=== PATIENT | male | born 1965 | race Caucasian/White ===

== ENCOUNTER 2016-05-30 13:17 | Outpatient (RCR) | payer MEDICARE, MEDICAID ==
--- OUTSIDE RECORDS SUMMARY | 2016-05-16 15:02 | XMS REPORT | Continuity of Care Document ---
Author Author [facility] Organization [facility] Address Unknown Phone Unavailable Care Team Providers Care Chief Airline Radio Operator Name Role Phone Gildardo Walker PCP [phone] Source Comments Some departments are not documenting in the electronic medical record. If you do not see the information that you expected, contact Release of Information in the Health Information Management department at [phone] for further assistance in locating additional records.[facility] Active Allergies and Adverse Reactions Allergen Noted Date Severity Reactions Comments Codeine 02/10/2014 NAUSEA AND VOMITING Morphine 02/10/2014 ITCHING Current Medications Prescription Sig. Disp. Refills Start End Date Status Date amLODIPine (NORVASC) 10 Take 10 mg by mouth every Active mg tablet morning. clonazePAM (KLONOPIN) 2 Take 2 mg by mouth twice Active mg tablet daily. sertraline (ZOLOFT) 100 Take 100 mg by mouth at Active mg tablet bedtime daily. acyclovir (ZOVIRAX) 400 Take 400 mg by mouth Active mg tablet twice daily. pregabalin (LYRICA) 50 mg Take 50 mg by mouth three Active capsule times daily. ondansetron (ZOFRAN) 8 mg Take 8 mg by mouth every Active tablet 8 hours as needed. docusate (COLACE) 100 mg Take 1 Cap by mouth twice 60 Cap 3 03/13/20 Active capsule daily as needed for 14 Constipation. oxyCODONE (ROXICODONE) 5 Take 1-2 Tabs by mouth 40 Tab 0 04/07/20 Active mg tablet every 4 hours as needed 14 for Pain Earliest Fill Date: 04/07/14 senna/docusate Take 1 Tab by mouth twice 30 Tab 3 04/07/20 Active (SENOKOT-S) 8.6/50 mg daily as needed 14 tablet (constipation). aspirin 325 mg tablet Take 1 Tab by mouth 90 Tab 3 04/07/20 Active daily. 14 polyethylene glycol 3350 Take 1 Packet by mouth 12 Each 3 04/07/20 Active (MIRALAX) 17 g packet twice daily as needed 14 (constipation). Active Problems Problem Noted Date History of urostomy 04/21/2014 C. difficile diarrhea 03/31/2014 Incontinence 03/26/2014 Ureteral stricture, left 03/12/2014 Incontinence of urine 02/10/2014 Erectile dysfunction 02/10/2014 Urinary retention 02/10/2014 Rectal cancer (HCC) 02/10/2014 Overview: [id number] S/p brain-adjuvant chemo/XRT S/p LAR with diverting ileostomy S/p ileostomy takedown. Ureteral stricture 02/10/2014 Overview: Indwelling JJ stent on left Social History Tobacco Use Types Packs/Day Years Used Date Never Smoker Smokeless Tobacco: Never Used Alcohol Use Drinks/Week oz/Week Comments No Last Filed Vital Signs Vital Sign Reading Time Taken Blood Pressure 109/75 04/21/2014 8:37 AM CDT Pulse 80 04/21/2014 8:37 AM CDT Temperature 36.7 C (98.1 F) 04/07/2014 11:43 AM CDT Respiratory Rate - - Height 1.702 m (5' 7") 04/21/2014 8:37 AM CDT Weight 77.111 kg (170 lb) 04/21/2014 8:37 AM CDT Body Mass Index 26.62 04/21/2014 8:37 AM CDT Oxygen Saturation 100% 04/07/2014 11:43 AM CDT Plan of Care Health Maintenance Due Date Last Done Comments Physical (Comprehensive) 1973 Exam Pertussis Vaccine 1977 Tetanus Vaccine 1983 Influenza Vaccine 03/17/2016 Results from Last 3 Months Not on file
[2016-05-16 15:09] LABS: BASOPHILS % (AUTO) 0 % (0-10); EOSINOPHILS # (AUTO) 0.2 10^3/uL (0.0-0.3); EOSINOPHILS % (AUTO) 3 % (0-10); LYMPHOCYTES # (AUTO) 1.9 X 10^3 (1.0-4.0); LYMPHOCYTES % (AUTO) 24 % (12-44); MEAN CORPUSCULAR HEMOGLOBIN 27 PG (25-34); MEAN CORPUSCULAR HGB CONC 34 G/DL (32-36); MEAN CORPUSCULAR VOLUME 80 FL (80-99); MEAN PLATELET VOLUME 9.4 FL (7.4-10.4); MONOCYTES # (AUTO) 0.4 X 10^3 (0.0-1.0); MONOCYTES % (AUTO) 5 % (0-12); NEUTROPHILS # (AUTO) 5.3 X 10^3 (1.8-7.8); NEUTROPHILS % (AUTO) 68 % (42-75); PLATELET COUNT 380 10^3/uL (130-400); RED CELL DISTRIBUTION WIDTH 14.9 % (10.0-14.5); WHITE BLOOD COUNT 7.8 10^3/uL (4.3-11.0)
[2016-05-16 15:35] LABS: ALBUMIN 4.3 G/DL (3.2-4.5); BILIRUBIN,TOTAL 0.6 MG/DL (0.1-1.0); CALCIUM 8.8 MG/DL (8.5-10.1); CREATININE SERUM 1.5 MG/DL (0.60-1.30); POTASSIUM 4.2 MMOL/L (3.6-5.0); TOTAL PROTEIN 7.2 G/DL (6.4-8.2)
[~2016-05-30 13:17] MED LIST: ACHYD1T PO; ACID1TAB PO; ACID1TAB5 PO; ALPR0.5T PO; ALPR0.5T7 PO; AMIT25TA9 PO; AMIT75TA2 PO; AMLO10TA PO; AMLO5TAB2 PO; AMOX500C2 PO; AMOX500T2 PO; AMPI250C11 PO; ASCO500T20 PO; ASPI1TAB22 PO; BISA5TAB8 PO; BTH25T1 PO; CEFU250T PO; CIPR-225 PO; CIPR500T78 PO; CLON2TAB3 PO; CPR250T PO; CRANBERRY JUICE; DICY10CA12 PO; DOXE100C4 PO; FERR324T PO; FNT100TD TD; FRS325T PO; GABA-488 PO; GABA600T2 PO; GBPN300C PO; HYDR-2890 PO; HYDR-3458 PO; HYDR-3583 PO; HYDR-3720 PO; HYOS0.1234 PO; HYOS0.1283 SL; LACT1CAP39 PO; LACT1CAP62 PO; LEVO750T6 PO; LOPE2CAP PO; MAG PO; MAGN400T29 PO; METO5TAB2 PO; METR500T17 PO; MGX400T PO; MTR500T PO; NITR-65 PO; ONDA-42 SL; ONDA8TAB13 PO; ONDA8TAB2 PO; ONDA8TAB9 PO; ONDN4T PO; OXC10TCR PO; OXYC-12 PO; OXYC-465; OXYC-465 PO; OXYC1TAB16 PO; OXYC1TAB17 PO; OXYC20TA14 PO; OXYC30TA80 PO; Oxycodone Hcl PO; PANT40TA PO; PHEN100T26 PO; PHEN200T27 PO; PNT40TEC PO; POTA10CA43 PO; POTA10TA17 PO; POTA10TA36 PO; POTA10TA6 PO; PREG75CA PO; PRM25T PO; PROC25SU2 PR; PROM25SU10 PR; PROM25TA14 PO; PROM50SU10 RC; SCR1T1 PO; SERT100T8 PO; SOLI5TAB4 PO; SRTR100T PO; SULF-222 PO; TMZP15C PO; TRAM50TA2 PO; ceftin PO
[2016-05-30] MEDS ORDERED: FERRIC CARBOXYMALTOSE (CANCER) 750 MG in NS (IVPB) 250 ML IV SCH (14:00)
[2016-05-30] MEDS ORDERED: FERRIC CARBOXYMALTOSE 750 MG/15 ML (CANCER CTR) IV SCH (14:00)
[2016-05-30 14:02] LABS: BILIRUBIN,URINE NEGATIVE (NEGATIVE); KETONES,URINE NEGATIVE (NEGATIVE); LEUKOCYTE ESTERASE ,URINE 3+ (NEGATIVE); NITRITE,URINE POSITIVE (NEGATIVE); PH,URINE 6.5 (5-9); PROTEIN,URINE 3+ (NEGATIVE); UROBILINOGEN,URINE NORMAL (NORMAL)
[2016-05-30 14:18] LABS: WBC,URINE TNTC /HPF
[2016-08-14] MEDS ORDERED: CIPR-225 PO (04:04)
[2016-08-14] MEDS ORDERED: PROM25TA14 PO (04:04)
[2016-08-19] MEDS ORDERED: AMOX500C2 PO (08:53)
== END 2016-08-14 | disposition home or self-care (01) ==
LOC: ONC 13:17
PROVIDERS: ATTEND Internal Medicine Hematology & Oncology
DX: C20 Malignant neoplasm of rectum (principal); D50.9 Iron deficiency anemia, unspecified; F33.9 Major depressive disorder, recurrent, unspecified; G47.00 Insomnia, unspecified; N39.490 Overflow incontinence; Z79.899 Other long term (current) drug therapy; Z92.3 Personal history of irradiation
CPT/HCPCS: 36415; 80053; 81000; 82378; 82728; 83540; 85025; 87077; 87088; 87186; 96365; 96523; 99213

== ENCOUNTER 2016-08-13 23:51 | Emergency (ER) | payer MEDICARE, MEDICAID ==
[~2016-08-13] VITALS: Ht 170.2 cm; Wt 86.2 kg
--- OUTSIDE RECORDS SUMMARY | 2016-08-13 23:58 | XMS REPORT | Continuity of Care Document ---
Author Author [facility] Organization [facility] Address Unknown Phone Unavailable Care Team Providers Care Boarding Room Fixer Name Role Phone Gildardo Walker PCP [phone] Source Comments Some departments are not documenting in the electronic medical record. If you do not see the information that you expected, contact Release of Information in the Health Information Management department at [phone] for further assistance in locating additional records.[facility] Active Allergies and Adverse Reactions Allergen Noted [...] retention 02/10/2014 Rectal cancer (HCC) 02/10/2014 Overview: [id number] S/p brain-adjuvant chemo/XRT S/p LAR with diverting [...]
[2016-08-14] MEDS ORDERED: NS IV 1000 ML 1,000 ML IV ONE (00:45)
[2016-08-14] MEDS ORDERED: PROMETHAZINE INJ 25 MG/ML (PHENERGAN) AMP IVP ONE (00:45)
[2016-08-14] MEDS ORDERED: HYOSCYAMINE 0.125 MG (LEVSIN) TAB SL ONE (00:45)
[2016-08-14] MEDS ORDERED: fentaNYL INJECTION 100 MCG/2 ML AMP IVP ONE ×2 (00:45→02:45)
[2016-08-14 01:17] LABS: BASOPHILS % (AUTO) 0 % (0-10); EOSINOPHILS % (AUTO) 0 % (0-10); LYMPHOCYTES # (AUTO) 2.2 X 10^3 (1.0-4.0); LYMPHOCYTES % (AUTO) 19 % (12-44); MEAN CORPUSCULAR HEMOGLOBIN 28 PG (25-34); MEAN CORPUSCULAR HGB CONC 34 G/DL (32-36); MEAN CORPUSCULAR VOLUME 82 FL (80-99); MEAN PLATELET VOLUME 9.3 FL (7.4-10.4); MONOCYTES # (AUTO) 0.7 X 10^3 (0.0-1.0); MONOCYTES % (AUTO) 6 % (0-12); NEUTROPHILS # (AUTO) 8.7 X 10^3 (1.8-7.8); NEUTROPHILS % (AUTO) 75 % (42-75); PLATELET COUNT 480 10^3/uL (130-400); RED CELL DISTRIBUTION WIDTH 15.3 % (10.0-14.5); WHITE BLOOD COUNT 11.6 10^3/uL (4.3-11.0)
[2016-08-14 01:28] LABS: BILIRUBIN,URINE NEGATIVE (NEGATIVE); KETONES,URINE NEGATIVE (NEGATIVE); LEUKOCYTE ESTERASE ,URINE 3+ (NEGATIVE); NITRITE,URINE POSITIVE (NEGATIVE); PH,URINE 7 (5-9); PROTEIN,URINE 2+ (NEGATIVE); UROBILINOGEN,URINE NORMAL (NORMAL)
[2016-08-14 01:37] LABS: ALBUMIN 4.4 G/DL (3.2-4.5); BILIRUBIN,TOTAL 0.8 MG/DL (0.1-1.0); CALCIUM 9.2 MG/DL (8.5-10.1); CREATININE SERUM 1.35 MG/DL (0.60-1.30); POTASSIUM 3.2 MMOL/L (3.6-5.0); TOTAL PROTEIN 7.5 G/DL (6.4-8.2)
[2016-08-14] MEDS ORDERED: KCL 10 MEQ TAB (MICRO K) PO ONE (02:15)
[2016-08-14] MEDS ORDERED: CIPROFLOXACIN 500 MG (CIPRO) TABLET PO ONE (02:15)
[2016-08-14] MEDS ORDERED: cefTRIAXone INJECTION 1,000 MG in NORMAL SALINE (BAXTER MINI) 50 ML IV ONE (02:30)
[2016-08-14] MEDS ORDERED: ONDANSETRON 4 MG/2 ML (SDV) Z0FRAN IVP ONE (02:30)
[2016-08-14] MEDS ORDERED: NS W/KCL 20 MEQ/L 1,000 ML IV ONE (02:45)
[2016-08-14] MEDS ORDERED: RX-HYOSCYAMINE 0.125 MG SL (LEVSIN) PPK#6 SL STA (03:55)
[2016-08-14] MEDS ORDERED: CIPR-225 PO (04:04)
[2016-08-14] MEDS ORDERED: PROM25TA14 PO (04:04)
--- NOTE | 2016-08-14 04:04 | ED GI ---
General Chief Complaint: Abdominal/GI Problems Stated Complaint: STOMACH PAIN, N/V/D Nursing Triage Note: c/o chronic abdomen pain and vomiting. reports has been worse since , reports the only thing that helps is phenergan and fentanyl Sepsis Screen: No Definite Risk Source of Information: Patient, Old Records Exam Limitations: No Limitations History of Present Illness Time Seen By Provider: 00:39 Initial Comments This 50-year-old man presents to the emergency room with vomiting, diarrhea, and abdominal pain since . He cannot keep his home medications down. He has a urostomy and has a history of colorectal cancer. He had a colostomy at one time and has been reversed. He has continued to produce stools today that are diarrheal in nature. He denies fever. He has significant abdominal cramping. He denies any drug or alcohol use. He has had numerous ER visits for recurrent problems with nausea, vomiting, and abdominal pain. Allergies and Home Medications Allergies Coded Allergies: morphine (Verified Allergy, Intermediate, 02/21/13) codeine (Unverified Adverse Reaction, Unknown, NAUSEA, 03/20/14) Home Medications Ciprofloxacin HCl 500 Mg Tablet #14 500 MG PO BID Prescribed by: SHAY BILLINGS on 08/14/16 0404 Clonazepam 2 Mg Tablet 2 MG PO BID PRN PRN ANXIETY (Reported) Doxepin HCl 100 Mg Capsule #30 1 CAP PO DAILY (Reported) Gabapentin 600 Mg Tablet #90 1 TAB PO TID (Reported) Oxycodone HCl 30 Mg Tablet #56 1 TAB PO BID (Reported) Oxycodone HCl/Acetaminophen 1 Each Tablet #168 (Reported) Pantoprazole Sodium 40 Mg Tablet.dr 40 MG PO DAILY PRN PRN ACID REFLUX (Reported ) Pregabalin 75 Mg Capsule 150 MG PO BID (Reported) TAKES 2 (75MG) CAPSULES Promethazine HCl 25 Mg Tablet #10 25 MG PO Q6H PRN PRN NAUSEA/VOMITING Prescribed by: SHAY BILLINGS on 08/14/16 0404 Sertraline HCl 100 Mg Tablet #30 1 TAB PO DAILY (Reported) Review of Systems Constitutional: no symptoms reported EENTM: No Symptoms Reported Respiratory: No Symptoms Reported Cardiovascular: No Symptoms Reported Gastrointestinal: See HPI Genitourinary: See HPI Musculoskeletal: no symptoms reported Skin: no symptoms reported Psychiatric/Neurological: No Symptoms Reported Endocrine: No Symptoms Reported Past [id number] Hx Patient Social History Alcohol Use: Denies Use Recreational Drug Use: No Smoking Status: Never a Smoker Recent Foreign Travel: No Contact w/Someone Who Travel: No Recent Infectious Disease Expo: No Recent Hopitalizations: No Physical Abuse Screen: No Sexual Abuse: No Immunizations Up To Date Tetanus Booster (TDap): Unknown PED Vaccines UTD: No Seasonal Allergies Seasonal Allergies: No Surgeries HX Surgeries: Yes Surgeries: Abdominal, Bladder Surgery, Bowel Surgery, Cystectomy, Orthopedic, Rectal, Renal, Vascular Surgery Respiratory Hx Respiratory Disorders: No Cardiovascular Hx Cardiac Disorders: Yes (PT SELF DC'D BP MEDICATIONS) Cardiac Disorders: Hypertension Neurological Hx Neurological Disorders: Yes Neurological Disorders: Headaches /Migraines Reproductive System Hx Reproductive Disorders: No Sexually Transmitted Disease: No HIV/AIDS: No Genitourinary Hx Genitourinary Disorders: Yes (HYDRONEPHROSIS-S/P LEFT URETERAL STENT AND NOW LEFT UROSTOMY; E.D. ) Genitourinary Disorders: Neurogenic Bladder, UTI-Chronic Gastrointestinal Hx Gastrointestinal Disorders: Yes Gastrointestinal Disorders: Gastroesophageal Reflux, Gastrointestinal Bleed, Chronic Diarrhea, C-Diff, Hiatal Hernia Musculoskeletal Hx Musculoskeletal Disorders: No Endocrine Hx Endocrine Disorders: No HEENT HX ENT Disorders: Yes (WEARS GLASSES) Loss of Vision: Denies Hearing Impairment: Denies Cancer Hx Cancer: Yes (RECTAL CANCER DX 11/2012--S/P SURGERY, CHEMO AND RADIATION) Cancer: Rectal Psychosocial Hx Psychiatric Problems: Yes Behavioral Health Disorders: Anxiety, Depression Integumentary HX Skin/Integumentary Disorder: No Blood Transfusions Hx Blood Disorders: No Adverse Reaction to a Blood Tr: No Family Medical History Family Medial History: Cataract 03 FATHER, Onset:Unknown Chest pain 03 FATHER, Onset:50's - 60 Family history: Allergy 03 MOTHER Family history: Arthritis 03 FATHER 03 MOTHER Family history: Asthma 03 MOTHER Family history: Cardiovascular disease 03 FATHER Family history: Diabetes mellitus 03 FATHER 03 MOTHER Family history: Hypertension 03 FATHER 03 MOTHER Headache 03 FATHER 03 MOTHER Heart disease 03 FATHER History of - respiratory disease 03 MOTHER Hypercholesterolemia 03 FATHER 03 MOTHER Kidney disease 03 MOTHER Psychotic disorder 03 MOTHER Visual impairment 03 FATHER 03 MOTHER No Family History of: Abdominal aortic aneurysm Marland's disease Alcoholism Aphasia Cancer Cancer of colon Congenital heart disease Congestive heart failure Cystic fibrosis Dementia Dysphagia Family history: Alzheimer's disease Family history: Breast disease Family history: Coronary thrombosis Family history: Gastrointestinal disease Family history: Glaucoma Family history: Osteoporosis Family history: Thyroid disorder Hearing loss Hereditary disease History of - anemia History of - disorder History of drug abuse Human immunodeficiency virus (HIV) seropositivity Infertile Malignant neoplasm of lung Myocardial infarction Parkinson's disease Prostate cancer Seizure disorder Stroke Tuberculosis Physical Exam Vital Signs VS - Last 72 Hours, by Label 08/14/16 08/14/16 00:04 04:12 Temp 98.8 98.0 Pulse 83 70 Resp 18 18 B/P 128/94 Pulse Ox 95 96 O2 Delivery Room Air Capillary Refill : Less Than 3 Seconds General Appearance: WD/WN mild distress HEENT: PERRL/EOMI normal ENT inspection pharynx normal Neck: normal inspection Respiratory: lungs clear normal breath sounds no respiratory distress no accessory muscle use Cardiovascular: regular rate, rhythm no edema no murmur Gastrointestinal: normal bowel sounds soft tenderness (lower abdomen) Extremities: normal inspection no pedal edema Neurologic/Psychiatric: heel pricker II-XII nml as tested no motor/sensory deficits alert normal mood/affect oriented x 3 Skin: normal color warm/dry Progress/Results/Core Measures Results/Orders Lab Results Laboratory Tests Test 08/14/16 01:05 08/14/16 01:13 Range/Units Alanine Aminotransferase (ALT/SGPT) 30 0-55 U/L Albumin 4.4 3.2-4.5 G/DL Alkaline Phosphatase 92 40-136 U/L Anion Gap 13 5-14 MMOL/L Aspartate Amino Transf (AST/SGOT) 19 5-34 U/L BUN/Creatinine Ratio 8 Basophils # (Auto) 0.0 0.0-0.1 10^3/uL Basophils (%) (Auto) 0 0-10 % Blood Urea Nitrogen 11 7-18 MG/DL Calcium Level 9.2 8.5-10.1 MG/DL Carbon Dioxide Level 20 L 21-32 MMOL/L Chloride Level 108 H 98-107 MMOL/L Creatinine 1.35 H 0.60-1.30 MG/DL Eosinophils # (Auto) 0.0 0.0-0.3 10^3/uL Eosinophils (%) (Auto) 0 0-10 % Estimat Glomerular Filtration Rate 56 Glucose Level 87 70-105 MG/DL Hematocrit 49 40-54 % Hemoglobin 17.0 13.3-17.7 G/DL Lipase 26 8-78 U/L Lymphocytes # (Auto) 2.2 1.0-4.0 X 10^3 Lymphocytes (%) (Auto) 19 12-44 % Mean Corpuscular Hemoglobin 28 25-34 PG Mean Corpuscular Hemoglobin Concent 34 32-36 G/DL Mean Corpuscular Volume 82 80-99 FL Mean Platelet Volume 9.3 7.4-10.4 FL Monocytes # (Auto) 0.7 0.0-1.0 X 10^3 Monocytes (%) (Auto) 6 0-12 % Neutrophils # (Auto) 8.7 H 1.8-7.8 X 10^3 Neutrophils (%) (Auto) 75 42-75 % Platelet Count 480 H 130-400 10^3/uL Potassium Level 3.2 L 3.6-5.0 MMOL/L Red Blood Count 6.00 H 4.35-5.85 10^6/uL Red Cell Distribution Width 15.3 H 10.0-14.5 % Sodium Level 141 135-145 MMOL/L Total Bilirubin 0.8 0.1-1.0 MG/DL Total Protein 7.5 6.4-8.2 G/DL White Blood Count 11.6 H 4.3-11.0 10^3/uL Ur Tricyclic Antidepressants Screen POSITIVE H NEGATIVE Urine Amphetamines Screen NEGATIVE NEGATIVE Urine Bacteria LARGE H /HPF Urine Barbiturates Screen NEGATIVE NEGATIVE Urine Benzodiazepines Screen NEGATIVE NEGATIVE Urine Bilirubin NEGATIVE NEGATIVE Urine Cannabinoids Screen NEGATIVE NEGATIVE Urine Casts NONE /LPF Urine Clarity SLIGHTLY CLOUDY Urine Cocaine Screen NEGATIVE NEGATIVE Urine Color YELLOW Urine Crystals NONE /LPF Urine Culture Indicated YES Urine Glucose (UA) NEGATIVE NEGATIVE Urine Ketones NEGATIVE NEGATIVE Urine Leukocyte Esterase 3+ H NEGATIVE Urine Methadone Screen NEGATIVE NEGATIVE Urine Methamphetamines Screen NEGATIVE NEGATIVE Urine Mucus SMALL H /LPF Urine Nitrite POSITIVE H NEGATIVE Urine Opiates Screen NEGATIVE NEGATIVE Urine Oxycodone Screen NEGATIVE NEGATIVE Urine Phencyclidine Screen NEGATIVE NEGATIVE Urine Propoxyphene Screen NEGATIVE NEGATIVE Urine Protein 2+ H NEGATIVE Urine RBC 5-10 H /HPF Urine RBC (Auto) 2+ H NEGATIVE Urine Specific [place] 1.010 L 1.016-1.022 Urine Urobilinogen NORMAL NORMAL MG/DL Urine WBC 10-25 H /HPF Urine pH 7 5-9 My Orders Orders-SHAY ALFONSO MD Cbc With Automated Diff (08/14/16 00:45) Comprehensive Metabolic Panel (08/14/16 00:45) Lipase (08/14/16 00:45) Ua Culture If Indicated (08/14/16 00:45) Saline Lock/Iv-Start (08/14/16 00:45) Ns Iv 1000 Ml (Sodium Chloride 0.9%) (08/14/16 00:45) Promethazine Injection (Phenergan Injec (08/14/16 00:45) Hyoscyamine Sl Tablet (Levsin Sl Tablet) (08/14/16 00:45) Fentanyl Injection (Sublimaze Injection (08/14/16 00:45) Urine Culture (08/14/16 01:13) Potassium Chloride (Tablet) (Klor Con Ta (08/14/16 02:15) Ciprofloxacin Tablet (Cipro Tablet) (08/14/16 02:15) Ondansetron Injection (Zofran Injectio (08/14/16 02:30) Ceftriaxone Injection (Rocephin Injectio (08/14/16 02:30) Drug Screen Stat (Urine) (08/14/16 02:21) Fentanyl Injection (Sublimaze Injection (08/14/16 02:45) Ns W/Kcl 20 Meq/L (Ns Iv W/Kcl 20 Meq/L) (08/14/16 02:45) Rx-Hyoscyamine Tab (Rx-Levsin Sl) (08/14/16 03:55) Medications Given in ED Current Medications Medications Dose Ordered Sig/Kenny Route Start Time Stop Time Status Last Admin Dose Admin Ceftriaxone Sodium/Sodium Chloride 50 ml @ 100 mls/hr ONCE ONCE IV 08/14/16 02:30 08/14/16 02:59 DC 08/14/16 02:24 100 MLS/HR Fentanyl Citrate 75 mcg ONCE ONCE IVP 08/14/16 00:45 08/14/16 00:47 DC 08/14/16 01:08 75 MCG Fentanyl Citrate 75 mcg 75 mcg ONCE ONCE IVP 08/14/16 02:45 08/14/16 02:47 DC 08/14/16 02:51 75 MCG Hyoscyamine Sulfate 0.25 mg ONCE ONCE SL 08/14/16 00:45 08/14/16 00:47 DC 08/14/16 01:08 0.25 MG Ondansetron HCl 8 mg 8 mg ONCE ONCE IVP 08/14/16 02:30 08/14/16 02:31 DC 08/14/16 02:24 8 MG Potassium Chloride/Sodium Chloride 1,000 ml @ 500 mls/hr Q2H ONCE IV 08/14/16 02:45 08/14/16 04:44 08/14/16 02:52 500 MLS/HR Promethazine HCl 25 mg ONCE ONCE IVP 08/14/16 00:45 08/14/16 00:47 DC 08/14/16 01:08 25 MG Sodium Chloride 1,000 ml @ 0 mls/hr Q0M ONCE IV 08/14/16 00:45 08/14/16 00:47 DC 08/14/16 01:08 0 MLS/HR Vital Signs/I&O Vital Sign - Last 12Hours 08/14/16 08/14/16 00:04 04:12 Temp 98.8 98.0 Pulse 83 70 Resp 18 18 B/P 128/94 Pulse Ox 95 96 O2 Delivery Room Air Blood Pressure Mean: 105 Progress Note : Progress Note Patient was initially treated with fentanyl and Phenergan which she reports is the best treatment for these flares of abdominal pain and vomiting. He was refractory to the initial therapy and began dry heaving. Zofran was added along with another dose of atenolol. Levsin was administered for cramping. IV fluids were administered. Potassium was ordered but oral dosing was abandoned due to the refractory vomiting. He was then given 750 mL of normal saline with 20 meq potassium. He was then feeling much improved and was dismissed in stable condition he was sent home with a take-home packet of Levsin and a prescription for Phenergan. For treatment of his urinary tract infection. Cipro was prescribed for outpatient therapy. His prior urine cultures were reviewed prior to prescribing. Departure Impression Impression: Primary Impression: Nausea, vomiting, and diarrhea Additional Impressions: Lower abdominal pain Urinary tract infection Qualified Code: N39.0 - Urinary tract infection, site not specified Hypokalemia Disposition: 01 HOME, SELF-CARE Condition: Improved Departure-Patient Inst. Decision time for Depature: 04:00 Referrals: RIVER ARCE MD (PCP) Primary Care Physician LINDA BENTLEY (Family) Primary Care Physician Patient Instructions: Acute Abdomen (Belly Pain), Adult (DC) Add. Discharge Instructions: Drink plenty of clear liquids. Use Phenergan as prescribed for nausea. Dissolve Levsin under the tongue every 4 hours as needed for abdominal cramping and diarrhea. Return to emergency room if symptoms worsen. Follow-up with your primary care provider to review urine culture results in the next 48 hours. Complete your antibiotics as prescribed. All discharge instructions reviewed with patient and/or family. Voiced understanding. Scripts Promethazine HCl (Promethazine Tablet)25 Mg [id number] Mg PO Q6H PRN NAUSEA/ VOMITING #10 TAB Prov:SHAY ALFONSO MD 08/14/16 Ciprofloxacin HCl (Cipro)500 Mg [id number] Mg PO BID #14 TAB Prov:SHAY ALFONSO MD 08/14/16 SHAY ALFONSO MD Aug 14, 2016 04:04
[2016-08-14 04:12] VITALS: BP 145/93
[2016-08-19] MEDS ORDERED: AMOX500C2 PO (08:53)
== END 2016-08-14 04:14 | disposition home or self-care (01) ==
LOC: EDUNIT# 23:51 → ER 23:53
DX: R11.2 Nausea with vomiting, unspecified (principal); R19.7 Diarrhea, unspecified; R10.30 Lower abdominal pain, unspecified; E87.6 Hypokalemia; N39.0 Urinary tract infection, site not specified; I10 Essential (primary) hypertension; Z79.899 Other long term (current) drug therapy; Z85.048 Personal history of other malignant neoplasm of rectum, rectosigmoid junction, and anus; Z93.6 Other artificial openings of urinary tract status
CPT/HCPCS: 36415; 80053; 80306; 81000; 83690; 85025; 87077; 87088; 87186; 96361; 96374; 96375; 96376

== ENCOUNTER 2016-09-21 09:19 | Inpatient (IN) | payer MEDICARE, MEDICAID ==
[~2016-09-21] VITALS: Ht 167.6 cm; Wt 87.6 kg
--- OUTSIDE RECORDS SUMMARY | 2016-09-21 09:26 | XMS REPORT | Continuity of Care Document ---
Author Author [facility] Organization [facility] Address Unknown Phone Unavailable Care Team Providers Care Digitizer Name Role Phone Gildardo Walker PCP [phone] Source Comments Some departments are not documenting in the electronic medical record. If you do not see the information that you expected, contact Release of Information in the Health Information Management department at [phone] for further assistance in locating additional records.[facility] Active Allergies and Adverse Reactions Allergen [...] retention 02/10/2014 Rectal cancer (HCC) 02/10/2014 Overview: [id number] S/p brain-adjuvant chemo/XRT S/p LAR with diverting [...]
[2016-09-21] MEDS ORDERED: NALOXONE 2 MG/2 ML (NARCAN) SYR ONE (09:37)
--- NOTE | 2016-09-21 09:39 | ED General ---
General Chief Complaint: Neurological Problems Stated Complaint: CONFUSION Source of Information: Patient (PT IS VERY POOR HISTORIAN AND CAN GIVE NO INFORMATION), Old Records History of Present Illness Time Seen by Provider: 09:20 Initial Comments PT ARRIVES VIA WHEELCHAIR BY [facility]--NO CALL FROM THEM PT WITH APPARENT CONFUSION--NO OTHER INFORMATION IS OBTAINABLE SON -IN-LAW IS HERE WITH PT AND CAN GIVE NO INFORMATION AT ALL ABOUT CURRENT PROBLEM OR PAST MEDICAL HISTORY. HE HAS NO IDEA WHY HE WAS SENT HERE PCP: MICHELLE-K Allergies and Home Medications Allergies Coded Allergies: morphine (Verified Allergy, Intermediate, 02/21/13) codeine (Unverified Adverse Reaction, Unknown, NAUSEA, 03/20/14) Home Medications Amoxicillin 500 Mg Capsule 500 MG PO TID (Reported) Ciprofloxacin HCl 500 Mg Tablet #14 500 MG PO BID Prescribed by: SHAY BILLINGS on 08/14/16 0404 Clonazepam 2 Mg Tablet 2 MG PO BID PRN PRN ANXIETY (Reported) Doxepin HCl 100 Mg Capsule #30 1 CAP PO DAILY (Reported) Gabapentin 600 Mg Tablet #90 1 TAB PO TID (Reported) Oxycodone HCl 30 Mg Tablet #56 1 TAB PO BID (Reported) Oxycodone HCl/Acetaminophen 1 Each Tablet #168 (Reported) Pantoprazole Sodium 40 Mg Tablet.dr 40 MG PO DAILY PRN PRN ACID REFLUX (Reported ) Pregabalin 75 Mg Capsule 150 MG PO BID (Reported) TAKES 2 (75MG) CAPSULES Promethazine HCl 25 Mg Tablet #10 25 MG PO Q6H PRN PRN NAUSEA/VOMITING Prescribed by: SHAY BILLINGS on 08/14/16 0404 Sertraline HCl 100 Mg Tablet #30 1 TAB PO DAILY (Reported) Constitutional: see HPI (PT UANBLE TO GIVE ANY INFORMATION) Past Uhpbnmx-Tmqgio-Gnlcjr Hx Patient Social History Alcohol Use: Denies Use Recreational Drug Use: No Smoking Status: Never a Smoker Recent Hopitalizations: No Immunizations Up To Date Tetanus Booster (TDap): Unknown PED Vaccines UTD: No Seasonal Allergies Seasonal Allergies: No Surgeries HX Surgeries: Yes (COMPLETE CYSTECTOMY AND LEFT SIDED UROSTOMY; RECTAL TUMOR RESECTION WITH ILEOSTOMY WITH REVERSAL; URETERAL STENTS; PORT RIGHT CHEST; LEFT HAND SURGERY) Surgeries: Abdominal, Bladder Surgery, Bowel Surgery, Cystectomy, Orthopedic, Rectal, Renal, Vascular Surgery Respiratory Hx Respiratory Disorders: No Cardiovascular Hx Cardiac Disorders: Yes (PT SELF DC'D BP MEDICATIONS) Cardiac Disorders: Hypertension Neurological Hx Neurological Disorders: Yes Neurological Disorders: Headaches /Migraines Reproductive System Hx Reproductive Disorders: No Sexually Transmitted Disease: No HIV/AIDS: No Genitourinary Hx Genitourinary Disorders: Yes (HYDRONEPHROSIS-S/P LEFT URETERAL STENT AND NOW LEFT UROSTOMY; E.D. ) Genitourinary Disorders: Neurogenic Bladder, UTI-Chronic Gastrointestinal Hx Gastrointestinal Disorders: Yes (GASTROPARESIS; MULTITUDE OF VISITS FOR NAUSEA/VOMITING/DIARRHEA-GI COMPLAINTS, CHRONIC ABDOMINAL AND GROIN PAIN-- SUSPECTED NARCOTIC BOWEL; GASTRITIS; COLORECTAL CANCER ) Gastrointestinal Disorders: Gastroesophageal Reflux, Gastrointestinal Bleed, Chronic Diarrhea, C-Diff, Hiatal Hernia Musculoskeletal Hx Musculoskeletal Disorders: No Endocrine Hx Endocrine Disorders: No HEENT HX ENT Disorders: Yes (WEARS GLASSES) Loss of Vision: Denies Hearing Impairment: Denies Cancer Hx Cancer: Yes (RECTAL CANCER DX 11/2012--S/P SURGERY, CHEMO AND RADIATION) Cancer: Rectal Psychosocial Hx Psychiatric Problems: Yes Behavioral Health Disorders: Anxiety, Depression Integumentary HX Skin/Integumentary Disorder: No Blood Transfusions Hx Blood Disorders: No Adverse Reaction to a Blood Tr: No Family Medical History Family Medial History: Cataract 03 FATHER, Onset:Unknown Chest pain 03 FATHER, Onset:50's - 60 Family history: Allergy 03 MOTHER Family history: Arthritis 03 FATHER 03 MOTHER Family history: Asthma 03 MOTHER Family history: Cardiovascular disease 03 FATHER Family history: Diabetes mellitus 03 FATHER 03 MOTHER Family history: Hypertension 03 FATHER 03 MOTHER Headache 03 FATHER 03 MOTHER Heart disease 03 FATHER History of - respiratory disease 03 MOTHER Hypercholesterolemia 03 FATHER 03 MOTHER Kidney disease 03 MOTHER Psychotic disorder 03 MOTHER Visual impairment 03 FATHER 03 MOTHER No Family History of: Abdominal aortic aneurysm [place]'s disease Alcoholism Aphasia Cancer Cancer of colon Congenital heart disease Congestive heart failure Cystic fibrosis Dementia Dysphagia Family history: Alzheimer's disease Family history: Breast disease Family history: Coronary thrombosis Family history: Gastrointestinal disease Family history: Glaucoma Family history: Osteoporosis Family history: Thyroid disorder Hearing loss Hereditary disease History of - anemia History of - disorder History of drug abuse Human immunodeficiency virus (HIV) seropositivity Infertile Malignant neoplasm of lung Myocardial infarction Parkinson's disease Prostate cancer Seizure disorder Stroke Tuberculosis Physical Exam Vital Signs Vital Sign - Last 12Hours 09/21/16 09:20 Temp 100.3 Pulse 105 Resp 18 B/P 146/108 Pulse Ox 89 O2 Delivery Room Air O2 Flow Rate 3 Capillary Refill : General Appearance: No Apparent Distress WD/WN Other (PT VERY DROWSY/LETHARGIC , SPEECH SLOW AND SLIGHTLY THICK-TONGUED. PT IS CONFUSED TO PLACE, TIME, SITUATION, AND CANNOT COMPLETE A SENTENCE, AND REPEATS THINGS OVER AND OVER. HAS DIFFICULTY FOLLOWING COMMANDS--HAS APPEARANCE OF BEING OVER-MEDICATED. UROSTOMY BAG WAS NOT ON AND URINE HAD SOAKED CLOTHING. PT INCONTINENT OF STOOL-- WEARS ADULT DIAPERS. ) HEENT: Other (PUPILS PINPOINT AND MINIMALLY REACTIVE) Neck: Full Range of Motion Normal Inspection Non Tender Supple Respiratory: Normal Breath Sounds No Accessory Muscle Use No Respiratory Distress Cardiovascular: Regular Rate, Rhythm No Edema No JVD No Murmur Normal Peripheral Pulses Gastrointestinal: Non Tender Soft Extremity: Normal Range of Motion No Calf Tenderness No Pedal Edema Neurologic/Psychiatric: No Motor/Sensory Deficits surgical pathologist II-XII Norm as Tested Other (MENTATION ABOVE) Skin: Normal Color Warm/Dry Progress/Results/Core Measures Results/Orders Lab Results Laboratory Tests Test 09/21/16 09:30 09/21/16 09:38 09/21/16 09:55 09/21/16 10:15 Range/Units Activated Partial Thromboplast Time 28 24-35 SEC Alanine Aminotransferase (ALT/SGPT) 64 H 0-55 U/L Albumin 4.6 H 3.2-4.5 G/DL Alkaline Phosphatase 84 40-136 U/L Anion Gap 10 5-14 MMOL/L Aspartate Amino Transf (AST/SGOT) 53 H 5-34 U/L BUN/Creatinine Ratio 10 Basophils # (Auto) 0.0 0.0-0.1 10^3/uL Basophils (%) (Auto) 0 0-10 % Blood Urea Nitrogen 15 7-18 MG/DL Calcium Level 9.5 8.5-10.1 MG/DL Carbon Dioxide Level 25 21-32 MMOL/L Chloride Level 105 98-107 MMOL/L Creatinine 1.52 H 0.60-1.30 MG/DL Eosinophils # (Auto) 0.2 0.0-0.3 10^3/uL Eosinophils (%) (Auto) 2 0-10 % Estimat Glomerular Filtration Rate 49 Glucose Level 106 H 70-105 MG/DL Hematocrit 47 40-54 % Hemoglobin 16.0 13.3-17.7 G/DL INR Comment 1.0 0.8-1.4 Lactic Acid Level 1.61 0.50-2.00 MMOL/L Lymphocytes # (Auto) 1.6 1.0-4.0 X 10^3 Lymphocytes (%) (Auto) 16 12-44 % Magnesium Level 1.9 1.8-2.4 MG/DL Mean Corpuscular Hemoglobin 29 25-34 PG Mean Corpuscular Hemoglobin Concent 34 32-36 G/DL Mean Corpuscular Volume 85 80-99 FL Mean Platelet Volume 10.5 H 7.4-10.4 FL Monocytes # (Auto) 0.7 0.0-1.0 X 10^3 Monocytes (%) (Auto) 6 0-12 % Neutrophils # (Auto) 7.7 1.8-7.8 X 10^3 Neutrophils (%) (Auto) 76 H 42-75 % Platelet Count 204 130-400 10^3/uL Potassium Level 3.8 3.6-5.0 MMOL/L Prothrombin Time 13.0 12.2-14.7 SEC Red Blood Count 5.47 4.35-5.85 10^6/uL Red Cell Distribution Width 13.8 10.0-14.5 % Serum Alcohol < 10 <10 MG/DL Sodium Level 140 135-145 MMOL/L TSH [place] Testing 2.57 0.35-4.94 UIU/ML Total Bilirubin 0.8 0.1-1.0 MG/DL Total Protein 7.9 6.4-8.2 G/DL White Blood Count 10.2 4.3-11.0 10^3/uL Glucometer 103 70-110 MG/DL El Test YES-POS Arterial Blood Base Excess -3.2 L -2.5-2.5 MMOL/L Arterial Blood HCO3 21 L 23-27 MMOL/L Arterial Blood Oxygen Saturation 95 94-100 % Arterial Blood Partial Pressure CO2 33 L 35-45 MMHG Arterial Blood Partial Pressure O2 70 L 79-93 MMHG Arterial Blood Total CO2 21.4 21.0-31.0 MMOL/L Arterial Blood pH 7.42 7.37-7.43 Blood Gas Inspired Oxygen 3 Blood Gas Patient Temperature 100.3 Blood Gas Puncture Site RT RAD Blood Gas Ventilator Setting NO Ur Tricyclic Antidepressants Screen NEGATIVE NEGATIVE Urine Amphetamines Screen NEGATIVE NEGATIVE Urine Bacteria MODERATE H /HPF Urine Barbiturates Screen NEGATIVE NEGATIVE Urine Benzodiazepines Screen POSITIVE H NEGATIVE Urine Bilirubin NEGATIVE NEGATIVE Urine Cannabinoids Screen NEGATIVE NEGATIVE Urine Casts NONE /LPF Urine Clarity VERY CLOUDY H Urine Cocaine Screen NEGATIVE NEGATIVE Urine Color YELLOW Urine Crystals NONE /LPF Urine Culture Indicated YES Urine Glucose (UA) NEGATIVE NEGATIVE Urine Ketones NEGATIVE NEGATIVE Urine Leukocyte Esterase 3+ H NEGATIVE Urine Methadone Screen NEGATIVE NEGATIVE Urine Methamphetamines Screen NEGATIVE NEGATIVE Urine Mucus NEGATIVE /LPF Urine Nitrite NEGATIVE NEGATIVE Urine Opiates Screen POSITIVE H NEGATIVE Urine Oxycodone Screen POSITIVE H NEGATIVE Urine Phencyclidine Screen NEGATIVE NEGATIVE Urine Propoxyphene Screen NEGATIVE NEGATIVE Urine Protein 3+ H NEGATIVE Urine RBC >100 H /HPF Urine RBC (Auto) 5+ H NEGATIVE Urine Specific [place] 1.010 L 1.016-1.022 Urine Squamous Epithelial Cells 0-2 /HPF Urine Urobilinogen NORMAL NORMAL MG/DL Urine WBC >100 H /HPF Urine pH 6 5-9 Micro Results Microbiology 09/21/16 Influenza Types A,B Antigen (PEPE) - Final, Complete My Orders Orders-JOSE ANTONIO WILEY DO Saline Lock/Iv-Start (09/21/16 09:24) Monitor-Rhythm Ecg Trace Only (09/21/16 09:24) Cbc With Automated Diff (09/21/16:24) Comprehensive Metabolic Panel (09/21/16:24) Lactic Acid Analyzer (09/21/16:24) Magnesium (09/21/16:24) Protime With Inr (09/21/16:24) Partial Thromboplastin Time (09/21/16 09:24) Ua Culture If Indicated (09/21/16:24) Blood Culture (09/21/16:24) Influenza A And B Antigens (09/21/16:24) Accucheck Stat ONCE (09/21/16 09:31) Ekg Tracing (09/21/16:31) O2 (09/21/16:31) Alcohol (09/21/16 09:31) Drug Screen Stat (Urine) (09/21/16 09:31) Thyroid Analyzer (09/21/16 09:31) Ct Head Wo (09/21/16 09:31) Chest 1 View, Ap/Pa Only (09/21/16 09:31) Arterial Blood Gas (09/21/16 09:55) Naloxone Injection (Narcan Injection) (09/21/16 09:45) Naloxone Injection (Narcan Injection) (09/21/16 09:37) Ondansetron Injection (Zofran Injectio (09/21/16 10:00) Ondansetron Injection (Zofran Injectio (09/21/16 09:46) Ondansetron Injection (Zofran Injectio (09/21/16 10:00) Hepatitis Panel Acute (09/21/16 10:30) Urine Culture (09/21/16 10:15) Ceftriaxone Injection (Rocephin Injectio (09/21/16 11:00) Medications Given in ED Current Medications Medications Dose Ordered Sig/Kenny Route Start Time Stop Time Status Last Admin Dose Admin Ceftriaxone Sodium/Sodium Chloride 50 ml @ 100 mls/hr ONCE ONCE IV 09/21/16 11:00 09/21/16 11:29 DC 09/21/16 11:09 100 MLS/HR Naloxone HCl 2 mg STK-MED ONCE .ROUTE 09/21/16 09:37 09/21/16 09:40 DC 09/21/16 09:42 2 MG Ondansetron HCl 8 mg 8 mg ONCE ONCE IVP 09/21/16 10:00 09/21/16 10:01 DC 09/21/16 09:50 8 MG Vital Signs/I&O Vital Sign - Last 12Hours 09/21/16 09/21/16 09/21/16 09/21/16 09:20 09:20 10:35 11:16 Temp 100.3 Pulse 105 91 88 Resp 18 18 18 B/P 146/108 122/60 Pulse Ox 89 98 98 O2 Delivery Room Air Nasal Cannula Nasal Cannula O2 Flow Rate 3 3 Progress Note : Progress Note O2 SATS 85% ON ROOM AIR ON ARRIVAL. UP TO 90% ON 4L/NC GAVE NARCAN WITH SOME IMPROVEMENT IN MENTATION-LESS CONFUSED AND SPEECH LESS SLURRED, ABLE TO FOLLOW SMIPLE COMMANDS, AND THEN BEGAN TO HAVE NAUSEA AND VOMITING SHORTLY AFTER. O2 SATS UP TO 100% ON 4L/NC AFTER NARCAN STILL REMAINED LETHARGIC HOWEVER. NO DETERIORATION IN PT'S CONDITION DURING ER STAY ECG Initial ECG Impression Time: 09:35 Initial ECG Rate: 97 Initial ECG Rhythm: Normal Sinus Initial ECG Impression: Normal Initial ECG Comparisson: Unchanged Diagnostic Imaging Comments CT HEAD--NO ACUTE PROCESS, PER RADIOLOGIST REPORT @ 1019 CXR--LOW LUNG VOLUMES WITH BIBASILAR ATELECTASIS--PER RADIOLOGIST REPORT @ 1044 Reviewed: Reviewed by Me Departure Communication Progress Notes 1050--SPOKE WITH DR. KEYS, COVERING FOR [facility]. ACCEPTS PT FOR ADMIT. Impression Impression: Primary Impression: Urinary tract infection Additional Impressions: Altered mental status Hypoxia Chronic narcotic use Chronic narcotic dependence SUSPECTED EXCESSIVE NARCOTIC USE Renal insufficiency MILDLY ELEVATED LIVER ENZYMES Disposition: ADMITTED INPATIENT Condition: Improved Decision to Admit Reason: Admit from ER (General) Decision to Admit/Date: Sep 21, 2016 Time/Decision to Admit Time: 10:50 Departure-Patient Inst. Referrals: RIVER ARCE MD (PCP) Primary Care Physician LINDA BENTLEY (Family) Primary Care Physician JOSE ANTONIO WILEY DO Sep 21, 2016 09:39
[2016-09-21] MEDS ORDERED: NALOXONE 2 MG/2 ML (NARCAN) SYR IV ONE (09:45)
[2016-09-21] MEDS ORDERED: ONDANSETRON 4 MG/2 ML (SDV) Z0FRAN ONE (09:46)
[2016-09-21 09:47] LABS: BASOPHILS % (AUTO) 0 % (0-10); EOSINOPHILS # (AUTO) 0.2 10^3/uL (0.0-0.3); EOSINOPHILS % (AUTO) 2 % (0-10); LYMPHOCYTES # (AUTO) 1.6 X 10^3 (1.0-4.0); LYMPHOCYTES % (AUTO) 16 % (12-44); MEAN CORPUSCULAR HEMOGLOBIN 29 PG (25-34); MEAN CORPUSCULAR HGB CONC 34 G/DL (32-36); MEAN CORPUSCULAR VOLUME 85 FL (80-99); MEAN PLATELET VOLUME 10.5 FL (7.4-10.4); MONOCYTES # (AUTO) 0.7 X 10^3 (0.0-1.0); MONOCYTES % (AUTO) 6 % (0-12); NEUTROPHILS # (AUTO) 7.7 X 10^3 (1.8-7.8); NEUTROPHILS % (AUTO) 76 % (42-75); PLATELET COUNT 204 10^3/uL (130-400); RED BLOOD COUNT 5.47 10^6/uL (4.35-5.85); RED CELL DISTRIBUTION WIDTH 13.8 % (10.0-14.5); WHITE BLOOD COUNT 10.2 10^3/uL (4.3-11.0)
[2016-09-21] MEDS ORDERED: ONDANSETRON 4 MG/2 ML (SDV) Z0FRAN IVP ONE ×2 (10:00)
[2016-09-21 10:10] LABS: ALANINE AMINOTRANSFERASE 64 U/L (0-55); ALBUMIN 4.6 G/DL (3.2-4.5); ANION GAP 10 MMOL/L (5-14); ASPARTATE AMINO TRANSFERASE 53 U/L (5-34); BILIRUBIN,TOTAL 0.8 MG/DL (0.1-1.0); BLOOD UREA NITROGEN 15 MG/DL (7-18); BUN/CREATININE RATIO 10; CALCIUM 9.5 MG/DL (8.5-10.1); CARBON DIOXIDE 25 MMOL/L (21-32); CHLORIDE 105 MMOL/L (98-107); CREATININE SERUM 1.52 MG/DL (0.60-1.30); GFR ESTIMATED 49; GLUCOSE 106 MG/DL (70-105); MAGNESIUM 1.9 MG/DL (1.8-2.4); POTASSIUM 3.8 MMOL/L (3.6-5.0); SODIUM 140 MMOL/L (135-145); TOTAL PROTEIN 7.9 G/DL (6.4-8.2)
[2016-09-21 10:12] LABS: ALCOHOL < 10 MG/DL (<10)
--- NOTE | 2016-09-21 10:17 | Diagnostic Imaging Report ---
INDICATION: Confusion. Weakness. Lethargy. TECHNIQUE: Routine non contrast-enhanced axial images were obtained from the skull base to the vertex. COMPARISON: None. FINDINGS: The ventricles and cortical sulci are age-appropriate. There is no midline shift or mass-effect. No acute intra-axial hemorrhage is seen. There are no abnormal areas of increased or decreased density to suggest acute hemorrhage or edema. No extra-axial masses or collections are present. The bony calvarium is intact. The visualized paranasal sinuses are unremarkable. The mastoid air cells are clear. IMPRESSION: 1. No acute intracranial abnormality. No CT evidence of mass, acute infarct or intracranial hemorrhage. Dictated by: Dictated on workstation # [id number]
[2016-09-21 10:21] LABS: BILIRUBIN,URINE NEGATIVE (NEGATIVE); KETONES,URINE NEGATIVE (NEGATIVE); LEUKOCYTE ESTERASE ,URINE 3+ (NEGATIVE); NITRITE,URINE NEGATIVE (NEGATIVE); PH,URINE 6 (5-9); PROTEIN,URINE 3+ (NEGATIVE); UROBILINOGEN,URINE NORMAL (NORMAL)
[2016-09-21 10:29] LABS: ABG BASE EXCESS -3.2 MMOL/L (-2.5-2.5); ABG HCO3 21 MMOL/L (23-27); ABG OXYGEN SATURATION 95 % (94-100); ABG PCO2 33 MMHG (35-45); ABG PH 7.42 (7.37-7.43); ABG PO2 70 MMHG (79-93); ABG TCO2 21.4 MMOL/L (21.0-31.0)
[2016-09-21 10:30] LABS: SQUAMOUS EPITHELIAL CELL,UR 0-2 /HPF; WBC,URINE >100 /HPF
[2016-09-21 10:31] LABS: ALLENS TEST YES-POS
[2016-09-21 10:32] LABS: PATIENT TEMP 100.3
--- NOTE | 2016-09-21 10:33 | Diagnostic Imaging Report ---
INDICATION: Confusion. Vomiting. Fever. COMPARISON: 11/11/2015. FINDINGS: Single frontal radiographic view of the chest was obtained and demonstrates low inspiratory volumes with probable bibasilar atelectasis. There is no large effusion or pneumothorax. Cardiac silhouette and pulmonary vasculature are within normal limits. Right-sided internal jugular Port-A-Cath is noted. Bony structures show no gross acute abnormalities. IMPRESSION: 1. Low respiratory volumes with probable bibasilar atelectasis. Dictated by: Dictated on workstation # [id number]
[2016-09-21 10:35] VITALS: BP 122/60
[2016-09-21] MEDS ORDERED: cefTRIAXone INJECTION 1,000 MG in NS (IVPB) 50 ML IV ONE (11:00)
[2016-09-21 12:40] VITALS: BP 132/61
[2016-09-21] MEDS ORDERED: ACETAMINOPHEN 500 MG TAB (TYLENOL) PO PRN (12:45)
[2016-09-21] MEDS ORDERED: CATHETER FLUSH 10 ML SYR IV PRN (12:45)
[2016-09-21] MEDS ORDERED: ONDANSETRON 4 MG/2 ML (SDV) Z0FRAN IV PRN (12:45)
[2016-09-21] MEDS ORDERED: OXYC-465 PO (12:56)
[2016-09-21] MEDS ORDERED: OXYC30TA80 PO (12:56)
[2016-09-21] MEDS ORDERED: VANCOMYCIN 1500 MG/NS 500 ML IVPB IV NR ×2 (13:00)
[2016-09-21] MEDS: D5 1/2 NS 1000 ML IV SOLUTION 1,000 ML IV SCH ×2 (13:06→21:37)
[2016-09-21 16:00] VITALS: BP 116/63
[2016-09-21 18:00] VITALS: BP 110/72
[2016-09-21] MEDS ORDERED: FLU TRIvalent (5 YOA+) 2016-17 (AFLURIA) 0.5 ML IM ONE (18:15)
[2016-09-21 20:00] VITALS: BP 121/70
[2016-09-21] MEDS ORDERED: SERTRALINE 100 MG (ZOLOFT) TAB PO PRN (20:45)
[2016-09-21] MEDS ORDERED: NON-FORMULARY MEDICATION 1 EA EA (Oxycodone HCl 30 MG) PO PRN (20:45)
[2016-09-21] MEDS ORDERED: NON-FORMULARY MEDICATION 1 EA EA (Clonazepam 2 MG) PO PRN (20:45)
[2016-09-21] MEDS: GABAPENTIN 600 MG (NEURONTIN) TAB PO SCH (20:59)
[2016-09-21] MEDS ORDERED: metroNIDAZOLE 500MG/100ML IVPB 0 ML ONE (21:26)
[2016-09-21 22:21] VITALS: BP 130/81
[2016-09-21] MEDS ORDERED: clonazePAM 1 MG (KlonoPIN) TAB PO PRN (23:00)
[2016-09-21] MEDS: oxyCODONE/APAP 10/325MG (PERCOCET 10) TABLET PO PRN (23:25)
[2016-09-22] VITALS: BP 111/67
[2016-09-22] MEDS ORDERED: VANCOMYCIN 1 GM/NS 250 ML IVPB IV SCH ×4 (01:00→13:00)
[2016-09-22] MEDS: D5 1/2 NS 1000 ML IV SOLUTION 1,000 ML IV SCH ×2 (02:05→05:20)
[2016-09-22 04:00] VITALS: BP 100/66
[2016-09-22] MEDS: oxyCODONE/APAP 10/325MG (PERCOCET 10) TABLET PO PRN ×2 (04:28→11:42)
[2016-09-22 05:49] LABS: BASOPHILS % (AUTO) 0 % (0-10); EOSINOPHILS # (AUTO) 0.3 10^3/uL (0.0-0.3); EOSINOPHILS % (AUTO) 5 % (0-10); LYMPHOCYTES # (AUTO) 1.5 X 10^3 (1.0-4.0); LYMPHOCYTES % (AUTO) 26 % (12-44); MEAN CORPUSCULAR HEMOGLOBIN 29 PG (25-34); MEAN CORPUSCULAR HGB CONC 33 G/DL (32-36); MEAN CORPUSCULAR VOLUME 86 FL (80-99); MEAN PLATELET VOLUME 10.8 FL (7.4-10.4); MONOCYTES # (AUTO) 0.5 X 10^3 (0.0-1.0); MONOCYTES % (AUTO) 9 % (0-12); NEUTROPHILS # (AUTO) 3.4 X 10^3 (1.8-7.8); NEUTROPHILS % (AUTO) 61 % (42-75); PLATELET COUNT 150 10^3/uL (130-400); RED CELL DISTRIBUTION WIDTH 13.2 % (10.0-14.5); WHITE BLOOD COUNT 5.7 10^3/uL (4.3-11.0)
[2016-09-22 06:12] LABS: ALANINE AMINOTRANSFERASE 36 U/L (0-55); ALBUMIN 3.2 G/DL (3.2-4.5); ANION GAP 8 MMOL/L (5-14); ASPARTATE AMINO TRANSFERASE 25 U/L (5-34); BILIRUBIN,TOTAL 1.1 MG/DL (0.1-1.0); BLOOD UREA NITROGEN 10 MG/DL (7-18); BUN/CREATININE RATIO 11; CARBON DIOXIDE 23 MMOL/L (21-32); CHLORIDE 106 MMOL/L (98-107); CREATININE SERUM 0.92 MG/DL (0.60-1.30); GFR ESTIMATED > 60; GLUCOSE 105 MG/DL (70-105); POTASSIUM 3.4 MMOL/L (3.6-5.0); SODIUM 137 MMOL/L (135-145); TOTAL PROTEIN 5.4 G/DL (6.4-8.2)
[2016-09-22 08:42] VITALS: BP 101/58
[2016-09-22] MEDS ORDERED: cefTRIAXone INJECTION 1,000 MG in NS (IVPB) 50 ML IV SCH (09:00)
[2016-09-22] MEDS: GABAPENTIN 600 MG (NEURONTIN) TAB PO SCH (09:06)
[2016-09-22] MEDS ORDERED: KCL 20 MEQ TAB (K-DUR) PO NR (09:15)
[2016-09-22 09:30] VITALS: BP 102/66
--- NOTE | 2016-09-22 10:53 | Short Stay Summary-Hospitalist ---
HPI History of Present Illness: HPI/Chief Complaint CC: Altered Mental Status HPI: This is a 51yoWM pt of Leonardo Santacruz at [facility] that was wheeled over from [facility] with weak pulse and altered mental status. Pt was very lethargic and confused upon arrival. Pt has long-term narcotic user for chronic abdominal pain and was overmedicated. O2 sats were 86%, but were elevated to 90% on 4L. Pt did not meet septic criteria upon admission. Pt has hx of HTN, has colorectal CA and had obstruction in ureter, is prone to UTIs and has one currently. WBC 10.2 on admission and febrile at 100.3. Chart Review: No fever since admission of 100.3 WBC 5.7 Hgb 12 Initial ABG 7.42/33/70 K+ 3.4 Ucx preliminary but reviewed previous Cxs and will empirically place on antibiotic on DC. Patient Interview: Pt confirms that Leonardo Santacruz is PCP. Pt sees Dr. Lora at the [facility]. Pt has an appointment on the November with a new physician since Dr. Lora is leaving. Pt is not receiving chemo currently. Pt states that he wants to eat, but is currently on a clear liquid diet. Pt has regular BMs, but has had some complications since previous surgery. Pt has ileostomy. Physical exam stable. Pt states that he has significant stomach pain. Pt states that he uses a walker to ambulate at home. Pt lives with his at home and receives assistance from daughter. Dr. Keys discusses DC plans for today with antibiotic. Pts will be able to pick him up. Pt uses [facility]. Scribed by Jaxon Underwood under the direct supervision of Dr. Keys. Source: patient Exam Limitations: no limitations Date Seen 09/22/16 Attending Physician Cammie Keys DO PCP Koko Walker MD Referring Physician Date of Admission Sep 21, 2016 at 10:50 Home Medications & Allergies Home Medications Reviewed patient Home Medication Reconciliation Form Allergies Coded Allergies: morphine (Verified Allergy, Intermediate, 02/21/13) codeine (Unverified Adverse Reaction, Unknown, NAUSEA, 03/20/14) Past Lshehoo-[id number]-Xywojb Hx Patient Social History Marrital Status: Employed/Student: unemployed Alcohol Use: Denies Use Recreational Drug Use: No Smoking Status: Never a Smoker Physical Abuse Screen: No Sexual Abuse: No Recent Foreign Travel: No Contact w/other who traveled: No Recent Hopitalizations: No Recent Infectious Disease Expo: No Immunizations Up To Date Tetanus Booster (TDap): Unknown Seasonal Allergies Seasonal Allergies: No Surgeries HX Surgeries: Yes (COMPLETE CYSTECTOMY AND LEFT SIDED UROSTOMY; RECTAL TUMOR RESECTION WITH ILEOSTOMY WITH REVERSAL; URETERAL STENTS; PORT RIGHT CHEST; LEFT HAND SURGERY) Surgeries: Abdominal, Bladder Surgery, Bowel Surgery, Cystectomy, Orthopedic, Rectal, Renal, Vascular Surgery Respiratory Hx Respiratory Disorders: No Cardiovascular Hx Cardiovascular Disorders: Yes (PT SELF DC'D BP MEDICATIONS) Cardiac Disorders: Hypertension Neurological Hx Neurological Disorders: Yes Neurological Disorders: Headaches /Migraines Reproductive System Hx Reproductive Disorders: No Sexually Transmitted Disease: No HIV/AIDS: No Genitourinary Hx Genitourinary Disorders: Yes (HYDRONEPHROSIS-S/P LEFT URETERAL STENT AND NOW LEFT UROSTOMY; E.D. ) Genitourinary Disorders: Neurogenic Bladder, UTI-Chronic Gastrointestinal Hx Gastrointestinal Disorders: Yes (GASTROPARESIS; MULTITUDE OF VISITS FOR NAUSEA/VOMITING/DIARRHEA-GI COMPLAINTS, CHRONIC ABDOMINAL AND GROIN PAIN-- SUSPECTED NARCOTIC BOWEL; GASTRITIS; COLORECTAL CANCER ) Gastrointestinal Disorders: Gastroesophageal Reflux, Gastrointestinal Bleed, Chronic Diarrhea, C-Diff, Hiatal Hernia Musculoskeletal Hx Musculoskeletal Disorders: No Endocrine Hx Endocrine Disorders: No HEENT HX ENT Disorders: Yes (WEARS GLASSES) Loss of Vision: Denies Hearing Impairment: Denies Cancer Hx Cancer: Yes (RECTAL CANCER DX 11/2012--S/P SURGERY, CHEMO AND RADIATION) Cancer: Rectal Psychosocial Hx Psychiatric Problems: Yes Behavioral Health Disorders: Anxiety, Depression Integumentary HX Skin/Integumentary Disorder: No Blood Transfusions Hx Blood Disorders: No Adverse Reaction to a Blood Tr: No Family Medical History Family Hx: Cataract 03 FATHER, Onset:Unknown Chest pain 03 FATHER, Onset:50's - 60 Family history: Allergy 03 MOTHER Family history: Arthritis 03 FATHER 03 MOTHER Family history: Asthma 03 MOTHER Family history: Cardiovascular disease 03 FATHER Family history: Diabetes mellitus 03 FATHER 03 MOTHER Family history: Hypertension 03 FATHER 03 MOTHER Headache 03 FATHER 03 MOTHER Heart disease 03 FATHER History of - respiratory disease 03 MOTHER Hypercholesterolemia 03 FATHER 03 MOTHER Kidney disease 03 MOTHER Psychotic disorder 03 MOTHER Visual impairment 03 FATHER 03 MOTHER No Family History of: Abdominal aortic aneurysm Sreedhar's disease Alcoholism Aphasia Cancer Cancer of colon Congenital heart disease Congestive heart failure Cystic fibrosis Dementia Dysphagia Family history: Alzheimer's disease Family history: Breast disease Family history: Coronary thrombosis Family history: Gastrointestinal disease Family history: Glaucoma Family history: Osteoporosis Family history: Thyroid disorder Hearing loss Hereditary disease History of - anemia History of - disorder History of drug abuse Human immunodeficiency virus (HIV) seropositivity Infertile Malignant neoplasm of lung Myocardial infarction Parkinson's disease Prostate cancer Seizure disorder Stroke Tuberculosis Review of Systems Constitutional: see HPI weakness EENTM: no symptoms reported Respiratory: no symptoms reported Cardiovascular: no symptoms reported Gastrointestinal: constipation Genitourinary: decreased output Musculoskeletal: back pain muscle pain Skin: no symptoms reported Psychiatric/Neurological: Depressed Physical Exam Physical Exam Vital Signs Vital Sign - Last 12Hours 09/21/16 09:20 Temp 100.3 Pulse 105 Resp 18 B/P 146/108 Pulse Ox 89 O2 Delivery Room Air O2 Flow Rate 3 Capillary Refill : Less Than 3 Seconds General Appearance: No Apparent Distress WD/WN Chronically ill Eyes: Bilateral Eye Normal Inspection, Bilateral Eye PERRL HEENT: PERRL/EOMI Normal ENT Inspection Pharynx Normal Neck: Full Range of Motion Normal Inspection Non Tender Supple Carotid Bruit Respiratory: Chest Non Tender Lungs Clear Normal Breath Sounds No Accessory Muscle Use No Respiratory Distress Cardiovascular: Regular Rate, Rhythm No Edema No Gallop No JVD No Murmur Normal Peripheral Pulses Gastrointestinal: Normal Bowel Sounds No Organomegaly No Pulsatile Mass Non Tender Soft Other (Urostomy noted) Back: Normal Inspection No CVA Tenderness No Vertebral Tenderness Extremity: Normal Capillary Refill Normal Inspection Normal Range of Motion Non Tender No Calf Tenderness No Pedal Edema Neurologic/Psychiatric: Alert Oriented x3 No Motor/Sensory Deficits Depressed Affect Skin: Normal Color Warm/Dry Lymphatic: No Adenopathy Results Results/Procedures Lab Laboratory Tests 09/21/16 09:30 09/22/16 05:09 Short Stay Diagnosis Discharge Diagnosis-Short Stay Admission Diagnosis Assessment: Altered mental status due to nonpurposeful overmedication with narcotics in addition to UTI Colon cancer with urostomy Neuropathy Chronic pain Final Discharge Diagnosis Assessment: Altered mental status due to nonpurposeful overmedication with narcotics in addition to UTI Colon cancer with urostomy Neuropathy Chronic pain Hypokalemia Chronic constipation Conclusion Plan Plan: Replace K+ PO before discharge PT and OOB Advance diet. DC today and close follow-up with Leonardo Santacruz. Overall patient is doing well and wishes to have discharge orders and will cover empiric with antibiotics comparing prior urine culture results from the past. Clinical Quality Measures DVT/VTE Risk/Contraindication: Risk Factor Score Per Nursin RFS Level Per Nursing on Admit: 2=Moderate CAMMIE KEYS DO Sep 22, 2016 10:53
[2016-09-22] MEDS ORDERED: CIPR-225 PO (10:58)
--- NOTE | 2016-09-22 11:00 | Discharge Instructions ---
Discharge Instructions Discharge Medications New, Converted or Re-Newed RX: Transmitted to Pharmacy New Medications: Ciprofloxacin HCl (Cipro) 500 Mg Tablet 500 MG PO BID #10 TAB Continued Medications: Clonazepam (Clonazepam) 2 Mg Tablet 2 MG PO TID PRN ANXIETY Gabapentin (Gabapentin) 600 Mg Tablet 1200 MG PO TID TAKES 2 (600 MG) TABLETS Oxycodone HCl (Oxycodone HCl) 30 Mg Tablet 30 MG PO BID PRN SEVERE PAIN TAB Oxycodone HCl/Acetaminophen (Oxycodone-Acetaminophen 10-325) 1 Each Tablet 1 TAB PO Q4H PRN MODERATE PAIN TAB Sertraline HCl (Sertraline HCl) 100 Mg Tablet 100 MG PO DAILY LAST FILLED 07/18/16 #30 PRN EMOTIONS Patient Instructions Goal/Follow Up Appt: [facility] as scheduled Activity & Diet Discharge Diet: No Restrictions Activity as Tolerated: Yes ABRIL KEYS DO Sep 22, 2016 11:00
[2016-09-22] MEDS ORDERED: TROUGH ORDER-PHARMACY XX NR (12:00)
[2016-09-22 12:44] VITALS: BP 101/55
[2016-09-22 13:00] VITALS: BP 101/55
== END 2016-09-22 13:00 | disposition home or self-care (01) | DRG 690 ==
LOC: EDUNIT# 09:19 → ER 09:22 → 4TH 10:50 → UNDOADMIN 11:07 → 4TH 11:07
PROVIDERS: ADMIT Internal Medicine; ATTEND Internal Medicine
DX: N39.0 Urinary tract infection, site not specified (principal); T40.2X5A Adverse effect of other opioids, initial encounter; R41.82 Altered mental status, unspecified; C20 Malignant neoplasm of rectum; I10 Essential (primary) hypertension; K21.9 Gastro-esophageal reflux disease without esophagitis; F41.9 Anxiety disorder, unspecified; F32.9 Major depressive disorder, single episode, unspecified; E87.6 Hypokalemia; Z93.6 Other artificial openings of urinary tract status; G89.29 Other chronic pain; K59.09 Other constipation; Z93.2 Ileostomy status
CPT/HCPCS: 36415; 70450; 71010; 80053; 80074; 80306; 80320; 81000; 82805; 82962; 83605; 83735; 84443; 85025; 85610; 85730; 87040; 87077; 87088; 87186; 87804; 93005; 93041; 96365; 96375

== ENCOUNTER 2016-10-06 21:36 | Emergency (ER) | payer MEDICARE, MEDICAID ==
[~2016-10-06] VITALS: Ht 172.7 cm; Wt 90.7 kg
[2016-10-06] MEDS ORDERED: LACTATED RINGERS 1,000 ML IV ONE ×2 (21:49→23:10)
[2016-10-06 21:57] LABS: BASOPHILS % (AUTO) 0 % (0-10); EOSINOPHILS % (AUTO) 0 % (0-10); LYMPHOCYTES # (AUTO) 3.2 X 10^3 (1.0-4.0); LYMPHOCYTES % (AUTO) 25 % (12-44); MEAN CORPUSCULAR HEMOGLOBIN 29 PG (25-34); MEAN CORPUSCULAR HGB CONC 35 G/DL (32-36); MEAN CORPUSCULAR VOLUME 83 FL (80-99); MEAN PLATELET VOLUME 10.4 FL (7.4-10.4); MONOCYTES # (AUTO) 1.2 X 10^3 (0.0-1.0); MONOCYTES % (AUTO) 9 % (0-12); NEUTROPHILS # (AUTO) 8.4 X 10^3 (1.8-7.8); NEUTROPHILS % (AUTO) 65 % (42-75); PLATELET COUNT 453 10^3/uL (130-400); RED BLOOD COUNT 5.91 10^6/uL (4.35-5.85); RED CELL DISTRIBUTION WIDTH 14.2 % (10.0-14.5); WHITE BLOOD COUNT 12.8 10^3/uL (4.3-11.0)
[2016-10-06] MEDS ORDERED: ONDANSETRON 4 MG/2 ML (SDV) Z0FRAN IVP ONE (22:00)
--- NOTE | 2016-10-06 22:06 | ED GI ---
General Chief Complaint: Abdominal/GI Problems Stated Complaint: DIZZINESS HEADACHE ABD PAIN VOMITING Nursing Triage Note: PT WEAKNESS, THINKS PATIENT MAY HAVE C DIFF. Sepsis Screen: No Definite Risk Source of Information: Patient, Old Records, Spouse History of Present Illness Time Seen By Provider: 21:45 Initial Comments PT ARRIVES VIA POV FROM HOME C/O NAUSEA/VOMITING/DIARRHEA X 3-4 DAYS HAS VOMITED X 2 TODAY--STATES "I ONLY VOMIT IF I EAT OR DRINK" STATES HE HAS HAD AT LEAST 20 EPISODES OF DIARRHEA TODAY C/O GROIN AND RECTAL PAIN THIS IS A CHRONIC PROBLEM FOR MANY YEARS, ALONG WITH CHRONIC ABDOMINAL PAIN AND GROIN AND RECTAL PAIN . PT HAS HAD A MULTITUDE OF VISITS FOR THIS PROBLEM--10 VISITS IN LAST YEAR, ALL FOR SAME. THIS IS NOT ANY DIFFERENT FROM CHRONIC ISSUES--HX OF GASTROPARESIS, SUSPECTED NARCOTIC BOWEL, CHRONIC N/V/D/ABDOMINAL PAIN/GROIN/ RECTAL PAIN--HAS HISTORY OF RECTAL CANCER PT ADMITTED 09/21-09/22 FOR SAME AND WAS FOUND TO HAVE UTI WITH ALTERED MENTAL STATUS DUE TO IT AND EXCESSIVE MEDICATION USE. PT HAS HAD C. DIFFICILE, AND THINKS HE MIGHT HAVE IT AGAIN PT HAS HAD SUBJECTIVE FEVER PT STATES HE "CAN'T KEEP ANYTHING DOWN" YET WENT TO [facility] [place] TODAY AND ATE [facility] [place] 4-5 HOURS AGO AND SYMPTOMS WORSENED. PT HAS NOT BEEN ABLE TO KEEP HIS PAIN MEDICATIONS DOWN THE LAST COUPLE OF DAYS C/O GENERALIZED WEAKNESS PT HAS UROSTOMY AND STATES HE HAS HAD DECREASED URINE OUTPUT TODAY PT WAS SUPPOSED TO HAVE HAD A FOLLOW UP APPOINTMENT WITH HIS DR TODAY, BUT DID NOT GO--GIVES NO REASON WHY HE DID NOT GO, BUT STATES HE DID GO TO DR. CALI'S OFFICE TODAY, BUT DID NOT SEE HER HE DID NOT HAVE AN APPOINTMENT. STATES "MY MIND'S ALL OVER THE PLACE" PCP: NISHANT Allergies and Home Medications Allergies Coded Allergies: morphine (Verified Allergy, Intermediate, 02/21/13) codeine (Unverified Adverse Reaction, Unknown, NAUSEA, 03/20/14) Home Medications Ciprofloxacin HCl 500 Mg Tablet, 500 MG PO BID, #10 Prescribed by: ABRIL KEYS on 09/22/16 1058 Ciprofloxacin HCl 500 Mg Tablet, 500 MG PO BID, #20 Prescribed by: JOSE ANTONIO WILEY on 10/06/16 8195 Clonazepam 2 Mg Tablet, 2 MG PO TID PRN for ANXIETY, (Reported) Gabapentin 600 Mg Tablet, 1,200 MG PO TID, (Reported) TAKES 2 (600 MG) TABLETS Hyoscyamine Sulfate 0.125 Mg Tab.subl, 1-2 TAB SL Q4H, #20 Prescribed by: JOSE ANTONIO WILEY on 10/06/162354 Lactobacillus Acidophilus 1 Each Capsule, 2 EACH PO QID, #80 Prescribed by: JOSE ANTONIO WILEY on 10/06/162354 Metronidazole 500 Mg Tablet, 500 MG PO QID, #40 Prescribed by: JOSE ANTONIO WILEY on 10/06/162354 Ondansetron 4 Mg Tab.rapdis, 4-8 MG PO Q4H, #20 Prescribed by: JOSE ANTONIO WILEY on 10/06/162354 Oxycodone HCl 30 Mg Tablet, 30 MG PO BID PRN for SEVERE PAIN, (Reported) Oxycodone HCl/Acetaminophen 1 Each Tablet, 1 TAB PO Q4H PRN for MODERATE PAIN, ( Reported) Promethazine HCl 25 Mg Supp.rect, 25 MG RC Q4H, #10 Prescribed by: JOSE ANTONIO WILEY on 10/06/162354 Sertraline HCl 100 Mg Tablet, 100 MG PO DAILY PRN for EMOTIONS, (Reported) LAST FILLED 07/18/16 #30 Review of Systems Constitutional: No fever, malaise, weakness EENTM: No Symptoms Reported Respiratory: No Symptoms Reported Cardiovascular: No Symptoms Reported Gastrointestinal: See HPI, Abdominal Pain, Diarrhea, Nausea, Poor Appetite, Poor Fluid Intake, Denies Rectal Bleeding, Vomiting Genitourinary: See HPI Musculoskeletal: no symptoms reported Skin: no symptoms reported Psychiatric/Neurological: Anxiety Endocrine: No Symptoms Reported Hematologic/Lymphatic: No Symptoms Reported Past Nwrczml-Uwgvvb-Fjtjhn Hx Patient Social History Alcohol Use: Denies Use Recreational Drug Use: No Smoking Status: Never a Smoker Recent Foreign Travel: No Contact w/Someone Who Travel: No Recent Infectious Disease Expo: No Recent Hopitalizations: No Immunizations Up To Date Tetanus Booster (TDap): Unknown PED Vaccines UTD: No Seasonal Allergies Seasonal Allergies: No Surgeries HX Surgeries: Yes (COMPLETE CYSTECTOMY; LEFT SIDED UROSTOMY; RECTAL TUMOR RESECTION WITH ILEOSTOMY AND LATER REVERSAL; URETERAL STENTS; PORT RIGHT CHEST; LEFT HAND SURGERY) Surgeries: Abdominal, Bladder Surgery, Bowel Surgery, Cystectomy, Orthopedic, Rectal, Renal, Vascular Surgery Respiratory Hx Respiratory Disorders: No Cardiovascular Hx Cardiac Disorders: Yes (PT SELF DC'D BP MEDICATIONS) Cardiac Disorders: Hypertension Neurological Hx Neurological Disorders: Yes Neurological Disorders: Headaches /Migraines Reproductive System Hx Reproductive Disorders: No Sexually Transmitted Disease: No HIV/AIDS: No Genitourinary Hx Genitourinary Disorders: Yes (HYDRONEPHROSIS-S/P LEFT URETERAL STENT AND NOW LEFT UROSTOMY; E.D. ; LEFT UROSTOMY) Genitourinary Disorders: Neurogenic Bladder, UTI-Chronic Gastrointestinal Hx Gastrointestinal Disorders: Yes (GASTROPARESIS; CHRONIC NAUSEA/VOMITING/ DIARRHEA/ABDOMINAL PAIN/GROIN PAIN/ RECTAL PAIN--SUSPECTED NARCOTIC BOWEL; GASTRITIS; COLORECTAL CANCER--S/P RESECTION; CHRONIC INCONTINENCE OF STOOL) Gastrointestinal Disorders: Gastroesophageal Reflux, Gastrointestinal Bleed, Chronic Diarrhea, C-Diff, Hiatal Hernia Musculoskeletal Hx Musculoskeletal Disorders: No Endocrine Hx Endocrine Disorders: No HEENT HX ENT Disorders: Yes (WEARS GLASSES) Loss of Vision: Denies Hearing Impairment: Denies Cancer Hx Cancer: Yes (RECTAL CANCER DX 11/2012--S/P SURGERY, CHEMO AND RADIATION) Cancer: Rectal Psychosocial Hx Psychiatric Problems: Yes Behavioral Health Disorders: Anxiety, Depression Integumentary HX Skin/Integumentary Disorder: No Blood Transfusions Hx Blood Disorders: No Adverse Reaction to a Blood Tr: No Family Medical History Family Medial History: Cataract 03 FATHER, Onset:Unknown Chest pain 03 FATHER, Onset:50's - 60 Family history: Allergy 03 MOTHER Family history: Arthritis 03 FATHER 03 MOTHER Family history: Asthma 03 MOTHER Family history: Cardiovascular disease 03 FATHER Family history: Diabetes mellitus 03 FATHER 03 MOTHER Family history: Hypertension 03 FATHER 03 MOTHER Headache 03 FATHER 03 MOTHER Heart disease 03 FATHER History of - respiratory disease 03 MOTHER Hypercholesterolemia 03 FATHER 03 MOTHER Kidney disease 03 MOTHER Psychotic disorder 03 MOTHER Visual impairment 03 FATHER 03 MOTHER No Family History of: Abdominal aortic aneurysm Raphine's disease Alcoholism Aphasia Cancer Cancer of colon Congenital heart disease Congestive heart failure Cystic fibrosis Dementia Dysphagia Family history: Alzheimer's disease Family history: Breast disease Family history: Coronary thrombosis Family history: Gastrointestinal disease Family history: Glaucoma Family history: Osteoporosis Family history: Thyroid disorder Hearing loss Hereditary disease History of - anemia History of - disorder History of drug abuse Human immunodeficiency virus (HIV) seropositivity Infertile Malignant neoplasm of lung Myocardial infarction Parkinson's disease Prostate cancer Seizure disorder Stroke Tuberculosis Physical Exam Vital Signs VS - Last 72 Hours, by Label 10/06/16 10/06/16 21:45 22:46 Temp 99.3 Pulse 102 90 Resp 20 20 B/P (MAP) 158/110 Pulse Ox 96 100 O2 Delivery Room Air Capillary Refill : Less Than 3 Seconds General Appearance: WD/WN, other (VERY ANXIOUS AND VERY DRAMATIC, WRITHING AND HOLDING ABDOMEN AND MOANING; KEEPS EYES CLOSED) HEENT: other (ORAL MUCOSA DRY) Neck: normal inspection Respiratory: normal breath sounds, no respiratory distress, no accessory muscle use Cardiovascular: regular rate, rhythm, no edema, no JVD, no murmur Gastrointestinal: soft, no organomegaly, abnormal bowel sounds (HYPERACTIVE), No distended, No guarding, No rebound, tenderness (DIFFUSE TENDERNESS), other ( UROSTOMY IN LLQ ) Extremities: normal inspection, no pedal edema, normal capillary refill Back: no CVA tenderness Neurologic/Psychiatric: technical support director II-XII nml as tested, no motor/sensory deficits, alert, oriented x 3 Skin: normal color, warm/dry Progress/Results/Core Measures Results/Orders Lab Results Laboratory Tests Test 10/06/16 21:50 10/06/16 22:20 Range/Units White Blood Count 12.8 H 4.3-11.0 10^3/uL Red Blood Count 5.91 H 4.35-5.85 10^6/uL Hemoglobin 17.2 13.3-17.7 G/DL Hematocrit 49 40-54 % Mean Corpuscular Volume 83 80-99 FL Mean Corpuscular Hemoglobin 29 25-34 PG Mean Corpuscular Hemoglobin Concent 35 32-36 G/DL Red Cell Distribution Width 14.2 10.0-14.5 % Platelet Count 453 H 130-400 10^3/uL Mean Platelet Volume 10.4 7.4-10.4 FL Neutrophils (%) (Auto) 65 42-75 % Lymphocytes (%) (Auto) 25 12-44 % Monocytes (%) (Auto) 9 0-12 % Eosinophils (%) (Auto) 0 0-10 % Basophils (%) (Auto) 0 0-10 % Neutrophils # (Auto) 8.4 H 1.8-7.8 X 10^3 Lymphocytes # (Auto) 3.2 1.0-4.0 X 10^3 Monocytes # (Auto) 1.2 H 0.0-1.0 X 10^3 Eosinophils # (Auto) 0.0 0.0-0.3 10^3/uL Basophils # (Auto) 0.0 0.0-0.1 10^3/uL Sodium Level 142 135-145 MMOL/L Potassium Level 3.6 3.6-5.0 MMOL/L Chloride Level 111 H 98-107 MMOL/L Carbon Dioxide Level 19 L 21-32 MMOL/L Anion Gap 12 5-14 MMOL/L Blood Urea Nitrogen 14 7-18 MG/DL Creatinine 1.42 H 0.60-1.30 MG/DL Estimat Glomerular Filtration Rate 53 BUN/Creatinine Ratio 10 Glucose Level 96 70-105 MG/DL Calcium Level 9.3 8.5-10.1 MG/DL Total Bilirubin 1.0 0.1-1.0 MG/DL Aspartate Amino Transf (AST/SGOT) 37 H 5-34 U/L Alanine Aminotransferase (ALT/SGPT) 52 0-55 U/L Alkaline Phosphatase 75 40-136 U/L Total Protein 7.7 6.4-8.2 G/DL Albumin 4.7 H 3.2-4.5 G/DL Amylase Level 95 25-125 U/L Lipase 41 8-78 U/L Urine Color YELLOW Urine Clarity SLIGHTLY CLOUDY Urine pH 6.5 5-9 Urine Specific Tie Siding 1.015 L 1.016-1.022 Urine Protein 2+ H NEGATIVE Urine Glucose (UA) NEGATIVE NEGATIVE Urine Ketones NEGATIVE NEGATIVE Urine Nitrite POSITIVE H NEGATIVE Urine Bilirubin NEGATIVE NEGATIVE Urine Urobilinogen NORMAL NORMAL MG/DL Urine Leukocyte Esterase 3+ H NEGATIVE Urine RBC (Auto) 2+ H NEGATIVE Urine RBC 2-5 H /HPF Urine WBC 50-100 H /HPF Urine Squamous Epithelial Cells 25-50 H /HPF Urine Crystals NONE /LPF Urine Bacteria MODERATE H /HPF Urine Casts NONE /LPF Urine Mucus NEGATIVE /LPF Urine Culture Indicated YES Urine Opiates Screen NEGATIVE NEGATIVE Urine Oxycodone Screen NEGATIVE NEGATIVE Urine Methadone Screen NEGATIVE NEGATIVE Urine Propoxyphene Screen NEGATIVE NEGATIVE Urine Barbiturates Screen NEGATIVE NEGATIVE Ur Tricyclic Antidepressants Screen NEGATIVE NEGATIVE Urine Phencyclidine Screen NEGATIVE NEGATIVE Urine Amphetamines Screen NEGATIVE NEGATIVE Urine Methamphetamines Screen NEGATIVE NEGATIVE Urine Benzodiazepines Screen POSITIVE H NEGATIVE Urine Cocaine Screen NEGATIVE NEGATIVE Urine Cannabinoids Screen NEGATIVE NEGATIVE My Orders Orders - JOSE ANTONIO WILEY DO Saline Lock/Iv-Start (10/06/16 21:49) Amylase (10/06/16 21:49) Cbc With Automated Diff (10/06/16 21:49) Comprehensive Metabolic Panel (10/06/16 21:49) Drug Screen Stat (Urine) (10/06/16 21:49) Lipase (10/06/16 21:49) Ua Culture If Indicated (10/06/16 21:49) Ondansetron Injection (Zofran Injectio (10/06/16 22:00) Saline Lock/Iv-Start (10/06/16 21:49) Lactated Ringers (Lr 1000 Ml Iv Solution (10/06/16 21:49) Abdomen, Flat & Upright/Decub (10/06/16 22:32) Stool Culture (10/06/16 22:32) Fecal Wbc (10/06/16 22:32) C Difficile Ag + Toxin A/B. (10/06/16 22:32) Urine Culture (10/06/16 22:20) Levofloxacin 500 Mg/100 Ml Iv (Levaquin (10/06/16 23:15) Metoclopramide Injection (Reglan Injecti (10/06/16 23:15) Diphenhydramine Injection (Benadryl Inje (10/06/16 23:15) Hyoscyamine Sl Tablet (Levsin Sl Tablet) (10/06/16 23:15) Saline Lock/Iv-Start (10/06/16 23:10) Lactated Ringers (Lr 1000 Ml Iv Solution (10/06/16 23:10) Rx-Ondansetron Po (Rx-Zofran Po) (10/07/16 00:09) Rx-Promethazine Hcl (Rx-Phenergan Supp) (10/07/16 00:09) Medications Given in ED Current Medications Medications Dose Ordered Sig/Kenny Route Start Time Stop Time Status Last Admin Dose Admin Diphenhydramine HCl 25 mg ONCE ONCE IVP 10/06/16 23:15 10/06/16 23:16 DC 10/06/16 23:27 25 MG Hyoscyamine Sulfate 0.25 mg ONCE ONCE PO 10/06/16 23:15 10/06/16 23:16 DC 10/06/16 23:27 0.25 MG Lactated Ringer's 1,000 ml @ 0 mls/hr Q0M ONCE IV 10/06/16 21:49 10/06/16 21:50 DC 10/06/16 22:04 0 MLS/HR Lactated Ringer's 1,000 ml @ 0 mls/hr Q0M ONCE IV 10/06/16 23:10 10/06/16 23:11 UNV 10/06/16 23:32 0 MLS/HR Levofloxacin/ Dextrose 100 ml @ 100 mls/hr ONCE ONCE IV 10/06/16 23:15 10/07/16 00:14 DC 10/06/16 23:27 100 MLS/HR Metoclopramide HCl 10 mg ONCE ONCE IVP 10/06/16 23:15 10/06/16 23:16 DC 10/06/16 23:27 10 MG Ondansetron HCl 8 mg ONCE ONCE IVP 10/06/16 22:00 10/06/16 22:01 DC 10/06/16 22:04 8 MG Vital Signs/I&O Vital Sign - Last 12Hours 10/06/16 10/06/16 21:45 22:46 Temp 99.3 Pulse 102 90 Resp 20 20 B/P (MAP) 158/110 Pulse Ox 96 100 O2 Delivery Room Air Blood Pressure Mean: 126 Progress Note : Progress Note PT HAS HAD 14 ABDOMEN/PELVIS CT SCANS AT THIS FACILITY SINCE 2012--WILL HOLD OFF ON ORDERING ANOTHER ONE AT THIS TIME THIS IS NOTHING NEW FOR PT, AND ABDOMEN IS SOFT AND PT IS HAVING DIARRHEAL STOOL IN ER VOMITED X 1 ON ARRIVAL--NAUSEA RESOLVED WITH ZOFRAN AND PT NO LONGER MOANING AND WRITHING DIARRHEA X 1 IN ER--SENT SPECIMEN TO LAB FOR STOOL STUDIES ABDOMINAL PAIN EASED AT DISMISSAL PT KEPT DOWN SIPS OF WATER PRIOR TO DISMISSAL PT SLEPT / RESTED QUIETLY FOR REMAINDER OF ER STAY Diagnostic Imaging Comments ABDOMINAL XRAYS--NON-SPECIFIC COLON GAS. PENDING RADIOLOGIST REVIEW Reviewed: Reviewed by Me Departure Impression Impression: Primary Impression: EXACERBATON OF CHRONIC NAUSEA/VOMITING/DIARRHEA AND ABDOMINAL PAIN Additional Impressions: SUSPECTED NARCOTIC BOWEL Chronic UTI Chronic narcotic dependence Mild dehydration Disposition: 01 HOME, SELF-CARE Condition: Improved Departure-Patient Inst. Referrals: [facility] (PCP/Family) Primary Care Physician Patient Instructions: CHRONIC PAIN, Diarrhea in Adolescents and Adults, Nausea and Vomiting, Adult (DC), Acute Abdomen (Belly Pain), Adult (DC) Add. Discharge Instructions: CLEAR LIQUIDS--WATER, BROTH, JELLO, GATORADE BRATS DIET--BANANAS, RICE, APPLESAUCE, TOAST, SALTINES TAKE YOUR REGULAR MEDICATIONS PRESCRIBED FOLLOW UP WITH YOUR DR IN 2 DAYS FOR FURTHER CARE All discharge instructions reviewed with patient and/or family. Voiced understanding. Scripts Lactobacillus Acidophilus (Acidophilus) 1 Each Capsule 2 EACH PO QID, #80 CAP Prov: JOSE ANTONIO WILEY DO 10/06/16 Metronidazole (Flagyl) 500 Mg Tablet 500 MG PO QID for FOR INFECTION, #40 TAB Prov: JOSE ANTONIO WILEY DO 10/06/16 Ciprofloxacin HCl (Cipro) 500 Mg Tablet 500 MG PO BID, #20 TAB Prov: JOSE ANTONIO WILEY DO 10/06/16 Promethazine HCl (Phenergan) 25 Mg Supp.rect 25 MG RC Q4H for Nausea/Vomiting, #10 SUPP.RECT Prov: JOSE ANTONIO WILEY DO 10/06/16 Hyoscyamine Sulfate (Levsin-Sl) 0.125 Mg Tab.subl 1-2 TAB SL Q4H for Abdominal Pain, #20 TAB Prov: JOSE ANTONIO WILEY DO 10/06/16 Ondansetron (Zofran Odt) 4 Mg Tab.rapdis 4-8 MG PO Q4H for Nausea/Vomiting, #20 TAB Prov: JOSE ANTONIO WILEY DO 10/06/16 JOSE ANTONIO WILEY DO Oct 06, 2016 22:05
[2016-10-06 22:27] LABS: ALBUMIN 4.7 G/DL (3.2-4.5); CALCIUM 9.3 MG/DL (8.5-10.1); CREATININE SERUM 1.42 MG/DL (0.60-1.30); POTASSIUM 3.6 MMOL/L (3.6-5.0); TOTAL PROTEIN 7.7 G/DL (6.4-8.2)
[2016-10-06 22:30] LABS: BILIRUBIN,URINE NEGATIVE (NEGATIVE); KETONES,URINE NEGATIVE (NEGATIVE); LEUKOCYTE ESTERASE ,URINE 3+ (NEGATIVE); NITRITE,URINE POSITIVE (NEGATIVE); PH,URINE 6.5 (5-9); PROTEIN,URINE 2+ (NEGATIVE); UROBILINOGEN,URINE NORMAL (NORMAL)
[2016-10-06 22:39] LABS: SQUAMOUS EPITHELIAL CELL,UR 25-50 /HPF; WBC,URINE 50-100 /HPF
[2016-10-06] MEDS ORDERED: METOCLOPRAMIDE INJ 10 MG/2 ML (REGLAN) IVP ONE (23:15)
[2016-10-06] MEDS ORDERED: diphenhydrAMINE 50 MG/ML INJ (BENADRYL) IVP ONE (23:15)
[2016-10-06] MEDS ORDERED: LEVOFLOXACIN 500 MG/100 ML IV 100 ML IV ONE (23:15)
[2016-10-06] MEDS ORDERED: HYOSCYAMINE 0.125 MG (LEVSIN) TAB PO ONE (23:15)
[2016-10-06] MEDS ORDERED: CIPR-225 PO (23:55)
[2016-10-06] MEDS ORDERED: PROM25SU43 RC (23:55)
[2016-10-06] MEDS ORDERED: ONDA4TAB8 PO (23:55)
[2016-10-06] MEDS ORDERED: HYOS0.1283 SL (23:55)
[2016-10-06] MEDS ORDERED: LACT1CAP8 PO (23:55)
[2016-10-06] MEDS ORDERED: METR500T PO (23:55)
[2016-10-07] MEDS ORDERED: RX-ONDANSETRON 4 MG ODT (ZOFRAN) PPK #4 PO STA (00:09)
[2016-10-07] MEDS ORDERED: RX-PHENERGAN 25 MG SUPP PPK#3 PR STA (00:09)
[2016-10-07] MEDS ORDERED: RX-ONDANSETRON 4 MG ODT (ZOFRAN) PPK #4 ONE (00:33)
[2016-10-07] MEDS ORDERED: RX-PHENERGAN 25 MG SUPP PPK#3 ONE (00:33)
[2016-10-07 00:45] VITALS: BP 150/90
--- NOTE | 2016-10-07 07:21 | Diagnostic Imaging Report ---
Upright and supine views of the abdomen. INDICATION: Severe abdominal pain. FINDINGS: There is no pneumoperitoneum. There are segments of the colon with mild dilatation with mostly gas content and air-fluid levels seen in the right colon. Air is seen near the rectum. IMPRESSION: No pneumoperitoneum. There is nonspecific gaseous distention of the colon. Correlate clinically and with followup exams as needed. Dictated by: Dictated on workstation # [id number]
--- OUTSIDE RECORDS SUMMARY | 2016-10-09 10:56 | XMS REPORT | Continuity of Care Document ---
Author Author [facility] Organization [facility] Address Unknown Phone Unavailable Care Team Providers Care Casting Machine Operator Name Role Phone Gildardo Walker PCP [phone] Source Comments Some departments are not documenting in the electronic medical record. If you do not see the information that you expected, contact Release of Information in the Health Information Management department at [phone] for further assistance in locating additional records.[facility] Active Allergies and Adverse Reactions Allergen [...] retention 02/10/2014 Rectal cancer (HCC) 02/10/2014 Overview: [id number] S/p brain-adjuvant chemo/XRT S/p LAR with diverting [...] Exam Pertussis Vaccine 1977 Tetanus Vaccine 1983 Colorectal Cancer 2016 Screening Influenza Vaccine 03/17/2017 Results from Last 3 Months Not on file
--- OUTSIDE RECORDS SUMMARY | 2016-10-09 10:56 | XMS REPORT ---
Author Author LINDA BENTLEY [facility] Address [address] [place] [address] Care Team Providers Care Board Setter Name Role Phone LINDA BENTLEY Unavailable PROBLEMS Type Condition ICD9-CM Code [id number] Code Onset Dates Condition Status SNOMED Code Problem 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 006815020 Problem Hydronephrosis with ureteral stricture, not elsewhere classified N13.1 Active 77502309 Problem Hypertension, benign I10 Active 03745247 Problem Chronic fatigue, unspecified R53.82 Active 253042741 Problem Primary insomnia F51.01 Active 100913727 Problem Abdominal pain, left lower quadrant R10.32 Active 884085202 Problem Mood disorder F39 Active 36254430 ALLERGIES Unknown Allergies SOCIAL HISTORY No smoking Hx information available PLAN OF CARE VITAL SIGNS MEDICATIONS Unknown Medications RESULTS No Results PROCEDURES No Known procedures IMMUNIZATIONS No Known Immunizations
--- OUTSIDE RECORDS SUMMARY | 2016-10-09 10:56 | XMS REPORT ---
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 392662752 Problem Hydronephrosis with ureteral stricture, not elsewhere classified N13.1 Active 55531590 Problem Hypertension, benign I10 Active 93937450 Problem Chronic fatigue, unspecified R53.82 Active 944661368 Problem Primary insomnia F51.01 Active 206823932 Problem Abdominal pain, left lower quadrant R10.32 Active 945133107 Problem Mood disorder F39 Active 15297701 ALLERGIES Unknown Allergies SOCIAL HISTORY No smoking Hx information available PLAN OF CARE VITAL SIGNS MEDICATIONS Unknown Medications RESULTS No Results PROCEDURES No Known procedures IMMUNIZATIONS No Known Immunizations
--- OUTSIDE RECORDS SUMMARY | 2016-10-09 10:56 | XMS REPORT ---
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
--- OUTSIDE RECORDS SUMMARY | 2016-10-09 11:00 | XMS REPORT ---
Author Author LINDA BENTLEY [facility] Address [address] [place] [address] Care Team Providers Care Reinsurance Accountant Name Role Phone LINDA BENTLEY Unavailable PROBLEMS Type Condition ICD9-CM Code [id number] Code Onset Dates Condition Status SNOMED Code Problem 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 364085787 Problem Hydronephrosis with ureteral stricture, not elsewhere classified N13.1 Active 62472459 Problem Hypertension, benign I10 Active 65941818 Problem Chronic fatigue, unspecified R53.82 Active 148778527 Problem Primary insomnia F51.01 Active 092083366 Problem Abdominal pain, left lower quadrant R10.32 Active 711257415 Problem Mood disorder F39 Active 55399129 ALLERGIES Unknown Allergies SOCIAL HISTORY No smoking Hx information available PLAN OF CARE VITAL SIGNS MEDICATIONS Unknown Medications RESULTS No Results PROCEDURES No Known procedures IMMUNIZATIONS No Known Immunizations
--- OUTSIDE RECORDS SUMMARY | 2016-10-09 11:00 | XMS REPORT | Continuity of Care Document ---
Author Author Formerly [facility] Address Unknown Phone Unavailable Allergies Active Description Code Type Severity Reaction Onset Reported/Identified Relationship to Patient Clinical Status Yes trazodone 50 mg tablet Drug Allergy 10/17/2012 Yes trazodone 50 mg tablet Drug Allergy N/A N/A 10/17/2012 Yes morphine [id number] Drug Allergy Moderate N/A 02/21/2013 Yes codeine [id number] Drug Allergy Unknown NAUSEA 03/20/2014 Medications Problems Date Dx Coded Attending Type Code Diagnosis Diagnosed By 06/15/1108 VIRAJ SOLIS, ROXI Oseguera Ot C20 MALIGNANT NEOPLASM OF RECTUM 06/15/1108 VIRAJ SOLIS, ROXI Oseguera Ot D50.9 IRON DEFICIENCY ANEMIA, UNSPECIFIED 06/15/1108 VIRAJ SOLIS, ROXI Oseguera Ot F33.9 MAJOR DEPRESSIVE DISORDER, RECURRENT, UN 06/15/1108 VIRAJ SOLIS, ROXI Oseguera Ot G47.00 INSOMNIA, UNSPECIFIED 06/15/1108 VIRAJ SOLIS, ROXI Oseguera Ot N39.490 OVERFLOW INCONTINENCE 06/15/1108 VIRAJ SOLIS, ROXI Oseguera Ot Z79.899 OTHER [facility] (CURRENT) DRUG THERAPY 06/15/1108 VIRAJ SOLIS, ROXI Oseguera Ot Z92.3 PERSONAL HISTORY OF IRRADIATION 06/17/2011 Ot 729.5 PAIN IN LIMB 09/24/2011 796.2 PREHYPERTENSION 09/24/2011 LINDA BENTLEY APRN 796.2 PREHYPERTENSION 09/24/2011 796.2 PREHYPERTENSION 09/24/2011 SANTOS SOLIS, ADOLPH Jon 796.2 PREHYPERTENSION 09/24/2011 LINDA BENTLEY APRN 796.2 PREHYPERTENSION 09/24/2011 LINDA BENTLEY APRN 796.2 PREHYPERTENSION 09/24/2011 796.2 PREHYPERTENSION 09/24/2011 796.2 PREHYPERTENSION 09/24/2011 796.2 PREHYPERTENSION 09/24/2011 796.2 PREHYPERTENSION 09/24/2011 796.2 PREHYPERTENSION 09/24/2011 NIKHIL PITTS DO K 796.2 PREHYPERTENSION 09/24/2011 LINDA BENTLEY APRN T 796.2 PREHYPERTENSION 09/24/2011 RIVER ARCE MD 796.2 PREHYPERTENSION 09/24/2011 ADOLPH GRAHAM MD 796.2 PREHYPERTENSION 09/24/2011 LINDA BENTLEY APRN T 796.2 PREHYPERTENSION 09/24/2011 KATRINA SOLIS, JANINE Arriola 796.2 PREHYPERTENSION 09/24/2011 LINDA BENTLEY APRN T 796.2 PREHYPERTENSION 09/24/2011 LINDA BENTLEY APRN T 796.2 PREHYPERTENSION 09/24/2011 LINDA BENTLEY APRN T 796.2 PREHYPERTENSION 09/24/2011 LINDA BENTLEY APRN T 796.2 PREHYPERTENSION 09/24/2011 LINDA BENTLEY APRN T 796.2 PREHYPERTENSION 09/24/2011 LINDA BENTLEY APRN 796.2 PREHYPERTENSION 09/24/2011 LINDA BENTLEY APRN T 796.2 PREHYPERTENSION 09/24/2011 LINDA BENTLEY APRN T 796.2 PREHYPERTENSION 09/24/2011 LINDA BENTLEY APRN T 796.2 PREHYPERTENSION 09/24/2011 JANINE HERNDON MD N 796.2 PREHYPERTENSION 09/24/2011 LNIDA BENTLEY APRN T 796.2 PREHYPERTENSION 09/24/2011 JANINE HERNDON MD N 796.2 PREHYPERTENSION 10/01/2011 401.1 ESSENTIAL HYPERTENSION BENIGN 10/01/2011 LINDA BENTLEY APRN 401.1 ESSENTIAL HYPERTENSION BENIGN 10/01/2011 401.1 ESSENTIAL HYPERTENSION BENIGN 10/01/2011 ADOLPH GRAHAM MD 401.1 ESSENTIAL HYPERTENSION BENIGN 10/01/2011 LINDA BENTLEY APRN 401.1 ESSENTIAL HYPERTENSION BENIGN 10/01/2011 LINDA BENTLEY APRN 401.1 ESSENTIAL HYPERTENSION BENIGN 10/01/2011 401.1 ESSENTIAL HYPERTENSION BENIGN 10/01/2011 401.1 ESSENTIAL HYPERTENSION BENIGN 10/01/2011 401.1 ESSENTIAL HYPERTENSION BENIGN 10/01/2011 401.1 ESSENTIAL HYPERTENSION BENIGN 10/01/2011 401.1 ESSENTIAL HYPERTENSION BENIGN 10/01/2011 NIKHIL PITTS DO K 401.1 ESSENTIAL HYPERTENSION BENIGN 10/01/2011 LINDA BENTLEY APRN T 401.1 ESSENTIAL HYPERTENSION BENIGN 10/01/2011 RIVER ARCE MD 401.1 ESSENTIAL HYPERTENSION BENIGN 10/01/2011 SANTOS SOLIS, ADOLPH Jon 401.1 ESSENTIAL HYPERTENSION BENIGN 10/01/2011 LINDA BENTLEY APRN T 401.1 ESSENTIAL HYPERTENSION BENIGN 10/01/2011 JANINE HERNDON MD N 401.1 ESSENTIAL HYPERTENSION BENIGN 10/01/2011 LINDA BENTLEY APRN T 401.1 ESSENTIAL HYPERTENSION BENIGN 10/01/2011 LINDA BENTLEY APRN T 401.1 ESSENTIAL HYPERTENSION BENIGN 10/01/2011 LINDA BENTLEY APRN T 401.1 ESSENTIAL HYPERTENSION BENIGN 10/01/2011 LINDA BENTLEY APRN T 401.1 ESSENTIAL HYPERTENSION BENIGN 10/01/2011 LINDA BENTLEY APRN T 401.1 ESSENTIAL HYPERTENSION BENIGN 10/01/2011 LINDA BENTLEY APRN T 401.1 ESSENTIAL HYPERTENSION BENIGN 10/01/2011 LINDA BENTLEY APRN T 401.1 ESSENTIAL HYPERTENSION BENIGN 10/01/2011 LINDA BENTLEY APRN T 401.1 ESSENTIAL HYPERTENSION BENIGN 10/01/2011 LINDA BENTLEY APRN T 401.1 ESSENTIAL HYPERTENSION BENIGN 10/01/2011 JANINE HERNDON MD N 401.1 ESSENTIAL HYPERTENSION BENIGN 10/01/2011 LINDA BENTLEY APRN T 401.1 ESSENTIAL HYPERTENSION BENIGN 10/01/2011 JANINE HERNDON MD N 401.1 ESSENTIAL HYPERTENSION BENIGN 08/03/2012 578.1 BLOOD IN STOOL 08/03/2012 LINDA BENTLEY APRN 578.1 BLOOD IN STOOL 08/03/2012 578.1 BLOOD IN STOOL 08/03/2012 SANTOS SOLIS, ADOLPH Jon 578.1 BLOOD IN STOOL 08/03/2012 LINDA BENTLEY APRN 578.1 BLOOD IN STOOL 08/03/2012 LINDA BENTLEY APRN 578.1 BLOOD IN STOOL 08/03/2012 578.1 BLOOD IN STOOL 08/03/2012 578.1 BLOOD IN STOOL 08/03/2012 578.1 BLOOD IN STOOL 08/03/2012 578.1 BLOOD IN STOOL 08/03/2012 578.1 BLOOD IN STOOL 08/03/2012 NIKHIL PITTS DO 578.1 BLOOD IN STOOL 08/03/2012 LINDA BENTLEY APRN 578.1 BLOOD IN STOOL 08/03/2012 RIVER ARCE MD 578.1 BLOOD IN STOOL 08/03/2012 SANTOS SOLIS, ADOLPH M 578.1 BLOOD IN STOOL 08/03/2012 LINDA BENTLEY APRN 578.1 BLOOD IN STOOL 08/03/2012 JANINE HERNDON MD N 578.1 BLOOD IN STOOL 08/03/2012 LINDA BENTLEY APRN 578.1 BLOOD IN STOOL 08/03/2012 LINDA BENTLEY APRN 578.1 BLOOD IN STOOL 08/03/2012 LINDA BENTLEY APRN 578.1 BLOOD IN STOOL 08/03/2012 LINDA BENTLEY APRN 578.1 BLOOD IN STOOL 08/03/2012 LINDA BENTLEY APRN 578.1 BLOOD IN STOOL 08/03/2012 LINDA BENTLEY APRN 578.1 BLOOD IN STOOL 08/03/2012 LINDA BENTLEY APRN 578.1 BLOOD IN STOOL 08/03/2012 LINDA BENTLEY APRN 578.1 BLOOD IN STOOL 08/03/2012 LINDA BENTLEY APRN 578.1 BLOOD IN STOOL 08/03/2012 JANINE HERNDON MD N 578.1 BLOOD IN STOOL 08/03/2012 LINDA BENTLEY APRN 578.1 BLOOD IN STOOL 08/03/2012 JANINE HERNDON MD 578.1 BLOOD IN STOOL 08/30/2012 Ot 154.1 MALIGNANT NEOPL RECTUM 08/30/2012 Ot 211.3 BENIGN NEOPLASM LG BOWEL 08/30/2012 Ot 280.0 CHR BLOOD LOSS ANEMIA 10/03/2012 LINDA BENTLEY APRN 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 OR MAINTAINING SLEEP 10/03/2012 LINDA BENTLEY APRN 569.42 ANAL OR RECTAL PAIN 10/03/2012 LINDA BENTLEY APRN 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 OR MAINTAINING SLEEP 10/03/2012 LINDA BENTLEY APRN 569.42 ANAL OR RECTAL PAIN 10/03/2012 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 OR MAINTAINING SLEEP 10/03/2012 569.42 ANAL OR RECTAL PAIN 10/03/2012 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 OR MAINTAINING SLEEP 10/03/2012 569.42 ANAL OR RECTAL PAIN 10/03/2012 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 OR MAINTAINING SLEEP 10/03/2012 569.42 ANAL OR RECTAL PAIN 10/03/2012 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 OR MAINTAINING SLEEP 10/03/2012 569.42 ANAL OR RECTAL PAIN 10/03/2012 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 OR MAINTAINING SLEEP 10/03/2012 569.42 ANAL OR RECTAL PAIN 10/03/2012 NIKHIL PITTS DO 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 OR MAINTAINING SLEEP 10/03/2012 NIKHIL PITTS DO 569.42 ANAL OR RECTAL PAIN 10/03/2012 LINDA BENTLEY APRN 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 OR MAINTAINING SLEEP 10/03/2012 LINDA BENTLEY APRN 569.42 ANAL OR RECTAL PAIN 10/03/2012 RIVER ARCE MD 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 OR MAINTAINING SLEEP 10/03/2012 RIVER ARCE MD 569.42 ANAL OR RECTAL PAIN 10/03/2012 ADOLPH GRAHAM MD 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 OR MAINTAINING SLEEP 10/03/2012 ADOLPH GRAHAM MD 569.42 ANAL OR RECTAL PAIN 10/03/2012 LINDA BENTLEY APRN 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 OR MAINTAINING SLEEP 10/03/2012 LINDA BENTLEY APRN 569.42 ANAL OR RECTAL PAIN 10/03/2012 JANINE HERNDON MD 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 OR MAINTAINING SLEEP 10/03/2012 JANINE HERNDON MD 569.42 ANAL OR RECTAL PAIN 10/03/2012 LINDA BENTLEY APRN 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 OR MAINTAINING SLEEP 10/03/2012 LINDA BENTLEY APRN 569.42 ANAL OR RECTAL PAIN 10/03/2012 LINDA BENTLEY APRN 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 OR MAINTAINING SLEEP 10/03/2012 LINDA BENTLEY APRN 569.42 ANAL OR RECTAL PAIN 10/03/2012 LINDA BENTLEY APRN T 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 OR MAINTAINING SLEEP 10/03/2012 LINDA BENTLEY APRN 569.42 ANAL OR RECTAL PAIN 10/03/2012 LINDA BENTLEY APRN 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 OR MAINTAINING SLEEP 10/03/2012 LINDA BENTLEY APRN 569.42 ANAL OR RECTAL PAIN 10/03/2012 LINDA BENTLEY APRN 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 OR MAINTAINING SLEEP 10/03/2012 LINDA BENTLEY APRN 569.42 ANAL OR RECTAL PAIN 10/03/2012 SHEREE CONTINUOUS STILL OPERATOR, LINDA T 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 OR MAINTAINING SLEEP 10/03/2012 LINDA BENTLEY APRN T 569.42 ANAL OR RECTAL PAIN 10/03/2012 LINDA BENTLEY APRN 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 OR MAINTAINING SLEEP 10/03/2012 LINDA BENTLEY APRN 569.42 ANAL OR RECTAL PAIN 10/03/2012 LINDA BENTLEY APRN 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 OR MAINTAINING SLEEP 10/03/2012 LINDA BENTLEY APRN 569.42 ANAL OR RECTAL PAIN 10/03/2012 LINDA BENTLEY APRN 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 OR MAINTAINING SLEEP 10/03/2012 LINDA BENTLEY APRN 569.42 ANAL OR RECTAL PAIN 10/03/2012 JANINE HERNDON MD 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 OR MAINTAINING SLEEP 10/03/2012 JANINE HERNDON MD 569.42 ANAL OR RECTAL PAIN 10/03/2012 LINDA BENTLEY APRN 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 OR MAINTAINING SLEEP 10/03/2012 LINDA BENTLEY APRN 569.42 ANAL OR RECTAL PAIN 10/03/2012 JANINE HERNDON MD 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 OR MAINTAINING SLEEP 10/03/2012 JANINE HERNDON MD 569.42 ANAL OR RECTAL PAIN 11/27/2012 ADOLPH GRAHAM MD Ot 154.1 MALIGNANT NEOPL RECTUM 11/27/2012 ADOLPH GRAHAM MD Ot V15.3 HX OF IRRADIATION 11/27/2012 ADOLPH GRAHAM MD Ot V87.41 PERSONAL HISTORY OF ANTINEOPLASTIC CHEMO 12/10/2012 ROXI CALI MD Ot 154.1 MALIGNANT NEOPL RECTUM 12/10/2012 ROXI CALI MD Ot 285.9 ANEMIA NOS 12/10/2012 ROXI CALI MD Ot V58.0 ENCOUNTER FOR RADIOTHERAPY 12/17/2012 ADOLPH GRAHAM MD Ot 154.1 MALIGNANT NEOPL RECTUM 12/17/2012 ADOLPH GRAHAM MD Ot 275.3 DIS PHOSPHORUS METABOL 12/17/2012 ADOLPH GRAHAM MD Ot 276.8 HYPOPOTASSEMIA 12/17/2012 ADOLPH GRAHAM MD Ot 560.1 PARALYTIC ILEUS 12/17/2012 ADOLPH GRAHAM MD Ot 596.54 NEUROGENIC BLADDER, NOT OTHERWISE SPECIF 12/17/2012 ADOLPH GRAHAM MD Ot 788.20 RETENTION OF URINE NOS 12/17/2012 SANTOS SOLIS, ADOLPH Jon Ot 997.49 OTHER DIGESTIVE SYSTEM COMPLICATIONS 12/17/2012 SANTOS SOLIS, ADOLPH Jon Ot 997.5 SURG COMPL-URINARY TRACT 01/01/2013 296.90 MOOD DISORDER 01/01/2013 599.0 URINARY TRACT INFECTION 01/01/2013 789.05 ABDOMINAL PAIN PERIUMBILIC 01/01/2013 296.90 MOOD DISORDER 01/01/2013 599.0 URINARY TRACT INFECTION 01/01/2013 789.05 ABDOMINAL PAIN PERIUMBILIC 01/01/2013 296.90 MOOD DISORDER 01/01/2013 599.0 URINARY TRACT INFECTION 01/01/2013 789.05 ABDOMINAL PAIN PERIUMBILIC 01/01/2013 296.90 MOOD DISORDER 01/01/2013 599.0 URINARY TRACT INFECTION 01/01/2013 789.05 ABDOMINAL PAIN PERIUMBILIC 01/01/2013 296.90 MOOD DISORDER 01/01/2013 599.0 URINARY TRACT INFECTION 01/01/2013 789.05 ABDOMINAL PAIN PERIUMBILIC 01/01/2013 PITTS DO, NIKHIL K 296.90 MOOD DISORDER 01/01/2013 PITTS DO, NIKHIL K 599.0 URINARY TRACT INFECTION 01/01/2013 PITTS DO, NIKHIL K 789.05 ABDOMINAL PAIN PERIUMBILIC 01/01/2013 LINDA BENTLEY APRN 296.90 MOOD DISORDER 01/01/2013 LINDA BENTLEY APRN 599.0 URINARY TRACT INFECTION 01/01/2013 LINDA BENTLEY APRN 789.05 ABDOMINAL PAIN PERIUMBILIC 01/01/2013 RIVER ARCE MD 296.90 MOOD DISORDER 01/01/2013 RIVER ARCE MD 599.0 URINARY TRACT INFECTION 01/01/2013 RIVER ARCE MD 789.05 ABDOMINAL PAIN PERIUMBILIC 01/01/2013 ADOLPH GRAHAM MD 296.90 MOOD DISORDER 01/01/2013 ADOLPH GRAHAM MD 599.0 URINARY TRACT INFECTION 01/01/2013 ADOLPH GRAHAM MD 789.05 ABDOMINAL PAIN PERIUMBILIC 01/01/2013 LINDA BENTLEY APRN 296.90 MOOD DISORDER 01/01/2013 LINDA BENTLEY APRN 599.0 URINARY TRACT INFECTION 01/01/2013 SHEREE CONTINUOUS STILL OPERATOR, LINDA T 789.05 ABDOMINAL PAIN PERIUMBILIC 01/01/2013 KATRINA SOLIS, JANINE N 296.90 MOOD DISORDER 01/01/2013 KATRINA SOLIS, JANINE N 599.0 URINARY TRACT INFECTION 01/01/2013 KATRINA SOLIS, JANINE N 789.05 ABDOMINAL PAIN PERIUMBILIC 01/01/2013 SHEREE FARRELL, LINDA T 296.90 MOOD DISORDER 01/01/2013 SHEREE RIVASN, LINDA T 599.0 URINARY TRACT INFECTION 01/01/2013 SHEREE RIVASN, LINDA T 789.05 ABDOMINAL PAIN PERIUMBILIC 01/01/2013 SHEREE RIVASN, LINDA T 296.90 MOOD DISORDER 01/01/2013 SHEREE RIVASN, LINDA T 599.0 URINARY TRACT INFECTION 01/01/2013 SHEREE RIVASN, LINDA T 789.05 ABDOMINAL PAIN PERIUMBILIC 01/01/2013 SHEREE RIVASN, LINDA T 296.90 MOOD DISORDER 01/01/2013 SHEREE FARRELL, LINDA T 599.0 URINARY TRACT INFECTION 01/01/2013 SHEREE FARRELL, LINDA T 789.05 ABDOMINAL PAIN PERIUMBILIC 01/01/2013 SHEREE RIVASN, LINDA T 296.90 MOOD DISORDER 01/01/2013 SHEREE RIVASN, LINDA T 599.0 URINARY TRACT INFECTION 01/01/2013 SHEREE RIVASN, LINDA T 789.05 ABDOMINAL PAIN PERIUMBILIC 01/01/2013 SHEREE RIVASN, LINDA T 296.90 MOOD DISORDER 01/01/2013 SHEREE RIVASN, LINDA T 599.0 URINARY TRACT INFECTION 01/01/2013 SHEREE FARRELL, LINDA T 789.05 ABDOMINAL PAIN PERIUMBILIC 01/01/2013 SHEREE FARRELL, LINDA T 296.90 MOOD DISORDER 01/01/2013 SHEREE RIVASN, LINDA T 599.0 URINARY TRACT INFECTION 01/01/2013 SHEREE RIVASN, LINDA T 789.05 ABDOMINAL PAIN PERIUMBILIC 01/01/2013 SHEREE RIVASN, LINDA T 296.90 MOOD DISORDER 01/01/2013 SHEREE RIVASN, LINDA T 599.0 URINARY TRACT INFECTION 01/01/2013 SHEREE RIVASN, LINDA T 789.05 ABDOMINAL PAIN PERIUMBILIC 01/01/2013 SHEREE FARRELL, LINDA T 296.90 MOOD DISORDER 01/01/2013 SHEREE FARRELL, LINDA T 599.0 URINARY TRACT INFECTION 01/01/2013 SHEREE FARRELL, LINDA T 789.05 ABDOMINAL PAIN PERIUMBILIC 01/01/2013 LINDA BENTLEY APRN T 296.90 MOOD DISORDER 01/01/2013 LINDA BENTLEY APRN T 599.0 URINARY TRACT INFECTION 01/01/2013 LINDA BENTLEY APRN T 789.05 ABDOMINAL PAIN PERIUMBILIC 01/01/2013 JANINE HERNDON MD N 296.90 MOOD DISORDER 01/01/2013 JANINE HERNDON MD N 599.0 URINARY TRACT INFECTION 01/01/2013 JANINE HERNDON MD N 789.05 ABDOMINAL PAIN PERIUMBILIC 01/01/2013 LINDA BENTLEY APRN T 296.90 MOOD DISORDER 01/01/2013 LINDA BENTLEY APRN T 599.0 URINARY TRACT INFECTION 01/01/2013 LINDA BENTLEY APRN T 789.05 ABDOMINAL PAIN PERIUMBILIC 01/01/2013 JANINE HERNDON MD N 296.90 MOOD DISORDER 01/01/2013 JANINE HERNDON MD N 599.0 URINARY TRACT INFECTION 01/01/2013 JANINE HERNDON MD N 789.05 ABDOMINAL PAIN PERIUMBILIC 01/07/2013 154.1 MALIGNANT NEOPLASM OF RECTUM 01/07/2013 154.1 MALIGNANT NEOPLASM OF RECTUM 01/07/2013 154.1 MALIGNANT NEOPLASM OF RECTUM 01/07/2013 NIKHIL PITTS DO 154.1 MALIGNANT NEOPLASM OF RECTUM 01/07/2013 LINDA BENTLEY APRN T 154.1 MALIGNANT NEOPLASM OF RECTUM 01/07/2013 RIVER ARCE MD 154.1 MALIGNANT NEOPLASM OF RECTUM 01/07/2013 ADOLPH GRAHAM MD 154.1 MALIGNANT NEOPLASM OF RECTUM 01/07/2013 LINDA BENTLEY APRN 154.1 MALIGNANT NEOPLASM OF RECTUM 01/07/2013 JANINE HERNDON MD N 154.1 MALIGNANT NEOPLASM OF RECTUM 01/07/2013 LINDA BENTLEY APRN T 154.1 MALIGNANT NEOPLASM OF RECTUM 01/07/2013 LINDA BENTLEY APRN 154.1 MALIGNANT NEOPLASM OF RECTUM 01/07/2013 LINDA BENTLEY APRN T 154.1 MALIGNANT NEOPLASM OF RECTUM 01/07/2013 LINDA BENTLEY APRN T 154.1 MALIGNANT NEOPLASM OF RECTUM 01/07/2013 LINDA BENTLEY APRN 154.1 MALIGNANT NEOPLASM OF RECTUM 01/07/2013 LINDA BENTLEY APRN 154.1 MALIGNANT NEOPLASM OF RECTUM 01/07/2013 LINDA BENTLEY APRN T 154.1 MALIGNANT NEOPLASM OF RECTUM 01/07/2013 LINDA BENTLEY APRN T 154.1 MALIGNANT NEOPLASM OF RECTUM 01/07/2013 LINDA BENTLEY APRN 154.1 MALIGNANT NEOPLASM OF RECTUM 01/07/2013 JANINE HERNDON MD 154.1 MALIGNANT NEOPLASM OF RECTUM 01/07/2013 LINDA BENTLEY APRN 154.1 MALIGNANT NEOPLASM OF RECTUM 01/07/2013 JANINE HERNDON MD 154.1 MALIGNANT NEOPLASM OF RECTUM 02/21/2013 NADIA SOLIS, VIPIN A Ot 591 HYDRONEPHROSIS 02/21/2013 NADIA SOLIS, VIPIN A Ot 788.0 RENAL COLIC 02/21/2013 NADIA SOLIS, VIPIN A Ot 789.04 ABDOMINAL PAIN, LEFT LOWER QUADRANT 03/26/2013 PITTS DO, NIKHIL K Ot 041.49 03/26/2013 PITTS DO, NIKHIL K Ot 275.2 03/26/2013 PITTS DO, NIKHIL K Ot 276.1 03/26/2013 PITTS DO, NIKHIL K Ot 276.8 03/26/2013 PITTS DO, NIKHIL K Ot 280.9 03/26/2013 PITTS DO, NIKHIL K Ot 401.9 03/26/2013 PITTS DO, NIKHIL K Ot 591 03/26/2013 PITTS DO, NIKHIL K Ot 595.9 03/26/2013 PITTS DO, NIKHIL K Ot 596.54 03/26/2013 PITTS DO, NIKHIL K Ot V10.06 03/26/2013 PITTS DO, NIKHIL K Ot V15.3 03/26/2013 PITTS DO, NIKHIL K Ot V44.2 03/26/2013 PITTS DO, NIKHIL K Ot V45.72 03/26/2013 PITTS DO, NIKHIL K Ot V45.89 03/26/2013 PITTS DO, NIKHIL K Ot V87.41 04/23/2013 SANTOS SOLIS, ADOLPH Jon Ot 276.8 HYPOPOTASSEMIA 04/23/2013 SANTOS SOLIS, ADOLPH Jon Ot 596.54 NEUROGENIC BLADDER, NOT OTHERWISE SPECIF 04/23/2013 SANTOS SOLIS, ADOLPH Jon Ot V10.06 HX-RECTAL ANAL MALIGN 04/23/2013 SANTOS SOLIS, ADOLPH Jon Ot V55.2 ATTEN TO ILEOSTOMY 04/25/2013 ROXI CALI MD Ot 154.1 MALIGNANT NEOPL RECTUM 04/25/2013 VIRAJ MD, ROXI K Ot V58.81 FIT/ADJ VASCULAR CATHETER 05/02/2013 SANTOS SOLIS, ADOLPH Jon Ot 041.04 STREPTOCOCCUS INFECTION NOS, GROUP D ( EN 05/02/2013 SANTOS SOLIS, ADOLPH Jon Ot 041.85 BACTERIAL INFEC DUE TO OTH GRAM-NEG ORGA 05/02/2013 ADOLPH GRAHAM MD Ot 276.8 HYPOPOTASSEMIA 05/02/2013 ADOLPH GRAHAM MD Ot 276.9 ELECTROLYT/FLUID DIS NEC 05/02/2013 ADOLPH GRAHAM MD Ot 401.9 HYPERTENSION NOS 05/02/2013 ADOLPH GRAHAM MD Ot 591 HYDRONEPHROSIS 05/02/2013 ADOLPH GRAHAM MD Ot 596.54 NEUROGENIC BLADDER, NOT OTHERWISE SPECIF 05/02/2013 ADOLPH GRAHAM MD Ot 599.0 URIN TRACT INFECTION NOS 05/02/2013 ADOLPH GRAHAM MD Ot V10.06 HX-RECTAL ANAL MALIGN 05/02/2013 ADOLPH GRAHAM MD Ot V45.89 POSTSURGICAL STATES NEC 05/20/2013 LINDA BENTLEY APRN 591 HYDRONEPHROSIS 05/20/2013 JANINE HERNDON MD 591 HYDRONEPHROSIS 05/20/2013 LINDA BENTLEY APRN 591 HYDRONEPHROSIS 05/20/2013 LINDA BENTLEY APRN 591 HYDRONEPHROSIS 05/20/2013 LINDA BENTLEY APRN 591 HYDRONEPHROSIS 05/20/2013 LINDA BENTLEY APRN 591 HYDRONEPHROSIS 05/20/2013 LINDA BENTLEY APRN 591 HYDRONEPHROSIS 05/20/2013 LINDA BENTLEY APRN 591 HYDRONEPHROSIS 05/20/2013 LINDA BENTLEY APRN 591 HYDRONEPHROSIS 05/20/2013 LINDA BENTLEY APRN 591 HYDRONEPHROSIS 05/20/2013 LINDA BENTLEY APRN 591 HYDRONEPHROSIS 05/20/2013 JANINE HERNDON MD 591 HYDRONEPHROSIS 05/20/2013 LINDA BENTLEY APRN 591 HYDRONEPHROSIS 05/20/2013 JANINE HERNDON MD 591 HYDRONEPHROSIS 07/10/2013 INEZBEATRICE Mai DOA Ana Rosa Ot 154.1 MALIGNANT NEOPL RECTUM 07/10/2013 INEZ DO JOSE ANTONIO K Ot 599.0 URIN TRACT INFECTION NOS 07/10/2013 INEZ DICKSONBEATRICEA Ana Rosa Ot 599.70 HEMATURIA, UNSPECIFIED 08/08/2013 ROXI CALI MD Ot 008.45 INTESTINAL INFECTION DUE TO CLOSTRIDIUM 08/08/2013 ROXI CALI MD Ot 041.11 METHICILLIN SUSCEPTIBLE STAPHYLOCOCCUS A 08/08/2013 ROXI CALI MD Ot 238.71 ESSENTIAL THROMBOCYTHEMIA 08/08/2013 ROXI CALI MD Ot 275.2 DIS MAGNESIUM METABOLISM 08/08/2013 ROXI CALI MD Ot 276.51 DEHYDRATION 08/08/2013 ROXI CALI MD Ot 276.8 HYPOPOTASSEMIA 08/08/2013 ROXI CALI MD Ot 285.9 ANEMIA NOS 08/08/2013 ROXI CALI MD Ot 300.00 ANXIETY STATE NOS 08/08/2013 ROXI CALI MD Ot 311 DEPRESSIVE DISORDER NEC 08/08/2013 ROXI CALI MD Ot 401.9 HYPERTENSION NOS 08/08/2013 ROIX CALI MD Ot 530.11 REFLUX ESOPHAGITIS 08/08/2013 ORXI CALI MD Ot 531.90 STOMACH ULCER NOS 08/08/2013 ROXI CALI MD Ot 535.41 OTHER SPECIFIED GASTRITIS, WITH HEMORRHA 08/08/2013 ROXI CALI MD Ot 536.3 GASTROPARESIS 08/08/2013 ROXI CALI MD Ot 553.3 DIAPHRAGMATIC HERNIA 08/08/2013 ROXI CALI MD Ot 584.9 ACUTE RENAL FAILURE, UNSPECIFIED 08/08/2013 ROXI CALI MD Ot 596.54 NEUROGENIC BLADDER, NOT OTHERWISE SPECIF 08/08/2013 ROXI CALI MD Ot 599.0 URIN TRACT INFECTION NOS 08/08/2013 ROXI CALI MD Ot 607.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, ORGANIC ORIGN 08/08/2013 ROXI CALI MD Ot 788.30 UNSPECIFIED URINARY INCONTINENCE 08/08/2013 ROXI CALI MD Ot V10.06 HX-RECTAL ANAL MALIGN 08/08/2013 ROXI CLAI MD Ot V13.02 PERSONAL HISTORY, URINARY (TRACT) INFECT 08/08/2013 ROXI CALI MD Ot V15.3 HX OF IRRADIATION 08/08/2013 ROXI CALI MD Ot V45.79 ACQRD ABSENCE OF OTH ORGAN 08/08/2013 ROXI CALI MD Ot V87.41 PERSONAL HISTORY OF ANTINEOPLASTIC CHEMO 08/24/2013 JANINE HERNDON MD Ot 008.42 PSEUDOMONAS ENTERITIS 08/24/2013 JANINE HERNDON MD Ot 041.49 OTHER AND UNSPECIFIED ESCHERICHIA COLI [ 08/24/2013 JANINE HERNDON MD Ot 154.1 MALIGNANT NEOPL RECTUM 08/24/2013 JANINE HERNDON MD Ot 276.51 DEHYDRATION 08/24/2013 JANINE HERNDON MD Ot 401.9 HYPERTENSION NOS 08/24/2013 JANINE HERNDON MD Ot 535.50 UNSP GASTRITIS GASTRODUODENITIS W/O ME 08/24/2013 JANINE HERNDON MD Ot 536.3 GASTROPARESIS 08/24/2013 JANINE HERNDON MD Ot 593.4 URETERIC OBSTRUCTION NEC 08/24/2013 JANINE HERNDON MD Ot 593.9 RENAL URETERAL DIS NOS 08/24/2013 JANINE HERNDON MD Ot 596.54 NEUROGENIC BLADDER, NOT OTHERWISE SPECIF 08/24/2013 JANINE HERNDON MD Ot 599.0 URIN TRACT INFECTION NOS 08/24/2013 JANINE HERNDON MD Ot 787.01 NAUSEA WITH VOMITING 08/24/2013 JANINE HERNDON MD Ot 788.20 RETENTION OF URINE NOS 08/24/2013 JANINE HERNDON MD Ot V13.02 PERSONAL HISTORY, URINARY (TRACT) INFECT 08/26/2013 ROXI CALI MD Ot 154.1 MALIGNANT NEOPL RECTUM 08/26/2013 ROXI CALI MD Ot 280.9 IRON DEFIC ANEMIA NOS 08/26/2013 ROXI CALI MD Ot 311 DEPRESSIVE DISORDER NEC 08/26/2013 ROXI CALI MD Ot 780.52 INSOMNIA, UNSPECIFIED 08/26/2013 ROXI CALI MD Ot 788.38 OVERFLOW INCONTINENCE 08/26/2013 ROXI CALI MD Ot V13.02 PERSONAL HISTORY, URINARY (TRACT) INFECT 08/26/2013 ROXI CALI MD Ot V15.3 HX OF IRRADIATION 08/26/2013 ROXI CALI MD Ot V58.11 ENCOUNTER FOR ANTINEOPLASTIC CHEMOTHERAP 08/26/2013 ROXI CALI MD, Ot V58.69 OTH MED,LT,CURRENT USE 08/26/2013 ROXI CALI MD Ot V87.41 PERSONAL HISTORY OF ANTINEOPLASTIC CHEMO 09/06/2013 JANINE HERNDON MD N 783.41 FAILURE TO THRIVE 09/06/2013 LINDA BENTLEY APRN T 783.41 FAILURE TO THRIVE 09/06/2013 LINDA BENTLEY APRN T 783.41 FAILURE TO THRIVE 09/06/2013 LINDA BENTLEY APRN T 783.41 FAILURE TO THRIVE 09/06/2013 LINDA BENTLEY APRN T 783.41 FAILURE TO THRIVE 09/06/2013 LINDA BENTLEY APRN T 783.41 FAILURE TO THRIVE 09/06/2013 LINDA BENTLEY APRN T 783.41 FAILURE TO THRIVE 09/06/2013 LINDA BENTLEY APRN T 783.41 FAILURE TO THRIVE 09/06/2013 LINDA BENTLEY APRN T 783.41 FAILURE TO THRIVE 09/06/2013 LINDA BENTLEY APRN T 783.41 FAILURE TO THRIVE 09/06/2013 JANINE HERNDON MD N 783.41 FAILURE TO THRIVE 09/06/2013 LINDA BENTLEY APRN 783.41 FAILURE TO THRIVE 09/06/2013 JANINE HERNDON MD 783.41 FAILURE TO THRIVE 10/21/2013 ROXI CALI MD Ot 041.49 OTHER AND UNSPECIFIED ESCHERICHIA COLI [ 10/21/2013 ROXI CALI MD Ot 154.1 MALIGNANT NEOPL RECTUM 10/21/2013 ROXI CALI MD Ot 276.8 HYPOPOTASSEMIA 10/21/2013 ROXI CALI MD Ot 285.9 ANEMIA NOS 10/21/2013 ROXI CALI MD Ot 311 DEPRESSIVE DISORDER NEC 10/21/2013 ROXI CALI MD Ot 530.11 REFLUX ESOPHAGITIS 10/21/2013 ROXI CALI MD Ot 530.81 ESOPHAGEAL REFLUX 10/21/2013 ROXI CALI MD Ot 535.50 UNSP GASTRITIS GASTRODUODENITIS W/O ME 10/21/2013 ROXI CALI MD Ot 536.3 GASTROPARESIS 10/21/2013 ROXI CALI MD Ot 553.3 DIAPHRAGMATIC HERNIA 10/21/2013 ROXI CALI MD Ot 560.9 INTESTINAL OBSTRUCT NOS 10/21/2013 ROXI CALI MD Ot 593.4 URETERIC OBSTRUCTION NEC 10/21/2013 ROXI CALI MD Ot 596.54 NEUROGENIC BLADDER, NOT OTHERWISE SPECIF 10/21/2013 ROXI CALI MD Ot 599.0 URIN TRACT INFECTION NOS 10/21/2013 ROXI CALI MD Ot 607.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, ORGANIC ORIGN 10/21/2013 ROXI CALI MD Ot 788.20 RETENTION OF URINE NOS 10/21/2013 ROXI CALI MD Ot V12.79 PERSONAL HISTORY OTH SPEC DIGESTIVE SYST 12/11/2013 LINDA BENTLEY APRN T 357.9 NEUROPATHY UNSP 12/11/2013 LINDA BENTLEY APRN T 357.9 NEUROPATHY UNSP 12/11/2013 LINDA BENTLEY APRN T 357.9 NEUROPATHY UNSP 12/11/2013 LINDA BENTLEY APRN T 357.9 NEUROPATHY UNSP 12/11/2013 LINDA BENTLEY APRN T 357.9 NEUROPATHY UNSP 12/11/2013 LINDA BENTLEY APRN T 357.9 NEUROPATHY UNSP 12/11/2013 LINDA BENTLEY APRN T 357.9 NEUROPATHY UNSP 12/11/2013 LINDA BENTLEY APRN T 357.9 NEUROPATHY UNSP 12/11/2013 JANINE HERNDON MD N 357.9 NEUROPATHY UNSP 12/11/2013 LINDA BENTLEY APRN 357.9 NEUROPATHY UNSP 12/11/2013 JANINE HERNDON MD N 357.9 NEUROPATHY UNSP 12/23/2013 ROXI CALI MD Ot 154.1 MALIGNANT NEOPL RECTUM 12/23/2013 ROXI CALI MD Ot 280.9 IRON DEFIC ANEMIA NOS 12/23/2013 ROXI CALI MD Ot 311 DEPRESSIVE DISORDER NEC 12/23/2013 ROXI CALI MD Ot 780.52 INSOMNIA, UNSPECIFIED 12/23/2013 ROXI CALI MD Ot 788.38 OVERFLOW INCONTINENCE 12/23/2013 ROXI CALI MD Ot V15.3 HX OF IRRADIATION 12/23/2013 ROXI CALI MD Ot V58.69 OTH MED,LT,CURRENT USE 12/23/2013 ROXI CALI MD Ot V87.41 PERSONAL HISTORY OF ANTINEOPLASTIC CHEMO 01/24/2014 VIPIN ZUNIGA MD Ot 276.8 HYPOPOTASSEMIA 01/24/2014 VIPIN ZUNIGA MD Ot 599.0 URIN TRACT INFECTION NOS 03/17/2014 WAYLON TAYLOR MD Ot 154.1 03/17/2014 WAYLON TAYLOR MD Ot 401.9 03/17/2014 CLAUDIA SOLIS, WAYLON Mathis Ot V55.6 06/04/2014 LINDA BENTLEY APRN 728.87 WEAKNESS 06/04/2014 LINDA BENTLEY APRN 728.87 WEAKNESS 06/04/2014 LINDA BENTLEY APRN T 728.87 WEAKNESS 06/04/2014 JANINE HERNDON MD 728.87 WEAKNESS 06/04/2014 LINDA BENTLEY APRN 728.87 WEAKNESS 06/04/2014 JANINE HERNDON MD 728.87 WEAKNESS 06/20/2014 SANTOS SOLIS, ADOLPH M Ot V72.84 06/20/2014 SANTOS SOLIS, ADOLPH Jon Ot 153.9 06/20/2014 SANTOS SOLIS, ADOLPH M Ot V72.81 06/20/2014 SANTOS SOLIS, ADOLPH Jon Ot V74.8 06/20/2014 LINDA BENTLEY Ot 591 06/20/2014 LINDA BENTLEY MEDICAL OFFICE COORDINATOR Ot 789.05 06/20/2014 CLAUDE SOLIS, RIVER Fenton Ot 788.1 06/20/2014 VIRAJ SOLIS, ROXI Oseguera Ot 154.1 06/20/2014 VIRAJ SOLIS, ROXI Oseguera Ot 280.9 06/20/2014 VIRAJ SOLIS, ROXI Oseguera Ot 311 06/20/2014 VIRAJ SOLIS, ROXI Oseguera Ot 780.52 06/20/2014 VIRAJ SOLIS, ROXI Oseguera Ot 788.38 06/20/2014 VIRAJ SOLIS, ROXI Oseguera Ot V15.3 06/20/2014 VIRAJ SOLIS, ROXI Oseguera Ot V58.69 06/20/2014 VIRAJ SOLIS, ROXI Oseguera Ot V87.41 06/27/2014 LINDA BENTLEY APRN 682.8 CELLULITIS AND ABSCESS OF OTHER SPECIFIED SITES 06/27/2014 LINDA BENTLEY APRN 682.8 CELLULITIS AND ABSCESS OF OTHER SPECIFIED SITES 06/27/2014 JANINE HERNDON MD 682.8 CELLULITIS AND ABSCESS OF OTHER SPECIFIED SITES 06/27/2014 LINDA BENTLEY APRN 682.8 CELLULITIS AND ABSCESS OF OTHER SPECIFIED SITES 06/27/2014 JANINE HERNDON MD 682.8 CELLULITIS AND ABSCESS OF OTHER SPECIFIED SITES 08/15/2014 LESLYE BLANCO Ot 599.0 08/15/2014 LESLYE BLANCO Ot 786.50 08/15/2014 ALYSSA DOMINIQUE LESLYE L Ot 787.01 08/15/2014 ALYSSA DOMINIQUE LESLYE L Ot V10.05 08/15/2014 LESLYE BLANCO Ot V58.69 08/18/2014 LIZBETH SOLIS, SHANTE A Ot 593.4 08/18/2014 LIZBETH SOLIS, SHANTE A Ot V72.84 08/18/2014 LIZBETH SOLIS, SHANTE A Ot 593.4 08/18/2014 LIZBETH SOLIS, SHANTE A Ot V74.8 08/18/2014 SANTOS SOLIS, ADOLPH Jon Ot 154.1 09/11/2014 Ot 276.8 09/11/2014 Ot 530.81 09/11/2014 Ot 536.3 09/11/2014 Ot 553.3 09/11/2014 Ot 787.01 09/11/2014 Ot 787.91 09/11/2014 Ot 789.00 09/11/2014 Ot 791.9 09/11/2014 Ot V10.06 10/08/2014 JANINE HERNDON MD Ot 154.1 MALIGNANT NEOPL RECTUM 10/08/2014 JANINE HERNDON MD Ot 276.8 HYPOPOTASSEMIA 10/08/2014 JANINE HERNDON MD Ot 338.3 NEOPLASM RELATED PAIN (ACUTE)(CHRONIC) 10/08/2014 JANINE HERNDON MD Ot 401.9 HYPERTENSION NOS 10/08/2014 JANINE HERNDON MD Ot 536.3 GASTROPARESIS 10/08/2014 JANINE HERNDON MD Ot 791.9 ABN URINE FINDINGS NEC 10/08/2014 JANINE HERNDON MD Ot V13.02 PERSONAL HISTORY, URINARY (TRACT) INFECT 10/08/2014 JANINE HERNDON MD Ot V44.6 URINOSTOMY STATUS NEC 10/10/2014 LINDA CASAS DO Ot 787.01 NAUSEA WITH VOMITING 10/10/2014 LINDA CASAS DO Ot 789.00 ABDOMINAL PAIN, UNSPECIFIED SITE 10/12/2014 SHAY ALFONSO MD Ot 276.8 HYPOPOTASSEMIA 10/12/2014 SHAY ALFONSO MD Ot 401.9 HYPERTENSION NOS 10/12/2014 SHAY ALFONSO MD Ot 787.01 NAUSEA WITH VOMITING 10/12/2014 NATY SOLIS, SHAY Lester Ot 789.09 ABDOMINAL PAIN, OTHER SPECIFIED SITE 10/18/2014 NATY SOLIS, SHAY Lester Ot V55.3 ATTEN TO COLOSTOMY 03/26/2015 CLAUDIA SOLIS, WAYLON Mathis Ot 787.01 NAUSEA WITH VOMITING 03/26/2015 CLAUDIA SOLIS, WAYLON Mathis Ot 789.09 ABDOMINAL PAIN, OTHER SPECIFIED SITE 03/26/2015 LIZBETH SOLIS, SHANTE A Ot 154.1 03/26/2015 LIZBETH SOLIS, SHANTE A Ot 571.8 03/26/2015 LIZBETH SOLIS, SHANTE A Ot 591 03/26/2015 SANTOS SOLIS, ADOLPH Jon Ot 154.1 03/26/2015 SANTOS SOLIS, ADOLPH M Ot V72.63 03/26/2015 SANTOS SOLIS, ADOLPH M Ot V74.8 03/26/2015 TED PA MEDICAL OFFICE COORDINATOR Ot 154.1 03/26/2015 TED PA MEDICAL OFFICE COORDINATOR Ot 280.9 03/26/2015 TED PA S MEDICAL OFFICE COORDINATOR Ot 311 03/26/2015 TED PA S MEDICAL OFFICE COORDINATOR Ot 530.81 03/26/2015 TED PA S MEDICAL OFFICE COORDINATOR Ot 536.3 03/26/2015 TDE PA S MEDICAL OFFICE COORDINATOR Ot 607.84 03/26/2015 TED PA S MEDICAL OFFICE COORDINATOR Ot V58.69 03/26/2015 TED PA MEDICAL OFFICE COORDINATOR Ot 154.1 03/26/2015 TED PA S MEDICAL OFFICE COORDINATOR Ot 280.9 03/26/2015 TED PA S MEDICAL OFFICE COORDINATOR Ot 311 03/26/2015 TED PA S MEDICAL OFFICE COORDINATOR Ot 530.81 03/26/2015 TED PA S MEDICAL OFFICE COORDINATOR Ot 536.3 03/26/2015 TED PA S MEDICAL OFFICE COORDINATOR Ot 607.84 03/26/2015 TED PA S MEDICAL OFFICE COORDINATOR Ot V58.69 03/26/2015 VIRAJ SOLIS, ROXI Oseguera Ot 154.1 03/26/2015 VIRAJ SOLIS, ROXI Oseguera Ot 154.1 03/29/2015 KATRINA SOLIS, JANINE Arriola Ot 154.1 MALIGNANT NEOPL RECTUM 03/29/2015 JANINE HERNDON MD Ot 275.2 DIS MAGNESIUM METABOLISM 03/29/2015 JANINE HERNDON MD Ot 276.8 HYPOPOTASSEMIA 03/29/2015 JANINE HERNDON MD Ot 401.9 HYPERTENSION NOS 03/29/2015 JANINE HERNDON MD Ot 536.3 GASTROPARESIS 03/29/2015 JANINE HERNDON MD Ot 553.3 DIAPHRAGMATIC HERNIA 03/29/2015 JANINE HERNDON MD Ot 584.9 ACUTE RENAL FAILURE, UNSPECIFIED 03/29/2015 JANINE HERNDON MD Ot 596.54 NEUROGENIC BLADDER, NOT OTHERWISE SPECIF 03/29/2015 JANINE HERNDON MD Ot C20 MALIGNANT NEOPLASM OF RECTUM 03/29/2015 JANINE HERNDON MD Ot E87.6 HYPOKALEMIA 03/29/2015 JNAINE HERNDON MD Ot I10 ESSENTIAL (PRIMARY) HYPERTENSION 03/29/2015 JANINE HERNDON MD Ot K31.84 GASTROPARESIS 03/29/2015 JANINE HERNDON MD Ot K44.9 DIAPHRAGMATIC HERNIA WITHOUT OBSTRUCTION 03/29/2015 JANINE HERNDON MD Ot N17.9 ACUTE KIDNEY FAILURE, UNSPECIFIED 03/29/2015 JANINE HERNDON MD Ot N31.9 NEUROMUSCULAR DYSFUNCTION OF BLADDER, UN 03/29/2015 JANINE HERNDON MD Ot V15.81 HX OF PAST NONCOMPLIANCE 03/29/2015 JANINE HERNDON MD Ot V58.69 OT MED,LT,CURRENT USE 03/29/2015 JANINE HERNDON MD Ot Z91.19 PATIENT'S NONCOMPLIANCE W OT MEDICAL TR 03/29/2015 JANINE HERNDON MD Ot 154.1 03/29/2015 JANINE HERNDON MD Ot 275.2 03/29/2015 JANINE HERNDON MD Ot 276.8 03/29/2015 JANINE HERNDON MD Ot 401.9 03/29/2015 JANINE HERNDON MD Ot 536.3 03/29/2015 JANINE HERNDON MD Ot 553.3 03/29/2015 JANINE HERNDON MD Ot 584.9 03/29/2015 JANINE HERNDON MD Ot 596.54 03/29/2015 JANINE HERNDON MD Ot V15.81 03/29/2015 JANINE HERNDON MD Ot V58.69 05/11/2015 LIDNA CASAS DO Ot K76.0 FATTY (CHANGE OF) LIVER, NOT ELSEWHERE C 05/11/2015 LINDA CASAS DO Ot R11.2 NAUSEA WITH VOMITING, UNSPECIFIED 05/11/2015 LINDA CASAS DO Ot R19.7 DIARRHEA, UNSPECIFIED 05/11/2015 LINDA CASAS DO Ot Z85.048 PRSNL HX OF MALIG NEOPLM OF RECTUM, RECT 05/11/2015 LINDA CASAS DO Ot Z93.2 ILEOSTOMY STATUS 05/27/2015 WAYLON TAYLOR MD Ot G43.A0 CYCLICAL VOMITING, NOT INTRACTABLE 05/27/2015 WAYLON TAYLOR MD Ot G89.29 OTHER CHRONIC PAIN 05/27/2015 WAYLON TAYLOR MD Ot R10.30 LOWER ABDOMINAL PAIN, UNSPECIFIED 05/27/2015 WAYLON TAYLOR MD Ot Z93.2 ILEOSTOMY STATUS 08/30/2015 WAYLON TAYLOR MD Ot G89.29 OTHER CHRONIC PAIN 08/30/2015 WAYLON TAYLOR MD Ot R10.30 LOWER ABDOMINAL PAIN, UNSPECIFIED 08/30/2015 WAYLON TAYLOR MD Ot R11.2 NAUSEA WITH VOMITING, UNSPECIFIED 08/30/2015 WAYLON TAYLOR MD Ot R19.7 DIARRHEA, UNSPECIFIED 08/30/2015 WAYLON TAYLOR MD Ot Z85.048 PRSNL HX OF MALIG NEOPLM OF RECTUM, RECT 08/30/2015 WAYLON TAYLOR MD Ot Z93.2 ILEOSTOMY STATUS 11/10/2015 LIZBETH SOLIS, SHANTE Peña Ot 154.1 MALIGNANT NEOPL RECTUM 11/10/2015 SHANTE NIEVES MD Ot 571.8 CHRONIC LIVER DIS NEC 11/10/2015 SHANTE NIEVES MD Ot 591 HYDRONEPHROSIS 11/10/2015 ADOLPH GRAHAM MD Ot 154.1 MALIGNANT NEOPL RECTUM 11/10/2015 ADOLPH GRAHAM MD Ot V72.63 PRE-PROCEDURAL LABORATORY EXAMINATION 11/10/2015 SANTOS SOLIS, ADOLPH oJn Ot V74.8 SCREEN-BACTERIAL DIS NEC 11/10/2015 PA TED S MEDICAL OFFICE COORDINATOR Ot 154.1 MALIGNANT NEOPL RECTUM 11/10/2015 PA, HILAH S MEDICAL OFFICE COORDINATOR Ot 280.9 IRON DEFIC ANEMIA NOS 11/10/2015 PA HILAH S MEDICAL OFFICE COORDINATOR Ot 311 DEPRESSIVE DISORDER NEC 11/10/2015 PA HILAH S MEDICAL OFFICE COORDINATOR Ot 530.81 ESOPHAGEAL REFLUX 11/10/2015 PA TED S MEDICAL OFFICE COORDINATOR Ot 536.3 GASTROPARESIS 11/10/2015 PA, CRISTOAH S MEDICAL OFFICE COORDINATOR Ot 607.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, ORGANIC ORIGN 11/10/2015 PA HILAH S MEDICAL OFFICE COORDINATOR Ot V58.69 OTH MED,LT,CURRENT USE 11/10/2015 PA TED S MEDICAL OFFICE COORDINATOR Ot 154.1 MALIGNANT NEOPL RECTUM 11/10/2015 PA TED S MEDICAL OFFICE COORDINATOR Ot 280.9 IRON DEFIC ANEMIA NOS 11/10/2015 PA HILAH S MEDICAL OFFICE COORDINATOR Ot 311 DEPRESSIVE DISORDER NEC 11/10/2015 PA TED S MEDICAL OFFICE COORDINATOR Ot 530.81 ESOPHAGEAL REFLUX 11/10/2015 PA, TED S MEDICAL OFFICE COORDINATOR Ot 536.3 GASTROPARESIS 11/10/2015 PA, TED S MEDICAL OFFICE COORDINATOR Ot 607.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, ORGANIC ORIGN 11/10/2015 THIERNO TED S MEDICAL OFFICE COORDINATOR Ot V58.69 OTH MED,LT,CURRENT USE 11/10/2015 VIRAJ SOLIS, ROXI Oseguera Ot 154.1 MALIGNANT NEOPL RECTUM 11/10/2015 ROXI CALI MD Ot 154.1 MALIGNANT NEOPL RECTUM 11/10/2015 LINDA CASAS DO Ot E86.0 DEHYDRATION 11/10/2015 LINDA CASAS DO Ot E87.6 HYPOKALEMIA 11/10/2015 LINDA CASAS DO Ot G89.29 OTHER CHRONIC PAIN 11/10/2015 LINDA CASAS DO Ot R10.84 GENERALIZED ABDOMINAL PAIN 11/10/2015 LINDA CASAS DO Ot R11.2 NAUSEA WITH VOMITING, UNSPECIFIED 11/10/2015 LINDA CASAS DO Ot R19.7 DIARRHEA, UNSPECIFIED 11/10/2015 LINDA CASAS DO Ot Z85.048 PRSNL HX OF MALIG NEOPLM OF RECTUM, RECT 11/10/2015 AUGUSTO LINDA DICKSON Ot Z93.2 ILEOSTOMY STATUS 11/11/2015 INEZ DO, JOSE ANTONIO K Ot G89.29 OTHER CHRONIC PAIN 11/11/2015 INEZ DO, JOSE ANTONIO K Ot K76.0 FATTY (CHANGE OF) LIVER, NOT ELSEWHERE C 11/11/2015 INEZ DO, JOSE ANTONIO K Ot R10.84 GENERALIZED ABDOMINAL PAIN 11/11/2015 INEZ DO, JOSE ANTONIO K Ot R11.2 NAUSEA WITH VOMITING, UNSPECIFIED 11/11/2015 INEZ DO, JOSE ANTONIO K Ot Z85.048 PRSNL HX OF MALIG NEOPLM OF RECTUM, RECT 11/11/2015 INEZ DO, JOSE ANTONIO K Ot Z93.2 ILEOSTOMY STATUS 11/11/2015 INEZ , JOSE ANTONIO K Ot Z98.0 INTESTINAL BYPASS AND ANASTOMOSIS STATUS 11/12/2015 AUGUSTO LINDA DICKSON Ot E86.0 DEHYDRATION 11/12/2015 AUGUSTO LINDA DICKSON Ot E87.6 HYPOKALEMIA 11/12/2015 AUGUSTO LINDA DICKSON Ot G89.29 OTHER CHRONIC PAIN 11/12/2015 AUGUSTO LINDA DICKSON Ot R10.84 GENERALIZED ABDOMINAL PAIN 11/12/2015 AUGUSTO LINDA DICKSON Ot R11.2 NAUSEA WITH VOMITING, UNSPECIFIED 11/12/2015 AUGUSTO LINDA DICKSON Ot R19.7 DIARRHEA, UNSPECIFIED 11/12/2015 AUGUSTO DICKSONLINDA Ot Z85.048 PRSNL HX OF MALIG NEOPLM OF RECTUM, RECT 11/12/2015 AUGUSTO LINDA DICKSON Ot Z93.2 ILEOSTOMY STATUS 11/12/2015 INEZ DICKSON, JOSE ANTONIO K Ot G89.29 OTHER CHRONIC PAIN 11/12/2015 INEZ DO, JOSE ANTONIO K Ot K76.0 FATTY (CHANGE OF) LIVER, NOT ELSEWHERE C 11/12/2015 INEZ DO, JOSE ANTONIO K Ot R10.84 GENERALIZED ABDOMINAL PAIN 11/12/2015 INEZ DO, JOSE ANTONIO K Ot R11.2 NAUSEA WITH VOMITING, UNSPECIFIED 11/12/2015 INEZ DO, JOSE ANTONIO K Ot Z85.048 PRSNL HX OF MALIG NEOPLM OF RECTUM, RECT 11/12/2015 INEZ DO, JOSE ANTONIO K Ot Z93.2 ILEOSTOMY STATUS 11/12/2015 JOSE ANTONIO WILEY DO Ot Z98.0 INTESTINAL BYPASS AND ANASTOMOSIS STATUS 12/08/2015 CLAUDIA SOLIS, WAYLON Mathis Ot R11.2 NAUSEA WITH VOMITING, UNSPECIFIED 12/08/2015 WAYLON TAYLOR MD Ot R19.7 DIARRHEA, UNSPECIFIED 12/08/2015 WAYLON TAYLOR MD, Ot Z93.2 ILEOSTOMY STATUS 12/08/2015 WAYLON TAYLOR MD, Ot R11.2 NAUSEA WITH VOMITING, UNSPECIFIED 12/28/2015 NATY SOLIS, SHAY T Ot N39.0 URINARY TRACT INFECTION, SITE NOT SPECIF 12/28/2015 SHAY ALFONSO MD T Ot R10.84 GENERALIZED ABDOMINAL PAIN 12/28/2015 SHAY ALFONSO MD T Ot R11.2 NAUSEA WITH VOMITING, UNSPECIFIED 12/30/2015 SHAY ALFONSO MD T Ot N39.0 URINARY TRACT INFECTION, SITE NOT SPECIF 12/30/2015 SHAY ALFONSO MD T Ot R10.84 GENERALIZED ABDOMINAL PAIN 12/30/2015 SHAY ALOFNSO MD T Ot R11.2 NAUSEA WITH VOMITING, UNSPECIFIED 12/31/2015 SHAY ALFONSO MD T Ot N39.0 URINARY TRACT INFECTION, SITE NOT SPECIF 12/31/2015 SHAY ALFONSO MD T Ot R10.84 GENERALIZED ABDOMINAL PAIN 12/31/2015 SHAY ALFONSO MD T Ot R11.2 NAUSEA WITH VOMITING, UNSPECIFIED 02/28/2016 LINDA CASAS DO Ot N39.0 URINARY TRACT INFECTION, SITE NOT SPECIF 02/28/2016 LINDA CASAS DO Ot R10.30 LOWER ABDOMINAL PAIN, UNSPECIFIED 02/28/2016 LINAD CASAS DO Ot R11.2 NAUSEA WITH VOMITING, UNSPECIFIED 02/28/2016 LINDA CASAS DO Ot 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 03/01/2016 SANTOS SOLIS, ADOLPH Jon Ot V72.84 EXAM PRE-OPERATIVE NOS 03/01/2016 SANTOS SOLIS, ADOLPH Jon Ot 153.9 MALIGNANT LOI COLON NOS 03/01/2016 SANTOS SOLIS, ADOLPH Jon Ot V72.81 [id number] CARDIOVASCULAR 03/01/2016 SANTOS SOLIS, ADOLPH Jon Ot V74.8 SCREEN-BACTERIAL DIS NEC 03/01/2016 LINDA BENTLEY Ot 591 HYDRONEPHROSIS 03/01/2016 LINDA BENTLEY Ot 789.05 ABDOMINAL PAIN, PERIUMBILIC 03/01/2016 CLAUDE SOLIS, RIVER Fenton Ot 788.1 DYSURIA 03/01/2016 ROXI CALI MD Ot 154.1 MALIGNANT NEOPL RECTUM 03/01/2016 ROXI CALI MD Ot 280.9 IRON DEFIC ANEMIA NOS 03/01/2016 ROXI CALI MD Ot 311 DEPRESSIVE DISORDER NEC 03/01/2016 ROXI CALI MD Ot 780.52 INSOMNIA, UNSPECIFIED 03/01/2016 ROXI CALI MD Ot 788.38 OVERFLOW INCONTINENCE 03/01/2016 ROXI CALI MD Ot V15.3 HX OF IRRADIATION 03/01/2016 ROXI CALI MD Ot V58.69 OTH MED,LT,CURRENT USE 03/01/2016 ROXI CALI MD Ot V87.41 PERSONAL HISTORY OF ANTINEOPLASTIC CHEMO 03/01/2016 ROXI CALI MD Ot 154.1 MALIGNANT NEOPL RECTUM 03/01/2016 ROXI CALI MD Ot 280.9 IRON DEFIC ANEMIA NOS 03/01/2016 ROXI CALI MD Ot 311 DEPRESSIVE DISORDER NEC 03/01/2016 ROXI CALI MD Ot 780.52 INSOMNIA, UNSPECIFIED 03/01/2016 ROXI CALI MD Ot 788.38 OVERFLOW INCONTINENCE 03/01/2016 ROXI CALI MD Ot V15.3 HX OF IRRADIATION 03/01/2016 ROXI CALI MD Ot V58.69 OTH MED,LT,CURRENT USE 03/01/2016 ROXI CALI MD Ot V87.41 PERSONAL HISTORY OF ANTINEOPLASTIC CHEMO 03/02/2016 LINDA CASAS DO Ot N39.0 URINARY TRACT INFECTION, SITE NOT SPECIF 03/02/2016 LINDA CASAS DO Ot R10.30 LOWER ABDOMINAL PAIN, UNSPECIFIED 03/02/2016 LINDA CASAS DO Ot R11.2 NAUSEA WITH VOMITING, UNSPECIFIED 03/02/2016 LINDA CASAS DO Ot 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 03/03/2016 ROXI CALI MD Ot 154.1 MALIGNANT NEOPL RECTUM 03/03/2016 ROXI CALI MD Ot 280.9 IRON DEFIC ANEMIA NOS 03/03/2016 ROXI CALI MD Ot 311 DEPRESSIVE DISORDER NEC 03/03/2016 ROXI CALI MD Ot 780.52 INSOMNIA, UNSPECIFIED 03/03/2016 ROXI CALI MD Ot 788.38 OVERFLOW INCONTINENCE 03/03/2016 ROXI CALI MD Ot V15.3 HX OF IRRADIATION 03/03/2016 ROXI CALI MD Ot V58.69 OTH MED,LT,CURRENT USE 03/03/2016 ROXI CALI MD Ot V87.41 PERSONAL HISTORY OF ANTINEOPLASTIC CHEMO 03/03/2016 SANTOS SOLIS, ADOLPH Jon Ot V72.84 EXAM PRE-OPERATIVE NOS 03/03/2016 ADOLPH GRAHAM MD Ot 153.9 MALIGNANT LOI COLON NOS 03/03/2016 ADOLPH GRAHAM MD Ot V72.81 [id number] CARDIOVASCULAR 03/03/2016 ADOLPH GRAHAM MD Ot V74.8 SCREEN-BACTERIAL DIS NEC 03/03/2016 LINDA BENTLEY MEDICAL OFFICE COORDINATOR Ot 591 HYDRONEPHROSIS 03/03/2016 LINDA BENTLEY MEDICAL OFFICE COORDINATOR Ot 789.05 ABDOMINAL PAIN, PERIUMBILIC 03/03/2016 CLAUDE SOLIS, RIVER Fenton Ot 788.1 DYSURIA 03/03/2016 ROXI CALI MD Ot 154.1 MALIGNANT NEOPL RECTUM 03/03/2016 ROXI CALI MD Ot 280.9 IRON DEFIC ANEMIA NOS 03/03/2016 ROXI CALI MD Ot 311 DEPRESSIVE DISORDER NEC 03/03/2016 ROXI CALI MD Ot 780.52 INSOMNIA, UNSPECIFIED 03/03/2016 ROXI CALI MD Ot 788.38 OVERFLOW INCONTINENCE 03/03/2016 ROXI CALI MD Ot V15.3 HX OF IRRADIATION 03/03/2016 ROXI CALI MD Ot V58.69 OTH MED,LT,CURRENT USE 03/03/2016 ROXI CALI MD Ot V87.41 PERSONAL HISTORY OF ANTINEOPLASTIC CHEMO 03/10/2016 ROXI CALI MD Ot 154.1 MALIGNANT NEOPL RECTUM 03/10/2016 ROXI CALI MD Ot 280.9 IRON DEFIC ANEMIA NOS 03/10/2016 ROXI CALI MD Ot 311 DEPRESSIVE DISORDER NEC 03/10/2016 ROXI CALI MD Ot 780.52 INSOMNIA, UNSPECIFIED 03/10/2016 ROXI CALI MD Ot 788.38 OVERFLOW INCONTINENCE 03/10/2016 VIRAJ SOLIS, ROXI Ana Rosa Ot V15.3 HX OF IRRADIATION 03/10/2016 VIRAJ SOLIS, ROXI Ana Rosa Ot V58.69 OTH MED,LT,CURRENT USE 03/10/2016 VIRAJ SOLIS, ROXI Ana Rosa Ot V87.41 PERSONAL HISTORY OF ANTINEOPLASTIC CHEMO 03/11/2016 VIRAJ SOLIS, ROXI Ana Rosa Ot 154.1 03/11/2016 VIRAJ SOLIS, ROXI Ana Rosa Ot 280.9 03/11/2016 VIRAJ SOLIS, ROXI Oseguera Ot 311 03/11/2016 VIRAJ SOLIS, ROXI Ana Rosa Ot 780.52 03/11/2016 VIRAJ SOLIS, ROXI Ana Rosa Ot 788.38 03/11/2016 VIRAJ SOLIS, ROXI Ana Rosa Ot V15.3 PRSN BRD/ALIT PEDL CYC INJURED IN [place] 03/11/2016 VIRAJ SOLIS, ROXI Ana Rosa Ot V58.69 03/11/2016 VIRAJ SOLIS, ROXI Ana Rosa Ot V87.41 03/15/2016 LIZBETH SOLIS, SHANTE Peña Ot 154.1 MALIGNANT NEOPL RECTUM 03/15/2016 LIZBETH SOLIS, SHANTE Peña Ot 571.8 CHRONIC LIVER DIS NEC 03/15/2016 LIZBETH SOLIS, SHANTE A Ot 591 HYDRONEPHROSIS 03/15/2016 SANTOS SOLIS, ADOLPH oJn Ot 154.1 MALIGNANT NEOPL RECTUM 03/15/2016 SANTOS SOLIS, ADOLPH Jon Ot V72.63 PRE-PROCEDURAL LABORATORY EXAMINATION 03/15/2016 SANTOS SOLIS, ADOLPH Jon Ot V74.8 SCREEN-BACTERIAL DIS NEC 03/15/2016 TED PA MEDICAL OFFICE COORDINATOR Ot 154.1 MALIGNANT NEOPL RECTUM 03/15/2016 TED PA MEDICAL OFFICE COORDINATOR Ot 280.9 IRON DEFIC ANEMIA NOS 03/15/2016 TED PA MEDICAL OFFICE COORDINATOR Ot 311 DEPRESSIVE DISORDER NEC 03/15/2016 TED PA MEDICAL OFFICE COORDINATOR Ot 530.81 ESOPHAGEAL REFLUX 03/15/2016 TED PA MEDICAL OFFICE COORDINATOR Ot 536.3 GASTROPARESIS 03/15/2016 TED PA MEDICAL OFFICE COORDINATOR Ot 607.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, ORGANIC ORIGN 03/15/2016 TED PAP Ot V58.69 OTH MED,LT,CURRENT USE 03/15/2016 TED PA MEDICAL OFFICE COORDINATOR Ot 154.1 MALIGNANT NEOPL RECTUM 03/15/2016 TED PA MEDICAL OFFICE COORDINATOR Ot 280.9 IRON DEFIC ANEMIA NOS 03/15/2016 CRISTO PAMIGUEL A Juan MEDICAL OFFICE COORDINATOR Ot 311 DEPRESSIVE DISORDER NEC 03/15/2016 CRISTO PAMIGUEL A Juan MEDICAL OFFICE COORDINATOR Ot 530.81 ESOPHAGEAL REFLUX 03/15/2016 THIERNO TED Juan MEDICAL OFFICE COORDINATOR Ot 536.3 GASTROPARESIS 03/15/2016 THIERNO TED Juan MEDICAL OFFICE COORDINATOR Ot 607.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, ORGANIC ORIGN 03/15/2016 PATED Juan MEDICAL OFFICE COORDINATOR Ot V58.69 OTH MED,LT,CURRENT USE 03/15/2016 VIRAJ SOLIS, ROXI Ana Rosa Ot 154.1 MALIGNANT NEOPL RECTUM 03/15/2016 VIRAJ SLOIS, ROXI Oseguera Ot 154.1 MALIGNANT NEOPL RECTUM 03/16/2016 VIRAJ SOLIS, ROXI Oseguera Ot C20 MALIGNANT NEOPLASM OF RECTUM 03/28/2016 VIRAJ SOLIS, ROXI Oseguera Ot C20 MALIGNANT NEOPLASM OF RECTUM 03/28/2016 VIRAJ SOLIS, ROXI Oseguera Ot D50.9 IRON DEFICIENCY ANEMIA, UNSPECIFIED 03/28/2016 VIRAJ SOLIS, ROXI Oseguera Ot F33.9 MAJOR DEPRESSIVE DISORDER, RECURRENT, UN 03/28/2016 VIRAJ SOLIS, ROXI Oseguera Ot G47.00 INSOMNIA, UNSPECIFIED 03/28/2016 VIRAJ SOLIS, ROXI Oseguera Ot N39.490 OVERFLOW INCONTINENCE 03/28/2016 VIRAJ SOLIS, ROXI Ana Rosa Ot 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 03/28/2016 VIRAJ SOLIS, ROXI Ana Rosa Ot Z92.3 PERSONAL HISTORY OF IRRADIATION 04/06/2016 VIRAJ SOLIS, ROXI Oseguera Ot C20 MALIGNANT NEOPLASM OF RECTUM 04/14/2016 LIZBETH SOLIS, SHANTE Peña Ot 154.1 MALIGNANT NEOPL RECTUM 04/14/2016 LIZBETH SOLIS, SHANTE Peña Ot 571.8 CHRONIC LIVER DIS NEC 04/14/2016 SHANTE NIEVES MD Ot 591 HYDRONEPHROSIS 04/14/2016 SANTOS SOLIS, ADOLPH Jon Ot 154.1 MALIGNANT NEOPL RECTUM 04/14/2016 SANTOS SOLIS, ADOLPH Jon Ot V72.63 PRE-PROCEDURAL LABORATORY EXAMINATION 04/14/2016 SANTOS SOLIS, ADOLPH Jon Ot V74.8 SCREEN-BACTERIAL DIS NEC 04/14/2016 TED PA MEDICAL OFFICE COORDINATOR Ot 154.1 MALIGNANT NEOPL RECTUM 04/14/2016 CRISTO PAMIGUEL A Drake MEDICAL OFFICE COORDINATOR Ot 280.9 IRON DEFIC ANEMIA NOS 04/14/2016 TED PA MEDICAL OFFICE COORDINATOR Ot 311 DEPRESSIVE DISORDER NEC 04/14/2016 TED PA MEDICAL OFFICE COORDINATOR Ot 530.81 ESOPHAGEAL REFLUX 04/14/2016 TED PA MEDICAL OFFICE COORDINATOR Ot 536.3 GASTROPARESIS 04/14/2016 TED PA MEDICAL OFFICE COORDINATOR Ot 607.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, ORGANIC ORIGN 04/14/2016 TED PA MEDICAL OFFICE COORDINATOR Ot V58.69 OTH MED,LT,CURRENT USE 04/14/2016 TED PA MEDICAL OFFICE COORDINATOR Ot 154.1 MALIGNANT NEOPL RECTUM 04/14/2016 TED PA MEDICAL OFFICE COORDINATOR Ot 280.9 IRON DEFIC ANEMIA NOS 04/14/2016 PATED Juan MEDICAL OFFICE COORDINATOR Ot 311 DEPRESSIVE DISORDER NEC 04/14/2016 TED PA MEDICAL OFFICE COORDINATOR Ot 530.81 ESOPHAGEAL REFLUX 04/14/2016 TED PA MEDICAL OFFICE COORDINATOR Ot 536.3 GASTROPARESIS 04/14/2016 PATED Juan MEDICAL OFFICE COORDINATOR Ot 607.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, ORGANIC ORIGN 04/14/2016 TED PA MEDICAL OFFICE COORDINATOR Ot V58.69 OTH MED,LT,CURRENT USE 04/14/2016 ROXI CALI MD Ot 154.1 MALIGNANT NEOPL RECTUM 04/14/2016 ROXI CALI MD Ot 154.1 MALIGNANT NEOPL RECTUM 04/14/2016 ROXI CALI MD, Ot C20 MALIGNANT NEOPLASM OF RECTUM 04/14/2016 ROXI CALI MD, Ot D50.9 IRON DEFICIENCY ANEMIA, UNSPECIFIED 04/14/2016 ROXI CALI MD, Ot F33.9 MAJOR DEPRESSIVE DISORDER, RECURRENT, UN 04/14/2016 ROXI CALI MD Ot G47.00 INSOMNIA, UNSPECIFIED 04/14/2016 ROXI CALI MD Ot N39.490 OVERFLOW INCONTINENCE 04/14/2016 ROXI CALI MD Ot Z79.899 OTHER [facility] (CURRENT) DRUG THERAPY 04/14/2016 ROXI CALI MD Ot Z92.3 PERSONAL HISTORY OF IRRADIATION 04/14/2016 ROXI CALI MD Ot C20 MALIGNANT NEOPLASM OF RECTUM 04/18/2016 ROXI CALI MD, Ot C20 MALIGNANT NEOPLASM OF RECTUM 04/18/2016 ROXI CALI MD, Ot D50.9 IRON DEFICIENCY ANEMIA, UNSPECIFIED 04/18/2016 ROXI CALI MD, Ot F33.9 MAJOR DEPRESSIVE DISORDER, RECURRENT, UN 04/18/2016 ROXI CALI MD, Ot G47.00 INSOMNIA, UNSPECIFIED 04/18/2016 ROXI CALI MD, Ot N39.490 OVERFLOW INCONTINENCE 04/18/2016 ROXI CALI MD, Ot Z79.899 OTHER [facility] (CURRENT) DRUG THERAPY 04/18/2016 ROXI CALI MD Ot Z92.3 PERSONAL HISTORY OF IRRADIATION 04/20/2016 ROXI CALI MD, Ot C20 MALIGNANT NEOPLASM OF RECTUM 05/17/2016 ROXI CALI MD, Ot C20 MALIGNANT NEOPLASM OF RECTUM 05/17/2016 ROXI CALI MD, Ot D50.9 IRON DEFICIENCY ANEMIA, UNSPECIFIED 05/17/2016 ROXI CALI MD, Ot F33.9 MAJOR DEPRESSIVE DISORDER, RECURRENT, UN 05/17/2016 ROXI CALI MD, Ot G47.00 INSOMNIA, UNSPECIFIED 05/17/2016 ROXI CALI MD, Ot N39.490 OVERFLOW INCONTINENCE 05/17/2016 ROXI CALI MD, Ot Z79.899 OTHER [facility] (CURRENT) DRUG THERAPY 05/17/2016 ROXI CALI MD, Ot Z92.3 PERSONAL HISTORY OF IRRADIATION 06/07/2016 ROXI CALI MD, Ot C20 MALIGNANT NEOPLASM OF RECTUM 06/07/2016 ROXI CALI MD, Ot D50.9 IRON DEFICIENCY ANEMIA, UNSPECIFIED 06/07/2016 ROXI CALI MD, Ot F33.9 MAJOR DEPRESSIVE DISORDER, RECURRENT, UN 06/07/2016 ROXI CALI MD, Ot G47.00 INSOMNIA, UNSPECIFIED 06/07/2016 ROXI CALI MD, Ot N39.490 OVERFLOW INCONTINENCE 06/07/2016 ROXI CALI MD, Ot 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 06/07/2016 ROXI CALI MD Ot Z92.3 PERSONAL HISTORY OF IRRADIATION 06/16/2016 ROXI CALI MD, Ot C20 MALIGNANT NEOPLASM OF RECTUM 06/16/2016 ROXI CALI MD, Ot D50.9 IRON DEFICIENCY ANEMIA, UNSPECIFIED 06/16/2016 ROXI CALI MD, Ot F33.9 MAJOR DEPRESSIVE DISORDER, RECURRENT, UN 06/16/2016 ROXI CALI MD, Ot G47.00 INSOMNIA, UNSPECIFIED 06/16/2016 ROXI CALI MD Ot N39.490 OVERFLOW INCONTINENCE 06/16/2016 ROXI CALI MD, Ot Z79.899 OTHER [facility] (CURRENT) DRUG THERAPY 06/16/2016 VIRAJ SOLIS, ROXI Oseguera Ot Z92.3 PERSONAL HISTORY OF IRRADIATION 08/13/2016 LIZBETH SOLIS, SHANTE Peña Ot 154.1 MALIGNANT NEOPL RECTUM 08/13/2016 LIZBETH SOLIS, SHANTE Peña Ot 571.8 CHRONIC LIVER DIS NEC 08/13/2016 LIZBETH SOLIS, SHANTE Peña Ot 591 HYDRONEPHROSIS 08/13/2016 SANTOS SOLIS, ADOLPH Jon Ot 154.1 MALIGNANT NEOPL RECTUM 08/13/2016 SANTOS SOLIS, ADOLPH Jon Ot V72.63 PRE-PROCEDURAL LABORATORY EXAMINATION 08/13/2016 SANTOS SOLIS, DAOLPH Jon Ot V74.8 SCREEN-BACTERIAL DIS NEC 08/13/2016 TED PA S MEDICAL OFFICE COORDINATOR Ot 154.1 MALIGNANT NEOPL RECTUM 08/13/2016 TED PA S MEDICAL OFFICE COORDINATOR Ot 280.9 IRON DEFIC ANEMIA NOS 08/13/2016 TED PA S MEDICAL OFFICE COORDINATOR Ot 311 DEPRESSIVE DISORDER NEC 08/13/2016 TED PA S MEDICAL OFFICE COORDINATOR Ot 530.81 ESOPHAGEAL REFLUX 08/13/2016 TED PA S MEDICAL OFFICE COORDINATOR Ot 536.3 GASTROPARESIS 08/13/2016 TED PA S MEDICAL OFFICE COORDINATOR Ot 607.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, ORGANIC ORIGN 08/13/2016 TED PA S MEDICAL OFFICE COORDINATOR Ot V58.69 OTH MED,LT,CURRENT USE 08/13/2016 TED PA S MEDICAL OFFICE COORDINATOR Ot 154.1 MALIGNANT NEOPL RECTUM 08/13/2016 TED PA S MEDICAL OFFICE COORDINATOR Ot 280.9 IRON DEFIC ANEMIA NOS 08/13/2016 CRISTO PAAH S MEDICAL OFFICE COORDINATOR Ot 311 DEPRESSIVE DISORDER NEC 08/13/2016 TED PA S MEDICAL OFFICE COORDINATOR Ot 530.81 ESOPHAGEAL REFLUX 08/13/2016 PATED Juan S MEDICAL OFFICE COORDINATOR Ot 536.3 GASTROPARESIS 08/13/2016 PATED Juan S MEDICAL OFFICE COORDINATOR Ot 607.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, ORGANIC ORIGN 08/13/2016 TED PA S MEDICAL OFFICE COORDINATOR Ot V58.69 OTH MED,LT,CURRENT USE 08/13/2016 VIRAJ SOLIS, ROXI Oseguera Ot 154.1 MALIGNANT NEOPL RECTUM 08/13/2016 ROXI CALI MD Ot 154.1 MALIGNANT NEOPL RECTUM 08/13/2016 VIRAJ SOLIS, ROXI Oseguera Ot C20 MALIGNANT NEOPLASM OF RECTUM 08/13/2016 ROXI CALI MD Ot C20 MALIGNANT NEOPLASM OF RECTUM 08/13/2016 ROXI CALI MD Ot D50.9 IRON DEFICIENCY ANEMIA, UNSPECIFIED 08/13/2016 ROXI CALI MD, Ot F33.9 MAJOR DEPRESSIVE DISORDER, RECURRENT, UN 08/13/2016 ROXI CALI MD, Ot G47.00 INSOMNIA, UNSPECIFIED 08/13/2016 ROXI CALI MD Ot N39.490 OVERFLOW INCONTINENCE 08/13/2016 ROXI CALI MD Ot Z79.899 OTHER [facility] (CURRENT) DRUG THERAPY 08/13/2016 ROXI CALI MD Ot Z92.3 PERSONAL HISTORY OF IRRADIATION 08/14/2016 ROXI CALI MD, Ot C20 MALIGNANT NEOPLASM OF RECTUM 08/14/2016 ROXI CALI MD, Ot D50.9 IRON DEFICIENCY ANEMIA, UNSPECIFIED 08/14/2016 ROXI CALI MD, Ot F33.9 MAJOR DEPRESSIVE DISORDER, RECURRENT, UN 08/14/2016 ROXI CALI MD Ot G47.00 INSOMNIA, UNSPECIFIED 08/14/2016 ROXI CALI MD Ot N39.490 OVERFLOW INCONTINENCE 08/14/2016 ROXI CALI MD Ot 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 08/14/2016 ROXI CALI MD Ot Z92.3 PERSONAL HISTORY OF IRRADIATION 08/14/2016 NATY SOLIS, SHAY Lester Ot E87.6 HYPOKALEMIA 08/14/2016 NATY SOLIS, SHAY T Ot I10 ESSENTIAL (PRIMARY) HYPERTENSION 08/14/2016 NATY SOLIS, SHAY Lester Ot N39.0 URINARY TRACT INFECTION, SITE NOT SPECIF 08/14/2016 NATY SOLIS, SHAY Lester Ot R10.30 LOWER ABDOMINAL PAIN, UNSPECIFIED 08/14/2016 SHAY ALFONSO MD Ot R11.2 NAUSEA WITH VOMITING, UNSPECIFIED 08/14/2016 SHAY ALFONSO MD Ot R19.7 DIARRHEA, UNSPECIFIED 08/14/2016 SHAY ALFONSO MD Ot 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 08/14/2016 SHAY ALFONSO MD Ot Z85.048 PRSNL HX OF MALIG NEOPLM OF RECTUM , RECT 08/14/2016 SHAY ALFONSO MD T Ot 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 08/15/2016 SHAY ALFONSO MD Ot E87.6 HYPOKALEMIA 08/15/2016 SHAY ALFONSO MD Ot I10 ESSENTIAL (PRIMARY) HYPERTENSION 08/15/2016 SHAY ALFONSO MD Ot N39.0 URINARY TRACT INFECTION, SITE NOT SPECIF 08/15/2016 SHAY ALFONSO MD T Ot R10.30 LOWER ABDOMINAL PAIN, UNSPECIFIED 08/15/2016 SHAY ALFONSO MD Ot R11.2 NAUSEA WITH VOMITING, UNSPECIFIED 08/15/2016 SHAY ALFONSO MD Ot R19.7 DIARRHEA, UNSPECIFIED 08/15/2016 SHAY ALFONSO MD Ot 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 08/15/2016 SHAY ALFONSO MD Ot Z85.048 PRSNL HX OF MALIG NEOPLM OF RECTUM , RECT 08/15/2016 SHAY ALFONSO MD Ot 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 08/16/2016 SHAY ALFONSO MD Ot E87.6 HYPOKALEMIA 08/16/2016 SHAY ALFONSO MD Ot I10 ESSENTIAL (PRIMARY) HYPERTENSION 08/16/2016 SHAY ALFONSO MD Ot N39.0 URINARY TRACT INFECTION, SITE NOT SPECIF 08/16/2016 SHAY ALFONSO MD Ot R10.30 LOWER ABDOMINAL PAIN, UNSPECIFIED 08/16/2016 SHAY ALFONSO MD Ot R11.2 NAUSEA WITH VOMITING, UNSPECIFIED 08/16/2016 SHAY ALFONSO MD Ot R19.7 DIARRHEA, UNSPECIFIED 08/16/2016 SHAY ALFONSO MD T Ot 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 08/16/2016 SHAY ALFONSO MD T Ot Z85.048 PRSNL HX OF MALIG NEOPLM OF RECTUM , RECT 08/16/2016 SHAY ALFONSO MD T Ot 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0 URINARY TRACT INFECTION, SITE NOT SPECIF 08/17/2016 SHAY ALFONSO MD Ot R10.30 LOWER ABDOMINAL PAIN, UNSPECIFIED 08/17/2016 SHAY ALFONSO MD Ot R11.2 NAUSEA WITH VOMITING, UNSPECIFIED 08/17/2016 SHAY ALFONSO MD Ot R19.7 DIARRHEA, UNSPECIFIED 08/17/2016 SHAY ALFONSO MD Ot 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 08/17/2016 SHAY ALFONSO MD Ot Z85.048 PRSNL HX OF MALIG NEOPLM OF RECTUM , RECT 08/17/2016 SHAY ALFONSO MD Ot 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 08/19/2016 SHAY ALFONSO MD Ot E87.6 HYPOKALEMIA 08/19/2016 SHAY ALFONSO MD Ot I10 ESSENTIAL (PRIMARY) HYPERTENSION 08/19/2016 SHAY ALFONSO MD Ot N39.0 URINARY TRACT INFECTION, SITE NOT SPECIF 08/19/2016 SHAY ALFONSO MD Ot R10.30 LOWER ABDOMINAL PAIN, UNSPECIFIED 08/19/2016 SHAY ALFONSO MD Ot R11.2 NAUSEA WITH VOMITING, UNSPECIFIED 08/19/2016 NATY SOLIS, SHAY Lester Ot R19.7 DIARRHEA, UNSPECIFIED 08/19/2016 NATY SOLIS, SHAY Lester Ot 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 08/19/2016 NATY SOLIS, SHAY Lester Ot Z85.048 PRSNL HX OF MALIG NEOPLM OF RECTUM , RECT 08/19/2016 NATY SOLIS, SHAY Lester Ot 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 09/09/2016 VIRAJ SOLIS, ROXI Oseguera Ot C20 MALIGNANT NEOPLASM OF RECTUM 09/09/2016 VIRAJ SOLIS, ROXI Oseguera Ot D50.9 IRON DEFICIENCY ANEMIA, UNSPECIFIED 09/09/2016 ROXI CALI MD Ot F33.9 MAJOR DEPRESSIVE DISORDER, RECURRENT, UN 09/09/2016 ROXI CALI MD Ot G47.00 INSOMNIA, UNSPECIFIED 09/09/2016 ROXI CALI MD Ot N39.490 OVERFLOW INCONTINENCE 09/09/2016 ROXI CALI MD Ot Z79.899 OTHER [facility] (CURRENT) DRUG THERAPY 09/09/2016 ROXI CALI MD Ot Z92.3 PERSONAL HISTORY OF IRRADIATION 09/13/2016 ROXI CALI MD Ot C20 MALIGNANT NEOPLASM OF RECTUM 09/13/2016 ROXI CALI MD Ot D50.9 IRON DEFICIENCY ANEMIA, UNSPECIFIED 09/13/2016 ROXI CALI MD Ot F33.9 MAJOR DEPRESSIVE DISORDER, RECURRENT, UN 09/13/2016 ROXI CALI MD Ot G47.00 INSOMNIA, UNSPECIFIED 09/13/2016 ROXI CALI MD Ot N39.490 OVERFLOW INCONTINENCE 09/13/2016 ROXI CALI MD Ot Z79.899 OTHER [facility] (CURRENT) DRUG THERAPY 09/13/2016 ROXI CALI MD Ot Z92.3 PERSONAL HISTORY OF IRRADIATION 09/21/2016 SHANTE NIEVES MD Ot 154.1 MALIGNANT NEOPL RECTUM 09/21/2016 SHANTE NIEVES MD Ot 571.8 CHRONIC LIVER DIS NEC 09/21/2016 SHANTE NIEVES MD Ot 591 HYDRONEPHROSIS 09/21/2016 SANTOS SOLIS, ADOLPH Jon Ot 154.1 MALIGNANT NEOPL RECTUM 09/21/2016 SANTOS SOLIS, ADOLPH Jon Ot V72.63 PRE-PROCEDURAL LABORATORY EXAMINATION 09/21/2016 SANTOS SOLIS, ADOLPH Jon Ot V74.8 SCREEN-BACTERIAL DIS NEC 09/21/2016 TED PA S MEDICAL OFFICE COORDINATOR Ot 154.1 MALIGNANT NEOPL RECTUM 09/21/2016 PATED Juan S MEDICAL OFFICE COORDINATOR Ot 280.9 IRON DEFIC ANEMIA NOS 09/21/2016 TED PA S MEDICAL OFFICE COORDINATOR Ot 311 DEPRESSIVE DISORDER NEC 09/21/2016 PATED Juan S MEDICAL OFFICE COORDINATOR Ot 530.81 ESOPHAGEAL REFLUX 09/21/2016 TED PA S MEDICAL OFFICE COORDINATOR Ot 536.3 GASTROPARESIS 09/21/2016 TED PA S MEDICAL OFFICE COORDINATOR Ot 607.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, ORGANIC ORIGN 09/21/2016 PATED Juan S MEDICAL OFFICE COORDINATOR Ot V58.69 OTH MED,LT,CURRENT USE 09/21/2016 TED PA S MEDICAL OFFICE COORDINATOR Ot 154.1 MALIGNANT NEOPL RECTUM 09/21/2016 PATED Juan S MEDICAL OFFICE COORDINATOR Ot 280.9 IRON DEFIC ANEMIA NOS 09/21/2016 PATED Juan S MEDICAL OFFICE COORDINATOR Ot 311 DEPRESSIVE DISORDER NEC 09/21/2016 TED PA S MEDICAL OFFICE COORDINATOR Ot 530.81 ESOPHAGEAL REFLUX 09/21/2016 PATED Juan S MEDICAL OFFICE COORDINATOR Ot 536.3 GASTROPARESIS 09/21/2016 PATED Juan S MEDICAL OFFICE COORDINATOR Ot 607.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, ORGANIC ORIGN 09/21/2016 TED PA S MEDICAL OFFICE COORDINATOR Ot V58.69 OTH MED,LT,CURRENT USE 09/21/2016 VIRAJ SOLIS, ROXI Oseguera Ot 154.1 MALIGNANT NEOPL RECTUM 09/21/2016 VIRAJ SOLIS, ROXI Oseguera Ot 154.1 MALIGNANT NEOPL RECTUM 09/21/2016 ROXI CALI MD Ot C20 MALIGNANT NEOPLASM OF RECTUM 09/21/2016 ROXI CALI MD Ot C20 MALIGNANT NEOPLASM OF RECTUM 09/21/2016 ROXI CALI MD Ot D50.9 IRON DEFICIENCY ANEMIA, UNSPECIFIED 09/21/2016 ROXI CALI MD Ot F33.9 MAJOR DEPRESSIVE DISORDER, RECURRENT, UN 09/21/2016 VIRAJ SOLIS, ROXI Oseguera Ot G47.00 INSOMNIA, UNSPECIFIED 09/21/2016 ROXI CALI MD Ot N39.490 OVERFLOW INCONTINENCE 09/21/2016 VIRAJ SOLIS, ROXI Oseguera Ot Z79.899 OTHER [facility] (CURRENT) DRUG THERAPY 09/21/2016 VIRAJ SOLIS, ROXI Oseguera Ot Z92.3 PERSONAL HISTORY OF IRRADIATION 09/21/2016 LIZBETH SOLIS, SHANTE Peña Ot 154.1 MALIGNANT NEOPL RECTUM 09/21/2016 LIZBETH SOLIS, SHANTE Peña Ot 571.8 CHRONIC LIVER DIS NEC 09/21/2016 SHANTE NIEVES MD Ot 591 HYDRONEPHROSIS 09/21/2016 SANTOS SOLIS, ADOLPH Jon Ot 154.1 MALIGNANT NEOPL RECTUM 09/21/2016 SANTOS SOLIS, ADOLPH Jon Ot V72.63 PRE-PROCEDURAL LABORATORY EXAMINATION 09/21/2016 SANTOS SOLIS, ADOLPH Jon Ot V74.8 SCREEN-BACTERIAL DIS NEC 09/21/2016 TED PA S MEDICAL OFFICE COORDINATOR Ot 154.1 MALIGNANT NEOPL RECTUM 09/21/2016 TED PA S MEDICAL OFFICE COORDINATOR Ot 280.9 IRON DEFIC ANEMIA NOS 09/21/2016 TED PA S MEDICAL OFFICE COORDINATOR Ot 311 DEPRESSIVE DISORDER NEC 09/21/2016 TED PA S MEDICAL OFFICE COORDINATOR Ot 530.81 ESOPHAGEAL REFLUX 09/21/2016 TED PA S MEDICAL OFFICE COORDINATOR Ot 536.3 GASTROPARESIS 09/21/2016 TED PA S MEDICAL OFFICE COORDINATOR Ot 607.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, ORGANIC ORIGN 09/21/2016 TED PA S MEDICAL OFFICE COORDINATOR Ot V58.69 OTH MED,LT,CURRENT USE 09/21/2016 TED PA S MEDICAL OFFICE COORDINATOR Ot 154.1 MALIGNANT NEOPL RECTUM 09/21/2016 TED PA S MEDICAL OFFICE COORDINATOR Ot 280.9 IRON DEFIC ANEMIA NOS 09/21/2016 TED PA S MEDICAL OFFICE COORDINATOR Ot 311 DEPRESSIVE DISORDER NEC 09/21/2016 TED PA S MEDICAL OFFICE COORDINATOR Ot 530.81 ESOPHAGEAL REFLUX 09/21/2016 TED PA S MEDICAL OFFICE COORDINATOR Ot 536.3 GASTROPARESIS 09/21/2016 PATED Juan S MEDICAL OFFICE COORDINATOR Ot 607.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, ORGANIC ORIGN 09/21/2016 TED PA S MEDICAL OFFICE COORDINATOR Ot V58.69 OTH MED,LT,CURRENT USE 09/21/2016 ROXI CALI MD Ot 154.1 MALIGNANT NEOPL RECTUM 09/21/2016 ROXI CALI MD Ot 154.1 MALIGNANT NEOPL RECTUM 09/21/2016 VIRAJ SOLIS, ROXI Oseguera Ot C20 MALIGNANT NEOPLASM OF RECTUM 09/21/2016 ROXI CALI MD Ot C20 MALIGNANT NEOPLASM OF RECTUM 09/21/2016 ROXI CALI MD Ot D50.9 IRON DEFICIENCY ANEMIA, UNSPECIFIED 09/21/2016 ROXI CALI MD Ot F33.9 MAJOR DEPRESSIVE DISORDER, RECURRENT, UN 09/21/2016 ROXI CALI MD Ot G47.00 INSOMNIA, UNSPECIFIED 09/21/2016 ROXI CALI MD Ot N39.490 OVERFLOW INCONTINENCE 09/21/2016 ROXI CALI MD Ot 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 09/21/2016 ROXI CALI MD Ot Z92.3 PERSONAL HISTORY OF IRRADIATION 09/22/2016 LUDMILA DICKSON ABRIL Ot C20 MALIGNANT NEOPLASM OF RECTUM 09/22/2016 LUDMILA DICKSON ABRIL Ot E87.6 HYPOKALEMIA 09/22/2016 LUDMILA DICKSON ABRIL Ot F32.9 MAJOR DEPRESSIVE DISORDER, SINGLE EPISOD 09/22/2016 LUDMILA DICKSON ABRIL Ot F41.9 ANXIETY DISORDER, UNSPECIFIED 09/22/2016 LUDMILA DICKSON ABRIL Ot G89.29 OTHER CHRONIC PAIN 09/22/2016 LUDMILA DO ABRIL Ot I10 ESSENTIAL (PRIMARY) HYPERTENSION 09/22/2016 LUDMILA DICKSON ABRIL Ot K21.9 GASTRO-ESOPHAGEAL REFLUX DISEASE WITHOUT 09/22/2016 LUDMILA DICKSON ABRIL Ot K59.09 OTHER CONSTIPATION 09/22/2016 LUDMILA DICKSON ABRIL Ot N39.0 URINARY TRACT INFECTION, SITE NOT SPECIF 09/22/2016 LUDMILA DICKSON ABRIL Ot R41.82 ALTERED MENTAL STATUS, UNSPECIFIED 09/22/2016 LUDMILA DICKSON ABRIL Ot T40.2X5A ADVERSE EFFECT OF OTHER OPIOIDS, INITIAL 09/22/2016 LUDMILA DICKSON ABRIL Ot Z93.2 ILEOSTOMY STATUS 09/22/2016 LUDMILA DICKSON ABRIL Ot 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 Procedures Code Description [place] [address] ROUTINE VENIPUNCTURE 08/10/2012 37187 HEMOCCULT 2012 60293 HEMOCCULT 2012 12669 CBC 08/10/2012 47754 CMP 08/10/2012 93568 LIPID PANEL 08/10 3711942 GFR CALC (RESULT ONLY) 08/10/2012 88294 HEMOGLOBIN (IN-HOUSE) 08/27/2012 45.42 08/29/2012 48.24 08/29/2012 Medical O [facility] 10/04/2012 46.01 12/06/2012 47.19 12/06/2012 48.63 12/06/2012 86.07 12/06/2012 57.32 12/13/2012 01733 UA W/ CULTURE IF INDICATED 01/01/2013 46258 URINE DRUG SCREEN (IN-HOUSE) 01/01/[address] ABDOMEN & PELVIS W/ & W/O CONTRAST 01/02/2013 56336 ROUTINE VENIPUNCTURE 01/02/2013 23847 CULTURE URINE 71901 CMP 01/03/2013 [id number] GFR CALC (RESULT ONLY) 01/03/2013 02113 CBC 01/03/2013 45.92 SM BOWEL-RECT STUMP ANAS 04/18/2013 46.51 SM BOWEL STOMA CLOSURE 04/18/2013 45.16 ESOPHAGOGASTRODUODENOSCOPY [EGD] W/CLOSE 07/19/2013 45.23 COLONOSCOPY 10/18 Physical Physical Therapy, [facility] 05/21/2014 [facility] [place] Results Test Result Range Complete blood count (CBC) with automated white blood cell (WBC) differential - 02/28/16 02:10 Blood leukocytes automated count (number/volume) 7.9 10*3/ uL 4.3-11.0 Blood erythrocytes automated count (number/volume) 5.58 10*6 /uL 4.35-5.85 Venous blood hemoglobin measurement (mass/volume) 15.1 g/dL 13.3-17.7 Blood hematocrit (volume fraction) 45 % 40-54 Automated erythrocyte mean corpuscular volume 81 [foz_us] 80-99 Automated erythrocyte mean corpuscular hemoglobin (mass per erythrocyte) 27 pg 25-34 Automated erythrocyte mean corpuscular hemoglobin concentration measurement ( mass/volume) 34 g/dL 32-36 Automated erythrocyte distribution width ratio 15.3 % 10.0-14.5 Automated blood platelet count (count/volume) 286 10*3/uL 130-400 Automated blood platelet mean volume measurement 10.4 [foz_ us] 7.4-10.4 Automated blood neutrophils/100 leukocytes 76 % 42-75 Automated blood lymphocytes/100 leukocytes 17 % 12-44 Blood monocytes/100 leukocytes 5 % 0-12 Automated blood eosinophils/100 leukocytes 2 % 0-10 Automated blood basophils/100 leukocytes 0 % 0-10 Blood neutrophils automated count (number/volume) 6.0 10*3 1.8-7.8 Blood lymphocytes automated count (number/volume) 1.4 10*3 1.0-4.0 Blood monocytes automated count (number/volume) 0.4 10*3 0.0-1.0 Automated eosinophil count 0.2 10*3/uL 0.0-0.3 Automated blood basophil count (count/volume) 0.0 10*3/uL 0.0-0.1 Comprehensive metabolic panel - 02/28/16 02:10 Serum or plasma sodium measurement (moles/volume) 139 mmol/ L 135-145 Serum or plasma potassium measurement (moles/volume) 3.5 mmol/L 3.6-5.0 Serum or plasma chloride measurement (moles/volume) 109 mmol /L 98-107 Carbon dioxide 15 mmol/L 21-32 Serum or plasma anion gap determination (moles/volume) 15 mmol/L 5-14 Serum or plasma urea nitrogen measurement (mass/volume) 11 mg/dL 7-18 Serum or plasma creatinine measurement (mass/volume) 1.70 mg /dL 0.60-1.30 Serum or plasma urea nitrogen/creatinine mass ratio 6 NRG Serum or plasma creatinine measurement with calculation of estimated glomerular filtration rate 43 NRG Serum or plasma glucose measurement (mass/volume) 117 mg/dL 70-105 Serum or plasma calcium measurement (mass/volume) 9.3 mg/dL 8.5-10.1 Serum or plasma total bilirubin measurement (mass/volume) 0.5 mg/dL 0.1-1.0 Serum or plasma alkaline phosphatase measurement (enzymatic activity/volume) 93 U/L 40-136 Serum or plasma aspartate aminotransferase measurement (enzymatic activity/ volume) 26 U/L 5-34 Serum or plasma alanine aminotransferase measurement (enzymatic activity/volume ) 41 U/L 0-55 Serum or plasma protein measurement (mass/volume) 7.3 g/dL 6.4-8.2 Serum or plasma albumin measurement (mass/volume) 4.4 g/dL 3.2-4.5 Lipase - 02/28/16 02:10 Lipase 21 U/L 8-78 Serum or plasma ethanol measurement (mass/volume) - 02/28/16 02:10 Serum or plasma ethanol measurement (mass/volume) < mg/dL <10 Complete urinalysis with reflex to culture - 02/28/16 02:15 Urine color determination YELLOW NRG Urine clarity determination TURBID NRG Urine pH measurement by test strip 6 5- 9 Specific gravity of urine by test strip 1.020 1.016-1.022 Urine protein assay by test strip, semi-quantitative 2+ NEGATIVE Urine glucose detection by automated test strip NEGATIVE NEGATIVE Erythrocytes detection in urine sediment by light microscopy 1+ NEGATIVE Urine ketones detection by automated test strip NEGATIVE NEGATIVE Urine nitrite detection by test strip POSITIVE NEGATIVE Urine total bilirubin detection by test strip NEGATIVE NEGATIVE Urine urobilinogen measurement by automated test strip (mass/volume) NORMAL NORMAL Urine leukocyte esterase detection by dipstick 3+ NEGATIVE Automated urine sediment erythrocyte count by microscopy (number/high power field) [HPF] NRG Automated urine sediment leukocyte count by microscopy (number/high power field ) [HPF] NRG Bacteria detection in urine sediment by light microscopy LARGE NRG Crystals detection in urine sediment by light microscopy NONE NRG Casts detection in urine sediment by light microscopy NONE NRG Mucus detection in urine sediment by light microscopy NEGATIVE NRG Complete urinalysis with reflex to culture YES NRG Urine drug screening test - 02/28/16 02:15 Urine acetaminophen detection by screening method NEGATIVE NEGATIVE Urine phencyclidine detection by screening method NEGATIVE NEGATIVE Urine benzodiazepines detection by screening method NEGATIVE NEGATIVE Urine cocaine detection NEGATIVE NEGATIVE Urine amphetamines detection by screening method NEGATIVE NEGATIVE Urine methamphetamine detection by screening method NEGATIVE NEGATIVE Urine cannabinoids detection by screening method NEGATIVE NEGATIVE Urine opiates detection by screening method NEGATIVE NEGATIVE Urine barbiturates detection NEGATIVE NEGATIVE Screening urine tricyclic antidepressants detection POSITIVE NEGATIVE Urine methadone detection by screening method NEGATIVE NEGATIVE Bacterial urine culture - 02/28/16 02:15 Bacterial urine culture [id number] NRG COLONY COUNT 10,000/ML - 100,000/ML NRG FTX;REPORTABLE SENSITIVITY REPORTED 03/01 08:40 NRG Bacterial susceptibility panel - 02/28/16 02:15 Gentamicin susceptibility test by minimum inhibitory concentration <= NRG Trimethoprim/sulfamethoxazole susceptibility test by minimum inhibitoryconcentration <= NRG Ampicillin susceptibility test by minimum inhibitory concentration >= NRG Tobramycin susceptibility test by minimum inhibitory concentration <= NRG Cefazolin susceptibility test by minimum inhibitory concentration <= NRG Ceftriaxone susceptibility test by minimum inhibitory concentration <= NRG Ampicillin/sulbactam susceptibility test by minimum inhibitory concentration 4 NRG Piperacillin/tazobactam susceptibility test by minimum inhibitory concentration <= NRG Ciprofloxacin susceptibility test by minimum inhibitory concentration <= NRG Meropenem susceptibility test by minimum inhibitory concentration <= NRG Nitrofurantoin susceptibility test by minimum inhibitory concentration 64 NRG Aztreonam susceptibility test by minimum inhibitory concentration <= NRG Extended spectrum beta lactamase (ESBL) producing bacteria susceptibility test by minimum inhibitory concentration - [facility] Bacterial susceptibility panel - 02/28/16 02:15 Gentamicin susceptibility test by minimum inhibitory concentration S NRG Vancomycin susceptibility test by minimum inhibitory concentration 1 NRG Levofloxacin susceptibility test by minimum inhibitory concentration >= NRG Tetracycline susceptibility test by minimum inhibitory concentration >= NRG Ampicillin susceptibility test by minimum inhibitory concentration <= NRG Ciprofloxacin susceptibility test by minimum inhibitory concentration R NRG Nitrofurantoin susceptibility test by minimum inhibitory concentration <= NRG Linezolid susceptibility test by minimum inhibitory concentration 2 [facility] Bacterial urine culture - 05/30/16 13:50 Bacterial urine culture [id number] NRG COLONY COUNT >100,000/ML NR FTX;REPORTABLE SEE COMMENT NRG FREE TEXT ENTRY 2 PLUS MIXED GRAM POSITIVES NRG FREE TEXT ENTRY 3 <10,000/ML [facility] Bacterial susceptibility panel - 05/30/16 13:50 Gentamicin susceptibility test by minimum inhibitory concentration <= NRG Trimethoprim/sulfamethoxazole susceptibility test by minimum inhibitoryconcentration <= NRG Ampicillin susceptibility test by minimum inhibitory concentration >= NRG Tobramycin susceptibility test by minimum inhibitory concentration <= NRG Cefazolin susceptibility test by minimum inhibitory concentration <= NRG Ceftriaxone susceptibility test by minimum inhibitory concentration <= NRG Ampicillin/sulbactam susceptibility test by minimum inhibitory concentration 8 NRG Piperacillin/tazobactam susceptibility test by minimum inhibitory concentration <= NRG Ciprofloxacin susceptibility test by minimum inhibitory concentration <= NRG Meropenem susceptibility test by minimum inhibitory concentration <= NRG Nitrofurantoin susceptibility test by minimum inhibitory concentration 64 NRG Aztreonam susceptibility test by minimum inhibitory concentration <= NRG Extended spectrum beta lactamase (ESBL) producing bacteria susceptibility test by minimum inhibitory concentration - [facility] Bacterial susceptibility panel - 05/30/16 13:50 Gentamicin susceptibility test by minimum inhibitory concentration <= NRG Trimethoprim/sulfamethoxazole susceptibility test by minimum inhibitoryconcentration <= NRG Ampicillin susceptibility test by minimum inhibitory concentration 8 NRG Tobramycin susceptibility test by minimum inhibitory concentration <= NRG Cefazolin susceptibility test by minimum inhibitory concentration <= NRG Ceftriaxone susceptibility test by minimum inhibitory concentration <= NRG Ampicillin/sulbactam susceptibility test by minimum inhibitory concentration 4 NRG Piperacillin/tazobactam susceptibility test by minimum inhibitory concentration <= NRG Ciprofloxacin susceptibility test by minimum inhibitory concentration <= NRG Meropenem susceptibility test by minimum inhibitory concentration <= NRG Nitrofurantoin susceptibility test by minimum inhibitory concentration <= NRG Aztreonam susceptibility test by minimum inhibitory concentration <= NRG Extended spectrum beta lactamase (ESBL) producing bacteria susceptibility test by minimum inhibitory concentration - NRG Complete blood count (CBC) with automated white blood cell (WBC) differential - 08/14/16 01:05 Blood leukocytes automated count (number/volume) 11.6 10*3/ uL 4.3-11.0 Blood erythrocytes automated count (number/volume) 6.00 10*6 /uL 4.35-5.85 Venous blood hemoglobin measurement (mass/volume) 17.0 g/dL 13.3-17.7 Blood hematocrit (volume fraction) 49 % 40-54 Automated erythrocyte mean corpuscular volume 82 [foz_us] 80-99 Automated erythrocyte mean corpuscular hemoglobin (mass per erythrocyte) 28 pg 25-34 Automated erythrocyte mean corpuscular hemoglobin concentration measurement ( mass/volume) 34 g/dL 32-36 Automated erythrocyte distribution width ratio 15.3 % 10.0-14.5 Automated blood platelet count (count/volume) 480 10*3/uL 130-400 Automated blood platelet mean volume measurement 9.3 [foz_us ] 7.4-10.4 Automated blood neutrophils/100 leukocytes 75 % 42-75 Automated blood lymphocytes/100 leukocytes 19 % 12-44 Blood monocytes/100 leukocytes 6 % 0-12 Automated blood eosinophils/100 leukocytes 0 % 0-10 Automated blood basophils/100 leukocytes 0 % 0-10 Blood neutrophils automated count (number/volume) 8.7 10*3 1.8-7.8 Blood lymphocytes automated count (number/volume) 2.2 10*3 1.0-4.0 Blood monocytes automated count (number/volume) 0.7 10*3 0.0-1.0 Automated eosinophil count 0.0 10*3/uL 0.0-0.3 Automated blood basophil count (count/volume) 0.0 10*3/uL 0.0-0.1 Comprehensive metabolic panel - 08/14/16 01:05 Serum or plasma sodium measurement (moles/volume) 141 mmol/ L 135-145 Serum or plasma potassium measurement (moles/volume) 3.2 mmol/L 3.6-5.0 Serum or plasma chloride measurement (moles/volume) 108 mmol /L 98-107 Carbon dioxide 20 mmol/L 21-32 Serum or plasma anion gap determination (moles/volume) 13 mmol/L 5-14 Serum or plasma urea nitrogen measurement (mass/volume) 11 mg/dL 7-18 Serum or plasma creatinine measurement (mass/volume) 1.35 mg /dL 0.60-1.30 Serum or plasma urea nitrogen/creatinine mass ratio 8 NRG Serum or plasma creatinine measurement with calculation of estimated glomerular filtration rate 56 NRG Serum or plasma glucose measurement (mass/volume) 87 mg/dL 70-105 Serum or plasma calcium measurement (mass/volume) 9.2 mg/dL 8.5-10.1 Serum or plasma total bilirubin measurement (mass/volume) 0.8 mg/dL 0.1-1.0 Serum or plasma alkaline phosphatase measurement (enzymatic activity/volume) 92 U/L 40-136 Serum or plasma aspartate aminotransferase measurement (enzymatic activity/ volume) 19 U/L 5-34 Serum or plasma alanine aminotransferase measurement (enzymatic activity/volume ) 30 U/L 0-55 Serum or plasma protein measurement (mass/volume) 7.5 g/dL 6.4-8.2 Serum or plasma albumin measurement (mass/volume) 4.4 g/dL 3.2-4.5 Lipase - 08/14/16 01:05 Lipase 26 U/L 8-78 Complete urinalysis with reflex to culture - 08/14/16 01:13 Urine color determination YELLOW NRG Urine clarity determination SLIGHTLY CLOUDY NRG Urine pH measurement by test strip 7 5- 9 Specific gravity of urine by test strip 1.010 1.016-1.022 Urine protein assay by test strip, semi-quantitative 2+ NEGATIVE Urine glucose detection by automated test strip NEGATIVE NEGATIVE Erythrocytes detection in urine sediment by light microscopy 2+ NEGATIVE Urine ketones detection by automated test strip NEGATIVE NEGATIVE Urine nitrite detection by test strip POSITIVE NEGATIVE Urine total bilirubin detection by test strip NEGATIVE NEGATIVE Urine urobilinogen measurement by automated test strip (mass/volume) NORMAL NORMAL Urine leukocyte esterase detection by dipstick 3+ NEGATIVE Automated urine sediment erythrocyte count by microscopy (number/high power field) [HPF] NRG Automated urine sediment leukocyte count by microscopy (number/high power field ) [HPF] NRG Bacteria detection in urine sediment by light microscopy LARGE NRG Crystals detection in urine sediment by light microscopy NONE NRG Casts detection in urine sediment by light microscopy NONE NRG Mucus detection in urine sediment by light microscopy SMALL NRG Complete urinalysis with reflex to culture YES NRG Urine drug screening test - 08/14/16 01:13 Urine phencyclidine detection by screening method NEGATIVE NEGATIVE Urine benzodiazepines detection by screening method NEGATIVE NEGATIVE Urine cocaine detection NEGATIVE NEGATIVE Urine amphetamines detection by screening method NEGATIVE NEGATIVE Urine methamphetamine detection by screening method NEGATIVE NEGATIVE Urine cannabinoids detection by screening method NEGATIVE NEGATIVE Urine opiates detection by screening method NEGATIVE NEGATIVE Urine barbiturates detection NEGATIVE NEGATIVE Screening urine tricyclic antidepressants detection POSITIVE NEGATIVE Urine methadone detection by screening method NEGATIVE NEGATIVE Urine oxycodone detection NEGATIVE NEGATIVE Urine propoxyphene detection NEGATIVE NEGATIVE Bacterial urine culture - 08/14/16 01:13 Bacterial urine culture [id number] NRG COLONY COUNT >100,000/ML NRG FTX;REPORTABLE SENSITIVITY REPORTED 08/16/16 10:05 NRG URINE CULTURE RESULTS PLUS [facility] Bacterial susceptibility panel - 08/14/16 01:13 Gentamicin susceptibility test by minimum inhibitory concentration <= NRG Trimethoprim/sulfamethoxazole susceptibility test by minimum inhibitoryconcentration <= NRG Ampicillin susceptibility test by minimum inhibitory concentration 4 NRG Tobramycin susceptibility test by minimum inhibitory concentration <= NRG Cefazolin susceptibility test by minimum inhibitory concentration <= NRG Ceftriaxone susceptibility test by minimum inhibitory concentration <= NRG Ampicillin/sulbactam susceptibility test by minimum inhibitory concentration <= NRG Piperacillin/tazobactam susceptibility test by minimum inhibitory concentration <= NRG Ciprofloxacin susceptibility test by minimum inhibitory concentration <= NRG Meropenem susceptibility test by minimum inhibitory concentration <= NRG Nitrofurantoin susceptibility test by minimum inhibitory concentration <= NRG Aztreonam susceptibility test by minimum inhibitory concentration <= NRG Extended spectrum beta lactamase (ESBL) producing bacteria susceptibility test by minimum inhibitory concentration - [facility] Bacterial susceptibility panel - 08/14/16 01:13 Gentamicin susceptibility test by minimum inhibitory concentration <= NRG Trimethoprim/sulfamethoxazole susceptibility test by minimum inhibitoryconcentration <= NRG Ampicillin susceptibility test by minimum inhibitory concentration >= NRG Tobramycin susceptibility test by minimum inhibitory concentration <= NRG Cefazolin susceptibility test by minimum inhibitory concentration 8 NRG Ceftriaxone susceptibility test by minimum inhibitory concentration <= NRG Ampicillin/sulbactam susceptibility test by minimum inhibitory concentration 16 NRG Piperacillin/tazobactam susceptibility test by minimum inhibitory concentration <= NRG Ciprofloxacin susceptibility test by minimum inhibitory concentration <= NRG Meropenem susceptibility test by minimum inhibitory concentration <= NRG Nitrofurantoin susceptibility test by minimum inhibitory concentration <= NRG Aztreonam susceptibility test by minimum inhibitory concentration <= NRG Extended spectrum beta lactamase (ESBL) producing bacteria susceptibility test by minimum inhibitory concentration - [facility] Bacterial susceptibility panel - 08/14/16 01:13 Gentamicin susceptibility test by minimum inhibitory concentration S NRG Vancomycin susceptibility test by minimum inhibitory concentration 1 NRG Levofloxacin susceptibility test by minimum inhibitory concentration >= NRG Tetracycline susceptibility test by minimum inhibitory concentration >= NRG Ampicillin susceptibility test by minimum inhibitory concentration <= NRG Ciprofloxacin susceptibility test by minimum inhibitory concentration R NRG Nitrofurantoin susceptibility test by minimum inhibitory concentration <= NRG Linezolid susceptibility test by minimum inhibitory concentration 2 NRG Complete blood count (CBC) with automated white blood cell (WBC) differential - 09/21/16 09:30 Blood leukocytes automated count (number/volume) 10.2 10*3/ uL 4.3-11.0 Blood erythrocytes automated count (number/volume) 5.47 10*6 /uL 4.35-5.85 Venous blood hemoglobin measurement (mass/volume) 16.0 g/dL 13.3-17.7 Blood hematocrit (volume fraction) 47 % 40-54 Automated erythrocyte mean corpuscular volume 85 [foz_us] 80-99 Automated erythrocyte mean corpuscular hemoglobin (mass per erythrocyte) 29 pg 25-34 Automated erythrocyte mean corpuscular hemoglobin concentration measurement ( mass/volume) 34 g/dL 32-36 Automated erythrocyte distribution width ratio 13.8 % 10.0-14.5 Automated blood platelet count (count/volume) 204 10*3/uL 130-400 Automated blood platelet mean volume measurement 10.5 [foz_ us] 7.4-10.4 Automated blood neutrophils/100 leukocytes 76 % 42-75 Automated blood lymphocytes/100 leukocytes 16 % 12-44 Blood monocytes/100 leukocytes 6 % 0-12 Automated blood eosinophils/100 leukocytes 2 % 0-10 Automated blood basophils/100 leukocytes 0 % 0-10 Blood neutrophils automated count (number/volume) 7.7 10*3 1.8-7.8 Blood lymphocytes automated count (number/volume) 1.6 10*3 1.0-4.0 Blood monocytes automated count (number/volume) 0.7 10*3 0.0-1.0 Automated eosinophil count 0.2 10*3/uL 0.0-0.3 Automated blood basophil count (count/volume) 0.0 10*3/uL 0.0-0.1 PT panel in platelet poor plasma by coagulation assay - 09/21/16 09:30 Prothrombin time (PT) in platelet poor plasma by coagulation assay 13.0 s 12.2-14.7 INR in platelet poor plasma or blood by coagulation assay 1.0 0.8-1.4 Activated partial thromboplastin time (aPTT) in platelet poor plasma bycoagulation assay - 09/21/16 09:30 Activated partial thromboplastin time (aPTT) in platelet poor plasma bycoagulation assay 28 s 24-35 Influenza virus A and B antigen detection - 09/21/16 09:30 FLU RESULT NEGATIVE FOR INFLUENZA A AND B ANTIGENS BY [facility] Blood lactic acid measurement (moles/volume) - 09/21/16 09:30 Blood lactic acid measurement (moles/volume) 1.61 mmol/L 0.50-2.00 Comprehensive metabolic panel - 09/21/16 09:30 Serum or plasma sodium measurement (moles/volume) 140 mmol/ L 135-145 Serum or plasma potassium measurement (moles/volume) 3.8 mmol/L 3.6-5.0 Serum or plasma chloride measurement (moles/volume) 105 mmol /L 98-107 Carbon dioxide 25 mmol/L 21-32 Serum or plasma anion gap determination (moles/volume) 10 mmol/L 5-14 Serum or plasma urea nitrogen measurement (mass/volume) 15 mg/dL 7-18 Serum or plasma creatinine measurement (mass/volume) 1.52 mg /dL 0.60-1.30 Serum or plasma urea nitrogen/creatinine mass ratio 10 NRG Serum or plasma creatinine measurement with calculation of estimated glomerular filtration rate 49 NRG Serum or plasma glucose measurement (mass/volume) 106 mg/dL 70-105 Serum or plasma calcium measurement (mass/volume) 9.5 mg/dL 8.5-10.1 Serum or plasma total bilirubin measurement (mass/volume) 0.8 mg/dL 0.1-1.0 Serum or plasma alkaline phosphatase measurement (enzymatic activity/volume) 84 U/L 40-136 Serum or plasma aspartate aminotransferase measurement (enzymatic activity/ volume) 53 U/L 5-34 Serum or plasma alanine aminotransferase measurement (enzymatic activity/volume ) 64 U/L 0-55 Serum or plasma protein measurement (mass/volume) 7.9 g/dL 6.4-8.2 Serum or plasma albumin measurement (mass/volume) 4.6 g/dL 3.2-4.5 Magnesium - 09/21/16 09:30 Magnesium 1.9 mg/dL 1.8-2.4 Serum or plasma thyrotropin measurement by detection limit <=0.05 miu/l (units/ volume) - 09/21/16 09:30 Serum or plasma thyrotropin measurement by detection limit <=0.05 miu/l (units/ volume) 2.57 u[iU]/mL 0.35-4.94 Serum or plasma ethanol measurement (mass/volume) - 09/21/16 09:30 Serum or plasma ethanol measurement (mass/volume) < mg/dL <10 Acute hepatitis panel - 09/21/16 09:30 Confirmatory quantitative serum or plasma hepatitis B virus surface antigen measurement Non-Reactive Non-Reactive Hepatitis A virus IgM antibody assay Non-Reactive Non-Reactive Hepatitis B virus core IgM antibody assay Non-Reactive Non-Reactive Serum hepatitis C virus antibody detection Non-Reactive Non-Reactive Bacterial blood culture - 09/21/16 09:30 FREE TEXT EXTERNAL SEE COMMENT NRG QUANTITY OF GROWTH Isolated [facility] Bacterial blood culture [id number] NR Capillary blood glucose measurement by glucometer (mass/volume) - 09/21/16 09: 38 Capillary blood glucose measurement by glucometer (mass/volume) 103 mg/dL 70-110 Arterial blood gas measurement - 09/21/16 09:55 Blood pCO2 33 mm[Hg] 35-45 Blood pO2 70 mm[Hg] 79-93 Arterial blood bicarbonate measurement (moles/volume) 21 mmol/L 23-27 Arterial blood base excess by calculation -3.2 mmol/L -2.5-2.5 Arterial blood oxygen saturation measurement 95 % 94-100 * Inhaled oxygen flow rate 3 NRG Arterial blood pH measurement with patient temperature correction 7.42 7.37-7.43 Arterial blood carbon dioxide, total measurement (moles/volume) 21.4 mmol/L 21.0-31.0 Body site RT RAD NRG Assessment of wrist artery patency prior to arterial puncture YES-POS NRG Setting of ventilation mode NO NRG Measurement of body temperature 100.3 NRG Bacterial blood culture - 09/21/16 10:00 QUANTITY OF GROWTH Isolated NRG Bacterial blood culture [id number] NRG FREE TEXT ENTRY 2 NOT STREPTOCOCCUS PNEUMONIAE AND NRG FREE TEXT ENTRY 3 NOT GROUP D STREP NRG Complete urinalysis with reflex to culture - 09/21/16 10:15 Urine color determination YELLOW NRG Urine clarity determination VERY CLOUDY NRG Urine pH measurement by test strip 6 5- 9 Specific gravity of urine by test strip 1.010 1.016-1.022 Urine protein assay by test strip, semi-quantitative 3+ NEGATIVE Urine glucose detection by automated test strip NEGATIVE NEGATIVE Erythrocytes detection in urine sediment by light microscopy 5+ NEGATIVE Urine ketones detection by automated test strip NEGATIVE NEGATIVE Urine nitrite detection by test strip NEGATIVE NEGATIVE Urine total bilirubin detection by test strip NEGATIVE NEGATIVE Urine urobilinogen measurement by automated test strip (mass/volume) NORMAL NORMAL Urine leukocyte esterase detection by dipstick 3+ NEGATIVE Automated urine sediment erythrocyte count by microscopy (number/high power field) > [HPF] NRG Automated urine sediment leukocyte count by microscopy (number/high power field ) > [HPF] NRG Bacteria detection in urine sediment by light microscopy MODERATE NRG Squamous epithelial cells detection in urine sediment by light microscopy 0-2 NRG Crystals detection in urine sediment by light microscopy NONE NRG Casts detection in urine sediment by light microscopy NONE NRG Mucus detection in urine sediment by light microscopy NEGATIVE NRG Complete urinalysis with reflex to culture YES NRG Urine drug screening test - 09/21/16 10:15 Urine phencyclidine detection by screening method NEGATIVE NEGATIVE Urine benzodiazepines detection by screening method POSITIVE NEGATIVE Urine cocaine detection NEGATIVE NEGATIVE Urine amphetamines detection by screening method NEGATIVE NEGATIVE Urine methamphetamine detection by screening method NEGATIVE NEGATIVE Urine cannabinoids detection by screening method NEGATIVE NEGATIVE Urine opiates detection by screening method POSITIVE NEGATIVE Urine barbiturates detection NEGATIVE NEGATIVE Screening urine tricyclic antidepressants detection NEGATIVE NEGATIVE Urine methadone detection by screening method NEGATIVE NEGATIVE Urine oxycodone detection POSITIVE NEGATIVE Urine propoxyphene detection NEGATIVE NEGATIVE Bacterial urine culture - 09/21/16 10:15 Bacterial urine culture [id number] NR COLONY COUNT 10,000/ML - 100,000/ML NRG FTX;REPORTABLE SENSITIVITY REPORTED AT 1712, 3-17 [facility] Bacterial susceptibility panel - 09/21/16 10:15 Gentamicin susceptibility test by minimum inhibitory concentration <= NRG Trimethoprim/sulfamethoxazole susceptibility test by minimum inhibitoryconcentration <= NRG Ampicillin susceptibility test by minimum inhibitory concentration 4 NRG Tobramycin susceptibility test by minimum inhibitory concentration <= NRG Cefazolin susceptibility test by minimum inhibitory concentration <= NRG Ceftriaxone susceptibility test by minimum inhibitory concentration <= NRG Ampicillin/sulbactam susceptibility test by minimum inhibitory concentration 4 NRG Piperacillin/tazobactam susceptibility test by minimum inhibitory concentration <= NRG Ciprofloxacin susceptibility test by minimum inhibitory concentration <= NRG Meropenem susceptibility test by minimum inhibitory concentration <= NRG Nitrofurantoin susceptibility test by minimum inhibitory concentration <= NRG Aztreonam susceptibility test by minimum inhibitory concentration <= NRG Extended spectrum beta lactamase (ESBL) producing bacteria susceptibility test by minimum inhibitory concentration - [facility] Bacterial susceptibility panel - 09/21/16 10:15 Gentamicin susceptibility test by minimum inhibitory concentration <= NRG Trimethoprim/sulfamethoxazole susceptibility test by minimum inhibitoryconcentration <= NRG Ampicillin susceptibility test by minimum inhibitory concentration >= NRG Tobramycin susceptibility test by minimum inhibitory concentration <= NRG Cefazolin susceptibility test by minimum inhibitory concentration <= NRG Ceftriaxone susceptibility test by minimum inhibitory concentration <= NRG Ampicillin/sulbactam susceptibility test by minimum inhibitory concentration 4 NRG Piperacillin/tazobactam susceptibility test by minimum inhibitory concentration <= NRG Ciprofloxacin susceptibility test by minimum inhibitory concentration <= NRG Meropenem susceptibility test by minimum inhibitory concentration <= NRG Nitrofurantoin susceptibility test by minimum inhibitory concentration 32 NRG Aztreonam susceptibility test by minimum inhibitory concentration <= NRG Extended spectrum beta lactamase (ESBL) producing bacteria susceptibility test by minimum inhibitory concentration - [facility] Complete blood count (CBC) with automated white blood cell (WBC) differential - 09/22/16 05:09 Blood leukocytes automated count (number/volume) 5.7 10*3/ uL 4.3-11.0 Blood erythrocytes automated count (number/volume) 4.20 10*6 /uL 4.35-5.85 Venous blood hemoglobin measurement (mass/volume) 12.1 g/dL 13.3-17.7 Blood hematocrit (volume fraction) 36 % 40-54 Automated erythrocyte mean corpuscular volume 86 [foz_us] 80-99 Automated erythrocyte mean corpuscular hemoglobin (mass per erythrocyte) 29 pg 25-34 Automated erythrocyte mean corpuscular hemoglobin concentration measurement ( mass/volume) 33 g/dL 32-36 Automated erythrocyte distribution width ratio 13.2 % 10.0-14.5 Automated blood platelet count (count/volume) 150 10*3/uL 130-400 Automated blood platelet mean volume measurement 10.8 [foz_ us] 7.4-10.4 Automated blood neutrophils/100 leukocytes 61 % 42-75 Automated blood lymphocytes/100 leukocytes 26 % 12-44 Blood monocytes/100 leukocytes 9 % 0-12 Automated blood eosinophils/100 leukocytes 5 % 0-10 Automated blood basophils/100 leukocytes 0 % 0-10 Blood neutrophils automated count (number/volume) 3.4 10*3 1.8-7.8 Blood lymphocytes automated count (number/volume) 1.5 10*3 1.0-4.0 Blood monocytes automated count (number/volume) 0.5 10*3 0.0-1.0 Automated eosinophil count 0.3 10*3/uL 0.0-0.3 Automated blood basophil count (count/volume) 0.0 10*3/uL 0.0-0.1 Comprehensive metabolic panel - 09/22/16 05:09 Serum or plasma sodium measurement (moles/volume) 137 mmol/ L 135-145 Serum or plasma potassium measurement (moles/volume) 3.4 mmol/L 3.6-5.0 Serum or plasma chloride measurement (moles/volume) 106 mmol /L 98-107 Carbon dioxide 23 mmol/L 21-32 Serum or plasma anion gap determination (moles/volume) 8 mmol/L 5-14 Serum or plasma urea nitrogen measurement (mass/volume) 10 mg/dL 7-18 Serum or plasma creatinine measurement (mass/volume) 0.92 mg /dL 0.60-1.30 Serum or plasma urea nitrogen/creatinine mass ratio 11 NRG Serum or plasma creatinine measurement with calculation of estimated glomerular filtration rate > NRG Serum or plasma glucose measurement (mass/volume) 105 mg/dL 70-105 Serum or plasma calcium measurement (mass/volume) 8.0 mg/dL 8.5-10.1 Serum or plasma total bilirubin measurement (mass/volume) 1.1 mg/dL 0.1-1.0 Serum or plasma alkaline phosphatase measurement (enzymatic activity/volume) 58 U/L 40-136 Serum or plasma aspartate aminotransferase measurement (enzymatic activity/ volume) 25 U/L 5-34 Serum or plasma alanine aminotransferase measurement (enzymatic activity/volume ) 36 U/L 0-55 Serum or plasma protein measurement (mass/volume) 5.4 g/dL 6.4-8.2 Serum or plasma albumin measurement (mass/volume) 3.2 g/dL 3.2-4.5 Complete blood count (CBC) with automated white blood cell (WBC) differential - 10/06/16 21:50 Blood leukocytes automated count (number/volume) 12.8 10*3/ uL 4.3-11.0 Blood erythrocytes automated count (number/volume) 5.91 10*6 /uL 4.35-5.85 Venous blood hemoglobin measurement (mass/volume) 17.2 g/dL 13.3-17.7 Blood hematocrit (volume fraction) 49 % 40-54 Automated erythrocyte mean corpuscular volume 83 [foz_us] 80-99 Automated erythrocyte mean corpuscular hemoglobin (mass per erythrocyte) 29 pg 25-34 Automated erythrocyte mean corpuscular hemoglobin concentration measurement ( mass/volume) 35 g/dL 32-36 Automated erythrocyte distribution width ratio 14.2 % 10.0-14.5 Automated blood platelet count (count/volume) 453 10*3/uL 130-400 Automated blood platelet mean volume measurement 10.4 [foz_ us] 7.4-10.4 Automated blood neutrophils/100 leukocytes 65 % 42-75 Automated blood lymphocytes/100 leukocytes 25 % 12-44 Blood monocytes/100 leukocytes 9 % 0-12 Automated blood eosinophils/100 leukocytes 0 % 0-10 Automated blood basophils/100 leukocytes 0 % 0-10 Blood neutrophils automated count (number/volume) 8.4 10*3 1.8-7.8 Blood lymphocytes automated count (number/volume) 3.2 10*3 1.0-4.0 Blood monocytes automated count (number/volume) 1.2 10*3 0.0-1.0 Automated eosinophil count 0.0 10*3/uL 0.0-0.3 Automated blood basophil count (count/volume) 0.0 10*3/uL 0.0-0.1 Comprehensive metabolic panel - 10/06/16 21:50 Serum or plasma sodium measurement (moles/volume) 142 mmol/ L 135-145 Serum or plasma potassium measurement (moles/volume) 3.6 mmol/L 3.6-5.0 Serum or plasma chloride measurement (moles/volume) 111 mmol /L 98-107 Carbon dioxide 19 mmol/L 21-32 Serum or plasma anion gap determination (moles/volume) 12 mmol/L 5-14 Serum or plasma urea nitrogen measurement (mass/volume) 14 mg/dL 7-18 Serum or plasma creatinine measurement (mass/volume) 1.42 mg /dL 0.60-1.30 Serum or plasma urea nitrogen/creatinine mass ratio 10 NRG Serum or plasma creatinine measurement with calculation of estimated glomerular filtration rate 53 NRG Serum or plasma glucose measurement (mass/volume) 96 mg/dL 70-105 Serum or plasma calcium measurement (mass/volume) 9.3 mg/dL 8.5-10.1 Serum or plasma total bilirubin measurement (mass/volume) 1.0 mg/dL 0.1-1.0 Serum or plasma alkaline phosphatase measurement (enzymatic activity/volume) 75 U/L 40-136 Serum or plasma aspartate aminotransferase measurement (enzymatic activity/ volume) 37 U/L 5-34 Serum or plasma alanine aminotransferase measurement (enzymatic activity/volume ) 52 U/L 0-55 Serum or plasma protein measurement (mass/volume) 7.7 g/dL 6.4-8.2 Serum or plasma albumin measurement (mass/volume) 4.7 g/dL 3.2-4.5 Serum or plasma amylase measurement (enzymatic activity/volume) - 10/06/16 21: 50 Serum or plasma amylase measurement (enzymatic activity/volume) 95 U/L 25-125 Lipase - 10/06/16 21:50 Lipase 41 U/L 8-78 Urine drug screening test - 10/06/16 22:20 Urine phencyclidine detection by screening method NEGATIVE NEGATIVE Urine benzodiazepines detection by screening method POSITIVE NEGATIVE Urine cocaine detection NEGATIVE NEGATIVE Urine amphetamines detection by screening method NEGATIVE NEGATIVE Urine methamphetamine detection by screening method NEGATIVE NEGATIVE Urine cannabinoids detection by screening method NEGATIVE NEGATIVE Urine opiates detection by screening method NEGATIVE NEGATIVE Urine barbiturates detection NEGATIVE NEGATIVE Screening urine tricyclic antidepressants detection NEGATIVE NEGATIVE Urine methadone detection by screening method NEGATIVE NEGATIVE Urine oxycodone detection NEGATIVE NEGATIVE Urine propoxyphene detection NEGATIVE NEGATIVE Complete urinalysis with reflex to culture - 10/06/16 22:20 Urine color determination YELLOW NRG Urine clarity determination SLIGHTLY CLOUDY NRG Urine pH measurement by test strip 6.5 5 -9 Specific gravity of urine by test strip 1.015 1.016-1.022 Urine protein assay by test strip, semi-quantitative 2+ NEGATIVE Urine glucose detection by automated test strip NEGATIVE NEGATIVE Erythrocytes detection in urine sediment by light microscopy 2+ NEGATIVE Urine ketones detection by automated test strip NEGATIVE NEGATIVE Urine nitrite detection by test strip POSITIVE NEGATIVE Urine total bilirubin detection by test strip NEGATIVE NEGATIVE Urine urobilinogen measurement by automated test strip (mass/volume) NORMAL NORMAL Urine leukocyte esterase detection by dipstick 3+ NEGATIVE Automated urine sediment erythrocyte count by microscopy (number/high power field) [HPF] NRG Automated urine sediment leukocyte count by microscopy (number/high power field ) [HPF] NRG Bacteria detection in urine sediment by light microscopy MODERATE NRG Squamous epithelial cells detection in urine sediment by light microscopy 25-50 NRG Crystals detection in urine sediment by light microscopy NONE NRG Casts detection in urine sediment by light microscopy NONE NRG Mucus detection in urine sediment by light microscopy NEGATIVE NRG Complete urinalysis with reflex to culture YES NRG Bacterial urine culture - 10/06/16 22:20 Bacterial urine culture FOOTNOTE NRG Stool leukocytes detection by light microscopy - 10/06/16 22:33 FECAL WBC RESULTS NO WBC'S OBSERVED ON DIRECT SMEAR NRG FECAL NOTE FECAL LEUKOCYTES MAY BE INTERMITTENTLY PRESENT OR NRG FECAL NOTE UNEVENLY DISTRIBUTED IN STOOL SPECIMENS, AND WBC NRG FECAL NOTE MORPHOLOGY DEGRADES DURING TRANSPORT NRG FECAL NOTE NOTE: NRG C DIFFICILE AG + TOXIN A/B. - 10/06/16 22:33 RESULTS NEGATIVE FOR ANTIGEN AND TOXIN A/B NRG Stool bacteria identification by culture - 10/06/16 22:33 Stool bacteria identification by culture N2 NRG Encounters ACCT No. Visit Date/Time Discharge Status Pt. Type Provider Facility Loc./Unit Complaint [id number] 10/29/2014 09:34:00 10/29/2014 23: 59:59 CLS Outpatient JANINE HERNDON MD [id number] 10/17/2014 10:25:00 10/17/2014 23: 59:59 CLS Outpatient LINDA BENTLEY APRN [id number] 09/29/2014 13:37:00 09/29/2014 23: 59:59 CLS Outpatient JANINE HERNDON MD [id number] 08/01/2014 14:42:00 08/01/2014 23: 59:59 CLS Outpatient LINDA BENTLEY APRN [id number] 06/27/2014 13:22:00 06/27/2014 23: 59:59 CLS Outpatient LINDA BENTLEY APRN [id number] 05/21/2014 14:00:00 05/21/2014 23: 59:59 CLS Outpatient LINDA BENTLEY APRN [id number] 05/07/2014 10:40:00 05/07/2014 23: 59:59 CLS Outpatient LINDA BENTLEY APRN [id number] 02/25/2014 15:37:00 02/25/2014 23: 59:59 CLS Outpatient LINDA BENTLEY APRN [id number] 02/19/2014 00:00:00 02/19/2014 23: 59:59 CLS Outpatient LINDA BENTLEY APRN [id number] 01/29/2014 16:00:00 01/29/2014 23: 59:59 CLS Outpatient LINDA BENTLEY APRN [id number] 12/11/2013 11:57:00 12/11/2013 23: 59:59 CLS Outpatient LINDA BENTLEY APRN [id number] 10/30/2013 14:47:00 10/30/2013 23: 59:59 CLS Outpatient LINDA BENTLEY APRN [id number] 09/03/2013 07:55:00 09/03/2013 23: 59:59 CLS Outpatient AJNINE HERNDON MD [id number] 09/02/2013 09:25:00 09/02/2013 23: 59:59 CLS Outpatient LINDA BENTLEY APRN [id number] 05/27/2013 12:30:00 05/27/2013 23: 59:59 CLS Outpatient ADOLPH GRAHAM MD [id number] 04/10/2013 11:45:00 04/10/2013 23: 59:59 CLS Outpatient LINDA BENTLEY APRN [id number] 04/01/2013 15:10:00 04/01/2013 23: 59:59 CLS Outpatient NIKHIL PITTS DO [id number] 03/22/2013 00:00:00 03/22/2013 23: 59:59 CLS Outpatient RIVER ARCE MD [id number] 10/17/2012 16:05:00 10/17/2012 23: 59:59 CLS Outpatient LINDA BENTLEY APRN [id number] 10/03/2012 17:55:00 10/03/2012 23: 59:59 CLS Outpatient LINDA BENTLEY APRN [id number] 09/19/2012 18:39:00 09/19/2012 23: 59:59 CLS Outpatient ADOLPH GRAHAM MD [id number] 08/27/2012 12:52:00 08/27/2012 23: 59:59 CLS Outpatient [id number] 08/10/2012 11:19:00 08/10/2012 23: 59:59 CLS Outpatient LINDA BENTLEY APRN [id number] 08/03/2012 15:56:00 08/03/2012 23: 59:59 CLS Outpatient [id number] 03/11/2013 14:50:00 Document Registration [id number] 01/22/2013 15:25:00 Document Registration [id number] 01/07/2013 15:54:00 Document Registration [id number] 01/02/2013 16:51:00 Document Registration [id number] 01/01/2013 15:26:00 Document Registration
--- OUTSIDE RECORDS SUMMARY | 2016-10-09 11:00 | XMS REPORT ---
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
--- OUTSIDE RECORDS SUMMARY | 2016-10-09 11:00 | XMS REPORT ---
Author LINDA Juarez Organization eClinical[employer] Address Unknown Phone Unavailable Care Team Providers Care Industrial Equipment Wirer Name Role Phone LINDA BENTLEY CP Unavailable [...] Instructions Start Date End Date Status Dosage Oxycodone HCl [facility] [address]-91 30 MG Orally 2 times a day Apr 29, 2015 1 tablet as needed Results No Known Results Summary Purpose eClinicalWorks Submission
--- OUTSIDE RECORDS SUMMARY | 2016-10-09 11:00 | XMS REPORT ---
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.42 Active Problem Unspecified episodic mood disorder 296.90 Active Problem Muscle weakness (generalized) 728.87 Active Problem Elevated blood pressure reading without diagnosis of hypertension 796.2 Active Problem Cellulitis and abscess of other specified site 682.8 Active Problem Hydronephrosis 591 Active Problem Abdominal pain, periumbilic 789.05 Active Problem Urinary tract infection, site not specified 599.0 Active Problem Essential hypertension, benign 401.1 Active Problem Blood in stool 578.1 Active Problem 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
--- OUTSIDE RECORDS SUMMARY | 2016-10-09 11:00 | XMS REPORT ---
Author LINDA Juarez Organization [employer] Address Unknown Phone Unavailable Care Team Providers Care Network Security Administrator Name Role Phone LINDA BENTLEY CP Unavailable [...]
--- OUTSIDE RECORDS SUMMARY | 2016-10-09 11:01 | XMS REPORT ---
Author Author LINDA BENTLEY Organization [employer] Address Unknown Phone Unavailable Care Team Providers Care Wick Tender Name Role Phone LINDA BENTLEY CP Unavailable [...] Date End Date Status Dosage Oxycodone HCl [facility] [address]-36 30 MG Orally 2 times a day Apr 29, 2015 1 tablet as needed Results No Known Results Summary Purpose eClinicalWorks Submission
--- OUTSIDE RECORDS SUMMARY | 2016-10-09 11:01 | XMS REPORT ---
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 [address]-28 2 MG Orally 3 times a day as needed October 13, 2014 1 tablet Results No Known Results Summary Purpose eClinicalWorks Submission
--- OUTSIDE RECORDS SUMMARY | 2016-10-09 11:01 | XMS REPORT ---
Author Author LINDA BENTLEY Organization [employer] Address Unknown Phone Unavailable Care Team Providers Care Yacht Rigger Name Role Phone LINDA BENTLEY CP Unavailable [...] Problem Chronic fatigue, unspecified R53.82 Active Medications No Known Medications Results No Known Results Summary Purpose eClinicalWorks Submission
--- OUTSIDE RECORDS SUMMARY | 2016-10-09 11:01 | XMS REPORT ---
Author LINDA Juarez Organization [employer] Address Unknown Phone Unavailable Care Team Providers Care Direct Care Worker Name Role Phone LINDA BENTLEY CP Unavailable Allergies No Known Allergies Problems Problem Type Condition ICD-9 Code Onset Dates Condition Status Problem Persistent [...] Anal or rectal pain 569.42 Active Medications Medication Code System Code Instructions Start Date End Date Status Dosage Percocet [facility] [address]-36 10-325 MG September 15, 2014 take 1 tablet by oral route every 4 hours as needed for pain Results No Known Results Summary Purpose eClinicalWorks Submission
--- OUTSIDE RECORDS SUMMARY | 2016-10-09 11:01 | XMS REPORT ---
Author LINDA Juarez Organization [employer] Address Unknown Phone Unavailable Care Team Providers Care Executive Compensation Analyst Name Role Phone LINDA BENTLEY CP Unavailable [...]
--- OUTSIDE RECORDS SUMMARY | 2016-10-09 11:01 | XMS REPORT ---
Author Author LINDA BENTLEY Organization [employer] Address Unknown Phone Unavailable Care Team Providers Care Scenic Designer Name Role Phone LINDA BENTLEY CP Unavailable [...]
--- OUTSIDE RECORDS SUMMARY | 2016-10-09 11:02 | XMS REPORT ---
Author LINDA Juarez Organization [employer] Address Unknown Phone Unavailable Care Team Providers Care Community Chest Officer Name Role Phone LINDA BENTLEY CP Unavailable [...]
--- OUTSIDE RECORDS SUMMARY | 2016-10-09 11:02 | XMS REPORT ---
Author Author LINDA BENTLEY Organization eClinicalWorks Address Unknown Phone Unavailable Care Team Providers Care Soaping Department Supervisor Name Role Phone LINDA BENTLEY CP Unavailable [...] Start Date End Date Status Dosage Klonopin [facility] [address]-53 2 MG Orally 3 times a day as needed October 13, 2014 1 tablet Results No Known Results Summary Purpose eClinicalWorks Submission
--- OUTSIDE RECORDS SUMMARY | 2016-10-09 11:03 | XMS REPORT ---
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 Problem Anal or rectal pain 569.42 Active Medications Medication Code System Code Instructions Start Date End Date Status Dosage Zoloft [facility] [address]-73 100 MG Once a day Aug 01, 2014 1 tablet Amitriptyline HCl [facility] [address]-69 75 MG Orally Once a day December 15, 2014 1 tablet at bedtime Dicyclomine HCl [facility] [address]-02 20 MG Orally Four times a day February 09, 2015 Jun 09, 2015 1 tablet OxyContin [facility] [address]-75 40 MG Orally every 12 hrs Mar 30, 2015 1 tablet Protonix [facility] [address]-60 40 MG Once a day September 15, 2014 1 tablet Percocet [facility] [address]-16 10-325 MG September 15, 2014 take 1 tablet by oral route every 4 hours as needed for pain Lyrica [facility] [address]-64 150 MG Orally Jun 27, 2014 take 1 capsule by Oral route 2 times per day Klonopin [facility] [address]-89 2 MG Orally 2 times a day PRN anxiety October 13, 2014 take 1 tablet Procedures Procedure Coding System Code Date Office Visit, Est Pt., Level 3 CPT-4 28178 Mar 30, 2015 Vital Signs Date/Time: Mar 30, 2015 Temperature 97.7 F Weight 196.2 lbs Height 67 in BMI 30.73 Index Blood Pressure Diastolic 96 mmHg Blood Pressure Systolic 140 mmHg Cardiac Monitoring Heart Rate 96 bpm Results No Known Results Summary Purpose eClinicalWorks Submission
--- OUTSIDE RECORDS SUMMARY | 2016-10-09 11:03 | XMS REPORT ---
Author LINDA Juarez [facility] eClinicalWorks Address Unknown Phone Unavailable Care Team Providers Care Keyseater Operator Name Role Phone LINDA BENTLEY CP Unavailable Allergies, Adverse Reactions, Alerts Substance Reaction Event Type Morphine Info Not Available Drug Allergy Codeine Info Not Available Drug Allergy Problems Problem Type Condition Code Onset Dates Condition Status Assessment Muscle spasms of both lower extremities M62.838 Active Assessment Cellulitis, unspecified cellulitis site L03.90 Active Problem Hypertension, benign I10 Active Problem Abdominal pain, left lower quadrant R10.32 Active Problem Hydronephrosis with ureteral stricture, not elsewhere classified N13.1 Active Problem Primary insomnia F51.01 Active Problem 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 Problem Mood disorder F39 Active Problem Chronic fatigue, unspecified R53.82 Active Medications Medication Code System Code Instructions Start Date End Date Status Dosage Bactrim DS [facility] [address]-61 800-160 MG Orally Twice a day May 06, 2016 May 16, 2016 1 tablet Gabapentin [facility] 99276701070 600 MG 3 times a day 2 tablet Percocet [facility] [address]-94 10-325 MG every 4 hrs September 15, 2014 1 tablet Cetirizine HCl [facility] [address]-89 10 mg Orally Once a day December 17, 2015 Jun 14, 2016 1 tablet Oxycodone HCl [facility] [address]-44 30 MG Orally 2 times a day Apr 29, 2015 1 tablet as needed Cyclobenzaprine HCl [facility] [address]-97 10 MG Orally Three times a day AprJun 05, 2016 1 tablet Lomotil [facility] [address]-81 2.5-0.025 MG Orally Four times a day Aug 31, 2015 1 tablet as needed Protonix [facility] [address]-40 40 mg Once a day September 15, 2014 1 tablet Iron [facility] [address]49-16430 325 (65 Fe) MG Orally twice a day 1 tablet Zoloft [facility] [address]-02 100 MG Once a day Aug 01, 2014 1 tablet Klonopin [facility] [address]-96 2 MG Orally 3 times a day as needed October 13, 2014 1 tablet Meclizine HCl [facility] [address]-09 25 MG Orally Once a day 1 tablet as needed Acyclovir [facility] 54283496000 400 MG TAKE ONE TABLET BY MOUTH TWICE DAILY FOR 7 DAYS Doxepin HCl [facility] [address]-45 100 MG Orally Once a day 2 capsules at bedtime Lyrica [facility] [address]-61 150 MG Orally Twice a day Jun 27, 2014 1 capsule Zofran [facility] [address]-66 4 MG Orally Once a day 2 tablets Procedures Procedure Coding System Code Date Office Visit, Est Pt., Level 3 CPT-4 34309 May 06, 2016 [facility] VISIT ESTABLISHED PATIENT CPT-4 G0467 May 06, 2016 Vital Signs Date/Time: May 06, 2016 Cardiac Monitoring Heart Rate 84 bpm Weight 197.0 lbs Height 67 in BMI 30.85 Index Blood Pressure Diastolic 90 mmHg Blood Pressure Systolic 139 mmHg Results No Known Results Summary Purpose eClinicalWorks Submission
--- OUTSIDE RECORDS SUMMARY | 2016-10-09 11:04 | XMS REPORT ---
Author LINDA Juarez [facility] eClinicalWorks Address Unknown Phone Unavailable Care Team Providers Care Conservation Educator Name Role Phone LINDA BENTLEY CP Unavailable [...] Instructions Start Date End Date Status Dosage Lyrica [facility] [address]-55 150 MG Orally Twice a day Jun 27, 2014 1 capsule [address]olo[address] [facility] [address]-43 100 MG Once a day Aug 01, 2014 1 tablet Oxycodone HCl [facility] [address]-58 30 MG Orally 2 times a day Apr 29, 2015 1 tablet as needed Percocet [facility] [address]-00 10-325 MG every 4 hrs September 15, 2014 1 tablet Meclizine HCl [facility] [address]-40 25 MG Orally 4 times a day February 09, 2015 1 tablet Protonix [facility] [address]-35 40 MG Once a day September 15, 2014 1 tablet Klonopin [facility] [address]-17 2 MG Orally 3 times a day October 13, 2014 take 1 tablet Amitriptyline HCl [facility] [address]-11 150 MG Orally Once a day December 15, 2014 1 tablet at bedtime Procedures Procedure Coding System Code Date Office Visit, Est Pt., Level 3 CPT-4 75830 Jul 06, 2015 [facility] VISIT ESTABLISHED PATIENT CPT-4 G0467 Jul 06, 2015 Vital Signs Date/Time: Jul 06, 2015 Temperature 98.4 F Weight 197 lbs Height 67 in BMI 30.85 Index Blood Pressure Diastolic 88 mmHg Blood Pressure Systolic 138 mmHg Cardiac Monitoring Heart Rate 88 bpm Results No Known Results Summary Purpose eClinicalWorks Submission
--- OUTSIDE RECORDS SUMMARY | 2016-10-09 11:04 | XMS REPORT ---
Author LINDA Juarez [facility] eClinicalWorks Address Unknown Phone Unavailable Care Team Providers Care Cable Placer Name Role Phone LINDA BENTLEY CP Unavailable Allergies, Adverse Reactions, Alerts Substance Reaction Event Type Morphine Info Not Available Drug Allergy Codeine Info Not Available Drug Allergy Problems Problem Type Condition Code Onset Dates Condition Status Assessment Polyneuropathy G62.9 Active Problem Hypertension, benign I10 Active Problem Abdominal pain, left lower quadrant R10.32 Active Problem Hydronephrosis with ureteral stricture, not elsewhere classified N13.1 Active Problem Primary insomnia F51.01 Active Problem 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 Problem Mood disorder F39 Active Problem Chronic fatigue, unspecified R53.82 Active Medications Medication Code System Code Instructions Start Date End Date Status Dosage Oxycodone HCl [facility] [address]-28 30 MG Orally 2 times a day Apr 29, 2015 1 tablet as needed Protonix [facility] [address]-86 40 MG Once a day September 15, 2014 1 tablet Amitriptyline HCl [facility] [address]-48 150 MG Orally Once a day December 15, 2014 1 tablet at bedtime Percocet [facility] [address]-47 10-325 MG every 4 hrs September 15, 2014 1 tablet Zoloft [facility] [address]-40 100 MG Once a day Aug 01, 2014 1 tablet Klonopin [facility] [address]-43 2 MG Orally 2 times a day PRN anxiety October 13, 2014 take 1 tablet Lyrica [facility] [address]-77 150 MG Orally Jun 27, 2014 take 1 capsule by Oral route 2 times per day Meclizine HCl [facility] [address]-08 25 MG Orally 4 times a day February 09, 2015 1 tablet Procedures Procedure Coding System Code Date Office Visit, Est Pt., Level 2 CPT-4 08110 Jun 15, 2015 [facility] VISIT ESTABLISHED PATIENT CPT-4 G0467 Jun 15, 2015 Vital Signs Date/Time: Jun 15, 2015 Temperature 97.9 F Weight 199.6 lbs Height 67 in BMI 31.26 Index Blood Pressure Diastolic 90 mmHg Blood Pressure Systolic 124 mmHg Cardiac Monitoring Heart Rate 88 bpm Results No Known Results Summary Purpose eClinicalWorks Submission
--- OUTSIDE RECORDS SUMMARY | 2016-10-09 11:04 | XMS REPORT ---
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 Problem Malignant neoplasm of rectum 154.1 Active Assessment Chronic fatigue R53.82 Active Problem Failure to thrive 783.41 Active Assessment Other specified diseases of anus and rectum K62.89 Active Problem Anal or rectal pain 569.42 Active Medications Medication Code System Code Instructions Start Date End Date Status Dosage Klonopin [facility] [address]-78 2 MG Orally 2 times a day PRN anxiety October 13, 2014 take 1 tablet Zoloft [facility] [address]-61 100 MG Once a day Aug 01, 2014 1 tablet Dicyclomine HCl [facility] [address]-78 20 MG Orally Four times a day February 09, 2015 Jun 09, 2015 1 tablet Amitriptyline HCl [facility] [address]-06 75 MG Orally Once a day December 15, 2014 1 tablet at bedtime Bactrim DS [facility] [address]-81 800-160 MG Orally 2 times a day May 11, 2015 May 21, 2015 1 tablet Oxycodone HCl [facility] [address]-55 30 MG Orally 2 times a day Apr 29, 2015 1 tablet as needed Lyrica [facility] [address]-06 150 MG Orally Jun 27, 2014 take 1 capsule by Oral route 2 times per day Meclizine HCl [facility] [address]-67 25 MG Orally 4 times a day February 09, 2015 1 tablet Protonix [facility] [address]-78 40 MG Once a day September 15, 2014 1 tablet Percocet [facility] [address]-80 10-325 MG every 4 hrs September 15, 2014 1 tablet Procedures Procedure Coding System Code Date Office Visit, Est Pt., Level 3 CPT-4 11570 May 11, 2015 No Charge CPT-4 86486 May 11, 2015 Vital Signs Date/Time: May 11, 2015 Temperature 97.3 F Weight 188.9 lbs Height 67 in BMI 29.58 Index Blood Pressure Diastolic 94 mmHg Blood Pressure Systolic 136 mmHg Cardiac Monitoring Heart Rate 92 bpm Results No Known Results Summary Purpose eClinicalWorks Submission
--- OUTSIDE RECORDS SUMMARY | 2016-10-09 11:05 | XMS REPORT ---
Author Author LINDA BENTLEY Organization eClinicalWorks Address Unknown Phone Unavailable Care Team Providers Care Carbonation Tester Name Role Phone LINDA BENTLEY CP Unavailable [...] Date End Date Status Dosage Oxycodone HCl [facility] [address]-42 30 MG Orally 2 times a day Apr 29, 2015 1 tablet as needed Results No Known Results Summary Purpose eClinicalWorks Submission
--- OUTSIDE RECORDS SUMMARY | 2016-10-09 11:06 | XMS REPORT ---
Author LINDA Juarez Organization eClinicalWorks Address Unknown Phone Unavailable Care Team Providers Care Shift Supervisor Rn Name Role Phone LINDA BENTLEY CP Unavailable [...]
--- OUTSIDE RECORDS SUMMARY | 2016-10-09 11:06 | XMS REPORT ---
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
--- OUTSIDE RECORDS SUMMARY | 2016-10-09 11:07 | XMS REPORT ---
Author Author LINDA BENTLEY Organization eClinicalWorks Address Unknown Phone Unavailable Care Team Providers Care Evp Business Development Name Role Phone LINDA BENTLEY CP Unavailable [...]
--- OUTSIDE RECORDS SUMMARY | 2016-10-09 11:07 | XMS REPORT ---
Author LINDA Juarez Organization eClinicalWorks Address Unknown Phone Unavailable Care Team Providers Care Changer Fixer Name Role Phone LINDA BENTLEY CP Unavailable [...]
--- OUTSIDE RECORDS SUMMARY | 2016-10-09 11:07 | XMS REPORT ---
Author LINDA Juarez [facility] eClinicalWorks Address Unknown Phone Unavailable Care Team Providers Care Item Repair Manager Name Role Phone LINDA BENTLEY CP Unavailable Allergies, Adverse Reactions, Alerts Substance Reaction Event Type Morphine Info Not Available Drug Allergy Codeine Info Not Available Drug Allergy Problems Problem Type Condition Code Onset Dates Condition Status Assessment Primary insomnia F51.01 Active Problem Hypertension, benign I10 Active Problem Abdominal pain, left lower quadrant R10.32 Active Problem Hydronephrosis with ureteral stricture, not elsewhere classified N13.1 Active Problem Primary insomnia F51.01 Active Problem 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 Problem Mood disorder F39 Active Problem Chronic fatigue, unspecified R53.82 Active Medications Medication Code System Code Instructions Start Date End Date Status Dosage Amitriptyline HCl [facility] [address]-27 150 MG Orally Once a day December 15, 2014 1 tablet at bedtime Percocet [facility] [address]-48 10-325 MG every 4 hrs September 15, 2014 1 tablet Oxycodone HCl [facility] [address]-15 30 MG Orally 2 times a day Apr 29, 2015 1 tablet as needed Lyrica [facility] [address]-81 150 MG Orally Jun 27, 2014 take 1 capsule by Oral route 2 times per day Meclizine HCl [facility] [address]-76 25 MG Orally 4 times a day February 09, 2015 1 tablet Zoloft [facility] [address]-36 100 MG Once a day Aug 01, 2014 1 tablet Klonopin [facility] [address]-91 2 MG Orally 2 times a day PRN anxiety October 13, 2014 take 1 tablet Protonix [facility] [address]-22 40 MG Once a day September 15, 2014 1 tablet Dicyclomine HCl [facility] [address]-61 20 MG Orally Four times a day February 09, 2015 Jun 09, 2015 1 tablet Procedures Procedure Coding System Code Date Office Visit, Est Pt., Level 3 CPT-4 37534 May 29, 2015 [facility] VISIT ESTABLISHED PATIENT CPT-4 G0467 May 29, 2015 Vital Signs Date/Time: May 29, 2015 Temperature 97.7 F Weight 194.3 lbs Height 67 in BMI 30.43 Index Blood Pressure Diastolic 72 mmHg Blood Pressure Systolic 124 mmHg Cardiac Monitoring Heart Rate 88 bpm Results No Known Results Summary Purpose eClinicalWorks Submission
--- OUTSIDE RECORDS SUMMARY | 2016-10-09 11:07 | XMS REPORT ---
Author Author LINDA BENTLEY Organization eClinicalWorks Address Unknown Phone Unavailable Care Team Providers Care Ccu Nurse Name Role Phone LINDA BENTLEY CP Unavailable [...]
--- OUTSIDE RECORDS SUMMARY | 2016-10-09 11:07 | XMS REPORT ---
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 625170777 Problem Hydronephrosis with ureteral stricture, not elsewhere classified N13.1 Active 41650797 Problem Hypertension, benign I10 Active 36733026 Problem Chronic fatigue, unspecified R53.82 Active 388802240 Problem Primary insomnia F51.01 Active 820466704 Problem Abdominal pain, left lower quadrant R10.32 Active 185552115 Problem Mood disorder F39 Active 29412319 ALLERGIES Unknown Allergies SOCIAL HISTORY No smoking Hx information available PLAN OF CARE VITAL SIGNS MEDICATIONS Medication Instructions Dosage Frequency Start Date End Date Duration Status Percocet 10-325 MG 1 tablet 4h Sep, Active Oxycodone HCl 30 MG Orally 2 times a day 1 tablet as needed 12h Apr, Active RESULTS No Results PROCEDURES No Known procedures IMMUNIZATIONS No Known Immunizations
--- OUTSIDE RECORDS SUMMARY | 2016-10-09 11:07 | XMS REPORT ---
Author Author LINDA BENTLEY Organization eClinicalWorks Address Unknown Phone Unavailable Care Team Providers Care Edi Coordinator Name Role Phone LINDA BENTLEY CP Unavailable [...] Date End Date Status Dosage Klonopin [facility] [address]-81 2 MG Orally 3 times a day as needed October 13, 2014 take 1 tablet Results No Known Results Summary Purpose eClinicalWorks Submission
--- OUTSIDE RECORDS SUMMARY | 2016-10-09 11:09 | XMS REPORT ---
Author LINDA Juarez Organization eClinicalWorks Address Unknown Phone Unavailable Care Team Providers Care Vibration Engineer Name Role Phone LINDA BENTLEY CP Unavailable [...] Date End Date Status Dosage Klonopin [facility] [address]-47 2 MG Orally 3 times a day as needed October 13, 2014 take 1 tablet Results No Known Results Summary Purpose eClinicalWorks Submission
--- OUTSIDE RECORDS SUMMARY | 2016-10-09 11:09 | XMS REPORT ---
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 822804138 Problem Hydronephrosis with ureteral stricture, not elsewhere classified N13.1 Active 65623938 Problem Hypertension, benign I10 Active 47846950 Problem Chronic fatigue, unspecified R53.82 Active 640798760 Problem Primary insomnia F51.01 Active 614576120 Problem Abdominal pain, left lower quadrant R10.32 Active 273188647 Problem Mood disorder F39 Active 63391090 ALLERGIES Unknown Allergies SOCIAL HISTORY No smoking Hx information available PLAN OF CARE VITAL SIGNS MEDICATIONS Medication Instructions Dosage Frequency Start Date End Date Duration Status Klonopin 2 MG Orally 3 times a day as needed 1 tablet Sep, Active RESULTS No Results PROCEDURES No Known procedures IMMUNIZATIONS No Known Immunizations
--- OUTSIDE RECORDS SUMMARY | 2016-10-09 11:09 | XMS REPORT ---
Author LINDA Juarez Organization eClinicalWorks Address Unknown Phone Unavailable Care Team Providers Care Store Stock Associate Name Role Phone LINDA BENTLEY CP Unavailable [...] Instructions Start Date End Date Status Dosage oxycodone NDC 0 30 mg October 13, 2014 take 1 tablet (30 mg) by oral route every 6 hours Results No Known Results Summary Purpose eClinicalWorks Submission
--- OUTSIDE RECORDS SUMMARY | 2016-10-09 11:09 | XMS REPORT ---
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 292976699 Problem Hydronephrosis with ureteral stricture, not elsewhere classified N13.1 Active 40516462 Problem Hypertension, benign I10 Active 94582611 Problem Chronic fatigue, unspecified R53.82 Active 913671374 Problem Primary insomnia F51.01 Active 713686870 Problem Abdominal pain, left lower quadrant R10.32 Active 228253227 Problem Mood disorder F39 Active 90067588 ALLERGIES Unknown Allergies SOCIAL HISTORY No smoking Hx information available PLAN OF CARE VITAL SIGNS MEDICATIONS Medication Instructions Dosage Frequency Start Date End Date Duration Status Percocet 10-325 MG 1 tablet 4h Jun, Active Oxycodone HCl 30 MG Orally 2 times a day 1 tablet as needed 12h Jun, Active Klonopin 2 MG Orally 3 times a day as needed 1 tablet Sep, Active RESULTS No Results PROCEDURES No Known procedures IMMUNIZATIONS No Known Immunizations
--- OUTSIDE RECORDS SUMMARY | 2016-10-09 11:11 | XMS REPORT ---
Author Author LINDA BENTLEY Organization eClinicalWorks Address Unknown Phone Unavailable Care Team Providers Care Golf Sales Associate Name Role Phone LINDA BENTLEY CP [...] Instructions Start Date End Date Status Dosage Protonix [facility] [address]-46 40 mg Once a day September 15, 2014 1 tablet Lomotil [facility] [address]-74 2.5-0.025 MG Orally Four times a day Aug 31, 2015 1 tablet as needed Doxepin HCl [facility] 97669275156 100 MG Orally Once a day 2 capsules at bedtime Gabapentin [facility] 09030286206 600 MG 3 times a day 1 tablet Cetirizine HCl [facility] [address]-65 10 mg Orally Once a day December 17, 2015 Jun 14, 2016 1 tablet Promethazine HCl [facility] [address]-01 50 mg Orally 3 times a day Aug 31, 2015 Apr 15, 2016 1 tablet Acyclovir [facility] 94541076419 400 MG TAKE ONE TABLET BY MOUTH TWICE DAILY FOR 7 DAYS Klonopin [facility] [address]-53 2 MG Orally 3 times a day as needed October 13, 2014 1 tablet Oxycodone HCl [facility] [address]-77 30 MG Orally 2 times a day Apr 29, 2015 1 tablet as needed Percocet [facility] [address]-29 10-325 MG every 4 hrs September 15, 2014 1 tablet Zoloft [facility] [address]-07 100 MG Once a day Aug 01, 2014 1 tablet Lyrica [facility] [address]-54 150 MG Orally Twice a day Jun 27, 2014 1 capsule Procedures Procedure Coding System Code Date Office Visit, Est Pt., Level 3 CPT-4 43819 February 08, 2016 [facility] VISIT ESTABLISHED PATIENT CPT-4 G0467 February 08, 2016 Vital Signs Date/Time: February 08, 2016 Cardiac Monitoring Heart Rate 88 bpm Weight 198.0 lbs Height 67 in Blood Pressure Diastolic 92 mmHg Blood Pressure Systolic 145 mmHg Results No Known Results Summary Purpose eClinicalWorks Submission
--- OUTSIDE RECORDS SUMMARY | 2016-10-09 11:11 | XMS REPORT ---
Author LINDA Juarez Organization eClinicalWorks Address Unknown Phone Unavailable Care Team Providers Care Testing And Regulating Chief Name Role Phone LINDA BENTLEY CP Unavailable [...] Start Date End Date Status Dosage Klonopin [facility] [address]-92 2 MG Orally 2 times a day PRN anxiety October 13, 2014 take 1 tablet Results No Known Results Summary Purpose eClinicalWorks Submission
--- OUTSIDE RECORDS SUMMARY | 2016-10-09 11:11 | XMS REPORT ---
Author Author LINDA BENTLEY Organization eClinicalWorks Address Unknown Phone Unavailable Care Team Providers Care System Sales Consultant Name Role Phone LINDA BENTLEY CP Unavailable [...]
--- OUTSIDE RECORDS SUMMARY | 2016-10-09 11:11 | XMS REPORT ---
Author Author LINDA BENTLEY Organization eClinicalWorks Address Unknown Phone Unavailable Care Team Providers Care Suction Plate Roller Hand Name Role Phone LINDA BENTLEY CP [...] Date End Date Status Dosage Oxycodone HCl [facility] [address]-90 30 MG Orally 2 times a day Apr 29, 2015 1 tablet as needed Percocet [facility] [address]-98 10-325 MG every 4 hrs September 15, 2014 1 tablet Results No Known Results Summary Purpose eClinicalWorks Submission
--- OUTSIDE RECORDS SUMMARY | 2016-10-09 11:11 | XMS REPORT ---
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 450282754 Problem Hydronephrosis with ureteral stricture, not elsewhere classified N13.1 Active 12340305 Problem Hypertension, benign I10 Active 90453794 Problem Chronic fatigue, unspecified R53.82 Active 409617946 Problem Primary insomnia F51.01 Active 182157779 Problem Abdominal pain, left lower quadrant R10.32 Active 567630924 Problem Mood disorder F39 Active 83002013 ALLERGIES Unknown Allergies SOCIAL HISTORY No smoking Hx information available PLAN OF CARE VITAL SIGNS MEDICATIONS Medication Instructions Dosage Frequency Start Date End Date Duration Status Gabapentin 600 MG 1 tablet 8h Active RESULTS No Results PROCEDURES No Known procedures IMMUNIZATIONS No Known Immunizations
--- OUTSIDE RECORDS SUMMARY | 2016-10-09 11:11 | XMS REPORT ---
Author Author LINDA BENTLEY Organization eClinicalWorks Address Unknown Phone Unavailable Care Team Providers Care Flow Worker Name Role Phone LINDA BENTLEY CP [...]
--- OUTSIDE RECORDS SUMMARY | 2016-10-09 11:11 | XMS REPORT ---
Author LINDA Juarez Organization eClinicalWorks Address Unknown Phone Unavailable Care Team Providers Care Experimental Mechanic [employer] Name Role Phone LINDA BENTLEY CP Unavailable [...]
--- OUTSIDE RECORDS SUMMARY | 2016-10-09 11:11 | XMS REPORT ---
Author Author LINDA BENTLEY Organization eClinicalWorks Address Unknown Phone Unavailable Care Team Providers Care Transportation Consultant Name Role Phone LINDA BENTLEY CP [...] Date End Date Status Dosage Oxycodone HCl [facility] [address]-46 30 MG Orally 2 times a day Apr 29, 2015 1 tablet as needed Results No Known Results Summary Purpose eClinicalWorks Submission
--- OUTSIDE RECORDS SUMMARY | 2016-10-09 11:12 | XMS REPORT ---
Author LINDA Juarez Organization eClinicalWorks Address Unknown Phone Unavailable Care Team Providers Care Customer Service Teller Name Role Phone LINDA BENTLEY CP Unavailable [...] Start Date End Date Status Dosage Percocet [facility] [address]-26 10-325 MG every 4 hrs September 15, 2014 1 tablet Oxycodone HCl [facility] [address]-72 30 MG Orally 2 times a day Apr 29, 2015 1 tablet as needed Results No Known Results Summary Purpose eClinicalWorks Submission
--- OUTSIDE RECORDS SUMMARY | 2016-10-09 11:12 | XMS REPORT ---
Author Author LINDA BENTLEY Organization eClinicalWorks Address Unknown Phone Unavailable Care Team Providers Care Receiving And Processing Supervisor Name Role Phone LINDA BENTLEY CP [...] Date End Date Status Dosage Klonopin [facility] [address]-43 2 MG Orally 3 times a day as needed October 13, 2014 1 tablet Oxycodone HCl [facility] [address]-73 30 MG Orally 2 times a day Apr 29, 2015 1 tablet as needed Percocet [facility] [address]-14 10-325 MG every 4 hrs September 15, 2014 1 tablet Results No Known Results Summary Purpose eClinicalWorks Submission
--- OUTSIDE RECORDS SUMMARY | 2016-10-09 11:12 | XMS REPORT ---
Author Author LINDA BENTLEY Organization e[employer] Address Unknown Phone Unavailable Care Team Providers Care Redipper Name Role Phone LINDA BENTLEY CP Unavailable [...]
--- OUTSIDE RECORDS SUMMARY | 2016-10-09 11:13 | XMS REPORT ---
Author LINDA Juarez Organization e[employer] Address Unknown Phone Unavailable Care Team Providers Care Computer Help Desk Representative Name Role Phone LINDA BENTLEY CP [...]
--- OUTSIDE RECORDS SUMMARY | 2016-10-09 11:13 | XMS REPORT ---
Author Author LINDA BENTLEY Organization eClinicalWorks Address Unknown Phone Unavailable Care Team Providers Care Boxing Instructor Name Role Phone LINDA BENTLEY CP Unavailable [...]
== END 2016-10-07 00:44 | disposition home or self-care (01) ==
LOC: EDUNIT# 21:36 → ER 21:40
DX: R11.2 Nausea with vomiting, unspecified (principal); N39.0 Urinary tract infection, site not specified; F11.20 Opioid dependence, uncomplicated; I10 Essential (primary) hypertension; Z79.899 Other long term (current) drug therapy; Z90.6 Acquired absence of other parts of urinary tract; Z93.6 Other artificial openings of urinary tract status; Z85.038 Personal history of other malignant neoplasm of large intestine
CPT/HCPCS: 36415; 74020; 80053; 80306; 81000; 82150; 83690; 85025; 87045; 87046; 87088; 87324; 87449; 89055; 96361; 96365; 96375

== ENCOUNTER 2016-10-20 23:31 | Emergency (ER) | payer MEDICARE, MEDICAID ==
[~2016-10-20] VITALS: Ht 170.2 cm; Wt 90.7 kg
[~2016-10-20 23:31] MED LIST changes: +LACT1CAP8 PO; +METR500T PO; +ONDA4TAB8 PO; +PROM25SU43 RC
[2016-10-20 23:45] LABS: BASOPHILS % (AUTO) 0 % (0-10); EOSINOPHILS # (AUTO) 0.2 10^3/uL (0.0-0.3); EOSINOPHILS % (AUTO) 2 % (0-10); LYMPHOCYTES # (AUTO) 2.1 X 10^3 (1.0-4.0); LYMPHOCYTES % (AUTO) 20 % (12-44); MEAN CORPUSCULAR HEMOGLOBIN 29 PG (25-34); MEAN CORPUSCULAR HGB CONC 34 G/DL (32-36); MEAN CORPUSCULAR VOLUME 84 FL (80-99); MEAN PLATELET VOLUME 10.5 FL (7.4-10.4); MONOCYTES # (AUTO) 0.9 X 10^3 (0.0-1.0); MONOCYTES % (AUTO) 9 % (0-12); NEUTROPHILS # (AUTO) 7.3 X 10^3 (1.8-7.8); NEUTROPHILS % (AUTO) 69 % (42-75); PLATELET COUNT 260 10^3/uL (130-400); RED BLOOD COUNT 5.99 10^6/uL (4.35-5.85); RED CELL DISTRIBUTION WIDTH 14.4 % (10.0-14.5); WHITE BLOOD COUNT 10.6 10^3/uL (4.3-11.0)
[2016-10-20] MEDS ORDERED: ONDANSETRON 4 MG/2 ML (SDV) Z0FRAN IVP ONE (23:45)
[2016-10-21 00:10] LABS: ALBUMIN 4.5 G/DL (3.2-4.5); BILIRUBIN,TOTAL 1.2 MG/DL (0.1-1.0); CALCIUM 9.5 MG/DL (8.5-10.1); CREATININE SERUM 1.41 MG/DL (0.60-1.30); MAGNESIUM 2.3 MG/DL (1.8-2.4); POTASSIUM 3.1 MMOL/L (3.6-5.0); TOTAL PROTEIN 7.6 G/DL (6.4-8.2); hs C REACTIVE PROTEIN 0.71 MG/DL (0.00-0.50)
[2016-10-21 00:35] LABS: BILIRUBIN,URINE NEGATIVE (NEGATIVE); KETONES,URINE NEGATIVE (NEGATIVE); LEUKOCYTE ESTERASE ,URINE 3+ (NEGATIVE); NITRITE,URINE POSITIVE (NEGATIVE); PH,URINE 6 (5-9); PROTEIN,URINE 2+ (NEGATIVE); UROBILINOGEN,URINE NORMAL (NORMAL)
[2016-10-21] MEDS ORDERED: NS IV 1000 ML 1,000 ML IV ONE (00:50)
[2016-10-21 00:52] LABS: WBC,URINE 25-50 /HPF
[2016-10-21] MEDS ORDERED: cefTRIAXone INJECTION 1,000 MG in NS (IVPB) 50 ML IV ONE (01:00)
[2016-10-21] MEDS ORDERED: PROMETHAZINE INJ 25 MG/ML (PHENERGAN) AMP IVP ONE (01:00)
[2016-10-21] MEDS ORDERED: D5 1/2 NS W/KCL 20 MEQ/L 1,000 ML IV ONE (01:00)
[2016-10-21] MEDS ORDERED: KETOROLAC 30 MG/ML VIAL ONE (02:31)
[2016-10-21] MEDS ORDERED: KETOROLAC 30 MG/ML VIAL IVP ONE (02:45)
[2016-10-21] MEDS ORDERED: PROM12.59 PO (03:44)
[2016-10-21] MEDS ORDERED: CEPH-507 PO (03:44)
--- NOTE | 2016-10-21 03:44 | ED General ---
General Chief Complaint: General Problems/Pain Stated Complaint: ILLNESS Nursing Triage Note: PT TO ED 6 PER EMS FOR C/O "NOT FEELING THE SAME" X3 DAYS. REPORTS VISUAL DISTURBANCES, DIARRHEA. Nursing Sepsis Screen: No Definite Risk Source of Information: Patient Exam Limitations: No Limitations History of Present Illness Time Seen by Provider: 23:34 Initial Comments This 51-year-old gentleman presents to the emergency room via EMS with complaints of "not feeling well" for 3 days. He reports dizziness, intermittent double vision, generalized weakness, abdominal discomfort, vomiting and diarrhea, shortness of air, and questionable fever. EMS reports he was ambulatory at the scene and walked to the truck and cot on his own power. He also walked downstairs to leave his home. He is alert and oriented. Vital signs are within normal limits. Patient is somnolent. He took his narcotic prescriptions at home. He is known to this provider from prior visits for chronic abdominal problems and chronic pain. Patient is specifically asking for Phenergan and fentanyl in combination. Allergies and Home Medications Allergies Coded Allergies: morphine (Verified Allergy, Intermediate, 02/21/13) codeine (Unverified Adverse Reaction, Unknown, NAUSEA, 03/20/14) Home Medications Cephalexin 500 Mg Capsule, 500 MG PO QID, #28 Prescribed by: SHAY BILLINGS on 10/21/16 0344 Ciprofloxacin HCl 500 Mg Tablet, 500 MG PO BID, #10 Prescribed by: ABRIL KEYS on 09/22/16 1058 Ciprofloxacin HCl 500 Mg Tablet, 500 MG PO BID, #20 Prescribed by: JOSE ANTONIO WILEY on 10/06/16 2355 Clonazepam 2 Mg Tablet, 2 MG PO TID PRN for ANXIETY, (Reported) Gabapentin 600 Mg Tablet, 1,200 MG PO TID, (Reported) TAKES 2 (600 MG) TABLETS Hyoscyamine Sulfate 0.125 Mg Tab.subl, 1-2 TAB SL Q4H, #20 Prescribed by: JOSE ANTONIO WILEY on 10/06/16 2355 Lactobacillus Acidophilus 1 Each Capsule, 2 EACH PO QID, #80 Prescribed by: JOSE ANTONIO WILEY on 10/06/165 Metronidazole 500 Mg Tablet, 500 MG PO QID, #40 Prescribed by: JOSE ANTONIO WILEY on 10/06/165 Ondansetron 4 Mg Tab.rapdis, 4-8 MG PO Q4H, #20 Prescribed by: JOSE ANTONIO WILEY on 10/06/16 2355 Oxycodone HCl 30 Mg Tablet, 30 MG PO BID PRN for SEVERE PAIN, (Reported) Oxycodone HCl/Acetaminophen 1 Each Tablet, 1 TAB PO Q4H PRN for MODERATE PAIN, ( Reported) Promethazine HCl 25 Mg Supp.rect, 25 MG RC Q4H, #10 Prescribed by: JOSE ANTONIO WLIEY on 10/06/16 2355 Promethazine HCl 12.5 Mg Tablet, 12.5 MG PO Q6H PRN for NAUSEA/VOMITING-1ST LINE , #8 Prescribed by: SHAY BILLINGS on 10/21/16 0344 Sertraline HCl 100 Mg Tablet, 100 MG PO DAILY PRN for EMOTIONS, (Reported) LAST FILLED 07/18/16 #30 Constitutional: see HPI EENTM: see HPI Respiratory: see HPI Cardiovascular: no symptoms reported Gastrointestinal: see HPI Genitourinary: no symptoms reported Musculoskeletal: no symptoms reported Skin: no symptoms reported Psychiatric/Neurological: See HPI Hematologic/Lymphatic: No Symptoms Reported Past [id number] Hx Patient Social History Alcohol Use: Denies Use Recreational Drug Use: No Smoking Status: Never a Smoker Recent Foreign Travel: No Contact w/Someone Who Travel: No Recent Infectious Disease Expo: No Recent Hopitalizations: No Immunizations Up To Date Tetanus Booster (TDap): Unknown PED Vaccines UTD: No Seasonal Allergies Seasonal Allergies: No Surgeries HX Surgeries: Yes Surgeries: Abdominal, Bladder Surgery (urostomy), Bowel Surgery, Cystectomy, Orthopedic, Rectal, Renal, Vascular Surgery Respiratory Hx Respiratory Disorders: No Cardiovascular Hx Cardiac Disorders: Yes (PT SELF DC'D BP MEDICATIONS) Cardiac Disorders: Hypertension Neurological Hx Neurological Disorders: Yes Neurological Disorders: Headaches /Migraines Reproductive System Hx Reproductive Disorders: No Sexually Transmitted Disease: No HIV/AIDS: No Genitourinary Hx Genitourinary Disorders: Yes Genitourinary Disorders: Neurogenic Bladder, UTI-Chronic Gastrointestinal Hx Gastrointestinal Disorders: Yes (chronic abdominal pain) Gastrointestinal Disorders: Gastroesophageal Reflux, Gastrointestinal Bleed, Chronic Diarrhea, C-Diff, Hiatal Hernia Musculoskeletal Hx Musculoskeletal Disorders: No Endocrine Hx Endocrine Disorders: No HEENT HX ENT Disorders: Yes (WEARS GLASSES) Loss of Vision: Denies Hearing Impairment: Denies Cancer Hx Cancer: Yes (RECTAL CANCER DX 11/2012--S/P SURGERY, CHEMO AND RADIATION) Cancer: Rectal Psychosocial Hx Psychiatric Problems: Yes Behavioral Health Disorders: Anxiety, Depression Integumentary HX Skin/Integumentary Disorder: No Blood Transfusions Hx Blood Disorders: No Adverse Reaction to a Blood Tr: No Family Medical History Family Medial History: Cataract 03 FATHER, Onset:Unknown Chest pain 03 FATHER, Onset:50's - 60 Family history: Allergy 03 MOTHER Family history: Arthritis 03 FATHER 03 MOTHER Family history: Asthma 03 MOTHER Family history: Cardiovascular disease 03 FATHER Family history: Diabetes mellitus 03 FATHER 03 MOTHER Family history: Hypertension 03 FATHER 03 MOTHER Headache 03 FATHER 03 MOTHER Heart disease 03 FATHER History of - respiratory disease 03 MOTHER Hypercholesterolemia 03 FATHER 03 MOTHER Kidney disease 03 MOTHER Psychotic disorder 03 MOTHER Visual impairment 03 FATHER 03 MOTHER No Family History of: Abdominal aortic aneurysm Westcliffe's disease Alcoholism Aphasia Cancer Cancer of colon Congenital heart disease Congestive heart failure Cystic fibrosis Dementia Dysphagia Family history: Alzheimer's disease Family history: Breast disease Family history: Coronary thrombosis Family history: Gastrointestinal disease Family history: Glaucoma Family history: Osteoporosis Family history: Thyroid disorder Hearing loss Hereditary disease History of - anemia History of - disorder History of drug abuse Human immunodeficiency virus (HIV) seropositivity Infertile Malignant neoplasm of lung Myocardial infarction Parkinson's disease Prostate cancer Seizure disorder Stroke Tuberculosis Physical Exam Vital Signs Vital Sign - Last 12Hours 10/20/16 23:31 Temp 96.8 Pulse 77 Resp 20 B/P (MAP) 133/98 Pulse Ox 99 O2 Delivery Room Air Capillary Refill : Less Than 3 Seconds General Appearance: No Apparent Distress, WD/WN, Other (somnolent) HEENT: PERRL/EOMI, Normal ENT Inspection, Pharynx Normal Neck: Normal Inspection Respiratory: Lungs Clear, Normal Breath Sounds, No Accessory Muscle Use, No Respiratory Distress Cardiovascular: Regular Rate, Rhythm, No Edema, No Murmur Gastrointestinal: Normal Bowel Sounds, Soft, Tenderness (chronic tenderness persists), Other (urostomy intact with clear yellow urine in the bag) Extremity: Normal Inspection, No Pedal Edema Neurologic/Psychiatric: Alert, Oriented x3, No Motor/Sensory Deficits, pulmonary care nurse II- XII Norm as Tested, Other (hypersomnolent) Skin: Normal Color, Warm/Dry Progress/Results/Core Measures Results/Orders Lab Results My Orders Orders - SHAY ALFONSO MD Iv Infusion <= First Hr Ed (10/20/16 ) Medications Given in ED Vital Signs/I&O Blood Pressure Mean: 110 Progress Note : Progress Note Patient was treated with IV fluids and Zofran. Zofran provided insufficient relief for nausea. Phenergan was administered. Patient was given Toradol for pain but specifically asked for fentanyl. This request was denied as he was hypersomnolent and appeared to be in no distress. Patient threatened to leave and attempted to remove his IV multiple times because fentanyl was not administered. Hyperkalemia was treated with potassium in his IV fluids. He was given Rocephin for suspected urinary tract infection. He was ultimately discharged home. Diagnostic Imaging Diagonstic Imaging: Xray Plain Films/CT/US/NM/MRI: chest Comments Chest x-ray viewed by me. Report not available. No definite acute abnormalities appreciated. Official radiologist's interpretation pending. Departure Impression Impression: Primary Impression: Hypokalemia Additional Impressions: Dizziness Nausea vomiting and diarrhea Chronic abdominal pain Urinary tract infection Qualified Codes: N39.0 - Urinary tract infection, site not specified Disposition: HOME, SELF-CARE Condition: Improved Departure-Patient Inst. Decision time for Depature: 03:30 Referrals: [facility] (PCP/Family) Primary Care Physician Patient Instructions: Urinary Tract Infection, Adult (DC) Add. Discharge Instructions: Drink plenty of clear liquids. Use your home medications as prescribed. You may use promethazine as prescribed for nausea and vomiting. Complete your antibiotics as prescribed. Follow-up with your primary care provider as soon as possible. Return to care if symptoms worsen. All discharge instructions reviewed with patient and/or family. Voiced understanding. Scripts Promethazine HCl (Promethazine HCl) 12.5 Mg Tablet 12.5 MG PO Q6H Y for NAUSEA/VOMITING-1ST LINE, #8 TAB Prov: SHAY ALFONSO MD 10/21/16 Cephalexin (Keflex) 500 Mg Capsule 500 MG PO QID, #28 CAP Prov: SHAY ALFONSO MD 10/21/16 Copy Copies To 1: NIKHIL PITTS JOSHUA T MD Oct 21, 2016 03:44
[2016-10-21 04:01] VITALS: BP 118/82
--- NOTE | 2016-10-21 10:40 | Diagnostic Imaging Report ---
EXAMINATION: Portable upright radiograph of the chest. INDICATION: FINDINGS: There is a right internal jugular port without change from 09/21/16. The tip is at the SVC level. The lungs appear clear. The heart size is normal. No effusion or pneumothorax. The mediastinum and angelito appear unremarkable. There is a nodular density seen in the right lung apex measuring 1.2 CM. The patient has history of a rectal cancer. Evaluation with CT chest to rule out metastatic disease is recommended. IMPRESSION: 1.2 CM nodular density in the right lung apex. Further evaluation with CT chest is recommended. Report was faxed to [facility] by german at 8:02 am. Dictated by: Dictated on workstation # [id number]
--- OUTSIDE RECORDS SUMMARY | 2016-11-21 01:06 | XMS REPORT | Continuity of Care Document ---
Author Author [facility] Organization [facility] Address Unknown Phone Unavailable Care Team Providers Care Physical Therapy Professor Name Role Phone Gildardo Walker PCP [phone] Source Comments Some departments are not documenting in the electronic medical record. If you do not see the information that you expected, contact Release of Information in the Health Information Management department at [phone] for further assistance in locating additional records.[facility] Active Allergies and Adverse Reactions Allergen [...] retention 02/10/2014 Rectal cancer (HCC) 02/10/2014 Overview: [id number] S/p brain-adjuvant chemo/XRT S/p LAR with diverting [...]
--- OUTSIDE RECORDS SUMMARY | 2016-11-21 01:12 | XMS REPORT | Continuity of Care Document ---
Author Author [facility] Address Unknown Phone Unavailable Allergies Active Description Code Type Severity Reaction Onset Reported/Identified Relationship to Patient Clinical Status Yes trazodone 50 mg tablet Drug Allergy 10/17/2012 Yes trazodone 50 mg tablet Drug Allergy N/A N/A 10/17/2012 Yes morphine [id number] Drug Allergy Moderate N/A 02/21/2013 Yes codeine [id number] Drug Allergy Unknown NAUSEA 03/20/2014 Medications Problems [...] VIRAJ SOLIS, ROXI Oseguera Ot Z79.899 OTHER INTERMEDIATE (CURRENT) DRUG THERAPY 06/15/1108 VIRAJ SOLIS, ROXI [...] JANINE HERNDON MD N 796.2 PREHYPERTENSION 09/24/2011 LINDA BENTLEY APRN T [...] BENTLEY APRN 578.1 BLOOD IN STOOL 08/03/2012 IRVER ARCE MD 578.1 BLOOD IN STOOL 08/03/2012 [...] 569.42 ANAL OR RECTAL PAIN 10/03/2012 SHEREE LORRY WEIGHER, LINDA T 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 [...] APRN 599.0 URINARY TRACT INFECTION 01/01/2013 SHEREE LORRY WEIGHER, LINDA T 789.05 ABDOMINAL PAIN PERIUMBILIC 01/01/2013 [...] LINDA BENTLEY APRN 591 HYDRONEPHROSIS 05/20/2013 LINDA BENLTEY APRN 591 HYDRONEPHROSIS 05/20/2013 LINDA BENTLEY APRN [...] CALI MD Ot 401.9 HYPERTENSION NOS 08/08/2013 ROXI CALI MD Ot 530.11 REFLUX ESOPHAGITIS 08/08/2013 ROXI CALI MD Ot 531.90 STOMACH ULCER NOS [...] Ot V10.06 HX-RECTAL ANAL MALIGN 08/08/2013 ROXI CALI MD Ot V13.02 PERSONAL HISTORY, [...] BENTLEY APRN T 357.9 NEUROPATHY UNSP 12/11/2013 JANIEN HERNDON MD N 357.9 NEUROPATHY UNSP 12/11/2013 [...] Ot V15.3 HX OF IRRADIATION 12/23/2013 ROXI CLAI MD Ot V58.69 OTH MED,LT,CURRENT USE 12/23/2013 [...] LINDA BENTLEY Ot 591 06/20/2014 LINDA BENTLEY PARK SUPERINTENDENT Ot 789.05 06/20/2014 CLAUDE SOLIS, RIVER Fenton [...] ADOLPH M Ot V74.8 03/26/2015 TED PA PARK SUPERINTENDENT Ot 154.1 03/26/2015 TED PA PARK SUPERINTENDENT Ot 280.9 03/26/2015 TED PA S PARK SUPERINTENDENT Ot 311 03/26/2015 TED PA S PARK SUPERINTENDENT Ot 530.81 03/26/2015 TED PA S PARK SUPERINTENDENT Ot 536.3 03/26/2015 TED PA S PARK SUPERINTENDENT Ot 607.84 03/26/2015 TED PA S PARK SUPERINTENDENT Ot V58.69 03/26/2015 TED PA PARK SUPERINTENDENT Ot 154.1 03/26/2015 TED PA S PARK SUPERINTENDENT Ot 280.9 03/26/2015 TED PA S PARK SUPERINTENDENT Ot 311 03/26/2015 TED PA S PARK SUPERINTENDENT Ot 530.81 03/26/2015 TED PA S PARK SUPERINTENDENT Ot 536.3 03/26/2015 TED PA S PARK SUPERINTENDENT Ot 607.84 03/26/2015 TED PA S PARK SUPERINTENDENT Ot V58.69 03/26/2015 VIRAJ SOLIS, ROXI Oseguera [...] JANINE HERNDON MD Ot E87.6 HYPOKALEMIA 03/29/2015 JANINE HERNDON MD Ot I10 ESSENTIAL (PRIMARY) HYPERTENSION [...] 03/29/2015 JANINE HERNDON MD Ot V58.69 05/11/2015 LINDA CASAS DO Ot K76.0 FATTY (CHANGE OF) [...] PRE-PROCEDURAL LABORATORY EXAMINATION 11/10/2015 SANTOS SOLIS, ADOLPH Jon Ot V74.8 SCREEN-BACTERIAL DIS NEC 11/10/2015 PA TED S PARK SUPERINTENDENT Ot 154.1 MALIGNANT NEOPL RECTUM 11/10/2015 PA, HILAH S PARK SUPERINTENDENT Ot 280.9 IRON DEFIC ANEMIA NOS 11/10/2015 PA HILAH S PARK SUPERINTENDENT Ot 311 DEPRESSIVE DISORDER NEC 11/10/2015 PA HILAH S PARK SUPERINTENDENT Ot 530.81 ESOPHAGEAL REFLUX 11/10/2015 PA TED S PARK SUPERINTENDENT Ot 536.3 GASTROPARESIS 11/10/2015 PA, CRISTOAH S PARK SUPERINTENDENT Ot 607.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, ORGANIC ORIGN 11/10/2015 PA HILAH S PARK SUPERINTENDENT Ot V58.69 OTH MED,LT,CURRENT USE 11/10/2015 PA TED S PARK SUPERINTENDENT Ot 154.1 MALIGNANT NEOPL RECTUM 11/10/2015 PA TED S PARK SUPERINTENDENT Ot 280.9 IRON DEFIC ANEMIA NOS 11/10/2015 PA HILAH S PARK SUPERINTENDENT Ot 311 DEPRESSIVE DISORDER NEC 11/10/2015 PA TED S PARK SUPERINTENDENT Ot 530.81 ESOPHAGEAL REFLUX 11/10/2015 PA, TED S PARK SUPERINTENDENT Ot 536.3 GASTROPARESIS 11/10/2015 PA, TED S PARK SUPERINTENDENT Ot 607.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, ORGANIC ORIGN 11/10/2015 THIERNO TED S PARK SUPERINTENDENT Ot V58.69 OTH MED,LT,CURRENT USE 11/10/2015 VIRAJ [...] Ot R10.84 GENERALIZED ABDOMINAL PAIN 12/30/2015 SHAY ALFONSO MD T Ot R11.2 NAUSEA [...] Ot R10.30 LOWER ABDOMINAL PAIN, UNSPECIFIED 02/28/2016 LINDA CASAS DO Ot R11.2 NAUSEA WITH VOMITING, UNSPECIFIED 02/28/2016 LINDA CASAS DO Ot 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 03/01/2016 SANTOS SOLIS, ADOLPH Jon Ot V72.84 EXAM PRE-OPERATIVE NOS 03/01/2016 SANTOS SOLIS, ADOLPH Jno Ot 153.9 MALIGNANT LOI COLON NOS 03/01/2016 SANTOS SOLIS, ADOLPH Jon Ot V72.81 KMCB-[id number] CARDIOVASCULAR 03/01/2016 SANTOS SOLIS, ADOLPH Jon Ot [...] NOS 03/03/2016 ADOLPH GRAHAM MD Ot V72.81 ZQIX-DET-SRFENELMB CARDIOVASCULAR 03/03/2016 ADOLPH GRAHAM MD Ot V74.8 SCREEN-BACTERIAL DIS NEC 03/03/2016 LINDA BENTLEY PARK SUPERINTENDENT Ot 591 HYDRONEPHROSIS 03/03/2016 LINDA BENTLEY PARK SUPERINTENDENT Ot 789.05 ABDOMINAL PAIN, PERIUMBILIC 03/03/2016 CLAUDE SOLSI, RIVER Fenton Ot 788.1 DYSURIA 03/03/2016 ROXI [...] ROXI Oseguera Ot 311 03/11/2016 VIRAJ SOLIS, ROIX Ana Rosa Ot 780.52 03/11/2016 VIRAJ SOLIS, [...] Ot 591 HYDRONEPHROSIS 03/15/2016 SANTOS SOLIS, ADOLPH Jon Ot 154.1 MALIGNANT NEOPL RECTUM 03/15/2016 SANTOS SOLIS, ADOLPH Jon Ot V72.63 PRE-PROCEDURAL LABORATORY EXAMINATION 03/15/2016 SANTOS SOLIS, ADOLPH Jon Ot V74.8 SCREEN-BACTERIAL DIS NEC 03/15/2016 TED PA PARK SUPERINTENDENT Ot 154.1 MALIGNANT NEOPL RECTUM 03/15/2016 TED PA PARK SUPERINTENDENT Ot 280.9 IRON DEFIC ANEMIA NOS 03/15/2016 TED PA PARK SUPERINTENDENT Ot 311 DEPRESSIVE DISORDER NEC 03/15/2016 TED PA PARK SUPERINTENDENT Ot 530.81 ESOPHAGEAL REFLUX 03/15/2016 TED PA PARK SUPERINTENDENT Ot 536.3 GASTROPARESIS 03/15/2016 TED PA PARK SUPERINTENDENT Ot 607.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, ORGANIC ORIGN 03/15/2016 TED PAP Ot V58.69 OTH MED,LT,CURRENT USE 03/15/2016 TED PA PARK SUPERINTENDENT Ot 154.1 MALIGNANT NEOPL RECTUM 03/15/2016 TED PA PARK SUPERINTENDENT Ot 280.9 IRON DEFIC ANEMIA NOS 03/15/2016 CRISTO PAMIGUEL A Juan PARK SUPERINTENDENT Ot 311 DEPRESSIVE DISORDER NEC 03/15/2016 CRISTO PAMIGUEL A Juan PARK SUPERINTENDENT Ot 530.81 ESOPHAGEAL REFLUX 03/15/2016 THIERNO TED Juan PARK SUPERINTENDENT Ot 536.3 GASTROPARESIS 03/15/2016 THIERNO TED Juan PARK SUPERINTENDENT Ot 607.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, ORGANIC ORIGN 03/15/2016 PATED Juan PARK SUPERINTENDENT Ot V58.69 OTH MED,LT,CURRENT USE 03/15/2016 VIRAJ SOLIS, ROXI Ana Rosa Ot 154.1 MALIGNANT NEOPL RECTUM 03/15/2016 VIRAJ SOLIS, ROXI Oseguera Ot 154.1 MALIGNANT [...] Ot G47.00 INSOMNIA, UNSPECIFIED 03/28/2016 VIRAJ SOLIS, RXOI Oseguera Ot N39.490 OVERFLOW INCONTINENCE 03/28/2016 VIRAJ SOLIS, ROXI Ana Rosa Ot Z79.899 OTHER ORTHOPEDIC PHYSICAL THERAPIST (CURRENT) DRUG THERAPY 03/28/2016 VIRAJ SOLIS, ROXI [...] V74.8 SCREEN-BACTERIAL DIS NEC 04/14/2016 TED PA PARK SUPERINTENDENT Ot 154.1 MALIGNANT NEOPL RECTUM 04/14/2016 CRISTO PAMIGUEL A Drake PARK SUPERINTENDENT Ot 280.9 IRON DEFIC ANEMIA NOS 04/14/2016 TED PA PARK SUPERINTENDENT Ot 311 DEPRESSIVE DISORDER NEC 04/14/2016 TED PA PARK SUPERINTENDENT Ot 530.81 ESOPHAGEAL REFLUX 04/14/2016 TED PA PARK SUPERINTENDENT Ot 536.3 GASTROPARESIS 04/14/2016 TED PA PARK SUPERINTENDENT Ot 607.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, ORGANIC ORIGN 04/14/2016 TED PA PARK SUPERINTENDENT Ot V58.69 OTH MED,LT,CURRENT USE 04/14/2016 TED PA PARK SUPERINTENDENT Ot 154.1 MALIGNANT NEOPL RECTUM 04/14/2016 TED PA PARK SUPERINTENDENT Ot 280.9 IRON DEFIC ANEMIA NOS 04/14/2016 PATED Juan PARK SUPERINTENDENT Ot 311 DEPRESSIVE DISORDER NEC 04/14/2016 TED PA PARK SUPERINTENDENT Ot 530.81 ESOPHAGEAL REFLUX 04/14/2016 TED PA PARK SUPERINTENDENT Ot 536.3 GASTROPARESIS 04/14/2016 PATED Juan PARK SUPERINTENDENT Ot 607.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, ORGANIC ORIGN 04/14/2016 TED PA PARK SUPERINTENDENT Ot V58.69 OTH MED,LT,CURRENT USE 04/14/2016 ROXI [...] 04/14/2016 ROXI CALI MD Ot Z79.899 OTHER INTERMEDIATE (CURRENT) DRUG THERAPY 04/14/2016 ROXI CALI MD [...] 04/18/2016 ROXI CALI MD, Ot Z79.899 OTHER INTERMEDIATE (CURRENT) DRUG THERAPY 04/18/2016 ROXI CALI MD [...] 05/17/2016 ROXI CALI MD, Ot Z79.899 OTHER INTERMEDIATE (CURRENT) DRUG THERAPY 05/17/2016 ROXI CALI MD, [...] 06/07/2016 ROXI CALI MD, Ot Z79.899 OTHER ORTHOPEDIC PHYSICAL THERAPIST (CURRENT) DRUG THERAPY 06/07/2016 ROXI CALI MD [...] 06/16/2016 ROXI CALI MD, Ot Z79.899 OTHER INTERMEDIATE (CURRENT) DRUG THERAPY 06/16/2016 VIRAJ SOLIS, ROXI [...] V72.63 PRE-PROCEDURAL LABORATORY EXAMINATION 08/13/2016 SANTOS SOLIS, ADOLPH Jon Ot V74.8 SCREEN-BACTERIAL DIS NEC 08/13/2016 TED PA S PARK SUPERINTENDENT Ot 154.1 MALIGNANT NEOPL RECTUM 08/13/2016 TED PA S PARK SUPERINTENDENT Ot 280.9 IRON DEFIC ANEMIA NOS 08/13/2016 TED PA S PARK SUPERINTENDENT Ot 311 DEPRESSIVE DISORDER NEC 08/13/2016 TED PA S PARK SUPERINTENDENT Ot 530.81 ESOPHAGEAL REFLUX 08/13/2016 TED PA S PARK SUPERINTENDENT Ot 536.3 GASTROPARESIS 08/13/2016 TED PA S PARK SUPERINTENDENT Ot 607.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, ORGANIC ORIGN 08/13/2016 TED PA S PARK SUPERINTENDENT Ot V58.69 OTH MED,LT,CURRENT USE 08/13/2016 TED PA S PARK SUPERINTENDENT Ot 154.1 MALIGNANT NEOPL RECTUM 08/13/2016 TED PA S PARK SUPERINTENDENT Ot 280.9 IRON DEFIC ANEMIA NOS 08/13/2016 CRISTO PAAH S PARK SUPERINTENDENT Ot 311 DEPRESSIVE DISORDER NEC 08/13/2016 TED PA S PARK SUPERINTENDENT Ot 530.81 ESOPHAGEAL REFLUX 08/13/2016 PATED Juan S PARK SUPERINTENDENT Ot 536.3 GASTROPARESIS 08/13/2016 PATED Juan S PARK SUPERINTENDENT Ot 607.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, ORGANIC ORIGN 08/13/2016 TED PA S PARK SUPERINTENDENT Ot V58.69 OTH MED,LT,CURRENT USE 08/13/2016 VIRAJ [...] 08/13/2016 ROXI CALI MD Ot Z79.899 OTHER INTERMEDIATE (CURRENT) DRUG THERAPY 08/13/2016 ROXI CALI MD [...] 08/14/2016 ROXI CALI MD Ot Z79.899 OTHER ORTHOPEDIC PHYSICAL THERAPIST (CURRENT) DRUG THERAPY 08/14/2016 ROXI CALI MD [...] 08/14/2016 SHAY ALFONSO MD Ot Z79.899 OTHER ORTHOPEDIC PHYSICAL THERAPIST (CURRENT) DRUG THERAPY 08/14/2016 SHAY ALFONSO MD [...] 08/15/2016 SHAY ALFONSO MD Ot Z79.899 OTHER ORTHOPEDIC PHYSICAL THERAPIST (CURRENT) DRUG THERAPY 08/15/2016 SHAY ALFONSO MD [...] SHAY ALFONSO MD T Ot Z79.899 OTHER ORTHOPEDIC PHYSICAL THERAPIST (CURRENT) DRUG THERAPY 08/16/2016 SHAY ALFONSO MD [...] 08/17/2016 ROXI CALI MD Ot Z79.899 OTHER INTERMEDIATE (CURRENT) DRUG THERAPY 08/17/2016 ROXI CALI MD [...] 08/17/2016 SHAY ALFONSO MD Ot Z79.899 OTHER ORTHOPEDIC PHYSICAL THERAPIST (CURRENT) DRUG THERAPY 08/17/2016 SHAY ALFONSO MD [...] Ot R19.7 DIARRHEA, UNSPECIFIED 08/19/2016 NATY SOLIS, SHYA Lester Ot Z79.899 OTHER ORTHOPEDIC PHYSICAL THERAPIST (CURRENT) DRUG THERAPY 08/19/2016 NATY SOLIS, SHAY [...] 09/09/2016 ROXI CALI MD Ot Z79.899 OTHER INTERMEDIATE (CURRENT) DRUG THERAPY 09/09/2016 ROXI CALI MD [...] 09/13/2016 ROXI CALI MD Ot Z79.899 OTHER INTERMEDIATE (CURRENT) DRUG THERAPY 09/13/2016 ROXI CALI MD [...] SCREEN-BACTERIAL DIS NEC 09/21/2016 TED PA S PARK SUPERINTENDENT Ot 154.1 MALIGNANT NEOPL RECTUM 09/21/2016 PATED Juan S PARK SUPERINTENDENT Ot 280.9 IRON DEFIC ANEMIA NOS 09/21/2016 TED PA S PARK SUPERINTENDENT Ot 311 DEPRESSIVE DISORDER NEC 09/21/2016 PATED Juan S PARK SUPERINTENDENT Ot 530.81 ESOPHAGEAL REFLUX 09/21/2016 TED PA S PARK SUPERINTENDENT Ot 536.3 GASTROPARESIS 09/21/2016 TED PA S PARK SUPERINTENDENT Ot 607.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, ORGANIC ORIGN 09/21/2016 PATED Juan S PARK SUPERINTENDENT Ot V58.69 OTH MED,LT,CURRENT USE 09/21/2016 TED PA S PARK SUPERINTENDENT Ot 154.1 MALIGNANT NEOPL RECTUM 09/21/2016 PATED Juan S PARK SUPERINTENDENT Ot 280.9 IRON DEFIC ANEMIA NOS 09/21/2016 PATED Juan S PARK SUPERINTENDENT Ot 311 DEPRESSIVE DISORDER NEC 09/21/2016 TED PA S PARK SUPERINTENDENT Ot 530.81 ESOPHAGEAL REFLUX 09/21/2016 PATED Juan S PARK SUPERINTENDENT Ot 536.3 GASTROPARESIS 09/21/2016 PATED Juan S PARK SUPERINTENDENT Ot 607.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, ORGANIC ORIGN 09/21/2016 TED PA S PARK SUPERINTENDENT Ot V58.69 OTH MED,LT,CURRENT USE 09/21/2016 VIRAJ [...] VIRAJ SOLIS, ROXI Oseguera Ot Z79.899 OTHER INTERMEDIATE (CURRENT) DRUG THERAPY 09/21/2016 VIRAJ SOLIS, ROXI [...] SCREEN-BACTERIAL DIS NEC 09/21/2016 TED PA S PARK SUPERINTENDENT Ot 154.1 MALIGNANT NEOPL RECTUM 09/21/2016 TED PA S PARK SUPERINTENDENT Ot 280.9 IRON DEFIC ANEMIA NOS 09/21/2016 TED PA S PARK SUPERINTENDENT Ot 311 DEPRESSIVE DISORDER NEC 09/21/2016 TED PA S PARK SUPERINTENDENT Ot 530.81 ESOPHAGEAL REFLUX 09/21/2016 TED PA S PARK SUPERINTENDENT Ot 536.3 GASTROPARESIS 09/21/2016 TED PA S PARK SUPERINTENDENT Ot 607.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, ORGANIC ORIGN 09/21/2016 TED PA S PARK SUPERINTENDENT Ot V58.69 OTH MED,LT,CURRENT USE 09/21/2016 TED PA S PARK SUPERINTENDENT Ot 154.1 MALIGNANT NEOPL RECTUM 09/21/2016 TED PA S PARK SUPERINTENDENT Ot 280.9 IRON DEFIC ANEMIA NOS 09/21/2016 TED PA S PARK SUPERINTENDENT Ot 311 DEPRESSIVE DISORDER NEC 09/21/2016 TED PA S PARK SUPERINTENDENT Ot 530.81 ESOPHAGEAL REFLUX 09/21/2016 TED PA S PARK SUPERINTENDENT Ot 536.3 GASTROPARESIS 09/21/2016 PATED Juan S PARK SUPERINTENDENT Ot 607.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, ORGANIC ORIGN 09/21/2016 TED PA S PARK SUPERINTENDENT Ot V58.69 OTH MED,LT,CURRENT USE 09/21/2016 ROXI CALI MD Ot 154.1 MALIGNANT NEOPL RECTUM 09/21/2016 ROXI CALI MD Ot 154.1 MALIGNANT NEOPL RECTUM 09/21/2016 VIRAJ SOLIS, ROXI Oseguera Ot C20 MALIGNANT NEOPLASM OF RECTUM 09/21/2016 ROXI CALI MD Ot C20 MALIGNANT NEOPLASM OF RECTUM 09/21/2016 ROXI CALI MD, Ot D50.9 IRON DEFICIENCY ANEMIA, UNSPECIFIED 09/21/2016 ROXI CALI MD, Ot F33.9 MAJOR DEPRESSIVE DISORDER, RECURRENT, UN 09/21/2016 ROXI CALI MD, Ot G47.00 INSOMNIA, UNSPECIFIED 09/21/2016 ROXI CALI MD, Ot N39.490 OVERFLOW INCONTINENCE 09/21/2016 ROXI CALI MD Ot Z79.899 OTHER ORTHOPEDIC PHYSICAL THERAPIST (CURRENT) DRUG THERAPY 09/21/2016 ROXI CALI MD, Ot Z92.3 PERSONAL HISTORY OF IRRADIATION 09/22/2016 KEYS DO ABRIL Ot C20 MALIGNANT NEOPLASM OF RECTUM 09/22/2016 KEYS DO, ABRIL Ot E87.6 HYPOKALEMIA 09/22/2016 KEYS DO ABRIL Ot F32.9 MAJOR DEPRESSIVE DISORDER, SINGLE EPISOD 09/22/2016 KEYS DO ABRIL Ot F41.9 ANXIETY DISORDER, UNSPECIFIED 09/22/2016 KEYS DO ABRIL Ot G89.29 OTHER CHRONIC PAIN 09/22/2016 KEYS DO, ABRIL Ot I10 ESSENTIAL (PRIMARY) HYPERTENSION 09/22/2016 KEYS DO, ABRIL Ot K21.9 GASTRO-ESOPHAGEAL REFLUX DISEASE WITHOUT 09/22/2016 KEYS DO, ABRIL Ot K59.09 OTHER CONSTIPATION 09/22/2016 KEYS DO, ABRIL Ot N39.0 URINARY TRACT INFECTION, SITE NOT SPECIF 09/22/2016 KEYS DO, ABRIL Ot R41.82 ALTERED MENTAL STATUS, UNSPECIFIED 09/22/2016 KEYS DO ABRIL Ot T40.2X5A ADVERSE EFFECT OF OTHER OPIOIDS, INITIAL 09/22/2016 KEYS DO, ABRIL Ot Z93.2 ILEOSTOMY STATUS 09/22/2016 KEYS DO ABRIL Ot 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 10/06/2016 ROXI CALI MD Ot C20 MALIGNANT NEOPLASM OF RECTUM 10/06/2016 ROXI CALI MD, Ot D50.9 IRON DEFICIENCY ANEMIA, UNSPECIFIED 10/06/2016 ROXI CALI MD, Ot F33.9 MAJOR DEPRESSIVE DISORDER, RECURRENT, UN 10/06/2016 ROXI CALI MD Ot G47.00 INSOMNIA, UNSPECIFIED 10/06/2016 ROXI CALI MD, Ot N39.490 OVERFLOW INCONTINENCE 10/06/2016 VIRAJ SOLIS, ROXI Oseguera Ot Z79.899 OTHER INTERMEDIATE (CURRENT) DRUG THERAPY 10/06/2016 VIRAJ SOLIS, ROXI Oseguera Ot Z92.3 PERSONAL HISTORY OF IRRADIATION 10/06/2016 LIZBETH SOLIS, SHANTE A Ot 154.1 MALIGNANT NEOPL RECTUM 10/06/2016 LIZBETH SOLIS, SHANTE Peña Ot 571.8 CHRONIC LIVER DIS NEC 10/06/2016 LIZBETH SOLIS, SHANTE Peña Ot 591 HYDRONEPHROSIS 10/06/2016 SANTOS SOLIS, ADOLPH Jon Ot 154.1 MALIGNANT NEOPL RECTUM 10/06/2016 SANTOS SOLIS, ADOLPH Jon Ot V72.63 PRE-PROCEDURAL LABORATORY EXAMINATION 10/06/2016 SANTOS SOLIS, ADOLPH Jon Ot V74.8 SCREEN-BACTERIAL DIS NEC 10/06/2016 TED PA S PARK SUPERINTENDENT Ot 154.1 MALIGNANT NEOPL RECTUM 10/06/2016 TED PA S PARK SUPERINTENDENT Ot 280.9 IRON DEFIC ANEMIA NOS 10/06/2016 CRISTO PAAH S PARK SUPERINTENDENT Ot 311 DEPRESSIVE DISORDER NEC 10/06/2016 CRISTO PAAH S PARK SUPERINTENDENT Ot 530.81 ESOPHAGEAL REFLUX 10/06/2016 PATED S PARK SUPERINTENDENT Ot 536.3 GASTROPARESIS 10/06/2016 PACRISTOAH S PARK SUPERINTENDENT Ot 607.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, ORGANIC ORIGN 10/06/2016 CRISTO PAAH S PARK SUPERINTENDENT Ot V58.69 OTH MED,LT,CURRENT USE 10/06/2016 PACRISTOAH S PARK SUPERINTENDENT Ot 154.1 MALIGNANT NEOPL RECTUM 10/06/2016 CRISTO PAAH S PARK SUPERINTENDENT Ot 280.9 IRON DEFIC ANEMIA NOS 10/06/2016 THIERNO HILAH S PARK SUPERINTENDENT Ot 311 DEPRESSIVE DISORDER NEC 10/06/2016 PA HILAH S PARK SUPERINTENDENT Ot 530.81 ESOPHAGEAL REFLUX 10/06/2016 PA HILAH S PARK SUPERINTENDENT Ot 536.3 GASTROPARESIS 10/06/2016 PACRISTOAH S PARK SUPERINTENDENT Ot 607.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, ORGANIC ORIGN 10/06/2016 CRISTO PAAH S PARK SUPERINTENDENT Ot V58.69 OTH MED,LT,CURRENT USE 10/06/2016 ROXI CALI MD Ot 154.1 MALIGNANT NEOPL RECTUM 10/06/2016 ROXI CALI MD Ot 154.1 MALIGNANT NEOPL RECTUM 10/06/2016 VIRAJ SOLIS, ROXI Oseguera Ot C20 MALIGNANT NEOPLASM OF RECTUM 10/06/2016 ROXI CALI MD Ot C20 MALIGNANT NEOPLASM OF RECTUM 10/06/2016 ROXI CALI MD Ot D50.9 IRON DEFICIENCY ANEMIA, UNSPECIFIED 10/06/2016 ROXI CALI MD Ot F33.9 MAJOR DEPRESSIVE DISORDER, RECURRENT, UN 10/06/2016 ROXI CALI MD Ot G47.00 INSOMNIA, UNSPECIFIED 10/06/2016 ORXI CALI MD Ot N39.490 OVERFLOW INCONTINENCE 10/06/2016 ROXI CALI MD Ot Z79.899 OTHER INTERMEDIATE (CURRENT) DRUG THERAPY 10/06/2016 ROXI CALI MD Ot Z92.3 PERSONAL HISTORY OF IRRADIATION 10/07/2016 INEZ DO, JOSE ANTONIO K Ot F11.20 OPIOID DEPENDENCE, UNCOMPLICATED 10/07/2016 INEZ DO, JOSE ANTONIO K Ot I10 ESSENTIAL (PRIMARY) HYPERTENSION 10/07/2016 INEZ DO, JOSE ANTONIO K Ot N39.0 URINARY TRACT INFECTION, SITE NOT SPECIF 10/07/2016 INEZ DO, JOSE ANTONIO K Ot R11.2 NAUSEA WITH VOMITING, UNSPECIFIED 10/07/2016 INEZ DO, JOSE ANTONIO K Ot R42 DIZZINESS AND GIDDINESS 10/07/2016 INEZ DO JOSE ANTONIO K Ot Z79.899 OTHER ORTHOPEDIC PHYSICAL THERAPIST (CURRENT) DRUG THERAPY 10/07/2016 INEZ DO JOSE ANTONIO K Ot Z85.038 PERSONAL HISTORY OF MALIGNANT NEOPLASM O 10/07/2016 INEZ BEATRICE DICKSONA Ana Rosa Ot Z90.6 ACQUIRED ABSENCE OF OTHER PARTS OF URINA 10/07/2016 INEZ BEATRICE DICKSONA K Ot 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 10/07/2016 INEZ DO, JOSE ANTONIO K Ot F11.20 OPIOID DEPENDENCE, UNCOMPLICATED 10/07/2016 INEZ DO, JOSE ANTONIO K Ot I10 ESSENTIAL (PRIMARY) HYPERTENSION 10/07/2016 INEZ DO, JOSE ANTONIO K Ot N39.0 URINARY TRACT INFECTION, SITE NOT SPECIF 10/07/2016 INEZ DO, JOSE ANTONIO K Ot R11.2 NAUSEA WITH VOMITING, UNSPECIFIED 10/07/2016 INEZ DO, JOSE ANTONIO K Ot R42 DIZZINESS AND GIDDINESS 10/07/2016 INEZ DO JOSE ANTONIO K Ot Z79.899 OTHER INTERMEDIATE (CURRENT) DRUG THERAPY 10/07/2016 INEZ DICKSON JOSE ANTONIO Ana Rosa Ot Z85.038 PERSONAL HISTORY OF MALIGNANT NEOPLASM O 10/07/2016 INEZ DICKSON JOSE ANTONIO Ana Rosa Ot Z90.6 ACQUIRED ABSENCE OF OTHER PARTS OF URINA 10/07/2016 INEZ DICKSON JOSE ANTONIO K Ot 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 10/12/2016 ROXI CALI MD Ot C20 MALIGNANT NEOPLASM OF RECTUM 10/12/2016 VIRAJ SOLIS, ROXI Oseguera Ot D50.9 IRON DEFICIENCY ANEMIA, UNSPECIFIED 10/12/2016 ROXI CALI MD Ot F33.9 MAJOR DEPRESSIVE DISORDER, RECURRENT, UN 10/12/2016 ROXI CALI MD Ot G47.00 INSOMNIA, UNSPECIFIED 10/12/2016 ROXI CALI MD Ot N39.490 OVERFLOW INCONTINENCE 10/12/2016 ROXI CALI MD Ot Z79.899 OTHER INTERMEDIATE (CURRENT) DRUG THERAPY 10/12/2016 ROXI CALI MD Ot Z92.3 PERSONAL HISTORY OF IRRADIATION 10/15/2016 INEZ DICKSON JOSE ANTONIO K Ot G89.29 OTHER CHRONIC PAIN 10/15/2016 INEZ DICKSON JOSE ANTONIO K Ot K76.0 FATTY (CHANGE OF) LIVER, NOT ELSEWHERE C 10/15/2016 JOSE ANTONIO WILEY DO Ot R10.84 GENERALIZED ABDOMINAL PAIN 10/15/2016 JOSE ANTONIO WILEY DO Ot R11.2 NAUSEA WITH VOMITING, UNSPECIFIED 10/15/2016 INEZ DICKSON JOSE ANTONIO Ana Rosa Ot Z85.048 PRSNL HX OF MALIG NEOPLM OF RECTUM, RECT 10/15/2016 JOSE ANTONIO WILEY DO Ot Z93.2 ILEOSTOMY STATUS 10/15/2016 JOSE ANTONIO WILEY DO Ot Z98.0 INTESTINAL BYPASS AND ANASTOMOSIS STATUS 10/21/2016 NATY SOLIS, SHAY Lester Ot E87.6 HYPOKALEMIA 10/21/2016 SHAY ALFONSO MD Ot N39.0 URINARY TRACT INFECTION, SITE NOT SPECIF 10/21/2016 SHAY ALFONSO MD Ot R10.84 GENERALIZED ABDOMINAL PAIN 10/21/2016 SHAY ALFONSO MD Ot R11.2 NAUSEA WITH VOMITING, UNSPECIFIED 10/21/2016 BRUEGGEMANN MD, SHAY T Ot R19.7 DIARRHEA, UNSPECIFIED 10/21/2016 SHAY ALFONSO MD Ot R42 DIZZINESS AND GIDDINESS 10/21/2016 SHAY ALFONSO MD Ot Z85.048 PRSNL HX OF MALIG NEOPLM OF RECTUM , RECT 10/21/2016 SHAY ALFONSO MD Ot Z92.21 PERSONAL HISTORY OF ANTINEOPLASTIC CHEMO 10/21/2016 SHAY ALFONSO MD Ot Z92.3 PERSONAL HISTORY OF IRRADIATION 10/23/2016 SHAY ALFONSO MD Ot E87.6 HYPOKALEMIA 10/23/2016 SHAY ALFONSO MD Ot N39.0 URINARY TRACT INFECTION, SITE NOT SPECIF 10/23/2016 SHAY ALFONSO MD Ot R10.84 GENERALIZED ABDOMINAL PAIN 10/23/2016 SHAY ALFONSO MD Ot R11.2 NAUSEA WITH VOMITING, UNSPECIFIED 10/23/2016 SHAY ALFONSO MD Ot R19.7 DIARRHEA, UNSPECIFIED 10/23/2016 SHAY ALFONSO MD Ot R42 DIZZINESS AND GIDDINESS 10/23/2016 SHAY ALFONSO MD Ot Z85.048 PRSNL HX OF MALIG NEOPLM OF RECTUM , RECT 10/23/2016 SHAY ALFONSO MD Ot Z92.21 PERSONAL HISTORY OF ANTINEOPLASTIC CHEMO 10/23/2016 SHAY ALFONSO MD Ot Z92.3 PERSONAL HISTORY OF IRRADIATION 10/24/2016 LIZBETH SOLIS, SHANTE Peña Ot 154.1 MALIGNANT NEOPL RECTUM 10/24/2016 SHANTE NIEVSE MD Ot 571.8 CHRONIC LIVER DIS NEC 10/24/2016 SHANTE NIEVES MD Ot 591 HYDRONEPHROSIS 10/24/2016 SANTOS SOLIS, ADOLPH Jon Ot 154.1 MALIGNANT NEOPL RECTUM 10/24/2016 SANTOS SOLIS, ADOLPH Jon Ot V72.63 PRE-PROCEDURAL LABORATORY EXAMINATION 10/24/2016 SANTOS SOLIS, ADOLPH Jon Ot V74.8 SCREEN-BACTERIAL DIS NEC 10/24/2016 TED PA PARK SUPERINTENDENT Ot 154.1 MALIGNANT NEOPL RECTUM 10/24/2016 TED PA PARK SUPERINTENDENT Ot 280.9 IRON DEFIC ANEMIA NOS 10/24/2016 PATED Juan PARK SUPERINTENDENT Ot 311 DEPRESSIVE DISORDER NEC 10/24/2016 PATED Juan PARK SUPERINTENDENT Ot 530.81 ESOPHAGEAL REFLUX 10/24/2016 TED PA PARK SUPERINTENDENT Ot 536.3 GASTROPARESIS 10/24/2016 TED PA PARK SUPERINTENDENT Ot 607.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, ORGANIC ORIGN 10/24/2016 TED PA PARK SUPERINTENDENT Ot V58.69 OTH MED,LT,CURRENT USE 10/24/2016 TED PA PARK SUPERINTENDENT Ot 154.1 MALIGNANT NEOPL RECTUM 10/24/2016 TED PA PARK SUPERINTENDENT Ot 280.9 IRON DEFIC ANEMIA NOS 10/24/2016 TED PA PARK SUPERINTENDENT Ot 311 DEPRESSIVE DISORDER NEC 10/24/2016 TED PA PARK SUPERINTENDENT Ot 530.81 ESOPHAGEAL REFLUX 10/24/2016 TED PA PARK SUPERINTENDENT Ot 536.3 GASTROPARESIS 10/24/2016 TED PA PARK SUPERINTENDENT Ot 607.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, ORGANIC ORIGN 10/24/2016 TED PA PARK SUPERINTENDENT Ot V58.69 OTH MED,LT,CURRENT USE 10/24/2016 ROXI CALI MD Ot 154.1 MALIGNANT NEOPL RECTUM 10/24/2016 ROXI CALI MD Ot 154.1 MALIGNANT NEOPL RECTUM 10/24/2016 ROXI CALI MD Ot C20 MALIGNANT NEOPLASM OF RECTUM 10/24/2016 ROXI CALI MD, Ot C20 MALIGNANT NEOPLASM OF RECTUM 10/24/2016 ROXI CALI MD Ot D50.9 IRON DEFICIENCY ANEMIA, UNSPECIFIED 10/24/2016 ROXI CALI MD Ot F33.9 MAJOR DEPRESSIVE DISORDER, RECURRENT, UN 10/24/2016 ROXI CALI MD Ot G47.00 INSOMNIA, UNSPECIFIED 10/24/2016 ROXI CALI MD Ot N39.490 OVERFLOW INCONTINENCE 10/24/2016 ROXI CALI MD, Ot Z79.899 OTHER INTERMEDIATE (CURRENT) DRUG THERAPY 10/24/2016 ROXI CALI MD Ot Z92.3 PERSONAL HISTORY OF IRRADIATION 10/24/2016 ROXI CALI MD Ot C20 MALIGNANT NEOPLASM OF RECTUM 10/24/2016 ROXI CALI MD, Ot C20 MALIGNANT NEOPLASM OF RECTUM 10/24/2016 ROXI CALI MD, Ot D50.9 IRON DEFICIENCY ANEMIA, UNSPECIFIED 10/24/2016 ROXI CALI MD, Ot F33.9 MAJOR DEPRESSIVE DISORDER, RECURRENT, UN 10/24/2016 ROXI CALI MD, Ot G47.00 INSOMNIA, UNSPECIFIED 10/24/2016 ROXI CALI MD, Ot N39.490 OVERFLOW INCONTINENCE 10/24/2016 ROXI CALI MD, Ot Z79.899 OTHER INTERMEDIATE (CURRENT) DRUG THERAPY 10/24/2016 ROXI CALI MD, Ot Z92.3 PERSONAL HISTORY OF IRRADIATION 10/24/2016 ROXI CALI MD, Ot C20 MALIGNANT NEOPLASM OF RECTUM 10/24/2016 ROXI CALI MD, Ot C20 MALIGNANT NEOPLASM OF RECTUM 10/24/2016 ROXI CALI MD, Ot D50.9 IRON DEFICIENCY ANEMIA, UNSPECIFIED 10/24/2016 ROXI CALI MD, Ot F33.9 MAJOR DEPRESSIVE DISORDER, RECURRENT, UN 10/24/2016 ROXI CALI MD, Ot G47.00 INSOMNIA, UNSPECIFIED 10/24/2016 ROXI CALI MD, Ot N39.490 OVERFLOW INCONTINENCE 10/24/2016 ROXI CALI MD, Ot Z79.899 OTHER INTERMEDIATE (CURRENT) DRUG THERAPY 10/24/2016 ROXI CALI MD, Ot Z92.3 PERSONAL HISTORY OF IRRADIATION 10/24/2016 ROXI CALI MD, Ot C20 MALIGNANT NEOPLASM OF RECTUM 11/12/2016 LINDA CASAS DO Ot E86.0 DEHYDRATION 11/12/2016 LINDA CASAS DO Ot E87.6 HYPOKALEMIA 11/12/2016 LINDA CASAS DO, Ot G89.29 OTHER CHRONIC PAIN 11/12/2016 LINDA CASAS DO Ot R10.84 GENERALIZED ABDOMINAL PAIN 11/12/2016 LINDA CASAS DO Ot R11.2 NAUSEA WITH VOMITING, UNSPECIFIED 11/12/2016 LINDA CASAS DO Ot R19.7 DIARRHEA, UNSPECIFIED 11/12/2016 LINDA CASAS DO Ot Z85.048 PRSNL HX OF MALIG NEOPLM OF RECTUM, RECT 11/12/2016 LINDA CASAS DO Ot Z93.2 ILEOSTOMY STATUS 11/13/2016 JOSE ANTONIO WILEY DO, Ot G89.29 OTHER CHRONIC PAIN 11/13/2016 JOSE ANTONIO WILEY DO, Ot K76.0 FATTY (CHANGE OF) LIVER, NOT ELSEWHERE C 11/13/2016 JOSE ANTONIO WILEY DO Ot R10.84 GENERALIZED ABDOMINAL PAIN 11/13/2016 JOSE ANTONIO WILEY DO Ot R11.2 NAUSEA WITH VOMITING, UNSPECIFIED 11/13/2016 JOSE ANTONIO WILEY DO Ot Z85.048 PRSNL HX OF MALIG NEOPLM OF RECTUM, RECT 11/13/2016 JOSE ANTONIO WILEY DO Ot Z93.2 ILEOSTOMY STATUS 11/13/2016 JOSE ANTONIO WILEY DO Ot Z98.0 INTESTINAL BYPASS AND ANASTOMOSIS STATUS 11/15/2016 VIRAJ SOLIS, ROXI K Ot C20 MALIGNANT NEOPLASM OF RECTUM Procedures Code [place] [address] ROUTINE VENIPUNCTURE 08/10/2012 83199 HEMOCCULT 2012 59963 HEMOCCULT 2012 63677 CBC 08/10/2012 59556 CMP 08/10/2012 48264 LIPID PANEL 08/10 [id number] GFR CALC (RESULT ONLY) 08/10/2012 74455 HEMOGLOBIN (IN-HOUSE) 08/27/2012 45.42 08/29/2012 48.24 08/29/2012 Medical O [facility] 10/04/2012 46.01 12/06/2012 47.19 12/06/2012 48.63 12/06/2012 86.07 12/06/2012 57.32 12/13/2012 76368 UA W/ CULTURE IF INDICATED 01/01/2013 80548 URINE DRUG SCREEN (IN-HOUSE) 01/01/[address] ABDOMEN & PELVIS W/ & W/O CONTRAST 01/02/2013 50184 ROUTINE VENIPUNCTURE 01/02/2013 08933 CULTURE URINE 47526 CMP 01/03/2013 [id number] GFR CALC (RESULT ONLY) 01/03/2013 99306 CBC 01/03/2013 45.92 SM BOWEL-RECT STUMP ANAS [...] culture - 02/28/16 02:15 Bacterial urine culture [id number] NRG COLONY COUNT 10,000/ML - 100,000/ML NRG FTX;REPORTABLE SENSITIVITY REPORTED 03/01 08:40 [facility] Bacterial susceptibility panel - 02/28/16 02:15 [...] susceptibility test by minimum inhibitory concentration - [facility] Bacterial susceptibility panel - 02/28/16 02:15 [...] test by minimum inhibitory concentration 2 NRG Bacterial urine culture - 05/30/16 13:50 Bacterial urine culture [id number] NRG COLONY COUNT >100,000/ML NRG FTX;REPORTABLE SEE COMMENT NRG FREE TEXT ENTRY 2 PLUS MIXED GRAM POSITIVES NRG FREE TEXT ENTRY 3 <10,000/ML NR Bacterial susceptibility panel - 05/30/16 13:50 Gentamicin [...] susceptibility test by minimum inhibitory concentration - [facility] Bacterial susceptibility panel - 05/30/16 13:50 [...] susceptibility test by minimum inhibitory concentration - [facility] Complete blood count (CBC) with automated [...] culture - 08/14/16 01:13 Bacterial urine culture [id number] NRG COLONY COUNT >100,000/ML NRG FTX;REPORTABLE SENSITIVITY REPORTED 08/16/16 10:05 NRG URINE CULTURE RESULTS PLUS [facility] Bacterial susceptibility panel - 08/14/16 01:13 [...] susceptibility test by minimum inhibitory concentration - [facility] Bacterial susceptibility panel - 08/14/16 01:13 [...] susceptibility test by minimum inhibitory concentration - [facility] Bacterial susceptibility panel - 08/14/16 01:13 [...] FOR INFLUENZA A AND B ANTIGENS BY IA NRG Blood lactic acid measurement (moles/volume) - 09/21/16 [...] SEE COMMENT NRG QUANTITY OF GROWTH Isolated NRG Bacterial blood culture [id number] NRG Capillary blood glucose measurement by glucometer (mass/volume) [...] OF GROWTH Isolated NRG Bacterial blood culture [id number] NRG FREE TEXT ENTRY 2 NOT STREPTOCOCCUS [...] culture - 09/21/16 10:15 Bacterial urine culture [id number] NRG COLONY COUNT 10,000/ML - 100,000/ML NRG FTX;REPORTABLE SENSITIVITY REPORTED AT 1712, 3--17 [facility] Bacterial susceptibility panel - 09/21/16 10:15 [...] susceptibility test by minimum inhibitory concentration - [facility] Bacterial susceptibility panel - 09/21/16 10:15 [...] bacteria identification by culture - 10/06/16 22:33 NEGATIVE FOR 0157 NEGATIVE FOR E COLI 0157 NRG NEGATIVE FOR CAMPY NEGATIVE FOR CAMPYLOBACTER NRG NEGATIVE FOR SHIGELLA NEGATIVE FOR SHIGELLA NRG NEGATIVE FOR SALMONELLA NEGATIVE FOR SALMONELLA NRG Complete blood count (CBC) with automated white blood cell (WBC) differential - 10/20/16 23:36 Blood leukocytes automated count (number/volume) 10.6 10*3/ uL 4.3-11.0 Blood erythrocytes automated count (number/volume) 5.99 10*6 /uL 4.35-5.85 Venous blood hemoglobin measurement (mass/volume) 17.1 g/dL 13.3-17.7 Blood hematocrit (volume fraction) 51 % 40-54 Automated erythrocyte mean corpuscular volume 84 [foz_us] 80-99 Automated erythrocyte mean corpuscular hemoglobin (mass per erythrocyte) 29 pg 25-34 Automated erythrocyte mean corpuscular hemoglobin concentration measurement ( mass/volume) 34 g/dL 32-36 Automated erythrocyte distribution width ratio 14.4 % 10.0-14.5 Automated blood platelet count (count/volume) 260 10*3/uL 130-400 Automated blood platelet mean volume measurement 10.5 [foz_ us] 7.4-10.4 Automated blood neutrophils/100 leukocytes 69 % 42-75 Automated blood lymphocytes/100 leukocytes 20 % 12-44 Blood monocytes/100 leukocytes 9 % 0-12 Automated blood eosinophils/100 leukocytes 2 % 0-10 Automated blood basophils/100 leukocytes 0 % 0-10 Blood neutrophils automated count (number/volume) 7.3 10*3 1.8-7.8 Blood lymphocytes automated count (number/volume) 2.1 10*3 1.0-4.0 Blood monocytes automated count (number/volume) 0.9 10*3 0.0-1.0 Automated eosinophil count 0.2 10*3/uL 0.0-0.3 Automated blood basophil count (count/volume) 0.0 10*3/uL 0.0-0.1 Comprehensive metabolic panel - 10/20/16 23:36 Serum or plasma sodium measurement (moles/volume) 145 mmol/ L 135-145 Serum or plasma potassium measurement (moles/volume) 3.1 mmol/L 3.6-5.0 Serum or plasma chloride measurement (moles/volume) 107 mmol /L 98-107 Carbon dioxide 25 mmol/L 21-32 Serum or plasma anion gap determination (moles/volume) 13 mmol/L 5-14 Serum or plasma urea nitrogen measurement (mass/volume) 15 mg/dL 7-18 Serum or plasma creatinine measurement (mass/volume) 1.41 mg /dL 0.60-1.30 Serum or plasma urea nitrogen/creatinine mass ratio 11 NRG Serum or plasma creatinine measurement with calculation of estimated glomerular filtration rate 53 NRG Serum or plasma glucose measurement (mass/volume) 100 mg/dL 70-105 Serum or plasma calcium measurement (mass/volume) 9.5 mg/dL 8.5-10.1 Serum or plasma total bilirubin measurement (mass/volume) 1.2 mg/dL 0.1-1.0 Serum or plasma alkaline phosphatase measurement (enzymatic activity/volume) 74 U/L 40-136 Serum or plasma aspartate aminotransferase measurement (enzymatic activity/ volume) 34 U/L 5-34 Serum or plasma alanine aminotransferase measurement (enzymatic activity/volume ) 33 U/L 0-55 Serum or plasma protein measurement (mass/volume) 7.6 g/dL 6.4-8.2 Serum or plasma albumin measurement (mass/volume) 4.5 g/dL 3.2-4.5 Magnesium - 10/20/16 23:36 Magnesium 2.3 mg/dL 1.8-2.4 Lipase - 10/20/16 23:36 Lipase 26 U/L 8-78 Serum or plasma C reactive protein measurement (mass/volume) - 10/20/16 23:36 Serum or plasma C reactive protein measurement (mass/volume) 0.71 mg/dL 0.00-0.50 Complete urinalysis with reflex to culture - 10/21/16 00:27 Urine color determination YELLOW NRG Urine clarity [...] erythrocyte count by microscopy (number/high power field) NONE NRG Automated urine sediment leukocyte count by microscopy (number/high power field ) [HPF] NRG Bacteria detection in urine sediment by light microscopy LARGE NRG Squamous epithelial cells detection in urine sediment by light microscopy 2-5 NRG Crystals detection in urine sediment by light microscopy NONE NRG Casts detection in urine sediment by light microscopy NONE NRG Mucus detection in urine sediment by light microscopy LARGE NRG Complete urinalysis with reflex to culture YES NRG Bacterial urine culture - 10/21/16 00:27 Bacterial urine culture [id number] NRG COLONY COUNT 10,000/ML - 100,000/ML NRG FTX;REPORTABLE SENSITIVITY REPORTED 10/23/16 8:45 NR Bacterial susceptibility panel - 10/21/16 00:27 Oxacillin susceptibility test by minimum inhibitory concentration <= NRG Gentamicin susceptibility test by minimum inhibitory concentration <= NRG Trimethoprim/sulfamethoxazole susceptibility test by minimum inhibitoryconcentration <= NRG Vancomycin susceptibility test by minimum inhibitory concentration <= NRG Levofloxacin susceptibility test by minimum inhibitory concentration <= NRG Rifampin susceptibility test by minimum inhibitory concentration <= NRG Tetracycline susceptibility test by minimum inhibitory concentration <= NRG Bacterial susceptibility panel - 10/21/16 00:27 Gentamicin susceptibility test by minimum inhibitory concentration [...] Linezolid susceptibility test by minimum inhibitory concentration 1 NRG Encounters ACCT No. Visit Date/Time Discharge Status Pt. Type Provider Facility Loc./Unit Complaint [id number] 10/29/2014 09:34:00 10/29/2014 23: 59:59 CLS Outpatient JANINE HERNDON MD [id number] 10/17/2014 10:25:00 10/17/2014 23: 59:59 CLS Outpatient LINDA BENTLEY APRN [id number] 09/29/2014 13:37:00 09/29/2014 23: 59:59 CLS Outpatient JANINE HERNDON MD [id number] 08/01/2014 14:42:00 08/01/2014 23: 59:59 CLS Outpatient LINDA BENTLEY APRN [id number] 06/27/2014 13:22:00 06/27/2014 23: 59:59 CLS Outpatient LINDA BENTLEY APRN [id number] 05/21/2014 14:00:00 05/21/2014 23: 59:59 CLS Outpatient LINDA BENTLEY APRN [id number] 05/07/2014 10:40:00 05/07/2014 23: 59:59 CLS Outpatient LINDA BENTLEY APRN [id number] 02/25/2014 15:37:00 02/25/2014 23: 59:59 CLS Outpatient LINDA BENTLEY APRN [id number] 02/19/2014 00:00:00 02/19/2014 23: 59:59 CLS Outpatient LINDA BENTLEY APRN [id number] 01/29/2014 16:00:00 01/29/2014 23: 59:59 CLS Outpatient LINDA BENTLEY APRN [id number] 12/11/2013 11:57:00 12/11/2013 23: 59:59 CLS Outpatient LINDA BENTLEY APRN [id number] 10/30/2013 14:47:00 10/30/2013 23: 59:59 CLS Outpatient LINDA BENTLEY APRN [id number] 09/03/2013 07:55:00 09/03/2013 23: 59:59 CLS Outpatient JANINE HERNDON MD [id number] 09/02/2013 09:25:00 09/02/2013 23: 59:59 CLS Outpatient LINDA BENTLEY APRN Trevon [id number] 05/27/2013 12:30:00 05/27/2013 23: 59:59 CLS Outpatient ADOLPH GRAHAM MD [id number] 04/10/2013 11:45:00 04/10/2013 23: 59:59 CLS Outpatient LINDA BENTLEY APRN [id number] 04/01/2013 15:10:00 04/01/2013 23: 59:59 CLS Outpatient NIKHIL PITTS DO [id number] 03/22/2013 00:00:00 03/22/2013 23: 59:59 CLS Outpatient RIVER ARCE MD [id number] 10/17/2012 16:05:00 10/17/2012 23: 59:59 CLS Outpatient LINDA BENTLEY APRN [id number] 10/03/2012 17:55:00 10/03/2012 23: 59:59 CLS Outpatient LINDA BENTLEY APRN [id number] 09/19/2012 18:39:00 09/19/2012 23: 59:59 CLS Outpatient ADOLPH GRAHAM MD [id number] 08/27/2012 12:52:00 08/27/2012 23: 59:59 CLS Outpatient [id number] 08/10/2012 11:19:00 08/10/2012 23: 59:59 CLS Outpatient LINDA BENTLEY APRN [id number] 08/03/2012 15:56:00 08/03/2012 23: 59:59 CLS Outpatient [id number] 03/11/2013 14:50:00 Document Registration [id number] 01/22/2013 15:25:00 Document Registration [id number] 01/07/2013 15:54:00 Document Registration [id number] 01/02/2013 16:51:00 Document Registration [id number] 01/01/2013 15:26:00 Document Registration
== END 2016-10-21 04:01 | disposition home or self-care (01) ==
LOC: EDUNIT# 23:32 → ER 23:33
DX: R11.2 Nausea with vomiting, unspecified (principal); R19.7 Diarrhea, unspecified; R42 Dizziness and giddiness; E87.6 Hypokalemia; R10.84 Generalized abdominal pain; N39.0 Urinary tract infection, site not specified; Z85.048 Personal history of other malignant neoplasm of rectum, rectosigmoid junction, and anus; Z92.21 Personal history of antineoplastic chemotherapy; Z92.3 Personal history of irradiation
CPT/HCPCS: 36415; 71010; 80053; 81000; 83690; 83735; 85025; 86141; 87077; 87088; 87186; 96365; 96375

== ENCOUNTER → 2016-10-24 | Outpatient (CLI) | payer MEDICARE, MEDICAID ==
[~2016-10-24] MED LIST changes: +BARIUM SUSPENSION 2.1% (VANILLA SILQ) 450 ML PO ONE; +CATHETER FLUSH 10 ML SYR IV PRN; +CEPH-507 PO; +IOHEXOL 350 MG/ML 100 ML (OMNIPAQUE 350) VIAL IV ONE; +IOHEXOL 350 MG/ML 150 ML (OMNIPAQUE 350) VIAL IV ONE; +NS 100 ML (IVPB) BAG IV ONE; +PROM12.59 PO
--- NOTE | 2016-10-24 12:59 | Diagnostic Imaging Report ---
PROCEDURE: CT chest, abdomen, and pelvis with contrast. TECHNIQUE: Multiple contiguous axial images were obtained through the chest, abdomen, and pelvis after the administration of intravenous contrast. INDICATION: Rectal cancer. CONTRAST: 100 mL of Omnipaque 350 is administered intravenously. COMPARISON: 03/15/2016. FINDINGS: CT chest: The lungs demonstrate a 9 mm irregular nodule in the right middle lobe with morphology in favor of a scar and is without change from prior exam. Another nonspecific 5 mm nodule along the minor fissure is also seen. These nodules are stable from 10/08/2013 PET/CT suggestive of scars. No significant consolidation, mass, or suspicious nodule is seen. The axillae, the angelito, and the mediastinum demonstrate no mass or lymphadenopathy. The thoracic aorta is normal in caliber. The heart size is normal. No pleural or pericardial effusion. The osseous structures appear grossly unremarkable. CT abdomen and pelvis: The liver demonstrates diffuse fatty infiltration. The gallbladder, the adrenals, and the pancreas appear unremarkable. The spleen is slightly enlarged measuring 15.2 x 5 x 10.8 cm. The kidneys have symmetric enhancement and contrast excretion. There is no hydronephrosis. There is suggestion of prior cystectomy with an ileal conduit emptying through a left lower quadrant stoma. There is anastomosis near the colorectal junction. No bowel obstruction. There is soft tissue thickening in the prerectal soft tissues, which appears stable from prior exams. No para-aortic or pelvic lymphadenopathy is seen. The osseous structures appear grossly unremarkable. IMPRESSION: CT chest: Stable right middle lobe and right minor fissure subcentimeter nodules from 2013 compatible with benign etiology. No evidence of metastasis. CT abdomen and pelvis: 1. Hepatic steatosis. 2. Mild splenomegaly. 3. Stable presacral soft tissue thickening probably related to scarring from prior surgery and radiation. Dictated by: Dictated on workstation # [id number]
== END ==
LOC: RAD 11:15
PROVIDERS: ATTEND Internal Medicine Hematology & Oncology
DX: C20 Malignant neoplasm of rectum (principal)
CPT/HCPCS: 71260; 74177

== ENCOUNTER 2016-10-26 08:43 | Outpatient (RCR) | payer MEDICARE, MEDICAID ==
--- OUTSIDE RECORDS SUMMARY | 2016-09-12 13:12 | XMS REPORT | Continuity of Care Document ---
Author Author [facility] Organization [facility] Address Unknown Phone Unavailable Care Team Providers Care Ebd Special Education Teacher Name Role Phone Gildardo Walker PCP [phone] Source Comments Some departments are not documenting in the electronic medical record. If you do not see the information that you expected, contact Release of Information in the Health Information Management department at [phone] for further assistance in locating additional records.[facility] Active Allergies and Adverse Reactions Allergen [...] retention 02/10/2014 Rectal cancer (HCC) 02/10/2014 Overview: [id number] S/p brain-adjuvant chemo/XRT S/p LAR with diverting [...]
[2016-09-12 14:07] LABS: BASOPHILS % (AUTO) 0 % (0-10); EOSINOPHILS # (AUTO) 0.1 10^3/uL (0.0-0.3); EOSINOPHILS % (AUTO) 1 % (0-10); LYMPHOCYTES # (AUTO) 2.4 X 10^3 (1.0-4.0); LYMPHOCYTES % (AUTO) 21 % (12-44); MEAN CORPUSCULAR HEMOGLOBIN 29 PG (25-34); MEAN CORPUSCULAR HGB CONC 35 G/DL (32-36); MEAN CORPUSCULAR VOLUME 84 FL (80-99); MEAN PLATELET VOLUME 9.6 FL (7.4-10.4); MONOCYTES # (AUTO) 0.6 X 10^3 (0.0-1.0); MONOCYTES % (AUTO) 5 % (0-12); NEUTROPHILS # (AUTO) 8.1 X 10^3 (1.8-7.8); NEUTROPHILS % (AUTO) 73 % (42-75); PLATELET COUNT 337 10^3/uL (130-400); RED BLOOD COUNT 5.39 10^6/uL (4.35-5.85); RED CELL DISTRIBUTION WIDTH 14.1 % (10.0-14.5); WHITE BLOOD COUNT 11.2 10^3/uL (4.3-11.0)
[2016-09-12 14:37] LABS: ALBUMIN 4.4 G/DL (3.2-4.5); BILIRUBIN,TOTAL 0.4 MG/DL (0.1-1.0); CALCIUM 8.9 MG/DL (8.5-10.1); CREATININE SERUM 1.27 MG/DL (0.60-1.30); POTASSIUM 3.8 MMOL/L (3.6-5.0); TOTAL PROTEIN 7.1 G/DL (6.4-8.2)
[~2016-10-26 08:43] MED LIST changes: -BARIUM SUSPENSION 2.1% (VANILLA SILQ) 450 ML PO ONE; -CATHETER FLUSH 10 ML SYR IV PRN; -IOHEXOL 350 MG/ML 100 ML (OMNIPAQUE 350) VIAL IV ONE; -IOHEXOL 350 MG/ML 150 ML (OMNIPAQUE 350) VIAL IV ONE; -NS 100 ML (IVPB) BAG IV ONE
== END 2016-12-11 | disposition home or self-care (01) ==
LOC: ONC 08:43
PROVIDERS: ATTEND Internal Medicine Hematology & Oncology
DX: C20 Malignant neoplasm of rectum (principal); D50.9 Iron deficiency anemia, unspecified; F33.9 Major depressive disorder, recurrent, unspecified; G47.00 Insomnia, unspecified; N39.490 Overflow incontinence; Z79.899 Other long term (current) drug therapy; Z92.3 Personal history of irradiation
CPT/HCPCS: 36415; 80053; 82378; 82728; 83540; 85025; 99213

== ENCOUNTER 2017-01-01 03:50 | Inpatient (IN) | payer MEDICARE, MEDICAID ==
[~2017-01-01] VITALS: Ht 170.2 cm; Wt 83.9 kg
--- NOTE | 2017-01-01 04:03 | ED General ---
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 JERRICA BENTLEY Allergies and Home Medications Allergies Coded Allergies: morphine (Verified Allergy, Intermediate, 02/21/13) codeine (Unverified Adverse Reaction, Unknown, NAUSEA, 03/20/14) Home Medications Diazepam 10 Mg Tablet, 10 MG PO HS, (Reported) Gabapentin 600 Mg Tablet, 600 MG PO TID, (Reported) Hyoscyamine Sulfate 0.125 Mg Tab.subl, 1-2 TAB SL Q4H, #20 Prescribed by: JOSE ANTONIO WILEY on 10/06/16 2355 Oxycodone HCl 30 Mg Tablet, 30 MG PO BID PRN for SEVERE PAIN, (Reported) Oxycodone HCl/Acetaminophen 1 Each Tablet, 1 TAB PO Q4H PRN for MODERATE PAIN, ( Reported) Promethazine HCl 25 Mg Supp.rect, 25 MG RC Q4H, #10 Prescribed by: JOSE ANTONIO WILEY on 10/06/16 2355 Promethazine HCl 12.5 Mg Tablet, 12.5 MG PO Q6H PRN for NAUSEA/VOMITING-1ST LINE , #8 Prescribed by: SHAY BILLINGS on 10/21/16 0344 Sertraline HCl 100 Mg Tablet, 100 MG PO DAILY PRN for EMOTIONS, (Reported) LAST FILLED 07/18/16 #30 Constitutional: see HPI, No chills, No diaphoresis, dizziness, malaise, weakness EENTM: no symptoms reported Respiratory: no symptoms reported Cardiovascular: no symptoms reported Gastrointestinal: see HPI, abdominal pain, diarrhea (PT WITH CHRONIC DIARRHEA AND BOWEL INCONTINENCE SINCE SURGERY FOR RECTAL CANCER), loss of appetite, nausea, vomiting Genitourinary: other (PT HAS PERMANENT UROSTOMY AFTER BLADDER REMOVED DUE TO CANCER) Musculoskeletal: no symptoms reported Skin: no symptoms reported Psychiatric/Neurological: No Symptoms Reported Hematologic/Lymphatic: No Symptoms Reported Immunological/Allergic: no symptoms reported Past Lkgctzb-Qtwbdu-Fgzkax Hx Patient Social History Alcohol Use: Denies Use Recreational Drug Use: No Smoking Status: Never a Smoker Recent Foreign Travel: No Contact w/Someone Who Travel: No Recent Hopitalizations: No Immunizations Up To Date Tetanus Booster (TDap): Unknown PED Vaccines UTD: No Seasonal Allergies Seasonal Allergies: No Surgeries HX Surgeries: Yes (COMPLETE CYSTECTOMY WITH LEFT SIDED UROSTOMY;RECTAL TUMOR RESECTION WITH ILEOSTOMY WITH LATER REVERSAL; LEFT URETERAL STENT; RIGHT CHEST PORT; LEFT HAND SURGERY) Surgeries: Abdominal, Bladder Surgery, Bowel Surgery, Cystectomy, Orthopedic, Rectal, Renal, Vascular Surgery Respiratory Hx Respiratory Disorders: No Cardiovascular Hx Cardiac Disorders: Yes (PT SELF DC'D BP MEDICATIONS) Cardiac Disorders: Hypertension Neurological Hx Neurological Disorders: Yes Neurological Disorders: Headaches /Migraines Reproductive System Hx Reproductive Disorders: Yes (E.D.) Sexually Transmitted Disease: No HIV/AIDS: No Genitourinary Hx Genitourinary Disorders: Yes (CYSTECOMY WITH UROSTOMY--BLADDER REMOVED FOR CANCER; LEFT HYDRONEPHROSIS WITH LEFT URETERAL STENT, NOW LEFT UROSTOMY; ) Genitourinary Disorders: UTI-Chronic Gastrointestinal Hx Gastrointestinal Disorders: Yes (CHRONIC NAUSEA, VOMITING, DIARRHEA AND ABDOMINAL PAIN ; CHRONIC BOWEL INCONTINENCE POST SURGERY FOR RECTAL CANCER. MULTITUDE OF VISITS FOR CHRONIC GI COMPLAINTS OF ABDOMINAL PAIN AND GROIN PAIN WITH NAUSEA/VOMITING/DIARRHEA; CHRONIC ABDOMEN, RECTUM AND GROIN PAIN ; SUSPECTED NARCOTIC BOWEL; GASTRITIS; COLORECTAL CANCER) Gastrointestinal Disorders: Gastroesophageal Reflux, Gastrointestinal Bleed, Obstructive Bowel, Chronic Diarrhea, C-Diff, Hiatal Hernia Musculoskeletal Hx Musculoskeletal Disorders: No Endocrine Hx Endocrine Disorders: No HEENT HX ENT Disorders: Yes (WEARS GLASSES) Loss of Vision: Denies Hearing Impairment: Denies Cancer Hx Cancer: Yes (RECTAL CANCER DX 11/2012--S/P SURGERY, CHEMO AND RADIATION; BLADDER CANCER--S/P COMPLETE CYSTECTOMY WITH UROSTOMY) Cancer: Bladder, Rectal Psychosocial Hx Psychiatric Problems: Yes Behavioral Health Disorders: Anxiety, Depression Integumentary HX Skin/Integumentary Disorder: No Blood Transfusions Hx Blood Disorders: No Adverse Reaction to a Blood Tr: No Family Medical History Family Medial History: Cataract 03 FATHER, Onset:Unknown Chest pain 03 FATHER, Onset:50's - 60 Family history: Allergy 03 MOTHER Family history: Arthritis 03 FATHER 03 MOTHER Family history: Asthma 03 MOTHER Family history: Cardiovascular disease 03 FATHER Family history: Diabetes mellitus 03 FATHER 03 MOTHER Family history: Hypertension 03 FATHER 03 MOTHER Headache 03 FATHER 03 MOTHER Heart disease 03 FATHER History of - respiratory disease 03 MOTHER Hypercholesterolemia 03 FATHER 03 MOTHER Kidney disease 03 MOTHER Psychotic disorder 03 MOTHER Visual impairment 03 FATHER 03 MOTHER No Family History of: Abdominal aortic aneurysm Sreedhar's disease Alcoholism Aphasia Cancer Cancer of colon Congenital heart disease Congestive heart failure Cystic fibrosis Dementia Dysphagia Family history: Alzheimer's disease Family history: Breast disease Family history: Coronary thrombosis Family history: Gastrointestinal disease Family history: Glaucoma Family history: Osteoporosis Family history: Thyroid disorder Hearing loss Hereditary disease History of - anemia History of - disorder History of drug abuse Human immunodeficiency virus (HIV) seropositivity Infertile Malignant neoplasm of lung Myocardial infarction Parkinson's disease Prostate cancer Seizure disorder Stroke Tuberculosis Physical Exam Vital Signs Vital Sign - Last 12Hours 01/01/17 03:54 Temp 97.7 Pulse 117 Resp 20 B/P (MAP) 131/111 Pulse Ox 96 O2 Delivery Room Air Capillary Refill : General Appearance: No Apparent Distress, WD/WN, Other (AMBULATES WITHOUT DIFFICULTY ) Neck: Normal Inspection Respiratory: Normal Breath Sounds, No Accessory Muscle Use, No Respiratory Distress Cardiovascular: Regular Rate, Rhythm, No Edema, No JVD, No Murmur, Normal Peripheral Pulses Gastrointestinal: Soft, Abnormal Bowel Sounds (DECREASED), Tenderness (DIFFUSE TENDERNESS), Other (UROSTOMY IN PLACE IN LEFT MID ABDOMEN) Extremity: Normal Inspection, No Calf Tenderness, No Pedal Edema Neurologic/Psychiatric: Alert, Oriented x3, No Motor/Sensory Deficits, Normal 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, 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 as 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 Skin: Normal Color, Warm/Dry Progress/Results/Core Measures Results/Orders Lab Results Laboratory Tests Test 01/01/17 04:09 01/01/17 04:12 Range/Units White Blood Count 16.0 H 4.3-11.0 10^3/uL Red Blood Count 6.16 H 4.35-5.85 10^6/uL Hemoglobin 17.6 13.3-17.7 G/DL Hematocrit 51 40-54 % Mean Corpuscular Volume 82 80-99 FL Mean Corpuscular Hemoglobin 29 25-34 PG Mean Corpuscular Hemoglobin Concent 35 32-36 G/DL Red Cell Distribution Width 13.8 10.0-14.5 % Platelet Count 490 H 130-400 10^3/uL Mean Platelet Volume 10.2 7.4-10.4 FL Neutrophils (%) (Auto) 68 42-75 % Lymphocytes (%) (Auto) 23 12-44 % Monocytes (%) (Auto) 8 0-12 % Eosinophils (%) (Auto) 1 0-10 % Basophils (%) (Auto) 0 0-10 % Neutrophils # (Auto) 10.9 H 1.8-7.8 X 10^3 Lymphocytes # (Auto) 3.6 1.0-4.0 X 10^3 Monocytes # (Auto) 1.3 H 0.0-1.0 X 10^3 Eosinophils # (Auto) 0.1 0.0-0.3 10^3/uL Basophils # (Auto) 0.1 0.0-0.1 10^3/uL Neutrophils % (Manual) 63 % Lymphocytes % (Manual) 29 % Monocytes % (Manual) 6 % Band Neutrophils 2 % Blood Morphology Comment NORMAL Prothrombin Time 13.4 12.2-14.7 SEC INR Comment 1.1 0.8-1.4 Activated Partial Thromboplast Time 28 24-35 SEC Sodium Level 138 135-145 MMOL/L Potassium Level 3.0 L 3.6-5.0 MMOL/L Chloride Level 108 H 98-107 MMOL/L Carbon Dioxide Level 14 L 21-32 MMOL/L Anion Gap 16 H 5-14 MMOL/L Blood Urea Nitrogen 13 7-18 MG/DL Creatinine 1.56 H 0.60-1.30 MG/DL Estimat Glomerular Filtration Rate 47 BUN/Creatinine Ratio 8 0-20 Glucose Level 118 H 70-105 MG/DL Calcium Level 10.1 8.5-10.1 MG/DL Magnesium Level 2.4 1.8-2.4 MG/DL Total Bilirubin 0.6 0.1-1.0 MG/DL Aspartate Amino Transf (AST/SGOT) 31 5-34 U/L Alanine Aminotransferase (ALT/SGPT) 56 H 0-55 U/L Alkaline Phosphatase 97 40-136 U/L Troponin I < 0.30 <0.30 NG/ML Total Protein 8.8 H 6.4-8.2 GM/DL Albumin 4.8 H 3.2-4.5 GM/DL Amylase Level 85 25-125 U/L Lipase 35 8-78 U/L TSH [facility] Testing 1.36 0.35-4.94 UIU/ML Urine Color YELLOW Urine Clarity MUCOUS Urine pH 7 5-9 Urine Specific [place] 1.010 L 1.016-1.022 Urine Protein 2+ H NEGATIVE Urine Glucose (UA) NEGATIVE NEGATIVE Urine Ketones NEGATIVE NEGATIVE Urine Nitrite NEGATIVE NEGATIVE Urine Bilirubin NEGATIVE NEGATIVE Urine Urobilinogen NORMAL NORMAL MG/DL Urine Leukocyte Esterase 3+ H NEGATIVE Urine RBC (Auto) 2+ H NEGATIVE Urine RBC 5-10 H /HPF Urine WBC 50-100 H /HPF Urine Squamous Epithelial Cells NONE /HPF Urine Crystals NONE /LPF Urine Bacteria LARGE H /HPF Urine Casts NONE /LPF Urine Mucus NEGATIVE /LPF Urine Culture Indicated YES Urine Opiates Screen NEGATIVE NEGATIVE Urine Oxycodone Screen NEGATIVE NEGATIVE Urine Methadone Screen NEGATIVE NEGATIVE Urine Propoxyphene Screen NEGATIVE NEGATIVE Urine Barbiturates Screen NEGATIVE NEGATIVE Ur Tricyclic Antidepressants Screen NEGATIVE NEGATIVE Urine Phencyclidine Screen NEGATIVE NEGATIVE Urine Amphetamines Screen NEGATIVE NEGATIVE Urine Methamphetamines Screen NEGATIVE NEGATIVE Urine Benzodiazepines Screen POSITIVE H NEGATIVE Urine Cocaine Screen NEGATIVE NEGATIVE Urine Cannabinoids Screen NEGATIVE NEGATIVE My Orders Orders - JOSE ANTONIO WILEY DO Saline Lock/Iv-Start (01/01/17 04:00) Ekg Tracing (01/01/17 04:00) Monitor-Rhythm Ecg Trace Only (01/01/17 04:00) Amylase (01/01/17 04:00) Cbc With Automated Diff (01/01/17 04:00) Comprehensive Metabolic Panel (01/01/17 04:00) Drug Screen Stat (Urine) (01/01/17 04:00) Lipase (01/01/17 04:00) Magnesium (01/01/17 04:00) Protime With Inr (01/01/17 04:00) Partial Thromboplastin Time (01/01/17 04:00) Thyroid Analyzer (01/01/17 04:00) Troponin I (01/01/17 04:00) Ua Culture If Indicated (01/01/17 04:00) Manual Differential (01/01/17 04:09) Promethazine Injection (Phenergan Injec (01/01/17 04:45) Dicyclomine Injection (Bentyl Injection) (01/01/17 04:45) Diphenhydramine Injection (Benadryl Inje (01/01/17 04:45) Ketorolac Injection (Toradol Injection) (01/01/17 04:45) Saline Lock/Iv-Start (01/01/17 04:36) Lactated Ringers (Lr 1000 Ml Iv Solution (01/01/17 04:36) Acute Abd Series (01/01/17 04:36) Ct Abdomen/Pelvis Wo (01/01/17 04:36) Urine Culture (01/01/17 04:12) Hyoscyamine Sl Tablet (Levsin Sl Tablet) (01/01/17 05:00) Medications Given in ED Current Medications Medications Dose Ordered Sig/Kenny Route Start Time Stop Time Status Last Admin Dose Admin Diphenhydramine HCl 50 mg ONCE ONCE IVP 01/01/17 04:45 01/01/17 04:58 DC 01/01/17 04:52 50 MG Ketorolac Tromethamine 30 mg ONCE ONCE IVP 01/01/17 04:45 01/01/17 04:58 DC 01/01/17 04:52 30 MG Lactated Ringer's 1,000 ml @ 0 mls/hr Q0M ONCE IV 01/01/17 04:36 01/01/17 04:58 DC 01/01/17 04:52 999 MLS/HR Promethazine HCl 25 mg ONCE ONCE IVP 01/01/17 04:45 01/01/17 04:58 DC 01/01/17 04:52 25 MG Vital Signs/I&O Vital Sign - Last 12Hours 01/01/17 01/01/17 03:54 04:52 Temp 97.7 97.7 Pulse 117 Resp 20 B/P (MAP) 131/111 Pulse Ox 96 O2 Delivery Room Air ECG Initial ECG Impression Time: 04:29 Initial ECG Rate: 101 Initial ECG Rhythm: Normal Sinus Initial ECG Impression: Normal Initial ECG Comparisson: Unchanged Diagnostic Imaging Comments ACUTE ABDOMEN XRAYS--NO ACUTE PROCESS, NON-SPECIFIC BOWEL GAS PATTERN, PENDING RADIOLOGIST REVIEW CT ABDOMEN/PELVIS--PARTIAL SMALL BOWEL OBSTRUCTION WITH TRANSITION POINT AT ANASTOMOSIS, PER [facility] VIA FAX @ [phone] Reviewed: Reviewed by Me Departure Communication Progress Notes [id number]--PAGED/SPOKE WITH DR. GRAHAM, ACCEPTS PT FOR ADMIT Impression Impression: Primary Impression: Partial small bowel obstruction Additional Impressions: CHRONIC NAUSEA, VOMITING, DIARRHEA AND ABDOMINAL PAIN UTI (urinary tract infection) HX OF COLON AND BLADDER CANCER Disposition: ADMITTED INPATIENT Condition: Stable Decision to Admit Reason: Admit from ER (General) Decision to Admit/Date: Jan 01, 2017 Time/Decision to Admit Time: 06:05 Departure-Patient Inst. Referrals: NIKHIL PITTS DO (PCP) Primary Care Physician LINDA BENTLEY (Family) Primary Care Physician JOSE ANTONIO WILEY DO Jan 01, 2017 04:02
[2017-01-01] MEDS ORDERED: DIAZ10TA PO (04:19)
[2017-01-01 04:20] LABS: BASOPHILS # (AUTO) 0.1 10^3/uL (0.0-0.1); BASOPHILS % (AUTO) 0 % (0-10); EOSINOPHILS # (AUTO) 0.1 10^3/uL (0.0-0.3); EOSINOPHILS % (AUTO) 1 % (0-10); LYMPHOCYTES # (AUTO) 3.6 X 10^3 (1.0-4.0); LYMPHOCYTES % (AUTO) 23 % (12-44); MEAN CORPUSCULAR HEMOGLOBIN 29 PG (25-34); MEAN CORPUSCULAR HGB CONC 35 G/DL (32-36); MEAN CORPUSCULAR VOLUME 82 FL (80-99); MEAN PLATELET VOLUME 10.2 FL (7.4-10.4); MONOCYTES # (AUTO) 1.3 X 10^3 (0.0-1.0); MONOCYTES % (AUTO) 8 % (0-12); NEUTROPHILS # (AUTO) 10.9 X 10^3 (1.8-7.8); NEUTROPHILS % (AUTO) 68 % (42-75); PLATELET COUNT 490 10^3/uL (130-400); RED BLOOD COUNT 6.16 10^6/uL (4.35-5.85); RED CELL DISTRIBUTION WIDTH 13.8 % (10.0-14.5)
[2017-01-01 04:23] LABS: BILIRUBIN,URINE NEGATIVE (NEGATIVE); KETONES,URINE NEGATIVE (NEGATIVE); LEUKOCYTE ESTERASE ,URINE 3+ (NEGATIVE); NITRITE,URINE NEGATIVE (NEGATIVE); PH,URINE 7 (5-9); PROTEIN,URINE 2+ (NEGATIVE); UROBILINOGEN,URINE NORMAL (NORMAL)
[2017-01-01 04:29] LABS: INR 1.1 (0.8-1.4); PROTHROMBIN TIME PATIENT 13.4 SEC (12.2-14.7)
[2017-01-01] MEDS ORDERED: LACTATED RINGERS 1,000 ML IV ONE (04:36)
[2017-01-01 04:40] LABS: ALANINE AMINOTRANSFERASE 56 U/L (0-55); ALBUMIN 4.8 GM/DL (3.2-4.5); AMYLASE 85 U/L (25-125); ANION GAP 16 MMOL/L (5-14); ASPARTATE AMINO TRANSFERASE 31 U/L (5-34); BILIRUBIN,TOTAL 0.6 MG/DL (0.1-1.0); BLOOD UREA NITROGEN 13 MG/DL (7-18); BUN/CREATININE RATIO 8 (0-20); CALCIUM 10.1 MG/DL (8.5-10.1); CARBON DIOXIDE 14 MMOL/L (21-32); CHLORIDE 108 MMOL/L (98-107); CREATININE SERUM 1.56 MG/DL (0.60-1.30); GFR ESTIMATED 47; GLUCOSE 118 MG/DL (70-105); HEMOLYSIS 10 (-100-29); ICTERUS 0.5 (-100-1.9); LIPASE 35 U/L (8-78); LIPEMIA 2 (-100-49); MAGNESIUM 2.4 MG/DL (1.8-2.4); SODIUM 138 MMOL/L (135-145); TOTAL PROTEIN 8.8 GM/DL (6.4-8.2)
[2017-01-01 04:41] LABS: WBC,URINE 50-100 /HPF
[2017-01-01] MEDS ORDERED: diphenhydrAMINE 50 MG/ML INJ (BENADRYL) IVP ONE (04:45)
[2017-01-01] MEDS ORDERED: PROMETHAZINE INJ 25 MG/ML (PHENERGAN) AMP IVP ONE (04:45)
[2017-01-01] MEDS ORDERED: DICYCLOMINE 10 MG/ML (BENTYL) 2 ML AMP IM ONE (04:45)
[2017-01-01] MEDS ORDERED: KETOROLAC 30 MG/ML VIAL IVP ONE (04:45)
[2017-01-01 04:56] LABS: BAND NEUTROPHILS 2 %; LYMPHOCYTES % (MANUAL) 29 %; NEUTROPHILS % (MANUAL) 63 %
[2017-01-01 05:00] LABS: TROPONIN I < 0.30 NG/ML (<0.30)
[2017-01-01] MEDS ORDERED: HYOSCYAMINE 0.125 MG (LEVSIN) TAB PO ONE (05:00)
--- NOTE | 2017-01-01 07:36 | Diagnostic Imaging Report ---
INDICATION: Altered mental status, dizziness, weakness, abdominal pain. TECHNIQUE: Single view chest with supine and upright radiographs of the abdomen. CORRELATION STUDY: Chest 10/21/2016 FINDINGS: Frontal radiograph of the chest demonstrates no acute abnormality. Right IJ [id number] catheter is present. There is a moderate gaseous distention of the colon. A few gas-filled loops of bowel are present. Apparent suture line low midline pelvis. Additional scattered surgical clips are present. Ostomy over the left lower quadrant. IMPRESSION: 1. Negative for acute cardiopulmonary abnormality. 2. Prominent gaseous distention of the colon. This may reflect prominent colonic ileus with possibility of distal colonic obstruction particularly given the apparent surgical changes not excluded. Followup imaging as clinically warranted. Dictated by: Dictated on workstation # [id number]
--- NOTE | 2017-01-01 07:38 | Diagnostic Imaging Report ---
PROCEDURE: CT abdomen and pelvis without contrast. TECHNIQUE: Multiple contiguous axial images were obtained through the abdomen and pelvis without the use of intravenous contrast. INDICATION: Altered mental status, dizziness, weakness, abdominal pain. CORRELATION STUDY: 10/24/2016. FINDINGS: Lung bases are clear. Diffuse hepatic steatosis is present on unenhanced imaging. Spleen, pancreas, and adrenal glands are unremarkable. Gallbladder is somewhat contracted but otherwise relatively unremarkable. Abdominal aorta with mild wall calcification. There is suggestion of pathologically enlarged aortocaval lymph nodes. Extensive prior surgical changes are present including apparent previous sigmoid colon resection and anastomosis. Cystectomy changes are present. There is left lower quadrant ileostomy. The gastrointestinal tract is dilated with the colon with air and fluid with what appears to be transition point at the anastomosis, may reflect a degree of partial large bowel obstruction versus ileus. The presacral soft tissue density generally stable from prior study. Osseous structures appearing stable without acute abnormality. IMPRESSION: 1. Surgical changes of apparent sigmoid colon resection and anastomosis. Dilatation of the colon to the level of the transition point with air-fluid. This may reflect a degree of partial large bowel obstruction at the anastomosis versus ileus. 2. Presacral soft tissue density generally stable. Dictated by: Dictated on workstation # [id number]
[2017-01-01] MEDS: fentaNYL INJECTION 100 MCG/2 ML AMP IV PRN ×5 (07:55→22:26)
[2017-01-01] MEDS ORDERED: diphenhydrAMINE 50 MG/ML INJ (BENADRYL) IV PRN (08:00)
[2017-01-01] MEDS: D5 1/2 NS W/KCL 20 MEQ/L 1,000 ML IV SCH ×3 (08:06→22:28)
[2017-01-01] MEDS: PANTOPRAZOLE 40 MG/10 ML (PROTONIX) VIAL IV SCH ×2 (08:06→20:14)
[2017-01-01] MEDS: LEVOFLOXACIN 500 MG/D5W 100 ML (PRE-MIX) IV SCH (08:06)
[2017-01-01 08:11] VITALS: BP 166/97
[2017-01-01 12:53] VITALS: BP 158/92
[2017-01-01] MEDS: PROMETHAZINE INJ 25 MG/ML (PHENERGAN) AMP IV PRN ×2 (13:12→19:51)
--- NOTE | 2017-01-01 13:55 | History & Physicial (CHS) ---
SHALINIJAN MED STUDENT 01/01/17 1355: HPI History of Present Illness: CC: "abdominal pain" Patient is a 51 year old male who presents today in no acute distress with a chief complaint of abdominal pain. Patient states that he constantly has some abdominal pain every since he had surgery to removal rectal cancer in 2012. Normally he takes medications (oxycodone, diazepam, hyoscyamine sulfate) that improve his pain. This past week he has been experiencing nausea, vomiting and diarrhea. He has been unable to keep his "medications down" and the pain has gotten worse, especially over the past three days. The pain is in his lower abdomen and extends down to his pelvic area including his testicles. The patient describes the pain as a sharp, stabbing pain. There is no change in the pain when the patient eats. The patient denies cramping, fever, blood in his vomit, or blood in his stools. Source: patient Exam Limitations: clinical condition (recent dose of pain medication) Date seen by provider: Jan 01, 2017 Time Seen by Provider: 13:15 Attending Physician Janine Herndon MD PCP Jyotsna Teresa DO Consult Date of Admission Jan 01, 2017 at 06:05 Home Medications Home Medications Reviewed patient Home Medication Reconciliation Form Allergies Coded Allergies: morphine (Verified Allergy, Intermediate, 01/01/17) codeine (Verified Adverse Reaction, Unknown, NAUSEA, 01/01/17) [id number] Hx Patient Social History Marrital Status: Number of Children: 3 Number of living children: 3 Living Status: lives with his Alcohol Use: Denies Use Recreational Drug Use: No Smoking Status: Never a Smoker Recent Foreign Travel: No Contact w/other who traveled: No Recent Hopitalizations: No Recent Infectious Disease Expo: No Physical Abuse Screen: No Sexual Abuse: No Immunizations Up To Date Tetanus Booster (TDap): Unknown Past Medical History Past Medical History 1. Rectal Cancer Stage II T3N0M0- sp chemotherapy and radiation, recently stopped secondary to intolerance. Dr. Lora 2. Gastroparesis secondary #1 3. Severe Gastritis per EGD - Kido 4. Small hiatal hernia 3cm - Kido 5. Grade B reflux esophagitis 07/30 6. Recurrent episodes of nausea and vomiting secondary to #2, and #3 7. Neurogenic Bladder with frequent UTI's and pt. performs self catheterization with history of ureteral obstruction and JJ stent Dr. López, with cystectomy and nephrostomy tube placment 03/30 at . 8. HTN 9. C-Diff colitis, treated during stay - and 2- 10. Mood disorder with depression 11. Recurrent Headaches 12. Recurrent admissions for dehydration secondary and acute renal insufficiency secondary to #2, #3, #6 13. Recurrent hypokalemia and hypomagnesia secondary to other co-morbidities Past Surgical History 1. Placement of JJ stent for hydronephrosis 03-06-13 Rene 2. EGD 07-30 Lauren, severe gastritis 3. Diverting loop ileostomy with colon resection 12-06-12 Joey 4. Reversal of ileostomy 04-18-13 5. Colonoscopy x2 by Dr. Aguilar 6. Nephrostomy tube placement with cystectomy 03/30 Family Medical History Family History: Cataract 03 FATHER, Onset:Unknown Chest pain 03 FATHER, Onset:50's - 60 Family history: Allergy 03 MOTHER Family history: Arthritis 03 FATHER 03 MOTHER Family history: Asthma 03 MOTHER Family history: Cardiovascular disease 03 FATHER Family history: Diabetes mellitus 03 FATHER 03 MOTHER Family history: Hypertension 03 FATHER 03 MOTHER Headache 03 FATHER 03 MOTHER Heart disease 03 FATHER History of - respiratory disease 03 MOTHER Hypercholesterolemia 03 FATHER 03 MOTHER Kidney disease 03 MOTHER Psychotic disorder 03 MOTHER Visual impairment 03 FATHER 03 MOTHER No Family History of: Abdominal aortic aneurysm Sreedhar's disease Alcoholism Aphasia Cancer Cancer of colon Congenital heart disease Congestive heart failure Cystic fibrosis Dementia Dysphagia Family history: Alzheimer's disease Family history: Breast disease Family history: Coronary thrombosis Family history: Gastrointestinal disease Family history: Glaucoma Family history: Osteoporosis Family history: Thyroid disorder Hearing loss Hereditary disease History of - anemia History of - disorder History of drug abuse Human immunodeficiency virus (HIV) seropositivity Infertile Malignant neoplasm of lung Myocardial infarction Parkinson's disease Prostate cancer Seizure disorder Stroke Tuberculosis Review of Systems (CHC) Date Seen by Provider: Jan 01, 2017 Time Seen by Provider: 13:30 Constitutional: dizziness Respiratory: no symptoms reported Cardiovascular: no symptoms reported Gastrointestinal: RLQ, LLQ, abdominal pain, diarrhea, nausea, vomiting Genitourinary: other (ostomy bag) Psychiatric/Neurological: Headache Physical Exam-(CHC) Physical Exam Vital Signs VS - Last 72 Hours, by Label 01/01/17 01/01/17 01/01/17/18/17 03:54 04:52 07:05 08:11 Temp 97.7 97.7 97.7 96.9 Pulse 117 84 85 Resp 20 20 18 B/P (MAP) 131/111 166/97 Pulse Ox 96 95 94 O2 Delivery Room Air Room Air Room Air 01/01/17 01/01/17 12:53 14:57 Temp 97.0 Pulse 88 Resp 18 B/P (MAP) 158/92 Pulse Ox 92 92 O2 Delivery Room Air Room Air Capillary Refill : Less Than 3 Seconds General Appearance: no apparent distress Respiratory: lungs clear, normal breath sounds, no respiratory distress, no accessory muscle use Cardiovascular: regular rate, rhythm, no edema, no gallop, no JVD, no murmur Gastrointestinal: abnormal bowel sounds, tenderness Extremities: no pedal edema, no calf tenderness Assessment/Plan Assessment/Plan Admission Dx suspected large bowel obstruction dehydration, hypokalemia Plan suspected large bowel obstruction -continue pain medications -NG tube -encourage ambulation dehydration, hypokalemia -IV fluids, 40 mEq of K+ Diagnosis/Problems: Clinical Quality Measures DVT/VTE Risk/Contraindication: Risk Factor Score Per Nursin RFS Level Per Nursing on Admit: 4+=Very High JANINE HERNDON MD 01/01/17 1611: HPI History of Present Illness: Time Seen by Provider: 14:30 Home Medications Allergies Coded Allergies: morphine (Verified Allergy, Intermediate, 01/01/17) codeine (Verified Adverse Reaction, Unknown, NAUSEA, 01/01/17) [id number]-Aiphsd Hx Past Medical History 1. Rectal Cancer Stage II T3N0M0- sp chemotherapy and radiation stopped secondary to intolerance. Dr. Lora 2. Gastroparesis secondary #1 3. Severe Gastritis per EGD - Kido 4. Small hiatal hernia 3cm - Kido 5. Grade B reflux esophagitis 07/30 6. Recurrent episodes of nausea and vomiting secondary to #2, and #3 7. Neurogenic Bladder with frequent UTI's and pt. performs self catheterization with history of ureteral obstruction and JJ stent Dr. López, with cystectomy and nephrostomy tube placment 03/30 at . 8. HTN 9. C-Diff colitis 10. Mood disorder with depression 11. Recurrent Headaches 12. Recurrent admissions for dehydration secondary and acute renal insufficiency secondary to #2, #3, #6 13. Recurrent hypokalemia and hypomagnesia secondary to other co-morbidities Past Surgical History 1. Placement of JJ stent for hydronephrosis 03-06-13 Rene 2. EGD 07-30 Lauren, severe gastritis 3. Diverting loop ileostomy with colon resection 12-06-12 Joey 4. Reversal of ileostomy 04-18-13 5. Colonoscopy x2 [address] Dr[address] Aguilar 6. Nephrostomy tube placement with cystectomy 03/30 [facility] Family Medical History Family History: Cataract 03 FATHER, Onset:Unknown Chest pain 03 FATHER, Onset:50's - 60 Family history: Allergy 03 MOTHER Family history: Arthritis 03 FATHER 03 MOTHER Family history: Asthma 03 MOTHER Family history: Cardiovascular disease 03 FATHER Family history: Diabetes mellitus 03 FATHER 03 MOTHER Family history: Hypertension 03 FATHER 03 MOTHER Headache 03 FATHER 03 MOTHER Heart disease 03 FATHER History of - respiratory disease 03 MOTHER Hypercholesterolemia 03 FATHER 03 MOTHER Kidney disease 03 MOTHER Psychotic disorder 03 MOTHER Visual impairment 03 FATHER 03 MOTHER No Family History of: Abdominal aortic aneurysm Alderson's disease Alcoholism Aphasia Cancer Cancer of colon Congenital heart disease Congestive heart failure Cystic fibrosis Dementia Dysphagia Family history: Alzheimer's disease Family history: Breast disease Family history: Coronary thrombosis Family history: Gastrointestinal disease Family history: Glaucoma Family history: Osteoporosis Family history: Thyroid disorder Hearing loss Hereditary disease History of - anemia History of - disorder History of drug abuse Human immunodeficiency virus (HIV) seropositivity Infertile Malignant neoplasm of lung Myocardial infarction Parkinson's disease Prostate cancer Seizure disorder Stroke Tuberculosis Reviewed Test Results Reviewed Test Results Lab Laboratory Tests Test 01/01/17 04:09 01/01/17 04:12 Range/Units White Blood Count 16.0 H 4.3-11.0 10^3/uL Red Blood Count 6.16 H 4.35-5.85 10^6/uL Hemoglobin 17.6 13.3-17.7 G/DL Hematocrit 51 40-54 % Mean Corpuscular Volume 82 80-99 FL Mean Corpuscular Hemoglobin 29 25-34 PG Mean Corpuscular Hemoglobin Concent 35 32-36 G/DL Red Cell Distribution Width 13.8 10.0-14.5 % Platelet Count 490 H 130-400 10^3/uL Mean Platelet Volume 10.2 7.4-10.4 FL Neutrophils (%) (Auto) 68 42-75 % Lymphocytes (%) (Auto) 23 12-44 % Monocytes (%) (Auto) 8 0-12 % Eosinophils (%) (Auto) 1 0-10 % Basophils (%) (Auto) 0 0-10 % Neutrophils # (Auto) 10.9 H 1.8-7.8 X 10^3 Lymphocytes # (Auto) 3.6 1.0-4.0 X 10^3 Monocytes # (Auto) 1.3 H 0.0-1.0 X 10^3 Eosinophils # (Auto) 0.1 0.0-0.3 10^3/uL Basophils # (Auto) 0.1 0.0-0.1 10^3/uL Neutrophils % (Manual) 63 % Lymphocytes % (Manual) 29 % Monocytes % (Manual) 6 % Band Neutrophils 2 % Blood Morphology Comment NORMAL Prothrombin Time 13.4 12.2-14.7 SEC INR Comment 1.1 0.8-1.4 Activated Partial Thromboplast Time 28 24-35 SEC Sodium Level 138 135-145 MMOL/L Potassium Level 3.0 L 3.6-5.0 MMOL/L Chloride Level 108 H 98-107 MMOL/L Carbon Dioxide Level 14 L 21-32 MMOL/L Anion Gap 16 H 5-14 MMOL/L Blood Urea Nitrogen 13 7-18 MG/DL Creatinine 1.56 H 0.60-1.30 MG/DL Estimat Glomerular Filtration Rate 47 BUN/Creatinine Ratio 8 0-20 Glucose Level 118 H 70-105 MG/DL Calcium Level 10.1 8.5-10.1 MG/DL Magnesium Level 2.4 1.8-2.4 MG/DL Total Bilirubin 0.6 0.1-1.0 MG/DL Aspartate Amino Transf (AST/SGOT) 31 5-34 U/L Alanine Aminotransferase (ALT/SGPT) 56 H 0-55 U/L Alkaline Phosphatase 97 40-136 U/L Troponin I < 0.30 <0.30 NG/ML Total Protein 8.8 H 6.4-8.2 GM/DL Albumin 4.8 H 3.2-4.5 GM/DL Amylase Level 85 25-125 U/L Lipase 35 8-78 U/L TSH Coal Testing 1.36 0.35-4.94 UIU/ML Urine Color YELLOW Urine Clarity MUCOUS Urine pH 7 5-9 Urine Specific [place] 1.010 L 1.016-1.022 Urine Protein 2+ H NEGATIVE Urine Glucose (UA) NEGATIVE NEGATIVE Urine Ketones NEGATIVE NEGATIVE Urine Nitrite NEGATIVE NEGATIVE Urine Bilirubin NEGATIVE NEGATIVE Urine Urobilinogen NORMAL NORMAL MG/DL Urine Leukocyte Esterase 3+ H NEGATIVE Urine RBC (Auto) 2+ H NEGATIVE Urine RBC 5-10 H /HPF Urine WBC 50-100 H /HPF Urine Squamous Epithelial Cells NONE /HPF Urine Crystals NONE /LPF Urine Bacteria LARGE H /HPF Urine Casts NONE /LPF Urine Mucus NEGATIVE /LPF Urine Culture Indicated YES Urine Opiates Screen NEGATIVE NEGATIVE Urine Oxycodone Screen NEGATIVE NEGATIVE Urine Methadone Screen NEGATIVE NEGATIVE Urine Propoxyphene Screen NEGATIVE NEGATIVE Urine Barbiturates Screen NEGATIVE NEGATIVE Ur Tricyclic Antidepressants Screen NEGATIVE NEGATIVE Urine Phencyclidine Screen NEGATIVE NEGATIVE Urine Amphetamines Screen NEGATIVE NEGATIVE Urine Methamphetamines Screen NEGATIVE NEGATIVE Urine Benzodiazepines Screen POSITIVE H NEGATIVE Urine Cocaine Screen NEGATIVE NEGATIVE Urine Cannabinoids Screen NEGATIVE NEGATIVE Radiology CT abd/pelvis 01/01: IMPRESSION: 1. Surgical changes of apparent sigmoid colon resection and anastomosis. Dilatation of the colon to the level of the transition point with air-fluid. This may reflect a degree of partial large bowel obstruction at the anastomosis versus ileus. 2. Presacral soft tissue density generally stable. Physical Exam-(CHC) Physical Exam Vital Signs VS - Last 72 Hours, by Label 01/01/17 01/01/17 01/01/17 01/01/17 03:54 04:52 07:05 08:11 Temp 97.7 97.7 97.7 96.9 Pulse 117 84 85 Resp 20 20 18 B/P (MAP) 131/111 166/97 Pulse Ox 96 95 94 O2 Delivery Room Air Room Air Room Air 01/01/17 01/01/17 12:53 14:57 Temp 97.0 Pulse 88 Resp 18 B/P (MAP) 158/92 Pulse Ox 92 92 O2 Delivery Room Air Room Air Assessment/Plan Assessment/Plan Plan 51 yo male with history of rectal cancer s/p rectal resection and bladder resection here with abdominal pain and large bowel obstruction vs ileus. Minimize opiates, encourage ambulation, maintain K above 4.0 and Mg above 2.0, Surgery consult in the am, NG tube to LIWS. Acute renal insufficiency with anion gap acidosis likely secondary to dehydration and poor intake, will check lactic acid due AG acidosis. DVT ppx- SCDs, enoxaparin. Diagnosis/Problems: Supervisory-Addendum Brief Supervisory Addendum Patient seen and examined with MS3 Jan Loya, agree with recommendation with changes/additions as noted. JAN LOYA MED STUDENT Jan 01, 2017 13:55 JANINE HERNDON MD Jan 01, 2017 16:11
[2017-01-01] MEDS: POTASSIUM CL 10MEQ/50ML IVPB 50 ML IV SCH ×3 (15:35→17:05)
[2017-01-01 15:40] VITALS: BP 104/62
[2017-01-01] MEDS: ENOXAPARIN 40 MG/0.4 ML (LOVENOX) SYR SC SCH (16:45)
[2017-01-01 19:35] VITALS: BP 125/83
[2017-01-02] VITALS (7 sets, daily range): BP systolic 107–126; BP diastolic 67–88
[2017-01-02] MEDS: fentaNYL INJECTION 100 MCG/2 ML AMP IV PRN ×5 (00:55→12:18)
[2017-01-02] MEDS: PROMETHAZINE INJ 25 MG/ML (PHENERGAN) AMP IV PRN (03:10)
[2017-01-02 05:16] LABS: BASOPHILS % (AUTO) 0 % (0-10); EOSINOPHILS # (AUTO) 0.2 10^3/uL (0.0-0.3); EOSINOPHILS % (AUTO) 3 % (0-10); LYMPHOCYTES # (AUTO) 2.7 X 10^3 (1.0-4.0); LYMPHOCYTES % (AUTO) 33 % (12-44); MEAN CORPUSCULAR HEMOGLOBIN 28 PG (25-34); MEAN CORPUSCULAR HGB CONC 33 G/DL (32-36); MEAN CORPUSCULAR VOLUME 85 FL (80-99); MEAN PLATELET VOLUME 10.1 FL (7.4-10.4); MONOCYTES # (AUTO) 0.5 X 10^3 (0.0-1.0); MONOCYTES % (AUTO) 6 % (0-12); NEUTROPHILS # (AUTO) 4.7 X 10^3 (1.8-7.8); NEUTROPHILS % (AUTO) 58 % (42-75); PLATELET COUNT 266 10^3/uL (130-400); RED BLOOD COUNT 5.18 10^6/uL (4.35-5.85); RED CELL DISTRIBUTION WIDTH 13.6 % (10.0-14.5); WHITE BLOOD COUNT 8.1 10^3/uL (4.3-11.0)
[2017-01-02] MEDS: D5 1/2 NS W/KCL 20 MEQ/L 1,000 ML IV SCH ×3 (05:18→18:46)
[2017-01-02 05:36] LABS: ALBUMIN 3.7 GM/DL (3.2-4.5); CALCIUM 8.2 MG/DL (8.5-10.1); CREATININE SERUM 1.33 MG/DL (0.60-1.30); ICTERUS 0.6 (-100-1.9); POTASSIUM 3.5 MMOL/L (3.6-5.0); TOTAL PROTEIN 6.2 GM/DL (6.4-8.2)
[2017-01-02] MEDS ORDERED: TEMA30CA PO (08:17)
[2017-01-02] MEDS ORDERED: PROM12.59 PO (08:17)
[2017-01-02] MEDS: LEVOFLOXACIN 500 MG/D5W 100 ML (PRE-MIX) IV SCH (08:19)
[2017-01-02] MEDS: PANTOPRAZOLE 40 MG/10 ML (PROTONIX) VIAL IV SCH ×2 (08:20→20:48)
--- NOTE | 2017-01-02 15:23 | Progress Note (SOAP) ---
Subjective Subjective/Events-last exam Patient has NG in place. States that he feels much better this AM. Has had 3 small BM since yesterday. Pain improved. Would like to start some clears. Review of Systems Date Seen by Provider: Jan 02, 2017 Time Seen by Provider: 10:20 General: No Fatigue Pulmonary: No Dyspnea, No Cough Cardiovascular: No: Chest Pain Gastrointestinal: Nausea, No: Hematochezia, Melena, Vomiting Objective Exam Last Set of Vital Signs Vital Signs Date Time Temp Pulse Resp B/P (MAP) Pulse Ox O2 Delivery O2 Flow Rate FiO2 01/02/17 12:33 97.3 64 20 126/88 95 Room Air Capillary Refill : Less Than 3 Seconds I&O Bad tableGeneral: Alert, Oriented X3, No Acute Distress Lungs: Clear to Auscultation, Normal Air Movement Heart: Regular Rate, No Murmurs Abdomen: Normal Bowel Sounds, Soft, No Hepatosplenomegaly, Other (Lower quadrant ttp, no rebound or guarding) Extremities: No Edema, No Tenderness/Swelling Results/Procedures Lab Laboratory Tests 01/01/17 16:17: Lactic Acid Level 1.12 01/02/17 04:22: White Blood Count 8.1, Red Blood Count 5.18, Hemoglobin 14.6, Hematocrit 44, Mean Corpuscular Volume 85, Mean Corpuscular Hemoglobin 28, Mean Corpuscular Hemoglobin Concent 33, Red Cell Distribution Width 13.6, Platelet Count 266, Mean Platelet Volume 10.1, Neutrophils (%) (Auto) 58, Lymphocytes (%) (Auto) 33 , Monocytes (%) (Auto) 6, Eosinophils (%) (Auto) 3, Basophils (%) (Auto) 0, Neutrophils # (Auto) 4.7, Lymphocytes # (Auto) 2.7, Monocytes # (Auto) 0.5, Eosinophils # (Auto) 0.2, Basophils # (Auto) 0.0 01/02/17 04:27: Sodium Level 138, Potassium Level 3.5L, Chloride Level 111H, Carbon Dioxide Level 17L, Anion Gap 10, Blood Urea Nitrogen 12, Creatinine 1.33H, Estimat Glomerular Filtration Rate 57, BUN/Creatinine Ratio 9, Glucose Level 93, Calcium Level 8.2L, Total Bilirubin 1.0, Aspartate Amino Transf (AST/SGOT) 24, Alanine Aminotransferase (ALT/SGPT) 36, Alkaline Phosphatase 71, Total Protein 6.2L, Albumin 3.7 Microbiology 01/01/17 Urine Culture - Preliminary, Resulted Gram Negative [place] Radiology CT abd/pelvis 01/01: IMPRESSION: 1. Surgical changes of apparent sigmoid colon resection and anastomosis. Dilatation of the colon to the level of the transition point with air-fluid. This may reflect a degree of partial large bowel obstruction at the anastomosis versus ileus. 2. Presacral soft tissue density generally stable. Assessment/Plan Assessment/Plan Admission Dx Plan 51 yo M admitted for concerns of SBO Plan SBO likely 2/2 adhesions vs Opiate constipation - NG in place will clamp and start CLD if ok with surgery - Patient had multiple BM and has bowel sounds - Encourage ambulation - Discussed the need to minimize Opiate pain medication ELVA: Improving - Will continue IVF hydrations - Repeat CMP in AM Hypokalemia - replaced today, repeat level in AM Chronic Indwelling Gonzalez catheter - likely colonized, waiting for cultures H/o Rectal Ca s/p multiple surgeries FEN: CLD if ok with surgery DVT PPX: Lovenox Dispo: Continue admission to medical floor Diagnosis/Problems: Clinical Quality Measures DVT/VTE Risk/Contraindication: Risk Factor Score Per Nursin RFS Level Per Nursing on Admit: 4+=Very High WARREN LUNA MD Jan 02, 2017 3:23 pm
[2017-01-02] MEDS: ENOXAPARIN 40 MG/0.4 ML (LOVENOX) SYR SC SCH (17:07)
[2017-01-02] MEDS: oxyCODONE/APAP 10/325MG (PERCOCET 10) TABLET PO SCH ×2 (17:12→20:48)
[2017-01-02] MEDS ORDERED: DIAZEPAM 10 MG PO PRN (17:15)
[2017-01-02] MEDS ORDERED: PROMETHAZINE HCL 12.5 MG PO PRN (17:15)
[2017-01-02] MEDS ORDERED: PROMETHAZINE 25 MG (PHENERGAN) TAB PO PRN (17:30)
[2017-01-02] MEDS: GABAPENTIN 600 MG (NEURONTIN) TAB PO SCH (20:48)
[2017-01-02] MEDS ORDERED: TEMAZEPAM 15 MG (RESTORIL) CAP PO SCH (21:00)
[2017-01-02] MEDS ORDERED: NON-FORMULARY MEDICATION 1 EA EA (Temazepam 30 MG) PO SCH (21:00)
--- NOTE | 2017-01-02 22:09 | CONSULTATION REPORT ---
DATE OF SERVICE: 01/02/2017 PRIMARY CARE PHYSICIAN: Chanda Dawson MD. HISTORY OF PRESENT ILLNESS: The patient is a 51-year-old male who we have seen before in the past. He has a history of rectal carcinoma approximately 15 cm from the anal verge. He was found to have a lesion in 08/2012 and underwent an endorectal ultrasound which confirmed a T3 lesion. He then underwent neoadjuvant chemoradiation and then had a followup flexible sigmoidoscopy on 11/27/2012 which showed little progression of tumor. On 11/27/2012, he underwent a laparoscopic low anterior colorectal resection and anastomosis as well as an ileostomy. The patient then underwent chemotherapy starting in fall. This gentleman had multiple issues with chemotherapy including nausea and vomiting. He also had issues with urinary retention and urethral stricture and was seen by urology at [facility] where urethral stent was placed. He also underwent an EGD and was found to have reflux esophagitis and gastritis which was appropriately treated with a proton pump inhibitor as well as Carafate. Since that time, he has had reversal of the ileostomy; however, due to issues with urinary retention, he underwent an urostomy formation. He presented yesterday morning with abdominal pain and distention, as well as nausea. He reported that he was normal and regular had a bowel movement daily; however, had not for approximately one week. Since being admitted and placed on IV fluids as well as antibiotics for a suspected ureterostomy ureteral infection, he has felt much better and has had multiple loose bowel movements and feels much better. His abdomen is soft with a functional urostomy. PAST MEDICAL HISTORY: Colorectal cancer, hypertension, urinary retention and ureteral stricture. PAST SURGICAL HISTORY: Laparoscopic low anterior colorectal resection and anastomosis with loop ileostomy in 11/2012, ileostomy reversal and creation of urostomy. ALLERGIES: CODEINE, MORPHINE. MEDICATIONS: Diazepam 10 mg p.o. at bedtime p.r.n., gabapentin 600 mg t.i.d., OxyContin 30 mg b.i.d., oxycodone 10/325 every 4 hours p.r.n., promethazine 12.5 mg every 6 hours p.r.n., sertraline 100 mg daily and temazepam 30 mg daily. SOCIAL HISTORY: Negative smoke and negative alcohol. FAMILY HISTORY: Father and mother had diabetes and hypertension. Father had coronary artery disease. VITAL SIGNS: Temperature 97.8, blood pressure 126/88, pulse 64, respirations 20, pulse ox 95% on room air. REVIEW OF SYSTEMS: A well nourished male currently in no acute distress. He is not experiencing any shortness of breath or difficulty breathing. No chest pain, palpitations, diaphoresis. He presented with abdominal distention and nausea; however, since being admitted and placed on IV antibiotics and fluids, he has had multiple bowel movements and feels much better. No red blood per rectum, no dark tarry stools. No fever or chills. No recent inadvertent weight loss. PHYSICAL EXAMINATION: CHEST: Clear. HEART: Regular. EXTREMITIES: No lower extremity edema, negative Homans sign. HEENT: No scleral icterus. NECK: No cervical lymphadenopathy. ABDOMEN: Soft, nontender, nondistended with a functional urostomy tube. LABORATORY DATA: WBC 8.1, hemoglobin 14.6, hematocrit 44, platelets 266,000. BUN 12, creatinine 1.33. ASSESSMENT AND PLAN: A 51-year-old male with abdominal distention, pain and nausea and vomiting most likely secondary to ileus versus severe constipation. He has had multiple issues and multiple surgeries and he currently takes 30 mg of OxyContin b.i.d. as well as 10 mg oxycodone on every 4 hour basis. He reports that he normally takes stool softeners to go; however, has not been as strict recently and has had issues with constipation. He was also found to have a bacterial growth from his urostomy most likely indicating some level of the ureteral infection. Since being placed on antibiotics and IV fluids, his white count has normalized and he feels much better. This may indicate an infection induced ileus as well. At this time, he has bowel function and he feels much better. We will remove his NG tube and start a clear liquid diet and advance as tolerated. We will also resume his previous home medications as well as stool softeners. Once he is tolerating a diet, has adequate pain control and is ambulating well, he may be discharged home. Job ID: [id number] DocumentID: [id number] Dictated Date: 01/02/2017 15:11:01 Application Security Specialist Date: 01/02/2017 22:09:10 Dictated By: VIJAY CANNON MD [facility]
[2017-01-03] MEDS: oxyCODONE/APAP 10/325MG (PERCOCET 10) TABLET PO SCH ×4 (00:57→13:23)
[2017-01-03 04:03] VITALS: BP 111/76
[2017-01-03] MEDS: D5 1/2 NS W/KCL 20 MEQ/L 1,000 ML IV SCH ×2 (05:01→14:00)
[2017-01-03 06:24] LABS: BASOPHILS % (AUTO) 0 % (0-10); EOSINOPHILS # (AUTO) 0.1 10^3/uL (0.0-0.3); EOSINOPHILS % (AUTO) 2 % (0-10); LYMPHOCYTES % (AUTO) 36 % (12-44); MEAN CORPUSCULAR HEMOGLOBIN 29 PG (25-34); MEAN CORPUSCULAR HGB CONC 33 G/DL (32-36); MEAN CORPUSCULAR VOLUME 88 FL (80-99); MEAN PLATELET VOLUME 10.2 FL (7.4-10.4); MONOCYTES # (AUTO) 0.4 X 10^3 (0.0-1.0); MONOCYTES % (AUTO) 8 % (0-12); NEUTROPHILS # (AUTO) 2.9 X 10^3 (1.8-7.8); NEUTROPHILS % (AUTO) 53 % (42-75); PLATELET COUNT 214 10^3/uL (130-400); RED BLOOD COUNT 4.51 10^6/uL (4.35-5.85); RED CELL DISTRIBUTION WIDTH 13.6 % (10.0-14.5); WHITE BLOOD COUNT 5.5 10^3/uL (4.3-11.0)
[2017-01-03 06:45] LABS: ALBUMIN 3.4 GM/DL (3.2-4.5); BILIRUBIN,TOTAL 0.4 MG/DL (0.1-1.0); CALCIUM 8.1 MG/DL (8.5-10.1); CREATININE SERUM 1.56 MG/DL (0.60-1.30); ICTERUS 0.2 (-100-1.9); POTASSIUM 4.4 MMOL/L (3.6-5.0); TOTAL PROTEIN 5.8 GM/DL (6.4-8.2)
[2017-01-03] MEDS: PANTOPRAZOLE 40 MG/10 ML (PROTONIX) VIAL IV SCH (08:18)
[2017-01-03] MEDS: GABAPENTIN 600 MG (NEURONTIN) TAB PO SCH ×2 (08:19→13:23)
[2017-01-03] MEDS: LEVOFLOXACIN 500 MG/D5W 100 ML (PRE-MIX) IV SCH (08:19)
[2017-01-03 08:31] VITALS: BP 106/68
--- NOTE | 2017-01-03 11:20 | Progress Note (SOAP) ---
Subjective Date Seen by Provider: Jan 03, 2017 Time Seen by Provider: 11:00 Subjective/Events-last exam doing much better. tolerating regular diet and having multiple BM's. Objective Exam Vital Signs Date Time Temp Pulse Resp B/P (MAP) Pulse Ox O2 Delivery O2 Flow Rate FiO2 01/03/17 08:31 97.8 79 20 106/68 99 Room Air 01/03/17 04:03 96.7 70 20 111/76 98 Room Air 01/02/17 23:35 97.2 86 24 110/72 97 Room Air 01/02/17 19:50 99.6 85 18 107/68 96 Room Air 01/02/17 15:30 98.4 83 20 122/84 97 Room Air 01/02/17 12:33 97.3 64 20 126/88 95 Room Air I & O 01/03/17 07:00 Intake Total 3720 ml Output Total 1575 ml Balance 2145 ml Capillary Refill : Less Than 3 Seconds General Appearance: No Apparent Distress HEENT: PERRL/EOMI Neck: Full Range of Motion Respiratory: Chest Non Tender, Lungs Clear, Normal Breath Sounds Cardiovascular: Regular Rate, Rhythm Gastrointestinal: normal bowel sounds, non tender, soft Extremity: Normal Capillary Refill Neurologic/Psychiatric: Alert, Oriented x3 Skin: Normal Color Lymphatic: No Adenopathy Results Lab Laboratory Tests 01/03/17 06:11: White Blood Count 5.5, Red Blood Count 4.51, Hemoglobin 12.9L, Hematocrit 40, Mean Corpuscular Volume 88, Mean Corpuscular Hemoglobin 29, Mean Corpuscular Hemoglobin Concent 33, Red Cell Distribution Width 13.6, Platelet Count 214, Mean Platelet Volume 10.2, Neutrophils (%) (Auto) 53, Lymphocytes (%) (Auto) 36 , Monocytes (%) (Auto) 8, Eosinophils (%) (Auto) 2, Basophils (%) (Auto) 0, Neutrophils # (Auto) 2.9, Lymphocytes # (Auto) 2.0, Monocytes # (Auto) 0.4, Eosinophils # (Auto) 0.1, Basophils # (Auto) 0.0, Sodium Level 143, Potassium Level 4.4, Chloride Level 118H, Carbon Dioxide Level 19L, Anion Gap 6, Blood Urea Nitrogen 7, Creatinine 1.56H, Estimat Glomerular Filtration Rate 47, BUN/ Creatinine Ratio 4, Glucose Level 77, Calcium Level 8.1L, Total Bilirubin 0.4, Aspartate Amino Transf (AST/SGOT) 20, Alanine Aminotransferase (ALT/SGPT) 29, Alkaline Phosphatase 63, Total Protein 5.8L, Albumin 3.4 Microbiology 01/01/17 Urine Culture - Preliminary, Resulted Klebsiella Pneumoniae Providencia Rettgeri Escherichia Coli Assessment/Plan Assessment/Plan Assess & Plan/Chief Complaint PSBO vs UTI induced ileus. resolving. may be discharged home. on multiple narcotics so recommend high fiber diet and stool softener/laxative. Clinical Quality Measures DVT/VTE Risk/Contraindication: Risk Factor Score Per Nursin RFS Level Per Nursing on Admit: 4+=Very High VIJAY CANNON MD Jan 03, 2017 11:20 am
[2017-01-03 11:52] VITALS: BP 110/75
--- NOTE | 2017-01-03 14:02 | Discharge Instructions ---
Discharge Inst-[facility] Discharge Medications New, Converted or Re-Newed RX: Other (No new scripts) Continued Medications: Diazepam (Valium) 10 Mg Tablet 10 MG PO HS PRN for INSOMNIA/ANXIETY, TAB Gabapentin (Gabapentin) 600 Mg Tablet 1200 MG PO TID, TAB TAKES 2 (600MG) TABLETS Oxycodone HCl (Oxycodone HCl) 30 Mg Tablet 30 MG PO BID PRN for SEVERE PAIN, TAB Oxycodone HCl/Acetaminophen (Oxycodone-Acetaminophen 10-325) 1 Each Tablet 1 TAB PO Q4H, TAB Promethazine HCl (Promethazine HCl) 12.5 Mg Tablet 12.5 MG PO Q6H PRN for NAUSEA/VOMITING-2ND LINE, TAB Sertraline HCl (Sertraline HCl) 100 Mg Tablet 100 MG PO 1600, TAB Temazepam (Temazepam) 30 Mg Capsule 30 MG PO HS, CAP Patient Instructions Goal/Follow Up Appt: Keep your follow up appt with Leonardo Santacruz Patient Instructions: - Needs to taper down on Narcotic pain medication due to risk of small bowel obstruction Return to [facility] For: Unable to tolerate medications Chest pain Shortness of breath Activity & Diet Discharge Diet: Soft Diet Activity as Tolerated: Yes Copy Copies To 1: [facility] WARREN Patricio MD Jan 03, 2017 14:02
--- NOTE | 2017-01-03 14:03 | Discharge Summary ---
Diagnosis/Chief Complaint Date of Admission Jan 01, 2017 at 06:05 Date of Discharge Admission Diagnosis Admission Diagnosis Chief Complaint/HPI Chief Complaint/HPI Discharge Summary-Simple/Stand Consultations Discharge Physical Examination Allergies: Coded Allergies: morphine (Verified Allergy, Intermediate, 01/01/17) codeine (Verified Adverse Reaction, Unknown, NAUSEA, 01/01/17) Vitals & I&Os Vital Sign - Last 12Hours Date Time Temp Pulse Resp B/P (MAP) Pulse Ox O2 Delivery O2 Flow Rate FiO2 01/03/17 11:52 99.1 76 20 110/75 100 Room Air Intake and Output 01/03/17 00:00 Intake Total 1360 ml Output Total 925 ml Balance 435 ml Hospital Course See final discharge diagnosis. Radiology Reviewed CT abd/pelvis 01/01: IMPRESSION: 1. Surgical changes of apparent sigmoid colon resection and anastomosis. Dilatation of the colon to the level of the transition point with air-fluid. This may reflect a degree of partial large bowel obstruction at the anastomosis versus ileus. 2. Presacral soft tissue density generally stable. Discharge Instructions to patient/family Please see electonic discharge instructions given to patient. Discharge Medications Reviewed and agree with Discharge Medication list on patient's Discharge Instruction sheet Clinical Quality Measures DVT/VTE Risk/Contraindication: Risk Factor Score Per Nursin RFS Level Per Nursing on Admit: 4+=Very High WARREN LUNA MD Jan 03, 2017 14:03
[2017-01-03 15:42] VITALS: BP 110/75
[2017-01-03] MEDS ORDERED: SERTRALINE 100 MG (ZOLOFT) TAB PO SCH (16:00)
--- OUTSIDE RECORDS SUMMARY | 2017-01-04 15:35 | XMS REPORT | Continuity of Care Document ---
Author Author [facility] Organization [facility] Address Unknown Phone Unavailable Care Team Providers Care Learning Analyst Name Role Phone Gildardo Walker PCP [phone] Source Comments Some departments are not documenting in the electronic medical record. If you do not see the information that you expected, contact Release of Information in the Health Information Management department at [phone] for further assistance in locating additional records.[facility] Active Allergies and Adverse Reactions Allergen Noted [...] retention 02/10/2014 Rectal cancer (HCC) 02/10/2014 Overview: [id number] S/p brain-adjuvant chemo/XRT S/p LAR with diverting [...]
--- OUTSIDE RECORDS SUMMARY | 2017-01-04 15:40 | XMS REPORT | Continuity of Care Document ---
Author Author [facility] Address Unknown Phone Unavailable Allergies Active Description Code Type Severity Reaction Onset Reported/Identified Relationship to Patient Clinical Status Yes trazodone 50 mg tablet Drug Allergy 10/17/2012 Yes trazodone 50 mg tablet Drug Allergy N/A N/A 10/17/2012 Yes codeine [id number] Drug Allergy Unknown NAUSEA 01/01/2017 Yes morphine [id number] Drug Allergy Moderate N/A 01/01/2017 Medications Problems Date Dx Coded Attending Type [...] VIRAJ SOLIS, ROXI Oseguera Ot Z79.899 OTHER CORRECTION (CURRENT) DRUG THERAPY 06/15/1108 VIRAJ SOLIS, ROXI [...] 569.42 ANAL OR RECTAL PAIN 10/03/2012 SHEREE SPEECH THERAPY TEACHER, LINDA T 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 [...] 789.05 ABDOMINAL PAIN PERIUMBILIC 01/01/2013 PITTS DO, NIKHLI K 296.90 MOOD DISORDER 01/01/2013 PITTS DO, [...] APRN 599.0 URINARY TRACT INFECTION 01/01/2013 SHEREE SPEECH THERAPY TEACHER, LINDA T 789.05 ABDOMINAL PAIN PERIUMBILIC 01/01/2013 [...] 789.04 ABDOMINAL PAIN, LEFT LOWER QUADRANT 03/26/2013 IPTTS DO, NIKHIL K Ot 041.49 03/26/2013 PITTS [...] APRN T 783.41 FAILURE TO THRIVE 09/06/2013 LNIDA BENTLEY APRN T 783.41 FAILURE TO THRIVE [...] LINDA BENTLEY Ot 591 06/20/2014 LINDA BENTLEY STRETCHING MACHINE TENDER FRAME Ot 789.05 06/20/2014 CLAUDE SOLIS, RIVER [place] [...] ADOLPH M Ot V74.8 03/26/2015 TED PA STRETCHING MACHINE TENDER FRAME Ot 154.1 03/26/2015 TED PA STRETCHING MACHINE TENDER FRAME Ot 280.9 03/26/2015 TED PA S STRETCHING MACHINE TENDER FRAME Ot 311 03/26/2015 TED PA S STRETCHING MACHINE TENDER FRAME Ot 530.81 03/26/2015 TED PA S STRETCHING MACHINE TENDER FRAME Ot 536.3 03/26/2015 TED PA S STRETCHING MACHINE TENDER FRAME Ot 607.84 03/26/2015 TED PA S STRETCHING MACHINE TENDER FRAME Ot V58.69 03/26/2015 TED PA STRETCHING MACHINE TENDER FRAME Ot 154.1 03/26/2015 TED PA S STRETCHING MACHINE TENDER FRAME Ot 280.9 03/26/2015 TED PA S STRETCHING MACHINE TENDER FRAME Ot 311 03/26/2015 TED PA S STRETCHING MACHINE TENDER FRAME Ot 530.81 03/26/2015 TED PA S STRETCHING MACHINE TENDER FRAME Ot 536.3 03/26/2015 TED PA S STRETCHING MACHINE TENDER FRAME Ot 607.84 03/26/2015 TED PA S STRETCHING MACHINE TENDER FRAME Ot V58.69 03/26/2015 VIRAJ SOLIS, ROXI Oseguera [...] SCREEN-BACTERIAL DIS NEC 11/10/2015 PA TED S STRETCHING MACHINE TENDER FRAME Ot 154.1 MALIGNANT NEOPL RECTUM 11/10/2015 PA, HILAH S STRETCHING MACHINE TENDER FRAME Ot 280.9 IRON DEFIC ANEMIA NOS 11/10/2015 PA HILAH S STRETCHING MACHINE TENDER FRAME Ot 311 DEPRESSIVE DISORDER NEC 11/10/2015 PA HILAH S STRETCHING MACHINE TENDER FRAME Ot 530.81 ESOPHAGEAL REFLUX 11/10/2015 PA TED S STRETCHING MACHINE TENDER FRAME Ot 536.3 GASTROPARESIS 11/10/2015 PA, CRISTOAH S STRETCHING MACHINE TENDER FRAME Ot 607.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, ORGANIC ORIGN 11/10/2015 PA HILAH S STRETCHING MACHINE TENDER FRAME Ot V58.69 OTH MED,LT,CURRENT USE 11/10/2015 PA TED S STRETCHING MACHINE TENDER FRAME Ot 154.1 MALIGNANT NEOPL RECTUM 11/10/2015 PA TED S STRETCHING MACHINE TENDER FRAME Ot 280.9 IRON DEFIC ANEMIA NOS 11/10/2015 PA HILAH S STRETCHING MACHINE TENDER FRAME Ot 311 DEPRESSIVE DISORDER NEC 11/10/2015 PA TED S STRETCHING MACHINE TENDER FRAME Ot 530.81 ESOPHAGEAL REFLUX 11/10/2015 PA, TED S STRETCHING MACHINE TENDER FRAME Ot 536.3 GASTROPARESIS 11/10/2015 PA, TED S STRETCHING MACHINE TENDER FRAME Ot 607.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, ORGANIC ORIGN 11/10/2015 THIERNO TED S STRETCHING MACHINE TENDER FRAME Ot V58.69 OTH MED,LT,CURRENT USE 11/10/2015 VIRAJ [...] 03/01/2016 SANTOS SOLIS, ADOLPH Jon Ot V72.81 [id number] CARDIOVASCULAR 03/01/2016 SANTOS SOLIS, ADOLPH Jon Ot [...] NOS 03/03/2016 ADOLPH GRAHAM MD Ot V72.81 [id number] CARDIOVASCULAR 03/03/2016 ADOLPH GRAHAM MD Ot V74.8 SCREEN-BACTERIAL DIS NEC 03/03/2016 LINDA BENTLEY STRETCHING MACHINE TENDER FRAME Ot 591 HYDRONEPHROSIS 03/03/2016 LINDA BENTLEY STRETCHING MACHINE TENDER FRAME Ot 789.05 ABDOMINAL PAIN, PERIUMBILIC 03/03/2016 CLAUDE [...] V74.8 SCREEN-BACTERIAL DIS NEC 03/15/2016 TED PA STRETCHING MACHINE TENDER FRAME Ot 154.1 MALIGNANT NEOPL RECTUM 03/15/2016 TED PA STRETCHING MACHINE TENDER FRAME Ot 280.9 IRON DEFIC ANEMIA NOS 03/15/2016 TED PA STRETCHING MACHINE TENDER FRAME Ot 311 DEPRESSIVE DISORDER NEC 03/15/2016 TED PA STRETCHING MACHINE TENDER FRAME Ot 530.81 ESOPHAGEAL REFLUX 03/15/2016 TED PA STRETCHING MACHINE TENDER FRAME Ot 536.3 GASTROPARESIS 03/15/2016 TED PA STRETCHING MACHINE TENDER FRAME Ot 607.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, ORGANIC ORIGN 03/15/2016 TED PAP Ot V58.69 OTH MED,LT,CURRENT USE 03/15/2016 TED PA STRETCHING MACHINE TENDER FRAME Ot 154.1 MALIGNANT NEOPL RECTUM 03/15/2016 TED PA STRETCHING MACHINE TENDER FRAME Ot 280.9 IRON DEFIC ANEMIA NOS 03/15/2016 CRISTO PAMIGUEL A Juan STRETCHING MACHINE TENDER FRAME Ot 311 DEPRESSIVE DISORDER NEC 03/15/2016 CRISTO PAMIGUEL A Juan STRETCHING MACHINE TENDER FRAME Ot 530.81 ESOPHAGEAL REFLUX 03/15/2016 THIERNO TED Juan STRETCHING MACHINE TENDER FRAME Ot 536.3 GASTROPARESIS 03/15/2016 THIERNO TED Juan STRETCHING MACHINE TENDER FRAME Ot 607.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, ORGANIC ORIGN 03/15/2016 PATED Juan STRETCHING MACHINE TENDER FRAME Ot V58.69 OTH MED,LT,CURRENT USE 03/15/2016 VIRAJ [...] SOLIS, ROXI Ana Rosa Ot Z79.899 OTHER SOLID WASTE FACILITY OPERATOR (CURRENT) DRUG THERAPY 03/28/2016 VIRAJ SOLIS, ROXI [...] Ot 154.1 MALIGNANT NEOPL RECTUM 04/14/2016 SANTOS SOILS, ADOLPH Jon Ot V72.63 PRE-PROCEDURAL LABORATORY EXAMINATION 04/14/2016 SANTOS SOLIS, ADOLPH Jon Ot V74.8 SCREEN-BACTERIAL DIS NEC 04/14/2016 TED PA STRETCHING MACHINE TENDER FRAME Ot 154.1 MALIGNANT NEOPL RECTUM 04/14/2016 CRISTO PAMIGUEL A Drake STRETCHING MACHINE TENDER FRAME Ot 280.9 IRON DEFIC ANEMIA NOS 04/14/2016 TED PA STRETCHING MACHINE TENDER FRAME Ot 311 DEPRESSIVE DISORDER NEC 04/14/2016 TED PA STRETCHING MACHINE TENDER FRAME Ot 530.81 ESOPHAGEAL REFLUX 04/14/2016 TED PA STRETCHING MACHINE TENDER FRAME Ot 536.3 GASTROPARESIS 04/14/2016 TED PA STRETCHING MACHINE TENDER FRAME Ot 607.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, ORGANIC ORIGN 04/14/2016 TED PA STRETCHING MACHINE TENDER FRAME Ot V58.69 OTH MED,LT,CURRENT USE 04/14/2016 TED PA STRETCHING MACHINE TENDER FRAME Ot 154.1 MALIGNANT NEOPL RECTUM 04/14/2016 TED PA STRETCHING MACHINE TENDER FRAME Ot 280.9 IRON DEFIC ANEMIA NOS 04/14/2016 PATED Juan STRETCHING MACHINE TENDER FRAME Ot 311 DEPRESSIVE DISORDER NEC 04/14/2016 TED PA STRETCHING MACHINE TENDER FRAME Ot 530.81 ESOPHAGEAL REFLUX 04/14/2016 TED PA STRETCHING MACHINE TENDER FRAME Ot 536.3 GASTROPARESIS 04/14/2016 PATED Juan STRETCHING MACHINE TENDER FRAME Ot 607.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, ORGANIC ORIGN 04/14/2016 TED PA STRETCHING MACHINE TENDER FRAME Ot V58.69 OTH MED,LT,CURRENT USE 04/14/2016 ROXI [...] 04/14/2016 ROXI CALI MD Ot Z79.899 OTHER CORRECTION (CURRENT) DRUG THERAPY 04/14/2016 ROXI CALI MD [...] 04/18/2016 ROXI CALI MD, Ot Z79.899 OTHER CORRECTION (CURRENT) DRUG THERAPY 04/18/2016 ROXI CALI MD [...] 05/17/2016 ROXI CALI MD, Ot Z79.899 OTHER CORRECTION (CURRENT) DRUG THERAPY 05/17/2016 ROXI CALI MD, [...] 06/07/2016 ROXI CALI MD, Ot Z79.899 OTHER SOLID WASTE FACILITY OPERATOR (CURRENT) DRUG THERAPY 06/07/2016 ROXI CALI MD [...] 06/16/2016 ROXI CALI MD, Ot Z79.899 OTHER CORRECTION (CURRENT) DRUG THERAPY 06/16/2016 VIRAJ SOLIS, ROXI [...] SCREEN-BACTERIAL DIS NEC 08/13/2016 TED PA S STRETCHING MACHINE TENDER FRAME Ot 154.1 MALIGNANT NEOPL RECTUM 08/13/2016 TED PA S STRETCHING MACHINE TENDER FRAME Ot 280.9 IRON DEFIC ANEMIA NOS 08/13/2016 TED PA S STRETCHING MACHINE TENDER FRAME Ot 311 DEPRESSIVE DISORDER NEC 08/13/2016 TED PA S STRETCHING MACHINE TENDER FRAME Ot 530.81 ESOPHAGEAL REFLUX 08/13/2016 TED PA S STRETCHING MACHINE TENDER FRAME Ot 536.3 GASTROPARESIS 08/13/2016 TED PA S STRETCHING MACHINE TENDER FRAME Ot 607.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, ORGANIC ORIGN 08/13/2016 TED PA S STRETCHING MACHINE TENDER FRAME Ot V58.69 OTH MED,LT,CURRENT USE 08/13/2016 TED PA S STRETCHING MACHINE TENDER FRAME Ot 154.1 MALIGNANT NEOPL RECTUM 08/13/2016 TED PA S STRETCHING MACHINE TENDER FRAME Ot 280.9 IRON DEFIC ANEMIA NOS 08/13/2016 CRISTO PAAH S STRETCHING MACHINE TENDER FRAME Ot 311 DEPRESSIVE DISORDER NEC 08/13/2016 TED PA S STRETCHING MACHINE TENDER FRAME Ot 530.81 ESOPHAGEAL REFLUX 08/13/2016 PATED Juan S STRETCHING MACHINE TENDER FRAME Ot 536.3 GASTROPARESIS 08/13/2016 PATED Juan S STRETCHING MACHINE TENDER FRAME Ot 607.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, ORGANIC ORIGN 08/13/2016 TED PA S STRETCHING MACHINE TENDER FRAME Ot V58.69 OTH MED,LT,CURRENT USE 08/13/2016 VIRAJ [...] 08/13/2016 ROXI CALI MD Ot Z79.899 OTHER CORRECTION (CURRENT) DRUG THERAPY 08/13/2016 ROXI CALI MD Ot Z92.3 PERSONAL HISTORY OF IRRADIATION 08/14/2016 ROXI CALI MD, Ot C20 MALIGNANT NEOPLASM OF RECTUM 08/14/2016 ROXI CALI MD, Ot D50.9 IRON DEFICIENCY ANEMIA, UNSPECIFIED 08/14/2016 ROXI CALI MD, Ot F33.9 MAJOR DEPRESSIVE DISORDER, RECURRENT, UN 08/14/2016 RXOI CALI MD Ot G47.00 INSOMNIA, UNSPECIFIED 08/14/2016 ROXI CALI MD Ot N39.490 OVERFLOW INCONTINENCE 08/14/2016 ROXI CALI MD Ot Z79.899 OTHER SOLID WASTE FACILITY OPERATOR (CURRENT) DRUG THERAPY 08/14/2016 ROXI CALI MD [...] 08/14/2016 SHAY ALFONSO MD Ot Z79.899 OTHER SOLID WASTE FACILITY OPERATOR (CURRENT) DRUG THERAPY 08/14/2016 SHAY ALFONSO MD [...] 08/15/2016 SHAY ALFONSO MD Ot Z79.899 OTHER SOLID WASTE FACILITY OPERATOR (CURRENT) DRUG THERAPY 08/15/2016 SHAY ALFONSO MD [...] SHAY ALFONSO MD T Ot Z79.899 OTHER SOLID WASTE FACILITY OPERATOR (CURRENT) DRUG THERAPY 08/16/2016 SHAY ALFONSO MD [...] 08/17/2016 ROXI CALI MD Ot Z79.899 OTHER CORRECTION (CURRENT) DRUG THERAPY 08/17/2016 ROXI CALI MD [...] 08/17/2016 SHAY ALFONSO MD Ot Z79.899 OTHER SOLID WASTE FACILITY OPERATOR (CURRENT) DRUG THERAPY 08/17/2016 SHAY ALFONSO MD Ot Z85.048 PRSNL HX OF MALIG NEOPLM OF RECTUM , RECT 08/17/2016 SHAY ALFONSO MD Ot 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 08/19/2016 SHAY ALFONSO MD Ot E87.6 HYPOKALEMIA 08/19/2016 SHAY ALFONSO MD Ot I10 ESSENTIAL (PRIMARY) HYPERTENSION 08/19/2016 SHAY ALFONSO MD Ot N39.0 URINARY TRACT INFECTION, SITE NOT SPECIF 08/19/2016 SAHY ALFONSO MD Ot R10.30 LOWER ABDOMINAL PAIN, UNSPECIFIED 08/19/2016 SHAY ALFONSO MD Ot R11.2 NAUSEA WITH VOMITING, UNSPECIFIED 08/19/2016 NATY SOLIS, SHAY Lester Ot R19.7 DIARRHEA, UNSPECIFIED 08/19/2016 NATY SOLIS, SHAY Lester Ot Z79.899 OTHER SOLID WASTE FACILITY OPERATOR (CURRENT) DRUG THERAPY 08/19/2016 NATY SOLIS, SHAY [...] 09/09/2016 ROXI CALI MD Ot Z79.899 OTHER CORRECTION (CURRENT) DRUG THERAPY 09/09/2016 ROXI CALI MD [...] 09/13/2016 ROXI CALI MD Ot Z79.899 OTHER CORRECTION (CURRENT) DRUG THERAPY 09/13/2016 ROXI CALI MD [...] SCREEN-BACTERIAL DIS NEC 09/21/2016 TED PA S STRETCHING MACHINE TENDER FRAME Ot 154.1 MALIGNANT NEOPL RECTUM 09/21/2016 PATED Juan S STRETCHING MACHINE TENDER FRAME Ot 280.9 IRON DEFIC ANEMIA NOS 09/21/2016 TED PA S STRETCHING MACHINE TENDER FRAME Ot 311 DEPRESSIVE DISORDER NEC 09/21/2016 PATED Juan S STRETCHING MACHINE TENDER FRAME Ot 530.81 ESOPHAGEAL REFLUX 09/21/2016 TED PA S STRETCHING MACHINE TENDER FRAME Ot 536.3 GASTROPARESIS 09/21/2016 TED PA S STRETCHING MACHINE TENDER FRAME Ot 607.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, ORGANIC ORIGN 09/21/2016 PATED Juan S STRETCHING MACHINE TENDER FRAME Ot V58.69 OTH MED,LT,CURRENT USE 09/21/2016 TED PA S STRETCHING MACHINE TENDER FRAME Ot 154.1 MALIGNANT NEOPL RECTUM 09/21/2016 PATED Juan S STRETCHING MACHINE TENDER FRAME Ot 280.9 IRON DEFIC ANEMIA NOS 09/21/2016 PATED Juan S STRETCHING MACHINE TENDER FRAME Ot 311 DEPRESSIVE DISORDER NEC 09/21/2016 TED PA S STRETCHING MACHINE TENDER FRAME Ot 530.81 ESOPHAGEAL REFLUX 09/21/2016 PATED Juan S STRETCHING MACHINE TENDER FRAME Ot 536.3 GASTROPARESIS 09/21/2016 PATED Juan S STRETCHING MACHINE TENDER FRAME Ot 607.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, ORGANIC ORIGN 09/21/2016 TED PA S STRETCHING MACHINE TENDER FRAME Ot V58.69 OTH MED,LT,CURRENT USE 09/21/2016 VIRAJ SOLSI, ROXI Oseguera Ot 154.1 MALIGNANT NEOPL RECTUM [...] VIRAJ SOLIS, ROXI Oseguera Ot Z79.899 OTHER CORRECTION (CURRENT) DRUG THERAPY 09/21/2016 VIRAJ SOLIS, ROXI [...] SCREEN-BACTERIAL DIS NEC 09/21/2016 TED PA S STRETCHING MACHINE TENDER FRAME Ot 154.1 MALIGNANT NEOPL RECTUM 09/21/2016 TED PA S STRETCHING MACHINE TENDER FRAME Ot 280.9 IRON DEFIC ANEMIA NOS 09/21/2016 TED PA S STRETCHING MACHINE TENDER FRAME Ot 311 DEPRESSIVE DISORDER NEC 09/21/2016 TED PA S STRETCHING MACHINE TENDER FRAME Ot 530.81 ESOPHAGEAL REFLUX 09/21/2016 TED PA S STRETCHING MACHINE TENDER FRAME Ot 536.3 GASTROPARESIS 09/21/2016 TED PA S STRETCHING MACHINE TENDER FRAME Ot 607.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, ORGANIC ORIGN 09/21/2016 TED PA S STRETCHING MACHINE TENDER FRAME Ot V58.69 OTH MED,LT,CURRENT USE 09/21/2016 TED PA S STRETCHING MACHINE TENDER FRAME Ot 154.1 MALIGNANT NEOPL RECTUM 09/21/2016 TED PA S STRETCHING MACHINE TENDER FRAME Ot 280.9 IRON DEFIC ANEMIA NOS 09/21/2016 TED PA S STRETCHING MACHINE TENDER FRAME Ot 311 DEPRESSIVE DISORDER NEC 09/21/2016 TED PA S STRETCHING MACHINE TENDER FRAME Ot 530.81 ESOPHAGEAL REFLUX 09/21/2016 TED PA S STRETCHING MACHINE TENDER FRAME Ot 536.3 GASTROPARESIS 09/21/2016 PATED Juan S STRETCHING MACHINE TENDER FRAME Ot 607.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, ORGANIC ORIGN 09/21/2016 TED PA S STRETCHING MACHINE TENDER FRAME Ot V58.69 OTH MED,LT,CURRENT USE 09/21/2016 ROXI [...] 09/21/2016 ROXI CALI MD Ot Z79.899 OTHER SOLID WASTE FACILITY OPERATOR (CURRENT) DRUG THERAPY 09/21/2016 ROXI CALI MD, [...] Ot C20 MALIGNANT NEOPLASM OF RECTUM 10/06/2016 ORXI CLAI MD, Ot D50.9 IRON DEFICIENCY ANEMIA, UNSPECIFIED 10/06/2016 ROXI CALI MD, Ot F33.9 MAJOR DEPRESSIVE DISORDER, RECURRENT, UN 10/06/2016 ROXI CALI MD Ot G47.00 INSOMNIA, UNSPECIFIED 10/06/2016 ROXI CALI MD, Ot N39.490 OVERFLOW INCONTINENCE 10/06/2016 VIRAJ SOLIS, ROXI Oseguera Ot Z79.899 OTHER CORRECTION (CURRENT) DRUG THERAPY 10/06/2016 VIRAJ SOLIS, ROXI [...] SCREEN-BACTERIAL DIS NEC 10/06/2016 TED PA S STRETCHING MACHINE TENDER FRAME Ot 154.1 MALIGNANT NEOPL RECTUM 10/06/2016 TED PA S STRETCHING MACHINE TENDER FRAME Ot 280.9 IRON DEFIC ANEMIA NOS 10/06/2016 CRISTO PAAH S STRETCHING MACHINE TENDER FRAME Ot 311 DEPRESSIVE DISORDER NEC 10/06/2016 CRISTO PAAH S STRETCHING MACHINE TENDER FRAME Ot 530.81 ESOPHAGEAL REFLUX 10/06/2016 PATED S STRETCHING MACHINE TENDER FRAME Ot 536.3 GASTROPARESIS 10/06/2016 PACRISTOAH S STRETCHING MACHINE TENDER FRAME Ot 607.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, ORGANIC ORIGN 10/06/2016 CRISTO PAAH S STRETCHING MACHINE TENDER FRAME Ot V58.69 OTH MED,LT,CURRENT USE 10/06/2016 PACRISTOAH S STRETCHING MACHINE TENDER FRAME Ot 154.1 MALIGNANT NEOPL RECTUM 10/06/2016 CRISTO PAAH S STRETCHING MACHINE TENDER FRAME Ot 280.9 IRON DEFIC ANEMIA NOS 10/06/2016 THIERNO HILAH S STRETCHING MACHINE TENDER FRAME Ot 311 DEPRESSIVE DISORDER NEC 10/06/2016 PA HILAH S STRETCHING MACHINE TENDER FRAME Ot 530.81 ESOPHAGEAL REFLUX 10/06/2016 PA HILAH S STRETCHING MACHINE TENDER FRAME Ot 536.3 GASTROPARESIS 10/06/2016 PACRISTOAH S STRETCHING MACHINE TENDER FRAME Ot 607.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, ORGANIC ORIGN 10/06/2016 CRISTO PAAH S STRETCHING MACHINE TENDER FRAME Ot V58.69 OTH MED,LT,CURRENT USE 10/06/2016 ROXI [...] Ot G47.00 INSOMNIA, UNSPECIFIED 10/06/2016 ROXI CALI MD Ot N39.490 OVERFLOW INCONTINENCE 10/06/2016 ROXI CALI MD Ot Z79.899 OTHER CORRECTION (CURRENT) DRUG THERAPY 10/06/2016 ROXI CALI MD [...] DO JOSE ANTONIO K Ot Z79.899 OTHER SOLID WASTE FACILITY OPERATOR (CURRENT) DRUG THERAPY 10/07/2016 INEZ DO JOSE [...] DO JOSE ANTONIO K Ot Z79.899 OTHER CORRECTION (CURRENT) DRUG THERAPY 10/07/2016 INEZ DICKSON JOSE [...] 10/12/2016 ROXI CALI MD Ot Z79.899 OTHER CORRECTION (CURRENT) DRUG THERAPY 10/12/2016 ROXI CALI MD [...] SHAY T Ot R19.7 DIARRHEA, UNSPECIFIED 10/21/2016 SHYA ALFONSO MD Ot R42 DIZZINESS AND GIDDINESS [...] R11.2 NAUSEA WITH VOMITING, UNSPECIFIED 10/23/2016 SHAY ALFNOSO MD Ot R19.7 DIARRHEA, UNSPECIFIED 10/23/2016 SHAY ALFONSO MD Ot R42 DIZZINESS AND GIDDINESS 10/23/2016 SHAY ALFONSO MD Ot Z85.048 PRSNL HX OF MALIG NEOPLM OF RECTUM , RECT 10/23/2016 SHAY ALFONSO MD Ot Z92.21 PERSONAL HISTORY OF ANTINEOPLASTIC CHEMO 10/23/2016 SHAY ALFONSO MD Ot Z92.3 PERSONAL HISTORY OF IRRADIATION 10/24/2016 LIZBETH SOLIS, SHANTE Peña Ot 154.1 MALIGNANT NEOPL RECTUM 10/24/2016 SHANTE NIEVES MD Ot 571.8 CHRONIC LIVER DIS NEC 10/24/2016 SHANTE NIEVES MD Ot 591 HYDRONEPHROSIS 10/24/2016 SANTOS SOLIS, ADOLHP Jon Ot 154.1 MALIGNANT NEOPL RECTUM 10/24/2016 SANTOS SOLIS, ADOLPH Jon Ot V72.63 PRE-PROCEDURAL LABORATORY EXAMINATION 10/24/2016 SANTOS SOLIS, ADOLPH Jon Ot V74.8 SCREEN-BACTERIAL DIS NEC 10/24/2016 TED PA STRETCHING MACHINE TENDER FRAME Ot 154.1 MALIGNANT NEOPL RECTUM 10/24/2016 TED PA STRETCHING MACHINE TENDER FRAME Ot 280.9 IRON DEFIC ANEMIA NOS 10/24/2016 PATED Juan STRETCHING MACHINE TENDER FRAME Ot 311 DEPRESSIVE DISORDER NEC 10/24/2016 PATED Juan STRETCHING MACHINE TENDER FRAME Ot 530.81 ESOPHAGEAL REFLUX 10/24/2016 TED PA STRETCHING MACHINE TENDER FRAME Ot 536.3 GASTROPARESIS 10/24/2016 TED PA STRETCHING MACHINE TENDER FRAME Ot 607.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, ORGANIC ORIGN 10/24/2016 TED PA STRETCHING MACHINE TENDER FRAME Ot V58.69 OTH MED,LT,CURRENT USE 10/24/2016 TED PA STRETCHING MACHINE TENDER FRAME Ot 154.1 MALIGNANT NEOPL RECTUM 10/24/2016 TED PA STRETCHING MACHINE TENDER FRAME Ot 280.9 IRON DEFIC ANEMIA NOS 10/24/2016 TED PA STRETCHING MACHINE TENDER FRAME Ot 311 DEPRESSIVE DISORDER NEC 10/24/2016 TED PA STRETCHING MACHINE TENDER FRAME Ot 530.81 ESOPHAGEAL REFLUX 10/24/2016 TED PA STRETCHING MACHINE TENDER FRAME Ot 536.3 GASTROPARESIS 10/24/2016 TED PA STRETCHING MACHINE TENDER FRAME Ot 607.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, ORGANIC ORIGN 10/24/2016 TED PA STRETCHING MACHINE TENDER FRAME Ot V58.69 OTH MED,LT,CURRENT USE 10/24/2016 ROXI [...] 10/24/2016 ROXI CALI MD, Ot Z79.899 OTHER CORRECTION (CURRENT) DRUG THERAPY 10/24/2016 ROXI CALI MD [...] 10/24/2016 ROXI CALI MD, Ot Z79.899 OTHER CORRECTION (CURRENT) DRUG THERAPY 10/24/2016 ROXI CALI MD, [...] 10/24/2016 ROXI CALI MD, Ot Z79.899 OTHER CORRECTION (CURRENT) DRUG THERAPY 10/24/2016 ROXI CALI MD, [...] GENERALIZED ABDOMINAL PAIN 11/13/2016 JOSE ANTONIO WILEY DO, Ot R11.2 NAUSEA WITH VOMITING, UNSPECIFIED 11/13/2016 JOSE ANTONIO WILEY DO, Ot Z85.048 PRSNL HX OF MALIG NEOPLM OF RECTUM, RECT 11/13/2016 JOSE ANTONIO WILEY DO, Ot Z93.2 ILEOSTOMY STATUS 11/13/2016 JOSE ANTONIO WILEY DO, Ot Z98.0 INTESTINAL BYPASS AND ANASTOMOSIS STATUS 11/15/2016 ROXI CALI MD, Ot C20 MALIGNANT NEOPLASM OF RECTUM 11/29/2016 ROXI CALI MD, Ot C20 MALIGNANT NEOPLASM OF RECTUM 12/09/2016 ROXI CALI MD, Ot C20 MALIGNANT NEOPLASM OF RECTUM 12/09/2016 ROXI CALI MD, Ot D50.9 IRON DEFICIENCY ANEMIA, UNSPECIFIED 12/09/2016 ROXI CALI MD, Ot F33.9 MAJOR DEPRESSIVE DISORDER, RECURRENT, UN 12/09/2016 ROXI CALI MD, Ot G47.00 INSOMNIA, UNSPECIFIED 12/09/2016 ROXI CALI MD, Ot N39.490 OVERFLOW INCONTINENCE 12/09/2016 ROXI CALI MD, Ot Z79.899 OTHER CORRECTION (CURRENT) DRUG THERAPY 12/09/2016 ROXI CALI MD, Ot Z92.3 PERSONAL HISTORY OF IRRADIATION 12/11/2016 ROXI CALI MD, Ot C20 MALIGNANT NEOPLASM OF RECTUM 12/11/2016 ROXI CALI MD, Ot D50.9 IRON DEFICIENCY ANEMIA, UNSPECIFIED 12/11/2016 ROXI CALI MD, Ot F33.9 MAJOR DEPRESSIVE DISORDER, RECURRENT, UN 12/11/2016 ROXI CALI MD, Ot G47.00 INSOMNIA, UNSPECIFIED 12/11/2016 ROXI CALI MD, Ot N39.490 OVERFLOW INCONTINENCE 12/11/2016 ROXI CALI MD, Ot Z79.899 OTHER CORRECTION (CURRENT) DRUG THERAPY 12/11/2016 ROXI CALI MD Ot Z92.3 PERSONAL HISTORY OF IRRADIATION 12/15/2016 LINDA CASAS DO Ot E86.0 DEHYDRATION 12/15/2016 LINDA CASAS DO Ot E87.6 HYPOKALEMIA 12/15/2016 LINDA CASAS DO Ot G89.29 OTHER CHRONIC PAIN 12/15/2016 LINDA CASAS DO Ot R10.84 GENERALIZED ABDOMINAL PAIN 12/15/2016 LINDA CASAS DO, Ot R11.2 NAUSEA WITH VOMITING, UNSPECIFIED 12/15/2016 LINDA CASAS DO, Ot R19.7 DIARRHEA, UNSPECIFIED 12/15/2016 LINDA CASAS DO, Ot Z85.048 PRSNL HX OF MALIG NEOPLM OF RECTUM, RECT 12/15/2016 LINDA CASAS DO, Ot Z93.2 ILEOSTOMY STATUS 01/01/2017 ROXI CALI MD, Ot C20 MALIGNANT NEOPLASM OF RECTUM 01/01/2017 ROXI CALI MD, Ot D50.9 IRON DEFICIENCY ANEMIA, UNSPECIFIED 01/01/2017 ROXI CALI MD, Ot F33.9 MAJOR DEPRESSIVE DISORDER, RECURRENT, UN 01/01/2017 ROXI CALI MD, Ot G47.00 INSOMNIA, UNSPECIFIED 01/01/2017 ROXI CALI MD, Ot N39.490 OVERFLOW INCONTINENCE 01/01/2017 ROXI CALI MD, Ot Z79.899 OTHER CORRECTION (CURRENT) DRUG THERAPY 01/01/2017 ROXI CALI MD, Ot Z92.3 PERSONAL HISTORY OF IRRADIATION Procedures Code [place] [address] ROUTINE VENIPUNCTURE 08/10/2012 09243 HEMOCCULT 2012 84550 HEMOCCULT 2012 72975 CBC 08/10/2012 65619 CMP 08/10/2012 73538 LIPID PANEL 08/104950 GFR CALC (RESULT ONLY) 08/10/2012 80198 HEMOGLOBIN (IN-HOUSE) 08/27/2012 45.42 08/29/2012 48.24 08/29/2012 Medical O [facility] 10/04/2012 46.01 12/06/2012 47.19 12/06/2012 48.63 12/06/2012 86.07 12/06/2012 57.32 12/13/2012 75689 UA W/ CULTURE IF INDICATED 01/01/2013 98604 URINE DRUG SCREEN (IN-HOUSE) 01/01/[address] ABDOMEN & PELVIS W/ & W/O CONTRAST 01/02/2013 61123 ROUTINE VENIPUNCTURE 01/02/2013 69152 CULTURE URINE 39812 CMP 01/03/2013 8671638 GFR CALC (RESULT ONLY) 01/03/2013 91095 CBC 01/03/2013 45.92 SM BOWEL-RECT STUMP ANAS 04/18/2013 46.51 SM BOWEL STOMA CLOSURE 04/18/2013 45.16 ESOPHAGOGASTRODUODENOSCOPY [EGD] W/CLOSE 07/19/2013 45.23 COLONOSCOPY 10/18 Physical Physical Therapy, [facility] 05/21/2014 [facility] [place] Results Test Result Range Complete blood count [...] culture - 02/28/16 02:15 Bacterial urine culture [id number] NRG COLONY COUNT 10,000/ML - 100,000/ML NRG FTX;REPORTABLE SENSITIVITY REPORTED 03/01 08:40 NR Bacterial susceptibility panel - 02/28/16 02:15 Gentamicin [...] susceptibility test by minimum inhibitory concentration - [facility] Bacterial susceptibility panel - 02/28/16 02:15 Gentamicin [...] susceptibility test by minimum inhibitory concentration 2 [facility] Bacterial urine culture - 05/30/16 13:50 Bacterial urine culture [id number] NRG COLONY COUNT >100,000/ML NR FTX;REPORTABLE SEE COMMENT NRG FREE TEXT ENTRY 2 PLUS MIXED GRAM POSITIVES NR FREE TEXT ENTRY 3 <10,000/ML [facility] Bacterial susceptibility panel - 05/30/16 13:50 Gentamicin [...] susceptibility test by minimum inhibitory concentration - [facility] Bacterial susceptibility panel - 05/30/16 13:50 Gentamicin [...] susceptibility test by minimum inhibitory concentration - [facility] Complete blood count (CBC) with automated white [...] culture - 08/14/16 01:13 Bacterial urine culture [id number] NRG COLONY COUNT >100,000/ML NRG FTX;REPORTABLE SENSITIVITY REPORTED 08/16/16 10:05 NRG URINE CULTURE RESULTS PLUS NRG Bacterial susceptibility panel - 08/14/16 01:13 Gentamicin [...] susceptibility test by minimum inhibitory concentration - [facility] Bacterial susceptibility panel - 08/14/16 01:13 Gentamicin [...] susceptibility test by minimum inhibitory concentration - [facility] Bacterial susceptibility panel - 01/29/17 01:13 Gentamicin susceptibility test by minimum inhibitory [...] INFLUENZA A AND B ANTIGENS BY IA [facility] Blood lactic acid measurement (moles/volume) - 09/21/16 [...] OF GROWTH Isolated NRG Bacterial blood culture [id number] NRG Capillary blood glucose measurement by glucometer [...] OF GROWTH Isolated NRG Bacterial blood culture [id number] NRG FREE TEXT ENTRY 2 NOT STREPTOCOCCUS [...] culture - 09/21/16 10:15 Bacterial urine culture [id number] NRG COLONY COUNT 10,000/ML - 100,000/ML NRG FTX;REPORTABLE SENSITIVITY REPORTED AT 1712, 3-9-17 NRG Bacterial susceptibility panel - 09/21/16 10:15 Gentamicin [...] susceptibility test by minimum inhibitory concentration - [facility] Bacterial susceptibility panel - 09/21/16 10:15 Gentamicin [...] susceptibility test by minimum inhibitory concentration - [facility] Complete blood count (CBC) with automated white [...] culture - 10/21/16 00:27 Bacterial urine culture [id number] NRG COLONY COUNT 10,000/ML - 100,000/ML NRG FTX;REPORTABLE SENSITIVITY REPORTED 10/23/16 8:45 NRG Bacterial susceptibility panel - 10/21/16 00:27 Oxacillin [...] test by minimum inhibitory concentration 1 NRG Complete blood count (CBC) with automated white blood cell (WBC) differential - 01/01/17 04:09 Blood leukocytes automated count (number/volume) 16.0 10*3/ uL 4.3-11.0 Blood erythrocytes automated count (number/volume) 6.16 10*6 /uL 4.35-5.85 Venous blood hemoglobin measurement (mass/volume) 17.6 g/dL 13.3-17.7 Blood hematocrit (volume fraction) 51 % 40-54 Automated erythrocyte mean corpuscular volume 82 [foz_us] 80-99 Automated erythrocyte mean corpuscular hemoglobin (mass per erythrocyte) 29 pg 25-34 Automated erythrocyte mean corpuscular hemoglobin concentration measurement ( mass/volume) 35 g/dL 32-36 Automated erythrocyte distribution width ratio 13.8 % 10.0-14.5 Automated blood platelet count (count/volume) 490 10*3/uL 130-400 Automated blood platelet mean volume measurement 10.2 [foz_ us] 7.4-10.4 Automated blood neutrophils/100 leukocytes 68 % 42-75 Automated blood lymphocytes/100 leukocytes 23 % 12-44 Blood monocytes/100 leukocytes 8 % 0-12 Automated blood eosinophils/100 leukocytes 1 % 0-10 Automated blood basophils/100 leukocytes 0 % 0-10 Blood neutrophils automated count (number/volume) 10.9 10*3 1.8-7.8 Blood lymphocytes automated count (number/volume) 3.6 10*3 1.0-4.0 Blood monocytes automated count (number/volume) 1.3 10*3 0.0-1.0 Automated eosinophil count 0.1 10*3/uL 0.0-0.3 Automated blood basophil count (count/volume) 0.1 10*3/uL 0.0-0.1 PT panel in platelet poor plasma by coagulation assay - 01/01/17 04:09 Prothrombin time (PT) in platelet poor plasma by coagulation assay 13.4 s 12.2-14.7 INR in platelet poor plasma or blood by coagulation assay 1.1 0.8-1.4 Activated partial thromboplastin time (aPTT) in platelet poor plasma bycoagulation assay - 01/01/17 04:09 Activated partial thromboplastin time (aPTT) in platelet poor plasma bycoagulation assay 28 s 24-35 Comprehensive metabolic panel - 01/01/17 04:09 Serum or plasma sodium measurement (moles/volume) 138 mmol/ L 135-145 Serum or plasma potassium measurement (moles/volume) 3.0 mmol/L 3.6-5.0 Serum or plasma chloride measurement (moles/volume) 108 mmol /L 98-107 Carbon dioxide 14 mmol/L 21-32 Serum or plasma anion gap determination (moles/volume) 16 mmol/L 5-14 Serum or plasma urea nitrogen measurement (mass/volume) 13 mg/dL 7-18 Serum or plasma creatinine measurement (mass/volume) 1.56 mg /dL 0.60-1.30 Serum or plasma urea nitrogen/creatinine mass ratio 8 0-20 Serum or plasma creatinine measurement with calculation of estimated glomerular filtration rate 47 NRG Serum or plasma glucose measurement (mass/volume) 118 mg/dL 70-105 Serum or plasma calcium measurement (mass/volume) 10.1 mg/ dL 8.5-10.1 Serum or plasma total bilirubin measurement (mass/volume) 0.6 mg/dL 0.1-1.0 Serum or plasma alkaline phosphatase measurement (enzymatic activity/volume) 97 U/L 40-136 Serum or plasma aspartate aminotransferase measurement (enzymatic activity/ volume) 31 U/L 5-34 Serum or plasma alanine aminotransferase measurement (enzymatic activity/volume ) 56 U/L 0-55 Serum or plasma protein measurement (mass/volume) 8.8 g/dL 6.4-8.2 Serum or plasma albumin measurement (mass/volume) 4.8 g/dL 3.2-4.5 Magnesium - 01/01/17 04:09 Magnesium 2.4 mg/dL 1.8-2.4 Serum or plasma troponin i.cardiac measurement (mass/volume) - 01/01/17 04:09 Serum or plasma troponin i.cardiac measurement (mass/volume) < ng/mL <0.30 Serum or plasma amylase measurement (enzymatic activity/volume) - 01/01/17 04: 09 Serum or plasma amylase measurement (enzymatic activity/volume) 85 U/L 25-125 Blood manual differential performed detection - 01/01/17 04:09 Blood monocytes/100 leukocytes 6 % NRG Manual blood segmented neutrophils/100 leukocytes 63 % NRG Blood band neutrophils/100 leukocytes 2 % NRG Manual blood lymphocytes/100 leukocytes 29 % NRG Blood erythrocyte morphology finding identification NORMAL NRG Lipase - 01/01/17 04:09 Lipase 35 U/L 8-78 Serum or plasma thyrotropin measurement by detection limit <=0.05 miu/l (units/ volume) - 01/01/17 04:09 Serum or plasma thyrotropin measurement by detection limit <=0.05 miu/l (units/ volume) 1.36 u[iU]/mL 0.35-4.94 Complete urinalysis with reflex to culture - 01/01/17 04:12 Urine color determination YELLOW NRG Urine clarity determination MUCOUS NRG Urine pH measurement by test strip [...] urine sediment by light microscopy NONE NRG Crystals detection in urine sediment by light microscopy NONE NRG Casts detection in urine sediment by light microscopy NONE NRG Mucus detection in urine sediment by light microscopy NEGATIVE NRG Complete urinalysis with reflex to culture YES NRG Urine drug screening test - 01/01/17 04:12 Urine phencyclidine detection by screening method NEGATIVE [...] detection NEGATIVE NEGATIVE Bacterial urine culture - 01/01/17 04:12 Bacterial urine culture [id number] NRG COLONY COUNT 10,000/ML - 100,000/ML NRG FTX;REPORTABLE SENSITIVITY REPORTED 01/02 19:05 NRG FREE TEXT ENTRY 3 MIXED GRAM 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 [facility] Bacterial susceptibility panel - 01/01/17 04:12 Gentamicin susceptibility test by minimum inhibitory concentration [...] susceptibility test by minimum inhibitory concentration - [facility] Bacterial susceptibility panel - 01/01/17 04:12 Gentamicin susceptibility test by minimum inhibitory concentration <= NRG Trimethoprim/sulfamethoxazole susceptibility test by minimum inhibitoryconcentration <= NRG Ampicillin susceptibility test by minimum inhibitory concentration R NRG Tobramycin susceptibility test by minimum inhibitory concentration <= NRG Cefazolin susceptibility test by minimum inhibitory concentration >= NRG Ceftriaxone susceptibility test by minimum inhibitory concentration <= NRG Ampicillin/sulbactam susceptibility test by minimum inhibitory concentration <= NRG Piperacillin/tazobactam susceptibility test by minimum inhibitory concentration <= NRG Ciprofloxacin susceptibility test by minimum inhibitory concentration <= NRG Meropenem susceptibility test by minimum inhibitory concentration <= NRG Nitrofurantoin susceptibility test by minimum inhibitory concentration R NRG Aztreonam susceptibility test by minimum inhibitory concentration <= NR Bacterial susceptibility panel - 01/01/17 04:12 Gentamicin susceptibility test by minimum inhibitory concentration <= NRG Trimethoprim/sulfamethoxazole susceptibility test by minimum inhibitoryconcentration <= NRG Ampicillin susceptibility test by minimum inhibitory concentration 16 NRG Tobramycin susceptibility test by minimum inhibitory concentration <= NRG Cefazolin susceptibility test by minimum inhibitory concentration <= NRG Ceftriaxone susceptibility test by minimum inhibitory concentration <= NRG Ampicillin/sulbactam susceptibility test by minimum inhibitory concentration I NRG Piperacillin/tazobactam susceptibility test by minimum inhibitory concentration <= NRG Ciprofloxacin susceptibility test by minimum inhibitory concentration <= NRG Meropenem susceptibility test by minimum inhibitory concentration <= NRG Nitrofurantoin susceptibility test by minimum inhibitory concentration <= NRG Aztreonam susceptibility test by minimum inhibitory concentration <= NRG Extended spectrum beta lactamase (ESBL) producing bacteria susceptibility test by minimum inhibitory concentration - NRG Blood lactic acid measurement (moles/volume) - 01/01/17 16:17 Blood lactic acid measurement (moles/volume) 1.12 mmol/L 0.50-2.00 Complete blood count (CBC) with automated white blood cell (WBC) differential - 01/02/17 04:22 Blood leukocytes automated count (number/volume) 8.1 10*3/ uL 4.3-11.0 Blood erythrocytes automated count (number/volume) 5.18 10*6 /uL 4.35-5.85 Venous blood hemoglobin measurement (mass/volume) 14.6 g/dL 13.3-17.7 Blood hematocrit (volume fraction) 44 % 40-54 Automated erythrocyte mean corpuscular volume 85 [foz_us] 80-99 Automated erythrocyte mean corpuscular hemoglobin (mass per erythrocyte) 28 pg 25-34 Automated erythrocyte mean corpuscular hemoglobin concentration measurement ( mass/volume) 33 g/dL 32-36 Automated erythrocyte distribution width ratio 13.6 % 10.0-14.5 Automated blood platelet count (count/volume) 266 10*3/uL 130-400 Automated blood platelet mean volume measurement 10.1 [foz_ us] 7.4-10.4 Automated blood neutrophils/100 leukocytes 58 % 42-75 Automated blood lymphocytes/100 leukocytes 33 % 12-44 Blood monocytes/100 leukocytes 6 % 0-12 Automated blood eosinophils/100 leukocytes 3 % 0-10 Automated blood basophils/100 leukocytes 0 % 0-10 Blood neutrophils automated count (number/volume) 4.7 10*3 1.8-7.8 Blood lymphocytes automated count (number/volume) 2.7 10*3 1.0-4.0 Blood monocytes automated count (number/volume) 0.5 10*3 0.0-1.0 Automated eosinophil count 0.2 10*3/uL 0.0-0.3 Automated blood basophil count (count/volume) 0.0 10*3/uL 0.0-0.1 Comprehensive metabolic panel - 01/02/17 04:27 Serum or plasma sodium measurement (moles/volume) 138 mmol/ L 135-145 Serum or plasma potassium measurement (moles/volume) 3.5 mmol/L 3.6-5.0 Serum or plasma chloride measurement (moles/volume) 111 mmol /L 98-107 Carbon dioxide 17 mmol/L 21-32 Serum or plasma anion gap determination (moles/volume) 10 mmol/L 5-14 Serum or plasma urea nitrogen measurement (mass/volume) 12 mg/dL 7-18 Serum or plasma creatinine measurement (mass/volume) 1.33 mg /dL 0.60-1.30 Serum or plasma urea nitrogen/creatinine mass ratio 9 0-20 Serum or plasma creatinine measurement with calculation of estimated glomerular filtration rate 57 NRG Serum or plasma glucose measurement (mass/volume) 93 mg/dL 70-105 Serum or plasma calcium measurement (mass/volume) 8.2 mg/dL 8.5-10.1 Serum or plasma total bilirubin measurement (mass/volume) 1.0 mg/dL 0.1-1.0 Serum or plasma alkaline phosphatase measurement (enzymatic activity/volume) 71 U/L 40-136 Serum or plasma aspartate aminotransferase measurement (enzymatic activity/ volume) 24 U/L 5-34 Serum or plasma alanine aminotransferase measurement (enzymatic activity/volume ) 36 U/L 0-55 Serum or plasma protein measurement (mass/volume) 6.2 g/dL 6.4-8.2 Serum or plasma albumin measurement (mass/volume) 3.7 g/dL 3.2-4.5 Complete blood count (CBC) with automated white blood cell (WBC) differential - 01/03/17 06:11 Blood leukocytes automated count (number/volume) 5.5 10*3/ uL 4.3-11.0 Blood erythrocytes automated count (number/volume) 4.51 10*6 /uL 4.35-5.85 Venous blood hemoglobin measurement (mass/volume) 12.9 g/dL 13.3-17.7 Blood hematocrit (volume fraction) 40 % 40-54 Automated erythrocyte mean corpuscular volume 88 [foz_us] 80-99 Automated erythrocyte mean corpuscular hemoglobin (mass per erythrocyte) 29 pg 25-34 Automated erythrocyte mean corpuscular hemoglobin concentration measurement ( mass/volume) 33 g/dL 32-36 Automated erythrocyte distribution width ratio 13.6 % 10.0-14.5 Automated blood platelet count (count/volume) 214 10*3/uL 130-400 Automated blood platelet mean volume measurement 10.2 [foz_ us] 7.4-10.4 Automated blood neutrophils/100 leukocytes 53 % 42-75 Automated blood lymphocytes/100 leukocytes 36 % 12-44 Blood monocytes/100 leukocytes 8 % 0-12 Automated blood eosinophils/100 leukocytes 2 % 0-10 Automated blood basophils/100 leukocytes 0 % 0-10 Blood neutrophils automated count (number/volume) 2.9 10*3 1.8-7.8 Blood lymphocytes automated count (number/volume) 2.0 10*3 1.0-4.0 Blood monocytes automated count (number/volume) 0.4 10*3 0.0-1.0 Automated eosinophil count 0.1 10*3/uL 0.0-0.3 Automated blood basophil count (count/volume) 0.0 10*3/uL 0.0-0.1 Comprehensive metabolic panel - 01/03/17 06:11 Serum or plasma sodium measurement (moles/volume) 143 mmol/ L 135-145 Serum or plasma potassium measurement (moles/volume) 4.4 mmol/L 3.6-5.0 Serum or plasma chloride measurement (moles/volume) 118 mmol /L 98-107 Carbon dioxide 19 mmol/L 21-32 Serum or plasma anion gap determination (moles/volume) 6 mmol/L 5-14 Serum or plasma urea nitrogen measurement (mass/volume) 7 mg /dL 7-18 Serum or plasma creatinine measurement (mass/volume) 1.56 mg /dL 0.60-1.30 Serum or plasma urea nitrogen/creatinine mass ratio 4 0-20 Serum or plasma creatinine measurement with calculation of estimated glomerular filtration rate 47 NRG Serum or plasma glucose measurement (mass/volume) 77 mg/dL 70-105 Serum or plasma calcium measurement (mass/volume) 8.1 mg/dL 8.5-10.1 Serum or plasma total bilirubin measurement (mass/volume) 0.4 mg/dL 0.1-1.0 Serum or plasma alkaline phosphatase measurement (enzymatic activity/volume) 63 U/L 40-136 Serum or plasma aspartate aminotransferase measurement (enzymatic activity/ volume) 20 U/L 5-34 Serum or plasma alanine aminotransferase measurement (enzymatic activity/volume ) 29 U/L 0-55 Serum or plasma protein measurement (mass/volume) 5.8 g/dL 6.4-8.2 Serum or plasma albumin measurement (mass/volume) 3.4 g/dL 3.2-4.5 Encounters ACCT No. Visit Date/Time Discharge Status Pt. Type Provider Facility Loc./Unit Complaint [id number] 10/29/2014 09:34:00 10/29/2014 23: 59:59 CLS Outpatient JANINE HERNDON MD [id number] 10/17/2014 10:25:00 10/17/2014 23: 59:59 CLS Outpatient LINDA BENTLEY APRN [id number] 09/29/2014 13:37:00 09/29/2014 23: 59:59 CLS Outpatient JANINE HERNDON MD [id number] 08/01/2014 14:42:00 08/01/2014 23: 59:59 CLS Outpatient LINDA BENTLEY APRN [id number] 06/27/2014 13:22:00 06/27/2014 23: 59:59 CLS Outpatient LINDA BENTLEY APRN [id number] 05/21/2014 14:00:00 05/21/2014 23: 59:59 CLS Outpatient LINDA BENTLEY APRN [id number] 05/07/2014 10:40:00 05/07/2014 23: 59:59 [facility] Outpatient LINDA BENTLEY APRN [id number] 02/25/2014 15:37:00 02/25/2014 23: 59:59 [facility] Outpatient LINDA BENTLEY APRN [id number] 02/19/2014 00:00:00 02/19/2014 23: 59:59 CLS Outpatient LINDA BENTLEY APRN [id number] 01/29/2014 16:00:00 01/29/2014 23: 59:59 [facility] Outpatient LINDA BENTLEY APRN [id number] 12/11/2013 11:57:00 12/11/2013 23: 59:59 CLS Outpatient LINDA EBNTLEY APRN [id number] 10/30/2013 14:47:00 10/30/2013 23: 59:59 CLS Outpatient LINDA BENTLEY APRN [id number] 09/03/2013 07:55:00 09/03/2013 23: 59:59 CLS Outpatient GURMEET HERNDON MDHANY Zeinab [id number] 09/02/2013 09:25:00 09/02/2013 23: 59:59 CLS Outpatient LINDA BENTLEY APRN [id number] 05/27/2013 12:30:00 05/27/2013 23: 59:59 CLS Outpatient ADOLPH GRAHAM MD [id number] 04/10/2013 11:45:00 04/10/2013 23: 59:59 CLS Outpatient LINDA BENTLEY APRN [id number] 04/01/2013 15:10:00 04/01/2013 23: 59:59 CLS Outpatient HONG DICKSON NIKHIL Ana Rosa [id number] 03/22/2013 00:00:00 03/22/2013 23: 59:59 CLS Outpatient RIVER ARCE MD [id number] 10/17/2012 16:05:00 10/17/2012 23: 59:59 CLS Outpatient LINDA BENTLEY APRN [id number] 10/03/2012 17:55:00 10/03/2012 23: 59:59 CLS Outpatient LINDA BENTLEY APRN [id number] 09/19/2012 18:39:00 09/19/2012 23: 59:59 CLS Outpatient ADOLPH GRAHAM MD [id number] 08/27/2012 12:52:00 08/27/2012 23: 59:59 CLS Outpatient [id number] 08/10/2012 11:19:00 08/10/2012 23: 59:59 CLS Outpatient LINDA BENTLEY APRN [id number] 08/03/2012 15:56:00 08/03/2012 23: 59:59 CLS Outpatient [id number] 03/11/2013 14:50:00 Document Registration [id number] 01/22/2013 15:25:00 Document Registration [id number] 01/07/2013 15:54:00 Document Registration [id number] 01/02/2013 16:51:00 Document Registration [id number] 01/01/2013 15:26:00 Document Registration
--- OUTSIDE RECORDS SUMMARY | 2017-01-04 15:59 | XMS REPORT | Continuity of Care Document ---
Author Author [facility] Organization [facility] Address Unknown Phone Unavailable Care Team Providers Care [employer] Name Role Phone Gildardo Walker PCP [phone] Source Comments Some departments are not documenting in the electronic medical record. If you do not see the information that you expected, contact Release of Information in the Health Information Management department at [phone] for further assistance in locating additional records.[facility] Active Allergies and Adverse Reactions Allergen [...] retention 02/10/2014 Rectal cancer (HCC) 02/10/2014 Overview: [id number] S/p brain-adjuvant chemo/XRT S/p LAR with diverting [...]
--- OUTSIDE RECORDS SUMMARY | 2017-01-04 16:04 | XMS REPORT | Continuity of Care Document ---
Author Author [facility] Address Unknown Phone Unavailable Allergies Active Description Code Type Severity Reaction Onset Reported/Identified Relationship to Patient Clinical Status Yes trazodone 50 mg tablet Drug Allergy 10/17/2012 Yes trazodone 50 mg tablet Drug Allergy N/A N/A 10/17/2012 Yes codeine [id number] Drug Allergy Unknown NAUSEA 01/01/2017 Yes morphine [id number] Drug Allergy Moderate N/A 01/01/2017 Medications Problems [...] VIRAJ SOLIS, ROXI Oseguera Ot Z79.899 OTHER SENIOR CARE (CURRENT) DRUG THERAPY 06/15/1108 VIRAJ SOLIS, ROXI [...] 569.42 ANAL OR RECTAL PAIN 10/03/2012 SHEREE ACCOUNT TECHNICIAN, LINDA T 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 [...] APRN 599.0 URINARY TRACT INFECTION 01/01/2013 SHEREE ACCOUNT TECHNICIAN, LINDA T 789.05 ABDOMINAL PAIN PERIUMBILIC 01/01/2013 KATRINA SOLIS, JANINE N 296.90 MOOD DISORDER 01/01/2013 KATRINA SOLSI, JANINE N 599.0 URINARY TRACT INFECTION 01/01/2013 KATRINA SOLIS, JANINE N 789.05 ABDOMINAL PAIN PERIUMBILIC 01/01/2013 SHEREE FARRELL, LINDA T 296.90 MOOD DISORDER 01/01/2013 SHEREE RVIASN, LINDA T 599.0 URINARY TRACT INFECTION 01/01/2013 [...] 05/20/2013 LINDA BENTLEY APRN 591 HYDRONEPHROSIS 05/20/2013 JANNIE HERNDON MD 591 HYDRONEPHROSIS 05/20/2013 LINDA BENTLEY [...] LINDA BENTLEY Ot 591 06/20/2014 LINDA BENTLEY CORPORATE EXECUTIVE CHEF Ot 789.05 06/20/2014 CLAUDE SOLIS, R[place] [...] ADOLPH M Ot V74.8 03/26/2015 TED PA CORPORATE EXECUTIVE CHEF Ot 154.1 03/26/2015 TED PA CORPORATE EXECUTIVE CHEF Ot 280.9 03/26/2015 TED PA S CORPORATE EXECUTIVE CHEF Ot 311 03/26/2015 TED PA S CORPORATE EXECUTIVE CHEF Ot 530.81 03/26/2015 TED PA S CORPORATE EXECUTIVE CHEF Ot 536.3 03/26/2015 TED PA S CORPORATE EXECUTIVE CHEF Ot 607.84 03/26/2015 TED PA S CORPORATE EXECUTIVE CHEF Ot V58.69 03/26/2015 TED PA CORPORATE EXECUTIVE CHEF Ot 154.1 03/26/2015 TED PA S CORPORATE EXECUTIVE CHEF Ot 280.9 03/26/2015 TED PA S CORPORATE EXECUTIVE CHEF Ot 311 03/26/2015 TED PA S CORPORATE EXECUTIVE CHEF Ot 530.81 03/26/2015 TED PA S CORPORATE EXECUTIVE CHEF Ot 536.3 03/26/2015 TED PA S CORPORATE EXECUTIVE CHEF Ot 607.84 03/26/2015 TED PA S CORPORATE EXECUTIVE CHEF Ot V58.69 03/26/2015 VIRAJ SOLIS, ROXI Oseguera [...] SCREEN-BACTERIAL DIS NEC 11/10/2015 PA TED S CORPORATE EXECUTIVE CHEF Ot 154.1 MALIGNANT NEOPL RECTUM 11/10/2015 PA, HILAH S CORPORATE EXECUTIVE CHEF Ot 280.9 IRON DEFIC ANEMIA NOS 11/10/2015 PA HILAH S CORPORATE EXECUTIVE CHEF Ot 311 DEPRESSIVE DISORDER NEC 11/10/2015 PA HILAH S CORPORATE EXECUTIVE CHEF Ot 530.81 ESOPHAGEAL REFLUX 11/10/2015 PA TED S CORPORATE EXECUTIVE CHEF Ot 536.3 GASTROPARESIS 11/10/2015 PA, CRISTOAH S CORPORATE EXECUTIVE CHEF Ot 607.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, ORGANIC ORIGN 11/10/2015 PA HILAH S CORPORATE EXECUTIVE CHEF Ot V58.69 OTH MED,LT,CURRENT USE 11/10/2015 PA TED S CORPORATE EXECUTIVE CHEF Ot 154.1 MALIGNANT NEOPL RECTUM 11/10/2015 PA TED S CORPORATE EXECUTIVE CHEF Ot 280.9 IRON DEFIC ANEMIA NOS 11/10/2015 PA HILAH S CORPORATE EXECUTIVE CHEF Ot 311 DEPRESSIVE DISORDER NEC 11/10/2015 PA TED S CORPORATE EXECUTIVE CHEF Ot 530.81 ESOPHAGEAL REFLUX 11/10/2015 PA, TED S CORPORATE EXECUTIVE CHEF Ot 536.3 GASTROPARESIS 11/10/2015 PA, TED S CORPORATE EXECUTIVE CHEF Ot 607.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, ORGANIC ORIGN 11/10/2015 THIERNO TED S CORPORATE EXECUTIVE CHEF Ot V58.69 OTH MED,LT,CURRENT USE 11/10/2015 VIRAJ [...] K Ot G89.29 OTHER CHRONIC PAIN 11/12/2015 INZE DO, JOSE ANTONIO K Ot K76.0 FATTY [...] 03/01/2016 SANTOS SOLIS, ADOLPH Jon Ot V72.81 PASQ-[id number] CARDIOVASCULAR 03/01/2016 SANTOS SOLIS, ADOLPH Jon Ot [...] PERSONAL HISTORY OF ANTINEOPLASTIC CHEMO 03/01/2016 ROXI ACLI MD Ot 154.1 MALIGNANT NEOPL RECTUM 03/01/2016 [...] NOS 03/03/2016 ADOLPH GRAHAM MD Ot V72.81 [id number] CARDIOVASCULAR 03/03/2016 ADOLPH GRAHAM MD Ot V74.8 SCREEN-BACTERIAL DIS NEC 03/03/2016 LINDA BENTLEY CORPORATE EXECUTIVE CHEF Ot 591 HYDRONEPHROSIS 03/03/2016 LINDA BENTLEY CORPORATE EXECUTIVE CHEF Ot 789.05 ABDOMINAL PAIN, PERIUMBILIC 03/03/2016 CLAUDE [...] 280.9 IRON DEFIC ANEMIA NOS 03/10/2016 ROXI ACLI MD Ot 311 DEPRESSIVE DISORDER NEC 03/10/2016 [...] V74.8 SCREEN-BACTERIAL DIS NEC 03/15/2016 TED PA CORPORATE EXECUTIVE CHEF Ot 154.1 MALIGNANT NEOPL RECTUM 03/15/2016 TED PA CORPORATE EXECUTIVE CHEF Ot 280.9 IRON DEFIC ANEMIA NOS 03/15/2016 TED PA CORPORATE EXECUTIVE CHEF Ot 311 DEPRESSIVE DISORDER NEC 03/15/2016 TED PA CORPORATE EXECUTIVE CHEF Ot 530.81 ESOPHAGEAL REFLUX 03/15/2016 TED PA CORPORATE EXECUTIVE CHEF Ot 536.3 GASTROPARESIS 03/15/2016 TED PA CORPORATE EXECUTIVE CHEF Ot 607.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, ORGANIC ORIGN 03/15/2016 TED PAP Ot V58.69 OTH MED,LT,CURRENT USE 03/15/2016 TED PA CORPORATE EXECUTIVE CHEF Ot 154.1 MALIGNANT NEOPL RECTUM 03/15/2016 TED PA CORPORATE EXECUTIVE CHEF Ot 280.9 IRON DEFIC ANEMIA NOS 03/15/2016 CRISTO PAMIGUEL A Juan CORPORATE EXECUTIVE CHEF Ot 311 DEPRESSIVE DISORDER NEC 03/15/2016 CRISTO PAMIGUEL A Juan CORPORATE EXECUTIVE CHEF Ot 530.81 ESOPHAGEAL REFLUX 03/15/2016 THIERNO TED Juan CORPORATE EXECUTIVE CHEF Ot 536.3 GASTROPARESIS 03/15/2016 THIERNO TED Juan CORPORATE EXECUTIVE CHEF Ot 607.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, ORGANIC ORIGN 03/15/2016 PATED Juan CORPORATE EXECUTIVE CHEF Ot V58.69 OTH MED,LT,CURRENT USE 03/15/2016 VIRAJ [...] SOLIS, ROXI Ana Rosa Ot Z79.899 OTHER [employer] 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 [employer] SALES 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 THERAPY 03/28/2016 VIRAJ SOLIS, ROXI [...] V74.8 SCREEN-BACTERIAL DIS NEC 04/14/2016 TED PA CORPORATE EXECUTIVE CHEF Ot 154.1 MALIGNANT NEOPL RECTUM 04/14/2016 CRISTO PAMIGUEL A Drake CORPORATE EXECUTIVE CHEF Ot 280.9 IRON DEFIC ANEMIA NOS 04/14/2016 TED PA CORPORATE EXECUTIVE CHEF Ot 311 DEPRESSIVE DISORDER NEC 04/14/2016 TED PA CORPORATE EXECUTIVE CHEF Ot 530.81 ESOPHAGEAL REFLUX 04/14/2016 TED PA CORPORATE EXECUTIVE CHEF Ot 536.3 GASTROPARESIS 04/14/2016 TED PA CORPORATE EXECUTIVE CHEF Ot 607.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, ORGANIC ORIGN 04/14/2016 TED PA CORPORATE EXECUTIVE CHEF Ot V58.69 OTH MED,LT,CURRENT USE 04/14/2016 TED PA CORPORATE EXECUTIVE CHEF Ot 154.1 MALIGNANT NEOPL RECTUM 04/14/2016 TED PA CORPORATE EXECUTIVE CHEF Ot 280.9 IRON DEFIC ANEMIA NOS 04/14/2016 PATED Juan CORPORATE EXECUTIVE CHEF Ot 311 DEPRESSIVE DISORDER NEC 04/14/2016 TED PA CORPORATE EXECUTIVE CHEF Ot 530.81 ESOPHAGEAL REFLUX 04/14/2016 TED PA CORPORATE EXECUTIVE CHEF Ot 536.3 GASTROPARESIS 04/14/2016 PATED Juan CORPORATE EXECUTIVE CHEF Ot 607.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, ORGANIC ORIGN 04/14/2016 TED PA CORPORATE EXECUTIVE CHEF Ot V58.69 OTH MED,LT,CURRENT USE 04/14/2016 ROXI [...] 04/14/2016 ROXI CALI MD Ot Z79.899 OTHER SENIOR CARE (CURRENT) DRUG THERAPY 04/14/2016 ROXI CALI MD [...] 04/18/2016 ROXI CALI MD, Ot Z79.899 OTHER SENIOR CARE (CURRENT) DRUG THERAPY 04/18/2016 ROXI CALI MD [...] 05/17/2016 ROXI CALI MD, Ot Z79.899 OTHER SENIOR CARE (CURRENT) DRUG THERAPY 05/17/2016 ROXI CALI MD, [...] 06/07/2016 ROXI CALI MD, Ot Z79.899 OTHER [employer]AK[employer] AND [employer] SALES 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 THERAPY 06/07/2016 ROXI CALI MD [...] 06/16/2016 ROXI CALI MD, Ot Z79.899 OTHER SENIOR CARE (CURRENT) DRUG THERAPY 06/16/2016 VIRAJ SOLIS, ROXI [...] SCREEN-BACTERIAL DIS NEC 08/13/2016 TED PA S CORPORATE EXECUTIVE CHEF Ot 154.1 MALIGNANT NEOPL RECTUM 08/13/2016 TED PA S CORPORATE EXECUTIVE CHEF Ot 280.9 IRON DEFIC ANEMIA NOS 08/13/2016 TED PA S CORPORATE EXECUTIVE CHEF Ot 311 DEPRESSIVE DISORDER NEC 08/13/2016 TED PA S CORPORATE EXECUTIVE CHEF Ot 530.81 ESOPHAGEAL REFLUX 08/13/2016 TED PA S CORPORATE EXECUTIVE CHEF Ot 536.3 GASTROPARESIS 08/13/2016 TED PA S CORPORATE EXECUTIVE CHEF Ot 607.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, ORGANIC ORIGN 08/13/2016 TED PA S CORPORATE EXECUTIVE CHEF Ot V58.69 OTH MED,LT,CURRENT USE 08/13/2016 TED PA S CORPORATE EXECUTIVE CHEF Ot 154.1 MALIGNANT NEOPL RECTUM 08/13/2016 TED PA S CORPORATE EXECUTIVE CHEF Ot 280.9 IRON DEFIC ANEMIA NOS 08/13/2016 CRISTO PAAH S CORPORATE EXECUTIVE CHEF Ot 311 DEPRESSIVE DISORDER NEC 08/13/2016 TED PA S CORPORATE EXECUTIVE CHEF Ot 530.81 ESOPHAGEAL REFLUX 08/13/2016 PATED Juan S CORPORATE EXECUTIVE CHEF Ot 536.3 GASTROPARESIS 08/13/2016 PATED Juan S CORPORATE EXECUTIVE CHEF Ot 607.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, ORGANIC ORIGN 08/13/2016 TED PA S CORPORATE EXECUTIVE CHEF Ot V58.69 OTH MED,LT,CURRENT USE 08/13/2016 VIRAJ [...] 08/13/2016 ROXI CALI MD Ot Z79.899 OTHER SENIOR CARE (CURRENT) DRUG THERAPY 08/13/2016 ROXI CALI MD [...] 08/14/2016 ROXI CALI MD Ot Z79.899 OTHER [employer] AND [employer] SALES 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 THERAPY 08/14/2016 ROXI CALI MD Ot Z92.3 PERSONAL HISTORY OF IRRADIATION 08/14/2016 NATY SOLIS, SHAY Lester Ot E87.6 HYPOKALEMIA 08/14/2016 NATY SOLIS, SHAY T Ot I10 ESSENTIAL (PRIMARY) HYPERTENSION 08/14/2016 NATY SOLIS, SHAY Lester Ot N39.0 URINARY TRACT INFECTION, SITE NOT SPECIF 08/14/2016 NATY SOLIS, SAHY Lester Ot R10.30 LOWER ABDOMINAL PAIN, UNSPECIFIED 08/14/2016 SHAY ALFONSO MD Ot R11.2 NAUSEA WITH VOMITING, UNSPECIFIED 08/14/2016 SHAY ALFONSO MD Ot R19.7 DIARRHEA, UNSPECIFIED 08/14/2016 SHAY ALFONSO MD Ot Z79.899 OTHER [employer] AND [employer] SALES 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 THERAPY 08/14/2016 SHAY ALFONSO MD [...] 08/15/2016 SHAY ALFONSO MD Ot Z79.899 OTHER [employer]AK[employer] AND [employer] SALES 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 THERAPY 08/15/2016 SHAY ALFONSO MD [...] SHAY ALFONSO MD T Ot Z79.899 OTHER BAK[employer] AND [employer] SALES 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 THERAPY 08/16/2016 SHAY ALFONSO MD [...] 08/17/2016 ROXI CALI MD Ot Z79.899 OTHER SENIOR CARE (CURRENT) DRUG THERAPY 08/17/2016 ROXI CALI MD Ot Z92.3 PERSONAL HISTORY OF IRRADIATION 08/17/2016 SHAY ALFNOSO MD Ot E87.6 HYPOKALEMIA 08/17/2016 SHAY ALFONSO MD Ot I10 ESSENTIAL (PRIMARY) HYPERTENSION 08/17/2016 SHAY ALFONSO MD Ot N39.0 URINARY TRACT INFECTION, SITE NOT SPECIF 08/17/2016 SHAY ALFONSO MD Ot R10.30 LOWER ABDOMINAL PAIN, UNSPECIFIED 08/17/2016 SHAY ALFONSO MD Ot R11.2 NAUSEA WITH VOMITING, UNSPECIFIED 08/17/2016 SHAY ALFONSO MD Ot R19.7 DIARRHEA, UNSPECIFIED 08/17/2016 SHAY ALFONSO MD Ot Z79.899 OTHER [employer]AK[employer] AND [employer] SALES 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 THERAPY 08/17/2016 SHAY ALFONSO MD [...] NATY SOLIS, SHAY Lester Ot Z79.899 OTHER BAK[employer] AND [employer] SALES 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 THERAPY 08/19/2016 NATY SOLIS, SHAY [...] 09/09/2016 ROXI CALI MD Ot Z79.899 OTHER SENIOR CARE (CURRENT) DRUG THERAPY 09/09/2016 ROXI CALI MD [...] 09/13/2016 ROXI CALI MD Ot Z79.899 OTHER SENIOR CARE (CURRENT) DRUG THERAPY 09/13/2016 ROXI CALI MD [...] SCREEN-BACTERIAL DIS NEC 09/21/2016 TED PA S CORPORATE EXECUTIVE CHEF Ot 154.1 MALIGNANT NEOPL RECTUM 09/21/2016 PATED Juan S CORPORATE EXECUTIVE CHEF Ot 280.9 IRON DEFIC ANEMIA NOS 09/21/2016 TED PA S CORPORATE EXECUTIVE CHEF Ot 311 DEPRESSIVE DISORDER NEC 09/21/2016 APTED Juan S CORPORATE EXECUTIVE CHEF Ot 530.81 ESOPHAGEAL REFLUX 09/21/2016 TED PA S CORPORATE EXECUTIVE CHEF Ot 536.3 GASTROPARESIS 09/21/2016 TED PA S CORPORATE EXECUTIVE CHEF Ot 607.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, ORGANIC ORIGN 09/21/2016 PATED Juan S CORPORATE EXECUTIVE CHEF Ot V58.69 OTH MED,LT,CURRENT USE 09/21/2016 TED PA S CORPORATE EXECUTIVE CHEF Ot 154.1 MALIGNANT NEOPL RECTUM 09/21/2016 PATED Juan S CORPORATE EXECUTIVE CHEF Ot 280.9 IRON DEFIC ANEMIA NOS 09/21/2016 PATED Juan S CORPORATE EXECUTIVE CHEF Ot 311 DEPRESSIVE DISORDER NEC 09/21/2016 TED PA S CORPORATE EXECUTIVE CHEF Ot 530.81 ESOPHAGEAL REFLUX 09/21/2016 PATED Juan S CORPORATE EXECUTIVE CHEF Ot 536.3 GASTROPARESIS 09/21/2016 PATED Juan S CORPORATE EXECUTIVE CHEF Ot 607.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, ORGANIC ORIGN 09/21/2016 TED PA S CORPORATE EXECUTIVE CHEF Ot V58.69 OTH MED,LT,CURRENT USE 09/21/2016 VIRAJ [...] VIRAJ SOLIS, ROXI Oseguera Ot Z79.899 OTHER SENIOR CARE (CURRENT) DRUG THERAPY 09/21/2016 VIRAJ SOLIS, ROXI [...] SCREEN-BACTERIAL DIS NEC 09/21/2016 TED PA S CORPORATE EXECUTIVE CHEF Ot 154.1 MALIGNANT NEOPL RECTUM 09/21/2016 TED PA S CORPORATE EXECUTIVE CHEF Ot 280.9 IRON DEFIC ANEMIA NOS 09/21/2016 TED PA S CORPORATE EXECUTIVE CHEF Ot 311 DEPRESSIVE DISORDER NEC 09/21/2016 TED PA S CORPORATE EXECUTIVE CHEF Ot 530.81 ESOPHAGEAL REFLUX 09/21/2016 TED PA S CORPORATE EXECUTIVE CHEF Ot 536.3 GASTROPARESIS 09/21/2016 TED PA S CORPORATE EXECUTIVE CHEF Ot 607.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, ORGANIC ORIGN 09/21/2016 TED PA S CORPORATE EXECUTIVE CHEF Ot V58.69 OTH MED,LT,CURRENT USE 09/21/2016 TED PA S CORPORATE EXECUTIVE CHEF Ot 154.1 MALIGNANT NEOPL RECTUM 09/21/2016 TED PA S CORPORATE EXECUTIVE CHEF Ot 280.9 IRON DEFIC ANEMIA NOS 09/21/2016 TED PA S CORPORATE EXECUTIVE CHEF Ot 311 DEPRESSIVE DISORDER NEC 09/21/2016 TED PA S CORPORATE EXECUTIVE CHEF Ot 530.81 ESOPHAGEAL REFLUX 09/21/2016 TED PA S CORPORATE EXECUTIVE CHEF Ot 536.3 GASTROPARESIS 09/21/2016 PATED Juan S CORPORATE EXECUTIVE CHEF Ot 607.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, ORGANIC ORIGN 09/21/2016 TED PA S CORPORATE EXECUTIVE CHEF Ot V58.69 OTH MED,LT,CURRENT USE 09/21/2016 ROXI CALI MD Ot 154.1 MALIGNANT NEOPL RECTUM 09/21/2016 ROXI CALI MD Ot 154.1 MALIGNANT NEOPL RECTUM 09/21/2016 VIRAJ SOLIS, ROXI Oseguera Ot C20 MALIGNANT NEOPLASM OF RECTUM 09/21/2016 ROXI CALI MD Ot C20 MALIGNANT NEOPLASM OF RECTUM 09/21/2016 ROXI CALI MD, Ot D50.9 IRON DEFICIENCY ANEMIA, UNSPECIFIED 09/21/2016 ROIX CALI MD, Ot F33.9 MAJOR DEPRESSIVE DISORDER, RECURRENT, UN 09/21/2016 ROXI CALI MD, Ot G47.00 INSOMNIA, UNSPECIFIED 09/21/2016 ROXI CALI MD, Ot N39.490 OVERFLOW INCONTINENCE 09/21/2016 ROXI CALI MD Ot Z79.899 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 [employer] SALES 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 THERAPY 09/21/2016 ROXI CALI MD, [...] VIRAJ SOLIS, ROXI Oseguera Ot Z79.899 OTHER SENIOR CARE (CURRENT) DRUG THERAPY 10/06/2016 VIRAJ SOLIS, ROXI [...] SCREEN-BACTERIAL DIS NEC 10/06/2016 TED PA S CORPORATE EXECUTIVE CHEF Ot 154.1 MALIGNANT NEOPL RECTUM 10/06/2016 TED PA S CORPORATE EXECUTIVE CHEF Ot 280.9 IRON DEFIC ANEMIA NOS 10/06/2016 CRISTO PAAH S CORPORATE EXECUTIVE CHEF Ot 311 DEPRESSIVE DISORDER NEC 10/06/2016 CRISTO PAAH S CORPORATE EXECUTIVE CHEF Ot 530.81 ESOPHAGEAL REFLUX 10/06/2016 PATED S CORPORATE EXECUTIVE CHEF Ot 536.3 GASTROPARESIS 10/06/2016 PACRISTOAH S CORPORATE EXECUTIVE CHEF Ot 607.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, ORGANIC ORIGN 10/06/2016 CRISTO PAAH S CORPORATE EXECUTIVE CHEF Ot V58.69 OTH MED,LT,CURRENT USE 10/06/2016 PACRISTOAH S CORPORATE EXECUTIVE CHEF Ot 154.1 MALIGNANT NEOPL RECTUM 10/06/2016 CRISTO PAAH S CORPORATE EXECUTIVE CHEF Ot 280.9 IRON DEFIC ANEMIA NOS 10/06/2016 THIERNO HILAH S CORPORATE EXECUTIVE CHEF Ot 311 DEPRESSIVE DISORDER NEC 10/06/2016 PA HILAH S CORPORATE EXECUTIVE CHEF Ot 530.81 ESOPHAGEAL REFLUX 10/06/2016 PA HILAH S CORPORATE EXECUTIVE CHEF Ot 536.3 GASTROPARESIS 10/06/2016 PACRISTOAH S CORPORATE EXECUTIVE CHEF Ot 607.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, ORGANIC ORIGN 10/06/2016 CRISTO PAAH S CORPORATE EXECUTIVE CHEF Ot V58.69 OTH MED,LT,CURRENT USE 10/06/2016 ROXI [...] 10/06/2016 ROXI CALI MD Ot Z79.899 OTHER SENIOR CARE (CURRENT) DRUG THERAPY 10/06/2016 ROXI CALI MD [...] DO JOSE ANTONIO K Ot Z79.899 OTHER [employer] SALES 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 THERAPY 10/07/2016 INEZ DO JOSE [...] DO JOSE ANTONIO K Ot Z79.899 OTHER SENIOR CARE (CURRENT) DRUG THERAPY 10/07/2016 INEZ DICKSON JOSE [...] 10/12/2016 ROXI CALI MD Ot Z79.899 OTHER SENIOR CARE (CURRENT) DRUG THERAPY 10/12/2016 ROXI CALI MD [...] MALIG NEOPLM OF RECTUM , RECT 10/23/2016 HSAY ALFONSO MD Ot Z92.21 PERSONAL HISTORY OF [...] V74.8 SCREEN-BACTERIAL DIS NEC 10/24/2016 TED PA CORPORATE EXECUTIVE CHEF Ot 154.1 MALIGNANT NEOPL RECTUM 10/24/2016 TED PA CORPORATE EXECUTIVE CHEF Ot 280.9 IRON DEFIC ANEMIA NOS 10/24/2016 PATED Juan CORPORATE EXECUTIVE CHEF Ot 311 DEPRESSIVE DISORDER NEC 10/24/2016 PATED Juan CORPORATE EXECUTIVE CHEF Ot 530.81 ESOPHAGEAL REFLUX 10/24/2016 TED PA CORPORATE EXECUTIVE CHEF Ot 536.3 GASTROPARESIS 10/24/2016 TED PA CORPORATE EXECUTIVE CHEF Ot 607.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, ORGANIC ORIGN 10/24/2016 TED PA CORPORATE EXECUTIVE CHEF Ot V58.69 OTH MED,LT,CURRENT USE 10/24/2016 TED PA CORPORATE EXECUTIVE CHEF Ot 154.1 MALIGNANT NEOPL RECTUM 10/24/2016 TED PA CORPORATE EXECUTIVE CHEF Ot 280.9 IRON DEFIC ANEMIA NOS 10/24/2016 TED PA CORPORATE EXECUTIVE CHEF Ot 311 DEPRESSIVE DISORDER NEC 10/24/2016 TED PA CORPORATE EXECUTIVE CHEF Ot 530.81 ESOPHAGEAL REFLUX 10/24/2016 TED PA CORPORATE EXECUTIVE CHEF Ot 536.3 GASTROPARESIS 10/24/2016 TED PA CORPORATE EXECUTIVE CHEF Ot 607.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, ORGANIC ORIGN 10/24/2016 TED PA CORPORATE EXECUTIVE CHEF Ot V58.69 OTH MED,LT,CURRENT USE 10/24/2016 ROXI [...] 10/24/2016 ROXI CALI MD, Ot Z79.899 OTHER SENIOR CARE (CURRENT) DRUG THERAPY 10/24/2016 ROXI CALI MD [...] 10/24/2016 ROXI CALI MD, Ot Z79.899 OTHER SENIOR CARE (CURRENT) DRUG THERAPY 10/24/2016 ROXI CALI MD, Ot Z92.3 PERSONAL HISTORY OF IRRADIATION 10/24/2016 ROIX CALI MD, Ot C20 MALIGNANT NEOPLASM OF RECTUM 10/24/2016 ROXI CALI MD, Ot C20 MALIGNANT NEOPLASM OF RECTUM 10/24/2016 ROXI CALI MD, Ot D50.9 IRON DEFICIENCY ANEMIA, UNSPECIFIED 10/24/2016 ROXI CALI MD, Ot F33.9 MAJOR DEPRESSIVE DISORDER, RECURRENT, UN 10/24/2016 ROXI CALI MD, Ot G47.00 INSOMNIA, UNSPECIFIED 10/24/2016 ROXI CALI MD, Ot N39.490 OVERFLOW INCONTINENCE 10/24/2016 ROXI CALI MD, Ot Z79.899 OTHER SENIOR CARE (CURRENT) DRUG THERAPY 10/24/2016 ROXI CALI MD, [...] 12/09/2016 ROXI CALI MD, Ot Z79.899 OTHER SENIOR CARE (CURRENT) DRUG THERAPY 12/09/2016 ROXI CALI MD, [...] 12/11/2016 ROXI CALI MD, Ot Z79.899 OTHER SENIOR CARE (CURRENT) DRUG THERAPY 12/11/2016 ROXI CALI MD [...] 01/01/2017 ROXI CALI MD, Ot Z79.899 OTHER SENIOR CARE (CURRENT) DRUG THERAPY 01/01/2017 ROXI CALI MD, Ot Z92.3 PERSONAL HISTORY OF IRRADIATION Procedures Code Description [place] [address] ROUTINE VENIPUNCTURE 08/10/2012 77915 HEMOCCULT 2012 37817 HEMOCCULT 2012 84882 CBC 08/10/2012 58095 CMP 08/10/2012 73464 LIPID PANEL 08/104950 GFR CALC (RESULT ONLY) 08/10/2012 76858 HEMOGLOBIN (IN-HOUSE) 08/27/2012 45.42 08/29/2012 48.24 08/29/2012 [facility] 10/04/2012 46.01 12/06/2012 47.19 12/06/2012 48.63 12/06/2012 86.07 12/06/2012 57.32 12/13/2012 07525 UA W/ CULTURE IF INDICATED 01/01/2013 16350 URINE DRUG SCREEN (IN-HOUSE) 01/01/[address] ABDOMEN & PELVIS W/ & W/O CONTRAST 01/02/2013 91613 ROUTINE VENIPUNCTURE 01/02/2013 21848 CULTURE URINE 97687 CMP 01/03/2013 1651228 GFR CALC (RESULT ONLY) 01/03/2013 51807 CBC 01/03/2013 45.92 SM BOWEL-RECT STUMP ANAS [...] culture - 02/28/16 02:15 Bacterial urine culture [id number] NRG COLONY COUNT 10,000/ML - 100,000/ML NRG [...] susceptibility test by minimum inhibitory concentration - [facility] Bacterial susceptibility panel - 02/28/16 02:15 Gentamicin [...] susceptibility test by minimum inhibitory concentration 2 [facility] Bacterial urine culture - 05/30/16 13:50 Bacterial urine culture [id number] NRG COLONY COUNT >100,000/ML NR FTX;REPORTABLE SEE COMMENT NRG FREE TEXT ENTRY 2 PLUS MIXED GRAM POSITIVES NR FREE TEXT ENTRY 3 <10,000/ML [facility] Bacterial susceptibility panel - 05/30/16 13:50 Gentamicin [...] susceptibility test by minimum inhibitory concentration - [facility] Bacterial susceptibility panel - 05/30/16 13:50 Gentamicin [...] susceptibility test by minimum inhibitory concentration - [facility] Complete blood count (CBC) with automated white [...] culture - 08/14/16 01:13 Bacterial urine culture [id number] NRG COLONY COUNT >100,000/ML NRG FTX;REPORTABLE SENSITIVITY [...] susceptibility test by minimum inhibitory concentration - [facility] Bacterial susceptibility panel - 08/14/16 01:13 Gentamicin [...] susceptibility test by minimum inhibitory concentration - [facility] Bacterial susceptibility panel - 01/29/17 01:13 Gentamicin [...] INFLUENZA A AND B ANTIGENS BY IA [facility] Blood lactic acid measurement (moles/volume) - 09/21/16 [...] OF GROWTH Isolated NRG Bacterial blood culture [id number] NRG Capillary blood glucose measurement by glucometer [...] OF GROWTH Isolated NRG Bacterial blood culture [id number] NRG FREE TEXT ENTRY 2 NOT STREPTOCOCCUS [...] culture - 09/21/16 10:15 Bacterial urine culture [id number] NRG COLONY COUNT 10,000/ML - 100,000/ML NRG [...] susceptibility test by minimum inhibitory concentration - [facility] Bacterial susceptibility panel - 09/21/16 10:15 Gentamicin [...] susceptibility test by minimum inhibitory concentration - [facility] Complete blood count (CBC) with automated white [...] culture - 10/21/16 00:27 Bacterial urine culture [id number] NRG COLONY COUNT 10,000/ML - 100,000/ML NRG [...] culture - 01/01/17 04:12 Bacterial urine culture [id number] NRG COLONY COUNT 10,000/ML - 100,000/ML NRG FTX;REPORTABLE SENSITIVITY REPORTED 01/02 19:05 NRG FREE TEXT ENTRY 3 MIXED GRAM 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 Type Provider Facility Loc./Unit Complaint [id number] 10/29/2014 09:34:00 10/29/2014 23: 59:59 CLS Outpatient JAINNE HERNDON MD [id number] 10/17/2014 10:25:00 10/17/2014 23: 59:59 CLS Outpatient LINDA BENTLEY APRN [id number] 09/29/2014 13:37:00 09/29/2014 23: 59:59 CLS Outpatient JANINE HERNDON MD [id number] 08/01/2014 14:42:00 08/01/2014 23: 59:59 CLS Outpatient LINDA BENTLEY APRN [id number] 06/27/2014 13:22:00 06/27/2014 23: 59:59 CLS Outpatient LINDA BENTLEY APRN [id number] 05/21/2014 14:00:00 05/21/2014 23: 59:59 CLS Outpatient LINDA BENTLEY APRN [id number] 05/07/2014 10:40:00 05/07/2014 23: 59:59 [facility] Outpatient LINDA BENTLEY APRN [id number] 02/25/2014 15:37:00 02/25/2014 23: 59:59 [facility] Outpatient LINDA BENTLEY APRN [id number] 02/19/2014 00:00:00 02/19/2014 23: 59:59 [facility] Outpatient LINDA BENTLEY APRN [id number] 01/29/2014 16:00:00 01/29/2014 23: 59:59 [facility] Outpatient LINDA BENTLEY APRN [id number] 12/11/2013 11:57:00 12/11/2013 23: 59:59 [facility] Outpatient LINDA BENTLEY APRN [id number] 10/30/2013 14:47:00 10/30/2013 23: 59:59 [facility] Outpatient LINDA BENTLEY APRN [id number] 09/03/2013 07:55:00 09/03/2013 23: 59:59 CLS Outpatient GURMEET HERNDON MDHANY Zeinab [id number] 09/02/2013 09:25:00 09/02/2013 23: 59:59 CLS Outpatient LINDA BENTLEY APRN [id number] 05/27/2013 12:30:00 05/27/2013 23: 59:59 CLS Outpatient ADOLPH GRAHAM MD [id number] 04/10/2013 11:45:00 04/10/2013 23: 59:59 CLS Outpatient LINDA BENTLEY APRN [id number] 04/01/2013 15:10:00 04/01/2013 23: 59:59 CLS Outpatient HONG DICKSON NIKHIL Ana Rosa [id number] 03/22/2013 00:00:00 03/22/2013 23: 59:59 CLS Outpatient RIVER ARCE MD [id number] 10/17/2012 16:05:00 10/17/2012 23: 59:59 CLS Outpatient LINDA BENTLEY APRN [id number] 10/03/2012 17:55:00 10/03/2012 23: 59:59 CLS Outpatient LINDA BENTLEY APRN [id number] 09/19/2012 18:39:00 09/19/2012 23: 59:59 CLS Outpatient ADOLPH GRAHAM MD [id number] 08/27/2012 12:52:00 08/27/2012 23: 59:59 CLS Outpatient [id number] 08/10/2012 11:19:00 08/10/2012 23: 59:59 CLS Outpatient LINDA BENTLEY APRN [id number] 08/03/2012 15:56:00 08/03/2012 23: 59:59 CLS Outpatient [id number] 03/11/2013 14:50:00 Document Registration [id number] 01/22/2013 15:25:00 Document Registration [id number] 01/07/2013 15:54:00 Document Registration [id number] 01/02/2013 16:51:00 Document Registration [id number] 01/01/2013 15:26:00 Document Registration
== END 2017-01-03 15:45 | disposition home or self-care (01) | DRG 389 ==
LOC: EDUNIT# 03:50 → ER 03:53 → 4TH 06:05
PROVIDERS: ADMIT Family Medicine; ATTEND Family Medicine
DX: K56.60 Unspecified intestinal obstruction (principal); K56.7 Ileus, unspecified; N99.521 Infection of incontinent external stoma of urinary tract; N39.0 Urinary tract infection, site not specified; K59.03 Drug induced constipation; N17.9 Acute kidney failure, unspecified; E86.0 Dehydration; E87.2 Acidosis; E87.6 Hypokalemia; I10 Essential (primary) hypertension; F32.9 Major depressive disorder, single episode, unspecified; R15.9 Full incontinence of feces; R63.0 Anorexia; K21.9 Gastro-esophageal reflux disease without esophagitis; F41.9 Anxiety disorder, unspecified; K44.9 Diaphragmatic hernia without obstruction or gangrene; T40.2X5A Adverse effect of other opioids, initial encounter; Z85.51 Personal history of malignant neoplasm of bladder; Z85.048 Personal history of other malignant neoplasm of rectum, rectosigmoid junction, and anus; Z92.21 Personal history of antineoplastic chemotherapy; Z92.3 Personal history of irradiation
CPT/HCPCS: 36415; 74022; 74176; 80053; 80306; 81000; 82150; 83605; 83690; 83735; 84443; 84484; 85007; 85025; 85027; 85610; 85730; 87088; 87186; 93005; 93041

== ENCOUNTER 2017-01-12 04:43 | Emergency (ER) | payer MEDICARE, MEDICAID ==
[~2017-01-12] VITALS: Ht 170.2 cm; Wt 83.9 kg
[~2017-01-12 04:43] MED LIST changes: +DIAZ10TA PO; +TEMA30CA PO
[2017-01-12] MEDS ORDERED: fentaNYL INJECTION 100 MCG/2 ML AMP IVP ONE ×2 (05:15→07:45)
[2017-01-12] MEDS ORDERED: ONDANSETRON 4 MG/2 ML (SDV) Z0FRAN IVP ONE (05:15)
[2017-01-12 05:35] LABS: BASOPHILS % (AUTO) 0 % (0-10); EOSINOPHILS # (AUTO) 0.1 10^3/uL (0.0-0.3); EOSINOPHILS % (AUTO) 1 % (0-10); LYMPHOCYTES # (AUTO) 1.5 X 10^3 (1.0-4.0); LYMPHOCYTES % (AUTO) 14 % (12-44); MEAN CORPUSCULAR HEMOGLOBIN 28 PG (25-34); MEAN CORPUSCULAR HGB CONC 34 G/DL (32-36); MEAN CORPUSCULAR VOLUME 84 FL (80-99); MEAN PLATELET VOLUME 10.5 FL (7.4-10.4); MONOCYTES # (AUTO) 0.6 X 10^3 (0.0-1.0); MONOCYTES % (AUTO) 6 % (0-12); NEUTROPHILS # (AUTO) 8.5 X 10^3 (1.8-7.8); NEUTROPHILS % (AUTO) 79 % (42-75); PLATELET COUNT 225 10^3/uL (130-400); RED BLOOD COUNT 5.59 10^6/uL (4.35-5.85); RED CELL DISTRIBUTION WIDTH 13.6 % (10.0-14.5); WHITE BLOOD COUNT 10.7 10^3/uL (4.3-11.0)
[2017-01-12 05:42] LABS: BILIRUBIN,URINE NEGATIVE (NEGATIVE); KETONES,URINE NEGATIVE (NEGATIVE); LEUKOCYTE ESTERASE ,URINE 2+ (NEGATIVE); NITRITE,URINE POSITIVE (NEGATIVE); PH,URINE 7 (5-9); PROTEIN,URINE 2+ (NEGATIVE); UROBILINOGEN,URINE NORMAL (NORMAL)
[2017-01-12 05:53] LABS: ALANINE AMINOTRANSFERASE 53 U/L (0-55); ALBUMIN 4.2 GM/DL (3.2-4.5); ANION GAP 15 MMOL/L (5-14); ASPARTATE AMINO TRANSFERASE 46 U/L (5-34); BILIRUBIN,TOTAL 0.5 MG/DL (0.1-1.0); BLOOD UREA NITROGEN 14 MG/DL (7-18); BUN/CREATININE RATIO 14; CALCIUM 9.2 MG/DL (8.5-10.1); CARBON DIOXIDE 16 MMOL/L (21-32); CHLORIDE 109 MMOL/L (98-107); CREATININE SERUM 0.97 MG/DL (0.60-1.30); GFR ESTIMATED > 60; GLUCOSE 121 MG/DL (70-105); LIPASE 26 U/L (8-78); POTASSIUM 3.3 MMOL/L (3.6-5.0); SODIUM 140 MMOL/L (135-145); TOTAL PROTEIN 7.4 GM/DL (6.4-8.2)
--- NOTE | 2017-01-12 05:56 | ED Abdominal Pain ---
General Chief Complaint: Abdominal/GI Problems Stated Complaint: CONSTIPATED Nursing Triage Note: C/O CONSTIPATION, REPORTS LAST BM 01/11/17 Sepsis Screen: No Definite Risk Source of Information: Patient, Old Records Exam Limitations: No Limitations History of Present Illness Time Seen By Provider: 05:06 Initial Comments Patient presents to the emergency room with complaints of significant lower abdominal pain and inability to produce a bowel movement for the past 24 hours. He has not been able to produce flatus either. He has experienced bowel obstruction and constipation in the past. He takes laxatives every other day. He was recently admitted on January 01 for small bowel obstruction. He is trying to be more proactive with coming to the emergency room early this time. No fever. No vomiting. Allergies and Home Medications Allergies Coded Allergies: morphine (Verified Allergy, Intermediate, 01/01/17) codeine (Verified Adverse Reaction, Unknown, NAUSEA, 01/01/17) Home Medications Ciprofloxacin HCl 500 Mg Tablet, 500 MG PO BID, #14 Prescribed by: SHAY BILLINGS on 01/12/17 0726 Diazepam 10 Mg Tablet, 10 MG PO HS PRN for INSOMNIA/ANXIETY, (Reported) Gabapentin 600 Mg Tablet, 1,200 MG PO TID, (Reported) TAKES 2 (600MG) TABLETS Metoclopramide HCl 5 Mg Tablet, 5 MG PO QID PRN for NAUSEA/VOMITING-1ST LINE, # 10 Prescribed by: SHAY BILLINGS on 01/12/17 0726 Oxycodone HCl 30 Mg Tablet, 30 MG PO BID PRN for SEVERE PAIN, (Reported) Oxycodone HCl/Acetaminophen 1 Each Tablet, 1 TAB PO Q4H, (Reported) Promethazine HCl 12.5 Mg Tablet, 12.5 MG PO Q6H PRN for NAUSEA/VOMITING-2ND LINE , (Reported) Sertraline HCl 100 Mg Tablet, 100 MG PO 1600, (Reported) Temazepam 30 Mg Capsule, 30 MG PO HS, (Reported) Review of Systems Constitutional: no symptoms reported EENTM: No Symptoms Reported Respiratory: No Symptoms Reported Cardiovascular: No Symptoms Reported Gastrointestinal: See HPI Genitourinary: No Symptoms Reported Musculoskeletal: no symptoms reported Skin: no symptoms reported Psychiatric/Neurological: No Symptoms Reported Endocrine: No Symptoms Reported Hematologic/Lymphatic: No Symptoms Reported Past [id number] Hx Patient Social History Alcohol Use: Denies Use Recreational Drug Use: No Smoking Status: Never a Smoker Recent Foreign Travel: No Contact w/Someone Who Travel: No Recent Infectious Disease Expo: No Recent Hopitalizations: No Immunizations Up To Date Tetanus Booster (TDap): Unknown PED Vaccines UTD: No Seasonal Allergies Seasonal Allergies: No Surgeries HX Surgeries: Yes Surgeries: Abdominal, Bladder Surgery (urostomy), Bowel Surgery, Cystectomy, Orthopedic, Rectal, Renal, Vascular Surgery Respiratory Hx Respiratory Disorders: No Cardiovascular Hx Cardiac Disorders: Yes (PT SELF DC'D BP MEDICATIONS) Cardiac Disorders: Hypertension Neurological Hx Neurological Disorders: Yes Neurological Disorders: Headaches /Migraines Reproductive System Hx Reproductive Disorders: Yes (E.D.) Sexually Transmitted Disease: No HIV/AIDS: No Genitourinary Hx Genitourinary Disorders: Yes (Urostomy) Genitourinary Disorders: UTI-Chronic Gastrointestinal Hx Gastrointestinal Disorders: Yes Gastrointestinal Disorders: Gastroesophageal Reflux, Gastrointestinal Bleed, Obstructive Bowel, Chronic Diarrhea, C-Diff, Hiatal Hernia Musculoskeletal Hx Musculoskeletal Disorders: No Endocrine Hx Endocrine Disorders: No HEENT HX ENT Disorders: Yes (WEARS GLASSES) Loss of Vision: Denies Hearing Impairment: Denies Cancer Hx Cancer: Yes Cancer: Bladder, Rectal Psychosocial Hx Psychiatric Problems: Yes Behavioral Health Disorders: Anxiety, Depression Integumentary HX Skin/Integumentary Disorder: No Blood Transfusions Hx Blood Disorders: No Adverse Reaction to a Blood Tr: No Family Medical History Family Medial History: Cataract 03 FATHER, Onset:Unknown Chest pain 03 FATHER, Onset:50's - 60 Family history: Allergy 03 MOTHER Family history: Arthritis 03 FATHER 03 MOTHER Family history: Asthma 03 MOTHER Family history: Cardiovascular disease 03 FATHER Family history: Diabetes mellitus 03 FATHER 03 MOTHER Family history: Hypertension 03 FATHER 03 MOTHER Headache 03 FATHER 03 MOTHER Heart disease 03 FATHER History of - respiratory disease 03 MOTHER Hypercholesterolemia 03 FATHER 03 MOTHER Kidney disease 03 MOTHER Psychotic disorder 03 MOTHER Visual impairment 03 FATHER 03 MOTHER No Family History of: Abdominal aortic aneurysm Elberton's disease Alcoholism Aphasia Cancer Cancer of colon Congenital heart disease Congestive heart failure Cystic fibrosis Dementia Dysphagia Family history: Alzheimer's disease Family history: Breast disease Family history: Coronary thrombosis Family history: Gastrointestinal disease Family history: Glaucoma Family history: Osteoporosis Family history: Thyroid disorder Hearing loss Hereditary disease History of - anemia History of - disorder History of drug abuse Human immunodeficiency virus (HIV) seropositivity Infertile Malignant neoplasm of lung Myocardial infarction Parkinson's disease Prostate cancer Seizure disorder Stroke Tuberculosis Physical Exam Vital Signs VS - Last 72 Hours, by Label 01/12/17 01/12/17 05:09 07:42 Temp 98.4 Pulse 108 59 Resp 16 18 B/P (MAP) 177/104 Pulse Ox 97 98 O2 Delivery Room Air Room Air Capillary Refill : Less Than 3 Seconds General Appearance: WD/WN, mild distress HEENT: PERRL/EOMI, normal ENT inspection, pharynx normal Neck: normal inspection Respiratory: lungs clear, normal breath sounds, no respiratory distress Cardiovascular: regular rate, rhythm, no edema, no murmur Gastrointestinal: soft, distended, tenderness (across the lower abdomen), other (tympanic bowel sounds. Urostomy bag intact with clear yellow urine in the bag.) Extremities: normal inspection, no pedal edema Back: normal inspection, no CVA tenderness, no vertebral tenderness Neurologic/Psychiatric: supervising bailiff II-XII nml as tested, no motor/sensory deficits, alert, normal mood/affect, oriented x 3 Skin: normal color, warm/dry Progress/Results/Core Measures Results/Orders Lab Results Laboratory Tests Test 01/12/17 05:20 Range/Units White Blood Count 10.7 4.3-11.0 10^3/uL Red Blood Count 5.59 4.35-5.85 10^6/uL Hemoglobin 15.9 13.3-17.7 G/DL Hematocrit 47 40-54 % Mean Corpuscular Volume 84 80-99 FL Mean Corpuscular Hemoglobin 28 25-34 PG Mean Corpuscular Hemoglobin Concent 34 32-36 G/DL Red Cell Distribution Width 13.6 10.0-14.5 % Platelet Count 225 130-400 10^3/uL Mean Platelet Volume 10.5 H 7.4-10.4 FL Neutrophils (%) (Auto) 79 H 42-75 % Lymphocytes (%) (Auto) 14 12-44 % Monocytes (%) (Auto) 6 0-12 % Eosinophils (%) (Auto) 1 0-10 % Basophils (%) (Auto) 0 0-10 % Neutrophils # (Auto) 8.5 H 1.8-7.8 X 10^3 Lymphocytes # (Auto) 1.5 1.0-4.0 X 10^3 Monocytes # (Auto) 0.6 0.0-1.0 X 10^3 Eosinophils # (Auto) 0.1 0.0-0.3 10^3/uL Basophils # (Auto) 0.0 0.0-0.1 10^3/uL Urine Color YELLOW Urine Clarity SLIGHTLY CLOUDY Urine pH 7 5-9 Urine Specific [place] 1.010 L 1.016-1.022 Urine Protein 2+ H NEGATIVE Urine Glucose (UA) NEGATIVE NEGATIVE Urine Ketones NEGATIVE NEGATIVE Urine Nitrite POSITIVE H NEGATIVE Urine Bilirubin NEGATIVE NEGATIVE Urine Urobilinogen NORMAL NORMAL MG/DL Urine Leukocyte Esterase 2+ H NEGATIVE Urine RBC (Auto) 2+ H NEGATIVE Urine RBC 5-10 H /HPF Urine WBC 10-25 H /HPF Urine Squamous Epithelial Cells 2-5 /HPF Urine Crystals NONE /LPF Urine Bacteria FEW H /HPF Urine Casts NONE /LPF Urine Mucus LARGE H /LPF Urine Culture Indicated YES Sodium Level 140 135-145 MMOL/L Potassium Level 3.3 L 3.6-5.0 MMOL/L Chloride Level 109 H 98-107 MMOL/L Carbon Dioxide Level 16 L 21-32 MMOL/L Anion Gap 15 H 5-14 MMOL/L Blood Urea Nitrogen 14 7-18 MG/DL Creatinine 0.97 0.60-1.30 MG/DL Estimat Glomerular Filtration Rate > 60 BUN/Creatinine Ratio 14 Glucose Level 121 H 70-105 MG/DL Calcium Level 9.2 8.5-10.1 MG/DL Total Bilirubin 0.5 0.1-1.0 MG/DL Aspartate Amino Transf (AST/SGOT) 46 H 5-34 U/L Alanine Aminotransferase (ALT/SGPT) 53 0-55 U/L Alkaline Phosphatase 81 40-136 U/L Total Protein 7.4 6.4-8.2 GM/DL Albumin 4.2 3.2-4.5 GM/DL Lipase 26 8-78 U/L Micro Results Microbiology 01/12/17 Urine Culture - Preliminary, Resulted My Orders Orders - SHAY ALFONSO MD Cbc With Automated Diff (01/12/17 05:09) Comprehensive Metabolic Panel (01/12/17 05:09) Lipase (01/12/17 05:09) Ua Culture If Indicated (01/12/17 05:09) Saline Lock/Iv-Start (01/12/17 05:09) Ondansetron Injection (Zofran Injectio (01/12/17 05:15) Fentanyl Injection (Sublimaze Injection (01/12/17 05:15) Urine Culture (01/12/17 05:20) Iohexol Injection (Omnipaque 350 Mg/Ml 1 (01/12/17 06:15) Ns (Ivpb) (Sodium Chloride 0.9% Ivpb Bag (01/12/17 06:15) Abdomen, Flat & Upright/Decub (01/12/17 06:12) Ketorolac Injection (Toradol Injection) (01/12/17 07:15) Metoclopramide Injection (Reglan Injecti (01/12/17 07:30) Potassium Chloride (Tablet) (Klor Con Ta (01/12/17 07:30) Fentanyl Injection (Sublimaze Injection (01/12/17 07:45) Medications Given in ED Current Medications Medications Dose Ordered Sig/Kenny Route Start Time Stop Time Status Last Admin Dose Admin Fentanyl Citrate 50 mcg ONCE ONCE IVP 01/12/17 05:15 01/12/17 05:16 DC 01/12/17 05:25 50 MCG Fentanyl Citrate 50 mcg ONCE ONCE IVP 01/12/17 07:45 01/12/17 07:46 DC 01/12/17 07:39 50 MCG Ketorolac Tromethamine 30 mg ONCE ONCE IVP 01/12/17 07:15 01/12/17 07:16 DC 01/12/17 07:16 30 MG Metoclopramide HCl 5 mg ONCE ONCE IVP 01/12/17 07:30 01/12/17 07:31 DC 01/12/17 07:31 5 MG Ondansetron HCl 4 mg ONCE ONCE IVP 01/12/17 05:15 01/12/17 05:16 DC 01/12/17 05:25 4 MG Potassium Chloride 20 meq ONCE ONCE PO 01/12/17 07:30 01/12/17 07:31 DC 01/12/17 07:31 20 MEQ Vital Signs/I&O Vital Sign - Last 12Hours 01/12/17 01/12/17 05:09 07:42 Temp 98.4 Pulse 108 59 Resp 16 18 B/P (MAP) 177/104 Pulse Ox 97 98 O2 Delivery Room Air Room Air Blood Pressure Mean: 128 Progress Note #1: Time: 06:13 Progress Note Patient was given fentanyl for initial pain management. Consideration was given to CT scan for further evaluation based on patient's complaints and exam. However, review of chart notes that he has already had a CT scan within the last month. It was relatively unremarkable except for the acute small bowel obstruction versus ileus. At this time the increased radiation exposure with CT will be avoided and a 2 view abdominal x-ray will be obtained for further evaluation. Labs are relatively unremarkable. Patient is feeling much improved after fentanyl. He also reports he just passed some flatus which also improved his pain. Progress Note #2: Progress Note Patient was reexamined and found to have improved bowel sounds. Abdomen was less tender. X-ray demonstrated a few air-fluid levels in the small bowel. Case was reviewed with Dr. Aguilar. He preferred that patient be dismissed home. Plan is to proceed with a clear liquid diet for the remainder of the day. Antibiotics were prescribed. Cipro was used based on evaluation of prior urine culture. Patient received a dose of Toradol and an additional dose of fentanyl prior to dismissal. A dose of oral potassium was also given before dismissal. Diagnostic Imaging Diagonstic Imaging: Xray Plain Films/CT/US/NM/MRI: abdomen, pelvis Comments X-ray of the abdomen and pelvis viewed by me and report reviewed. See report below: NAME: WAYLON MCNULTY MED REC#: [id number] PT STATUS: DEP ER : 1965 PHYSICIAN: SHAY ALFONSO MD ADMIT DATE: 01/12/17/ER Signed Date of Exam: 01/12/17 ABDOMEN, FLAT & UPRIGHT/DECUB INDICATION: Constipation with history of rectal carcinoma.. TECHNIQUE: Supine and upright view of the abdomen 6:31 AM CORRELATION STUDY: 01/01/2017 FINDINGS: There is a prominent gas-distended colon again demonstrated. There are a few air-fluid levels. Surgical changes with suture lines are noted about the pelvis and lower abdomen. A left lower quadrant ostomy is also noted. Gas in the colon is noted at the level of the ostomy. The overall severity of distention does appear to be somewhat less severe. IMPRESSION: Mildly prominent gaseous distention of the colon. However, the severity of distention appears overall less severe from prior imaging. Gas appears be at the level of the left lower quadrant ostomy. Dictated by: Dictated on workstation # [id number] Dict: 01/12/17 0624 Trans: 01/12/17 1200 Interpreted by: MARLON ARZOLA DO Electronically signed by: MARLON ARZOLA DO 01/12/17 1200 Departure Impression Impression: Primary Impression: Lower abdominal pain Additional Impressions: Hypokalemia Urinary tract infection Qualified Codes: N39.0 - Urinary tract infection, site not specified Disposition: HOME, SELF-CARE Condition: Improved Departure-Patient Inst. Decision time for Depature: 07:22 Referrals: NIKHIL PITTS DO (PCP) Primary Care Physician LINDA BENTLEY (Family) Primary Care Physician Patient Instructions: Acute Abdomen (Belly Pain), Adult (DC) Add. Discharge Instructions: Clear liquid diet today. Tomorrow you may advance your diet with small quantities of bland food as tolerated. Use Reglan as prescribed for nausea. Complete your antibiotic as prescribed. Follow-up with your primary care provider or Dr. Aguilar to review urine cultures. Schedule an appointment to follow-up with Dr. Aguilar in his office. All discharge instructions reviewed with patient and/or family. Voiced understanding. Scripts Ciprofloxacin HCl (Cipro) 500 Mg Tablet 500 MG PO BID, #14 TAB Prov: SHAY ALFONSO MD 01/12/17 Metoclopramide HCl (Reglan) 5 Mg Tablet 5 MG PO QID Y for NAUSEA/VOMITING-1ST LINE, #10 TAB Prov: SHAY ALFONSO MD 01/12/17 Copy Copies To 1: VIJAY AGUILAR MD, JOSHUA T MD Jan 12, 2017 05:56
[2017-01-12] MEDS ORDERED: IOHEXOL 350 MG/ML 100 ML (OMNIPAQUE 350) VIAL IV ONE (06:15)
[2017-01-12] MEDS ORDERED: NS 100 ML (IVPB) BAG IV ONE (06:15)
--- NOTE | 2017-01-12 06:55 | Diagnostic Imaging Report ---
INDICATION: Constipation with history of rectal carcinoma.. TECHNIQUE: Supine and upright view of the abdomen 6:31 AM CORRELATION STUDY: 01/01/2017 FINDINGS: There is a prominent gas-distended colon again demonstrated. There are a few air-fluid levels. Surgical changes with suture lines are noted about the pelvis and lower abdomen. A left lower quadrant ostomy is also noted. Gas in the colon is noted at the level of the ostomy. The overall severity of distention does appear to be somewhat less severe. IMPRESSION: Mildly prominent gaseous distention of the colon. However, the severity of distention appears overall less severe from prior imaging. Gas appears be at the level of the left lower quadrant ostomy. Dictated by: Dictated on workstation # [id number]
[2017-01-12] MEDS ORDERED: KETOROLAC 30 MG/ML VIAL IVP ONE (07:15)
[2017-01-12] MEDS ORDERED: METO5TAB75 PO (07:26)
[2017-01-12] MEDS ORDERED: CIPR-225 PO (07:26)
[2017-01-12] MEDS ORDERED: KCL 10 MEQ TAB (MICRO K) PO ONE (07:30)
[2017-01-12] MEDS ORDERED: METOCLOPRAMIDE INJ 10 MG/2 ML (REGLAN) IVP ONE (07:30)
[2017-01-12 07:42] VITALS: BP 100/65
--- OUTSIDE RECORDS SUMMARY | 2017-01-12 09:42 | XMS REPORT | Continuity of Care Document ---
Author Author [facility] Organization [facility] Address Unknown Phone Unavailable Care Team Providers Care Display Artist Name Role Phone Gildardo Walker PCP [phone] Source Comments Some departments are not documenting in the electronic medical record. If you do not see the information that you expected, contact Release of Information in the Health Information Management department at [phone] for further assistance in locating additional records.[facility] Active Allergies and Adverse Reactions Allergen Noted [...] retention 02/10/2014 Rectal cancer (HCC) 02/10/2014 Overview: [id number] S/p brain-adjuvant chemo/XRT S/p LAR with diverting [...]
--- OUTSIDE RECORDS SUMMARY | 2017-01-12 09:49 | XMS REPORT | Continuity of Care Document ---
Author Author [facility] Address Unknown Phone Unavailable Allergies Active Description Code Type Severity Reaction Onset Reported/Identified Relationship to Patient Clinical Status Yes trazodone 50 mg tablet Drug Allergy 10/17/2012 Yes trazodone 50 mg tablet Drug Allergy N/A N/A 10/17/2012 Yes codeine [id number] Drug Allergy Unknown NAUSEA 01/01/2017 Yes morphine [id number] Drug Allergy Moderate N/A 01/01/2017 Medications Problems [...] VIRAJ SOLIS, ROXI Oseguera Ot Z79.899 OTHER RESIDENTIAL (CURRENT) DRUG THERAPY 06/15/1108 VIRAJ SOLIS, ROXI [...] 569.42 ANAL OR RECTAL PAIN 10/03/2012 SHEREE PROGRAM COUNSELOR, LINDA T 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 [...] GRAHAM MD Ot 276.8 HYPOPOTASSEMIA 12/17/2012 ADOLPH GRAHMA MD Ot 560.1 PARALYTIC ILEUS 12/17/2012 ADOLPH [...] APRN 599.0 URINARY TRACT INFECTION 01/01/2013 SHEREE PROGRAM COUNSELOR, LINDA T 789.05 ABDOMINAL PAIN PERIUMBILIC 01/01/2013 [...] 154.1 MALIGNANT NEOPLASM OF RECTUM 01/07/2013 LINDA BENLTEY APRN T 154.1 MALIGNANT NEOPLASM OF RECTUM 01/07/2013 LINDA BENTLEY APRN 154.1 MALIGNANT NEOPLASM OF RECTUM 01/07/2013 LINDA BENTLEY APRN T 154.1 MALIGNANT NEOPLASM OF RECTUM 01/07/2013 LINDA BENTLEY APRN T 154.1 MALIGNANT NEOPLASM OF RECTUM 01/07/2013 LINDA BENTLEY APRN 154.1 MALIGNANT NEOPLASM OF RECTUM 01/07/2013 LINDA BENTLYE APRN 154.1 MALIGNANT NEOPLASM OF RECTUM 01/07/2013 [...] 535.50 UNSP GASTRITIS GASTRODUODENITIS W/O ME 10/21/2013 ROIX CALI MD Ot 536.3 GASTROPARESIS 10/21/2013 ROXI [...] LINDA BENTLEY Ot 591 06/20/2014 LINDA BENTLEY CLIENT SERVICE COORDINATOR Ot 789.05 06/20/2014 CLAUDE SOLIS, RIVER [...] SOLIS, SHANTE A Ot 591 03/26/2015 SANTOS SOLSI, ADOLPH Jon Ot 154.1 03/26/2015 SANTOS SOLIS, ADOLPH M Ot V72.63 03/26/2015 SANTSO SOLIS, ADOLPH M Ot V74.8 03/26/2015 TED PA CLIENT SERVICE COORDINATOR Ot 154.1 03/26/2015 TED PA CLIENT SERVICE COORDINATOR Ot 280.9 03/26/2015 TED PA S CLIENT SERVICE COORDINATOR Ot 311 03/26/2015 TED PA S CLIENT SERVICE COORDINATOR Ot 530.81 03/26/2015 TED PA S CLIENT SERVICE COORDINATOR Ot 536.3 03/26/2015 TED PA S CLIENT SERVICE COORDINATOR Ot 607.84 03/26/2015 TED PA S CLIENT SERVICE COORDINATOR Ot V58.69 03/26/2015 TED PA CLIENT SERVICE COORDINATOR Ot 154.1 03/26/2015 TED PA S CLIENT SERVICE COORDINATOR Ot 280.9 03/26/2015 TED PA S CLIENT SERVICE COORDINATOR Ot 311 03/26/2015 TED PA S CLIENT SERVICE COORDINATOR Ot 530.81 03/26/2015 TED PA S CLIENT SERVICE COORDINATOR Ot 536.3 03/26/2015 TED PA S CLIENT SERVICE COORDINATOR Ot 607.84 03/26/2015 TED PA S CLIENT SERVICE COORDINATOR Ot V58.69 03/26/2015 VIRAJ SOLIS, ROXI [...] SCREEN-BACTERIAL DIS NEC 11/10/2015 PA TED S CLIENT SERVICE COORDINATOR Ot 154.1 MALIGNANT NEOPL RECTUM 11/10/2015 PA, HILAH S CLIENT SERVICE COORDINATOR Ot 280.9 IRON DEFIC ANEMIA NOS 11/10/2015 PA HILAH S CLIENT SERVICE COORDINATOR Ot 311 DEPRESSIVE DISORDER NEC 11/10/2015 PA HILAH S CLIENT SERVICE COORDINATOR Ot 530.81 ESOPHAGEAL REFLUX 11/10/2015 PA TED S CLIENT SERVICE COORDINATOR Ot 536.3 GASTROPARESIS 11/10/2015 PA, CRISTOAH S CLIENT SERVICE COORDINATOR Ot 607.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, ORGANIC ORIGN 11/10/2015 PA HILAH S CLIENT SERVICE COORDINATOR Ot V58.69 OTH MED,LT,CURRENT USE 11/10/2015 PA TED S CLIENT SERVICE COORDINATOR Ot 154.1 MALIGNANT NEOPL RECTUM 11/10/2015 PA TED S CLIENT SERVICE COORDINATOR Ot 280.9 IRON DEFIC ANEMIA NOS 11/10/2015 PA HILAH S CLIENT SERVICE COORDINATOR Ot 311 DEPRESSIVE DISORDER NEC 11/10/2015 PA TED S CLIENT SERVICE COORDINATOR Ot 530.81 ESOPHAGEAL REFLUX 11/10/2015 PA, TED S CLIENT SERVICE COORDINATOR Ot 536.3 GASTROPARESIS 11/10/2015 PA, TED S CLIENT SERVICE COORDINATOR Ot 607.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, ORGANIC ORIGN 11/10/2015 THIERNO TED S CLIENT SERVICE COORDINATOR Ot V58.69 OTH MED,LT,CURRENT USE 11/10/2015 [...] 03/01/2016 SANTOS SOLIS, ADOLPH Jon Ot V72.81 [id number] CARDIOVASCULAR 03/01/2016 SANTOS SOLIS, ADOLPH Jon Ot [...] MD Ot 311 DEPRESSIVE DISORDER NEC 03/01/2016 RXOI CALI MD Ot 780.52 INSOMNIA, UNSPECIFIED 03/01/2016 [...] NOS 03/03/2016 ADOLPH GRAHAM MD Ot V72.81 [id number] CARDIOVASCULAR 03/03/2016 ADOLPH GARHAM MD Ot V74.8 SCREEN-BACTERIAL DIS NEC 03/03/2016 LINDA BENTLEY CLIENT SERVICE COORDINATOR Ot 591 HYDRONEPHROSIS 03/03/2016 LINDA BENTLEY CLIENT SERVICE COORDINATOR Ot 789.05 ABDOMINAL PAIN, PERIUMBILIC 03/03/2016 [...] V74.8 SCREEN-BACTERIAL DIS NEC 03/15/2016 TED PA CLIENT SERVICE COORDINATOR Ot 154.1 MALIGNANT NEOPL RECTUM 03/15/2016 TED PA CLIENT SERVICE COORDINATOR Ot 280.9 IRON DEFIC ANEMIA NOS 03/15/2016 TED PA CLIENT SERVICE COORDINATOR Ot 311 DEPRESSIVE DISORDER NEC 03/15/2016 TED PA CLIENT SERVICE COORDINATOR Ot 530.81 ESOPHAGEAL REFLUX 03/15/2016 TED PA CLIENT SERVICE COORDINATOR Ot 536.3 GASTROPARESIS 03/15/2016 TED PA CLIENT SERVICE COORDINATOR Ot 607.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, ORGANIC ORIGN 03/15/2016 TED PAP Ot V58.69 OTH MED,LT,CURRENT USE 03/15/2016 TED PA CLIENT SERVICE COORDINATOR Ot 154.1 MALIGNANT NEOPL RECTUM 03/15/2016 TED PA CLIENT SERVICE COORDINATOR Ot 280.9 IRON DEFIC ANEMIA NOS 03/15/2016 CRISTO PAMIGUEL A Juan CLIENT SERVICE COORDINATOR Ot 311 DEPRESSIVE DISORDER NEC 03/15/2016 CRISTO PAMIGUEL A Juan CLIENT SERVICE COORDINATOR Ot 530.81 ESOPHAGEAL REFLUX 03/15/2016 THIERNO TED Juan CLIENT SERVICE COORDINATOR Ot 536.3 GASTROPARESIS 03/15/2016 THIERNO TED Juan CLIENT SERVICE COORDINATOR Ot 607.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, ORGANIC ORIGN 03/15/2016 PATED Juan CLIENT SERVICE COORDINATOR Ot V58.69 OTH MED,LT,CURRENT USE 03/15/2016 [...] SOLIS, ROXI Ana Rosa Ot Z79.899 OTHER FIELD MARKETING REPRESENTATIVE (CURRENT) DRUG THERAPY 03/28/2016 VIRAJ SOLIS, ROXI [...] V74.8 SCREEN-BACTERIAL DIS NEC 04/14/2016 TED PA CLIENT SERVICE COORDINATOR Ot 154.1 MALIGNANT NEOPL RECTUM 04/14/2016 CRISTO PAMIGUEL A Drake CLIENT SERVICE COORDINATOR Ot 280.9 IRON DEFIC ANEMIA NOS 04/14/2016 TED PA CLIENT SERVICE COORDINATOR Ot 311 DEPRESSIVE DISORDER NEC 04/14/2016 TED PA CLIENT SERVICE COORDINATOR Ot 530.81 ESOPHAGEAL REFLUX 04/14/2016 TED PA CLIENT SERVICE COORDINATOR Ot 536.3 GASTROPARESIS 04/14/2016 TED PA CLIENT SERVICE COORDINATOR Ot 607.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, ORGANIC ORIGN 04/14/2016 TED PA CLIENT SERVICE COORDINATOR Ot V58.69 OTH MED,LT,CURRENT USE 04/14/2016 TED PA CLIENT SERVICE COORDINATOR Ot 154.1 MALIGNANT NEOPL RECTUM 04/14/2016 TED PA CLIENT SERVICE COORDINATOR Ot 280.9 IRON DEFIC ANEMIA NOS 04/14/2016 PATED Juan CLIENT SERVICE COORDINATOR Ot 311 DEPRESSIVE DISORDER NEC 04/14/2016 TED PA CLIENT SERVICE COORDINATOR Ot 530.81 ESOPHAGEAL REFLUX 04/14/2016 TED PA CLIENT SERVICE COORDINATOR Ot 536.3 GASTROPARESIS 04/14/2016 PATED Juan CLIENT SERVICE COORDINATOR Ot 607.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, ORGANIC ORIGN 04/14/2016 TED AP CLIENT SERVICE COORDINATOR Ot V58.69 OTH MED,LT,CURRENT USE 04/14/2016 [...] 04/14/2016 ROXI CALI MD Ot Z79.899 OTHER RESIDENTIAL (CURRENT) DRUG THERAPY 04/14/2016 ROXI CALI MD [...] 04/18/2016 ROXI CALI MD, Ot Z79.899 OTHER RESIDENTIAL (CURRENT) DRUG THERAPY 04/18/2016 ROXI CALI MD [...] 05/17/2016 ROXI CALI MD, Ot Z79.899 OTHER RESIDENTIAL (CURRENT) DRUG THERAPY 05/17/2016 ROXI CALI MD, [...] 06/07/2016 ROXI CALI MD, Ot Z79.899 OTHER FIELD MARKETING REPRESENTATIVE (CURRENT) DRUG THERAPY 06/07/2016 ROXI CALI MD [...] 06/16/2016 ROXI CALI MD, Ot Z79.899 OTHER RESIDENTIAL (CURRENT) DRUG THERAPY 06/16/2016 VIRAJ SOLIS, ROXI [...] SCREEN-BACTERIAL DIS NEC 08/13/2016 TED PA S CLIENT SERVICE COORDINATOR Ot 154.1 MALIGNANT NEOPL RECTUM 08/13/2016 TED PA S CLIENT SERVICE COORDINATOR Ot 280.9 IRON DEFIC ANEMIA NOS 08/13/2016 TED PA S CLIENT SERVICE COORDINATOR Ot 311 DEPRESSIVE DISORDER NEC 08/13/2016 TED PA S CLIENT SERVICE COORDINATOR Ot 530.81 ESOPHAGEAL REFLUX 08/13/2016 TED PA S CLIENT SERVICE COORDINATOR Ot 536.3 GASTROPARESIS 08/13/2016 TED PA S CLIENT SERVICE COORDINATOR Ot 607.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, ORGANIC ORIGN 08/13/2016 TED PA S CLIENT SERVICE COORDINATOR Ot V58.69 OTH MED,LT,CURRENT USE 08/13/2016 TED PA S CLIENT SERVICE COORDINATOR Ot 154.1 MALIGNANT NEOPL RECTUM 08/13/2016 TED PA S CLIENT SERVICE COORDINATOR Ot 280.9 IRON DEFIC ANEMIA NOS 08/13/2016 CRISTO PAAH S CLIENT SERVICE COORDINATOR Ot 311 DEPRESSIVE DISORDER NEC 08/13/2016 TED PA S CLIENT SERVICE COORDINATOR Ot 530.81 ESOPHAGEAL REFLUX 08/13/2016 PATED Juan S CLIENT SERVICE COORDINATOR Ot 536.3 GASTROPARESIS 08/13/2016 PATED Juan S CLIENT SERVICE COORDINATOR Ot 607.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, ORGANIC ORIGN 08/13/2016 TED PA S CLIENT SERVICE COORDINATOR Ot V58.69 OTH MED,LT,CURRENT USE 08/13/2016 [...] 08/13/2016 ROXI CALI MD Ot Z79.899 OTHER RESIDENTIAL (CURRENT) DRUG THERAPY 08/13/2016 ROXI CALI MD [...] 08/14/2016 ROXI CALI MD Ot Z79.899 OTHER FIELD MARKETING REPRESENTATIVE (CURRENT) DRUG THERAPY 08/14/2016 ROXI CALI MD [...] 08/14/2016 SHAY ALFONSO MD Ot Z79.899 OTHER FIELD MARKETING REPRESENTATIVE (CURRENT) DRUG THERAPY 08/14/2016 SHAY ALFONSO MD [...] 08/15/2016 SHAY ALFONSO MD Ot Z79.899 OTHER FIELD MARKETING REPRESENTATIVE (CURRENT) DRUG THERAPY 08/15/2016 SHAY ALFONSO MD [...] SHAY ALFONSO MD T Ot Z79.899 OTHER FIELD MARKETING REPRESENTATIVE (CURRENT) DRUG THERAPY 08/16/2016 SHAY ALFONSO MD [...] 08/17/2016 ROXI CALI MD Ot Z79.899 OTHER RESIDENTIAL (CURRENT) DRUG THERAPY 08/17/2016 ROXI CALI MD [...] 08/17/2016 SHAY ALFONSO MD Ot Z79.899 OTHER FIELD MARKETING REPRESENTATIVE (CURRENT) DRUG THERAPY 08/17/2016 SHAY ALFONSO MD [...] NATY SOLIS, SHAY Lester Ot Z79.899 OTHER FIELD MARKETING REPRESENTATIVE (CURRENT) DRUG THERAPY 08/19/2016 NATY SOLIS, SHAY [...] 09/09/2016 ROXI CALI MD Ot Z79.899 OTHER RESIDENTIAL (CURRENT) DRUG THERAPY 09/09/2016 ROXI CALI MD Ot Z92.3 PERSONAL HISTORY OF IRRADIATION 09/13/2016 ROXI CALI MD Ot C20 MALIGNANT NEOPLASM OF RECTUM 09/13/2016 ROXI CALI MD Ot D50.9 IRON DEFICIENCY ANEMIA, UNSPECIFIED 09/13/2016 ROXI CAIL MD Ot F33.9 MAJOR DEPRESSIVE DISORDER, RECURRENT, UN 09/13/2016 ROXI CALI MD Ot G47.00 INSOMNIA, UNSPECIFIED 09/13/2016 ROXI CALI MD Ot N39.490 OVERFLOW INCONTINENCE 09/13/2016 ROXI CALI MD Ot Z79.899 OTHER RESIDENTIAL (CURRENT) DRUG THERAPY 09/13/2016 ROXI CALI MD [...] SCREEN-BACTERIAL DIS NEC 09/21/2016 TED PA S CLIENT SERVICE COORDINATOR Ot 154.1 MALIGNANT NEOPL RECTUM 09/21/2016 PATED Juan S CLIENT SERVICE COORDINATOR Ot 280.9 IRON DEFIC ANEMIA NOS 09/21/2016 TED PA S CLIENT SERVICE COORDINATOR Ot 311 DEPRESSIVE DISORDER NEC 09/21/2016 PATED Juan S CLIENT SERVICE COORDINATOR Ot 530.81 ESOPHAGEAL REFLUX 09/21/2016 TED PA S CLIENT SERVICE COORDINATOR Ot 536.3 GASTROPARESIS 09/21/2016 TED PA S CLIENT SERVICE COORDINATOR Ot 607.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, ORGANIC ORIGN 09/21/2016 PATED Juan S CLIENT SERVICE COORDINATOR Ot V58.69 OTH MED,LT,CURRENT USE 09/21/2016 TED PA S CLIENT SERVICE COORDINATOR Ot 154.1 MALIGNANT NEOPL RECTUM 09/21/2016 PATED Juan S CLIENT SERVICE COORDINATOR Ot 280.9 IRON DEFIC ANEMIA NOS 09/21/2016 PATED Juan S CLIENT SERVICE COORDINATOR Ot 311 DEPRESSIVE DISORDER NEC 09/21/2016 TED PA S CLIENT SERVICE COORDINATOR Ot 530.81 ESOPHAGEAL REFLUX 09/21/2016 PATED Juan S CLIENT SERVICE COORDINATOR Ot 536.3 GASTROPARESIS 09/21/2016 PATED Juan S CLIENT SERVICE COORDINATOR Ot 607.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, ORGANIC ORIGN 09/21/2016 TED PA S CLIENT SERVICE COORDINATOR Ot V58.69 OTH MED,LT,CURRENT USE 09/21/2016 [...] VIRAJ SOLIS, ROXI Oseguera Ot Z79.899 OTHER RESIDENTIAL (CURRENT) DRUG THERAPY 09/21/2016 VIRAJ SOLIS, ROXI [...] SCREEN-BACTERIAL DIS NEC 09/21/2016 TED PA S CLIENT SERVICE COORDINATOR Ot 154.1 MALIGNANT NEOPL RECTUM 09/21/2016 TED PA S CLIENT SERVICE COORDINATOR Ot 280.9 IRON DEFIC ANEMIA NOS 09/21/2016 TED PA S CLIENT SERVICE COORDINATOR Ot 311 DEPRESSIVE DISORDER NEC 09/21/2016 TED PA S CLIENT SERVICE COORDINATOR Ot 530.81 ESOPHAGEAL REFLUX 09/21/2016 TED PA S CLIENT SERVICE COORDINATOR Ot 536.3 GASTROPARESIS 09/21/2016 TED PA S CLIENT SERVICE COORDINATOR Ot 607.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, ORGANIC ORIGN 09/21/2016 TED PA S CLIENT SERVICE COORDINATOR Ot V58.69 OTH MED,LT,CURRENT USE 09/21/2016 TED PA S CLIENT SERVICE COORDINATOR Ot 154.1 MALIGNANT NEOPL RECTUM 09/21/2016 TED PA S CLIENT SERVICE COORDINATOR Ot 280.9 IRON DEFIC ANEMIA NOS 09/21/2016 TED PA S CLIENT SERVICE COORDINATOR Ot 311 DEPRESSIVE DISORDER NEC 09/21/2016 TED PA S CLIENT SERVICE COORDINATOR Ot 530.81 ESOPHAGEAL REFLUX 09/21/2016 TED PA S CLIENT SERVICE COORDINATOR Ot 536.3 GASTROPARESIS 09/21/2016 PATED Juan S CLIENT SERVICE COORDINATOR Ot 607.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, ORGANIC ORIGN 09/21/2016 TED PA S CLIENT SERVICE COORDINATOR Ot V58.69 OTH MED,LT,CURRENT USE 09/21/2016 [...] 09/21/2016 ROXI CALI MD Ot Z79.899 OTHER FIELD MARKETING REPRESENTATIVE (CURRENT) DRUG THERAPY 09/21/2016 ROXI CALI MD, [...] VIRAJ SOLIS, ROXI Oseguera Ot Z79.899 OTHER RESIDENTIAL (CURRENT) DRUG THERAPY 10/06/2016 VIRAJ SOLIS, ROXI Oseguera Ot Z92.3 PERSONAL HISTORY OF IRRADIATION 10/06/2016 LIZBETH SOLIS, SHANTE A Ot 154.1 MALIGNANT NEOPL RECTUM 10/06/2016 LIZBETH SOLIS, SHANTE Peña Ot 571.8 CHRONIC LIVER DIS NEC 10/06/2016 LIZBETH SOLIS, SHANTE Peña Ot 591 HYDRONEPHROSIS 10/06/2016 SANTOS SOLIS, ADOLPH Jon Ot 154.1 MALIGNANT NEOPL RECTUM 10/06/2016 SANTOS SOLSI, ADOLPH Jon Ot V72.63 PRE-PROCEDURAL LABORATORY EXAMINATION 10/06/2016 SANTOS SOLIS, ADOLPH Jon Ot V74.8 SCREEN-BACTERIAL DIS NEC 10/06/2016 TED AP S CLIENT SERVICE COORDINATOR Ot 154.1 MALIGNANT NEOPL RECTUM 10/06/2016 TED PA S CLIENT SERVICE COORDINATOR Ot 280.9 IRON DEFIC ANEMIA NOS 10/06/2016 CRISTO PAAH S CLIENT SERVICE COORDINATOR Ot 311 DEPRESSIVE DISORDER NEC 10/06/2016 CRISTO PAAH S CLIENT SERVICE COORDINATOR Ot 530.81 ESOPHAGEAL REFLUX 10/06/2016 PATED S CLIENT SERVICE COORDINATOR Ot 536.3 GASTROPARESIS 10/06/2016 PACRISTOAH S CLIENT SERVICE COORDINATOR Ot 607.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, ORGANIC ORIGN 10/06/2016 CRISTO PAAH S CLIENT SERVICE COORDINATOR Ot V58.69 OTH MED,LT,CURRENT USE 10/06/2016 PACRISTOAH S CLIENT SERVICE COORDINATOR Ot 154.1 MALIGNANT NEOPL RECTUM 10/06/2016 CRISTO PAAH S CLIENT SERVICE COORDINATOR Ot 280.9 IRON DEFIC ANEMIA NOS 10/06/2016 THIERNO HILAH S CLIENT SERVICE COORDINATOR Ot 311 DEPRESSIVE DISORDER NEC 10/06/2016 PA HILAH S CLIENT SERVICE COORDINATOR Ot 530.81 ESOPHAGEAL REFLUX 10/06/2016 PA HILAH S CLIENT SERVICE COORDINATOR Ot 536.3 GASTROPARESIS 10/06/2016 PACRISTOAH S CLIENT SERVICE COORDINATOR Ot 607.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, ORGANIC ORIGN 10/06/2016 CRISTO PAAH S CLIENT SERVICE COORDINATOR Ot V58.69 OTH MED,LT,CURRENT USE 10/06/2016 ROXI [...] 10/06/2016 ROXI CALI MD Ot Z79.899 OTHER RESIDENTIAL (CURRENT) DRUG THERAPY 10/06/2016 ROXI CALI MD [...] DO JOSE ANTONIO K Ot Z79.899 OTHER FIELD MARKETING REPRESENTATIVE (CURRENT) DRUG THERAPY 10/07/2016 INEZ DO JOSE [...] DO JOSE ANTONIO K Ot Z79.899 OTHER RESIDENTIAL (CURRENT) DRUG THERAPY 10/07/2016 INEZ DICKSON JOSE [...] 10/12/2016 ROXI CALI MD Ot Z79.899 OTHER RESIDENTIAL (CURRENT) DRUG THERAPY 10/12/2016 ROXI CALI MD [...] V74.8 SCREEN-BACTERIAL DIS NEC 10/24/2016 TED PA CLIENT SERVICE COORDINATOR Ot 154.1 MALIGNANT NEOPL RECTUM 10/24/2016 TED PA CLIENT SERVICE COORDINATOR Ot 280.9 IRON DEFIC ANEMIA NOS 10/24/2016 PATED Juan CLIENT SERVICE COORDINATOR Ot 311 DEPRESSIVE DISORDER NEC 10/24/2016 PATED Juan CLIENT SERVICE COORDINATOR Ot 530.81 ESOPHAGEAL REFLUX 10/24/2016 TED PA CLIENT SERVICE COORDINATOR Ot 536.3 GASTROPARESIS 10/24/2016 TED PA CLIENT SERVICE COORDINATOR Ot 607.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, ORGANIC ORIGN 10/24/2016 TED PA CLIENT SERVICE COORDINATOR Ot V58.69 OTH MED,LT,CURRENT USE 10/24/2016 TED PA CLIENT SERVICE COORDINATOR Ot 154.1 MALIGNANT NEOPL RECTUM 10/24/2016 TED PA CLIENT SERVICE COORDINATOR Ot 280.9 IRON DEFIC ANEMIA NOS 10/24/2016 TED PA CLIENT SERVICE COORDINATOR Ot 311 DEPRESSIVE DISORDER NEC 10/24/2016 TED PA CLIENT SERVICE COORDINATOR Ot 530.81 ESOPHAGEAL REFLUX 10/24/2016 TED PA CLIENT SERVICE COORDINATOR Ot 536.3 GASTROPARESIS 10/24/2016 TED PA CLIENT SERVICE COORDINATOR Ot 607.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, ORGANIC ORIGN 10/24/2016 ETD PA CLIENT SERVICE COORDINATOR Ot V58.69 OTH MED,LT,CURRENT USE 10/24/2016 ROXI [...] 10/24/2016 ROXI CALI MD, Ot Z79.899 OTHER RESIDENTIAL (CURRENT) DRUG THERAPY 10/24/2016 ROXI CALI MD Ot Z92.3 PERSONAL HISTORY OF IRRADIATION 10/24/2016 ROXI CALI MD Ot C20 MALIGNANT NEOPLASM OF RECTUM 10/24/2016 ROXI CALI MD, Ot C20 MALIGNANT NEOPLASM OF RECTUM 10/24/2016 ROXI CALI MD, Ot D50.9 IRON DEFICIENCY ANEMIA, UNSPECIFIED 10/24/2016 RXOI CALI MD, Ot F33.9 MAJOR DEPRESSIVE DISORDER, RECURRENT, UN 10/24/2016 ROXI CALI MD, Ot G47.00 INSOMNIA, UNSPECIFIED 10/24/2016 ROXI CALI MD, Ot N39.490 OVERFLOW INCONTINENCE 10/24/2016 ROXI CALI MD, Ot Z79.899 OTHER RESIDENTIAL (CURRENT) DRUG THERAPY 10/24/2016 ROXI CALI MD, [...] 10/24/2016 ROXI CALI MD, Ot Z79.899 OTHER RESIDENTIAL (CURRENT) DRUG THERAPY 10/24/2016 ROXI CALI MD, [...] 12/09/2016 ROXI CALI MD, Ot Z79.899 OTHER RESIDENTIAL (CURRENT) DRUG THERAPY 12/09/2016 ROXI CALI MD, Ot Z92.3 PERSONAL HISTORY OF IRRADIATION 12/11/2016 ROXI CALI MD, Ot C20 MALIGNANT NEOPLASM OF RECTUM 12/11/2016 ROXI CALI MD, Ot D50.9 IRON DEFICIENCY ANEMIA, UNSPECIFIED 12/11/2016 RXOI CALI MD, Ot F33.9 MAJOR DEPRESSIVE DISORDER, RECURRENT, UN 12/11/2016 ROXI CALI MD, Ot G47.00 INSOMNIA, UNSPECIFIED 12/11/2016 ROXI CALI MD, Ot N39.490 OVERFLOW INCONTINENCE 12/11/2016 ROXI CALI MD, Ot Z79.899 OTHER RESIDENTIAL (CURRENT) DRUG THERAPY 12/11/2016 ROXI CALI MD [...] 01/01/2017 ROXI CALI MD, Ot Z79.899 OTHER RESIDENTIAL (CURRENT) DRUG THERAPY 01/01/2017 ROXI CALI MD, Ot Z92.3 PERSONAL HISTORY OF IRRADIATION Procedures Code Description [place] [address] ROUTINE VENIPUNCTURE 08/10/2012 28200 HEMOCCULT 2012 29266 HEMOCCULT 2012 18927 CBC 08/10/2012 58356 CMP 08/10/2012 75946 LIPID PANEL 08/104950 GFR CALC (RESULT ONLY) 08/10/2012 50489 HEMOGLOBIN (IN-HOUSE) 08/27/2012 45.42 08/29/2012 48.24 08/29/2012 Medical [facility] 10/04/2012 46.01 12/06/2012 47.19 12/06/2012 48.63 12/06/2012 86.07 12/06/2012 57.32 12/13/2012 85973 UA W/ CULTURE IF INDICATED 01/01/2013 65316 URINE DRUG SCREEN (IN-HOUSE) 01/01/[address] ABDOMEN & PELVIS W/ & W/O CONTRAST 01/02/2013 47879 ROUTINE VENIPUNCTURE 01/02/2013 52735 CULTURE URINE 01537 CMP 01/03/2013 [id number] GFR CALC (RESULT ONLY) 01/03/2013 86320 CBC 01/03/2013 45.92 SM BOWEL-RECT STUMP ANAS [...] culture - 02/28/16 02:15 Bacterial urine culture [id number] NRG COLONY COUNT 10,000/ML - 100,000/ML NRG [...] susceptibility test by minimum inhibitory concentration - [facility] Bacterial susceptibility panel - 02/28/16 [...] susceptibility test by minimum inhibitory concentration 2 [facility] Bacterial urine culture - 05/30/16 13:50 Bacterial urine culture [id number] NRG COLONY COUNT >100,000/ML NR FTX;REPORTABLE SEE COMMENT NRG FREE TEXT ENTRY 2 PLUS MIXED GRAM POSITIVES NR FREE TEXT ENTRY 3 <10,000/ML [facility] Bacterial susceptibility panel - 05/30/16 [...] susceptibility test by minimum inhibitory concentration - [facility] Bacterial susceptibility panel - 05/30/16 [...] susceptibility test by minimum inhibitory concentration - [facility] Complete blood count (CBC) with [...] culture - 08/14/16 01:13 Bacterial urine culture [id number] NRG COLONY COUNT >100,000/ML NRG FTX;REPORTABLE SENSITIVITY [...] susceptibility test by minimum inhibitory concentration - [facility] Bacterial susceptibility panel - 08/14/16 [...] susceptibility test by minimum inhibitory concentration - [facility] Bacterial susceptibility panel - 01/29/17 [...] INFLUENZA A AND B ANTIGENS BY IA [facility] Blood lactic acid measurement (moles/volume) [...] OF GROWTH Isolated NRG Bacterial blood culture [id number] NRG Capillary blood glucose measurement by glucometer [...] OF GROWTH Isolated NRG Bacterial blood culture [id number] NRG FREE TEXT ENTRY 2 NOT STREPTOCOCCUS [...] culture - 09/21/16 10:15 Bacterial urine culture [id number] NRG COLONY COUNT 10,000/ML - 100,000/ML NRG [...] susceptibility test by minimum inhibitory concentration - [facility] Bacterial susceptibility panel - 09/21/16 [...] susceptibility test by minimum inhibitory concentration - [facility] Complete blood count (CBC) with [...] culture - 10/21/16 00:27 Bacterial urine culture [id number] NRG COLONY COUNT 10,000/ML - 100,000/ML NRG [...] culture - 01/01/17 04:12 Bacterial urine culture [id number] NRG COLONY COUNT 10,000/ML - 100,000/ML NRG FTX;REPORTABLE SENSITIVITY REPORTED 01/02 19:05 NRG FREE TEXT ENTRY 3 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 Type Provider Facility Loc./Unit Complaint [id number] 10/29/2014 09:34:00 10/29/2014 23: 59:59 CLS Outpatient JANINE HERNDON MD [id number] 10/17/2014 10:25:00 10/17/2014 23: 59:59 CLS Outpatient LINDA BENTLEY APRN [id number] 09/29/2014 13:37:00 09/29/2014 23: 59:59 CLS Outpatient JANINE HERNDON MD [id number] 08/01/2014 14:42:00 08/01/2014 23: 59:59 CLS Outpatient LINDA BENTLEY APRN [id number] 06/27/2014 13:22:00 06/27/2014 23: 59:59 CLS Outpatient LINDA BENTLEY APRN [id number] 05/21/2014 14:00:00 05/21/2014 23: 59:59 CLS Outpatient LINDA BENTLEY APRN [id number] 05/07/2014 10:40:00 05/07/2014 23: 59:59 [facility] Outpatient LINDA BENTLEY APRN [id number] 02/25/2014 15:37:00 02/25/2014 23: 59:59 [facility] Outpatient LINDA BENTLEY APRN [id number] 02/19/2014 00:00:00 02/19/2014 23: 59:59 CLS Outpatient LINDA BENTLEY APRN [id number] 01/29/2014 16:00:00 01/29/2014 23: 59:59 [facility] Outpatient LINDA BENTLEY APRN [id number] 12/11/2013 11:57:00 12/11/2013 23: 59:59 CLS Outpatient LINDA BENTLEY APRN [id number] 10/30/2013 14:47:00 10/30/2013 23: 59:59 CLS Outpatient LINDA BENTLEY APRN [id number] 09/03/2013 07:55:00 09/03/2013 23: 59:59 CLS Outpatient GURMEET HERNDON MDHANY Zeinab [id number] 09/02/2013 09:25:00 09/02/2013 23: 59:59 CLS Outpatient LINDA BENTLEY APRN [id number] 05/27/2013 12:30:00 05/27/2013 23: 59:59 CLS Outpatient ADOLPH GRAHAM MD [id number] 04/10/2013 11:45:00 04/10/2013 23: 59:59 CLS Outpatient LINDA BENTLEY APRN [id number] 04/01/2013 15:10:00 04/01/2013 23: 59:59 CLS Outpatient HONG DICKSON NIKHIL Ana Rosa [id number] 03/22/2013 00:00:00 03/22/2013 23: 59:59 CLS Outpatient RIVER ARCE MD [id number] 10/17/2012 16:05:00 10/17/2012 23: 59:59 CLS Outpatient LINDA BENTLEY APRN [id number] 10/03/2012 17:55:00 10/03/2012 23: 59:59 CLS Outpatient LINDA BENTLEY APRN [id number] 09/19/2012 18:39:00 09/19/2012 23: 59:59 CLS Outpatient ADOLPH GRAHAM MD [id number] 08/27/2012 12:52:00 08/27/2012 23: 59:59 CLS Outpatient [id number] 08/10/2012 11:19:00 08/10/2012 23: 59:59 CLS Outpatient LINDA BENTLEY APRN [id number] 08/03/2012 15:56:00 08/03/2012 23: 59:59 CLS Outpatient [id number] 03/11/2013 14:50:00 Document Registration [id number] 01/22/2013 15:25:00 Document Registration [id number] 01/07/2013 15:54:00 Document Registration [id number] 01/02/2013 16:51:00 Document Registration [id number] 01/01/2013 15:26:00 Document Registration
== END 2017-01-12 07:42 | disposition home or self-care (01) ==
LOC: EDUNIT# 04:43 → ER 04:45
DX: R10.31 Right lower quadrant pain (principal); R10.32 Left lower quadrant pain; N39.0 Urinary tract infection, site not specified; E87.6 Hypokalemia; I10 Essential (primary) hypertension; F41.9 Anxiety disorder, unspecified; F32.9 Major depressive disorder, single episode, unspecified; K21.9 Gastro-esophageal reflux disease without esophagitis; Z79.899 Other long term (current) drug therapy
CPT/HCPCS: 36415; 74020; 80053; 81000; 83690; 85025; 87088; 96374; 96375; 96376

== ENCOUNTER 2017-01-29 23:48 | Emergency (ER) | payer MEDICARE, MEDICAID ==
[~2017-01-29] VITALS: Ht 170.2 cm; Wt 90.7 kg
[~2017-01-29 23:48] MED LIST changes: +METO5TAB75 PO
[2017-01-30 00:41] LABS: BASOPHILS % (AUTO) 0 % (0-10); EOSINOPHILS # (AUTO) 0.1 10^3/uL (0.0-0.3); EOSINOPHILS % (AUTO) 1 % (0-10); LYMPHOCYTES # (AUTO) 1.5 X 10^3 (1.0-4.0); LYMPHOCYTES % (AUTO) 17 % (12-44); MEAN CORPUSCULAR HEMOGLOBIN 28 PG (25-34); MEAN CORPUSCULAR HGB CONC 33 G/DL (32-36); MEAN CORPUSCULAR VOLUME 85 FL (80-99); MEAN PLATELET VOLUME 10.7 FL (7.4-10.4); MONOCYTES # (AUTO) 0.6 X 10^3 (0.0-1.0); MONOCYTES % (AUTO) 7 % (0-12); NEUTROPHILS # (AUTO) 6.5 X 10^3 (1.8-7.8); NEUTROPHILS % (AUTO) 75 % (42-75); PLATELET COUNT 245 10^3/uL (130-400); RED BLOOD COUNT 5.07 10^6/uL (4.35-5.85); RED CELL DISTRIBUTION WIDTH 14.1 % (10.0-14.5); WHITE BLOOD COUNT 8.7 10^3/uL (4.3-11.0)
[2017-01-30] MEDS ORDERED: diphenhydrAMINE 50 MG/ML INJ (BENADRYL) IVP ONE (00:45)
[2017-01-30] MEDS ORDERED: ORPHENADRINE 60 MG/2 ML (NORFLEX) AMP IV ONE (00:45)
[2017-01-30] MEDS ORDERED: KETOROLAC 30 MG/ML VIAL IVP ONE (00:45)
[2017-01-30 01:01] LABS: ALBUMIN 3.9 GM/DL (3.2-4.5); BILIRUBIN,TOTAL 0.5 MG/DL (0.1-1.0); CALCIUM 8.5 MG/DL (8.5-10.1); CREATININE SERUM 1.44 MG/DL (0.60-1.30); POTASSIUM 3.3 MMOL/L (3.6-5.0); TOTAL PROTEIN 6.8 GM/DL (6.4-8.2)
[2017-01-30 01:06] LABS: BILIRUBIN,URINE NEGATIVE (NEGATIVE); KETONES,URINE 1+ (NEGATIVE); LEUKOCYTE ESTERASE ,URINE 3+ (NEGATIVE); NITRITE,URINE NEGATIVE (NEGATIVE); PH,URINE 6.5 (5-9); PROTEIN,URINE 2+ (NEGATIVE); SQUAMOUS EPITHELIAL CELL,UR 0-2 /HPF; UROBILINOGEN,URINE NORMAL (NORMAL)
[2017-01-30] MEDS ORDERED: cefTRIAXone INJECTION 1,000 MG in NS (IVPB) 50 ML IV ONE (01:45)
[2017-01-30] MEDS ORDERED: PROM25SU43 RC (01:57)
[2017-01-30] MEDS ORDERED: SULF1TAB35 PO (01:57)
[2017-01-30] MEDS ORDERED: ORPH100T PO (01:57)
[2017-01-30] MEDS ORDERED: ONDA8TAB9 PO (01:57)
--- NOTE | 2017-01-30 01:57 | ED GI ---
General Chief Complaint: Abdominal/GI Problems Stated Complaint: BACK PAIN AB PAIN Nursing Triage Note: PT TO ED 5 W/ C/O N/V/D, DECREASED URINE OUTPUT, LOW BACK ET ABD PAIN ONSET THIS AM, WORSE THROUGHOUT THE DAY. DENIES INJURY. Sepsis Screen: No Definite Risk Source of Information: Patient, Old Records History of Present Illness Time Seen By Provider: 00:30 Initial Comments PT ARRIVES VIA POV FROM HOME PT STATES "IT'S THE SAME THING ALWAYS" "ONLY I HURT IN MY BACK TOO" PT HAS CHRONIC NAUSEA/VOMITING/DIARRHEA/ABDOMINAL PAIN STATES "I CAN'T KEEP ANYTHING DOWN" --STATES HE HAS PHENERGAN TABLETS, AND SUPPOSITORIES, WELL ZOFRAN. BUT ONLY TRIED TO TAKE PHENERGAN PILL AND "COULDN'T KEEP IT DOWN" AND DID NOT TRY THE SUPPOSITORIES OR ZOFRAN ODT STATES HE HAS HAD WATERY STOOLS X 2-3 DAYS STATES HE HAS NOT HAD MUCH URINE OUTPUT TODAY PT HAS HAD MULTITUDE OF VISITS/ ADMITS FOR SAME SEEN HERE 01/01/17 AND DX WITH PARTIAL SBO AND ADMITTED. 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 PT WITH CHRONIC NAUSEA/VOMITING/DIARRHEA/ABDOMINAL PAIN/GROIN PAIN/ RECTAL PAIN. 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 NEXT APPOINTMENT 02/02/17 Allergies and Home Medications Allergies Coded Allergies: morphine (Verified Allergy, Intermediate, 01/01/17) codeine (Verified Adverse Reaction, Unknown, NAUSEA, 01/01/17) Home Medications Ciprofloxacin HCl 500 Mg Tablet, 500 MG PO BID, #14 Prescribed by: SHAY BILLINGS on 01/12/17 0726 Diazepam 10 Mg Tablet, 10 MG PO HS PRN for INSOMNIA/ANXIETY, (Reported) Gabapentin 600 Mg Tablet, 1,200 MG PO TID, (Reported) TAKES 2 (600MG) TABLETS Metoclopramide HCl 5 Mg Tablet, 5 MG PO QID PRN for NAUSEA/VOMITING-1ST LINE, # 10 Prescribed by: SHAY BILLINGS on 01/12/17 07 Ondansetron 8 Mg Tab.rapdis, 8 MG PO Q4H, #14 Prescribed by: JOSE ANTONIO WILEY on 01/30/17 015 Orphenadrine Citrate 100 Mg Tablet.er, 100 MG PO BID, #14 FOR MUSCLE SPASMS Prescribed by: JOSE ANTONIO WILEY on 01/30/17156 Oxycodone HCl 30 Mg Tablet, 30 MG PO BID PRN for SEVERE PAIN, (Reported) Oxycodone HCl/Acetaminophen 1 Each Tablet, 1 TAB PO Q4H, (Reported) Promethazine HCl 12.5 Mg Tablet, 12.5 MG PO Q6H PRN for NAUSEA/VOMITING-2ND LINE , (Reported) Promethazine HCl 25 Mg Supp.rect, 25 MG RC Q4H, #10 Prescribed by: JOSE ANTONIO WILEY on 01/30/17156 Sertraline HCl 100 Mg Tablet, 100 MG PO 1600, (Reported) Sulfamethoxazole/Trimethoprim 1 Each Tablet, 1 EACH PO BID, #30 Prescribed by: JOSE ANTONIO WILEY on 01/30/17156 Temazepam 30 Mg Capsule, 30 MG PO HS, (Reported) Review of Systems Constitutional: no symptoms reported EENTM: No Symptoms Reported Respiratory: No Symptoms Reported Cardiovascular: No Symptoms Reported Gastrointestinal: See HPI, Abdominal Pain, Diarrhea, Nausea, Poor Appetite, Poor Fluid Intake, Vomiting Genitourinary: See HPI Musculoskeletal: see HPI, back pain Skin: no symptoms reported Psychiatric/Neurological: Anxiety Endocrine: No Symptoms Reported Hematologic/Lymphatic: No Symptoms Reported Past Sksvcaa-Vmgyho-Pfutzx Hx Patient Social History Alcohol Use: Denies Use Recreational Drug Use: No Smoking Status: Never a Smoker Recent Foreign Travel: No Contact w/Someone Who Travel: No Recent Infectious Disease Expo: No Recent Hopitalizations: No Immunizations Up To Date Tetanus Booster (TDap): Unknown PED Vaccines UTD: No Seasonal Allergies Seasonal Allergies: No Surgeries HX Surgeries: Yes (RECTAL TUMOR RESECTION WITH ILEOSTOMY AND LATER REVERSAL; MULTIPLE BOWEL RESECTIONS; CYSTECTOMY WITH LEFT UROSTOMY;URETERAL STENTS;PORT RIGHT CHEST; LEFT HAND SURGERY) Surgeries: Abdominal, Bladder Surgery, Bowel Surgery, Cystectomy, Orthopedic, Rectal, Renal, Vascular Surgery Respiratory Hx Respiratory Disorders: No Cardiovascular Hx Cardiac Disorders: Yes (PT SELF DC'D BP MEDICATIONS) Cardiac Disorders: Hypertension Neurological Hx Neurological Disorders: Yes Neurological Disorders: Headaches /Migraines Reproductive System Hx Reproductive Disorders: Yes (E.D.) Sexually Transmitted Disease: No HIV/AIDS: No Genitourinary Hx Genitourinary Disorders: Yes (BLADDER CANCER-S/P CYSTECTOMY WITH UROSTOMY; LEFT HYDRONEPHROSIS WITH URETERAL STENTS, NOW WITH LEFT UROSTOMY) Genitourinary Disorders: Neurogenic Bladder, UTI-Chronic Gastrointestinal Hx Gastrointestinal Disorders: Yes (CHRONIC BOWEL INCONTINENCE; CHRONIC NAUSEA/ VOMITING/DIARRHEA/ABDOMINAL PAIN/ GROIN PAIN/RECTAL PAIN; SUSPECTED NARCOTIC BOWEL; GASTROPARESIS; GASTRITIS; COLON/RECTAL CANCER-S/P RESECTION WITH ILEOSTOMY WITH LATER REVERSAL) Gastrointestinal Disorders: Gastroesophageal Reflux, Gastrointestinal Bleed, Obstructive Bowel, Chronic Diarrhea, C-Diff, Hiatal Hernia Musculoskeletal Hx Musculoskeletal Disorders: No Endocrine Hx Endocrine Disorders: No HEENT HX ENT Disorders: Yes (WEARS GLASSES) Loss of Vision: Denies Hearing Impairment: Denies Cancer Hx Cancer: Yes (BLADDER CANCER--S/P SURGERY; RECTAL CANCER 11/2013-S/P SURGERY/ CHEMO/RADIATION) Cancer: Bladder, Rectal Psychosocial Hx Psychiatric Problems: Yes Behavioral Health Disorders: Anxiety, Depression Integumentary HX Skin/Integumentary Disorder: No Blood Transfusions Hx Blood Disorders: No Adverse Reaction to a Blood Tr: No Family Medical History Family Medial History: Cataract 03 FATHER, Onset:Unknown Chest pain 03 FATHER, Onset:50's - 60 Family history: Allergy 03 MOTHER Family history: Arthritis 03 FATHER 03 MOTHER Family history: Asthma 03 MOTHER Family history: Cardiovascular disease 03 FATHER Family history: Diabetes mellitus 03 FATHER 03 MOTHER Family history: Hypertension 03 FATHER 03 MOTHER Headache 03 FATHER 03 MOTHER Heart disease 03 FATHER History of - respiratory disease 03 MOTHER Hypercholesterolemia 03 FATHER 03 MOTHER Kidney disease 03 MOTHER Psychotic disorder 03 MOTHER Visual impairment 03 FATHER 03 MOTHER No Family History of: Abdominal aortic aneurysm [place]'s disease Alcoholism Aphasia Cancer Cancer of colon Congenital heart disease Congestive heart failure Cystic fibrosis Dementia Dysphagia Family history: Alzheimer's disease Family history: Breast disease Family history: Coronary thrombosis Family history: Gastrointestinal disease Family history: Glaucoma Family history: Osteoporosis Family history: Thyroid disorder Hearing loss Hereditary disease History of - anemia History of - disorder History of drug abuse Human immunodeficiency virus (HIV) seropositivity Infertile Malignant neoplasm of lung Myocardial infarction Parkinson's disease Prostate cancer Seizure disorder Stroke Tuberculosis Physical Exam Vital Signs VS - Last 72 Hours, by Label 01/30/17 01/30/17 00:03 02:16 Temp 98.1 Pulse 94 80 Resp 20 20 B/P (MAP) 141/94 Pulse Ox 98 98 O2 Delivery Room Air Room Air Capillary Refill : Less Than 3 Seconds General Appearance: WD/WN, no apparent distress, other (VERY DRAMATIC, MOANING LOUDLY--THIS STOPS WHEN STAFF LEAVE ROOM) Respiratory: normal breath sounds, no respiratory distress, no accessory muscle use Cardiovascular: regular rate, rhythm, no murmur Gastrointestinal: normal bowel sounds, soft, no organomegaly, no pulsatile mass , No distended, No guarding, No rebound, tenderness (DIFFUSE), No hernia, No mass, other (UROSTOMY BAG IN PLACE) Extremities: normal inspection, normal capillary refill Back: CVA tenderness (R), CVA tenderness (L) Neurologic/Psychiatric: intensive care medicine specialist II-XII nml as tested, no motor/sensory deficits, alert, oriented x 3 Skin: normal color, warm/dry Progress/Results/Core Measures Results/Orders Lab Results Laboratory Tests Test 01/30/17 00:34 01/30/17 00:41 Range/Units White Blood Count 8.7 4.3-11.0 10^3/uL Red Blood Count 5.07 4.35-5.85 10^6/uL Hemoglobin 14.4 13.3-17.7 G/DL Hematocrit 43 40-54 % Mean Corpuscular Volume 85 80-99 FL Mean Corpuscular Hemoglobin 28 25-34 PG Mean Corpuscular Hemoglobin Concent 33 32-36 G/DL Red Cell Distribution Width 14.1 10.0-14.5 % Platelet Count 245 130-400 10^3/uL Mean Platelet Volume 10.7 H 7.4-10.4 FL Neutrophils (%) (Auto) 75 42-75 % Lymphocytes (%) (Auto) 17 12-44 % Monocytes (%) (Auto) 7 0-12 % Eosinophils (%) (Auto) 1 0-10 % Basophils (%) (Auto) 0 0-10 % Neutrophils # (Auto) 6.5 1.8-7.8 X 10^3 Lymphocytes # (Auto) 1.5 1.0-4.0 X 10^3 Monocytes # (Auto) 0.6 0.0-1.0 X 10^3 Eosinophils # (Auto) 0.1 0.0-0.3 10^3/uL Basophils # (Auto) 0.0 0.0-0.1 10^3/uL Sodium Level 142 135-145 MMOL/L Potassium Level 3.3 L 3.6-5.0 MMOL/L Chloride Level 111 H 98-107 MMOL/L Carbon Dioxide Level 19 L 21-32 MMOL/L Anion Gap 12 5-14 MMOL/L Blood Urea Nitrogen 9 7-18 MG/DL Creatinine 1.44 H 0.60-1.30 MG/DL Estimat Glomerular Filtration Rate 52 BUN/Creatinine Ratio 6 Glucose Level 99 70-105 MG/DL Calcium Level 8.5 8.5-10.1 MG/DL Magnesium Level 2.0 1.8-2.4 MG/DL Total Bilirubin 0.5 0.1-1.0 MG/DL Aspartate Amino Transf (AST/SGOT) 15 5-34 U/L Alanine Aminotransferase (ALT/SGPT) 32 0-55 U/L Alkaline Phosphatase 69 40-136 U/L Total Protein 6.8 6.4-8.2 GM/DL Albumin 3.9 3.2-4.5 GM/DL Amylase Level 80 25-125 U/L Lipase 28 8-78 U/L Urine Color YELLOW Urine Clarity SLIGHTLY CLOUDY Urine pH 6.5 5-9 Urine Specific [place] 1.010 L 1.016-1.022 Urine Protein 2+ H NEGATIVE Urine Glucose (UA) NEGATIVE NEGATIVE Urine Ketones 1+ H NEGATIVE Urine Nitrite NEGATIVE NEGATIVE Urine Bilirubin NEGATIVE NEGATIVE Urine Urobilinogen NORMAL NORMAL MG/DL Urine Leukocyte Esterase 3+ H NEGATIVE Urine RBC (Auto) 5+ H NEGATIVE Urine RBC 50-100 H /HPF Urine WBC 10-25 H /HPF Urine Squamous Epithelial Cells 0-2 /HPF Urine Crystals NONE /LPF Urine Bacteria FEW H /HPF Urine Casts NONE /LPF Urine Mucus NONE /LPF Urine Culture Indicated YES Urine Opiates Screen NEGATIVE NEGATIVE Urine Oxycodone Screen NEGATIVE NEGATIVE Urine Methadone Screen NEGATIVE NEGATIVE Urine Propoxyphene Screen NEGATIVE NEGATIVE Urine Barbiturates Screen NEGATIVE NEGATIVE Ur Tricyclic Antidepressants Screen NEGATIVE NEGATIVE Urine Phencyclidine Screen NEGATIVE NEGATIVE Urine Amphetamines Screen NEGATIVE NEGATIVE Urine Methamphetamines Screen NEGATIVE NEGATIVE Urine Benzodiazepines Screen POSITIVE H NEGATIVE Urine Cocaine Screen NEGATIVE NEGATIVE Urine Cannabinoids Screen NEGATIVE NEGATIVE Micro Results Microbiology 01/30/17 Urine Culture - Final, Complete Staphylococcus Aureus My Orders Orders - JOSE ANTONIO WILEY DO Saline Lock/Iv-Start (01/30/17 00:36) Amylase (01/30/17 00:36) Cbc With Automated Diff (01/30/17 00:36) Comprehensive Metabolic Panel (01/30/17 00:36) Drug Screen Stat (Urine) (01/30/17 00:36) Lipase (01/30/17 00:36) Magnesium (01/30/17 00:36) Ua Culture If Indicated (01/30/17 00:36) Ct Abd/Pelvis Wo(Kidney Stone) (01/30/17 00:36) Acute Abd Series (01/30/17 00:36) Diphenhydramine Injection (Benadryl Inje (01/30/17 00:45) Ketorolac Injection (Toradol Injection) (01/30/17 00:45) Orphenadrine Injection (Norflex Injectio (01/30/17 00:45) Urine Culture (01/30/17 00:41) Ceftriaxone Injection (Rocephin Injectio (01/30/17 01:45) Iv Push Bilingual Case Manager Ed (01/29/17 ) Medications Given in ED Vital Signs/I&O Vital Sign - Last 12Hours 01/30/17 01/30/17 00:03 02:16 Temp 98.1 Pulse 94 80 Resp 20 20 B/P (MAP) 141/94 Pulse Ox 98 98 O2 Delivery Room Air Room Air Blood Pressure Mean: 110 Progress Note : Progress Note NO VOMITING DURING ER STAY AND PAIN EASED AT DISMISSAL Diagnostic Imaging Comments CT ABDOMEN/PELVIS--S/P CYSTECTOMY, MILD DILATION OF URETERS WITHOUT OBSTRUCTION , LEFT URETERAL WALL THICKENING-INFECTION NOT EXCLUDED. NO BOWEL OBSTRUCTION-- PER [facility] VIA FAX @ [phone] Reviewed: Reviewed by Me Departure Impression Impression: Primary Impression: Urinary tract infection Additional Impression: CHRONIC NAUSEA/VOMITING/DIARRHEA/ABDOMINAL PAIN Disposition: HOME, SELF-CARE Condition: Improved Departure-Patient Inst. Referrals: NIKHIL PITTS DO (PCP) Primary Care Physician LINDA BENTLEY (Family) Primary Care Physician Patient Instructions: CHRONIC PAIN, Urinary Tract Infection, Adult (DC) Add. Discharge Instructions: CONTINUE YOUR REGULAR MEDICATIONS PRESCRIBED FOLLOW UP WITH YOUR DR IN 2-3 DAYS FOR FURTHER CARE All discharge instructions reviewed with patient and/or family. Voiced understanding. Scripts Orphenadrine Citrate (Orphenadrine Citrate) 100 Mg Tablet.er 100 MG PO BID, #14 TAB FOR MUSCLE SPASMS Prov: JOSE ANTONIO WILEY DO 01/30/17 Ondansetron (Zofran Odt) 8 Mg Tab.rapdis 8 MG PO Q4H for Nausea/Vomiting, #14 TAB Prov: JOSE ANTONIO WILEY DO 01/30/17 Promethazine HCl (Phenergan) 25 Mg Supp.rect 25 MG RC Q4H for Nausea/Vomiting, #10 SUPP.RECT Prov: JOSE ANTONIO WILEY DO 01/30/17 Sulfamethoxazole/Trimethoprim (Bactrim Ds Tablet) 1 Each Tablet 1 EACH PO BID, #30 TAB Prov: JOSE ANTONIO WILEY DO 01/30/17 JOSE ANTONIO WILEY DO Jan 30, 2017 01:57
[2017-01-30 02:16] VITALS: BP 120/68
--- NOTE | 2017-01-30 06:49 | Diagnostic Imaging Report ---
INDICATION: Abdominal pain with nausea and emesis Supine and upright views of the abdomen are obtained with single view of the chest. Comparison is made to study of 01/12/2017. Lungs appear clear, bilaterally. Right anterior chest wall port is in place with catheter tip projecting over the mid superior vena cava. There are scattered air-fluid levels in small and large bowel with left lower quadrant ostomy noted. Numerous surgical clips and suture material are seen in the pelvis. No definite free intraperitoneal gas or pneumatosis is seen. IMPRESSION: Nonspecific bowel gas pattern may reflect ileus. Dictated by: Dictated on workstation # [id number]
--- NOTE | 2017-01-30 07:31 | Diagnostic Imaging Report ---
PROCEDURE: CT urinary tract, rule out kidney stone. TECHNIQUE: Multiple contiguous axial images were obtained through the abdomen and pelvis without the use of intravenous contrast. INDICATION: Abdominal pain with nausea, emesis and diarrhea. Comparison is made study of 01/01/2017. Similar to the previous study, patient is post cystectomy with urinary diversion. The collecting systems and ureters are prominent, bilaterally are mildly increased in dimensions when compared to previous study. The presacral soft tissue thickening and pelvic scarring have not appreciably changed. Note is made of hepatic steatosis without focal hepatic or splenic abnormality. No gallbladder or pancreatic lesion is identified. Adrenal glands are unremarkable. There is no significant free fluid. IMPRESSION: Postoperative changes of cystectomy are similar to previous study. There has been mild increase in overall diameter of the ureters may be related to reflux or ureteritis. Correlation with urinalysis would be of value. Otherwise, no acute abnormality or significant change detected. Dictated by: Dictated on workstation # [id number]
== END 2017-01-30 02:16 | disposition home or self-care (01) ==
LOC: EDUNIT# 23:48 → ER 23:50
DX: N39.0 Urinary tract infection, site not specified (principal); R19.7 Diarrhea, unspecified; R11.2 Nausea with vomiting, unspecified; I10 Essential (primary) hypertension; G43.909 Migraine, unspecified, not intractable, without status migrainosus; K21.9 Gastro-esophageal reflux disease without esophagitis; F41.9 Anxiety disorder, unspecified; F32.9 Major depressive disorder, single episode, unspecified; Z82.49 Family history of ischemic heart disease and other diseases of the circulatory system; Z85.048 Personal history of other malignant neoplasm of rectum, rectosigmoid junction, and anus; Z85.51 Personal history of malignant neoplasm of bladder; Z87.19 Personal history of other diseases of the digestive system; Z93.6 Other artificial openings of urinary tract status
CPT/HCPCS: 36415; 74022; 74176; 80053; 80306; 81000; 82150; 83690; 83735; 85025; 87077; 87088; 87186; 96374; 96375

== ENCOUNTER 2017-03-13 13:24 | Outpatient (RCR) | payer MEDICARE, MEDICAID ==
[~2017-03-13 13:24] MED LIST changes: +ORPH100T PO; +SULF1TAB35 PO
[2017-03-13 13:47] LABS: BASOPHILS % (AUTO) 1 % (0-10); EOSINOPHILS # (AUTO) 0.4 10^3/uL (0.0-0.3); EOSINOPHILS % (AUTO) 6 % (0-10); LYMPHOCYTES # (AUTO) 1.6 X 10^3 (1.0-4.0); LYMPHOCYTES % (AUTO) 28 % (12-44); MEAN CORPUSCULAR HEMOGLOBIN 29 PG (25-34); MEAN CORPUSCULAR HGB CONC 34 G/DL (32-36); MEAN CORPUSCULAR VOLUME 85 FL (80-99); MEAN PLATELET VOLUME 10.5 FL (7.4-10.4); MONOCYTES # (AUTO) 0.5 X 10^3 (0.0-1.0); MONOCYTES % (AUTO) 8 % (0-12); NEUTROPHILS # (AUTO) 3.4 X 10^3 (1.8-7.8); NEUTROPHILS % (AUTO) 58 % (42-75); PLATELET COUNT 215 10^3/uL (130-400); RED BLOOD COUNT 4.72 10^6/uL (4.35-5.85); RED CELL DISTRIBUTION WIDTH 13.2 % (10.0-14.5)
[2017-03-13 14:05] LABS: ALBUMIN 4.1 GM/DL (3.2-4.5); BILIRUBIN,TOTAL 1.4 MG/DL (0.1-1.0); CALCIUM 8.7 MG/DL (8.5-10.1); CREATININE SERUM 1.28 MG/DL (0.60-1.30); POTASSIUM 3.8 MMOL/L (3.6-5.0)
== END 2017-04-15 | disposition home or self-care (01) ==
LOC: ONC 13:24
PROVIDERS: ATTEND Internal Medicine Hematology & Oncology
DX: C20 Malignant neoplasm of rectum (principal); D50.9 Iron deficiency anemia, unspecified; F33.9 Major depressive disorder, recurrent, unspecified; G47.00 Insomnia, unspecified; N39.490 Overflow incontinence; Z79.899 Other long term (current) drug therapy; Z92.3 Personal history of irradiation
CPT/HCPCS: 36415; 80053; 82378; 82728; 83540; 85025; 99213

== ENCOUNTER 2017-04-18 06:35 | Emergency (ER) | payer MEDICARE, MEDICAID ==
[~2017-04-18] VITALS: Ht 170.2 cm; Wt 90.7 kg
--- OUTSIDE RECORDS SUMMARY | 2017-04-18 06:45 | XMS REPORT | Clinical Summary ---
Author Author [facility] Organization [facility] Address Unknown Phone Unavailable Care Team Providers Care Ethylene Compressor Operator Name Role Phone PCP Unavailable Source Comments Some departments are not documenting in the electronic medical record. If you do not see the information that you expected, contact Release of Information in the Health Information Management department at [phone] for further assistance in locating additional records.[facility] Allergies Active Allergy Reactions Severity Noted Date Comments Codeine NAUSEA AND VOMITING 02/10/2014 Morphine ITCHING 02/10/2014 Current Medications Prescription Sig. Disp. Refills Start [...] retention 02/10/2014 Rectal cancer (HCC) 02/10/2014 Overview: [id number] S/p brain-adjuvant chemo/XRT S/p LAR with diverting ileostomy S/p ileostomy takedown. Ureteral stricture 02/10/2014 Overview: Indwelling JJ stent on left Family History Medical History Relation Name Comments Cancer Other Diabetes Other Heart Attack Other Heart Disease Other Hypertension Other Relation Name Status Comments Other Social History Tobacco Use Types Packs/Day Years Used Date Never Smoker Smokeless Tobacco: Never Used Alcohol Use Drinks/Week oz/Week Comments No Sex Assigned at Date Recorded Not on file Last Filed Vital Signs Vital Sign Reading Time Taken Blood Pressure 109/75 04/21/2014 8:37 AM CDT Pulse 80 04/21/2014 8:37 AM CDT Temperature 36.7 C (98.1 F) 04/07/2014 11:43 AM CDT Respiratory Rate - - Oxygen Saturation 100% 04/07/2014 11:43 AM CDT Inhaled Oxygen - - Concentration Weight 77.1 kg (170 lb) 04/21/2014 8:37 AM CDT Height 170.2 cm (5' 7") 04/21/2014 8:37 AM CDT Body Mass Index 26.63 04/21/2014 8:37 AM CDT Plan of Treatment Health Maintenance Due Date Last Done Comments PHYSICAL (COMPREHENSIVE) 1973 EXAM PERTUSSIS VACCINE 1977 TETANUS VACCINE 1983 COLORECTAL CANCER 2016 SCREENING INFLUENZA VACCINE 04/16/2017 Results Not on filefrom Last 3 Months
--- OUTSIDE RECORDS SUMMARY | 2017-04-18 06:47 | XMS REPORT ---
Author Author LINDA BENTLEY Organization [facility] Address [address] [place] [address] Care Team Providers Care Vb Developer Name Role Phone SHEREE LINDA Unavailable PROBLEMS Type Condition ICD9-CM Code [id number] Code Onset Dates Condition Status SNOMED Code Problem Hydronephrosis with ureteral stricture, not elsewhere classified N13.1 Active 17280985 Problem 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 008382114 Problem Primary insomnia F51.01 Active 507459336 Problem Chronic fatigue, unspecified R53.82 Active 401821251 Problem Polyneuropathy G62.9 Active 51060953 Problem Anxiety F41.9 Active 20464007 Problem Hypertension, benign I10 Active 54982210 Problem Abdominal pain, left lower quadrant R10.32 Active 278118902 Problem Neuropathy G62.9 Active 778411254 Problem Mood disorder F39 Active 59784485 ALLERGIES Unknown Allergies SOCIAL HISTORY No smoking Hx information available PLAN OF CARE VITAL SIGNS MEDICATIONS Medication Instructions Dosage Frequency Start Date End Date Duration Status Percocet 10-325 MG Orally every 4 hrs 1 tablet 4h Jul, 28 days Active Klonopin 2 MG Orally 3 times a day as needed 1 tablet Sep, 28 days Active RESULTS No Results PROCEDURES No Known procedures IMMUNIZATIONS No Known Immunizations
--- OUTSIDE RECORDS SUMMARY | 2017-04-18 06:48 | XMS REPORT ---
Author Author RIVER ARCE [facility] Address [address] [place] [address] Care Team Providers Care Care Program Director Name Role Phone RIVER ARCE Unavailable PROBLEMS Type Condition ICD9-CM Code [id number] Code Onset Dates Condition Status SNOMED Code Problem Hydronephrosis with ureteral stricture, not elsewhere classified N13.1 Active 02326419 Problem 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 585527243 Problem Primary insomnia F51.01 Active 789858378 Problem Chronic fatigue, unspecified R53.82 Active 174378096 Problem Polyneuropathy G62.9 Active 75440409 Problem Anxiety F41.9 Active 47351600 Problem Hypertension, benign I10 Active 79017268 Problem Abdominal pain, left lower quadrant R10.32 Active 560780910 Problem Neuropathy G62.9 Active 194003045 Problem Mood disorder F39 Active 52744687 ALLERGIES Substance Reaction Event Type Date Status Morphine Unknown Drug Allergy Aug, Active Codeine Unknown Drug Allergy Aug, Active SOCIAL HISTORY Never Assessed PLAN OF CARE Activity Details Follow Up 3 Months Reason: VITAL SIGNS Height 67 in 2016-08-22 Weight 190.6 lbs 2016-08-22 Temperature 98.1 degrees Fahrenheit 2016-08-22 Heart Rate 80 bpm 2016-08-22 Respiratory Rate 18 2016-08-22 BMI 29.85 kg/m2 2016-08-22 Blood pressure systolic 128 mmHg 2016-08-22 Blood pressure diastolic 80 mmHg 2016-08-22 MEDICATIONS Medication Instructions Dosage Frequency Start Date End Date Duration Status Oxycodone HCl 30 MG Orally 2 times a day 1 tablet as needed 12h Jul, 28 days Active Gabapentin 600 MG 2 tablet 8h Active Klonopin 2 MG Orally 3 times a day as needed 1 tablet Sep, 28 days Active Lomotil 2.5-0.025 MG Orally Four times a day 1 tablet as needed 6h Aug, Active Iron 325 (65 Fe) MG Orally twice a day 1 tablet 12h Active Protonix 40 mg 1 tablet 24h Sep, Active Zoloft 100 Orally Once a day 1 tablet 24h 30 Active Percocet 10-325 MG Orally every 4 hrs 1 tablet 4h Jul, 28 days Active Acyclovir 400 MG TAKE ONE TABLET BY MOUTH TWICE DAILY FOR 7 DAYS 7 Active Doxepin HCl 100 MG Orally Once a day 2 capsules at bedtime 24h 30 Active Zofran 4 MG Orally Once a day 2 tablets 24h Active Meclizine HCl 25 MG Orally Once a day 1 tablet as needed 24h Active RESULTS No Results PROCEDURES Procedure Date Ordered Result Body Site [facility] VISIT ESTABLISHED PATIENT Aug 22, 2016 IMMUNIZATIONS No Known Immunizations MEDICAL (GENERAL) HISTORY Type Description Date Medical History Gerd, gastroparesis Medical History depression Medical History Rectal cancer s/p chemo and radiation:last chemo 07/16/14 dc' d due to intolerance, no evidence of recurrent disease on PET scan 10/08/13 Medical History dizziness Surgical History colon resection with ileostomy by dr. Cook d/t rectal cancer 12/06/12 Surgical History bladder removal 2012 Hospitalization History abd pain anemia, recurrent UTI 10/15/13 Hospitalization History colon resection with ileostomy by dr. Cook d/t rectal cancer Hospitalization History Intractable n/v, chronic, abd pain, acute renal 03/27 Hospitalization History ER [facility] for dizziness and nausea 12/07/15 Hospitalization History UTI, AMS-[facility] 09/21/16 Hospitalization History Large bowel obstruction, Dehydration-[facility] 01/01/17
[2017-04-18] MEDS ORDERED: NS IV 1000 ML 1,000 ML IV ONE (06:49)
[2017-04-18] MEDS ORDERED: PROMETHAZINE INJ 25 MG/ML (PHENERGAN) AMP IVP STA (06:49)
[2017-04-18] MEDS ORDERED: fentaNYL INJECTION 100 MCG/2 ML AMP IVP STA (06:49)
--- OUTSIDE RECORDS SUMMARY | 2017-04-18 06:50 | XMS REPORT ---
Author Author LINDA BENTLEY [facility] Address [address] [place] [address] Care Team Providers Care Steel Sash Erector Name Role Phone LINDA BENTLEY Unavailable PROBLEMS Type Condition ICD9-CM Code RUX35-FU Code Onset Dates Condition Status SNOMED Code Problem Primary insomnia F51.01 Active 316594049 Problem Mood disorder F39 Active 71398674 Problem Chronic fatigue, unspecified R53.82 Active 540656957 Problem 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 662653425 Problem Polyneuropathy G62.9 Active 87092605 Problem Neuropathy G62.9 Active 857419513 Problem Hypertension, benign I10 Active 32829575 Problem Abdominal pain, left lower quadrant R10.32 Active 086893717 Problem Anxiety F41.9 Active 95282654 Problem Hydronephrosis with ureteral stricture, not elsewhere classified N13.1 Active 99876224 ALLERGIES Unknown Allergies SOCIAL HISTORY No smoking Hx information available PLAN OF CARE VITAL SIGNS MEDICATIONS Unknown Medications RESULTS No Results PROCEDURES No Known procedures IMMUNIZATIONS No Known Immunizations
--- OUTSIDE RECORDS SUMMARY | 2017-04-18 06:50 | XMS REPORT ---
Author Author LINDA BENTLEY [facility] Address [address] [place] [address] Care Team Providers Care Fuel Buyer Name Role Phone LINDA BENTLEY Unavailable PROBLEMS Type Condition ICD9-CM Code [id number] Code Onset Dates Condition Status SNOMED Code Problem Hydronephrosis with ureteral stricture, not elsewhere classified N13.1 Active 21439004 Problem 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 303750530 Problem Primary insomnia F51.01 Active 765757737 Problem Chronic fatigue, unspecified R53.82 Active 739080576 Problem Polyneuropathy G62.9 Active 04682081 Problem Anxiety F41.9 Active 84444860 Problem Hypertension, benign I10 Active 24887023 Problem Abdominal pain, left lower quadrant R10.32 Active 813910189 Problem Neuropathy G62.9 Active 302423418 Problem Mood disorder F39 Active 66218012 ALLERGIES Unknown Allergies SOCIAL HISTORY No smoking Hx information available PLAN OF CARE VITAL SIGNS MEDICATIONS Medication Instructions Dosage Frequency Start Date End Date Duration Status Oxycodone HCl 30 MG Orally 2 times a day 1 tablet as needed 12h 09 Jul, 2016 28 days Active RESULTS No Results PROCEDURES No Known procedures IMMUNIZATIONS No Known Immunizations
--- OUTSIDE RECORDS SUMMARY | 2017-04-18 06:51 | XMS REPORT ---
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 394795309 Problem Primary insomnia F51.01 Active 419128114 Problem Chronic fatigue, unspecified R53.82 Active 918988586 Problem Polyneuropathy G62.9 Active 50894611 Problem Anxiety F41.9 Active 60381359 Problem Hypertension, benign I10 Active 37152927 Problem Abdominal pain, left lower quadrant R10.32 Active 738327446 Problem Neuropathy G62.9 Active 699447893 Problem Mood disorder F39 Active 82839414 ALLERGIES No Information SOCIAL HISTORY Never Assessed PLAN OF CARE VITAL SIGNS MEDICATIONS Medication Instructions Dosage Frequency Start Date End Date Duration Status Oxycodone HCl 30 MG Orally 2 times a day 1 tablet as needed 12h 07 Sep, 2016 28 days Active RESULTS No Results PROCEDURES No Known procedures IMMUNIZATIONS No Known Immunizations MEDICAL (GENERAL) HISTORY [...]
--- OUTSIDE RECORDS SUMMARY | 2017-04-18 06:52 | XMS REPORT ---
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 053455783 Problem Primary insomnia F51.01 Active 340639934 Problem Chronic fatigue, unspecified R53.82 Active 974360316 Problem Polyneuropathy G62.9 Active 37819219 Problem Anxiety F41.9 Active 61235747 Problem Hypertension, benign I10 Active 26931775 Problem Abdominal pain, left lower quadrant R10.32 Active 913615856 Problem Neuropathy G62.9 Active 356678614 Problem Mood disorder F39 Active 42115908 ALLERGIES No Information SOCIAL HISTORY Never Assessed PLAN OF CARE VITAL SIGNS MEDICATIONS Medication Instructions Dosage Frequency Start Date End Date Duration Status Klonopin 2 MG Orally 3 times a day as needed 1 tablet Sep, 28 days Active Percocet 10-325 MG Orally every 4 hrs 1 tablet 4h Aug, 28 days Active RESULTS No Results PROCEDURES [...]
[2017-04-18 06:57] LABS: BASOPHILS % (AUTO) 0 % (0-10); EOSINOPHILS % (AUTO) 0 % (0-10); LYMPHOCYTES # (AUTO) 2.9 X 10^3 (1.0-4.0); LYMPHOCYTES % (AUTO) 17 % (12-44); MEAN CORPUSCULAR HEMOGLOBIN 28 PG (25-34); MEAN CORPUSCULAR HGB CONC 34 G/DL (32-36); MEAN CORPUSCULAR VOLUME 82 FL (80-99); MEAN PLATELET VOLUME 10.2 FL (7.4-10.4); MONOCYTES # (AUTO) 0.9 X 10^3 (0.0-1.0); MONOCYTES % (AUTO) 6 % (0-12); NEUTROPHILS # (AUTO) 13.3 X 10^3 (1.8-7.8); NEUTROPHILS % (AUTO) 77 % (42-75); PLATELET COUNT 559 10^3/uL (130-400); RED BLOOD COUNT 6.04 10^6/uL (4.35-5.85); RED CELL DISTRIBUTION WIDTH 13.7 % (10.0-14.5); WHITE BLOOD COUNT 17.2 10^3/uL (4.3-11.0)
--- OUTSIDE RECORDS SUMMARY | 2017-04-18 06:58 | XMS REPORT ---
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 809760792 Problem Polyneuropathy G62.9 Active 60013320 Problem Neuropathy G62.9 Active 055089200 Problem Hypertension, benign I10 Active 17044133 Problem Abdominal pain, left lower quadrant R10.32 Active 122033156 Problem Anxiety F41.9 Active 55084416 Problem Hydronephrosis with ureteral stricture, not elsewhere classified N13.1 Active 96539607 ALLERGIES Unknown Allergies SOCIAL HISTORY No smoking Hx information available PLAN OF CARE VITAL SIGNS MEDICATIONS Medication Instructions Dosage Frequency Start Date End Date Duration Status Percocet 10-325 MG Orally every 4 hrs 1 tablet 4h Jul, 28 days Active Doxepin HCl 100 MG Orally Once a day 2 capsules at bedtime 24h 30 Active Klonopin 2 MG Orally 3 times a day as needed 1 tablet Sep, 28 days Active Zoloft 100 Orally Once a day 1 tablet 24h 30 Active RESULTS No Results PROCEDURES No Known procedures IMMUNIZATIONS No Known Immunizations
--- OUTSIDE RECORDS SUMMARY | 2017-04-18 06:58 | XMS REPORT ---
Author Author LINDA BENTLEY 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 740117706 Problem Primary insomnia F51.01 Active 837154939 Problem Chronic fatigue, unspecified R53.82 Active 785043600 Problem Polyneuropathy G62.9 Active 27833553 Problem Anxiety F41.9 Active 53774653 Problem Hypertension, benign I10 Active 18159295 Problem Abdominal pain, left lower quadrant R10.32 Active 359456489 Problem Neuropathy G62.9 Active 841420317 Problem Mood disorder F39 Active 74664732 ALLERGIES Unknown Allergies SOCIAL HISTORY No smoking Hx information available PLAN OF CARE VITAL SIGNS MEDICATIONS Unknown Medications RESULTS No Results PROCEDURES No Known procedures IMMUNIZATIONS No Known Immunizations
--- OUTSIDE RECORDS SUMMARY | 2017-04-18 06:59 | XMS REPORT ---
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 840085119 Problem Primary insomnia F51.01 Active 991168425 Problem Chronic fatigue, unspecified R53.82 Active 118697137 Problem Polyneuropathy G62.9 Active 91035035 Problem Anxiety F41.9 Active 41001036 Problem Hypertension, benign I10 Active 19438181 Problem Abdominal pain, left lower quadrant R10.32 Active 903491646 Problem Neuropathy G62.9 Active 089801562 Problem Mood disorder F39 Active 78984414 ALLERGIES Unknown Allergies SOCIAL HISTORY No smoking Hx information available PLAN OF CARE VITAL SIGNS MEDICATIONS Medication Instructions Dosage Frequency Start Date End Date Duration Status Oxycodone HCl 30 MG Orally 2 times a day 1 tablet as needed 12h 07 Aug, 2016 28 days Active RESULTS No Results PROCEDURES No Known procedures IMMUNIZATIONS No Known Immunizations
[2017-04-18 07:20] LABS: ALBUMIN 4.8 GM/DL (3.2-4.5); CALCIUM 9.8 MG/DL (8.5-10.1); CREATININE SERUM 1.52 MG/DL (0.60-1.30); POTASSIUM 3.3 MMOL/L (3.6-5.0); TOTAL PROTEIN 8.7 GM/DL (6.4-8.2)
[2017-04-18 07:23] LABS: BAND NEUTROPHILS 0 %; BASOPHILS % (MANUAL) 0 %; EOSINOPHILS % (MANUAL) 1 %; LYMPHOCYTES % (MANUAL) 6 %; NEUTROPHILS % (MANUAL) 81 %; REACTIVE LYMPHOCYTES 5 %
--- NOTE | 2017-04-18 07:55 | ED GI ---
General Chief Complaint: Abdominal/GI Problems Stated Complaint: CAN'T KEEP MEDICINE DOWN,DIARRHEA Nursing Triage Note: PT AMBULATED TO ROOM. PT C/O DIARRHEA AND VOMITING FOR PAST 3 DAYS. PT ALSO C/O ABD PAIN. Sepsis Screen: No Definite Risk Source of Information: Patient Exam Limitations: No Limitations History of Present Illness Time Seen By Provider: 06:45 Initial Comments Here with report of nausea, vomiting and diarrhea for the past 3 days. States that he is unable to keep any of his medicines down. This does include narcotics and anxiety medicines. Patient has nausea medicines at home and these are not helping. Has intermittent episodes of this and states this is a typical flare. Usually requires pain and nausea medicine as well as IV fluid in the ER and then he is able to tolerate home. He thinks that that will likely be the case today as well. Denies fever or chills. Denies pain out of character from normal. Timing/Duration: 2-3 Days Severity/Quality: Moderate, Cramping Location: Generalized Abdomen Radiation: No Radiation Activities at Onset: None Modifying Factors: Improves With Defecating, Worsens With Eating, Improves With Vomiting Associated Symptoms: No Back Pain, No Chest Pain, No Fever/Chills, Nausea/ Vomiting, No Shortness of Air, No Weakness Allergies and Home Medications Allergies Coded Allergies: morphine (Verified Allergy, Intermediate, 01/01/17) codeine (Verified Adverse Reaction, Unknown, NAUSEA, 01/01/17) Home Medications Ciprofloxacin HCl 500 Mg Tablet, 500 MG PO BID, #14 Prescribed by: SHAY BILLINGS on 01/12/17725 Diazepam 10 Mg Tablet, 10 MG PO HS PRN for INSOMNIA/ANXIETY, (Reported) Gabapentin 600 Mg Tablet, 1,200 MG PO TID, (Reported) TAKES 2 (600MG) TABLETS Metoclopramide HCl 5 Mg Tablet, 5 MG PO QID PRN for NAUSEA/VOMITING-1ST LINE, # 10 Prescribed by: SHAY BILLINGS on 01/12/17 0726 Ondansetron 8 Mg Tab.rapdis, 8 MG PO Q4H, #14 Prescribed by: JOSE ANTONIO WILEY on 01/30/17 0157 Orphenadrine Citrate 100 Mg Tablet.er, 100 MG PO BID, #14 FOR MUSCLE SPASMS Prescribed by: JOSE ANTONIO WILEY on 7/17/17 0157 Oxycodone HCl 30 Mg Tablet, 30 MG PO BID PRN for SEVERE PAIN, (Reported) Oxycodone HCl/Acetaminophen 1 Each Tablet, 1 TAB PO Q4H, (Reported) Promethazine HCl 12.5 Mg Tablet, 12.5 MG PO Q6H PRN for NAUSEA/VOMITING-2ND LINE , (Reported) Promethazine HCl 25 Mg Supp.rect, 25 MG RC Q4H, #10 Prescribed by: JOSE ANTONIO WILEY on 01/30/17156 Sertraline HCl 100 Mg Tablet, 100 MG PO 1600, (Reported) Sulfamethoxazole/Trimethoprim 1 Each Tablet, 1 EACH PO BID, #30 Prescribed by: JOSE ANTONIO WILEY on 01/30/17156 Temazepam 30 Mg Capsule, 30 MG PO HS, (Reported) Review of Systems Constitutional: see HPI, No chills, No fever EENTM: No Symptoms Reported Respiratory: No Symptoms Reported Cardiovascular: No Symptoms Reported Gastrointestinal: Denies Nausea, Denies Vomiting Genitourinary: No Symptoms Reported Musculoskeletal: no symptoms reported Skin: no symptoms reported Psychiatric/Neurological: No Symptoms Reported All Other Systems Reviewed Negative Unless Noted: Yes Past Mjpsjdw-Iteajv-Jlhmpv Hx Patient Social History Alcohol Use: Denies Use Recreational Drug Use: No Smoking Status: Never a Smoker 2nd Hand Smoke Exposure: No Recent Foreign Travel: No Contact w/Someone Who Travel: No Recent Infectious Disease Expo: No Recent Hopitalizations: No Physical Abuse: No Sexual Abuse: No Immunizations Up To Date Tetanus Booster (TDap): Unknown PED Vaccines UTD: No Seasonal Allergies Seasonal Allergies: No Surgeries History of Surgeries: Yes Surgeries: Abdominal, Bladder Surgery, Bowel Surgery, Cystectomy, Orthopedic, Rectal, Renal, Vascular Surgery Respiratory History of Respiratory Disorde: No Currently Using CPAP: No Currently Using BIPAP: No Cardiovascular History of Cardiac Disorders: Yes Cardiac Disorders: Hypertension Neurological History of Neurological Disord: Yes Neurological Disorders: Headaches /Migraines Reproductive System Hx Reproductive Disorders: Yes (E.D.) Sexually Transmitted Disease: No HIV/AIDS: No Genitourinary History of Genitourinary Disor: Yes Genitourinary Disorders: Neurogenic Bladder, UTI-Chronic Gastrointestinal History of Gastrointestinal Di: Yes (chronic abdominal pain) Gastrointestinal Disorders: Gastroesophageal Reflux, Gastrointestinal Bleed, Obstructive Bowel, Chronic Diarrhea, C-Diff, Hiatal Hernia Musculoskeletal History of Musculoskeletal Dis: No Endocrine History of Endocrine Disorders: No HEENT History of HEENT Disorders: No Loss of Vision: Denies Hearing Impairment: Denies Cancer History of Cancer: Yes (RECTAL CANCER DX 11/2012--S/P SURGERY, CHEMO AND RADIATION) Cancer: Bladder, Rectal Did You Recieve Any Treatments: Yes Type of Tx Receive: Chemotherapy, Radiation, Surgical Intervention Psychosocial History of Psychiatric Problem: Yes Behavioral Health Disorders: Anxiety, Depression Suicide Risk Score: 0 Integumentary History of Skin or Integumenta: No Blood Transfusions History of Blood Disorders: No Adverse Reaction to a Blood Tr: No Reviewed Nursing Assessment Reviewed/Agree w Nursing PMH: Yes Family Medical History Family Medial History: Cataract 03 FATHER, Onset:Unknown Chest pain 03 FATHER, Onset:50's - 60 Family history: Allergy 03 MOTHER Family history: Arthritis 03 FATHER 03 MOTHER Family history: Asthma 03 MOTHER Family history: Cardiovascular disease 03 FATHER Family history: Diabetes mellitus 03 FATHER 03 MOTHER Family history: Hypertension 03 FATHER 03 MOTHER Headache 03 FATHER 03 MOTHER Heart disease 03 FATHER History of - respiratory disease 03 MOTHER Hypercholesterolemia 03 FATHER 03 MOTHER Kidney disease 03 MOTHER Psychotic disorder 03 MOTHER Visual impairment 03 FATHER 03 MOTHER Physical Exam Vital Signs VS - Last 72 Hours, by Label 04/18/17 06:40 Temp 96.9 Pulse 88 Resp 20 B/P (MAP) 147/101 Pulse Ox 97 O2 Delivery Room Air Capillary Refill : Less Than 3 Seconds General Appearance: WD/WN, mild distress (nausea) HEENT: PERRL/EOMI, pharynx normal Neck: full range of motion, supple Respiratory: lungs clear, normal breath sounds Cardiovascular: regular rate, rhythm, no murmur Gastrointestinal: soft, tenderness (mild lower tenderness bilaterally.), other (left sided urostomy bag with yellow urine and some sediment) Extremities: non-tender, normal inspection Back: normal inspection, no CVA tenderness, no vertebral tenderness Neurologic/Psychiatric: alert, oriented x 3 Skin: normal color, warm/dry Progress/Results/Core Measures Results/Orders Lab Results Laboratory Tests Test 04/18/17 06:49 Range/Units White Blood Count 17.2 H 4.3-11.0 10^3/uL Red Blood Count 6.04 H 4.35-5.85 10^6/uL Hemoglobin 17.1 13.3-17.7 G/DL Hematocrit 50 40-54 % Mean Corpuscular Volume 82 80-99 FL Mean Corpuscular Hemoglobin 28 25-34 PG Mean Corpuscular Hemoglobin Concent 34 32-36 G/DL Red Cell Distribution Width 13.7 10.0-14.5 % Platelet Count 559 H 130-400 10^3/uL Mean Platelet Volume 10.2 7.4-10.4 FL Neutrophils (%) (Auto) 77 H 42-75 % Lymphocytes (%) (Auto) 17 12-44 % Monocytes (%) (Auto) 6 0-12 % Eosinophils (%) (Auto) 0 0-10 % Basophils (%) (Auto) 0 0-10 % Neutrophils # (Auto) 13.3 H 1.8-7.8 X 10^3 Lymphocytes # (Auto) 2.9 1.0-4.0 X 10^3 Monocytes # (Auto) 0.9 0.0-1.0 X 10^3 Eosinophils # (Auto) 0.0 0.0-0.3 10^3/uL Basophils # (Auto) 0.0 0.0-0.1 10^3/uL Neutrophils % (Manual) 81 % Lymphocytes % (Manual) 6 % Monocytes % (Manual) 7 % Eosinophils % (Manual) 1 % Basophils % (Manual) 0 % Band Neutrophils 0 % Reactive Lymphocytes 5 % Blood Morphology Comment NORMAL Sodium Level 140 135-145 MMOL/L Potassium Level 3.3 L 3.6-5.0 MMOL/L Chloride Level 104 98-107 MMOL/L Carbon Dioxide Level 21 21-32 MMOL/L Anion Gap 15 H 5-14 MMOL/L Blood Urea Nitrogen 16 7-18 MG/DL Creatinine 1.52 H 0.60-1.30 MG/DL Estimat Glomerular Filtration Rate 49 BUN/Creatinine Ratio 11 Glucose Level 123 H 70-105 MG/DL Calcium Level 9.8 8.5-10.1 MG/DL Total Bilirubin 1.0 0.1-1.0 MG/DL Aspartate Amino Transf (AST/SGOT) 39 H 5-34 U/L Alanine Aminotransferase (ALT/SGPT) 57 H 0-55 U/L Alkaline Phosphatase 93 40-136 U/L Total Protein 8.7 H 6.4-8.2 GM/DL Albumin 4.8 H 3.2-4.5 GM/DL Amylase Level 114 25-125 U/L Lipase 36 8-78 U/L My Orders Orders - WAYLON TAYLOR MD Amylase (04/18/17 06:49) Cbc With Automated Diff (04/18/17 06:49) Comprehensive Metabolic Panel (04/18/17 06:49) Lipase (04/18/17 06:49) Saline Lock/Iv-Start (04/18/17 06:49) Ns Iv 1000 Ml (Sodium Chloride 0.9%) (04/18/17 06:49) Promethazine Injection (Phenergan Injec (04/18/17 06:49) Fentanyl Injection (Sublimaze Injection (04/18/17 06:49) Manual Differential (04/18/17 06:49) Medications Given in ED Current Medications Medications Dose Ordered Sig/Kenny Route Start Time Stop Time Status Last Admin Dose Admin Sodium Chloride 1,000 ml @ 0 mls/hr Q0M ONCE IV 04/18/17 06:49 04/18/17 06:52 DC 04/18/17 07:06 1,000 MLS/HR Vital Signs/I&O Vital Sign - Last 12Hours 04/18/17 06:40 Temp 96.9 Pulse 88 Resp 20 B/P (MAP) 147/101 Pulse Ox 97 O2 Delivery Room Air Blood Pressure Mean: 116 Progress Note : Progress Note Seen and evaluated. IV, labs, normal saline 1 L bolus, fentanyl 100 g IV and Phenergan 25 mg IV ordered. Monitor patient. 0745: Patient doesn't better. White count is elevated although I believe this is related to dehydration and vomiting. Patient is improved. Anticipate discharge completion of fluids. Patient states he has his medicines at home and does not need scripts. Departure Impression Impression: Primary Impression: Nausea vomiting and diarrhea Disposition: 01 HOME, SELF-CARE Condition: Stable Departure-Patient Inst. Decision time for Depature: 07:54 Referrals: NIKHIL PITTS DO (PCP) Primary Care Physician LINDA BENTLEY (Family) Primary Care Physician Patient Instructions: Diarrhea in Adolescents and Adults, Nausea and Vomiting, Adult (DC) Add. Discharge Instructions: All discharge instructions reviewed with patient and/or family. Voiced understanding. Clear liquid diet for 24 hours and then advance as tolerated. Follow-up with your DrJaclyn in one to 2 days for recheck and further evaluation. Return for worse pain, fever, vomiting, weakness, breathing problems or other concerns as needed. WAYLON TAYLOR MD Apr 18, 2017 07:55
[2017-04-18 08:49] VITALS: BP 134/101
== END 2017-04-18 08:45 | disposition home or self-care (01) ==
LOC: EDUNIT# 06:35 → ER 06:39
DX: F32.9 Major depressive disorder, single episode, unspecified; G43.909 Migraine, unspecified, not intractable, without status migrainosus; F41.9 Anxiety disorder, unspecified; Z85.048 Personal history of other malignant neoplasm of rectum, rectosigmoid junction, and anus; K21.9 Gastro-esophageal reflux disease without esophagitis; I10 Essential (primary) hypertension; R11.2 Nausea with vomiting, unspecified; R19.7 Diarrhea, unspecified; Z92.21 Personal history of antineoplastic chemotherapy; Z85.59 Personal history of malignant neoplasm of other urinary tract organ
CPT/HCPCS: 36415; 80053; 82150; 83690; 85007; 85027; 96361; 96374; 96375

== ENCOUNTER 2017-04-25 08:10 | Emergency (ER) | payer MEDICARE, MEDICAID ==
[~2017-04-25] VITALS: Ht 170.2 cm; Wt 83.9 kg
[2017-04-25] MEDS ORDERED: NS IV 1000 ML 1,000 ML IV ONE (08:19)
[2017-04-25] MEDS ORDERED: NS 100 ML (IVPB) BAG IV ONE (08:30)
[2017-04-25] MEDS ORDERED: fentaNYL INJECTION 100 MCG/2 ML AMP IVP ONE (08:30)
[2017-04-25] MEDS ORDERED: IOHEXOL 350 MG/ML 100 ML (OMNIPAQUE 350) VIAL IV ONE (08:30)
[2017-04-25 08:42] LABS: MEAN PLATELET VOLUME 10.6 FL (7.4-10.4); RED BLOOD COUNT 5.15 10^6/uL (4.35-5.85); RED CELL DISTRIBUTION WIDTH 13.2 % (10.0-14.5)
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
[2017-04-25 09:05] LABS: ALANINE AMINOTRANSFERASE 34 U/L (0-55); ALCOHOL < 10 MG/DL (<10); ANION GAP 10 MMOL/L (5-14); ASPARTATE AMINO TRANSFERASE 23 U/L (5-34); BILIRUBIN,DIRECT 0.2 MG/DL (0.0-0.3); BILIRUBIN,INDIRECT 0.1 MG/DL; BILIRUBIN,TOTAL 0.3 MG/DL (0.1-1.0); BLOOD UREA NITROGEN 18 MG/DL (7-18); BUN/CREATININE RATIO 14; CARBON DIOXIDE 25 MMOL/L (21-32); CHLORIDE 103 MMOL/L (98-107); CREATININE SERUM 1.28 MG/DL (0.60-1.30); GFR ESTIMATED 59; GLUCOSE 122 MG/DL (70-105); POTASSIUM 2.9 MMOL/L (3.6-5.0); SODIUM 138 MMOL/L (135-145)
--- NOTE | 2017-04-25 09:08 | Diagnostic Imaging Report ---
PROCEDURE: CT head and CT cervical spine without contrast. TECHNIQUE: Multiple contiguous axial images were obtained through the brain and cervical spine without the use of intravenous contrast. Sagittal and coronal reformations through the cervical spine were then performed. INDICATION: Trauma. FINDINGS: CT HEAD: There is no intracranial hemorrhage, edema, or mass effect. The brain parenchyma and moscoso/white matter differentiation are preserved. No hydrocephalus. No extra-axial fluid collection is seen. The calvarium, paranasal sinuses, and orbits (visualized portions) appear unremarkable. CT CERVICAL SPINE: There is satisfactory alignment of the posterior spinal line and of the facet joints. There is no widening of the predental space. The lateral masses of C1 and C2 have normal alignment as well as normal alignment at the atlantooccipital joints. There are preserved vertebral body heights and disc heights. There are posterior osteophytes, prominent at the C5-6 and minimally at the C6-7 levels. No fracture is seen. A right internal jugular venous catheter is noted. IMPRESSION: CT HEAD: No intracranial hemorrhage. CT CERVICAL SPINE: No fracture is seen. Dictated by: Dictated on workstation # [id number]
[2017-04-25 09:23] LABS: BILIRUBIN,URINE NEGATIVE (NEGATIVE); KETONES,URINE NEGATIVE (NEGATIVE); LEUKOCYTE ESTERASE ,URINE 3+ (NEGATIVE); NITRITE,URINE NEGATIVE (NEGATIVE); PH,URINE 6.5 (5-9); PROTEIN,URINE 1+ (NEGATIVE); UROBILINOGEN,URINE NORMAL (NORMAL)
--- NOTE | 2017-04-25 09:23 | Diagnostic Imaging Report ---
EXAMINATION: Left humerus two views. FINDINGS: There is a displaced and angulated fracture in a spiral fashion involving the distal shaft of the left humerus. The proximal and distal joints appear grossly unremarkable. No radiopaque foreign body seen. IMPRESSION: Displaced and angulated spiral fracture of the distal left humerus shaft. Dictated by: Dictated on workstation # [id number]
[2017-04-25] MEDS ORDERED: HYDROmorphone (DILAUDID) 2 MG/ML VIAL ONE (09:27)
--- NOTE | 2017-04-25 09:33 | Diagnostic Imaging Report ---
PROCEDURE: CT chest, abdomen, and pelvis with contrast. TECHNIQUE: Multiple contiguous axial images were obtained through the chest, abdomen, and pelvis after the administration of intravenous contrast. INDICATION: Trauma. 75 mL of Omnipaque 350 is administered intravenously. FINDINGS: CT chest: There is an infusion port through the right internal jugular vein on the right side with the tip at the SVC level. There is a 4-mm nodule at the minor fissure. Another nodule in the right middle lobe measuring 8 mm is also seen. These are stable from prior exams compatible with scarring. There is no significant consolidation, mass, or suspicious nodule. No pericardial or pleural effusion. The heart size is normal. The thoracic aorta is normal in caliber. No significantly enlarged mediastinal or hilar lymph node seen. No axillary lymphadenopathy is noted. The osseous structures demonstrate no significant abnormality. CT abdomen and pelvis: The liver demonstrates mild fatty infiltration with slightly hyperdense areas in the liver around the gallbladder bed likely related to fatty sparing focally. The gallbladder, the spleen, the pancreas, and the adrenal glands appear unremarkable. The kidneys have symmetric enhancement and contrast excretion. 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 The ureteric anastomosis into the ileal conduit and the bowel loop itself leading to the stoma in the left lower quadrant appear intact. The abdominal aorta is normal in caliber. No periaortic significantly enlarged lymph node is seen. No hemorrhage or free fluid is noted in the abdomen or pelvis. There are surgical sutures seen along the rectum. The presacral soft tissues appear thickened which are stable from prior exam likely related to scarring from prior surgery and potentially from prior radiation. There is thickening in the sigmoid colon area. This could be related to nonspecific colitis. No significant pericolonic inflammatory changes however seen. ? The osseous structures appear grossly unremarkable. IMPRESSION: CT chest: Stable nodules in the right middle lobe up to 8 mm in size are suggestive of scarring. No acute process. CT abdomen and pelvis: 1. There is thickening in the sigmoid colon area which could relate to inflammatory or infectious colitis. 2. No hematoma or solid organ injury is seen in the abdomen or pelvis. Dictated by: Dictated on workstation # [id number]
[2017-04-25] MEDS ORDERED: HYDROmorphone (DILAUDID) 2 MG/ML VIAL IVP STA ×2 (09:34→10:54)
[2017-04-25 09:39] LABS: WBC,URINE >100 /HPF
[2017-04-25] MEDS ORDERED: NS W/KCL 40 MEQ/L 1,000 ML IV SCH (10:15)
[2017-04-25] MEDS ORDERED: LORazepam INJ 2 MG/ML (ATIVAN) VIAL ONE (10:58)
[2017-04-25] MEDS ORDERED: KCL 10 MEQ TAB (MICRO K) PO ONE (11:00)
[2017-04-25] MEDS ORDERED: oxyCODONE/APAP 5/325MG (PERCOCET 5) TABLET PO ONE (11:00)
[2017-04-25] MEDS ORDERED: ORPHENADRINE 60 MG/2 ML (NORFLEX) AMP ONE (11:09)
[2017-04-25] MEDS ORDERED: LORazepam INJ 2 MG/ML (ATIVAN) VIAL IVP ONE (11:15)
[2017-04-25] MEDS ORDERED: OXYC-197 PO (11:32)
[2017-04-25 13:00] VITALS: BP 137/82
== END 2017-04-25 13:00 | disposition home or self-care (01) ==
LOC: EDUNIT# 08:12 → ER 08:17
DX: S42.342A Displaced spiral fracture of shaft of humerus, left arm, initial encounter for closed fracture (principal); G43.909 Migraine, unspecified, not intractable, without status migrainosus; I10 Essential (primary) hypertension; F41.9 Anxiety disorder, unspecified; F32.9 Major depressive disorder, single episode, unspecified; K21.9 Gastro-esophageal reflux disease without esophagitis; Z85.048 Personal history of other malignant neoplasm of rectum, rectosigmoid junction, and anus; Z92.3 Personal history of irradiation; Z92.21 Personal history of antineoplastic chemotherapy; Z87.11 Personal history of peptic ulcer disease; Z87.440 Personal history of urinary (tract) infections; Z82.49 Family history of ischemic heart disease and other diseases of the circulatory system; V48.5XXA Car driver injured in noncollision transport accident in traffic accident, initial encounter; Y92.410 Unspecified street and highway as the place of occurrence of the external cause
CPT/HCPCS: 29105; 36415; 70450; 71010; 71260; 72125; 72170; 73060; 74177; 80048; 80076; 80320; 81000; 85027; 87077; 87088; 87186; 93041

== ENCOUNTER 2017-05-06 20:52 | Emergency (ER) | payer MEDICARE, MEDICAID ==
[~2017-05-06] VITALS: Ht 170.2 cm; Wt 83.9 kg
[~2017-05-06 20:52] MED LIST changes: +OXYC-197 PO
--- OUTSIDE RECORDS SUMMARY | 2017-05-06 20:58 | XMS REPORT | Clinical Summary ---
Author Author [facility] Organization [facility] Address Unknown Phone Unavailable Care Team Providers Care Saute Chef Name Role Phone PCP Unavailable Source Comments Some departments are not documenting in the electronic medical record. If you do not see the information that you expected, contact Release of Information in the Health Information Management department at [phone] for further assistance in locating additional records.[facility] Allergies Active Allergy Reactions Severity Noted [...] retention 02/10/2014 Rectal cancer (HCC) 02/10/2014 Overview: [id number] S/p brain-adjuvant chemo/XRT S/p LAR with diverting [...] 1983 COLORECTAL CANCER 2016 SCREENING INFLUENZA VACCINE 02/14/2017 Results Not on filefrom Last 3 Months
--- OUTSIDE RECORDS SUMMARY | 2017-05-06 21:09 | XMS REPORT ---
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 338935136 Problem Primary insomnia F51.01 Active 561285016 Problem Chronic fatigue, unspecified R53.82 Active 186763706 Problem Polyneuropathy G62.9 Active 53535387 Problem Anxiety F41.9 Active 61322382 Problem Hypertension, benign I10 Active 15009041 Problem Abdominal pain, left lower quadrant R10.32 Active 946818195 Problem Neuropathy G62.9 Active 392212492 Problem Mood disorder F39 Active 23547904 ALLERGIES No Information SOCIAL HISTORY Never Assessed PLAN OF CARE VITAL SIGNS MEDICATIONS Medication Instructions Dosage Frequency Start Date End Date Duration Status Zoloft 100 Orally Once a day 1 tablet 24h 30 Active Oxycodone HCl 30 MG Orally 2 times a day 1 tablet as needed 12h Sep, 28 days Active Percocet 10-325 MG Orally every 4 hrs 1 tablet 4h 27 Aug, 2016 28 days Active Gabapentin 600 MG 2 tablet 8h Active Ciprofloxacin HCl 500 MG Orally Twice a day 1 tablet 12h Sep, Sep, Active Klonopin 2 MG Orally 3 times a day as needed 1 tablet 30 Sep, 2014 28 days Active RESULTS No Results PROCEDURES [...] rectal cancer 12/06/12 Surgical History bladder removal 2013 Hospitalization History abd pain anemia, recurrent UTI 10/15/13 Hospitalization History colon resection with ileostomy by dr. Cook d/t rectal cancer Hospitalization History Intractable n/v, chronic, abd pain, acute renal 03/27 Hospitalization History ER [facility] for dizziness and nausea 12/07/15 Hospitalization History UTI, AMS-[facility] 09/21/16 Hospitalization History Large bowel obstruction, Dehydration-[facility] 01/01/17
--- OUTSIDE RECORDS SUMMARY | 2017-05-06 21:10 | XMS REPORT ---
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 718764241 Problem Primary insomnia F51.01 Active 815318277 Problem Chronic fatigue, unspecified R53.82 Active 110082200 Problem Polyneuropathy G62.9 Active 90773303 Problem Anxiety F41.9 Active 28745219 Problem Hypertension, benign I10 Active 59892971 Problem Abdominal pain, left lower quadrant R10.32 Active 204942944 Problem Neuropathy G62.9 Active 073768457 Problem Mood disorder F39 Active 49998525 ALLERGIES Substance Reaction Event Type Date Status Morphine Unknown Drug Allergy Mar, Active Codeine Unknown Drug Allergy Mar, Active SOCIAL HISTORY Never Assessed PLAN OF CARE VITAL SIGNS Height 67 in 2016-04-08 Weight 199.3 lbs 2016-04-08 Temperature 98.4 degrees Fahrenheit 2016-04-08 Heart Rate 84 bpm 2016-04-08 Respiratory Rate 20 2016-04-08 BMI 31.21 kg/m2 2016-04-08 Blood pressure systolic 136 mmHg 2016-04-08 Blood pressure diastolic 82 mmHg 2016-04-08 MEDICATIONS Medication Instructions Dosage Frequency Start Date End Date Duration Status Zofran 4 MG Orally Once a day 2 tablets 24h Active Promethazine HCl 50 mg Orally 3 times a day 1 tablet 8h Aug, Mar, 30 day(s) Active Gabapentin 600 MG 2 tablet 8h Active Iron 325 (65 Fe) MG Orally twice a day 1 tablet 12h Active Lomotil 2.5-0.025 MG Orally Four times a day 1 tablet as needed 6h Aug, Active Oxycodone HCl 30 MG Orally 2 times a day 1 tablet as needed 12h 14 Apr, 2015 Active Klonopin 2 MG Orally 3 times a day as needed 1 tablet Sep, Active Protonix 40 mg 1 tablet 24h Sep, Active Zoloft 100 MG 1 tablet 24h 16 Jul, 2014 Active Acyclovir 400 MG TAKE ONE TABLET BY MOUTH TWICE DAILY FOR 7 DAYS 7 Active Doxepin HCl 100 MG Orally Once a day 2 capsules at bedtime 24h 30 Active Meclizine HCl 25 MG Orally Once a day 1 tablet as needed 24h Active Cetirizine HCl 10 mg Orally Once a day 1 tablet 24h Dec, May, 30 day(s) Active Percocet 10-325 MG 1 tablet 4h Sep, Active Lyrica 150 MG Orally Twice a day 1 capsule 12h 12 Jun, 2014 Active RESULTS No Results PROCEDURES Procedure Date Ordered Result Body Site [facility] VISIT ESTABLISHED PATIENT Apr 08, 2016 IMMUNIZATIONS No Known Immunizations MEDICAL (GENERAL) [...]
--- NOTE | 2017-05-06 21:52 | Diagnostic Imaging Report ---
INDICATION: Left arm pain after dropping 2 liter soda and trying to catch it. TECHNIQUE: Two views of the left humerus, 9:45 p.m. CORRELATION STUDY: 04/25/2017. FINDINGS: There is internal fixation hardware transfixing a previously noted obliquely oriented distal humerus shaft fracture. Currently I have no post fixation radiographs available; however, the fracture line is still visualized with slight diastases present. Alignment is otherwise near anatomic. Remainder of the humerus, including shoulder and elbow, appear relatively unremarkable. IMPRESSION: Internally fixed distal humerus fracture. There is some diastases along the major fracture line. It is indeterminate whether this is stable postoperative or perhaps changed. If available, correlation with previous postoperative views is recommended. Dictated by: Dictated on workstation # [id number]
--- NOTE | 2017-05-06 21:55 | Diagnostic Imaging Report ---
INDICATION: Left arm pain after dropping a 2 liter soda bottle and trying to catch it. TECHNIQUE: Three views of the left elbow. CORRELATION STUDY: None. FINDINGS: There is a internal fixation hardware transfixing a comminuted distal humerus shaft fracture. There is diastases along the major fracture lines. This is likely post fixation changes. The possibility of some separation acutely is not excluded. At the level of the elbow, there is no acute bony abnormality. There is presence of soft tissue swelling, distally. IMPRESSION: Interval fixation hardware for comminuted distal humerus fracture. Slight diastases along the major fracture lines is likely a postoperative finding. Possibility of some increased diastases, however, cannot be assessed given no prior studies for comparison. Dictated by: Dictated on workstation # [id number]
[2017-05-06] MEDS ORDERED: ONDA8TAB9 PO (22:04)
--- NOTE | 2017-05-06 22:04 | ED Upper Extremity ---
General Chief Complaint: Upper Extremity Stated Complaint: ARM PAIN Nursing Triage Note: c/o L arm pain after dropping 2 liter pop and trying to catch it Nursing Sepsis Screen: No Definite Risk Allergies and Home Medications Allergies Coded Allergies: morphine (Verified Allergy, Intermediate, 01/01/17) codeine (Verified Adverse Reaction, Unknown, NAUSEA, 01/01/17) Home Medications Diazepam 10 Mg Tablet, 10 MG PO HS PRN for INSOMNIA/ANXIETY, (Reported) Gabapentin 600 Mg Tablet, 1,200 MG PO TID, (Reported) TAKES 2 (600MG) TABLETS Metoclopramide HCl 5 Mg Tablet, 5 MG PO QID PRN for NAUSEA/VOMITING-1ST LINE, # 10 Prescribed by: SHAY BILLINGS on 01/12/17 0726 Ondansetron 8 Mg Tab.rapdis, 8 MG PO Q4H, #14 Prescribed by: JOSE ANTONIO WILEY on 01/30/17 0157 Orphenadrine Citrate 100 Mg Tablet.er, 100 MG PO BID, #14 FOR MUSCLE SPASMS Prescribed by: JOSE ANTONIO WILEY on 01/30/17 0157 Oxycodone HCl 30 Mg Tablet, 30 MG PO BID PRN for SEVERE PAIN, (Reported) Oxycodone HCl/Acetaminophen 1 Each Tablet, 1 TAB PO Q4H, (Reported) Oxycodone HCl/Acetaminophen 1 Each Tablet, 1-2 EACH PO Q4H PRN for PAIN- MODERATE TO SEVERE, #30 Prescribed by: SHAY BILLINGS on 04/25/17 1132 Promethazine HCl 12.5 Mg Tablet, 12.5 MG PO Q6H PRN for NAUSEA/VOMITING-2ND LINE , (Reported) Promethazine HCl 25 Mg Supp.rect, 25 MG RC Q4H, #10 Prescribed by: JOSE ANTONIO WILEY on 01/30/17 0157 Sertraline HCl 100 Mg Tablet, 100 MG PO 1600, (Reported) Temazepam 30 Mg Capsule, 30 MG PO HS, (Reported) Past Ipzshpk-Vwghwe-Hhwwsd Hx Patient Social History Alcohol Use: Denies Use Recreational Drug Use: No 2nd Hand Smoke Exposure: No Recent Foreign Travel: No Contact w/Someone Who Travel: No Recent Infectious Disease Expo: No Recent Hopitalizations: No Physical Abuse: No Sexual Abuse: No Immunizations Up To Date Tetanus Booster (TDap): Unknown PED Vaccines UTD: No Seasonal Allergies Seasonal Allergies: No Surgeries History of Surgeries: Yes (urostomy) Surgeries: Abdominal, Bladder Surgery, Bowel Surgery, Cystectomy, Orthopedic, Rectal, Renal, Vascular Surgery Respiratory History of Respiratory Disorde: No Currently Using CPAP: No Currently Using BIPAP: No Cardiovascular History of Cardiac Disorders: Yes Cardiac Disorders: Hypertension Neurological History of Neurological Disord: Yes Neurological Disorders: Headaches /Migraines Reproductive System Hx Reproductive Disorders: Yes (E.D.) Sexually Transmitted Disease: No HIV/AIDS: No Genitourinary History of Genitourinary Disor: Yes Genitourinary Disorders: Neurogenic Bladder, UTI-Chronic Gastrointestinal History of Gastrointestinal Di: Yes (chronic abdominal pain) Gastrointestinal Disorders: Gastroesophageal Reflux, Gastrointestinal Bleed, Obstructive Bowel, Chronic Diarrhea, C-Diff, Hiatal Hernia Musculoskeletal History of Musculoskeletal Dis: No Endocrine History of Endocrine Disorders: No HEENT History of HEENT Disorders: No Loss of Vision: Denies Hearing Impairment: Denies Cancer History of Cancer: Yes (RECTAL CANCER DX 11/2012--S/P SURGERY, CHEMO AND RADIATION) Cancer: Bladder, Rectal Did You Recieve Any Treatments: Yes Type of Tx Receive: Chemotherapy, Radiation, Surgical Intervention Psychosocial History of Psychiatric Problem: Yes Behavioral Health Disorders: Anxiety, Depression Suicide Risk Score: 0 Integumentary History of Skin or Integumenta: No Blood Transfusions History of Blood Disorders: No Adverse Reaction to a Blood Tr: No Family Medical History Family Medial History: Cataract 03 FATHER, Onset:Unknown Chest pain 03 FATHER, Onset:50's - 60 Family history: Allergy 03 MOTHER Family history: Arthritis 03 FATHER 03 MOTHER Family history: Asthma 03 MOTHER Family history: Cardiovascular disease 03 FATHER Family history: Diabetes mellitus 03 FATHER 03 MOTHER Family history: Hypertension 03 FATHER 03 MOTHER Headache 03 FATHER 03 MOTHER Heart disease 03 FATHER History of - respiratory disease 03 MOTHER Hypercholesterolemia 03 FATHER 03 MOTHER Kidney disease 03 MOTHER Psychotic disorder 03 MOTHER Visual impairment 03 FATHER 03 MOTHER No Family History of: Abdominal aortic aneurysm Axtell's disease Alcoholism Aphasia Cancer Cancer of colon Congenital heart disease Congestive heart failure Cystic fibrosis Dementia Dysphagia Family history: Alzheimer's disease Family history: Breast disease Family history: Coronary thrombosis Family history: Gastrointestinal disease Family history: Glaucoma Family history: Osteoporosis Family history: Thyroid disorder Hearing loss Hereditary disease History of - anemia History of - disorder History of drug abuse Human immunodeficiency virus (HIV) seropositivity Infertile Malignant neoplasm of lung Myocardial infarction Parkinson's disease Prostate cancer Seizure disorder Stroke Tuberculosis Physical Exam Vital Signs Vital Sign - Last 12Hours 05/06/17 21:02 Temp 98.4 Pulse 113 Resp 18 B/P (MAP) 138/95 Pulse Ox 96 Capillary Refill : Less Than 3 Seconds Progress/Results/Core Measures Results/Orders My Orders Orders - JOSE ANTONIO WILEY DO Humerus, Left, 2 Views (05/06/17 21:06) Elbow, Left, 3 Views (05/06/17 21:06) Vital Signs/I&O Vital Sign - Last 12Hours 05/06/17 21:02 Temp 98.4 Pulse 113 Resp 18 B/P (MAP) 138/95 Pulse Ox 96 Blood Pressure Mean: 109 Departure Impression Impression: Primary Impression: Strain of left upper arm Additional Impression: Post-op pain Disposition: 01 HOME, SELF-CARE Condition: Stable Departure-Patient Inst. Referrals: NIKHIL PITTS DO (PCP) Primary Care Physician LINDA BENTLEY (Family) Primary Care Physician PEREZ MERCADO MD Patient Instructions: How to Use a Shoulder Sling, Upper Arm Fracture Add. Discharge Instructions: WEAR SLING AT ALL TIMES ICE TO AREA AT 20 MINUTE INTERVALS TAKE YOUR HOME MEDICATIONS FOR PAIN PRESCRIBED FOLLOW UP WITH DR. MERCADO ON MONDAY SCHEDULED All discharge instructions reviewed with patient and/or family. Voiced understanding. Scripts Ondansetron (Zofran Odt) 8 Mg Tab.rapdis 8 MG PO Q4H for Nausea/Vomiting, #14 TAB Prov: JOSE ANTONIO WILEY DO 05/06/17 JOSE ANTONIO WILEY DO May 06, 2017 22:04
[2017-05-06] MEDS ORDERED: RX-ONDANSETRON 4 MG ODT (ZOFRAN) PPK #4 PO STA (22:05)
[2017-05-06 22:20] VITALS: BP 138/95
== END 2017-05-06 22:20 | disposition home or self-care (01) ==
LOC: EDUNIT# 20:52 → ER 20:53
DX: S46.912A Strain of unspecified muscle, fascia and tendon at shoulder and upper arm level, left arm, initial encounter (principal); G89.18 Other acute postprocedural pain; F41.9 Anxiety disorder, unspecified; Z82.49 Family history of ischemic heart disease and other diseases of the circulatory system; X50.0XXA Overexertion from strenuous movement or load, initial encounter
CPT/HCPCS: 73060; 73080; 99283

== ENCOUNTER → 2017-09-08 | Outpatient (CLI) | payer MEDICARE, MEDICAID ==
[~2017-09-08] MED LIST changes: +ASPI-789 PO; -ASPI1TAB22 PO
[2017-09-08] MEDS: BARIUM SUSPENSION 2.1% (VANILLA SILQ) 450 ML PO ONE (10:06)
[2017-09-08] MEDS: IOHEXOL 350 MG/ML 100 ML (OMNIPAQUE 350) VIAL IV ONE (10:06)
[2017-09-08] MEDS: NS 250 ML (IVPB) BAG IV ONE (10:06)
--- NOTE | 2017-09-08 10:56 | Diagnostic Imaging Report ---
PROCEDURE: CT abdomen and pelvis with contrast. TECHNIQUE: Multiple contiguous axial images were obtained through the abdomen and pelvis after administration of intravenous contrast. INDICATION: Elevated liver enzymes. Patient has history of rectal carcinoma. COMPARISON: Comparison is made with prior CT from 04/25/2017. FINDINGS: The lung bases are clear. The liver again demonstrates generalized low density consistent with hepatic steatosis. No discrete liver mass is identified. The gallbladder is unremarkable. The pancreas and spleen are unremarkable. No adrenal mass is identified. The kidneys are unremarkable. The aorta is non-aneurysmal. No central retroperitoneal or mesenteric lymphadenopathy is seen. Postsurgical changes of cystectomy with ileal conduit and left lower quadrant ostomy is again seen. Postsurgical changes to the rectum are again noted. Pre-sacral soft tissue thickening persists and is similar to prior exam, likely post-therapeutic. No definite pelvic lymphadenopathy is identified. There is no ascites. Bowel loops are of normal caliber. IMPRESSION: Overall stable CT of the abdomen and pelvis when compared with prior exam from 04/25/2017. There is hepatic steatosis but no discrete liver mass is identified. Postsurgical and post-therapeutic changes in the abdomen and pelvis are again noted and appear stable. Dictated by: Dictated on workstation # [id number]
== END ==
LOC: RAD 09:52
PROVIDERS: ATTEND Internal Medicine Hematology & Oncology
DX: K76.0 Fatty (change of) liver, not elsewhere classified (principal); R74.8 Abnormal levels of other serum enzymes; Z90.6 Acquired absence of other parts of urinary tract; Z93.8 Other artificial opening status; Z85.048 Personal history of other malignant neoplasm of rectum, rectosigmoid junction, and anus
CPT/HCPCS: 74177

== ENCOUNTER 2017-09-13 13:26 | Outpatient (RCR) | payer MEDICARE, MEDICAID ==
[2017-09-05 13:12] LABS: BASOPHILS % (AUTO) 0 % (0-10); EOSINOPHILS # (AUTO) 0.1 10^3/uL (0.0-0.3); EOSINOPHILS % (AUTO) 2 % (0-10); HEMATOCRIT 42 % (40-54); HEMOGLOBIN 15.2 G/DL (13.3-17.7); LYMPHOCYTES # (AUTO) 1.8 X 10^3 (1.0-4.0); LYMPHOCYTES % (AUTO) 23 % (12-44); MEAN CORPUSCULAR HEMOGLOBIN 29 PG (25-34); MEAN CORPUSCULAR HGB CONC 36 G/DL (32-36); MEAN CORPUSCULAR VOLUME 80 FL (80-99); MEAN PLATELET VOLUME 10.7 FL (7.4-10.4); MONOCYTES # (AUTO) 0.6 X 10^3 (0.0-1.0); MONOCYTES % (AUTO) 8 % (0-12); NEUTROPHILS # (AUTO) 5.1 X 10^3 (1.8-7.8); NEUTROPHILS % (AUTO) 67 % (42-75); PLATELET COUNT 235 10^3/uL (130-400); RED CELL DISTRIBUTION WIDTH 14.2 % (10.0-14.5); WHITE BLOOD COUNT 7.7 10^3/uL (4.3-11.0)
[2017-09-05 13:27] LABS: ALANINE AMINOTRANSFERASE 64 U/L (0-55); ALBUMIN 4.3 GM/DL (3.2-4.5); ALKALINE PHOSPHATASE 91 U/L (40-136); BILIRUBIN,TOTAL 1.2 MG/DL (0.1-1.0); BUN/CREATININE RATIO 10; CALCIUM 9.2 MG/DL (8.5-10.1); CARBON DIOXIDE 24 MMOL/L (21-32); CHLORIDE 104 MMOL/L (98-107); CREATININE SERUM 1.23 MG/DL (0.60-1.30); GFR ESTIMATED > 60; GLUCOSE 108 MG/DL (70-105); POTASSIUM 3.6 MMOL/L (3.6-5.0); SODIUM 138 MMOL/L (135-145)
== END 2017-12-04 | disposition home or self-care (01) ==
LOC: ONC 13:26
PROVIDERS: ATTEND Internal Medicine Hematology & Oncology
DX: Z08 Encounter for follow-up examination after completed treatment for malignant neoplasm (principal); Z85.048 Personal history of other malignant neoplasm of rectum, rectosigmoid junction, and anus; D50.9 Iron deficiency anemia, unspecified; F33.9 Major depressive disorder, recurrent, unspecified; G47.00 Insomnia, unspecified; N39.490 Overflow incontinence; R79.89 Other specified abnormal findings of blood chemistry; G62.89 Other specified polyneuropathies; K31.84 Gastroparesis; K21.9 Gastro-esophageal reflux disease without esophagitis; Z79.899 Other long term (current) drug therapy; Z92.3 Personal history of irradiation; Z92.21 Personal history of antineoplastic chemotherapy; Z87.440 Personal history of urinary (tract) infections
CPT/HCPCS: 36415; 80053; 82378; 85025; 99213

== ENCOUNTER 2018-01-17 00:49 | Observation (INO) | payer MEDICARE, MEDICAID ==
[~2018-01-17] VITALS: Ht 172.7 cm; Wt 91.7 kg
[2018-01-17] MEDS ORDERED: NS IV 1000 ML 1,000 ML IV SCH (00:57)
[2018-01-17] MEDS ORDERED: PROMETHAZINE INJ 25 MG/ML (PHENERGAN) AMP IVP ONE (01:00)
[2018-01-17] MEDS ORDERED: ACETAMINOPHEN 500 MG TAB (TYLENOL) PO PRN ×2 (01:00→03:15)
[2018-01-17] MEDS ORDERED: KETOROLAC 30 MG/ML VIAL IVP ONE (01:00)
--- NOTE | 2018-01-17 01:06 | ED GI ---
General Stated Complaint: SOB N/V Source of Information: Patient, Family History of Present Illness Date Seen by Provider: Jan 17, 2018 Time Seen by Provider: 00:55 Initial Comments Patient presents to the ER by EMS with chief complaint that Monday, 4-5 days ago he started feeling some nausea vomiting and malaise with body aches. He's not had any cough or fevers but he has had some chills and sweats. He has not taken any Tylenol or Motrin or other pain meds. He does not have any nausea. He did not get and see his doctor until he tried calling yesterday and they told him that his doctor was out of the clinic and he didn't want seen anyone else. He is having nausea and vomiting as intractable tonight so he called EMS. They gave him 4 mg of Zofran and said that he instantaneously claimed he felt better. They started an IV. Patient says his pain is all over in his arms and legs abdomen chest and head. He describes it as achy. He says in the past only things worker his pain is fentanyl and Phenergan. He says his nausea starting to come back. Patient also relates that he has a history of colorectal cancer with colostomy and then colostomy takedown subsequent lead. He has been having diarrhea for the past for 5 days. He has a urostomy in place. Allergies and Home Medications Allergies Coded Allergies: morphine (Verified Allergy, Intermediate, 01/01/17) codeine (Verified Adverse Reaction, Unknown, NAUSEA, 01/01/17) Home Medications Diazepam 10 Mg Tablet, 10 MG PO HS PRN for INSOMNIA/ANXIETY, (Reported) Gabapentin 600 Mg Tablet, 1,200 MG PO TID, (Reported) TAKES 2 (600MG) TABLETS Metoclopramide HCl 5 Mg Tablet, 5 MG PO QID PRN for NAUSEA/VOMITING-1ST LINE Prescribed by: SHAY BILLINGS on 01/12/17 0705 Ondansetron 8 Mg Tab.rapdis, 8 MG PO Q4H Prescribed by: JOSE ANTONIO WILEY on 01/30/17 0157 Ondansetron 8 Mg Tab.rapdis, 8 MG PO Q4H Prescribed by: JOSE ANTONIO WILEY on 05/06/17 2204 Orphenadrine Citrate 100 Mg Tablet.er, 100 MG PO BID FOR MUSCLE SPASMS Prescribed by: JOSE ANTONIO WILEY on 01/30/17156 Oxycodone HCl 30 Mg Tablet, 30 MG PO BID PRN for SEVERE PAIN, (Reported) Oxycodone HCl/Acetaminophen 1 Each Tablet, 1 TAB PO Q4H, (Reported) Oxycodone HCl/Acetaminophen 1 Each Tablet, 1-2 EACH PO Q4H PRN for PAIN- MODERATE TO SEVERE Prescribed by: SHAY BILLINGS on 04/25/17 1132 Promethazine HCl 12.5 Mg Tablet, 12.5 MG PO Q6H PRN for NAUSEA/VOMITING-2ND LINE , (Reported) Promethazine HCl 25 Mg Supp.rect, 25 MG RC Q4H Prescribed by: JOSE ANTONIO WILEY on 01/30/17156 Sertraline HCl 100 Mg Tablet, 100 MG PO 1600, (Reported) Temazepam 30 Mg Capsule, 30 MG PO HS, (Reported) Patient Home Medication List Home Medication List Reviewed: Yes Review of Systems Constitutional: No chills, No diaphoresis EENTM: No Blurred Vision, No Double Vision Respiratory: Denies Cough, Denies Shortness of Air Cardiovascular: Denies Chest Pain, Denies Edema, Denies Irregular Heart Rate Gastrointestinal: Denies Abdomen Distended, Denies Abdominal Pain Genitourinary: Denies Burning, Denies Discharge Past Jewandk-Yposls-Hqtjvc Hx Patient Social History 2nd Hand Smoke Exposure: No Recent Foreign Travel: No Contact w/Someone Who Travel: No Recent Hopitalizations: No Immunizations Up To Date Tetanus Booster (TDap): Unknown PED Vaccines UTD: No Seasonal Allergies Seasonal Allergies: No Past Medical History Surgeries: Yes Abdominal, Bladder Surgery, Bowel Surgery, Cystectomy, Orthopedic, Rectal, Renal , Vascular Surgery Respiratory: No Currently Using CPAP: No Currently Using BIPAP: No Cardiac: Yes (SELF DC'D BP MEDICATIONS) Hypertension Neurological: Yes Headaches /Migraines Reproductive Disorders: Yes (E.D.) Sexually Transmitted Disease: No HIV/AIDS: No Genitourinary: Yes Neurogenic Bladder, UTI-Chronic Gastrointestinal: Yes Gastroesophageal Reflux, Gastrointestinal Bleed, Obstructive Bowel, Chronic Diarrhea, C-Diff, Hiatal Hernia Musculoskeletal: No Endocrine: No HEENT: Yes (WEARS GLASSES) Loss of Vision: Denies Hearing Impairment: Denies Cancer: Yes Bladder, Rectal, Colon Did You Recieve Any Treatments: Yes What Type of Treatment Did You: Chemotherapy, Radiation, Surgical Intervention Psychosocial: Yes Anxiety, Depression Integumentary: No Blood Disorders: No Adverse Reaction/Blood Tranf: No Family Medical History Cataract 03 FATHER, Onset:Unknown Chest pain 03 FATHER, Onset:50's - 60 Family history: Allergy 03 MOTHER Family history: Arthritis 03 FATHER 03 MOTHER Family history: Asthma 03 MOTHER Family history: Cardiovascular disease 03 FATHER Family history: Diabetes mellitus 03 FATHER 03 MOTHER Family history: Hypertension 03 FATHER 03 MOTHER Headache 03 FATHER 03 MOTHER Heart disease 03 FATHER History of - respiratory disease 03 MOTHER Hypercholesterolemia 03 FATHER 03 MOTHER Kidney disease 03 MOTHER Psychotic disorder 03 MOTHER Visual impairment 03 FATHER 03 MOTHER No Family History of: Abdominal aortic aneurysm Sreedhar's disease Alcoholism Aphasia Cancer Cancer of colon Congenital heart disease Congestive heart failure Cystic fibrosis Dementia Dysphagia Family history: Alzheimer's disease Family history: Breast disease Family history: Coronary thrombosis Family history: Gastrointestinal disease Family history: Glaucoma Family history: Osteoporosis Family history: Thyroid disorder Hearing loss Hereditary disease History of - anemia History of - disorder History of drug abuse Human immunodeficiency virus (HIV) seropositivity Infertile Malignant neoplasm of lung Myocardial infarction Parkinson's disease Prostate cancer Seizure disorder Stroke Tuberculosis Physical Exam Vital Signs Vital Signs - First Documented 01/17/18 00:49 Temp 97.3 Pulse 105 Resp 20 B/P (MAP) 119/96 (104) Pulse Ox 99 O2 Delivery Room Air Capillary Refill : General Appearance: WD/WN, no apparent distress, other (walked in with EMS) HEENT: PERRL/EOMI, normal ENT inspection, TMs normal, pharynx normal Neck: non-tender, supple, normal inspection Respiratory: chest non-tender, lungs clear, normal breath sounds, no respiratory distress, no accessory muscle use Cardiovascular: normal peripheral pulses, regular rate, rhythm, no edema Peripheral Pulses: 2+ Radial Pulses (R), 2+ Radial Pulses (L) Gastrointestinal: normal bowel sounds, soft, tenderness (diffuse, mild, nonspecific tenderness not related to McBurney's point or associated with a positive Helton sign. No psoas sign or other mesenteric signs.), other ( Ileostomy putting out and Svetlana Stout, cloudy urine.) Extremities: normal range of motion, non-tender, normal inspection Neurologic/Psychiatric: alert, oriented x 3 Skin: normal color, warm/dry Focused Exam Lactate Level 01/17/18 01:02: Lactic Acid Level 2.54*H Lactic Acid Level Laboratory Tests Test 01/17/18 01:02 Lactic Acid Level 2.54 MMOL/L (0.50-2.00) *H Progress/Results/Core Measures Results/Orders Lab Results Laboratory Tests Test 01/17/18 00:54 01/17/18 01:02 Range/Units White Blood Count 9.1 4.3-11.0 10^3/uL Red Blood Count 5.41 4.35-5.85 10^6/uL Hemoglobin 15.0 13.3-17.7 G/DL Hematocrit 42 40-54 % Mean Corpuscular Volume 78 L 80-99 FL Mean Corpuscular Hemoglobin 28 25-34 PG Mean Corpuscular Hemoglobin Concent 36 32-36 G/DL Red Cell Distribution Width 14.5 10.0-14.5 % Platelet Count 334 130-400 10^3/uL Mean Platelet Volume 10.6 H 7.4-10.4 FL Neutrophils (%) (Auto) 64 42-75 % Lymphocytes (%) (Auto) 26 12-44 % Monocytes (%) (Auto) 9 0-12 % Eosinophils (%) (Auto) 1 0-10 % Basophils (%) (Auto) 0 0-10 % Neutrophils # (Auto) 5.8 1.8-7.8 X 10^3 Lymphocytes # (Auto) 2.4 1.0-4.0 X 10^3 Monocytes # (Auto) 0.8 0.0-1.0 X 10^3 Eosinophils # (Auto) 0.1 0.0-0.3 10^3/uL Basophils # (Auto) 0.0 0.0-0.1 10^3/uL Prothrombin Time 13.8 12.2-14.7 SEC INR Comment 1.1 0.8-1.4 Activated Partial Thromboplast Time 26 24-35 SEC Urine Color YELLOW Urine Clarity VERY CLOUDY H Urine pH 8 5-9 Urine Specific [place] 1.010 L 1.016-1.022 Urine Protein 2+ H NEGATIVE Urine Glucose (UA) NEGATIVE NEGATIVE Urine Ketones NEGATIVE NEGATIVE Urine Nitrite NEGATIVE NEGATIVE Urine Bilirubin NEGATIVE NEGATIVE Urine Urobilinogen NORMAL NORMAL MG/DL Urine Leukocyte Esterase 3+ H NEGATIVE Urine RBC (Auto) 4+ H NEGATIVE Urine RBC 5-10 H /HPF Urine WBC 25-50 H /HPF Urine Squamous Epithelial Cells RARE /HPF Urine Crystals NONE /LPF Urine Bacteria LARGE H /HPF Urine Casts NONE /LPF Urine Mucus SMALL H /LPF Urine Culture Indicated YES Sodium Level 135 135-145 MMOL/L Potassium Level 3.3 L 3.6-5.0 MMOL/L Chloride Level 104 98-107 MMOL/L Carbon Dioxide Level 14 L 21-32 MMOL/L Anion Gap 17 H 5-14 MMOL/L Blood Urea Nitrogen 23 H 7-18 MG/DL Creatinine 1.75 H 0.60-1.30 MG/DL Estimat Glomerular Filtration Rate 41 BUN/Creatinine Ratio 13 Glucose Level 88 70-105 MG/DL Calcium Level 9.2 8.5-10.1 MG/DL Total Bilirubin 0.6 0.1-1.0 MG/DL Aspartate Amino Transf (AST/SGOT) 43 H 5-34 U/L Alanine Aminotransferase (ALT/SGPT) 47 0-55 U/L Alkaline Phosphatase 83 40-136 U/L Total Protein 7.3 6.4-8.2 GM/DL Albumin 4.3 3.2-4.5 GM/DL Lactic Acid Level 2.54 *H 0.50-2.00 MMOL/L My Orders Orders - TERESA SPIVEY Cbc With Automated Diff (01/17/18 00:57) Comprehensive Metabolic Panel (01/17/18 00:57) Lactic Acid Analyzer (01/17/18 00:57) Blood Culture (01/17/18 00:57) Ua Culture If Indicated (01/17/18 00:57) Protime With Inr (01/17/18 00:57) Partial Thromboplastin Time (01/17/18 00:57) O2 (01/17/18 00:57) Acetaminophen Tablet (Tylenol Tablet) (01/17/18 01:00) Saline Lock/Iv-Start (01/17/18 00:57) Vital Signs Adult Sepsis Patie Q15M (01/17/18 00:57) Remove Rings In Anticipation O (01/17/18 00:57) Ns Iv 1000 Ml (Sodium Chloride 0.9%) (01/17/18 00:57) Promethazine Injection (Phenergan Injec (01/17/18 01:00) Ketorolac Injection (Toradol Injection) (01/17/18 01:00) Ceftriaxone Injection (Rocephin Injectio (01/17/18 01:15) Urine Culture (01/17/18 00:54) Medications Given in ED Current Medications Medications Dose Ordered Sig/Kenny Route Start Time Stop Time Status Last Admin Dose Admin Acetaminophen 1,000 mg ONCE PRN PO 01/17/18 01:00 01/17/18 01:15 DC 01/17/18 01:14 1,000 MG Ceftriaxone Sodium 1000 mg/ Sodium Chloride 50 ml @ 100 mls/hr ONCE ONCE IV 01/17/18 01:15 01/17/18 01:44 DC 01/17/18 02:17 100 MLS/HR Ketorolac Tromethamine 15 mg ONCE ONCE IVP 01/17/18 01:00 01/17/18 01:01 DC 01/17/18 01:13 15 MG Promethazine HCl 25 mg ONCE ONCE IVP 01/17/18 01:00 01/17/18 01:01 DC 01/17/18 01:14 25 MG Vital Signs/I&O 01/17/18 00:49 Temp 97.3 Pulse 105 Resp 20 B/P (MAP) 119/96 (104) Pulse Ox 99 O2 Delivery Room Air Progress Progress Note #1: Time: 01:09 Progress Note We have done a sepsis screen. We expect that the urine will be followed mucus white blood cells and bacteria given its coming from a loop ileostomy urostomy. We will treat him with Rocephin tonight and put him on Keflex outpatient for 7 days and have him follow-up with his primary care provider. We'll give him some Zofran for his nausea. For his body aches looks like his previous creatinines Benalcazar to give him some ketorolac and a dose of Phenergan since he says his nausea is coming back. Give him a liter of fluids to help talk him off however he does not appear to be clinically dry. His tachycardia may be improved with the IV fluids if not will give him a second liter for a 20 mL/kg bolus. Progress Note #2: Time: 02:33 Progress Note Suspect elevated lactate indicates possible sepsis given his history. White count is not very elevated. Most likely source would be urinary so we are going to start him on Rocephin keep some fluids going. The patient's looking and feeling much better with his nausea under control. Departure Communication (Admissions) Time/Spoke to Admitting Phy: 02:10 Dr Turk: Discussed case lab imaging findings. She agrees with observation, IV fluids, Rocephin and she will see the patient in the morning. Impression Primary Impression: UTI (urinary tract infection) Qualified Codes: N39.0 - Urinary tract infection, site not specified Additional Impression: Sepsis Qualified Codes: A41.9 - Sepsis, unspecified organism Disposition: ADMITTED INPATIENT Condition: Improved Admissions Decision to Admit Reason: Admit from ER (General) Decision to Admit/Date: Jan 17, 2018 Time/Decision to Admit Time: 02:33 Departure-Patient Inst. Referrals: NIKHIL PITTS DO (PCP) Primary Care Physician LINDA BENTLEY (Family) Primary Care Physician Copy Copies To 1: NIKHIL PITTS TITUS J Jan 17, 2018 01:06
[2018-01-17 01:08] LABS: BASOPHILS % (AUTO) 0 % (0-10); EOSINOPHILS # (AUTO) 0.1 10^3/uL (0.0-0.3); EOSINOPHILS % (AUTO) 1 % (0-10); HEMATOCRIT 42 % (40-54); LYMPHOCYTES # (AUTO) 2.4 X 10^3 (1.0-4.0); LYMPHOCYTES % (AUTO) 26 % (12-44); MEAN CORPUSCULAR HEMOGLOBIN 28 PG (25-34); MEAN CORPUSCULAR HGB CONC 36 G/DL (32-36); MEAN CORPUSCULAR VOLUME 78 FL (80-99); MEAN PLATELET VOLUME 10.6 FL (7.4-10.4); MONOCYTES # (AUTO) 0.8 X 10^3 (0.0-1.0); MONOCYTES % (AUTO) 9 % (0-12); NEUTROPHILS # (AUTO) 5.8 X 10^3 (1.8-7.8); NEUTROPHILS % (AUTO) 64 % (42-75); PLATELET COUNT 334 10^3/uL (130-400); RED BLOOD COUNT 5.41 10^6/uL (4.35-5.85); RED CELL DISTRIBUTION WIDTH 14.5 % (10.0-14.5); WHITE BLOOD COUNT 9.1 10^3/uL (4.3-11.0)
[2018-01-17 01:10] LABS: BILIRUBIN,URINE NEGATIVE (NEGATIVE); CLARITY,URINE VERY CLOUDY; COLOR,URINE YELLOW; GLUCOSE, URINE (UA) NEGATIVE (NEGATIVE); KETONES,URINE NEGATIVE (NEGATIVE); LEUKOCYTE ESTERASE ,URINE 3+ (NEGATIVE); NITRITE,URINE NEGATIVE (NEGATIVE); PH,URINE 8 (5-9); PROTEIN,URINE 2+ (NEGATIVE); UROBILINOGEN,URINE NORMAL (NORMAL)
[2018-01-17] MEDS ORDERED: cefTRIAXone INJECTION 1,000 MG in NS (IVPB) 50 ML IV ONE (01:15)
[2018-01-17 01:18] LABS: BACTERIA,URINE LARGE /HPF; WBC,URINE 25-50 /HPF
[2018-01-17 01:19] LABS: SQUAMOUS EPITHELIAL CELL,UR RARE /HPF
[2018-01-17 01:21] LABS: INR 1.1 (0.8-1.4); PROTHROMBIN TIME PATIENT 13.8 SEC (12.2-14.7)
[2018-01-17 01:30] LABS: ALBUMIN 4.3 GM/DL (3.2-4.5); BILIRUBIN,TOTAL 0.6 MG/DL (0.1-1.0); CALCIUM 9.2 MG/DL (8.5-10.1); CREATININE SERUM 1.75 MG/DL (0.60-1.30); POTASSIUM 3.3 MMOL/L (3.6-5.0); TOTAL PROTEIN 7.3 GM/DL (6.4-8.2)
[2018-01-17] MEDS ORDERED: 1/2 NS W/KCL 20 MEQ/L 1,000 ML IV ONE (03:15)
[2018-01-17] MEDS: 1/2 NS W/KCL 20 MEQ/L 1,000 ML IV SCH ×5 (03:28→22:46)
[2018-01-17 03:39] VITALS: BP 128/74
[2018-01-17 06:47] LABS: BASOPHILS % (AUTO) 0 % (0-10); EOSINOPHILS % (AUTO) 1 % (0-10); HEMATOCRIT 40 % (40-54); LYMPHOCYTES # (AUTO) 1.9 X 10^3 (1.0-4.0); LYMPHOCYTES % (AUTO) 22 % (12-44); MEAN CORPUSCULAR HEMOGLOBIN 28 PG (25-34); MEAN CORPUSCULAR HGB CONC 35 G/DL (32-36); MEAN CORPUSCULAR VOLUME 79 FL (80-99); MEAN PLATELET VOLUME 10.4 FL (7.4-10.4); MONOCYTES # (AUTO) 0.7 X 10^3 (0.0-1.0); MONOCYTES % (AUTO) 8 % (0-12); NEUTROPHILS # (AUTO) 6.1 X 10^3 (1.8-7.8); NEUTROPHILS % (AUTO) 70 % (42-75); PLATELET COUNT 278 10^3/uL (130-400); RED BLOOD COUNT 5.04 10^6/uL (4.35-5.85); RED CELL DISTRIBUTION WIDTH 14.5 % (10.0-14.5); WHITE BLOOD COUNT 8.7 10^3/uL (4.3-11.0)
[2018-01-17 07:13] LABS: CALCIUM 8.5 MG/DL (8.5-10.1); CREATININE SERUM 1.55 MG/DL (0.60-1.30); POTASSIUM 3.6 MMOL/L (3.6-5.0)
[2018-01-17] MEDS: KETOROLAC 15 MG/ML VIAL IV PRN ×2 (07:51→13:55)
[2018-01-17 08:49] VITALS: BP 109/73
[2018-01-17 12:30] VITALS: BP 109/73
[2018-01-17] MEDS ORDERED: ONDANSETRON 4 MG/2 ML (SDV) Z0FRAN IVP NR (14:15)
[2018-01-17 16:38] VITALS: BP 130/78
--- NOTE | 2018-01-17 17:35 | History & Physicial (CHS) ---
HPI History of Present Illness: Pt presented to ED via EMS last night with report of 4-5 days of nausea and vomiting. He reported that he had not taken anything for that yet, he was unable to get an appt with his PCP, Leonardo Santacruz, and did not want to see anyone else at the clinic. Pt was given zofran ODT and immediately felt better, once IV was placed he reported that he normally was given Fentanyl and Phenergan and that always worked for him. He was evaluated in the ED and found to have findings consistent with a UTI, no elevation in white count, however elevated lactic acid noted. Pt was placed in observation for IV fluids, medication, and anticipated discharge with PO abx for UTI. When seen this evening, pt reports "he is doing terrible and needs a shot of fentanyl and phenergan because that is the only thing that works". Pt states he can't keep anything down, and doesn't think the zofran is helping enough. Clinic chart review shows pt is prescribed Percocet 10/325 1 tab Q4H and Oxycodone 30 mg BID, pt reports he has not been able to take any medication in about three days due to his nausea and vomiting. Suspect pt may have initially had gastroenteritis, but now symptoms compounded by opiate withdrawal, as pt is prescribed high dose narcotics and has reportedly not taken any in the last 3 days, and did not have anything stronger than tramadol ordered from ED, as no one was aware of the large amount of narcotics the patient normally takes. Source: patient, RN/MD, RN notes reviewed, old records Exam Limitations: no limitations Date seen by provider: Jan 17, 2018 Time Seen by Provider: 17:20 Attending Physician Emmie Turk DO PCP Leonardo Santacruz INFORMATION SECURITY MANAGER Consult Date of Admission Jan 17, 2018 at 02:25 Home Medications Home Medications Reviewed patient Home Medication Reconciliation performed by pharmacy medication reconciliations ag equipment field service technician and/or nursing. Patients Allergies have been reviewed. Allergies Coded Allergies: morphine (Verified Allergy, Intermediate, 01/01/17) codeine (Verified Adverse Reaction, Unknown, NAUSEA, 01/01/17) [id number] Hx Patient Social History Marrital Status: Number of Children: 3 Number of living children: 3 Living Status: lives independently Employed/Student: unemployed Alcohol Use: Denies Use Recreational Drug Use: No Smoking Status: Never a Smoker 2nd Hand Smoke Exposure: No Recent Foreign Travel: No Contact w/other who traveled: No Recent Hopitalizations: No Recent Infectious Disease Expo: No Physical Abuse Screen: No Sexual Abuse: No Immunizations Up To Date Tetanus Booster (TDap): Unknown Past Medical History 1. Rectal Cancer Stage II [id number]- s/p chemotherapy and radiation stopped secondary to intolerance. Last chemo 07/16/14 2. Gastroparesis secondary #1 3. Severe Gastritis per EGD 07-30 Aleksandrao 4. Small hiatal hernia 3cm 07-30 Kido 5. Grade B reflux esophagitis 07/30 6. Recurrent episodes of nausea and vomiting secondary to #2, and #3 7. Bladder Removal 8. HTN 9. C-Diff colitis 10. Mood disorder with depression 11. Recurrent Headaches 12. Recurrent admissions for dehydration secondary and acute renal insufficiency secondary to #2, #3, #6 13. Recurrent hypokalemia and hypomagnesia secondary to other co-morbidities Past Surgical History 1. Placement of JJ stent for hydronephrosis 03-06-13 Rene 2. EGD 07-30 Lauren, severe gastritis 3. Diverting loop ileostomy with colon resection 12-06-12 Joey 4. Reversal of ileostomy 04-18-13 5. Colonoscopy x2 by Dr. Aguilar 6. Nephrostomy tube placement with cystectomy 03/30 [facility] 7. Left Arm Fracture 04/2017 Family Medical History Family History: Cataract 03 FATHER, Onset:Unknown Chest pain 03 FATHER, Onset:50's - 60 Family history: Allergy 03 MOTHER Family history: Arthritis 03 FATHER 03 MOTHER Family history: Asthma 03 MOTHER Family history: Cardiovascular disease 03 FATHER Family history: Diabetes mellitus 03 FATHER 03 MOTHER Family history: Hypertension 03 FATHER 03 MOTHER Headache 03 FATHER 03 MOTHER Heart disease 03 FATHER History of - respiratory disease 03 MOTHER Hypercholesterolemia 03 FATHER 03 MOTHER Kidney disease 03 MOTHER Psychotic disorder 03 MOTHER Visual impairment 03 FATHER 03 MOTHER No Family History of: Abdominal aortic aneurysm Bend's disease Alcoholism Aphasia Cancer Cancer of colon Congenital heart disease Congestive heart failure Cystic fibrosis Dementia Dysphagia Family history: Alzheimer's disease Family history: Breast disease Family history: Coronary thrombosis Family history: Gastrointestinal disease Family history: Glaucoma Family history: Osteoporosis Family history: Thyroid disorder Hearing loss Hereditary disease History of - anemia History of - disorder History of drug abuse Human immunodeficiency virus (HIV) seropositivity Infertile Malignant neoplasm of lung Myocardial infarction Parkinson's disease Prostate cancer Seizure disorder Stroke Tuberculosis Review of Systems (CHC) Constitutional: see HPI EENTM: no symptoms reported Respiratory: no symptoms reported Cardiovascular: no symptoms reported Gastrointestinal: see HPI, abdominal pain, nausea, vomiting Genitourinary: no symptoms reported Musculoskeletal: no symptoms reported Skin: no symptoms reported Psychiatric/Neurological: No Symptoms Reported Reviewed Test Results Reviewed Test Results Lab Laboratory Tests Test 01/17/18 00:54 01/17/18 01:02 01/17/18 06:20 Range/Units White Blood Count 9.1 8.7 4.3-11.0 10^3/uL Red Blood Count 5.41 5.04 4.35-5.85 10^6/uL Hemoglobin 15.0 14.0 13.3-17.7 G/DL Hematocrit 42 40 40-54 % Mean Corpuscular Volume 78 L 79 L 80-99 FL Mean Corpuscular Hemoglobin 28 28 25-34 PG Mean Corpuscular Hemoglobin Concent 36 35 32-36 G/DL Red Cell Distribution Width 14.5 14.5 10.0-14.5 % Platelet Count 334 278 130-400 10^3/uL Mean Platelet Volume 10.6 H 10.4 7.4-10.4 FL Neutrophils (%) (Auto) 64 70 42-75 % Lymphocytes (%) (Auto) 26 22 12-44 % Monocytes (%) (Auto) 9 8 0-12 % Eosinophils (%) (Auto) 1 1 0-10 % Basophils (%) (Auto) 0 0 0-10 % Neutrophils # (Auto) 5.8 6.1 1.8-7.8 X 10^3 Lymphocytes # (Auto) 2.4 1.9 1.0-4.0 X 10^3 Monocytes # (Auto) 0.8 0.7 0.0-1.0 X 10^3 Eosinophils # (Auto) 0.1 0.0 0.0-0.3 10^3/uL Basophils # (Auto) 0.0 0.0 0.0-0.1 10^3/uL Prothrombin Time 13.8 12.2-14.7 SEC INR Comment 1.1 0.8-1.4 Activated Partial Thromboplast Time 26 24-35 SEC Urine Color YELLOW Urine Clarity VERY CLOUDY H Urine pH 8 5-9 Urine Specific [place] 1.010 L 1.016-1.022 Urine Protein 2+ H NEGATIVE Urine Glucose (UA) NEGATIVE NEGATIVE Urine Ketones NEGATIVE NEGATIVE Urine Nitrite NEGATIVE NEGATIVE Urine Bilirubin NEGATIVE NEGATIVE Urine Urobilinogen NORMAL NORMAL MG/DL Urine Leukocyte Esterase 3+ H NEGATIVE Urine RBC (Auto) 4+ H NEGATIVE Urine RBC 5-10 H /HPF Urine WBC 25-50 H /HPF Urine Squamous Epithelial Cells RARE /HPF Urine Crystals NONE /LPF Urine Bacteria LARGE H /HPF Urine Casts NONE /LPF Urine Mucus SMALL H /LPF Urine Culture Indicated YES Sodium Level 135 135 135-145 MMOL/L Potassium Level 3.3 L 3.6 3.6-5.0 MMOL/L Chloride Level 104 105 98-107 MMOL/L Carbon Dioxide Level 14 L 17 L 21-32 MMOL/L Anion Gap 17 H 13 5-14 MMOL/L Blood Urea Nitrogen 23 H 22 H 7-18 MG/DL Creatinine 1.75 H 1.55 H 0.60-1.30 MG/DL Estimat Glomerular Filtration Rate 41 48 BUN/Creatinine Ratio 13 14 Glucose Level 88 98 70-105 MG/DL Calcium Level 9.2 8.5 8.5-10.1 MG/DL Total Bilirubin 0.6 0.1-1.0 MG/DL Aspartate Amino Transf (AST/SGOT) 43 H 5-34 U/L Alanine Aminotransferase (ALT/SGPT) 47 0-55 U/L Alkaline Phosphatase 83 40-136 U/L Total Protein 7.3 6.4-8.2 GM/DL Albumin 4.3 3.2-4.5 GM/DL Lactic Acid Level 2.54 *H 1.54 0.50-2.00 MMOL/L Physical Exam-(CHC) Physical Exam Vital Signs VS - Last 72 Hours, by Label 01/17/18 01/17/18 01/17/18 01/17/18 00:49 03:01 03:39 08:00 Temp 97.3 97.3 97.0 Pulse 105 105 81 Resp 20 20 19 B/P (MAP) 119/96 (104) 119/96 (104) 128/74 (92) Pulse Ox 99 99 96 98 O2 Delivery Room Air Room Air Room Air 01/17/18 01/17/18 01/17/18 08:49 12:30 16:38 Temp 98.6 98.6 98.3 Pulse 60 60 62 Resp 16 16 18 B/P (MAP) 109/73 (85) 109/73 (85) 130/78 (95) Pulse Ox 98 98 95 O2 Delivery Room Air Room Air Room Air Capillary Refill : Less Than 3 Seconds General Appearance: WD/WN, no apparent distress Eyes: Bilateral Eye Normal Inspection, Bilateral Eye EOMI HEENT: normal ENT inspection, TMs normal Neck: non-tender, full range of motion, supple, normal inspection Respiratory: chest non-tender, lungs clear, normal breath sounds, no respiratory distress, no accessory muscle use Cardiovascular: regular rate, rhythm, no edema, no gallop, no JVD, no murmur Gastrointestinal: normal bowel sounds, soft, no organomegaly, tenderness Rectal: deferred Extremities: normal range of motion, non-tender, normal inspection, no pedal edema, no calf tenderness, normal capillary refill Neurologic/Psychiatric: twist packer II-XII nml as tested, no motor/sensory deficits, alert, normal mood/affect, oriented x 3 Skin: normal color, warm/dry Lymphatic: no adenopathy Assessment/Plan Assessment/Plan Admission Dx Nausea and Vomiting UTI Acute Renal Insufficiency Elevated Lactic Acid High Risk Medication Use Chronic High Dose Opiate Therapy Hx Rectal Cancer Admission Status: Observation Assessment & Plan Nausea and Vomiting 01/16 -initially improved with Zofran but now pt reports he has not been able to keep anything down all day and needs phenergan -phenergan 25 mg as second line for nausea -reglan 3rd line, compazine 4th line for nausea -diet as tolerated -suspect that pt initially had gastroenteritis and now is having n/v secondary to opiate withdrawal, as he reports he has been unable to keep down any of his medication for three days, and he takes a total of 180 MME/day UTI 01/16 -no elevated WBC -urine culture pending -Rocephin started in ED Acute Renal Insufficiency 01/16 -mildly elevated Cr -stop toradol -continue IV hydration -suspect secondary to UTI, will review records to find out baseline Cr Elevated Lactic Acid -RESOLVED High Risk Medication Use, Chronic High Dose Opiate Therapy 01/16 -clinic chart review shows that pt takes 30 mg Oxycodone BID and Percocet 10/ 325 Q4H for a total of 180 MME/day -resume home meds Hx Rectal Cancer Depression -resume home medication At the time of exam pt reports he does not feel like he can go home, he would like to stay tonight and see how he feels tomorrow. Anticipate once pt's home medications are resumed that he will start to feel much better, and he will be ready for discharge on PO abx in the next 24-48 hours. Continue in observation status. Clinical Quality Measures DVT/VTE Risk/Contraindication: Risk Factor Score Per Nursin RFS Level Per Nursing on Admit: 1=Low/No VTE PPX Copy Copies To 1: [facility]EMMIE PARK DO Jan 17, 2018 17:35
[2018-01-17] MEDS ORDERED: PREG150C PO (17:42)
[2018-01-17] MEDS ORDERED: ACYC5CRE3 TP (17:42)
[2018-01-17] MEDS ORDERED: RAMELTEON 8 MG (ROZEREM) TAB PO PRN (17:45)
[2018-01-17] MEDS ORDERED: oxyCODONE/APAP 10/325MG (PERCOCET 10) TABLET PO SCH (17:45)
[2018-01-17] MEDS ORDERED: METOCLOPRAMIDE INJ 10 MG/2 ML (REGLAN) IVP PRN (17:45)
[2018-01-17] MEDS ORDERED: NON-FORMULARY MEDICATION 1 EA EA (Oxycodone HCl 30 MG) PO PRN (17:45)
[2018-01-17] MEDS ORDERED: PROCHLORPERAZINE 10 MG/2ML INJ (COMPAZINE) IV PRN (17:45)
[2018-01-17] MEDS ORDERED: fentaNYL INJECTION 100 MCG/2 ML AMP IVP ONE (17:45)
[2018-01-17] MEDS ORDERED: oxyCODONE/APAP 5/325MG (PERCOCET 5) TABLET ONE (17:48)
[2018-01-17] MEDS: oxyCODONE/APAP 10/325MG (PERCOCET 10) TABLET PO PRN ×2 (17:53→22:08)
[2018-01-17] MEDS: PROMETHAZINE INJ 25 MG/ML (PHENERGAN) AMP IVP PRN ×2 (17:59→22:08)
[2018-01-17 19:37] VITALS: BP 128/70
[2018-01-17] MEDS ORDERED: ENOXAPARIN 40 MG/0.4 ML (LOVENOX) SYR SC SCH (20:00)
[2018-01-17] MEDS ORDERED: NON-FORMULARY MEDICATION 1 EA EA (Pregabalin (Lyrica) 150 MG) PO SCH (21:00)
[2018-01-18] VITALS: BP 168/85
[2018-01-18] MEDS ORDERED: cefTRIAXone 1 GM/NS 50 ML IVPB IV SCH ×2 (01:00)
[2018-01-18] MEDS: PROMETHAZINE INJ 25 MG/ML (PHENERGAN) AMP IVP PRN (03:02)
[2018-01-18] MEDS: 1/2 NS W/KCL 20 MEQ/L 1,000 ML IV SCH ×3 (04:08→14:24)
[2018-01-18] MEDS: oxyCODONE/APAP 10/325MG (PERCOCET 10) TABLET PO PRN ×3 (04:08→13:14)
[2018-01-18 04:10] VITALS: BP 178/98
[2018-01-18] MEDS ORDERED: cloNIDine 0.1 MG (CATAPRES) TAB PO ONE (05:15)
[2018-01-18] MEDS ORDERED: fentaNYL INJECTION 100 MCG/2 ML AMP IVP PRN (05:15)
[2018-01-18] MEDS ORDERED: PROMETHAZINE INJ 25 MG/ML (PHENERGAN) AMP IVP ONE (05:15)
[2018-01-18 06:20] LABS: BASOPHILS % (AUTO) 0 % (0-10); EOSINOPHILS % (AUTO) 0 % (0-10); HEMATOCRIT 41 % (40-54); HEMOGLOBIN 14.5 G/DL (13.3-17.7); LYMPHOCYTES # (AUTO) 1.2 X 10^3 (1.0-4.0); LYMPHOCYTES % (AUTO) 12 % (12-44); MEAN CORPUSCULAR HEMOGLOBIN 27 PG (25-34); MEAN CORPUSCULAR HGB CONC 35 G/DL (32-36); MEAN CORPUSCULAR VOLUME 77 FL (80-99); MEAN PLATELET VOLUME 10.5 FL (7.4-10.4); MONOCYTES # (AUTO) 0.5 X 10^3 (0.0-1.0); MONOCYTES % (AUTO) 5 % (0-12); NEUTROPHILS # (AUTO) 8.2 X 10^3 (1.8-7.8); NEUTROPHILS % (AUTO) 83 % (42-75); PLATELET COUNT 328 10^3/uL (130-400); RED BLOOD COUNT 5.37 10^6/uL (4.35-5.85); RED CELL DISTRIBUTION WIDTH 14.3 % (10.0-14.5); WHITE BLOOD COUNT 9.9 10^3/uL (4.3-11.0)
[2018-01-18 06:35] LABS: BUN/CREATININE RATIO 11; CALCIUM 9.3 MG/DL (8.5-10.1); CARBON DIOXIDE 19 MMOL/L (21-32); CHLORIDE 103 MMOL/L (98-107); CREATININE SERUM 1.04 MG/DL (0.60-1.30); GFR ESTIMATED > 60; GLUCOSE 120 MG/DL (70-105); MAGNESIUM 1.8 MG/DL (1.8-2.4); POTASSIUM 3.9 MMOL/L (3.6-5.0); SODIUM 134 MMOL/L (135-145)
[2018-01-18 08:13] VITALS: BP 182/90
[2018-01-18] MEDS: PREGABALIN 75 MG (LYRICA) CAP PO SCH ×2 (08:45→13:14)
[2018-01-18] MEDS ORDERED: hydrALAZINE (APESOLINE) 20 MG/ML VIAL IV NR (09:30)
[2018-01-18 12:00] VITALS: BP 106/69
--- NOTE | 2018-01-18 13:33 | Discharge Summary ---
Diagnosis/Chief Complaint Date of Admission Jan 17, 2018 at 02:25 Date of Discharge 01/18/18 Admission Diagnosis Admission Diagnosis Nausea and Vomiting UTI Acute Renal Insufficiency Elevated Lactic Acid High Risk Medication Use Chronic High Dose Opiate Therapy Hx Rectal Cancer Discharge Diagnosis Nausea and Vomiting 01/17 -initially improved with Zofran but now pt reports he has not been able to keep anything down all day and needs phenergan -phenergan 25 mg as second line for nausea -reglan 3rd line, compazine 4th line for nausea -diet as tolerated -suspect that pt initially had gastroenteritis and now is having n/v secondary to opiate withdrawal, as he reports he has been unable to keep down any of his medication for three days, and he takes a total of 180 MME/day 01/18 -pt has been taking phenergan and zofran, but has eaten twice today without emesis -discharge to home with rx for PO promethazine and zofran PRN -discussed with patient that he needs to tell providers when he is admitted that he is on extremely high dose narcotics, as suspect the majority of his symptoms were due to opiate withdrawal UTI 01/17 -no elevated WBC -urine culture pending -Rocephin started in ED 01/18 -continues to have normal white count -urine culture shows GNR, final ID and sensitivity pending -has received 2 doses rocephin, will discharge on Keflex 500 mg PO TID x5 days Acute Renal Insufficiency 01/17 -mildly elevated Cr -stop toradol -continue IV hydration -suspect secondary to UTI, will review records to find out baseline Cr 01/18 -Cr 1.55 --> 1.04 -RESOLVED Elevated Lactic Acid -RESOLVED High Risk Medication Use, Chronic High Dose Opiate Therapy 01/17 -clinic chart review shows that pt takes 30 mg Oxycodone BID and Percocet 10/ 325 Q4H for a total of 180 MME/day -resume home meds Hx Rectal Cancer Depression -resume home medication Much improved, will discharge home today. Pt talking about weaning down on his narcotics; discussed with patient that he needs to discuss this with his PCP, Corina Santacruz APRN. Has upcoming appt scheduled, pt to keep. Chief Complaint/HPI Chief Complaint/HPI Pt presented to ED via EMS last night with report of 4-5 days of nausea and vomiting. He reported that he had not taken anything for that yet, he was unable to get an appt with his PCP, Leonardo Santacruz, and did not want to see anyone else at the clinic. Pt was given zofran ODT and immediately felt better, once IV was placed he reported that he normally was given Fentanyl and Phenergan and that always worked for him. He was evaluated in the ED and found to have findings consistent with a UTI, no elevation in white count, however elevated lactic acid noted. Pt was placed in observation for IV fluids, medication, and anticipated discharge with PO abx for UTI. When seen this evening, pt reports "he is doing terrible and needs a shot of fentanyl and phenergan because that is the only thing that works". Pt states he can't keep anything down, and doesn't think the zofran is helping enough. Clinic chart review shows pt is prescribed Percocet 10/325 1 tab Q4H and Oxycodone 30 mg BID, pt reports he has not been able to take any medication in about three days due to his nausea and vomiting. Suspect pt may have initially had gastroenteritis, but now symptoms compounded by opiate withdrawal, as pt is prescribed high dose narcotics and has reportedly not taken any in the last 3 days, and did not have anything stronger than tramadol ordered from ED, as no one was aware of the large amount of narcotics the patient normally takes. Discharge Summary-OBS Procedures None. Consultations Discharge Physical Examination Allergies: Coded Allergies: morphine (Verified Allergy, Intermediate, 01/01/17) codeine (Verified Adverse Reaction, Unknown, NAUSEA, 01/01/17) Vitals & I&Os Intake and Output 01/18/18 00:00 Intake Total 1360 ml Output Total 1950 ml Balance -590 ml Vital Sign - Last 12Hours Date Time Temp Pulse Resp B/P (MAP) Pulse Ox O2 Delivery O2 Flow Rate FiO2 01/18/18 08:13 99.5 63 18 182/90 (120) 95 Room Air General Appearance: Alert, Oriented X3, Cooperative, No Acute Distress HEENT: Atraumatic, EOMI, Mucous Memb Moist/[place] Respiratory: Clear to Auscultation, Normal Air Movement Cardiovascular: Regular Rate, Normal S1, Normal S2 Abdominal: Normal Bowel Sounds, Soft, No Tenderness Extremities: No Clubbing, No Cyanosis, No Edema Skin: No Rashes, No Significant Lesion Neuro: Normal Speech, Normal Tone, Sensation Intact, Cranial Nerves 3-12 NL Psych/Mental Status: Mental Status NL, Mood NL Hospital Course see final discharge diagnosis Labs Laboratory Tests 01/18/18 05:51: White Blood Count 9.9, Red Blood Count 5.37, Hemoglobin 14.5, Hematocrit 41, Mean Corpuscular Volume 77L, Mean Corpuscular Hemoglobin 27, Mean Corpuscular Hemoglobin Concent 35, Red Cell Distribution Width 14.3, Platelet Count 328, Mean Platelet Volume 10.5H, Neutrophils (%) (Auto) 83H, Lymphocytes (%) (Auto) 12, Monocytes (%) (Auto) 5, Eosinophils (%) (Auto) 0, Basophils (%) (Auto) 0, Neutrophils # (Auto) 8.2H, Lymphocytes # (Auto) 1.2, Monocytes # (Auto) 0.5, Eosinophils # (Auto) 0.0, Basophils # (Auto) 0.0, Sodium Level 134L, Potassium Level 3.9, Chloride Level 103, Carbon Dioxide Level 19L, Anion Gap 12, Blood Urea Nitrogen 11, Creatinine 1.04, Estimat Glomerular Filtration Rate > 60, BUN/ Creatinine Ratio 11, Glucose Level 120H, Calcium Level 9.3, Magnesium Level 1.8 Microbiology 01/17/18 Urine Culture - Preliminary, Resulted Gram Negative Bacillus 1 See Comments Discharge Condition at discharge stable Instructions to patient/family Please see electronic discharge instructions given to patient. Discharge Medications Reviewed and agree with Discharge Medication list on patient's Discharge Instruction sheet Clinical Quality Measures DVT/VTE Risk/Contraindication: Risk Factor Score Per Nursin RFS Level Per Nursing on Admit: 1=Low/No VTE PPX Copy Copies To 1: [facility] DO Jan 18, 2018 13:33
[2018-01-18] MEDS ORDERED: ONDA8TAB13 PO (13:37)
[2018-01-18] MEDS ORDERED: PROM25TA14 PO (13:37)
[2018-01-18] MEDS ORDERED: CEPH-507 PO (13:37)
--- NOTE | 2018-01-18 13:39 | Discharge Instructions ---
Discharge [facility] Discharge Medications New, Converted or Re-Newed RX: Transmitted to Pharmacy New Medications: Cephalexin (Keflex) 500 Mg Capsule 500 MG PO TID for 5 Days, #15 CAP 0 Refills Ondansetron (Ondansetron Odt) 8 Mg Tab.rapdis 8 MG PO Q8H PRN for NAUSEA/VOMITING-2ND LINE for 14 Days, #42 TAB 0 Refills Promethazine HCl (Promethazine Tablet) 25 Mg Tablet 25 MG PO Q6H PRN for NAUSEA/VOMITING for 14 Days, #56 TAB 0 Refills Continued Medications: Oxycodone HCl (Oxycodone HCl) 30 Mg Tablet 30 MG PO BID PRN for SEVERE PAIN, TAB Oxycodone HCl/Acetaminophen (Oxycodone-Acetaminophen 10-325) 1 Each Tablet 1 TAB PO Q4H, TAB Pregabalin (Lyrica) 150 Mg Capsule 150 MG PO TID for 30 Days, CAP Patient Instructions Patient Instructions -take medications as prescribed -keep appt as scheduled with Corina Santacruz APRN on 01/25/18 Goal/Follow Up Appt: Trevon Santacruz APRN on 01/25/18 Return to The Hospital For: chest pain or pressure, shortness of breath, temp >101 not relieved by tylenol or ibuprofen, nausea or vomiting that makes you unable to keep down clear liquids or medications for more than 12-24 hours, severe pain not relieved by routine medications, if directed by freight traffic consultant provider or with any other emergent complaints or concerns Activity & Diet Discharge Diet: Regular Diet Activity as Tolerated: Yes Copy Copies To 1: [facility] DO Jan 18, 2018 13:39
[2018-01-18] MEDS ORDERED: SERTRALINE 100 MG (ZOLOFT) TAB PO SCH (16:00)
== END 2018-01-18 13:37 | disposition home or self-care (01) ==
LOC: EDUNIT# 00:49 → ER 00:50 → 4TH 02:25 → UNDOADMOB 02:25 → 4TH 03:10 → UNDODISOB 01-18 16:15
PROVIDERS: ADMIT Family Medicine; ATTEND Family Medicine
DX: N39.0 Urinary tract infection, site not specified (principal); R11.2 Nausea with vomiting, unspecified; N28.9 Disorder of kidney and ureter, unspecified; F32.9 Major depressive disorder, single episode, unspecified; G43.909 Migraine, unspecified, not intractable, without status migrainosus; F41.9 Anxiety disorder, unspecified; Z92.21 Personal history of antineoplastic chemotherapy; Z92.3 Personal history of irradiation; K21.9 Gastro-esophageal reflux disease without esophagitis; K52.9 Noninfective gastroenteritis and colitis, unspecified; Z85.048 Personal history of other malignant neoplasm of rectum, rectosigmoid junction, and anus; Z79.899 Other long term (current) drug therapy; Z79.891 Long term (current) use of opiate analgesic
CPT/HCPCS: 36415; 80048; 80053; 81000; 83605; 83735; 85025; 85610; 85730; 87040; 87077; 87088; 87186; 96361; 96365; 96375; G0378

== ENCOUNTER 2018-03-29 14:11 | Outpatient (RCR) | payer MEDICARE, MEDICAID ==
[~2018-03-29 14:11] MED LIST changes: +ACYC5CRE3 TP; -OXYC-197 PO; +OXYC1TAB87 PO; +PREG150C PO
[2018-03-29 14:21] LABS: BASOPHILS % (AUTO) 0 % (0-10); EOSINOPHILS # (AUTO) 0.4 10^3/uL (0.0-0.3); EOSINOPHILS % (AUTO) 5 % (0-10); HEMATOCRIT 41 % (40-54); HEMOGLOBIN 14.1 G/DL (13.3-17.7); LYMPHOCYTES # (AUTO) 2.1 X 10^3 (1.0-4.0); LYMPHOCYTES % (AUTO) 28 % (12-44); MEAN CORPUSCULAR HEMOGLOBIN 27 PG (25-34); MEAN CORPUSCULAR HGB CONC 34 G/DL (32-36); MEAN CORPUSCULAR VOLUME 80 FL (80-99); MEAN PLATELET VOLUME 9.9 FL (7.4-10.4); MONOCYTES # (AUTO) 0.5 X 10^3 (0.0-1.0); MONOCYTES % (AUTO) 7 % (0-12); NEUTROPHILS # (AUTO) 4.5 X 10^3 (1.8-7.8); NEUTROPHILS % (AUTO) 60 % (42-75); PLATELET COUNT 272 10^3/uL (130-400); RED BLOOD COUNT 5.15 10^6/uL (4.35-5.85); RED CELL DISTRIBUTION WIDTH 14.8 % (10.0-14.5); WHITE BLOOD COUNT 7.5 10^3/uL (4.3-11.0)
[2018-03-29 14:42] LABS: ALANINE AMINOTRANSFERASE 50 U/L (0-55); ALBUMIN 4.1 GM/DL (3.2-4.5); ALKALINE PHOSPHATASE 80 U/L (40-136); BILIRUBIN,TOTAL 0.7 MG/DL (0.1-1.0); BUN/CREATININE RATIO 8; CARBON DIOXIDE 19 MMOL/L (21-32); CHLORIDE 106 MMOL/L (98-107); CREATININE SERUM 1.23 MG/DL (0.60-1.30); GFR ESTIMATED > 60; GLUCOSE 116 MG/DL (70-105); POTASSIUM 3.7 MMOL/L (3.6-5.0); SODIUM 137 MMOL/L (135-145); TOTAL PROTEIN 6.8 GM/DL (6.4-8.2)
== END 2018-04-15 | disposition home or self-care (01) ==
LOC: ONC 14:11
PROVIDERS: ATTEND Internal Medicine Hematology & Oncology
DX: Z08 Encounter for follow-up examination after completed treatment for malignant neoplasm (principal); Z85.048 Personal history of other malignant neoplasm of rectum, rectosigmoid junction, and anus; D50.9 Iron deficiency anemia, unspecified; F33.9 Major depressive disorder, recurrent, unspecified; G47.00 Insomnia, unspecified; N39.490 Overflow incontinence; R79.89 Other specified abnormal findings of blood chemistry; G62.89 Other specified polyneuropathies; K31.84 Gastroparesis; K21.9 Gastro-esophageal reflux disease without esophagitis; Z79.899 Other long term (current) drug therapy; Z92.3 Personal history of irradiation; Z92.21 Personal history of antineoplastic chemotherapy; Z87.440 Personal history of urinary (tract) infections
CPT/HCPCS: 36415; 80053; 82378; 85025; 99213

== ENCOUNTER 2018-06-09 17:04 | Observation (INO) | payer MEDICARE, MEDICAID ==
[~2018-06-09] VITALS: Ht 170.2 cm; Wt 89.4 kg
--- OUTSIDE RECORDS SUMMARY | 2018-06-09 17:10 | XMS REPORT | Clinical Summary ---
Author Author [facility] Organization [facility] Address Unknown Phone Unavailable Care Team Providers Care Trainer Name Role Phone Polo Link MD Unavailable Rosalab Coker RN Unavailable Unavailable Radha Luna RN Unavailable Elizabeth Montoya RN Unavailable Unavailable Gildardo Walker MD PCP Fern Perez RN Unavailable Unavailable Source Comments Some departments are not documenting in the electronic medical record. 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
--- OUTSIDE RECORDS SUMMARY | 2018-06-09 17:11 | XMS REPORT ---
Author Author LINDA BENTLEY Organization [facility] Address [address] [place] [address] Care Team Providers Care Kiln Firer Helper Name Role Phone LINDA BENTLEY Unavailable PROBLEMS Type Condition ICD9-CM Code ZVC90-QN Code Onset Dates Condition Status SNOMED Code Problem Abdominal pain, left lower quadrant R10.32 Active 846243723 Problem Mood disorder F39 Active 81239823 Problem Hypertension, benign I10 Active 32086552 Problem Chronic pain syndrome G89.4 Active 605948014 Problem Attention to urostomy Z43.6 Active 001343186 Problem Anxiety F41.9 Active 12656813 Problem Neuropathy G62.9 Active 689526526 Problem Malignant neoplasm of colon, unspecified part of colon C18.9 Active 866367832 Problem Polyneuropathy G62.9 Active 05918962 Problem Incontinence of feces, unspecified fecal incontinence type R15.9 Active 10940687 Problem Chronic fatigue, unspecified R53.82 Active 265826061 Problem Hydronephrosis with ureteral stricture, not elsewhere classified N13.1 Active 63376446 Problem Primary insomnia F51.01 Active 448083421 Problem 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 468089043 ALLERGIES Substance Reaction Event Type Date Status Morphine itching Drug Allergy May, Active Codeine nausea and vomiting Drug Allergy May, Active ENCOUNTERS Encounter Location Date Diagnosis [facility] [id number] [address] Jun, [facility] [id number] [place] [address] 78375- 9060 May, Neuropathy G62.9 and Hypertension, benign I10 [facility] [id number] [address] Apr, Polyneuropathy G62.9 and Hypertension, benign I10 [facility] [id number] [place] [address] 48149- 5176 17 Mar, 2018 Chronic pain syndrome G89.4 and Hypertension, benign I10 [facility] [id number] [place] [address] 68269- 4638 11 Mar, 2018 Polyneuropathy G62.9 and Hypertension, benign I10 [facility] [id number] [place] [address] 92962- 6294 27 Feb, 2018 [facility] [address] 36835- 1337 16 Feb, 2018 Hypertension, benign I10 [place] [address] 84213- 8343 15 Feb, 2018 Hypertension, benign I10 ; Polyneuropathy G62.9 and Primary insomnia F51.01 [place] [id number] [place] [address] 99083- 1847 17 Jan, 2018 Hypertension, benign I10 and Polyneuropathy G62.9 [place] [id number] [place] [address] 69449- 4674 16 Jan, 2018 Hypertension, benign I10 and Neuropathy G62.9 [place] [id number] [place] [address] 67509- 2789 06 Jan, 2018 [place] [id number] [place] [address] 03881- 9497 Dec, Polyneuropathy G62.9 [place] [id number] [place] [address] 30279- 0107 14 Dec, 2017 Mood disorder F39 [place] [id number] [place] [address] 56678- 1612 November, Polyneuropathy G62.9 [facility] [id number] [place] [address] 34802- 8527 November, Medicare annual wellness visit, initial Z00.00 [place] [id number] [place] [address] 65271- 5744 November, Mood disorder F39 [facility] [id number] [place] [address] 40505- 5096 Oct, Polyneuropathy G62.9 [facility] [id number] [place] [address] 46703- 9917 Oct, [facility] [id number] [place] [address] 36985- 9707 Oct, [facility] [id number] [place] [address] 80662- 4258 Oct, Mood disorder F39 ; Attention to urostomy Z43.6 ; Chronic pain syndrome G89.4 and Polyneuropathy G62.9 [facility] [id number] [place] [address] 76186- 4761 Sep, Polyneuropathy G62.9 [facility] [id number] [place] [address] 61617- 5079 Sep, [facility] [id number] [place] [address] 95853- 5356 Sep, Polyneuropathy G62.9 [facility] [id number] [place] [address] 30977- 1350 Aug, Polyneuropathy G62.9 [facility] [id number] [place] [address] 65074- 3430 Aug, Malignant neoplasm of colon, unspecified part of colon C18.9 and Polyneuropathy G62.9 [facility] [id number] [place] [address] 95251- 5329 Aug, Neuropathy G62.9 and Polyneuropathy G62.9 [facility] [id number] [place] [address] 50490- 9613 Jul, Encounter for drug screening Z02.83 [facility] [id number] [place] [address] 72325- 6486 Jul, Polyneuropathy G62.9 [facility] [address] [address] 6588 Jul, [facility] [id number] [place] [address] 20263- 5766 Jul, Neuropathy G62.9 and Anxiety F41.9 [facility] [id number] [place] [address] 12375- 8586 Jul, [facility] [id number] [place] [address] 17619- 4784 Jul, [facility] [id number] [place] [address] 60284- 8975 Jul, [facility] [id number] [place] [address] 11965- 2520 Jul, Polyneuropathy G62.9 [facility] [id number] [place] [address] 58804- 5130 Jul, [facility] [id number] [place] [address] 01866- 9292 Jun, [facility] [id number] [place] [address] 88969- 7670 Jun, [facility] [id number] [place] [address] 50456- 9060 Jun, [facility] [id number] [place] [address] 07 Jun, 2017 Encounter for dental examination Z01.20 [facility] [id number] [place] [address] 98798- 6664 Jun, Polyneuropathy G62.9 and Anxiety F41.9 [facility] [address] [address] 6425 Jun, [facility] [id number] [address] 20 Nov, 2017 Dental examination Z01.20 [facility] [id number] [place] [address] 07446- 8972 May, Polyneuropathy G62.9 [facility] [id number] [place] [address] 06496- 2974 Apr, Polyneuropathy G62.9 [facility] [id number] [place] [address] 05822- 4853 Apr, Polyneuropathy G62.9 [facility] [address] 59938- 5637 Apr, Hypertension, benign I10 ; Polyneuropathy G62.9 and Anxiety F41.9 [facility] [id number] [place] [address] 41388- 6717 Apr, Primary insomnia F51.01 and Polyneuropathy G62.9 [facility] [address] 47347- 0080 Apr, Primary insomnia F51.01 and Polyneuropathy G62.9 [facility] [id number] [place] [address] 04452- 9092 Mar, Primary insomnia F51.01 [facility] [id number] [place] [address] 85097- 0815 Mar, [facility] [id number] [place] [address] 23164- 2589 Mar, Polyneuropathy G62.9 [facility] [id number] [place] [address] 67702- 7658 Feb, Primary insomnia F51.01 [facility] [id number] [place] [address] 95659- 9670 Feb, [facility] [id number] [place] [address] 51499- 5600 Feb, [facility] [id number] [place] [address] 15165- 5931 Feb, Polyneuropathy G62.9 [facility] [address] [address] 4280 Feb, Primary insomnia F51.01 [facility] [address] [address] 4137 Jan, [facility] [id number] [place] [address] 32616- 5397 Jan, [facility] [id number] [place] [address] 53859- 1652 Dec, [facility] [id number] [place] [address] 53915- 9664 Dec, Primary insomnia F51.01 [facility] [id number] [place] [address] 83320- 2048 Dec, Primary insomnia F51.01 [facility] [id number] [place] [address] 94009- 2022 Dec, [facility] [id number] [place] [address] 49911- 6076 Dec, [facility] [id number] [place] [address] 15545- 4295 Dec, [facility] [address] [address]- 1719 Dec, [facility] [id number] [place] [address] 41141- 7125 November, Primary insomnia F51.01 and Polyneuropathy G62.9 [facility] [address] [address]- 0119 November, [facility] [address] [address]- 5067 November, Abdominal pain, left lower quadrant R10.32 [facility] [address], [place] [address]- 2646 November, [facility] [address] [address]- 1620 Oct, [facility] [id number] [place] [address] 86981- 4354 Oct, Abdominal pain, left lower quadrant R10.32 ; 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 and Neuropathy G62.9 [facility] [id number] [place] [address] 91563- 3161 Oct, [facility] [id number] [place] [address] 97556- 1348 Sep, [facility] [id number] [place] [address] [id number] Sep, [facility] [id number] [place] [address] 45593- 6343 Sep, [facility] [id number] [place] [address] 93430- 7759 Aug, [facility] [id number] [place] [address] 74422- 9041 Aug, [facility] [id number] [place] [address] 64322- 0079 Aug, Abdominal pain, left lower quadrant R10.32 ; Neuropathy G62.9 and Anxiety F41.9 [facility] [address] [place] [address] Jul, [facility] [address] [address]- 1679 Jul, [facility] [id number] [place] [address] 61736 -6689 Jul, [facility] [id number] [place] [address] 87083- 8703 Jul, [facility] [id number] [place] [address] 92897- 6003 Jul, [facility] [address] [facility] [id number] [address]- 6426 Jun, [facility] [address] [facility] [id number] [address]- 1328 May, [facility] [address] [facility] [id number], [place] [address]- 2543 May, [facility] [address] [facility] [id number] [place] [address] 32859 2543 Apr, [facility] [address] [facility] [id number] [address] 254 Apr, Muscle spasms of both lower extremities M62.838 and Cellulitis, unspecified cellulitis site L03.90 [facility] [address] [facility] [id number] [place] [address]- 2538 Apr, [facility] [id number] [place] [address] 36307- 6897 23 Mar, 2015 Generalized abdominal pain R10.84 [facility] [address] [facility] [id number] [address] 2540 20 Mar, 2015 [facility] [address] [facility] [id number] [address]- 254 14 Mar, 2015 [facility] [address] [facility] [id number] [address] 2547 14 Mar, 2015 [facility] [address] [facility] [id number] [address]- 2543 13 Sep, 2015 [facility] [address] [facility] [id number] [address] 2540 12 Sep, 2015 [facility] [address] [facility] [id number] [address] 2548 09 Sep, 2015 [facility] [address] [facility] [id number] [address]- 2542 06 Sep, 2015 [facility] [address] [facility] [id number] [address]- 5948 Feb, Other specified diseases of anus and rectum K62.89 [facility] [address] [facility] [id number] [address]- 1997 Feb, [facility] [id number] [place] [address] 43351- 0960 Feb, Dizziness R42 [facility] [id number] [place] [address] 50712- 4514 Feb, [facility] [id number] [place] [address] 63816- 8037 Jan, Polyneuropathy G62.9 [facility] [id number] [place] [address] 01300- 0292 Jan, Other specified diseases of anus and rectum K62.89 [facility] [address] [address]- 8153 Jan, [facility] [id number] [place] [address] 86417 -3365 Jan, [facility] [id number] [place] [address] 47936- 8262 Jan, [facility] [id number] [place] [address] 10675- 8260 Jan, Dizziness R42 [facility] [address] [address]- 3740 Dec, [facility] [address] [address]- 7481 Dec, [facility] [address] [address]- 8147 Dec, [facility] [id number] [place] [address] 78230- 3990 Dec, Dizziness R42 [facility] [address], [place] [address]- 8087 November, [facility] [address] [address]- 9972 Oct, [facility] [id number] [place] [address] 91588- 8126 Oct, [facility] [id number] [place] [address] 25077- 3495 Oct, [facility] [id number] [place] [address] 85456- 3748 Oct, [facility] [id number] [place] [address] 36357- 8696 Sep, [facility] [id number] [place] [address] 64038- 1640 Sep, Primary insomnia F51.01 [facility] [id number] [place] [address] 23521- 2995 Sep, Primary insomnia F51.01 [facility] [id number] [place] [address] 14189- 3523 Sep, [facility] [id number] [place] [address] 77744- 6101 Aug, [facility] [id number] [place] [address] 78335- 2229 Aug, [facility] [id number] [place] [address] 31991- 7571 Aug, Primary insomnia F51.01 ; Mood disorder F39 ; Nausea and vomiting, unspecified intactability, vomiting of unspecified type R11.2 and Diarrhea R19.7 [facility] [id number] [place] [address] 55768- 4521 Aug, [facility] [id number] [place] [address] 81051- 0969 05 Aug, 2015 Folliculitis L73.9 [facility] [id number] [place] [address] 37905- 0809 Aug, [facility] [id number] [place] [address] 53287- 2726 Aug, [facility] [id number] [place] [address] 83463- 6927 Jul, Folliculitis L73.9 [facility] [id number] [place] [address] 86768- 1109 Jul, [facility] [id number] [place] [address] 00001- 3889 Jun, Folliculitis L73.9 [facility] [id number] [place] [address] 67384- 5624 Jun, [facility] [id number] [place] [address] 43998- 5360 May, Polyneuropathy G62.9 [facility] [id number] [place] [address] 95522- 1948 May, Other specified diseases of anus and rectum K62.89 [facility] [id number] [place] [address] 83319- 5294 May, [facility] [id number] [place] [address] 21394- 0221 May, Primary insomnia F51.01 [facility] [id number] [place] [address] 85903- 9355 May, [facility] [id number] [place] [address] 21497- 3913 May, [facility] [id number] [place] [address] 26307- 0643 Apr, Other specified diseases of anus and rectum K62.89 ; Chronic fatigue R53.82 ; Urinary tract infection, site not specified N39.0 and Enterococcus as the cause of diseases classified elsewhere B95.2 [facility] [id number] [place] [address] 16150- 5427 16 Apr, 2015 [facility] [address] [facility] [id number], [place] [address]- 9172 15 Apr, 2015 [facility] [place] [facility] [address] [facility] [id number] [address]- 5226 14 Apr, 2015 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 [facility] [place] [facility] [address] [facility] [id number] [place] [address]- 7986 05 Apr, 2015 [facility] [place] [facility] [address] [facility] [id number] [place] [address] 05233 254 26 Mar, 2014 [facility] [place] [facility] [address] [facility] [id number] [place] [address] 85173- 8036 23 Mar, 2015 [facility] [place] [facility] [address] [facility] [id number] [place] [address] 45020- 2626 17 Mar, 2015 [facility] [place] [facility] [id number] [place] [address] 11084- 5196 14 Mar, 2015 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 [facility] [address] [facility] [id number] [address]- 0520 12 Mar, 2015 [facility] [place] [facility] [id number] [address]- 2549 11 Mar, 2015 [facility] [id number] [address]- 8867 11 Mar, 2015 [facility] [place] [facility] [id number] [address] 2549 10 Mar, 2015 [facility] [place] [facility] [address] [facility] [id number], [place] [address] 2549 Feb, [facility] [place] [facility] [address] [facility] [id number] [address]- 3086 Feb, [facility] [place] [facility] [address] [facility] [id number], [place] [address]- 2546 Feb, [facility] [place] [facility] [id number] [address]- 8969 Jan, [facility] [address] [facility] [id number] [address]- 0123 Jan, Nausea 787.02 and Neuropathy 355.9 [facility] [id number] [address] Jan, [facility] [address] [id number] [address] Jan, [facility] [id number] [place] [address] Jan, [facility] [id number] [place] [id number] Jan, Dental examination V72.2 [facility] [id number] [place] [address] Jan, [facility] [id number] [place] [address] Dec, [facility] [id number] [address] Dec, [facility] [id number] [place] [address] Dec, Neuropathy 355.9 [facility] [id number] [address] November, [facility] [id number] [address] November, [facility] [address] [facility] [id number] [address] November, [facility] [address] [id number], [place] [address] Oct, [facility] [address] [facility] [id number], [place] [address] Oct, [facility] [id number] [address] Sep, [facility] [place] [facility] [address] [id number] [place] [address] Sep, [facility] [place] [facility] [address] [id number] [place] [address] Sep, [facility] [place] [facility] [address] [id number] [place] [address] Sep, [facility] [place] [facility] [address] [id number] [place] [address] Sep, [facility] [place] [facility] [address] [id number] [place] [address] Sep, [facility] [place] [facility] [address] [id number] [place] [address] Sep, [facility] [place] [facility] [address] [facility] [id number] [place] [address] Sep, [facility] [place] [facility] [address] [id number] [place] [address] Aug, 2014 [facility] [place] [facility] [address] [facility] [id number] [place] [address] Aug, 2014 [facility] [place] [facility] [address] [facility] [id number] [place] [address] Aug, 2014 [facility] [place] [facility] [address] [facility] [id number] [place] [address] Aug, 2014 [facility] [place] [facility] [address] [id number] [address] Aug, 2014 [facility] [place] [facility] [address] [facility] [id number] [place] [address] Aug, 2014 [facility] [place] [facility] [address] [facility] [id number] [place] [address] Aug, 2014 [facility] [place] [facility] [address] [facility] [id number] [place] [address] Aug, 2014 [facility] [place] [facility] [address] [facility] [id number] [place] [address] Jul, [facility] [address] [id number] [place] [address] Jul, [facility] [address] [id number] [place] [address] Jun, [facility] [address] [id number] [place] [address] Jun, [facility] [address] [id number] [place] [address] Jun, [facility] [address] [id number] [place] [address] Jun, [facility] [address] [id number] [place] [address] Jun, [facility] [address] [id number] [place] [address] Jun, [facility] [address] [id number] [place] [address] Jun, [facility] [place] [facility] [address] [id number] [place] [address] 285[address] Jun, [facility] [address] [id number] [place] [address] Jun, [facility] [place] [facility] [address] [id number] [place] [address] Jun, [facility] [place] [facility] [address] [id number] [place] [address] Jun, [facility] [place] [facility] [address] [id number] [place] [address] May, [facility] [place] [facility] [address] [id number] [place] [address] May, [facility] [place] [facility] [address] [id number] [place] [address] May, [facility] [place] [facility] [address] [id number] [place] [address] 74[address] May, [facility] [place] [facility] [address] [id number] [place] [address] May, [facility] [place] [facility] [address] [id number] [place] [address] 27[address] May, [facility] [place] [facility] [address] [id number] [place] [address] 8744 May, [facility] [place] [facility] [address] [id number] [place] [address] May, [facility] [place] [facility] [address] [id number] [place] [address] May, [facility] [place] [facility] [address] [id number] [place] [address]- [address] Apr, [facility] [place] [facility] [address] [id number] [place] [address] Apr, [facility] [place] [facility] [address] [id number] [place] [address] 47[address] Apr, [facility] [place] [facility] [address] [id number] [place] [address]- [address] Apr, [facility] [place] [facility] [address] [id number] [place] [address] Apr, [facility] [place] [facility] [address] [id number] [address] Mar, [facility] [place] [facility] [address] [id number] [place] [address] 1410 Mar, [facility] [place] [facility] [address] [id number] [place] [address]- 5685 Feb, [facility] [place] [facility] [address] [id number] [address] Feb, [facility] [place] [facility] [address] [id number] [address] Feb, [facility] [place] [facility] [address] [id number] [place] [address] Feb, [facility] [place] [facility] [address] [id number] [place] [address] Feb, [facility] [place] [facility] [address] [id number] [place] [address] 8380 Feb, [facility] [place] [facility] [address] [id number] [place] [address] 4[address] Jan, [facility] [place] [facility] [address] [id number] [place] [address] 1414 Jan, [facility] [place] [facility] [address] [id number] [place] [address]- 90[address] Jan, [facility] [place] [facility] [address] [id number] [place] [address]- 8870 Jan, [facility] [place] [facility] [address] [id number] [place] [address]- 2738 Jan, [facility] [place] [facility] [address] [id number] [place] [address] Jan, [facility] [place] [facility] [address] [id number] [place] [address]- 9572 Jan, [facility] [place] [facility] [address] [id number] [place] [address]- [address] Jan, [facility] [place] [facility] [address] [id number] [place] [address]- 8690 Jan, [facility] [place] [facility] [address] [id number] [place] [address]- 9625 Jan, [facility] [place] [facility] [address] [id number] [place] [address]- 8566 Jan, [facility] [place] [facility] [address] [id number] [place] [address]- 8993 Dec, [facility] [place] [facility] [address] [id number] [place] [address] Dec, [facility] [place] [facility] [address] [id number] [place] [address]- 7610 Dec, [facility] [place] [facility] [address] [id number] [place] [address] Dec, [facility] [place] [facility] [address] [id number] [place] [address]- 9852 Dec, [facility] [place] [facility] [address] [id number] [place] [address] 8993 Dec, [facility] [place] [facility] [address] [id number] [place] [address] 2010 November, [facility] [place] [facility] [address] [id number] [place] [address] November, [facility] [place] [facility] [address] [id number] [place] [address]- 5576 November, [facility] [place] [facility] [address] [id number] [place] [address] 3739 November, [facility] [place] [facility] [address] [id number] [place] [address]- 1297 November, [facility] [place] [facility] [address] [id number] [place] [address] 9821 November, [facility] [place] [facility] [address] [id number] [place] [address] 6912 Oct, [facility] [place] [facility] [address] [id number] [place] [address]- 0089 Oct, [facility] [place] [facility] [address] [id number] [place] [address] 4354 Oct, [facility] [place] [facility] [address] [id number] [place] [address] Oct, [facility] [place] [facility] [address] [id number] [place] [address]- 477[address] Sep, [facility] [address] [id number] [place] [address]- 4[address] 17 Sep, 2013 [facility] [place] [facility] [address] [id number] [place] [address]- 2717 Sep, [facility] [place] [facility] [address] [id number] [place] [address]- 6546 Sep, [facility] [place] [facility] [address] [id number] [place] [address]- 5682 Sep, [facility] [address] [id number] [place] [address]- 0492 Aug, [facility] [place] [facility] [address] [id number] [place] [address]- 0076 Aug, [facility] [address] [id number] [place] [address]- 8950 Aug, [facility] [address] [id number] [place] [address]- 1832 Aug, [facility] [address] [id number] [place] [address]- 6[address] Aug, [facility] [place] [address] [place] [id number] May, [facility] [address] [id number], [place] [address] May, [facility] [place] [facility] [address] [id number], [place] [address]- 4238 May, [facility] [place] [facility] [address] [id number] [place] [address]- 2665 May, [facility] [place] [facility] [address] [id number] [place] [address]- 4525 May, [facility] [place] [facility] [address] [id number] [place] [address]- 8432 Apr, [facility] [place] [facility] [address] [id number] [place] [address]- 7040 Apr, [facility] [address] [id number] [place] [address]- 0890 Apr, [facility] [place] [facility] [address] [id number] [place] [address]- 8410 Apr, [facility] [place] [facility] [address] [id number] [place] [address]- 7954 Apr, [facility] [place] [facility] [address] [id number] [place] [address]- 9833 Apr, [facility] [place] [facility] [address] [id number] [place] [address]- 8982 Apr, [facility] [place] [facility] [address] [id number] [place] [address]- 5493 28 Mar, 2013 [facility] [place] [facility] [address] [id number] [place] [address]- 4032 25 Mar, 2012 [facility] [place] [facility] [address] [id number] [place] [address]- 4152 24 Mar, 2012 [facility] [place] [facility] [address] [id number] [place] [address]- 1110 16 Mar, 2012 [facility] [place] [facility] [address] [id number] [place] [address]- 4400 12 Mar, 2013 [facility] [place] [facility] [address] [id number] [place] [address]- 3385 06 Mar, 2012 [facility] [place] [facility] [address] [id number], [place] [address]- 8503 Feb, [facility] [place] [facility] [address] [id number] [place] [address]- 5341 Feb, [facility] [place] [facility] [address] [id number] [place] [address]- 9001 Feb, [facility] [place] [facility] [address] [id number] [place] [address]- 2053 Feb, [facility] [place] [facility] [address] [id number] [place] [address]- 6223 Feb, [facility] [place] [facility] [address] [id number] [place] [address]- 6159 Feb, [facility] [place] [facility] [address] [id number] [place] [address]- 7647 Jan, [facility] [place] [facility] [address] [id number] [place] [address]- 2131 Dec, [facility] [place] [facility] [address] [id number] [place] [address]- 9864 Dec, [facility] [place] [facility] [address] [id number] [place] [address]- 4244 Dec, [facility] [place] [facility] [address] [id number] [place] [address]- 8424 Dec, [facility] [place] [facility] [address] [id number] [place] [address]- 0277 Dec, [facility] [place] [facility] [address] [id number] [place] [address]- 6384 Dec, [facility] [place] [facility] [address] [id number] [place] [address]- 9666 Dec, [facility] [place] [facility] [address] [id number] [place] [address]- 7739 Dec, [facility] [place] [facility] [address] [id number] [place] [address]- 0681 Dec, [facility] [place] [facility] [address] [id number] [place] [address]- 2341 November, [facility] [place] [facility] [address] [id number] [place] [address]- 2254 November, [facility] [place] [facility] [address] [id number] [place] [address] Oct, [facility] [place] [facility] [address] [id number] [place] [address]- 1851 Sep, [facility] [address] [id number] [address] 36[address] Sep, [facility] [id number] [address]- 36[address] Sep, [facility] [id number] [address] Sep, [facility] [address] [id number] [address] Aug, [facility] [id number] [address] Aug, [facility] [id number] [place] [address] Jul, [facility] [id number], [place] [address]- 5999 Jul, [facility] [id number] [place] [address] 9320 Jul, [facility] [id number], [place] [address]- 9525 Sep, [facility] [id number], [place] [address]- 7886 Sep, [facility] [id number] [address]- 75[address] Sep, IMMUNIZATIONS No Known Immunizations SOCIAL HISTORY Never Assessed REASON FOR VISIT PT reports no concerns at this time. -Quintin LIRA PLAN OF CARE VITAL SIGNS Height 67 in 2018-05-21 Weight 202.2 lbs 2018-05-21 Temperature 97.5 degrees Fahrenheit 2018-05-21 Heart Rate 118 bpm 2018-05-21 Respiratory Rate 20 2018-05-21 Oximetry 97 % 2018-05-21 BMI 31.67 kg/m2 2018-05-21 Blood pressure systolic 128 mmHg 2018-05-21 Blood pressure diastolic 78 mmHg 2018-05-21 MEDICATIONS Medication Instructions Dosage Frequency Start Date End Date Duration Status Acyclovir 5 % Externally Five times a day 1 application to affected area Dec, Active Zoloft 100 mg Orally Once a day 1 tablet 24h Active Lyrica 150 MG Orally 3 times a day 1 capsule 8h Feb, 28 days Active Amlodipine Besylate 10 mg Orally Once a day 1 tablet 24h Feb, Active Percocet 10-325 MG Orally every 4 hrs 1 tablet 4h May, 28 days Active Acyclovir 400 mg Orally Twice a day 1 tablet 12h Feb, Active Oxycodone HCl 30 MG Orally 2 times a day 1 tablet as needed 12h May, 28 days Active Wheelchair 1 as directed Dec, Active Blood Pressure Monitor 1 as directed Feb, Active Incontinence Brief Large 1 as directed Aug, Active Promethazine HCl 25 TAKE ONE TABLET BY MOUTH EVERY 6 HOURS NEEDED FOR NAUSEA AND VOMITING 30 days Active RESULTS No Results PROCEDURES Procedure Date Ordered Result Body Site [facility] VISIT ESTABLISHED PATIENT May 21, 2018 INSTRUCTIONS MEDICATIONS ADMINISTERED No Known Medications MEDICAL (GENERAL) HISTORY Type Description Date Medical History Gerd, gastroparesis Medical History depression Medical History Rectal cancer s/p chemo and radiation:last chemo 07/16/14 dc' d due to intolerance, no evidence of recurrent disease on PET scan 10/08/13 Medical History dizziness Medical History liver enzymes elevated Surgical History colon resection with ileostomy by dr. Cook d/t rectal cancer 12/06/12 Surgical History bladder removal 2012 Surgical History broken left arm 04/2017 Hospitalization History abd pain anemia, recurrent UTI 10/15/13 Hospitalization History colon resection with ileostomy by dr. Cook d/t rectal cancer Hospitalization History Intractable n/v, chronic, abd pain, acute renal 03/27 Hospitalization History [facility] for dizziness and nausea 12/07/15 Hospitalization History UTI, AMS-[facility] 09/21/16 Hospitalization History Large bowel obstruction, Dehydration-[facility] 01/01/17 Hospitalization History [facility]- UTI/Sepsis 01/18/2018
--- OUTSIDE RECORDS SUMMARY | 2018-06-09 17:12 | XMS REPORT ---
Author Author LINDA BENTLEY Organization [facility] Address [address] [place] [address] Care Team Providers Care [employer] Secretary Name Role Phone LINDA BENTLEY Unavailable PROBLEMS Type Condition ICD9-CM Code [id number] Code Onset Dates Condition Status SNOMED Code Problem Abdominal pain, left lower quadrant R10.32 Active 320638823 Problem Mood disorder F39 Active 68933964 Problem Hypertension, benign I10 Active 11883207 Problem Chronic pain syndrome G89.4 Active 527284608 Problem Attention to urostomy Z43.6 Active 083228955 Problem Anxiety F41.9 Active 45738146 Problem Neuropathy G62.9 Active 389270930 Problem Malignant neoplasm of colon, unspecified part of colon C18.9 Active 401081113 Problem Polyneuropathy G62.9 Active 03550045 Problem Incontinence of feces, unspecified fecal incontinence type R15.9 Active 18012166 Problem Chronic fatigue, unspecified R53.82 Active 173552814 Problem Hydronephrosis with ureteral stricture, not elsewhere classified N13.1 Active 76149251 Problem Primary insomnia F51.01 Active 155056734 Problem 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 337401042 ALLERGIES Substance Reaction Event Type Date Status Morphine itching Drug Allergy Mar, Active Codeine nausea and vomiting Drug Allergy Mar, Active ENCOUNTERS Encounter Location Date Diagnosis [facility] [id number] [place] [address] 64665- 5555 Mar, Chronic pain syndrome G89.4 and Hypertension, benign I10 [facility] [id number] [place] [address] 64979- 4841 Mar, Polyneuropathy G62.9 and Hypertension, benign I10 [facility] [address] [address] 4[address] Feb, [facility] [address] [address]- 0494 16 Feb, 2018 Hypertension, benign I10 [facility] [id number] [place] [address] 37247- 0375 15 Feb, 2018 Hypertension, benign I10 ; Polyneuropathy G62.9 and Primary insomnia F51.01 [facility] [id number] [place] [address] 11946- 7830 Jan, Hypertension, benign I10 and Polyneuropathy G62.9 [facility] [id number] [place] [address] 85294- 2555 Jan, Hypertension, benign I10 and Neuropathy G62.9 [facility] [id number] [place] [address] 13975- 0876 Jan, [facility] [id number] [place] [address] 10451- 9293 Dec, Polyneuropathy G62.9 [facility] [address] [address]- 9482 Dec, Mood disorder F39 [facility] [id number] [place] [address] 05355- 4624 November, Polyneuropathy G62.9 [facility] [address] [address]- 0681 November, Medicare annual wellness visit, initial Z00.00 [facility] [address] [address]- 4986 November, Mood disorder F39 [facility] [address] [address]- 4664 Oct, Polyneuropathy G62.9 [facility] [address] [address]- 5511 Oct, [facility] [address] [address]- 6370 Oct, [facility] [id number] [place] [address] 00403- 7760 Oct, Mood disorder F39 ; Attention to urostomy Z43.6 ; Chronic pain syndrome G89.4 and Polyneuropathy G62.9 [facility] [id number] [place] [address] 02827- 4348 Sep, Polyneuropathy G62.9 [facility] [address] 22288- 9163 Sep, [facility] [id number] [place] [address] 63468- 2394 Sep, Polyneuropathy G62.9 [facility] [id number] [place] [address] 26928- 4677 Aug, Polyneuropathy G62.9 [facility] [id number] [place] [address] 31624- 5758 Aug, Malignant neoplasm of colon, unspecified part of colon C18.9 and Polyneuropathy G62.9 [facility] [id number] [place] [address] 69145- 4982 Aug, Neuropathy G62.9 and Polyneuropathy G62.9 [facility] [id number] [place] [address] 23781- 8595 Jul, Encounter for drug screening Z02.83 [facility] [id number] [place] [address] 57032- 0871 Jul, Polyneuropathy G62.9 [facility] [id number] [place] [address] 95632- 5802 Jul, [facility] [id number] [place] [address] 99586- 6659 Jul, Neuropathy G62.9 and Anxiety F41.9 [facility] [id number] [place] [address] 31282- 7771 Jul, [facility] [address] [address]- 5270 Jul, [facility] [address] [address]- 9943 Jul, [facility] [address] [address]- 9126 Jul, Polyneuropathy G62.9 [facility] [id number] [place] [address] 51121- 8089 Jul, [facility] [id number] [place] [address] 30325- 9002 Jun, [facility] [id number] [place] [address] 82238- 0749 Jun, [facility] [id number] [place] [address] 64674- 1708 Jun, [facility] [id number] [place] [address] 07 Jun, 2017 Encounter for dental examination Z01.20 [facility] [id number] [place] [address] 82299- 2525 Jun, Polyneuropathy G62.9 and Anxiety F41.9 [facility] [address] [address]- 0202 Jun, [facility] [id number] [place] [address] May, Dental examination Z01.20 [facility] [address] [address]- 0070 May, Polyneuropathy G62.9 [facility] [address] [address]- 7441 Apr, Polyneuropathy G62.9 [facility] [address] [address]- 9309 Apr, Polyneuropathy G62.9 [facility] [id number] [place] [address] 29318- 2215 Apr, Hypertension, benign I10 ; Polyneuropathy G62.9 and Anxiety F41.9 [facility] [id number] [place] [address] 61864- 4925 Apr, Primary insomnia F51.01 and Polyneuropathy G62.9 [facility] [address] 89924- 0728 Apr, Primary insomnia F51.01 and Polyneuropathy G62.9 [facility] [id number] [place] [address] 37308- 4444 Mar, Primary insomnia F51.01 [facility] [id number] [place] [address] 47672- 0389 Mar, [facility] [address] 02588- 4786 Mar, Polyneuropathy G62.9 [facility] [id number] [place] [address] 69350- 4117 Feb, Primary insomnia F51.01 [facility] [id number] [place] [address] 34056- 6426 Feb, [facility] [id number] [place] [address] 90177- 4813 Feb, [facility] [id number] [place] [address] 69219- 3945 Feb, Polyneuropathy G62.9 [facility] [id number] [place] [address] 03078- 7417 Feb, Primary insomnia F51.01 [facility] [id number] [place] [address] 34261- 2927 Jan, [facility] [id number] [place] [address] 28112- 2644 Jan, [facility] [address] [address]- 7234 Dec, [facility] [id number] [place] [address] 62670- 3719 Dec, Primary insomnia F51.01 [facility] [address] [address]- 2264 Dec, Primary insomnia F51.01 [facility] [id number] [place] [address] 34885- 5869 Dec, [facility] [id number] [place] [address] 87587- 2537 Dec, [facility] [id number] [place] [address] 98569- 4926 Dec, [facility] [id number] [place] [address] 78999- 3498 Dec, [facility] [id number] [place] [address] 25919- 3689 November, Primary insomnia F51.01 and Polyneuropathy G62.9 [facility] [id number] [place] [address] 28904- 8348 November, [facility] [id number] [place] [address] 38516- 2297 November, Abdominal pain, left lower quadrant R10.32 [facility] [address] [address]- 9370 November, [facility] [address] [address]- 1702 Oct, [facility] [id number] [place] [address] 59912- 4696 Oct, Abdominal pain, left lower quadrant R10.32 ; 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 and Neuropathy G62.9 [facility] [id number] [place] [address] 03575- 7238 Oct, [facility] [id number] [place] [address] 94889- 3472 Sep, [facility] [id number] [place] [address] [id number] Sep, [facility] [id number] [place] [address] 64516- 0130 Sep, [facility] [place] [facility] [id number] [place] [address] 49794- 3365 Aug, [facility] [id number] [place] [address] 48369- 5068 Aug, [facility] [id number] [place] [address] 592062- 6785 Aug, Abdominal pain, left lower quadrant R10.32 ; Neuropathy G62.9 and Anxiety F41.9 [facility] [address] [place] [address] Jul, [facility] [id number] [place] [address] 45368- 7130 Jul, [facility] [id number] [place] [address] 65551 -8304 Jul, [facility] [id number] [place] [address] 26577- 9645 Jul, [facility] [place] [facility] [id number] [place] [address] 23786- 3474 Jul, [facility] [id number] [place] [address] 88959- 3726 Jun, [facility] [id number] [place] [address] 46992- 2807 May, [facility] [id number] [place] [address] 07673- 5096 May, [facility] [id number] [place] [address] 16467- 4008 Apr, [facility] [address] [address]- 4832 Apr, Muscle spasms of both lower extremities M62.838 and Cellulitis, unspecified cellulitis site L03.90 [facility] [address] [address]- 4488 Apr, [facility] [id number] [place] [address] 78238- 1815 23 Mar, 2016 Generalized abdominal pain R10.84 [facility] [id number] [place] [address] 86669- 9621 20 Mar, 2016 [facility] [id number] [place] [address] 50012- 0894 14 Mar, 2016 [facility] [id number] [place] [address] 91729- 5214 14 Mar, 2016 [facility] [id number] [place] [address] 44613- 9967 13 Mar, 2016 [facility] [id number] [place] [address] 51961- 7732 12 Mar, 2016 [facility] [id number] [place] [address] 21719- 7670 09 Mar, 2016 [facility] [id number] [place] [address] 09087- 6792 06 Mar, 2016 [facility] [id number] [place] [address] 26609- 0469 Feb, Other specified diseases of anus and rectum K62.89 [facility] [id number] [place] [address] 51124- 0954 15 Feb, 2016 [facility] [id number] [place] [address] 61300- 1362 Feb, Dizziness R42 [facility] [id number] [place] [address] 74179- 0022 Feb, [facility] [address] [facility] [id number] [place] [address]- 6074 Jan, Polyneuropathy G62.9 [facility] [address] [facility] [id number] [place] [address]- 4885 Jan, Other specified diseases of anus and rectum K62.89 [facility] [address] [facility] [id number] [place] [address]- 5066 Jan, [facility] [address] [id number] [place] [address] -1093 Jan, [facility] [address] [facility] [id number] [place] [address], [place] [address]- 2452 Jan, [facility] [address] [facility] [id number] [place] [address]- 4308 Jan, Dizziness R42 [facility] [address] [place] [address]- 3418 Dec, [facility] [address] [facility] [id number] [place] [address]- 4800 Dec, [facility] [address] [place] [address]- 1782 Dec, [facility] [id number] [place] [address]- 5970 Dec, Dizziness R42 [facility] [address] [place] [address]- 4299 November, [facility] [address] [facility] [id number] [place] [address] 2549 Oct, [facility] [address] [facility] [id number] [place] [address]- 1274 Oct, [facility] [address] [facility] [id number] [place] [address]- 3464 Oct, [facility] [address] [place] [address]- 7571 Oct, [facility] [address] [address]- 8565 Sep, [facility] [id number] [place] [address] 42655- 8752 Sep, Primary insomnia F51.01 [facility] [id number] [place] [address] 12332- 1941 Sep, Primary insomnia F51.01 [facility] [id number] [place] [address] 94439- 3662 Sep, [facility] [id number] [place] [address] 06973- 5333 Aug, [facility] [id number] [place] [address] 81423- 3646 Aug, [facility] [id number] [place] [address] 31242- 0677 Aug, Primary insomnia F51.01 ; Mood disorder F39 ; Nausea and vomiting, unspecified intactability, vomiting of unspecified type R11.2 and Diarrhea R19.7 [facility] [id number] [place] [address] 54714- 6337 Aug, [facility] [id number] [place] [address] 53228- 6911 Aug, Folliculitis L73.9 [facility] [id number] [place] [address] 88316- 3305 Aug, [facility] [id number] [place] [address] 32818- 9906 Aug, [facility] [id number] [place] [address] 21795- 6110 Jul, Folliculitis L73.9 [facility] [id number] [place] [address] 82880- 3707 Jul, [facility] [id number] [place] [address] 95469- 3135 Jun, Folliculitis L73.9 [facility] [id number] [place] [address] 26900- 4617 Jun, [facility] [id number] [place] [address] 13387- 7881 May, Polyneuropathy G62.9 [facility] [id number] [place] [address] 61258- 4080 May, Other specified diseases of anus and rectum K62.89 [place] [id number] [place] [address] 65440- 9807 May, [place] [id number] [place] [address] 47940- 0073 May, Primary insomnia F51.01 [place] [id number] [place] [address] 41467- 6421 May, [facility] [id number] [place] [address] 85084- 4349 May, [facility] [id number] [place] [address] 14454- 7880 Apr, Other specified diseases of anus and rectum K62.89 ; Chronic fatigue R53.82 ; Urinary tract infection, site not specified N39.0 and Enterococcus as the cause of diseases classified elsewhere B95.2 [place] [id number] [place] [address] 07347- 5567 Apr, [facility] [id number] [place] [address] 16849- 3160 Apr, [facility] [id number] [place] [address] 42450- 4808 Apr, 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 [address] [facility] [id number] [address]- 9856 23 Mar, 2014 [facility] [address] [address] 2546 17 Mar, 2015 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 [id number] [address] 2545 12 Mar, 2015 [facility] [address] [address] 2546 11 Mar, 2015 [facility] [address] [address]- 2594 11 Mar, 2015 [facility] [address] [address]- 8440 10 Mar, 2015 [facility] [address] [address]- 0869 Feb, [facility] [address] [address]- 7882 Feb, [facility] [address] [address]- 0409 Feb, [facility] [address] [address] 2544 30 Jan, 2015 [facility] [id number] [address]- 2541 Jan, Nausea 787.02 and Neuropathy 355.9 [facility] [id number] [address]- 2546 Jan, [facility] [id number] [address] 2546 Jan, [facility] [address] [place] [address]- 3926 Jan, [facility] [address] [id number] [place] [id number] Jan, Dental examination V72.2 [facility] [address] [id number] [place] [address]- 2546 Jan, [facility] [address] [id number] [place] [address] Dec, [facility] [address] [id number] [place] [address] Dec, [facility] [address] [id number] [place] [address] Dec, Neuropathy 355.9 [facility] [address] [facility] [id number] [place] [address] November, [facility] [address] [facility] [id number] [place] [address] November, [facility] [address] [id number] [place] [address] November, [facility] [id number] [place] [address] Oct, [facility] [address] [facility] [id number] [place] [address] Oct, [facility] [place] [facility] [address] [id number] [address] Sep, [facility] [place] [facility] [address] [id number] [place] [address] Sep, [facility] [place] [facility] [address] [id number] [place] [address] Sep, [facility] [place] [facility] [address] [id number] [place] [address] Sep, [facility] [place] [facility] [address] [id number] [address] Sep, [facility] [place] [facility] [address] [id number] [place] [address] Sep, [facility] [place] [facility] [address] [id number] [place] [address] Sep, [facility] [place] [facility] [address] [facility] [id number] [place] [address] Sep, [facility] [place] [facility] [address] [id number] [place] [address] Aug, 2014 [facility] [place] [facility] [address] [id number] [place] [address] Aug, 2014 [facility] [place] [facility] [address] [facility] [id number] [place] [address] Aug, 2014 [facility] [place] [facility] [address] [facility] [id number] [place] [address] Aug, 2014 [facility] [place] [facility] [address] [facility] [id number] [place] [address] Aug, 2014 [facility] [place] [facility] [address] [facility] [id number] [place] [address] Aug, 2014 [facility] [place] [facility] [address] [facility] [id number] [place] [address] Aug, [facility] [place] [facility] [address] [facility] [id number] [place] [address] Aug, 2014 [facility] [place] [facility] [address] [facility] [id number] [place] [address] Jul, [facility] [place] [facility] [address] [facility] [id number] [place] [address] Jul, [facility] [place] [facility] [address] [facility] [id number] [place] [address] Jun, [facility] [place] [facility] [address] [facility] [id number] [address] Jun, [facility] [place] [facility] [address] [id number] [place] [address] Jun, [facility] [place] [facility] [address] [id number] [place] [address] Jun, [facility] [place] [facility] [address] [id number] [place] [address] Jun, [facility] [place] [facility] [address] [id number] [place] [address] Jun, [facility] [place] [facility] [address] [id number] [place] [address]90 Jun, [facility] [place] [facility] [address] [id number] [place] [address] Jun, [facility] [place] [facility] [address] [id number] [place] [address] 8469 Jun, [facility] [place] [facility] [address] [id number] [place] [address] 4966 Jun, [facility] [place] [facility] [address] [id number] [place] [address] Jun, [facility] [place] [facility] [address] [id number] [place] [address] May, [facility] [place] [facility] [address] [id number] [place] [address] 6605 May, [facility] [place] [facility] [address] [id number] [place] [address] 7992 May, [facility] [place] [facility] [address] [id number] [place] [address] 9490 May, [facility] [place] [facility] [address] [id number] [place] [address] 8708 May, [facility] [place] [facility] [address] [id number] [place] [address] 6008 May, [facility] [place] [facility] [address] [id number] [place] [address] 0376 May, [facility] [place] [facility] [address] [id number] [place] [address]- 2284 May, [facility] [place] [facility] [address] [id number] [place] [address] 8453 May, [facility] [place] [facility] [address] [id number] [place] [address]- 9665 Apr, [facility] [place] [facility] [address] [id number] [place] [address] 2080 Apr, [facility] [place] [facility] [address] [id number] [place] [address]- 45[address] Apr, [facility] [place] [facility] [address] [id number] [place] [address]- 64[address] Apr, [facility] [place] [facility] [address] [id number] [place] [address]- 7764 Apr, [facility] [place] [facility] [address] [id number] [place] [address]- 9962 Mar, [facility] [place] [facility] [address] [id number] [place] [address] 4458 Mar, [facility] [place] [facility] [address] [id number] [place] [address]- 1720 Feb, [facility] [place] [facility] [address] [id number] [place] [address]- 6169 Feb, [facility] [place] [facility] [address] [id number] [place] [address]- 9595 Feb, [facility] [place] [facility] [address] [id number] [place] [address]- [address] Feb, [facility] [place] [facility] [address] [id number] [place] [address]- 0879 Feb, [facility] [place] [facility] [address] [id number] [place] [address] 6102 Feb, [facility] [place] [facility] [address] [id number] [place] [address]- 8090 Jan, [facility] [place] [facility] [address] [id number] [place] [address]- 9535 Jan, [facility] [place] [facility] [address] [id number] [place] [address] 2096 Jan, [facility] [place] [facility] [address] [id number] [place] [address]- 0804 Jan, [facility] [place] [facility] [address] [id number] [place] [address]- 8099 Jan, [facility] [place] [facility] [address] [id number] [place] [address] 0509 Jan, [facility] [place] [facility] [address] [id number] [place] [address]- 7497 Jan, [facility] [place] [facility] [address] [id number] [place] [address] 4900 Jan, [facility] [place] [facility] [address] [id number] [place] [address] 1271 Jan, [facility] [place] [facility] [address] [id number] [place] [address]- 9614 Jan, [facility] [place] [facility] [address] [id number] [place] [address]- 8013 Jan, [facility] [place] [facility] [address] [id number] [place] [address]- 6687 Dec, [facility] [place] [facility] [address] [id number] [place] [address]- 4887 Dec, [facility] [place] [facility] [address] [id number] [place] [address]- 1592 Dec, [facility] [place] [facility] [address] [id number] [place] [address] 9266 Dec, [facility] [place] [facility] [address] [id number] [place] [address]- 9299 Dec, [facility] [place] [facility] [address] [id number] [place] [address]- 5840 Dec, [facility] [place] [facility] [address] [id number] [place] [address]- 9316 November, [facility] [place] [facility] [address] [id number] [place] [address]- 2028 November, [facility] [place] [facility] [address] [id number] [place] [address]- 5026 November, [facility] [place] [facility] [address] [id number] [place] [address]- 5321 November, [facility] [place] [facility] [address] [id number] [place] [address]- 0917 November, [facility] [place] [facility] [address] [id number] [place] [address]- 7023 November, [facility] [place] [facility] [address] [id number] [place] [address]- 8474 Oct, [facility] [place] [facility] [address] [id number] [place] [address]- 1233 Oct, [facility] [place] [facility] [address] [id number] [place] [address]- 0980 Oct, [facility] [place] [facility] [address] [id number] [place] [address] 6332 Oct, [facility] [place] [facility] [address] [id number] [place] [address] 9654 17 Sep, 2013 [facility] [place] [facility] [address] [id number] [place] [address]- 4995 17 Sep, 2013 [facility] [place] [facility] [address] [id number] [place] [address]- 6368 13 Sep, 2013 [facility] [place] [facility] [address] [id number] [place] [address]- 1583 03 Sep, 2013 [facility] [place] [facility] [address] [id number] [address] 28[address] Sep, [facility] [address] [id number] [place] [address]- 2928 Aug, [facility] [address] [id number] [place] [address]- 3115 Aug, [facility] [address] [id number] [place] [address]- 5052 Aug, [facility] [address] [id number] [place] [address]- 7510 Aug, [facility] [address] [id number] [place] [address]- 9907 Aug, [facility] [place] [id number] May, [facility] [address] [id number] [place] [address]- 1048 May, [facility] [address] [id number] [place] [address]- 2263 May, [facility] [address] [id number] [place] [address]- 8711 May, [facility] [address] [id number] [place] [address]- 2587 May, [facility] [address] [id number] [place] [address]- 8178 Apr, [facility] [address] [id number] [place] [address]- 0769 Apr, [facility] [address] [id number] [place] [address]- 0775 Apr, [facility] [address] [id number] [place] [address]- 4489 Apr, [facility] [address] [id number] [place] [address]- 7546 Apr, [facility] [address] [id number] [place] [address]- 3969 Apr, [facility] [address] [id number] [place] [address]- 5572 Apr, [facility] [place] [facility] [address] [id number] [place] [address]- 9862 Mar, [facility] [address] [id number] [place] [address]- 9526 Mar, [facility] [address] [id number] [place] [address]- 7028 24 Mar, 2013 [facility] [address] [id number] [place] [address]- 8520 16 Mar, 2013 [facility] [address] [id number] [place] [address]- 9077 Mar, [facility] [address] [id number] [place] [address]- 8937 Mar, [facility] [address] [id number] [place] [address]- 1745 Feb, [facility] [address] [id number] [place] [address]- 0412 Feb, [facility] [address] [id number] [place] [address]- 7371 Feb, [facility] [place] [facility] [address] [id number] [place] [address]- 5982 Feb, [facility] [address] [id number] [place] [address]- 1010 Feb, [facility] [place] [facility] [address] [id number] [place] [address]- 6537 Feb, [facility] [place] [facility] [address] [id number] [place] [address]- 6853 Jan, [facility] [place] [facility] [address] [id number] [place] [address]- 8281 Dec, [facility] [place] [facility] [address] [id number] [place] [address]- 8656 Dec, [facility] [place] [facility] [address] [id number] [place] [address]- 5989 Dec, [facility] [place] [facility] [address] [id number] [place] [address]- 0227 Dec, [facility] [place] [facility] [address] [id number] [place] [address]- 3231 Dec, [facility] [place] [facility] [address] [id number] [place] [address]- 1275 Dec, [facility] [place] [facility] [address] [id number] [place] [address]- 8136 Dec, [facility] [place] [facility] [address] [id number] [place] [address]- 2866 Dec, [facility] [place] [facility] [address] [id number] [place] [address]- 9873 Dec, [facility] [place] [facility] [address] [id number] [place] [address]- 8758 November, [facility] [place] [facility] [address] [id number] [place] [address]- 6968 November, [facility] [place] [facility] [address] [id number] [place] [address]- 7635 Oct, [facility] [place] [facility] [address] [id number] [place] [address]- 2480 Sep, [facility] [place] [facility] [address] [id number] [place] [address]- 6810 Sep, [facility] [place] [facility] [address] [id number] [place] [address]- 1128 15 Sep, 2012 [facility] [place] [facility] [address] [id number] [place] [address]- 5789 Sep, [facility] [place] [facility] [address] [id number] [place] [address]115 Aug, [facility] [id number] [address] Aug, [facility] [id number] [address] Jul, [facility] [id number] [address] 3914 Jul, [facility] [id number] [address]- 0685 Jul, [facility] [id number] [place] [address] 1979 Sep, [facility] [id number] [address]- 2247 Sep, [facility] [id number] [address] 2849 Sep, IMMUNIZATIONS No Known Immunizations SOCIAL HISTORY Never Assessed REASON FOR VISIT Pain management (chronic), PDM , Wants to discuss BP meds and get them straighted out. BP has been running high CBrumback PLAN OF CARE VITAL SIGNS Height 67 in 2018-04-02 Weight 209.5 lbs 2018-04-02 Temperature 98.1 degrees Fahrenheit 2018-04-02 Heart Rate 76 bpm 2018-04-02 Respiratory Rate 16 2018-04-02 BMI 32.81 kg/m2 2018-04-02 Blood pressure systolic 142 mmHg 2018-04-02 Blood pressure diastolic 90 mmHg 2018-04-02 MEDICATIONS Medication Instructions Dosage Frequency Start Date End Date Duration Status Incontinence Brief Large 1 as directed Aug, Active Wheelchair 1 as directed Dec, Active Lyrica 150 MG Orally 3 times a day 1 capsule 8h Feb, 28 days Active Acyclovir 5 % Externally Five times a day 1 application to affected area Dec, Active Percocet 10-325 MG Orally every 4 hrs 1 tablet 4h Mar, 28 days Active Promethazine HCl 25 TAKE ONE TABLET BY MOUTH EVERY 6 HOURS NEEDED FOR NAUSEA AND VOMITING 30 days Active Acyclovir 400 mg Orally Twice a day 1 tablet 12h 27 Feb, 2018 Active Oxycodone HCl 30 MG Orally 2 times a day 1 tablet as needed 12h 12 Mar, 2018 28 days Active Amlodipine Besylate 10 mg Orally Once a day 1 tablet 24h Feb, Active Zoloft 100 mg Orally Once a day 1 tablet 24h 30 Active Blood Pressure Monitor 1 as directed Feb, Active RESULTS No Results PROCEDURES Procedure Date Ordered Result Body Site LAB NOT BILLED BY [facility] Apr 02, 2018 FQ VISIT ESTABLISHED PATIENT Apr 02, 2018 INSTRUCTIONS MEDICATIONS ADMINISTERED No Known Medications [...] dizziness and nausea 12/07/15 Hospitalization History UTI, AMS-[facility] 09/21/16 Hospitalization History Large bowel obstruction, Dehydration-[facility] 01/01/17 Hospitalization History [facility]- UTI/Sepsis 01/18/2018
--- OUTSIDE RECORDS SUMMARY | 2018-06-09 17:12 | XMS REPORT ---
Author Author LINDA BENTLEY Organization [facility] Address [address] [place] [address] Care Team Providers Care Billet Inspector Name Role Phone LINDA BENTLEY Unavailable PROBLEMS Type Condition ICD9-CM Code [id number] Code Onset Dates Condition Status SNOMED Code Problem Abdominal pain, left lower quadrant R10.32 Active 217360721 Problem Mood disorder F39 Active 33300883 Problem Hypertension, benign I10 Active 14990357 Problem Chronic pain syndrome G89.4 Active 717070210 Problem Attention to urostomy Z43.6 Active 217551982 Problem Anxiety F41.9 Active 75502571 Problem Neuropathy G62.9 Active 987400675 Problem Malignant neoplasm of colon, unspecified part of colon C18.9 Active 078157065 Problem Polyneuropathy G62.9 Active 28855524 Problem Incontinence of feces, unspecified fecal incontinence type R15.9 Active 33434468 Problem Chronic fatigue, unspecified R53.82 Active 571147182 Problem Hydronephrosis with ureteral stricture, not elsewhere classified N13.1 Active 59901607 Problem Primary insomnia F51.01 Active 162168141 Problem 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 026004000 ALLERGIES No Information ENCOUNTERS Encounter Location Date Diagnosis [facility] [id number] [place] [address] 62352- 3836 Apr, Polyneuropathy G62.9 and Hypertension, benign I10 [facility] [id number] [place] [address] 19754- 2481 17 Mar, 2018 Chronic pain syndrome G89.4 and Hypertension, benign I10 [facility] [id number] [place] [address] 51701- 6129 Mar, Polyneuropathy G62.9 and Hypertension, benign I10 [facility] [id number] [place] [address] 39774- 3153 Feb, [facility] [id number] [place] [address] 09908- 6132 Feb, Hypertension, benign I10 [facility] [id number] [place] [address] 74547- 3009 15 Feb, 2018 Hypertension, benign I10 ; Polyneuropathy G62.9 and Primary insomnia F51.01 [facility] [id number] [place] [address] 88665- 7484 Jan, Hypertension, benign I10 and Polyneuropathy G62.9 [facility] [id number] [place] [address] 43275- 6140 Jan, Hypertension, benign I10 and Neuropathy G62.9 [facility] [id number] [place] [address] 73296- 1201 Jan, [facility] [id number] [place] [address] 36008- 7108 Dec, Polyneuropathy G62.9 [facility] [id number] [place] [address] 17183- 0550 Dec, Mood disorder F39 [facility] [id number] [place] [address] 91620- 0681 November, Polyneuropathy G62.9 [facility] [id number] [place] [address] 65081- 6377 November, Medicare annual wellness visit, initial Z00.00 [facility] [id number] [place] [address] 17310- 7923 November, Mood disorder F39 [facility] [id number] [place] [address] 18723- 2770 Oct, Polyneuropathy G62.9 [facility] [id number] [place] [address] 85327- 6754 Oct, [facility] [id number] [place] [address] 93686- 0017 Oct, [facility] [id number] [place] [address] 78125- 6612 Oct, Mood disorder F39 ; Attention to urostomy Z43.6 ; Chronic pain syndrome G89.4 and Polyneuropathy G62.9 [facility] [id number] [place] [address] 66110- 6681 Sep, Polyneuropathy G62.9 [facility] [id number] [place] [address] 93672- 8484 Sep, [facility] [id number] [place] [address] 83326- 6437 Sep, Polyneuropathy G62.9 [facility] [id number] [place] [address] 69666- 2769 Aug, Polyneuropathy G62.9 [facility] [id number] [place] [address] 98409- 1786 Aug, Malignant neoplasm of colon, unspecified part of colon C18.9 and Polyneuropathy G62.9 [facility] [id number] [place] [address] 65983- 9773 Aug, Neuropathy G62.9 and Polyneuropathy G62.9 [facility] [id number] [place] [address] 94445- 3668 Jul, Encounter for drug screening Z02.83 [facility] [id number] [place] [address] 89005- 8278 Jul, Polyneuropathy G62.9 [facility] [id number] [place] [address] 07342- 7093 Jul, [facility] [id number] [place] [address] 57094- 0054 Jul, Neuropathy G62.9 and Anxiety F41.9 [facility] [id number] [place] [address] 97614- 1051 Jul, [facility] [address] [address]- 5827 Jul, [facility] [address] [address]- 8164 Jul, [facility] [address] [address]- 4317 Jul, Polyneuropathy G62.9 [facility] [address] [address]- 9026 Jul, [facility] [id number] [place] [address] 65323- 1766 Jun, [facility] [id number] [place] [address] 10027- 6816 Jun, [facility] [id number] [place] [address] 66227- 6868 Jun, [facility] [id number] [place] [address] 07 Jun, 2017 Encounter for dental examination Z01.20 [facility] [id number] [place] [address] 10942- 3104 Jun, Polyneuropathy G62.9 and Anxiety F41.9 [facility] [address] [address]- 3286 Jun, [facility] [id number] [address] May, Dental examination Z01.20 [facility] [id number] [place] [address] 48673- 6475 May, Polyneuropathy G62.9 [facility] [address] [address]- 7308 Apr, Polyneuropathy G62.9 [facility] [id number] [place] [address] 42366- 5486 Apr, Polyneuropathy G62.9 [facility] [id number] [place] [address] 01879- 7536 Apr, Hypertension, benign I10 ; Polyneuropathy G62.9 and Anxiety F41.9 [facility] [id number] [place] [address] 42916- 5532 Apr, Primary insomnia F51.01 and Polyneuropathy G62.9 [facility] [id number] [place] [address] 57057- 5464 Apr, Primary insomnia F51.01 and Polyneuropathy G62.9 [facility] [id number] [place] [address] 07063- 0740 Mar, Primary insomnia F51.01 [facility] [id number] [place] [address] 55971- 8019 Mar, [facility] [id number] [place] [address] 55133- 4813 Mar, Polyneuropathy G62.9 [facility] [id number] [place] [address] 52191- 9010 Feb, Primary insomnia F51.01 [facility] [id number] [place] [address] 31889- 1265 Feb, [facility] [id number] [place] [address] 01169- 2697 Feb, [facility] [id number] [place] [address] 56877- 5460 Feb, Polyneuropathy G62.9 [facility] [id number] [place] [address] 12573- 2318 Feb, Primary insomnia F51.01 [facility] [id number] [place] [address] 55672- 9631 Jan, [facility] [id number] [place] [address] 94032- 4377 Jan, [facility] [address] [address]- 0311 Dec, [facility] [address] [address]- 2803 Dec, Primary insomnia F51.01 [facility] [address] [address]- 3738 Dec, Primary insomnia F51.01 [facility] [address] [address]- 5722 Dec, [facility] [id number] [place] [address] 91792- 2958 Dec, [facility] [address] [address]- 9842 Dec, [facility] [address] [address]- 4918 Dec, [facility] [address] [address]- 0129 November, Primary insomnia F51.01 and Polyneuropathy G62.9 [facility] [address] [address]- 6940 November, [facility] [address] [address]- 3697 November, Abdominal pain, left lower quadrant R10.32 [facility] [address] [address]- 3697 November, [facility] [address] [address]- 6599 Oct, [facility] [address] [address]- 0936 Oct, Abdominal pain, left lower quadrant R10.32 ; 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 and Neuropathy G62.9 [facility] [id number] [address]- 4095 Oct, [facility] [id number] [place] [address] 65184- 4990 Sep, [facility] [id number] [address] Sep, [facility] [id number] [place] [address] 89211- 8348 Sep, [facility] [place] [facility] [id number] [address]- 9655 Aug, [facility] [id number] [place] [address] 96554- 4965 Aug, [facility] [id number] [place] [address] 67910- 3621 Aug, Abdominal pain, left lower quadrant R10.32 ; Neuropathy G62.9 and Anxiety F41.9 [facility] [address] [place] [address] Jul, [facility] [id number] [place] [address] 40531- 2601 Jul, [facility] [address] [address]4319 Jul, [facility] [address] [address]- 1580 Jul, [facility] [place] [facility] [address] [address]- 3645 Jul, [facility] [place] [facility] [address] [address]- 4359 Jun, [facility] [place] [facility] [address] [address]- 6661 May, [facility] [place] [facility] [address] [address]- 8695 May, [facility] [place] [facility] [id number] [place] [address] 13955- 3075 Apr, [facility] [id number] [place] [address] 46662- 0420 Apr, Muscle spasms of both lower extremities M62.838 and Cellulitis, unspecified cellulitis site L03.90 [facility] [id number] [place] [address] 14755- 5490 Apr, [facility] [id number] [place] [address] 17223- 1142 23 Mar, 2016 Generalized abdominal pain R10.84 [facility] [id number] [place] [address] 30828- 5004 20 Mar, 2016 [facility] [id number] [place] [address] 35271- 5604 14 Mar, 2016 [facility] [id number] [place] [address] 54818- 9627 14 Mar, 2016 [facility] [id number] [place] [address] 03007- 3183 13 Mar, 2016 [facility] [id number] [place] [address] 02690- 8151 12 Mar, 2016 [facility] [id number] [place] [address] 22583- 1025 09 Mar, 2016 [facility] [id number] [place] [address] 45825- 2549 06 Mar, 2016 [facility] [id number] [place] [address] 36119- 2541 17 Feb, 2016 Other specified diseases of anus and rectum K62.89 [facility] [id number] [place] [address] 43369- 1982 15 Feb, 2016 [facility] [id number] [place] [address] 42442- 1401 09 Feb, 2016 Dizziness R42 [facility] [id number] [place] [address]- 0342 Feb, [facility] [address] [facility] [id number] [place] [address]- 2714 Jan, Polyneuropathy G62.9 [facility] [id number] [place] [address]- 4901 Jan, Other specified diseases of anus and rectum K62.89 [facility] [address] [facility] [id number] [place] [address]- 6871 Jan, [facility] [address] [facility] [id number] [place] [address]6381 Jan, [facility] [id number] [place] [address]- 5298 Jan, [facility] [id number] [place] [address]- 4677 Jan, Dizziness R42 [facility] [address] [place] [address]- 8682 Dec, [facility] [id number] [place] [address]- 7993 Dec, [facility] [address] [place] [address]- 4448 Dec, [facility] [address] [place] [address]- 1561 Dec, Dizziness R42 [facility] [address] [place] [address]- 6914 November, [facility] [address] [place] [address]- 5018 Oct, [facility] [id number] [place] [address]- 2383 Oct, [facility] [address] [place] [address]- 8621 Oct, [facility] [id number] [place] [address] 67535- 2864 Oct, [facility] [id number] [place] [address] 64131- 2372 Sep, [facility] [id number] [place] [address] 29017- 2838 Sep, Primary insomnia F51.01 [facility] [id number] [place] [address] 58280- 1395 Sep, Primary insomnia F51.01 [facility] [id number] [place] [address] 87030- 1281 Sep, [facility] [id number] [place] [address] 02656- 5805 Aug, [facility] [id number] [place] [address] 48044- 9216 Aug, [facility] [id number] [place] [address] 56111- 7784 Aug, Primary insomnia F51.01 ; Mood disorder F39 ; Nausea and vomiting, unspecified intactability, vomiting of unspecified type R11.2 and Diarrhea R19.7 [facility] [id number] [place] [address] 52101- 4649 Aug, [facility] [id number] [place] [address] 26537- 7967 Aug, Folliculitis L73.9 [facility] [id number] [place] [address] 64851- 4500 Aug, [facility] [id number] [place] [address] 28741- 7398 Aug, [facility] [id number] [place] [address] 56485- 9869 Jul, Folliculitis L73.9 [facility] [id number] [place] [address] 30659- 9782 Jul, [facility] [id number] [place] [address] 62733- 2825 Jun, Folliculitis L73.9 [facility] [id number] [place] [address] 73507- 5787 Jun, [facility] [id number] [place] [address] 32576- 4608 May, Polyneuropathy G62.9 [facility] [id number] [place] [address] 72831- 7942 May, Other specified diseases of anus and rectum K62.89 [facility] [id number] [place] [address] 05079- 7052 May, [facility] [facility] [id number] [place] [address] 65381- 6239 May, Primary insomnia F51.01 [facility] [id number] [place] [address] 84122- 6699 May, [facility] [id number] [place] [address] 69398- 6571 May, [facility] [id number] [place] [address] 75543- 0576 Apr, Other specified diseases of anus and rectum K62.89 ; Chronic fatigue R53.82 ; Urinary tract infection, site not specified N39.0 and Enterococcus as the cause of diseases classified elsewhere B95.2 [facility] [id number] [place] [address] 66720- 9954 Apr, [facility] [id number] [place] [address] 24514- 1057 Apr, [facility] [id number] [place] [address] 23471- 2229 Apr, 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 [id number] [address]- 9212 23 Mar, 2015 [facility] [id number] [address] 2546 17 Mar, [address] [facility] [address] [facility] [id number] [place] [address] 56205 2549 14 Mar, 2015 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 [facility] [id number] [place] [address] 65631- 6904 12 Mar, [address] [facility] [id number] [place] [address] 81406- 9703 11 Mar, 2015 [facility] [id number] [place] [address] 28572- 9610 11 Mar, 2015 [facility] [id number] [place] [address] 94379- 7461 10 Mar, 2015 [facility] [id number] [place] [address] 08340- 4607 Feb, [facility] [address], [place] [address]- 8425 Feb, [facility] [id number] [place] [address] 13859- 7923 Feb, [facility] [address] [address] 2541 Jan, [facility] [id number] [place] [address] 64691- 1206 Jan, Nausea 787.02 and Neuropathy 355.9 [facility] [id number] [address] 2547 Jan, [facility] [id number] [place] [address] 07872- 0709 Jan, [facility] [address] [id number] [place] [address]33 Jan, [facility] [address] [id number] [address] Jan, Dental examination V72.2 [facility] [address] [id number] [place] [address]- 0437 Jan, [facility] [address] [id number][place] [address] Dec, [facility] [address] [id number] [place] [address] Dec, [facility] [address] [facility] [id number][place] [address] Dec, Neuropathy 355.9 [facility] [address] [id number] [place] [address] [address] November, [facility] [address] [facility] [id number][place] [address] [address] November, [facility] [address] [facility] [id number] [place] [address] [address], [facility] [address] [facility] [id number][place] [address] Oct, [facility] [address] [facility] [id number] [place] [address] Oct, [facility] [place] [facility] [address] [id number], [place] [address] Sep, [facility] [place] [facility] [address] [id number] [place] [address] Sep, [facility] [place] [facility] [address] [facility] [id number] [place] [address] Sep, [facility] [place] [facility] [address] [facility] [id number][place] [address] Sep, [facility] [place] [facility] [address] [id number] [place] [address] Sep, [facility] [place] [facility] [address] [id number] [place] [address] Sep, [facility] [place] [facility] [address] [id number] [place] [address] Sep, [facility] [place] [facility] [address] [id number] [place] [address] Sep, [facility] [place] [facility] [address] [id number] [place] [address] Aug, 2014 [facility] [place] [facility] [address] [id number] [place] [address] Aug, 2014 [facility] [place] [facility] [address] [facility] [id number] [place] [address] Aug, 2014 [facility] [place] [facility] [address] [id number] [place] [address] Aug, 2014 [facility] [place] [facility] [address] [id number] [place] [address] Aug, [facility] [place] [facility] [address] [id number] [place] [address] Aug, [facility] [place] [facility] [address] [id number] [place] [address] Aug, [facility] [place] [facility] [address] [id number] [place] [address] Aug, [facility] [place] [facility] [address] [id number] [place] [address] Jul, [facility] [place] [facility] [address] [id number] [place] [address] [address] Jul, [facility] [place] [facility] [address] [facility] [id number] [place] [address] Jun, [facility] [place] [facility] [address] [id number] [place] [address] Jun, [facility] [place] [facility] [address] [id number] [place] [address] Jun, [facility] [place] [facility] [address] [id number] [place] [address] Jun, [facility] [place] [facility] [address] [id number] [place] [address] Jun, [facility] [place] [facility] [address] [id number] [place] [address] Jun, [facility] [place] [facility] [address] [id number] [place] [address] Jun, [facility] [place] [facility] [address] [id number] [place] [address] Jun, [facility] [place] [facility] [address] [id number] [place] [address] Jun, [facility] [place] [facility] [address] [id number] [place] [address] Jun, [facility] [place] [facility] [address] [id number] [place] [address] Jun, [facility] [place] [facility] [address] [facility] [id number] [place] [address] May, [facility] [place] [facility] [address] [id number] [place] [address] May, [facility] [place] [facility] [address] [id number] [place] [address] May, [facility] [place] [facility] [address] [id number] [place] [address] May, [facility] [place] [facility] [address] [id number] [place] [address] May, [facility] [place] [facility] [address] [id number] [place] [address] May, [facility] [place] [facility] [address] [id number] [place] [address] May, [facility] [place] [facility] [address] [id number] [place] [address]- 74[address] May, [facility] [place] [facility] [address] [id number] [place] [address] May, [facility] [place] [facility] [address] [id number] [place] [address] Apr, [facility] [place] [facility] [address] [id number] [place] [address] Apr, [facility] [place] [facility] [address] [id number] [place] [address]- [address]85 Apr, [facility] [place] [facility] [address] [id number] [place] [address] Apr, [facility] [place] [facility] [address] [id number] [place] [address]- [address] Apr, [facility] [place] [facility] [address] [id number] [place] [address] Mar, [facility] [place] [facility] [address] [id number] [place] [address]- 69[address] Mar, [facility] [place] [facility] [address] [id number] [place] [address]- [address] Feb, [facility] [place] [facility] [address] [id number] [place] [address] Feb, [facility] [place] [facility] [address] [id number] [place] [address] Feb, [facility] [place] [facility] [address] [id number] [place] [address] Feb, [facility] [place] [facility] [address] [id number] [place] [address]- [address] Feb, [facility] [place] [facility] [address] [id number] [place] [address]- [address] Feb, [facility] [place] [facility] [address] [id number] [place] [address] Jan, [facility] [place] [facility] [address] [id number] [place] [address] Jan, [facility] [place] [facility] [address] [id number] [place] [address] Jan, [facility] [place] [facility] [address] [id number] [place] [address] 69[address] Jan, [facility] [place] [facility] [address] [id number] [place] [address] Jan, [facility] [place] [facility] [address] [id number] [place] [address] Jan, [facility] [place] [facility] [address] [id number] [place] [address] Jan, [facility] [place] [facility] [address] [id number] [place] [address] Jan, [facility] [place] [facility] [address] [id number] [place] [address] Jan, [facility] [place] [facility] [address] [id number] [place] [address] Jan, [facility] [place] [facility] [address] [id number] [place] [address] Jan, [facility] [place] [facility] [address] [id number] [place] [address] Dec, [facility] [place] [facility] [address] [id number] [place] [address] Dec, [facility] [place] [facility] [address] [id number] [place] [address]- 9852 Dec, [facility] [place] [facility] [address] [id number] [place] [address]- [address] Dec, [facility] [place] [facility] [address] [id number] [place] [address] Dec, [facility] [address] [id number] [place] [address] 116[address] Dec, [facility] [address] [id number] [place] [address] November, [facility] [address] [id number] [place] [address]207 November, [facility] [address] [id number] [place] [address] 44[address] November, [facility] [address] [id number] [place] [address]70 November, [facility] [address] [id number] [place] [address] 4778 November, [facility] [address] [id number] [place] [address]- [address], [facility] [address] [id number] [place] [address]- 4585 Oct, [facility] [address] [id number] [place] [address]- [address] Oct, [facility] [address] [id number] [place] [address]- 6626 Oct, [facility] [place] [facility] [address] [id number] [place] [address]- 7863 Oct, [facility] [place] [facility] [address] [id number] [place] [address]- 8640 Sep, [facility] [place] [facility] [address] [id number] [place] [address] 17 Sep, 2013 [facility] [place] [facility] [address] [id number] [place] [address] 8514 Sep, [facility] [place] [facility] [address] [id number] [place] [address]- [address] Sep, [facility] [address] [id number] [place] [address] 4281 Sep, [facility] [address] [id number] [place] [address]- 0683 Aug, [facility] [address] [id number] [place] [address]- 7561 Aug, [facility] [address] [id number] [place] [address]- 4626 Aug, [facility] [address] [id number] [place] [address]- 6347 Aug, [facility] [address] [id number] [place] [address]- [address] Aug, [facility] [address] [place] [id number] May, [facility] [address] [id number] [place] [address]- [address] May, [facility] [address] [id number] [place] [address]- [address] May, [facility] [address] [id number] [place] [address]- [address] May, [facility] [address] [id number] [place] [address]- 8476 May, [facility] [address] [id number] [address]- 9636 Apr, [facility] [address] [id number] [place] [address]- 4090 Apr, [facility] [address] [id number] [place] [address]- 7032 Apr, [facility] [address] [id number] [place] [address]- 9474 Apr, [facility] [address] [id number] [address]- 280[address] Apr, [facility] [place] [facility] [address] [id number] [place] [address]- 8364 Apr, [facility] [place] [facility] [address] [id number] [place] [address] Apr, [facility] [place] [facility] [address] [id number] [place] [address]- 9536 Mar, [facility] [place] [facility] [address] [id number] [place] [address]- 3970 Mar, [facility] [place] [facility] [address] [id number] [place] [address]- 0691 24 Mar, 2013 [facility] [place] [facility] [address] [id number] [place] [address]- 6505 Mar, [facility] [place] [facility] [address] [id number] [place] [address]- 1612 Mar, [facility] [place] [facility] [address] [id number] [place] [address]- 2034 Mar, [facility] [place] [facility] [address] [id number] [place] [address]- 2848 Feb, [facility] [place] [facility] [address] [id number] [place] [address]- 9811 Feb, [facility] [place] [facility] [address] [id number] [place] [address]- 3323 Feb, [facility] [place] [facility] [address] [id number] [place] [address]- 7288 Feb, [facility] [place] [facility] [address] [id number] [place] [address]- 9516 Feb, [facility] [place] [facility] [address] [id number] [place] [address]- 9656 Feb, [facility] [place] [facility] [address] [id number] [place] [address]- 9525 Jan, [facility] [place] [facility] [address] [id number] [place] [address]- [address]285 24 Dec, 2012 [facility] [address] [id number] [place] [address]- 2515 Dec, [facility] [address] [id number] [place] [address]- 1586 Dec, [facility] [address] [id number] [place] [address]- 0447 Dec, [facility] [address] [id number] [place] [address]- 7006 Dec, [facility] [address] [id number] [place] [address]- 3139 Dec, [facility] [address] [id number] [place] [address]- 9105 Dec, [facility] [address] [id number] [place] [address]- [address] Dec, [facility] [address] [id number] [place] [address]- 9916 Dec, [facility] [address] [id number] [place] [address]- [address], [facility] [address] [id number] [place] [address]- 1998 November, [facility] [address] [id number] [place] [address]- 8437 Oct, [facility] [address] [id number] [place] [address]- 8748 Sep, [facility] [place] [facility] [address] [id number] [place] [address] Sep, [facility] [place] [facility] [address] [id number] [place] [address]- 1426 15 Sep, 2012 [facility] [address] [id number] [place] [address]- 4481 Sep, [facility] [address] [facility] [id number], [place] [address] 1606 Aug, [facility] [address] [id number] [address]- [address]36 Aug, [facility] [address] [id number], [place] [address]- [address] Jul, [facility] [id number] [address]- [address]66 Jul, [facility] [address] [id number] [address]- 2816 Jul, [facility] [id number], [place] [address]- 3936 Sep, [facility] [id number], [place] [address]- [address] Sep, [facility] [address] [id number], [place] [address]- [address]256 Sep, IMMUNIZATIONS No Known Immunizations SOCIAL HISTORY Never Assessed REASON FOR VISIT Controlled Med Refill 04/25/18 PLAN OF CARE VITAL SIGNS MEDICATIONS Medication Instructions Dosage Frequency Start Date End Date Duration Status Oxycodone HCl 30 MG Orally 2 times a day 1 tablet as needed 12h Apr, 28 days Active Percocet 10-325 MG Orally every 4 hrs 1 tablet 4h Apr, 28 days Active Lyrica 150 MG Orally 3 times a day 1 capsule 8h Feb, 28 days Active RESULTS No Results PROCEDURES No Known procedures INSTRUCTIONS MEDICATIONS ADMINISTERED No Known Medications MEDICAL [...] ileostomy by dr. Cook d/t rectal cancer 12/06. Hospitalization History Intractable n/v, chronic, abd pain, acute renal 03/27 Hospitalization History [facility] for dizziness and nausea 12/07/15 Hospitalization History UTI, AMS-VC 09/21/16 Hospitalization History Large bowel obstruction, Dehydration-VC 01/01/17 Hospitalization History [facility]- UTI/Sepsis 01/18/2018
--- OUTSIDE RECORDS SUMMARY | 2018-06-09 17:13 | XMS REPORT ---
Author Author LINDA BENTLEY Organization [facility] Address [address] [place] [address] Care Team Providers Care Associate Professor Of Geography Name Role Phone LINDA BENTLEY Unavailable PROBLEMS Type Condition ICD9-CM Code HWK39-EY Code Onset Dates Condition Status SNOMED Code Problem Abdominal pain, left lower quadrant R10.32 Active 349799892 Problem Mood disorder F39 Active 23004548 Problem Hypertension, benign I10 Active 26967492 Problem Chronic pain syndrome G89.4 Active 193223011 Problem Attention to urostomy Z43.6 Active 707481973 Problem Anxiety F41.9 Active 10145460 Problem Neuropathy G62.9 Active 620986878 Problem Malignant neoplasm of colon, unspecified part of colon C18.9 Active 768315297 Problem Polyneuropathy G62.9 Active 40786649 Problem Incontinence of feces, unspecified fecal incontinence type R15.9 Active 53636128 Problem Chronic fatigue, unspecified R53.82 Active 593611432 Problem Hydronephrosis with ureteral stricture, not elsewhere classified N13.1 Active 25764165 Problem Primary insomnia F51.01 Active 393508804 Problem 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 [id number] ALLERGIES No Information ENCOUNTERS Encounter Location Date Diagnosis [facility] [id number] [place] [address] 40470- 3592 17 Mar, 2018 Chronic pain syndrome G89.4 and Hypertension, benign I10 [facility] [address], [place] [address] 7813 Mar, Polyneuropathy G62.9 and Hypertension, benign I10 [facility] [id number] [place] [address] 86454- 3049 Feb, [facility] [id number] [place] [address] 38580- 1218 Feb, Hypertension, benign I10 [facility] [address], [place] [address] 7304 Feb, Hypertension, benign I10 ; Polyneuropathy G62.9 and Primary insomnia F51.01 [facility] [id number] [address] 2788 17 Jan, 2018 Hypertension, benign I10 and Polyneuropathy G62.9 [facility] [id number] [place] [address] 53278- 0354 Jan, Hypertension, benign I10 and Neuropathy G62.9 [facility] [id number] [place] [address] 41038- 3277 Jan, [facility] [id number] [place] [address] 76461- 7046 Dec, Polyneuropathy G62.9 [facility] [id number] [place] [address] 28349- 2923 Dec, Mood disorder F39 [facility] [id number] [place] [address] 61355- 3327 November, Polyneuropathy G62.9 [facility] [id number] [place] [address] 05797- 9004 November, Medicare annual wellness visit, initial Z00.00 [facility] [address], [place] [address] 2180 November, Mood disorder F39 [facility] [address], [place] [address]- 6876 Oct, Polyneuropathy G62.9 [facility] [id number] [address]- 4411 Oct, [facility] [address], [place] [address]- 0392 Oct, [facility] [id number] [place] [address] 35365- 7122 Oct, Mood disorder F39 ; Attention to urostomy Z43.6 ; Chronic pain syndrome G89.4 and Polyneuropathy G62.9 [facility] [address] 49168- 3698 Sep, Polyneuropathy G62.9 [facility] [id number] [place] [address] 69265- 1335 Sep, [facility] [address] 84937- 2152 Sep, Polyneuropathy G62.9 [facility] [id number] [place] [address] 42986- 5458 Aug, Polyneuropathy G62.9 [facility] [address] 57482- 8203 Aug, Malignant neoplasm of colon, unspecified part of colon C18.9 and Polyneuropathy G62.9 [facility] [id number] [place] [address] 53400- 9035 Aug, Neuropathy G62.9 and Polyneuropathy G62.9 [facility] [id number] [place] [address] 27129- 4596 Jul, Encounter for drug screening Z02.83 [facility] [id number] [place] [address] 28145- 4360 Jul, Polyneuropathy G62.9 [facility] [id number] [place] [address] 57868- 7088 Jul, [facility] [id number] [place] [address] 55802- 9781 Jul, Neuropathy G62.9 and Anxiety F41.9 [facility] [id number] [place] [address] 73353- 4782 Jul, [facility] [id number] [place] [address] 91804- 7310 Jul, [facility] [address], [place] [address]- 6089 Jul, [facility] [id number] [place] [address] 36509- 7398 Jul, Polyneuropathy G62.9 [facility] [id number] [place] [address] 11102- 1997 Jul, [facility] [id number] [place] [address] 05631- 9024 Jun, [facility] [id number] [place] [address] 76437- 1094 Jun, [facility] [id number] [place] [address] 87402- 2660 Jun, [facility] [id number] [place] [address] Jun, Encounter for dental examination Z01.20 [facility] [id number] [place] [address] 45144- 7292 Jun, Polyneuropathy G62.9 and Anxiety F41.9 [facility] [id number] [place] [address] 46707- 5064 Jun, [facility] [id number] [place] [address] May, Dental examination Z01.20 [facility] [address], [place] [address]- 0963 May, Polyneuropathy G62.9 [facility] [id number] [place] [address] 87052- 9781 Apr, Polyneuropathy G62.9 [facility] [address], [place] [address]- 7271 Apr, Polyneuropathy G62.9 [facility] [id number] [place] [address] 65861- 5554 Apr, Hypertension, benign I10 ; Polyneuropathy G62.9 and Anxiety F41.9 [facility] [id number] [place] [address] 36181- 8708 Apr, Primary insomnia F51.01 and Polyneuropathy G62.9 [facility] [id number] [place] [address] 95313- 8357 Apr, Primary insomnia F51.01 and Polyneuropathy G62.9 [facility] [id number] [place] [address] 73028- 9825 Mar, Primary insomnia F51.01 [facility] [id number] [place] [address], [place] [address]- 2714 Mar, [facility] [id number] [place] [address] 42682- 8973 Mar, Polyneuropathy G62.9 [facility] [id number] [place] [address] 11175- 5575 Feb, Primary insomnia F51.01 [facility] [id number] [place] [address] 32754- 5836 Feb, [facility] [id number] [place] [address] 21320- 4336 Feb, [facility] [id number] [place] [address] 29059- 3120 Feb, Polyneuropathy G62.9 [facility] [id number] [place] [address] 72146- 5908 Feb, Primary insomnia F51.01 [facility] [id number] [place] [address], [place] [address]- 0386 Jan, [facility] [id number] [place] [address] 63753- 9860 Jan, [facility] [id number] [place] [address] 72675- 7457 Dec, [facility] [address], [place] [address]- 1053 Dec, Primary insomnia F51.01 [facility] [address], [place] [address]- 4352 Dec, Primary insomnia F51.01 [facility] [address], [place] [address]- 6792 Dec, [facility] [id number] [place] [address] 44772- 6332 Dec, [facility] [id number] [place] [address] 51195- 1318 Dec, [facility] [id number] [place] [address] 16328- 7129 Dec, [facility] [id number] [place] [address] 53145- 9607 November, Primary insomnia F51.01 and Polyneuropathy G62.9 [facility] [address], [place] [address]- 3190 November, [facility] [id number] [place] [address] 65886- 3646 November, Abdominal pain, left lower quadrant R10.32 [facility] [address], [place] [address]- 2852 November, [facility] [address], [place] [address]- 8154 Oct, [facility] [address], [place] [address]- 9751 Oct, Abdominal pain, left lower quadrant R10.32 ; 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 and Neuropathy G62.9 [facility] [address], [place] [address]- 3223 Oct, [facility] [id number] [place] [address] 66774- 7724 Sep, [facility] [id number] [place] [address] [id number] Sep, [facility] [id number] [place] [address] 71539- 8500 Sep, [facility] [id number] [place] [address] 69808- 2244 Aug, [facility] [place] [facility] [address] 78547- 9743 Aug, [facility] [id number] [place] [address] 799233- 1911 Aug, Abdominal pain, left lower quadrant R10.32 ; Neuropathy G62.9 and Anxiety F41.9 [facility] [address] [place] [address] Jul, [facility] [place] [facility] [id number] [place] [address] 96146- 6419 Jul, [facility] [id number] [place] [address] 76039 -4810 Jul, [facility] [place] [facility] [id number] [place] [address] 78479- 4483 Jul, [facility] [id number] [place] [address] 99984- 6918 Jul, [facility] [place] [facility] [id number] [place] [address] 14825- 9055 Jun, [facility] [place] [facility] [id number] [place] [address] 62907- 0683 May, [facility] [place] [facility] [id number] [place] [address] 75284- 1473 May, [facility] [place] [facility] [id number] [place] [address] 38352- 9852 Apr, [facility] [place] [facility] [id number] [place] [address] 22298- 5414 Apr, Muscle spasms of both lower extremities M62.838 and Cellulitis, unspecified cellulitis site L03.90 [facility] [id number] [place] [address] 35879- 3551 Apr, [facility] [id number] [place] [address] 09033- 5535 23 Mar, 2016 Generalized abdominal pain R10.84 [facility] [id number] [place] [address] 87284- 2573 20 Mar, 2016 [facility] [id number] [place] [address] 03943- 0224 14 Mar, 2016 [facility] [id number] [place] [address] 70910- 5856 14 Mar, 2016 [facility] [id number] [place] [address] 90435- 7479 13 Mar, 2016 [facility] [id number] [place] [address] 61876- 0496 12 Mar, 2016 [facility] [id number] [place] [address] 25963- 5118 09 Mar, 2016 [facility] [id number] [place] [address] 35520- 1138 06 Mar, 2016 [facility] [id number] [place] [address] 22788- 4884 Feb, Other specified diseases of anus and rectum K62.89 [facility] [address], [place] [address]- 6008 Feb, [facility] [id number] [place] [address] 23670- 5307 Feb, Dizziness R42 [facility] [id number], [place] [address]- 2546 Feb, [facility] [id number] [place] [address] 37885- 0989 Jan, Polyneuropathy G62.9 [facility] [address] [facility] [id number] [place] [address]- 4968 Jan, Other specified diseases of anus and rectum K62.89 [facility] [address] [facility] [id number] [place] [address]- 0058 Jan, [facility] [address] [facility] [id number] [place] [address]0837 Jan, [facility] [address] [facility] [id number] [place] [address]- 9530 Jan, [facility] [address] [facility] [id number] [place] [address], [place] [address]- 7917 Jan, Dizziness R42 [facility] [id number] [place] [address], [place] [address]- 7468 Dec, [facility] [address] [facility] [id number] [place] [address], [place] [address]- 2956 Dec, [facility] [address] [facility] [id number] [place] [address]- 0099 Dec, [facility] [id number] [place] [address], [place] [address]- 8232 Dec, Dizziness R42 [facility] [address] [address]- 1208 November, [facility] [address] [facility] [id number] [place] [address]- 1950 Oct, [facility] [address] [facility] [id number] [place] [address]- 0310 Oct, [facility] [address] [facility] [id number] [place] [address]- 3869 Oct, [facility] [address] [facility] [id number] [place] [address]- 3386 Oct, [facility] [id number] [place] [address] 55614- 8836 Sep, [facility] [id number] [place] [address] 37690- 0877 Sep, Primary insomnia F51.01 [facility] [id number] [place] [address] 13830- 2368 Sep, Primary insomnia F51.01 [facility] [id number] [place] [address] 79906- 5850 Sep, [facility] [id number] [place] [address] 54167- 8271 Aug, [facility] [id number] [place] [address] 60307- 5915 Aug, [facility] [id number] [place] [address] 31354- 6304 Aug, Primary insomnia F51.01 ; Mood disorder F39 ; Nausea and vomiting, unspecified intactability, vomiting of unspecified type R11.2 and Diarrhea R19.7 [facility] [id number] [place] [address] 74632- 5504 Aug, [facility] [id number] [place] [address] 89627- 6418 Aug, Folliculitis L73.9 [facility] [id number] [place] [address] 63865- 3680 Aug, [facility] [id number] [place] [address] 89319- 6712 Aug, [facility] [id number] [place] [address] 39932- 7168 Jul, Folliculitis L73.9 [facility] [id number] [place] [address] 89861- 7190 Jul, [facility] [id number] [place] [address] 81321- 7100 Jun, Folliculitis L73.9 [facility] [address], [place] [address]- 5453 Jun, [facility] [id number] [place] [address] 27603- 8338 May, Polyneuropathy G62.9 [facility] [id number] [place] [address] 31219- 1030 May, Other specified diseases of anus and rectum K62.89 [facility] [id number] [place] [address] 04655- 3379 May, [facility] [address] 99090- 7617 May, Primary insomnia F51.01 [facility] [id number] [place] [address] 01671- 2903 May, [facility] [id number] [place] [address] 34078- 7051 May, [facility] [id number] [place] [address] 61286- 6688 Apr, Other specified diseases of anus and rectum K62.89 ; Chronic fatigue R53.82 ; Urinary tract infection, site not specified N39.0 and Enterococcus as the cause of diseases classified elsewhere B95.2 [facility] [id number] [place] [address] 10326- 2214 16 Apr, 2015 [facility] [id number] [place] [address] 73542- 8939 Apr, [facility] [id number] [place] [address] 17625- 6419 Apr, 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 [facility] [id number] [place] [address] 93007- 9591 05 Apr, 2015 [facility] [id number] [place] [address] 07966- 1103 Mar, [id number] [facility] [id number], [place] [address]- 3781 23 Mar, 2014 [facility] [id number] [place] [address] 05130- 1476 17 Mar, 2015 [facility] [id number] [place] [address] 01211 2547 14 Mar, 2015 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 [facility] [id number] [place] [address] 96964- 9893 12 Mar, 2014 [facility] [id number] [place] [address] 24371- 2295 11 Mar, 2015 [facility] [id number] [place] [address] 67239- 7405 11 Mar, 2015 [facility] [id number] [place] [address] 37304- 8222 10 Mar, 2015 [facility] [id number] [place] [address] 39379- 1748 28 Feb, 2015 [facility] [id number] [place] [address] 83871- 5423 Feb, [facility] [id number] [place] [address] 63997- 2963 Feb, [facility] [id number] [place] [address] 00363- 5471 30 Jan, 2015 [facility] [id number] [place] [address] 87400- 2543 Jan, Nausea 787.02 and Neuropathy 355.9 [facility] [id number] [address]- 0413 Jan, [facility] [id number] [address]- 2547 Jan, [facility] [address], [place] [address]- 3959 16 Jan, 2015 [facility] [place] [facility] [address] [id number] [id number] 10 Jan, 2015 Dental examination V72.2 [facility] [place] [facility] [address] [id number] [place] [address]- 8472 Jan, [facility] [place] [facility] [address] [id number] [place] [address]- 8395 Dec, [facility] [place] [facility] [address] [id number] [place] 4637 Dec, [facility] [address] [id number] [place] 2808 Dec, Neuropathy 355.9 [facility] [address] [id number] [place] [address]- 8184 November, [facility] [address] [id number] [place] [address]- 5546 November, [facility] [address] [id number], [place] [address]- 3901 November, [facility] [address] [id number] [place] [address]- 7546 Oct, [facility] [place] [facility] [address] [facility] [id number], [place] [address]- 3176 Oct, [facility] [place] [facility] [address] [id number], [place] [address]- 6525 Sep, [facility] [place] [facility] [address] [id number], [place] [address]- 4898 Sep, [facility] [place] [facility] [address] [id number] [place] [address]- 0283 Sep, [facility] [place] [facility] [address] [id number], [place] [address]- 7566 Sep, [facility] [place] [facility] [address] [id number], [place] [address]- 0267 Sep, [facility] [place] [facility] [address] [id number] [place] [address]- 5899 Sep, [facility] [place] [facility] [address] [id number] [place] [address] Sep, [facility] [place] [facility] [address] [id number] [place] [address] Sep, [facility] [place] [facility] [address] [id number] [place] [address] Aug, 2014 [facility] [place] [facility] [address] [id number] [place] [address] Aug, 2014 [facility] [place] [facility] [address] [id number] [place] [address] Aug, 2014 [facility] [place] [facility] [address] [id number] [place] [address] Aug, 2014 [facility] [place] [facility] [address] [id number] [place] [address] Aug, 2014 [facility] [place] [facility] [address] [id number] [place] [address] Aug, 2014 [facility] [place] [facility] [address] [id number] [place] [address] Aug, 2014 [facility] [place] [facility] [address] [facility] [place] [id number] [place] [address] Aug, [facility] [place] [facility] [address] [facility] [place] [id number] [place] [address] Jul, [facility] [place] [facility] [address] [id number] [place] [address] Jul, [facility] [place] [facility] [address] [id number] [place] [address] 1992 Jun, [facility] [place] [facility] [address] [id number] [place] [address] Jun, [facility] [place] [facility] [address] [facility] [place] [id number] [place] [address] Jun, [facility] [place] [facility] [address] [id number] [place] [address] Jun, [facility] [place] [facility] [address] [id number] [place] [address] Jun, [facility] [place] [facility] [address] [id number] [place] [address] Jun, [facility] [place] [facility] [address] [id number] [place] [address] Jun, [facility] [place] [facility] [address] [id number] [place] [address] Jun, [facility] [place] [facility] [address] [id number] [place] [address] Jun, [facility] [place] [facility] [address] [id number] [place] [address] Jun, [facility] [place] [facility] [address] [id number] [place] [address] Jun, [facility] [place] [facility] [address] [id number] [place] [address] May, [facility] [place] [facility] [address] [id number] [place] [address] May, [facility] [place] [facility] [address] [id number] [place] [address] May, [facility] [place] [facility] [address] [id number] [place] [address] May, [facility] [place] [facility] [address] [id number] [place] [address] May, [facility] [place] [facility] [address] [id number] [place] [address] May, [facility] [place] [facility] [address] [id number] [place] [address] May, [facility] [place] [facility] [address] [id number] [place] [address] May, [facility] [place] [facility] [address] [id number] [place] [address] May, [facility] [place] [facility] [address] [id number] [place] [address] Apr, [facility] [place] [facility] [address] [id number] [place] [address] Apr, [facility] [place] [facility] [address] [id number] [place] [address] Apr, [facility] [place] [facility] [address] [id number] [place] [address] Apr, [facility] [place] [facility] [address] [id number] [place] [address] Apr, [facility] [place] [facility] [address] [id number] [place] [address] Mar, [facility] [place] [facility] [address] [id number] [place] [address] 28[address] Mar, [facility] [place] [facility] [address] [id number] [place] [address] Feb, [facility] [place] [facility] [address] [id number] [place] [address] Feb, [facility] [place] [facility] [address] [id number] [place] [address] Feb, [facility] [place] [facility] [address] [id number] [place] [address] Feb, [facility] [place] [facility] [address] [id number] [place] [address] Feb, [facility] [place] [facility] [address] [id number] [place] [address] 285[address] Feb, [facility] [place] [facility] [address] [id number] [place] [address] 1254 Jan, [facility] [place] [facility] [address] [id number] [facility] [place] [address] Jan, [facility] [place] [facility] [address] [id number] [facility] [place] [address] Jan, [facility] [place] [facility] [address] [id number] [facility] [place] [address] Jan, [facility] [place] [facility] [address] [id number] [place] [address] Jan, [facility] [place] [facility] [address] [id number] [place] [address] 4316 Jan, [facility] [place] [facility] [address] [id number] [place] [address] 1033 Jan, [facility] [place] [facility] [address] [id number] [place] [address] Jan, [facility] [place] [facility] [address] [id number] [place] [address]- [address] Jan, [facility] [place] [facility] [address] [id number] [place] [address] 3517 Jan, [facility] [place] [facility] [address] [id number] [place] [address]- 4398 Jan, [facility] [place] [facility] [address] [id number] [place] [address] 2019 Dec, [facility] [place] [facility] [address] [id number] [place] [address] 2459 Dec, [facility] [place] [facility] [address] [id number] [place] [address] Dec, [facility] [place] [facility] [address] [id number] [place] [address]- [address] Dec, [facility] [place] [facility] [address] [id number] [place] [address]- 0692 Dec, [facility] [place] [facility] [address] [id number] [place] [address]- 9641 Dec, [facility] [place] [facility] [address] [id number] [place] [address] 89[address] November, [facility] [place] [facility] [address] [id number] [place] [address] 7288 November, [facility] [place] [facility] [address] [id number] [place] [address]11 November, [facility] [place] [facility] [address] [id number] [place] [address] 7[address] November, [facility] [place] [facility] [address] [id number] [place] [address] 0602 November, [facility] [place] [facility] [address] [id number] [place] [address] 8463 November, [facility] [place] [facility] [address] [id number] [place] [address]856 Oct, [facility] [place] [facility] [address] [id number] [place] [address] 2685 Oct, [facility] [place] [facility] [address] [id number] [place] [address] 4049 Oct, [facility] [place] [facility] [address] [id number] [place] [address] 9686 Oct, [facility] [place] [facility] [address] [id number] [place] [address] 3082 Sep, [facility] [place] [facility] [address] [id number], [place] [address] 17 Sep, 2013 [facility] [place] [facility] [address] [id number] [place] [address] 2719 Sep, [facility] [place] [facility] [address] [id number] [place] [address]- 5284 Sep, [facility] [place] [facility] [address] [id number] [place] [address] 1541 Sep, [facility] [place] [facility] [address] [id number] [place] [address]326 Aug, [facility] [address] [id number] [place] [address] Aug, [facility] [address] [id number] [place] [address]60 Aug, [facility] [address] [id number] [place] [address] 9973 Aug, [facility] [address] [id number] [place] [address] Aug, [facility] [address] [place] [id number] May, [facility] [address] [id number] [place] [address] May, [facility] [address] [id number] [place] [address] 3835 May, [facility] [address] [id number] [place] [address]- 1703 May, [facility] [address] [id number] [place] [address] 8361 May, [facility] [address] [facility] [place] [id number] [place] [address] 4264 Apr, [facility] [address] [id number] [place] [address] 0319 Apr, [facility] [address] [id number] [place] [address]- 0976 Apr, [facility] [address] [id number] [place] [address] 8240 Apr, [facility] [address] [id number] [place] [address] Apr, [facility] [address] [id number], [place] [address] 6[address] Apr, [facility] [place] [facility] [address] [id number] [place] [address]- 3548 Apr, [facility] [place] [facility] [address] [id number] [place] [address]- 7219 28 Mar, 2013 [facility] [place] [facility] [address] [id number] [place] [address] 4432 Mar, [facility] [place] [facility] [address] [id number] [place] [address]- 1536 24 Mar, 2013 [facility] [place] [facility] [address] [id number] [place] [address]- 6490 16 Mar, 2013 [facility] [place] [facility] [address] [id number] [place] [address]- 9319 Mar, [facility] [place] [facility] [address] [id number] [place] [address]- 3782 Mar, [facility] [place] [facility] [address] [id number] [place] [address]- 4421 Feb, [facility] [place] [facility] [address] [id number] [place] [address]- 6094 Feb, [facility] [place] [facility] [address] [id number] [place] [address]- 6609 Feb, [facility] [place] [facility] [address] [id number] [place] [address]- 9540 Feb, [facility] [place] [facility] [address] [id number] [place] [address]- 1839 Feb, [facility] [place] [facility] [address] [id number] [place] [address]- 0498 Feb, [facility] [place] [facility] [address] [id number] [place] [address]- 5055 Jan, [facility] [place] [facility] [address] [id number] [place] [address]- 0163 Dec, [facility] [place] [facility] [address] [id number] [place] [address]- 9707 Dec, [facility] [place] [facility] [address] [id number] [place] [address]- 7547 Dec, [facility] [place] [facility] [address] [id number] [place] [address]- 1923 Dec, [facility] [place] [facility] [address] [id number] [place] [address]- 6251 Dec, [facility] [place] [facility] [address] [id number] [place] [address]- 3830 Dec, [facility] [place] [facility] [address] [id number] [place] [address]- 6451 Dec, [facility] [place] [facility] [address] [id number] [place] [address]- 5640 Dec, [facility] [place] [facility] [address] [id number] [place] [address]- 0381 Dec, [facility] [place] [facility] [address] [id number] [place] [address]- 5052 November, [facility] [place] [facility] [address] [id number] [place] [address]- 3629 November, [facility] [place] [facility] [address] [id number] [place] [address]- 1034 Oct, [facility] [place] [facility] [address] [id number], [place] [address]- 6548 Sep, [facility] [place] [facility] [address] [id number], [place] [address]- 7463 Sep, [facility] [place] [facility] [address] [id number] [place] [address]- 6284 Sep, [facility] [place] [facility] [address] [id number] [place] [address]- 1899 Sep, [facility] [place] [facility] [address] [id number] [place] [address]- 1544 Aug, [facility] [place] [facility] [address] [facility] [id number], [place] [address]- 2546 Aug, [facility] [address] [facility] [place] [id number], [place] [address]- 9720 Jul, [facility] [address] [id number], [place] [address] 2706 Jul, [facility] [address] [facility] [place] [id number], [place] [address]- [address] Jul, [facility] [address] [id number], [place] [address] Sep, [facility] [id number], [place] [address]- 7177 Sep, [facility] [address] [id number], [place] [address]597 Sep, IMMUNIZATIONS No Known Immunizations SOCIAL HISTORY Never Assessed REASON FOR VISIT Controlled Med Refill 03/28/18 PLAN OF CARE VITAL SIGNS MEDICATIONS Medication Instructions Dosage Frequency Start Date End Date Duration Status Lyrica 150 MG Orally 3 times a day 1 capsule 8h Feb, 28 days Active Promethazine HCl 25 TAKE ONE TABLET BY MOUTH EVERY 6 HOURS NEEDED FOR NAUSEA AND VOMITING 30 days Active Oxycodone HCl 30 MG Orally 2 times a day 1 tablet as needed 12h Mar, 28 days Active Percocet 10-325 MG Orally every 4 hrs 1 tablet 4h Mar, 28 days Active RESULTS No Results PROCEDURES [...] [facility] 09/21/16 Hospitalization History Large bowel obstruction, Dehydration-[facility] 01/01/17 Hospitalization History [facility]- UTI/Sepsis 01/18/2018
--- OUTSIDE RECORDS SUMMARY | 2018-06-09 17:14 | XMS REPORT ---
Author Author LINDA BENTLEY Organization [facility] Address [address] [place] [address] Care Team Providers Care Captain [employer] Name Role Phone LINDA BENTLEY Unavailable PROBLEMS Type Condition ICD9-CM Code KOC16-CC Code Onset Dates Condition Status SNOMED Code Problem Abdominal pain, left lower quadrant R10.32 Active 413149990 Problem Mood disorder F39 Active 00723424 Problem Hypertension, benign I10 Active 74553056 Problem Chronic pain syndrome G89.4 Active 657840164 Problem Attention to urostomy Z43.6 Active 874647971 Problem Anxiety F41.9 Active 99821966 Problem Neuropathy G62.9 Active 977969515 Problem Malignant neoplasm of colon, unspecified part of colon C18.9 Active 128245136 Problem Polyneuropathy G62.9 Active 31284287 Problem Incontinence of feces, unspecified fecal incontinence type R15.9 Active 57592586 Problem Chronic fatigue, unspecified R53.82 Active 141154845 Problem Hydronephrosis with ureteral stricture, not elsewhere classified N13.1 Active 06535319 Problem Primary insomnia F51.01 Active 283591093 Problem 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 551764581 ALLERGIES No Information ENCOUNTERS Encounter Location Date Diagnosis [facility] [id number] [place] [address] 83775- 8580 17 Mar, 2018 Chronic pain syndrome G89.4 and Hypertension, benign I10 [facility] [id number] [address] 6013 Mar, Polyneuropathy G62.9 and Hypertension, benign I10 [facility] [id number] [place] [address] 43291- 2189 Feb, [facility] [id number] [place] [address] 99007- 1777 Feb, Hypertension, benign I10 [facility] [address] [address]- 8070 Feb, Hypertension, benign I10 ; Polyneuropathy G62.9 and Primary insomnia F51.01 [facility] [id number] [address]- 6939 17 Jan, 2018 Hypertension, benign I10 and Polyneuropathy G62.9 [facility] [id number] [place] [address] 47112- 1890 Jan, Hypertension, benign I10 and Neuropathy G62.9 [facility] [id number] [place] [address] 40676- 3346 Jan, [facility] [id number] [place] [address] 84984- 7128 Dec, Polyneuropathy G62.9 [facility] [id number] [place] [address] 23497- 2308 Dec, Mood disorder F39 [facility] [id number] [place] [address] 82081- 9615 November, Polyneuropathy G62.9 [facility] [id number] [place] [address] 25556- 1534 November, Medicare annual wellness visit, initial Z00.00 [facility] [address] [address]- 8725 November, Mood disorder F39 [facility] [address], [place] [address]- 9165 Oct, Polyneuropathy G62.9 [facility] [id number] [place] [address]- 3533 Oct, [facility] [address] [address]- 1214 Oct, [facility] [address] [place] [address] 87798- 7157 Oct, Mood disorder F39 ; Attention to urostomy Z43.6 ; Chronic pain syndrome G89.4 and Polyneuropathy G62.9 [facility] [address] 99986- 0883 Sep, Polyneuropathy G62.9 [facility] [id number] [place] [address] 44918- 8582 Sep, [facility] [address] 85798- 1636 Sep, Polyneuropathy G62.9 [facility] [id number] [place] [address] 17150- 4895 Aug, Polyneuropathy G62.9 [facility] [address] 65254- 2554 Aug, Malignant neoplasm of colon, unspecified part of colon C18.9 and Polyneuropathy G62.9 [facility] [id number] [place] [address] 53855- 2510 Aug, Neuropathy G62.9 and Polyneuropathy G62.9 [facility] [id number] [place] [address] 63608- 0155 Jul, Encounter for drug screening Z02.83 [facility] [id number] [place] [address] 17212- 7761 Jul, Polyneuropathy G62.9 [facility] [id number] [place] [address] 79125- 5736 Jul, [facility] [id number] [place] [address] 88596- 3226 Jul, Neuropathy G62.9 and Anxiety F41.9 [facility] [id number] [place] [address] 71694- 6293 Jul, [facility] [id number] [place] [address] 93222- 4472 Jul, [facility] [address], [place] [address]- 5644 Jul, [facility] [id number] [place] [address] 58813- 9674 Jul, Polyneuropathy G62.9 [facility] [address] [place] [address] 08791- 5085 Jul, [facility] [id number] [place] [address] 55624- 5188 Jun, [facility] [id number] [place] [address] 06231- 7846 Jun, [facility] [id number] [place] [address] 60903- 4475 Jun, [facility] [id number] [place] [address] Jun, Encounter for dental examination Z01.20 [facility] [address] [place] [address] 11622- 8106 Jun, Polyneuropathy G62.9 and Anxiety F41.9 [facility] [id number] [place] [address] 55304- 4894 Jun, [facility] [id number] [place] [address] May, Dental examination Z01.20 [facility] [address], [place] [address]- 4365 May, Polyneuropathy G62.9 [facility] [id number] [place] [address] 22645- 3163 Apr, Polyneuropathy G62.9 [facility] [address], [place] [address]- 5616 Apr, Polyneuropathy G62.9 [facility] [address] [place] [address] 73510- 9546 Apr, Hypertension, benign I10 ; Polyneuropathy G62.9 and Anxiety F41.9 [facility] [id number] [place] [address] 14469- 4254 Apr, Primary insomnia F51.01 and Polyneuropathy G62.9 [facility] [id number] [place] [address] 22250- 8979 Apr, Primary insomnia F51.01 and Polyneuropathy G62.9 [facility] [id number] [place] [address] 46152- 8124 Mar, Primary insomnia F51.01 [facility] [id number] [place] [address], [place] [address]- 9546 Mar, [facility] [id number] [place] [address] 09319- 9163 Mar, Polyneuropathy G62.9 [facility] [id number] [place] [address] 98682- 0779 Feb, Primary insomnia F51.01 [facility] [id number] [place] [address] 02042- 4078 Feb, [facility] [id number] [place] [address] 58083- 8392 Feb, [facility] [id number] [place] [address] 40728- 1575 Feb, Polyneuropathy G62.9 [facility] [id number] [place] [address] 89567- 0318 Feb, Primary insomnia F51.01 [facility] [id number] [place] [address], [place] [address]- 1518 Jan, [facility] [id number] [place] [address] 05607- 1420 Jan, [facility] [id number] [place] [address] 13759- 9062 Dec, [facility] [address], [place] [address]- 0688 Dec, Primary insomnia F51.01 [facility] [address], [place] [address]- 9951 Dec, Primary insomnia F51.01 [facility] [address], [place] [address]- 1849 Dec, [facility] [id number] [place] [address] 47355- 9254 Dec, [facility] [id number] [place] [address] 80093- 4330 Dec, [facility] [id number] [place] [address] 14827- 3534 Dec, [facility] [address] [place] [address] 48520- 2734 November, Primary insomnia F51.01 and Polyneuropathy G62.9 [facility] [address], [place] [address]- 8705 November, [facility] [id number] [place] [address] 48073- 3274 November, Abdominal pain, left lower quadrant R10.32 [facility] [address], [place] [address]- 0992 November, [facility] [address], [place] [address]- 0339 Oct, [facility] [address], [place] [address]- 9918 Oct, Abdominal pain, left lower quadrant R10.32 ; 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 and Neuropathy G62.9 [facility] [address], [place] [address]- 4981 Oct, [facility] [id number] [place] [address] 77460- 4359 Sep, [facility] [id number] [place] [address] [id number] Sep, [facility] [id number] [place] [address] 93317- 8324 Sep, [facility] [id number] [place] [address] 25197- 2645 Aug, [facility] [place] [facility] [address] 92451- 5098 Aug, [facility] [id number] [place] [address] 989270- 3105 Aug, Abdominal pain, left lower quadrant R10.32 ; Neuropathy G62.9 and Anxiety F41.9 [facility] [address] [place] [address] Jul, [facility] [place] [facility] [id number] [place] [address] 74907- 5157 Jul, [facility] [id number] [place] [address] 47855 -5671 Jul, [facility] [place] [facility] [id number] [place] [address] 56133- 9230 Jul, [facility] [id number] [place] [address] 28545- 3720 Jul, [facility] [place] [facility] [id number] [place] [address] 61685- 9481 Jun, [facility] [place] [facility] [id number] [place] [address] 65867- 2762 May, [facility] [place] [facility] [id number] [place] [address] 97910- 0543 May, [facility] [place] [facility] [id number] [place] [address] 52843- 1192 Apr, [facility] [place] [facility] [id number] [place] [address] 84257- 6145 Apr, Muscle spasms of both lower extremities M62.838 and Cellulitis, unspecified cellulitis site L03.90 [facility] [id number] [place] [address] 55862- 6162 Apr, [facility] [id number] [place] [address] 98743- 7215 23 Mar, 2016 Generalized abdominal pain R10.84 [facility] [id number] [place] [address] 09437- 7510 20 Mar, 2016 [facility] [id number] [place] [address] 33804- 0768 14 Mar, 2016 [facility] [id number] [place] [address] 95681- 9420 14 Mar, 2016 [facility] [id number] [place] [address] 76639- 1497 13 Mar, 2016 [facility] [id number] [place] [address] 53117- 2957 12 Mar, 2016 [facility] [address] [place] [address] 11759- 0981 09 Mar, 2016 [facility] [id number] [place] [address] 73379- 1364 06 Mar, 2016 [facility] [address] [place] [address] 63420- 1220 Feb, Other specified diseases of anus and rectum K62.89 [facility] [address], [place] [address]- 4121 Feb, [facility] [id number] [place] [address] 56404- 1719 Feb, Dizziness R42 [facility] [id number] [address]- 2546 Feb, [facility] [address] [place] [address] 40415- 2256 Jan, Polyneuropathy G62.9 [facility] [address] [facility] [id number] [place] [address]- 8480 Jan, Other specified diseases of anus and rectum K62.89 [facility] [address] [facility] [id number] [place] [address]- 4781 Jan, [facility] [address] [facility] [id number] [place] [address] -9032 Jan, [facility] [address] [facility] [id number] [place] [address]- 3070 Jan, [facility] [address] [facility] [id number] [place] [address], [place] [address]- 7677 Jan, Dizziness R42 [facility] [id number] [place] [address], [place] [address]- 2923 Dec, [facility] [address] [facility] [id number] [place] [address], [place] [address]- 0257 Dec, [facility] [address] [facility] [id number] [place] [address]- 7629 Dec, [facility] [address] [place] [address], [place] [address]- 1273 Dec, Dizziness R42 [facility] [address] [place] [address]- 2103 November, [facility] [address] [facility] [id number] [place] [address]- 6611 Oct, [facility] [address] [facility] [id number] [place] [address]- 7985 Oct, [facility] [address] [facility] [id number] [place] [address]- 2631 Oct, [facility] [address] [facility] [id number] [place] [address]- 4249 Oct, [facility] [address] [place] [address] 85292- 8900 Sep, [facility] [address] [place] [address] 16120- 5842 Sep, Primary insomnia F51.01 [facility] [id number] [place] [address] 09097- 7899 Sep, Primary insomnia F51.01 [facility] [id number] [place] [address] 81149- 9963 Sep, [facility] [id number] [place] [address] 39531- 1254 Aug, [facility] [id number] [place] [address] 55255- 7280 Aug, [facility] [id number] [place] [address] 65524- 2751 Aug, Primary insomnia F51.01 ; Mood disorder F39 ; Nausea and vomiting, unspecified intactability, vomiting of unspecified type R11.2 and Diarrhea R19.7 [facility] [id number] [place] [address] 53849- 9049 Aug, [facility] [id number] [place] [address] 77289- 0371 Aug, Folliculitis L73.9 [facility] [address] [place] [address] 33408- 7135 Aug, [facility] [id number] [place] [address] 64611- 2563 Aug, [facility] [address] [place] [address] 53477- 8867 Jul, Folliculitis L73.9 [facility] [id number] [place] [address] 43118- 4913 Jul, [facility] [address] [place] [address] 80691- 7690 Jun, Folliculitis L73.9 [facility] [address], [place] [address]- 3744 Jun, [facility] [id number] [place] [address] 16905- 4796 May, Polyneuropathy G62.9 [facility] [id number] [place] [address] 92731- 3497 May, Other specified diseases of anus and rectum K62.89 [facility] [id number] [place] [address] 31930- 3049 May, [facility] [address] 75062- 4585 May, Primary insomnia F51.01 [facility] [id number] [place] [address] 78065- 6894 May, [facility] [id number] [place] [address] 11315- 7016 May, [facility] [address] [place] [address] 25190- 2965 Apr, Other specified diseases of anus and rectum K62.89 ; Chronic fatigue R53.82 ; Urinary tract infection, site not specified N39.0 and Enterococcus as the cause of diseases classified elsewhere B95.2 [facility] [address] [place] [address] 33078- 8172 16 Apr, 2015 [facility] [id number] [place] [address] 70028- 8487 Apr, [facility] [address] [place] [address] 57611- 8642 Apr, 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 [facility] [id number] [place] [address] 43011- 5744 05 Apr, 2015 [facility] [id number] [place] [address] 36061- 3500 Mar, [place] [id number] [facility] [id number], [place] [address]- 5342 23 Mar, 2014 [facility] [id number] [place] [address] 97585- 8606 17 Mar, 2015 [facility] [id number] [place] [address] 24574 2548 14 Mar, 2015 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 [facility] [id number] [place] [address] 46023- 3954 12 Mar, 2014 [facility] [id number] [place] [address] 50310- 0964 11 Mar, 2015 [facility] [id number] [place] [address] 97137- 3890 11 Mar, 2015 [facility] [id number] [place] [address] 43894- 7493 10 Mar, 2015 [facility] [id number] [place] [address] 67961- 2228 28 Feb, 2015 [facility] [id number] [place] [address] 03197- 0226 Feb, [facility] [id number] [place] [address] 33468- 5009 Feb, [facility] [id number] [place] [address] 77114- 4694 30 Jan, 2015 [facility] [id number] [place] [address] 53814- 2541 Jan, Nausea 787.02 and Neuropathy 355.9 [facility] [id number] [address]- 0095 Jan, [facility] [id number] [address]- 2542 Jan, [facility] [address], [place] [address]- 5174 16 Jan, 2015 [facility] [place] [facility] [address] [id number] [id number] 10 Jan, 2015 Dental examination V72.2 [facility] [place] [facility] [address] [id number] [place] [address]- 4251 Jan, [facility] [place] [facility] [address] [id number] [place] [address]- 2109 Dec, [facility] [place] [facility] [address] [id number] [place] [address] Dec, [facility] [address] [id number] [place] [address] Dec, Neuropathy 355.9 [facility] [address] [id number] [place] [address] November, [facility] [address] [id number] [place] [address] November, [facility] [address] [id number], [place] [address] November, [facility] [address] [id number] [place] [address] Oct, [facility] [place] [facility] [address] [facility] [id number], [place] [address] Oct, [facility] [place] [facility] [address] [id number], [place] [address] Sep, [facility] [place] [facility] [address] [id number], [place] [address] Sep, [facility] [place] [facility] [address] [id number] [place] [address] Sep, [facility] [place] [facility] [address] [id number], [place] [address] Sep, [facility] [place] [facility] [address] [id number], [place] [address] Sep, [facility] [place] [facility] [address] [id number] [place] [address] Sep, [facility] [place] [facility] [address] [id number] [place] [address] Sep, [facility] [place] [facility] [address] [id number] [place] [address] Sep, [facility] [place] [facility] [address] [id number] [place] [address] Aug, 2014 [facility] [place] [facility] [address] [id number] [place] [address] Aug, 2014 [facility] [place] [facility] [address] [id number] [place] [address] Aug, 2014 [facility] [place] [facility] [address] [id number] [place] [address] Aug, 2014 [facility] [place] [facility] [address] [id number] [place] [address] Aug, 2014 [facility] [place] [facility] [address] [id number] [place] [address] Aug, 2014 [facility] [place] [facility] [address] [id number] [place] [address] Aug, 2014 [facility] [place] [facility] [address] [facility] [id number] [place] [address] Aug, [facility] [place] [facility] [address] [facility] [id number] [place] [address] Jul, [facility] [place] [facility] [address] [id number] [place] [address] Jul, [facility] [place] [facility] [address] [id number] [place] [address] Jun, [facility] [place] [facility] [address] [id number] [place] [address] Jun, [facility] [place] [facility] [address] [facility] [id number] [place] [address] Jun, [facility] [place] [facility] [address] [id number] [place] [address] Jun, [facility] [place] [facility] [address] [id number] [place] [address] Jun, [facility] [place] [facility] [address] [id number] [place] [address] Jun, [facility] [place] [facility] [address] [id number] [place] [address] Jun, [facility] [place] [facility] [address] [id number] [place] [address] Jun, [facility] [place] [facility] [address] [id number] [place] [address] Jun, [facility] [place] [facility] [address] [id number] [place] [address] Jun, [facility] [place] [facility] [address] [id number] [place] [address] Jun, [facility] [place] [facility] [address] [id number] [place] [address] May, [facility] [place] [facility] [address] [id number] [place] [address] May, [facility] [place] [facility] [address] [id number] [place] [address] May, [facility] [place] [facility] [address] [id number] [place] [address] May, [facility] [place] [facility] [address] [id number] [place] [address] 279[address] May, [facility] [place] [facility] [address] [id number] [place] [address] May, [facility] [place] [facility] [address] [id number] [place] [address] May, [facility] [place] [facility] [address] [id number] [place] [address] May, [facility] [place] [facility] [address] [id number] [place] [address] 39[address] May, [facility] [place] [facility] [address] [id number] [place] [address] Apr, [facility] [place] [facility] [address] [id number] [place] [address] 85[address] Apr, [facility] [place] [facility] [address] [id number] [place] [address] Apr, [facility] [place] [facility] [address] [id number] [place] [address] Apr, [facility] [place] [facility] [address] [id number] [place] [address] Apr, [facility] [place] [facility] [address] [id number] [place] [address] 134[address] Mar, [facility] [place] [facility] [address] [id number] [place] [address] Mar, [facility] [place] [facility] [address] [id number] [place] [address]- [address] Feb, [facility] [place] [facility] [address] [id number] [place] [address]- [address] Feb, [facility] [place] [facility] [address] [id number] [place] [address]- 48[address] Feb, [facility] [place] [facility] [address] [id number] [place] [address]- [address]676 Feb, [facility] [place] [facility] [address] [id number] [place] [address] 8248 Feb, [facility] [place] [facility] [address] [id number] [place] [address]32 Feb, [facility] [place] [facility] [address] [id number] [place] [address] Jan, [facility] [place] [facility] [address] [id number] [place] [address] Jan, [facility] [place] [facility] [address] [id number] [place] [address]- [address] Jan, [facility] [place] [facility] [address] [id number] [place] [address]- [address] Jan, [facility] [place] [facility] [address] [id number] [place] [address] Jan, [facility] [place] [facility] [address] [id number] [place] [address]- [address] Jan, [facility] [place] [facility] [address] [id number] [place] [address]- [address] Jan, [facility] [place] [facility] [address] [id number] [place] [address]- [address] Jan, [facility] [place] [facility] [address] [id number] [place] [address]- [address] Jan, [facility] [place] [facility] [address] [id number] [place] [address]- [address] Jan, [facility] [place] [facility] [address] [id number] [place] [address]- [address] Jan, [facility] [place] [facility] [address] [id number] [place] [address]- 8495 Dec, [facility] [place] [facility] [address] [id number] [place] [address]- 2075 Dec, [facility] [place] [facility] [address] [id number] [place] [address]- [address] Dec, [facility] [place] [facility] [address] [id number] [place] [address]- 8020 Dec, [facility] [place] [facility] [address] [id number] [place] [address]- 4[address] Dec, [facility] [place] [facility] [address] [id number] [place] [address] Dec, [facility] [place] [facility] [address] [id number] [place] [address] November, [facility] [place] [facility] [address] [id number] [place] [address]- 2414 November, [facility] [place] [facility] [address] [id number] [place] [address]- 9535 November, [facility] [place] [facility] [address] [id number] [place] [address]- [address]18 November, [facility] [place] [facility] [address] [id number] [place] [address]- [address] November, [facility] [place] [facility] [address] [id number] [place] [address]- 7000 November, [facility] [place] [facility] [address] [id number] [place] [address]- 0517 Oct, [facility] [place] [facility] [address] [id number] [place] [address]- 5469 Oct, [facility] [place] [facility] [address] [id number] [place] [address] 3213 Oct, [facility] [place] [facility] [address] [id number] [place] [address]- [address] Oct, [facility] [place] [facility] [address] [id number] [place] [address]- 9669 Sep, [facility] [place] [facility] [address] [id number], [place] [address] 17 Sep, 2013 [facility] [place] [facility] [address] [id number] [place] [address]- [address] Sep, [facility] [place] [facility] [address] [id number] [place] [address]- [address]35 Sep, [facility] [place] [facility] [address] [id number] [place] [address]- 7378 Sep, [facility] [place] [facility] [address] [id number] [place] [address]- 2476 Aug, [facility] [address] [id number] [place] [address] Aug, [facility] [address] [id number] [place] [address] 1820 Aug, [facility] [address] [id number] [place] [address]- 9251 Aug, [facility] [address] [id number] [place] [address] Aug, [facility] [address] [place] [id number] May, [facility] [address] [id number] [place] [address]- 6468 May, [facility] [address] [id number] [place] [address]- 9488 May, [facility] [address] [id number] [place] [address]- 0907 May, [facility] [address] [id number] [place] [address]- 3863 May, [facility] [address] [facility] [id number] [place] [address]- 9559 Apr, [facility] [address] [id number] [place] [address]- 8517 Apr, [facility] [address] [id number] [place] [address]- 6811 Apr, [facility] [address] [id number] [place] [address]- 9410 Apr, [facility] [address] [id number] [place] [address] Apr, [facility] [address] [id number], [place] [address]- [address]783 Apr, [facility] [place] [facility] [address] [id number] [place] [address]- 9713 Apr, [facility] [place] [facility] [address] [id number] [place] [address]- [address]48 28 Mar, 2013 [facility] [place] [facility] [address] [id number] [place] [address]- 9361 Mar, [facility] [place] [facility] [address] [id number] [place] [address]- 9061 24 Mar, 2013 [facility] [place] [facility] [address] [id number] [place] [address]- 4731 16 Mar, 2013 [facility] [place] [facility] [address] [id number] [place] [address]- 6511 Mar, [facility] [place] [facility] [address] [id number] [place] [address]- 8117 Mar, [facility] [place] [facility] [address] [id number] [place] [address]- 2713 Feb, [facility] [place] [facility] [address] [id number] [place] [address]- 0197 Feb, [facility] [place] [facility] [address] [id number] [place] [address]- 1629 Feb, [facility] [place] [facility] [address] [id number] [place] [address]- 8570 Feb, [facility] [place] [facility] [address] [id number] [place] [address]- 3069 Feb, [facility] [place] [facility] [address] [id number] [place] [address]- 5452 Feb, [facility] [place] [facility] [address] [id number] [place] [address]- 8366 Jan, [facility] [place] [facility] [address] [id number] [place] [address]- 2350 Dec, [facility] [place] [facility] [address] [id number] [place] [address]- 1537 Dec, [facility] [place] [facility] [address] [id number] [place] [address]- 2205 Dec, [facility] [place] [facility] [address] [id number] [place] [address]- 3019 Dec, [facility] [place] [facility] [address] [id number] [place] [address]- 8659 Dec, [facility] [place] [facility] [address] [id number] [place] [address]- 7853 Dec, [facility] [place] [facility] [address] [id number] [place] [address]- 2508 Dec, [facility] [place] [facility] [address] [id number] [place] [address]- 5582 Dec, [facility] [place] [facility] [address] [id number] [place] [address]- 8992 Dec, [facility] [place] [facility] [address] [id number] [place] [address]- 3406 November, [facility] [place] [facility] [address] [id number] [place] [address]- 8364 November, [facility] [place] [facility] [address] [id number] [place] [address]- 7935 Oct, [facility] [place] [facility] [address] [id number], [place] [address]- 9[address] Sep, [facility] [place] [facility] [address] [id number], [place] [address]- 6787 Sep, [facility] [place] [facility] [address] [id number] [place] [address]- 4560 Sep, [facility] [place] [facility] [address] [id number] [place] [address]- 3514 Sep, [facility] [place] [facility] [address] [id number] [place] [address]- 1044 Aug, [facility] [place] [facility] [address] [facility] [id number], [place] [address]- [address] Aug, [facility] [address] [id number], [place] [address] Jul, [facility] [id number], [place] [address]- 2546 Jul, [facility] [address] [id number], [place] [address]- 2546 Jul, [facility] [id number], [place] [address]- 25[address] Sep, [facility] [id number], [place] [address]- [address] Sep, [facility] [id number], [place] [address]- [address] Sep, IMMUNIZATIONS No Known Immunizations SOCIAL HISTORY Never Assessed REASON FOR VISIT ACYCLOVIR note PLAN OF CARE VITAL SIGNS MEDICATIONS Medication Instructions Dosage Frequency Start Date End Date Duration Status Acyclovir 400 mg Orally Twice a day 1 tablet 12h Feb, Active RESULTS No Results PROCEDURES No Known [...] [facility] 09/21/16 Hospitalization History Large bowel obstruction, Dehydration-[facility] 01/01/17 Hospitalization History [facility] [place], operated by [facility]- UTI/Sepsis 01/18/2018
--- OUTSIDE RECORDS SUMMARY | 2018-06-09 17:15 | XMS REPORT ---
Author Author LINDA BENTLEY Organization [facility] Address [address] [place] [address] Care Team Providers Care Medical Social Worker Name Role Phone LINDA BENTLEY Unavailable PROBLEMS Type Condition ICD9-CM Code [id number] Code Onset Dates Condition Status SNOMED Code Problem Abdominal pain, left lower quadrant R10.32 Active 681370461 Problem Mood disorder F39 Active 94025365 Problem Hypertension, benign I10 Active 69557351 Problem Chronic pain syndrome G89.4 Active 494261771 Problem Attention to urostomy Z43.6 Active 866587940 Problem Anxiety F41.9 Active 28160930 Problem Neuropathy G62.9 Active 749311608 Problem Malignant neoplasm of colon, unspecified part of colon C18.9 Active 627401053 Problem Polyneuropathy G62.9 Active 66778376 Problem Incontinence of feces, unspecified fecal incontinence type R15.9 Active 25244685 Problem Chronic fatigue, unspecified R53.82 Active 823549588 Problem Hydronephrosis with ureteral stricture, not elsewhere classified N13.1 Active 31931066 Problem Primary insomnia F51.01 Active 569978703 Problem 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 912716064 ALLERGIES Substance Reaction Event Type Date Status Morphine itching Drug Allergy Feb, Active Codeine nausea and vomiting Drug Allergy Feb, Active ENCOUNTERS Encounter Location Date Diagnosis [facility] [id number] [address] Mar, Chronic pain syndrome G89.4 and Hypertension, benign I10 [facility] [id number] [place] [address] 20226- 1551 Mar, Polyneuropathy G62.9 and Hypertension, benign I10 [facility] [id number], [place] [address] 90[address] Feb, [facility] [id number], [place] [address] 56[address] 16 Feb, 2018 Hypertension, benign I10 [facility] [id number] [place] [address] 85356- 0177 15 Feb, 2018 Hypertension, benign I10 ; Polyneuropathy G62.9 and Primary insomnia F51.01 [facility] [id number] [place] [address] 22880- 4727 Jan, Hypertension, benign I10 and Polyneuropathy G62.9 [facility] [id number] [place] [address] 47322- 8185 Jan, Hypertension, benign I10 and Neuropathy G62.9 [facility] [id number] [place] [address] 64628- 7682 Jan, [facility] [id number] [place] [address] 29328- 8438 Dec, Polyneuropathy G62.9 [facility] [id number], [place] [address] Dec, Mood disorder F39 [facility] [id number] [place] [address] 12767- 9268 November, Polyneuropathy G62.9 [facility] [id number], [place] [address] 2086 November, Medicare annual wellness visit, initial Z00.00 [facility] [id number], [place] [address] 9494 November, Mood disorder F39 [facility] [id number], [place] [address] 3244 Oct, Polyneuropathy G62.9 [facility] [id number], [place] [address] 3995 Oct, [facility] [id number], [place] [address]- 2148 Oct, [facility] [id number] [place] [address] 45856- 8908 Oct, Mood disorder F39 ; Attention to urostomy Z43.6 ; Chronic pain syndrome G89.4 and Polyneuropathy G62.9 [facility] [id number] [place] [address] 02799- 1423 Sep, Polyneuropathy G62.9 [facility] [address] 6[address]56- 8185 Sep, [facility] [id number] [place] [address] 45856- 2691 Sep, Polyneuropathy G62.9 [facility] [id number] [place] [address] 18037- 2748 Aug, Polyneuropathy G62.9 [facility] [id number] [place] [address] 91980- 7494 Aug, Malignant neoplasm of colon, unspecified part of colon C18.9 and Polyneuropathy G62.9 [facility] [id number] [place] [address] 84311- 3249 Aug, Neuropathy G62.9 and Polyneuropathy G62.9 [facility] [id number] [place] [address] 62438- 0432 Jul, Encounter for drug screening Z02.83 [facility] [id number] [place] [address] 57223- 7658 Jul, Polyneuropathy G62.9 [facility] [id number] [place] [address] 83163- 0005 Jul, [facility] [id number] [place] [address] 05942- 4186 Jul, Neuropathy G62.9 and Anxiety F41.9 [facility] [id number] [place] [address] 31672- 6697 Jul, [facility] [id number], [place] [address]- 9145 Jul, [facility] [id number], [place] [address]- 4209 Jul, [facility] [id number], [place] [address]- 2554 Jul, Polyneuropathy G62.9 [facility] [id number] [place] [address] 00312- 9349 Jul, [facility] [id number] [place] [address] 96502- 1526 Jun, [facility] [id number] [place] [address] 31921- 0575 Jun, [facility] [id number] [place] [address] 93334- 3300 Jun, [facility] [id number] [place] [address] 07 Jun, 2017 Encounter for dental examination Z01.20 [facility] [id number] [place] [address] 16558- 4924 Jun, Polyneuropathy G62.9 and Anxiety F41.9 [facility] [id number], [place] [address]- 5322 Jun, [facility] [id number] [place] [address] May, Dental examination Z01.20 [facility] [id number], [place] [address]- 4791 May, Polyneuropathy G62.9 [facility] [id number], [place] [address]- 6381 Apr, Polyneuropathy G62.9 [facility] [address], [place] [address]- 4152 Apr, Polyneuropathy G62.9 [facility] [id number] [place] [address] 91044- 6244 Apr, Hypertension, benign I10 ; Polyneuropathy G62.9 and Anxiety F41.9 [facility] [id number] [place] [address] 78217- 7522 Apr, Primary insomnia F51.01 and Polyneuropathy G62.9 [facility] [address] 6[address]77- 1804 Apr, Primary insomnia F51.01 and Polyneuropathy G62.9 [facility] [id number] [place] [address] 15949- 0370 Mar, Primary insomnia F51.01 [facility] [id number] [place] [address] 32361- 4640 Mar, [facility] [address] 19847- 6622 Mar, Polyneuropathy G62.9 [facility] [id number] [place] [address] 60409- 5435 Feb, Primary insomnia F51.01 [facility] [id number] [place] [address] 77053- 3751 Feb, [facility] [id number] [place] [address] 37885- 1631 Feb, [facility] [id number] [place] [address] 63359- 5603 Feb, Polyneuropathy G62.9 [facility] [id number] [place] [address] 38226- 5962 Feb, Primary insomnia F51.01 [facility] [id number] [place] [address] 15010- 8785 Jan, [facility] [id number] [place] [address] 14170- 1001 Jan, [facility] [id number], [place] [address]- 1158 Dec, [facility] [id number] [place] [address] 77258- 4561 Dec, Primary insomnia F51.01 [facility] [id number], [place] [address]- 4205 Dec, Primary insomnia F51.01 [facility] [id number] [place] [address] 36647- 1619 Dec, [facility] [id number] [place] [address] 10603- 3454 Dec, [facility] [id number] [place] [address] 28055- 4093 Dec, [facility] [id number] [place] [address] 63288- 4129 Dec, [facility] [id number] [place] [address] 27538- 6776 November, Primary insomnia F51.01 and Polyneuropathy G62.9 [facility] [id number] [place] [address] 33066- 8687 November, [facility] [id number] [place] [address] 82507- 3354 November, Abdominal pain, left lower quadrant R10.32 [facility] [id number], [place] [address]- 3027 November, [facility] [id number], [place] [address]- 0230 Oct, [facility] [id number] [place] [address] 21660- 1736 Oct, Abdominal pain, left lower quadrant R10.32 ; 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 and Neuropathy G62.9 [facility] [id number] [place] [address] 34294- 8239 Oct, [facility] [id number] [place] [address] 39800- 6318 Sep, [facility] [id number] [place] [address] [id number] Sep, [facility] [id number] [place] [address] 77836- 7020 Sep, [facility] [place] [facility] [id number] [place] [address] 34914- 7026 Aug, [facility] [id number] [place] [address] 11051- 9037 Aug, [facility] [id number] [place] [address] 675621- 5057 Aug, Abdominal pain, left lower quadrant R10.32 ; Neuropathy G62.9 and Anxiety F41.9 [facility] [address] [place] [address] Jul, [facility] [id number] [place] [address] 78393- 4422 Jul, [facility] [id number] [place] [address] 46705 -5776 Jul, [facility] [id number] [place] [address] 28528- 0997 Jul, [facility] [place] [facility] [id number] [place] [address] 33212- 1051 Jul, [facility] [id number] [place] [address] 01993- 0982 Jun, [facility] [id number] [place] [address] 78949- 6370 May, [facility] [id number] [place] [address] 47501- 2399 May, [facility] [id number] [place] [address] 38092- 1926 Apr, [facility] [id number], [place] [address]- 0935 Apr, Muscle spasms of both lower extremities M62.838 and Cellulitis, unspecified cellulitis site L03.90 [facility] [id number], [place] [address]- 8799 Apr, [facility] [id number] [place] [address] 46560- 0140 23 Mar, 2016 Generalized abdominal pain R10.84 [facility] [id number] [place] [address] 08589- 9127 20 Mar, 2016 [facility] [id number] [place] [address] 70177- 1462 14 Mar, 2016 [facility] [id number] [place] [address] 51421- 7599 14 Mar, 2016 [facility] [id number] [place] [address] 43054- 6663 13 Mar, 2016 [facility] [id number] [place] [address] 14829- 4880 12 Mar, 2016 [facility] [id number] [place] [address] 12571- 1968 09 Mar, 2016 [facility] [id number] [place] [address] 96487- 0730 06 Mar, 2016 [facility] [id number] [place] [address] 44246- 4656 Feb, Other specified diseases of anus and rectum K62.89 [facility] [id number] [place] [address] 61668- 5686 15 Feb, 2016 [facility] [id number] [place] [address] 70738- 2120 Feb, Dizziness R42 [facility] [id number] [place] [address] 72919- 0145 Feb, [facility] [address] [facility] [id number] [place] [address]- 0234 Jan, Polyneuropathy G62.9 [facility] [address] [facility] [id number] [place] [address]- 2001 Jan, Other specified diseases of anus and rectum K62.89 [facility] [address] [facility] [id number] [place] [address]- 4166 Jan, [facility] [address] [id number] [place] [address] -5703 Jan, [facility] [address] [facility] [id number] [place] [address], [place] [address]- 2545 Jan, [facility] [address] [facility] [id number] [place] [address]- 8326 Jan, Dizziness R42 [facility] [address] [address]- 2883 Dec, [facility] [address] [facility] [id number] [place] [address]- 7156 Dec, [facility] [address] [address]- 4603 Dec, [facility] [id number] [address]- 1160 Dec, Dizziness R42 [facility] [address] [address]- 9975 November, [facility] [address] [facility] [id number] [place] [address] 2544 Oct, [facility] [address] [facility] [id number] [place] [address]- 1829 Oct, [facility] [address] [facility] [id number] [place] [address]- 8770 Oct, [facility] [address] [address]- 9976 Oct, [facility] [id number], [place] [address]- 3184 Sep, [facility] [id number] [place] [address] 36767- 4108 Sep, Primary insomnia F51.01 [facility] [id number] [place] [address] 47924- 8198 Sep, Primary insomnia F51.01 [facility] [id number] [place] [address] 73296- 9861 Sep, [facility] [id number] [place] [address] 64684- 9895 Aug, [facility] [id number] [place] [address] 39713- 6436 Aug, [facility] [id number] [place] [address] 51065- 7966 Aug, Primary insomnia F51.01 ; Mood disorder F39 ; Nausea and vomiting, unspecified intactability, vomiting of unspecified type R11.2 and Diarrhea R19.7 [facility] [id number] [place] [address] 54039- 3272 Aug, [facility] [id number] [place] [address] 81675- 7642 Aug, Folliculitis L73.9 [facility] [id number] [place] [address] 74379- 4858 Aug, [facility] [id number] [place] [address] 78388- 3499 Aug, [facility] [id number] [place] [address] 33819- 1640 Jul, Folliculitis L73.9 [facility] [id number] [place] [address] 74758- 3506 Jul, [facility] [id number] [place] [address] 81845- 9106 Jun, Folliculitis L73.9 [facility] [id number] [place] [address] 13556- 2104 Jun, [facility] [id number] [place] [address] 46290- 8702 May, Polyneuropathy G62.9 [facility] [id number] [place] [address] 74630- 9243 May, Other specified diseases of anus and rectum K62.89 [place] [id number] [place] [address] 43234- 5308 May, [place] [id number] [place] [address] 21557- 6846 May, Primary insomnia F51.01 [place] [id number] [place] [address] 68591- 7165 May, [facility] [id number] [place] [address] 33835- 3961 May, [facility] [id number] [place] [address] 17399- 1811 Apr, Other specified diseases of anus and rectum K62.89 ; Chronic fatigue R53.82 ; Urinary tract infection, site not specified N39.0 and Enterococcus as the cause of diseases classified elsewhere B95.2 [place] [id number] [place] [address] 85474- 9650 Apr, [facility] [id number] [place] [address] 41039- 9821 Apr, 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 [id number] [place] [address] 16293- 4287 Apr, [facility] [id number], [place] [address] 2540 26 Mar, 2014 [facility] [address] [facility] [id number] [address]- 1196 23 Mar, 2014 [facility] [id number] [place] [address] 2546 17 Mar, 2015 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 [id number], [place] [address] 254 12 Mar, 2015 [facility] [id number], [place] [address] 2546 11 Mar, 2015 [facility] [id number], [place] [address]- 1165 11 Mar, 2015 [facility] [id number], [place] [address]- 1588 10 Mar, 2015 [facility] [id number] [address]- 2655 Feb, [facility] [id number], [place] [address]- 2888 Feb, [facility] [id number], [place] [address]- 3596 Feb, [facility] [id number] [address] 2540 30 Jan, 2015 [facility] [id number] [address]- 254 Jan, Nausea 787.02 and Neuropathy 355.9 [facility] [id number], [place] [address] Jan, [facility] [address] [id number], [place] [address] Jan, [facility] [id number] [address] Jan, [facility] [address] [id number] [place] [id number] Jan, Dental examination V72.2 [facility] [address] [id number] [place] [address] Jan, [facility] [address] [id number] [place] [address] Dec, [facility] [address] [id number] [place] [address] Dec, [facility] [address] [id number] [place] [address] Dec, Neuropathy 355.9 [facility] [address] [facility] [id number] [place] [address] November, [facility] [address] [facility] [id number] [place] [address] November, [facility] [address] [id number] [place] [address] November, [facility] [id number] [address] Oct, [facility] [address] [facility] [id number] [place] [address] Oct, [facility] [place] [facility] [address] [id number], [place] [address] Sep, [facility] [place] [facility] [address] [id number] [place] [address] Sep, [facility] [place] [facility] [address] [id number] [place] [address] Sep, [facility] [place] [facility] [address] [id number] [place] [address] Sep, [facility] [place] [facility] [address] [id number], [place] [address] Sep, [facility] [place] [facility] [address] [id number] [place] [address] Sep, [facility] [place] [facility] [address] [id number] [place] [address] Sep, [facility] [place] [facility] [address] [facility] [id number] [place] [address] Sep, [facility] [place] [facility] [address] [id number] [place] [address] Aug, 2014 [facility] [place] [facility] [address] [id number] [place] [address] Aug, 2014 [facility] [place] [facility] [address] [facility] [id number] [place] [address] Aug, 2014 [facility] [place] [facility] [address] [facility] [id number] [place] [address] Aug, 2014 [facility] [place] [facility] [address] [facility] [id number] [place] [address] Aug, 2014 [facility] [place] [facility] [address] [facility] [id number] [place] [address] Aug, 2014 [facility] [place] [facility] [address] [facility] [id number] [place] [address] Aug, [facility] [place] [facility] [address] [facility] [id number] [place] [address] Aug, 2014 [facility] [place] [facility] [address] [facility] [id number], [place] [address] Jul, [facility] [place] [facility] [address] [facility] [id number] [place] [address] Jul, [facility] [place] [facility] [address] [facility] [id number], [place] [address] Jun, [facility] [place] [facility] [address] [facility] [id number], [place] [address] Jun, [facility] [place] [facility] [address] [address] [id number] [place] [address] Jun, [facility] [place] [facility] [address] [id number] [place] [address] Jun, [facility] [place] [facility] [address] [id number] [place] [address] Jun, [facility] [place] [facility] [address] [id number] [place] [address] Jun, [facility] [place] [facility] [address] [id number] [place] [address] 47[address] Jun, [facility] [place] [facility] [address] [id number] [place] [address] Jun, [facility] [place] [facility] [address] [id number] [place] [address] Jun, [facility] [place] [facility] [address] [id number] [place] [address] 8360 Jun, [facility] [place] [facility] [address] [id number] [place] [address]16 Jun, [facility] [place] [facility] [address] [id number] [place] [address]267 May, [facility] [place] [facility] [address] [id number] [place] [address] May, [facility] [place] [facility] [address] [id number] [place] [address] 9267 May, [facility] [place] [facility] [address] [id number] [place] [address] 3831 May, [facility] [place] [facility] [address] [id number] [place] [address] 6151 May, [facility] [place] [facility] [address] [id number] [place] [address] 4789 May, [facility] [place] [facility] [address] [id number] [place] [address] 6897 May, [facility] [place] [facility] [address] [id number] [place] [address] 1474 May, [facility] [place] [facility] [address] [id number] [place] [address] 5928 May, [facility] [place] [facility] [address] [id number] [place] [address] 2258 Apr, [facility] [place] [facility] [address] [id number] [place] [address] 9533 Apr, [facility] [place] [facility] [address] [id number] [place] [address] 1905 Apr, [facility] [place] [facility] [address] [id number] [place] [address] 4095 Apr, [facility] [place] [facility] [address] [id number] [place] [address] 06[address] Apr, [facility] [place] [facility] [address] [id number] [place] [address]33 Mar, [facility] [place] [facility] [address] [id number] [place] [address] 6581 Mar, [facility] [place] [facility] [address] [id number] [place] [address] 4357 Feb, [facility] [place] [facility] [address] [id number] [place] [address] 1496 Feb, [facility] [place] [facility] [address] [id number] [place] [address] 7644 Feb, [facility] [place] [facility] [address] [id number] [place] [address] 6956 Feb, [facility] [place] [facility] [address] [id number] [place] [address] 6856 Feb, [facility] [place] [facility] [address] [id number] [place] [address] 1399 Feb, [facility] [place] [facility] [address] [id number] [place] [address] Jan, [facility] [place] [facility] [address] [id number] [place] [address] 0713 Jan, [facility] [place] [facility] [address] [id number] [place] [address] 3096 Jan, [facility] [place] [facility] [address] [id number] [place] [address] 8716 Jan, [facility] [place] [facility] [address] [id number] [place] [address]- 6957 Jan, [facility] [place] [facility] [address] [id number] [place] [address]- 4460 Jan, [facility] [place] [facility] [address] [id number] [place] [address] 2906 Jan, [facility] [place] [facility] [address] [id number] [place] [address] 6076 Jan, [facility] [place] [facility] [address] [id number] [place] [address] 1653 Jan, [facility] [place] [facility] [address] [id number] [place] [address] 3120 Jan, [facility] [place] [facility] [address] [id number] [place] [address] 2568 Jan, [facility] [place] [facility] [address] [id number] [place] [address] 1504 Dec, [facility] [place] [facility] [address] [id number] [place] [address] 2409 Dec, [facility] [place] [facility] [address] [id number] [place] [address]- 9740 Dec, [facility] [place] [facility] [address] [id number] [place] [address]- 5565 Dec, [facility] [place] [facility] [address] [id number] [place] [address]- 1682 Dec, [facility] [place] [facility] [address] [id number] [place] [address] 5986 Dec, [facility] [place] [facility] [address] [id number] [place] [address] 4448 November, [facility] [place] [facility] [address] [id number] [place] [address] 9996 November, [facility] [place] [facility] [address] [id number] [place] [address]- 1820 November, [facility] [place] [facility] [address] [id number] [place] [address] 1541 November, [facility] [place] [facility] [address] [id number] [place] [address] 0134 November, [facility] [place] [facility] [address] [id number] [place] [address] 2001 November, [facility] [place] [facility] [address] [id number] [place] [address] 9322 Oct, [facility] [place] [facility] [address] [id number] [place] [address]- 1514 Oct, [facility] [place] [facility] [address] [id number] [place] [address] 7422 Oct, [facility] [place] [facility] [address] [id number] [place] [address] 9612 Oct, [facility] [place] [facility] [address] [id number] [place] [address]- 9811 17 Sep, 2013 [facility] [place] [facility] [address] [id number] [place] [address]- 8455 17 Sep, 2013 [facility] [place] [facility] [address] [id number] [place] [address] 8354 13 Sep, 2013 [facility] [place] [facility] [address] [id number] [place] [address]405 03 Sep, 2013 [facility] [place] [facility] [address] [id number], [place] [address] Sep, [facility] [address] [id number] [place] [address] 4931 Aug, [facility] [address] [id number] [place] [address]- 2785 Aug, [facility] [address] [id number] [place] [address]- 0466 Aug, [facility] [address] [id number] [place] [address]- 0423 Aug, [facility] [address] [id number] [place] [address]- 9984 Aug, [facility] [place] [id number] May, [facility] [address] [id number] [place] [address]- 0010 May, [facility] [address] [id number], [place] [address] 4161 May, [facility] [address] [id number], [place] [address] 7[address] May, [facility] [address] [id number] [place] [address]- 7615 May, [facility] [address] [id number], [place] [address]- 0732 Apr, [facility] [address] [id number], [place] [address]- 7400 Apr, [facility] [address] [id number] [place] [address]- 7257 Apr, [facility] [address] [id number] [place] [address]- 5997 Apr, [facility] [address] [id number] [place] [address]- 8459 Apr, [facility] [address] [id number] [place] [address]- 5709 Apr, [facility] [address] [id number] [place] [address]- 3958 Apr, [facility] [place] [facility] [address] [id number] [place] [address]- 5890 Mar, [facility] [address] [id number] [place] [address]- 8964 Mar, [facility] [address] [id number] [place] [address]- 2249 24 Mar, 2013 [facility] [address] [id number] [place] [address]- 5214 16 Mar, 2013 [facility] [address] [id number] [place] [address]- 6366 Mar, [facility] [address] [id number] [place] [address]- 1711 Mar, [facility] [address] [id number] [place] [address]- 1078 Feb, [facility] [address] [id number] [place] [address]- 6173 Feb, [facility] [address] [id number] [place] [address]- 1385 Feb, [facility] [place] [facility] [address] [id number] [place] [address]- 3940 Feb, [facility] [address] [id number] [place] [address]- 8016 Feb, [facility] [place] [facility] [address] [id number] [place] [address]- 8865 Feb, [facility] [place] [facility] [address] [id number] [place] [address]- 7390 Jan, [facility] [place] [facility] [address] [id number] [place] [address]- 9837 Dec, [facility] [place] [facility] [address] [id number] [place] [address]- 3087 Dec, [facility] [place] [facility] [address] [id number] [place] [address]- 7297 Dec, [facility] [place] [facility] [address] [id number] [place] [address]- 1652 Dec, [facility] [place] [facility] [address] [id number] [place] [address]- 6063 Dec, [facility] [place] [facility] [address] [id number] [place] [address]- 9794 Dec, [facility] [place] [facility] [address] [id number] [place] [address]- 1781 Dec, [facility] [place] [facility] [address] [id number] [place] [address]- 8761 Dec, [facility] [place] [facility] [address] [id number] [place] [address]- 9404 Dec, [facility] [place] [facility] [address] [id number] [place] [address]- 6466 November, [facility] [place] [facility] [address] [id number] [place] [address]- 1016 November, [facility] [place] [facility] [address] [id number] [place] [address]- 5971 Oct, [facility] [place] [facility] [address] [id number] [place] [address]- 1978 Sep, [facility] [place] [facility] [address] [id number] [place] [address]- 5926 Sep, [facility] [place] [facility] [address] [id number] [place] [address]- 7212 15 Sep, 2012 [facility] [place] [facility] [address] [id number] [place] [address]- 7024 Sep, [facility] [place] [facility] [address] [id number], [place] [address]- 7596 Aug, [facility] [id number] [address] Aug, [facility] [id number] [address] [address] Jul, [facility] [id number], [place] [address] 2106 Jul, [facility] [id number], [place] [address]- 5828 Jul, [facility] [id number] [address] Sep, [facility] [id number] [address] Sep, [facility] [id number], [place] [address] 3741 Sep, IMMUNIZATIONS No Known Immunizations SOCIAL HISTORY Never Assessed REASON FOR VISIT Pain management (chronic), PT reports he has been struggling with his teeth lately and has been unable to get in to [facility] PLAN OF CARE VITAL SIGNS Height 67 in 2018-03-01 Weight 207 lbs 2018-03-01 Temperature 98.0 degrees Fahrenheit 2018-03-01 Heart Rate 84 bpm 2018-03-01 Respiratory Rate 20 2018-03-01 Oximetry 98 % 2018-03-01 BMI 32.42 kg/m2 2018-03-01 Blood pressure systolic 160 mmHg 2018-03-01 Blood pressure diastolic 88 mmHg 2018-03-01 MEDICATIONS Medication Instructions Dosage Frequency Start Date End Date Duration Status Acyclovir 5 % Externally Five times a day 1 application to affected area Dec, Active Promethazine HCl 25 TAKE ONE TABLET BY MOUTH EVERY 6 HOURS NEEDED FOR NAUSEA AND VOMITING Active Wheelchair 1 as directed Dec, Not-Taking Zoloft 100 mg Orally Once a day 1 tablet 24h 30 Active Blood Pressure Monitor 1 as directed Feb, Active Lyrica 150 MG Orally 3 times a day 1 capsule 8h Feb, 28 days Active Amlodipine Besylate 5 mg Orally Once a day 1 tablet 24h Feb, 30 day(s) Active Incontinence Brief Large 1 as directed Aug, Not-Taking Percocet 10-325 MG Orally every 4 hrs 1 tablet 4h Feb, Active Oxycodone HCl 30 MG Orally 2 times a day 1 tablet as needed 12h Feb, 28 days Active RESULTS No Results PROCEDURES Procedure Date Ordered Result Body Site [facility] VISIT ESTABLISHED PATIENT Mar 01, 2018 INSTRUCTIONS MEDICATIONS ADMINISTERED No Known Medications [...] Large bowel obstruction, Dehydration-VC 01/01/17 Hospitalization History [facility]- UTI/Sepsis 01/18/2018
--- OUTSIDE RECORDS SUMMARY | 2018-06-09 17:16 | XMS REPORT ---
Author Author LINDA BENTLEY Organization [facility] [place] Address [address] [place] [address] Care Team Providers Care Hide Spreader Name Role Phone LINDA BENTLEY Unavailable PROBLEMS Type Condition ICD9-CM Code DDO90-PA Code Onset Dates Condition Status SNOMED Code Problem Abdominal pain, left lower quadrant R10.32 Active 038453968 Problem Mood disorder F39 Active 91256382 Problem Hypertension, benign I10 Active 59054580 Problem Chronic pain syndrome G89.4 Active 530709793 Problem Attention to urostomy Z43.6 Active 577220733 Problem Anxiety F41.9 Active 32284600 Problem Neuropathy G62.9 Active 130390334 Problem Malignant neoplasm of colon, unspecified part of colon C18.9 Active 816587127 Problem Polyneuropathy G62.9 Active 24541197 Problem Incontinence of feces, unspecified fecal incontinence type R15.9 Active 08869002 Problem Chronic fatigue, unspecified R53.82 Active 921162669 Problem Hydronephrosis with ureteral stricture, not elsewhere classified N13.1 Active 89263575 Problem Primary insomnia F51.01 Active 449047241 Problem 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 224627388 ALLERGIES No Information ENCOUNTERS Encounter Location Date Diagnosis [facility] [place] [id number] [place] [address] 24397- 5953 17 Mar, 2018 Chronic pain syndrome G89.4 and Hypertension, benign I10 [facility] [place] [address] [address] 1474 Mar, Polyneuropathy G62.9 and Hypertension, benign I10 [facility] [place] [id number] [place] [address] 40295- 6104 Feb, [facility] [place] [id number] [place] [address] 99835- 0809 Feb, Hypertension, benign I10 [facility] [place] [address] [address] Feb, Hypertension, benign I10 ; Polyneuropathy G62.9 and Primary insomnia F51.01 [facility] [place] [id number] [address] 4777 17 Jan, 2018 Hypertension, benign I10 and Polyneuropathy G62.9 [facility] [place] [id number] [place] [address] 53287- 4606 Jan, Hypertension, benign I10 and Neuropathy G62.9 [facility] [place] [id number] [place] [address] 21249- 5482 Jan, [facility] [place] [id number] [place] [address] 51656- 9911 Dec, Polyneuropathy G62.9 [facility] [place] [id number] [place] [address] 10365- 6988 Dec, Mood disorder F39 [facility] [place] [id number] [place] [address] 09611- 8774 November, Polyneuropathy G62.9 [facility] [place] [id number] [place] [address] 60224- 7825 November, Medicare annual wellness visit, initial Z00.00 [facility] [place] [address] [address] 1159 November, Mood disorder F39 [facility] [place] [address] [address]- 9398 Oct, Polyneuropathy G62.9 [facility] [place] [id number] [address]- 5547 Oct, [facility] [place] [address] [address]- 5195 Oct, [facility] [place] [id number] [place] [address] 60378- 1715 Oct, Mood disorder F39 ; Attention to urostomy Z43.6 ; Chronic pain syndrome G89.4 and Polyneuropathy G62.9 [facility] [place] [address] 35737- 3415 Sep, Polyneuropathy G62.9 [facility] [place] [id number] [place] [address] 55947- 4324 Sep, [facility] [place] [address] 30049- 3465 Sep, Polyneuropathy G62.9 [facility] [place] [id number] [place] [address] 36586- 1100 Aug, Polyneuropathy G62.9 [facility] [place] [address] 45145- 6304 Aug, Malignant neoplasm of colon, unspecified part of colon C18.9 and Polyneuropathy G62.9 [facility] [place] [id number] [place] [address] 40632- 4866 Aug, Neuropathy G62.9 and Polyneuropathy G62.9 [facility] [place] [id number] [place] [address] 10223- 5640 Jul, Encounter for drug screening Z02.83 [facility] [place] [id number] [place] [address] 91722- 2885 Jul, Polyneuropathy G62.9 [facility] [place] [id number] [place] [address] 30086- 1799 Jul, [facility] [place] [id number] [place] [address] 99491- 4200 Jul, Neuropathy G62.9 and Anxiety F41.9 [facility] [place] [id number] [place] [address] 20664- 0246 Jul, [facility] [place] [id number] [place] [address] 65900- 0343 Jul, [facility] [place] [address] [address]- 2501 Jul, [facility] [place] [id number] [place] [address] 62317- 2521 Jul, Polyneuropathy G62.9 [facility] [place] [id number] [place] [address] 66283- 2009 Jul, [facility] [place] [id number] [place] [address] 22299- 4696 Jun, [facility] [place] [id number] [place] [address] 97503- 5400 Jun, [facility] [place] [id number] [place] [address] 28093- 7174 Jun, [facility] [id number] [place] [address] Jun, Encounter for dental examination Z01.20 [facility] [place] [id number] [place] [address] 79024- 9111 Jun, Polyneuropathy G62.9 and Anxiety F41.9 [facility] [place] [id number] [place] [address] 17513- 8802 Jun, [facility] [id number] [place] [address] May, Dental examination Z01.20 [facility] [place] [address] [address]- 9221 May, Polyneuropathy G62.9 [facility] [place] [id number] [place] [address] 54402- 9460 Apr, Polyneuropathy G62.9 [facility] [place] [address] [address]- 7676 Apr, Polyneuropathy G62.9 [facility] [place] [id number] [place] [address] 07369- 4005 Apr, Hypertension, benign I10 ; Polyneuropathy G62.9 and Anxiety F41.9 [facility] [place] [id number] [place] [address] 04667- 5544 Apr, Primary insomnia F51.01 and Polyneuropathy G62.9 [facility] [place] [id number] [place] [address] 63956- 8721 Apr, Primary insomnia F51.01 and Polyneuropathy G62.9 [facility] [place] [id number] [place] [address] 71612- 6423 Mar, Primary insomnia F51.01 [facility] [place] [id number] [place] [address], [place] [address]- 2046 Mar, [facility] [place] [id number] [place] [address] 52380- 8094 Mar, Polyneuropathy G62.9 [facility] [place] [id number] [place] [address] 25191- 8412 Feb, Primary insomnia F51.01 [facility] [place] [id number] [place] [address] 85079- 8600 Feb, [facility] [place] [id number] [place] [address] 06064- 5739 Feb, [facility] [place] [id number] [place] [address] 40677- 6799 Feb, Polyneuropathy G62.9 [facility] [place] [id number] [place] [address] 40355- 3907 Feb, Primary insomnia F51.01 [facility] [place] [id number] [place] [address], [place] [address]- 5005 Jan, [facility] [place] [id number] [place] [address] 12369- 9160 Jan, [facility] [place] [id number] [place] [address] 63362- 0189 Dec, [facility] [place] [address] [address]- 9260 Dec, Primary insomnia F51.01 [facility] [place] [address] [address]- 4343 Dec, Primary insomnia F51.01 [facility] [place] [address] [address]- 5054 Dec, [facility] [place] [id number] [place] [address] 57882- 8314 Dec, [facility] [place] [id number] [place] [address] 30173- 6114 Dec, [facility] [place] [id number] [place] [address] 72937- 3347 Dec, [facility] [place] [id number] [place] [address] 42014- 7865 November, Primary insomnia F51.01 and Polyneuropathy G62.9 [facility] [place] [address] [address]- 8205 November, [facility] [place] [id number] [place] [address] 49555- 1009 November, Abdominal pain, left lower quadrant R10.32 [facility] [place] [address] [address]- 0847 November, [facility] [place] [id number] [address]- 6431 Oct, [facility] [place] [address] [address]- 4956 Oct, Abdominal pain, left lower quadrant R10.32 ; 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 and Neuropathy G62.9 [facility] [place] [address] [address]- 9958 Oct, [facility] [place] [id number] [place] [address] 24239- 5361 Sep, [facility] [id number] [place] [address] [id number] Sep, [facility] [id number] [place] [address] 89840- 7757 Sep, [facility] [id number] [place] [address] 95406- 4740 Aug, [facility] [place] [facility] [address] 52122- 4911 Aug, [facility] [id number] [place] [address] 244866- 8819 Aug, Abdominal pain, left lower quadrant R10.32 ; Neuropathy G62.9 and Anxiety F41.9 [facility] [address] [place] [address] Jul, [facility] [place] [facility] [id number] [place] [address] 72247- 6483 Jul, [facility] [id number] [place] [address] 57345 -7060 Jul, [facility] [place] [facility] [id number] [place] [address] 07619- 3912 Jul, [facility] [id number] [place] [address] 89191- 6183 Jul, [facility] [place] [facility] [id number] [place] [address] 92442- 0237 Jun, [facility] [place] [facility] [id number] [place] [address] 61076- 1985 May, [facility] [place] [facility] [id number] [place] [address] 32543- 7667 May, [facility] [place] [facility] [id number] [place] [address] 46522- 5378 Apr, [facility] [place] [facility] [id number] [place] [address] 59553- 9643 Apr, Muscle spasms of both lower extremities M62.838 and Cellulitis, unspecified cellulitis site L03.90 [facility] [place] [id number] [place] [address] 90359- 4267 Apr, [facility] [place] [id number] [place] [address] 29413- 7710 23 Mar, 2016 Generalized abdominal pain R10.84 [facility] [place] [id number] [place] [address] 37018- 4493 20 Mar, 2016 [facility] [place] [id number] [place] [address] 71972- 4585 14 Mar, 2016 [facility] [place] [id number] [place] [address] 17051- 9004 14 Mar, 2016 [facility] [place] [id number] [place] [address] 84939- 0983 13 Mar, 2016 [facility] [place] [id number] [place] [address] 62447- 8631 12 Mar, 2016 [facility] [place] [id number] [place] [address] 78268- 4107 09 Mar, 2016 [facility] [place] [id number] [place] [address] 94685- 3749 06 Mar, 2016 [facility] [place] [id number] [place] [address] 79096- 8284 Feb, Other specified diseases of anus and rectum K62.89 [facility] [place] [address] [address]- 6930 Feb, [facility] [place] [id number] [place] [address] 92180- 9027 Feb, Dizziness R42 [facility] [place] [id number] [address]- 2546 Feb, [facility] [place] [id number] [place] [address] 81093- 9103 Jan, Polyneuropathy G62.9 [facility] [place] [address] [facility] [id number] [place] [address]- 5967 Jan, Other specified diseases of anus and rectum K62.89 [facility] [place] [address] [facility] [id number] [place] [address]- 0340 Jan, [facility] [address] [facility] [id number] [place] [address] -0349 Jan, [facility] [place] [address] [facility] [id number] [place] [address]- 4531 Jan, [facility] [place] [address] [facility] [id number] [place] [address], [place] [address]- 0943 Jan, Dizziness R42 [facility] [place] [id number] [place] [address], [place] [address]- 2522 Dec, [facility] [place] [address] [facility] [id number] [place] [address], [place] [address]- 5632 Dec, [facility] [place] [address] [facility] [id number] [place] [address]- 7733 Dec, [facility] [place] [id number] [place] [address], [place] [address]- 3220 Dec, Dizziness R42 [facility] [place] [id number] [address]- 3844 November, [facility] [place] [address] [facility] [id number] [place] [address]- 9872 Oct, [facility] [place] [address] [facility] [id number] [place] [address]- 1082 Oct, [facility] [place] [address] [facility] [id number] [place] [address]- 6097 Oct, [facility] [place] [address] [facility] [id number] [place] [address]- 8879 Oct, [facility] [place] [id number] [place] [address] 95043- 8269 Sep, [facility] [place] [id number] [place] [address] 98603- 5768 Sep, Primary insomnia F51.01 [facility] [place] [id number] [place] [address] 83107- 4868 Sep, Primary insomnia F51.01 [facility] [place] [id number] [place] [address] 51067- 5481 Sep, [facility] [place] [id number] [place] [address] 99599- 3764 Aug, [facility] [place] [id number] [place] [address] 78481- 8780 Aug, [facility] [place] [id number] [place] [address] 49014- 4868 Aug, Primary insomnia F51.01 ; Mood disorder F39 ; Nausea and vomiting, unspecified intactability, vomiting of unspecified type R11.2 and Diarrhea R19.7 [facility] [place] [id number] [place] [address] 85740- 6005 Aug, [facility] [place] [id number] [place] [address] 11175- 4857 Aug, Folliculitis L73.9 [facility] [place] [id number] [place] [address] 42107- 5778 Aug, [facility] [place] [id number] [place] [address] 22990- 6742 Aug, [facility] [place] [id number] [place] [address] 42374- 5636 Jul, Folliculitis L73.9 [facility] [place] [id number] [place] [address] 63117- 5863 Jul, [facility] [place] [id number] [place] [address] 00214- 0220 Jun, Folliculitis L73.9 [facility] [place] [id number] [address] 7[address] Jun, [facility] [place] [id number] [place] [address] 86106- 5660 May, Polyneuropathy G62.9 [facility] [place] [id number] [place] [address] 48260- 8469 May, Other specified diseases of anus and rectum K62.89 [facility] [place] [id number] [place] [address] 57978- 7296 May, [facility] [place] [address] 99134- 3896 May, Primary insomnia F51.01 [facility] [place] [id number] [place] [address] 81617- 8808 May, [facility] [place] [id number] [place] [address] 83423- 9869 May, [facility] [place] [id number] [place] [address] 92739- 1380 Apr, Other specified diseases of anus and rectum K62.89 ; Chronic fatigue R53.82 ; Urinary tract infection, site not specified N39.0 and Enterococcus as the cause of diseases classified elsewhere B95.2 [facility] [place] [id number] [place] [address] 58681- 1246 16 Apr, 2015 [facility] [place] [id number] [place] [address] 78257- 1586 Apr, [facility] [place] [id number] [place] [address] 90829- 2731 Apr, 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 [facility] [place] [id number] [place] [address] 32272- 2694 05 Apr, 2015 [facility] [place] [id number] [place] [address] 55354- 9330 Mar, [place] [id number] [facility] [id number] [address] 23 Mar, 2014 [facility] [id number] [place] [address] 56759- 9506 17 Mar, 2015 [facility] [id number] [place] [address] 31196 2541 14 Mar, 2015 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 [facility] [address] [id number] [place] [address] 84004- 7903 12 Mar, 2014 [facility] [id number] [place] [address] 25196- 9035 11 Mar, 2015 [facility] [id number] [place] [address] 91663- 9487 11 Mar, 2015 [facility] [id number] [place] [address] 79702- 0062 10 Mar, 2015 [facility] [id number] [place] [address] 17687- 4652 28 Feb, 2015 [facility] [id number] [place] [address] 12710- 7882 Feb, [facility] [id number] [place] [address] 61780- 6554 Feb, [facility] [id number] [place] [address] 12948- 5182 30 Jan, 2015 [facility] [id number] [place] [address] 22060- 254 Jan, Nausea 787.02 and Neuropathy 355.9 [facility] [id number] [address] 1428 Jan, [facility] [id number] [address] 2543 Jan, [facility] [address] [address] 7692 16 Jan, 2015 [facility] [place] [facility] [address] [id number] [id number] 10 Jan, 2015 Dental examination V72.2 [facility] [place] [facility] [address] [id number] [place] [address]- 9904 Jan, [facility] [place] [facility] [address] [id number] [place] [address]- 1438 Dec, [facility] [place] [facility] [address] [id number] [place] 4649 Dec, [facility] [address] [id number] [place] 1056 Dec, Neuropathy 355.9 [facility] [address] [id number] [place] [address]- 0754 November, [facility] [address] [id number] [place] [address]- 8648 November, [facility] [address] [id number] [address] 1132 November, [facility] [address] [id number] [place] [address]- 7118 Oct, [facility] [place] [facility] [address] [facility] [id number] [address]- 2893 Oct, [facility] [place] [facility] [address] [id number] [place] [address]- 7785 Sep, [facility] [place] [facility] [address] [id number] [place] [address]- 1648 Sep, [facility] [place] [facility] [address] [id number] [place] [address]- 2583 Sep, [facility] [place] [facility] [address] [id number] [address]- 7116 Sep, [facility] [place] [facility] [address] [id number] [address]- 5579 Sep, [facility] [place] [facility] [address] [id number] [place] [address]- 4782 Sep, [facility] [place] [facility] [address] [id number] [place] [address]- 6254 Sep, [facility] [place] [facility] [address] [id number] [place] 8237 Sep, [facility] [place] [facility] [address] [id number] [place] [address]- 6460 Aug, 2014 [facility] [place] [facility] [address] [id number] [place] [address]- 5199 Aug, 2014 [facility] [place] [facility] [address] [id number] [place] [address]- 2087 Aug, 2014 [facility] [place] [facility] [address] [id number] [place] [address]- 4231 Aug, 2014 [facility] [place] [facility] [address] [id number] [place] [address]- 6208 Aug, 2014 [facility] [place] [facility] [address] [id number] [place] [address]- 6586 Aug, 2014 [facility] [place] [facility] [address] [id number] [place] [address]- 2634 Aug, 2014 [facility] [place] [facility] [address] [facility] [id number] [place] [address]- 2819 Aug, [facility] [place] [facility] [address] [facility] [id number] [place] [address]- 8400 Jul, [facility] [place] [facility] [address] [id number] [place] [address]- 4435 Jul, [facility] [place] [facility] [address] [id number] [place] [address]- 0578 Jun, [facility] [place] [facility] [address] [id number] [place] [address]- 7896 Jun, [facility] [place] [facility] [address] [facility] [id number] [place] [address]- 4382 Jun, [facility] [place] [facility] [address] [id number] [place] [address]- 5029 Jun, [facility] [place] [facility] [address] [id number] [place] [address]- 7324 Jun, [facility] [place] [facility] [address] [id number] [place] [address]- 4681 Jun, [facility] [place] [facility] [address] [id number] [place] [address]- 3026 Jun, [facility] [place] [facility] [address] [id number] [place] [address]- 4938 Jun, [facility] [place] [facility] [address] [id number] [place] [address]- 3028 Jun, [facility] [place] [facility] [address] [id number] [place] [address]- 1666 Jun, [facility] [place] [facility] [address] [id number] [place] [address]- 7298 Jun, [facility] [place] [facility] [address] [id number] [place] [address]- 3383 May, [facility] [place] [facility] [address] [id number] [place] [address]- 9616 May, [facility] [place] [facility] [address] [id number] [place] [address]- 1860 May, [facility] [place] [facility] [address] [id number] [place] [address]- 3192 May, [facility] [place] [facility] [address] [id number] [place] [address]- 6952 May, [facility] [place] [facility] [address] [id number] [place] [address]- 9959 May, [facility] [place] [facility] [address] [id number] [place] 0292 May, [facility] [place] [facility] [address] [id number] [place] [address]- 4480 May, [facility] [place] [facility] [address] [id number] [place] [address]- 6023 May, [facility] [place] [facility] [address] [id number] [place] [address]- 1966 Apr, [facility] [place] [facility] [address] [id number] [place] [address]- 8818 Apr, [facility] [place] [facility] [address] [id number] [place] [address]- 2529 Apr, [facility] [place] [facility] [address] [id number] [place] [address]- 8956 Apr, [facility] [place] [facility] [address] [id number] [place] [address]- 2154 Apr, [facility] [place] [facility] [address] [id number] [place] [address]- 0604 Mar, [facility] [place] [facility] [address] [id number] [place] [address]- 9599 Mar, [facility] [place] [facility] [address] [id number] [place] [address]- 5273 Feb, [facility] [place] [facility] [address] [id number] [place] [address]- 1359 Feb, [facility] [place] [facility] [address] [id number] [place] [address]- 9006 Feb, [facility] [place] [facility] [address] [id number] [place] [address]- 8774 Feb, [facility] [place] [facility] [address] [id number] [place] [address]- 3703 Feb, [facility] [place] [facility] [address] [id number] [place] [address]- 3873 Feb, [facility] [place] [facility] [address] [id number] [place] [address]- 8893 Jan, [facility] [place] [facility] [address] [id number] [place] [address]- 3394 Jan, [facility] [place] [facility] [address] [id number] [place] [address]- 9346 Jan, [facility] [place] [facility] [address] [id number] [place] [address]- 0716 Jan, [facility] [place] [facility] [address] [id number] [place] [address]- 8100 Jan, [facility] [place] [facility] [address] [id number] [place] [address]- 6582 Jan, [facility] [place] [facility] [address] [id number] [place] [address]- 2907 Jan, [facility] [place] [facility] [address] [id number] [place] [address]- 1335 Jan, [facility] [place] [facility] [address] [id number] [place] [address]- 5705 Jan, [facility] [place] [facility] [address] [id number] [place] [address]- 3558 Jan, [facility] [place] [facility] [address] [id number] [place] [address]- 7173 Jan, [facility] [place] [facility] [address] [id number] [place] [address]- 8829 Dec, [facility] [place] [facility] [address] [id number] [place] [address]- 5217 Dec, [facility] [place] [facility] [address] [id number] [place] [address]- 1918 Dec, [facility] [place] [facility] [address] [id number] [place] [address]- 7381 Dec, [facility] [place] [facility] [address] [id number] [place] [address]- 6797 Dec, [facility] [place] [facility] [address] [id number] [place] [address]- 3970 Dec, [facility] [place] [facility] [address] [id number] [place] [address]- 3555 November, [facility] [place] [facility] [address] [id number] [place] [address]- 2694 November, [facility] [place] [facility] [address] [id number] [place] [address]- 6844 November, [facility] [place] [facility] [address] [id number] [place] [address]- 6809 November, [facility] [place] [facility] [address] [id number] [place] [address]- 7951 November, [facility] [place] [facility] [address] [id number] [place] [address]- 1090 November, [facility] [place] [facility] [address] [id number] [place] [address]- 7996 Oct, [facility] [place] [facility] [address] [id number] [place] [address]- 3374 Oct, [facility] [place] [facility] [address] [id number] [place] [address]- 9339 Oct, [facility] [place] [facility] [address] [id number] [place] [address]- 3315 Oct, [facility] [place] [facility] [address] [id number] [place] [address]- 9348 Sep, [facility] [place] [facility] [address] [id number] [address]- 0427 17 Sep, 2013 [facility] [place] [facility] [address] [id number] [place] [address]- 5350 Sep, [facility] [place] [facility] [address] [id number] [place] [address]- 8051 Sep, [facility] [place] [facility] [address] [id number] [place] [address]- 4387 Sep, [facility] [place] [facility] [address] [id number] [place] [address]- 9976 Aug, [facility] [address] [id number] [place] 4631 Aug, [facility] [address] [id number] [place] [address]- 8808 Aug, [facility] [address] [id number] [place] [address]- 8992 Aug, [facility] [address] [id number] [place] [address]- 3535 Aug, [facility] [address] [place] [id number] May, [facility] [address] [id number] [place] [address]- 8727 May, [facility] [address] [id number] [place] [address]- 5086 May, [facility] [address] [id number] [place] [address]- 1204 May, [facility] [address] [id number] [place] [address]- 3805 May, [facility] [address] [facility] [id number] [place] [address]- 7656 Apr, [facility] [address] [id number] [place] [address]- 6065 Apr, [facility] [address] [id number] [place] [address]- 6879 Apr, [facility] [address] [id number] [place] [address]- 1328 Apr, [facility] [address] [id number] [place] 8131 Apr, [facility] [address] [id number] [address]- 7741 Apr, [facility] [place] [facility] [address] [id number] [place] [address]- 9974 Apr, [facility] [place] [facility] [address] [id number] [place] [address]- 7751 28 Mar, 2013 [facility] [place] [facility] [address] [id number] [place] [address]- 9902 Mar, [facility] [place] [facility] [address] [id number] [place] [address]- 0994 24 Mar, 2013 [facility] [place] [facility] [address] [id number] [place] [address]- 5377 16 Mar, 2013 [facility] [place] [facility] [address] [id number] [place] [address]- 8677 Mar, [facility] [place] [facility] [address] [id number] [place] [address]- 4025 Mar, [facility] [place] [facility] [address] [id number] [place] [address]- 6586 Feb, [facility] [place] [facility] [address] [id number] [place] [address]- 5905 Feb, [facility] [place] [facility] [address] [id number] [place] [address]- 6041 Feb, [facility] [place] [facility] [address] [id number] [place] [address]- 6059 Feb, [facility] [place] [facility] [address] [id number] [place] [address]- 3695 Feb, [facility] [place] [facility] [address] [id number] [place] [address]- 5610 Feb, [facility] [place] [facility] [address] [id number] [place] [address]- 8923 Jan, [facility] [place] [facility] [address] [id number] [place] [address]- 6212 Dec, [facility] [place] [facility] [address] [id number] [place] [address]- 4449 Dec, [facility] [place] [facility] [address] [id number] [place] [address]- 4190 Dec, [facility] [place] [facility] [address] [id number] [place] [address]- 3891 Dec, [facility] [place] [facility] [address] [id number] [place] [address]- 7238 Dec, [facility] [place] [facility] [address] [id number] [place] [address]- 7721 Dec, [facility] [place] [facility] [address] [id number] [place] [address]- 3180 Dec, [facility] [place] [facility] [address] [id number] [place] [address]- 3086 Dec, [facility] [place] [facility] [address] [id number] [place] [address]- 8302 Dec, [facility] [place] [facility] [address] [id number] [place] [address]- 5499 November, [facility] [place] [facility] [address] [id number] [place] [address]- 7660 November, [facility] [place] [facility] [address] [id number] [place] [address]- 3533 Oct, [facility] [place] [facility] [address] [id number] [address]- 0721 Sep, [facility] [place] [facility] [address] [id number] [place] [address]- 8776 Sep, [facility] [place] [facility] [address] [id number] [place] [address]- 1464 Sep, [facility] [place] [facility] [address] [id number] [place] [address]- 7891 Sep, [facility] [place] [facility] [address] [id number] [place] [address]- 5298 Aug, [facility] [place] [facility] [address] [facility] [id number] [place] [address]- 2416 Aug, [facility] [place] [address] [facility] [id number] [address]- 0444 Jul, [facility] [place] [address] [id number] [address]- 5446 Jul, [facility] [place] [id number] [address]- 7947 Jul, [facility] [place] [address] [id number] [address]- 7343 Sep, [facility] [place] [id number] [address]- 8923 Sep, [facility] [place] [address] [id number] [address]- 3496 Sep, IMMUNIZATIONS No Known Immunizations SOCIAL HISTORY Never Assessed REASON FOR VISIT Controlled Med Refill PLAN OF CARE VITAL SIGNS MEDICATIONS Medication Instructions Dosage Frequency Start Date End Date Duration Status Lyrica 150 MG Orally 3 times a day 1 capsule 8h Feb, 28 days Active Zoloft 100 mg Orally Once a day 1 tablet 24h 30 Active Oxycodone HCl 30 MG Orally 2 times a day 1 tablet as needed 12h Feb, 28 days Active Percocet 10-325 MG Orally every 4 hrs 1 tablet 4h Feb, Active RESULTS No Results PROCEDURES No [...] AMS-[facility] 09/21/16 Hospitalization History Large bowel obstruction, Dehydration-VC 01/01/17 [facility]
--- OUTSIDE RECORDS SUMMARY | 2018-06-09 17:16 | XMS REPORT ---
Author Author LINDA BENTLEY Organization [facility] Address [address] [place] [address] Care Team Providers Care Consumer Science Teacher Name Role Phone LINDA BENTLEY Unavailable PROBLEMS Type Condition ICD9-CM Code LOV85-IP Code Onset Dates Condition Status SNOMED Code Problem Abdominal pain, left lower quadrant R10.32 Active 063186473 Problem Mood disorder F39 Active 69412978 Problem Hypertension, benign I10 Active 73035689 Problem Chronic pain syndrome G89.4 Active 124301200 Problem Attention to urostomy Z43.6 Active 641335059 Problem Anxiety F41.9 Active 34082795 Problem Neuropathy G62.9 Active 800852355 Problem Malignant neoplasm of colon, unspecified part of colon C18.9 Active 209287301 Problem Polyneuropathy G62.9 Active 77053367 Problem Incontinence of feces, unspecified fecal incontinence type R15.9 Active 03604790 Problem Chronic fatigue, unspecified R53.82 Active 980669792 Problem Hydronephrosis with ureteral stricture, not elsewhere classified N13.1 Active 76428975 Problem Primary insomnia F51.01 Active 836778415 Problem 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 869616226 ALLERGIES Substance Reaction Event Type Date Status Morphine Unknown Drug Allergy Jan, Active Codeine Unknown Drug Allergy Jan, Active ENCOUNTERS Encounter Location Date Diagnosis [facility] [id number] [address] Mar, [facility] [address], [place] [address] 2569 Feb, [facility] [address], [place] [address] 4220 Feb, Hypertension, benign I10 [facility] [id number], [place] [address] 2159 Feb, Hypertension, benign I10 ; Polyneuropathy G62.9 and Primary insomnia F51.01 [facility] [address], [place] [address] 12[address] Jan, Hypertension, benign I10 and Polyneuropathy G62.9 [facility] [address], [place] [address] 98[address] Jan, Hypertension, benign I10 and Neuropathy G62.9 [facility] [id number] [place] [address] 42846- 8683 Jan, [facility] [id number] [place] [address] 10413- 7967 Dec, Polyneuropathy G62.9 [facility] [id number] [place] [address] 08769- 1794 Dec, Mood disorder F39 [facility] [id number] [place] [address] 47747- 4166 November, Polyneuropathy G62.9 [facility] [id number] [place] [address] 27901- 2276 November, Medicare annual wellness visit, initial Z00.00 [facility] [address], [place] [address] 8755 November, Mood disorder F39 [facility] [id number] [place] [address] 35663- 5649 Oct, Polyneuropathy G62.9 [facility] [address], [place] [address]- 8874 Oct, [facility] [id number] [place] [address] 01578- 7322 Oct, [facility] [address], [place] [address] 4455 Oct, Mood disorder F39 ; Attention to urostomy Z43.6 ; Chronic pain syndrome G89.4 and Polyneuropathy G62.9 [facility] [address], [place] [address] 2843 Sep, Polyneuropathy G62.9 [facility] [id number] [place] [address] 41485- 0073 Sep, [facility] [id number] [place] [address] 79234- 1849 Sep, Polyneuropathy G62.9 [facility] [id number] [place] [address] 49056- 6014 Aug, Polyneuropathy G62.9 [facility] [id number] [place] [address] 56277- 4066 Aug, Malignant neoplasm of colon, unspecified part of colon C18.9 and Polyneuropathy G62.9 [facility] [id number] [place] [address] 79414- 0829 Aug, Neuropathy G62.9 and Polyneuropathy G62.9 [facility] [id number] [place] [address] 13930- 8872 Jul, Encounter for drug screening Z02.83 [facility] [id number] [place] [address] 64879- 6220 Jul, Polyneuropathy G62.9 [facility] [id number] [place] [address] 51252- 3144 Jul, [facility] [id number] [place] [address] 72312- 4215 Jul, Neuropathy G62.9 and Anxiety F41.9 [facility] [id number] [place] [address] 85527- 1384 Jul, [facility] [id number] [place] [address] 58270- 9095 Jul, [facility] [id number] [place] [address] 11076- 1911 Jul, [facility] [address], [place] [address] 7585 Jul, Polyneuropathy G62.9 [facility] [address], [place] [address]- 7632 Jul, [facility] [address], [place] [address]- 7753 Jun, [facility] [address], [place] [address]- 0642 Jun, [facility] [address], [place] [address] 5438 Jun, [facility] [id number] [address] Jun, Encounter for dental examination Z01.20 [facility] [address], [place] [address]- 1555 Jun, Polyneuropathy G62.9 and Anxiety F41.9 [facility] [address], [place] [address]- 9558 Jun, [facility] [id number], [place] [address] May, Dental examination Z01.20 [facility] [address], [place] [address]- 4677 May, Polyneuropathy G62.9 [facility] [address], [place] [address]- 7078 Apr, Polyneuropathy G62.9 [facility] [address], [place] [address]- 4634 Apr, Polyneuropathy G62.9 [facility] [address], [place] [address] 5951 Apr, Hypertension, benign I10 ; Polyneuropathy G62.9 and Anxiety F41.9 [facility] [id number] [place] [address] 23526- 7020 Apr, Primary insomnia F51.01 and Polyneuropathy G62.9 [facility] [id number] [place] [address] 39993- 1349 Apr, Primary insomnia F51.01 and Polyneuropathy G62.9 [facility] [id number] [place] [address] 56382- 4828 Mar, Primary insomnia F51.01 [facility] [id number] [place] [address] 40763- 1828 Mar, [facility] [id number] [place] [address] 16301- 0975 Mar, Polyneuropathy G62.9 [facility] [id number] [place] [address] 99546- 8102 Feb, Primary insomnia F51.01 [facility] [id number] [place] [address] 02807- 9343 Feb, [facility] [id number] [place] [address] 73001- 5235 Feb, [facility] [id number] [place] [address] 37056- 0172 Feb, Polyneuropathy G62.9 [facility] [id number] [place] [address] 47909- 5067 Feb, Primary insomnia F51.01 [facility] [id number] [place] [address] 30235- 0424 Jan, [facility] [id number] [place] [address] 41340- 0382 Jan, [facility] [id number] [place] [address] 08586- 2098 Dec, [facility] [id number] [place] [address] 47198- 4166 Dec, Primary insomnia F51.01 [facility] [address], [place] [address]- 7343 Dec, Primary insomnia F51.01 [facility] [address], [place] [address]- 2638 Dec, [facility] [address], [place] [address]- 8526 Dec, [facility] [id number] [place] [address] 25669- 6936 Dec, [facility] [address], [place] [address]- 9486 Dec, [facility] [id number] [place] [address] 58648- 8232 November, Primary insomnia F51.01 and Polyneuropathy G62.9 [facility] [id number] [place] [address] 60734- 1629 November, [facility] [id number] [place] [address] 49784- 0043 November, Abdominal pain, left lower quadrant R10.32 [facility] [id number] [place] [address] 02608- 6650 November, [facility] [address], [place] [address]- 4251 Oct, [facility] [id number] [place] [address] 84324- 9680 Oct, Abdominal pain, left lower quadrant R10.32 ; 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 and Neuropathy G62.9 [facility] [address], [place] [address]- 1239 Oct, [facility] [address], [place] [address]- 0697 Sep, [facility] [id number] [place] [address] [id number] Sep, [facility] [id number] [place] [address] 66553- 8800 Sep, [facility] [id number] [place] [address] 99990- 5756 Aug, [facility] [id number] [place] [address] 14949- 7451 Aug, [facility] [id number] [place] [address] 051499- 1174 Aug, Abdominal pain, left lower quadrant R10.32 ; Neuropathy G62.9 and Anxiety F41.9 [facility] [address] [place] [address] Jul, [facility] [id number] [place] [address] 76253- 9705 Jul, [facility] [id number] [place] [address] 75251 -4088 Jul, [facility] [id number] [place] [address] 86168- 1923 Jul, [facility] [id number] [place] [address] 84548- 1293 Jul, [facility] [id number] [place] [address] 504029- 9606 Jun, [facility] [id number] [place] [address] 82058- 2464 May, [facility] [id number] [place] [address] 07934- 8938 May, [facility] [id number] [place] [address] 170171- 3371 Apr, [facility] [address], [place] [address]- 0674 Apr, Muscle spasms of both lower extremities M62.838 and Cellulitis, unspecified cellulitis site L03.90 [facility] [id number] [place] [address] 52186- 7290 07 Apr, 2016 [facility] [id number] [place] [address] 01841- 4751 23 Mar, 2016 Generalized abdominal pain R10.84 [facility] [id number] [place] [address] 45806- 7629 20 Mar, 2016 [facility] [id number] [place] [address] 39071- 4921 14 Mar, 2016 [facility] [id number] [place] [address] 75675- 3430 14 Mar, 2016 [facility] [id number] [place] [address] 54293- 0244 13 Mar, 2016 [facility] [id number] [place] [address] 04102- 2656 12 Mar, 2016 [facility] [id number] [place] [address] 90574- 3554 09 Mar, 2016 [facility] [id number] [place] [address] 80747- 7514 06 Mar, 2016 [facility] [id number] [place] [address] 02597- 9484 17 Feb, 2016 Other specified diseases of anus and rectum K62.89 [facility] [id number] [place] [address] 80767- 3721 15 Feb, 2016 [facility] [id number] [place] [address] 74314- 7257 09 Feb, 2016 Dizziness R42 [facility] [id number] [place] [address] 49978- 0258 08 Feb, 2016 [facility] [id number] [place] [address] 77611- 6049 Jan, Polyneuropathy G62.9 [facility] [id number] [place] [address] 07656- 7913 Jan, Other specified diseases of anus and rectum K62.89 [facility] [address] [id number] [place] [address]- 6274 Jan, [facility] [address] [id number] [place] [address] Jan, [facility] [address] [id number] [place] [address]- 4490 Jan, [facility] [address] [id number] [place] [address]- 1223 Jan, Dizziness R42 [facility] [id number] [place] [address], [place] [address]- 7806 Dec, [facility] [address] [facility] [id number] [place] [address]- 7615 Dec, [facility] [address] [facility] [id number] [place] [address], [place] [address]- 9533 Dec, [facility] [address] [id number] [place] [address]- 6603 Dec, Dizziness R42 [facility] [address] [facility] [id number] [place] [address]- 3150 November, [facility] [address] [facility] [id number] [place] [address]- 6668 Oct, [facility] [address] [facility] [id number] [place] [address]- 5619 Oct, [facility] [address] [facility] [id number] [place] [address]- 2266 Oct, [facility] [address] [facility] [id number] [place] [address]- 6427 Oct, [facility] [address] [facility] [id number] [place] [address]- 1559 30 Sep, 2015 [facility] [address] [facility] [id number] [place] [address]- 1523 Sep, Primary insomnia F51.01 [facility] [id number] [place] [address] 97534- 6625 Sep, Primary insomnia F51.01 [facility] [id number] [place] [address] 61416- 1817 Sep, [facility] [id number] [place] [address] 65023- 7955 Aug, [facility] [id number] [place] [address] 01681- 1866 Aug, [facility] [id number] [place] [address] 09926- 3258 Aug, Primary insomnia F51.01 ; Mood disorder F39 ; Nausea and vomiting, unspecified intactability, vomiting of unspecified type R11.2 and Diarrhea R19.7 [facility] [id number] [place] [address] 66092- 2829 Aug, [facility] [id number] [place] [address] 95122- 3963 Aug, Folliculitis L73.9 [facility] [id number] [place] [address] 31371- 1417 Aug, [facility] [id number] [place] [address] 27100- 4243 Aug, [facility] [id number] [place] [address] 65271- 9604 Jul, Folliculitis L73.9 [facility] [id number] [place] [address] 82269- 7860 Jul, [facility] [id number] [place] [address] 73179- 7716 Jun, Folliculitis L73.9 [facility] [id number] [place] [address] 19862- 0986 Jun, [facility] [address], [place] [address]- 7960 May, Polyneuropathy G62.9 [facility] [id number] [place] [address] 26730- 4401 May, Other specified diseases of anus and rectum K62.89 [facility] [id number] [place] [address] 81183- 9114 May, [facility] [id number] [place] [address] 15501- 1687 May, Primary insomnia F51.01 [facility] [id number] [place] [address] 12670- 7108 May, [facility] [id number] [place] [address] 76370- 5321 May, [facility] [id number] [place] [address] 53416- 8397 Apr, Other specified diseases of anus and rectum K62.89 ; Chronic fatigue R53.82 ; Urinary tract infection, site not specified N39.0 and Enterococcus as the cause of diseases classified elsewhere B95.2 [facility] [id number] [place] [address] 57503- 3966 Apr, [facility] [id number] [place] [address] 09128- 5938 Apr, [facility] [id number] [place] [address] 51042- 3839 Apr, 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 [facility] [id number] [place] [address] 16650- 6868 Apr, [facility] [id number] [place] [address] 01448- 0148 Mar, [facility] [id number] [place] [address] 03851- 3928 Mar, [facility] [address] [facility] [id number], [place] [address]- 9827 17 Mar, 2015 [facility] [id number] [place] [address] 85834- 2608 14 Mar, 2015 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 [facility] [address] [facility] [id number], [place] [address]- 3335 12 Mar, 2015 [facility] [address] [facility] [id number] [place] [address] 87271- 5773 11 Mar, 2015 [facility] [address] [facility] [id number], [place] [address]- 9935 11 Mar, 2015 [facility] [id number] [place] [address] 15395- 4745 Mar, [facility] [id number] [place] [address] 27767- 1119 Feb, [facility] [id number] [place] [address] 93321- 6330 Feb, [facility] [id number] [place] [address] 15825- 5664 Feb, [facility] [id number] [place] [address]2002- 9622 30 Jan, 2015 [facility] [id number] [address] Jan, Nausea 787.02 and Neuropathy 355.9 [facility] [id number] [address] Jan, [facility] [id number] [address] Jan, [facility] [id number] [address] 16 Jan, 2015 [facility] [address] [id number] [id number] 10 Jan, 2015 Dental examination V72.2 [facility] [place] [facility] [address] [id number] [place] [address] Jan, [facility] [place] [facility] [address] [id number] [place] [address]338 Dec, [facility] [place] [facility] [address] [id number] [place] [address] 254 Dec, [facility] [place] [facility] [address] [id number] [place] [address] 2540 Dec, Neuropathy 355.9 [facility] [place] [facility] [address] [id number] [place] [address] 6021 November, [facility] [place] [facility] [address] [id number] [place] [address] November, [facility] [place] [facility] [address] [id number] [place] [address]996 November, [facility] [place] [facility] [address] [id number] [place] [address] 4596 Oct, [facility] [place] [facility] [address] [id number] [place] [address] 4261 Oct, [facility] [place] [facility] [address] [facility] [id number] [place] [address]61 Sep, [facility] [place] [facility] [address] [id number] [place] [address] 4758 Sep, [facility] [place] [facility] [address] [id number] [place] [address]- 5350 Sep, [facility] [place] [facility] [address] [id number] [place] [address]- 9289 Sep, [facility] [place] [facility] [address] [id number] [place] [address] 6511 Sep, [facility] [place] [facility] [address] [id number] [place] [address]- 6325 Sep, [facility] [place] [facility] [address] [id number] [place] [address]- 7871 Sep, [facility] [place] [facility] [address] [id number] [place] [address]- 3221 Sep, [facility] [place] [facility] [address] [id number] [place] [address] 9570 Aug, 2014 [facility] [place] [facility] [address] [id number] [place] [address] Aug, 2014 [facility] [place] [facility] [address] [id number] [place] [address]- 6487 Aug, 2014 [facility] [place] [facility] [address] [id number] [place] [address] Aug, 2014 [facility] [place] [facility] [address] [id number] [place] [address] 6214 Aug, 2014 [facility] [place] [facility] [address] [facility] [id number] [place] [address]- 8437 Aug, 2014 [facility] [place] [facility] [address] [facility] [id number] [place] [address]- 7694 Aug, 2014 [facility] [place] [facility] [address] [id number] [place] [address] 0816 Aug, 2014 [facility] [place] [facility] [address] [facility] [id number] [place] [address]- [address] Jul, [facility] [place] [facility] [address] [id number] [place] [address]- 2489 Jul, [facility] [place] [facility] [address] [id number] [place] [address]- 6421 Jun, [facility] [place] [facility] [address] [address] [id number] [place] [address] Jun, [facility] [place] [facility] [address] [facility] [id number] [place] [address] Jun, [facility] [place] [facility] [address] [facility] [id number] [place] [address]68 Jun, [facility] [place] [facility] [address] [id number] [place] [address] Jun, [facility] [place] [facility] [address] [id number] [place] [address] Jun, [facility] [place] [facility] [address] [id number] [place] [address] Jun, [facility] [place] [facility] [address] [id number] [place] [address] Jun, [facility] [place] [facility] [address] [id number] [place] [address] Jun, [facility] [place] [facility] [address] [id number] [place] [address] Jun, [facility] [place] [facility] [address] [id number] [place] [address] Jun, [facility] [place] [facility] [address] [id number] [place] [address] May, [facility] [place] [facility] [address] [id number] [place] [address] May, [facility] [place] [facility] [address] [id number] [place] [address] May, [facility] [place] [facility] [address] [id number] [place] [address] May, [facility] [place] [facility] [address] [id number] [place] [address] 1573 May, [facility] [place] [facility] [address] [id number] [place] [address] May, [facility] [place] [facility] [address] [id number] [place] [address] May, [facility] [place] [facility] [address] [id number] [place] [address] May, [facility] [place] [facility] [address] [id number] [place] [address]17 May, [facility] [place] [facility] [address] [id number] [place] [address] Apr, [facility] [place] [facility] [address] [id number] [place] [address] Apr, [facility] [place] [facility] [address] [id number] [place] [address] 3785 Apr, [facility] [place] [facility] [address] [id number] [place] [address]- 2018 Apr, [facility] [place] [facility] [address] [id number] [place] [address] Apr, [facility] [place] [facility] [address] [id number] [place] [address] Mar, [facility] [place] [facility] [address] [id number] [place] [address] Mar, [facility] [place] [facility] [address] [id number] [place] [address] Feb, [facility] [place] [facility] [address] [id number] [place] [address] Feb, [facility] [place] [facility] [address] [id number] [place] [address] Feb, [facility] [place] [facility] [address] [id number] [place] [address]841 Feb, [facility] [place] [facility] [address] [id number] [place] [address]478 Feb, [facility] [place] [facility] [address] [id number] [place] [address] 8264 Feb, [facility] [place] [facility] [address] [id number] [place] [address] 48[address] Jan, [facility] [place] [facility] [address] [id number] [place] [address] 1879 Jan, [facility] [place] [facility] [address] [id number] [place] [address] Jan, [facility] [place] [facility] [address] [id number] [place] [address] Jan, [facility] [place] [facility] [address] [id number] [place] [address] Jan, [facility] [place] [facility] [address] [id number] [place] [address] 1269 Jan, [facility] [place] [facility] [address] [id number] [place] [address]- 8[address] Jan, [facility] [place] [facility] [address] [id number] [place] [address] 2838 Jan, [facility] [place] [facility] [address] [id number] [place] [address]- [address] Jan, [facility] [place] [facility] [address] [id number] [place] [address]- [address] Jan, [facility] [place] [facility] [address] [id number] [place] [address] Jan, [facility] [place] [facility] [address] [id number] [place] [address] Dec, [facility] [place] [facility] [address] [id number] [place] [address]75 Dec, [facility] [place] [facility] [address] [id number] [place] [address]- [address]226 Dec, [facility] [place] [facility] [address] [id number] [place] [address]- [address] Dec, [facility] [place] [facility] [address] [id number] [place] [address]- 1213 Dec, [facility] [place] [facility] [address] [id number] [place] [address] Dec, [facility] [place] [facility] [address] [id number] [place] [address] November, [facility] [place] [facility] [address] [id number] [place] [address] 7537 November, [facility] [place] [facility] [address] [id number] [place] [address] 1575 November, [facility] [place] [facility] [address] [id number] [place] [address]- 5754 November, [facility] [place] [facility] [address] [id number] [place] [address] 1847 November, [facility] [place] [facility] [address] [id number] [place] [address]- [address]331 November, [facility] [place] [facility] [address] [id number] [place] [address]- 7063 Oct, [facility] [place] [facility] [address] [id number] [place] [address]- 5249 Oct, [facility] [place] [facility] [address] [id number] [place] [address]- 4946 Oct, [facility] [place] [facility] [address] [id number] [place] [address] 5603 Oct, [facility] [place] [facility] [address] [id number] [place] [address]- 4261 Sep, [facility] [place] [facility] [address] [id number] [place] [address] Sep, [facility] [place] [facility] [address] [id number] [place] [address] 3440 Sep, [facility] [place] [facility] [address] [id number] [place] [address]- 5092 Sep, [facility] [place] [facility] [address] [id number] [place] [address]- 4521 Sep, [facility] [place] [facility] [address] [id number] [place] [address] 8034 Aug, [facility] [place] [facility] [address] [id number] [place] [address]- 9[address] Aug, [facility] [address] [id number] [place] [address]- 8985 Aug, [facility] [address] [id number] [place] [address] 1210 Aug, [facility] [address] [id number] [place] [address] Aug, [facility] [address] [place] [id number] May, [facility] [address] [id number] [place] [address]- 7961 May, [facility] [address] [id number] [place] [address]- 8883 May, [facility] [address] [id number] [place] [address]- 2291 May, [facility] [address] [id number] [place] [address]- 5560 May, [facility] [address] [id number] [place] [address]- 7555 Apr, [facility] [address] [id number] [place] [address]- 4565 Apr, [facility] [address] [id number] [place] [address]- 2754 Apr, [facility] [address] [id number], [place] [address]- 3545 Apr, [facility] [place] [facility] [address] [id number], [place] [address]- 6483 Apr, [facility] [address] [id number], [place] [address]- 9399 Apr, [facility] [address] [facility] [id number], [place] [address]- [address] Apr, [facility] [place] [facility] [address] [id number] [place] [address]- 7264 28 Mar, 2012 [facility] [place] [facility] [address] [id number] [place] [address]- 1046 25 Mar, 2013 [facility] [place] [facility] [address] [id number] [place] [address] 2546 24 Mar, 2013 [facility] [place] [facility] [address] [id number] [place] [address]- 5820 16 Mar, 2013 [facility] [place] [facility] [address] [id number] [place] [address]- 5804 12 Mar, 2013 [facility] [place] [facility] [address] [id number] [place] [address]- 8311 06 Mar, 2013 [facility] [place] [facility] [address] [id number] [place] [address]- 2567 Feb, [facility] [place] [facility] [address] [id number] [place] [address]- 2295 Feb, [facility] [place] [facility] [address] [id number] [place] [address]- 5268 Feb, [facility] [place] [facility] [address] [id number] [place] [address]- 8267 Feb, [facility] [place] [facility] [address] [id number] [place] [address]- 6138 Feb, [facility] [place] [facility] [address] [id number] [place] [address]- 9512 Feb, [facility] [place] [facility] [address] [id number] [place] [address]- 6907 Jan, [facility] [place] [facility] [address] [id number] [place] [address]- 1693 Dec, [facility] [place] [facility] [address] [id number] [place] [address]- 7844 Dec, [facility] [place] [facility] [address] [id number] [place] [address]- 7566 Dec, [facility] [place] [facility] [address] [id number] [place] [address]- 2811 Dec, [facility] [place] [facility] [address] [id number] [place] [address]- 6693 Dec, [facility] [place] [facility] [address] [id number] [place] [address]- 2867 18 Dec, 2012 [facility] [place] [facility] [address] [id number] [place] [address]- 5345 17 Dec, 2012 [facility] [place] [facility] [address] [id number] [place] [address]- 8877 Dec, [facility] [place] [facility] [address] [id number] [place] [address]- 3852 Dec, [facility] [place] [facility] [address] [id number] [place] [address]- 3252 November, [facility] [place] [facility] [address] [id number] [place] [address]- 7804 November, [facility] [place] [facility] [address] [id number] [place] [address]- [address] Oct, [facility] [place] [facility] [address] [id number] [place] [address]- 9145 Sep, [facility] [place] [facility] [address] [id number], [place] [address]- 7587 Sep, [facility] [place] [facility] [address] [id number], [place] [address]- 8556 15 Sep, 2012 [facility] [place] [facility] [address] [id number] [place] [address]- 1431 Sep, [facility] [place] [facility] [address] [id number], [place] [address]- 2675 Aug, [facility] [place] [facility] [address] [id number] [place] [address]- 6695 08 Aug, 2012 [facility] [place] [facility] [address] [facility] [id number], [place] [address] Jul, [facility] [address] [facility] [id number], [place] [address] Jul, [facility] [address] [id number], [place] [address] Jul, [facility] [address] [facility] [id number], [place] [address]- 1083 Sep, [facility] [address] [facility] [id number], [place] [address]- 7616 Sep, [facility] [address] [facility] [id number], [place] [address]- 8421 Sep, IMMUNIZATIONS No Known Immunizations SOCIAL HISTORY Never Assessed REASON FOR VISIT [facility] Follow up , PT reports he went the [facility] ER 01/16 and had to stay overnight due to a virus. PT was released 01/18, PT notes he has been doing better but has some [facility] PLAN OF CARE VITAL SIGNS Height 67 in 2018-01-29 Weight 198.2 lbs 2018-01-29 Temperature 97.9 degrees Fahrenheit 2018-01-29 Heart Rate 76 bpm 2018-01-29 Respiratory Rate 18 2018-01-29 Oximetry on room air:98 % 2018-01-29 BMI 31.04 kg/m2 2018-01-29 Blood pressure systolic 138 mmHg 2018-01-29 Blood pressure diastolic 90 mmHg 2018-01-29 MEDICATIONS Medication Instructions Dosage Frequency Start Date End Date Duration Status Oxycodone HCl 30 MG Orally 2 times a day 1 tablet as needed 12h Dec, 28 days Active Zofran ODT 8 MG Orally every 8 hrs prn nausea/vomiting- 2nd line 1 tablet on the tongue and allow to dissolve Jan, Jan, Active Acyclovir 5 % Externally Five times a day 1 application to affected area Dec, Not-Taking Wheelchair 1 as directed Dec, Not-Taking Promethazine HCl 25 MG Orally every 6 hrs prn nausea/vomiting- use first before Zofran 1 tablet as needed Jan, Jan, Active Zoloft 100 mg Orally Once a day 1 tablet 24h 30 Not-Taking Percocet 10-325 MG Orally every 4 hrs 1 tablet 4h Dec, Active Lyrica 150 MG Orally 3 times a day 1 capsule 8h Feb, 28 days Active Incontinence Brief Large 1 as directed Aug, Not-Taking RESULTS No Results PROCEDURES Procedure Date Ordered Result Body Site [facility] VISIT ESTABLISHED PATIENT January 29, 2018 INSTRUCTIONS MEDICATIONS ADMINISTERED No Known Medications [...]
--- OUTSIDE RECORDS SUMMARY | 2018-06-09 17:17 | XMS REPORT ---
Author Author LINDA BENTLEY Organization [facility] Address [address] [place] [address] Care Team Providers Care Supervisor [employer] Name Role Phone LINDA BENTLEY Unavailable PROBLEMS Type Condition ICD9-CM Code [id number] Code Onset Dates Condition Status SNOMED Code Problem Abdominal pain, left lower quadrant R10.32 Active 035943307 Problem Mood disorder F39 Active 43020210 Problem Hypertension, benign I10 Active 71474007 Problem Chronic pain syndrome G89.4 Active 959362987 Problem Attention to urostomy Z43.6 Active 285303457 Problem Anxiety F41.9 Active 44932619 Problem Neuropathy G62.9 Active 074288259 Problem Malignant neoplasm of colon, unspecified part of colon C18.9 Active 282081605 Problem Polyneuropathy G62.9 Active 46899288 Problem Incontinence of feces, unspecified fecal incontinence type R15.9 Active 75348627 Problem Chronic fatigue, unspecified R53.82 Active 418015558 Problem Hydronephrosis with ureteral stricture, not elsewhere classified N13.1 Active 78841699 Problem Primary insomnia F51.01 Active 555913555 Problem 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 556261330 ALLERGIES No Information ENCOUNTERS Encounter Location Date Diagnosis [place] [id number] [place] [address] 88980- 0748 Mar, [place] [id number] [place] [address] 56859- 5191 Feb, [place] [address] [place] [id number] [place] [address] 95127- 8833 Feb, Hypertension, benign I10 [place] [id number] [place] [address] 64363- 3677 Feb, Hypertension, benign I10 ; Polyneuropathy G62.9 and Primary insomnia F51.01 [place] [address], [place] [address]- 0085 17 Jan, 2018 Hypertension, benign I10 and Polyneuropathy G62.9 [facility] [address], [place] [address]- 9613 Jan, Hypertension, benign I10 and Neuropathy G62.9 [facility] [address] [place] [address] 08456- 7823 Jan, [facility] [address] [place] [id number] [place] [address] 97199- 0372 Dec, Polyneuropathy G62.9 [facility] [address] [place] [id number] [place] [address] 03215- 6046 Dec, Mood disorder F39 [facility] [id number] [place] [address] 43610- 6102 November, Polyneuropathy G62.9 [facility] [id number] [place] [address] 58673- 3525 November, Medicare annual wellness visit, initial Z00.00 [facility] [id number] [place] [address] 27310- 9461 November, Mood disorder F39 [facility] [id number] [place] [address] 43199- 4724 Oct, Polyneuropathy G62.9 [facility] [address] [address] 75[address] Oct, [facility] [address], [place] [address]- 5330 Oct, [facility] [address] [place] [id number] [place] [address] 80205- 9217 Oct, Mood disorder F39 ; Attention to urostomy Z43.6 ; Chronic pain syndrome G89.[address] [facility] [address], [place] [address]- 9049 Sep, Polyneuropathy G62.9 [facility] [id number] [place] [address] 66427- 4300 Sep, [facility] [address] [place] [address] 78316- 1217 Sep, Polyneuropathy G62.9 [facility] [address] [place] [id number] [place] [address] 96569- 1484 Aug, Polyneuropathy G62.9 [facility] [address] [place] [address] [id number] [place] [address] 64861- 8331 Aug, Malignant neoplasm of colon, unspecified part of colon C18.[address] [facility] [address] [place] [id number] [place] [address] 47217- 3005 Aug, Neuropathy G62.[address] [facility] [address] [place] [address] [id number] [place] [address] 30618- 2523 Jul, Encounter for drug screening Z02.83 [facility] [address] [place] [id number] [place] [address] 30876- 8058 Jul, Polyneuropathy G62.9 [facility] [address] [place] [address] 62307- 9726 Jul, [facility] [address] [place] [address] 41846- 1870 Jul, Neuropathy G62.[address] [facility] [address] [place] [address] 75919- 7159 Jul, [facility] [address] [place] [id number] [place] [address] 21142- 9376 Jul, [facility] [address] [place] [address] 54369- 0617 Jul, [facility] [address] [place] [address] 55203- 3008 Jul, Polyneuropathy G62.9 [facility] [address], [place] [address]- 5377 Jul, [facility] [address], [place] [address]- 5278 Jun, [facility] [address] [place] [address] 42876- 6985 Jun, [facility] [address] [place] [address] 68715- 8038 Jun, [facility] [address] [place] [id number] [place] [address] Jun, Encounter for dental examination Z01.20 [facility] [address] [place] [address] 46757- 9991 Jun, Polyneuropathy G62.[address] [facility] [address] [place] [address] 88670- 2186 Jun, [facility] [id number] [address] May, Dental examination Z01.20 [facility] [address], [place] [address]- 9648 May, Polyneuropathy G62.9 [facility] [address], [place] [address]- 3102 Apr, Polyneuropathy G62.9 [facility] [address] [place] [address] 76072- 2872 Apr, Polyneuropathy G62.9 [facility] [address], [place] [address]- 0572 Apr, Hypertension, benign I10 ; Polyneuropathy G62.[address] [facility] [address], [place] [address]- 9228 Apr, Primary insomnia F51.[address] [facility] [address] [place] [address], [place] [address]- 0015 Apr, Primary insomnia F51.[address] [facility] [address] [place] [id number] [place] [address], [place] [address]- 0657 Mar, Primary insomnia F51.01 [facility] [address] [place] [id number] [place] [address], [place] [address]- 6258 Mar, [facility] [address] [place] [id number] [place] [address], [place] [address]- 9492 Mar, Polyneuropathy G62.9 [facility] [address] [place] [id number] [place] [address] 01137- 4725 Feb, Primary insomnia F51.01 [facility] [address] [place] [id number] [place] [address] 17798- 6006 Feb, [facility] [address] [id number] [place] [address] 31598- 6631 Feb, [facility] [address] [place] [id number] [place] [address] 76004- 1499 Feb, Polyneuropathy G62.9 [facility] [address] [place] [id number] [place] [address] 07878- 6040 Feb, Primary insomnia F51.01 [facility] [address] [place] [id number] [place] [address] 63747- 0269 Jan, [facility] [address] [place] [address] 06759- 9103 Jan, [facility] [address] [place] [id number] [place] [address] 44783- 0193 Dec, [facility] [address] [place] [address] 12817- 8238 Dec, Primary insomnia F51.01 [facility] [address] [place] [id number] [place] [address] 88626- 8379 Dec, Primary insomnia F51.01 [facility] [address], [place] [address]- 8965 Dec, [facility] [address], [place] [address]- 0491 Dec, [facility] [address], [place] [address]- 6997 Dec, [facility] [address], [place] [address]- 5016 Dec, [facility] [address] [place] [address] 89240- 3959 November, Primary insomnia F51.[address] [facility] [address], [place] [address]- 0047 November, [facility] [address] [place] [address] 80483- 7807 November, Abdominal pain, left lower quadrant R10.32 [facility] [address], [place] [address]- 4428 November, [facility] [address], [place] [address]- 6551 Oct, [facility] [address], [place] [address]- 9159 Oct, Abdominal pain, left lower quadrant R10.32 ; 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 [facility] [address], [place] [address]- 0467 Oct, [facility] [address] [place] [id number] [address]- 7728 Sep, [facility] [address] [place] [id number] [id number] Sep, [facility] [address] [place] [id number] [place] [address] 89611- 4310 Sep, [facility] [address] [place] [id number] [place] [address] 07101- 4222 Aug, [facility] [address] [place] [id number] [place] [address] 89146- 7603 Aug, [facility] [address] [place] [id number] [place] [address] 25248- 4094 Aug, Abdominal pain, left lower quadrant R10.32 ; Neuropathy G62.9 and Anxiety F41.9 [facility] [address] [place] [address] Jul, [facility] [address] [place] [id number] [place] [address] 97183- 2379 Jul, [facility] [address] [place] [id number] [place] [address] 86061 -9520 Jul, [facility] [address] [place] [id number] [place] [address] 12387- 8418 Jul, [facility] [address] [place] [id number] [place] [address] 83183- 3691 Jul, [facility] [address] [place] [id number] [place] [address] 24515- 9845 Jun, [facility] [address] [place] [id number] [place] [address] 51458- 8207 May, [facility] [address] [place] [id number] [place] [address] 69715- 3857 May, [facility] [address] [place] [address] 34031- 2400 Apr, [facility] [address] [place] [id number] [place] [address] 94855- 6424 Apr, Muscle spasms of both lower extremities M62.838 and Cellulitis, unspecified cellulitis site L03.90 [facility] [address] [place] [id number] [place] [address] 79739- 7181 Apr, [facility] [address], [place] [address]- 2876 23 Mar, 2016 Generalized abdominal pain R10.84 [facility] [address], [place] [address]- 6800 20 Mar, 2016 [facility] [address], [place] [address]- 5210 14 Mar, 2015 [facility] [address] [place] [id number] [place] [address] 14037- 6207 14 Mar, 2016 [facility] [address] [place] [id number] [place] [address] 40451- 1236 13 Mar, 2016 [facility] [address] [place] [id number] [place] [address] 04686- 3555 12 Mar, 2016 [facility] [address] [place] [address] 23687- 0417 09 Mar, 2016 [facility] [address], [place] [address]- 4721 06 Mar, 2016 [facility] [address] [place] [address] 37992- 9438 Feb, Other specified diseases of anus and rectum K62.89 [facility] [address], [place] [address]- 1480 Feb, [facility] [address], [place] [address]- 3238 Feb, D[address]iness R42 [facility] [address], [place] [address]- 7296 Feb, [facility] [address] [place] [id number] [place] [address] 68973- 9712 Jan, Polyneuropathy G62.9 [facility] [address], [place] [address]- 1292 Jan, Other specified diseases of anus and rectum K62.89 [facility] [address] [id number] [place] [address]- 8575 Jan, [facility] [address] [id number] [place] [address]1813 Jan, [facility] [address] [id number] [place] [address]- 3556 Jan, [facility] [address] [id number] [place] [address]- 9679 Jan, Dizziness R42 [facility] [address] [id number] [place] [address]- 4861 Dec, [facility] [address] [id number] [place] [address]- 4341 Dec, [facility] [address] [id number] [place] [address]- 5191 Dec, [facility] [address] [id number] [place] [address]- 0513 Dec, Dizziness R42 [facility] [address] [id number] [place] [address]- 6325 November, [facility] [address] [id number] [place] [address]- 4499 Oct, [facility] [address] [id number] [place] [address]- 3279 Oct, [facility] [address] [id number] [place] [address]- 2403 Oct, [facility] [address] [id number] [place] [address]- 6892 Oct, [facility] [address] [id number] [place] [address]- 2540 30 Sep, 2015 [facility] [address] [id number] [place] [address]- 7847 Sep, Primary insomnia F51.01 [facility] [address] [place] [id number] [place] [address] 40496- 9404 Sep, Primary insomnia F51.01 [facility] [address] [place] [id number] [place] [address] 89759- 4486 Sep, [facility] [id number] [place] [address] 54164- 3767 Aug, [facility] [address] [address]84- 5545 Aug, [facility] [id number] [place] [address] 36433- 8122 Aug, Primary insomnia F51.01 ; Mood disorder F39 ; Nausea and vomiting, unspecified intactability, vomiting of unspecified type R11.[address] [facility] [id number] [place] [address] 01491- 3063 Aug, [facility] [id number] [place] [address] 22221- 5291 Aug, Folliculitis L73.9 [facility] [id number] [place] [address] 01855- 6784 Aug, [facility] [id number] [place] [address] 09030- 3027 Aug, [facility] [id number] [place] [address] 82110- 0168 Jul, Folliculitis L73.9 [facility] [id number] [place] [address] 77542- 0120 Jul, [facility] [id number] [place] [address] 56529- 6564 Jun, Folliculitis L73.9 [facility] [id number] [place] [address] 46944- 7554 Jun, [facility] [id number] [place] [address] 41420- 5750 May, Polyneuropathy G62.9 [facility] [address], [place] [address]- 4103 May, Other specified diseases of anus and rectum K62.89 [facility] [address], [place] [address]- 1054 May, [facility] [id number] [place] [address] 72568- 1100 May, Primary insomnia F51.01 [facility] [id number] [place] [address] 15341- 1998 May, [facility] [id number] [place] [address] 19508- 0735 May, [facility] [id number] [place] [address] 22837- 8660 Apr, Other specified diseases of anus and rectum K62.89 ; Chronic fatigue R53.82 ; Urinary tract infection, site not specified N39.0 and Enterococcus as the cause of diseases classified elsewhere B95.2 [facility] [address] [place] [address] 64381- 9049 Apr, [facility] [address] [place] [address] 19033- 2113 Apr, 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 [address] [place] [address] 40905- 7974 Apr, [facility] [id number] [place] [address] 14304- 3809 Mar, [facility] [id number] [place] [address] 37886- 4351 Mar, [facility] [id number] [place] [address] 83236- 5072 17 Mar, 2015 [facility] [address], [place] [address]- 6081 14 Mar, 2015 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 [facility] [address], [place] [address]- 8427 12 Mar, 2015 [facility] [address], [place] [address]- 1377 Mar, [facility] [id number] [place] [address] 33002- 5751 Mar, [facility] [id number] [place] [address] Mar, [facility] [id number] [place] [address] Feb, [facility] [id number] [place] [address]- 1744 Feb, [facility] [address] [address] Feb, [facility] [id number] [place] [address] Jan, [facility] [address], [place] [address] Jan, Nausea 787.[address] [facility] [address], [place] [address] Jan, [facility] [address], [place] [address] Jan, [facility] [address], [place] [address] 16 Jan, 2015 [facility] [address] [id number] Jan, Dental examination V72.2 [facility] [address], [place] [address] Jan, [facility] [place] [facility] [address] [id number] [place] [address] Dec, [facility] [place] [facility] [address] [id number] [place] [address] Dec, [facility] [place] [facility] [address] [id number] [place] [address] Dec, Neuropathy 355.9 [facility] [place] [facility] [address] [id number] [place] [address] November, [facility] [place] [facility] [address] [id number] [place] [address] November, [facility] [place] [facility] [address] [id number] [place] [address] November, [facility] [place] [facility] [address] [id number] [place] [address] Oct, [facility] [place] [facility] [address] [id number] [place] [address] Oct, [facility] [place] [facility] [address] [id number] [place] [address] Sep, [facility] [place] [facility] [address] [id number] [place] [address] Sep, [facility] [place] [facility] [address] [id number] [place] [address] Sep, [facility] [place] [facility] [address] [id number] [place] [address]- [address]83 Sep, [facility] [place] [facility] [address] [id number] [place] [address] 12[address] Sep, [facility] [place] [facility] [address] [id number] [place] [address]- 7984 Sep, [facility] [place] [facility] [address] [id number] [place] [address] Sep, [facility] [place] [facility] [address] [id number] [place] [address]- [address] Sep, [facility] [place] [facility] [address] [id number] [place] [address]- [address] Aug, 2014 [facility] [place] [facility] [address] [id number] [place] [address] Aug, 2014 [facility] [place] [facility] [address] [id number] [place] [address] Aug, 2014 [facility] [place] [facility] [address] [id number] [place] [address] Aug, 2014 [facility] [place] [facility] [address] [id number] [place] [address] Aug, 2014 [facility] [place] [facility] [address] [facility] [id number] [place] [address] Aug, 2014 [facility] [place] [facility] [address] [facility] [id number] [place] [address] Aug, 2014 [facility] [place] [facility] [address] [facility] [id number] [place] [address] Aug, [facility] [place] [facility] [address] [facility] [id number] [place] [address] Jul, [facility] [place] [facility] [address] [facility] [id number] [place] [address] Jul, [facility] [place] [facility] [address] [facility] [id number] [place] [address] Jun, [facility] [place] [facility] [address] [id number] [place] [address] Jun, [facility] [place] [facility] [address] [id number] [place] [address] Jun, [facility] [place] [facility] [address] [id number] [place] [address] 1134 Jun, [facility] [place] [facility] [address] [facility] [id number], [place] [address] Jun, [facility] [place] [facility] [address] [id number] [place] [address] 0887 Jun, [facility] [place] [facility] [address] [id number] [place] [address] Jun, [facility] [place] [facility] [address] [facility] [id number] [place] [address] Jun, [facility] [place] [facility] [address] [id number] [place] [address]- 4764 Jun, [facility] [place] [facility] [address] [id number] [place] [address] Jun, [facility] [place] [facility] [address] [id number] [place] [address]005 Jun, [facility] [place] [facility] [address] [id number] [place] [address]- 0967 May, [facility] [place] [facility] [address] [id number] [place] [address]165 May, [facility] [place] [facility] [address] [id number] [place] [address]- 5787 May, [facility] [place] [facility] [address] [id number] [place] [address]- 5664 May, [facility] [place] [facility] [address] [id number], [place] [address] May, [facility] [place] [facility] [address] [id number], [place] [address] May, [facility] [place] [facility] [address] [id number] [place] [address]- 4738 May, [facility] [place] [facility] [address] [id number] [place] [address]- [address]249 May, [facility] [place] [facility] [address] [id number] [place] [address]- 5376 May, [facility] [place] [facility] [address] [id number] [place] [address] 3987 Apr, [facility] [place] [facility] [address] [id number] [place] [address]- 6294 Apr, [facility] [place] [facility] [address] [id number] [place] [address] Apr, [facility] [place] [facility] [address] [id number] [place] [address]- 4943 Apr, [facility] [place] [facility] [address] [id number] [place] [address]- 4072 Apr, [facility] [place] [facility] [address] [id number] [place] [address] 8909 Mar, [facility] [place] [facility] [address] [id number] [place] [address] 9307 Mar, [facility] [place] [facility] [address] [id number] [place] [address]- 8566 Feb, [facility] [place] [facility] [address] [id number] [place] [address] 51[address] Feb, [facility] [place] [facility] [address] [id number] [place] [address]- 2786 Feb, [facility] [place] [facility] [address] [id number] [place] [address]15 Feb, [facility] [place] [facility] [address] [id number] [place] [address]- 5859 Feb, [facility] [place] [facility] [address] [id number] [place] [address]- 2829 Feb, [facility] [place] [facility] [address] [id number] [place] [address]- 2065 Jan, [facility] [place] [facility] [address] [id number] [place] [address] 7721 Jan, [facility] [place] [facility] [address] [id number] [place] [address] 3214 Jan, [facility] [place] [facility] [address] [id number] [place] [address]- 5183 Jan, [facility] [place] [facility] [address] [id number] [place] [address]- 65[address] Jan, [facility] [place] [facility] [address] [id number] [place] [address]- 4547 Jan, [facility] [place] [facility] [address] [id number] [place] [address]- 4469 Jan, [facility] [place] [facility] [address] [id number] [place] [address]- [address] Jan, [facility] [place] [facility] [address] [id number] [place] [address]- 3527 Jan, [facility] [place] [facility] [address] [id number] [place] [address]- 4213 Jan, [facility] [place] [facility] [address] [id number] [place] [address]- 5398 Jan, [facility] [place] [facility] [address] [id number] [place] [address]- 1492 Dec, [facility] [place] [facility] [address] [id number] [place] [address]- 0070 Dec, [facility] [place] [facility] [address] [id number] [place] [address]- 7597 Dec, [facility] [place] [facility] [address] [id number] [place] [address]- 9334 Dec, [facility] [place] [facility] [address] [id number] [place] [address]- 7443 Dec, [facility] [place] [facility] [address] [id number] [place] [address]- 5583 Dec, [facility] [place] [facility] [address] [id number] [place] [address]- 9305 November, [facility] [place] [facility] [address] [id number] [place] [address]- 4033 November, [facility] [address] [id number] [place] [address]- 7955 November, [facility] [place] [facility] [address] [id number] [place] [address]- 5781 November, [facility] [place] [facility] [address] [id number] [place] [address]- 5824 November, [facility] [place] [facility] [address] [id number] [place] [address]- 8343 November, [facility] [place] [facility] [address] [id number] [place] [address]- 3300 Oct, [facility] [place] [facility] [address] [id number] [place] [address]- 9411 Oct, [facility] [place] [facility] [address] [id number] [place] [address]- 9192 Oct, [facility] [place] [facility] [address] [id number] [place] [address]- 6233 Oct, [facility] [place] [facility] [address] [id number] [place] [address]- 4241 Sep, [facility] [place] [facility] [address] [id number] [place] [address]- 6417 Sep, [facility] [place] [facility] [address] [id number] [place] [address]- 6478 Sep, [facility] [place] [facility] [address] [id number] [place] [address]- 3780 Sep, [facility] [place] [facility] [address] [id number] [place] [address]- 0206 Sep, [facility] [place] [facility] [address] [id number] [place] [address]- 0097 Aug, [facility] [place] [facility] [address] [id number] [place] [address]- 0168 Aug, [facility] [place] [facility] [address] [id number] [place] [address]- 7337 Aug, [facility] [address] [id number] [place] [address]- 3780 Aug, [facility] [address] [id number] [place] [address]- 6808 14 Aug, 2013 [facility] [place] [id number] May, [facility] [address] [id number] [place] [address]- 7686 May, [facility] [address] [id number] [place] [address]- 3702 May, [facility] [address] [id number] [place] [address]- 0770 May, [facility] [address] [id number] [place] [address]- 7759 May, [facility] [address] [id number] [place] [address]- 8446 Apr, [facility] [address] [id number] [place] [address]- 5352 Apr, [facility] [address] [id number] [place] [address]- 5641 Apr, [facility] [address] [id number] [place] [address]- 2908 Apr, [facility] [address] [id number] [place] [address]- 0164 Apr, [facility] [address] [id number] [place] [address]- 9183 Apr, [facility] [address] [id number] [place] [address]- 2546 Apr, [facility] [address] [id number] [place] [address] Mar, [facility] [place] [facility] [address] [id number] [place] [address]- 8048 25 Mar, 2013 [facility] [place] [facility] [address] [id number] [place] [address]- 4098 24 Mar, 2013 [facility] [place] [facility] [address] [id number] [place] [address]- 3617 16 Mar, 2013 [facility] [place] [facility] [address] [id number] [place] [address]- 1390 12 Mar, 2013 [facility] [place] [facility] [address] [id number] [place] [address]- 4723 Mar, [facility] [place] [facility] [address] [id number] [place] [address]- 9628 Feb, [facility] [place] [facility] [address] [id number] [place] [address]- 5884 Feb, [facility] [place] [facility] [address] [id number] [place] [address]- 8436 Feb, [facility] [place] [facility] [address] [id number] [place] [address]- 8128 Feb, [facility] [place] [facility] [address] [id number] [place] [address]- 3593 Feb, [facility] [place] [facility] [address] [id number] [place] [address]- 9520 Feb, [facility] [place] [facility] [address] [id number] [place] [address]- 4705 Jan, [facility] [place] [facility] [address] [id number] [place] [address]- 5768 Dec, [facility] [place] [facility] [address] [id number] [place] [address]- 9630 Dec, [facility] [place] [facility] [address] [id number] [place] [address]- 0104 Dec, [facility] [place] [facility] [address] [id number] [place] [address]- 7863 19 Dec, 2012 [facility] [address] [id number] [place] [address]- 4585 19 Dec, 2012 [facility] [address] [id number] [place] [address]- 7327 18 Dec, 2012 [facility] [address] [id number] [place] [address]- 9797 Dec, [facility] [place] [facility] [address] [id number] [place] [address]- 5106 Dec, [facility] [address] [id number] [place] [address]- 6567 Dec, [facility] [address] [id number] [place] [address]- 1041 November, [facility] [address] [id number] [place] [address]- 0847 November, [facility] [address] [id number] [place] [address]- 2664 Oct, [facility] [address] [id number] [place] [address]- 4475 Sep, [facility] [address] [id number] [place] [address]- 0730 Sep, [facility] [address] [id number] [place] [address]- 7518 15 Sep, 2012 [facility] [place] [facility] [address] [id number] [place] [address]- 9530 Sep, [facility] [place] [facility] [address] [id number] [place] [address]- 0598 Aug, [facility] [place] [facility] [address] [id number] [place] [address] 08 Aug, 2012 [facility] [place] [facility] [address] [id number], [place] [address] Jul, [facility] [address] [facility] [id number] [address] Jul, [facility] [address] [facility] [id number], [place] [address] Jul, [facility] [address] [facility] [id number] [address] Sep, [facility] [address] [facility] [id number], [place] [address] Sep, [facility] [address] [facility] [id number], [place] [address]- [address]82 Sep, IMMUNIZATIONS No Known Immunizations SOCIAL HISTORY Never Assessed REASON FOR VISIT Controlled Med Refill PLAN OF CARE VITAL SIGNS MEDICATIONS Medication Instructions Dosage Frequency Start Date End Date Duration Status Percocet 10-325 MG Orally every 4 hrs 1 tablet 4h Jan, Active Oxycodone HCl 30 MG Orally 2 times a day 1 tablet as needed 12h Jan, 28 days Active RESULTS No Results PROCEDURES [...] AMS-VC 09/21/16 Hospitalization History Large bowel obstruction, Dehydration-[facility] 01/01/17 Hospitalization History [facility]- UTI/Sepsis 01/18/2018
--- OUTSIDE RECORDS SUMMARY | 2018-06-09 17:18 | XMS REPORT ---
Author Author LINDA BENTLEY Organization [facility] Address [address] [place] [address] Care Team Providers Care Laboratory Supervisor Name Role Phone LINDA BENTLEY Unavailable PROBLEMS Type Condition ICD9-CM Code JTV40-OR Code Onset Dates Condition Status SNOMED Code Problem Abdominal pain, left lower quadrant R10.32 Active 138396475 Problem Mood disorder F39 Active 73538309 Problem Hypertension, benign I10 Active 53860888 Problem Chronic pain syndrome G89.4 Active 986714076 Problem Attention to urostomy Z43.6 Active 974508157 Problem Anxiety F41.9 Active 63802704 Problem Neuropathy G62.9 Active 079651896 Problem Malignant neoplasm of colon, unspecified part of colon C18.9 Active 621235402 Problem Polyneuropathy G62.9 Active 51588416 Problem Incontinence of feces, unspecified fecal incontinence type R15.9 Active 60826356 Problem Chronic fatigue, unspecified R53.82 Active 569125560 Problem Hydronephrosis with ureteral stricture, not elsewhere classified N13.1 Active 73337683 Problem Primary insomnia F51.01 Active 472788395 Problem 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 [id number] [place] [address] 25998- 8681 Feb, [place] [address] [place] [id number] [place] [address] 62656- 9583 Feb, Hypertension, benign I10 [place] [id number] [place] [address] 44035- 7664 Feb, Hypertension, benign I10 ; Polyneuropathy G62.9 and Primary insomnia F51.01 [place] [address], [place] [address] 9546 17 Jan, 2018 Hypertension, benign I10 and Polyneuropathy G62.9 [facility] [address], [place] [address] 1339 Jan, Hypertension, benign I10 and Neuropathy G62.9 [facility] [id number] [place] [address] 34864- 9404 Jan, [facility] [id number] [place] [address] 62025- 6798 Dec, Polyneuropathy G62.9 [facility] [address] [place] [address] [id number] [place] [address] 34195- 2739 Dec, Mood disorder F39 [facility] [id number] [place] [address] 95013- 9926 November, Polyneuropathy G62.9 [facility] [id number] [place] [address] 88340- 1725 November, Medicare annual wellness visit, initial Z00.00 [facility] [id number] [place] [address] 33434- 6077 November, Mood disorder F39 [facility] [id number] [place] [address] 92379- 0645 Oct, Polyneuropathy G62.9 [facility] [address] [address] 2392 Oct, [facility] [address], [place] [address]- 5262 Oct, [facility] [address] [id number] [place] [address] 75591- 8749 Oct, Mood disorder F39 ; Attention to urostomy Z43.6 ; Chronic pain syndrome G89.[address] [facility] [address] [address]- 7307 Sep, Polyneuropathy G62.9 [facility] [id number] [place] [address] 50790- 3354 Sep, [facility] [id number] [place] [address] 22496- 9724 Sep, Polyneuropathy G62.9 [facility] [address] [id number] [place] [address] 87117- 3335 Aug, Polyneuropathy G62.9 [facility] [address] [id number] [place] [address] 32342- 3115 Aug, Malignant neoplasm of colon, unspecified part of colon C18.[address] [facility] [address] [id number] [place] [address] 64444- 9921 Aug, Neuropathy G62.[address] [facility] [address] [id number] [place] [address] 17693- 6684 Jul, Encounter for drug screening Z02.83 [facility] [address] [address] [id number] [place] [address] 47307- 7310 Jul, Polyneuropathy G62.9 [facility] [id number] [place] [address] 92240- 7667 Jul, [facility] [id number] [place] [address] 99453- 7725 Jul, Neuropathy G62.[address] [facility] [id number] [place] [address] 53394- 2402 Jul, [facility] [address] [place] [address] [id number] [place] [address] 06042- 0136 Jul, [facility] [address] [place] [address] 65073- 3773 Jul, [facility] [address] [place] [address] 23707- 6720 Jul, Polyneuropathy G62.9 [facility] [address], [place] [address]- 7977 Jul, [facility] [address], [place] [address]- 3675 Jun, [facility] [address] [place] [address] 77616- 6870 Jun, [facility] [id number] [place] [address] 22513- 9874 Jun, [facility] [address] [place] [id number] [place] [address] Jun, Encounter for dental examination Z01.20 [facility] [id number] [place] [address] 18872- 4132 Jun, Polyneuropathy G62.[address] [facility] [id number] [place] [address] 19356- 4771 Jun, [facility] [id number] [address] May, Dental examination Z01.20 [facility] [address], [place] [address]- 3685 May, Polyneuropathy G62.9 [facility] [address], [place] [address]- 9276 Apr, Polyneuropathy G62.9 [facility] [id number] [place] [address] 97911- 7423 Apr, Polyneuropathy G62.9 [facility] [address], [place] [address] 5509 Apr, Hypertension, benign I10 ; Polyneuropathy G62.[address] [facility] [address], [place] [address]- 4833 Apr, Primary insomnia F51.[address] [facility] [address] [place] [address], [place] [address]- 0511 Apr, Primary insomnia F51.[address] [facility] [address] [place] [id number] [place] [address], [place] [address]- 7969 Mar, Primary insomnia F51.01 [facility] [address] [place] [id number] [place] [address], [place] [address]- 1471 Mar, [facility] [address] [place] [id number] [place] [address], [place] [address]- 6993 Mar, Polyneuropathy G62.9 [facility] [address] [place] [id number] [place] [address] 58348- 8000 Feb, Primary insomnia F51.01 [facility] [address] [place] [address] [id number] [place] [address] 88100- 6456 Feb, [facility] [id number] [place] [address] 77271- 4679 Feb, [facility] [address] [place] [address] [id number] [place] [address] 83095- 6514 Feb, Polyneuropathy G62.9 [facility] [address] [place] [address] [id number] [place] [address] 88068- 2066 Feb, Primary insomnia F51.01 [facility] [address] [place] [address] [id number] [place] [address] 72620- 9264 Jan, [facility] [address] [place] [address] 25694- 6455 Jan, [facility] [address] [place] [address] [address] [place] [address] 90812- 4579 Dec, [facility] [id number] [place] [address] 94017- 7107 Dec, Primary insomnia F51.01 [facility] [address] [address] [id number] [place] [address] 32662- 3729 Dec, Primary insomnia F51.01 [facility] [address], [place] [address]- 6513 Dec, [facility] [address], [place] [address]- 9219 Dec, [facility] [address], [place] [address]- 3206 Dec, [facility] [address], [place] [address]- 5830 Dec, [facility] [id number] [place] [address] 66322- 7239 November, Primary insomnia F51.[address] [facility] [address], [place] [address]- 0811 November, [facility] [id number] [place] [address] 08719- 5487 November, Abdominal pain, left lower quadrant R10.32 [facility] [address], [place] [address]- 9690 November, [facility] [address], [place] [address]- 6795 Oct, [facility] [address], [place] [address]- 4154 Oct, Abdominal pain, left lower quadrant R10.32 ; 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 [facility] [address], [place] [address]- 8746 Oct, [facility] [id number] [address]- 0228 Sep, [facility] [id number] [id number] Sep, [facility] [address] [place] [address] [id number] [place] [address] 26743- 7844 Sep, [facility] [address] [place] [address] [id number] [place] [address] 89756- 0132 Aug, [facility] [address] [place] [id number] [place] [address] 68010- 8041 Aug, [facility] [address] [address] [id number] [place] [address] 42013- 0657 Aug, Abdominal pain, left lower quadrant R10.32 ; Neuropathy G62.9 and Anxiety F41.[address] [facility] [address] [place] [address] Jul, [facility] [address] [place] [id number] [place] [address] 46229- 6179 Jul, [facility] [address] [id number] [place] [address] 30560 -78[address] Jul, [facility] [address] [id number] [place] [address] 24930- 5038 Jul, [facility] [address] [id number] [place] [address] 12980- 4111 Jul, [facility] [address] [id number] [place] [address] 03006- 3247 Jun, [facility] [address] [id number] [place] [address] 34492- 8576 May, [facility] [address] [id number] [place] [address] 89051- 3818 May, [facility] [id number] [place] [address] 98088- 2394 Apr, [facility] [address] [id number] [place] [address] 51677- 4210 Apr, Muscle spasms of both lower extremities M62.838 and Cellulitis, unspecified cellulitis site L03.90 [facility] [address] [place] [address] [id number] [place] [address] 26474- 5052 Apr, [facility] [address], [place] [address]- 2949 23 Mar, 2016 Generalized abdominal pain R10.84 [facility] [address], [place] [address]- 8960 20 Mar, 2016 [facility] [address], [place] [address]- 3821 14 Mar, 2015 [facility] [address] [id number] [place] [address] 92746- 2713 14 Mar, 2016 [facility] [address] [address] [place] [address] 43809- 5356 13 Mar, 2016 [facility] [address] [address] [place] [address] 38577- 2347 12 Mar, 2016 [facility] [address] [place] [address] 90825- 5606 09 Mar, 2016 [facility] [address], [place] [address]- 4807 06 Mar, 2016 [facility] [address] [place] [address] 03993- 0974 Feb, Other specified diseases of anus and rectum K62.89 [facility] [address], [place] [address]- 1032 Feb, [facility] [address], [place] [address]- 7746 Feb, Dizziness R42 [facility] [address], [place] [address]- 6508 Feb, [facility] [address] [id number] [place] [address] 09250- 0839 Jan, Polyneuropathy G62.9 [facility] [address], [place] [address]- 0676 Jan, Other specified diseases of anus and rectum K62.89 [facility] [address] [id number] [place] [address]- 5915 Jan, [facility] [address] [id number] [place] [address]38[address] Jan, [facility] [address] [id number] [place] [address]- 0820 Jan, [facility] [address] [id number] [place] [address]- 8816 Jan, Dizziness R42 [facility] [address] [id number] [place] [address]- 1634 Dec, [facility] [address] [id number] [place] [address]- 1435 Dec, [facility] [address] [id number] [place] [address]- 2312 Dec, [facility] [address] [id number] [place] [address]- 6275 Dec, Dizziness R42 [facility] [address] [id number] [place] [address]- 2078 November, [facility] [address] [id number] [place] [address]- 9624 Oct, [facility] [address] [id number] [place] [address]- 0857 Oct, [facility] [address] [id number] [place] [address]- 7654 Oct, [facility] [address] [id number] [place] [address]- 3670 Oct, [facility] [address] [id number] [place] [address]- 2543 30 Sep, 2015 [facility] [address] [id number] [place] [address]- 3890 Sep, Primary insomnia F51.01 [facility] [id number] [place] [address] 04000- 0183 Sep, Primary insomnia F51.01 [facility] [id number] [place] [address] 01294- 1831 Sep, [facility] [id number] [place] [address] 91845- 1151 Aug, [facility] [address] [address]656- 9351 Aug, [facility] [id number] [place] [address] 06976- 8288 Aug, Primary insomnia F51.01 ; Mood disorder F39 ; Nausea and vomiting, unspecified intactability, vomiting of unspecified type R11.[address] [facility] [id number] [place] [address] 26737- 9007 Aug, [facility] [id number] [place] [address] 13450- 4770 Aug, Folliculitis L73.9 [facility] [id number] [place] [address] 21250- 4448 Aug, [facility] [id number] [place] [address] 68198- 3805 Aug, [facility] [id number] [place] [address] 32731- 3206 Jul, Folliculitis L73.9 [facility] [id number] [place] [address] 96746- 1347 Jul, [facility] [id number] [place] [address] 92304- 1447 Jun, Folliculitis L73.9 [facility] [id number] [place] [address] 37061- 9730 Jun, [facility] [id number] [place] [address] 35260- 3090 May, Polyneuropathy G62.9 [facility] [address], [place] [address]- 4451 May, Other specified diseases of anus and rectum K62.89 [facility] [address], [place] [address]- 6598 May, [facility] [id number] [place] [address] 85432- 4040 May, Primary insomnia F51.01 [facility] [id number] [place] [address] 18401- 6522 May, [facility] [id number] [place] [address] 97281- 8197 May, [facility] [id number] [place] [address] 47551- 9688 Apr, Other specified diseases of anus and rectum K62.89 ; Chronic fatigue R53.82 ; Urinary tract infection, site not specified N39.0 and Enterococcus as the cause of diseases classified elsewhere B95.2 [facility] [address] [place] [address] 34845- 5602 Apr, [facility] [id number] [place] [address] 95286- 1597 Apr, 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 [id number] [place] [address] 62251- 9174 Apr, [facility] [id number] [place] [address] 80049- 7232 Mar, [facility] [address] [place] [address] 40389- 2497 Mar, [facility] [id number] [place] [address]8079- 8768 17 Mar, 2015 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 [id number] [place] [address]54- 9258 Mar, [facility] [id number] [place] [address] 81818- 1858 Feb, [facility] [id number] [place] [address] 83667- 4042 Feb, [facility] [address] [address] 3697 Feb, [facility] [id number] [place] [address] 74697- 9609 Jan, [facility] [address] [address] 7102 Jan, Nausea [address]87.[address] [facility] [address] [address] Jan, [facility] [address] [address] 26[address] Jan, [facility] [address] [address] 3604 16 Jan, 2015 [facility] [address] [id number] Jan, Dental examination V72.2 [facility] [address] [place] [address] 6200 Jan, [facility] [place] [facility] [address] [id number] [place] [address] 8530 Dec, [facility] [place] [facility] [address] [id number] [place] [address]- 9586 Dec, [facility] [place] [facility] [address] [id number] [place] [address]- 4118 Dec, Neuropathy 355.9 [facility] [place] [facility] [address] [id number] [place] [address]- 8400 November, [facility] [place] [facility] [address] [id number] [place] [address]- 4316 November, [facility] [place] [facility] [address] [id number] [place] [address]- 3066 November, [facility] [place] [facility] [address] [id number] [place] [address]- 4323 Oct, [facility] [place] [facility] [address] [id number] [place] [address]- 7641 Oct, [facility] [place] [facility] [address] [id number] [place] [address]- 7393 Sep, [facility] [place] [facility] [address] [id number] [place] [address]- 1783 Sep, [facility] [place] [facility] [address] [id number] [place] [address]- 4753 Sep, [facility] [place] [facility] [address] [id number] [place] [address]- 5533 Sep, [facility] [place] [facility] [address] [id number] [place] [address]- 0031 Sep, [facility] [place] [facility] [address] [id number] [place] [address]- 4071 Sep, [facility] [place] [facility] [address] [id number] [place] [address]- 2956 Sep, [facility] [place] [facility] [address] [id number] [place] [address]- 0333 Sep, [facility] [place] [facility] [address] [id number] [place] [address]- 0399 Aug, 2014 [facility] [place] [facility] [address] [id number] [place] [address]- 4552 Aug, 2014 [facility] [place] [facility] [address] [id number] [place] [address]- 6119 Aug, 2014 [facility] [place] [facility] [address] [id number] [place] [address]- 8620 Aug, 2014 [facility] [place] [facility] [address] [id number] [place] [address]- 1350 Aug, 2014 [facility] [place] [facility] [address] [facility] [id number] [place] [address]- 7734 Aug, 2014 [facility] [place] [facility] [address] [facility] [id number] [place] [address]- 4701 Aug, 2014 [facility] [place] [facility] [address] [facility] [id number] [place] [address]- 9023 Aug, [facility] [place] [facility] [address] [facility] [id number] [place] [address]- 4301 Jul, [facility] [place] [facility] [address] [facility] [id number] [place] [address]- 4988 Jul, [facility] [place] [facility] [address] [facility] [id number] [place] [address]- 8969 Jun, [facility] [place] [facility] [address] [id number] [place] [address] Jun, [facility] [place] [facility] [address] [id number] [place] [address]- 6905 Jun, [facility] [place] [facility] [address] [id number] [place] [place] [address] Jun, [facility] [place] [facility] [address] [facility] [id number], [place] [address] Jun, [facility] [place] [facility] [address] [id number] [place] [address] Jun, [facility] [place] [facility] [address] [id number] [place] [address] Jun, [facility] [place] [facility] [address] [facility] [id number] [place] [address]70 Jun, [facility] [place] [facility] [address] [id number] [place] [address] Jun, [facility] [place] [facility] [address] [id number] [place] [address] 5180 Jun, [facility] [place] [facility] [address] [id number] [place] [address] 4739 Jun, [facility] [place] [facility] [address] [id number] [place] [address] 1898 May, [facility] [place] [facility] [address] [id number] [place] [address] 2730 May, [facility] [place] [facility] [address] [id number] [place] [address]- 1466 May, [facility] [place] [facility] [address] [id number] [place] [address] 5104 May, [facility] [place] [facility] [address] [id number], [place] [address] May, [facility] [place] [facility] [address] [id number], [place] [address] May, [facility] [place] [facility] [address] [id number] [place] [address]39 May, [facility] [place] [facility] [address] [id number] [place] [address] 9027 May, [facility] [place] [facility] [address] [id number] [place] [address] 6156 May, [facility] [place] [facility] [address] [id number] [place] [address] 6138 Apr, [facility] [place] [facility] [address] [id number] [place] [address]- 6386 Apr, [facility] [place] [facility] [address] [id number] [place] [address]- 8727 Apr, [facility] [place] [facility] [address] [id number] [place] [address]- 4700 Apr, [facility] [place] [facility] [address] [id number] [place] [address] 1397 Apr, [facility] [place] [facility] [address] [id number] [place] [address] 2694 Mar, [facility] [place] [facility] [address] [id number] [place] [address] 3718 Mar, [facility] [place] [facility] [address] [id number] [place] [address] 9786 Feb, [facility] [place] [facility] [address] [id number] [place] [address] 1399 Feb, [facility] [place] [facility] [address] [id number] [place] [address]- 1186 Feb, [facility] [place] [facility] [address] [id number] [place] [address]- 9699 Feb, [facility] [place] [facility] [address] [id number] [place] [address]- 2269 Feb, [facility] [place] [facility] [address] [id number] [place] [address] 4455 Feb, [facility] [place] [facility] [address] [id number] [place] [address]- 3986 Jan, [facility] [place] [facility] [address] [id number] [place] [address] 4091 Jan, [facility] [place] [facility] [address] [id number] [place] [address]- 2903 Jan, [facility] [place] [facility] [address] [id number] [place] [address]- 1834 Jan, [facility] [place] [facility] [address] [id number] [place] [address]- 5249 Jan, [facility] [place] [facility] [address] [id number] [place] [address]- 9083 Jan, [facility] [place] [facility] [address] [id number] [place] [address]- 7393 Jan, [facility] [place] [facility] [address] [id number] [place] [address]- 1783 Jan, [facility] [place] [facility] [address] [id number] [place] [address]- 8114 Jan, [facility] [place] [facility] [address] [id number] [place] [address]- 0736 Jan, [facility] [place] [facility] [address] [id number] [place] [address]- 8777 Jan, [facility] [place] [facility] [address] [id number] [place] [address]- 2510 Dec, [facility] [place] [facility] [address] [id number] [place] [address]- 6795 Dec, [facility] [place] [facility] [address] [id number] [place] [address]- 6332 Dec, [facility] [place] [facility] [address] [id number] [place] [address]- 4183 Dec, [facility] [place] [facility] [address] [id number] [place] [address]- 6918 Dec, [facility] [place] [facility] [address] [id number] [place] [address]- 2568 Dec, [facility] [place] [facility] [address] [id number] [place] [address]- 7540 November, [facility] [place] [facility] [address] [id number] [place] [address]- 2100 November, [facility] [address] [id number] [place] [address]- 2314 November, [facility] [place] [facility] [address] [id number] [place] [address]- 8585 November, [facility] [place] [facility] [address] [id number] [place] [address]- 0918 November, [facility] [place] [facility] [address] [id number] [place] [address]- 1822 November, [facility] [place] [facility] [address] [id number] [place] [address]- 7863 Oct, [facility] [place] [facility] [address] [id number] [place] [address] 3379 Oct, [facility] [place] [facility] [address] [id number] [place] [address]- 5857 Oct, [facility] [place] [facility] [address] [id number] [place] [address]- 6901 Oct, [facility] [place] [facility] [address] [id number] [place] [address]- 3028 Sep, [facility] [place] [facility] [address] [id number] [place] [address]- 0983 Sep, [facility] [place] [facility] [address] [id number] [place] [address]- 0896 Sep, [facility] [place] [facility] [address] [id number] [place] [address]- 7014 Sep, [facility] [place] [facility] [address] [id number] [place] [address]- 6013 Sep, [facility] [place] [facility] [address] [id number] [place] [address]- 6348 Aug, [facility] [place] [facility] [address] [id number] [place] [address]- 3867 Aug, [facility] [place] [facility] [address] [id number] [place] [address]- 4227 Aug, [facility] [address] [id number] [place] [address]- 5981 Aug, [facility] [address] [id number] [place] [address]- [address]296 14 Aug, 2013 [facility] [address] [place] [id number] May, [facility] [address] [id number] [place] [address]- 8390 May, [facility] [address] [id number] [place] [address]- 5808 May, [facility] [address] [id number] [place] [address]- 2440 May, [facility] [address] [id number] [place] [address]- 2467 May, [facility] [address] [id number] [place] [address]- 5958 Apr, [facility] [address] [id number] [place] [address]- 2805 Apr, [facility] [address] [id number] [place] [address]- 8117 Apr, [facility] [address] [id number] [place] [address]- 1767 Apr, [facility] [address] [id number] [place] [address]- 2650 Apr, [facility] [address] [id number] [place] [address]- 8114 Apr, [facility] [address] [id number] [place] [address]- 2546 Apr, [facility] [address] [id number] [place] [id number] [address] Mar, [facility] [place] [facility] [address] [id number] [place] [address]- 1419 25 Mar, 2013 [facility] [place] [facility] [address] [id number] [place] [address]- 7330 24 Mar, 2013 [facility] [place] [facility] [address] [id number] [place] [address]- 4393 16 Mar, 2013 [facility] [place] [facility] [address] [id number] [place] [address]- 7612 12 Mar, 2013 [facility] [place] [facility] [address] [id number] [place] [address]- 3132 Mar, [facility] [place] [facility] [address] [id number] [place] [address]- 2046 Feb, [facility] [place] [facility] [address] [id number] [place] [address]- 7579 Feb, [facility] [place] [facility] [address] [id number] [place] [address]- 6263 Feb, [facility] [place] [facility] [address] [id number] [place] [address]- 6826 Feb, [facility] [place] [facility] [address] [id number] [place] [address]- 1685 Feb, [facility] [place] [facility] [address] [id number] [place] [address]- 3981 Feb, [facility] [place] [facility] [address] [id number] [place] [address]- 5521 Jan, [facility] [place] [facility] [address] [id number] [place] [address]- 2128 Dec, [facility] [place] [facility] [address] [id number] [place] [address]- 3916 Dec, [facility] [place] [facility] [address] [id number] [place] [address]- 8395 Dec, [facility] [place] [facility] [address] [id number] [place] [address]- 3394 19 Dec, 2012 [facility] [address] [id number] [place] [address]- 2515 19 Dec, 2012 [facility] [address] [id number] [place] [address]- 1530 18 Dec, 2012 [facility] [address] [id number] [place] [address]- 4431 Dec, [facility] [place] [facility] [address] [id number] [place] [address]- 6098 Dec, [facility] [address] [id number] [place] [address]- 5063 Dec, [facility] [address] [id number] [place] [address]- 8973 November, [facility] [address] [id number] [place] [address]- 5302 November, [facility] [address] [id number] [place] [address]- 2215 Oct, [facility] [address] [id number] [place] [address]- 4107 Sep, [facility] [address] [id number] [place] [address]- 7326 Sep, [facility] [address] [id number] [place] [address]- 7126 15 Sep, 2012 [facility] [place] [facility] [address] [id number] [place] [address]- 4168 Sep, [facility] [place] [facility] [address] [id number] [place] [address]- 8363 Aug, [facility] [place] [facility] [address] [id number] [place] [address] 08 Aug, 2012 [facility] [place] [facility] [address] [id number], [place] [address] Jul, [facility] [address] [facility] [id number][place] [address]646 Jul, [facility] [address] [facility] [id number] [address] Jul, [facility] [address] [facility] [id number], [place] [address]- 4746 22 Sep, [address] [facility] [address] [facility] [id number], [place] [address]- 9896 17 Sep, [address] [facility] [address] [facility] [id number], [place] [address] 10 Sep, 2011 IMMUNIZATIONS No Known Immunizations SOCIAL HISTORY Never Assessed REASON FOR VISIT Refill request PLAN OF CARE VITAL SIGNS MEDICATIONS Medication Instructions Dosage Frequency Start Date End Date Duration Status Oxycodone HCl 30 MG Orally 2 times a day 1 tablet as needed 12h Dec, 28 days Active Percocet 10-325 MG Orally every 4 hrs 1 tablet 4h Dec, 28 days Active RESULTS No Results PROCEDURES [...] AMS-VC 09/21/16 Hospitalization History Large bowel obstruction, Dehydration-[facility] 01/01/17 Hospitalization History [facility]- UTI/Sepsis 01/18/2018
--- OUTSIDE RECORDS SUMMARY | 2018-06-09 17:18 | XMS REPORT ---
Author Author MEGHA NANCY Organization [facility] Address [address] [place] [address] Care Team Providers Care Manager Photography Name Role Phone MEGHA NANCY Unavailable PROBLEMS Type Condition ICD9-CM Code TUV65-TO Code Onset Dates Condition Status SNOMED Code Problem Abdominal pain, left lower quadrant R10.32 Active 008892552 Problem Mood disorder F39 Active 95707756 Problem Hypertension, benign I10 Active 99349190 Problem Chronic pain syndrome G89.4 Active 302449561 Problem Attention to urostomy Z43.6 Active 286252936 Problem Anxiety F41.9 Active 77498244 Problem Neuropathy G62.9 Active 349035575 Problem Malignant neoplasm of colon, unspecified part of colon C18.9 Active 966812582 Problem Polyneuropathy G62.9 Active 79472838 Problem Incontinence of feces, unspecified fecal incontinence type R15.9 Active 33883468 Problem Chronic fatigue, unspecified R53.82 Active 571812897 Problem Hydronephrosis with ureteral stricture, not elsewhere classified N13.1 Active 34625339 Problem Primary insomnia F51.01 Active 417866632 Problem 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 606807335 ALLERGIES No Information ENCOUNTERS Encounter Location Date Diagnosis [facility] [id number] [address] 8[address] Mar, [facility] [address] [address] 1311 Feb, [facility] [address] [place] [address] 12956- 7563 Feb, Hypertension, benign I10 [facility] [id number] [address] 6[address] Feb, Hypertension, benign I10 ; Polyneuropathy G62.9 and Primary insomnia F51.01 [facility] [address] [address] 5[address] 17 Jan, 2018 Hypertension, benign I10 and Polyneuropathy G62.9 [facility] [address] [address] 8783 Jan, Hypertension, benign I10 and Neuropathy G62.9 [facility] [id number] [place] [address] 92282- 0778 Jan, [facility] [address] [place] [address] 94782- 1372 Dec, Polyneuropathy G62.9 [facility] [id number] [place] [address] 67944- 5819 Dec, Mood disorder F39 [facility] [id number] [place] [address] 50693- 5493 November, Polyneuropathy G62.9 [facility] [address] [place] [address] 54078- 9352 November, Medicare annual wellness visit, initial Z00.00 [facility] [id number] [place] [address] 29812- 5816 November, Mood disorder F39 [facility] [address] [place] [address] 68737- 3986 Oct, Polyneuropathy G62.9 [facility] [address] [address] 7675 Oct, [facility] [address] [address] 0498 Oct, [facility] [id number] [place] [address] 97734- 0737 Oct, Mood disorder F39 ; Attention to urostomy Z43.6 ; Chronic pain syndrome G89.4 and Polyneuropathy G62.9 [facility] [id number] [place] [address] 31254- 9196 Sep, Polyneuropathy G62.9 [facility] [id number] [place] [address] 07658- 5437 Sep, [facility] [id number] [place] [address] 43335- 5531 Sep, Polyneuropathy G62.9 [facility] [id number] [place] [address] 99139- 2077 Aug, Polyneuropathy G62.9 [facility] [id number] [place] [address] 84098- 4012 Aug, Malignant neoplasm of colon, unspecified part of colon C18.9 and Polyneuropathy G62.9 [facility] [id number] [place] [address] 54801- 3192 Aug, Neuropathy G62.9 and Polyneuropathy G62.9 [facility] [id number] [place] [address] 67190- 8720 Jul, Encounter for drug screening Z02.83 [facility] [id number] [place] [address] 80933- 7470 Jul, Polyneuropathy G62.9 [facility] [id number] [place] [address] 42556- 4456 Jul, [facility] [id number] [place] [address] 61124- 5845 Jul, Neuropathy G62.9 and Anxiety F41.9 [facility] [id number] [place] [address] 53776- 1448 Jul, [facility] [id number] [place] [address] 61159- 4554 Jul, [facility] [id number] [place] [address] 03881- 7468 Jul, [facility] [id number] [address]- 6299 Jul, Polyneuropathy G62.9 [facility] [address] [place] [address] 22324- 4487 Jul, [facility] [address] [place] [address] 68454- 6631 Jun, [facility] [address] [place] [address] 49200- 6533 Jun, [facility] [address] [place] [address] 38986- 3862 Jun, [facility] [id number] [place] [address] Jun, Encounter for dental examination Z01.20 [facility] [address] [place] [address] 86032- 7088 Jun, Polyneuropathy G62.9 and Anxiety F41.9 [facility] [address] [place] [address] 67974- 6281 Jun, [facility] [id number] [place] [address] May, Dental examination Z01.20 [facility] [address] [place] [address] 08531- 3498 May, Polyneuropathy G62.9 [facility] [address] [place] [address] 70298- 2288 Apr, Polyneuropathy G62.9 [facility] [address] [address] 1716 Apr, Polyneuropathy G62.9 [facility] [address] [place] [address] 71073- 9034 Apr, Hypertension, benign I10 ; Polyneuropathy G62.9 and Anxiety F41.9 [facility] [address] [place] [address] 84564- 0622 Apr, Primary insomnia F51.01 and Polyneuropathy G62.9 [facility] [id number] [place] [address] 42658- 9337 Apr, Primary insomnia F51.01 and Polyneuropathy G62.9 [facility] [id number] [place] [address] 51933- 8972 Mar, Primary insomnia F51.01 [facility] [id number] [place] [address] 17345- 5856 Mar, [facility] [id number] [place] [address] 96757- 0546 Mar, Polyneuropathy G62.9 [facility] [id number] [place] [address] 02150- 9996 Feb, Primary insomnia F51.01 [facility] [id number] [place] [address] 11383- 0270 Feb, [facility] [id number] [place] [address] 72183- 2527 Feb, [facility] [id number] [place] [address] 37137- 6844 Feb, Polyneuropathy G62.9 [facility] [id number] [place] [address] 40021- 6703 Feb, Primary insomnia F51.01 [facility] [id number] [place] [address] 62505- 3732 Jan, [facility] [id number] [place] [address] 10446- 0534 Jan, [facility] [id number] [place] [address] 62232- 3901 Dec, [facility] [id number] [place] [address] 36731- 8736 Dec, Primary insomnia F51.01 [facility] [address] [address]- 0597 Dec, Primary insomnia F51.01 [facility] [id number] [place] [address] 77567- 7460 Dec, [facility] [id number] [place] [address] 47786- 2056 Dec, [facility] [id number] [place] [address] 78471- 3112 Dec, [facility] [id number] [place] [address] 76572- 6314 Dec, [facility] [id number] [place] [address] 36761- 1761 November, Primary insomnia F51.01 and Polyneuropathy G62.9 [facility] [id number] [place] [address] 65219- 3542 November, [facility] [id number] [place] [address] 66034- 3061 November, Abdominal pain, left lower quadrant R10.32 [facility] [id number] [place] [address] 87302- 6186 November, [facility] [id number] [place] [address] 82396- 3105 Oct, [facility] [id number] [place] [address] 28214- 2323 Oct, Abdominal pain, left lower quadrant R10.32 ; 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 and Neuropathy G62.9 [facility] [id number] [place] [address] 50220- 6770 Oct, [facility] [id number] [place] [address] 91713- 2419 Sep, [facility] [id number] [place] [address] [id number] Sep, [facility] [address] [address]- 8660 Sep, [facility] [id number] [place] [address] 98227- 8859 Aug, [facility] [id number] [place] [address] 81507- 7680 Aug, [facility] [id number] [place] [address] 63274- 5411 Aug, Abdominal pain, left lower quadrant R10.32 ; Neuropathy G62.9 and Anxiety F41.9 [facility] [address] [place] [address] Jul, [facility] [id number] [place] [address] 81569- 1368 Jul, [facility] [id number] [place] [address] 65950 -9570 Jul, [facility] [address] [place] [address] 86444- 2933 Jul, [facility] [id number] [place] [address] 79703- 4665 Jul, [facility] [address] [address]- 9943 Jun, [facility] [address] [place] [address] 86802- 3085 May, [facility] [address] [address]- 5804 May, [facility] [address] [place] [address] 29224- 5209 Apr, [facility] [address] [address]- 4258 Apr, Muscle spasms of both lower extremities M62.838 and Cellulitis, unspecified cellulitis site L03.90 [facility] [id number] [address]- 4474 07 Apr, 2016 [facility] [address] [place] [address] 04345- 3174 23 Mar, 2016 Generalized abdominal pain R10.84 [facility] [address] [place] [address] 82870 2540 20 Mar, 2016 [facility] [id number] [place] [address] 98598 2544 14 Mar, 2016 [facility] [address] [place] [address] 29188 2545 14 Mar, 2016 [facility] [id number] [place] [address] 58403- 9008 13 Mar, 2016 [facility] [id number] [place] [address] 79202- 7979 12 Mar, 2016 [facility] [id number] [place] [address] 12110- 5716 09 Mar, 2016 [facility] [address] [place] [address] 89640- 3417 06 Mar, 2016 [facility] [id number] [place] [address] 84276- 7962 Feb, Other specified diseases of anus and rectum K62.89 [facility] [address] [place] [address] 50639- 6287 Feb, [facility] [id number] [place] [address] 28944- 2542 Feb, Dizziness R42 [facility] [address] [place] [address] 48970- 1455 Feb, [facility] [address] [place] [address] 42198- 4385 Jan, Polyneuropathy G62.9 [facility] [address] [place] [address] 77729- 9191 Jan, Other specified diseases of anus and rectum K62.89 [facility] [address] [facility] [id number] [place] [address]- 0546 Jan, [facility] [address] [facility] [id number] [place] [address] 2546 Jan, [facility] [address] [facility] [id number] [place] [address]- 6964 Jan, [facility] [address] [facility] [id number] [place] [address] 254 Jan, Dizziness R42 [facility] [address] [facility] [id number] [place] [address]- 9635 Dec, [facility] [address] [facility] [id number] [place] [address]- 5100 Dec, [facility] [address] [facility] [id number] [place] [address]- 9306 Dec, [facility] [address] [facility] [id number] [place] [address]- 2239 Dec, Dizziness R42 [facility] [address] [facility] [id number] [place] [address]- 1266 November, [facility] [address] [facility] [id number] [place] [address]- 8982 Oct, [facility] [address] [facility] [id number] [place] [address]- 3460 Oct, [facility] [address] [facility] [id number] [place] [address] 2543 Oct, [facility] [address] [facility] [id number] [place] [address]- 7500 Oct, [facility] [address] [facility] [id number] [place] [address]- 8509 Sep, [facility] [address] [facility] [id number] [place] [address]- 8596 Sep, Primary insomnia F51.01 [facility] [place] [facility] [address] [address]- 8207 Sep, Primary insomnia F51.01 [facility] [address] [place] [address] 57484- 5008 Sep, [facility] [address] [place] [address] 06263- 5355 Aug, [facility] [id number] [place] [address] 42227- 3993 Aug, [facility] [address] [place] [address] 93960- 8173 Aug, Primary insomnia F51.01 ; Mood disorder F39 ; Nausea and vomiting, unspecified intactability, vomiting of unspecified type R11.2 and Diarrhea R19.7 [facility] [address] [place] [address] 87249- 6809 Aug, [facility] [address] [place] [address] 11130- 6182 Aug, Folliculitis L73.9 [facility] [address] [place] [address] 53619- 8757 Aug, [facility] [address] [address]- 9800 Aug, [facility] [address] [place] [address] 04859- 4774 Jul, Folliculitis L73.9 [facility] [address] [address]- 3264 Jul, [facility] [address] [place] [address] 04623- 8456 Jun, Folliculitis L73.9 [facility] [address] [address]- 6267 Jun, [facility] [id number] [address]- 3617 May, Polyneuropathy G62.9 [facility] [address] [place] [address] 32089- 6065 May, Other specified diseases of anus and rectum K62.89 [facility] [address] [address]- 3440 May, [facility] [id number] [place] [address] 37085- 1595 May, Primary insomnia F51.01 [facility] [id number] [place] [address] 01199- 2911 May, [facility] [id number] [place] [address] 25293- 9635 May, [facility] [id number] [place] [address] 53537- 7351 Apr, Other specified diseases of anus and rectum K62.89 ; Chronic fatigue R53.82 ; Urinary tract infection, site not specified N39.0 and Enterococcus as the cause of diseases classified elsewhere B95.2 [facility] [address] [address]- 8456 Apr, [facility] [address] [address]- 3417 Apr, [facility] [id number] [address]- 5485 Apr, 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 [address] [address]- 6876 12 Mar, 2015 [facility] [id number] [place] [address] 61523- 7089 11 Mar, 2015 [facility] [address] [address]- 7040 11 Mar, 2015 [facility] [id number] [place] [address] 34211- 5179 10 Mar, 2015 [facility] [address] [place] [address] 45191- 2641 28 Feb, 2015 [facility] [id number] [place] [address] 34300- 6067 Feb, [facility] [address] [address]- 6769 Feb, [facility] [address] [address]- 5285 30 Jan, 2015 [facility] [address] [address]- 1096 27 Jan, 2015 Nausea 787.02 and Neuropathy 355.9 [facility] [address] [address]- 1503 Jan, [facility] [address] [address]- 0236 Jan, [facility] [address] [address]- 5795 16 Jan, 2015 [facility] [address] [id number] [address] 10 Jan, 2015 Dental examination V72.2 [facility] [address] [place] [address]- 9995 Jan, [facility] [place] [facility] [address] [id number] [place] [address]- 3412 Dec, [facility] [place] [facility] [address] [id number] [place] [address]- 7586 Dec, [facility] [place] [facility] [address] [facility] [id number] [place] [address] Dec, Neuropathy 355.9 [facility] [place] [facility] [address] [id number] [place] [address] November, [facility] [place] [facility] [address] [id number] [place] [address] November, [facility] [place] [facility] [address] [facility] [id number] [place] [address] November, [facility] [place] [facility] [address] [facility] [id number] [place] [address] Oct, [facility] [place] [facility] [address] [id number] [place] [address] Oct, [facility] [place] [facility] [address] [facility] [id number] [place] [address] Sep, [facility] [place] [facility] [address] [facility] [id number] [place] [address] Sep, [facility] [place] [facility] [address] [id number] [place] [address] Sep, [facility] [place] [facility] [address] [id number] [place] [address] Sep, [facility] [place] [facility] [address] [id number] [place] [address] Sep, [facility] [place] [facility] [address] [facility] [id number] [place] [address] Sep, [facility] [place] [facility] [address] [facility] [id number] [place] [address] Sep, [facility] [place] [facility] [address] [id number] [place] [address] Sep, [facility] [place] [facility] [address] [id number] [place] [address] Aug, 2014 [facility] [place] [facility] [address] [id number] [place] [address] Aug, 2014 [facility] [place] [facility] [address] [id number] [place] [address] Aug, 2014 [facility] [place] [facility] [address] [id number] [place] [address] Aug, 2014 [facility] [place] [facility] [address] [id number] [place] [address] Aug, 2014 [facility] [place] [facility] [address] [id number] [place] [address] Aug, 2014 [facility] [place] [facility] [address] [id number] [place] [address] Aug, 2014 [facility] [place] [facility] [address] [id number] [place] [address] Aug, [facility] [place] [facility] [address] [id number] [place] [address] Jul, [facility] [place] [facility] [address] [id number] [place] [address] Jul, [facility] [place] [facility] [address] [id number] [place] [address] Jun, [facility] [place] [facility] [address] [id number] [place] [address] Jun, [facility] [place] [facility] [address] [id number] [place] [address] Jun, [facility] [place] [facility] [address] [id number] [place] [address] Jun, [facility] [place] [facility] [address] [id number] [place] [address] Jun, [facility] [place] [facility] [address] [id number] [place] [address] Jun, [facility] [place] [facility] [address] [id number] [place] [address] Jun, [facility] [place] [facility] [address] [id number] [place] [address] Jun, [facility] [place] [facility] [address] [id number] [place] [address] Jun, [facility] [place] [facility] [address] [id number] [place] [address] Jun, [facility] [place] [facility] [address] [id number] [place] [address] Jun, [facility] [place] [facility] [address] [id number] [place] [address] May, [facility] [place] [facility] [address] [id number] [place] [address] May, [facility] [place] [facility] [address] [id number] [place] [address] May, [facility] [place] [facility] [address] [id number] [place] [address] May, [facility] [place] [facility] [address] [id number] [place] [address] May, [facility] [place] [facility] [address] [id number] [place] [address] May, [facility] [place] [facility] [address] [id number] [place] [address] May, [facility] [place] [facility] [address] [id number] [place] [address] May, [facility] [place] [facility] [address] [id number] [place] [address] May, [facility] [place] [facility] [address] [id number] [place] [address] Apr, [facility] [place] [facility] [address] [id number] [place] [address] Apr, [facility] [place] [facility] [address] [id number] [place] [address]79 Apr, [facility] [place] [facility] [address] [id number] [place] [address] Apr, [facility] [place] [facility] [address] [id number] [place] [address] Apr, [facility] [place] [facility] [address] [id number] [place] [address] Mar, [facility] [place] [facility] [address] [id number] [place] [address] Mar, [facility] [place] [facility] [address] [id number] [place] [address]60 Feb, [facility] [place] [facility] [address] [id number] [place] [address] Feb, [facility] [place] [facility] [address] [id number] [place] [address] Feb, [facility] [place] [facility] [address] [id number] [place] [address] 289[address] Feb, [facility] [place] [facility] [address] [id number] [place] [address]268 Feb, [facility] [place] [facility] [address] [id number] [place] [address] 70[address] Feb, [facility] [place] [facility] [address] [id number] [place] [address] 4698 Jan, [facility] [place] [facility] [address] [id number] [place] [address] 270[address] Jan, [facility] [place] [facility] [address] [id number] [address] Jan, [facility] [place] [facility] [address] [id number] [place] [address] Jan, [facility] [place] [facility] [address] [id number] [place] [address] Jan, [facility] [place] [facility] [address] [id number] [place] [address] 4028 Jan, [facility] [place] [facility] [address] [id number] [place] [address] 30[address] Jan, [facility] [place] [facility] [address] [id number] [place] [address] Jan, [facility] [place] [facility] [address] [id number] [place] [address] Jan, [facility] [place] [facility] [address] [id number] [place] [address] 59[address] Jan, [facility] [place] [facility] [address] [id number] [place] [address] Jan, [facility] [place] [facility] [address] [id number] [place] [address] 58[address] Dec, [facility] [place] [facility] [address] [id number] [place] [address] 1372 Dec, [facility] [place] [facility] [address] [id number] [place] [address]58 Dec, [facility] [place] [facility] [address] [id number] [place] [address] 5624 Dec, [facility] [place] [facility] [address] [id number] [place] [address]- 1717 Dec, [facility] [place] [facility] [address] [id number] [place] [address]- 6776 Dec, [facility] [place] [facility] [address] [id number] [place] [address] 2667 November, [facility] [place] [facility] [address] [id number] [place] [address] 9346 November, [facility] [place] [facility] [address] [id number] [place] [address] November, [facility] [place] [facility] [address] [id number] [place] [address] 4006 November, [facility] [place] [facility] [address] [id number] [place] [address] 1304 November, [facility] [place] [facility] [address] [id number] [place] [address] 9850 November, [facility] [place] [facility] [address] [id number] [place] [address] 1050 Oct, [facility] [place] [facility] [address] [id number] [place] [address] 7437 Oct, [facility] [place] [facility] [address] [id number] [place] [address] 6742 Oct, [facility] [place] [facility] [address] [id number] [place] [address]- 1232 Oct, [facility] [place] [facility] [address] [id number] [place] [address] 3073 Sep, [facility] [place] [facility] [address] [id number] [place] [address]- [address] 17 Sep, 2013 [facility] [place] [facility] [address] [id number] [place] [address]- 6115 Sep, [facility] [place] [facility] [address] [id number] [place] [address]- 1183 Sep, [facility] [place] [facility] [address] [id number] [place] [address]- 8883 Sep, [facility] [place] [facility] [address] [id number] [place] [address] 3379 Aug, [facility] [place] [facility] [address] [id number] [place] [address] 3214 Aug, [facility] [address] [id number] [place] [address] 1465 Aug, [facility] [address] [id number] [place] [address] 0838 Aug, [facility] [address] [id number] [place] [address] Aug, [facility] [address] [place] [id number] May, [facility] [address] [id number] [place] [address] May, [facility] [address] [id number] [place] [address] 5690 May, [facility] [address] [id number] [place] [address]- 4789 May, [facility] [address] [id number] [address] May, [facility] [address] [id number] [place] [address]- 3668 Apr, [facility] [address] [id number] [place] [address] 6[address] Apr, [facility] [address] [id number] [place] [address] 8[address] Apr, [facility] [address] [id number] [place] [address] 2698 Apr, [facility] [address] [id number] [place] [address]- 9917 Apr, [facility] [address] [id number] [place] [address] Apr, [facility] [address] [id number] [place] [address] Apr, [facility] [address] [id number] [place] [address]- 6769 28 Mar, 2012 [facility] [place] [facility] [address] [id number] [place] [address]- 9176 25 Mar, 2013 [facility] [place] [facility] [address] [id number] [place] [address]- 3006 24 Mar, 2013 [facility] [place] [facility] [address] [id number] [place] [address]- 2703 16 Mar, 2013 [facility] [place] [facility] [address] [id number] [place] [address]- 0795 12 Mar, 2013 [facility] [place] [facility] [address] [id number] [place] [address]- 2149 06 Mar, 2013 [facility] [place] [facility] [address] [id number] [place] [address]- 9780 Feb, [facility] [place] [facility] [address] [id number] [place] [address]- 3713 Feb, [facility] [place] [facility] [address] [id number] [place] [address]- 7010 Feb, [facility] [place] [facility] [address] [id number] [place] [address]- 9542 Feb, [facility] [place] [facility] [address] [id number] [place] [address]- 5020 Feb, [facility] [place] [facility] [address] [id number] [place] [address]- 0607 Feb, [facility] [place] [facility] [address] [id number] [place] [address]- 1095 Jan, [facility] [place] [facility] [address] [id number] [place] [address]- 2313 Dec, [facility] [place] [facility] [address] [id number] [place] [address]- 6569 Dec, [facility] [place] [facility] [address] [id number] [place] [address] Dec, [facility] [place] [facility] [address] [id number] [place] [address]- 7861 Dec, [facility] [address] [id number] [place] [address]- 6763 Dec, [facility] [place] [facility] [address] [id number] [place] [address]- 5626 Dec, [facility] [place] [facility] [address] [id number] [place] [address]- 6165 Dec, [facility] [place] [facility] [address] [id number] [place] [address]- 4126 Dec, [facility] [place] [facility] [address] [id number] [place] [address]- 3311 Dec, [facility] [place] [facility] [address] [id number] [place] [address]- 2570 November, [facility] [place] [facility] [address] [id number] [place] [address]- 0842 November, [facility] [place] [facility] [address] [id number] [place] [address]- 6731 Oct, [facility] [place] [facility] [address] [id number] [place] [address]- 9691 Sep, [facility] [place] [facility] [address] [id number] [place] [address]- 6479 Sep, [facility] [place] [facility] [address] [id number] [place] [address]- 1819 15 Sep, 2012 [facility] [place] [facility] [address] [id number] [place] [address]- 0209 Sep, [facility] [place] [facility] [address] [id number] [place] [address]- 2055 Aug, [facility] [place] [facility] [address] [id number] [place] [address]- 4790 08 Aug, 2012 [facility] [place] [facility] [address] [id number] [address]- [address] Jul, [facility] [address] [facility] [id number] [place] [address] Jul, [facility] [address] [facility] [id number] [place] [address] Jul, [facility] [address] [facility] [id number] [place] [address]- 7976 Sep, [facility] [address] [facility] [id number] [place] [address] 3266 Sep, [facility] [address] [facility] [id number] [place] [address] Sep, IMMUNIZATIONS No Known Immunizations SOCIAL HISTORY Never Assessed REASON FOR VISIT TCM Phone Call/Med [facility] PLAN OF CARE VITAL SIGNS MEDICATIONS Medication Instructions Dosage Frequency Start Date End Date Duration Status Cephalexin 500 mg Orally 3 times a day 1 capsule 8h Jan, Jan, Active Zofran ODT 8 MG Orally every 8 hrs prn nausea/vomiting- 2nd line 1 tablet on the tongue and allow to dissolve Jan, Jan, Active Promethazine HCl 25 MG Orally every 6 hrs prn nausea/vomiting- use first before Zofran 1 tablet as needed Jan, Jan, Active Incontinence Brief Large 1 as directed Aug, Not-Taking Acyclovir 5 % Externally Five times a day 1 application to affected area Dec, Not-Taking Zoloft 100 mg Orally Once a day 1 tablet 24h 30 Not-Taking Wheelchair 1 as directed Dec, Not-Taking Percocet 10-325 MG Orally 3 times a day prn 1 tablet Dec, Active Oxycodone HCl 30 MG Orally 2 times a day 1 tablet as needed 12h Dec, 28 days Active Lyrica 150 MG Orally [...] Large bowel obstruction, Dehydration-[facility] 01/01/17 Hospitalization History [facility]- UTI/Sepsis 01/18/2018
--- OUTSIDE RECORDS SUMMARY | 2018-06-09 17:19 | XMS REPORT ---
Author Author LINDA BENTLEY Organization [facility] Address [address] [place] [address] Care Team Providers Care Liner Assembler Name Role Phone LINDA BENTLEY Unavailable PROBLEMS Type Condition ICD9-CM Code RNS85-NC Code Onset Dates Condition Status SNOMED Code Problem Abdominal pain, left lower quadrant R10.32 Active 453966142 Problem Mood disorder F39 Active 86095315 Problem Hypertension, benign I10 Active 06743141 Problem Chronic pain syndrome G89.4 Active 012652056 Problem Attention to urostomy Z43.6 Active 048192919 Problem Anxiety F41.9 Active 04621027 Problem Neuropathy G62.9 Active 367758224 Problem Malignant neoplasm of colon, unspecified part of colon C18.9 Active 602508852 Problem Polyneuropathy G62.9 Active 92018454 Problem Incontinence of feces, unspecified fecal incontinence type R15.9 Active 44979570 Problem Chronic fatigue, unspecified R53.82 Active 363097413 Problem Hydronephrosis with ureteral stricture, not elsewhere classified N13.1 Active 49032808 Problem Primary insomnia F51.01 Active 496216827 Problem 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9 [facility] [id number] [address] 1250 Jan, Hypertension, benign I10 and Neuropathy G62.9 [facility] [address] [address] 7803 Jan, [facility] [id number] [place] [address] 06542- 1464 Dec, Polyneuropathy G62.9 [facility] [address] [address] 8516 Dec, Mood disorder F39 [facility] [address] [place] [id number] [place] [address] 45969- 1332 November, Polyneuropathy G62.9 [facility] [address], [place] [address] 6207 November, Medicare annual wellness visit, initial Z00.00 [facility] [address] [address]- 6044 November, Mood disorder F39 [facility] [address] [place] [id number] [place] [address] 70734- 2580 Oct, Polyneuropathy G62.9 [facility] [address], [place] [address]- 5816 Oct, [facility] [id number] [place] [address] 95545- 5232 Oct, [facility] [id number] [place] [address] 44011- 0104 Oct, Mood disorder F39 ; Attention to urostomy Z43.6 ; Chronic pain syndrome G89.4 and Polyneuropathy G62.9 [facility] [address], [place] [address]- 1405 Sep, Polyneuropathy G62.9 [facility] [address] [place] [id number] [place] [address] 10049- 3389 Sep, [facility] [id number] [place] [address] 42273- 4377 Sep, Polyneuropathy G62.9 [facility] [id number] [place] [address] 36122- 0767 Aug, Polyneuropathy G62.9 [facility] [address] [place] [id number] [place] [address] 44969- 6195 Aug, Malignant neoplasm of colon, unspecified part of colon C18.9 and Polyneuropathy G62.9 [facility] [address] [place] [id number] [place] [address] 23428- 0147 Aug, Neuropathy G62.9 and Polyneuropathy G62.9 [facility] [address] [place] [address] [id number] [place] [address] 92725- 5464 Jul, Encounter for drug screening Z02.83 [facility] [address] [place] [address] [id number] [place] [address] 28811- 1813 Jul, Polyneuropathy G62.9 [facility] [address] [place] [address] [id number] [place] [address] 70429- 7135 Jul, [facility] [address] [address] [id number] [place] [address] 82687- 6418 Jul, Neuropathy G62.9 and Anxiety F41.9 [facility] [address] [place] [address] [id number] [place] [address] 65817- 2239 Jul, [facility] [id number] [place] [address] 19092- 9422 Jul, [facility] [address] [place] [address] [id number] [place] [address] 45400- 0937 Jul, [facility] [id number] [place] [address] 45568- 8825 Jul, Polyneuropathy G62.9 [facility] [address] [place] [id number] [place] [address] 42205- 7667 Jul, [facility] [address], [place] [address]- 9933 Jun, [facility] [address] [place] [id number] [place] [address] 69879- 8227 Jun, [facility] [address] [place] [id number] [place] [address] 36391- 2927 Jun, [facility] [address] [place] [id number] [place] [address] Jun, Encounter for dental examination Z01.20 [facility] [address] [place] [id number] [place] [address] 97705- 0230 Jun, Polyneuropathy G62.9 and Anxiety F41.9 [facility] [address] [place] [id number] [place] [address] 38769- 9761 Jun, [facility] [address] [place] [id number] [place] [address] May, Dental examination Z01.20 [facility] [address] [place] [id number] [place] [address] 01395- 5026 May, Polyneuropathy G62.9 [facility] [address] [place] [id number] [place] [address] 54058- 3689 Apr, Polyneuropathy G62.9 [facility] [address] [place] [address] [id number] [place] [address] 59735- 4262 Apr, Polyneuropathy G62.9 [facility] [address] [place] [address] [id number] [place] [address] 92578- 2607 Apr, Hypertension, benign I10 ; Polyneuropathy G62.9 and Anxiety F41.9 [facility] [address] [place] [address] [id number] [place] [address] 35299- 5336 Apr, Primary insomnia F51.01 and Polyneuropathy G62.9 [facility] [address] [place] [id number] [place] [address] 64290- 6916 Apr, Primary insomnia F51.01 and Polyneuropathy G62.9 [facility] [address] [place] [address]- 0525 Mar, Primary insomnia F51.01 [facility] [address] [place] [id number] [place] [address]- 7026 Mar, [facility] [address] [place] [id number] [place] [address] 19835- 6746 Mar, Polyneuropathy G62.9 [facility] [address] [place] [id number] [place] [address]- 0212 Feb, Primary insomnia F51.01 [facility] [address] [place] [address]- 8620 Feb, [facility] [id number] [place] [address] 69268- 7801 Feb, [facility] [address], [place] [address]- 6584 Feb, Polyneuropathy G62.9 [facility] [id number] [place] [address] 01372- 8769 Feb, Primary insomnia F51.01 [facility] [address], [place] [address]- 2454 Jan, [facility] [address], [place] [address]- 6257 Jan, [facility] [address] [place] [id number] [address]- 6950 Dec, [facility] [id number] [place] [address] 13571- 7011 Dec, Primary insomnia F51.01 [facility] [address] [place] [address]- 2176 Dec, Primary insomnia F51.01 [facility] [address] [place] [address] [id number] [address]- 7812 Dec, [facility] [address], [place] [address]- 8564 Dec, [facility] [id number], [place] [address]- 9262 Dec, [facility] [id number] [place] [address] 04395- 3056 Dec, [facility] [address] [place] [id number] [place] [address] 06896- 3470 November, Primary insomnia F51.01 and Polyneuropathy G62.9 [facility] [address] [place] [id number] [place] [address] 29992- 2593 November, [facility] [address] [place] [id number] [place] [address] 54375- 6093 November, Abdominal pain, left lower quadrant R10.32 [facility] [id number], [place] [address]- 8906 November, [facility] [id number] [place] [address] 63682- 3803 Oct, [facility] [id number], [place] [address]- 1321 Oct, Abdominal pain, left lower quadrant R10.32 ; 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 and Neuropathy G62.9 [facility] [address], [place] [address]- 0357 Oct, [facility] [id number], [place] [address]- 7795 Sep, [facility] [address] [place] [id number] [place] [address] [id number] Sep, [facility] [id number] [address] 0964 Sep, [facility] [address] [id number] [address]- 8656 Aug, [facility] [address] [place] [address] [id number] [place] [address] 82094- 2317 Aug, [facility] [address] [place] [id number] [place] [address] 99051- 8517 Aug, Abdominal pain, left lower quadrant R10.32 ; Neuropathy G62.9 and Anxiety F41.9 [facility] [address] [place] [address] Jul, [facility] [address] [place] [id number] [place] [address] 52480- 5016 Jul, [facility] [address] [place] [address] [id number] [place] [address] 56887 -9686 Jul, [facility] [address] [place] [id number] [place] [address] 27612- 5832 Jul, [facility] [address] [place] [id number] [place] [address] 65609- 8103 Jul, [facility] [address] [place] [id number] [place] [address] 11169- 5536 Jun, [facility] [address] [place] [id number] [place] [address] 15341- 2248 May, [facility] [address], [place] [address]- 7423 May, [facility] [address] [place] [id number] [place] [address] 41683- 6035 Apr, [facility] [id number] [place] [address] 73830- 4675 Apr, Muscle spasms of both lower extremities M62.838 and Cellulitis, unspecified cellulitis site L03.90 [facility] [address], [place] [address]- 2974 Apr, [facility] [address] [place] [id number] [place] [address] 95403- 9296 23 Mar, 2016 Generalized abdominal pain R10.84 [facility] [address], [place] [address]- 5592 20 Mar, 2015 [facility] [address] [place] [address] [id number] [place] [address] 45518- 9426 14 Mar, 2016 [facility] [address] [place] [address] [id number] [place] [address] 95522- 6321 14 Mar, 2015 [facility] [address] [place] [address] [id number] [place] [address] 48720- 5304 13 Mar, 2015 [facility] [address] [place] [address] [id number] [place] [address] 81901- 6205 12 Mar, 2016 [facility] [address] [place] [address] [id number] [place] [address] 49367- 9728 09 Mar, 2016 [facility] [address] [place] [address] [id number] [place] [address] 86255- 8488 06 Mar, 2016 [facility] [address] [place] [address] [id number] [place] [address] 90666- 6870 Feb, Other specified diseases of anus and rectum K62.89 [facility] [address] [place] [address] [id number] [place] [address] 53672- 8826 Feb, [facility] [id number] [place] [address] 71529- 7990 Feb, Dizziness R42 [facility] [id number] [place] [address] 17977- 5946 Feb, [facility] [id number] [place] [address] 29189- 4345 Jan, Polyneuropathy G62.9 [facility] [address] [place] [address] 97953- 1102 Jan, Other specified diseases of anus and rectum K62.89 [facility] [id number] [place] [address] 38013- 9676 Jan, [facility] [address] [id number] [place] [address] -5933 16 Jan, 2016 [facility] [address] [id number] [place] [address]- 8702 Jan, [facility] [address] [id number] [place] [address]- 4584 Jan, Dizziness R42 [facility] [address] [id number] [place] [address]- 6637 Dec, [facility] [address] [id number] [place] [address]- 6268 Dec, [facility] [address] [id number] [place] [address]- 2863 Dec, [facility] [address] [facility] [id number] [place] [address]- 8323 Dec, Dizziness R42 [facility] [address] [facility] [id number] [place] [address]- 3272 November, [facility] [address] [id number] [place] [address]- 5466 Oct, [facility] [address] [facility] [id number] [place] [address]- 8197 Oct, [facility] [address] [id number] [place] [address]- 2539 Oct, [facility] [address] [facility] [id number] [place] [address]- 4972 Oct, [facility] [address] [facility] [id number] [place] [address]- 7079 Sep, [facility] [address] [facility] [id number] [place] [address]- 1447 Sep, Primary insomnia F51.01 [facility] [address] [facility] [id number] [place] [address]- 2073 Sep, Primary insomnia F51.01 [facility] [address] [id number] [place] [address] 00798- 9780 Sep, [facility] [id number] [place] [address] 91220- 9628 Aug, [facility] [id number] [place] [address] 71275- 0275 Aug, [facility] [address] 46148- 3090 Aug, Primary insomnia F51.01 ; Mood disorder F39 ; Nausea and vomiting, unspecified intactability, vomiting of unspecified type R11.2 and Diarrhea R19.7 [facility] [id number] [place] [address] 73138- 7244 Aug, [facility] [id number] [place] [address] 42273- 5088 Aug, Folliculitis L73.9 [facility] [id number] [place] [address] 78528- 9811 Aug, [facility] [id number] [place] [address] 31473- 8405 Aug, [facility] [id number] [place] [address] 57682- 7474 Jul, Folliculitis L73.9 [facility] [id number] [place] [address] 84090- 3745 Jul, [facility] [id number] [place] [address] 76175- 2320 Jun, Folliculitis L73.9 [facility] [id number] [place] [address] 14076- 0641 Jun, [facility] [id number] [place] [address] 54471- 6045 May, Polyneuropathy G62.9 [facility] [id number] [place] [address] [place] [address]- 1303 May, Other specified diseases of anus and rectum K62.89 [facility] [address], [place] [address]- 6539 May, [facility] [id number] [place] [address] 83713- 8495 May, Primary insomnia F51.01 [facility] [id number] [place] [address] 58497- 5057 May, [facility] [id number] [place] [address] 22267- 0991 May, [facility] [id number] [place] [address] 42994- 2753 Apr, Other specified diseases of anus and rectum K62.89 ; Chronic fatigue R53.82 ; Urinary tract infection, site not specified N39.0 and Enterococcus as the cause of diseases classified elsewhere B95.2 [facility] [address] [address]- 8186 16 Apr, 2015 [facility] [id number] [place] [address] 05280- 5875 Apr, [facility] [address], [place] [address]- 6736 Apr, 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 [facility] [address], [place] [address]- 4304 05 Apr, 2015 [facility] [address], [place] [address]- 4229 Mar, [facility] [id number], [place] [address]- 6597 23 Mar, 2015 [facility] [address], [place] [address]- 6411 17 Mar, 2015 [facility] [id number] [place] [address] 42613- 5399 Mar, 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 [facility] [address], [place] [address]- 0072 12 Mar, 2015 [facility] [id number], [place] [address]- 6575 Mar, [facility] [address], [place] [address]- 8061 Mar, [facility] [id number] [place] [address] 29891- 6975 Mar, [facility] [id number] [place] [address] 34909- 1621 Feb, [facility] [id number] [place] [address] 50764- 4795 Feb, [facility] [id number] [place] [address]- 2266 Feb, [facility] [id number] [address] Jan, [facility] [id number] [place] [address]- 8001 Jan, Nausea 787.02 and Neuropathy 355.9 [facility] [id number] [address] Jan, [facility] [id number] [address] Jan, [facility] [id number] [address] Jan, [facility] [id number] [id number] Jan, Dental examination V72.2 [facility] [id number] [address] Jan, [facility] [id number] [address] Dec, [facility] [place] [facility] [address] [id number] [place] [address] Dec, [facility] [place] [facility] [address] [id number] [place] [address] Dec, Neuropathy 355.9 [facility] [place] [facility] [address] [id number] [place] [address]16 November, [facility] [place] [facility] [address] [id number] [place] [address] 16[address] November, [facility] [place] [facility] [address] [id number] [place] [address]11 November, [facility] [place] [facility] [address] [id number] [place] [address] 3748 Oct, [facility] [place] [facility] [address] [id number] [place] [address]183 Oct, [facility] [place] [facility] [address] [id number] [place] [address] 6[address] Sep, [facility] [place] [facility] [address] [id number] [place] [address]- 8876 Sep, [facility] [place] [facility] [address] [id number] [place] [address] 4559 Sep, [facility] [place] [facility] [address] [id number] [place] [address]- 4171 Sep, [facility] [place] [facility] [address] [id number] [place] [address]- 8650 Sep, [facility] [place] [facility] [address] [id number] [place] [address]- 2497 Sep, [facility] [place] [facility] [address] [id number] [place] [address]- 2522 Sep, [facility] [place] [facility] [address] [id number] [place] [address]- 9100 Sep, [facility] [place] [facility] [address] [id number] [place] [address]- [address]85 Aug, 2014 [facility] [place] [facility] [address] [id number] [place] [address]- 7266 Aug, 2014 [facility] [place] [facility] [address] [id number] [place] [address]- 6086 Aug, 2014 [facility] [place] [facility] [address] [id number] [place] [address]- 6566 Aug, 2014 [facility] [place] [facility] [address] [id number] [place] [address]- 1395 Aug, 2014 [facility] [place] [facility] [address] [id number] [place] [address]- 4513 Aug, 2014 [facility] [place] [facility] [address] [facility] [id number] [place] [address]- 1044 Aug, 2014 [facility] [place] [facility] [address] [facility] [id number] [place] [address]- 6415 Aug, 2014 [facility] [place] [facility] [address] [facility] [id number] [place] [address]- [address] Jul, [facility] [place] [facility] [address] [facility] [id number] [place] [address]- 7821 Jul, [facility] [place] [facility] [address] [facility] [id number] [place] [address]- 8640 Jun, [facility] [place] [facility] [address] [id number] [place] [address]- 4202 Jun, [facility] [place] [facility] [address] [id number] [place] [address]- 8489 Jun, [facility] [place] [facility] [address] [id number] [place] [address]- 254 Jun, [facility] [place] [facility] [address] [id number] [place] [address]- 3334 Jun, [facility] [place] [facility] [address] [id number] [address] Jun, [facility] [place] [facility] [address] [id number] [place] [address]- 2396 Jun, [facility] [place] [facility] [address] [id number] [place] [address] Jun, [facility] [place] [facility] [address] [facility] [id number] [place] [address] Jun, [facility] [place] [facility] [address] [id number] [place] [address] Jun, [facility] [place] [facility] [address] [id number] [place] [address] Jun, [facility] [place] [facility] [address] [id number] [place] [address] 17[address] May, [facility] [place] [facility] [address] [id number] [place] [address] May, [facility] [place] [facility] [address] [id number] [place] [address] 29[address] May, [facility] [place] [facility] [address] [id number] [place] [address] 8688 May, [facility] [place] [facility] [address] [id number] [place] [address] May, [facility] [place] [facility] [address] [id number], [place] [address] May, [facility] [place] [facility] [address] [id number], [place] [address] May, [facility] [place] [facility] [address] [id number] [place] [address] May, [facility] [place] [facility] [address] [id number] [place] [address] 4971 May, [facility] [place] [facility] [address] [id number] [place] [address] 9485 Apr, [facility] [place] [facility] [address] [id number] [place] [address] 1807 Apr, [facility] [place] [facility] [address] [id number] [place] [address] 9210 Apr, [facility] [place] [facility] [address] [id number] [place] [address]- [address]276 Apr, [facility] [place] [facility] [address] [id number] [place] [address] 6066 Apr, [facility] [place] [facility] [address] [id number] [place] [address] 1979 Mar, [facility] [place] [facility] [address] [id number] [place] [address] Mar, [facility] [place] [facility] [address] [id number] [place] [address] 31[address] Feb, [facility] [place] [facility] [address] [id number] [place] [address]- 111[address] Feb, [facility] [place] [facility] [address] [id number] [place] [address]- 57[address] Feb, [facility] [place] [facility] [address] [id number] [place] [address] 5953 Feb, [facility] [place] [facility] [address] [id number] [place] [address]- 7873 Feb, [facility] [place] [facility] [address] [id number] [place] [address] 2007 Feb, [facility] [place] [facility] [address] [id number] [place] [address] 6692 Jan, [facility] [place] [facility] [address] [id number] [place] [address] 7947 Jan, [facility] [place] [facility] [address] [id number] [place] [address] 6[address] Jan, [facility] [place] [facility] [address] [id number] [place] [address]483 Jan, [facility] [place] [facility] [address] [id number] [place] [address] 5560 Jan, [facility] [place] [facility] [address] [id number] [place] [address] Jan, [facility] [place] [facility] [address] [id number] [place] [address]106 Jan, [facility] [place] [facility] [address] [id number] [place] [address] 3819 Jan, [facility] [place] [facility] [address] [id number] [place] [address] 1098 Jan, [facility] [place] [facility] [address] [id number] [place] [address] 3088 Jan, [facility] [place] [facility] [address] [id number] [place] [address] 4[address] Jan, [facility] [place] [facility] [address] [id number] [place] [address] 6[address] Dec, [facility] [place] [facility] [address] [id number] [place] [address] 9827 Dec, [facility] [place] [facility] [address] [id number] [place] [address]994 Dec, [facility] [place] [facility] [address] [id number] [place] [address] 1082 Dec, [facility] [place] [facility] [address] [id number] [place] [address] Dec, [facility] [place] [facility] [address] [id number] [place] [address]- 5394 Dec, [facility] [place] [facility] [address] [id number] [place] [address] 2855 November, [facility] [place] [facility] [address] [id number] [place] [address] 6334 November, [facility] [place] [facility] [address] [id number] [place] [address] 7449 November, [facility] [address] [id number] [place] [address] 1708 November, [facility] [place] [facility] [address] [id number] [place] [address]- 0985 November, [facility] [place] [facility] [address] [id number] [place] [address]- 3233 November, [facility] [place] [facility] [address] [id number] [place] [address]- 1149 Oct, [facility] [place] [facility] [address] [id number] [place] [address] 0323 Oct, [facility] [place] [facility] [address] [id number] [place] [address]- 0843 Oct, [facility] [place] [facility] [address] [id number] [place] [address]- 6923 Oct, [facility] [place] [facility] [address] [id number] [place] [address] 5337 Sep, [facility] [place] [facility] [address] [id number] [place] [address] 5947 Sep, [facility] [place] [facility] [address] [id number] [place] [address] 3467 Sep, [facility] [place] [facility] [address] [id number] [place] [address]- 7085 Sep, [facility] [place] [facility] [address] [id number] [place] [address] 2387 Sep, [facility] [place] [facility] [address] [id number] [place] [address]- 1131 Aug, [facility] [place] [facility] [address] [id number] [place] [address] 0328 Aug, [facility] [place] [facility] [address] [id number] [place] [address] 2917 Aug, [facility] [place] [facility] [address] [id number] [place] [address] 7189 Aug, [facility] [address] [id number] [place] [address] 6913 Aug, [facility] [address] [facility] [id number] May, [facility] [address] [id number] [place] [address] 3521 May, [facility] [address] [id number] [place] [address] 5629 May, [facility] [address] [id number] [place] [address] 7384 May, [facility] [address] [id number] [place] [address]- 2316 May, [facility] [address] [id number] [place] [address]- 7144 Apr, [facility] [address] [id number] [place] [address]- 9113 Apr, [facility] [address] [id number] [place] [address] 3836 Apr, [facility] [address] [id number] [place] [address]- 9693 Apr, [facility] [address] [id number] [place] [address]- 0478 Apr, [facility] [address] [id number] [place] [address] 2545 Apr, [facility] [address] [id number] [place] [address]- 3434 Apr, [facility] [address] [id number] [place] [address] 2546 Mar, [facility] [address] [id number] [place] [address] Mar, [facility] [place] [facility] [address] [id number] [place] [address]- 5457 24 Mar, 2013 [facility] [place] [facility] [address] [id number] [place] [address]- 4259 16 Mar, 2013 [facility] [place] [facility] [address] [id number] [place] [address]- 4009 Mar, [facility] [place] [facility] [address] [id number] [place] [address]- 0623 Mar, [facility] [place] [facility] [address] [id number] [place] [address]- 8888 Feb, [facility] [place] [facility] [address] [id number] [place] [address]- 3032 Feb, [facility] [place] [facility] [address] [id number] [place] [address]- 5364 Feb, [facility] [place] [facility] [address] [id number] [place] [address]- 6932 Feb, [facility] [place] [facility] [address] [id number] [place] [address]- 5517 Feb, [facility] [place] [facility] [address] [id number] [place] [address]- 4121 Feb, [facility] [place] [facility] [address] [id number] [place] [address]- 7970 Jan, [facility] [place] [facility] [address] [id number] [place] [address]- 4865 Dec, [facility] [place] [facility] [address] [id number] [place] [address]- 0012 Dec, [facility] [place] [facility] [address] [id number] [place] [address]- 1691 Dec, [facility] [place] [facility] [address] [id number] [place] [address]- 9638 Dec, [facility] [place] [facility] [address] [id number] [place] [address]- 7818 19 Dec, 2012 [facility] [address] [id number] [place] [address]- 7621 18 Dec, 2012 [facility] [place] [facility] [address] [id number] [place] [address]- 4247 17 Dec, 2012 [facility] [address] [id number] [place] [address]- 1362 Dec, [facility] [place] [facility] [address] [id number] [place] [address]- 8992 Dec, [facility] [address] [id number] [place] [address]- 5449 November, [facility] [place] [facility] [address] [id number] [place] [address]- 1139 November, [facility] [address] [id number] [place] [address]- 1181 Oct, [facility] [address] [id number] [place] [address]- 5133 Sep, [facility] [address] [id number] [place] [address]- 9318 Sep, [facility] [place] [facility] [address] [id number] [place] [address]- 4529 Sep, [facility] [address] [id number] [place] [address]- 8641 Sep, [facility] [place] [facility] [address] [id number] [place] [address]- 4263 Aug, [facility] [place] [facility] [address] [id number] [place] [address]- 6131 Aug, [facility] [place] [facility] [address] [id number] [place] [address]- 8911 Jul, [facility] [place] [facility] [address] [id number], [place] [address]- [address]25 Jul, [facility] [address] [facility] [id number], [place] [address] 18 Jul, 2012 [facility] [address] [facility] [id number], [place] [address] 3525 22 Sep, 2011 [facility] [address] [facility] [id number], [place] [address]- 4776 17 Sep, 2011 [facility] [address] [facility] [id number], [place] [address]85 10 Sep, 2011 IMMUNIZATIONS No Known Immunizations [...] AMS-VC 09/21/16 Hospitalization History Large bowel obstruction, Dehydration-[facility] 01/01/17 Hospitalization History [facility]Sepsis 01/18/2018
--- OUTSIDE RECORDS SUMMARY | 2018-06-09 17:20 | XMS REPORT ---
Author Author LINDA BENTLEY Organization [facility] Address [address] [place] [address] Care Team Providers Care Jira Developer Name Role Phone LINDA BENTLEY Unavailable PROBLEMS Type Condition ICD9-CM Code OCO89-ZH Code Onset Dates Condition Status SNOMED Code Problem Abdominal pain, left lower quadrant R10.32 Active 336251517 Problem Mood disorder F39 Active 77050066 Problem Hypertension, benign I10 Active 19397075 Problem Chronic pain syndrome G89.4 Active 683626705 Problem Attention to urostomy Z43.6 Active 574623543 Problem Anxiety F41.9 Active 30952809 Problem Neuropathy G62.9 Active 377715698 Problem Malignant neoplasm of colon, unspecified part of colon C18.9 Active 692903600 Problem Polyneuropathy G62.9 Active 50864344 Problem Incontinence of feces, unspecified fecal incontinence type R15.9 Active 06742651 Problem Chronic fatigue, unspecified R53.82 Active 123824734 Problem Hydronephrosis with ureteral stricture, not elsewhere classified N13.1 Active 76667169 Problem Primary insomnia F51.01 Active 759518605 Problem 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 254720135 ALLERGIES No Information ENCOUNTERS Encounter Location Date Diagnosis [place] [id number] [place] [address] 18602- 2062 Feb, Hypertension, benign I10 [place] [address] [place] [id number] [place] [address] 15919- 3445 Feb, Hypertension, benign I10 ; Polyneuropathy G62.9 and Primary insomnia F51.01 [place] [address] [id number] [place] [address] 55025- 1417 Jan, Hypertension, benign I10 and Polyneuropathy G62.9 [place] [id number] [place] [address] 27053- 0647 Jan, Hypertension, benign I10 and Neuropathy G62.9 [facility] [id number] [place] [address] 49933- 4689 Jan, [facility] [id number] [place] [address] 50023- 9038 Dec, Polyneuropathy G62.9 [facility] [id number] [place] [address] 09141- 5676 Dec, Mood disorder F39 [facility] [id number] [place] [address] 89773- 5120 November, Polyneuropathy G62.9 [facility] [id number] [place] [address] 92285- 2860 November, Medicare annual wellness visit, initial Z00.00 [facility] [id number] [place] [address] 27821- 6393 November, Mood disorder F39 [facility] [id number] [place] [address] 43219- 1924 Oct, Polyneuropathy G62.9 [facility] [id number] [place] [address] 67020- 3001 Oct, [facility] [id number] [place] [address] 50128- 4504 Oct, [facility] [id number] [place] [address] 57558- 5999 Oct, Mood disorder F39 ; Attention to urostomy Z43.6 ; Chronic pain syndrome G89.4 and Polyneuropathy G62.9 [facility] [id number] [place] [address] 46407- 1248 Sep, Polyneuropathy G62.9 [facility] [id number] [place] [address] 26300- 3535 Sep, [facility] [id number] [place] [address] 68808- 5439 Sep, Polyneuropathy G62.9 [facility] [id number] [place] [address] 75496- 7391 Aug, Polyneuropathy G62.9 [facility] [id number] [place] [address] 83667- 3792 Aug, Malignant neoplasm of colon, unspecified part of colon C18.9 and Polyneuropathy G62.9 [facility] [id number] [place] [address] 98434- 3122 Aug, Neuropathy G62.9 and Polyneuropathy G62.9 [facility] [id number] [place] [address] 70027- 6374 Jul, Encounter for drug screening Z02.83 [facility] [id number] [place] [address] 20469- 6482 Jul, Polyneuropathy G62.9 [facility] [id number] [place] [address] 99004- 0735 Jul, [facility] [id number] [place] [address] 15504- 9650 Jul, Neuropathy G62.9 and Anxiety F41.9 [facility] [id number] [place] [address] 80757- 9858 Jul, [facility] [address] [id number] [place] [address] 59492- 4870 Jul, [facility] [id number] [place] [address] 27465- 1174 Jul, [facility] [id number] [place] [address] 87400- 7417 Jul, Polyneuropathy G62.9 [facility] [address] [place] [address] 80611- 9589 Jul, [facility] [id number] [place] [address] 79864- 7693 Jun, [facility] [address] [address]- 3785 Jun, [facility] [id number] [place] [address] 65265- 2730 Jun, [facility] [id number] [place] [address] Jun, Encounter for dental examination Z01.20 [facility] [address] [id number] [place] [address] 22041- 8070 Jun, Polyneuropathy G62.9 and Anxiety F41.9 [place] [address] [id number] [place] [address] 99003- 5274 Jun, [facility] [id number] [address] May, Dental examination Z01.20 [facility] [id number] [place] [address] 02687- 2127 May, Polyneuropathy G62.9 [place] [address] [id number] [place] [address] 00801- 7648 Apr, Polyneuropathy G62.9 [place] [address] [place] [id number] [place] [address] 01258- 3296 Apr, Polyneuropathy G62.9 [facility] [address] [place] [id number] [place] [address] 81255- 9124 Apr, Hypertension, benign I10 ; Polyneuropathy G62.9 and Anxiety F41.9 [facility] [address] [place] [id number] [place] [address] 67791- 4625 Apr, Primary insomnia F51.01 and Polyneuropathy G62.9 [facility] [address] [place] [id number] [place] [address] 49710- 2602 Apr, Primary insomnia F51.01 and Polyneuropathy G62.9 [place] [address] [facility] [id number] [place] [address]- 7792 Mar, Primary insomnia F51.01 [facility] [address] [facility] [id number] [place] [address]- 5050 Mar, [facility] [address] [facility] [id number] [place] [address]- 6385 Mar, Polyneuropathy G62.9 [facility] [address] [facility] [id number] [place] [address]- 8908 Feb, Primary insomnia F51.01 [facility] [address] [facility] [id number] [place] [address], [place] [address]- 5602 Feb, [facility] [address] [place] [address]- 7475 Feb, [facility] [id number] [place] [address], [place] [address]- 5450 Feb, Polyneuropathy G62.9 [facility] [address] [facility] [id number] [place] [address]- 5912 Feb, Primary insomnia F51.01 [facility] [address] [place] [address]- 9279 Jan, [facility] [id number] [place] [address]- 3554 Jan, [facility] [address], [place] [address]- 9934 Dec, [facility] [address] [place] [id number] [place] [address]- 7909 Dec, Primary insomnia F51.01 [facility] [address] [place] [address]- 1369 Dec, Primary insomnia F51.01 [facility] [address] [place] [address]- 9887 Dec, [facility] [address] [id number] [address]- 0308 Dec, [facility] [address], [place] [address]- 9627 Dec, [facility] [address], [place] [address]- 2151 Dec, [facility] [address], [place] [address]- 1801 November, Primary insomnia F51.01 and Polyneuropathy G62.9 [facility] [address], [place] [address]- 4877 November, [facility] [address] [place] [id number] [place] [address] 33908- 7783 November, Abdominal pain, left lower quadrant R10.32 [facility] [address] [address]- 4196 November, [facility] [address], [place] [address]- 2895 Oct, [facility] [address], [place] [address]- 4695 Oct, Abdominal pain, left lower quadrant R10.32 ; 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 and Neuropathy G62.9 [facility] [address], [place] [address]- 4736 Oct, [facility] [address], [place] [address]- 1635 Sep, [facility] [address] [place] [id number] [id number] Sep, [facility] [address], [place] [address]- 9692 Sep, [facility] [address], [place] [address]- 6795 Aug, [facility] [address] [id number] [place] [address] 12438- 3639 07 Aug, 2016 [facility] [address] [place] [id number] [place] [address] 77741- 4989 Aug, Abdominal pain, left lower quadrant R10.32 ; Neuropathy G62.9 and Anxiety F41.9 [facility] [address] [place] [address] Jul, [facility] [address] [id number] [place] [address] 07172- 3668 Jul, [facility] [address] [id number] [place] [address] 69376 -9841 Jul, [facility] [address] [id number] [place] [address] 49983- 0167 Jul, [facility] [address] [id number] [place] [address] 60657- 2797 Jul, [facility] [address] [id number] [place] [address] 34558- 1632 Jun, [facility] [address] [id number] [place] [address] 40985- 3797 May, [facility] [id number] [place] [address] 54969- 0151 May, [facility] [address] [id number] [place] [address] 91194- 5084 Apr, [facility] [address] [id number] [place] [address] 15191- 3558 Apr, Muscle spasms of both lower extremities M62.838 and Cellulitis, unspecified cellulitis site L03.90 [facility] [address] [id number] [place] [address] 46008- 9257 Apr, [facility] [address] [place] [id number] [place] [address] 01857- 2328 Mar, Generalized abdominal pain R10.84 [facility] [address] [place] [id number] [place] [address] [place] [address]- 3484 20 Mar, 2015 [facility] [address] [facility] [id number] [place] [address]- 8669 14 Mar, 2015 [facility] [address] [facility] [id number] [address]- 5953 14 Mar, 2015 [facility] [address] [facility] [id number], [place] [address]- 6557 13 Mar, 2015 [facility] [address] [facility] [id number], [place] [address]- 2524 12 Mar, 2015 [facility] [address] [facility] [id number] [place] [address] 51262- 7257 09 Mar, 2016 [facility] [address] [id number] [address]- 2886 06 Mar, 2016 [facility] [address], [place] [address]- 8996 Feb, Other specified diseases of anus and rectum K62.89 [facility] [address], [place] [address]- 7675 Feb, [facility] [address], [place] [address]- 2349 Feb, Dizziness R42 [facility] [address], [place] [address]- 9365 Feb, [facility] [address], [place] [address]- 8438 Jan, Polyneuropathy G62.9 [facility] [address] [facility] [id number], [place] [address]- 3059 Jan, Other specified diseases of anus and rectum K62.89 [facility] [address] [facility] [id number], [place] [address]- 9492 Jan, [facility] [id number], [place] [address] -0253 Jan, [facility] [address] [id number] [place] [address]- 6925 Jan, [facility] [address] [id number] [place] [address]- 4132 Jan, Dizziness R42 [facility] [place] [facility] [address] [id number] [place] [address]- 4998 Dec, [facility] [place] [facility] [address] [id number] [place] [address]- 2038 Dec, [facility] [address] [id number] [place] [address]- 1648 Dec, [facility] [address] [id number] [place] [address]- 2862 Dec, Dizziness R42 [facility] [address] [id number] [place] [address]- 0861 November, [facility] [address] [id number] [place] [address]- 0376 Oct, [facility] [place] [facility] [address] [id number] [place] [address]- 2039 Oct, [facility] [address] [facility] [id number] [place] [address]- 7528 Oct, [facility] [address] [id number] [place] [address]- 3601 Oct, [facility] [place] [facility] [address] [facility] [id number] [place] [address]- 6519 Sep, [facility] [place] [facility] [address] [facility] [id number] [place] [address]- 9493 Sep, Primary insomnia F51.01 [facility] [address] [facility] [id number] [place] 3761 Sep, Primary insomnia F51.01 [facility] [address] [facility] [id number] [place] [address]- 9582 Sep, [facility] [place] [facility] [id number] [place] [address] 47429- 3457 Aug, [facility] [address] [id number] [place] [address] 68116- 4146 Aug, [facility] [id number] [place] [address] 62887- 5045 Aug, Primary insomnia F51.01 ; Mood disorder F39 ; Nausea and vomiting, unspecified intactability, vomiting of unspecified type R11.2 and Diarrhea R19.7 [facility] [id number] [place] [address] 81870- 2028 Aug, [facility] [id number] [place] [address] 15535- 8952 Aug, Folliculitis L73.9 [facility] [id number] [place] [address] 84348- 8440 Aug, [facility] [id number] [place] [address] 76520- 7273 Aug, [facility] [id number] [place] [address] 25585- 2617 Jul, Folliculitis L73.9 [facility] [id number] [place] [address] 49525- 8149 Jul, [facility] [id number] [place] [address] 07949- 3114 Jun, Folliculitis L73.9 [facility] [id number] [place] [address] 70770- 4261 Jun, [facility] [id number] [place] [address] 22311- 0180 May, Polyneuropathy G62.9 [facility] [address] [place] [address] 23282- 9768 May, Other specified diseases of anus and rectum K62.89 [facility] [address], [place] [address]- 3503 May, [facility] [id number] [place] [address] 83078- 6134 May, Primary insomnia F51.01 [facility] [address], [place] [address]- 9057 May, [facility] [id number] [place] [address] 17566- 8397 May, [facility] [id number] [place] [address] 29074- 5440 Apr, Other specified diseases of anus and rectum K62.89 ; Chronic fatigue R53.82 ; Urinary tract infection, site not specified N39.0 and Enterococcus as the cause of diseases classified elsewhere B95.2 [facility] [id number] [place] [address] 99744- 4106 16 Apr, 2015 [facility] [id number] [place] [address] 87061- 3584 Apr, [facility] [id number] [place] [address] 83134- 7529 Apr, 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 [facility] [address], [place] [address]- 3733 Apr, [facility] [id number] [place] [address] 48010- 6855 26 Mar, 2015 [facility] [address] [address]- 6151 23 Mar, 2015 [facility] [id number] [place] [address] 86189- 0034 17 Mar, 2015 [facility] [address], [place] [address]- 8482 14 Mar, 2015 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 [facility] [id number] [place] [address] 96736- 1492 12 Mar, 2015 [facility] [address] [facility] [id number], [place] [address]- 7073 Mar, [facility] [address] [facility] [id number] [address]- 5226 Mar, [facility] [id number] [address]- 3020 Mar, [facility] [address] [facility] [id number], [place] [address]- 9749 Feb, [facility] [address] [facility] [id number], [place] [address]- 4536 Feb, [facility] [id number], [place] [address]- 4112 Feb, [facility] [id number] [place] [address] 56239- 3698 Jan, [facility] [id number] [address]- 5791 Jan, Nausea 787.02 and Neuropathy 355.9 [facility] [address], [place] [address]- 7543 Jan, [facility] [id number] [address] Jan, [facility] [id number], [place] [address] 16 Jan, 2015 [facility] [address] [id number] [id number] 10 Jan, 2015 Dental examination V72.2 [facility] [id number] [address] Jan, [facility] [id number], [place] [address] Dec, [facility] [id number], [place] [address] Dec, [facility] [place] [facility] [address] [id number] [place] [address] Dec, Neuropathy 355.9 [facility] [place] [facility] [address] [id number] [place] [address] November, [facility] [place] [facility] [address] [id number] [place] [address] November, [facility] [place] [facility] [address] [id number] [place] [address] November, [facility] [place] [facility] [address] [id number] [place] [address] Oct, [facility] [place] [facility] [address] [id number] [place] [address] Oct, [facility] [place] [facility] [address] [id number] [place] [address] Sep, [facility] [place] [facility] [address] [id number] [place] [address] Sep, [facility] [place] [facility] [address] [id number] [place] [address]- [address] Sep, [facility] [place] [facility] [address] [id number] [place] [address] Sep, [facility] [place] [facility] [address] [id number] [place] [address] Sep, [facility] [place] [facility] [address] [id number] [place] [address] Sep, [facility] [place] [facility] [address] [id number] [place] [address] Sep, [facility] [place] [facility] [address] [id number] [place] [address] Sep, [facility] [place] [facility] [address] [id number] [place] [address] Aug, [facility] [place] [facility] [address] [id number] [place] [address] Aug, 2014 [facility] [place] [facility] [address] [id number] [place] [address] Aug, 2014 [facility] [place] [facility] [address] [id number] [place] [address]- [address] Aug, 2014 [facility] [place] [facility] [address] [id number] [place] [address] Aug, 2014 [facility] [place] [facility] [address] [id number] [place] [address] Aug, 2014 [facility] [place] [facility] [address] [id number] [place] [address] Aug, 2014 [facility] [place] [facility] [address] [id number] [place] [address] Aug, 2014 [facility] [place] [facility] [address] [facility] [id number] [place] [address] Jul, [facility] [place] [facility] [address] [id number] [place] [address] Jul, [facility] [place] [facility] [address] [facility] [facility] [id number] [place] [address] Jun, [facility] [place] [facility] [address] [id number] [place] [address] Jun, [facility] [place] [facility] [address] [id number] [place] [address] 112[address] Jun, [facility] [place] [facility] [address] [id number] [place] [address] 49[address] Jun, [facility] [place] [facility] [address] [id number] [place] [address] Jun, [facility] [place] [facility] [address] [id number] [place] [address] 67[address] Jun, [facility] [place] [facility] [address] [id number], [place] [address] Jun, [facility] [place] [facility] [address] [id number] [place] [address] Jun, [facility] [place] [facility] [address] [id number] [place] [address] 0815 Jun, [facility] [place] [facility] [address] [facility] [id number] [place] [address] Jun, [facility] [place] [facility] [address] [id number] [place] [address] 4516 Jun, [facility] [place] [facility] [address] [id number] [place] [address] 3727 May, [facility] [place] [facility] [address] [id number] [place] [address] 2[address] May, [facility] [place] [facility] [address] [id number] [place] [address] 8456 May, [facility] [place] [facility] [address] [id number] [place] [address] 9058 May, [facility] [place] [facility] [address] [id number] [place] [address] 7922 May, [facility] [place] [facility] [address] [id number] [place] [address] 3408 May, [facility] [place] [facility] [address] [id number], [place] [address] May, [facility] [place] [facility] [address] [id number], [place] [address] May, [facility] [place] [facility] [address] [id number] [place] [address] 6[address] May, [facility] [place] [facility] [address] [id number] [place] [address] 63[address] Apr, [facility] [place] [facility] [address] [id number] [place] [address]- 2956 Apr, [facility] [place] [facility] [address] [id number] [place] [address]- 116[address] Apr, [facility] [place] [facility] [address] [id number] [place] [address]- 5047 Apr, [facility] [place] [facility] [address] [id number] [place] [address]- 6476 Apr, [facility] [place] [facility] [address] [id number] [place] [address]- 0277 Mar, [facility] [place] [facility] [address] [id number] [place] [address] 0436 Mar, [facility] [place] [facility] [address] [id number] [place] [address]- 2279 Feb, [facility] [place] [facility] [address] [id number] [place] [address]- 0681 Feb, [facility] [place] [facility] [address] [id number] [place] [address] 9106 Feb, [facility] [place] [facility] [address] [id number] [place] [address]- 1154 Feb, [facility] [place] [facility] [address] [id number] [place] [address]- 5244 Feb, [facility] [place] [facility] [address] [id number] [place] [address] 4378 Feb, [facility] [place] [facility] [address] [id number] [place] [address] 8[address] Jan, [facility] [place] [facility] [address] [id number] [place] [address]130 Jan, [facility] [place] [facility] [address] [id number] [place] [address] Jan, [facility] [place] [facility] [address] [id number] [place] [address]- 1628 Jan, [facility] [place] [facility] [address] [id number] [place] [address]- 6598 Jan, [facility] [place] [facility] [address] [id number] [place] [address]- 8654 Jan, [facility] [place] [facility] [address] [id number] [place] [address]- 3808 Jan, [facility] [place] [facility] [address] [id number] [place] [address]- 1139 Jan, [facility] [place] [facility] [address] [id number] [place] [address] 5169 Jan, [facility] [place] [facility] [address] [id number] [place] [address] 59[address] Jan, [facility] [place] [facility] [address] [id number] [place] [address]- 6377 Jan, [facility] [place] [facility] [address] [id number] [place] [address]- 3886 Dec, [facility] [place] [facility] [address] [id number] [place] [address]- 2532 Dec, [facility] [place] [facility] [address] [id number] [place] [address]- 4216 Dec, [facility] [place] [facility] [address] [id number] [place] [address]- 3609 Dec, [facility] [place] [facility] [address] [id number] [place] [address]- 7464 Dec, [facility] [place] [facility] [address] [id number] [place] [address]- 7998 Dec, [facility] [place] [facility] [address] [id number] [place] [address]- 5669 November, [facility] [place] [facility] [address] [id number] [place] [address]- 2608 November, [facility] [place] [facility] [address] [id number] [place] [address]- 7958 November, [facility] [place] [facility] [address] [id number] [place] [address]- 0989 November, [facility] [place] [facility] [address] [id number] [place] [address]- 2848 November, [facility] [place] [facility] [address] [id number] [place] [address]- 6535 November, [facility] [place] [facility] [address] [id number] [place] [address]- 9188 Oct, [facility] [place] [facility] [address] [id number] [place] [address] 9305 Oct, [facility] [place] [facility] [address] [id number] [place] [address] 1885 Oct, [facility] [place] [facility] [address] [id number] [place] [address] 0796 Oct, [facility] [place] [facility] [address] [id number] [place] [address]- 6162 Sep, [facility] [place] [facility] [address] [id number] [place] [address]- 1474 Sep, [facility] [place] [facility] [address] [id number] [place] [address]- 0579 Sep, [facility] [place] [facility] [address] [facility] [id number] [place] [address] 1636 Sep, [facility] [place] [facility] [address] [id number] [place] [address] 6966 Sep, [facility] [place] [facility] [address] [id number] [place] [address]- 1149 Aug, [facility] [place] [facility] [address] [id number] [place] [address]- 7709 Aug, [facility] [place] [facility] [address] [id number] [place] [address]- 7266 Aug, [facility] [place] [facility] [address] [id number] [place] [address] 6809 Aug, [facility] [place] [facility] [address] [id number] [place] [address]- 1457 14 Aug, 2013 [facility] [address] [place] [id number] May, [facility] [address] [id number] [place] [address] 4038 May, [facility] [address] [id number] [place] [address]- 5594 May, [facility] [address] [id number] [place] [address]- 7229 May, [facility] [address] [id number] [place] [address]- 4437 May, [facility] [address] [id number] [place] [address]- 0975 Apr, [facility] [address] [id number] [place] [address]- 3118 Apr, [facility] [address] [id number] [place] [address]- 6708 Apr, [facility] [address] [id number] [place] [address]- 6803 Apr, [facility] [address] [id number] [place] [address]- 5252 Apr, [facility] [address] [id number] [place] [address]- 9396 Apr, [facility] [address] [id number] [place] [address]- 3860 Apr, [facility] [address] [id number] [place] [address]- 5048 Mar, [facility] [address] [id number] [place] [address]- 1410 Mar, [facility] [address] [id number] [place] [address]- 3583 Mar, [facility] [place] [facility] [address] [id number] [place] [address]- 8580 16 Mar, 2013 [facility] [place] [facility] [address] [id number] [place] [address]- 1839 Mar, [facility] [place] [facility] [address] [id number] [place] [address]- 5003 Mar, [facility] [place] [facility] [address] [id number] [place] [address]- 0539 Feb, [facility] [place] [facility] [address] [id number] [place] [address]- 6492 Feb, [facility] [place] [facility] [address] [id number] [place] [address]- 8014 Feb, [facility] [place] [facility] [address] [id number] [place] [address]- 1548 Feb, [facility] [place] [facility] [address] [id number] [place] [address]- 2626 Feb, [facility] [place] [facility] [address] [id number] [place] [address]- 6025 Feb, [facility] [place] [facility] [address] [id number] [place] [address]- 3621 Jan, [facility] [place] [facility] [address] [id number] [place] [address]- 7365 Dec, [facility] [place] [facility] [address] [id number] [place] [address]- 8283 Dec, [facility] [place] [facility] [address] [id number] [place] [address]- 5561 Dec, [facility] [place] [facility] [address] [id number] [place] [address]- 0085 Dec, [facility] [place] [facility] [address] [id number] [place] [address]- 4436 Dec, [facility] [place] [facility] [address] [id number] [place] [address]- 8565 18 Dec, 2012 [facility] [address] [id number] [place] [address]- 3304 Dec, [facility] [address] [id number] [place] [address]- 7209 Dec, [facility] [address] [id number] [place] [address]- 4087 Dec, [facility] [place] [facility] [address] [id number] [place] [address]- 9551 November, [facility] [address] [id number] [place] [address]- 4963 November, [facility] [address] [id number] [place] [address]- 1275 Oct, [facility] [address] [id number] [place] [address]- 5584 Sep, [facility] [address] [id number] [place] [address]- 5641 Sep, [facility] [address] [id number] [place] [address]- 0664 15 Sep, 2012 [facility] [address] [id number] [place] [address]- 8809 Sep, [facility] [address] [id number] [place] [address]- 6727 Aug, [facility] [place] [facility] [address] [id number] [place] [address]- 1316 Aug, [facility] [place] [facility] [address] [id number] [place] [address]- 7119 Jul, [facility] [place] [facility] [address] [id number] [place] [address]- 3124 Jul, [facility] [place] [facility] [address] [id number], [place] [address] 7286 Jul, [facility] [address] [facility] [id number][place] [id number]- [address] Sep, [facility] [address] [facility] [id number], [place] [address]- 8137 Sep, [facility] [address] [facility] [id number][place] [id number] [address] 10 Sep, 2011 IMMUNIZATIONS No Known Immunizations SOCIAL HISTORY Never Assessed REASON FOR VISIT Controlled refill request PLAN OF CARE VITAL SIGNS MEDICATIONS Medication Instructions Dosage Frequency Start Date End Date Duration Status Percocet 10-325 MG Orally every 4 hrs 1 tablet 4h November, 28 days Active Oxycodone HCl 30 MG Orally 2 times a day 1 tablet as needed 12h November, 28 days Active RESULTS No Results PROCEDURES [...] dizziness and nausea 12/07/15 Hospitalization History UTI, [facility] 09/21/16 Hospitalization History Large bowel obstruction, [facility] 01/01/17 Hospitalization History [facility], [place]- UTI/Sepsis 01/18/2018
--- OUTSIDE RECORDS SUMMARY | 2018-06-09 17:20 | XMS REPORT ---
Author Author LINDA BENTLEY Organization [facility] [place] Address [address] [place] [address] Care Team Providers Care Business And Financial Counsel Name Role Phone LINDA BENTLEY Unavailable PROBLEMS Type Condition ICD9-CM Code HMU39-CP Code Onset Dates Condition Status SNOMED Code Problem Abdominal pain, left lower quadrant R10.32 Active 435338613 Problem Mood disorder F39 Active 69083904 Problem Hypertension, benign I10 Active 40304957 Problem Chronic pain syndrome G89.4 Active 284382998 Problem Attention to urostomy Z43.6 Active 712910165 Problem Anxiety F41.9 Active 33949470 Problem Neuropathy G62.9 Active 276613704 Problem Malignant neoplasm of colon, unspecified part of colon C18.9 Active 885228164 Problem Polyneuropathy G62.9 Active 10255090 Problem Incontinence of feces, unspecified fecal incontinence type R15.9 Active 63206303 Problem Chronic fatigue, unspecified R53.82 Active 106371839 Problem Hydronephrosis with ureteral stricture, not elsewhere classified N13.1 Active 50041641 Problem Primary insomnia F51.01 Active 366199474 Problem 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 965268343 ALLERGIES Substance Reaction Event Type Date Status Morphine Unknown Drug Allergy November, Active Codeine Unknown Drug Allergy November, Active ENCOUNTERS Encounter Location Date Diagnosis [facility] [place] [id number] [address] Feb, [facility] [place] [id number] [place] [address] 71947- 0896 Jan, Hypertension, benign I10 and Polyneuropathy G62.9 [facility] [place] [id number], [place] [address] Jan, Hypertension, benign I10 and Neuropathy G62.9 [facility] [place] [address], [place] [address] 6[address] Jan, [facility] [place] [id number] [place] [address] 82629- 7646 Dec, Polyneuropathy G62.9 [facility] [place] [id number] [address] 4242 Dec, Mood disorder F39 [facility] [place] [id number] [place] [address] 64472- 4244 November, Polyneuropathy G62.9 [facility] [place] [id number] [place] [address] 92514- 3466 November, Medicare annual wellness visit, initial Z00.00 [facility] [place] [id number] [place] [address] 04086- 1783 November, Mood disorder F39 [facility] [place] [id number] [place] [address] 28961- 2899 Oct, Polyneuropathy G62.9 [facility] [place] [id number] [place] [address] 31460- 9410 Oct, [facility] [place] [id number] [place] [address] 97996- 3946 Oct, [facility] [place] [address], [place] [address] 4154 Oct, Mood disorder F39 ; Attention to urostomy Z43.6 ; Chronic pain syndrome G89.4 and Polyneuropathy G62.9 [facility] [place] [address], [place] [address]- 9123 Sep, Polyneuropathy G62.9 [facility] [place] [id number] [place] [address] 20967- 7383 Sep, [facility] [place] [address], [place] [address]- 9989 Sep, Polyneuropathy G62.9 [facility] [place] [address] 93425- 2769 Aug, Polyneuropathy G62.9 [facility] [place] [address] 31476- 5438 Aug, Malignant neoplasm of colon, unspecified part of colon C18.9 and Polyneuropathy G62.9 [facility] [place] [address] 38306- 6844 Aug, Neuropathy G62.9 and Polyneuropathy G62.9 [facility] [place] [address] 21408- 7576 Jul, Encounter for drug screening Z02.83 [facility] [place] [address] 48431- 5322 Jul, Polyneuropathy G62.9 [facility] [place] [address] 45779- 8146 Jul, [facility] [place] [address] 44151- 3044 Jul, Neuropathy G62.9 and Anxiety F41.9 [facility] [place] [address] 04026- 4926 Jul, [facility] [place] [address] 20974- 9206 Jul, [facility] [place] [address] 16300- 3290 Jul, [facility] [place] [address] 27178- 0376 Jul, Polyneuropathy G62.9 [facility] [place] [address] 88992- 4776 Jul, [facility] [place] [address] 42958- 0110 Jun, [facility] [place] [address] 75182- 3517 Jun, [facility] [place] [address], [place] [address] 2081 Jun, [facility] [id number], [place] [address] Jun, Encounter for dental examination Z01.20 [facility] [place] [id number] [place] [address] 48020- 1605 Jun, Polyneuropathy G62.9 and Anxiety F41.9 [facility] [place] [id number] [place] [address] 50668- 6726 Jun, [facility] [id number], [place] [address] May, Dental examination Z01.20 [facility] [place] [id number] [place] [address] 98865- 2655 May, Polyneuropathy G62.9 [facility] [place] [id number] [place] [address] 45875- 3420 Apr, Polyneuropathy G62.9 [facility] [place] [id number] [place] [address] 02986- 1169 Apr, Polyneuropathy G62.9 [facility] [place] [id number] [place] [address] 80309- 3799 Apr, Hypertension, benign I10 ; Polyneuropathy G62.9 and Anxiety F41.9 [facility] [place] [id number] [place] [address] 20555- 6611 Apr, Primary insomnia F51.01 and Polyneuropathy G62.9 [facility] [place] [id number] [place] [address] 39775- 3219 Apr, Primary insomnia F51.01 and Polyneuropathy G62.9 [facility] [place] [id number] [place] [address] 32089- 4881 Mar, Primary insomnia F51.01 [facility] [address] [facility] [id number] [place] [address]- 0832 Mar, [facility] [id number] [place] [address], [place] [address]- 2826 Mar, Polyneuropathy G62.9 [facility] [place] [id number] [place] [address] 1733 Feb, Primary insomnia F51.01 [facility] [id number] [place] [address], [place] [address]- 1286 Feb, [facility] [id number] [place] [address], [place] [address]- 7000 Feb, [facility] [id number] [place] [address], [place] [address]- 0639 Feb, Polyneuropathy G62.9 [facility] [place] [id number] [place] [address], [place] [address]- 2309 Feb, Primary insomnia F51.01 [facility] [id number] [place] [address]- 1141 Jan, [facility] [id number] [place] [address], [place] [address]- 9102 Jan, [facility] [address], [place] [address]- 1087 Dec, [facility] [address], [place] [address]- 4875 Dec, Primary insomnia F51.01 [facility] [id number] [place] [address]- 4729 Dec, Primary insomnia F51.01 [facility] [id number] [place] [address]- 0624 Dec, [facility] [place] [facility] [id number] [place] [address]- 3501 Dec, [facility] [id number], [place] [address]- 3703 Dec, [facility] [place] [id number] [place] [address] 41588- 9898 Dec, [facility] [id number] [place] [address] 477001- 8552 November, Primary insomnia F51.01 and Polyneuropathy G62.9 [facility] [place] [id number] [place] [address] 54873- 5351 November, [facility] [id number] [place] [address] 86174- 8510 November, Abdominal pain, left lower quadrant R10.32 [facility] [place] [id number] [place] [address] 08296- 5353 November, [facility] [place] [id number] [place] [address] 86983- 0818 Oct, [facility] [id number] [place] [address] 18140- 9142 Oct, Abdominal pain, left lower quadrant R10.32 ; 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 and Neuropathy G62.9 [facility] [place] [address], [place] [address]- 3544 Oct, [facility] [id number], [place] [address]- 1546 Sep, [facility] [id number] [place] [address] [id number] Sep, [facility] [id number], [place] [address]- 0843 Sep, [facility] [id number] [place] [address] 14907- 7442 Aug, [facility] [address], [place] [address]- 2564 Aug, [facility] [id number], [place] [address]- 9384 Aug, Abdominal pain, left lower quadrant R10.32 ; Neuropathy G62.9 and Anxiety F41.9 [facility] [address] [place] [address] Jul, [facility] [place] [id number] [place] [address] 70160- 5417 Jul, [facility] [id number] [place] [address] 14174 -8339 Jul, [facility] [place] [id number] [place] [address] 31822- 1635 Jul, [facility] [place] [id number] [place] [address] 61643- 6369 Jul, [facility] [place] [id number] [place] [address] 16541- 5517 Jun, [facility] [place] [id number] [place] [address] 22063- 0163 May, [facility] [place] [id number] [place] [address] 37195- 8954 May, [facility] [place] [id number] [place] [address] 81913- 5381 Apr, [facility] [place] [id number] [place] [address] 52782- 3038 Apr, Muscle spasms of both lower extremities M62.838 and Cellulitis, unspecified cellulitis site L03.90 [facility] [place] [id number] [place] [address] 18350- 6845 Apr, [facility] [place] [id number] [place] [address] 03721- 3579 Mar, Generalized abdominal pain R10.84 [facility] [place] [id number] [place] [address] 08073- 9257 Mar, [facility] [place] [id number] [place] [address] 20457- 4929 14 Mar, 2016 [facility] [place] [address], [place] [address]- 3715 14 Mar, 2016 [facility] [place] [id number] [place] [address] 97387- 8817 13 Mar, 2016 [facility] [place] [id number] [place] [address] 76602- 3534 12 Mar, 2016 [facility] [place] [id number] [place] [address] 23747- 4133 09 Mar, 2016 [facility] [place] [id number] [place] [address] 84995- 7919 06 Mar, 2016 [facility] [place] [id number] [place] [address] 01065- 2120 Feb, Other specified diseases of anus and rectum K62.89 [facility] [place] [id number] [place] [address] 25233- 6513 Feb, [facility] [place] [id number] [place] [address] 42187- 1268 Feb, Dizziness R42 [facility] [place] [id number] [place] [address] 67944- 2909 Feb, [facility] [place] [address], [place] [address]- 8906 Jan, Polyneuropathy G62.9 [facility] [place] [address], [place] [address]- 7426 Jan, Other specified diseases of anus and rectum K62.89 [facility] [place] [address], [place] [address]- 7136 Jan, [facility] [id number], [place] [address] -7068 Jan, [facility] [place] [address], [place] [address]- 9623 Jan, [facility] [place] [address] [id number] [place] [address]- 1400 Jan, Dizziness R42 [facility] [id number] [place] [address], [place] [address]- 6282 Dec, [facility] [address] [facility] [id number] [place] [address]- 5636 Dec, [facility] [address] [facility] [id number] [place] [address], [place] [address]- 6328 Dec, [facility] [address] [id number] [place] [address]- 1543 Dec, Dizziness R42 [facility] [address] [facility] [id number] [place] [address], [place] [address]- 4976 November, [facility] [address] [facility] [id number] [place] [address]- 0639 Oct, [facility] [id number] [place] [address]- 3106 Oct, [facility] [address] [facility] [id number] [place] [address]- 9419 Oct, [facility] [id number] [place] [address]- 2376 Oct, [facility] [address] [facility] [id number] [place] [address]- 7050 Sep, [facility] [id number] [place] [address]- 1555 Sep, Primary insomnia F51.01 [facility] [address] [facility] [id number] [place] [address]- 1925 Sep, Primary insomnia F51.01 [facility] [address] [facility] [id number] [place] 9509 Sep, [facility] [id number] [place] [address]- 7263 Aug, [facility] [place] [id number] [place] [address] 04348- 4874 Aug, [facility] [place] [id number] [place] [address] 94944- 1281 Aug, Primary insomnia F51.01 ; Mood disorder F39 ; Nausea and vomiting, unspecified intactability, vomiting of unspecified type R11.2 and Diarrhea R19.7 [facility] [place] [address] 31432- 4340 Aug, [facility] [place] [id number] [place] [address] 40991- 0976 Aug, Folliculitis L73.9 [facility] [place] [id number] [place] [address] 47438- 9568 Aug, [facility] [place] [id number] [place] [address] 20448- 7103 Aug, [facility] [place] [id number] [place] [address] 97996- 0247 Jul, Folliculitis L73.9 [facility] [place] [id number] [place] [address] 08588- 9257 Jul, [facility] [place] [id number] [place] [address] 49407- 5379 Jun, Folliculitis L73.9 [facility] [place] [id number] [place] [address] 53427- 3975 Jun, [facility] [place] [id number] [place] [address] 35502- 6648 May, Polyneuropathy G62.9 [facility] [place] [id number] [place] [address] 51746- 6741 May, Other specified diseases of anus and rectum K62.89 [facility] [place] [id number] [place] [address] 62036- 3192 May, [facility] [place] [id number], [place] [address]- 2241 13 May, 2015 Primary insomnia F51.01 [facility] [place] [id number] [place] [address] 29946- 5299 May, [facility] [place] [id number] [place] [address] 07940- 0573 May, [facility] [place] [id number] [place] [address] 62087- 6714 Apr, Other specified diseases of anus and rectum K62.89 ; Chronic fatigue R53.82 ; Urinary tract infection, site not specified N39.0 and Enterococcus as the cause of diseases classified elsewhere B95.2 [facility] [place] [id number] [place] [address] 78472- 6802 16 Apr, 2015 [facility] [place] [id number] [place] [address] 75507- 8645 15 Apr, 2015 [facility] [id number] [place] [address] 62959- 6660 14 Apr, 2015 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 [facility] [id number] [place] [address] 57649- 4724 05 Apr, 2015 [facility] [id number] [place] [address] [id number]- [phone] 26 Mar, 2015 [facility] [place] [id number] [place] [address] [phone] 23 Mar, 2015 [facility] [place] [id number] [place] [address] [id number]- [id number] 17 Mar, 2015 [facility] [place] [id number] [place] [address] 34825- [id number] 14 Mar, 2015 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 [facility] [place] [id number] [place] [address] 53934- [phone] 12 Mar, 2015 [facility] [place] [id number] [place] [address] [phone]- [phone] Mar, [facility] [address] [facility] [id number], [place] [address] Mar, [facility] [address] [facility] [id number], [place] [address]- 9[address] Mar, [facility] [address] [facility] [id number], [place] [address] 69[address] Feb, [facility] [address] [facility] [id number], [place] [address] 1753 Feb, [facility] [address] [facility] [id number], [place] [address] 3367 Feb, [facility] [id number] [place] [address] [id number]- [id number] Jan, [facility] [id number] [place] [address] [phone]- [phone] Jan, Nausea 787.02 and Neuropathy 355.9 [facility] [address] [id number], [place] [address] Jan, [facility] [id number] [place] [address] 78644- [phone] Jan, [facility] [id number], [place] [address] Jan, [facility] [address] [id number] [id number] Jan, Dental examination V72.2 [facility] [address] [id number], [place] [address] 1204 Jan, [facility] [address] [id number], [place] [address] Dec, [facility] [address] [id number], [place] [address] Dec, [facility] [address] [id number], [place] [address] Dec, Neuropathy 355.9 [facility] [place] [facility] [address] [id number] [place] [address] November, [facility] [place] [facility] [address] [id number] [place] [address] November, [facility] [place] [facility] [address] [facility] [id number] [place] [address] November, [facility] [place] [facility] [address] [id number] [place] [address] Oct, [facility] [place] [facility] [address] [id number] [place] [address] 1081 Oct, [facility] [place] [facility] [address] [facility] [id number] [place] [address] 269[address] Sep, [facility] [place] [facility] [address] [facility] [id number] [place] [address] 84[address] Sep, [facility] [place] [facility] [address] [facility] [id number] [place] [address]- [address]200 Sep, [facility] [place] [facility] [address] [facility] [id number] [place] [address]- 2715 Sep, [facility] [place] [facility] [address] [facility] [id number] [place] [address]- [address] Sep, [facility] [place] [facility] [address] [facility] [id number], [place] [address] Sep, [facility] [place] [facility] [address] [facility] [id number], [place] [address] 14[address] Sep, [facility] [place] [facility] [address] [facility] [id number] [place] [address]- 7250 Sep, [facility] [place] [facility] [address] [facility] [id number], [place] [address] Aug, [facility] [place] [facility] [address] [facility] [id number] [place] [address]- 3006 Aug, [facility] [place] [facility] [address] [facility] [id number] [place] [address]- [address]38 Aug, 2014 [facility] [place] [facility] [address] [id number] [place] [address]- 8[address] Aug, 2014 [facility] [place] [facility] [address] [id number] [place] [address]- 0736 Aug, 2014 [facility] [place] [facility] [address] [id number] [place] [address]- 9676 Aug, 2014 [facility] [place] [facility] [address] [id number] [place] [address]- 0661 Aug, 2014 [facility] [place] [facility] [address] [id number] [place] [address]- 7759 Aug, 2014 [facility] [place] [facility] [address] [id number] [place] [address]- 4363 Jul, [facility] [place] [facility] [address] [facility] [id number] [place] [address]- 7036 Jul, [facility] [place] [facility] [address] [id number] [place] [address]- 6220 Jun, [facility] [place] [facility] [address] [id number] [place] [address]- 6136 Jun, [facility] [place] [facility] [address] [facility] [id number] [place] [address]- 9840 Jun, [facility] [place] [facility] [address] [id number] [place] [address]- 2545 Jun, [facility] [place] [facility] [address] [id number] [place] [address]- 9536 Jun, [facility] [place] [facility] [address] [id number] [place] [address]- 2546 Jun, [facility] [place] [facility] [address] [id number] [place] [address]- 2546 Jun, [facility] [place] [facility] [address] [id number] [place] [address]- 9548 Jun, [facility] [place] [facility] [address] [id number] [place] [address]- 0508 Jun, [facility] [place] [facility] [address] [id number] [place] [address]- 9180 Jun, [facility] [place] [facility] [address] [facility] [id number] [place] [address]- 5949 Jun, [facility] [place] [facility] [address] [id number] [place] [address]- 1865 May, [facility] [place] [facility] [address] [id number] [place] [address]- 6132 May, [facility] [place] [facility] [address] [id number] [place] [address]- 5115 May, [facility] [place] [facility] [address] [id number] [place] [address]- 0313 May, [facility] [place] [facility] [address] [id number], [place] [address]- [address] May, [facility] [place] [facility] [address] [id number] [place] [address]- 8402 May, [facility] [place] [facility] [address] [id number] [place] [address]- 2939 May, [facility] [place] [facility] [address] [id number], [place] [address]- 1465 May, [facility] [place] [facility] [address] [id number], [place] [address]- 8582 May, [facility] [place] [facility] [address] [id number] [place] [address]- 9195 Apr, [facility] [place] [facility] [address] [id number], [place] [address]- 8860 Apr, [facility] [place] [facility] [address] [id number], [place] [address] 7[address] Apr, [facility] [place] [facility] [address] [id number] [place] [address]- 2618 Apr, [facility] [place] [facility] [address] [id number] [place] [address]- 2952 Apr, [facility] [place] [facility] [address] [id number] [place] [address]- 8436 Mar, [facility] [place] [facility] [address] [id number] [place] [address]- 1384 Mar, [facility] [place] [facility] [address] [id number] [place] [address]- 7411 Feb, [facility] [place] [facility] [address] [id number] [place] [address]- 4732 Feb, [facility] [place] [facility] [address] [id number] [place] [address]- 5069 Feb, [facility] [place] [facility] [address] [id number] [place] [address]- 3855 Feb, [facility] [place] [facility] [address] [id number] [place] [address]- 4514 Feb, [facility] [place] [facility] [address] [id number] [place] [address]- 4891 Feb, [facility] [place] [facility] [address] [id number] [place] [address]- 8988 Jan, [facility] [place] [facility] [address] [id number] [place] [address]- 5091 Jan, [facility] [place] [facility] [address] [id number] [place] [address]- 4580 Jan, [facility] [place] [facility] [address] [id number] [place] [address]- 5114 Jan, [facility] [place] [facility] [address] [id number] [place] [address]- 6116 Jan, [facility] [place] [facility] [address] [id number] [place] [address]- 3120 Jan, [facility] [place] [facility] [address] [id number] [place] [address]- 0395 Jan, [facility] [place] [facility] [address] [id number] [place] [address]- 0312 Jan, [facility] [place] [facility] [address] [id number] [place] [address]- 4954 Jan, [facility] [place] [facility] [address] [id number] [place] [address]- 8497 Jan, [facility] [place] [facility] [address] [id number] [place] [address]- 2908 Jan, [facility] [place] [facility] [address] [id number] [place] [address]- 8495 Dec, [facility] [place] [facility] [address] [id number] [place] [address]- 8409 Dec, [facility] [place] [facility] [address] [id number] [place] [address]- 3116 Dec, [facility] [place] [facility] [address] [id number] [place] [address]- 2934 Dec, [facility] [place] [facility] [address] [id number] [place] [address]- 7735 Dec, [facility] [place] [facility] [address] [id number] [place] [address]- 1291 Dec, [facility] [place] [facility] [address] [id number] [place] [address]- 4911 November, [facility] [place] [facility] [address] [id number] [place] [address]- 7106 November, [facility] [place] [facility] [address] [id number] [place] [address]- 0292 November, [facility] [place] [facility] [address] [id number] [place] [address] November, [facility] [place] [facility] [address] [id number] [place] [address]- 6261 November, [facility] [address] [id number] [place] [address]- 3752 November, [facility] [address] [id number] [place] [address] Oct, [facility] [address] [id number] [place] [address]- 4388 Oct, [facility] [address] [id number] [place] [address]- 5877 Oct, [facility] [address] [id number] [place] [address]- 7536 Oct, [facility] [address] [id number] [place] [address]- 6041 Sep, [facility] [address] [id number] [place] [address]- 1574 Sep, [facility] [address] [id number] [place] [address]- 4562 Sep, [facility] [address] [id number] [place] [address]- 8934 Sep, [facility] [place] [facility] [address] [id number] [place] [address]- 1450 Sep, [facility] [address] [id number] [place] [address]- 6630 Aug, [facility] [place] [facility] [address] [id number] [place] [address]- 4738 Aug, [facility] [place] [facility] [address] [id number] [place] [address]- 8723 Aug, [facility] [place] [facility] [address] [id number] [place] [address]- 7712 Aug, [facility] [address] [facility] [id number] [place] [address]- 9543 14 Aug, 2013 [facility] [address] [place] [id number] May, [facility] [address] [id number] [place] [address]- 2170 May, [facility] [address] [id number] [place] [address]- 5271 May, [facility] [address] [id number] [place] [address]- 9852 May, [facility] [address] [id number] [place] [address]- 6762 May, [facility] [address] [id number] [place] [address]- 4298 Apr, [facility] [address] [id number] [place] [address]- 0583 Apr, [facility] [address] [id number] [place] [address]- 0421 Apr, [facility] [address] [id number] [place] [address]- 5296 Apr, [facility] [address] [id number] [place] [address]- 3637 Apr, [facility] [address] [id number] [place] [address]- 8717 Apr, [facility] [address] [id number] [place] [address]- 0863 Apr, [facility] [address] [id number] [place] [address]- 2720 28 Mar, 2013 [facility] [address] [id number] [place] [address]- 7672 25 Mar, 2013 [facility] [address] [id number] [place] [address]- 3637 24 Mar, 2013 [facility] [address] [id number] [place] [address]- 3093 16 Mar, 2013 [facility] [place] [facility] [address] [id number] [place] [address]- 3651 Mar, [facility] [place] [facility] [address] [id number] [place] [address]- 3132 Mar, [facility] [place] [facility] [address] [id number] [place] [address]- 3516 Feb, [facility] [place] [facility] [address] [id number] [place] [address]- 7097 Feb, [facility] [place] [facility] [address] [id number] [place] [address]- 7292 Feb, [facility] [place] [facility] [address] [id number] [place] [address]- 0299 Feb, [facility] [place] [facility] [address] [id number] [place] [address]- 3451 Feb, [facility] [place] [facility] [address] [id number] [place] [address]- 6889 Feb, [facility] [place] [facility] [address] [id number] [place] [address]- 7272 Jan, [facility] [place] [facility] [address] [id number] [place] [address]- 3311 Dec, [facility] [place] [facility] [address] [id number] [place] [address]- 5323 Dec, [facility] [place] [facility] [address] [id number], [place] [address]- 7070 Dec, [facility] [place] [facility] [address] [id number] [place] [address]- 5128 Dec, [facility] [place] [facility] [address] [id number] [place] [address]- 4867 Dec, [facility] [place] [facility] [address] [id number], [place] [address]- 3732 Dec, [facility] [place] [facility] [address] [id number], [place] [address]- 0699 Dec, [facility] [address] [id number] [place] [address]- 2904 Dec, [facility] [address] [id number] [place] [address]- 5148 Dec, [facility] [address] [id number] [place] [address]- 7374 November, [facility] [address] [id number] [place] [address]- 3813 November, [facility] [address] [id number] [place] [address]- 0445 Oct, [facility] [address] [id number] [place] [address]- 6328 Sep, [facility] [address] [id number] [place] [address]- 9438 Sep, [facility] [address] [id number] [place] [address]- 6200 Sep, [facility] [address] [id number] [place] [address]- 5991 Sep, [facility] [address] [id number] [place] [address]- 3092 Aug, [facility] [address] [id number] [place] [address]- 0372 Aug, [facility] [address] [id number] [place] [address]- 9226 Jul, [facility] [address] [id number] [place] [address]- 1284 Jul, [facility] [place] [facility] [address] [id number] [place] [address]- 7778 Jul, [facility] [address] [id number] [place] [address]- 2341 Sep, [facility] [address] [facility] [id number] [place] [address]- 3635 Sep, [facility] [address] [facility] [id number] [place] [address]- 9853 Sep, IMMUNIZATIONS No Known Immunizations SOCIAL HISTORY Never Assessed REASON FOR VISIT Medicare AWV - Initial Visit WB-MA PLAN OF CARE Activity Details Follow Up 1 Year Reason: VITAL SIGNS Height 67 in 2017-11-22 Weight 199 lbs 2017-11-22 Temperature 96.6 degrees Fahrenheit 2017-11-22 Heart Rate 96 bpm 2017-11-22 Respiratory Rate 18 2017-11-22 Oximetry on room air:98 % 2017-11-22 BMI 31.16 kg/m2 2017-11-22 Blood pressure systolic 116 mmHg 2017-11-22 Blood pressure diastolic 78 mmHg 2017-11-22 MEDICATIONS Medication Instructions Dosage Frequency Start Date End Date Duration Status Wheelchair 1 as directed Dec, Active Zofran 4 MG Orally 3 times a day 1 tablet 8h November, Active Acyclovir 5 % Externally Five times a day 1 application to affected area Dec, Active Percocet 10-325 MG Orally every 4 hrs 1 tablet 4h Oct, 28 days Active Zoloft 100 mg Orally Once a day 1 tablet 24h 30 Active Lyrica 150 MG Orally 3 times a day 1 capsule 8h Feb, 28 days Active Oxycodone HCl 30 MG Orally 2 times a day 1 tablet as needed 12h Oct, 28 days Active Incontinence Brief Large 1 as directed Aug, Active RESULTS No Results PROCEDURES Procedure Date Ordered Result Body Site [facility] VISIT IPPE/AWV November 22, 2017 ANNUAL ERIN VST; PERSNL PPS INIT November 22, 2017 PT TOBACCO SCREEN RCVD TLK November 22, 2017 FALL RISK ASSESSMENT DOCD November 22, 2017 CLIN DEPRESSION SCREEN DOC November 22, 2017 INSTRUCTIONS MEDICATIONS ADMINISTERED No Known Medications MEDICAL (GENERAL) HISTORY Type Description Date Medical History Gerd, gastroparesis Medical History depression Medical History Rectal cancer s/p chemo and radiation:last chemo 07/16/14 dc' d due to intolerance, no evidence of recurrent disease on PET scan 10/08/13 Medical History dizziness Medical History liver enzymes elevated Surgical History colon resection with ileostomy by dr. Cook d/t rectal cancer 5/23/13 Surgical History bladder removal 2012 Surgical History broken left arm 04/2017 Hospitalization History abd pain anemia, recurrent UTI 10/15/13 Hospitalization History colon resection with ileostomy by dr. Cook d/t rectal cancer 12/06.13 Hospitalization History Intractable n/v, chronic, abd pain, acute renal 03/27 Hospitalization History [facility] for dizziness and nausea 12/07/15 Hospitalization History UTI, AMS-[facility] 09/21/16 Hospitalization History Large bowel obstruction, Dehydration-VC 01/01/17 Hospitalization History [facility]- U[facility]Sepsis 01/18/2018
--- OUTSIDE RECORDS SUMMARY | 2018-06-09 17:21 | XMS REPORT ---
Author Author LINDA BENTLEY Organization [facility] Address [address] [place] [address] Care Team Providers Care Rehab Technician Name Role Phone LINDA BENTLEY Unavailable PROBLEMS Type Condition ICD9-CM Code FXX34-HR Code Onset Dates Condition Status SNOMED Code Problem Abdominal pain, left lower quadrant R10.32 Active 666667984 Problem Mood disorder F39 Active 67240344 Problem Hypertension, benign I10 Active 41256363 Problem Chronic pain syndrome G89.4 Active 786734071 Problem Attention to urostomy Z43.6 Active 628955609 Problem Anxiety F41.9 Active 10043632 Problem Neuropathy G62.9 Active 785874453 Problem Malignant neoplasm of colon, unspecified part of colon C18.9 Active 103574541 Problem Polyneuropathy G62.9 Active 35674424 Problem Incontinence of feces, unspecified fecal incontinence type R15.9 Active 71293495 Problem Chronic fatigue, unspecified R53.82 Active 360176236 Problem Hydronephrosis with ureteral stricture, not elsewhere classified N13.1 Active 41402636 Problem Primary insomnia F51.01 Active 517566404 Problem 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 052271350 ALLERGIES No Information ENCOUNTERS Encounter Location Date Diagnosis [place] [id number] [place] [address] 91182- 8487 Feb, [place] [id number] [place] [address] 24189- 6110 Jan, Hypertension, benign I10 and Polyneuropathy G62.9 [place] [id number] [place] [address] 94717- 6149 Jan, Hypertension, benign I10 and Neuropathy G62.9 [place] [address] [place] [id number] [place] [address] 70848- 4421 Jan, [place] [address] [address] 5143 Dec, Polyneuropathy G62.9 [facility] [id number] [place] [address] 66398- 7219 Dec, Mood disorder F39 [facility] [id number] [place] [address] 45841- 7208 November, Polyneuropathy G62.9 [facility] [id number] [place] [address] 09109- 8033 November, Medicare annual wellness visit, initial Z00.00 [facility] [id number] [place] [address] 52983- 9321 November, Mood disorder F39 [facility] [id number] [place] [address] 70056- 6674 Oct, Polyneuropathy G62.9 [facility] [id number] [place] [address] 00735- 9902 Oct, [facility] [id number] [place] [address] 77130- 4409 Oct, [facility] [id number] [place] [address] 01420- 6157 Oct, Mood disorder F39 ; Attention to urostomy Z43.6 ; Chronic pain syndrome G89.4 and Polyneuropathy G62.9 [facility] [id number] [place] [address] 68727- 1360 Sep, Polyneuropathy G62.9 [facility] [address] [address]- 1203 Sep, [facility] [id number] [place] [address] 47367- 2538 Sep, Polyneuropathy G62.9 [facility] [address] [address]- 3203 Aug, Polyneuropathy G62.9 [facility] [id number] [place] [address] 54048- 5203 Aug, Malignant neoplasm of colon, unspecified part of colon C18.9 and Polyneuropathy G62.9 [facility] [id number] [place] [address] 76550- 3868 Aug, Neuropathy G62.9 and Polyneuropathy G62.9 [facility] [id number] [place] [address] 12967- 3863 Jul, Encounter for drug screening Z02.83 [facility] [id number] [place] [address] 45543- 4563 Jul, Polyneuropathy G62.9 [facility] [id number] [place] [address] 00426- 1972 Jul, [facility] [address] 29056- 9545 Jul, Neuropathy G62.9 and Anxiety F41.9 [facility] [id number] [place] [address] 02834- 9145 Jul, [facility] [id number] [place] [address] 27780- 9013 Jul, [facility] [id number] [place] [address] 53689- 1153 Jul, [facility] [id number] [place] [address] 39496- 7119 Jul, Polyneuropathy G62.9 [facility] [id number] [place] [address] 86372- 0409 Jul, [facility] [id number] [place] [address] 79513- 5856 Jun, [facility] [id number] [place] [address] 87871- 4594 Jun, [facility] [address] [place] [address]- 9085 07 Jun, 2017 [facility] [address] [id number] [address] Jun, Encounter for dental examination Z01.20 [facility] [id number] [place] [address] 93848- 0357 Jun, Polyneuropathy G62.9 and Anxiety F41.9 [facility] [id number] [place] [address] 10798- 4508 Jun, [facility] [id number] [address] May, Dental examination Z01.20 [facility] [id number] [place] [address] 58937- 1808 May, Polyneuropathy G62.9 [facility] [address] 52050- 5727 Apr, Polyneuropathy G62.9 [facility] [id number] [place] [address] 49120- 6652 Apr, Polyneuropathy G62.9 [facility] [id number] [place] [address] 84982- 9858 Apr, Hypertension, benign I10 ; Polyneuropathy G62.9 and Anxiety F41.9 [facility] [id number] [place] [address] 84245- 9564 Apr, Primary insomnia F51.01 and Polyneuropathy G62.9 [facility] [id number] [place] [address] 50972- 8076 Apr, Primary insomnia F51.01 and Polyneuropathy G62.9 [facility] [id number] [place] [address] 17341- 5837 Mar, Primary insomnia F51.01 [facility] [id number] [place] [address] 55445- 8794 Mar, [facility] [address] [facility] [id number] [address]- 5323 Mar, Polyneuropathy G62.9 [facility] [id number] [place] [address] 90869- 9626 Feb, Primary insomnia F51.01 [facility] [id number] [place] [address] 99794- 9612 Feb, [facility] [id number] [place] [address] 23096- 1211 Feb, [facility] [id number] [place] [address] 49557- 4686 Feb, Polyneuropathy G62.9 [facility] [id number] [place] [address] 24288- 3387 Feb, Primary insomnia F51.01 [facility] [id number] [place] [address] 21283- 9306 Jan, [facility] [id number] [place] [address] 84167- 6975 Jan, [facility] [address] [place] [address] 40210- 1554 Dec, [facility] [id number], [place] [address]- 4597 Dec, Primary insomnia F51.01 [facility] [place] [facility] [address] [place] [address] 38499- 9467 Dec, Primary insomnia F51.01 [facility] [place] [facility] [id number] [place] [address] 06452- 0215 Dec, [facility] [place] [facility] [id number] [place] [address] 83897- 1780 Dec, [facility] [place] [facility] [address], [place] [address]- 0892 Dec, [facility] [address], [place] [address]- 1836 Dec, [facility] [id number] [place] [address] 73881- 5804 November, Primary insomnia F51.01 and Polyneuropathy G62.9 [facility] [id number] [place] [address] 77092- 4533 November, [facility] [id number] [place] [address] 83055- 4015 November, Abdominal pain, left lower quadrant R10.32 [facility] [id number] [place] [address] 68210- 1459 November, [facility] [id number] [place] [address] 33496- 4764 Oct, [facility] [id number] [place] [address] 28990- 0321 Oct, Abdominal pain, left lower quadrant R10.32 ; 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 and Neuropathy G62.9 [facility] [id number] [place] [address] 92402- 8744 Oct, [facility] [address], [place] [address]- 7719 Sep, [facility] [id number] [place] [address] [id number] Sep, [facility] [address], [place] [address]- 5340 Sep, [facility] [id number] [place] [address] 60273- 9558 Aug, [facility] [id number] [place] [address] 09264- 0193 Aug, [facility] [address], [place] [address]- 0445 Aug, Abdominal pain, left lower quadrant R10.32 ; Neuropathy G62.9 and Anxiety F41.9 [facility] [address] [facility] [address] Jul, [facility] [id number] [place] [address] 81616- 3228 Jul, [facility] [id number] [place] [address] 29691 -7573 Jul, [facility] [id number] [place] [address] 64152- 9502 Jul, [facility] [id number] [place] [address] 50090- 3242 Jul, [facility] [id number] [place] [address] 75248- 3629 Jun, [facility] [id number] [place] [address] 03630- 1726 May, [facility] [id number] [place] [address] 30216- 9173 May, [facility] [id number] [place] [address] 95216- 0165 Apr, [facility] [id number] [place] [address] 04537- 9368 Apr, Muscle spasms of both lower extremities M62.838 and Cellulitis, unspecified cellulitis site L03.90 [facility] [id number] [address]- 9564 Apr, [facility] [id number] [place] [address] 98653- 3446 23 Mar, 2016 Generalized abdominal pain R10.84 [facility] [address] [place] [address] 80768- 3940 20 Mar, 2016 [facility] [address] [address]- 4679 14 Mar, 2016 [facility] [address], [place] [address]- 4441 14 Mar, 2015 [facility] [address] [facility] [id number] [place] [address]- 7886 13 Mar, 2016 [facility] [address] [place] [address] 29304- 8698 12 Mar, 2016 [facility] [id number] [place] [address] 63682- 7715 09 Mar, 2016 [facility] [id number] [place] [address] 32626- 7875 06 Mar, 2016 [facility] [id number] [place] [address] 72846- 4060 Feb, Other specified diseases of anus and rectum K62.89 [facility] [address] [place] [address] 51845- 9395 Feb, [facility] [id number] [place] [address] 31270- 2070 Feb, Dizziness R42 [facility] [id number] [place] [address] 85926- 5243 Feb, [facility] [id number] [place] [address] 17031- 1793 Jan, Polyneuropathy G62.9 [facility] [address] [place] [address] 18577- 2707 Jan, Other specified diseases of anus and rectum K62.89 [facility] [address], [place] [address]- 9636 Jan, [facility] [id number] [place] [address] 63347 -0237 Jan, [facility] [address], [place] [address]- 5374 Jan, [facility] [id number] [place] [address] 77378- 4773 Jan, Dizziness R42 [facility] [address] [facility] [id number] [place] [address]- 1725 Dec, [facility] [address] [facility] [id number] [place] [address]- 9366 Dec, [facility] [address] [place] [address]- 7956 Dec, [facility] [address] [facility] [id number] [place] [address], [place] [address]- 0515 Dec, Dizziness R42 [facility] [address] [facility] [id number] [place] [address], [place] [address]- 4733 November, [facility] [address] [id number] [place] [address], [place] [address]- 8234 Oct, [facility] [address] [place] [address], [place] [address]- 8490 Oct, [facility] [address] [place] [address]- 1286 Oct, [facility] [address] [place] [address]- 8299 Oct, [facility] [address] [place] [address]- 5710 Sep, [facility] [address] [place] [address]- 8960 Sep, Primary insomnia F51.01 [facility] [address] [place] [address]- 3701 Sep, Primary insomnia F51.01 [facility] [place] [facility] [address] [place] [address]- 1897 Sep, [facility] [place] [facility] [address]- 7156 Aug, [facility] [address] [place] [address]- 5676 Aug, [facility] [address] [place] [address] 12224- 8899 Aug, Primary insomnia F51.01 ; Mood disorder F39 ; Nausea and vomiting, unspecified intactability, vomiting of unspecified type R11.2 and Diarrhea R19.7 [facility] [id number] [place] [address] 13577- 0129 Aug, [facility] [id number] [place] [address] 11282- 1795 Aug, Folliculitis L73.9 [facility] [id number] [place] [address] 95082- 1233 Aug, [facility] [id number] [place] [address] 08946- 3114 Aug, [facility] [address] 69429- 0307 Jul, Folliculitis L73.9 [facility] [id number] [place] [address] 62216- 9841 Jul, [facility] [id number] [place] [address] 36954- 4790 Jun, Folliculitis L73.9 [facility] [id number] [place] [address] 33623- 2611 Jun, [facility] [id number] [place] [address] 55358- 3474 May, Polyneuropathy G62.9 [facility] [id number] [place] [address] 68947- 4875 May, Other specified diseases of anus and rectum K62.89 [facility] [id number] [place] [address] 59877- 0267 May, [facility] [id number] [place] [address] 86950- 8313 May, Primary insomnia F51.01 [facility] [address], [place] [address]- 9063 May, [facility] [id number] [place] [address] 19476- 8284 May, [facility] [address], [place] [address]- 1142 Apr, Other specified diseases of anus and rectum K62.89 ; Chronic fatigue R53.82 ; Urinary tract infection, site not specified N39.0 and Enterococcus as the cause of diseases classified elsewhere B95.2 [facility] [id number] [place] [address] 57607- 9821 16 Apr, 2015 [facility] [id number] [place] [address] 69865- 5115 15 Apr, 2015 [facility] [id number] [place] [address] 95479- 4851 Apr, 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 [facility] [address], [place] [address]- 1604 05 Apr, 2015 [facility] [id number] [place] [address] 53482- 5867 26 Mar, 2015 [facility] [address], [place] [address]- 1536 23 Mar, 2015 [facility] [address] [place] [address] 81939- 7105 17 Mar, 2015 [facility] [address] [address]- 6226 14 Mar, 2015 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 [facility] [id number] [place] [address] 90611- 6977 12 Mar, 2015 [facility] [address], [place] [address]- 2190 11 Mar, 2015 [facility] [id number] [address]- 5222 Mar, [facility] [address] [facility] [id number], [place] [address]- 2989 Mar, [facility] [place] [facility] [address] [facility] [id number], [place] [address] 2540 Feb, [facility] [address] [facility] [id number], [place] [address]- 5231 Feb, [facility] [place] [facility] [address] [facility] [id number], [place] [address] 254 Feb, [facility] [address] [facility] [id number] [place] [address] 54315- 6297 Jan, [facility] [place] [facility] [address], [place] [address]- 0851 Jan, Nausea 787.02 and Neuropathy 355.9 [facility] [address], [place] [address]- 4362 Jan, [facility] [address], [place] [address]- 3888 Jan, [facility] [address], [place] [address]- 6941 Jan, [facility] [id number] [address] Jan, Dental examination V72.2 [facility] [address], [place] [address]- 3990 Jan, [facility] [place] [facility] [address] [facility] [id number], [place] [address]- 3972 Dec, [facility] [place] [facility] [address] 2801 Dec, [facility] [place] [facility] [id number] [address]- 7131 Dec, Neuropathy 355.9 [facility] [place] [facility] [address] [place] [address]- 8112 November, [facility] [place] [facility] [address] [id number] [place] [address]- 7646 November, [facility] [place] [facility] [address] [id number] [place] [address]- 3525 November, [facility] [place] [facility] [address] [id number] [place] [address]- 7156 Oct, [facility] [place] [facility] [address] [id number] [place] [address]- 4575 Oct, [facility] [place] [facility] [address] [id number] [place] [address]- 2416 Sep, [facility] [place] [facility] [address] [id number] [place] [address]- 8051 Sep, [facility] [place] [facility] [address] [id number] [place] [address]- 4251 Sep, [facility] [place] [facility] [address] [id number] [place] [address]- 7847 Sep, [facility] [place] [facility] [address] [id number] [place] [address] Sep, [facility] [place] [facility] [address] [facility] [id number] [place] [address] Sep, [facility] [place] [facility] [address] [id number] [place] [address] Sep, [facility] [place] [facility] [address] [id number] [place] [address] Sep, [facility] [place] [facility] [address] [id number] [place] [address] Aug, [facility] [place] [facility] [address] [id number] [place] [address] Aug, [facility] [place] [facility] [address] [id number] [place] [address] Aug, [facility] [place] [facility] [address] [id number] [place] [address] Aug, 2014 [facility] [place] [facility] [address] [id number] [place] [address] Aug, 2014 [facility] [place] [facility] [address] [id number] [place] [address] Aug, 2014 [facility] [place] [facility] [address] [id number] [place] [address] Aug, 2014 [facility] [place] [facility] [address] [id number] [place] [address] Aug, [facility] [place] [facility] [address] [id number] [place] [address] Jul, [facility] [place] [facility] [address] [id number] [place] [address] Jul, [facility] [place] [facility] [address] [id number] [place] [address] Jun, [facility] [place] [facility] [address] [id number] [place] [address] Jun, [facility] [place] [facility] [address] [id number] [place] [address] Jun, [facility] [place] [facility] [address] [id number] [place] [address] Jun, [facility] [place] [facility] [address] [id number] [place] [address] Jun, [facility] [place] [facility] [address] [id number] [place] [address] Jun, [facility] [place] [facility] [address] [id number] [place] [address] Jun, [facility] [place] [facility] [address] [id number] [place] [address] Jun, [facility] [place] [facility] [address] [id number] [place] [address] Jun, [facility] [place] [facility] [address] [id number] [place] [address] Jun, [facility] [place] [facility] [address] [id number] [place] [address] Jun, [facility] [place] [facility] [address] [id number] [place] [address] May, [facility] [place] [facility] [address] [id number] [place] [address] May, [facility] [place] [facility] [address] [id number] [place] [address] May, [facility] [place] [facility] [address] [id number] [place] [address] May, [facility] [place] [facility] [address] [id number] [place] [address] 2004 May, [facility] [place] [facility] [address] [id number] [place] [address] May, [facility] [place] [facility] [address] [id number] [place] [address] May, [facility] [place] [facility] [address] [facility] [id number] [place] [address] May, [facility] [place] [facility] [address] [id number] [place] [address] May, [facility] [place] [facility] [address] [id number] [place] [address] Apr, [facility] [place] [facility] [address] [id number] [place] [address] Apr, [facility] [place] [facility] [address] [id number] [place] [address] Apr, [facility] [place] [facility] [address] [facility] [id number] [place] [address] Apr, [facility] [place] [facility] [address] [id number] [place] [address] Apr, [facility] [place] [facility] [address] [id number] [place] [address] Mar, [facility] [place] [facility] [address] [id number] [place] [address] Mar, [facility] [place] [facility] [address] [id number] [place] [address] Feb, [facility] [place] [facility] [address] [id number] [place] [address] Feb, [facility] [place] [facility] [address] [id number] [place] [address] Feb, [facility] [place] [facility] [address] [id number] [place] [address] Feb, [facility] [place] [facility] [address] [id number] [place] [address] Feb, [facility] [place] [facility] [address] [id number] [place] [address] Feb, [facility] [place] [facility] [address] [id number] [place] [address] Jan, [facility] [place] [facility] [address] [id number] [place] [address] Jan, [facility] [place] [facility] [address] [id number] [place] [address] Jan, [facility] [place] [facility] [address] [id number] [place] [address] Jan, [facility] [place] [facility] [address] [id number] [place] [address] 16[address] Jan, [facility] [place] [facility] [address] [id number] [place] [address] 4750 Jan, [facility] [place] [facility] [address] [id number] [place] [address] 6345 Jan, [facility] [place] [facility] [address] [id number] [place] [address] Jan, [facility] [place] [facility] [address] [id number] [place] [address] Jan, [facility] [place] [facility] [address] [id number] [place] [address]99 Jan, [facility] [place] [facility] [address] [id number] [place] [address] 6416 Jan, [facility] [place] [facility] [address] [id number] [place] [address] Dec, [facility] [place] [facility] [address] [id number] [place] [address] 0916 Dec, [facility] [place] [facility] [address] [id number] [place] [address] Dec, [facility] [place] [facility] [address] [id number] [place] [address] 9677 Dec, [facility] [place] [facility] [address] [id number] [place] [address] 4003 Dec, [facility] [place] [facility] [address] [id number] [place] [address] 9879 Dec, [facility] [place] [facility] [address] [id number] [place] [address]77 November, [facility] [place] [facility] [address] [id number] [place] [address] 8[address] November, [facility] [place] [facility] [address] [id number] [place] [address]78 November, [facility] [place] [facility] [address] [id number] [place] [address]339 November, [facility] [place] [facility] [address] [id number] [place] [address] November, [facility] [place] [facility] [address] [id number] [place] [address] 0027 November, [facility] [address] [id number] [place] [address]676 Oct, [facility] [address] [id number] [place] [address] Oct, [facility] [address] [id number] [place] [address] 6588 Oct, [facility] [address] [id number] [place] [address]106 Oct, [facility] [address] [id number] [place] [address] Sep, [facility] [address] [id number] [place] [address] 1326 Sep, [facility] [address] [id number] [place] [address]- 1642 Sep, [facility] [address] [id number] [place] [address]195 Sep, [facility] [address] [id number] [place] [address] Sep, [facility] [address] [id number] [place] [address] 1796 Aug, [facility] [address] [id number] [place] [address] 1475 Aug, [facility] [address] [id number] [place] [address] 9834 Aug, [facility] [address] [id number] [place] [address] Aug, [facility] [address] [id number] [place] [address]- [address] 14 Aug, 2013 [facility] [address] [place] [id number] May, [facility] [place] [facility] [address] [id number] [place] [address] May, [facility] [place] [facility] [address] [id number] [place] [address] May, [facility] [place] [facility] [address] [id number] [place] [address] 9745 May, [facility] [place] [facility] [address] [id number] [place] [address]- 0967 May, [facility] [place] [facility] [address] [id number] [place] [address]- 1018 Apr, [facility] [place] [facility] [address] [id number] [place] [address]- 2206 Apr, [facility] [place] [facility] [address] [id number] [place] [address]- 5881 Apr, [facility] [place] [facility] [address] [id number] [place] [address] 2230 Apr, [facility] [place] [facility] [address] [id number] [place] [address]- 7588 Apr, [facility] [place] [facility] [address] [id number] [place] [address]- 7209 Apr, [facility] [place] [facility] [address] [id number] [place] [address] 7107 Apr, [facility] [place] [facility] [address] [id number], [place] [address] 28 Mar, 2013 [facility] [place] [facility] [address] [id number] [place] [address] 4948 25 Mar, 2013 [facility] [place] [facility] [address] [id number] [place] [address]- 6691 24 Mar, 2013 [facility] [place] [facility] [address] [id number] [place] [address]- 9871 16 Mar, 2013 [facility] [place] [facility] [address] [id number] [place] [address]- 9401 Mar, [facility] [place] [facility] [address] [id number] [place] [address]- 9119 Mar, [facility] [place] [facility] [address] [id number] [place] [address]- 1306 Feb, [facility] [place] [facility] [address] [id number] [place] [address]- 3628 Feb, [facility] [place] [facility] [address] [id number] [place] [address]- 7192 Feb, [facility] [place] [facility] [address] [id number] [place] [address]- 1254 Feb, [facility] [place] [facility] [address] [id number] [place] [address]- 1340 Feb, [facility] [place] [facility] [address] [id number] [place] [address]- 6158 Feb, [facility] [place] [facility] [address] [id number] [place] [address]- 4537 Jan, [facility] [place] [facility] [address] [id number] [place] [address]- 2567 Dec, [facility] [place] [facility] [address] [id number] [place] [address]- 9505 Dec, [facility] [place] [facility] [address] [id number] [place] [address]- 7074 Dec, [facility] [place] [facility] [address] [id number] [place] [address]- 3110 Dec, [facility] [place] [facility] [address] [id number] [place] [address]- 8832 Dec, [facility] [place] [facility] [address] [id number] [place] [address]- 4856 Dec, [facility] [place] [facility] [address] [id number] [place] [address]- 4863 Dec, [facility] [place] [facility] [address] [id number] [place] [address]- 3066 Dec, [facility] [address] [id number] [place] [address]- 2480 Dec, [facility] [address] [id number] [place] [address] 2546 November, [facility] [address] [id number] [place] [address]- 1646 November, [facility] [address] [id number] [place] [address]- 2331 Oct, [facility] [address] [id number] [place] [address]- 4355 Sep, [facility] [address] [id number] [place] [address]- 4386 Sep, [facility] [address] [id number] [place] [address]- 5228 Sep, [facility] [address] [id number] [place] [address]- 0241 Sep, [facility] [address] [id number] [place] [address]- 1743 Aug, [facility] [address] [id number] [place] [address]- 9040 Aug, [facility] [address] [id number] [place] [address]- 9183 Jul, [facility] [address] [id number] [place] [address]- 5605 Jul, [facility] [address] [id number] [place] [address]- 9126 Jul, [facility] [address] [id number] [place] [address] 2546 Sep, [facility] [address] [id number] [place] [address]- 1066 Sep, [facility] [address] [facility] [id number] [place] [address]- [address]16 Sep, IMMUNIZATIONS No Known Immunizations SOCIAL HISTORY Never Assessed REASON FOR VISIT Controlled refill request 11/24/17 PLAN OF CARE VITAL SIGNS MEDICATIONS Medication [...] dizziness and nausea 12/07/15 Hospitalization History UTI, AMS-[facility] 09/21/16 Hospitalization History Large bowel obstruction, Dehydration-[facility] 01/01/17 Hospitalization History [facility]- UTI/Sepsis 01/18/2018
--- OUTSIDE RECORDS SUMMARY | 2018-06-09 17:22 | XMS REPORT ---
Author Author LINDA BENTLEY Organization [facility] Address [address] [place] [address] Care Team Providers Care Textile Technical Officer Name Role Phone LINDA BENTLEY Unavailable PROBLEMS Type Condition ICD9-CM Code JJG59-LV Code Onset Dates Condition Status SNOMED Code Problem Abdominal pain, left lower quadrant R10.32 Active 282674687 Problem Mood disorder F39 Active 49927217 Problem Hypertension, benign I10 Active 90870520 Problem Chronic pain syndrome G89.4 Active 421773806 Problem Attention to urostomy Z43.6 Active 159795453 Problem Anxiety F41.9 Active 19902564 Problem Neuropathy G62.9 Active 245695795 Problem Malignant neoplasm of colon, unspecified part of colon C18.9 Active 059191965 Problem Polyneuropathy G62.9 Active 85964587 Problem Incontinence of feces, unspecified fecal incontinence type R15.9 Active 22043038 Problem Chronic fatigue, unspecified R53.82 Active 483502346 Problem Hydronephrosis with ureteral stricture, not elsewhere classified N13.1 Active 45310066 Problem Primary insomnia F51.01 Active 665927206 Problem 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 735497381 ALLERGIES No Information ENCOUNTERS Encounter Location Date Diagnosis [place] [id number] [place] [address] 37199- 0973 Feb, [place] [id number] [place] [address] 68854- 6788 Jan, Hypertension, benign I10 and Polyneuropathy G62.9 [place] [id number] [place] [address] 73446- 1970 Jan, Hypertension, benign I10 and Neuropathy G62.9 [place] [address] [place] [id number] [place] [address] 58455- 5681 Jan, [place] [address] [address] 0807 Dec, Polyneuropathy G62.9 [facility] [id number] [place] [address] 61935- 3221 Dec, Mood disorder F39 [facility] [id number] [place] [address] 09273- 5209 November, Polyneuropathy G62.9 [facility] [id number] [place] [address] 12853- 0201 November, Medicare annual wellness visit, initial Z00.00 [facility] [id number] [place] [address] 32017- 8444 November, Mood disorder F39 [facility] [id number] [place] [address] 52366- 4204 Oct, Polyneuropathy G62.9 [facility] [id number] [place] [address] 64612- 8162 Oct, [facility] [id number] [place] [address] 34303- 6512 Oct, [facility] [id number] [place] [address] 07701- 5283 Oct, Mood disorder F39 ; Attention to urostomy Z43.6 ; Chronic pain syndrome G89.4 and Polyneuropathy G62.9 [facility] [id number] [place] [address] 65853- 6661 Sep, Polyneuropathy G62.9 [facility] [id number] [address]- 2906 Sep, [facility] [id number] [place] [address] 54533- 9112 Sep, Polyneuropathy G62.9 [facility] [address] [address]- 1852 Aug, Polyneuropathy G62.9 [facility] [id number] [place] [address] 98286- 8723 Aug, Malignant neoplasm of colon, unspecified part of colon C18.9 and Polyneuropathy G62.9 [facility] [id number] [place] [address] 87639- 2108 Aug, Neuropathy G62.9 and Polyneuropathy G62.9 [facility] [id number] [place] [address] 63778- 5818 Jul, Encounter for drug screening Z02.83 [facility] [id number] [place] [address] 83801- 0147 Jul, Polyneuropathy G62.9 [facility] [id number] [place] [address] 18463- 2277 Jul, [facility] [address] 06137- 5308 Jul, Neuropathy G62.9 and Anxiety F41.9 [facility] [id number] [place] [address] 80585- 8999 Jul, [facility] [id number] [place] [address] 96080- 3544 Jul, [facility] [id number] [place] [address] 72610- 7434 Jul, [facility] [id number] [place] [address] 84574- 3883 Jul, Polyneuropathy G62.9 [facility] [id number] [place] [address] 42234- 2337 Jul, [facility] [id number] [place] [address] 68733- 5309 Jun, [facility] [id number] [place] [address] 91832- 4344 Jun, [facility] [address] [place] [address]- 7117 07 Jun, 2017 [facility] [address] [id number] [address] Jun, Encounter for dental examination Z01.20 [facility] [id number] [place] [address] 65644- 7682 Jun, Polyneuropathy G62.9 and Anxiety F41.9 [facility] [id number] [place] [address] 06850- 4598 Jun, [facility] [id number] [address] May, Dental examination Z01.20 [facility] [id number] [place] [address] 44344- 8180 May, Polyneuropathy G62.9 [facility] [address] 78868- 1962 Apr, Polyneuropathy G62.9 [facility] [id number] [place] [address] 16907- 4230 Apr, Polyneuropathy G62.9 [facility] [address] [place] [address] [id number] [place] [address] 70943- 7437 Apr, Hypertension, benign I10 ; Polyneuropathy G62.9 and Anxiety F41.9 [facility] [id number] [place] [address] 58502- 1986 Apr, Primary insomnia F51.01 and Polyneuropathy G62.9 [facility] [id number] [place] [address] 61609- 0766 Apr, Primary insomnia F51.01 and Polyneuropathy G62.9 [facility] [id number] [place] [address] 61959- 0948 Mar, Primary insomnia F51.01 [facility] [id number] [place] [address] 22302- 1091 Mar, [facility] [address] [facility] [id number] [address] 4633 Mar, Polyneuropathy G62.9 [facility] [id number] [place] [address] 96468- 9639 Feb, Primary insomnia F51.01 [facility] [id number] [place] [address] 47774- 3270 Feb, [facility] [id number] [place] [address] 08061- 2775 Feb, [facility] [id number] [place] [address] 81420- 8041 Feb, Polyneuropathy G62.9 [facility] [id number] [place] [address] 79297- 9669 Feb, Primary insomnia F51.01 [facility] [id number] [place] [address] 15066- 9259 Jan, [facility] [address] [place] [address] 38318- 4235 Jan, [facility] [address] [place] [address] 30882- 4419 Dec, [facility] [id number] [address]- 1662 Dec, Primary insomnia F51.01 [facility] [place] [facility] [address] [place] [address] 20700- 1902 Dec, Primary insomnia F51.01 [facility] [place] [facility] [address] [id number] [place] [address] 64763- 3751 Dec, [facility] [place] [facility] [id number] [place] [address] 56227- 6264 Dec, [facility] [place] [facility] [address] [address]- 0675 Dec, [facility] [address] [address]- 5881 Dec, [facility] [id number] [place] [address] 91298- 7443 November, Primary insomnia F51.01 and Polyneuropathy G62.9 [facility] [id number] [place] [address] 61353- 7083 November, [facility] [id number] [place] [address] 10871- 4568 November, Abdominal pain, left lower quadrant R10.32 [facility] [id number] [place] [address] 17716- 5200 November, [facility] [id number] [place] [address] 81283- 6934 Oct, [facility] [id number] [place] [address] 69897- 6924 Oct, Abdominal pain, left lower quadrant R10.32 ; 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 and Neuropathy G62.9 [facility] [id number] [place] [address] 36072- 2001 Oct, [facility] [address] [address]- 4353 Sep, [facility] [address] [place] [id number] [place] [address] [id number] Sep, [facility] [address] [address]- 3267 Sep, [facility] [id number] [place] [address] 07849- 2797 Aug, [facility] [id number] [place] [address] 94390- 8335 Aug, [facility] [address] [address]- 5260 Aug, Abdominal pain, left lower quadrant R10.32 ; Neuropathy G62.9 and Anxiety F41.9 [facility] [address] [facility] [address] Jul, [facility] [id number] [place] [address] 23794- 4106 Jul, [facility] [id number] [place] [address] 80207 -0602 Jul, [facility] [id number] [place] [address] 29368- 7736 Jul, [facility] [id number] [place] [address] 27132- 0624 Jul, [facility] [id number] [place] [address] 33459- 5795 Jun, [facility] [id number] [place] [address] 61759- 2120 May, [facility] [id number] [place] [address] 26466- 9899 May, [facility] [id number] [place] [address] 90214- 6653 Apr, [facility] [id number] [place] [address] 72299- 6450 Apr, Muscle spasms of both lower extremities M62.838 and Cellulitis, unspecified cellulitis site L03.90 [facility] [address] [address] [id number] [address]- 2925 Apr, [facility] [address] [place] [address] 06957- 6790 23 Mar, 2016 Generalized abdominal pain R10.84 [facility] [address] [place] [address] 20274- 2756 20 Mar, 2016 [facility] [address] [address]- 8864 14 Mar, 2016 [facility] [id number] [address]- 2886 14 Mar, 2015 [facility] [address] [facility] [id number] [place] [address]- 6625 13 Mar, 2016 [facility] [id number] [place] [address] 64949- 1336 12 Mar, 2016 [facility] [id number] [place] [address] 63243- 3837 09 Mar, 2016 [facility] [id number] [place] [address] 64767- 9699 06 Mar, 2016 [facility] [id number] [place] [address] 03505- 6274 Feb, Other specified diseases of anus and rectum K62.89 [facility] [address] [place] [address] 79915- 8544 Feb, [facility] [id number] [place] [address] 60088- 1144 Feb, Dizziness R42 [facility] [id number] [place] [address] 75014- 7356 Feb, [facility] [id number] [place] [address] 25251- 0043 Jan, Polyneuropathy G62.9 [facility] [id number] [place] [address] 91739- 1492 Jan, Other specified diseases of anus and rectum K62.89 [facility] [id number] [address]- 4827 Jan, [facility] [id number] [place] [address] 81729 -4065 Jan, [facility] [address] [address]- 2105 Jan, [facility] [id number] [place] [address] 83061- 4097 Jan, Dizziness R42 [facility] [address] [facility] [id number] [place] [address]- 0672 Dec, [facility] [address] [facility] [id number] [place] [address]- 7386 Dec, [facility] [id number] [place] [address]- 8776 Dec, [facility] [address] [facility] [id number] [place] [address], [place] [address]- 9364 Dec, Dizziness R42 [facility] [address] [facility] [id number] [place] [address], [place] [address]- 6741 November, [facility] [address] [place] [address] [id number] [place] [address], [place] [address]- 9049 Oct, [facility] [id number] [place] [address], [place] [address]- 1331 Oct, [facility] [id number] [place] [address]- 8997 Oct, [facility] [id number] [place] [address]- 9092 Oct, [facility] [id number] [place] [address]- 6807 Sep, [facility] [id number] [place] [address]- 3594 Sep, Primary insomnia F51.01 [facility] [id number] [place] [address]- 6212 Sep, Primary insomnia F51.01 [facility] [place] [facility] [id number] [place] [address]- 9884 Sep, [facility] [place] [facility] [id number]- 1576 Aug, [facility] [id number] [place] [address]- 0689 Aug, [facility] [id number] [place] [address] 76675- 8407 Aug, Primary insomnia F51.01 ; Mood disorder F39 ; Nausea and vomiting, unspecified intactability, vomiting of unspecified type R11.2 and Diarrhea R19.7 [facility] [id number] [place] [address] 89355- 2756 Aug, [facility] [id number] [place] [address] 21271- 8743 Aug, Folliculitis L73.9 [facility] [id number] [place] [address] 68742- 8342 Aug, [facility] [id number] [place] [address] 38868- 4001 Aug, [facility] [address] 98488- 4098 Jul, Folliculitis L73.9 [facility] [id number] [place] [address] 19574- 6874 Jul, [facility] [id number] [place] [address] 97479- 3141 Jun, Folliculitis L73.9 [facility] [id number] [place] [address] 96595- 1186 Jun, [facility] [id number] [place] [address] 77328- 0581 May, Polyneuropathy G62.9 [facility] [id number] [place] [address] 48327- 5538 May, Other specified diseases of anus and rectum K62.89 [facility] [id number] [place] [address] 10434- 4549 May, [facility] [id number] [place] [address] 56311- 7491 May, Primary insomnia F51.01 [facility] [address] [address]- 0441 May, [facility] [id number] [place] [address] 83479- 1772 May, [facility] [address] [address]- 5159 Apr, Other specified diseases of anus and rectum K62.89 ; Chronic fatigue R53.82 ; Urinary tract infection, site not specified N39.0 and Enterococcus as the cause of diseases classified elsewhere B95.2 [facility] [id number] [place] [address] 59143- 7858 16 Apr, 2015 [facility] [id number] [place] [address] 16851- 2878 15 Apr, 2015 [facility] [id number] [place] [address] 56906- 2628 Apr, 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 [facility] [address] [address]- 8783 05 Apr, 2015 [facility] [id number] [place] [address] 03643- 4377 26 Mar, 2015 [facility] [address] [address]- 5678 23 Mar, 2015 [facility] [id number] [place] [address] 05636- 5490 17 Mar, 2015 [facility] [id number] [address]- 5409 14 Mar, 2015 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 [address] [facility] [id number] [place] [address]- 2138 Mar, [facility] [place] [facility] [address] [facility] [id number] [place] [address] 2545 Feb, [facility] [address] [facility] [id number] [place] [address]- 9190 Feb, [facility] [place] [facility] [address] [facility] [id number] [place] [address] 254 Feb, [facility] [address] [facility] [id number] [place] [address] 76242- 4410 Jan, [facility] [place] [facility] [id number] [address]- 2122 Jan, Nausea 787.02 and Neuropathy 355.9 [facility] [id number] [address]- 2323 Jan, [facility] [id number] [address]- 3394 Jan, [facility] [id number] [address]- 7266 Jan, [facility] [id number] [id number] Jan, Dental examination V72.2 [facility] [id number] [address] Jan, [facility] [place] [facility] [address] [facility] [id number] [address] Dec, [facility] [place] [facility] [id number] [address] Dec, [facility] [place] [facility] [address] [id number] [address] Dec, Neuropathy 355.9 [facility] [place] [facility] [id number] [place] [address] November, [facility] [place] [facility] [address] [id number] [place] [address] November, [facility] [place] [facility] [address] [id number] [place] [address] November, [facility] [place] [facility] [address] [id number] [place] [address] Oct, [facility] [place] [facility] [address] [id number] [place] [address] Oct, [facility] [place] [facility] [address] [id number] [place] [address] Sep, [facility] [place] [facility] [address] [id number] [place] [address] Sep, [facility] [place] [facility] [address] [id number] [place] [address] Sep, [facility] [place] [facility] [address] [id number] [place] [address] Sep, [facility] [place] [facility] [address] [id number] [place] [address] Sep, [facility] [place] [facility] [address] [facility] [id number] [place] [address] Sep, [facility] [place] [facility] [address] [id number] [place] [address] Sep, [facility] [place] [facility] [address] [id number] [place] [address] Sep, [facility] [place] [facility] [address] [id number] [place] [address] Aug, [facility] [place] [facility] [address] [id number] [place] [address] Aug, [facility] [place] [facility] [address] [id number] [place] [address] Aug, [facility] [place] [facility] [address] [id number] [place] [address] Aug, 2014 [facility] [place] [facility] [address] [id number] [place] [address] Aug, 2014 [facility] [place] [facility] [address] [id number] [place] [address] Aug, 2014 [facility] [place] [facility] [address] [id number] [place] [address] Aug, 2014 [facility] [place] [facility] [address] [id number] [place] [address] Aug, [facility] [place] [facility] [address] [id number] [place] [address] Jul, [facility] [place] [facility] [address] [id number] [place] [address] Jul, [facility] [place] [facility] [address] [id number] [place] [address] Jun, [facility] [place] [facility] [address] [id number] [place] [address] Jun, [facility] [place] [facility] [address] [id number] [place] [address] Jun, [facility] [place] [facility] [address] [id number] [place] [address] Jun, [facility] [place] [facility] [address] [id number] [place] [address] Jun, [facility] [place] [facility] [address] [id number] [place] [address] Jun, [facility] [place] [facility] [address] [id number] [place] [address] Jun, [facility] [place] [facility] [address] [id number] [place] [address] Jun, [facility] [place] [facility] [address] [id number] [place] [address] Jun, [facility] [place] [facility] [address] [id number] [place] [address] Jun, [facility] [place] [facility] [address] [id number] [place] [address]- [address] Jun, [facility] [place] [facility] [address] [id number] [place] [address] May, [facility] [place] [facility] [address] [id number] [place] [address] May, [facility] [place] [facility] [address] [id number] [place] [address] May, [facility] [place] [facility] [address] [id number] [place] [address] May, [facility] [place] [facility] [address] [id number] [place] [address] May, [facility] [place] [facility] [address] [id number] [place] [address] May, [facility] [place] [facility] [address] [id number] [place] [address] 1476 May, [facility] [place] [facility] [address] [facility] [id number] [place] [address] May, [facility] [place] [facility] [address] [id number] [place] [address] May, [facility] [place] [facility] [address] [id number] [place] [address] Apr, [facility] [place] [facility] [address] [id number] [place] [address] 1176 Apr, [facility] [place] [facility] [address] [id number] [place] [address] Apr, [facility] [place] [facility] [address] [facility] [id number] [place] [address]99 Apr, [facility] [place] [facility] [address] [id number] [place] [address] Apr, [facility] [place] [facility] [address] [id number] [place] [address] 47[address] Mar, [facility] [place] [facility] [address] [id number] [place] [address] 8088 Mar, [facility] [place] [facility] [address] [id number] [place] [address] Feb, [facility] [place] [facility] [address] [id number] [place] [address] 35[address] Feb, [facility] [place] [facility] [address] [id number] [place] [address] 7233 Feb, [facility] [place] [facility] [address] [id number] [place] [address] 7880 Feb, [facility] [place] [facility] [address] [id number] [place] [address]136 Feb, [facility] [place] [facility] [address] [id number] [place] [address]243 Feb, [facility] [place] [facility] [address] [id number] [place] [address] 2761 Jan, [facility] [place] [facility] [address] [id number] [place] [address] 8336 Jan, [facility] [place] [facility] [address] [id number] [place] [address] 1820 Jan, [facility] [place] [facility] [address] [id number] [place] [address]666 Jan, [facility] [place] [facility] [address] [id number] [place] [address] 8983 Jan, [facility] [place] [facility] [address] [id number] [place] [address]- 0351 Jan, [facility] [place] [facility] [address] [id number] [place] [address]- 8581 Jan, [facility] [place] [facility] [address] [id number] [place] [address] 8957 Jan, [facility] [place] [facility] [address] [id number] [place] [address] 0253 Jan, [facility] [place] [facility] [address] [id number] [place] [address]- 5464 Jan, [facility] [place] [facility] [address] [id number] [place] [address] 1181 Jan, [facility] [place] [facility] [address] [id number] [place] [address]641 Dec, [facility] [place] [facility] [address] [id number] [place] [address]- 1686 Dec, [facility] [place] [facility] [address] [id number] [place] [address] 6759 Dec, [facility] [place] [facility] [address] [id number] [place] [address] 2019 Dec, [facility] [place] [facility] [address] [id number] [place] [address]- 1361 Dec, [facility] [place] [facility] [address] [id number] [place] [address]- 6100 Dec, [facility] [place] [facility] [address] [id number] [place] [address] 4569 November, [facility] [place] [facility] [address] [id number] [place] [address] 7357 November, [facility] [place] [facility] [address] [id number] [place] [address] 7203 November, [facility] [place] [facility] [address] [id number] [place] [address]- 4393 November, [facility] [place] [facility] [address] [id number] [place] [address] 1553 November, [facility] [place] [facility] [address] [id number] [place] [address]- 2442 November, [facility] [address] [id number] [place] [address] 1131 Oct, [facility] [address] [id number] [place] [address] 6498 Oct, [facility] [address] [id number] [place] [address]- 5550 Oct, [facility] [address] [id number] [place] [address] 3475 Oct, [facility] [address] [id number] [place] [address] Sep, [facility] [address] [id number] [place] [address]- 8844 Sep, [facility] [address] [id number] [place] [address]- 9936 Sep, [facility] [address] [id number] [place] [address]- 3276 Sep, [facility] [address] [id number] [place] [address]- 6563 Sep, [facility] [address] [id number] [place] [address] 3[address] Aug, [facility] [address] [id number] [place] [address] 9955 Aug, [facility] [address] [id number] [place] [address]- 4880 Aug, [facility] [address] [id number] [place] [address] 2444 Aug, [facility] [address] [id number] [place] [address]- 3731 14 Aug, 2013 [facility] [address] [place] [id number] May, [facility] [place] [facility] [address] [id number] [place] [address] 6318 May, [facility] [place] [facility] [address] [id number] [place] [address] May, [facility] [place] [facility] [address] [id number] [place] [address]- 4938 May, [facility] [place] [facility] [address] [id number] [place] [address]- 8139 May, [facility] [place] [facility] [address] [id number] [place] [address]- 7659 Apr, [facility] [place] [facility] [address] [id number] [place] [address]- 3628 Apr, [facility] [place] [facility] [address] [id number] [place] [address]- 0381 Apr, [facility] [place] [facility] [address] [id number] [place] [address]- 5741 Apr, [facility] [place] [facility] [address] [id number] [place] [address]- 7431 Apr, [facility] [place] [facility] [address] [id number] [place] [address]- 7146 Apr, [facility] [place] [facility] [address] [id number] [place] [address]- 3447 Apr, [facility] [place] [facility] [address] [id number] [address]1 28 Mar, 2013 [facility] [place] [facility] [address] [id number] [place] [address]- 4775 25 Mar, 2013 [facility] [place] [facility] [address] [id number] [place] [address]- 7507 24 Mar, 2013 [facility] [place] [facility] [address] [id number] [place] [address]- 6271 16 Mar, 2013 [facility] [place] [facility] [address] [id number] [place] [address]- 0525 Mar, [facility] [place] [facility] [address] [id number] [place] [address]- 2277 Mar, [facility] [place] [facility] [address] [id number] [place] [address]- 2733 Feb, [facility] [place] [facility] [address] [id number] [place] [address]- 2429 Feb, [facility] [place] [facility] [address] [id number] [place] [address]- 4940 Feb, [facility] [place] [facility] [address] [id number] [place] [address]- 4748 Feb, [facility] [place] [facility] [address] [id number] [place] [address]- 3401 Feb, [facility] [place] [facility] [address] [id number] [place] [address]- 5985 Feb, [facility] [place] [facility] [address] [id number] [place] [address]- 3440 Jan, [facility] [place] [facility] [address] [id number] [place] [address]- 8880 Dec, [facility] [place] [facility] [address] [id number] [place] [address]- 0988 Dec, [facility] [place] [facility] [address] [id number] [place] [address]- 5704 Dec, [facility] [place] [facility] [address] [id number] [place] [address]- 1520 Dec, [facility] [place] [facility] [address] [id number] [place] [address]- 7160 Dec, [facility] [place] [facility] [address] [id number] [place] [address]- 8349 Dec, [facility] [place] [facility] [address] [id number] [place] [address]- 0399 Dec, [facility] [place] [facility] [address] [id number] [place] [address]- 5436 Dec, [facility] [address] [id number] [place] [address]- 9567 Dec, [facility] [address] [id number] [place] [address] 2546 November, [facility] [address] [id number] [place] [address]- 1266 November, [facility] [address] [id number] [place] [address]- 7807 Oct, [facility] [address] [id number] [place] [address]- 1032 Sep, [facility] [address] [id number] [place] [address]- 3386 Sep, [facility] [address] [id number] [place] [address]- 5881 Sep, [facility] [address] [id number] [place] [address]- 4749 Sep, [facility] [address] [id number] [place] [address]- 2881 Aug, [facility] [address] [id number] [place] [address]- 1991 Aug, [facility] [address] [id number] [place] [address]- 9204 Jul, [facility] [address] [id number] [place] [address]- 9912 Jul, [facility] [address] [id number] [place] [address]- 9076 Jul, [facility] [address] [id number] [place] [address] 2546 Sep, [facility] [address] [id number] [place] [address]- 0566 Sep, [facility] [address] [facility] [id number] [place] [address]- 0746 Sep, IMMUNIZATIONS No Known Immunizations SOCIAL HISTORY Never Assessed REASON FOR VISIT Controlled Med Refill PLAN OF CARE VITAL SIGNS MEDICATIONS Medication Instructions Dosage Frequency Start Date End Date Duration Status Oxycodone HCl 30 MG Orally 2 times a day 1 tablet as needed 12h Oct, 28 days Active Percocet 10-325 MG Orally every 4 hrs 1 tablet 4h Oct, 28 days Active RESULTS No Results PROCEDURES [...] AMS-VC 09/21/16 Hospitalization History Large bowel obstruction, Dehydration-[facility] 01/01/17 Hospitalization History [facility]- UTI/Sepsis 01/18/2018
--- OUTSIDE RECORDS SUMMARY | 2018-06-09 17:22 | XMS REPORT ---
Author Author LINDA BENTLEY Organization [facility] Address [address] [place] [address] Care Team Providers Care Manager Of Network Name Role Phone LINDA BENTLEY Unavailable PROBLEMS Type Condition ICD9-CM Code OXT37-JN Code Onset Dates Condition Status SNOMED Code Problem Abdominal pain, left lower quadrant R10.32 Active 680275317 Problem Mood disorder F39 Active 51712886 Problem Hypertension, benign I10 Active 76017376 Problem Chronic pain syndrome G89.4 Active 370057040 Problem Attention to urostomy Z43.6 Active 422888454 Problem Anxiety F41.9 Active 68074190 Problem Neuropathy G62.9 Active 419051340 Problem Malignant neoplasm of colon, unspecified part of colon C18.9 Active 074671614 Problem Polyneuropathy G62.9 Active 28052783 Problem Incontinence of feces, unspecified fecal incontinence type R15.9 Active 40439942 Problem Chronic fatigue, unspecified R53.82 Active 781187437 Problem Hydronephrosis with ureteral stricture, not elsewhere classified N13.1 Active 51003044 Problem Primary insomnia F51.01 Active 424721680 Problem 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 306435241 ALLERGIES No Information ENCOUNTERS Encounter Location Date Diagnosis [place] [id number] [place] [address] 98985- 3196 Feb, [place] [id number] [place] [address] 17482- 3229 Jan, Hypertension, benign I10 and Polyneuropathy G62.9 [place] [id number] [place] [address] 61385- 8151 Jan, Hypertension, benign I10 and Neuropathy G62.9 [place] [address] [place] [id number] [place] [address] 44717- 0881 Jan, [place] [address] [address]- 2484 Dec, Polyneuropathy G62.9 [facility] [id number] [place] [address] 56654- 9632 Dec, Mood disorder F39 [facility] [id number] [place] [address] 28568- 0960 November, Polyneuropathy G62.9 [facility] [id number] [place] [address] 28822- 5080 November, Medicare annual wellness visit, initial Z00.00 [facility] [id number] [place] [address] 08509- 7012 November, Mood disorder F39 [facility] [id number] [place] [address] 73781- 3503 Oct, Polyneuropathy G62.9 [facility] [id number] [place] [address] 71557- 4170 Oct, [facility] [id number] [place] [address] 42882- 4779 Oct, [facility] [id number] [place] [address] 89891- 8388 Oct, Mood disorder F39 ; Attention to urostomy Z43.6 ; Chronic pain syndrome G89.4 and Polyneuropathy G62.9 [facility] [id number] [place] [address] 73141- 4390 Sep, Polyneuropathy G62.9 [facility] [address] [address]- 5161 Sep, [facility] [id number] [place] [address] 68232- 4268 Sep, Polyneuropathy G62.9 [facility] [address] [address]- 0410 Aug, Polyneuropathy G62.9 [facility] [id number] [place] [address] 93494- 9151 Aug, Malignant neoplasm of colon, unspecified part of colon C18.9 and Polyneuropathy G62.9 [facility] [id number] [place] [address] 62429- 6884 Aug, Neuropathy G62.9 and Polyneuropathy G62.9 [facility] [id number] [place] [address] 58344- 1480 Jul, Encounter for drug screening Z02.83 [facility] [id number] [place] [address] 13591- 2874 Jul, Polyneuropathy G62.9 [facility] [id number] [place] [address] 16456- 0639 Jul, [facility] [address] 80496- 8604 Jul, Neuropathy G62.9 and Anxiety F41.9 [facility] [id number] [place] [address] 69818- 0457 Jul, [facility] [id number] [place] [address] 90180- 5852 Jul, [facility] [id number] [place] [address] 60899- 5787 Jul, [facility] [id number] [place] [address] 83825- 9145 Jul, Polyneuropathy G62.9 [facility] [id number] [place] [address] 27354- 8941 Jul, [facility] [id number] [place] [address] 76858- 2745 Jun, [facility] [id number] [place] [address] 07647- 7318 Jun, [facility] [address] [place] [address]- 7331 07 Jun, 2017 [facility] [address] [place] [id number] [address] Jun, Encounter for dental examination Z01.20 [facility] [id number] [place] [address] 52361- 2195 Jun, Polyneuropathy G62.9 and Anxiety F41.9 [facility] [address] [place] [address] [id number] [place] [address] 45857- 1723 Jun, [facility] [id number] [place] [address] May, Dental examination Z01.20 [facility] [id number] [place] [address] 58916- 5742 May, Polyneuropathy G62.9 [facility] [address] 88343- 8903 Apr, Polyneuropathy G62.9 [facility] [id number] [place] [address] 79367- 4477 Apr, Polyneuropathy G62.9 [facility] [address] [place] [id number] [place] [address] 52814- 3759 Apr, Hypertension, benign I10 ; Polyneuropathy G62.9 and Anxiety F41.9 [facility] [id number] [place] [address] 38861- 1764 Apr, Primary insomnia F51.01 and Polyneuropathy G62.9 [facility] [id number] [place] [address] 51761- 5226 Apr, Primary insomnia F51.01 and Polyneuropathy G62.9 [facility] [id number] [place] [address] 75306- 1397 Mar, Primary insomnia F51.01 [facility] [id number] [place] [address] 48480- 5259 Mar, [facility] [address] [facility] [id number] [address]- 6620 Mar, Polyneuropathy G62.9 [facility] [id number] [place] [address] 14638- 0890 Feb, Primary insomnia F51.01 [facility] [id number] [place] [address] 60790- 4676 Feb, [facility] [id number] [place] [address] 61821- 3407 Feb, [facility] [address] [address] [id number] [place] [address] 23406- 1060 Feb, Polyneuropathy G62.9 [facility] [address] [id number] [place] [address] 03430- 9920 Feb, Primary insomnia F51.01 [facility] [address] [place] [id number] [place] [address] 35365- 6078 Jan, [facility] [id number] [place] [address] 08819- 3932 Jan, [facility] [id number] [place] [address] 81935- 1162 Dec, [facility] [address] [address] [id number] [address]- 5579 Dec, Primary insomnia F51.01 [facility] [place] [facility] [id number] [place] [address] 07474- 7384 Dec, Primary insomnia F51.01 [facility] [place] [facility] [address] [id number] [place] [address] 83561- 5442 Dec, [facility] [place] [facility] [address] [id number] [place] [address] 29197- 4084 Dec, [facility] [place] [facility] [address], [place] [address]- 3814 Dec, [facility] [address], [place] [address]- 2064 Dec, [facility] [address] [id number] [place] [address] 08725- 7977 November, Primary insomnia F51.01 and Polyneuropathy G62.9 [facility] [id number] [place] [address] 89965- 3786 November, [facility] [id number] [place] [address] 72106- 9882 November, Abdominal pain, left lower quadrant R10.32 [facility] [id number] [place] [address] 74755- 6759 November, [facility] [id number] [place] [address] 02589- 6914 Oct, [facility] [id number] [place] [address] 81682- 9676 Oct, Abdominal pain, left lower quadrant R10.32 ; 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 and Neuropathy G62.9 [facility] [id number] [place] [address] 89962- 7247 Oct, [facility] [address], [place] [address]- 6518 Sep, [facility] [address] [id number] [place] [address] [id number] Sep, [facility] [address] [address]- 8515 Sep, [facility] [id number] [place] [address] 17735- 5205 Aug, [facility] [address] [id number] [place] [address] 13970- 7773 Aug, [facility] [address], [place] [address]- 8779 Aug, Abdominal pain, left lower quadrant R10.32 ; Neuropathy G62.9 and Anxiety F41.9 [facility] [address] [facility] [place] [address] Jul, [facility] [id number] [place] [address] 89845- 9267 Jul, [facility] [id number] [place] [address] 27736 -8982 Jul, [facility] [id number] [place] [address] 92064- 7518 Jul, [facility] [id number] [place] [address] 38958- 1274 Jul, [facility] [address] [id number] [place] [address] 98819- 7395 Jun, [facility] [id number] [place] [address] 64445- 7825 May, [facility] [id number] [place] [address] 12781- 0048 May, [facility] [id number] [place] [address] 76419- 8146 Apr, [facility] [id number] [place] [address] 10642- 0163 Apr, Muscle spasms of both lower extremities M62.838 and Cellulitis, unspecified cellulitis site L03.90 [facility] [address] [address] [id number] [address]- 5590 Apr, [facility] [id number] [place] [address] 11004- 4052 23 Mar, 2016 Generalized abdominal pain R10.84 [facility] [id number] [place] [address] 81849- 5060 20 Mar, 2016 [facility] [address], [place] [address]- 5173 14 Mar, 2016 [facility] [address], [place] [address]- 9278 14 Mar, 2015 [facility] [address] [facility] [id number] [place] [address]- 1781 13 Mar, 2016 [facility] [id number] [place] [address] 34118- 9986 12 Mar, 2016 [facility] [id number] [place] [address] 89851- 3413 09 Mar, 2016 [facility] [id number] [place] [address] 97193- 0908 06 Mar, 2016 [facility] [id number] [place] [address] 01152- 2737 Feb, Other specified diseases of anus and rectum K62.89 [facility] [id number] [place] [address] 13057- 7216 Feb, [facility] [id number] [place] [address] 32377- 0956 Feb, Dizziness R42 [facility] [id number] [place] [address] 54739- 3238 Feb, [facility] [id number] [place] [address] 13501- 2510 Jan, Polyneuropathy G62.9 [facility] [id number] [place] [address] 25363- 6666 Jan, Other specified diseases of anus and rectum K62.89 [facility] [address] [address]- 3961 Jan, [facility] [id number] [place] [address] 08815 -5396 Jan, [facility] [address], [place] [address]- 8412 Jan, [facility] [id number] [place] [address] 26943- 2918 Jan, Dizziness R42 [facility] [address] [facility] [id number] [place] [address]- 4111 Dec, [facility] [address] [facility] [id number] [place] [address]- 1506 Dec, [facility] [address] [place] [address]- 4056 Dec, [facility] [address] [facility] [id number] [place] [address], [place] [address]- 3284 Dec, Dizziness R42 [facility] [address] [facility] [id number] [place] [address], [place] [address]- 3122 November, [facility] [address] [place] [id number] [place] [address], [place] [address]- 1490 Oct, [facility] [id number] [place] [address], [place] [address]- 1619 Oct, [facility] [address] [place] [address]- 0078 Oct, [facility] [address] [place] [address]- 8826 Oct, [facility] [address] [place] [address]- 7425 Sep, [facility] [address] [place] [address]- 1202 Sep, Primary insomnia F51.01 [facility] [address] [place] [address]- 4704 Sep, Primary insomnia F51.01 [facility] [place] [facility] [address] [place] [address]- 1296 Sep, [facility] [place] [facility] [address]- 3606 Aug, [facility] [address] [place] [address]- 1092 Aug, [facility] [id number] [place] [address] 82707- 3139 Aug, Primary insomnia F51.01 ; Mood disorder F39 ; Nausea and vomiting, unspecified intactability, vomiting of unspecified type R11.2 and Diarrhea R19.7 [facility] [id number] [place] [address] 76156- 1664 Aug, [facility] [id number] [place] [address] 94196- 5468 Aug, Folliculitis L73.9 [facility] [id number] [place] [address] 01888- 2603 Aug, [facility] [id number] [place] [address] 76062- 8053 Aug, [facility] [address] 97445- 2484 Jul, Folliculitis L73.9 [facility] [id number] [place] [address] 02472- 1399 Jul, [facility] [id number] [place] [address] 45477- 7293 Jun, Folliculitis L73.9 [facility] [id number] [place] [address] 77993- 1857 Jun, [facility] [id number] [place] [address] 08295- 0248 May, Polyneuropathy G62.9 [facility] [id number] [place] [address] 72801- 8335 May, Other specified diseases of anus and rectum K62.89 [facility] [id number] [place] [address] 97294- 5107 May, [facility] [id number] [place] [address] 16360- 5100 May, Primary insomnia F51.01 [facility] [address], [place] [address]- 4270 May, [facility] [id number] [place] [address] 06270- 4647 May, [facility] [address], [place] [address]- 3388 Apr, Other specified diseases of anus and rectum K62.89 ; Chronic fatigue R53.82 ; Urinary tract infection, site not specified N39.0 and Enterococcus as the cause of diseases classified elsewhere B95.2 [facility] [id number] [place] [address] 47128- 0454 16 Apr, 2015 [facility] [id number] [place] [address] 07610- 8713 15 Apr, 2015 [facility] [id number] [place] [address] 86662- 2780 Apr, 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 [facility] [address], [place] [address]- 8553 05 Apr, 2015 [facility] [id number] [place] [address] 15510- 5671 26 Mar, 2015 [facility] [address], [place] [address]- 1347 23 Mar, 2015 [facility] [id number] [place] [address] 42511- 8499 17 Mar, 2015 [facility] [address], [place] [address]- 1258 14 Mar, 2015 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 [facility] [id number] [place] [address] 76595- 5988 12 Mar, 2015 [facility] [address], [place] [address]- 4601 11 Mar, 2015 [facility] [id number], [place] [address]- 7796 Mar, [facility] [address] [facility] [id number], [place] [address]- 3057 Mar, [facility] [place] [facility] [address] [facility] [id number] [address] 2542 Feb, [facility] [address] [facility] [id number], [place] [address]- 7604 Feb, [facility] [place] [facility] [address] [facility] [id number], [place] [address] 2542 Feb, [facility] [address] [facility] [id number] [place] [address] 67959- 5475 Jan, [facility] [place] [facility] [address], [place] [address]- 8264 Jan, Nausea 787.02 and Neuropathy 355.9 [facility] [id number], [place] [address] Jan, [facility] [id number], [place] [address] Jan, [facility] [id number], [place] [address] Jan, [facility] [id number] [id number] Jan, Dental examination V72.2 [facility] [id number], [place] [address] Jan, [facility] [place] [facility] [address] [facility] [id number] [address] Dec, [facility] [place] [facility] [id number] [address] Dec, [facility] [place] [facility] [id number], [place] [address] Dec, Neuropathy 355.9 [facility] [place] [facility] [id number] [place] [address] November, [facility] [place] [facility] [address] [id number] [place] [address] November, [facility] [place] [facility] [address] [id number] [place] [address] November, [facility] [place] [facility] [address] [id number] [place] [address] Oct, [facility] [place] [facility] [address] [id number] [place] [address] Oct, [facility] [place] [facility] [address] [id number] [place] [address] Sep, [facility] [place] [facility] [address] [id number] [place] [address] Sep, [facility] [place] [facility] [address] [id number] [place] [address] Sep, [facility] [place] [facility] [address] [id number] [place] [address] Sep, [facility] [place] [facility] [address] [id number] [place] [address] Sep, [facility] [place] [facility] [address] [facility] [id number] [place] [address] Sep, [facility] [place] [facility] [address] [id number] [place] [address] Sep, [facility] [place] [facility] [address] [id number] [place] [address]- [address] Sep, [facility] [place] [facility] [address] [id number] [place] [address] Aug, [facility] [place] [facility] [address] [id number] [place] [address]- [address] Aug, [facility] [place] [facility] [address] [id number] [place] [address] Aug, [facility] [place] [facility] [address] [id number] [place] [address] Aug, 2014 [facility] [place] [facility] [address] [id number] [place] [address] Aug, 2014 [facility] [place] [facility] [address] [id number] [place] [address] Aug, 2014 [facility] [place] [facility] [address] [id number] [place] [address] Aug, 2014 [facility] [place] [facility] [address] [id number] [place] [address] Aug, [facility] [place] [facility] [address] [id number] [place] [address] Jul, [facility] [place] [facility] [address] [id number] [place] [address] Jul, [facility] [place] [facility] [address] [id number] [place] [address] Jun, [facility] [place] [facility] [address] [id number] [place] [address] Jun, [facility] [place] [facility] [address] [id number] [place] [address]- [address] Jun, [facility] [place] [facility] [address] [id number] [place] [address]- [address] Jun, [facility] [place] [facility] [address] [id number] [place] [address] Jun, [facility] [place] [facility] [address] [id number] [place] [address] Jun, [facility] [place] [facility] [address] [id number] [place] [address] Jun, [facility] [place] [facility] [address] [id number] [place] [address] Jun, [facility] [place] [facility] [address] [id number] [place] [address] Jun, [facility] [place] [facility] [address] [id number] [place] [address] Jun, [facility] [place] [facility] [address] [id number] [place] [address] Jun, [facility] [place] [facility] [address] [id number] [place] [address] May, [facility] [place] [facility] [address] [id number] [place] [address] May, [facility] [place] [facility] [address] [id number] [place] [address]283 May, [facility] [place] [facility] [address] [id number] [place] [address] May, [facility] [place] [facility] [address] [id number] [place] [address] May, [facility] [place] [facility] [address] [id number] [place] [address] May, [facility] [place] [facility] [address] [id number] [place] [address] May, [facility] [place] [facility] [address] [facility] [id number] [place] [address] 9514 May, [facility] [place] [facility] [address] [id number] [place] [address] 9669 May, [facility] [place] [facility] [address] [id number] [place] [address] 84[address] Apr, [facility] [place] [facility] [address] [id number] [place] [address]- 385[address] Apr, [facility] [place] [facility] [address] [id number] [place] [address] 7331 Apr, [facility] [place] [facility] [address] [facility] [id number] [place] [address] 9[address] Apr, [facility] [place] [facility] [address] [id number] [place] [address] Apr, [facility] [place] [facility] [address] [id number] [place] [address] Mar, [facility] [place] [facility] [address] [id number] [place] [address] Mar, [facility] [place] [facility] [address] [id number] [place] [address] 27[address] Feb, [facility] [place] [facility] [address] [id number] [place] [address]- 46[address] Feb, [facility] [place] [facility] [address] [id number] [place] [address]- 2656 Feb, [facility] [place] [facility] [address] [id number] [place] [address] 9464 Feb, [facility] [place] [facility] [address] [id number] [place] [address] 265[address] Feb, [facility] [place] [facility] [address] [id number] [place] [address]- 12[address] Feb, [facility] [place] [facility] [address] [id number] [place] [address]- 3256 Jan, [facility] [place] [facility] [address] [id number] [place] [address]244 Jan, [facility] [place] [facility] [address] [id number] [place] [address]- 7618 Jan, [facility] [place] [facility] [address] [id number] [place] [address]- [address] Jan, [facility] [place] [facility] [address] [id number] [place] [address]- 7979 Jan, [facility] [place] [facility] [address] [id number] [place] [address]- 1195 Jan, [facility] [place] [facility] [address] [id number] [place] [address]- 2523 Jan, [facility] [place] [facility] [address] [id number] [place] [address]287 Jan, [facility] [place] [facility] [address] [id number] [place] [address] 5[address] Jan, [facility] [place] [facility] [address] [id number] [place] [address] 1197 Jan, [facility] [place] [facility] [address] [id number] [place] [address]- 7690 Jan, [facility] [place] [facility] [address] [id number] [place] [address] Dec, [facility] [place] [facility] [address] [id number] [place] [address]- 7466 Dec, [facility] [place] [facility] [address] [id number] [place] [address] 0995 Dec, [facility] [place] [facility] [address] [id number] [place] [address]- 4996 Dec, [facility] [place] [facility] [address] [id number] [place] [address]- 8820 Dec, [facility] [place] [facility] [address] [id number] [place] [address]- 7301 Dec, [facility] [place] [facility] [address] [id number] [place] [address]- 7494 November, [facility] [place] [facility] [address] [id number] [place] [address]- 5820 November, [facility] [place] [facility] [address] [id number] [place] [address]- 3708 November, [facility] [place] [facility] [address] [id number] [place] [address]- 4210 November, [facility] [place] [facility] [address] [id number] [place] [address]- 6677 November, [facility] [place] [facility] [address] [id number] [place] [address] 3296 November, [facility] [address] [id number] [place] [address]- 6430 Oct, [facility] [address] [id number] [place] [address] 5831 Oct, [facility] [address] [id number] [place] [address]- 8369 Oct, [facility] [address] [id number] [place] [address]- 1194 Oct, [facility] [address] [id number] [place] [address] 0337 Sep, [facility] [address] [id number] [place] [address]- 3092 Sep, [facility] [address] [id number] [place] [address]- 8753 Sep, [facility] [address] [id number] [place] [address]- 9878 Sep, [facility] [address] [id number] [place] [address] 50[address] Sep, [facility] [address] [id number] [place] [address] 8741 Aug, [facility] [address] [id number] [place] [address]- 8683 Aug, [facility] [address] [id number] [place] [address]- 7604 Aug, [facility] [address] [id number] [place] [address]- 7178 Aug, [facility] [address] [id number] [place] [address]- [address] 14 Aug, 2013 [facility] [address] [place] [id number] May, [facility] [place] [facility] [address] [id number] [place] [address]- 0268 May, [facility] [place] [facility] [address] [id number] [place] [address] May, [facility] [place] [facility] [address] [id number] [place] [address]- 5517 May, [facility] [place] [facility] [address] [id number] [place] [address]- 8327 May, [facility] [place] [facility] [address] [id number] [place] [address] Apr, [facility] [place] [facility] [address] [id number] [place] [address]- 6905 Apr, [facility] [place] [facility] [address] [id number] [place] [address]- 2010 Apr, [facility] [place] [facility] [address] [id number] [place] [address]- 5811 Apr, [facility] [place] [facility] [address] [id number] [place] [address]- 0804 Apr, [facility] [place] [facility] [address] [id number] [place] [address]- 1185 Apr, [facility] [place] [facility] [address] [id number] [place] [address]- 8837 Apr, [facility] [place] [facility] [address] [id number] [address] 28 Mar, 2013 [facility] [place] [facility] [address] [id number] [place] [address]- 6224 25 Mar, 2013 [facility] [place] [facility] [address] [id number] [place] [address]- 1391 24 Mar, 2013 [facility] [place] [facility] [address] [id number] [place] [address]- 3512 16 Mar, 2013 [facility] [place] [facility] [address] [id number] [place] [address]- 1859 Mar, [facility] [place] [facility] [address] [id number] [place] [address]- 7850 Mar, [facility] [place] [facility] [address] [id number] [place] [address]- 0756 Feb, [facility] [place] [facility] [address] [id number] [place] [address]- 5717 Feb, [facility] [place] [facility] [address] [id number] [place] [address]- 8612 Feb, [facility] [place] [facility] [address] [id number] [place] [address]- 5398 Feb, [facility] [place] [facility] [address] [id number] [place] [address]- 1106 Feb, [facility] [place] [facility] [address] [id number] [place] [address]- 7000 Feb, [facility] [place] [facility] [address] [id number] [place] [address]- 0606 Jan, [facility] [place] [facility] [address] [id number] [place] [address]- 5754 Dec, [facility] [place] [facility] [address] [id number] [place] [address]- 3551 Dec, [facility] [place] [facility] [address] [id number] [place] [address]- 2893 Dec, [facility] [place] [facility] [address] [id number] [place] [address]- 3046 Dec, [facility] [place] [facility] [address] [id number] [place] [address]- 9650 Dec, [facility] [place] [facility] [address] [id number] [place] [address]- 3901 Dec, [facility] [place] [facility] [address] [id number] [place] [address]- 2704 Dec, [facility] [place] [facility] [address] [id number] [place] [address]- 3386 Dec, [facility] [address] [id number] [place] [address]- 8952 Dec, [facility] [address] [id number] [place] [address] 2546 November, [facility] [address] [id number] [place] [address]- 5856 November, [facility] [address] [id number] [place] [address]- 6719 Oct, [facility] [address] [id number] [place] [address]- 1966 Sep, [facility] [address] [id number] [place] [address]- 5706 Sep, [facility] [address] [id number] [place] [address]- 3622 Sep, [facility] [address] [id number] [place] [address]- 2657 Sep, [facility] [address] [id number] [place] [address]- 4538 Aug, [facility] [address] [id number] [place] [address]- 1888 Aug, [facility] [address] [id number] [place] [address]- 8601 Jul, [facility] [address] [id number] [place] [address]- 1914 Jul, [facility] [address] [id number] [place] [address]- 2286 Jul, [facility] [address] [id number] [place] [address] 2546 Sep, [facility] [address] [id number] [place] [address]- 8246 Sep, [facility] [address] [facility] [id number] [place] [address]- [address] Sep, IMMUNIZATIONS No Known Immunizations SOCIAL HISTORY Never Assessed REASON FOR VISIT fluocinonide note PLAN OF CARE VITAL SIGNS MEDICATIONS Unknown [...] AMS-VC 09/21/16 Hospitalization History Large bowel obstruction, Dehydration-[facility] 01/01/17 Hospitalization History [facility]- UTI/Sepsis 01/18/2018
--- OUTSIDE RECORDS SUMMARY | 2018-06-09 17:23 | XMS REPORT ---
Author Author LINDA BENTLEY Organization [facility] Address [address] [place] [address] Care Team Providers Care Business Affairs Manager Name Role Phone LINDA BENTLEY Unavailable PROBLEMS Type Condition ICD9-CM Code JEO26-ZT Code Onset Dates Condition Status SNOMED Code Problem Abdominal pain, left lower quadrant R10.32 Active 222762633 Problem Mood disorder F39 Active 08165311 Problem Hypertension, benign I10 Active 02008855 Problem Chronic pain syndrome G89.4 Active 485941505 Problem Attention to urostomy Z43.6 Active 743901947 Problem Anxiety F41.9 Active 32401424 Problem Neuropathy G62.9 Active 811043679 Problem Malignant neoplasm of colon, unspecified part of colon C18.9 Active 071215992 Problem Polyneuropathy G62.9 Active 11670768 Problem Incontinence of feces, unspecified fecal incontinence type R15.9 Active 93367097 Problem Chronic fatigue, unspecified R53.82 Active 169111293 Problem Hydronephrosis with ureteral stricture, not elsewhere classified N13.1 Active 10546427 Problem Primary insomnia F51.01 Active 237497277 Problem 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 892411252 ALLERGIES No Information ENCOUNTERS Encounter Location Date Diagnosis [place] [id number] [place] [address] 76294- 3650 Feb, [place] [address] [place] [address] 58626- 7693 Jan, Hypertension, benign I10 and Polyneuropathy G62.9 [place] [id number] [place] [address] 79460- 9026 Jan, Hypertension, benign I10 and Neuropathy G62.9 [place] [address] [place] [id number] [place] [address] 42108- 0438 Jan, [place] [address] [address] 6817 Dec, Polyneuropathy G62.9 [facility] [address] [place] [id number] [place] [address] 06635- 5820 Dec, Mood disorder F39 [facility] [id number] [place] [address] 39243- 5629 November, Polyneuropathy G62.9 [facility] [address] [place] [id number] [place] [address] 26664- 5197 November, Medicare annual wellness visit, initial Z00.00 [facility] [address] [place] [id number] [place] [address] 02584- 6948 November, Mood disorder F39 [facility] [address] [id number] [place] [address] 31006- 8041 Oct, Polyneuropathy G62.9 [facility] [id number] [place] [address] 62362- 1991 Oct, [facility] [id number] [place] [address] 14827- 7487 Oct, [facility] [address] [id number] [place] [address] 31919- 9743 Oct, Mood disorder F39 ; Attention to urostomy Z43.6 ; Chronic pain syndrome G89.4 and Polyneuropathy G62.9 [facility] [id number] [place] [address] 10055- 1921 Sep, Polyneuropathy G62.9 [facility] [address] [address]- 8321 Sep, [facility] [address] [id number] [place] [address] 38803- 5857 Sep, Polyneuropathy G62.9 [facility] [address] [address]- 0556 Aug, Polyneuropathy G62.9 [facility] [address] [id number] [place] [address] 37154- 5634 Aug, Malignant neoplasm of colon, unspecified part of colon C18.9 and Polyneuropathy G62.9 [facility] [address] [id number] [place] [address] 43902- 3285 Aug, Neuropathy G62.9 and Polyneuropathy G62.9 [facility] [address] [id number] [place] [address] 33613- 5699 Jul, Encounter for drug screening Z02.83 [facility] [address] [id number] [place] [address] 33414- 3777 Jul, Polyneuropathy G62.9 [facility] [address] [id number] [place] [address] 12558- 5905 Jul, [facility] [address] 94933- 4135 Jul, Neuropathy G62.9 and Anxiety F41.9 [facility] [address] [id number] [place] [address] 48809- 9295 Jul, [facility] [address] [id number] [place] [address] 60740- 3308 Jul, [facility] [address] [id number] [place] [address] 50301- 0059 Jul, [facility] [address] [id number] [place] [address] 18640- 9732 Jul, Polyneuropathy G62.9 [facility] [address] [id number] [place] [address] 66215- 0051 Jul, [facility] [address] [address] [id number] [place] [address] 72828- 3673 Jun, [facility] [address] [address] [id number] [place] [address] 23183- 4793 Jun, [facility] [address] [place] [address]- 7564 07 Jun, 2017 [facility] [address] [id number] [address] Jun, Encounter for dental examination Z01.20 [facility] [address] [id number] [place] [address] 00784- 7547 Jun, Polyneuropathy G62.9 and Anxiety F41.9 [facility] [address] [place] [id number] [place] [address] 04261- 2941 Jun, [facility] [id number] [address] May, Dental examination Z01.20 [facility] [address] [place] [id number] [place] [address] 19072- 7171 May, Polyneuropathy G62.9 [facility] [address] 80261- 6604 Apr, Polyneuropathy G62.9 [facility] [address] [place] [id number] [place] [address] 12574- 6886 Apr, Polyneuropathy G62.9 [facility] [address] [place] [id number] [place] [address] 08548- 7853 Apr, Hypertension, benign I10 ; Polyneuropathy G62.9 and Anxiety F41.9 [facility] [address] [id number] [place] [address] 70752- 2349 Apr, Primary insomnia F51.01 and Polyneuropathy G62.9 [facility] [address] [id number] [place] [address] 37983- 9174 Apr, Primary insomnia F51.01 and Polyneuropathy G62.9 [facility] [address] [id number] [place] [address] 07432- 4173 Mar, Primary insomnia F51.01 [facility] [address] [id number] [place] [address] 46767- 1443 Mar, [facility] [address] [facility] [id number] [address]- 4300 Mar, Polyneuropathy G62.9 [facility] [address] [place] [id number] [place] [address] 13732- 1743 Feb, Primary insomnia F51.01 [facility] [address] [address] [id number] [place] [address] 80881- 8643 Feb, [facility] [address] [id number] [place] [address] 21437- 2902 Feb, [facility] [address] [place] [id number] [place] [address] 76126- 1090 Feb, Polyneuropathy G62.9 [facility] [address] [place] [id number] [place] [address] 86052- 3929 Feb, Primary insomnia F51.01 [facility] 234 BEDS AT [facility] [address] [place] [id number] [place] [address] 37052- 3763 Jan, [facility] [address] [place] [address] 50434- 4922 Jan, [facility] [address] [place] [address] 96365- 8719 Dec, [facility] 234 BEDS AT [facility] [address] [id number] [address]- 6349 Dec, Primary insomnia F51.01 [facility] [place] [facility] [address] [place] [address] 09012- 4641 Dec, Primary insomnia F51.01 [facility] [place] [facility] [address] [place] [id number] [place] [address] 37290- 0169 Dec, [facility] [place] [facility] [address] [place] [id number] [place] [address] 49251- 1101 Dec, [facility] [place] [facility] [address] [address]- 5667 Dec, [facility] [address] [address]- 7697 Dec, [facility] [address] [place] [id number] [place] [address] 75521- 9410 November, Primary insomnia F51.01 and Polyneuropathy G62.9 [facility] [address] [place] [id number] [place] [address] 37126- 4393 November, [facility] [address] [place] [id number] [place] [address] 74355- 7228 November, Abdominal pain, left lower quadrant R10.32 [facility] [address] [place] [id number] [place] [address] 05857- 2355 November, [facility] [address] [place] [id number] [place] [address] 36405- 8844 Oct, [facility] [address] [place] [id number] [place] [address] 95529- 8163 Oct, Abdominal pain, left lower quadrant R10.32 ; 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 and Neuropathy G62.9 [facility] [address] [place] [id number] [place] [address] 35569- 6473 Oct, [facility] [address] [address]- 5936 Sep, [facility] [address] [place] [id number] [place] [address] [id number] Sep, [facility] [address] [address]- 1933 Sep, [facility] [address] [place] [id number] [place] [address] 78875- 1024 Aug, [facility] [address] [place] [id number] [place] [address] 27523- 1303 Aug, [facility] [address] [address]- 5312 Aug, Abdominal pain, left lower quadrant R10.32 ; Neuropathy G62.9 and Anxiety F41.9 [facility] [address] [facility] [place] [address] Jul, [facility] [address] [place] [id number] [place] [address] 94267- 6535 Jul, [facility] [id number] [place] [address] 49183 -5460 Jul, [facility] [address] [place] [id number] [place] [address] 93539- 2650 Jul, [facility] [address] [place] [id number] [place] [address] 41309- 5462 Jul, [facility] [address] [place] [id number] [place] [address] 78326- 4368 Jun, [facility] [address] [place] [id number] [place] [address] 95595- 8562 May, [facility] [address] [place] [id number] [place] [address] 06877- 0695 May, [facility] [address] [place] [id number] [place] [address] 13482- 2785 Apr, [facility] [address] [place] [id number] [place] [address] 07015- 6841 Apr, Muscle spasms of both lower extremities M62.838 and Cellulitis, unspecified cellulitis site L03.90 [facility] [address] [id number] [address]- 7435 Apr, [facility] [address] [place] [address] 11491- 2587 23 Mar, 2016 Generalized abdominal pain R10.84 [facility] [address] [place] [address] 86967- 3696 20 Mar, 2016 [facility] [address] [address]- 8775 14 Mar, 2016 [facility] [address] [address]- 2255 14 Mar, 2015 [facility] [address] [facility] [id number] [place] [address]- 7396 13 Mar, 2016 [facility] [address] [place] [address] 47870- 8688 12 Mar, 2016 [facility] [address] [place] [id number] [place] [address] 21534- 6097 09 Mar, 2016 [facility] [address] [place] [id number] [place] [address] 65041- 5782 06 Mar, 2016 [facility] [address] [place] [id number] [place] [address] 46437- 8923 Feb, Other specified diseases of anus and rectum K62.89 [facility] [address] [place] [address] 85819- 4497 Feb, [facility] [address] [place] [id number] [place] [address] 10520- 4151 Feb, Dizziness R42 [facility] [address] [place] [address] 46749- 2995 Feb, [facility] [address] [place] [address] 53173- 9269 Jan, Polyneuropathy G62.9 [facility] [address] [place] [address] 21177- 4691 Jan, Other specified diseases of anus and rectum K62.89 [facility] [address] [address]- 0064 Jan, [facility] [id number] [place] [address] 25854 -3400 Jan, [facility] [address] [address]- 1541 Jan, [facility] [address] [place] [address] 31701- 0428 Jan, Dizziness R42 [facility] [address] [facility] [id number] [place] [address]- 3996 Dec, [facility] [address] [facility] [id number] [place] [address]- 2816 Dec, [facility] [address] [place] [address]- 7856 Dec, [facility] [address] [facility] [id number] [place] [address], [place] [address]- 7528 Dec, Dizziness R42 [facility] [address] [facility] [id number] [place] [address], [place] [address]- 4785 November, [facility] [address] [place] [id number] [place] [address], [place] [address]- 6309 Oct, [facility] [address] [place] [address], [place] [address]- 5406 Oct, [facility] [address] [place] [address]- 8805 Oct, [facility] [address] [place] [address]- 1092 Oct, [facility] [address] [place] [address]- 1052 Sep, [facility] [address] [place] [address]- 4340 Sep, Primary insomnia F51.01 [facility] [address] [place] [address]- 0673 Sep, Primary insomnia F51.01 [facility] [place] [facility] [address] [place] [address]- 3785 Sep, [facility] [place] [facility] [address] 6526 Aug, [facility] [address] [place] [address]- 9917 Aug, [facility] [address] [place] [address] 75419- 6055 Aug, Primary insomnia F51.01 ; Mood disorder F39 ; Nausea and vomiting, unspecified intactability, vomiting of unspecified type R11.2 and Diarrhea R19.7 [facility] [address] [place] [id number] [place] [address] 83012- 0556 Aug, [facility] [address] [place] [id number] [place] [address] 21920- 1325 Aug, Folliculitis L73.9 [facility] [address] [place] [id number] [place] [address] 65904- 2650 Aug, [facility] [address] [place] [id number] [place] [address] 68782- 1800 Aug, [facility] [address] 98328- 2929 Jul, Folliculitis L73.9 [facility] [address] [place] [id number] [place] [address] 69923- 1868 Jul, [facility] [address] [place] [id number] [place] [address] 71451- 3551 Jun, Folliculitis L73.9 [facility] [address] [id number] [place] [address] 78015- 5011 Jun, [facility] [address] [id number] [place] [address] 02754- 7768 May, Polyneuropathy G62.9 [facility] [address] [place] [id number] [place] [address] 73985- 4413 May, Other specified diseases of anus and rectum K62.89 [facility] [address] [place] [id number] [place] [address] 91643- 2436 May, [facility] [id number] [place] [address] 48950- 9519 May, Primary insomnia F51.01 [facility] [address] [address]- 4514 May, [facility] [id number] [place] [address] 98969- 8932 May, [facility] [address] [address]- 3530 Apr, Other specified diseases of anus and rectum K62.89 ; Chronic fatigue R53.82 ; Urinary tract infection, site not specified N39.0 and Enterococcus as the cause of diseases classified elsewhere B95.2 [facility] [id number] [place] [address] 72309- 4268 16 Apr, 2015 [facility] [id number] [place] [address] 36887- 9594 15 Apr, 2015 [facility] [id number] [place] [address] 76571- 4759 Apr, 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 [facility] [address] [address]- 6347 05 Apr, 2015 [facility] [id number] [place] [address] 35102- 0575 26 Mar, 2015 [facility] [address] [address]- 6532 23 Mar, 2015 [facility] [id number] [place] [address] 14252- 4726 17 Mar, 2015 [facility] [address] [address]- 9985 14 Mar, 2015 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 [facility] [id number] [place] [address] 07796- 2303 12 Mar, 2015 [facility] [address] [address]- 7404 11 Mar, 2015 [facility] [id number] [address]- 0164 Mar, [facility] [address] [facility] [id number] [address]- 6210 Mar, [facility] [place] [facility] [address] [facility] [id number] [address] 2540 Feb, [facility] [address] [facility] [id number] [address]- 5367 Feb, [facility] [place] [facility] [address] [facility] [id number], [place] [address] 254 Feb, [facility] [address] [facility] [id number] [place] [address] 99053- 6746 Jan, [facility] [place] [facility] [address] [address]- 2424 Jan, Nausea 787.02 and Neuropathy 355.9 [facility] [address] [address]- 3831 Jan, [facility] [address] [address]- 8810 Jan, [facility] [id number] [address] Jan, [facility] [id number] [id number] Jan, Dental examination V72.2 [facility] [id number] [address] Jan, [facility] [place] [facility] [address] [facility] [id number] [address] Dec, [facility] [place] [facility] [id number] [address] Dec, [facility] [place] [facility] [id number] [address] Dec, Neuropathy 355.9 [facility] [place] [facility] [id number] [place] [address] November, [facility] [place] [facility] [address] [id number] [place] [address] November, [facility] [place] [facility] [address] [id number] [place] [address] November, [facility] [place] [facility] [address] [id number] [place] [address] Oct, [facility] [place] [facility] [address] [id number] [place] [address] Oct, [facility] [place] [facility] [address] [id number] [place] [address] Sep, [facility] [place] [facility] [address] [id number] [place] [address] Sep, [facility] [place] [facility] [address] [id number] [place] [address] Sep, [facility] [place] [facility] [address] [id number] [place] [address] Sep, [facility] [place] [facility] [address] [id number] [place] [address] Sep, [facility] [place] [facility] [address] [facility] [id number] [place] [address] Sep, [facility] [place] [facility] [address] [id number] [place] [address] Sep, [facility] [place] [facility] [address] [id number] [place] [address] Sep, [facility] [place] [facility] [address] [id number] [place] [address] Aug, [facility] [place] [facility] [address] [id number] [place] [address] Aug, [facility] [place] [facility] [address] [id number] [place] [address] Aug, [facility] [place] [facility] [address] [id number] [place] [address] Aug, 2014 [facility] [place] [facility] [address] [id number] [place] [address] Aug, 2014 [facility] [place] [facility] [address] [id number] [place] [address] Aug, 2014 [facility] [place] [facility] [address] [id number] [place] [address] Aug, 2014 [facility] [place] [facility] [address] [id number] [place] [address] Aug, [facility] [place] [facility] [address] [id number] [place] [address] Jul, [facility] [place] [facility] [address] [id number] [place] [address] Jul, [facility] [place] [facility] [address] [id number] [place] [address] Jun, [facility] [place] [facility] [address] [id number] [place] [address] Jun, [facility] [place] [facility] [address] [id number] [place] [address] Jun, [facility] [place] [facility] [address] [id number] [place] [address] Jun, [facility] [place] [facility] [address] [id number] [place] [address] Jun, [facility] [place] [facility] [address] [id number] [place] [address]- [address] Jun, [facility] [place] [facility] [address] [id number] [place] [address]- [address] Jun, [facility] [place] [facility] [address] [id number] [place] [address] Jun, [facility] [place] [facility] [address] [id number] [place] [address] Jun, [facility] [place] [facility] [address] [id number] [place] [address] Jun, [facility] [place] [facility] [address] [id number] [place] [address] Jun, [facility] [place] [facility] [address] [id number] [place] [address] May, [facility] [place] [facility] [address] [id number] [place] [address] May, [facility] [place] [facility] [address] [id number] [place] [address] May, [facility] [place] [facility] [address] [id number] [place] [address] May, [facility] [place] [facility] [address] [id number] [place] [address] May, [facility] [place] [facility] [address] [id number] [place] [address] 32[address] May, [facility] [place] [facility] [address] [id number] [place] [address] May, [facility] [place] [facility] [address] [facility] [id number] [place] [address] May, [facility] [place] [facility] [address] [id number] [place] [address] May, [facility] [place] [facility] [address] [id number] [place] [address] Apr, [facility] [place] [facility] [address] [id number] [place] [address] 79[address] Apr, [facility] [place] [facility] [address] [id number] [place] [address] Apr, [facility] [place] [facility] [address] [facility] [id number] [place] [address] 7784 Apr, [facility] [place] [facility] [address] [id number] [place] [address] Apr, [facility] [place] [facility] [address] [id number] [place] [address] Mar, [facility] [place] [facility] [address] [id number] [place] [address] Mar, [facility] [place] [facility] [address] [id number] [place] [address] Feb, [facility] [place] [facility] [address] [id number] [place] [address] Feb, [facility] [place] [facility] [address] [id number] [place] [address] 360[address] Feb, [facility] [place] [facility] [address] [id number] [place] [address] Feb, [facility] [place] [facility] [address] [id number] [place] [address]- [address] Feb, [facility] [place] [facility] [address] [id number] [place] [address] Feb, [facility] [place] [facility] [address] [id number] [place] [address] 90[address] Jan, [facility] [place] [facility] [address] [id number] [place] [address] Jan, [facility] [place] [facility] [address] [id number] [place] [address] 3598 Jan, [facility] [place] [facility] [address] [id number] [place] [address]186 Jan, [facility] [place] [facility] [address] [id number] [place] [address] 1082 Jan, [facility] [place] [facility] [address] [id number] [place] [address] Jan, [facility] [place] [facility] [address] [id number] [place] [address] 58[address] Jan, [facility] [place] [facility] [address] [id number] [place] [address] Jan, [facility] [place] [facility] [address] [id number] [place] [address] Jan, [facility] [place] [facility] [address] [id number] [place] [address] Jan, [facility] [place] [facility] [address] [id number] [place] [address] Jan, [facility] [place] [facility] [address] [id number] [place] [address] Dec, [facility] [place] [facility] [address] [id number] [place] [address] 280[address] Dec, [facility] [place] [facility] [address] [id number] [place] [address] 7[address] Dec, [facility] [place] [facility] [address] [id number] [place] [address]995 Dec, [facility] [place] [facility] [address] [id number] [place] [address] 9832 Dec, [facility] [place] [facility] [address] [id number] [place] [address] Dec, [facility] [place] [facility] [address] [id number] [place] [address] 0869 November, [facility] [place] [facility] [address] [id number] [place] [address] 478[address] November, [facility] [place] [facility] [address] [id number] [place] [address]- 67[address] November, [facility] [place] [facility] [address] [id number] [place] [address] 1772 November, [facility] [place] [facility] [address] [id number] [place] [address]- 2637 November, [facility] [place] [facility] [address] [id number] [place] [address] 9[address] November, [facility] [address] [id number] [place] [address] Oct, [facility] [address] [id number] [place] [address]32 Oct, [facility] [address] [id number] [place] [address]259 Oct, [facility] [address] [id number] [place] [address] 9363 Oct, [facility] [address] [id number] [place] [address] 7732 Sep, [facility] [address] [id number] [place] [address] 6652 Sep, [facility] [address] [id number] [place] [address]- 9405 Sep, [facility] [address] [id number] [place] [address]- 4795 Sep, [facility] [address] [id number] [place] [address] 96[address] Sep, [facility] [address] [id number] [place] [address] 2800 Aug, [facility] [address] [id number] [place] [address] 0301 Aug, [facility] [address] [id number] [place] [address] 3445 Aug, [facility] [address] [id number] [place] [address]25 Aug, [facility] [address] [id number] [place] [address]- [address] 14 Aug, 2013 [facility] [address] [place] [id number] May, [facility] [place] [facility] [address] [id number] [place] [address] May, [facility] [place] [facility] [address] [id number] [place] [address] May, [facility] [place] [facility] [address] [id number] [place] [address]- [address]382 May, [facility] [place] [facility] [address] [id number] [place] [address] 3879 May, [facility] [place] [facility] [address] [id number] [place] [address]- 7275 Apr, [facility] [place] [facility] [address] [id number] [place] [address]- 0612 Apr, [facility] [place] [facility] [address] [id number] [place] [address]- 0407 Apr, [facility] [place] [facility] [address] [id number] [place] [address]- 0680 Apr, [facility] [place] [facility] [address] [id number] [place] [address]- 2522 Apr, [facility] [place] [facility] [address] [id number] [place] [address]- 9122 Apr, [facility] [place] [facility] [address] [id number] [place] [address]- 8764 Apr, [facility] [place] [facility] [address] [id number] [address] 28 Mar, 2013 [facility] [place] [facility] [address] [id number] [place] [address]- 5740 25 Mar, 2013 [facility] [place] [facility] [address] [id number] [place] [address]- 2431 24 Mar, 2013 [facility] [place] [facility] [address] [id number] [place] [address]- 0760 16 Mar, 2013 [facility] [place] [facility] [address] [id number] [place] [address]- 1422 Mar, [facility] [place] [facility] [address] [id number] [place] [address]- 5589 Mar, [facility] [place] [facility] [address] [id number] [place] [address]- 6098 Feb, [facility] [place] [facility] [address] [id number] [place] [address]- 2604 Feb, [facility] [place] [facility] [address] [id number] [place] [address]- 7373 Feb, [facility] [place] [facility] [address] [id number] [place] [address]- 8397 Feb, [facility] [place] [facility] [address] [id number] [place] [address]- 2973 Feb, [facility] [place] [facility] [address] [id number] [place] [address]- 2632 Feb, [facility] [place] [facility] [address] [id number] [place] [address]- 4165 Jan, [facility] [place] [facility] [address] [id number] [place] [address]- 0218 Dec, [facility] [place] [facility] [address] [id number] [place] [address]- 7019 Dec, [facility] [place] [facility] [address] [id number] [place] [address]- 8273 Dec, [facility] [place] [facility] [address] [id number] [place] [address]- 8756 Dec, [facility] [place] [facility] [address] [id number] [place] [address]- 2003 Dec, [facility] [place] [facility] [address] [id number] [place] [address]- 6161 Dec, [facility] [place] [facility] [address] [id number] [place] [address]- 1619 Dec, [facility] [place] [facility] [address] [id number] [place] [address]- 1406 Dec, [facility] [address] [id number] [place] [address]- 4488 Dec, [facility] [address] [id number] [place] [address] 2546 November, [facility] [address] [id number] [place] [address]- 9696 November, [facility] [address] [id number] [place] [address]- 8437 Oct, [facility] [address] [id number] [place] [address]- 6245 Sep, [facility] [address] [id number] [place] [address]- 1196 Sep, [facility] [address] [id number] [place] [address]- 6608 Sep, [facility] [address] [id number] [place] [address]- 6429 Sep, [facility] [address] [id number] [place] [address]- 2219 Aug, [facility] [address] [id number] [place] [address]- 6417 Aug, [facility] [address] [id number] [place] [address]- 2115 Jul, [facility] [address] [id number] [place] [address]- 5445 Jul, [facility] [address] [id number] [place] [address]- 4826 Jul, [facility] [address] [id number] [place] [address] 2546 Sep, [facility] [address] [id number] [place] [address]- 6916 Sep, [facility] [address] [facility] [id number] [place] [address] Sep, IMMUNIZATIONS No Known Immunizations SOCIAL HISTORY Never Assessed REASON FOR VISIT Requests return call PLAN OF CARE VITAL SIGNS MEDICATIONS Unknown [...] dizziness and nausea 12/07/15 Hospitalization History UTI, AMS-[facility] 09/21/16 Hospitalization History Large bowel obstruction, Dehydration-[facility] 01/01/17 Hospitalization History [facility]- UTI/Sepsis 01/18/2018
--- OUTSIDE RECORDS SUMMARY | 2018-06-09 17:24 | XMS REPORT ---
Author Author LINDA BENTLEY Organization [facility] Address [address] [place] [address] Care Team Providers Care Electrification Adviser Name Role Phone LINDA BENTLEY Unavailable PROBLEMS Type Condition ICD9-CM Code ZTL55-FY Code Onset Dates Condition Status SNOMED Code Problem Abdominal pain, left lower quadrant R10.32 Active 544394936 Problem Mood disorder F39 Active 22660723 Problem Hypertension, benign I10 Active 41154957 Problem Chronic pain syndrome G89.4 Active 780834807 Problem Attention to urostomy Z43.6 Active 262908508 Problem Anxiety F41.9 Active 42951192 Problem Neuropathy G62.9 Active 146161551 Problem Malignant neoplasm of colon, unspecified part of colon C18.9 Active 330963337 Problem Polyneuropathy G62.9 Active 95666783 Problem Incontinence of feces, unspecified fecal incontinence type R15.9 Active 89712805 Problem Chronic fatigue, unspecified R53.82 Active 278656716 Problem Hydronephrosis with ureteral stricture, not elsewhere classified N13.1 Active 50560584 Problem Primary insomnia F51.01 Active 569913152 Problem 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 551452070 ALLERGIES Substance Reaction Event Type Date Status Morphine Unknown Drug Allergy Oct, Active Codeine Unknown Drug Allergy Oct, Active ENCOUNTERS Encounter Location Date Diagnosis [facility] [address] [address] Feb, [facility] [id number] [place] [address] 04726- 3569 Jan, Hypertension, benign I10 and Polyneuropathy G62.9 [facility] [id number] [address] 0017 Jan, Hypertension, benign I10 and Neuropathy G62.9 [facility] [id number] [address] 8395 Jan, [facility] [id number] [place] [address] 67815- 4942 Dec, Polyneuropathy G62.9 [facility] [id number] [address]- 9543 Dec, Mood disorder F39 [facility] [id number] [place] [address] 16273- 2653 November, Polyneuropathy G62.9 [facility] [id number] [place] [address] 78809- 2911 November, Medicare annual wellness visit, initial Z00.00 [facility] [id number] [place] [address] 09131- 6125 November, Mood disorder F39 [facility] [id number] [place] [address] 48190- 4323 Oct, Polyneuropathy G62.9 [facility] [id number] [place] [address] 55208- 4611 Oct, [facility] [id number] [place] [address] 05329- 1284 Oct, [facility] [address] [address] 6100 Oct, Mood disorder F39 ; Attention to urostomy Z43.6 ; Chronic pain syndrome G89.4 and Polyneuropathy G62.9 [facility] [address] [address]- 0165 Sep, Polyneuropathy G62.9 [facility] [id number] [place] [address] 30769- 0281 Sep, [facility] [address] [address]- 2530 Sep, Polyneuropathy G62.9 [facility] [address] 70112- 5789 Aug, Polyneuropathy G62.9 [facility] [address] 45099- 4382 Aug, Malignant neoplasm of colon, unspecified part of colon C18.9 and Polyneuropathy G62.9 [facility] [address] [address]36- 6528 Aug, Neuropathy G62.9 and Polyneuropathy G62.9 [facility] [address] 55808- 2706 Jul, Encounter for drug screening Z02.83 [facility] [address] 45985- 1084 Jul, Polyneuropathy G62.9 [facility] [address] 28689- 6643 Jul, [facility] [address] 86119- 4171 Jul, Neuropathy G62.9 and Anxiety F41.9 [facility] [address] 87273- 3675 Jul, [facility] [address] 36116- 0746 Jul, [facility] [address] 66287- 6196 Jul, [facility] [address] 59197- 0702 Jul, Polyneuropathy G62.9 [facility] [address] 88063- 0796 Jul, [facility] [address] 28023- 9925 Jun, [facility] [address] 41551- 9851 Jun, [facility] [address] [address] 2932 Jun, [facility] [id number] [address] Jun, Encounter for dental examination Z01.20 [facility] [id number] [place] [address] 77646- 7716 Jun, Polyneuropathy G62.9 and Anxiety F41.9 [facility] [id number] [place] [address] 57870- 6351 Jun, [facility] [id number], [place] [address] May, Dental examination Z01.20 [facility] [id number] [place] [address] 96176- 9870 May, Polyneuropathy G62.9 [facility] [id number] [place] [address] 82242- 3581 Apr, Polyneuropathy G62.9 [facility] [id number] [place] [address] 13621- 5722 Apr, Polyneuropathy G62.9 [facility] [id number] [place] [address] 76631- 2119 Apr, Hypertension, benign I10 ; Polyneuropathy G62.9 and Anxiety F41.9 [facility] [id number] [place] [address] 80152- 4675 Apr, Primary insomnia F51.01 and Polyneuropathy G62.9 [facility] [id number] [place] [address] 66639- 8340 Apr, Primary insomnia F51.01 and Polyneuropathy G62.9 [facility] [id number] [place] [address] 79839- 3845 Mar, Primary insomnia F51.01 [facility] [address] [facility] [id number] [place] [address]- 5291 Mar, [facility] [id number] [place] [address], [place] [address]- 4046 Mar, Polyneuropathy G62.9 [facility] [address] [place] [address]- 4126 Feb, Primary insomnia F51.01 [facility] [id number] [place] [address], [place] [address]- 0979 Feb, [facility] [id number] [place] [address], [place] [address]- 5906 Feb, [facility] [id number] [place] [address], [place] [address]- 8705 Feb, Polyneuropathy G62.9 [facility] [id number] [place] [address], [place] [address]- 1757 Feb, Primary insomnia F51.01 [facility] [address] [place] [address]- 9830 Jan, [facility] [id number] [place] [address], [place] [address]- 4352 Jan, [facility] [address] [address]- 0241 Dec, [facility] [address] [address]- 4500 Dec, Primary insomnia F51.01 [facility] [address] [place] [address]- 8366 Dec, Primary insomnia F51.01 [facility] [address] [place] [address]- 4113 Dec, [facility] [place] [facility] [address] [place] [address]- 1698 Dec, [facility] [id number] [address]- 4582 Dec, [facility] [id number] [place] [address] 02922- 6948 Dec, [facility] [id number] [place] [address] 894953- 9369 November, Primary insomnia F51.01 and Polyneuropathy G62.9 [facility] [id number] [place] [address] 80003- 7862 November, [facility] [id number] [place] [address] 59095- 3584 November, Abdominal pain, left lower quadrant R10.32 [facility] [id number] [place] [address] 38773- 8785 November, [facility] [id number] [place] [address] 81097- 2841 Oct, [facility] [id number] [place] [address] 96726- 2591 Oct, Abdominal pain, left lower quadrant R10.32 ; 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 and Neuropathy G62.9 [facility] [address] [address]- 9760 Oct, [facility] [address] [address]- 2966 Sep, [facility] [id number] [place] [address] [id number] Sep, [facility] [address] [address]- 3862 Sep, [facility] [id number] [place] [address] 06960- 4394 Aug, [facility] [address] [address]- 3123 Aug, [facility] [id number] [address]- 1978 Aug, Abdominal pain, left lower quadrant R10.32 ; Neuropathy G62.9 and Anxiety F41.9 [facility] [address] [place] [address] Jul, [facility] [id number] [place] [address] 33892- 6829 Jul, [facility] [id number] [place] [address] 94686 -9262 Jul, [facility] [id number] [place] [address] 59991- 4187 Jul, [facility] [id number] [place] [address] 21094- 4870 Jul, [facility] [id number] [place] [address] 52539- 4930 Jun, [facility] [id number] [place] [address] 83658- 6110 May, [facility] [id number] [place] [address] 84459- 1051 May, [facility] [id number] [place] [address] 76659- 0488 Apr, [facility] [id number] [place] [address] 59727- 0170 Apr, Muscle spasms of both lower extremities M62.838 and Cellulitis, unspecified cellulitis site L03.90 [facility] [id number] [place] [address] 09387- 7405 Apr, [facility] [id number] [place] [address] 90812- 5553 Mar, Generalized abdominal pain R10.84 [facility] [id number] [place] [address] 23447- 8459 Mar, [facility] [id number] [place] [address] 46732- 7471 14 Mar, 2016 [facility] [address] [address]- 5452 14 Mar, 2016 [facility] [id number] [place] [address] 83182- 8664 13 Mar, 2016 [facility] [id number] [place] [address] 38008- 6217 12 Mar, 2016 [facility] [id number] [place] [address] 40041- 3413 09 Mar, 2016 [facility] [id number] [place] [address] 68074- 6397 06 Mar, 2016 [facility] [id number] [place] [address] 83055- 6847 Feb, Other specified diseases of anus and rectum K62.89 [facility] [id number] [place] [address] 09227- 0571 Feb, [facility] [id number] [place] [address] 02510- 5542 Feb, Dizziness R42 [facility] [id number] [place] [address] 29227- 3088 Feb, [facility] [address] [address]- 1895 Jan, Polyneuropathy G62.9 [facility] [address] [address]- 9532 Jan, Other specified diseases of anus and rectum K62.89 [facility] [address] [address]- 7861 Jan, [facility] [address] [address] -8894 Jan, [facility] [address] [address]- 5759 Jan, [facility] [address] [id number] [place] [address]- 7652 Jan, Dizziness R42 [facility] [id number] [place] [address], [place] [address]- 2332 Dec, [facility] [address] [facility] [id number] [place] [address]- 9665 Dec, [facility] [address] [facility] [id number] [place] [address], [place] [address]- 8830 Dec, [facility] [address] [id number] [place] [address]- 1902 Dec, Dizziness R42 [facility] [address] [facility] [id number] [place] [address], [place] [address]- 9380 November, [facility] [address] [facility] [id number] [place] [address]- 0131 Oct, [facility] [id number] [place] [address]- 0650 Oct, [facility] [address] [facility] [id number] [place] [address]- 4556 Oct, [facility] [address] [place] [address]- 0520 Oct, [facility] [address] [facility] [id number] [place] [address]- 9803 Sep, [facility] [id number] [place] [address]- 6325 Sep, Primary insomnia F51.01 [facility] [address] [facility] [id number] [place] [address]- 5456 Sep, Primary insomnia F51.01 [facility] [address] [facility] [id number] [place] 3487 Sep, [facility] [id number] [place] [address]- 1537 Aug, [facility] [id number] [place] [address] 50647- 5175 Aug, [facility] [id number] [place] [address] 36943- 4726 Aug, Primary insomnia F51.01 ; Mood disorder F39 ; Nausea and vomiting, unspecified intactability, vomiting of unspecified type R11.2 and Diarrhea R19.7 [facility] [address] 33544- 4457 Aug, [facility] [id number] [place] [address] 28744- 7696 Aug, Folliculitis L73.9 [facility] [id number] [place] [address] 35318- 0883 Aug, [facility] [id number] [place] [address] 15782- 0656 Aug, [facility] [id number] [place] [address] 54578- 7268 Jul, Folliculitis L73.9 [facility] [id number] [place] [address] 77515- 2192 Jul, [facility] [id number] [place] [address] 47249- 8412 Jun, Folliculitis L73.9 [facility] [id number] [place] [address] 19852- 2952 Jun, [facility] [id number] [place] [address] 68411- 9754 May, Polyneuropathy G62.9 [facility] [id number] [place] [address] 73970- 1151 May, Other specified diseases of anus and rectum K62.89 [facility] [id number] [place] [address] 44290- 5024 May, [facility] [id number] [address]- 4080 13 May, 2015 Primary insomnia F51.01 [facility] [id number] [place] [address] 42583- 2021 May, [facility] [id number] [place] [address] 21912- 9188 May, [facility] [id number] [place] [address] 12382- 0400 Apr, Other specified diseases of anus and rectum K62.89 ; Chronic fatigue R53.82 ; Urinary tract infection, site not specified N39.0 and Enterococcus as the cause of diseases classified elsewhere B95.2 [facility] [id number] [place] [address] 50516- 8564 16 Apr, 2015 [facility] [id number] [place] [address] 87810- 3372 15 Apr, 2015 [facility] [id number] [place] [address] 62693- 7161 14 Apr, 2015 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 [facility] [id number] [place] [address] 09472- 3672 05 Apr, 2015 [facility] [id number] [place] [address] 23717- 2581 26 Mar, 2015 [facility] [id number] [place] [address] 09880- 0503 23 Mar, 2015 [facility] [id number] [place] [address] 26239- 5316 17 Mar, 2015 [facility] [id number] [place] [address] 74851- 4128 14 Mar, 2015 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 [facility] [id number] [place] [address] 97050- 4180 12 Mar, 2015 [facility] [id number] [place] [address] 03094- 7596 Mar, [facility] [address] [facility] [id number] [address]- 3273 Mar, [facility] [address] [facility] [id number] [address]- 1692 Mar, [facility] [address] [facility] [id number] [address]- 8142 Feb, [facility] [address] [facility] [id number] [address]- 8697 Feb, [facility] [address] [facility] [id number] [address]- 1309 Feb, [facility] [id number] [place] [address] 09294- 6468 Jan, [facility] [id number] [place] [address] 05483- 1871 Jan, Nausea 787.02 and Neuropathy 355.9 [facility] [id number] [address]- 4324 Jan, [facility] [id number] [place] [address] 43247- 4279 Jan, [facility] [address] [address]- 6624 Jan, [facility] [address] [id number] [id number] Jan, Dental examination V72.2 [facility] [id number] [address]- 8410 Jan, [facility] [id number] [address]- 0852 Dec, [facility] [id number] [address]- 2766 Dec, [facility] [id number] [address]- 0038 Dec, Neuropathy 355.9 [facility] [place] [facility] [address] [id number] [place] [address]- 2982 November, [facility] [place] [facility] [address] [id number] [place] [address]- 3476 November, [facility] [place] [facility] [address] [facility] [id number] [place] [address]- 8579 November, [facility] [place] [facility] [address] [id number] [place] [address]- 1382 Oct, [facility] [place] [facility] [address] [id number] [place] [address]- 8508 Oct, [facility] [place] [facility] [address] [facility] [id number] [place] [address]- 2973 Sep, [facility] [place] [facility] [address] [facility] [id number] [place] [address]- 5489 Sep, [facility] [place] [facility] [address] [facility] [id number] [place] [address]- 6197 Sep, [facility] [place] [facility] [address] [facility] [id number] [place] [address]- 6144 Sep, [facility] [place] [facility] [address] [facility] [id number] [place] [address]- 6536 Sep, [facility] [place] [facility] [address] [facility] [id number] [address]- 6072 Sep, [facility] [place] [facility] [address] [facility] [id number] [address]- [address] Sep, [facility] [place] [facility] [address] [facility] [id number] [place] [address] Sep, [facility] [place] [facility] [address] [facility] [id number] [address] Aug, [facility] [place] [facility] [address] [facility] [id number] [place] [address] Aug, [facility] [place] [facility] [address] [facility] [id number] [place] [address] Aug, 2014 [facility] [place] [facility] [address] [id number] [place] [address] Aug, 2014 [facility] [place] [facility] [address] [id number] [place] [address] Aug, 2014 [facility] [place] [facility] [address] [id number] [place] [address] Aug, 2014 [facility] [place] [facility] [address] [id number] [place] [address] Aug, 2014 [facility] [place] [facility] [address] [id number] [place] [address] Aug, 2014 [facility] [place] [facility] [address] [id number] [place] [address] Jul, [facility] [place] [facility] [address] [facility] [id number] [place] [address] Jul, [facility] [place] [facility] [address] [id number] [place] [address] Jun, [facility] [place] [facility] [address] [id number] [place] [address] Jun, [facility] [place] [facility] [address] [facility] [id number] [place] [address] Jun, [facility] [place] [facility] [address] [id number] [place] [address] Jun, [facility] [place] [facility] [address] [id number] [place] [address] Jun, [facility] [place] [facility] [address] [id number] [place] [address] Jun, [facility] [place] [facility] [address] [id number] [place] [address]- [address] Jun, [facility] [place] [facility] [address] [id number] [place] [address]- [address] Jun, [facility] [place] [facility] [address] [id number] [place] [address]- [address] Jun, [facility] [place] [facility] [address] [id number] [place] [address]- [address] Jun, [facility] [place] [facility] [address] [facility] [id number] [place] [address]- [address] Jun, [facility] [place] [facility] [address] [id number] [place] [address] May, [facility] [place] [facility] [address] [id number] [place] [address] May, [facility] [place] [facility] [address] [id number] [place] [address] May, [facility] [place] [facility] [address] [id number] [place] [address] May, [facility] [place] [facility] [address] [id number] [address] May, [facility] [place] [facility] [address] [id number] [place] [address] May, [facility] [place] [facility] [address] [id number] [place] [address] May, [facility] [place] [facility] [address] [id number] [address] May, [facility] [place] [facility] [address] [id number] [address] May, [facility] [place] [facility] [address] [id number] [place] [address] Apr, [facility] [place] [facility] [address] [id number] [address] Apr, [facility] [place] [facility] [address] [id number] [address] Apr, [facility] [place] [facility] [address] [id number] [place] [address] Apr, [facility] [place] [facility] [address] [id number] [place] [address] Apr, [facility] [place] [facility] [address] [id number] [place] [address] Mar, [facility] [place] [facility] [address] [id number] [place] [address] Mar, [facility] [place] [facility] [address] [id number] [place] [address] Feb, [facility] [place] [facility] [address] [id number] [place] [address] Feb, [facility] [place] [facility] [address] [id number] [place] [address]498 Feb, [facility] [place] [facility] [address] [id number] [place] [address]93 Feb, [facility] [place] [facility] [address] [id number] [place] [address] Feb, [facility] [place] [facility] [address] [id number] [place] [address]- [address]10 Feb, [facility] [place] [facility] [address] [id number] [place] [address]573 Jan, [facility] [place] [facility] [address] [id number] [place] [address] Jan, [facility] [place] [facility] [address] [id number] [place] [address] 3724 Jan, [facility] [place] [facility] [address] [id number] [place] [address]- 9773 Jan, [facility] [place] [facility] [address] [id number] [place] [address]- 6778 Jan, [facility] [place] [facility] [address] [id number] [place] [address]- 58[address] Jan, [facility] [place] [facility] [address] [id number] [place] [address]272 Jan, [facility] [place] [facility] [address] [id number] [place] [address]373 Jan, [facility] [place] [facility] [address] [id number] [place] [address] 9947 Jan, [facility] [place] [facility] [address] [id number] [place] [address]- [address]285 Jan, [facility] [place] [facility] [address] [id number] [place] [address] Jan, [facility] [place] [facility] [address] [id number] [place] [address]- 7838 Dec, [facility] [place] [facility] [address] [id number] [place] [address]- [address]677 Dec, [facility] [place] [facility] [address] [id number] [place] [address] 6793 Dec, [facility] [place] [facility] [address] [id number] [place] [address]- [address]885 Dec, [facility] [place] [facility] [address] [id number] [place] [address]- 3556 Dec, [facility] [place] [facility] [address] [id number] [place] [address] 6217 Dec, [facility] [place] [facility] [address] [id number] [place] [address]- 7294 November, [facility] [place] [facility] [address] [id number] [place] [address]- 1754 November, [facility] [place] [facility] [address] [id number] [place] [address] 4152 November, [facility] [place] [facility] [address] [id number] [place] November, [facility] [place] [facility] [address] [id number] [place] [address]50 November, [facility] [address] [id number] [place] [address]227 November, [facility] [address] [id number] [place] [address] Oct, [facility] [address] [id number] [place] [address]1 Oct, [facility] [address] [id number] [place] [address]- 9962 Oct, [facility] [address] [id number] [place] [address]- [address]405 Oct, [facility] [address] [id number] [place] [address]- 8265 Sep, [facility] [address] [id number] [place] [address] 4961 Sep, [facility] [address] [id number] [place] [address] 7318 Sep, [facility] [address] [id number] [place] [address]- 5703 Sep, [facility] [place] [facility] [address] [id number] [place] [address]- 4313 Sep, [facility] [address] [id number] [place] [address] 9975 Aug, [facility] [place] [facility] [address] [id number] [place] [address]- 1442 Aug, [facility] [place] [facility] [address] [id number] [place] [address]20 Aug, [facility] [place] [facility] [address] [id number] [place] [address] 7851 Aug, [facility] [address] [facility] [id number] [place] [address]- 7768 14 Aug, 2013 [facility] [address] [place] [id number] May, [facility] [address] [id number] [place] [address] May, [facility] [address] [id number] [place] [address]- 7580 May, [facility] [address] [id number] [place] [address]- 0086 May, [facility] [address] [id number] [place] [address]- 2835 May, [facility] [address] [id number] [place] [address] 3764 Apr, [facility] [address] [id number] [place] [address] 1120 Apr, [facility] [address] [id number] [place] [address]- 9727 Apr, [facility] [address] [id number] [place] [address]- 0132 Apr, [facility] [address] [id number] [place] [address]- 4892 Apr, [facility] [address] [id number] [place] [address]- 7786 Apr, [facility] [address] [id number] [place] [address]- 1795 Apr, [facility] [address] [id number] [place] [address]- 5949 28 Mar, 2013 [facility] [address] [id number] [place] [address]- 5921 25 Mar, 2013 [facility] [address] [id number] [place] [address]- 9021 24 Mar, 2013 [facility] [address] [id number] [place] [address] 16 Mar, 2013 [facility] [place] [facility] [address] [id number] [place] [address]- 8264 Mar, [facility] [place] [facility] [address] [id number] [place] [address]- 3896 Mar, [facility] [place] [facility] [address] [id number] [place] [address]- 7734 Feb, [facility] [place] [facility] [address] [id number] [place] [address]- 0448 Feb, [facility] [place] [facility] [address] [id number] [place] [address]- 7761 Feb, [facility] [place] [facility] [address] [id number] [place] [address]- 9531 Feb, [facility] [place] [facility] [address] [id number] [place] [address]- 3378 Feb, [facility] [place] [facility] [address] [id number] [place] [address]- 4219 Feb, [facility] [place] [facility] [address] [id number] [place] [address]- 2649 Jan, [facility] [place] [facility] [address] [id number] [place] [address]- 9216 Dec, [facility] [place] [facility] [address] [id number] [place] [address]- 0096 Dec, [facility] [place] [facility] [address] [id number] [address]9 Dec, [facility] [place] [facility] [address] [id number] [place] [address]- 7822 Dec, [facility] [place] [facility] [address] [id number] [place] [address]- 8144 Dec, [facility] [place] [facility] [address] [id number] [address]- 4059 Dec, [facility] [place] [facility] [address] [id number] [address]- 5291 Dec, [facility] [address] [id number] [place] [address]- 5596 Dec, [facility] [address] [id number] [place] [address]- 5942 Dec, [facility] [address] [id number] [place] [address]- 2803 November, [facility] [address] [id number] [place] [address]- 6298 November, [facility] [address] [id number] [place] [address]- 4426 Oct, [facility] [address] [id number] [place] [address]- 9391 Sep, [facility] [address] [id number] [place] [address]- 5139 Sep, [facility] [address] [id number] [place] [address]- 2057 Sep, [facility] [address] [id number] [place] [address]- 6011 Sep, [facility] [address] [id number] [place] [address]- 5637 Aug, [facility] [address] [id number] [place] [address]- 6203 Aug, [facility] [address] [id number] [place] [address]- 2634 Jul, [facility] [address] [id number] [place] [address]- 1044 Jul, [facility] [place] [facility] [address] [id number] [place] [address]- 1443 Jul, [facility] [address] [id number] [place] [address]- 9142 Sep, [facility] [address] [facility] [id number] [place] [address] Sep, [facility] [address] [facility] [id number] [place] [address]- 0605 Sep, IMMUNIZATIONS No Known Immunizations SOCIAL HISTORY Never Assessed REASON FOR VISIT Pain management (chronic)-Oneyda LIRA PLAN OF CARE VITAL SIGNS Height 67 in 2017-10-18 Weight 213.2 lbs 2017-10-18 Temperature 98.0 degrees Fahrenheit 2017-10-18 Heart Rate 74 bpm 2017-10-18 Respiratory Rate 18 2017-10-18 BMI 33.39 kg/m2 2017-10-18 Blood pressure systolic 142 mmHg 2017-10-18 Blood pressure diastolic 92 mmHg 2017-10-18 MEDICATIONS Medication Instructions Dosage Frequency Start Date End Date Duration Status Lyrica 150 MG Orally 3 times a day 1 capsule 8h Feb, 28 days Active Wheelchair 1 as directed Dec, Active Percocet 10-325 MG Orally every 4 hrs 1 tablet 4h Sep, 28 days Active Acyclovir 5 % Externally Five times a day 1 application to affected area Dec, Active Zoloft 100 mg Orally Once a day 1 tablet 24h 30 Active Oxycodone HCl 30 MG Orally 2 times a day 1 tablet as needed 12h Sep, 27 days Active Incontinence Brief Large 1 as directed Aug, Active RESULTS No Results PROCEDURES Procedure Date Ordered Result Body Site [facility] VISIT ESTABLISHED PATIENT October 18, 2017 INSTRUCTIONS MEDICATIONS ADMINISTERED No Known Medications [...] [facility] 09/21/16 Hospitalization History Large bowel obstruction, Dehydration-[facility] 01/01/17 Hospitalization History [facility]- UTI/Sepsis 01/18/2018
--- OUTSIDE RECORDS SUMMARY | 2018-06-09 17:24 | XMS REPORT ---
Author Author LINDA BENTLEY Organization 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 Name Role Phone LINDA BENTLEY Unavailable PROBLEMS Type Condition ICD9-CM Code UAK11-SF Code Onset Dates Condition Status SNOMED Code Problem Abdominal pain, left lower quadrant R10.32 Active 124307760 Problem Mood disorder F39 Active 14928725 Problem Hypertension, benign I10 Active 08146733 Problem Chronic pain syndrome G89.4 Active 818867953 Problem Attention to urostomy Z43.6 Active 063865028 Problem Anxiety F41.9 Active 36143407 Problem Neuropathy G62.9 Active 709766737 Problem Malignant neoplasm of colon, unspecified part of colon C18.9 Active 437042820 Problem Polyneuropathy G62.9 Active 24611055 Problem Incontinence of feces, unspecified fecal incontinence type R15.9 Active 06108332 Problem Chronic fatigue, unspecified R53.82 Active 663957448 Problem Hydronephrosis with ureteral stricture, not elsewhere classified N13.1 Active 92334834 Problem Primary insomnia F51.01 Active 300484887 Problem 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 114567086 ALLERGIES No Information ENCOUNTERS Encounter Location Date Diagnosis [place] [id number] [place] [address] 15209- 3324 Feb, [place] [id number] [place] [address] 08731- 1809 Jan, Hypertension, benign I10 and Polyneuropathy G62.9 [place] [id number] [place] [address] 05308- 5176 Jan, Hypertension, benign I10 and Neuropathy G62.9 [place] [address] [place] [id number] [place] [address] 94449- 5156 Jan, [place] [address] [address] 8862 Dec, Polyneuropathy G62.9 [facility] [address] [place] [id number] [place] [address] 67357- 9826 Dec, Mood disorder F39 [facility] [id number] [place] [address] 07030- 5509 November, Polyneuropathy G62.9 [facility] [address] [place] [id number] [place] [address] 13423- 2973 November, Medicare annual wellness visit, initial Z00.00 [facility] [address] [place] [id number] [place] [address] 81650- 3776 November, Mood disorder F39 [facility] [address] [place] [id number] [place] [address] 53983- 3887 Oct, Polyneuropathy G62.9 [facility] [address] [place] [address] [id number] [place] [address] 80160- 9253 Oct, [facility] [id number] [place] [address] 51486- 6535 Oct, [facility] [address] [place] [address] [id number] [place] [address] 74748- 5463 Oct, Mood disorder F39 ; Attention to urostomy Z43.6 ; Chronic pain syndrome G89.[address] [facility] [id number] [place] [address] 09844- 5876 Sep, Polyneuropathy G62.9 [facility] [address] [address] 6602 Sep, [facility] [address] [place] [id number] [place] [address] 57914- 1109 Sep, Polyneuropathy G62.9 [facility] [address], [place] [address]- 5935 Aug, Polyneuropathy G62.9 [facility] [address] [place] [id number] [place] [address] 19279- 4203 Aug, Malignant neoplasm of colon, unspecified part of colon C18.[address] [facility] [address] [place] [id number] [place] [address] 27744- 5898 Aug, Neuropathy G62.[address] [facility] [address] [place] [id number] [place] [address] 75118- 7455 Jul, Encounter for drug screening Z02.83 [facility] [address] [place] [id number] [place] [address] 06490- 5179 Jul, Polyneuropathy G62.9 [facility] [address] [place] [id number] [place] [address] 76517- 7114 Jul, [facility] [address] 16394- 4017 Jul, Neuropathy G62.[address] [facility] [address] [place] [id number] [place] [address] 35309- 6556 Jul, [facility] [address] [place] [id number] [place] [address] 69745- 4068 Jul, [facility] [address] [place] [id number] [place] [address] 89949- 5951 Jul, [facility] [address] [place] [id number] [place] [address] 87240- 4070 Jul, Polyneuropathy G62.9 [facility] [address] [place] [id number] [place] [address] 89869- 0237 Jul, [facility] [address] [place] [id number] [place] [address] 90871- 4448 Jun, [facility] [address] [place] [id number] [place] [address] 78900- 7249 Jun, [facility] [address] [place] [address]- 0651 07 Jun, 2017 [facility] [address] [id number] [address] Jun, Encounter for dental examination Z01.20 [facility] [address] [place] [id number] [place] [address] 97790- 4797 Jun, Polyneuropathy G62.[address] [facility] [address] [place] [id number] [place] [address] 10435- 4470 Jun, [facility] [id number], [place] [address] May, Dental examination Z01.20 [facility] [address] [place] [id number] [place] [address] 45208- 7497 May, Polyneuropathy G62.9 [facility] [address] 77154- 2601 Apr, Polyneuropathy G62.9 [facility] [address] [place] [id number] [place] [address] 78854- 7221 Apr, Polyneuropathy G62.9 [facility] [address] [place] [id number] [place] [address] 47092- 1084 Apr, Hypertension, benign I10 ; Polyneuropathy G62.[address] [facility] [address] [place] [id number] [place] [address] 92802- 4253 Apr, Primary insomnia F51.[address] [facility] [address] [place] [id number] [place] [address] 94928- 2495 Apr, Primary insomnia F51.[address] [facility] [address] [place] [id number] [place] [address] 60428- 4572 Mar, Primary insomnia F51.01 [facility] [address] [place] [id number] [place] [address] 30728- 9420 Mar, [facility] [address] [facility] [id number], [place] [address]- 8268 Mar, Polyneuropathy G62.9 [facility] [address] [place] [id number] [place] [address] 71408- 7087 Feb, Primary insomnia F51.01 [facility] [address] [place] [id number] [place] [address] 59380- 1433 Feb, [facility] [address] [place] [id number] [place] [address] 26493- 4507 Feb, [facility] [address] [place] [id number] [place] [address] 03600- 7263 Feb, Polyneuropathy G62.9 [facility] [address] [place] [id number] [place] [address] 20900- 8883 Feb, Primary insomnia F51.01 [facility] [address] [place] [id number] [place] [address] 39968- 7269 Jan, [facility] [id number] [place] [address] 92362- 3457 Jan, [facility] [id number] [place] [address] 11126- 0798 Dec, [facility] [address] [id number] [address]- 3754 Dec, Primary insomnia F51.01 [facility] [place] [facility] [id number] [place] [address] 33206- 0501 Dec, Primary insomnia F51.01 [facility] [place] [facility] [address] [place] [id number] [place] [address] 38772- 9344 Dec, [facility] [place] [facility] [address] [place] [id number] [place] [address] 10153- 1610 Dec, [facility] [place] [facility] [address], [place] [address]- 6257 Dec, [facility] [address], [place] [address]- 9041 Dec, [facility] [address] [place] [id number] [place] [address] 55821- 8811 November, Primary insomnia F51.[address] [facility] [address] [place] [id number] [place] [address] 23953- 1963 November, [facility] [address] [place] [id number] [place] [address] 96674- 6448 November, Abdominal pain, left lower quadrant R10.32 [facility] [address] [place] [id number] [place] [address] 03822- 5552 November, [facility] [address] [place] [id number] [place] [address] 51684- 9089 Oct, [facility] [address] [place] [id number] [place] [address] 98181- 2747 Oct, Abdominal pain, left lower quadrant R10.32 ; 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 [facility] [address] [place] [id number] [place] [address] 36952- 2670 Oct, [facility] [address], [place] [address]- 6276 Sep, [facility] [address] [place] [id number] [place] [address] [id number] Sep, [facility] [address], [place] [address]- 6984 Sep, [facility] [address] [place] [id number] [place] [address] 22887- 4496 Aug, [facility] [address] [place] [id number] [place] [address] 46278- 6404 Aug, [facility] [address], [place] [address]- 1506 Aug, Abdominal pain, left lower quadrant R10.32 ; Neuropathy G62.9 and Anxiety F41.9 [facility] [address] [facility] [address] Jul, [facility] [address] [place] [id number] [place] [address] 58162- 8429 Jul, [facility] [id number] [place] [address] 48578 -[address] Jul, [facility] [address] [place] [id number] [place] [address] 94786- 9904 Jul, [facility] [address] [place] [id number] [place] [address] 53593- 4548 Jul, [facility] [address] [place] [id number] [place] [address] 17233- 5195 Jun, [facility] [address] [place] [id number] [place] [address] 48722- 8016 May, [facility] [address] [place] [id number] [place] [address] 35309- 2084 May, [facility] [address] [place] [id number] [place] [address] 03191- 3408 Apr, [facility] [address] [place] [id number] [place] [address] 27722- 5653 Apr, Muscle spasms of both lower extremities M62.838 and Cellulitis, unspecified cellulitis site L03.90 [facility] [address] [id number] [address]- 6541 Apr, [facility] [id number] [place] [address] 17947- 6515 23 Mar, 2016 Generalized abdominal pain R10.84 [facility] [id number] [place] [address] 50828- 3001 20 Mar, 2016 [facility] [address], [place] [address]- 7242 14 Mar, 2016 [facility] [address], [place] [address]- 7213 14 Mar, 2015 [facility] [address] [facility] [id number] [place] [address]- 0848 13 Mar, 2016 [facility] [id number] [place] [address] 17391- 7450 12 Mar, 2016 [facility] [address] [place] [id number] [place] [address] 33342- 8929 09 Mar, 2016 [facility] [address] [place] [id number] [place] [address] 49604- 4177 06 Mar, 2016 [facility] [address] [place] [id number] [place] [address] 95844- 2811 Feb, Other specified diseases of anus and rectum K62.89 [facility] [id number] [place] [address] 08630- 1019 Feb, [facility] [address] [place] [id number] [place] [address] 63642- 7305 Feb, Dizziness R42 [facility] [id number] [place] [address] 84428- 7128 Feb, [facility] [id number] [place] [address] 06912- 8396 Jan, Polyneuropathy G62.9 [facility] [id number] [place] [address] 96637- 9202 Jan, Other specified diseases of anus and rectum K62.89 [facility] [address], [place] [address]- 6455 Jan, [facility] [id number] [place] [address] 63365 -5720 Jan, [facility] [address], [place] [address]- 0986 Jan, [facility] [id number] [place] [address] 13548- 4880 Jan, Dizziness R42 [facility] [address] [facility] [id number] [place] [address]- 6709 Dec, [facility] [address] [facility] [id number] [place] [address]- 6396 Dec, [facility] [address] [place] [address]- 7836 Dec, [facility] [address] [facility] [id number] [place] [address], [place] [address]- 9071 Dec, Dizziness R42 [facility] [address] [facility] [id number] [place] [address], [place] [address]- 4243 November, [facility] [address] [place] [id number] [place] [address], [place] [address]- 5083 Oct, [facility] [address] [place] [address], [place] [address]- 7959 Oct, [facility] [address] [place] [address]- 1610 Oct, [facility] [id number] [place] [address]- 7848 Oct, [facility] [id number] [place] [address]- 5170 Sep, [facility] [address] [place] [address]- 3284 Sep, Primary insomnia F51.01 [facility] [address] [place] [address]- 0286 Sep, Primary insomnia F51.01 [facility] [place] [facility] [id number] [place] [address]- 9627 Sep, [facility] [place] [facility] [id number] 0516 Aug, [facility] [id number] [place] [address]- 8103 Aug, [facility] [id number] [place] [address] 37733- 8437 Aug, Primary insomnia F51.01 ; Mood disorder F39 ; Nausea and vomiting, unspecified intactability, vomiting of unspecified type R11.[address] [facility] [address] [id number] [place] [address] 41364- 7781 Aug, [facility] [address] [id number] [place] [address] 58224- 6657 Aug, Folliculitis L73.9 [facility] [id number] [place] [address] 94638- 4050 Aug, [facility] [address] [place] [id number] [place] [address] 29548- 6667 Aug, [facility] [address] 38027- 0570 Jul, Folliculitis L73.9 [facility] [address] [id number] [place] [address] 91382- 9272 Jul, [facility] [address] [id number] [place] [address] 23374- 0212 Jun, Folliculitis L73.9 [facility] [address] [place] [id number] [place] [address] 67266- 6705 Jun, [facility] [id number] [place] [address] 74745- 3094 May, Polyneuropathy G62.9 [facility] [id number] [place] [address] 83772- 3746 May, Other specified diseases of anus and rectum K62.89 [facility] [id number] [place] [address] 07084- 7833 May, [facility] [id number] [place] [address] 97379- 8950 May, Primary insomnia F51.01 [facility] [address], [place] [address]- 3786 May, [facility] [id number] [place] [address] 29501- 8805 May, [facility] [address], [place] [address]- 3037 Apr, Other specified diseases of anus and rectum K62.89 ; Chronic fatigue R53.82 ; Urinary tract infection, site not specified N39.0 and Enterococcus as the cause of diseases classified elsewhere B95.2 [facility] [id number] [place] [address] 29511- 9999 16 Apr, 2015 [facility] [id number] [place] [address] 09953- 2166 15 Apr, 2015 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 [address], [place] [address]- 7863 05 Apr, 2015 [facility] [id number] [place] [address] 52495- 8976 26 Mar, 2015 [facility] [address], [place] [address]- 7917 23 Mar, 2015 [facility] [id number] [place] [address] 97518- 5625 17 Mar, 2015 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 [id number] [place] [address] 80603- 0388 12 Mar, 2015 [facility] [address], [place] [address]- 5989 11 [address], 2015 [facility] [id number] [address]- 0645 Mar, [facility] [address] [facility] [id number], [place] [address]- 4781 Mar, [facility] [place] [facility] [address] [facility] [id number], [place] [address] Feb, [facility] [address] [facility] [id number], [place] [address] Feb, [facility] [place] [facility] [address] [facility] [id number], [place] [address] 2544 Feb, [facility] [address] [facility] [id number] [place] [address] Jan, [facility] [place] [facility] [id number], [place] [address] Jan, Nausea 787.02 and Neuropathy 355.9 [facility] [id number], [place] [address] Jan, [facility] [id number], [place] [address] Jan, [facility] [id number], [place] [address] Jan, [facility] [address] [id number] [id number] Jan, Dental examination V72.2 [facility] [id number], [place] [address] Jan, [facility] [place] [facility] [address] [facility] [id number], [place] [address] Dec, [facility] [place] [facility] [id number] [address] [address] Dec, [facility] [place] [facility] [address] [id number], [place] [address] Dec, Neuropathy 355.9 [facility] [place] [facility] [id number] [place] [address] November, [facility] [place] [facility] [address] [id number] [place] [address] November, [facility] [place] [facility] [address] [id number] [place] [address] November, [facility] [place] [facility] [address] [id number] [place] [address] Oct, [facility] [place] [facility] [address] [id number] [place] [address] Oct, [facility] [place] [facility] [address] [id number] [place] [address] Sep, [facility] [place] [facility] [address] [id number] [place] [address] Sep, [facility] [place] [facility] [address] [id number] [place] [address] Sep, [facility] [place] [facility] [address] [id number] [place] [address] Sep, [facility] [place] [facility] [address] [id number] [place] [address] Sep, [facility] [place] [facility] [address] [facility] [id number] [place] [address] Sep, [facility] [place] [facility] [address] [id number] [place] [address] Sep, [facility] [place] [facility] [address] [id number] [place] [address] Sep, [facility] [place] [facility] [address] [id number] [place] [address] Aug, [facility] [place] [facility] [address] [id number] [place] [address] Aug, [facility] [place] [facility] [address] [id number] [place] [address] Aug, [facility] [place] [facility] [address] [id number] [place] [address] Aug, 2014 [facility] [place] [facility] [address] [id number] [place] [address] Aug, 2014 [facility] [place] [facility] [address] [id number] [place] [address] Aug, 2014 [facility] [place] [facility] [address] [id number] [place] [address] Aug, 2014 [facility] [place] [facility] [address] [id number] [place] [address] Aug, [facility] [place] [facility] [address] [id number] [place] [address] Jul, [facility] [place] [facility] [address] [id number] [place] [address] Jul, [facility] [place] [facility] [address] [id number] [place] [address] Jun, [facility] [place] [facility] [address] [id number] [place] [address] Jun, [facility] [place] [facility] [address] [address] [id number] [place] [address] Jun, [facility] [place] [facility] [address] [id number] [place] [address] Jun, [facility] [place] [facility] [address] [id number] [place] [address] Jun, [facility] [place] [facility] [address] [id number] [place] [address] 65[address] Jun, [facility] [place] [facility] [address] [id number] [place] [address] Jun, [facility] [place] [facility] [address] [id number] [place] [address] Jun, [facility] [place] [facility] [address] [id number] [place] [address] Jun, [facility] [place] [facility] [address] [id number] [place] [address] Jun, [facility] [place] [facility] [address] [id number] [place] [address] Jun, [facility] [place] [facility] [address] [id number] [place] [address] May, [facility] [place] [facility] [address] [id number] [place] [address]679 May, [facility] [place] [facility] [address] [id number] [place] [address] 1101 May, [facility] [place] [facility] [address] [id number] [place] [address] May, [facility] [place] [facility] [address] [id number] [place] [address] 1182 May, [facility] [place] [facility] [address] [id number] [place] [address] May, [facility] [place] [facility] [address] [id number] [place] [address] 1585 May, [facility] [place] [facility] [address] [facility] [id number] [place] [address] 8624 May, [facility] [place] [facility] [address] [id number] [place] [address] 1998 May, [facility] [place] [facility] [address] [id number] [place] [address] Apr, [facility] [place] [facility] [address] [id number] [place] [address] 2696 Apr, [facility] [place] [facility] [address] [id number] [place] [address] Apr, [facility] [place] [facility] [address] [facility] [id number] [place] [address] 9070 Apr, [facility] [place] [facility] [address] [id number] [place] [address] Apr, [facility] [place] [facility] [address] [id number] [place] [address] 9724 Mar, [facility] [place] [facility] [address] [id number] [place] [address] 1841 Mar, [facility] [place] [facility] [address] [id number] [place] [address] Feb, [facility] [place] [facility] [address] [id number] [place] [address] Feb, [facility] [place] [facility] [address] [id number] [place] [address] 1304 Feb, [facility] [place] [facility] [address] [id number] [place] [address] Feb, [facility] [place] [facility] [address] [id number] [place] [address] 6984 Feb, [facility] [place] [facility] [address] [id number] [place] [address] 32[address] Feb, [facility] [place] [facility] [address] [id number] [place] [address] 1563 Jan, [facility] [place] [facility] [address] [id number] [place] [address] Jan, [facility] [place] [facility] [address] [id number] [place] [address] Jan, [facility] [place] [facility] [address] [id number] [place] [address] Jan, [facility] [place] [facility] [address] [id number] [place] [address] 0192 Jan, [facility] [place] [facility] [address] [id number] [place] [address] 5779 Jan, [facility] [place] [facility] [address] [id number] [place] [address]161 Jan, [facility] [place] [facility] [address] [id number] [place] [address] Jan, [facility] [place] [facility] [address] [id number] [place] [address] 7785 Jan, [facility] [place] [facility] [address] [id number] [place] [address] 3218 Jan, [facility] [place] [facility] [address] [id number] [place] [address]- 2025 Jan, [facility] [place] [facility] [address] [id number] [place] [address]687 Dec, [facility] [place] [facility] [address] [id number] [place] [address] 6767 Dec, [facility] [place] [facility] [address] [id number] [place] [address] 67[address] Dec, [facility] [place] [facility] [address] [id number] [place] [address] 9967 Dec, [facility] [place] [facility] [address] [id number] [place] [address] 49[address] Dec, [facility] [place] [facility] [address] [id number] [place] [address] 9737 Dec, [facility] [place] [facility] [address] [id number] [place] [address] 6234 November, [facility] [place] [facility] [address] [id number] [place] [address] 8143 November, [facility] [place] [facility] [address] [id number] [place] [address]308 November, [facility] [place] [facility] [address] [id number] [place] [address] 9410 November, [facility] [place] [facility] [address] [id number] [place] [address] 3370 November, [facility] [place] [facility] [address] [id number] [place] [address] 5297 November, [facility] [address] [id number] [place] [address] 8712 Oct, [facility] [address] [id number] [place] [address] 1288 Oct, [facility] [address] [id number] [place] [address] 4853 Oct, [facility] [address] [id number] [place] [address] 1355 Oct, [facility] [address] [id number] [place] [address] 3555 Sep, [facility] [address] [id number] [place] [address] 2455 Sep, [facility] [address] [id number] [place] [address] 1259 Sep, [facility] [address] [id number] [place] [address] 4133 Sep, [facility] [address] [id number] [place] [address]- 6678 Sep, [facility] [address] [id number] [place] [address] 2636 Aug, [facility] [address] [id number] [place] [address]- 6464 Aug, [facility] [address] [id number] [place] [address]- 6411 Aug, [facility] [address] [id number] [place] [address]- 3344 Aug, [facility] [address] [id number] [place] [address]- 6449 14 Aug, 2013 [facility] [address] [place] [id number] May, [facility] [place] [facility] [address] [id number] [place] [address] 0621 May, [facility] [place] [facility] [address] [id number] [place] [address] May, [facility] [place] [facility] [address] [id number] [place] [address]- 3457 May, [facility] [place] [facility] [address] [id number] [place] [address]- 8433 May, [facility] [place] [facility] [address] [id number] [place] [address]- 8128 Apr, [facility] [place] [facility] [address] [id number] [place] [address]- 1259 Apr, [facility] [place] [facility] [address] [id number] [place] [address]- 1033 Apr, [facility] [place] [facility] [address] [id number] [place] [address]- 1865 Apr, [facility] [place] [facility] [address] [id number] [place] [address]- 2163 Apr, [facility] [place] [facility] [address] [id number] [place] [address]- 5781 Apr, [facility] [place] [facility] [address] [id number] [place] [address]- 1452 Apr, [facility] [place] [facility] [address] [id number], [place] [address]- 8615 28 Mar, 2013 [facility] [place] [facility] [address] [id number] [place] [address]- 1335 25 Mar, 2013 [facility] [place] [facility] [address] [id number] [place] [address]- 6515 24 Mar, 2013 [facility] [place] [facility] [address] [id number] [place] [address]- 2087 16 Mar, 2013 [facility] [place] [facility] [address] [id number] [place] [address]- 4011 Mar, [facility] [place] [facility] [address] [id number] [place] [address]- 1575 Mar, [facility] [place] [facility] [address] [id number] [place] [address]- 6425 Feb, [facility] [place] [facility] [address] [id number] [place] [address]- 1126 Feb, [facility] [place] [facility] [address] [id number] [place] [address]- 6791 Feb, [facility] [place] [facility] [address] [id number] [place] [address]- 7260 Feb, [facility] [place] [facility] [address] [id number] [place] [address]- 5483 Feb, [facility] [place] [facility] [address] [id number] [place] [address]- 8654 Feb, [facility] [place] [facility] [address] [id number] [place] [address]- 9618 Jan, [facility] [place] [facility] [address] [id number] [place] [address]- 9025 Dec, [facility] [place] [facility] [address] [id number] [place] [address]- 5004 Dec, [facility] [place] [facility] [address] [id number] [place] [address]- 9402 Dec, [facility] [place] [facility] [address] [id number] [place] [address]- 1590 Dec, [facility] [place] [facility] [address] [id number] [place] [address]- 2714 Dec, [facility] [place] [facility] [address] [id number] [place] [address]- 1779 Dec, [facility] [place] [facility] [address] [id number] [place] [address]- 6615 Dec, [facility] [place] [facility] [address] [id number] [place] [address]- 9536 Dec, [facility] [address] [id number] [place] [address]- 6982 Dec, [facility] [address] [id number] [place] [address] 2546 November, [facility] [address] [id number] [place] [address]- 2396 November, [facility] [address] [id number] [place] [address]- 1047 Oct, [facility] [address] [id number] [place] [address]- 2373 Sep, [facility] [address] [id number] [place] [address]- 8846 Sep, [facility] [address] [id number] [place] [address]- 7520 Sep, [facility] [address] [id number] [place] [address]- 2215 Sep, [facility] [address] [id number] [place] [address]- 2372 Aug, [facility] [address] [id number] [place] [address]- 9528 Aug, [facility] [address] [id number] [place] [address]- 7452 Jul, [facility] [address] [id number] [place] [address]- 4676 Jul, [facility] [address] [id number] [place] [address]- 6326 Jul, [facility] [address] [id number] [place] [address] 2546 Sep, [facility] [address] [id number] [place] [address]16 Sep, [facility] [address] [facility] [id number] [place] [address] Sep, IMMUNIZATIONS No Known Immunizations SOCIAL HISTORY Never Assessed REASON FOR VISIT Controlled Med Refill 10/11 PLAN OF CARE VITAL SIGNS MEDICATIONS Medication Instructions Dosage Frequency Start Date End Date Duration Status Oxycodone HCl 30 MG Orally 2 times a day 1 tablet as needed 12h Sep, 27 days Active Percocet 10-325 MG Orally every 4 hrs 1 tablet 4h Sep, 28 days Active RESULTS No Results [...] AMS-VC 09/21/16 Hospitalization History Large bowel obstruction, Dehydration-[facility] 01/01/17 Hospitalization History [facility]- UTI/Sepsis 01/18/2018
--- OUTSIDE RECORDS SUMMARY | 2018-06-09 17:25 | XMS REPORT ---
Author Author LINDA BENTLEY [facility] Address [address] [place] [address] Care Team Providers Care Comptometrist Name Role Phone LINDA BENTLEY Unavailable PROBLEMS Type Condition ICD9-CM Code KER22-TY Code Onset Dates Condition Status SNOMED Code Problem Abdominal pain, left lower quadrant R10.32 Active 746069175 Problem Mood disorder F39 Active 65184202 Problem Hypertension, benign I10 Active 98842347 Problem Chronic pain syndrome G89.4 Active 553027313 Problem Attention to urostomy Z43.6 Active 868608066 Problem Anxiety F41.9 Active 81828050 Problem Neuropathy G62.9 Active 485527875 Problem Malignant neoplasm of colon, unspecified part of colon C18.9 Active 173513517 Problem Polyneuropathy G62.9 Active 16419650 Problem Incontinence of feces, unspecified fecal incontinence type R15.9 Active 67779737 Problem Chronic fatigue, unspecified R53.82 Active 174527494 Problem Hydronephrosis with ureteral stricture, not elsewhere classified N13.1 Active 19594955 Problem Primary insomnia F51.01 Active 777385390 Problem 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 037127245 ALLERGIES No Information ENCOUNTERS Encounter Location Date Diagnosis [place] [id number] [address] Jan, [facility] [address], [place] [address] Jan, Hypertension, benign I10 and Neuropathy G62.9 [facility] [address] [address] Jan, [facility] [id number] [address] Dec, Polyneuropathy G62.9 [place] [address] [address] Dec, Mood disorder F39 [facility] [id number] [place] [address] 59445- 6795 November, Polyneuropathy G62.9 [facility] [address] [address] November, Medicare annual wellness visit, initial Z00.00 [facility] [id number] [place] [address] 55292- 4620 November, Mood disorder F39 [facility] [id number] [place] [address] 59788- 7393 Oct, Polyneuropathy G62.9 [facility] [address] [address] 8[address] Oct, [facility] [id number] [place] [address] 84610- 6437 Oct, [facility] [id number] [place] [address] 66863- 0304 Oct, Mood disorder F39 ; Attention to urostomy Z43.6 ; Chronic pain syndrome G89.4 and Polyneuropathy G62.9 [facility] [address], [place] [address]- 8267 Sep, Polyneuropathy G62.9 [facility] [address] [address]- 4886 Sep, [facility] [address], [place] [address]- 5868 Sep, Polyneuropathy G62.9 [facility] [address], [place] [address]- 54[address] Aug, Polyneuropathy G62.9 [facility] [address] [address]- [address] Aug, Malignant neoplasm of colon, unspecified part of colon C18.9 and Polyneuropathy G62.9 [facility] [id number] [place] [address] 53772- 3497 Aug, Neuropathy G62.9 and Polyneuropathy G62.9 [facility] [address] [address]- 0944 Jul, Encounter for drug screening Z02.83 [facility] [id number] [place] [address] 90309- 3149 Jul, Polyneuropathy G62.9 [facility] [id number] [place] [address] 86701- 1360 Jul, [facility] [id number] [place] [address] 89587- 7726 Jul, Neuropathy G62.9 and Anxiety F41.9 [facility] [id number] [place] [address] 83270- 1202 Jul, [facility] [id number] [place] [address] 46023- 0771 Jul, [facility] [id number] [place] [address] 05570- 6830 Jul, [facility] [id number] [place] [address] 11811- 1922 Jul, Polyneuropathy G62.9 [facility] [id number] [place] [address] 72715- 5390 Jul, [facility] [address] [address]- 8188 Jun, [facility] [id number] [place] [address] 75517- 0425 Jun, [facility] [address] [address]- 2144 07 Jun, 2017 [facility] [address] [id number] [address] Jun, Encounter for dental examination Z01.20 [facility] [id number] [place] [address] 60199- 3907 Jun, Polyneuropathy G62.9 and Anxiety F41.9 [facility] [id number] [place] [address] 80415- 9638 Jun, [facility] [address] [place] [address] May, Dental examination Z01.20 [facility] [id number] [place] [address] 68165- 1347 May, Polyneuropathy G62.9 [facility] [id number] [place] [address] 23478- 0269 Apr, Polyneuropathy G62.9 [facility] [id number] [place] [address] 96290- 6010 Apr, Polyneuropathy G62.9 [facility] [id number] [place] [address] 96854- 7712 Apr, Hypertension, benign I10 ; Polyneuropathy G62.9 and Anxiety F41.9 [facility] [id number] [place] [address] 98620- 4207 Apr, Primary insomnia F51.01 and Polyneuropathy G62.9 [facility] [id number] [place] [address] 99913- 7685 Apr, Primary insomnia F51.01 and Polyneuropathy G62.9 [facility] [id number] [place] [address] 04173- 9565 Mar, Primary insomnia F51.01 [facility] [id number] [place] [address] 21624- 9769 Mar, [facility] [id number] [place] [address] 31860- 2493 Mar, Polyneuropathy G62.9 [facility] [address] [facility] [id number] [place] [address]- 1031 Feb, Primary insomnia F51.01 [facility] [address] [facility] [id number] [place] [address]- 5328 Feb, [facility] [address] [place] [address]- 4696 Feb, [facility] [id number] [place] [address], [place] [address]- 0821 Feb, Polyneuropathy G62.9 [facility] [id number] [place] [address], [place] [address]- 9206 Feb, Primary insomnia F51.01 [facility] [address] [place] [address]- 7303 Jan, [facility] [id number] [place] [address], [place] [address]- 4195 Jan, [facility] [id number] [place] [address]- 6665 Dec, [facility] [id number] [place] [address], [place] [address]- 0927 Dec, Primary insomnia F51.01 [facility] [id number] [place] [address]- 3130 Dec, Primary insomnia F51.01 [facility] [address], [place] [address]- 4483 Dec, [facility] [id number] [address]- 3582 Dec, [facility] [id number] [place] [address], [place] [address]- 8274 Dec, [facility] [address], [place] [address]- 9880 Dec, [facility] [id number] [place] [address] 12442- 8924 November, Primary insomnia F51.01 and Polyneuropathy G62.9 [facility] [id number] [place] [address] 33393- 8589 November, [facility] [id number] [place] [address] 02715877- 0134 November, Abdominal pain, left lower quadrant R10.32 [facility] [id number] [place] [address] 31827- 4850 November, [facility] [id number] [place] [address] 35202- 4066 Oct, [facility] [id number] [place] [address] 26229- 4279 Oct, Abdominal pain, left lower quadrant R10.32 ; 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 and Neuropathy G62.9 [facility] [id number] [place] [address] 09196- 8424 Oct, [facility] [id number] [place] [address] 13940- 2387 Sep, [facility] [address] [id number] Sep, [facility] [id number] [place] [address] 19808- 4656 Sep, [facility] [id number] [place] [address] 59075- 0409 Aug, [facility] [id number] [place] [address] 09365- 2302 Aug, [facility] [id number] [place] [address] 93744874- 0968 Aug, Abdominal pain, left lower quadrant R10.32 ; Neuropathy G62.9 and Anxiety F41.9 [facility] [address] [place] [address] Jul, [facility] [address] [facility] [id number] [address]- 7035 Jul, [facility] [address] [facility] [id number] [place] [address]6932 Jul, [facility] [address] [facility] [id number], [place] [address]- 3254 Jul, [facility] [id number] [place] [address] 29608- 6665 Jul, [facility] [address] [facility] [id number] [place] [address], [place] [address]- 6451 Jun, [facility] [id number] [place] [address], [place] [address]- 6770 May, [facility] [id number] [place] [address] 49101- 6520 May, [facility] [id number] [place] [address] 38391- 6491 Apr, [facility] [address] [address]- 9356 Apr, Muscle spasms of both lower extremities M62.838 and Cellulitis, unspecified cellulitis site L03.90 [facility] [address], [place] [address]- 8655 Apr, [facility] [id number] [place] [address] 85456- 4834 23 Mar, 2016 Generalized abdominal pain R10.84 [facility] [address] [address]- 1757 20 Mar, 2016 [facility] [id number] [place] [address] 94826- 3667 14 Mar, 2016 [facility] [address] [address]- 0717 14 Mar, 2016 [facility] [id number] [place] [address] 05861- 3437 13 Mar, 2016 [facility] [address] [facility] [id number] [address]- 3456 12 Mar, 2016 [facility] [address] [facility] [id number] [place] [address] 94331- 7508 Mar, [facility] [address] [facility] [id number], [place] [address]- 9790 Mar, [facility] [id number] [place] [address] 37456- 2902 Feb, Other specified diseases of anus and rectum K62.89 [facility] [id number] [place] [address] 76717- 1606 Feb, [facility] [id number] [place] [address] 21328- 0548 Feb, Dizziness R42 [facility] [id number] [place] [address] 53274- 3727 Feb, [facility] [id number] [place] [address] 97968- 9370 Jan, Polyneuropathy G62.9 [facility] [id number] [place] [address] 40907- 0276 Jan, Other specified diseases of anus and rectum K62.89 [facility] [address], [place] [address]- 9048 Jan, [facility] [id number], [place] [address] -8088 Jan, [facility] [id number] [place] [address] 24076- 4252 Jan, [facility] [id number] [address]- 6979 Jan, Dizziness R42 [facility] [address], [place] [address]- 2174 Dec, [facility] [address] [facility] [id number] [place] [address]- 5891 Dec, [facility] [address] [facility] [id number] [place] [address]- 2088 Dec, [facility] [address] [facility] [id number] [place] [address] 2545 Dec, Dizziness R42 [facility] [id number] [place] [address], [place] [address]- 3121 November, [facility] [address] [facility] [id number] [place] [address]- 4516 Oct, [facility] [id number] [address]- 8581 Oct, [facility] [id number] [address]- 7798 Oct, [facility] [id number] [address]- 1335 Oct, [facility] [id number] [address]- 8476 Sep, [facility] [id number] [address]- 4964 Sep, Primary insomnia F51.01 [facility] [id number] [address]- 7719 Sep, Primary insomnia F51.01 [facility] [id number] [address]- 7283 Sep, [facility] [address] [facility] [id number] [place] [address]- 5408 Aug, [facility] [id number] [address]- 6163 Aug, [facility] [id number] [address]- 5051 Aug, Primary insomnia F51.01 ; Mood disorder F39 ; Nausea and vomiting, unspecified intactability, vomiting of unspecified type R11.2 and Diarrhea R19.7 [facility] [id number] [place] [address] 85699- 9472 15 Aug, 2015 [facility] [id number] [place] [address] 48241- 3233 Aug, Folliculitis L73.9 [facility] [address] 03084- 3983 Aug, [facility] [address] 80227- 4039 Aug, [facility] [address] 55013- 4403 Jul, Folliculitis L73.9 [facility] [id number] [place] [address] 01295- 1746 Jul, [facility] [id number] [place] [address] 95917- 6198 Jun, Folliculitis L73.9 [facility] [address] 18097- 5435 Jun, [facility] [id number] [place] [address] 90956- 9524 May, Polyneuropathy G62.9 [facility] [id number] [place] [address] 66526- 1078 May, Other specified diseases of anus and rectum K62.89 [facility] [id number] [place] [address] 00437- 4870 May, [facility] [id number] [place] [address] 02381- 2832 May, Primary insomnia F51.01 [facility] [id number] [place] [address] 19405- 1102 May, [facility] [address] [address]- 7141 May, [facility] [address] [address]- 8898 Apr, Other specified diseases of anus and rectum K62.89 ; Chronic fatigue R53.82 ; Urinary tract infection, site not specified N39.0 and Enterococcus as the cause of diseases classified elsewhere B95.2 [facility] [address] [address]- 9831 16 Apr, 2015 [facility] [address], [place] [address]- 4480 15 Apr, 2015 [facility] [address] [id number] [address]- 2695 Apr, 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 [facility] [address] [address]- 4914 05 Apr, 2015 [facility] [address] [address]- 7234 26 Mar, 2015 [facility] [address], [place] [address]- 7813 23 Mar, 2015 [facility] [address] [address]- 2189 17 Mar, 2015 [facility] [address] [address]- 2815 14 Mar, 2015 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 [facility] [address], [place] [address] 2541 12 Mar, 2015 [facility] [address], [place] [address] 2546 11 Mar, 2015 [facility] [address] [address]- 2546 11 Mar, 2015 [facility] [address], [place] [address] 2540 Mar, [facility] [address] [facility] [id number] [place] [address] 2542 Feb, [facility] [address] [facility] [id number] [place] [address]- 5676 Feb, [facility] [address] [facility] [id number] [place] [address] 2546 Feb, [facility] [address] [facility] [id number], [place] [address]- 6201 Jan, [facility] [address] [facility] [id number] [place] [address] 2548 Jan, Nausea 787.02 and Neuropathy 355.9 [facility] [address] [facility] [id number], [place] [address]- 5146 Jan, [facility] [address] [address]- 8038 Jan, [facility] [address] [facility] [id number] [address]- 2290 Jan, [facility] [address] [id number] [id number] Jan, Dental examination V72.2 [facility] [id number], [place] [address] Jan, [facility] [id number] [address] Dec, [facility] [address] [facility] [id number], [place] [address] Dec, [facility] [address] [facility] [id number], [place] [address] Dec, Neuropathy 355.9 [facility] [address] [facility] [id number], [place] [address] November, [facility] [id number], [place] [address] November, [facility] [place] [facility] [address] [id number] [place] [address] November, [facility] [place] [facility] [address] [id number] [place] [address] Oct, [facility] [place] [facility] [address] [id number] [place] [address] Oct, [facility] [place] [facility] [address] [id number] [place] [address] Sep, [facility] [place] [facility] [address] [id number] [place] [address] Sep, [facility] [place] [facility] [address] [id number] [place] [address] Sep, [facility] [place] [facility] [address] [id number] [place] [address] Sep, [facility] [place] [facility] [address] [id number] [place] [address] Sep, [facility] [place] [facility] [address] [id number] [place] [address] Sep, [facility] [place] [facility] [address] [id number] [place] [address] Sep, [facility] [place] [facility] [address] [id number] [place] [address] Sep, [facility] [place] [facility] [address] [id number] [place] [address] Aug, [facility] [place] [facility] [address] [id number] [place] [address] Aug, [facility] [place] [facility] [address] [id number] [place] [address] Aug, [facility] [place] [facility] [address] [id number] [place] [address] Aug, [facility] [place] [facility] [address] [id number] [place] [address]- [address] 02 Aug, 2014 [facility] [place] [facility] [address] [id number] [place] [address] Aug, 2014 [facility] [place] [facility] [address] [id number] [place] [address] Aug, 2014 [facility] [place] [facility] [address] [id number] [place] [address] Aug, 2014 [facility] [place] [facility] [address] [id number] [place] [address] Jul, [facility] [place] [facility] [address] [id number] [place] [address] Jul, [facility] [place] [facility] [address] [id number] [place] [address] Jun, [facility] [place] [facility] [address] [id number] [place] [address] Jun, [facility] [place] [facility] [address] [id number] [place] [address] Jun, [facility] [place] [facility] [address] [id number] [place] [address] Jun, [facility] [place] [facility] [address] [id number] [place] [address] Jun, [facility] [place] [facility] [address] [id number] [place] [address] Jun, [facility] [place] [facility] [address] [id number] [place] [address] Jun, [facility] [place] [facility] [address] [id number] [place] [address] Jun, [facility] [place] [facility] [address] [id number] [place] [address] Jun, [facility] [place] [facility] [address] [id number] [place] [address] Jun, [facility] [place] [facility] [address] [id number] [place] [address] Jun, [facility] [place] [facility] [address] [id number] [place] [address] May, [facility] [place] [facility] [address] [id number] [place] [address] May, [facility] [place] [facility] [address] [id number] [place] [address] May, [facility] [place] [facility] [address] [id number] [place] [address] May, [facility] [place] [facility] [address] [id number] [place] [address] 48[address] May, [facility] [place] [facility] [address] [id number] [place] [address] 47[address] May, [facility] [place] [facility] [address] [id number] [place] [address] May, [facility] [place] [facility] [address] [id number] [place] [address] May, [facility] [place] [facility] [address] [id number] [place] [address] May, [facility] [place] [facility] [address] [id number] [place] [address] Apr, [facility] [place] [facility] [address] [id number], [place] [address] Apr, [facility] [place] [facility] [address] [id number] [place] [address] Apr, [facility] [place] [facility] [address] [id number] [place] [address] 8410 Apr, [facility] [place] [facility] [address] [id number] [place] [address] Apr, [facility] [place] [facility] [address] [id number] [place] [address] Mar, [facility] [place] [facility] [address] [id number] [place] [address] Mar, [facility] [place] [facility] [address] [id number] [place] [address] Feb, [facility] [place] [facility] [address] [id number] [place] [address] 6[address] Feb, [facility] [place] [facility] [address] [id number] [place] [address]100 Feb, [facility] [place] [facility] [address] [id number] [place] [address] 4472 Feb, [facility] [place] [facility] [address] [id number] [place] [address] 9447 Feb, [facility] [place] [facility] [address] [id number] [place] [address] 286[address] Feb, [facility] [place] [facility] [address] [id number] [place] [address] 4468 Jan, [facility] [place] [facility] [address] [id number] [place] [address]28 Jan, [facility] [place] [facility] [address] [id number] [place] [address]- 7056 Jan, [facility] [place] [facility] [address] [id number] [place] [address] 3863 Jan, [facility] [place] [facility] [address] [id number] [place] [address]17 Jan, [facility] [place] [facility] [address] [id number] [place] [address] Jan, [facility] [place] [facility] [address] [id number] [place] [address] 7647 Jan, [facility] [place] [facility] [address] [id number] [place] [address]646 Jan, [facility] [place] [facility] [address] [id number] [place] [address] Jan, [facility] [place] [facility] [address] [id number] [place] [address] 66[address] Jan, [facility] [place] [facility] [address] [id number] [place] [address] Jan, [facility] [place] [facility] [address] [id number] [place] [address] Dec, [facility] [place] [facility] [address] [id number] [place] [address] Dec, [facility] [place] [facility] [address] [id number] [place] [address] 9[address] Dec, [facility] [place] [facility] [address] [id number] [place] [address] 6519 Dec, [facility] [place] [facility] [address] [id number] [place] [address] 7164 Dec, [facility] [place] [facility] [address] [id number] [place] [address] 9964 Dec, [facility] [place] [facility] [address] [id number] [place] [address]- 5741 November, [facility] [place] [facility] [address] [id number] [place] [address]- 0204 November, [facility] [place] [facility] [address] [id number] [place] [address]- 4354 November, [facility] [place] [facility] [address] [id number] [place] [address]- 9505 November, [facility] [place] [facility] [address] [id number] [place] [address]- 2736 November, [facility] [place] [facility] [address] [id number] [place] [address] November, [facility] [place] [facility] [address] [id number] [place] [address]- 6581 Oct, [facility] [address] [id number] [place] [address] 30 Oct, 2013 [facility] [address] [id number] [place] [address]55 Oct, [facility] [address] [id number] [place] [address] 9412 Oct, [facility] [address] [id number] [place] [address]- 7907 Sep, [facility] [address] [id number] [place] [address]- 8575 Sep, [facility] [address] [id number] [place] [address] 53[address] Sep, [facility] [address] [id number] [place] [address]- 2088 Sep, [facility] [address] [id number] [place] [address]- 2598 Sep, [facility] [address] [id number] [place] [address]- 8563 Aug, [facility] [address] [id number] [place] [address] 6653 Aug, [facility] [address] [id number] [place] [address] 7520 Aug, [facility] [address] [id number], [place] [address] Aug, [facility] [address] [id number] [place] [address] Aug, [facility] [address] [place] [id number] May, [facility] [address] [id number] [place] [address] 5429 May, [facility] [address] [id number] [place] [address]- [address]91 08 May, 2013 [facility] [address] [id number] [place] [address]- 1643 May, [facility] [place] [facility] [address] [id number] [place] [address] May, [facility] [place] [facility] [address] [id number] [place] [address]- 7224 Apr, [facility] [place] [facility] [address] [id number] [place] [address]- 2338 Apr, [facility] [place] [facility] [address] [id number] [place] Apr, [facility] [place] [facility] [address] [id number] [place] [address]- 7629 Apr, [facility] [place] [facility] [address] [id number] [place] [address]- 8061 Apr, [facility] [place] [facility] [address] [id number] [place] [address]- 9180 Apr, [facility] [place] [facility] [address] [id number] [place] [address]- 1114 Apr, [facility] [place] [facility] [address] [id number] [place] [address]- 4660 28 Mar, 2013 [facility] [place] [facility] [address] [id number] [place] [address]- 3116 25 Mar, 2012 [facility] [place] [facility] [address] [id number] [place] [address]- 8415 24 Sep, 2012 [facility] [place] [facility] [address] [id number] [place] [address]- 8833 16 Sep, 2012 [facility] [place] [facility] [address] [id number] [place] [address]- 6839 12 Sep, 2012 [facility] [place] [facility] [address] [id number] [place] [address] 06 Mar, 2013 [facility] [place] [facility] [address] [id number] [place] [address]- 5169 Feb, [facility] [place] [facility] [address] [id number] [place] [address]- 9457 Feb, [facility] [place] [facility] [address] [id number] [place] [address]- 2823 Feb, [facility] [place] [facility] [address] [id number] [place] [address]- 6329 Feb, [facility] [place] [facility] [address] [id number] [place] [address]- 5314 Feb, [facility] [place] [facility] [address] [id number] [place] [address]- 6121 Feb, [facility] [place] [facility] [address] [id number] [place] [address]- 4378 Jan, [facility] [place] [facility] [address] [id number] [place] [address]- 1218 Dec, [facility] [place] [facility] [address] [id number] [place] [address]- 5705 Dec, [facility] [place] [facility] [address] [id number] [place] [address]- 2821 Dec, [facility] [place] [facility] [address] [id number] [place] [address]- 0593 Dec, [facility] [place] [facility] [address] [id number] [place] [address]- 8483 Dec, [facility] [place] [facility] [address] [id number] [place] [address]- 0850 18 Dec, 2012 [facility] [place] [facility] [address] [id number] [place] [address]- 4914 17 Dec, 2012 [facility] [place] [facility] [address] [id number] [place] [address]- 1049 12 Dec, 2012 [facility] [place] [facility] [address] [id number], [place] [address] Dec, [facility] [address] [facility] [id number] [place] [address]- 5933 November, [facility] [address] [facility] [id number], [place] [address]- 9226 November, [facility] [address] [facility] [id number] [place] [address]- 7836 Oct, [facility] [address] [facility] [id number], [place] [address]- 2206 Sep, [facility] [address] [facility] [id number] [place] [address]- 2931 Sep, [facility] [address] [facility] [id number], [place] [address]- 2922 Sep, [facility] [address] [facility] [id number], [place] [address]- 7215 Sep, [facility] [address] [facility] [id number], [place] [address]- 4615 Aug, [facility] [address] [facility] [id number], [place] [address]- 8196 Aug, [facility] [address] [facility] [id number][place] [address]- 2463 Jul, [facility] [address] [facility] [id number], [place] [address]- 9668 Jul, [facility] [address] [facility] [id number], [place] [address]- 8481 Jul, [facility] [address] [facility] [id number], [place] [address]- 4455 Sep, [facility] [address] [facility] [id number], [place] [address]- [address]384 17 Sep, 2011 [facility] [address] [facility] [id number], [place] [address]- 6932 10 Sep, 2011 IMMUNIZATIONS No Known Immunizations SOCIAL HISTORY Never Assessed REASON FOR VISIT PLAN OF CARE VITAL SIGNS MEDICATIONS Unknown [...] Large bowel obstruction, Dehydration-VC 01/01/17 Hospitalization History [facility]- UTI/Sepsis 01/18/2018
--- OUTSIDE RECORDS SUMMARY | 2018-06-09 17:26 | XMS REPORT ---
Author Author LINDA BENTLEY Organization [facility] Address [address] [place] [address] Care Team Providers Care Furniture Sander Name Role Phone LINDA BENTLEY Unavailable PROBLEMS Type Condition ICD9-CM Code SOM84-HA Code Onset Dates Condition Status SNOMED Code Problem Abdominal pain, left lower quadrant R10.32 Active 949439517 Problem Mood disorder F39 Active 53114945 Problem Hypertension, benign I10 Active 30493902 Problem Chronic pain syndrome G89.4 Active 739219669 Problem Attention to urostomy Z43.6 Active 655782409 Problem Anxiety F41.9 Active 42672169 Problem Neuropathy G62.9 Active 672746091 Problem Malignant neoplasm of colon, unspecified part of colon C18.9 Active 397470710 Problem Polyneuropathy G62.9 Active 67912949 Problem Incontinence of feces, unspecified fecal incontinence type R15.9 Active 62876243 Problem Chronic fatigue, unspecified R53.82 Active 588605329 Problem Hydronephrosis with ureteral stricture, not elsewhere classified N13.1 Active 84011094 Problem Primary insomnia F51.01 Active 444213888 Problem 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 955672223 ALLERGIES No Information ENCOUNTERS Encounter Location Date Diagnosis [place] [id number] [place] [address] 76871- 5872 November, Medicare annual wellness visit, initial Z00.00 [place] [id number] [address] 6932 Oct, [place] [id number] [place] [address] 47155- 3250 Oct, [place] [id number] [address] 0556 Oct, Mood disorder F39 ; Attention to urostomy Z43.6 ; Chronic pain syndrome G89.4 and Polyneuropathy G62.9 [facility] [id number] [place] [address] 17044- 2413 Sep, Polyneuropathy G62.9 [facility] [id number] [place] [address] 17626- 4096 Sep, [facility] [id number] [place] [address] 94996- 6294 Sep, Polyneuropathy G62.9 [facility] [id number] [place] [address] 74084- 0304 Aug, Polyneuropathy G62.9 [facility] [id number] [place] [address] 86768- 7698 Aug, Malignant neoplasm of colon, unspecified part of colon C18.9 and Polyneuropathy G62.9 [facility] [id number] [place] [address] 84603- 0291 Aug, Neuropathy G62.9 and Polyneuropathy G62.9 [facility] [id number] [place] [address] 91429- 5836 Jul, Encounter for drug screening Z02.83 [facility] [id number] [place] [address] 73242- 8490 Jul, Polyneuropathy G62.9 [facility] [id number] [place] [address] 15058- 6029 Jul, [facility] [id number] [place] [address] 10439- 7946 Jul, Neuropathy G62.9 and Anxiety F41.9 [facility] [id number] [place] [address] 18884- 7701 Jul, [facility] [id number] [place] [address] 75878- 8937 Jul, [facility] [id number] [place] [address] 62316- 2677 Jul, [facility] [address] [address]- 3274 Jul, Polyneuropathy G62.9 [facility] [address] [address]- 3913 Jul, [facility] [address]100[place], [place] [address]- 7221 Jun, [facility] [address], [place] [address]- 5798 Jun, [facility] [id number] [place] [address] 55059- 9143 Jun, [facility] [id number] [address] 07 Jun, 2017 Encounter for dental examination Z01.20 [facility] [address], [place] [address]- 4264 04 Jun, 2017 Polyneuropathy G62.9 and Anxiety F41.9 [facility] [address], [place] [address]- 6943 Jun, [facility] [id number] [address] May, Dental examination Z01.20 [facility] [address], [place] [address]- 4946 May, Polyneuropathy G62.9 [facility] [address], [place] [address]- 9796 Apr, Polyneuropathy G62.9 [facility] [address], [place] [address]- 7385 Apr, Polyneuropathy G62.9 [facility] [address], [place] [address]- 3820 Apr, Hypertension, benign I10 ; Polyneuropathy G62.9 and Anxiety F41.9 [facility] [id number] [place] [address] 85047- 7644 Apr, Primary insomnia F51.01 and Polyneuropathy G62.9 [facility] [id number] [place] [address] 43199- 4365 Apr, Primary insomnia F51.01 and Polyneuropathy G62.9 [facility] [id number] [place] [address] 22029- 4071 Mar, Primary insomnia F51.01 [facility] [id number] [place] [address] 76844- 1490 Mar, [facility] [id number] [place] [address] 06363- 3881 Mar, Polyneuropathy G62.9 [facility] [id number] [place] [address] 92234- 7642 Feb, Primary insomnia F51.01 [facility] [id number] [place] [address] 22188- 8691 Feb, [facility] [id number] [place] [address] 51674- 2139 Feb, [facility] [id number] [place] [address] 43716- 6897 Feb, Polyneuropathy G62.9 [facility] [id number] [place] [address] 57847- 2797 Feb, Primary insomnia F51.01 [facility] [id number] [place] [address] 57585- 9242 Jan, [facility] [id number] [place] [address] 07490- 5344 Jan, [facility] [id number] [place] [address] 29415- 1678 Dec, [facility] [id number] [place] [address] 37527- 3294 Dec, Primary insomnia F51.01 [facility] [address]005[address] [address]- 5966 Dec, Primary insomnia F51.01 [facility] [address], [place] [address]- 0529 Dec, [facility] [id number] [place] [address] 61619- 8977 Dec, [facility] [id number] [place] [address] 34395- 8599 Dec, [facility] [id number] [place] [address] 71816- 9993 Dec, [facility] [id number] [place] [address] 38946- 3181 November, Primary insomnia F51.01 and Polyneuropathy G62.9 [facility] [id number] [place] [address] 28164- 0401 November, [facility] [id number] [place] [address] 43700- 6086 November, Abdominal pain, left lower quadrant R10.32 [facility] [address]005[address], [place] [address]- 1411 November, [facility] [address]005[address], [place] [address]- 7668 Oct, [facility] [address], [place] [address]- 8225 Oct, Abdominal pain, left lower quadrant R10.32 ; 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 and Neuropathy G62.9 [facility] [address], [place] [address]- 8819 Oct, [facility] [address]005[address], [place] [address]- 9658 Sep, [facility] [id number] [address] Sep, [facility] [id number] [place] [address] 15664- 2444 Sep, [facility] [id number] [place] [address] 15802- 3534 Aug, [facility] [id number] [place] [address] 75889- 9697 Aug, [facility] [id number] [place] [address] 974778- 4584 Aug, Abdominal pain, left lower quadrant R10.32 ; Neuropathy G62.9 and Anxiety F41.9 [facility] [address] [place] [address] Jul, [facility] [id number] [place] [address] 05958- 5487 Jul, [facility] [id number] [place] [address] 03980 -5740 Jul, [facility] [id number] [place] [address] 25481- 2447 Jul, [facility] [address] [address]- 1097 Jul, [facility] [address], [place] [address]- 9187 Jun, [facility] [address] [address]- 0450 May, [facility] [address], [place] [address]- 1113 May, [facility] [address], [place] [address]- 2353 Apr, [facility] [address], [place] [address]- 2245 Apr, Muscle spasms of both lower extremities M62.838 and Cellulitis, unspecified cellulitis site L03.90 [facility] [id number] [place] [address] 10908- 6283 07 Apr, 2016 [facility] [id number] [place] [address] 78756- 3420 23 Mar, 2016 Generalized abdominal pain R10.84 [facility] [id number] [place] [address] 42808- 4064 20 Mar, 2016 [facility] [id number] [place] [address] 45788- 3859 14 Mar, 2016 [facility] [id number] [place] [address] 90692- 3691 14 Mar, 2016 [facility] [id number] [place] [address] 54838- 9137 13 Mar, 2016 [facility] [id number] [place] [address] 45148- 9809 12 Mar, 2016 [facility] [id number] [place] [address] 93966- 1838 09 Mar, 2016 [facility] [id number] [place] [address] 84979- 8183 06 Mar, 2016 [facility] [id number] [place] [address] 82696- 4924 17 Feb, 2016 Other specified diseases of anus and rectum K62.89 [facility] [id number] [place] [address] 12526- 3864 Feb, [facility] [id number] [place] [address] 64679- 2816 Feb, Dizziness R42 [facility] [id number] [place] [address] 70804- 4507 08 Feb, 2016 [facility] [id number] [place] [address] 41826- 0312 Jan, Polyneuropathy G62.9 [facility] [id number] [place] [address]- 9299 Jan, Other specified diseases of anus and rectum K62.89 [facility] [address] [id number] [place] [address]- 8054 Jan, [facility] [address] [id number] [place] [address]2794 Jan, [facility] [address] [id number] [place] [address]- 3388 Jan, [facility] [address] [id number] [place] [address]- 5578 Jan, Dizziness R42 [facility] [address] [id number] [place] [address]- 9165 Dec, [facility] [address] [id number] [place] [address]- 4604 Dec, [facility] [address] [id number] [place] [address]- 4108 Dec, [facility] [address] [id number] [place] [address]- 3728 Dec, Dizziness R42 [facility] [address] [id number] [place] [address]- 3109 November, [facility] [address] [id number] [place] [address]- 8867 Oct, [facility] [address] [id number] [place] [address]- 1600 Oct, [facility] [address] [id number] [place] [address]- 1718 Oct, [facility] [address] [id number] [place] [address]- 5214 Oct, [facility] [address] [id number] [place] [address]- 1449 Sep, [facility] [address] [address]- 1576 14 Sep, 2015 Primary insomnia F51.01 [facility] [id number] [place] [address] 57322- 8234 Sep, Primary insomnia F51.01 [facility] [id number] [place] [address] 23350- 3347 Sep, [facility] [id number] [place] [address] 98158- 0446 Aug, [facility] [id number] [place] [address] 33152- 0345 Aug, [facility] [id number] [place] [address] 51064- 9595 Aug, Primary insomnia F51.01 ; Mood disorder F39 ; Nausea and vomiting, unspecified intactability, vomiting of unspecified type R11.2 and Diarrhea R19.7 [facility] [id number] [place] [address] 31962- 6793 Aug, [facility] [id number] [place] [address] 34292- 9631 Aug, Folliculitis L73.9 [facility] [address] [place] [address] 16112- 7792 Aug, [facility] [id number] [place] [address] 73914- 1763 Aug, [facility] [address] [place] [address] 19553- 5251 Jul, Folliculitis L73.9 [facility] [id number] [place] [address] 07812- 4001 Jul, [facility] [address] [place] [address] 77562- 2048 Jun, Folliculitis L73.9 [facility] [id number] [place] [address] 02651- 4725 Jun, [facility] [address] [place] [address] 83316- 1592 May, Polyneuropathy G62.9 [facility] [address] [place] [address] 97581- 8294 May, Other specified diseases of anus and rectum K62.89 [facility] [id number] [place] [address] 75102- 6582 May, [facility] [id number] [place] [address] 40604- 1047 May, Primary insomnia F51.01 [facility] [id number] [place] [address] 52074- 7398 May, [facility] [id number] [place] [address] 85693- 3979 May, [facility] [id number] [place] [address] 06670- 4732 Apr, Other specified diseases of anus and rectum K62.89 ; Chronic fatigue R53.82 ; Urinary tract infection, site not specified N39.0 and Enterococcus as the cause of diseases classified elsewhere B95.2 [facility] [address] [address]- 6009 16 Apr, 2015 [facility] [address] [place] [address] 77766- 2137 Apr, [facility] [id number] [place] [address] 74317- 9091 14 Apr, 2015 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 [facility] [id number] [place] [address] 51041- 8563 05 Apr, 2015 [facility] [address] [place] [address] 00319- 5628 Mar, [facility] [id number] [place] [address] 53007- 8602 23 Mar, 2015 [facility] [address] [facility] [id number] [place] [address]- 7370 17 Mar, 2015 [facility] [address], [place] [address]- 254 14 Mar, 2015 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 [facility] [address] [facility] [id number][place] [address]- 0466 12 Mar, 2015 [facility] [address] [facility] [id number], [place] [address]- 8589 11 Mar, 2015 [facility] [address] [facility] [id number] [place] [address] 43061- 5397 11 Mar, 2015 [facility] [address] [address]- 7568 10 Mar, 2015 [facility] [id number] [place] [address] 28757- 3279 Feb, [facility] [address], [place] [address]- 7434 Feb, [facility] [address], [place] [address]- 1450 Feb, [facility] [address], [place] [address]- 8826 30 Jan, 2015 [facility] [address], [place] [address]- 1475 27 Jan, 2015 Nausea 787.02 and Neuropathy 355.9 [facility] [id number] [address]- 9012 Jan, [facility] [address], [place] [address]- 2436 Jan, [facility] [address] [id number], [place] [address]- 2548 16 Jan, 2015 [facility] [id number] [id number] Jan, Dental examination V72.2 [facility] [address] [id number] [place] [address]- 3236 Jan, [facility] [address] [id number], [place] [address]- 1026 Dec, [facility] [address] [facility] [id number], [place] [address]- 3026 Dec, [facility] [place] [facility] [address] [facility] [id number][place] [address]- 4976 Dec, Neuropathy 355.9 [facility] [address] [facility] [id number], [place] [address]- 0906 November, [facility] [address] [facility] [id number], [place] [address]- 3336 November, [facility] [address] [facility] [id number], [place] [address]- 0166 November, [facility] [address] [facility] [id number][place] [address]- 2021 Oct, [facility] [address] [facility] [id number], [place] [address]- 9886 Oct, [facility] [address] [facility] [id number][place] [address]- 4396 Sep, [facility] [place] [facility] [address] [facility] [id number], [place] [address]- 9356 Sep, [facility] [place] [facility] [address] [facility] [id number], [place] [address]- 2546 Sep, [facility] [place] [facility] [address] [facility] [id number], [place] [address]- 5236 Sep, [facility] [place] [facility] [address] [facility] [id number], [place] [address] 2546 Sep, [facility] [place] [facility] [address] [facility] [id number][place] [address] 2546 Sep, [facility] [place] [facility] [address] [id number] [place] [address]- 4348 Sep, [facility] [place] [facility] [address] [id number] [place] [address]- 2721 Sep, [facility] [place] [facility] [address] [id number] [place] [address]- 7482 Aug, 2014 [facility] [place] [facility] [address] [id number] [place] [address]- 8649 Aug, 2014 [facility] [place] [facility] [address] [id number] [place] [address]- 2941 Aug, 2014 [facility] [place] [facility] [address] [id number] [place] [address] Aug, 2014 [facility] [place] [facility] [address] [facility] [id number] [place] [address] Aug, 2014 [facility] [place] [facility] [address] [id number] [place] [address] Aug, 2014 [facility] [place] [facility] [address] [id number] [place] [address] Aug, 2014 [facility] [place] [facility] [address] [facility] [id number] [place] [address] Aug, [facility] [place] [facility] [address] [facility] [id number] [place] [address] Jul, [facility] [place] [facility] [address] [id number] [place] [address] Jul, [facility] [place] [facility] [address] [id number] [place] [address] Jun, [facility] [place] [facility] [address] [id number] [place] [address] Jun, [facility] [place] [facility] [address] [facility] [id number] [place] [address] Jun, [facility] [place] [facility] [address] [id number] [place] [address] Jun, [facility] [place] [facility] [address] [id number] [place] [address] Jun, [facility] [place] [facility] [address] [id number] [place] [address] Jun, [facility] [place] [facility] [address] [id number] [place] [address] Jun, [facility] [place] [facility] [address] [id number] [place] [address] Jun, [facility] [place] [facility] [address] [id number] [place] [address] Jun, [facility] [place] [facility] [address] [id number] [place] [address] Jun, [facility] [place] [facility] [address] [id number] [place] [address] Jun, [facility] [place] [facility] [address] [id number] [place] [address] May, [facility] [place] [facility] [address] [id number] [place] [address] May, [facility] [place] [facility] [address] [id number] [place] [address] May, [facility] [place] [facility] [address] [id number] [place] [address] May, [facility] [place] [facility] [address] [id number] [address] May, [facility] [place] [facility] [address] [id number] [place] [address] May, [facility] [place] [facility] [address] [id number] [place] [address] May, [facility] [place] [facility] [address] [id number] [place] [address] May, [facility] [place] [facility] [address] [id number] [place] [address] May, [facility] [place] [facility] [address] [id number] [place] [address] Apr, [facility] [place] [facility] [address] [id number] [place] [address] Apr, [facility] [place] [facility] [address] [id number] [place] [address] Apr, [facility] [place] [facility] [address] [id number] [place] [address] Apr, [facility] [place] [facility] [address] [id number] [place] [address] Apr, [facility] [place] [facility] [address] [id number] [place] [address] Mar, [facility] [place] [facility] [address] [id number] [place] [address] Mar, [facility] [place] [facility] [address] [id number] [place] [address] Feb, [facility] [place] [facility] [address] [id number] [place] [address] Feb, [facility] [place] [facility] [address] [id number] [place] [address] Feb, [facility] [place] [facility] [address] [id number] [place] [address] Feb, [facility] [place] [facility] [address] [id number] [place] [address] Feb, [facility] [place] [facility] [address] [id number] [place] [address] Feb, [facility] [place] [facility] [address] [id number] [place] [address] Jan, [facility] [place] [facility] [address] [id number] [place] [address] Jan, [facility] [place] [facility] [address] [id number] [place] [address] Jan, [facility] [place] [facility] [address] [id number] [place] [address] Jan, [facility] [place] [facility] [address] [id number] [place] [address] Jan, [facility] [place] [facility] [address] [id number] [place] [address] Jan, [facility] [place] [facility] [address] [id number] [place] [address] Jan, [facility] [place] [facility] [address] [id number] [place] [address] Jan, [facility] [place] [facility] [address] [id number] [place] [address] Jan, [facility] [place] [facility] [address] [id number] [place] [address] Jan, [facility] [place] [facility] [address] [id number] [place] [address] Jan, [facility] [place] [facility] [address] [id number] [place] [address] Dec, [facility] [place] [facility] [address] [id number] [place] [address] Dec, [facility] [place] [facility] [address] [id number] [place] [address] Dec, [facility] [place] [facility] [address] [id number] [place] [address] Dec, [facility] [place] [facility] [address] [id number] [place] [address]27 Dec, [facility] [place] [facility] [address] [id number] [place] [address] Dec, [facility] [place] [facility] [address] [id number] [place] [address] November, [facility] [address] [id number] [place] [address] 46[address] November, [facility] [place] [facility] [address] [id number] [place] [address] November, [facility] [address] [id number] [place] [address] November, [facility] [place] [facility] [address] [id number] [place] [address] November, [facility] [place] [facility] [address] [id number] [place] [address] November, [facility] [place] [facility] [address] [id number] [place] [address] 23[address] Oct, [facility] [place] [facility] [address] [id number] [place] [address] 8710 Oct, [facility] [address] [id number] [place] [address] 1155 Oct, [facility] [place] [facility] [address] [id number] [place] [address] Oct, [facility] [address] [id number] [place] [address] Sep, [facility] [place] [facility] [address] [id number] [place] [address] 2193 Sep, [facility] [place] [facility] [address] [id number] [place] [address] 5870 Sep, [facility] [place] [facility] [address] [id number] [place] [address]36 Sep, [facility] [place] [facility] [address] [id number] [place] [address] Sep, [facility] [place] [facility] [address] [id number] [place] [address] Aug, [facility] [address] [id number] [place] [address]68 Aug, [facility] [address] [id number] [place] [address] Aug, [facility] [address] [id number] [place] [address] Aug, [facility] [address] [id number] [place] [address] Aug, [facility] [address] [place] [id number] May, [facility] [address] [id number] [place] [address] May, [facility] [address] [id number] [place] [address] 6069 May, [facility] [address] [id number] [place] [address] May, [facility] [address] [id number] [place] [address] May, [facility] [address] [id number] [place] [address] Apr, [facility] [address] [id number] [place] [address]- 0146 Apr, [facility] [address] [id number], [place] [address] Apr, [facility] [address] [id number] [place] [address] Apr, [facility] [address] [id number] [place] [address] Apr, [facility] [address] [id number] [place] [address]- [address]26 Apr, [facility] [address] [id number], [place] [address] Apr, [facility] [place] [facility] [address] [id number] [place] [address]- [address] 28 Mar, 2013 [facility] [place] [facility] [address] [id number] [place] [address]- 8620 Mar, [facility] [place] [facility] [address] [id number] [place] [address]- [address] 24 Mar, 2013 [facility] [place] [facility] [address] [id number] [place] [address]- 4841 16 Mar, 2013 [facility] [place] [facility] [address] [id number] [place] [address]- 8[address] Mar, [facility] [place] [facility] [address] [id number] [place] [address]- 2614 Mar, [facility] [place] [facility] [address] [id number] [place] [address] Feb, [facility] [place] [facility] [address] [id number] [place] [address]- 1707 Feb, [facility] [place] [facility] [address] [id number] [place] [address] Feb, [facility] [place] [facility] [address] [id number] [place] [address] Feb, [facility] [place] [facility] [address] [id number] [place] [address] 8417 Feb, [facility] [place] [facility] [address] [id number] [place] [address] 4[address] Feb, [facility] [place] [facility] [address] [id number] [place] [address]- 5[address] Jan, [facility] [place] [facility] [address] [id number] [place] [address]- [address]907 Dec, [facility] [place] [facility] [address] [id number] [place] [address]- 8399 Dec, [facility] [place] [facility] [address] [id number] [place] [address]- 96[address] 20 Dec, 2012 [facility] [address] [id number] [place] [address]- [address] Dec, [facility] [address] [id number] [place] [address]- [address]32 19 Dec, 2012 [facility] [address] [id number] [place] [address]- 7204 18 Dec, 2012 [facility] [address] [id number] [place] [address]- 8094 17 Dec, 2012 [facility] [address] [id number] [place] [address]- 3708 Dec, [facility] [address] [id number] [place] [address]- 4928 Dec, [facility] [address] [id number] [place] [address]- 0871 November, [facility] [address] [id number] [place] [address]- 8057 November, [facility] [address] [id number] [place] [address]- 9028 Oct, [facility] [address] [facility] [id number] [place] [address]- 4263 Sep, [facility] [place] [facility] [address] [id number] [place] [address]- 9703 Sep, [facility] [address] [id number] [place] [address]- 1167 15 Sep, 2012 [facility] [place] [facility] [address] [id number] [place] [address]- 9406 Sep, [facility] [address] [id number] [place] [address]- [address] Aug, [facility] [address] [id number] [place] [address]- 1283 Aug, [facility] [address] [facility] [id number], [place] [address] Jul, [facility] [address] [facility] [id number], [place] [address] Jul, [facility] [address] [facility] [id number], [place] [address]- [address] Jul, [facility] [address] [facility] [id number], [place] [address]- 8786 Sep, [facility] [address] [facility] [id number], [place] [address]- [address] Sep, [facility] [address] [facility] [id number], [place] [address] Sep, IMMUNIZATIONS No Known Immunizations SOCIAL HISTORY Never Assessed REASON FOR VISIT Percocet refill PLAN OF CARE VITAL SIGNS MEDICATIONS Medication [...]
--- OUTSIDE RECORDS SUMMARY | 2018-06-09 17:26 | XMS REPORT ---
Author Author LINDA BENTLEY Organization [facility] Address [address] [place] [address] Care Team Providers Care Supervisor Porcelain Department Name Role Phone LINDA BENTLEY Unavailable PROBLEMS Type Condition ICD9-CM Code [id number] Code Onset Dates Condition Status SNOMED Code Problem Abdominal pain, left lower quadrant R10.32 Active 435492626 Problem Mood disorder F39 Active 37097264 Problem Hypertension, benign I10 Active 07390960 Problem Chronic pain syndrome G89.4 Active 925050507 Problem Attention to urostomy Z43.6 Active 069084727 Problem Anxiety F41.9 Active 72407772 Problem Neuropathy G62.9 Active 940321574 Problem Malignant neoplasm of colon, unspecified part of colon C18.9 Active 019084702 Problem Polyneuropathy G62.9 Active 39378915 Problem Incontinence of feces, unspecified fecal incontinence type R15.9 Active 43384357 Problem Chronic fatigue, unspecified R53.82 Active 916614852 Problem Hydronephrosis with ureteral stricture, not elsewhere classified N13.1 Active 97500822 Problem Primary insomnia F51.01 Active 042679820 Problem 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 769199764 ALLERGIES No Information ENCOUNTERS Encounter Location Date Diagnosis [place] [id number], [place] [address] Dec, [place] [id number], [place] [address] November, Medicare annual wellness visit, initial Z00.00 [place] [address], [place] [address] November, Mood disorder F39 [facility] [id number], [place] [address] 0872 Oct, Polyneuropathy G62.9 [place] [id number] [place] [address] 84194- 7496 Oct, [facility] [address] [address]- 0861 Oct, [facility] [id number] [place] [address] 17857- 5103 Oct, Mood disorder F39 ; Attention to urostomy Z43.6 ; Chronic pain syndrome G89.4 and Polyneuropathy G62.9 [facility] [id number] [place] [address] 24367- 1299 Sep, Polyneuropathy G62.9 [facility] [address] [address]- 1242 Sep, [facility] [address] 7[address]28- 5556 Sep, Polyneuropathy G62.9 [facility] [address] 92305- 3123 Aug, Polyneuropathy G62.9 [facility] [id number] [place] [address] 68574- 9241 Aug, Malignant neoplasm of colon, unspecified part of colon C18.9 and Polyneuropathy G62.9 [facility] [id number] [place] [address] 41046- 3880 Aug, Neuropathy G62.9 and Polyneuropathy G62.9 [facility] [id number] [place] [address] 55441- 6676 Jul, Encounter for drug screening Z02.83 [facility] [address] [address]- 7853 Jul, Polyneuropathy G62.9 [facility] [id number] [place] [address] 59731- 5610 Jul, [facility] [address] 94337- 8151 Jul, Neuropathy G62.9 and Anxiety F41.9 [facility] [id number] [place] [address] 66469- 7113 Jul, [facility] [id number] [place] [address] 07530- 5238 Jul, [facility] [id number] [place] [address] 86840- 3320 Jul, [facility] [id number] [place] [address] 75937- 1992 Jul, Polyneuropathy G62.9 [facility] [id number] [place] [address] 92650- 8163 Jul, [facility] [id number] [place] [address] 81977- 7010 Jun, [facility] [id number] [place] [address] 62083- 9916 Jun, [facility] [id number] [place] [address] 75407- 6884 Jun, [facility] [id number] [place] [address] Jun, Encounter for dental examination Z01.20 [facility] [id number] [place] [address] 07862- 1210 Jun, Polyneuropathy G62.9 and Anxiety F41.9 [facility] [id number] [place] [address] 36205- 9775 Jun, [facility] [id number] [place] [address] May, Dental examination Z01.20 [facility] [id number] [place] [address] 20635- 1584 06 May, 2017 Polyneuropathy G62.9 [facility] [id number] [place] [address] 86200- 4361 Apr, Polyneuropathy G62.9 [facility] [id number] [place] [address] 85077- 0964 Apr, Polyneuropathy G62.9 [facility] [id number] [place] [address] 94142- 5575 Apr, Hypertension, benign I10 ; Polyneuropathy G62.9 and Anxiety F41.9 [facility] [id number] [place] [address] 85448- 4215 Apr, Primary insomnia F51.01 and Polyneuropathy G62.9 [facility] [address] 87243- 6183 Apr, Primary insomnia F51.01 and Polyneuropathy G62.9 [facility] [id number] [place] [address] 78791- 7592 Mar, Primary insomnia F51.01 [facility] [id number] [place] [address] 70675- 2254 Mar, [facility] [address] 53623- 1817 Mar, Polyneuropathy G62.9 [facility] [id number] [place] [address] 41311- 7000 Feb, Primary insomnia F51.01 [facility] [id number] [place] [address] 31466- 7617 Feb, [facility] [id number] [place] [address] 20943- 7930 Feb, [facility] [id number] [place] [address] 17698- 7426 Feb, Polyneuropathy G62.9 [facility] [id number] [place] [address] 25170- 9909 Feb, Primary insomnia F51.01 [facility] [address], [place] [address] 6912 Jan, [facility] [address] [place] [address]- 9958 Jan, [facility] [id number] [place] [address], [place] [address]- 0167 Dec, [facility] [id number] [place] [address] 07852- 3026 Dec, Primary insomnia F51.01 [facility] [id number] [place] [address] 38872- 8487 Dec, Primary insomnia F51.01 [facility] [id number] [place] [address], [place] [address]- 5821 Dec, [facility] [id number] [place] [address], [place] [address]- 9222 Dec, [facility] [id number] [place] [address] 35879- 5196 Dec, [facility] [id number] [place] [address] 15737- 3917 Dec, [facility] [id number] [place] [address] 99996- 2280 November, Primary insomnia F51.01 and Polyneuropathy G62.9 [facility] [address], [place] [address]- 4084 November, [facility] [address], [place] [address]- 2791 November, Abdominal pain, left lower quadrant R10.32 [facility] [address] [place] [address]- 9827 November, [facility] [address], [place] [address]- 5450 Oct, [facility] [id number] [place] [address] 09260- 7124 Oct, Abdominal pain, left lower quadrant R10.32 ; 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 and Neuropathy G62.9 [facility] [id number] [place] [address] 36742- 3931 Oct, [facility] [id number] [place] [address] 76715- 7374 Sep, [facility] [id number] [place] [address] [id number] Sep, [facility] [id number] [place] [address] 10088- 6132 Sep, [facility] [id number] [place] [address] 43715- 1842 Aug, [facility] [id number] [place] [address] 71093- 7453 Aug, [facility] [id number] [place] [address] 20503- 6772 Aug, Abdominal pain, left lower quadrant R10.32 ; Neuropathy G62.9 and Anxiety F41.9 [facility] [address] [place] [address] Jul, [facility] [id number] [place] [address] 98850- 4791 Jul, [facility] [id number] [place] [address] 94131 -4653 Jul, [facility] [id number] [place] [address] 46324- 0441 Jul, [facility] [id number] [place] [address] 99231- 7094 Jul, [facility] [id number] [place] [address] 24006- 3430 Jun, [facility] [id number] [place] [address] 99788- 9996 May, [facility] [address] [facility] [id number] [address]- 5445 May, [facility] [id number] [place] [address] 95606- 1836 Apr, [facility] [address], [place] [address]- 6602 Apr, Muscle spasms of both lower extremities M62.838 and Cellulitis, unspecified cellulitis site L03.90 [facility] [address] [facility] [id number] [address]- 7012 Apr, [facility] [id number] [place] [address] 24015- 0901 23 Mar, 2016 Generalized abdominal pain R10.84 [facility] [id number] [place] [address] 79487- 8579 20 Mar, 2016 [facility] [id number] [place] [address] 15843- 6218 14 Mar, 2016 [facility] [id number], [place] [address]- 2193 14 Mar, 2016 [facility] [address], [place] [address]- 7853 13 Mar, 2016 [facility] [address], [place] [address]- 3234 12 Mar, 2016 [facility] [address], [place] [address]- 7284 09 Mar, 2016 [facility] [id number], [place] [address]- 2540 06 Mar, 2016 [facility] [address], [place] [address]- 5033 17 Feb, 2016 Other specified diseases of anus and rectum K62.89 [facility] [address], [place] [address]- 7673 15 Feb, 2016 [facility] [address] [place] [address]- 9321 Feb, Dizziness R42 [facility] [id number] [place] [address], [place] [address]- 7257 Feb, [facility] [id number] [place] [address] 74758- 3149 Jan, Polyneuropathy G62.9 [facility] [id number] [place] [address], [place] [address]- 9677 Jan, Other specified diseases of anus and rectum K62.89 [facility] [id number] [place] [address], [place] [address]- 6205 Jan, [facility] [id number] [place] [address] 09386 -0372 Jan, [facility] [id number] [place] [address] 56865- 0779 Jan, [facility] [id number] [place] [address] 72970- 9186 Jan, Dizziness R42 [facility] [id number] [place] [address], [place] [address]- 1805 Dec, [facility] [id number] [place] [address] 20529- 8828 Dec, [facility] [id number] [place] [address] 59847- 6750 Dec, [facility] [id number] [place] [address] 28963- 4704 Dec, Dizziness R42 [facility] [id number] [place] [address], [place] [address]- 2475 November, [facility] [id number], [place] [address]- 5419 Oct, [facility] [id number] [place] [address] 10460- 2367 Oct, [facility] [id number] [place] [address] 62512- 9268 Oct, [facility] [id number] [place] [address] 85760- 8225 Oct, [facility] [id number] [place] [address] 43776- 8503 Sep, [facility] [id number] [place] [address] 71919- 9649 Sep, Primary insomnia F51.01 [facility] [id number] [place] [address] 90149- 4422 Sep, Primary insomnia F51.01 [facility] [id number] [place] [address] 40741- 8756 Sep, [facility] [id number] [place] [address] 48547- 8335 Aug, [facility] [id number] [place] [address] 01749- 0419 Aug, [facility] [id number] [place] [address] 90779- 3075 Aug, Primary insomnia F51.01 ; Mood disorder F39 ; Nausea and vomiting, unspecified intactability, vomiting of unspecified type R11.2 and Diarrhea R19.7 [facility] [id number] [place] [address] 31043- 2828 Aug, [facility] [id number] [place] [address] 58075- 6950 Aug, Folliculitis L73.9 [facility] [id number] [place] [address] 61384- 4491 Aug, [facility] [id number] [place] [address] 28714- 1199 Aug, [facility] [id number] [place] [address] 78330- 2195 Jul, Folliculitis L73.9 [facility] [id number] [place] [address] 66033- 8155 Jul, [facility] [address] [place] [address] 19980- 0941 Jun, Folliculitis L73.9 [facility] [id number] [place] [address] 02341- 8410 Jun, [facility] [id number] [place] [address] 12886- 6656 May, Polyneuropathy G62.9 [facility] [id number] [place] [address] 06657- 2987 May, Other specified diseases of anus and rectum K62.89 [place] [id number] [place] [address] 76832- 4727 May, [facility] [id number] [place] [address] 78636- 4444 May, Primary insomnia F51.01 [facility] [id number] [place] [address] 40708- 7491 May, [facility] [address] [place] [address] 84596- 0600 May, [facility] [address] [place] [address] 64319- 9138 Apr, Other specified diseases of anus and rectum K62.89 ; Chronic fatigue R53.82 ; Urinary tract infection, site not specified N39.0 and Enterococcus as the cause of diseases classified elsewhere B95.2 [facility] [id number] [place] [address] 52925- 4409 16 Apr, 2015 [facility] [address] [place] [address] 46529- 3315 Apr, [facility] [id number] [place] [address] 08075- 8928 14 Apr, 2015 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 [facility] [address] [facility] [id number], [place] [address]- 4376 05 Apr, 2015 [facility] [id number], [place] [address] 2546 26 Mar, 2015 [facility] [address] [facility] [id number] [place] [address] 05092 2546 23 Mar, 2015 [facility] [address] [facility] [id number] [place] [address] 04489 2546 17 Mar, 2015 [facility] [id number] [place] [address] 25065- 3281 14 Mar, 2015 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 [facility] [id number] [place] [address] 51927- 2876 12 Mar, 2015 [facility] [id number] [place] [address] 98845- 3009 11 Mar, 2015 [facility] [address] [place] [address] 48032- 2075 11 Mar, 2015 [facility] [id number] [place] [address] 11896- 9658 Mar, [facility] [address], [place] [address] 2549 Feb, [facility] [address], [place] [address]- 2544 Feb, [facility] [address], [place] [address] 2545 Feb, [facility] [id number] [place] [address] 43547 2546 Jan, [facility] [address], [place] [address] 2544 Jan, Nausea 787.02 and Neuropathy 355.9 [facility] [id number] [place] [address]- 4822 Jan, [facility] [address] [id number] [place] [address]- 5121 Jan, [facility] [place] [facility] [address] [facility] [id number] [place] [address] 2546 Jan, [facility] [address] [id number] [place] [id number] Jan, Dental examination V72.2 [facility] [place] [facility] [address] [id number] [place] [address] 2546 Jan, [facility] [place] [facility] [address] [id number] [place] [address]- 2708 Dec, [facility] [place] [facility] [address] [facility] [id number] [place] [address]- 6476 Dec, [facility] [address] [facility] [id number] [place] [address]- 3654 Dec, Neuropathy 355.9 [facility] [place] [facility] [address] [id number] [place] [address]- 2115 November, [facility] [address] [facility] [id number] [place] 3072 November, [facility] [place] [facility] [address] [facility] [id number] [place] [address]- 0849 November, [facility] [place] [facility] [address] [facility] [id number], [place] [address]- 2716 Oct, [facility] [place] [facility] [address] [id number] [place] [address] 2547 Oct, [facility] [place] [facility] [address] [id number] [place] [address] 2546 Sep, [facility] [place] [facility] [address] [id number] [place] [address] 2546 Sep, [facility] [place] [facility] [address] [facility] [id number] [place] [address]- 0419 Sep, [facility] [place] [facility] [address] [id number] [place] [address]- 7200 Sep, [facility] [place] [facility] [address] [id number] [place] [address]- 8170 Sep, [facility] [place] [facility] [address] [facility] [id number] [place] [address]- 6087 Sep, [facility] [place] [facility] [address] [id number] [place] [address]- 7572 Sep, [facility] [place] [facility] [address] [id number] [place] [address]- 3205 Sep, [facility] [place] [facility] [address] [id number] [place] [address]- 0665 Aug, 2014 [facility] [place] [facility] [address] [facility] [id number] [place] [address]- 3531 Aug, 2014 [facility] [place] [facility] [address] [facility] [id number] [place] [address]- 9294 Aug, 2014 [facility] [place] [facility] [address] [facility] [id number] [place] [address]- 3591 Aug, 2014 [facility] [place] [facility] [address] [facility] [id number] [place] [address]- 2905 Aug, [facility] [place] [facility] [address] [facility] [id number] [place] [address] Aug, 2014 [facility] [place] [facility] [address] [facility] [id number] [place] [address] Aug, 2014 [facility] [place] [facility] [address] [facility] [id number] [place] [address] Aug, [facility] [place] [facility] [address] [facility] [id number] [place] [address] Jul, [facility] [place] [facility] [address] [facility] [id number] [place] [address] Jul, [facility] [place] [facility] [address] [id number] [place] [address] Jun, [facility] [place] [facility] [address] [id number] [place] [address] Jun, [facility] [place] [facility] [address] [id number] [place] [address] Jun, [facility] [place] [facility] [address] [id number] [place] [address] Jun, [facility] [place] [facility] [address] [id number] [place] [address] Jun, [facility] [place] [facility] [address] [id number] [place] [address] Jun, [facility] [place] [facility] [address] [id number] [place] [address] Jun, [facility] [place] [facility] [address] [id number] [place] [address] Jun, [facility] [place] [facility] [address] [id number] [place] [address] Jun, [facility] [place] [facility] [address] [id number] [place] [address] Jun, [facility] [place] [facility] [address] [id number] [place] [address] Jun, [facility] [place] [facility] [address] [id number] [place] [address] May, [facility] [place] [facility] [address] [id number] [place] [address]- [address] May, [facility] [place] [facility] [address] [id number] [place] [address] May, [facility] [place] [facility] [address] [id number] [place] [address] May, [facility] [place] [facility] [address] [id number] [place] [address] May, [facility] [place] [facility] [address] [id number] [place] [address] May, [facility] [place] [facility] [address] [id number] [place] [address] May, [facility] [place] [facility] [address] [id number] [place] [address] May, [facility] [place] [facility] [address] [id number] [place] [address] May, [facility] [place] [facility] [address] [id number] [place] [address] Apr, [facility] [place] [facility] [address] [id number] [place] [address] Apr, [facility] [place] [facility] [address] [id number] [place] [address] Apr, [facility] [place] [facility] [address] [id number] [place] [address] Apr, [facility] [place] [facility] [address] [id number] [place] [address] Apr, [facility] [place] [facility] [address] [id number] [place] [address] Mar, [facility] [place] [facility] [address] [id number] [place] [address] Mar, [facility] [place] [facility] [address] [id number], [place] [address] Feb, [facility] [place] [facility] [address] [id number] [place] [address] Feb, [facility] [place] [facility] [address] [id number] [place] [address] Feb, [facility] [place] [facility] [address] [id number] [place] [address] Feb, [facility] [place] [facility] [address] [id number] [place] [address] Feb, [facility] [place] [facility] [address] [id number] [place] [address] Feb, [facility] [place] [facility] [address] [id number] [place] [address] Jan, [facility] [place] [facility] [address] [id number] [place] [address] Jan, [facility] [place] [facility] [address] [id number] [place] [address] Jan, [facility] [place] [facility] [address] [id number] [place] [address] Jan, [facility] [place] [facility] [address] [id number] [place] [address] Jan, [facility] [place] [facility] [address] [id number] [place] [address] Jan, [facility] [place] [facility] [address] [id number] [place] [address] Jan, [facility] [place] [facility] [address] [id number] [place] [address] Jan, [facility] [place] [facility] [address] [id number] [place] [address] Jan, [facility] [place] [facility] [address] [id number] [place] [address] Jan, [facility] [place] [facility] [address] [id number] [place] [address] Jan, [facility] [place] [facility] [address] [id number] [place] [address] Dec, [facility] [place] [facility] [address] [id number] [place] [address] Dec, [facility] [place] [facility] [address] [id number] [place] [address] Dec, [facility] [place] [facility] [address] [id number] [place] [address] Dec, [facility] [place] [facility] [address] [id number] [place] [address] 39[address] Dec, [facility] [place] [facility] [address] [id number] [place] [address] 0064 Dec, [facility] [place] [facility] [address] [id number] [place] [address] 74[address] November, [facility] [place] [facility] [address] [id number] [place] [address] November, [facility] [place] [facility] [address] [id number] [place] [address] November, [facility] [place] [facility] [address] [id number] [place] [address] November, [facility] [place] [facility] [address] [id number] [place] [address]- [address] November, [facility] [place] [facility] [address] [id number] [place] [address] 86[address] November, [facility] [place] [facility] [address] [id number] [place] [address]- [address] Oct, [facility] [place] [facility] [address] [id number] [place] [address] Oct, [facility] [place] [facility] [address] [id number] [place] [address] 8879 Oct, [facility] [place] [facility] [address] [id number] [place] [address] 73[address] Oct, [facility] [place] [facility] [address] [id number] [place] [address]- 7663 Sep, [facility] [place] [facility] [address] [id number] [place] [address] Sep, [facility] [place] [facility] [address] [id number], [place] [address] Sep, [facility] [address] [id number] [place] [address]328 Sep, [facility] [address] [id number] [place] [address]- 7392 Sep, [facility] [address] [id number] [place] [address] 6706 Aug, [facility] [address] [id number] [place] [address]- 1683 Aug, [facility] [address] [id number] [place] [address]- 9436 Aug, [facility] [address] [id number] [place] [address] 6163 Aug, [facility] [address] [facility] [id number], [place] [address] Aug, [facility] [place] [address] [place] [id number] May, [facility] [address] [id number], [place] [address] May, [facility] [address] [id number], [place] [address] May, [facility] [address] [id number], [place] [address] 8[address] May, [facility] [address] [id number], [place] [address] May, [facility] [address] [id number], [place] [address] Apr, [facility] [address] [id number], [place] [address] Apr, [facility] [address] [id number], [place] [address] Apr, [facility] [address] [id number] [place] [address]- 5565 Apr, [facility] [address] [id number] [place] [address]- 6[address] Apr, [facility] [place] [facility] [address] [id number] [place] [address]- 1016 Apr, [facility] [address] [id number] [place] [address]- 3281 Apr, [facility] [place] [facility] [address] [id number] [place] [address]- 2461 Mar, [facility] [address] [id number] [place] [address]- 4675 Mar, [facility] [place] [facility] [address] [id number] [place] [address]- [address]183 24 Mar, 2013 [facility] [address] [id number] [place] [address]- [address] 16 Mar, 2013 [facility] [address] [id number] [place] [address] 6421 Mar, [facility] [place] [facility] [address] [id number] [place] [address]- 1038 Mar, [facility] [address] [id number] [place] [address] 27[address] Feb, [facility] [place] [facility] [address] [id number] [place] [address]- 6789 Feb, [facility] [place] [facility] [address] [id number] [place] [address]- 7642 Feb, [facility] [place] [facility] [address] [id number] [place] [address] 4408 Feb, [facility] [place] [facility] [address] [id number] [place] [address] 3115 Feb, [facility] [place] [facility] [address] [id number] [place] [address]- 0103 Feb, [facility] [place] [facility] [address] [id number] [place] [address]- 4098 Jan, [facility] [place] [facility] [address] [id number] [place] [address]- 0924 Dec, [facility] [place] [facility] [address] [id number] [place] [address]- 9099 Dec, [facility] [place] [facility] [address] [id number] [place] [address]- 3281 Dec, [facility] [address] [id number] [place] [address]- 0153 Dec, [facility] [place] [facility] [address] [id number] [place] [address]- 6546 Dec, [facility] [place] [facility] [address] [id number] [place] [address]- 0047 Dec, [facility] [place] [facility] [address] [id number] [place] [address]- 2572 Dec, [facility] [place] [facility] [address] [id number] [place] [address]- 7424 Dec, [facility] [place] [facility] [address] [id number] [place] [address]- 9897 Dec, [facility] [place] [facility] [address] [id number] [place] [address]- 3672 November, [facility] [place] [facility] [address] [id number], [place] [address] 5312 November, [facility] [place] [facility] [address] [id number] [place] [address]- 5159 Oct, [facility] [place] [facility] [address] [id number] [place] [address]- 6056 Sep, [facility] [place] [facility] [address] [id number] [place] [address]- 1830 Sep, [facility] [place] [facility] [address] [id number], [place] [address]- [address]12 15 Sep, 2012 [facility] [id number] [address] Sep, [facility] [id number], [place] [address] 7380 Aug, [facility] [id number] [address] Aug, [facility] [id number] [address] Jul, [facility] [id number], [place] [address] Jul, [facility] [id number] [address] Jul, [facility] [id number] [address] Sep, [facility] [id number], [place] [address]- 8312 Sep, [facility] [id number] [address] Sep, IMMUNIZATIONS No Known Immunizations SOCIAL HISTORY [...]
--- OUTSIDE RECORDS SUMMARY | 2018-06-09 17:27 | XMS REPORT ---
Author Author LINDA BENTLEY Organization [facility] [place] Address [address] [place] [address] Care Team Providers Care Tape Keller Operator Name Role Phone LINDA BENTLEY Unavailable PROBLEMS Type Condition ICD9-CM Code NCL65-FD Code Onset Dates Condition Status SNOMED Code Problem Primary insomnia F51.01 Active 095486646 Problem Abdominal pain, left lower quadrant R10.32 Active 756319077 Problem 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 788914690 Problem Incontinence of feces, unspecified fecal incontinence type R15.9 Active 09445252 Problem Chronic fatigue, unspecified R53.82 Active 643776553 Problem Hydronephrosis with ureteral stricture, not elsewhere classified N13.1 Active 09650878 Problem Malignant neoplasm of colon, unspecified part of colon C18.9 Active 119811563 Problem Polyneuropathy G62.9 Active 46204395 Problem Mood disorder F39 Active 66557936 Problem Hypertension, benign I10 Active 40753877 Problem Anxiety F41.9 Active 34179877 Problem Neuropathy G62.9 Active 662991525 ALLERGIES No Information ENCOUNTERS Encounter Location Date Diagnosis [facility] [place] [id number] [place] [address] 58218- 8967 November, Medicare annual wellness visit, initial Z00.00 [facility] [place] [id number] [place] [address] 51039- 7620 Oct, [facility] [place] [address], [place] [address] 5[address] Sep, [facility] [place] [id number] [place] [address] 07928- 1193 Sep, Polyneuropathy G62.9 [facility] [place] [address] [address] 4836 Aug, Polyneuropathy G62.9 [facility] [place] [id number] [place] [address] 73097- 7659 Aug, Malignant neoplasm of colon, unspecified part of colon C18.9 and Polyneuropathy G62.9 [facility] [place] [id number] [place] [address] 76888- 9297 Aug, Neuropathy G62.9 and Polyneuropathy G62.9 [facility] [place] [address] 96199- 9879 Jul, Encounter for drug screening Z02.83 [facility] [place] [id number] [place] [address] 28375- 1674 Jul, Polyneuropathy G62.9 [facility] [place] [id number] [place] [address] 84995- 7902 Jul, [facility] [place] [address] 84075- 2656 Jul, Neuropathy G62.9 and Anxiety F41.9 [facility] [place] [id number] [place] [address] 24817- 7869 Jul, [facility] [place] [id number] [place] [address] 85928- 1921 Jul, [facility] [place] [id number] [place] [address] 06902- 5335 Jul, [facility] [place] [id number] [place] [address] 41344- 5979 Jul, Polyneuropathy G62.9 [facility] [place] [id number] [place] [address] 59478- 7818 Jul, [facility] [place] [id number] [place] [address] 64121- 6214 Jun, [facility] [place] [id number] [place] [address] 08018- 5652 Jun, [facility] [place] [address] [place] [address] 9218 07 Jun, 2017 [facility] [id number] [address] 07 Jun, 2017 Encounter for dental examination Z01.20 [facility] [place] [id number] [place] [address] 09848- 3427 Jun, Polyneuropathy G62.9 and Anxiety F41.9 [facility] [place] [id number] [place] [address] 52419- 5359 Jun, [facility] [id number] [address] May, Dental examination Z01.20 [facility] [place] [id number] [place] [address] 93092- 4083 May, Polyneuropathy G62.9 [facility] [place] [id number] [place] [address] 78928- 7044 Apr, Polyneuropathy G62.9 [facility] [place] [id number] [place] [address] 74421- 9833 Apr, Polyneuropathy G62.9 [facility] [place] [id number] [place] [address] 56861- 8254 Apr, Hypertension, benign I10 ; Polyneuropathy G62.9 and Anxiety F41.9 [facility] [place] [id number] [place] [address] 44124- 5397 Apr, Primary insomnia F51.01 and Polyneuropathy G62.9 [facility] [place] [id number] [place] [address] 02686- 2412 Apr, Primary insomnia F51.01 and Polyneuropathy G62.9 [facility] [place] [id number] [place] [address] 06450- 8938 Mar, Primary insomnia F51.01 [facility] [place] [id number] [place] [address] 28909- 7667 Mar, [facility] [address] [facility] [id number] [place] [address]- 7534 Mar, Polyneuropathy G62.9 [facility] [address] [facility] [id number] [place] [address]- 8462 Feb, Primary insomnia F51.01 [facility] [address] [facility] [id number] [place] [address]- 0479 Feb, [facility] [place] [facility] [address] [facility] [id number] [place] [address]- 8782 Feb, [facility] [address] [facility] [id number] [place] [address], [place] [address]- 9692 Feb, Polyneuropathy G62.9 [facility] [address] [address] 0928 Feb, Primary insomnia F51.01 [facility] [place] [facility] [id number] [place] [address], [place] [address]- 4419 Jan, [facility] [place] [facility] [address] [address] 2421 Jan, [facility] [place] [facility] [address] [address]- 7985 Dec, [facility] [place] [facility] [address], [place] [address] 2779 Dec, Primary insomnia F51.01 [facility] [place] [facility] [address] [address]- 9921 Dec, Primary insomnia F51.01 [facility] [place] [facility] [id number] [address]- 6469 Dec, [facility] [place] [facility] [address] [address]- 1254 Dec, [facility] [place] [facility] [address], [place] [address]- 6989 Dec, [facility] [address], [place] [address]- 4914 Dec, [facility] [place] [id number] [place] [address] 11753- 1726 November, Primary insomnia F51.01 and Polyneuropathy G62.9 [facility] [place] [id number] [place] [address] 78790- 2071 November, [facility] [place] [id number] [place] [address] 97046- 5339 November, Abdominal pain, left lower quadrant R10.32 [facility] [place] [id number] [place] [address] 98693- 7513 November, [facility] [place] [id number] [place] [address] 06222- 0009 Oct, [facility] [place] [id number] [place] [address] 60335- 3173 Oct, Abdominal pain, left lower quadrant R10.32 ; 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 and Neuropathy G62.9 [facility] [place] [id number] [place] [address] 27115- 7132 Oct, [facility] [place] [id number] [place] [address] 80634- 7983 Sep, [facility] [id number] [place] [address] [id number] Sep, [facility] [place] [id number] [place] [address] 33925- 1299 Sep, [facility] [place] [id number] [place] [address] 91784- 1690 Aug, [facility] [place] [id number] [place] [address] 51194- 3265 Aug, [facility] [place] [address] [place] [address] 16987- 2570 06 Feb, 2017 Abdominal pain, left lower quadrant R10.32 ; Neuropathy G62.9 and Anxiety F41.9 [facility] [address] [facility] [address] Jul, [facility] [place] [id number] [place] [address] 90434- 7797 Jul, [facility] [id number] [place] [address] 82411 -9261 Jul, [facility] [place] [id number] [place] [address] 66427- 9164 Jul, [facility] [place] [id number] [place] [address] 31067- 4366 Jul, [facility] [place] [id number] [place] [address] 78086- 4261 Jun, [facility] [place] [id number] [place] [address] 20865- 6259 May, [facility] [place] [id number] [place] [address] 22946- 5577 May, [facility] [place] [id number] [place] [address] 98239- 7855 Apr, [facility] [place] [id number] [place] [address] 21416- 9135 Apr, Muscle spasms of both lower extremities M62.838 and Cellulitis, unspecified cellulitis site L03.90 [facility] [place] [id number] [place] [address] 08286- 3470 Apr, [facility] [place] [address] [place] [address] 12650- 7085 23 Mar, 2016 Generalized abdominal pain R10.84 [facility] [place] [id number] [place] [address] 53182- 6882 20 Mar, 2016 [facility] [place] [id number] [place] [address] 96680- 9849 14 Mar, 2016 [facility] [place] [id number], [place] [address]- 6800 14 Mar, 2015 [facility] [place] [address] [facility] [id number] [address]- 3049 13 Mar, 2016 [facility] [place] [address] [facility] [id number] [address]- 5624 12 Mar, 2016 [facility] [place] [id number] [place] [address] 79863- 9225 09 Mar, 2016 [facility] [place] [address] [facility] [id number] [place] [address] 27977- 9685 06 Mar, 2016 [facility] [place] [address] [place] [address] 46377- 2158 Feb, Other specified diseases of anus and rectum K62.89 [facility] [place] [address], [place] [address]- 5320 Feb, [facility] [place] [id number] [place] [address] 42201- 8002 Feb, Dizziness R42 [facility] [place] [address] [address]- 5199 Feb, [facility] [place] [address], [place] [address]- 1322 Jan, Polyneuropathy G62.9 [facility] [place] [address] [address]- 3103 Jan, Other specified diseases of anus and rectum K62.89 [facility] [place] [address], [place] [address]- 9292 Jan, [facility] [address], [place] [address] -3525 Jan, [facility] [place] [address], [place] [address]- 2720 Jan, [facility] [place] [address], [place] [address]- 0641 Jan, Dizziness R42 [facility] [address] [id number] [place] [address]- 5663 Dec, [facility] [address] [facility] [id number] [place] [address]- 9786 Dec, [facility] [address] [facility] [id number] [place] [address]- 7306 Dec, [facility] [address] [facility] [id number] [place] [address], [place] [address]- 3848 Dec, Dizziness R42 [facility] [address] [facility] [id number] [place] [address]- 0612 November, [facility] [address] [facility] [id number] [place] [address]- 0002 Oct, [facility] [address] [address]- 6455 Oct, [facility] [address] [facility] [id number] [place] [address]- 9634 Oct, [facility] [address] [facility] [id number] [place] [address]- 7880 Oct, [facility] [address] [address]- 6437 Sep, [facility] [address] [address]- 4682 Sep, Primary insomnia F51.01 [facility] [place] [facility] [address] [facility] [id number] [place] [address]- 1457 Sep, Primary insomnia F51.01 [facility] [place] [facility] [address] [facility] [id number] [place] [address]- 0520 Sep, [facility] [place] [facility] [address] [facility] [id number] [place] [address]- 0306 Aug, [facility] [address]- 9755 Aug, [facility] [place] [address] [place] [address] 69449- 6051 Aug, Primary insomnia F51.01 ; Mood disorder F39 ; Nausea and vomiting, unspecified intactability, vomiting of unspecified type R11.2 and Diarrhea R19.7 [facility] [place] [id number] [place] [address] 81266- 1528 Aug, [facility] [place] [id number] [place] [address] 31888- 1937 Aug, Folliculitis L73.9 [facility] [place] [id number] [place] [address] 48442- 9684 Aug, [facility] [place] [id number] [place] [address] 98230- 1372 Aug, [facility] [place] [address] 62159- 5157 Jul, Folliculitis L73.9 [facility] [place] [id number] [place] [address] 75571- 4972 Jul, [facility] [place] [id number] [place] [address] 64439- 8819 Jun, Folliculitis L73.9 [facility] [place] [id number] [place] [address] 58683- 3187 Jun, [facility] [place] [id number] [place] [address] 71945- 2648 May, Polyneuropathy G62.9 [facility] [place] [id number] [place] [address] 30509- 8460 May, Other specified diseases of anus and rectum K62.89 [facility] [place] [id number] [place] [address] 23394- 5881 May, [facility] [place] [id number] [place] [address] 54576- 3995 May, Primary insomnia F51.01 [facility] [place] [address], [place] [address]- 6387 May, [facility] [place] [id number] [place] [address] 08059- 3387 May, [facility] [place] [id number] [place] [address] 62958- 1691 Apr, Other specified diseases of anus and rectum K62.89 ; Chronic fatigue R53.82 ; Urinary tract infection, site not specified N39.0 and Enterococcus as the cause of diseases classified elsewhere B95.2 [facility] [place] [id number] [place] [address] 06521- 1338 16 Apr, 2015 [facility] [place] [id number] [place] [address] 95679- 1620 15 Apr, 2015 [facility] [place] [id number] [place] [address] 23027- 2095 Apr, 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 [facility] [place] [id number] [place] [address] 56411- 9036 05 Apr, 2015 [facility] [place] [id number] [place] [address] 10926- 0473 26 Mar, 2015 [facility] [place] [address], [place] [address]- 5588 23 Mar, 2015 [facility] [place] [id number] [place] [address] 11313- 0414 17 Mar, 2015 [facility] [place] [id number] [place] [address] 31183- 5541 14 Mar, 2015 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 [facility] [place] [id number] [place] [address] 02627- 7407 12 Mar, 2015 [facility] [place] [id number] [place] [address] 22324- 2994 11 Mar, 2015 [facility] [place] [id number], [place] [address]- 1279 11 Mar, 2015 [facility] [address] [facility] [id number], [place] [address]- 4953 Mar, [facility] [place] [facility] [id number], [place] [address] 2545 Feb, [facility] [address], [place] [address]- 9909 Feb, [facility] [place] [facility] [id number], [place] [address] 2547 Feb, [facility] [id number] [place] [address] 96979- 2963 Jan, [facility] [place] [facility] [address] [address]- 1042 Jan, Nausea 787.02 and Neuropathy 355.9 [facility] [id number], [place] [address]- 0931 Jan, [facility] [id number], [place] [address]- 7402 Jan, [facility] [id number], [place] [address]- 9832 Jan, [facility] [id number] [id number] Jan, Dental examination V72.2 [facility] [id number], [place] [address]- 8238 Jan, [facility] [place] [facility] [id number], [place] [address]- 8370 Dec, [facility] [place] [facility] [id number]- 2283 Dec, [facility] [place] [facility] [id number], [place] [address]- 4458 Dec, Neuropathy 355.9 [facility] [place] [facility] [address] [address]- 5350 November, [facility] [place] [facility] [address] [id number] [place] [address]- 5118 November, [facility] [place] [facility] [address] [id number] [place] [address] November, [facility] [place] [facility] [address] [id number] [place] [address] Oct, [facility] [place] [facility] [address] [id number] [place] [address] Oct, [facility] [place] [facility] [address] [id number] [place] [address] Sep, [facility] [place] [facility] [address] [id number] [place] [address] Sep, [facility] [place] [facility] [address] [id number] [place] [address] Sep, [facility] [place] [facility] [address] [id number] [place] [address] Sep, [facility] [place] [facility] [address] [id number] [place] [address] Sep, [facility] [place] [facility] [address] [id number] [place] [address] Sep, [facility] [place] [facility] [address] [id number] [place] [address] Sep, [facility] [place] [facility] [address] [id number] [place] [address] Sep, [facility] [place] [facility] [address] [id number] [place] [address] Aug, [facility] [place] [facility] [address] [id number] [place] [address] Aug, [facility] [place] [facility] [address] [id number] [address] Aug, [facility] [place] [facility] [address] [id number] [place] [address] Aug, 2014 [facility] [place] [facility] [address] [id number] [place] [address] Aug, 2014 [facility] [place] [facility] [address] [id number] [place] [address] Aug, 2014 [facility] [place] [facility] [address] [id number] [place] [address] Aug, 2014 [facility] [place] [facility] [address] [id number] [place] [address] Aug, [facility] [place] [facility] [address] [id number] [place] [address] Jul, [facility] [place] [facility] [address] [id number] [place] [address] Jul, [facility] [place] [facility] [address] [id number] [place] [address] Jun, [facility] [place] [facility] [address] [id number] [place] [address] Jun, [facility] [place] [facility] [address] [id number] [place] [address] Jun, [facility] [place] [facility] [address] [id number] [place] [address] Jun, [facility] [place] [facility] [address] [id number] [place] [address] Jun, [facility] [place] [facility] [address] [id number] [place] [address] Jun, [facility] [place] [facility] [address] [id number] [place] [address] Jun, [facility] [place] [facility] [address] [id number] [place] [address] Jun, [facility] [place] [facility] [address] [id number] [place] [address] Jun, [facility] [place] [facility] [address] [id number] [place] [address] Jun, [facility] [place] [facility] [address] [id number] [place] [address] Jun, [facility] [place] [facility] [address] [id number] [place] [address] May, [facility] [place] [facility] [address] [id number] [place] [address] May, [facility] [place] [facility] [address] [id number] [place] [address] May, [facility] [place] [facility] [address] [id number] [place] [address] May, [facility] [place] [facility] [address] [id number] [place] [address]- [address] May, [facility] [place] [facility] [address] [id number] [place] [address] May, [facility] [place] [facility] [address] [id number] [place] [address] May, [facility] [place] [facility] [address] [facility] [id number] [place] [address] May, [facility] [place] [facility] [address] [id number] [place] [address] May, [facility] [place] [facility] [address] [id number], [place] [address] Apr, [facility] [place] [facility] [address] [id number] [place] [address] Apr, [facility] [place] [facility] [address] [id number] [place] [address] Apr, [facility] [place] [facility] [address] [id number], [place] [address] Apr, [facility] [place] [facility] [address] [id number] [place] [address] Apr, [facility] [place] [facility] [address] [id number] [place] [address] Mar, [facility] [place] [facility] [address] [id number] [place] [address] Mar, [facility] [place] [facility] [address] [id number] [place] [address] 4269 Feb, [facility] [place] [facility] [address] [id number] [place] [address] 57[address] Feb, [facility] [place] [facility] [address] [id number] [place] [address]79 Feb, [facility] [place] [facility] [address] [id number] [place] [address] 6[address] Feb, [facility] [place] [facility] [address] [id number] [place] [address] 9149 Feb, [facility] [place] [facility] [address] [id number] [place] [address] 7204 Feb, [facility] [place] [facility] [address] [id number] [place] [address] 4861 Jan, [facility] [place] [facility] [address] [id number] [place] [address] Jan, [facility] [place] [facility] [address] [id number] [place] [address] 7946 Jan, [facility] [place] [facility] [address] [id number] [place] [address] 7121 Jan, [facility] [place] [facility] [address] [id number] [place] [address] 0049 Jan, [facility] [place] [facility] [address] [id number] [place] [address] 98[address] Jan, [facility] [place] [facility] [address] [id number] [place] [address] 6117 Jan, [facility] [place] [facility] [address] [id number] [place] [address] 8036 Jan, [facility] [place] [facility] [address] [id number] [place] [address] 2959 Jan, [facility] [place] [facility] [address] [id number] [place] [address] 4910 Jan, [facility] [place] [facility] [address] [id number] [place] [address] 6797 Jan, [facility] [place] [facility] [address] [id number] [place] [address] 7730 Dec, [facility] [place] [facility] [address] [id number] [place] [address] 2555 Dec, [facility] [place] [facility] [address] [id number] [place] [address] 8950 Dec, [facility] [place] [facility] [address] [id number] [place] [address] 1184 Dec, [facility] [place] [facility] [address] [id number] [place] [address] 3788 Dec, [facility] [place] [facility] [address] [id number] [place] [address] 4120 Dec, [facility] [place] [facility] [address] [id number] [place] [address] November, [facility] [place] [facility] [address] [id number] [place] [address] 0329 November, [facility] [place] [facility] [address] [id number] [place] [address] 3720 November, [facility] [place] [facility] [address] [id number] [place] [address] November, [facility] [place] [facility] [address] [id number] [place] [address] November, [facility] [place] [facility] [address] [id number] [place] [address] 4810 November, [facility] [address] [id number] [place] [address] 9112 Oct, [facility] [address] [id number] [place] [address] 4478 Oct, [facility] [address] [id number] [place] [address] 6357 Oct, [facility] [address] [id number] [place] [address] 5993 Oct, [facility] [address] [id number] [place] [address] 2187 Sep, [facility] [address] [id number] [place] [address] 8207 Sep, [facility] [address] [id number] [place] [address] 1008 Sep, [facility] [address] [id number] [place] [address]231 Sep, [facility] [address] [id number] [place] [address] 2074 Sep, [facility] [address] [id number] [place] [address] 6689 Aug, [facility] [address] [id number] [place] [address] 8897 Aug, [facility] [address] [id number] [place] [address] 0784 Aug, [facility] [address] [id number] [place] [address] 8805 Aug, [facility] [address] [id number] [place] [address]- [address] 14 Aug, 2013 [facility] [address] [place] [id number] May, [facility] [place] [facility] [address] [id number] [place] [address]646 May, [facility] [place] [facility] [address] [id number] [place] [address] 2472 May, [facility] [place] [facility] [address] [id number] [place] [address] 3590 May, [facility] [place] [facility] [address] [id number] [place] [address]- 5809 May, [facility] [place] [facility] [address] [id number] [place] [address] 0416 Apr, [facility] [place] [facility] [address] [id number] [place] [address] 6887 Apr, [facility] [place] [facility] [address] [id number] [place] [address] 9279 Apr, [facility] [place] [facility] [address] [id number] [place] [address] 3204 Apr, [facility] [place] [facility] [address] [id number] [place] [address]- 1017 Apr, [facility] [place] [facility] [address] [id number] [place] [address]- 4599 Apr, [facility] [place] [facility] [address] [id number] [place] [address] 6262 Apr, [facility] [place] [facility] [address] [id number] [place] [address]- 9446 28 Mar, 2013 [facility] [place] [facility] [address] [id number] [place] [address]- 3505 25 Mar, 2013 [facility] [place] [facility] [address] [id number] [place] [address]- 9991 24 Mar, 2013 [facility] [place] [facility] [address] [id number] [place] [address]- 8696 16 Sep2012 [facility] [place] [facility] [address] [id number] [place] [address]- 2772 Mar, [facility] [place] [facility] [address] [id number] [place] [address]- 9695 Mar, [facility] [place] [facility] [address] [id number] [place] [address]- 5787 Feb, [facility] [place] [facility] [address] [id number] [place] [address]- 8198 Feb, [facility] [place] [facility] [address] [id number] [place] [address]- 8238 Feb, [facility] [place] [facility] [address] [id number] [place] [address]- 9889 Feb, [facility] [place] [facility] [address] [id number] [place] [address]- 0611 Feb, [facility] [place] [facility] [address] [id number] [place] [address]- 8668 Feb, [facility] [place] [facility] [address] [id number] [place] [address]- 2706 Jan, [facility] [place] [facility] [address] [id number] [place] [address]- 2690 Dec, [facility] [place] [facility] [address] [id number] [place] [address]- 1396 Dec, [facility] [place] [facility] [address] [id number] [place] [address]- 3203 Dec, [facility] [place] [facility] [address] [id number], [place] [address]11 Dec, [facility] [place] [facility] [address] [id number] [place] [address]- 6460 Dec, [facility] [place] [facility] [address] [id number] [place] [address]- 1704 Dec, [facility] [place] [facility] [address] [id number] [place] [address]- 4682 Dec, [facility] [place] [facility] [address] [id number] [place] [address]- 1119 Dec, [facility] [address] [id number] [place] [address]- 4461 Dec, [facility] [address] [id number] [place] [address]- 8666 November, [facility] [address] [id number] [place] [address]- 4285 November, [facility] [address] [id number] [place] [address]- 3851 Oct, [facility] [address] [id number] [place] [address]- 0080 Sep, [facility] [address] [id number] [place] [address]- 6969 Sep, [facility] [address] [id number] [place] [address]- 9031 Sep, [facility] [address] [id number] [place] [address]- 8608 Sep, [facility] [address] [id number] [place] [address]- 6962 Aug, [facility] [address] [id number] [place] [address]- 8926 Aug, [facility] [address] [id number] [place] [address]- 6846 Jul, [facility] [address] [id number] [place] [address]- 1299 Jul, [facility] [address] [id number] [place] [address]- 5113 Jul, [facility] [address] [id number] [place] [address]- 4786 Sep, [facility] [address] [id number] [place] [address]- 0912 Sep, [facility] [place] [address] [facility] [id number] [place] [id number] Sep, IMMUNIZATIONS No Known Immunizations SOCIAL HISTORY Never Assessed REASON FOR VISIT Controlled Med Refill 01/13 PLAN OF CARE VITAL SIGNS MEDICATIONS Medication Instructions Dosage Frequency Start Date End Date Duration Status Oxycodone HCl 30 MG Orally 2 times a day 1 tablet as needed 12h 30 Dec, 2016 28 days Active RESULTS No Results [...]
--- OUTSIDE RECORDS SUMMARY | 2018-06-09 17:28 | XMS REPORT ---
Author Author LINDA BENTLEY Organization [facility] Address [address] [place] [address] Care Team Providers Care Community Health Consultant Name Role Phone LINDA BENTLEY Unavailable PROBLEMS Type Condition ICD9-CM Code [id number] Code Onset Dates Condition Status SNOMED Code Problem Abdominal pain, left lower quadrant R10.32 Active 722753626 Problem Mood disorder F39 Active 34779745 Problem Hypertension, benign I10 Active 94641852 Problem Chronic pain syndrome G89.4 Active 071970239 Problem Attention to urostomy Z43.6 Active 735290612 Problem Anxiety F41.9 Active 77301856 Problem Neuropathy G62.9 Active 257452967 Problem Malignant neoplasm of colon, unspecified part of colon C18.9 Active 435567443 Problem Polyneuropathy G62.9 Active 11535967 Problem Incontinence of feces, unspecified fecal incontinence type R15.9 Active 38609960 Problem Chronic fatigue, unspecified R53.82 Active 370374977 Problem Hydronephrosis with ureteral stricture, not elsewhere classified N13.1 Active 59595298 Problem Primary insomnia F51.01 Active 923955337 Problem 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 446104181 ALLERGIES No Information ENCOUNTERS Encounter Location Date Diagnosis [facility] [id number] [address] Jan, [facility] [id number], [place] [address] 7886 Dec, Polyneuropathy G62.9 [facility] [id number], [place] [address] 1108 Dec, Mood disorder F39 [facility] [id number], [place] [address] 6868 November, Polyneuropathy G62.9 [facility] [address], [place] [address] November, Medicare annual wellness visit, initial Z00.00 [facility] [id number] [place] [address] 86920- 1277 November, Mood disorder F39 [facility] [id number] [place] [address] 06378- 3302 Oct, Polyneuropathy G62.9 [facility] [id number] [place] [address] 84369- 5537 Oct, [facility] [id number] [place] [address] 69446- 2295 Oct, [facility] [id number] [place] [address] 88504- 7544 Oct, Mood disorder F39 ; Attention to urostomy Z43.6 ; Chronic pain syndrome G89.4 and Polyneuropathy G62.9 [facility] [id number] [place] [address] 83627- 6763 Sep, Polyneuropathy G62.9 [facility] [id number] [place] [address] 65936- 8972 Sep, [facility] [id number] [place] [address] 32579- 8127 Sep, Polyneuropathy G62.9 [facility] [id number] [place] [address] 30048- 1505 Aug, Polyneuropathy G62.9 [facility] [id number] [place] [address] 24787- 7003 Aug, Malignant neoplasm of colon, unspecified part of colon C18.9 and Polyneuropathy G62.9 [facility] [address], [place] [address]- 7807 Aug, Neuropathy G62.9 and Polyneuropathy G62.9 [facility] [id number] [place] [address] 39319- 8657 Jul, Encounter for drug screening Z02.83 [facility] [id number] [place] [address] 69808- 0166 Jul, Polyneuropathy G62.9 [facility] [id number] [place] [address] 85770- 4775 Jul, [facility] [id number] [place] [address] 17339- 5826 Jul, Neuropathy G62.9 and Anxiety F41.9 [facility] [id number] [place] [address] 81855- 1609 Jul, [facility] [id number] [place] [address] 33344- 1230 Jul, [facility] [id number] [place] [address] 06395- 6972 Jul, [facility] [id number] [place] [address] 29123- 9439 Jul, Polyneuropathy G62.9 [facility] [id number] [place] [address] 17931- 5035 Jul, [facility] [id number] [place] [address] 80709- 2163 Jun, [facility] [id number] [place] [address] 69786- 7841 Jun, [facility] [id number] [place] [address] 89320- 3854 Jun, [facility] [id number] [place] [address] Jun, Encounter for dental examination Z01.20 [facility] [address], [place] [address]- 9120 Jun, Polyneuropathy G62.9 and Anxiety F41.9 [facility] [id number], [place] [address]- 2504 Jun, [facility] [id number] [place] [address] May, Dental examination Z01.20 [facility] [id number] [place] [address] 37821- 0191 May, Polyneuropathy G62.9 [facility] [id number] [place] [address] 02348- 7462 Apr, Polyneuropathy G62.9 [facility] [id number] [place] [address] 07319- 4150 Apr, Polyneuropathy G62.9 [facility] [id number] [place] [address] 98090- 6221 Apr, Hypertension, benign I10 ; Polyneuropathy G62.9 and Anxiety F41.9 [facility] [id number] [place] [address] 71088- 3892 Apr, Primary insomnia F51.01 and Polyneuropathy G62.9 [facility] [id number] [place] [address] 01600- 8968 Apr, Primary insomnia F51.01 and Polyneuropathy G62.9 [facility] [id number] [place] [address] 44022- 2959 Mar, Primary insomnia F51.01 [facility] [id number] [place] [address] 41297- 8971 Mar, [facility] [id number] [place] [address] 45677- 0049 Mar, Polyneuropathy G62.9 [facility] [address] [place] [address] 37045- 1694 Feb, Primary insomnia F51.01 [facility] [id number] [place] [address] 53893- 4380 Feb, [facility] [address] [place] [address]- 7671 Feb, [facility] [address] [place] [address]- 8194 Feb, Polyneuropathy G62.9 [facility] [address] [place] [address]- 0788 Feb, Primary insomnia F51.01 [facility] [address] [place] [address]- 4903 Jan, [facility] [id number] [address]- 5937 Jan, [facility] [address] [address]- 1054 Dec, [facility] [address] [place] [address]- 7109 Dec, Primary insomnia F51.01 [facility] [address] [place] [address]- 0273 Dec, Primary insomnia F51.01 [facility] [address] [place] [address]- 3093 Dec, [facility] [address] [place] [address]- 9354 Dec, [facility] [address] [place] [address]- 5301 Dec, [facility] [address] [address]- 2673 Dec, [facility] [address] [address]- 9641 November, Primary insomnia F51.01 and Polyneuropathy G62.9 [facility] [address] [place] [address]- 9462 November, [facility] [id number] [place] [address] 93862- 6096 November, Abdominal pain, left lower quadrant R10.32 [facility] [id number] [place] [address] 55030- 1128 November, [facility] [id number] [place] [address] 61729- 3660 Oct, [facility] [id number] [place] [address] 88420- 2383 Oct, Abdominal pain, left lower quadrant R10.32 ; 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 and Neuropathy G62.9 [facility] [address] 00778- 2441 Oct, [facility] [id number] [place] [address] 29413- 3988 Sep, [facility] [address] [id number] Sep, [facility] [id number] [place] [address] 95439- 3654 Sep, [facility] [id number] [place] [address] 94074- 2696 Aug, [facility] [id number] [place] [address] 75908- 7089 Aug, [facility] [id number] [place] [address] 48918- 4143 Aug, Abdominal pain, left lower quadrant R10.32 ; Neuropathy G62.9 and Anxiety F41.9 [facility] [address] [place] [address] Jul, [facility] [id number] [place] [address] 94837002- 3806 Jul, [facility] [id number] [place] [address] 68629 -4209 Jul, [facility] [address] [place] [address]- 1347 Jul, [facility] [address], [place] [address]- 9567 Jul, [facility] [address], [place] [address]- 3337 Jun, [facility] [id number] [place] [address] 628232- 8609 May, [facility] [address], [place] [address]- 1260 May, [facility] [id number] [place] [address] 05490- 9599 Apr, [facility] [address], [place] [address]- 9218 Apr, Muscle spasms of both lower extremities M62.838 and Cellulitis, unspecified cellulitis site L03.90 [facility] [address], [place] [address]- 7885 Apr, [facility] [id number] [place] [address] 89961- 9250 23 Mar, 2016 Generalized abdominal pain R10.84 [facility] [address], [place] [address]- 2414 20 Mar, 2016 [facility] [address], [place] [address]- 6733 14 Mar, 2016 [facility] [address], [place] [address]- 2542 14 Mar, 2015 [facility] [address], [place] [address]- 4585 13 Mar, 2016 [facility] [address], [place] [address]- 7328 12 Mar, 2015 [facility] [address], [place] [address]- 6773 Mar, [facility] [address] [facility] [id number], [place] [address]- 2174 Mar, [facility] [address] [facility] [id number], [place] [address]- 0362 Feb, Other specified diseases of anus and rectum K62.89 [facility] [address] [facility] [id number], [place] [address]- 1480 Feb, [facility] [address] [facility] [id number] [place] [address] 28560 2547 Feb, Dizziness R42 [facility] [address] [facility] [id number] [place] [address] 61640- 0556 Feb, [facility] [id number] [place] [address] 65415- 0668 Jan, Polyneuropathy G62.9 [facility] [id number] [place] [address] 90127- 0647 Jan, Other specified diseases of anus and rectum K62.89 [facility] [address] [facility] [id number], [place] [address]- 7414 Jan, [facility] [id number], [place] [address] -9585 Jan, [facility] [address], [place] [address]- 6429 Jan, [facility] [address], [place] [address]- 3736 Jan, Dizziness R42 [facility] [address] [facility] [id number], [place] [address]- 3406 Dec, [facility] [address] [facility] [id number], [place] [address]- 1945 Dec, [facility] [id number], [place] [address]- 3020 Dec, [facility] [id number], [place] [address]- 1346 Dec, Dizziness R42 [facility] [id number] [place] [address] 41646- 5795 November, [facility] [id number], [place] [address]- 8018 Oct, [facility] [id number] [place] [address] 71579- 4199 Oct, [facility] [id number] [place] [address] 20324- 1011 Oct, [facility] [id number] [place] [address] 19448- 1949 Oct, [facility] [id number] [place] [address] 76851- 2472 Sep, [facility] [id number] [place] [address] 86934- 6015 Sep, Primary insomnia F51.01 [facility] [address] [place] [address] 41980- 5738 Sep, Primary insomnia F51.01 [facility] [id number] [place] [address] 84743- 2230 Sep, [facility] [address], [place] [address]- 6127 Aug, [facility] [address], [place] [address]- 8994 Aug, [facility] [address], [place] [address]- 3573 Aug, Primary insomnia F51.01 ; Mood disorder F39 ; Nausea and vomiting, unspecified intactability, vomiting of unspecified type R11.2 and Diarrhea R19.7 [facility] [address], [place] [address]- 2621 Aug, [facility] [id number], [place] [address]- 3703 Aug, Folliculitis L73.9 [facility] [id number] [place] [address] 96021- 1389 Aug, [facility] [id number] [place] [address] 03683- 9278 Aug, [facility] [id number] [place] [address] 91897- 5175 Jul, Folliculitis L73.9 [facility] [id number] [place] [address] 36683- 7448 Jul, [facility] [id number] [place] [address] 28302- 5177 Jun, Folliculitis L73.9 [facility] [id number] [place] [address] 32279- 8279 Jun, [facility] [id number] [place] [address] 99083- 2877 May, Polyneuropathy G62.9 [facility] [id number] [place] [address] 39366- 7273 May, Other specified diseases of anus and rectum K62.89 [facility] [id number] [place] [address] 95541- 8726 May, [facility] [id number] [place] [address] 94523- 4725 May, Primary insomnia F51.01 [facility] [id number] [place] [address] 69155- 0750 May, [facility] [id number] [place] [address] 98761- 6043 May, [facility] [id number] [place] [address] 60457- 5121 Apr, Other specified diseases of anus and rectum K62.89 ; Chronic fatigue R53.82 ; Urinary tract infection, site not specified N39.0 and Enterococcus as the cause of diseases classified elsewhere B95.2 [facility] [id number] [place] [address] 39962- 9936 16 Apr, 2015 [facility] [id number] [place] [address] 77819 2546 15 Apr, 2015 [facility] [id number] [place] [address] 43119 2546 14 Apr, 2015 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 [facility] [id number] [place] [address] 85462 2546 05 Apr, 2015 [facility] [id number] [place] [address] 75099- 4006 26 Mar, 2015 [facility] [id number] [place] [address] 34674- 5806 23 Mar, 2015 [facility] [id number] [place] [address] 15848 2546 17 Mar, 2015 [facility] [id number] [place] [address] 06177 2544 14 Mar, 2015 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 [facility] [address], [place] [address] 2546 12 Mar, 2015 [facility] [address], [place] [address] 2546 11 Mar, 2015 [facility] [address], [place] [address] 2546 11 Mar, 2015 [facility] [address] [place] [address] 26774 2546 10 Mar, 2015 [facility] [id number] [place] [address] 77131 2546 Feb, [facility] [address], [place] [address]- 0496 Feb, [facility] [address] [id number] [place] [address]- 6849 Feb, [facility] [address] [facility] [id number], [place] [address]- 7478 Jan, [facility] [address] [facility] [id number] [place] [address] 2546 Jan, Nausea 787.02 and Neuropathy 355.9 [facility] [address] [facility] [id number], [place] [address] 2548 Jan, [facility] [address] [facility] [id number] [place] [address]- 0439 Jan, [facility] [address] [facility] [id number], [place] [address]- 1508 Jan, [facility] [address] [id number][place] [id number] Jan, Dental examination V72.2 [facility] [id number], [place] [address]- 1875 Jan, [facility] [address], [place] [address]- 2310 Dec, [facility] [address], [place] [address]- 8774 Dec, [facility] [address] 2087 Dec, Neuropathy 355.9 [facility] [address] [facility] [id number], [place] [address]- 4147 November, [facility] [address] [facility] [id number], [place] [address]- 1263 November, [facility] [address] [facility] [id number], [place] [address]- 4259 November, [facility] [address] [facility] [id number] [place] 9041 Oct, [facility] [place] [facility] [address] [id number] [place] [address]- 6235 Oct, [facility] [place] [facility] [address] [id number] [place] [address]- 3728 Sep, [facility] [place] [facility] [address] [id number] [place] [address]- 5646 Sep, [facility] [place] [facility] [address] [id number] [place] [address]- 4180 Sep, [facility] [place] [facility] [address] [id number] [place] [address] Sep, [facility] [place] [facility] [address] [id number] [place] [address] Sep, [facility] [place] [facility] [address] [facility] [id number] [place] [address] Sep, [facility] [place] [facility] [address] [id number] [place] [address] Sep, [facility] [place] [facility] [address] [facility] [id number] [place] [address] Sep, [facility] [place] [facility] [address] [facility] [id number] [place] [address] Aug, [facility] [place] [facility] [address] [facility] [id number] [place] [address] Aug, [facility] [place] [facility] [address] [facility] [id number] [place] [address] Aug, 2014 [facility] [place] [facility] [address] [facility] [id number] [place] [address] Aug, [facility] [place] [facility] [address] [id number] [place] [address] Aug, [facility] [place] [facility] [address] [facility] [id number] [place] [address] Aug, 2014 [facility] [place] [facility] [address] [facility] [id number] [place] [address] Aug, [facility] [place] [facility] [address] [id number] [place] [address] Aug, [facility] [place] [facility] [address] [id number] [place] [address] Jul, [facility] [place] [facility] [address] [id number] [place] [address] Jul, [facility] [place] [facility] [address] [id number] [place] [address] Jun, [facility] [place] [facility] [address] [id number] [place] [address] Jun, [facility] [place] [facility] [address] [id number] [place] [address] Jun, [facility] [place] [facility] [address] [id number] [place] [address] Jun, [facility] [place] [facility] [address] [id number] [place] [address] Jun, [facility] [place] [facility] [address] [id number] [place] [address] Jun, [facility] [place] [facility] [address] [id number] [place] [address] Jun, [facility] [place] [facility] [address] [id number] [place] [address] Jun, [facility] [place] [facility] [address] [id number] [place] [address] Jun, [facility] [place] [facility] [address] [id number] [place] [address] Jun, [facility] [place] [facility] [address] [id number] [place] [address] Jun, [facility] [place] [facility] [address] [id number] [place] [address] May, [facility] [place] [facility] [address] [id number] [place] [address] May, [facility] [place] [facility] [address] [id number] [place] [address] May, [facility] [place] [facility] [address] [id number] [place] [address] May, [facility] [place] [facility] [address] [id number] [place] [address] May, [facility] [place] [facility] [address] [id number] [place] [address] May, [facility] [place] [facility] [address] [id number] [place] [address] May, [facility] [place] [facility] [address] [id number] [place] [address] May, [facility] [place] [facility] [address] [id number] [place] [address] May, [facility] [place] [facility] [address] [id number] [place] [address] Apr, [facility] [place] [facility] [address] [id number] [place] [address] Apr, [facility] [place] [facility] [address] [id number] [place] [address] Apr, [facility] [place] [facility] [address] [id number] [place] [address] Apr, [facility] [place] [facility] [address] [id number] [place] [address] Apr, [facility] [place] [facility] [address] [id number] [place] [address] Mar, [facility] [place] [facility] [address] [id number] [place] [address] Mar, [facility] [place] [facility] [address] [id number] [place] [address] Feb, [facility] [place] [facility] [address] [id number] [place] [address] Feb, [facility] [place] [facility] [address] [id number] [place] [address] Feb, [facility] [place] [facility] [address] [id number] [place] [address] Feb, [facility] [place] [facility] [address] [id number] [place] [address] Feb, [facility] [place] [facility] [address] [id number] [place] [address] Feb, [facility] [place] [facility] [address] [id number] [place] [address] Jan, [facility] [place] [facility] [address] [id number] [place] [address] Jan, [facility] [place] [facility] [address] [id number] [place] [address] Jan, [facility] [place] [facility] [address] [id number] [place] [address] Jan, [facility] [place] [facility] [address] [id number] [place] [address] Jan, [facility] [place] [facility] [address] [id number] [place] [address] Jan, [facility] [place] [facility] [address] [id number] [place] [address] Jan, [facility] [place] [facility] [address] [id number] [place] [address] Jan, [facility] [place] [facility] [address] [id number] [place] [address] Jan, [facility] [place] [facility] [address] [id number] [place] [address] Jan, [facility] [place] [facility] [address] [id number] [place] [address] Jan, [facility] [place] [facility] [address] [id number] [place] [address] Dec, [facility] [place] [facility] [address] [id number] [place] [address] Dec, [facility] [place] [facility] [address] [id number] [place] [address] Dec, [facility] [place] [facility] [address] [id number] [place] [address] Dec, [facility] [place] [facility] [address] [id number] [place] [address] Dec, [facility] [place] [facility] [address] [id number] [place] [address] Dec, [facility] [place] [facility] [address] [id number] [place] [address] November, [facility] [place] [facility] [address] [id number] [place] [address] 40[address] November, [facility] [place] [facility] [address] [id number] [place] [address] November, [facility] [place] [facility] [address] [id number] [place] [address] November, [facility] [place] [facility] [address] [id number] [place] [address] November, [facility] [place] [facility] [address] [id number] [place] [address] November, [facility] [place] [facility] [address] [id number] [place] [address] 114[address] Oct, [facility] [place] [facility] [address] [id number] [place] [address] 69[address] Oct, [facility] [place] [facility] [address] [id number] [place] [address]- [address] 16 Oct, 2013 [facility] [place] [facility] [address] [id number] [place] [address] Oct, [facility] [address] [id number] [place] [address] Sep, [facility] [address] [id number] [place] [address] Sep, [facility] [address] [id number] [place] [address] Sep, [facility] [address] [id number] [place] [address] Sep, [facility] [address] [id number] [place] [address] Sep, [facility] [address] [id number] [place] [address] Aug, [facility] [address] [id number] [place] [address] Aug, [facility] [address] [id number] [place] [address] Aug, [facility] [address] [id number] [place] [address] 8067 Aug, [facility] [address] [id number] [place] [address] Aug, [facility] [address] [place] [id number] May, [facility] [address] [id number] [place] [address] May, [facility] [address] [id number] [place] [address] May, [facility] [address] [id number] [place] [address] 2546 May, [facility] [address] [id number] [place] [address] May, [facility] [place] [facility] [address] [id number] [place] [address]- 3677 Apr, [facility] [place] [facility] [address] [id number] [place] [address]- 1015 Apr, [facility] [place] [facility] [address] [id number] [place] [address] 8[address] Apr, [facility] [place] [facility] [address] [id number] [place] [address] 6852 Apr, [facility] [place] [facility] [address] [id number] [place] [address] 2033 Apr, [facility] [place] [facility] [address] [id number] [place] [address] 2439 Apr, [facility] [place] [facility] [address] [id number] [place] [address]- 7568 Apr, [facility] [place] [facility] [address] [id number], [place] [address] Mar, [facility] [place] [facility] [address] [id number] [place] [address] 25 Mar, 2013 [facility] [place] [facility] [address] [id number] [place] [address] 24 Mar, 2013 [facility] [place] [facility] [address] [id number], [place] [address] 16 Mar, 2013 [facility] [place] [facility] [address] [id number], [place] [address]- [address]652 12 Mar, 2013 [facility] [place] [facility] [address] [id number] [place] [address]- 3727 06 Mar, 2013 [facility] [place] [facility] [address] [id number], [place] [address] 9702 Feb, [facility] [place] [facility] [address] [id number] [place] [address] Feb, [facility] [place] [facility] [address] [id number] [place] [address]- 5720 Feb, [facility] [place] [facility] [address] [id number] [place] [address]- 9091 Feb, [facility] [place] [facility] [address] [id number] [place] [address]- 1428 Feb, [facility] [place] [facility] [address] [id number] [place] [address]- 4092 Feb, [facility] [place] [facility] [address] [id number] [place] [address]- 6532 Jan, [facility] [place] [facility] [address] [id number] [place] [address]- 6492 Dec, [facility] [place] [facility] [address] [id number] [place] [address]- 2104 Dec, [facility] [place] [facility] [address] [id number] [place] [address]- 3327 Dec, [facility] [place] [facility] [address] [id number] [place] [address]- 5447 Dec, [facility] [place] [facility] [address] [id number] [place] [address]- 5185 Dec, [facility] [place] [facility] [address] [id number] [place] [address]- 1040 Dec, [facility] [place] [facility] [address] [id number] [place] [address]- 8570 Dec, [facility] [place] [facility] [address] [id number] [place] [address]- 9300 Dec, [facility] [place] [facility] [address] [id number] [place] [address]- 8090 Dec, [facility] [place] [facility] [address] [id number] [place] [address]- 3718 November, [facility] [place] [facility] [address] [id number] [place] [address]- 8445 November, [facility] [id number], [place] [address] Oct, [facility] [id number], [place] [address]- 7[address] Sep, [facility] [id number], [place] [address]- 7971 Sep, [facility] [id number], [place] [address]- 6[address] Sep, [facility] [id number], [place] [address]- 7948 Sep, [facility] [address], [place] [address]- 6569 Aug, [facility] [id number], [place] [address]- 9516 Aug, [facility] [address], [place] [address]- 2966 Jul, [facility] [address], [place] [address]- [address] Jul, [facility] [address] [address] Jul, [facility] [address] [id number], [place] [address]- [address]22 Sep, [facility] [address], [place] [address]- [address] Sep, [facility] [address] [id number] [address] Sep, IMMUNIZATIONS No Known Immunizations SOCIAL HISTORY Never Assessed REASON FOR VISIT Refill request PLAN OF CARE VITAL SIGNS MEDICATIONS Unknown [...]
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
--- OUTSIDE RECORDS SUMMARY | 2018-06-09 17:29 | XMS REPORT ---
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 Name Role Phone LINDA BENTLEY Unavailable PROBLEMS Type Condition ICD9-CM Code EEG45-RP Code Onset Dates Condition Status SNOMED Code Problem Abdominal pain, left lower quadrant R10.32 Active 006446203 Problem Mood disorder F39 Active 34903207 Problem Hypertension, benign I10 Active 39582714 Problem Chronic pain syndrome G89.4 Active 237423751 Problem Attention to urostomy Z43.6 Active 938346942 Problem Anxiety F41.9 Active 49638166 Problem Neuropathy G62.9 Active 110455523 Problem Malignant neoplasm of colon, unspecified part of colon C18.9 Active 998285757 Problem Polyneuropathy G62.9 Active 02093140 Problem Incontinence of feces, unspecified fecal incontinence type R15.9 Active 84722446 Problem Chronic fatigue, unspecified R53.82 Active 178240854 Problem Hydronephrosis with ureteral stricture, not elsewhere classified N13.1 Active 43026734 Problem Primary insomnia F51.01 Active 973128228 Problem 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 137453090 ALLERGIES No Information ENCOUNTERS Encounter Location Date Diagnosis [facility] [address] [address] Jan, [facility] [address], [place] [address] Jan, [facility] [id number] [place] [address] 51820- 7593 Dec, Polyneuropathy G62.9 [facility] [id number] [address] 6719 14 Dec, 2017 Mood disorder F39 [facility] [id number] [place] [address] 03976- 7303 November, Polyneuropathy G62.9 [facility] [address], [place] [address] 6[address] November, Medicare annual wellness visit, initial Z00.00 [facility] [id number] [place] [address] 42110- 4232 November, Mood disorder F39 [facility] [id number] [place] [address] 97631- 5060 Oct, Polyneuropathy G62.9 [facility] [id number] [place] [address] 58268- 1710 Oct, [facility] [id number] [place] [address] 48842- 8274 Oct, [facility] [id number] [place] [address] 16517- 1289 Oct, Mood disorder F39 ; Attention to urostomy Z43.6 ; Chronic pain syndrome G89.4 and Polyneuropathy G62.9 [facility] [id number] [place] [address] 48068- 0165 Sep, Polyneuropathy G62.9 [facility] [id number] [place] [address] 34084- 2261 Sep, [facility] [id number] [place] [address] 35769- 4160 Sep, Polyneuropathy G62.9 [facility] [address], [place] [address] 1986 Aug, Polyneuropathy G62.9 [facility] [id number] [place] [address] 36370- 5446 Aug, Malignant neoplasm of colon, unspecified part of colon C18.9 and Polyneuropathy G62.9 [facility] [address], [place] [address] 2317 Aug, Neuropathy G62.9 and Polyneuropathy G62.9 [facility] [address], [place] [address] 1209 Jul, Encounter for drug screening Z02.83 [facility] [address], [place] [address] 5795 Jul, Polyneuropathy G62.9 [facility] [id number] [place] [address] 50404- 1303 Jul, [facility] [id number] [place] [address] 04443- 3850 Jul, Neuropathy G62.9 and Anxiety F41.9 [facility] [id number] [place] [address] 39298- 3600 Jul, [facility] [id number] [place] [address] 19108- 0443 Jul, [facility] [id number] [place] [address] 52051- 6903 Jul, [facility] [id number] [place] [address] 35562- 2439 Jul, Polyneuropathy G62.9 [facility] [id number] [place] [address] 78428- 6292 Jul, [facility] [address], [place] [address]- 3541 Jun, [facility] [address], [place] [address]- 3690 Jun, [facility] [address], [place] [address]- 3298 Jun, [facility] [id number] [address] 07 Jun, 2017 Encounter for dental examination Z01.20 [facility] [address], [place] [address]- 5863 Jun, Polyneuropathy G62.9 and Anxiety F41.9 [facility] [address], [place] [address]- 6635 Jun, [facility] [id number] [address] May, Dental examination Z01.20 [facility] [id number] [place] [address] 14561- 3472 May, Polyneuropathy G62.9 [facility] [id number] [place] [address] 85724- 6649 Apr, Polyneuropathy G62.9 [facility] [id number] [place] [address] 06400- 3218 Apr, Polyneuropathy G62.9 [facility] [id number] [place] [address] 49507- 2979 Apr, Hypertension, benign I10 ; Polyneuropathy G62.9 and Anxiety F41.9 [facility] [id number] [place] [address] 34858- 4829 Apr, Primary insomnia F51.01 and Polyneuropathy G62.9 [facility] [id number] [place] [address] 70730- 5684 Apr, Primary insomnia F51.01 and Polyneuropathy G62.9 [facility] [id number] [place] [address] 18848- 9043 Mar, Primary insomnia F51.01 [facility] [id number] [place] [address] 65966- 3409 Mar, [facility] [id number] [place] [address] 55559- 7405 Mar, Polyneuropathy G62.9 [facility] [address], [place] [address] 7342 Feb, Primary insomnia F51.01 [place] [id number] [address] 2[address] Feb, [facility] [id number] [place] [address], [place] [address]- 1460 Feb, [facility] [id number] [place] [address]- 4592 Feb, Polyneuropathy G62.9 [facility] [id number] [place] [address], [place] [address]- 0389 Feb, Primary insomnia F51.01 [facility] [address] [place] [address], [place] [address]- 8674 Jan, [facility] [address] [place] [address], [place] [address]- 4561 Jan, [facility] [id number] [place] [address], [place] [address]- 7055 Dec, [facility] [address] [place] [address], [place] [address]- 6269 Dec, Primary insomnia F51.01 [facility] [address] [place] [address], [place] [address]- 9302 Dec, Primary insomnia F51.01 [facility] [id number] [place] [address]- 5227 Dec, [facility] [id number] [place] [address] 62422- 3343 Dec, [facility] [address], [place] [address]- 8879 Dec, [facility] [address] [place] [address], [place] [address]- 7019 Dec, [facility] [id number] [place] [address]- 3135 November, Primary insomnia F51.01 and Polyneuropathy G62.9 [facility] [id number] [place] [address] 14039- 3938 November, [facility] [id number] [place] [address] 78918- 9052 November, Abdominal pain, left lower quadrant R10.32 [facility] [id number] [place] [address] 06804- 4266 November, [facility] [id number] [place] [address] 72163- 9468 Oct, [facility] [id number] [place] [address] 26044- 0687 Oct, Abdominal pain, left lower quadrant R10.32 ; 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 and Neuropathy G62.9 [facility] [id number] [place] [address] 02078- 0024 Oct, [facility] [id number] [place] [address] 59692- 5873 Sep, [facility] [id number] [place] [address] [id number] Sep, [facility] [id number] [place] [address] 84604- 7646 Sep, [facility] [id number] [place] [address] 72287- 7441 Aug, [facility] [id number] [place] [address] 76010- 5602 Aug, [facility] [id number] [place] [address] 57333- 9095 Aug, Abdominal pain, left lower quadrant R10.32 ; Neuropathy G62.9 and Anxiety F41.9 [facility] [address] [place] [address] Jul, [facility] [address], [place] [address]- 8213 Jul, [facility] [id number], [place] [address]12 Jul, [facility] [address], [place] [address]- 9887 Jul, [facility] [id number] 6093 Jul, [facility] [address] 2190 Jun, [facility] [facility] [id number], [place] [address]- 0737 May, [facility] [facility] [id number] [place] [address] 91901- 7366 May, [facility] [address], [place] [address]- 6743 Apr, [facility] [address], [place] [address]- 6606 Apr, Muscle spasms of both lower extremities M62.838 and Cellulitis, unspecified cellulitis site L03.90 [facility] [address], [place] [address]- 6014 Apr, [facility] [address], [place] [address]- 3361 23 Mar, 2016 Generalized abdominal pain R10.84 [facility] [address], [place] [address]- 5383 20 Mar, 2016 [facility] [address], [place] [address]- 2542 14 Mar, 2016 [facility] [address], [place] [address]- 9829 14 Mar, 2016 [facility] [address], [place] [address]- 2540 13 Mar, 2016 [facility] [address], [place] [address]- 3795 12 Mar, 2016 [facility] [address] [facility] [id number], [place] [address]- 7529 Mar, [facility] [address] [facility] [id number] [place] [address], [place] [address]- 4566 Mar, [facility] [address] [facility] [id number], [place] [address]- 9768 Feb, Other specified diseases of anus and rectum K62.89 [facility] [address] [facility] [id number] [place] [address] 47465- 7780 Feb, [facility] [address] [facility] [id number] [place] [address], [place] [address]- 9702 Feb, Dizziness R42 [facility] [id number] [place] [address] 37333- 9352 Feb, [facility] [id number] [place] [address] 57538- 1294 Jan, Polyneuropathy G62.9 [facility] [address], [place] [address]- 7019 Jan, Other specified diseases of anus and rectum K62.89 [facility] [address], [place] [address]- 1210 Jan, [facility] [address], [place] [address] Jan, [facility] [address], [place] [address]- 5817 Jan, [facility] [address], [place] [address]- 3931 Jan, Dizziness R42 [facility] [address], [place] [address]- 7726 Dec, [facility] [address], [place] [address]- 0044 Dec, [facility] [id number], [place] [address]- 2955 Dec, [facility] [address], [place] [address]- 1192 Dec, Dizziness R42 [facility] [address], [place] [address]- 1234 November, [facility] [id number] [place] [address] 93562- 0153 Oct, [facility] [id number] [place] [address] 62991- 0370 Oct, [facility] [id number] [place] [address] 74483- 5223 Oct, [facility] [id number] [place] [address] 53436- 9097 Oct, [facility] [id number] [place] [address] 35833- 0521 Sep, [facility] [address], [place] [address]- 0210 Sep, Primary insomnia F51.01 [facility] [id number], [place] [address]- 7242 Sep, Primary insomnia F51.01 [facility] [address], [place] [address]- 0197 Sep, [facility] [address], [place] [address]- 6201 Aug, [facility] [address], [place] [address]- 8425 Aug, [facility] [address], [place] [address]- 5888 Aug, Primary insomnia F51.01 ; Mood disorder F39 ; Nausea and vomiting, unspecified intactability, vomiting of unspecified type R11.2 and Diarrhea R19.7 [facility] [id number], [place] [address]- 0994 15 Aug, 2015 [facility] [id number] [place] [address] 72408- 0661 05 Aug, 2015 Folliculitis L73.9 [facility] [id number] [place] [address] 88701- 1966 Aug, 2015 [facility] [id number] [place] [address] 16139- 7352 Aug, [facility] [id number] [place] [address] 94462- 9668 Jul, Folliculitis L73.9 [facility] [id number] [place] [address] 17618- 6373 Jul, [facility] [id number] [place] [address] 36535- 1549 Jun, Folliculitis L73.9 [facility] [id number] [place] [address] 97333- 0308 Jun, [facility] [id number] [place] [address] 96588- 6379 May, Polyneuropathy G62.9 [facility] [id number] [place] [address] 62736- 0079 May, Other specified diseases of anus and rectum K62.89 [facility] [id number] [place] [address] 57524- 6542 May, [facility] [id number] [place] [address] 58410- 0741 May, Primary insomnia F51.01 [facility] [id number] [place] [address] 33698- 0109 May, [facility] [id number] [place] [address] 36983- 3446 May, [facility] [id number] [place] [address] 96853- 2228 Apr, Other specified diseases of anus and rectum K62.89 ; Chronic fatigue R53.82 ; Urinary tract infection, site not specified N39.0 and Enterococcus as the cause of diseases classified elsewhere B95.2 [facility] [id number] [place] [address] 83140- 7136 16 Apr, 2015 [facility] [id number] [place] [address] 95132- 1881 Apr, [facility] [id number] [place] [address] 40651- 3202 Apr, 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 [facility] [id number] [place] [address] 21953- 8776 05 Apr, 2015 [facility] [id number] [place] [address] 41114- 0292 Mar, [facility] [id number] [place] [address] 14960- 3166 23 Mar, 2015 [facility] [id number] [place] [address] 86832- 9696 17 Mar, 2015 [facility] [id number] [place] [address] 21351 2543 14 Mar, 2015 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 [facility] [address], [place] [address] 2546 12 Mar, 2015 [facility] [id number] [place] [address] 79371 2546 11 Mar, 2015 [facility] [id number] [place] [address] 77888 2546 11 Mar, 2015 [facility] [id number] [place] [address] 90459 2546 10 Mar, 2015 [facility] [id number] [place] [address] 30496- 7463 Feb, [facility] [address] [id number], [place] [address]- 6414 Feb, [facility] [address] [facility] [id number], [place] [address]- 0489 Feb, [facility] [address] [facility] [id number], [place] [address] 2547 Jan, [facility] [address], [place] [address] 2549 Jan, Nausea 787.02 and Neuropathy 355.9 [facility] [address] [facility] [id number], [place] [address]- 3422 Jan, [facility] [address], [place] [address]- 8539 Jan, [facility] [address], [place] [address]- 3910 Jan, [facility] [address] [id number] [address] Jan, Dental examination V72.2 [facility] [address], [place] [address]- 2783 Jan, [facility] [address], [place] [address]- 1021 Dec, [facility] [address], [place] [address]- 8691 Dec, [facility] [address], [place] [address] 2542 Dec, Neuropathy 355.9 [facility] [address], [place] [address]- 8224 November, [facility] [address] [facility] [id number], [place] [address]- 7621 November, [facility] [id number] 7203 November, [facility] [place] [facility] [address] [id number] [place] [address]- 9143 14 Oct, 2014 [facility] [place] [facility] [address] [id number] [place] [address]- 6088 13 Oct, 2014 [facility] [place] [facility] [address] [id number] [place] [address]- 8653 30 Sep, 2014 [facility] [place] [facility] [address] [id number] [place] [address]- 4192 Sep, [facility] [place] [facility] [address] [id number] [place] [address]- 3751 Sep, [facility] [place] [facility] [address] [id number] [place] [address]- 8123 Sep, [facility] [place] [facility] [address] [facility] [id number] [place] [address]- 6195 Sep, [facility] [place] [facility] [address] [id number] [place] [address]- 3604 Sep, [facility] [place] [facility] [address] [id number] [place] [address]- 7034 Sep, [facility] [place] [facility] [address] [id number] [place] [address]- 1083 Sep, [facility] [place] [facility] [address] [facility] [id number] [place] [address]- 4647 Aug, [facility] [place] [facility] [address] [id number] [place] [address]- 7452 Aug, [facility] [place] [facility] [address] [id number] [place] [address]- 8041 Aug, [facility] [place] [facility] [address] [id number] [place] [address]- 0622 Aug, [facility] [place] [facility] [address] [id number] [place] [address]- 3241 Aug, [facility] [place] [facility] [address] [id number] [place] [address]- 9[address] Aug, [facility] [address] [id number] [place] [address] Aug, [facility] [place] [facility] [address] [id number] [place] [address] Aug, [facility] [place] [facility] [address] [id number] [place] [address] Jul, [facility] [place] [facility] [address] [id number] [place] [address] Jul, [facility] [place] [facility] [address] [id number] [place] [address] Jun, [facility] [place] [facility] [address] [id number] [place] [address] Jun, [facility] [place] [facility] [address] [id number] [place] [address] Jun, [facility] [place] [facility] [address] [id number] [place] [address] Jun, [facility] [place] [facility] [address] [id number] [place] [address] Jun, [facility] [place] [facility] [address] [id number] [place] [address] Jun, [facility] [place] [facility] [address] [id number] [place] [address] Jun, [facility] [place] [facility] [address] [id number] [place] [address] Jun, [facility] [place] [facility] [address] [id number] [place] [address] Jun, [facility] [place] [facility] [address] [id number] [place] [address] Jun, [facility] [place] [facility] [address] [id number] [place] [address] [address] Jun, [facility] [place] [facility] [address] [id number] [place] [address] May, [facility] [place] [facility] [address] [id number] [place] [address]- [address] May, [facility] [place] [facility] [address] [id number] [place] [address]- [address] May, [facility] [place] [facility] [address] [id number] [place] [address]- [address] May, [facility] [place] [facility] [address] [id number] [place] [address]- [address] May, [facility] [place] [facility] [address] [id number] [place] [address]- [address] May, [facility] [place] [facility] [address] [id number] [place] [address]- [address] May, [facility] [place] [facility] [address] [id number] [place] [address]- [address] May, [facility] [place] [facility] [address] [id number] [place] [address]- [address] May, [facility] [place] [facility] [address] [id number] [place] [address] Apr, [facility] [place] [facility] [address] [id number] [place] [address] Apr, [facility] [place] [facility] [address] [id number] [place] [address] Apr, [facility] [place] [facility] [address] [id number] [place] [address] Apr, [facility] [place] [facility] [address] [id number] [place] [address]- [address] Apr, [facility] [place] [facility] [address] [id number] [place] [address] Mar, [facility] [place] [facility] [address] [id number] [place] [address] Mar, [facility] [place] [facility] [address] [id number] [place] [address] Feb, [facility] [place] [facility] [address] [id number] [place] [address] Feb, [facility] [place] [facility] [address] [id number] [place] [address] Feb, [facility] [place] [facility] [address] [id number] [place] [address] Feb, [facility] [place] [facility] [address] [id number] [place] [address] Feb, [facility] [place] [facility] [address] [id number] [place] [address] Feb, [facility] [place] [facility] [address] [id number] [place] [address] Jan, [facility] [place] [facility] [address] [id number] [place] [address] Jan, [facility] [place] [facility] [address] [id number] [place] [address] Jan, [facility] [place] [facility] [address] [id number] [place] [address] Jan, [facility] [place] [facility] [address] [id number] [place] [address] Jan, [facility] [place] [facility] [address] [id number] [place] [address] 1326 Jan, [facility] [place] [facility] [address] [id number] [place] [address] 1294 Jan, [facility] [place] [facility] [address] [id number] [place] [address] 1594 Jan, [facility] [place] [facility] [address] [id number] [place] [address]- 2072 Jan, [facility] [place] [facility] [address] [id number] [place] [address] 8869 Jan, [facility] [place] [facility] [address] [id number] [place] [address] 4[address] Jan, [facility] [place] [facility] [address] [id number] [place] [address] 9756 Dec, [facility] [place] [facility] [address] [id number] [place] [address]- 6919 Dec, [facility] [place] [facility] [address] [id number] [place] [address]- 4[address] Dec, [facility] [place] [facility] [address] [id number] [place] [address]- 3658 Dec, [facility] [place] [facility] [address] [id number] [place] [address]202 Dec, [facility] [place] [facility] [address] [id number] [place] [address]- 4470 Dec, [facility] [place] [facility] [address] [id number] [place] [address]- 4453 November, [facility] [place] [facility] [address] [id number] [place] [address] 9071 November, [facility] [place] [facility] [address] [id number] [place] [address] 5745 November, [facility] [place] [facility] [address] [id number] [place] [address]- 0928 November, [facility] [place] [facility] [address] [id number] [place] [address]- 6643 November, [facility] [place] [facility] [address] [id number] [place] [address] 9002 November, [facility] [place] [facility] [address] [id number] [place] [address]- 1285 Oct, [facility] [place] [facility] [address] [id number] [place] [address] 9434 Oct, [facility] [place] [facility] [address] [id number] [place] [address] 4556 Oct, [facility] [address] [id number] [place] [address]25 Oct, [facility] [address] [id number] [place] [address] Sep, [facility] [address] [id number] [place] [address] 1607 Sep, [facility] [address] [id number] [place] [address] 8428 Sep, [facility] [address] [id number] [place] [address] 8037 Sep, [facility] [address] [id number] [place] [address] 6715 Sep, [facility] [address] [id number] [place] [address] 2880 Aug, [facility] [address] [id number] [place] [address] 9884 Aug, [facility] [address] [id number] [place] [address] 5444 Aug, [facility] [address] [id number] [place] [address] 1606 Aug, [facility] [address] [id number] [place] [address] 1671 Aug, [facility] [place], [place] [id number] May, [facility] [address] [id number] [place] [address] 8600 May, [facility] [address] [id number] [place] [address]36 08 May, 2013 [facility] [address] [id number] [place] [address] May, [facility] [place] [facility] [address] [id number] [place] [address] 5740 May, [facility] [place] [facility] [address] [id number] [place] [address]- 4907 Apr, [facility] [place] [facility] [address] [id number] [place] [address] 8023 Apr, [facility] [place] [facility] [address] [id number] [place] [address]- 6274 Apr, [facility] [place] [facility] [address] [id number] [place] [address]- 6419 Apr, [facility] [place] [facility] [address] [id number] [place] [address]- 3906 Apr, [facility] [place] [facility] [address] [id number] [place] [address] 1830 Apr, [facility] [place] [facility] [address] [id number], [place] [address] Apr, [facility] [place] [facility] [address] [id number] [place] [address]- 5599 Mar, [facility] [place] [facility] [address] [id number] [place] [address]- 8441 Mar, [facility] [place] [facility] [address] [id number], [place] [address]- [address] 24 Mar, 2013 [facility] [place] [facility] [address] [id number], [place] [address]65 16 Mar, 2013 [facility] [place] [facility] [address] [id number] [place] [address]- 2404 12 Mar, 2013 [facility] [place] [facility] [address] [id number], [place] [address]- [address] 06 Mar, 2013 [facility] [place] [facility] [address] [id number], [place] [address] 2052 Feb, [facility] [place] [facility] [address] [id number] [place] [address]- 2365 Feb, [facility] [place] [facility] [address] [id number] [place] [address]- 0192 Feb, [facility] [place] [facility] [address] [id number] [place] [address]- 3869 Feb, [facility] [place] [facility] [address] [id number] [place] [address]- 6651 Feb, [facility] [place] [facility] [address] [id number] [place] [address]- 8548 Feb, [facility] [place] [facility] [address] [id number] [place] [address]- 3451 Jan, [facility] [place] [facility] [address] [id number] [place] [address]- 3426 Dec, [facility] [place] [facility] [address] [id number] [place] [address]- 2208 Dec, [facility] [place] [facility] [address] [id number] [place] [address]- 9511 Dec, [facility] [place] [facility] [address] [id number] [place] [address]- 9997 Dec, [facility] [place] [facility] [address] [id number] [place] [address]- 4603 Dec, [facility] [place] [facility] [address] [id number] [place] [address]- 6986 Dec, [facility] [place] [facility] [address] [id number] [place] [address]- 4729 Dec, [facility] [place] [facility] [address] [id number] [place] [address]- 5227 Dec, [facility] [place] [facility] [address] [id number] [place] [address]- 1907 Dec, [facility] [place] [facility] [address] [id number] [place] [address]- 5390 November, [facility] [address] [facility] [id number], [place] [address]6 November, [facility] [address] [facility] [id number], [place] [address]136 Oct, [facility] [address] [facility] [id number], [place] [address]- 5516 Sep, [facility] [id number], [place] [address] Sep, [facility] [address] [facility] [id number], [place] [address]- 4433 Sep, [facility] [address] [facility] [id number], [place] [address]706 Sep, [facility] [id number], [place] [address] 1276 Aug, [facility] [id number], [place] [address]- 8566 Aug, [facility] [id number], [place] [address]- 5846 Jul, [facility] [address] [id number], [place] [address] Jul, [facility] [address] [id number], [place] [address] Jul, [facility] [address] [id number], [place] [address]- 6446 Sep, [facility] [address] [id number], [place] [address]- 7915 Sep, [facility] [address] [id number], [place] [address]- [address] Sep, IMMUNIZATIONS No Known Immunizations SOCIAL HISTORY Never Assessed REASON FOR VISIT Controlled Med Refill 09/13/17 PLAN OF CARE VITAL SIGNS MEDICATIONS Medication Instructions Dosage Frequency Start Date End Date Duration Status Oxycodone HCl 30 MG Orally 2 times a day 1 tablet as needed 12h Aug, Active Oxycodone HCl 10 mg Orally every 4 hrs 1 tablet as needed 4h Aug, 28 days Active RESULTS No [...]
--- OUTSIDE RECORDS SUMMARY | 2018-06-09 17:30 | XMS REPORT ---
Author Author LINDA BENTLEY Organization [facility] Address [address] [place] [address] Care Team Providers Care Ditch Digger Name Role Phone LINDA BENTLEY Unavailable PROBLEMS Type Condition ICD9-CM Code [id number] Code Onset Dates Condition Status SNOMED Code Problem Abdominal pain, left lower quadrant R10.32 Active 928433707 Problem Mood disorder F39 Active 08891137 Problem Hypertension, benign I10 Active 60840588 Problem Chronic pain syndrome G89.4 Active 314189962 Problem Attention to urostomy Z43.6 Active 788262285 Problem Anxiety F41.9 Active 84102008 Problem Neuropathy G62.9 Active 612875077 Problem Malignant neoplasm of colon, unspecified part of colon C18.9 Active 029417414 Problem Polyneuropathy G62.9 Active 05556948 Problem Incontinence of feces, unspecified fecal incontinence type R15.9 Active 15727168 Problem Chronic fatigue, unspecified R53.82 Active 674981767 Problem Hydronephrosis with ureteral stricture, not elsewhere classified N13.1 Active 98449806 Problem Primary insomnia F51.01 Active 983340942 Problem 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 714880150 ALLERGIES No Information ENCOUNTERS Encounter Location Date Diagnosis [place] [address] [address] Jan, [facility] [address] [address] 4070 Dec, Mood disorder F39 [facility] [id number] [place] [address] 50732- 1233 November, Polyneuropathy G62.9 [place] [id number] [address] 5[address] November, Medicare annual wellness visit, initial Z00.00 [place] [address] [id number] [place] [address] 88393- 2997 November, Mood disorder F39 [facility] [id number] [place] [address] 86728- 0959 Oct, Polyneuropathy G62.9 [facility] [id number] [place] [address] 21059- 1437 Oct, [facility] [id number] [place] [address] 30050- 6139 Oct, [facility] [id number] [place] [address] 53253- 6008 Oct, Mood disorder F39 ; Attention to urostomy Z43.6 ; Chronic pain syndrome G89.4 and Polyneuropathy G62.9 [facility] [id number] [place] [address] 52469- 3202 Sep, Polyneuropathy G62.9 [facility] [id number] [place] [address] 32093- 5250 Sep, [facility] [id number] [place] [address] 93090- 8538 Sep, Polyneuropathy G62.9 [facility] [id number] [place] [address] 35910- 6351 Aug, Polyneuropathy G62.9 [facility] [id number] [place] [address] 23272- 5579 Aug, Malignant neoplasm of colon, unspecified part of colon C18.9 and Polyneuropathy G62.9 [facility] [id number] [place] [address] 59590- 3712 Aug, Neuropathy G62.9 and Polyneuropathy G62.9 [facility] [id number] [place] [address] 82718- 7126 Jul, Encounter for drug screening Z02.83 [facility] [id number] [place] [address] 73965- 5518 Jul, Polyneuropathy G62.9 [facility] [address] [place] [address] 50136- 8735 Jul, [facility] [id number] [place] [address] 59987- 2817 Jul, Neuropathy G62.9 and Anxiety F41.9 [facility] [id number] [place] [address] 62839- 8538 Jul, [facility] [id number] [place] [address] 12692- 2994 Jul, [facility] [id number] [place] [address] 97986- 8736 Jul, [facility] [id number] [place] [address] 97719- 1932 Jul, Polyneuropathy G62.9 [facility] [id number] [place] [address] 69632- 0578 Jul, [facility] [id number] [place] [address] 71894- 5687 Jun, [facility] [id number] [place] [address] 11035- 9694 Jun, [facility] [id number] [place] [address] 69278- 2021 Jun, [facility] [id number] [place] [address] 07 Jun, 2017 Encounter for dental examination Z01.20 [facility] [address] [place] [address] 22502- 4845 Jun, Polyneuropathy G62.9 and Anxiety F41.9 [facility] [address] [place] [address] 87683- 1803 Jun, [facility] [address] [place] [id number] [place] [address] May, Dental examination Z01.20 [facility] [id number] [place] [address] 83297- 9368 May, Polyneuropathy G62.9 [facility] [id number] [place] [address] 51911- 4041 Apr, Polyneuropathy G62.9 [facility] [address] [address]1624- 0961 Apr, Polyneuropathy G62.9 [facility] [id number] [place] [address] 83586- 5803 Apr, Hypertension, benign I10 ; Polyneuropathy G62.9 and Anxiety F41.9 [facility] [id number] [place] [address] 09063- 2963 Apr, Primary insomnia F51.01 and Polyneuropathy G62.9 [facility] [id number] [place] [address] 73776- 9912 Apr, Primary insomnia F51.01 and Polyneuropathy G62.9 [facility] [id number] [place] [address] 82078- 9663 Mar, Primary insomnia F51.01 [facility] [address] [place] [address] 60116- 3325 Mar, [facility] [id number] [place] [address] 80542- 1662 Mar, Polyneuropathy G62.9 [facility] [id number] [place] [address] 74030- 1984 Feb, Primary insomnia F51.01 [facility] [id number] [place] [address] 52877- 3927 Feb, [facility] [id number] [place] [address] 88393- 4161 Feb, [facility] [id number] [address]- 6543 Feb, Polyneuropathy G62.9 [facility] [address] [address]- 5049 Feb, Primary insomnia F51.01 [facility] [address] [address]- 6855 Jan, [facility] [id number] [place] [address], [place] [address]- 5702 Jan, [facility] [address] [address]- 3988 Dec, [facility] [address] [place] [address], [place] [address]- 9469 Dec, Primary insomnia F51.01 [facility] [address] [place] [address], [place] [address]- 2697 Dec, Primary insomnia F51.01 [facility] [address] [address]- 5675 Dec, [facility] [address] [address]- 1798 Dec, [facility] [address] [address]- 4751 Dec, [facility] [address] [address]- 6468 Dec, [facility] [address] [address]- 7069 November, Primary insomnia F51.01 and Polyneuropathy G62.9 [facility] [address] [address]- 7454 November, [facility] [address] [address]- 2547 November, Abdominal pain, left lower quadrant R10.32 [facility] [address] [address]- 2279 November, [facility] [id number] [place] [address] 30219- 4651 Oct, [facility] [address] [place] [address] 31327- 8649 Oct, Abdominal pain, left lower quadrant R10.32 ; 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 and Neuropathy G62.9 [facility] [address] [place] [address] 28846- 3113 Oct, [facility] [id number] [place] [address] 23500- 5567 Sep, [facility] [id number] [place] [address] [id number] Sep, [facility] [id number] [place] [address] 24907- 2668 Sep, [facility] [id number] [place] [address] 18731- 9474 Aug, [facility] [id number] [place] [address] 79690- 8476 Aug, [facility] [id number] [place] [address] 64473- 4881 Aug, Abdominal pain, left lower quadrant R10.32 ; Neuropathy G62.9 and Anxiety F41.[address] [facility] [address] [place] [address] Jul, [facility] [address] [address]- 2310 Jul, [facility] [id number] [place] [address] 42841 -8486 Jul, [facility] [id number] [place] [address] 66212- 6270 Jul, [facility] [id number] [place] [address] 52387- 0145 Jul, [facility] [address] [facility] [id number] [address]- 6296 Jun, [facility] [address] [facility] [id number] 6592 May, [facility] [place] [address] [place] [id number] [address]- 8927 May, [facility] [place] [address] [facility] [id number] [place] [address] 67054- 8941 Apr, [facility] [address] [facility] [id number] [place] [address]- 0694 Apr, Muscle spasms of both lower extremities M62.838 and Cellulitis, unspecified cellulitis site L03.90 [facility] [address] [address]- 0112 Apr, [facility] [address] [address]- 4446 23 Mar, 2016 Generalized abdominal pain R10.84 [facility] [address] [facility] [id number] [address]- 2618 20 Mar, 2016 [facility] [place] [address] [place] [id number] [address]- 0968 14 Mar, 2016 [facility] [address] [facility] [id number] [address]- 2861 14 Mar, 2015 [facility] [place] [address] [facility] [id number] [place] [address]- 2547 13 Mar, 2015 [facility] [place] [address] [facility] [id number] [place] [address]- 2544 12 Mar, 2015 [facility] [place] [address] [id number] [address]- 2542 09 Mar, 2015 [facility] [place] [address] [id number] [address]- 254 06 Mar, 2015 [facility] [place] [address] [address]- 9005 17 Feb, 2016 Other specified diseases of anus and rectum K62.89 [facility] [id number] [place] [address] 01640- 1776 Feb, [facility] [id number] [place] [address] 20532- 1578 Feb, Dizziness R42 [facility] [id number] [place] [address] 64681- 1905 Feb, [facility] [id number] [place] [address] 18021- 1838 Jan, Polyneuropathy G62.9 [facility] [id number] [place] [address] 50068- 7428 Jan, Other specified diseases of anus and rectum K62.89 [facility] [id number] [place] [address] 42991- 3909 Jan, [facility] [id number] [place] [address] 14623 -7397 Jan, [facility] [id number] [place] [address] 05675- 4102 Jan, [facility] [address] [address]- 9062 Jan, Dizziness R42 [facility] [address] [address]- 7642 Dec, [facility] [address] [address]- 2935 Dec, [facility] [id number] [place] [address] 61240- 6710 Dec, [facility] [id number] [place] [address] 52361- 3436 Dec, Dizziness R42 [facility] [id number] [place] [address] 62155- 1978 November, [facility] [address] [address]- 8888 Oct, [facility] [id number] [place] [address] 31295- 1020 Oct, [facility] [id number] [place] [address] 61145- 3305 Oct, [facility] [id number] [place] [address] 34257- 5447 Oct, [facility] [id number] [place] [address] 67640- 5617 Sep, [facility] [id number] [place] [address] 91117- 2702 Sep, Primary insomnia F51.01 [facility] [id number] [place] [address] 61332- 9766 Sep, Primary insomnia F51.01 [facility] [id number] [place] [address] 08468- 3478 Sep, [facility] [id number] [place] [address] 55692- 4183 Aug, [facility] [address] [place] [address] 14913- 8213 Aug, [facility] [id number] [place] [address] 82134- 8908 Aug, Primary insomnia F51.01 ; Mood disorder F39 ; Nausea and vomiting, unspecified intactability, vomiting of unspecified type R11.2 and Diarrhea R19.7 [facility] [id number] [place] [address] 67798- 9786 Aug, [facility] [address] [address]- 6147 05 Aug, 2015 Folliculitis L73.9 [facility] [address] [address]- 9778 Aug, [facility] [address] [place] [address] 41123- 0116 Aug, [facility] [address] [place] [address] 47356- 8133 Jul, Folliculitis L73.9 [facility] [id number] [place] [address] 20018- 9204 Jul, [facility] [address] [place] [address] 86331- 3164 Jun, Folliculitis L73.9 [facility] [id number] [place] [address] 06716- 1010 Jun, [place] [id number] [place] [address] 92213- 8689 May, Polyneuropathy G62.9 [facility] [address] [place] [address] 14876- 4503 May, Other specified diseases of anus and rectum K62.89 [place] [address] [place] [address] 23725- 1316 May, [place] [address] [place] [address] 77494- 4194 May, Primary insomnia F51.01 [facility] [address] [place] [address] 30743- 4515 May, [facility] [address] [place] [address] 65243- 9675 May, [facility] [address] [place] [address] 09440- 6997 Apr, Other specified diseases of anus and rectum K62.89 ; Chronic fatigue R53.82 ; Urinary tract infection, site not specified N39.0 and Enterococcus as the cause of diseases classified elsewhere B95.2 [place] [address] [address]- 5916 16 Apr, 2015 [facility] [address] [facility] [id number] [address]- 6170 15 Apr, 2015 [facility] [address] [facility] [id number] [place] [address]- 2546 14 Apr, 2015 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 [facility] [address] [facility] [id number] [address] 2546 05 Apr, 2015 [facility] [address] [facility] [id number] [address]- 2540 26 Mar, 2014 [facility] [id number] [place] [address] 09760- 2406 23 Mar, 2015 [facility] [address] [address]- 4196 17 Mar, 2015 [facility] [id number] [place] [address] 24930- 2549 14 Mar, 2015 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 [facility] [id number] [address]- 3417 12 Mar, 2015 [facility] [id number] [address]- 8581 11 Mar, 2015 [facility] [address] [address]- 6950 11 Mar, 2015 [facility] [address] [facility] [id number] [address] 2549 10 Mar, 2015 [facility] [address] [facility] [id number] [address]- 2546 Feb, [facility] [address] [facility] [id number] [address]- 2548 14 Feb, 2015 [facility] [id number] [address]- 0226 Feb, [facility] [address] [facility] [id number] [address]- 2776 Jan, [facility] [address] [facility] [id number] [place] [address]- 8217 Jan, Nausea 787.02 and Neuropathy 355.9 [facility] [address] [address] 2540 Jan, [facility] [id number] [place] [address] 50946 2542 Jan, [facility] [address] [facility] [id number] [address]- 0892 Jan, [facility] [address] [id number] [place] [address] Jan, Dental examination V72.[address] [facility] [address] [address]- 8606 Jan, [facility] [id number] [place] [address] 83853- 3989 Dec, [facility] [address] [address]- 8723 Dec, [facility] [address]- 2700 Dec, Neuropathy 355.[address] [facility] [address] [address]- 9705 November, [facility] [address] [facility] [id number] [address]- 2547 November, [facility] [address] [facility] [id number] [address] November, [facility] [address] [facility] [id number] [address] Oct, [facility] [place] [facility] [id number] [address] Oct, [facility] [id number] [address] Sep, 2014 [facility] [place] [facility] [address] [id number] [place] [address] Sep, 2014 [facility] [place] [facility] [address] [id number] [place] [address] Sep, 2014 [facility] [place] [facility] [address] [id number] [place] [address] Sep, 2014 [facility] [place] [facility] [address] [id number] [place] [address] Sep, [facility] [place] [facility] [address] [id number] [place] [address] Sep, [facility] [place] [facility] [address] [facility] [id number] [place] [address] Sep, [facility] [place] [facility] [address] [facility] [id number] [place] [address] Sep, 2014 [facility] [place] [facility] [address] [facility] [id number] [place] [address] Aug, 2014 [facility] [place] [facility] [address] [facility] [id number] [place] [address] Aug, 2014 [facility] [place] [facility] [address] [facility] [id number] [place] [address] Aug, 2014 [facility] [place] [facility] [address] [facility] [id number] [place] [address] Aug, 2014 [facility] [place] [facility] [address] [facility] [id number] [place] [address] Aug, 2014 [facility] [place] [facility] [address] [id number] [place] [address] Aug, 2014 [facility] [place] [facility] [address] [facility] [id number] [place] [address] Aug, 2014 [facility] [place] [facility] [address] [facility] [id number] [place] [address] Aug, [facility] [place] [facility] [address] [id number] [place] [address] Jul, [facility] [place] [facility] [address] [id number] [place] [address] Jul, [facility] [place] [facility] [address] [id number] [place] [address] Jun, [facility] [place] [facility] [address] [id number] [place] [address] Jun, [facility] [place] [facility] [address] [id number] [place] [address] Jun, [facility] [place] [facility] [address] [id number] [place] [address] Jun, [facility] [place] [facility] [address] [id number] [place] [address] Jun, [facility] [place] [facility] [address] [id number] [place] [address] Jun, [facility] [place] [facility] [address] [id number] [place] [address] Jun, [facility] [place] [facility] [address] [id number] [place] [address] Jun, [facility] [place] [facility] [address] [id number] [place] [address] Jun, [facility] [place] [facility] [address] [id number] [place] [address] Jun, [facility] [place] [facility] [address] [id number] [place] [address] Jun, [facility] [place] [facility] [address] [id number] [place] [address] May, [facility] [place] [facility] [address] [id number] [place] [address] May, [facility] [place] [facility] [address] [id number] [place] [address] May, [facility] [place] [facility] [address] [id number] [place] [address] 8734 May, [facility] [place] [facility] [address] [id number] [place] [address] May, [facility] [place] [facility] [address] [id number] [place] [address] 7617 May, [facility] [place] [facility] [address] [id number] [place] [address] 60[address] May, [facility] [place] [facility] [address] [id number] [place] [address] May, [facility] [place] [facility] [address] [id number] [place] [address] 9264 May, [facility] [place] [facility] [address] [id number] [place] [address] Apr, [facility] [place] [facility] [address] [id number] [place] [address] Apr, [facility] [place] [facility] [address] [id number] [place] [address] 6345 Apr, [facility] [place] [facility] [address] [id number] [place] [address] Apr, [facility] [place] [facility] [address] [id number] [place] [address] 9283 Apr, [facility] [place] [facility] [address] [id number] [place] [address] 4417 Mar, [facility] [place] [facility] [address] [id number] [place] [address] 9168 Mar, [facility] [place] [facility] [address] [id number] [place] [address] 9504 Feb, [facility] [place] [facility] [address] [id number] [place] [address] 3744 Feb, [facility] [place] [facility] [address] [id number] [place] [address] Feb, [facility] [place] [facility] [address] [id number] [place] [address] Feb, [facility] [place] [facility] [address] [id number] [place] [address] 1312 Feb, [facility] [place] [facility] [address] [id number] [place] [address] 64[address] Feb, [facility] [place] [facility] [address] [id number] [place] [address] 160[address] Jan, [facility] [place] [facility] [address] [id number] [place] [address] 6880 Jan, [facility] [place] [facility] [address] [id number] [place] [address] 69[address] Jan, [facility] [place] [facility] [address] [id number] [place] [address] Jan, [facility] [place] [facility] [address] [id number] [place] [address]- 5547 Jan, [facility] [place] [facility] [address] [id number] [place] [address] 67[address] Jan, [facility] [place] [facility] [address] [id number] [place] [address]- 97[address] Jan, [facility] [place] [facility] [address] [id number] [place] [address] 2899 Jan, [facility] [place] [facility] [address] [id number] [place] [address]130 Jan, [facility] [place] [facility] [address] [id number] [place] [address]- 0268 Jan, [facility] [place] [facility] [address] [id number] [place] [address] 52[address] Jan, [facility] [place] [facility] [address] [id number] [place] [address] 8828 Dec, [facility] [place] [facility] [address] [id number] [place] [address] 9150 Dec, [facility] [place] [facility] [address] [id number] [place] [address]- 8929 Dec, [facility] [place] [facility] [address] [id number] [place] [address]- 1519 Dec, [facility] [place] [facility] [address] [id number] [place] [address]- 3827 Dec, [facility] [place] [facility] [address] [id number] [place] [address] 1477 Dec, [facility] [place] [facility] [address] [id number] [place] [address] 1823 November, [facility] [place] [facility] [address] [id number] [place] [address]- 4459 November, [facility] [place] [facility] [address] [id number] [place] [address]- 5289 November, [facility] [place] [facility] [address] [id number] [place] [address]- 5671 November, [facility] [place] [facility] [address] [id number] [place] [address]- 0426 November, [facility] [place] [facility] [address] [id number] [place] [address] 2051 November, [facility] [place] [facility] [address] [id number] [place] [address]- 7773 Oct, [facility] [place] [facility] [address] [id number] [place] [address]- 5455 Oct, [facility] [place] [facility] [address] [id number] [place] [address]- 1572 Oct, [facility] [place] [facility] [address] [id number] [place] [address]- 7445 Oct, [facility] [place] [facility] [address] [id number] [place] [address]- [address]26 17 Sep, 2013 [facility] [address] [id number] [place] [address] Sep, [facility] [address] [id number] [place] [address] 7179 Sep, [facility] [address] [id number] [place] [address]- 1855 Sep, [facility] [address] [id number] [place] [address]- 2497 Sep, [facility] [address] [id number] [place] [address]- [address]223 Aug, [facility] [address] [id number] [place] [address] 6053 Aug, [facility] [address] [id number] [place] [address] 9160 Aug, [facility] [address] [id number] [place] [address] 7546 Aug, [facility] [address] [id number] [place] [address]- 9765 Aug, [facility] [address] [place] [id number] May, [facility] [address] [id number] [place] [address] 7721 May, [facility] [address] [id number] [place] [address]- 0532 May, [facility] [address] [id number] [place] [address]- 1810 May, [facility] [address] [id number] [place] [address]- 5555 May, [facility] [address] [id number] [place] [address]- 1995 Apr, [facility] [address] [id number] [place] [address]- 1496 Apr, [facility] [place] [facility] [address] [id number] [place] [address]- 4727 Apr, [facility] [place] [facility] [address] [id number] [place] [address]- 7294 Apr, [facility] [place] [facility] [address] [id number] [place] [address]- 9952 Apr, [facility] [address] [id number] [place] [address]- 6845 Apr, [facility] [place] [facility] [address] [id number] [place] [address]- 7605 Apr, [facility] [address] [id number] [place] [address]- 8960 Mar, [facility] [place] [facility] [address] [id number] [place] [address]- 9906 Mar, [facility] [place] [facility] [address] [id number] [place] [address]- 4400 24 Mar, 2013 [facility] [place] [facility] [address] [id number] [place] [address]- 7095 16 Mar, 2013 [facility] [place] [facility] [address] [id number] [place] [address]- 3688 12 Mar, 2013 [facility] [place] [facility] [address] [id number] [address] 06 Mar, 2013 [facility] [place] [facility] [address] [id number] [place] [address]- 4834 Feb, [facility] [place] [facility] [address] [id number] [place] [address]- 8127 Feb, [facility] [place] [facility] [address] [id number] [place] [address]- 1051 Feb, [facility] [place] [facility] [address] [id number] [place] [address]- 2839 Feb, [facility] [place] [facility] [address] [id number] [place] [address]- 8780 Feb, [facility] [place] [facility] [address] [id number] [place] [address]- 1909 Feb, [facility] [place] [facility] [address] [id number] [place] [address]- 4860 Jan, [facility] [place] [facility] [address] [id number] [place] [address]- 6088 Dec, [facility] [place] [facility] [address] [id number] [place] [address]- 3333 Dec, [facility] [place] [facility] [address] [id number] [place] [address]- 9515 Dec, [facility] [place] [facility] [address] [id number] [place] [address]- 8317 Dec, [facility] [place] [facility] [address] [id number] [place] [address]- 2696 Dec, [facility] [place] [facility] [address] [id number] [place] [address]- 8877 Dec, [facility] [place] [facility] [address] [id number] [place] [address]- 8321 Dec, [facility] [place] [facility] [address] [id number] [place] [address]- 9647 Dec, [facility] [place] [facility] [address] [id number] [place] [address]- 7948 Dec, [facility] [place] [facility] [address] [id number] [place] [address]- 0707 November, [facility] [place] [facility] [address] [id number] [place] [address]- 8410 November, [facility] [place] [facility] [address] [id number] [place] [address]- 1144 Oct, [facility] [place] [facility] [address] [id number] [address] 21 Sep, 2012 [facility] [id number] [address] 20 Sep, 2012 [facility] [id number] [address]- 0242 15 Sep, 2012 [facility] [id number] [address]- 2428 Sep, [facility] [id number] [address] 4[address] Aug, [facility] [id number] [address] [address] Aug, [facility] [id number] [address]- 0089 Jul, [facility] [id number] [address]- 2037 Jul, [facility] [id number] [address]- 1052 Jul, [facility] [id number] [address]- 0508 Sep, [facility] [id number] [address]- 3[address] Sep, [facility] [id number] [address]- [address]84 10 Sep, 2011 IMMUNIZATIONS No Known Immunizations SOCIAL HISTORY Never Assessed REASON FOR VISIT Controlled Refill Request PLAN OF CARE VITAL SIGNS MEDICATIONS Unknown [...]
--- OUTSIDE RECORDS SUMMARY | 2018-06-09 17:31 | XMS REPORT ---
Author Author LINDA BENTLEY Organization [facility] Address [address] [place] [address] Care Team Providers Care Sausage Maker Name Role Phone LINDA BENTLEY Unavailable PROBLEMS Type Condition ICD9-CM Code FKM94-LY Code Onset Dates Condition Status SNOMED Code Problem Primary insomnia F51.01 Active 527716024 Problem Abdominal pain, left lower quadrant R10.32 Active 329101004 Problem 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 684803086 Problem Incontinence of feces, unspecified fecal incontinence type R15.9 Active 15962012 Problem Chronic fatigue, unspecified R53.82 Active 160925070 Problem Hydronephrosis with ureteral stricture, not elsewhere classified N13.1 Active 79698326 Problem Malignant neoplasm of colon, unspecified part of colon C18.9 Active 422773336 Problem Polyneuropathy G62.9 Active 51118667 Problem Mood disorder F39 Active 78382692 Problem Hypertension, benign I10 Active 13197530 Problem Anxiety F41.9 Active 55182962 Problem Neuropathy G62.9 Active 488388070 ALLERGIES No Information ENCOUNTERS Encounter Location Date Diagnosis [facility] [id number] [place] [address] 50054- 4622 November, Medicare annual wellness visit, initial Z00.00 [facility] [id number] [place] [address] 14676- 3914 Oct, [facility] [address] [address] 1670 Sep, [facility] [id number] [place] [address] 30663- 1638 Sep, Polyneuropathy G62.9 [facility] [address], [place] [address] 0281 Aug, Polyneuropathy G62.9 [facility] [id number] [place] [address] 21592- 0139 Aug, Malignant neoplasm of colon, unspecified part of colon C18.9 and Polyneuropathy G62.9 [facility] [id number] [place] [address] 82208- 1421 Aug, Neuropathy G62.9 and Polyneuropathy G62.9 [facility] [address] 90973- 6850 Jul, Encounter for drug screening Z02.83 [facility] [id number] [place] [address] 53337- 5891 Jul, Polyneuropathy G62.9 [facility] [id number] [place] [address] 79535- 2471 Jul, [facility] [address] 99400- 7458 Jul, Neuropathy G62.9 and Anxiety F41.9 [facility] [id number] [place] [address] 49530- 3679 Jul, [facility] [id number] [place] [address] 66421- 9675 Jul, [facility] [id number] [place] [address] 36790- 6981 Jul, [facility] [id number] [place] [address] 19999- 1086 Jul, Polyneuropathy G62.9 [facility] [id number] [place] [address] 81297- 5165 Jul, [facility] [id number] [place] [address] 41486- 3232 Jun, [facility] [id number] [place] [address] 25827- 7445 Jun, [facility] [address] [place] [address]- 7484 07 Jun, 2017 [facility] [id number] [address] 07 Jun, 2017 Encounter for dental examination Z01.20 [facility] [id number] [place] [address] 68402- 3121 Jun, Polyneuropathy G62.9 and Anxiety F41.9 [facility] [id number] [place] [address] 82363- 7353 Jun, [facility] [id number], [place] [address] May, Dental examination Z01.20 [facility] [id number] [place] [address] 13538- 1655 May, Polyneuropathy G62.9 [facility] [id number] [place] [address] 11009- 3851 Apr, Polyneuropathy G62.9 [facility] [id number] [place] [address] 26384- 5751 Apr, Polyneuropathy G62.9 [facility] [id number] [place] [address] 73117- 5037 Apr, Hypertension, benign I10 ; Polyneuropathy G62.9 and Anxiety F41.9 [facility] [id number] [place] [address] 44244- 2342 Apr, Primary insomnia F51.01 and Polyneuropathy G62.9 [facility] [id number] [place] [address] 72413- 3864 Apr, Primary insomnia F51.01 and Polyneuropathy G62.9 [facility] [id number] [place] [address] 42504- 8336 Mar, Primary insomnia F51.01 [facility] [id number] [place] [address] 27560- 4130 Mar, [facility] [address] [facility] [id number] [place] [address] 0177 Mar, Polyneuropathy G62.9 [facility] [address] [facility] [id number] [place] [address] 4415 Feb, Primary insomnia F51.01 [facility] [address] [facility] [id number] [place] [address]- 1263 Feb, [facility] [place] [facility] [address] [facility] [id number] [place] [address]- 4938 Feb, [facility] [address] [facility] [id number] [place] [address], [place] [address] 0770 Feb, Polyneuropathy G62.9 [facility] [address] [place] [address] 1170 Feb, Primary insomnia F51.01 [facility] [place] [facility] [id number] [place] [address], [place] [address]- 0282 Jan, [facility] [place] [facility] [address] [place] [address]- 9850 Jan, [facility] [place] [facility] [address] [place] [address]- 5853 Dec, [facility] [place] [facility] [address] [address]- 0729 Dec, Primary insomnia F51.01 [facility] [place] [facility] [address] [place] [address]- 8971 Dec, Primary insomnia F51.01 [facility] [place] [facility] [id number] [place] [address]- 7693 Dec, [facility] [place] [facility] [address] [place] [address]- 3879 Dec, [facility] [place] [facility] [address], [place] [address]- 3609 Dec, [facility] [address] [address]- 3574 Dec, [facility] [id number] [place] [address] 35040- 1141 November, Primary insomnia F51.01 and Polyneuropathy G62.9 [facility] [id number] [place] [address] 41363- 9487 November, [facility] [id number] [place] [address] 19661- 7814 November, Abdominal pain, left lower quadrant R10.32 [facility] [id number] [place] [address] 46909- 6702 November, [facility] [id number] [place] [address] 88235- 0988 Oct, [facility] [id number] [place] [address] 37839- 8330 Oct, Abdominal pain, left lower quadrant R10.32 ; 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 and Neuropathy G62.9 [facility] [id number] [place] [address] 63793- 5020 Oct, [facility] [id number] [place] [address] 60448- 3008 Sep, [facility] [id number] [place] [address] [id number] Sep, [facility] [id number] [place] [address] 85593- 8003 Sep, [facility] [id number] [place] [address] 12789- 1187 Aug, [facility] [id number] [place] [address] 81189- 1341 Aug, [facility] [id number] [place] [address] 51961- 3038 06 Feb, 2017 Abdominal pain, left lower quadrant R10.32 ; Neuropathy G62.9 and Anxiety F41.9 [facility] [address] [facility] [place] [address] Jul, [facility] [id number] [place] [address] 14806- 7966 Jul, [facility] [id number] [place] [address] 18021 -1919 Jul, [facility] [id number] [place] [address] 58520- 7417 Jul, [facility] [id number] [place] [address] 96709- 3399 Jul, [facility] [id number] [place] [address] 06724- 1804 Jun, [facility] [id number] [place] [address] 06895- 9049 May, [facility] [id number] [place] [address] 19986- 5514 May, [facility] [id number] [place] [address] 37880- 3488 Apr, [facility] [id number] [place] [address] 64003- 2068 Apr, Muscle spasms of both lower extremities M62.838 and Cellulitis, unspecified cellulitis site L03.90 [facility] [id number] [place] [address] 05260- 9570 Apr, [facility] [id number] [place] [address] 35391- 9934 23 Mar, 2016 Generalized abdominal pain R10.84 [facility] [id number] [place] [address] 78501- 7371 20 Mar, 2016 [facility] [id number] [place] [address] 17187- 0599 14 Mar, 2016 [facility] [id number] [address]- 3815 14 Mar, 2015 [facility] [address] [facility] [id number] [address]- 2090 13 Mar, 2016 [facility] [address] [facility] [id number] [address]- 2195 12 Mar, 2016 [facility] [id number] [place] [address] 32312- 2929 09 Mar, 2016 [facility] [address] [facility] [id number] [place] [address] 33616- 8301 06 Mar, 2016 [facility] [id number] [place] [address] 89133- 1311 Feb, Other specified diseases of anus and rectum K62.89 [facility] [address] [address]- 5512 Feb, [facility] [id number] [place] [address] 28981- 4234 Feb, Dizziness R42 [facility] [address], [place] [address]- 3720 Feb, [facility] [address], [place] [address]- 1375 Jan, Polyneuropathy G62.9 [facility] [address], [place] [address]- 8788 Jan, Other specified diseases of anus and rectum K62.89 [facility] [address], [place] [address]- 9752 Jan, [facility] [address], [place] [address] -8346 Jan, [facility] [address], [place] [address]- 2571 Jan, [facility] [address], [place] [address]- 6851 Jan, Dizziness R42 [facility] [address] [id number] [place] [address]- 5702 Dec, [facility] [address] [facility] [id number] [place] [address]- 7216 Dec, [facility] [address] [facility] [id number] [place] [address]- 9046 Dec, [facility] [address] [facility] [id number] [place] [address], [place] [address]- 6580 Dec, Dizziness R42 [facility] [address] [facility] [id number] [place] [address]- 3660 November, [facility] [address] [facility] [id number] [place] [address]- 6382 Oct, [facility] [address] [place] [address]- 5645 Oct, [facility] [address] [facility] [id number] [place] [address]- 2246 Oct, [facility] [address] [facility] [id number] [place] [address]- 8960 Oct, [facility] [address] [place] [address]- 8689 Sep, [facility] [address] [place] [address]- 2315 Sep, Primary insomnia F51.01 [facility] [place] [facility] [address] [facility] [id number] [place] [address]- 0296 Sep, Primary insomnia F51.01 [facility] [place] [facility] [address] [facility] [id number] [place] [address]- 7481 Sep, [facility] [place] [facility] [address] [facility] [id number] [place] [address]- 1756 Aug, [facility] [address] [place] [address] 1880 Aug, [facility] [id number] [place] [address] 79503- 2196 Aug, Primary insomnia F51.01 ; Mood disorder F39 ; Nausea and vomiting, unspecified intactability, vomiting of unspecified type R11.2 and Diarrhea R19.7 [facility] [id number] [place] [address] 05164- 5306 Aug, [facility] [id number] [place] [address] 14916- 6775 Aug, Folliculitis L73.9 [facility] [id number] [place] [address] 05089- 7541 Aug, [facility] [id number] [place] [address] 52798- 1412 Aug, [facility] [address] 07323- 2781 Jul, Folliculitis L73.9 [facility] [id number] [place] [address] 69448- 6019 Jul, [facility] [id number] [place] [address] 84479- 0221 Jun, Folliculitis L73.9 [facility] [id number] [place] [address] 44509- 2580 Jun, [facility] [id number] [place] [address] 46383- 3876 May, Polyneuropathy G62.9 [facility] [id number] [place] [address] 34604- 2726 May, Other specified diseases of anus and rectum K62.89 [facility] [id number] [place] [address] 16399- 2476 May, [facility] [id number] [place] [address] 63829- 2315 May, Primary insomnia F51.01 [facility] [address] [address]- 4938 May, [facility] [id number] [place] [address] 24105- 0022 May, [facility] [id number] [place] [address] 76310- 2231 Apr, Other specified diseases of anus and rectum K62.89 ; Chronic fatigue R53.82 ; Urinary tract infection, site not specified N39.0 and Enterococcus as the cause of diseases classified elsewhere B95.2 [facility] [id number] [place] [address] 48201- 4526 16 Apr, 2015 [facility] [id number] [place] [address] 55426- 8913 15 Apr, 2015 [facility] [id number] [place] [address] 72317- 0782 Apr, 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 [facility] [id number] [place] [address] 20978- 2904 05 Apr, 2015 [facility] [id number] [place] [address] 65051- 7245 26 Mar, 2015 [facility] [address] [address]- 1330 23 Mar, 2015 [facility] [id number] [place] [address] 87576- 9315 17 Mar, 2015 [facility] [id number] [place] [address] 70513- 6231 14 Mar, 2015 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 [facility] [id number] [place] [address] 10552- 4131 12 Mar, 2015 [facility] [id number] [place] [address] 34865- 0800 11 Mar, 2015 [facility] [id number], [place] [address]- 9139 11 Mar, 2015 [facility] [address] [facility] [id number] [address]- 8538 Mar, [facility] [place] [facility] [address], [place] [address] 254 Feb, [facility] [address], [place] [address]- 3210 Feb, [facility] [place] [facility] [address], [place] [address] 2542 Feb, [facility] [id number] [place] [address] 27063- 6811 Jan, [facility] [place] [facility] [address], [place] [address]- 1838 Jan, Nausea 787.02 and Neuropathy 355.9 [facility] [id number] [address]- 8635 Jan, [facility] [address], [place] [address]- 0702 Jan, [facility] [address], [place] [address]- 0809 Jan, [facility] [address] [id number] Jan, Dental examination V72.2 [facility] [address], [place] [address]- 0216 Jan, [facility] [place] [facility] [address], [place] [address]- 3729 Dec, [facility] [place] [facility] [address] 3412 Dec, [facility] [place] [facility] [address], [place] [address]- 6363 Dec, Neuropathy 355.9 [facility] [place] [facility] [address] [place] [address]- 3783 November, [facility] [place] [facility] [address] [id number] [place] [address]- 8402 November, [facility] [place] [facility] [address] [id number] [place] [address]- 6084 November, [facility] [place] [facility] [address] [id number] [place] [address]- 5927 Oct, [facility] [place] [facility] [address] [id number] [place] [address]- 1910 Oct, [facility] [place] [facility] [address] [id number] [place] [address]- 1592 Sep, [facility] [place] [facility] [address] [id number] [place] [address]- 5832 Sep, [facility] [place] [facility] [address] [id number] [place] [address]- 3182 Sep, [facility] [place] [facility] [address] [id number] [place] [address]- 3126 Sep, [facility] [place] [facility] [address] [id number] [place] [address]- 8842 Sep, [facility] [place] [facility] [address] [id number] [place] [address]- 2185 Sep, [facility] [place] [facility] [address] [id number] [place] [address] Sep, [facility] [place] [facility] [address] [id number] [place] [address] Sep, [facility] [place] [facility] [address] [id number] [place] [address] Aug, [facility] [place] [facility] [address] [id number] [place] [address] Aug, [facility] [place] [facility] [address] [id number] [address] Aug, [facility] [place] [facility] [address] [id number] [place] [address] Aug, 2014 [facility] [place] [facility] [address] [id number] [place] [address] Aug, 2014 [facility] [place] [facility] [address] [id number] [place] [address] Aug, 2014 [facility] [place] [facility] [address] [id number] [place] [address] Aug, 2014 [facility] [place] [facility] [address] [id number] [place] [address] Aug, [facility] [place] [facility] [address] [id number] [place] [address] Jul, [facility] [place] [facility] [address] [id number] [place] [address] Jul, [facility] [place] [facility] [address] [id number] [place] [address] Jun, [facility] [place] [facility] [address] [id number] [place] [address] Jun, [facility] [place] [facility] [address] [id number] [place] [address] Jun, [facility] [place] [facility] [address] [id number] [place] [address] Jun, [facility] [place] [facility] [address] [id number] [place] [address] Jun, [facility] [place] [facility] [address] [id number] [place] [address] Jun, [facility] [place] [facility] [address] [id number] [place] [address] Jun, [facility] [place] [facility] [address] [id number] [place] [address] Jun, [facility] [place] [facility] [address] [id number] [place] [address] Jun, [facility] [place] [facility] [address] [id number] [place] [address] Jun, [facility] [place] [facility] [address] [id number] [place] [address] Jun, [facility] [place] [facility] [address] [id number] [place] [address]- [address] May, [facility] [place] [facility] [address] [id number] [place] [address] May, [facility] [place] [facility] [address] [id number] [place] [address] May, [facility] [place] [facility] [address] [id number] [place] [address] May, [facility] [place] [facility] [address] [id number] [place] [address] May, [facility] [place] [facility] [address] [id number] [place] [address] 139[address] May, [facility] [place] [facility] [address] [id number] [place] [address] May, [facility] [place] [facility] [address] [facility] [id number] [place] [address] May, [facility] [place] [facility] [address] [id number] [place] [address] May, [facility] [place] [facility] [address] [id number], [place] [address] Apr, [facility] [place] [facility] [address] [id number] [place] [address] Apr, [facility] [place] [facility] [address] [id number] [place] [address] Apr, [facility] [place] [facility] [address] [id number], [place] [address] Apr, [facility] [place] [facility] [address] [id number] [place] [address] Apr, [facility] [place] [facility] [address] [id number] [place] [address] Mar, [facility] [place] [facility] [address] [id number] [place] [address] Mar, [facility] [place] [facility] [address] [id number] [place] [address] Feb, [facility] [place] [facility] [address] [id number] [place] [address] Feb, [facility] [place] [facility] [address] [id number] [place] [address] Feb, [facility] [place] [facility] [address] [id number] [place] [address] Feb, [facility] [place] [facility] [address] [id number] [place] [address] Feb, [facility] [place] [facility] [address] [id number] [place] [address] Feb, [facility] [place] [facility] [address] [id number] [place] [address] Jan, [facility] [place] [facility] [address] [id number] [place] [address] Jan, [facility] [place] [facility] [address] [id number] [place] [address] 15[address] Jan, [facility] [place] [facility] [address] [id number] [place] [address] Jan, [facility] [place] [facility] [address] [id number] [place] [address] Jan, [facility] [place] [facility] [address] [id number] [place] [address] Jan, [facility] [place] [facility] [address] [id number] [place] [address] Jan, [facility] [place] [facility] [address] [id number] [place] [address] Jan, [facility] [place] [facility] [address] [id number] [place] [address] 70[address] Jan, [facility] [place] [facility] [address] [id number] [place] [address] 99[address] Jan, [facility] [place] [facility] [address] [id number] [place] [address] 65[address] Jan, [facility] [place] [facility] [address] [id number] [place] [address] 75[address] Dec, [facility] [place] [facility] [address] [id number] [place] [address] 395[address] Dec, [facility] [place] [facility] [address] [id number] [place] [address] 6598 Dec, [facility] [place] [facility] [address] [id number] [place] [address] 6351 Dec, [facility] [place] [facility] [address] [id number] [place] [address] 70[address] Dec, [facility] [place] [facility] [address] [id number] [place] [address] 1433 Dec, [facility] [place] [facility] [address] [id number] [place] [address] 4[address] November, [facility] [place] [facility] [address] [id number] [place] [address] 9[address] November, [facility] [place] [facility] [address] [id number] [place] [address] 305[address] November, [facility] [place] [facility] [address] [id number] [place] [address] 8530 November, [facility] [place] [facility] [address] [id number] [place] [address]39 November, [facility] [place] [facility] [address] [id number] [place] [address] 3914 November, [facility] [address] [id number] [place] [address] Oct, [facility] [address] [id number] [place] [address]26 Oct, [facility] [address] [id number] [place] [address] 8213 Oct, [facility] [address] [id number] [place] [address] 6[address] Oct, [facility] [address] [id number] [place] [address] Sep, [facility] [address] [id number] [place] [address] 59[address] Sep, [facility] [address] [id number] [place] [address] Sep, [facility] [address] [id number] [place] [address] 7632 Sep, [facility] [address] [id number] [place] [address] 7900 Sep, [facility] [address] [id number] [place] [address] 24[address] Aug, [facility] [address] [id number] [place] [address] 2553 Aug, [facility] [address] [id number] [place] [address] 1054 Aug, [facility] [address] [id number] [place] [address] 8516 Aug, [facility] [address] [id number] [place] [address]- [address] 14 Aug, 2013 [facility] [address] [place] [id number] May, [facility] [place] [facility] [address] [id number] [place] [address] May, [facility] [place] [facility] [address] [id number] [place] [address] 7666 May, [facility] [place] [facility] [address] [id number] [place] [address] 7084 May, [facility] [place] [facility] [address] [id number] [place] [address] 1697 May, [facility] [place] [facility] [address] [id number] [place] [address] 5836 Apr, [facility] [place] [facility] [address] [id number] [place] [address] 2744 Apr, [facility] [place] [facility] [address] [id number] [place] [address] 6191 Apr, [facility] [place] [facility] [address] [id number] [place] [address] 8203 Apr, [facility] [place] [facility] [address] [id number] [place] [address]- 1685 Apr, [facility] [place] [facility] [address] [id number] [place] [address]- 7966 Apr, [facility] [place] [facility] [address] [id number] [place] [address] 9083 Apr, [facility] [place] [facility] [address] [id number] [place] [address] 1185 28 Mar, 2013 [facility] [place] [facility] [address] [id number] [place] [address]- 1105 25 Mar, 2013 [facility] [place] [facility] [address] [id number] [place] [address]- [address] 24 Mar, 2013 [facility] [place] [facility] [address] [id number] [place] [address]- 1184 16 Sep2012 [facility] [place] [facility] [address] [id number] [place] [address] 8090 Mar, [facility] [place] [facility] [address] [id number] [place] [address] 0367 Mar, [facility] [place] [facility] [address] [id number] [place] [address] 6961 Feb, [facility] [place] [facility] [address] [id number] [place] [address] 5238 Feb, [facility] [place] [facility] [address] [id number] [place] [address] 4[address] Feb, [facility] [place] [facility] [address] [id number] [place] [address]- 8995 Feb, [facility] [place] [facility] [address] [id number] [place] [address]- 0461 Feb, [facility] [place] [facility] [address] [id number] [place] [address]- 5736 Feb, [facility] [place] [facility] [address] [id number] [place] [address] 1650 Jan, [facility] [place] [facility] [address] [id number] [place] [address]- 9064 Dec, [facility] [place] [facility] [address] [id number] [place] [address]- 3162 Dec, [facility] [place] [facility] [address] [id number] [place] [address]- 8739 Dec, [facility] [place] [facility] [address] [id number], [place] [address] Dec, [facility] [place] [facility] [address] [id number] [place] [address]- 6117 Dec, [facility] [place] [facility] [address] [id number] [place] [address]- 3329 Dec, [facility] [place] [facility] [address] [id number] [place] [address]- 4637 Dec, [facility] [place] [facility] [address] [id number] [place] [address]- 4484 Dec, [facility] [address] [id number] [place] [address]- 3852 Dec, [facility] [address] [id number] [place] [address]- 4456 November, [facility] [address] [id number] [place] [address]- 9415 November, [facility] [address] [id number] [place] [address]- 7550 Oct, [facility] [address] [id number] [place] [address]- 2568 Sep, [facility] [address] [id number] [place] [address] 1941 Sep, [facility] [address] [id number] [place] [address]- 1423 Sep, [facility] [address] [id number] [place] [address]- 8127 Sep, [facility] [address] [id number] [place] [address]- 9705 Aug, [facility] [address] [id number] [place] [address]- 2275 Aug, [facility] [address] [id number] [place] [address]- 4186 Jul, [facility] [address] [id number] [place] [address]- 5986 Jul, [facility] [address] [id number] [place] [address]- 1065 Jul, [facility] [address] [id number] [place] [address]- 9106 Sep, [facility] [address] [id number] [place] [address]- 3831 Sep, [facility] [address] [facility] [id number] [place] [address] Sep, IMMUNIZATIONS No Known Immunizations SOCIAL HISTORY Never Assessed REASON FOR VISIT Lizbeth RING note PLAN OF CARE VITAL SIGNS MEDICATIONS Medication Instructions Dosage Frequency Start Date End Date Duration Status Ambien 10 mg Orally Once a day 1 tablet at bedtime as needed 24h Dec, Active RESULTS No Results PROCEDURES No Known [...]
--- OUTSIDE RECORDS SUMMARY | 2018-06-09 17:32 | XMS REPORT ---
Author Author LINDA BENTLEY Organization [facility] Address [address] [place] [address] Care Team Providers Care Youth Liaison Officer Name Role Phone LINDA BENTLEY Unavailable PROBLEMS Type Condition ICD9-CM Code RTK89-KN Code Onset Dates Condition Status SNOMED Code Problem Abdominal pain, left lower quadrant R10.32 Active 956920240 Problem Mood disorder F39 Active 63855185 Problem Hypertension, benign I10 Active 35965423 Problem Chronic pain syndrome G89.4 Active 693568055 Problem Attention to urostomy Z43.6 Active 610820642 Problem Anxiety F41.9 Active 82741075 Problem Neuropathy G62.9 Active 587180892 Problem Malignant neoplasm of colon, unspecified part of colon C18.9 Active 648863088 Problem Polyneuropathy G62.9 Active 80822636 Problem Incontinence of feces, unspecified fecal incontinence type R15.9 Active 47575475 Problem Chronic fatigue, unspecified R53.82 Active 243951204 Problem Hydronephrosis with ureteral stricture, not elsewhere classified N13.1 Active 83147985 Problem Primary insomnia F51.01 Active 770494880 Problem 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 270854415 ALLERGIES No Information ENCOUNTERS Encounter Location Date Diagnosis [place] [address] [address] Jan, [facility] [address] [address] Dec, Mood disorder F39 [facility] [id number] [place] [address] 32513- 0532 November, Polyneuropathy G62.9 [place] [address] [place] [id number] [address] November, Medicare annual wellness visit, initial Z00.00 [place] [address] [id number] [place] [address] 89834- 8078 November, Mood disorder F39 [facility] [id number] [place] [address] 93070- 3397 Oct, Polyneuropathy G62.9 [facility] [id number] [place] [address] 09618- 4593 Oct, [facility] [id number] [place] [address] 18575- 8927 Oct, [facility] [id number] [place] [address] 69255- 7288 Oct, Mood disorder F39 ; Attention to urostomy Z43.6 ; Chronic pain syndrome G89.4 and Polyneuropathy G62.9 [facility] [id number] [place] [address] 58112- 9637 Sep, Polyneuropathy G62.9 [facility] [address] [id number] [place] [address] 01471- 1546 Sep, [facility] [id number] [place] [address] 07400- 3010 Sep, Polyneuropathy G62.9 [facility] [id number] [place] [address] 63399- 9433 Aug, Polyneuropathy G62.9 [facility] [id number] [place] [address] 55973- 0704 Aug, Malignant neoplasm of colon, unspecified part of colon C18.9 and Polyneuropathy G62.9 [facility] [address] [id number] [place] [address] 16699- 5743 Aug, Neuropathy G62.9 and Polyneuropathy G62.9 [facility] [id number] [place] [address] 07034- 1821 Jul, Encounter for drug screening Z02.83 [facility] [address] [id number] [place] [address] 41790- 1669 Jul, Polyneuropathy G62.9 [facility] [address] [place] [address] 57549- 8887 Jul, [facility] [address] [id number] [place] [address] 95927- 2435 Jul, Neuropathy G62.9 and Anxiety F41.9 [facility] [address] [id number] [place] [address] 60563- 2066 Jul, [facility] [address] [id number] [place] [address] 31644- 2618 Jul, [facility] [address] [id number] [place] [address] 69196- 9371 Jul, [facility] [id number] [place] [address] 06569- 3418 Jul, Polyneuropathy G62.9 [facility] [address] [id number] [place] [address] 00783- 8963 Jul, [facility] [address] [id number] [place] [address] 55432- 8365 Jun, [facility] [address] [id number] [place] [address] 83038- 2659 Jun, [facility] [address] [place] [address] 54609- 8210 Jun, [facility] [id number] [place] [address] 07 Jun, 2017 Encounter for dental examination Z01.20 [facility] [address] [place] [address] 80875- 8221 Jun, Polyneuropathy G62.9 and Anxiety F41.9 [facility] [address] [place] [address] 78859- 8032 Jun, [facility] [address] [place] [id number] [place] [address] May, Dental examination Z01.20 [facility] [address] [id number] [place] [address] 09604- 2818 May, Polyneuropathy G62.9 [facility] [address] [id number] [place] [address] 24065- 0139 Apr, Polyneuropathy G62.9 [facility] [address] [address]02- 0373 Apr, Polyneuropathy G62.9 [facility] [address] [address] [id number] [place] [address] 88318- 0652 Apr, Hypertension, benign I10 ; Polyneuropathy G62.9 and Anxiety F41.9 [facility] [address] [address] [id number] [place] [address] 39286- 4885 Apr, Primary insomnia F51.01 and Polyneuropathy G62.9 [facility] [address] [place] [id number] [place] [address] 74116- 9275 Apr, Primary insomnia F51.01 and Polyneuropathy G62.9 [facility] [address] [address] [id number] [place] [address] 47895- 6901 Mar, Primary insomnia F51.01 [facility] [address] [place] [address] 17884- 0463 Mar, [facility] [address] [address] [id number] [place] [address] 29691- 8388 Mar, Polyneuropathy G62.9 [facility] [address] [id number] [place] [address] 71216- 2099 Feb, Primary insomnia F51.01 [facility] [address] [place] [id number] [place] [address] 22095- 8359 Feb, [facility] [address] [place] [id number] [place] [address] 18180- 4245 Feb, [facility] [address] [place] [id number] [place] [address]- 0045 Feb, Polyneuropathy G62.9 [facility] [address] [place] [address]- 0767 Feb, Primary insomnia F51.01 [facility] [address] [place] [address]- 5161 Jan, [facility] [id number] [place] [address], [place] [address]- 3348 Jan, [facility] [address] [place] [address]- 1730 Dec, [facility] [address] [place] [address], [place] [address]- 8804 Dec, Primary insomnia F51.01 [facility] [address] [place] [address], [place] [address]- 8325 Dec, Primary insomnia F51.01 [facility] [address] [place] [address]- 5017 Dec, [facility] [address] [place] [address]- 4357 Dec, [facility] [address] [place] [address]- 9656 Dec, [facility] [address] [address]- 2308 Dec, [facility] [address] [address]- 3430 November, Primary insomnia F51.01 and Polyneuropathy G62.9 [facility] [address] [place] [address]- 4439 November, [facility] [address] [address]- 8412 November, Abdominal pain, left lower quadrant R10.32 [facility] [address] [address] [address]- 1064 November, [facility] [address] [place] [address] 77468- 8518 Oct, [facility] [address] [place] [address] 61140- 0063 Oct, Abdominal pain, left lower quadrant R10.32 ; 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 and Neuropathy G62.9 [facility] [address] [place] [address] 61152- 5486 Oct, [facility] [address] [place] [id number] [place] [address] 38541- 0168 Sep, [facility] [address] [place] [id number] [place] [address] [id number] Sep, [facility] [address] [place] [address] 37966- 1213 Sep, [facility] [address] [place] [address] 63368- 1860 Aug, [facility] [address] [place] [id number] [place] [address] 31306- 2059 Aug, [facility] [address] [place] [address] 95734- 5731 Aug, Abdominal pain, left lower quadrant R10.32 ; Neuropathy G62.9 and Anxiety F41.9 [facility] [address] [place] [address] Jul, [facility] [address] [address]- 4185 Jul, [facility] [address] [id number] [place] [address] 02983 -3216 Jul, [facility] [address] [place] [address] 51654- 5579 Jul, [facility] [id number] [place] [address] 21054- 2734 Jul, [facility] [address] [facility] [id number] [address]- [address] Jun, [facility] [address] [facility] [id number]137 May, [facility] [address] [place] [id number] [address] 8526 May, [facility] [address] [facility] [id number] [place] [address] 81020- 0502 Apr, [facility] [address] [facility] [id number] [address]- 6614 Apr, Muscle spasms of both lower extremities M62.838 and Cellulitis, unspecified cellulitis site L03.90 [facility] [address] [address]- 6517 Apr, [facility] [address] [address]- 1323 23 Mar, 2016 Generalized abdominal pain R10.84 [facility] [address] [facility] [id number] [address]- 8658 20 Mar, 2016 [facility] [address] [place] [id number] [address]- 8914 14 Mar, 2016 [facility] [address] [facility] [id number] [address]- 3077 [address], [address] [facility] [address] [facility] [id number] [address]- 2547 [address], [address] [facility] [address] [facility] [id number] [address]- 2544 12 Mar, [address] [facility] [address] [place] [id number] [address]- 2544 09 Mar, [address] [facility] [address] [place] [id number] [address]- 2543 06 Mar, [address] [facility] [address] [address]- 5895 17 Feb, 2016 Other specified diseases of anus and rectum K62.89 [facility] [address] [place] [id number] [place] [address] 40978- 7478 Feb, [facility] [address] [place] [address] 03674- 3063 Feb, Dizziness R42 [facility] [address] [place] [id number] [place] [address] 19667- 7613 Feb, [facility] [address] [id number] [place] [address] 68027- 3837 Jan, Polyneuropathy G62.9 [facility] [id number] [place] [address] 97006- 4778 Jan, Other specified diseases of anus and rectum K62.89 [facility] [address] [place] [id number] [place] [address] 55574- 7759 Jan, [facility] [address] [place] [address] 64345 -5629 Jan, [facility] [address] [place] [address] 68642- 8750 Jan, [facility] [address] [address]- 6988 Jan, Dizziness R42 [facility] [address] [address]- 8576 Dec, [facility] [address] [address]- 2489 Dec, [facility] [id number] [place] [address] 92831- 8401 Dec, [facility] [address] [place] [address] 25342- 4344 Dec, Dizziness R42 [facility] [id number] [place] [address] 88070- 9145 November, [facility] [address] [address]- 4123 Oct, [facility] [id number] [place] [address] 47329- 8217 Oct, [facility] [id number] [place] [address] 80462- 4441 Oct, [facility] [address] [id number] [place] [address] 21890- 9780 Oct, [facility] [id number] [place] [address] 83782- 3364 Sep, [facility] [id number] [place] [address] 98980- 3007 Sep, Primary insomnia F51.01 [facility] [id number] [place] [address] 88780- 2581 Sep, Primary insomnia F51.01 [facility] [address] [id number] [place] [address] 96499- 2127 Sep, [facility] [id number] [place] [address] 62670- 3310 Aug, [facility] [address] [place] [address] 78185- 1423 Aug, [facility] [address] [id number] [place] [address] 22331- 7709 Aug, Primary insomnia F51.01 ; Mood disorder F39 ; Nausea and vomiting, unspecified intactability, vomiting of unspecified type R11.2 and Diarrhea R19.7 [facility] [address] [id number] [place] [address] 75816- 3637 Aug, [facility] [address] [address]- 5595 05 Aug, 2015 Folliculitis L73.9 [facility] [address] [address] [address]- 2076 Aug, [facility] [address] [place] [address] 08617- 1708 Aug, [facility] [address] [place] [address] 78024- 4178 Jul, Folliculitis L73.9 [facility] [address] [place] [id number] [place] [address] 16719- 8124 Jul, [facility] [address] [place] [address] 15718- 3659 Jun, Folliculitis L73.9 [facility] [address] [place] [id number] [place] [address] 62550- 4285 Jun, [place] [address] [place] [id number] [place] [address] 86189- 7198 May, Polyneuropathy G62.9 [facility] [address] [place] [address] 49505- 8044 May, Other specified diseases of anus and rectum K62.89 [place] [address] [place] [address] 76381- 4101 May, [place] [address] [place] [address] 09100- 7514 May, Primary insomnia F51.01 [facility] [address] [place] [address] 03373- 7156 May, [facility] [address] [place] [address] 03292- 2437 May, [facility] [address] [place] [address] 18064- 4376 Apr, Other specified diseases of anus and rectum K62.89 ; Chronic fatigue R53.82 ; Urinary tract infection, site not specified N39.0 and Enterococcus as the cause of diseases classified elsewhere B95.2 [place] [address] [place] [address]- 5993 16 Apr, 2015 [facility] [address] [facility] [id number] [address]- 7738 15 Apr, 2015 [facility] [place] [facility] [address] [facility] [id number] [place] [address]- 2546 14 Apr, 2015 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 [facility] [place] [facility] [address] [facility] [id number] [address] 2546 05 Apr, 2015 [facility] [address] [facility] [id number] [address]- 2541 26 Mar, 2014 [facility] [address] [place] [address] 84016- 1826 23 Mar, 2015 [facility] [address] [address]- 6667 17 Mar, 2015 [facility] [address] [place] [address] 76869- 2547 14 Mar, 2015 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 [id number] [address]- 0288 12 Mar, 2015 [facility] [id number] [address]- 2535 11 Mar, 2015 [facility] [address] [address]- 6599 11 Mar, 2015 [facility] [place] [facility] [address] [facility] [id number] [address] 2543 10 Mar, 2015 [facility] [place] [facility] [address] [facility] [id number] [address]- 2546 Feb, [facility] [place] [facility] [address] [facility] [id number] [address]- 2540 14 Feb, 2015 [facility] [place] [facility] [id number] [address]- 8540 Feb, [facility] [place] [facility] [address] [facility] [id number] [address]- 6873 Jan, [facility] [address] [facility] [id number] [address]- 4750 Jan, Nausea 787.02 and Neuropathy 355.9 [facility] [address] [address] 2549 Jan, [facility] [id number] [place] [address] 52728 2549 Jan, [facility] [address] [facility] [id number] [address]- 8414 Jan, [facility] [address] [id number] [place] [id number] Jan, Dental examination V72.2 [facility] [address] [address]- 7573 Jan, [facility] [address] [place] [address] 79154- 7619 Dec, [facility] [address] [address]- 0536 Dec, [facility] [address] 1550 Dec, Neuropathy 355.9 [facility] [address] [address]- 7757 November, [facility] [address] [facility] [id number] [address]- 2543 November, [facility] [place] [facility] [address] [facility] [id number] [place]- 2485 November, [facility] [address] [facility] [id number] [address]- 5971 Oct, [facility] [place] [facility] [address] [address]- 0230 Oct, [facility] [id number] [place] [address]- 7880 Sep, 2014 [facility] [place] [facility] [address] [id number] [place] [address]- 2318 Sep, 2014 [facility] [place] [facility] [address] [id number] [place] [address] Sep, 2014 [facility] [place] [facility] [address] [id number] [place] [address] Sep, 2014 [facility] [place] [facility] [address] [id number] [place] [address] Sep, [facility] [place] [facility] [address] [id number] [place] [address] Sep, [facility] [place] [facility] [address] [facility] [id number] [place] [address] Sep, [facility] [place] [facility] [address] [facility] [id number] [place] [address] Sep, 2014 [facility] [place] [facility] [address] [facility] [id number] [place] [address] Aug, 2014 [facility] [place] [facility] [address] [facility] [id number] [place] [address] Aug, 2014 [facility] [place] [facility] [address] [facility] [id number] [place] [address] Aug, 2014 [facility] [place] [facility] [address] [facility] [id number] [place] [address] Aug, 2014 [facility] [place] [facility] [address] [facility] [id number] [place] [address] Aug, 2014 [facility] [place] [facility] [address] [id number] [place] [address] Aug, 2014 [facility] [place] [facility] [address] [facility] [id number] [place] [address] Aug, 2014 [facility] [place] [facility] [address] [facility] [id number] [place] [address] Aug, [facility] [place] [facility] [address] [id number] [place] [address] Jul, [facility] [place] [facility] [address] [id number] [place] [address] Jul, [facility] [place] [facility] [address] [id number] [place] [address] Jun, [facility] [place] [facility] [address] [id number] [place] [address] Jun, [facility] [place] [facility] [address] [id number] [place] [address] Jun, [facility] [place] [facility] [address] [id number] [place] [address] Jun, [facility] [place] [facility] [address] [id number] [place] [address] Jun, [facility] [place] [facility] [address] [id number] [place] [address] Jun, [facility] [place] [facility] [address] [id number] [place] [address] Jun, [facility] [place] [facility] [address] [id number] [place] [address] Jun, [facility] [place] [facility] [address] [id number] [place] [address] Jun, [facility] [place] [facility] [address] [id number] [place] [address] Jun, [facility] [place] [facility] [address] [id number] [place] [address] Jun, [facility] [place] [facility] [address] [id number] [place] [address] May, [facility] [place] [facility] [address] [id number] [place] [address] May, [facility] [place] [facility] [address] [address] [id number] [place] [address] May, [facility] [place] [facility] [address] [id number] [place] [address] May, [facility] [place] [facility] [address] [id number] [place] [address] May, [facility] [place] [facility] [address] [id number] [place] [address] May, [facility] [place] [facility] [address] [id number] [place] [address] May, [facility] [place] [facility] [address] [id number] [place] [address] May, [facility] [place] [facility] [address] [id number] [place] [address] May, [facility] [place] [facility] [address] [id number] [place] [address] Apr, [facility] [place] [facility] [address] [id number] [place] [address] Apr, [facility] [place] [facility] [address] [id number] [place] [address] Apr, [facility] [place] [facility] [address] [id number] [place] [address] Apr, [facility] [place] [facility] [address] [id number] [place] [address] 37[address] Apr, [facility] [place] [facility] [address] [id number] [place] [address] Mar, [facility] [place] [facility] [address] [id number] [place] [address] Mar, [facility] [place] [facility] [address] [id number] [place] [address] Feb, [facility] [place] [facility] [address] [id number] [place] [address] 5[address] Feb, [facility] [place] [facility] [address] [id number] [place] [address] Feb, [facility] [place] [facility] [address] [id number] [facility] [place] [address] Feb, [facility] [place] [facility] [address] [id number] [place] [address] Feb, [facility] [place] [facility] [address] [id number] [place] [address] 4[address] Feb, [facility] [place] [facility] [address] [id number] [place] [address] Jan, [facility] [place] [facility] [address] [id number] [place] [address] Jan, [facility] [place] [facility] [address] [id number] [place] [address]16 Jan, [facility] [place] [facility] [address] [id number] [place] [address] 0[address] Jan, [facility] [place] [facility] [address] [id number] [place] [address]- 4567 Jan, [facility] [place] [facility] [address] [id number] [place] [address] 9134 Jan, [facility] [place] [facility] [address] [id number] [place] [address] Jan, [facility] [place] [facility] [address] [id number] [place] [address] 6209 Jan, [facility] [place] [facility] [address] [id number] [place] [address] 74[address] Jan, [facility] [place] [facility] [address] [id number] [place] [address]- 1586 Jan, [facility] [place] [facility] [address] [id number] [place] [address] 1329 Jan, [facility] [place] [facility] [address] [id number] [place] [address] 4118 Dec, [facility] [place] [facility] [address] [id number] [place] [address] 8758 Dec, [facility] [place] [facility] [address] [id number] [place] [address]- 1603 Dec, [facility] [place] [facility] [address] [id number] [place] [address] 4291 Dec, [facility] [place] [facility] [address] [id number] [place] [address] 3687 Dec, [facility] [place] [facility] [address] [id number] [place] [address]60 Dec, [facility] [place] [facility] [address] [id number] [place] [address] 9[address] November, [facility] [place] [facility] [address] [id number] [place] [address] 4713 November, [facility] [place] [facility] [address] [id number] [place] [address] 3214 November, [facility] [place] [facility] [address] [id number] [place] [address] 1814 November, [facility] [place] [facility] [address] [id number] [place] [address] November, [facility] [place] [facility] [address] [id number] [place] [address]- 8261 November, [facility] [place] [facility] [address] [id number] [place] [address]39 Oct, [facility] [place] [facility] [address] [id number] [place] [address]- 3985 Oct, [facility] [place] [facility] [address] [id number] [place] [address] 5856 Oct, [facility] [place] [facility] [address] [id number] [place] [address] 7561 Oct, [facility] [place] [facility] [address] [id number] [place] [address]- [address] 17 Sep, [address] [facility] [address] [id number] [place] [address] 0982 Sep, [facility] [address] [id number] [place] [address] 6860 Sep, [facility] [address] [id number] [place] [address] 5038 Sep, [facility] [address] [id number] [place] [address]- 1545 Sep, [facility] [address] [id number] [place] [address]163 Aug, [facility] [address] [id number] [place] [address] 4642 Aug, [facility] [address] [id number] [place] [address] 8836 Aug, [facility] [address] [id number] [place] [address] 1465 Aug, [facility] [address] [id number] [place] [address] 1148 Aug, [facility] [address] [place] [id number] May, [facility] [address] [id number] [place] [address] 3772 May, [facility] [address] [id number] [place] [address]- 3984 May, [facility] [address] [id number] [place] [address]- 3175 May, [facility] [address] [id number] [place] [address] 8200 May, [facility] [address] [id number] [place] [address]- 0038 Apr, [facility] [address] [id number] [place] [address]- 1668 Apr, [facility] [place] [facility] [address] [id number] [place] [address]- 9474 Apr, [facility] [place] [facility] [address] [id number] [place] [address]- 9518 Apr, [facility] [place] [facility] [address] [id number] [place] [address]- 8090 Apr, [facility] [address] [id number] [place] [address]- 9213 Apr, [facility] [place] [facility] [address] [id number] [place] [address]- 5316 Apr, [facility] [address] [id number] [place] [address]- 1496 Mar, [facility] [place] [facility] [address] [id number] [place] [address]- 7477 Mar, [facility] [place] [facility] [address] [id number] [place] [address]- 3827 24 Mar, 2013 [facility] [place] [facility] [address] [id number] [place] [address]- 0449 16 Mar, 2013 [facility] [place] [facility] [address] [id number] [place] [address]- 7428 12 Mar, 2013 [facility] [place] [facility] [address] [id number] [address] 06 Mar, 2013 [facility] [place] [facility] [address] [id number] [place] [address]- 7234 Feb, [facility] [place] [facility] [address] [id number] [place] [address]- 6109 Feb, [facility] [place] [facility] [address] [id number] [place] [address]- 7777 Feb, [facility] [place] [facility] [address] [id number] [place] [address]- 2239 Feb, [facility] [place] [facility] [address] [id number] [place] [address]- 4569 Feb, [facility] [place] [facility] [address] [id number] [place] [address]- 0734 Feb, [facility] [place] [facility] [address] [id number] [place] [address]- 2880 Jan, [facility] [place] [facility] [address] [id number] [place] [address]- 9390 Dec, [facility] [place] [facility] [address] [id number] [place] [address]- 2240 Dec, [facility] [place] [facility] [address] [id number] [place] [address]- 3338 Dec, [facility] [place] [facility] [address] [id number] [place] [address]- 3667 Dec, [facility] [place] [facility] [address] [id number] [place] [address]- 0161 Dec, [facility] [place] [facility] [address] [id number] [place] [address]- 2686 Dec, [facility] [place] [facility] [address] [id number] [place] [address]- 8496 Dec, [facility] [place] [facility] [address] [id number] [place] [address]- 3533 Dec, [facility] [place] [facility] [address] [id number] [place] [address]- 5454 Dec, [facility] [place] [facility] [address] [id number] [place] [address]- 7229 November, [facility] [place] [facility] [address] [id number] [place] [address]- 6269 November, [facility] [place] [facility] [address] [id number] [place] [address]- 3860 Oct, [facility] [place] [facility] [address] [id number] [address] 21 Sep, 2012 [facility] [id number] [address]- [address] 20 Sep, 2012 [facility] [id number] [address]- [address] 15 Sep, 2012 [facility] [id number] [address] Sep, [facility] [id number] [address]- 0655 Aug, [facility] [id number] [address]- 8772 Aug, [facility] [id number] [address]- 3301 Jul, [facility] [id number] [address]- 4469 Jul, [facility] [id number] [address]- 9493 Jul, [facility] [id number] [address]- 7672 Sep, [facility] [address] [address]- 7284 Sep, [facility] [address] [address] 10 Sep, 2011 IMMUNIZATIONS No Known Immunizations SOCIAL HISTORY Never Assessed REASON FOR VISIT Duplicate PLAN OF CARE VITAL SIGNS MEDICATIONS Unknown [...] cancer 12/06/12 Surgical History bladder removal 2013 Surgical History broken left arm 04/2017 Hospitalization [...]
--- OUTSIDE RECORDS SUMMARY | 2018-06-09 17:32 | XMS REPORT ---
Author Author LINDA BENTLEY Organization [facility] Address [address] [place] [address] Care Team Providers Care Dance Therapist Name Role Phone LINDA BENTLEY Unavailable PROBLEMS Type Condition ICD9-CM Code SFU87-RN Code Onset Dates Condition Status SNOMED Code Problem Abdominal pain, left lower quadrant R10.32 Active 612635140 Problem Mood disorder F39 Active 90612565 Problem Hypertension, benign I10 Active 87452418 Problem Chronic pain syndrome G89.4 Active 083786378 Problem Attention to urostomy Z43.6 Active 921515314 Problem Anxiety F41.9 Active 99987583 Problem Neuropathy G62.9 Active 738721367 Problem Malignant neoplasm of colon, unspecified part of colon C18.9 Active 247297315 Problem Polyneuropathy G62.9 Active 57676683 Problem Incontinence of feces, unspecified fecal incontinence type R15.9 Active 09093165 Problem Chronic fatigue, unspecified R53.82 Active 784277282 Problem Hydronephrosis with ureteral stricture, not elsewhere classified N13.1 Active 55162229 Problem Primary insomnia F51.01 Active 853104633 Problem 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 789981313 ALLERGIES No Information ENCOUNTERS Encounter Location Date Diagnosis [facility] [address], [place] [address] Jan, [facility] [address], [place] [address] 1510 Jan, [facility] [id number] [place] [address] 29559- 3175 Dec, Polyneuropathy G62.9 [facility] [id number] [address] 5025 14 Dec, 2017 Mood disorder F39 [facility] [id number] [place] [address] 54130- 9329 November, Polyneuropathy G62.9 [facility] [address], [place] [address] 4247 November, Medicare annual wellness visit, initial Z00.00 [facility] [id number] [place] [address] 07431- 1105 November, Mood disorder F39 [facility] [id number] [place] [address] 91787- 8484 Oct, Polyneuropathy G62.9 [facility] [id number] [place] [address] 36317- 1762 Oct, [facility] [id number] [place] [address] 29392- 1034 Oct, [facility] [id number] [place] [address] 81272- 1603 Oct, Mood disorder F39 ; Attention to urostomy Z43.6 ; Chronic pain syndrome G89.4 and Polyneuropathy G62.9 [facility] [id number] [place] [address] 65448- 3521 Sep, Polyneuropathy G62.9 [facility] [id number] [place] [address] 43961- 6510 Sep, [facility] [id number] [place] [address] 03551- 9731 Sep, Polyneuropathy G62.9 [facility] [address], [place] [address]- 9532 Aug, Polyneuropathy G62.9 [facility] [id number] [place] [address] 66900- 5121 Aug, Malignant neoplasm of colon, unspecified part of colon C18.9 and Polyneuropathy G62.9 [facility] [address], [place] [address] 2362 Aug, Neuropathy G62.9 and Polyneuropathy G62.9 [facility] [address], [place] [address]- 4209 Jul, Encounter for drug screening Z02.83 [facility] [address], [place] [address]- 7973 Jul, Polyneuropathy G62.9 [facility] [id number] [place] [address] 89084- 2918 Jul, [facility] [id number] [place] [address] 98773- 5957 Jul, Neuropathy G62.9 and Anxiety F41.9 [facility] [id number] [place] [address] 95402- 7299 Jul, [facility] [id number] [place] [address] 14658- 5433 Jul, [facility] [id number] [place] [address] 37454- 8694 Jul, [facility] [id number] [place] [address] 20880- 9046 Jul, Polyneuropathy G62.9 [facility] [id number] [place] [address] 68480- 0474 Jul, [facility] [address], [place] [address]- 6543 Jun, [facility] [address], [place] [address]- 0824 Jun, [facility] [address], [place] [address] 5403 Jun, [facility] [id number], [place] [address] 07 Jun, 2017 Encounter for dental examination Z01.20 [facility] [address], [place] [address]- 6342 Jun, Polyneuropathy G62.9 and Anxiety F41.9 [facility] [address], [place] [address]- 3067 Jun, [facility] [id number], [place] [address] May, Dental examination Z01.20 [facility] [id number] [place] [address] 75248- 2592 May, Polyneuropathy G62.9 [facility] [id number] [place] [address] 50002- 6056 Apr, Polyneuropathy G62.9 [facility] [id number] [place] [address] 95815- 9554 Apr, Polyneuropathy G62.9 [facility] [id number] [place] [address] 93603- 6265 Apr, Hypertension, benign I10 ; Polyneuropathy G62.9 and Anxiety F41.9 [facility] [id number] [place] [address] 38420- 6442 Apr, Primary insomnia F51.01 and Polyneuropathy G62.9 [facility] [id number] [place] [address] 98028- 6706 Apr, Primary insomnia F51.01 and Polyneuropathy G62.9 [facility] [address] [place] [address] 51535- 9810 Mar, Primary insomnia F51.01 [facility] [id number] [place] [address] 96949- 7605 Mar, [facility] [id number] [place] [address] 69874- 6806 Mar, Polyneuropathy G62.9 [facility] [address], [place] [address] 5323 Feb, Primary insomnia F51.01 [address] [address] [place] [address] 1055 Feb, [facility] [id number] [place] [address], [place] [address] 3762 Feb, [facility] [address] [place] [address]- 8609 Feb, Polyneuropathy G62.9 [facility] [id number] [place] [address], [place] [address]- 8935 Feb, Primary insomnia F51.01 [facility] [id number] [place] [address], [place] [address]- 3543 Jan, [facility] [address] [place] [address], [place] [address]- 1142 Jan, [facility] [id number] [place] [address], [place] [address]- 6257 Dec, [facility] [address] [place] [address], [place] [address]- 8275 Dec, Primary insomnia F51.01 [facility] [address] [place] [address], [place] [address]- 7896 Dec, Primary insomnia F51.01 [facility] [address] [place] [address]- 0661 Dec, [facility] [id number] [place] [address] 79032- 4830 Dec, [facility] [address], [place] [address]- 0163 Dec, [facility] [address] [place] [address], [place] [address]- 5703 Dec, [facility] [address] [place] [address]- 8445 November, Primary insomnia F51.01 and Polyneuropathy G62.9 [facility] [id number] [place] [address] 63768- 5869 November, [facility] [id number] [place] [address] 32311- 6741 November, Abdominal pain, left lower quadrant R10.32 [facility] [id number] [place] [address] 28126- 4456 November, [facility] [id number] [place] [address] 47763- 6323 Oct, [facility] [id number] [place] [address] 80228- 7125 Oct, Abdominal pain, left lower quadrant R10.32 ; 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 and Neuropathy G62.9 [facility] [address] [place] [address] 17095- 8306 Oct, [facility] [id number] [place] [address] 21659- 0893 Sep, [facility] [id number] [place] [address] [id number] Sep, [facility] [id number] [place] [address] 85805- 6423 Sep, [facility] [id number] [place] [address] 91489- 6233 Aug, [facility] [id number] [place] [address] 71310- 2632 Aug, [facility] [id number] [place] [address] 46344- 0579 Aug, Abdominal pain, left lower quadrant R10.32 ; Neuropathy G62.9 and Anxiety F41.9 [facility] [address] [place] [address] Jul, [facility] [address], [place] [address]- 1781 Jul, [facility] [id number], [place] [address]2219 Jul, [facility] [address], [place] [address]- 6774 Jul, [facility] [id number] 5377 Jul, [facility] [address]- 6646 Jun, [facility] [address] [id number], [place] [address]- 9241 May, [facility] [id number] [place] [address] 54675- 4193 May, [facility] [address], [place] [address]- 5521 Apr, [facility] [address], [place] [address]- 3884 Apr, Muscle spasms of both lower extremities M62.838 and Cellulitis, unspecified cellulitis site L03.90 [facility] [address], [place] [address]- 9215 Apr, [facility] [address], [place] [address]- 4266 23 Mar, 2016 Generalized abdominal pain R10.84 [facility] [address], [place] [address]- 8073 20 Mar, 2016 [facility] [address], [place] [address]- 2545 14 Mar, 2016 [facility] [address], [place] [address]- 6747 14 Mar, 2016 [facility] [address], [place] [address]- 2545 13 Mar, 2016 [facility] [address], [place] [address]- 8304 12 Mar, 2016 [facility] [address] [facility] [id number] [address]- 7623 Mar, [facility] [address] [facility] [id number] [place] [address], [place] [address]- 9446 Mar, [facility] [address] [facility] [id number] [address]- 5021 Feb, Other specified diseases of anus and rectum K62.89 [facility] [address] [facility] [id number] [place] [address] 83522- 3022 Feb, [facility] [address] [facility] [id number] [place] [address], [place] [address]- 1911 Feb, Dizziness R42 [facility] [id number] [place] [address] 60032- 2143 Feb, [facility] [id number] [place] [address] 05624- 9157 Jan, Polyneuropathy G62.9 [facility] [address], [place] [address]- 0807 Jan, Other specified diseases of anus and rectum K62.89 [facility] [address], [place] [address]- 2003 Jan, [facility] [address], [place] [address]5636 Jan, [facility] [address], [place] [address]- 2129 Jan, [facility] [address], [place] [address]- 8939 Jan, Dizziness R42 [facility] [address], [place] [address]- 6960 Dec, [facility] [address], [place] [address]- 4943 Dec, [facility] [id number], [place] [address]- 7726 Dec, [facility] [address], [place] [address]- 7114 Dec, Dizziness R42 [facility] [address], [place] [address]- 4754 November, [facility] [id number] [place] [address] 02414- 9308 Oct, [facility] [id number] [place] [address] 73879- 4113 Oct, [facility] [id number] [place] [address] 23766- 4232 Oct, [facility] [id number] [place] [address] 84264- 1120 Oct, [facility] [id number] [place] [address] 72041- 3406 Sep, [facility] [address], [place] [address]- 2626 Sep, Primary insomnia F51.01 [facility] [id number] [address]- 8657 Sep, Primary insomnia F51.01 [facility] [address], [place] [address]- 5266 Sep, [facility] [address], [place] [address]- 9366 Aug, [facility] [address], [place] [address]- 0105 Aug, [facility] [address], [place] [address]- 1250 Aug, Primary insomnia F51.01 ; Mood disorder F39 ; Nausea and vomiting, unspecified intactability, vomiting of unspecified type R11.2 and Diarrhea R19.7 [facility] [id number] [address]- 2319 15 Aug, 2015 [facility] [id number] [place] [address] 37183- 5724 05 Aug, 2015 Folliculitis L73.9 [facility] [id number] [place] [address] 38195- 3926 Aug, 2015 [facility] [id number] [place] [address] 01988- 7897 Aug, [facility] [id number] [place] [address] 28832- 9788 Jul, Folliculitis L73.9 [facility] [id number] [place] [address] 67490- 6702 Jul, [facility] [id number] [place] [address] 00569- 7068 Jun, Folliculitis L73.9 [facility] [id number] [place] [address] 91161- 1924 Jun, [facility] [id number] [place] [address] 40920- 2482 May, Polyneuropathy G62.9 [facility] [address] [place] [address] 13318- 5909 May, Other specified diseases of anus and rectum K62.89 [facility] [address] [place] [address] 63755- 0672 May, [facility] [address] [place] [address] 81940- 1981 May, Primary insomnia F51.01 [facility] [id number] [place] [address] 14510- 8425 May, [facility] [id number] [place] [address] 99097- 3411 May, [facility] [id number] [place] [address] 84521- 9409 Apr, Other specified diseases of anus and rectum K62.89 ; Chronic fatigue R53.82 ; Urinary tract infection, site not specified N39.0 and Enterococcus as the cause of diseases classified elsewhere B95.2 [facility] [id number] [place] [address] 89348- 1666 16 Apr, 2015 [facility] [id number] [place] [address] 61171- 4948 Apr, [facility] [id number] [place] [address] 29370- 5061 Apr, 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 [facility] [id number] [place] [address] 81695- 1396 05 Apr, 2015 [facility] [id number] [place] [address] 95960- 3132 Mar, [facility] [id number] [place] [address] 30969- 0256 23 Mar, 2015 [facility] [id number] [place] [address] 58541- 3796 17 Mar, 2015 [facility] [id number] [place] [address] 81380 2545 14 Mar, 2015 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 [facility] [address], [place] [address] 2546 12 Mar, 2015 [facility] [id number] [place] [address] 30680 2546 11 Mar, 2015 [facility] [id number] [place] [address] 43254 2546 11 Mar, 2015 [facility] [id number] [place] [address] 08237 2546 10 Mar, 2015 [facility] [id number] [place] [address] 13313- 9935 Feb, [facility] [address] [id number], [place] [address]- 4898 Feb, [facility] [address] [facility] [id number], [place] [address]- 5580 Feb, [facility] [address] [facility] [id number], [place] [address] 2548 Jan, [facility] [address], [place] [address] 2541 Jan, Nausea 787.02 and Neuropathy 355.9 [facility] [address] [facility] [id number], [place] [address]- 1602 Jan, [facility] [address], [place] [address]- 4216 Jan, [facility] [address], [place] [address]- 3931 Jan, [facility] [address] [id number] [id number] Jan, Dental examination V72.2 [facility] [address], [place] [address]- 1121 Jan, [facility] [address], [place] [address]- 0434 Dec, [facility] [address], [place] [address]- 1804 Dec, [facility] [address], [place] [address] 2542 Dec, Neuropathy 355.9 [facility] [address], [place] [address]- 1051 November, [facility] [address] [facility] [id number] [address]- 7319 November, [facility] [address] [id number] 0003 November, [facility] [place] [facility] [address] [id number] [place] [address]- 6683 14 Oct, 2014 [facility] [place] [facility] [address] [id number] [place] [address]- 8510 13 Oct, 2014 [facility] [place] [facility] [address] [id number] [place] [address]- 2527 30 Sep, 2014 [facility] [place] [facility] [address] [id number] [place] [address]- 5193 Sep, [facility] [place] [facility] [address] [id number] [place] [address]- 8146 Sep, [facility] [place] [facility] [address] [id number] [place] [address]- 3360 Sep, [facility] [place] [facility] [address] [facility] [id number] [place] [address]- 5808 Sep, [facility] [place] [facility] [address] [id number] [place] [address]- 6519 Sep, [facility] [place] [facility] [address] [id number] [place] [address] Sep, [facility] [place] [facility] [address] [id number] [place] [address] Sep, [facility] [place] [facility] [address] [facility] [id number] [place] [address] Aug, [facility] [place] [facility] [address] [id number] [place] [address] Aug, [facility] [place] [facility] [address] [id number] [place] [address] Aug, [facility] [place] [facility] [address] [id number] [place] [address] Aug, [facility] [place] [facility] [address] [id number] [place] [address] Aug, [facility] [place] [facility] [address] [id number] [place] [address] Aug, [facility] [address] [id number] [place] [address] Aug, [facility] [place] [facility] [address] [id number] [id number] [address] Aug, [facility] [place] [facility] [address] [id number] [place] [address] Jul, [facility] [place] [facility] [address] [id number] [place] [address] Jul, [facility] [place] [facility] [address] [id number] [place] [address] Jun, [facility] [place] [facility] [address] [id number] [place] [address] Jun, [facility] [place] [facility] [address] [id number] [place] [address] Jun, [facility] [place] [facility] [address] [id number] [place] [address] Jun, [facility] [place] [facility] [address] [id number] [place] [address] Jun, [facility] [place] [facility] [address] [id number] [place] [address] Jun, [facility] [place] [facility] [address] [id number] [place] [address] Jun, [facility] [place] [facility] [address] [id number] [place] [address] Jun, [facility] [place] [facility] [address] [id number] [place] [address] Jun, [facility] [place] [facility] [address] [id number] [place] [address] Jun, [facility] [place] [facility] [address] [id number] [place] [address] Jun, [facility] [place] [facility] [address] [id number] [place] [address] May, [facility] [place] [facility] [address] [id number] [place] [address] May, [facility] [place] [facility] [address] [id number] [place] [address] May, [facility] [place] [facility] [address] [id number] [place] [address] May, [facility] [place] [facility] [address] [id number] [place] [address] May, [facility] [place] [facility] [address] [id number] [place] [address] May, [facility] [place] [facility] [address] [id number] [place] [address] May, [facility] [place] [facility] [address] [address] [id number] [place] [address] May, [facility] [place] [facility] [address] [id number] [place] [address] May, [facility] [place] [facility] [address] [id number] [place] [address] Apr, [facility] [place] [facility] [address] [id number] [place] [address] Apr, [facility] [place] [facility] [address] [id number] [place] [address] Apr, [facility] [place] [facility] [address] [id number] [place] [address] Apr, [facility] [place] [facility] [address] [id number] [place] [address] 4067 Apr, [facility] [place] [facility] [address] [id number] [place] [address] Mar, [facility] [place] [facility] [address] [id number] [place] [address] 8537 Mar, [facility] [place] [facility] [address] [id number] [place] [address] Feb, [facility] [place] [facility] [address] [id number] [place] [address] 9959 Feb, [facility] [place] [facility] [address] [id number] [place] [address] Feb, [facility] [place] [facility] [address] [id number] [place] [address] 4559 Feb, [facility] [place] [facility] [address] [id number] [place] [address] Feb, [facility] [place] [facility] [address] [id number] [place] [address] 7168 Feb, [facility] [place] [facility] [address] [id number] [place] [address] 7247 Jan, [facility] [place] [facility] [address] [id number] [place] [address] 4003 Jan, [facility] [place] [facility] [address] [id number] [place] [address] 8469 Jan, [facility] [place] [facility] [address] [id number] [place] [address] 0829 Jan, [facility] [place] [facility] [address] [id number] [place] [address] 6754 Jan, [facility] [place] [facility] [address] [id number] [place] [address] Jan, [facility] [place] [facility] [address] [id number] [place] [address] Jan, [facility] [place] [facility] [address] [id number] [place] [address]- 6234 Jan, [facility] [place] [facility] [address] [id number] [place] [address] 63[address] Jan, [facility] [place] [facility] [address] [id number] [place] [address] 9852 Jan, [facility] [place] [facility] [address] [id number] [place] [address] 6468 Jan, [facility] [place] [facility] [address] [id number] [place] [address] 8935 Dec, [facility] [place] [facility] [address] [id number] [place] [address] 4383 Dec, [facility] [place] [facility] [address] [id number] [place] [address] 2179 Dec, [facility] [place] [facility] [address] [id number] [place] [address] 9807 Dec, [facility] [place] [facility] [address] [id number] [place] [address] Dec, [facility] [place] [facility] [address] [id number] [place] [address] 1223 Dec, [facility] [place] [facility] [address] [id number] [place] [address] 3597 November, [facility] [place] [facility] [address] [id number] [place] [address] 2223 November, [facility] [place] [facility] [address] [id number] [place] [address] 1295 November, [facility] [place] [facility] [address] [id number] [place] [address] 4478 November, [facility] [place] [facility] [address] [id number] [place] [address] 6807 November, [facility] [place] [facility] [address] [id number] [place] [address] 4568 November, [facility] [place] [facility] [address] [id number] [place] [address]377 Oct, [facility] [place] [facility] [address] [id number] [place] [address] 0801 Oct, [facility] [place] [facility] [address] [id number] [place] [address] 4367 Oct, [facility] [address] [id number] [place] [address] 2021 Oct, [facility] [address] [id number] [place] [address]276 Sep, [facility] [address] [id number] [place] [address] 9092 Sep, [facility] [address] [id number] [place] [address] 5924 Sep, [facility] [address] [id number] [place] [address] 8172 Sep, [facility] [address] [id number] [place] [address] 2050 Sep, [facility] [address] [id number] [place] [address] 2382 Aug, [facility] [address] [id number] [place] [address] 3456 Aug, [facility] [address] [id number] [place] [address] 1289 Aug, [facility] [address] [id number] [place] [address] 9476 Aug, [facility] [address] [id number] [place] [address] 8736 Aug, [facility] [address] [place] [id number] May, [facility] [address] [id number] [place] [address] May, [facility] [address] [id number] [place] [address]886 08 May, 2013 [facility] [address] [id number] [place] [address] 8989 May, [facility] [place] [facility] [address] [id number] [place] [address] 9397 May, [facility] [place] [facility] [address] [id number] [place] [address]- 4540 Apr, [facility] [place] [facility] [address] [id number] [place] [address]- 2524 Apr, [facility] [place] [facility] [address] [id number] [place] [address]- 4065 Apr, [facility] [place] [facility] [address] [id number] [place] [address] 2738 Apr, [facility] [place] [facility] [address] [id number] [place] [address]- 0704 Apr, [facility] [place] [facility] [address] [id number] [place] [address]- 1643 Apr, [facility] [place] [facility] [address] [id number], [place] [address] 9185 Apr, [facility] [place] [facility] [address] [id number] [place] [address]- 1514 Mar, [facility] [place] [facility] [address] [id number] [place] [address]- 4830 Mar, [facility] [place] [facility] [address] [id number] [address] 24 Mar, 2013 [facility] [place] [facility] [address] [id number], [place] [address] 2354 16 Mar, 2013 [facility] [place] [facility] [address] [id number] [place] [address]- 9681 12 Mar, 2013 [facility] [place] [facility] [address] [id number], [place] [address]- 4835 06 Mar, 2013 [facility] [place] [facility] [address] [id number], [place] [address] 4046 Feb, [facility] [place] [facility] [address] [id number] [place] [address]- 3728 Feb, [facility] [place] [facility] [address] [id number] [place] [address]- 4206 Feb, [facility] [place] [facility] [address] [id number] [place] [address]- 0012 Feb, [facility] [place] [facility] [address] [id number] [place] [address]- 3082 Feb, [facility] [place] [facility] [address] [id number] [place] [address]- 5237 Feb, [facility] [place] [facility] [address] [id number] [place] [address]- 9288 Jan, [facility] [place] [facility] [address] [id number] [place] [address]- 5899 Dec, [facility] [place] [facility] [address] [id number] [place] [address]- 4289 Dec, [facility] [place] [facility] [address] [id number] [place] [address]- 8838 Dec, [facility] [place] [facility] [address] [id number] [place] [address]- 1615 Dec, [facility] [place] [facility] [address] [id number] [place] [address]- 3628 Dec, [facility] [place] [facility] [address] [id number] [place] [address]- 5702 Dec, [facility] [place] [facility] [address] [id number] [place] [address]- 7410 Dec, [facility] [place] [facility] [address] [id number] [place] [address]- 5744 Dec, [facility] [place] [facility] [address] [id number] [place] [address]- 1614 Dec, [facility] [place] [facility] [address] [id number] [place] [address]- 9619 November, [facility] [address] [facility] [id number] [address] 6736 November, [facility] [address] [facility] [id number], [place] [address]106 Oct, [facility] [address] [facility] [id number], [place] [address]- 2986 Sep, [facility] [id number], [place] [address]- [address]406 Sep, [facility] [address] [facility] [id number], [place] [address]- 8868 Sep, [facility] [id number], [place] [address]- 8136 Sep, [facility] [id number], [place] [address] 5176 Aug, [facility] [id number], [place] [address]- 5046 Aug, [facility] [id number], [place] [address] 8138 Jul, [facility] [address] [id number], [place] [address] 1646 Jul, [facility] [address] [id number], [place] [address] Jul, [facility] [address] [id number], [place] [address]- 0150 Sep, [facility] [address] [id number], [place] [address] Sep, [facility] [address] [id number], [place] [address]- 2246 Sep, IMMUNIZATIONS No Known Immunizations SOCIAL HISTORY Never Assessed REASON FOR VISIT Controlled Med Refill PLAN OF CARE VITAL SIGNS MEDICATIONS Medication Instructions Dosage Frequency Start Date End Date Duration Status Gabapentin 600 MG Orally 3 times a day 2 tablet 8h 30 days Active Promethazine HCl 25 MG Orally every 6 hrs 1 tablet as needed 6h Active Lyrica 150 MG Orally 3 times [...]
--- OUTSIDE RECORDS SUMMARY | 2018-06-09 17:33 | XMS REPORT ---
Author Author LINDA BENTLEY Organization 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 Name Role Phone LINDA BENTLEY Unavailable PROBLEMS Type Condition ICD9-CM Code [id number] Code Onset Dates Condition Status SNOMED Code Problem Abdominal pain, left lower quadrant R10.32 Active 486722333 Problem Mood disorder F39 Active 82203293 Problem Hypertension, benign I10 Active 07365985 Problem Chronic pain syndrome G89.4 Active 669149057 Problem Attention to urostomy Z43.6 Active 498903830 Problem Anxiety F41.9 Active 02628043 Problem Neuropathy G62.9 Active 711638604 Problem Malignant neoplasm of colon, unspecified part of colon C18.9 Active 084692051 Problem Polyneuropathy G62.9 Active 47345559 Problem Incontinence of feces, unspecified fecal incontinence type R15.9 Active 31199607 Problem Chronic fatigue, unspecified R53.82 Active 415035082 Problem Hydronephrosis with ureteral stricture, not elsewhere classified N13.1 Active 75232184 Problem Primary insomnia F51.01 Active 693356254 Problem 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 [address], [place] [address] Dec, Mood disorder F39 [facility] [id number] [place] [address] 29443- 9965 November, Polyneuropathy G62.9 [place] [id number] [address] 3[address] November, Medicare annual wellness visit, initial Z00.00 [place] [address] [id number] [place] [address] 80635- 9105 November, Mood disorder F39 [facility] [id number] [place] [address] 40711- 4821 Oct, Polyneuropathy G62.9 [facility] [id number] [place] [address] 18759- 1471 Oct, [facility] [id number] [place] [address] 73113- 7997 Oct, [facility] [id number] [place] [address] 57809- 5232 Oct, Mood disorder F39 ; Attention to urostomy Z43.6 ; Chronic pain syndrome G89.4 and Polyneuropathy G62.9 [facility] [id number] [place] [address] 48252- 7675 Sep, Polyneuropathy G62.9 [facility] [id number] [place] [address] 71292- 2551 Sep, [facility] [id number] [place] [address] 36987- 2835 Sep, Polyneuropathy G62.9 [facility] [id number] [place] [address] 68785- 5399 Aug, Polyneuropathy G62.9 [facility] [id number] [place] [address] 62641- 0230 Aug, Malignant neoplasm of colon, unspecified part of colon C18.9 and Polyneuropathy G62.9 [facility] [id number] [place] [address] 50542- 7550 Aug, Neuropathy G62.9 and Polyneuropathy G62.9 [facility] [id number] [place] [address] 93431- 8006 Jul, Encounter for drug screening Z02.83 [facility] [id number] [place] [address] 16414- 4616 Jul, Polyneuropathy G62.9 [facility] [id number] [place] [address] 37170- 5892 Jul, [facility] [id number] [place] [address] 30309- 1792 Jul, Neuropathy G62.9 and Anxiety F41.9 [facility] [id number] [place] [address] 25892- 6238 Jul, [facility] [id number] [place] [address] 16138- 0533 Jul, [facility] [id number] [place] [address] 38306- 4504 Jul, [facility] [id number] [place] [address] 22915- 1701 Jul, Polyneuropathy G62.9 [facility] [id number] [place] [address] 63578- 7260 Jul, [facility] [id number] [place] [address] 81770- 7203 Jun, [facility] [id number] [place] [address] 09821- 7826 Jun, [facility] [id number] [place] [address] 92087- 4522 Jun, [facility] [id number] [place] [address] 07 Jun, 2017 Encounter for dental examination Z01.20 [facility] [id number] [place] [address] 53964- 9580 Jun, Polyneuropathy G62.9 and Anxiety F41.9 [facility] [address] [place] [address] 55705- 2787 Jun, [facility] [address] [place] [id number] [place] [address] May, Dental examination Z01.20 [facility] [id number] [place] [address] 43052- 2389 May, Polyneuropathy G62.9 [facility] [id number] [place] [address] 29142- 6704 Apr, Polyneuropathy G62.9 [facility] [address] 40683- 1771 Apr, Polyneuropathy G62.9 [facility] [id number] [place] [address] 74595- 4074 Apr, Hypertension, benign I10 ; Polyneuropathy G62.9 and Anxiety F41.9 [facility] [id number] [place] [address] 92251- 5779 Apr, Primary insomnia F51.01 and Polyneuropathy G62.9 [facility] [id number] [place] [address] 17409- 0010 Apr, Primary insomnia F51.01 and Polyneuropathy G62.9 [facility] [id number] [place] [address] 37393- 0278 Mar, Primary insomnia F51.01 [facility] [id number] [place] [address] 88226- 3011 Mar, [facility] [id number] [place] [address] 20330- 2429 Mar, Polyneuropathy G62.9 [facility] [id number] [place] [address] 46849- 8771 Feb, Primary insomnia F51.01 [facility] [id number] [place] [address] 02921- 6116 Feb, [facility] [id number] [place] [address] 29279- 6688 Feb, [facility] [id number] [place] [address]- 7412 Feb, Polyneuropathy G62.9 [facility] [address] [place] [address]- 2657 Feb, Primary insomnia F51.01 [facility] [address] [place] [address]- 8063 Jan, [facility] [address] [place] [id number] [place] [address], [place] [address]- 1988 Jan, [facility] [address] [place] [address]- 2812 Dec, [facility] [id number] [place] [address], [place] [address]- 9252 Dec, Primary insomnia F51.01 [facility] [id number] [place] [address], [place] [address]- 5844 Dec, Primary insomnia F51.01 [facility] [address] [place] [address]- 0769 Dec, [facility] [address] [place] [address]- 6693 Dec, [facility] [address] [place] [address]- 2127 Dec, [facility] [address] [address]- 0956 Dec, [facility] [address] [address]- 6612 November, Primary insomnia F51.01 and Polyneuropathy G62.9 [facility] [address] [place] [address]- 4645 November, [facility] [address] [address]- 3565 November, Abdominal pain, left lower quadrant R10.32 [facility] [id number] [address]- 7995 November, [facility] [address] [place] [address] 33901- 0545 Oct, [facility] [address] [place] [address] 92530- 5516 Oct, Abdominal pain, left lower quadrant R10.32 ; 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 and Neuropathy G62.9 [facility] [address] [place] [address] 37159- 8017 Oct, [facility] [id number] [place] [address] 21019- 9087 Sep, [facility] [address] [id number] [place] [address] [id number] Sep, [facility] [id number] [place] [address] 29298- 1967 Sep, [facility] [address] [place] [address] 74212- 9035 Aug, [facility] [id number] [place] [address] 06865- 7887 Aug, [facility] [address] [place] [address] 52366- 9113 Aug, Abdominal pain, left lower quadrant R10.32 ; Neuropathy G62.9 and Anxiety F41.9 [facility] [address] [place] [address] Jul, [facility] [address] [address]- 3026 Jul, [facility] [id number] [place] [address] 92594 -7112 Jul, [facility] [address] [place] [address] 10747- 1708 Jul, [facility] [id number] [place] [address] 13758- 3735 Jul, [facility] [address] [facility] [id number] [address]- 1397 Jun, [facility] [address] [facility] [id number] 1493 May, [facility] [address] [id number], [place] [address]- 6626 May, [facility] [address] [facility] [id number] [place] [address] 78943- 9173 Apr, [facility] [address] [facility] [id number] [address]- 9606 Apr, Muscle spasms of both lower extremities M62.838 and Cellulitis, unspecified cellulitis site L03.90 [facility] [address], [place] [address]- 4181 Apr, [facility] [address], [place] [address]- 9391 23 Mar, 2016 Generalized abdominal pain R10.84 [facility] [address] [facility] [id number], [place] [address]- 5051 20 Mar, 2016 [facility] [id number] [address]- 1148 14 Mar, 2016 [facility] [address] [facility] [id number] [address]- 2166 14 Mar, 2015 [facility] [address] [facility] [id number] [address]- 2547 13 Mar, 2015 [facility] [address] [facility] [id number] [address]- 2548 12 Mar, 2015 [facility] [address] [id number] [address]- 2540 09 Mar, 2015 [facility] [address] [id number] [address]- 2547 06 Mar, 2015 [facility] [address], [place] [address]- 8636 17 Feb, 2016 Other specified diseases of anus and rectum K62.89 [facility] [address] [place] [id number] [place] [address] 67465- 0338 Feb, [facility] [address] [place] [address] 78579- 9172 Feb, Dizziness R42 [facility] [address] [id number] [place] [address] 10095- 4192 Feb, [facility] [id number] [place] [address] 74138- 5286 Jan, Polyneuropathy G62.9 [facility] [id number] [place] [address] 78849- 1261 Jan, Other specified diseases of anus and rectum K62.89 [facility] [id number] [place] [address] 44563- 6660 Jan, [facility] [id number] [place] [address] 12641 -9165 Jan, [facility] [address] [place] [address] 57095- 2533 Jan, [facility] [address] [address]- 2433 Jan, Dizziness R42 [facility] [address], [place] [address]- 7969 Dec, [facility] [address], [place] [address]- 8112 Dec, [facility] [id number] [place] [address] 88486- 1987 Dec, [facility] [address] [place] [address] 49159- 9787 Dec, Dizziness R42 [facility] [id number] [place] [address] 83610- 2228 November, [facility] [address] [address]- 5334 Oct, [facility] [id number] [place] [address] 16036- 1047 Oct, [facility] [id number] [place] [address] 28012- 9094 Oct, [facility] [id number] [place] [address] 03339- 0408 Oct, [facility] [id number] [place] [address] 67953- 8065 Sep, [facility] [id number] [place] [address] 38906- 6327 Sep, Primary insomnia F51.01 [facility] [id number] [place] [address] 97051- 9204 Sep, Primary insomnia F51.01 [facility] [id number] [place] [address] 81302- 5514 Sep, [facility] [id number] [place] [address] 23393- 8072 Aug, [facility] [address] [place] [address] 79813- 6010 Aug, [facility] [id number] [place] [address] 76213- 0429 Aug, Primary insomnia F51.01 ; Mood disorder F39 ; Nausea and vomiting, unspecified intactability, vomiting of unspecified type R11.2 and Diarrhea R19.7 [facility] [id number] [place] [address] 97713- 5755 Aug, [facility] [address] [address]- 0652 05 Aug, 2015 Folliculitis L73.9 [facility] [id number] [address]- 3939 Aug, [facility] [address] [place] [address] 97927- 3405 Aug, [facility] [address] [place] [address] 14060- 5313 Jul, Folliculitis L73.9 [facility] [address] [id number] [place] [address] 60976- 3427 Jul, [facility] [address] [place] [address] 38445- 0392 Jun, Folliculitis L73.9 [facility] [address] [id number] [place] [address] 43008- 0936 Jun, [place] [address] [id number] [place] [address] 11920- 6317 May, Polyneuropathy G62.9 [facility] [address] [place] [address] 35858- 6005 May, Other specified diseases of anus and rectum K62.89 [place] [address] [place] [address] 21622- 3542 May, [place] [address] [place] [address] 35212- 9544 May, Primary insomnia F51.01 [facility] [address] [place] [address] 58037- 8755 May, [facility] [id number] [place] [address] 12471- 1710 May, [facility] [address] [place] [address] 83160- 0428 Apr, Other specified diseases of anus and rectum K62.89 ; Chronic fatigue R53.82 ; Urinary tract infection, site not specified N39.0 and Enterococcus as the cause of diseases classified elsewhere B95.2 [place] [address] [id number] [address]- 9780 16 Apr, 2015 [facility] [address] [facility] [id number] [address]- 4410 15 Apr, 2015 [facility] [place] [facility] [address] [facility] [id number] [address]- 2546 14 Apr, 2015 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 [facility] [place] [facility] [address] [facility] [id number] [address] 2546 05 Apr, 2015 [facility] [address] [facility] [id number][place] [address]- 2547 26 Mar, 2014 [facility] [id number] [place] [address] 11637- 2176 23 Mar, 2015 [facility] [address] [address]- 8997 17 Mar, 2015 [facility] [id number] [place] [address] 16996- 254 14 Mar, 2015 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 [facility] [id number] [address]- 7734 12 Mar, 2015 [facility] [id number] [address]- 6310 11 Mar, 2015 [facility] [address], [place] [address]- 1870 11 Mar, 2015 [facility] [place] [facility] [address] [facility] [id number][place] [address] 2542 10 Mar, 2015 [facility] [place] [facility] [address] [facility] [id number][place] [address]- 2546 Feb, [facility] [place] [facility] [address] [facility] [id number] [address]- 254 14 Feb, 2015 [facility] [place] [facility] [id number] [address]- 0766 Feb, [facility] [place] [facility] [address] [facility] [id number][place] [address]- 0445 Jan, [facility] [address] [facility] [id number][place] [address]- 7098 Jan, Nausea 787.02 and Neuropathy 355.9 [facility] [address] [address] 2543 Jan, [facility] [id number] [place] [address] 14150 2540 Jan, [facility] [address] [facility] [id number][place] [address]- 6177 Jan, [facility] [address] [id number][place] [id number] Jan, Dental examination V72.2 [facility] [address], [place] [address]- 0439 Jan, [facility] [id number] [place] [address] 89343- 7036 Dec, [facility] [address] [address]- 5089 Dec, [facility] [address] 2657 Dec, Neuropathy 355.9 [facility] [address] [address]- 3841 November, [facility] [address] [facility] [id number][place] [address]- 2544 November, [facility] [place] [facility] [address] [facility] [id number]- 0798 November, [facility] [address] [facility] [id number], [place] [address]- 8625 Oct, [facility] [place] [facility] [address], [place] [address]- 4262 Oct, [facility] [id number] [place] [address]- 1001 Sep, 2014 [facility] [place] [facility] [address] [id number] [place] [address]- 5544 Sep, 2014 [facility] [place] [facility] [address] [id number] [place] [address]- 8876 Sep, 2014 [facility] [place] [facility] [address] [id number] [place] [address]- 5728 Sep, 2014 [facility] [place] [facility] [address] [id number] [place] [address] Sep, [facility] [place] [facility] [address] [id number] [place] [address] Sep, [facility] [place] [facility] [address] [facility] [id number] [place] [address] Sep, [facility] [place] [facility] [address] [facility] [id number] [place] [address] Sep, 2014 [facility] [place] [facility] [address] [facility] [id number] [place] [address] Aug, 2014 [facility] [place] [facility] [address] [facility] [id number] [place] [address] Aug, 2014 [facility] [place] [facility] [address] [facility] [id number] [place] [address] Aug, 2014 [facility] [place] [facility] [address] [facility] [id number] [place] [address] Aug, 2014 [facility] [place] [facility] [address] [facility] [id number] [place] [address] Aug, 2014 [facility] [place] [facility] [address] [id number] [place] [address] Aug, 2014 [facility] [place] [facility] [address] [facility] [id number] [place] [address] Aug, 2014 [facility] [place] [facility] [address] [facility] [id number] [place] [address] Aug, [facility] [place] [facility] [address] [id number] [place] [address] Jul, [facility] [place] [facility] [address] [id number] [place] [address] Jul, [facility] [place] [facility] [address] [id number] [id number] [address] Jun, [facility] [place] [facility] [address] [id number] [place] [address] Jun, [facility] [place] [facility] [address] [id number] [place] [address] Jun, [facility] [place] [facility] [address] [id number] [place] [address] Jun, [facility] [place] [facility] [address] [id number] [place] [address] Jun, [facility] [place] [facility] [address] [id number] [place] [address] Jun, [facility] [place] [facility] [address] [id number] [place] [address]- [address] Jun, [facility] [place] [facility] [address] [id number] [place] [address] Jun, [facility] [place] [facility] [address] [id number] [place] [address] Jun, [facility] [place] [facility] [address] [id number] [place] [address] Jun, [facility] [place] [facility] [address] [id number] [place] [address]- [address] Jun, [facility] [place] [facility] [address] [id number] [place] [address] May, [facility] [place] [facility] [address] [id number] [place] [address] May, [facility] [place] [facility] [address] [id number] [place] [address] May, [facility] [place] [facility] [address] [id number] [place] [address] May, [facility] [place] [facility] [address] [id number] [place] [address] May, [facility] [place] [facility] [address] [id number] [place] [address] May, [facility] [place] [facility] [address] [id number] [place] [address]- [address] May, [facility] [place] [facility] [address] [id number] [place] [address]- [address] May, [facility] [place] [facility] [address] [id number] [place] [address] May, [facility] [place] [facility] [address] [id number] [place] [address] Apr, [facility] [place] [facility] [address] [id number] [place] [address] Apr, [facility] [place] [facility] [address] [id number] [place] [address] Apr, [facility] [place] [facility] [address] [id number] [place] [address] Apr, [facility] [place] [facility] [address] [id number] [place] [address] Apr, [facility] [place] [facility] [address] [id number] [place] [address] Mar, [facility] [place] [facility] [address] [id number] [place] [address] Mar, [facility] [place] [facility] [address] [id number] [place] [address] Feb, [facility] [place] [facility] [address] [id number] [place] [address] Feb, [facility] [place] [facility] [address] [id number] [place] [address] Feb, [facility] [place] [facility] [address] [id number] [place] [address] Feb, [facility] [place] [facility] [address] [id number] [place] [address] Feb, [facility] [place] [facility] [address] [id number] [place] [address] Feb, [facility] [place] [facility] [address] [id number] [place] [address] Jan, [facility] [place] [facility] [address] [id number] [place] [address] Jan, [facility] [place] [facility] [address] [id number] [place] [address] Jan, [facility] [place] [facility] [address] [id number] [place] [address] Jan, [facility] [place] [facility] [address] [id number] [place] [address] Jan, [facility] [place] [facility] [address] [id number] [place] [address] Jan, [facility] [place] [facility] [address] [id number] [place] [address] Jan, [facility] [place] [facility] [address] [id number] [place] [address] 9[address] Jan, [facility] [place] [facility] [address] [id number] [place] [address] Jan, [facility] [place] [facility] [address] [id number] [place] [address] Jan, [facility] [place] [facility] [address] [id number] [place] [address] 47[address] Jan, [facility] [place] [facility] [address] [id number] [place] [address] Dec, [facility] [place] [facility] [address] [id number] [place] [address] Dec, [facility] [place] [facility] [address] [id number] [place] [address] Dec, [facility] [place] [facility] [address] [id number] [place] [address] Dec, [facility] [place] [facility] [address] [id number] [place] [address] Dec, [facility] [place] [facility] [address] [id number] [place] [address] 9[address] Dec, [facility] [place] [facility] [address] [id number] [place] [address] November, [facility] [place] [facility] [address] [id number] [place] [address]797 November, [facility] [place] [facility] [address] [id number] [place] [address] 36[address] November, [facility] [place] [facility] [address] [id number] [place] [address] November, [facility] [place] [facility] [address] [id number] [place] [address]176 November, [facility] [place] [facility] [address] [id number] [place] [address] November, [facility] [place] [facility] [address] [id number] [place] [address] Oct, [facility] [place] [facility] [address] [id number] [place] [address] Oct, [facility] [place] [facility] [address] [id number] [place] [address] Oct, [facility] [place] [facility] [address] [id number] [place] [address] 28[address] Oct, [facility] [place] [facility] [address] [id number] [place] [address]68 17 Sep, 2013 [facility] [address] [id number] [place] [address] Sep, [facility] [address] [id number] [place] [address] Sep, [facility] [address] [id number] [place] [address] Sep, [facility] [address] [id number] [place] [address] Sep, [facility] [address] [id number] [place] [address] 38[address] Aug, [facility] [address] [id number] [place] [address] Aug, [facility] [address] [id number] [place] [address]49 Aug, [facility] [address] [id number] [place] [address] Aug, [facility] [address] [id number] [place] [address] Aug, [facility] [place] [place] [id number] May, [facility] [address] [id number] [place] [address] May, [facility] [address] [id number] [place] [address] 1324 May, [facility] [address] [id number] [place] [address] 9540 May, [facility] [address] [id number] [place] [address] 2834 May, [facility] [address] [id number] [place] [address] 59[address] Apr, [facility] [address] [id number] [place] [address] 0133 Apr, [facility] [place] [facility] [address] [id number] [place] [address] 1976 Apr, [facility] [place] [facility] [address] [id number] [place] [address] 2821 Apr, [facility] [place] [facility] [address] [id number] [place] [address] 2361 Apr, [facility] [address] [id number] [place] [address] 2501 Apr, [facility] [place] [facility] [address] [id number] [place] [address]- 8006 Apr, [facility] [address] [id number] [place] [address]- 5690 Mar, [facility] [place] [facility] [address] [id number] [place] [address]- 0967 Mar, [facility] [place] [facility] [address] [id number] [place] [address]- 5719 24 Mar, 2013 [facility] [place] [facility] [address] [id number] [place] [address]- 5612 16 Mar, 2013 [facility] [place] [facility] [address] [id number] [place] [address]- 2870 12 Mar, 2013 [facility] [place] [facility] [address] [id number] [address] 06 Mar, 2013 [facility] [place] [facility] [address] [id number] [place] [address]- 8196 Feb, [facility] [place] [facility] [address] [id number] [place] [address]- 7894 Feb, [facility] [place] [facility] [address] [id number] [place] [address]- 4849 Feb, [facility] [place] [facility] [address] [id number] [place] [address]- 2185 Feb, [facility] [place] [facility] [address] [id number] [place] [address]- 3156 Feb, [facility] [place] [facility] [address] [id number] [place] [address]- 0331 Feb, [facility] [place] [facility] [address] [id number] [place] [address]- 8741 Jan, [facility] [place] [facility] [address] [id number] [place] [address]- 5841 Dec, [facility] [place] [facility] [address] [id number] [place] [address]- 2025 Dec, [facility] [place] [facility] [address] [id number] [place] [address]- 3612 Dec, [facility] [place] [facility] [address] [id number] [place] [address]- 9515 Dec, [facility] [place] [facility] [address] [id number] [place] [address]- 1021 Dec, [facility] [place] [facility] [address] [id number] [place] [address]- 3667 Dec, [facility] [place] [facility] [address] [id number] [place] [address]- 4604 Dec, [facility] [place] [facility] [address] [id number] [place] [address]- 4016 Dec, [facility] [place] [facility] [address] [id number] [place] [address]- 7720 Dec, [facility] [place] [facility] [address] [id number] [place] [address]- 2752 November, [facility] [place] [facility] [address] [id number] [place] [address]- 2734 November, [facility] [place] [facility] [address] [id number] [place] [address]- 0588 Oct, [facility] [place] [facility] [address] [id number] [address] Sep, [facility] [id number] [address] Sep, [facility] [id number] [address] Sep, [facility] [id number] [address]562 Sep, [facility] [id number] [address] 7066 Aug, [facility] [id number] [address]- 113[address] Aug, [facility] [id number] [address] Jul, [facility] [id number], [place] [address] Jul, [facility] [id number] [address] Jul, [facility] [id number], [place] [address]- 1616 Sep, [facility] [address] [address]- [address] Sep, [facility] [id number], [place] [address] Sep, IMMUNIZATIONS No Known Immunizations SOCIAL HISTORY Never Assessed REASON FOR VISIT Refill request PLAN OF CARE VITAL SIGNS MEDICATIONS Medication Instructions Dosage Frequency Start Date End Date Duration Status Lyrica 150 MG Orally 3 times a day 1 capsule 8h 08 Feb, 2017 Active Oxycodone HCl 30 MG Orally 2 times a day 1 tablet as needed 12h Jul, Active Percocet 10-325 MG Orally every 4 hrs 1 tablet 4h Jul, Active RESULTS No Results PROCEDURES No Known [...]
--- OUTSIDE RECORDS SUMMARY | 2018-06-09 17:33 | XMS REPORT ---
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 321376254 Problem Primary insomnia F51.01 Active 283837799 Problem Chronic fatigue, unspecified R53.82 Active 706910602 Problem Polyneuropathy G62.9 Active 31495115 Problem Anxiety F41.9 Active 65673680 Problem Hypertension, benign I10 Active 91147354 Problem Abdominal pain, left lower quadrant R10.32 Active 675388951 Problem Neuropathy G62.9 Active 989662643 Problem Mood disorder F39 Active 10469307 ALLERGIES No Information SOCIAL HISTORY Never Assessed PLAN OF CARE VITAL SIGNS MEDICATIONS Medication Instructions Dosage Frequency Start Date End Date Duration Status Restoril 30 MG Orally Once a day 1 capsule at bedtime as needed 24h Oct 28 days Active RESULTS No Results PROCEDURES [...]
--- OUTSIDE RECORDS SUMMARY | 2018-06-09 17:34 | XMS REPORT ---
Author Author LINDA BENTLEY [facility] Address [address] [place] [address] Care Team Providers Care Floor Cashier Name Role Phone LINDA BENTLEY Unavailable PROBLEMS Type Condition ICD9-CM Code ZYF48-NP Code Onset Dates Condition Status SNOMED Code Problem Abdominal pain, left lower quadrant R10.32 Active 053942556 Problem Mood disorder F39 Active 82110451 Problem Hypertension, benign I10 Active 73559976 Problem Chronic pain syndrome G89.4 Active 121809237 Problem Attention to urostomy Z43.6 Active 603232058 Problem Anxiety F41.9 Active 15800603 Problem Neuropathy G62.9 Active 540132022 Problem Malignant neoplasm of colon, unspecified part of colon C18.9 Active 038665014 Problem Polyneuropathy G62.9 Active 57044839 Problem Incontinence of feces, unspecified fecal incontinence type R15.9 Active 85285485 Problem Chronic fatigue, unspecified R53.82 Active 651719577 Problem Hydronephrosis with ureteral stricture, not elsewhere classified N13.1 Active 84253298 Problem Primary insomnia F51.01 Active 198734254 Problem 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 773674364 ALLERGIES No Information ENCOUNTERS Encounter Location Date Diagnosis [facility] [address], [place] [address] Dec, [facility] [address], [place] [address] November, Polyneuropathy G62.9 [facility] [address], [place] [address] November, Medicare annual wellness visit, initial Z00.00 [facility] [address], [place] [address] November, Mood disorder F39 [facility] [id number] [place] [address] 39144- 3184 Oct, Polyneuropathy G62.9 [facility] [address] [address]- [address] Oct, [facility] [address] [address]- [address] Oct, [facility] [address] [address]14- 0894 Oct, Mood disorder F39 ; Attention to urostomy Z43.6 ; Chronic pain syndrome G89.4 and Polyneuropathy G62.9 [facility] [address] [address]- [address]338 Sep, Polyneuropathy G62.9 [facility] [address] [address]- 1498 Sep, [facility] [address] [address]- 5980 Sep, Polyneuropathy G62.9 [facility] [id number] [place] [address] 06582- 0187 Aug, Polyneuropathy G62.9 [facility] [id number] [place] [address] 36138- 2776 Aug, Malignant neoplasm of colon, unspecified part of colon C18.9 and Polyneuropathy G62.9 [facility] [id number] [place] [address] 42729- 3542 Aug, Neuropathy G62.9 and Polyneuropathy G62.9 [facility] [address] [address]- [address] Jul, Encounter for drug screening Z02.83 [facility] [id number] [place] [address] 03631- 6852 Jul, Polyneuropathy G62.9 [facility] [address] [place] [address]- 9[address] Jul, [facility] [id number] [place] [address] 20322- 4984 Jul, Neuropathy G62.9 and Anxiety F41.9 [facility] [id number] [place] [address] 73440- 4326 Jul, [facility] [id number] [place] [address] 49465- 6791 Jul, [facility] [id number] [place] [address] 84571- 6352 Jul, [facility] [address] [address]- 3998 Jul, Polyneuropathy G62.9 [facility] [id number] [place] [address] 82424- 3735 Jul, [facility] [id number] [place] [address] 07392- 4866 Jun, [facility] [id number] [place] [address] 46719- 7057 Jun, [facility] [id number] [place] [address] 85799- 7066 Jun, [facility] [id number] [place] [address] 07 Jun, 2017 Encounter for dental examination Z01.20 [facility] [id number] [place] [address] 02211- 7936 04 Jun, 2017 Polyneuropathy G62.9 and Anxiety F41.9 [facility] [id number] [place] [address] 01308- 4037 Jun, [facility] [id number] [place] [address] May, Dental examination Z01.20 [facility] [id number] [place] [address] 45997- 1604 May, Polyneuropathy G62.9 [facility] [id number] [place] [address] 23309- 3619 Apr, Polyneuropathy G62.9 [facility] [id number] [place] [address] 62657- 2376 Apr, Polyneuropathy G62.9 [facility] [id number] [place] [address] 33489- 4607 Apr, Hypertension, benign I10 ; Polyneuropathy G62.9 and Anxiety F41.9 [facility] [address] 8[address]- 2940 Apr, Primary insomnia F51.01 and Polyneuropathy G62.9 [facility] [id number] [place] [address] 17012- 7903 Apr, Primary insomnia F51.01 and Polyneuropathy G62.9 [facility] [id number] [place] [address] 45494- 5438 Mar, Primary insomnia F51.01 [facility] [id number] [place] [address] 71247- 6114 Mar, [facility] [id number] [place] [address] 27793- 3288 Mar, Polyneuropathy G62.9 [facility] [id number] [place] [address] 38807- 9302 Feb, Primary insomnia F51.01 [facility] [id number] [place] [address] 20434- 2489 Feb, [facility] [id number] [place] [address] 08514- 3783 Feb, [facility] [id number] [place] [address] 57845- 7852 Feb, Polyneuropathy G62.9 [facility] [address], [place] [address] 9[address] Feb, Primary insomnia F51.01 [facility] [id number] [place] [address], [place] [address]- 3[address] Jan, [facility] [id number], [place] [address]- 8148 Jan, [facility] [id number] [place] [address] 43721- 4204 Dec, [facility] [id number] [place] [address] 04331- 8471 Dec, Primary insomnia F51.01 [facility] [id number] [place] [address] 36040- 6047 Dec, Primary insomnia F51.01 [facility] [id number] [place] [address] 37202- 0656 Dec, [facility] [id number] [place] [address] 81866- 3436 Dec, [facility] [id number] [place] [address] 32042- 9483 Dec, [facility] [id number] [place] [address] 56156- 8593 Dec, [facility] [id number] [place] [address] 99750- 5822 November, Primary insomnia F51.01 and Polyneuropathy G62.9 [facility] [address], [place] [address]- 6738 November, [facility] [id number] [place] [address] 48217- 2460 November, Abdominal pain, left lower quadrant R10.32 [facility] [address], [place] [address]- 5792 November, [facility] [id number] [place] [address] 58523- 3268 Oct, [facility] [id number] [place] [address] 34892- 9467 Oct, Abdominal pain, left lower quadrant R10.32 ; 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 and Neuropathy G62.9 [facility] [id number] [place] [address] 46056- 7632 Oct, [facility] [id number] [place] [address] 41695- 4345 Sep, [facility] [id number] [place] [address] [id number] Sep, [facility] [id number] [place] [address] 35588- 9494 Sep, [facility] [id number] [place] [address] 33655- 4812 Aug, [facility] [id number] [place] [address] 35909- 0465 Aug, [facility] [id number] [place] [address] 34439- 2264 Aug, Abdominal pain, left lower quadrant R10.32 ; Neuropathy G62.9 and Anxiety F41.9 [facility] [address] [place] [address] Jul, [facility] [id number] [place] [address] 09360- 5852 Jul, [facility] [id number] [place] [address] 84388 -8780 Jul, [facility] [id number] [place] [address] 17817- 9030 Jul, [facility] [id number] [place] [address] 22149- 7086 Jul, [facility] [id number] [place] [address] 04933- 5369 Jun, [facility] [address], [place] [address]- 3172 May, [facility] [id number] [place] [address] 46614- 3214 May, [facility] [id number] [place] [address] 21926- 5467 Apr, [facility] [id number] [place] [address] 12510- 7088 Apr, Muscle spasms of both lower extremities M62.838 and Cellulitis, unspecified cellulitis site L03.90 [facility] [id number] [place] [address] 52815- 0568 Apr, [facility] [id number] [place] [address] 72106- 5799 23 Mar, 2016 Generalized abdominal pain R10.84 [facility] [id number] [place] [address] 32785- 4047 20 Mar, 2016 [facility] [id number] [place] [address] 13861- 4710 14 Mar, 2016 [facility] [id number] [place] [address] 47932- 7372 14 Mar, 2016 [facility] [id number] [place] [address] 13214- 5978 13 Mar, 2016 [facility] [id number] [place] [address] 10016- 8565 12 Mar, 2016 [facility] [address], [place] [address]- 7169 09 Mar, 2016 [facility] [id number] [place] [address] 52210- 0015 06 Mar, 2016 [facility] [address], [place] [address]- 9324 Feb, Other specified diseases of anus and rectum K62.89 [facility] [address] [facility] [id number] [place] [address]- 8488 Feb, [facility] [address] [facility] [id number] [place] [address], [place] [address]- 7108 Feb, Dizziness R42 [facility] [address] [facility] [id number] [place] [address]- 8303 Feb, [facility] [address] [facility] [id number] [place] [address], [place] [address]- 0904 Jan, Polyneuropathy G62.9 [facility] [address] [facility] [id number] [place] [address], [place] [address]- 9947 Jan, Other specified diseases of anus and rectum K62.89 [facility] [address] [facility] [id number] [place] [address]- 2100 Jan, [facility] [address] [facility] [id number] [place] [address] 76646 -6811 Jan, [facility] [address] [facility] [id number] [place] [address]- 3425 Jan, [facility] [id number] [place] [address], [place] [address]- 0396 Jan, Dizziness R42 [facility] [address], [place] [address]- 6010 Dec, [facility] [address], [place] [address]- 0832 Dec, [facility] [address] [facility] [id number], [place] [address]- 5538 Dec, [facility] [id number] [place] [address], [place] [address]- 1182 Dec, Dizziness R42 [facility] [address] [facility] [id number], [place] [address]- 0844 November, [facility] [id number] [place] [address] 30318- 0943 Oct, [facility] [id number] [place] [address] 84351- 9572 Oct, [facility] [id number] [place] [address] 92021- 2091 Oct, [facility] [id number] [place] [address] 77832- 3547 Oct, [facility] [id number] [place] [address] 00390- 2866 Sep, [facility] [id number] [place] [address] 60734- 1627 Sep, Primary insomnia F51.01 [facility] [id number] [place] [address] 34519- 7691 Sep, Primary insomnia F51.01 [facility] [id number] [place] [address] 94686- 3840 Sep, [facility] [id number] [place] [address] 19158- 0255 Aug, [facility] [id number] [place] [address] 05486- 2115 Aug, [facility] [id number] [place] [address] 55265- 4079 Aug, Primary insomnia F51.01 ; Mood disorder F39 ; Nausea and vomiting, unspecified intactability, vomiting of unspecified type R11.2 and Diarrhea R19.7 [facility] [id number] [place] [address] 75736- 0946 Aug, [facility] [id number] [place] [address] 43475- 0992 05 Aug, 2015 Folliculitis L73.9 [facility] [id number] [place] [address] 04555- 0604 Aug, [facility] [id number] [address]- 9026 Aug, [facility] [id number] [place] [address] 64444- 0128 Jul, Folliculitis L73.9 [facility] [address], [place] [address]- 2302 Jul, [facility] [id number] [place] [address] 93163- 2727 Jun, Folliculitis L73.9 [facility] [id number] [place] [address] 34019- 7037 Jun, [facility] [id number] [place] [address] 70892- 0924 May, Polyneuropathy G62.9 [facility] [id number] [place] [address] 73202- 0017 May, Other specified diseases of anus and rectum K62.89 [facility] [id number] [place] [address] 60655- 9786 May, [facility] [id number] [place] [address] 54248- 0314 May, Primary insomnia F51.01 [facility] [address], [place] [address]- 8221 May, [facility] [id number] [place] [address] 71448- 2815 May, [facility] [id number] [place] [address] 19774- 3382 Apr, Other specified diseases of anus and rectum K62.89 ; Chronic fatigue R53.82 ; Urinary tract infection, site not specified N39.0 and Enterococcus as the cause of diseases classified elsewhere B95.2 [facility] [address], [place] [address]- 5758 Apr, [facility] [id number] [address]- 7421 15 Apr, 2015 [facility] [address] [facility] [id number], [place] [address] 2546 14 Apr, 2015 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 [facility] [place] [facility] [address] [id number], [place] [address] 2546 05 Apr, 2015 [facility] [place] [facility] [address] [facility] [id number], [place] [address] 2546 26 Mar, 2014 [facility] [place] [facility] [address] [facility] [id number], [place] [address] 2546 23 Mar, 2014 [facility] [place] [facility] [address] [facility] [id number] [place] [address] 18352 2546 17 Mar, 2015 [facility] [place] [facility] [address] [facility] [id number], [place] [address] 2548 14 Mar, 2015 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 [facility] [place] [facility] [id number] [address]- 6457 12 Mar, 2015 [facility] [place] [facility] [address] [facility] [id number], [place] [address] 2546 11 Mar, 2015 [facility] [place] [facility] [id number] [address] 2546 11 Mar, 2015 [facility] [place] [facility] [address] [facility] [id number], [place] [address] 2542 10 Mar, 2015 [facility] [place] [facility] [address] [facility] [id number], [place] [address] 2541 Feb, [facility] [place] [facility] [address] [facility] [id number], [place] [address] 2546 Feb, [facility] [place] [facility] [address] [facility] [id number], [place] [address] 2546 Feb, [facility] [place] [facility] [address] [facility] [id number], [place] [address] 2540 30 Jan, 2015 [facility] [place] [facility] [address] [facility] [id number], [place] [address]- 6194 Jan, Nausea 787.02 and Neuropathy 355.9 [facility] [id number] [place] [address] 59288- 1775 Jan, [facility] [id number] [address]- 2546 Jan, [facility] [id number] [place] [address] 41780- 4313 Jan, [facility] [address] [id number][place] [id number] Jan, Dental examination V72.2 [facility] [id number] [place] [address] 23248- 3143 Jan, [facility] [id number] [place] [address] 70967- 1842 Dec, [facility] [id number] [place] [address] 20302- 8604 Dec, [facility] [id number] [place] [address] 45049- 1646 Dec, Neuropathy 355.9 [facility] [id number] [place] [address] 80493- 2366 November, [facility] [address], [place] [address]- 1183 November, [facility] [address], [place] [address]- 6964 November, [facility] [address], [place] [address]- 1729 Oct, [facility] [id number] [address]- 3167 Oct, [facility] [address], [place] [address]- 5533 Sep, [facility] [id number], [place] [address]- 0500 Sep, [facility] [place] [facility] [address] [id number] [place] [address]- 0937 Sep, [facility] [place] [facility] [address] [facility] [id number] [place] [address]- 1036 Sep, [facility] [place] [facility] [address] [facility] [id number] [place] [address]- 8505 Sep, [facility] [place] [facility] [address] [facility] [id number] [place] [address]- 9871 Sep, [facility] [place] [facility] [address] [facility] [id number] [place] [address]- 7638 Sep, [facility] [place] [facility] [address] [facility] [id number] [place] [address]- 8872 Sep, [facility] [place] [facility] [id number] [place] [address]- 6815 Aug, 2014 [facility] [place] [facility] [address] [facility] [id number] [place] [address] Aug, 2014 [facility] [place] [facility] [address] [id number] [place] [address] Aug, 2014 [facility] [place] [facility] [address] [id number] [place] [address] Aug, 2014 [facility] [place] [facility] [address] [id number] [place] [address] Aug, 2014 [facility] [place] [facility] [address] [facility] [id number], [place] [address] Aug, 2014 [facility] [place] [facility] [address] [facility] [id number] [id number] [address] Aug, 2014 [facility] [place] [facility] [address] [facility] [id number] [address] Aug, 2014 [facility] [place] [facility] [address] [id number] [place] [address] Jul, [facility] [place] [facility] [address] [id number] [place] [address] Jul, [facility] [place] [facility] [address] [id number] [place] [address] Jun, [facility] [place] [facility] [address] [id number] [place] [address] Jun, [facility] [place] [facility] [address] [id number] [place] [address] Jun, [facility] [place] [facility] [address] [id number] [place] [address] Jun, [facility] [place] [facility] [address] [id number] [place] [address] Jun, [facility] [place] [facility] [address] [id number] [place] [address] Jun, [facility] [place] [facility] [address] [id number] [place] [address] Jun, [facility] [place] [facility] [address] [id number] [place] [address] Jun, [facility] [place] [facility] [address] [id number] [place] [address] Jun, [facility] [place] [facility] [address] [id number] [place] [address] Jun, [facility] [place] [facility] [address] [id number], [place] [address] Jun, [facility] [place] [facility] [address] [id number] [place] [address] May, [facility] [place] [facility] [address] [id number] [place] [address] May, [facility] [place] [facility] [address] [id number] [place] [address] May, [facility] [place] [facility] [address] [id number], [place] [address] May, [facility] [place] [facility] [address] [id number] [place] [address] May, [facility] [place] [facility] [address] [id number] [place] [address]49 May, [facility] [place] [facility] [address] [id number] [place] [address] 1293 May, [facility] [place] [facility] [address] [id number] [place] [address] May, [facility] [place] [facility] [address] [id number] [place] [address] May, [facility] [place] [facility] [address] [id number] [place] [address] Apr, [facility] [place] [facility] [address] [id number] [place] [address] Apr, [facility] [place] [facility] [address] [id number] [place] [address] 9[address] Apr, [facility] [place] [facility] [address] [id number] [place] [address] 1640 Apr, [facility] [place] [facility] [address] [facility] [id number] [place] [address] Apr, [facility] [facility] [address] [id number] [place] [address] Mar, [facility] [place] [facility] [address] [id number] [place] [address] Mar, [facility] [place] [facility] [address] [id number] [place] [address] Feb, [facility] [place] [facility] [address] [id number] [place] [address] Feb, [facility] [place] [facility] [address] [facility] [id number] [place] [address] Feb, [facility] [place] [facility] [address] [id number] [place] [address] Feb, [facility] [place] [facility] [address] [id number] [facility] [place] [address] Feb, [facility] [place] [facility] [address] [id number] [place] [address] Feb, [facility] [place] [facility] [address] [id number] [place] [address] Jan, [facility] [place] [facility] [address] [id number] [place] [address] Jan, [facility] [place] [facility] [address] [id number] [place] [address] Jan, [facility] [place] [facility] [address] [id number] [place] [address] Jan, [facility] [place] [facility] [address] [id number] [place] [address] Jan, [facility] [place] [facility] [address] [id number] [place] [address] Jan, [facility] [place] [facility] [address] [id number] [place] [address] Jan, [facility] [place] [facility] [address] [id number] [place] [address] Jan, [facility] [place] [facility] [address] [id number] [place] [address] Jan, [facility] [place] [facility] [address] [id number] [place] [address] 47[address] Jan, [facility] [place] [facility] [address] [id number] [place] [address] 24[address] Jan, [facility] [place] [facility] [address] [id number] [place] [address]- [address] Dec, [facility] [place] [facility] [address] [id number] [place] [address] Dec, [facility] [place] [facility] [address] [id number] [place] [address] Dec, [facility] [place] [facility] [address] [id number] [place] [address] Dec, [facility] [place] [facility] [address] [id number] [place] [address]- [address] Dec, [facility] [place] [facility] [address] [id number] [place] [address]269 Dec, [facility] [place] [facility] [address] [id number] [place] [address] November, [facility] [place] [facility] [address] [id number] [place] [address] November, [facility] [place] [address] [id number] [place] [address] November, [facility] [place] [facility] [address] [id number] [place] [address] November, [facility] [address] [id number] [place] [address]758 November, [facility] [address] [id number] [place] [address] November, [facility] [place] [facility] [address] [id number] [place] [address]135 Oct, [facility] [place] [facility] [address] [id number] [place] [address] 56[address] Oct, [facility] [address] [id number] [place] [address]16 Oct, [facility] [place] [facility] [address] [id number] [place] [address] Oct, [facility] [address] [id number] [place] [address] 9752 Sep, [facility] [place] [address] [id number] [place] [address] 1310 Sep, [facility] [address] [id number] [place] [address] Sep, [facility] [address] [id number] [place] [address] Sep, [facility] [address] [id number] [place] [address] 7712 Sep, [facility] [address] [id number] [place] [address] Aug, [facility] [address] [id number] [place] [address] 2948 Aug, [facility] [address] [id number] [place] [address] Aug, [facility] [address] [id number] [place] [address] 7760 Aug, [facility] [address] [facility] [id number] [place] [address] Aug, [facility] [address] [place] [id number] May, [facility] [address] [id number] [place] [address] May, [facility] [address] [id number] [place] [address] 8521 May, [facility] [address] [id number], [place] [address] May, [facility] [address] [id number] [place] [address]32 May, [facility] [address] [id number] [place] [address] Apr, [facility] [address] [id number] [place] [address] 7227 Apr, [facility] [address] [id number] [place] [address]- 5061 Apr, [facility] [place] [facility] [address] [id number] [place] [address]- 6816 Apr, [facility] [address] [id number] [place] [address] 2546 Apr, [facility] [address] [id number] [place] [address]- 6636 Apr, [facility] [facility] [address] [id number] [place] [address]- 8587 Apr, [facility] [address] [id number] [place] [address]- [address]23 28 Mar, 2013 [facility] [facility] [address] [id number] [place] [address]- [address] Mar, [facility] [place] [facility] [address] [id number] [place] [address]- [address]65 24 Mar, 2013 [facility] [address] [id number] [place] [address]- [address]014 16 Mar, 2013 [facility] [address] [id number] [place] [address]- 9084 12 Mar, 2013 [facility] [address] [id number] [place] [address]- 9228 Mar, [facility] [address] [id number] [place] [address] 1886 Feb, [facility] [address] [id number] [place] [address] 2541 Feb, [facility] [address] [id number] [place] [address] 2544 Feb, [facility] [address] [id number] [place] [address] 2547 Feb, [facility] [address] [id number] [place] [address]- 2503 Feb, [facility] [address] [id number] [place] [address]- 3851 Feb, [facility] [address] [id number] [place] [address]- 3865 Jan, [facility] [address] [id number] [place] [address]- 6951 Dec, [facility] [address] [id number] [place] [address]- 9894 Dec, [facility] [address] [id number] [place] [address]- 6600 Dec, [facility] [address] [id number] [place] [address]- 8601 Dec, [facility] [address] [id number] [place] [address]- 9297 Dec, [facility] [address] [id number], [place] [address]- 9528 Dec, [facility] [address] [id number] [place] [address]- 3125 Dec, [facility] [address] [id number] [place] [address]- 9822 Dec, [facility] [address] [id number], [place] [address]- [address]406 Dec, [facility] [address] [id number], [place] [address]- 8012 November, [facility] [address] [id number] [place] [address]- 9324 November, [facility] [address] [id number], [place] [address]- 8744 Oct, [facility] [address] [id number] [place] [address]- 5893 Sep, [facility] [id number], [place] [address] 20 Sep, 2012 [facility] [id number], [place] [address] 15 Sep, 2012 [facility] [id number], [place] [address]41 11 Sep, 2012 [facility] [id number], [place] [address] Aug, [facility] [id number], [place] [address]- [address]76 Aug, [facility] [id number] [place] [address] Jul, [facility] [address] [id number] [address] Jul, [facility] [id number], [place] [address]- 44[address] Jul, [facility] [id number], [place] [address]- 5124 Sep, [facility] [id number], [place] [address]- 2638 17 Sep, 2011 [facility] [id number], [place] [address]- [address]170 10 Sep, 2011 IMMUNIZATIONS No Known Immunizations SOCIAL HISTORY Never Assessed REASON FOR VISIT PLAN OF CARE VITAL SIGNS MEDICATIONS Medication Instructions Dosage Frequency Start Date End Date Duration Status Lisinopril 10 mg Orally Once a day 1 tablet 24h Jun, 30 day(s) Active RESULTS No Results PROCEDURES No Known [...]
--- OUTSIDE RECORDS SUMMARY | 2018-06-09 17:35 | XMS REPORT ---
Author Author LINDA BENTLEY [facility] Address [address] [place] [address] Care Team Providers Care Judicial Law Clerk Name Role Phone LINDA BENTLEY Unavailable PROBLEMS Type Condition ICD9-CM Code [id number] Code Onset Dates Condition Status SNOMED Code Problem Abdominal pain, left lower quadrant R10.32 Active 936211567 Problem Mood disorder F39 Active 87886607 Problem Hypertension, benign I10 Active 75883881 Problem Chronic pain syndrome G89.4 Active 692264558 Problem Attention to urostomy Z43.6 Active 720906151 Problem Anxiety F41.9 Active 86527653 Problem Neuropathy G62.9 Active 676906255 Problem Malignant neoplasm of colon, unspecified part of colon C18.9 Active 323540819 Problem Polyneuropathy G62.9 Active 07387285 Problem Incontinence of feces, unspecified fecal incontinence type R15.9 Active 12615371 Problem Chronic fatigue, unspecified R53.82 Active 742967676 Problem Hydronephrosis with ureteral stricture, not elsewhere classified N13.1 Active 98712629 Problem Primary insomnia F51.01 Active 956173662 Problem 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 492868210 ALLERGIES No Information ENCOUNTERS Encounter Location Date Diagnosis [facility] [address], [place] [address] Dec, [facility] [address], [place] [address] November, Polyneuropathy G62.9 [facility] [address], [place] [address] November, Medicare annual wellness visit, initial Z00.00 [facility] [address], [place] [address] November, Mood disorder F39 [facility] [id number] [place] [address] 56018- 4915 Oct, Polyneuropathy G62.9 [facility] [address] [address] Oct, [facility] [address] [address]- [address] Oct, [facility] [address] [address]- 7036 Oct, Mood disorder F39 ; Attention to urostomy Z43.6 ; Chronic pain syndrome G89.4 and Polyneuropathy G62.9 [facility] [address] [address]- 4138 Sep, Polyneuropathy G62.9 [facility] [address] [address]47- 5421 Sep, [facility] [address] 60[address]- 1326 Sep, Polyneuropathy G62.9 [facility] [id number] [place] [address] 25339- 9657 Aug, Polyneuropathy G62.9 [facility] [id number] [place] [address] 87923- 1587 Aug, Malignant neoplasm of colon, unspecified part of colon C18.9 and Polyneuropathy G62.9 [facility] [id number] [place] [address] 60860- 1182 Aug, Neuropathy G62.9 and Polyneuropathy G62.9 [facility] [address] [address]- 2200 Jul, Encounter for drug screening Z02.83 [facility] [id number] [place] [address] 37536- 7316 Jul, Polyneuropathy G62.9 [facility] [address] [place] [address]- 4668 Jul, [facility] [id number] [place] [address] 79652- 7469 Jul, Neuropathy G62.9 and Anxiety F41.9 [facility] [id number] [place] [address] 25179- 6836 Jul, [facility] [id number] [place] [address] 38564- 8151 Jul, [facility] [id number] [place] [address] 73387- 4623 Jul, [facility] [address] [address]- 2011 Jul, Polyneuropathy G62.9 [facility] [id number] [place] [address] 95609- 3227 Jul, [facility] [id number] [place] [address] 88092- 3444 Jun, [facility] [id number] [place] [address] 10619- 8840 Jun, [facility] [id number] [place] [address] 30221- 4248 Jun, [facility] [id number] [place] [address] 07 Jun, 2017 Encounter for dental examination Z01.20 [facility] [address] [place] [address] 65288- 1085 04 Jun, 2017 Polyneuropathy G62.9 and Anxiety F41.9 [facility] [id number] [place] [address] 79735- 3682 Jun, [facility] [id number] [place] [address] May, Dental examination Z01.20 [facility] [id number] [place] [address] 85607- 4889 May, Polyneuropathy G62.9 [facility] [id number] [place] [address] 93353- 2399 Apr, Polyneuropathy G62.9 [facility] [id number] [place] [address] 14466- 2115 Apr, Polyneuropathy G62.9 [facility] [id number] [place] [address] 03938- 6370 Apr, Hypertension, benign I10 ; Polyneuropathy G62.9 and Anxiety F41.9 [facility] [address] [address]- 5326 Apr, Primary insomnia F51.01 and Polyneuropathy G62.9 [facility] [id number] [place] [address] 25316- 7685 Apr, Primary insomnia F51.01 and Polyneuropathy G62.9 [facility] [id number] [place] [address] 88491- 1597 Mar, Primary insomnia F51.01 [facility] [id number] [place] [address] 55315- 2607 Mar, [facility] [id number] [place] [address] 32162- 4020 Mar, Polyneuropathy G62.9 [facility] [id number] [place] [address] 62080- 5547 Feb, Primary insomnia F51.01 [facility] [id number] [place] [address] 95499- 8549 Feb, [facility] [id number] [place] [address] 49023- 3611 Feb, [facility] [id number] [place] [address] 65531- 9034 Feb, Polyneuropathy G62.9 [facility] [address], [place] [address] 1727 Feb, Primary insomnia F51.01 [facility] [id number] [place] [address], [place] [address]- 8527 Jan, [facility] [id number], [place] [address]- 3879 Jan, [facility] [id number] [place] [address] 37967- 5581 Dec, [facility] [id number] [place] [address] 48574- 6256 Dec, Primary insomnia F51.01 [facility] [id number] [place] [address] 71753- 7886 Dec, Primary insomnia F51.01 [facility] [id number] [place] [address] 90645- 2973 Dec, [facility] [id number] [place] [address] 36556- 1591 Dec, [facility] [id number] [place] [address] 76045- 3394 Dec, [facility] [id number] [place] [address] 70245- 3245 Dec, [facility] [address] [place] [address] 36257- 5709 November, Primary insomnia F51.01 and Polyneuropathy G62.9 [facility] [address], [place] [address]- 2725 November, [facility] [id number] [place] [address] 38232- 4268 November, Abdominal pain, left lower quadrant R10.32 [facility] [address], [place] [address]- 9213 November, [facility] [id number] [place] [address] 14837- 0660 Oct, [facility] [address] [place] [address] 47978- 0458 Oct, Abdominal pain, left lower quadrant R10.32 ; 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 and Neuropathy G62.9 [facility] [address] [place] [address] 14546- 1253 Oct, [facility] [id number] [place] [address] 01823- 6498 Sep, [facility] [id number] [place] [address] [id number] Sep, [facility] [id number] [place] [address] 24345- 2774 Sep, [facility] [id number] [place] [address] 05762- 4572 Aug, [facility] [id number] [place] [address] 79748- 4556 Aug, [facility] [id number] [place] [address] 94456- 2148 Aug, Abdominal pain, left lower quadrant R10.32 ; Neuropathy G62.9 and Anxiety F41.9 [facility] [address] [place] [address] Jul, [facility] [id number] [place] [address] 92482- 2525 Jul, [facility] [id number] [place] [address] 46012 -7503 Jul, [facility] [id number] [place] [address] 70731- 4270 Jul, [facility] [address] [place] [address] 42671- 5739 Jul, [facility] [id number] [place] [address] 69724- 3263 Jun, [facility] [address], [place] [address]- 3275 May, [facility] [id number] [place] [address] 20411- 4812 May, [facility] [id number] [place] [address] 09051- 5205 Apr, [facility] [id number] [place] [address] 97584- 4058 Apr, Muscle spasms of both lower extremities M62.838 and Cellulitis, unspecified cellulitis site L03.90 [facility] [id number] [place] [address] 37952- 5644 Apr, [facility] [id number] [place] [address] 13286- 7558 23 Mar, 2016 Generalized abdominal pain R10.84 [facility] [address] [place] [address] 92981- 2798 20 Mar, 2016 [facility] [address] [place] [address] 22343- 4785 14 Mar, 2016 [facility] [id number] [place] [address] 29087- 5234 14 Mar, 2016 [facility] [address] [place] [address] 43900- 7797 13 Mar, 2016 [facility] [address] [place] [address] 37690- 1647 12 Mar, 2016 [facility] [address], [place] [address]- 6040 09 Mar, 2016 [facility] [id number] [place] [address] 17231- 5331 06 Mar, 2016 [facility] [address], [place] [address]- 9859 Feb, Other specified diseases of anus and rectum K62.89 [facility] [address] [facility] [id number] [place] [address]- 8400 Feb, [facility] [address] [facility] [id number] [place] [address], [place] [address]- 1113 Feb, Dizziness R42 [facility] [address] [facility] [id number] [place] [address]- 6693 Feb, [facility] [address] [facility] [id number] [place] [address], [place] [address]- 6278 Jan, Polyneuropathy G62.9 [facility] [address] [facility] [id number] [place] [address], [place] [address]- 8778 Jan, Other specified diseases of anus and rectum K62.89 [facility] [address] [facility] [id number] [place] [address]- 9627 Jan, [facility] [address] [facility] [id number] [place] [address] 07475 -6640 Jan, [facility] [address] [facility] [id number] [place] [address]- 3681 Jan, [facility] [id number] [place] [address], [place] [address]- 4481 Jan, Dizziness R42 [facility] [address], [place] [address]- 2295 Dec, [facility] [address], [place] [address]- 2634 Dec, [facility] [address] [facility] [id number] [address]- 8328 Dec, [facility] [address] [place] [address], [place] [address]- 9104 Dec, Dizziness R42 [facility] [address] [facility] [id number] [address]- 3221 November, [facility] [address] [place] [address] 17173- 3663 Oct, [facility] [id number] [place] [address] 49726- 2146 Oct, [facility] [id number] [place] [address] 03930- 7821 Oct, [facility] [id number] [place] [address] 59822- 8757 Oct, [facility] [id number] [place] [address] 18064- 3146 Sep, [facility] [id number] [place] [address] 53311- 7753 Sep, Primary insomnia F51.01 [facility] [id number] [place] [address] 91284- 8319 Sep, Primary insomnia F51.01 [facility] [id number] [place] [address] 61999- 6131 Sep, [facility] [id number] [place] [address] 97485- 4981 Aug, [facility] [id number] [place] [address] 91569- 5519 Aug, [facility] [id number] [place] [address] 39692- 8161 Aug, Primary insomnia F51.01 ; Mood disorder F39 ; Nausea and vomiting, unspecified intactability, vomiting of unspecified type R11.2 and Diarrhea R19.7 [facility] [id number] [place] [address] 63969- 3945 Aug, [facility] [id number] [place] [address] 14616- 8754 05 Aug, 2015 Folliculitis L73.9 [facility] [id number] [place] [address] 57911- 0590 Aug, [facility] [id number], [place] [address]- 0103 Aug, [facility] [address] [place] [address] 95299- 1682 Jul, Folliculitis L73.9 [facility] [address], [place] [address]- 6790 Jul, [facility] [address] [place] [address] 53568- 1611 Jun, Folliculitis L73.9 [facility] [address] [place] [address] 36685- 9608 Jun, [facility] [id number] [place] [address] 02160- 2909 May, Polyneuropathy G62.9 [facility] [address] [place] [address] 90776- 8741 May, Other specified diseases of anus and rectum K62.89 [facility] [address] [place] [address] 09789- 4171 May, [facility] [id number] [place] [address] 40669- 2922 May, Primary insomnia F51.01 [facility] [address], [place] [address]- 2992 May, [facility] [address] [place] [address] 48962- 7958 May, [facility] [address] [place] [address] 08987- 4281 Apr, Other specified diseases of anus and rectum K62.89 ; Chronic fatigue R53.82 ; Urinary tract infection, site not specified N39.0 and Enterococcus as the cause of diseases classified elsewhere B95.2 [facility] [address], [place] [address]- 6619 Apr, [facility] [id number], [place] [address]- 7513 15 Apr, 2015 [facility] [address] [facility] [id number], [place] [address] 2546 14 Apr, 2015 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 [facility] [place] [facility] [address] [id number], [place] [address] 2546 05 Apr, 2015 [facility] [place] [facility] [address] [facility] [id number] [address] 2546 26 Mar, 2014 [facility] [place] [facility] [address] [facility] [id number], [place] [address] 2546 23 Mar, 2014 [facility] [place] [facility] [address] [facility] [id number] [place] [address] 78329 2546 17 Mar, 2015 [facility] [place] [facility] [address] [facility] [id number] [address] 2545 14 Mar, 2015 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 [facility] [place] [facility] [id number] [address]- 9623 12 Mar, 2015 [facility] [place] [facility] [address] [facility] [id number], [place] [address] 2546 11 Mar, 2015 [facility] [place] [facility] [id number], [place] [address] 2546 11 Mar, 2015 [facility] [place] [facility] [address] [facility] [id number], [place] [address] 2545 10 Mar, 2015 [facility] [place] [facility] [address] [facility] [id number], [place] [address] 2549 Feb, [facility] [place] [facility] [address] [facility] [id number], [place] [address] 2546 Feb, [facility] [place] [facility] [address] [facility] [id number] [address] 2546 Feb, [facility] [place] [facility] [address] [facility] [id number], [place] [address] 2549 30 Jan, 2015 [facility] [place] [facility] [address] [facility] [id number], [place] [address]- 8730 Jan, Nausea 787.02 and Neuropathy 355.9 [facility] [id number] [place] [address] 31987- 6915 Jan, [facility] [id number], [place] [address]- 2546 Jan, [facility] [id number] [place] [address] 83285- 1066 Jan, [facility] [address] [id number] [id number] Jan, Dental examination V72.2 [facility] [id number] [place] [address] 23228- 4781 Jan, [facility] [id number] [place] [address] 65478- 0693 Dec, [facility] [id number] [place] [address] 06195- 2501 Dec, [facility] [id number] [place] [address] 48579- 7761 Dec, Neuropathy 355.9 [facility] [address] [place] [address] 87723- 1363 November, [facility] [address], [place] [address]- 0333 November, [facility] [address], [place] [address]- 3466 November, [facility] [address], [place] [address]- 4963 Oct, [facility] [id number] [address]- 1850 Oct, [facility] [id number], [place] [address] Sep, [facility] [id number] [address] Sep, [facility] [place] [facility] [address] [id number] [place] [address] Sep, [facility] [place] [facility] [address] [facility] [id number] [place] [address] Sep, [facility] [place] [facility] [address] [facility] [id number] [place] [address] Sep, [facility] [place] [facility] [address] [facility] [id number] [place] [address] Sep, [facility] [place] [facility] [address] [facility] [id number] [place] [address] Sep, [facility] [place] [facility] [address] [facility] [id number] [place] [address] Sep, [facility] [place] [facility] [id number] [address] Aug, 2014 [facility] [place] [facility] [address] [facility] [id number] [place] [address] Aug, 2014 [facility] [place] [facility] [address] [id number] [place] [address] Aug, 2014 [facility] [place] [facility] [address] [id number] [address] Aug, 2014 [facility] [place] [facility] [address] [id number] [place] [address] Aug, 2014 [facility] [place] [facility] [address] [facility] [id number] [address] Aug, 2014 [facility] [place] [facility] [address] [facility] [id number] [place] [address] Aug, 2014 [facility] [place] [facility] [address] [facility] [id number] [address] Aug, 2014 [facility] [place] [facility] [address] [id number] [address] Jul, [facility] [place] [facility] [address] [id number] [place] [address] Jul, [facility] [place] [facility] [address] [id number] [place] [address] Jun, [facility] [place] [facility] [address] [id number] [place] [address] Jun, [facility] [place] [facility] [address] [id number] [place] [address] Jun, [facility] [place] [facility] [address] [id number] [place] [address] Jun, [facility] [place] [facility] [address] [id number] [place] [address] Jun, [facility] [place] [facility] [address] [id number] [place] [address] Jun, [facility] [place] [facility] [address] [id number] [place] [address] Jun, [facility] [place] [facility] [address] [id number] [place] [address] Jun, [facility] [place] [facility] [address] [id number] [place] [address] Jun, [facility] [place] [facility] [address] [id number] [place] [address] Jun, [facility] [place] [facility] [address] [id number], [place] [address] Jun, [facility] [place] [facility] [address] [id number] [place] [address] May, [facility] [place] [facility] [address] [id number] [place] [address] May, [facility] [place] [facility] [address] [id number] [place] [address] May, [facility] [place] [facility] [address] [id number], [place] [address] May, [facility] [place] [facility] [address] [id number] [place] [address] May, [facility] [place] [facility] [address] [id number] [place] [address] May, [facility] [place] [facility] [address] [id number] [place] [address] May, [facility] [place] [facility] [address] [id number] [place] [address] May, [facility] [place] [facility] [address] [id number] [place] [address]- [address] May, [facility] [place] [facility] [address] [id number] [place] [address]- [address] Apr, [facility] [place] [facility] [address] [id number] [place] [address] Apr, [facility] [place] [facility] [address] [id number] [place] [address] Apr, [facility] [place] [facility] [address] [id number] [place] [address] Apr, [facility] [place] [facility] [address] [facility] [id number] [place] [address] Apr, [facility] [place] [facility] [address] [id number] [place] [address] Mar, [facility] [place] [facility] [address] [id number] [place] [address] Mar, [facility] [place] [facility] [address] [id number] [place] [address] Feb, [facility] [place] [facility] [address] [id number] [place] [address] Feb, [facility] [place] [facility] [address] [facility] [id number] [place] [address] 14[address] Feb, [facility] [place] [facility] [address] [id number] [place] [address] Feb, [facility] [place] [facility] [address] [id number] [place] [address] Feb, [facility] [place] [facility] [address] [id number] [place] [address] Feb, [facility] [place] [facility] [address] [id number] [place] [address] Jan, [facility] [place] [facility] [address] [id number] [place] [address] Jan, [facility] [place] [facility] [address] [id number] [place] [address] Jan, [facility] [place] [facility] [address] [id number] [place] [address] Jan, [facility] [place] [facility] [address] [id number] [place] [address] Jan, [facility] [place] [facility] [address] [id number] [place] [address] 4668 Jan, [facility] [place] [facility] [address] [id number] [place] [address] Jan, [facility] [place] [facility] [address] [id number] [place] [address] Jan, [facility] [place] [facility] [address] [id number] [place] [address] 88[address] Jan, [facility] [place] [facility] [address] [id number] [place] [address] 70[address] Jan, [facility] [place] [facility] [address] [id number] [place] [address] Jan, [facility] [place] [facility] [address] [id number] [place] [address] Dec, [facility] [place] [facility] [address] [id number] [place] [address]39 Dec, [facility] [place] [facility] [address] [id number] [place] [address] Dec, [facility] [place] [facility] [address] [id number] [place] [address] 1104 Dec, [facility] [place] [facility] [address] [id number] [place] [address]66 Dec, [facility] [place] [facility] [address] [id number] [place] [address] Dec, [facility] [place] [facility] [address] [id number] [place] [address]99 November, [facility] [place] [facility] [address] [id number] [place] [address] November, [facility] [place] [facility] [address] [id number] [place] [address] 8937 November, [facility] [place] [facility] [address] [id number] [place] [address]471 November, [facility] [place] [facility] [address] [id number] [place] [address] 49[address] November, [facility] [place] [facility] [address] [id number] [place] [address]449 November, [facility] [place] [facility] [address] [id number] [place] [address]85 Oct, [facility] [place] [facility] [address] [id number] [place] [address] 8637 Oct, [facility] [place] [facility] [address] [id number] [place] [address]6 Oct, [facility] [place] [facility] [address] [id number] [place] [address] Oct, [facility] [place] [facility] [address] [id number] [place] [address]92 Sep, [facility] [place] [facility] [address] [id number] [place] [address] 4[address] Sep, [facility] [address] [id number] [place] [address] Sep, [facility] [address] [id number] [place] [address] Sep, [facility] [address] [id number] [place] [address] 1168 Sep, [facility] [address] [id number] [place] [address] 8628 Aug, [facility] [address] [id number] [place] [address] Aug, [facility] [address] [id number] [place] [address] Aug, [facility] [address] [id number] [place] [address] 1791 Aug, [facility] [address] [facility] [id number] [place] [address]84 Aug, [facility] [address] [place] [address] May, [facility] [address] [id number] [place] [address] May, [facility] [address] [id number] [place] [address] 2065 May, [facility] [address] [id number] [address] May, [facility] [address] [id number] [place] [address] 6554 May, [facility] [address] [id number] [place] [address] 9961 Apr, [facility] [address] [id number] [place] [address] 0897 Apr, [facility] [place] [facility] [address] [id number] [place] [address] 1993 Apr, [facility] [place] [facility] [address] [id number] [place] [address] 6086 Apr, [facility] [place] [facility] [address] [id number] [place] [address]46 Apr, [facility] [place] [facility] [address] [id number] [place] [address] 1486 Apr, [facility] [place] [facility] [address] [id number] [place] [address] 4964 Apr, [facility] [place] [facility] [address] [id number] [place] [address] 28 Mar, 2013 [facility] [place] [facility] [address] [id number] [place] [address] 7113 Mar, [facility] [place] [facility] [address] [id number] [place] [address] 24 Mar, 2013 [facility] [place] [facility] [address] [id number] [place] [address] 6673 16 Mar, 2013 [facility] [place] [facility] [address] [id number] [place] [address]- 7092 12 Mar, 2013 [facility] [place] [facility] [address] [id number] [place] [address] 7004 Mar, [facility] [place] [facility] [address] [id number] [place] [address] 7666 Feb, [facility] [place] [facility] [address] [id number] [place] [address] 2549 Feb, [facility] [place] [facility] [address] [id number] [place] [address] 254 Feb, [facility] [place] [facility] [address] [id number] [place] [address] 2541 Feb, [facility] [place] [facility] [address] [id number] [place] [address] 7431 Feb, [facility] [address] [id number] [place] [address] 3169 Feb, [facility] [place] [facility] [address] [id number] [place] [address]- 5746 Jan, [facility] [place] [facility] [address] [id number] [place] [address]- 5966 Dec, [facility] [place] [facility] [address] [id number] [place] [address]- 2200 Dec, [facility] [place] [facility] [address] [id number] [place] [address] 5063 Dec, [facility] [place] [facility] [address] [id number] [place] [address]- 2062 Dec, [facility] [place] [facility] [address] [id number] [place] [address]- 2102 Dec, [facility] [place] [facility] [address] [id number], [place] [address] Dec, [facility] [place] [facility] [address] [id number] [place] [address]- 8842 Dec, [facility] [place] [facility] [address] [id number] [place] [address]- 8224 Dec, [facility] [place] [facility] [address] [id number], [place] [address]- 228[address] Dec, [facility] [place] [facility] [address] [id number], [place] [address] November, [facility] [place] [facility] [address] [id number] [place] [address]- 8474 November, [facility] [place] [facility] [address] [id number], [place] [address] 4230 Oct, [facility] [place] [facility] [address] [id number] [place] [address]- 3534 Sep, [facility] [place] [facility] [id number], [place] [address] 20 Sep, 2012 [facility] [id number], [place] [address] 15 Sep, 2012 [facility] [id number], [place] [address] 11 Sep, 2012 [facility] [id number], [place] [address] Aug, [facility] [id number], [place] [address] 25[address] Aug, [facility] [id number] [place] [address] Jul, [facility] [address] [id number], [place] [address] Jul, [facility] [id number] [place] [address] 117[address] Jul, [facility] [id number], [place] [address] Sep, [facility] [id number], [place] [address]- 89[address] 17 Sep, 2011 [facility] [id number], [place] [address] 10 Sep, 2011 IMMUNIZATIONS No Known Immunizations SOCIAL HISTORY Never Assessed REASON FOR VISIT triage - CBowmanRN PLAN OF CARE VITAL SIGNS MEDICATIONS Unknown [...]
--- OUTSIDE RECORDS SUMMARY | 2018-06-09 17:36 | XMS REPORT ---
Author Author LINDA BENTLEY Organization [facility] Address [address] [place] [address] Care Team Providers Care Job Setter Name Role Phone LINDA BENTLEY Unavailable PROBLEMS Type Condition ICD9-CM Code KWA15-ND Code Onset Dates Condition Status SNOMED Code Problem Abdominal pain, left lower quadrant R10.32 Active 867750368 Problem Mood disorder F39 Active 57079643 Problem Hypertension, benign I10 Active 91301198 Problem Chronic pain syndrome G89.4 Active 147917088 Problem Attention to urostomy Z43.6 Active 605685366 Problem Anxiety F41.9 Active 57038664 Problem Neuropathy G62.9 Active 042708287 Problem Malignant neoplasm of colon, unspecified part of colon C18.9 Active 292523233 Problem Polyneuropathy G62.9 Active 11247558 Problem Incontinence of feces, unspecified fecal incontinence type R15.9 Active 08504919 Problem Chronic fatigue, unspecified R53.82 Active 270030472 Problem Hydronephrosis with ureteral stricture, not elsewhere classified N13.1 Active 99194971 Problem Primary insomnia F51.01 Active 891060622 Problem 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 252550307 ALLERGIES No Information ENCOUNTERS Encounter Location Date Diagnosis [place] [address] [place] [address] 61321- 3077 November, Medicare annual wellness visit, initial Z00.00 [place] [address] [place] [address] 53124- 4072 Oct, Mood disorder F39 ; Attention to urostomy Z43.6 ; Chronic pain syndrome G89.4 and Polyneuropathy G62.9 [place] [address] [place] [id number] [address] 0146 Sep, Polyneuropathy G62.9 [place] [id number] [place] [address] 25717- 7677 Sep, [facility] [id number] [place] [address] 48540- 8775 Sep, Polyneuropathy G62.9 [facility] [id number] [place] [address] 19236- 0669 Aug, Polyneuropathy G62.9 [facility] [id number] [place] [address] 96096- 2515 Aug, Malignant neoplasm of colon, unspecified part of colon C18.9 and Polyneuropathy G62.9 [facility] [address] 8[address]42- 0189 Aug, Neuropathy G62.9 and Polyneuropathy G62.9 [facility] [id number] [place] [address] 65009- 0561 Jul, Encounter for drug screening Z02.83 [facility] [id number] [place] [address] 13832- 1446 Jul, Polyneuropathy G62.9 [facility] [id number] [place] [address] 98711- 6237 Jul, [facility] [id number] [place] [address] 19534- 6475 Jul, Neuropathy G62.9 and Anxiety F41.9 [facility] [id number] [place] [address] 34393- 7776 Jul, [facility] [id number] [place] [address] 04830- 6493 Jul, [facility] [id number] [place] [address] 39812- 2364 Jul, [facility] [id number] [place] [address] 12395- 2438 Jul, Polyneuropathy G62.9 [facility] [address] [id number] [address]- 4666 Jul, [facility] [address] [id number], [place] [address]- 5851 Jun, [facility] [id number] [place] [address] 69696- 3092 Jun, [facility] [address] [place] [address] 12080- 2304 Jun, [facility] [address] [place] [id number] [place] [address] 07 Jun, 2017 Encounter for dental examination Z01.20 [facility] [id number] [place] [address] 57645- 3464 Jun, Polyneuropathy G62.9 and Anxiety F41.9 [facility] [id number] [place] [address] 63489- 0135 Jun, [facility] [id number] [address] May, Dental examination Z01.20 [facility] [id number] [place] [address] 36186- 4922 May, Polyneuropathy G62.9 [facility] [id number] [place] [address] 41224- 4239 Apr, Polyneuropathy G62.9 [facility] [id number] [place] [address] 11158- 7342 Apr, Polyneuropathy G62.9 [facility] [id number] [place] [address] 16302- 2976 Apr, Hypertension, benign I10 ; Polyneuropathy G62.9 and Anxiety F41.9 [facility] [address], [place] [address] 9856 Apr, Primary insomnia F51.01 and Polyneuropathy G62.9 [facility] [address] [id number] [place] [address] 7370 Apr, Primary insomnia F51.01 and Polyneuropathy G62.9 [facility] [id number] [place] [address], [place] [address] 7810 Mar, Primary insomnia F51.01 [facility] [address] [place] [address], [place] [address]- 4316 Mar, [facility] [id number] [place] [address], [place] [address]- 9540 Mar, Polyneuropathy G62.9 [facility] [address] [place] [address], [place] [address]- 0325 Feb, Primary insomnia F51.01 [facility] [address] [place] [address], [place] [address]- 1721 Feb, [facility] [id number] [place] [address], [place] [address]- 9218 Feb, [facility] [id number] [place] [address] 74720- 9184 Feb, Polyneuropathy G62.9 [facility] [address] [place] [address], [place] [address]- 9846 Feb, Primary insomnia F51.01 [facility] [address] [place] [address] 8755 Jan, [facility] [address] [place] [address] 37402- 2815 Jan, [facility] [address] [place] [address], [place] [address]- 6651 Dec, [facility] [id number] [place] [address], [place] [address]- 8513 Dec, Primary insomnia F51.01 [facility] [address] [place] [address]- 4448 Dec, Primary insomnia F51.01 [facility] [address], [place] [address]- 7468 Dec, [facility] [address], [place] [address]- 1492 Dec, [facility] [address], [place] [address]- 5257 Dec, [facility] [address] [place] [address] 71178- 1398 Dec, [facility] [address], [place] [address]- 1249 November, Primary insomnia F51.01 and Polyneuropathy G62.9 [facility] [id number] [place] [address] 24561- 3987 November, [facility] [id number] [place] [address] 49214- 4400 November, Abdominal pain, left lower quadrant R10.32 [facility] [address], [place] [address]- 6913 November, [facility] [address], [place] [address]- 3643 Oct, [facility] [address], [place] [address]- 7320 Oct, Abdominal pain, left lower quadrant R10.32 ; 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 and Neuropathy G62.9 [facility] [address], [place] [address]- 0303 Oct, [facility] [address], [place] [address]- 0924 Sep, [facility] [address] [id number] [place] [address] [id number] Sep, [facility] [address], [place] [address]- 4997 Sep, [facility] [address] [id number], [place] [address]- 0102 Aug, [facility] [id number] [place] [address] 13721- 0792 Aug, [facility] [id number] [place] [address] 33680- 7602 Aug, Abdominal pain, left lower quadrant R10.32 ; Neuropathy G62.9 and Anxiety F41.9 [facility] [address] [place] [address] Jul, [facility] [id number] [place] [address] 12365- 7914 Jul, [facility] [id number] [place] [address] 34513 -0851 Jul, [facility] [id number] [place] [address] 39150- 4401 Jul, [facility] [id number] [place] [address] 71148- 4790 Jul, [facility] [id number] [place] [address] 61807- 3927 Jun, [facility] [id number] [place] [address] 39566- 3276 May, [facility] [address], [place] [address]- 8635 May, [facility] [id number] [place] [address] 72855- 1462 Apr, [facility] [address] [place] [address] 43542- 3292 Apr, Muscle spasms of both lower extremities M62.838 and Cellulitis, unspecified cellulitis site L03.90 [facility] [address], [place] [address]- 5180 Apr, [facility] [id number] [place] [address] 00264- 2102 23 Mar, 2016 Generalized abdominal pain R10.84 [facility] [address] [place] [address] 65128- 7708 20 Mar, 2015 [facility] [id number] [place] [address] 40937- 8062 14 Mar, 2015 [facility] [id number] [place] [address] 08757- 8218 14 Mar, 2015 [facility] [id number] [place] [address] 55073- 2789 13 Mar, 2015 [facility] [id number] [place] [address] 64240- 8663 12 Mar, 2016 [facility] [id number] [place] [address] 06541- 2439 09 Mar, 2016 [facility] [id number] [place] [address] 73708- 9105 06 Mar, 2016 [facility] [id number] [place] [address] 95525- 9283 Feb, Other specified diseases of anus and rectum K62.89 [facility] [address] [place] [address] 47925- 0158 Feb, [facility] [address] [place] [address] 61683- 4727 Feb, Dizziness R42 [facility] [address], [place] [address]- 8097 Feb, [facility] [address] [place] [address] 98273- 2198 Jan, Polyneuropathy G62.9 [facility] [address], [place] [address]- 4607 Jan, Other specified diseases of anus and rectum K62.89 [facility] [address], [place] [address]- 3536 Jan, [facility] [address] [id number] [place] [address]8040 16 Jan, 2016 [facility] [address] [facility] [id number] [place] [address]- 1801 Jan, [facility] [address] [facility] [id number] [place] [address]- 0793 Jan, Dizziness R42 [facility] [address] [facility] [id number] [place] [address]- 9577 Dec, [facility] [address] [id number] [place] [address]- 5284 Dec, [facility] [address] [facility] [id number] [place] [address]- 3995 Dec, [facility] [address] [facility] [id number] [place] [address]- 7573 Dec, Dizziness R42 [facility] [address] [facility] [id number] [place] [address]- 6584 November, [facility] [address] [facility] [id number] [place] [address]- 4811 Oct, [facility] [address] [facility] [id number] [place] [address]- 7283 Oct, [facility] [address] [facility] [id number] [place] [address]- 4970 Oct, [facility] [address] [facility] [id number] [place] [address]- 0015 Oct, [facility] [address] [facility] [id number] [place] [address]- 0387 Sep, [facility] [address] [facility] [id number] [place] [address]- 0825 Sep, Primary insomnia F51.01 [facility] [address] [facility] [id number] [place] [address]- 6655 Sep, Primary insomnia F51.01 [facility] [address] [place] [address] 58331- 3906 Sep, [facility] [id number] [place] [address] 26865- 2943 Aug, [facility] [id number] [place] [address] 08013- 4605 Aug, [facility] [id number] [place] [address] 36125- 4990 Aug, Primary insomnia F51.01 ; Mood disorder F39 ; Nausea and vomiting, unspecified intactability, vomiting of unspecified type R11.2 and Diarrhea R19.7 [facility] [id number] [place] [address] 25583- 3200 Aug, [facility] [id number] [place] [address] 33689- 4416 Aug, Folliculitis L73.9 [facility] [address] [place] [address] 30386- 1301 Aug, [facility] [id number] [place] [address] 97040- 5576 Aug, [facility] [address] [place] [address] 60820- 5848 Jul, Folliculitis L73.9 [facility] [id number] [place] [address] 98560- 7453 Jul, [facility] [id number] [place] [address] 82002- 1206 Jun, Folliculitis L73.9 [facility] [address] [place] [address] 54279- 7517 Jun, [facility] [address] [place] [address] 13798- 1322 May, Polyneuropathy G62.9 [facility] [id number], [place] [address]- 1845 May, Other specified diseases of anus and rectum K62.89 [facility] [address], [place] [address]- 7534 May, [facility] [address] [place] [address] 46633- 8000 May, Primary insomnia F51.01 [facility] [id number] [place] [address] 31066- 3052 May, [facility] [id number] [place] [address] 76572- 4904 May, [facility] [address] [place] [address] 24981- 9758 Apr, Other specified diseases of anus and rectum K62.89 ; Chronic fatigue R53.82 ; Urinary tract infection, site not specified N39.0 and Enterococcus as the cause of diseases classified elsewhere B95.2 [facility] [address], [place] [address]- 8476 16 Apr, 2015 [facility] [id number] [place] [address] 33711- 3047 15 Apr, 2015 [facility] [address] [place] [address] 55000- 9526 14 Apr, 2015 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 [address], [place] [address]- 5707 12 Mar, 2015 [facility] [address] [place] [address] 62553- 5560 Mar, [facility] [address] [place] [address] 18561- 6504 Mar, [facility] [id number] [place] [address] 75043- 3486 Mar, [facility] [id number] [place] [address] 62541- 7066 Feb, [facility] [id number] [place] [address] 39157- 0839 Feb, [facility] [id number] [place] [address] 80918- 3231 Feb, [facility] [address] [place] [address] 65440- 1056 Jan, [facility] [id number] [place] [address] 00717- 6508 Jan, Nausea 787.02 and Neuropathy 355.9 [facility] [address], [place] [address]- 3165 Jan, [facility] [address] [place] [address] 11534- 9592 Jan, [facility] [address], [place] [address]- 6514 Jan, [facility] [address] [id number] Jan, Dental examination V72.2 [facility] [address], [place] [address]- 9161 Jan, [facility] [address] [place] [address] 05063- 3887 Dec, [facility] [address] [id number] [place] [address]- 5714 Dec, [facility] [place] [facility] [address] [facility] [id number] [place] [address]- 5627 Dec, Neuropathy 355.9 [facility] [address] [facility] [id number] [place] [address]- 1016 November, [facility] [place] [facility] [address] [id number] [place] [address]- 5077 November, [facility] [address] [id number] [place] [address]- 9434 November, [facility] [place] [facility] [address] [id number] [place] [address]- 6995 Oct, [facility] [address] [facility] [id number] [place] [address]- 5964 Oct, [facility] [place] [facility] [address] [id number] [place] [address]- 9621 Sep, [facility] [place] [facility] [address] [id number] [place] [address]- 9509 Sep, [facility] [place] [facility] [address] [facility] [id number] [place] [address]- 1413 Sep, [facility] [place] [facility] [address] [facility] [id number] [place] [address]- 1819 Sep, [facility] [place] [facility] [address] [id number], [place] [address]- 8898 Sep, [facility] [place] [facility] [address] [id number] [place] [address]- 3975 Sep, [facility] [place] [facility] [address] [facility] [id number] [place] [address]- 2503 Sep, [facility] [place] [facility] [address] [facility] [id number], [place] [address]- 6804 Sep, [facility] [place] [facility] [address] [id number] [place] [address]- 1591 Aug, 2014 [facility] [place] [facility] [address] [id number] [place] [address] Aug, 2014 [facility] [place] [facility] [address] [id number] [place] [address] Aug, 2014 [facility] [place] [facility] [address] [id number] [place] [address] Aug, 2014 [facility] [place] [facility] [address] [id number] [place] [address] Aug, 2014 [facility] [place] [facility] [address] [id number] [place] [address] Aug, 2014 [facility] [place] [facility] [address] [id number] [place] [address] Aug, 2014 [facility] [place] [facility] [address] [id number] [place] [address] Aug, 2014 [facility] [place] [facility] [address] [id number] [place] [address] Jul, [facility] [place] [facility] [address] [facility] [id number] [place] [address] Jul, [facility] [place] [facility] [address] [id number] [place] [address] Jun, [facility] [place] [facility] [address] [id number] [place] [address] Jun, [facility] [place] [facility] [address] [id number] [place] [address] Jun, [facility] [place] [facility] [address] [id number] [place] [address] Jun, [facility] [place] [facility] [address] [id number] [place] [address] Jun, [facility] [place] [facility] [address] [id number] [place] [address] Jun, [facility] [place] [facility] [address] [id number] [place] [address] Jun, [facility] [place] [facility] [address] [id number] [place] [address] Jun, [facility] [place] [facility] [address] [id number] [place] [address] Jun, [facility] [place] [facility] [address] [id number] [place] [address] Jun, [facility] [place] [facility] [address] [id number] [place] [address] Jun, [facility] [place] [facility] [address] [id number] [place] [address] May, [facility] [place] [facility] [address] [id number] [place] [address] May, [facility] [place] [facility] [address] [id number] [place] [address] May, [facility] [place] [facility] [address] [id number] [place] [address] May, [facility] [place] [facility] [address] [facility] [id number] [place] [address] May, [facility] [place] [facility] [address] [id number] [place] [address] May, [facility] [place] [facility] [address] [id number], [place] [address] May, [facility] [place] [facility] [address] [id number] [place] [address] May, [facility] [place] [facility] [address] [id number] [place] [address] May, [facility] [place] [facility] [address] [id number] [place] [address] Apr, [facility] [place] [facility] [address] [id number] [place] [address] Apr, [facility] [place] [facility] [address] [id number] [place] [address] Apr, [facility] [place] [facility] [address] [id number] [place] [address] Apr, [facility] [place] [facility] [address] [id number] [place] [address] Apr, [facility] [place] [facility] [address] [id number] [place] [address] Mar, [facility] [place] [facility] [address] [id number] [place] [address] Mar, [facility] [place] [facility] [address] [id number] [place] [address] Feb, [facility] [place] [facility] [address] [id number] [place] [address] Feb, [facility] [place] [facility] [address] [id number] [place] [address] Feb, [facility] [place] [facility] [address] [id number] [place] [address] Feb, [facility] [place] [facility] [address] [id number] [place] [address] Feb, [facility] [place] [facility] [address] [id number] [place] [address] Feb, [facility] [place] [facility] [address] [id number] [place] [address] Jan, [facility] [place] [facility] [address] [id number] [place] [address] Jan, [facility] [place] [facility] [address] [id number] [place] [address] Jan, [facility] [place] [facility] [address] [id number] [place] [address]60 Jan, [facility] [place] [facility] [address] [id number] [place] [address] Jan, [facility] [place] [facility] [address] [id number] [place] [address] Jan, [facility] [place] [facility] [address] [id number] [place] [address] Jan, [facility] [place] [facility] [address] [id number] [place] [address] Jan, [facility] [place] [facility] [address] [id number] [place] [address] 160[address] Jan, [facility] [place] [facility] [address] [id number] [place] [address] Jan, [facility] [place] [facility] [address] [id number] [place] [address] 6268 Jan, [facility] [place] [facility] [address] [id number] [place] [address]- [address]65 Dec, [facility] [place] [facility] [address] [id number] [place] [address]- [address] Dec, [facility] [place] [facility] [address] [id number] [place] [address] Dec, [facility] [place] [facility] [address] [id number] [place] [address]40 Dec, [facility] [place] [facility] [address] [id number] [place] [address] 279[address] Dec, [facility] [place] [facility] [address] [id number] [place] [address] 7340 Dec, [facility] [place] [facility] [address] [id number] [place] [address] November, [facility] [place] [facility] [address] [id number] [place] [address] 7937 November, [facility] [place] [facility] [address] [id number] [place] [address]- [address]69 15 Nov, 2013 [facility] [place] [facility] [address] [id number] [place] [address] 97[address] November, [facility] [place] [facility] [address] [id number] [place] [address] 4786 November, [facility] [place] [facility] [address] [id number] [place] [address] November, [facility] [place] [facility] [address] [id number] [place] [address]169 Oct, [facility] [place] [facility] [address] [id number] [place] [address]- 4780 Oct, [facility] [place] [facility] [address] [id number] [place] [address] 1391 Oct, [facility] [place] [facility] [address] [id number] [place] [address] Oct, [facility] [place] [facility] [address] [id number] [place] [address] Sep, [facility] [place] [facility] [address] [id number] [place] [address] 9108 Sep, [facility] [place] [facility] [address] [facility] [id number] [place] [address] Sep, [facility] [place] [facility] [address] [id number] [place] [address] Sep, [facility] [place] [facility] [address] [id number] [id number] [address] Sep, [facility] [place] [facility] [address] [id number] [place] [address]- [address] Aug, [facility] [place] [facility] [address] [id number] [place] [address] Aug, [facility] [place] [facility] [address] [id number] [place] [address]663 Aug, [facility] [address] [id number] [place] [address] Aug, [facility] [address] [id number] [place] [address] Aug, [facility] [address] [place] [id number] May, [facility] [address] [id number] [place] [address] May, [facility] [address] [id number] [place] [address] 1699 May, [facility] [address] [id number] [place] [address]- [address] May, [facility] [address] [id number] [place] [address] May, [facility] [address] [id number] [place] [address] Apr, [facility] [address] [id number] [place] [address] 8871 Apr, [facility] [address] [id number] [place] [address]85 Apr, [facility] [address] [id number] [place] [address] 6[address] Apr, [facility] [address] [id number], [place] [address] Apr, [facility] [address] [id number] [place] [address]- [address]275 Apr, [facility] [address] [id number] [place] [address]- 6136 Apr, [facility] [address] [id number] [place] [address] Mar, [facility] [address] [id number] [place] [address] 25 Mar, 2013 [facility] [place] [facility] [address] [id number] [place] [address]- [address] 24 Mar, 2013 [facility] [place] [facility] [address] [id number] [place] [address]- [address] 16 Mar, 2013 [facility] [place] [facility] [address] [id number] [place] [address]- [address]235 Mar, [facility] [place] [facility] [address] [id number] [place] [address]- [address]666 Mar, [facility] [place] [facility] [address] [id number] [place] [address]- [address]886 Feb, [facility] [place] [facility] [address] [id number] [place] [address]- 8781 Feb, [facility] [place] [facility] [address] [id number] [place] [address]- 9525 Feb, [facility] [place] [facility] [address] [id number] [place] [address]- 2550 Feb, [facility] [place] [facility] [address] [id number] [place] [address]- 1386 Feb, [facility] [place] [facility] [address] [id number] [place] [address]- 9714 Feb, [facility] [place] [facility] [address] [id number] [place] [address]- 8429 Jan, [facility] [place] [facility] [address] [id number] [place] [address]- 8725 Dec, [facility] [place] [facility] [address] [id number] [place] [address]- 3082 Dec, [facility] [place] [facility] [address] [id number] [place] [address]- 7828 Dec, [facility] [place] [facility] [address] [id number] [place] [address]- 1119 Dec, [facility] [place] [facility] [address] [id number] [place] [address]- 3917 19 Dec, 2012 [facility] [address] [id number] [place] [address]- [address]227 18 Dec, [address] [facility] [address] [id number] [place] [address]- 1335 17 Dec, [address] [facility] [address] [id number] [place] [address]- 2504 Dec, [facility] [address] [id number] [place] [address]- 1533 Dec, [facility] [address] [id number] [place] [address]- 8925 November, [facility] [address] [id number] [place] [address]- 9242 November, [facility] [address] [id number] [place] [address]- [address]456 Oct, [facility] [address] [id number] [place] [address]- 6302 Sep, [facility] [address] [id number] [place] [address]- 7649 Sep, [facility] [address] [id number] [place] [address]- [address]15 Sep, [facility] [address] [id number] [place] [address]- 0828 Sep, [facility] [address] [id number] [place] [address]- [address]11 Aug, [facility] [address] [id number] [place] [address]- 5277 Aug, [facility] [address] [id number] [place] [address]- [address] Jul, [facility] [address] [id number] [place] [address]- 6173 Jul, [facility] [address] [facility] [id number], [place] [address] Jul, [facility] [address] [facility] [id number], [place] [address]16 Sep, [facility] [address] [facility] [id number], [place] [address] Sep, [facility] [address] [facility] [id number], [place] [address] Sep, IMMUNIZATIONS No Known Immunizations SOCIAL HISTORY Never Assessed REASON FOR VISIT Controlled Med Refill PLAN OF CARE VITAL SIGNS MEDICATIONS Medication Instructions Dosage Frequency Start Date End Date Duration Status Percocet 10-325 MG Orally every 4 hrs 1 tablet 4h Feb, 28 days Active RESULTS No Results [...]
--- OUTSIDE RECORDS SUMMARY | 2018-06-09 17:37 | XMS REPORT ---
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 Name Role Phone LINDA BENTLEY Unavailable PROBLEMS Type Condition ICD9-CM Code SZD37-OY Code Onset Dates Condition Status SNOMED Code Problem Abdominal pain, left lower quadrant R10.32 Active 975107504 Problem Mood disorder F39 Active 97131025 Problem Hypertension, benign I10 Active 23008468 Problem Chronic pain syndrome G89.4 Active 226471124 Problem Attention to urostomy Z43.6 Active 716263467 Problem Anxiety F41.9 Active 52583241 Problem Neuropathy G62.9 Active 282052964 Problem Malignant neoplasm of colon, unspecified part of colon C18.9 Active 781476815 Problem Polyneuropathy G62.9 Active 15487713 Problem Incontinence of feces, unspecified fecal incontinence type R15.9 Active 56848272 Problem Chronic fatigue, unspecified R53.82 Active 139234243 Problem Hydronephrosis with ureteral stricture, not elsewhere classified N13.1 Active 04240556 Problem Primary insomnia F51.01 Active 228984494 Problem 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 847074182 ALLERGIES No Information ENCOUNTERS Encounter Location Date Diagnosis [place] [address], [place] [address] Jan, [facility] [address], [place] [address]365 Dec, Mood disorder F39 [facility] [id number] [place] [address] 50933- 4476 November, Polyneuropathy G62.9 [place] [id number], [place] [address] 4[address] November, Medicare annual wellness visit, initial Z00.00 [place] [address] [id number] [place] [address] 60692- 4628 November, Mood disorder F39 [facility] [id number] [place] [address] 08863- 6179 Oct, Polyneuropathy G62.9 [facility] [id number] [place] [address] 58643- 1194 Oct, [facility] [id number] [place] [address] 35509- 4312 Oct, [facility] [id number] [place] [address] 11212- 9379 Oct, Mood disorder F39 ; Attention to urostomy Z43.6 ; Chronic pain syndrome G89.4 and Polyneuropathy G62.9 [facility] [id number] [place] [address] 89444- 3167 Sep, Polyneuropathy G62.9 [facility] [id number] [place] [address] 66174- 1930 Sep, [facility] [id number] [place] [address] 27271- 0994 Sep, Polyneuropathy G62.9 [facility] [id number] [place] [address] 01336- 4429 Aug, Polyneuropathy G62.9 [facility] [id number] [place] [address] 37956- 1773 Aug, Malignant neoplasm of colon, unspecified part of colon C18.9 and Polyneuropathy G62.9 [facility] [id number] [place] [address] 52473- 4469 Aug, Neuropathy G62.9 and Polyneuropathy G62.9 [facility] [id number] [place] [address] 45137- 3620 Jul, Encounter for drug screening Z02.83 [facility] [id number] [place] [address] 64159- 6296 Jul, Polyneuropathy G62.9 [facility] [address] [place] [address] 65591- 3628 Jul, [facility] [id number] [place] [address] 84918- 3045 Jul, Neuropathy G62.9 and Anxiety F41.9 [facility] [id number] [place] [address] 82888- 5369 Jul, [facility] [id number] [place] [address] 40595- 3677 Jul, [facility] [id number] [place] [address] 48167- 9100 Jul, [facility] [id number] [place] [address] 98047- 0879 Jul, Polyneuropathy G62.9 [facility] [id number] [place] [address] 45265- 4247 Jul, [facility] [id number] [place] [address] 32657- 2169 Jun, [facility] [id number] [place] [address] 04079- 7470 Jun, [facility] [address] [place] [address] 07459- 4867 Jun, [facility] [id number] [place] [address] 07 Jun, 2017 Encounter for dental examination Z01.20 [facility] [address] [place] [address] 47326- 5129 Jun, Polyneuropathy G62.9 and Anxiety F41.9 [facility] [address] [place] [address] 09863- 3177 Jun, [facility] [address] [place] [id number] [place] [address] May, Dental examination Z01.20 [facility] [id number] [place] [address] 49487- 5356 May, Polyneuropathy G62.9 [facility] [id number] [place] [address] 69072- 1452 Apr, Polyneuropathy G62.9 [facility] [address] [address]- 9147 Apr, Polyneuropathy G62.9 [facility] [id number] [place] [address] 20983- 9346 Apr, Hypertension, benign I10 ; Polyneuropathy G62.9 and Anxiety F41.9 [facility] [id number] [place] [address] 05426- 8439 Apr, Primary insomnia F51.01 and Polyneuropathy G62.9 [facility] [id number] [place] [address] 32764- 0338 Apr, Primary insomnia F51.01 and Polyneuropathy G62.9 [facility] [id number] [place] [address] 71480- 8405 Mar, Primary insomnia F51.01 [facility] [address] [place] [address] 28224- 3188 Mar, [facility] [id number] [place] [address] 85760- 5265 Mar, Polyneuropathy G62.9 [facility] [id number] [place] [address] 23900- 0586 Feb, Primary insomnia F51.01 [facility] [id number] [place] [address] 07714- 1430 Feb, [facility] [id number] [place] [address] 65344- 6176 Feb, [facility] [id number] [address]- 1088 Feb, Polyneuropathy G62.9 [facility] [address] [place] [address] 7825 Feb, Primary insomnia F51.01 [facility] [address] [address] 8299 Jan, [facility] [id number] [place] [address], [place] [address]- 0895 Jan, [facility] [address] [address]- 6214 Dec, [facility] [address] [place] [address], [place] [address]- 4129 Dec, Primary insomnia F51.01 [facility] [address] [place] [address], [place] [address]- 7005 Dec, Primary insomnia F51.01 [facility] [address] [address]- 3149 Dec, [facility] [address] [address]- 0906 Dec, [facility] [address] [address]- 5961 Dec, [facility] [address], [place] [address]- 0375 Dec, [facility] [address], [place] [address]- 4768 November, Primary insomnia F51.01 and Polyneuropathy G62.9 [facility] [address] [address]- 6199 November, [facility] [address], [place] [address]- 1501 November, Abdominal pain, left lower quadrant R10.32 [facility] [id number], [place] [address]- 7136 November, [facility] [address] [place] [address] 60777- 6783 Oct, [facility] [address] [place] [address] 17677- 5062 Oct, Abdominal pain, left lower quadrant R10.32 ; 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 and Neuropathy G62.9 [facility] [address] [place] [address] 29557- 4652 Oct, [facility] [id number] [place] [address] 50681- 1805 Sep, [facility] [id number] [place] [address] [id number] Sep, [facility] [address] [place] [address] 17791- 6272 Sep, [facility] [address] [place] [address] 09154- 1699 Aug, [facility] [id number] [place] [address] 90660- 3021 Aug, [facility] [address] [place] [address] 12750- 2970 Aug, Abdominal pain, left lower quadrant R10.32 ; Neuropathy G62.9 and Anxiety F41.9 [facility] [address] [place] [address] Jul, [facility] [address], [place] [address]- 7695 Jul, [facility] [id number] [place] [address] 14792 -1363 Jul, [facility] [id number] [place] [address] 24458- 2524 Jul, [facility] [id number] [place] [address] 89141- 7889 Jul, [facility] [address] [facility] [id number], [place] [address]- 0968 Jun, [facility] [address] [facility] [id number] 8347 May, [facility] [id number], [place] [address]- 2833 May, [facility] [address] [facility] [id number] [place] [address] 24020- 7354 Apr, [facility] [address] [facility] [id number], [place] [address]- 0240 Apr, Muscle spasms of both lower extremities M62.838 and Cellulitis, unspecified cellulitis site L03.90 [facility] [address], [place] [address]- 1853 Apr, [facility] [address], [place] [address]- 8900 23 Mar, 2016 Generalized abdominal pain R10.84 [facility] [address] [facility] [id number], [place] [address]- 9619 20 Mar, 2016 [facility] [id number], [place] [address]- 1091 14 Mar, 2016 [facility] [address] [facility] [id number], [place] [address]- 0788 14 Mar, 2015 [facility] [address] [facility] [id number], [place] [address]- 2547 13 Mar, 2015 [facility] [address] [facility] [id number], [place] [address]- 2543 12 Mar, 2015 [facility] [id number], [place] [address]- 2543 09 Mar, 2015 [facility] [id number], [place] [address]- 2547 06 Mar, 2015 [facility] [address], [place] [address]- 5872 17 Feb, 2016 Other specified diseases of anus and rectum K62.89 [facility] [id number] [place] [address] 06081- 6656 Feb, [facility] [address] [place] [address] 34022- 4617 Feb, Dizziness R42 [facility] [id number] [place] [address] 02566- 8453 Feb, [facility] [id number] [place] [address] 38365- 3593 Jan, Polyneuropathy G62.9 [facility] [id number] [place] [address] 75865- 2954 Jan, Other specified diseases of anus and rectum K62.89 [facility] [id number] [place] [address] 71522- 3253 Jan, [facility] [address] [place] [address] 22077 -6961 Jan, [facility] [address] [place] [address] 26202- 8152 Jan, [facility] [address], [place] [address]- 3554 Jan, Dizziness R42 [facility] [address], [place] [address]- 0875 Dec, [facility] [address], [place] [address]- 1250 Dec, [facility] [id number] [place] [address] 50108- 5881 Dec, [facility] [address] [place] [address] 25261- 9043 Dec, Dizziness R42 [facility] [id number] [place] [address] 85134- 9940 November, [facility] [address], [place] [address]- 2303 Oct, [facility] [id number] [place] [address] 75567- 4088 Oct, [facility] [id number] [place] [address] 12654- 7786 Oct, [facility] [id number] [place] [address] 72630- 3847 Oct, [facility] [id number] [place] [address] 64339- 2918 Sep, [facility] [id number] [place] [address] 81410- 0522 Sep, Primary insomnia F51.01 [facility] [id number] [place] [address] 48386- 7755 Sep, Primary insomnia F51.01 [facility] [id number] [place] [address] 54132- 2338 Sep, [facility] [id number] [place] [address] 62284- 9741 Aug, [facility] [address] [place] [address] 90767- 0198 Aug, [facility] [id number] [place] [address] 57591- 0171 Aug, Primary insomnia F51.01 ; Mood disorder F39 ; Nausea and vomiting, unspecified intactability, vomiting of unspecified type R11.2 and Diarrhea R19.7 [facility] [id number] [place] [address] 04884- 3021 Aug, [facility] [address], [place] [address]- 4643 05 Aug, 2015 Folliculitis L73.9 [facility] [id number], [place] [address]- 9122 Aug, [facility] [address] [place] [address] 75565- 7949 Aug, [facility] [address] [place] [address] 58189- 7571 Jul, Folliculitis L73.9 [facility] [address] [place] [id number] [place] [address] 88421- 5285 Jul, [facility] [address] [place] [address] 57284- 4666 Jun, Folliculitis L73.9 [facility] [address] [id number] [place] [address] 02971- 5255 Jun, [place] [id number] [place] [address] 48865- 4606 May, Polyneuropathy G62.9 [facility] [address] [place] [address] 69249- 7153 May, Other specified diseases of anus and rectum K62.89 [place] [id number] [place] [address] 55991- 1643 May, [place] [id number] [place] [address] 01071- 5930 May, Primary insomnia F51.01 [facility] [address] [place] [address] 62821- 2390 May, [facility] [address] [place] [address] 19165- 8490 May, [facility] [address] [place] [address] 30314- 5304 Apr, Other specified diseases of anus and rectum K62.89 ; Chronic fatigue R53.82 ; Urinary tract infection, site not specified N39.0 and Enterococcus as the cause of diseases classified elsewhere B95.2 [place] [id number], [place] [address]- 7934 16 Apr, 2015 [facility] [address] [facility] [id number], [place] [address]- 4234 15 Apr, 2015 [facility] [address] [facility] [id number], [place] [address]- 2546 14 Apr, 2015 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 [facility] [address] [facility] [id number], [place] [address] 2546 05 Apr, 2015 [facility] [address] [facility] [id number], [place] [address]- 2541 26 Mar, 2014 [facility] [id number] [place] [address] 97867- 4826 23 Mar, 2015 [facility] [address], [place] [address]- 7476 17 Mar, 2015 [facility] [address] [place] [address] 37400- 2547 14 Mar, 2015 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 [facility] [address] [id number], [place] [address]- 5824 12 Mar, 2015 [facility] [address] [id number], [place] [address]- 8500 11 Mar, 2015 [facility] [address], [place] [address]- 7837 11 Mar, 2015 [facility] [address] [facility] [id number], [place] [address] 2545 10 Mar, 2015 [facility] [address] [facility] [id number], [place] [address]- 2546 Feb, [facility] [address] [facility] [id number], [place] [address]- 254 14 Feb, 2015 [facility] [address] [id number], [place] [address]- 1808 Feb, [facility] [address] [facility] [id number], [place] [address]- 1508 Jan, [facility] [address] [facility] [id number], [place] [address]- 9160 Jan, Nausea 787.02 and Neuropathy 355.9 [facility] [address], [place] [address] 254 Jan, [facility] [id number] [place] [address] 96579 254 Jan, [facility] [address] [facility] [id number], [place] [address]- 7419 Jan, [facility] [address] [id number][place] [id number] Jan, Dental examination V72.2 [facility] [address], [place] [address]- 4534 Jan, [facility] [address] [place] [address] 40320- 0136 Dec, [facility] [address], [place] [address]- 8487 Dec, [facility] [address] 6330 Dec, Neuropathy 355.9 [facility] [id number], [place] [address] November, [facility] [address] [facility] [id number], [place] [address] November, [facility] [place] [facility] [address] [facility] [id number] [address] November, [facility] [address] [facility] [id number], [place] [address] Oct, [facility] [place] [facility] [id number], [place] [address] Oct, [facility] [id number] [address] Sep, 2014 [facility] [place] [facility] [address] [id number] [place] [address] Sep, 2014 [facility] [place] [facility] [address] [id number] [place] [address] Sep, 2014 [facility] [place] [facility] [address] [id number] [place] [address] Sep, 2014 [facility] [place] [facility] [address] [id number] [place] [address] Sep, [facility] [place] [facility] [address] [id number] [place] [address] Sep, [facility] [place] [facility] [address] [facility] [id number] [place] [address] Sep, [facility] [place] [facility] [address] [facility] [id number] [place] [address] Sep, 2014 [facility] [place] [facility] [address] [facility] [id number] [place] [address] Aug, 2014 [facility] [place] [facility] [address] [facility] [id number] [place] [address] Aug, 2014 [facility] [place] [facility] [address] [facility] [id number] [place] [address] Aug, 2014 [facility] [place] [facility] [address] [facility] [id number] [place] [address] Aug, 2014 [facility] [place] [facility] [address] [facility] [id number] [place] [address] Aug, 2014 [facility] [place] [facility] [address] [id number] [place] [address] Aug, 2014 [facility] [place] [facility] [address] [facility] [id number] [place] [address] Aug, 2014 [facility] [place] [facility] [address] [facility] [id number] [place] [address] Aug, [facility] [place] [facility] [address] [id number] [place] [address] Jul, [facility] [place] [facility] [address] [id number] [place] [address] Jul, [facility] [place] [facility] [address] [id number] [place] [address] Jun, [facility] [place] [facility] [address] [id number] [place] [address] Jun, [facility] [place] [facility] [address] [id number] [place] [address] Jun, [facility] [place] [facility] [address] [id number] [place] [address]- [address] Jun, [facility] [place] [facility] [address] [id number] [place] [address] Jun, [facility] [place] [facility] [address] [id number] [place] [address] Jun, [facility] [place] [facility] [address] [id number] [place] [address]- [address] Jun, [facility] [place] [facility] [address] [id number] [place] [address]- [address] Jun, [facility] [place] [facility] [address] [id number] [place] [address]- [address] Jun, [facility] [place] [facility] [address] [id number] [place] [address]- [address] Jun, [facility] [place] [facility] [address] [id number] [place] [address]- [address] Jun, [facility] [place] [facility] [address] [id number] [place] [address]- [address] May, [facility] [place] [facility] [address] [id number] [place] [address] May, [facility] [place] [facility] [address] [id number] [place] [address] May, [facility] [place] [facility] [address] [id number] [place] [address] May, [facility] [place] [facility] [address] [id number] [place] [address] May, [facility] [place] [facility] [address] [id number] [place] [address] 101[address] May, [facility] [place] [facility] [address] [id number] [place] [address] 9524 May, [facility] [place] [facility] [address] [id number] [place] [address] 29[address] May, [facility] [place] [facility] [address] [id number] [place] [address] May, [facility] [place] [facility] [address] [id number] [place] [address] 96[address] Apr, [facility] [place] [facility] [address] [id number] [place] [address] Apr, [facility] [place] [facility] [address] [id number] [place] [address] 8034 Apr, [facility] [place] [facility] [address] [id number] [place] [address] 2531 Apr, [facility] [place] [facility] [address] [id number] [place] [address] 1458 Apr, [facility] [place] [facility] [address] [id number] [place] [address] 50[address] Mar, [facility] [place] [facility] [address] [id number] [place] [address]- 7969 Mar, [facility] [place] [facility] [address] [id number] [place] [address] 8492 Feb, [facility] [place] [facility] [address] [id number] [place] [address] 8184 Feb, [facility] [place] [facility] [address] [id number] [place] [address] 12[address] Feb, [facility] [place] [facility] [address] [id number] [place] [address] 6[address] Feb, [facility] [place] [facility] [address] [id number] [place] [address] Feb, [facility] [place] [facility] [address] [id number] [place] [address] 9761 Feb, [facility] [place] [facility] [address] [id number] [place] [address] 74[address] Jan, [facility] [place] [facility] [address] [id number] [place] [address]100 Jan, [facility] [place] [facility] [address] [id number] [place] [address]- 4626 Jan, [facility] [place] [facility] [address] [id number] [place] [address] Jan, [facility] [place] [facility] [address] [id number] [place] [address] 1636 Jan, [facility] [place] [facility] [address] [id number] [place] [address]- [address]118 Jan, [facility] [place] [facility] [address] [id number] [place] [address]- 3098 Jan, [facility] [place] [facility] [address] [id number] [place] [address]- 7381 Jan, [facility] [place] [facility] [address] [id number] [place] [address] Jan, [facility] [place] [facility] [address] [id number] [place] [address]- 459[address] Jan, [facility] [place] [facility] [address] [id number] [place] [address]- 2866 Jan, [facility] [place] [facility] [address] [id number] [place] [address] 7804 Dec, [facility] [place] [facility] [address] [id number] [place] [address]- 0324 Dec, [facility] [place] [facility] [address] [id number] [place] [address]- 5218 Dec, [facility] [place] [facility] [address] [id number] [place] [address]- 6208 Dec, [facility] [place] [facility] [address] [id number] [place] [address] 7746 Dec, [facility] [place] [facility] [address] [id number] [place] [address]- 4557 Dec, [facility] [place] [facility] [address] [id number] [place] [address] 05[address] November, [facility] [place] [facility] [address] [id number] [place] [address] 3831 November, [facility] [place] [facility] [address] [id number] [place] [address]- 6035 November, [facility] [place] [facility] [address] [id number] [place] [address]- 8591 November, [facility] [place] [facility] [address] [id number] [place] [address]- 7193 November, [facility] [place] [facility] [address] [id number] [place] [address] 8226 November, [facility] [place] [facility] [address] [id number] [place] [address] 0725 Oct, [facility] [place] [facility] [address] [id number] [place] [address]- 6518 Oct, [facility] [place] [facility] [address] [id number] [place] [address]- 1709 Oct, [facility] [place] [facility] [address] [id number] [place] [address]- 1394 Oct, [facility] [place] [facility] [address] [id number] [place] [address] 17 Sep, 2013 [facility] [address] [id number] [place] [address]- 0724 Sep, [facility] [address] [id number] [place] [address] 0239 Sep, [facility] [address] [id number] [place] [address]- 4840 Sep, [facility] [address] [id number] [place] [address]- 4340 Sep, [facility] [address] [id number] [place] [address]- 4881 Aug, [facility] [address] [id number] [place] [address]- 3753 Aug, [facility] [address] [id number] [place] [address]- 7801 Aug, [facility] [address] [id number] [place] [address]- 6515 Aug, [facility] [address] [id number] [place] [address]- 7[address] Aug, [facility] [address] [place] [id number] May, [facility] [address] [id number] [place] [address]- 4516 May, [facility] [address] [id number] [place] [address]- 3210 May, [facility] [address] [id number] [place] [address]- 8132 May, [facility] [address] [id number] [place] [address]- 7367 May, [facility] [address] [id number] [place] [address]- 5698 Apr, [facility] [address] [id number] [place] [address]- 9114 Apr, [facility] [place] [facility] [address] [id number] [place] [address]- 3934 Apr, [facility] [place] [facility] [address] [id number] [place] [address]- 1515 Apr, [facility] [place] [facility] [address] [id number] [place] [address]- 5462 Apr, [facility] [address] [id number] [place] [address]- 3778 Apr, [facility] [place] [facility] [address] [id number] [place] [address]- 9750 Apr, [facility] [address] [id number] [place] [address]- 0206 Mar, [facility] [place] [facility] [address] [id number] [place] [address]- 6109 Mar, [facility] [place] [facility] [address] [id number] [place] [address]- 7369 24 Mar, 2013 [facility] [place] [facility] [address] [id number] [place] [address]- 6398 16 Mar, 2013 [facility] [place] [facility] [address] [id number] [place] [address]- 6001 12 Mar, 2013 [facility] [place] [facility] [address] [id number], [place] [address]- 67[address] 06 Mar, 2013 [facility] [place] [facility] [address] [id number] [place] [address]- 8079 Feb, [facility] [place] [facility] [address] [id number] [place] [address]- 7104 Feb, [facility] [place] [facility] [address] [id number] [place] [address]- 5701 Feb, [facility] [place] [facility] [address] [id number] [place] [address]- 1655 Feb, [facility] [place] [facility] [address] [id number] [place] [address]- 6696 Feb, [facility] [place] [facility] [address] [id number] [place] [address]- 5722 Feb, [facility] [place] [facility] [address] [id number] [place] [address]- 8439 Jan, [facility] [place] [facility] [address] [id number] [place] [address]- 4180 Dec, [facility] [place] [facility] [address] [id number] [place] [address]- 3805 Dec, [facility] [place] [facility] [address] [id number] [place] [address]- 2431 Dec, [facility] [place] [facility] [address] [id number] [place] [address]- 0945 Dec, [facility] [place] [facility] [address] [id number] [place] [address]- 9559 Dec, [facility] [place] [facility] [address] [id number] [place] [address]- 1607 Dec, [facility] [place] [facility] [address] [id number] [place] [address]- 4731 Dec, [facility] [place] [facility] [address] [id number] [place] [address]- 0084 Dec, [facility] [place] [facility] [address] [id number] [place] [address]- 2139 Dec, [facility] [place] [facility] [address] [id number] [place] [address]- 1426 November, [facility] [place] [facility] [address] [id number] [place] [address]- 5323 November, [facility] [place] [facility] [address] [id number] [place] [address]- 7780 Oct, [facility] [place] [facility] [address] [id number], [place] [address] 3[address] 21 Sep, 2012 [facility] [id number], [place] [address] 20 Sep, 2012 [facility] [id number], [place] [address] 6130 15 Sep, 2012 [facility] [id number], [place] [address] 6688 Sep, [facility] [id number], [place] [address] 9390 Aug, [facility] [id number] [address] Aug, [facility] [id number], [place] [address] 8532 Jul, [facility] [id number], [place] [address]89 Jul, [facility] [id number], [place] [address]- 2743 Jul, [facility] [id number], [place] [address]- 6791 Sep, [facility] [id number], [place] [address]- 3415 Sep, [facility] [id number], [place] [address]- 5026 10 Sep, 2011 IMMUNIZATIONS No Known Immunizations SOCIAL HISTORY Never Assessed REASON FOR VISIT Refill request/duplicate PLAN OF CARE VITAL SIGNS MEDICATIONS Unknown [...]
--- OUTSIDE RECORDS SUMMARY | 2018-06-09 17:38 | XMS REPORT ---
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 Name Role Phone LINDA BENTLEY Unavailable PROBLEMS Type Condition ICD9-CM Code OER25-PA Code Onset Dates Condition Status SNOMED Code Problem Abdominal pain, left lower quadrant R10.32 Active 312467702 Problem Mood disorder F39 Active 18557761 Problem Hypertension, benign I10 Active 16849453 Problem Chronic pain syndrome G89.4 Active 131227911 Problem Attention to urostomy Z43.6 Active 183094960 Problem Anxiety F41.9 Active 82375139 Problem Neuropathy G62.9 Active 495596796 Problem Malignant neoplasm of colon, unspecified part of colon C18.9 Active 244013713 Problem Polyneuropathy G62.9 Active 76565033 Problem Incontinence of feces, unspecified fecal incontinence type R15.9 Active 61624038 Problem Chronic fatigue, unspecified R53.82 Active 018658731 Problem Hydronephrosis with ureteral stricture, not elsewhere classified N13.1 Active 91073893 Problem Primary insomnia F51.01 Active 721758683 Problem 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 311456555 ALLERGIES No Information ENCOUNTERS Encounter Location Date Diagnosis [place] [id number] [place] [address] 65784- 3441 November, Medicare annual wellness visit, initial Z00.00 [place] [id number] [place] [address] 78243- 4391 Oct, Mood disorder F39 ; Attention to urostomy Z43.6 ; Chronic pain syndrome G89.4 and Polyneuropathy G62.9 [place] [address] [place] [id number] [place] [address] 53232- 8282 Sep, Polyneuropathy G62.9 [place] [address] [place] [id number] [place] [address] 45022- 0193 Sep, [facility] [id number] [place] [address] 31212- 2651 Sep, Polyneuropathy G62.9 [facility] [id number] [place] [address] 38984- 0813 Aug, Polyneuropathy G62.9 [facility] [id number] [place] [address] 28889- 1210 Aug, Malignant neoplasm of colon, unspecified part of colon C18.9 and Polyneuropathy G62.9 [facility] [address] 27003- 6085 Aug, Neuropathy G62.9 and Polyneuropathy G62.9 [facility] [address] [id number] [place] [address] 04529- 5202 Jul, Encounter for drug screening Z02.83 [facility] [id number] [place] [address] 80165- 4523 Jul, Polyneuropathy G62.9 [facility] [id number] [place] [address] 99162- 6310 Jul, [facility] [id number] [place] [address] 25367- 6594 Jul, Neuropathy G62.9 and Anxiety F41.9 [facility] [id number] [place] [address] 95390- 7251 Jul, [facility] [id number] [place] [address] 84718- 1446 Jul, [facility] [id number] [place] [address] 31680- 3348 Jul, [facility] [id number] [place] [address] 65655- 1505 Jul, Polyneuropathy G62.9 [facility] [id number] [address]- 9502 Jul, [facility] [id number] [address]- 2166 Jun, [facility] [id number] [place] [address] 39250- 2021 Jun, [facility] [id number] [place] [address] 60248- 0426 Jun, [facility] [address] [place] [id number] [place] [address] 07 Jun, 2017 Encounter for dental examination Z01.20 [facility] [id number] [place] [address] 49469- 9208 Jun, Polyneuropathy G62.9 and Anxiety F41.9 [facility] [id number] [place] [address] 74952- 3076 Jun, [facility] [id number] [address] May, Dental examination Z01.20 [facility] [id number] [place] [address] 57984- 5881 May, Polyneuropathy G62.9 [facility] [id number] [place] [address] 63730- 9225 Apr, Polyneuropathy G62.9 [facility] [id number] [place] [address] 76221- 9751 Apr, Polyneuropathy G62.9 [facility] [id number] [place] [address] 14488- 6579 Apr, Hypertension, benign I10 ; Polyneuropathy G62.9 and Anxiety F41.9 [facility] [address] [address] 3664 Apr, Primary insomnia F51.01 and Polyneuropathy G62.9 [facility] [address] [id number] [place] [address]- 9016 Apr, Primary insomnia F51.01 and Polyneuropathy G62.9 [facility] [id number] [place] [address], [place] [address]- 8508 Mar, Primary insomnia F51.01 [facility] [address] [place] [address], [place] [address]- 7238 Mar, [facility] [address] [id number] [place] [address], [place] [address]- 3428 Mar, Polyneuropathy G62.9 [facility] [address] [place] [address], [place] [address]- 9708 Feb, Primary insomnia F51.01 [facility] [address] [place] [address], [place] [address]- 5721 Feb, [facility] [address] [id number] [place] [address], [place] [address]- 7637 Feb, [facility] [address] [id number] [place] [address] 46628- 0562 Feb, Polyneuropathy G62.9 [facility] [address] [place] [address], [place] [address]- 4398 Feb, Primary insomnia F51.01 [facility] [id number] [place] [address]- 3388 Jan, [facility] [id number] [place] [address] 33081- 1227 Jan, [facility] [address] [place] [address], [place] [address]- 4026 Dec, [facility] [address] [id number] [place] [address], [place] [address]- 1002 Dec, Primary insomnia F51.01 [facility] [address] [place] [address]- 2630 Dec, Primary insomnia F51.01 [facility] [address] [address] Dec, [facility] [address], [place] [address]- 7710 Dec, [facility] [address], [place] [address]- 0670 Dec, [facility] [id number] [place] [address] 37452- 5093 Dec, [facility] [address] [address]- 5514 November, Primary insomnia F51.01 and Polyneuropathy G62.9 [facility] [address] [place] [id number] [place] [address] 08032- 4682 November, [facility] [address] [id number] [place] [address] 22214- 8928 November, Abdominal pain, left lower quadrant R10.32 [facility] [address] [address]- 1460 November, [facility] [address] [address]- 7667 Oct, [facility] [address] [address]- 7581 Oct, Abdominal pain, left lower quadrant R10.32 ; 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 [id number] [address]- 5549 Aug, [facility] [address] [id number] [place] [address] 83434- 2966 Aug, [facility] [address] [id number] [place] [address] 63283- 7413 Aug, Abdominal pain, left lower quadrant R10.32 ; Neuropathy G62.9 and Anxiety F41.9 [facility] [address] [place] [address] Jul, [facility] [address] [id number] [place] [address] 35351- 8471 Jul, [facility] [id number] [place] [address] 64500 -6251 Jul, [facility] [address] [id number] [place] [address] 65531- 1872 Jul, [facility] [id number] [place] [address] 67450- 0576 Jul, [facility] [id number] [place] [address] 35963- 6374 Jun, [facility] [id number] [place] [address] 69965- 7371 May, [facility] [address] [address]- 9057 May, [facility] [id number] [place] [address] 57013- 4543 Apr, [facility] [id number] [place] [address] 42486- 3335 Apr, Muscle spasms of both lower extremities M62.838 and Cellulitis, unspecified cellulitis site L03.90 [facility] [address] [address]- 1970 Apr, [facility] [address] [place] [id number] [place] [address] 14425- 8620 23 Mar, 2016 Generalized abdominal pain R10.84 [facility] [id number] [place] [address] 88377- 4402 20 Mar, 2015 [facility] [address] [place] [id number] [place] [address] 71461- 2244 14 Mar, 2015 [facility] [id number] [place] [address] 64932- 0637 14 Mar, 2015 [facility] [address] [place] [id number] [place] [address] 95658- 3392 13 Mar, 2015 [facility] [id number] [place] [address] 31387- 8098 12 Mar, 2016 [facility] [address] [id number] [place] [address] 05844- 6266 09 Mar, 2016 [facility] [address] [place] [id number] [place] [address] 77837- 1980 06 Mar, 2016 [facility] [address] [place] [id number] [place] [address] 74550- 5968 Feb, Other specified diseases of anus and rectum K62.89 [facility] [id number] [place] [address] 04255- 4917 Feb, [facility] [id number] [place] [address] 15638- 8224 Feb, Dizziness R42 [facility] [address] [address]- 8408 Feb, [facility] [id number] [place] [address] 03422- 0693 Jan, Polyneuropathy G62.9 [facility] [address], [place] [address]- 0513 Jan, Other specified diseases of anus and rectum K62.89 [facility] [address] [address]- 6106 Jan, [facility] [address] [id number] [place] [address] -5945 16 Jan, 2016 [facility] [address] [facility] [address] [id number] [place] [address]- 5014 Jan, [facility] [address] [facility] 2001 [id number] [place] [address]- 1771 Jan, Dizziness R42 [facility] [address] [facility] 2001 [id number] [place] [address]- 1255 Dec, [facility] [address] [id number] [place] [address]- 6426 Dec, [facility] [address] [facility] 2001 [id number] [place] [address]- 6412 Dec, [facility] [address] [facility] [address] [id number] [place] [address]- 7684 Dec, Dizziness R42 [facility] [address] [facility] [address] [id number] [place] [address]- 4404 November, [facility] [address] [facility] [address] [id number] [place] [address]- 6062 Oct, [facility] [address] [facility] [address] [id number] [place] [address]- 9600 Oct, [facility] [address] [facility] [address] [id number] [place] [address]- 0248 Oct, [facility] [address] [facility] [address] [id number] [place] [address]- 3907 Oct, [facility] [address] [facility] [address] [id number] [place] [address]- 5292 Sep, [facility] [address] [facility] [address] [id number] [place] [address]- 4946 Sep, Primary insomnia F51.01 [facility] [address] [facility] [address] [id number] [place] [address]- 0524 Sep, Primary insomnia F51.01 [facility] [id number] [place] [address] 76634- 2224 Sep, [facility] [address] [id number] [place] [address] 73291- 3308 Aug, [facility] [id number] [place] [address] 81013- 1912 Aug, [facility] [id number] [place] [address] 96742- 9546 Aug, Primary insomnia F51.01 ; Mood disorder F39 ; Nausea and vomiting, unspecified intactability, vomiting of unspecified type R11.2 and Diarrhea R19.7 [facility] [address] [id number] [place] [address] 25587- 8104 Aug, [facility] [address] [id number] [place] [address] 72499- 1397 Aug, Folliculitis L73.9 [facility] [address] [place] [address] 37281- 6813 Aug, [facility] [id number] [place] [address] 95480- 2558 Aug, [facility] [address] [place] [address] 75481- 1551 Jul, Folliculitis L73.9 [facility] [id number] [place] [address] 94567- 1286 Jul, [facility] [id number] [place] [address] 83612- 8228 Jun, Folliculitis L73.9 [facility] [address] [place] [address] 47125- 1082 Jun, [facility] [address] [place] [address] 17835- 1770 May, Polyneuropathy G62.9 [facility] [id number] [address]- 9859 May, Other specified diseases of anus and rectum K62.89 [facility] [address] [address]- 6903 May, [facility] [address] [place] [address] 66568- 9282 May, Primary insomnia F51.01 [facility] [id number] [place] [address] 23563- 0468 May, [facility] [id number] [place] [address] 47308- 9632 May, [facility] [address] [place] [address] 93905- 8451 Apr, Other specified diseases of anus and rectum K62.89 ; Chronic fatigue R53.82 ; Urinary tract infection, site not specified N39.0 and Enterococcus as the cause of diseases classified elsewhere B95.2 [facility] [address] [address]- 4041 16 Apr, 2015 [facility] [address] [place] [id number] [place] [address] 84383- 1334 15 Apr, 2015 [facility] [address] [place] [address] 55726- 4020 14 Apr, 2015 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 [facility] [address] [address]- 3054 05 Apr, 2015 [facility] [address], [place] [address]- 1679 Mar, [facility] [id number] [place] [address] 67778- 8177 23 Mar, 2015 [facility] [address] [address]- 3609 17 Mar, 2015 [facility] [address] [place] [address] 77127- 4992 14 Mar, 2015 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 [facility] [address] [address]- 6177 12 Mar, 2015 [facility] [id number] [place] [address] 23623- 0501 Mar, [facility] [id number] [place] [address] 08507- 1234 Mar, [facility] [id number] [place] [address] 27651- 2193 Mar, [facility] [id number] [place] [address] 14611- 6821 Feb, [facility] [id number] [place] [address] 80873- 4574 Feb, [facility] [id number] [place] [address] 92734- 8448 Feb, [facility] [id number] [place] [address] 89557- 2765 Jan, [facility] [id number] [place] [address] 24972- 3683 Jan, Nausea 787.02 and Neuropathy 355.9 [facility] [address] [address]- 8867 Jan, [facility] [id number] [place] [address] 03241- 7256 Jan, [facility] [address], [place] [address]- 6026 Jan, [facility] [address] [address] Jan, Dental examination V72.2 [facility] [address] [address]- 9055 Jan, [facility] [id number] [place] [address] 15775- 6555 Dec, [facility] [address] [id number] [place] [address]- 2449 Dec, [facility] [place] [facility] [address] [facility] [address] [id number] [place] [address]- 7410 Dec, Neuropathy 355.9 [facility] [address] [facility] 2001 [id number] [place] [address]- 9036 November, [facility] [place] [facility] [address] [id number] [place] [address]- 8267 November, [facility] [address] [id number] [place] [address]- 5997 November, [facility] [place] [facility] [address] [id number] [place] [address]- 0103 Oct, [facility] [address] [facility] 2001 [id number] [place] [address]- 5198 Oct, [facility] [place] [facility] [address] [id number] [place] [address]- 4776 Sep, [facility] [place] [facility] [address] [id number] [place] [address]- 5928 Sep, [facility] [place] [facility] [address] [facility] 2001 [id number] [place] [address]- 7313 Sep, [facility] [place] [facility] [address] [facility] [address] [id number] [place] [address]- 8567 Sep, [facility] [place] [facility] [address] [id number] [address]- 7306 Sep, [facility] [place] [facility] [address] [id number] [place] [address]- 7295 Sep, [facility] [place] [facility] [address] [facility] [address] [id number] [place] [address]- 3582 Sep, [facility] [place] [facility] [address] [facility] [address] [id number] [address]- 4986 Sep, [facility] [place] [facility] [address] [id number] [place] [address] Aug, 2014 [facility] [place] [facility] [address] [id number] [place] [address] Aug, 2014 [facility] [place] [facility] [address] [id number] [place] [address] Aug, 2014 [facility] [place] [facility] [address] [id number] [place] [address] Aug, 2014 [facility] [place] [facility] [address] [id number] [place] [address] Aug, 2014 [facility] [place] [facility] [address] [id number] [place] [address] Aug, 2014 [facility] [place] [facility] [address] [id number] [place] [address] Aug, 2014 [facility] [place] [facility] [address] [id number] [place] [address] Aug, 2014 [facility] [place] [facility] [address] [id number] [place] [address] Jul, [facility] [place] [facility] [address] [facility] [id number] [place] [address] Jul, [facility] [place] [facility] [address] [id number] [place] [address] Jun, [facility] [place] [facility] [address] [id number] [place] [address] Jun, [facility] [place] [facility] [address] [id number] [place] [address] Jun, [facility] [place] [facility] [address] [id number] [place] [address] Jun, [facility] [place] [facility] [address] [id number] [place] [address] Jun, [facility] [place] [facility] [address] [id number] [place] [address] Jun, [facility] [place] [facility] [address] [id number] [place] [address] Jun, [facility] [place] [facility] [address] [id number] [place] [address] Jun, [facility] [place] [facility] [address] [id number] [place] [address] Jun, [facility] [place] [facility] [address] [id number] [place] [address] Jun, [facility] [place] [facility] [address] [id number] [place] [address] Jun, [facility] [place] [facility] [address] [id number] [place] [address] May, [facility] [place] [facility] [address] [id number] [place] [address]- [address] May, [facility] [place] [facility] [address] [id number] [place] [address] May, [facility] [place] [facility] [address] [id number] [place] [address] May, [facility] [place] [facility] [address] [address] [id number] [place] [address] May, [facility] [place] [facility] [address] [id number] [place] [address] May, [facility] [place] [facility] [address] [id number] [address] May, [facility] [place] [facility] [address] [id number] [place] [address] May, [facility] [place] [facility] [address] [id number] [place] [address] May, [facility] [place] [facility] [address] [id number] [place] [address] Apr, [facility] [place] [facility] [address] [id number] [place] [address] Apr, [facility] [place] [facility] [address] [id number] [place] [address] Apr, [facility] [place] [facility] [address] [id number] [place] [address] Apr, [facility] [place] [facility] [address] [id number] [place] [address] Apr, [facility] [place] [facility] [address] [id number] [place] [address] Mar, [facility] [place] [facility] [address] [id number] [place] [address] Mar, [facility] [place] [facility] [address] [id number] [place] [address] Feb, [facility] [place] [facility] [address] [id number] [place] [address] Feb, [facility] [place] [facility] [address] [id number] [place] [address] Feb, [facility] [place] [facility] [address] [id number] [place] [address] Feb, [facility] [place] [facility] [address] [id number] [place] [address] Feb, [facility] [place] [facility] [address] [id number] [place] [address] Feb, [facility] [place] [facility] [address] [id number] [place] [address] Jan, [facility] [place] [facility] [address] [id number] [place] [address] Jan, [facility] [place] [facility] [address] [id number] [place] [address] Jan, [facility] [place] [facility] [address] [id number] [place] [address] Jan, [facility] [place] [facility] [address] [id number] [place] [address] Jan, [facility] [place] [facility] [address] [id number] [place] [address]152 Jan, [facility] [place] [facility] [address] [id number] [place] [address] Jan, [facility] [place] [facility] [address] [id number] [place] [address] 4056 Jan, [facility] [place] [facility] [address] [id number] [place] [address] 1674 Jan, [facility] [place] [facility] [address] [id number] [place] [address] 9241 Jan, [facility] [place] [facility] [address] [id number] [place] [address] Jan, [facility] [place] [facility] [address] [id number] [place] [address]- 4196 Dec, [facility] [place] [facility] [address] [id number] [place] [address] 9281 Dec, [facility] [place] [facility] [address] [id number] [place] [address]- 7266 Dec, [facility] [place] [facility] [address] [id number] [place] [address]- 1406 Dec, [facility] [place] [facility] [address] [id number] [place] [address]792 Dec, [facility] [place] [facility] [address] [id number] [place] [address]- 64[address] Dec, [facility] [place] [facility] [address] [id number] [place] [address] 9511 November, [facility] [place] [facility] [address] [id number] [place] [address] 6076 November, [facility] [place] [facility] [address] [id number] [place] [address] 15 Nov, 2013 [facility] [place] [facility] [address] [id number] [place] [address] 0289 November, [facility] [place] [facility] [address] [id number] [place] [address] 2896 November, [facility] [place] [facility] [address] [id number] [place] [address] November, [facility] [place] [facility] [address] [id number] [place] [address]336 Oct, [facility] [place] [facility] [address] [id number] [place] [address] 2079 Oct, [facility] [place] [facility] [address] [id number] [place] [address]245 Oct, [facility] [place] [facility] [address] [id number] [place] [address] Oct, [facility] [place] [facility] [address] [id number] [place] [address] Sep, [facility] [place] [facility] [address] [id number] [place] [address] 0802 Sep, [facility] [place] [facility] [address] [facility] [id number] [place] [address] 1228 Sep, [facility] [place] [facility] [address] [id number] [place] [address] 8726 Sep, [facility] [place] [facility] [address] [id number] [place] [address] Sep, [facility] [place] [facility] [address] [id number] [place] [address] 9618 Aug, [facility] [place] [facility] [address] [id number] [place] [address] 0066 Aug, [facility] [place] [facility] [address] [id number] [place] [address] 17[address] Aug, [facility] [address] [id number] [place] [address] Aug, [facility] [address] [id number] [place] [address] Aug, [facility] [place] [id number] May, [facility] [address] [id number] [place] [address] May, [facility] [address] [id number] [place] [address] 0767 May, [facility] [address] [id number] [place] [address] 6070 May, [facility] [address] [id number] [place] [address] 2875 May, [facility] [address] [id number] [place] [address] 5917 Apr, [facility] [address] [id number] [place] [address] 2645 Apr, [facility] [address] [id number] [place] [address] 8273 Apr, [facility] [address] [id number] [place] [address]- 2713 Apr, [facility] [address] [id number] [address] Apr, [facility] [address] [id number] [place] [address] 1748 Apr, [facility] [address] [id number] [place] [address]- 5426 Apr, [facility] [address] [id number] [place] [address]50 Mar, [facility] [address] [id number] [place] [address]38 25 Mar, 2013 [facility] [place] [facility] [address] [id number] [place] [address]444 24 Mar, 2013 [facility] [place] [facility] [address] [id number] [place] [address] 5661 16 Mar, 2013 [facility] [place] [facility] [address] [id number] [place] [address] 6522 Mar, [facility] [place] [facility] [address] [id number] [place] [address] 9[address] Mar, [facility] [place] [facility] [address] [id number] [place] [address] 8813 Feb, [facility] [place] [facility] [address] [id number] [place] [address] 8137 Feb, [facility] [place] [facility] [address] [id number] [place] [address] 1637 Feb, [facility] [place] [facility] [address] [id number] [place] [address]- 7885 Feb, [facility] [place] [facility] [address] [id number] [place] [address]- 4565 Feb, [facility] [place] [facility] [address] [id number] [place] [address]- 7197 Feb, [facility] [place] [facility] [address] [id number] [place] [address]- 0142 Jan, [facility] [place] [facility] [address] [id number] [place] [address]- 3340 Dec, [facility] [place] [facility] [address] [id number] [place] [address]- 2950 Dec, [facility] [place] [facility] [address] [id number] [place] [address]- 6064 Dec, [facility] [place] [facility] [address] [id number] [place] [address]- 7549 Dec, [facility] [place] [facility] [address] [id number] [place] [address]- 7013 19 Dec, 2012 [facility] [address] [id number] [place] [address]- 1616 18 Dec, 2012 [facility] [address] [id number] [place] [address]- 1252 17 Dec, 2012 [facility] [address] [id number] [place] [address]- 2269 Dec, [facility] [address] [id number] [place] [address]- 8427 Dec, [facility] [address] [id number] [place] [address]- 2325 November, [facility] [address] [id number] [place] [address]- 7785 November, [facility] [address] [id number] [place] [address]- 5453 Oct, [facility] [address] [id number] [place] [address]- 8719 Sep, [facility] [address] [id number] [place] [address]- 7763 Sep, [facility] [address] [id number] [place] [address]- 2878 Sep, [facility] [address] [id number] [place] [address]- 6877 Sep, [facility] [address] [id number] [place] [address]- 5534 Aug, [facility] [address] [id number] [place] [address]- 2049 Aug, [facility] [address] [id number] [place] [address]- 7736 Jul, [facility] [address] [id number] [place] [address]- 5755 Jul, [facility] [address] [facility] [address] [id number] [address] 1156 Jul, [facility] [address] [facility] [address] [id number] [address] 2546 Sep, [facility] [address] [facility] [address] [id number] [address] 2546 Sep, [facility] [address] [facility] [address] [id number] [address] Sep, IMMUNIZATIONS No Known Immunizations SOCIAL HISTORY Never Assessed REASON FOR VISIT Medication question controlled PLAN OF CARE VITAL SIGNS MEDICATIONS Medication [...]
--- OUTSIDE RECORDS SUMMARY | 2018-06-09 17:38 | XMS REPORT ---
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 Name Role Phone LINDA BENTLEY Unavailable PROBLEMS Type Condition ICD9-CM Code BKE92-ET Code Onset Dates Condition Status SNOMED Code Problem Abdominal pain, left lower quadrant R10.32 Active 477999714 Problem Mood disorder F39 Active 89170976 Problem Hypertension, benign I10 Active 09104705 Problem Chronic pain syndrome G89.4 Active 747082099 Problem Attention to urostomy Z43.6 Active 709196278 Problem Anxiety F41.9 Active 35200923 Problem Neuropathy G62.9 Active 597639165 Problem Malignant neoplasm of colon, unspecified part of colon C18.9 Active 202128759 Problem Polyneuropathy G62.9 Active 28619394 Problem Incontinence of feces, unspecified fecal incontinence type R15.9 Active 35798431 Problem Chronic fatigue, unspecified R53.82 Active 178820765 Problem Hydronephrosis with ureteral stricture, not elsewhere classified N13.1 Active 30533666 Problem Primary insomnia F51.01 Active 188625580 Problem 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 504133680 ALLERGIES No Information ENCOUNTERS Encounter Location Date Diagnosis [id number], [place] [address] Dec, [facility] [id number], [place] [address] November, Medicare annual wellness visit, initial Z00.00 [address], [place] [address] November, Mood disorder F39 [facility] [id number], [place] [address] 9781 Oct, Polyneuropathy G62.9 [id number] [place] [address] 83491- 6149 Oct, [facility] [address] [address]- [address] Oct, [facility] [id number] [place] [address] 96952- 2727 Oct, Mood disorder F39 ; Attention to urostomy Z43.6 ; Chronic pain syndrome G89.4 and Polyneuropathy G62.9 [facility] [id number] [place] [address] 37866- 6148 Sep, Polyneuropathy G62.9 [facility] [address] [address]66- 6172 Sep, [facility] [address] [address]67- 3220 Sep, Polyneuropathy G62.9 [facility] [address] 86448- 9051 Aug, Polyneuropathy G62.9 [facility] [id number] [place] [address] 96546- 7283 Aug, Malignant neoplasm of colon, unspecified part of colon C18.9 and Polyneuropathy G62.9 [facility] [id number] [place] [address] 39270- 3478 Aug, Neuropathy G62.9 and Polyneuropathy G62.9 [facility] [id number] [place] [address] 50568- 8639 Jul, Encounter for drug screening Z02.83 [facility] [address] 39993- 3595 Jul, Polyneuropathy G62.9 [facility] [id number] [place] [address] 94983- 6010 Jul, [facility] [address] 10335- 9798 Jul, Neuropathy G62.9 and Anxiety F41.9 [facility] [id number] [place] [address] 39875- 7678 Jul, [facility] [id number] [place] [address] 91763- 8863 Jul, [facility] [id number] [place] [address] 74341- 2661 Jul, [facility] [id number] [place] [address] 42990- 5500 Jul, Polyneuropathy G62.9 [facility] [id number] [place] [address] 55938- 6102 Jul, [facility] [id number] [place] [address] 05747- 0806 Jun, [facility] [id number] [place] [address] 91149- 5734 Jun, [facility] [id number] [place] [address] 08449- 5304 Jun, [facility] [id number] [place] [address] Jun, Encounter for dental examination Z01.20 [facility] [id number] [place] [address] 36936- 0442 Jun, Polyneuropathy G62.9 and Anxiety F41.9 [facility] [id number] [place] [address] 17667- 1807 Jun, [facility] [id number] [place] [address] May, Dental examination Z01.20 [facility] [id number] [place] [address] 99554- 8356 06 May, 2017 Polyneuropathy G62.9 [facility] [id number] [place] [address] 41655- 0801 Apr, Polyneuropathy G62.9 [facility] [id number] [place] [address] 03480- 9359 Apr, Polyneuropathy G62.9 [facility] [id number] [place] [address] 37922- 8160 Apr, Hypertension, benign I10 ; Polyneuropathy G62.9 and Anxiety F41.9 [facility] [id number] [place] [address] 19582- 2886 Apr, Primary insomnia F51.01 and Polyneuropathy G62.9 [facility] [address] [address]- 4293 Apr, Primary insomnia F51.01 and Polyneuropathy G62.9 [facility] [id number] [place] [address] 66946- 5450 Mar, Primary insomnia F51.01 [facility] [id number] [place] [address] 64622- 1188 Mar, [facility] [address] 58796- 0769 Mar, Polyneuropathy G62.9 [facility] [id number] [place] [address] 43904- 7054 Feb, Primary insomnia F51.01 [facility] [id number] [place] [address] 05405- 2792 Feb, [facility] [id number] [place] [address] 81217- 7259 Feb, [facility] [id number] [place] [address] 80893- 9589 Feb, Polyneuropathy G62.9 [facility] [id number] [place] [address] 49255- 6160 Feb, Primary insomnia F51.01 [facility] [address], [place] [address] 2952 Jan, [facility] [address] [place] [address] 5184 Jan, [facility] [id number] [place] [address], [place] [address]- 0184 Dec, [facility] [id number] [place] [address] 51097- 6170 Dec, Primary insomnia F51.01 [facility] [id number] [place] [address] 00128- 0472 Dec, Primary insomnia F51.01 [facility] [id number] [place] [address], [place] [address]- 6004 Dec, [facility] [id number] [place] [address], [place] [address]- 6936 Dec, [facility] [id number] [place] [address] 86207- 7376 Dec, [facility] [id number] [place] [address] 67850- 0909 Dec, [facility] [id number] [place] [address] 65086- 4248 November, Primary insomnia F51.01 and Polyneuropathy G62.9 [facility] [address], [place] [address]- 5709 November, [facility] [address], [place] [address]- 4499 November, Abdominal pain, left lower quadrant R10.32 [facility] [address] [place] [address]- 0414 November, [facility] [address], [place] [address]- 7089 Oct, [facility] [id number] [place] [address] 70358- 6955 Oct, Abdominal pain, left lower quadrant R10.32 ; 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 and Neuropathy G62.9 [facility] [id number] [place] [address] 43747- 2395 Oct, [facility] [id number] [place] [address] 23196- 0952 Sep, [facility] [id number] [place] [address] [id number] Sep, [facility] [id number] [place] [address] 36814- 3554 Sep, [facility] [id number] [place] [address] 49273- 8652 Aug, [facility] [id number] [place] [address] 67413- 0995 Aug, [facility] [id number] [place] [address] 75232- 9755 Aug, Abdominal pain, left lower quadrant R10.32 ; Neuropathy G62.9 and Anxiety F41.9 [facility] [address] [place] [address] Jul, [facility] [id number] [place] [address] 10119- 7843 Jul, [facility] [id number] [place] [address] 78597 -7579 Jul, [facility] [id number] [place] [address] 11235- 2327 Jul, [facility] [id number] [place] [address] 41892- 6310 Jul, [facility] [id number] [place] [address] 40190- 9008 Jun, [facility] [id number] [place] [address] 84250- 0838 May, [facility] [address] [facility] [id number] [address]- 2563 May, [facility] [id number] [place] [address] 86964- 6412 Apr, [facility] [address], [place] [address]- 2440 Apr, Muscle spasms of both lower extremities M62.838 and Cellulitis, unspecified cellulitis site L03.90 [facility] [address] [facility] [id number] [address]- 5844 Apr, [facility] [id number] [place] [address] 83819- 6634 23 Mar, 2016 Generalized abdominal pain R10.84 [facility] [id number] [place] [address] 76605- 0152 20 Mar, 2016 [facility] [id number] [place] [address] 85130- 3424 14 Mar, 2016 [facility] [id number], [place] [address]- 9474 14 Mar, 2016 [facility] [address], [place] [address]- 3542 13 Mar, 2016 [facility] [address], [place] [address]- 2664 12 Mar, 2016 [facility] [address], [place] [address]- 4824 09 Mar, 2016 [facility] [id number], [place] [address]- 2548 06 Mar, 2016 [facility] [address], [place] [address]- 1336 17 Feb, 2016 Other specified diseases of anus and rectum K62.89 [facility] [address], [place] [address]- 8629 15 Feb, 2016 [facility] [address] [address]- 0430 Feb, Dizziness R42 [facility] [id number] [place] [address], [place] [address]- 4426 Feb, [facility] [id number] [place] [address] 24982- 3782 Jan, Polyneuropathy G62.9 [facility] [id number] [place] [address], [place] [address]- 8982 Jan, Other specified diseases of anus and rectum K62.89 [facility] [id number] [place] [address], [place] [address]- 5603 Jan, [facility] [id number] [place] [address] 05538 -1670 Jan, [facility] [id number] [place] [address] 08347- 9908 Jan, [facility] [id number] [place] [address] 58369- 1467 Jan, Dizziness R42 [facility] [id number] [place] [address], [place] [address]- 9247 Dec, [facility] [id number] [place] [address] 10262- 2443 Dec, [facility] [id number] [place] [address] 60482- 5868 Dec, [facility] [id number] [place] [address] 21846- 6204 Dec, Dizziness R42 [facility] [id number] [place] [address], [place] [address]- 0832 November, [facility] [id number] [address]- 8690 Oct, [facility] [id number] [place] [address] 06992- 7802 Oct, [facility] [id number] [place] [address] 20160- 4693 Oct, [facility] [id number] [place] [address] 85268- 7362 Oct, [facility] [id number] [place] [address] 41985- 6704 Sep, [facility] [id number] [place] [address] 51850- 1482 Sep, Primary insomnia F51.01 [facility] [id number] [place] [address] 32430- 6370 Sep, Primary insomnia F51.01 [facility] [id number] [place] [address] 75904- 6968 Sep, [facility] [id number] [place] [address] 49006- 1370 Aug, [facility] [id number] [place] [address] 15665- 9308 Aug, [facility] [id number] [place] [address] 51183- 7163 Aug, Primary insomnia F51.01 ; Mood disorder F39 ; Nausea and vomiting, unspecified intactability, vomiting of unspecified type R11.2 and Diarrhea R19.7 [facility] [id number] [place] [address] 60959- 8241 Aug, [facility] [id number] [place] [address] 44117- 7787 Aug, Folliculitis L73.9 [facility] [id number] [place] [address] 56692- 7603 Aug, [facility] [id number] [place] [address] 77828- 1736 Aug, [facility] [id number] [place] [address] 80496- 3746 Jul, Folliculitis L73.9 [facility] [id number] [place] [address] 75337- 5750 Jul, [facility] [id number] [place] [address] 62757- 1281 Jun, Folliculitis L73.9 [facility] [id number] [place] [address] 86097- 4903 Jun, [facility] [id number] [place] [address] 23959- 3829 May, Polyneuropathy G62.9 [facility] [id number] [place] [address] 86876- 7495 May, Other specified diseases of anus and rectum K62.89 [address] [facility] [id number] [place] [address] 14479- 4883 May, [facility] [id number] [place] [address] 40454- 3178 May, Primary insomnia F51.01 [facility] [id number] [place] [address] 71190- 0493 May, [facility] [id number] [place] [address] 04181- 7838 May, [facility] [id number] [place] [address] 90671- 1643 Apr, Other specified diseases of anus and rectum K62.89 ; Chronic fatigue R53.82 ; Urinary tract infection, site not specified N39.0 and Enterococcus as the cause of diseases classified elsewhere B95.2 [facility] [id number] [place] [address] 63517- 6168 16 Apr, 2015 [facility] [id number] [place] [address] 60681- 9169 Apr, [facility] [id number] [place] [address] 36259- 8231 14 Apr, 2015 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 [facility] [address] [facility] [id number], [place] [address]- 5626 05 Apr, 2015 [facility] [id number], [place] [address] 2546 26 Mar, 2015 [facility] [address] [facility] [id number] [place] [address] 58735 2546 23 Mar, 2015 [facility] [address] [facility] [id number] [place] [address] 35160 2546 17 Mar, 2015 [facility] [id number] [place] [address] 79945- 0693 14 Mar, 2015 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 [facility] [id number] [place] [address] 39840- 3956 12 Mar, 2015 [facility] [id number] [place] [address] 70168- 9816 11 Mar, 2015 [facility] [id number] [place] [address] 16382- 9596 11 Mar, 2015 [facility] [id number] [place] [address] 89176- 8563 Mar, [facility] [address], [place] [address] 2542 Feb, [facility] [address], [place] [address]- 2544 Feb, [facility] [address], [place] [address] 2543 Feb, [facility] [id number] [place] [address] 62318 2546 Jan, [facility] [address] [address] 2545 Jan, Nausea 787.02 and Neuropathy 355.9 [facility] [id number] [place] [address]- 7670 Jan, [facility] [address] [id number] [place] [address]- 4286 Jan, [facility] [place] [facility] [address] [facility] [id number] [place] [address] 2546 Jan, [facility] [address] [id number] [place] [id number] Jan, Dental examination V72.2 [facility] [place] [facility] [address] [id number] [place] [address] 2546 Jan, [facility] [place] [facility] [address] [id number] [place] [address]- 4835 Dec, [facility] [place] [facility] [address] [facility] [id number] [place] [address]- 4736 Dec, [facility] [address] [facility] [id number] [place] [address]- 1781 Dec, Neuropathy 355.9 [facility] [place] [facility] [address] [id number] [place] [address]- 1188 November, [facility] [address] [facility] [id number] [place] 9427 November, [facility] [place] [facility] [address] [facility] [id number] [place] [address] November, [facility] [place] [facility] [address] [facility] [id number], [place] [address] Oct, [facility] [place] [facility] [address] [id number] [place] [address] Oct, [facility] [place] [facility] [address] [id number] [place] [address] Sep, [facility] [place] [facility] [address] [id number] [place] [address] Sep, [facility] [place] [facility] [address] [facility] [id number] [place] [address] Sep, [facility] [place] [facility] [address] [id number] [place] [address] Sep, [facility] [place] [facility] [address] [id number] [place] [address] Sep, [facility] [place] [facility] [address] [facility] [id number] [place] [address] Sep, [facility] [place] [facility] [address] [id number] [place] [address] Sep, [facility] [place] [facility] [address] [id number] [place] [address] Sep, [facility] [place] [facility] [address] [id number] [place] [address] Aug, 2014 [facility] [place] [facility] [address] [facility] [id number] [place] [address] Aug, 2014 [facility] [place] [facility] [address] [facility] [id number] [place] [address] Aug, 2014 [facility] [place] [facility] [address] [facility] [id number] [place] [address] Aug, 2014 [facility] [place] [facility] [address] [facility] [id number] [place] [address] Aug, [facility] [place] [facility] [address] [facility] [id number] [place] [address] Aug, 2014 [facility] [place] [facility] [address] [facility] [id number] [place] [address] Aug, 2014 [facility] [place] [facility] [address] [facility] [id number] [place] [address] Aug, [facility] [place] [facility] [address] [facility] [id number] [place] [address] Jul, [facility] [place] [facility] [address] [facility] [id number] [place] [address] Jul, [facility] [place] [facility] [address] [id number] [place] [address] Jun, [facility] [place] [facility] [address] [id number] [place] [address] Jun, [facility] [place] [facility] [address] [id number] [place] [address] Jun, [facility] [place] [facility] [address] [id number] [place] [address] Jun, [facility] [place] [facility] [address] [id number] [place] [address] Jun, [facility] [place] [facility] [address] [id number] [place] [address] Jun, [facility] [place] [facility] [address] [id number] [place] [address] Jun, [facility] [place] [facility] [address] [id number] [place] [address] Jun, [facility] [place] [facility] [address] [id number] [place] [address] Jun, [facility] [place] [facility] [address] [id number] [place] [address] Jun, [facility] [place] [facility] [address] [id number] [place] [address] Jun, [facility] [facility] [address] [id number] [place] [address] May, [facility] [place] [facility] [address] [id number] [place] [address] May, [facility] [place] [facility] [address] [id number] [place] [address] May, [facility] [place] [facility] [address] [id number] [place] [address] May, [facility] [place] [facility] [address] [id number] [place] [address] May, [facility] [place] [facility] [address] [id number] [place] [address] May, [facility] [place] [facility] [address] [id number] [place] [address] May, [facility] [place] [facility] [address] [id number] [place] [address] May, [facility] [place] [facility] [address] [id number] [place] [address] May, [facility] [place] [facility] [address] [id number] [place] [address] Apr, [facility] [place] [facility] [address] [id number] [place] [address] 8973 Apr, [facility] [place] [facility] [address] [id number] [place] [address] 8[address] Apr, [facility] [place] [facility] [address] [id number] [place] [address] 4764 Apr, [facility] [place] [facility] [address] [id number] [place] [address] 8858 Apr, [facility] [place] [facility] [address] [id number] [place] [address] Mar, [facility] [place] [facility] [address] [id number] [place] [address] Mar, [facility] [place] [address] [id number], [place] [address] Feb, [facility] [place] [facility] [address] [id number] [place] [address] 5[address] Feb, [facility] [place] [facility] [address] [id number] [place] [address]- [address] Feb, [facility] [place] [address] [id number] [place] [address] 240[address] Feb, [facility] [place] [address] [id number] [place] [address]- 30[address] Feb, [facility] [place] [facility] [address] [id number] [place] [address]- 268[address] Feb, [facility] [place] [address] [id number] [place] [address] Jan, [facility] [place] [facility] [address] [id number] [place] [address]- 2486 Jan, [facility] [place] [facility] [address] [id number] [place] [address]- [address] Jan, [facility] [address] [id number] [place] [address] 0139 Jan, [facility] [address] [id number] [place] [address]- [address]376 Jan, [facility] [address] [id number] [place] [address] 6115 Jan, [facility] [address] [id number] [place] [address]- 7771 Jan, [facility] [address] [id number] [place] [address]- 7091 Jan, [facility] [place] [facility] [address] [id number] [place] [address] 69[address] Jan, [facility] [place] [address] [id number] [place] [address]- 5[address] Jan, [facility] [address] [id number] [place] [address] 8439 Jan, [facility] [address] [id number] [place] [address] 6079 Dec, [facility] [address] [id number] [place] [address]- 9443 Dec, [facility] [address] [id number] [place] [address]- 2024 Dec, [facility] [address] [id number] [place] [address] 9503 Dec, [facility] [address] [id number] [place] [address] 8616 Dec, [facility] [address] [id number] [place] [address] 2624 Dec, [facility] [address] [id number] [place] [address]- 7396 November, [facility] [address] [id number] [place] [address]- 4661 November, [facility] [address] [id number] [place] [address] 4409 November, [facility] [address] [id number] [place] [address] 390[address] November, [facility] [address] [id number] [place] [address]- 6093 November, [facility] [address] [id number] [place] [address] 99[address] November, [facility] [address] [id number] [place] [address]- 7567 Oct, [facility] [address] [id number] [place] [address] 7673 Oct, [facility] [address] [id number] [place] [address]- 2356 Oct, [facility] [address] [id number] [place] [address]- 2582 Oct, [facility] [address] [id number] [place] [address]- 4183 Sep, [facility] [address] [id number] [place] [address]- 4323 Sep, [facility] [address] [id number], [place] [address] Sep, [facility] [address] [id number] [place] [address]- 6819 Sep, [facility] [address] [id number] [place] [address]- 8056 Sep, [facility] [address] [id number] [place] [address]- 5982 Aug, [facility] [address] [id number] [place] [address]- 7012 Aug, [facility] [address] [id number] [place] [address]- 2414 Aug, [facility] [address] [id number] [place] [address]- 3799 Aug, [facility] [address] [facility] [id number], [place] [address] Aug, [facility] [address] [place] [id number] May, [facility] [address] [id number], [place] [address] 8586 May, [facility] [address] [id number], [place] [address]- 7310 May, [facility] [address] [id number], [place] [address] 6192 May, [facility] [address] [id number], [place] [address] 2281 May, [facility] [address] [id number], [place] [address]- 2895 Apr, [facility] [address] [id number], [place] [address]- 9134 Apr, [facility] [address] [id number], [place] [address]- 2666 Apr, [facility] [address] [id number] [place] [address]- 7553 Apr, [facility] [address] [id number] [place] [address]- 3129 Apr, [facility] [address] [id number] [place] [address]- 1846 Apr, [facility] [address] [id number] [place] [address]- 8609 Apr, [facility] [address] [id number] [place] [address]- 5451 Mar, [facility] [address] [id number] [place] [address]- 5687 Mar, [facility] [address] [id number] [place] [address]- 3762 24 Mar, 2013 [facility] [address] [id number] [place] [address]- 7772 16 Mar, 2013 [facility] [address] [id number] [place] [address]- 6933 Mar, [facility] [address] [id number] [place] [address]- 1910 Mar, [facility] [address] [id number] [place] [address]- 2826 Feb, [facility] [address] [id number] [place] [address]- 6488 Feb, [facility] [address] [id number] [place] [address]- 2719 Feb, [facility] [address] [id number] [place] [address]- 6681 Feb, [facility] [address] [id number] [place] [address]- 2878 Feb, [facility] [address] [id number] [place] [address]- 8441 Feb, [facility] [address] [id number] [place] [address]- 2786 Jan, [facility] [address] [id number] [place] [address]- 5249 Dec, [facility] [address] [id number] [place] [address]- 0121 Dec, [facility] [address] [id number] [place] [address]- 8397 Dec, [facility] [address] [id number] [place] [address]- 0179 Dec, [facility] [address] [id number] [place] [address]- 5085 Dec, [facility] [address] [id number] [place] [address]- 4266 Dec, [facility] [address] [id number] [place] [address]- 3858 Dec, [facility] [address] [id number] [place] [address]- 7877 Dec, [facility] [address] [id number] [place] [address]- 9068 Dec, [facility] [address] [id number] [place] [address]- 9443 November, [facility] [address] [id number], [place] [address]- 7458 November, [facility] [address] [id number] [place] [address]- 4113 Oct, [facility] [address] [id number] [place] [address]- 6723 Sep, [facility] [address] [id number] [place] [address]- 9429 Sep, [facility] [address] [id number], [place] [address]- 9780 15 Sep, 2012 [facility] [id number] [address] [address] Sep, [facility] [id number], [place] [address] 7215 Aug, [facility] [id number], [place] [address]- 0966 Aug, [facility] [id number] [address] Jul, [facility] [id number] [place] [address]- 9300 Jul, [facility] [id number] [address] Jul, [facility] [id number] [address] Sep, [facility] [id number], [place] [address]- 2957 Sep, [facility] [id number] [address] Sep, IMMUNIZATIONS No Known Immunizations SOCIAL HISTORY Never Assessed REASON FOR VISIT Lab (walk-in) CBrumbackRN PLAN OF CARE VITAL SIGNS Height 67 in 2017-05-15 Weight 197 lbs 2017-05-15 BMI 30.85 kg/m2 2017-05-15 MEDICATIONS Unknown Medications RESULTS Name Result Date Reference Range [employer] 2017-05-15 PROCEDURES Procedure Date Ordered Result Body Site No Charge May 15, 2017 INSTRUCTIONS MEDICATIONS ADMINISTERED No Known Medications [...]
--- OUTSIDE RECORDS SUMMARY | 2018-06-09 17:39 | XMS REPORT ---
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 426954657 Problem Incontinence of feces, unspecified fecal incontinence type R15.9 Active 17114472 Problem Chronic fatigue, unspecified R53.82 Active 404780569 Problem Hydronephrosis with ureteral stricture, not elsewhere classified N13.1 Active 69327101 Problem Malignant neoplasm of colon, unspecified part of colon C18.9 Active 705133213 Problem Polyneuropathy G62.9 Active 46261120 Problem Mood disorder F39 Active 18516196 Problem Hypertension, benign I10 Active 46835937 Problem Anxiety F41.9 Active 97745000 Problem Neuropathy G62.9 Active 778470664 ALLERGIES Substance Reaction Event Type Date Status Morphine Unknown Drug Allergy Dec, Active Codeine Unknown Drug Allergy Dec, Active ENCOUNTERS Encounter Location Date Diagnosis [facility] [id number] [address] November, Medicare annual wellness visit, initial Z00.00 [facility] [address] [id number] [address] Oct, [facility] [id number] [place] [address] 64413- 7390 Sep, [facility] [address] [address] Sep, Polyneuropathy G62.9 [facility] [id number] [place] [address] 65943- 0942 Aug, Polyneuropathy G62.9 [facility] [address] 8[address]62- 3459 Aug, Malignant neoplasm of colon, unspecified part of colon C18.9 and Polyneuropathy G62.9 [facility] [address] [address]89- 9504 Aug, Neuropathy G62.9 and Polyneuropathy G62.9 [facility] [address] [address]80- 5674 Jul, Encounter for drug screening Z02.83 [facility] [address] 15094- 4076 Jul, Polyneuropathy G62.9 [facility] [address] 54233- 9582 Jul, [facility] [address] 19585- 9859 Jul, Neuropathy G62.9 and Anxiety F41.9 [facility] [address] 97878- 1039 Jul, [facility] [id number] [place] [address] 87609- 2890 Jul, [facility] [id number] [place] [address] 49840- 9490 Jul, [facility] [id number] [place] [address] 81895- 4456 Jul, Polyneuropathy G62.9 [facility] [id number] [place] [address] 55294- 2389 Jul, [facility] [id number] [place] [address] 66270- 5580 07 Jun, 2017 [facility] [address] 41366- 6551 Jun, [facility] [address] [address] Jun, [facility] [id number] [address] Jun, Encounter for dental examination Z01.20 [facility] [id number] [place] [address] 26996- 3166 Jun, Polyneuropathy G62.9 and Anxiety F41.9 [facility] [id number] [place] [address] 73909- 8093 Jun, [facility] [id number], [place] [address] May, Dental examination Z01.20 [facility] [id number] [place] [address] 21062- 9774 May, Polyneuropathy G62.9 [facility] [id number] [place] [address] 84815- 3201 Apr, Polyneuropathy G62.9 [facility] [id number] [place] [address] 97815- 6497 Apr, Polyneuropathy G62.9 [facility] [id number] [place] [address] 04149- 5417 Apr, Hypertension, benign I10 ; Polyneuropathy G62.9 and Anxiety F41.9 [facility] [id number] [place] [address] 82945- 5505 Apr, Primary insomnia F51.01 and Polyneuropathy G62.9 [facility] [id number] [place] [address] 64664- 0880 Apr, Primary insomnia F51.01 and Polyneuropathy G62.9 [facility] [id number] [place] [address] 72602- 4187 Mar, Primary insomnia F51.01 [facility] [address] [facility] [id number] [place] [address] 2546 Mar, [facility] [address] [place] [address] 2546 Mar, Polyneuropathy G62.9 [facility] [address] [id number] [place] [address] 2946 Feb, Primary insomnia F51.01 [facility] [address] [facility] [id number] [place] [address]- 1829 Feb, [facility] [address] [facility] [id number] [place] [address]- 8906 Feb, [facility] [address] [id number] [place] [address]- 6133 Feb, Polyneuropathy G62.9 [facility] [id number] [place] [address], [place] [address]- 1366 Feb, Primary insomnia F51.01 [facility] [address] [place] [address]- 2174 Jan, [facility] [address] [place] [address]- 7131 Jan, [facility] [address] [place] [address]- 6516 Dec, [facility] [address] [place] [address]- 4209 Dec, Primary insomnia F51.01 [facility] [address] [id number] [place] [address]- 9954 Dec, Primary insomnia F51.01 [facility] [place] [facility] [address] [id number] [place] [address]- 8946 Dec, [facility] [place] [facility] [address] [place] [address]- 6576 Dec, [facility] [id number] [place] [address] 10665- 3975 Dec, [facility] [id number] [place] [address] 95018- 2650 Dec, [facility] [id number] [place] [address] 374132- 9577 November, Primary insomnia F51.01 and Polyneuropathy G62.9 [facility] [id number] [place] [address] 21367- 5665 November, [facility] [id number] [place] [address] 93987- 7219 November, Abdominal pain, left lower quadrant R10.32 [facility] [id number] [place] [address] 41627- 4320 November, [facility] [id number] [place] [address] 03981- 5610 Oct, [facility] [id number] [place] [address] 99304- 7583 Oct, Abdominal pain, left lower quadrant R10.32 ; 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 and Neuropathy G62.9 [facility] [id number] [place] [address] 67697- 2377 Oct, [facility] [address] [address]- 0859 Sep, [facility] [id number] [place] [address] [id number] Sep, [facility] [id number] [place] [address] 37362- 8970 Sep, [facility] [id number] [place] [address] 06042- 1987 Aug, [facility] [id number] [address] 9399 Aug, [facility] [id number] [place] [address] 88644- 9834 Aug, Abdominal pain, left lower quadrant R10.32 ; Neuropathy G62.9 and Anxiety F41.9 [facility] [address] [place] [address] Jul, [facility] [id number] [place] [address] 74080- 8109 Jul, [facility] [id number] [place] [address] 89929 -6331 Jul, [facility] [id number] [place] [address] 91472- 9922 Jul, [facility] [id number] [place] [address] 61277- 0970 Jul, [facility] [id number] [place] [address] 14036- 2348 Jun, [facility] [id number] [place] [address] 72181- 0213 May, [facility] [id number] [place] [address] 75101- 4157 May, [facility] [id number] [place] [address] 43050- 1037 Apr, [facility] [id number] [place] [address] 82970- 8455 Apr, Muscle spasms of both lower extremities M62.838 and Cellulitis, unspecified cellulitis site L03.90 [facility] [id number] [place] [address] 65708- 4712 Apr, [facility] [id number] [place] [address] 31173- 0450 Mar, Generalized abdominal pain R10.84 [facility] [id number] [place] [address] 21333- 1483 Mar, [facility] [id number] [place] [address] 90623- 3088 14 Mar, 2016 [facility] [address], [place] [address]- 7389 14 Mar, 2016 [facility] [address], [place] [address]- 1538 13 Mar, 2016 [facility] [address], [place] [address]- 9632 12 Mar, 2016 [facility] [id number] [place] [address] 31663- 9769 09 Mar, 2016 [facility] [id number] [place] [address] 83136- 3556 06 Mar, 2016 [facility] [id number] [place] [address] 30255- 4672 Feb, Other specified diseases of anus and rectum K62.89 [facility] [id number] [place] [address] 09106- 7532 Feb, [facility] [id number] [place] [address] 34436- 0271 Feb, Dizziness R42 [facility] [id number] [place] [address] 54897- 7838 Feb, [facility] [address], [place] [address]- 5933 Jan, Polyneuropathy G62.9 [facility] [address], [place] [address]- 4736 Jan, Other specified diseases of anus and rectum K62.89 [facility] [address], [place] [address]- 2772 Jan, [facility] [address], [place] [address]9920 Jan, [facility] [address], [place] [address]- 7924 Jan, [facility] [address] [id number] [place] [address]- 3235 Jan, Dizziness R42 [facility] [id number] [place] [address], [place] [address]- 0016 Dec, [facility] [address] [facility] [id number] [place] [address]- 1629 Dec, [facility] [address] [facility] [id number] [place] [address], [place] [address]- 2816 Dec, [facility] [address] [facility] [id number] [place] [address]- 3720 Dec, Dizziness R42 [facility] [address] [facility] [id number] [place] [address], [place] [address]- 5920 November, [facility] [address] [facility] [id number] [place] [address]- 3790 Oct, [facility] [address] [facility] [id number] [place] [address], [place] [address]- 6808 Oct, [facility] [address] [facility] [id number] [place] [address]- 1206 Oct, [facility] [address] [place] [address]- 4511 Oct, [facility] [address] [facility] [id number] [place] [address]- 5429 Sep, [facility] [address] [facility] [id number] [place] [address]- 0647 Sep, Primary insomnia F51.01 [facility] [place] [facility] [address] [facility] [id number] [place] [address]- 9013 Sep, Primary insomnia F51.01 [facility] [place] [facility] [address] [facility] [id number] [place]- 4275 Sep, [facility] [place] [facility] [address] [facility] [id number] [place] [address]- 9881 Aug, [facility] [place] [facility] [id number] [place] [address] 77112- 4765 Aug, [facility] [id number] [place] [address] 17463- 4884 Aug, Primary insomnia F51.01 ; Mood disorder F39 ; Nausea and vomiting, unspecified intactability, vomiting of unspecified type R11.2 and Diarrhea R19.7 [facility] [address] 40729- 6248 Aug, [facility] [id number] [place] [address] 22782- 9015 Aug, Folliculitis L73.9 [facility] [id number] [place] [address] 04815- 8133 Aug, [facility] [id number] [place] [address] 64604- 4593 Aug, [facility] [id number] [place] [address] 53468- 8286 Jul, Folliculitis L73.9 [facility] [id number] [place] [address] 34057- 9310 Jul, [facility] [id number] [place] [address] 91300- 5342 Jun, Folliculitis L73.9 [facility] [id number] [place] [address] 86865- 0789 Jun, [facility] [id number] [place] [address] 84569- 3945 May, Polyneuropathy G62.9 [facility] [id number] [place] [address] 72509- 9836 May, Other specified diseases of anus and rectum K62.89 [facility] [id number] [place] [address] 08408- 1484 May, [facility] [id number] [address]- 1603 13 May, 2015 Primary insomnia F51.01 [facility] [id number] [place] [address] 74700- 0144 May, [facility] [id number] [place] [address] 77779- 2970 May, [facility] [id number] [place] [address] 33938- 0512 Apr, Other specified diseases of anus and rectum K62.89 ; Chronic fatigue R53.82 ; Urinary tract infection, site not specified N39.0 and Enterococcus as the cause of diseases classified elsewhere B95.2 [facility] [id number] [place] [address] 57953- 1503 16 Apr, 2015 [facility] [id number] [place] [address] 10391- 2094 15 Apr, 2015 [facility] [id number] [place] [address] 89892- 5236 14 Apr, 2015 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 [facility] [id number] [place] [address] 64102- 1684 05 Apr, 2015 [facility] [id number] [place] [address] 48105- 9570 26 Mar, 2015 [facility] [id number] [place] [address] 56818- 5553 23 Mar, 2015 [facility] [id number] [place] [address] 92898- 1008 17 Mar, 2015 [facility] [id number] [place] [address] 61163- 9037 14 Mar, 2015 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 [facility] [id number] [place] [address] 22845- 4739 12 Mar, 2015 [facility] [id number] [place] [address] 74196- 4402 Mar, [facility] [address] [facility] [id number] [address]- 4164 Mar, [facility] [address] [facility] [id number], [place] [address]- 2431 Mar, [facility] [id number] [address]- 8547 Feb, [facility] [address] [facility] [id number][place] [address]- 5702 Feb, [facility] [address] [facility] [id number][place] [address]- 3870 Feb, [facility] [id number] [place] [address] 36085- 6713 Jan, [facility] [id number] [place] [address] 59401- 6530 Jan, Nausea 787.02 and Neuropathy 355.9 [facility] [address], [place] [address]- 7382 Jan, [facility] [id number] [place] [address] 351429- 9882 Jan, [facility] [address] [address]- 2611 Jan, [facility] [id number] [id number] Jan, Dental examination V72.2 [facility] [address], [place] [address]- 4246 Jan, [facility] [address], [place] [address]- 4769 Dec, [facility] [address], [place] [address]- 0426 Dec, [facility] [address], [place] [address]- 2181 Dec, Neuropathy 355.9 [facility] [place] [facility] [address] [id number] [place] [address]- 6618 November, [facility] [place] [facility] [address] [id number] [place] [address]- 3186 November, [facility] [place] [facility] [address] [facility] [id number] [place] 6627 November, [facility] [place] [facility] [address] [id number] [place] [address]- 3943 Oct, [facility] [place] [facility] [address] [id number] [place] [address]- 7533 Oct, [facility] [place] [facility] [address] [id number] [place] [address]- 5826 Sep, [facility] [place] [facility] [address] [facility] [id number] [place] [address]- 6088 Sep, [facility] [place] [facility] [address] [id number] [place] [address]- 0817 Sep, [facility] [place] [facility] [address] [id number] [place] [address]- 0327 Sep, [facility] [place] [facility] [address] [facility] [id number] [place] [address]- 2547 Sep, [facility] [place] [facility] [address] [id number][place] [address]- 0775 Sep, [facility] [place] [facility] [address] [id number][place] [address]- 0990 Sep, [facility] [place] [facility] [address] [id number] [place] [address]- 7846 Sep, [facility] [place] [facility] [address] [facility] [id number] 5389 Aug, [facility] [place] [facility] [address] [facility] [id number] [place] [address]- 1950 Aug, [facility] [place] [facility] [address] [id number] [place] [address]- 4489 Aug, 2014 [facility] [place] [facility] [address] [id number] [place] [address]- 2647 Aug, 2014 [facility] [place] [facility] [address] [id number] [place] [address]- 1226 Aug, 2014 [facility] [place] [facility] [address] [id number] [place] [address]- 2506 Aug, 2014 [facility] [place] [facility] [address] [id number] [place] [address]- 5490 Aug, 2014 [facility] [place] [facility] [address] [id number] [place] [address]- 3029 Aug, 2014 [facility] [place] [facility] [address] [id number] [place] [address]- 2752 Jul, [facility] [place] [facility] [address] [id number] [place] [address]- 7849 Jul, [facility] [place] [facility] [address] [id number] [place] [address]- 9586 Jun, [facility] [place] [facility] [address] [id number] [place] [address] Jun, [facility] [place] [facility] [address] [id number] [place] [address] Jun, [facility] [place] [facility] [address] [id number] [place] [address] Jun, [facility] [place] [facility] [address] [id number] [place] [address] Jun, [facility] [place] [facility] [address] [id number] [place] [address] Jun, [facility] [place] [facility] [address] [id number] [place] [address] Jun, [facility] [place] [facility] [address] [id number] [place] [address] Jun, [facility] [place] [facility] [address] [id number] [place] [address] Jun, [facility] [place] [facility] [address] [id number] [place] [address] Jun, [facility] [place] [facility] [address] [id number] [place] [address] Jun, [facility] [place] [facility] [address] [id number] [place] [address] May, [facility] [place] [facility] [address] [id number] [place] [address] May, [facility] [place] [facility] [address] [id number] [place] [address] May, [facility] [place] [facility] [address] [id number] [place] [address] May, [facility] [place] [facility] [address] [id number] [place] [address] May, [facility] [place] [facility] [address] [id number] [place] [address] May, [facility] [place] [facility] [address] [id number] [place] [address] May, [facility] [place] [facility] [address] [id number][place] [address] May, [facility] [place] [facility] [address] [id number][place] [address] May, [facility] [place] [facility] [address] [id number] [place] [address] Apr, [facility] [place] [facility] [address] [id number] [place] [address] Apr, [facility] [place] [facility] [address] [id number][place] [address] Apr, [facility] [place] [facility] [address] [id number] [place] [address] Apr, [facility] [place] [facility] [address] [id number] [place] [address] Apr, [facility] [place] [facility] [address] [id number] [place] [address] Mar, [facility] [place] [facility] [address] [id number] [place] [address] Mar, [facility] [place] [facility] [address] [id number] [place] [address] Feb, [facility] [place] [facility] [address] [id number] [place] [address] Feb, [facility] [place] [facility] [address] [id number] [place] [address] Feb, [facility] [place] [facility] [address] [id number] [place] [address] Feb, [facility] [place] [facility] [address] [id number] [place] [address] Feb, [facility] [place] [facility] [address] [id number] [place] [address] Feb, [facility] [place] [facility] [address] [id number] [place] [address] Jan, [facility] [place] [facility] [address] [id number] [place] [address] Jan, [facility] [place] [facility] [address] [id number] [place] [address] Jan, [facility] [place] [facility] [address] [id number] [place] [address] Jan, [facility] [place] [facility] [address] [id number] [place] [address] Jan, [facility] [place] [facility] [address] [id number] [place] [address] Jan, [facility] [place] [facility] [address] [id number] [place] [address] Jan, [facility] [place] [facility] [address] [id number] [place] [address] Jan, [facility] [place] [facility] [address] [id number] [place] [address] Jan, [facility] [place] [facility] [address] [id number] [place] [address] Jan, [facility] [place] [facility] [address] [id number] [place] [address] Jan, [facility] [place] [facility] [address] [id number] [place] [address] Dec, [facility] [place] [facility] [address] [id number] [place] [address] Dec, [facility] [place] [facility] [address] [id number] [place] [address] Dec, [facility] [place] [facility] [address] [id number] [place] [address] Dec, [facility] [place] [facility] [address] [id number] [place] [address] Dec, [facility] [place] [facility] [address] [id number] [place] [address] Dec, [facility] [place] [facility] [address] [id number] [place] [address] November, [facility] [place] [facility] [address] [id number] [place] [address] November, [facility] [place] [facility] [address] [id number] [place] [address] November, [facility] [place] [facility] [address] [id number] [place] [address] November, [facility] [place] [facility] [address] [id number] [place] [address] November, [facility] [address] [id number] [place] [address] November, [facility] [place] [facility] [address] [id number] [place] [address] Oct, [facility] [place] [facility] [address] [id number] [place] [address] Oct, [facility] [place] [facility] [address] [id number] [place] [address] Oct, [facility] [place] [facility] [address] [id number] [place] [address] Oct, [facility] [place] [facility] [address] [id number] [place] [address] Sep, [facility] [place] [facility] [address] [id number] [place] [address] Sep, [facility] [place] [facility] [address] [id number] [place] [address] Sep, [facility] [place] [facility] [address] [id number] [place] [address] Sep, [facility] [place] [facility] [address] [id number] [place] [address] Sep, [facility] [place] [facility] [address] [id number] [place] [address] Aug, [facility] [place] [facility] [address] [id number] [place] [address] Aug, [facility] [place] [facility] [address] [id number] [place] [address] Aug, [facility] [place] [facility] [address] [id number] [place] [address] 17 Aug, 2013 [facility] [place] [facility] [address] [id number] [place] [address] 14 Aug, 2013 [facility] [address] [place] [id number] May, [facility] [address] [id number] [place] [address] May, [facility] [address] [id number] [place] [address] May, [facility] [address] [id number] [place] [address] May, [facility] [address] [id number] [place] [address] May, [facility] [address] [id number] [place] [address] Apr, [facility] [address] [id number] [place] [address] Apr, [facility] [address] [id number] [place] [address] Apr, [facility] [address] [id number] [place] [address] Apr, [facility] [address] [id number] [place] [address] Apr, [facility] [address] [id number] [place] [address] Apr, [facility] [address] [id number] [place] [address] Apr, [facility] [address] [id number] [place] [address] 28 Mar, 2013 [facility] [address] [id number] [place] [address] 25 Mar, 2013 [facility] [address] [id number] [place] [address] 24 Mar, 2013 [facility] [address] [id number] [place] [address]- 1839 16 Mar, 2013 [facility] [address] [id number] [place] [address]- [address] Mar, [facility] [place] [facility] [address] [id number] [place] [address] Mar, [facility] [place] [facility] [address] [id number] [place] [address] Feb, [facility] [place] [facility] [address] [id number] [place] [address] 8088 Feb, [facility] [place] [facility] [address] [id number] [place] [address]- [address] Feb, [facility] [place] [facility] [address] [id number] [place] [address]- [address]28 Feb, [facility] [place] [facility] [address] [id number] [place] [address] Feb, [facility] [place] [facility] [address] [id number] [place] [address]- [address] Feb, [facility] [place] [facility] [address] [id number] [place] [address] Jan, [facility] [place] [facility] [address] [id number] [place] [address] Dec, [facility] [place] [facility] [address] [id number] [place] [address] 118[address] Dec, [facility] [place] [facility] [address] [id number] [place] [address]- [address] Dec, [facility] [place] [facility] [address] [id number] [place] [address] Dec, [facility] [place] [facility] [address] [id number] [place] [address] Dec, [facility] [place] [facility] [address] [id number] [place] [address]- 69[address] Dec, [facility] [place] [facility] [address] [id number] [address] Dec, [facility] [address] [id number] [place] [address]- [address] Dec, [facility] [address] [id number] [place] [address] Dec, [facility] [address] [id number] [place] [address]- [address] November, [facility] [address] [id number] [place] [address]- 59[address] November, [facility] [address] [id number] [place] [address]- [address] Oct, [facility] [address] [id number] [place] [address]- 7310 Sep, [facility] [address] [id number] [place] [address]- 8711 Sep, [facility] [address] [id number] [place] [address]- [address]751 Sep, [facility] [address] [id number] [place] [address]- 7847 Sep, [facility] [address] [id number] [place] [address]- [address]207 Aug, [facility] [address] [id number] [place] [address]- [address] Aug, [facility] [place] [facility] [address] [id number] [place] [address]- 6[address] Jul, [facility] [place] [facility] [address] [id number] [place] [address]- 7547 Jul, [facility] [place] [facility] [address] [id number] [place] [address]- 1074 Jul, [facility] [place] [facility] [address] [id number] [place] [address]- [address] Sep, [facility] [place] [facility] [address] [facility] [id number] [place] [address] Sep, [facility] [address] [facility] [id number] [place] [address] Sep, IMMUNIZATIONS No Known Immunizations SOCIAL HISTORY Never Assessed REASON FOR VISIT [facility]. PLAN OF CARE Activity Details Follow Up 4 Weeks Reason:insomnia VITAL SIGNS Height 67 in 2017-01-09 Weight 197.1 lbs 2017-01-09 Temperature 97.7 degrees Fahrenheit 2017-01-09 Heart Rate 88 bpm 2017-01-09 Respiratory Rate 18 2017-01-09 BMI 30.87 kg/m2 2017-01-09 Blood pressure systolic 152 mmHg 2017-01-09 Blood pressure diastolic 92 mmHg 2017-01-09 MEDICATIONS Medication Instructions Dosage Frequency Start Date End Date Duration Status Percocet 10-325 MG Orally every 4 hrs 1 tablet 4h Dec, 28 days Active Promethazine HCl 12.5 MG Orally every 6 hrs 1 tablet as needed 6h Active Oxycodone HCl 30 MG Orally 2 times a day 1 tablet as needed 12h Dec, 28 days Active Acyclovir 5 % Externally Five times a day 1 application to affected area Dec, Active Zoloft 100 mg Orally Once a day 1 tablet 24h 30 Active Ambien CR 12.5 MG Orally Once a day 1 tablet at bedtime as needed 24h Dec, Active Wheelchair 1 as directed Dec, Active Lyrica 75 MG Orally 3 times a day 2 capsules 8h Dec, 30 days Active Gabapentin 600 MG 2 tablet 8h Active RESULTS No Results PROCEDURES Procedure Date Ordered Result Body Site [facility] VISIT ESTABLISHED PATIENT January 09, 2017 INSTRUCTIONS MEDICATIONS ADMINISTERED No Known Medications [...]
--- OUTSIDE RECORDS SUMMARY | 2018-06-09 17:40 | XMS REPORT ---
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 Role Phone LINDA BENTLEY Unavailable PROBLEMS Type Condition ICD9-CM Code GKL65-QV Code Onset Dates Condition Status SNOMED Code Problem Abdominal pain, left lower quadrant R10.32 Active 194253464 Problem Mood disorder F39 Active 22966911 Problem Hypertension, benign I10 Active 60209927 Problem Chronic pain syndrome G89.4 Active 470252286 Problem Attention to urostomy Z43.6 Active 705715547 Problem Anxiety F41.9 Active 41175492 Problem Neuropathy G62.9 Active 889124980 Problem Malignant neoplasm of colon, unspecified part of colon C18.9 Active 418868740 Problem Polyneuropathy G62.9 Active 84203893 Problem Incontinence of feces, unspecified fecal incontinence type R15.9 Active 39933997 Problem Chronic fatigue, unspecified R53.82 Active 024932920 Problem Hydronephrosis with ureteral stricture, not elsewhere classified N13.1 Active 47807181 Problem Primary insomnia F51.01 Active 837016756 Problem 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 426682990 ALLERGIES No Information ENCOUNTERS Encounter Location Date Diagnosis [place] [id number] [address] Dec, [place] [id number] [address] November, Medicare annual wellness visit, initial Z00.00 [place] [address] [address] November, Mood disorder F39 [facility] [id number] [address] 8912 Oct, Polyneuropathy G62.9 [place] [id number] [place] [address] 37768- 5444 Oct, [facility] [address] [address]- [address] Oct, [facility] [id number] [place] [address] 18628- 3109 Oct, Mood disorder F39 ; Attention to urostomy Z43.6 ; Chronic pain syndrome G89.4 and Polyneuropathy G62.9 [facility] [id number] [place] [address] 11096- 4086 Sep, Polyneuropathy G62.9 [facility] [address] [address]43- 2132 Sep, [facility] [address] [address]- 9922 Sep, Polyneuropathy G62.9 [facility] [address] [address]03- 7595 Aug, Polyneuropathy G62.9 [facility] [id number] [place] [address] 33064- 9567 Aug, Malignant neoplasm of colon, unspecified part of colon C18.9 and Polyneuropathy G62.9 [facility] [id number] [place] [address] 93781- 1582 Aug, Neuropathy G62.9 and Polyneuropathy G62.9 [facility] [id number] [place] [address] 59133- 3091 Jul, Encounter for drug screening Z02.83 [facility] [address] 6[address]12- 4053 Jul, Polyneuropathy G62.9 [facility] [id number] [place] [address] 92625- 1465 Jul, [facility] [address] 89025- 1396 Jul, Neuropathy G62.9 and Anxiety F41.9 [facility] [id number] [place] [address] 56356- 3094 Jul, [facility] [id number] [place] [address] 16730- 4668 Jul, [facility] [id number] [place] [address] 17247- 1875 Jul, [facility] [id number] [place] [address] 41400- 4009 Jul, Polyneuropathy G62.9 [facility] [id number] [place] [address] 57616- 3008 Jul, [facility] [id number] [place] [address] 35576- 7325 Jun, [facility] [id number] [place] [address] 05974- 3191 Jun, [facility] [id number] [place] [address] 22485- 8519 Jun, [facility] [id number] [place] [address] Jun, Encounter for dental examination Z01.20 [facility] [id number] [place] [address] 40801- 4478 Jun, Polyneuropathy G62.9 and Anxiety F41.9 [facility] [id number] [place] [address] 56641- 2848 Jun, [facility] [id number] [place] [address] May, Dental examination Z01.20 [facility] [id number] [place] [address] 66249- 0438 06 May, 2017 Polyneuropathy G62.9 [facility] [id number] [place] [address] 15010- 5231 Apr, Polyneuropathy G62.9 [facility] [id number] [place] [address] 45720- 8575 Apr, Polyneuropathy G62.9 [facility] [id number] [place] [address] 94586- 1217 Apr, Hypertension, benign I10 ; Polyneuropathy G62.9 and Anxiety F41.9 [facility] [id number] [place] [address] 10410- 1291 Apr, Primary insomnia F51.01 and Polyneuropathy G62.9 [facility] [address] [address]842- 1951 Apr, Primary insomnia F51.01 and Polyneuropathy G62.9 [facility] [id number] [place] [address] 75568- 6935 Mar, Primary insomnia F51.01 [facility] [id number] [place] [address] 92634- 3550 Mar, [facility] [address] 86408- 9929 Mar, Polyneuropathy G62.9 [facility] [id number] [place] [address] 85680- 5607 Feb, Primary insomnia F51.01 [facility] [id number] [place] [address] 22877- 8776 Feb, [facility] [id number] [place] [address] 48458- 0032 Feb, [facility] [id number] [place] [address] 95783- 3510 Feb, Polyneuropathy G62.9 [facility] [id number] [place] [address] 16554- 3377 Feb, Primary insomnia F51.01 [facility] [address] [address] 6[address] Jan, [facility] [address] [place] [address] 7757 Jan, [facility] [id number] [place] [address], [place] [address]- 8039 Dec, [facility] [id number] [place] [address] 78334- 4256 Dec, Primary insomnia F51.01 [facility] [id number] [place] [address] 27273- 8988 Dec, Primary insomnia F51.01 [facility] [id number] [place] [address], [place] [address]- 2501 Dec, [facility] [id number] [place] [address], [place] [address]- 4840 Dec, [facility] [id number] [place] [address] 83604- 8756 Dec, [facility] [address] [place] [address] 28132- 8223 Dec, [facility] [address] [place] [address] 33081- 6364 November, Primary insomnia F51.01 and Polyneuropathy G62.9 [facility] [address] [address] 0030 November, [facility] [address] [address]- 0064 November, Abdominal pain, left lower quadrant R10.32 [facility] [address] [place] [place] [address]- 8050 November, [facility] [address] [address]- 3221 Oct, [facility] [address] [place] [address] 63921- 5440 Oct, Abdominal pain, left lower quadrant R10.32 ; 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 and Neuropathy G62.9 [facility] [id number] [place] [address] 26250- 2497 Oct, [facility] [id number] [place] [address] 43738- 7368 Sep, [facility] [id number] [place] [address] [id number] Sep, [facility] [id number] [place] [address] 36970- 1896 Sep, [facility] [id number] [place] [address] 27553- 2600 Aug, [facility] [id number] [place] [address] 48584- 4548 Aug, [facility] [id number] [place] [address] 89185- 2221 Aug, Abdominal pain, left lower quadrant R10.32 ; Neuropathy G62.9 and Anxiety F41.9 [facility] [address] [place] [address] Jul, [facility] [address] [place] [address] 06653- 4915 Jul, [facility] [address] [place] [address] 14623 -7580 Jul, [facility] [address] [place] [address] 76133- 4662 Jul, [facility] [id number] [place] [address] 29709- 9200 Jul, [facility] [address] [place] [address] 62166- 7756 Jun, [facility] [id number] [place] [address] 24268- 5205 May, [facility] [address] [facility] [id number] [address]- 0231 May, [facility] [id number] [place] [address] 42482- 0581 Apr, [facility] [address] [address]- 9287 Apr, Muscle spasms of both lower extremities M62.838 and Cellulitis, unspecified cellulitis site L03.90 [facility] [address] [facility] [id number] [address]- 3666 Apr, [facility] [id number] [place] [address] 20762- 1372 23 Mar, 2016 Generalized abdominal pain R10.84 [facility] [address] [place] [address] 14065- 2565 20 Mar, 2016 [facility] [address] [place] [address] 43312- 7870 14 Mar, 2016 [facility] [id number] [address]- 0936 14 Mar, 2016 [facility] [address] [address]- 7626 13 Mar, 2016 [facility] [address] [address]- 8485 12 Mar, 2016 [facility] [address] [address]- 3305 09 Mar, 2016 [facility] [id number] [address]- 2547 06 Mar, 2016 [facility] [address] [address]- 0662 17 Feb, 2016 Other specified diseases of anus and rectum K62.89 [facility] [address] [address]- 5465 15 Feb, 2016 [facility] [address] [place] [place] [address]- 6541 Feb, Dizziness R42 [facility] [id number] [place] [address], [place] [address]- 6540 Feb, [facility] [id number] [place] [address] 81070- 2990 Jan, Polyneuropathy G62.9 [facility] [id number] [place] [address], [place] [address]- 2774 Jan, Other specified diseases of anus and rectum K62.89 [facility] [id number] [place] [address], [place] [address]- 0141 Jan, [facility] [id number] [place] [address] 31497 -7308 Jan, [facility] [id number] [place] [address] 71318- 3740 Jan, [facility] [id number] [place] [address] 17244- 3649 Jan, Dizziness R42 [facility] [id number] [place] [address], [place] [address]- 6844 Dec, [facility] [address] [place] [address] 42383- 8812 Dec, [facility] [address] [place] [address] 27904- 0418 Dec, [facility] [id number] [place] [address] 73553- 1774 Dec, Dizziness R42 [facility] [id number] [place] [address], [place] [address]- 0002 November, [facility] [id number] [address]- 8014 Oct, [facility] [id number] [place] [address] 06380- 3286 Oct, [facility] [address] [place] [address] 99281- 6649 Oct, [facility] [id number] [place] [address] 42038- 4014 Oct, [facility] [id number] [place] [address] 38000- 8233 Sep, [facility] [id number] [place] [address] 68394- 1792 Sep, Primary insomnia F51.01 [facility] [id number] [place] [address] 63064- 7397 Sep, Primary insomnia F51.01 [facility] [id number] [place] [address] 41201- 2025 Sep, [facility] [id number] [place] [address] 84245- 2877 Aug, [facility] [id number] [place] [address] 89773- 1151 Aug, [facility] [id number] [place] [address] 10518- 2765 Aug, Primary insomnia F51.01 ; Mood disorder F39 ; Nausea and vomiting, unspecified intactability, vomiting of unspecified type R11.2 and Diarrhea R19.7 [facility] [id number] [place] [address] 20169- 1820 Aug, [facility] [id number] [place] [address] 14432- 4738 Aug, Folliculitis L73.9 [facility] [id number] [place] [address] 43301- 2805 Aug, [facility] [id number] [place] [address] 10495- 4560 Aug, [facility] [id number] [place] [address] 26048- 9268 Jul, Folliculitis L73.9 [facility] [address] [place] [address] 11148- 6064 Jul, [facility] [address] [place] [address] 41317- 8741 Jun, Folliculitis L73.9 [facility] [id number] [place] [address] 31268- 9854 Jun, [facility] [id number] [place] [address] 76545- 3175 May, Polyneuropathy G62.9 [facility] [id number] [place] [address] 57915- 2532 May, Other specified diseases of anus and rectum K62.89 [place] [id number] [place] [address] 63967- 4183 May, [facility] [id number] [place] [address] 81499- 3873 May, Primary insomnia F51.01 [facility] [id number] [place] [address] 60344- 7994 May, [facility] [address] [place] [address] 69268- 6563 May, [facility] [address] [place] [address] 40868- 5251 Apr, Other specified diseases of anus and rectum K62.89 ; Chronic fatigue R53.82 ; Urinary tract infection, site not specified N39.0 and Enterococcus as the cause of diseases classified elsewhere B95.2 [facility] [id number] [place] [address] 98663- 0053 16 Apr, 2015 [facility] [address] [place] [address] 92625- 8913 Apr, [facility] [id number] [place] [address] 60520- 9002 14 Apr, 2015 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 [facility] [address] [facility] [id number] [address]- 1386 05 Apr, 2015 [facility] [id number] [address] 2546 26 Mar, 2015 [facility] [address] [facility] [id number] [place] [address] 34682 2546 23 Mar, 2015 [facility] [address] [facility] [id number] [place] [address] 69372 2546 17 Mar, 2015 [facility] [id number] [place] [address] 43884- 3232 14 Mar, 2015 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 [facility] [id number] [place] [address] 05752- 8106 12 Mar, 2015 [facility] [id number] [place] [address] 72891- 4102 11 Mar, 2015 [facility] [address] [place] [address] 62137- 6963 11 Mar, 2015 [facility] [address] [place] [address] 68032- 1429 Mar, [facility] [address] [address] 2543 Feb, [facility] [address] [address]- 2549 Feb, [facility] [address] [address] 2544 Feb, [facility] [id number] [place] [address] 03219 2546 Jan, [facility] [address] [address] 2542 Jan, Nausea 787.02 and Neuropathy 355.9 [facility] [address] [id number] [place] [address]- 0337 Jan, [facility] [address] [id number] [place] [address]- 5501 Jan, [facility] [place] [facility] [address] [facility] [id number] [place] [address] 2546 Jan, [facility] [address] [id number] [place] [id number] Jan, Dental examination V72.2 [facility] [place] [facility] [address] [id number] [place] [address] 2546 Jan, [facility] [place] [facility] [address] [id number] [place] [address]- 2655 Dec, [facility] [place] [facility] [address] [facility] [id number] [place] [address]- 9476 Dec, [facility] [address] [facility] [id number] [place] [address]- 5561 Dec, Neuropathy 355.9 [facility] [place] [facility] [address] [id number] [place] [address]- 2774 November, [facility] [address] [facility] [id number] [place] 9483 November, [facility] [place] [facility] [address] [facility] [id number] [place] [address]- 9956 November, [facility] [place] [facility] [address] [facility] [id number] [place] [address]- 3334 Oct, [facility] [place] [facility] [address] [id number] [place] [address] 2545 Oct, [facility] [place] [facility] [address] [id number] [place] [address] 2546 Sep, [facility] [place] [facility] [address] [id number] [place] [address] 2546 Sep, [facility] [place] [facility] [address] [facility] [id number] [place] [address]- 2738 Sep, [facility] [place] [facility] [address] [id number] [place] [address]- 5702 Sep, [facility] [place] [facility] [address] [id number] [place] [address]- 2287 Sep, [facility] [place] [facility] [address] [facility] [id number] [place] [address]- 0326 Sep, [facility] [place] [facility] [address] [id number] [place] [address]- 6983 Sep, [facility] [place] [facility] [address] [id number] [place] [address]- 7522 Sep, [facility] [place] [facility] [address] [id number] [place] [address]- 1134 Aug, 2014 [facility] [place] [facility] [address] [facility] [id number] [place] [address]- 9555 Aug, 2014 [facility] [place] [facility] [address] [facility] [id number] [place] [address]- 4832 Aug, 2014 [facility] [place] [facility] [address] [facility] [id number] [place] [address] Aug, 2014 [facility] [place] [facility] [address] [facility] [id number] [place] [address] Aug, [facility] [place] [facility] [address] [facility] [id number] [place] [address] Aug, 2014 [facility] [place] [facility] [address] [facility] [id number] [place] [address] Aug, 2014 [facility] [place] [facility] [address] [facility] [id number] [place] [address] Aug, [facility] [place] [facility] [address] [facility] [id number] [place] [address] Jul, [facility] [place] [facility] [address] [facility] [id number] [place] [address] Jul, [facility] [place] [facility] [address] [id number] [place] [address] Jun, [facility] [place] [facility] [address] [id number] [place] [address] Jun, [facility] [place] [facility] [address] [id number] [place] [address] Jun, [facility] [place] [facility] [address] [id number] [place] [address] Jun, [facility] [place] [facility] [address] [id number] [place] [address] Jun, [facility] [place] [facility] [address] [id number] [place] [address] [address] Jun, [facility] [place] [facility] [address] [id number] [place] [address] Jun, [facility] [place] [facility] [address] [id number] [place] [address] Jun, [facility] [place] [facility] [address] [id number] [place] [address] Jun, [facility] [place] [facility] [address] [id number] [place] [address] Jun, [facility] [place] [facility] [address] [id number] [place] [address] Jun, [facility] [place] [facility] [address] [id number] [place] [address] May, [facility] [place] [facility] [address] [id number] [place] [address] May, [facility] [place] [facility] [address] [id number] [place] [address] May, [facility] [place] [facility] [address] [id number] [place] [address] May, [facility] [place] [facility] [address] [id number] [place] [address] May, [facility] [place] [facility] [address] [id number] [place] [address] May, [facility] [place] [facility] [address] [id number] [place] [address] May, [facility] [place] [facility] [address] [id number] [place] [address] May, [facility] [place] [facility] [address] [id number] [place] [address] May, [facility] [place] [facility] [address] [id number] [place] [address] Apr, [facility] [place] [facility] [address] [id number] [place] [address] Apr, [facility] [place] [facility] [address] [id number] [place] [address] Apr, [facility] [place] [facility] [address] [id number] [place] [address] Apr, [facility] [place] [facility] [address] [id number] [place] [address] Apr, [facility] [place] [facility] [address] [id number] [place] [address] Mar, [facility] [place] [facility] [address] [id number] [place] [address] Mar, [facility] [place] [facility] [address] [id number] [place] [address] Feb, [facility] [place] [facility] [address] [id number] [place] [address] Feb, [facility] [place] [facility] [address] [id number] [place] [address] Feb, [facility] [place] [facility] [address] [id number] [place] [address] Feb, [facility] [place] [facility] [address] [id number] [place] [address] Feb, [facility] [place] [facility] [address] [id number] [place] [address] Feb, [facility] [place] [facility] [address] [id number] [place] [address] Jan, [facility] [place] [facility] [address] [id number] [place] [address] Jan, [facility] [place] [facility] [address] [id number] [place] [address] Jan, [facility] [place] [facility] [address] [id number] [place] [address] Jan, [facility] [place] [facility] [address] [id number] [place] [address] Jan, [facility] [place] [facility] [address] [id number] [place] [address] Jan, [facility] [place] [facility] [address] [id number] [place] [address] Jan, [facility] [place] [facility] [address] [id number] [place] [address] Jan, [facility] [place] [facility] [address] [id number] [place] [address]- 31[address] Jan, [facility] [place] [facility] [address] [id number] [place] [address]- 2626 Jan, [facility] [place] [facility] [address] [id number] [place] [address]103 Jan, [facility] [place] [facility] [address] [id number] [place] [address]- 6287 Dec, [facility] [place] [facility] [address] [id number] [place] [address] 7988 Dec, [facility] [place] [facility] [address] [id number] [place] [address]- [address] Dec, [facility] [place] [facility] [address] [id number] [place] [address] Dec, [facility] [place] [facility] [address] [id number] [place] [address] Dec, [facility] [place] [facility] [address] [id number] [place] [address] Dec, [facility] [place] [facility] [address] [id number] [place] [address]- 67[address] November, [facility] [place] [facility] [address] [id number] [place] [address]- [address] November, [facility] [place] [facility] [address] [id number] [place] [address]- [address] November, [facility] [place] [facility] [address] [id number] [place] [address] 9518 November, [facility] [place] [facility] [address] [id number] [place] [address]- 9585 November, [facility] [place] [facility] [address] [id number] [place] [address] November, [facility] [place] [facility] [address] [id number] [place] [address] Oct, [facility] [place] [facility] [address] [id number] [place] [address] Oct, [facility] [place] [facility] [address] [id number] [place] [address] 6406 Oct, [facility] [place] [facility] [address] [id number] [place] [address]474 Oct, [facility] [place] [facility] [address] [id number] [place] [address] Sep, [facility] [place] [facility] [address] [id number] [place] [address] Sep, [facility] [place] [facility] [address] [id number] [place] [address] Sep, [facility] [address] [id number] [place] [address] 7766 Sep, [facility] [address] [id number] [place] [address] 6629 Sep, [facility] [address] [id number] [place] [address] 1676 Aug, [facility] [address] [id number] [place] [address] 8893 Aug, [facility] [address] [id number] [place] [address] 8203 Aug, [facility] [address] [id number] [place] [address]- 6633 Aug, [facility] [address] [facility] [id number] [place] [address] Aug, [facility] [address] [place] [id number] May, [facility] [address] [id number] [place] [address] May, [facility] [address] [id number] [place] [address] 1588 May, [facility] [address] [id number] [place] [address] May, [facility] [address] [id number] [place] [address] May, [facility] [address] [id number] [place] [address] Apr, [facility] [address] [id number] [place] [address] 8516 Apr, [facility] [address] [id number] [place] [address] 8195 Apr, [facility] [address] [id number] [place] [address]- [address]205 Apr, [facility] [address] [id number] [place] [address]- 5520 Apr, [facility] [place] [facility] [address] [id number] [place] [address]- 5606 Apr, [facility] [address] [id number] [place] [address]- 2358 Apr, [facility] [place] [facility] [address] [id number] [place] [address]- 8360 Mar, [facility] [address] [id number] [place] [address] 2141 Mar, [facility] [place] [facility] [address] [id number] [place] [address]- [address] 24 Mar, 2013 [facility] [address] [id number] [place] [address]- 1693 16 Mar, 2013 [facility] [address] [id number] [place] [address] 4818 Mar, [facility] [place] [facility] [address] [id number] [place] [address]- 2436 Mar, [facility] [address] [id number] [place] [address]- 9279 Feb, [facility] [place] [facility] [address] [id number] [place] [address]- 3142 Feb, [facility] [place] [facility] [address] [id number] [place] [address]- 7538 Feb, [facility] [place] [facility] [address] [id number] [place] [address]- 2799 Feb, [facility] [place] [facility] [address] [id number] [place] [address]- 9174 Feb, [facility] [place] [facility] [address] [id number] [place] [address]- 3682 Feb, [facility] [place] [facility] [address] [id number] [place] [address]- 2390 Jan, [facility] [place] [facility] [address] [id number] [place] [address]- 6648 Dec, [facility] [place] [facility] [address] [id number] [place] [address]- 7325 Dec, [facility] [place] [facility] [address] [id number] [place] [address]- 8390 Dec, [facility] [address] [id number] [place] [address]- 9855 Dec, [facility] [place] [facility] [address] [id number] [place] [address]- 5879 Dec, [facility] [place] [facility] [address] [id number] [place] [address]- 0865 Dec, [facility] [place] [facility] [address] [id number] [place] [address]- 0517 Dec, [facility] [place] [facility] [address] [id number] [place] [address]- 1360 Dec, [facility] [place] [facility] [address] [id number] [place] [address]- 1298 Dec, [facility] [place] [facility] [address] [id number] [place] [address]- 7398 November, [facility] [place] [facility] [address] [id number] [place] [address]- 5528 November, [facility] [place] [facility] [address] [id number] [place] [address]- 2714 Oct, [facility] [place] [facility] [address] [id number] [place] [address]- 4477 Sep, [facility] [place] [facility] [address] [id number] [place] [address]- 9478 Sep, [facility] [place] [facility] [address] [id number] [place] [address]- [address] 15 Sep, 2012 [facility] [id number] [place] [address] Sep, [facility] [id number] [place] [address]- 6777 Aug, [facility] [id number] [place] [address] 3013 Aug, [facility] [id number] [place] [address] Jul, [facility] [id number] [place] [address]149 Jul, [facility] [id number] [place] [address] Jul, [facility] [id number] [place] [address] Sep, [facility] [id number] [place] [address]- 2920 Sep, [facility] [id number] [place] [address]- [address]883 Sep, IMMUNIZATIONS No Known Immunizations SOCIAL HISTORY Never Assessed REASON FOR VISIT urine test PLAN OF CARE VITAL SIGNS MEDICATIONS Unknown Medications RESULTS No Results PROCEDURES Procedure Date Ordered [...]
--- OUTSIDE RECORDS SUMMARY | 2018-06-09 17:40 | XMS REPORT ---
Author Author LINDA BENTLEY Organization [facility] Address [address] [place] [address] Care Team Providers Care Party Supply Specialist Name Role Phone LINDA BENTLEY Unavailable PROBLEMS Type Condition ICD9-CM Code [id number] Code Onset Dates Condition Status SNOMED Code Problem Abdominal pain, left lower quadrant R10.32 Active 090690035 Problem Mood disorder F39 Active 90317227 Problem Hypertension, benign I10 Active 43008336 Problem Chronic pain syndrome G89.4 Active 790321091 Problem Attention to urostomy Z43.6 Active 236520446 Problem Anxiety F41.9 Active 90999649 Problem Neuropathy G62.9 Active 093168904 Problem Malignant neoplasm of colon, unspecified part of colon C18.9 Active 665778053 Problem Polyneuropathy G62.9 Active 10837510 Problem Incontinence of feces, unspecified fecal incontinence type R15.9 Active 35613206 Problem Chronic fatigue, unspecified R53.82 Active 800422531 Problem Hydronephrosis with ureteral stricture, not elsewhere classified N13.1 Active 67122516 Problem Primary insomnia F51.01 Active 977257471 Problem 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 150333092 ALLERGIES No Information ENCOUNTERS Encounter Location Date Diagnosis [facility] [id number] [address] Jan, [facility] [id number] [address] 2066 Dec, Polyneuropathy G62.9 [facility] [id number] [address] 14 Dec, 2017 Mood disorder F39 [facility] [id number] [address] November, Polyneuropathy G62.9 [facility] [address] [address] November, Medicare annual wellness visit, initial Z00.00 [facility] [id number] [place] [address] 18212- 6664 November, Mood disorder F39 [facility] [id number] [place] [address] 01299- 8452 Oct, Polyneuropathy G62.9 [facility] [id number] [place] [address] 73543- 3887 Oct, [facility] [id number] [place] [address] 01685- 8644 Oct, [facility] [id number] [place] [address] 31452- 9947 Oct, Mood disorder F39 ; Attention to urostomy Z43.6 ; Chronic pain syndrome G89.4 and Polyneuropathy G62.9 [facility] [id number] [place] [address] 19389- 1901 Sep, Polyneuropathy G62.9 [facility] [id number] [place] [address] 39012- 0846 Sep, [facility] [id number] [place] [address] 98065- 4251 Sep, Polyneuropathy G62.9 [facility] [id number] [place] [address] 69155- 3124 Aug, Polyneuropathy G62.9 [facility] [id number] [place] [address] 06770- 2748 Aug, Malignant neoplasm of colon, unspecified part of colon C18.9 and Polyneuropathy G62.9 [facility] [address] [address] 7575 Aug, Neuropathy G62.9 and Polyneuropathy G62.9 [facility] [id number] [place] [address] 07027- 0349 Jul, Encounter for drug screening Z02.83 [facility] [id number] [place] [address] 97987- 6527 Jul, Polyneuropathy G62.9 [facility] [id number] [place] [address] 03106- 2476 Jul, [facility] [id number] [place] [address] 33982- 5859 Jul, Neuropathy G62.9 and Anxiety F41.9 [facility] [id number] [place] [address] 24225- 7137 Jul, [facility] [id number] [place] [address] 80207- 1082 Jul, [facility] [id number] [place] [address] 28437- 9492 Jul, [facility] [id number] [place] [address] 64686- 2305 Jul, Polyneuropathy G62.9 [facility] [id number] [place] [address] 74739- 5337 Jul, [facility] [id number] [place] [address] 11814- 8665 Jun, [facility] [id number] [place] [address] 98119- 0247 Jun, [facility] [id number] [place] [address] 66122- 8736 Jun, [facility] [id number] [place] [address] Jun, Encounter for dental examination Z01.20 [facility] [address] [address]- 0934 Jun, Polyneuropathy G62.9 and Anxiety F41.9 [facility] [id number] [address]- 8735 Jun, [facility] [id number] [place] [address] May, Dental examination Z01.20 [facility] [id number] [place] [address] 05682- 8469 May, Polyneuropathy G62.9 [facility] [id number] [place] [address] 87535- 5611 Apr, Polyneuropathy G62.9 [facility] [id number] [place] [address] 66019- 9474 Apr, Polyneuropathy G62.9 [facility] [id number] [place] [address] 24650- 6404 Apr, Hypertension, benign I10 ; Polyneuropathy G62.9 and Anxiety F41.9 [facility] [id number] [place] [address] 61308- 5858 Apr, Primary insomnia F51.01 and Polyneuropathy G62.9 [facility] [id number] [place] [address] 88239- 3297 Apr, Primary insomnia F51.01 and Polyneuropathy G62.9 [facility] [id number] [place] [address] 46295- 2749 Mar, Primary insomnia F51.01 [facility] [id number] [place] [address] 03865- 7163 Mar, [facility] [id number] [place] [address] 42569- 6849 Mar, Polyneuropathy G62.9 [facility] [id number] [place] [address] 05977- 5838 Feb, Primary insomnia F51.01 [facility] [id number] [place] [address] 87616- 3156 Feb, [facility] [address] [place] [address] 4863 Feb, [facility] [address] [place] [address]- 6832 Feb, Polyneuropathy G62.9 [facility] [address] [place] [address]- 6603 Feb, Primary insomnia F51.01 [facility] [address] [place] [address]- 4790 Jan, [facility] [id number] [place] [address]- 2090 Jan, [facility] [address] [place] [address]- 4750 Dec, [facility] [address] [place] [address]- 3576 Dec, Primary insomnia F51.01 [facility] [id number] [place] [address]- 4537 Dec, Primary insomnia F51.01 [facility] [id number] [place] [address]- 7527 Dec, [facility] [address] [place] [address]- 8148 Dec, [facility] [address] [place] [address]- 8531 Dec, [facility] [id number] [place] [address]- 6298 Dec, [facility] [id number] [place] [address]- 1697 November, Primary insomnia F51.01 and Polyneuropathy G62.9 [facility] [address] [place] [address]- 5633 November, [facility] [id number] [place] [address] 70530- 8707 November, Abdominal pain, left lower quadrant R10.32 [facility] [id number] [place] [address] 45105- 0448 November, [facility] [id number] [place] [address] 31447- 0202 Oct, [facility] [id number] [place] [address] 36572- 5440 Oct, Abdominal pain, left lower quadrant R10.32 ; 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 and Neuropathy G62.9 [facility] [address] [address]- 0572 Oct, [facility] [id number] [place] [address] 73819- 7213 Sep, [facility] [address] [id number] Sep, [facility] [id number] [place] [address] 43107- 8753 Sep, [facility] [id number] [place] [address] 95243- 3348 Aug, [facility] [id number] [place] [address] 00727- 8951 Aug, [facility] [id number] [place] [address] 36482- 5820 Aug, Abdominal pain, left lower quadrant R10.32 ; Neuropathy G62.9 and Anxiety F41.9 [facility] [address] [place] [address] Jul, [facility] [id number] [place] [address] 85724934- 0268 Jul, [facility] [id number] [place] [address] 88468 -8655 Jul, [facility] [address] [place] [address]- 4511 Jul, [facility] [address], [place] [address]- 8049 Jul, [facility] [address], [place] [address]- 1615 Jun, [facility] [id number] [place] [address] 755207- 9454 May, [facility] [address], [place] [address]- 2111 May, [facility] [id number] [place] [address] 60282- 0938 Apr, [facility] [address], [place] [address]- 0325 Apr, Muscle spasms of both lower extremities M62.838 and Cellulitis, unspecified cellulitis site L03.90 [facility] [address] [address]- 4308 Apr, [facility] [id number] [place] [address] 91620- 6696 23 Mar, 2016 Generalized abdominal pain R10.84 [facility] [address], [place] [address]- 7362 20 Mar, 2016 [facility] [address], [place] [address]- 8526 14 Mar, 2016 [facility] [address] [address]- 2549 14 Mar, 2015 [facility] [address], [place] [address]- 5517 13 Mar, 2016 [facility] [address], [place] [address]- 8770 12 Mar, 2015 [facility] [address] [address]- 4338 Mar, [facility] [address] [facility] [id number], [place] [address]- 2830 Mar, [facility] [address] [facility] [id number], [place] [address]- 8474 Feb, Other specified diseases of anus and rectum K62.89 [facility] [address] [facility] [id number], [place] [address]- 3503 Feb, [facility] [address] [facility] [id number] [place] [address] 85752 2547 Feb, Dizziness R42 [facility] [address] [facility] [id number] [place] [address] 76570- 7464 Feb, [facility] [id number] [place] [address] 50955- 9179 Jan, Polyneuropathy G62.9 [facility] [id number] [place] [address] 16822- 2637 Jan, Other specified diseases of anus and rectum K62.89 [facility] [address] [facility] [id number], [place] [address]- 5625 Jan, [facility] [id number], [place] [address]2449 Jan, [facility] [address] [address]- 6121 Jan, [facility] [address], [place] [address]- 8334 Jan, Dizziness R42 [facility] [address] [facility] [id number], [place] [address]- 9892 Dec, [facility] [address] [facility] [id number], [place] [address]- 8914 Dec, [facility] [id number] [address]- 3759 Dec, [facility] [id number] [address]- 8395 Dec, Dizziness R42 [facility] [id number] [place] [address] 50727- 8141 November, [facility] [id number] [address]- 7961 Oct, [facility] [id number] [place] [address] 97918- 0778 Oct, [facility] [id number] [place] [address] 77048- 1575 Oct, [facility] [id number] [place] [address] 73360- 9019 Oct, [facility] [id number] [place] [address] 04164- 6240 Sep, [facility] [id number] [place] [address] 61696- 2997 Sep, Primary insomnia F51.01 [facility] [id number] [place] [address] 78868- 1148 Sep, Primary insomnia F51.01 [facility] [id number] [place] [address] 99572- 7711 Sep, [facility] [address], [place] [address]- 7059 Aug, [facility] [address], [place] [address]- 4396 Aug, [facility] [address], [place] [address]- 8194 Aug, Primary insomnia F51.01 ; Mood disorder F39 ; Nausea and vomiting, unspecified intactability, vomiting of unspecified type R11.2 and Diarrhea R19.7 [facility] [address] [address]- 5453 Aug, [facility] [id number] [address]- 7845 Aug, Folliculitis L73.9 [facility] [id number] [place] [address] 37761- 8008 Aug, [facility] [id number] [place] [address] 51066- 6112 Aug, [facility] [id number] [place] [address] 61660- 0634 Jul, Folliculitis L73.9 [facility] [id number] [place] [address] 06798- 9880 Jul, [facility] [id number] [place] [address] 51838- 2034 Jun, Folliculitis L73.9 [facility] [id number] [place] [address] 59917- 3211 Jun, [facility] [id number] [place] [address] 94028- 2989 May, Polyneuropathy G62.9 [facility] [id number] [place] [address] 04230- 7361 May, Other specified diseases of anus and rectum K62.89 [facility] [id number] [place] [address] 65542- 9691 May, [facility] [id number] [place] [address] 91482- 6546 May, Primary insomnia F51.01 [facility] [id number] [place] [address] 26671- 1315 May, [facility] [id number] [place] [address] 44851- 3503 May, [facility] [id number] [place] [address] 06368- 8936 Apr, Other specified diseases of anus and rectum K62.89 ; Chronic fatigue R53.82 ; Urinary tract infection, site not specified N39.0 and Enterococcus as the cause of diseases classified elsewhere B95.2 [facility] [id number] [place] [address] 06777- 2716 16 Apr, 2015 [facility] [id number] [place] [address] 67552 2546 15 Apr, 2015 [facility] [place] [id number] [place] [address] 38931 2546 14 Apr, 2015 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 [facility] [place] [id number] [place] [address] 21584 2546 05 Apr, 2015 [facility] [place] [id number] [place] [address] 75847- 0086 26 Mar, 2015 [facility] [place] [id number] [place] [address] 75254- 4156 23 Mar, 2015 [facility] [place] [id number] [place] [address] 31049 2546 17 Mar, 2015 [facility] [place] [id number] [place] [address] [id number] 2540 14 Mar, 2015 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 [facility] [place] [id number] [address] 2546 12 Mar, 2015 [facility] [place] [id number] [address] 2546 11 Mar, 2015 [facility] [place] [id number] [address] 2546 11 Mar, 2015 [facility] [place] [id number] [place] [address] 67736 2546 10 Mar, 2015 [facility] [place] [id number] [place] [address] [id number] 2546 Feb, [facility] [place] [id number], [place] [address] Feb, [facility] [place] [address] [id number] [place] [address] Feb, [facility] [address] [facility] [id number], [place] [address] Jan, [facility] [address] [facility] [id number] [place] [address] 2546 Jan, Nausea 787.02 and Neuropathy 355.9 [facility] [address] [facility] [id number], [place] [address] 2549 Jan, [facility] [address] [facility] [id number] [place] [address] 1584 Jan, [facility] [address] [facility] [id number], [place] [address] Jan, [facility] [address] [id number] [id number] Jan, Dental examination V72.2 [facility] [place] [id number] [address] Jan, [facility] [id number] [address] Dec, [facility] [id number], [place] [address] Dec, [facility] [id number] [address] Dec, Neuropathy 355.9 [facility] [address] [facility] [id number], [place] [address] November, [facility] [address] [facility] [id number], [place] [address] November, [facility] [address] [facility] [id number], [place] [address] November, [facility] [address] [facility] [id number] [place] [address] Oct, [facility] [place] [facility] [address] [id number] [place] [address] 47[address] Oct, [facility] [place] [facility] [address] [id number] [place] [address] Sep, [facility] [place] [facility] [address] [id number] [place] [address] 9310 Sep, [facility] [place] [facility] [address] [id number] [place] [address] 4453 Sep, [facility] [place] [facility] [address] [id number] [place] [address]- 3604 Sep, [facility] [facility] [address] [id number] [place] [address] Sep, [facility] [place] [facility] [address] [facility] [id number] [place] [address] Sep, [facility] [place] [facility] [address] [id number] [place] [address] Sep, [facility] [place] [facility] [address] [facility] [id number] [place] [address] Sep, [facility] [place] [facility] [address] [facility] [id number] [place] [address] Aug, [facility] [facility] [address] [facility] [id number] [place] [address]107 Aug, [facility] [place] [facility] [address] [facility] [id number] [place] [address]57 Aug, 2014 [facility] [place] [facility] [address] [facility] [id number] [place] [address]- [address] Aug, [facility] [place] [facility] [address] [id number] [place] [address] 9[address] Aug, [facility] [place] [facility] [address] [facility] [id number] [place] [address]262 Aug, 2014 [facility] [place] [facility] [address] [facility] [id number] [place] [address]- 2546 Aug, [facility] [place] [facility] [address] [id number] [place] [address] Aug, [facility] [place] [facility] [address] [id number] [place] [address]- 7344 Jul, [facility] [place] [facility] [address] [id number] [place] [address]106 Jul, [facility] [place] [facility] [address] [id number] [place] [address]- 67[address] Jun, [facility] [place] [facility] [address] [id number] [place] [address]- 3244 Jun, [facility] [place] [facility] [address] [id number] [place] [address]- 8691 Jun, [facility] [place] [facility] [address] [id number] [place] [address]- 7629 Jun, [facility] [place] [facility] [address] [id number] [place] [address]- [address] Jun, [facility] [place] [facility] [address] [id number] [place] [address]- [address]111 Jun, [facility] [place] [facility] [address] [id number] [place] [address]- 1774 Jun, [facility] [place] [facility] [address] [id number] [place] [address]- 1398 Jun, [facility] [place] [facility] [address] [id number] [place] [address]- 1604 Jun, [facility] [place] [facility] [address] [id number] [place] [address] Jun, [facility] [place] [facility] [address] [id number] [place] [address] Jun, [facility] [place] [facility] [address] [id number] [place] [address]- 1050 May, [facility] [place] [facility] [address] [id number] [place] [address]- 3073 May, [facility] [facility] [address] [id number] [place] [address]- 6927 May, [facility] [place] [facility] [address] [id number] [place] [address]- 4644 May, [facility] [place] [facility] [address] [id number] [place] [address]- 4566 May, [facility] [place] [facility] [address] [id number] [place] [address] May, [facility] [facility] [address] [id number] [place] [address]- 2185 May, [facility] [place] [facility] [address] [id number] [place] [address]- 1871 May, [facility] [address] [id number] [place] [address]- 6165 May, [facility] [address] [id number] [place] [address]- 4176 Apr, [facility] [place] [facility] [address] [id number] [place] [address]- 3941 Apr, [facility] [facility] [address] [id number] [place] [address]- 3787 Apr, [facility] [place] [facility] [address] [id number] [place] [address]- 0201 Apr, [facility] [place] [facility] [address] [id number] [place] [address]- 7487 Apr, [facility] [place] [facility] [address] [id number] [place] [address] Mar, [facility] [address] [id number] [place] [address]- 2220 Mar, [facility] [place] [address] [id number] [place] [address]- 2217 Feb, [facility] [address] [id number] [place] [address]- 7433 Feb, [facility] [address] [id number] [place] [address]- 1877 Feb, [facility] [address] [id number] [place] [address] 3960 Feb, [facility] [address] [id number] [place] [address]- 9430 Feb, [facility] [address] [id number] [place] [address]- 8265 Feb, [facility] [address] [id number] [place] [address]- 9248 Jan, [facility] [address] [id number] [place] [address]- 4527 Jan, [facility] [address] [id number] [place] [address]- 1498 Jan, [facility] [address] [id number] [place] [address]- 7894 Jan, [facility] [address] [id number] [place] [address]- 3749 Jan, [facility] [address] [id number] [place] [address]- 7595 Jan, [facility] [address] [id number] [place] [address]- 7405 Jan, [facility] [address] [id number] [place] [address]- 0417 Jan, [facility] [address] [id number] [place] [address]- 5134 Jan, [facility] [address] [id number] [place] [address]- 0015 Jan, [facility] [address] [id number] [place] [address]- 0535 Jan, [facility] [address] [id number] [place] [address]- 0107 Dec, [facility] [address] [id number] [place] [address]- 5983 Dec, [facility] [address] [id number] [place] [address]- 7531 Dec, [facility] [address] [id number] [place] [address]- 9288 Dec, [facility] [address] [id number] [place] [address]- 5283 Dec, [facility] [address] [id number] [place] [address]- 0502 Dec, [facility] [address] [id number] [place] [address]- [address] November, [facility] [address] [id number] [place] [address]- 2760 November, [facility] [address] [id number] [place] [address]- 3043 November, [facility] [address] [id number] [place] [address]- 8405 November, [facility] [address] [id number] [place] [address]- 6506 November, [facility] [address] [id number] [place] [address]- 3328 November, [facility] [address] [id number] [place] [address]- 1841 Oct, [facility] [address] [id number] [place] [address]- 7641 Oct, [facility] [address] [id number] [place] [address]- 6672 16 Oct, 2013 [facility] [address] [id number] [place] [address]- 5186 Oct, [facility] [address] [id number] [place] [address]- [address]16 Sep, [facility] [address] [id number] [place] [address]- 2546 Sep, [facility] [address] [id number] [place] [address]- 6154 Sep, [facility] [address] [id number] [place] [address] 2540 Sep, [facility] [address] [id number] [place] [address]- 1036 Sep, [facility] [address] [id number] [place] [address]- 8922 Aug, [facility] [address] [id number] [place] [address]- 8636 Aug, [facility] [address] [id number] [place] [address]- 5269 Aug, [facility] [address] [id number] [place] [address]- 8282 Aug, [facility] [address] [id number] [place] [address]- 5228 Aug, [facility] [address] [place] [id number] May, [facility] [address] [id number] [place] [address]- 3945 May, [facility] [address] [id number] [place] [address]- 2546 May, [facility] [address] [id number] [place] [address]- 2546 May, [facility] [address] [id number] [place] [address]- 3618 May, [facility] [address] [id number] [place] [address]- 0200 Apr, [facility] [address] [id number] [place] [address]- 7846 Apr, [facility] [address] [id number] [place] [address]- 3726 Apr, [facility] [address] [id number] [place] [address]- 8101 Apr, [facility] [address] [id number] [place] [address]- 6667 Apr, [facility] [address] [id number] [place] [address]- 1445 Apr, [facility] [address] [id number] [place] [address]- 9892 Apr, [facility] [address] [id number], [place] [address]- 4970 Mar, [facility] [address] [id number] [place] [address]- 1226 25 Mar, 2013 [facility] [address] [id number] [place] [address]- 9171 24 Mar, 2013 [facility] [address] [id number], [place] [address]- 3317 16 Mar, 2013 [facility] [address] [id number], [place] [address]- 1539 12 Mar, 2013 [facility] [address] [id number] [place] [address]- 3149 06 Mar, 2013 [facility] [address] [id number], [place] [address]- 2890 Feb, [facility] [address] [id number] [place] [address] Feb, [facility] [address] [id number] [place] [address]- 1661 Feb, [facility] [address] [id number] [place] [address]- 3672 Feb, [facility] [address] [id number] [place] [address]- 3917 Feb, [facility] [address] [id number] [place] [address]- 4923 Feb, [facility] [address] [id number] [place] [address]- 9903 Jan, [facility] [address] [id number] [place] [address]- 9167 Dec, [facility] [address] [id number] [place] [address]- 2374 Dec, [facility] [address] [id number] [place] [address]- 1408 Dec, [facility] [address] [id number] [place] [address]- 2984 Dec, [facility] [address] [id number] [place] [address]- 6702 Dec, [facility] [address] [id number] [place] [address]- 9138 Dec, [facility] [address] [id number] [place] [address]- 6832 Dec, [facility] [address] [id number] [place] [address]- 2326 Dec, [facility] [facility] [address] [id number] [place] [address]- 2477 Dec, [facility] [address] [id number] [place] [address]- 4331 November, [facility] [address] [id number] [place] [address]- 1168 November, [facility] [id number], [place] [address]- 2211 Oct, [facility] [id number], [place] [address]- 1271 Sep, [facility] [address] [id number] [address] [address]400 Sep, [facility] [id number], [place] [address]- 3885 Sep, [facility] [id number], [place] [address]- 7556 Sep, [facility] [id number], [place] [address]- 5122 Aug, [facility] [id number] [address]34 Aug, [facility] [id number], [place] [address]- 1606 Jul, [facility] [id number], [place] [address]- 8878 Jul, [facility] [address] [id number], [place] [address]- 5224 Jul, [facility] [address] [id number], [place] [address]- 7353 Sep, [facility] [address] [id number], [place] [address]- 3840 Sep, [facility] [address] [id number], [place] [address]- [address]32 Sep, IMMUNIZATIONS No Known Immunizations SOCIAL HISTORY Never Assessed REASON FOR VISIT Ameritojass Carcamo PLAN OF CARE VITAL SIGNS MEDICATIONS Unknown Medications RESULTS Name Result Date Reference Range AMERITOX 2017-08-16 PROCEDURES Procedure Date Ordered Result Body Site No Charge Aug 16, 2017 INSTRUCTIONS MEDICATIONS ADMINISTERED No Known Medications [...]
--- OUTSIDE RECORDS SUMMARY | 2018-06-09 17:41 | XMS REPORT ---
Author Author LINDA BENTLEY Organization [facility] Address [address] [place] [address] Care Team Providers Care Adz Worker Name Role Phone LINDA BENTLEY Unavailable PROBLEMS Type Condition ICD9-CM Code YOZ74-ZA Code Onset Dates Condition Status SNOMED Code Problem Abdominal pain, left lower quadrant R10.32 Active 576210812 Problem Mood disorder F39 Active 97949208 Problem Hypertension, benign I10 Active 31657968 Problem Chronic pain syndrome G89.4 Active 958666953 Problem Attention to urostomy Z43.6 Active 139512876 Problem Anxiety F41.9 Active 93286463 Problem Neuropathy G62.9 Active 804475165 Problem Malignant neoplasm of colon, unspecified part of colon C18.9 Active 297189440 Problem Polyneuropathy G62.9 Active 22729717 Problem Incontinence of feces, unspecified fecal incontinence type R15.9 Active 53444656 Problem Chronic fatigue, unspecified R53.82 Active 441300677 Problem Hydronephrosis with ureteral stricture, not elsewhere classified N13.1 Active 35395753 Problem Primary insomnia F51.01 Active 188686665 Problem 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 529357826 ALLERGIES No Information ENCOUNTERS Encounter Location Date Diagnosis [place] [id number], [place] [address] Dec, [place] [id number], [place] [address] November, Medicare annual wellness visit, initial Z00.00 [place] [address], [place] [address] November, Mood disorder F39 [facility] [id number], [place] [address] 0[address] Oct, Polyneuropathy G62.9 [place] [id number] [place] [address] 88214- 5577 Oct, [facility] [address] [address]- [address] Oct, [facility] [id number] [place] [address] 44380- 0433 Oct, Mood disorder F39 ; Attention to urostomy Z43.6 ; Chronic pain syndrome G89.4 and Polyneuropathy G62.9 [facility] [id number] [place] [address] 31646- 0990 Sep, Polyneuropathy G62.9 [facility] [place] [address] [address]- [address] Sep, [facility] [place] [address] [address]- 2593 Sep, Polyneuropathy G62.9 [facility] [place] [address] 23886- 0133 Aug, Polyneuropathy G62.9 [facility] [place] [id number] [place] [address] 91232- 2231 Aug, Malignant neoplasm of colon, unspecified part of colon C18.9 and Polyneuropathy G62.9 [facility] [id number] [place] [address] 81316- 1746 Aug, Neuropathy G62.9 and Polyneuropathy G62.9 [facility] [id number] [place] [address] 68982- 1628 Jul, Encounter for drug screening Z02.83 [facility] [place] [address] 6[address]- 4696 Jul, Polyneuropathy G62.9 [facility] [id number] [place] [address] 78773- 0221 Jul, [facility] [place] [address] 27734- 9314 Jul, Neuropathy G62.9 and Anxiety F41.9 [facility] [place] [id number] [place] [address] 18763- 0255 Jul, [facility] [id number] [place] [address] 96420- 5475 Jul, [facility] [place] [id number] [place] [address] 73492- 4821 Jul, [facility] [place] [id number] [place] [address] 72066- 5604 Jul, Polyneuropathy G62.9 [facility] [id number] [place] [address] 33804- 8169 Jul, [facility] [id number] [place] [address] 25857- 5470 Jun, [facility] [id number] [place] [address] 86827- 5265 Jun, [facility] [id number] [place] [address] 90299- 6591 Jun, [facility] [id number] [place] [place] [address] Jun, Encounter for dental examination Z01.20 [facility] [id number] [place] [address] 19862- 1317 Jun, Polyneuropathy G62.9 and Anxiety F41.9 [facility] [id number] [place] [address] 85208- 8204 Jun, [facility] [id number] [place] [place] [address] May, Dental examination Z01.20 [facility] [id number] [place] [address] 51716- 9207 06 May, 2017 Polyneuropathy G62.9 [facility] [place] [id number] [place] [address] 30052- 1024 Apr, Polyneuropathy G62.9 [facility] [id number] [place] [address] 36221- 1673 Apr, Polyneuropathy G62.9 [facility] [id number] [place] [address] 82035- 0135 Apr, Hypertension, benign I10 ; Polyneuropathy G62.9 and Anxiety F41.9 [facility] [id number] [place] [address] 33571- 8527 Apr, Primary insomnia F51.01 and Polyneuropathy G62.9 [facility] [address] [address]- 3518 Apr, Primary insomnia F51.01 and Polyneuropathy G62.9 [facility] [id number] [place] [address] 15010- 3456 Mar, Primary insomnia F51.01 [facility] [id number] [place] [address] 40636- 7039 Mar, [facility] [place] [address] 75626- 9546 Mar, Polyneuropathy G62.9 [facility] [id number] [place] [address] 32374- 6815 Feb, Primary insomnia F51.01 [facility] [id number] [place] [address] 58131- 8106 Feb, [facility] [id number] [place] [address] 49991- 1131 Feb, [facility] [id number] [place] [address] 62244- 1612 Feb, Polyneuropathy G62.9 [facility] [id number] [place] [address] 32803- 5971 Feb, Primary insomnia F51.01 [facility] [address], [place] [address]- 0466 Jan, [facility] [id number] [place] [address]- 6171 Jan, [facility] [place] [id number] [place] [address], [place] [address]- 9639 Dec, [facility] [place] [id number] [place] [address] 22530- 0067 Dec, Primary insomnia F51.01 [facility] [id number] [place] [address] 43481- 6781 Dec, Primary insomnia F51.01 [facility] [id number] [place] [address], [place] [address]- 7241 Dec, [facility] [id number] [place] [address], [place] [address]- 4004 Dec, [facility] [id number] [place] [address] 73719- 1485 Dec, [facility] [id number] [place] [address] 94404- 9300 Dec, [facility] [id number] [place] [address] 19099- 1732 November, Primary insomnia F51.01 and Polyneuropathy G62.9 [facility] [address], [place] [address]- 9087 November, [facility] [address], [place] [address]- 1113 November, Abdominal pain, left lower quadrant R10.32 [facility] [id number] [place] [address]- 1897 November, [facility] [address], [place] [address]- 4497 Oct, [facility] [id number] [place] [address] 27130- 7679 Oct, Abdominal pain, left lower quadrant R10.32 ; 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 and Neuropathy G62.9 [facility] [id number] [place] [address] 50542- 2792 Oct, [facility] [id number] [place] [address] 18107- 8488 Sep, [facility] [id number] [place] [address] [id number] Sep, [facility] [id number] [place] [address] 19290- 9184 Sep, [facility] [id number] [place] [address] 76396- 3784 Aug, [facility] [id number] [place] [address] 94654- 8786 Aug, [facility] [id number] [place] [address] 32774- 1603 Aug, Abdominal pain, left lower quadrant R10.32 ; Neuropathy G62.9 and Anxiety F41.9 [facility] [address] [place] [address] Jul, [facility] [id number] [place] [address] 45661- 3650 Jul, [facility] [id number] [place] [address] 48794 -3941 Jul, [facility] [id number] [place] [address] 07480- 1507 Jul, [facility] [id number] [place] [address] 37593- 5032 Jul, [facility] [id number] [place] [address] 33924- 5066 Jun, [facility] [id number] [place] [address] 31220- 5940 May, [facility] [address] [facility] [id number] [address]- 0750 May, [facility] [id number] [place] [address] 60572- 0922 Apr, [facility] [address], [place] [address]- 5388 Apr, Muscle spasms of both lower extremities M62.838 and Cellulitis, unspecified cellulitis site L03.90 [facility] [address] [facility] [id number] [address]- 4545 Apr, [facility] [id number] [place] [address] 50219- 8593 23 Mar, 2016 Generalized abdominal pain R10.84 [facility] [id number] [place] [address] 25830- 7883 20 Mar, 2016 [facility] [id number] [place] [address] 75084- 7672 14 Mar, 2016 [facility] [id number], [place] [address]- 2414 14 Mar, 2016 [facility] [address], [place] [address]- 5573 13 Mar, 2016 [facility] [address], [place] [address]- 1819 12 Mar, 2016 [facility] [address], [place] [address]- 5766 09 Mar, 2016 [facility] [id number], [place] [address]- 254 06 Mar, 2016 [facility] [address], [place] [address]- 2519 17 Feb, 2016 Other specified diseases of anus and rectum K62.89 [facility] [address], [place] [address]- 3697 15 Feb, 2016 [facility] [id number] [place] [address]- 2010 Feb, Dizziness R42 [facility] [id number] [place] [address], [place] [address]- 1659 Feb, [facility] [id number] [place] [address] 60779- 1127 Jan, Polyneuropathy G62.9 [facility] [id number] [place] [address], [place] [address]- 2519 Jan, Other specified diseases of anus and rectum K62.89 [facility] [id number] [place] [address], [place] [address]- 9052 Jan, [facility] [id number] [place] [address] 70160 -3020 Jan, [facility] [id number] [place] [address] 47228- 3349 Jan, [facility] [id number] [place] [address] 05821- 4726 Jan, Dizziness R42 [facility] [id number] [place] [address], [place] [address]- 1572 Dec, [facility] [id number] [place] [address] 58534- 3502 Dec, [facility] [id number] [place] [address] 06642- 9987 Dec, [facility] [id number] [place] [address] 54088- 7442 Dec, Dizziness R42 [facility] [id number] [place] [address], [place] [address]- 1195 November, [facility] [id number], [place] [address]- 7829 Oct, [facility] [id number] [place] [address] 89279- 8383 Oct, [facility] [id number] [place] [address] 60798- 8959 Oct, [facility] [id number] [place] [address] 74057- 9750 Oct, [facility] [id number] [place] [address] 68219- 4268 Sep, [facility] [id number] [place] [address] 57771- 1581 Sep, Primary insomnia F51.01 [facility] [id number] [place] [address] 66957- 8112 Sep, Primary insomnia F51.01 [facility] [id number] [place] [address] 76017- 8032 Sep, [facility] [id number] [place] [address] 33966- 5226 Aug, [facility] [id number] [place] [address] 24534- 5683 Aug, [facility] [id number] [place] [address] 60287- 6896 Aug, Primary insomnia F51.01 ; Mood disorder F39 ; Nausea and vomiting, unspecified intactability, vomiting of unspecified type R11.2 and Diarrhea R19.7 [facility] [id number] [place] [address] 30828- 7677 Aug, [facility] [id number] [place] [address] 24429- 2052 Aug, Folliculitis L73.9 [facility] [id number] [place] [address] 51034- 1208 Aug, [facility] [id number] [place] [address] 48049- 9414 Aug, [facility] [id number] [place] [address] 83538- 9118 Jul, Folliculitis L73.9 [facility] [id number] [place] [address] 67166- 8223 Jul, [facility] [id number] [place] [address] 36644- 1451 Jun, Folliculitis L73.9 [facility] [id number] [place] [address] 51117- 0048 Jun, [facility] [id number] [place] [address] 54667- 2611 May, Polyneuropathy G62.9 [facility] [id number] [place] [address] 50547- 9650 May, Other specified diseases of anus and rectum K62.89 [place] [id number] [place] [address] 95859- 0755 May, [facility] [id number] [place] [address] 43390- 9283 May, Primary insomnia F51.01 [facility] [id number] [place] [address] 20108- 5038 May, [facility] [id number] [place] [address] 76694- 3769 May, [facility] [id number] [place] [address] 75017- 5679 Apr, Other specified diseases of anus and rectum K62.89 ; Chronic fatigue R53.82 ; Urinary tract infection, site not specified N39.0 and Enterococcus as the cause of diseases classified elsewhere B95.2 [facility] [id number] [place] [address] 24135- 8057 16 Apr, 2015 [facility] [id number] [place] [address] 85536- 1429 Apr, [facility] [id number] [place] [address] 75644- 2953 14 Apr, 2015 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 [facility] [address] [facility] [id number] [address]- 0066 05 Apr, 2015 [facility] [id number], [place] [address] 2546 26 Mar, 2015 [facility] [address] [facility] [place] [id number] [place] [address] 73687 2546 23 Mar, 2015 [facility] [address] [facility] [place] [id number] [place] [address] [id number] 2546 17 Mar, 2015 [facility] [id number] [place] [address] 87799- 0411 14 Mar, 2015 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 [facility] [id number] [place] [address] [id number]- 2336 12 Mar, 2015 [facility] [id number] [place] [address] 36062- 5068 11 Mar, 2015 [facility] [id number] [place] [address] 10783- 1479 11 Mar, 2015 [facility] [id number] [place] [address] [phone] Mar, [facility] [place] [id number] [address] 2547 Feb, [facility] [id number] [address] 254 Feb, [facility] [id number] [address] 2547 Feb, [facility] [id number] [place] [address] [id number] 2546 Jan, [facility] [id number] [address] 2541 Jan, Nausea 787.02 and Neuropathy 355.9 [facility] [address] [id number] [place] [address]- [address] Jan, [facility] [address] [id number] [place] [address] Jan, [facility] [place] [facility] [address] [facility] [place] [id number] [place] [address] 2546 Jan, [facility] [address] [id number] [place] [id number] Jan, Dental examination V72.2 [facility] [place] [facility] [address] [id number] [place] [id number] 2546 Jan, [facility] [place] [facility] [address] [id number] [place] [address] 8728 Dec, [facility] [place] [facility] [address] [facility] [facility] [place] [id number] [place] [address] Dec, [facility] [address] [facility] [facility] [place] [id number] [place] [address] 85[address] Dec, Neuropathy 355.9 [facility] [place] [facility] [address] [id number] [place] [address] November, [facility] [address] [facility] [facility] [place] [id number] [place] [address] [address] November, [facility] [place] [facility] [address] [facility] [place] [id number] [place] [address] November, [facility] [place] [facility] [address] [facility] [id number] [address] Oct, [facility] [place] [facility] [address] [id number] [place] [address] 2544 Oct, [facility] [place] [facility] [address] [id number] [place] [address] Sep, [facility] [place] [facility] [address] [id number] [place] [address] 25[address] Sep, [facility] [place] [facility] [address] [facility] [place] [id number] [place] [address] Sep, [facility] [place] [facility] [address] [id number] [place] [address] Sep, [facility] [place] [facility] [address] [id number] [place] [address] Sep, [facility] [place] [facility] [address] [facility] [place] [id number] [place] [address] Sep, [facility] [place] [facility] [address] [id number] [place] [address] 8267 Sep, [facility] [place] [facility] [address] [id number] [place] [address] 33[address] Sep, [facility] [place] [facility] [address] [id number] [place] [address]65 Aug, 2014 [facility] [place] [facility] [address] [facility] [place] [id number] [place] [address] Aug, 2014 [facility] [place] [facility] [address] [facility] [place] [id number] [place] [address] 9683 Aug, 2014 [facility] [place] [facility] [address] [facility] [place] [id number] [place] [address] Aug, 2014 [facility] [place] [facility] [address] [facility] [place] [id number] [place] [address] 06[address] Aug, [facility] [place] [facility] [address] [facility] [place] [id number] [place] [address] 8747 Aug, 2014 [facility] [place] [facility] [address] [facility] [place] [id number] [place] [address] 68[address] Aug, 2014 [facility] [place] [facility] [address] [facility] [place] [id number] [place] [address] 9[address] Aug, [facility] [place] [facility] [address] [facility] [place] [id number] [place] [address] Jul, [facility] [place] [facility] [address] [facility] [place] [id number] [place] [address] 9[address] Jul, [facility] [place] [facility] [address] [id number] [place] [address] 9163 Jun, [facility] [place] [facility] [address] [id number] [place] [address] Jun, [facility] [place] [facility] [address] [id number] [place] [address] 1337 Jun, [facility] [place] [facility] [address] [id number] [place] [address] 5211 Jun, [facility] [place] [facility] [address] [id number] [place] [address]- 9316 Jun, [facility] [place] [facility] [address] [id number] [place] [address] Jun, [facility] [place] [facility] [address] [id number] [place] [address] 5896 Jun, [facility] [place] [facility] [address] [id number] [place] [address] 4986 Jun, [facility] [place] [facility] [address] [id number] [place] [address] Jun, [facility] [place] [facility] [address] [id number] [place] [address] 7658 Jun, [facility] [place] [facility] [address] [id number] [place] [address]- 2528 Jun, [facility] [place] [facility] [address] [id number] [place] [address] 2399 May, [facility] [place] [facility] [address] [id number] [place] [address] 0065 May, [facility] [place] [facility] [address] [id number] [place] [address] 1432 May, [facility] [place] [facility] [address] [id number] [place] [address] 9736 May, [facility] [place] [facility] [address] [id number] [place] [address] 2621 May, [facility] [place] [facility] [address] [id number] [place] [address] 9228 May, [facility] [place] [facility] [address] [id number] [place] [address] 9012 May, [facility] [place] [facility] [address] [id number] [place] [address] 5174 May, [facility] [place] [facility] [address] [id number] [place] [address] 0109 May, [facility] [place] [facility] [address] [id number] [place] [address] 0643 Apr, [facility] [place] [facility] [address] [id number] [place] [address] 4440 Apr, [facility] [place] [facility] [address] [id number] [place] [address] 5755 Apr, [facility] [place] [facility] [address] [id number] [place] [address] 6598 Apr, [facility] [place] [facility] [address] [id number] [place] [address] 6061 Apr, [facility] [place] [facility] [address] [id number] [place] [address] 7645 Mar, [facility] [place] [facility] [address] [id number] [place] [address] 8567 Mar, [facility] [place] [facility] [address] [id number], [place] [address] Feb, [facility] [place] [facility] [address] [id number] [place] [address] 6021 Feb, [facility] [place] [facility] [address] [id number] [place] [address] 0857 Feb, [facility] [place] [facility] [address] [id number] [place] [address]- 1826 Feb, [facility] [place] [facility] [address] [id number] [place] [address]- 7112 Feb, [facility] [place] [facility] [address] [id number] [place] [address]- 1037 Feb, [facility] [place] [facility] [address] [id number] [place] [address] 0215 Jan, [facility] [place] [facility] [address] [id number] [place] [address]- 8369 Jan, [facility] [place] [facility] [address] [id number] [place] [address]- 1188 Jan, [facility] [place] [facility] [address] [id number] [place] [address]- 8324 Jan, [facility] [place] [facility] [address] [id number] [place] [address]- 9080 Jan, [facility] [place] [facility] [address] [id number] [place] [address] 0129 Jan, [facility] [place] [facility] [address] [id number] [place] [address]- 8292 Jan, [facility] [place] [facility] [address] [id number] [place] [address]- 8390 Jan, [facility] [place] [facility] [address] [id number] [place] [address]- 0362 Jan, [facility] [place] [facility] [address] [id number] [place] [address]- 2176 Jan, [facility] [place] [facility] [address] [id number] [place] [address]- 2924 Jan, [facility] [place] [facility] [address] [id number] [place] [address]- 9242 Dec, [facility] [place] [facility] [address] [id number] [place] [address]- 7626 Dec, [facility] [place] [facility] [address] [id number] [place] [address]- 4815 Dec, [facility] [place] [facility] [address] [id number] [place] [address]- 9467 Dec, [facility] [place] [facility] [address] [id number] [place] [address]- 9100 Dec, [facility] [place] [facility] [address] [id number] [place] [address]- 9789 Dec, [facility] [place] [facility] [address] [id number] [place] [address]- 5596 November, [facility] [place] [facility] [address] [id number] [place] [address]- 8301 November, [facility] [place] [facility] [address] [id number] [place] [address]- 3885 November, [facility] [place] [facility] [address] [id number] [place] [address]- 3124 November, [facility] [place] [facility] [address] [id number] [place] [address]- 9917 November, [facility] [place] [facility] [address] [id number] [place] [address]- 2068 November, [facility] [place] [facility] [address] [id number] [place] [address]- 4930 Oct, [facility] [place] [facility] [address] [id number] [place] [address]- 2964 Oct, [facility] [place] [facility] [address] [id number] [place] [address]- 1057 Oct, [facility] [place] [facility] [address] [id number] [place] [address]- 3155 Oct, [facility] [place] [facility] [address] [id number] [place] [address]- 9481 Sep, [facility] [place] [facility] [address] [id number] [place] [address]- 5211 Sep, [facility] [place] [facility] [address] [id number], [place] [address]- 8585 Sep, [facility] [address] [id number] [place] [address]- 1855 Sep, [facility] [address] [id number] [place] [address]- 8834 Sep, [facility] [address] [id number] [place] [address]- 3314 Aug, [facility] [address] [id number] [place] [address]- 8175 Aug, [facility] [address] [id number] [place] [address]- 2036 Aug, [facility] [address] [id number] [place] [address]- 2383 Aug, [facility] [address] [facility] [place] [id number], [place] [address]- [address] Aug, [facility] [place] [id number] May, [facility] [address] [id number], [place] [address]- 6210 May, [facility] [address] [id number], [place] [address]- 3309 May, [facility] [address] [id number], [place] [address]- 7929 May, [facility] [address] [id number], [place] [address]- 7431 May, [facility] [address] [id number], [place] [address]- 5308 Apr, [facility] [address] [id number], [place] [address]- 8583 Apr, [facility] [address] [id number], [place] [address]- 7758 Apr, [facility] [address] [id number] [place] [address]- 5210 Apr, [facility] [address] [id number] [place] [address]- 0159 Apr, [facility] [place] [facility] [address] [id number] [place] [address]- 3856 Apr, [facility] [address] [id number] [place] [address]- 2540 Apr, [facility] [place] [facility] [address] [id number] [place] [address]- 8625 Mar, [facility] [address] [id number] [place] [address]- 9340 Mar, [facility] [place] [facility] [address] [id number] [place] [address]- 5391 24 Mar, 2013 [facility] [address] [id number] [place] [address]- 5923 16 Mar, 2013 [facility] [address] [id number] [place] [address]- 8515 Mar, [facility] [place] [facility] [address] [id number] [place] [address]- 2361 Mar, [facility] [place] [address] [id number] [place] [address]- 4180 Feb, [facility] [place] [facility] [address] [id number] [place] [address]- 4379 Feb, [facility] [place] [facility] [address] [id number] [place] [address]- 9201 Feb, [facility] [place] [facility] [address] [id number] [place] [address]- 2728 Feb, [facility] [place] [facility] [address] [id number] [place] [address]- 8407 Feb, [facility] [place] [facility] [address] [id number] [place] [address]- 3447 Feb, [facility] [place] [facility] [address] [id number] [place] [address]- 8374 Jan, [facility] [place] [facility] [address] [id number] [place] [address]- 4417 Dec, [facility] [place] [facility] [address] [id number] [place] [address]- 8317 Dec, [facility] [place] [facility] [address] [id number] [place] [address]- 7116 Dec, [facility] [address] [id number] [place] [address]- 4407 Dec, [facility] [place] [facility] [address] [id number] [place] [address]- 4031 Dec, [facility] [place] [facility] [address] [id number] [place] [address]- 9053 Dec, [facility] [place] [facility] [address] [id number] [place] [address]- 0900 Dec, [facility] [place] [facility] [address] [id number] [place] [address]- 5334 Dec, [facility] [place] [facility] [address] [id number] [place] [address]- 7989 Dec, [facility] [place] [facility] [address] [id number] [place] [address]- 8020 November, [facility] [place] [facility] [address] [id number], [place] [address]- 4367 November, [facility] [place] [facility] [address] [id number] [place] [address]- 4481 Oct, [facility] [place] [facility] [address] [id number] [place] [address]- 1773 Sep, [facility] [place] [facility] [address] [id number] [place] [address]- 9580 Sep, [facility] [place] [facility] [address] [id number], [place] [address]- 6976 15 Sep, 2012 [facility] [place] [id number], [place] [address]- 8396 Sep, [facility] [place] [id number], [place] [address]- 6066 Aug, [facility] [place] [id number], [place] [address]- 0926 Aug, [facility] [place] [id number], [place] [address]- 9252 Jul, [facility] [place] [id number], [place] [address]- 5236 Jul, [facility] [place] [id number], [place] [address]- 9116 Jul, [facility] [place] [id number], [place] [address]- 4089 Sep, [facility] [place] [id number], [place] [address]- 4756 17 Sep, 2011 [facility] [place] [id number], [place] [address]- 7951 Sep, IMMUNIZATIONS No Known Immunizations SOCIAL HISTORY Never Assessed REASON FOR VISIT Refill request PLAN OF CARE VITAL SIGNS MEDICATIONS Medication Instructions Dosage Frequency Start Date End Date Duration Status Lyrica 150 MG Orally 3 times a day 1 capsule 8h Feb, Active Percocet 10-325 MG Orally every 4 hrs 1 tablet 4h May, Active Oxycodone HCl 30 MG Orally 2 times a day 1 tablet as needed 12h May, Active RESULTS No Results PROCEDURES No Known [...]
--- OUTSIDE RECORDS SUMMARY | 2018-06-09 17:41 | XMS REPORT ---
Author Author LINDA BENTLEY Organization [facility] Address [address] [place] [address] Care Team Providers Care Rda Name Role Phone LINDA BENTLEY Unavailable PROBLEMS Type Condition ICD9-CM Code [id number] Code Onset Dates Condition Status SNOMED Code Problem Abdominal pain, left lower quadrant R10.32 Active 519904579 Problem Mood disorder F39 Active 10566698 Problem Hypertension, benign I10 Active 16188455 Problem Chronic pain syndrome G89.4 Active 958359435 Problem Attention to urostomy Z43.6 Active 595580879 Problem Anxiety F41.9 Active 07479803 Problem Neuropathy G62.9 Active 865472016 Problem Malignant neoplasm of colon, unspecified part of colon C18.9 Active 066620683 Problem Polyneuropathy G62.9 Active 04284210 Problem Incontinence of feces, unspecified fecal incontinence type R15.9 Active 29079537 Problem Chronic fatigue, unspecified R53.82 Active 652404397 Problem Hydronephrosis with ureteral stricture, not elsewhere classified N13.1 Active 37294414 Problem Primary insomnia F51.01 Active 422304319 Problem 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 [id number], [place] [address] Jan, [facility] [id number], [place] [address] Dec, Polyneuropathy G62.9 [facility] [id number], [place] [address] 4646 14 Dec, [address] [facility] [id number], [place] [address] 8114 November, Polyneuropathy G62.9 [facility] [address], [place] [address] 7[address] November, Medicare annual wellness visit, initial Z00.00 [facility] [id number] [place] [address] 49706- 4759 November, Mood disorder F39 [facility] [id number] [place] [address] 53380- 2787 Oct, Polyneuropathy G62.9 [facility] [id number] [place] [address] 58516- 4743 Oct, [facility] [id number] [place] [address] 67953- 8700 Oct, [facility] [id number] [place] [address] 55318- 5456 Oct, Mood disorder F39 ; Attention to urostomy Z43.6 ; Chronic pain syndrome G89.[address] [facility] [id number] [place] [address] 96180- 6748 Sep, Polyneuropathy G62.9 [facility] [id number] [place] [address] 11614- 8737 Sep, [facility] [id number] [place] [address] 93407- 4050 Sep, Polyneuropathy G62.9 [facility] [id number] [place] [address] 09259- 2719 Aug, Polyneuropathy G62.9 [facility] [id number] [place] [address] 47319- 8529 Aug, Malignant neoplasm of colon, unspecified part of colon C18.[address] [facility] [address], [place] [address] 1131 Aug, Neuropathy G62.[address] [facility] [id number] [place] [address] 25619- 4296 Jul, Encounter for drug screening Z02.83 [facility] [id number] [place] [address] 33381- 7822 Jul, Polyneuropathy G62.9 [facility] [id number] [place] [address] 10076- 9291 Jul, [facility] [id number] [place] [address] 83897- 9184 Jul, Neuropathy G62.[address] [facility] [id number] [place] [address] 65948- [address]263 Jul, [facility] [id number] [place] [address] 71124- 5762 Jul, [facility] [id number] [place] [address] 44317- 5480 Jul, [facility] [id number] [place] [address] 38194- 5019 Jul, Polyneuropathy G62.9 [facility] [id number] [place] [address] 09011- 3493 Jul, [facility] [id number] [place] [address] 58023- 1289 Jun, [facility] [id number] [place] [address] 92875- 4344 Jun, [facility] [id number] [place] [address] 01147- 3153 Jun, [facility] [id number] [place] [address] Jun, Encounter for dental examination Z01.20 [facility] [address], [place] [address] 8289 Jun, Polyneuropathy G62.[address] [facility] [id number], [place] [address] 2616 Jun, [facility] [id number] [place] [address] May, Dental examination Z01.20 [facility] [id number] [place] [address] 18057- 3287 May, Polyneuropathy G62.9 [facility] [id number] [place] [address] 92939- 4870 Apr, Polyneuropathy G62.9 [facility] [id number] [place] [address] 58679- 5135 Apr, Polyneuropathy G62.9 [facility] [id number] [place] [address] 40209- 9209 Apr, Hypertension, benign I10 ; Polyneuropathy G62.[address] [facility] [id number] [place] [address] 41534- 2519 Apr, Primary insomnia F51.[address] [facility] [id number] [place] [address] 55025- 2501 Apr, Primary insomnia F51.[address]9 [facility] [id number] [place] [address] 77871- 5662 Mar, Primary insomnia F51.01 [facility] [id number] [place] [address] 26698- 1824 Mar, [facility] [id number] [place] [address] 66819- 2193 Mar, Polyneuropathy G62.9 [facility] [address] [place] [address] 69070- 6055 Feb, Primary insomnia F51.01 [facility] [id number] [place] [address] 18446- 4449 Feb, [facility] [address] [address] 9[address] Feb, [facility] [address] [address]- 2576 Feb, Polyneuropathy G62.9 [facility] [address] [address]- 2525 Feb, Primary insomnia F51.01 [facility] [address] [address]- 8072 Jan, [facility] [id number] [address]- [address] Jan, [facility] [address] [address]- 5438 Dec, [facility] [address] [address]- 3127 Dec, Primary insomnia F51.01 [facility] [address] [address]- 4660 Dec, Primary insomnia F51.01 [facility] [address] [address]- 1796 Dec, [facility] [address] [address]- 0407 Dec, [facility] [address] [address]- 6214 Dec, [facility] [address] [address]- 6778 Dec, [facility] [address] [address]- 3969 November, Primary insomnia F51.[address] [facility] [address] [address]- 7836 November, [facility] [id number] [place] [address] 90008- 1874 November, Abdominal pain, left lower quadrant R10.32 [facility] [id number] [place] [address] 96613- 5233 November, [facility] [id number] [place] [address] 75522- 8825 Oct, [facility] [id number] [place] [address] 11067- 5970 Oct, Abdominal pain, left lower quadrant R10.32 ; 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 [facility] [address] [address]43- 7168 Oct, [facility] [id number] [place] [address] 84982- 8330 Sep, [facility] [address] [id number] Sep, [facility] [id number] [place] [address] 98421- 7564 Sep, [facility] [id number] [place] [address] 03555- 2588 Aug, [facility] [id number] [place] [address] 95975- 6175 Aug, [facility] [id number] [place] [address] 18173- 3080 Aug, Abdominal pain, left lower quadrant R10.32 ; Neuropathy G62.9 and Anxiety F41.9 [facility] [address] [place] [address] Jul, [facility] [id number] [place] [address] 37355898- 7720 Jul, [facility] [id number] [place] [address] 59207 -8500 Jul, [facility] [address] [place] [address]- 3338 Jul, [facility] [address], [place] [address]- 0717 Jul, [facility] [address], [place] [address]- 2574 Jun, [facility] [id number] [place] [address] 102672- 3856 May, [facility] [address], [place] [address]- 8035 May, [facility] [id number] [place] [address] 40055- 4788 Apr, [facility] [address], [place] [address]- 0887 Apr, Muscle spasms of both lower extremities M62.838 and Cellulitis, unspecified cellulitis site L03.90 [facility] [address], [place] [address]- 3595 Apr, [facility] [id number] [place] [address] 97446- 2011 23 Mar, 2016 Generalized abdominal pain R10.84 [facility] [address], [place] [address]- 5165 20 Mar, 2016 [facility] [address], [place] [address]- 4221 14 Mar, 2016 [facility] [address], [place] [address]- 2545 14 Mar, 2015 [facility] [address], [place] [address]- 1651 13 Mar, 2016 [facility] [address], [place] [address]- 3599 12 Mar, 2015 [facility] [address], [place] [address]- 0158 Mar, [facility] [address] [facility] [id number], [place] [address]- 5235 Mar, [facility] [address] [facility] [id number], [place] [address]- 9390 Feb, Other specified diseases of anus and rectum K62.89 [facility] [address] [facility] [id number], [place] [address]- 0171 Feb, [facility] [address] [facility] [id number] [place] [address] 59490 2548 Feb, Dizziness R42 [facility] [address] [facility] [id number] [place] [address] 85408- 3761 Feb, [facility] [id number] [place] [address] 45667- 1938 Jan, Polyneuropathy G62.9 [facility] [address] [place] [address] 19541- 6853 Jan, Other specified diseases of anus and rectum K62.89 [facility] [address] [facility] [id number], [place] [address]- 9315 Jan, [facility] [id number], [place] [address] Jan, [facility] [address], [place] [address]- 2204 Jan, [facility] [address], [place] [address]- 0222 Jan, Dizziness R42 [facility] [address] [facility] [id number], [place] [address]- 4492 Dec, [facility] [address] [facility] [id number], [place] [address]- 5425 Dec, [facility] [id number], [place] [address]- 8452 Dec, [facility] [id number], [place] [address]- 3498 Dec, Dizziness R42 [facility] [id number] [place] [address] 82793- 0292 November, [facility] [id number], [place] [address]- 7450 Oct, [facility] [id number] [place] [address] 40338- 2815 Oct, [facility] [id number] [place] [address] 41339- 2044 Oct, [facility] [id number] [place] [address] 11001- 7819 Oct, [facility] [id number] [place] [address] 95201- 0318 Sep, [facility] [id number] [place] [address] 85338- 2481 Sep, Primary insomnia F51.01 [facility] [address] [place] [address] 93191- 7381 Sep, Primary insomnia F51.01 [facility] [id number] [place] [address] 11160- 4486 Sep, [facility] [address], [place] [address]- 0934 Aug, [facility] [address], [place] [address]- 8362 Aug, [facility] [address], [place] [address]- 1765 Aug, Primary insomnia F51.01 ; Mood disorder F39 ; Nausea and vomiting, unspecified intactability, vomiting of unspecified type R11.[address] [facility] [address], [place] [address]- 0246 Aug, [facility] [id number], [place] [address]- 5129 Aug, Folliculitis L73.9 [facility] [id number] [place] [address] 74979- 4244 Aug, [facility] [id number] [place] [address] 73980- 2037 Aug, [facility] [id number] [place] [address] 19528- 7750 Jul, Folliculitis L73.9 [facility] [id number] [place] [address] 30860- 2051 Jul, [facility] [id number] [place] [address] 46786- 0292 Jun, Folliculitis L73.9 [facility] [id number] [place] [address] 48398- 6798 Jun, [facility] [id number] [place] [address] 70703- 2977 May, Polyneuropathy G62.9 [facility] [id number] [place] [address] 85363- 8568 May, Other specified diseases of anus and rectum K62.89 [facility] [id number] [place] [address] 60519- 8368 May, [facility] [id number] [place] [address] 50889- 2716 May, Primary insomnia F51.01 [facility] [id number] [place] [address] 70211- 9066 May, [facility] [id number] [place] [address] 79831- 7889 May, [facility] [address] [place] [address] 12510- 5326 Apr, Other specified diseases of anus and rectum K62.89 ; Chronic fatigue R53.82 ; Urinary tract infection, site not specified N39.0 and Enterococcus as the cause of diseases classified elsewhere B95.2 [facility] [id number] [place] [address] 30447- 4526 16 Apr, 2015 [facility] [id number] [place] [address] 98001 2546 15 Apr, 2015 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 [id number] [place] [address] 71962 2546 05 Apr, 2015 [facility] [id number] [place] [address] 70830- 3406 26 Mar, 2015 [facility] [id number] [place] [address] 16502- 1666 23 Mar, 2015 [facility] [id number] [place] [address] 09442 2546 17 Mar, 2015 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 [address], [place] [address] 2546 12 Mar, 2015 [facility] [address], [place] [address] 2546 11 Mar, 2015 [facility] [address], [place] [address] 2546 11 Mar, 2015 [facility] [address] [place] [address] 04354 2546 10 Mar, 2015 [facility] [id number] [place] [address] 06324 2546 Feb, [facility] [address], [place] [address]- 6926 Feb, [facility] [address] [id number] [place] [address]- 8705 Feb, [facility] [address] [facility] [id number], [place] [address]- 6312 Jan, [facility] [address] [facility] [id number] [place] [address] 2546 Jan, Nausea 787.02 and Neuropathy 355.9 [facility] [address] [facility] [id number], [place] [address] Jan, [facility] [address] [facility] [id number] [place] [address] Jan, [facility] [address] [facility] [id number], [place] [address] Jan, [facility] [address] [id number] [id number] Jan, Dental examination V72.2 [facility] [address] [id number], [place] [address] Jan, [facility] [id number], [place] [address] Dec, [facility] [id number], [place] [address] Dec, [facility] [id number] [address] Dec, Neuropathy 355.9 [facility] [address] [facility] [id number], [place] [address] November, [facility] [address] [facility] [id number], [place] [address] November, [facility] [address] [facility] [id number], [place] [address] November, [facility] [address] [facility] [id number] [place] [address] Oct, [facility] [place] [facility] [address] [id number] [place] [address] Oct, [facility] [place] [facility] [address] [id number] [place] [address] Sep, [facility] [place] [facility] [address] [id number] [place] [address] Sep, [facility] [place] [facility] [address] [id number] [place] [address] Sep, [facility] [place] [facility] [address] [id number] [place] [address] Sep, [facility] [place] [facility] [address] [id number] [place] [address] Sep, [facility] [place] [facility] [address] [facility] [id number] [place] [address]- [address] Sep, [facility] [place] [facility] [address] [id number] [place] [address] Sep, [facility] [place] [facility] [address] [facility] [id number] [place] [address] Sep, [facility] [place] [facility] [address] [facility] [id number] [place] [address] Aug, [facility] [place] [facility] [address] [facility] [id number] [place] [address] Aug, [facility] [place] [facility] [address] [facility] [id number] [place] [address] Aug, 2014 [facility] [place] [facility] [address] [facility] [id number] [place] [address] Aug, [facility] [place] [facility] [address] [id number] [place] [address] Aug, [facility] [place] [facility] [address] [facility] [id number] [place] [address] Aug, 2014 [facility] [place] [facility] [address] [facility] [facility] [id number] [place] [address] Aug, [facility] [place] [facility] [address] [id number] [place] [address] Aug, [facility] [place] [facility] [address] [id number] [place] [address] Jul, [facility] [place] [facility] [address] [id number] [place] [address] Jul, [facility] [place] [facility] [address] [id number] [place] [address]558 Jun, [facility] [place] [facility] [address] [id number] [place] [address]70 Jun, [facility] [place] [facility] [address] [id number] [place] [address] Jun, [facility] [place] [facility] [address] [id number] [place] [address] 244[address] Jun, [facility] [place] [facility] [address] [id number] [place] [address] 395[address] Jun, [facility] [place] [facility] [address] [id number] [place] [address] 6742 Jun, [facility] [place] [facility] [address] [id number] [place] [address] 8154 Jun, [facility] [place] [facility] [address] [id number] [place] [address] 7720 Jun, [facility] [place] [facility] [address] [id number] [place] [address] 8357 Jun, [facility] [place] [facility] [address] [id number] [place] [address] Jun, [facility] [place] [facility] [address] [id number] [place] [address] Jun, [facility] [place] [facility] [address] [id number] [place] [address] 0865 May, [facility] [place] [facility] [address] [id number] [place] [address] 7972 May, [facility] [place] [facility] [address] [id number] [place] [address] May, [facility] [place] [facility] [address] [id number] [place] [address] 8739 May, [facility] [place] [facility] [address] [id number] [place] [address]- 7673 May, [facility] [place] [facility] [address] [id number] [place] [address]- 4384 May, [facility] [place] [facility] [address] [id number] [place] [address]- 1494 May, [facility] [place] [facility] [address] [id number] [place] [address]- 3766 May, [facility] [place] [facility] [address] [id number] [place] [address] 6405 May, [facility] [place] [facility] [address] [id number] [place] [address] 0964 Apr, [facility] [place] [facility] [address] [id number] [place] [address] 5375 Apr, [facility] [place] [facility] [address] [id number] [place] [address] 9058 Apr, [facility] [place] [facility] [address] [id number] [place] [address] 2204 Apr, [facility] [place] [facility] [address] [id number] [place] [address] 7545 Apr, [facility] [place] [facility] [address] [id number] [place] [address] 4460 Mar, [facility] [place] [facility] [address] [id number] [place] [address] 5116 Mar, [facility] [place] [facility] [address] [id number] [place] [address] 3698 Feb, [facility] [place] [facility] [address] [id number] [place] [address] 9390 Feb, [facility] [place] [facility] [address] [id number] [place] [address] 7941 Feb, [facility] [place] [facility] [address] [id number] [place] [address]407 Feb, [facility] [place] [facility] [address] [id number] [place] [address] 6130 Feb, [facility] [place] [facility] [address] [id number] [place] [address] 0346 Feb, [facility] [place] [facility] [address] [id number] [place] [address] 9256 Jan, [facility] [place] [facility] [address] [id number] [place] [address] 7969 Jan, [facility] [place] [facility] [address] [id number] [place] [address]- 5805 Jan, [facility] [place] [facility] [address] [id number] [place] [address] 4315 Jan, [facility] [place] [facility] [address] [id number] [place] [address] 7883 Jan, [facility] [place] [facility] [address] [id number] [place] [address]- 6692 Jan, [facility] [place] [facility] [address] [id number] [place] [address] 2358 Jan, [facility] [place] [facility] [address] [id number] [place] [address]- 9482 Jan, [facility] [place] [facility] [address] [id number] [place] [address] 2050 Jan, [facility] [place] [facility] [address] [id number] [place] [address]- 0464 Jan, [facility] [place] [facility] [address] [id number] [place] [address] 8425 Jan, [facility] [place] [facility] [address] [id number] [place] [address]- 7627 Dec, [facility] [place] [facility] [address] [id number] [place] [address]- 8579 Dec, [facility] [place] [facility] [address] [id number] [place] [address]- 7493 Dec, [facility] [place] [facility] [address] [id number] [place] [address]- 2080 Dec, [facility] [place] [facility] [address] [id number] [place] [address]- 0034 Dec, [facility] [place] [facility] [address] [id number] [place] [address]- 7153 Dec, [facility] [place] [facility] [address] [id number] [place] [address]- 9052 November, [facility] [place] [facility] [address] [id number] [place] [address]- 8391 November, [facility] [place] [facility] [address] [id number] [place] [address]- 5218 November, [facility] [place] [facility] [address] [id number] [place] [address]- 8856 November, [facility] [place] [facility] [address] [id number] [place] [address]- 4922 November, [facility] [place] [facility] [address] [id number] [place] [address]- 9292 November, [facility] [place] [facility] [address] [id number] [place] [address]- 5650 Oct, [facility] [place] [facility] [address] [id number] [place] [address]- 3292 Oct, [facility] [place] [facility] [address] [id number] [place] [address]- 9106 16 Oct, 2013 [facility] [place] [facility] [address] [id number] [place] [address] 7966 Oct, [facility] [address] [id number] [place] [address] 9346 Sep, [facility] [address] [id number] [place] [address] 2546 Sep, [facility] [address] [id number] [place] [address]- 4651 Sep, [facility] [address] [id number] [place] [address] 2549 Sep, [facility] [address] [id number] [place] [address] 3396 Sep, [facility] [address] [id number] [place] [address]- 2534 Aug, [facility] [address] [id number] [place] [address]- 4887 Aug, [facility] [address] [id number] [place] [address]- 3991 Aug, [facility] [address] [id number] [place] [address]- 1909 Aug, [facility] [address] [id number] [place] [address]- 0749 Aug, [facility] [address] [place] [id number] May, [facility] [address] [id number] [place] [address]- 1674 May, [facility] [address] [id number] [place] [address]- 2546 May, [facility] [address] [id number] [place] [address]- 2546 May, [facility] [address] [id number] [place] [address] 3428 May, [facility] [place] [facility] [address] [id number] [place] [address]- 6098 Apr, [facility] [place] [facility] [address] [id number] [place] [address]- 6927 Apr, [facility] [place] [facility] [address] [id number] [place] [address]- 0670 Apr, [facility] [place] [facility] [address] [id number] [place] [address]- 7954 Apr, [facility] [place] [facility] [address] [id number] [place] [address]- 8369 Apr, [facility] [place] [facility] [address] [id number] [place] [address]- 7476 Apr, [facility] [place] [facility] [address] [id number] [place] [address]- 3337 Apr, [facility] [place] [facility] [address] [id number], [place] [address]- 5127 Mar, [facility] [place] [facility] [address] [id number] [place] [address]- 5449 25 Mar, 2013 [facility] [place] [facility] [address] [id number] [place] [address]- 3738 24 Mar, 2013 [facility] [place] [facility] [address] [id number], [place] [address]- 6229 16 Mar, 2013 [facility] [place] [facility] [address] [id number], [place] [address]- 2321 12 Mar, 2013 [facility] [place] [facility] [address] [id number] [place] [address]- 2724 06 Mar, 2013 [facility] [place] [facility] [address] [id number], [place] [address]- 7671 Feb, [facility] [place] [facility] [address] [id number] [place] [address] Feb, [facility] [place] [facility] [address] [id number] [place] [address]- 2788 Feb, [facility] [place] [facility] [address] [id number] [place] [address]- 9490 Feb, [facility] [place] [facility] [address] [id number] [place] [address]- 1378 Feb, [facility] [place] [facility] [address] [id number] [place] [address]- 6624 Feb, [facility] [place] [facility] [address] [id number] [place] [address]- 3421 Jan, [facility] [place] [facility] [address] [id number] [place] [address]- 7589 Dec, [facility] [place] [facility] [address] [id number] [place] [address]- 0379 Dec, [facility] [place] [facility] [address] [id number] [place] [address]- 7838 Dec, [facility] [place] [facility] [address] [id number] [place] [address]- 3774 Dec, [facility] [place] [facility] [address] [id number] [place] [address]- 5688 Dec, [facility] [place] [facility] [address] [id number] [place] [address]- 0683 Dec, [facility] [place] [facility] [address] [id number] [place] [address]- 7894 Dec, [facility] [place] [facility] [address] [id number] [place] [address]- 6508 Dec, [facility] [place] [facility] [address] [id number] [place] [address]- 8842 Dec, [facility] [place] [facility] [address] [id number] [place] [address]- 7075 November, [facility] [place] [facility] [address] [id number] [place] [address]- [address] November, [facility] [address] [facility] [id number], [place] [address] Oct, [facility] [address] [facility] [id number] [address]31 Sep, [facility] [address] [facility] [id number], [place] [address]272 Sep, [facility] [address] [facility] [id number], [place] [address] Sep, [facility] [address] [facility] [id number], [place]84 Sep, [facility] [address] [facility] [id number], [place] [address] 9244 Aug, [facility] [id number] [address] 9664 Aug, [facility] [id number], [place] [address] 6800 Jul, [facility] [address] [facility] [id number] [address] 0677 Jul, [facility] [address] [id number] Jul, [facility] [address] [id number], [place] [address] 4407 Sep, [facility] [address] [id number], [place] [address]- [address]83 Sep, [facility] [address] [facility] [id number], [place] [address]- 4545 Sep, IMMUNIZATIONS No Known Immunizations SOCIAL HISTORY Never Assessed REASON FOR VISIT Controlled Med Refill 08/16/17 PLAN OF CARE VITAL SIGNS MEDICATIONS Medication [...]
--- OUTSIDE RECORDS SUMMARY | 2018-06-09 17:42 | XMS REPORT ---
Author Author LINDA BENTLEY [facility] Address [address] [place] [address] Care Team Providers Care Industrial Equipment Wirer Name Role Phone LINDA BENTLEY Unavailable PROBLEMS Type Condition ICD9-CM Code WMI25-BY Code Onset Dates Condition Status SNOMED Code Problem Abdominal pain, left lower quadrant R10.32 Active 286569579 Problem Mood disorder F39 Active 45806501 Problem Hypertension, benign I10 Active 57678223 Problem Chronic pain syndrome G89.4 Active 605939729 Problem Attention to urostomy Z43.6 Active 153390090 Problem Anxiety F41.9 Active 10453200 Problem Neuropathy G62.9 Active 161502055 Problem Malignant neoplasm of colon, unspecified part of colon C18.9 Active 575940472 Problem Polyneuropathy G62.9 Active 36963895 Problem Incontinence of feces, unspecified fecal incontinence type R15.9 Active 16245687 Problem Chronic fatigue, unspecified R53.82 Active 509127235 Problem Hydronephrosis with ureteral stricture, not elsewhere classified N13.1 Active 75499279 Problem Primary insomnia F51.01 Active 554209095 Problem 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 678452823 ALLERGIES No Information ENCOUNTERS Encounter Location Date Diagnosis [facility] [address], [place] [address] Dec, [facility] [address], [place] [address] November, Polyneuropathy G62.9 [facility] [address], [place] [address] November, Medicare annual wellness visit, initial Z00.00 [facility] [address], [place] [address] November, Mood disorder F39 [facility] [id number] [place] [address] 61064- 5568 Oct, Polyneuropathy G62.9 [facility] [address] [address]- [address] Oct, [facility] [address] [address] Oct, [facility] [address] [address]- 25[address] Oct, Mood disorder F39 ; Attention to urostomy Z43.6 ; Chronic pain syndrome G89.4 and Polyneuropathy G62.9 [facility] [address] [address] Sep, Polyneuropathy G62.9 [facility] [address] [address]- 1359 Sep, [facility] [address] [address]- 6[address] Sep, Polyneuropathy G62.9 [facility] [id number] [place] [address] 54648- 4217 Aug, Polyneuropathy G62.9 [facility] [id number] [place] [address] 93806- 6968 Aug, Malignant neoplasm of colon, unspecified part of colon C18.9 and Polyneuropathy G62.9 [facility] [id number] [place] [address] 53573- 0300 Aug, Neuropathy G62.9 and Polyneuropathy G62.9 [facility] [address] [address]- [address] Jul, Encounter for drug screening Z02.83 [facility] [id number] [place] [address] 85243- 4985 Jul, Polyneuropathy G62.9 [facility] [address] [place] [address] Jul, [facility] [id number] [place] [address] 70403- 8320 Jul, Neuropathy G62.9 and Anxiety F41.9 [facility] [id number] [place] [address] 02399- 7116 Jul, [facility] [id number] [place] [address] 96418- 7381 Jul, [facility] [id number] [place] [address] 38721- 1818 Jul, [facility] [address] [address]- 4348 Jul, Polyneuropathy G62.9 [facility] [id number] [place] [address] 76440- 1403 Jul, [facility] [id number] [place] [address] 47166- 3729 Jun, [facility] [id number] [place] [address] 40804- 9399 Jun, [facility] [id number] [place] [address] 80595- 6567 Jun, [facility] [id number] [place] [address] 07 Jun, 2017 Encounter for dental examination Z01.20 [facility] [id number] [place] [address] 51622- 4627 04 Jun, 2017 Polyneuropathy G62.9 and Anxiety F41.9 [facility] [id number] [place] [address] 26628- 9046 Jun, [facility] [id number] [place] [address] May, Dental examination Z01.20 [facility] [id number] [place] [address] 42739- 2848 May, Polyneuropathy G62.9 [facility] [id number] [place] [address] 95686- 4565 Apr, Polyneuropathy G62.9 [facility] [id number] [place] [address] 45524- 3083 Apr, Polyneuropathy G62.9 [facility] [id number] [place] [address] 16123- 4029 Apr, Hypertension, benign I10 ; Polyneuropathy G62.9 and Anxiety F41.9 [facility] [address] [address] Apr, Primary insomnia F51.01 and Polyneuropathy G62.9 [facility] [id number] [place] [address] 42708- 4844 Apr, Primary insomnia F51.01 and Polyneuropathy G62.9 [facility] [id number] [place] [address] 50179- 7927 Mar, Primary insomnia F51.01 [facility] [id number] [place] [address] 60644- 1103 Mar, [facility] [id number] [place] [address] 85420- 4636 Mar, Polyneuropathy G62.9 [facility] [id number] [place] [address] 00984- 5239 Feb, Primary insomnia F51.01 [facility] [id number] [place] [address] 92113- 0145 Feb, [facility] [id number] [place] [address] 37742- 1601 Feb, [facility] [id number] [place] [address] 89689- 6403 Feb, Polyneuropathy G62.9 [facility] [address], [place] [address]- 4097 Feb, Primary insomnia F51.01 [facility] [id number] [place] [address], [place] [address]- 4064 Jan, [facility] [id number] [address]- 5[address] Jan, [facility] [id number] [place] [address] 56493- 4685 Dec, [facility] [id number] [place] [address] 63682- 5160 Dec, Primary insomnia F51.01 [facility] [id number] [place] [address] 82746- 6212 Dec, Primary insomnia F51.01 [facility] [id number] [place] [address] 75217- 1198 Dec, [facility] [id number] [place] [address] 85917- 7010 Dec, [facility] [id number] [place] [address] 33391- 8983 Dec, [facility] [id number] [place] [address] 73586- 1615 Dec, [facility] [id number] [place] [address] 99826- 1694 November, Primary insomnia F51.01 and Polyneuropathy G62.9 [facility] [address], [place] [address]- 9247 November, [facility] [id number] [place] [address] 49480- 1622 November, Abdominal pain, left lower quadrant R10.32 [facility] [address], [place] [address]- 0877 November, [facility] [id number] [place] [address] 06737- 0531 Oct, [facility] [id number] [place] [address] 05550- 9668 Oct, Abdominal pain, left lower quadrant R10.32 ; 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 and Neuropathy G62.9 [facility] [id number] [place] [address] 33637- 3229 Oct, [facility] [id number] [place] [address] 29500- 3955 Sep, [facility] [id number] [place] [address] [id number] Sep, [facility] [id number] [place] [address] 17461- 8010 Sep, [facility] [id number] [place] [address] 35259- 5354 Aug, [facility] [id number] [place] [address] 63747- 3118 Aug, [facility] [id number] [place] [address] 80059- 9886 Aug, Abdominal pain, left lower quadrant R10.32 ; Neuropathy G62.9 and Anxiety F41.9 [facility] [address] [place] [address] Jul, [facility] [id number] [place] [address] 50707- 5117 Jul, [facility] [id number] [place] [address] 70616 -4744 Jul, [facility] [id number] [place] [address] 31997- 9604 Jul, [facility] [id number] [place] [address] 65319- 6811 Jul, [facility] [id number] [place] [address] 44966- 3975 Jun, [facility] [address], [place] [address]- 4059 May, [facility] [id number] [place] [address] 61432- 6556 May, [facility] [id number] [place] [address] 82425- 2396 Apr, [facility] [id number] [place] [address] 18909- 5548 Apr, Muscle spasms of both lower extremities M62.838 and Cellulitis, unspecified cellulitis site L03.90 [facility] [id number] [place] [address] 73376- 7525 Apr, [facility] [id number] [place] [address] 94582- 9356 23 Mar, 2016 Generalized abdominal pain R10.84 [facility] [id number] [place] [address] 53687- 6455 20 Mar, 2016 [facility] [id number] [place] [address] 51535- 0587 14 Mar, 2016 [facility] [id number] [place] [address] 46482- 5226 14 Mar, 2016 [facility] [address] [place] [address] 91154- 7896 13 Mar, 2016 [facility] [id number] [place] [address] 35535- 0243 12 Mar, 2016 [facility] [address], [place] [address]- 3158 09 Mar, 2016 [facility] [id number] [place] [address] 35858- 4778 06 Mar, 2016 [facility] [address], [place] [address]- 4124 Feb, Other specified diseases of anus and rectum K62.89 [facility] [address] [facility] [id number] [place] [address]- 8430 Feb, [facility] [address] [facility] [id number] [place] [address], [place] [address]- 1464 Feb, Dizziness R42 [facility] [address] [facility] [id number] [place] [address]- 0459 Feb, [facility] [address] [facility] [id number] [place] [address], [place] [address]- 1503 Jan, Polyneuropathy G62.9 [facility] [address] [facility] [id number] [place] [address], [place] [address]- 6126 Jan, Other specified diseases of anus and rectum K62.89 [facility] [address] [facility] [id number] [place] [address]- 0850 Jan, [facility] [address] [facility] [id number] [place] [address] 26239 -9816 Jan, [facility] [address] [facility] [id number] [place] [address]- 8131 Jan, [facility] [id number] [place] [address], [place] [address]- 6173 Jan, Dizziness R42 [facility] [address], [place] [address]- 8742 Dec, [facility] [address], [place] [address]- 2133 Dec, [facility] [address] [facility] [id number], [place] [address]- 4333 Dec, [facility] [id number] [place] [address], [place] [address]- 1949 Dec, Dizziness R42 [facility] [address] [facility] [id number], [place] [address]- 1666 November, [facility] [id number] [place] [address] 50313- 6427 Oct, [facility] [id number] [place] [address] 88224- 2158 Oct, [facility] [id number] [place] [address] 72725- 1255 Oct, [facility] [id number] [place] [address] 26415- 8263 Oct, [facility] [id number] [place] [address] 38485- 9308 Sep, [facility] [id number] [place] [address] 87429- 9851 Sep, Primary insomnia F51.01 [facility] [id number] [place] [address] 23775- 0306 Sep, Primary insomnia F51.01 [facility] [id number] [place] [address] 14315- 8508 Sep, [facility] [id number] [place] [address] 55797- 6608 Aug, [facility] [id number] [place] [address] 03405- 4081 Aug, [facility] [id number] [place] [address] 37043- 7239 Aug, Primary insomnia F51.01 ; Mood disorder F39 ; Nausea and vomiting, unspecified intactability, vomiting of unspecified type R11.2 and Diarrhea R19.7 [facility] [id number] [place] [address] 94760- 2204 Aug, [facility] [id number] [place] [address] 06975- 2136 05 Aug, 2015 Folliculitis L73.9 [facility] [id number] [place] [address] 49571- 2052 Aug, [facility] [id number] [address]- 4235 Aug, [facility] [id number] [place] [address] 16528- 6704 Jul, Folliculitis L73.9 [facility] [address], [place] [address]- 2859 Jul, [facility] [id number] [place] [address] 71481- 7472 Jun, Folliculitis L73.9 [facility] [id number] [place] [address] 93434- 1257 Jun, [facility] [id number] [place] [address] 90541- 5366 May, Polyneuropathy G62.9 [facility] [id number] [place] [address] 71269- 9721 May, Other specified diseases of anus and rectum K62.89 [facility] [id number] [place] [address] 22095- 6344 May, [facility] [id number] [place] [address] 14807- 1858 May, Primary insomnia F51.01 [facility] [address] [address]- 3362 May, [facility] [id number] [place] [address] 61703- 8423 May, [facility] [id number] [place] [address] 67797- 4383 Apr, Other specified diseases of anus and rectum K62.89 ; Chronic fatigue R53.82 ; Urinary tract infection, site not specified N39.0 and Enterococcus as the cause of diseases classified elsewhere B95.2 [facility] [address], [place] [address]- 9491 Apr, [facility] [id number] [address]- 4460 15 Apr, 2015 [facility] [address] [facility] [id number], [place] [address] 14 Apr, 2015 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 [facility] [address] [id number], [place] [address] 05 Apr, 2015 [facility] [address] [facility] [id number], [place] [address] 26 Mar, 2014 [facility] [address] [facility] [id number], [place] [address] 23 Mar, 2014 [facility] [address] [facility] [id number] [place] [address]46 17 Mar, 2015 [facility] [address] [facility] [id number], [place] [address] 14 Mar, 2015 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 [facility] [address] [id number], [place] [address] 12 Mar, 2015 [facility] [address] [facility] [id number], [place] [address] 11 Mar, 2015 [facility] [address] [id number], [place] [address] 11 Mar, 2015 [facility] [address] [facility] [id number], [place] [address] 2543 10 Mar, 2015 [facility] [address] [facility] [id number], [place] [address] Feb, [facility] [address] [facility] [id number], [place] [address] Feb, [facility] [address] [facility] [id number], [place] [address] Feb, [facility] [address] [facility] [id number], [place] [address] 30 Jan, 2015 [facility] [address] [facility] [id number], [place] [address] Jan, Nausea 787.02 and Neuropathy 355.9 [facility] [id number] [place] [address] Jan, [facility] [address] [id number], [place] [address] Jan, [facility] [id number] [place] [address] Jan, [facility] [address] [id number][place] [id number] Jan, Dental examination V72.2 [facility] [facility] [id number] [place] [address]- 2438 Jan, [facility] [id number] [place] [address] 01613- 9256 Dec, [facility] [id number] [place] [address] 07027- 4157 Dec, [facility] [id number] [place] [address] 39535- 9664 Dec, Neuropathy 355.9 [facility] [id number] [place] [address] 68239- 0085 November, [facility] [address] [address] 1324 November, [facility] [address], [place] [address] November, [facility] [address], [place] [address] 0190 Oct, [facility] [id number] [id number] [address] Oct, [facility] [address], [place] [address] 34[address] Sep, [facility] [id number] [address] 4137 Sep, [facility] [place] [facility] [address] [id number] [place] [address]- 3053 Sep, [facility] [place] [facility] [address] [facility] [id number] [place] [address]- 9417 Sep, [facility] [place] [facility] [address] [facility] [id number] [place] [address]- 6052 Sep, [facility] [place] [facility] [address] [facility] [id number] [place] [address]- 7379 Sep, [facility] [place] [facility] [address] [facility] [id number] [place] [address]- 7534 Sep, [facility] [place] [facility] [address] [facility] [id number] [place] [address]- 6176 Sep, [facility] [place] [facility] [address] [id number] [place] [address] 8037 Aug, 2014 [facility] [place] [facility] [address] [facility] [id number] [place] [address]- 0550 Aug, 2014 [facility] [place] [facility] [address] [id number] [place] [place] [address]- 6842 Aug, 2014 [facility] [place] [facility] [address] [id number] [place] [place] [address]- 3746 Aug, 2014 [facility] [place] [facility] [address] [id number] [place] [place] [address]- 5576 Aug, 2014 [facility] [place] [facility] [address] [facility] [id number] [address]- 7958 Aug, 2014 [facility] [place] [facility] [address] [facility] [id number] [place] [address] Aug, 2014 [facility] [place] [facility] [address] [facility] [id number] 2457 Aug, 2014 [facility] [place] [facility] [address] [id number] [place] [place] [address]- 2851 Jul, [facility] [place] [facility] [address] [id number] [place] [address]- 4091 Jul, [facility] [place] [facility] [address] [id number] [place] [address]- 7529 Jun, [facility] [place] [facility] [address] [id number] [place] [address]- 8113 Jun, [facility] [place] [facility] [address] [id number] [place] [address]- 6044 Jun, [facility] [place] [facility] [address] [id number] [place] [address]- 4775 Jun, [facility] [place] [facility] [address] [id number] [place] [address]- 2726 Jun, [facility] [place] [facility] [address] [id number] [place] [address]- 4709 Jun, [facility] [place] [facility] [address] [id number] [place] [address]- 7442 Jun, [facility] [place] [facility] [address] [id number] [place] [address]- 1643 Jun, [facility] [place] [facility] [address] [id number] [place] [address]- 6129 Jun, [facility] [place] [facility] [address] [id number] [place] [address]- 5216 Jun, [facility] [place] [facility] [address] [id number], [place] [address]- 6696 Jun, [facility] [place] [facility] [address] [id number] [place] [address]- 6094 May, [facility] [place] [facility] [address] [id number] [place] [address]- 5456 May, [facility] [place] [facility] [address] [id number] [place] [address]- 9856 May, [facility] [place] [facility] [address] [id number], [place] [address]- 7454 May, [facility] [place] [facility] [address] [id number] [place] [address]- 0386 May, [facility] [place] [facility] [address] [id number] [place] [address]- 0010 May, [facility] [place] [facility] [address] [id number] [place] [address]- 2411 May, [facility] [place] [facility] [address] [id number] [place] [address]- 1931 May, [facility] [place] [facility] [address] [id number] [place] [address]- 9391 May, [facility] [place] [facility] [address] [id number] [place] [address]- 3087 Apr, [facility] [place] [facility] [address] [id number] [place] [address]- 4261 Apr, [facility] [place] [facility] [address] [id number] [place] [address]- 9779 Apr, [facility] [place] [facility] [address] [id number] [place] [address]- 3185 Apr, [facility] [place] [facility] [address] [facility] [id number] [place] [address]- 6564 Apr, [facility] [place] [facility] [address] [id number] [place] [address]- 7816 Mar, [facility] [place] [facility] [address] [id number] [place] [address]- 8071 Mar, [facility] [place] [facility] [address] [id number] [place] [address]- 8390 Feb, [facility] [place] [facility] [address] [id number] [place] [address]- 6519 Feb, [facility] [place] [facility] [address] [facility] [id number] [place] [address]- 0917 Feb, [facility] [place] [facility] [address] [id number] [place] [address]- 8299 Feb, [facility] [place] [facility] [address] [id number] [facility] [place] [address]- 0777 Feb, [facility] [place] [facility] [address] [id number] [place] [address]- 9946 Feb, [facility] [place] [facility] [address] [id number] [place] [address]- 7516 Jan, [facility] [place] [facility] [address] [id number] [place] [address]- 7283 Jan, [facility] [place] [facility] [address] [id number] [place] [address]- 5402 Jan, [facility] [place] [facility] [address] [id number] [place] [address]- 4207 Jan, [facility] [place] [facility] [address] [id number] [place] [address]- 7026 Jan, [facility] [place] [facility] [address] [id number] [place] [address]- 9110 Jan, [facility] [place] [facility] [address] [id number] [place] [address]- 1141 Jan, [facility] [place] [facility] [address] [id number] [place] [address]- 3272 Jan, [facility] [place] [facility] [address] [id number] [place] [address]- 2270 Jan, [facility] [place] [facility] [address] [id number] [place] [address]- 8635 Jan, [facility] [place] [facility] [address] [id number] [place] [address]- 0036 Jan, [facility] [place] [facility] [address] [id number] [place] [address]- 7476 Dec, [facility] [place] [facility] [address] [id number] [place] [address]- 2329 Dec, [facility] [place] [facility] [address] [id number] [place] [address]- 3427 Dec, [facility] [place] [facility] [address] [id number] [place] [address]- 3137 Dec, [facility] [place] [facility] [address] [id number] [place] [address]- 1229 Dec, [facility] [place] [facility] [address] [id number] [place] [address]- 5826 Dec, [facility] [place] [facility] [address] [id number] [place] [address]- 3454 November, [facility] [place] [facility] [address] [id number] [place] [address]- 6500 November, [facility] [place] [facility] [address] [id number] [place] [address]- 8621 November, [facility] [place] [facility] [address] [id number] [place] [address]- 9442 November, [facility] [place] [facility] [address] [id number] [place] [address]- 7527 November, [facility] [place] [facility] [address] [id number] [place] [address]- 9512 November, [facility] [place] [facility] [address] [id number] [place] [address]- 9684 Oct, [facility] [place] [facility] [address] [id number] [place] [address]- 9817 Oct, [facility] [place] [facility] [address] [id number] [place] [address]- 6905 Oct, [facility] [place] [facility] [address] [id number] [place] [address]- 8710 Oct, [facility] [place] [facility] [address] [id number] [place] [address]- 4396 Sep, [facility] [place] [facility] [address] [id number] [place] [address]- 2138 Sep, [facility] [address] [id number] [place] [address]- 7495 Sep, [facility] [address] [id number] [place] 38[address] Sep, [facility] [address] [id number] [place] [address]- 1331 Sep, [facility] [address] [id number] [place] [address]- 4738 Aug, [facility] [address] [id number] [place] [address]- 3136 Aug, [facility] [address] [id number] [place] [address]- 3083 Aug, [facility] [address] [id number] [place] [address]- 0026 Aug, [facility] [address] [facility] [id number] [place] [address]- 3506 Aug, [facility] [address] [place] [id number] May, [facility] [address] [id number] [place] [address]- 6854 May, [facility] [address] [id number] [place] [address]- 2502 May, [facility] [address] [id number], [place] [address]- 9744 May, [facility] [address] [id number] [place] [address]- 8872 May, [facility] [address] [id number] [place] [address]- 3261 Apr, [facility] [address] [id number] [place] [address]- 6904 Apr, [facility] [place] [facility] [address] [id number] [place] [address]- 8802 Apr, [facility] [place] [facility] [address] [id number] [place] [address]- 7996 Apr, [facility] [place] [facility] [address] [id number] [place] [address] 2546 Apr, [facility] [place] [facility] [address] [id number] [place] [address]- 1446 Apr, [facility] [place] [facility] [address] [id number] [place] [address]- 8059 Apr, [facility] [place] [facility] [address] [id number] [place] [address]- 2243 28 Mar, 2013 [facility] [place] [facility] [address] [id number] [place] [address]- 9096 Mar, [facility] [place] [facility] [address] [id number] [place] [address]- 8240 24 Mar, 2013 [facility] [place] [facility] [address] [id number] [place] [address]- 3121 16 Mar, 2013 [facility] [place] [facility] [address] [id number] [place] [address]- 4727 12 Mar, 2013 [facility] [place] [facility] [address] [id number] [place] [address]- 6559 Mar, [facility] [place] [facility] [address] [id number] [place] [address]- 4652 Feb, [facility] [place] [facility] [address] [id number] [place] [address] 2547 Feb, [facility] [place] [facility] [address] [id number] [place] [address] 2549 Feb, [facility] [place] [facility] [address] [id number] [place] [address] 2545 Feb, [facility] [place] [facility] [address] [id number] [place] [address]- 4070 Feb, [facility] [address] [id number] [place] [address]- 4895 Feb, [facility] [place] [facility] [address] [id number] [place] [address]- 8769 Jan, [facility] [place] [facility] [address] [id number] [place] [address]- 2708 Dec, [facility] [place] [facility] [address] [id number] [place] [address]- 1455 Dec, [facility] [place] [facility] [address] [id number] [place] [address]- 8703 Dec, [facility] [place] [facility] [address] [id number] [place] [address]- 5236 Dec, [facility] [place] [facility] [address] [id number] [place] [address]- 1471 Dec, [facility] [place] [facility] [address] [id number], [place] [address]- 5060 Dec, [facility] [place] [facility] [address] [id number] [place] [address]- 5496 Dec, [facility] [place] [facility] [address] [id number] [place] [address]- 0813 Dec, [facility] [place] [facility] [address] [id number], [place] [address]- 9153 Dec, [facility] [place] [facility] [address] [id number], [place] [address]- 7651 November, [facility] [place] [facility] [address] [id number] [place] [address]- 4664 November, [facility] [place] [facility] [address] [id number], [place] [address]- 6584 Oct, [facility] [place] [facility] [address] [id number] [place] [address]- 3588 Sep, [facility] [place] [facility] [address] [address]- [address]209 20 Sep, 2012 [facility] [address] [address]- 5116 15 Sep, 2012 [facility] [address] [address]- 3710 11 Sep, 2012 [facility] [address] [address]- 9925 Aug, [facility] [address] [address]- 2118 Aug, [facility] [id number] [place] [address]85- 5263 Jul, [facility] [address] [address]- 3391 Jul, [facility] [id number] [place] [address] 19428- 1477 Jul, [facility] [address] [address]- 4774 Sep, [facility] [address], [place] [address]- 3435 17 Sep, 2011 [facility] [address], [place] [address]- 5700 10 Sep, 2011 IMMUNIZATIONS No Known Immunizations SOCIAL HISTORY Never Assessed REASON FOR VISIT refill PLAN OF CARE VITAL SIGNS MEDICATIONS Unknown [...]
--- OUTSIDE RECORDS SUMMARY | 2018-06-09 17:42 | XMS REPORT ---
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 898929817 Problem Primary insomnia F51.01 Active 026862623 Problem Chronic fatigue, unspecified R53.82 Active 358846021 Problem Polyneuropathy G62.9 Active 72147037 Problem Anxiety F41.9 Active 68767874 Problem Hypertension, benign I10 Active 50523483 Problem Abdominal pain, left lower quadrant R10.32 Active 417952828 Problem Neuropathy G62.9 Active 736090028 Problem Mood disorder F39 Active 27931827 ALLERGIES No Information SOCIAL HISTORY Never Assessed PLAN OF CARE VITAL SIGNS MEDICATIONS Medication Instructions Dosage Frequency Start Date End Date Duration Status Oxycodone HCl 30 MG Orally 2 times a day 1 tablet as needed 12h Dec, 28 days Active RESULTS No Results [...] 09/21/16 Hospitalization History Large bowel obstruction, Dehydration-[facility] 01/01/17
--- OUTSIDE RECORDS SUMMARY | 2018-06-09 17:43 | XMS REPORT ---
Author Author LINDA BENTLEY Organization [facility] Address [address] [place] [address] Care Team Providers Care Account Receivable Associate Name Role Phone LINDA BENTLEY Unavailable PROBLEMS Type Condition ICD9-CM Code RYK12-MG Code Onset Dates Condition Status SNOMED Code Problem Abdominal pain, left lower quadrant R10.32 Active 827157534 Problem Mood disorder F39 Active 00531107 Problem Hypertension, benign I10 Active 43119908 Problem Chronic pain syndrome G89.4 Active 544072420 Problem Attention to urostomy Z43.6 Active 226977915 Problem Anxiety F41.9 Active 16830224 Problem Neuropathy G62.9 Active 020731048 Problem Malignant neoplasm of colon, unspecified part of colon C18.9 Active 406152079 Problem Polyneuropathy G62.9 Active 61166063 Problem Incontinence of feces, unspecified fecal incontinence type R15.9 Active 48602405 Problem Chronic fatigue, unspecified R53.82 Active 691575180 Problem Hydronephrosis with ureteral stricture, not elsewhere classified N13.1 Active 58186868 Problem Primary insomnia F51.01 Active 212546920 Problem 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 650781063 ALLERGIES Substance Reaction Event Type Date Status Morphine Unknown Drug Allergy Jun, Active Codeine Unknown Drug Allergy Jun, Active ENCOUNTERS Encounter Location Date Diagnosis [facility] [address] [facility] [id number] [address] Jan, [facility] [id number] [address] 1794 Dec, Mood disorder F39 [facility] [address] [id number] [address] 8295 November, Polyneuropathy G62.9 [facility] [address] [id number] [address] 7420 November, Medicare annual wellness visit, initial Z00.00 [facility] [address] [address] 4[address] November, Mood disorder F39 [facility] [address] [address] 8835 Oct, Polyneuropathy G62.9 [facility] [id number] [place] [address] 38527- 1191 Oct, [facility] [id number] [place] [address] 87738- 7124 Oct, [facility] [id number] [place] [address] 86905- 0546 Oct, Mood disorder F39 ; Attention to urostomy Z43.6 ; Chronic pain syndrome G89.4 and Polyneuropathy G62.9 [facility] [id number] [place] [address] 67843- 3554 Sep, Polyneuropathy G62.9 [facility] [id number] [place] [address] 76132- 7259 Sep, [facility] [id number] [place] [address] 36575- 9289 Sep, Polyneuropathy G62.9 [facility] [id number] [place] [address] 14781- 9221 Aug, Polyneuropathy G62.9 [facility] [address] [address] 8246 Aug, Malignant neoplasm of colon, unspecified part of colon C18.9 and Polyneuropathy G62.9 [facility] [address] [address]- 7785 Aug, Neuropathy G62.9 and Polyneuropathy G62.9 [facility] [address] [address] 2048 Jul, Encounter for drug screening Z02.83 [facility] [address] [address] 8727 Jul, Polyneuropathy G62.9 [facility] [address] [address]- 3135 Jul, [facility] [id number] [place] [address] 35122- 6817 Jul, Neuropathy G62.9 and Anxiety F41.9 [facility] [address] [address] 4750 Jul, [facility] [id number] [place] [address] 11733- 1631 Jul, [facility] [id number] [place] [address] 89816- 7661 Jul, [facility] [id number] [place] [address] 46526- 2085 Jul, Polyneuropathy G62.9 [facility] [id number] [place] [address] 76284- 9683 Jul, [facility] [id number] [place] [address] 84058- 8708 Jun, [facility] [id number] [place] [address] 83083- 1000 Jun, [facility] [address] [address]- 7003 Jun, [facility] [id number] [address] Jun, Encounter for dental examination Z01.20 [facility] [address] [address]- 3564 Jun, Polyneuropathy G62.9 and Anxiety F41.9 [facility] [id number] [place] [address] 37248- 8962 Jun, [facility] [address] [id number] [address] May, Dental examination Z01.20 [facility] [id number] [place] [address] 92199- 8513 May, Polyneuropathy G62.9 [facility] [id number] [place] [address] 85954- 4913 Apr, Polyneuropathy G62.9 [facility] [id number] [place] [address] 04814- 3477 Apr, Polyneuropathy G62.9 [facility] [id number] [place] [address] 64185- 1172 Apr, Hypertension, benign I10 ; Polyneuropathy G62.9 and Anxiety F41.9 [facility] [id number] [place] [address] 84476- 9752 Apr, Primary insomnia F51.01 and Polyneuropathy G62.9 [facility] [id number] [place] [address] 52776- 5398 Apr, Primary insomnia F51.01 and Polyneuropathy G62.9 [facility] [id number] [place] [address] 38109- 5214 Mar, Primary insomnia F51.01 [facility] [id number] [place] [address] 80673- 4512 Mar, [facility] [id number] [place] [address] 89253- 2719 Mar, Polyneuropathy G62.9 [facility] [id number] [place] [address] 82583- 6469 Feb, Primary insomnia F51.01 [facility] [id number] [place] [address] 30673- 0464 Feb, [facility] [id number] [place] [address] 43390- 0917 Feb, [facility] [address] [address]- 2374 Feb, Polyneuropathy G62.9 [facility] [address] [address]- 3116 Feb, Primary insomnia F51.01 [facility] [address] [address]- 1473 Jan, [facility] [address] [address]- 2901 Jan, [facility] [address] [address]- 7006 Dec, [facility] [address] [address]- 4033 Dec, Primary insomnia F51.01 [facility] [address] [address]- 8974 Dec, Primary insomnia F51.01 [facility] [address] [address]- 7192 Dec, [facility] [address] [address]- 5731 Dec, [facility] [address] [address]- 2498 Dec, [facility] [address] [address]- 0733 Dec, [facility] [id number] [address]- 2586 November, Primary insomnia F51.01 and Polyneuropathy G62.9 [facility] [address] [address]- 5436 November, [facility] [address] [address]- 7509 November, Abdominal pain, left lower quadrant R10.32 [facility] [address] [address]- 4579 November, [facility] [id number] [place] [address] 280424- 8451 Oct, [facility] [id number] [place] [address] 37038- 7449 Oct, Abdominal pain, left lower quadrant R10.32 ; 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 and Neuropathy G62.9 [facility] [id number] [place] [address] 73667- 6245 Oct, [facility] [id number] [place] [address] 25246- 1583 Sep, [facility] [id number] [place] [address] [id number] Sep, [facility] [id number] [place] [address] 39783- 8357 Sep, [facility] [id number] [place] [address] 05065- 0651 Aug, [facility] [id number] [place] [address] 65126- 6893 Aug, [facility] [id number] [place] [address] 74203- 0095 Aug, Abdominal pain, left lower quadrant R10.32 ; Neuropathy G62.9 and Anxiety F41.9 [facility] [address] [place] [address] Jul, [facility] [id number] [place] [address] 92669- 6800 Jul, [facility] [address] [address]8439 Jul, [facility] [id number] [place] [address] 11062- 5813 Jul, [facility] [address] [address]- 2680 Jul, [facility] [address] [address]- 4213 Jun, [facility] [address] [address]- 8025 May, [facility] [id number] [place] [address] 30904- 2796 May, [facility] [id number] [place] [address] 89825- 2746 Apr, [facility] [id number] [place] [address] 93000- 1811 Apr, Muscle spasms of both lower extremities M62.838 and Cellulitis, unspecified cellulitis site L03.90 [facility] [address] [address]- 9464 Apr, [facility] [id number] [place] [address] 18128- 3694 23 Mar, 2016 Generalized abdominal pain R10.84 [facility] [address] [address]- 8268 20 Mar, 2016 [facility] [address] [address]- 0231 14 Mar, 2016 [facility] [address] [address]- 0225 14 Mar, 2016 [facility] [address] [address]- 8446 13 Mar, 2016 [facility] [address] [address]- 7475 12 Mar, 2016 [facility] [address] [address]- 5209 09 Mar, 2016 [facility] [id number] [place] [address] 96345- 5792 Mar, [facility] [address] [facility] [id number] [address]- 2771 Feb, Other specified diseases of anus and rectum K62.89 [facility] [address] [facility] [id number] [place] [address] 2546 Feb, [facility] [id number] [place] [address] 52567 2546 Feb, Dizziness R42 [facility] [address] [facility] [id number] [place] [address] 32770- 5160 Feb, [facility] [id number] [place] [address], [place] [address]- 4537 Jan, Polyneuropathy G62.9 [facility] [id number] [place] [address] 08194- 2342 Jan, Other specified diseases of anus and rectum K62.89 [facility] [address] [address]- 0700 Jan, [facility] [address] [address] -9890 Jan, [facility] [address] [address]- 2609 Jan, [facility] [address] [address]- 3001 Jan, Dizziness R42 [facility] [address] [address]- 3923 Dec, [facility] [address] [address]- 3010 Dec, [facility] [address] [address]- 9129 Dec, [facility] [address] [address]- 7353 Dec, Dizziness R42 [facility] [address] [address]- 2919 November, [facility] [id number] [place] [address] 03184- 5326 Oct, [facility] [address] [place] [address]- 4297 Oct, [facility] [id number] [place] [address] 46559- 9714 Oct, [facility] [id number] [place] [address] 21298- 5112 Oct, [facility] [id number] [place] [address] 36062- 6353 Sep, [facility] [id number] [place] [address] 53005- 3536 Sep, Primary insomnia F51.01 [facility] [id number] [place] [address] 91964- 1323 Sep, Primary insomnia F51.01 [facility] [id number] [place] [address] 39400- 6913 Sep, [facility] [address] [address]- 5549 Aug, [facility] [id number] [address]- 8019 Aug, [facility] [address] [address]- 5668 Aug, Primary insomnia F51.01 ; Mood disorder F39 ; Nausea and vomiting, unspecified intactability, vomiting of unspecified type R11.2 and Diarrhea R19.7 [facility] [address] [address]- 3807 Aug, [facility] [id number] [place] [address] 14247- 3388 Aug, Folliculitis L73.9 [facility] [address] [address]- 9797 Aug, [facility] [id number] [place] [address] 08934- 1020 Aug, [facility] [address] [place] [address] 73719- 5977 Jul, Folliculitis L73.9 [facility] [id number] [place] [address] 75898- 4783 Jul, [facility] [id number] [place] [address] 51650- 7306 Jun, Folliculitis L73.9 [facility] [id number] [place] [address] 17447- 1218 Jun, [facility] [id number] [place] [address] 80846- 1235 May, Polyneuropathy G62.9 [facility] [address] [place] [address] 20329- 5634 May, Other specified diseases of anus and rectum K62.89 [facility] [address] [address]- 5095 May, [facility] [address] [place] [address] 91552- 7652 May, Primary insomnia F51.01 [facility] [address] [address]- 7276 May, [facility] [id number] [place] [address] 30776- 0619 May, [facility] [address] [address]- 9545 Apr, Other specified diseases of anus and rectum K62.89 ; Chronic fatigue R53.82 ; Urinary tract infection, site not specified N39.0 and Enterococcus as the cause of diseases classified elsewhere B95.2 [facility] [address] [address]- 2976 16 Apr, 2015 [facility] [id number] [place] [address] 65646- 1086 15 Apr, 2015 [facility] [id number] [address]- 3095 Apr, 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 [facility] [id number] [address]- 9899 05 Apr, 2015 [facility] [id number] [place] [address] 15205- 5761 26 Mar, 2015 [facility] [id number] [place] [address] 25552- 5496 23 Mar, 2015 [facility] [id number] [place] [address] 50967- 9454 17 Mar, 2015 [facility] [id number] [place] [address] 76012- 5304 14 Mar, 2015 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 [facility] [address] [address]- 1502 12 Mar, 2015 [facility] [address] [address]- 1554 11 Mar, 2015 [facility] [address] [address]- 254 11 Mar, 2015 [facility] [address] [address]- 2542 10 Mar, 2015 [facility] [id number] [place] [address] 73404- 2546 Feb, [facility] [address] [address]- 9656 Feb, [facility] [id number] [place] [address] 63109- 2546 Feb, [facility] [address] [facility] [id number] [address]- 3203 Jan, [facility] [address] [address] 2546 Jan, Nausea 787.02 and Neuropathy 355.9 [facility] [address] [facility] [id number] [place] [address] 66744- 4531 Jan, [facility] [address] [facility] [id number] [place] [address] 05834 2547 Jan, [facility] [address] [facility] [id number] [place] [address] 06488- 9039 Jan, [facility] [address] [id number] [id number] Jan, Dental examination V72.2 [facility] [id number] [place] [address] 85915- 3362 Jan, [facility] [id number] [address]- 5462 Dec, [facility] [address] [address]- 8684 Dec, [facility] [address] [address]- 0591 Dec, Neuropathy 355.9 [facility] [address] [address]- 4848 November, [facility] [address] [facility] [id number] [place] [address]- 1510 November, [facility] [address] [facility] [id number] [place] [address]- 7752 November, [facility] [address] [facility] [id number] [place] [address]- 3079 Oct, [facility] [address] [address]- 2221 Oct, [facility] [place] [facility] [address] [id number] [place] [address]- 3749 Sep, [facility] [place] [facility] [address] [id number] [place] [address]- 0223 Sep, [facility] [place] [facility] [address] [facility] [id number] [place] [address]- 8616 Sep, [facility] [place] [facility] [address] [facility] [id number] [place] [address]- 6180 Sep, [facility] [place] [facility] [address] [facility] [id number] [place] [address]- 1751 Sep, [facility] [place] [facility] [address] [facility] [id number] [place] [address] Sep, [facility] [place] [facility] [address] [facility] [id number] [place] [address] Sep, [facility] [place] [facility] [address] [facility] [id number] [address] Sep, [facility] [place] [facility] [address] [facility] [id number] [place] [address] Aug, 2014 [facility] [place] [facility] [address] [facility] [id number] [place] [address] Aug, 2014 [facility] [place] [facility] [address] [facility] [id number] [address] Aug, 2014 [facility] [place] [facility] [address] [facility] [id number] [place] [address] Aug, 2014 [facility] [place] [facility] [address] [facility] [id number] [place] [address] Aug, 2014 [facility] [place] [facility] [address] [facility] [id number] [place] [address] Aug, 2014 [facility] [place] [facility] [address] [facility] [id number] [address] Aug, 2014 [facility] [place] [facility] [address] [id number] [place] [address] Aug, [facility] [place] [facility] [address] [id number] [place] [address] Jul, [facility] [place] [facility] [address] [id number] [place] [address] Jul, [facility] [place] [facility] [address] [id number] [place] [address] Jun, [facility] [place] [facility] [address] [id number] [place] [address] Jun, [facility] [place] [facility] [address] [id number] [place] [address] Jun, [facility] [place] [facility] [address] [id number] [place] [address] Jun, [facility] [place] [facility] [address] [id number] [place] [address] Jun, [facility] [place] [facility] [address] [id number] [place] [address] Jun, [facility] [place] [facility] [address] [id number] [place] [address] Jun, [facility] [place] [facility] [address] [id number] [place] [address] Jun, [facility] [place] [facility] [address] [id number] [place] [address] Jun, [facility] [place] [facility] [address] [id number] [place] [address] Jun, [facility] [place] [facility] [address] [id number] [place] [address] Jun, [facility] [place] [facility] [address] [id number] [place] [address] May, [facility] [place] [facility] [address] [id number] [place] [address] May, [facility] [place] [facility] [address] [id number] [place] [address] May, [facility] [place] [facility] [address] [id number] [place] [address] May, [facility] [place] [facility] [address] [id number] [place] [address] May, [facility] [place] [facility] [address] [id number] [place] [address] May, [facility] [place] [facility] [address] [id number] [place] [address] May, [facility] [place] [facility] [address] [id number] [place] [address] May, [facility] [place] [facility] [address] [id number] [place] [address] May, [facility] [place] [facility] [address] [id number] [place] [address] Apr, [facility] [place] [facility] [address] [id number] [place] [address] Apr, [facility] [place] [facility] [address] [id number] [place] [address] Apr, [facility] [place] [facility] [address] [id number] [place] [address] Apr, [facility] [place] [facility] [address] [id number] [address] Apr, [facility] [place] [facility] [address] [id number] [place] [address] Mar, [facility] [place] [facility] [address] [id number] [place] [address] Mar, [facility] [place] [facility] [address] [id number] [place] [address] Feb, [facility] [place] [facility] [address] [id number] [place] [address] Feb, [facility] [place] [facility] [address] [id number] [place] [address] Feb, [facility] [place] [facility] [address] [id number] [place] [address] Feb, [facility] [place] [facility] [address] [id number] [place] [address] Feb, [facility] [place] [facility] [address] [id number] [place] [address] Feb, [facility] [place] [facility] [address] [id number] [place] [address] 116[address] Jan, [facility] [place] [facility] [address] [id number] [place] [address] Jan, [facility] [place] [facility] [address] [id number] [place] [address] Jan, [facility] [place] [facility] [address] [id number] [place] [address] Jan, [facility] [place] [facility] [address] [id number] [place] [address] 44[address] Jan, [facility] [place] [facility] [address] [id number] [place] [address] 40[address] Jan, [facility] [place] [facility] [address] [id number] [place] [address] 77[address] Jan, [facility] [place] [facility] [address] [id number] [place] [address] Jan, [facility] [place] [facility] [address] [id number] [place] [address] 8040 Jan, [facility] [place] [facility] [address] [id number] [place] [address] Jan, [facility] [place] [facility] [address] [id number] [place] [address]253 Jan, [facility] [place] [facility] [address] [id number] [place] [address]04 Dec, [facility] [place] [facility] [address] [id number] [place] [address] 1849 Dec, [facility] [place] [facility] [address] [id number] [place] [address] 0467 Dec, [facility] [place] [facility] [address] [id number] [place] [address] Dec, [facility] [place] [facility] [address] [id number] [place] [address] Dec, [facility] [place] [facility] [address] [id number] [place] [address] Dec, [facility] [place] [facility] [address] [id number] [place] [address] November, [facility] [place] [facility] [address] [id number] [place] [address] November, [facility] [place] [facility] [address] [id number] [place] [address] November, [facility] [place] [facility] [address] [id number] [place] [address] 47[address] November, [facility] [place] [facility] [address] [id number] [place] [address] 95[address] November, [facility] [place] [facility] [address] [id number] [place] [address] November, [facility] [place] [facility] [address] [id number] [place] [address] 2351 Oct, [facility] [place] [facility] [address] [id number] [place] [address] 4[address] Oct, [facility] [place] [facility] [address] [id number] [place] [address] 16 Oct, 2013 [facility] [place] [facility] [address] [id number] [place] [address] Oct, [facility] [address] [id number] [place] [address] Sep, [facility] [address] [id number] [place] [address] Sep, [facility] [address] [id number] [place] [address] 7277 Sep, [facility] [address] [id number] [place] [address] 8739 Sep, [facility] [address] [id number] [place] [address] 4229 Sep, [facility] [address] [id number] [place] [address]- 9460 Aug, [facility] [address] [id number] [place] [address]64 Aug, [facility] [address] [id number] [place] [address]- 7076 Aug, [facility] [address] [id number] [place] [address] 4703 Aug, [facility] [address] [id number] [place] [address] 6[address] Aug, [facility] [place] [address] [place] [id number] May, [facility] [address] [id number] [place] [address] 8723 May, [facility] [address] [id number] [place] [address] 6983 May, [facility] [address] [id number] [place] [address] 4205 May, [facility] [address] [id number] [place] [address] 3943 May, [facility] [address] [id number] [place] [address] 1314 Apr, [facility] [address] [id number] [place] [address] 5040 Apr, [facility] [place] [facility] [address] [id number] [place] [address] 6447 Apr, [facility] [address] [id number] [place] [address] 0044 Apr, [facility] [place] [facility] [address] [id number] [place] [address]- 0860 Apr, [facility] [address] [id number] [place] [address] 8405 Apr, [facility] [place] [facility] [address] [id number] [place] [address] 0265 Apr, [facility] [place] [facility] [address] [id number] [place] [address] 9548 Mar, [facility] [address] [id number] [place] [address]- 3476 Mar, [facility] [place] [facility] [address] [id number] [place] [address]- 2939 24 Mar, 2013 [facility] [address] [id number] [place] [address]- 4453 16 Mar, 2013 [facility] [place] [facility] [address] [id number] [place] [address]- 2544 12 Mar, 2013 [facility] [place] [facility] [address] [id number] [place] [address]- 2547 06 Mar, 2013 [facility] [place] [facility] [address] [id number] [place] [address] Feb, [facility] [place] [facility] [address] [id number] [place] [address]- 1550 Feb, [facility] [place] [facility] [address] [id number] [place] [address]- 9945 Feb, [facility] [place] [facility] [address] [id number] [place] [address]- 7679 Feb, [facility] [place] [facility] [address] [id number] [place] [address]- 0521 Feb, [facility] [place] [facility] [address] [id number] [place] [address]- 0410 Feb, [facility] [place] [facility] [address] [id number] [place] [address]- 3267 Jan, [facility] [place] [facility] [address] [id number] [place] [address]- 2491 Dec, [facility] [place] [facility] [address] [id number] [place] [address]- 8268 Dec, [facility] [place] [facility] [address] [id number] [place] [address]- 7525 Dec, [facility] [place] [facility] [address] [id number] [place] [address]- 0883 Dec, [facility] [place] [facility] [address] [id number] [place] [address]- 3934 Dec, [facility] [place] [facility] [address] [id number] [place] [address]- 4030 Dec, [facility] [place] [facility] [address] [id number] [place] [address]- 2390 Dec, [facility] [place] [facility] [address] [id number] [place] [address]- 4105 Dec, [facility] [place] [facility] [address] [id number] [place] [address]- 0751 Dec, [facility] [place] [facility] [address] [id number] [place] [address]- 9281 November, [facility] [place] [facility] [address] [id number] [place] [address]- [address]268 November, [facility] [place] [facility] [address] [id number] [place] [address]- 3516 03 Oct, 2012 [facility] [address] [id number] [address] Sep, [facility] [id number] [address] Sep, [facility] [id number] [address]- 9[address] 15 Sep, 2012 [facility] [id number] [address]- 7829 Sep, [facility] [id number] [address]- 0666 Aug, [facility] [id number] [address]- 6996 Aug, [facility] [id number] [address]- 9415 Jul, [facility] [id number] [address]- 3[address] Jul, [facility] [id number] [address]- 0823 Jul, [facility] [address] [id number] [address]- 7226 Sep, [facility] [address] [id number] [address]- 2676 17 Sep, 2011 [facility] [address] [id number] [address]- [address]146 10 Sep, 2011 IMMUNIZATIONS No Known Immunizations SOCIAL HISTORY Never Assessed REASON FOR VISIT Pain management (chronic), PT went to the dentist and had elevated BP-Oneyda LIRA PLAN OF CARE VITAL SIGNS Height 67 in 2017-06-19 Weight 198.9 lbs 2017-06-19 Temperature 97.7 degrees Fahrenheit 2017-06-19 Heart Rate 76 bpm 2017-06-19 Respiratory Rate 18 2017-06-19 BMI 31.15 kg/m2 2017-06-19 Blood pressure systolic 142 mmHg 2017-06-19 Blood pressure diastolic 82 mmHg 2017-06-19 MEDICATIONS Medication Instructions Dosage Frequency Start Date End Date Duration Status Lyrica 150 MG Orally 3 times a day 1 capsule 8h Feb, Active Hydrocodone Bitartrate Active Promethazine HCl 12.5 MG Orally every 6 hrs 1 tablet as needed 6h Active Acyclovir 5 % Externally Five times a day 1 application to affected area Dec, Active Gabapentin 600 MG Orally 3 times a day 2 tablet 8h 30 days Active Zoloft 100 mg Orally Once a day 1 tablet 24h 30 Active Oxycodone HCl 30 MG Orally 2 times a day 1 tablet as needed 12h Jun, Active Wheelchair 1 as directed Dec, Active Percocet 10-325 MG Orally every 4 hrs 1 tablet 4h Jun, Active RESULTS No Results PROCEDURES Procedure Date Ordered Result Body Site [facility] ESTABLISHED PATIENT Jun 19, 2017 INSTRUCTIONS MEDICATIONS ADMINISTERED No Known Medications [...]
--- OUTSIDE RECORDS SUMMARY | 2018-06-09 17:43 | XMS REPORT ---
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 795811615 Problem Primary insomnia F51.01 Active 368892945 Problem Chronic fatigue, unspecified R53.82 Active 918216933 Problem Polyneuropathy G62.9 Active 59794800 Problem Anxiety F41.9 Active 93611960 Problem Hypertension, benign I10 Active 01176649 Problem Abdominal pain, left lower quadrant R10.32 Active 747774731 Problem Neuropathy G62.9 Active 530376723 Problem Mood disorder F39 Active 39010448 ALLERGIES No Information SOCIAL HISTORY Never Assessed PLAN OF CARE VITAL SIGNS MEDICATIONS Medication Instructions Dosage Frequency Start Date End Date Duration Status Percocet 10-325 MG Orally every 4 hrs 1 tablet 4h November, 28 days Active RESULTS No Results [...] [facility] 09/21/16 Hospitalization History Large bowel obstruction, Dehydration-[facility] 01/01/17
--- OUTSIDE RECORDS SUMMARY | 2018-06-09 17:44 | XMS REPORT ---
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 Name Role Phone LINDA BENTLEY Unavailable PROBLEMS Type Condition ICD9-CM Code HPA19-QO Code Onset Dates Condition Status SNOMED Code Problem Abdominal pain, left lower quadrant R10.32 Active 591120545 Problem Mood disorder F39 Active 22593549 Problem Hypertension, benign I10 Active 98126936 Problem Chronic pain syndrome G89.4 Active 984744541 Problem Attention to urostomy Z43.6 Active 128462861 Problem Anxiety F41.9 Active 26032141 Problem Neuropathy G62.9 Active 725712626 Problem Malignant neoplasm of colon, unspecified part of colon C18.9 Active 687969688 Problem Polyneuropathy G62.9 Active 21019932 Problem Incontinence of feces, unspecified fecal incontinence type R15.9 Active 63297136 Problem Chronic fatigue, unspecified R53.82 Active 135252124 Problem Hydronephrosis with ureteral stricture, not elsewhere classified N13.1 Active 47466496 Problem Primary insomnia F51.01 Active 704092734 Problem 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 776857070 ALLERGIES No Information ENCOUNTERS Encounter Location Date Diagnosis [facility] [id number] [address] Jan, [facility] [id number] [address] 4590 Dec, Polyneuropathy G62.9 [facility] [id number] [address] 4865 Dec, Mood disorder F39 [facility] [id number] [address] 8085 November, Polyneuropathy G62.9 [facility] [address] [address] 2852 November, Medicare annual wellness visit, initial Z00.00 [facility] [id number] [place] [address] 84675- 1611 November, Mood disorder F39 [facility] [id number] [place] [address] 15655- 0956 Oct, Polyneuropathy G62.9 [facility] [id number] [place] [address] 32428- 4297 Oct, [facility] [id number] [place] [address] 08961- 0631 Oct, [facility] [id number] [place] [address] 35284- 0389 Oct, Mood disorder F39 ; Attention to urostomy Z43.6 ; Chronic pain syndrome G89.4 and Polyneuropathy G62.9 [facility] [id number] [place] [address] 19215- 2215 Sep, Polyneuropathy G62.9 [facility] [id number] [place] [address] 01364- 8026 Sep, [facility] [id number] [place] [address] 72868- 8521 Sep, Polyneuropathy G62.9 [facility] [id number] [place] [address] 55415- 2195 Aug, Polyneuropathy G62.9 [facility] [id number] [place] [address] 36224- 9636 Aug, Malignant neoplasm of colon, unspecified part of colon C18.9 and Polyneuropathy G62.9 [facility] [address] [address] 9055 Aug, Neuropathy G62.9 and Polyneuropathy G62.9 [facility] [id number] [place] [address] 02885- 1384 Jul, Encounter for drug screening Z02.83 [facility] [id number] [place] [address] 04039- 8955 Jul, Polyneuropathy G62.9 [facility] [id number] [place] [address] 76410- 8189 Jul, [facility] [id number] [place] [address] 37472- 6540 Jul, Neuropathy G62.9 and Anxiety F41.9 [facility] [id number] [place] [address] 54487- 4729 Jul, [facility] [id number] [place] [address] 51884- 6351 Jul, [facility] [id number] [place] [address] 95570- 2847 Jul, [facility] [id number] [place] [address] 30742- 0216 Jul, Polyneuropathy G62.9 [facility] [id number] [place] [address] 72202- 3495 Jul, [facility] [id number] [place] [address] 21091- 8121 Jun, [facility] [id number] [place] [address] 59948- 0425 Jun, [facility] [id number] [place] [address] 47783- 6329 Jun, [facility] [id number] [place] [address] Jun, Encounter for dental examination Z01.20 [facility] [address] [address]- 9418 Jun, Polyneuropathy G62.9 and Anxiety F41.9 [facility] [id number] [address]- 5754 Jun, [facility] [id number] [place] [address] May, Dental examination Z01.20 [facility] [id number] [place] [address] 70299- 1024 May, Polyneuropathy G62.9 [facility] [id number] [place] [address] 28606- 6134 Apr, Polyneuropathy G62.9 [facility] [id number] [place] [address] 73045- 1456 Apr, Polyneuropathy G62.9 [facility] [id number] [place] [address] 07473- 7769 Apr, Hypertension, benign I10 ; Polyneuropathy G62.9 and Anxiety F41.9 [facility] [id number] [place] [address] 58804- 1536 Apr, Primary insomnia F51.01 and Polyneuropathy G62.9 [facility] [id number] [place] [address] 22525- 3916 Apr, Primary insomnia F51.01 and Polyneuropathy G62.9 [facility] [id number] [place] [address] 91896- 8625 Mar, Primary insomnia F51.01 [facility] [id number] [place] [address] 10711- 1982 Mar, [facility] [id number] [place] [address] 92221- 8507 Mar, Polyneuropathy G62.9 [facility] [id number] [place] [address] 02635- 2826 Feb, Primary insomnia F51.01 [facility] [id number] [place] [address] 78685- 1169 Feb, [facility] [address] [place] [address] Feb, [facility] [address] [place] [address]- 5944 Feb, Polyneuropathy G62.9 [facility] [address] [place] [address]- 2722 Feb, Primary insomnia F51.01 [facility] [id number] [place] [address]- 3881 Jan, [facility] [id number] [place] [address]- 6978 Jan, [facility] [address] [place] [address]- 3163 Dec, [facility] [id number] [place] [address]- 1012 Dec, Primary insomnia F51.01 [facility] [address] [place] [address]- 1430 Dec, Primary insomnia F51.01 [facility] [address] [place] [address]- 3739 Dec, [facility] [address] [place] [address]- 8823 Dec, [facility] [address] [place] [address]- 6099 Dec, [facility] [address] [place] [address]- 5209 Dec, [facility] [address] [place] [address]- 1481 November, Primary insomnia F51.01 and Polyneuropathy G62.9 [facility] [address] [place] [address]- 0154 November, [facility] [id number] [place] [address] 31965- 8747 November, Abdominal pain, left lower quadrant R10.32 [facility] [id number] [place] [address] 84715- 1092 November, [facility] [id number] [place] [address] 62212- 0591 Oct, [facility] [id number] [place] [address] 72465- 8571 Oct, Abdominal pain, left lower quadrant R10.32 ; 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 and Neuropathy G62.9 [facility] [address] 29017- 9881 Oct, [facility] [id number] [place] [address] 41019- 4029 Sep, [facility] [address] [id number] Sep, [facility] [id number] [place] [address] 69440- 0856 Sep, [facility] [id number] [place] [address] 91478- 7216 Aug, [facility] [id number] [place] [address] 02824- 4381 Aug, [facility] [id number] [place] [address] 57542- 1555 Aug, Abdominal pain, left lower quadrant R10.32 ; Neuropathy G62.9 and Anxiety F41.9 [facility] [address] [place] [address] Jul, [facility] [id number] [place] [address] 59889123- 4423 Jul, [facility] [id number] [place] [address] 40506 -9538 Jul, [facility] [address] [place] [address]- 5305 Jul, [facility] [address] [address]- 5866 Jul, [facility] [address] [address]- 6523 Jun, [facility] [id number] [place] [address] 961058- 0346 May, [facility] [address] [address]- 4739 May, [facility] [id number] [place] [address] 21483- 0498 Apr, [facility] [address] [address]- 8428 Apr, Muscle spasms of both lower extremities M62.838 and Cellulitis, unspecified cellulitis site L03.90 [facility] [address] [address]- 6642 Apr, [facility] [id number] [place] [address] 82956- 9090 23 Mar, 2016 Generalized abdominal pain R10.84 [facility] [address] [address]- 0418 20 Mar, 2016 [facility] [address] [address]- 2678 14 Mar, 2016 [facility] [address] [address]- 254 14 Mar, 2015 [facility] [address] [address]- 6144 13 Mar, 2016 [facility] [address] [address]- 5587 12 Mar, 2015 [facility] [address] [address]- 5857 Mar, [facility] [address] [facility] [id number] [place] [address]- 2495 Mar, [facility] [address] [facility] [id number] [place] [address]- 1548 Feb, Other specified diseases of anus and rectum K62.89 [facility] [address] [facility] [id number] [place] [address]- 1456 Feb, [facility] [address] [facility] [id number] [place] [address] 60683 2544 Feb, Dizziness R42 [facility] [address] [facility] [id number] [place] [address] 82326- 4108 Feb, [facility] [id number] [place] [address] 69571- 0219 Jan, Polyneuropathy G62.9 [facility] [id number] [place] [address] 49545- 9883 Jan, Other specified diseases of anus and rectum K62.89 [facility] [address] [facility] [id number] [place] [address]- 7224 Jan, [facility] [id number] [address] -3024 Jan, [facility] [address] [address]- 0207 Jan, [facility] [address] [address]- 4330 Jan, Dizziness R42 [facility] [address] [facility] [id number] [place] [address]- 5363 Dec, [facility] [address] [facility] [id number] [place] [address]- 0775 Dec, [facility] [id number] [address]- 2906 Dec, [facility] [id number] [address]- 4110 Dec, Dizziness R42 [facility] [id number] [place] [address] 39137- 4591 November, [facility] [id number] [address]- 1382 Oct, [facility] [id number] [place] [address] 48376- 5817 Oct, [facility] [id number] [place] [address] 32897- 3067 Oct, [facility] [id number] [place] [address] 12668- 0300 Oct, [facility] [id number] [place] [address] 02772- 8662 Sep, [facility] [id number] [place] [address] 90466- 5236 Sep, Primary insomnia F51.01 [facility] [id number] [place] [address] 10311- 9606 Sep, Primary insomnia F51.01 [facility] [id number] [place] [address] 75598- 5196 Sep, [facility] [address] [address]- 2246 Aug, [facility] [address] [address]- 6194 Aug, [facility] [address] [address]- 2810 Aug, Primary insomnia F51.01 ; Mood disorder F39 ; Nausea and vomiting, unspecified intactability, vomiting of unspecified type R11.2 and Diarrhea R19.7 [facility] [address] [address]- 5597 Aug, [facility] [id number] [address]- 3002 Aug, Folliculitis L73.9 [facility] [id number] [place] [address] 66536- 0107 Aug, [facility] [id number] [place] [address] 02868- 2379 Aug, [facility] [id number] [place] [address] 32583- 8096 Jul, Folliculitis L73.9 [facility] [id number] [place] [address] 34956- 8440 Jul, [facility] [id number] [place] [address] 52331- 3454 Jun, Folliculitis L73.9 [facility] [id number] [place] [address] 97429- 0328 Jun, [facility] [id number] [place] [address] 06825- 7581 May, Polyneuropathy G62.9 [facility] [id number] [place] [address] 85890- 0417 May, Other specified diseases of anus and rectum K62.89 [facility] [id number] [place] [address] 13982- 2294 May, [facility] [id number] [place] [address] 71826- 5527 May, Primary insomnia F51.01 [facility] [id number] [place] [address] 34092- 6524 May, [facility] [id number] [place] [address] 12575- 4573 May, [facility] [id number] [place] [address] 32628- 0499 Apr, Other specified diseases of anus and rectum K62.89 ; Chronic fatigue R53.82 ; Urinary tract infection, site not specified N39.0 and Enterococcus as the cause of diseases classified elsewhere B95.2 [facility] [id number] [place] [address] 72590- 2026 16 Apr, 2015 [facility] [id number] [place] [address] 34681 2546 15 Apr, 2015 [facility] [id number] [place] [address] 78846 2546 14 Apr, 2015 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 [facility] [id number] [place] [address] 94150 2546 05 Apr, 2015 [facility] [id number] [place] [address] 38665- 9566 26 Mar, 2015 [facility] [id number] [place] [address] 71596- 0506 23 Mar, 2015 [facility] [id number] [place] [address] 76793 2546 17 Mar, 2015 [facility] [id number] [place] [address] 59871 254 14 Mar, 2015 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 [facility] [address] [address] 2546 12 Mar, 2015 [facility] [address] [address] 2546 11 Mar, 2015 [facility] [address] [address] 2546 11 Mar, 2015 [facility] [id number] [place] [address] 62611 2546 10 Mar, 2015 [facility] [id number] [place] [address] 53984 2546 Feb, [facility] [address] [address]- 5856 Feb, [facility] [address] [id number] [place] [address]- 3728 Feb, [facility] [address] [facility] [id number] [place] [address]- 1574 Jan, [facility] [address] [facility] [id number] [place] [address] 2546 Jan, Nausea 787.02 and Neuropathy 355.9 [facility] [address] [facility] [id number] [place] [address] 2543 Jan, [facility] [address] [facility] [id number] [place] [address]- 2458 Jan, [facility] [address] [facility] [id number] [place] [address]- 1848 Jan, [facility] [address] [id number] [place] [id number] Jan, Dental examination V72.2 [facility] [id number] [address]- 4140 Jan, [facility] [address] [address]- 0671 Dec, [facility] [address] [address]- 4717 Dec, [facility] [address] 5266 Dec, Neuropathy 355.9 [facility] [address] [facility] [id number] [place] [address]- 8288 November, [facility] [address] [facility] [id number] [place] [address]- 9712 November, [facility] [address] [facility] [id number] [place] [address]- 2552 November, [facility] [address] [facility] [id number] [place] 0383 Oct, [facility] [place] [facility] [address] [id number] [place] [address]- 7840 Oct, [facility] [place] [facility] [address] [id number] [place] [address] Sep, [facility] [place] [facility] [address] [id number] [place] [address] Sep, [facility] [place] [facility] [address] [id number] [place] [address] Sep, [facility] [place] [facility] [address] [id number] [place] [address] Sep, [facility] [place] [facility] [address] [id number] [place] [address] Sep, [facility] [place] [facility] [address] [facility] [id number] [place] [address] Sep, [facility] [place] [facility] [address] [id number] [place] [address] Sep, [facility] [place] [facility] [address] [facility] [id number] [place] [address] Sep, [facility] [place] [facility] [address] [facility] [id number] [place] [address] Aug, [facility] [place] [facility] [address] [facility] [id number] [place] [address] Aug, [facility] [place] [facility] [address] [facility] [id number] [place] [address] Aug, 2014 [facility] [place] [facility] [address] [facility] [id number] [place] [address] Aug, [facility] [place] [facility] [address] [id number] [place] [address] Aug, [facility] [place] [facility] [address] [facility] [id number] [place] [address] Aug, 2014 [facility] [place] [facility] [address] [facility] [id number] [place] [address] Aug, [facility] [place] [facility] [address] [id number] [place] [address] Aug, [facility] [place] [facility] [address] [id number] [place] [address] Jul, [facility] [place] [facility] [address] [id number] [place] [address] Jul, [facility] [place] [facility] [address] [id number] [place] [address] Jun, [facility] [place] [facility] [address] [id number] [place] [address] Jun, [facility] [place] [facility] [address] [id number] [place] [address] Jun, [facility] [place] [facility] [address] [id number] [place] [address] Jun, [facility] [place] [facility] [address] [id number] [place] [address] Jun, [facility] [place] [facility] [address] [id number] [place] [address] Jun, [facility] [place] [facility] [address] [id number] [place] [address] Jun, [facility] [place] [facility] [address] [id number] [place] [address] Jun, [facility] [place] [facility] [address] [id number] [place] [address] Jun, [facility] [place] [facility] [address] [id number] [place] [address] Jun, [facility] [place] [facility] [address] [id number] [place] [address] Jun, [facility] [place] [facility] [address] [id number] [place] [address] May, [facility] [place] [facility] [address] [id number] [place] [address] May, [facility] [place] [facility] [address] [id number] [place] [address] May, [facility] [place] [facility] [address] [id number] [place] [address] May, [facility] [place] [facility] [address] [id number] [place] [address] May, [facility] [place] [facility] [address] [id number] [place] [address] May, [facility] [place] [facility] [address] [id number] [place] [address]- [address] May, [facility] [place] [facility] [address] [id number] [place] [address] May, [facility] [place] [facility] [address] [id number] [place] [address] 488[address] May, [facility] [place] [facility] [address] [id number] [place] [address]- [address] Apr, [facility] [place] [facility] [address] [id number] [place] [address] Apr, [facility] [place] [facility] [address] [id number] [place] [address]- 64[address] Apr, [facility] [place] [facility] [address] [id number] [place] [address]- 75[address] Apr, [facility] [place] [facility] [address] [id number] [place] [address] Apr, [facility] [place] [facility] [address] [id number] [place] [address]- [address] Mar, [facility] [place] [facility] [address] [id number] [place] [address] 94[address] Mar, [facility] [place] [facility] [address] [id number] [place] [address]- 54[address] Feb, [facility] [place] [facility] [address] [id number] [place] [address]- [address] Feb, [facility] [place] [facility] [address] [id number] [place] [address]- 43[address] Feb, [facility] [place] [facility] [address] [id number] [place] [address] Feb, [facility] [place] [facility] [address] [id number] [place] [address]- 6883 Feb, [facility] [place] [facility] [address] [id number] [place] [address]- [address] Feb, [facility] [place] [facility] [address] [id number] [place] [address]- 8069 Jan, [facility] [place] [facility] [address] [id number] [place] [address]- 88[address] Jan, [facility] [place] [facility] [address] [id number] [place] [address]- 386[address] Jan, [facility] [place] [facility] [address] [id number] [place] [address]- 9299 Jan, [facility] [place] [facility] [address] [id number] [place] [address]- 4420 Jan, [facility] [place] [facility] [address] [id number] [place] [address]- 5[address] Jan, [facility] [place] [facility] [address] [id number] [place] [address]- 7139 Jan, [facility] [place] [facility] [address] [id number] [place] [address]- 1256 Jan, [facility] [place] [facility] [address] [id number] [place] [address]- 7291 Jan, [facility] [place] [facility] [address] [id number] [place] [address]- 73[address] Jan, [facility] [place] [facility] [address] [id number] [place] [address]- 8[address] Jan, [facility] [place] [facility] [address] [id number] [place] [address]- 2710 Dec, [facility] [place] [facility] [address] [id number] [place] [address]- 0188 Dec, [facility] [place] [facility] [address] [id number] [place] [address]- [address]109 Dec, [facility] [place] [facility] [address] [id number] [place] [address]- 3597 Dec, [facility] [place] [facility] [address] [id number] [place] [address]- 4272 Dec, [facility] [place] [facility] [address] [id number] [place] [address]- 7679 Dec, [facility] [place] [facility] [address] [id number] [place] [address]- 1335 November, [facility] [place] [facility] [address] [id number] [place] [address]- 2007 November, [facility] [place] [facility] [address] [id number] [place] [address]- 8450 November, [facility] [place] [facility] [address] [id number] [place] [address]- 2288 November, [facility] [place] [facility] [address] [id number] [place] [address]- 7536 November, [facility] [place] [facility] [address] [id number] [place] [address]- 5344 November, [facility] [place] [facility] [address] [id number] [place] [address]- 7596 Oct, [facility] [place] [facility] [address] [id number] [place] [address]- 8217 Oct, [facility] [place] [facility] [address] [id number] [place] [address]- 8970 16 Oct, 2013 [facility] [place] [facility] [address] [id number] [place] [address]- 7166 Oct, [facility] [address] [id number] [place] [address]- 7206 Sep, [facility] [address] [id number] [place] [address]- 2546 Sep, [facility] [address] [id number] [place] [address]- 5090 Sep, [facility] [address] [id number] [place] [address] 2549 Sep, [facility] [address] [id number] [place] [address]- 9796 Sep, [facility] [address] [id number] [place] [address]- 2215 Aug, [facility] [address] [id number] [place] [address]- 0268 Aug, [facility] [address] [id number] [place] [address]- 6336 Aug, [facility] [address] [id number] [place] [address]- 3468 Aug, [facility] [address] [id number] [place] [address]- 9482 Aug, [facility] [address] [place] [id number] May, [facility] [address] [id number] [place] [address] 7918 May, [facility] [address] [id number] [place] [address]- 2546 May, [facility] [address] [id number] [place] [address]- 2546 May, [facility] [address] [id number] [place] [address] 2818 May, [facility] [place] [facility] [address] [id number] [place] [address]- 0897 Apr, [facility] [place] [facility] [address] [id number] [place] [address]- 9276 Apr, [facility] [place] [facility] [address] [id number] [place] [address]- 4081 Apr, [facility] [place] [facility] [address] [id number] [place] [address]- 8013 Apr, [facility] [place] [facility] [address] [id number] [place] [address]- 9358 Apr, [facility] [place] [facility] [address] [id number] [place] [address]- 1027 Apr, [facility] [place] [facility] [address] [id number] [place] [address]- 0065 Apr, [facility] [place] [facility] [address] [id number] [place] [address] Mar, [facility] [place] [facility] [address] [id number] [place] [address]- 3933 25 Mar, 2013 [facility] [place] [facility] [address] [id number] [place] [address]- 7429 24 Mar, 2013 [facility] [place] [facility] [address] [id number] [place] [address] 16 Mar, 2013 [facility] [place] [facility] [address] [id number] [place] [address]- 3888 12 Mar, 2013 [facility] [place] [facility] [address] [id number] [place] [address]- 6943 06 Mar, 2013 [facility] [place] [facility] [address] [id number] [place] [address]- 3988 Feb, [facility] [place] [facility] [address] [id number] [place] [address] Feb, [facility] [place] [facility] [address] [id number] [place] [address]- 1221 Feb, [facility] [place] [facility] [address] [id number] [place] [address]- 3006 Feb, [facility] [place] [facility] [address] [id number] [place] [address]- 3832 Feb, [facility] [place] [facility] [address] [id number] [place] [address]- 4206 Feb, [facility] [place] [facility] [address] [id number] [place] [address]- 7140 Jan, [facility] [place] [facility] [address] [id number] [place] [address]- 6160 Dec, [facility] [place] [facility] [address] [id number] [place] [address]- 6973 Dec, [facility] [place] [facility] [address] [id number] [place] [address]- 4692 Dec, [facility] [place] [facility] [address] [id number] [place] [address]- 3077 Dec, [facility] [place] [facility] [address] [id number] [place] [address]- 1097 Dec, [facility] [place] [facility] [address] [id number] [place] [address]- 7687 Dec, [facility] [place] [facility] [address] [id number] [place] [address]- 1990 Dec, [facility] [place] [facility] [address] [id number] [place] [address]- 8741 Dec, [facility] [place] [facility] [address] [id number] [place] [address]- 5430 Dec, [facility] [place] [facility] [address] [id number] [place] [address]- 5338 November, [facility] [place] [facility] [address] [id number] [place] [address]- 378[address] November, [facility] [id number] [address] 46[address] Oct, [facility] [id number] [address] Sep, [facility] [id number] [address]- 5486 Sep, [facility] [id number] [address]- 2897 Sep, [facility] [id number] [address]- 1894 Sep, [facility] [id number] [address]- 0856 Aug, [facility] [id number] [address]- 6736 Aug, [facility] [id number] [address]- 4952 Jul, [facility] [id number] [address]- 6693 Jul, [facility] [id number] [address] Jul, [facility] [id number] [address]- 0195 Sep, [facility] [id number] [address]- 0128 Sep, [facility] [id number] [id number]86 Sep, IMMUNIZATIONS No Known Immunizations SOCIAL HISTORY Never Assessed REASON FOR VISIT Urostomy Supplies PLAN OF CARE VITAL SIGNS MEDICATIONS Unknown [...]
--- OUTSIDE RECORDS SUMMARY | 2018-06-09 17:44 | XMS REPORT ---
Author Author LINDA BENTLEY Organization [facility] Address [address] [place] [address] Care Team Providers Care White Sourer Name Role Phone LINDA BENTLEY Unavailable PROBLEMS Type Condition ICD9-CM Code COK32-AZ Code Onset Dates Condition Status SNOMED Code Problem Abdominal pain, left lower quadrant R10.32 Active 839173793 Problem Mood disorder F39 Active 93992985 Problem Hypertension, benign I10 Active 35860916 Problem Chronic pain syndrome G89.4 Active 917656107 Problem Attention to urostomy Z43.6 Active 158806819 Problem Anxiety F41.9 Active 04379249 Problem Neuropathy G62.9 Active 692345617 Problem Malignant neoplasm of colon, unspecified part of colon C18.9 Active 927475019 Problem Polyneuropathy G62.9 Active 32995034 Problem Incontinence of feces, unspecified fecal incontinence type R15.9 Active 20189906 Problem Chronic fatigue, unspecified R53.82 Active 567228088 Problem Hydronephrosis with ureteral stricture, not elsewhere classified N13.1 Active 52043468 Problem Primary insomnia F51.01 Active 646849355 Problem 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 310923570 ALLERGIES No Information ENCOUNTERS Encounter Location Date Diagnosis [facility] [id number], [place] [address] November, Medicare annual wellness visit, initial Z00.00 [facility] [id number], [place] [address] November, [facility] [id number], [place] [address] 9[address] Oct, Polyneuropathy G62.9 [facility] [id number], [place] [address] Oct, [place] [id number] [place] [address] 37368- 3376 Oct, [facility] [id number] [place] [address] 58840- 3943 Oct, Mood disorder F39 ; Attention to urostomy Z43.6 ; Chronic pain syndrome G89.4 and Polyneuropathy G62.9 [facility] [id number] [place] [address] 92390- 8146 Sep, Polyneuropathy G62.9 [facility] [id number] [place] [address] 23900- 2427 Sep, [facility] [address] [address]- [address] Sep, Polyneuropathy G62.9 [facility] [id number] [place] [address] 96453- 3961 Aug, Polyneuropathy G62.9 [facility] [id number] [place] [address] 68730- 5313 Aug, Malignant neoplasm of colon, unspecified part of colon C18.9 and Polyneuropathy G62.9 [facility] [id number] [place] [address] 46691- 5081 Aug, Neuropathy G62.9 and Polyneuropathy G62.9 [facility] [id number] [place] [address] 33066- 3059 Jul, Encounter for drug screening Z02.83 [facility] [id number] [place] [address] 13053- 6991 Jul, Polyneuropathy G62.9 [facility] [id number] [place] [address] 78437- 3264 Jul, [facility] [id number] [place] [address] 35332- 0960 Jul, Neuropathy G62.9 and Anxiety F41.9 [facility] [address] [place] [address] Jul, [facility] [id number] [place] [address] 11384- 2731 Jul, [facility] [address], [place] [address] 3276 Jul, [facility] [id number] [place] [address] 46258- 6939 Jul, Polyneuropathy G62.9 [facility] [id number] [place] [address] 63786- 8010 Jul, [facility] [id number] [place] [address] 93402- 5000 Jun, [facility] [id number] [place] [address] 29587- 8939 Jun, [facility] [id number] [place] [address] 22671- 3643 Jun, [facility] [id number] [place] [address] Jun, Encounter for dental examination Z01.20 [facility] [id number] [place] [address] 29549- 7217 Jun, Polyneuropathy G62.9 and Anxiety F41.9 [facility] [id number] [place] [address] 33149- 7152 Jun, [facility] [id number] [address] May, Dental examination Z01.20 [facility] [id number] [place] [address] 86935- 3135 May, Polyneuropathy G62.9 [facility] [id number] [place] [address] 77242- 5646 Apr, Polyneuropathy G62.9 [facility] [id number] [place] [address] 78445- 6439 Apr, Polyneuropathy G62.9 [facility] [id number] [place] [address] 08034- 0053 Apr, Hypertension, benign I10 ; Polyneuropathy G62.9 and Anxiety F41.9 [facility] [id number] [place] [address] 53155- 3333 Apr, Primary insomnia F51.01 and Polyneuropathy G62.9 [facility] [id number] [place] [address] 57526- 0119 Apr, Primary insomnia F51.01 and Polyneuropathy G62.9 [facility] [id number] [place] [address] 43709- 7157 Mar, Primary insomnia F51.01 [facility] [id number] [place] [address] 15210- 0189 Mar, [facility] [id number] [place] [address] 69558- 2192 Mar, Polyneuropathy G62.9 [facility] [id number] [place] [address] 65446- 9243 Feb, Primary insomnia F51.01 [facility] [id number] [place] [address] 43737- 9916 Feb, [facility] [id number] [place] [address] 71409- 7227 Feb, [facility] [id number] [place] [address] 70206- 6018 Feb, Polyneuropathy G62.9 [facility] [id number] [place] [address] 96694- 5478 Feb, Primary insomnia F51.01 [facility] [id number] [place] [address] 29076- 0422 Jan, [facility] [address] [address] Jan, [facility] [address], [place] [address] 4214 Dec, [facility] [address], [place] [address] 4566 Dec, Primary insomnia F51.01 [facility] [address], [place] [address] 6998 Dec, Primary insomnia F51.01 [facility] [address], [place] [address]- 2357 Dec, [facility] [address], [place] [address]- 2386 Dec, [facility] [address], [place] [address]- 9477 Dec, [facility] [address], [place] [address]- 3304 Dec, [facility] [address], [place] [address] 9406 November, Primary insomnia F51.01 and Polyneuropathy G62.9 [facility] [address], [place] [address]- 7326 November, [facility] [address], [place] [address]- 2565 November, Abdominal pain, left lower quadrant R10.32 [facility] [address], [place] [address]- 0857 November, [facility] [address], [place] [address]- 2890 Oct, [facility] [id number], [place] [address] 2371 Oct, Abdominal pain, left lower quadrant R10.32 ; 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 and Neuropathy G62.9 [facility] [address], [place] [address]- 9030 Oct, [facility] [id number] [place] [address] 50727- 2682 Sep, [facility] [place] [facility] [id number] [place] [address] [id number] Sep, [facility] [id number] [place] [address] 97348- 4857 Sep, [facility] [id number] [place] [address] 88922- 1394 Aug, [facility] [id number] [place] [address] 27241- 8823 Aug, [facility] [id number] [place] [address] 08506- 6899 Aug, Abdominal pain, left lower quadrant R10.32 ; Neuropathy G62.9 and Anxiety F41.9 [facility] [address] [facility] [place] [address] Jul, [facility] [id number] [place] [address] 99266- 8606 Jul, [facility] [address], [place] [address]5695 Jul, [facility] [id number] [place] [address] 14630- 0637 Jul, [facility] [address], [place] [address]- 8740 Jul, [facility] [id number] [place] [address] 16219- 4602 Jun, [facility] [id number] [place] [address] 22627- 1817 May, [facility] [id number] [place] [address] 18021- 3973 May, [facility] [address], [place] [address]- 5272 Apr, [facility] [id number] [place] [address] 04856- 6903 Apr, Muscle spasms of both lower extremities M62.838 and Cellulitis, unspecified cellulitis site L03.90 [facility] [id number] [place] [address] 87774- 9396 Apr, [facility] [id number] [place] [address] 43398- 0609 23 Mar, 2016 Generalized abdominal pain R10.84 [facility] [id number] [place] [address] 28853- 8468 20 Mar, 2016 [facility] [id number] [place] [address] 23440- 2154 14 Mar, 2016 [facility] [id number] [place] [address] 66516- 2240 14 Mar, 2016 [facility] [id number] [place] [address] 44005- 2310 13 Mar, 2016 [facility] [id number] [place] [address] 21085- 5562 12 Mar, 2016 [facility] [id number] [place] [address] 86721- 3138 09 Mar, 2016 [facility] [id number] [place] [address] 97774- 2547 06 Mar, 2016 [facility] [id number] [place] [address] 47181- 7510 17 Feb, 2016 Other specified diseases of anus and rectum K62.89 [facility] [id number] [place] [address] 60852- 3808 15 Feb, 2016 [facility] [address], [place] [address]- 2151 09 Feb, 2016 Dizziness R42 [facility] [id number] [place] [address]- 5400 Feb, [facility] [address] [place] [address]- 6801 Jan, Polyneuropathy G62.9 [facility] [address] [facility] [id number] [place] [address]- 4875 Jan, Other specified diseases of anus and rectum K62.89 [facility] [address] [facility] [id number] [address]- 4552 Jan, [facility] [address] [facility] [id number] [place] [address], [place] [address]32 Jan, [facility] [id number] [place] [address], [place] [address]- 1047 Jan, [facility] [id number] [place] [address], [place] [address]- 2917 Jan, Dizziness R42 [facility] [id number] [place] [address]- 6482 Dec, [facility] [id number] [place] [address]- 9826 Dec, [facility] [address] [place] [address]- 6767 Dec, [facility] [address] [place] [address]- 1461 Dec, Dizziness R42 [facility] [address] [facility] [id number], [place] [address]- 6461 November, [facility] [address] [place] [address]- 7720 Oct, [facility] [address] [place] [address]- 4569 Oct, [facility] [address], [place] [address]- 4676 Oct, [facility] [address], [place] [address]- 1496 Oct, [facility] [id number] [place] [address] 65517- 1653 30 Sep, 2015 [facility] [id number] [place] [address] 67670- 9727 14 Sep, 2015 Primary insomnia F51.01 [facility] [id number] [place] [address] 98182- 2821 Sep, Primary insomnia F51.01 [facility] [id number] [place] [address] 66438- 7358 Sep, [facility] [id number] [place] [address] 95330- 5461 Aug, [facility] [id number] [place] [address] 31486- 3711 Aug, [facility] [id number] [place] [address] 08427- 7090 Aug, Primary insomnia F51.01 ; Mood disorder F39 ; Nausea and vomiting, unspecified intactability, vomiting of unspecified type R11.2 and Diarrhea R19.7 [facility] [id number] [place] [address] 11006- 9740 Aug, [facility] [id number] [place] [address] 16377- 0756 Aug, Folliculitis L73.9 [facility] [address] [place] [address] 00443- 1242 Aug, [facility] [id number] [place] [address] 20763- 4746 Aug, [facility] [address] [place] [address] 77315- 4462 Jul, Folliculitis L73.9 [facility] [id number] [place] [address] 29907- 4261 Jul, [facility] [address] [place] [address] 19838- 7686 Jun, Folliculitis L73.9 [facility] [address] [place] [address] 36553- 1223 Jun, [facility] [id number] [place] [address] 21852- 8612 May, Polyneuropathy G62.9 [facility] [id number] [place] [address] 96746- 9996 May, Other specified diseases of anus and rectum K62.89 [facility] [id number] [place] [address] 05152- 9966 May, [facility] [id number] [place] [address] 57584- 1836 May, Primary insomnia F51.01 [facility] [id number] [place] [address] 82162- 4715 May, [facility] [id number] [place] [address] 76420- 3393 May, [facility] [id number] [place] [address] 08401- 2373 Apr, Other specified diseases of anus and rectum K62.89 ; Chronic fatigue R53.82 ; Urinary tract infection, site not specified N39.0 and Enterococcus as the cause of diseases classified elsewhere B95.2 [facility] [address] [place] [address] 28676- 6488 Apr, [facility] [id number] [place] [address] 12652- 8068 Apr, [facility] [id number] [place] [address] 97915- 1369 14 Apr, 2015 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 [facility] [id number] [place] [address] [place] [address]- 2225 05 Apr, 2015 [facility] [id number] [place] [address] 67472- 4011 26 Mar, 2015 [facility] [id number] [place] [address] 51447- 8274 23 Mar, 2014 [facility] [id number] [place] [address] 03821- 5096 17 Mar, 2014 [facility] [id number] [place] [address] 38629- 0952 14 Mar, 2015 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 [facility] [id number] [place] [address] 15403- 8730 12 Mar, 2015 [facility] [id number] [place] [address] 04188- 9384 11 Mar, 2015 [facility] [id number] [place] [address] 45272- 1314 11 Mar, 2015 [facility] [id number] [place] [address] 55262- 5504 10 Mar, 2015 [facility] [id number] [place] [address] 93317- 3785 Feb, [facility] [address], [place] [address]- 3137 Feb, [facility] [id number] [place] [address] 86072- 8496 Feb, [facility] [id number] [place] [address] 38130 2547 30 Jan, 2015 [facility] [id number] [place] [address] 57110- 6920 Jan, Nausea 787.02 and Neuropathy 355.9 [facility] [address], [place] [address]- 2686 Jan, [facility] [id number] [place] [address] 93228- 8095 Jan, [facility] [address] [id number] [place] [address]- 3934 Jan, [facility] [address] [id number] [place] [id number] Jan, Dental examination V72.2 [facility] [address] [id number] [place] [address]- 8312 Jan, [facility] [place] [facility] [address] [id number] [place] [address] 2549 Dec, [facility] [address] [id number] [place] [address]- 2432 Dec, [facility] [address] [id number] [place] [address]- 7790 Dec, Neuropathy 355.9 [facility] [address] [id number] [place] [address]- 3021 November, [facility] [address] [id number] [place] [address]- 8621 November, [facility] [address] [id number] [place] 5036 November, [facility] [id number] [address]- 7088 Oct, [facility] [place] [facility] [address] [id number] [place] [address]- 6589 Oct, [facility] [address] [id number] [place] [id number] Sep, [facility] [place] [facility] [address] [id number] [place] [address] Sep, [facility] [place] [facility] [address] [facility] [id number] [place] [address] Sep, [facility] [place] [facility] [address] [facility] [id number] [place] [address] Sep, [facility] [place] [facility] [address] [id number] [place] [address] Sep, [facility] [place] [facility] [address] [id number] [place] [address] Sep, [facility] [place] [facility] [address] [id number] [place] [address] Sep, [facility] [place] [facility] [address] [id number] [place] [address] Sep, [facility] [place] [facility] [address] [id number] [place] [address] Aug, [facility] [place] [facility] [address] [id number] [place] [address] Aug, 2014 [facility] [place] [facility] [address] [id number] [place] [address] Aug, [facility] [place] [facility] [address] [id number] [place] [address] Aug, [facility] [place] [facility] [address] [id number] [place] [address] Aug, [facility] [place] [facility] [address] [id number] [place] [address] Aug, [facility] [place] [facility] [address] [id number] [place] [address] Aug, [facility] [place] [facility] [address] [id number] [place] [address]- [address] Aug, [facility] [place] [facility] [address] [id number] [place] [address] Jul, [facility] [place] [facility] [address] [id number] [id number] [address] Jul, [facility] [place] [facility] [address] [id number] [place] [address]- [address] Jun, [facility] [place] [facility] [address] [id number] [place] [address]- [address] Jun, [facility] [place] [facility] [address] [id number] [id number] [address] Jun, [facility] [place] [facility] [address] [id number] [id number] [address] Jun, [facility] [place] [facility] [address] [id number] [place] [address]- [address] Jun, [facility] [place] [facility] [address] [id number] [place] [address]- [address] Jun, [facility] [place] [facility] [address] [id number] [place] [address]- [address] Jun, [facility] [place] [facility] [address] [id number] [id number] [address] Jun, [facility] [place] [facility] [address] [id number] [place] [address] Jun, [facility] [place] [facility] [address] [id number] [place] [address]- [address] Jun, [facility] [place] [facility] [address] [id number] [place] [address]- [address] Jun, [facility] [place] [facility] [address] [id number] [place] [address]- [address] May, [facility] [place] [facility] [address] [id number] [place] [address]- [address] May, [facility] [place] [facility] [address] [id number] [place] [address] May, [facility] [place] [facility] [address] [id number] [place] [address]- [address] May, [facility] [place] [facility] [address] [id number] [place] [address]- [address] May, [facility] [place] [facility] [address] [id number] [place] [address] May, [facility] [place] [facility] [address] [id number] [place] [address]- [address] May, [facility] [place] [facility] [address] [id number] [place] [address]- [address] May, [facility] [place] [facility] [address] [id number] [place] [address]- [address] May, [facility] [place] [facility] [address] [id number] [place] [address]- [address] Apr, [facility] [place] [facility] [address] [id number] [place] [address]- [address] Apr, [facility] [place] [facility] [address] [id number] [place] [address]- [address] Apr, [facility] [place] [facility] [address] [id number] [place] [address]- [address] Apr, [facility] [place] [facility] [address] [id number] [place] [address]- [address] Apr, [facility] [place] [facility] [address] [id number] [place] [address]- [address] Mar, [facility] [place] [facility] [address] [id number] [place] [address] Mar, [facility] [place] [facility] [address] [id number] [place] [address] Feb, [facility] [place] [facility] [address] [id number] [place] [address] Feb, [facility] [place] [facility] [address] [id number] [place] [address] Feb, [facility] [place] [facility] [address] [id number] [place] [address] Feb, [facility] [place] [facility] [address] [id number] [place] [address] Feb, [facility] [place] [facility] [address] [id number], [place] [address] Feb, [facility] [place] [facility] [address] [id number] [place] [address] Jan, [facility] [place] [facility] [address] [id number] [place] [address] Jan, [facility] [place] [facility] [address] [id number] [place] [address] Jan, [facility] [place] [facility] [address] [id number] [place] [address] Jan, [facility] [place] [facility] [address] [id number] [place] [address] Jan, [facility] [place] [facility] [address] [id number] [place] [address] Jan, [facility] [place] [facility] [address] [id number] [place] [address] Jan, [facility] [place] [facility] [address] [id number] [place] [address] Jan, [facility] [place] [facility] [address] [id number] [place] [address] Jan, [facility] [place] [facility] [address] [id number] [place] [address] 4[address] Jan, [facility] [place] [facility] [address] [id number] [place] [address] 47[address] Jan, [facility] [place] [facility] [address] [id number] [place] [address] 1678 Dec, [facility] [place] [facility] [address] [id number] [place] [address] Dec, [facility] [place] [facility] [address] [id number] [place] [address] Dec, [facility] [place] [facility] [address] [id number] [place] [address] Dec, [facility] [place] [facility] [address] [id number] [place] [address] 8607 Dec, [facility] [place] [facility] [address] [id number] [place] [address] 111[address] Dec, [facility] [place] [facility] [address] [id number] [place] [address] 164[address] November, [facility] [place] [facility] [address] [id number] [id number] [address] November, [facility] [place] [facility] [address] [id number] [place] [address] November, [facility] [place] [facility] [address] [id number] [place] [address] 8678 November, [facility] [place] [facility] [address] [id number] [place] [address] November, [facility] [place] [facility] [address] [id number] [place] [address]261 November, [facility] [place] [facility] [address] [id number] [place] [address] 1787 Oct, [facility] [place] [facility] [address] [id number] [place] [address]- 44[address] Oct, [facility] [place] [facility] [address] [id number] [place] [address] 57[address] Oct, [facility] [place] [facility] [address] [id number] [place] [address]84 Oct, [facility] [place] [facility] [address] [id number] [place] [address] 17 Sep, 2013 [facility] [place] [facility] [address] [id number] [place] [address] 17 Sep, 2013 [facility] [place] [facility] [address] [id number] [place] [address]- [address] 13 Sep, 2013 [facility] [place] [facility] [address] [id number] [place] [address] Sep, [facility] [address] [id number] [place] [address] Sep, [facility] [address] [id number] [place] [address] Aug, [facility] [address] [facility] [id number] [place] [address] Aug, [facility] [address] [id number] [place] [address] Aug, [facility] [address] [id number] [place] [address] 1154 Aug, [facility] [address] [facility] [id number] [place] [address] Aug, [facility] [address] [place] [id number] May, [facility] [address] [id number], [place] [address] May, [facility] [address] [id number], [place] [address] May, [facility] [address] [facility] [id number], [place] [address] May, [facility] [address] [id number], [place] [address] May, [facility] [place] [facility] [address] [id number], [place] [address] 16[address] Apr, [facility] [place] [facility] [address] [id number], [place] [address] Apr, [facility] [address] [id number], [place] [address] Apr, [facility] [place] [facility] [address] [facility] [id number], [place] [address] Apr, [facility] [place] [facility] [address] [id number] [place] [address]- 7869 Apr, [facility] [place] [facility] [address] [id number] [place] [address]- 64[address] Apr, [facility] [place] [facility] [address] [id number] [place] [address] 2840 Apr, [facility] [place] [facility] [address] [id number] [place] [address] 9[address] Mar, [facility] [place] [facility] [address] [id number] [place] [address] 6[address] Mar, [facility] [place] [facility] [address] [id number] [place] [address]236 24 Mar, 2013 [facility] [place] [facility] [address] [id number] [place] [address] 6648 Mar, [facility] [place] [facility] [address] [id number] [place] [address] 5185 Mar, [facility] [place] [facility] [address] [id number] [place] [address] 7413 Mar, [facility] [place] [facility] [address] [id number] [place] [address]- 5668 Feb, [facility] [place] [facility] [address] [id number] [place] [address]- 2886 Feb, [facility] [place] [facility] [address] [id number] [place] [address]- 1462 Feb, [facility] [place] [facility] [address] [id number] [place] [address]- 5878 Feb, [facility] [place] [facility] [address] [id number] [place] [address]- 1212 Feb, [facility] [place] [facility] [address] [id number] [place] [address] 5438 Feb, [facility] [place] [facility] [address] [id number] [place] [address]- 0041 Jan, [facility] [place] [facility] [address] [id number] [place] [address]- 5832 Dec, [facility] [place] [facility] [address] [id number] [place] [address]- 8967 Dec, [facility] [place] [facility] [address] [id number] [place] [address]- 6216 Dec, [facility] [place] [facility] [address] [id number] [place] [address]- 5709 Dec, [facility] [place] [facility] [address] [id number] [place] [address]- 3685 Dec, [facility] [place] [facility] [address] [id number] [place] [address]- 8637 Dec, [facility] [place] [facility] [address] [id number] [place] [address]- 4244 Dec, [facility] [place] [facility] [address] [id number] [place] [address]- 3704 Dec, [facility] [place] [facility] [address] [id number] [place] [address]- 1099 Dec, [facility] [place] [facility] [address] [id number] [place] [address]- 7899 November, [facility] [place] [facility] [address] [id number] [place] [address]- 3073 November, [facility] [place] [facility] [address] [id number] [place] [address]- 7367 Oct, [facility] [place] [facility] [address] [id number] [place] [address]- 2071 Sep, [facility] [place] [facility] [address] [id number] [place] [address]- 2052 Sep, [facility] [place] [facility] [address] [id number] [place] [address]- 1988 Sep, [facility] [place] [facility] [address] [id number] [place] [address] Sep, [facility] [address] [facility] [id number], [place] [address] Aug, [facility] [address] [id number], [place] [address] Aug, [facility] [address] [id number], [place] [address] 49[address] Jul, [facility] [id number], [place] [address]46 Jul, [facility] [address] [id number], [place] [address] Jul, [facility] [address] [id number], [place] [address] 2546 Sep, [facility] [id number], [place] [address] Sep, [facility] [address] [id number], [place] [address] 7066 Sep, IMMUNIZATIONS No Known Immunizations SOCIAL HISTORY Never Assessed REASON FOR VISIT Medication refill request PLAN OF CARE VITAL SIGNS MEDICATIONS Medication Instructions Dosage Frequency Start Date End Date Duration Status Ambien 10 mg Orally Once a day 1 tablet at bedtime as needed 24h Dec, 28 days Active Gabapentin 600 MG Orally 3 times a day 2 tablet 8h 30 days Active Lyrica 150 MG Orally 3 times a day 1 capsule 8h Feb, 28 days Active Percocet 10-325 MG Orally every 4 hrs 1 tablet 4h Apr, 28 days Active RESULTS No Results PROCEDURES [...]
--- OUTSIDE RECORDS SUMMARY | 2018-06-09 17:45 | XMS REPORT ---
Author Author LINDA BENTLEY Organization [facility] Address [address] [place] [address] Care Team Providers Care Power Line Installer Name Role Phone LINDA BENTLEY Unavailable PROBLEMS Type Condition ICD9-CM Code UYV09-SB Code Onset Dates Condition Status SNOMED Code Problem Abdominal pain, left lower quadrant R10.32 Active 052075796 Problem Mood disorder F39 Active 30153939 Problem Hypertension, benign I10 Active 14598967 Problem Chronic pain syndrome G89.4 Active 108870157 Problem Attention to urostomy Z43.6 Active 905139776 Problem Anxiety F41.9 Active 19050037 Problem Neuropathy G62.9 Active 566651574 Problem Malignant neoplasm of colon, unspecified part of colon C18.9 Active 867341252 Problem Polyneuropathy G62.9 Active 05865628 Problem Incontinence of feces, unspecified fecal incontinence type R15.9 Active 28765114 Problem Chronic fatigue, unspecified R53.82 Active 207569735 Problem Hydronephrosis with ureteral stricture, not elsewhere classified N13.1 Active 58323654 Problem Primary insomnia F51.01 Active 976190871 Problem 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 483709144 ALLERGIES Substance Reaction Event Type Date Status Morphine Unknown Drug Allergy Jul, Active Codeine Unknown Drug Allergy Jul, Active ENCOUNTERS Encounter Location Date Diagnosis [facility] [id number] [address] Jan, [facility] [id number] [address] 3330 Dec, Polyneuropathy G62.9 [facility] [id number] [address] 1174 Dec, Mood disorder F39 [facility] [id number] [address] 6117 November, Polyneuropathy G62.9 [facility] [address] [address] November, Medicare annual wellness visit, initial Z00.00 [facility] [address] [address] 1493 November, Mood disorder F39 [facility] [id number] [place] [address] 81980- 7059 Oct, Polyneuropathy G62.9 [facility] [address], [place] [address] 0697 Oct, [facility] [id number] [place] [address] 35766- 4274 Oct, [facility] [id number] [place] [address] 10230- 1920 Oct, Mood disorder F39 ; Attention to urostomy Z43.6 ; Chronic pain syndrome G89.4 and Polyneuropathy G62.9 [facility] [address], [place] [address] 4319 Sep, Polyneuropathy G62.9 [facility] [id number] [place] [address] 98997- 1670 Sep, [facility] [address], [place] [address]- 5564 Sep, Polyneuropathy G62.9 [facility] [address] [address] 3167 Aug, Polyneuropathy G62.9 [facility] [id number] [place] [address] 97773- 8144 Aug, Malignant neoplasm of colon, unspecified part of colon C18.9 and Polyneuropathy G62.9 [facility] [address], [place] [address] 3329 Aug, Neuropathy G62.9 and Polyneuropathy G62.9 [facility] [address], [place] [address] 3080 Jul, Encounter for drug screening Z02.83 [facility] [id number] [place] [address] 66520- 8031 Jul, Polyneuropathy G62.9 [facility] [id number] [place] [address] 80286- 7119 Jul, [facility] [id number] [place] [address] 86574- 6855 Jul, Neuropathy G62.9 and Anxiety F41.9 [facility] [id number] [place] [address] 38196- 8618 Jul, [facility] [id number] [place] [address] 44063- 3207 Jul, [facility] [id number] [place] [address] 64159- 3599 Jul, [facility] [id number] [place] [address] 99177- 3763 Jul, Polyneuropathy G62.9 [facility] [id number] [place] [address] 82706- 3318 Jul, [facility] [id number] [place] [address] 32926- 4280 Jun, [facility] [id number] [place] [address] 62377- 6615 Jun, [facility] [id number] [place] [address] 17065- 4583 Jun, [facility] [id number] [address] Jun, Encounter for dental examination Z01.20 [facility] [address], [place] [address] 7021 Jun, Polyneuropathy G62.9 and Anxiety F41.9 [facility] [address], [place] [address] 0616 Jun, [facility] [address] [id number] [address] May, Dental examination Z01.20 [facility] [id number] [place] [address] 63520- 3386 May, Polyneuropathy G62.9 [facility] [id number] [place] [address] 93217- 2698 Apr, Polyneuropathy G62.9 [facility] [id number] [place] [address] 43278- 4014 Apr, Polyneuropathy G62.9 [facility] [id number] [place] [address] 73083- 5799 Apr, Hypertension, benign I10 ; Polyneuropathy G62.9 and Anxiety F41.9 [facility] [id number] [place] [address] 41287- 4116 Apr, Primary insomnia F51.01 and Polyneuropathy G62.9 [facility] [id number] [place] [address] 57385- 1470 Apr, Primary insomnia F51.01 and Polyneuropathy G62.9 [facility] [id number] [place] [address] 90775- 4122 Mar, Primary insomnia F51.01 [facility] [id number] [place] [address] 91311- 7133 Mar, [facility] [id number] [place] [address] 55166- 3243 Mar, Polyneuropathy G62.9 [facility] [id number] [place] [address] 56812- 7012 Feb, Primary insomnia F51.01 [facility] [address] [place] [address] 5495 Feb, [facility] [address], [place] [address] 1290 Feb, [facility] [address], [place] [address] 6308 Feb, Polyneuropathy G62.9 [facility] [id number] [place] [address], [place] [address]- 9835 Feb, Primary insomnia F51.01 [facility] [id number] [place] [address]- 4536 Jan, [facility] [id number] [place] [address], [place] [address]- 4437 Jan, [facility] [id number] [place] [address], [place] [address]- 6427 Dec, [facility] [id number] [place] [address] 52893- 1064 Dec, Primary insomnia F51.01 [facility] [id number] [place] [address]- 6801 Dec, Primary insomnia F51.01 [facility] [id number] [place] [address]- 9619 Dec, [facility] [address], [place] [address]- 0119 Dec, [facility] [address], [place] [address]- 5293 Dec, [facility] [address], [place] [address]- 2069 Dec, [facility] [address], [place] [address]- 9562 November, Primary insomnia F51.01 and Polyneuropathy G62.9 [facility] [address], [place] [address]- 2817 November, [facility] [id number] [place] [address] 11837- 4026 November, Abdominal pain, left lower quadrant R10.32 [facility] [id number] [place] [address] 789368- 0925 November, [facility] [id number] [place] [address] 36925- 3207 Oct, [facility] [id number] [place] [address] 36384- 7969 Oct, Abdominal pain, left lower quadrant R10.32 ; 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 and Neuropathy G62.9 [facility] [id number] [place] [address] 56692- 1321 Oct, [facility] [id number] [place] [address] 17489- 6791 Sep, [facility] [id number] [place] [address] [id number] Sep, [facility] [id number] [place] [address] 83692- 6405 Sep, [facility] [id number] [place] [address] 48787- 1414 Aug, [facility] [id number] [place] [address] 23115- 5254 Aug, [facility] [id number] [place] [address] 08771- 0963 Aug, Abdominal pain, left lower quadrant R10.32 ; Neuropathy G62.9 and Anxiety F41.9 [facility] [address] [place] [address] Jul, [facility] [id number] [place] [address] 23836- 0609 Jul, [facility] [id number] [place] [address] 97583 -2952 Jul, [facility] [address] [facility] [id number] [address]- 5079 Jul, [facility] [address] [facility] [id number] [address]- 5666 Jul, [facility] [address] [facility] [id number] 2429 Jun, [facility] [address] [facility] [id number] [place] [address] 00927- 9920 May, [facility] [address] [facility] [id number], [place] [address]- 9433 May, [facility] [address] [facility] [id number] [place] [address] 96084- 0031 Apr, [facility] [address], [place] [address]- 9102 Apr, Muscle spasms of both lower extremities M62.838 and Cellulitis, unspecified cellulitis site L03.90 [facility] [id number], [place] [address]- 7145 Apr, [facility] [id number], [place] [address]- 9984 23 Mar, 2016 Generalized abdominal pain R10.84 [facility] [id number], [place] [address]- 9207 20 Mar, 2016 [facility] [address] [facility] [id number], [place] [address]- 3044 14 Mar, 2016 [facility] [address] [facility] [id number], [place] [address]- 9561 14 Mar, 2016 [facility] [address] [facility] [id number], [place] [address]- 2057 13 Mar, 2016 [facility] [id number], [place] [address]- 8007 12 Mar, 2016 [facility] [address], [place] [address]- 0975 Mar, [facility] [id number] [place] [address] 69651- 8636 Mar, [facility] [address], [place] [address]- 6032 Feb, Other specified diseases of anus and rectum K62.89 [facility] [id number] [place] [address] 02711- 1124 Feb, [facility] [id number] [place] [address] 83055- 1629 Feb, Dizziness R42 [facility] [id number] [place] [address] 13020- 9025 Feb, [facility] [id number] [place] [address] 72556- 6017 Jan, Polyneuropathy G62.9 [facility] [id number] [place] [address] 80445- 0252 Jan, Other specified diseases of anus and rectum K62.89 [facility] [address], [place] [address]- 0243 Jan, [facility] [address], [place] [address]1301 Jan, [facility] [address], [place] [address]- 8856 Jan, [facility] [address], [place] [address]- 8335 Jan, Dizziness R42 [facility] [address], [place] [address]- 6000 Dec, [facility] [address], [place] [address]- 7565 Dec, [facility] [id number] [place] [address] 13531- 2521 Dec, [facility] [address], [place] [address]- 3105 Dec, Dizziness R42 [facility] [id number] [place] [address] 24084- 2484 November, [facility] [id number] [place] [address] 93175- 2376 Oct, [facility] [id number] [place] [address] 71238- 4849 Oct, [facility] [id number] [place] [address] 25549- 2129 Oct, [facility] [id number] [place] [address] 99749- 8680 Oct, [facility] [id number] [place] [address] 18389- 9557 Sep, [facility] [id number] [place] [address] 05818- 9818 Sep, Primary insomnia F51.01 [facility] [id number] [place] [address] 47678- 6880 Sep, Primary insomnia F51.01 [facility] [id number] [place] [address] 15627- 5802 Sep, [facility] [id number] [place] [address] 38608- 0906 Aug, [facility] [address], [place] [address]- 1356 Aug, [facility] [id number] [place] [address] 72732- 3969 Aug, Primary insomnia F51.01 ; Mood disorder F39 ; Nausea and vomiting, unspecified intactability, vomiting of unspecified type R11.2 and Diarrhea R19.7 [facility] [id number] [place] [address] 52854- 1209 15 Aug, 2015 [facility] [address] [place] [address] 62547- 2772 Aug, Folliculitis L73.9 [facility] [id number] [place] [address] 39909- 0515 Aug, [facility] [id number] [place] [address] 90143- 4454 Aug, [facility] [id number] [place] [address] 84903- 2314 Jul, Folliculitis L73.9 [facility] [id number] [place] [address] 66604- 6635 Jul, [facility] [id number] [place] [address] 45471- 8177 Jun, Folliculitis L73.9 [facility] [id number] [place] [address] 21005- 6053 Jun, [facility] [id number] [place] [address] 10653- 4049 May, Polyneuropathy G62.9 [facility] [id number] [place] [address] 50579- 4041 May, Other specified diseases of anus and rectum K62.89 [facility] [id number] [place] [address] 54117- 8834 May, [facility] [id number] [place] [address] 57735- 2121 13 May, 2015 Primary insomnia F51.01 [facility] [id number] [place] [address] 42167- 2144 May, [facility] [id number] [place] [address] 09889- 2121 May, [facility] [id number] [place] [address] 24051- 3821 Apr, Other specified diseases of anus and rectum K62.89 ; Chronic fatigue R53.82 ; Urinary tract infection, site not specified N39.0 and Enterococcus as the cause of diseases classified elsewhere B95.2 [facility] [address], [place] [address]- 7506 16 Apr, 2015 [facility] [id number] [place] [address] 40499- 9106 Apr, [facility] [id number] [place] [address] 34943 2540 Apr, 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 [facility] [id number] [place] [address] 19868- 7636 Apr, [facility] [id number] [place] [address] 38916- 3477 Mar, [facility] [id number] [place] [address] 18560- 3126 23 Mar, 2015 [facility] [id number] [place] [address] 71406 2546 17 Mar, 2015 [facility] [id number] [place] [address] 60004 2547 14 Mar, 2015 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 [facility] [address], [place] [address] 2546 12 Mar, 2015 [facility] [id number] [place] [address] 44924 2546 11 Mar, 2015 [facility] [address], [place] [address] 2546 11 Mar, 2015 [facility] [id number] [place] [address] 09385 2546 10 Mar, 2015 [facility] [address], [place] [address] 2546 Feb, [facility] [id number] [address]- [address] Feb, [facility] [address] [facility] [id number], [place] [address]- 4192 Feb, [facility] [address], [place] [address]- [address] Jan, [facility] [address] [facility] [id number], [place] [address] 2546 Jan, Nausea 787.02 and Neuropathy 355.9 [facility] [address] [facility] [id number], [place] [address] 2549 Jan, [facility] [id number] [place] [address] 04790- [address] Jan, [facility] [address], [place] [address]- 6537 Jan, [facility] [address] [id number] [id number] Jan, Dental examination V72.[address] [facility] [address], [place] [address]- [address] Jan, [facility] [address], [place] [address]- [address] Dec, [facility] [address], [place] [address]- 1404 Dec, [facility] [id number], [place] [address] Dec, Neuropathy [address] [facility] [address] [facility] [id number] [place] [address] November, [facility] [address] [facility] [id number], [place] [address] November, [facility] [place] [facility] [id number], [place] [address] November, [facility] [id number] [place] [address] 14 Oct, 2014 [facility] [place] [facility] [address] [id number] [place] [address] 13 Oct, 2014 [facility] [place] [facility] [address] [id number] [place] [address] 30 Sep, 2014 [facility] [place] [facility] [address] [id number] [place] [address] Sep, [facility] [place] [facility] [address] [id number] [place] [address] Sep, [facility] [place] [facility] [address] [id number] [place] [address] [address] Sep, [facility] [place] [facility] [address] [id number] [place] [address]- [address] Sep, [facility] [place] [facility] [address] [id number] [place] [address] Sep, [facility] [place] [facility] [address] [facility] [id number] [place] [address]- 119[address] Sep, [facility] [place] [facility] [address] [id number] [place] [address] Sep, [facility] [place] [facility] [address] [facility] [id number] [place] [address] Aug, 2014 [facility] [place] [facility] [address] [facility] [id number] [place] [address]- [address] Aug, 2014 [facility] [place] [facility] [address] [facility] [id number], [place] [address] Aug, [facility] [place] [facility] [address] [id number] [place] [address]- [address] Aug, 2014 [facility] [place] [facility] [address] [facility] [id number] [place] [address]- [address] Aug, 2014 [facility] [place] [facility] [address] [facility] [id number] [place] [address] Aug, [facility] [place] [facility] [address] [id number] [place] [address] Aug, [facility] [place] [facility] [address] [id number] [place] [address] Aug, [facility] [place] [facility] [address] [id number] [place] [address] Jul, [facility] [place] [facility] [address] [id number] [place] [address] Jul, [facility] [place] [facility] [address] [id number] [place] [address]- [address] Jun, [facility] [place] [facility] [address] [id number] [place] [address] Jun, [facility] [place] [facility] [address] [id number] [place] [address] Jun, [facility] [place] [facility] [address] [id number] [place] [address] Jun, [facility] [place] [facility] [address] [id number] [place] [address]- [address] Jun, [facility] [place] [facility] [address] [id number] [place] [address] Jun, [facility] [place] [facility] [address] [id number] [place] [address]- 3841 Jun, [facility] [place] [facility] [address] [id number] [place] [address]- [address] Jun, [facility] [place] [facility] [address] [id number] [place] [address] Jun, [facility] [place] [facility] [address] [id number] [place] Jun, [facility] [place] [facility] [address] [id number] [place] [address]- [address] Jun, [facility] [place] [facility] [address] [id number] [place] [address] May, [facility] [place] [facility] [address] [id number] [place] [address]- [address] May, [facility] [place] [facility] [address] [id number] [place] [address]- [address] May, [facility] [place] [facility] [address] [id number] [place] [address]- [address] May, [facility] [place] [facility] [address] [id number] [place] [address]- [address] May, [facility] [place] [facility] [address] [id number] [place] [address]- [address] May, [facility] [place] [facility] [address] [id number] [place] [address]- [address] May, [facility] [place] [facility] [address] [id number] [place] [address] May, [facility] [place] [facility] [address] [id number] [place] [address] May, [facility] [place] [facility] [address] [id number] [place] [address] 33[address] Apr, [facility] [place] [facility] [address] [id number] [place] [address] Apr, [facility] [place] [facility] [address] [id number] [place] [address] 28[address] Apr, [facility] [place] [facility] [address] [id number], [place] [address] Apr, [facility] [place] [facility] [address] [id number] [place] [address] Apr, [facility] [place] [facility] [address] [id number] [place] [address] Mar, [facility] [place] [facility] [address] [id number] [place] [address] Mar, [facility] [place] [facility] [address] [id number] [place] [address] Feb, [facility] [place] [facility] [address] [id number] [place] [address] Feb, [facility] [place] [facility] [address] [id number] [place] [address] 48[address] Feb, [facility] [place] [facility] [address] [id number] [place] [address] Feb, [facility] [place] [facility] [address] [id number] [place] [address] Feb, [facility] [place] [facility] [address] [id number] [place] [address] 85[address] Feb, [facility] [place] [facility] [address] [id number] [place] [address] Jan, [facility] [place] [facility] [address] [id number] [place] [address]- [address] Jan, [facility] [place] [facility] [address] [id number] [facility] [place] [address] Jan, [facility] [place] [facility] [address] [id number] [place] [address] 8[address] Jan, [facility] [place] [facility] [address] [id number] [place] [address] Jan, [facility] [place] [facility] [address] [id number] [facility] [place] [address] 119[address] Jan, [facility] [place] [facility] [address] [id number] [place] [address] 56[address] Jan, [facility] [place] [facility] [address] [id number] [place] [address]- 0606 Jan, [facility] [place] [facility] [address] [id number] [place] [address] 7408 Jan, [facility] [place] [facility] [address] [id number] [place] [address]- 8[address] Jan, [facility] [place] [facility] [address] [id number] [place] [address]- 8439 Jan, [facility] [place] [facility] [address] [id number] [place] [address]- 9[address] Dec, [facility] [place] [facility] [address] [id number] [place] [address] 3149 Dec, [facility] [place] [facility] [address] [id number] [place] [address]- 9789 Dec, [facility] [place] [facility] [address] [id number] [place] [address] 36[address] Dec, [facility] [place] [facility] [address] [id number] [place] [address]- 0751 Dec, [facility] [place] [facility] [address] [id number] [place] [address]- 4111 Dec, [facility] [place] [facility] [address] [id number] [place] [address]- 9277 November, [facility] [place] [facility] [address] [id number] [place] [address] 6646 November, [facility] [place] [facility] [address] [id number] [place] [address]- 8058 November, [facility] [place] [facility] [address] [id number] [place] [address]- 8118 November, [facility] [place] [facility] [address] [id number] [place] [address]- 8291 November, [facility] [place] [facility] [address] [id number] [place] [address]- 7597 November, [facility] [place] [facility] [address] [id number] [place] [address] 6771 Oct, [facility] [place] [facility] [address] [id number] [place] [address] 5105 Oct, [facility] [place] [facility] [address] [id number] [place] [address] 16 Oct, 2013 [facility] [address] [id number] [place] [address] Oct, [facility] [address] [id number] [place] [address]- [address] Sep, [facility] [address] [id number] [place] [address]- 6236 Sep, [facility] [address] [id number] [place] [address] 4938 Sep, [facility] [address] [id number] [place] [address]- [address] Sep, [facility] [address] [id number] [place] [address]- 1797 Sep, [facility] [address] [id number] [place] [address] 1451 Aug, [facility] [address] [id number] [place] [address]- 7761 Aug, [facility] [address] [id number] [place] [address]- 5567 Aug, [facility] [address] [id number] [place] [address]- 1143 Aug, [facility] [address] [facility] [id number] [place] [address]- [address]44 14 Aug, [address] [facility] [address] [place] [id number] May, [facility] [address] [id number] [place] [address]- [address] May, [facility] [address] [id number] [place] [address]- [address] May, [facility] [address] [id number], [place] [address] 39[address] May, [facility] [place] [facility] [address] [id number] [place] [address]- 6656 May, [facility] [place] [facility] [address] [id number] [place] [address] 2227 Apr, [facility] [place] [facility] [address] [id number] [place] [address]- 7485 Apr, [facility] [place] [facility] [address] [id number] [place] [address]- 7421 Apr, [facility] [place] [facility] [address] [id number] [place] [address]- 8521 Apr, [facility] [place] [facility] [address] [id number] [place] [address]- 8360 Apr, [facility] [place] [facility] [address] [id number] [place] [address]- 8969 Apr, [facility] [place] [facility] [address] [id number] [place] [address]- 5887 Apr, [facility] [place] [facility] [address] [id number] [place] [address] Mar, [facility] [place] [facility] [address] [id number] [place] [address]- 9442 Mar, [facility] [place] [facility] [address] [id number] [place] [address]- 8798 24 Mar, 2013 [facility] [place] [facility] [address] [id number] [place] [address]- 7886 16 Mar, 2013 [facility] [place] [facility] [address] [id number] [place] [address]- 1399 12 Mar, 2013 [facility] [place] [facility] [address] [id number] [place] [address]- 9418 06 Mar, 2013 [facility] [place] [facility] [address] [id number] [place] [address]- 0557 Feb, [facility] [place] [facility] [address] [id number] [place] [address]- 2125 Feb, [facility] [place] [facility] [address] [id number] [place] [address]- 2306 Feb, [facility] [place] [facility] [address] [id number] [place] [address]- 2386 Feb, [facility] [place] [facility] [address] [id number] [place] [address]- 1456 Feb, [facility] [place] [facility] [address] [id number] [place] [address]- 9063 Feb, [facility] [place] [facility] [address] [id number] [place] [address]- 9711 Jan, [facility] [place] [facility] [address] [id number] [place] [address]- 0231 Dec, [facility] [place] [facility] [address] [id number] [place] [address]- 2582 Dec, [facility] [place] [facility] [address] [id number] [place] [address]- 7544 Dec, [facility] [place] [facility] [address] [id number] [place] [address]- 5757 Dec, [facility] [place] [facility] [address] [id number] [place] [address]- 3115 Dec, [facility] [place] [facility] [address] [id number] [place] [address]- 9764 Dec, [facility] [place] [facility] [address] [id number] [place] [address]- 8114 Dec, [facility] [place] [facility] [address] [id number] [place] [address]- 9365 Dec, [facility] [place] [facility] [address] [id number] [place] [address]- 4720 Dec, [facility] [place] [facility] [address] [id number] [place] [address]- 8079 November, [facility] [place] [facility] [address], [place] [address] November, [facility] [address], [place] [address] 2406 Oct, [facility] [address], [place] [address]- 2546 Sep, [facility] [address], [place] [address]- 0196 Sep, [facility] [address], [place] [address]- 2546 Sep, [facility] [address], [place] [address]- 2546 Sep, [facility] [address], [place] [address]- 2546 Aug, [facility] [address], [place] [address]- 2546 Aug, [facility] [address], [place] [address]- 3286 Jul, [facility] [address], [place] [address]- 3156 Jul, [facility] [address] [id number], [place] [address]- 4136 Jul, [facility] [address] [id number], [place] [address]- 4856 Sep, [facility] [address] [id number], [place] [address]- 5886 Sep, [facility] [address] [id number], [place] [address]- 7426 Sep, IMMUNIZATIONS No Known Immunizations SOCIAL HISTORY Never Assessed REASON FOR VISIT Pain management (chronic), PT also brought paperwork for us to fill out for his disability-Oneyda LIRA PLAN OF CARE VITAL SIGNS Height 67 in 2017-08-03 Weight 202.6 lbs 2017-08-03 Temperature 97.7 degrees Fahrenheit 2017-08-03 Heart Rate 78 bpm 2017-08-03 Respiratory Rate 20 2017-08-03 BMI 31.73 kg/m2 2017-08-03 Blood pressure systolic 112 mmHg 2017-08-03 Blood pressure diastolic 80 mmHg 2017-08-03 MEDICATIONS Medication Instructions Dosage Frequency Start Date End Date Duration Status Lyrica 150 MG Orally 3 times a day 1 capsule 8h Feb, Active Percocet 10-325 MG Orally every 4 hrs 1 tablet 4h Jul, Active Oxycodone HCl 30 MG Orally 2 times a day 1 tablet as needed 12h Jul, Active Promethazine HCl 25 MG Orally every 6 hrs 1 tablet as needed 6h Active Lisinopril 10 mg Orally Once a day 1 tablet 24h Jun, 30 day(s) Active Wheelchair 1 as directed Dec, Active Acyclovir 5 % Externally Five times a day 1 application to affected area Dec, Active Zoloft 100 mg Orally Once a day 1 tablet 24h 30 Active Hydrocodone Bitartrate Active Gabapentin 600 MG Orally 3 times a day 2 tablet 8h 30 days Active RESULTS No Results PROCEDURES Procedure Date Ordered Result Body Site [facility] VISIT ESTABLISHED PATIENT Aug 03, 2017 INSTRUCTIONS MEDICATIONS ADMINISTERED No Known Medications [...]
--- OUTSIDE RECORDS SUMMARY | 2018-06-09 17:46 | XMS REPORT ---
Author Author LINDA BENTLEY [facility] Address [address] [place] [address] Care Team Providers Care [employer] Consultant Name Role Phone LINDA BENTLEY Unavailable PROBLEMS Type Condition ICD9-CM Code GVV02-KS Code Onset Dates Condition Status SNOMED Code Problem Abdominal pain, left lower quadrant R10.32 Active 299095819 Problem Mood disorder F39 Active 98393158 Problem Hypertension, benign I10 Active 30989334 Problem Chronic pain syndrome G89.4 Active 351108074 Problem Attention to urostomy Z43.6 Active 216736666 Problem Anxiety F41.9 Active 92226193 Problem Neuropathy G62.9 Active 915431187 Problem Malignant neoplasm of colon, unspecified part of colon C18.9 Active 010243179 Problem Polyneuropathy G62.9 Active 20630871 Problem Incontinence of feces, unspecified fecal incontinence type R15.9 Active 67952203 Problem Chronic fatigue, unspecified R53.82 Active 594027299 Problem Hydronephrosis with ureteral stricture, not elsewhere classified N13.1 Active 96180899 Problem Primary insomnia F51.01 Active 037590180 Problem 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 593233322 ALLERGIES No Information ENCOUNTERS Encounter Location Date Diagnosis [facility] [address], [place] [address] Dec, [facility] [address], [place] [address] November, Polyneuropathy G62.9 [facility] [address], [place] [address] November, Medicare annual wellness visit, initial Z00.00 [facility] [address], [place] [address] November, Mood disorder F39 [facility] [id number] [place] [address] 31429- 8268 Oct, Polyneuropathy G62.9 [facility] [address] [address]- [address] Oct, [facility] [address] [address]- 8467 Oct, [facility] [address] [address]- 6796 Oct, Mood disorder F39 ; Attention to urostomy Z43.6 ; Chronic pain syndrome G89.4 and Polyneuropathy G62.9 [facility] [address] [address]- 3158 Sep, Polyneuropathy G62.9 [facility] [address] [address]21- 6950 Sep, [facility] [address] [address]- 8335 Sep, Polyneuropathy G62.9 [facility] [id number] [place] [address] 33168- 5583 Aug, Polyneuropathy G62.9 [facility] [id number] [place] [address] 22209- 3316 Aug, Malignant neoplasm of colon, unspecified part of colon C18.9 and Polyneuropathy G62.9 [facility] [id number] [place] [address] 91670- 6193 Aug, Neuropathy G62.9 and Polyneuropathy G62.9 [facility] [address] [address]62- 8641 Jul, Encounter for drug screening Z02.83 [facility] [id number] [place] [address] 94529- 8976 Jul, Polyneuropathy G62.9 [facility] [address] [place] [address] 37[address] Jul, [facility] [id number] [place] [address] 61861- 2052 Jul, Neuropathy G62.9 and Anxiety F41.9 [facility] [id number] [place] [address] 45024- 7496 Jul, [facility] [id number] [place] [address] 47066- 4620 Jul, [facility] [id number] [place] [address] 33340- 2452 Jul, [facility] [address] 51604- 4455 Jul, Polyneuropathy G62.9 [facility] [id number] [place] [address] 30953- 4420 Jul, [facility] [id number] [place] [address] 61733- 5686 Jun, [facility] [id number] [place] [address] 64666- 8701 Jun, [facility] [id number] [place] [address] 67009- 7024 Jun, [facility] [id number] [place] [address] 07 Jun, 2017 Encounter for dental examination Z01.20 [facility] [id number] [place] [address] 78922- 4336 04 Jun, 2017 Polyneuropathy G62.9 and Anxiety F41.9 [facility] [id number] [place] [address] 51572- 3934 Jun, [facility] [id number] [place] [address] May, Dental examination Z01.20 [facility] [id number] [place] [address] 35872- 0260 May, Polyneuropathy G62.9 [facility] [id number] [place] [address] 44221- 1874 Apr, Polyneuropathy G62.9 [facility] [id number] [place] [address] 69714- 1576 Apr, Polyneuropathy G62.9 [facility] [id number] [place] [address] 03630- 6244 Apr, Hypertension, benign I10 ; Polyneuropathy G62.9 and Anxiety F41.9 [facility] [address] 00[address]- 6929 Apr, Primary insomnia F51.01 and Polyneuropathy G62.9 [facility] [id number] [place] [address] 48566- 5540 Apr, Primary insomnia F51.01 and Polyneuropathy G62.9 [facility] [id number] [place] [address] 43160- 7835 Mar, Primary insomnia F51.01 [facility] [id number] [place] [address] 44483- 9567 Mar, [facility] [id number] [place] [address] 59456- 4645 Mar, Polyneuropathy G62.9 [facility] [id number] [place] [address] 27646- 2098 Feb, Primary insomnia F51.01 [facility] [id number] [place] [address] 66241- 8449 Feb, [facility] [id number] [place] [address] 11045- 8977 Feb, [facility] [id number] [place] [address] 55644- 1668 Feb, Polyneuropathy G62.9 [facility] [address], [place] [address]- 8409 Feb, Primary insomnia F51.01 [facility] [id number] [place] [address], [place] [address]- 1437 Jan, [facility] [id number], [place] [address]- 2375 Jan, [facility] [id number] [place] [address] 85774- 3466 Dec, [facility] [id number] [place] [address] 71037- 9788 Dec, Primary insomnia F51.01 [facility] [id number] [place] [address] 20247- 3935 Dec, Primary insomnia F51.01 [facility] [id number] [place] [address] 00938- 6026 Dec, [facility] [id number] [place] [address] 72830- 4290 Dec, [facility] [id number] [place] [address] 83835- 0290 Dec, [facility] [id number] [place] [address] 05022- 7774 Dec, [facility] [address] [place] [address] 62096- 4754 November, Primary insomnia F51.01 and Polyneuropathy G62.9 [facility] [address], [place] [address]- 2859 November, [facility] [id number] [place] [address] 42426- 2265 November, Abdominal pain, left lower quadrant R10.32 [facility] [address], [place] [address]- 8784 November, [facility] [id number] [place] [address] 32494- 2945 Oct, [facility] [id number] [place] [address] 23446- 5280 Oct, Abdominal pain, left lower quadrant R10.32 ; 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 and Neuropathy G62.9 [facility] [address] [place] [address] 24645- 4284 Oct, [facility] [id number] [place] [address] 93724- 2186 Sep, [facility] [id number] [place] [address] [id number] Sep, [facility] [id number] [place] [address] 43243- 2818 Sep, [facility] [id number] [place] [address] 98243- 7689 Aug, [facility] [id number] [place] [address] 95104- 2499 Aug, [facility] [id number] [place] [address] 56141- 4087 Aug, Abdominal pain, left lower quadrant R10.32 ; Neuropathy G62.9 and Anxiety F41.9 [facility] [address] [place] [address] Jul, [facility] [id number] [place] [address] 68392- 2992 Jul, [facility] [id number] [place] [address] 07650 -7561 Jul, [facility] [id number] [place] [address] 20549- 3372 Jul, [facility] [address] [place] [address] 07772- 7675 Jul, [facility] [id number] [place] [address] 63487- 9233 Jun, [facility] [address], [place] [address]- 0154 May, [facility] [id number] [place] [address] 09355- 8953 May, [facility] [id number] [place] [address] 86799- 2305 Apr, [facility] [id number] [place] [address] 45963- 6927 Apr, Muscle spasms of both lower extremities M62.838 and Cellulitis, unspecified cellulitis site L03.90 [facility] [id number] [place] [address] 61361- 8154 Apr, [facility] [id number] [place] [address] 90994- 0642 23 Mar, 2016 Generalized abdominal pain R10.84 [facility] [address] [place] [address] 02232- 1729 20 Mar, 2016 [facility] [address] [place] [address] 30515- 3374 14 Mar, 2016 [facility] [id number] [place] [address] 72776- 9235 14 Mar, 2016 [facility] [address] [place] [address] 29309- 1105 13 Mar, 2016 [facility] [address] [place] [address] 99234- 8689 12 Mar, 2016 [facility] [address], [place] [address]- 7021 09 Mar, 2016 [facility] [id number] [place] [address] 53450- 6423 06 Mar, 2016 [facility] [address], [place] [address]- 2518 Feb, Other specified diseases of anus and rectum K62.89 [facility] [address] [facility] [id number] [place] [address]- 9365 Feb, [facility] [address] [facility] [id number] [place] [address], [place] [address]- 2025 Feb, Dizziness R42 [facility] [address] [facility] [id number] [place] [address]- 3113 Feb, [facility] [address] [facility] [id number] [place] [address], [place] [address]- 9271 Jan, Polyneuropathy G62.9 [facility] [address] [id number] [place] [address], [place] [address]- 5753 Jan, Other specified diseases of anus and rectum K62.89 [facility] [address] [facility] [id number] [place] [address]- 9694 Jan, [facility] [address] [facility] [id number] [place] [address] 15955 -7180 Jan, [facility] [address] [facility] [id number] [place] [address]- 2979 Jan, [facility] [id number] [place] [address], [place] [address]- 5280 Jan, Dizziness R42 [facility] [address], [place] [address]- 7809 Dec, [facility] [address], [place] [address]- 1661 Dec, [facility] [address] [facility] [id number], [place] [address]- 3375 Dec, [facility] [id number] [place] [address], [place] [address]- 2069 Dec, Dizziness R42 [facility] [address] [facility] [id number], [place] [address]- 3090 November, [facility] [address] [place] [address] 92030- 8552 Oct, [facility] [id number] [place] [address] 55403- 6976 Oct, [facility] [id number] [place] [address] 16543- 8079 Oct, [facility] [id number] [place] [address] 94602- 0793 Oct, [facility] [id number] [place] [address] 76474- 3276 Sep, [facility] [id number] [place] [address] 84028- 2247 Sep, Primary insomnia F51.01 [facility] [id number] [place] [address] 76768- 9226 Sep, Primary insomnia F51.01 [facility] [id number] [place] [address] 26475- 8589 Sep, [facility] [id number] [place] [address] 75699- 9278 Aug, [facility] [id number] [place] [address] 20352- 6528 Aug, [facility] [id number] [place] [address] 49087- 2072 Aug, Primary insomnia F51.01 ; Mood disorder F39 ; Nausea and vomiting, unspecified intactability, vomiting of unspecified type R11.2 and Diarrhea R19.7 [facility] [id number] [place] [address] 59589- 6455 Aug, [facility] [id number] [place] [address] 41176- 3429 05 Aug, 2015 Folliculitis L73.9 [facility] [id number] [place] [address] 99519- 5252 Aug, [facility] [id number] [address]- 0649 Aug, [facility] [address] [place] [address] 50498- 3037 Jul, Folliculitis L73.9 [facility] [address], [place] [address]- 1877 Jul, [facility] [address] [place] [address] 70206- 3823 Jun, Folliculitis L73.9 [facility] [address] [place] [address] 57627- 1600 Jun, [facility] [id number] [place] [address] 06382- 6127 May, Polyneuropathy G62.9 [facility] [address] [place] [address] 32514- 0731 May, Other specified diseases of anus and rectum K62.89 [facility] [address] [place] [address] 10907- 4068 May, [facility] [id number] [place] [address] 62399- 8387 May, Primary insomnia F51.01 [facility] [address], [place] [address]- 9584 May, [facility] [address] [place] [address] 76430- 9252 May, [facility] [address] [place] [address] 92638- 5854 Apr, Other specified diseases of anus and rectum K62.89 ; Chronic fatigue R53.82 ; Urinary tract infection, site not specified N39.0 and Enterococcus as the cause of diseases classified elsewhere B95.2 [facility] [address], [place] [address]- 6682 Apr, [facility] [id number], [place] [address]- 1336 15 Apr, 2015 [facility] [address] 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 [id number], [place] [address] 2546 26 Mar, 2014 [facility] [place] [facility] [address] [facility] [id number], [place] [address] 2546 23 Mar, 2014 [facility] [place] [facility] [address] [facility] [id number] [place] [address] 81352 2546 17 Mar, 2015 [facility] [place] [facility] [address] 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 [id number], [place] [address] 2546 11 Mar, 2015 [facility] [place] [facility] [id number], [place] [address] 2546 11 Mar, 2015 [facility] [place] [facility] [address] [facility] [id number], [place] [address] 2547 10 Mar, 2015 [facility] [place] [facility] [address] [facility] [id number], [place] [address] 2541 Feb, [facility] [place] [facility] [address] [facility] [id number], [place] [address] 2546 Feb, [facility] [place] [facility] [address] [facility] [id number], [place] [address] 2546 Feb, [facility] [place] [facility] [address] [facility] [id number], [place] [address] 2545 30 Jan, 2015 [facility] [place] [facility] [address] [facility] [id number], [place] [address]- 5783 Jan, Nausea 787.02 and Neuropathy 355.9 [facility] [id number] [place] [address] 20759- 0137 Jan, [facility] [address] [id number], [place] [address]- 2546 Jan, [facility] [id number] [place] [address] 29662- 0779 Jan, [facility] [address] [id number] [id number] Jan, Dental examination V72.2 [facility] [id number] [place] [address] 01320- 6650 Jan, [facility] [id number] [place] [address] 30554- 9923 Dec, [facility] [id number] [place] [address] 93602- 6857 Dec, [facility] [id number] [place] [address] 08818- 8322 Dec, Neuropathy 355.9 [facility] [id number] [place] [address] 22364- 4498 November, [facility] [address], [place] [address]- 3664 November, [facility] [address], [place] [address]- 9200 November, [facility] [address], [place] [address]- 5236 Oct, [facility] [id number] [address] 1675 Oct, [facility] [id number] [place] [address] Sep, [facility] [id number], [place] [address] Sep, [facility] [place] [facility] [address] [id number] [place] [address] Sep, [facility] [place] [facility] [address] [facility] [id number] [place] [address] Sep, [facility] [place] [facility] [address] [facility] [id number] [place] [address] Sep, [facility] [place] [facility] [address] [facility] [id number] [place] [address] Sep, [facility] [place] [facility] [address] [facility] [id number] [place] [address] Sep, [facility] [place] [facility] [address] [facility] [id number] [place] [address] Sep, [facility] [place] [facility] [address] [id number] [address] Aug, 2014 [facility] [place] [facility] [address] [facility] [id number] [place] [address] Aug, 2014 [facility] [place] [facility] [address] [id number] [place] [address] Aug, 2014 [facility] [place] [facility] [address] [id number] [place] [address] Aug, 2014 [facility] [place] [facility] [address] [id number] [place] [address] Aug, 2014 [facility] [place] [facility] [address] [facility] [id number], [place] [address] Aug, 2014 [facility] [place] [facility] [address] [facility] [id number] [place] [address] Aug, 2014 [facility] [place] [facility] [address] [facility] [id number] [address] Aug, 2014 [facility] [place] [facility] [address] [id number] [place] [address] Jul, [facility] [place] [facility] [address] [id number] [place] [address] Jul, [facility] [place] [facility] [address] [id number] [place] [address] Jun, [facility] [place] [facility] [address] [id number] [place] [address] Jun, [facility] [place] [facility] [address] [id number] [place] [address] Jun, [facility] [place] [facility] [address] [id number] [place] [address] Jun, [facility] [place] [facility] [address] [id number] [place] [address] Jun, [facility] [place] [facility] [address] [id number] [place] [address] Jun, [facility] [place] [facility] [address] [id number] [place] [address] Jun, [facility] [place] [facility] [address] [id number] [place] [address] Jun, [facility] [place] [facility] [address] [id number] [place] [place] [address] Jun, [facility] [place] [facility] [address] [id number] [place] [address] Jun, [facility] [place] [facility] [address] [id number], [place] [address] Jun, [facility] [place] [facility] [address] [id number] [place] [address] May, [facility] [place] [facility] [address] [id number] [place] [address] 3936 May, [facility] [place] [facility] [address] [id number] [place] [address]176 May, [facility] [place] [facility] [address] [id number], [place] [address] May, [facility] [place] [facility] [address] [id number] [place] [address]79 May, [facility] [place] [facility] [address] [id number] [place] [address] May, [facility] [place] [facility] [address] [id number] [place] [address] May, [facility] [place] [facility] [address] [id number] [place] [address] 9831 May, [facility] [place] [facility] [address] [id number] [place] [address] 7260 May, [facility] [place] [facility] [address] [id number] [place] [address]- [address] Apr, [facility] [place] [facility] [address] [id number] [place] [address]- 4567 Apr, [facility] [place] [facility] [address] [id number] [place] [address]- 9775 Apr, [facility] [place] [facility] [address] [id number] [place] [address]- 0847 Apr, [facility] [place] [facility] [address] [facility] [id number] [place] [address]53 Apr, [facility] [place] [facility] [address] [id number] [place] [address]- 1547 Mar, [facility] [place] [facility] [address] [id number] [place] [address]- 0652 Mar, [facility] [place] [facility] [address] [id number] [place] [address]- 9770 Feb, [facility] [place] [facility] [address] [id number] [place] [address]- 8794 Feb, [facility] [place] [facility] [address] [facility] [id number] [place] [address]- 8009 Feb, [facility] [place] [facility] [address] [id number] [place] [address]- [address] Feb, [facility] [place] [facility] [address] [id number] [facility] [place] [address] Feb, [facility] [place] [facility] [address] [id number] [place] [address]- 5766 Feb, [facility] [place] [facility] [address] [id number] [place] [address] 2970 Jan, [facility] [place] [facility] [address] [id number] [place] [address]- 4048 Jan, [facility] [place] [facility] [address] [id number] [place] [address]- 5509 Jan, [facility] [place] [facility] [address] [id number] [place] [address]- 0911 Jan, [facility] [place] [facility] [address] [id number] [place] [address]- 3235 Jan, [facility] [place] [facility] [address] [id number] [place] [address]- 4532 Jan, [facility] [place] [facility] [address] [id number] [place] [address]- 4664 Jan, [facility] [place] [facility] [address] [id number] [place] [address]- 1717 Jan, [facility] [place] [facility] [address] [id number] [place] [address]- 3877 Jan, [facility] [place] [facility] [address] [id number] [place] [address]- 9859 Jan, [facility] [place] [facility] [address] [id number] [place] [address]- 1086 Jan, [facility] [place] [facility] [address] [id number] [place] [address]- 9496 Dec, [facility] [place] [facility] [address] [id number] [place] [address]- 4878 Dec, [facility] [place] [facility] [address] [id number] [place] [address]- 8305 Dec, [facility] [place] [facility] [address] [id number] [place] [address]- 2058 Dec, [facility] [place] [facility] [address] [id number] [place] [address]- 6725 Dec, [facility] [place] [facility] [address] [id number] [place] [address]- 8700 Dec, [facility] [place] [facility] [address] [id number] [place] [address]- 7842 November, [facility] [place] [facility] [address] [id number] [place] [address]- 6909 November, [facility] [place] [facility] [address] [id number] [place] [address]- 7841 November, [facility] [place] [facility] [address] [id number] [place] [address]- 2835 November, [facility] [place] [facility] [address] [id number] [place] [address]- 9947 November, [facility] [place] [facility] [address] [id number] [place] [address]- 5131 November, [facility] [place] [facility] [address] [id number] [place] [address]- 2262 Oct, [facility] [place] [facility] [address] [id number] [place] [address]- 5590 Oct, [facility] [place] [facility] [address] [id number] [place] [address] 1980 Oct, [facility] [place] [facility] [address] [id number] [place] [address]- 0650 Oct, [facility] [place] [facility] [address] [id number] [place] [address]- 2744 Sep, [facility] [place] [facility] [address] [id number] [place] [address]- 3778 Sep, [facility] [address] [id number] [place] [address] 9219 Sep, [facility] [address] [id number] [place] [address] Sep, [facility] [address] [id number] [place] [address]- 1372 Sep, [facility] [address] [id number] [place] [address]- 6774 Aug, [facility] [address] [id number] [place] [address]- 0172 Aug, [facility] [address] [id number] [place] [address]- 5401 Aug, [facility] [address] [id number] [place] [address]- 1104 Aug, [facility] [address] [facility] [id number] [place] [address] 48[address] Aug, [facility] [place] [id number] May, [facility] [address] [id number] [place] [address] 2549 May, [facility] [address] [id number] [place] [address]- 8285 May, [facility] [address] [id number], [place] [address]- 3538 May, [facility] [address] [id number] [place] [address]- 0120 May, [facility] [address] [id number] [place] [address]- 5189 Apr, [facility] [address] [id number] [place] [address]- 5524 Apr, [facility] [place] [facility] [address] [id number] [place] [address]- 8571 Apr, [facility] [place] [facility] [address] [id number] [place] [address]- 6406 Apr, [facility] [place] [facility] [address] [id number] [place] [address] 2546 Apr, [facility] [place] [facility] [address] [id number] [place] [address]- 4166 Apr, [facility] [place] [facility] [address] [id number] [place] [address]- 4238 Apr, [facility] [place] [facility] [address] [id number] [place] [address]- 1266 28 Mar, 2013 [facility] [place] [facility] [address] [id number] [place] [address]- 5530 Mar, [facility] [place] [facility] [address] [id number] [place] [address]- 3250 24 Mar, 2013 [facility] [place] [facility] [address] [id number] [place] [address]- 7848 16 Mar, 2013 [facility] [place] [facility] [address] [id number] [place] [address]- 5342 12 Mar, 2013 [facility] [place] [facility] [address] [id number] [place] [address]- 7235 Mar, [facility] [place] [facility] [address] [id number] [place] [address]- 1024 Feb, [facility] [place] [facility] [address] [id number] [place] [address] 2544 Feb, [facility] [place] [facility] [address] [id number] [place] [address] 2544 Feb, [facility] [place] [facility] [address] [id number] [place] [address] 2547 Feb, [facility] [place] [facility] [address] [id number] [place] [address]- 8156 Feb, [facility] [address] [id number] [place] [address]- 9409 Feb, [facility] [place] [facility] [address] [id number] [place] [address]- 3405 Jan, [facility] [place] [facility] [address] [id number] [place] [address]- 7016 Dec, [facility] [place] [facility] [address] [id number] [place] [address]- 2138 Dec, [facility] [place] [facility] [address] [id number] [place] [address]- 0697 Dec, [facility] [place] [facility] [address] [id number] [place] [address]- 7353 Dec, [facility] [place] [facility] [address] [id number] [place] [address]- 6523 Dec, [facility] [place] [facility] [address] [id number], [place] [address]- 3288 Dec, [facility] [place] [facility] [address] [id number] [place] [address]- 0116 Dec, [facility] [place] [facility] [address] [id number] [place] [address]- 9374 Dec, [facility] [place] [facility] [address] [id number], [place] [address]- 5925 Dec, [facility] [place] [facility] [address] [id number], [place] [address]- 1075 November, [facility] [place] [facility] [address] [id number] [place] [address]- 3274 November, [facility] [place] [facility] [address] [id number], [place] [address]- 5131 Oct, [facility] [place] [facility] [address] [id number] [place] [address]- 8533 Sep, [facility] [place] [facility] [id number], [place] [address]- [address]198 20 Sep, 2012 [facility] [id number], [place] [address]- [address]689 15 Sep, 2012 [facility] [id number], [place] [address]- 9996 Sep, [facility] [id number], [place] [address]- 5719 Aug, [facility] [id number], [place] [address]- 7503 Aug, [facility] [id number] [place] [address]- 1189 Jul, [facility] [address] [id number], [place] [address]- 3510 Jul, [facility] [id number], [place] [address]- 6075 Jul, [facility] [id number], [place] [address]- 9062 Sep, [facility] [id number], [place] [address]- 9374 17 Sep, 2011 [facility] [id number], [place] [address]- 8762 10 Sep, 2011 IMMUNIZATIONS No Known Immunizations SOCIAL HISTORY Never Assessed REASON FOR VISIT Blood pressure check-Oneyda LIRA PLAN OF CARE VITAL SIGNS Height 67 in 2017-06-22 Blood pressure systolic 138 mmHg 2017-06-22 Blood pressure diastolic 90 mmHg 2017-06-22 MEDICATIONS Unknown Medications RESULTS No Results PROCEDURES [...]
--- OUTSIDE RECORDS SUMMARY | 2018-06-09 17:47 | XMS REPORT ---
Author Author WESTLEY REAL Organization [facility] Address [address] [place] [address] Care Team Providers Care Dock Pumper Name Role Phone WESTLEY REAL Unavailable PROBLEMS Type Condition ICD9-CM Code GNU82-RL Code Onset Dates Condition Status SNOMED Code Problem Abdominal pain, left lower quadrant R10.32 Active 581172019 Problem Mood disorder F39 Active 10297854 Problem Hypertension, benign I10 Active 53373807 Problem Chronic pain syndrome G89.4 Active 323636933 Problem Attention to urostomy Z43.6 Active 844373371 Problem Anxiety F41.9 Active 49919316 Problem Neuropathy G62.9 Active 704148458 Problem Malignant neoplasm of colon, unspecified part of colon C18.9 Active 047317629 Problem Polyneuropathy G62.9 Active 83197959 Problem Incontinence of feces, unspecified fecal incontinence type R15.9 Active 61221689 Problem Chronic fatigue, unspecified R53.82 Active 391341634 Problem Hydronephrosis with ureteral stricture, not elsewhere classified N13.1 Active 71251670 Problem Primary insomnia F51.01 Active 965899123 Problem 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 206161579 ALLERGIES Substance Reaction Event Type Date Status Morphine Unknown Drug Allergy Jun, Active Codeine Unknown Drug Allergy Jun, Active ENCOUNTERS Encounter Location Date Diagnosis [facility] [id number], [place] [address] Dec, [facility] [address], [place] [address] November, Polyneuropathy G62.9 [facility] [id number], [place] [address] November, Medicare annual wellness visit, initial Z00.00 [facility] [id number] [place] [address] 85988- 7161 November, Mood disorder F39 [facility] [id number] [place] [address] 30222- 2467 Oct, Polyneuropathy G62.9 [facility] [id number] [place] [address] 18642- 1129 Oct, [facility] [id number] [place] [address] 51381- 0442 Oct, [facility] [id number] [place] [address] 91625- 1321 Oct, Mood disorder F39 ; Attention to urostomy Z43.6 ; Chronic pain syndrome G89.4 and Polyneuropathy G62.9 [facility] [id number] [place] [address] 30351- 5336 Sep, Polyneuropathy G62.9 [facility] [id number] [place] [address] 06957- 7998 Sep, [facility] [id number] [place] [address] 83680- 7555 Sep, Polyneuropathy G62.9 [facility] [id number] [place] [address] 92768- 0269 Aug, Polyneuropathy G62.9 [facility] [id number] [place] [address] 63885- 7527 Aug, Malignant neoplasm of colon, unspecified part of colon C18.9 and Polyneuropathy G62.9 [facility] [id number] [place] [address] 71646- 2189 Aug, Neuropathy G62.9 and Polyneuropathy G62.9 [facility] [id number] [place] [address] 84108- 9138 Jul, Encounter for drug screening Z02.83 [facility] [id number] [place] [address] 94695- 0488 Jul, Polyneuropathy G62.9 [facility] [address], [place] [address] 8092 Jul, [facility] [id number] [place] [address] 36868- 1973 Jul, Neuropathy G62.9 and Anxiety F41.9 [facility] [id number] [place] [address] 80421- 1993 Jul, [facility] [id number] [place] [address] 74913- 0395 Jul, [facility] [id number] [place] [address] 45891- 9627 Jul, [facility] [id number] [place] [address] 02040- 5837 Jul, Polyneuropathy G62.9 [facility] [id number] [place] [address] 24591- 2206 Jul, [facility] [id number] [place] [address] 70917- 2770 Jun, [facility] [id number] [place] [address] 13510- 3412 Jun, [facility] [id number] [place] [address] 15644- 7191 Jun, [facility] [id number] [place] [address] Jun, Encounter for dental examination Z01.20 [facility] [id number] [place] [address] 67534- 9449 Jun, Polyneuropathy G62.9 and Anxiety F41.9 [facility] [id number] [place] [address] 39492- 7679 Jun, [facility] [id number] [place] [address] May, Dental examination Z01.20 [facility] [id number] [place] [address] 21720- 9486 May, Polyneuropathy G62.9 [facility] [id number] [place] [address] 05230- 7869 Apr, Polyneuropathy G62.9 [facility] [address] 79266- 7310 Apr, Polyneuropathy G62.9 [facility] [address] 14890- 0131 Apr, Hypertension, benign I10 ; Polyneuropathy G62.9 and Anxiety F41.9 [facility] [address] [address]- 6725 Apr, Primary insomnia F51.01 and Polyneuropathy G62.9 [facility] [address] 58654- 8421 Apr, Primary insomnia F51.01 and Polyneuropathy G62.9 [facility] [address] 61981- 2566 Mar, Primary insomnia F51.01 [facility] [id number] [place] [address] 30071- 7851 Mar, [facility] [address] 85382- 6868 Mar, Polyneuropathy G62.9 [facility] [id number] [place] [address] 13791- 9075 Feb, Primary insomnia F51.01 [facility] [address] 27823- 4214 Feb, [facility] [id number] [place] [address] 37456- 9902 Feb, [facility] [address] 12775- 5402 Feb, Polyneuropathy G62.9 [facility] [address], [place] [address] 9881 Feb, Primary insomnia F51.01 [facility] [address], [place] [address] 2154 Jan, [facility] [id number] [place] [address] 34607- 8349 Jan, [facility] [id number] [place] [address] 28204- 1143 Dec, [facility] [id number] [place] [address] 42977- 8932 Dec, Primary insomnia F51.01 [facility] [id number] [place] [address] 06419- 8732 Dec, Primary insomnia F51.01 [facility] [id number] [place] [address] 61631- 6753 Dec, [facility] [id number] [place] [address] 38536- 7721 Dec, [facility] [id number] [place] [address] 80746- 1961 Dec, [facility] [id number] [place] [address] 71361- 3497 Dec, [facility] [address], [place] [address] 5888 November, Primary insomnia F51.01 and Polyneuropathy G62.9 [facility] [address], [place] [address]- 0559 November, [facility] [address], [place] [address]- 0686 November, Abdominal pain, left lower quadrant R10.32 [facility] [id number] [place] [address] 71561- 2546 November, [facility] [id number] [place] [address] 52412- 2861 Oct, [facility] [id number] [place] [address] 81254- 7656 Oct, Abdominal pain, left lower quadrant R10.32 ; 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 and Neuropathy G62.9 [facility] [id number] [place] [address] 27723- 0210 Oct, [facility] [id number] [place] [address] 56862- 1278 Sep, [facility] [id number] [place] [address] [id number] Sep, [facility] [id number] [place] [address] 03606- 0582 Sep, [facility] [id number] [place] [address] 10109- 9478 Aug, [facility] [id number] [place] [address] 58076- 5454 Aug, [facility] [id number] [place] [address] 81440- 5782 Aug, Abdominal pain, left lower quadrant R10.32 ; Neuropathy G62.9 and Anxiety F41.9 [facility] [address] [place] [address] Jul, [facility] [address], [place] [address]- 6592 Jul, [facility] [id number] [place] [address] 83539 -2925 Jul, [facility] [id number] [place] [address] 623121- 0241 Jul, [facility] [id number] [place] [address] 72239- 1606 Jul, [facility] [address] [facility] [id number], [place] [address]- 5451 Jun, [facility] [address] [facility] [id number], [place] [address]- 1896 May, [facility] [address] [facility] [id number] 5286 May, [facility] [address] [facility] [id number] [place] [address] 75859- 4335 Apr, [facility] [address] [facility] [id number], [place] [address]- 8464 Apr, Muscle spasms of both lower extremities M62.838 and Cellulitis, unspecified cellulitis site L03.90 [facility] [address], [place] [address]- 0520 Apr, [facility] [address] [facility] [id number] [place] [address] 52720- 1964 23 Mar, 2016 Generalized abdominal pain R10.84 [facility] [address] [facility] [id number], [place] [address]- 2146 20 Mar, 2016 [facility] [id number], [place] [address]- 8455 14 Mar, 2016 [facility] [address] [facility] [id number], [place] [address]- 4724 14 Mar, 2015 [facility] [address] [facility] [id number], [place] [address]- 4105 13 Mar, 2015 [facility] [address] [facility] [id number], [place] [address]- 2544 12 Mar, 2015 [facility] [address] [facility] [id number], [place] [address]- 9067 09 Mar, 2015 [facility] [address] [facility] [id number], [place] [address]- 7285 06 Mar, 2015 [facility] [address] [facility] [id number], [place] [address]- 7840 Feb, Other specified diseases of anus and rectum K62.89 [facility] [id number] [address]- 0566 Feb, [facility] [id number] [place] [address] 47250 2546 Feb, Dizziness R42 [facility] [id number] [place] [address] 63530- 8426 Feb, [facility] [id number] [place] [address] 68920- 8750 Jan, Polyneuropathy G62.9 [facility] [id number] [place] [address] 93487- 7133 Jan, Other specified diseases of anus and rectum K62.89 [facility] [id number] [place] [address] 75024- 2060 Jan, [facility] [id number] [place] [address] 42548 -8798 Jan, [facility] [id number] [place] [address] 27321- 8138 Jan, [facility] [address], [place] [address]- 4098 Jan, Dizziness R42 [facility] [address], [place] [address]- 7578 Dec, [facility] [address], [place] [address] 2549 Dec, [facility] [id number] [place] [address] 84614- 7934 Dec, [facility] [address], [place] [address]- 1036 Dec, Dizziness R42 [facility] [address], [place] [address]- 6992 November, [facility] [address], [place] [address]- 4160 Oct, [facility] [id number] [place] [address] 61406- 5710 Oct, [facility] [id number] [place] [address] 38041- 2198 Oct, [facility] [id number] [place] [address] 21855- 7537 Oct, [facility] [id number] [place] [address] 50663- 0053 Sep, [facility] [id number] [place] [address] 71173- 4249 Sep, Primary insomnia F51.01 [facility] [id number] [place] [address] 55623- 4469 Sep, Primary insomnia F51.01 [facility] [id number] [place] [address] 55446- 8450 Sep, [facility] [id number] [place] [address] 67570- 4482 Aug, [facility] [id number] [place] [address] 11184- 4721 Aug, [facility] [id number] [place] [address] 61702- 6975 Aug, Primary insomnia F51.01 ; Mood disorder F39 ; Nausea and vomiting, unspecified intactability, vomiting of unspecified type R11.2 and Diarrhea R19.7 [facility] [id number] [place] [address] 02827- 2372 Aug, [facility] [id number] [place] [address] 96415- 6470 05 Aug, 2015 Folliculitis L73.9 [facility] [id number] [place] [address] 46180- 3100 Aug, [facility] [id number] [place] [address] 37698- 9216 Aug, [facility] [id number] [place] [address] 45281- 2561 Jul, Folliculitis L73.9 [facility] [id number] [place] [address] 67034- 8510 Jul, [facility] [id number] [place] [address] 69028- 7097 Jun, Folliculitis L73.9 [address] [id number] [place] [address] 56607- 1460 Jun, [facility] [id number] [place] [address] 71085- 2745 May, Polyneuropathy G62.9 [facility] [id number] [place] [address] 07031- 9527 May, Other specified diseases of anus and rectum K62.89 [place] [id number] [place] [address] 04093- 6904 May, [facility] [id number] [place] [address] 72436- 4718 May, Primary insomnia F51.01 [place] [id number] [place] [address] 92721- 3066 May, [facility] [id number] [place] [address] 20966- 2036 May, [facility] [id number] [place] [address] 83749- 0637 Apr, Other specified diseases of anus and rectum K62.89 ; Chronic fatigue R53.82 ; Urinary tract infection, site not specified N39.0 and Enterococcus as the cause of diseases classified elsewhere B95.2 [place] [id number] [place] [address] 08611- 9643 16 Apr, 2015 [facility] [address] [facility] [id number], [place] [address]- 4253 15 Apr, 2015 [facility] [id number] [place] [address] 89751- 9061 14 Apr, 2015 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 [facility] [id number] [place] [address] 73478- 5686 05 Apr, 2015 [facility] [address] [facility] [id number] [place] [address] 29153- 5474 26 Mar, 2014 [facility] [id number] [place] [address] 45731- 9409 23 Mar, 2014 [facility] [id number] [place] [address] 85459- 8992 17 Mar, 2014 [facility] [id number] [place] [address] 35296- 8045 14 Mar, 2015 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 [facility] [address], [place] [address]- 6983 12 Mar, 2015 [facility] [id number] [place] [address] 46285- 8795 11 Mar, 2015 [facility] [address], [place] [address]- 6963 11 Mar, 2015 [facility] [id number], [place] [address]- 4032 10 Mar, 2015 [facility] [id number], [place] [address]- 4013 Feb, [facility] [id number], [place] [address]- 9591 14 Feb, 2015 [facility] [id number], [place] [address]- 3277 Feb, [facility] [address], [place] [address]- 4611 Jan, [facility] [address] [facility] [id number], [place] [address] 2542 Jan, Nausea 787.02 and Neuropathy 355.9 [facility] [address] [facility] [id number], [place] [address] 2546 Jan, [facility] [id number] [place] [address] 28863- 2109 Jan, [facility] [address] [facility] [id number] [place] [address] 98217- 5177 Jan, [facility] [id number] [place] [address] [id number] Jan, Dental examination V72.2 [facility] [id number] [place] [address] [id number]- [id number] Jan, [facility] [id number] [place] [address] 35089- 4837 Dec, [facility] [address] [id number] [address] Dec, [facility] [address] [id number] [address] [address] Dec, Neuropathy 355.9 [facility] [id number] [address] November, [facility] [address] [id number], [place] [address] November, [facility] [address] [facility] [id number][place] [address] November, [facility] [address] [facility] [id number][place] [id number] [id number] Oct, [facility] [address] [facility] [id number], [place] [address] 13 Oct, 2014 [facility] [id number], [place] [address] Sep, [facility] [place] [facility] [address] [id number] [place] [address] Sep, [facility] [place] [facility] [address] [id number] [place] [address]- 3517 Sep, [facility] [place] [facility] [address] [facility] [id number] [place] [address]- 79[address] Sep, [facility] [place] [facility] [address] [id number] [place] [address]- 2593 Sep, [facility] [place] [facility] [address] [id number] [place] [address]- 8945 Sep, [facility] [place] [facility] [address] [facility] [id number] [place] [address]- 4109 Sep, [facility] [place] [facility] [address] [facility] [id number] [place] [address]- 0072 Sep, [facility] [place] [facility] [address] [facility] [id number], [place] [address] Aug, 2014 [facility] [place] [facility] [address] [facility] [id number] [place] [address]- 8852 Aug, 2014 [facility] [place] [facility] [address] [facility] [id number] [place] [address]- 7261 Aug, 2014 [facility] [place] [facility] [address] [facility] [id number], [place] [address] Aug, 2014 [facility] [place] [facility] [address] [facility] [id number], [place] [address] 7934 Aug, 2014 [facility] [place] [facility] [address] [facility] [id number] [place] [address]- 0609 Aug, 2014 [facility] [place] [facility] [address] [facility] [id number], [place] [address]- 115[address] Aug, 2014 [facility] [place] [facility] [address] [facility] [id number][place] [address] 02 Fe2014 [facility] [place] [facility] [address] [id number] [place] [address]- [address] Jul, [facility] [place] [facility] [address] [id number] [place] [address]- [address]35 Jul, [facility] [place] [facility] [address] [id number] [place] [address]- 0131 Jun, [facility] [place] [facility] [address] [id number] [place] [address]- 4536 Jun, [facility] [place] [facility] [address] [id number] [place] [address]- 6238 Jun, [facility] [place] [facility] [address] [id number] [place] [address]- 2049 Jun, [facility] [place] [facility] [address] [id number] [place] [address]- 2651 Jun, [facility] [place] [facility] [address] [id number] [place] [address]- 4339 Jun, [facility] [place] [facility] [address] [id number] [place] [address]- 8544 Jun, [facility] [place] [facility] [address] [id number] [place] [address]- 4202 Jun, [facility] [place] [facility] [address] [id number] [place] [address]- 3615 Jun, [facility] [place] [facility] [address] [id number] [place] [address]- 0440 Jun, [facility] [place] [facility] [address] [id number] [place] [address]- 2571 Jun, [facility] [place] [facility] [address] [id number] [place] [address] May, [facility] [place] [facility] [address] [id number] [place] [address] May, [facility] [place] [facility] [address] [id number] [place] [address] May, [facility] [place] [facility] [address] [id number] [place] [address] May, [facility] [place] [facility] [address] [id number] [place] [address] May, [facility] [place] [facility] [address] [id number] [place] [address] May, [facility] [place] [facility] [address] [id number] [place] [address] 5783 May, [facility] [place] [facility] [address] [id number] [place] [address] 5266 May, [facility] [place] [facility] [address] [id number] [place] [address] 2548 May, [facility] [place] [facility] [address] [id number] [place] [address] 8645 Apr, [facility] [place] [facility] [address] [id number] [place] [address] 9128 Apr, [facility] [place] [facility] [address] [id number] [place] [address]100 Apr, [facility] [place] [facility] [address] [id number] [place] [address] 68[address] Apr, [facility] [place] [facility] [address] [id number] [place] [address] 1363 Apr, [facility] [place] [facility] [address] [id number] [place] [address] 6[address] Mar, [facility] [place] [facility] [address] [id number] [place] [address] 0600 Mar, [facility] [place] [facility] [address] [id number] [place] [address]- 7313 Feb, [facility] [place] [facility] [address] [id number] [place] [address]- 1470 Feb, [facility] [place] [facility] [address] [id number] [place] [address] 5990 Feb, [facility] [place] [facility] [address] [id number] [place] [address] 36[address] Feb, [facility] [place] [facility] [address] [id number] [place] [address] Feb, [facility] [place] [facility] [address] [id number] [place] [address] 2880 Feb, [facility] [place] [facility] [address] [id number] [place] [address]248 Jan, [facility] [place] [facility] [address] [id number] [place] [address]- 6620 Jan, [facility] [place] [facility] [address] [id number] [place] [address]- 0263 Jan, [facility] [place] [facility] [address] [id number] [place] [address] 4170 Jan, [facility] [place] [facility] [address] [id number] [place] [address] Jan, [facility] [place] [facility] [address] [id number] [place] [address] 5530 Jan, [facility] [place] [facility] [address] [id number] [place] [address]- 1471 Jan, [facility] [place] [facility] [address] [id number] [place] [address] 6677 Jan, [facility] [place] [facility] [address] [id number] [place] [address] 9945 Jan, [facility] [place] [facility] [address] [id number] [place] [address]- 7482 Jan, [facility] [place] [facility] [address] [id number] [place] [address]- 4969 Jan, [facility] [place] [facility] [address] [id number] [place] [address] 9906 Dec, [facility] [place] [facility] [address] [id number] [place] [address] 2583 Dec, [facility] [place] [facility] [address] [id number] [place] [address] 9682 Dec, [facility] [place] [facility] [address] [id number] [place] [address] 9596 Dec, [facility] [place] [facility] [address] [id number] [place] [address]- 3036 Dec, [facility] [place] [facility] [address] [id number] [place] [address] 2720 Dec, [facility] [place] [facility] [address] [id number] [place] [address] 5535 November, [facility] [place] [facility] [address] [id number] [place] [address] 1487 November, [facility] [place] [facility] [address] [id number] [place] [address]- 2078 November, [facility] [place] [facility] [address] [id number] [place] [address] 8932 November, [facility] [place] [facility] [address] [id number] [place] [address]- 2395 November, [facility] [place] [facility] [address] [id number] [place] [address]- 3909 November, [facility] [place] [facility] [address] [id number] [place] [address] 3824 Oct, [facility] [place] [facility] [address] [id number] [place] [address] 6675 Oct, [facility] [place] [facility] [address] [id number] [place] [address]- 6236 Oct, [facility] [place] [facility] [address] [id number] [place] [address]- 8308 Oct, [facility] [place] [facility] [address] [id number] [place] [address]- 9918 Sep, [facility] [address] [id number] [place] [address] 2828 Sep, [facility] [address] [id number] [place] [address]- 1896 Sep, [facility] [address] [id number] [place] [address]- 9007 Sep, [facility] [address] [id number] [place] [address] 2136 Sep, [facility] [address] [id number] [place] [address] 4157 Aug, [facility] [address] [id number] [place] [address] 5007 Aug, [facility] [address] [id number] [place] [address]- 1512 Aug, [facility] [address] [id number] [place] [address]- 4778 Aug, [facility] [address] [id number] [place] [address]- 9550 Aug, [facility] [address] [place] [id number] May, [facility] [address] [id number], [place] [address] 2482 May, [facility] [address] [id number], [place] [address] 7159 May, [facility] [address] [id number] [place] [address]- 0601 May, [facility] [address] [id number] [place] [address]- 0230 May, [facility] [address] [id number] [place] [address]- 5637 Apr, [facility] [place] [facility] [address] [id number] [place] [address]- 3403 Apr, [facility] [address] [id number] [place] [address]- 1463 Apr, [facility] [place] [facility] [address] [id number] [place] [address]- 4739 Apr, [facility] [address] [id number] [place] [address]- 5793 Apr, [facility] [place] [facility] [address] [id number] [place] [address]- 6649 Apr, [facility] [address] [id number] [place] 2013 Apr, [facility] [place] [facility] [address] [id number] [place] [address]- 1425 28 Mar, 2013 [facility] [place] [facility] [address] [id number] [place] [address]- 2422 25 Mar, 2012 [facility] [address] [id number] [place] [address]- 2138 24 Mar, 2013 [facility] [place] [facility] [address] [id number] [place] [address]- 9206 16 Mar, 2013 [facility] [address] [id number] [place] [address]- 5624 12 Mar, 2013 [facility] [place] [facility] [address] [id number] [place] [address]- 2544 06 Mar, 2012 [facility] [place] [facility] [address] [id number] [place] [address]- 0878 Feb, [facility] [place] [facility] [address] [id number] [place] [address] Feb, [facility] [place] [facility] [address] [id number] [place] [address]- 3447 Feb, [facility] [place] [facility] [address] [id number] [place] [address] Feb, [facility] [place] [facility] [address] [id number] [place] [address]- 1977 Feb, [facility] [place] [facility] [address] [id number] [place] [address]- 9105 Feb, [facility] [place] [facility] [address] [id number] [place] [address]- 0681 Jan, [facility] [place] [facility] [address] [id number] [place] [address]- 1036 Dec, [facility] [place] [facility] [address] [id number] [place] [address]- 0751 Dec, [facility] [place] [facility] [address] [id number] [place] [address]- 9438 Dec, [facility] [place] [facility] [address] [id number] [place] [address]- 6245 Dec, [facility] [place] [facility] [address] [id number] [place] [address]- 0125 Dec, [facility] [place] [facility] [address] [id number] [place] [address]- 9851 Dec, [facility] [place] [facility] [address] [id number] [place] [address]- 7782 Dec, [facility] [place] [facility] [address] [id number] [place] [address]- 1458 Dec, [facility] [place] [facility] [address] [id number] [place] [address]- 7078 Dec, [facility] [place] [facility] [address] [id number] [place] [address]- 9223 November, [facility] [place] [facility] [address] [id number] [place] [address]- 0572 November, [facility] [place] [facility] [address] [id number] [place] [address]- 3252 Oct, [facility] [place] [facility] [address] [id number], [place] [address]- 1709 Sep, [facility] [id number], [place] [address] 8121 Sep, [facility] [id number], [place] [address]- 1646 15 Sep, 2012 [facility] [id number], [place] [address]- 7261 Sep, [facility] [address] [id number] [address]- 0159 Aug, [facility] [id number] [place] [address]- 7176 Aug, [facility] [id number] [place] [address]- 5500 Jul, [facility] [id number] [place] [address]- 8662 Jul, [facility] [id number], [place] [address]- 3192 Jul, [facility] [id number], [place] [address]- 1920 Sep, [facility] [id number], [place] [address]- 2763 Sep, [facility] [id number], [place] [address]- 0401 Sep, IMMUNIZATIONS No Known Immunizations SOCIAL HISTORY Never Assessed REASON FOR VISIT TE PLAN OF CARE Activity Details Follow Up No charge bp to high Reason: VITAL SIGNS Height 67 in 2017-06-22 Blood pressure systolic 192 mmHg 2017-06-22 Blood pressure diastolic 127, 179 mmHg 2017-06-22 MEDICATIONS Medication Instructions Dosage Frequency Start Date End Date Duration Status Hydrocodone Bitartrate Unknown Gabapentin 600 MG Orally 3 times a day 2 tablet 8h 30 days Unknown Zoloft 100 mg Orally Once a day 1 tablet 24h 30 Unknown Lyrica 150 MG Orally 3 times a day 1 capsule 8h Feb, Unknown Promethazine HCl 12.5 MG Orally every 6 hrs 1 tablet as needed 6h Unknown Percocet 10-325 MG Orally every 4 hrs 1 tablet 4h Jun, Unknown Acyclovir 5 % Externally Five times a day 1 application to affected area Dec, Unknown Wheelchair 1 as directed Dec, Unknown Oxycodone HCl 30 MG Orally 2 times a day 1 tablet as needed 12h Jun, Unknown RESULTS No Results PROCEDURES Procedure Date Ordered Result Body Site Dental no charge Jun 22, 2017 INSTRUCTIONS MEDICATIONS ADMINISTERED No Known [...]
--- OUTSIDE RECORDS SUMMARY | 2018-06-09 17:47 | XMS REPORT ---
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 474246483 Problem Incontinence of feces, unspecified fecal incontinence type R15.9 Active 44865315 Problem Chronic fatigue, unspecified R53.82 Active 092876247 Problem Hydronephrosis with ureteral stricture, not elsewhere classified N13.1 Active 95932831 Problem Malignant neoplasm of colon, unspecified part of colon C18.9 Active 650174825 Problem Polyneuropathy G62.9 Active 67954477 Problem Mood disorder F39 Active 60618432 Problem Hypertension, benign I10 Active 49571583 Problem Anxiety F41.9 Active 92010970 Problem Neuropathy G62.9 Active 967766484 ALLERGIES No Information ENCOUNTERS Encounter Location Date Diagnosis [facility] [id number] [address] November, Medicare annual wellness visit, initial Z00.00 [facility] [id number] [address] Oct, [facility] [id number] [address] Sep, Polyneuropathy G62.9 [facility] [id number] [place] [address] 07144- 8012 Sep, [facility] [id number] [address] Sep, Polyneuropathy G62.9 [facility] [id number] [place] [address] 40878- 2547 Aug, Polyneuropathy G62.9 [facility] [id number] [place] [address] 33760- 6196 Aug, Malignant neoplasm of colon, unspecified part of colon C18.9 and Polyneuropathy G62.9 [facility] [address] [address]- [address] Aug, Neuropathy G62.9 and Polyneuropathy G62.9 [facility] [id number] [place] [address] 29337- 2211 Jul, Encounter for drug screening Z02.83 [facility] [id number] [place] [address] 12778- 3187 Jul, Polyneuropathy G62.9 [facility] [id number] [place] [address] 32678- 2165 Jul, [facility] [id number] [place] [address] 67745- 9056 Jul, Neuropathy G62.9 and Anxiety F41.9 [facility] [id number] [place] [address] 64995- 1037 Jul, [facility] [id number] [place] [address] 34194- 3292 Jul, [facility] [id number] [place] [address] 11313- 5910 Jul, [facility] [id number] [place] [address] 23949- 2359 Jul, Polyneuropathy G62.9 [facility] [id number] [place] [address] 33811- 3863 Jul, [facility] [id number] [place] [address] 85323- 7342 Jun, [facility] [address] [address] 0[address] Jun, [facility] [id number] [place] [address] 80282- 4088 Jun, [facility] [id number], [place] [address] 07 Jun, 2017 Encounter for dental examination Z01.20 [facility] [id number] [place] [address] 55069- 1040 Jun, Polyneuropathy G62.9 and Anxiety F41.9 [place] [facility] [id number] [place] [address] 14787- 2266 Jun, [facility] [id number], [place] [address] May, Dental examination Z01.20 [facility] [id number] [place] [address] 08577- 0940 May, Polyneuropathy G62.9 [facility] [id number] [place] [address] 32003- 6159 Apr, Polyneuropathy G62.9 [facility] [facility] [id number] [place] [address] 76708- 2533 Apr, Polyneuropathy G62.9 [facility] [id number] [place] [address] 81456- 9267 Apr, Hypertension, benign I10 ; Polyneuropathy G62.9 and Anxiety F41.9 [facility] [id number] [place] [address] 82342- 5832 Apr, Primary insomnia F51.01 and Polyneuropathy G62.9 [facility] [id number] [place] [address] 12731- 7017 Apr, Primary insomnia F51.01 and Polyneuropathy G62.9 [facility] [id number] [place] [address] 54639- 2260 Mar, Primary insomnia F51.01 [facility] [address] [address] 0201 Mar, [facility] [id number] [place] [address] 20953- 2251 Mar, Polyneuropathy G62.9 [facility] [id number] [place] [address] 69779- 7240 Feb, Primary insomnia F51.01 [facility] [id number] [place] [address] 79896- 1004 Feb, [facility] [id number] [place] [address] 98487- 1156 Feb, [facility] [id number] [place] [address] 97526- 2818 Feb, Polyneuropathy G62.9 [facility] [id number] [place] [address] 05914- 7685 Feb, Primary insomnia F51.01 [facility] [address] [address] 9133 Jan, [facility] [address] [id number] [address] 7836 Jan, [facility] [address] [address] 7106 Dec, [facility] [id number] [place] [address] 38591- 0687 Dec, Primary insomnia F51.01 [facility] [address] [address] 1453 Dec, Primary insomnia F51.01 [facility] [address] [address]- 3862 Dec, [facility] [address] [address]- 2430 Dec, [facility] [id number] [address]- 3469 Dec, [facility] [id number] [place] [address] 34832- 8795 Dec, [facility] [address] [address] 5141 November, Primary insomnia F51.01 and Polyneuropathy G62.9 [facility] [id number] [place] [address] 43038- 9776 November, [facility] [id number] [place] [address] 37647- 1097 November, Abdominal pain, left lower quadrant R10.32 [facility] [id number] [address]- 4455 November, [facility] [id number] [place] [address] 55949- 9280 Oct, [facility] [address] [address]- 2331 Oct, Abdominal pain, left lower quadrant R10.32 ; 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 and Neuropathy G62.9 [facility] [address] [address]- 2477 Oct, [facility] [id number] [address] 2541 Sep, [facility] [address] [id number] [address] Sep, [facility] [address] [address]- 5075 Sep, [facility] [id number] [address] [address] Aug, [facility] [address] [address]- 7546 Aug, [facility] [address] [address]- 4187 Aug, Abdominal pain, left lower quadrant R10.32 ; Neuropathy G62.9 and Anxiety F41.9 [facility] [address] [place] [address] Jul, [facility] [id number] [place] [address] 38270- 3491 Jul, [facility] [id number] [place] [address] 99963 -2404 Jul, [facility] [id number] [place] [address] 85131- 9629 Jul, [facility] [id number] [place] [address] 96333- 8695 Jul, [facility] [id number] [place] [address] 96906- 3239 Jun, [facility] [id number] [place] [address] 93174- 0200 May, [facility] [id number] [place] [address] 51935- 7105 May, [facility] [id number] [place] [address] 02313- 2497 Apr, [facility] [id number] [place] [address] 43705- 8402 Apr, Muscle spasms of both lower extremities M62.838 and Cellulitis, unspecified cellulitis site L03.90 [facility] [id number] [place] [address] 08540- 8986 Apr, [facility] [id number] [place] [address] 48100- 0662 Mar, Generalized abdominal pain R10.84 [facility] [id number] [place] [address] 04219- 0948 Mar, [facility] [address] [facility] [id number] [address]- 2883 14 Mar, 2015 [facility] [address] [facility] [id number] [place] [address]- 4900 14 Mar, 2015 [facility] [address] [facility] [id number] [place] [address]- 0789 13 Mar, 2015 [facility] [address] [facility] [id number] [place] [address], [place] [address]- 4390 12 Mar, 2016 [facility] [address] [facility] [id number] [place] [address]- 6269 09 Mar, 2016 [facility] [id number] [place] [address], [place] [address]- 3502 06 Mar, 2016 [facility] [address] [address]- 8454 17 Feb, 2016 Other specified diseases of anus and rectum K62.89 [facility] [id number] [address]- 9998 Feb, [facility] [id number] [place] [address] 89135- 9340 Feb, Dizziness R42 [facility] [address] [address]- 1232 Feb, [facility] [address] [address]- 3663 Jan, Polyneuropathy G62.9 [facility] [address] [address]- 5061 Jan, Other specified diseases of anus and rectum K62.89 [facility] [address] [address]- 4734 Jan, [facility] [id number] [address]9169 16 Jan, 2016 [facility] [id number] [address]- 6519 Jan, [facility] [address] [id number] [place] [address]- 5677 Jan, Dizziness R42 [facility] [address] [id number] [place] [address]- 7534 Dec, [facility] [address] [id number] [place] [address]- 1832 Dec, [facility] [address] [id number] [place] [address]- 6463 Dec, [facility] [id number] [place] [address], [place] [address]- 5291 Dec, Dizziness R42 [facility] [address] [facility] [id number] [place] [address]- 8841 November, [facility] [address] [facility] [id number] [place] [address]- 2628 Oct, [facility] [address] [id number] [place] [address]- 3368 Oct, [facility] [address] [facility] [id number] [place] [address]- 1934 Oct, [facility] [address] [facility] [id number] [place] [address]- 1709 Oct, [facility] [address] [facility] [id number] [place] [address]- 5052 Sep, [facility] [address] [facility] [id number] [place] [address]- 0507 Sep, Primary insomnia F51.01 [facility] [address] [facility] [id number] [place] 4284 Sep, Primary insomnia F51.01 [facility] [address] [facility] [id number] [place] [address]- 7999 Sep, [facility] [address] [address]- 0597 Aug, [facility] [id number] [place] [address] 87073- 6278 Aug, [facility] [id number] [place] [address] 07597- 4971 Aug, Primary insomnia F51.01 ; Mood disorder F39 ; Nausea and vomiting, unspecified intactability, vomiting of unspecified type R11.2 and Diarrhea R19.7 [facility] [id number] [place] [address] 01541- 5851 Aug, [facility] [address] 41499- 8311 Aug, Folliculitis L73.9 [facility] [id number] [place] [address] 21389- 1057 Aug, [facility] [address] 83240- 6199 Aug, [facility] [id number] [place] [address] 98355- 9550 Jul, Folliculitis L73.9 [facility] [id number] [place] [address] 08102- 3965 Jul, [facility] [id number] [place] [address] 98634- 4842 Jun, Folliculitis L73.9 [facility] [id number] [place] [address] 06749- 5677 Jun, [facility] [id number] [place] [address] 74891- 4905 May, Polyneuropathy G62.9 [facility] [id number] [place] [address] 20239- 0453 May, Other specified diseases of anus and rectum K62.89 [facility] [address] 05076- 1206 May, [facility] [address] [address]- 5986 May, Primary insomnia F51.01 [facility] [id number] [place] [address] 82055- 0146 May, [facility] [id number] [place] [address] 60181- 4564 May, [facility] [id number] [place] [address] 13041- 5092 Apr, Other specified diseases of anus and rectum K62.89 ; Chronic fatigue R53.82 ; Urinary tract infection, site not specified N39.0 and Enterococcus as the cause of diseases classified elsewhere B95.2 [facility] [id number] [place] [address] 12472- 5632 16 Apr, 2015 [facility] [id number] [place] [address] 52202- 2497 Apr, [facility] [id number] [place] [address] 03775- 2137 Apr, 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 [facility] [id number] [place] [address] 42738- 4286 05 Apr, 2015 [facility] [address] [address]- 5464 Mar, [facility] [id number] [place] [address] 83981- 1661 23 Mar, 2015 [facility] [address] [place] [address] 75156- 1053 17 Mar, 2015 [facility] [id number] [place] [address] 10227- 7534 14 Mar, 2015 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 [facility] [address] [address]- 7326 12 Mar, 2015 [facility] [address] [facility] [id number] [address]- 8073 11 Mar, 2015 [facility] [address] [facility] [id number] [place] [address]- 5085 Mar, [facility] [address] [facility] [id number] [address]- 4720 Mar, [facility] [address] [facility] [id number] [address]- 2991 Feb, [facility] [address] [facility] [id number] [place] [address]- 9365 Feb, [facility] [address] [facility] [id number] [place] [address] 34423- 6431 Feb, [facility] [address] [facility] [id number] [place] [address]- 4770 Jan, [facility] [id number] [place] [address] 32271- 8831 Jan, Nausea 787.02 and Neuropathy 355.9 [facility] [id number] [address]- 6963 Jan, [facility] [address] [address]- 0149 Jan, [facility] [address] [address]- 7347 Jan, [facility] [address] [id number] [id number] Jan, Dental examination V72.2 [facility] [address] [facility] [id number] [place] [address]- 9191 Jan, [facility] [address] [facility] [id number] [place] [address]- 0724 Dec, [facility] [place] [facility] [address] [id number] [address]- 8493 Dec, [facility] [address] [facility] [id number] [place] [address]- 9082 Dec, Neuropathy 355.9 [facility] [address] [id number] [place] [address]- 0036 November, [facility] [place] [facility] [address] [id number] [place] [address]- 5396 November, [facility] [address] [facility] [id number] [place] [address]- 9242 November, [facility] [place] [facility] [address] [id number] [place] [address]- 2599 Oct, [facility] [address] [facility] [id number] [place] [address]- 3225 Oct, [facility] [place] [facility] [address] [facility] [id number] [place] 8899 Sep, [facility] [place] [facility] [address] [id number] [address]- 9156 Sep, [facility] [address] [facility] [id number] [place] [address]- 6175 Sep, [facility] [place] [facility] [address] [id number] [address]- 1374 Sep, [facility] [address] [facility] [id number] [place] [address]- 9162 Sep, [facility] [place] [facility] [address] [facility] [id number] [place] [address]- 2733 Sep, [facility] [place] [facility] [address] [facility] [id number] [place] [address]- 1542 Sep, [facility] [place] [facility] [address] [facility] [id number] [place] [address]- 6437 Sep, [facility] [place] [facility] [address] [facility] [id number] [place] [address]- 0616 Aug, [facility] [place] [facility] [address] [facility] [id number] [place] [address]- 3088 Aug, [facility] [place] [facility] [address] [id number] [place] [address]- 1173 Aug, 2014 [facility] [place] [facility] [address] [id number] [place] [address]- 8964 Aug, 2014 [facility] [place] [facility] [address] [id number] [place] [address]- 4785 Aug, 2014 [facility] [place] [facility] [address] [id number] [place] [address] Aug, 2014 [facility] [place] [facility] [address] [id number] [place] [address] Aug, 2014 [facility] [place] [facility] [address] [id number] [place] [address] Aug, 2014 [facility] [place] [facility] [address] [id number] [place] [address] Jul, [facility] [place] [facility] [address] [id number] [place] [address] Jul, [facility] [place] [facility] [address] [id number] [place] [address] Jun, [facility] [place] [facility] [address] [id number] [place] [address] Jun, [facility] [place] [facility] [address] [id number] [place] [address] Jun, [facility] [place] [facility] [address] [id number] [place] [address] Jun, [facility] [place] [facility] [address] [id number] [place] [address] Jun, [facility] [place] [facility] [address] [id number] [place] [address] Jun, [facility] [place] [facility] [address] [id number] [place] Jun, [facility] [place] [facility] [address] [id number] [place] [address] Jun, [facility] [place] [facility] [address] [id number] [place] [address] Jun, [facility] [place] [facility] [address] [id number] [place] [address] Jun, [facility] [place] [facility] [address] [id number] [place] [address]- [address] Jun, [facility] [place] [facility] [address] [id number] [place] [address] May, [facility] [place] [facility] [address] [id number] [place] [address] May, [facility] [place] [facility] [address] [id number] [place] [address] May, [facility] [place] [facility] [address] [id number] [place] [address] May, [facility] [place] [facility] [address] [id number] [place] [address] May, [facility] [place] [facility] [address] [id number] [place] [address] May, [facility] [place] [facility] [address] [facility] [id number] [place] [address]- [address] May, [facility] [place] [facility] [address] [id number] [place] [address] May, [facility] [place] [facility] [address] [id number] [place] [address]- [address]698 May, [facility] [place] [facility] [address] [id number] [place] [address] Apr, [facility] [place] [facility] [address] [id number] [place] [address] Apr, [facility] [place] [facility] [address] [id number] [place] [address] Apr, [facility] [place] [facility] [address] [id number] [place] [address] Apr, [facility] [place] [facility] [address] [id number] [place] [address] Apr, [facility] [place] [facility] [address] [id number] [place] [address] Mar, [facility] [place] [facility] [address] [id number] [place] [address] Mar, [facility] [place] [facility] [address] [id number] [place] [address] Feb, [facility] [place] [facility] [address] [id number] [place] [address] Feb, [facility] [place] [facility] [address] [id number] [place] [address] Feb, [facility] [place] [facility] [address] [id number] [place] [address] Feb, [facility] [place] [facility] [address] [id number] [place] [address] Feb, [facility] [place] [facility] [address] [id number] [place] [address] Feb, [facility] [facility] [address] [id number] [place] [address] Jan, [facility] [place] [facility] [address] [id number] [place] [address] Jan, [facility] [place] [facility] [address] [id number] [place] [address] Jan, [facility] [place] [facility] [address] [id number] [place] [address] Jan, [facility] [place] [facility] [address] [id number] [place] [address] Jan, [facility] [place] [facility] [address] [id number] [place] [address] Jan, [facility] [place] [facility] [address] [id number] [place] [address] Jan, [facility] [place] [facility] [address] [id number] [place] [address] Jan, [facility] [place] [facility] [address] [id number] [place] [address] 39[address] Jan, [facility] [place] [facility] [address] [id number] [place] [address] Jan, [facility] [place] [facility] [address] [id number] [place] [address] Jan, [facility] [place] [facility] [address] [id number] [place] [address] Dec, [facility] [place] [facility] [address] [id number] [place] [address] Dec, [facility] [place] [facility] [address] [id number] [place] [address] Dec, [facility] [place] [facility] [address] [id number] [place] [address] Dec, [facility] [place] [facility] [address] [id number] [place] [address]- 74[address] Dec, [facility] [place] [facility] [address] [id number] [place] [address] 0968 Dec, [facility] [place] [facility] [address] [id number] [place] [address] November, [facility] [place] [facility] [address] [id number] [place] [address] November, [facility] [place] [address] [id number] [place] [address] November, [facility] [place] [facility] [address] [id number] [place] [address] 7940 November, [facility] [place] [facility] [address] [id number] [place] [address]- 36[address] November, [facility] [place] [address] [id number] [place] [address] November, [facility] [place] [address] [id number] [place] [address] Oct, [facility] [place] [facility] [address] [id number] [place] [address] Oct, [facility] [place] [address] [id number] [place] [address]- 1444 Oct, [facility] [place] [address] [id number] [place] [address]- 7922 Oct, [facility] [place] [facility] [address] [id number] [place] [address]- 78[address] Sep, [facility] [place] [address] [id number] [place] [address]- 3[address] Sep, [facility] [place] [address] [id number] [place] [address]- [address]362 Sep, [facility] [place] [address] [id number] [place] [address]- 67[address] Sep, [facility] [place] [address] [id number] [place] [address]- 9739 Sep, [facility] [place] [address] [id number] [place] [address] 8868 Aug, [facility] [address] [id number] [place] [address] Aug, [facility] [address] [id number] [place] [address]- 1653 Aug, [facility] [address] [id number] [place] [address]391 Aug, [facility] [address] [id number] [place] [address] 14 Aug, 2013 [facility] [address] [place] [id number] May, [facility] [address] [id number] [place] [address] May, [facility] [address] [id number] [place] [address] 9209 May, [facility] [address] [id number] [place] [address] May, [facility] [address] [id number] [place] [address]- 1207 May, [facility] [address] [id number] [place] [address]- [address] Apr, [facility] [address] [id number] [place] [address]- [address]350 Apr, [facility] [address] [id number] [place] [address] Apr, [facility] [address] [id number] [place] [address]- 36[address] Apr, [facility] [address] [id number] [place] [address] Apr, [facility] [address] [id number] [place] [address]- [address] Apr, [facility] [address] [id number] [place] [address]- [address] Apr, [facility] [address] [id number] [place] [address]- [address]671 Mar, [facility] [address] [id number] [place] [address] Mar, [facility] [address] [id number] [place] [address]- 8729 Mar, [facility] [address] [id number] [place] [address]- [address] 16 Mar, 2013 [facility] [address] [id number] [place] [address]- [address] 12 Mar, 2013 [facility] [address] [id number] [place] [address]- [address] Mar, [facility] [address] [id number] [place] [address]- 2062 Feb, [facility] [address] [id number] [place] [address]- 4029 Feb, [facility] [address] [id number] [place] [address]- 4012 Feb, [facility] [address] [id number] [place] [address]- 4643 Feb, [facility] [address] [id number] [place] [address]- 6638 Feb, [facility] [address] [id number] [place] [address]- 0644 Feb, [facility] [address] [id number] [place] [address]- 1721 Jan, [facility] [address] [id number] [place] [address]- 8456 Dec, [facility] [address] [id number] [place] [address]- 4687 Dec, [facility] [address] [id number] [place] [address]- 1021 Dec, [facility] [address] [id number] [place] [address]- 4712 Dec, [facility] [address] [id number] [place] [address]- 4004 Dec, [facility] [address] [id number] [place] [address]- 4110 Dec, [facility] [address] [id number] [place] [address]- 4293 Dec, [facility] [address] [id number] [place] [address]- 6263 Dec, [facility] [address] [id number] [place] [address]- 0931 Dec, [facility] [address] [id number] [place] [address]- 4441 November, [facility] [address] [id number] [place] [address]- 2577 November, [facility] [address] [id number] [place] [address]- 3284 Oct, [facility] [address] [id number] [place] [address]- 1390 Sep, [facility] [address] [id number] [place] [address]- 7898 Sep, [facility] [address] [id number] [place] [address]- 0987 Sep, [facility] [address] [id number] [place] [address]- 5896 Sep, [facility] [address] [id number] [place] [address]- 5609 Aug, [facility] [address] [id number] [place] [address]- 4138 Aug, [facility] [address] [id number] [place] [address]- 6948 Jul, [facility] [address] [id number] [place] [address]- 4863 Jul, [facility] [address] [id number] [place] [address]- 4912 Jul, [facility] [address] [id number] [place] [address] Sep, [facility] [address] [facility] [id number] [place] [address]- [address] Sep, [facility] [address] [facility] [id number] [place] [address]- [address] Sep, IMMUNIZATIONS No Known Immunizations SOCIAL HISTORY Never Assessed REASON FOR VISIT Controlled Refill Request 01/30 PLAN OF CARE VITAL SIGNS MEDICATIONS Medication Instructions Dosage Frequency Start Date End Date Duration Status Percocet 10-325 MG Orally every 4 hrs 1 tablet 4h Jan, 28 days Active RESULTS No Results [...]
--- OUTSIDE RECORDS SUMMARY | 2018-06-09 17:49 | XMS REPORT ---
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 268883835 Problem Primary insomnia F51.01 Active 716666974 Problem Chronic fatigue, unspecified R53.82 Active 857424656 Problem Polyneuropathy G62.9 Active 05213454 Problem Anxiety F41.9 Active 21885647 Problem Hypertension, benign I10 Active 37359071 Problem Abdominal pain, left lower quadrant R10.32 Active 362588938 Problem Neuropathy G62.9 Active 522844542 Problem Mood disorder F39 Active 73682975 ALLERGIES No Information SOCIAL HISTORY Never Assessed PLAN OF CARE VITAL SIGNS MEDICATIONS Medication Instructions Dosage Frequency Start Date End Date Duration Status Percocet 10-325 MG Orally every 4 hrs 1 tablet 4h Sep, 28 days Active Klonopin 2 MG Orally [...]
--- OUTSIDE RECORDS SUMMARY | 2018-06-09 17:49 | XMS REPORT ---
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 306873194 Problem Primary insomnia F51.01 Active 811993963 Problem Chronic fatigue, unspecified R53.82 Active 157694843 Problem Polyneuropathy G62.9 Active 57626305 Problem Anxiety F41.9 Active 12371441 Problem Hypertension, benign I10 Active 40527621 Problem Abdominal pain, left lower quadrant R10.32 Active 095052896 Problem Neuropathy G62.9 Active 933045067 Problem Mood disorder F39 Active 50500721 ALLERGIES Substance Reaction Event Type Date Status Morphine Unknown Drug Allergy November, Active Codeine Unknown Drug Allergy November, Active SOCIAL HISTORY Never Assessed PLAN OF CARE VITAL SIGNS Height 67 in 2016-12-08 Weight 185.5 lbs 2016-12-08 Temperature 97.7 degrees Fahrenheit 2016-12-08 Heart Rate 76 bpm 2016-12-08 Respiratory Rate 18 2016-12-08 BMI 29.05 kg/m2 2016-12-08 Blood pressure systolic 150 mmHg 2016-12-08 Blood pressure diastolic 94 mmHg 2016-12-08 MEDICATIONS Medication Instructions Dosage Frequency Start Date End Date Duration Status Percocet 10-325 MG Orally every 4 hrs 1 tablet 4h November, 28 days Active Oxycodone HCl 30 MG Orally 2 times a day 1 tablet as needed 12h November, 28 days Active Gabapentin 600 MG 2 tablet 8h Active Zoloft 100 mg Orally Once a day 1 tablet 24h 30 Active Valium 10 mg Orally Once a day, at night for insomnia 1 tablet as needed November, Active RESULTS No Results PROCEDURES Procedure Date Ordered Result Body Site [facility] VISIT ESTABLISHED PATIENT December 08, 2016 No Charge December 08, 2016 IMMUNIZATIONS No Known Immunizations MEDICAL [...]
--- OUTSIDE RECORDS SUMMARY | 2018-06-09 17:50 | XMS REPORT ---
Author Author LINDA BENTLEY Organization [facility] Address [address] [place] [address] Care Team Providers Care Valance Cutter Name Role Phone LINDA BENTLEY Unavailable PROBLEMS Type Condition ICD9-CM Code VSU67-PK Code Onset Dates Condition Status SNOMED Code Problem Abdominal pain, left lower quadrant R10.32 Active 084144274 Problem Mood disorder F39 Active 87752253 Problem Hypertension, benign I10 Active 48815208 Problem Chronic pain syndrome G89.4 Active 708510257 Problem Attention to urostomy Z43.6 Active 095816964 Problem Anxiety F41.9 Active 36704524 Problem Neuropathy G62.9 Active 621312311 Problem Malignant neoplasm of colon, unspecified part of colon C18.9 Active 671850592 Problem Polyneuropathy G62.9 Active 75017246 Problem Incontinence of feces, unspecified fecal incontinence type R15.9 Active 43045966 Problem Chronic fatigue, unspecified R53.82 Active 128549480 Problem Hydronephrosis with ureteral stricture, not elsewhere classified N13.1 Active 91547518 Problem Primary insomnia F51.01 Active 616603725 Problem 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 [id number] ALLERGIES No Information ENCOUNTERS Encounter Location Date Diagnosis [place] [id number] [place] [address] 22748- 3109 November, Medicare annual wellness visit, initial Z00.00 [place] [id number] [place] [address] 45839- 2783 Oct, Mood disorder F39 ; Attention to urostomy Z43.6 ; Chronic pain syndrome G89.4 and Polyneuropathy G62.9 [place] [address] [place] [id number] [place] [address] 31979- 6258 Sep, Polyneuropathy G62.9 [place] [address] [place] [id number] [place] [address] 12138- 9736 Sep, [facility] [id number] [place] [address] 05778- 5831 Sep, Polyneuropathy G62.9 [facility] [id number] [place] [address] 10531- 8657 Aug, Polyneuropathy G62.9 [facility] [id number] [place] [address] 93742- 4587 Aug, Malignant neoplasm of colon, unspecified part of colon C18.9 and Polyneuropathy G62.9 [facility] [address] 21733- 3065 Aug, Neuropathy G62.9 and Polyneuropathy G62.9 [facility] [id number] [place] [address] 04885- 3316 Jul, Encounter for drug screening Z02.83 [facility] [id number] [place] [address] 25323- 1406 Jul, Polyneuropathy G62.9 [facility] [id number] [place] [address] 16593- 8609 Jul, [facility] [id number] [place] [address] 64217- 5582 Jul, Neuropathy G62.9 and Anxiety F41.9 [facility] [id number] [place] [address] 46788- 1994 Jul, [facility] [id number] [place] [address] 80764- 3356 Jul, [facility] [id number] [place] [address] 93717- 5556 Jul, [facility] [id number] [place] [address] 86093- 9509 Jul, Polyneuropathy G62.9 [facility] [id number] [address]- 4059 Jul, [facility] [id number] [address]- 1211 Jun, [facility] [id number] [place] [address] 46998- 7568 Jun, [facility] [id number] [place] [address] 01681- 9932 Jun, [facility] [address] [place] [id number] [place] [address] 07 Jun, 2017 Encounter for dental examination Z01.20 [facility] [address] [id number] [place] [address] 22858- 3455 Jun, Polyneuropathy G62.9 and Anxiety F41.9 [facility] [id number] [place] [address] 17793- 9364 Jun, [facility] [id number] [address] May, Dental examination Z01.20 [facility] [address] [place] [address] [id number] [place] [address] 32435- 0278 May, Polyneuropathy G62.9 [facility] [address] [place] [id number] [place] [address] 43983- 5491 Apr, Polyneuropathy G62.9 [facility] [address] [place] [id number] [place] [address] 91731- 2850 Apr, Polyneuropathy G62.9 [facility] [address] [id number] [place] [address] 67893- 8935 Apr, Hypertension, benign I10 ; Polyneuropathy G62.9 and Anxiety F41.9 [facility] [address] [address]- 2361 Apr, Primary insomnia F51.01 and Polyneuropathy G62.9 [facility] [address] [place] [id number] [place] [address]- 2652 Apr, Primary insomnia F51.01 and Polyneuropathy G62.9 [facility] [id number] [place] [address], [place] [address]- 6290 Mar, Primary insomnia F51.01 [facility] [id number] [place] [address], [place] [address]- 8363 Mar, [facility] [address] [place] [address] [id number] [place] [address], [place] [address]- 7592 Mar, Polyneuropathy G62.9 [facility] [id number] [place] [address], [place] [address]- 5977 Feb, Primary insomnia F51.01 [facility] [id number] [place] [address], [place] [address]- 3408 Feb, [facility] [address] [id number] [place] [address], [place] [address]- 7533 Feb, [facility] [address] [place] [address] [id number] [place] [address] 30500- 6295 Feb, Polyneuropathy G62.9 [facility] [id number] [place] [address], [place] [address]- 7905 Feb, Primary insomnia F51.01 [facility] [address] [place] [address]- 7696 Jan, [facility] [id number] [place] [address] 75871- 8194 Jan, [facility] [id number] [place] [address], [place] [address]- 1392 Dec, [facility] [address] [place] [address] [id number] [place] [address], [place] [address]- 7615 Dec, Primary insomnia F51.01 [facility] [address] [place] [address]- 1192 Dec, Primary insomnia F51.01 [facility] [address], [place] [address]- 0440 Dec, [facility] [address] [address]- 5375 Dec, [facility] [address] [address]- 9102 Dec, [facility] [id number] [place] [address] 31587- 4535 Dec, [facility] [address] [address]- 4823 November, Primary insomnia F51.01 and Polyneuropathy G62.9 [facility] [address] [place] [id number] [place] [address] 22294- 9040 November, [facility] [address] [place] [id number] [place] [address] 00979- 8280 November, Abdominal pain, left lower quadrant R10.32 [facility] [address], [place] [address]- 2232 November, [facility] [address] [address]- 6779 Oct, [facility] [address], [place] [address]- 5666 Oct, Abdominal pain, left lower quadrant R10.32 ; 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 and Neuropathy G62.9 [facility] [address], [place] [address]- 1581 Oct, [facility] [address], [place] [address]- 5342 Sep, [facility] [address] [place] [id number] [place] [address] [id number] Sep, [facility] [address], [place] [address]- 8544 Sep, [facility] [id number] [address]- 8086 Aug, [facility] [address] [place] [address] [id number] [place] [address] 71570- 6588 Aug, [facility] [address] [place] [id number] [place] [address] 79156- 8783 Aug, Abdominal pain, left lower quadrant R10.32 ; Neuropathy G62.9 and Anxiety F41.9 [facility] [address] [place] [address] Jul, [facility] [address] [place] [id number] [place] [address] 40298- 9435 Jul, [facility] [id number] [place] [address] 79396 -8386 Jul, [facility] [address] [place] [address] [id number] [place] [address] 17592- 1263 Jul, [facility] [address] [place] [address] [id number] [place] [address] 24212- 8179 Jul, [facility] [address] [place] [address] [id number] [place] [address] 67291- 0309 Jun, [facility] [address] [id number] [place] [address] 47314- 8223 May, [facility] [address], [place] [address]- 1505 May, [facility] [address] [place] [id number] [place] [address] 76530- 4112 Apr, [facility] [id number] [place] [address] 39311- 1914 Apr, Muscle spasms of both lower extremities M62.838 and Cellulitis, unspecified cellulitis site L03.90 [facility] [address] [address]- 6557 Apr, [facility] [address] [place] [id number] [place] [address] 62463- 0526 23 Mar, 2016 Generalized abdominal pain R10.84 [facility] [id number] [place] [address] 33803- 1016 20 Mar, 2015 [facility] [address] [place] [id number] [place] [address] 09318- 6389 14 Mar, 2015 [facility] [address] [place] [address] [id number] [place] [address] 85925- 7458 14 Mar, 2015 [facility] [address] [place] [address] [id number] [place] [address] 22798- 3972 13 Mar, 2015 [facility] [address] [place] [address] [id number] [place] [address] 30492- 2060 12 Mar, 2016 [facility] [address] [place] [id number] [place] [address] 41812- 4546 09 Mar, 2016 [facility] [address] [place] [id number] [place] [address] 00408- 2737 06 Mar, 2016 [facility] [address] [place] [id number] [place] [address] 88706- 4785 Feb, Other specified diseases of anus and rectum K62.89 [facility] [id number] [place] [address] 01665- 0150 Feb, [facility] [id number] [place] [address] 23679- 0047 Feb, Dizziness R42 [facility] [address] [address]- 3966 Feb, [facility] [id number] [place] [address] 13390- 3439 Jan, Polyneuropathy G62.9 [facility] [address], [place] [address]- 0463 Jan, Other specified diseases of anus and rectum K62.89 [facility] [address], [place] [address]- 8238 Jan, [facility] [address] [id number] [place] [address] -7[address] 16 Jan, 2016 [facility] [address] [facility] [id number] [place] [address]- 1962 Jan, [facility] [address] [facility] [id number] [place] [address]- 5983 Jan, Dizziness R42 [facility] [address] [facility] [id number] [place] [address]- 9144 Dec, [facility] [address] [id number] [place] [address]- 8938 Dec, [facility] [address] [facility] [id number] [place] [address]- 7864 Dec, [facility] [address] [facility] [id number] [place] [address]- 1581 Dec, Dizziness R42 [facility] [address] [facility] [id number] [place] [address]- 0209 November, [facility] [address] [facility] [id number] [place] [address]- 1263 Oct, [facility] [address] [facility] [id number] [place] [address]- 6614 Oct, [facility] [address] [facility] [id number] [place] [address]- 0694 Oct, [facility] [address] [facility] [id number] [place] [address]- 5304 Oct, [facility] [address] [facility] [id number] [place] [address]- 2899 Sep, [facility] [address] [facility] [id number] [place] [address]- 5529 Sep, Primary insomnia F51.01 [facility] [address] [facility] [id number] [place] [address]- 9676 Sep, Primary insomnia F51.01 [facility] [id number] [place] [address] 15490- 1421 Sep, [facility] [address] [place] [address] [id number] [place] [address] 83507- 1966 Aug, [facility] [address] [place] [id number] [place] [address] 29673- 8196 Aug, [facility] [address] [id number] [place] [address] 56967- 5621 Aug, Primary insomnia F51.01 ; Mood disorder F39 ; Nausea and vomiting, unspecified intactability, vomiting of unspecified type R11.2 and Diarrhea R19.7 [facility] [address] [place] [id number] [place] [address] 18885- 9534 Aug, [facility] [address] [place] [address] [id number] [place] [address] 72510- 8505 Aug, Folliculitis L73.9 [facility] [id number] [place] [address] 91991- 8902 Aug, [facility] [address] [place] [address] [id number] [place] [address] 79001- 3671 Aug, [facility] [address] [place] [address] 44129- 4750 Jul, Folliculitis L73.9 [facility] [address] [place] [address] [id number] [place] [address] 36418- 0144 Jul, [facility] [address] [place] [address] [id number] [place] [address] 30633- 5166 Jun, Folliculitis L73.9 [facility] [address] [place] [address] 33938- 8770 Jun, [facility] [address] [place] [address] 00271- 2731 May, Polyneuropathy G62.9 [facility] [id number] [address]- 8299 May, Other specified diseases of anus and rectum K62.89 [facility] [address], [place] [address]- 2529 May, [facility] [address] [place] [address] 58751- 1941 May, Primary insomnia F51.01 [facility] [address] [place] [id number] [place] [address] 50803- 4240 May, [facility] [address] [id number] [place] [address] 39611- 5934 May, [facility] [address] [place] [address] 63616- 6047 Apr, Other specified diseases of anus and rectum K62.89 ; Chronic fatigue R53.82 ; Urinary tract infection, site not specified N39.0 and Enterococcus as the cause of diseases classified elsewhere B95.2 [facility] [address], [place] [address]- 8265 16 Apr, 2015 [facility] [address] [place] [id number] [place] [address] 94007- 5345 15 Apr, 2015 [facility] [id number] [place] [address] 81564- 8144 14 Apr, 2015 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 [facility] [address], [place] [address]- 7703 05 Apr, 2015 [facility] [address], [place] [address]- 4204 Mar, [facility] [address] [id number] [place] [address] 59143- 5933 23 Mar, 2015 [facility] [address], [place] [address]- 9981 17 Mar, 2015 [facility] [id number] [place] [address] 74582- 5524 14 Mar, 2015 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 [facility] [address], [place] [address]- 2037 12 Mar, 2015 [facility] [id number] [place] [address] 06501- 2671 Mar, [facility] [id number] [place] [address] 60693- 7620 Mar, [facility] [id number] [place] [address] 72990- 3139 Mar, [facility] [id number] [place] [address] 63848- 4604 Feb, [facility] [id number] [place] [address] 95443- 9341 Feb, [facility] [id number] [place] [address] 02311- 8555 Feb, [facility] [id number] [place] [address] 70656- 0264 Jan, [facility] [id number] [place] [address] 72325- 0618 Jan, Nausea 787.02 and Neuropathy 355.9 [facility] [address], [place] [address]- 9191 Jan, [facility] [id number] [place] [address] 02537- 2723 Jan, [facility] [address], [place] [address]- 7998 Jan, [facility] [address] [id number] Jan, Dental examination V72.2 [facility] [address], [place] [address]- 9733 Jan, [facility] [id number] [place] [address] 54070- 6882 Dec, [facility] [address] [id number] [place] [address]- 6356 Dec, [facility] [place] [facility] [address] [facility] [id number] [place] [address]- 6741 Dec, Neuropathy 355.9 [facility] [address] [facility] [id number] [place] [address]- 3076 November, [facility] [place] [facility] [address] [id number] [place] [address]- 6755 November, [facility] [address] [id number] [place] [address]- 9920 November, [facility] [place] [facility] [address] [id number] [place] [address]- 7214 Oct, [facility] [address] [facility] [id number] [place] [address]- 6427 Oct, [facility] [place] [facility] [address] [id number] [place] [address]- 6133 Sep, [facility] [place] [facility] [address] [id number] [place] [address]- 6175 Sep, [facility] [place] [facility] [address] [facility] [id number] [place] [address]- 4169 Sep, [facility] [place] [facility] [address] [facility] [id number] [place] [address]- 7228 Sep, [facility] [place] [facility] [address] [id number] [address]- 5097 Sep, [facility] [place] [facility] [address] [id number] [place] [address]- 6818 Sep, [facility] [place] [facility] [address] [facility] [id number] [place] [address]- 9110 Sep, [facility] [place] [facility] [address] [facility] [id number], [place] [address]- 1754 Sep, [facility] [place] [facility] [address] [id number] [place] [address]- 2441 Aug, 2014 [facility] [place] [facility] [address] [id number] [place] [address]- 6062 Aug, 2014 [facility] [place] [facility] [address] [id number] [place] [address]- 7796 Aug, 2014 [facility] [place] [facility] [address] [id number] [place] [address]- 9922 Aug, 2014 [facility] [place] [facility] [address] [id number] [place] [address]- 3745 Aug, 2014 [facility] [place] [facility] [address] [id number] [place] [address] Aug, 2014 [facility] [place] [facility] [address] [id number] [place] [address] Aug, 2014 [facility] [place] [facility] [address] [id number] [place] [address] Aug, 2014 [facility] [place] [facility] [address] [id number] [place] [address] Jul, [facility] [place] [facility] [address] [facility] [id number] [place] [address] Jul, [facility] [place] [facility] [address] [id number] [place] [address] Jun, [facility] [place] [facility] [address] [id number] [place] [address] Jun, [facility] [place] [facility] [address] [id number] [place] [address] Jun, [facility] [place] [facility] [address] [id number] [place] [address] Jun, [facility] [place] [facility] [address] [id number] [place] [address] Jun, [facility] [place] [facility] [address] [id number] [place] [address] Jun, [facility] [place] [facility] [address] [id number] [place] [address] Jun, [facility] [place] [facility] [address] [id number] [place] [address] Jun, [facility] [place] [facility] [address] [id number] [place] [address] Jun, [facility] [place] [facility] [address] [id number] [place] [address]- [address] Jun, [facility] [place] [facility] [address] [id number] [place] [address]- [address] Jun, [facility] [place] [facility] [address] [id number] [place] [address]- [address] May, [facility] [place] [facility] [address] [id number] [place] [address]- [address]698 May, [facility] [place] [facility] [address] [id number] [place] [address]- [address] May, [facility] [place] [facility] [address] [id number] [place] [address]- [address] May, [facility] [place] [facility] [address] [facility] [id number] [place] [address] May, [facility] [place] [facility] [address] [id number] [place] [address] May, [facility] [place] [facility] [address] [id number], [place] [address] May, [facility] [place] [facility] [address] [id number] [place] [address]- [address] May, [facility] [place] [facility] [address] [id number] [place] [address] May, [facility] [place] [facility] [address] [id number] [place] [address] Apr, [facility] [place] [facility] [address] [id number] [place] [address] Apr, [facility] [place] [facility] [address] [id number] [place] [address]- [address] Apr, [facility] [place] [facility] [address] [id number] [place] [address] Apr, [facility] [place] [facility] [address] [id number] [place] [address] Apr, [facility] [place] [facility] [address] [id number] [place] [address] Mar, [facility] [place] [facility] [address] [id number] [place] [address] 68[address] Mar, [facility] [place] [facility] [address] [id number] [place] [address] Feb, [facility] [place] [facility] [address] [id number] [place] [address] Feb, [facility] [place] [facility] [address] [id number] [place] [address] Feb, [facility] [place] [facility] [address] [id number] [place] [address] Feb, [facility] [place] [facility] [address] [id number] [place] [address] Feb, [facility] [place] [facility] [address] [id number] [place] [address]- [address]148 Feb, [facility] [place] [facility] [address] [id number] [place] [address]- [address] Jan, [facility] [place] [facility] [address] [id number] [place] [address] Jan, [facility] [place] [facility] [address] [id number] [place] [address] Jan, [facility] [place] [facility] [address] [id number] [place] [address]- [address] Jan, [facility] [place] [facility] [address] [id number] [place] [address]- [address] Jan, [facility] [place] [facility] [address] [id number] [place] [address]- [address] Jan, [facility] [place] [facility] [address] [id number] [place] [address] Jan, [facility] [place] [facility] [address] [id number] [place] [address] Jan, [facility] [place] [facility] [address] [id number] [place] [address] Jan, [facility] [place] [facility] [address] [id number] [place] [address] 1990 Jan, [facility] [place] [facility] [address] [id number] [place] [address] Jan, [facility] [place] [facility] [address] [id number] [place] [address] Dec, [facility] [place] [facility] [address] [id number] [place] [address] Dec, [facility] [place] [facility] [address] [id number] [place] [address] Dec, [facility] [place] [facility] [address] [id number] [place] [address] Dec, [facility] [place] [facility] [address] [id number] [place] [address] Dec, [facility] [place] [facility] [address] [id number] [place] [address] Dec, [facility] [place] [facility] [address] [id number] [place] [address] November, [facility] [place] [facility] [address] [id number] [place] [address] November, [facility] [place] [facility] [address] [id number] [place] [address] 15 Nov, 2013 [facility] [place] [facility] [address] [id number] [place] [address] November, [facility] [place] [facility] [address] [id number] [place] [address] November, [facility] [place] [facility] [address] [id number] [place] [address] November, [facility] [place] [facility] [address] [id number] [place] [address] Oct, [facility] [place] [facility] [address] [id number] [place] [address] Oct, [facility] [place] [facility] [address] [id number] [place] [address] Oct, [facility] [place] [facility] [address] [id number] [place] [address] Oct, [facility] [place] [facility] [address] [id number] [place] [address] Sep, [facility] [place] [facility] [address] [id number] [place] [address]- [address] Sep, [facility] [place] [facility] [address] [facility] [id number] [place] [address] Sep, [facility] [place] [facility] [address] [id number] [place] [address] Sep, [facility] [place] [facility] [address] [id number] [place] [address] Sep, [facility] [place] [facility] [address] [id number] [place] [address] Aug, [facility] [place] [facility] [address] [id number] [place] [address] Aug, [facility] [place] [facility] [address] [id number] [place] [address] Aug, [facility] [address] [id number] [place] [address] Aug, [facility] [address] [id number] [place] [address] Aug, [facility] [address] [place] [id number] May, [facility] [address] [id number] [place] [address] May, [facility] [address] [id number] [place] [address] May, [facility] [address] [id number] [place] [address] May[facility] [address] [id number] [place] [address] May, [facility] [address] [id number] [place] [address] Apr, [facility] [address] [id number] [place] [address] Apr, [facility] [address] [id number] [place] [address] Apr, [facility] [address] [id number] [place] [address] 70[address] Apr, [facility] [address] [id number], [place] [address] Apr, [facility] [address] [id number] [place] [address] Apr, [facility] [address] [id number] [place] [address] Apr, [facility] [address] [id number] [place] [address] Mar, [facility] [address] [id number] [place] [address] 25 Mar, 2013 [facility] [place] [facility] [address] [id number] [place] [address]- [address]25 24 Mar, 2013 [facility] [place] [facility] [address] [id number] [place] [address] 1447 16 Mar, 2013 [facility] [place] [facility] [address] [id number] [place] [address]365 Mar, [facility] [place] [facility] [address] [id number] [place] [address]- [address]65 Mar, [facility] [place] [facility] [address] [id number] [place] [address]- [address] Feb, [facility] [place] [facility] [address] [id number] [place] [address] Feb, [facility] [place] [facility] [address] [id number] [place] [address]- 1197 Feb, [facility] [place] [facility] [address] [id number] [place] [address] Feb, [facility] [place] [facility] [address] [id number] [place] [address] 1399 Feb, [facility] [place] [facility] [address] [id number] [place] [address]- 4976 Feb, [facility] [place] [facility] [address] [id number] [place] [address]- [address] Jan, [facility] [place] [facility] [address] [id number] [place] [address]- 2854 Dec, [facility] [place] [facility] [address] [id number] [place] [address]- [address]114 Dec, [facility] [place] [facility] [address] [id number] [place] [address]- [address]72 Dec, [facility] [place] [facility] [address] [id number] [place] [address] Dec, [facility] [place] [facility] [address] [id number] [place] [address]- 3961 19 Dec, 2012 [facility] [address] [id number] [place] [address] 18 Dec, 2012 [facility] [address] [id number] [place] [address]- [address] 17 Dec, 2012 [facility] [address] [id number] [place] [address] 69[address] Dec, [facility] [address] [id number] [place] [address] Dec, [facility] [address] [id number] [place] [address] November, [facility] [address] [id number] [place] [address]- [address]014 November, [facility] [address] [id number] [place] [address]- 3581 Oct, [facility] [address] [id number] [place] [address]- 6264 Sep, [facility] [address] [id number] [place] [address]- [address] Sep, [facility] [address] [id number] [place] [address] Sep, [facility] [address] [id number] [place] [address]- 3697 Sep, [facility] [address] [id number] [place] [address]- [address]197 Aug, [facility] [address] [id number] [place] [address]- 0940 Aug, [facility] [address] [id number] [place] [address]- [address] Jul, [facility] [address] [id number] [place] [address]- 4739 Jul, [facility] [address] [facility] [id number], [place] [address] Jul, [facility] [address] [facility] [id number], [place] [address]36 Sep, [facility] [address] [facility] [id number], [place] [address] Sep, [facility] [address] [facility] [id number], [place] [address] Sep, IMMUNIZATIONS No Known Immunizations SOCIAL HISTORY Never Assessed REASON FOR VISIT Controlled Refill Requests PLAN OF CARE VITAL SIGNS MEDICATIONS Medication Instructions Dosage Frequency Start Date End Date Duration Status Ambien 10 MG Orally Once a day 1 tablet at bedtime as needed 24h Dec, 28 days Active Lyrica 75 MG Orally 3 times a day 2 capsules 8h Dec, 28 days Active RESULTS No Results [...]
--- OUTSIDE RECORDS SUMMARY | 2018-06-09 17:53 | XMS REPORT ---
Author Author RIVER ARCE [facility] Address [address] [place] [address] Care Team Providers Care Clerical Associate Name Role Phone RIVER ARCE Unavailable PROBLEMS Type Condition ICD9-CM Code SUT22-LP Code Onset Dates Condition Status SNOMED Code Problem Abdominal pain, left lower quadrant R10.32 Active 433268476 Problem Mood disorder F39 Active 24283804 Problem Hypertension, benign I10 Active 08973179 Problem Chronic pain syndrome G89.4 Active 988995382 Problem Attention to urostomy Z43.6 Active 000207276 Problem Anxiety F41.9 Active 77451193 Problem Neuropathy G62.9 Active 626189702 Problem Malignant neoplasm of colon, unspecified part of colon C18.9 Active 506924705 Problem Polyneuropathy G62.9 Active 86526711 Problem Incontinence of feces, unspecified fecal incontinence type R15.9 Active 38742380 Problem Chronic fatigue, unspecified R53.82 Active 270315802 Problem Hydronephrosis with ureteral stricture, not elsewhere classified N13.1 Active 76782080 Problem Primary insomnia F51.01 Active 924918317 Problem 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 522016155 ALLERGIES No Information ENCOUNTERS Encounter Location Date Diagnosis [place] [id number] [place] [address] 25756- 3682 November, Medicare annual wellness visit, initial Z00.00 [place] [id number] [address] 0084 Oct, [place] [id number] [place] [address] 82390- 4357 Oct, [place] [id number] [place] [address] 77766- 9311 Oct, Mood disorder F39 ; Attention to urostomy Z43.6 ; Chronic pain syndrome G89.4 and Polyneuropathy G62.9 [facility] [id number] [place] [address] 82998- 0817 Sep, Polyneuropathy G62.9 [facility] [id number] [place] [address] 02681- 3443 Sep, [facility] [id number] [place] [address] 97629- 9663 Sep, Polyneuropathy G62.9 [facility] [id number] [place] [address] 00989- 1298 Aug, Polyneuropathy G62.9 [facility] [id number] [place] [address] 20250- 7991 Aug, Malignant neoplasm of colon, unspecified part of colon C18.9 and Polyneuropathy G62.9 [facility] [id number] [place] [address] 15175- 5686 Aug, Neuropathy G62.9 and Polyneuropathy G62.9 [facility] [id number] [place] [address] 51088- 0933 Jul, Encounter for drug screening Z02.83 [facility] [id number] [place] [address] 07833- 6648 Jul, Polyneuropathy G62.9 [facility] [id number] [place] [address] 40012- 8142 Jul, [facility] [address] [place] [address] 99046- 8324 Jul, Neuropathy G62.9 and Anxiety F41.9 [facility] [id number] [place] [address] 50235- 5122 Jul, [facility] [id number] [place] [address] 17661- 5767 Jul, [facility] [address] [place] [address] 81040- 9842 Jul, [facility] [address] [address]- 4702 Jul, Polyneuropathy G62.9 [facility] [address] [address]- 3379 Jul, [facility] [id number] [place] [address] 90651- 3984 Jun, [facility] [id number] [place] [address] 61304- 2967 Jun, [facility] [id number] [place] [address] 28130- 5234 Jun, [facility] [id number] [address] Jun, Encounter for dental examination Z01.20 [facility] [id number] [place] [address] 53395- 7839 Jun, Polyneuropathy G62.9 and Anxiety F41.9 [facility] [address] [place] [address] 72449- 3948 Jun, [facility] [id number] [address] May, Dental examination Z01.20 [facility] [address] [address] 4616 May, Polyneuropathy G62.9 [facility] [address] [address]- 6710 Apr, Polyneuropathy G62.9 [facility] [address] [address]- 3292 Apr, Polyneuropathy G62.9 [facility] [address] [address]- 1026 Apr, Hypertension, benign I10 ; Polyneuropathy G62.9 and Anxiety F41.9 [facility] [address] [place] [address] 71838- 7734 Apr, Primary insomnia F51.01 and Polyneuropathy G62.9 [facility] [address] [place] [address] 94637- 0763 Apr, Primary insomnia F51.01 and Polyneuropathy G62.9 [facility] [address] 51867- 8263 Mar, Primary insomnia F51.01 [facility] [id number] [place] [address] 10974- 3783 Mar, [facility] [address] [place] [address] 84572- 8936 Mar, Polyneuropathy G62.9 [facility] [address] [place] [address] 49781- 1184 Feb, Primary insomnia F51.01 [facility] [id number] [place] [address] 37107- 7154 Feb, [facility] [id number] [place] [address] 39873- 3094 Feb, [facility] [address] [place] [address] 63942- 8393 Feb, Polyneuropathy G62.9 [facility] [address] [place] [address] 20163- 7634 Feb, Primary insomnia F51.01 [facility] [id number] [place] [address] 13037- 1231 Jan, [facility] [id number] [place] [address] 88294- 1362 Jan, [facility] [address] [place] [address] 42695- 9130 Dec, [facility] [address] [place] [address]- 0346 Dec, Primary insomnia F51.01 [facility] [address] [place] [address] 81626- 3016 Dec, Primary insomnia F51.01 [facility] [address] [address]- 2548 Dec, [facility] [address] [place] [address] 62015- 9287 Dec, [facility] [address] [place] [address] 58792- 2584 Dec, [facility] [id number] [place] [address] 90746- 8853 Dec, [facility] [address] [place] [address] 45391- 0964 November, Primary insomnia F51.01 and Polyneuropathy G62.9 [facility] [address] [address]- 9767 November, [facility] [address] [place] [address] 92219- 7990 November, Abdominal pain, left lower quadrant R10.32 [facility] [address] [address]- 6890 November, [facility] [address], [place] [address]- 254 Oct, [facility] [address] [address]- 2544 Oct, Abdominal pain, left lower quadrant R10.32 ; 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 and Neuropathy G62.9 [facility] [address] [address]- 2546 Oct, [facility] [address] [address]- 3624 Sep, [facility] [id number] [place] [address] [id number] Sep, [facility] [address] [place] [address] 27533- 6535 Sep, [facility] [address] [place] [address] 60433- 9780 Aug, [facility] [address] [place] [address] 36405- 3446 Aug, [facility] [address] [place] [address] 46250- 1099 Aug, Abdominal pain, left lower quadrant R10.32 ; Neuropathy G62.9 and Anxiety F41.9 [facility] [address] [place] [address] Jul, [facility] [address] [place] [address] 86886- 3943 Jul, [facility] [id number] [place] [address] 62422 -7661 Jul, [facility] [address] [place] [address] 73220- 3579 Jul, [facility] [address] [place] [address] 01566- 6028 Jul, [facility] [address] [place] [address] 90948- 8360 Jun, [facility] [address] [place] [address] 25940- 8970 May, [facility] [address] [place] [address] 07566- 4337 May, [facility] [address] [place] [address] 52176- 3306 Apr, [facility] [address] [place] [address] 35205- 2971 Apr, Muscle spasms of both lower extremities M62.838 and Cellulitis, unspecified cellulitis site L03.90 [facility] [address] [address]- 5345 07 Apr, 2016 [facility] [address] [place] [address] 31111- 8769 23 Mar, 2016 Generalized abdominal pain R10.84 [facility] [id number] [place] [address] 35522- 1181 20 Mar, 2016 [facility] [address] [place] [address] 50837- 3474 14 Mar, 2016 [facility] [address] [place] [address] 02250- 8653 14 Mar, 2016 [facility] [address] [place] [address] 34619- 5104 13 Mar, 2016 [facility] [address] [place] [address] 39720- 5190 12 Mar, 2016 [facility] [address] [place] [address] 59972- 9839 09 Mar, 2016 [facility] [address] [place] [address] 35062- 4782 06 Mar, 2016 [facility] [address] [address]- 2052 17 Feb, 2016 Other specified diseases of anus and rectum K62.89 [facility] [address], [place] [address]- 3138 15 Feb, 2016 [facility] [address] [address]- 1913 Feb, Dizziness R42 [facility] [address] [address]- 5715 08 Feb, 2016 [facility] [address], [place] [address]- 6770 Jan, Polyneuropathy G62.9 [facility] [address] [id number] [place] [address]- 2167 Jan, Other specified diseases of anus and rectum K62.89 [facility] [address] [id number] [place] [address]- 6949 Jan, [facility] [address] [facility] [id number] [place] [address] -4279 Jan, [facility] [address] [id number] [place] [address]- 0022 Jan, [facility] [address] [id number] [place] [address]- 0518 Jan, Dizziness R42 [facility] [address] [facility] [id number] [place] [address]- 8237 Dec, [facility] [address] [facility] [id number] [place] [address]- 5868 Dec, [facility] [address] [facility] [id number] [place] [address]- 3429 Dec, [facility] [address] [facility] [id number] [place] [address]- 2183 Dec, Dizziness R42 [facility] [address] [facility] [id number] [place] [address]- 2137 November, [facility] [address] [facility] [id number] [place] [address]- 3137 Oct, [facility] [address] [facility] [id number] [place] [address]- 5411 Oct, [facility] [address] [facility] [id number] [place] [address]- 2372 Oct, [facility] [address] [facility] [id number] [place] [address]- 9427 Oct, [facility] [address] [facility] [id number] [place] [address]- 8267 Sep, [facility] [address] [place] [address] 83323- 5878 Sep, Primary insomnia F51.01 [facility] [address] [place] [address] 48169- 4763 Sep, Primary insomnia F51.01 [facility] [address] [place] [address] 71712- 3732 Sep, [facility] [address] [place] [address] 76272- 8551 Aug, [facility] [address] [place] [address] 73533- 1913 Aug, [facility] [address] [place] [address] 63006- 2947 Aug, Primary insomnia F51.01 ; Mood disorder F39 ; Nausea and vomiting, unspecified intactability, vomiting of unspecified type R11.2 and Diarrhea R19.7 [facility] [address] [place] [address] 64733- 0712 Aug, [facility] [address] [place] [address] 84206- 8908 Aug, Folliculitis L73.9 [facility] [address] [place] [address] 13811- 8967 Aug, [facility] [address] [place] [address] 12495- 7238 Aug, [facility] [address] [place] [address] 77782- 1894 Jul, Folliculitis L73.9 [facility] [address] [place] [address] 89852- 6676 Jul, [facility] [address] [place] [address] 90753- 8112 Jun, Folliculitis L73.9 [facility] [address] [address]- 0098 Jun, [facility] [address] [place] [address] 40763- 5071 May, Polyneuropathy G62.9 [facility] [address] [place] [address] 27568- 6037 May, Other specified diseases of anus and rectum K62.89 [facility] [address] [place] [address] 57334- 9596 May, [facility] [address] [place] [address] 46762- 0221 May, Primary insomnia F51.01 [facility] [address] [place] [address] 93835- 7956 May, [facility] [address] [place] [address] 34616- 4689 May, [facility] [address] [place] [address] 53728- 8516 Apr, Other specified diseases of anus and rectum K62.89 ; Chronic fatigue R53.82 ; Urinary tract infection, site not specified N39.0 and Enterococcus as the cause of diseases classified elsewhere B95.2 [facility] [address] [place] [address] 37868- 7014 16 Apr, 2015 [facility] [address] [place] [address] 81546- 5888 Apr, [facility] [address] [place] [address] 01585- 5674 14 Apr, 2015 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 [facility] [address] [place] [address] 45079- 3288 Apr, [facility] [address] [place] [address] 09361- 5780 Mar, [facility] [address] [place] [address] 15330- 2932 23 Mar, 2015 [facility] [address] [address]- 4677 17 Mar, 2015 [facility] [address] [place] [address] 62325- 4253 14 Mar, 2015 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 [facility] [address] [place] [address] 22082- 9378 12 Mar, 2015 [facility] [address] [place] [address] 30184- 2549 11 Mar, 2015 [facility] [address] [place] [address] 12711- 3709 11 Mar, 2015 [facility] [address] [place] [address] 53762- 0122 10 Mar, 2015 [facility] [address] [place] [address] 49488- 0723 28 Feb, 2015 [facility] [address] [place] [address] 97006- 0293 14 Feb, 2015 [facility] [address] [place] [address] 02287- 3119 Feb, [facility] [address] [address]- 6129 30 Jan, 2015 [facility] [address] [place] [address] 14579- 3622 27 Jan, 2015 Nausea 787.02 and Neuropathy 355.9 [facility] [address] [address]- 3817 Jan, [facility] [address] [address]- 5517 Jan, [facility] [address], [place] [address]- 4424 16 Jan, 2015 [facility] [address] [address] Jan, Dental examination V72.2 [facility] [address] [id number] [place] [address]- 9496 Jan, [facility] [place] [facility] [address] [id number], [place] [address]- 7506 Dec, [facility] [address] [id number] [place] [address]- 1926 Dec, [facility] [place] [facility] [address] [id number], [place] [address]- 3215 Dec, Neuropathy 355.9 [facility] [address] [id number] [place] [address]- 1777 November, [facility] [place] [facility] [address] [facility] [id number] [place] [address]- 0026 November, [facility] [address] [facility] [id number] [place] [address]- 2466 November, [facility] [address] [facility] [id number], [place] [address]- 0468 Oct, [facility] [place] [facility] [address] [facility] [id number] [place] [address]- 9531 Oct, [facility] [address] [facility] [id number], [place] [address] Sep, [facility] [place] [facility] [address] [id number], [place] [address] Sep, [facility] [place] [facility] [address] [id number], [place] [address] Sep, [facility] [place] [facility] [address] [id number] [place] [address] Sep, [facility] [place] [facility] [address] [facility] [id number], [place] [address] Sep, [facility] [place] [facility] [address] [id number], [place] [address] Sep, [facility] [place] [facility] [address] [id number] [place] [address] Sep, [facility] [place] [facility] [address] [id number] [place] [address] Sep, [facility] [place] [facility] [address] [id number] [place] [address] Aug, 2014 [facility] [place] [facility] [address] [id number] [place] [address] Aug, 2014 [facility] [place] [facility] [address] [id number] [place] [address] Aug, 2014 [facility] [place] [facility] [address] [id number] [place] [address] Aug, 2014 [facility] [place] [facility] [address] [id number] [place] [address] Aug, 2014 [facility] [place] [facility] [address] [id number] [place] [address] Aug, 2014 [facility] [place] [facility] [address] [id number] [place] [address] Aug, [facility] [place] [facility] [address] [facility] [id number] [place] [address] Aug, [facility] [place] [facility] [address] [facility] [id number] [place] [address] Jul, [facility] [place] [facility] [address] [id number] [place] [address] Jul, [facility] [place] [facility] [address] [id number] [place] [address] Jun, [facility] [place] [facility] [address] [id number] [place] [address] Jun, [facility] [place] [facility] [address] [facility] [id number] [place] [address] Jun, [facility] [place] [facility] [address] [id number] [place] [address]- [address] Jun, [facility] [place] [facility] [address] [id number] [place] [address] Jun, [facility] [place] [facility] [address] [id number] [place] [address]- [address] Jun, [facility] [place] [facility] [address] [id number] [place] [address] Jun, [facility] [place] [facility] [address] [id number] [place] [address]- [address] Jun, [facility] [place] [facility] [address] [id number] [place] [address] Jun, [facility] [place] [facility] [address] [id number] [place] [address] Jun, [facility] [place] [facility] [address] [id number] [place] [address] Jun, [facility] [place] [facility] [address] [id number] [place] [address]- [address] May, [facility] [place] [facility] [address] [id number] [place] [address] May, [facility] [place] [facility] [address] [id number] [place] [address]- [address] May, [facility] [place] [facility] [address] [id number] [place] [address] May, [facility] [place] [facility] [address] [id number] [place] [address] May, [facility] [place] [facility] [address] [id number] [place] [address] May, [facility] [place] [facility] [address] [id number] [place] [address] May, [facility] [place] [facility] [address] [id number] [place] [address]- [address] May, [facility] [place] [facility] [address] [id number] [place] [address] May, [facility] [place] [facility] [address] [id number] [place] [place] [address] Apr, [facility] [place] [facility] [address] [id number] [place] [address] Apr, [facility] [place] [facility] [address] [id number] [place] [address] Apr, [facility] [place] [facility] [address] [id number] [place] [address] Apr, [facility] [place] [facility] [address] [id number] [place] [address] Apr, [facility] [place] [facility] [address] [id number] [place] [address] 93[address] Mar, [facility] [place] [facility] [address] [id number] [place] [address] Mar, [facility] [place] [facility] [address] [id number] [place] [address] Feb, [facility] [place] [facility] [address] [id number] [place] [address] 6178 Feb, [facility] [place] [facility] [address] [id number] [place] [address] 2875 Feb, [facility] [place] [facility] [address] [id number] [place] [address] 6101 Feb, [facility] [place] [facility] [address] [id number] [place] [address] 27[address] Feb, [facility] [place] [facility] [address] [id number] [place] [address] 2792 Feb, [facility] [place] [facility] [address] [id number] [place] [address]885 Jan, [facility] [place] [facility] [address] [id number] [place] [address] 96[address] Jan, [facility] [place] [facility] [address] [id number] [place] [address] Jan, [facility] [place] [facility] [address] [id number] [place] [address] 36[address] Jan, [facility] [place] [facility] [address] [id number] [place] [address]- 1071 Jan, [facility] [place] [facility] [address] [id number] [place] [address]- 8551 Jan, [facility] [place] [facility] [address] [id number] [place] [address]- 0877 Jan, [facility] [place] [facility] [address] [id number] [place] [address] 8717 Jan, [facility] [place] [facility] [address] [id number] [place] [address]- 0692 Jan, [facility] [place] [facility] [address] [id number] [place] [address]- 9753 Jan, [facility] [place] [facility] [address] [id number] [place] [address]- 9865 Jan, [facility] [place] [facility] [address] [id number] [place] [address]- 7521 Dec, [facility] [place] [facility] [address] [id number] [place] [address]- 3208 Dec, [facility] [place] [facility] [address] [id number] [place] [address]- 9420 Dec, [facility] [place] [facility] [address] [id number] [place] [address]- 0197 Dec, [facility] [place] [facility] [address] [id number] [place] [address] 5319 Dec, [facility] [place] [facility] [address] [id number] [place] [address] 6006 Dec, [facility] [place] [facility] [address] [id number] [place] [address]- 1717 November, [facility] [address] [id number] [place] [address] 2078 November, [facility] [address] [id number] [place] [address]16 November, [facility] [address] [id number] [place] [address]- 4443 November, [facility] [address] [id number] [place] [address] 8928 November, [facility] [address] [id number] [place] [address] 1280 November, [facility] [address] [id number] [place] [address] 8670 Oct, [facility] [address] [id number] [place] [address] 1978 Oct, [facility] [address] [id number] [place] [address] 6470 Oct, [facility] [address] [id number] [place] [address]- 0885 Oct, [facility] [address] [id number] [place] [address]- 4521 Sep, [facility] [place] [facility] [address] [id number] [place] [address]- [address]8 17 Sep, 2013 [facility] [address] [id number] [place] [address]- 8682 Sep, [facility] [place] [facility] [address] [id number] [place] [address] 3961 Sep, [facility] [place] [facility] [address] [id number] [place] [address]- 7146 Sep, [facility] [place] [facility] [address] [id number] [place] [address] 1527 Aug, [facility] [address] [id number] [place] [address]- 8843 Aug, [facility] [address] [id number] [place] [address]- 1756 Aug, [facility] [address] [id number] [place] [address] 4073 Aug, [facility] [address] [id number] [place] [address]- 8[address] Aug, [facility] [address] [place] [id number] May, [facility] [address] [id number] [place] [address]- 2984 May, [facility] [address] [id number] [place] [address]- 2448 May, [facility] [address] [id number], [place] [address]- 6528 May, [facility] [address] [id number], [place] [address]646 May, [facility] [address] [id number], [place] [address] 6874 Apr, [facility] [address] [id number], [place] [address] 50[address] Apr, [facility] [place] [facility] [address] [id number], [place] [address]- 5760 Apr, [facility] [place] [facility] [address] [id number][place] [address] 9975 Apr, [facility] [place] [facility] [address] [id number][place] [address] Apr, [facility] [place] [facility] [address] [id number], [place] [address]- 6288 Apr, [facility] [place] [facility] [address] [id number], [place] [address] 3515 Apr, [facility] [place] [facility] [address] [id number] [place] [address]- 6281 28 Mar, 2013 [facility] [place] [facility] [address] [id number] [place] [address]- 9832 25 Mar, 2013 [facility] [place] [facility] [address] [id number] [place] [address]- 3258 24 Mar, 2013 [facility] [place] [facility] [address] [id number] [place] [address]- 1866 16 Mar, 2013 [facility] [place] [facility] [address] [id number] [place] [address]- 7612 Mar, [facility] [place] [facility] [address] [id number] [place] [address]- 6945 Mar, [facility] [place] [facility] [address] [id number] [place] [address]- 5108 Feb, [facility] [place] [facility] [address] [id number] [place] [address]- 1715 Feb, [facility] [place] [facility] [address] [id number] [place] [address]- 7898 Feb, [facility] [place] [facility] [address] [id number] [place] [address]- 7780 Feb, [facility] [place] [facility] [address] [id number] [place] [address]- 3699 Feb, [facility] [place] [facility] [address] [id number] [place] [address]- 7877 Feb, [facility] [place] [facility] [address] [id number] [place] [address]- 9623 Jan, [facility] [place] [facility] [address] [id number] [place] [address]- 7001 Dec, [facility] [place] [facility] [address] [id number] [place] [address]- 4242 Dec, [facility] [place] [facility] [address] [id number] [place] [address]- 1822 20 Dec, 2012 [facility] [place] [facility] [address] [id number] [place] [address]- 9718 Dec, [facility] [place] [facility] [address] [id number] [place] [address]- 4762 Dec, [facility] [place] [facility] [address] [id number] [place] [address]- 9091 18 Dec, 2012 [facility] [place] [facility] [address] [id number] [place] [address]- 7347 17 Dec, 2012 [facility] [place] [facility] [address] [id number] [place] [address]- 7999 Dec, [facility] [place] [facility] [address] [id number] [place] [address]- 4720 Dec, [facility] [place] [facility] [address] [id number] [place] [address]- 5118 November, [facility] [place] [facility] [address] [id number] [place] [address]- 0742 November, [facility] [place] [facility] [address] [id number] [place] [address]- 2912 Oct, [facility] [place] [facility] [address] [id number] [place] [address]- 6453 Sep, [facility] [place] [facility] [address] [id number] [place] [address]- 4843 Sep, [facility] [place] [facility] [address] [id number] [place] [address]- 4179 15 Sep, 2012 [facility] [place] [facility] [address] [id number] [place] [address]- 7708 Sep, [facility] [place] [facility] [address] [id number] [place] [address]- 8475 Aug, [facility] [place] [facility] [address] [id number] [place] [address]- 2615 Aug, [facility] [address] [facility] [id number], [place] [address]- 2546 Jul, [facility] [address] [facility] [id number], [place] [address]- 2546 Jul, [facility] [address] [facility] [id number], [place] [address]- 2546 Jul, [facility] [address] [facility] [id number][place] [address]- 2546 Sep, [facility] [address] [facility] [id number], [place] [address]- 2546 Sep, [facility] [address] [facility] [id number], [place] [address]- [address]46 Sep, IMMUNIZATIONS No Known Immunizations SOCIAL HISTORY Never Assessed REASON FOR VISIT Oxycodone 30 mg PLAN OF CARE VITAL SIGNS MEDICATIONS Medication [...]
--- OUTSIDE RECORDS SUMMARY | 2018-06-09 17:53 | XMS REPORT ---
Author Author LINDA BENTLEY Organization [facility] Address [address] [place] [address] Care Team Providers Care Building And Grounds Supervisor Name Role Phone LINDA BENTLEY Unavailable PROBLEMS Type Condition ICD9-CM Code [id number] Code Onset Dates Condition Status SNOMED Code Problem Abdominal pain, left lower quadrant R10.32 Active 238885757 Problem Mood disorder F39 Active 94484144 Problem Hypertension, benign I10 Active 12298341 Problem Chronic pain syndrome G89.4 Active 160832327 Problem Attention to urostomy Z43.6 Active 877804949 Problem Anxiety F41.9 Active 82173130 Problem Neuropathy G62.9 Active 360910865 Problem Malignant neoplasm of colon, unspecified part of colon C18.9 Active 928434020 Problem Polyneuropathy G62.9 Active 43350448 Problem Incontinence of feces, unspecified fecal incontinence type R15.9 Active 30918904 Problem Chronic fatigue, unspecified R53.82 Active 983314198 Problem Hydronephrosis with ureteral stricture, not elsewhere classified N13.1 Active 31179588 Problem Primary insomnia F51.01 Active 918092229 Problem 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 071624050 ALLERGIES No Information ENCOUNTERS Encounter Location Date Diagnosis [place] [id number] [place] [address] 58447- 2278 November, Medicare annual wellness visit, initial Z00.00 [place] [id number] [place] [address] 98299- 3409 Oct, Mood disorder F39 ; Attention to urostomy Z43.6 ; Chronic pain syndrome G89.4 and Polyneuropathy G62.9 [place] [address] [place] [id number] [place] [address] 24526- 1878 Sep, Polyneuropathy G62.9 [place] [address] [place] [id number] [place] [address] 92833- 2556 Sep, [facility] [id number] [place] [address] 58597- 5685 Sep, Polyneuropathy G62.9 [facility] [id number] [place] [address] 74171- 3325 Aug, Polyneuropathy G62.9 [facility] [id number] [place] [address] 88500- 5374 Aug, Malignant neoplasm of colon, unspecified part of colon C18.9 and Polyneuropathy G62.9 [facility] [address] [address]25- 9397 Aug, Neuropathy G62.9 and Polyneuropathy G62.9 [facility] [id number] [place] [address] 45127- 0437 Jul, Encounter for drug screening Z02.83 [facility] [id number] [place] [address] 40140- 9178 Jul, Polyneuropathy G62.9 [facility] [id number] [place] [address] 75779- 4989 Jul, [facility] [id number] [place] [address] 51748- 3414 Jul, Neuropathy G62.9 and Anxiety F41.9 [facility] [id number] [place] [address] 40713- 6600 Jul, [facility] [id number] [place] [address] 11066- 2786 Jul, [facility] [id number] [place] [address] 80072- 7535 Jul, [facility] [id number] [place] [address] 37327- 1911 Jul, Polyneuropathy G62.9 [facility] [id number] [address]- 9612 Jul, [facility] [id number] [address]- 7019 Jun, [facility] [id number] [place] [address] 94076- 7538 Jun, [facility] [address] [place] [address] 53211- 7463 Jun, [facility] [address] [place] [id number] [place] [address] 07 Jun, 2017 Encounter for dental examination Z01.20 [facility] [id number] [place] [address] 94832- 6284 Jun, Polyneuropathy G62.9 and Anxiety F41.9 [facility] [id number] [place] [address] 64480- 9104 Jun, [facility] [id number] [address] May, Dental examination Z01.20 [facility] [id number] [place] [address] 92362- 1050 May, Polyneuropathy G62.9 [facility] [id number] [place] [address] 83053- 0532 Apr, Polyneuropathy G62.9 [facility] [id number] [place] [address] 24772- 4902 Apr, Polyneuropathy G62.9 [facility] [id number] [place] [address] 12228- 2750 Apr, Hypertension, benign I10 ; Polyneuropathy G62.9 and Anxiety F41.9 [facility] [address] [address]- 0372 Apr, Primary insomnia F51.01 and Polyneuropathy G62.9 [facility] [address] [place] [address] [id number] [place] [address] 1981 Apr, Primary insomnia F51.01 and Polyneuropathy G62.9 [facility] [id number] [place] [address], [place] [address]- 1779 Mar, Primary insomnia F51.01 [facility] [id number] [place] [address], [place] [address]- 7643 Mar, [facility] [address] [id number] [place] [address], [place] [address]- 7945 Mar, Polyneuropathy G62.9 [facility] [address] [place] [address], [place] [address]- 2659 Feb, Primary insomnia F51.01 [facility] [address] [place] [address], [place] [address]- 6597 Feb, [facility] [address] [id number] [place] [address], [place] [address]- 9825 Feb, [facility] [address] [id number] [place] [address] 76763- 7993 Feb, Polyneuropathy G62.9 [facility] [address] [place] [address], [place] [address]- 9156 Feb, Primary insomnia F51.01 [facility] [address] [place] [address]- 8257 Jan, [facility] [address] [place] [address] 63429- 8196 Jan, [facility] [id number] [place] [address], [place] [address]- 5152 Dec, [facility] [id number] [place] [address], [place] [address]- 2949 Dec, Primary insomnia F51.01 [facility] [address] [place] [address]- 1354 Dec, Primary insomnia F51.01 [facility] [address] [address]- 3484 Dec, [facility] [address] [address]- 6636 Dec, [facility] [address], [place] [address]- 0868 Dec, [facility] [address] [place] [address] 17312- 1630 Dec, [facility] [address] [address]- 0322 November, Primary insomnia F51.01 and Polyneuropathy G62.9 [facility] [id number] [place] [address] 11189- 6091 November, [facility] [id number] [place] [address] 11421- 6616 November, Abdominal pain, left lower quadrant R10.32 [facility] [address], [place] [address]- 3973 November, [facility] [address] [address]- 0650 Oct, [facility] [address] [address]- 7022 Oct, Abdominal pain, left lower quadrant R10.32 ; 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 and Neuropathy G62.9 [facility] [address] [address]- 5273 Oct, [facility] [address] [address]- 8150 Sep, [facility] [address] [id number] [place] [address] [id number] Sep, [facility] [address], [place] [address]- 3587 Sep, [facility] [id number] [address]- 6827 Aug, [facility] [id number] [place] [address] 17751- 0330 Aug, [facility] [id number] [place] [address] 88456- 9342 Aug, Abdominal pain, left lower quadrant R10.32 ; Neuropathy G62.9 and Anxiety F41.9 [facility] [address] [place] [address] Jul, [facility] [id number] [place] [address] 52978- 4740 Jul, [facility] [id number] [place] [address] 15877 -6055 Jul, [facility] [id number] [place] [address] 47526- 1906 Jul, [facility] [id number] [place] [address] 18339- 2128 Jul, [facility] [id number] [place] [address] 13658- 3694 Jun, [facility] [id number] [place] [address] 87951- 2493 May, [facility] [address] [address]- 0469 May, [facility] [id number] [place] [address] 64582- 1515 Apr, [facility] [address] [place] [address] 65049- 4870 Apr, Muscle spasms of both lower extremities M62.838 and Cellulitis, unspecified cellulitis site L03.90 [facility] [address] [address]- 3491 Apr, [facility] [address] [id number] [place] [address] 29633- 6310 23 Mar, 2016 Generalized abdominal pain R10.84 [facility] [address] [place] [address] 57167- 8868 20 Mar, 2015 [facility] [address] [id number] [place] [address] 39638- 9306 14 Mar, 2015 [facility] [id number] [place] [address] 47483- 0571 14 Mar, 2015 [facility] [id number] [place] [address] 74489- 5343 13 Mar, 2015 [facility] [id number] [place] [address] 04274- 9970 12 Mar, 2016 [facility] [address] [id number] [place] [address] 32460- 6599 09 Mar, 2016 [facility] [address] [id number] [place] [address] 67848- 2528 06 Mar, 2016 [facility] [address] [id number] [place] [address] 32542- 5608 Feb, Other specified diseases of anus and rectum K62.89 [facility] [address] [place] [address] 30499- 7276 Feb, [facility] [address] [place] [address] 64341- 2587 Feb, Dizziness R42 [facility] [address] [address]- 2380 Feb, [facility] [address] [place] [address] 65083- 6028 Jan, Polyneuropathy G62.9 [facility] [address], [place] [address]- 7311 Jan, Other specified diseases of anus and rectum K62.89 [facility] [address], [place] [address]- 0821 Jan, [facility] [address] [id number] [place] [address] -2316 16 Jan, 2016 [facility] [address] [facility] [id number] [place] [address]- 8562 Jan, [facility] [address] [facility] [id number] [place] [address]- 6130 Jan, Dizziness R42 [facility] [address] [facility] [id number] [place] [address]- 1121 Dec, [facility] [address] [id number] [place] [address]- 1980 Dec, [facility] [address] [facility] [id number] [place] [address]- 8540 Dec, [facility] [address] [facility] [id number] [place] [address]- 8031 Dec, Dizziness R42 [facility] [address] [facility] [id number] [place] [address]- 8448 November, [facility] [address] [facility] [id number] [place] [address]- 8585 Oct, [facility] [address] [facility] [id number] [place] [address]- 6652 Oct, [facility] [address] [facility] [id number] [place] [address]- 2530 Oct, [facility] [address] [facility] [id number] [place] [address]- 6459 Oct, [facility] [address] [facility] [id number] [place] [address]- 0962 Sep, [facility] [address] [facility] [id number] [place] [address]- 8200 Sep, Primary insomnia F51.01 [facility] [address] [facility] [id number] [place] [address]- 6634 Sep, Primary insomnia F51.01 [facility] [address] [place] [address] 63311- 0516 Sep, [facility] [id number] [place] [address] 78987- 5103 Aug, [facility] [id number] [place] [address] 11197- 7270 Aug, [facility] [id number] [place] [address] 19967- 3053 Aug, Primary insomnia F51.01 ; Mood disorder F39 ; Nausea and vomiting, unspecified intactability, vomiting of unspecified type R11.2 and Diarrhea R19.7 [facility] [id number] [place] [address] 07898- 0179 Aug, [facility] [id number] [place] [address] 09640- 1332 Aug, Folliculitis L73.9 [facility] [address] [place] [address] 82281- 5486 Aug, [facility] [id number] [place] [address] 58314- 2619 Aug, [facility] [address] [place] [address] 50888- 5571 Jul, Folliculitis L73.9 [facility] [id number] [place] [address] 31305- 0575 Jul, [facility] [id number] [place] [address] 09745- 0001 Jun, Folliculitis L73.9 [facility] [address] [place] [address] 16708- 8383 Jun, [facility] [address] [place] [address] 40931- 8674 May, Polyneuropathy G62.9 [facility] [address] [address]- 2676 May, Other specified diseases of anus and rectum K62.89 [facility] [address], [place] [address]- 9918 May, [facility] [address] [place] [address] 45546- 2032 May, Primary insomnia F51.01 [facility] [id number] [place] [address] 27505- 2312 May, [facility] [id number] [place] [address] 42443- 4494 May, [facility] [address] [place] [address] 92172- 0397 Apr, Other specified diseases of anus and rectum K62.89 ; Chronic fatigue R53.82 ; Urinary tract infection, site not specified N39.0 and Enterococcus as the cause of diseases classified elsewhere B95.2 [facility] [address], [place] [address]- 6309 16 Apr, 2015 [facility] [id number] [place] [address] 90098- 7584 15 Apr, 2015 [facility] [address] [place] [address] 70247- 4595 14 Apr, 2015 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 [facility] [address] [address]- 2006 05 Apr, 2015 [facility] [address] [address]- 3007 Mar, [facility] [id number] [place] [address] 90658- 8155 23 Mar, 2015 [facility] [address] [address]- 9325 17 Mar, 2015 [facility] [address] [place] [address] 24158- 2077 14 Mar, 2015 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 [facility] [address], [place] [address]- 4959 12 Mar, 2015 [facility] [address] [place] [address] 85671- 1039 Mar, [facility] [address] [place] [address] 20366- 4042 Mar, [facility] [id number] [place] [address] 25359- 7669 Mar, [facility] [id number] [place] [address] 21180- 8838 Feb, [facility] [id number] [place] [address] 25509- 3998 Feb, [facility] [id number] [place] [address] 27326- 1776 Feb, [facility] [address] [place] [address] 47418- 7531 Jan, [facility] [id number] [place] [address] 89037- 5291 Jan, Nausea 787.02 and Neuropathy 355.9 [facility] [address], [place] [address]- 5368 Jan, [facility] [address] [place] [address] 83803- 1376 Jan, [facility] [address], [place] [address]- 3770 Jan, [facility] [address] [address] Jan, Dental examination V72.2 [facility] [address], [place] [address]- 1827 Jan, [facility] [address] [place] [address] 56596- 7905 Dec, [facility] [address] [id number] [place] [address]- 2175 Dec, [facility] [place] [facility] [address] [facility] [id number] [place] [address]- 4789 Dec, Neuropathy 355.9 [facility] [address] [facility] [id number] [place] [address]- 2526 November, [facility] [place] [facility] [address] [id number] [place] [address]- 4790 November, [facility] [address] [id number] [place] [address]- 1033 November, [facility] [place] [facility] [address] [id number] [place] [address]- 5455 Oct, [facility] [address] [facility] [id number] [place] [address]- 0963 Oct, [facility] [place] [facility] [address] [id number] [place] [address]- 0587 Sep, [facility] [place] [facility] [address] [id number] [place] [address]- 6958 Sep, [facility] [place] [facility] [address] [facility] [id number] [place] [address]- 3832 Sep, [facility] [place] [facility] [address] [facility] [id number] [place] [address]- 2518 Sep, [facility] [place] [facility] [address] [id number] [address] Sep, [facility] [place] [facility] [address] [id number] [place] [address] Sep, [facility] [place] [facility] [address] [facility] [id number] [place] [address] Sep, [facility] [place] [facility] [address] [facility] [id number], [place] [address] Sep, [facility] [place] [facility] [address] [id number] [place] [address] Aug, 2014 [facility] [place] [facility] [address] [id number] [place] [address] Aug, 2014 [facility] [place] [facility] [address] [id number] [place] [address] Aug, 2014 [facility] [place] [facility] [address] [id number] [place] [address] Aug, 2014 [facility] [place] [facility] [address] [id number] [place] [address] Aug, 2014 [facility] [place] [facility] [address] [id number] [place] [address] Aug, 2014 [facility] [place] [facility] [address] [id number] [place] [address] Aug, 2014 [facility] [place] [facility] [address] [id number] [place] [address] Aug, 2014 [facility] [place] [facility] [address] [id number] [place] [address] Jul, [facility] [place] [facility] [address] [facility] [id number] [place] [address] Jul, [facility] [place] [facility] [address] [id number] [place] [address] Jun, [facility] [place] [facility] [address] [id number] [place] [address] Jun, [facility] [place] [facility] [address] [id number] [place] [address] Jun, [facility] [place] [facility] [address] [id number] [place] [address] Jun, [facility] [place] [facility] [address] [id number] [place] [address] Jun, [facility] [place] [facility] [address] [id number] [place] [address] Jun, [facility] [place] [facility] [address] [id number] [place] [address] Jun, [facility] [place] [facility] [address] [id number] [place] [address] Jun, [facility] [place] [facility] [address] [id number] [place] [address] Jun, [facility] [place] [facility] [address] [id number] [place] [address] Jun, [facility] [place] [facility] [address] [id number] [place] [address] Jun, [facility] [place] [facility] [address] [id number] [place] [address] May, [facility] [place] [facility] [address] [id number] [place] [address] May, [facility] [place] [facility] [address] [id number] [place] [address] May, [facility] [place] [facility] [address] [id number] [place] [address] May, [facility] [place] [facility] [address] [facility] [id number] [place] [address] May, [facility] [place] [facility] [address] [id number] [place] [address] May, [facility] [place] [facility] [address] [id number] [address] May, [facility] [place] [facility] [address] [id number] [place] [address] May, [facility] [place] [facility] [address] [id number] [place] [address] May, [facility] [place] [facility] [address] [id number] [place] [address] Apr, [facility] [place] [facility] [address] [id number] [place] [address] Apr, [facility] [place] [facility] [address] [id number] [place] [address] Apr, [facility] [place] [facility] [address] [id number] [place] [address] Apr, [facility] [place] [facility] [address] [id number] [place] [address] Apr, [facility] [place] [facility] [address] [id number] [place] [address] Mar, [facility] [place] [facility] [address] [id number] [place] [address] Mar, [facility] [place] [facility] [address] [id number] [place] [address] Feb, [facility] [place] [facility] [address] [id number] [place] [address] Feb, [facility] [place] [facility] [address] [id number] [place] [address]147 Feb, [facility] [place] [facility] [address] [id number] [place] [address] 9684 Feb, [facility] [place] [facility] [address] [id number] [place] [address] Feb, [facility] [place] [facility] [address] [id number] [place] [address] 4669 Feb, [facility] [place] [facility] [address] [id number] [place] [address] Jan, [facility] [place] [facility] [address] [id number] [place] [address] Jan, [facility] [place] [facility] [address] [id number] [place] [address] Jan, [facility] [place] [facility] [address] [id number] [place] [address] Jan, [facility] [place] [facility] [address] [id number] [place] [address] 33[address] Jan, [facility] [place] [facility] [address] [id number] [place] [address] 1991 Jan, [facility] [place] [facility] [address] [id number] [place] [address] 5265 Jan, [facility] [place] [facility] [address] [id number] [place] [address] Jan, [facility] [place] [facility] [address] [id number] [place] [address] Jan, [facility] [place] [facility] [address] [id number] [place] [address] Jan, [facility] [place] [facility] [address] [id number] [place] [address]- [address] Jan, [facility] [place] [facility] [address] [id number] [place] [address] Dec, [facility] [place] [facility] [address] [id number] [place] [address] Dec, [facility] [place] [facility] [address] [id number] [place] [address] Dec, [facility] [place] [facility] [address] [id number] [place] [address]378 Dec, [facility] [place] [facility] [address] [id number] [place] [address] 4[address] Dec, [facility] [place] [facility] [address] [id number] [place] [address]754 Dec, [facility] [place] [facility] [address] [id number] [place] [address] November, [facility] [place] [facility] [address] [id number] [place] [address] 2804 November, [facility] [place] [facility] [address] [id number] [place] [address] 15 Nov, 2013 [facility] [place] [facility] [address] [id number] [place] [address] November, [facility] [place] [facility] [address] [id number] [place] [address] 9286 November, [facility] [place] [facility] [address] [id number] [place] [address] 46[address] November, [facility] [place] [facility] [address] [id number] [place] [address] Oct, [facility] [place] [facility] [address] [id number] [place] [address]106 Oct, [facility] [place] [facility] [address] [id number] [place] [address]32 Oct, [facility] [place] [facility] [address] [id number] [place] [address] Oct, [facility] [place] [facility] [address] [id number] [place] [address] Sep, [facility] [place] [facility] [address] [id number] [place] [address] 1136 Sep, [facility] [place] [facility] [address] [facility] [id number] [place] [address] 4050 Sep, [facility] [place] [facility] [address] [id number] [place] [address]- 0768 Sep, [facility] [place] [facility] [address] [id number] [place] [address] Sep, [facility] [place] [facility] [address] [id number] [place] [address] 9730 Aug, [facility] [place] [facility] [address] [id number] [place] [address] 7937 Aug, [facility] [place] [facility] [address] [id number] [place] [address]- 1144 Aug, [facility] [address] [id number] [place] [address] 1632 Aug, [facility] [address] [id number] [place] [address] Aug, [facility] [address] [place] [id number] May, [facility] [address] [id number] [place] [address]- 2852 May, [facility] [address] [id number] [place] [address] May, [facility] [address] [id number] [place] [address] May, [facility] [address] [id number] [place] [address] May, [facility] [address] [id number] [place] [address]- 3732 Apr, [facility] [address] [id number] [place] [address] 6963 Apr, [facility] [address] [id number] [place] [address] 0049 Apr, [facility] [address] [id number] [place] [address]- [address]138 Apr, [facility] [address] [id number] [address] Apr, [facility] [address] [id number] [place] [address]- 6750 Apr, [facility] [address] [id number] [place] [address]- 8866 Apr, [facility] [address] [id number] [place] [address]- 7621 Mar, [facility] [address] [id number] [place] [address]- 5374 25 Mar, 2013 [facility] [place] [facility] [address] [id number] [place] [address]- 1415 24 Mar, 2013 [facility] [place] [facility] [address] [id number] [place] [address]- [address] 16 Mar, 2013 [facility] [place] [facility] [address] [id number] [place] [address]- 2662 Mar, [facility] [place] [facility] [address] [id number] [place] [address]- 5477 Mar, [facility] [place] [facility] [address] [id number] [place] [address]- 9882 Feb, [facility] [place] [facility] [address] [id number] [place] [address]- 3655 Feb, [facility] [place] [facility] [address] [id number] [place] [address]- 1944 Feb, [facility] [place] [facility] [address] [id number] [place] [address]- 8252 Feb, [facility] [place] [facility] [address] [id number] [place] [address]- 1404 Feb, [facility] [place] [facility] [address] [id number] [place] [address]- 7743 Feb, [facility] [place] [facility] [address] [id number] [place] [address]- 1524 Jan, [facility] [place] [facility] [address] [id number] [place] [address]- 7480 Dec, [facility] [place] [facility] [address] [id number] [place] [address]- 9907 Dec, [facility] [place] [facility] [address] [id number] [place] [address]- 6964 Dec, [facility] [place] [facility] [address] [id number] [place] [address]- 0094 Dec, [facility] [place] [facility] [address] [id number] [place] [address]- 6154 19 Dec, 2012 [facility] [address] [id number] [place] [address]- 3765 18 Dec, 2012 [facility] [address] [id number] [place] [address]- [address]362 17 Dec, 2012 [facility] [address] [id number] [place] [address]- 1869 Dec, [facility] [address] [id number] [place] [address]- 1641 Dec, [facility] [address] [id number] [place] [address]- 3542 November, [facility] [address] [id number] [place] [address]- 0056 November, [facility] [address] [id number] [place] [address]- 5070 Oct, [facility] [address] [id number] [place] [address]- 9485 Sep, [facility] [address] [id number] [place] [address]- 1268 Sep, [facility] [address] [id number] [place] [address]- 9756 Sep, [facility] [address] [id number] [place] [address]- 5098 Sep, [facility] [address] [id number] [place] [address]- 3081 Aug, [facility] [address] [id number] [place] [address]- 3961 Aug, [facility] [address] [id number] [place] [address]- 8196 Jul, [facility] [address] [id number] [place] [address]- 4520 Jul, [facility] [address] [facility] [id number], [place] [address] Jul, [facility] [address] [facility] [id number], [place] [address]- [address]686 Sep, [facility] [address] [facility] [id number], [place] [address]- [address] Sep, [facility] [address] [facility] [id number], [place] [address]- [address] Sep, IMMUNIZATIONS No Known Immunizations SOCIAL HISTORY Never Assessed REASON FOR VISIT Controlled Med Refill02/10 PLAN OF CARE VITAL SIGNS MEDICATIONS Medication [...]
--- OUTSIDE RECORDS SUMMARY | 2018-06-09 17:54 | XMS REPORT ---
Author Author LINDA BENTLEY Organization [facility] Address [address] [place] [address] Care Team Providers Care Project Structural Engineer Name Role Phone LINDA BENTLEY Unavailable PROBLEMS Type Condition ICD9-CM Code XAF92-FR Code Onset Dates Condition Status SNOMED Code Problem Abdominal pain, left lower quadrant R10.32 Active 940026706 Problem Mood disorder F39 Active 13665247 Problem Hypertension, benign I10 Active 01295006 Problem Chronic pain syndrome G89.4 Active 848105738 Problem Attention to urostomy Z43.6 Active 992241616 Problem Anxiety F41.9 Active 07926425 Problem Neuropathy G62.9 Active 361113824 Problem Malignant neoplasm of colon, unspecified part of colon C18.9 Active 108079998 Problem Polyneuropathy G62.9 Active 29198146 Problem Incontinence of feces, unspecified fecal incontinence type R15.9 Active 62488455 Problem Chronic fatigue, unspecified R53.82 Active 613874761 Problem Hydronephrosis with ureteral stricture, not elsewhere classified N13.1 Active 02796170 Problem Primary insomnia F51.01 Active 244990611 Problem 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 121048856 ALLERGIES No Information ENCOUNTERS Encounter Location Date Diagnosis [place] [id number] [place] [address] 55015- 9060 November, Medicare annual wellness visit, initial Z00.00 [place] [id number] [address] 8199 Oct, [place] [id number] [place] [address] 24812- 9532 Oct, [place] [id number] [address] 3241 Oct, Mood disorder F39 ; Attention to urostomy Z43.6 ; Chronic pain syndrome G89.4 and Polyneuropathy G62.9 [facility] [id number] [place] [address] 27835- 1071 Sep, Polyneuropathy G62.9 [facility] [id number] [place] [address] 55059- 8536 Sep, [facility] [id number] [place] [address] 79877- 4547 Sep, Polyneuropathy G62.9 [facility] [id number] [place] [address] 32109- 6772 Aug, Polyneuropathy G62.9 [facility] [id number] [place] [address] 84157- 0977 Aug, Malignant neoplasm of colon, unspecified part of colon C18.9 and Polyneuropathy G62.9 [facility] [id number] [place] [address] 46481- 7039 Aug, Neuropathy G62.9 and Polyneuropathy G62.9 [facility] [id number] [place] [address] 22455- 6605 Jul, Encounter for drug screening Z02.83 [facility] [id number] [place] [address] 69390- 5790 Jul, Polyneuropathy G62.9 [facility] [id number] [place] [address] 41945- 3918 Jul, [facility] [id number] [place] [address] 18523- 3041 Jul, Neuropathy G62.9 and Anxiety F41.9 [facility] [id number] [place] [address] 67178- 3650 Jul, [facility] [id number] [place] [address] 44055- 1346 Jul, [facility] [id number] [place] [address] 98269- 4206 Jul, [facility] [address], [place] [address]- 6122 Jul, Polyneuropathy G62.9 [facility] [address], [place] [address]- 9728 Jul, [facility] [address], [place] [address]- 1441 Jun, [facility] [address], [place] [address]- 1042 Jun, [facility] [id number] [place] [address] 54305- 4934 Jun, [facility] [id number] [address] 07 Jun, 2017 Encounter for dental examination Z01.20 [facility] [address], [place] [address]- 6216 04 Jun, 2017 Polyneuropathy G62.9 and Anxiety F41.9 [facility] [address], [place] [address] 1848 Jun, [facility] [id number] [address] May, Dental examination Z01.20 [facility] [address], [place] [address]- 3768 May, Polyneuropathy G62.9 [facility] [address], [place] [address]- 9130 Apr, Polyneuropathy G62.9 [facility] [address], [place] [address]- 3390 Apr, Polyneuropathy G62.9 [facility] [address], [place] [address]- 2161 Apr, Hypertension, benign I10 ; Polyneuropathy G62.9 and Anxiety F41.9 [facility] [id number] [place] [address] 83384- 6555 Apr, Primary insomnia F51.01 and Polyneuropathy G62.9 [facility] [id number] [place] [address] 28271- 6479 Apr, Primary insomnia F51.01 and Polyneuropathy G62.9 [facility] [id number] [place] [address] 42451- 3642 Mar, Primary insomnia F51.01 [facility] [id number] [place] [address] 42132- 2129 Mar, [facility] [id number] [place] [address] 71364- 6426 Mar, Polyneuropathy G62.9 [facility] [id number] [place] [address] 85016- 7131 Feb, Primary insomnia F51.01 [facility] [id number] [place] [address] 94715- 4144 Feb, [facility] [id number] [place] [address] 38934- 2990 Feb, [facility] [id number] [place] [address] 11201- 9926 Feb, Polyneuropathy G62.9 [facility] [id number] [place] [address] 02314- 8927 Feb, Primary insomnia F51.01 [facility] [id number] [place] [address] 31958- 2395 Jan, [facility] [id number] [place] [address] 93311- 0682 Jan, [facility] [id number] [place] [address] 74013- 2706 Dec, [facility] [id number] [place] [address] 03812- 3235 Dec, Primary insomnia F51.01 [facility] [address], [place] [address]- 1456 Dec, Primary insomnia F51.01 [facility] [id number] [address]- 2122 Dec, [facility] [id number] [place] [address] 24785- 5265 Dec, [facility] [id number] [place] [address] 04307- 1336 Dec, [facility] [id number] [place] [address] 69413- 9315 Dec, [facility] [id number] [place] [address] 39185- 3020 November, Primary insomnia F51.01 and Polyneuropathy G62.9 [facility] [id number] [place] [address] 22987- 5025 November, [facility] [id number] [place] [address] 25225- 8621 November, Abdominal pain, left lower quadrant R10.32 [facility] [address], [place] [address]- 0003 November, [facility] [address], [place] [address]- 4647 Oct, [facility] [address], [place] [address]- 5930 Oct, Abdominal pain, left lower quadrant R10.32 ; 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 and Neuropathy G62.9 [facility] [address], [place] [address]- 9033 Oct, [facility] [address], [place] [address]- 1165 Sep, [facility] [id number] [address] Sep, [facility] [id number] [place] [address] 24842- 7276 Sep, [facility] [id number] [place] [address] 84575- 3318 Aug, [facility] [id number] [place] [address] 99620- 3363 Aug, [facility] [id number] [place] [address] 369420- 5456 Aug, Abdominal pain, left lower quadrant R10.32 ; Neuropathy G62.9 and Anxiety F41.9 [facility] [address] [place] [address] Jul, [facility] [id number] [place] [address] 31291- 7489 Jul, [facility] [id number] [place] [address] 07509 -3374 Jul, [facility] [id number] [place] [address] 57789- 3421 Jul, [facility] [address] [address]- 8693 Jul, [facility] [address], [place] [address]- 4822 Jun, [facility] [id number], [place] [address]- 8250 May, [facility] [id number], [place] [address]- 3189 May, [facility] [address], [place] [address]- 7045 Apr, [facility] [address], [place] [address]- 0764 Apr, Muscle spasms of both lower extremities M62.838 and Cellulitis, unspecified cellulitis site L03.90 [facility] [id number] [place] [address] 77140- 6731 07 Apr, 2016 [facility] [id number] [place] [address] 71178- 7357 23 Mar, 2016 Generalized abdominal pain R10.84 [facility] [id number] [place] [address] 42881- 7855 20 Mar, 2016 [facility] [id number] [place] [address] 72726- 5904 14 Mar, 2016 [facility] [id number] [place] [address] 01559- 4485 14 Mar, 2016 [facility] [id number] [place] [address] 44837- 8216 13 Mar, 2016 [facility] [id number] [place] [address] 66451- 5852 12 Mar, 2016 [facility] [id number] [place] [address] 13656- 1228 09 Mar, 2016 [facility] [id number] [place] [address] 18150- 8257 06 Mar, 2016 [facility] [id number] [place] [address] 47816- 3866 17 Feb, 2016 Other specified diseases of anus and rectum K62.89 [facility] [id number] [place] [address] 57295- 3383 Feb, [facility] [id number] [place] [address] 31185- 5036 Feb, Dizziness R42 [facility] [id number] [place] [address] 88150- 9039 08 Feb, 2016 [facility] [id number] [place] [address] 33452- 7345 Jan, Polyneuropathy G62.9 [facility] [id number] [place] [address]- 3736 Jan, Other specified diseases of anus and rectum K62.89 [facility] [address] [id number] [place] [address]- 3862 Jan, [facility] [address] [id number] [place] [address] -7874 Jan, [facility] [address] [id number] [place] [address]- 1046 Jan, [facility] [address] [id number] [place] [address]- 3727 Jan, Dizziness R42 [facility] [address] [id number] [place] [address]- 8720 Dec, [facility] [address] [id number] [place] [address]- 4576 Dec, [facility] [address] [id number] [place] [address]- 4406 Dec, [facility] [address] [id number] [place] [address]- 6621 Dec, Dizziness R42 [facility] [address] [id number] [place] [address]- 7982 November, [facility] [address] [id number] [place] [address]- 4763 Oct, [facility] [address] [id number] [place] [address]- 0804 Oct, [facility] [address] [id number] [place] [address]- 9822 Oct, [facility] [address] [id number] [place] [address]- 1059 Oct, [facility] [address] [id number] [place] [address]- 2165 Sep, [facility] [address] [address]- 1383 14 Sep, 2015 Primary insomnia F51.01 [facility] [id number] [place] [address] 20619- 2492 Sep, Primary insomnia F51.01 [facility] [id number] [place] [address] 22532- 0837 Sep, [facility] [id number] [place] [address] 16148- 0581 Aug, [facility] [id number] [place] [address] 53964- 2339 Aug, [facility] [id number] [place] [address] 61596- 9990 Aug, Primary insomnia F51.01 ; Mood disorder F39 ; Nausea and vomiting, unspecified intactability, vomiting of unspecified type R11.2 and Diarrhea R19.7 [facility] [id number] [place] [address] 89586- 6990 Aug, [facility] [id number] [place] [address] 23681- 6202 Aug, Folliculitis L73.9 [facility] [id number] [place] [address] 10392- 7519 Aug, [facility] [id number] [place] [address] 08670- 2647 Aug, [facility] [id number] [place] [address] 17079- 6709 Jul, Folliculitis L73.9 [facility] [id number] [place] [address] 15497- 3586 Jul, [facility] [id number] [place] [address] 34763- 3607 Jun, Folliculitis L73.9 [facility] [id number] [place] [address] 21823- 8656 Jun, [facility] [id number] [place] [address] 16586- 1338 May, Polyneuropathy G62.9 [facility] [id number] [place] [address] 72199- 4571 May, Other specified diseases of anus and rectum K62.89 [facility] [id number] [place] [address] 69492- 9601 May, [facility] [id number] [place] [address] 38100- 5167 May, Primary insomnia F51.01 [facility] [id number] [place] [address] 23207- 8920 May, [facility] [id number] [place] [address] 63517- 0915 May, [facility] [id number] [place] [address] 64612- 5068 Apr, Other specified diseases of anus and rectum K62.89 ; Chronic fatigue R53.82 ; Urinary tract infection, site not specified N39.0 and Enterococcus as the cause of diseases classified elsewhere B95.2 [facility] [address], [place] [address]- 4859 16 Apr, 2015 [facility] [id number] [place] [address] 11462- 1578 Apr, [facility] [id number] [place] [address] 22031- 7192 14 Apr, 2015 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 [facility] [id number] [place] [address] 39963- 5086 05 Apr, 2015 [facility] [id number] [place] [address] 21683- 7789 Mar, [facility] [id number] [place] [address] 27860- 6824 23 Mar, 2015 [facility] [address] [facility] [id number] [place] [address]- 8573 17 Mar, 2015 [facility] [address], [place] [address]- 2541 14 Mar, 2015 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 [facility] [address] [facility] [id number] [address]- 3466 12 Mar, 2015 [facility] [address] [facility] [id number] [address]- 7358 11 Mar, 2015 [facility] [address] [facility] [id number] [place] [address] 89144- 2629 11 Mar, 2015 [facility] [address], [place] [address]- 7049 10 Mar, 2015 [facility] [id number] [place] [address] 93091- 5794 Feb, [facility] [address], [place] [address]- 4121 Feb, [facility] [address], [place] [address]- 7797 Feb, [facility] [address], [place] [address]- 7401 30 Jan, 2015 [facility] [id number], [place] [address]- 2684 27 Jan, 2015 Nausea 787.02 and Neuropathy 355.9 [facility] [id number] [address]- 4872 Jan, [facility] [address], [place] [address]- 2196 Jan, [facility] [address] [id number] [address]- 2544 16 Jan, 2015 [facility] [id number] [address] Jan, Dental examination V72.2 [facility] [address] [id number] [place] [address]- 8906 Jan, [facility] [address] [id number] [address]- 0476 Dec, [facility] [address] [facility] [id number], [place] [address]- 7026 Dec, [facility] [place] [facility] [address] [facility] [id number][place] [address]- 8406 Dec, Neuropathy 355.9 [facility] [address] [facility] [id number], [place] [address]- 1906 November, [facility] [address] [facility] [id number][place] [address]- 4416 November, [facility] [address] [facility] [id number] [address]- 4506 November, [facility] [address] [facility] [id number], [place] [address]- 0682 Oct, [facility] [address] [facility] [id number], [place] [address]- 1486 Oct, [facility] [address] [facility] [id number][place] [address]- 3376 Sep, [facility] [place] [facility] [address] [facility] [id number], [place] [address]- 6646 Sep, [facility] [place] [facility] [address] [facility] [id number], [place] [address]- 2546 Sep, [facility] [place] [facility] [address] [facility] [id number], [place] [address]- 2106 Sep, [facility] [place] [facility] [address] [facility] [id number] [address] Sep, [facility] [place] [facility] [address] [facility] [id number], [place] [address] Sep, [facility] [place] [facility] [address] [id number] [place] [address] Sep, [facility] [place] [facility] [address] [id number] [place] [address] Sep, [facility] [place] [facility] [address] [id number] [place] [address] Aug, 2014 [facility] [place] [facility] [address] [id number] [place] [address] Aug, 2014 [facility] [place] [facility] [address] [id number] [place] [address] Aug, 2014 [facility] [place] [facility] [address] [id number] [place] [address] Aug, 2014 [facility] [place] [facility] [address] [facility] [id number] [place] [address] Aug, 2014 [facility] [place] [facility] [address] [id number] [place] [address] Aug, 2014 [facility] [place] [facility] [address] [id number] [place] [address] Aug, 2014 [facility] [place] [facility] [address] [facility] [id number] [place] [address] Aug, [facility] [place] [facility] [address] [facility] [id number] [place] [address] Jul, [facility] [place] [facility] [address] [id number] [place] [address] Jul, [facility] [place] [facility] [address] [id number] [place] [address] Jun, [facility] [place] [facility] [address] [id number] [place] [address]- [address] Jun, [facility] [place] [facility] [address] [facility] [id number] [id number] [address] Jun, [facility] [place] [facility] [address] [id number] [place] [address] Jun, [facility] [place] [facility] [address] [id number] [place] [address]- [address] Jun, [facility] [place] [facility] [address] [id number] [place] [address]- [address] Jun, [facility] [place] [facility] [address] [id number] [place] [address]- [address] Jun, [facility] [place] [facility] [address] [id number] [place] [address] Jun, [facility] [place] [facility] [address] [id number] [place] [address] Jun, [facility] [place] [facility] [address] [id number] [place] [address]- [address] Jun, [facility] [place] [facility] [address] [id number] [place] [address]- [address] Jun, [facility] [place] [facility] [address] [id number] [place] [address] May, [facility] [place] [facility] [address] [id number] [place] [address] May, [facility] [place] [facility] [address] [id number] [place] [address] May, [facility] [place] [facility] [address] [id number] [place] [address]- [address] May, [facility] [place] [facility] [address] [id number], [place] [address] May, [facility] [place] [facility] [address] [id number] [place] [address]- [address] May, [facility] [place] [facility] [address] [id number] [place] [address] May, [facility] [place] [facility] [address] [id number] [place] [address] May, [facility] [place] [facility] [address] [id number] [place] [address] May, [facility] [place] [facility] [address] [id number] [place] [address] Apr, [facility] [place] [facility] [address] [id number] [place] [address] Apr, [facility] [place] [facility] [address] [id number] [place] [address] Apr, [facility] [place] [facility] [address] [id number] [place] [address] Apr, [facility] [place] [facility] [address] [id number] [place] [address] Apr, [facility] [place] [facility] [address] [id number] [place] [address] Mar, [facility] [place] [facility] [address] [id number] [place] [address] 74[address] Mar, [facility] [place] [facility] [address] [id number] [place] [address] Feb, [facility] [place] [facility] [address] [id number] [place] [address]- [address] Feb, [facility] [place] [facility] [address] [id number] [place] [address]- [address]28 Feb, [facility] [place] [facility] [address] [id number] [place] [address]- 1883 Feb, [facility] [place] [facility] [address] [id number] [place] [address]- 57[address] Feb, [facility] [place] [facility] [address] [id number] [place] [address] Feb, [facility] [place] [facility] [address] [id number] [place] [address]- 90[address] Jan, [facility] [place] [facility] [address] [id number] [place] [address] Jan, [facility] [place] [facility] [address] [id number] [place] [address]- 1018 Jan, [facility] [place] [facility] [address] [id number] [place] [address]- 9077 Jan, [facility] [place] [facility] [address] [id number] [place] [address]- 0256 Jan, [facility] [place] [facility] [address] [id number] [place] [address]- [address]9 Jan, [facility] [place] [facility] [address] [id number] [place] [address]- 0784 Jan, [facility] [place] [facility] [address] [id number] [place] [address]- [address] Jan, [facility] [place] [facility] [address] [id number] [place] [address]- [address]41 Jan, [facility] [place] [facility] [address] [id number] [place] [address]- 1799 Jan, [facility] [place] [facility] [address] [id number] [place] [address]- 8162 Jan, [facility] [place] [facility] [address] [id number] [place] [address]- 0[address] Dec, [facility] [place] [facility] [address] [id number] [place] [address]- 6918 Dec, [facility] [place] [facility] [address] [id number] [place] [address]- 5799 Dec, [facility] [place] [facility] [address] [id number] [place] [address]- 5947 Dec, [facility] [place] [facility] [address] [id number] [place] [address]- 7023 Dec, [facility] [place] [facility] [address] [id number] [place] [address]- 7324 Dec, [facility] [place] [facility] [address] [id number] [place] [address]- 6496 November, [facility] [address] [id number] [place] [address]- 5434 November, [facility] [place] [facility] [address] [id number] [place] [address]- 2672 November, [facility] [address] [id number] [place] [address]- 4191 November, [facility] [place] [facility] [address] [id number] [place] [address]- 0438 November, [facility] [place] [facility] [address] [id number] [place] [address]- 4073 November, [facility] [place] [facility] [address] [id number] [place] [address]- 269[address] Oct, [facility] [place] [facility] [address] [id number] [place] [address]- 6318 Oct, [facility] [address] [id number] [place] [address]- 7431 Oct, [facility] [place] [facility] [address] [id number] [place] [address]- [address] Oct, [facility] [address] [id number] [place] [address]- 9263 Sep, [facility] [place] [facility] [address] [id number] [place] [address]- 5127 Sep, [facility] [place] [facility] [address] [id number] [place] [address]- 9018 Sep, [facility] [place] [facility] [address] [id number] [place] [address]- 8036 Sep, [facility] [place] [facility] [address] [id number] [place] [address] Sep, [facility] [place] [facility] [address] [id number] [place] [address]- 5675 Aug, [facility] [address] [id number] [place] [address]- 8531 Aug, [facility] [address] [id number] [place] [address]- 4055 Aug, [facility] [address] [id number] [place] [address]- 6339 Aug, [facility] [address] [id number] [place] [address]- 49[address] Aug, [facility] [address] [place] [id number] May, [facility] [address] [id number] [place] [address]- 3879 May, [facility] [address] [id number] [place] [address]- 3418 May, [facility] [address] [id number] [place] [address]- [address]647 May, [facility] [address] [id number] [place] [address]- 2571 May, [facility] [address] [id number] [place] [address]- 8649 Apr, [facility] [address] [id number] [place] [address]- 6726 Apr, [facility] [address] [id number], [place] [address] Apr, [facility] [address] [id number] [place] [address]- 4800 Apr, [facility] [address] [id number] [place] [address]- 3126 Apr, [facility] [address] [id number] [place] [address]- 6769 Apr, [facility] [address] [id number], [place] [address]- [address]16 Apr, [facility] [place] [facility] [address] [id number] [place] [address]- 7750 28 Mar, 2013 [facility] [place] [facility] [address] [id number] [place] [address]- 5862 Mar, [facility] [place] [facility] [address] [id number] [place] [address]- 0549 24 Mar, 2013 [facility] [place] [facility] [address] [id number] [place] [address]- 3306 16 Mar, 2013 [facility] [place] [facility] [address] [id number] [place] [address]- 9635 Mar, [facility] [place] [facility] [address] [id number] [place] [address]- 6197 Mar, [facility] [place] [facility] [address] [id number] [place] [address]- 9972 Feb, [facility] [place] [facility] [address] [id number] [place] [address]- 9794 Feb, [facility] [place] [facility] [address] [id number] [place] [address]- 2709 Feb, [facility] [place] [facility] [address] [id number] [place] [address]- 2835 Feb, [facility] [place] [facility] [address] [id number] [place] [address]- 0366 Feb, [facility] [place] [facility] [address] [id number] [place] [address]- 1916 Feb, [facility] [place] [facility] [address] [id number] [place] [address]- 1606 Jan, [facility] [place] [facility] [address] [id number] [place] [address]- 8766 Dec, [facility] [place] [facility] [address] [id number] [place] [address]- 9176 Dec, [facility] [place] [facility] [address] [id number] [place] [address]- 0565 20 Dec, 2012 [facility] [address] [id number] [place] [address]- 1932 Dec, [facility] [address] [id number] [place] [address]- 2278 19 Dec, 2012 [facility] [address] [id number] [place] [address]- 8706 18 Dec, 2012 [facility] [address] [id number] [place] [address]- 4625 17 Dec, 2012 [facility] [address] [id number] [place] [address]- 8899 Dec, [facility] [address] [id number] [place] [address]- 2254 Dec, [facility] [address] [id number] [place] [address]- 5862 November, [facility] [address] [id number] [place] [address]- 1579 November, [facility] [address] [id number] [place] [address]- 7299 Oct, [facility] [address] [facility] [id number] [place] [address]- 1115 Sep, [facility] [place] [facility] [address] [id number] [place] [address]- 4284 Sep, [facility] [address] [id number] [place] [address]- 4075 15 Sep, 2012 [facility] [place] [facility] [address] [id number] [place] [address]- 1151 Sep, [facility] [address] [id number] [place] [address]- 3825 Aug, [facility] [address] [id number] [place] [address]- 2527 Aug, [facility] [address] [facility] [id number], [place] [address]- [address] Jul, [facility] [address] [facility] [id number], [place] [address]- 7206 Jul, [facility] [address] [facility] [id number], [place] [address]- 1126 Jul, [facility] [address] [id number], [place] [address]- [address]326 Sep, [facility] [address] [facility] [id number], [place] [address]- 5826 Sep, [facility] [address] [facility] [id number], [place] [address]- 1046 Sep, IMMUNIZATIONS No Known Immunizations SOCIAL HISTORY Never Assessed REASON FOR VISIT Controlled refill Request PLAN OF CARE VITAL SIGNS MEDICATIONS Medication [...]
--- OUTSIDE RECORDS SUMMARY | 2018-06-09 17:55 | XMS REPORT ---
Author Author LINDA BENTELY Organization [facility] Address [address] [place] [address] Care Team Providers Care Plugger Name Role Phone LINDA BENTLEY Unavailable PROBLEMS Type Condition ICD9-CM Code [id number] Code Onset Dates Condition Status SNOMED Code Problem Abdominal pain, left lower quadrant R10.32 Active 056255123 Problem Mood disorder F39 Active 67651647 Problem Hypertension, benign I10 Active 92208532 Problem Chronic pain syndrome G89.4 Active 280009169 Problem Attention to urostomy Z43.6 Active 754562326 Problem Anxiety F41.9 Active 34230160 Problem Neuropathy G62.9 Active 820551829 Problem Malignant neoplasm of colon, unspecified part of colon C18.9 Active 831295248 Problem Polyneuropathy G62.9 Active 72590184 Problem Incontinence of feces, unspecified fecal incontinence type R15.9 Active 52517032 Problem Chronic fatigue, unspecified R53.82 Active 735749224 Problem Hydronephrosis with ureteral stricture, not elsewhere classified N13.1 Active 68329986 Problem Primary insomnia F51.01 Active 417978763 Problem 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 540062460 ALLERGIES Substance Reaction Event Type Date Status Morphine Unknown Drug Allergy Feb, Active Codeine Unknown Drug Allergy Feb, Active ENCOUNTERS Encounter Location Date Diagnosis [facility] [address], [place] [address] November, Medicare annual wellness visit, initial Z00.00 [facility] [address], [place] [address] Oct, Polyneuropathy G62.9 [facility] [address], [place] [address] Oct, [facility] [id number] [place] [address] 74029- 3555 Oct, [facility] [id number] [place] [address] 83783- 4401 Oct, Mood disorder F39 ; Attention to urostomy Z43.6 ; Chronic pain syndrome G89.4 and Polyneuropathy G62.9 [facility] [id number] [place] [address] 50017- 9585 Sep, Polyneuropathy G62.9 [facility] [id number] [place] [address] 85613- 2200 Sep, [facility] [address] [address]- 7507 Sep, Polyneuropathy G62.9 [facility] [id number] [place] [address] 71472- 0103 Aug, Polyneuropathy G62.9 [facility] [id number] [place] [address] 26941- 6310 Aug, Malignant neoplasm of colon, unspecified part of colon C18.9 and Polyneuropathy G62.9 [facility] [id number] [place] [address] 84935- 2749 Aug, Neuropathy G62.9 and Polyneuropathy G62.9 [facility] [id number] [place] [address] 23610- 8550 Jul, Encounter for drug screening Z02.83 [facility] [id number] [place] [address] 45884- 5082 Jul, Polyneuropathy G62.9 [facility] [id number] [place] [address] 77317- 6014 Jul, [facility] [id number] [place] [address] 91580- 3386 Jul, Neuropathy G62.9 and Anxiety F41.9 [facility] [address] 9[address]07- 1109 Jul, [facility] [address], [place] [address] 6[address] Jul, [facility] [id number] [address] 5221 Jul, [facility] [address], [place] [address] 8950 Jul, Polyneuropathy G62.9 [facility] [id number] [place] [address] 02924- 6398 Jul, [facility] [id number] [place] [address] 38276- 0093 Jun, [facility] [id number] [place] [address] 48470- 9645 Jun, [facility] [id number] [place] [address] 28891- 6022 Jun, [facility] [id number] [place] [address] 07 Jun, 2017 Encounter for dental examination Z01.20 [facility] [id number] [place] [address] 55582- 5561 Jun, Polyneuropathy G62.9 and Anxiety F41.9 [facility] [address], [place] [address] Jun, [facility] [id number] [address] May, Dental examination Z01.20 [facility] [id number] [place] [address] 25184- 5425 06 May, 2017 Polyneuropathy G62.9 [facility] [address], [place] [address] 3312 Apr, Polyneuropathy G62.9 [facility] [id number] [place] [address] 68544- 9261 Apr, Polyneuropathy G62.9 [facility] [id number] [place] [address] 04352- 0877 Apr, Hypertension, benign I10 ; Polyneuropathy G62.9 and Anxiety F41.9 [facility] [id number] [place] [address] 08493- 8590 Apr, Primary insomnia F51.01 and Polyneuropathy G62.9 [facility] [address] 16285- 0813 Apr, Primary insomnia F51.01 and Polyneuropathy G62.9 [facility] [address] 83237- 2101 Mar, Primary insomnia F51.01 [facility] [id number] [place] [address] 27320- 9132 Mar, [facility] [address] [address]- 2046 Mar, Polyneuropathy G62.9 [facility] [id number] [place] [address] 05351- 3179 Feb, Primary insomnia F51.01 [facility] [id number] [place] [address] 77195- 4445 Feb, [facility] [id number] [place] [address] 62604- 4170 Feb, [facility] [id number] [place] [address] 48057- 4274 Feb, Polyneuropathy G62.9 [facility] [id number] [place] [address] 69004- 7108 Feb, Primary insomnia F51.01 [facility] [id number] [place] [address] 80149- 1792 Jan, [facility] [address] 69048- 6701 Jan, [facility] [address], [place] [address]- 4524 Dec, [facility] [address], [place] [address] 7516 Dec, Primary insomnia F51.01 [facility] [address], [place] [address]- 4[address] Dec, Primary insomnia F51.01 [facility] [address] [place] [address]- 1717 Dec, [facility] [id number] [place] [address] 65674- 9113 Dec, [facility] [address], [place] [address]- 1195 Dec, [facility] [address], [place] [address]- 4320 Dec, [facility] [address], [place] [address]- 4410 November, Primary insomnia F51.01 and Polyneuropathy G62.9 [facility] [address], [place] [address]- 6260 November, [facility] [address], [place] [address]- 0763 November, Abdominal pain, left lower quadrant R10.32 [facility] [address], [place] [address]- 1834 November, [facility] [address], [place] [address]- 4610 Oct, [facility] [address], [place] [address]- 6670 Oct, Abdominal pain, left lower quadrant R10.32 ; 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 and Neuropathy G62.9 [facility] [address], [place] [address]- 5651 Oct, [facility] [id number] [place] [address] 38291- 0587 Sep, [facility] [id number] [place] [address] [id number] Sep, [facility] [id number] [place] [address] 60575- 5584 Sep, [facility] [id number] [place] [address] 17814- 7963 Aug, [facility] [id number] [place] [address] 43745- 9581 Aug, [facility] [id number] [place] [address] 49186- 3903 Aug, Abdominal pain, left lower quadrant R10.32 ; Neuropathy G62.9 and Anxiety F41.9 [facility] [address] [place] [address] Jul, [facility] [id number] [place] [address] 18339- 5391 Jul, [facility] [address], [place] [address]6407 Jul, [facility] [address], [place] [address]- 8933 Jul, [facility] [address], [place] [address]- 2562 Jul, [facility] [address], [place] [address]- 0544 Jun, [facility] [id number] [place] [address] 25061- 3865 May, [facility] [address], [place] [address]- 9803 May, [facility] [id number] [place] [address] 34011- 2155 Apr, [facility] [id number] [place] [address] 01702- 9552 Apr, Muscle spasms of both lower extremities M62.838 and Cellulitis, unspecified cellulitis site L03.90 [facility] [id number] [place] [address] 26558- 4548 Apr, [facility] [id number] [place] [address] 44284- 0515 23 Mar, 2016 Generalized abdominal pain R10.84 [facility] [id number] [place] [address] 37965- 7522 20 Mar, 2016 [facility] [id number] [place] [address] 68415- 5003 14 Mar, 2016 [facility] [id number] [place] [address] 49660- 4241 14 Mar, 2016 [facility] [id number] [place] [address] 92591- 4716 13 Mar, 2016 [facility] [id number] [place] [address] 04606- 8780 12 Mar, 2016 [facility] [id number] [place] [address] 96866- 7726 09 Mar, 2016 [facility] [id number] [place] [address] 41941- 1575 06 Mar, 2016 [facility] [id number] [place] [address] 90210- 7753 17 Feb, 2016 Other specified diseases of anus and rectum K62.89 [facility] [id number] [place] [address] 34546- 7007 15 Feb, 2016 [facility] [id number] [place] [address] 54624- 0511 09 Feb, 2016 Dizziness R42 [facility] [id number] [place] [address] 55265- 1057 Feb, [facility] [address] [facility] [id number] [place] [address]- 6277 Jan, Polyneuropathy G62.9 [facility] [address] [facility] [id number], [place] [address]- 4089 Jan, Other specified diseases of anus and rectum K62.89 [facility] [address] [facility] [id number], [place] [address]- 0872 Jan, [facility] [address] [facility] [id number] [place] [address] Jan, [facility] [id number] [address]- 9621 Jan, [facility] [address] [place] [address]- 8170 Jan, Dizziness R42 [facility] [address], [place] [address]- 9948 Dec, [facility] [id number] [place] [address]- 2094 Dec, [facility] [address], [place] [address]- 2028 Dec, [facility] [address], [place] [address]- 1799 Dec, Dizziness R42 [facility] [address], [place] [address]- 5157 November, [facility] [address] [facility] [id number] [place] [address]- 4904 Oct, [facility] [address] [facility] [id number], [place] [address]- 9024 Oct, [facility] [id number], [place] [address]- 0261 Oct, [facility] [id number], [place] [address]- 9606 Oct, [facility] [id number] [place] [address] 79211- 3902 Sep, [facility] [id number] [place] [address] 60669- 0509 Sep, Primary insomnia F51.01 [facility] [id number] [place] [address] 67155- 8161 Sep, Primary insomnia F51.01 [facility] [id number] [place] [address] 980066- 6172 Sep, [facility] [id number] [place] [address] 15805- 2465 Aug, [facility] [id number] [place] [address] 87645- 5691 Aug, [facility] [id number] [place] [address] 07128- 9681 Aug, Primary insomnia F51.01 ; Mood disorder F39 ; Nausea and vomiting, unspecified intactability, vomiting of unspecified type R11.2 and Diarrhea R19.7 [facility] [address], [place] [address]- 2196 Aug, [facility] [id number] [place] [address] 69410- 1784 Aug, Folliculitis L73.9 [facility] [id number] [place] [address] 58761- 2543 Aug, [facility] [id number] [place] [address] 52468- 0653 Aug, [facility] [id number] [place] [address] 37801- 0910 Jul, Folliculitis L73.9 [facility] [id number] [place] [address] 75166- 0541 Jul, [facility] [address], [place] [address]- 0535 Jun, Folliculitis L73.9 [facility] [id number] [place] [address] 86751- 9061 Jun, [facility] [id number] [place] [address] 41463- 0032 May, Polyneuropathy G62.9 [facility] [id number] [place] [address] 38210- 4499 May, Other specified diseases of anus and rectum K62.89 [place] [id number] [place] [address] 94309- 0438 May, [place] [id number] [place] [address] 43947- 0816 May, Primary insomnia F51.01 [facility] [id number] [place] [address] 98222- 8013 May, [facility] [id number] [place] [address] 07851- 0553 May, [facility] [id number] [place] [address] 97920- 1271 Apr, Other specified diseases of anus and rectum K62.89 ; Chronic fatigue R53.82 ; Urinary tract infection, site not specified N39.0 and Enterococcus as the cause of diseases classified elsewhere B95.2 [facility] [address], [place] [address]- 9745 Apr, [facility] [id number] [place] [address] 34757- 3149 Apr, [facility] [id number] [place] [address] 05509- 7644 Apr, 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 [facility] [id number] [place] [address] 52744- 0988 05 Apr, 2015 [facility] [address], [place] [address]- 2165 26 Mar, 2015 [facility] [address], [place] [address]- 2556 23 Mar, 2015 [facility] [place] [facility] [address], [place] [address] 2546 17 Mar, 2015 [facility] [id number] [place] [address] 54032 2544 14 Mar, 2015 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 [facility] [place] [facility] [id number] [place] [address] 18332- 3086 12 Mar, 2015 [facility] [id number] [address]- 6116 11 Mar, 2015 [facility] [place] [facility] [id number] [place] [address] 27954- 6371 11 Mar, 2015 [facility] [place] [facility] [address] [address]- 3718 10 Mar, 2015 [facility] [place] [facility] [address], [place] [address]- 9926 Feb, [facility] [address], [place] [address]- 0160 Feb, [facility] [address], [place] [address]- 0986 Feb, [facility] [address], [place] [address] 2548 Jan, [facility] [place] [facility] [address], [place] [address]- 3513 Jan, Nausea 787.02 and Neuropathy 355.9 [facility] [address], [place] [address] 2546 Jan, [facility] [address], [place] [address]- 8810 Jan, [facility] [place] [facility] [address] [id number] [place] [address]- 7325 Jan, [facility] [place] [facility] [address] [id number] [place] [id number] Jan, Dental examination V72.2 [facility] [place] [facility] [address] [facility] [id number] [place] [address]- 4530 Jan, [facility] [place] [facility] [address] [facility] [id number] 0613 Dec, [facility] [place] [facility] [address] [id number] [place] [address]- 7617 Dec, [facility] [place] [facility] [address] [facility] [id number] [place] [address]- 1335 Dec, Neuropathy 355.9 [facility] [place] [facility] [address] [place] [address]- 2366 November, [facility] [place] [facility] [address] [facility] [id number] [place] [address]- 9683 November, [facility] [place] [facility] [id number] [place] [address]- 8007 November, [facility] [place] [facility] [address] [facility] [id number] [place] [address]- 6041 Oct, [facility] [place] [facility] [address] [facility] [id number] [place] [address]- 5300 Oct, [facility] [place] [facility] [address] [facility] [id number], [place] [address] Sep, [facility] [place] [facility] [address] [facility] [id number] [place] [address] Sep, [facility] [place] [facility] [address] [facility] [id number] [place] [address] Sep, [facility] [place] [facility] [address] [facility] [id number] [place] [address] Sep, [facility] [place] [facility] [address] [id number] [place] [address] Sep, [facility] [place] [facility] [address] [id number] [place] [address] Sep, [facility] [place] [facility] [address] [facility] [id number] [place] [address] Sep, [facility] [place] [facility] [address] [id number] [place] [address] Sep, [facility] [place] [facility] [address] [id number] [place] [address] Aug, 2014 [facility] [place] [facility] [address] [id number] [place] [address] Aug, 2014 [facility] [place] [facility] [address] [facility] [id number] [place] [address] Aug, 2014 [facility] [place] [facility] [address] [facility] [id number] [place] [address] Aug, [facility] [place] [facility] [address] [facility] [id number] [place] [address] Aug, [facility] [place] [facility] [address] [facility] [id number] [place] [address] Aug, [facility] [place] [facility] [address] [facility] [id number] [place] [address] Aug, [facility] [place] [facility] [address] [facility] [id number], [place] [address] Aug, [facility] [place] [facility] [address] [facility] [id number] [place] [address] Jul, [facility] [place] [facility] [address] [id number] [place] [address] Jul, [facility] [place] [facility] [address] [facility] [id number] [address] Jun, [facility] [place] [facility] [address] [facility] [id number], [place] [address] Jun, [facility] [place] [facility] [address] [id number] [place] [address] Jun, [facility] [place] [facility] [address] [id number] [place] [address] Jun, [facility] [place] [facility] [address] [facility] [id number] [place] [address] Jun, [facility] [place] [facility] [address] [id number] [place] [address] Jun, [facility] [place] [facility] [address] [id number] [place] [address] Jun, [facility] [place] [facility] [address] [id number] [place] [address] Jun, [facility] [place] [facility] [address] [facility] [id number] [place] [address] Jun, [facility] [place] [facility] [address] [id number] [place] [address] Jun, [facility] [place] [facility] [address] [facility] [id number] [place] [address] Jun, [facility] [place] [facility] [address] [facility] [id number] [place] [address] May, [facility] [place] [facility] [address] [id number] [place] [address] May, [facility] [place] [facility] [address] [id number] [place] [address] May, [facility] [place] [facility] [address] [id number] [place] [address] May, [facility] [place] [facility] [address] [id number] [place] [address] May, [facility] [place] [facility] [address] [facility] [id number] [place] [address] May, [facility] [place] [facility] [address] [id number] [place] [address] 118[address] May, [facility] [place] [facility] [address] [id number] [place] [address] 77[address] May, [facility] [place] [facility] [address] [id number] [place] [address] May, [facility] [place] [facility] [address] [id number] [place] [address] Apr, [facility] [place] [facility] [address] [id number] [place] [address] Apr, [facility] [place] [facility] [address] [id number] [place] [address] Apr, [facility] [place] [facility] [address] [id number] [place] [address]- [address] Apr, [facility] [place] [facility] [address] [id number] [place] [address] Apr, [facility] [place] [facility] [address] [id number] [place] [address] Mar, [facility] [place] [facility] [address] [id number] [place] [address] Mar, [facility] [place] [facility] [address] [id number] [place] [address]- 67[address] Feb, [facility] [place] [facility] [address] [id number] [place] [address] 36[address] Feb, [facility] [place] [facility] [address] [id number] [place] [address] Feb, [facility] [place] [facility] [address] [id number] [place] [address]- 53[address] Feb, [facility] [place] [facility] [address] [id number] [place] [address]- 1033 Feb, [facility] [place] [facility] [address] [id number] [place] [address]- 68[address] Feb, [facility] [place] [facility] [address] [id number] [place] [address]- [address] Jan, [facility] [place] [facility] [address] [id number] [place] [address] 7[address] Jan, [facility] [place] [facility] [address] [id number] [place] [address]- [address] Jan, [facility] [place] [facility] [address] [id number] [place] [address]- 06[address] Jan, [facility] [place] [facility] [address] [id number] [place] [address]- [address] Jan, [facility] [place] [facility] [address] [id number] [place] [address]- [address]31 Jan, [facility] [place] [facility] [address] [id number] [place] [address]- 5340 Jan, [facility] [place] [facility] [address] [id number] [place] [address]- 3847 Jan, [facility] [place] [facility] [address] [id number] [place] [address]- 30[address] Jan, [facility] [place] [facility] [address] [id number] [place] [address] 6[address] Jan, [facility] [place] [facility] [address] [id number] [place] [address]- 2447 Jan, [facility] [place] [facility] [address] [id number] [place] [address]33 Dec, [facility] [place] [facility] [address] [id number] [place] [address]- 9475 Dec, [facility] [place] [facility] [address] [id number] [place] [address] 1078 Dec, [facility] [place] [facility] [address] [id number] [place] [address] 6[address] Dec, [facility] [place] [facility] [address] [id number] [place] [address] 2727 Dec, [facility] [place] [facility] [address] [id number] [place] [address]- 7683 Dec, [facility] [place] [facility] [address] [id number] [place] [address]- 8791 November, [facility] [place] [facility] [address] [id number] [place] [address]- [address] November, [facility] [place] [facility] [address] [id number] [place] [address] 69[address] November, [facility] [place] [facility] [address] [id number] [place] [address]- 6148 November, [facility] [place] [facility] [address] [id number] [place] [address]- 8714 November, [facility] [place] [facility] [address] [id number] [place] [address]- 1111 November, [facility] [place] [facility] [address] [id number] [place] [address]- 7022 Oct, [facility] [place] [facility] [address] [id number] [place] [address]- 9583 Oct, [facility] [place] [facility] [address] [id number] [place] [address] 0937 Oct, [facility] [place] [facility] [address] [id number] [place] [address]- 7910 Oct, [facility] [place] [facility] [address] [id number] [place] [address]- 8126 Sep, [facility] [place] [facility] [address] [id number] [place] [address]- [address]161 17 Sep, 2013 [facility] [place] [facility] [address] [id number] [place] [address]- 5286 Sep, [facility] [place] [facility] [address] [id number] [place] [address]- 8847 Sep, [facility] [place] [facility] [address] [id number] [place] [address]- 4247 Sep, [facility] [address] [id number] [place] [address]- 1570 Aug, [facility] [address] [id number] [place] [address] 6932 Aug, [facility] [address] [id number] [place] [address]- 4196 Aug, [facility] [address] [id number] [place] [address] 7184 Aug, [facility] [address] [id number] [place] [address] Aug, [facility] [place] [id number] May, [facility] [address] [id number] [place] [address] May, [facility] [address] [id number] [place] [address]- 0946 May, [facility] [address] [id number] [place] [address]- 4268 May, [facility] [address] [id number] [place] [address] 2715 May, [facility] [address] [id number] [place] [address]- 3942 Apr, [facility] [address] [id number] [place] [address]- 7139 Apr, [facility] [place] [facility] [address] [id number] [place] [address]- 0151 Apr, [facility] [address] [id number] [place] [address]- 5706 Apr, [facility] [address] [id number] [place] [address]- 9439 Apr, [facility] [place] [facility] [address] [id number] [place] [address]- 4239 Apr, [facility] [place] [facility] [address] [id number] [place] [address]- 7946 Apr, [facility] [place] [facility] [address] [id number] [place] [address]- 3369 Mar, [facility] [place] [facility] [address] [id number] [place] [address]- 1310 Mar, [facility] [place] [facility] [address] [id number] [place] [address]- 5635 24 Mar, 2013 [facility] [place] [facility] [address] [id number] [place] [address]- 5632 Mar, [facility] [place] [facility] [address] [id number] [place] [address]- 2636 Mar, [facility] [place] [facility] [address] [id number], [place] [address]- 6973 Mar, [facility] [place] [facility] [address] [id number] [place] [address]- 5012 Feb, [facility] [place] [facility] [address] [id number] [place] [address]- 7037 Feb, [facility] [place] [facility] [address] [id number], [place] [address] 4039 Feb, [facility] [place] [facility] [address] [id number], [place] [address]- 9477 Feb, [facility] [place] [facility] [address] [id number] [place] [address]- 5927 Feb, [facility] [place] [facility] [address] [id number], [place] [address]- 3904 Feb, [facility] [place] [facility] [address] [id number], [place] [address]- 5992 Jan, [facility] [place] [facility] [address] [id number] [place] [address]- 4542 24 Dec, 2012 [facility] [address] [id number] [place] [address]- 8598 Dec, [facility] [place] [facility] [address] [id number] [place] [address]- 0455 Dec, [facility] [address] [id number] [place] [address]- 6891 Dec, [facility] [place] [facility] [address] [id number] [place] [address]- 0481 Dec, [facility] [address] [id number] [place] [address]- 4308 Dec, [facility] [address] [id number] [place] [address]- 2451 Dec, [facility] [address] [id number] [place] [address]- 7263 Dec, [facility] [address] [id number] [place] [address]- 7130 Dec, [facility] [place] [facility] [address] [id number] [place] [address]- 5957 November, [facility] [address] [id number] [place] [address]- 4061 November, [facility] [place] [facility] [address] [id number] [place] [address]- 6706 Oct, [facility] [place] [facility] [address] [id number] [place] [address]- 6251 Sep, [facility] [place] [facility] [address] [id number] [place] [address]- 4130 Sep, [facility] [place] [facility] [address] [id number] [place] [address]- 6437 15 Sep, 2012 [facility] [place] [facility] [address] [id number] [place] [address]- 2966 Sep, [facility] [address] [facility] [id number], [place] [address]- 2436 Aug, [facility] [address] [id number], [place] [address]- 0346 Aug, [facility] [address] [id number], [place] [address]- 6478 Jul, [facility] [id number], [place] [address]- 6[address] Jul, [facility] [id number], [place] [address]- 0926 Jul, [facility] [id number], [place] [address]- 1746 Sep, [facility] [id number], [place] [address]- 3106 Sep, [facility] [address] [id number], [place] [address] 1928 Sep, IMMUNIZATIONS No Known Immunizations SOCIAL HISTORY Never Assessed REASON FOR VISIT Pain management- No C/oNemesio Amezcua RN PLAN OF CARE VITAL SIGNS Height 67 in 2017-03-13 Weight 200 lbs 2017-03-13 Temperature 98.4 degrees Fahrenheit 2017-03-13 Heart Rate 80 bpm 2017-03-13 Respiratory Rate 18 2017-03-13 BMI 31.32 kg/m2 2017-03-13 Blood pressure systolic 148 mmHg 2017-03-13 Blood pressure diastolic 90 mmHg 2017-03-13 MEDICATIONS Medication Instructions Dosage Frequency Start Date End Date Duration Status Lyrica 150 MG Orally 3 times a day 1 capsule 8h Feb, 28 days Active Percocet 10-325 MG Orally every 4 hrs 1 tablet 4h Feb, 28 days Active Gabapentin 600 MG 2 tablet 8h Active Acyclovir 5 % Externally Five times a day 1 application to affected area Dec, Active Oxycodone HCl 30 MG Orally 2 times a day 1 tablet as needed 12h 25 Feb, 2017 28 days Active Zoloft 100 mg Orally Once a day 1 tablet 24h 30 Active Promethazine HCl 12.5 MG Orally every 6 hrs 1 tablet as needed 6h Active Ambien 10 mg Orally Once a day 1 tablet at bedtime as needed 24h Dec, 28 days Active Wheelchair 1 as directed Dec, Active RESULTS No Results PROCEDURES Procedure Date Ordered Result Body Site [facility] VISIT ESTABLISHED PATIENT Mar 13, 2017 INSTRUCTIONS MEDICATIONS ADMINISTERED No Known Medications [...]
--- OUTSIDE RECORDS SUMMARY | 2018-06-09 17:56 | XMS REPORT ---
Author Author LINDA BENTLEY Organization [facility] Address [address] [place] [address] Care Team Providers Care Entry Level Programmer Name Role Phone LINDA BENTLEY Unavailable PROBLEMS Type Condition ICD9-CM Code [id number] Code Onset Dates Condition Status SNOMED Code Problem Abdominal pain, left lower quadrant R10.32 Active 166073139 Problem Mood disorder F39 Active 13136609 Problem Hypertension, benign I10 Active 41200959 Problem Chronic pain syndrome G89.4 Active 838573244 Problem Attention to urostomy Z43.6 Active 170899860 Problem Anxiety F41.9 Active 12630042 Problem Neuropathy G62.9 Active 841318984 Problem Malignant neoplasm of colon, unspecified part of colon C18.9 Active 146735209 Problem Polyneuropathy G62.9 Active 43710400 Problem Incontinence of feces, unspecified fecal incontinence type R15.9 Active 71748898 Problem Chronic fatigue, unspecified R53.82 Active 872781291 Problem Hydronephrosis with ureteral stricture, not elsewhere classified N13.1 Active 38225785 Problem Primary insomnia F51.01 Active 058750728 Problem 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 223866157 ALLERGIES No Information ENCOUNTERS Encounter Location Date Diagnosis [place] [id number], [place] [address] November, Medicare annual wellness visit, initial Z00.00 [facility] [id number], [place] [address] Oct, Polyneuropathy G62.9 [facility] [id number], [place] [address] 6[address] Oct, [facility] [id number], [place] [address] Oct, [place] [id number] [place] [address] 08126- 1501 Oct, Mood disorder F39 ; Attention to urostomy Z43.6 ; Chronic pain syndrome G89.4 and Polyneuropathy G62.9 [facility] [id number] [place] [address] 82943- 2493 Sep, Polyneuropathy G62.9 [facility] [id number] [place] [address] 52553- 8186 Sep, [facility] [id number] [place] [address] 53685- 4962 Sep, Polyneuropathy G62.9 [facility] [address] [address] Aug, Polyneuropathy G62.9 [facility] [id number] [place] [address] 80227- 3972 Aug, Malignant neoplasm of colon, unspecified part of colon C18.9 and Polyneuropathy G62.9 [facility] [id number] [place] [address] 80415- 4020 Aug, Neuropathy G62.9 and Polyneuropathy G62.9 [facility] [id number] [place] [address] 94867- 6034 Jul, Encounter for drug screening Z02.83 [facility] [id number] [place] [address] 51448- 7238 Jul, Polyneuropathy G62.9 [facility] [id number] [place] [address] 76991- 0377 Jul, [facility] [id number] [place] [address] 09218- 1398 Jul, Neuropathy G62.9 and Anxiety F41.9 [facility] [id number] [place] [address] 87678- 8208 Jul, [facility] [address] [place] [address] 7723 08 Jul, 2017 [facility] [address], [place] [address] 1113 Jul, [facility] [address], [place] [address]- 8589 Jul, Polyneuropathy G62.9 [facility] [address] [place] [address] 41284- 6859 Jul, [facility] [address], [place] [address] 0175 Jun, [facility] [id number] [place] [address] 83174- 4085 Jun, [facility] [id number] [place] [address] 47381- 3263 Jun, [facility] [id number] [place] [address] 07 Jun, 2017 Encounter for dental examination Z01.20 [facility] [address] [place] [address] 37849- 1558 Jun, Polyneuropathy G62.9 and Anxiety F41.9 [facility] [address], [place] [address] 6[address] Jun, [facility] [id number] [place] [address] May, Dental examination Z01.20 [facility] [address], [place] [address] 5386 May, Polyneuropathy G62.9 [facility] [id number], [place] [address]- 5644 Apr, Polyneuropathy G62.9 [facility] [address], [place] [address] 6240 Apr, Polyneuropathy G62.9 [facility] [id number] [place] [address] 98443- 5505 Apr, Hypertension, benign I10 ; Polyneuropathy G62.9 and Anxiety F41.9 [facility] [id number] [place] [address] 02645- 7879 Apr, Primary insomnia F51.01 and Polyneuropathy G62.9 [facility] [id number] [place] [address] 79881- 0659 Apr, Primary insomnia F51.01 and Polyneuropathy G62.9 [facility] [id number] [place] [address], [place] [address]- 7[address] Mar, Primary insomnia F51.01 [facility] [id number] [place] [address], [place] [address]- 8061 Mar, [facility] [id number] [place] [address] 32334- 9562 Mar, Polyneuropathy G62.9 [facility] [id number] [place] [address] 86462- 4521 Feb, Primary insomnia F51.01 [facility] [id number] [place] [address], [place] [address]- 2755 Feb, [facility] [address], [place] [address]- 1452 Feb, [facility] [id number] [place] [address] 35678- 7441 Feb, Polyneuropathy G62.9 [facility] [address] [place] [address], [place] [address]- 7322 Feb, Primary insomnia F51.01 [facility] [id number] [place] [address] 74696- 2262 Jan, [facility] [address], [place] [address]- 1769 Jan, [facility] [id number], [place] [address]- 4224 Dec, [facility] [address], [place] [address]- 3392 Dec, Primary insomnia F51.01 [facility] [address], [place] [address]- 5010 Dec, Primary insomnia F51.01 [facility] [id number] [place] [address] 77888- 6421 Dec, [facility] [id number], [place] [address]- 6497 Dec, [facility] [id number] [place] [address] 56334- 8593 Dec, [facility] [id number] [place] [address] 34966- 9384 Dec, [facility] [address] [place] [address] 90396- 1621 November, Primary insomnia F51.01 and Polyneuropathy G62.9 [facility] [address], [place] [address]- 5734 November, [facility] [address], [place] [address]- 5745 November, Abdominal pain, left lower quadrant R10.32 [facility] [address], [place] [address]- 9533 November, [facility] [address], [place] [address]- 2334 Oct, [facility] [id number], [place] [address]- 7934 Oct, Abdominal pain, left lower quadrant R10.32 ; 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 and Neuropathy G62.9 [facility] [address], [place] [address]- 1455 Oct, [facility] [address] [place] [address] 95826- 3784 Sep, [facility] [address] [id number] Sep, [facility] [id number] [place] [address] 63815- 5015 Sep, [facility] [id number] [place] [address] 89321- 2189 Aug, [facility] [id number] [place] [address] 26740- 4597 Aug, [facility] [id number] [place] [address] 78027- 0764 Aug, Abdominal pain, left lower quadrant R10.32 ; Neuropathy G62.9 and Anxiety F41.9 [facility] [address] [place] [address] Jul, [facility] [id number] [place] [address] 63148- 2442 Jul, [facility] [id number] [place] [address] 14959 -6719 Jul, [facility] [id number] [place] [address] 19830- 7249 Jul, [facility] [id number] [place] [address] 18923- 1665 Jul, [facility] [id number] [place] [address] 84877- 8623 Jun, [facility] [id number] [place] [address] 57817- 1183 May, [facility] [id number] [place] [address] 17416- 4039 May, [facility] [address] [place] [address] 82681- 7484 Apr, [facility] [address], [place] [address]- 0801 Apr, Muscle spasms of both lower extremities M62.838 and Cellulitis, unspecified cellulitis site L03.90 [facility] [id number], [place] [address]- 7595 Apr, [facility] [id number] [place] [address] 52690- 6905 23 Mar, 2016 Generalized abdominal pain R10.84 [facility] [id number] [place] [address] 85165 2542 20 Mar, 2016 [facility] [id number] [place] [address] 01570- 6919 14 Mar, 2016 [facility] [id number] [place] [address] 87834- 2409 14 Mar, 2016 [facility] [id number] [place] [address] 68720- 6111 13 Mar, 2016 [facility] [address] [place] [address] 17866- 4644 12 Mar, 2016 [facility] [id number] [place] [address] 77555- 0197 09 Mar, 2016 [facility] [address] [place] [address] 27055- 1324 06 Mar, 2016 [facility] [address] [place] [address] 48196- 2544 Feb, Other specified diseases of anus and rectum K62.89 [facility] [address] [place] [address] 39149- 1511 15 Feb, 2016 [facility] [id number] [place] [address] 06732- 6160 Feb, Dizziness R42 [facility] [address] [place] [address] 70287- 2541 08 Feb, 2016 [facility] [address] [place] [address]- 8549 Jan, Polyneuropathy G62.9 [facility] [id number] [place] [address], [place] [address]- 8914 Jan, Other specified diseases of anus and rectum K62.89 [facility] [address] [facility] [id number] [place] [address] 2546 Jan, [facility] [address] [facility] [id number] [place] [address] -8363 Jan, [facility] [address] [facility] [id number] [place] [address]- 7130 Jan, [facility] [id number] [place] [address], [place] [address]- 4188 Jan, Dizziness R42 [facility] [id number] [place] [address], [place] [address]- 5253 Dec, [facility] [id number] [place] [address]- 8843 Dec, [facility] [address] [place] [address]- 7439 Dec, [facility] [address] [place] [address]- 6038 Dec, Dizziness R42 [facility] [address] [place] [address]- 0393 November, [facility] [address], [place] [address]- 2543 Oct, [facility] [address] [place] [address]- 6472 Oct, [facility] [address] [facility] [id number] [place] [address]- 1582 Oct, [facility] [address], [place] [address]- 9638 Oct, [facility] [address], [place] [address]- 4524 Sep, [facility] [id number] [place] [address] 76398- 7374 Sep, Primary insomnia F51.01 [facility] [address] [place] [address] 00041- 8473 Sep, Primary insomnia F51.01 [facility] [id number] [place] [address] 70832- 4681 Sep, [facility] [id number] [place] [address] 93639- 5962 Aug, [facility] [id number] [place] [address] 74276- 7321 Aug, [facility] [id number] [place] [address] 32495- 0814 Aug, Primary insomnia F51.01 ; Mood disorder F39 ; Nausea and vomiting, unspecified intactability, vomiting of unspecified type R11.2 and Diarrhea R19.7 [facility] [id number] [place] [address] 58524- 0704 Aug, [facility] [address] [place] [address] 14271- 3262 Aug, Folliculitis L73.9 [facility] [id number] [place] [address] 57490- 5873 Aug, [facility] [address] [place] [address] 37113- 1867 Aug, [facility] [id number] [place] [address] 97708- 1495 Jul, Folliculitis L73.9 [facility] [address] [place] [address] 48963- 9902 Jul, [facility] [id number] [place] [address] 95604- 1404 Jun, Folliculitis L73.9 [facility] [id number] [place] [address] 46029- 2011 Jun, [facility] [id number] [place] [address] 97995- 3511 May, Polyneuropathy G62.9 [facility] [id number] [place] [address] 39877- 5947 May, Other specified diseases of anus and rectum K62.89 [facility] [id number] [place] [address] 05254- 7355 May, [place] [id number] [place] [address] 28966- 5006 May, Primary insomnia F51.01 [place] [id number] [place] [address] 08484- 3730 May, [facility] [id number] [place] [address] 41271- 2568 May, [facility] [id number] [place] [address] 90480- 5109 Apr, Other specified diseases of anus and rectum K62.89 ; Chronic fatigue R53.82 ; Urinary tract infection, site not specified N39.0 and Enterococcus as the cause of diseases classified elsewhere B95.2 [facility] [address] [place] [address] 68468- 4286 Apr, [facility] [id number] [place] [address] 97592- 8418 Apr, [facility] [id number] [place] [address] 31807- 8461 Apr, 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 [facility] [id number] [place] [address] 18309- 3865 Apr, [facility] [id number] [place] [address] [place] [address]- 6492 26 Mar, 2014 [facility] [address], [place] [address]- 5356 23 Mar, 2014 [facility] [address], [place] [address]- 0926 17 Mar, 2014 [facility] [id number], [place] [address] 2546 14 Mar, 2015 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 [facility] [address], [place] [address]- 3713 12 Mar, 2014 [facility] [id number] [place] [address] 15843- 5186 11 Mar, 2015 [facility] [address] [place] [address] 55750- 2597 11 Mar, 2015 [facility] [id number] [place] [address] 67610- 8728 10 Mar, 2015 [facility] [address], [place] [address]- 6257 28 Feb, 2015 [facility] [address], [place] [address]- 9730 Feb, [facility] [address], [place] [address]- 1945 Feb, [facility] [address], [place] [address]- 1489 30 Jan, 2015 [facility] [address], [place] [address]- 254 Jan, Nausea 787.02 and Neuropathy 355.9 [facility] [address], [place] [address]- 3656 Jan, [facility] [address], [place] [address]- 2546 Jan, [facility] [address], [place] [address]- 1076 Jan, [facility] [address] [id number] [place] [id number] Jan, Dental examination V72.2 [facility] [address] [id number] [place] [address]- 0846 Jan, [facility] [address] [id number] [place] [address]- 8356 Dec, [facility] [place] [facility] [address] [id number] [place] [address]- 2509 Dec, [facility] [address] [id number] [place] [address]- 1501 Dec, Neuropathy 355.9 [facility] [address] [facility] [id number] [place] [address]- 3876 November, [facility] [address] [place] [address]- 2887 November, [facility] [address] [id number] [address]- 6221 November, [facility] [address] [place] [address]- 7313 Oct, [facility] [id number], [place] [address]- 9689 Oct, [facility] [place] [facility] [address] [facility] [id number] [place] [address]- 4476 Sep, [facility] [place] [facility] [address] [id number] [address]- 0796 Sep, [facility] [place] [facility] [address] [id number] [place] [address]- 7236 Sep, [facility] [place] [facility] [address] [facility] [id number] [place] [address]- 2546 Sep, [facility] [place] [facility] [address] [facility] [id number] [place] [address]- 5776 Sep, [facility] [place] [facility] [address] [id number] [place] [address]- 8252 Sep, [facility] [place] [facility] [address] [id number] [place] [address]- 4242 Sep, [facility] [place] [facility] [address] [id number] [place] [address]- 4298 Sep, [facility] [place] [facility] [address] [id number] [place] [address]- 7726 Aug, 2014 [facility] [place] [facility] [address] [id number] [place] 6212 Aug, [facility] [place] [facility] [address] [id number] [place] [address]- 7083 Aug, [facility] [place] [facility] [address] [id number] [place] [address] Aug, [facility] [place] [facility] [address] [id number] [place] [address] Aug, [facility] [place] [facility] [address] [id number] [place] [address] Aug, [facility] [place] [facility] [address] [id number] [place] [address] Aug, [facility] [place] [facility] [address] [id number] [place] [address] Aug, [facility] [place] [facility] [address] [id number] [place] [address] Jul, [facility] [place] [facility] [address] [id number] [place] [address] Jul, [facility] [place] [facility] [address] [id number] [place] [address] Jun, [facility] [place] [facility] [address] [facility] [id number] [place] [address] Jun, [facility] [place] [facility] [address] [id number] [place] [address] Jun, [facility] [place] [facility] [address] [id number] [place] [address] Jun, [facility] [place] [facility] [address] [id number] [place] [address] Jun, [facility] [place] [facility] [address] [id number] [place] [address] Jun, [facility] [place] [facility] [address] [id number] [place] [address] Jun, [facility] [place] [facility] [address] [id number] [place] [address] Jun, [facility] [place] [facility] [address] [id number] [place] [address] Jun, [facility] [place] [facility] [address] [id number] [place] [address] Jun, [facility] [place] [facility] [address] [id number] [place] [address] Jun, [facility] [place] [facility] [address] [id number] [place] [address] May, [facility] [place] [facility] [address] [id number] [place] [address] May, [facility] [place] [facility] [address] [id number] [place] [address] May, [facility] [place] [facility] [address] [id number] [place] [address] May, [facility] [place] [facility] [address] [id number] [place] [address] May, [facility] [place] [facility] [address] [id number] [place] [address] May, [facility] [place] [facility] [address] [id number] [place] [address] May, [facility] [place] [facility] [address] [id number] [place] [address] May, [facility] [place] [facility] [address] [id number] [place] [address] May, [facility] [place] [facility] [address] [id number] [place] [address] Apr, [facility] [place] [facility] [address] [id number] [place] [address] Apr, [facility] [place] [facility] [address] [id number] [place] [address] Apr, [facility] [place] [facility] [address] [id number] [place] [address] Apr, [facility] [place] [facility] [address] [id number] [place] [address] Apr, [facility] [place] [facility] [address] [id number] [place] [address] Mar, [facility] [place] [facility] [address] [id number] [place] [address] Mar, [facility] [place] [facility] [address] [id number] [place] [address] Feb, [facility] [place] [facility] [address] [id number] [place] [address] Feb, [facility] [place] [facility] [address] [id number], [place] [address] Feb, [facility] [place] [facility] [address] [id number] [place] [address] Feb, [facility] [place] [facility] [address] [id number] [place] [address] Feb, [facility] [place] [facility] [address] [id number] [place] [address] Feb, [facility] [place] [facility] [address] [id number], [place] [address] Jan, [facility] [place] [facility] [address] [id number] [place] [address] Jan, [facility] [facility] [address] [id number] [place] [address] Jan, [facility] [place] [facility] [address] [id number] [place] [address] Jan, [facility] [place] [facility] [address] [id number] [place] [address] Jan, [facility] [place] [facility] [address] [id number] [place] [address] Jan, [facility] [place] [facility] [address] [id number] [place] [address] Jan, [facility] [place] [facility] [address] [id number] [place] [address] Jan, [facility] [place] [facility] [address] [id number] [place] [address] Jan, [facility] [place] [facility] [address] [id number] [place] [address] Jan, [facility] [place] [address] [id number] [place] [address] Jan, [facility] [place] [facility] [address] [id number] [place] [address] Dec, [facility] [place] [facility] [address] [id number] [place] [address] Dec, [facility] [place] [address] [id number] [place] [address] Dec, [facility] [place] [facility] [address] [id number] [place] [address] Dec, [facility] [place] [facility] [address] [id number] [place] [address] Dec, [facility] [place] [address] [id number] [place] [address] Dec, [facility] [place] [facility] [address] [id number] [place] [address] November, [facility] [address] [id number] [place] [address] November, [facility] [address] [id number] [place] [address] November, [facility] [place] [facility] [address] [id number] [place] [address] November, [facility] [place] [facility] [address] [id number] [place] [address]80 November, [facility] [address] [id number] [place] [address] 8533 November, [facility] [place] [address] [id number] [place] [address] 39[address] Oct, [facility] [place] [facility] [address] [id number] [place] [address]- [address] 30 Oct, 2013 [facility] [address] [id number] [place] [address] Oct, [facility] [address] [id number] [place] [address]32 Oct, [facility] [place] [facility] [address] [id number] [place] [address] 17 Sep, 2013 [facility] [place] [address] [id number] [place] [address]- [address] 17 Sep, 2013 [facility] [place] [address] [id number] [place] [address]- [address] 13 Sep, 2013 [facility] [facility] [address] [id number] [place] [address]- [address] 03 Sep, 2013 [facility] [address] [id number] [place] [address] Sep, [facility] [address] [id number] [place] [address] Aug, [facility] [address] [id number] [place] [address] Aug, [facility] [address] [id number] [place] [address] 1413 Aug, [facility] [address] [id number] [place] [address] 74[address] Aug, [facility] [address] [id number] [place] [address] Aug, [facility] [address] [place] [id number] May, [facility] [address] [id number] [place] [address] May, [facility] [address] [id number], [place] [address] May, [facility] [address] [id number], [place] [address] May, [facility] [address] [id number], [place] [address] May, [facility] [address] [id number], [place] [address] Apr, [facility] [address] [id number], [place] [address] Apr, [facility] [address] [id number], [place] [address] Apr, [facility] [address] [id number], [place] [address] Apr, [facility] [address] [id number], [place] [address] Apr, [facility] [address] [id number] [place] [address]- 4286 Apr, [facility] [address] [id number] [place] [address] 4871 Apr, [facility] [address] [id number] [place] [address] 28 Mar, 2013 [facility] [address] [id number] [place] [address]77 25 Mar, 2013 [facility] [address] [id number] [place] [address]- 3185 24 Mar, 2013 [facility] [address] [id number] [place] [address]- 2496 16 Mar, 2013 [facility] [address] [id number] [place] [address]- 0183 Mar, [facility] [address] [id number] [place] [address]- [address] Mar, [facility] [address] [id number] [place] [address]- 7662 Feb, [facility] [address] [id number] [place] [address]- 3620 Feb, [facility] [address] [id number] [place] [address]- 4158 Feb, [facility] [address] [id number] [place] [address]- 6391 Feb, [facility] [address] [id number] [place] [address]- 2541 Feb, [facility] [address] [id number] [place] [address] 9436 Feb, [facility] [address] [id number] [place] [address] 8846 Jan, [facility] [address] [id number] [place] [address] 7332 Dec, [facility] [address] [id number] [place] [address]15 Dec, [facility] [address] [id number] [place] [address]- 6529 Dec, [facility] [address] [id number] [place] [address]- 5461 Dec, [facility] [address] [id number] [place] [address]- 7401 Dec, [facility] [address] [id number] [place] [address]- [address]606 Dec, [facility] [address] [id number] [place] [address]- [address] Dec, [facility] [address] [id number] [place] [address]- 6636 Dec, [facility] [address] [id number] [place] [address]- 8314 Dec, [facility] [address] [id number] [place] [address] 2505 November, [facility] [address] [id number] [place] [address]- [address] November, [facility] [address] [id number] [place] [address]- 1299 Oct, [facility] [address] [id number] [place] [address]- 4972 Sep, [facility] [address] [id number] [place] [address]- 8290 Sep, [facility] [address] [id number] [place] [address]- 4184 15 Sep, 2012 [facility] [address] [id number] [place] [address]- 4457 Sep, [facility] [address] [id number] [place] [address]- [address] Aug, [facility] [address] [facility] [id number], [place] [address] Aug, [facility] [address] [id number], [place] [address] Jul, [facility] [address] [id number], [place] [address] Jul, [facility] [address] [id number], [place] [address] 1646 Jul, [facility] [address] [facility] [id number], [place] [address] 279[address] Sep, [facility] [address] [id number], [place] [address] Sep, [facility] [address] [id number], [place] [address] Sep, IMMUNIZATIONS No Known Immunizations SOCIAL HISTORY Never Assessed REASON FOR VISIT Refill request PLAN OF CARE VITAL SIGNS MEDICATIONS Medication Instructions Dosage Frequency Start Date End Date Duration Status Oxycodone HCl 30 MG Orally 2 times a day 1 tablet as needed 12h 22 Mar, 2017 28 days Active Zoloft 100 mg [...]
[2018-06-09] MEDS ORDERED: NS IV 1000 ML 1,000 ML IV SCH (18:06)
--- NOTE | 2018-06-09 18:14 | ED GI ---
General Chief Complaint: Abdominal/GI Problems Stated Complaint: STOMACH PAIN/NAUSEA Nursing Triage Note: PT VERBALIZED MONDAY, VOMITTING, UNABLE BP AND PAIN MEDICATION DOWN. PT VERBALIZED UPPER HALF BODY IN PAIN STATES CHEST,ABDOMEN. PT DENIES "HEART PAIN" STATES "UPPER HALF OF BODY JUST ACHES" Sepsis Screen: No Definite Risk Source of Information: Patient Exam Limitations: No Limitations History of Present Illness Date Seen by Provider: Jun 09, 2018 Time Seen by Provider: 18:00 Initial Comments The patient presents to the ER by private conveyance with chief complaint she's having some nausea vomiting started Monday and got worse by , 4 days ago. Because he been vomiting somewhat she's not been able to keep his normal Phenergan and opiates down. He's not been out of his blood pressure medicines either and he felt lightheaded dizzy whenever he stands up from laying down for a long time. He is on 30 mg of oxycodone 2-3 times a day in addition to 10 mg oxycodone every 6 hours as needed. Use Phenergan because he felt the Zofran didn 't help very much for nausea. 5 years ago he was diagnosed with a rectal cancer partial colectomy and had his bladder removed and a diverting urostomy placed. He is not noticed that his urine to be cloudy or foul-smelling but he has had decreased amounts of urine production. He has not had any fever but he has had some chills. No one around him is sick with anything. He is status post radiation chemotherapy and in remission. He says this happens every now and again and when he can't tolerate his meds anymore because of the nausea vomiting he gets out of control he gets dehydrated and he gets withdrawal diarrhea from his opiates. He says he's had some loose watery stools last couple days without any blood in it. He says typically some fentanyl and Phenergan IV get some back on track. He does not know when his blood pressure medicines. Allergies and Home Medications Allergies Coded Allergies: morphine (Verified Allergy, Intermediate, 01/01/17) codeine (Verified Adverse Reaction, Unknown, NAUSEA, 01/01/17) Home Medications Cephalexin 500 Mg Capsule, 500 MG PO TID Prescribed by: NANCY CLEVELAND on 01/18/18 1337 Ondansetron 8 Mg Tab.rapdis, 8 MG PO Q8H PRN for NAUSEA/VOMITING-2ND LINE Prescribed by: NANCY CLEVELAND on 01/18/18 1337 Oxycodone HCl 30 Mg Tablet, 30 MG PO BID PRN for SEVERE PAIN, (Reported) Oxycodone HCl/Acetaminophen 1 Each Tablet, 1 TAB PO Q4H, (Reported) Pregabalin 150 Mg Capsule, 150 MG PO TID Prescribed by: NANCY CLEVELAND on 01/17/18 1742 Promethazine HCl 25 Mg Tablet, 25 MG PO Q6H PRN for NAUSEA/VOMITING Prescribed by: NANCY CLEVELAND on 01/18/18 1337 Patient Home Medication List Home Medication List Reviewed: Yes Review of Systems Review of Systems Constitutional: chills; No diaphoresis; dizziness; No fever; malaise EENTM: No Blurred Vision, No Double Vision Respiratory: Denies Cough, Denies Shortness of Air Cardiovascular: Denies Chest Pain, Denies Lightheadedness Gastrointestinal: Denies Constipated; Diarrhea, Nausea, Poor Fluid Intake, Vomiting Genitourinary: Denies Discharge, Denies Drainage Musculoskeletal: No back pain, No joint pain Skin: No pruritus, No rash Psychiatric/Neurological: Denies Headache, Denies Numbness, Denies Paresthesia Past [id number]-[id number] Hx Patient Social History Alcohol Use: Denies Use Recreational Drug Use: No 2nd Hand Smoke Exposure: No Recent Foreign Travel: No Contact w/Someone Who Travel: No Recent Infectious Disease Expo: No Recent Hopitalizations: No Immunizations Up To Date Tetanus Booster (TDap): Unknown PED Vaccines UTD: No Seasonal Allergies Seasonal Allergies: No Past Medical History Surgeries: Yes Abdominal, Bladder Surgery, Bowel Surgery, Cystectomy, Orthopedic, Rectal, Renal , Vascular Surgery Respiratory: No Currently Using CPAP: No Currently Using BIPAP: No Cardiac: No Hypertension Neurological: No Headaches /Migraines Reproductive Disorders: Yes (E.D.) Sexually Transmitted Disease: No HIV/AIDS: No Genitourinary: Yes (BLADDER CANCER) Neurogenic Bladder, UTI-Chronic Gastrointestinal: Yes Colitis Musculoskeletal: No Endocrine: No HEENT: No Loss of Vision: Denies Hearing Impairment: Denies Cancer: Yes Rectal Did You Recieve Any Treatments: Yes What Type of Treatment Did You: Chemotherapy, Radiation, Surgical Intervention Psychosocial: No Anxiety, Depression Integumentary: No Blood Disorders: No Adverse Reaction/Blood Tranf: No Family Medical History Cataract 03 FATHER, Onset:Unknown Chest pain 03 FATHER, Onset:50's - 60 Family history: Allergy 03 MOTHER Family history: Arthritis 03 FATHER 03 MOTHER Family history: Asthma 03 MOTHER Family history: Cardiovascular disease 03 FATHER Family history: Diabetes mellitus 03 FATHER 03 MOTHER Family history: Hypertension 03 FATHER 03 MOTHER Headache 03 FATHER 03 MOTHER Heart disease 03 FATHER History of - respiratory disease 03 MOTHER Hypercholesterolemia 03 FATHER 03 MOTHER Kidney disease 03 MOTHER Psychotic disorder 03 MOTHER Visual impairment 03 FATHER 03 MOTHER No Family History of: Abdominal aortic aneurysm Thousandsticks's disease Alcoholism Aphasia Cancer Cancer of colon Congenital heart disease Congestive heart failure Cystic fibrosis Dementia Dysphagia Family history: Alzheimer's disease Family history: Breast disease Family history: Coronary thrombosis Family history: Gastrointestinal disease Family history: Glaucoma Family history: Osteoporosis Family history: Thyroid disorder Hearing loss Hereditary disease History of - anemia History of - disorder History of drug abuse Human immunodeficiency virus (HIV) seropositivity Infertile Malignant neoplasm of lung Myocardial infarction Parkinson's disease Prostate cancer Seizure disorder Stroke Tuberculosis Physical Exam Vital Signs Vital Signs - First Documented 06/09/18 17:28 Pulse 96 Resp 20 B/P (MAP) 184/108 (133) Pulse Ox 97 O2 Delivery Room Air Capillary Refill : Less Than 3 Seconds Height/Weight/BMI Height: 5'9.00" Weight: 190lbs. 1.6oz. [id number]; 30.7 BMI Method:Estimated General Appearance: WD/WN, mild distress HEENT: PERRL/EOMI, pharynx normal (Mildly dry oral pharyngeal mucosa) Neck: full range of motion, normal inspection Respiratory: chest non-tender, lungs clear, normal breath sounds, no respiratory distress, no accessory muscle use Cardiovascular: normal peripheral pulses, regular rate, rhythm, no edema Peripheral Pulses: 2+ Radial Pulses (R), 2+ Radial Pulses (L) Gastrointestinal: normal bowel sounds (Active), non tender, soft, other ( Urostomy bag with clear yellow urine about 50 cc noted) Neurologic/Psychiatric: alert, oriented x 3 Skin: normal color, warm/dry Focused Exam Lactate Level 06/09/18 19:28: Lactic Acid Level 1.70 Lactic Acid Level Laboratory Tests Test 06/09/18 19:28 Lactic Acid Level 1.70 MMOL/L (0.50-2.00) Progress/Results/Core Measures Results/Orders Lab Results Laboratory Tests Test 06/09/18 18:12 06/09/18 19:03 06/09/18 19:28 Range/Units White Blood Count 14.4 H 4.3-11.0 10^3/uL Red Blood Count 5.73 4.35-5.85 10^6/uL Hemoglobin 15.8 13.3-17.7 G/DL Hematocrit 44 40-54 % Mean Corpuscular Volume 78 L 80-99 FL Mean Corpuscular Hemoglobin 28 25-34 PG Mean Corpuscular Hemoglobin Concent 36 32-36 G/DL Red Cell Distribution Width 15.9 H 10.0-14.5 % Platelet Count 399 130-400 10^3/uL Mean Platelet Volume 10.5 H 7.4-10.4 FL Neutrophils (%) (Auto) 81 H 42-75 % Lymphocytes (%) (Auto) 13 12-44 % Monocytes (%) (Auto) 5 0-12 % Eosinophils (%) (Auto) 1 0-10 % Basophils (%) (Auto) 0 0-10 % Neutrophils # (Auto) 11.6 H 1.8-7.8 X 10^3 Lymphocytes # (Auto) 1.9 1.0-4.0 X 10^3 Monocytes # (Auto) 0.7 0.0-1.0 X 10^3 Eosinophils # (Auto) 0.1 0.0-0.3 10^3/uL Basophils # (Auto) 0.0 0.0-0.1 10^3/uL Sodium Level 139 135-145 MMOL/L Potassium Level 3.9 3.6-5.0 MMOL/L Chloride Level 108 H 98-107 MMOL/L Carbon Dioxide Level 14 L 21-32 MMOL/L Anion Gap 17 H 5-14 MMOL/L Blood Urea Nitrogen 18 7-18 MG/DL Creatinine 1.30 0.60-1.30 MG/DL Estimat Glomerular Filtration Rate 58 BUN/Creatinine Ratio 14 Glucose Level 122 H 70-105 MG/DL Calcium Level 10.3 H 8.5-10.1 MG/DL Corrected Calcium 8.5-10.1 MG/DL Magnesium Level 2.4 1.8-2.4 MG/DL Total Bilirubin 1.3 H 0.1-1.0 MG/DL Aspartate Amino Transf (AST/SGOT) 43 H 5-34 U/L Alanine Aminotransferase (ALT/SGPT) 46 0-55 U/L Alkaline Phosphatase 110 40-136 U/L C-Reactive Protein High Sensitivity 0.72 H 0.00-0.50 MG/DL Total Protein 8.8 H 6.4-8.2 GM/DL Albumin 4.7 H 3.2-4.5 GM/DL Lipase 32 8-78 U/L Urine Color YELLOW Urine Clarity VERY CLOUDY H Urine pH 6 5-9 Urine Specific [place] 1.010 L 1.016-1.022 Urine Protein 3+ H NEGATIVE Urine Glucose (UA) NEGATIVE NEGATIVE Urine Ketones 1+ H NEGATIVE Urine Nitrite NEGATIVE NEGATIVE Urine Bilirubin NEGATIVE NEGATIVE Urine Urobilinogen NORMAL NORMAL MG/DL Urine Leukocyte Esterase 3+ H NEGATIVE Urine RBC (Auto) 2+ H NEGATIVE Urine RBC NONE /HPF Urine WBC 30-50 /HPF Urine Squamous Epithelial Cells 5-10 /HPF Urine Crystals PRESENT H /LPF Urine Amorphous Sediment MOD FLORES URATES H /LPF Urine Bacteria LARGE H /HPF Urine Casts NONE /LPF Urine Mucus NEGATIVE /LPF Urine Culture Indicated YES Urine Opiates Screen POSITIVE H NEGATIVE Urine Oxycodone Screen NEGATIVE NEGATIVE Urine Methadone Screen NEGATIVE NEGATIVE Urine Propoxyphene Screen NEGATIVE NEGATIVE Urine Barbiturates Screen NEGATIVE NEGATIVE Ur Tricyclic Antidepressants Screen NEGATIVE NEGATIVE Urine Phencyclidine Screen NEGATIVE NEGATIVE Urine Amphetamines Screen NEGATIVE NEGATIVE Urine Methamphetamines Screen NEGATIVE NEGATIVE Urine Benzodiazepines Screen NEGATIVE NEGATIVE Urine Cocaine Screen NEGATIVE NEGATIVE Urine Cannabinoids Screen NEGATIVE NEGATIVE Lactic Acid Level 1.70 0.50-2.00 MMOL/L My Orders Orders - TERESA SPIVEY Cbc With Automated Diff (06/09/18 18:06) Comprehensive Metabolic Panel (06/09/18 18:06) Hs C Reactive Protein (06/09/18 18:06) Drug Screen Stat (Urine) (06/09/18 18:06) Lipase (06/09/18 18:06) Magnesium (06/09/18 18:06) Ua Culture If Indicated (06/09/18 18:06) Saline Lock/Iv-Start (06/09/18 18:06) Ns Iv 1000 Ml (Sodium Chloride 0.9%) (06/09/18 18:06) Fentanyl Injection (Sublimaze Injection (06/09/18 18:15) Promethazine Injection (Phenergan Injec (06/09/18 18:15) Orthostatic Vital Signs (Adult (06/09/18 18:14) Blood Culture (06/09/18 19:03) Lactic Acid Analyzer (06/09/18 19:03) Ondansetron Injection (Zofran Injectio (06/09/18 20:00) Urine Culture (06/09/18 19:03) Metoclopramide Injection (Reglan Injecti (06/09/18 20:30) Ct Abdomen/Pelvis W (06/09/18 20:21) Fentanyl Injection (Sublimaze Injection (06/09/18 20:30) Iohexol Injection (Omnipaque 350 Mg/Ml 1 (06/09/18 20:45) Contrast Received (Contrast Received) (06/09/18 20:45) Sodium Chloride Flush (Catheter Flush Sy (06/09/18 20:45) Ns (Ivpb) (Sodium Chloride 0.9%) (06/09/18 20:45) Medications Given in ED Current Medications Medications Dose Ordered Sig/Kenny Route Start Time Stop Time Status Last Admin Dose Admin Fentanyl Citrate 50 mcg ONCE ONCE IVP 06/09/18 18:15 06/09/18 18:16 DC 06/09/18 18:37 50 MCG Fentanyl Citrate 50 mcg ONCE ONCE IVP 06/09/18 20:30 06/09/18 20:31 DC 06/09/18 20:31 50 MCG Iohexol 100 ml ONCE ONCE IV 06/09/18 20:45 06/09/18 20:46 DC 06/09/18 20:47 100 ML Metoclopramide HCl 10 mg ONCE ONCE IVP 06/09/18 20:30 06/09/18 20:31 DC 06/09/18 20:31 10 MG Ondansetron HCl 8 mg ONCE ONCE IVP 06/09/18 20:00 06/09/18 20:01 DC 06/09/18 20:31 8 MG Promethazine HCl 25 mg ONCE ONCE IVP 06/09/18 18:15 06/09/18 18:16 DC 06/09/18 18:37 25 MG Sodium Chloride 10 ml NEEDED PRN IV 06/09/18 20:45 06/09/18 20:47 10 ML Sodium Chloride 250 ml ONCE ONCE IV 06/09/18 20:45 06/09/18 20:46 DC 06/09/18 20:47 80 ML Vital Signs/I&O 06/09/18 17:28 Pulse 96 Resp 20 B/P (MAP) 184/108 (133) Pulse Ox 97 O2 Delivery Room Air Blood Pressure Mean: 133 Progress Progress Note #1: Time: 18:13 Progress Note He demonstrated tachycardia during his triage that after walking to the room and sitting down is in the 70s heart rate. No reason to do a full septic workup. We'll start with some basic labs a liter fluid, orthostatic vitals, fentanyl and Phenergan to be ran in his IV fluids. We will reassess him then. Progress Note #2: Time: 19:01 Progress Note His vital signs are more benign except for the high blood pressure. His mild elevated white count could be because of his nausea vomiting diarrhea. Do not suspect a gentleman has sepsis could be the fact that he is missing his blood pressure medicines causing his heart rate and blood pressure be elevated initially or just his pain and anxiety. We'll obtain a lactate and blood culture but hold off initiating antibiotics as I'm not convinced that this is an infectious situation but rather related to his chronic intra-abdominal problem secondary to radiation and distant surgical problems. The patient agrees with this plan at this time. Diagnostic Imaging Diagonstic Imaging: CT Plain Films/CT/US/NM/MRI: abdomen, pelvis Comments VIA [facility]. [place], [place] NAME: WAYLON MCNULTY Denita Dean MED REC#: [id number] PT STATUS: REG ER : 1965 PHYSICIAN: TERESA SPIVEY MD ADMIT DATE: 06/09/18/ER Draft Date of Exam:06/09/18 CT ABDOMEN/PELVIS W PROCEDURE: CT abdomen and pelvis with contrast. TECHNIQUE: Multiple contiguous axial images were obtained through the abdomen and pelvis after administration of intravenous contrast. INDICATION: Vomiting x2 days. Dizziness. History of rectal cancer. COMPARISON: 09/08/2017 FINDINGS: Included portions of the lung bases are clear. CT ABDOMEN: Patient is status post previous cystectomy with diverting ileostomies. Small amount of gas is noted within the bilateral renal calyces. Despite this, there is normal enhancement of the renal parenchyma. No focal masses are identified. There is no hydronephrosis or other evidence of obstruction. The liver is diffusely hypodense consistent with background of hepatic steatosis. No focal hepatic lesions are seen. Otherwise, the liver, adrenal glands, spleen, and pancreas have a normal CT appearance. There is no loculated fluid collection, free fluid, nor free air within the abdomen. No abnormal mesenteric or retroperitoneal adenopathy is seen. Small bowel loops are nondistended. A normal appendix cannot adequately identified, but appears to be surgically absent. There is mild scattered calcified aortic and arterial atherosclerosis. Bony structures show no acute abnormalities. CT PELVIS: Again, the patient is status post previous cystectomy. The patient also appears to be status post previous partial colectomy with colorectal anastomosis. There is moderate concentric rectal wall thickening. Note is made however that the rectum is essentially decompressed. There is also persistent soft tissue prominence of the presacral fat. This is stable when compared to prior exam. There is no loculated fluid collection, free fluid or free air within the pelvis. No new abnormal adenopathy is identified. Bony structures show no acute abnormality. IMPRESSION: 1. Small amount of gas within the bilateral renal calyces. Findings are likely related to previous cystectomy and bilateral diverting ileostomies. There is otherwise no CT evidence of pyelonephritis. 2. Probable hepatic steatosis. 3. Postsurgical changes of previous colorectal resection and anastomosis. Again, there is moderate concentric thickened appearance of the rectal wall. This however may be artifactual and related to incomplete distention. Overall, appearance is stable compared to prior exam. Dictated on workstation # [id number] Dict: 06/09/182116 Trans: 06/09/182129 [facility] [id number] Interpreted by: JIMBO MORALES MD Electronically signed by: Reviewed: Reviewed by Pr Departure Communication (Admissions) Time/Spoke to Admitting Phy: 22:04 Discussed case lab imaging findings with Dr. Kay within admit him for intractable nausea vomiting from possible gastroenteritis colitis. Impression Primary Impression: Nausea, vomiting, and diarrhea Additional Impression: Gastroenteritis and colitis, viral Disposition: ADMITTED INPATIENT Condition: Stable Admissions Decision to Admit Reason: Admit from ER (General) Decision to Admit/Date: Jun 09, 2018 Time/Decision to Admit Time: 22:09 Departure-Patient Inst. Referrals: NIKHIL PITTS DO (PCP) Primary Care Physician LINDA BENTLEY (Family) Primary Care Physician TERESA SPIVEY Jun 09, 2018 18:14
[2018-06-09] MEDS ORDERED: fentaNYL INJECTION 100 MCG/2 ML AMP IVP ONE ×2 (18:15→20:30)
[2018-06-09] MEDS ORDERED: PROMETHAZINE INJ 25 MG/ML (PHENERGAN) AMP IVP ONE (18:15)
[2018-06-09 18:24] LABS: BASOPHILS % (AUTO) 0 % (0-10); EOSINOPHILS # (AUTO) 0.1 10^3/uL (0.0-0.3); EOSINOPHILS % (AUTO) 1 % (0-10); HEMATOCRIT 44 % (40-54); HEMOGLOBIN 15.8 G/DL (13.3-17.7); LYMPHOCYTES # (AUTO) 1.9 X 10^3 (1.0-4.0); LYMPHOCYTES % (AUTO) 13 % (12-44); MEAN CORPUSCULAR HEMOGLOBIN 28 PG (25-34); MEAN CORPUSCULAR HGB CONC 36 G/DL (32-36); MEAN CORPUSCULAR VOLUME 78 FL (80-99); MEAN PLATELET VOLUME 10.5 FL (7.4-10.4); MONOCYTES # (AUTO) 0.7 X 10^3 (0.0-1.0); MONOCYTES % (AUTO) 5 % (0-12); NEUTROPHILS # (AUTO) 11.6 X 10^3 (1.8-7.8); NEUTROPHILS % (AUTO) 81 % (42-75); PLATELET COUNT 399 10^3/uL (130-400); RED BLOOD COUNT 5.73 10^6/uL (4.35-5.85); RED CELL DISTRIBUTION WIDTH 15.9 % (10.0-14.5); WHITE BLOOD COUNT 14.4 10^3/uL (4.3-11.0)
[2018-06-09 18:45] LABS: ALANINE AMINOTRANSFERASE 46 U/L (0-55); ALBUMIN 4.7 GM/DL (3.2-4.5); ALKALINE PHOSPHATASE 110 U/L (40-136); BILIRUBIN,TOTAL 1.3 MG/DL (0.1-1.0); BUN/CREATININE RATIO 14; CALCIUM 10.3 MG/DL (8.5-10.1); CARBON DIOXIDE 14 MMOL/L (21-32); CHLORIDE 108 MMOL/L (98-107); GFR ESTIMATED 58; GLUCOSE 122 MG/DL (70-105); LIPASE 32 U/L (8-78); MAGNESIUM 2.4 MG/DL (1.8-2.4); POTASSIUM 3.9 MMOL/L (3.6-5.0); SODIUM 139 MMOL/L (135-145); TOTAL PROTEIN 8.8 GM/DL (6.4-8.2)
[2018-06-09 19:09] LABS: BILIRUBIN,URINE NEGATIVE (NEGATIVE); CLARITY,URINE VERY CLOUDY; COLOR,URINE YELLOW; GLUCOSE, URINE (UA) NEGATIVE (NEGATIVE); KETONES,URINE 1+ (NEGATIVE); LEUKOCYTE ESTERASE ,URINE 3+ (NEGATIVE); NITRITE,URINE NEGATIVE (NEGATIVE); PH,URINE 6 (5-9); PROTEIN,URINE 3+ (NEGATIVE); UROBILINOGEN,URINE NORMAL (NORMAL)
[2018-06-09 19:25] LABS: AMPHETAMINE SCREEN, URINE NEGATIVE (NEGATIVE); BENZODIAZEPINES SCREEN URINE NEGATIVE (NEGATIVE); CANNABINOID SCREEN, URINE NEGATIVE (NEGATIVE); COCAINE SCREEN URINE NEGATIVE (NEGATIVE); METHAMPHETAMINE SCREEN URINE S NEGATIVE (NEGATIVE)
[2018-06-09 19:26] LABS: BARBITURATE SCREEN URINE NEGATIVE (NEGATIVE); METHADONE STAT NEGATIVE (NEGATIVE); OPIATE SCREEN URINE POSITIVE (NEGATIVE); OXYCODONE STAT NEGATIVE (NEGATIVE); PROPOXYPHENE STAT NEGATIVE (NEGATIVE); TRICYCLIC ANTIDEPRESSANTS SCRE NEGATIVE (NEGATIVE)
[2018-06-09 19:58] LABS: AMORPHOUS SEDIMENT,UR MOD AMOR URATES /LPF; BACTERIA,URINE LARGE /HPF; WBC,URINE 30-50 /HPF
[2018-06-09] MEDS ORDERED: ONDANSETRON 4 MG/2 ML (SDV) Z0FRAN IVP ONE (20:00)
[2018-06-09] MEDS ORDERED: METOCLOPRAMIDE INJ 10 MG/2 ML (REGLAN) IVP ONE (20:30)
[2018-06-09] MEDS ORDERED: IOHEXOL 350 MG/ML 100 ML (OMNIPAQUE 350) VIAL IV ONE (20:45)
[2018-06-09] MEDS ORDERED: RECEIVED CONTRAST (Hold Metformin) IV SCH (20:45)
[2018-06-09] MEDS ORDERED: NS 250 ML (IVPB) BAG IV ONE (20:45)
[2018-06-09] MEDS ORDERED: CATHETER FLUSH 10 ML SYR IV PRN (20:45)
--- NOTE | 2018-06-09 21:30 | Diagnostic Imaging Report ---
PROCEDURE: CT abdomen and pelvis with contrast. TECHNIQUE: Multiple contiguous axial images were obtained through the abdomen and pelvis after administration of intravenous contrast. INDICATION: Vomiting x2 days. Dizziness. History of rectal cancer. COMPARISON: 09/08/2017 FINDINGS: Included portions of the lung bases are clear. CT ABDOMEN: Patient is status post previous cystectomy with diverting ileostomies. Small amount of gas is noted within the bilateral renal calyces. Despite this, there is normal enhancement of the renal parenchyma. No focal masses are identified. There is no hydronephrosis or other evidence of obstruction. The liver is diffusely hypodense consistent with background of hepatic steatosis. No focal hepatic lesions are seen. Otherwise, the liver, adrenal glands, spleen, and pancreas have a normal CT appearance. There is no loculated fluid collection, free fluid, nor free air within the abdomen. No abnormal mesenteric or retroperitoneal adenopathy is seen. Small bowel loops are nondistended. A normal appendix cannot adequately identified, but appears to be surgically absent. There is mild scattered calcified aortic and arterial atherosclerosis. Bony structures show no acute abnormalities. CT PELVIS: Again, the patient is status post previous cystectomy. The patient also appears to be status post previous partial colectomy with colorectal anastomosis. There is moderate concentric rectal wall thickening. Note is made however that the rectum is essentially decompressed. There is also persistent soft tissue prominence of the presacral fat. This is stable when compared to prior exam. There is no loculated fluid collection, free fluid or free air within the pelvis. No new abnormal adenopathy is identified. Bony structures show no acute abnormality. IMPRESSION: 1. Small amount of gas within the bilateral renal calyces. Findings are likely related to previous cystectomy and bilateral diverting ileostomies. There is otherwise no CT evidence of pyelonephritis. 2. Probable hepatic steatosis. 3. Postsurgical changes of previous colorectal resection and anastomosis. Again, there is moderate concentric thickened appearance of the rectal wall. This however may be artifactual and related to incomplete distention. Overall, appearance is stable compared to prior exam. Dictated by: Dictated on workstation # [id number]
--- OUTSIDE RECORDS SUMMARY | 2018-06-09 22:23 | XMS REPORT | Clinical Summary ---
Author Author [facility] Organization [facility] Address Unknown Phone Unavailable Care Team Providers Care [employer] Name Role Phone Polo Link MD Unavailable Rosalba Coker RN Unavailable Unavailable Radha Luna RN Unavailable Elizabeth Montoya RN Unavailable Unavailable Gildardo Walker MD PCP Fern Perez RN Unavailable Unavailable Source Comments Some departments are not documenting in the electronic medical record. If you do not see the information that you expected, contact Release of Information in the Health Information Management department at [phone] for further assistance in locating additional records.[facility] Allergies Active Allergy Reactions Severity [...] retention 02/10/2014 Rectal cancer (HCC) 02/10/2014 Overview: [id number] S/p brain-adjuvant chemo/XRT S/p LAR with diverting [...]
[2018-06-09] MEDS ORDERED: 1/2 NS W/KCL 20 MEQ/L 1,000 ML IV ONE (22:53)
[2018-06-09] MEDS ORDERED: fentaNYL INJECTION 100 MCG/2 ML AMP ONE (22:57)
[2018-06-09] MEDS ORDERED: PIPERACILLIN/TAZO 4.5 GM/NS 100 ML IV ONE ×2 (23:00)
[2018-06-09] MEDS: fentaNYL INJECTION 100 MCG/2 ML AMP IV PRN (23:06)
[2018-06-09] MEDS: 1/2 NS W/KCL 20 MEQ/L 1,000 ML IV SCH (23:08)
[2018-06-09 23:27] VITALS: BP 184/97
[2018-06-09] MEDS ORDERED: hydrALAZINE (APESOLINE) 20 MG/ML VIAL ONE (23:40)
[2018-06-09] MEDS ORDERED: hydrALAZINE (APESOLINE) 20 MG/ML VIAL IV ONE (23:45)
[2018-06-09] MEDS: ONDANSETRON 4 MG/2 ML (SDV) Z0FRAN IV PRN (23:50)
[2018-06-10] MEDS: PROMETHAZINE INJ 25 MG/ML (PHENERGAN) AMP IV PRN ×3 (00:35→12:17)
[2018-06-10] MEDS: fentaNYL INJECTION 100 MCG/2 ML AMP IV PRN ×11 (01:09→23:06)
[2018-06-10] MEDS: diphenhydrAMINE 50 MG/ML INJ (BENADRYL) IV PRN ×2 (01:10→19:00)
[2018-06-10] MEDS: ONDANSETRON 4 MG/2 ML (SDV) Z0FRAN IV PRN ×4 (03:52→20:13)
[2018-06-10 04:00] VITALS: BP 183/95
[2018-06-10] MEDS: METOCLOPRAMIDE INJ 10 MG/2 ML (REGLAN) IV PRN ×3 (04:38→22:31)
[2018-06-10] MEDS: PIPERACILLIN/TAZO 4.5 GM/NS 100 ML IV SCH ×6 (05:34→20:13)
[2018-06-10 06:10] LABS: BASOPHILS % (AUTO) 0 % (0-10); EOSINOPHILS % (AUTO) 0 % (0-10); HEMATOCRIT 42 % (40-54); HEMOGLOBIN 14.5 G/DL (13.3-17.7); LYMPHOCYTES # (AUTO) 1.4 X 10^3 (1.0-4.0); LYMPHOCYTES % (AUTO) 10 % (12-44); MEAN CORPUSCULAR HEMOGLOBIN 28 PG (25-34); MEAN CORPUSCULAR HGB CONC 35 G/DL (32-36); MEAN CORPUSCULAR VOLUME 79 FL (80-99); MEAN PLATELET VOLUME 10.8 FL (7.4-10.4); MONOCYTES # (AUTO) 0.7 X 10^3 (0.0-1.0); MONOCYTES % (AUTO) 5 % (0-12); NEUTROPHILS # (AUTO) 12.1 X 10^3 (1.8-7.8); NEUTROPHILS % (AUTO) 85 % (42-75); PLATELET COUNT 327 10^3/uL (130-400); RED BLOOD COUNT 5.26 10^6/uL (4.35-5.85); RED CELL DISTRIBUTION WIDTH 15.1 % (10.0-14.5); WHITE BLOOD COUNT 14.1 10^3/uL (4.3-11.0)
[2018-06-10 06:28] LABS: BAND NEUTROPHILS 0 %; BASOPHILS % (MANUAL) 0 %; EOSINOPHILS % (MANUAL) 0 %; LYMPHOCYTES % (MANUAL) 8 %; MONOCYTES % (MANUAL) 6 %; NEUTROPHILS % (MANUAL) 82 %; REACTIVE LYMPHOCYTES 4 %
[2018-06-10 06:29] LABS: ANISOCYTOSIS SLIGHT
[2018-06-10 06:47] LABS: ALBUMIN 4.3 GM/DL (3.2-4.5); BILIRUBIN,TOTAL 1.4 MG/DL (0.1-1.0); CALCIUM 9.4 MG/DL (8.5-10.1); CREATININE SERUM 1.33 MG/DL (0.60-1.30); POTASSIUM 3.4 MMOL/L (3.6-5.0); TOTAL PROTEIN 7.4 GM/DL (6.4-8.2)
[2018-06-10 08:00] VITALS: BP 187/98
[2018-06-10] MEDS: 1/2 NS W/KCL 20 MEQ/L 1,000 ML IV SCH ×2 (08:03→14:17)
[2018-06-10] MEDS ORDERED: FLU QUADRIvalent (5+ YOA) 2018-2019 (AFLURIA) 0.5 ML IM ONE (08:45)
[2018-06-10 12:00] VITALS: BP 182/93
[2018-06-10] MEDS ORDERED: PANTOPRAZOLE 40 MG (PROTONIX) VIAL IV NR (15:00)
[2018-06-10] MEDS ORDERED: amLODIPine 10 MG (NORVASC) TAB PO ONE (15:45)
[2018-06-10 16:00] VITALS: BP 184/96
[2018-06-10 20:37] VITALS: BP 186/96
[2018-06-10] MEDS: lisINopril 10 MG (PRINIVIL) TABLET PO SCH (21:27)
--- NOTE | 2018-06-10 22:24 | History & Physicial (CHS) ---
HPI History of Present Illness: 52 yo M with multiple abdominal surgeries who presents with intractable N/V. States that he has a baseline abdominal pain but it has got worse the last couple of days. Denies any sick contacts. Denies any blood in his vomit. He has taken his zofran and it did not help the symptoms. Denies any other associated symptoms. Source: patient, RN/MD, old records Exam Limitations: no limitations Date seen by provider: Jun 10, 2018 Time Seen by Provider: 11:15 Attending Physician Warren Kay MD PCP Jyotsna Teresa DO Consult Date of Admission Jun 09, 2018 at 22:05 Home Medications Home Medications Reviewed patient Home Medication Reconciliation performed by pharmacy medication reconciliations controls technician and/or nursing. Patients Allergies have been reviewed. Allergies Coded Allergies: morphine (Verified Allergy, Intermediate, 01/01/17) codeine (Verified Adverse Reaction, Unknown, NAUSEA, 01/01/17) [id number] Hx Patient Social History Alcohol Use: Denies Use Recreational Drug Use: No Smoking Status: Never a Smoker 2nd Hand Smoke Exposure: No Recent Foreign Travel: No Contact w/other who traveled: No Recent Hopitalizations: No Recent Infectious Disease Expo: No Physical Abuse Screen: No Sexual Abuse: No Immunizations Up To Date Tetanus Booster (TDap): Unknown Past Medical History 1. Rectal Cancer Stage II [id number]- s/p chemotherapy and radiation stopped secondary to intolerance. Last chemo 07/16/14 2. Gastroparesis secondary #1 3. Severe Gastritis per EGD 07-30 [facility] 4. Small hiatal hernia 3cm - [facility] 5. Grade B reflux esophagitis 07/30 6. Recurrent episodes of nausea and vomiting secondary to #2, and #3 7. Bladder Removal 8. HTN 9. C-Diff colitis 10. Mood disorder with depression 11. Recurrent Headaches 12. Recurrent admissions for dehydration secondary and acute renal insufficiency secondary to #2, #3, #6 13. Recurrent hypokalemia and hypomagnesia secondary to other co-morbidities Past Surgical History 1. Placement of JJ stent for hydronephrosis 03-06-13 Rene 2. EGD - [facility], severe gastritis 3. Diverting loop ileostomy with colon resection 12-06-12 Joey 4. Reversal of ileostomy 04-18-13 5. Colonoscopy x2 by Dr. Aguilar 6. Nephrostomy tube placement with cystectomy 03/30 [facility] 7. Left Arm Fracture 04/2017 Family Medical History Family History: Cataract 03 FATHER, Onset:Unknown Chest pain 03 FATHER, Onset:50's - 60 Family history: Allergy 03 MOTHER Family history: Arthritis 03 FATHER 03 MOTHER Family history: Asthma 03 MOTHER Family history: Cardiovascular disease 03 FATHER Family history: Diabetes mellitus 03 FATHER 03 MOTHER Family history: Hypertension 03 FATHER 03 MOTHER Headache 03 FATHER 03 MOTHER Heart disease 03 FATHER History of - respiratory disease 03 MOTHER Hypercholesterolemia 03 FATHER 03 MOTHER Kidney disease 03 MOTHER Psychotic disorder 03 MOTHER Visual impairment 03 FATHER 03 MOTHER No Family History of: Abdominal aortic aneurysm [place]'s disease Alcoholism Aphasia Cancer Cancer of colon Congenital heart disease Congestive heart failure Cystic fibrosis Dementia Dysphagia Family history: Alzheimer's disease Family history: Breast disease Family history: Coronary thrombosis Family history: Gastrointestinal disease Family history: Glaucoma Family history: Osteoporosis Family history: Thyroid disorder Hearing loss Hereditary disease History of - anemia History of - disorder History of drug abuse Human immunodeficiency virus (HIV) seropositivity Infertile Malignant neoplasm of lung Myocardial infarction Parkinson's disease Prostate cancer Seizure disorder Stroke Tuberculosis Review of Systems ([facility]) Constitutional: chills; No fever; malaise EENTM: no symptoms reported; No vision loss, No nose congestion Respiratory: no symptoms reported; No cough, No dyspnea on exertion, No hemoptysis, No short of breath Cardiovascular: no symptoms reported; No chest pain, No edema, No palpitations Gastrointestinal: abdominal pain, diarrhea; No nausea Genitourinary: no symptoms reported; No dysuria, No frequency, No hematuria Musculoskeletal: no symptoms reported; No back pain, No joint pain, No muscle pain Skin: no symptoms reported Psychiatric/Neurological: No Symptoms Reported Reviewed Test Results Reviewed Test Results Lab Laboratory Tests Test 06/10/18 05:40 Range/Units White Blood Count 14.1 H 4.3-11.0 10^3/uL Red Blood Count 5.26 4.35-5.85 10^6/uL Hemoglobin 14.5 13.3-17.7 G/DL Hematocrit 42 40-54 % Mean Corpuscular Volume 79 L 80-99 FL Mean Corpuscular Hemoglobin 28 25-34 PG Mean Corpuscular Hemoglobin Concent 35 32-36 G/DL Red Cell Distribution Width 15.1 H 10.0-14.5 % Platelet Count 327 130-400 10^3/uL Mean Platelet Volume 10.8 H 7.4-10.4 FL Neutrophils (%) (Auto) 85 H 42-75 % Lymphocytes (%) (Auto) 10 L 12-44 % Monocytes (%) (Auto) 5 0-12 % Eosinophils (%) (Auto) 0 0-10 % Basophils (%) (Auto) 0 0-10 % Neutrophils # (Auto) 12.1 H 1.8-7.8 X 10^3 Lymphocytes # (Auto) 1.4 1.0-4.0 X 10^3 Monocytes # (Auto) 0.7 0.0-1.0 X 10^3 Eosinophils # (Auto) 0.0 0.0-0.3 10^3/uL Basophils # (Auto) 0.0 0.0-0.1 10^3/uL Neutrophils % (Manual) 82 % Lymphocytes % (Manual) 8 % Monocytes % (Manual) 6 % Eosinophils % (Manual) 0 % Basophils % (Manual) 0 % Band Neutrophils 0 % Reactive Lymphocytes 4 % Anisocytosis SLIGHT Sodium Level 139 135-145 MMOL/L Potassium Level 3.4 L 3.6-5.0 MMOL/L Chloride Level 107 98-107 MMOL/L Carbon Dioxide Level 16 L 21-32 MMOL/L Anion Gap 16 H 5-14 MMOL/L Blood Urea Nitrogen 17 7-18 MG/DL Creatinine 1.33 H 0.60-1.30 MG/DL Estimat Glomerular Filtration Rate 57 BUN/Creatinine Ratio 13 Glucose Level 131 H 70-105 MG/DL Calcium Level 9.4 8.5-10.1 MG/DL Corrected Calcium 9.2 8.5-10.1 MG/DL Total Bilirubin 1.4 H 0.1-1.0 MG/DL Aspartate Amino Transf (AST/SGOT) 24 5-34 U/L Alanine Aminotransferase (ALT/SGPT) 33 0-55 U/L Alkaline Phosphatase 94 40-136 U/L Total Protein 7.4 6.4-8.2 GM/DL Albumin 4.3 3.2-4.5 GM/DL Radiology of Exam: 06/09/18 CT ABDOMEN/PELVIS W PROCEDURE: CT abdomen and pelvis with contrast. TECHNIQUE: Multiple contiguous axial images were obtained through the abdomen and pelvis after administration of intravenous contrast. INDICATION: Vomiting x2 days. Dizziness. History of rectal cancer. COMPARISON: 09/08/2017 FINDINGS: Included portions of the lung bases are clear. CT ABDOMEN: Patient is status post previous cystectomy with diverting ileostomies. Small amount of gas is noted within the bilateral renal calyces. Despite this, there is normal enhancement of the renal parenchyma. No focal masses are identified. There is no hydronephrosis or other evidence of obstruction. The liver is diffusely hypodense consistent with background of hepatic steatosis. No focal hepatic lesions are seen. Otherwise, the liver, adrenal glands, spleen, and pancreas have a normal CT appearance. There is no loculated fluid collection, free fluid, nor free air within the abdomen. No abnormal mesenteric or retroperitoneal adenopathy is seen. Small bowel loops are nondistended. A normal appendix cannot adequately identified, but appears to be surgically absent. There is mild scattered calcified aortic and arterial atherosclerosis. Bony structures show no acute abnormalities. CT PELVIS: Again, the patient is status post previous cystectomy. The patient also appears to be status post previous partial colectomy with colorectal anastomosis. There is moderate concentric rectal wall thickening. Note is made however that the rectum is essentially decompressed. There is also persistent soft tissue prominence of the presacral fat. This is stable when compared to prior exam. There is no loculated fluid collection, free fluid or free air within the pelvis. No new abnormal adenopathy is identified. Bony structures show no acute abnormality. IMPRESSION: 1. Small amount of gas within the bilateral renal calyces. Findings are likely related to previous cystectomy and bilateral diverting ileostomies. There is otherwise no CT evidence of pyelonephritis. 2. Probable hepatic steatosis. 3. Postsurgical changes of previous colorectal resection and anastomosis. Again, there is moderate concentric thickened appearance of the rectal wall. This however may be artifactual and related to incomplete distention. Overall, appearance is stable compared to prior exam. Physical Exam-([facility]) Physical Exam Vital Signs VS - Last 72 Hours, by Label 06/09/18 06/09/18 06/09/18 06/10/18 17:28 22:17 23:27 04:00 Temp 98.1 98.6 98.9 Pulse 96 72 67 66 Resp 20 18 19 18 B/P (MAP) 184/108 (133) 161/90 (113) 184/97 (126) 183/95 (124) Pulse Ox 97 94 99 96 O2 Delivery Room Air Room Air Room Air Room Air 06/10/18 06/10/18 06/10/18 06/10/18 08:00 08:00 12:00 16:00 Temp 99.8 99.8 99.3 Pulse 96 60 74 Resp 18 18 18 B/P (MAP) 187/98 (127) 182/93 (122) 184/96 (125) Pulse Ox 99 97 98 O2 Delivery Room Air Room Air Room Air Room Air 06/10/18 06/10/18 20:35 20:37 Temp 97.8 Pulse 69 Resp 19 B/P (MAP) 186/96 (126) Pulse Ox 98 O2 Delivery Room Air Room Air Capillary Refill : Less Than 3 Seconds General Appearance: WD/WN, no apparent distress HEENT: PERRL/EOMI Neck: non-tender, full range of motion, supple Respiratory: chest non-tender, lungs clear, normal breath sounds, no respiratory distress, no accessory muscle use Cardiovascular: normal peripheral pulses, regular rate, rhythm, no edema, no murmur Gastrointestinal: normal bowel sounds, soft; No guarding; tenderness Back: no CVA tenderness, no vertebral tenderness Extremities: normal range of motion, non-tender, normal inspection, no pedal edema, no calf tenderness, normal capillary refill Neurologic/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: 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 tested, no motor/sensory deficits, alert, normal mood/affect, oriented x 3 Skin: normal color, warm/dry Lymphatic: no adenopathy Assessment/Plan Assessment/Plan Admission Status: Observation (1) Nausea and vomiting Status: Acute Assessment & Plan: - Alternate Zofran and phenergen, CLD Qualifiers: (2) Acute renal insufficiency Status: Acute Assessment & Plan: - IVF hydration, daily BMP (3) Hypokalemia Status: Acute Assessment & Plan: - Replace and repeat BMP (4) History of rectal cancer Status: Chronic Clinical Quality Measures DVT/VTE Risk/Contraindication: Risk Factor Score Per Nursin RFS Level Per Nursing on Admit: 2=Moderate Copy Copies To 2: WARREN BOLANOS MD Jun 10, 2018 22:24
[2018-06-10 22:35] VITALS: BP 160/88
[2018-06-11] VITALS (7 sets, daily range): BP systolic 125–168; BP diastolic 70–92
[2018-06-11] MEDS: ONDANSETRON 4 MG/2 ML (SDV) Z0FRAN IV PRN ×3 (00:19→20:38)
[2018-06-11] MEDS: 1/2 NS W/KCL 20 MEQ/L 1,000 ML IV SCH ×5 (00:19→22:45)
[2018-06-11] MEDS: PROMETHAZINE INJ 25 MG/ML (PHENERGAN) AMP IV PRN (01:26)
[2018-06-11] MEDS: fentaNYL INJECTION 100 MCG/2 ML AMP IV PRN ×6 (01:26→12:02)
[2018-06-11] MEDS: diphenhydrAMINE 50 MG/ML INJ (BENADRYL) IV PRN (03:05)
[2018-06-11] MEDS: PIPERACILLIN/TAZO 4.5 GM/NS 100 ML IV SCH ×6 (05:13→20:36)
[2018-06-11 07:05] LABS: BASOPHILS % (AUTO) 0 % (0-10); EOSINOPHILS % (AUTO) 0 % (0-10); HEMATOCRIT 40 % (40-54); HEMOGLOBIN 13.9 G/DL (13.3-17.7); LYMPHOCYTES # (AUTO) 1.7 X 10^3 (1.0-4.0); LYMPHOCYTES % (AUTO) 18 % (12-44); MEAN CORPUSCULAR HEMOGLOBIN 27 PG (25-34); MEAN CORPUSCULAR HGB CONC 34 G/DL (32-36); MEAN CORPUSCULAR VOLUME 80 FL (80-99); MEAN PLATELET VOLUME 10.7 FL (7.4-10.4); MONOCYTES # (AUTO) 0.6 X 10^3 (0.0-1.0); MONOCYTES % (AUTO) 6 % (0-12); NEUTROPHILS # (AUTO) 6.9 X 10^3 (1.8-7.8); NEUTROPHILS % (AUTO) 75 % (42-75); PLATELET COUNT 262 10^3/uL (130-400); RED BLOOD COUNT 5.08 10^6/uL (4.35-5.85); WHITE BLOOD COUNT 9.2 10^3/uL (4.3-11.0)
[2018-06-11 07:26] LABS: ALANINE AMINOTRANSFERASE 24 U/L (0-55); ALKALINE PHOSPHATASE 80 U/L (40-136); BILIRUBIN,TOTAL 1.1 MG/DL (0.1-1.0); BUN/CREATININE RATIO 9; CALCIUM 8.8 MG/DL (8.5-10.1); CARBON DIOXIDE 19 MMOL/L (21-32); CHLORIDE 104 MMOL/L (98-107); CREATININE SERUM 1.14 MG/DL (0.60-1.30); GFR ESTIMATED > 60; GLUCOSE 107 MG/DL (70-105); POTASSIUM 3.2 MMOL/L (3.6-5.0); SODIUM 136 MMOL/L (135-145); TOTAL PROTEIN 6.9 GM/DL (6.4-8.2)
[2018-06-11] MEDS: METOCLOPRAMIDE INJ 10 MG/2 ML (REGLAN) IV PRN (08:00)
[2018-06-11] MEDS: PANTOPRAZOLE 40 MG (PROTONIX) VIAL IV SCH (08:51)
[2018-06-11] MEDS: amLODIPine 5 MG (NORVASC) TAB PO SCH (08:51)
--- NOTE | 2018-06-11 09:38 | Progress Note-Hospitalist ---
ABRIL KEYS DO 06/11/18 0937: Subjective HPI/CC On Admission Date Seen by Provider: Jun 11, 2018 Time Seen by Provider: 09:00 Subjective/Events-last exam Chronic pain issues continue Nausea persists so will consult Dr Henry Scop patch ordered Review of Systems Gastrointestinal: Nausea, Abdominal Pain Focused Exam Lactate Level 06/09/18 19:28: Lactic Acid Level 1.70 Objective Exam Vital Signs Vital Signs Date Time Temp Pulse Resp B/P (MAP) Pulse Ox O2 Delivery O2 Flow Rate FiO2 06/11/18 08:00 99.3 69 18 165/92 (116) 94 Room Air Capillary Refill : Less Than 3 Seconds General Appearance: No Apparent Distress, WD/WN, Chronically ill Respiratory: Chest Non Tender, Lungs Clear, Normal Breath Sounds, No Accessory Muscle Use, No Respiratory Distress Cardiovascular: Regular Rate, Rhythm, No Edema, No Gallop, No JVD, No Murmur, Normal Peripheral Pulses Gastrointestinal: Normal Bowel Sounds, No Organomegaly, No Pulsatile Mass, Soft , Tenderness Neurologic/Psychiatric: Alert, Oriented x3, No Motor/Sensory Deficits, Normal Mood/Affect Results/Procedures Lab Laboratory Tests 06/11/18 06:15 Patient resulted labs reviewed. Assessment/Plan Assessment and Plan Assess & Plan/Chief Complaint Assessment: Refractory nausea Acute gastroenteritis Acute on chronic pain Plan: Home meds Dr Henry consultation Diagnosis/Problems Diagnosis/Problems (1) Nausea and vomiting Status: Acute Qualifiers: Vomiting type: unspecified (2) Hypokalemia Status: Acute (3) Acute renal insufficiency Status: Acute (4) History of rectal cancer Status: Chronic (5) Gastroenteritis and colitis, viral Status: Acute Clinical Quality Measures DVT/VTE Risk/Contraindication: Risk Factor Score Per Nursin RFS Level Per Nursing on Admit: 2=Moderate SHAY CONTRERAS MED STUDENT 06/11/18 1026: Subjective Subjective/Events-last exam Patient states that he is feeling better He experienced nausea/vomiting last night He is still having generalized abdominal pain He is also experiencing mild chest pain He states that his bowels are moving normally Objective Exam General Appearance: No Apparent Distress, WD/WN Respiratory: Chest Non Tender, Lungs Clear, Normal Breath Sounds, No Accessory Muscle Use, No Respiratory Distress Cardiovascular: Regular Rate, Rhythm, No Edema, No Gallop, No JVD, No Murmur Gastrointestinal: Normal Bowel Sounds, No Organomegaly, No Pulsatile Mass, Soft Neurologic/Psychiatric: Alert, Oriented x3, No Motor/Sensory Deficits, Normal Mood/Affect Skin: Normal Color, Warm/Dry Assessment/Plan Assessment and Plan Assess & Plan/Chief Complaint Assessment: 1) Nausea/vomiting 2) Gastroenteritis Plan: 1) Continue antiemetics 2) consult surgery ABRIL KEYS DO Jun 11, 2018 09:37 SHAY CONTRERAS MED STUDENT Jun 11, 2018 10:26
[2018-06-11] MEDS ORDERED: SCOPOLAMINE 1.5 MG (TRANSDERM-SCOP) PATCH TD NR (09:53)
[2018-06-11] MEDS ORDERED: ACETAMINOPHEN 500 MG TAB (TYLENOL) PO PRN (11:30)
[2018-06-11] MEDS ORDERED: ONDANSETRON 8 MG (ZOFRAN) ORAL DISSOLVE TAB PO PRN (12:15)
[2018-06-11] MEDS ORDERED: NON-FORMULARY MEDICATION 1 EA EA (Oxycodone HCl 30 MG) PO PRN (12:15)
[2018-06-11] MEDS ORDERED: PROMETHAZINE 25 MG (PHENERGAN) TAB PO PRN (12:15)
[2018-06-11] MEDS ORDERED: NON-FORMULARY MEDICATION 1 EA EA (Pregabalin (Lyrica) 150 MG) PO SCH (13:00)
[2018-06-11] MEDS: oxyCODONE/APAP 10/325MG (PERCOCET 10) TABLET PO SCH ×3 (13:12→20:37)
[2018-06-11] MEDS: PREGABALIN 75 MG (LYRICA) CAP PO SCH ×2 (13:12→20:37)
[2018-06-11] MEDS ORDERED: SERT100T8 PO (14:01)
[2018-06-11] MEDS ORDERED: AMLO10TA6 PO (14:01)
[2018-06-11] MEDS ORDERED: PROM25TA14 PO (14:01)
[2018-06-11] MEDS ORDERED: PREG150C PO (14:01)
[2018-06-11] MEDS ORDERED: ASPI-789 PO (14:02)
--- NOTE | 2018-06-11 17:04 | Consultation ---
History of Present Illness History of Present Illness Patient Consulted On(ronna/time) 06/11/18 16:58 Date Seen by Provider: Jun 11, 2018 Time Seen by Provider: 09:22 History of Present Illness Surgery asked to consult regarding N/V and abdominal pain. HPI per ED: The patient presents to the ER by private conveyance with chief complaint he's having some nausea vomiting started Monday and got worse by , 4 days ago. Because he been vomiting somewhat he's not been able to keep his normal Phenergan and opiates down. He's not been out of his blood pressure medicines either and he felt lightheaded dizzy whenever he stands up from laying down for a long time. He is on 30 mg of oxycodone 2-3 times a day in addition to 10 mg oxycodone every 6 hours as needed. Use Phenergan because he felt the Zofran didn't help very much for nausea. 5 years ago he was diagnosed with a rectal cancer partial colectomy and had his bladder removed and a diverting urostomy placed. He is not noticed that his urine to be cloudy or foul-smelling but he has had decreased amounts of urine production. He has not had any fever but he has had some chills. No one around him is sick with anything. He is status post radiation chemotherapy and in remission. He says this happens every now and again and when he can't tolerate his meds anymore because of the nausea vomiting he gets out of control he gets dehydrated and he gets withdrawal diarrhea from his opiates. He says he's had some loose watery stools last couple days without any blood in it. He says typically some fentanyl and Phenergan IV get some back on track. He does not know when his blood pressure medicines. When seen today patient states that if he can take his pain medicines do not have the nausea and vomiting but his been on the unable to take them either. He states the Zofran and Phenergan are working a little bit but he still has dry heaves and hasn't dry he is just prior to me coming in. Patient states he' s not had a upper GI scope in over 4 years but he did have a colonoscopy [address] Aguilar. Patient denies any hematemesis. He does have a history of severe reflux esophagitis seen on the EGD in 2013. Patient came in dehydrated with a urinary tract infection. Allergies and Home Medications Allergies Coded Allergies: morphine (Verified Allergy, Intermediate, 01/01/17) codeine (Verified Adverse Reaction, Unknown, NAUSEA, 01/01/17) Home Medications Amlodipine Besylate 10 Mg Tablet, 10 MG PO DAILY, (Reported) Aspirin/Acetaminophen/Caffeine 1 Each Tablet, 2 TAB PO DAILY PRN for HEADACHE, ( Reported) Oxycodone HCl 30 Mg Tablet, 30 MG PO BID PRN for SEVERE PAIN, (Reported) Oxycodone HCl/Acetaminophen 1 Each Tablet, 1 TAB PO Q4H, (Reported) Pregabalin 150 Mg Capsule, 150 MG PO TID, (Reported) Promethazine HCl 25 Mg Tablet, 25 MG PO Q6H PRN for NAUSEA/VOMITING-2ND LINE, ( Reported) Sertraline HCl 100 Mg Tablet, 100 MG PO DAILY PRN for EMOTIONS, (Reported) Patient Home Medication List Home Medication List Reviewed: Yes Past Idofiwj-Tcoeck-Vgsolw Hx Patient Social History Alcohol Use: Denies Use Number of Drinks Today: AA Recreational Drug Use: No Smoking Status: Never a Smoker 2nd Hand Smoke Exposure: No Recent Foreign Travel: No Contact w/Someone Who Travel: No Recent Infectious Disease Expo: No Recent Hopitalizations: No Physical Abuse Screen: No Sexual Abuse: No Immunizations Up To Date Tetanus Booster (TDap): Unknown PED Vaccines UTD: No Seasonal Allergies Seasonal Allergies: No Surgeries History of Surgeries: Yes (urostomy, colonresection) Surgeries: Abdominal, Bladder Surgery, Bowel Surgery, Cystectomy, Orthopedic, Rectal, Renal, Vascular Surgery Respiratory History of Respiratory Disorde: No Cardiovascular History of Cardiac Disorders: Yes Cardiac Disorders: Hypertension Neurological History of Neurological Disord: Yes Neurological Disorders: Headaches /Migraines Reproductive System Hx Reproductive Disorders: Yes (E.D.) Sexually Transmitted Disease: No HIV/AIDS: No Genitourinary History of Genitourinary Disor: Yes Genitourinary Disorders: Neurogenic Bladder, UTI-Chronic Gastrointestinal History of Gastrointestinal Di: Yes Gastrointestinal Disorders: Colitis Musculoskeletal History of Musculoskeletal Dis: No Endocrine History of Endocrine Disorders: No HEENT History of HEENT Disorders: No Loss of Vision: Denies Hearing Impairment: Denies Cancer History of Cancer: Yes Cancer: Rectal Psychosocial History of Psychiatric Problem: Yes Behavioral Health Disorders: Anxiety, Depression Integumentary History of Skin or Integumenta: No Blood Transfusions History of Blood Disorders: No Adverse Reaction to a Blood Tr: No Family Medical History Significant Family History: CAD Under 55 Years Old, COPD, Diabetes, Hypertension Family Medial History: Cataract 03 FATHER, Onset:Unknown Chest pain 03 FATHER, Onset:50's - 60 Family history: Allergy 03 MOTHER Family history: Arthritis 03 FATHER 03 MOTHER Family history: Asthma 03 MOTHER Family history: Cardiovascular disease 03 FATHER Family history: Diabetes mellitus 03 FATHER 03 MOTHER Family history: Hypertension 03 FATHER 03 MOTHER Headache 03 FATHER 03 MOTHER Heart disease 03 FATHER History of - respiratory disease 03 MOTHER Hypercholesterolemia 03 FATHER 03 MOTHER Kidney disease 03 MOTHER Psychotic disorder 03 MOTHER Visual impairment 03 FATHER 03 MOTHER No Family History of: Abdominal aortic aneurysm [place]'s disease Alcoholism Aphasia Cancer Cancer of colon Congenital heart disease Congestive heart failure Cystic fibrosis Dementia Dysphagia Family history: Alzheimer's disease Family history: Breast disease Family history: Coronary thrombosis Family history: Gastrointestinal disease Family history: Glaucoma Family history: Osteoporosis Family history: Thyroid disorder Hearing loss Hereditary disease History of - anemia History of - disorder History of drug abuse Human immunodeficiency virus (HIV) seropositivity Infertile Malignant neoplasm of lung Myocardial infarction Parkinson's disease Prostate cancer Seizure disorder Stroke Tuberculosis Review of Systems-General Constitutional: dizziness, malaise, weakness EENTM: No blurred vision, No double vision, No mouth pain, No mouth swelling, No epistaxis, No throat swelling Respiratory: No cough, No dyspnea on exertion, No hemoptysis, No phlegm, No short of breath Cardiovascular: No chest pain, No palpitations Gastrointestinal: abdominal pain, nausea, vomiting Genitourinary: No hematuria; other (pt has urostomy, thinks there has been less urine in there) Musculoskeletal: back pain, joint pain, joint swelling Psychiatric/Neurological: Denies Anxiety, Denies Depressed, Denies Seizure, Denies Tremors Other pt denies any abnormal bleeding or bruising Physical Exam-General Problems Physical Exam Vital Signs Vital Signs - First Documented 06/09/18 06/09/18 17:28 22:17 Temp 98.1 Pulse 96 Resp 20 B/P (MAP) 184/108 (133) Pulse Ox 97 O2 Delivery Room Air Capillary Refill : Less Than 3 Seconds General Appearance: WD/WN, mild distress Eyes: Bilateral Eye PERRL, Bilateral Eye EOMI HEENT: pharynx normal; No scleral icterus (R), No scleral icterus (L) Neck: non-tender, full range of motion, supple, normal inspection Respiratory: chest non-tender, lungs clear, normal breath sounds, no respiratory distress, no accessory muscle use Cardiovascular: regular rate, rhythm, no edema, no murmur Gastrointestinal: normal bowel sounds, soft, no pulsatile mass, other ( urostomy present, pink and functioning) Back: no CVA tenderness, no vertebral tenderness Extremities: normal range of motion, non-tender, normal inspection, no pedal edema, no calf tenderness 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, no motor/sensory deficits, alert, normal mood/affect, oriented x 3 Skin: normal color, warm/dry Lymphatic: no adenopathy (neck, axilla or groin) Data Review Labs Laboratory Tests 06/11/18 06:15: White Blood Count 9.2, Red Blood Count 5.08, Hemoglobin 13.9, Hematocrit 40, Mean Corpuscular Volume 80, Mean Corpuscular Hemoglobin 27, Mean Corpuscular Hemoglobin Concent 34, Red Cell Distribution Width 15.0H, Platelet Count 262, Mean Platelet Volume 10.7H, Neutrophils (%) (Auto) 75, Lymphocytes (%) (Auto) 18 , Monocytes (%) (Auto) 6, Eosinophils (%) (Auto) 0, Basophils (%) (Auto) 0, Neutrophils # (Auto) 6.9, Lymphocytes # (Auto) 1.7, Monocytes # (Auto) 0.6, Eosinophils # (Auto) 0.0, Basophils # (Auto) 0.0, Sodium Level 136, Potassium Level 3.2L, Chloride Level 104, Carbon Dioxide Level 19L, Anion Gap 13, Blood Urea Nitrogen 10, Creatinine 1.14, Estimat Glomerular Filtration Rate > 60, BUN/ Creatinine Ratio 9, Glucose Level 107H, Calcium Level 8.8, Corrected Calcium 8.8 , Total Bilirubin 1.1H, Aspartate Amino Transf (AST/SGOT) 21, Alanine Aminotransferase (ALT/SGPT) 24, Alkaline Phosphatase 80, Total Protein 6.9, Albumin 4.0 Microbiology 06/09/18 Blood Culture - Preliminary, Resulted No growth 06/10/18 C. difficile GDH Antigen & Toxins - Final, Complete 06/09/18 Urine Culture - Preliminary, Resulted Klebsiella pneumoniae Escherichia coli Assessment/Plan Assessment/Plan Assessment/Plan Intractable Nausea and Vomiting Abdominal Pain UTI Plan is to continue with the Phenergan and Zofran. Patient needs to try and take his pain medications which should help with his problems. He also is being treated for urinary tract infection; do not have the sensitivity back on that yet. Patient probably needs an EGD as an outpatient I do not think he needs one now unless he starts having some hematemesis. Patient was told to try drinking lots of fluids and avoid food at this time; then slowly increase to a soft diet if he does not have any vomiting. CT abdomen looked okay there is no signs of free fluid or perforation or inflammation or infectious process. He did have some air in the kidneys and I will speak to urology to see if this is a normal finding. No intervention at this time. Clinical Quality Measures DVT/VTE Risk/Contraindication: Risk Factor Score Per Nursin RFS Level Per Nursing on Admit: 2=Moderate SHRUTI EDWARDS DO Jun 11, 2018 17:04
[2018-06-11] MEDS: lisINopril 10 MG (PRINIVIL) TABLET PO SCH (20:37)
[2018-06-12] MEDS: oxyCODONE/APAP 10/325MG (PERCOCET 10) TABLET PO SCH ×5 (00:06→16:16)
[2018-06-12 03:50] VITALS: BP 118/60
[2018-06-12] MEDS: PIPERACILLIN/TAZO 4.5 GM/NS 100 ML IV SCH ×4 (04:04→12:55)
[2018-06-12 04:21] LABS: BASOPHILS % (AUTO) 0 % (0-10); EOSINOPHILS # (AUTO) 0.1 10^3/uL (0.0-0.3); EOSINOPHILS % (AUTO) 1 % (0-10); HEMATOCRIT 40 % (40-54); HEMOGLOBIN 13.9 G/DL (13.3-17.7); LYMPHOCYTES # (AUTO) 2.9 X 10^3 (1.0-4.0); LYMPHOCYTES % (AUTO) 29 % (12-44); MEAN CORPUSCULAR HEMOGLOBIN 28 PG (25-34); MEAN CORPUSCULAR HGB CONC 35 G/DL (32-36); MEAN CORPUSCULAR VOLUME 80 FL (80-99); MEAN PLATELET VOLUME 10.4 FL (7.4-10.4); MONOCYTES # (AUTO) 0.6 X 10^3 (0.0-1.0); MONOCYTES % (AUTO) 7 % (0-12); NEUTROPHILS # (AUTO) 6.1 X 10^3 (1.8-7.8); NEUTROPHILS % (AUTO) 63 % (42-75); PLATELET COUNT 299 10^3/uL (130-400); RED BLOOD COUNT 4.98 10^6/uL (4.35-5.85); WHITE BLOOD COUNT 9.8 10^3/uL (4.3-11.0)
[2018-06-12 04:40] LABS: ALBUMIN 3.8 GM/DL (3.2-4.5); BILIRUBIN,TOTAL 0.8 MG/DL (0.1-1.0); CALCIUM 8.6 MG/DL (8.5-10.1); CREATININE SERUM 1.28 MG/DL (0.60-1.30); POTASSIUM 3.7 MMOL/L (3.6-5.0); TOTAL PROTEIN 6.4 GM/DL (6.4-8.2)
[2018-06-12] MEDS: 1/2 NS W/KCL 20 MEQ/L 1,000 ML IV SCH (07:03)
[2018-06-12 08:00] VITALS: BP 145/78
[2018-06-12] MEDS: amLODIPine 5 MG (NORVASC) TAB PO SCH (08:58)
[2018-06-12] MEDS: lisINopril 10 MG (PRINIVIL) TABLET PO SCH (08:58)
[2018-06-12] MEDS: PREGABALIN 75 MG (LYRICA) CAP PO SCH ×2 (08:58→12:55)
[2018-06-12] MEDS: PANTOPRAZOLE 40 MG (PROTONIX) VIAL IV SCH (08:58)
[2018-06-12] MEDS ORDERED: METO-310 PO (10:07)
[2018-06-12] MEDS ORDERED: ONDA8TAB13 PO (10:07)
[2018-06-12] MEDS ORDERED: CEFD300C3 PO (10:07)
[2018-06-12] MEDS ORDERED: SCOP1PAT17 TD (10:07)
[2018-06-12] MEDS ORDERED: OMEP40CA36 PO (10:07)
[2018-06-12] MEDS ORDERED: LISI10TA2 PO (10:07)
--- NOTE | 2018-06-12 10:10 | Discharge Summary-Hospitalist ---
ABRIL KESY DO 06/12/18 1010: Diagnosis/Chief Complaint Date of Admission Jun 09, 2018 at 22:30 Date of Discharge Discharge Date: Jun 12, 2018 Discharge Diagnosis (1) Nausea and vomiting Status: Resolved (2) Hypokalemia Status: Resolved (3) Acute renal insufficiency Status: Resolved (4) History of rectal cancer Status: Chronic (5) Gastroenteritis and colitis, viral Status: Resolved (6) Urinary tract infection due to Klebsiella species Status: Acute Discharge Summary Discharge Physical Exam Allergies: Coded Allergies: morphine (Verified Allergy, Intermediate, 01/01/17) codeine (Verified Adverse Reaction, Unknown, NAUSEA, 01/01/17) Vitals & I&Os Vital Signs Date Time Temp Pulse Resp B/P (MAP) Pulse Ox O2 Delivery O2 Flow Rate FiO2 06/12/18 17:00 68 16 119/62 95 Room Air 06/12/18 16:00 97.9 General Appearance: No Apparent Distress, WD/WN Respiratory: Chest Non Tender, Lungs Clear, Normal Breath Sounds, No Accessory Muscle Use, No Respiratory Distress Cardiovascular: Regular Rate, Rhythm, No Edema, No Gallop, No JVD, No Murmur, Normal Peripheral Pulses Neurologic/Psychiatric: Alert, Oriented x3, No Motor/Sensory Deficits, Normal Mood/Affect Hospital Course Hospital course: patient was admitted for refractory N/V and pre-syncope. Pt was started on IVF along with anti-emetics. Dr Henry saw him in consultation and Scop patch was placed along with multiple other meds to help with N/V. Chronic pain meds were restarted to help avoid withdrawal and he was deemed stable for DC on PO abx to complete UTI treatment. Labs (last 24 hrs) Laboratory Tests 06/12/18 04:05: White Blood Count 9.8, Red Blood Count 4.98, Hemoglobin 13.9, Hematocrit 40, Mean Corpuscular Volume 80, Mean Corpuscular Hemoglobin 28, Mean Corpuscular Hemoglobin Concent 35, Red Cell Distribution Width 15.0H, Platelet Count 299, Mean Platelet Volume 10.4, Neutrophils (%) (Auto) 63, Lymphocytes (%) (Auto) 29 , Monocytes (%) (Auto) 7, Eosinophils (%) (Auto) 1, Basophils (%) (Auto) 0, Neutrophils # (Auto) 6.1, Lymphocytes # (Auto) 2.9, Monocytes # (Auto) 0.6, Eosinophils # (Auto) 0.1, Basophils # (Auto) 0.0, Sodium Level 136, Potassium Level 3.7, Chloride Level 107, Carbon Dioxide Level 18L, Anion Gap 11, Blood Urea Nitrogen 12, Creatinine 1.28, Estimat Glomerular Filtration Rate 59, BUN/ Creatinine Ratio 9, Glucose Level 86, Calcium Level 8.6, Corrected Calcium 8.8, Total Bilirubin 0.8, Aspartate Amino Transf (AST/SGOT) 25, Alanine Aminotransferase (ALT/SGPT) 25, Alkaline Phosphatase 68, Total Protein 6.4, Albumin 3.8 Microbiology 06/09/18 Blood Culture - Preliminary, Resulted No growth 06/10/18 C. difficile GDH Antigen & Toxins - Final, Complete 06/09/18 Urine Culture - Final, Complete Klebsiella pneumoniae Escherichia coli Patient resulted labs reviewed. Pending Labs Discussion & Recommendations Discharge Planning: <30 minutes discharge planning Discharge Home Medications: Active Scripts Active Reglan (Metoclopramide HCl) 10 Mg Tablet 10 Mg PO ACHS Ondansetron Odt (Ondansetron) 8 Mg Tab.rapdis 8 Mg PO Q8H PRN Omeprazole 40 Mg Capsule.dr 40 Mg PO DAILY Scopolamine 1 Each Patch.td.3 1 Each TD Q72H Cefdinir 300 Mg Capsule 300 Mg PO BID Lisinopril 10 Mg Tablet 10 Mg PO DAILY Reported Excedrin Migraine Caplet (Aspirin/Acetaminophen/Caffeine) 1 Each Tablet 2 Tab PO DAILY PRN Promethazine Tablet (Promethazine HCl) 25 Mg Tablet 25 Mg PO Q6H PRN Amlodipine Besylate 10 Mg Tablet 10 Mg PO DAILY Lyrica (Pregabalin) 150 Mg Capsule 150 Mg PO TID Sertraline HCl 100 Mg Tablet 100 Mg PO DAILY PRN Oxycodone-Acetaminophen 10-325 (Oxycodone HCl/Acetaminophen) 1 Each Tablet 1 Tab PO Q4H Oxycodone HCl 30 Mg Tablet 30 Mg PO BID PRN Instructions to patient/family Please see electronic discharge instructions given to patient. Clinical Quality Measures DVT/VTE Risk/Contraindication: Risk Factor Score Per Nursin RFS Level Per Nursing on Admit: 2=Moderate SHAY CONTRERAS MED STUDENT 06/12/18 1139: Discharge Summary Discharge Physical Exam Allergies: Coded Allergies: morphine (Verified Allergy, Intermediate, 01/01/17) codeine (Verified Adverse Reaction, Unknown, NAUSEA, 01/01/17) Respiratory: Chest Non Tender, Lungs Clear, Normal Breath Sounds, No Accessory Muscle Use, No Respiratory Distress Cardiovascular: Regular Rate, Rhythm, No Edema, No Gallop, No JVD, No Murmur, Normal Peripheral Pulses Gastrointestinal: Normal Bowel Sounds, No Organomegaly, No Pulsatile Mass, Non Tender Skin: Normal Color, Warm/Dry Neurologic/Psychiatric: Alert, Oriented x3, No Motor/Sensory Deficits, Normal Mood/Affect Hospital Course The patient presented to the [facility] ER on 06/09 with a chief complaint of nausea and vomiting that started on the and has progressively gotten worse. He was also complaining of feeling lightheaded and dizzy when standing up. He has a previous history of rectal cancer with a partial colectomy and bladder removal with urostomy. He denied any sick contacts or blood in his vomit. His nausea and vomiting improved over several days and he will be discharged today. Problem Qualifiers (1) Nausea and vomiting: Vomiting type: unspecified ABRIL KEYS DO Jun 12, 2018 10:10 SHAY CONTRERAS MED STUDENT Jun 12, 2018 11:39
[2018-06-12 12:00] VITALS: BP 152/76
--- NOTE | 2018-06-12 13:25 | Progress Note ---
Subjective Time Seen by a Provider: 11:47 Subjective/Events-last exam Pt seen and examined, states his pain is a little better controlled but he still had emesis today. Today it was after eating, "no dry heaves today." He is hungry, just unable to keep solids down. Review of Systems General: No Chills, No Night Sweats Pulmonary: No Dyspnea, No Cough Cardiovascular: No: Chest Pain, Palpitations Gastrointestinal: Nausea, Vomiting, Abdominal Pain Focused Exam Lactate Level 06/09/18 19:28: Lactic Acid Level 1.70 Objective Exam Vital Signs Date Time Temp Pulse Resp B/P (MAP) Pulse Ox O2 Delivery O2 Flow Rate FiO2 06/12/18 08:00 97 Room Air 06/12/18 08:00 98.2 64 20 145/78 (100) 97 Room Air 06/12/18 03:50 98.0 82 20 118/60 (79) 97 Room Air 06/11/18 23:53 99.1 68 18 135/81 (99) 95 Room Air 06/11/18 19:15 98.4 70 16 133/75 (94) 95 Room Air 06/11/18 15:25 98.6 68 16 125/70 (88) 94 Room Air I & O 06/12/18 07:00 Intake Total 3510 ml Output Total 1400 ml Balance 2110 ml Capillary Refill : Less Than 3 Seconds General Appearance: No Apparent Distress, WD/WN, Chronically ill Respiratory: Chest Non Tender, Lungs Clear, Normal Breath Sounds, No Accessory Muscle Use, No Respiratory Distress Cardiovascular: Regular Rate, Rhythm, No Edema, No Gallop, No JVD, No Murmur, Normal Peripheral Pulses Peripheral Pulses: 2+ Radial Pulses (R), 2+ Radial Pulses (L) Gastrointestinal: normal bowel sounds, soft, no pulsatile mass, other ( urostomy present, pink and functioning) Neurologic/Psychiatric: Alert, Oriented x3, No Motor/Sensory Deficits, Normal Mood/Affect Skin: Normal Color, Warm/Dry Results Lab Laboratory Tests 06/12/18 04:05: White Blood Count 9.8, Red Blood Count 4.98, Hemoglobin 13.9, Hematocrit 40, Mean Corpuscular Volume 80, Mean Corpuscular Hemoglobin 28, Mean Corpuscular Hemoglobin Concent 35, Red Cell Distribution Width 15.0H, Platelet Count 299, Mean Platelet Volume 10.4, Neutrophils (%) (Auto) 63, Lymphocytes (%) (Auto) 29 , Monocytes (%) (Auto) 7, Eosinophils (%) (Auto) 1, Basophils (%) (Auto) 0, Neutrophils # (Auto) 6.1, Lymphocytes # (Auto) 2.9, Monocytes # (Auto) 0.6, Eosinophils # (Auto) 0.1, Basophils # (Auto) 0.0, Sodium Level 136, Potassium Level 3.7, Chloride Level 107, Carbon Dioxide Level 18L, Anion Gap 11, Blood Urea Nitrogen 12, Creatinine 1.28, Estimat Glomerular Filtration Rate 59, BUN/ Creatinine Ratio 9, Glucose Level 86, Calcium Level 8.6, Corrected Calcium 8.8, Total Bilirubin 0.8, Aspartate Amino Transf (AST/SGOT) 25, Alanine Aminotransferase (ALT/SGPT) 25, Alkaline Phosphatase 68, Total Protein 6.4, Albumin 3.8 Microbiology 06/09/18 Blood Culture - Preliminary, Resulted No growth 06/10/18 C. difficile GDH Antigen & Toxins - Final, Complete 06/09/18 Urine Culture - Final, Complete Klebsiella pneumoniae Escherichia coli Assessment/Plan Assessment/Plan Assessment/Plan Intractable Nausea and Vomiting Abdominal Pain UTI Would continue with the Phenergan and Zofran at home. Patient taking his pain medications which have helped pain, but not all of his nausea. Continue ABX for UTI. Patient probably still needs an EGD as an outpatient. Patient was told to try drinking lots of fluids and increase food slowly to a soft diet. CT abdomen looked okay there is no signs of free fluid or perforation or inflammation or infectious process. Spoke with Urology and as long as he is not symptomatic the air in the kidneys is most likely a normal finding. No intervention at this time. Clinical Quality Measures DVT/VTE Risk/Contraindication: Risk Factor Score Per Nursin RFS Level Per Nursing on Admit: 2=Moderate SHRUTI EDWARDS DO Jun 12, 2018 13:24
[2018-06-12 16:00] VITALS: BP 119/62
[2018-06-12 17:00] VITALS: BP 119/62
== END 2018-06-12 10:09 | disposition home or self-care (01) ==
LOC: EDUNIT# 17:04 → ER 17:05 → UNDOADMOB 22:05 → 4TH 22:05
PROVIDERS: ADMIT Family Medicine; ATTEND Internal Medicine
DX: A08.4 Viral intestinal infection, unspecified (principal); E87.6 Hypokalemia; N28.9 Disorder of kidney and ureter, unspecified; R55 Syncope and collapse; N39.0 Urinary tract infection, site not specified; B96.1 Klebsiella pneumoniae [K. pneumoniae] as the cause of diseases classified elsewhere; B96.89 Other specified bacterial agents as the cause of diseases classified elsewhere; I10 Essential (primary) hypertension; F41.9 Anxiety disorder, unspecified; F32.9 Major depressive disorder, single episode, unspecified; G89.29 Other chronic pain; Z85.048 Personal history of other malignant neoplasm of rectum, rectosigmoid junction, and anus; Z90.6 Acquired absence of other parts of urinary tract; Z90.49 Acquired absence of other specified parts of digestive tract; Z79.82 Long term (current) use of aspirin; Z79.899 Other long term (current) drug therapy; Z88.5 Allergy status to narcotic agent; Z92.21 Personal history of antineoplastic chemotherapy; Z92.3 Personal history of irradiation
CPT/HCPCS: 36415; 74177; 80053; 80306; 81000; 83605; 83690; 83735; 85007; 85025; 85027; 86141; 87040; 87077; 87088; 87186; 87324; 87449; G0378

== ENCOUNTER → 2019-02-27 | Outpatient (CLI) | payer MEDICAID, MEDICARE ==
[~2019-02-27] MED LIST changes: +AMLO10TA7 PO; +CEFD300C3 PO; -GABA600T2 PO; +GBPN600T PO; +LISI10TA2 PO; +METO-310 PO; +OMEP40CA36 PO; +PROM12.511 PO; -PROM12.59 PO; +SCOP1PAT17 TD
[2019-02-27 09:20] LABS: BASOPHILS % (AUTO) 0 % (0-10); EOSINOPHILS # (AUTO) 0.2 10^3/uL (0.0-0.3); EOSINOPHILS % (AUTO) 5 % (0-10); HEMATOCRIT 39 % (40-54); HEMOGLOBIN 12.5 G/DL (13.3-17.7); LYMPHOCYTES # (AUTO) 1.2 X 10^3 (1.0-4.0); LYMPHOCYTES % (AUTO) 23 % (12-44); MEAN CORPUSCULAR HEMOGLOBIN 26 PG (25-34); MEAN CORPUSCULAR HGB CONC 32 G/DL (32-36); MEAN CORPUSCULAR VOLUME 80 FL (80-99); MEAN PLATELET VOLUME 10.5 FL (7.4-10.4); MONOCYTES # (AUTO) 0.3 X 10^3 (0.0-1.0); MONOCYTES % (AUTO) 6 % (0-12); NEUTROPHILS # (AUTO) 3.5 X 10^3 (1.8-7.8); NEUTROPHILS % (AUTO) 66 % (42-75); PLATELET COUNT 199 10^3/uL (130-400); RED CELL DISTRIBUTION WIDTH 14.9 % (10.0-14.5); WHITE BLOOD COUNT 5.3 10^3/uL (4.3-11.0)
[2019-02-27 09:40] LABS: ALBUMIN 3.9 GM/DL (3.2-4.5); BILIRUBIN,TOTAL 0.5 MG/DL (0.1-1.0); CALCIUM 8.9 MG/DL (8.5-10.1); CREATININE SERUM 1.31 MG/DL (0.60-1.30); POTASSIUM 3.8 MMOL/L (3.6-5.0); TOTAL PROTEIN 6.8 GM/DL (6.4-8.2)
== END ==
LOC: EDSTATUS 04-16 12:33 → ONC 08:58
PROVIDERS: ATTEND Internal Medicine Hematology & Oncology
DX: C21.0 Malignant neoplasm of anus, unspecified (principal)
CPT/HCPCS: 36415; 80053; 82378; 85025

== ENCOUNTER → 2019-02-28 | Outpatient (CLI) | payer MEDICAID, MEDICARE | LOC: ONC 10:06 | PROVIDERS: ATTEND Internal Medicine Hematology & Oncology | DX: Z08 Encounter for follow-up examination after completed treatment for malignant neoplasm (principal); Z85.048 Personal history of other malignant neoplasm of rectum, rectosigmoid junction, and anus; D50.9 Iron deficiency anemia, unspecified; F33.9 Major depressive disorder, recurrent, unspecified; G47.00 Insomnia, unspecified; N39.490 Overflow incontinence; R79.89 Other specified abnormal findings of blood chemistry; G62.89 Other specified polyneuropathies; K31.84 Gastroparesis; K21.9 Gastro-esophageal reflux disease without esophagitis; Z79.899 Other long term (current) drug therapy; Z92.3 Personal history of irradiation; Z92.21 Personal history of antineoplastic chemotherapy; Z87.440 Personal history of urinary (tract) infections | CPT/HCPCS: 99213 ==

== ENCOUNTER 2019-08-15 17:34 | Emergency (ER) | payer MEDICAID ==
[~2019-08-15] VITALS: Ht 170 cm; Wt 97.7 kg
[~2019-08-15 17:34] MED LIST changes: +OMEP40CA27 PO; -OMEP40CA36 PO
--- NOTE | 2019-08-15 18:03 | ED Back Pain ---
General Chief Complaint: Back Problems Stated Complaint: BACK PAIN Nursing Triage Note: TO ROOM 06 VIA AMB LEANED OVER WITH COMPLAINTS OF BACK PAIN STARTING TODAY. DENIES INJURY . Nursing Sepsis Screen: No Definite Risk Source of Information: Patient Exam Limitations: No Limitations History of Present Illness Date Seen by Provider: Aug 15, 2019 Time Seen by Provider: 18:01 Initial Comments To ER per private vehicle from home with reports of midline low back pain that began earlier today after taking his dog for a walk. No injury no falls. No fever or chills. History of rectal cancer with complex medical history as listed below. 1. Rectal Cancer Stage II [id number]- s/p chemotherapy and radiation stopped secondary to intolerance. Last chemo 07/16/14 2. Gastroparesis secondary #1 3. Severe Gastritis per EGD 07-30 Lauren 4. Small hiatal hernia 3cm 07-30 Lauren 5. Grade B reflux esophagitis 07/30 6. Recurrent episodes of nausea and vomiting secondary to #2, and #3 7. Bladder Removal 8. HTN 9. C-Diff colitis 10. Mood disorder with depression 11. Recurrent Headaches 12. Recurrent admissions for dehydration secondary and acute renal insufficiency secondary to #2, #3, #6 13. Recurrent hypokalemia and hypomagnesia secondary to other co-morbidities Past Surgical History 1. Placement of JJ stent for hydronephrosis 03-06-13 Rene 2. EGD 07-30 Lauren, severe gastritis 3. Diverting loop ileostomy with colon resection 12-06-12 Joey 4. Reversal of ileostomy 04-18-13 5. Colonoscopy x2 by Dr. Aguilar 6. Nephrostomy tube placement with cystectomy 03/30 [facility] 7. Left Arm Fracture 04/2017 Location: Lumbar Spine Timing/Duration: 1-2 Days Severity: Moderate Pain/Injury Location: Back Radiation: Buttocks Associated Symptoms: lower back pain Allergies and Home Medications Allergies Coded Allergies: morphine (Verified Allergy, Intermediate, 01/01/17) codeine (Verified Adverse Reaction, Unknown, NAUSEA, 01/01/17) Home Medications Amlodipine Besylate 10 Mg Tablet, 10 MG PO DAILY, (Reported) Aspirin/Acetaminophen/Caffeine 1 Each Tablet, 2 TAB PO DAILY PRN for HEADACHE, (Reported) Cefdinir 300 Mg Capsule, 300 MG PO BID Prescribed by: ABRIL KEYS on 11/1006 Lisinopril 10 Mg Tablet, 10 MG PO DAILY Prescribed by: ABRIL KEYS on 06/12/181006 Metoclopramide HCl 10 Mg Tablet, 10 MG PO ACHS Prescribed by: ABRIL KEYS on 06/12/181006 Omeprazole 40 Mg Capsule.dr, 40 MG PO DAILY Prescribed by: ABRIL KEYS on 06/12/181006 Ondansetron 8 Mg Tab.rapdis, 8 MG PO Q8H PRN for NAUSEA/VOMITING-1ST LINE Prescribed by: ABRIL KEYS on 06/12/181006 Oxycodone HCl 30 Mg Tablet, 30 MG PO BID PRN for SEVERE PAIN, (Reported) Oxycodone HCl/Acetaminophen 1 Each Tablet, 1 TAB PO Q4H, (Reported) Pregabalin 150 Mg Capsule, 150 MG PO TID, (Reported) Promethazine HCl 25 Mg Tablet, 25 MG PO Q6H PRN for NAUSEA/VOMITING-2ND LINE, (Reported) Scopolamine 1 Each Patch.td.3, 1 EACH TD Q72H Prescribed by: ABRIL KEYS on 06/12/181006 Sertraline HCl 100 Mg Tablet, 100 MG PO DAILY PRN for EMOTIONS, (Reported) Patient Home Medication List Home Medication List Reviewed: Yes Review of Systems Constitutional: see HPI EENTM: see HPI Respiratory: no symptoms reported Cardiovascular: no symptoms reported Genitourinary: no symptoms reported Musculoskeletal: see HPI, back pain Skin: no symptoms reported Psychiatric/Neurological: No Symptoms Reported Past Hykuqmy-Iwyvfh-Kuante Hx Patient Social History Alcohol Use: Denies Use Recreational Drug Use: No Smoking Status: Never a Smoker 2nd Hand Smoke Exposure: No Recent Foreign Travel: No Contact w/Someone Who Travel: No Recent Infectious Disease Expo: No Recent Hopitalizations: No Immunizations Up To Date Tetanus Booster (TDap): Unknown PED Vaccines UTD: No Seasonal Allergies Seasonal Allergies: No Past Medical History Surgeries: Yes (urostomy, colonresection) Abdominal, Bladder Surgery, Bowel Surgery, Cystectomy, Orthopedic, Rectal, Renal, Vascular Surgery Respiratory: No Currently Using CPAP: No Currently Using BIPAP: No Cardiac: Yes Hypertension Neurological: Yes Headaches /Migraines Reproductive Disorders: Yes (E.D.) Sexually Transmitted Disease: No HIV/AIDS: No Genitourinary: Yes Neurogenic Bladder, UTI-Chronic Gastrointestinal: Yes Colitis Musculoskeletal: No Endocrine: No HEENT: No Loss of Vision: Denies Hearing Impairment: Denies Cancer: Yes Rectal Did You Recieve Any Treatments: Yes What Type of Treatment Did You: Chemotherapy, Radiation, Surgical Intervention Psychosocial: Yes Anxiety, Depression Integumentary: No Blood Disorders: No Adverse Reaction/Blood Tranf: No Family Medical History Cataract 03 FATHER, Onset:Unknown Chest pain 03 FATHER, Onset:50's - 60 Family history: Allergy 03 MOTHER Family history: Arthritis 03 FATHER 03 MOTHER Family history: Asthma 03 MOTHER Family history: Cardiovascular disease 03 FATHER Family history: Diabetes mellitus 03 FATHER 03 MOTHER Family history: Hypertension 03 FATHER 03 MOTHER Headache 03 FATHER 03 MOTHER Heart disease 03 FATHER History of - respiratory disease 03 MOTHER Hypercholesterolemia 03 FATHER 03 MOTHER Kidney disease 03 MOTHER Psychotic disorder 03 MOTHER Visual impairment 03 FATHER 03 MOTHER No Family History of: Abdominal aortic aneurysm Sreedhar's disease Alcoholism Aphasia Cancer Cancer of colon Congenital heart disease Congestive heart failure Cystic fibrosis Dementia Dysphagia Family history: Alzheimer's disease Family history: Breast disease Family history: Coronary thrombosis Family history: Gastrointestinal disease Family history: Glaucoma Family history: Osteoporosis Family history: Thyroid disorder Hearing loss Hereditary disease History of - anemia History of - disorder History of drug abuse Human immunodeficiency virus (HIV) seropositivity Infertile Malignant neoplasm of lung Myocardial infarction Parkinson's disease Prostate cancer Seizure disorder Stroke Tuberculosis CAD Under 55 Years Old, COPD, Diabetes, Hypertension Physical Exam Vital Signs Vital Signs - First Documented 08/15/19 17:40 Temp 36.9 Pulse 108 Resp 16 B/P (MAP) 197/108 (137) Pulse Ox 96 O2 Delivery Room Air Capillary Refill : Less Than 3 Seconds Height, Weight, BMI Height: 5'7.00" Weight: 197lbs. 3.0oz. 89.110717ev; 33.00 BMI Method:Estimated General Appearance: No Apparent Distress, WD/WN HEENT: PERRL/EOMI, TMs Normal Respiratory: No Accessory Muscle Use, No Respiratory Distress Gastrointestinal: Non Tender, Soft Neurologic/Psychiatric: Oriented x3, Other (lethargic. In fact, speech is slurred, eyes closed frequently, falls asleep frequently during conversation.) Progress/Results/Core Measures Results/Orders Lab Results Laboratory Tests Test 08/15/19 18:20 08/15/19 20:10 Range/Units White Blood Count 7.6 4.3-11.0 10^3/uL Red Blood Count 4.93 4.35-5.85 10^6/uL Hemoglobin 12.9 L 13.3-17.7 G/DL Hematocrit 39 L 40-54 % Mean Corpuscular Volume 79 L 80-99 FL Mean Corpuscular Hemoglobin 26 25-34 PG Mean Corpuscular Hemoglobin Concent 33 32-36 G/DL Red Cell Distribution Width 15.5 H 10.0-14.5 % Platelet Count 191 130-400 10^3/uL Mean Platelet Volume 10.5 H 7.4-10.4 FL Neutrophils (%) (Auto) 63 42-75 % Lymphocytes (%) (Auto) 23 12-44 % Monocytes (%) (Auto) 10 0-12 % Eosinophils (%) (Auto) 5 0-10 % Basophils (%) (Auto) 0 0-10 % Neutrophils # (Auto) 4.7 1.8-7.8 X 10^3 Lymphocytes # (Auto) 1.7 1.0-4.0 X 10^3 Monocytes # (Auto) 0.8 0.0-1.0 X 10^3 Eosinophils # (Auto) 0.4 H 0.0-0.3 10^3/uL Basophils # (Auto) 0.0 0.0-0.1 10^3/uL Erythrocyte Sedimentation Rate 34 H 0-30 MM/HR Prothrombin Time 12.7 12.2-14.7 SEC INR Comment 0.9 0.8-1.4 Sodium Level 141 135-145 MMOL/L Potassium Level 3.5 L 3.6-5.0 MMOL/L Chloride Level 109 H 98-107 MMOL/L Carbon Dioxide Level 19 L 21-32 MMOL/L Anion Gap 13 5-14 MMOL/L Blood Urea Nitrogen 16 7-18 MG/DL Creatinine 1.20 0.60-1.30 MG/DL Estimat Glomerular Filtration Rate > 60 BUN/Creatinine Ratio 13 Glucose Level 100 70-105 MG/DL Calcium Level 9.0 8.5-10.1 MG/DL Corrected Calcium 8.9 8.5-10.1 MG/DL Total Bilirubin 0.5 0.1-1.0 MG/DL Aspartate Amino Transf (AST/SGOT) 43 H 5-34 U/L Alanine Aminotransferase (ALT/SGPT) 39 0-55 U/L Alkaline Phosphatase 85 40-136 U/L C-Reactive Protein High Sensitivity 3.22 H 0.00-0.50 MG/DL Total Protein 7.1 6.4-8.2 GM/DL Albumin 4.1 3.2-4.5 GM/DL Urine Color YELLOW Urine Clarity CLOUDY Urine pH 6.0 5-9 Urine Specific [place] 1.020 1.016-1.022 Urine Protein 1+ H NEGATIVE Urine Glucose (UA) NEGATIVE NEGATIVE Urine Ketones NEGATIVE NEGATIVE Urine Nitrite POSITIVE H NEGATIVE Urine Bilirubin NEGATIVE NEGATIVE Urine Urobilinogen 0.2 < = 1.0 MG/DL Urine Leukocyte Esterase 2+ H NEGATIVE Urine RBC (Auto) 1+ H NEGATIVE Urine RBC 2-5 H /HPF Urine WBC 50-100 H /HPF Urine Squamous Epithelial Cells RARE /HPF Urine Crystals PRESENT H /LPF Urine Amorphous Sediment LARGE FLORES URATES H /LPF Urine Bacteria LARGE H /HPF Urine Casts NONE /LPF Urine Mucus NEGATIVE /LPF Urine Culture Indicated YES My Orders Orders - STEVEN MCCANN APRN Cbc With Automated Diff (08/15/19 17:59) Comprehensive Metabolic Panel (08/15/19 17:59) Erythrocyte Sedimentation Rate (08/15/19 17:59) Hs C Reactive Protein (08/15/19 17:59) Protime With Inr (08/15/19 17:59) Ed Iv/Invasive Line Start (08/15/19 17:59) Ct Abdomen/Pelvis W (08/15/19 17:59) Ct Lumbar Spine Wo (08/15/19 17:59) Ketorolac Injection (Toradol Injection) (08/15/19 18:45) Ketamine Syringe (Ed Only) (Ketamine Syr (08/15/19 18:45) Ns (Ivpb) (Sodium Chloride 0.9%) (08/15/19 18:45) Iohexol Injection (Omnipaque 350 Mg/Ml 1 (08/15/19 19:15) Received Contrast (Hold Metformin- Contr (08/15/19 19:15) Sodium Chloride Flush (Catheter Flush Sy (08/15/19 19:15) Ns (Ivpb) (Sodium Chloride 0.9% Ivpb Bag (08/15/19 19:15) Ua Culture If Indicated (08/15/19 20:06) Urine Culture (1/30/20 20:10) Medications Given in ED Current Medications Medications Dose Ordered Sig/Kenny Route Start Time Stop Time Status Last Admin Dose Admin Iohexol 100 ml ONCE ONCE IV 08/15/19 19:15 08/15/19 19:16 DC 08/15/19 19:34 100 ML Ketamine HCl 20 mg ONCE ONCE IV 08/15/19 18:45 08/15/19 18:46 DC 08/15/19 18:49 20 MG Ketorolac Tromethamine 30 mg ONCE ONCE IVP 08/15/19 18:45 08/15/19 18:46 DC 08/15/19 18:49 30 MG Sodium Chloride 10 ml NEEDED PRN IV 08/15/19 19:15 08/15/19 19:35 10 ML Sodium Chloride 100 ml ONCE ONCE IV 08/15/19 19:15 08/15/19 19:16 DC 08/15/19 19:35 80 ML Sodium Chloride 250 ml @ 999 mls/hr Q16M ONCE IV 08/15/19 18:45 08/15/19 19:00 DC 08/15/19 18:49 999 MLS/HR Vital Signs/I&O 08/15/19 17:40 Temp 36.9 Pulse 108 Resp 16 B/P (MAP) 197/108 (137) Pulse Ox 96 O2 Delivery Room Air Blood Pressure Mean: 137 Diagnostic Imaging Diagonstic Imaging: CT Comments NAME: HAMLETWAYLON Denita Dean [facility] REC#: [id number] PT STATUS: REG ER : 1965 PHYSICIAN: STEVEN MCCANN FIELD GEOLOGIST ADMIT DATE: 08/15/19/ER Draft Date of Exam:08/15/19 CT ABDOMEN/PELVIS W PROCEDURE: CT abdomen and pelvis with contrast. TECHNIQUE: Multiple contiguous axial images were obtained through the abdomen and pelvis after administration of intravenous contrast. Auto Exposure Controls were utilized during the CT exam to meet ALARA standards for radiation dose reduction. INDICATION: 53-year-old male presents with low back pain and abdominal pain after walking his dog. Patient has a history of rectal cancer and also had a previous cystectomy. COMPARISONS: 06/09/2018. FINDINGS: Lung bases are clear. Cardiac contour is normal. Liver shows mild grade 1 steatosis. There is no intraparenchymal mass or ductal dilatation. Gallbladder is moderately distended, but there is no radiopaque stone, sludge, wall thickening, or pericholecystic fluid. Spleen is borderline enlarged. GE junction is normal. Stomach and duodenal sweep are unremarkable. Pancreas shows areas of fatty change, but overall shows sharp margins. Adrenals are normal. Kidneys show mild cortical thinning, but there is symmetrical perfusion and excretion of contrast. There is mild left hydronephrosis and moderate left hydroureter. The right ureter is normal in caliber. There is an ileal conduit into the left lower quadrant. There is a previous bladder resection. Nonopacified loops of small bowel are grossly normal. There is a moderate amount of fecal load in the colon to the rectum. There is diffuse mucosal thickening in the distal sigmoid colon and rectosigmoid junction. There is a previous rectosigmoid anastomosis. There is no free air, free fluid, or adenopathy. Visualized vasculature shows normal caliber of the aorta, iliac and femoral arteries with a few nonaneurysmal calcifications. There is normal origin of the visceral arteries. Bone windows show no lytic or blastic changes. IMPRESSION: 1. Smwr-rb-yuxmwjjm left hydronephrosis and left hydroureter. 2. There is a diverting ileal conduit. Patient is status post bladder resection. 3. There is a previous enteric anastomosis at the rectosigmoid junction. There is also diffuse mucosal thickening within the distal sigmoid colon to the rectum. Differential includes inflammation and infection, correlate clinically with short-term follow-up. 4. Mild hepatic steatosis. Additional nonemergent findings as described above. Dictated on workstation # [id number] Dict: 08/15/191944 Trans: 08/15/191954 [id number] Interpreted by: JOSLYN CONROY MD Electronically signed by: NAME: HAMLETWAYLON Denita Dean MED REC#: [id number] PT STATUS: REG ER : 1965 PHYSICIAN: STEVEN MCCANN APRN ADMIT DATE: 08/15/19/ER Draft Date of Exam:08/15/19 CT LUMBAR SPINE WO EXAMINATION: CT of the lumbar spine without contrast dated 08/15/2019. TECHNIQUE: Multiple contiguous axial images were obtained through the lumbar spine without the use of intravenous contrast. Sagittal and coronal reformations were then performed. Auto Exposure Controls were utilized during the CT exam to meet ALARA standards for radiation dose reduction. INDICATION: Low back pain and abdominal pain after walking his dog. No known injury. History of rectal carcinoma. Correlation made to reconstructed imaging from a CT abdomen and pelvis dated 06/09/2018. FINDINGS: Alignment of the spine is preserved. No subluxations or acute fractures are appreciated. There appear to be likely bulging discs at, at least L3-L4 and L4-L5 without significant central stenosis by CT standards. Multilevel facet hypertrophy noted. The visualized intra-abdominal structures will be further characterized on a separate dedicated CT abdomen and pelvis. IMPRESSION: 1. Bulging disc material at L3-L4 and L4-L5 without significant central stenosis by CT standards. No acute osseous abnormality appreciated. 2. Not mentioned above, there do appear to be bilateral pars defects seen at the L3 level without listhesis. This is a chronic finding. Dictated on workstation # [id number] Dict: 08/15/191943 Trans: 08/15/191950 [id number] Interpreted by: EVERT GRAHAM MD Electronically signed by: Departure Communication (Admissions) Ketamine 0.2 mg/kg infused over 15 minutes mixed in 250 mL normal saline worked very well for pain control. Impression Primary Impression: Low back pain Qualified Codes: M54.5 - Low back pain Additional Impressions: Chronic narcotic dependence Urinary tract infection Disposition: HOME, SELF-CARE Condition: Stable Departure-Patient Inst. Decision time for Depature: 20:05 Referrals: NIKHIL PITTS DO (PCP) Primary Care Physician LINDA BENTLEY (Family) Primary Care Physician SHRUTI EDWARDS BRETT D DO KIDO, TAKAAKI MD Patient Instructions: Low Back Pain (DC) Add. Discharge Instructions: 1. Use your pain medication at home. You have some inflammatory changes around the rectum, this warrants follow-up with one of the surgeons listed or whoever did your surgery in 2013. You need to call tomorrow to make an appointment to be seen next week. All discharge instructions reviewed with patient and/or family. Voiced understanding. Scripts Cefuroxime Axetil (Cefuroxime) 250 Mg Tablet 250 MG PO BID, #14 TAB Prov: STEVEN MCCANN APRN 08/15/19 STEVEN MCCANN APRN Aug 15, 2019 18:03
[2019-08-15 18:28] LABS: BASOPHILS % (AUTO) 0 % (0-10); EOSINOPHILS # (AUTO) 0.4 10^3/uL (0.0-0.3); EOSINOPHILS % (AUTO) 5 % (0-10); HEMATOCRIT 39 % (40-54); HEMOGLOBIN 12.9 G/DL (13.3-17.7); LYMPHOCYTES # (AUTO) 1.7 X 10^3 (1.0-4.0); LYMPHOCYTES % (AUTO) 23 % (12-44); MEAN CORPUSCULAR HEMOGLOBIN 26 PG (25-34); MEAN CORPUSCULAR HGB CONC 33 G/DL (32-36); MEAN CORPUSCULAR VOLUME 79 FL (80-99); MEAN PLATELET VOLUME 10.5 FL (7.4-10.4); MONOCYTES # (AUTO) 0.8 X 10^3 (0.0-1.0); MONOCYTES % (AUTO) 10 % (0-12); NEUTROPHILS # (AUTO) 4.7 X 10^3 (1.8-7.8); NEUTROPHILS % (AUTO) 63 % (42-75); PLATELET COUNT 191 10^3/uL (130-400); RED CELL DISTRIBUTION WIDTH 15.5 % (10.0-14.5); WHITE BLOOD COUNT 7.6 10^3/uL (4.3-11.0)
[2019-08-15] MEDS ORDERED: NS (IVPB) 250 ML IV ONE (18:45)
[2019-08-15] MEDS ORDERED: KETAMINE/NaCl 50 MG/5 ML SYRINGE (ED ONLY) IV ONE (18:45)
[2019-08-15] MEDS ORDERED: KETOROLAC 30 MG/ML VIAL IVP ONE (18:45)
[2019-08-15 18:46] LABS: INR 0.9 (0.8-1.4); PROTHROMBIN TIME PATIENT 12.7 SEC (12.2-14.7)
[2019-08-15 18:47] LABS: ALANINE AMINOTRANSFERASE 39 U/L (0-55); ALBUMIN 4.1 GM/DL (3.2-4.5); ALKALINE PHOSPHATASE 85 U/L (40-136); BILIRUBIN,TOTAL 0.5 MG/DL (0.1-1.0); BUN/CREATININE RATIO 13; CARBON DIOXIDE 19 MMOL/L (21-32); CHLORIDE 109 MMOL/L (98-107); GFR ESTIMATED > 60; GLUCOSE 100 MG/DL (70-105); POTASSIUM 3.5 MMOL/L (3.6-5.0); SODIUM 141 MMOL/L (135-145); TOTAL PROTEIN 7.1 GM/DL (6.4-8.2)
[2019-08-15] MEDS ORDERED: HOLD METFORMIN - RECEIVED CONTRAST 20 ML VIAL IV SCH (19:15)
[2019-08-15] MEDS ORDERED: CATHETER FLUSH 10 ML SYR IV PRN (19:15)
[2019-08-15] MEDS ORDERED: NS 100 ML (IVPB) BAG IV ONE (19:15)
[2019-08-15] MEDS ORDERED: IOHEXOL 350 MG/ML 100 ML (OMNIPAQUE 350) VIAL IV ONE (19:15)
--- NOTE | 2019-08-15 19:51 | Diagnostic Imaging Report ---
EXAMINATION: CT of the lumbar spine without contrast dated 08/15/2019. TECHNIQUE: Multiple contiguous axial images were obtained through the lumbar spine without the use of intravenous contrast. Sagittal and coronal reformations were then performed. Auto Exposure Controls were utilized during the CT exam to meet ALARA standards for radiation dose reduction. INDICATION: Low back pain and abdominal pain after walking his dog. No known injury. History of rectal carcinoma. Correlation made to reconstructed imaging from a CT abdomen and pelvis dated 06/09/2018. FINDINGS: Alignment of the spine is preserved. No subluxations or acute fractures are appreciated. There appear to be likely bulging discs at, at least L3-L4 and L4-L5 without significant central stenosis by CT standards. Multilevel facet hypertrophy noted. The visualized intra-abdominal structures will be further characterized on a separate dedicated CT abdomen and pelvis. IMPRESSION: 1. Bulging disc material at L3-L4 and L4-L5 without significant central stenosis by CT standards. No acute osseous abnormality appreciated. 2. Not mentioned above, there do appear to be bilateral pars defects seen at the L3 level without listhesis. This is a chronic finding. Dictated by: Dictated on workstation # [id number]
--- NOTE | 2019-08-15 19:55 | Diagnostic Imaging Report ---
PROCEDURE: CT abdomen and pelvis with contrast. TECHNIQUE: Multiple contiguous axial images were obtained through the abdomen and pelvis after administration of intravenous contrast. Auto Exposure Controls were utilized during the CT exam to meet ALARA standards for radiation dose reduction. INDICATION: 53-year-old male presents with low back pain and abdominal pain after walking his dog. Patient has a history of rectal cancer and also had a previous cystectomy. COMPARISONS: 06/09/2018. FINDINGS: Lung bases are clear. Cardiac contour is normal. Liver shows mild grade 1 steatosis. There is no intraparenchymal mass or ductal dilatation. Gallbladder is moderately distended, but there is no radiopaque stone, sludge, wall thickening, or pericholecystic fluid. Spleen is borderline enlarged. GE junction is normal. Stomach and duodenal sweep are unremarkable. Pancreas shows areas of fatty change, but overall shows sharp margins. Adrenals are normal. Kidneys show mild cortical thinning, but there is symmetrical perfusion and excretion of contrast. There is mild left hydronephrosis and moderate left hydroureter. The right ureter is normal in caliber. There is an ileal conduit into the left lower quadrant. There is a previous bladder resection. Nonopacified loops of small bowel are grossly normal. There is a moderate amount of fecal load in the colon to the rectum. There is diffuse mucosal thickening in the distal sigmoid colon and rectosigmoid junction. There is a previous rectosigmoid anastomosis. There is no free air, free fluid, or adenopathy. Visualized vasculature shows normal caliber of the aorta, iliac and femoral arteries with a few nonaneurysmal calcifications. There is normal origin of the visceral arteries. Bone windows show no lytic or blastic changes. IMPRESSION: 1. Whyr-tp-ksyiggeb left hydronephrosis and left hydroureter. 2. There is a diverting ileal conduit. Patient is status post bladder resection. 3. There is a previous enteric anastomosis at the rectosigmoid junction. There is also diffuse mucosal thickening within the distal sigmoid colon to the rectum. Differential includes inflammation and infection, correlate clinically with short-term follow-up. 4. Mild hepatic steatosis. Additional nonemergent findings as described above. Dictated by: Dictated on workstation # [id number]
[2019-08-15 19:57] LABS: ERYTHROCYTE SEDIMENTATION RATE 34 MM/HR (0-30)
[2019-08-15 20:17] LABS: BILIRUBIN,URINE NEGATIVE (NEGATIVE); CLARITY,URINE CLOUDY; COLOR,URINE YELLOW; GLUCOSE, URINE (UA) NEGATIVE (NEGATIVE); KETONES,URINE NEGATIVE (NEGATIVE); LEUKOCYTE ESTERASE ,URINE 2+ (NEGATIVE); NITRITE,URINE POSITIVE (NEGATIVE); PROTEIN,URINE 1+ (NEGATIVE)
[2019-08-15 20:27] LABS: BACTERIA,URINE LARGE /HPF; WBC,URINE 50-100 /HPF
[2019-08-15 20:28] LABS: AMORPHOUS SEDIMENT,UR LARGE AMOR URATES /LPF; SQUAMOUS EPITHELIAL CELL,UR RARE /HPF
[2019-08-15] MEDS ORDERED: CEFU250T80 PO (20:41)
[2019-08-15] MEDS ORDERED: cefTRIAXone FOR IV USE 1,000 MG in WATER (STERILE) FOR INJECTION 10 ML IV ONE (20:45)
[2019-08-15 20:49] VITALS: BP 153/97
== END 2019-08-15 20:52 | disposition home or self-care (01) ==
LOC: EDUNIT# 17:34 → ER 17:35
DX: M54.5 Low back pain (principal); F11.20 Opioid dependence, uncomplicated; N39.0 Urinary tract infection, site not specified; I10 Essential (primary) hypertension; F41.9 Anxiety disorder, unspecified; F32.9 Major depressive disorder, single episode, unspecified; Z88.5 Allergy status to narcotic agent; Z79.82 Long term (current) use of aspirin; Z85.048 Personal history of other malignant neoplasm of rectum, rectosigmoid junction, and anus; Z96.0 Presence of urogenital implants; Z93.2 Ileostomy status; Z93.6 Other artificial openings of urinary tract status
CPT/HCPCS: 36415; 72131; 74177; 80053; 81000; 85025; 85610; 85652; 86141; 87077; 87088; 87186; 96374; 96375

== ENCOUNTER → 2019-08-26 | Outpatient (CLI) | payer MEDICAID ==
[~2019-08-26] MED LIST changes: +CEFU250T80 PO
[2019-08-26 12:56] LABS: BASOPHILS % (AUTO) 0 % (0-10); EOSINOPHILS # (AUTO) 0.1 10^3/uL (0.0-0.3); EOSINOPHILS % (AUTO) 1 % (0-10); HEMATOCRIT 42 % (40-54); LYMPHOCYTES # (AUTO) 1.9 X 10^3 (1.0-4.0); LYMPHOCYTES % (AUTO) 24 % (12-44); MEAN CORPUSCULAR HEMOGLOBIN 26 PG (25-34); MEAN CORPUSCULAR HGB CONC 33 G/DL (32-36); MEAN CORPUSCULAR VOLUME 77 FL (80-99); MEAN PLATELET VOLUME 10.3 FL (7.4-10.4); MONOCYTES # (AUTO) 0.4 X 10^3 (0.0-1.0); MONOCYTES % (AUTO) 5 % (0-12); NEUTROPHILS # (AUTO) 5.4 X 10^3 (1.8-7.8); NEUTROPHILS % (AUTO) 69 % (42-75); PLATELET COUNT 331 10^3/uL (130-400); RED CELL DISTRIBUTION WIDTH 15.7 % (10.0-14.5); WHITE BLOOD COUNT 7.9 10^3/uL (4.3-11.0)
[2019-08-26 13:18] LABS: ALANINE AMINOTRANSFERASE 28 U/L (0-55); ALBUMIN 4.4 GM/DL (3.2-4.5); ALKALINE PHOSPHATASE 76 U/L (40-136); BILIRUBIN,TOTAL 0.5 MG/DL (0.1-1.0); BUN/CREATININE RATIO 14; CALCIUM 9.3 MG/DL (8.5-10.1); CARBON DIOXIDE 25 MMOL/L (21-32); CHLORIDE 106 MMOL/L (98-107); CREATININE SERUM 1.18 MG/DL (0.60-1.30); GFR ESTIMATED > 60; GLUCOSE 125 MG/DL (70-105); SODIUM 141 MMOL/L (135-145); TOTAL PROTEIN 7.3 GM/DL (6.4-8.2)
== END ==
LOC: ONC 12:56
PROVIDERS: ATTEND Internal Medicine Hematology & Oncology
DX: Z08 Encounter for follow-up examination after completed treatment for malignant neoplasm (principal); Z85.048 Personal history of other malignant neoplasm of rectum, rectosigmoid junction, and anus; D50.9 Iron deficiency anemia, unspecified; F33.9 Major depressive disorder, recurrent, unspecified; G47.00 Insomnia, unspecified; N39.490 Overflow incontinence; R79.89 Other specified abnormal findings of blood chemistry; G62.89 Other specified polyneuropathies; K31.84 Gastroparesis; K21.9 Gastro-esophageal reflux disease without esophagitis; Z79.899 Other long term (current) drug therapy; Z92.3 Personal history of irradiation; Z92.21 Personal history of antineoplastic chemotherapy; Z87.440 Personal history of urinary (tract) infections
CPT/HCPCS: 80053; 82378; 85025; 99213

== ENCOUNTER 2020-01-14 22:50 | Inpatient (IN) | payer MEDICARE, MEDICAID ==
[~2020-01-14] VITALS: Ht 170 cm; Wt 97.5 kg
[~2020-01-14 22:50] MED LIST changes: +OXYC-527 PO
--- OUTSIDE RECORDS SUMMARY | 2020-01-14 22:57 | XMS REPORT | Clinical Summary ---
Author Author [facility] Organization [facility] Address Unknown Phone Unavailable Care Team Providers Care Breakfast Attendant Name Role Phone Polo Link MD Unavailable Rosalba Coker RN Unavailable Unavailable Radha Luna RN Unavailable Elizabeth Montoya RN Unavailable Unavailable Gildardo Walker MD PCP Fern Perez RN Unavailable Unavailable Source Comments Some departments are not documenting in the electronic medical record. If you d o not see the information that you expected, contact Release of Information in [facility] Information Management department at [phone] for further assistan ce in locating additional records.[facility] Allergies Comments Active Allergy Reactions Severity Noted Date Codeine NAUSEA AND 02/10/2014 VOMITING Morphine ITCHING 02/10/2014 Medications End Date Status Medication Sig Dispensed Refills Start Date Active amLODIPine (NORVASC) 10 Take 10 mg by 0 mg tablet mouth every morning. Active clonazePAM (KLONOPIN) 2 Take 2 mg by 0 mg tablet mouth twice daily. Active sertraline (ZOLOFT) 100 Take 100 mg 0 mg tablet by mouth at bedtime daily. Active acyclovir (ZOVIRAX) 400 Take 400 mg 0 mg tablet by mouth twice daily. Active pregabalin (LYRICA) 50 mg Take 50 mg by 0 capsule mouth three times daily. Active ondansetron (ZOFRAN) 8 mg Take 8 mg by 0 tablet mouth every 8 hours as needed. Active docusate (COLACE) 100 mg Take 1 Cap by 60 Cap 3 capsule mouth twice 4 daily as needed for Constipation. Active oxyCODONE (ROXICODONE) 5 Take 1-2 Tabs 40 Tab 0 mg tablet by mouth 4 every 4 hours as needed for Pain Earliest Fill Date: 04/07/14 Active senna/docusate Take 1 Tab by 30 Tab 3 (SENOKOT-S) 8.6/50 mg mouth twice 4 tablet daily as needed (constipation ). Active aspirin 325 mg tablet Take 1 Tab by 90 Tab 3 mouth daily. 4 Active polyethylene glycol 3350 Take 1 Packet 12 Each 3 (MIRALAX) 17 g packet by mouth 4 twice daily as needed (constipation ). Active Problems Problem Noted Date History of urostomy 04/21/2014 C. difficile diarrhea 03/31/2014 Incontinence 03/26/2014 Ureteral stricture, left 03/12/2014 Incontinence of urine 02/10/2014 Erectile dysfunction 02/10/2014 Urinary retention 02/10/2014 Rectal cancer 02/10/2014 Overview: [id number] S/p brain-adjuvant chemo/XRT S/p LAR with diverting ileostomy S/p ileostomy takedown. Ureteral stricture 02/10/2014 Overview: Indwelling JJ stent on left Family History Medical History Relation Name Comments Cancer Other Diabetes Other Heart Attack Other Heart Disease Other Hypertension Other Relation Name Status Comments Other Social History Date Tobacco Use Types Packs/Day Years Used Never Smoker Smokeless Tobacco: Never Used Drinks/Week oz/Week Comments Alcohol Use No Sex Assigned at Date Recorded Not on file Industry Job Start Date Occupation Not on file Not on file Not on file Travel End Travel History Travel Start No recent travel history available. Last Filed Vital Signs Reading Time Taken Comments Vital Sign 109/75 04/21/2014 8:37 AM CDT Blood Pressure 80 04/21/2014 8:37 AM CDT Pulse 36.7 C (98.1 F) 04/07/2014 11:43 AM CDT Temperature - - Respiratory Rate 100% 04/07/2014 11:43 AM CDT Oxygen Saturation - - Inhaled Oxygen Concentration 77.1 kg (170 lb) 04/21/2014 8:37 AM CDT Weight 170.2 cm (5' 7") 04/21/2014 8:37 AM CDT Height 26.63 04/21/2014 8:37 AM CDT Body Mass Index Plan of Treatment Health Maintenance Due Date Last Done Comments HIV SCREENING 1981 DTAP/TDAP VACCINES (1 - 1984 Tdap) HEPATITIS C SCREENING 1984 PHYSICAL (COMPREHENSIVE) 1984 EXAM COLORECTAL CANCER 2016 SCREENING SHINGLES RECOMBINANT 2016 VACCINE (1 of 2) INFLUENZA VACCINE 04/16/2020 Results Not on filefrom Last 3 Months Insurance Type Payer Benefit Subscriber ID Effective Phone Address Plan / Dates Group Medicaid [employer] [employer] xxxxxxxxxxx [id number] [facility] Advance Directives Patient Slot Machine Key Person Explanation Type Date Recorded Advance 03/27/2014 10:34 AM Directive/DPOA Date Inactivated Comments Code Status Date Activated 04/07/2014 4:57 PM Full Code 03/26/2014 6:34 PM Provider has discussed Code Status No, discussion no t w/Patient or Family? necessary based on Dx 03/13/2014 1:14 PM Full Code 03/12/2014 12:42 PM Provider has discussed Code Status No, discussion no t w/Patient or Family? necessary based on Dx
--- OUTSIDE RECORDS SUMMARY | 2020-01-14 22:58 | XMS REPORT ---
Author Author Melvin BENTLEY Organization [facility] Address [address] [place] [address] Care Team Providers Care Red Leader Name Role Phone LINDA BENTLEY Unavailable PROBLEMS Type Condition ICD9-CM Code PST08-MH Code Onset Dates Condition S tatus SNOMED Code Problem Incontinence of feces, unspecified fecal incontinence type R15.9 Active 40538992 Problem Primary insomnia F51.01 Active 193 177478 Problem Hydronephrosis with ureteral stricture, not else where classified N13.1 Active 99204606 Problem Chronic fatigue, unspecified R53.82 A ctive 028015680 Problem Hypertension, benign I10 Active 84093526 Problem Mood disorder F39 Active 220111 05 Problem Neuropathy G62.9 Active 352217989 Problem Chronic pain syndrome G89.4 Active 054818148 Problem Abdominal pain, left lower quadrant R10.32 Active 183088558 Problem 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 Active 274110512 Problem 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 527403078 Problem Anxiety F41.9 Active 95603884 Problem Polyneuropathy G62.9 Active 19386 000 Problem Malignant neoplasm of colon, unspecified part of colon C18.9 Active 785639390 Problem Attention to urostomy Z43.6 Active 377459107 ALLERGIES No Information ENCOUNTERS Encounter Location Date Diagnosis [facility] [address] [facility] [id number] [address] [place] [address] Jan, [facility] [address] [facility] [id number] [address] [place] [address] Dec, [place] [address] [facility] [id number] [address] [place] [address] 11 Dec, 2019 Mood disorder F39 ; Other ar tificial openings of urinary tract status Z93.6 ; Chronic pain syndrome G89.4 ; Attention to urostomy Z43.6 and Polyneuropathy G62.9 [facility] [address] [id number] [address] [place] [address] 10 Dec, 2019 Attention to urostomy Z43.6 [facility] [address] [id number] [address] [place] [address] 02 Dec, 2019 [facility] [address] [id number] [address] [place] [address] November, Attention to urostomy Z43.6 [facility] [address] [id number] [address] [place] [id number] 16 Oct, 2019 Attention to urostomy Z43.6 and Hypertension, benign I10 [facility] [address] [id number] [address] [place] [phone] 15 Oct, 2019 [facility] [address] [id number] [address] [place] [address] 10 Sep, 2019 Neuropathy G62.9 ; Anxiety F 41.9 and Encounter for Medicare annual wellness exam Z00.00 [facility] [address] [id number] [address] [place] [address] Aug, Anxiety F41.9 ; Neuropathy G 62.9 and Encounter for Medicare annual wellness exam Z00.00 [facility] [address] [id number] [address] [place] [address] Jul, [facility] [address] [id number] [address] [place] [address] Jul, Primary insomnia F51.01 and Anxiety F41.9 [facility] [address] [id number] [address] [place] [address] Jul, Primary insomnia F51.01 ; Ne uropathy G62.9 and Encounter for Medicare annual wellness exam Z00.00 [facility] [address] [id number] [address] [place] [address] Jun, Neuropathy G62.9 and Encount er for Medicare annual wellness exam Z00.00 [place] [address] [id number] [address] [place] [address] 18 Jun, 2019 Primary insomnia F51.01 [facility] [address] [id number] [address] [place] [address] 17 Jun, 2019 Primary insomnia F51.01 ; En counter for Medicare annual wellness exam Z00.00 and Neuropathy G62.9 [facility] [address] [id number] [address] [place] [address] Jun, Malignant neoplasm of colon, unspecified part of colon C18.9 and Chronic fatigue, unspecified R53.82 [place] [address] [id number] [address] [place] [address] May, Neuropathy G62.9 and Encount er for Medicare annual wellness exam Z00.00 [place] [address] [id number] [address] [place] [address] 15 May, 2019 Primary insomnia F51.01 [facility] [address] [id number] [address] [place] [address] May, Neuropathy G62.9 and Anxiety F41.9 [place] [address] [id number] [address] [place] [address] Apr, Encounter for Medicare annua l wellness exam Z00.00 [facility] [address] [id number] [address] [place] [address] 16 Apr, 2019 Neuropathy G62.9 and Encount er for Medicare annual wellness exam Z00.00 [facility] [address] [id number] [address] [place] [address] Mar, Neuropathy G62.9 and Primary insomnia F51.01 [facility] [address] [id number] [address] [place] [address] Mar, [facility] [address] [id number] [address] [place] [address] Feb, Primary insomnia F51.01 ; Ne uropathy G62.9 and Encounter for Medicare annual wellness exam Z00.00 [facility] [address] [id number] [address] [place] [address] Feb, Neuropathy G62.9 and Encount er for Medicare annual wellness exam Z00.00 [facility] [address] [id number] [address] [place] [address] Feb, Primary insomnia F51.01 and High risk medication use Z79.899 [facility] [address] [id number] [address] [place] [address] Jan, [facility] [address] [id number] [address] [place] [address] Jan, Neuropathy G62.9 [facility] [address] [id number] [address] [place] [address] Dec, [facility] [address] [id number] [address] [place] [address] Dec, Encounter for Medicare annua l wellness exam Z00.00 and Neuropathy G62.9 [facility] [address] [id number] [address] [place] [address] November, [facility] [address] [id number] [address] [place] [address] November, Encounter for Medicare annua l wellness exam Z00.00 ; 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 ; Mood disorder F39 ; Chronic fatigue, unspecified R53.82 and Neuropathy G62.9 [facility] [address] [id number] [address] [place] [address] November, Neuropathy G62.9 [facility] [address] [id number] [address] [place] [address] Oct, Neuropathy G62.9 [facility] [address] [id number] [address] [place] [address] Oct, Hypertension, benign I10 and Anxiety F41.9 [facility] [address] [id number] [address] [place] [address] Oct, [facility] [address] [id number] [address] [place] [address] Oct, [facility] [address] [id number] [address] [place] [address] Oct, [facility] [address] [id number] [address] [place] [address] Oct, Neuropathy G62.9 [facility] [address] [id number] [address] [place] [address] Sep, [facility] [address] [id number] [address] [place] [address] Sep, Neuropathy G62.9 [facility] [address] [id number] [address] [place] [address] Sep, [facility] [address] [id number] [address] [place] [address] Sep, H/O malignant carcinoid tumo r of 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 and Primary insomnia F51.01 [facility] [address] [id number] [address] [place] [address] Aug, [facility] [address] [id number] [address] [place] [address] Aug, Neuropathy G62.9 [facility] [address] [id number] [address] [place] [address] Aug, [facility] [address] [id number] [address] [place] [address] Jul, Non-recurrent acute suppurat francine otitis media of left ear without spontaneous rupture of tympanic membrane H66.002 [facility] [address] [id number] [address] [place] [address] Jul, Neuropathy G62.9 [facility] [address] [facility] [facility] [id number] [address] [place] [address] Jun, [facility] [address] [facility] [facility] [id number] [address] [place] [address] Jun, [facility] [address] [facility] [facility] [id number] [address] [place] [address] Jun, Neuropathy G62.9 [facility] [address] [facility] [id number] [address] [place] [address] Jun, [facility] [address] [place] [id number] [place] [address] Jun, [facility] [address] [facility] [facility] [id number] [address] [place] [address] Jun, Lumbar neuritis M54.16 [facility] [address] [place] [id number] [address] [place] [address] May, Neuropathy G62.9 [facility] [address] [address] May, [facility] [address] [place] [id number] [place] [address] May, Neuropathy G62.9 and Hyperte nsion, benign I10 [facility] [address] [place] [id number] [address] [place] [address] Apr, Polyneuropathy G62.9 and Hyp ertension, benign I10 [facility] [address] [place] [id number] [place] [address] Mar, Chronic pain syndrome G89.4 and Hypertension, benign I10 [facility] [address] [facility] [facility] [id number] [address] [place] [address] Mar, Polyneuropathy G62.9 and Hyp ertension, benign I10 [facility] [address] [facility] [facility] [id number] [address] [place] [address] Feb, [facility] [address] [place] [id number] [address] [place] [address] Feb, Hypertension, benign I10 [facility] [address] [id number] [address] [place] [address] 15 Feb, 2018 Hypertension, benign I10 ; P olyneuropathy G62.9 and Primary insomnia F51.01 [facility] [address] [id number] [address] [place] [address] 17 Jan, 2018 Hypertension, benign I10 and Polyneuropathy G62.9 [facility] [address] [facility] [id number] [address] [place] [address] Jan, Hypertension, benign I10 and Neuropathy G62.9 [facility] [address] [facility] [id number] [address] [place] [address] Jan, [facility] [address] [facility] [id number] [address] [place] [address] Dec, Polyneuropathy G62.9 [facility] [address] [facility] [id number] [address] [place] [address] Dec, Mood disorder F39 [facility] [address] [facility] [id number] [address] [place] [address] November, Polyneuropathy G62.9 [facility] [address] [facility] [id number] [address] [place] [address] November, Medicare annual wellness vis it, initial Z00.00 [facility] [address] [facility] [facility] [id number] [address] [place] [address] November, Mood disorder F39 [facility] [address] [facility] [id number] [address] [place] [address] Oct, Polyneuropathy G62.9 [facility] [address] [facility] [id number] [address] [place] [address] Oct, [facility] [address] [facility] [facility] [id number] [address] [place] [address] Oct, [facility] [address] [facility] [id number] [address] [place] [address] 04 Apr, 2018 Mood disorder F39 ; Attentio n to urostomy Z43.6 ; Chronic pain syndrome G89.4 and Polyneuropathy G62.9 [facility] [address] [facility] [id number] [address] [place] [address] Sep, Polyneuropathy G62.9 [facility] [address] [facility] [facility] [id number] [address] [place] [address] Sep, [facility] [address] [facility] [facility] [id number] [address] [place] [address] Sep, Polyneuropathy G62.9 [facility] [address] [facility] [facility] [id number] [address] [place] [address] Aug, Polyneuropathy G62.9 [facility] [address] [facility] [facility] [id number] [address] [place] [address] Aug, Malignant neoplasm of colon, unspecified part of colon C18.9 and Polyneuropathy G62.9 [facility] [address] [facility] [facility] [id number] [address] [place] [address] Aug, Neuropathy G62.9 and Polyneu ropathy G62.9 [facility] [address] [facility] [facility] [id number] [address] [place] [address] Jul, Encounter for drug screening Z02.83 [facility] [address] [place] [id number] [address] [place] [address] Jul, Polyneuropathy G62.9 [facility] [address] [facility] [facility] [id number] [address] [place] [address] Jul, [facility] [address] [facility] [id number] [address] [place] [address] Jul, Neuropathy G62.9 and Anxiety F41.9 [facility] [address] [facility] [facility] [id number] [address] [place] [address] Jul, [facility] [address] [facility] [facility] [id number] [address] [place] [address] Jul, [facility] [address] [id number] [address] [place] [address] Jul, [facility] [address] [facility] [facility] [id number] [address] [place] [address] Jul, Polyneuropathy G62.9 [facility] [address] [facility] [id number] [address] [place] [address] Jul, [facility] [address] [facility] [id number] [address] [place] [address] Jun, [facility] [address] [facility] [facility] [id number] [address] [place] [address] Jun, [facility] [address] [facility] [id number] [address] [place] [address] Jun, [facility] [address] [id number] [address] [place] [address] 07 Jun, 2017 Encounter for dental examina tion Z01.20 [facility] [address] [facility] [id number] [address] [place] [address] Jun, Polyneuropathy G62.9 and Anx iety F41.9 [facility] [address] [facility] [id number] [address] [place] [address] Jun, [facility] [address] [id number] [place] [address] May, Dental examination Z01.20 [facility] [address] [facility] [id number] [address] [place] [address] May, Polyneuropathy G62.9 [facility] [address] [facility] [facility] [id number] [address] [place] [address] Apr, Polyneuropathy G62.9 [facility] [address] [facility] [id number] [address] [place] [address] Apr, Polyneuropathy G62.9 [facility] [address] [facility] [id number] [address] [place] [address] Apr, Hypertension, benign I10 ; P olyneuropathy G62.9 and Anxiety F41.9 [facility] [address] [id number] [address] [place] [address] Apr, Primary insomnia F51.01 and Polyneuropathy G62.9 [facility] [address] [facility] [facility] [id number] [address] [place] [address] Apr, Primary insomnia F51.01 and Polyneuropathy G62.9 [facility] [address] [id number] [address] [place] [address] Mar, Primary insomnia F51.01 [facility] [address] [facility] [id number] [address] [place] [address] Mar, [facility] [address] [facility] [id number] [address] [place] [address] Mar, Polyneuropathy G62.9 [facility] [address] [id number] [address] [place] [address] Feb, Primary insomnia F51.01 [facility] [address] [id number] [address] [place] [address] Feb, [facility] [address] [facility] [id number] [address] [place] [address] Feb, [facility] [address] [facility] [facility] [id number] [address] [place] [address] Feb, Polyneuropathy G62.9 [facility] [address] [id number] [address] [place] [address] Feb, Primary insomnia F51.01 [facility] [address] [facility] [facility] [id number] [address] [place] [address] Jan, [facility] [address] [facility] [facility] [id number] [address] [place] [address] Jan, [facility] [address] [facility] [id number] [address] [place] [address] Dec, [facility] [address] [id number] [address] [place] [address] Dec, Primary insomnia F51.01 [facility] [address] [id number] [address] [place] [address] Dec, Primary insomnia F51.01 [facility] [address] [id number] [address] [place] [address] Dec, [facility] [address] [id number] [address] [place] [address] Dec, [facility] [address] [id number] [address] [place] [address] Dec, [facility] [address] [id number] [address] [place] [address] Dec, [facility] [address] [facility] [id number] [address] [place] [address] November, Primary insomnia F51.01 and Polyneuropathy G62.9 [facility] [address] [id number] [address] [place] [address] November, [facility] [address] [facility] [id number] [address] [place] [address] November, Abdominal pain, left lower q uadrant R10.32 [facility] [address] [facility] [id number] [address] [place] [address] November, [facility] [address] [id number] [address] [place] [address] Oct, [facility] [address] [facility] [id number] [address] [place] [address] Oct, Abdominal pain, left lower q uadrant R10.32 ; 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 and Neuropathy G62.9 [facility] [address] [facility] [id number] [address] [place] [address] Oct, [facility] [address] [id number] [address] [place] [address] Sep, [facility] [address] [id number] [facility] [place] [id number] Sep, [facility] [address] [facility] [id number] [address] [place] [address] Sep, [facility] [address] [facility] [id number] [address] [place] [address] Aug, [facility] [address] [facility] [id number] [address] [place] [address] Aug, [facility] [address] [facility] [id number] [address] [place] [address] Aug, Abdominal pain, left lower q uadrant R10.32 ; Neuropathy G62.9 and Anxiety F41.9 [facility] [address] [facility] [id number] [place] [address] Jul, [facility] [address] [facility] [id number] [address] [place] [address] Jul, [facility] [address] [facility] [id number] [address] [place] [address] Jul, [facility] [address] [facility] [id number] [address] [place] [address] Jul, [facility] [address] [facility] [id number] [address] [place] [phone] Jul, [facility] [address] [facility] [id number] [address] [place] [phone] Jun, [facility] [address] [facility] [id number] [address] [place] [phone] May, [facility] [address] [facility] [id number] [address] [place] [phone] May, [facility] [address] [facility] [id number] [address] [place] [phone] Apr, [facility] [address] [id number] [address] [place] [phone] Apr, Muscle spasms of both lower extremities M62.838 and Cellulitis, unspecified cellulitis site L03.90 [facility] [address] [id number] [address] [place] [id number] 07 Apr, 2016 [facility] [address] [id number] [address] [place] [phone] 23 Mar, 2016 Generalized abdominal pain R 10.84 [facility] [address] [id number] [address] [place] [phone] 20 Mar, 2016 [facility] [address] [id number] [address] [place] [phone] 14 Mar, 2016 [facility] [address] [id number] [address] [place] [phone] 14 Mar, 2016 [facility] [address] [id number] [address] [place] [phone] 13 Mar, 2016 [facility] [address] [id number] [address] [place] [phone] 12 Mar, 2016 [facility] [address] [id number] [address] [place] [phone] 09 Mar, 2016 [facility] [address] [id number] [address] [place] [phone] 06 Mar, 2016 [facility] [address] [id number] [address] [place] [phone] 17 Feb, 2016 Other specified diseases of anus and rectum K62.89 [facility] [address] [id number] [address] [place] [id number] 15 Feb, 2016 [facility] [address] [id number] [address] [place] [phone] 09 Feb, 2016 Dizziness R42 [facility] [address] [id number] [address] [place] [phone] Feb, [facility] [address] [id number] [address] [place] [address], [place] [address] Jan, Polyneuropathy G62.9 [facility] [address] [id number] [address] [place] [address], [place] [address] Jan, Other specified diseases of anus and rectum K62.89 [facility] [address] [id number] [address] [place] [address], [place] [address] Jan, [facility] [address] [id number] [address] [place] [address], [place] [phone] Jan, [facility] [address] [id number] [address] [place] [address], [place] [address] Jan, [facility] [address] [id number] [address] [place] [address], [place] [phone] Jan, Dizziness R42 [facility] [address] [id number] [address] [place] [address], [place] [phone] Dec, [facility] [address] [id number] [address] [place] [address], [place] [address] Dec, [facility] [address] [id number] [address] [place] [address], [place] [address] Dec, [facility] [address] [id number] [address] [place] [address], [place] [address] Dec, Dizziness R42 [facility] [address] [id number] [address] [place] [address], [place] [address] November, [facility] [address] [id number] [address] [place] [address], [place] [address] Oct, [facility] [address] [id number] [address] [place] [address], [place] [address] Oct, [facility] [address] [id number] [address] [place] [address], [place] [address] Oct, [facility] [address] [id number] [address] [place] [address], [place] [address] Oct, [facility] [address] [facility] [id number] [address] [place] [address] Sep, [facility] [address] [id number] [address] [place] [address] Sep, Primary insomnia F51.01 [facility] [address] [id number] [address] [place] [address] Sep, Primary insomnia F51.01 [facility] [address] [facility] [id number] [address] [place] [address] Sep, [facility] [address] [id number] [address] [place] [address] Aug, [facility] [address] [address] Aug, [facility] [address] [address] Aug, Primary insomnia F51.01 ; Mo od disorder F39 ; Nausea and vomiting, unspecified intactability, vomiting of unspecified type R11.2 and Diarrhea R19.7 [facility] [address] [address] Aug, [facility] [address] [id number] [address] [place] [address] Aug, Folliculitis L73.9 [facility] [address] [id number] [address] [place] [address] Aug, [facility] [address] [id number] [address] [place] [address] Aug, [facility] [address] [address] Jul, Folliculitis L73.9 [facility] [address] [id number] [address] [place] [address] Jul, [facility] [address] [id number] [address] [place] [address] Jun, Folliculitis L73.9 [facility] [address] [facility] [id number] [address] [place] [address] Jun, [facility] [address] [facility] [id number] [address] [place] [address] May, Polyneuropathy G62.9 [facility] [address] [facility] [id number] [address] [place] [address] May, Other specified diseases of anus and rectum K62.89 [facility] [address] [id number] [address] [place] [address] May, [facility] [address] [facility] [id number] [address] [place] [address] May, Primary insomnia F51.01 [facility] [address] [facility] [id number] [address] [place] [address] May, [facility] [address] [facility] [id number] [address] [place] [address] May, [facility] [address] [facility] [id number] [address] [place] [address] Apr, Other specified diseases of anus and rectum K62.89 ; Chronic fatigue R53.82 ; Urinary tract infection, site not specified N39.0 and Enterococcus as the cause of diseases classified elsewhere B95.2 [facility] [address] [facility] [id number] [address] [place] [address] Apr, [facility] [address] [facility] [id number] [address] [place] [address] Apr, [facility] [address] [facility] [id number] [address] [place] [address] Apr, 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 [facility] [address] [facility] [id number] [address] [place] [address] Apr, [facility] [address] [id number] [address] [place] [id number] 26 Mar, 2014 [facility] [address] [id number] [address] [place] [id number] 23 Mar, 2014 [facility] [address] [id number] [address] [place] [address] 17 Mar, 2015 [facility] [address] [id number] [address] [place] [address] 14 Mar, 2015 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 [facility] [address] [id number] [address] [place] [address] 12 Mar, 2015 [facility] [address] [id number] [address] [place] [address] 11 Mar, 2015 [facility] [address] [id number] [address] [place] [id number] 11 Mar, 2015 [facility] [address] [id number] [address] [place] [id number] 10 Mar, 2015 [facility] [address] [id number] [address] [place] [address] Feb, [facility] [address] [id number] [address] [place] [address] Feb, [facility] [address] [id number] [address] [place] [address] Feb, [facility] [address] [id number] [address] [place] [id number] 30 Jan, 2015 [facility] [address] [id number] [address] [place] [address] Jan, Nausea 787.02 and Neuropathy 355.9 [facility] [address] [id number] [address] [place] [address] Jan, [facility] [address] [id number] [address] [place] [address] Jan, [facility] [address] [id number] [address] [place] [address] Jan, [facility] [address] [id number] [address] [place] [id number] Jan, Dental examination V72.2 [facility] [address] [id number] [address] [place] [phone] Jan, [facility] [address] [id number] [address] [place] [phone] Dec, [facility] [address] [id number] [address] [place] [address] Dec, [facility] [address] [id number] [address] [place] [address] Dec, Neuropathy 355.9 [facility] [address] [id number] [address] [place] [phone] November, [facility] [address] [id number] [address] [place] [address] November, [facility] [address] [id number] [address] [place] [address] November, [facility] [address] [id number] [address] [place] [phone] Oct, [facility] [address] [id number] [address] [place] [phone] Oct, [facility] [address] [id number] [address] [place] [phone] Sep, [facility] [address] [id number] [address] [place] [address] Sep, [facility] [address] [id number] [address] [place] [id number] Sep, [facility] [address] [id number] [address] [place] [id number] Sep, [facility] [address] [id number] [address] [place] [phone] Sep, [facility] [address] [id number] [address] [place] [address], [place] [address] Sep, [facility] [address] [id number] [address] [place] [address], [place] [address] Sep, [facility] [address] [id number] [address] [place] [address], [place] [address] Sep, [facility] [address] [id number] [address] [place] [address], [place] [address] Aug, 2014 [facility] [address] [id number] [address] [place] [address], [place] [address] Aug, 2014 [facility] [address] [id number] [address] [place] [address], [place] [address] Aug, 2014 [facility] [address] [id number] [address] [place] [address], [place] [address] Aug, 2014 [facility] [address] [id number] [address] [place] [address], [place] [address] Aug, 2014 [facility] [address] [id number] [address] [place] [address], [place] [address] Aug, 2014 [facility] [address] [id number] [address] [place] [address], [place] [address] Aug, 2014 [facility] [address] [id number] [address] [place] [address], [place] [address] Aug, 2014 [facility] [address] [id number] [address] [place] [phone] Jul, [facility] [address] [id number] [address] [place] [address], [place] [address] Jul, [facility] [address] [id number] [address] [place] [address], [place] [address] Jun, [facility] [address] [id number] [address] [place] [address], [place] [address] Jun, [facility] [address] [id number] [address] [place] [address], [place] [address] Jun, [facility] [address] [id number] [address] [place] [address], [place] [address] Jun, [facility] [address] [id number] [address] [place] [address], [place] [address] Jun, [facility] [address] [id number] [address] [place] [address], [place] [address] Jun, [facility] [address] [id number] [address] [place] [address], [place] [address] Jun, [facility] [address] [id number] [address] [place] [address], [place] [address] Jun, [facility] [address] [id number] [address] [place] [address], [place] [address] Jun, [facility] [address] [id number] [address] [place] [address], [place] [address] Jun, [facility] [address] [id number] [address] [place] [address], [place] [address] Jun, [facility] [address] [id number] [address] [place] [address], [place] [address] May, [facility] [address] [id number] [address] [place] [address], [place] [address] May, [facility] [address] [id number] [address] [place] [address], [place] [address] May, [facility] [address] [id number] [address] [place] [address], [place] [address] May, [facility] [address] [id number] [address] [place] [address], [place] [address] May, [facility] [address] [id number] [address] [place] [address], [place] [address] May, [facility] [address] [id number] [address] [place] [address], [place] [address] May, [facility] [address] [id number] [address] [place] [address], [place] [address] May, [facility] [address] [id number] [address] [place] [address], [place] [address] May, [facility] [address] [id number] [address] [place] [address], [place] [address] Apr, [facility] [address] [id number] [address] [place] [address], [place] [address] Apr, [facility] [address] [id number] [address] [place] [address], [place] [address] Apr, [facility] [address] [id number] [address] [place] [address], [place] [address] Apr, [facility] [address] [id number] [address] [place] [address], [place] [address] Apr, [facility] [address] [id number] [address] [place] [address], [place] [address] Mar, [facility] [address] [id number] [address] [place] [address], [place] [address] Mar, [facility] [address] [id number] [address] [place] [address], [place] [address] Feb, [facility] [address] [id number] [address] [place] [address], [place] [address] Feb, [facility] [address] [id number] [address] [place] [address], [place] [address] Feb, [facility] [address] [id number] [address] [place] [address], [place] [address] Feb, [facility] [address] [id number] [address] [place] [address], [place] [address] Feb, [facility] [address] [id number] [address] [place] [address], [place] [address] Feb, [facility] [address] [id number] [facility] [place] [address] Jan, [facility] [address] [id number] [facility] [place] [address] Jan, [facility] [address] [id number] [facility] [place] [address] Jan, [facility] [address] [id number] [facility] [place] [address] Jan, [facility] [address] [id number] [facility] [place] [address] Jan, [facility] [address] [id number] [facility] [place] [address] Jan, [facility] [address] [id number] [facility] [place] [address] Jan, [facility] [address] [id number] [address] [place] [address], [place] [address] Jan, [facility] [address] [id number] [address] [place] [address], [place] [address] Jan, [facility] [address] [id number] [address] [place] [address], [place] [address] Jan, [facility] [address] [id number] [address] [place] [address], [place] [address] Jan, [facility] [address] [id number] [address] [place] [address], [place] [address] Dec, [facility] [address] [id number] [address] [place] [address], [place] [address] Dec, [facility] [address] [id number] [address] [place] [address], [place] [address] Dec, [facility] [address] [id number] [address] [place] [address], [place] [address] Dec, [facility] [address] [id number] [address] [place] [address], [place] [address] Dec, [facility] [address] [id number] [facility] [place] [address] Dec, [facility] [address] [id number] [address] [place] [address], [place] [address] November, [facility] [address] [id number] [address] [place] [address], [place] [address] November, [facility] [address] [id number] [address] [place] [address], [place] [address] November, [facility] [address] [id number] [address] [place] [address], [place] [address] November, [facility] [address] [id number] [address] [place] [address], [place] [address] November, [facility] [address] [id number] [address] [place] [address], [place] [address] November, [facility] [address] [id number] [address] [place] [address], [place] [address] Oct, [facility] [address] [id number] [address] [place] [address], [place] [address] Oct, [facility] [address] [id number] [address] [place] [address], [place] [address] Oct, [facility] [address] [id number] [address] [place] [address], [place] [address] Oct, [facility] [address] [id number] [address] [place] [address], [place] [address] 17 Sep, 2013 [facility] [address] [id number] [address] [place] [address], [place] [address] 17 Sep, 2013 [facility] [address] [id number] [address] [place] [address], [place] [address] 13 Sep, 2013 [facility] [address] [id number] [address] [place] [address], [place] [address] Sep, [facility] [address] [id number] [address] [place] [address], [place] [address] Sep, [facility] [address] [id number] [address] [place] [address], [place] [address] Aug, [facility] [address] [id number] [address] [place] [address], [place] [address] Aug, [facility] [address] [id number] [address] [place] [address], [place] [address] Aug, [facility] [address] [id number] [address] [place] [address], [place] [address] Aug, [facility] [address] [id number] [address] [place] [address], [place] [address] Aug, [facility] [address] [place] [id number] May, [facility] [address] [id number] [address] [place] [address], [place] [address] May, [facility] [address] [id number] [address] [place] [address], [place] [address] May, [facility] [address] [id number] [address] [place] [address], [place] [address] May, [facility] [address] [id number] [address] [place] [address], [place] [address] May, [facility] [address] [id number] [address] [place] [address], [place] [address] Apr, [facility] [address] [id number] [address] [place] [address], [place] [address] Apr, [facility] [address] [id number] [address] [place] [address], [place] [address] Apr, [facility] [address] [id number] [address] [place] [address], [place] [address] Apr, [facility] [address] [id number] [address] [place] [address], [place] [address] Apr, [facility] [address] [id number] [address] [place] [address], [place] [address] Apr, [facility] [address] [id number] [address] [place] [address], [place] [address] Apr, [facility] [address] [id number] [address] [place] [address], [place] [address] Mar, [facility] [address] [id number] [address] [place] [address], [place] [address] Mar, [facility] [address] [id number] [address] [place] [address], [place] [address] 24 Mar, 2013 [facility] [address] [id number] [address] [place] [address], [place] [address] Mar, [facility] [address] [id number] [address] [place] [address], [place] [address] Mar, [facility] [address] [id number] [address] [place] [address], [place] [address] Mar, [facility] [address] [id number] [address] [place] [address], [place] [address] Feb, [facility] [address] [id number] [address] [place] [address], [place] [address] Feb, [facility] [address] [id number] [address] [place] [address], [place] [address] Feb, [facility] [address] [id number] [address] [place] [address], [place] [address] Feb, [facility] [address] [id number] [address] [place] [address], [place] [address] Feb, [facility] [address] [id number] [address] [place] [address], [place] [address] Feb, [facility] [address] [id number] [address] [place] [address], [place] [address] Jan, [facility] [address] [id number] [address] [place] [address], [place] [address] 24 Dec, 2012 [facility] [address] [id number] [address] [place] [address], [place] [address] Dec, [facility] [address] [id number] [address] [place] [address], [place] [address] Dec, [facility] [address] [id number] [address] [place] [address], [place] [address] Dec, [facility] [address] [id number] [address] [place] [address], [place] [address] Dec, [facility] [address] [id number] [address] [place] [address], [place] [address] Dec, [facility] [address] [id number] [address] [place] [address], [place] [address] Dec, [facility] [address] [id number] [address] [place] [address], [place] [address] Dec, [facility] [address] [id number] [address] [place] [address], [place] [address] Dec, [facility] [address] [id number] [address] [place] [address], [place] [address] November, [facility] [address] [id number] [address] [place] [address], [place] [address] November, [facility] [address] [id number] [address] [place] [address], [place] [address] Oct, [facility] [address] [id number] [address] [place] [address], [place] [address] Sep, [facility] [address] [id number] [address] [place] [address], [place] [address] Sep, [facility] [address] [id number] [address] [place] [address], [place] [address] 15 Sep, 2012 [facility] [address] [id number] [address] [place] [address], [place] [address] Sep, [facility] [address] [id number] [address] [place] [address] Aug, [facility] [address] [facility] [id number] [address] [place] [address] Aug, [facility] [address] [facility] [id number] [address] [place] [address] Jul, [facility] [address] [facility] [id number] [address] [place] [address] Jul, [facility] [address] [facility] [id number] [address] [place] [id number] Jul, [facility] [address] [facility] [id number] [address] [place] [id number] Sep, [facility] [address] [facility] [id number] [address] [place] [id number] Sep, [facility] [address] [facility] [id number] [address] [place] [id number] Sep, IMMUNIZATIONS No Known Immunizations SOCIAL HISTORY Never Assessed REASON FOR VISIT PLAN OF CARE VITAL SIGNS MEDICATIONS Unknown Medications RESULTS No Results PROCEDURES No Known procedures INSTRUCTIONS MEDICATIONS ADMINISTERED No Known Medications MEDICAL (GENERAL) HISTORY Type Description Date Medical History Gerd, gastroparesis Medical History depression Medical History Rectal cancer s/p chemo and radiation:last chemo 07/16/14 dc'd due to intolerance, no evidence of recurrent disease on PET scan 10/08/13 Medical History dizziness Medical History liver enzymes elevated Surgical History colon resection with ileosto my by dr. Cook d/t rectal cancer 12/06/12 Surgical History bladder removal 2012 Surgical History broken left arm 04/2017 Surgical History 8 teeth pulled 09/12/2018 Hospitalization History abd pain anemia, recurrent UTI 4 Hospitalization History colon resection with ileosto my by dr. Cook d/t rectal cancer Hospitalization History Intractable n/v, chronic, abd pain, acute renal 03/27/2015 Hospitalization History [facility] for dizziness and nausea 12/06 Hospitalization History UTI, AMS[facility] 09/21/16 Hospitalization History Large bowel obstruction, Dehydration -[facility] 01/01/17 Hospitalization History [facility]- UTI/Sepsis 01/18/2018 Hospitalization History [facility] - infection 4 days 05/2018
--- OUTSIDE RECORDS SUMMARY | 2020-01-14 22:58 | XMS REPORT ---
Author Author Melvin BENTLEY Organization [facility] Address [address] [place] [address] Care Team Providers Care Yard Supervisor Cotton Gin Name Role Phone LINDA BENTLEY Unavailable PROBLEMS Type Condition ICD9-CM Code [id number] Code Onset Dates Condition S tatus SNOMED Code Problem Incontinence of feces, unspecified fecal incontinence type R15.9 Active 66958847 Problem Primary insomnia F51.01 Active 193 115954 Problem Hydronephrosis with ureteral stricture, not else where classified N13.1 Active 33634006 Problem Chronic fatigue, unspecified R53.82 A ctive 865485950 Problem Hypertension, benign I10 Active 60680283 Problem Mood disorder F39 Active 592472 05 Problem Neuropathy G62.9 Active 879516391 Problem Chronic pain syndrome G89.4 Active 081635430 Problem Abdominal pain, left lower quadrant R10.32 Active 729329313 Problem 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 Active 305906138 Problem 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 517502353 Problem Anxiety F41.9 Active 39958414 Problem Polyneuropathy G62.9 Active 56228 000 Problem Malignant neoplasm of colon, unspecified part of colon C18.9 Active 044289344 Problem Attention to urostomy Z43.6 Active 881472294 ALLERGIES No Information ENCOUNTERS Encounter Location Date Diagnosis [facility] [address] [facility] [id number] [address] [place] [phone] Jan, [facility] [address] [facility] [id number] [address] [place] [phone] Dec, [place] [address] [facility] [id number] [address] [place] [id number] 11 Dec, 2019 Mood disorder F39 ; Other ar tificial openings of urinary tract status Z93.6 ; Chronic pain syndrome G89.4 ; Attention to urostomy Z43.6 and Polyneuropathy G62.9 [facility] [address] [id number] [address] [place] [phone] 10 Dec, 2019 Attention to urostomy Z43.6 [facility] [address] [id number] [address] [place] [phone] 02 Dec, 2019 [facility] [address] [id number] [address] [place] [phone] November, Attention to urostomy Z43.6 [facility] [address] [id number] [address] [place] [id number] 16 Oct, 2019 Attention to urostomy Z43.6 and Hypertension, benign I10 [facility] [address] [id number] [address] [place] [phone] 15 Oct, 2019 [facility] [address] [id number] [address] [place] [phone] 10 Sep, 2019 Neuropathy G62.9 ; Anxiety F 41.9 and Encounter for Medicare annual wellness exam Z00.00 [facility] [address] [id number] [address] [place] [phone] Aug, Anxiety F41.9 ; Neuropathy G 62.9 and Encounter for Medicare annual wellness exam Z00.00 [facility] [address] [id number] [address] [place] [id number] Jul, [facility] [address] [id number] [address] [place] [phone] Jul, Primary insomnia F51.01 and Anxiety F41.9 [facility] [address] [id number] [address] [place] [id number] Jul, Primary insomnia F51.01 ; Ne uropathy G62.9 and Encounter for Medicare annual wellness exam Z00.00 [facility] [address] [id number] [address] [place] [id number] Jun, Neuropathy G62.9 and Encount er for Medicare annual wellness exam Z00.00 [place] [address] [id number] [address] [place] [id number] 18 Jun, 2019 Primary insomnia F51.01 [facility] [address] [id number] [address] [place] [id number] 17 Jun, 2019 Primary insomnia F51.01 ; En counter for Medicare annual wellness exam Z00.00 and Neuropathy G62.9 [facility] [address] [id number] [address] [place] [phone] Jun, Malignant neoplasm of colon, unspecified part of colon C18.9 and Chronic fatigue, unspecified R53.82 [place] [address] [id number] [address] [place] [phone] May, Neuropathy G62.9 and Encount er for Medicare annual wellness exam Z00.00 [place] [address] [id number] [address] [place] [id number] 15 May, 2019 Primary insomnia F51.01 [facility] [address] [id number] [address] [place] [phone] May, Neuropathy G62.9 and Anxiety F41.9 [place] [address] [id number] [address] [place] [phone] Apr, Encounter for Medicare annua l wellness exam Z00.00 [facility] [address] [id number] [address] [place] [id number] 16 Apr, 2019 Neuropathy G62.9 and Encount er for Medicare annual wellness exam Z00.00 [facility] [address] [id number] [address] [place] [id number] Mar, Neuropathy G62.9 and Primary insomnia F51.01 [facility] [address] [id number] [address] [place] [id number] Mar, [facility] [address] [id number] [address] [place] [phone] Feb, Primary insomnia F51.01 ; Ne uropathy G62.9 and Encounter for Medicare annual wellness exam Z00.00 [facility] [address] [id number] [address] [place] [phone] Feb, Neuropathy G62.9 and Encount er for Medicare annual wellness exam Z00.00 [facility] [address] [id number] [address] [place] [phone] Feb, Primary insomnia F51.01 and High risk medication use Z79.899 [facility] [address] [id number] [address] [place] [id number] Jan, [facility] [address] [id number] [address] [place] [phone] Jan, Neuropathy G62.9 [facility] [address] [id number] [address] [place] [id number] Dec, [facility] [address] [id number] [address] [place] [phone] Dec, Encounter for Medicare annua l wellness exam Z00.00 and Neuropathy G62.9 [facility] [address] [id number] [address] [place] [phone] November, [facility] [address] [id number] [address] [place] [phone] November, Encounter for Medicare annua l wellness exam Z00.00 ; 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 ; Mood disorder F39 ; Chronic fatigue, unspecified R53.82 and Neuropathy G62.9 [facility] [address] [id number] [address] [place] [id number] November, Neuropathy G62.9 [facility] [address] [id number] [address] [place] [phone] Oct, Neuropathy G62.9 [facility] [address] [id number] [address] [place] [phone] Oct, Hypertension, benign I10 and Anxiety F41.9 [facility] [address] [id number] [address] [place] [phone] Oct, [facility] [address] [id number] [address] [place] [phone] Oct, [facility] [address] [id number] [address] [place] [id number] Oct, [facility] [address] [id number] [address] [place] [phone] Oct, Neuropathy G62.9 [facility] [address] [id number] [address] [place] [phone] Sep, [facility] [address] [id number] [address] [place] [id number] Sep, Neuropathy G62.9 [facility] [address] [id number] [address] [place] [phone] Sep, [facility] [address] [id number] [address] [place] [phone] Sep, H/O malignant carcinoid tumo r of 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 and Primary insomnia F51.01 [facility] [address] [id number] [address] [place] [phone] Aug, [facility] [address] [id number] [address] [place] [id number] Aug, Neuropathy G62.9 [facility] [address] [id number] [address] [place] [id number] Aug, [facility] [address] [id number] [address] [place] [id number] Jul, Non-recurrent acute suppurat francine otitis media of left ear without spontaneous rupture of tympanic membrane H66.002 [facility] [address] [id number] [address] [place] [id number] Jul, Neuropathy G62.9 [facility] [address] [facility] [id number] [address] [place] [phone] Jun, [facility] [address] [facility] [id number] [address] [place] [phone] Jun, [facility] [address] [facility] [id number] [address] [place] [id number] Jun, Neuropathy G62.9 [facility] [address] [facility] [id number] [address] [place] [phone] Jun, [facility] [address] [place] [id number] [place] [phone] Jun, [facility] [address] [facility] [id number] [address] [place] [phone] Jun, Lumbar neuritis M54.16 [facility] [address] [place] [id number] [address] [place] [id number] May, Neuropathy G62.9 [facility] [address] [phone] May, [facility] [address] [place] [id number] [place] [phone] May, Neuropathy G62.9 and Hyperte nsion, benign I10 [facility] [address] [place] [id number] [address] [place] [id number] Apr, Polyneuropathy G62.9 and Hyp ertension, benign I10 [facility] [address] [place] [id number] [place] [phone] Mar, Chronic pain syndrome G89.4 and Hypertension, benign I10 [facility] [address] [facility] [id number] [address] [place] [phone] Mar, Polyneuropathy G62.9 and Hyp ertension, benign I10 [facility] [address] [facility] [id number] [address] [place] [id number] Feb, [facility] [address] [place] [id number] [address] [place] [phone] Feb, Hypertension, benign I10 [facility] [address] [id number] [address] [place] [id number] 15 Feb, 2018 Hypertension, benign I10 ; P olyneuropathy G62.9 and Primary insomnia F51.01 [facility] [address] [id number] [address] [place] [phone] 17 Jan, 2018 Hypertension, benign I10 and Polyneuropathy G62.9 [facility] [address] [facility] [id number] [address] [place] [phone] Jan, Hypertension, benign I10 and Neuropathy G62.9 [facility] [address] [facility] [id number] [address] [place] [phone] Jan, [facility] [address] [facility] [id number] [address] [place] [phone] Dec, Polyneuropathy G62.9 [facility] [address] [facility] [id number] [address] [place] [phone] Dec, Mood disorder F39 [facility] [address] [facility] [id number] [address] [place] [phone] November, Polyneuropathy G62.9 [facility] [address] [facility] [id number] [address] [place] [id number] November, Medicare annual wellness vis it, initial Z00.00 [facility] [address] [facility] [id number] [address] [place] [id number] November, Mood disorder F39 [facility] [address] [facility] [id number] [address] [place] [phone] Oct, Polyneuropathy G62.9 [facility] [address] [facility] [id number] [address] [place] [phone] Oct, [facility] [address] [facility] [id number] [address] [place] [phone] Oct, [facility] [address] [facility] [id number] [address] [place] [id number] 04 Apr, 2018 Mood disorder F39 ; Attentio n to urostomy Z43.6 ; Chronic pain syndrome G89.4 and Polyneuropathy G62.9 [facility] [address] [facility] [id number] [address] [place] [phone] Sep, Polyneuropathy G62.9 [facility] [address] [facility] [id number] [address] [place] [phone] Sep, [facility] [address] [facility] [id number] [address] [place] [id number] Sep, Polyneuropathy G62.9 [facility] [address] [facility] [id number] [address] [place] [id number] Aug, Polyneuropathy G62.9 [facility] [address] [facility] [id number] [address] [place] [phone] Aug, Malignant neoplasm of colon, unspecified part of colon C18.9 and Polyneuropathy G62.9 [facility] [address] [facility] [id number] [address] [place] [phone] Aug, Neuropathy G62.9 and Polyneu ropathy G62.9 [facility] [address] [facility] [id number] [address] [place] [phone] Jul, Encounter for drug screening Z02.83 [facility] [address] [place] [id number] [address] [place] [phone] Jul, Polyneuropathy G62.9 [facility] [address] [facility] [id number] [address] [place] [id number] Jul, [facility] [address] [facility] [id number] [address] [place] [phone] Jul, Neuropathy G62.9 and Anxiety F41.9 [facility] [address] [facility] [id number] [address] [place] [phone] Jul, [facility] [address] [facility] [id number] [address] [place] [phone] Jul, [facility] [address] [id number] [address] [place] [phone] Jul, [facility] [address] [facility] [id number] [address] [place] [phone] Jul, Polyneuropathy G62.9 [facility] [address] [facility] [id number] [address] [place] [phone] Jul, [facility] [address] [facility] [id number] [address] [place] [phone] Jun, [facility] [address] [facility] [id number] [address] [place] [phone] Jun, [facility] [address] [facility] [id number] [address] [place] [phone] Jun, [facility] [address] [id number] [place] [address] 07 Jun, 2017 Encounter for dental examina tion Z01.20 [facility] [address] [facility] [id number] [address] [place] [phone] Jun, Polyneuropathy G62.9 and Anx iety F41.9 [facility] [address] [facility] [id number] [address] [place] [id number] Jun, [facility] [address] [id number] [place] [address] May, Dental examination Z01.20 [facility] [address] [facility] [id number] [address] [place] [phone] May, Polyneuropathy G62.9 [facility] [address] [facility] [id number] [address] [place] [phone] Apr, Polyneuropathy G62.9 [facility] [address] [facility] [id number] [address] [place] [phone] Apr, Polyneuropathy G62.9 [facility] [address] [facility] [id number] [address] [place] [phone] Apr, Hypertension, benign I10 ; P olyneuropathy G62.9 and Anxiety F41.9 [facility] [address] [id number] [address] [place] [phone] Apr, Primary insomnia F51.01 and Polyneuropathy G62.9 [facility] [address] [facility] [id number] [address] [place] [id number] Apr, Primary insomnia F51.01 and Polyneuropathy G62.9 [facility] [address] [id number] [address] [place] [phone] Mar, Primary insomnia F51.01 [facility] [address] [facility] [id number] [address] [place] [phone] Mar, [facility] [address] [facility] [id number] [address] [place] [id number] Mar, Polyneuropathy G62.9 [facility] [address] [id number] [address] [place] [phone] Feb, Primary insomnia F51.01 [facility] [address] [id number] [address] [place] [id number] Feb, [facility] [address] [facility] [id number] [address] [place] [id number] Feb, [facility] [address] [facility] [id number] [address] [place] [id number] Feb, Polyneuropathy G62.9 [facility] [address] [id number] [address] [place] [phone] Feb, Primary insomnia F51.01 [facility] [address] [facility] [id number] [address] [place] [phone] Jan, [facility] [address] [facility] [id number] [address] [place] [phone] Jan, [facility] [address] [facility] [id number] [address] [place] [phone] Dec, [facility] [address] [id number] [address] [place] [phone] Dec, Primary insomnia F51.01 [facility] [address] [id number] [address] [place] [phone] Dec, Primary insomnia F51.01 [facility] [address] [id number] [address] [place] [phone] Dec, [facility] [address] [id number] [address] [place] [id number] Dec, [facility] [address] [id number] [address] [place] [id number] Dec, [facility] [address] [id number] [address] [place] [phone] Dec, [facility] [address] [facility] [id number] [address] [place] [id number] November, Primary insomnia F51.01 and Polyneuropathy G62.9 [facility] [address] [id number] [address] [place] [phone] November, [facility] [address] [facility] [id number] [address] [place] [phone] November, Abdominal pain, left lower q uadrant R10.32 [facility] [address] [facility] [id number] [address] [place] [phone] November, [facility] [address] [id number] [address] [place] [phone] Oct, [facility] [address] [facility] [id number] [address] [place] [id number] Oct, Abdominal pain, left lower q uadrant R10.32 ; 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 and Neuropathy G62.9 [facility] [address] [facility] [id number] [address] [place] [phone] Oct, [facility] [address] [id number] [address] [place] [phone] Sep, [facility] [address] [id number] [place] [id number] Sep, [facility] [address] [facility] [id number] [address] [place] [phone] Sep, [facility] [address] [facility] [id number] [address] [place] [phone] Aug, [facility] [address] [facility] [id number] [address] [place] [phone] Aug, [facility] [address] [facility] [id number] [address] [place] [id number] Aug, Abdominal pain, left lower q uadrant R10.32 ; Neuropathy G62.9 and Anxiety F41.9 [facility] [address] [facility] [id number] [place] [id number] Jul, [facility] [address] [facility] [id number] [address] [place] [id number] Jul, [facility] [address] [facility] [id number] [address] [place] [phone] Jul, [facility] [address] [facility] [id number] [address] [place] [id number] Jul, [facility] [address] [facility] [id number] [address] [place] [phone] Jul, [facility] [address] [facility] [id number] [address] [place] [id number] Jun, [facility] [address] [facility] [id number] [address] [place] [id number] May, [facility] [address] [facility] [id number] [address] [place] [id number] May, [facility] [address] [facility] [id number] [address] [place] [id number] Apr, [facility] [address] [id number] [address] [place] [phone] Apr, Muscle spasms of both lower extremities M62.838 and Cellulitis, unspecified cellulitis site L03.90 [facility] [address] [id number] [address] [place] [id number] 07 Apr, 2016 [facility] [address] [id number] [address] [place] [phone] 23 Mar, 2016 Generalized abdominal pain R 10.84 [facility] [address] [id number] [address] [place] [phone] 20 Mar, 2016 [facility] [address] [id number] [address] [place] [phone] 14 Mar, 2016 [facility] [address] [id number] [address] [place] [phone] 14 Mar, 2016 [facility] [address] [id number] [address] [place] [id number] 13 Mar, 2016 [facility] [address] [id number] [address] [place] [id number] 12 Mar, 2016 [facility] [address] [id number] [address] [place] [id number] 09 Mar, 2016 [facility] [address] [id number] [address] [place] [id number] 06 Mar, 2016 [facility] [address] [id number] [address] [place] [id number] 17 Feb, 2016 Other specified diseases of anus and rectum K62.89 [facility] [address] [id number] [address] [place] [id number] 15 Feb, 2016 [facility] [address] [id number] [address] [place] [id number] 09 Feb, 2016 Dizziness R42 [facility] [address] [id number] [address] [place] [address] Feb, [facility] [address] [id number] [address] [place] [address], [place] [address] Jan, Polyneuropathy G62.9 [facility] [address] [id number] [address] [place] [address], [place] [address] Jan, Other specified diseases of anus and rectum K62.89 [facility] [address] [id number] [address] [place] [address], [place] [address] Jan, [facility] [address] [id number] [address] [place] [address], [place] [address] Jan, [facility] [address] [id number] [address] [place] [address], [place] [address] Jan, [facility] [address] [id number] [address] [place] [address], [place] [address] Jan, Dizziness R42 [facility] [address] [id number] [address] [place] [address], [place] [address] Dec, [facility] [address] [id number] [address] [place] [address], [place] [address] Dec, [facility] [address] [id number] [address] [place] [address], [place] [address] Dec, [facility] [address] [id number] [address] [place] [address], [place] [address] Dec, Dizziness R42 [facility] [address] [id number] [address] [place] [address], [place] [address] November, [facility] [address] [id number] [address] [place] [address], [place] [address] Oct, [facility] [address] [id number] [address] [place] [address], [place] [address] Oct, [facility] [address] [id number] [address] [place] [address], [place] [address] Oct, [facility] [address] [id number] [address] [place] [address], [place] [address] Oct, [facility] [address] [facility] [id number] [address] [place] [address] Sep, [facility] [address] [place] [id number] [address] [place] [address] Sep, Primary insomnia F51.01 [facility] [address] [id number] [address] [place] [address] Sep, Primary insomnia F51.01 [facility] [address] [facility] [id number] [address] [place] [address] Sep, [facility] [address] [id number] [address] [place] [address] Aug, [facility] [address] [address] Aug, [facility] [address] [address] Aug, Primary insomnia F51.01 ; [place] od disorder F39 ; Nausea and vomiting, unspecified intactability, vomiting of unspecified type R11.2 and Diarrhea R19.7 [facility] [address] [id number] Aug, [facility] [address] [id number] [address] [place] [address] Aug, Folliculitis L73.9 [facility] [address] [id number] [address] [place] [address] Aug, [facility] [address] [id number] [address] [place] [address] Aug, [facility] [address] [address] Jul, Folliculitis L73.9 [facility] [address] [place] [id number] [address] [place] [address] Jul, [facility] [address] [place] [id number] [address] [place] [address] Jun, Folliculitis L73.9 [facility] [address] [facility] [id number] [address] [place] [address] Jun, [facility] [address] [facility] [id number] [address] [place] [address] May, Polyneuropathy G62.9 [facility] [address] [facility] [id number] [address] [place] [address] May, Other specified diseases of anus and rectum K62.89 [facility] [address] [id number] [address] [place] [address] May, [facility] [address] [facility] [id number] [address] [place] [address] May, Primary insomnia F51.01 [facility] [address] [facility] [id number] [address] [place] [id number] May, [facility] [address] [facility] [id number] [address] [place] [id number] May, [facility] [address] [facility] [id number] [address] [place] [address] Apr, Other specified diseases of anus and rectum K62.89 ; Chronic fatigue R53.82 ; Urinary tract infection, site not specified N39.0 and Enterococcus as the cause of diseases classified elsewhere B95.2 [facility] [address] [facility] [id number] [address] [place] [id number] Apr, [facility] [address] [facility] [id number] [address] [place] [id number] Apr, [facility] [address] [facility] [id number] [address] [place] [address] Apr, 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 [facility] [address] [facility] [id number] [address] [place] [phone] Apr, [facility] [address] [id number] [address] [place] [id number] 26 Mar, 2014 [facility] [address] [id number] [address] [place] [phone] 23 Mar, 2014 [facility] [address] [id number] [address] [place] [id number] 17 Mar, 2015 [facility] [address] [id number] [address] [place] [id number] 14 Mar, 2015 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 [facility] [address] [id number] [address] [place] [id number] 12 Mar, 2015 [facility] [address] [id number] [address] [place] [id number] 11 Mar, 2015 [facility] [address] [id number] [address] [place] [id number] 11 Mar, 2015 [facility] [address] [id number] [address] [place] [id number] 10 Mar, 2015 [facility] [address] [id number] [address] [place] [id number] Feb, [facility] [address] [id number] [address] [place] [phone] Feb, [facility] [address] [id number] [address] [place] [id number] Feb, [facility] [address] [id number] [address] [place] [id number] 30 Jan, 2015 [facility] [address] [id number] [address] [place] [id number] Jan, Nausea 787.02 and Neuropathy 355.9 [facility] [address] [id number] [address] [place] [phone] Jan, [facility] [address] [id number] [address] [place] [id number] Jan, [facility] [address] [id number] [address] [place] [phone] Jan, [facility] [address] [id number] [address] [place] [id number] Jan, Dental examination V72.2 [facility] [address] [id number] [address] [place] [phone] Jan, [facility] [address] [id number] [address] [place] [phone] Dec, [facility] [address] [id number] [address] [place] [id number] Dec, [facility] [address] [id number] [address] [place] [phone] Dec, Neuropathy 355.9 [facility] [address] [id number] [address] [place] [id number] November, [facility] [address] [id number] [address] [place] [id number] November, [facility] [address] [id number] [address] [place] [id number] November, [facility] [address] [id number] [address] [place] [phone] Oct, [facility] [address] [id number] [address] [place] [phone] Oct, [facility] [address] [id number] [address] [place] [phone] Sep, [facility] [address] [id number] [address] [place] [id number] Sep, [facility] [address] [id number] [address] [place] [id number] Sep, [facility] [address] [id number] [address] [place] [id number] Sep, [facility] [address] [id number] [address] [place] [phone] Sep, [facility] [address] [id number] [address] [place] [address], [place] [address] Sep, [facility] [address] [id number] [address] [place] [address], [place] [address] Sep, [facility] [address] [id number] [address] [place] [address], [place] [address] Sep, [facility] [address] [id number] [address] [place] [address], [place] [address] Aug, 2014 [facility] [address] [id number] [address] [place] [address], [place] [address] Aug, 2014 [facility] [address] [id number] [address] [place] [address], [place] [address] Aug, 2014 [facility] [address] [id number] [address] [place] [address], [place] [address] Aug, 2014 [facility] [address] [id number] [address] [place] [address], [place] [address] Aug, 2014 [facility] [address] [id number] [address] [place] [address], [place] [address] Aug, 2014 [facility] [address] [id number] [address] [place] [address], [place] [address] Aug, 2014 [facility] [address] [id number] [address] [place] [address], [place] [address] Aug, 2014 [facility] [address] [id number] [address] [place] [id number] Jul, [facility] [address] [id number] [address] [place] [address], [place] [address] Jul, [facility] [address] [id number] [address] [place] [address], [place] [address] Jun, [facility] [address] [id number] [address] [place] [address], [place] [address] Jun, [facility] [address] [id number] [address] [place] [address], [place] [address] Jun, [facility] [address] [id number] [address] [place] [address], [place] [address] Jun, [facility] [address] [id number] [address] [place] [address], [place] [address] Jun, [facility] [address] [id number] [address] [place] [address], [place] [address] Jun, [facility] [address] [id number] [address] [place] [address], [place] [address] Jun, [facility] [address] [id number] [address] [place] [address], [place] [address] Jun, [facility] [address] [id number] [address] [place] [address], [place] [address] Jun, [facility] [address] [id number] [address] [place] [address], [place] [address] Jun, [facility] [address] [id number] [address] [place] [address], [place] [address] Jun, [facility] [address] [id number] [address] [place] [address], [place] [address] May, [facility] [address] [id number] [address] [place] [address], [place] [address] May, [facility] [address] [id number] [address] [place] [address], [place] [address] May, [facility] [address] [id number] [address] [place] [address], [place] [address] May, [facility] [address] [id number] [address] [place] [address], [place] [address] May, [facility] [address] [id number] [address] [place] [address], [place] [address] May, [facility] [address] [id number] [address] [place] [address], [place] [address] May, [facility] [address] [id number] [address] [place] [address], [place] [address] May, [facility] [address] [id number] [address] [place] [address], [place] [address] May, [facility] [address] [id number] [address] [place] [address], [place] [address] Apr, [facility] [address] [id number] [address] [place] [address], [place] [address] Apr, [facility] [address] [id number] [address] [place] [address], [place] [address] Apr, [facility] [address] [id number] [address] [place] [address], [place] [address] Apr, [facility] [address] [id number] [address] [place] [address], [place] [address] Apr, [facility] [address] [id number] [address] [place] [address], [place] [address] Mar, [facility] [address] [id number] [address] [place] [address], [place] [address] Mar, [facility] [address] [id number] [address] [place] [address], [place] [address] Feb, [facility] [address] [id number] [address] [place] [address], [place] [address] Feb, [facility] [address] [id number] [address] [place] [address], [place] [address] Feb, [facility] [address] [id number] [address] [place] [address], [place] [address] Feb, [facility] [address] [id number] [address] [place] [address], [place] [address] Feb, [facility] [address] [id number] [address] [place] [address], [place] [address] Feb, [facility] [address] [id number] [address] [address] Jan, [facility] [address] [id number] [address] [address] Jan, [facility] [address] [id number] [address] [address] Jan, [facility] [address] [id number] [address] [address] Jan, [facility] [address] [id number] [address] [address] Jan, [facility] [address] [id number] [address] [address] Jan, [facility] [address] [id number] [address] [address] Jan, [facility] [address] [id number] [address] [place] [address], [place] [address] Jan, [facility] [address] [id number] [address] [place] [address], [place] [address] Jan, [facility] [address] [id number] [address] [place] [address], [place] [address] Jan, [facility] [address] [id number] [address] [place] [address], [place] [address] Jan, [facility] [address] [id number] [address] [place] [address], [place] [address] Dec, [facility] [address] [id number] [address] [place] [address], [place] [address] Dec, [facility] [address] [id number] [address] [place] [address], [place] [address] Dec, [facility] [address] [id number] [address] [place] [address], [place] [address] Dec, [facility] [address] [id number] [address] [place] [address], [place] [address] Dec, [facility] [address] [id number] [address] [address] Dec, [facility] [address] [id number] [address] [place] [address], [place] [address] November, [facility] [address] [id number] [address] [place] [address], [place] [address] November, [facility] [address] [id number] [address] [place] [address], [place] [address] November, [facility] [address] [id number] [address] [place] [address], [place] [address] November, [facility] [address] [id number] [address] [place] [address], [place] [address] November, [facility] [address] [id number] [address] [place] [address], [place] [address] November, [facility] [address] [id number] [address] [place] [address], [place] [address] Oct, [facility] [address] [id number] [address] [place] [address], [place] [address] Oct, [facility] [address] [id number] [address] [place] [address], [place] [address] Oct, [facility] [address] [id number] [address] [place] [address], [place] [address] Oct, [facility] [address] [id number] [address] [place] [address], [place] [address] 17 Sep, 2013 [facility] [address] [id number] [address] [place] [address], [place] [address] 17 Sep, 2013 [facility] [address] [id number] [address] [place] [address], [place] [address] 13 Sep, 2013 [facility] [address] [id number] [address] [place] [address], [place] [address] Sep, [facility] [address] [id number] [address] [place] [address], [place] [address] Sep, [facility] [address] [id number] [address] [place] [address], [place] [address] Aug, [facility] [address] [id number] [address] [place] [address], [place] [address] Aug, [facility] [address] [id number] [address] [place] [address], [place] [address] Aug, [facility] [address] [id number] [address] [place] [address], [place] [address] Aug, [facility] [address] [id number] [address] [place] [address], [place] [address] Aug, [facility] [place] [address] [place] [id number] May, [facility] [address] [id number] [address] [place] [address], [place] [address] May, [facility] [address] [id number] [address] [place] [address], [place] [address] May, [facility] [address] [id number] [address] [place] [address], [place] [address] May, [facility] [address] [id number] [address] [place] [address], [place] [address] May, [facility] [address] [id number] [address] [place] [address], [place] [address] Apr, [facility] [address] [id number] [address] [place] [address], [place] [address] Apr, [facility] [address] [id number] [address] [place] [address], [place] [address] Apr, [facility] [address] [id number] [address] [place] [address], [place] [address] Apr, [facility] [address] [id number] [address] [place] [address], [place] [address] Apr, [facility] [address] [id number] [address] [place] [address], [place] [address] Apr, [facility] [address] [id number] [address] [place] [address], [place] [address] Apr, [facility] [address] [id number] [address] [place] [address], [place] [address] Mar, [facility] [address] [id number] [address] [place] [address], [place] [address] Mar, [facility] [address] [id number] [address] [place] [address], [place] [address] 24 Mar, 2013 [facility] [address] [id number] [address] [place] [address], [place] [address] Mar, [facility] [address] [id number] [address] [place] [address], [place] [address] Mar, [facility] [address] [id number] [address] [place] [address], [place] [address] Mar, [facility] [address] [id number] [address] [place] [address], [place] [address] Feb, [facility] [address] [id number] [address] [place] [address], [place] [address] Feb, [facility] [address] [id number] [address] [place] [address], [place] [address] Feb, [facility] [address] [id number] [address] [place] [address], [place] [address] Feb, [facility] [address] [id number] [address] [place] [address], [place] [address] Feb, [facility] [address] [id number] [address] [place] [address], [place] [address] Feb, [facility] [address] [id number] [address] [place] [address], [place] [address] Jan, [facility] [address] [id number] [address] [place] [address], [place] [address] 24 Dec, 2012 [facility] [address] [id number] [address] [place] [address], [place] [address] Dec, [facility] [address] [id number] [address] [place] [address], [place] [address] Dec, [facility] [address] [id number] [address] [place] [address], [place] [address] Dec, [facility] [address] [id number] [address] [place] [address], [place] [address] Dec, [facility] [address] [id number] [address] [place] [address], [place] [address] Dec, [facility] [address] [id number] [address] [place] [address], [place] [address] Dec, [facility] [address] [id number] [address] [place] [address], [place] [address] Dec, [facility] [address] [id number] [address] [place] [address], [place] [address] Dec, [facility] [address] [id number] [address] [place] [address], [place] [address] November, [facility] [address] [id number] [address] [place] [address], [place] [address] November, [facility] [address] [id number] [address] [place] [address], [place] [address] Oct, [facility] [address] [id number] [address] [place] [address], [place] [address] Sep, [facility] [address] [id number] [address] [place] [address], [place] [address] Sep, [facility] [address] [id number] [address] [place] [address], [place] [address] 15 Sep, 2012 [facility] [address] [id number] [address] [place] [address], [place] [id number] Sep, [facility] [address] [id number] [address] [place] [id number] Aug, [facility] [address] [facility] [id number] [address] [place] [id number] Aug, [facility] [address] [facility] [id number] [address] [place] [id number] Jul, [facility] [address] [facility] [id number] [address] [place] [id number] Jul, [facility] [address] [facility] [id number] [address] [place] [id number] Jul, [facility] [address] [facility] [id number] [address] [place] [phone] Sep, [facility] [address] [facility] [id number] [address] [place] [phone] Sep, [facility] [address] [facility] [id number] [address] [place] [id number] Sep, IMMUNIZATIONS No Known Immunizations SOCIAL HISTORY [...] dizziness and nausea 12/06 Hospitalization History UTI, AMS-[facility] 09/21/16 Hospitalization History Large bowel obstruction, Dehydration -[facility] 01/01/17 Hospitalization History [facility]- UTI/Sepsis 01/18/2018 Hospitalization History [facility] - infection 4 days 05/2018
--- OUTSIDE RECORDS SUMMARY | 2020-01-14 22:58 | XMS REPORT ---
Author Author Melvin BENTLEY Organization [facility] Address [address] [place] [address] Care Team Providers Care Mandrel Maker Name Role Phone LINDA BENTLEY Unavailable PROBLEMS Type Condition ICD9-CM Code [id number] Code Onset Dates Condition S tatus SNOMED Code Problem Incontinence of feces, unspecified fecal incontinence type R15.9 Active 25553150 Problem Primary insomnia F51.01 Active 193 598716 Problem Hydronephrosis with ureteral stricture, not else where classified N13.1 Active 78724305 Problem Chronic fatigue, unspecified R53.82 A ctive 312451648 Problem Hypertension, benign I10 Active 84039866 Problem Mood disorder F39 Active 532236 05 Problem Neuropathy G62.9 Active 984443242 Problem Chronic pain syndrome G89.4 Active 641249386 Problem Abdominal pain, left lower quadrant R10.32 Active 342175113 Problem 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 [id number] [address] [place] [phone] Jan, [facility] [address] [facility] [id number] [address] [place] [phone] Dec, [place] [address] [facility] [id number] [address] [place] [phone] 11 Dec, 2019 Mood disorder F39 ; Other ar tificial openings of urinary tract status Z93.6 ; Chronic pain syndrome G89.4 ; Attention to urostomy Z43.6 and Polyneuropathy G62.9 [facility] [address] [id number] [address] [place] [phone] 10 Dec, 2019 Attention to urostomy Z43.6 [facility] [address] [id number] [address] [place] [id number] 02 Dec, 2019 [facility] [address] [id number] [address] [place] [id number] November, Attention to urostomy Z43.6 [facility] [address] [id number] [address] [place] [phone] 16 Oct, 2019 Attention to urostomy Z43.6 and Hypertension, benign I10 [facility] [address] [id number] [address] [place] [id number] 15 Oct, 2019 [facility] [address] [id number] [address] [place] [id number] 10 Sep, 2019 Neuropathy G62.9 ; Anxiety F 41.9 and Encounter for Medicare annual wellness exam Z00.00 [facility] [address] [id number] [address] [place] [phone] Aug, Anxiety F41.9 ; Neuropathy G 62.9 and Encounter for Medicare annual wellness exam Z00.00 [facility] [address] [id number] [address] [place] [phone] Jul, [facility] [address] [id number] [address] [place] [address] Jul, Primary insomnia F51.01 and Anxiety F41.9 [facility] [address] [id number] [address] [place] [id number] Jul, Primary insomnia F51.01 ; Ne uropathy G62.9 and Encounter for Medicare annual wellness exam Z00.00 [facility] [address] [id number] [address] [place] [id number] Jun, Neuropathy G62.9 and Encount er for Medicare annual wellness exam Z00.00 [place] [address] [id number] [address] [place] [id number] 18 Jun, 2019 Primary insomnia F51.01 [facility] [address] [id number] [address] [place] [id number] 17 Jun, 2019 Primary insomnia F51.01 ; En counter for Medicare annual wellness exam Z00.00 and Neuropathy G62.9 [facility] [address] [id number] [address] [place] [id number] Jun, Malignant neoplasm of colon, unspecified part of colon C18.9 and Chronic fatigue, unspecified R53.82 [place] [address] [id number] [address] [place] [phone] May, Neuropathy G62.9 and Encount er for Medicare annual wellness exam Z00.00 [place] [address] [id number] [address] [place] [id number] 15 May, 2019 Primary insomnia F51.01 [facility] [address] [id number] [address] [place] [id number] May, Neuropathy G62.9 and Anxiety F41.9 [place] [address] [id number] [address] [place] [id number] Apr, Encounter for Medicare annua l wellness exam Z00.00 [facility] [address] [id number] [address] [place] [id number] 16 Apr, 2019 Neuropathy G62.9 and Encount er for Medicare annual wellness exam Z00.00 [facility] [address] [id number] [address] [place] [id number] Mar, Neuropathy G62.9 and Primary insomnia F51.01 [facility] [address] [id number] [address] [place] [id number] Mar, [facility] [address] [id number] [address] [place] [id number] Feb, Primary insomnia F51.01 ; Ne uropathy G62.9 and Encounter for Medicare annual wellness exam Z00.00 [facility] [address] [id number] [address] [place] [address] Feb, Neuropathy G62.9 and Encount er for Medicare annual wellness exam Z00.00 [facility] [address] [id number] [address] [place] [id number] Feb, Primary insomnia F51.01 and High risk medication use Z79.899 [facility] [address] [id number] [address] [place] [id number] Jan, [facility] [address] [id number] [address] [place] [phone] Jan, Neuropathy G62.9 [facility] [address] [id number] [address] [place] [id number] Dec, [facility] [address] [id number] [address] [place] [id number] Dec, Encounter for Medicare annua l wellness exam Z00.00 and Neuropathy G62.9 [facility] [address] [id number] [address] [place] [id number] November, [facility] [address] [id number] [address] [place] [id number] November, Encounter for Medicare annua l wellness exam Z00.00 ; 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 ; Mood disorder F39 ; Chronic fatigue, unspecified R53.82 and Neuropathy G62.9 [facility] [address] [id number] [address] [place] [id number] November, Neuropathy G62.9 [facility] [address] [id number] [address] [place] [id number] Oct, Neuropathy G62.9 [facility] [address] [id number] [address] [place] [phone] Oct, Hypertension, benign I10 and Anxiety F41.9 [facility] [address] [id number] [address] [place] [id number] Oct, [facility] [address] [id number] [address] [place] [id number] Oct, [facility] [address] [id number] [address] [place] [phone] Oct, [facility] [address] [id number] [address] [place] [id number] Oct, Neuropathy G62.9 [facility] [address] [id number] [address] [place] [phone] Sep, [facility] [address] [id number] [address] [place] [id number] Sep, Neuropathy G62.9 [facility] [address] [id number] [address] [place] [phone] Sep, [facility] [address] [id number] [address] [place] [id number] Sep, H/O malignant carcinoid tumo r of 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 and Primary insomnia F51.01 [facility] [address] [id number] [address] [place] [phone] Aug, [facility] [address] [id number] [address] [place] [address] Aug, Neuropathy G62.9 [facility] [address] [id number] [address] [place] [phone] Aug, [facility] [address] [id number] [address] [place] [phone] Jul, Non-recurrent acute suppurat francine otitis media of left ear without spontaneous rupture of tympanic membrane H66.002 [facility] [address] [id number] [address] [place] [id number] Jul, Neuropathy G62.9 [facility] [address] [facility] [facility] [id number] [address] [place] [id number] Jun, [facility] [address] [facility] [id number] [address] [place] [phone] Jun, [facility] [address] [facility] [id number] [address] [place] [phone] Jun, Neuropathy G62.9 [facility] [address] [facility] [id number] [address] [place] [phone] Jun, [facility] [address] [place] [id number] [place] [phone] Jun, [facility] [address] [facility] [id number] [address] [place] [phone] Jun, Lumbar neuritis M54.16 [facility] [address] [place] [id number] [address] [place] [phone] May, Neuropathy G62.9 [facility] [address] [phone] May, [facility] [address] [place] [id number] [place] [address] May, Neuropathy G62.9 and Hyperte nsion, benign I10 [facility] [address] [place] [id number] [address] [place] [id number] Apr, Polyneuropathy G62.9 and Hyp ertension, benign I10 [facility] [address] [place] [id number] [place] [phone] Mar, Chronic pain syndrome G89.4 and Hypertension, benign I10 [facility] [address] [facility] [id number] [address] [place] [phone] Mar, Polyneuropathy G62.9 and Hyp ertension, benign I10 [facility] [address] [facility] [id number] [address] [place] [phone] Feb, [facility] [address] [place] [id number] [address] [place] [phone] Feb, Hypertension, benign I10 [facility] [address] [id number] [address] [place] [phone] 15 Feb, 2018 Hypertension, benign I10 ; P olyneuropathy G62.9 and Primary insomnia F51.01 [facility] [address] [id number] [address] [place] [id number] 17 Jan, 2018 Hypertension, benign I10 and Polyneuropathy G62.9 [facility] [address] [facility] [id number] [address] [place] [phone] Jan, Hypertension, benign I10 and Neuropathy G62.9 [facility] [address] [facility] [id number] [address] [place] [phone] Jan, [facility] [address] [facility] [id number] [address] [place] [phone] Dec, Polyneuropathy G62.9 [facility] [address] [facility] [id number] [address] [place] [phone] Dec, Mood disorder F39 [facility] [address] [facility] [id number] [address] [place] [phone] November, Polyneuropathy G62.9 [facility] [address] [facility] [id number] [address] [place] [phone] November, Medicare annual wellness vis it, initial Z00.00 [facility] [address] [facility] [id number] [address] [place] [phone] November, Mood disorder F39 [facility] [address] [facility] [id number] [address] [place] [id number] Oct, Polyneuropathy G62.9 [facility] [address] [facility] [id number] [address] [place] [phone] Oct, [facility] [address] [facility] [id number] [address] [place] [phone] Oct, [facility] [address] [facility] [id number] [address] [place] [phone] 04 Apr, 2018 Mood disorder F39 ; Attentio n to urostomy Z43.6 ; Chronic pain syndrome G89.4 and Polyneuropathy G62.9 [facility] [address] [facility] [id number] [address] [place] [phone] Sep, Polyneuropathy G62.9 [facility] [address] [facility] [id number] [address] [place] [phone] Sep, [facility] [address] [facility] [id number] [address] [place] [id number] Sep, Polyneuropathy G62.9 [facility] [address] [facility] [id number] [address] [place] [phone] Aug, Polyneuropathy G62.9 [facility] [address] [facility] [id number] [address] [place] [phone] Aug, Malignant neoplasm of colon, unspecified part of colon C18.9 and Polyneuropathy G62.9 [facility] [address] [facility] [id number] [address] [place] [phone] Aug, Neuropathy G62.9 and Polyneu ropathy G62.9 [facility] [address] [facility] [id number] [address] [place] [phone] Jul, Encounter for drug screening Z02.83 [facility] [address] [place] [id number] [address] [place] [id number] Jul, Polyneuropathy G62.9 [facility] [address] [facility] [id number] [address] [place] [phone] Jul, [facility] [address] [facility] [id number] [address] [place] [id number] Jul, Neuropathy G62.9 and Anxiety F41.9 [facility] [address] [facility] [id number] [address] [place] [phone] Jul, [facility] [address] [facility] [id number] [address] [place] [id number] Jul, [facility] [address] [id number] [address] [place] [phone] Jul, [facility] [address] [facility] [id number] [address] [place] [phone] Jul, Polyneuropathy G62.9 [facility] [address] [facility] [id number] [address] [place] [phone] Jul, [facility] [address] [facility] [id number] [address] [place] [phone] Jun, [facility] [address] [facility] [id number] [address] [place] [phone] Jun, [facility] [address] [facility] [id number] [address] [place] [phone] Jun, [facility] [address] [id number] [place] [address] 07 Jun, 2017 Encounter for dental examina tion Z01.20 [facility] [address] [facility] [id number] [address] [place] [id number] Jun, Polyneuropathy G62.9 and Anx iety F41.9 [facility] [address] [facility] [id number] [address] [place] [phone] Jun, [facility] [address] [id number] [place] [address] May, Dental examination Z01.20 [facility] [address] [facility] [id number] [address] [place] [phone] May, Polyneuropathy G62.9 [facility] [address] [facility] [id number] [address] [place] [phone] Apr, Polyneuropathy G62.9 [facility] [address] [facility] [id number] [address] [place] [phone] Apr, Polyneuropathy G62.9 [facility] [address] [facility] [id number] [address] [place] [phone] Apr, Hypertension, benign I10 ; P olyneuropathy G62.9 and Anxiety F41.9 [facility] [address] [id number] [address] [place] [id number] Apr, Primary insomnia F51.01 and Polyneuropathy G62.9 [facility] [address] [facility] [id number] [address] [place] [phone] Apr, Primary insomnia F51.01 and Polyneuropathy G62.9 [facility] [address] [id number] [address] [place] [address] Mar, Primary insomnia F51.01 [facility] [address] [facility] [id number] [address] [place] [phone] Mar, [facility] [address] [facility] [id number] [address] [place] [address] Mar, Polyneuropathy G62.9 [facility] [address] [id number] [address] [place] [phone] Feb, Primary insomnia F51.01 [facility] [address] [id number] [address] [place] [id number] Feb, [facility] [address] [facility] [id number] [address] [place] [phone] Feb, [facility] [address] [facility] [id number] [address] [place] [phone] Feb, Polyneuropathy G62.9 [facility] [address] [id number] [address] [place] [address] Feb, Primary insomnia F51.01 [facility] [address] [facility] [id number] [address] [place] [phone] Jan, [facility] [address] [facility] [id number] [address] [place] [phone] Jan, [facility] [address] [facility] [id number] [address] [place] [phone] Dec, [facility] [address] [id number] [address] [place] [address] Dec, Primary insomnia F51.01 [facility] [address] [id number] [address] [place] [phone] Dec, Primary insomnia F51.01 [facility] [address] [id number] [address] [place] [phone] Dec, [facility] [address] [id number] [address] [place] [phone] Dec, [facility] [address] [id number] [address] [place] [phone] Dec, [facility] [address] [id number] [address] [place] [id number] Dec, [facility] [address] [facility] [id number] [address] [place] [address] November, Primary insomnia F51.01 and Polyneuropathy G62.9 [facility] [address] [id number] [address] [place] [phone] November, [facility] [address] [facility] [id number] [address] [place] [id number] November, Abdominal pain, left lower q uadrant R10.32 [facility] [address] [facility] [id number] [address] [place] [id number] November, [facility] [address] [id number] [address] [place] [phone] Oct, [facility] [address] [id number] [address] [place] [phone] Oct, Abdominal pain, left lower q uadrant R10.32 ; 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 and Neuropathy G62.9 [facility] [address] [id number] [address] [place] [phone] Oct, [facility] [address] [id number] [address] [place] [phone] Sep, [facility] [address] [id number] [facility] [place] [id number] Sep, [facility] [address] [facility] [id number] [address] [place] [phone] Sep, [facility] [address] [id number] [address] [place] [phone] Aug, [facility] [address] [facility] [id number] [address] [place] [id number] Aug, [facility] [address] [id number] [address] [place] [phone] Aug, Abdominal pain, left lower q uadrant R10.32 ; Neuropathy G62.9 and Anxiety F41.9 [facility] [address] [id number] [place] [phone] Jul, [facility] [address] [facility] [id number] [address] [place] [phone] Jul, [facility] [address] [facility] [id number] [address] [place] [phone] Jul, [facility] [address] [facility] [id number] [address] [place] [phone] Jul, [facility] [address] [facility] [id number] [address] [place] [phone] Jul, [facility] [address] [facility] [id number] [address] [place] [phone] Jun, [facility] [address] [id number] [address] [place] [phone] May, [facility] [address] [facility] [id number] [address] [place] [phone] May, [facility] [address] [id number] [address] [place] [phone] Apr, [facility] [address] [id number] [address] [place] [phone] Apr, Muscle spasms of both lower extremities M62.838 and Cellulitis, unspecified cellulitis site L03.90 [facility] [address] [id number] [address] [place] [id number] 07 Apr, 2016 [facility] [address] [id number] [address] [place] [id number] 23 Mar, 2016 Generalized abdominal pain R 10.84 [facility] [address] [id number] [address] [place] [id number] 20 Mar, 2016 [facility] [address] [id number] [address] [place] [id number] 14 Mar, 2016 [facility] [address] [id number] [address] [place] [phone] 14 Mar, 2016 [facility] [address] [id number] [address] [place] [id number] 13 Mar, 2016 [facility] [address] [id number] [address] [place] [phone] 12 Mar, 2016 [facility] [address] [id number] [address] [place] [phone] 09 Mar, 2016 [facility] [address] [id number] [address] [place] [id number] 06 Mar, 2016 [facility] [address] [id number] [address] [place] [id number] 17 Feb, 2016 Other specified diseases of anus and rectum K62.89 [facility] [address] [id number] [address] [place] [id number] 15 Feb, 2016 [facility] [address] [id number] [address] [place] [id number] 09 Feb, 2016 Dizziness R42 [facility] [address] [id number] [address] [place] [phone] Feb, [facility] [address] [id number] [address] [place] [address], [place] [address] Jan, Polyneuropathy G62.9 [facility] [address] [id number] [address] [place] [address], [place] [address] Jan, Other specified diseases of anus and rectum K62.89 [facility] [address] [id number] [address] [place] [address], [place] [address] Jan, [facility] [address] [id number] [address] [place] [address], [place] [address] Jan, [facility] [address] [id number] [address] [place] [address], [place] [address] Jan, [facility] [address] [id number] [address] [place] [address], [place] [address] Jan, Dizziness R42 [facility] [address] [id number] [address] [place] [address], [place] [address] Dec, [facility] [address] [id number] [address] [place] [address], [place] [address] Dec, [facility] [address] [id number] [address] [place] [address], [place] [address] Dec, [facility] [address] [id number] [address] [place] [address], [place] [address] Dec, Dizziness R42 [facility] [address] [id number] [address] [place] [address], [place] [address] November, [facility] [address] [id number] [address] [place] [address], [place] [address] Oct, [facility] [address] [id number] [address] [place] [address], [place] [address] Oct, [facility] [address] [id number] [address] [place] [address], [place] [address] Oct, [facility] [address] [id number] [address] [place] [address], [place] [address] Oct, [facility] [address] [facility] [id number] [address] [place] [address] Sep, [facility] [address] [id number] [address] [place] [address] Sep, Primary insomnia F51.01 [facility] [address] [id number] [address] [place] [address] Sep, Primary insomnia F51.01 [facility] [address] [id number] [address] [place] [phone] Sep, [facility] [address] [id number] [address] [place] [address] Aug, [facility] [address] [address] Aug, [facility] [address] [address] Aug, Primary insomnia F51.01 ; Mo od disorder F39 ; Nausea and vomiting, unspecified intactability, vomiting of unspecified type R11.2 and Diarrhea R19.7 [facility] [address] [id number] Aug, [facility] [address] [id number] [address] [place] [address] Aug, Folliculitis L73.9 [facility] [address] [id number] [address] [place] [phone] Aug, [facility] [address] [id number] [address] [place] [address] Aug, [facility] [address] [address] Jul, Folliculitis L73.9 [facility] [address] [id number] [address] [place] [address] Jul, [facility] [address] [id number] [address] [place] [address] Jun, Folliculitis L73.9 [facility] [address] [id number] [address] [place] [phone] Jun, [facility] [address] [facility] [id number] [address] [place] [address] May, Polyneuropathy G62.9 [facility] [address] [id number] [address] [place] [address] May, Other specified diseases of anus and rectum K62.89 [facility] [address] [id number] [address] [place] [address] May, [facility] [address] [id number] [address] [place] [address] May, Primary insomnia F51.01 [facility] [address] [id number] [address] [place] [phone] May, [facility] [address] [id number] [address] [place] [address] May, [facility] [address] [id number] [address] [place] [address] Apr, Other specified diseases of anus and rectum K62.89 ; Chronic fatigue R53.82 ; Urinary tract infection, site not specified N39.0 and Enterococcus as the cause of diseases classified elsewhere B95.2 [facility] [address] [id number] [address] [place] [id number] Apr, [facility] [address] [id number] [address] [place] [phone] Apr, [facility] [address] [id number] [address] [place] [address] Apr, 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 [facility] [address] [id number] [address] [place] [id number] Apr, [facility] [address] [id number] [address] [place] [id number] 26 Mar, 2014 [facility] [address] [id number] [address] [place] [id number] 23 Mar, 2014 [facility] [address] [id number] [address] [place] [id number] 17 Mar, 2015 [facility] [address] [id number] [address] [place] [id number] 14 Mar, 2015 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 [facility] [address] [id number] [address] [place] [id number] 12 Mar, 2015 [facility] [address] [id number] [address] [place] [id number] 11 Mar, 2015 [facility] [address] [id number] [address] [place] [phone] 11 Mar, 2015 [facility] [address] [id number] [address] [place] [id number] 10 Mar, 2015 [facility] [address] [id number] [address] [place] [phone] Feb, [facility] [address] [id number] [address] [place] [phone] Feb, [facility] [address] [id number] [address] [place] [id number] Feb, [facility] [address] [id number] [address] [place] [id number] 30 Jan, 2015 [facility] [address] [id number] [address] [place] [id number] Jan, Nausea 787.02 and Neuropathy 355.9 [facility] [address] [id number] [address] [place] [phone] Jan, [facility] [address] [id number] [address] [place] [id number] Jan, [facility] [address] [id number] [address] [place] [id number] Jan, [facility] [address] [id number] [address] [place] [id number] Jan, Dental examination V72.2 [facility] [address] [id number] [address] [place] [phone] Jan, [facility] [address] [id number] [address] [place] [phone] Dec, [facility] [address] [id number] [address] [place] [id number] Dec, [facility] [address] [id number] [address] [place] [id number] Dec, Neuropathy 355.9 [facility] [address] [id number] [address] [place] [id number] November, [facility] [address] [id number] [address] [place] [id number] November, [facility] [address] [id number] [address] [place] [phone] November, [facility] [address] [id number] [address] [place] [id number] Oct, [facility] [address] [id number] [address] [place] [phone] Oct, [facility] [address] [id number] [address] [place] [id number] Sep, [facility] [address] [id number] [address] [place] [id number] Sep, [facility] [address] [id number] [address] [place] [id number] Sep, [facility] [address] [id number] [address] [place] [phone] Sep, [facility] [address] [id number] [address] [place] [phone] Sep, [facility] [address] [id number] [address] [place] [address], [place] [address] Sep, [facility] [address] [id number] [address] [place] [address], [place] [address] Sep, [facility] [address] [id number] [address] [place] [address], [place] [address] Sep, [facility] [address] [id number] [address] [place] [address], [place] [address] Aug, 2014 [facility] [address] [id number] [address] [place] [address], [place] [address] Aug, 2014 [facility] [address] [id number] [address] [place] [address], [place] [address] Aug, 2014 [facility] [address] [id number] [address] [place] [address], [place] [address] Aug, 2014 [facility] [address] [id number] [address] [place] [address], [place] [address] Aug, 2014 [facility] [address] [id number] [address] [place] [address], [place] [address] Aug, 2014 [facility] [address] [id number] [address] [place] [address], [place] [address] Aug, 2014 [facility] [address] [id number] [address] [place] [address], [place] [address] Aug, 2014 [facility] [address] [id number] [address] [place] [id number] Jul, [facility] [address] [id number] [address] [place] [address], [place] [address] Jul, [facility] [address] [id number] [address] [place] [address], [place] [address] Jun, [facility] [address] [id number] [address] [place] [address], [place] [address] Jun, [facility] [address] [id number] [address] [place] [address], [place] [address] Jun, [facility] [address] [id number] [address] [place] [address], [place] [address] Jun, [facility] [address] [id number] [address] [place] [address], [place] [address] Jun, [facility] [address] [id number] [address] [place] [address], [place] [address] Jun, [facility] [address] [id number] [address] [place] [address], [place] [address] Jun, [facility] [address] [id number] [address] [place] [address], [place] [address] Jun, [facility] [address] [id number] [address] [place] [address], [place] [address] Jun, [facility] [address] [id number] [address] [place] [address], [place] [address] Jun, [facility] [address] [id number] [address] [place] [address], [place] [address] Jun, [facility] [address] [id number] [address] [place] [address], [place] [address] May, [facility] [address] [id number] [address] [place] [address], [place] [address] May, [facility] [address] [id number] [address] [place] [address], [place] [address] May, [facility] [address] [id number] [address] [place] [address], [place] [address] May, [facility] [address] [id number] [address] [place] [address], [place] [address] May, [facility] [address] [id number] [address] [place] [address], [place] [address] May, [facility] [address] [id number] [address] [place] [address], [place] [address] May, [facility] [address] [id number] [address] [place] [address], [place] [address] May, [facility] [address] [id number] [address] [place] [address], [place] [address] May, [facility] [address] [id number] [address] [place] [address], [place] [address] Apr, [facility] [address] [id number] [address] [place] [address], [place] [address] Apr, [facility] [address] [id number] [address] [place] [address], [place] [address] Apr, [facility] [address] [id number] [address] [place] [address], [place] [address] Apr, [facility] [address] [id number] [address] [place] [address], [place] [address] Apr, [facility] [address] [id number] [address] [place] [address], [place] [address] Mar, [facility] [address] [id number] [address] [place] [address], [place] [address] Mar, [facility] [address] [id number] [address] [place] [address], [place] [address] Feb, [facility] [address] [id number] [address] [place] [address], [place] [address] Feb, [facility] [address] [id number] [address] [place] [address], [place] [address] Feb, [facility] [address] [id number] [address] [place] [address], [place] [address] Feb, [facility] [address] [id number] [address] [place] [address], [place] [address] Feb, [facility] [address] [id number] [address] [place] [address], [place] [address] Feb, [facility] [address] [id number] [facility] [place] [address] Jan, [facility] [address] [id number] [facility] [place] [place] [address] Jan, [facility] [address] [id number] [facility] [place] [place] [address] Jan, [facility] [address] [id number] [facility] [place] [place] [address] Jan, [facility] [address] [id number] [facility] [place] [place] [address] Jan, [facility] [address] [id number] [facility] [place] [place] [address] Jan, [facility] [address] [id number] [facility] [place] [place] [address] Jan, [facility] [address] [id number] [address] [place] [address], [place] [address] Jan, [facility] [address] [id number] [address] [place] [address], [place] [address] Jan, [facility] [address] [id number] [address] [place] [address], [place] [address] Jan, [facility] [address] [id number] [address] [place] [address], [place] [address] Jan, [facility] [address] [id number] [address] [place] [address], [place] [address] Dec, [facility] [address] [id number] [address] [place] [address], [place] [address] Dec, [facility] [address] [id number] [address] [place] [address], [place] [address] Dec, [facility] [address] [id number] [address] [place] [address], [place] [address] Dec, [facility] [address] [id number] [address] [place] [address], [place] [address] Dec, [facility] [address] [id number] [facility] [place] [place] [address] Dec, [facility] [address] [id number] [address] [place] [address], [place] [address] November, [facility] [address] [id number] [address] [place] [address], [place] [address] November, [facility] [address] [id number] [address] [place] [address], [place] [address] November, [facility] [address] [id number] [address] [place] [address], [place] [address] November, [facility] [address] [id number] [address] [place] [address], [place] [address] November, [facility] [address] [id number] [address] [place] [address], [place] [address] November, [facility] [address] [id number] [address] [place] [address], [place] [address] Oct, [facility] [address] [id number] [address] [place] [address], [place] [address] Oct, [facility] [address] [id number] [address] [place] [address], [place] [address] Oct, [facility] [address] [id number] [address] [place] [address], [place] [address] Oct, [facility] [address] [id number] [address] [place] [address], [place] [address] 17 Sep, 2013 [facility] [address] [id number] [address] [place] [address], [place] [address] 17 Sep, 2013 [facility] [address] [id number] [address] [place] [address], [place] [address] 13 Sep, 2013 [facility] [address] [id number] [address] [place] [address], [place] [address] Sep, [facility] [address] [id number] [address] [place] [address], [place] [address] Sep, [facility] [address] [id number] [address] [place] [address], [place] [address] Aug, [facility] [address] [id number] [address] [place] [address], [place] [address] Aug, [facility] [address] [id number] [address] [place] [address], [place] [address] Aug, [facility] [address] [id number] [address] [place] [address], [place] [address] Aug, [facility] [address] [id number] [address] [place] [address], [place] [address] Aug, Via [facility] [place] [facility] [address] [place] [id number] May, [facility] [address] [id number] [address] [place] [address], [place] [address] May, [facility] [address] [id number] [address] [place] [address], [place] [address] May, [facility] [address] [id number] [address] [place] [address], [place] [address] May, [facility] [address] [id number] [address] [place] [address], [place] [address] May, [facility] [address] [id number] [address] [place] [address], [place] [address] Apr, [facility] [address] [id number] [address] [place] [address], [place] [address] Apr, [facility] [address] [id number] [address] [place] [address], [place] [address] Apr, [facility] [address] [id number] [address] [place] [address], [place] [address] Apr, [facility] [address] [id number] [address] [place] [address], [place] [address] Apr, [facility] [address] [id number] [address] [place] [address], [place] [address] Apr, [facility] [address] [id number] [address] [place] [address], [place] [address] Apr, [facility] [address] [id number] [address] [place] [address], [place] [address] Mar, [facility] [address] [id number] [address] [place] [address], [place] [address] Mar, [facility] [address] [id number] [address] [place] [address], [place] [address] 24 Mar, 2013 [facility] [address] [id number] [address] [place] [address], [place] [address] Mar, [facility] [address] [id number] [address] [place] [address], [place] [address] Mar, [facility] [address] [id number] [address] [place] [address], [place] [address] Mar, [facility] [address] [id number] [address] [place] [address], [place] [address] Feb, [facility] [address] [id number] [address] [place] [address], [place] [address] Feb, [facility] [address] [id number] [address] [place] [address], [place] [address] Feb, [facility] [address] [id number] [address] [place] [address], [place] [address] Feb, [facility] [address] [id number] [address] [place] [address], [place] [address] Feb, [facility] [address] [id number] [address] [place] [address], [place] [address] Feb, [facility] [address] [id number] [address] [place] [address], [place] [address] Jan, [facility] [address] [id number] [address] [place] [address], [place] [address] 24 Dec, 2012 [facility] [address] [id number] [address] [place] [address], [place] [address] Dec, [facility] [address] [id number] [address] [place] [address], [place] [address] Dec, [facility] [address] [id number] [address] [place] [address], [place] [address] Dec, [facility] [address] [id number] [address] [place] [address], [place] [address] Dec, [facility] [address] [id number] [address] [place] [address], [place] [address] Dec, [facility] [address] [id number] [address] [place] [address], [place] [address] Dec, [facility] [facility] [address] [id number] [address] [place] [address], [place] [address] Dec, [facility] [address] [id number] [address] [place] [address], [place] [address] Dec, [facility] [address] [id number] [address] [place] [address], [place] [address] November, [facility] [address] [id number] [address] [place] [address], [place] [id number] November, [facility] [address] [id number] [address] [place] [address], [place] [address] Oct, [facility] [address] [id number] [address] [place] [address], [place] [address] Sep, [facility] [address] [id number] [address] [place] [address], [place] [address] Sep, [facility] [address] [id number] [address] [place] [address], [place] [address] 15 Sep, 2012 [facility] [address] [id number] [address] [place] [address], [place] [address] Sep, [facility] [address] [id number] [address] [place] [id number] Aug, [facility] [address] [facility] [id number] [address] [place] [phone] Aug, [facility] [address] [id number] [address] [place] [phone] Jul, [facility] [address] [id number] [address] [place] [id number] Jul, [facility] [address] [id number] [address] [place] [phone] Jul, [facility] [address] [facility] [id number] [address] [place] [id number] Sep, [facility] [address] [id number] [address] [place] [phone] Sep, [facility] [address] [id number] [address] [place] [phone] Sep, IMMUNIZATIONS No Known Immunizations SOCIAL HISTORY [...] dizziness and nausea 12/06 Hospitalization History UTI, AMS-[facility] 09/21/16 Hospitalization History Large bowel obstruction, Dehydration -[facility] 01/01/17 Hospitalization History [facility]- UTI/Sepsis 01/18/2018 Hospitalization History [facility] - infection 4 days 05/2018
--- OUTSIDE RECORDS SUMMARY | 2020-01-14 22:59 | XMS REPORT ---
Author Author Melvin BENTLEY Organization [facility] Address [address] [place] [address] Care Team Providers Care Pediatric Licensed Practical Nurse Name Role Phone LINDA BENTLEY Unavailable PROBLEMS Type Condition ICD9-CM Code [id number] Code Onset Dates Condition S tatus SNOMED Code Problem Incontinence of feces, unspecified fecal incontinence type R15.9 Active 71258716 Problem Primary insomnia F51.01 Active 193 640107 Problem Hydronephrosis with ureteral stricture, not else where classified N13.1 Active 25045330 Problem Chronic fatigue, unspecified R53.82 A ctive 855379795 Problem Hypertension, benign I10 Active 12905234 Problem Mood disorder F39 Active 141930 05 Problem Neuropathy G62.9 Active 251192209 Problem Chronic pain syndrome G89.4 Active 108804070 Problem Abdominal pain, left lower quadrant R10.32 Active 969043461 Problem 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 Active 764859145 Problem 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 425118935 Problem Anxiety F41.9 Active 72023497 Problem Polyneuropathy G62.9 Active 21976 000 Problem Malignant neoplasm of colon, unspecified part of colon C18.9 Active 637314106 Problem Attention to urostomy Z43.6 Active 732762674 ALLERGIES No Information ENCOUNTERS Encounter Location Date Diagnosis [facility] [address] [facility] [id number] [address] [place] [phone] Dec, [facility] [address] [facility] [id number] [address] [place] [phone] November, Attention to urostomy Z43.6 [facility] [address] [facility] [id number] [address] [place] [phone] 16 Oct, 2019 Attention to urostomy Z43.6 and Hypertension, benign I10 [facility] [address] [id number] [address] [place] [phone] 15 Oct, 2019 [facility] [address] [id number] [address] [place] [phone] Sep, Neuropathy G62.9 ; Anxiety F 41.9 and Encounter for Medicare annual wellness exam Z00.00 [facility] [address] [id number] [address] [place] [id number] 12 Aug, 2019 Anxiety F41.9 ; Neuropathy G 62.9 and Encounter for Medicare annual wellness exam Z00.00 [facility] [address] [id number] [address] [place] [phone] Jul, [place] [address] [id number] [address] [place] [phone] Jul, Primary insomnia F51.01 and Anxiety F41.9 [place] [address] [id number] [address] [place] [phone] Jul, Primary insomnia F51.01 ; Ne uropathy G62.9 and Encounter for Medicare annual wellness exam Z00.00 [place] [id number] [id number] [address] [place] [phone] 23 Jun, 2019 Neuropathy G62.9 and Encount er for Medicare annual wellness exam Z00.00 [facility] [address] [id number] [address] [place] [phone] Jun, Primary insomnia F51.01 [place] [address] [id number] [address] [place] [place] [phone] Jun, Primary insomnia F51.01 ; En counter for Medicare annual wellness exam Z00.00 and Neuropathy G62.9 [place] [address] [id number] [address] [place] [phone] Jun, Malignant neoplasm of colon, unspecified part of colon C18.9 and Chronic fatigue, unspecified R53.82 [place] [address] [id number] [address] [place] [id number] May, Neuropathy G62.9 and Encount er for Medicare annual wellness exam Z00.00 [facility] [address] [id number] [address] [place] [phone] 15 May, 2019 Primary insomnia F51.01 [facility] [address] [id number] [address] [place] [phone] 01 May, 2019 Neuropathy G62.9 and Anxiety F41.9 [facility] [address] [id number] [address] [place] [phone] 30 Apr, 2019 Encounter for Medicare annua l wellness exam Z00.00 [facility] [address] [id number] [address] [place] [id number] 16 Apr, 2019 Neuropathy G62.9 and Encount er for Medicare annual wellness exam Z00.00 [facility] [address] [id number] [address] [place] [phone] 26 Mar, 2019 Neuropathy G62.9 and Primary insomnia F51.01 [facility] [address] [id number] [address] [place] [id number] 18 Mar, 2019 [facility] [address] [id number] [address] [place] [id number] Feb, Primary insomnia F51.01 ; Ne uropathy G62.9 and Encounter for Medicare annual wellness exam Z00.00 [facility] [address] [id number] [address] [place] [phone] Feb, Neuropathy G62.9 and Encount er for Medicare annual wellness exam Z00.00 [facility] [address] [id number] [address] [place] [phone] Feb, Primary insomnia F51.01 and High risk medication use Z79.899 [facility] [address] [id number] [address] [place] [phone] Jan, [facility] [address] [id number] [address] [place] [phone] Jan, Neuropathy G62.9 [facility] [address] [id number] [address] [place] [phone] Dec, [facility] [address] [id number] [address] [place] [phone] Dec, Encounter for Medicare annua l wellness exam Z00.00 and Neuropathy G62.9 [facility] [address] [id number] [address] [place] [phone] November, [facility] [address] [id number] [address] [place] [phone] November, Encounter for Medicare annua l wellness exam Z00.00 ; 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 ; Mood disorder F39 ; Chronic fatigue, unspecified R53.82 and Neuropathy G62.9 [facility] [address] [id number] [address] [place] [phone] November, Neuropathy G62.9 [facility] [address] [id number] [address] [place] [phone] Oct, Neuropathy G62.9 [facility] [address] [id number] [address] [place] [phone] Oct, Hypertension, benign I10 and Anxiety F41.9 [facility] [address] [id number] [address] [place] [phone] Oct, [facility] [address] [id number] [address] [place] [id number] Oct, [facility] [address] [id number] [address] [place] [id number] Oct, [facility] [address] [id number] [address] [place] [phone] Oct, Neuropathy G62.9 [facility] [address] [id number] [address] [place] [phone] Sep, [facility] [address] [id number] [address] [place] [id number] Sep, Neuropathy G62.9 [facility] [address] [id number] [address] [place] [phone] Sep, [facility] [address] [id number] [address] [place] [phone] Sep, H/O malignant carcinoid tumo r of 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 and Primary insomnia F51.01 [facility] [address] [id number] [address] [place] [place] [phone] Aug, [facility] [address] [id number] [address] [place] [id number] Aug, Neuropathy G62.9 [facility] [address] [id number] [address] [place] [phone] Aug, [facility] [address] [facility] [id number] [address] [place] [id number] Jul, Non-recurrent acute suppurat francine otitis media of left ear without spontaneous rupture of tympanic membrane H66.002 [facility] [address] [id number] [address] [place] [id number] Jul, Neuropathy G62.9 [facility] [address] [id number] [address] [place] [phone] Jun, [facility] [address] [facility] [id number] [address] [place] [phone] Jun, [facility] [address] [id number] [address] [place] [phone] Jun, Neuropathy G62.9 [facility] [address] [id number] [address] [place] [phone] Jun, [facility] [address] [id number] [address] [place] [phone] Jun, [facility] [address] [facility] [id number] [address] [place] [phone] Jun, Lumbar neuritis M54.16 [facility] [address] [id number] 30 May, 2018 Neuropathy G62.9 [facility] [address] [phone] May, [facility] [address] [id number] 05 May, 2018 Neuropathy G62.9 and Hyperte nsion, benign I10 [place] [address] [id number] Apr, Polyneuropathy G62.9 and Hyp ertension, benign I10 [place] [address] [id number] 17 Mar, 2018 Chronic pain syndrome G89.4 and Hypertension, benign I10 [place] [address] [phone] Mar, Polyneuropathy G62.9 and Hyp ertension, benign I10 [facility] [address] [id number] Feb, [facility] [address] [address] Feb, Hypertension, benign I10 [place] [address] [address] Feb, Hypertension, benign I10 ; P olyneuropathy G62.9 and Primary insomnia F51.01 [facility] [address] [id number] Jan, Hypertension, benign I10 and Polyneuropathy G62.9 [facility] [address] [id number] Jan, Hypertension, benign I10 and Neuropathy G62.9 [facility] [address] [id number] Jan, [facility] [address] [place] [address] Dec, Polyneuropathy G62.9 [facility] [address] [id number] [address] [place] [phone] Dec, Mood disorder F39 [facility] [address] [id number] [address] [place] [phone] November, Polyneuropathy G62.9 [facility] [address] [facility] [id number] [address] [place] [phone] November, Medicare annual wellness vis it, initial Z00.00 [facility] [address] [facility] [id number] [address] [place] [phone] November, Mood disorder F39 [facility] [address] [facility] [id number] [address] [place] [phone] Oct, Polyneuropathy G62.9 [facility] [address] [facility] [id number] [address] [place] [phone] Oct, [facility] [address] [id number] [address] [place] [phone] Oct, [facility] [address] [facility] [id number] [address] [place] [phone] Oct, Mood disorder F39 ; Attentio n to urostomy Z43.6 ; Chronic pain syndrome G89.4 and Polyneuropathy G62.9 [facility] [address] [id number] [address] [place] [phone] Sep, Polyneuropathy G62.9 [facility] [address] [facility] [id number] [address] [place] [phone] Sep, [facility] [address] [facility] [id number] [address] [place] [phone] Sep, Polyneuropathy G62.9 [facility] [address] [facility] [id number] [address] [place] [phone] Aug, Polyneuropathy G62.9 [facility] [address] [id number] [address] [place] [phone] Aug, Malignant neoplasm of colon, unspecified part of colon C18.9 and Polyneuropathy G62.9 [facility] [address] [facility] [id number] [address] [place] [phone] Aug, Neuropathy G62.9 and Polyneu ropathy G62.9 [facility] [address] [facility] [id number] [address] [place] [phone] Jul, Encounter for drug screening Z02.83 [facility] [address] [facility] [id number] [address] [place] [id number] Jul, Polyneuropathy G62.9 [facility] [address] [facility] [id number] [address] [place] [phone] Jul, [facility] [address] [facility] [id number] [address] [place] [phone] Jul, Neuropathy G62.9 and Anxiety F41.9 [facility] [address] [facility] [id number] [address] [place] [phone] Jul, [facility] [address] [facility] [id number] [address] [place] [phone] Jul, [facility] [address] [facility] [id number] [address] [place] [phone] Jul, [facility] [address] [facility] [id number] [address] [place] [id number] Jul, Polyneuropathy G62.9 [facility] [address] [facility] [id number] [address] [place] [phone] Jul, [facility] [address] [facility] [id number] [address] [place] [phone] Jun, [facility] [address] [facility] [id number] [address] [place] [phone] Jun, [facility] [address] [facility] [id number] [address] [place] [phone] Jun, [facility] [address] [id number] [place] [address] Jun, Encounter for dental examina tion Z01.20 [facility] [address] [facility] [id number] [address] [place] [phone] Jun, Polyneuropathy G62.9 and Anx iety F41.9 [facility] [address] [facility] [id number] [address] [place] [phone] Jun, [facility] [address] [id number] [place] [address] May, Dental examination Z01.20 [facility] [address] [facility] [id number] [address] [place] [phone] May, Polyneuropathy G62.9 [facility] [address] [facility] [id number] [address] [place] [phone] Apr, Polyneuropathy G62.9 [facility] [address] [facility] [id number] [address] [place] [phone] Apr, Polyneuropathy G62.9 [facility] [address] [facility] [id number] [address] [place] [phone] Apr, Hypertension, benign I10 ; P olyneuropathy G62.9 and Anxiety F41.9 [facility] [address] [facility] [id number] [address] [place] [phone] Apr, Primary insomnia F51.01 and Polyneuropathy G62.9 [facility] [address] [facility] [id number] [address] [place] [phone] Apr, Primary insomnia F51.01 and Polyneuropathy G62.9 [facility] [address] [facility] [id number] [address] [place] [phone] Mar, Primary insomnia F51.01 [facility] [address] [facility] [id number] [address] [place] [phone] Mar, [facility] [address] [id number] [address] [place] [address], [place] [address] Mar, Polyneuropathy G62.9 [facility] [address] [id number] [address] [place] [address], [place] [address] Feb, Primary insomnia F51.01 [facility] [address] [id number] [address] [place] [address], [place] [address] Feb, [facility] [address] [id number] [address] [place] [address], [place] [address] Feb, [facility] [address] [id number] [address] [place] [address], [place] [address] Feb, Polyneuropathy G62.9 [facility] [address] [id number] [address] [place] [address], [place] [address] Feb, Primary insomnia F51.01 [facility] [address] [id number] [address] [place] [address], [place] [address] Jan, [facility] [address] [id number] [address] [place] [address], [place] [address] Jan, [facility] [address] [id number] [address] [place] [address], [place] [address] Dec, [facility] [address] [id number] [address] [place] [phone] Dec, Primary insomnia F51.01 [facility] [address] [id number] [address] [place] [address], [place] [address] Dec, Primary insomnia F51.01 [facility] [address] [id number] [address] [place] [address], [place] [address] Dec, [facility] [address] [id number] [address] [place] [phone] Dec, [facility] [address] [id number] [address] [place] [phone] Dec, [facility] [address] [id number] [address] [place] [phone] Dec, [facility] [address] [facility] [id number] [address] [place] [phone] November, Primary insomnia F51.01 and Polyneuropathy G62.9 [facility] [address] [id number] [address] [place] [phone] November, [facility] [address] [id number] [address] [place] [phone] November, Abdominal pain, left lower q uadrant R10.32 [facility] [address] [facility] [id number] [address] [place] [phone] November, [facility] [address] [facility] [id number] [address] [place] [phone] Oct, [facility] [address] [facility] [id number] [address] [place] [phone] Oct, Abdominal pain, left lower q uadrant R10.32 ; 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 and Neuropathy G62.9 [facility] [address] [facility] [id number] [address] [place] [phone] Oct, [facility] [address] [facility] [id number] [address] [place] [phone] Sep, [facility] [id number] [place] [id number] Sep, [facility] [address] [facility] [id number] [address] [place] [phone] Sep, [facility] [address] [facility] [id number] [address] [place] [phone] Aug, [facility] [address] [facility] [id number] [address] [place] [phone] Aug, [facility] [address] [facility] [id number] [address] [place] [phone] Aug, Abdominal pain, left lower q uadrant R10.32 ; Neuropathy G62.9 and Anxiety F41.9 [facility] [id number] [place] [phone] Jul, [facility] [address] [id number] [address] [place] [phone] Jul, [facility] [address] [id number] [address] [place] [phone] Jul, [facility] [address] [id number] [address] [place] [phone] Jul, [facility] [address] [id number] [address] [place] [phone] Jul, [facility] [address] [id number] [address] [place] [phone] Jun, [facility] [address] [id number] [address] [place] [phone] May, [facility] [address] [id number] [address] [place] [phone] May, [facility] [address] [id number] [address] [place] [phone] Apr, [facility] [address] [id number] [address] [place] [phone] Apr, Muscle spasms of both lower extremities M62.838 and Cellulitis, unspecified cellulitis site L03.90 [facility] [address] [id number] [address] [place] [phone] Apr, [facility] [address] [id number] [address] [place] [phone] Mar, Generalized abdominal pain R 10.84 [facility] [address] [id number] [address] [place] [phone] Mar, [facility] [address] [id number] [address] [place] [phone] 14 Mar, 2016 [facility] [address] [address] [id number] [address] [place] [id number] 14 Mar, 2016 [facility] [address] [id number] [address] [place] [id number] 13 Mar, 2016 [facility] [address] [id number] [address] [place] [id number] 12 Mar, 2016 [facility] [address] [id number] [address] [place] [id number] 09 Mar, 2016 [facility] [address] [id number] [address] [place] [id number] 06 Mar, 2016 [facility] [address] [id number] [address] [place] [address] Feb, Other specified diseases of anus and rectum K62.89 [facility] [address] [id number] [address] [place] [address] Feb, [facility] [address] [id number] [address] [place] [address] Feb, Dizziness R42 [facility] [address] [id number] [address] [place] [id number] Feb, [facility] [address] [id number] [address] [place] [address] Jan, Polyneuropathy G62.9 [facility] [address] [id number] [address] [place] [address] Jan, Other specified diseases of anus and rectum K62.89 [facility] [address] [id number] [address] [place] [address] Jan, [facility] [address] [id number] [address] [place] [address] Jan, [facility] [address] [id number] [address] [place] [id number] Jan, [facility] [address] [id number] [address] [place] [address], [place] [address] Jan, Dizziness R42 [facility] [address] [id number] [address] [place] [address], [place] [address] Dec, [facility] [address] [id number] [address] [place] [address], [place] [address] Dec, [facility] [address] [id number] [address] [place] [address], [place] [address] Dec, [facility] [address] [id number] [address] [place] [address], [place] [address] Dec, Dizziness R42 [facility] [address] [id number] [address] [place] [address], [place] [address] November, [facility] [address] [id number] [address] [place] [address], [place] [address] Oct, [facility] [address] [id number] [address] [place] [address], [place] [address] Oct, [facility] [address] [id number] [address] [place] [address], [place] [address] Oct, [facility] [address] [id number] [address] [place] [address], [place] [address] Oct, [facility] [address] [id number] [address] [place] [address], [place] [address] Sep, [facility] [address] [id number] [address] [place] [address], [place] [address] Sep, Primary insomnia F51.01 [facility] [address] [id number] [address] [place] [address], [place] [address] Sep, Primary insomnia F51.01 [facility] [address] [id number] [address] [place] [address], [place] [address] Sep, [facility] [address] [id number] [address] [place] [address], [place] [address] Aug, [facility] [address] [address] Aug, [facility] [address] [address] Aug, Primary insomnia F51.01 ; Mo od disorder F39 ; Nausea and vomiting, unspecified intactability, vomiting of unspecified type R11.2 and Diarrhea R19.7 [facility] [address] [address] Aug, [facility] [address] [address] Aug, Folliculitis L73.9 [facility] [address] [id number] Aug, [facility] [address] [id number] Aug, [facility] [address] [address] Jul, Folliculitis L73.9 [facility] [address] [address] Jul, [facility] [address] [address] Jun, Folliculitis L73.9 [facility] [address] [address] Jun, [facility] [address] [address] May, Polyneuropathy G62.9 [facility] [address] [address] May, Other specified diseases of anus and rectum K62.89 [facility] [address] [address] May, [facility] [address] [id number] [address] [place] [address] May, Primary insomnia F51.01 [facility] [address] [facility] [id number] [address] [place] [address] May, [facility] [address] [facility] [id number] [address] [place] [address] May, [facility] [address] [id number] [address] [address] Apr, Other specified diseases of anus and rectum K62.89 ; Chronic fatigue R53.82 ; Urinary tract infection, site not specified N39.0 and Enterococcus as the cause of diseases classified elsewhere B95.2 [facility] [address] [facility] [id number] [address] [place] [id number] 16 Apr, 2015 [facility] [address] [facility] [id number] [address] [place] [id number] 15 Apr, 2015 [facility] [address] [facility] [id number] [address] [place] [id number] 14 Apr, 2015 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 [facility] [address] [facility] [id number] [address] [place] [id number] 05 Apr, 2015 [facility] [address] [facility] [id number] [address] [place] [id number] 26 Mar, 2015 [facility] [address] [facility] [id number] [address] [place] [id number] 23 Mar, 2015 [facility] [address] [id number] [address] [place] [id number] 17 Mar, 2015 [facility] [address] [facility] [id number] [address] [place] [id number] 14 Mar, 2015 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 [facility] [address] [facility] [id number] [address] [place] [address] 12 Mar, 2015 [facility] [address] [facility] [id number] [address] [place] [address] Mar, [facility] [address] [id number] [address] [place] [id number] Mar, [facility] [address] [id number] [address] [place] [address] Mar, [facility] [address] [id number] [address] [place] [id number] Feb, [facility] [address] [id number] [address] [place] [id number] Feb, [facility] [address] [id number] [address] [place] [id number] Feb, [facility] [address] [id number] [address] [place] [id number] Jan, [facility] [address] [id number] [address] [place] [id number] Jan, Nausea 787.02 and Neuropathy 355.9 [facility] [address] [id number] [address] [place] [id number] Jan, [facility] [address] [id number] [address] [place] [id number] Jan, [facility] [address] [id number] [address] [place] [id number] Jan, [facility] [address] [id number] [address] [place] [id number] Jan, Dental examination V72.2 [facility] [address] [id number] [address] [place] [phone] Jan, [facility] [address] [id number] [address] [place] [id number] Dec, [facility] [address] [id number] [address] [place] [id number] Dec, [facility] [address] [id number] [address] [place] [id number] Dec, Neuropathy 355.9 [facility] [address] [id number] [address] [place] [address], [place] [address] November, [facility] [address] [id number] [address] [place] [address], [place] [address] November, [facility] [address] [id number] [address] [place] [address], [place] [address] November, [facility] [address] [id number] [address] [place] [address], [place] [address] Oct, [facility] [address] [id number] [address] [place] [address], [place] [address] Oct, [facility] [address] [id number] [address] [place] [address], [place] [address] Sep, [facility] [address] [id number] [address] [place] [address], [place] [address] Sep, [facility] [address] [id number] [address] [place] [address], [place] [address] Sep, [facility] [address] [id number] [address] [place] [address], [place] [address] Sep, [facility] [address] [id number] [address] [place] [address], [place] [address] Sep, [facility] [address] [id number] [address] [place] [address], [place] [address] Sep, [facility] [address] [id number] [address] [place] [address], [place] [address] Sep, [facility] [address] [id number] [address] [place] [address], [place] [address] Sep, [facility] [address] [id number] [address] [place] [address], [place] [address] Aug, [facility] [address] [id number] [address] [place] [address], [place] [address] Aug, [facility] [address] [id number] [address] [place] [address], [place] [address] Aug, 2014 [facility] [address] [id number] [address] [place] [address], [place] [address] Aug, 2014 [facility] [address] [id number] [address] [place] [address], [place] [address] Aug, 2014 [facility] [address] [id number] [address] [place] [address], [place] [address] Aug, 2014 [facility] [address] [id number] [address] [place] [address], [place] [address] Aug, 2014 [facility] [address] [id number] [address] [place] [address], [place] [address] Aug, 2014 [facility] [address] [id number] [address] [place] [address], [place] [address] Jul, [facility] [address] [id number] [address] [place] [address], [place] [address] Jul, [facility] [address] [id number] [address] [place] [address], [place] [address] Jun, [facility] [address] [id number] [address] [place] [address], [place] [address] Jun, [facility] [address] [id number] [address] [place] [address], [place] [address] Jun, [facility] [address] [id number] [address] [place] [address], [place] [address] Jun, [facility] [address] [id number] [address] [place] [address], [place] [address] Jun, [facility] [address] [id number] [address] [place] [address], [place] [address] Jun, [facility] [address] [id number] [address] [place] [address], [place] [address] Jun, [facility] [address] [id number] [address] [place] [address], [place] [address] Jun, [facility] [address] [id number] [address] [place] [address], [place] [address] Jun, [facility] [address] [id number] [address] [place] [address], [place] [address] Jun, [facility] [address] [id number] [address] [place] [address], [place] [address] Jun, [facility] [address] [id number] [address] [place] [address], [place] [address] May, [facility] [address] [id number] [address] [place] [address], [place] [address] May, [facility] [address] [id number] [address] [place] [address], [place] [address] May, [facility] [address] [id number] [address] [place] [address], [place] [address] May, [facility] [address] [id number] [address] [place] [address], [place] [address] May, [facility] [address] [id number] [address] [place] [address], [place] [address] May, [facility] [address] [id number] [address] [place] [address], [place] [address] May, [facility] [address] [id number] [address] [place] [address], [place] [address] May, [facility] [address] [id number] [address] [place] [address], [place] [address] May, [facility] [address] [id number] [address] [place] [address], [place] [address] Apr, [facility] [address] [id number] [address] [place] [address], [place] [address] Apr, [facility] [address] [id number] [address] [place] [address], [place] [address] Apr, [facility] [address] [id number] [facility] [address] Apr, [facility] [address] [id number] [address] [place] [address], [place] [address] Apr, [facility] [address] [id number] [address] [place] [address], [place] [address] Mar, [facility] [address] [id number] [address] [place] [address], [place] [address] Mar, [facility] [address] [id number] [address] [place] [address], [place] [address] Feb, [facility] [address] [id number] [address] [place] [address], [place] [address] Feb, [facility] [address] [id number] [address] [place] [address], [place] [address] Feb, [facility] [address] [id number] [address] [place] [address], [place] [address] Feb, [facility] [address] [id number] [address] [place] [address], [place] [address] Feb, [facility] [address] [id number] [address] [place] [address], [place] [address] Feb, [facility] [address] [id number] [address] [place] [address], [place] [address] Jan, [facility] [address] [id number] [address] [place] [address], [place] [address] Jan, [facility] [address] [id number] [address] [place] [address], [place] [address] Jan, [facility] [address] [id number] [address] [place] [address], [place] [address] Jan, [facility] [address] [id number] [address] [place] [address], [place] [address] Jan, [facility] [address] [id number] [address] [place] [address], [place] [address] Jan, [facility] [address] [id number] [facility] [address] Jan, [facility] [address] [id number] [address] [place] [address], [place] [address] Jan, [facility] [address] [id number] [facility] [address] Jan, [facility] [address] [id number] [address] [place] [address], [place] [address] Jan, [facility] [address] [id number] [address] [place] [address], [place] [address] Jan, [facility] [address] [id number] [address] [place] [address], [place] [address] Dec, [facility] [address] [id number] [address] [place] [address], [place] [address] Dec, [facility] [address] [id number] [address] [place] [address], [place] [address] Dec, [facility] [address] [id number] [address] [place] [address], [place] [address] Dec, [facility] [address] [id number] [address] [place] [address], [place] [address] Dec, [facility] [address] [id number] [address] [place] [address], [place] [address] Dec, [facility] [address] [id number] [address] [place] [address], [place] [address] November, [facility] [address] [id number] [address] [place] [address], [place] [address] November, [facility] [address] [id number] [address] [place] [address], [place] [address] November, [facility] [address] [id number] [address] [place] [address], [place] [address] November, [facility] [address] [id number] [address] [place] [address], [place] [address] November, [facility] [address] [id number] [address] [place] [address], [place] [address] November, [facility] [address] [id number] [address] [place] [address], [place] [address] Oct, [facility] [address] [id number] [address] [place] [address], [place] [address] Oct, [facility] [address] [id number] [address] [place] [address], [place] [address] Oct, [facility] [address] [id number] [address] [place] [address], [place] [address] Oct, [facility] [address] [id number] [address] [place] [address], [place] [address] Sep, [facility] [address] [id number] [address] [place] [address], [place] [address] Sep, [facility] [address] [id number] [address] [place] [address], [place] [address] Sep, [facility] [address] [id number] [address] [place] [address], [place] [address] Sep, [facility] [address] [id number] [address] [place] [address], [place] [address] Sep, [facility] [address] [id number] [address] [place] [address], [place] [address] Aug, [facility] [address] [id number] [address] [place] [address], [place] [address] Aug, [facility] [address] [id number] [address] [place] [address], [place] [address] Aug, [facility] [address] [id number] [address] [place] [address], [place] [address] Aug, [facility] [address] [id number] [address] [place] [address], [place] [address] 14 Aug, 2013 [facility] [address] [place] [facility] [place] [id number] May, [facility] [address] [id number] [address] [place] [address], [place] [address] May, [facility] [address] [id number] [address] [place] [address], [place] [address] May, [facility] [address] [id number] [address] [place] [address], [place] [address] May, [facility] [address] [id number] [address] [place] [address], [place] [address] May, [facility] [address] [id number] [address] [place] [address], [place] [address] Apr, [facility] [address] [id number] [address] [place] [address], [place] [address] Apr, [facility] [address] [id number] [address] [place] [address], [place] [address] Apr, [facility] [address] [id number] [address] [place] [address], [place] [address] Apr, [facility] [address] [id number] [address] [place] [address], [place] [address] Apr, [facility] [address] [id number] [address] [place] [address], [place] [address] Apr, [facility] [address] [id number] [address] [place] [address], [place] [address] Apr, [facility] [address] [id number] [address] [place] [address], [place] [address] 28 Mar, 2013 [facility] [address] [id number] [address] [place] [address], [place] [address] Mar, [facility] [address] [id number] [address] [place] [address], [place] [address] 24 Mar, 2013 [facility] [address] [id number] [address] [place] [address], [place] [address] 16 Mar, 2013 [facility] [address] [id number] [address] [place] [address], [place] [address] Mar, [facility] [address] [id number] [address] [place] [address], [place] [address] Mar, [facility] [address] [id number] [address] [place] [address], [place] [address] Feb, [facility] [address] [id number] [address] [place] [address], [place] [address] Feb, [facility] [address] [id number] [address] [place] [address], [place] [address] Feb, [facility] [address] [id number] [address] [place] [address], [place] [address] Feb, [facility] [address] [id number] [address] [place] [address], [place] [address] Feb, [facility] [address] [id number] [address] [place] [address], [place] [address] Feb, [facility] [address] [id number] [address] [place] [address], [place] [address] Jan, [facility] [address] [id number] [address] [place] [address], [place] [address] Dec, [facility] [address] [id number] [address] [place] [address], [place] [address] Dec, [facility] [address] [id number] [address] [place] [address], [place] [address] Dec, [facility] [address] [id number] [address] [place] [address], [place] [address] Dec, [facility] [address] [id number] [address] [place] [address], [place] [address] Dec, [facility] [address] [address] [id number] [address] [place] [address], [place] [address] Dec, [facility] [address] [id number] [address] [place] [address], [place] [address] 17 Dec, 2012 [facility] [address] [id number] [address] [place] [address], [place] [address] Dec, [facility] [address] [id number] [address] [place] [address], [place] [address] Dec, [facility] [address] [id number] [address] [place] [address], [place] [address] November, [facility] [address] [id number] [address] [place] [address], [place] [address] November, [facility] [address] [id number] [address] [place] [address], [place] [address] Oct, [facility] [address] [id number] [address] [place] [address], [place] [address] Sep, [facility] [address] [id number] [address] [place] [address], [place] [address] Sep, [facility] [address] [id number] [address] [place] [address], [place] [address] 15 Sep, 2012 [facility] [address] [id number] [address] [place] [address], [place] [address] Sep, [facility] [address] [id number] [address] [place] [address], [place] [address] Aug, [facility] [address] [id number] [address] [place] [address], [place] [address] Aug, [facility] [address] [id number] [address] [place] [address], [place] [address] Jul, [facility] [address] [id number] [address] [place] [address], [place] [address] Jul, [facility] [address] [id number] [address] [place] [address], [place] [address] Jul, [facility] [address] [id number] [address] [place] [address], [place] [address] Sep, [facility] [address] [facility] [id number] [address] [place] [address] Sep, [facility] [address] [facility] [id number] [address] [place] [id number] Sep, IMMUNIZATIONS No Known Immunizations SOCIAL HISTORY [...] dizziness and nausea 12/06 Hospitalization History UTI, AMS-VC 09/21/16 Hospitalization History Large bowel obstruction, Dehydration -[facility] 01/01/17 Hospitalization History [facility]- UTI/Sepsis 01/18/2018 Hospitalization History [facility] - infection 4 days 05/2018
--- OUTSIDE RECORDS SUMMARY | 2020-01-14 22:59 | XMS REPORT ---
Author Author Melvin BENTLEY Organization [facility] Address [address] [place] [address] Care Team Providers Care Ab Initio Etl Developer Name Role Phone LINDA BENTLEY Unavailable PROBLEMS Type Condition ICD9-CM Code GHA45-RE Code Onset Dates Condition S tatus SNOMED Code Problem Incontinence of feces, unspecified fecal incontinence type R15.9 Active 83207701 Problem Primary insomnia F51.01 Active 193 973674 Problem Hydronephrosis with ureteral stricture, not else where classified N13.1 Active 13999533 Problem Chronic fatigue, unspecified R53.82 A ctive 240712810 Problem Hypertension, benign I10 Active 92877491 Problem Mood disorder F39 Active 446902 05 Problem Neuropathy G62.9 Active 941051453 Problem Chronic pain syndrome G89.4 Active 800212631 Problem Abdominal pain, left lower quadrant R10.32 Active 845029298 Problem 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 Active 319205505 Problem 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 471965666 Problem Anxiety F41.9 Active 24032714 Problem Polyneuropathy G62.9 Active 72903 000 Problem Malignant neoplasm of colon, unspecified part of colon C18.9 Active 121041718 Problem Attention to urostomy Z43.6 Active 137075195 ALLERGIES No Information ENCOUNTERS Encounter Location Date Diagnosis [facility] [address] [facility] [id number] [address] [place] [id number] Dec, [facility] [address] [facility] [id number] [address] [place] [id number] November, Attention to urostomy Z43.6 [facility] [address] [facility] [id number] [address] [place] [id number] 16 Oct, 2019 Attention to urostomy Z43.6 and Hypertension, benign I10 [facility] [address] [id number] [address] [place] [id number] 15 Oct, 2019 [facility] [address] [id number] [address] [place] [id number] Sep, Neuropathy G62.9 ; Anxiety F 41.9 and Encounter for Medicare annual wellness exam Z00.00 [facility] [address] [id number] [address] [place] [id number] 12 Aug, 2019 Anxiety F41.9 ; Neuropathy G 62.9 and Encounter for Medicare annual wellness exam Z00.00 [facility] [address] [id number] [address] [place] [id number] Jul, [place] [address] [id number] [address] [place] [id number] Jul, Primary insomnia F51.01 and Anxiety F41.9 [place] [address] [id number] [address] [place] [id number] Jul, Primary insomnia F51.01 ; Ne uropathy G62.9 and Encounter for Medicare annual wellness exam Z00.00 [place] [address] [id number] [address] [place] [id number] 23 Jun, 2019 Neuropathy G62.9 and Encount er for Medicare annual wellness exam Z00.00 [facility] [address] [id number] [address] [place] [id number] Jun, Primary insomnia F51.01 [place] [address] [id number] [address] [place] [id number] Jun, Primary insomnia F51.01 ; En counter for Medicare annual wellness exam Z00.00 and Neuropathy G62.9 [place] [address] [id number] [address] [place] [id number] Jun, Malignant neoplasm of colon, unspecified part of colon C18.9 and Chronic fatigue, unspecified R53.82 [place] [address] [id number] [address] [place] [id number] May, Neuropathy G62.9 and Encount er for Medicare annual wellness exam Z00.00 [facility] [address] [id number] [address] [place] [id number] 15 May, 2019 Primary insomnia F51.01 [facility] [address] [id number] [address] [place] [id number] 01 May, 2019 Neuropathy G62.9 and Anxiety F41.9 [facility] [address] [id number] [address] [place] [id number] 30 Apr, 2019 Encounter for Medicare annua l wellness exam Z00.00 [facility] [address] [id number] [address] [place] [id number] 16 Apr, 2019 Neuropathy G62.9 and Encount er for Medicare annual wellness exam Z00.00 [facility] [address] [id number] [address] [place] [id number] 26 Mar, 2019 Neuropathy G62.9 and Primary insomnia F51.01 [facility] [address] [id number] [address] [place] [id number] 18 Mar, 2019 [facility] [address] [id number] [address] [place] [id number] Feb, Primary insomnia F51.01 ; Ne uropathy G62.9 and Encounter for Medicare annual wellness exam Z00.00 [facility] [address] [id number] [address] [place] [id number] Feb, Neuropathy G62.9 and Encount er for Medicare annual wellness exam Z00.00 [facility] [address] [id number] [address] [place] [id number] Feb, Primary insomnia F51.01 and High risk medication use Z79.899 [facility] [address] [id number] [address] [place] [id number] Jan, [facility] [address] [id number] [address] [place] [id number] Jan, Neuropathy G62.9 [facility] [address] [id number] [address] [place] [id number] Dec, [facility] [address] [id number] [address] [place] [id number] Dec, Encounter for Medicare annua l wellness exam Z00.00 and Neuropathy G62.9 [facility] [address] [id number] [address] [place] [id number] November, [facility] [address] [id number] [address] [place] [id number] November, Encounter for Medicare annua l wellness exam Z00.00 ; 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 ; Mood disorder F39 ; Chronic fatigue, unspecified R53.82 and Neuropathy G62.9 [facility] [address] [id number] [address] [place] [id number] November, Neuropathy G62.9 [facility] [address] [id number] [address] [place] [id number] Oct, Neuropathy G62.9 [facility] [address] [id number] [address] [place] [id number] Oct, Hypertension, benign I10 and Anxiety F41.9 [facility] [address] [id number] [address] [place] [id number] Oct, [facility] [address] [id number] [address] [place] [id number] Oct, [facility] [address] [id number] [address] [place] [id number] Oct, [facility] [address] [id number] [address] [place] [id number] Oct, Neuropathy G62.9 [facility] [address] [id number] [address] [place] [id number] Sep, [facility] [address] [id number] [address] [place] [id number] Sep, Neuropathy G62.9 [facility] [address] [id number] [address] [place] [id number] Sep, [facility] [address] [id number] [address] [place] [id number] Sep, H/O malignant carcinoid tumo r of 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 and Primary insomnia F51.01 [facility] [address] [id number] [address] [place] [id number] Aug, [facility] [address] [id number] [address] [place] [id number] Aug, Neuropathy G62.9 [facility] [address] [id number] [address] [place] [id number] Aug, [facility] [address] [facility] [id number] [address] [place] [id number] Jul, Non-recurrent acute suppurat francine otitis media of left ear without spontaneous rupture of tympanic membrane H66.002 [facility] [address] [id number] [address] [place] [id number] Jul, Neuropathy G62.9 [facility] [address] [id number] [address] [place] [id number] Jun, [facility] [address] [facility] [id number] [address] [place] [id number] Jun, [facility] [address] [id number] [address] [place] [id number] Jun, Neuropathy G62.9 [facility] [address] [id number] [address] [place] [id number] Jun, [facility] [address] [id number] [address] [place] [id number] Jun, [facility] [address] [facility] [id number] [address] [place] [id number] Jun, Lumbar neuritis M54.16 [facility] [address] [id number] 30 May, 2018 Neuropathy G62.9 [facility] [address] [address] May, [facility] [address] [id number] 05 May, 2018 Neuropathy G62.9 and Hyperte nsion, benign I10 [place] [address] [address] Apr, Polyneuropathy G62.9 and Hyp ertension, benign I10 [place] [address] [id number] 17 Mar, 2018 Chronic pain syndrome G89.4 and Hypertension, benign I10 [place] [address] [id number] Mar, Polyneuropathy G62.9 and Hyp ertension, benign I10 [facility] [address] [address] Feb, [facility] [address] [address] Feb, Hypertension, benign I10 [place] [address] [id number] Feb, Hypertension, benign I10 ; P olyneuropathy G62.9 and Primary insomnia F51.01 [facility] [address] [address] Jan, Hypertension, benign I10 and Polyneuropathy G62.9 [facility] [address] [id number] Jan, Hypertension, benign I10 and Neuropathy G62.9 [facility] [address] [id number] Jan, [facility] [address] [place] [address] Dec, Polyneuropathy G62.9 [facility] [address] [id number] [address] [place] [id number] Dec, Mood disorder F39 [facility] [address] [id number] [address] [place] [id number] November, Polyneuropathy G62.9 [facility] [address] [facility] [id number] [address] [place] [id number] November, Medicare annual wellness vis it, initial Z00.00 [facility] [address] [facility] [id number] [address] [place] [id number] November, Mood disorder F39 [facility] [address] [facility] [id number] [address] [place] [id number] Oct, Polyneuropathy G62.9 [facility] [address] [facility] [id number] [address] [place] [id number] Oct, [facility] [address] [id number] [address] [place] [id number] Oct, [facility] [address] [facility] [id number] [address] [place] [id number] Oct, Mood disorder F39 ; Attentio n to urostomy Z43.6 ; Chronic pain syndrome G89.4 and Polyneuropathy G62.9 [facility] [address] [id number] [address] [place] [id number] Sep, Polyneuropathy G62.9 [facility] [address] [facility] [id number] [address] [place] [id number] Sep, [facility] [address] [facility] [id number] [address] [place] [id number] Sep, Polyneuropathy G62.9 [facility] [address] [facility] [id number] [address] [place] [id number] Aug, Polyneuropathy G62.9 [facility] [address] [id number] [address] [place] [id number] Aug, Malignant neoplasm of colon, unspecified part of colon C18.9 and Polyneuropathy G62.9 [facility] [address] [facility] [id number] [address] [place] [id number] Aug, Neuropathy G62.9 and Polyneu ropathy G62.9 [facility] [address] [facility] [id number] [address] [place] [id number] Jul, Encounter for drug screening Z02.83 [facility] [address] [facility] [id number] [address] [place] [id number] Jul, Polyneuropathy G62.9 [facility] [address] [facility] [id number] [address] [place] [id number] Jul, [facility] [address] [facility] [id number] [address] [place] [id number] Jul, Neuropathy G62.9 and Anxiety F41.9 [facility] [address] [facility] [id number] [address] [place] [id number] Jul, [facility] [address] [facility] [id number] [address] [place] [id number] Jul, [facility] [address] [facility] [id number] [address] [place] [id number] Jul, [facility] [address] [facility] [id number] [address] [place] [id number] Jul, Polyneuropathy G62.9 [facility] [address] [facility] [id number] [address] [place] [id number] Jul, [facility] [address] [facility] [id number] [address] [place] [id number] Jun, [facility] [address] [facility] [id number] [address] [place] [id number] Jun, [facility] [address] [facility] [id number] [address] [place] [id number] Jun, [facility] [address] [id number] [place] [address] Jun, Encounter for dental examina tion Z01.20 [facility] [address] [facility] [id number] [address] [place] [id number] Jun, Polyneuropathy G62.9 and Anx iety F41.9 [facility] [address] [facility] [id number] [address] [place] [id number] Jun, [facility] [address] [id number] [place] [address] May, Dental examination Z01.20 [facility] [address] [facility] [id number] [address] [place] [id number] May, Polyneuropathy G62.9 [facility] [address] [facility] [id number] [address] [place] [id number] Apr, Polyneuropathy G62.9 [facility] [address] [facility] [id number] [address] [place] [id number] Apr, Polyneuropathy G62.9 [facility] [address] [facility] [id number] [address] [place] [id number] Apr, Hypertension, benign I10 ; P olyneuropathy G62.9 and Anxiety F41.9 [facility] [address] [facility] [id number] [address] [place] [id number] Apr, Primary insomnia F51.01 and Polyneuropathy G62.9 [facility] [address] [facility] [id number] [address] [place] [id number] Apr, Primary insomnia F51.01 and Polyneuropathy G62.9 [facility] [address] [facility] [id number] [address] [place] [id number] Mar, Primary insomnia F51.01 [facility] [address] [facility] [id number] [address] [place] [id number] Mar, [facility] [address] [id number] [address] [place] [address], [place] [address] Mar, Polyneuropathy G62.9 [facility] [address] [id number] [address] [place] [address], [place] [address] Feb, Primary insomnia F51.01 [facility] [address] [id number] [address] [place] [address], [place] [address] Feb, [facility] [address] [id number] [address] [place] [address], [place] [address] Feb, [facility] [address] [id number] [address] [place] [address], [place] [address] Feb, Polyneuropathy G62.9 [facility] [address] [id number] [address] [place] [address], [place] [address] Feb, Primary insomnia F51.01 [facility] [address] [id number] [address] [place] [address], [place] [address] Jan, [facility] [address] [id number] [address] [place] [address], [place] [address] Jan, [facility] [address] [id number] [address] [place] [address], [place] [address] Dec, [facility] [address] [id number] [address] [place] [phone] Dec, Primary insomnia F51.01 [facility] [address] [id number] [address] [place] [address], [place] [address] Dec, Primary insomnia F51.01 [facility] [address] [id number] [address] [place] [address], [place] [address] Dec, [facility] [address] [id number] [address] [place] [phone] Dec, [facility] [address] [id number] [address] [place] [id number] Dec, [facility] [address] [id number] [address] [place] [id number] Dec, [facility] [address] [facility] [id number] [address] [place] [id number] November, Primary insomnia F51.01 and Polyneuropathy G62.9 [facility] [address] [id number] [address] [place] [id number] November, [facility] [address] [id number] [address] [place] [id number] November, Abdominal pain, left lower q uadrant R10.32 [facility] [address] [facility] [id number] [address] [place] [id number] November, [facility] [address] [facility] [id number] [address] [place] [id number] Oct, [facility] [address] [facility] [id number] [address] [place] [id number] Oct, Abdominal pain, left lower q uadrant R10.32 ; 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 and Neuropathy G62.9 [facility] [address] [facility] [id number] [address] [place] [id number] Oct, [facility] [address] [facility] [id number] [address] [place] [id number] Sep, [facility] [id number] [place] [id number] Sep, [facility] [address] [facility] [id number] [address] [place] [id number] Sep, [facility] [address] [facility] [id number] [address] [place] [phone] Aug, [facility] [address] [facility] [id number] [address] [place] [id number] Aug, [facility] [address] [facility] [id number] [address] [place] [id number] Aug, Abdominal pain, left lower q uadrant R10.32 ; Neuropathy G62.9 and Anxiety F41.9 [facility] [id number] [place] [address] Jul, [facility] [address] [id number] [address] [place] [id number] Jul, [facility] [address] [id number] [address] [place] [id number] Jul, [facility] [address] [id number] [address] [place] [phone] Jul, [facility] [address] [id number] [address] [place] [id number] Jul, [facility] [address] [id number] [address] [place] [id number] Jun, [facility] [address] [id number] [address] [place] [phone] May, [facility] [address] [id number] [address] [place] [phone] May, [facility] [address] [id number] [address] [place] [id number] Apr, [facility] [address] [id number] [address] [place] [id number] Apr, Muscle spasms of both lower extremities M62.838 and Cellulitis, unspecified cellulitis site L03.90 [facility] [address] [id number] [address] [place] [id number] Apr, [facility] [address] [id number] [address] [place] [id number] Mar, Generalized abdominal pain R 10.84 [facility] [address] [id number] [address] [place] [id number] Mar, [facility] [address] [id number] [address] [place] [id number] 14 Mar, 2016 [facility] [address] [id number] [address] [place] [id number] 14 Mar, 2016 [facility] [address] [id number] [address] [place] [id number] 13 Mar, 2016 [facility] [address] [id number] [address] [place] [id number] 12 Mar, 2016 [facility] [address] [id number] [address] [place] [id number] 09 Mar, 2016 [facility] [address] [id number] [address] [place] [id number] 06 Mar, 2016 [facility] [address] [id number] [address] [place] [id number] Feb, Other specified diseases of anus and rectum K62.89 [facility] [address] [id number] [address] [place] [id number] Feb, [facility] [address] [id number] [address] [place] [id number] Feb, Dizziness R42 [facility] [address] [id number] [address] [place] [id number] Feb, [facility] [address] [id number] [address] [place] [id number] Jan, Polyneuropathy G62.9 [facility] [address] [id number] [address] [place] [id number] Jan, Other specified diseases of anus and rectum K62.89 [facility] [address] [id number] [address] [place] [phone] Jan, [facility] [address] [id number] [address] [place] [id number] Jan, [facility] [address] [id number] [address] [place] [id number] Jan, [facility] [address] [id number] [address] [place] [address], [place] [id number] Jan, Dizziness R42 [facility] [address] [id number] [address] [place] [address], [place] [id number] Dec, [facility] [address] [id number] [address] [place] [address], [place] [id number] Dec, [facility] [address] [id number] [address] [place] [address], [place] [id number] Dec, [facility] [address] [id number] [address] [place] [address], [place] [id number] Dec, Dizziness R42 [facility] [address] [id number] [address] [place] [address], [place] [id number] November, [facility] [address] [id number] [address] [place] [address], [place] [id number] Oct, [facility] [address] [id number] [address] [place] [address], [place] [id number] Oct, [facility] [address] [id number] [address] [place] [address], [place] [id number] Oct, [facility] [address] [id number] [address] [place] [address], [place] [id number] Oct, [facility] [address] [id number] [address] [place] [address], [place] [id number] Sep, [facility] [address] [id number] [address] [place] [address], [place] [address] Sep, Primary insomnia F51.01 [facility] [address] [id number] [address] [place] [address], [place] [address] Sep, Primary insomnia F51.01 [facility] [address] [id number] [address] [place] [address], [place] [address] Sep, [facility] [address] [id number] [address] [place] [address], [place] [address] Aug, [facility] [address] [address] Aug, [facility] [address] [address] Aug, Primary insomnia F51.01 ; Mo od disorder F39 ; Nausea and vomiting, unspecified intactability, vomiting of unspecified type R11.2 and Diarrhea R19.7 [facility] [address] [address] Aug, [facility] [address] [address] Aug, Folliculitis L73.9 [facility] [address] [address] Aug, [facility] [address] [address] Aug, [facility] [address] [address] Jul, Folliculitis L73.9 [facility] [address] [address] Jul, [facility] [address] [address] Jun, Folliculitis L73.9 [facility] [address] [address] Jun, [facility] [address] [address] May, Polyneuropathy G62.9 [facility] [address] [address] May, Other specified diseases of anus and rectum K62.89 [facility] [address] [address] May, [facility] [address] [id number] [address] [place] [address] May, Primary insomnia F51.01 [facility] [address] [facility] [id number] [address] [place] [address] May, [facility] [address] [facility] [id number] [address] [place] [address] May, [facility] [address] [id number] [address] [place] [address] Apr, Other specified diseases of anus and rectum K62.89 ; Chronic fatigue R53.82 ; Urinary tract infection, site not specified N39.0 and Enterococcus as the cause of diseases classified elsewhere B95.2 [facility] [address] [facility] [id number] [address] [place] [id number] 16 Apr, 2015 [facility] [address] [facility] [id number] [address] [place] [id number] 15 Apr, 2015 [facility] [address] [facility] [id number] [address] [place] [id number] 14 Apr, 2015 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 [facility] [address] [facility] [id number] [address] [place] [id number] 05 Apr, 2015 [facility] [address] [facility] [id number] [address] [place] [id number] 26 Mar, 2015 [facility] [address] [facility] [id number] [address] [place] [id number] 23 Mar, 2015 [facility] [address] [id number] [address] [place] [id number] 17 Mar, 2015 [facility] [address] [facility] [id number] [address] [place] [id number] 14 Mar, 2015 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 [facility] [address] [facility] [id number] [address] [place] [id number] 12 Mar, 2015 [facility] [address] [facility] [id number] [address] [place] [address] Mar, [facility] [address] [id number] [address] [place] [id number] Mar, [facility] [address] [id number] [address] [place] [id number] Mar, [facility] [address] [id number] [address] [place] [id number] Feb, [facility] [address] [id number] [address] [place] [id number] Feb, [facility] [address] [id number] [address] [place] [id number] Feb, [facility] [address] [id number] [address] [place] [id number] Jan, [facility] [address] [id number] [address] [place] [id number] Jan, Nausea 787.02 and Neuropathy 355.9 [facility] [place] [address] [id number] [address] [place] [id number] Jan, [facility] [address] [id number] [address] [place] [id number] Jan, [facility] [address] [id number] [address] [place] [id number] Jan, [facility] [address] [id number] [address] [place] [id number] Jan, Dental examination V72.2 [facility] [address] [id number] [address] [place] [id number] Jan, [facility] [address] [id number] [address] [place] [id number] Dec, [facility] [address] [id number] [address] [place] [id number] Dec, [facility] [address] [id number] [address] [place] [id number] Dec, Neuropathy 355.9 [facility] [address] [id number] [address] [place] [address], [place] [address] November, [facility] [address] [id number] [address] [place] [address], [place] [address] November, [facility] [address] [id number] [address] [place] [address], [place] [address] November, [facility] [address] [id number] [address] [place] [address], [place] [address] Oct, [facility] [address] [id number] [address] [place] [address], [place] [address] Oct, [facility] [address] [id number] [address] [place] [address], [place] [address] Sep, [facility] [address] [id number] [address] [place] [address], [place] [address] Sep, [facility] [address] [id number] [address] [place] [address], [place] [address] Sep, [facility] [address] [id number] [address] [place] [address], [place] [address] Sep, [facility] [address] [id number] [address] [place] [address], [place] [address] Sep, [facility] [address] [id number] [address] [place] [address], [place] [address] Sep, [facility] [address] [id number] [address] [place] [address], [place] [address] Sep, [facility] [address] [id number] [address] [place] [address], [place] [address] Sep, [facility] [address] [id number] [address] [place] [address], [place] [address] Aug, [facility] [address] [id number] [address] [place] [address], [place] [address] Aug, [facility] [address] [id number] [address] [place] [address], [place] [address] Aug, 2014 [facility] [address] [id number] [address] [place] [address], [place] [address] Aug, 2014 [facility] [address] [id number] [address] [place] [address], [place] [address] Aug, 2014 [facility] [address] [id number] [address] [place] [address], [place] [address] Aug, 2014 [facility] [address] [id number] [address] [place] [address], [place] [address] Aug, 2014 [facility] [address] [id number] [address] [place] [address], [place] [address] Aug, 2014 [facility] [address] [id number] [address] [place] [address], [place] [address] Jul, [facility] [address] [id number] [address] [place] [address], [place] [address] Jul, [facility] [address] [id number] [address] [place] [address], [place] [address] Jun, [facility] [address] [id number] [address] [place] [address], [place] [address] Jun, [facility] [address] [id number] [address] [place] [address], [place] [address] Jun, [facility] [address] [id number] [address] [place] [address], [place] [address] Jun, [facility] [address] [id number] [address] [place] [address], [place] [address] Jun, [facility] [address] [id number] [address] [place] [address], [place] [address] Jun, [facility] [address] [id number] [address] [place] [address], [place] [address] Jun, [facility] [address] [id number] [address] [place] [address], [place] [address] Jun, [facility] [address] [id number] [address] [place] [address], [place] [address] Jun, [facility] [address] [id number] [address] [place] [address], [place] [address] Jun, [facility] [address] [id number] [address] [place] [address], [place] [address] Jun, [facility] [address] [id number] [address] [place] [address], [place] [address] May, [facility] [address] [id number] [address] [place] [address], [place] [address] May, [facility] [address] [id number] [address] [place] [address], [place] [address] May, [facility] [address] [id number] [address] [place] [address], [place] [address] May, [facility] [address] [id number] [address] [place] [address], [place] [address] May, [facility] [address] [id number] [address] [place] [address], [place] [address] May, [facility] [address] [id number] [address] [place] [address], [place] [address] May, [facility] [address] [id number] [address] [place] [address], [place] [address] May, [facility] [address] [id number] [address] [place] [address], [place] [address] May, [facility] [address] [id number] [address] [place] [address], [place] [address] Apr, [facility] [address] [id number] [address] [place] [address], [place] [address] Apr, [facility] [address] [id number] [address] [place] [address], [place] [address] Apr, [facility] [address] [id number] [facility] [place] [address] Apr, [facility] [address] [id number] [address] [place] [address], [place] [address] Apr, [facility] [address] [id number] [address] [place] [address], [place] [address] Mar, [facility] [address] [id number] [address] [place] [address], [place] [address] Mar, [facility] [address] [id number] [address] [place] [address], [place] [address] Feb, [facility] [address] [id number] [address] [place] [address], [place] [address] Feb, [facility] [address] [id number] [address] [place] [address], [place] [address] Feb, [facility] [address] [id number] [address] [place] [address], [place] [address] Feb, [facility] [address] [id number] [address] [place] [address], [place] [address] Feb, [facility] [address] [id number] [address] [place] [address], [place] [address] Feb, [facility] [address] [id number] [address] [place] [address], [place] [address] Jan, [facility] [address] [id number] [address] [place] [address], [place] [address] Jan, [facility] [address] [id number] [address] [place] [address], [place] [address] Jan, [facility] [address] [id number] [address] [place] [address], [place] [address] Jan, [facility] [address] [id number] [address] [place] [address], [place] [address] Jan, [facility] [address] [id number] [address] [place] [address], [place] [address] Jan, [facility] [address] [id number] [facility] [place] [address] Jan, [facility] [address] [id number] [address] [place] [address], [place] [address] Jan, [facility] [address] [id number] [facility] [place] [address] Jan, [facility] [address] [id number] [address] [place] [address], [place] [address] Jan, [facility] [address] [id number] [address] [place] [address], [place] [address] Jan, [facility] [address] [id number] [address] [place] [address], [place] [address] Dec, [facility] [address] [id number] [address] [place] [address], [place] [address] Dec, [facility] [address] [id number] [address] [place] [address], [place] [address] Dec, [facility] [address] [id number] [address] [place] [address], [place] [address] Dec, [facility] [address] [id number] [address] [place] [address], [place] [address] Dec, [facility] [address] [id number] [address] [place] [address], [place] [address] Dec, [facility] [address] [id number] [address] [place] [address], [place] [address] November, [facility] [address] [id number] [address] [place] [address], [place] [address] November, [facility] [address] [id number] [address] [place] [address], [place] [address] November, [facility] [address] [id number] [address] [place] [address], [place] [address] November, [facility] [address] [id number] [address] [place] [address], [place] [address] November, [facility] [address] [id number] [address] [place] [address], [place] [address] November, [facility] [address] [id number] [address] [place] [address], [place] [address] Oct, [facility] [address] [id number] [address] [place] [address], [place] [address] Oct, [facility] [address] [id number] [address] [place] [address], [place] [address] Oct, [facility] [address] [id number] [address] [place] [address], [place] [address] Oct, [facility] [address] [id number] [address] [place] [address], [place] [address] Sep, [facility] [address] [id number] [address] [place] [address], [place] [address] Sep, [facility] [address] [id number] [address] [place] [address], [place] [address] Sep, [facility] [address] [id number] [address] [place] [address], [place] [address] Sep, [facility] [address] [id number] [address] [place] [address], [place] [address] Sep, [facility] [address] [id number] [address] [place] [address], [place] [address] Aug, [facility] [address] [id number] [address] [place] [address], [place] [address] Aug, [facility] [address] [id number] [address] [place] [address], [place] [address] Aug, [facility] [address] [id number] [address] [place] [address], [place] [address] Aug, [facility] [address] [id number] [address] [place] [address], [place] [address] 14 Aug, 2013 [facility] [id number] May, [facility] [address] [id number] [address] [place] [address], [place] [address] May, [facility] [address] [id number] [address] [place] [address], [place] [address] May, [facility] [address] [id number] [address] [place] [address], [place] [address] May, [facility] [address] [id number] [address] [place] [address], [place] [address] May, [facility] [address] [id number] [address] [place] [address], [place] [address] Apr, [facility] [address] [id number] [address] [place] [address], [place] [address] Apr, [facility] [address] [id number] [address] [place] [address], [place] [address] Apr, [facility] [address] [id number] [address] [place] [address], [place] [address] Apr, [facility] [address] [id number] [address] [place] [address], [place] [address] Apr, [facility] [address] [id number] [address] [place] [address], [place] [address] Apr, [facility] [address] [id number] [address] [place] [address], [place] [address] Apr, [facility] [address] [id number] [address] [place] [address], [place] [address] 28 Mar, 2013 [facility] [address] [id number] [address] [place] [address], [place] [address] Mar, [facility] [address] [id number] [address] [place] [address], [place] [address] 24 Mar, 2013 [facility] [address] [id number] [address] [place] [address], [place] [address] 16 Mar, 2013 [facility] [address] [id number] [address] [place] [address], [place] [address] Mar, [facility] [address] [id number] [address] [place] [address], [place] [address] Mar, [facility] [address] [id number] [address] [place] [address], [place] [address] Feb, [facility] [address] [id number] [address] [place] [address], [place] [address] Feb, [facility] [address] [id number] [address] [place] [address], [place] [address] Feb, [facility] [address] [id number] [address] [place] [address], [place] [address] Feb, [facility] [address] [id number] [address] [place] [address], [place] [address] Feb, [facility] [address] [id number] [address] [place] [address], [place] [address] Feb, [facility] [address] [id number] [address] [place] [address], [place] [address] Jan, [facility] [address] [id number] [address] [place] [address], [place] [address] Dec, [facility] [address] [id number] [address] [place] [address], [place] [address] Dec, [facility] [address] [id number] [address] [place] [address], [place] [address] Dec, [facility] [address] [id number] [address] [place] [address], [place] [address] Dec, [facility] [address] [id number] [address] [place] [address], [place] [address] Dec, [facility] [address] [id number] [address] [place] [address], [place] [address] Dec, [facility] [address] [id number] [address] [place] [address], [place] [address] 17 Dec, 2012 [facility] [place] [address] [id number] [address] [place] [address], [place] [address] Dec, [facility] [place] [address] [id number] [address] [place] [address], [place] [address] Dec, [facility] [place] [address] [id number] [address] [place] [address], [place] [address] November, [facility] [place] [address] [id number] [address] [place] [address], [place] [address] November, [facility] [place] [address] [id number] [address] [place] [address], [place] [address] Oct, [facility] [place] [address] [id number] [address] [place] [address], [place] [address] Sep, [facility] [address] [id number] [address] [place] [address], [place] [address] Sep, [facility] [address] [id number] [address] [place] [address], [place] [address] 15 Sep, 2012 [facility] [place] [address] [id number] [address] [place] [address], [place] [address] Sep, [facility] [address] [id number] [address] [place] [address], [place] [address] Aug, [facility] [address] [id number] [address] [place] [address], [place] [address] Aug, [facility] [address] [id number] [address] [place] [address], [place] [address] Jul, [facility] [address] [id number] [address] [place] [address], [place] [address] Jul, [facility] [address] [id number] [address] [place] [address], [place] [address] Jul, [facility] [address] [id number] [address] [place] [address], [place] [address] Sep, [facility] [address] [facility] [id number] [address] [place] [id number] Sep, [facility] [address] [facility] [id number] [address] [place] [address] Sep, IMMUNIZATIONS No Known Immunizations SOCIAL HISTORY [...] bowel obstruction, Dehydration -[facility] 01/01/17 Hospitalization History [facility], [place]- UTI/Sepsis 01/18/2018 Hospitalization History [facility] - infection 4 days 05/2018
--- OUTSIDE RECORDS SUMMARY | 2020-01-14 22:59 | XMS REPORT ---
Author Author Melvin BENTLEY Organization [facility] Address [address] [place] [address] Care Team Providers Care Lockstitch Binder Name Role Phone LINDA BENTLEY Unavailable PROBLEMS Type Condition ICD9-CM Code FMI35-TE Code Onset Dates Condition S tatus SNOMED Code Problem Incontinence of feces, unspecified fecal incontinence type R15.9 Active 71060377 Problem Primary insomnia F51.01 Active 193 129509 Problem Hydronephrosis with ureteral stricture, not else where classified N13.1 Active 10265090 Problem Chronic fatigue, unspecified R53.82 A ctive 716942826 Problem Hypertension, benign I10 Active 43857703 Problem Mood disorder F39 Active 247910 05 Problem Neuropathy G62.9 Active 107799768 Problem Chronic pain syndrome G89.4 Active 483036749 Problem Abdominal pain, left lower quadrant R10.32 Active 189502433 Problem 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 Active 424760260 Problem 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 842242421 Problem Anxiety F41.9 Active 08587046 Problem Polyneuropathy G62.9 Active 10823 000 Problem Malignant neoplasm of colon, unspecified part of colon C18.9 Active 381327953 Problem Attention to urostomy Z43.6 Active 194681526 ALLERGIES No Information ENCOUNTERS Encounter Location Date Diagnosis [facility] [address] [facility] [place] [place] [id number] [address] [place] [id number] Dec, [facility] [address] [facility] [place] [id number] [address] [place] [id number] November, Attention to urostomy Z43.6 [facility] [address] [facility] [place] [id number] [address] [place] [id number] 16 Oct, 2019 Attention to urostomy Z43.6 and Hypertension, benign I10 [facility] [address] [id number] [address] [place] [id number] 15 Oct, 2019 [facility] [address] [id number] [address] [place] [address] Sep, Neuropathy G62.9 ; Anxiety F 41.9 and Encounter for Medicare annual wellness exam Z00.00 [facility] [address] [id number] [address] [place] [id number] 12 Aug, 2019 Anxiety F41.9 ; Neuropathy G 62.9 and Encounter for Medicare annual wellness exam Z00.00 [facility] [address] [id number] [address] [place] [id number] Jul, [place] [address] [id number] [address] [place] [id number] Jul, Primary insomnia F51.01 and Anxiety F41.9 [place] [address] [id number] [address] [place] [id number] Jul, Primary insomnia F51.01 ; Ne uropathy G62.9 and Encounter for Medicare annual wellness exam Z00.00 [place] [address] [id number] [address] [place] [id number] 23 Jun, 2019 Neuropathy G62.9 and Encount er for Medicare annual wellness exam Z00.00 [facility] [address] [id number] [address] [place] [id number] Jun, Primary insomnia F51.01 [place] [address] [id number] [address] [place] [address] Jun, Primary insomnia F51.01 ; En counter for Medicare annual wellness exam Z00.00 and Neuropathy G62.9 [place] [address] [id number] [address] [place] [address] Jun, Malignant neoplasm of colon, unspecified part of colon C18.9 and Chronic fatigue, unspecified R53.82 [place] [address] [id number] [address] [place] [address] May, Neuropathy G62.9 and Encount er for Medicare annual wellness exam Z00.00 [facility] [address] [id number] [address] [place] [id number] 15 May, 2019 Primary insomnia F51.01 [facility] [address] [id number] [address] [place] [id number] 01 May, 2019 Neuropathy G62.9 and Anxiety F41.9 [facility] [address] [id number] [address] [place] [id number] 30 Apr, 2019 Encounter for Medicare annua l wellness exam Z00.00 [facility] [address] [id number] [address] [place] [id number] 16 Apr, 2019 Neuropathy G62.9 and Encount er for Medicare annual wellness exam Z00.00 [facility] [address] [id number] [address] [place] [id number] 26 Mar, 2019 Neuropathy G62.9 and Primary insomnia F51.01 [facility] [address] [id number] [address] [place] [id number] 18 Mar, 2019 [facility] [address] [id number] [address] [place] [address] Feb, Primary insomnia F51.01 ; Ne uropathy G62.9 and Encounter for Medicare annual wellness exam Z00.00 [facility] [address] [id number] [address] [place] [id number] Feb, Neuropathy G62.9 and Encount er for Medicare annual wellness exam Z00.00 [facility] [address] [id number] [address] [place] [id number] Feb, Primary insomnia F51.01 and High risk medication use Z79.899 [facility] [address] [id number] [address] [place] [id number] Jan, [facility] [address] [id number] [address] [place] [address] Jan, Neuropathy G62.9 [facility] [address] [id number] [address] [place] [address] Dec, [facility] [address] [id number] [address] [place] [id number] Dec, Encounter for Medicare annua l wellness exam Z00.00 and Neuropathy G62.9 [facility] [address] [id number] [address] [place] [id number] November, [facility] [address] [id number] [address] [place] [id number] November, Encounter for Medicare annua l wellness exam Z00.00 ; 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 ; Mood disorder F39 ; Chronic fatigue, unspecified R53.82 and Neuropathy G62.9 [facility] [address] [id number] [address] [place] [address] November, Neuropathy G62.9 [facility] [address] [id number] [address] [place] [address] Oct, Neuropathy G62.9 [facility] [address] [id number] [address] [place] [id number] Oct, Hypertension, benign I10 and Anxiety F41.9 [facility] [address] [id number] [address] [place] [id number] Oct, [facility] [address] [id number] [address] [place] [address] Oct, [facility] [address] [id number] [address] [place] [address] Oct, [facility] [address] [id number] [address] [place] [address] Oct, Neuropathy G62.9 [facility] [address] [id number] [address] [place] [address] Sep, [facility] [address] [id number] [address] [place] [address] Sep, Neuropathy G62.9 [facility] [address] [id number] [address] [place] [address] Sep, [facility] [address] [id number] [address] [place] [address] Sep, H/O malignant carcinoid tumo r of 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 and Primary insomnia F51.01 [facility] [address] [id number] [address] [place] [id number] Aug, [facility] [address] [id number] [address] [place] [address] Aug, Neuropathy G62.9 [facility] [address] [id number] [address] [place] [address] Aug, [facility] [address] [facility] [place] [id number] [address] [place] [id number] Jul, Non-recurrent acute suppurat francine otitis media of left ear without spontaneous rupture of tympanic membrane H66.002 [facility] [address] [id number] [address] [place] [address] Jul, Neuropathy G62.9 [facility] [address] [id number] [address] [place] [phone] Jun, [facility] [address] [facility] [place] [id number] [address] [place] [address] Jun, [facility] [address] [id number] [address] [place] [id number] Jun, Neuropathy G62.9 [facility] [address] [id number] [address] [place] [address] Jun, [facility] [address] [id number] [address] [place] [id number] Jun, [facility] [address] [facility] [place] [id number] [address] [place] [address] Jun, Lumbar neuritis M54.16 [facility] [address] [id number] 30 May, 2018 Neuropathy G62.9 [facility] [address] [address] May, [facility] [address] [address] 05 May, 2018 Neuropathy G62.9 and Hyperte nsion, benign I10 [place] [address] [address] Apr, Polyneuropathy G62.9 and Hyp ertension, benign I10 [place] [address] [address] 17 Mar, 2018 Chronic pain syndrome G89.4 and Hypertension, benign I10 [place] [address] [address] Mar, Polyneuropathy G62.9 and Hyp ertension, benign I10 [facility] [address] [address] Feb, [facility] [address] [address] Feb, Hypertension, benign I10 [place] [address] [address] Feb, Hypertension, benign I10 ; P olyneuropathy G62.9 and Primary insomnia F51.01 [facility] [address] [address] Jan, Hypertension, benign I10 and Polyneuropathy G62.9 [facility] [address] [address] Jan, Hypertension, benign I10 and Neuropathy G62.9 [facility] [address] [address] Jan, [facility] [address] [place] [address] Dec, Polyneuropathy G62.9 [facility] [address] [id number] [address] [place] [address] Dec, Mood disorder F39 [facility] [address] [id number] [address] [place] [id number] November, Polyneuropathy G62.9 [facility] [address] [facility] [place] [id number] [address] [place] [address] November, Medicare annual wellness vis it, initial Z00.00 [facility] [address] [facility] [place] [id number] [address] [place] [id number] November, Mood disorder F39 [facility] [address] [facility] [place] [id number] [address] [place] [id number] Oct, Polyneuropathy G62.9 [facility] [address] [facility] [place] [id number] [address] [place] [address] Oct, [facility] [address] [id number] [address] [place] [address] Oct, [facility] [address] [facility] [place] [id number] [address] [place] [id number] Oct, Mood disorder F39 ; Attentio n to urostomy Z43.6 ; Chronic pain syndrome G89.4 and Polyneuropathy G62.9 [facility] [address] [id number] [address] [place] [address] Sep, Polyneuropathy G62.9 [facility] [address] [facility] [place] [id number] [address] [place] [id number] Sep, [facility] [address] [facility] [place] [id number] [address] [place] [address] Sep, Polyneuropathy G62.9 [facility] [address] [facility] [place] [id number] [address] [place] [address] Aug, Polyneuropathy G62.9 [facility] [address] [id number] [address] [place] [id number] Aug, Malignant neoplasm of colon, unspecified part of colon C18.9 and Polyneuropathy G62.9 [facility] [address] [facility] [place] [id number] [address] [place] [address] Aug, Neuropathy G62.9 and Polyneu ropathy G62.9 [facility] [address] [facility] [place] [id number] [address] [place] [id number] Jul, Encounter for drug screening Z02.83 [facility] [address] [facility] [place] [id number] [address] [place] [address] Jul, Polyneuropathy G62.9 [facility] [address] [facility] [place] [id number] [address] [place] [address] Jul, [facility] [address] [facility] [place] [id number] [address] [place] [address] Jul, Neuropathy G62.9 and Anxiety F41.9 [facility] [address] [facility] [place] [id number] [address] [place] [id number] Jul, [facility] [address] [facility] [place] [id number] [address] [place] [address] Jul, [facility] [address] [facility] [place] [id number] [address] [place] [id number] Jul, [facility] [address] [facility] [place] [id number] [address] [place] [address] Jul, Polyneuropathy G62.9 [facility] [address] [facility] [place] [id number] [address] [place] [address] Jul, [facility] [address] [facility] [place] [id number] [address] [place] [id number] Jun, [facility] [address] [facility] [place] [id number] [address] [place] [address] Jun, [facility] [address] [facility] [place] [id number] [address] [place] [address] Jun, [facility] [address] [id number] [place] [address] Jun, Encounter for dental examina tion Z01.20 [facility] [address] [facility] [place] [id number] [address] [place] [address] Jun, Polyneuropathy G62.9 and Anx iety F41.9 [facility] [address] [facility] [place] [id number] [address] [place] [address] Jun, [facility] [address] [id number] [address] [address] May, Dental examination Z01.20 [facility] [address] [facility] [place] [id number] [address] [place] [address] May, Polyneuropathy G62.9 [facility] [address] [facility] [place] [id number] [address] [place] [address] Apr, Polyneuropathy G62.9 [facility] [address] [facility] [place] [id number] [address] [place] [address] Apr, Polyneuropathy G62.9 [facility] [address] [facility] [place] [id number] [address] [place] [id number] Apr, Hypertension, benign I10 ; P olyneuropathy G62.9 and Anxiety F41.9 [facility] [address] [facility] [place] [id number] [address] [place] [address] Apr, Primary insomnia F51.01 and Polyneuropathy G62.9 [facility] [address] [facility] [place] [id number] [address] [place] [id number] Apr, Primary insomnia F51.01 and Polyneuropathy G62.9 [facility] [address] [facility] [place] [id number] [address] [place] [address] Mar, Primary insomnia F51.01 [facility] [address] [facility] [place] [id number] [address] [place] [address] Mar, [facility] [address] [id number] [address] [place] [address], [place] [id number] Mar, Polyneuropathy G62.9 [facility] [address] [id number] [address] [place] [address], [place] [id number] Feb, Primary insomnia F51.01 [facility] [address] [id number] [address] [place] [address], [place] [id number] Feb, [facility] [address] [id number] [address] [place] [address], [place] [id number] Feb, [facility] [address] [id number] [address] [place] [address], [place] [id number] Feb, Polyneuropathy G62.9 [facility] [address] [id number] [address] [place] [address], [place] [id number] Feb, Primary insomnia F51.01 [facility] [address] [id number] [address] [place] [address], [place] [id number] Jan, [facility] [address] [id number] [address] [place] [address], [place] [id number] Jan, [facility] [address] [id number] [address] [place] [address], [place] [id number] Dec, [facility] [address] [id number] [address] [place] [address] Dec, Primary insomnia F51.01 [facility] [address] [id number] [address] [place] [address], [place] [id number] Dec, Primary insomnia F51.01 [facility] [address] [id number] [address] [place] [address], [place] [id number] Dec, [facility] [address] [id number] [address] [place] [phone] Dec, [facility] [address] [id number] [address] [place] [id number] Dec, [facility] [address] [id number] [address] [place] [id number] Dec, [facility] [address] [facility] [place] [id number] [address] [place] [address] November, Primary insomnia F51.01 and Polyneuropathy G62.9 [facility] [address] [id number] [address] [place] [id number] November, [facility] [address] [id number] [address] [place] [id number] November, Abdominal pain, left lower q uadrant R10.32 [facility] [address] [facility] [place] [place] [id number] [address] [place] [id number] November, [facility] [address] [facility] [place] [place] [id number] [address] [place] [id number] Oct, [facility] [address] [facility] [place] [id number] [address] [place] [address] Oct, Abdominal pain, left lower q uadrant R10.32 ; 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 and Neuropathy G62.9 [facility] [address] [facility] [place] [place] [id number] [address] [place] [id number] Oct, [facility] [address] [facility] [place] [id number] [address] [place] [id number] Sep, [facility] [id number] [place] [id number] Sep, [facility] [address] [facility] [place] [id number] [address] [place] [id number] Sep, [facility] [address] [facility] [place] [id number] [address] [place] [id number] Aug, [facility] [address] [facility] [place] [id number] [address] [place] [phone] Aug, [facility] [address] [facility] [place] [id number] [address] [place] [id number] Aug, Abdominal pain, left lower q uadrant R10.32 ; Neuropathy G62.9 and Anxiety F41.9 [facility] [id number] [place] [id number] Jul, [facility] [address] [id number] [address] [place] [id number] Jul, [facility] [address] [id number] [address] [place] [id number] Jul, [facility] [address] [id number] [address] [place] [id number] Jul, [facility] [address] [id number] [address] [place] [id number] Jul, [facility] [address] [id number] [address] [place] [id number] Jun, [facility] [address] [id number] [address] [place] [id number] May, [facility] [address] [id number] [address] [place] [id number] May, [facility] [address] [id number] [address] [place] [id number] Apr, [facility] [address] [id number] [address] [place] [id number] Apr, Muscle spasms of both lower extremities M62.838 and Cellulitis, unspecified cellulitis site L03.90 [facility] [address] [id number] [address] [place] [id number] Apr, [facility] [address] [id number] [address] [place] [id number] Mar, Generalized abdominal pain R 10.84 [facility] [address] [id number] [address] [place] [id number] Mar, [facility] [address] [id number] [address] [place] [id number] 14 Mar, 2016 [facility] [address] [id number] [address] [place] [id number] 14 Mar, 2016 [facility] [address] [id number] [address] [place] [id number] 13 Mar, 2016 [facility] [address] [id number] [address] [place] [id number] 12 Mar, 2016 [facility] [address] [id number] [address] [place] [id number] 09 Mar, 2016 [facility] [address] [id number] [address] [place] [id number] 06 Mar, 2016 [facility] [address] [id number] [address] [place] [id number] Feb, Other specified diseases of anus and rectum K62.89 [facility] [address] [id number] [address] [place] [id number] Feb, [facility] [address] [id number] [address] [place] [id number] Feb, Dizziness R42 [facility] [facility] [address] [id number] [address] [place] [id number] Feb, [facility] [address] [id number] [address] [place] [id number] Jan, Polyneuropathy G62.9 [facility] [address] [id number] [address] [place] [id number] Jan, Other specified diseases of anus and rectum K62.89 [facility] [address] [id number] [address] [place] [id number] Jan, [facility] [address] [id number] [address] [place] [id number] Jan, [facility] [address] [id number] [address] [place] [id number] Jan, [facility] [address] [id number] [address] [place] [address], [place] [id number] Jan, Dizziness R42 [facility] [address] [id number] [address] [place] [address], [place] [id number] Dec, [facility] [address] [id number] [address] [place] [address], [place] [id number] Dec, [facility] [address] [id number] [address] [place] [address], [place] [id number] Dec, [facility] [address] [id number] [address] [place] [address], [place] [id number] Dec, Dizziness R42 [facility] [address] [id number] [address] [place] [address], [place] [id number] November, [facility] [address] [id number] [address] [place] [address], [place] [id number] Oct, [facility] [address] [id number] [address] [place] [address], [place] [id number] Oct, [facility] [address] [id number] [address] [place] [address], [place] [id number] Oct, [facility] [address] [id number] [address] [place] [address], [place] [id number] Oct, [facility] [address] [id number] [address] [place] [address], [place] [id number] Sep, [facility] [address] [id number] [address] [place] [address], [place] [id number] Sep, Primary insomnia F51.01 [facility] [address] [id number] [address] [place] [address], [place] [id number] Sep, Primary insomnia F51.01 [facility] [address] [id number] [address] [place] [address], [place] [id number] Sep, [facility] [address] [id number] [address] [place] [address], [place] [id number] Aug, [facility] [address] [id number] Aug, [facility] [address] [id number] Aug, Primary insomnia F51.01 ; Mo od disorder F39 ; Nausea and vomiting, unspecified intactability, vomiting of unspecified type R11.2 and Diarrhea R19.7 [facility] [address] [id number] Aug, [facility] [address] [id number] Aug, Folliculitis L73.9 [facility] [address] [id number] Aug, [facility] [address] [id number] Aug, [facility] [address] [id number] Jul, Folliculitis L73.9 [facility] [address] [id number] Jul, [facility] [address] [id number] Jun, Folliculitis L73.9 [facility] [address] [id number] Jun, [facility] [address] [id number] May, Polyneuropathy G62.9 [facility] [address] [id number] May, Other specified diseases of anus and rectum K62.89 [facility] [address] [id number] May, [facility] [address] [id number] [address] [place] [id number] May, Primary insomnia F51.01 [facility] [address] [facility] [id number] [address] [place] [id number] May, [facility] [address] [facility] [id number] [address] [place] [id number] May, [facility] [address] [id number] [address] [place] [id number] Apr, Other specified diseases of anus and rectum K62.89 ; Chronic fatigue R53.82 ; Urinary tract infection, site not specified N39.0 and Enterococcus as the cause of diseases classified elsewhere B95.2 [facility] [address] [facility] [id number] [address] [place] [id number] 16 Apr, 2015 [facility] [address] [facility] [id number] [address] [place] [id number] 15 Apr, 2015 [facility] [address] [facility] [id number] [address] [place] [id number] 14 Apr, 2015 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 [facility] [address] [facility] [id number] [address] [place] [id number] 05 Apr, 2015 [facility] [address] [facility] [id number] [address] [place] [id number] 26 Mar, 2015 [facility] [address] [facility] [id number] [address] [place] [id number] 23 Mar, 2015 [facility] [address] [id number] [address] [place] [id number] 17 Mar, 2015 [facility] [address] [facility] [id number] [address] [place] [id number] 14 Mar, 2015 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 [facility] [address] [facility] [id number] [address] [place] [id number] 12 Mar, 2015 [facility] [address] [facility] [id number] [address] [place] [id number] Mar, [facility] [address] [id number] [address] [place] [id number] Mar, [facility] [address] [id number] [address] [place] [id number] Mar, [facility] [address] [id number] [address] [place] [id number] Feb, [facility] [address] [id number] [address] [place] [phone] Feb, [facility] [address] [id number] [address] [place] [id number] Feb, [facility] [address] [id number] [address] [place] [id number] Jan, [facility] [address] [id number] [address] [place] [id number] Jan, Nausea 787.02 and Neuropathy 355.9 [facility] [address] [id number] [address] [place] [id number] Jan, [facility] [address] [id number] [address] [place] [id number] Jan, [facility] [address] [id number] [address] [place] [id number] Jan, [facility] [address] [id number] [address] [place] [id number] Jan, Dental examination V72.2 [facility] [address] [id number] [address] [place] [id number] Jan, [facility] [address] [id number] [address] [place] [id number] Dec, [facility] [address] [id number] [address] [place] [id number] Dec, [facility] [address] [id number] [address] [place] [id number] Dec, Neuropathy 355.9 [facility] [address] [id number] [address] [place] [address], [place] [id number] November, [facility] [address] [id number] [address] [place] [address], [place] [id number] November, [facility] [address] [id number] [address] [place] [address], [place] [id number] November, [facility] [address] [id number] [address] [place] [address], [place] [id number] Oct, [facility] [address] [id number] [address] [place] [address], [place] [id number] Oct, [facility] [address] [id number] [address] [place] [address], [place] [id number] Sep, [facility] [address] [id number] [address] [place] [address], [place] [id number] Sep, [facility] [address] [id number] [address] [place] [address], [place] [id number] Sep, [facility] [address] [id number] [address] [place] [address], [place] [id number] Sep, [facility] [address] [id number] [address] [place] [address], [place] [id number] Sep, [facility] [address] [id number] [address] [place] [address], [place] [id number] Sep, [facility] [address] [id number] [address] [place] [address], [place] [id number] Sep, [facility] [address] [id number] [address] [place] [address], [place] [id number] Sep, [facility] [address] [id number] [address] [place] [address], [place] [id number] Aug, [facility] [address] [id number] [address] [place] [address], [place] [id number] Aug, [facility] [address] [id number] [address] [place] [address], [place] [id number] Aug, 2014 [facility] [address] [id number] [address] [place] [address], [place] [id number] Aug, 2014 [facility] [address] [id number] [address] [place] [address], [place] [id number] Aug, 2014 [facility] [address] [id number] [address] [place] [address], [place] [id number] Aug, 2014 [facility] [address] [id number] [address] [place] [address], [place] [id number] Aug, 2014 [facility] [address] [id number] [address] [place] [address], [place] [id number] Aug, 2014 [facility] [address] [id number] [address] [place] [address], [place] [id number] Jul, [facility] [address] [id number] [address] [place] [address], [place] [id number] Jul, [facility] [address] [id number] [address] [place] [address], [place] [id number] Jun, [facility] [address] [id number] [address] [place] [address], [place] [id number] Jun, [facility] [address] [id number] [address] [place] [address], [place] [id number] Jun, [facility] [address] [id number] [address] [place] [address], [place] [id number] Jun, [facility] [address] [id number] [address] [place] [address], [place] [id number] Jun, [facility] [address] [id number] [address] [place] [address], [place] [id number] Jun, [facility] [address] [id number] [address] [place] [address], [place] [id number] Jun, [facility] [address] [id number] [address] [place] [address], [place] [id number] Jun, [facility] [address] [id number] [address] [place] [address], [place] [id number] Jun, [facility] [address] [id number] [address] [place] [address], [place] [id number] Jun, [facility] [address] [id number] [address] [place] [address], [place] [id number] Jun, [facility] [address] [id number] [address] [place] [address], [place] [id number] May, [facility] [address] [id number] [address] [place] [address], [place] [id number] May, [facility] [address] [id number] [address] [place] [address], [place] [id number] May, [facility] [address] [id number] [address] [place] [address], [place] [id number] May, [facility] [address] [id number] [address] [place] [address], [place] [id number] May, [facility] [address] [id number] [address] [place] [address], [place] [id number] May, [facility] [address] [id number] [address] [place] [address], [place] [id number] May, [facility] [address] [id number] [address] [place] [address], [place] [id number] May, [facility] [address] [id number] [address] [place] [address], [place] [id number] May, [facility] [address] [id number] [address] [place] [address], [place] [id number] Apr, [facility] [address] [id number] [address] [place] [address], [place] [id number] Apr, [facility] [address] [id number] [address] [place] [address], [place] [id number] Apr, [facility] [address] [id number] [facility] [place] [id number] Apr, [facility] [address] [id number] [address] [place] [address], [place] [id number] Apr, [facility] [address] [id number] [address] [place] [address], [place] [id number] Mar, [facility] [address] [id number] [address] [place] [address], [place] [id number] Mar, [facility] [address] [id number] [address] [place] [address], [place] [id number] Feb, [facility] [address] [id number] [address] [place] [address], [place] [id number] Feb, [facility] [address] [id number] [address] [place] [address], [place] [id number] Feb, [facility] [address] [id number] [address] [place] [address], [place] [id number] Feb, [facility] [address] [id number] [address] [place] [address], [place] [id number] Feb, [facility] [address] [id number] [address] [place] [address], [place] [id number] Feb, [facility] [address] [id number] [address] [place] [address], [place] [id number] Jan, [facility] [address] [id number] [address] [place] [address], [place] [id number] Jan, [facility] [address] [id number] [address] [place] [address], [place] [id number] Jan, [facility] [address] [id number] [address] [place] [address], [place] [id number] Jan, [facility] [address] [id number] [address] [place] [address], [place] [id number] Jan, [facility] [address] [id number] [address] [place] [address], [place] [id number] Jan, [facility] [address] [id number] [facility] [place] [id number] Jan, [facility] [address] [id number] [address] [place] [address], [place] [id number] Jan, [facility] [address] [id number] [facility] [place] [id number] Jan, [facility] [address] [id number] [address] [place] [address], [place] [id number] Jan, [facility] [address] [id number] [address] [place] [address], [place] [id number] Jan, [facility] [address] [id number] [address] [place] [address], [place] [id number] Dec, [facility] [address] [id number] [address] [place] [address], [place] [id number] Dec, [facility] [address] [id number] [address] [place] [address], [place] [id number] Dec, [facility] [address] [id number] [address] [place] [address], [place] [id number] Dec, [facility] [address] [id number] [address] [place] [address], [place] [id number] Dec, [facility] [address] [id number] [address] [place] [address], [place] [id number] Dec, [facility] [address] [id number] [address] [place] [address], [place] [id number] November, [facility] [address] [id number] [address] [place] [address], [place] [id number] November, [facility] [address] [id number] [address] [place] [address], [place] [id number] November, [facility] [address] [id number] [address] [place] [address], [place] [id number] November, [facility] [address] [id number] [address] [place] [address], [place] [id number] November, [facility] [address] [id number] [address] [place] [address], [place] [id number] November, [facility] [address] [id number] [address] [place] [address], [place] [id number] Oct, [facility] [address] [id number] [address] [place] [address], [place] [id number] Oct, [facility] [address] [id number] [address] [place] [address], [place] [id number] Oct, [facility] [address] [id number] [address] [place] [address], [place] [id number] Oct, [facility] [address] [id number] [address] [place] [address], [place] [id number] Sep, [facility] [address] [id number] [address] [place] [address], [place] [id number] Sep, [facility] [address] [id number] [address] [place] [address], [place] [id number] Sep, [facility] [address] [id number] [address] [place] [address], [place] [id number] Sep, [facility] [address] [id number] [address] [place] [address], [place] [id number] Sep, [facility] [address] [id number] [address] [place] [address], [place] [id number] Aug, [facility] [address] [id number] [address] [place] [address], [place] [id number] Aug, [facility] [address] [id number] [address] [place] [address], [place] [id number] Aug, [facility] [address] [id number] [address] [place] [address], [place] [id number] Aug, [facility] [address] [id number] [address] [place] [address], [place] [id number] 14 Aug, 2013 [facility] [id number] May, [facility] [address] [id number] [address] [place] [address], [place] [id number] May, [facility] [address] [id number] [address] [place] [address], [place] [id number] May, [facility] [address] [id number] [address] [place] [address], [place] [id number] May, [facility] [address] [id number] [address] [place] [address], [place] [id number] May, [facility] [address] [id number] [address] [place] [address], [place] [id number] Apr, [facility] [address] [id number] [address] [place] [address], [place] [id number] Apr, [facility] [address] [id number] [address] [place] [address], [place] [id number] Apr, [facility] [address] [id number] [address] [place] [address], [place] [id number] Apr, [facility] [address] [id number] [address] [place] [address], [place] [id number] Apr, [facility] [address] [id number] [address] [place] [address], [place] [id number] Apr, [facility] [address] [id number] [address] [place] [address], [place] [id number] Apr, [facility] [address] [id number] [address] [place] [address], [place] [id number] 28 Mar, 2013 [facility] [address] [id number] [address] [place] [address], [place] [id number] Mar, [facility] [address] [id number] [address] [place] [address], [place] [id number] 24 Mar, 2013 [facility] [address] [id number] [address] [place] [address], [place] [id number] 16 Mar, 2013 [facility] [address] [id number] [address] [place] [address], [place] [id number] Mar, [facility] [address] [id number] [address] [place] [address], [place] [id number] Mar, [facility] [address] [id number] [address] [place] [address], [place] [id number] Feb, [facility] [address] [id number] [address] [place] [address], [place] [id number] Feb, [facility] [address] [id number] [address] [place] [address], [place] [id number] Feb, [facility] [address] [id number] [address] [place] [address], [place] [id number] Feb, [facility] [address] [id number] [address] [place] [address], [place] [id number] Feb, [facility] [address] [id number] [address] [place] [address], [place] [id number] Feb, [facility] [address] [id number] [address] [place] [address], [place] [id number] Jan, [facility] [address] [id number] [address] [place] [address], [place] [id number] Dec, [facility] [address] [id number] [address] [place] [address], [place] [id number] Dec, [facility] [address] [id number] [address] [place] [address], [place] [id number] Dec, [facility] [address] [id number] [address] [place] [address], [place] [id number] Dec, [facility] [address] [id number] [address] [place] [address], [place] [id number] Dec, [facility] [address] [id number] [address] [place] [address], [place] [id number] Dec, [facility] [address] [id number] [address] [place] [address], [place] [id number] 17 Dec, 2012 [facility] [address] [id number] [address] [place] [address], [place] [id number] Dec, [facility] [address] [id number] [address] [place] [address], [place] [id number] Dec, [facility] [address] [id number] [address] [place] [address], [place] [id number] November, [facility] [address] [id number] [address] [place] [address], [place] [id number] November, [facility] [address] [id number] [address] [place] [address], [place] [id number] Oct, [facility] [address] [id number] [address] [place] [address], [place] [id number] Sep, [facility] [address] [id number] [address] [place] [address], [place] [id number] Sep, [facility] [address] [id number] [address] [place] [address], [place] [id number] 15 Sep, 2012 [facility] [address] [id number] [address] [place] [address], [place] [id number] Sep, [facility] [address] [id number] [address] [place] [address], [place] [id number] Aug, [facility] [address] [id number] [address] [place] [address], [place] [id number] Aug, [facility] [address] [id number] [address] [place] [address], [place] [id number] Jul, [facility] [address] [id number] [address] [place] [address], [place] [id number] Jul, [facility] [address] [id number] [address] [place] [address], [place] [id number] Jul, [facility] [address] [id number] [address] [place] [address], [place] [id number] Sep, [facility] [address] [facility] [place] [id number] [address] [place] [id number] Sep, [facility] [address] [facility] [place] [id number] [address] [place] [id number] 10 Sep, 2011 IMMUNIZATIONS No Known Immunizations SOCIAL HISTORY Never Assessed REASON FOR VISIT PLAN OF CARE VITAL SIGNS Height 67 in 2013-04-10 Weight 190.9 lbs 2013-04-10 Temperature 98.1 degrees Fahrenheit 2013-04-10 Heart Rate 70 bpm 2013-04-10 Respiratory Rate 16 2013-04-10 Blood pressure systolic 138 mmHg 2013-04-10 Blood pressure diastolic 90 mmHg 2013-04-10 MEDICATIONS Unknown Medications RESULTS No Results PROCEDURES [...] dizziness and nausea 12/06 Hospitalization History UTI, AMS-[facility] 09/21/16 Hospitalization History Large bowel obstruction, Dehydration -[facility] 01/01/17 Hospitalization History [facility]- UTI/Sepsis 01/18/2018 Hospitalization History [facility] - infection 4 days 05/2018
--- OUTSIDE RECORDS SUMMARY | 2020-01-14 23:00 | XMS REPORT ---
Author Author Melvin BENTLEY Organization [facility] Address [address] [place] [address] Care Team Providers Care Chemical Dependency Professional Name Role Phone LINDA BENTLEY Unavailable PROBLEMS Type Condition ICD9-CM Code CXN61-IM Code Onset Dates Condition S tatus SNOMED Code Problem Incontinence of feces, unspecified fecal incontinence type R15.9 Active 02265818 Problem Primary insomnia F51.01 Active 193 341170 Problem Hydronephrosis with ureteral stricture, not else where classified N13.1 Active 16989116 Problem Chronic fatigue, unspecified R53.82 A ctive 745301846 Problem Hypertension, benign I10 Active 74834328 Problem Mood disorder F39 Active 739413 05 Problem Neuropathy G62.9 Active 933158424 Problem Chronic pain syndrome G89.4 Active 008269775 Problem Abdominal pain, left lower quadrant R10.32 Active 966458179 Problem 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 Active 559779117 Problem 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 721086318 Problem Anxiety F41.9 Active 34415462 Problem Polyneuropathy G62.9 Active 01496 000 Problem Malignant neoplasm of colon, unspecified part of colon C18.9 Active 634970643 Problem Attention to urostomy Z43.6 Active 199410428 ALLERGIES No Information ENCOUNTERS Encounter Location Date Diagnosis [facility] [address] [facility] [id number] [address] [place] [id number] November, Attention to urostomy Z43.6 [facility] [address] [place] [id number] [address] [place] [phone] Oct, Attention to urostomy Z43.6 and Hypertension, benign I10 [facility] [address] [facility] [id number] [address] [place] [phone] Oct, [facility] [address] [place] [id number] [address] [place] [id number] 10 Sep, 2019 Neuropathy G62.9 ; Anxiety F 41.9 and Encounter for Medicare annual wellness exam Z00.00 [place] [address] [id number] [address] [place] [phone] 12 Aug, 2019 Anxiety F41.9 ; Neuropathy G 62.9 and Encounter for Medicare annual wellness exam Z00.00 [place] [address] [id number] [address] [place] [id number] 31 Jul, 2019 [place] [address] [id number] [address] [place] [phone] Jul, Primary insomnia F51.01 and Anxiety F41.9 [place] [address] [id number] [address] [place] [id number] 14 Jul, 2019 Primary insomnia F51.01 ; Ne uropathy G62.9 and Encounter for Medicare annual wellness exam Z00.00 [place] [address] [id number] [address] [place] [id number] 23 Jun, 2019 Neuropathy G62.9 and Encount er for Medicare annual wellness exam Z00.00 [place] [address] [id number] [address] [place] [id number] 18 Jun, 2019 Primary insomnia F51.01 [place] [address] [id number] [address] [place] [id number] 17 Jun, 2019 Primary insomnia F51.01 ; En counter for Medicare annual wellness exam Z00.00 and Neuropathy G62.9 [place] [address] [id number] [address] [place] [phone] Jun, Malignant neoplasm of colon, unspecified part of colon C18.9 and Chronic fatigue, unspecified R53.82 [place] [address] [id number] [address] [place] [address] May, Neuropathy G62.9 and Encount er for Medicare annual wellness exam Z00.00 [place] [address] [id number] [address] [place] [id number] 15 May, 2019 Primary insomnia F51.01 [facility] [address] [id number] [address] [place] [phone] May, Neuropathy G62.9 and Anxiety F41.9 [facility] [address] [id number] [address] [place] [id number] 30 Apr, 2019 Encounter for Medicare annua l wellness exam Z00.00 [facility] [address] [id number] [address] [place] [id number] 16 Apr, 2019 Neuropathy G62.9 and Encount er for Medicare annual wellness exam Z00.00 [facility] [address] [id number] [address] [place] [id number] 26 Mar, 2019 Neuropathy G62.9 and Primary insomnia F51.01 [facility] [address] [id number] [address] [place] [phone] Mar, [facility] [address] [id number] [address] [place] [phone] Feb, Primary insomnia F51.01 ; Ne uropathy G62.9 and Encounter for Medicare annual wellness exam Z00.00 [facility] [address] [id number] [address] [place] [id number] 06 Feb, 2019 Neuropathy G62.9 and Encount er for Medicare annual wellness exam Z00.00 [facility] [address] [id number] [address] [place] [phone] Feb, Primary insomnia F51.01 and High risk medication use Z79.899 [facility] [address] [id number] [address] [place] [id number] Jan, [facility] [address] [id number] [address] [place] [address] Jan, Neuropathy G62.9 [facility] [address] [id number] [address] [place] [phone] Dec, [facility] [address] [id number] [address] [place] [id number] Dec, Encounter for Medicare annua l wellness exam Z00.00 and Neuropathy G62.9 [facility] [address] [id number] [address] [place] [address] November, [facility] [address] [id number] [address] [place] [address] November, Encounter for Medicare annua l wellness exam Z00.00 ; 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 ; Mood disorder F39 ; Chronic fatigue, unspecified R53.82 and Neuropathy G62.9 [facility] [address] [id number] [address] [place] [address] November, Neuropathy G62.9 [facility] [address] [id number] [address] [place] [address] Oct, Neuropathy G62.9 [facility] [address] [id number] [address] [place] [address] Oct, Hypertension, benign I10 and Anxiety F41.9 [facility] [address] [id number] [address] [place] [phone] Oct, [facility] [address] [id number] [address] [place] [phone] Oct, [facility] [address] [id number] [address] [place] [phone] Oct, [facility] [address] [id number] [address] [place] [address] Oct, Neuropathy G62.9 [facility] [address] [id number] [address] [place] [phone] Sep, [facility] [address] [id number] [address] [place] [address] Sep, Neuropathy G62.9 [facility] [address] [id number] [address] [place] [phone] Sep, [facility] [address] [id number] [address] [place] [address] Sep, H/O malignant carcinoid tumo r of 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 and Primary insomnia F51.01 [facility] [address] [id number] [address] [place] [address] Aug, [facility] [address] [id number] [address] [place] [phone] Aug, Neuropathy G62.9 [facility] [address] [id number] [address] [place] [phone] Aug, [facility] [address] [facility] [id number] [address] [place] [id number] Jul, Non-recurrent acute suppurat francine otitis media of left ear without spontaneous rupture of tympanic membrane H66.002 [facility] [address] [facility] [id number] [address] [place] [address] Jul, Neuropathy G62.9 [facility] [address] [facility] [id number] [address] [place] [phone] Jun, [facility] [address] [facility] [id number] [address] [place] [phone] Jun, [facility] [address] [facility] [id number] [address] [place] [address] Jun, Neuropathy G62.9 [facility] [address] [facility] [id number] [address] [place] [phone] Jun, [facility] [address] [facility] [id number] [address] [place] [phone] Jun, [facility] [address] [facility] [id number] [address] [place] [address] Jun, Lumbar neuritis M54.16 [facility] [address] [facility] [id number] [address] [place] [address] May, Neuropathy G62.9 [facility] [address] [address] May, [facility] [address] [id number] 05 May, 2018 Neuropathy G62.9 and Hyperte nsion, benign I10 [facility] [address] [address] 09 Apr, 2018 Polyneuropathy G62.9 and Hyp ertension, benign I10 [facility] [address] [id number] 17 Mar, 2018 Chronic pain syndrome G89.4 and Hypertension, benign I10 [place] [address] [id number] 11 Mar, 2018 Polyneuropathy G62.9 and Hyp ertension, benign I10 [place] [address] [address] Feb, [facility] [address] [address] Feb, Hypertension, benign I10 [place] [address] [address] Feb, Hypertension, benign I10 ; P olyneuropathy G62.9 and Primary insomnia F51.01 [place] [address] [address] Jan, Hypertension, benign I10 and Polyneuropathy G62.9 [facility] [address] [place] [id number] [address] [place] [address] Jan, Hypertension, benign I10 and Neuropathy G62.9 [facility] [address] [place] [id number] [address] [place] [address] Jan, [facility] [address] [address] Dec, Polyneuropathy G62.9 [facility] [address] [facility] [id number] [address] [place] [address] Dec, Mood disorder F39 [facility] [address] [facility] [id number] [address] [place] [address] November, Polyneuropathy G62.9 [facility] [address] [facility] [id number] [address] [place] [address] November, Medicare annual wellness vis it, initial Z00.00 [facility] [address] [facility] [id number] [address] [place] [address] November, Mood disorder F39 [facility] [address] [facility] [id number] [address] [place] [address] Oct, Polyneuropathy G62.9 [facility] [address] [facility] [id number] [address] [place] [phone] Oct, [facility] [address] [facility] [id number] [address] [place] [address] Oct, [facility] [address] [facility] [id number] [address] [place] [address] Oct, Mood disorder F39 ; Attentio n to urostomy Z43.6 ; Chronic pain syndrome G89.4 and Polyneuropathy G62.9 [facility] [address] [facility] [id number] [address] [place] [address] Sep, Polyneuropathy G62.9 [facility] [address] [facility] [id number] [address] [place] [address] Sep, [facility] [address] [facility] [id number] [address] [place] [address] Sep, Polyneuropathy G62.9 [facility] [address] [facility] [id number] [address] [place] [address] Aug, Polyneuropathy G62.9 [facility] [address] [facility] [id number] [address] [place] [address] Aug, Malignant neoplasm of colon, unspecified part of colon C18.9 and Polyneuropathy G62.9 [facility] [address] [facility] [id number] [address] [place] [address] Aug, Neuropathy G62.9 and Polyneu ropathy G62.9 [facility] [address] [facility] [id number] [address] [place] [address] Jul, Encounter for drug screening Z02.83 [facility] [address] [facility] [id number] [address] [place] [address] Jul, Polyneuropathy G62.9 [facility] [address] [facility] [id number] [address] [place] [address] Jul, [facility] [address] [facility] [id number] [address] [place] [address] Jul, Neuropathy G62.9 and Anxiety F41.9 [facility] [address] [facility] [id number] [address] [place] [address] Jul, [facility] [address] [facility] [id number] [address] [place] [address] Jul, [facility] [address] [facility] [id number] [address] [place] [address] Jul, [facility] [address] [facility] [id number] [address] [place] [address] Jul, Polyneuropathy G62.9 [facility] [address] [facility] [id number] [address] [place] [address] Jul, [facility] [address] [facility] [id number] [address] [place] [address] Jun, [facility] [address] [facility] [id number] [address] [place] [address] Jun, [facility] [address] [facility] [id number] [address] [place] [address] Jun, [facility] [address] [facility] [id number] [address] [place] [address] 07 Jun, 2017 Encounter for dental examina tion Z01.20 [facility] [address] [place] [id number] [address] [place] [address] Jun, Polyneuropathy G62.9 and Anx iety F41.9 [facility] [address] [place] [id number] [address] [place] [address] Jun, [facility] [id number] [address] May, Dental examination Z01.20 [facility] [address] [address] May, Polyneuropathy G62.9 [facility] [address] [place] [id number] [place] [address] Apr, Polyneuropathy G62.9 [facility] [address] [address] Apr, Polyneuropathy G62.9 [facility] [address] [address] Apr, Hypertension, benign I10 ; P olyneuropathy G62.9 and Anxiety F41.9 [facility] [address] [address] Apr, Primary insomnia F51.01 and Polyneuropathy G62.9 [facility] [address] [place] [id number] [address] [place] [address] Apr, Primary insomnia F51.01 and Polyneuropathy G62.9 [facility] [address] [place] [id number] [address] [place] [address] Mar, Primary insomnia F51.01 [facility] [address] [place] [id number] [address] [place] [address] Mar, [facility] [address] [place] [id number] [address] [place] [address] Mar, Polyneuropathy G62.9 [facility] [address] [id number] [address] [place] [address] Feb, Primary insomnia F51.01 [facility] [address] [id number] [address] [place] [address], [place] [address] Feb, [facility] [address] [id number] [address] [place] [address], [place] [address] Feb, [facility] [address] [id number] [address] [place] [address] Feb, Polyneuropathy G62.9 [facility] [address] [id number] [address] [place] [address] Feb, Primary insomnia F51.01 [facility] [address] [id number] [address] [place] [address], [place] [address] Jan, [facility] [address] [id number] [address] [place] [phone] Jan, [facility] [address] [id number] [address] [place] [address] Dec, [facility] [address] [id number] [address] [place] [address] Dec, Primary insomnia F51.01 [facility] [address] [id number] [address] [place] [address] Dec, Primary insomnia F51.01 [facility] [address] [id number] [address] [place] [address] Dec, [facility] [address] [id number] [address] [place] [address] Dec, [facility] [address] [id number] [address] [place] [address] Dec, [facility] [address] [id number] [address] [place] [address] Dec, [facility] [address] [facility] [id number] [address] [place] [address] November, Primary insomnia F51.01 and Polyneuropathy G62.9 [facility] [address] [facility] [id number] [address] [place] [address] November, [facility] [address] [facility] [id number] [address] [place] [address] November, Abdominal pain, left lower q uadrant R10.32 [facility] [address] [id number] [address] [place] [address] November, [facility] [address] [facility] [id number] [address] [place] [address] Oct, [facility] [address] [facility] [id number] [address] [place] [address] Oct, Abdominal pain, left lower q uadrant R10.32 ; 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 and Neuropathy G62.9 [facility] [address] [facility] [id number] [address] [place] [address] Oct, [facility] [address] [facility] [id number] [address] [place] [address] Sep, [facility] [id number] [place] [id number] Sep, [facility] [address] [facility] [id number] [address] [place] [address] Sep, [facility] [address] [facility] [id number] [address] [place] [address] Aug, [facility] [address] [facility] [id number] [address] [place] [address] Aug, [facility] [address] [facility] [id number] [address] [place] [address] Aug, Abdominal pain, left lower q uadrant R10.32 ; Neuropathy G62.9 and Anxiety F41.9 [facility] [id number] [place] [address] Jul, [facility] [address] [id number] [address] [place] [phone] Jul, [facility] [address] [id number] [address] [place] [address] Jul, [facility] [address] [id number] [address] [place] [address] Jul, [facility] [address] [id number] [address] [place] [address] Jul, [facility] [address] [id number] [address] [place] [address] Jun, [facility] [address] [id number] [address] [place] [address] May, [facility] [address] [id number] [address] [place] [id number] May, [facility] [address] [id number] [address] [place] [address] Apr, [facility] [address] [id number] [address] [place] [address] Apr, Muscle spasms of both lower extremities M62.838 and Cellulitis, unspecified cellulitis site L03.90 [facility] [address] [id number] [address] [place] [address] Apr, [facility] [address] [id number] [address] [place] [address] 23 Mar, 2016 Generalized abdominal pain R 10.84 [facility] [address] [id number] [address] [place] [address] 20 Mar, 2016 [facility] [address] [id number] [address] [place] [id number] 14 Mar, 2016 [facility] [address] [id number] [address] [place] [address] 14 Mar, 2016 [facility] [address] [id number] [address] [place] [id number] 13 Mar, 2016 [facility] [address] [id number] [address] [place] [id number] 12 Mar, 2016 [facility] [address] [id number] [address] [place] [id number] 09 Mar, 2016 [facility] [address] [id number] [address] [place] [id number] 06 Mar, 2016 [facility] [address] [id number] [address] [place] [phone] Feb, Other specified diseases of anus and rectum K62.89 [facility] [address] [id number] [address] [place] [id number] Feb, [facility] [address] [id number] [address] [place] [id number] Feb, Dizziness R42 [facility] [address] [id number] [address] [place] [id number] Feb, [facility] [address] [id number] [address] [place] [id number] Jan, Polyneuropathy G62.9 [facility] [address] [id number] [address] [place] [id number] Jan, Other specified diseases of anus and rectum K62.89 [facility] [address] [id number] [address] [place] [id number] Jan, [facility] [address] [id number] [address] [place] [id number] Jan, [facility] [address] [id number] [address] [place] [phone] Jan, [facility] [address] [id number] [address] [place] [phone] Jan, Dizziness R42 [facility] [address] [id number] [address] [place] [address], [place] [id number] Dec, [facility] [address] [id number] [place] [address], [place] [address] Dec, [facility] [address] [id number] [address] [place] [address], [place] [address] Dec, [facility] [address] [id number] [address] [place] [address], [place] [address] Dec, Dizziness R42 [facility] [address] [id number] [address] [place] [address], [place] [address] November, [facility] [address] [id number] [address] [place] [address], [place] [address] Oct, [facility] [address] [id number] [address] [place] [address], [place] [address] Oct, [facility] [address] [id number] [address] [place] [address], [place] [address] Oct, [facility] [address] [id number] [address] [place] [address], [place] [address] Oct, [facility] [address] [id number] [address] [place] [address], [place] [address] Sep, [facility] [address] [id number] [address] [place] [address], [place] [address] Sep, Primary insomnia F51.01 [facility] [address] [id number] [address] [place] [address], [place] [address] Sep, Primary insomnia F51.01 [facility] [address] [id number] [address] [place] [address], [place] [address] Sep, [facility] [address] [id number] [address] [place] [address], [place] [address] Aug, [facility] [address] [id number] [address] [place] [address], [place] [address] Aug, [facility] [address] [id number] [address] [place] [address] Aug, Primary insomnia F51.01 ; Mo od disorder F39 ; Nausea and vomiting, unspecified intactability, vomiting of unspecified type R11.2 and Diarrhea R19.7 [facility] [address] [id number] [address] [place] [address] Aug, [facility] [id number] [place] [address] Aug, Folliculitis L73.9 [facility] [id number] [place] [address] Aug, [facility] [id number] [place] [address] Aug, [facility] [id number] [place] [address] Jul, Folliculitis L73.9 [facility] [address] [id number] [address] [place] [address] Jul, [facility] [id number] [place] [address] Jun, Folliculitis L73.9 [facility] [address] [id number] [address] [place] [address] Jun, [facility] [address] [id number] [address] [place] [address] May, Polyneuropathy G62.9 [facility] [address] [id number] [address] [place] [address] May, Other specified diseases of anus and rectum K62.89 [facility] [address] [id number] [address] [place] [address] May, [facility] [address] [id number] [address] [place] [address] May, Primary insomnia F51.01 [facility] [address] [id number] [address] [place] [address] May, [facility] [address] [id number] [address] [place] [address] May, [facility] [address] [id number] [address] [place] [address] Apr, Other specified diseases of anus and rectum K62.89 ; Chronic fatigue R53.82 ; Urinary tract infection, site not specified N39.0 and Enterococcus as the cause of diseases classified elsewhere B95.2 [facility] [address] [id number] [address] [place] [address] 16 Apr, 2015 [facility] [address] [id number] [address] [place] [address] 15 Apr, 2015 [facility] [address] [id number] [address] [place] [address] Apr, 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 [facility] [address] [id number] [address] [place] [address] 05 Apr, 2015 [facility] [address] [id number] [address] [place] [address] 26 Mar, 2015 [facility] [address] [id number] [address] [place] [address] 23 Mar, 2015 [facility] [address] [id number] [address] [place] [address] 17 Mar, 2015 [facility] [address] [id number] [address] [place] [address] 14 Mar, 2015 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 [facility] [address] [id number] [address] [place] [address] 12 Mar, 2015 [facility] [address] [id number] [address] [place] [address] 11 Mar, 2015 [facility] [address] [id number] [address] [place] [address] Mar, [facility] [address] [id number] [address] [place] [address] Mar, [facility] [address] [id number] [address] [place] [address] Feb, [facility] [address] [id number] [address] [place] [address] Feb, [facility] [address] [id number] [address] [place] [address] Feb, [facility] [address] [id number] [address] [place] [address] Jan, [facility] [address] [id number] [address] [place] [address] Jan, Nausea 787.02 and Neuropathy 355.9 [facility] [address] [id number] [address] [place] [address] Jan, [facility] [address] [id number] [address] [place] [address] Jan, [facility] [address] [id number] [address] [place] [address] Jan, [facility] [address] [id number] [address] [place] [id number] 10 Jan, 2015 Dental examination V72.2 [facility] [address] [id number] [address] [place] [address] Jan, [facility] [address] [id number] [address] [place] [address] Dec, [facility] [address] [id number] [address] [place] [address] Dec, [facility] [address] [id number] [address] [place] [address] Dec, Neuropathy 355.9 [facility] [address] [id number] [address] [place] [address] November, [facility] [address] [id number] [address] [place] [address], [place] [address] November, [facility] [address] [id number] [address] [place] [address], [place] [address] November, [facility] [address] [id number] [address] [place] [address], [place] [address] Oct, [facility] [address] [id number] [address] [place] [address], [place] [address] Oct, [facility] [address] [id number] [address] [place] [address], [place] [address] Sep, [facility] [address] [id number] [address] [place] [address], [place] [address] Sep, [facility] [address] [id number] [address] [place] [address], [place] [address] Sep, [facility] [address] [id number] [address] [place] [address], [place] [address] Sep, [facility] [address] [id number] [address] [place] [address], [place] [address] Sep, [facility] [address] [id number] [address] [place] [address], [place] [address] Sep, [facility] [address] [id number] [address] [place] [address], [place] [address] Sep, [facility] [address] [id number] [address] [place] [address], [place] [address] Sep, [facility] [address] [id number] [address] [place] [address], [place] [address] Aug, [facility] [address] [id number] [address] [place] [address], [place] [address] Aug, [facility] [address] [id number] [address] [place] [address], [place] [address] Aug, [facility] [address] [id number] [address] [place] [address], [place] [address] Aug, 2014 [facility] [address] [id number] [address] [place] [address], [place] [address] Aug, 2014 [facility] [address] [id number] [address] [place] [address], [place] [address] Aug, 2014 [facility] [address] [id number] [address] [place] [address], [place] [address] Aug, 2014 [facility] [address] [id number] [address] [place] [address], [place] [address] Aug, [facility] [address] [id number] [address] [place] [address], [place] [address] Jul, [facility] [address] [id number] [address] [place] [address], [place] [address] Jul, [facility] [address] [id number] [address] [place] [address], [place] [address] Jun, [facility] [address] [id number] [address] [place] [address], [place] [address] Jun, [facility] [address] [id number] [address] [place] [address], [place] [address] Jun, [facility] [address] [id number] [address] [place] [address], [place] [address] Jun, [facility] [address] [id number] [address] [place] [address], [place] [address] Jun, [facility] [address] [id number] [address] [place] [address], [place] [address] Jun, [facility] [address] [id number] [address] [place] [address], [place] [address] Jun, [facility] [address] [id number] [address] [place] [address], [place] [address] Jun, [facility] [address] [id number] [address] [place] [address], [place] [address] Jun, [facility] [address] [id number] [address] [place] [address], [place] [address] Jun, [facility] [address] [id number] [address] [place] [address], [place] [address] Jun, [facility] [address] [id number] [address] [place] [address], [place] [address] May, [facility] [address] [id number] [address] [place] [address], [place] [address] May, [facility] [address] [id number] [address] [place] [address], [place] [address] May, [facility] [address] [id number] [address] [place] [address], [place] [address] May, [facility] [address] [id number] [address] [place] [address], [place] [address] May, [facility] [address] [id number] [address] [place] [address], [place] [address] May, [facility] [address] [id number] [address] [place] [address], [place] [address] May, [facility] [address] [id number] [address] [place] [address], [place] [address] May, [facility] [address] [id number] [address] [place] [address], [place] [address] May, [facility] [address] [id number] [address] [place] [address], [place] [address] Apr, [facility] [address] [id number] [address] [place] [address], [place] [address] Apr, [facility] [address] [id number] [address] [place] [address], [place] [address] Apr, [facility] [address] [id number] [address] [place] [address], [place] [address] Apr, [facility] [address] [id number] [facility] [place] [address] Apr, [facility] [address] [id number] [facility] [place] [address] Mar, [facility] [address] [id number] [facility] [place] [address] Mar, [facility] [address] [id number] [address] [place] [address], [place] [address] Feb, [facility] [address] [id number] [address] [place] [address], [place] [address] Feb, [facility] [address] [id number] [address] [place] [address], [place] [address] Feb, [facility] [address] [id number] [address] [place] [address], [place] [address] Feb, [facility] [address] [id number] [address] [place] [address], [place] [address] Feb, [facility] [address] [id number] [address] [place] [address], [place] [address] Feb, [facility] [address] [id number] [address] [place] [address], [place] [address] Jan, [facility] [address] [id number] [address] [place] [address], [place] [address] Jan, [facility] [address] [id number] [address] [place] [address], [place] [address] Jan, [facility] [address] [id number] [address] [place] [address], [place] [address] Jan, [facility] [address] [id number] [address] [place] [address], [place] [address] Jan, [facility] [address] [id number] [address] [place] [address], [place] [address] Jan, [facility] [address] [id number] [address] [place] [address], [place] [address] Jan, [facility] [address] [id number] [facility] [place] [address] Jan, [facility] [address] [id number] [address] [place] [address], [place] [address] Jan, [facility] [address] [id number] [facility] [place] [address] Jan, [facility] [address] [id number] [address] [place] [address], [place] [address] Jan, [facility] [address] [id number] [address] [place] [address], [place] [address] Dec, [facility] [address] [id number] [address] [place] [address], [place] [address] Dec, [facility] [address] [id number] [address] [place] [address], [place] [address] Dec, [facility] [address] [id number] [address] [place] [address], [place] [address] Dec, [facility] [address] [id number] [address] [place] [address], [place] [address] Dec, [facility] [address] [id number] [address] [place] [address], [place] [address] Dec, [facility] [address] [id number] [address] [place] [address], [place] [address] November, [facility] [address] [id number] [address] [place] [address], [place] [address] November, [facility] [address] [id number] [address] [place] [address], [place] [address] November, [facility] [address] [id number] [address] [place] [address], [place] [address] November, [facility] [address] [id number] [address] [place] [address], [place] [address] November, [facility] [address] [id number] [address] [place] [address], [place] [address] November, [facility] [address] [id number] [address] [place] [address], [place] [address] Oct, [facility] [address] [id number] [address] [place] [address], [place] [address] Oct, [facility] [address] [id number] [address] [place] [address], [place] [address] Oct, [facility] [address] [id number] [address] [place] [address], [place] [address] Oct, [facility] [address] [id number] [address] [place] [address], [place] [address] Sep, [facility] [address] [id number] [address] [place] [address], [place] [address] Sep, [facility] [address] [id number] [address] [place] [address], [place] [address] Sep, [facility] [address] [id number] [address] [place] [address], [place] [address] Sep, [facility] [address] [id number] [address] [place] [address], [place] [address] Sep, [facility] [address] [id number] [address] [place] [address], [place] [address] Aug, [facility] [address] [id number] [address] [place] [address], [place] [address] Aug, [facility] [address] [id number] [address] [place] [address], [place] [address] Aug, [facility] [address] [id number] [address] [place] [address], [place] [address] Aug, [facility] [address] [id number] [address] [place] [address], [place] [address] 14 Aug, 2013 [facility] [address] [place] [id number] May, [facility] [address] [id number] [address] [place] [address], [place] [address] May, [facility] [address] [id number] [address] [place] [address], [place] [address] 08 May, 2013 [facility] [address] [id number] [address] [place] [address], [place] [address] May, [facility] [address] [id number] [address] [place] [address], [place] [address] May, [facility] [address] [id number] [address] [place] [address], [place] [address] Apr, [facility] [address] [id number] [address] [place] [address], [place] [address] Apr, [facility] [address] [id number] [address] [place] [address], [place] [address] Apr, [facility] [address] [id number] [address] [place] [address], [place] [address] Apr, [facility] [address] [id number] [address] [place] [address], [place] [address] Apr, [facility] [address] [id number] [address] [place] [address], [place] [address] Apr, [facility] [address] [id number] [address] [place] [address], [place] [address] Apr, [facility] [address] [id number] [address] [place] [address], [place] [id number] 28 Mar, 2013 [facility] [address] [id number] [address] [place] [address], [place] [address] 25 Mar, 2013 [facility] [address] [id number] [address] [place] [address], [place] [address] 24 Sep2012 [facility] [address] [id number] [address] [place] [address], [place] [id number] 16 Sep2012 [facility] [address] [id number] [address] [place], [place] [address] [address] Mar, [facility] [address] [id number] [address] [place] [address], [place] [address] Mar, [facility] [address] [id number] [address] [place] [address], [place] [address] Feb, [facility] [address] [id number] [address] [place] [address], [place] [address] Feb, [facility] [address] [id number] [address] [place] [address], [place] [address] Feb, [facility] [address] [id number] [address] [place] [address], [place] [address] Feb, [facility] [address] [id number] [address] [place] [address], [place] [address] Feb, [facility] [address] [id number] [address] [place] [address], [place] [address] Feb, [facility] [address] [id number] [address] [place] [address], [place] [address] Jan, [facility] [address] [id number] [address] [place] [address], [place] [address] Dec, [facility] [address] [id number] [address] [place] [address], [place] [address] Dec, [facility] [address] [id number] [address] [place] [address], [place] [address] Dec, [facility] [address] [id number] [address] [place] [address], [place] [address] Dec, [facility] [address] [id number] [address] [place] [address], [place] [address] Dec, [facility] [address] [id number] [address] [place] [address], [place] [id number] 18 Dec, 2012 [facility] [address] [id number] [address] [place] [address], [place] [address] 17 Dec, 2012 [facility] [address] [id number] [address] [place] [address], [place] [address] Dec, [facility] [address] [id number] [address] [place] [address], [place] [address] Dec, [facility] [address] [id number] [address] [place] [address], [place] [address] November, [facility] [address] [id number] [address] [place] [address], [place] [address] November, [facility] [address] [id number] [address] [place] [address], [place] [address] Oct, [facility] [address] [id number] [address] [place] [address], [place] [address] Sep, [facility] [address] [id number] [address] [place] [address], [place] [address] Sep, [facility] [address] [id number] [address] [place] [address], [place] [address] 15 Sep, 2012 [facility] [address] [id number] [address] [place] [address], [place] [address] Sep, [facility] [address] [id number] [address] [place] [address], [place] [address] Aug, [facility] [address] [id number] [address] [place] [address], [place] [address] Aug, [facility] [address] [id number] [address] [place] [address], [place] [address] Jul, [facility] [address] [id number] [address] [place] [address], [place] [address] Jul, [facility] [address] [id number] [address] [place] [address], [place] [id number] 18 Jul, 2012 [facility] [address] [id number] [address] [place] [address], [place] [address] 22 Sep, 2011 [facility] [address] [id number] [address] [place] [address], [place] [id number] 17 Sep, 2011 [facility] [address] [facility] [id number] [address] [place] [id number] 10 Sep, 2011 IMMUNIZATIONS No Known Immunizations SOCIAL HISTORY Never Assessed REASON FOR VISIT PLAN OF CARE VITAL SIGNS MEDICATIONS Unknown Medications RESULTS No Results PROCEDURES Procedure Date Ordered Result Body Site COMPLETE CBC W/AUTO DIFF WBC January 02, 2013 COMPREHEN METABOLIC PANEL January 02, 2013 VENIPUNCT, ROUTINE* January 02, 2013 INSTRUCTIONS MEDICATIONS ADMINISTERED No Known Medications MEDICAL [...] bowel obstruction, Dehydration -[facility] 01/01/17 Hospitalization History [facility]- UTI/Sepsis 01/18/2018 Hospitalization History [facility] - infection 4 days 05/2018
--- OUTSIDE RECORDS SUMMARY | 2020-01-14 23:00 | XMS REPORT ---
Author Author Melvin BENTLEY Organization [facility] Address [address] [place] [address] Care Team Providers Care Archivist [employer] Name Role Phone LINDA BENTLEY Unavailable PROBLEMS Type Condition ICD9-CM Code GHP19-YZ Code Onset Dates Condition S tatus SNOMED Code Problem Incontinence of feces, unspecified fecal incontinence type R15.9 Active 16721505 Problem Primary insomnia F51.01 Active 193 032672 Problem Hydronephrosis with ureteral stricture, not else where classified N13.1 Active 08069061 Problem Chronic fatigue, unspecified R53.82 A ctive 113160074 Problem Hypertension, benign I10 Active 84871565 Problem Mood disorder F39 Active 407430 05 Problem Neuropathy G62.9 Active 401036960 Problem Chronic pain syndrome G89.4 Active 674842666 Problem Abdominal pain, left lower quadrant R10.32 Active 373305739 Problem 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 Active 605874827 Problem 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 188160008 Problem Anxiety F41.9 Active 42856802 Problem Polyneuropathy G62.9 Active 40731 000 Problem Malignant neoplasm of colon, unspecified part of colon C18.9 Active 866548792 Problem Attention to urostomy Z43.6 Active [id number] ALLERGIES No Information ENCOUNTERS Encounter Location Date Diagnosis [facility] [address] [facility] [id number] [address] [place] [address] Dec, [facility] [address] [facility] [id number] [address] [place] [address] November, Attention to urostomy Z43.6 [facility] [address] [facility] [id number] [address] [place] [address] 16 Oct, 2019 Attention to urostomy Z43.6 and Hypertension, benign I10 [facility] [address] [id number] [address] [place] [id number] 15 Oct, 2019 [facility] [address] [id number] [address] [place] [address] Sep, Neuropathy G62.9 ; Anxiety F 41.9 and Encounter for Medicare annual wellness exam Z00.00 [facility] [address] [id number] [address] [place] [id number] 12 Aug, 2019 Anxiety F41.9 ; Neuropathy G 62.9 and Encounter for Medicare annual wellness exam Z00.00 [facility] [address] [id number] [address] [place] [address] Jul, [place] [address] [id number] [address] [place] [address] Jul, Primary insomnia F51.01 and Anxiety F41.9 [place] [address] [id number] [address] [place] [address] Jul, Primary insomnia F51.01 ; Ne uropathy G62.9 and Encounter for Medicare annual wellness exam Z00.00 [place] [address] [id number] [address] [place] [address] 23 Jun, 2019 Neuropathy G62.9 and Encount er for Medicare annual wellness exam Z00.00 [facility] [address] [id number] [address] [place] [address] Jun, Primary insomnia F51.01 [place] [address] [id number] [address] [place] [address] Jun, Primary insomnia F51.01 ; En counter for Medicare annual wellness exam Z00.00 and Neuropathy G62.9 [place] [address] [id number] [address] [place] [address] Jun, Malignant neoplasm of colon, unspecified part of colon C18.9 and Chronic fatigue, unspecified R53.82 [place] [address] [id number] [address] [place] [address] May, Neuropathy G62.9 and Encount er for Medicare annual wellness exam Z00.00 [facility] [address] [id number] [address] [place] [address] 15 May, 2019 Primary insomnia F51.01 [facility] [address] [id number] [address] [place] [address] 01 May, 2019 Neuropathy G62.9 and Anxiety F41.9 [facility] [address] [id number] [address] [place] [id number] 30 Apr, 2019 Encounter for Medicare annua l wellness exam Z00.00 [facility] [address] [id number] [address] [place] [address] 16 Apr, 2019 Neuropathy G62.9 and Encount er for Medicare annual wellness exam Z00.00 [facility] [address] [id number] [address] [place] [address] 26 Mar, 2019 Neuropathy G62.9 and Primary insomnia F51.01 [facility] [address] [id number] [address] [place] [id number] 18 Mar, 2019 [facility] [address] [id number] [address] [place] [address] Feb, Primary insomnia F51.01 ; Ne uropathy G62.9 and Encounter for Medicare annual wellness exam Z00.00 [facility] [address] [id number] [address] [place] [address] Feb, Neuropathy G62.9 and Encount er for Medicare annual wellness exam Z00.00 [facility] [address] [id number] [address] [place] [address] Feb, Primary insomnia F51.01 and High risk medication use Z79.899 [facility] [address] [id number] [address] [place] [address] Jan, [facility] [address] [id number] [address] [place] [address] Jan, Neuropathy G62.9 [facility] [address] [id number] [address] [place] [address] Dec, [facility] [address] [id number] [address] [place] [address] Dec, Encounter for Medicare annua l wellness exam Z00.00 and Neuropathy G62.9 [facility] [address] [id number] [address] [place] [address] November, [facility] [address] [id number] [address] [place] [address] November, Encounter for Medicare annua l wellness exam Z00.00 ; 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 ; Mood disorder F39 ; Chronic fatigue, unspecified R53.82 and Neuropathy G62.9 [facility] [address] [id number] [address] [place] [address] November, Neuropathy G62.9 [facility] [address] [id number] [address] [place] [address] Oct, Neuropathy G62.9 [facility] [address] [id number] [address] [place] [address] Oct, Hypertension, benign I10 and Anxiety F41.9 [facility] [address] [id number] [address] [place] [address] Oct, [facility] [address] [id number] [address] [place] [address] Oct, [facility] [address] [id number] [address] [place] [address] Oct, [facility] [address] [id number] [address] [place] [address] Oct, Neuropathy G62.9 [facility] [address] [id number] [address] [place] [address] Sep, [facility] [address] [id number] [address] [place] [address] Sep, Neuropathy G62.9 [facility] [address] [id number] [address] [place] [address] Sep, [facility] [address] [id number] [address] [place] [address] Sep, H/O malignant carcinoid tumo r of 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 and Primary insomnia F51.01 [facility] [address] [id number] [address] [place] [address] Aug, [facility] [address] [id number] [address] [place] [address] Aug, Neuropathy G62.9 [facility] [address] [id number] [address] [place] [address] Aug, [facility] [address] [facility] [id number] [address] [place] [address] Jul, Non-recurrent acute suppurat francine otitis media of left ear without spontaneous rupture of tympanic membrane H66.002 [facility] [address] [id number] [address] [place] [address] Jul, Neuropathy G62.9 [facility] [address] [id number] [address] [place] [address] Jun, [facility] [address] [facility] [id number] [address] [place] [address] Jun, [facility] [address] [id number] [address] [place] [address] Jun, Neuropathy G62.9 [facility] [address] [id number] [address] [place] [address] Jun, [facility] [address] [id number] [address] [place] [address] Jun, [facility] [address] [facility] [id number] [address] [place] [address] Jun, Lumbar neuritis M54.16 [facility] [address] [address] 30 May, 2018 Neuropathy G62.9 [facility] [address] [address] May, [facility] [address] [address] 05 May, 2018 Neuropathy G62.9 and Hyperte nsion, benign I10 [place] [address] [address] Apr, Polyneuropathy G62.9 and Hyp ertension, benign I10 [place] [address] [address] 17 Mar, 2018 Chronic pain syndrome G89.4 and Hypertension, benign I10 [place] [address] [address] Mar, Polyneuropathy G62.9 and Hyp ertension, benign I10 [facility] [address] [address] Feb, [facility] [address] [address] Feb, Hypertension, benign I10 [place] [address] [address] Feb, Hypertension, benign I10 ; P olyneuropathy G62.9 and Primary insomnia F51.01 [facility] [address] [address] Jan, Hypertension, benign I10 and Polyneuropathy G62.9 [facility] [address] [address] Jan, Hypertension, benign I10 and Neuropathy G62.9 [facility] [address] [address] Jan, [facility] [address] [place] [address] Dec, Polyneuropathy G62.9 [facility] [address] [id number] [address] [place] [address] Dec, Mood disorder F39 [facility] [address] [id number] [address] [place] [address] November, Polyneuropathy G62.9 [facility] [address] [facility] [id number] [address] [place] [address] November, Medicare annual wellness vis it, initial Z00.00 [facility] [address] [facility] [id number] [address] [place] [address] November, Mood disorder F39 [facility] [address] [facility] [id number] [address] [place] [address] Oct, Polyneuropathy G62.9 [facility] [address] [facility] [id number] [address] [place] [address] Oct, [facility] [address] [id number] [address] [place] [address] Oct, [facility] [address] [facility] [id number] [address] [place] [address] Oct, Mood disorder F39 ; Attentio n to urostomy Z43.6 ; Chronic pain syndrome G89.4 and Polyneuropathy G62.9 [facility] [address] [id number] [address] [place] [address] Sep, Polyneuropathy G62.9 [facility] [address] [facility] [id number] [address] [place] [address] Sep, [facility] [address] [facility] [id number] [address] [place] [address] Sep, Polyneuropathy G62.9 [facility] [address] [facility] [id number] [address] [place] [address] Aug, Polyneuropathy G62.9 [facility] [address] [id number] [address] [place] [address] Aug, Malignant neoplasm of colon, unspecified part of colon C18.9 and Polyneuropathy G62.9 [facility] [address] [facility] [id number] [address] [place] [address] Aug, Neuropathy G62.9 and Polyneu ropathy G62.9 [facility] [address] [facility] [id number] [address] [place] [address] Jul, Encounter for drug screening Z02.83 [facility] [address] [facility] [id number] [address] [place] [address] Jul, Polyneuropathy G62.9 [facility] [address] [facility] [id number] [address] [place] [address] Jul, [facility] [address] [facility] [id number] [address] [place] [address] Jul, Neuropathy G62.9 and Anxiety F41.9 [facility] [address] [facility] [id number] [address] [place] [address] Jul, [facility] [address] [facility] [id number] [address] [place] [address] Jul, [facility] [address] [facility] [id number] [address] [place] [address] Jul, [facility] [address] [facility] [id number] [address] [place] [address] Jul, Polyneuropathy G62.9 [facility] [address] [facility] [id number] [address] [place] [address] Jul, [facility] [address] [facility] [id number] [address] [place] [address] Jun, [facility] [address] [facility] [id number] [address] [place] [address] Jun, [facility] [address] [facility] [id number] [address] [place] [address] Jun, [facility] [address] [id number] [place] [address] Jun, Encounter for dental examina tion Z01.20 [facility] [address] [facility] [id number] [address] [place] [address] Jun, Polyneuropathy G62.9 and Anx iety F41.9 [facility] [address] [facility] [id number] [address] [place] [address] Jun, [facility] [address] [id number] [place] [address] May, Dental examination Z01.20 [facility] [address] [facility] [id number] [address] [place] [address] May, Polyneuropathy G62.9 [facility] [address] [facility] [id number] [address] [place] [address] Apr, Polyneuropathy G62.9 [facility] [address] [facility] [id number] [address] [place] [address] Apr, Polyneuropathy G62.9 [facility] [address] [facility] [id number] [address] [place] [address] Apr, Hypertension, benign I10 ; P olyneuropathy G62.9 and Anxiety F41.9 [facility] [address] [facility] [id number] [address] [place] [address] Apr, Primary insomnia F51.01 and Polyneuropathy G62.9 [facility] [address] [facility] [id number] [address] [place] [address] Apr, Primary insomnia F51.01 and Polyneuropathy G62.9 [facility] [address] [facility] [id number] [address] [place] [address] Mar, Primary insomnia F51.01 [facility] [address] [facility] [id number] [address] [place] [address] Mar, [facility] [address] [id number] [address] [place] [address], [place] [address] Mar, Polyneuropathy G62.9 [facility] [address] [id number] [address] [place] [address], [place] [address] Feb, Primary insomnia F51.01 [facility] [address] [id number] [address] [place] [address], [place] [address] Feb, [facility] [address] [id number] [address] [place] [address], [place] [address] Feb, [facility] [address] [id number] [address] [place] [address], [place] [address] Feb, Polyneuropathy G62.9 [facility] [address] [id number] [address] [place] [address], [place] [address] Feb, Primary insomnia F51.01 [facility] [address] [id number] [address] [place] [address], [place] [address] Jan, [facility] [address] [id number] [address] [place] [address], [place] [address] Jan, [facility] [address] [id number] [address] [place] [address], [place] [address] Dec, [facility] [address] [id number] [address] [place] [address] Dec, Primary insomnia F51.01 [facility] [address] [id number] [address] [place] [address], [place] [address] Dec, Primary insomnia F51.01 [facility] [address] [id number] [address] [place] [address], [place] [address] Dec, [facility] [address] [id number] [address] [place] [address] Dec, [facility] [address] [id number] [address] [place] [address] Dec, [facility] [address] [id number] [address] [place] [address] Dec, [facility] [address] [facility] [id number] [address] [place] [address] November, Primary insomnia F51.01 and Polyneuropathy G62.9 [facility] [address] [id number] [address] [place] [address] November, [facility] [address] [id number] [address] [place] [address] November, Abdominal pain, left lower q uadrant R10.32 [facility] [address] [facility] [id number] [address] [place] [address] November, [facility] [address] [facility] [id number] [address] [place] [address] Oct, [facility] [address] [facility] [id number] [address] [place] [address] Oct, Abdominal pain, left lower q uadrant R10.32 ; 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 and Neuropathy G62.9 [facility] [address] [facility] [id number] [address] [place] [address] Oct, [facility] [address] [facility] [id number] [address] [place] [address] Sep, [facility] [id number] [place] [id number] Sep, [facility] [address] [facility] [id number] [address] [place] [address] Sep, [facility] [address] [facility] [id number] [address] [place] [address] Aug, [facility] [address] [facility] [id number] [address] [place] [address] Aug, [facility] [address] [facility] [id number] [address] [place] [id number] Aug, Abdominal pain, left lower q uadrant R10.32 ; Neuropathy G62.9 and Anxiety F41.9 [facility] [address] [id number] [place] [id number] Jul, [facility] [address] [id number] [address] [place] [id number] Jul, [facility] [address] [id number] [address] [place] [id number] Jul, [facility] [address] [id number] [address] [place] [phone] Jul, [facility] [address] [id number] [address] [place] [phone] Jul, [facility] [address] [id number] [address] [place] [id number] Jun, [facility] [address] [id number] [address] [place] [phone] May, [facility] [address] [id number] [address] [place] [phone] May, [facility] [address] [id number] [address] [place] [phone] Apr, [facility] [address] [id number] [address] [place] [id number] Apr, Muscle spasms of both lower extremities M62.838 and Cellulitis, unspecified cellulitis site L03.90 [facility] [address] [id number] [address] [place] [id number] Apr, [facility] [address] [id number] [address] [place] [id number] Mar, Generalized abdominal pain R 10.84 [facility] [address] [id number] [address] [place] [phone] Mar, [facility] [address] [id number] [address] [place] [phone] 14 Mar, 2016 [facility] [address] [id number] [address] [place] [phone] 14 Mar, 2016 [facility] [address] [id number] [address] [place] [id number] 13 Mar, 2016 [facility] [address] [id number] [address] [place] [id number] 12 Mar, 2016 [facility] [address] [id number] [address] [place] [id number] 09 Mar, 2016 [facility] [address] [id number] [address] [place] [phone] 06 Mar, 2016 [facility] [address] [id number] [address] [place] [address] Feb, Other specified diseases of anus and rectum K62.89 [facility] [address] [id number] [address] [place] [address] Feb, [facility] [address] [id number] [address] [place] [address] Feb, Dizziness R42 [facility] [address] [id number] [address] [place] [address] Feb, [facility] [address] [id number] [address] [place] [address] Jan, Polyneuropathy G62.9 [facility] [address] [id number] [address] [place] [address] Jan, Other specified diseases of anus and rectum K62.89 [facility] [address] [id number] [address] [place] [address] Jan, [facility] [address] [id number] [address] [place] [address] Jan, [facility] [address] [id number] [address] [place] [address] Jan, [facility] [address] [id number] [address] [place] [address], [place] [address] Jan, Dizziness R42 [facility] [address] [id number] [address] [place] [address], [place] [address] Dec, [facility] [address] [id number] [address] [place] [address], [place] [address] Dec, [facility] [address] [id number] [address] [place] [address], [place] [address] Dec, [facility] [address] [id number] [address] [place] [address], [place] [address] Dec, Dizziness R42 [facility] [address] [id number] [address] [place] [address], [place] [address] November, [facility] [address] [id number] [address] [place] [address], [place] [address] Oct, [facility] [address] [id number] [address] [place] [address], [place] [address] Oct, [facility] [address] [id number] [address] [place] [address], [place] [address] Oct, [facility] [address] [id number] [address] [place] [address], [place] [address] Oct, [facility] [address] [id number] [address] [place] [address], [place] [address] Sep, [facility] [address] [id number] [address] [place] [address], [place] [address] Sep, Primary insomnia F51.01 [facility] [address] [id number] [address] [place] [address], [place] [address] Sep, Primary insomnia F51.01 [facility] [address] [id number] [address] [place] [address], [place] [address] Sep, [facility] [address] [id number] [address] [place] [address], [place] [address] Aug, [facility] [address] [address] Aug, [facility] [address] [address] Aug, Primary insomnia F51.01 ; Mo od disorder F39 ; Nausea and vomiting, unspecified intactability, vomiting of unspecified type R11.2 and Diarrhea R19.7 [facility] [address] [address] Aug, [facility] [address] [address] Aug, Folliculitis L73.9 [facility] [address] [address] Aug, [facility] [address] [address] Aug, [facility] [address] [address] Jul, Folliculitis L73.9 [facility] [address] [address] Jul, [facility] [address] [address] Jun, Folliculitis L73.9 [facility] [address] [address] Jun, [facility] [address] [address] May, Polyneuropathy G62.9 [facility] [address] [address] May, Other specified diseases of anus and rectum K62.89 [facility] [address] [address] May, [facility] [address] [id number] [address] [place] [address] May, Primary insomnia F51.01 [facility] [address] [facility] [id number] [address] [place] [address] May, [facility] [address] [facility] [id number] [address] [place] [address] May, [facility] [address] [id number] [address] [place] [address] Apr, Other specified diseases of anus and rectum K62.89 ; Chronic fatigue R53.82 ; Urinary tract infection, site not specified N39.0 and Enterococcus as the cause of diseases classified elsewhere B95.2 [facility] [address] [facility] [id number] [address] [place] [address] 16 Apr, 2015 [facility] [address] [facility] [id number] [address] [place] [address] 15 Apr, 2015 [facility] [address] [facility] [id number] [address] [place] [address] 14 Apr, 2015 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 [facility] [address] [facility] [id number] [address] [place] [address] 05 Apr, 2015 [facility] [address] [facility] [id number] [address] [place] [address] 26 Mar, 2015 [facility] [address] [facility] [id number] [address] [place] [address] 23 Mar, 2015 [facility] [address] [id number] [address] [place] [address] 17 Mar, 2015 [facility] [address] [facility] [id number] [address] [place] [address] 14 Mar, 2015 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 [facility] [address] [facility] [id number] [address] [place] [address] 12 Mar, 2015 [facility] [address] [facility] [id number] [address] [place] [address] Mar, [facility] [address] [id number] [address] [place] [address] Mar, [facility] [address] [id number] [address] [place] [address] Mar, [facility] [address] [id number] [address] [place] [address] Feb, [facility] [address] [id number] [address] [place] [address] Feb, [facility] [address] [id number] [address] [place] [address] Feb, [facility] [address] [id number] [address] [place] [address] Jan, [facility] [address] [id number] [address] [place] [address] Jan, Nausea 787.02 and Neuropathy 355.9 [facility] [address] [id number] [address] [place] [address] Jan, [facility] [address] [id number] [address] [place] [address] Jan, [facility] [address] [id number] [address] [place] [address] Jan, [facility] [address] [id number] [address] [place] [id number] Jan, Dental examination V72.2 [facility] [address] [id number] [address] [place] [address] Jan, [facility] [address] [id number] [address] [place] [address] Dec, [facility] [address] [id number] [address] [place] [address] Dec, [facility] [address] [id number] [address] [place] [address] Dec, Neuropathy 355.9 [facility] [address] [id number] [address] [place] [address], [place] [address] November, [facility] [address] [id number] [address] [place] [address], [place] [address] November, [facility] [address] [id number] [address] [place] [address], [place] [address] November, [facility] [address] [id number] [address] [place] [address], [place] [address] Oct, [facility] [address] [id number] [address] [place] [address], [place] [address] Oct, [facility] [address] [id number] [address] [place] [address], [place] [address] Sep, [facility] [address] [id number] [address] [place] [address], [place] [address] Sep, [facility] [address] [id number] [address] [place] [address], [place] [address] Sep, [facility] [address] [id number] [address] [place] [address], [place] [address] Sep, [facility] [address] [id number] [address] [place] [address], [place] [address] Sep, [facility] [address] [id number] [address] [place] [address], [place] [address] Sep, [facility] [address] [id number] [address] [place] [address], [place] [address] Sep, [facility] [address] [id number] [address] [place] [address], [place] [address] Sep, [facility] [address] [id number] [address] [place] [address], [place] [address] Aug, [facility] [address] [id number] [address] [place] [address], [place] [address] Aug, [facility] [address] [id number] [address] [place] [address], [place] [address] Aug, 2014 [facility] [address] [id number] [address] [place] [address], [place] [address] Aug, 2014 [facility] [address] [id number] [address] [place] [address], [place] [address] Aug, 2014 [facility] [address] [id number] [address] [place] [address], [place] [address] Aug, 2014 [facility] [address] [id number] [address] [place] [address], [place] [address] Aug, 2014 [facility] [address] [id number] [address] [place] [address], [place] [address] Aug, 2014 [facility] [address] [id number] [address] [place] [address], [place] [address] Jul, [facility] [address] [id number] [address] [place] [address], [place] [address] Jul, [facility] [address] [id number] [address] [place] [address], [place] [address] Jun, [facility] [address] [id number] [address] [place] [address], [place] [address] Jun, [facility] [address] [id number] [address] [place] [address], [place] [address] Jun, [facility] [address] [id number] [address] [place] [address], [place] [address] Jun, [facility] [address] [id number] [address] [place] [address], [place] [address] Jun, [facility] [address] [id number] [address] [place] [address], [place] [address] Jun, [facility] [address] [id number] [address] [place] [address], [place] [address] Jun, [facility] [address] [id number] [address] [place] [address], [place] [address] Jun, [facility] [address] [id number] [address] [place] [address], [place] [address] Jun, [facility] [address] [id number] [address] [place] [address], [place] [address] Jun, [facility] [address] [id number] [address] [place] [address], [place] [address] Jun, [facility] [address] [id number] [address] [place] [address], [place] [address] May, [facility] [address] [id number] [address] [place] [address], [place] [address] May, [facility] [address] [id number] [address] [place] [address], [place] [address] May, [facility] [address] [id number] [address] [place] [address], [place] [address] May, [facility] [address] [id number] [address] [place] [address], [place] [address] May, [facility] [address] [id number] [address] [place] [address], [place] [address] May, [facility] [address] [id number] [address] [place] [address], [place] [address] May, [facility] [address] [id number] [address] [place] [address], [place] [address] May, [facility] [address] [id number] [address] [place] [address], [place] [address] May, [facility] [address] [id number] [address] [place] [address], [place] [address] Apr, [facility] [address] [id number] [address] [place] [address], [place] [address] Apr, [facility] [address] [id number] [address] [place] [address], [place] [address] Apr, [facility] [address] [id number] [facility] [place] [address] Apr, [facility] [address] [id number] [address] [place] [address], [place] [address] Apr, [facility] [address] [id number] [address] [place] [address], [place] [address] Mar, [facility] [address] [id number] [address] [place] [address], [place] [address] Mar, [facility] [address] [id number] [address] [place] [address], [place] [address] Feb, [facility] [address] [id number] [address] [place] [address], [place] [address] Feb, [facility] [address] [id number] [address] [place] [address], [place] [address] Feb, [facility] [address] [id number] [address] [place] [address], [place] [address] Feb, [facility] [address] [id number] [address] [place] [address], [place] [address] Feb, [facility] [address] [id number] [address] [place] [address], [place] [address] Feb, [facility] [address] [id number] [address] [place] [address], [place] [address] Jan, [facility] [address] [id number] [address] [place] [address], [place] [address] Jan, [facility] [address] [id number] [address] [place] [address], [place] [address] Jan, [facility] [address] [id number] [address] [place] [address], [place] [address] Jan, [facility] [address] [id number] [address] [place] [address], [place] [address] Jan, [facility] [address] [id number] [address] [place] [address], [place] [address] Jan, [facility] [address] [id number] [facility] [place] [address] Jan, [facility] [address] [id number] [address] [place] [address], [place] [address] Jan, [facility] [address] [id number] [facility] [place] [address] Jan, [facility] [address] [id number] [address] [place] [address], [place] [address] Jan, [facility] [address] [id number] [address] [place] [address], [place] [address] Jan, [facility] [address] [id number] [address] [place] [address], [place] [address] Dec, [facility] [address] [id number] [address] [place] [address], [place] [address] Dec, [facility] [address] [id number] [address] [place] [address], [place] [address] Dec, [facility] [address] [id number] [address] [place] [address], [place] [address] Dec, [facility] [address] [id number] [address] [place] [address], [place] [address] Dec, [facility] [address] [id number] [address] [place] [address], [place] [address] Dec, [facility] [address] [id number] [address] [place] [address], [place] [address] November, [facility] [address] [id number] [address] [place] [address], [place] [address] November, [facility] [address] [id number] [address] [place] [address], [place] [address] November, [facility] [address] [id number] [address] [place] [address], [place] [address] November, [facility] [address] [id number] [address] [place] [address], [place] [address] November, [facility] [address] [id number] [address] [place] [address], [place] [address] November, [facility] [address] [id number] [address] [place] [address], [place] [address] Oct, [facility] [address] [id number] [address] [place] [address], [place] [address] Oct, [facility] [address] [id number] [address] [place] [address], [place] [address] Oct, [facility] [address] [id number] [address] [place] [address], [place] [address] Oct, [facility] [address] [id number] [address] [place] [address], [place] [address] Sep, [facility] [address] [id number] [address] [place] [address], [place] [address] Sep, [facility] [address] [id number] [address] [place] [address], [place] [address] Sep, [facility] [address] [id number] [address] [place] [address], [place] [address] Sep, [facility] [address] [id number] [address] [place] [address], [place] [address] Sep, [facility] [address] [id number] [address] [place] [address], [place] [address] Aug, [facility] [address] [id number] [address] [place] [address], [place] [address] Aug, [facility] [address] [id number] [address] [place] [address], [place] [address] Aug, [facility] [address] [id number] [address] [place] [address], [place] [address] Aug, [facility] [address] [id number] [address] [place] [address], [place] [address] 14 Aug, 2013 [facility] [address] [place] [facility] [id number] May, [facility] [address] [id number] [address] [place] [address], [place] [address] May, [facility] [address] [id number] [address] [place] [address], [place] [address] May, [facility] [address] [id number] [address] [place] [address], [place] [address] May, [facility] [address] [id number] [address] [place] [address], [place] [address] May, [facility] [address] [id number] [address] [place] [address], [place] [address] Apr, [facility] [address] [id number] [address] [place] [address], [place] [address] Apr, [facility] [address] [id number] [address] [place] [address], [place] [address] Apr, [facility] [address] [id number] [address] [place] [address], [place] [address] Apr, [facility] [address] [id number] [address] [place] [address], [place] [address] Apr, [facility] [address] [id number] [address] [place] [address], [place] [address] Apr, [facility] [address] [id number] [address] [place] [address], [place] [address] Apr, [facility] [address] [id number] [address] [place] [address], [place] [address] 28 Mar, 2013 [facility] [address] [id number] [address] [place] [address], [place] [address] Mar, [facility] [address] [id number] [address] [place] [address], [place] [address] 24 Mar, 2013 [facility] [address] [id number] [address] [place] [address], [place] [address] 16 Mar, 2013 [facility] [address] [id number] [address] [place] [address], [place] [address] Mar, [facility] [address] [id number] [address] [place] [address], [place] [address] Mar, [facility] [address] [id number] [address] [place] [address], [place] [address] Feb, [facility] [address] [id number] [address] [place] [address], [place] [address] Feb, [facility] [address] [id number] [address] [place] [address], [place] [address] Feb, [facility] [address] [id number] [address] [place] [address], [place] [address] Feb, [facility] [address] [id number] [address] [place] [address], [place] [address] Feb, [facility] [address] [id number] [address] [place] [address], [place] [address] Feb, [facility] [address] [id number] [address] [place] [address], [place] [address] Jan, [facility] [address] [id number] [address] [place] [address], [place] [address] Dec, [facility] [address] [id number] [address] [place] [address], [place] [address] Dec, [facility] [address] [id number] [address] [place] [address], [place] [address] Dec, [facility] [address] [id number] [address] [place] [address], [place] [address] Dec, [facility] [address] [id number] [address] [place] [address], [place] [address] Dec, [facility] [address] [id number] [address] [place] [address], [place] [address] Dec, [facility] [address] [id number] [address] [place] [address], [place] [address] 17 Dec, 2012 [facility] [address] [id number] [address] [place] [address], [place] [address] Dec, [facility] [address] [id number] [address] [place] [address], [place] [address] Dec, [facility] [facility] [address] [id number] [address] [place] [address], [place] [address] November, [facility] [address] [id number] [address] [place] [address], [place] [address] November, [facility] [address] [id number] [address] [place] [address], [place] [address] Oct, [facility] [address] [id number] [address] [place] [address], [place] [address] Sep, [facility] [address] [id number] [address] [place] [address], [place] [address] Sep, [facility] [address] [id number] [address] [place] [address], [place] [address] 15 Sep, 2012 [facility] [address] [id number] [address] [place] [address], [place] [address] Sep, [facility] [address] [id number] [address] [place] [address], [place] [address] Aug, [facility] [address] [id number] [address] [place] [address], [place] [address] Aug, [facility] [address] [id number] [address] [place] [address], [place] [address] Jul, [facility] [address] [id number] [address] [place] [address], [place] [address] Jul, [facility] [address] [id number] [address] [place] [address], [place] [address] Jul, [facility] [address] [id number] [address] [place] [address], [place] [address] Sep, [facility] [address] [facility] [id number] [address] [place] [address] Sep, [facility] [address] [facility] [id number] [address] [place] [address] Sep, IMMUNIZATIONS No Known Immunizations SOCIAL HISTORY [...] bowel obstruction, Dehydration -[facility] 01/01/17 Hospitalization History [facility]- UTI/Sepsis 01/18/[address] [facility] - infection 4 days 05/2018
--- OUTSIDE RECORDS SUMMARY | 2020-01-14 23:01 | XMS REPORT ---
Author Author Melvin BENTLEY Organization [facility] Address [address] [place] [address] Care Team Providers Care Chair Inspector And Leveler Name Role Phone LINDA BENTLEY Unavailable PROBLEMS Type Condition ICD9-CM Code DLA35-CQ Code Onset Dates Condition S tatus SNOMED Code Problem Incontinence of feces, unspecified fecal incontinence type R15.9 Active 13361542 Problem Primary insomnia F51.01 Active 193 808648 Problem Hydronephrosis with ureteral stricture, not else where classified N13.1 Active 26798275 Problem Chronic fatigue, unspecified R53.82 A ctive 951060898 Problem Hypertension, benign I10 Active 06993482 Problem Mood disorder F39 Active 238969 05 Problem Neuropathy G62.9 Active 329210822 Problem Chronic pain syndrome G89.4 Active 100399838 Problem Abdominal pain, left lower quadrant R10.32 Active 523866015 Problem 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 Active 821996822 Problem 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 300576623 Problem Anxiety F41.9 Active 92410959 Problem Polyneuropathy G62.9 Active 89415 000 Problem Malignant neoplasm of colon, unspecified part of colon C18.9 Active 779213777 Problem Attention to urostomy Z43.6 Active 438201198 ALLERGIES No Information ENCOUNTERS Encounter Location Date Diagnosis [facility] [address] [facility] [id number] [address] [place] [phone] 16 Oct, 2019 Attention to urostomy Z43.6 and Hypertension, benign I10 [facility] [address] [facility] [id number] [address] [place] [phone] 15 Oct, 2019 [facility] [address] [facility] [id number] [address] [place] [id number] 14 Oct, 2019 Neuropathy G62.9 ; Anxiety F 41.9 and Encounter for Medicare annual wellness exam Z00.00 [facility] [address] [id number] [address] [place] [address] 10 Sep, 2019 Neuropathy G62.9 ; Anxiety F 41.9 and Encounter for Medicare annual wellness exam Z00.00 [facility] [address] [id number] [address] [place] [phone] 12 Aug, 2019 Anxiety F41.9 ; Neuropathy G 62.9 and Encounter for Medicare annual wellness exam Z00.00 [facility] [address] [id number] [address] [place] [id number] 31 Jul, 2019 [facility] [address] [id number] [address] [place] [address] Jul, Primary insomnia F51.01 and Anxiety F41.9 [facility] [address] [id number] [address] [place] [address] 14 Jul, 2019 Primary insomnia F51.01 ; Ne uropathy G62.9 and Encounter for Medicare annual wellness exam Z00.00 [facility] [address] [id number] [address] [place] [address] Jun, Neuropathy G62.9 and Encount er for Medicare annual wellness exam Z00.00 [facility] [address] [id number] [address] [place] [address] 18 Jun, 2019 Primary insomnia F51.01 [facility] [address] [id number] [address] [place] [phone] 17 Jun, 2019 Primary insomnia F51.01 ; En counter for Medicare annual wellness exam Z00.00 and Neuropathy G62.9 [facility] [address] [id number] [address] [place] [phone] Jun, Malignant neoplasm of colon, unspecified part of colon C18.9 and Chronic fatigue, unspecified R53.82 [facility] [address] [id number] [address] [place] [address] May, Neuropathy G62.9 and Encount er for Medicare annual wellness exam Z00.00 [facility] [address] [id number] [address] [place] [id number] 15 May, 2019 Primary insomnia F51.01 [facility] [address] [id number] [address] [place] [phone] May, Neuropathy G62.9 and Anxiety F41.9 [facility] [address] [id number] [address] [place] [address] 30 Apr, 2019 Encounter for Medicare annua l wellness exam Z00.00 [facility] [address] [id number] [address] [place] [id number] 16 Apr, 2019 Neuropathy G62.9 and Encount er for Medicare annual wellness exam Z00.00 [facility] [address] [id number] [address] [place] [id number] 26 Mar, 2019 Neuropathy G62.9 and Primary insomnia F51.01 [facility] [address] [id number] [address] [place] [id number] Mar, [facility] [address] [id number] [address] [place] [id number] Feb, Primary insomnia F51.01 ; Ne uropathy G62.9 and Encounter for Medicare annual wellness exam Z00.00 [facility] [address] [id number] [address] [place] [phone] Feb, Neuropathy G62.9 and Encount er for Medicare annual wellness exam Z00.00 [facility] [address] [id number] [address] [place] [address] Feb, Primary insomnia F51.01 and High risk medication use Z79.899 [facility] [address] [id number] [address] [place] [phone] Jan, [facility] [address] [id number] [address] [place] [address] Jan, Neuropathy G62.9 [facility] [address] [id number] [address] [place] [phone] Dec, [facility] [address] [id number] [address] [place] [address] Dec, Encounter for Medicare annua l wellness exam Z00.00 and Neuropathy G62.9 [facility] [address] [id number] [address] [place] [address] November, [facility] [address] [id number] [address] [place] [address] November, Encounter for Medicare annua l wellness exam Z00.00 ; 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 ; Mood disorder F39 ; Chronic fatigue, unspecified R53.82 and Neuropathy G62.9 [facility] [address] [id number] [address] [place] [address] November, Neuropathy G62.9 [facility] [address] [id number] [address] [place] [address] Oct, Neuropathy G62.9 [facility] [address] [id number] [address] [place] [phone] Oct, Hypertension, benign I10 and Anxiety F41.9 [facility] [address] [id number] [address] [place] [phone] Oct, [facility] [address] [id number] [address] [place] [address] Oct, [facility] [address] [id number] [address] [place] [phone] Oct, [facility] [address] [id number] [address] [place] [address] Oct, Neuropathy G62.9 [facility] [address] [id number] [address] [place] [address] Sep, [facility] [address] [id number] [address] [place] [address] Sep, Neuropathy G62.9 [facility] [address] [id number] [address] [place] [id number] Sep, [facility] [address] [facility] [id number] [address] [place] [id number] Sep, H/O malignant carcinoid tumo r of 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 and Primary insomnia F51.01 [facility] [address] [id number] [address] [place] [address] Aug, [facility] [address] [id number] [address] [place] [address] Aug, Neuropathy G62.9 [facility] [address] [id number] [address] [place] [phone] Aug, [facility] [address] [facility] [id number] [address] [place] [id number] Jul, Non-recurrent acute suppurat francine otitis media of left ear without spontaneous rupture of tympanic membrane H66.002 [facility] [address] [facility] [id number] [address] [place] [id number] Jul, Neuropathy G62.9 [facility] [address] [facility] [id number] [address] [place] [address] Jun, [facility] [address] [facility] [id number] [address] [place] [phone] Jun, [facility] [address] [facility] [id number] [address] [place] [address] Jun, Neuropathy G62.9 [facility] [address] [facility] [id number] [address] [place] [id number] Jun, [facility] [address] [facility] [id number] [address] [place] [phone] Jun, [facility] [address] [facility] [id number] [address] [place] [id number] Jun, Lumbar neuritis M54.16 [facility] [address] [facility] [id number] [address] [place] [address] May, Neuropathy G62.9 [facility] [address] [place] [id number] [address] [place] [address] May, [facility] [address] [place] [id number] [address] [place] [id number] 05 May, 2018 Neuropathy G62.9 and Hyperte nsion, benign I10 [facility] [address] [place] [id number] [place] [address] Apr, Polyneuropathy G62.9 and Hyp ertension, benign I10 [facility] [address] [place] [id number] [place] [phone] 17 Mar, 2018 Chronic pain syndrome G89.4 and Hypertension, benign I10 [place] [address] [place] [id number] [place] [address] Mar, Polyneuropathy G62.9 and Hyp ertension, benign I10 [facility] [address] [place] [id number] [address] [place] [address] Feb, [facility] [address] [phone] Feb, Hypertension, benign I10 [facility] [address] [place] [id number] [place] [address] Feb, Hypertension, benign I10 ; P olyneuropathy G62.9 and Primary insomnia F51.01 [facility] [address] [place] [id number] [address] [place] [address] Jan, Hypertension, benign I10 and Polyneuropathy G62.9 [facility] [address] [place] [id number] [address] [place] [id number] Jan, Hypertension, benign I10 and Neuropathy G62.9 [facility] [address] [place] [id number] [address] [place] [phone] Jan, [facility] [address] [place] [id number] [address] [place] [id number] Dec, Polyneuropathy G62.9 [facility] [address] [id number] [address] [place] [phone] Dec, Mood disorder F39 [facility] [address] [id number] [address] [place] [address] November, Polyneuropathy G62.9 [facility] [address] [facility] [id number] [address] [place] [address] November, Medicare annual wellness vis it, initial Z00.00 [facility] [address] [id number] [address] [place] [address] November, Mood disorder F39 [facility] [address] [id number] [address] [place] [address] Oct, Polyneuropathy G62.9 [facility] [address] [facility] [id number] [address] [place] [address] Oct, [facility] [address] [facility] [id number] [address] [place] [address] Oct, [facility] [address] [facility] [id number] [address] [place] [address] Oct, Mood disorder F39 ; Attentio n to urostomy Z43.6 ; Chronic pain syndrome G89.4 and Polyneuropathy G62.9 [facility] [address] [facility] [id number] [address] [place] [address] Sep, Polyneuropathy G62.9 [facility] [address] [id number] [address] [place] [id number] Sep, [facility] [address] [id number] [address] [place] [address] Sep, Polyneuropathy G62.9 [facility] [address] [facility] [id number] [address] [place] [address] Aug, Polyneuropathy G62.9 [facility] [address] [facility] [id number] [address] [place] [address] Aug, Malignant neoplasm of colon, unspecified part of colon C18.9 and Polyneuropathy G62.9 [facility] [address] [facility] [id number] [address] [place] [address] Aug, Neuropathy G62.9 and Polyneu ropathy G62.9 [facility] [address] [facility] [id number] [address] [place] [address] Jul, Encounter for drug screening Z02.83 [facility] [address] [id number] [address] [place] [address] Jul, Polyneuropathy G62.9 [facility] [address] [facility] [id number] [address] [place] [phone] Jul, [facility] [address] [facility] [id number] [address] [place] [address] Jul, Neuropathy G62.9 and Anxiety F41.9 [facility] [address] [facility] [id number] [address] [place] [address] Jul, [facility] [address] [facility] [id number] [address] [place] [address] Jul, [facility] [address] [facility] [id number] [address] [place] [phone] Jul, [facility] [address] [facility] [id number] [address] [place] [address] Jul, Polyneuropathy G62.9 [facility] [address] [id number] [address] [place] [address] Jul, [facility] [address] [facility] [id number] [address] [place] [address] Jun, [facility] [address] [facility] [id number] [address] [place] [phone] Jun, [facility] [address] [facility] [id number] [address] [place] [address] Jun, [facility] [address] [id number] [place] [address] 07 Jun, 2017 Encounter for dental examina tion Z01.20 [facility] [address] [place] [id number] [address] [place] [address] Jun, Polyneuropathy G62.9 and Anx iety F41.9 [facility] [address] [place] [id number] [address] [place] [address] Jun, [facility] [address] [id number] [place] [address] May, Dental examination Z01.20 [facility] [address] [place] [id number] [address] [place] [address] May, Polyneuropathy G62.9 [place] [address] [place] [id number] [address] [place] [address] Apr, Polyneuropathy G62.9 [facility] [address] [place] [id number] [address] [place] [address] Apr, Polyneuropathy G62.9 [facility] [address] [place] [id number] [place] [address] Apr, Hypertension, benign I10 ; P olyneuropathy G62.9 and Anxiety F41.9 [place] [address] [place] [id number] [address] [place] [address] Apr, Primary insomnia F51.01 and Polyneuropathy G62.9 [facility] [address] [place] [id number] [address] [place] [address] Apr, Primary insomnia F51.01 and Polyneuropathy G62.9 [facility] [address] [place] [id number] [address] [place] [address] Mar, Primary insomnia F51.01 [facility] [address] [place] [id number] [address] [place] [address] Mar, [place] [address] [id number] [address] [place] [address], [place] [address] Mar, Polyneuropathy G62.9 [facility] [address] [id number] [address] [place] [address], [place] [address] Feb, Primary insomnia F51.01 [facility] [address] [id number] [address] [place] [address], [place] [address] Feb, [facility] [address] [id number] [address] [place] [address], [place] [address] Feb, [facility] [address] [id number] [address] [place] [address], [place] [address] Feb, Polyneuropathy G62.9 [facility] [address] [id number] [address] [place] [address], [place] [address] Feb, Primary insomnia F51.01 [facility] [address] [id number] [address] [place] [address], [place] [address] Jan, [facility] [address] [id number] [address] [place] [address], [place] [address] Jan, [facility] [address] [id number] [address] [place] [address], [place] [address] Dec, [facility] [address] [id number] [address] [place] [address] Dec, Primary insomnia F51.01 [facility] [address] [id number] [address] [place] [address], [place] [address] Dec, Primary insomnia F51.01 [facility] [address] [id number] [address] [place] [address], [place] [address] Dec, [facility] [address] [id number] [address] [place] [address] Dec, [facility] [address] [id number] [address] [place] [address] Dec, [facility] [address] [id number] [address] [place] [address] Dec, [facility] [address] [facility] [id number] [address] [place] [address] November, Primary insomnia F51.01 and Polyneuropathy G62.9 [facility] [address] [id number] [address] [place] [address] November, [facility] [address] [facility] [id number] [address] [place] [address] November, Abdominal pain, left lower q uadrant R10.32 [facility] [address] [facility] [id number] [address] [place] [address] November, [facility] [address] [facility] [id number] [address] [place] [address] Oct, [facility] [address] [facility] [id number] [address] [place] [address] Oct, Abdominal pain, left lower q uadrant R10.32 ; 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 and Neuropathy G62.9 [facility] [address] [facility] [id number] [address] [place] [address] Oct, [facility] [address] [facility] [id number] [address] [place] [address] Sep, [id number] [id number] [place] [id number] Sep, [facility] [address] [facility] [id number] [address] [place] [address] Sep, [facility] [address] [facility] [id number] [address] [place] [address] Aug, [facility] [address] [facility] [id number] [address] [place] [phone] Aug, [facility] [address] [facility] [id number] [address] [place] [address] Aug, Abdominal pain, left lower q uadrant R10.32 ; Neuropathy G62.9 and Anxiety F41.[address] [facility] [id number] [place] [address] Jul, [facility] [address] [id number] [address] [place] [address] Jul, [facility] [address] [id number] [address] [place] [address] Jul, [facility] [address] [id number] [address] [place] [address] Jul, [facility] [address] [id number] [address] [place] [phone] Jul, [facility] [address] [id number] [address] [place] [phone] Jun, [facility] [address] [id number] [address] [place] [phone] May, [facility] [address] [id number] [address] [place] [phone] May, [facility] [address] [id number] [address] [place] [id number] Apr, [facility] [address] [facility] [id number] [address] [place] [id number] Apr, Muscle spasms of both lower extremities M62.838 and Cellulitis, unspecified cellulitis site L03.90 [facility] [address] [id number] [address] [place] [id number] Apr, [facility] [address] [id number] [address] [place] [id number] 23 Mar, 2016 Generalized abdominal pain R 10.84 [facility] [address] [id number] [address] [place] [id number] 20 Mar, 2016 [facility] [address] [facility] [id number] [address] [place] [id number] 14 Mar, 2016 [facility] [address] [id number] [address] [place] [phone] 14 Mar, 2015 [facility] [address] [id number] [address] [place] [phone] 13 Mar, 2016 [facility] [address] [id number] [address] [place] [id number] 12 Mar, 2016 [facility] [address] [id number] [address] [place] [id number] 09 Mar, 2016 [facility] [address] [id number] [address] [place] [phone] 06 Mar, 2016 [facility] [address] [id number] [address] [place] [phone] Feb, Other specified diseases of anus and rectum K62.89 [facility] [address] [id number] [address] [place] [id number] Feb, [facility] [address] [id number] [address] [place] [phone] Feb, Dizziness R42 [facility] [address] [id number] [address] [place] [id number] Feb, [facility] [address] [id number] [address] [place] [phone] Jan, Polyneuropathy G62.9 [facility] [address] [id number] [address] [place] [id number] Jan, Other specified diseases of anus and rectum K62.89 [facility] [address] [id number] [address] [place] [phone] Jan, [facility] [address] [id number] [address] [place] [address] [id number] 16 Jan, 2016 [facility] [address] [id number] [address] [place] [address] 15 Jan, 2016 [facility] [address] [id number] [address] [place] [address] Jan, Dizziness R42 [facility] [address] [id number] [address] [place] [address], [place] [address] Dec, [facility] [address] [id number] [address] [place] [address], [place] [address] Dec, [facility] [address] [id number] [address] [place] [address], [place] [address] Dec, [facility] [address] [id number] [address] [place] [address], [place] [address] Dec, Dizziness R42 [facility] [address] [id number] [address] [place] [address], [place] [address] November, [facility] [address] [id number] [address] [place] [address], [place] [address] Oct, [facility] [address] [id number] [address] [place] [address], [place] [address] Oct, [facility] [address] [id number] [address] [place] [address], [place] [address] Oct, [facility] [address] [id number] [address] [place] [address], [place] [address] Oct, [facility] [address] [id number] [address] [place] [address], [place] [address] Sep, [facility] [address] [id number] [address] [place] [address], [place] [address] Sep, Primary insomnia F51.01 [facility] [address] [id number] [address] [place] [address], [place] [address] Sep, Primary insomnia F51.01 [facility] [address] [id number] [address] [place] [address], [place] [address] Sep, [facility] [address] [id number] [address] [place] [address], [place] [address] Aug, [facility] [address] [id number] [place] [address] Aug, [facility] [address] [id number] [address] [place] [address] Aug, Primary insomnia F51.01 ; Mo od disorder F39 ; Nausea and vomiting, unspecified intactability, vomiting of unspecified type R11.2 and Diarrhea R19.7 [facility] [address] [id number] [address] [place] [address] Aug, [facility] [address] [id number] [address] [place] [address] Aug, Folliculitis L73.9 [facility] [address] [address] Aug, [facility] [id number] [place] [address] Aug, [facility] [id number] [place] [address] Jul, Folliculitis L73.9 [facility] [address] [id number] [address] [place] [address] Jul, [facility] [address] [address] Jun, Folliculitis L73.9 [facility] [address] [id number] [address] [place] [address] Jun, [facility] [address] [id number] [address] [place] [address] May, Polyneuropathy G62.9 [facility] [address] [id number] [address] [place] [address] May, Other specified diseases of anus and rectum K62.89 [facility] [address] [id number] [address] [place] [address] May, [facility] [id number] [place] [address] May, Primary insomnia F51.01 [facility] [address] [id number] [address] [place] [address] May, [facility] [address] [id number] [address] [place] [address] May, [facility] [address] [id number] [address] [place] [address] Apr, Other specified diseases of anus and rectum K62.89 ; Chronic fatigue R53.82 ; Urinary tract infection, site not specified N39.0 and Enterococcus as the cause of diseases classified elsewhere B95.2 [facility] [address] [id number] [address] [place] [address] 16 Apr, 2015 [facility] [address] [id number] [address] [place] [address] 15 Apr, 2015 [facility] [address] [id number] [address] [place] [address] Apr, 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 [facility] [address] [id number] [address] [place] [address] 05 Apr, 2015 [facility] [address] [id number] [address] [place] [address] 26 Mar, 2015 [facility] [address] [id number] [address] [place] [id number] 23 Mar, 2015 [facility] [address] [id number] [address] [place] [address] 17 Mar, 2015 [facility] [address] [id number] [address] [place] [address] 14 Mar, 2015 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 [facility] [address] [id number] [address] [place] [address] 12 Mar, 2015 [facility] [address] [id number] [address] [place] [address] 11 Mar, 2015 [facility] [address] [id number] [address] [place] [address] Mar, [facility] [address] [id number] [address] [place] [address] Mar, [facility] [address] [id number] [address] [place] [address] Feb, [facility] [address] [id number] [address] [place] [address] Feb, [facility] [address] [id number] [address] [place] [address] Feb, [facility] [address] [id number] [address] [place] [address] Jan, [facility] [address] [id number] [address] [place] [address] Jan, Nausea 787.02 and Neuropathy 355.9 [facility] [address] [id number] [address] [place] [address] Jan, [facility] [address] [id number] [address] [place] [address] Jan, [facility] [address] [id number] [address] [place] [address] Jan, [facility] [address] [id number] [address] [place] [id number] Jan, Dental examination V72.2 [facility] [address] [id number] [address] [place] [address] Jan, [facility] [address] [id number] [address] [place] [address] Dec, [facility] [address] [id number] [address] [place] [id number] Dec, [facility] [address] [id number] [address] [place] [address] Dec, Neuropathy 355.9 [facility] [address] [id number] [address] [place] [address], [place] [address] November, [facility] [address] [id number] [address] [place] [address], [place] [address] November, [facility] [address] [id number] [address] [place] [address], [place] [address] November, [facility] [address] [id number] [address] [place] [address], [place] [address] Oct, [facility] [address] [id number] [address] [place] [address], [place] [address] Oct, [facility] [address] [id number] [address] [place] [address], [place] [address] Sep, [facility] [address] [id number] [address] [place] [address], [place] [address] Sep, [facility] [address] [id number] [address] [place] [address], [place] [address] Sep, [facility] [address] [id number] [address] [place] [address], [place] [address] Sep, [facility] [address] [id number] [address] [place] [address], [place] [address] Sep, [facility] [address] [id number] [address] [place] [address], [place] [address] Sep, [facility] [address] [id number] [address] [place] [address], [place] [address] Sep, [facility] [address] [id number] [address] [place] [address], [place] [address] Sep, [facility] [address] [id number] [address] [place] [address], [place] [address] Aug, [facility] [address] [id number] [address] [place] [address], [place] [address] Aug, [facility] [address] [id number] [address] [place] [address], [place] [address] Aug, 2014 [facility] [address] [id number] [address] [place] [address], [place] [address] Aug, 2014 [facility] [address] [id number] [address] [place] [address], [place] [address] Aug, 2014 [facility] [address] [id number] [address] [place] [address], [place] [address] Aug, 2014 [facility] [address] [id number] [address] [place] [address], [place] [address] Aug, 2014 [facility] [address] [id number] [address] [place] [address], [place] [address] Aug, [facility] [address] [id number] [address] [place] [address], [place] [address] Jul, [facility] [address] [id number] [address] [place] [address], [place] [address] Jul, [facility] [address] [id number] [address] [place] [address], [place] [address] Jun, [facility] [address] [id number] [address] [place] [address], [place] [address] Jun, [facility] [address] [id number] [address] [place] [address], [place] [address] Jun, [facility] [address] [id number] [address] [place] [address], [place] [address] Jun, [facility] [address] [id number] [address] [place] [address], [place] [address] Jun, [facility] [address] [id number] [address] [place] [address], [place] [address] Jun, [facility] [address] [id number] [address] [place] [address], [place] [address] Jun, [facility] [address] [id number] [address] [place] [address], [place] [address] Jun, [facility] [address] [id number] [address] [place] [address], [place] [address] Jun, [facility] [address] [id number] [address] [place] [address], [place] [address] Jun, [facility] [address] [id number] [address] [place] [address], [place] [address] Jun, [facility] [address] [id number] [address] [place] [address], [place] [address] May, [facility] [address] [id number] [address] [place] [address], [place] [address] May, [facility] [address] [id number] [address] [place] [address], [place] [address] May, [facility] [address] [id number] [address] [place] [address], [place] [address] May, [facility] [address] [id number] [address] [place] [address], [place] [address] May, [facility] [address] [id number] [address] [place] [address], [place] [address] May, [facility] [address] [id number] [address] [place] [address], [place] [address] May, [facility] [address] [id number] [address] [place] [address], [place] [address] May, [facility] [address] [id number] [address] [place] [address], [place] [address] May, [facility] [address] [id number] [address] [place] [address], [place] [address] Apr, [facility] [address] [id number] [address] [place] [address], [place] [address] Apr, [facility] [address] [id number] [address] [place] [address], [place] [address] Apr, [facility] [address] [id number] [address] [place] [address], [place] [address] Apr, [facility] [address] [id number] [facility] [place] [address] Apr, [facility] [address] [id number] [address] [place] [address], [place] [address] Mar, [facility] [address] [id number] [address] [place] [address], [place] [address] Mar, [facility] [address] [id number] [address] [place] [address], [place] [address] Feb, [facility] [address] [id number] [address] [place] [address], [place] [address] Feb, [facility] [address] [id number] [address] [place] [address], [place] [address] Feb, [facility] [address] [id number] [address] [place] [address], [place] [address] Feb, [facility] [address] [id number] [address] [place] [address], [place] [address] Feb, [facility] [address] [id number] [address] [place] [address], [place] [address] Feb, [facility] [address] [id number] [address] [place] [address], [place] [address] Jan, [facility] [address] [id number] [address] [place] [address], [place] [address] Jan, [facility] [address] [id number] [address] [place] [address], [place] [address] Jan, [facility] [address] [id number] [address] [place] [address], [place] [address] Jan, [facility] [address] [id number] [address] [place] [address], [place] [address] Jan, [facility] [address] [id number] [address] [place] [address], [place] [address] Jan, [facility] [address] [id number] [address] [place] [address], [place] [address] Jan, [facility] [address] [id number] [facility] [place] [address] Jan, [facility] [address] [id number] [facility] [place] [address] Jan, [facility] [address] [id number] [facility] [place] [address] Jan, [facility] [address] [id number] [address] [place] [address], [place] [address] Jan, [facility] [address] [id number] [address] [place] [address], [place] [address] Dec, [facility] [address] [id number] [address] [place] [address], [place] [address] Dec, [facility] [address] [id number] [address] [place] [address], [place] [address] Dec, [facility] [address] [id number] [address] [place] [address], [place] [address] Dec, [facility] [address] [id number] [address] [place] [address], [place] [address] Dec, [facility] [address] [id number] [address] [place] [address], [place] [address] Dec, [facility] [address] [id number] [address] [place] [address], [place] [address] November, [facility] [address] [id number] [address] [place] [address], [place] [address] November, [facility] [address] [id number] [address] [place] [address], [place] [address] November, [facility] [address] [id number] [address] [place] [address], [place] [address] November, [facility] [address] [id number] [address] [place] [address], [place] [address] November, [facility] [address] [id number] [facility] [place] [address] November, [facility] [address] [id number] [facility] [place] [address] Oct, [facility] [address] [id number] [facility] [place] [address] Oct, [facility] [address] [id number] [address] [place] [address], [place] [address] Oct, [facility] [address] [id number] [address] [place] [address], [place] [address] Oct, [facility] [address] [id number] [address] [place] [address], [place] [address] Sep, [facility] [address] [id number] [address] [place] [address], [place] [address] Sep, [facility] [address] [id number] [address] [place] [address], [place] [address] Sep, [facility] [address] [id number] [address] [place] [address], [place] [address] Sep, [facility] [address] [id number] [address] [place] [address], [place] [address] Sep, [facility] [address] [id number] [address] [place] [address], [place] [address] Aug, [facility] [address] [id number] [address] [place] [address], [place] [address] Aug, [facility] [address] [id number] [address] [place] [address], [place] [address] Aug, [facility] [address] [id number] [address] [place] [address], [place] [address] 17 Aug, 2013 [facility] [address] [id number] [address] [place] [address], [place] [address] 14 Aug, 2013 [facility] [address] [place] [id number] May, [facility] [address] [id number] [address] [place] [address], [place] [address] May, [facility] [address] [id number] [address] [place] [address] May, [facility] [address] [id number] [address] [place] [address], [place] [address] May, [facility] [address] [id number] [address] [place] [address] May, [facility] [address] [id number] [address] [place] [address], [place] [address] Apr, [facility] [address] [id number] [address] [place] [address] Apr, [facility] [address] [id number] [address] [place] [address], [place] [address] Apr, [facility] [address] [id number] [address] [place] [id number] Apr, [facility] [address] [id number] [address] [place] [id number] Apr, [facility] [address] [id number] [address] [place] [id number] Apr, [facility] [address] [id number] [address] [place] [id number] Apr, [facility] [address] [id number] [address] [place] [id number] 28 Mar, 2013 [facility] [address] [id number] [address] [place] [id number] 25 Mar, 2013 [facility] [address] [id number] [address] [place] [id number] 24 Mar, 2013 [facility] [address] [id number] [address] [place] [id number] 16 Mar, 2013 [facility] [address] [id number] [address] [place] [address], [place] [address] Mar, [facility] [address] [id number] [address] [place] [address], [place] [address] Mar, [facility] [address] [id number] [address] [place] [address], [place] [address] Feb, [facility] [address] [id number] [address] [place] [address], [place] [address] Feb, [facility] [address] [id number] [address] [place] [address], [place] [address] Feb, [facility] [address] [id number] [address] [place] [address], [place] [address] Feb, [facility] [address] [id number] [address] [place] [address], [place] [address] Feb, [facility] [address] [id number] [address] [place] [address], [place] [address] Feb, [facility] [address] [id number] [address] [place] [address], [place] [address] Jan, [facility] [address] [id number] [address] [place] [address], [place] [address] Dec, [facility] [address] [id number] [address] [place] [address], [place] [address] Dec, [facility] [address] [id number] [address] [place] [address], [place] [address] Dec, [facility] [address] [id number] [address] [place] [address], [place] [address] Dec, [facility] [address] [id number] [address] [place] [address], [place] [address] Dec, [facility] [address] [id number] [address] [place] [address], [place] [address] 18 Dec, 2012 [facility] [address] [id number] [address] [place] [address], [place] [address] 17 Dec, 2012 [facility] [address] [id number] [address] [place] [address], [place] [address] Dec, [facility] [address] [id number] [address] [place] [address], [place] [address] Dec, [facility] [address] [id number] [address] [place] [address], [place] [address] November, [facility] [address] [id number] [address] [place] [address], [place] [address] November, [facility] [address] [id number] [address] [place] [address], [place] [address] Oct, [facility] [address] [id number] [address] [place] [address], [place] [address] Sep, [facility] [address] [id number] [address] [place] [address], [place] [address] Sep, [facility] [address] [id number] [address] [place] [address], [place] [address] Sep, [facility] [address] [id number] [address] [place] [address], [place] [address] Sep, [facility] [address] [id number] [address] [place] [address], [place] [address] Aug, [facility] [address] [id number] [address] [place] [address], [place] [address] Aug, [facility] [address] [id number] [address] [place] [address], [place] [address] Jul, [facility] [facility] [address] [id number] [address] [place] [address], [place] [address] Jul, [facility] [address] [id number] [address] [place] [address], [place] [address] Jul, [facility] [address] [id number] [address] [place] [address], [place] [address] Sep, [facility] [address] [id number] [address] [place] [id number] Sep, [facility] [address] [facility] [id number] [address] [address] Sep, IMMUNIZATIONS No Known Immunizations SOCIAL HISTORY Never Assessed REASON FOR VISIT PLAN OF CARE VITAL SIGNS MEDICATIONS No Known Medications RESULTS No Results PROCEDURES No Known [...] bowel obstruction, Dehydration -[facility] 01/01/17 Hospitalization History [facility]- UTI/Sepsis 01/18/2018 Hospitalization History [facility] - infection 4 days 05/2018
--- OUTSIDE RECORDS SUMMARY | 2020-01-14 23:01 | XMS REPORT ---
Author Author Melvin BENTLEY Organization [facility] Address [address] [place] [address] Care Team Providers Care Information Resource Consultant Name Role Phone LINDA BENTLEY Unavailable PROBLEMS Type Condition ICD9-CM Code MCA11-KK Code Onset Dates Condition S tatus SNOMED Code Problem Incontinence of feces, unspecified fecal incontinence type R15.9 Active 85127555 Problem Primary insomnia F51.01 Active 193 745163 Problem Hydronephrosis with ureteral stricture, not else where classified N13.1 Active 32333165 Problem Chronic fatigue, unspecified R53.82 A ctive 928183118 Problem Hypertension, benign I10 Active 86064521 Problem Mood disorder F39 Active 608270 05 Problem Neuropathy G62.9 Active 841136899 Problem Chronic pain syndrome G89.4 Active 845275119 Problem Abdominal pain, left lower quadrant R10.32 Active 431204118 Problem 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 Active 422374873 Problem 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 881577948 Problem Anxiety F41.9 Active 43461435 Problem Polyneuropathy G62.9 Active 38547 000 Problem Malignant neoplasm of colon, unspecified part of colon C18.9 Active 037506326 Problem Attention to urostomy Z43.6 Active 219205230 ALLERGIES No Information ENCOUNTERS Encounter Location Date Diagnosis [facility] [address] [facility] [id number] [address] [place] [phone] November, Attention to urostomy Z43.6 [facility] [address] [place] [id number] [address] [place] [phone] Oct, Attention to urostomy Z43.6 and Hypertension, benign I10 [facility] [address] [facility] [id number] [address] [place] [phone] Oct, [facility] [address] [place] [id number] [address] [place] [phone] 10 Sep, 2019 Neuropathy G62.9 ; Anxiety F 41.9 and Encounter for Medicare annual wellness exam Z00.00 [place] [address] [id number] [address] [place] [address] 12 Aug, 2019 Anxiety F41.9 ; Neuropathy G 62.9 and Encounter for Medicare annual wellness exam Z00.00 [place] [address] [id number] [address] [place] [phone] 31 Jul, 2019 [place] [address] [id number] [address] [place] [phone] Jul, Primary insomnia F51.01 and Anxiety F41.9 [place] [address] [id number] [address] [place] [phone] 14 Jul, 2019 Primary insomnia F51.01 ; Ne uropathy G62.9 and Encounter for Medicare annual wellness exam Z00.00 [place] [address] [id number] [address] [place] [phone] 23 Jun, 2019 Neuropathy G62.9 and Encount er for Medicare annual wellness exam Z00.00 [place] [address] [id number] [address] [place] [phone] 18 Jun, 2019 Primary insomnia F51.01 [place] [address] [id number] [address] [place] [phone] 17 Jun, 2019 Primary insomnia F51.01 ; En counter for Medicare annual wellness exam Z00.00 and Neuropathy G62.9 [place] [address] [id number] [address] [place] [phone] Jun, Malignant neoplasm of colon, unspecified part of colon C18.9 and Chronic fatigue, unspecified R53.82 [place] [address] [id number] [address] [place] [phone] May, Neuropathy G62.9 and Encount er for Medicare annual wellness exam Z00.00 [place] [address] [id number] [address] [place] [id number] 15 May, 2019 Primary insomnia F51.01 [facility] [address] [id number] [address] [place] [phone] May, Neuropathy G62.9 and Anxiety F41.9 [facility] [address] [id number] [address] [place] [phone] 30 Apr, 2019 Encounter for Medicare annua l wellness exam Z00.00 [facility] [address] [id number] [address] [place] [id number] 16 Apr, 2019 Neuropathy G62.9 and Encount er for Medicare annual wellness exam Z00.00 [facility] [address] [id number] [address] [place] [phone] 26 Mar, 2019 Neuropathy G62.9 and Primary insomnia F51.01 [facility] [address] [id number] [address] [place] [phone] Mar, [facility] [address] [id number] [address] [place] [phone] Feb, Primary insomnia F51.01 ; Ne uropathy G62.9 and Encounter for Medicare annual wellness exam Z00.00 [facility] [address] [id number] [address] [place] [phone] 06 Feb, 2019 Neuropathy G62.9 and Encount er for Medicare annual wellness exam Z00.00 [facility] [address] [id number] [address] [place] [phone] Feb, Primary insomnia F51.01 and High risk medication use Z79.899 [facility] [address] [id number] [address] [place] [phone] Jan, [facility] [address] [id number] [address] [place] [phone] Jan, Neuropathy G62.9 [facility] [address] [id number] [address] [place] [phone] Dec, [facility] [address] [id number] [address] [place] [phone] Dec, Encounter for Medicare annua l wellness exam Z00.00 and Neuropathy G62.9 [facility] [address] [id number] [address] [place] [phone] November, [facility] [address] [id number] [address] [place] [phone] November, Encounter for Medicare annua l wellness exam Z00.00 ; 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 ; Mood disorder F39 ; Chronic fatigue, unspecified R53.82 and Neuropathy G62.9 [facility] [address] [id number] [address] [place] [address] November, Neuropathy G62.9 [facility] [address] [id number] [address] [place] [phone] Oct, Neuropathy G62.9 [facility] [address] [id number] [address] [place] [phone] Oct, Hypertension, benign I10 and Anxiety F41.9 [facility] [address] [id number] [address] [place] [phone] Oct, [facility] [address] [id number] [address] [place] [phone] Oct, [facility] [address] [id number] [address] [place] [phone] Oct, [facility] [address] [id number] [address] [place] [phone] Oct, Neuropathy G62.9 [facility] [address] [id number] [address] [place] [phone] Sep, [facility] [address] [id number] [address] [place] [address] Sep, Neuropathy G62.9 [facility] [address] [id number] [address] [place] [phone] Sep, [facility] [address] [id number] [address] [place] [address] Sep, H/O malignant carcinoid tumo r of 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 and Primary insomnia F51.01 [facility] [address] [id number] [address] [place] [phone] Aug, [facility] [address] [id number] [address] [place] [phone] Aug, Neuropathy G62.9 [facility] [address] [id number] [address] [place] [phone] Aug, [facility] [address] [facility] [id number] [address] [place] [phone] Jul, Non-recurrent acute suppurat francine otitis media of left ear without spontaneous rupture of tympanic membrane H66.002 [facility] [address] [facility] [id number] [address] [place] [phone] Jul, Neuropathy G62.9 [facility] [address] [facility] [id number] [address] [place] [phone] Jun, [facility] [address] [facility] [id number] [address] [place] [phone] Jun, [facility] [address] [facility] [id number] [address] [place] [phone] Jun, Neuropathy G62.9 [facility] [address] [facility] [id number] [address] [place] [phone] Jun, [facility] [address] [facility] [id number] [address] [place] [address] Jun, [facility] [address] [facility] [id number] [address] [place] [address] Jun, Lumbar neuritis M54.16 [facility] [address] [facility] [id number] [address] [place] [address] May, Neuropathy G62.9 [facility] [address] [phone] May, [facility] [address] [address] 05 May, 2018 Neuropathy G62.9 and Hyperte nsion, benign I10 [facility] [address] [address] 09 Apr, 2018 Polyneuropathy G62.9 and Hyp ertension, benign I10 [facility] [address] [address] 17 Mar, 2018 Chronic pain syndrome G89.4 and Hypertension, benign I10 [place] [address] [id number] 11 Mar, 2018 Polyneuropathy G62.9 and Hyp ertension, benign I10 [place] [address] [address] Feb, [facility] [address] [address] Feb, Hypertension, benign I10 [place] [address] [address] Feb, Hypertension, benign I10 ; P olyneuropathy G62.9 and Primary insomnia F51.01 [place] [address] [address] Jan, Hypertension, benign I10 and Polyneuropathy G62.9 [facility] [address] [place] [id number] [address] [place] [phone] Jan, Hypertension, benign I10 and Neuropathy G62.9 [facility] [address] [place] [id number] [address] [place] [phone] Jan, [facility] [address] [address] Dec, Polyneuropathy G62.9 [facility] [address] [facility] [id number] [address] [place] [phone] Dec, Mood disorder F39 [facility] [address] [facility] [id number] [address] [place] [phone] November, Polyneuropathy G62.9 [facility] [address] [facility] [id number] [address] [place] [phone] November, Medicare annual wellness vis it, initial Z00.00 [facility] [address] [facility] [id number] [address] [place] [address] November, Mood disorder F39 [facility] [address] [facility] [id number] [address] [place] [phone] Oct, Polyneuropathy G62.9 [facility] [address] [facility] [id number] [address] [place] [phone] Oct, [facility] [address] [facility] [id number] [address] [place] [phone] Oct, [facility] [address] [facility] [id number] [address] [place] [phone] Oct, Mood disorder F39 ; Attentio n to urostomy Z43.6 ; Chronic pain syndrome G89.4 and Polyneuropathy G62.9 [facility] [address] [facility] [id number] [address] [place] [id number] Sep, Polyneuropathy G62.9 [facility] [address] [facility] [id number] [address] [place] [address] Sep, [facility] [address] [facility] [id number] [address] [place] [address] Sep, Polyneuropathy G62.9 [facility] [address] [facility] [id number] [address] [place] [address] Aug, Polyneuropathy G62.9 [facility] [address] [facility] [id number] [address] [place] [phone] Aug, Malignant neoplasm of colon, unspecified part of colon C18.9 and Polyneuropathy G62.9 [facility] [address] [facility] [id number] [address] [place] [phone] Aug, Neuropathy G62.9 and Polyneu ropathy G62.9 [facility] [address] [facility] [id number] [address] [place] [phone] Jul, Encounter for drug screening Z02.83 [facility] [address] [facility] [id number] [address] [place] [phone] Jul, Polyneuropathy G62.9 [facility] [address] [facility] [id number] [address] [place] [phone] Jul, [facility] [address] [facility] [id number] [address] [place] [phone] Jul, Neuropathy G62.9 and Anxiety F41.9 [facility] [address] [facility] [id number] [address] [place] [phone] Jul, [facility] [address] [facility] [id number] [address] [place] [phone] Jul, [facility] [address] [facility] [id number] [address] [place] [phone] Jul, [facility] [address] [facility] [id number] [address] [place] [address] Jul, Polyneuropathy G62.9 [facility] [address] [facility] [id number] [address] [place] [phone] Jul, [facility] [address] [facility] [id number] [address] [place] [phone] Jun, [facility] [address] [facility] [id number] [address] [place] [phone] Jun, [facility] [address] [facility] [id number] [address] [place] [phone] Jun, [facility] [address] [facility] [id number] [address] [place] [address] 07 Jun, 2017 Encounter for dental examina tion Z01.20 [facility] [address] [place] [id number] [address] [place] [address] Jun, Polyneuropathy G62.9 and Anx iety F41.9 [facility] [address] [place] [id number] [address] [place] [phone] Jun, [facility] [address] [place] [address] [place] [address] May, Dental examination Z01.20 [facility] [address] [address] May, Polyneuropathy G62.9 [facility] [address] [place] [id number] [place] [address] Apr, Polyneuropathy G62.9 [facility] [address] [address] Apr, Polyneuropathy G62.9 [facility] [address] [address] Apr, Hypertension, benign I10 ; P olyneuropathy G62.9 and Anxiety F41.9 [facility] [address] [address] Apr, Primary insomnia F51.01 and Polyneuropathy G62.9 [facility] [address] [place] [id number] [address] [place] [phone] Apr, Primary insomnia F51.01 and Polyneuropathy G62.9 [facility] [address] [place] [id number] [address] [place] [address] Mar, Primary insomnia F51.01 [facility] [address] [place] [id number] [address] [place] [address] Mar, [facility] [address] [place] [id number] [address] [place] [address] Mar, Polyneuropathy G62.9 [facility] [address] [id number] [address] [place] [phone] Feb, Primary insomnia F51.01 [facility] [address] [id number] [address] [place] [address], [place] [address] Feb, [facility] [address] [id number] [address] [place] [address], [place] [address] Feb, [facility] [address] [id number] [address] [place] [address] Feb, Polyneuropathy G62.9 [facility] [address] [id number] [address] [place] [address] Feb, Primary insomnia F51.01 [facility] [address] [id number] [address] [place] [address], [place] [address] Jan, [facility] [address] [id number] [address] [place] [phone] Jan, [facility] [address] [id number] [address] [place] [phone] Dec, [facility] [address] [id number] [address] [place] [address] Dec, Primary insomnia F51.01 [facility] [address] [id number] [address] [place] [address] Dec, Primary insomnia F51.01 [facility] [address] [id number] [address] [place] [id number] Dec, [facility] [address] [id number] [address] [place] [address] Dec, [facility] [address] [id number] [address] [place] [id number] Dec, [facility] [address] [id number] [address] [place] [id number] Dec, [facility] [address] [facility] [id number] [address] [place] [address] November, Primary insomnia F51.01 and Polyneuropathy G62.9 [facility] [address] [facility] [id number] [address] [place] [phone] November, [facility] [address] [facility] [id number] [address] [place] [address] November, Abdominal pain, left lower q uadrant R10.32 [facility] [address] [id number] [address] [place] [address] November, [facility] [address] [facility] [id number] [address] [place] [address] Oct, [facility] [address] [facility] [id number] [address] [place] [address] Oct, Abdominal pain, left lower q uadrant R10.32 ; 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 and Neuropathy G62.9 [facility] [address] [facility] [id number] [address] [place] [address] Oct, [facility] [address] [facility] [id number] [address] [place] [address] Sep, [facility] [id number] [place] [id number] Sep, [facility] [address] [facility] [id number] [address] [place] [address] Sep, [facility] [address] [facility] [id number] [address] [place] [id number] Aug, [facility] [address] [facility] [id number] [address] [place] [address] Aug, [facility] [address] [facility] [id number] [address] [place] [phone] Aug, Abdominal pain, left lower q uadrant R10.32 ; Neuropathy G62.9 and Anxiety F41.9 [facility] [id number] [place] [address] Jul, [facility] [address] [id number] [address] [place] [id number] Jul, [facility] [address] [id number] [address] [place] [id number] Jul, [facility] [address] [id number] [address] [place] [phone] Jul, [facility] [address] [id number] [address] [place] [phone] Jul, [facility] [address] [id number] [address] [place] [phone] Jun, [facility] [address] [id number] [address] [place] [id number] May, [facility] [address] [id number] [address] [place] [phone] May, [facility] [address] [id number] [address] [place] [id number] Apr, [facility] [address] [id number] [address] [place] [address] Apr, Muscle spasms of both lower extremities M62.838 and Cellulitis, unspecified cellulitis site L03.90 [facility] [address] [id number] [address] [place] [id number] Apr, [facility] [address] [id number] [address] [place] [id number] 23 Mar, 2016 Generalized abdominal pain R 10.84 [facility] [address] [id number] [address] [place] [phone] 20 Mar, 2016 [facility] [address] [id number] [address] [place] [id number] 14 Mar, 2016 [facility] [address] [id number] [address] [place] [phone] 14 Mar, 2016 [facility] [address] [id number] [address] [place] [id number] 13 Mar, 2016 [facility] [address] [id number] [address] [place] [id number] 12 Mar, 2016 [facility] [address] [id number] [address] [place] [phone] 09 Mar, 2016 [facility] [address] [id number] [address] [place] [id number] 06 Mar, 2016 [facility] [address] [id number] [address] [place] [id number] Feb, Other specified diseases of anus and rectum K62.89 [facility] [address] [id number] [address] [place] [id number] Feb, [facility] [address] [id number] [address] [place] [id number] Feb, Dizziness R42 [facility] [address] [id number] [address] [place] [phone] Feb, [facility] [address] [id number] [address] [place] [phone] Jan, Polyneuropathy G62.9 [facility] [address] [id number] [address] [place] [id number] Jan, Other specified diseases of anus and rectum K62.89 [facility] [address] [id number] [address] [place] [id number] Jan, [facility] [address] [id number] [address] [place] [phone] Jan, [facility] [address] [id number] [address] [place] [phone] Jan, [facility] [address] [id number] [address] [place] [phone] Jan, Dizziness R42 [facility] [address] [id number] [address] [place] [address], [place] [id number] Dec, [facility] [address] [id number] [address] [place] [address], [place] [id number] Dec, [facility] [address] [id number] [address] [place] [address], [place] [id number] Dec, [facility] [address] [id number] [address] [place] [address], [place] [id number] Dec, Dizziness R42 [facility] [address] [id number] [address] [place] [address], [place] [id number] November, [facility] [address] [id number] [address] [place] [address], [place] [id number] Oct, [facility] [address] [id number] [address] [place] [address], [place] [id number] Oct, [facility] [address] [id number] [address] [place] [address], [place] [id number] Oct, [facility] [address] [id number] [address] [place] [address], [place] [id number] Oct, [facility] [address] [id number] [address] [place] [address], [place] [id number] Sep, [facility] [address] [id number] [address] [place] [address] [place] [address] Sep, Primary insomnia F51.01 [facility] [address] [id number] [address] [place] [address], [place] [address] Sep, Primary insomnia F51.01 [facility] [address] [id number] [address] [place] [address], [place] [address] Sep, [facility] [address] [id number] [address] [place] [address], [place] [address] Aug, [facility] [address] [id number] [address] [place] [address], [place] [address] Aug, [facility] [address] [id number] [address] [place] [address] Aug, Primary insomnia F51.01 ; Mo od disorder F39 ; Nausea and vomiting, unspecified intactability, vomiting of unspecified type R11.2 and Diarrhea R19.7 [facility] [address] [id number] [address] [place] [address] Aug, [facility] [id number] [place] [address] Aug, Folliculitis L73.9 [facility] [id number] [place] [address] Aug, [facility] [id number] [place] [address] Aug, [facility] [id number] [place] [address] Jul, Folliculitis L73.9 [facility] [address] [id number] [address] [place] [address] Jul, [facility] [id number] [place] [address] Jun, Folliculitis L73.9 [facility] [address] [id number] [address] [place] [address] Jun, [facility] [address] [id number] [address] [place] [address] May, Polyneuropathy G62.9 [facility] [address] [id number] [address] [place] [address] May, Other specified diseases of anus and rectum K62.89 [facility] [address] [id number] [address] [place] [address] May, [facility] [address] [id number] [address] [place] [address] May, Primary insomnia F51.01 [facility] [address] [id number] [address] [place] [address] May, [facility] [address] [id number] [address] [place] [address] May, [facility] [address] [id number] [address] [place] [address] Apr, Other specified diseases of anus and rectum K62.89 ; Chronic fatigue R53.82 ; Urinary tract infection, site not specified N39.0 and Enterococcus as the cause of diseases classified elsewhere B95.2 [facility] [address] [id number] [address] [place] [id number] 16 Apr, 2015 [facility] [address] [id number] [address] [place] [id number] 15 Apr, 2015 [facility] [address] [id number] [address] [place] [address] Apr, 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 [facility] [address] [id number] [address] [place] [id number] 05 Apr, 2015 [facility] [address] [id number] [address] [place] [id number] 26 Mar, 2015 [facility] [address] [id number] [address] [place] [id number] 23 Mar, 2015 [facility] [address] [id number] [address] [place] [id number] 17 Mar, 2015 [facility] [address] [id number] [address] [place] [id number] 14 Mar, 2015 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 [facility] [address] [id number] [address] [place] [id number] 12 Mar, 2015 [facility] [address] [id number] [address] [place] [id number] 11 Mar, 2015 [facility] [address] [id number] [address] [place] [phone] Mar, [facility] [address] [id number] [address] [place] [phone] Mar, [facility] [address] [id number] [address] [place] [id number] Feb, [facility] [address] [id number] [address] [place] [id number] Feb, [facility] [address] [id number] [address] [place] [phone] Feb, [facility] [address] [id number] [address] [place] [id number] Jan, [facility] [address] [id number] [address] [place] [id number] Jan, Nausea 787.02 and Neuropathy 355.9 [facility] [address] [id number] [address] [place] [id number] Jan, [facility] [address] [id number] [address] [place] [phone] Jan, [facility] [address] [id number] [address] [place] [id number] Jan, [facility] [address] [id number] [address] [place] [id number] 10 Jan, 2015 Dental examination V72.2 [facility] [address] [id number] [address] [place] [phone] Jan, [facility] [address] [id number] [address] [place] [id number] Dec, [facility] [address] [id number] [address] [place] [phone] Dec, [facility] [address] [id number] [address] [place] [id number] Dec, Neuropathy 355.9 [facility] [address] [id number] [address] [place] [id number] November, [facility] [address] [id number] [address] [place] [address], [place] [address] November, [facility] [address] [id number] [address] [place] [address], [place] [address] November, [facility] [address] [id number] [address] [place] [address], [place] [address] Oct, [facility] [address] [id number] [address] [place] [address], [place] [address] Oct, [facility] [address] [id number] [address] [place] [address], [place] [address] Sep, [facility] [address] [id number] [address] [place] [address], [place] [address] Sep, [facility] [address] [id number] [address] [place] [address], [place] [address] Sep, [facility] [address] [id number] [address] [place] [address], [place] [address] Sep, [facility] [address] [id number] [address] [place] [address], [place] [address] Sep, [facility] [address] [id number] [address] [place] [address], [place] [address] Sep, [facility] [address] [id number] [address] [place] [address], [place] [address] Sep, [facility] [address] [id number] [address] [place] [address], [place] [address] Sep, [facility] [address] [id number] [address] [place] [address], [place] [address] Aug, [facility] [address] [id number] [address] [place] [address], [place] [address] Aug, [facility] [address] [id number] [address] [place] [address], [place] [address] Aug, [facility] [address] [id number] [address] [place] [address], [place] [address] Aug, 2014 [facility] [address] [id number] [address] [place] [address], [place] [address] Aug, 2014 [facility] [address] [id number] [address] [place] [address], [place] [address] Aug, 2014 [facility] [address] [id number] [address] [place] [address], [place] [address] Aug, 2014 [facility] [address] [id number] [address] [place] [address], [place] [address] Aug, [facility] [address] [id number] [address] [place] [address], [place] [address] Jul, [facility] [address] [id number] [address] [place] [address], [place] [address] Jul, [facility] [address] [id number] [address] [place] [address], [place] [address] Jun, [facility] [address] [id number] [address] [place] [address], [place] [address] Jun, [facility] [address] [id number] [address] [place] [address], [place] [address] Jun, [facility] [address] [id number] [address] [place] [address], [place] [address] Jun, [facility] [address] [id number] [address] [place] [address], [place] [address] Jun, [facility] [address] [id number] [address] [place] [address], [place] [address] Jun, [facility] [address] [id number] [address] [place] [address], [place] [address] Jun, [facility] [address] [id number] [address] [place] [address], [place] [address] Jun, [facility] [address] [id number] [address] [place] [address], [place] [address] Jun, [facility] [address] [id number] [address] [place] [address], [place] [address] Jun, [facility] [address] [id number] [address] [place] [address], [place] [address] Jun, [facility] [address] [id number] [address] [place] [address], [place] [address] May, [facility] [address] [id number] [address] [place] [address], [place] [address] May, [facility] [address] [id number] [address] [place] [address], [place] [address] May, [facility] [address] [id number] [address] [place] [address], [place] [address] May, [facility] [address] [id number] [address] [place] [address], [place] [address] May, [facility] [address] [id number] [address] [place] [address], [place] [address] May, [facility] [address] [id number] [address] [place] [address], [place] [address] May, [facility] [address] [id number] [address] [place] [address], [place] [address] May, [facility] [address] [id number] [address] [place] [address], [place] [address] May, [facility] [address] [id number] [address] [place] [address], [place] [address] Apr, [facility] [address] [id number] [address] [place] [address], [place] [address] Apr, [facility] [address] [id number] [address] [place] [address], [place] [address] Apr, [facility] [address] [id number] [address] [place] [address], [place] [address] Apr, [facility] [address] [id number] [facility] [place] [address] Apr, [facility] [address] [id number] [facility] [place] [address] Mar, [facility] [address] [id number] [facility] [place] [address] Mar, [facility] [address] [id number] [address] [place] [address], [place] [address] Feb, [facility] [address] [id number] [address] [place] [address], [place] [address] Feb, [facility] [address] [id number] [address] [place] [address], [place] [address] Feb, [facility] [address] [id number] [address] [place] [address], [place] [address] Feb, [facility] [address] [id number] [address] [place] [address], [place] [address] Feb, [facility] [address] [id number] [address] [place] [address], [place] [address] Feb, [facility] [address] [id number] [address] [place] [address], [place] [address] Jan, [facility] [address] [id number] [address] [place] [address], [place] [address] Jan, [facility] [address] [id number] [address] [place] [address], [place] [address] Jan, [facility] [address] [id number] [address] [place] [address], [place] [address] Jan, [facility] [address] [id number] [address] [place] [address], [place] [address] Jan, [facility] [address] [id number] [address] [place] [address], [place] [address] Jan, [facility] [address] [id number] [address] [place] [address], [place] [address] Jan, [facility] [address] [id number] [facility] [place] [address] Jan, [facility] [address] [id number] [address] [place] [address], [place] [address] Jan, [facility] [address] [id number] [facility] [place] [address] Jan, [facility] [address] [id number] [address] [place] [address], [place] [address] Jan, [facility] [address] [id number] [address] [place] [address], [place] [address] Dec, [facility] [address] [id number] [address] [place] [address], [place] [address] Dec, [facility] [address] [id number] [address] [place] [address], [place] [address] Dec, [facility] [address] [id number] [address] [place] [address], [place] [address] Dec, [facility] [address] [id number] [address] [place] [address], [place] [address] Dec, [facility] [address] [id number] [address] [place] [address], [place] [address] Dec, [facility] [address] [id number] [address] [place] [address], [place] [address] November, [facility] [address] [id number] [address] [place] [address], [place] [address] November, [facility] [address] [id number] [address] [place] [address], [place] [address] November, [facility] [address] [id number] [address] [place] [address], [place] [address] November, [facility] [address] [id number] [address] [place] [address], [place] [address] November, [facility] [address] [id number] [address] [place] [address], [place] [address] November, [facility] [address] [id number] [address] [place] [address], [place] [address] Oct, [facility] [address] [id number] [address] [place] [address], [place] [address] Oct, [facility] [address] [id number] [address] [place] [address], [place] [address] Oct, [facility] [address] [id number] [address] [place] [address], [place] [address] Oct, [facility] [address] [id number] [address] [place] [address], [place] [address] Sep, [facility] [address] [id number] [address] [place] [address], [place] [address] Sep, [facility] [address] [id number] [address] [place] [address], [place] [address] Sep, [facility] [address] [id number] [address] [place] [address], [place] [address] Sep, [facility] [address] [id number] [address] [place] [address], [place] [address] Sep, [facility] [address] [id number] [address] [place] [address], [place] [address] Aug, [facility] [address] [id number] [address] [place] [address], [place] [address] Aug, [facility] [address] [id number] [address] [place] [address], [place] [address] Aug, [facility] [address] [id number] [address] [place] [address], [place] [address] Aug, [facility] [address] [id number] [address] [place] [address], [place] [address] 14 Aug, 2013 [facility] [address] [place] [id number] May, [facility] [address] [id number] [address] [place] [address], [place] [address] May, [facility] [address] [id number] [address] [place] [address], [place] [address] 08 May, 2013 [facility] [address] [id number] [address] [place] [address], [place] [address] May, [facility] [address] [id number] [address] [place] [address], [place] [address] May, [facility] [address] [id number] [address] [place] [address], [place] [address] Apr, [facility] [address] [id number] [address] [place] [address], [place] [address] Apr, [facility] [address] [id number] [address] [place] [address], [place] [address] Apr, [facility] [address] [id number] [address] [place] [address], [place] [address] Apr, [facility] [address] [id number] [address] [place] [address], [place] [address] Apr, [facility] [address] [id number] [address] [place] [address], [place] [address] Apr, [facility] [address] [id number] [address] [place] [address], [place] [address] Apr, [facility] [address] [id number] [address] [place] [address], [place] [address] 28 Mar, 2013 [facility] [address] [id number] [address] [place] [address], [place] [address] 25 Mar, 2013 [facility] [address] [id number] [address] [place] [address], [place] [address] 24 Sep2012 [facility] [address] [id number] [address] [place] [address], [place] [address] 16 Sep2012 [facility] [address] [id number] [address] [place] [address] [address] Mar, [facility] [address] [id number] [address] [place] [address], [place] [address] Mar, [facility] [address] [id number] [address] [place] [address], [place] [address] Feb, [facility] [address] [id number] [address] [place] [address], [place] [address] Feb, [facility] [address] [id number] [address] [place] [address], [place] [address] Feb, [facility] [address] [id number] [address] [place] [address], [place] [address] Feb, [facility] [address] [id number] [address] [place] [address], [place] [address] Feb, [facility] [address] [id number] [address] [place] [address], [place] [address] Feb, [facility] [address] [id number] [address] [place] [address], [place] [address] Jan, [facility] [address] [id number] [address] [place] [address], [place] [address] Dec, [facility] [address] [id number] [address] [place] [address], [place] [address] Dec, [facility] [address] [id number] [address] [place] [address], [place] [address] Dec, [facility] [address] [id number] [address] [place] [address], [place] [address] Dec, [facility] [address] [id number] [address] [place] [address], [place] [address] Dec, [facility] [address] [id number] [address] [place] [address], [place] [address] 18 Dec, 2012 [facility] [address] [id number] [address] [place] [address], [place] [address] 17 Dec, 2012 [facility] [address] [id number] [address] [place] [address], [place] [address] Dec, [facility] [address] [id number] [address] [place] [address], [place] [address] Dec, [facility] [address] [id number] [address] [place] [address], [place] [address] November, [facility] [address] [id number] [address] [place] [address], [place] [address] November, [facility] [address] [id number] [address] [place] [address], [place] [address] Oct, [facility] [address] [id number] [address] [place] [address], [place] [address] Sep, [facility] [address] [id number] [address] [place] [address], [place] [address] Sep, [facility] [address] [id number] [address] [place] [address], [place] [address] 15 Sep, 2012 [facility] [address] [id number] [address] [place] [address], [place] [address] Sep, [facility] [address] [id number] [address] [place] [address], [place] [address] Aug, [facility] [address] [id number] [address] [place] [address], [place] [address] Aug, [facility] [address] [id number] [address] [place] [address], [place] [address] Jul, [facility] [address] [id number] [address] [place] [address], [place] [address] Jul, [facility] [address] [id number] [address] [place] [address], [place] [address] 18 Jul, 2012 [facility] [address] [id number] [address] [place] [address], [place] [address] 22 Sep, 2011 [facility] [address] [id number] [address] [place] [address], [place] [address] 17 Sep, 2011 [facility] [address] [facility] [id number] [address] [place] [address] 10 Sep, 2011 IMMUNIZATIONS No Known Immunizations SOCIAL HISTORY Never Assessed REASON FOR VISIT PLAN OF CARE VITAL SIGNS Height 67 in 2013-01-22 Weight 187 lbs 2013-01-22 Temperature 97.4 degrees Fahrenheit 2013-01-22 Heart Rate 60 bpm 2013-01-22 Respiratory Rate 18 2013-01-22 Blood pressure systolic 120 mmHg 2013-01-22 Blood pressure diastolic 72 mmHg 2013-01-22 MEDICATIONS Unknown Medications RESULTS No Results PROCEDURES [...] 09/21/16 Hospitalization History Large bowel obstruction, Dehydration -H 01/01/17 Hospitalization History [facility], [place], operated by [facility]- UTI/Sepsis 01/18/2018 Hospitalization History [facility] - infection 4 days 05/2018
--- OUTSIDE RECORDS SUMMARY | 2020-01-14 23:01 | XMS REPORT ---
Author Author Melvin BENTLEY Organization [facility] Address [address] [place] [address] Care Team Providers Care Flour Mixer Name Role Phone LINDA BENTLEY Unavailable PROBLEMS Type Condition ICD9-CM Code XXJ01-PI Code Onset Dates Condition S tatus SNOMED Code Problem Incontinence of feces, unspecified fecal incontinence type R15.9 Active 25824042 Problem Primary insomnia F51.01 Active 193 823282 Problem Hydronephrosis with ureteral stricture, not else where classified N13.1 Active 19776230 Problem Chronic fatigue, unspecified R53.82 A ctive 202756365 Problem Hypertension, benign I10 Active 56002190 Problem Mood disorder F39 Active 504357 05 Problem Neuropathy G62.9 Active 574273754 Problem Chronic pain syndrome G89.4 Active 235705089 Problem Abdominal pain, left lower quadrant R10.32 Active 758440364 Problem 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 Active 614167732 Problem 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 984038482 Problem Anxiety F41.9 Active 56749600 Problem Polyneuropathy G62.9 Active 76244 000 Problem Malignant neoplasm of colon, unspecified part of colon C18.9 Active 369180166 Problem Attention to urostomy Z43.6 Active [id number] ALLERGIES No Information ENCOUNTERS Encounter Location Date Diagnosis [facility] [address] [facility] [id number] [address] [place] [phone] 16 Oct, 2019 Attention to urostomy Z43.6 and Hypertension, benign I10 [facility] [address] [facility] [id number] [address] [place] [phone] 15 Oct, 2019 [facility] [address] [facility] [id number] [address] [place] [id number] 14 Oct, 2019 Neuropathy G62.9 ; Anxiety F 41.9 and Encounter for Medicare annual wellness exam Z00.00 [facility] [address] [id number] [address] [place] [phone] 10 Sep, 2019 Neuropathy G62.9 ; Anxiety F 41.9 and Encounter for Medicare annual wellness exam Z00.00 [facility] [address] [id number] [address] [place] [phone] 12 Aug, 2019 Anxiety F41.9 ; Neuropathy G 62.9 and Encounter for Medicare annual wellness exam Z00.00 [facility] [address] [id number] [address] [place] [id number] 31 Jul, 2019 [facility] [address] [id number] [address] [place] [phone] Jul, Primary insomnia F51.01 and Anxiety F41.9 [facility] [address] [id number] [address] [place] [id number] 14 Jul, 2019 Primary insomnia F51.01 ; Ne uropathy G62.9 and Encounter for Medicare annual wellness exam Z00.00 [facility] [address] [id number] [address] [place] [phone] Jun, Neuropathy G62.9 and Encount er for Medicare annual wellness exam Z00.00 [facility] [address] [id number] [address] [place] [phone] 18 Jun, 2019 Primary insomnia F51.01 [facility] [address] [id number] [address] [place] [phone] 17 Jun, 2019 Primary insomnia F51.01 ; En counter for Medicare annual wellness exam Z00.00 and Neuropathy G62.9 [facility] [address] [id number] [address] [place] [phone] Jun, Malignant neoplasm of colon, unspecified part of colon C18.9 and Chronic fatigue, unspecified R53.82 [facility] [address] [id number] [address] [place] [phone] May, Neuropathy G62.9 and Encount er for Medicare annual wellness exam Z00.00 [facility] [address] [id number] [address] [place] [phone] 15 May, 2019 Primary insomnia F51.01 [facility] [address] [id number] [address] [place] [phone] May, Neuropathy G62.9 and Anxiety F41.9 [facility] [address] [id number] [address] [place] [phone] 30 Apr, 2019 Encounter for Medicare annua l wellness exam Z00.00 [facility] [address] [id number] [address] [place] [phone] 16 Apr, 2019 Neuropathy G62.9 and Encount er for Medicare annual wellness exam Z00.00 [facility] [address] [id number] [address] [place] [phone] 26 Mar, 2019 Neuropathy G62.9 and Primary insomnia F51.01 [facility] [address] [id number] [address] [place] [phone] Mar, [facility] [address] [id number] [address] [place] [phone] Feb, Primary insomnia F51.01 ; Ne uropathy G62.9 and Encounter for Medicare annual wellness exam Z00.00 [facility] [address] [id number] [address] [place] [phone] Feb, Neuropathy G62.9 and Encount er for Medicare annual wellness exam Z00.00 [facility] [address] [id number] [address] [place] [phone] Feb, Primary insomnia F51.01 and High risk medication use Z79.899 [facility] [address] [id number] [address] [place] [phone] Jan, [facility] [address] [id number] [address] [place] [phone] Jan, Neuropathy G62.9 [facility] [address] [id number] [address] [place] [phone] Dec, [facility] [address] [id number] [address] [place] [phone] Dec, Encounter for Medicare annua l wellness exam Z00.00 and Neuropathy G62.9 [facility] [address] [id number] [address] [place] [phone] November, [facility] [address] [id number] [address] [place] [phone] November, Encounter for Medicare annua l wellness exam Z00.00 ; 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 ; Mood disorder F39 ; Chronic fatigue, unspecified R53.82 and Neuropathy G62.9 [facility] [address] [id number] [address] [place] [phone] November, Neuropathy G62.9 [facility] [address] [id number] [address] [place] [phone] Oct, Neuropathy G62.9 [facility] [address] [id number] [address] [place] [phone] Oct, Hypertension, benign I10 and Anxiety F41.9 [facility] [address] [id number] [address] [place] [phone] Oct, [facility] [address] [id number] [address] [place] [phone] Oct, [facility] [address] [id number] [address] [place] [phone] Oct, [facility] [address] [id number] [address] [place] [phone] Oct, Neuropathy G62.9 [facility] [address] [id number] [address] [place] [id number] Sep, [facility] [address] [id number] [address] [place] [phone] Sep, Neuropathy G62.9 [facility] [address] [id number] [address] [place] [phone] Sep, [facility] [address] [facility] [id number] [address] [place] [phone] Sep, H/O malignant carcinoid tumo r of 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 and Primary insomnia F51.01 [facility] [address] [id number] [address] [place] [phone] Aug, [facility] [address] [id number] [address] [place] [phone] Aug, Neuropathy G62.9 [facility] [address] [id number] [address] [place] [phone] Aug, [facility] [address] [facility] [id number] [address] [place] [phone] Jul, Non-recurrent acute suppurat francine otitis media of left ear without spontaneous rupture of tympanic membrane H66.002 [facility] [address] [facility] [id number] [address] [place] [phone] Jul, Neuropathy G62.9 [facility] [address] [facility] [id number] [address] [place] [phone] Jun, [facility] [address] [facility] [id number] [address] [place] [phone] Jun, [facility] [address] [facility] [id number] [address] [place] [phone] Jun, Neuropathy G62.9 [facility] [address] [facility] [id number] [address] [place] [phone] Jun, [facility] [address] [facility] [id number] [address] [place] [phone] Jun, [facility] [address] [facility] [id number] [address] [place] [phone] Jun, Lumbar neuritis M54.16 [facility] [address] [facility] [id number] [address] [place] [phone] May, Neuropathy G62.9 [facility] [address] [place] [id number] [address] [place] [phone] May, [facility] [address] [place] [id number] [address] [place] [phone] 05 May, 2018 Neuropathy G62.9 and Hyperte nsion, benign I10 [facility] [address] [place] [id number] [place] [phone] Apr, Polyneuropathy G62.9 and Hyp ertension, benign I10 [facility] [address] [place] [id number] [place] [phone] 17 Mar, 2018 Chronic pain syndrome G89.4 and Hypertension, benign I10 [place] [address] [place] [id number] [place] [phone] Mar, Polyneuropathy G62.9 and Hyp ertension, benign I10 [facility] [address] [place] [id number] [address] [place] [phone] Feb, [facility] [address] [phone] Feb, Hypertension, benign I10 [facility] [address] [place] [id number] [place] [phone] Feb, Hypertension, benign I10 ; P olyneuropathy G62.9 and Primary insomnia F51.01 [facility] [address] [place] [id number] [address] [place] [phone] Jan, Hypertension, benign I10 and Polyneuropathy G62.9 [facility] [address] [place] [id number] [address] [place] [phone] Jan, Hypertension, benign I10 and Neuropathy G62.9 [facility] [address] [place] [id number] [address] [place] [phone] Jan, [facility] [address] [place] [id number] [address] [place] [phone] Dec, Polyneuropathy G62.9 [facility] [address] [id number] [address] [place] [phone] Dec, Mood disorder F39 [facility] [address] [id number] [address] [place] [phone] November, Polyneuropathy G62.9 [facility] [address] [facility] [id number] [address] [place] [id number] November, Medicare annual wellness vis it, initial Z00.00 [facility] [address] [id number] [address] [place] [phone] November, Mood disorder F39 [facility] [address] [id number] [address] [place] [phone] Oct, Polyneuropathy G62.9 [facility] [address] [facility] [id number] [address] [place] [phone] Oct, [facility] [address] [facility] [id number] [address] [place] [phone] Oct, [facility] [address] [facility] [id number] [address] [place] [phone] Oct, Mood disorder F39 ; Attentio n to urostomy Z43.6 ; Chronic pain syndrome G89.4 and Polyneuropathy G62.9 [facility] [address] [facility] [id number] [address] [place] [phone] Sep, Polyneuropathy G62.9 [facility] [address] [id number] [address] [place] [phone] Sep, [facility] [address] [id number] [address] [place] [phone] Sep, Polyneuropathy G62.9 [facility] [address] [facility] [id number] [address] [place] [phone] Aug, Polyneuropathy G62.9 [facility] [address] [facility] [id number] [address] [place] [phone] Aug, Malignant neoplasm of colon, unspecified part of colon C18.9 and Polyneuropathy G62.9 [facility] [address] [facility] [id number] [address] [place] [phone] Aug, Neuropathy G62.9 and Polyneu ropathy G62.9 [facility] [address] [facility] [id number] [address] [place] [id number] Jul, Encounter for drug screening Z02.83 [facility] [address] [id number] [address] [place] [phone] Jul, Polyneuropathy G62.9 [facility] [address] [facility] [id number] [address] [place] [phone] Jul, [facility] [address] [facility] [id number] [address] [place] [phone] Jul, Neuropathy G62.9 and Anxiety F41.9 [facility] [address] [facility] [id number] [address] [place] [phone] Jul, [facility] [address] [facility] [id number] [address] [place] [phone] Jul, [facility] [address] [facility] [id number] [address] [place] [phone] Jul, [facility] [address] [facility] [id number] [address] [place] [phone] Jul, Polyneuropathy G62.9 [facility] [address] [id number] [address] [place] [phone] Jul, [facility] [address] [facility] [id number] [address] [place] [phone] Jun, [facility] [address] [facility] [id number] [address] [place] [phone] Jun, [facility] [address] [facility] [id number] [address] [place] [phone] Jun, [facility] [address] [id number] [place] [address] 07 Jun, 2017 Encounter for dental examina tion Z01.20 [facility] [address] [place] [id number] [address] [place] [phone] Jun, Polyneuropathy G62.9 and Anx iety F41.9 [facility] [address] [place] [id number] [address] [place] [phone] Jun, [facility] [address] [id number] [address] [address] May, Dental examination Z01.20 [facility] [address] [place] [id number] [address] [place] [id number] May, Polyneuropathy G62.9 [place] [id number] [place] [id number] [address] [place] [phone] Apr, Polyneuropathy G62.9 [facility] [address] [place] [id number] [address] [place] [phone] Apr, Polyneuropathy G62.9 [facility] [address] [place] [id number] [place] [phone] Apr, Hypertension, benign I10 ; P olyneuropathy G62.9 and Anxiety F41.9 [place] [address] [place] [id number] [address] [place] [phone] Apr, Primary insomnia F51.01 and Polyneuropathy G62.9 [facility] [address] [place] [id number] [address] [place] [phone] Apr, Primary insomnia F51.01 and Polyneuropathy G62.9 [facility] [address] [place] [id number] [address] [place] [phone] Mar, Primary insomnia F51.01 [facility] [address] [place] [id number] [address] [place] [phone] Mar, [place] [address] [id number] [address] [place] [address], [place] [address] Mar, Polyneuropathy G62.9 [facility] [address] [id number] [address] [place] [address], [place] [address] Feb, Primary insomnia F51.01 [facility] [address] [id number] [address] [place] [address], [place] [address] Feb, [facility] [address] [id number] [address] [place] [address], [place] [address] Feb, [facility] [address] [id number] [address] [place] [address], [place] [address] Feb, Polyneuropathy G62.9 [facility] [address] [id number] [address] [place] [address], [place] [address] Feb, Primary insomnia F51.01 [facility] [address] [id number] [address] [place] [address], [place] [address] Jan, [facility] [address] [id number] [address] [place] [address], [place] [address] Jan, [facility] [address] [id number] [address] [place] [address], [place] [address] Dec, [facility] [address] [id number] [address] [place] [address] Dec, Primary insomnia F51.01 [facility] [address] [id number] [address] [place] [address], [place] [address] Dec, Primary insomnia F51.01 [facility] [address] [id number] [address] [place] [address], [place] [address] Dec, [facility] [address] [id number] [address] [place] [phone] Dec, [facility] [address] [id number] [address] [place] [phone] Dec, [facility] [address] [id number] [address] [place] [phone] Dec, [facility] [address] [facility] [id number] [address] [place] [address] November, Primary insomnia F51.01 and Polyneuropathy G62.9 [facility] [address] [id number] [address] [place] [address] November, [facility] [address] [facility] [id number] [address] [place] [phone] November, Abdominal pain, left lower q uadrant R10.32 [facility] [address] [facility] [id number] [address] [place] [phone] November, [facility] [address] [facility] [id number] [address] [place] [phone] Oct, [facility] [address] [facility] [id number] [address] [place] [phone] Oct, Abdominal pain, left lower q uadrant R10.32 ; 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 and Neuropathy G62.9 [facility] [address] [facility] [id number] [address] [place] [phone] Oct, [facility] [address] [facility] [id number] [address] [place] [phone] Sep, [facility] [id number] [place] [id number] Sep, [facility] [address] [facility] [id number] [address] [place] [phone] Sep, [facility] [address] [facility] [id number] [address] [place] [phone] Aug, [facility] [address] [facility] [id number] [address] [place] [phone] Aug, [facility] [address] [facility] [id number] [address] [place] [phone] Aug, Abdominal pain, left lower q uadrant R10.32 ; Neuropathy G62.9 and Anxiety F41.9 [facility] [id number] [place] [phone] Jul, [facility] [address] [id number] [address] [place] [phone] Jul, [facility] [address] [id number] [address] [place] [phone] Jul, [facility] [address] [id number] [address] [place] [phone] Jul, [facility] [address] [id number] [address] [place] [phone] Jul, [facility] [address] [id number] [address] [place] [phone] Jun, [facility] [address] [id number] [address] [place] [phone] May, [facility] [address] [id number] [address] [place] [phone] May, [facility] [address] [id number] [address] [place] [phone] Apr, [facility] [address] [facility] [id number] [address] [place] [phone] Apr, Muscle spasms of both lower extremities M62.838 and Cellulitis, unspecified cellulitis site L03.90 [facility] [address] [id number] [address] [place] [address] Apr, [facility] [address] [id number] [address] [place] [phone] 23 Mar, 2016 Generalized abdominal pain R 10.84 [facility] [address] [id number] [address] [place] [phone] 20 Mar, 2016 [facility] [address] [facility] [id number] [address] [place] [phone] 14 Mar, 2016 [facility] [address] [id number] [address] [place] [phone] 14 Mar, 2015 [facility] [address] [id number] [address] [place] [phone] 13 Mar, 2016 [facility] [address] [id number] [address] [place] [phone] 12 Mar, 2016 [facility] [address] [id number] [address] [place] [phone] 09 Mar, 2016 [facility] [address] [id number] [address] [place] [phone] 06 Mar, 2016 [facility] [address] [id number] [address] [place] [phone] Feb, Other specified diseases of anus and rectum K62.89 [facility] [address] [id number] [address] [place] [phone] Feb, [facility] [address] [id number] [address] [place] [phone] Feb, Dizziness R42 [facility] [address] [id number] [address] [place] [id number] Feb, [facility] [address] [id number] [address] [place] [id number] Jan, Polyneuropathy G62.9 [facility] [address] [id number] [address] [place] [id number] Jan, Other specified diseases of anus and rectum K62.89 [facility] [address] [id number] [address] [place] [phone] Jan, [facility] [address] [id number] [address] [place] [id number] 16 Jan, 2016 [facility] [address] [id number] [address] [place] [id number] 15 Jan, 2016 [facility] [address] [id number] [address] [place] [phone] Jan, Dizziness R42 [facility] [address] [id number] [address] [place] [address], [place] [id number] Dec, [facility] [address] [id number] [address] [place] [address], [place] [id number] Dec, [facility] [address] [id number] [address] [place] [address], [place] [id number] Dec, [facility] [address] [id number] [address] [place] [address], [place] [id number] Dec, Dizziness R42 [facility] [address] [id number] [address] [place] [address], [place] [id number] November, [facility] [address] [id number] [address] [place] [address], [place] [id number] Oct, [facility] [address] [id number] [address] [place] [address], [place] [phone] Oct, [facility] [address] [id number] [address] [place] [address], [place] [id number] Oct, [facility] [address] [id number] [address] [place] [address], [place] [phone] Oct, [facility] [address] [id number] [address] [place] [address], [place] [phone] Sep, [facility] [address] [id number] [address] [place] [address], [place] [phone] Sep, Primary insomnia F51.01 [facility] [address] [id number] [address] [place] [address], [place] [address] Sep, Primary insomnia F51.01 [facility] [address] [id number] [address] [place] [address], [place] [id number] Sep, [facility] [address] [id number] [address] [place] [address], [place] [address] Aug, [facility] [address] [id number] [place] [address] Aug, [facility] [address] [id number] [address] [place] [address] Aug, Primary insomnia F51.01 ; Mo od disorder F39 ; Nausea and vomiting, unspecified intactability, vomiting of unspecified type R11.2 and Diarrhea R19.7 [facility] [address] [id number] [address] [place] [phone] Aug, [facility] [address] [id number] [address] [place] [address] Aug, Folliculitis L73.9 [facility] [address] [address] Aug, [facility] [id number] [place] [address] Aug, [facility] [id number] [place] [address] Jul, Folliculitis L73.9 [facility] [address] [id number] [address] [place] [address] Jul, [facility] [address] [address] Jun, Folliculitis L73.9 [facility] [address] [id number] [address] [place] [address] Jun, [facility] [address] [id number] [address] [place] [address] May, Polyneuropathy G62.9 [facility] [address] [id number] [address] [place] [address] May, Other specified diseases of anus and rectum K62.89 [facility] [address] [id number] [address] [place] [address] May, [facility] [id number] [place] [address] May, Primary insomnia F51.01 [facility] [address] [id number] [address] [place] [phone] May, [facility] [address] [id number] [address] [place] [address] May, [facility] [address] [id number] [address] [place] [phone] Apr, Other specified diseases of anus and rectum K62.89 ; Chronic fatigue R53.82 ; Urinary tract infection, site not specified N39.0 and Enterococcus as the cause of diseases classified elsewhere B95.2 [facility] [address] [id number] [address] [place] [id number] 16 Apr, 2015 [facility] [address] [id number] [address] [place] [id number] 15 Apr, 2015 [facility] [address] [id number] [address] [place] [address] Apr, 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 [facility] [address] [id number] [address] [place] [phone] 05 Apr, 2015 [facility] [address] [id number] [address] [place] [phone] 26 Mar, 2015 [facility] [address] [id number] [address] [place] [id number] 23 Mar, 2015 [facility] [address] [id number] [address] [place] [phone] 17 Mar, 2015 [facility] [address] [id number] [address] [place] [phone] 14 Mar, 2015 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 [facility] [address] [id number] [address] [place] [id number] 12 Mar, 2015 [facility] [address] [id number] [address] [place] [id number] 11 Mar, 2015 [facility] [address] [id number] [address] [place] [phone] Mar, [facility] [address] [id number] [address] [place] [phone] Mar, [facility] [address] [id number] [address] [place] [id number] Feb, [facility] [address] [id number] [address] [place] [phone] Feb, [facility] [address] [id number] [address] [place] [phone] Feb, [facility] [address] [id number] [address] [place] [phone] Jan, [facility] [address] [id number] [address] [place] [phone] Jan, Nausea 787.02 and Neuropathy 355.9 [facility] [address] [id number] [address] [place] [phone] Jan, [facility] [address] [id number] [address] [place] [phone] Jan, [facility] [address] [id number] [address] [place] [address] Jan, [facility] [address] [id number] [address] [place] [id number] Jan, Dental examination V72.2 [facility] [address] [id number] [address] [place] [phone] Jan, [facility] [address] [id number] [address] [place] [phone] Dec, [facility] [address] [id number] [address] [place] [phone] Dec, [facility] [address] [id number] [address] [place] [id number] Dec, Neuropathy 355.9 [facility] [address] [id number] [address] [place] [address], [place] [address] November, [facility] [address] [id number] [address] [place] [address], [place] [address] November, [facility] [address] [id number] [address] [place] [address], [place] [address] November, [facility] [address] [id number] [address] [place] [address], [place] [address] Oct, [facility] [address] [id number] [address] [place] [address], [place] [address] Oct, [facility] [address] [id number] [address] [place] [address], [place] [address] Sep, [facility] [address] [id number] [address] [place] [address], [place] [address] Sep, [facility] [address] [id number] [address] [place] [address], [place] [address] Sep, [facility] [address] [id number] [address] [place] [address], [place] [address] Sep, [facility] [address] [id number] [address] [place] [address], [place] [address] Sep, [facility] [address] [id number] [address] [place] [address], [place] [address] Sep, [facility] [address] [id number] [address] [place] [address], [place] [address] Sep, [facility] [address] [id number] [address] [place] [address], [place] [address] Sep, [facility] [address] [id number] [address] [place] [address], [place] [address] Aug, [facility] [address] [id number] [address] [place] [address], [place] [address] Aug, [facility] [address] [id number] [address] [place] [address], [place] [address] Aug, 2014 [facility] [address] [id number] [address] [place] [address], [place] [address] Aug, 2014 [facility] [address] [id number] [address] [place] [address], [place] [address] Aug, 2014 [facility] [address] [id number] [address] [place] [address], [place] [address] Aug, 2014 [facility] [address] [id number] [address] [place] [address], [place] [address] Aug, 2014 [facility] [address] [id number] [address] [place] [address], [place] [address] Aug, [facility] [address] [id number] [address] [place] [address], [place] [address] Jul, [facility] [address] [id number] [address] [place] [address], [place] [address] Jul, [facility] [address] [id number] [address] [place] [address], [place] [address] Jun, [facility] [address] [id number] [address] [place] [address], [place] [address] Jun, [facility] [address] [id number] [address] [place] [address], [place] [address] Jun, [facility] [address] [id number] [address] [place] [address], [place] [address] Jun, [facility] [address] [id number] [address] [place] [address], [place] [address] Jun, [facility] [address] [id number] [address] [place] [address], [place] [address] Jun, [facility] [address] [id number] [address] [place] [address], [place] [address] Jun, [facility] [address] [id number] [address] [place] [address], [place] [address] Jun, [facility] [address] [id number] [address] [place] [address], [place] [address] Jun, [facility] [address] [id number] [address] [place] [address], [place] [address] Jun, [facility] [address] [id number] [address] [place] [address], [place] [address] Jun, [facility] [address] [id number] [address] [place] [address], [place] [address] May, [facility] [address] [id number] [address] [place] [address], [place] [address] May, [facility] [address] [id number] [address] [place] [address], [place] [address] May, [facility] [address] [id number] [address] [place] [address], [place] [address] May, [facility] [address] [id number] [address] [place] [address], [place] [address] May, [facility] [address] [id number] [address] [place] [address], [place] [address] May, [facility] [address] [id number] [address] [place] [address], [place] [address] May, [facility] [address] [id number] [address] [place] [address], [place] [address] May, [facility] [address] [id number] [address] [place] [address], [place] [address] May, [facility] [address] [id number] [address] [place] [address], [place] [address] Apr, [facility] [address] [id number] [address] [place] [address], [place] [address] Apr, [facility] [address] [id number] [address] [place] [address], [place] [address] Apr, [facility] [address] [id number] [address] [place] [address], [place] [address] Apr, [facility] [address] [id number] [facility] [address] Apr, [facility] [address] [id number] [address] [place] [address], [place] [address] Mar, [facility] [address] [id number] [address] [place] [address], [place] [address] Mar, [facility] [address] [id number] [address] [place] [address], [place] [address] Feb, [facility] [address] [id number] [address] [place] [address], [place] [address] Feb, [facility] [address] [id number] [address] [place] [address], [place] [address] Feb, [facility] [address] [id number] [address] [place] [address], [place] [address] Feb, [facility] [address] [id number] [address] [place] [address], [place] [address] Feb, [facility] [address] [id number] [address] [place] [address], [place] [address] Feb, [facility] [address] [id number] [address] [place] [address], [place] [address] Jan, [facility] [address] [id number] [address] [place] [address], [place] [address] Jan, [facility] [address] [id number] [address] [place] [address], [place] [address] Jan, [facility] [address] [id number] [address] [place] [address], [place] [address] Jan, [facility] [address] [id number] [address] [place] [address], [place] [address] Jan, [facility] [address] [id number] [address] [place] [address], [place] [address] Jan, [facility] [address] [id number] [address] [place] [address], [place] [address] Jan, [facility] [address] [id number] [facility] [place] [address] Jan, [facility] [address] [id number] [facility] [place] [address] Jan, [facility] [address] [id number] [facility] [place] [address] Jan, [facility] [address] [id number] [address] [place] [address], [place] [address] Jan, [facility] [address] [id number] [address] [place] [address], [place] [address] Dec, [facility] [address] [id number] [address] [place] [address], [place] [address] Dec, [facility] [address] [id number] [address] [place] [address], [place] [address] Dec, [facility] [address] [id number] [address] [place] [address], [place] [address] Dec, [facility] [address] [id number] [address] [place] [address], [place] [address] Dec, [facility] [address] [id number] [address] [place] [address], [place] [address] Dec, [facility] [address] [id number] [address] [place] [address], [place] [address] November, [facility] [address] [id number] [address] [place] [address], [place] [address] November, [facility] [address] [id number] [address] [place] [address], [place] [address] November, [facility] [address] [id number] [address] [place] [address], [place] [address] November, [facility] [address] [id number] [address] [place] [address], [place] [address] November, [facility] [address] [id number] [facility] [place] [address] November, [facility] [address] [id number] [facility] [place] [address] Oct, [facility] [address] [id number] [facility] [place] [address] Oct, [facility] [address] [id number] [address] [place] [address], [place] [address] Oct, [facility] [address] [id number] [address] [place] [address], [place] [address] Oct, [facility] [address] [id number] [address] [place] [address], [place] [address] Sep, [facility] [address] [id number] [address] [place] [address], [place] [address] Sep, [facility] [address] [id number] [address] [place] [address], [place] [address] Sep, [facility] [address] [id number] [address] [place] [address], [place] [address] Sep, [facility] [address] [id number] [address] [place] [address], [place] [address] Sep, [facility] [address] [id number] [address] [place] [address], [place] [address] Aug, [facility] [address] [id number] [address] [place] [address], [place] [address] Aug, [facility] [address] [id number] [address] [place] [address], [place] [address] Aug, [facility] [address] [id number] [address] [place] [address], [place] [address] 17 Aug, 2013 [facility] [address] [id number] [address] [place] [address], [place] [address] 14 Aug, 2013 [facility] [address] [place] [id number] May, [facility] [address] [id number] [address] [place] [address], [place] [address] May, [facility] [address] [id number] [address] [place] [address] May, [facility] [address] [id number] [address] [place] [address], [place] [address] May, [facility] [address] [id number] [address] [place] [address] May, [facility] [address] [id number] [address] [place] [address], [place] [address] Apr, [facility] [address] [id number] [address] [place] [address] Apr, [facility] [address] [id number] [address] [place] [address], [place] [address] Apr, [facility] [address] [id number] [address] [place] [address] Apr, [facility] [address] [id number] [address] [place] [address] Apr, [facility] [address] [id number] [address] [place] [address] Apr, [facility] [address] [id number] [address] [place] [address] Apr, [facility] [address] [id number] [address] [place] [id number] 28 Mar, 2013 [facility] [address] [id number] [address] [place] [address] 25 Mar, 2013 [facility] [address] [id number] [address] [place] [id number] 24 Mar, 2013 [facility] [address] [id number] [address] [place] [id number] 16 Mar, 2013 [facility] [address] [id number] [address] [place] [address], [place] [address] Mar, [facility] [address] [id number] [address] [place] [address], [place] [address] Mar, [facility] [address] [id number] [address] [place] [address], [place] [address] Feb, [facility] [address] [id number] [address] [place] [address], [place] [address] Feb, [facility] [address] [id number] [address] [place] [address], [place] [address] Feb, [facility] [address] [id number] [address] [place] [address], [place] [address] Feb, [facility] [address] [id number] [address] [place] [address], [place] [address] Feb, [facility] [address] [id number] [address] [place] [address], [place] [address] Feb, [facility] [address] [id number] [address] [place] [address], [place] [address] Jan, [facility] [address] [id number] [address] [place] [address], [place] [address] Dec, [facility] [address] [id number] [address] [place] [address], [place] [address] Dec, [facility] [address] [id number] [address] [place] [address], [place] [address] Dec, [facility] [address] [id number] [address] [place] [address], [place] [address] Dec, [facility] [address] [id number] [address] [place] [address], [place] [address] Dec, [facility] [address] [id number] [address] [place] [address], [place] [address] 18 Dec, 2012 [facility] [address] [id number] [address] [place] [address], [place] [id number] 17 Dec, 2012 [facility] [address] [id number] [address] [place] [address], [place] [address] Dec, [facility] [address] [id number] [address] [place] [address], [place] [address] Dec, [facility] [address] [id number] [address] [place] [address], [place] [address] November, [facility] [address] [id number] [address] [place] [address], [place] [address] November, [facility] [address] [id number] [address] [place] [address], [place] [address] Oct, [facility] [address] [id number] [address] [place] [address], [place] [address] Sep, [facility] [address] [id number] [address] [place] [address], [place] [address] Sep, [facility] [address] [id number] [address] [place] [address], [place] [address] Sep, [facility] [address] [id number] [address] [place] [address], [place] [address] Sep, [facility] [address] [id number] [address] [place] [address], [place] [address] Aug, [facility] [address] [id number] [address] [place] [address], [place] [address] Aug, [facility] [address] [id number] [address] [place] [address], [place] [address] Jul, [facility] [address] [id number] [address] [place] [address], [place] [address] Jul, [facility] [address] [id number] [address] [place] [address], [place] [address] Jul, [facility] [address] [id number] [address] [place] [address], [place] [address] Sep, [facility] [address] [id number] [address] [place] [address] Sep, [facility] [address] [facility] [id number] [address] [address] Sep, IMMUNIZATIONS No Known Immunizations SOCIAL HISTORY [...] bowel obstruction, Dehydration -[facility] 01/01/17 Hospitalization History [facility]- UTI/Sepsis 01/18/2018 Hospitalization History [facility] - infection 4 days 05/2018
--- OUTSIDE RECORDS SUMMARY | 2020-01-14 23:02 | XMS REPORT ---
Author Author Melvin BENTLEY Organization [facility] Address [address] [place] [address] Care Team Providers Care Painter Spray Name Role Phone LINDA BENTLEY Unavailable PROBLEMS Type Condition ICD9-CM Code CXD14-XW Code Onset Dates Condition S tatus SNOMED Code Problem Incontinence of feces, unspecified fecal incontinence type R15.9 Active 16823412 Problem Primary insomnia F51.01 Active 193 971323 Problem Hydronephrosis with ureteral stricture, not else where classified N13.1 Active 84881700 Problem Chronic fatigue, unspecified R53.82 A ctive 210501171 Problem Hypertension, benign I10 Active 37481190 Problem Mood disorder F39 Active 453220 05 Problem Neuropathy G62.9 Active 696365680 Problem Chronic pain syndrome G89.4 Active 218470787 Problem Abdominal pain, left lower quadrant R10.32 Active 243409622 Problem 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 Active 081139365 Problem 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 443232250 Problem Anxiety F41.9 Active 10896643 Problem Polyneuropathy G62.9 Active 52374 000 Problem Malignant neoplasm of colon, unspecified part of colon C18.9 Active 600733087 Problem Attention to urostomy Z43.6 Active 704915483 ALLERGIES No Information ENCOUNTERS Encounter Location Date Diagnosis [facility] [address] [facility] [id number] [address] [place] [id number] 16 Oct, 2019 Attention to urostomy Z43.6 and Hypertension, benign I10 [facility] [address] [facility] [id number] [address] [place] [id number] 15 Oct, 2019 [facility] [address] [facility] [id number] [address] [place] [address] 14 Oct, 2019 Neuropathy G62.9 ; Anxiety F 41.9 and Encounter for Medicare annual wellness exam Z00.00 [facility] [address] [id number] [address] [place] [address] 10 Sep, 2019 Neuropathy G62.9 ; Anxiety F 41.9 and Encounter for Medicare annual wellness exam Z00.00 [facility] [address] [id number] [address] [place] [phone] 12 Aug, 2019 Anxiety F41.9 ; Neuropathy G 62.9 and Encounter for Medicare annual wellness exam Z00.00 [facility] [address] [id number] [address] [place] [address] 31 Jul, 2019 [facility] [address] [id number] [address] [place] [address] Jul, Primary insomnia F51.01 and Anxiety F41.9 [facility] [address] [id number] [address] [place] [id number] 14 Jul, 2019 Primary insomnia F51.01 ; Ne uropathy G62.9 and Encounter for Medicare annual wellness exam Z00.00 [facility] [address] [id number] [address] [place] [address] Jun, Neuropathy G62.9 and Encount er for Medicare annual wellness exam Z00.00 [facility] [address] [id number] [address] [place] [id number] 18 Jun, 2019 Primary insomnia F51.01 [facility] [address] [id number] [address] [place] [address] 17 Jun, 2019 Primary insomnia F51.01 ; En counter for Medicare annual wellness exam Z00.00 and Neuropathy G62.9 [facility] [address] [id number] [address] [place] [address] Jun, Malignant neoplasm of colon, unspecified part of colon C18.9 and Chronic fatigue, unspecified R53.82 [facility] [address] [id number] [address] [place] [address] May, Neuropathy G62.9 and Encount er for Medicare annual wellness exam Z00.00 [facility] [address] [id number] [address] [place] [id number] 15 May, 2019 Primary insomnia F51.01 [facility] [address] [id number] [address] [place] [address] May, Neuropathy G62.9 and Anxiety F41.9 [facility] [address] [id number] [address] [place] [phone] 30 Apr, 2019 Encounter for Medicare annua l wellness exam Z00.00 [facility] [address] [id number] [address] [place] [id number] 16 Apr, 2019 Neuropathy G62.9 and Encount er for Medicare annual wellness exam Z00.00 [facility] [address] [id number] [address] [place] [id number] 26 Mar, 2019 Neuropathy G62.9 and Primary insomnia F51.01 [facility] [address] [id number] [address] [place] [address] Mar, [facility] [address] [id number] [address] [place] [address] Feb, Primary insomnia F51.01 ; Ne uropathy G62.9 and Encounter for Medicare annual wellness exam Z00.00 [facility] [address] [id number] [address] [place] [address] Feb, Neuropathy G62.9 and Encount er for Medicare annual wellness exam Z00.00 [facility] [address] [id number] [address] [place] [address] Feb, Primary insomnia F51.01 and High risk medication use Z79.899 [facility] [address] [id number] [address] [place] [id number] Jan, [facility] [address] [id number] [address] [place] [address] Jan, Neuropathy G62.9 [facility] [address] [id number] [address] [place] [address] Dec, [facility] [address] [id number] [address] [place] [address] Dec, Encounter for Medicare annua l wellness exam Z00.00 and Neuropathy G62.9 [facility] [address] [id number] [address] [place] [address] November, [facility] [address] [id number] [address] [place] [address] November, Encounter for Medicare annua l wellness exam Z00.00 ; 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 ; Mood disorder F39 ; Chronic fatigue, unspecified R53.82 and Neuropathy G62.9 [facility] [address] [id number] [address] [place] [address] November, Neuropathy G62.9 [facility] [address] [id number] [address] [place] [address] Oct, Neuropathy G62.9 [facility] [address] [id number] [address] [place] [address] Oct, Hypertension, benign I10 and Anxiety F41.9 [facility] [address] [id number] [address] [place] [address] Oct, [facility] [address] [id number] [address] [place] [phone] Oct, [facility] [address] [id number] [address] [place] [address] Oct, [facility] [address] [id number] [address] [place] [address] Oct, Neuropathy G62.9 [facility] [address] [id number] [address] [place] [address] Sep, [facility] [address] [id number] [address] [place] [address] Sep, Neuropathy G62.9 [facility] [address] [id number] [address] [place] [address] Sep, [facility] [address] [facility] [id number] [address] [place] [address] Sep, H/O malignant carcinoid tumo r of 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 and Primary insomnia F51.01 [facility] [address] [id number] [address] [place] [address] Aug, [facility] [address] [id number] [address] [place] [address] Aug, Neuropathy G62.9 [facility] [address] [id number] [address] [place] [address] Aug, [facility] [address] [facility] [id number] [address] [place] [address] Jul, Non-recurrent acute suppurat francine otitis media of left ear without spontaneous rupture of tympanic membrane H66.002 [facility] [address] [facility] [id number] [address] [place] [address] Jul, Neuropathy G62.9 [facility] [address] [facility] [id number] [address] [place] [address] Jun, [facility] [address] [facility] [id number] [address] [place] [address] Jun, [facility] [address] [facility] [id number] [address] [place] [address] Jun, Neuropathy G62.9 [facility] [address] [facility] [id number] [address] [place] [address] Jun, [facility] [address] [facility] [id number] [address] [place] [address] Jun, [facility] [address] [facility] [id number] [address] [place] [address] Jun, Lumbar neuritis M54.16 [facility] [address] [facility] [id number] [address] [place] [address] May, Neuropathy G62.9 [facility] [address] [place] [id number] [address] [place] [phone] May, [facility] [address] [place] [id number] [address] [place] [address] 05 May, 2018 Neuropathy G62.9 and Hyperte nsion, benign I10 [facility] [address] [place] [id number] [place] [address] Apr, Polyneuropathy G62.9 and Hyp ertension, benign I10 [facility] [address] [id number] [place] [address] 17 Mar, 2018 Chronic pain syndrome G89.4 and Hypertension, benign I10 [place] [id number] [place] [address] Mar, Polyneuropathy G62.9 and Hyp ertension, benign I10 [facility] [address] [place] [id number] [address] [place] [address] Feb, [facility] [address] [phone] Feb, Hypertension, benign I10 [facility] [address] [place] [id number] [place] [address] Feb, Hypertension, benign I10 ; P olyneuropathy G62.9 and Primary insomnia F51.01 [facility] [address] [place] [id number] [address] [place] [address] Jan, Hypertension, benign I10 and Polyneuropathy G62.9 [facility] [address] [place] [id number] [address] [place] [address] Jan, Hypertension, benign I10 and Neuropathy G62.9 [facility] [address] [place] [id number] [address] [place] [address] Jan, [facility] [address] [place] [id number] [address] [place] [address] Dec, Polyneuropathy G62.9 [facility] [address] [id number] [address] [place] [address] Dec, Mood disorder F39 [facility] [address] [id number] [address] [place] [address] November, Polyneuropathy G62.9 [facility] [address] [facility] [id number] [address] [place] [address] November, Medicare annual wellness vis it, initial Z00.00 [facility] [address] [id number] [address] [place] [address] November, Mood disorder F39 [facility] [address] [id number] [address] [place] [address] Oct, Polyneuropathy G62.9 [facility] [address] [facility] [id number] [address] [place] [address] Oct, [facility] [address] [facility] [id number] [address] [place] [address] Oct, [facility] [address] [facility] [id number] [address] [place] [address] Oct, Mood disorder F39 ; Attentio n to urostomy Z43.6 ; Chronic pain syndrome G89.4 and Polyneuropathy G62.9 [facility] [address] [facility] [id number] [address] [place] [address] Sep, Polyneuropathy G62.9 [facility] [address] [id number] [address] [place] [address] Sep, [facility] [address] [id number] [address] [place] [address] Sep, Polyneuropathy G62.9 [facility] [address] [facility] [id number] [address] [place] [address] Aug, Polyneuropathy G62.9 [facility] [address] [facility] [id number] [address] [place] [address] Aug, Malignant neoplasm of colon, unspecified part of colon C18.9 and Polyneuropathy G62.9 [facility] [address] [facility] [id number] [address] [place] [address] Aug, Neuropathy G62.9 and Polyneu ropathy G62.9 [facility] [address] [facility] [id number] [address] [place] [address] Jul, Encounter for drug screening Z02.83 [facility] [address] [id number] [address] [place] [address] Jul, Polyneuropathy G62.9 [facility] [address] [facility] [id number] [address] [place] [address] Jul, [facility] [address] [facility] [id number] [address] [place] [phone] Jul, Neuropathy G62.9 and Anxiety F41.9 [facility] [address] [facility] [id number] [address] [place] [address] Jul, [facility] [address] [facility] [id number] [address] [place] [address] Jul, [facility] [address] [facility] [id number] [address] [place] [address] Jul, [facility] [address] [facility] [id number] [address] [place] [address] Jul, Polyneuropathy G62.9 [facility] [address] [id number] [address] [place] [address] Jul, [facility] [address] [facility] [id number] [address] [place] [address] Jun, [facility] [address] [facility] [id number] [address] [place] [address] Jun, [facility] [address] [facility] [id number] [address] [place] [address] Jun, [facility] [id number] [id number] [place] [address] 07 Jun, 2017 Encounter for dental examina tion Z01.20 [facility] [address] [place] [id number] [address] [place] [address] Jun, Polyneuropathy G62.9 and Anx iety F41.9 [facility] [address] [place] [id number] [address] [place] [address] Jun, [facility] [address] [id number] [place] [address] May, Dental examination Z01.20 [facility] [address] [place] [id number] [address] [place] [address] May, Polyneuropathy G62.9 [place] [id number] [place] [id number] [address] [place] [address] Apr, Polyneuropathy G62.9 [facility] [address] [place] [id number] [address] [place] [address] Apr, Polyneuropathy G62.9 [facility] [address] [place] [id number] [place] [address] Apr, Hypertension, benign I10 ; P olyneuropathy G62.9 and Anxiety F41.9 [place] [address] [place] [id number] [address] [place] [address] Apr, Primary insomnia F51.01 and Polyneuropathy G62.9 [facility] [address] [place] [id number] [address] [place] [address] Apr, Primary insomnia F51.01 and Polyneuropathy G62.9 [facility] [address] [place] [id number] [address] [place] [address] Mar, Primary insomnia F51.01 [facility] [address] [place] [id number] [address] [place] [address] Mar, [place] [address] [id number] [address] [place] [address], [place] [address] Mar, Polyneuropathy G62.9 [facility] [address] [id number] [address] [place] [address], [place] [address] Feb, Primary insomnia F51.01 [facility] [address] [id number] [address] [place] [address], [place] [address] Feb, [facility] [address] [id number] [address] [place] [address], [place] [address] Feb, [facility] [address] [id number] [address] [place] [address], [place] [address] Feb, Polyneuropathy G62.9 [facility] [address] [id number] [address] [place] [address], [place] [address] Feb, Primary insomnia F51.01 [facility] [address] [id number] [address] [place] [address], [place] [address] Jan, [facility] [address] [id number] [address] [place] [address], [place] [address] Jan, [facility] [address] [id number] [address] [place] [address], [place] [address] Dec, [facility] [address] [id number] [address] [place] [address] Dec, Primary insomnia F51.01 [facility] [address] [id number] [address] [place] [address], [place] [address] Dec, Primary insomnia F51.01 [facility] [address] [id number] [address] [place] [address], [place] [address] Dec, [facility] [address] [id number] [address] [place] [address] Dec, [facility] [address] [id number] [address] [place] [address] Dec, [facility] [address] [id number] [address] [place] [address] Dec, [facility] [address] [facility] [id number] [address] [place] [address] November, Primary insomnia F51.01 and Polyneuropathy G62.9 [facility] [address] [id number] [address] [place] [address] November, [facility] [address] [facility] [id number] [address] [place] [address] November, Abdominal pain, left lower q uadrant R10.32 [facility] [address] [facility] [id number] [address] [place] [address] November, [facility] [address] [facility] [id number] [address] [place] [address] Oct, [facility] [address] [facility] [id number] [address] [place] [address] Oct, Abdominal pain, left lower q uadrant R10.32 ; 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 and Neuropathy G62.9 [facility] [address] [facility] [id number] [address] [place] [address] Oct, [facility] [address] [facility] [id number] [address] [place] [address] Sep, [facility] [id number] [place] [id number] Sep, [facility] [address] [facility] [id number] [address] [place] [address] Sep, [facility] [address] [facility] [id number] [address] [place] [address] Aug, [facility] [address] [facility] [id number] [address] [place] [address] Aug, [facility] [address] [facility] [id number] [address] [place] [address] Aug, Abdominal pain, left lower q uadrant R10.32 ; Neuropathy G62.9 and Anxiety F41.[address] [facility] [address] [id number] [place] [address] Jul, [facility] [address] [id number] [address] [place] [address] Jul, [facility] [address] [id number] [address] [place] [address] Jul, [facility] [address] [id number] [address] [place] [address] Jul, [facility] [address] [id number] [address] [place] [address] Jul, [facility] [address] [id number] [address] [place] [address] Jun, [facility] [address] [id number] [address] [place] [address] May, [facility] [address] [id number] [address] [place] [address] May, [facility] [address] [id number] [address] [place] [phone] Apr, [facility] [address] [facility] [id number] [address] [place] [phone] Apr, Muscle spasms of both lower extremities M62.838 and Cellulitis, unspecified cellulitis site L03.90 [facility] [address] [id number] [address] [place] [id number] Apr, [facility] [address] [id number] [address] [place] [id number] 23 Mar, 2016 Generalized abdominal pain R 10.84 [facility] [address] [id number] [address] [place] [phone] 20 Mar, 2016 [facility] [address] [facility] [id number] [address] [place] [id number] 14 Mar, 2016 [facility] [address] [id number] [address] [place] [id number] 14 Mar, 2015 [facility] [address] [id number] [address] [place] [id number] 13 Mar, 2016 [facility] [address] [id number] [address] [place] [id number] 12 Mar, 2016 [facility] [address] [id number] [address] [place] [phone] 09 Mar, 2016 [facility] [address] [id number] [address] [place] [id number] 06 Mar, 2016 [facility] [address] [id number] [address] [place] [id number] Feb, Other specified diseases of anus and rectum K62.89 [facility] [address] [id number] [address] [place] [id number] Feb, [facility] [address] [id number] [address] [place] [id number] Feb, Dizziness R42 [facility] [address] [id number] [address] [place] [id number] Feb, [facility] [address] [id number] [address] [place] [id number] Jan, Polyneuropathy G62.9 [facility] [address] [id number] [address] [place] [address] Jan, Other specified diseases of anus and rectum K62.89 [facility] [address] [id number] [address] [place] [address] Jan, [facility] [address] [id number] [address] [place] [id number] 16 Jan, 2016 [facility] [address] [id number] [address] [place] [address] 15 Jan, 2016 [facility] [address] [id number] [address] [place] [address] Jan, Dizziness R42 [facility] [address] [id number] [address] [place] [address], [place] [address] Dec, [facility] [address] [id number] [address] [place] [address], [place] [address] Dec, [facility] [address] [id number] [address] [place] [address], [place] [address] Dec, [facility] [address] [id number] [address] [place] [address], [place] [address] Dec, Dizziness R42 [facility] [address] [id number] [address] [place] [address], [place] [address] November, [facility] [address] [id number] [address] [place] [address], [place] [address] Oct, [facility] [address] [id number] [address] [place] [address], [place] [address] Oct, [facility] [address] [id number] [address] [place] [address], [place] [address] Oct, [facility] [address] [id number] [address] [place] [address], [place] [address] Oct, [facility] [address] [id number] [address] [place] [address], [place] [address] Sep, [facility] [address] [id number] [address] [place] [address], [place] [address] Sep, Primary insomnia F51.01 [facility] [address] [id number] [address] [place] [address], [place] [address] Sep, Primary insomnia F51.01 [facility] [address] [id number] [address] [place] [address], [place] [address] Sep, [facility] [address] [id number] [address] [place] [address], [place] [address] Aug, [facility] [address] [id number] [place] [address] Aug, [facility] [address] [id number] [address] [place] [address] Aug, Primary insomnia F51.01 ; Mo od disorder F39 ; Nausea and vomiting, unspecified intactability, vomiting of unspecified type R11.2 and Diarrhea R19.7 [facility] [address] [id number] [address] [place] [address] Aug, [facility] [address] [id number] [address] [place] [address] Aug, Folliculitis L73.9 [facility] [address] [address] Aug, [facility] [id number] [place] [address] Aug, [facility] [id number] [place] [address] Jul, Folliculitis L73.9 [facility] [address] [id number] [address] [place] [address] Jul, [facility] [address] [address] Jun, Folliculitis L73.9 [facility] [address] [id number] [address] [place] [address] Jun, [facility] [address] [id number] [address] [place] [address] May, Polyneuropathy G62.9 [facility] [address] [id number] [address] [place] [address] May, Other specified diseases of anus and rectum K62.89 [facility] [address] [id number] [address] [place] [address] May, [facility] [id number] [place] [address] May, Primary insomnia F51.01 [facility] [address] [id number] [address] [place] [address] May, [facility] [address] [id number] [address] [place] [address] May, [facility] [address] [id number] [address] [place] [address] Apr, Other specified diseases of anus and rectum K62.89 ; Chronic fatigue R53.82 ; Urinary tract infection, site not specified N39.0 and Enterococcus as the cause of diseases classified elsewhere B95.2 [facility] [address] [id number] [address] [place] [address] 16 Apr, 2015 [facility] [address] [id number] [address] [place] [address] 15 Apr, 2015 [facility] [address] [id number] [address] [place] [address] Apr, 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 [facility] [address] [id number] [address] [place] [address] 05 Apr, 2015 [facility] [address] [id number] [address] [place] [address] 26 Mar, 2015 [facility] [address] [id number] [address] [place] [address] 23 Mar, 2015 [facility] [address] [id number] [address] [place] [address] 17 Mar, 2015 [facility] [address] [id number] [address] [place] [address] 14 Mar, 2015 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 [facility] [address] [id number] [address] [place] [address] 12 Mar, 2015 [facility] [address] [id number] [address] [place] [address] 11 Mar, 2015 [facility] [address] [id number] [address] [place] [address] Mar, [facility] [address] [id number] [address] [place] [address] Mar, [facility] [address] [id number] [address] [place] [address] Feb, [facility] [address] [id number] [address] [place] [address] Feb, [facility] [address] [id number] [address] [place] [address] Feb, [facility] [address] [id number] [address] [place] [address] Jan, [facility] [address] [id number] [address] [place] [address] Jan, Nausea 787.02 and Neuropathy 355.9 [facility] [address] [id number] [address] [place] [address] Jan, [facility] [address] [id number] [address] [place] [address] Jan, [facility] [address] [id number] [address] [place] [address] Jan, [facility] [address] [id number] [address] [place] [id number] Jan, Dental examination V72.2 [facility] [address] [id number] [address] [place] [address] Jan, [facility] [address] [id number] [address] [place] [address] Dec, [facility] [address] [id number] [address] [place] [address] Dec, [facility] [address] [id number] [address] [place] [address] Dec, Neuropathy 355.9 [facility] [address] [id number] [address] [place] [address], [place] [address] November, [facility] [address] [id number] [address] [place] [address], [place] [address] November, [facility] [address] [id number] [address] [place] [address], [place] [address] November, [facility] [address] [id number] [address] [place] [address], [place] [address] Oct, [facility] [address] [id number] [address] [place] [address], [place] [address] Oct, [facility] [address] [id number] [address] [place] [address], [place] [address] Sep, [facility] [address] [id number] [address] [place] [address], [place] [address] Sep, [facility] [address] [id number] [address] [place] [address], [place] [address] Sep, [facility] [address] [id number] [address] [place] [address], [place] [address] Sep, [facility] [address] [id number] [address] [place] [address], [place] [address] Sep, [facility] [address] [id number] [address] [place] [address], [place] [address] Sep, [facility] [address] [id number] [address] [place] [address], [place] [address] Sep, [facility] [address] [id number] [address] [place] [address], [place] [address] Sep, [facility] [address] [id number] [address] [place] [address], [place] [address] Aug, [facility] [address] [id number] [address] [place] [address], [place] [address] Aug, [facility] [address] [id number] [address] [place] [address], [place] [address] Aug, 2014 [facility] [address] [id number] [address] [place] [address], [place] [address] Aug, 2014 [facility] [address] [id number] [address] [place] [address], [place] [address] Aug, 2014 [facility] [address] [id number] [address] [place] [address], [place] [address] Aug, 2014 [facility] [address] [id number] [address] [place] [address], [place] [address] Aug, 2014 [facility] [address] [id number] [address] [place] [address], [place] [address] Aug, [facility] [address] [id number] [address] [place] [address], [place] [address] Jul, [facility] [address] [id number] [address] [place] [address], [place] [address] Jul, [facility] [address] [id number] [address] [place] [address], [place] [address] Jun, [facility] [address] [id number] [address] [place] [address], [place] [address] Jun, [facility] [address] [id number] [address] [place] [address], [place] [address] Jun, [facility] [address] [id number] [address] [place] [address], [place] [address] Jun, [facility] [address] [id number] [address] [place] [address], [place] [address] Jun, [facility] [address] [id number] [address] [place] [address], [place] [address] Jun, [facility] [address] [id number] [address] [place] [address], [place] [address] Jun, [facility] [address] [id number] [address] [place] [address], [place] [address] Jun, [facility] [address] [id number] [address] [place] [address], [place] [address] Jun, [facility] [address] [id number] [address] [place] [address], [place] [address] Jun, [facility] [address] [id number] [address] [place] [address], [place] [address] Jun, [facility] [address] [id number] [address] [place] [address], [place] [address] May, [facility] [address] [id number] [address] [place] [address], [place] [address] May, [facility] [address] [id number] [address] [place] [address], [place] [address] May, [facility] [address] [id number] [address] [place] [address], [place] [address] May, [facility] [address] [id number] [address] [place] [address], [place] [address] May, [facility] [address] [id number] [address] [place] [address], [place] [address] May, [facility] [address] [id number] [address] [place] [address], [place] [address] May, [facility] [address] [id number] [address] [place] [address], [place] [address] May, [facility] [address] [id number] [address] [place] [address], [place] [address] May, [facility] [address] [id number] [address] [place] [address], [place] [address] Apr, [facility] [address] [id number] [address] [place] [address], [place] [address] Apr, [facility] [address] [id number] [address] [place] [address], [place] [address] Apr, [facility] [address] [id number] [address] [place] [address], [place] [address] Apr, [facility] [address] [id number] [facility] [place] [address] Apr, [facility] [address] [id number] [address] [place] [address], [place] [address] Mar, [facility] [address] [id number] [address] [place] [address], [place] [address] Mar, [facility] [address] [id number] [address] [place] [address], [place] [address] Feb, [facility] [address] [id number] [address] [place] [address], [place] [address] Feb, [facility] [address] [id number] [address] [place] [address], [place] [address] Feb, [facility] [address] [id number] [address] [place] [address], [place] [address] Feb, [facility] [address] [id number] [address] [place] [address], [place] [address] Feb, [facility] [address] [id number] [address] [place] [address], [place] [address] Feb, [facility] [address] [id number] [address] [place] [address], [place] [address] Jan, [facility] [address] [id number] [address] [place] [address], [place] [address] Jan, [facility] [address] [id number] [address] [place] [address], [place] [address] Jan, [facility] [address] [id number] [address] [place] [address], [place] [address] Jan, [facility] [address] [id number] [address] [place] [address], [place] [address] Jan, [facility] [address] [id number] [address] [place] [address], [place] [address] Jan, [facility] [address] [id number] [address] [place] [address], [place] [address] Jan, [facility] [address] [id number] [facility] [place] [address] Jan, [facility] [address] [id number] [facility] [place] [address] Jan, [facility] [address] [id number] [facility] [place] [address] Jan, [facility] [address] [id number] [address] [place] [address], [place] [address] Jan, [facility] [address] [id number] [address] [place] [address], [place] [address] Dec, [facility] [address] [id number] [address] [place] [address], [place] [address] Dec, [facility] [address] [id number] [address] [place] [address], [place] [address] Dec, [facility] [address] [id number] [address] [place] [address], [place] [address] Dec, [facility] [address] [id number] [address] [place] [address], [place] [address] Dec, [facility] [address] [id number] [address] [place] [address], [place] [address] Dec, [facility] [address] [id number] [address] [place] [address], [place] [address] November, [facility] [address] [id number] [address] [place] [address], [place] [address] November, [facility] [address] [id number] [address] [place] [address], [place] [address] November, [facility] [address] [id number] [address] [place] [address], [place] [address] November, [facility] [address] [id number] [address] [place] [address], [place] [address] November, [facility] [address] [id number] [facility] [place] [address] November, [facility] [address] [id number] [facility] [place] [address] Oct, [facility] [address] [id number] [facility] [place] [address] Oct, [facility] [address] [id number] [address] [place] [address], [place] [address] Oct, [facility] [address] [id number] [address] [place] [address], [place] [address] Oct, [facility] [address] [id number] [address] [place] [address], [place] [address] Sep, [facility] [address] [id number] [address] [place] [address], [place] [address] Sep, [facility] [address] [id number] [address] [place] [address], [place] [address] Sep, [facility] [address] [id number] [address] [place] [address], [place] [address] Sep, [facility] [address] [id number] [address] [place] [address], [place] [address] Sep, [facility] [address] [id number] [address] [place] [address], [place] [address] Aug, [facility] [address] [id number] [address] [place] [address], [place] [address] Aug, [facility] [address] [id number] [address] [place] [address], [place] [address] Aug, [facility] [address] [id number] [address] [place] [address], [place] [address] 17 Aug, 2013 [facility] [address] [id number] [address] [place] [address], [place] [address] 14 Aug, 2013 [facility] [address] [place] [id number] May, [facility] [address] [id number] [address] [place] [address], [place] [address] May, [facility] [address] [id number] [address] [place] [address] May, [facility] [address] [id number] [address] [place] [address], [place] [address] May, [facility] [address] [id number] [address] [place] [address] May, [facility] [address] [id number] [address] [place] [address], [place] [address] Apr, [facility] [address] [id number] [address] [place] [address] Apr, [facility] [address] [id number] [address] [place] [address], [place] [address] Apr, [facility] [address] [id number] [address] [place] [id number] Apr, [facility] [address] [id number] [address] [place] [id number] Apr, [facility] [address] [id number] [address] [place] [id number] Apr, [facility] [address] [id number] [address] [place] [id number] Apr, [facility] [address] [id number] [address] [place] [id number] 28 Mar, 2013 [facility] [address] [id number] [address] [place] [id number] 25 Mar, 2013 [facility] [address] [id number] [address] [place] [id number] 24 Mar, 2013 [facility] [address] [id number] [address] [place] [id number] 16 Mar, 2013 [facility] [address] [id number] [address] [place] [address], [place] [address] Mar, [facility] [address] [id number] [address] [place] [address], [place] [address] Mar, [facility] [address] [id number] [address] [place] [address], [place] [address] Feb, [facility] [address] [id number] [address] [place] [address], [place] [address] Feb, [facility] [address] [id number] [address] [place] [address], [place] [address] Feb, [facility] [address] [id number] [address] [place] [address], [place] [address] Feb, [facility] [address] [id number] [address] [place] [address], [place] [address] Feb, [facility] [address] [id number] [address] [place] [address], [place] [address] Feb, [facility] [address] [id number] [address] [place] [address], [place] [address] Jan, [facility] [address] [id number] [address] [place] [address], [place] [address] Dec, [facility] [address] [id number] [address] [place] [address], [place] [address] Dec, [facility] [address] [id number] [address] [place] [address], [place] [address] Dec, [facility] [address] [id number] [address] [place] [address], [place] [address] Dec, [facility] [address] [id number] [address] [place] [address], [place] [address] Dec, [facility] [address] [id number] [address] [place] [address], [place] [address] 18 Dec, 2012 [facility] [address] [id number] [address] [place] [address], [place] [address] 17 Dec, 2012 [facility] [address] [id number] [address] [place] [address], [place] [address] Dec, [facility] [address] [id number] [address] [place] [address], [place] [address] Dec, [facility] [address] [id number] [address] [place] [address], [place] [address] November, [facility] [address] [id number] [address] [place] [address], [place] [address] November, [facility] [address] [id number] [address] [place] [address], [place] [address] Oct, [facility] [address] [id number] [address] [place] [address], [place] [address] Sep, [facility] [address] [id number] [address] [place] [address], [place] [address] Sep, [facility] [address] [id number] [address] [place] [address], [place] [address] Sep, [facility] [address] [id number] [address] [place] [address], [place] [address] Sep, [facility] [address] [id number] [address] [place] [address], [place] [address] Aug, [facility] [address] [id number] [address] [place] [address], [place] [address] Aug, [facility] [address] [id number] [address] [place] [address], [place] [address] Jul, [facility] [address] [id number] [address] [place] [address], [place] [address] Jul, [facility] [address] [id number] [address] [place] [address], [place] [address] Jul, [facility] [address] [id number] [address] [place] [address], [place] [address] Sep, [facility] [address] [id number] [address] [place] [id number] Sep, [facility] [address] [facility] [id number] [address] [address] Sep, IMMUNIZATIONS No Known Immunizations SOCIAL HISTORY [...] bowel obstruction, Dehydration -[facility] 01/01/17 Hospitalization History [facility]- UTI/Sepsis 01/18/2018 Hospitalization History [facility] - infection 4 days 05/2018
--- OUTSIDE RECORDS SUMMARY | 2020-01-14 23:02 | XMS REPORT ---
Author Author Melvin BENTLEY Organization [facility] Address [address] [place] [address] Care Team Providers Care Process Checker Name Role Phone LINDA BENTLEY Unavailable PROBLEMS Type Condition ICD9-CM Code GSO40-TD Code Onset Dates Condition S tatus SNOMED Code Problem Incontinence of feces, unspecified fecal incontinence type R15.9 Active 30452803 Problem Primary insomnia F51.01 Active 193 168955 Problem Hydronephrosis with ureteral stricture, not else where classified N13.1 Active 11933333 Problem Chronic fatigue, unspecified R53.82 A ctive 295665540 Problem Hypertension, benign I10 Active 79712029 Problem Mood disorder F39 Active 359727 05 Problem Neuropathy G62.9 Active 620606679 Problem Chronic pain syndrome G89.4 Active 766281826 Problem Abdominal pain, left lower quadrant R10.32 Active 924967097 Problem 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 Active 730687254 Problem 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 272406808 Problem Anxiety F41.9 Active 83179946 Problem Polyneuropathy G62.9 Active 49170 000 Problem Malignant neoplasm of colon, unspecified part of colon C18.9 Active 406009404 Problem Attention to urostomy Z43.6 Active 222418641 ALLERGIES No Information ENCOUNTERS Encounter Location Date Diagnosis [facility] [address] [facility] [id number] [address] [place] [address] 16 Oct, 2019 Attention to urostomy Z43.6 and Hypertension, benign I10 [facility] [address] [facility] [id number] [address] [place] [address] 15 Oct, 2019 [facility] [address] [facility] [id number] [address] [place] [address] 14 Oct, 2019 Neuropathy G62.9 ; Anxiety F 41.9 and Encounter for Medicare annual wellness exam Z00.00 [facility] [address] [id number] [address] [place] [address] 10 Sep, 2019 Neuropathy G62.9 ; Anxiety F 41.9 and Encounter for Medicare annual wellness exam Z00.00 [facility] [address] [id number] [address] [place] [address] 12 Aug, 2019 Anxiety F41.9 ; Neuropathy G 62.9 and Encounter for Medicare annual wellness exam Z00.00 [facility] [address] [id number] [address] [place] [address] 31 Jul, 2019 [facility] [address] [id number] [address] [place] [address] Jul, Primary insomnia F51.01 and Anxiety F41.9 [facility] [address] [id number] [address] [place] [address] 14 Jul, 2019 Primary insomnia F51.01 ; Ne uropathy G62.9 and Encounter for Medicare annual wellness exam Z00.00 [facility] [address] [id number] [address] [place] [address] Jun, Neuropathy G62.9 and Encount er for Medicare annual wellness exam Z00.00 [facility] [address] [id number] [address] [place] [address] 18 Jun, 2019 Primary insomnia F51.01 [facility] [address] [id number] [address] [place] [address] 17 Jun, 2019 Primary insomnia F51.01 ; En counter for Medicare annual wellness exam Z00.00 and Neuropathy G62.9 [facility] [address] [id number] [address] [place] [address] Jun, Malignant neoplasm of colon, unspecified part of colon C18.9 and Chronic fatigue, unspecified R53.82 [facility] [address] [id number] [address] [place] [address] May, Neuropathy G62.9 and Encount er for Medicare annual wellness exam Z00.00 [facility] [address] [id number] [address] [place] [address] 15 May, 2019 Primary insomnia F51.01 [facility] [address] [id number] [address] [place] [address] May, Neuropathy G62.9 and Anxiety F41.9 [facility] [address] [id number] [address] [place] [address] 30 Apr, 2019 Encounter for Medicare annua l wellness exam Z00.00 [facility] [address] [id number] [address] [place] [address] 16 Apr, 2019 Neuropathy G62.9 and Encount er for Medicare annual wellness exam Z00.00 [facility] [address] [id number] [address] [place] [address] 26 Mar, 2019 Neuropathy G62.9 and Primary insomnia F51.01 [facility] [address] [id number] [address] [place] [address] Mar, [facility] [address] [id number] [address] [place] [address] Feb, Primary insomnia F51.01 ; Ne uropathy G62.9 and Encounter for Medicare annual wellness exam Z00.00 [facility] [address] [id number] [address] [place] [address] Feb, Neuropathy G62.9 and Encount er for Medicare annual wellness exam Z00.00 [facility] [address] [id number] [address] [place] [address] Feb, Primary insomnia F51.01 and High risk medication use Z79.899 [facility] [address] [id number] [address] [place] [address] Jan, [facility] [address] [id number] [address] [place] [address] Jan, Neuropathy G62.9 [facility] [address] [id number] [address] [place] [address] Dec, [facility] [address] [id number] [address] [place] [address] Dec, Encounter for Medicare annua l wellness exam Z00.00 and Neuropathy G62.9 [facility] [address] [id number] [address] [place] [address] November, [facility] [address] [id number] [address] [place] [address] November, Encounter for Medicare annua l wellness exam Z00.00 ; 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 ; Mood disorder F39 ; Chronic fatigue, unspecified R53.82 and Neuropathy G62.9 [facility] [address] [id number] [address] [place] [address] November, Neuropathy G62.9 [facility] [address] [id number] [address] [place] [address] Oct, Neuropathy G62.9 [facility] [address] [id number] [address] [place] [address] Oct, Hypertension, benign I10 and Anxiety F41.9 [facility] [address] [id number] [address] [place] [address] Oct, [facility] [address] [id number] [address] [place] [address] Oct, [facility] [address] [id number] [address] [place] [address] Oct, [facility] [address] [id number] [address] [place] [address] Oct, Neuropathy G62.9 [facility] [address] [id number] [address] [place] [address] Sep, [facility] [address] [id number] [address] [place] [address] Sep, Neuropathy G62.9 [facility] [address] [id number] [address] [place] [address] Sep, [facility] [address] [facility] [id number] [address] [place] [address] Sep, H/O malignant carcinoid tumo r of 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 and Primary insomnia F51.01 [facility] [address] [id number] [address] [place] [address] Aug, [facility] [address] [id number] [address] [place] [address] Aug, Neuropathy G62.9 [facility] [address] [id number] [address] [place] [address] Aug, [facility] [address] [facility] [id number] [address] [place] [address] Jul, Non-recurrent acute suppurat francine otitis media of left ear without spontaneous rupture of tympanic membrane H66.002 [facility] [address] [facility] [id number] [address] [place] [address] Jul, Neuropathy G62.9 [facility] [address] [facility] [id number] [address] [place] [address] Jun, [facility] [address] [facility] [id number] [address] [place] [address] Jun, [facility] [address] [facility] [id number] [address] [place] [address] Jun, Neuropathy G62.9 [facility] [address] [facility] [id number] [address] [place] [address] Jun, [facility] [address] [facility] [id number] [address] [place] [address] Jun, [facility] [address] [facility] [id number] [address] [place] [address] Jun, Lumbar neuritis M54.16 [facility] [address] [facility] [id number] [address] [place] [address] May, Neuropathy G62.9 [facility] [address] [place] [id number] [address] [place] [address] May, [facility] [address] [place] [address] [id number] [address] [place] [address] 05 May, 2018 Neuropathy G62.9 and Hyperte nsion, benign I10 [facility] [address] [place] [id number] [place] [address] Apr, Polyneuropathy G62.9 and Hyp ertension, benign I10 [facility] [address] [place] [id number] [place] [address] 17 Mar, 2018 Chronic pain syndrome G89.4 and Hypertension, benign I10 [place] [address] [place] [id number] [place] [address] Mar, Polyneuropathy G62.9 and Hyp ertension, benign I10 [facility] [address] [place] [id number] [address] [place] [address] Feb, [facility] [address] [address] Feb, Hypertension, benign I10 [facility] [address] [place] [id number] [place] [address] Feb, Hypertension, benign I10 ; P olyneuropathy G62.9 and Primary insomnia F51.01 [facility] [address] [place] [id number] [address] [place] [address] Jan, Hypertension, benign I10 and Polyneuropathy G62.9 [facility] [address] [place] [id number] [address] [place] [address] Jan, Hypertension, benign I10 and Neuropathy G62.9 [facility] [address] [place] [id number] [address] [place] [address] Jan, [facility] [address] [place] [id number] [address] [place] [address] Dec, Polyneuropathy G62.9 [facility] [address] [id number] [address] [place] [address] Dec, Mood disorder F39 [facility] [address] [id number] [address] [place] [address] November, Polyneuropathy G62.9 [facility] [address] [facility] [id number] [address] [place] [address] November, Medicare annual wellness vis it, initial Z00.00 [facility] [address] [id number] [address] [place] [address] November, Mood disorder F39 [facility] [address] [id number] [address] [place] [address] Oct, Polyneuropathy G62.9 [facility] [address] [facility] [id number] [address] [place] [address] Oct, [facility] [address] [facility] [id number] [address] [place] [address] Oct, [facility] [address] [facility] [id number] [address] [place] [address] Oct, Mood disorder F39 ; Attentio n to urostomy Z43.6 ; Chronic pain syndrome G89.4 and Polyneuropathy G62.9 [facility] [address] [facility] [id number] [address] [place] [address] Sep, Polyneuropathy G62.9 [facility] [address] [id number] [address] [place] [address] Sep, [facility] [address] [id number] [address] [place] [address] Sep, Polyneuropathy G62.9 [facility] [address] [facility] [id number] [address] [place] [address] Aug, Polyneuropathy G62.9 [facility] [address] [facility] [id number] [address] [place] [address] Aug, Malignant neoplasm of colon, unspecified part of colon C18.9 and Polyneuropathy G62.9 [facility] [address] [facility] [id number] [address] [place] [address] Aug, Neuropathy G62.9 and Polyneu ropathy G62.9 [facility] [address] [facility] [id number] [address] [place] [address] Jul, Encounter for drug screening Z02.83 [facility] [address] [id number] [address] [place] [address] Jul, Polyneuropathy G62.9 [facility] [address] [facility] [id number] [address] [place] [address] Jul, [facility] [address] [facility] [id number] [address] [place] [address] Jul, Neuropathy G62.9 and Anxiety F41.9 [facility] [address] [facility] [id number] [address] [place] [address] Jul, [facility] [address] [facility] [id number] [address] [place] [address] Jul, [facility] [address] [facility] [id number] [address] [place] [address] Jul, [facility] [address] [facility] [id number] [address] [place] [address] Jul, Polyneuropathy G62.9 [facility] [address] [id number] [address] [place] [address] Jul, [facility] [address] [facility] [id number] [address] [place] [address] Jun, [facility] [address] [facility] [id number] [address] [place] [address] Jun, [facility] [address] [facility] [id number] [address] [place] [address] Jun, [facility] [address] [id number] [place] [address] 07 Jun, 2017 Encounter for dental examina tion Z01.20 [facility] [address] [place] [id number] [address] [place] [address] Jun, Polyneuropathy G62.9 and Anx iety F41.9 [facility] [address] [place] [id number] [address] [place] [address] Jun, [facility] [address] [id number] [place], [place] [address] May, Dental examination Z01.20 [facility] [address] [place] [id number] [address] [place] [address] May, Polyneuropathy G62.9 [place] [id number] [place] [id number] [address] [place] [address] Apr, Polyneuropathy G62.9 [facility] [address] [place] [id number] [address] [place] [address] Apr, Polyneuropathy G62.9 [facility] [address] [place] [id number] [place] [address] Apr, Hypertension, benign I10 ; P olyneuropathy G62.9 and Anxiety F41.9 [place] [address] [place] [id number] [address] [place] [address] Apr, Primary insomnia F51.01 and Polyneuropathy G62.9 [facility] [address] [place] [id number] [address] [place] [address] Apr, Primary insomnia F51.01 and Polyneuropathy G62.9 [facility] [address] [place] [id number] [address] [place] [address] Mar, Primary insomnia F51.01 [facility] [address] [place] [id number] [address] [place] [address] Mar, [place] [address] [id number] [address] [place] [address], [place] [address] Mar, Polyneuropathy G62.9 [facility] [address] [id number] [address] [place] [address], [place] [address] Feb, Primary insomnia F51.01 [facility] [address] [id number] [address] [place] [address], [place] [address] Feb, [facility] [address] [id number] [address] [place] [address], [place] [address] Feb, [facility] [address] [id number] [address] [place] [address], [place] [address] Feb, Polyneuropathy G62.9 [facility] [address] [id number] [address] [place] [address], [place] [address] Feb, Primary insomnia F51.01 [facility] [address] [id number] [address] [place] [address], [place] [address] Jan, [facility] [address] [id number] [address] [place] [address], [place] [address] Jan, [facility] [address] [id number] [address] [place] [address], [place] [address] Dec, [facility] [address] [id number] [address] [place] [address] Dec, Primary insomnia F51.01 [facility] [address] [id number] [address] [place] [address], [place] [address] Dec, Primary insomnia F51.01 [facility] [address] [id number] [address] [place] [address], [place] [address] Dec, [facility] [address] [id number] [address] [place] [address] Dec, [facility] [address] [id number] [address] [place] [address] Dec, [facility] [address] [id number] [address] [place] [address] Dec, [facility] [address] [facility] [id number] [address] [place] [address] November, Primary insomnia F51.01 and Polyneuropathy G62.9 [facility] [address] [id number] [address] [place] [address] November, [facility] [address] [facility] [id number] [address] [place] [address] November, Abdominal pain, left lower q uadrant R10.32 [facility] [address] [facility] [id number] [address] [place] [address] November, [facility] [address] [facility] [id number] [address] [place] [address] Oct, [facility] [address] [facility] [id number] [address] [place] [address] Oct, Abdominal pain, left lower q uadrant R10.32 ; 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 and Neuropathy G62.9 [facility] [address] [facility] [id number] [address] [place] [address] Oct, [facility] [address] [facility] [id number] [address] [place] [address] Sep, [facility] [id number] [place] [id number] Sep, [facility] [address] [facility] [id number] [address] [place] [address] Sep, [facility] [address] [facility] [id number] [address] [place] [address] Aug, [facility] [address] [facility] [id number] [address] [place] [address] Aug, [facility] [address] [facility] [id number] [address] [place] [address] Aug, Abdominal pain, left lower q uadrant R10.32 ; Neuropathy G62.9 and Anxiety F41.9 [facility] [address] [id number] [place] [address] Jul, [facility] [address] [id number] [address] [place] [address] Jul, [facility] [address] [id number] [address] [place] [address] Jul, [facility] [address] [id number] [address] [place] [id number] Jul, [facility] [address] [id number] [address] [place] [id number] Jul, [facility] [address] [id number] [address] [place] [id number] Jun, [facility] [address] [id number] [address] [place] [id number] May, [facility] [address] [id number] [address] [place] [phone] May, [facility] [address] [id number] [address] [place] [id number] Apr, [facility] [address] [facility] [id number] [address] [place] [id number] Apr, Muscle spasms of both lower extremities M62.838 and Cellulitis, unspecified cellulitis site L03.90 [facility] [address] [id number] [address] [place] [id number] Apr, [facility] [address] [id number] [address] [place] [id number] 23 Mar, 2016 Generalized abdominal pain R 10.84 [facility] [address] [id number] [address] [place] [id number] 20 Mar, 2016 [facility] [address] [facility] [id number] [address] [place] [id number] 14 Mar, 2016 [facility] [address] [id number] [address] [place] [id number] 14 Mar, 2015 [facility] [address] [id number] [address] [place] [phone] 13 Mar, 2016 [facility] [address] [id number] [address] [place] [phone] 12 Mar, 2016 [facility] [address] [id number] [address] [place] [phone] 09 Mar, 2016 [facility] [address] [id number] [address] [place] [id number] 06 Mar, 2016 [facility] [address] [id number] [address] [place] [id number] Feb, Other specified diseases of anus and rectum K62.89 [facility] [address] [id number] [address] [place] [id number] Feb, [facility] [address] [id number] [address] [place] [id number] Feb, Dizziness R42 [facility] [address] [id number] [address] [place] [id number] Feb, [facility] [address] [id number] [address] [place] [id number] Jan, Polyneuropathy G62.9 [facility] [address] [id number] [address] [place] [id number] Jan, Other specified diseases of anus and rectum K62.89 [facility] [address] [id number] [address] [place] [phone] Jan, [facility] [address] [id number] [address] [place] [id number] 16 Jan, 2016 [facility] [address] [id number] [address] [place] [id number] 15 Jan, 2016 [facility] [address] [id number] [address] [place] [id number] Jan, Dizziness R42 [facility] [address] [id number] [address] [place], [place] [address], [place] [address] Dec, [facility] [address] [id number] [address] [place] [address], [place] [address] Dec, [facility] [address] [id number] [address] [place] [address], [place] [address] Dec, [facility] [address] [id number] [address] [place] [address], [place] [address] Dec, Dizziness R42 [facility] [address] [id number] [address] [place] [address], [place] [address] November, [facility] [address] [id number] [address] [place] [address], [place] [address] Oct, [facility] [address] [id number] [address] [place] [address], [place] [address] Oct, [facility] [address] [id number] [address] [place] [address], [place] [address] Oct, [facility] [address] [id number] [address] [place] [address], [place] [address] Oct, [facility] [address] [id number] [address] [place] [address], [place] [address] Sep, [facility] [address] [id number] [address] [place] [address], [place] [address] Sep, Primary insomnia F51.01 [facility] [address] [id number] [address] [place] [address], [place] [address] Sep, Primary insomnia F51.01 [facility] [address] [id number] [address] [place] [address], [place] [address] Sep, [facility] [address] [id number] [address] [place] [address], [place] [address] Aug, [facility] [address] [id number] [place] [address] Aug, [facility] [address] [id number] [address] [place] [address] Aug, Primary insomnia F51.01 ; Mo od disorder F39 ; Nausea and vomiting, unspecified intactability, vomiting of unspecified type R11.2 and Diarrhea R19.7 [facility] [address] [id number] [address] [place] [address] Aug, [facility] [address] [id number] [address] [place] [address] Aug, Folliculitis L73.9 [facility] [address] [address] Aug, [facility] [id number] [place] [address] Aug, [facility] [id number] [place] [address] Jul, Folliculitis L73.9 [facility] [address] [id number] [address] [place] [address] Jul, [facility] [address] [address] Jun, Folliculitis L73.9 [facility] [address] [id number] [address] [place] [address] Jun, [facility] [address] [id number] [address] [place] [address] May, Polyneuropathy G62.9 [facility] [address] [id number] [address] [place] [address] May, Other specified diseases of anus and rectum K62.89 [facility] [address] [id number] [address] [place] [address] May, [facility] [id number] [place] [address] May, Primary insomnia F51.01 [facility] [address] [id number] [address] [place] [address] May, [facility] [address] [id number] [address] [place] [address] May, [facility] [address] [id number] [address] [place] [address] Apr, Other specified diseases of anus and rectum K62.89 ; Chronic fatigue R53.82 ; Urinary tract infection, site not specified N39.0 and Enterococcus as the cause of diseases classified elsewhere B95.2 [facility] [address] [id number] [address] [place] [address] 16 Apr, 2015 [facility] [address] [id number] [address] [place] [address] 15 Apr, 2015 [facility] [address] [id number] [address] [place] [address] Apr, 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 [facility] [address] [id number] [address] [place] [address] 05 Apr, 2015 [facility] [address] [id number] [address] [place] [address] 26 Mar, 2015 [facility] [address] [id number] [address] [place] [address] 23 Mar, 2015 [facility] [address] [id number] [address] [place] [address] 17 Mar, 2015 [facility] [address] [id number] [address] [place] [address] 14 Mar, 2015 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 [facility] [address] [id number] [address] [place] [address] 12 Mar, 2015 [facility] [address] [id number] [address] [place] [address] 11 Mar, 2015 [facility] [address] [id number] [address] [place] [address] Mar, [facility] [address] [id number] [address] [place] [address] Mar, [facility] [address] [id number] [address] [place] [address] Feb, [facility] [address] [id number] [address] [place] [address] Feb, [facility] [address] [id number] [address] [place] [address] Feb, [facility] [address] [id number] [address] [place] [address] Jan, [facility] [address] [id number] [address] [place] [address] Jan, Nausea 787.02 and Neuropathy 355.9 [facility] [address] [id number] [address] [place] [address] Jan, [facility] [address] [id number] [address] [place] [address] Jan, [facility] [address] [id number] [address] [place] [address] Jan, [facility] [address] [id number] [address] [place] [id number] Jan, Dental examination V72.2 [facility] [address] [id number] [address] [place] [address] Jan, [facility] [address] [id number] [address] [place] [address] Dec, [facility] [address] [id number] [address] [place] [address] Dec, [facility] [address] [id number] [address] [place] [address] Dec, Neuropathy 355.9 [facility] [address] [id number] [address] [place] [address], [place] [address] November, [facility] [address] [id number] [address] [place] [address], [place] [address] November, [facility] [address] [id number] [address] [place] [address], [place] [address] November, [facility] [address] [id number] [address] [place] [address], [place] [address] Oct, [facility] [address] [id number] [address] [place] [address], [place] [address] Oct, [facility] [address] [id number] [address] [place] [address], [place] [address] Sep, [facility] [address] [id number] [address] [place] [address], [place] [address] Sep, [facility] [address] [id number] [address] [place] [address], [place] [address] Sep, [facility] [address] [id number] [address] [place] [address], [place] [address] Sep, [facility] [address] [id number] [address] [place] [address], [place] [address] Sep, [facility] [address] [id number] [address] [place] [address], [place] [address] Sep, [facility] [address] [id number] [address] [place] [address], [place] [address] Sep, [facility] [address] [id number] [address] [place] [address], [place] [address] Sep, [facility] [address] [id number] [address] [place] [address], [place] [address] Aug, [facility] [address] [id number] [address] [place] [address], [place] [address] Aug, [facility] [address] [id number] [address] [place] [address], [place] [address] Aug, 2014 [facility] [address] [id number] [address] [place] [address], [place] [address] Aug, 2014 [facility] [address] [id number] [address] [place] [address], [place] [address] Aug, 2014 [facility] [address] [id number] [address] [place] [address], [place] [address] Aug, 2014 [facility] [address] [id number] [address] [place] [address], [place] [address] Aug, 2014 [facility] [address] [id number] [address] [place] [address], [place] [address] Aug, [facility] [address] [id number] [address] [place] [address], [place] [address] Jul, [facility] [address] [id number] [address] [place] [address], [place] [address] Jul, [facility] [address] [id number] [address] [place] [address], [place] [address] Jun, [facility] [address] [id number] [address] [place] [address], [place] [address] Jun, [facility] [address] [id number] [address] [place] [address], [place] [address] Jun, [facility] [address] [id number] [address] [place] [address], [place] [address] Jun, [facility] [address] [id number] [address] [place] [address], [place] [address] Jun, [facility] [address] [id number] [address] [place] [address], [place] [address] Jun, [facility] [address] [id number] [address] [place] [address], [place] [address] Jun, [facility] [address] [id number] [address] [place] [address], [place] [address] Jun, [facility] [address] [id number] [address] [place] [address], [place] [address] Jun, [facility] [address] [id number] [address] [place] [address], [place] [address] Jun, [facility] [address] [id number] [address] [place] [address], [place] [address] Jun, [facility] [address] [id number] [address] [place] [address], [place] [address] May, [facility] [address] [id number] [address] [place] [address], [place] [address] May, [facility] [address] [id number] [address] [place] [address], [place] [address] May, [facility] [address] [id number] [address] [place] [address], [place] [address] May, [facility] [address] [id number] [address] [place] [address], [place] [address] May, [facility] [address] [id number] [address] [place] [address], [place] [address] May, [facility] [address] [id number] [address] [place] [address], [place] [address] May, [facility] [address] [id number] [address] [place] [address], [place] [address] May, [facility] [address] [id number] [address] [place] [address], [place] [address] May, [facility] [address] [id number] [address] [place] [address], [place] [address] Apr, [facility] [address] [id number] [address] [place] [address], [place] [address] Apr, [facility] [address] [id number] [address] [place] [address], [place] [address] Apr, [facility] [address] [id number] [address] [place] [address], [place] [address] Apr, [facility] [address] [id number] [facility] [place] [address] Apr, [facility] [address] [id number] [address] [place] [address], [place] [address] Mar, [facility] [address] [id number] [address] [place] [address], [place] [address] Mar, [facility] [address] [id number] [address] [place] [address], [place] [address] Feb, [facility] [address] [id number] [address] [place] [address], [place] [address] Feb, [facility] [address] [id number] [address] [place] [address], [place] [address] Feb, [facility] [address] [id number] [address] [place] [address], [place] [address] Feb, [facility] [address] [id number] [address] [place] [address], [place] [address] Feb, [facility] [address] [id number] [address] [place] [address], [place] [address] Feb, [facility] [address] [id number] [address] [place] [address], [place] [address] Jan, [facility] [address] [id number] [address] [place] [address], [place] [address] Jan, [facility] [address] [id number] [address] [place] [address], [place] [address] Jan, [facility] [address] [id number] [address] [place] [address], [place] [address] Jan, [facility] [address] [id number] [address] [place] [address], [place] [address] Jan, [facility] [address] [id number] [address] [place] [address], [place] [address] Jan, [facility] [address] [id number] [address] [place] [address], [place] [address] Jan, [facility] [address] [id number] [facility] [place] [address] Jan, [facility] [address] [id number] [facility] [place] [address] Jan, [facility] [address] [id number] [facility] [place] [address] Jan, [facility] [address] [id number] [address] [place] [address], [place] [address] Jan, [facility] [address] [id number] [address] [place] [address], [place] [address] Dec, [facility] [address] [id number] [address] [place] [address], [place] [address] Dec, [facility] [address] [id number] [address] [place] [address], [place] [address] Dec, [facility] [address] [id number] [address] [place] [address], [place] [address] Dec, [facility] [address] [id number] [address] [place] [address], [place] [address] Dec, [facility] [address] [id number] [address] [place] [address], [place] [address] Dec, [facility] [address] [id number] [address] [place] [address], [place] [address] November, [facility] [address] [id number] [address] [place] [address], [place] [address] November, [facility] [address] [id number] [address] [place] [address], [place] [address] November, [facility] [address] [id number] [address] [place] [address], [place] [address] November, [facility] [address] [id number] [address] [place] [address], [place] [address] November, [facility] [address] [id number] [facility] [place] [address] November, [facility] [address] [id number] [facility] [place] [address] Oct, [facility] [address] [id number] [facility] [place] [address] Oct, [facility] [address] [id number] [address] [place] [address], [place] [address] Oct, [facility] [address] [id number] [address] [place] [address], [place] [address] Oct, [facility] [address] [id number] [address] [place] [address], [place] [address] Sep, [facility] [address] [id number] [address] [place] [address], [place] [address] Sep, [facility] [address] [id number] [address] [place] [address], [place] [address] Sep, [facility] [address] [id number] [address] [place] [address], [place] [address] Sep, [facility] [address] [id number] [address] [place] [address], [place] [address] Sep, [facility] [address] [id number] [address] [place] [address], [place] [address] Aug, [facility] [address] [id number] [address] [place] [address], [place] [address] Aug, [facility] [address] [id number] [address] [place] [address], [place] [address] Aug, [facility] [address] [id number] [address] [place] [address], [place] [address] 17 Aug, 2013 [facility] [address] [id number] [address] [place] [address], [place] [address] 14 Aug, 2013 [facility] [address] [place] [id number] May, [facility] [address] [id number] [address] [place] [address], [place] [address] May, [facility] [address] [id number] [address] [place] [address] May, [facility] [address] [id number] [address] [place] [address], [place] [address] May, [facility] [address] [id number] [address] [place] [address] May, [facility] [address] [id number] [address] [place] [address], [place] [address] Apr, [facility] [address] [id number] [address] [place] [address] Apr, [facility] [address] [id number] [address] [place] [address], [place] [address] Apr, [facility] [address] [id number] [address] [place] [address] Apr, [facility] [address] [id number] [address] [place] [address] Apr, [facility] [address] [id number] [address] [place] [address] Apr, [facility] [address] [id number] [address] [place] [id number] Apr, [facility] [address] [id number] [address] [place] [id number] 28 Mar, 2013 [facility] [address] [id number] [address] [place] [id number] 25 Mar, 2013 [facility] [address] [id number] [address] [place] [address] 24 Mar, 2013 [facility] [address] [id number] [address] [place] [id number] 16 Mar, 2013 [facility] [address] [id number] [address] [place] [address], [place] [address] Mar, [facility] [address] [id number] [address] [place] [address], [place] [address] Mar, [facility] [address] [id number] [address] [place] [address], [place] [address] Feb, [facility] [address] [id number] [address] [place] [address], [place] [address] Feb, [facility] [address] [id number] [address] [place] [address], [place] [address] Feb, [facility] [address] [id number] [address] [place] [address], [place] [address] Feb, [facility] [address] [id number] [address] [place] [address], [place] [address] Feb, [facility] [address] [id number] [address] [place] [address], [place] [address] Feb, [facility] [address] [id number] [address] [place] [address], [place] [address] Jan, [facility] [address] [id number] [address] [place] [address], [place] [address] Dec, [facility] [address] [id number] [address] [place] [address], [place] [address] Dec, [facility] [address] [id number] [address] [place] [address], [place] [address] Dec, [facility] [address] [id number] [address] [place] [address], [place] [address] Dec, [facility] [address] [id number] [address] [place] [address], [place] [address] Dec, [facility] [address] [id number] [address] [place] [address], [place] [address] 18 Dec, 2012 [facility] [address] [id number] [address] [place] [address], [place] [address] [address], [address] [facility] [address] [id number] [address] [place] [address], [place] [address] Dec, [facility] [address] [id number] [address] [place] [address], [place] [address] Dec, [facility] [address] [id number] [address] [place] [address], [place] [address] November, [facility] [address] [id number] [address] [place] [address], [place] [address] November, [facility] [address] [id number] [address] [place] [address], [place] [address] Oct, [facility] [address] [id number] [address] [place] [address], [place] [address] Sep, [facility] [address] [id number] [address] [place] [address], [place] [address] Sep, [facility] [address] [id number] [address] [place] [address], [place] [address] Sep, [facility] [address] [id number] [address] [place] [address], [place] [address] Sep, [facility] [address] [id number] [address] [place] [address], [place] [address] Aug, [facility] [address] [id number] [address] [place] [address], [place] [address] Aug, [facility] [address] [id number] [address] [place] [address], [place] [address] Jul, [facility] [address] [id number] [address] [place] [address], [place] [address] Jul, [facility] [address] [id number] [address] [place] [address], [place] [address] Jul, [facility] [address] [id number] [address] [place] [address], [place] [address] Sep, [facility] [address] [id number] [address] [place] [address] Sep, [facility] [address] [facility] [id number] [address] [place] [address] Sep, IMMUNIZATIONS No Known Immunizations SOCIAL HISTORY Never Assessed REASON FOR VISIT PLAN OF CARE VITAL SIGNS Height 67 in 2014-08-01 Weight 175.79 lbs 2014-08-01 Temperature 97.6 degrees Fahrenheit 2014-08-01 Heart Rate 80 bpm 2014-08-01 Respiratory Rate 18 2014-08-01 Blood pressure systolic 102 mmHg 2014-08-01 Blood pressure diastolic 82 mmHg 2014-08-01 MEDICATIONS No Known Medications RESULTS No Results PROCEDURES Procedure Date Ordered Result Body Site VISIT Aug 01, 2014 INSTRUCTIONS MEDICATIONS ADMINISTERED No Known Medications MEDICAL [...] bowel obstruction, Dehydration -[facility] 01/01/17 Hospitalization History [facility]- UTI/Sepsis 01/18/[address] [facility] - infection 4 days 05/2018
--- OUTSIDE RECORDS SUMMARY | 2020-01-14 23:02 | XMS REPORT ---
Author Author Melvin BENTLEY Organization [facility] Address [address] [place] [address] Care Team Providers Care Clinical Quality Rn Name Role Phone LINDA BENTLEY Unavailable PROBLEMS Type Condition ICD9-CM Code SAC87-GD Code Onset Dates Condition S tatus SNOMED Code Problem Hypertension, benign I10 Active 92099704 Problem Abdominal pain, left lower quadrant R10.32 Active 766431032 Problem Chronic fatigue, unspecified R53.82 A ctive 093674450 Problem Mood disorder F39 Active 076230 05 Problem Primary insomnia F51.01 Active 193 340689 Problem Incontinence of feces, unspecified fecal incontinence type R15.9 Active 15317248 Problem Anxiety F41.9 Active 87167376 Problem Chronic pain syndrome G89.4 Active 591981761 Problem 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 578005857 Problem 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 Active 664405185 Problem Hydronephrosis with ureteral stricture, not else where classified N13.1 Active 30909737 Problem Neuropathy G62.9 Active 342014792 Problem Polyneuropathy G62.9 Active 53946 000 Problem Malignant neoplasm of colon, unspecified part of colon C18.9 Active 958967361 Problem Attention to urostomy Z43.6 Active 704154601 ALLERGIES No Information ENCOUNTERS Encounter Location Date Diagnosis [place] [address] [id number] [place] [address] 12 Aug, [address] [address] Jul, Primary insomnia F51.01 ; Neuropathy G62 .9 and Encounter for Medicare annual wellness exam Z00.00 [place] [address] [id number] [place] [address] Jun, Neuropathy G62.9 and Encounter for Medic are annual wellness exam Z00.00 [facility] [address] [address] 18 Jun, [address] [facility] [address] [address] 17 Jun, 2019 Primary insomnia F51.01 ; Encounter for Medicare annual wellness exam Z00.00 and Neuropathy G62.9 [place] [address] [address] Jun, Malignant neoplasm of colon, unspecified part of colon C18.9 and Chronic fatigue, unspecified R53.82 [place] [address] [address] May, Neuropathy G62.9 and Encounter for Medic are annual wellness exam Z00.00 [place] [address] [address] 15 May, 2019 Primary insomnia F51.01 [place] [address] [address] May, Neuropathy G62.9 and Anxiety F41.9 [place] [address] [address] Apr, Encounter for Medicare annual wellness e xam Z00.00 [place] [address] [address] Apr, Neuropathy G62.9 and Encounter for Medic are annual wellness exam Z00.00 [place] [address] [address] Mar, Neuropathy G62.9 and Primary insomnia F5 1.01 [place] [address] [address] Mar, [place] [address] [address] Feb, Primary insomnia F51.01 ; Neuropathy G62 .9 and Encounter for Medicare annual wellness exam Z00.00 [place] [address] [address] Feb, Neuropathy G62.9 and Encounter for Medic are annual wellness exam Z00.00 [facility] [address] [address] Feb, Primary insomnia F51.01 and High risk me dication use Z79.899 [facility] [address] [place] [id number] [place] [address] Jan, [facility] [address] [address] Jan, Neuropathy G62.9 [place] [address] [address] Dec, [place] [address] [address] Dec, Encounter for Medicare annual wellness e xam Z00.00 and Neuropathy G62.9 [place] [address] [address] November, 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 [address] [address] Oct, Neuropathy G62.9 [facility] [address] [address] Oct, Hypertension, benign I10 and Anxiety F41 .9 [facility] [address] [place] [id number] [place] [address] Oct, [facility] [address] [address] Oct, [place] [address] [address] Oct, [facility] [address] [address] Oct, Neuropathy G62.9 [facility] [address] [place] [address] [id number] [place] [address] Sep, [facility] [address] [address] Sep, Neuropathy G62.9 [facility] [address] [address] Sep, [facility] [address] [address] Sep, 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 and Primary insomnia F51.01 [facility] [address] [address] Aug, [facility] [address] [address] Aug, Neuropathy G62.9 [facility] [address] [address] Aug, [facility] [address] [address] Jul, Non-recurrent acute suppurative otitis m edia of left ear without spontaneous rupture of tympanic membrane H66.002 [facility] [address] [place] [address] [place] [address] Jul, Neuropathy G62.9 [facility] [address] [address] Jun, [facility] [address] [address] Jun, [facility] [address] [address] Jun, Neuropathy G62.9 [facility] [address] [address] Jun, [facility] [address] [address] Jun, [facility] [address] [address] Jun, Lumbar neuritis M54.16 [place] [address] [address] May, Neuropathy G62.9 [place] [address] [address] May, [place] [address] [address] May, Neuropathy G62.9 and Hypertension, benig n I10 [place] [address] [address] Apr, Polyneuropathy G62.9 and Hypertension, b enign I10 [place] [address] [address] 17 Mar, 2018 Chronic pain syndrome G89.4 and Hyperten shalini, benign I10 [place] [address] [address] Mar, Polyneuropathy G62.9 and Hypertension, b enign I10 [place] [address] [address] Feb, [place] [address] [address] Feb, Hypertension, benign I10 [place] [address] [address] Feb, Hypertension, benign I10 ; Polyneuropath y G62.9 and Primary insomnia F51.01 [place] [address] [address] Jan, Hypertension, benign I10 and Polyneuropa thy G62.9 [place] [address] [place] [address] [place] [address] Jan, Hypertension, benign I10 and Ne[address]athy G62.9 [facility] [address] [place] [id number] [place] [address] Jan, [facility] [address] [place] [id number] [place] [address] Dec, Polyneuropathy G62.9 [facility] [address] [place] [address] [place] [address] Dec, Mood disorder F39 [facility] [address] [place] [id number] [place] [address] November, Polyneuropathy G62.9 [facility] [address] [place] [address] [place] [address] November, Medicare annual wellness visit, initial Z00.00 [place] [address] [place] [address] [place] [address] November, Mood disorder F39 [facility] [address] [place] [id number] [place] [address] Oct, Polyneuropathy G62.9 [facility] [address] [place] [address] [place] [address] Oct, [facility] [address] [place] [id number] [place] [address] Oct, [facility] [address] [place] [address] [place] [address] Oct, Mood disorder F39 ; Attention to urostom y Z43.6 ; Chronic pain syndrome G89.[address] [facility] [address] [place] [id number] [place] [address] Sep, Polyneuropathy G62.9 [facility] [address] [place] [id number] [place] [address] Sep, [facility] [address] [place] [id number] [place] [address] Sep, Polyneuropathy G62.9 [facility] [address] [place] [address] [place] [address] Aug, Polyneuropathy G62.9 [facility] [address] [place] [id number] [place] [address] Aug, Malignant neoplasm of colon, unspecified part of colon C18.[address] [facility] [address] [address] Aug, Neuropathy G62.[address] G[address]. [address] [facility] [address] [address] Jul, Encounter for drug screening Z02.83 [facility] [address] [address] Jul, Polyneuropathy G62.9 [facility] [address] [address] Jul, [facility] [address] [address] Jul, Neuropathy G62.[address] [facility] [address] [address] Jul, [facility] [address] [address] Jul, [facility] [address] [address] Jul, [facility] [address] [address] Jul, Polyneuropathy G62.9 [facility] [address] [address] Jul, [facility] [address] [address] Jun, [facility] [address] [address] Jun, [facility] [address] [address] Jun, [facility] [address] [facility] [address] Jun, Encounter for dental examina tion Z01.20 [facility] [address] [address] Jun, Polyneuropathy G62.[address] [facility] [address] [address] Jun, [facility] [address] [facility] [address] May, Dental examination Z01.20 [facility] [address] [address] May, Polyneuropathy G62.9 [place] [id number] [address] Apr, Polyneuropathy G62.9 [facility] [address] [address] Apr, Polyneuropathy G62.9 [facility] [address] [address] Apr, Hypertension, benign I10 ; Polyneuropath y G62.[address] [facility] [address] [address] Apr, Primary insomnia F51.01 and Polyneuropat hy G62.9 [facility] [address] [address] Apr, Primary insomnia F51.01 and Polyneuropat hy G62.9 [facility] [address] [address] Mar, Primary insomnia F51.01 [facility] [address] [address] Mar, [facility] [address] [id number] [place] [address] Mar, Polyneuropathy G62.9 [facility] [address] [id number] [place] [address] Feb, Primary insomnia F51.01 [facility] [address] [id number] [place] [address] Feb, [facility] [place] [address] [place] [id number] [place] [address] Feb, [facility] [address] [id number] [place] [address] Feb, Polyneuropathy G62.9 [facility] [address] [place] [id number] [place] [address] Feb, Primary insomnia F51.01 [facility] [address] [place] [id number] [place] [address] Jan, [facility] [place] [address] [id number] [place] [address] Jan, [facility] [address] [id number] [place] [address] Dec, [facility] [place] [address] [place] [id number] [place] [address] Dec, Primary insomnia F51.01 [facility] [address] [place] [id number] [place] [address] Dec, Primary insomnia F51.01 [facility] [place] [address] [id number] [place] [address] Dec, [facility] [place] [address] [place] [id number] [place] [address] Dec, [facility] [place] [address] [place] [id number] [place] [address] Dec, [facility] [address] [place] [id number] [place] [address] Dec, [facility] [address] [address] [address] [place] [address] November, Primary insomnia F51.01 and Polyneuropat hy G62.9 [facility] [address] [address] November, [facility] [address] [address] November, Abdominal pain, left lower quadrant R10. 32 [facility] [address] [address] November, [facility] [address] [address] Oct, [facility] [address] [address] Oct, Abdominal pain, left lower quadrant R10. 32 ; 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 [facility] [address] [place] [address] [place] [address] Oct, [facility] [address] [address] Sep, [facility] [place] [address] [id number] [address] Sep, [facility] [address] [place] [id number] [place] [address] Sep, [facility] [address] [address] Aug, [facility] [address] [place] [id number] [place] [address] Aug, [facility] [address] [address] Aug, Abdominal pain, left lower quadrant R10. 32 ; Neuropathy G62.9 and Anxiety F41.9 [facility] [address] [place] [address] Jul, [facility] [address] [place] [id number] [place] [address] Jul, [facility] [address] [facility] [id number] [address] [place] [address] Jul, [facility] [address] [id number] [place] [address] Jul, [facility] [address] [place] [id number] [place] [address] Jul, [facility] [address] [place] [id number] [place] [address] Jun, [facility] [address] [place] [id number] [place] [address] May, [facility] [address] [place] [id number] [place] [address] May, [facility] [address] [address] Apr, [facility] [address] [place] [id number] [place] [address] Apr, Muscle spasms of both lower extremities M62.838 and Cellulitis, unspecified cellulitis site L03.90 [facility] [address] [place] [id number] [place] [address] Apr, [facility] [address] [id number] [place] [address] 23 Mar, 2016 Generalized abdominal pain R10.84 [facility] [address] [id number] [place] [address] 20 Mar, 2015 [facility] [address] [id number] [place] [address] 14 Mar, 2016 [facility] [address] [place] [address] 14 Mar, 2016 [facility] [address] [id number] [place] [address] 13 Mar, 2016 [facility] [id number] [place] [address] 12 Mar, 2016 [facility] [address] [id number] [place] [address] Mar, [facility] [address] [id number] [place] [address] Mar, [facility] [address] [id number] [place] [address] Feb, Other specified diseases of anus and rec wilton K62.89 [facility] [address] [id number] [place] [address] Feb, [facility] [id number] [place] [address] Feb, Dizziness R42 [facility] [address] [id number] [place] [address] Feb, [facility] [id number] [place] [address] Jan, Polyneuropathy G62.9 [facility] [address] [id number] [place] [address] Jan, Other specified diseases of anus and rec wilton K62.89 [facility] [address] [id number] [place] [address] Jan, [facility] [address] [facility] [id number] [address] [place] [address] Jan, [facility] [address] [id number] [place] [address] Jan, [facility] [address] [id number] [place] [address] Jan, Dizziness R42 [facility] [id number] [place] [address] Dec, [facility] [id number] [place] [address] Dec, [facility] [id number] [place] [address] Dec, [facility] [id number] [place] [address] Dec, Dizziness R42 [facility] [id number] [place] [address] November, [facility] [id number] [place] [address] Oct, [facility] [id number] [place] [address] Oct, [facility] [id number] [place] [address] Oct, [facility] [id number] [place] [address] Oct, [facility] [id number] [place] [address] Sep, [facility] [id number] [place] [address] Sep, Primary insomnia F51.01 [facility] [id number] [place] [address] Sep, Primary insomnia F51.01 [facility] [id number] [place] [address] Sep, [facility] [id number] [place] [address] Aug, [facility] [id number] [place] [address] Aug, [facility] [id number] [place] [address] Aug, Primary insomnia F51.01 ; Mood disorder F39 ; Nausea and vomiting, unspecified intactability, vomiting of unspecified type R11.[address] [facility] [id number] [place] [address] Aug, [facility] [id number] [place] [address] Aug, Folliculitis L73.9 [facility] [address] [address] Aug, [facility] [address] [address] Aug, [facility] [address] [address] Jul, Folliculitis L73.9 [facility] [address] [address] Jul, [facility] [address] [address] Jun, Folliculitis L73.9 [facility] [address] [address] Jun, [facility] [address] [address] May, Polyneuropathy G62.9 [facility] [address] [address] May, Other specified diseases of anus and rec wilton K62.89 [address] [address] [address] May, [place] [address] [address] May, Primary insomnia F51.01 [facility] [address] [address] May, [facility] [address] [address] May, [facility] [address] [address] Apr, Other specified diseases of anus and rec wilton K62.89 ; Chronic fatigue R53.82 ; Urinary tract infection, site not specified N39.0 and Enterococcus as the cause of diseases classified elsewhere B95.2 [place] [address] [address] [place] [address] 16 Apr, 2015 [facility] [address] [id number] [place] [address] 15 Apr, 2015 [facility] [address] [id number] [place] [address] 14 Apr, 2015 Unspecified inflammatory and toxic neuro carol 357.9 [facility] [address] [id number] [place] [address] 05 Apr, 2015 [facility] [address] [id number] [place] [address] 26 Mar, 2014 [facility] [address] [id number] [place] [address] 23 Mar, 2015 [facility] [address] [id number] [place] [address] 17 Mar, 2014 [facility] [address] [id number] [place] [address] 14 Mar, 2015 Unspecified inflammatory and toxic neuro carol 357.9 [facility] [address] [id number] [place] [address] 12 Mar, 2015 [facility] [address] [id number] [place] [address] 11 Mar, 2015 [facility] [address] [id number] [place] [address] 11 Mar, 2015 [facility] [address] [id number] [place] [address] 10 Mar, 2015 [facility] [address] [id number] [place] [address] 28 Feb, 2015 [facility] [address] [id number] [place] [address] 14 Feb, 2015 [facility] [address] [id number] [place] [address] Feb, [facility] [address] [id number] [place] [address] 30 Jan, 2015 [facility] [address] [id number] [place] [address] Jan, Nausea 787.02 and Neuropathy 355.9 [facility] [address] [id number] [place] [address] Jan, [facility] [address] [id number] [place] [address] Jan, [facility] [address] [id number] [place] [address] Jan, [facility] [address] [id number] [place] [id number] Jan, Dental examination V72.2 [facility] [address] [id number] [place] [address] Jan, [facility] [address] [id number] [place] [address] Dec, [facility] [address] [id number] [place] [address] Dec, [facility] [address] [id number] [place] [address] Dec, Neuropathy [address] [facility] [address] [id number] [place] [address] November, [facility] [address] [id number] [place] [address] November, [facility] [address] [id number] [place] [address] November, [facility] [address] [id number] [place] [address] Oct, [facility] [address] [id number] [place] [address] Oct, [facility] [address] [id number] [place] [address] Sep, [facility] [address] [id number] [place] [address] Sep, [facility] [id number] [place] [address] Sep, [facility] [place] [facility] [address] [id number] [place] [address] Sep, [facility] [place] [facility] [address] [id number] [place] [address] Sep, [facility] [place] [facility] [address] [id number] [place] [address] Sep, [facility] [place] [facility] [address] [id number] [place] [address] Sep, [facility] [place] [facility] [address] [id number] [place] [address] Sep, [facility] [place] [facility] [address] [id number] [place] [address] Aug, 2014 [facility] [place] [facility] [address] [id number] [place] [address] Aug, [facility] [place] [facility] [address] [id number] [place] [address] Aug, 2014 [facility] [place] [facility] [address] [id number] [place] [address] Aug, 2014 [facility] [place] [facility] [address] [id number] [place] [address] Aug, 2014 [facility] [place] [facility] [address] [id number] [place] [address] Aug, [facility] [place] [facility] [address] [id number] [place] [address] Aug, 2014 [facility] [place] [facility] [address] [id number] [place] [address] Aug, [facility] [place] [facility] [address] [id number] [place] [address] Jul, [facility] [place] [facility] [address] [id number] [place] [address] Jul, [facility] [place] [facility] [address] [id number] [place] [address] Jun, [facility] [place] [facility] [address] [facility] [id number] [place] [address] Jun, [facility] [place] [facility] [address] [id number] [place] [address] Jun, [facility] [place] [facility] [address] [id number] [place] [address] Jun, [facility] [place] [facility] [address] [id number] [place] [address] Jun, [facility] [place] [facility] [address] [facility] [id number] [place] [address] Jun, [facility] [place] [facility] [address] [id number] [place] [address] Jun, [facility] [place] [facility] [address] [id number] [place] [address] Jun, [facility] [place] [facility] [address] [id number] [place] [address] Jun, [facility] [place] [facility] [address] [id number] [place] [address] Jun, [facility] [place] [facility] [address] [id number] [place] [address] Jun, [facility] [place] [facility] [address] [id number] [place] [address] May, [facility] [place] [facility] [address] [id number] [place] [address] May, [facility] [place] [facility] [address] [id number] [place] [address] May, [facility] [place] [facility] [address] [id number] [place] [address] May, [facility] [place] [facility] [address] [id number] [place] [address] May, [facility] [place] [facility] [address] [id number] [place] [address] May, [facility] [place] [facility] [address] [id number] [place] [address] May, [facility] [place] [facility] [address] [facility] [id number] [facility] [place] [address] May, [facility] [place] [facility] [address] [facility] [id number] [place] [address] May, [facility] [place] [facility] [address] [id number] [place] [address] Apr, [facility] [place] [facility] [address] [facility] [id number] [facility] [place] [address] Apr, [facility] [place] [facility] [address] [facility] [id number] [place] [address] Apr, [facility] [place] [facility] [address] [id number] [place] [address] Apr, [facility] [place] [facility] [address] [id number] [place] [address] Apr, [facility] [place] [facility] [address] [id number] [place] [address] Mar, [facility] [place] [facility] [address] [id number] [place] [address] Mar, [facility] [place] [facility] [address] [id number] [place] [address] Feb, [facility] [place] [facility] [address] [id number] [place] [address] Feb, [facility] [place] [facility] [address] [id number] [place] [address] Feb, [facility] [place] [facility] [address] [facility] [id number] [place] [address] Feb, [facility] [place] [facility] [address] [id number] [place] [address] Feb, [facility] [place] [facility] [address] [id number] [place] [address] Feb, [facility] [place] [facility] [address] [id number] [place] [address] Jan, [facility] [place] [facility] [address] [id number] [place] [address] Jan, [facility] [place] [facility] [address] [id number] [place] [address] Jan, [facility] [place] [facility] [address] [facility] [id number] [place] [address] Jan, [facility] [place] [facility] [address] [id number] [place] [address] Jan, [facility] [place] [facility] [address] [id number] [place] [address] Jan, [facility] [place] [facility] [address] [id number] [place] [address] Jan, [facility] [place] [facility] [address] [facility] [id number] [place] [address] Jan, [facility] [place] [facility] [address] [id number] [place] [address] Jan, [facility] [place] [facility] [address] [facility] [id number] [place] [address] Jan, [facility] [place] [facility] [address] [id number] [place] [address] Jan, [facility] [place] [facility] [address] [facility] [id number] [place] [address] Dec, [facility] [place] [facility] [address] [id number] [place] [address] Dec, [facility] [place] [facility] [address] [id number] [place] [address] Dec, [facility] [place] [facility] [address] [id number] [place] [address] Dec, [facility] [place] [facility] [address] [id number] [place] [address] Dec, [facility] [place] [facility] [address] [facility] [id number] [place] [address] Dec, [facility] [place] [facility] [address] [id number] [place] [address] November, [facility] [place] [facility] [address] [facility] [id number] [facility] [place] [address] November, [facility] [place] [facility] [address] [facility] [id number] [place] [address] November, [facility] [place] [facility] [address] [facility] [id number] [facility] [place] [address] November, [facility] [place] [facility] [address] [id number] [place] [address] November, [facility] [place] [facility] [address] [facility] [id number] [place] [address] November, [facility] [place] [facility] [address] [id number] [place] [address] Oct, [facility] [place] [facility] [address] [id number] [place] [address] Oct, [facility] [place] [facility] [address] [id number] [place] [address] Oct, [facility] [place] [facility] [address] [facility] [id number] [facility] [place] [address] Oct, [facility] [place] [facility] [address] [id number] [facility] [place] [address] Sep, [facility] [place] [facility] [address] [id number] [place] [address] Sep, [facility] [place] [facility] [address] [id number] [place] [address] Sep, [facility] [place] [facility] [address] [facility] [id number] [facility] [place] [address] Sep, [facility] [place] [facility] [address] [id number] [place] [address] Sep, [facility] [place] [facility] [address] [id number] [place] [address] Aug, [facility] [place] [facility] [address] [id number] [facility] [place] [address] Aug, [facility] [place] [facility] [address] [id number] [place] [address] Aug, [facility] [place] [facility] [address] [facility] [id number] [place] [address] Aug, [facility] [place] [facility] [address] [id number] [place] [address] Aug, [facility] [address] [place] [id number] May, [facility] [place] [facility] [address] [id number] [place] [address] May, [facility] [place] [facility] [address] [id number] [place] [address] May, [facility] [place] [facility] [address] [id number] [place] [address] May, [facility] [place] [facility] [address] [id number] [place] [address] May, [facility] [place] [facility] [address] [id number] [place] [address] Apr, [facility] [place] [facility] [address] [id number] [place] [address] Apr, [facility] [place] [facility] [address] [id number] [place] [address] Apr, [facility] [place] [facility] [address] [id number] [place] [address] Apr, [facility] [place] [facility] [address] [id number] [place] [address] Apr, [facility] [place] [facility] [address] [id number] [place] [address] Apr, [facility] [place] [facility] [address] [id number] [place] [address] Apr, [facility] [place] [facility] [address] [id number] [place] [address] Mar, [facility] [place] [facility] [address] [id number] [place] [address] Mar, [facility] [place] [facility] [address] [id number] [place] [address] 24 Mar, 2013 [facility] [place] [facility] [address] [id number] [place] [address] 16 Mar, 2013 [facility] [place] [facility] [address] [id number] [place] [address] 12 Mar, 2013 [facility] [place] [facility] [address] [id number] [place] [address] Mar, [facility] [place] [facility] [address] [id number] [place] [address] Feb, [facility] [place] [facility] [address] [id number] [place] [address] Feb, [facility] [place] [facility] [address] [id number] [place] [address] Feb, [facility] [place] [facility] [address] [id number] [place] [address] Feb, [facility] [place] [facility] [address] [id number] [place] [address] Feb, [facility] [place] [facility] [address] [id number] [place] [address] Feb, [facility] [place] [facility] [address] [id number] [place] [address] Jan, [facility] [place] [facility] [address] [id number] [place] [address] Dec, [facility] [place] [facility] [address] [id number] [place] [address] Dec, [facility] [place] [facility] [address] [id number] [place] [address] Dec, [facility] [place] [facility] [address] [id number] [place] [address] Dec, [facility] [place] [facility] [address] [id number] [place] [address] Dec, [facility] [place] [facility] [address] [id number] [place] [address] Dec, [facility] [address] [facility] [id number] [place] [address] Dec, [facility] [place] [facility] [address] [facility] [id number] [facility] [place] [address] Dec, [facility] [place] [facility] [address] [id number] [place] [address] Dec, [facility] [place] [facility] [address] [id number] [place] [address] November, [facility] [place] [facility] [address] [facility] [id number] [facility] [place] [address] November, [facility] [place] [facility] [address] [id number] [place] [address] Oct, [facility] [place] [facility] [address] [id number] [place] [address] Sep, [facility] [place] [facility] [address] [id number] [place] [address] Sep, [facility] [place] [facility] [address] [id number] [place] [address] Sep, [facility] [place] [facility] [address] [id number] [place] [address] Sep, [facility] [place] [facility] [address] [id number] [place] [address] Aug, [facility] [place] [facility] [address] [id number] [place] [address] Aug, [facility] [place] [facility] [address] [id number] [place] [address] Jul, [facility] [place] [facility] [address] [id number] [place] [address] Jul, [facility] [place] [facility] [address] [id number] [place] [address] Jul, [facility] [place] [facility] [address] [id number] [place] [address] Sep, [facility] [place] [facility] [address] [id number] [place] [address] Sep, [facility] [address] [facility] [id number] [place] [address] Sep, IMMUNIZATIONS No Known Immunizations SOCIAL HISTORY [...] bowel obstruction, Dehydration -[facility] 01/01/17 Hospitalization History [facility]- UTI/Sepsis 01/18/2018 Hospitalization History [facility] - infection 4 days 05/2018
--- OUTSIDE RECORDS SUMMARY | 2020-01-14 23:03 | XMS REPORT ---
Author Author Melvin BENTLEY Organization [facility] Address [address] [place] [address] Care Team Providers Care Secretary Administrative Assistant Name Role Phone LINDA BENTLEY Unavailable PROBLEMS Type Condition ICD9-CM Code [id number] Code Onset Dates Condition S tatus SNOMED Code Problem Incontinence of feces, unspecified fecal incontinence type R15.9 Active 42712386 Problem Primary insomnia F51.01 Active 193 616197 Problem Hydronephrosis with ureteral stricture, not else where classified N13.1 Active 47449640 Problem Chronic fatigue, unspecified R53.82 A ctive 134378153 Problem Hypertension, benign I10 Active 70571911 Problem Mood disorder F39 Active 793508 05 Problem Neuropathy G62.9 Active 370670860 Problem Chronic pain syndrome G89.4 Active 587466477 Problem Abdominal pain, left lower quadrant R10.32 Active 717797613 Problem 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 Active 427897193 Problem 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 460662438 Problem Anxiety F41.9 Active 56047587 Problem Polyneuropathy G62.9 Active 62216 000 Problem Malignant neoplasm of colon, unspecified part of colon C18.9 Active 617717472 Problem Attention to urostomy Z43.6 Active 207657978 ALLERGIES No Information ENCOUNTERS Encounter Location Date Diagnosis [facility] [address] [facility] [id number] [address] [place] [phone] Apr, [facility] [address] [facility] [id number] [address] [place] [address] Mar, [facility] [address] [facility] [id number] [address] [place] [address] Feb, Primary insomnia F51.01 ; Ne uropathy G62.9 and Encounter for Medicare annual wellness exam Z00.00 [facility] [address] [id number] [address] [place] [address] Feb, Neuropathy G62.9 and Encount er for Medicare annual wellness exam Z00.00 [facility] [address] [id number] [address] [place] [address] Feb, Primary insomnia F51.01 and High risk medication use Z79.899 [facility] [address] [id number] [address] [place] [address] Jan, [facility] [address] [id number] [address] [place] [address] Jan, Neuropathy G62.9 [facility] [address] [facility] [id number] [address] [place] [address] Dec, [facility] [address] [facility] [id number] [address] [place] [address] Dec, Encounter for Medicare annua l wellness exam Z00.00 and Neuropathy G62.9 [facility] [address] [id number] [address] [place] [address] November, [facility] [address] [id number] [address] [place] [address] November, Encounter for Medicare annua l wellness exam Z00.00 ; 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 ; Mood disorder F39 ; Chronic fatigue, unspecified R53.82 and Neuropathy G62.9 [facility] [address] [id number] [address] [place] [address] November, Neuropathy G62.9 [facility] [address] [id number] [address] [place] [address] Oct, Neuropathy G62.9 [facility] [address] [facility] [id number] [address] [place] [phone] Oct, Hypertension, benign I10 and Anxiety F41.9 [facility] [address] [id number] [address] [place] [address] Oct, [facility] [address] [id number] [address] [place] [address] Oct, [facility] [address] [id number] [address] [place] [address] Oct, [facility] [address] [id number] [address] [place] [address] Oct, Neuropathy G62.9 [facility] [address] [id number] [address] [place] [address] Sep, [facility] [address] [id number] [address] [place] [address] Sep, Neuropathy G62.9 [facility] [address] [id number] [address] [place] [address] Sep, [facility] [address] [id number] [address] [place] [address] Sep, H/O malignant carcinoid tumo r of 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 and Primary insomnia F51.01 [facility] [address] [id number] [address] [place] [address] Aug, [facility] [address] [id number] [address] [place] [address] Aug, Neuropathy G62.9 [facility] [address] [id number] [address] [place] [address] Aug, [facility] [address] [id number] [address] [place] [address] Jul, Non-recurrent acute suppurat francine otitis media of left ear without spontaneous rupture of tympanic membrane H66.002 [facility] [address] [id number] [address] [place] [address] Jul, Neuropathy G62.9 [facility] [address] [id number] [address] [place] [address] Jun, [facility] [address] [id number] [address] [place] [address] Jun, [facility] [address] [facility] [id number] [address] [place] [address] Jun, Neuropathy G62.9 [facility] [address] [facility] [id number] [address] [place] [address] Jun, [facility] [address] [place] [id number] [address] [place] [address] Jun, [facility] [address] [facility] [id number] [address] [place] [address] Jun, Lumbar neuritis M54.16 [facility] [address] [place] [id number] [place] [address] May, Neuropathy G62.9 [facility] [address] [place] [id number] [place] [address] May, [facility] [address] [place] [id number] [address] [place] [address] May, Neuropathy G62.9 and Hyperte nsion, benign I10 [facility] [address] [place] [id number] [place] [address] Apr, Polyneuropathy G62.9 and Hyp ertension, benign I10 [facility] [address] [place] [id number] [place] [address] 17 Mar, 2018 Chronic pain syndrome G89.4 and Hypertension, benign I10 [facility] [address] [facility] [id number] [address] [place] [address] Mar, Polyneuropathy G62.9 and Hyp ertension, benign I10 [facility] [address] [facility] [id number] [address] [place] [address] Feb, [facility] [address] [facility] [id number] [address] [place] [address] Feb, Hypertension, benign I10 [facility] [address] [place] [id number] [address] [place] [id number] Feb, Hypertension, benign I10 ; P olyneuropathy G62.9 and Primary insomnia F51.01 [facility] [address] [id number] [address] [place] [address] Jan, Hypertension, benign I10 and Polyneuropathy G62.9 [facility] [address] [id number] [address] [place] [phone] Jan, Hypertension, benign I10 and Neuropathy G62.9 [facility] [address] [id number] [address] [place] [address] Jan, [facility] [address] [facility] [id number] [address] [place] [address] Dec, Polyneuropathy G62.9 [facility] [address] [facility] [id number] [address] [place] [address] Dec, Mood disorder F39 [facility] [address] [id number] [address] [place] [address] November, Polyneuropathy G62.9 [facility] [address] [facility] [id number] [address] [place] [address] November, Medicare annual wellness vis it, initial Z00.00 [facility] [address] [facility] [id number] [address] [place] [address] November, Mood disorder F39 [facility] [address] [facility] [id number] [address] [place] [address] Oct, Polyneuropathy G62.9 [facility] [address] [id number] [address] [place] [address] Oct, [facility] [address] [facility] [id number] [address] [place] [address] Oct, [facility] [address] [facility] [id number] [address] [place] [address] Oct, Mood disorder F39 ; Attentio n to urostomy Z43.6 ; Chronic pain syndrome G89.4 and Polyneuropathy G62.9 [facility] [address] [facility] [id number] [address] [place] [address] Sep, Polyneuropathy G62.9 [facility] [address] [facility] [id number] [address] [place] [phone] Sep, [facility] [address] [place] [id number] [address] [place] [address] Sep, Polyneuropathy G62.9 [facility] [address] [facility] [id number] [address] [place] [address] Aug, Polyneuropathy G62.9 [facility] [address] [place] [id number] [address] [place] [address] Aug, Malignant neoplasm of colon, unspecified part of colon C18.9 and Polyneuropathy G62.9 [facility] [address] [place] [id number] [address] [place] [address] Aug, Neuropathy G62.9 and Polyneu ropathy G62.9 [facility] [address] [place] [id number] [address] [place] [address] Jul, Encounter for drug screening Z02.83 [facility] [address] [place] [id number] [address] [place] [address] Jul, Polyneuropathy G62.9 [facility] [address] [place] [id number] [address] [place] [address] Jul, [facility] [address] [place] [id number] [address] [place] [address] Jul, Neuropathy G62.9 and Anxiety F41.9 [facility] [address] [facility] [id number] [address] [place] [phone] Jul, [facility] [address] [place] [id number] [address] [place] [phone] Jul, [facility] [address] [place] [id number] [address] [place] [address] Jul, [facility] [address] [facility] [id number] [address] [place] [address] Jul, Polyneuropathy G62.9 [facility] [address] [facility] [id number] [address] [place] [id number] Jul, [facility] [address] [place] [id number] [place] [address] Jun, [facility] [address] [place] [id number] [place] [address] Jun, [facility] [address] [place] [id number] [place] [address] Jun, [facility] [address] [id number] [address] [address] 07 Jun, 2017 Encounter for dental examina tion Z01.20 [facility] [address] [place] [id number] [address] [place] [address] Jun, Polyneuropathy G62.9 and Anx iety F41.9 [facility] [address] [place] [id number] [place] [address] Jun, [facility] [address] [id number] [address] [address] May, Dental examination Z01.20 [facility] [address] [facility] [id number] [address] [place] [address] May, Polyneuropathy G62.9 [facility] [address] [facility] [id number] [address] [place] [address] Apr, Polyneuropathy G62.9 [facility] [address] [facility] [id number] [address] [place] [address] Apr, Polyneuropathy G62.9 [facility] [address] [facility] [id number] [address] [place] [address] Apr, Hypertension, benign I10 ; P olyneuropathy G62.9 and Anxiety F41.9 [facility] [address] [id number] [address] [place] [address] Apr, Primary insomnia F51.01 and Polyneuropathy G62.9 [facility] [address] [facility] [id number] [address] [place] [address], [place] [address] Apr, Primary insomnia F51.01 and Polyneuropathy G62.9 [facility] [address] [id number] [address] [place] [address] Mar, Primary insomnia F51.01 [facility] [address] [facility] [id number] [address] [place] [address], [place] [address] Mar, [facility] [address] [facility] [id number] [address] [place] [address] Mar, Polyneuropathy G62.9 [facility] [address] [id number] [address] [place] [address] Feb, Primary insomnia F51.01 [facility] [address] [id number] [address] [place] [address], [place] [address] Feb, [facility] [address] [facility] [id number] [address] [place] [address] Feb, [facility] [address] [facility] [id number] [address] [place] [address] Feb, Polyneuropathy G62.9 [facility] [address] [facility] [id number] [address] [place] [address] Feb, Primary insomnia F51.01 [facility] [address] [id number] [address] [place] [address], [place] [address] Jan, [facility] [address] [facility] [id number] [address] [place] [address] Jan, [facility] [address] [facility] [id number] [address] [place] [address] Dec, [facility] [address] [id number] [address] [place] [address] Dec, Primary insomnia F51.01 [facility] [address] [id number] [address] [place] [address] Dec, Primary insomnia F51.01 [facility] [address] [id number] [address] [place] [address] Dec, [facility] [address] [id number] [address] [place] [address] Dec, [facility] [address] [id number] [address] [place] [address] Dec, [facility] [address] [id number] [address] [place] [address] Dec, [facility] [address] [id number] [address] [place] [address] November, Primary insomnia F51.01 and Polyneuropathy G62.9 [facility] [address] [id number] [address] [place] [address] November, [facility] [address] [id number] [address] [place] [address] November, Abdominal pain, left lower q uadrant R10.32 [facility] [address] [id number] [address] [place] [address] November, [facility] [address] [id number] [address] [place] [address] Oct, [facility] [address] [id number] [address] [place] [address] Oct, Abdominal pain, left lower q uadrant R10.32 ; 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 and Neuropathy G62.9 [facility] [address] [id number] [address] [place] [address] Oct, [facility] [address] [id number] [address] [place] [address] Sep, [facility] [id number] [place] [id number] Sep, [facility] [address] [id number] [address] [place] [address] Sep, [facility] [address] [id number] [address] [place] [address] Aug, [facility] [address] [id number] [address] [place] [address] Aug, [facility] [address] [id number] [address] [place] [address] Aug, Abdominal pain, left lower q uadrant R10.32 ; Neuropathy G62.9 and Anxiety F41.9 [facility] [address] [place] [address] Jul, [facility] [address] [id number] [address] [place] [id number] Jul, [facility] [address] [id number] [address] [place] [address] Jul, [facility] [address] [id number] [address] [place] [address] Jul, [facility] [address] [id number] [address] [place] [address] Jul, [facility] [address] [id number] [address] [place] [address] Jun, [facility] [address] [id number] [address] [place] [id number] May, [facility] [address] [id number] [address] [place] [address] May, [facility] [address] [id number] [address] [place] [address] Apr, [facility] [address] [id number] [address] [place] [address] Apr, Muscle spasms of both lower extremities M62.838 and Cellulitis, unspecified cellulitis site L03.90 [facility] [address] [id number] [address] [place] [address] 07 Apr, 2016 [facility] [address] [id number] [address] [place] [address] 23 Mar, 2016 Generalized abdominal pain R 10.84 [facility] [address] [id number] [address] [place] [address] 20 Mar, 2016 [facility] [address] [id number] [address] [place] [id number] 14 Mar, 2016 [facility] [address] [id number] [address] [place] [id number] 14 Mar, 2016 [facility] [address] [id number] [address] [place] [id number] 13 Mar, 2016 [facility] [address] [id number] [address] [place] [id number] 12 Mar, 2016 [facility] [address] [id number] [address] [place] [id number] 09 Mar, 2016 [facility] [address] [id number] [address] [place] [id number] 06 Mar, 2016 [facility] [address] [id number] [address] [place] [id number] 17 Feb, 2016 Other specified diseases of anus and rectum K62.89 [facility] [address] [id number] [address] [place] [id number] 15 Feb, 2016 [facility] [address] [id number] [address] [place] [address] 09 Feb, 2016 Dizziness R42 [facility] [address] [id number] [address] [place] [id number] 08 Feb, 2016 [facility] [address] [id number] [address] [place] [address] Jan, Polyneuropathy G62.9 [facility] [address] [id number] [address] [place] [address] Jan, Other specified diseases of anus and rectum K62.89 [facility] [address] [id number] [address] [place] [address], [place] [address] Jan, [facility] [address] [id number] [address] [place] [address], [place] [address] Jan, [facility] [address] [id number] [address] [place] [address], [place] [address] Jan, [facility] [address] [id number] [address] [place] [address], [place] [address] Jan, Dizziness R42 [facility] [address] [id number] [address] [place] [address], [place] [address] Dec, [facility] [address] [id number] [address] [place] [phone] Dec, [facility] [address] [id number] [address] [place] [address], [place] [address] Dec, [facility] [address] [id number] [address] [place] [id number] Dec, Dizziness R42 [facility] [address] [id number] [address] [place] [id number] November, [facility] [address] [id number] [address] [place] [id number] Oct, [facility] [address] [id number] [address] [place] [address], [place] [address] Oct, [facility] [address] [id number] [address] [place] [id number] Oct, [facility] [address] [id number] [address] [place] [id number] Oct, [facility] [address] [id number] [address] [place] [id number] 30 Sep, 2015 [facility] [id number] [place] [address] Sep, Primary insomnia F51.01 [facility] [address] [id number] [address] [place] [id number] Sep, Primary insomnia F51.01 [facility] [id number] [place] [id number] Sep, [facility] [id number] [place] [id number] Aug, [facility] [address] [id number] Aug, [facility] [address] [id number] Aug, Primary insomnia F51.01 ; Mo od disorder F39 ; Nausea and vomiting, unspecified intactability, vomiting of unspecified type R11.2 and Diarrhea R19.7 [facility] [address] [id number] Aug, [facility] [address] [id number] Aug, Folliculitis L73.9 [facility] [address] [id number] [address] [place] [id number] Aug, [facility] [id number] [place] [id number] Aug, [facility] [address] [id number] Jul, Folliculitis L73.9 [facility] [address] [id number] [address] [place] [id number] Jul, [facility] [address] [id number] Jun, Folliculitis L73.9 [facility] [address] [facility] [id number] [address] [place] [id number] Jun, [facility] [address] [facility] [id number] [address] [place] [id number] May, Polyneuropathy G62.9 [facility] [address] [facility] [id number] [address] [place] [id number] May, Other specified diseases of anus and rectum K62.89 [facility] [address] [id number] [address] [place] [phone] May, [facility] [address] [facility] [id number] [address] [place] [id number] May, Primary insomnia F51.01 [facility] [address] [facility] [id number] [address] [place] [id number] May, [facility] [address] [facility] [id number] [address] [place] [id number] May, [facility] [address] [facility] [id number] [address] [place] [id number] Apr, Other specified diseases of anus and rectum K62.89 ; Chronic fatigue R53.82 ; Urinary tract infection, site not specified N39.0 and Enterococcus as the cause of diseases classified elsewhere B95.2 [facility] [address] [facility] [id number] [address] [place] [address] Apr, [facility] [address] [facility] [id number] [address] [place] [address] Apr, [facility] [address] [facility] [id number] [address] [place] [address] Apr, 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 [facility] [address] [facility] [id number] [address] [place] [address] Apr, [facility] [address] [facility] [id number] [address] [place] [address] Mar, [facility] [address] [id number] [address] [place] [address] 23 Mar, 2014 [facility] [address] [id number] [address] [place] [id number] 17 Mar, 2015 [facility] [address] [id number] [address] [place] [address] 14 Mar, 2015 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 [facility] [address] [id number] [address] [place] [id number] 12 Mar, 2014 [facility] [address] [id number] [address] [place] [id number] 11 Mar, 2015 [facility] [address] [id number] [address] [place] [id number] 11 Mar, 2015 [facility] [address] [id number] [address] [place] [id number] 10 Mar, 2015 [facility] [address] [id number] [address] [place] [id number] 28 Feb, 2015 [facility] [address] [id number] [address] [place] [address] Feb, [facility] [address] [id number] [address] [place] [id number] Feb, [facility] [address] [id number] [address] [place] [address] 30 Jan, 2015 [facility] [address] [id number] [address] [place] [id number] 27 Jan, 2015 Nausea 787.02 and Neuropathy 355.9 [facility] [address] [id number] [address] [place] [address] Jan, [facility] [address] [id number] [address] [place] [address] Jan, [facility] [address] [id number] [address] [place] [address] Jan, [facility] [address] [id number] [address] [place] [id number] 10 Jan, 2015 Dental examination V72.2 [facility] [address] [id number] [address] [place] [id number] Jan, [facility] [address] [id number] [address] [place] [address] Dec, [facility] [address] [id number] [address] [place] [address] Dec, [facility] [address] [id number] [address] [place] [address] Dec, Neuropathy 355.9 [facility] [address] [id number] [address] [place] [address] November, [facility] [address] [id number] [address] [place] [address] November, [facility] [address] [id number] [address] [place] [id number] November, [facility] [address] [id number] [address] [place] [id number] Oct, [facility] [address] [id number] [address] [place] [address] Oct, [facility] [address] [id number] [address] [place] [id number] Sep, [facility] [address] [id number] [address] [place] [address] Sep, [facility] [address] [id number] [address] [place] [id number] Sep, [facility] [address] [id number] [address] [place] [address] Sep, [facility] [address] [id number] [address] [place] [id number] Sep, [facility] [address] [id number] [address] [place] [address], [place] [address] Sep, [facility] [address] [id number] [address] [place] [address], [place] [address] Sep, [facility] [address] [id number] [address] [place] [address], [place] [address] Sep, [facility] [address] [id number] [address] [place] [address], [place] [address] Aug, 2014 [facility] [address] [id number] [address] [place] [address], [place] [address] Aug, 2014 [facility] [address] [id number] [address] [place] [address], [place] [address] Aug, [facility] [address] [id number] [address] [place] [address], [place] [address] Aug, 2014 [facility] [address] [id number] [address] [place] [address], [place] [address] Aug, [facility] [address] [id number] [address] [place] [address], [place] [address] Aug, [facility] [address] [id number] [address] [place] [address], [place] [address] Aug, [facility] [address] [id number] [address] [place] [address], [place] [address] Aug, [facility] [address] [id number] [address] [place] [address] Jul, [facility] [address] [id number] [address] [place] [address], [place] [address] Jul, [facility] [address] [id number] [address] [place] [address], [place] [address] Jun, [facility] [address] [id number] [address] [place] [address] Jun, [facility] [address] [id number] [address] [place] [address] Jun, [facility] [address] [id number] [address] [place] [address], [place] [address] Jun, [facility] [address] [id number] [address] [place] [address], [place] [address] Jun, [facility] [address] [id number] [address] [place] [address], [place] [address] Jun, [facility] [address] [id number] [address] [place] [address], [place] [address] Jun, [facility] [address] [id number] [address] [place] [address], [place] [address] Jun, [facility] [address] [id number] [address] [place] [address], [place] [address] Jun, [facility] [address] [id number] [address] [place] [address], [place] [address] Jun, [facility] [address] [id number] [address] [place] [address], [place] [address] Jun, [facility] [address] [id number] [address] [place] [address], [place] [address] May, [facility] [address] [id number] [address] [place] [address], [place] [address] May, [facility] [address] [id number] [address] [place] [address], [place] [address] May, [facility] [address] [id number] [address] [place] [address], [place] [address] May, [facility] [address] [id number] [address] [place] [address], [place] [address] May, [facility] [address] [id number] [address] [place] [address], [place] [address] May, [facility] [address] [id number] [address] [place] [address], [place] [address] May, [facility] [address] [id number] [address] [place] [address], [place] [address] May, [facility] [address] [id number] [address] [place] [address], [place] [address] May, [facility] [address] [id number] [address] [place] [address], [place] [address] Apr, [facility] [address] [id number] [address] [place] [address], [place] [address] Apr, [facility] [address] [id number] [address] [place] [address], [place] [address] Apr, [facility] [address] [id number] [address] [place] [address], [place] [address] Apr, [facility] [address] [id number] [address] [place] [address], [place] [address] Apr, [facility] [address] [id number] [address] [place] [address], [place] [address] Mar, [facility] [address] [id number] [address] [place] [address], [place] [address] Mar, [facility] [address] [id number] [address] [place] [address], [place] [address] Feb, [facility] [address] [id number] [address] [place] [address], [place] [address] Feb, [facility] [address] [id number] [address] [place] [address], [place] [address] Feb, [facility] [address] [id number] [address] [place] [address], [place] [address] Feb, [facility] [address] [id number] [address] [place] [address], [place] [address] Feb, [facility] [address] [id number] [address] [place] [address], [place] [address] Feb, [facility] [address] [id number] [address] [place] [address], [place] [address] Jan, [facility] [address] [id number] [facility] [place] [address] Jan, [facility] [address] [id number] [facility] [place] [address] Jan, [facility] [address] [id number] [facility] [place] [address] Jan, [facility] [address] [id number] [facility] [place] [address] Jan, [facility] [address] [id number] [facility] [place] [address] Jan, [facility] [address] [id number] [address] [place] [address], [place] [address] Jan, [facility] [address] [id number] [address] [place] [address], [place] [address] Jan, [facility] [address] [id number] [address] [place] [address], [place] [address] Jan, [facility] [address] [id number] [address] [place] [address], [place] [address] Jan, [facility] [address] [id number] [address] [place] [address], [place] [address] Jan, [facility] [address] [id number] [address] [place] [address], [place] [address] Dec, [facility] [address] [id number] [address] [place] [address], [place] [address] Dec, [facility] [address] [id number] [address] [place] [address], [place] [address] Dec, [facility] [address] [id number] [address] [place] [address], [place] [address] Dec, [facility] [address] [id number] [address] [place] [address], [place] [address] Dec, [facility] [address] [id number] [address] [place] [address], [place] [address] Dec, [facility] [address] [id number] [address] [place] [address], [place] [address] November, [facility] [address] [id number] [address] [place] [address], [place] [address] November, [facility] [address] [id number] [address] [place] [address], [place] [address] November, [facility] [address] [id number] [address] [place] [address], [place] [address] November, [facility] [address] [id number] [address] [place] [address], [place] [address] November, [facility] [address] [id number] [address] [place] [address], [place] [address] November, [facility] [address] [id number] [address] [place] [address], [place] [address] Oct, [facility] [address] [id number] [address] [place] [address], [place] [address] Oct, [facility] [address] [id number] [address] [place] [address], [place] [address] Oct, [facility] [address] [id number] [address] [place] [address], [place] [address] Oct, [facility] [address] [id number] [address] [place] [address], [place] [address] 17 Sep, 2013 [facility] [address] [id number] [address] [place] [address], [place] [address] 17 Sep, 2013 [facility] [address] [id number] [address] [place] [address], [place] [address] 13 Sep, 2013 [facility] [address] [id number] [address] [place] [address], [place] [address] Sep, [facility] [address] [id number] [address] [place] [address], [place] [address] Sep, [facility] [address] [id number] [address] [place] [address], [place] [address] Aug, [facility] [address] [id number] [address] [place] [address], [place] [address] Aug, [facility] [address] [id number] [address] [place] [address], [place] [address] Aug, [facility] [address] [id number] [address] [place] [address], [place] [address] Aug, [facility] [address] [id number] [address] [place] [address], [place] [address] Aug, [facility] [address] [place] [id number] May, [facility] [address] [id number] [address] [place] [address], [place] [address] May, [facility] [address] [id number] [address] [place] [address], [place] [address] May, [facility] [address] [id number] [address] [place] [address], [place] [address] May, [facility] [address] [id number] [address] [place] [address], [place] [address] May, [facility] [address] [id number] [address] [place] [address], [place] [address] Apr, [facility] [address] [id number] [address] [place] [address], [place] [address] Apr, [facility] [address] [id number] [address] [place] [address], [place] [address] Apr, [facility] [address] [id number] [address] [place] [address], [place] [address] Apr, [facility] [address] [id number] [address] [place] [address], [place] [address] Apr, [facility] [address] [id number] [address] [place] [address], [place] [address] Apr, [facility] [address] [id number] [address] [place] [address], [place] [address] Apr, [facility] [address] [id number] [address] [place] [address], [place] [address] Mar, [facility] [address] [id number] [address] [place] [address], [place] [address] Mar, [facility] [address] [id number] [address] [place] [address], [place] [address] 24 Mar, 2013 [facility] [address] [id number] [address] [place] [address], [place] [address] 16 Mar, 2013 [facility] [address] [id number] [address] [place] [address], [place] [address] Mar, [facility] [address] [id number] [address] [place] [address], [place] [address] Mar, [facility] [address] [id number] [address] [place] [address], [place] [address] Feb, [facility] [address] [id number] [address] [place] [address], [place] [address] Feb, [facility] [address] [id number] [address] [place] [address], [place] [address] Feb, [facility] [address] [id number] [address] [place] [address], [place] [address] Feb, [facility] [address] [id number] [address] [place] [address], [place] [address] Feb, [facility] [address] [id number] [address] [place] [address], [place] [address] Feb, [facility] [address] [id number] [address] [place] [address], [place] [address] Jan, [facility] [address] [id number] [address] [place] [address], [place] [address] Dec, [facility] [address] [id number] [address] [place] [address], [place] [address] Dec, [facility] [address] [id number] [address] [place] [address], [place] [address] Dec, [facility] [address] [id number] [address] [place] [address], [place] [address] Dec, [facility] [address] [id number] [address] [place] [address], [place] [address] Dec, [facility] [address] [id number] [address] [place] [address], [place] [address] 18 Dec, 2012 [facility] [address] [id number] [address] [place] [address], [place] [address] 17 Dec, 2012 [facility] [address] [id number] [address] [place] [address], [place] [address] Dec, [facility] [address] [id number] [address] [place] [address], [place] [address] Dec, [facility] [address] [id number] [address] [place] [address], [place] [address] November, [facility] [address] [id number] [address] [place] [address], [place] [address] November, [facility] [address] [id number] [address] [place] [address], [place] [address] Oct, [facility] [address] [id number] [address] [place] [address], [place] [address] Sep, [facility] [address] [id number] [address] [place] [address], [place] [address] Sep, [facility] [address] [id number] [address] [place] [address], [place] [address] 15 Sep, 2012 [facility] [address] [id number] [address] [place] [address], [place] [address] Sep, [facility] [address] [id number] [address] [place] [address], [place] [address] Aug, [facility] [address] [facility] [id number] [address] [place] [address] Aug, [facility] [address] [facility] [id number] [address] [place] [address] Jul, [facility] [address] [facility] [id number] [address] [place] [id number] Jul, [facility] [address] [facility] [id number] [address] [place] [id number] Jul, [facility] [address] [facility] [id number] [address] [place] [id number] Sep, [facility] [address] [facility] [id number] [address] [place] [id number] Sep, [facility] [address] [facility] [id number] [address] [place] [id number] Sep, IMMUNIZATIONS No Known Immunizations SOCIAL HISTORY [...] bowel obstruction, Dehydration -[facility] 01/01/17 Hospitalization History [facility]- UTI/Sepsis 01/18/2018 Hospitalization History [facility] - infection 4 days 05/2018
--- OUTSIDE RECORDS SUMMARY | 2020-01-14 23:03 | XMS REPORT ---
Author Author Melvin BENTLEY Organization [facility] Address [address] [place] [address] Care Team Providers Care Set Up / Operator Name Role Phone LINDA BENTLEY Unavailable PROBLEMS Type Condition ICD9-CM Code ARZ51-YZ Code Onset Dates Condition S tatus SNOMED Code Problem Incontinence of feces, unspecified fecal incontinence type R15.9 Active 81446093 Problem Primary insomnia F51.01 Active 193 202908 Problem Hydronephrosis with ureteral stricture, not else where classified N13.1 Active 64714700 Problem Chronic fatigue, unspecified R53.82 A ctive 150442859 Problem Hypertension, benign I10 Active 67055826 Problem Mood disorder F39 Active 690043 05 Problem Neuropathy G62.9 Active 646933966 Problem Chronic pain syndrome G89.4 Active 664446888 Problem Abdominal pain, left lower quadrant R10.32 Active 707938612 Problem 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 Active 704660546 Problem 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 433135627 Problem Anxiety F41.9 Active 37358762 Problem Polyneuropathy G62.9 Active 31899 000 Problem Malignant neoplasm of colon, unspecified part of colon C18.9 Active 835645118 Problem Attention to urostomy Z43.6 Active 710556510 ALLERGIES No Information ENCOUNTERS Encounter Location Date Diagnosis [facility] [id number] [place] [address] Aug, [facility] [address] [place] [address] Jun, Neuropathy G62.9 and Encounter for Medic are annual wellness exam Z00.00 [place] [address] [address] Jun, Primary insomnia F51.01 [facility] [address] [address] 17 Jun, 2019 Primary insomnia F51.01 ; Encounter for Medicare annual wellness exam Z00.00 and Neuropathy G62.9 [place] [address] [address] Jun, Malignant neoplasm of colon, unspecified part of colon C18.9 and Chronic fatigue, unspecified R53.82 [place] [address] [address] May, Neuropathy G62.9 and Encounter for Medic are annual wellness exam Z00.00 [place] [address] [address] 15 May, 2019 Primary insomnia F51.01 [place] [address] [address] May, Neuropathy G62.9 and Anxiety F41.9 [place] [address] [address] Apr, Encounter for Medicare annual wellness e xam Z00.00 [place] [address] [address] 16 Apr, 2019 Neuropathy G62.9 and Encounter for Medic are annual wellness exam Z00.00 [place] [address] [address] Mar, Neuropathy G62.9 and Primary insomnia F5 1.01 [place] [address] [address] Mar, [place] [address] [address] Feb, Primary insomnia F51.01 ; Neuropathy G62 .9 and Encounter for Medicare annual wellness exam Z00.00 [place] [address] [address] Feb, Neuropathy G62.9 and Encounter for Medic are annual wellness exam Z00.00 [place] [address] [address] Feb, Primary insomnia F51.01 and High risk me dication use Z79.899 [facility] [address] [address] Jan, [facility] [address] [address] Jan, Neuropathy G62.9 [facility] [address] [address] Dec, [facility] [address] [address] Dec, Encounter for Medicare annual wellness e xam Z00.00 and Neuropathy G62.9 [place] [address] [address] November, [place] [address] [address] November, Encounter for Medicare annual wellness e xam Z00.00 ; 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 ; Mood disorder F39 ; Chronic fatigue, unspecified R53.82 and Neuropathy G62.9 [facility] [address] [address] November, Neuropathy G62.9 [facility] [address] [address] Oct, Neuropathy G62.9 [facility] [address] [address] Oct, Hypertension, benign I10 and Anxiety F41 .9 [facility] [address] [address] Oct, [facility] [address] [address] Oct, [facility] [address] [address] Oct, [facility] [address] [address] Oct, Neuropathy G62.9 [facility] [address] [address] Sep, [facility] [address] [address] Sep, Neuropathy G62.9 [facility] [address] [address] Sep, [facility] [address] [address] Sep, 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 and Primary insomnia F51.01 [facility] [address] [address] Aug, [facility] [address] [address] Aug, Neuropathy G62.9 [facility] [address] [address] Aug, [facility] [address] [address] Jul, Non-recurrent acute suppurative otitis m edia of left ear without spontaneous rupture of tympanic membrane H66.002 [facility] [address] [address] Jul, Neuropathy G62.9 [facility] [address] [address] Jun, [facility] [address] [address] Jun, [facility] [address] [address] Jun, Neuropathy G62.9 [facility] [address] [address] Jun, [facility] [address] [address] Jun, [place] [address] [address] 05 Jun, 2018 Lumbar neuritis M54.16 [place] [address] [place] [id number] 30 May, 2018 Neuropathy G62.9 [place] [address] [address] May, [place] [address] [address] 05 May, 2018 Neuropathy G62.9 and Hypertension, benig n I10 [place] [address] [address] 09 Apr, 2018 Polyneuropathy G62.9 and Hypertension, b enign I10 [place] [address] [address] 17 Mar, 2018 Chronic pain syndrome G89.4 and Hyperten shalini, benign I10 [place] [address] [address] 11 Mar, 2018 Polyneuropathy G62.9 and Hypertension, b enign I10 [place] [address] [address] 27 Feb, 2018 [place] [address] [address] 16 Feb, 2018 Hypertension, benign I10 [place] [address] [address] 15 Feb, 2018 Hypertension, benign I10 ; Polyneuropath y G62.9 and Primary insomnia F51.01 [place] [address] [address] 17 Jan, 2018 Hypertension, benign I10 and Polyneuropa thy G62.9 [place] [address] [address] 16 Jan, 2018 Hypertension, benign I10 and Neuropathy G62.9 [place] [address] [address] Jan, [facility] [address] [facility] [place] [address] Dec, Polyneuropathy G62.9 [facility] [address] [facility] [place] [address] Dec, Mood disorder F39 [facility] [address] [facility] [place] [address] November, Polyneuropathy G62.9 [facility] [address] [facility] [place] [address] November, Medicare annual wellness visit, initial Z00.00 [facility] [id number] [place] [address] November, Mood disorder F39 [facility] [id number] [place] [address] Oct, Polyneuropathy G62.9 [facility] [id number] [place] [address] Oct, [facility] [address] [id number] [place] [address] Oct, [facility] [id number] [place] [address] Oct, Mood disorder F39 ; Attention to urostom y Z43.6 ; Chronic pain syndrome G89.4 and Polyneuropathy G62.9 [facility] [address] [id number] [place] [address] Sep, Polyneuropathy G62.9 [facility] [address] [id number] [place] [address] Sep, [facility] [id number] [place] [address] Sep, Polyneuropathy G62.9 [facility] [address] [id number] [place] [address] Aug, Polyneuropathy G62.9 [facility] [id number] [place] [address] Aug, Malignant neoplasm of colon, unspecified part of colon C18.9 and Polyneuropathy G62.9 [facility] [id number] [place] [address] Aug, Neuropathy G62.9 and Polyneuropathy G62. 9 [facility] [id number] [place] [address] Jul, Encounter for drug screening Z02.83 [facility] [id number] [place] [address] Jul, Polyneuropathy G62.9 [facility] [address] [address] Jul, [facility] [id number] [place] [address] Jul, Neuropathy G62.9 and Anxiety F41.9 [facility] [id number] [place] [address] Jul, [facility] [address] [address] Jul, [facility] [address] [address] Jul, [facility] [id number] [place] [address] Jul, Polyneuropathy G62.9 [facility] [id number] [place] [address] Jul, [facility] [id number] [place] [address] Jun, [facility] [id number] [place] [address] Jun, [facility] [id number] [place] [address] Jun, [facility] [address] [place], [place] [id number] [place] [address] Jun, Encounter for dental examina tion Z01.20 [facility] [address] [address] Jun, Polyneuropathy G62.9 and Anxiety F41.9 [facility] [address] [address] Jun, [facility] [address] [place] [id number] [address] May, Dental examination Z01.20 [facility] [address] [address] May, Polyneuropathy G62.9 [facility] [address] [address] Apr, Polyneuropathy G62.9 [facility] [address] [address] Apr, Polyneuropathy G62.9 [facility] [address] [address] Apr, Hypertension, benign I10 ; Polyneuropath y G62.9 and Anxiety F41.9 [facility] [address] [address] Apr, Primary insomnia F51.01 and Polyneuropat hy G62.9 [facility] [address] [address] Apr, Primary insomnia F51.01 and Polyneuropat hy G62.9 [facility] [address] [address] Mar, Primary insomnia F51.01 [facility] [address] [address] Mar, [facility] [address] [address] Mar, Polyneuropathy G62.9 [facility] [id number] [place] [address] Feb, Primary insomnia F51.01 [facility] [address] [id number] [place] [address] Feb, [facility] [address] [id number] [place] [address] Feb, [facility] [id number] [place] [address] Feb, Polyneuropathy G62.9 [facility] [address] [id number] [place] [address] Feb, Primary insomnia F51.01 [facility] [id number] [place] [address] Jan, [facility] [id number] [place] [address] Jan, [facility] [id number] [place] [address] Dec, [facility] [address] [facility] [place] [address] Dec, Primary insomnia F51.01 [facility] [id number] [place] [address] Dec, Primary insomnia F51.01 [facility] [id number] [place] [address] Dec, [facility] [id number] [place] [address] Dec, [facility] [id number] [place] [address] Dec, [facility] [id number] [place] [address] Dec, [facility] [address] [id number] [place] [address] November, Primary insomnia F51.01 and Polyneuropat hy G62.9 [facility] [id number] [place] [address] November, [facility] [address] [address] November, Abdominal pain, left lower quadrant R10. 32 [facility] [address] [address] November, [facility] [address] [address] Oct, [facility] [address] [address] Oct, Abdominal pain, left lower quadrant R10. 32 ; 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 and Neuropathy G62.9 [facility] [address] [address] Oct, [facility] [address] [address] Sep, [facility] [address] [id number] [id number] Sep, [facility] [address] [address] Sep, [facility] [address] [address] Aug, [facility] [address] [address] Aug, [facility] [address] [address] Aug, Abdominal pain, left lower quadrant R10. 32 ; Neuropathy G62.9 and Anxiety F41.9 [facility] [address] [place] [address] Jul, [facility] [address] [address] Jul, [facility] [address] [facility] [id number] [address] [place] [address] Jul, [facility] [id number] [place] [address] Jul, [facility] [id number] [place] [address] Jul, [facility] [id number] [place] [address] Jun, [facility] [id number] [place] [address] May, [facility] [id number] [place] [address] May, [facility] [address] [address] Apr, [facility] [id number] [place] [address] Apr, Muscle spasms of both lower extremities M62.838 and Cellulitis, unspecified cellulitis site L03.90 [facility] [id number] [place] [address] Apr, [facility] [id number] [place] [address] 23 Mar, 2016 Generalized abdominal pain R10.84 [facility] [id number] [place] [address] 20 Mar, 2015 [facility] [id number] [place] [address] 14 Mar, 2016 [facility] [id number] [place] [address] 14 Mar, 2015 [facility] [id number] [place] [address] 13 Mar, 2016 [facility] [id number] [place] [address] 12 Mar, 2015 [facility] [id number] [place] [address] 09 Mar, 2015 [facility] [id number] [place] [address] Mar, [facility] [id number] [place] [address] Feb, Other specified diseases of anus and rec wilton K62.89 [facility] [id number] [place] [address] Feb, [facility] [id number] [place] [address] Feb, Dizziness R42 [facility] [id number] [place] [address] Feb, [facility] [address] [address] Jan, Polyneuropathy G62.9 [facility] [address] [address] Jan, Other specified diseases of anus and rec wilton K62.89 [facility] [id number] [place] [address] Jan, [facility] [address] [facility] [id number] [address] [place] [address] Jan, [facility] [id number] [place] [address] Jan, [facility] [id number] [place] [address] Jan, Dizziness R42 [facility] [id number] [place] [address] Dec, [facility] [id number] [place] [address] Dec, [facility] [address] [address] Dec, [facility] [id number] [place] [address] Dec, Dizziness R42 [facility] [address] [address] November, [facility] [id number] [place] [address] Oct, [facility] [id number] [place] [address] Oct, [facility] [id number] [place] [address] Oct, [facility] [address] [address] Oct, [facility] [id number] [place] [address] Sep, [facility] [address] [address] Sep, Primary insomnia F51.01 [facility] [address] [address] Sep, Primary insomnia F51.01 [facility] [id number] [place] [address] Sep, [facility] [id number] [place] [address] Aug, [facility] [address] [address] Aug, [facility] [id number] [place] [address] Aug, Primary insomnia F51.01 ; Mood disorder F39 ; Nausea and vomiting, unspecified intactability, vomiting of unspecified type R11.2 and Diarrhea R19.7 [facility] [id number] [place] [address] Aug, [facility] [address] [address] 05 Aug, 2015 Folliculitis L73.9 [facility] [id number] [place] [address] Aug, [facility] [address] [place] [address] Aug, [facility] [address] [address] Jul, Folliculitis L73.9 [facility] [address] [address] Jul, [facility] [address] [address] Jun, Folliculitis L73.9 [place] [address] [address] Jun, [place] [address] [address] May, Polyneuropathy G62.9 [place] [address] [address] May, Other specified diseases of anus and rec wilton K62.89 [place] [address] [address] May, [place] [address] [address] May, Primary insomnia F51.01 [place] [address] [address] May, [place] [address] [address] May, [place] [address] [address] Apr, Other specified diseases of anus and rec wilton K62.89 ; Chronic fatigue R53.82 ; Urinary tract infection, site not specified N39.0 and Enterococcus as the cause of diseases classified elsewhere B95.2 [place] [address] [address] Apr, [place] [address] [address] Apr, [place] [address] [id number] [place] [address] 14 Apr, 2015 Unspecified inflammatory and toxic neuro carol 357.9 [facility] [address] [id number] [place] [address] 05 Apr, 2015 [facility] [address] [id number] [place] [address] 26 Mar, 2014 [facility] [id number] [place] [address] 23 Mar, 2014 [facility] [address] [id number] [place] [address] 17 Mar, 2014 [facility] [address] [id number] [place] [address] 14 Mar, 2015 Unspecified inflammatory and toxic neuro carol 357.9 [facility] [id number] [place] [address] 12 Mar, 2015 [facility] [address] [id number] [place] [address] 11 Mar, 2015 [facility] [address] [id number] [place] [address] 11 Mar, 2015 [facility] [id number] [place] [address] Mar, [facility] [address] [id number] [place] [address] Feb, [facility] [id number] [place] [address] Feb, [facility] [address] [id number] [place] [address] Feb, [facility] [id number] [place] [address] 30 Jan, 2015 [facility] [address] [id number] [place] [address] Jan, Nausea 787.02 and Neuropathy 355.9 [facility] [id number] [place] [address] Jan, [facility] [address] [id number] [place] [address] Jan, [facility] [address] [id number] [place] [address] Jan, [facility] [address] [facility] [id number] [place] [id number] Jan, Dental examination V72.2 [facility] [address] [id number] [place] [address] Jan, [facility] [address] [id number] [place] [address] Dec, [facility] [address] [id number] [place] [address] Dec, [facility] [id number] [place] [address] Dec, Neuropathy 355.9 [facility] [address] [id number] [place] [address] November, [facility] [address] [id number] [place] [address] November, [facility] [address] [id number] [place] [address] November, [facility] [address] [id number] [place] [address] Oct, [facility] [id number] [place] [address] Oct, [facility] [address] [id number] [place] [address] Sep, [facility] [address] [id number] [place] [address] Sep, [facility] [address] [id number] [place] [address] Sep, [facility] [address] [id number] [place] [address] Sep, [facility] [address] [id number] [place] [address] Sep, [facility] [id number] [place] [address] Sep, [facility] [address] [facility] [id number] [place] [address] Sep, [facility] [address] [id number] [place] [address] Sep, [facility] [address] [id number] [place] [address] Aug, [facility] [id number] [place] [address] Aug, [facility] [id number] [place] [address] Aug, [facility] [address] [id number] [place] [address] Aug, [facility] [address] [facility] [id number] [place] [address] Aug, [facility] [address] [facility] [id number] [place] [address] Aug, [facility] [address] [id number] [place] [address] Aug, [facility] [address] [id number] [place] [address] Aug, [facility] [address] [id number] [place] [address] Jul, [facility] [id number] [place] [address] Jul, [facility] [address] [facility] [id number] [place] [address] Jun, [facility] [address] [id number] [place] [address] Jun, [facility] [address] [facility] [id number] [place] [address] Jun, [facility] [address] [facility] [id number] [place] [address] Jun, [facility] [address] [id number] [place] [address] Jun, [facility] [address] [id number] [place] [address] Jun, [facility] [address] [id number] [place] [address] Jun, [facility] [address] [id number] [place] [address] Jun, [facility] [address] [id number] [place] [address] Jun, [facility] [address] [id number] [place] [address] Jun, [facility] [address] [id number] [place] [address] Jun, [facility] [address] [id number] [place] [address] May, [facility] [address] [id number] [place] [address] May, [facility] [address] [id number] [place] [address] May, [facility] [address] [id number] [place] [address] May, [facility] [address] [id number] [place] [address] May, [facility] [address] [id number] [place] [address] May, [facility] [address] [id number] [place] [address] May, [facility] [address] [id number] [place] [address] May, [facility] [address] [facility] [id number] [facility] [place] [address] May, [facility] [address] [facility] [id number] [facility] [place] [address] Apr, [facility] [address] [facility] [id number] [facility] [place] [address] Apr, [facility] [address] [facility] [id number] [place] [address] Apr, [facility] [address] [facility] [id number] [facility] [place] [address] Apr, [facility] [address] [facility] [id number] [place] [address] Apr, [facility] [address] [facility] [id number] [place] [address] Mar, [facility] [facility] [address] [id number] [place] [address] Mar, [facility] [address] [facility] [id number] [place] [address] Feb, [facility] [address] [facility] [id number] [place] [address] Feb, [facility] [address] [id number] [place] [address] Feb, [facility] [address] [id number] [place] [address] Feb, [facility] [address] [facility] [id number] [place] [address] Feb, [facility] [address] [facility] [id number] [place] [address] Feb, [facility] [address] [id number] [facility] [place] [address] Jan, [facility] [address] [facility] [id number] [place] [address] Jan, [facility] [address] [id number] [place] [address] Jan, [facility] [address] [id number] [place] [address] Jan, [facility] [address] [facility] [id number] [facility] [place] [address] Jan, [facility] [address] [facility] [id number] [place] [address] Jan, [facility] [address] [facility] [id number] [facility] [place] [address] Jan, [facility] [address] [facility] [id number] [place] [address] Jan, [facility] [address] [facility] [id number] [place] [address] Jan, [facility] [address] [id number] [place] [address] Jan, [facility] [address] [id number] [place] [address] Jan, [facility] [address] [facility] [id number] [place] [address] Dec, [facility] [address] [id number] [place] [address] Dec, [facility] [address] [id number] [place] [address] Dec, [facility] [address] [id number] [place] [address] Dec, [facility] [address] [facility] [id number] [place] [address] Dec, [facility] [address] [facility] [id number] [place] [address] Dec, [facility] [address] [facility] [id number] [place] [address] November, [facility] [address] [id number] [place] [address] November, [facility] [address] [id number] [place] [address] November, [facility] [address] [facility] [id number] [facility] [place] [address] November, [facility] [address] [facility] [id number] [place] [address] November, [facility] [address] [id number] [place] [address] November, [facility] [address] [facility] [id number] [facility] [place] [address] Oct, [facility] [address] [facility] [id number] [facility] [place] [address] Oct, [facility] [address] [id number] [place] [address] Oct, [facility] [address] [id number] [place] [address] Oct, [facility] [address] [id number] [place] [address] Sep, [facility] [address] [facility] [id number] [place] [address] Sep, [facility] [address] [id number] [place] [address] Sep, [facility] [address] [id number] [place] [address] Sep, [facility] [address] [id number] [place] [address] Sep, [facility] [address] [facility] [id number] [place] [address] Aug, [facility] [address] [id number] [place] [address] Aug, [facility] [address] [facility] [id number] [place] [address] Aug, [facility] [address] [id number] [place] [address] Aug, [facility] [address] [facility] [id number] [place] [address] 14 Aug, 2013 [facility] [address] [place] [id number] May, [facility] [address] [id number] [place] [address] May, [facility] [address] [id number] [place] [address] May, [facility] [address] [facility] [id number] [place] [address] May, [facility] [address] [id number] [place] [address] May, [facility] [address] [id number] [place] [address] Apr, [facility] [address] [id number] [place] [address] Apr, [facility] [address] [id number] [place] [address] Apr, [facility] [address] [id number] [place] [address] Apr, [facility] [address] [id number] [place] [address] Apr, [facility] [address] [id number] [place] [address] Apr, [facility] [address] [id number] [place] [address] Apr, [facility] [address] [id number] [place] [address] 28 Mar, 2013 [facility] [address] [id number] [place] [address] 25 Mar, 2013 [facility] [address] [id number] [place] [address] 24 Mar, 2013 [facility] [address] [id number] [place] [address] 16 Mar, 2013 [facility] [address] [id number] [place] [address] Mar, [facility] [address] [id number] [facility] [place] [address] Mar, [facility] [address] [id number] [place] [address] Feb, [facility] [address] [id number] [facility] [place] [address] Feb, [facility] [address] [facility] [id number] [place] [address] Feb, [facility] [address] [id number] [place] [address] Feb, [facility] [address] [id number] [place] [address] Feb, [facility] [address] [id number] [place] [address] Feb, [facility] [address] [id number] [place] [address] Jan, [facility] [address] [id number] [place] [address] Dec, [facility] [address] [id number] [place] [address] Dec, [facility] [address] [id number] [place] [address] Dec, [facility] [address] [id number] [place] [address] Dec, [facility] [address] [id number] [place] [address] Dec, [facility] [address] [id number] [place] [address] 18 Dec, 2012 [facility] [address] [id number] [place] [address] Dec, [facility] [address] [id number] [place] [address] Dec, [facility] [address] [id number] [place] [address] Dec, [facility] [address] [id number] [place] [address] November, [facility] [address] [id number] [place] [address] November, [facility] [address] [id number] [place] [address] Oct, [facility] [address] [id number] [place] [address] Sep, [facility] [address] [id number] [place] [address] Sep, [facility] [address] [id number] [place] [address] Sep, [facility] [address] [id number] [place] [address] Sep, [facility] [address] [id number] [place] [address] Aug, [facility] [id number] [place] [address] Aug, [facility] [address] [id number] [place] [address] Jul, [facility] [id number] [place] [address] Jul, [facility] [address] [id number] [place] [address] Jul, [facility] [id number] [place] [address] Sep, [facility] [address] [id number] [place] [address] Sep, [facility] [address] [id number] [place] [address] Sep, IMMUNIZATIONS No Known Immunizations SOCIAL HISTORY Never Assessed REASON FOR VISIT PLAN OF CARE VITAL SIGNS Height 67 in 2013-12-11 Weight 163.1 lbs 2013-12-11 Temperature 97.3 degrees Fahrenheit 2013-12-11 Heart Rate 70 bpm 2013-12-11 Respiratory Rate 16 2013-12-11 Blood pressure systolic 132 mmHg 2013-12-11 Blood pressure diastolic 100 mmHg 2013-12-11 MEDICATIONS Unknown Medications RESULTS No Results PROCEDURES [...] bowel obstruction, Dehydration -[facility] 01/01/17 Hospitalization History [facility]- UTI/Sepsis 01/18/2018 Hospitalization History [facility] - infection 4 days 05/2018
--- OUTSIDE RECORDS SUMMARY | 2020-01-14 23:03 | XMS REPORT ---
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 Name Role Phone LINDA BENTLEY Unavailable PROBLEMS Type Condition ICD9-CM Code EDK93-UR Code Onset Dates Condition S tatus SNOMED Code Problem Incontinence of feces, unspecified fecal incontinence type R15.9 Active 82141643 Problem Primary insomnia F51.01 Active 193 058497 Problem Hydronephrosis with ureteral stricture, not else where classified N13.1 Active 58854354 Problem Chronic fatigue, unspecified R53.82 A ctive 492656622 Problem Hypertension, benign I10 Active 33708554 Problem Mood disorder F39 Active 469528 05 Problem Neuropathy G62.9 Active 714268161 Problem Chronic pain syndrome G89.4 Active 814846181 Problem Abdominal pain, left lower quadrant R10.32 Active 074208320 Problem 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 Active 728093607 Problem 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 921926602 Problem Anxiety F41.9 Active 85523491 Problem Polyneuropathy G62.9 Active 78904 000 Problem Malignant neoplasm of colon, unspecified part of colon C18.9 Active 129702810 Problem Attention to urostomy Z43.6 Active [id number] ALLERGIES No Information ENCOUNTERS Encounter Location Date Diagnosis [facility] [address] [facility] [id number] [address] [place] [phone] Apr, [facility] [address] [facility] [id number] [address] [place] [phone] Mar, Neuropathy G62.9 and Primary insomnia F51.01 [facility] [address] [facility] [id number] [address] [place] [phone] Mar, [facility] [address] [facility] [id number] [address] [place] [phone] Feb, Primary insomnia F51.01 ; Ne uropathy G62.9 and Encounter for Medicare annual wellness exam Z00.00 [facility] [address] [id number] [address] [place] [phone] Feb, Neuropathy G62.9 and Encount er for Medicare annual wellness exam Z00.00 [facility] [address] [id number] [address] [place] [phone] Feb, Primary insomnia F51.01 and High risk medication use Z79.899 [facility] [address] [id number] [address] [place] [phone] Jan, [facility] [address] [id number] [address] [place] [phone] Jan, Neuropathy G62.9 [facility] [address] [id number] [address] [place] [phone] Dec, [facility] [address] [id number] [address] [place] [id number] Dec, Encounter for Medicare annua l wellness exam Z00.00 and Neuropathy G62.9 [facility] [address] [id number] [address] [place] [phone] November, [facility] [address] [id number] [address] [place] [phone] November, Encounter for Medicare annua l wellness exam Z00.00 ; 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 ; Mood disorder F39 ; Chronic fatigue, unspecified R53.82 and Neuropathy G62.9 [facility] [address] [id number] [address] [place] [phone] November, Neuropathy G62.9 [facility] [address] [id number] [address] [place] [phone] Oct, Neuropathy G62.9 [facility] [address] [id number] [address] [place] [phone] Oct, Hypertension, benign I10 and Anxiety F41.9 [facility] [address] [id number] [address] [place] [phone] Oct, [facility] [address] [id number] [address] [place] [phone] Oct, [facility] [address] [id number] [address] [place] [phone] Oct, [facility] [address] [id number] [address] [place] [phone] Oct, Neuropathy G62.9 [facility] [address] [id number] [address] [place] [phone] Sep, [facility] [address] [facility] [id number] [address] [place] [phone] Sep, Neuropathy G62.9 [facility] [address] [facility] [id number] [address] [place] [phone] Sep, [facility] [address] [id number] [address] [place] [phone] Sep, H/O malignant carcinoid tumo r of 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 and Primary insomnia F51.01 [facility] [address] [id number] [address] [place] [phone] Aug, [facility] [address] [id number] [address] [place] [phone] Aug, Neuropathy G62.9 [facility] [address] [id number] [address] [place] [phone] Aug, [facility] [address] [facility] [id number] [address] [place] [phone] Jul, Non-recurrent acute suppurat francine otitis media of left ear without spontaneous rupture of tympanic membrane H66.002 [facility] [address] [facility] [id number] [address] [place] [phone] Jul, Neuropathy G62.9 [facility] [address] [id number] [address] [place] [phone] Jun, [facility] [address] [facility] [id number] [address] [place] [phone] Jun, [facility] [address] [facility] [id number] [address] [place] [phone] Jun, Neuropathy G62.9 [facility] [address] [facility] [id number] [address] [place] [phone] Jun, [facility] [address] [facility] [id number] [address] [place] [phone] Jun, [facility] [address] [facility] [id number] [address] [place] [phone] Jun, Lumbar neuritis M54.16 [facility] [address] [facility] [id number] [address] [place] [phone] May, Neuropathy G62.9 [facility] [address] [facility] [id number] [address] [place] [phone] May, [facility] [address] [facility] [id number] [address] [place] [phone] May, Neuropathy G62.9 and Hyperte nsion, benign I10 [facility] [address] [facility] [id number] [address] [place] [phone] Apr, Polyneuropathy G62.9 and Hyp ertension, benign I10 [facility] [address] [facility] [id number] [address] [place] [phone] Mar, Chronic pain syndrome G89.4 and Hypertension, benign I10 [facility] [address] [facility] [id number] [address] [place] [phone] Mar, Polyneuropathy G62.9 and Hyp ertension, benign I10 [facility] [address] [facility] [id number] [address] [place] [phone] Feb, [facility] [address] [facility] [id number] [address] [place] [phone] 16 Feb, 2018 Hypertension, benign I10 [facility] [address] [facility] [id number] [address] [place] [phone] 15 Feb, 2018 Hypertension, benign I10 ; P olyneuropathy G62.9 and Primary insomnia F51.01 [facility] [address] [facility] [id number] [address] [place] [phone] Jan, Hypertension, benign I10 and Polyneuropathy G62.9 [facility] [address] [id number] [address] [place] [phone] Jan, Hypertension, benign I10 and Neuropathy G62.9 [facility] [address] [facility] [id number] [address] [place] [phone] Jan, [facility] [address] [facility] [id number] [address] [place] [phone] Dec, Polyneuropathy G62.9 [facility] [address] [facility] [id number] [address] [place] [phone] Dec, Mood disorder F39 [facility] [address] [facility] [id number] [address] [place] [phone] November, Polyneuropathy G62.9 [facility] [address] [facility] [id number] [address] [place] [phone] November, Medicare annual wellness vis it, initial Z00.00 [facility] [address] [facility] [id number] [address] [place] [phone] November, Mood disorder F39 [facility] [address] [facility] [id number] [address] [place] [phone] Oct, Polyneuropathy G62.9 [facility] [address] [facility] [id number] [address] [place] [phone] Oct, [facility] [address] [facility] [id number] [address] [place] [phone] Oct, [facility] [address] [place] [id number] [address] [place] [phone] Oct, Mood disorder F39 ; Attentio n to urostomy Z43.6 ; Chronic pain syndrome G89.4 and Polyneuropathy G62.9 [facility] [address] [facility] [id number] [address] [place] [phone] Sep, Polyneuropathy G62.9 [facility] [address] [place] [id number] [address] [place] [phone] Sep, [facility] [address] [place] [id number] [address] [place] [phone] Sep, Polyneuropathy G62.9 [facility] [address] [place] [id number] [address] [place] [phone] Aug, Polyneuropathy G62.9 [facility] [address] [place] [id number] [address] [place] [phone] Aug, Malignant neoplasm of colon, unspecified part of colon C18.9 and Polyneuropathy G62.9 [facility] [address] [place] [id number] [address] [place] [phone] Aug, Neuropathy G62.9 and Polyneu ropathy G62.9 [facility] [address] [place] [id number] [address] [place] [phone] Jul, Encounter for drug screening Z02.83 [facility] [address] [place] [id number] [address] [place] [phone] Jul, Polyneuropathy G62.9 [facility] [address] [facility] [id number] [address] [place] [phone] Jul, [facility] [address] [place] [id number] [address] [place] [phone] Jul, Neuropathy G62.9 and Anxiety F41.9 [facility] [address] [place] [id number] [address] [place] [phone] Jul, [place] [address] [id number] [address] [place] [phone] Jul, [facility] [address] [facility] [id number] [address] [place] [phone] Jul, [facility] [address] [facility] [id number] [address] [place] [phone] Jul, Polyneuropathy G62.9 [facility] [address] [facility] [id number] [address] [place] [phone] Jul, [facility] [address] [facility] [id number] [address] [place] [phone] Jun, [facility] [address] [facility] [id number] [address] [place] [phone] Jun, [facility] [address] [facility] [id number] [address] [place] [phone] Jun, [facility] [id number] [place] [phone] Jun, Encounter for dental examina tion Z01.20 [facility] [address] [facility] [id number] [address] [place] [phone] Jun, Polyneuropathy G62.9 and Anx iety F41.9 [facility] [address] [facility] [id number] [address] [place] [phone] Jun, [facility] [address] [id number] [address] [place] [phone] May, Dental examination Z01.20 [facility] [address] [facility] [id number] [address] [place] [phone] May, Polyneuropathy G62.9 [facility] [address] [facility] [id number] [address] [place] [phone] Apr, Polyneuropathy G62.9 [facility] [address] [facility] [id number] [address] [place] [phone] Apr, Polyneuropathy G62.9 [facility] [address] [facility] [id number] [address] [place] [phone] Apr, Hypertension, benign I10 ; P olyneuropathy G62.9 and Anxiety F41.9 [facility] [address] [id number] [address] [place] [phone] Apr, Primary insomnia F51.01 and Polyneuropathy G62.9 [facility] [address] [facility] [id number] [address] [place] [phone] Apr, Primary insomnia F51.01 and Polyneuropathy G62.9 [facility] [address] [facility] [id number] [address] [place] [phone] Mar, Primary insomnia F51.01 [facility] [address] [facility] [id number] [address] [place] [phone] Mar, [facility] [address] [facility] [id number] [address] [place] [phone] Mar, Polyneuropathy G62.9 [facility] [address] [facility] [id number] [address] [place] [phone] Feb, Primary insomnia F51.01 [facility] [address] [facility] [id number] [address] [place] [phone] Feb, [facility] [address] [facility] [id number] [address] [place] [phone] Feb, [facility] [address] [facility] [id number] [address] [place] [phone] Feb, Polyneuropathy G62.9 [facility] [address] [facility] [id number] [address] [place] [phone] Feb, Primary insomnia F51.01 [facility] [address] [facility] [id number] [address] [place] [phone] Jan, [facility] [address] [facility] [id number] [address] [place] [phone] Jan, [facility] [address] [id number] [address] [place] [phone] Dec, [facility] [address] [id number] [address] [place] [phone] Dec, Primary insomnia F51.01 [facility] [address] [id number] [address] [place] [phone] Dec, Primary insomnia F51.01 [facility] [address] [id number] [address] [place] [phone] Dec, [facility] [address] [id number] [address] [place] [phone] Dec, [facility] [address] [id number] [address] [place] [phone] Dec, [facility] [address] [id number] [address] [place] [phone] Dec, [facility] [address] [id number] [address] [place] [phone] November, Primary insomnia F51.01 and Polyneuropathy G62.9 [facility] [address] [id number] [address] [place] [phone] November, [facility] [address] [id number] [address] [place] [phone] November, Abdominal pain, left lower q uadrant R10.32 [facility] [address] [id number] [address] [place] [phone] November, [facility] [address] [id number] [address] [place] [phone] Oct, [facility] [address] [id number] [address] [place] [phone] Oct, Abdominal pain, left lower q uadrant R10.32 ; 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 and Neuropathy G62.9 [facility] [address] [id number] [address] [place] [phone] Oct, [facility] [address] [id number] [address] [place] [address], [place] [address] Sep, [facility] [address] [id number] [facility] [place] [id number] Sep, [facility] [address] [id number] [address] [place] [phone] Sep, [facility] [address] [id number] [address] [place] [phone] Aug, [facility] [address] [id number] [address] [place] [address], [place] [address] Aug, [facility] [address] [facility] [id number] [address] [place] [phone] Aug, Abdominal pain, left lower q uadrant R10.32 ; Neuropathy G62.9 and Anxiety F41.9 [facility] [address] [facility] [place] [address] Jul, [facility] [address] [id number] [address] [place] [phone] Jul, [facility] [address] [facility] [id number] [address] [place] [phone] Jul, [facility] [address] [id number] [address] [place] [phone] Jul, [facility] [address] [id number] [address] [place] [phone] Jul, [facility] [address] [id number] [address] [place] [phone] Jun, [facility] [address] [id number] [address] [place] [phone] May, [facility] [address] [id number] [address] [place] [phone] May, [facility] [address] [id number] [address] [place] [phone] Apr, [facility] [address] [id number] [address] [place] [phone] Apr, Muscle spasms of both lower extremities M62.838 and Cellulitis, unspecified cellulitis site L03.90 [facility] [address] [id number] [address] [place] [phone] 07 Apr, 2016 [facility] [address] [id number] [address] [place] [phone] 23 Mar, 2016 Generalized abdominal pain R 10.84 [facility] [address] [id number] [address] [place] [phone] 20 Mar, 2016 [facility] [address] [id number] [address] [place] [phone] 14 Mar, 2016 [facility] [address] [id number] [address] [place] [phone] 14 Mar, 2016 [facility] [address] [id number] [address] [place] [phone] 13 Mar, 2016 [facility] [address] [id number] [address] [place] [phone] 12 Mar, 2016 [facility] [address] [id number] [address] [place] [phone] 09 Mar, 2016 [facility] [address] [id number] [address] [place] [phone] 06 Mar, 2016 [facility] [address] [id number] [address] [place] [id number] 17 Feb, 2016 Other specified diseases of anus and rectum K62.89 [facility] [address] [id number] [address] [place] [phone] 15 Feb, 2016 [facility] [address] [id number] [address] [place] [phone] 09 Feb, 2016 Dizziness R42 [facility] [address] [id number] [address] [place] [address], [place] [phone] Feb, [facility] [address] [id number] [address] [place] [phone] Jan, Polyneuropathy G62.9 [facility] [address] [id number] [address] [place] [address], [place] [address] Jan, Other specified diseases of anus and rectum K62.89 [facility] [address] [id number] [address] [place] [address], [place] [phone] Jan, [facility] [address] [id number] [address] [place] [address], [place] [phone] Jan, [facility] [address] [id number] [address] [place] [phone] Jan, [facility] [address] [id number] [address] [place] [phone] Jan, Dizziness R42 [facility] [address] [id number] [address] [place] [phone] Dec, [facility] [address] [id number] [address] [place] [address], [place] [phone] Dec, [facility] [address] [id number] [address] [place] [phone] Dec, [facility] [address] [id number] [address] [place] [phone] Dec, Dizziness R42 [facility] [address] [id number] [address] [place] [phone] November, [facility] [address] [id number] [address] [place] [phone] Oct, [facility] [address] [id number] [address] [place] [phone] Oct, [facility] [address] [id number] [address] [place] [phone] Oct, [facility] [address] [facility] [id number] [address] [place] [phone] Oct, [facility] [address] [id number] [address] [place] [phone] 30 Sep, 2015 [facility] [address] [facility] [id number] [address] [place] [id number] Sep, Primary insomnia F51.01 [facility] [address] [facility] [id number] [address] [place] [phone] Sep, Primary insomnia F51.01 [facility] [address] [facility] [id number] [address] [place] [phone] Sep, [facility] [address] [id number] [address] [place] [phone] Aug, [facility] [address] [phone] Aug, [facility] [address] [id number] Aug, Primary insomnia F51.01 ; Mo od disorder F39 ; Nausea and vomiting, unspecified intactability, vomiting of unspecified type R11.2 and Diarrhea R19.7 [facility] [address] [place] [id number] [address] [place] [phone] Aug, [facility] [address] [id number] [address] [place] [phone] Aug, Folliculitis L73.9 [facility] [address] [id number] [address] [place] [phone] Aug, [facility] [address] [id number] [place] [phone] Aug, [facility] [address] [id number] [address] [place] [phone] Jul, Folliculitis L73.9 [facility] [id number] [place] [address] [place] [phone] Jul, [facility] [address] [id number] [address] [place] [phone] Jun, Folliculitis L73.9 [facility] [address] [id number] [address] [place] [phone] Jun, [facility] [address] [facility] [facility] [id number] [address] [place] [id number] May, Polyneuropathy G62.9 [facility] [address] [id number] [address] [place] [phone] May, Other specified diseases of anus and rectum K62.89 [facility] [address] [facility] [id number] [address] [place] [phone] May, [facility] [address] [facility] [id number] [address] [place] [phone] May, Primary insomnia F51.01 [facility] [address] [facility] [id number] [address] [place] [phone] May, [facility] [address] [facility] [id number] [address] [place] [id number] May, [facility] [address] [facility] [id number] [address] [place] [phone] Apr, Other specified diseases of anus and rectum K62.89 ; Chronic fatigue R53.82 ; Urinary tract infection, site not specified N39.0 and Enterococcus as the cause of diseases classified elsewhere B95.2 [facility] [address] [facility] [id number] [address] [place] [id number] Apr, [facility] [address] [facility] [id number] [address] [place] [phone] Apr, [facility] [address] [facility] [id number] [address] [place] [phone] 14 Apr, 2015 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 [facility] [address] [id number] [address] [place] [phone] 05 Apr, 2015 [facility] [address] [id number] [address] [place] [id number] 26 Mar, 2015 [facility] [address] [id number] [address] [place] [phone] 23 Mar, 2014 [facility] [address] [id number] [address] [place] [phone] 17 Mar, 2014 [facility] [address] [id number] [address] [place] [id number] 14 Mar, 2015 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 [facility] [address] [id number] [address] [place] [phone] 12 Mar, 2015 [facility] [address] [id number] [address] [place] [id number] 11 Mar, 2015 [facility] [address] [id number] [address] [place] [phone] 11 Mar, 2015 [facility] [address] [id number] [address] [place] [phone] 10 Mar, 2015 [facility] [address] [id number] [address] [place] [phone] 28 Feb, 2015 [facility] [address] [id number] [address] [place] [phone] Feb, [facility] [address] [id number] [address] [place] [phone] Feb, [facility] [address] [id number] [address] [place] [phone] 30 Jan, 2015 [facility] [address] [id number] [address] [place] [id number] Jan, Nausea 787.02 and Neuropathy 355.9 [facility] [address] [id number] [address] [place] [phone] Jan, [facility] [address] [id number] [address] [place] [phone] Jan, [facility] [address] [id number] [address] [place] [id number] Jan, [facility] [address] [id number] [address] [place] [id number] 10 Jan, 2015 Dental examination V72.2 [facility] [address] [id number] [address] [place] [phone] Jan, [facility] [address] [id number] [address] [place] [phone] Dec, [facility] [address] [id number] [address] [place] [phone] Dec, [facility] [address] [id number] [address] [place] [phone] Dec, Neuropathy 355.9 [facility] [address] [id number] [address] [place] [address], [place] [address] November, [facility] [address] [id number] [address] [place] [phone] November, [facility] [address] [id number] [address] [place] [address], [place] [address] November, [facility] [address] [id number] [address] [place] [phone] Oct, [facility] [address] [id number] [address] [place] [phone] Oct, [facility] [address] [id number] [address] [place] [phone] Sep, [facility] [address] [id number] [address] [place] [phone] Sep, [facility] [address] [id number] [address] [place] [phone] Sep, [facility] [address] [id number] [address] [place] [phone] Sep, [facility] [address] [id number] [address] [place] [address], [place] [address] Sep, [facility] [address] [id number] [address] [place] [address], [place] [address] Sep, [facility] [address] [id number] [address] [place] [address], [place] [address] Sep, [facility] [address] [id number] [address] [place] [address], [place] [address] Sep, [facility] [address] [id number] [address] [place] [address], [place] [address] Aug, [facility] [address] [id number] [address] [place] [address], [place] [address] Aug, 2014 [facility] [address] [id number] [address] [place] [address], [place] [address] Aug, [facility] [address] [id number] [address] [place] [address], [place] [address] Aug, [facility] [address] [id number] [address] [place] [address], [place] [address] Aug, [facility] [address] [id number] [address] [place] [address], [place] [address] Aug, [facility] [address] [id number] [address] [place] [address], [place] [address] Aug, [facility] [address] [id number] [address] [place] [address], [place] [address] Aug, [facility] [address] [id number] [address] [place] [address], [place] [address] Jul, [facility] [address] [id number] [address] [place] [address], [place] [address] Jul, [facility] [address] [id number] [address] [place] [address], [place] [address] Jun, [facility] [address] [id number] [address] [place] [address], [place] [address] Jun, [facility] [address] [id number] [address] [place] [address], [place] [address] Jun, [facility] [address] [id number] [address] [place] [address], [place] [address] Jun, [facility] [address] [id number] [address] [place] [address], [place] [address] Jun, [facility] [address] [id number] [address] [place] [address], [place] [address] Jun, [facility] [address] [id number] [address] [place] [address], [place] [address] Jun, [facility] [address] [id number] [address] [place] [address], [place] [address] Jun, [facility] [address] [id number] [address] [place] [address], [place] [address] Jun, [facility] [address] [id number] [address] [place] [address], [place] [address] Jun, [facility] [address] [id number] [address] [place] [address], [place] [address] Jun, [facility] [address] [id number] [address] [place] [address], [place] [address] May, [facility] [address] [id number] [address] [place] [address], [place] [address] May, [facility] [address] [id number] [address] [place] [address], [place] [address] May, [facility] [address] [id number] [address] [place] [address], [place] [address] May, [facility] [address] [id number] [address] [place] [address], [place] [address] May, [facility] [address] [id number] [address] [place] [address], [place] [address] May, [facility] [address] [id number] [address] [place] [address], [place] [address] May, [facility] [address] [id number] [address] [place] [address], [place] [address] May, [facility] [address] [id number] [address] [place] [address], [place] [address] May, [facility] [address] [id number] [address] [place] [address], [place] [address] Apr, [facility] [address] [id number] [address] [place] [address], [place] [address] Apr, [facility] [address] [id number] [address] [place] [address], [place] [address] Apr, [facility] [address] [id number] [address] [place] [address], [place] [address] Apr, [facility] [address] [id number] [address] [place] [address], [place] [address] Apr, [facility] [address] [id number] [address] [place] [address], [place] [address] Mar, [facility] [address] [id number] [address] [place] [address], [place] [address] Mar, [facility] [address] [id number] [address] [place] [address], [place] [address] Feb, [facility] [address] [id number] [address] [place] [address], [place] [address] Feb, [facility] [address] [id number] [address] [place] [address], [place] [address] Feb, [facility] [address] [id number] [address] [place] [address], [place] [address] Feb, [facility] [address] [id number] [address] [place] [address], [place] [address] Feb, [facility] [address] [id number] [address] [place] [address], [place] [address] Feb, [facility] [address] [id number] [facility] [address] Jan, [facility] [address] [id number] [facility] [address] Jan, [facility] [address] [id number] [facility] [address] Jan, [facility] [address] [id number] [facility] [address] Jan, [facility] [address] [id number] [address] [place] [address], [place] [address] Jan, [facility] [address] [id number] [address] [place] [address], [place] [address] Jan, [facility] [address] [id number] [address] [place] [address], [place] [address] Jan, [facility] [address] [id number] [address] [place] [address], [place] [address] Jan, [facility] [address] [id number] [address] [place] [address], [place] [address] Jan, [facility] [address] [id number] [address] [place] [address], [place] [address] Jan, [facility] [address] [id number] [address] [place] [address], [place] [address] Jan, [facility] [address] [id number] [address] [place] [address], [place] [address] Dec, [facility] [address] [id number] [address] [place] [address], [place] [address] Dec, [facility] [address] [id number] [address] [place] [address], [place] [address] Dec, [facility] [address] [id number] [address] [place] [address], [place] [address] Dec, [facility] [address] [id number] [address] [place] [address], [place] [address] Dec, [facility] [address] [id number] [address] [place] [address], [place] [address] Dec, [facility] [address] [id number] [address] [place] [address], [place] [address] November, [facility] [address] [id number] [address] [place] [address], [place] [address] November, [facility] [address] [id number] [address] [place] [address], [place] [address] November, [facility] [address] [id number] [address] [place] [address], [place] [address] November, [facility] [address] [id number] [address] [place] [address], [place] [address] November, [facility] [address] [id number] [address] [place] [address], [place] [address] November, [facility] [address] [id number] [address] [place] [address], [place] [address] Oct, [facility] [address] [id number] [address] [place] [address], [place] [address] Oct, [facility] [address] [id number] [address] [place] [address], [place] [address] Oct, [facility] [address] [id number] [address] [place] [address], [place] [address] Oct, [facility] [address] [id number] [address] [place] [address], [place] [address] Sep, [facility] [address] [id number] [address] [place] [address], [place] [address] 17 Sep, 2013 [facility] [address] [id number] [address] [place] [address], [place] [address] 13 Sep, 2013 [facility] [address] [id number] [address] [place] [address], [place] [address] Sep, [facility] [address] [id number] [address] [place] [address], [place] [address] Sep, [facility] [address] [id number] [address] [place] [address], [place] [address] Aug, [facility] [address] [id number] [address] [place] [address], [place] [address] Aug, [facility] [address] [id number] [address] [place] [address], [place] [address] Aug, [facility] [address] [id number] [address] [place] [address], [place] [address] Aug, [facility] [address] [id number] [address] [place] [address], [place] [address] Aug, [facility] [address] [place] [id number] May, [facility] [address] [id number] [address] [place] [address], [place] [address] May, [facility] [address] [id number] [address] [place] [address], [place] [address] May, [facility] [address] [id number] [address] [place] [address], [place] [address] May, [facility] [address] [id number] [address] [place] [address], [place] [address] May, [facility] [address] [id number] [address] [place] [address], [place] [address] Apr, [facility] [address] [id number] [address] [place] [address], [place] [address] Apr, [facility] [address] [id number] [address] [place] [address], [place] [address] Apr, [facility] [address] [id number] [address] [place] [address], [place] [address] Apr, [facility] [address] [id number] [address] [place] [address], [place] [address] Apr, [facility] [address] [id number] [address] [place] [address], [place] [address] Apr, [facility] [address] [id number] [address] [place] [address], [place] [address] Apr, [facility] [address] [id number] [address] [place] [address], [place] [address] Mar, [facility] [address] [id number] [address] [place] [address], [place] [address] Mar, [facility] [address] [id number] [address] [place] [address], [place] [address] 24 Mar, 2013 [facility] [address] [id number] [address] [place] [address], [place] [address] Mar, [facility] [address] [id number] [address] [place] [address], [place] [address] Mar, [facility] [address] [id number] [address] [place] [address], [place] [address] Mar, [facility] [address] [id number] [address] [place] [address], [place] [address] Feb, [facility] [address] [id number] [address] [place] [address], [place] [address] Feb, [facility] [address] [id number] [address] [place] [address], [place] [address] Feb, [facility] [address] [id number] [address] [place] [address], [place] [address] Feb, [facility] [address] [id number] [address] [place] [address], [place] [address] Feb, [facility] [address] [id number] [address] [place] [address], [place] [address] Feb, [facility] [address] [id number] [address] [place] [address], [place] [address] Jan, [facility] [address] [id number] [address] [place] [address], [place] [address] Dec, [facility] [address] [id number] [address] [place] [address], [place] [address] Dec, [facility] [address] [id number] [address] [place] [address], [place] [address] Dec, [facility] [address] [id number] [address] [place] [address], [place] [address] Dec, [facility] [address] [id number] [address] [place] [address], [place] [address] Dec, [facility] [address] [id number] [address] [place] [address], [place] [address] Dec, [facility] [address] [id number] [address] [place] [address], [place] [address] Dec, [facility] [address] [id number] [address] [place] [address], [place] [address] Dec, [facility] [address] [id number] [address] [place] [address], [place] [address] Dec, [facility] [address] [id number] [address] [place] [address], [place] [address] November, [facility] [address] [id number] [address] [place] [address], [place] [address] November, [facility] [address] [id number] [address] [place] [address], [place] [address] Oct, [facility] [address] [id number] [address] [place] [address], [place] [address] Sep, [facility] [address] [id number] [address] [place] [address], [place] [phone] Sep, [facility] [address] [id number] [address] [place] [address], [place] [phone] Sep, [facility] [address] [id number] [address] [place] [phone] Sep, [facility] [address] [facility] [id number] [address] [place] [phone] Aug, [facility] [address] [facility] [id number] [address] [place] [phone] Aug, [facility] [address] [facility] [id number] [address] [place] [phone] Jul, [facility] [address] [facility] [id number] [address] [place] [phone] Jul, [facility] [address] [facility] [id number] [address] [place] [phone] Jul, [facility] [address] [facility] [id number] [address] [place] [phone] Sep, [facility] [address] [facility] [id number] [address] [place] [phone] Sep, [facility] [address] [facility] [id number] [address] [place] [phone] Sep, IMMUNIZATIONS No Known Immunizations SOCIAL HISTORY Never Assessed REASON FOR VISIT PLAN OF CARE VITAL SIGNS Height 67 in 2014-01-29 Weight 180 lbs 2014-01-29 Temperature 97.9 degrees Fahrenheit 2014-01-29 Heart Rate 74 bpm 2014-01-29 Respiratory Rate 18 2014-01-29 Blood pressure systolic 148 mmHg 2014-01-29 Blood pressure diastolic 90 mmHg 2014-01-29 MEDICATIONS Unknown Medications RESULTS No Results PROCEDURES [...] my by dr. Cook d/t rectal cancer 12/06. Hospitalization History Intractable n/v, chronic, abd pain, acute renal 03/27/2015 Hospitalization History [facility] for dizziness and nausea 12/06 Hospitalization History UTI, AMS-[facility] 09/21/16 Hospitalization History Large bowel obstruction, Dehydration -[facility] 01/01/17 [facility] Hospital[facility] History [facility] - infection 4 days 05/2018
--- OUTSIDE RECORDS SUMMARY | 2020-01-14 23:03 | XMS REPORT ---
Author Author Melvin BENTLEY Organization [facility] Address [address] [place] [address] Care Team Providers Care Clam Grower Name Role Phone LINDA BENTLEY Unavailable PROBLEMS Type Condition ICD9-CM Code ICV02-XC Code Onset Dates Condition S tatus SNOMED Code Problem Incontinence of feces, unspecified fecal incontinence type R15.9 Active 27192759 Problem Primary insomnia F51.01 Active 193 198376 Problem Hydronephrosis with ureteral stricture, not else where classified N13.1 Active 32512359 Problem Chronic fatigue, unspecified R53.82 A ctive 707672308 Problem Hypertension, benign I10 Active 85054545 Problem Mood disorder F39 Active 598127 05 Problem Neuropathy G62.9 Active 920102295 Problem Chronic pain syndrome G89.4 Active 182743516 Problem Abdominal pain, left lower quadrant R10.32 Active 313740682 Problem 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 Active 655922686 Problem 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 360095323 Problem Anxiety F41.9 Active 55258095 Problem Polyneuropathy G62.9 Active 13352 000 Problem Malignant neoplasm of colon, unspecified part of colon C18.9 Active 157352128 Problem Attention to urostomy Z43.6 Active 208115536 ALLERGIES No Information ENCOUNTERS Encounter Location Date Diagnosis [facility] [address] [facility] [id number] [address] [place] [phone] Apr, [facility] [address] [facility] [id number] [address] [place] [phone] Mar, Neuropathy G62.9 and Primary insomnia F51.01 [facility] [address] [facility] [id number] [address] [place] [phone] Mar, [facility] [address] [facility] [id number] [address] [place] [phone] Feb, Primary insomnia F51.01 ; Ne uropathy G62.9 and Encounter for Medicare annual wellness exam Z00.00 [facility] [address] [id number] [address] [place] [phone] Feb, Neuropathy G62.9 and Encount er for Medicare annual wellness exam Z00.00 [facility] [address] [id number] [address] [place] [address] Feb, Primary insomnia F51.01 and High risk medication use Z79.899 [facility] [address] [id number] [address] [place] [phone] Jan, [facility] [address] [id number] [address] [place] [phone] Jan, Neuropathy G62.9 [facility] [address] [id number] [address] [place] [address] Dec, [facility] [address] [id number] [address] [place] [address] Dec, Encounter for Medicare annua l wellness exam Z00.00 and Neuropathy G62.9 [facility] [address] [id number] [address] [place] [address] November, [facility] [address] [id number] [address] [place] [address] November, Encounter for Medicare annua l wellness exam Z00.00 ; 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 ; Mood disorder F39 ; Chronic fatigue, unspecified R53.82 and Neuropathy G62.9 [facility] [address] [id number] [address] [place] [address] November, Neuropathy G62.9 [facility] [address] [id number] [address] [place] [address] Oct, Neuropathy G62.9 [facility] [address] [id number] [address] [place] [phone] Oct, Hypertension, benign I10 and Anxiety F41.9 [facility] [address] [id number] [address] [place] [phone] Oct, [facility] [address] [id number] [address] [place] [phone] Oct, [facility] [address] [id number] [address] [place] [phone] Oct, [facility] [address] [id number] [address] [place] [phone] Oct, Neuropathy G62.9 [facility] [address] [id number] [address] [place] [phone] Sep, [facility] [address] [facility] [id number] [address] [place] [address] Sep, Neuropathy G62.9 [facility] [address] [facility] [id number] [address] [place] [id number] Sep, [facility] [address] [id number] [address] [place] [id number] Sep, H/O malignant carcinoid tumo r of 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 and Primary insomnia F51.01 [facility] [address] [id number] [address] [place] [phone] Aug, [facility] [address] [id number] [address] [place] [address] Aug, Neuropathy G62.9 [facility] [address] [id number] [address] [place] [id number] Aug, [facility] [address] [facility] [id number] [address] [place] [address] Jul, Non-recurrent acute suppurat francine otitis media of left ear without spontaneous rupture of tympanic membrane H66.002 [facility] [address] [facility] [id number] [address] [place] [address] Jul, Neuropathy G62.9 [facility] [address] [id number] [address] [place] [phone] Jun, [facility] [address] [facility] [id number] [address] [place] [phone] Jun, [facility] [address] [facility] [id number] [address] [place] [phone] Jun, Neuropathy G62.9 [facility] [address] [facility] [id number] [address] [place] [phone] Jun, [facility] [address] [facility] [id number] [address] [place] [address] Jun, [facility] [address] [facility] [id number] [address] [place] [address] Jun, Lumbar neuritis M54.16 [facility] [address] [facility] [id number] [address] [place] [address] May, Neuropathy G62.9 [facility] [address] [facility] [id number] [address] [place] [phone] May, [facility] [address] [facility] [id number] [address] [place] [phone] May, Neuropathy G62.9 and Hyperte nsion, benign I10 [facility] [address] [facility] [id number] [address] [place] [phone] Apr, Polyneuropathy G62.9 and Hyp ertension, benign I10 [facility] [address] [facility] [id number] [address] [place] [address] Mar, Chronic pain syndrome G89.4 and Hypertension, benign I10 [facility] [address] [facility] [id number] [address] [place] [address] Mar, Polyneuropathy G62.9 and Hyp ertension, benign I10 [facility] [address] [facility] [id number] [address] [place] [id number] Feb, [facility] [address] [facility] [id number] [address] [place] [phone] 16 Feb, 2018 Hypertension, benign I10 [facility] [address] [facility] [id number] [address] [place] [id number] 15 Feb, 2018 Hypertension, benign I10 ; P olyneuropathy G62.9 and Primary insomnia F51.01 [facility] [address] [facility] [id number] [address] [place] [address] Jan, Hypertension, benign I10 and Polyneuropathy G62.9 [facility] [address] [id number] [address] [place] [phone] Jan, Hypertension, benign I10 and Neuropathy G62.9 [facility] [address] [facility] [id number] [address] [place] [phone] Jan, [facility] [address] [facility] [id number] [address] [place] [id number] Dec, Polyneuropathy G62.9 [facility] [address] [facility] [id number] [address] [place] [phone] Dec, Mood disorder F39 [facility] [address] [facility] [id number] [address] [place] [address] November, Polyneuropathy G62.9 [facility] [address] [facility] [id number] [address] [place] [phone] November, Medicare annual wellness vis it, initial Z00.00 [facility] [address] [facility] [id number] [address] [place] [address] November, Mood disorder F39 [facility] [address] [facility] [id number] [address] [place] [phone] Oct, Polyneuropathy G62.9 [facility] [address] [facility] [id number] [address] [place] [phone] Oct, [facility] [address] [facility] [id number] [address] [place] [phone] Oct, [facility] [address] [place] [id number] [address] [place] [id number] Oct, Mood disorder F39 ; Attentio n to urostomy Z43.6 ; Chronic pain syndrome G89.4 and Polyneuropathy G62.9 [facility] [address] [facility] [id number] [address] [place] [phone] Sep, Polyneuropathy G62.9 [facility] [address] [place] [id number] [address] [place] [phone] Sep, [facility] [address] [place] [id number] [address] [place] [address] Sep, Polyneuropathy G62.9 [facility] [address] [place] [id number] [address] [place] [address] Aug, Polyneuropathy G62.9 [facility] [address] [place] [id number] [address] [place] [phone] Aug, Malignant neoplasm of colon, unspecified part of colon C18.9 and Polyneuropathy G62.9 [facility] [address] [place] [id number] [address] [place] [phone] Aug, Neuropathy G62.9 and Polyneu ropathy G62.9 [facility] [address] [place] [id number] [address] [place] [phone] Jul, Encounter for drug screening Z02.83 [facility] [address] [place] [id number] [address] [place] [address] Jul, Polyneuropathy G62.9 [facility] [address] [facility] [id number] [address] [place] [phone] Jul, [facility] [address] [place] [id number] [address] [place] [id number] Jul, Neuropathy G62.9 and Anxiety F41.9 [facility] [address] [place] [id number] [address] [place] [phone] Jul, [place] [id number] [id number] [address] [place] [phone] Jul, [facility] [address] [facility] [id number] [address] [place] [phone] Jul, [facility] [address] [facility] [id number] [address] [place] [phone] Jul, Polyneuropathy G62.9 [facility] [address] [facility] [id number] [address] [place] [phone] Jul, [facility] [address] [facility] [id number] [address] [place] [phone] Jun, [facility] [address] [facility] [id number] [address] [place] [phone] Jun, [facility] [address] [facility] [id number] [address] [place] [phone] Jun, [facility] [id number] [place] [address] Jun, Encounter for dental examina tion Z01.20 [facility] [address] [facility] [id number] [address] [place] [address] Jun, Polyneuropathy G62.9 and Anx iety F41.9 [facility] [address] [facility] [id number] [address] [place] [address] Jun, [facility] [address] [id number] [address] [place] [address] May, Dental examination Z01.20 [facility] [address] [facility] [id number] [address] [place] [address] May, Polyneuropathy G62.9 [facility] [address] [facility] [id number] [address] [place] [address] Apr, Polyneuropathy G62.9 [facility] [address] [facility] [id number] [address] [place] [address] Apr, Polyneuropathy G62.9 [facility] [address] [facility] [id number] [address] [place] [address] Apr, Hypertension, benign I10 ; P olyneuropathy G62.9 and Anxiety F41.9 [facility] [address] [id number] [address] [place] [address] Apr, Primary insomnia F51.01 and Polyneuropathy G62.9 [facility] [address] [facility] [id number] [address] [place] [address] Apr, Primary insomnia F51.01 and Polyneuropathy G62.9 [facility] [address] [facility] [id number] [address] [place] [address] Mar, Primary insomnia F51.01 [facility] [address] [facility] [id number] [address] [place] [phone] Mar, [facility] [address] [facility] [id number] [address] [place] [address] Mar, Polyneuropathy G62.9 [facility] [address] [facility] [id number] [address] [place] [address] Feb, Primary insomnia F51.01 [facility] [address] [facility] [id number] [address] [place] [phone] Feb, [facility] [address] [facility] [id number] [address] [place] [address] Feb, [facility] [address] [facility] [id number] [address] [place] [phone] Feb, Polyneuropathy G62.9 [facility] [address] [facility] [id number] [address] [place] [address] Feb, Primary insomnia F51.01 [facility] [address] [facility] [id number] [address] [place] [phone] Jan, [facility] [address] [facility] [id number] [address] [place] [id number] Jan, [facility] [address] [id number] [address] [place] [address] Dec, [facility] [address] [id number] [address] [place] [address] Dec, Primary insomnia F51.01 [facility] [address] [id number] [address] [place] [address] Dec, Primary insomnia F51.01 [facility] [address] [id number] [address] [place] [address] Dec, [facility] [address] [id number] [address] [place] [address] Dec, [facility] [address] [id number] [address] [place] [address] Dec, [facility] [address] [id number] [address] [place] [phone] Dec, [facility] [address] [id number] [address] [place] [address] November, Primary insomnia F51.01 and Polyneuropathy G62.9 [facility] [address] [id number] [address] [place] [address] November, [facility] [address] [id number] [address] [place] [address] November, Abdominal pain, left lower q uadrant R10.32 [facility] [address] [id number] [address] [place] [address] November, [facility] [address] [id number] [address] [place] [address] Oct, [facility] [address] [id number] [address] [place] [address] Oct, Abdominal pain, left lower q uadrant R10.32 ; 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 and Neuropathy G62.9 [facility] [address] [id number] [address] [place] [address] Oct, [facility] [address] [id number] [address] [place] [address], [place] [address] Sep, [facility] [id number] [facility] [place] [id number] Sep, [facility] [place] [address] [id number] [address] [place] [address] Sep, [facility] [place] [address] [id number] [address] [place] [address] Aug, [facility] [place] [address] [id number] [address] [place] [address], [place] [address] Aug, [facility] [place] [address] [facility] [id number] [address] [place] [address] Aug, Abdominal pain, left lower q uadrant R10.32 ; Neuropathy G62.9 and Anxiety F41.9 [facility] [address] [facility] [address] Jul, [facility] [place] [address] [id number] [address] [place] [phone] Jul, [facility] [address] [facility] [id number] [address] [place] [address] Jul, [facility] [place] [address] [id number] [address] [place] [phone] Jul, [facility] [place] [address] [id number] [address] [place] [address] Jul, [facility] [place] [address] [id number] [address] [place] [phone] Jun, [facility] [place] [address] [id number] [address] [place] [address] May, [facility] [place] [address] [id number] [address] [place] [address] May, [facility] [address] [id number] [address] [place] [address] Apr, [facility] [address] [id number] [address] [place] [address] Apr, Muscle spasms of both lower extremities M62.838 and Cellulitis, unspecified cellulitis site L03.90 [facility] [address] [id number] [address] [place] [address] 07 Apr, 2016 [facility] [address] [id number] [address] [place] [phone] 23 Mar, 2016 Generalized abdominal pain R 10.84 [facility] [address] [id number] [address] [place] [id number] 20 Mar, 2016 [facility] [address] [id number] [address] [place] [phone] 14 Mar, 2016 [facility] [address] [id number] [address] [place] [address] 14 Mar, 2016 [facility] [address] [id number] [address] [place] [address] 13 Mar, 2016 [facility] [address] [id number] [address] [place] [phone] 12 Mar, 2016 [facility] [address] [id number] [address] [place] [phone] 09 Mar, 2016 [facility] [address] [id number] [address] [place] [address] 06 Mar, 2016 [facility] [address] [id number] [address] [place] [address] 17 Feb, 2016 Other specified diseases of anus and rectum K62.89 [facility] [address] [id number] [address] [place] [id number] 15 Feb, 2016 [facility] [address] [id number] [address] [place] [address] 09 Feb, 2016 Dizziness R42 [facility] [address] [id number] [address] [place] [address], [place] [address] Feb, [facility] [address] [id number] [address] [place] [address] Jan, Polyneuropathy G62.9 [facility] [address] [id number] [address] [place] [address], [place] [address] Jan, Other specified diseases of anus and rectum K62.89 [facility] [address] [id number] [address] [place] [address], [place] [address] Jan, [facility] [address] [id number] [address] [place] [address], [place] [address] Jan, [facility] [address] [id number] [address] [place] [phone] Jan, [facility] [address] [id number] [address] [place] [address] Jan, Dizziness R42 [facility] [address] [id number] [address] [place] [phone] Dec, [facility] [address] [id number] [address] [place] [address], [place] [address] Dec, [facility] [address] [id number] [address] [place] [phone] Dec, [facility] [address] [id number] [address] [place] [phone] Dec, Dizziness R42 [facility] [address] [id number] [address] [place] [id number] November, [facility] [address] [id number] [address] [place] [id number] Oct, [facility] [address] [id number] [address] [place] [id number] Oct, [facility] [address] [id number] [address] [place] [id number] Oct, [facility] [address] [facility] [id number] [address] [place] [id number] Oct, [facility] [address] [place] [place] [id number] [address] [place] [id number] 30 Sep, 2015 [facility] [address] [facility] [id number] [address] [place] [id number] Sep, Primary insomnia F51.01 [facility] [address] [facility] [id number] [address] [place] [id number] Sep, Primary insomnia F51.01 [facility] [address] [facility] [id number] [address] [place] [id number] Sep, [facility] [address] [id number] [address] [place] [id number] Aug, [facility] [address] [id number] Aug, [facility] [address] [id number] Aug, Primary insomnia F51.01 ; Mo od disorder F39 ; Nausea and vomiting, unspecified intactability, vomiting of unspecified type R11.2 and Diarrhea R19.7 [facility] [address] [place] [id number] [address] [place] [id number] Aug, [facility] [address] [id number] [address] [place] [id number] Aug, Folliculitis L73.9 [facility] [address] [place] [place] [id number] [address] [place] [phone] Aug, [facility] [address] [id number] [place] [id number] Aug, [facility] [address] [place] [id number] [address] [place] [id number] Jul, Folliculitis L73.9 [facility] [address] [place] [id number] [place] [address] [place] [id number] Jul, [facility] [address] [id number] [address] [place] [id number] Jun, Folliculitis L73.9 [facility] [address] [id number] [address] [place] [id number] Jun, [facility] [address] [facility] [id number] [address] [place] [id number] May, Polyneuropathy G62.9 [facility] [address] [id number] [address] [place] [id number] May, Other specified diseases of anus and rectum K62.89 [facility] [address] [facility] [id number] [address] [place] [address] May, [facility] [address] [facility] [id number] [address] [place] [address] May, Primary insomnia F51.01 [facility] [address] [facility] [id number] [address] [place] [address] May, [facility] [address] [facility] [id number] [address] [place] [address] May, [facility] [address] [facility] [id number] [address] [place] [address] Apr, Other specified diseases of anus and rectum K62.89 ; Chronic fatigue R53.82 ; Urinary tract infection, site not specified N39.0 and Enterococcus as the cause of diseases classified elsewhere B95.2 [facility] [address] [facility] [id number] [address] [place] [address] Apr, [facility] [address] [facility] [id number] [address] [place] [address] Apr, [facility] [address] [facility] [id number] [address] [place] [address] 14 Apr, 2015 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 [facility] [address] [id number] [address] [place] [id number] 05 Apr, 2015 [facility] [address] [id number] [address] [place] [phone] 26 Mar, 2015 [facility] [address] [id number] [address] [place] [phone] 23 Mar, 2014 [facility] [address] [id number] [address] [place] [id number] 17 Mar, 2014 [facility] [address] [id number] [address] [place] [phone] 14 Mar, 2015 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 [facility] [address] [id number] [address] [place] [phone] 12 Mar, 2015 [facility] [address] [id number] [address] [place] [id number] 11 Mar, 2015 [facility] [address] [id number] [address] [place] [id number] 11 Mar, 2015 [facility] [address] [id number] [address] [place] [id number] 10 Mar, 2015 [facility] [address] [id number] [address] [place] [phone] 28 Feb, 2015 [facility] [address] [id number] [address] [place] [phone] Feb, [facility] [address] [id number] [address] [place] [phone] Feb, [facility] [address] [id number] [address] [place] [id number] 30 Jan, 2015 [facility] [address] [id number] [address] [place] [address] Jan, Nausea 787.02 and Neuropathy 355.9 [facility] [address] [id number] [address] [place] [phone] Jan, [facility] [address] [id number] [address] [place] [id number] Jan, [facility] [address] [id number] [address] [place] [phone] Jan, [facility] [address] [id number] [address] [place] [id number] 10 Jan, 2015 Dental examination V72.2 [facility] [address] [id number] [address] [place] [phone] Jan, [facility] [address] [id number] [address] [place] [phone] Dec, [facility] [address] [id number] [address] [place] [phone] Dec, [facility] [address] [id number] [address] [place] [phone] Dec, Neuropathy 355.9 [facility] [address] [id number] [address] [place] [address], [place] [address] November, [facility] [address] [id number] [address] [place] [phone] November, [facility] [address] [id number] [address] [place] [address], [place] [address] November, [facility] [address] [id number] [address] [place] [phone] Oct, [facility] [address] [id number] [address] [place] [phone] Oct, [facility] [address] [id number] [address] [place] [phone] Sep, [facility] [address] [id number] [address] [place] [phone] Sep, [facility] [address] [id number] [address] [place] [phone] Sep, [facility] [address] [id number] [address] [place] [phone] Sep, [facility] [address] [id number] [address] [place] [address], [place] [address] Sep, [facility] [address] [id number] [address] [place] [address], [place] [address] Sep, [facility] [address] [id number] [address] [place] [address], [place] [address] Sep, [facility] [address] [id number] [address] [place] [address], [place] [address] Sep, [facility] [address] [id number] [address] [place] [address], [place] [address] Aug, [facility] [address] [id number] [address] [place] [address], [place] [address] Aug, 2014 [facility] [address] [id number] [address] [place] [address], [place] [address] Aug, [facility] [address] [id number] [address] [place] [address], [place] [address] Aug, [facility] [address] [id number] [address] [place] [address], [place] [address] Aug, [facility] [address] [id number] [address] [place] [address], [place] [address] Aug, [facility] [address] [id number] [address] [place] [address], [place] [address] Aug, [facility] [address] [id number] [address] [place] [address], [place] [address] Aug, [facility] [address] [id number] [address] [place] [address], [place] [address] Jul, [facility] [address] [id number] [address] [place] [address], [place] [address] Jul, [facility] [address] [id number] [address] [place] [address], [place] [address] Jun, [facility] [address] [id number] [address] [place] [address], [place] [address] Jun, [facility] [address] [id number] [address] [place] [address], [place] [address] Jun, [facility] [address] [id number] [address] [place] [address], [place] [address] Jun, [facility] [address] [id number] [address] [place] [address], [place] [address] Jun, [facility] [address] [id number] [address] [place] [address], [place] [address] Jun, [facility] [address] [id number] [address] [place] [address], [place] [address] Jun, [facility] [address] [id number] [address] [place] [address], [place] [address] Jun, [facility] [address] [id number] [address] [place] [address], [place] [address] Jun, [facility] [address] [id number] [address] [place] [address], [place] [address] Jun, [facility] [address] [id number] [address] [place] [address], [place] [address] Jun, [facility] [address] [id number] [address] [place] [address], [place] [address] May, [facility] [address] [id number] [address] [place] [address], [place] [address] May, [facility] [address] [id number] [address] [place] [address], [place] [address] May, [facility] [address] [id number] [address] [place] [address], [place] [address] May, [facility] [address] [id number] [address] [place] [address], [place] [address] May, [facility] [address] [id number] [address] [place] [address], [place] [address] May, [facility] [address] [id number] [address] [place] [address], [place] [address] May, [facility] [address] [id number] [address] [place] [address], [place] [address] May, [facility] [address] [id number] [address] [place] [address], [place] [address] May, [facility] [address] [id number] [address] [place] [address], [place] [address] Apr, [facility] [address] [id number] [address] [place] [address], [place] [address] Apr, [facility] [address] [id number] [address] [place] [address], [place] [address] Apr, [facility] [address] [id number] [address] [place] [address], [place] [address] Apr, [facility] [address] [id number] [address] [place] [address], [place] [address] Apr, [facility] [address] [id number] [address] [place] [address], [place] [address] Mar, [facility] [address] [id number] [address] [place] [address], [place] [address] Mar, [facility] [address] [id number] [address] [place] [address], [place] [address] Feb, [facility] [address] [id number] [address] [place] [address], [place] [address] Feb, [facility] [address] [id number] [address] [place] [address], [place] [address] Feb, [facility] [address] [id number] [address] [place] [address], [place] [address] Feb, [facility] [address] [id number] [address] [place] [address], [place] [address] Feb, [facility] [address] [id number] [address] [place] [address], [place] [address] Feb, [facility] [address] [id number] [facility] [place] [address] Jan, [facility] [address] [id number] [facility] [place] [address] Jan, [facility] [address] [id number] [facility] [place] [address] Jan, [facility] [address] [id number] [facility] [place] [address] Jan, [facility] [address] [id number] [address] [place] [address], [place] [address] Jan, [facility] [address] [id number] [address] [place] [address], [place] [address] Jan, [facility] [address] [id number] [address] [place] [address], [place] [address] Jan, [facility] [address] [id number] [address] [place] [address], [place] [address] Jan, [facility] [address] [id number] [address] [place] [address], [place] [address] Jan, [facility] [address] [id number] [address] [place] [address], [place] [address] Jan, [facility] [address] [id number] [address] [place] [address], [place] [address] Jan, [facility] [address] [id number] [address] [place] [address], [place] [address] Dec, [facility] [address] [id number] [address] [place] [address], [place] [address] Dec, [facility] [address] [id number] [address] [place] [address], [place] [address] Dec, [facility] [address] [id number] [address] [place] [address], [place] [address] Dec, [facility] [address] [id number] [address] [place] [address], [place] [address] Dec, [facility] [address] [id number] [address] [place] [address], [place] [address] Dec, [facility] [address] [id number] [address] [place] [address], [place] [address] November, [facility] [address] [id number] [address] [place] [address], [place] [address] November, [facility] [address] [id number] [address] [place] [address], [place] [address] November, [facility] [address] [id number] [address] [place] [address], [place] [address] November, [facility] [address] [id number] [address] [place] [address], [place] [address] November, [facility] [address] [id number] [address] [place] [address], [place] [address] November, [facility] [address] [id number] [address] [place] [address], [place] [address] Oct, [facility] [address] [id number] [address] [place] [address], [place] [address] Oct, [facility] [address] [id number] [address] [place] [address], [place] [address] Oct, [facility] [address] [id number] [address] [place] [address], [place] [address] Oct, [facility] [address] [id number] [address] [place] [address], [place] [address] Sep, [facility] [address] [id number] [address] [place] [address], [place] [address] 17 Sep, 2013 [facility] [address] [id number] [address] [place] [address], [place] [address] 13 Sep, 2013 [facility] [address] [id number] [address] [place] [address], [place] [address] Sep, [facility] [address] [id number] [address] [place] [address], [place] [address] Sep, [facility] [address] [id number] [address] [place] [address], [place] [address] Aug, [facility] [address] [id number] [address] [place] [address], [place] [address] Aug, [facility] [address] [id number] [address] [place] [address], [place] [address] Aug, [facility] [address] [id number] [address] [place] [address], [place] [address] Aug, [facility] [address] [id number] [address] [place] [address], [place] [address] Aug, [facility] [address] [place] [id number] May, [facility] [address] [id number] [address] [place] [address], [place] [address] May, [facility] [address] [id number] [address] [place] [address], [place] [address] May, [facility] [address] [id number] [address] [place] [address], [place] [address] May, [facility] [address] [id number] [address] [place] [address], [place] [address] May, [facility] [address] [id number] [address] [place] [address], [place] [address] Apr, [facility] [address] [id number] [address] [place] [address], [place] [address] Apr, [facility] [address] [id number] [address] [place] [address], [place] [address] Apr, [facility] [address] [id number] [address] [place] [address], [place] [address] Apr, [facility] [address] [id number] [address] [place] [address], [place] [address] Apr, [facility] [address] [id number] [address] [place] [address], [place] [address] Apr, [facility] [address] [id number] [address] [place] [address], [place] [address] Apr, [facility] [address] [id number] [address] [place] [address], [place] [address] Mar, [facility] [address] [id number] [address] [place] [address], [place] [address] Mar, [facility] [address] [id number] [address] [place] [address], [place] [address] 24 Mar, 2013 [facility] [address] [id number] [address] [place] [address], [place] [address] Mar, [facility] [address] [id number] [address] [place] [address], [place] [address] Mar, [facility] [address] [id number] [address] [place] [address], [place] [address] Mar, [facility] [address] [id number] [address] [place] [address], [place] [address] Feb, [facility] [address] [id number] [address] [place] [address], [place] [address] Feb, [facility] [address] [id number] [address] [place] [address], [place] [address] Feb, [facility] [address] [id number] [address] [place] [address], [place] [address] Feb, [facility] [address] [id number] [address] [place] [address], [place] [address] Feb, [facility] [address] [id number] [address] [place] [address], [place] [address] Feb, [facility] [address] [id number] [address] [place] [address], [place] [address] Jan, [facility] [address] [id number] [address] [place] [address], [place] [address] Dec, [facility] [address] [id number] [address] [place] [address], [place] [address] Dec, [facility] [address] [id number] [address] [place] [address], [place] [address] Dec, [facility] [address] [id number] [address] [place] [address], [place] [address] Dec, [facility] [address] [id number] [address] [place] [address], [place] [address] Dec, [facility] [address] [id number] [address] [place] [address], [place] [address] Dec, [facility] [address] [id number] [address] [place] [address], [place] [address] Dec, [facility] [address] [id number] [address] [place] [address], [place] [address] Dec, [facility] [address] [id number] [address] [place] [address], [place] [address] Dec, [facility] [address] [id number] [address] [place] [address], [place] [address] November, [facility] [address] [id number] [address] [place] [address], [place] [address] November, [facility] [address] [id number] [address] [place] [address], [place] [address] Oct, [facility] [address] [id number] [address] [place] [address], [place] [address] Sep, [facility] [address] [id number] [address] [place] [address], [place] [address] Sep, [facility] [address] [id number] [address] [place] [address], [place] [address] Sep, [facility] [address] [id number] [address] [place] [address] Sep, [facility] [address] [facility] [id number] [address] [place] [phone] Aug, [facility] [address] [facility] [id number] [address] [place] [id number] Aug, [facility] [address] [facility] [id number] [address] [place] [phone] Jul, [facility] [address] [facility] [id number] [address] [place] [phone] Jul, [facility] [address] [facility] [id number] [address] [place] [phone] Jul, [facility] [address] [facility] [id number] [address] [place] [id number] Sep, [facility] [address] [facility] [id number] [address] [place] [phone] Sep, [facility] [address] [facility] [id number] [address] [place] [id number] Sep, IMMUNIZATIONS No Known Immunizations SOCIAL HISTORY [...] 09/21/16 Hospitalization History Large bowel obstruction, Dehydration -[facility] 01/01/17 Hospitalization History [facility]- UTI/Sepsis 01/18/2018 Hospitalization History [facility] - infection 4 days 05/2018
--- OUTSIDE RECORDS SUMMARY | 2020-01-14 23:04 | XMS REPORT ---
Author Author Melvin BENTLEY Organization [facility] Address [address] [place] [address] Care Team Providers Care Maintenance And Operations Supervisor Name Role Phone LINDA BENTLEY Unavailable PROBLEMS Type Condition ICD9-CM Code NYM55-VE Code Onset Dates Condition S tatus SNOMED Code Problem Incontinence of feces, unspecified fecal incontinence type R15.9 Active 88571716 Problem Primary insomnia F51.01 Active 193 750567 Problem Hydronephrosis with ureteral stricture, not else where classified N13.1 Active 75811630 Problem Chronic fatigue, unspecified R53.82 A ctive 143631326 Problem Hypertension, benign I10 Active 93477492 Problem Mood disorder F39 Active 210429 05 Problem Neuropathy G62.9 Active 327557167 Problem Chronic pain syndrome G89.4 Active 969619776 Problem Abdominal pain, left lower quadrant R10.32 Active 363436495 Problem 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 [id number] [address] [place] [phone] Apr, [facility] [address] [facility] [id number] [address] [place] [id number] Feb, Primary insomnia F51.01 ; Ne uropathy G62.9 and Encounter for Medicare annual wellness exam Z00.00 [facility] [address] [facility] [id number] [address] [place] [phone] Feb, Neuropathy G62.9 and Encount er for Medicare annual wellness exam Z00.00 [facility] [address] [id number] [address] [place] [id number] Feb, Primary insomnia F51.01 and High risk medication use Z79.899 [facility] [address] [id number] [address] [place] [phone] Jan, [facility] [address] [id number] [address] [place] [address] Jan, Neuropathy G62.9 [facility] [address] [id number] [address] [place] [phone] Dec, [facility] [address] [id number] [address] [place] [phone] Dec, Encounter for Medicare annua l wellness exam Z00.00 and Neuropathy G62.9 [facility] [address] [id number] [address] [place] [phone] November, [facility] [address] [id number] [address] [place] [address] November, Encounter for Medicare annua l wellness exam Z00.00 ; 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 ; Mood disorder F39 ; Chronic fatigue, unspecified R53.82 and Neuropathy G62.9 [facility] [address] [id number] [address] [place] [address] November, Neuropathy G62.9 [facility] [address] [id number] [address] [place] [id number] Oct, Neuropathy G62.9 [facility] [address] [id number] [address] [place] [phone] Oct, Hypertension, benign I10 and Anxiety F41.9 [facility] [address] [id number] [address] [place] [id number] Oct, [facility] [address] [id number] [address] [place] [id number] Oct, [facility] [address] [id number] [address] [place] [phone] Oct, [facility] [address] [id number] [address] [place] [phone] Oct, Neuropathy G62.9 [facility] [address] [id number] [address] [place] [phone] Sep, [facility] [address] [id number] [address] [place] [id number] Sep, Neuropathy G62.9 [facility] [address] [id number] [address] [place] [address] Sep, [facility] [address] [id number] [address] [place] [address] Sep, H/O malignant carcinoid tumo r of 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 and Primary insomnia F51.01 [facility] [address] [id number] [address] [place] [address] Aug, [facility] [address] [id number] [address] [place] [address] Aug, Neuropathy G62.9 [facility] [address] [id number] [address] [place] [phone] Aug, [facility] [address] [id number] [address] [place] [phone] Jul, Non-recurrent acute suppurat francine otitis media of left ear without spontaneous rupture of tympanic membrane H66.002 [facility] [address] [id number] [address] [place] [address] Jul, Neuropathy G62.9 [facility] [address] [id number] [address] [place] [phone] Jun, [facility] [address] [id number] [address] [place] [phone] Jun, [facility] [address] [place] [id number] [place] [address] Jun, Neuropathy G62.9 [facility] [address] [id number] Jun, [facility] [address] [place] [id number] [place] [address] Jun, [facility] [address] [address] Jun, Lumbar neuritis M54.16 [facility] [address] [place] [id number] [place] [address] May, Neuropathy G62.9 [facility] [address] [address] May, [facility] [address] [address] May, Neuropathy G62.9 and Hyperte nsion, benign I10 [facility] [address] [address] Apr, Polyneuropathy G62.9 and Hyp ertension, benign I10 [facility] [address] [address] 17 Mar, 2018 Chronic pain syndrome G89.4 and Hypertension, benign I10 [facility] [address] [address] Mar, Polyneuropathy G62.9 and Hyp ertension, benign I10 [facility] [address] [address] Feb, [facility] [address] [address] Feb, Hypertension, benign I10 [facility] [address] [place] [id number] [place] [phone] Feb, Hypertension, benign I10 ; P olyneuropathy G62.9 and Primary insomnia F51.01 [facility] [address] [id number] [address] [place] [id number] 17 Jan, 2018 Hypertension, benign I10 and Polyneuropathy G62.9 [facility] [address] [id number] [address] [place] [id number] 16 Jan, 2018 Hypertension, benign I10 and Neuropathy G62.9 [facility] [address] [id number] [address] [place] [address] Jan, [facility] [address] [id number] [address] [place] [address] Dec, Polyneuropathy G62.9 [facility] [address] [id number] [address] [place] [address] Dec, Mood disorder F39 [facility] [address] [id number] [address] [place] [id number] November, Polyneuropathy G62.9 [facility] [address] [facility] [id number] [address] [place] [address] November, Medicare annual wellness vis it, initial Z00.00 [facility] [address] [id number] [address] [place] [phone] November, Mood disorder F39 [facility] [address] [facility] [id number] [address] [place] [phone] Oct, Polyneuropathy G62.9 [facility] [address] [facility] [id number] [address] [place] [phone] Oct, [facility] [address] [facility] [id number] [address] [place] [address] Oct, [facility] [address] [facility] [id number] [address] [place] [phone] Oct, Mood disorder F39 ; Attentio n to urostomy Z43.6 ; Chronic pain syndrome G89.4 and Polyneuropathy G62.9 [facility] [address] [id number] [address] [place] [address] Sep, Polyneuropathy G62.9 [facility] [address] [id number] [address] [place] [phone] Sep, [facility] [address] [facility] [id number] [address] [place] [address] Sep, Polyneuropathy G62.9 [facility] [address] [facility] [id number] [address] [place] [address] Aug, Polyneuropathy G62.9 [facility] [address] [facility] [id number] [address] [place] [address] Aug, Malignant neoplasm of colon, unspecified part of colon C18.9 and Polyneuropathy G62.9 [facility] [address] [facility] [id number] [address] [place] [address] Aug, Neuropathy G62.9 and Polyneu ropathy G62.9 [facility] [address] [facility] [id number] [address] [place] [phone] Jul, Encounter for drug screening Z02.83 [facility] [address] [facility] [id number] [address] [place] [phone] Jul, Polyneuropathy G62.9 [facility] [address] [facility] [id number] [address] [place] [phone] Jul, [facility] [address] [id number] [address] [place] [address] Jul, Neuropathy G62.9 and Anxiety F41.9 [facility] [address] [facility] [id number] [address] [place] [phone] Jul, [facility] [address] [facility] [id number] [address] [place] [address] Jul, [facility] [address] [facility] [id number] [address] [place] [address] Jul, [facility] [address] [address] Jul, Polyneuropathy G62.9 [facility] [address] [address] Jul, [facility] [address] [place] [id number] [place] [address] Jun, [facility] [address] [address] Jun, [facility] [address] [address] Jun, [facility] [address] [place] [address] [place] [address] 07 Jun, 2017 Encounter for dental examina tion Z01.20 [place] [id number] [address] Jun, Polyneuropathy G62.9 and Anx iety F41.9 [facility] [address] [address] Jun, [facility] [address] [place] [id number] [place] [address] May, Dental examination Z01.20 [facility] [address] [address] May, Polyneuropathy G62.9 [facility] [address] [place] [id number] [address] [place] [address] Apr, Polyneuropathy G62.9 [facility] [address] [place] [id number] [place] [address] Apr, Polyneuropathy G62.9 [facility] [address] [place] [id number] [place] [phone] Apr, Hypertension, benign I10 ; P olyneuropathy G62.9 and Anxiety F41.9 [facility] [address] [place] [id number] [place] [address] Apr, Primary insomnia F51.01 and Polyneuropathy G62.9 [facility] [address] [id number] [address] [place] [address] Apr, Primary insomnia F51.01 and Polyneuropathy G62.9 [facility] [address] [id number] [address] [place] [address] Mar, Primary insomnia F51.01 [facility] [address] [id number] [address] [place] [address], [place] [address] Mar, [facility] [address] [id number] [address] [place] [phone] Mar, Polyneuropathy G62.9 [facility] [address] [facility] [id number] [address] [place] [address] Feb, Primary insomnia F51.01 [facility] [address] [id number] [address] [place] [id number] Feb, [facility] [address] [id number] [address] [place] [id number] Feb, [facility] [address] [facility] [id number] [address] [place] [address] Feb, Polyneuropathy G62.9 [facility] [address] [id number] [address] [place] [address] Feb, Primary insomnia F51.01 [facility] [address] [id number] [address] [place] [address] Jan, [facility] [address] [id number] [address] [place] [address] Jan, [facility] [address] [id number] [address] [place] [address] Dec, [facility] [address] [facility] [id number] [address] [place] [address] Dec, Primary insomnia F51.01 [facility] [address] [facility] [id number] [address] [place] [address] Dec, Primary insomnia F51.01 [facility] [address] [id number] [address] [place] [address] Dec, [facility] [address] [facility] [id number] [address] [place] [address] Dec, [facility] [address] [id number] [address] [place] [address] Dec, [facility] [address] [facility] [id number] [address] [place] [address] Dec, [facility] [address] [facility] [id number] [address] [place] [address] November, Primary insomnia F51.01 and Polyneuropathy G62.9 [facility] [address] [facility] [id number] [address] [place] [address] November, [facility] [address] [facility] [id number] [address] [place] [address] November, Abdominal pain, left lower q uadrant R10.32 [facility] [address] [facility] [id number] [address] [place] [address] November, [facility] [address] [facility] [id number] [address] [place] [address] Oct, [facility] [address] [facility] [id number] [address] [place] [address] Oct, Abdominal pain, left lower q uadrant R10.32 ; 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 and Neuropathy G62.9 [facility] [address] [facility] [id number] [address] [place] [phone] Oct, [facility] [address] [facility] [id number] [address] [place] [address] Sep, [facility] [id number] [place] [id number] Sep, [facility] [address] [id number] [address] [place] [address] Sep, [facility] [address] [id number] [address] [place] [phone] Aug, [facility] [address] [id number] [address] [place] [address] Aug, [facility] [address] [id number] [address] [place] [phone] Aug, Abdominal pain, left lower q uadrant R10.32 ; Neuropathy G62.9 and Anxiety F41.9 [facility] [address] [place] [address] Jul, [facility] [address] [facility] [id number] [address] [place] [id number] Jul, [facility] [address] [facility] [id number] [address] [place] [address] Jul, [facility] [address] [id number] [address] [place] [address] Jul, [facility] [address] [facility] [id number] [address] [place] [address] Jul, [facility] [address] [id number] [address] [place] [address] Jun, [facility] [address] [id number] [address] [place] [address] May, [facility] [address] [id number] [address] [place] [id number] May, [facility] [address] [id number] [address] [place] [address] Apr, [facility] [address] [facility] [id number] [address] [place] [address] Apr, Muscle spasms of both lower extremities M62.838 and Cellulitis, unspecified cellulitis site L03.90 [facility] [address] [id number] [address] [place] [id number] 07 Apr, 2016 [facility] [address] [id number] [address] [place] [address] 23 Mar, 2016 Generalized abdominal pain R 10.84 [facility] [address] [id number] [address] [place] [id number] 20 Mar, 2016 [facility] [address] [id number] [address] [place] [id number] 14 Mar, 2016 [facility] [address] [id number] [address] [place] [id number] 14 Mar, 2016 [facility] [address] [id number] [address] [place] [id number] 13 Mar, 2016 [facility] [address] [id number] [address] [place] [id number] 12 Mar, 2016 [facility] [address] [id number] [address] [place] [id number] 09 Mar, 2016 [facility] [address] [id number] [address] [place] [id number] 06 Mar, 2016 [facility] [address] [id number] [address] [place] [id number] 17 Feb, 2016 Other specified diseases of anus and rectum K62.89 [facility] [address] [id number] [address] [place] [id number] 15 Feb, 2016 [facility] [address] [id number] [address] [place] [id number] 09 Feb, 2016 Dizziness R42 [facility] [address] [id number] [address] [place] [id number] 08 Feb, 2016 [facility] [address] [id number] [address] [place] [phone] Jan, Polyneuropathy G62.9 [facility] [address] [id number] [address] [place] [address], [place] [address] Jan, Other specified diseases of anus and rectum K62.89 [facility] [address] [id number] [address] [place] [address], [place] [address] Jan, [facility] [address] [id number] [address] [place] [address], [place] [address] 16 Jan, 2016 [facility] [address] [id number] [address] [place] [place] [address], [place] [address] Jan, [facility] [address] [id number] [address] [place] [place] [address], [place] [address] Jan, Dizziness R42 [facility] [address] [id number] [address] [place] [place] [address], [place] [address] Dec, [facility] [address] [id number] [address] [place] [place] [address], [place] [address] Dec, [facility] [address] [id number] [address] [place] [place] [address], [place] [address] Dec, [facility] [address] [id number] [address] [place] [place] [address], [place] [address] Dec, Dizziness R42 [facility] [address] [id number] [address] [place] [place] [address], [place] [address] November, [facility] [address] [id number] [address] [place] [place] [address], [place] [address] Oct, [facility] [address] [id number] [address] [place] [id number] Oct, [facility] [address] [id number] [address] [place] [address], [place] [address] Oct, [facility] [address] [id number] [address] [place] [place] [address], [place] [address] Oct, [facility] [address] [id number] [address] [place] [place] [address], [place] [address] Sep, [facility] [address] [address] Sep, Primary insomnia F51.01 [facility] [address] [id number] Sep, Primary insomnia F51.01 [facility] [address] [id number] Sep, [facility] [address] [id number] Aug, [facility] [address] [id number] Aug, [facility] [address] [address] Aug, Primary insomnia F51.01 ; Mo od disorder F39 ; Nausea and vomiting, unspecified intactability, vomiting of unspecified type R11.2 and Diarrhea R19.7 [facility] [address] [id number] Aug, [facility] [address] [address] Aug, Folliculitis L73.9 [facility] [address] [address] Aug, [facility] [address] [address] Aug, [facility] [address] [address] Jul, Folliculitis L73.9 [facility] [address] [id number] Jul, [facility] [address] [address] Jun, Folliculitis L73.9 [facility] [address] [address] Jun, [facility] [address] [id number] [address] [place] [id number] May, Polyneuropathy G62.9 [facility] [address] [id number] [address] [place] [id number] May, Other specified diseases of anus and rectum K62.89 [facility] [address] [id number] [address] [place] [address] May, [facility] [address] [id number] [address] [place] [address] May, Primary insomnia F51.01 [facility] [address] [facility] [id number] [address] [place] [id number] May, [facility] [address] [facility] [id number] [address] [place] [phone] May, [facility] [address] [facility] [id number] [address] [place] [id number] Apr, Other specified diseases of anus and rectum K62.89 ; Chronic fatigue R53.82 ; Urinary tract infection, site not specified N39.0 and Enterococcus as the cause of diseases classified elsewhere B95.2 [facility] [address] [facility] [id number] [address] [place] [id number] 16 Apr, 2015 [facility] [address] [facility] [id number] [address] [place] [id number] Apr, [facility] [address] [facility] [id number] [address] [place] [phone] Apr, 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 [facility] [address] [facility] [id number] [address] [place] [id number] Apr, [facility] [address] [facility] [id number] [address] [place] [phone] Mar, [facility] [address] [facility] [id number] [address] [place] [id number] Mar, [facility] [address] [id number] [address] [place] [id number] 17 Mar, 2015 [facility] [address] [id number] [address] [place] [phone] 14 Mar, 2015 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 [facility] [address] [id number] [address] [place] [phone] 12 Mar, 2015 [facility] [address] [id number] [address] [place] [id number] 11 Mar, 2015 [facility] [address] [id number] [address] [place] [phone] 11 Mar, 2015 [facility] [address] [id number] [address] [place] [id number] 10 Mar, 2015 [facility] [address] [id number] [address] [place] [id number] Feb, [facility] [address] [id number] [address] [place] [id number] Feb, [facility] [address] [id number] [address] [place] [id number] Feb, [facility] [address] [id number] [address] [place] [id number] 30 Jan, 2015 [facility] [address] [id number] [address] [place] [phone] Jan, Nausea 787.02 and Neuropathy 355.9 [facility] [address] [id number] [address] [place] [id number] Jan, [facility] [address] [id number] [address] [place] [id number] Jan, [facility] [address] [id number] [address] [place] [phone] 16 Jan, 2015 [facility] [address] [id number] [address] [place] [id number] Jan, Dental examination V72.2 [facility] [address] [id number] [address] [place] [address], [place] [address] Jan, [facility] [address] [id number] [address] [place] [phone] Dec, [facility] [address] [id number] [address] [place] [id number] Dec, [facility] [address] [id number] [address] [place] [id number] Dec, Neuropathy 355.9 [facility] [address] [id number] [address] [place] [address], [place] [address] November, [facility] [address] [id number] [address] [place] [id number] November, [facility] [address] [id number] [address] [place] [id number] November, [facility] [address] [id number] [address] [place] [id number] Oct, [facility] [address] [id number] [address] [place] [id number] Oct, [facility] [address] [id number] [address] [place] [phone] Sep, [facility] [address] [id number] [address] [place] [phone] Sep, [facility] [address] [id number] [address] [place] [id number] Sep, [facility] [address] [id number] [address] [place] [id number] Sep, [facility] [address] [id number] [address] [place] [phone] Sep, [facility] [address] [id number] [address] [place] [phone] Sep, [facility] [address] [id number] [address] [place] [address], [place] [address] Sep, [facility] [address] [id number] [address] [place] [address], [place] [address] Sep, [facility] [address] [id number] [address] [place] [place] [address], [place] [address] Aug, 2014 [facility] [address] [id number] [address] [place] [place] [address], [place] [address] Aug, 2014 [facility] [address] [id number] [address] [place] [address], [place] [address] Aug, 2014 [facility] [address] [id number] [address] [place] [place] [address], [place] [address] Aug, 2014 [facility] [address] [id number] [address] [place] [address], [place] [address] Aug, 2014 [facility] [address] [id number] [address] [place] [place] [address], [place] [address] Aug, 2014 [facility] [address] [id number] [address] [place] [place] [address], [place] [address] Aug, [facility] [address] [id number] [address] [place] [place] [address], [place] [address] Aug, [facility] [address] [id number] [address] [place] [address], [place] [address] Jul, [facility] [address] [id number] [address] [place] [id number] Jul, [facility] [address] [id number] [address] [place] [place] [address], [place] [address] Jun, [facility] [address] [id number] [address] [place] [address], [place] [address] Jun, [facility] [address] [id number] [address] [place] [place] [address], [place] [address] Jun, [facility] [address] [id number] [address] [place] [phone] Jun, [facility] [address] [id number] [address] [place] [address], [place] [address] Jun, [facility] [address] [id number] [address] [place] [address], [place] [address] Jun, [facility] [address] [id number] [address] [place] [place] [address], [place] [address] Jun, [facility] [address] [id number] [address] [place] [address], [place] [address] Jun, [facility] [address] [id number] [address] [place] [place] [address], [place] [address] Jun, [facility] [address] [id number] [address] [place] [address], [place] [address] Jun, [facility] [address] [id number] [address] [place] [place] [address], [place] [address] Jun, [facility] [address] [id number] [address] [place] [address], [place] [address] May, [facility] [address] [id number] [address] [place] [place] [address], [place] [address] May, [facility] [address] [id number] [address] [place] [address], [place] [address] May, [facility] [address] [id number] [address] [place] [address], [place] [address] May, [facility] [address] [id number] [address] [place] [address], [place] [address] May, [facility] [address] [id number] [address] [place] [place] [address], [place] [address] May, [facility] [address] [id number] [address] [place] [address], [place] [address] May, [facility] [address] [id number] [address] [place] [address], [place] [address] May, [facility] [address] [id number] [address] [place] [address], [place] [address] May, [facility] [address] [id number] [address] [place] [place] [address], [place] [address] Apr, [facility] [address] [id number] [address] [place] [place] [address], [place] [address] Apr, [facility] [address] [id number] [address] [place] [place] [address], [place] [address] Apr, [facility] [address] [id number] [address] [place] [place] [address], [place] [address] Apr, [facility] [address] [id number] [address] [place] [address], [place] [address] Apr, [facility] [address] [id number] [address] [place] [address], [place] [address] Mar, [facility] [address] [id number] [address] [place] [address], [place] [address] Mar, [facility] [address] [id number] [address] [place] [place] [address], [place] [address] Feb, [facility] [address] [id number] [address] [place] [address], [place] [address] Feb, [facility] [address] [id number] [address] [place] [address], [place] [address] Feb, [facility] [address] [id number] [address] [place] [address], [place] [address] Feb, [facility] [address] [id number] [address] [place] [address], [place] [address] Feb, [facility] [address] [id number] [address] [place] [address], [place] [address] Feb, [facility] [address] [id number] [address] [place] [address], [place] [address] Jan, [facility] [address] [id number] [address] [place] [address], [place] [address] Jan, [facility] [address] [id number] [facility] [place] [address] Jan, [facility] [address] [id number] [facility] [place] [address] Jan, [facility] [address] [id number] [facility] [place] [address] Jan, [facility] [address] [id number] [facility] [place] [address] Jan, [facility] [address] [id number] [facility] [place] [address] Jan, [facility] [address] [id number] [address] [place] [address], [place] [address] Jan, [facility] [address] [id number] [address] [place] [address], [place] [address] Jan, [facility] [address] [id number] [address] [place] [address], [place] [address] Jan, [facility] [address] [id number] [address] [place] [address], [place] [address] Jan, [facility] [address] [id number] [address] [place] [address], [place] [address] Dec, [facility] [address] [id number] [address] [place] [address], [place] [address] Dec, [facility] [address] [id number] [address] [place] [address], [place] [address] Dec, [facility] [address] [id number] [address] [place] [address], [place] [address] Dec, [facility] [address] [id number] [address] [place] [address], [place] [address] Dec, [facility] [address] [id number] [address] [place] [address], [place] [address] Dec, [facility] [address] [id number] [address] [place] [address], [place] [address] November, [facility] [address] [id number] [address] [place] [address], [place] [address] November, [facility] [address] [id number] [address] [place] [address], [place] [address] November, [facility] [address] [id number] [address] [place] [address], [place] [address] November, [facility] [address] [id number] [address] [place] [address], [place] [address] November, [facility] [address] [id number] [address] [place] [address], [place] [address] November, [facility] [address] [id number] [address] [place] [address], [place] [address] Oct, [facility] [address] [id number] [address] [place] [address], [place] [address] Oct, [facility] [address] [id number] [address] [place] [address], [place] [address] Oct, [facility] [address] [id number] [address] [place] [address], [place] [address] Oct, [facility] [address] [id number] [address] [place] [address], [place] [address] Sep, [facility] [address] [id number] [address] [place] [address], [place] [address] 17 Sep, 2013 [facility] [address] [id number] [address] [place] [address], [place] [address] Sep, [facility] [address] [id number] [address] [place] [address], [place] [address] Sep, [facility] [address] [id number] [address] [place] [address], [place] [address] Sep, [facility] [address] [id number] [address] [place] [address], [place] [address] Aug, [facility] [address] [id number] [address] [place] [address], [place] [address] Aug, [facility] [address] [id number] [address] [place] [address], [place] [address] Aug, [facility] [address] [id number] [address] [place] [address], [place] [address] Aug, [facility] [address] [id number] [address] [place] [address], [place] [address] Aug, [facility] [place] [id number] May, [facility] [address] [id number] [address] [place] [address], [place] [address] May, [facility] [address] [id number] [address] [place] [address], [place] [address] May, [facility] [address] [id number] [address] [place] [address], [place] [address] May, [facility] [address] [id number] [address] [place] [address], [place] [address] May, [facility] [address] [id number] [address] [place] [address], [place] [address] Apr, [facility] [address] [id number] [address] [place] [address], [place] [address] Apr, [facility] [address] [id number] [address] [place] [address], [place] [address] Apr, [facility] [address] [id number] [address] [place] [address], [place] [address] Apr, [facility] [address] [id number] [address] [place] [address], [place] [address] Apr, [facility] [address] [id number] [address] [place] [address], [place] [address] Apr, [facility] [address] [id number] [address] [place] [address], [place] [address] Apr, [facility] [address] [id number] [address] [place] [address], [place] [address] 28 Mar, 2013 [facility] [address] [id number] [address] [place] [address], [place] [address] Mar, [facility] [address] [id number] [address] [address], [place] [address] 24 Mar, 2013 [facility] [address] [id number] [address] [place] [place] [address], [place] [address] 16 Mar, 2013 [facility] [address] [id number] [address] [place] [address], [place] [address] Mar, [facility] [address] [id number] [address] [place] [address], [place] [address] Mar, [facility] [address] [id number] [address] [place] [address], [place] [address] Feb, [facility] [address] [id number] [address] [place] [address], [place] [address] Feb, [facility] [address] [id number] [address] [place] [address], [place] [address] Feb, [facility] [address] [id number] [address] [place] [address], [place] [address] Feb, [facility] [address] [id number] [address] [place] [address], [place] [address] Feb, [facility] [address] [id number] [address] [place] [address], [place] [address] Feb, [facility] [address] [id number] [address] [place] [address], [place] [address] Jan, [facility] [address] [id number] [address] [place] [address], [place] [address] Dec, [facility] [address] [id number] [address] [place] [place] [address], [place] [address] Dec, [facility] [address] [id number] [address] [place] [address], [place] [address] 20 Dec, 2012 [facility] [address] [id number] [address] [place] [address], [place] [address] Dec, [facility] [address] [id number] [address] [place] [address], [place] [address] 19 Dec, 2012 [facility] [address] [id number] [address] [place] [place] [address], [place] [address] 18 Dec, 2012 [facility] [address] [id number] [address] [place] [address], [place] [address] 17 Dec, 2012 [facility] [address] [id number] [address] [place] [address], [place] [address] Dec, [facility] [address] [id number] [address] [place] [place] [address], [place] [address] 06 Dec, 2012 [facility] [address] [id number] [address] [place] [address], [place] [address] November, [facility] [address] [id number] [address] [place] [address], [place] [address] November, [facility] [address] [id number] [address] [place] [address], [place] [address] Oct, [facility] [address] [id number] [address] [place] [address], [place] [address] Sep, [facility] [address] [id number] [address] [place] [address], [place] [address] Sep, [facility] [address] [id number] [address] [place] [address], [place] [address] 15 Sep, 2012 [facility] [address] [id number] [address] [place] [address], [place] [address] 11 Sep, 2012 [facility] [address] [id number] [address] [place] [address], [place] [address] Aug, [facility] [address] [id number] [address] [place] [address], [place] [address] Aug, [facility] [address] [facility] [id number] [address] [place] [phone] Jul, [facility] [address] [facility] [id number] [address] [place] [id number] Jul, [facility] [address] [facility] [id number] [address] [place] [id number] Jul, [facility] [address] [facility] [id number] [address] [place] [phone] Sep, [facility] [address] [facility] [id number] [address] [place] [phone] Sep, [facility] [address] [facility] [id number] [address] [place] [id number] Sep, IMMUNIZATIONS No Known Immunizations SOCIAL HISTORY Never Assessed REASON FOR VISIT PLAN OF CARE VITAL SIGNS Height 67 in 2014-05-07 Weight 167.7 lbs 2014-05-07 Temperature 97.2 degrees Fahrenheit 2014-05-07 Heart Rate 64 bpm 2014-05-07 Respiratory Rate 18 2014-05-07 Blood pressure systolic 130 mmHg 2014-05-07 Blood pressure diastolic 72 mmHg 2014-05-07 MEDICATIONS Unknown Medications RESULTS No Results PROCEDURES [...] bowel obstruction, Dehydration -[facility] 01/01/17 Hospitalization History [facility]- UTI/Sepsis 01/18/2018 Hospitalization History [facility] - infection 4 days 05/2018
--- OUTSIDE RECORDS SUMMARY | 2020-01-14 23:04 | XMS REPORT ---
Author Author Melvin BENTLEY Organization [facility] Address [address] [place] [address] Care Team Providers Care Host/Hostess Ground Name Role Phone LINDA BENTLEY Unavailable PROBLEMS Type Condition ICD9-CM Code QLA21-SA Code Onset Dates Condition S tatus SNOMED Code Problem Incontinence of feces, unspecified fecal incontinence type R15.9 Active 82370907 Problem Primary insomnia F51.01 Active 193 102737 Problem Hydronephrosis with ureteral stricture, not else where classified N13.1 Active 79418967 Problem Chronic fatigue, unspecified R53.82 A ctive 921108735 Problem Hypertension, benign I10 Active 88227347 Problem Mood disorder F39 Active 276448 05 Problem Neuropathy G62.9 Active 623100195 Problem Chronic pain syndrome G89.4 Active 311564344 Problem Abdominal pain, left lower quadrant R10.32 Active 750999269 Problem 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 Active 127267271 Problem 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 225815748 Problem Anxiety F41.9 Active 30741196 Problem Polyneuropathy G62.9 Active 40014 000 Problem Malignant neoplasm of colon, unspecified part of colon C18.9 Active 398979417 Problem Attention to urostomy Z43.6 Active 603701705 ALLERGIES No Information ENCOUNTERS Encounter Location Date Diagnosis [facility] [address] [facility] [id number] [address] [place] [address] Mar, [facility] [address] [facility] [id number] [address] [place] [address] Feb, Primary insomnia F51.01 ; Ne uropathy G62.9 and Encounter for Medicare annual wellness exam Z00.00 [facility] [address] [facility] [id number] [address] [place] [address] Feb, Neuropathy G62.9 and Encount er for Medicare annual wellness exam Z00.00 [facility] [address] [id number] [address] [place] [address] Feb, Primary insomnia F51.01 and High risk medication use Z79.899 [facility] [address] [id number] [address] [place] [address] Jan, [facility] [address] [id number] [address] [place] [phone] Jan, Neuropathy G62.9 [facility] [address] [id number] [address] [place] [address] Dec, [facility] [address] [id number] [address] [place] [address] Dec, Encounter for Medicare annua l wellness exam Z00.00 and Neuropathy G62.9 [facility] [address] [id number] [address] [place] [address] November, [facility] [address] [id number] [address] [place] [address] November, Encounter for Medicare annua l wellness exam Z00.00 ; 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 ; Mood disorder F39 ; Chronic fatigue, unspecified R53.82 and Neuropathy G62.9 [facility] [address] [id number] [address] [place] [address] November, Neuropathy G62.9 [facility] [address] [id number] [address] [place] [address] Oct, Neuropathy G62.9 [facility] [address] [id number] [address] [place] [address] Oct, Hypertension, benign I10 and Anxiety F41.9 [facility] [address] [id number] [address] [place] [phone] Oct, [facility] [address] [id number] [address] [place] [address] Oct, [facility] [address] [id number] [address] [place] [address] Oct, [facility] [address] [id number] [address] [place] [address] Oct, Neuropathy G62.9 [facility] [address] [id number] [address] [place] [address] Sep, [facility] [address] [id number] [address] [place] [address] Sep, Neuropathy G62.9 [facility] [address] [id number] [address] [place] [address] Sep, [facility] [address] [id number] [address] [place] [address] Sep, H/O malignant carcinoid tumo r of rectum Z85.040 and Primary insomnia F51.01 [facility] [address] [id number] [address] [place] [address] Aug, [facility] [address] [id number] [address] [place] [address] Aug, Neuropathy G62.9 [facility] [address] [id number] [address] [place] [address] Aug, [facility] [address] [id number] [address] [place] [address] Jul, Non-recurrent acute suppurat francine otitis media of left ear without spontaneous rupture of tympanic membrane H66.002 [facility] [address] [id number] [address] [place] [address] Jul, Neuropathy G62.9 [facility] [address] [id number] [address] [place] [address] Jun, [facility] [address] [id number] [address] [place] [address] Jun, [facility] [address] [place] [id number] [place] [address] Jun, Neuropathy G62.9 [facility] [address] [address] Jun, [facility] [address] [id number] [place] [address] Jun, [facility] [address] [address] Jun, Lumbar neuritis M54.16 [facility] [id number] [place] [address] May, Neuropathy G62.9 [facility] [address] [address] May, [facility] [address] [address] May, Neuropathy G62.9 and Hyperte nsion, benign I10 [facility] [address] [address] Apr, Polyneuropathy G62.9 and Hyp ertension, benign I10 [facility] [address] [address] 17 Mar, 2018 Chronic pain syndrome G89.4 and Hypertension, benign I10 [facility] [address] [address] Mar, Polyneuropathy G62.9 and Hyp ertension, benign I10 [facility] [address] [address] Feb, [facility] [address] [address] Feb, Hypertension, benign I10 [facility] [address] [id number] [place] [address] Feb, Hypertension, benign I10 ; P olyneuropathy G62.9 and Primary insomnia F51.01 [facility] [address] [id number] [address] [place] [address] 17 Jan, 2018 Hypertension, benign I10 and Polyneuropathy G62.9 [facility] [address] [id number] [address] [place] [address] 16 Jan, 2018 Hypertension, benign I10 and Neuropathy G62.9 [facility] [address] [id number] [address] [place] [address] Jan, [facility] [address] [id number] [address] [place] [address] Dec, Polyneuropathy G62.9 [facility] [address] [id number] [address] [place] [address] Dec, Mood disorder F39 [facility] [address] [id number] [address] [place] [address] November, Polyneuropathy G62.9 [facility] [address] [facility] [id number] [address] [place] [address] November, Medicare annual wellness vis it, initial Z00.00 [facility] [address] [id number] [address] [place] [address] November, Mood disorder F39 [facility] [address] [facility] [id number] [address] [place] [address] Oct, Polyneuropathy G62.9 [facility] [address] [facility] [id number] [address] [place] [address] Oct, [facility] [address] [facility] [id number] [address] [place] [address] Oct, [facility] [address] [facility] [id number] [address] [place] [address] Oct, Mood disorder F39 ; Attentio n to urostomy Z43.6 ; Chronic pain syndrome G89.4 and Polyneuropathy G62.9 [facility] [address] [id number] [address] [place] [address] Sep, Polyneuropathy G62.9 [facility] [address] [id number] [address] [place] [address] Sep, [facility] [address] [facility] [id number] [address] [place] [address] Sep, Polyneuropathy G62.9 [facility] [address] [facility] [id number] [address] [place] [address] Aug, Polyneuropathy G62.9 [facility] [address] [facility] [id number] [address] [place] [address] Aug, Malignant neoplasm of colon, unspecified part of colon C18.9 and Polyneuropathy G62.9 [facility] [address] [facility] [id number] [address] [place] [address] Aug, Neuropathy G62.9 and Polyneu ropathy G62.9 [facility] [address] [facility] [id number] [address] [place] [address] Jul, Encounter for drug screening Z02.83 [facility] [address] [facility] [id number] [address] [place] [address] Jul, Polyneuropathy G62.9 [facility] [address] [facility] [id number] [address] [place] [address] Jul, [facility] [address] [id number] [address] [place] [address] Jul, Neuropathy G62.9 and Anxiety F41.9 [facility] [address] [facility] [id number] [address] [place] [address] Jul, [facility] [address] [facility] [id number] [address] [place] [phone] Jul, [facility] [address] [facility] [id number] [address] [place] [address] Jul, [facility] [address] [address] Jul, Polyneuropathy G62.9 [facility] [address] [address] Jul, [facility] [id number] [place] [address] Jun, [facility] [address] [address] Jun, [facility] [address] [id number] Jun, [facility] [address] [place] [address] [place] [address] 07 Jun, 2017 Encounter for dental examina tion Z01.20 [place] [id number] [address] Jun, Polyneuropathy G62.9 and Anx iety F41.9 [facility] [address] [address] Jun, [facility] [address] [place] [id number] [place] [address] May, Dental examination Z01.20 [facility] [address] [address] May, Polyneuropathy G62.9 [facility] [address] [place] [id number] [address] [place] [address] Apr, Polyneuropathy G62.9 [facility] [id number] [place] [address] Apr, Polyneuropathy G62.9 [facility] [id number] [place] [address] Apr, Hypertension, benign I10 ; P olyneuropathy G62.9 and Anxiety F41.9 [facility] [address] [id number] [place] [address] Apr, Primary insomnia F51.01 and Polyneuropathy G62.9 [facility] [address] [id number] [address] [place] [address] Apr, Primary insomnia F51.01 and Polyneuropathy G62.9 [facility] [address] [id number] [address] [place] [address] Mar, Primary insomnia F51.01 [facility] [address] [id number] [address] [place] [address], [place] [address] Mar, [facility] [address] [id number] [address] [place] [address] Mar, Polyneuropathy G62.9 [facility] [address] [facility] [id number] [address] [place] [address] Feb, Primary insomnia F51.01 [facility] [address] [id number] [address] [place] [address] Feb, [facility] [address] [id number] [address] [place] [address] Feb, [facility] [address] [facility] [id number] [address] [place] [address] Feb, Polyneuropathy G62.9 [facility] [address] [id number] [address] [place] [address] Feb, Primary insomnia F51.01 [facility] [address] [id number] [address] [place] [address] Jan, [facility] [address] [id number] [address] [place] [address] Jan, [facility] [address] [id number] [address] [place] [address] Dec, [facility] [address] [facility] [id number] [address] [place] [address] Dec, Primary insomnia F51.01 [facility] [address] [facility] [id number] [address] [place] [address] Dec, Primary insomnia F51.01 [facility] [address] [id number] [address] [place] [address] Dec, [facility] [address] [facility] [id number] [address] [place] [address] Dec, [facility] [address] [id number] [address] [place] [address] Dec, [facility] [address] [facility] [id number] [address] [place] [address] Dec, [facility] [address] [facility] [id number] [address] [place] [address] November, Primary insomnia F51.01 and Polyneuropathy G62.9 [facility] [address] [facility] [id number] [address] [place] [address] November, [facility] [address] [facility] [id number] [address] [place] [address] November, Abdominal pain, left lower q uadrant R10.32 [facility] [address] [facility] [id number] [address] [place] [address] November, [facility] [address] [facility] [id number] [address] [place] [address] Oct, [facility] [address] [facility] [id number] [address] [place] [address] Oct, Abdominal pain, left lower q uadrant R10.32 ; 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 and Neuropathy G62.9 [facility] [address] [facility] [id number] [address] [place] [address] Oct, [facility] [address] [facility] [id number] [address] [place] [address] Sep, [facility] [id number] [place] [id number] Sep, [facility] [address] [id number] [address] [place] [address] Sep, [facility] [address] [id number] [address] [place] [address] Aug, [facility] [address] [id number] [address] [place] [address] Aug, [facility] [address] [id number] [address] [place] [address] Aug, Abdominal pain, left lower q uadrant R10.32 ; Neuropathy G62.9 and Anxiety F41.9 [facility] [address] [place] [address] Jul, [facility] [address] [facility] [id number] [address] [place] [address] Jul, [facility] [address] [facility] [id number] [address] [place] [address] Jul, [facility] [address] [id number] [address] [place] [address] Jul, [facility] [address] [facility] [id number] [address] [place] [address] Jul, [facility] [address] [id number] [address] [place] [address] Jun, [facility] [address] [id number] [address] [place] [address] May, [facility] [address] [id number] [address] [place] [address] May, [facility] [address] [id number] [address] [place] [address] Apr, [facility] [address] [facility] [id number] [address] [place] [address] Apr, Muscle spasms of both lower extremities M62.838 and Cellulitis, unspecified cellulitis site L03.90 [facility] [address] [id number] [address] [place] [address] 07 Apr, 2016 [facility] [address] [id number] [address] [place] [address] 23 Mar, 2016 Generalized abdominal pain R 10.84 [facility] [address] [id number] [address] [place] [address] 20 Mar, 2016 [facility] [address] [id number] [address] [place] [address] 14 Mar, 2016 [facility] [address] [id number] [address] [place] [address] 14 Mar, 2016 [facility] [address] [id number] [address] [place] [address] 13 Mar, 2016 [facility] [address] [id number] [address] [place] [address] 12 Mar, 2016 [facility] [address] [id number] [address] [place] [phone] 09 Mar, 2016 [facility] [address] [id number] [address] [place] [address] 06 Mar, 2016 [facility] [address] [id number] [address] [place] [address] 17 Feb, 2016 Other specified diseases of anus and rectum K62.89 [facility] [address] [id number] [address] [place] [address] 15 Feb, 2016 [facility] [address] [id number] [address] [place] [phone] 09 Feb, 2016 Dizziness R42 [facility] [address] [id number] [address] [place] [phone] 08 Feb, 2016 [facility] [address] [id number] [address] [place] [address] Jan, Polyneuropathy G62.9 [facility] [address] [id number] [address] [place] [address], [place] [address] Jan, Other specified diseases of anus and rectum K62.89 [facility] [place] [address] [id number] [address] [place] [address], [place] [address] Jan, [facility] [address] [id number] [address] [place] [address], [place] [address] 16 Jan, 2016 [facility] [place] [address] [id number] [address] [place] [address], [place] [address] Jan, [facility] [place] [address] [id number] [address] [place] [address], [place] [address] Jan, Dizziness R42 [facility] [place] [address] [id number] [address] [place] [address], [place] [address] Dec, [facility] [place] [address] [id number] [address] [place] [address], [place] [address] Dec, [facility] [place] [address] [id number] [address] [place] [address], [place] [address] Dec, [facility] [place] [address] [id number] [address] [place] [address], [place] [address] Dec, Dizziness R42 [facility] [place] [address] [id number] [address] [place] [address], [place] [address] November, [facility] [place] [address] [id number] [address] [place] [address], [place] [address] Oct, [facility] [place] [address] [id number] [address] [place] [phone] Oct, [facility] [place] [address] [id number] [address] [place] [address], [place] [address] Oct, [facility] [place] [address] [id number] [address] [place] [address], [place] [address] Oct, [facility] [place] [address] [id number] [address] [place] [address], [place] [address] Sep, [facility] [place] [address] [address] Sep, Primary insomnia F51.01 [facility] [address] [address] Sep, Primary insomnia F51.01 [facility] [address] [id number] Sep, [facility] [address] [address] Aug, [facility] [address] [address] Aug, [facility] [address] [id number] Aug, Primary insomnia F51.01 ; Mo od disorder F39 ; Nausea and vomiting, unspecified intactability, vomiting of unspecified type R11.2 and Diarrhea R19.7 [facility] [address] [address] Aug, [facility] [address] [id number] Aug, Folliculitis L73.9 [facility] [address] [id number] Aug, [facility] [address] [id number] Aug, [facility] [address] [id number] Jul, Folliculitis L73.9 [facility] [address] [id number] Jul, [facility] [address] [id number] Jun, Folliculitis L73.9 [facility] [address] [id number] Jun, [facility] [address] [id number] [address] [place] [id number] May, Polyneuropathy G62.9 [facility] [address] [id number] [address] [place] [id number] May, Other specified diseases of anus and rectum K62.89 [facility] [address] [id number] [address] [place] [id number] May, [facility] [address] [id number] [address] [place] [id number] May, Primary insomnia F51.01 [facility] [address] [facility] [id number] [address] [place] [id number] May, [facility] [address] [facility] [id number] [address] [place] [id number] May, [facility] [address] [facility] [id number] [address] [place] [id number] Apr, Other specified diseases of anus and rectum K62.89 ; Chronic fatigue R53.82 ; Urinary tract infection, site not specified N39.0 and Enterococcus as the cause of diseases classified elsewhere B95.2 [facility] [address] [facility] [id number] [address] [place] [id number] 16 Apr, 2015 [facility] [address] [facility] [id number] [address] [place] [id number] Apr, [facility] [address] [facility] [id number] [address] [place] [id number] Apr, 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 [facility] [address] [facility] [id number] [address] [place] [id number] Apr, [facility] [address] [facility] [id number] [place] [id number] Mar, [facility] [address] [facility] [id number] [address] [place] [id number] Mar, [facility] [address] [id number] [address] [place] [id number] 17 Mar, 2015 [facility] [address] [id number] [address] [place] [id number] 14 Mar, 2015 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 [facility] [place] [address] [id number] [address] [place] [id number] 12 Mar, 2015 [facility] [address] [id number] [address] [place] [id number] 11 Mar, 2015 [facility] [address] [id number] [address] [place] [id number] 11 Mar, 2015 [facility] [address] [id number] [address] [place] [id number] 10 Mar, 2015 [facility] [place] [address] [id number] [address] [place] [phone] Feb, [facility] [address] [id number] [address] [place] [phone] Feb, [facility] [address] [id number] [address] [place] [phone] Feb, [facility] [place] [address] [id number] [address] [place] [id number] 30 Jan, 2015 [facility] [place] [address] [id number] [address] [place] [id number] Jan, Nausea 787.02 and Neuropathy 355.9 [facility] [place] [address] [id number] [address] [place] [phone] Jan, [facility] [place] [address] [id number] [address] [place] [phone] Jan, [facility] [place] [address] [id number] [address] [place] [phone] 16 Jan, 2015 [facility] [address] [id number] [address] [place] [id number] Jan, Dental examination V72.2 [facility] [address] [id number] [address] [place] [address], [place] [address] Jan, [facility] [address] [id number] [address] [place] [phone] Dec, [facility] [address] [id number] [address] [place] [phone] Dec, [facility] [address] [id number] [address] [place] [phone] Dec, Neuropathy 355.9 [facility] [address] [id number] [address] [place] [address], [place] [address] November, [facility] [address] [id number] [address] [place] [phone] November, [facility] [address] [id number] [address] [place] [phone] November, [facility] [address] [id number] [address] [place] [phone] Oct, [facility] [address] [id number] [address] [place] [phone] Oct, [facility] [address] [id number] [address] [place] [id number] Sep, [facility] [address] [id number] [address] [place] [phone] Sep, [facility] [address] [id number] [address] [place] [phone] Sep, [facility] [address] [id number] [address] [place] [id number] Sep, [facility] [address] [id number] [address] [place] [phone] Sep, [facility] [address] [id number] [address] [place] [phone] Sep, [facility] [address] [id number] [address] [place] [address], [place] [address] Sep, [facility] [address] [id number] [address] [place] [address], [place] [address] Sep, [facility] [address] [id number] [address] [place] [address], [place] [address] Aug, 2014 [facility] [address] [id number] [address] [place] [address], [place] [address] Aug, 2014 [facility] [address] [id number] [address] [place] [address], [place] [address] Aug, 2014 [facility] [address] [id number] [address] [place] [address], [place] [address] Aug, 2014 [facility] [address] [id number] [address] [place] [address], [place] [address] Aug, 2014 [facility] [address] [id number] [address] [place] [address], [place] [address] Aug, 2014 [facility] [address] [id number] [address] [place] [address], [place] [address] Aug, [facility] [address] [id number] [address] [place] [address], [place] [address] Aug, [facility] [address] [id number] [address] [place] [address], [place] [address] Jul, [facility] [address] [id number] [address] [place] [phone] Jul, [facility] [address] [id number] [address] [place] [address], [place] [address] Jun, [facility] [address] [id number] [address] [place] [address], [place] [address] Jun, [facility] [address] [id number] [address] [place] [address], [place] [address] Jun, [facility] [address] [id number] [address] [place] [phone] Jun, [facility] [address] [id number] [address] [place] [address], [place] [address] Jun, [facility] [address] [id number] [address] [place] [address], [place] [address] Jun, [facility] [address] [id number] [address] [place] [address], [place] [address] Jun, [facility] [address] [id number] [address] [place] [address], [place] [address] Jun, [facility] [address] [id number] [address] [place] [address], [place] [address] Jun, [facility] [address] [id number] [address] [place] [address], [place] [address] Jun, [facility] [address] [id number] [address] [place] [address], [place] [address] Jun, [facility] [address] [id number] [address] [place] [address], [place] [address] May, [facility] [address] [id number] [address] [place] [address], [place] [address] May, [facility] [address] [id number] [address] [place] [address], [place] [address] May, [facility] [address] [id number] [address] [place] [address], [place] [address] May, [facility] [address] [id number] [address] [place] [address], [place] [address] May, [facility] [address] [id number] [address] [place] [address], [place] [address] May, [facility] [address] [id number] [address] [place] [address], [place] [address] May, [facility] [address] [id number] [address] [place] [address], [place] [address] May, [facility] [address] [id number] [address] [place] [address], [place] [address] May, [facility] [address] [id number] [address] [place] [address], [place] [address] Apr, [facility] [address] [id number] [address] [place] [address], [place] [address] Apr, [facility] [address] [id number] [address] [place] [address], [place] [address] Apr, [facility] [address] [id number] [address] [place] [address], [place] [address] Apr, [facility] [address] [id number] [address] [place] [address], [place] [address] Apr, [facility] [address] [id number] [address] [place] [address], [place] [address] Mar, [facility] [address] [id number] [address] [place] [address], [place] [address] Mar, [facility] [address] [id number] [address] [place] [address], [place] [address] Feb, [facility] [address] [id number] [address] [place] [address], [place] [address] Feb, [facility] [address] [id number] [address] [place] [address], [place] [address] Feb, [facility] [address] [id number] [address] [place] [address], [place] [address] Feb, [facility] [address] [id number] [address] [place] [address], [place] [address] Feb, [facility] [address] [id number] [address] [place] [address], [place] [address] Feb, [facility] [address] [id number] [address] [place] [address], [place] [address] Jan, [facility] [address] [id number] [address] [place] [address], [place] [address] Jan, [facility] [address] [id number] [facility] [address] Jan, [facility] [address] [id number] [facility] [address] Jan, [facility] [address] [id number] [facility] [address] Jan, [facility] [address] [id number] [facility] [address] Jan, [facility] [address] [id number] [facility] [address] Jan, [facility] [address] [id number] [address] [place] [address], [place] [address] Jan, [facility] [address] [id number] [address] [place] [address], [place] [address] Jan, [facility] [address] [id number] [address] [place] [address], [place] [address] Jan, [facility] [address] [id number] [address] [place] [address], [place] [address] Jan, [facility] [address] [id number] [address] [place] [address], [place] [address] Dec, [facility] [address] [id number] [address] [place] [address], [place] [address] Dec, [facility] [address] [id number] [address] [place] [address], [place] [address] Dec, [facility] [address] [id number] [address] [place] [address], [place] [address] Dec, [facility] [address] [id number] [address] [place] [address], [place] [address] Dec, [facility] [address] [id number] [address] [place] [address], [place] [address] Dec, [facility] [address] [id number] [address] [place] [address], [place] [address] November, [facility] [address] [id number] [address] [place] [address], [place] [address] November, [facility] [address] [id number] [address] [place] [address], [place] [address] November, [facility] [address] [id number] [address] [place] [address], [place] [address] November, [facility] [address] [id number] [address] [place] [address], [place] [address] November, [facility] [address] [id number] [address] [place] [address], [place] [address] November, [facility] [address] [id number] [address] [place] [address], [place] [address] Oct, [facility] [address] [id number] [address] [place] [address], [place] [address] Oct, [facility] [address] [id number] [address] [place] [address], [place] [address] Oct, [facility] [address] [id number] [address] [place] [address], [place] [address] Oct, [facility] [address] [id number] [address] [place] [address], [place] [address] Sep, [facility] [address] [id number] [address] [place] [address], [place] [address] 17 Sep, 2013 [facility] [address] [id number] [address] [place] [address], [place] [address] Sep, [facility] [address] [id number] [address] [place] [address], [place] [address] Sep, [facility] [address] [id number] [address] [place] [address], [place] [address] Sep, [facility] [address] [id number] [address] [place] [address], [place] [address] Aug, [facility] [address] [id number] [address] [place] [address], [place] [address] Aug, [facility] [address] [id number] [address] [place] [address], [place] [address] Aug, [facility] [address] [id number] [address] [place] [address], [place] [address] Aug, [facility] [address] [id number] [address] [place] [address], [place] [address] Aug, [facility] [id number] May, [facility] [address] [id number] [address] [place] [address], [place] [address] May, [facility] [address] [id number] [address] [place] [address], [place] [address] May, [facility] [address] [id number] [address] [place] [address], [place] [address] May, [facility] [address] [id number] [address] [place] [address], [place] [address] May, [facility] [address] [id number] [address] [place] [address], [place] [address] Apr, [facility] [address] [id number] [address] [place] [address], [place] [address] Apr, [facility] [address] [id number] [address] [place] [address], [place] [address] Apr, [facility] [address] [id number] [address] [place] [address], [place] [address] Apr, [facility] [address] [id number] [address] [place] [address], [place] [address] Apr, [facility] [address] [id number] [address] [place] [address], [place] [address] Apr, [facility] [address] [id number] [address] [place] [address], [place] [address] Apr, [facility] [address] [id number] [address] [place] [address], [place] [address] 28 Mar, 2013 [facility] [address] [id number] [address] [place] [address], [place] [address] Mar, [facility] [address] [id number] [address] [place] [address], [place] [address] 24 Mar, 2013 [facility] [address] [id number] [address] [place] [address], [place] [address] 16 Mar, 2013 [facility] [address] [id number] [address] [place] [address], [place] [address] Mar, [facility] [address] [id number] [address] [place] [address], [place] [address] Mar, [facility] [address] [id number] [address] [place] [address], [place] [address] Feb, [facility] [address] [id number] [address] [place] [address], [place] [address] Feb, [facility] [address] [id number] [address] [place] [address], [place] [address] Feb, [facility] [address] [id number] [address] [place] [address], [place] [address] Feb, [facility] [address] [id number] [address] [place] [address], [place] [address] Feb, [facility] [address] [id number] [address] [place] [address], [place] [address] Feb, [facility] [address] [id number] [address] [place] [address], [place] [address] Jan, [facility] [address] [id number] [address] [place] [address], [place] [address] Dec, [facility] [address] [id number] [address] [place] [address], [place] [address] Dec, [facility] [address] [id number] [address] [place] [address], [place] [address] 20 Dec, 2012 [facility] [address] [id number] [address] [place] [address], [place] [address] Dec, [facility] [address] [id number] [address] [place] [address], [place] [address] 19 Dec, 2012 [facility] [address] [id number] [address] [place] [address], [place] [address] 18 Dec, 2012 [facility] [address] [id number] [address] [place] [address], [place] [address] 17 Dec, 2012 [facility] [address] [id number] [address] [place] [address], [place] [address] Dec, [facility] [address] [id number] [address] [place] [address], [place] [address] 06 Dec, 2012 [facility] [address] [id number] [address] [place] [address], [place] [address] November, [facility] [address] [id number] [address] [place] [address], [place] [address] November, [facility] [address] [id number] [address] [place] [address], [place] [address] Oct, [facility] [address] [id number] [address] [place] [address], [place] [address] Sep, [facility] [address] [id number] [address] [place] [address], [place] [address] Sep, [facility] [address] [id number] [address] [place] [address], [place] [address] 15 Sep, 2012 [facility] [address] [id number] [address] [place] [address], [place] [address] 11 Sep, 2012 [facility] [address] [id number] [address] [place] [address], [place] [address] Aug, [facility] [address] [id number] [address] [place] [address], [place] [address] Aug, [facility] [address] [facility] [id number] [address] [place] [address] Jul, [facility] [address] [facility] [id number] [address] [place] [address] Jul, [facility] [address] [facility] [id number] [address] [place] [id number] Jul, [facility] [address] [facility] [id number] [address] [place] [id number] Sep, [facility] [address] [facility] [id number] [address] [place] [id number] Sep, [facility] [address] [facility] [id number] [address] [place] [id number] Sep, IMMUNIZATIONS No Known Immunizations SOCIAL HISTORY [...] bowel obstruction, Dehydration -[facility] 01/01/17 Hospitalization History [facility]- UTI/Sepsis 01/18/2018 Hospitalization History [facility] - infection 4 days 05/2018
--- OUTSIDE RECORDS SUMMARY | 2020-01-14 23:04 | XMS REPORT ---
Author Author Melvin BENTLEY Organization [facility] Address [address] [place] [address] Care Team Providers Care Face Cleaner Name Role Phone LINDA BENTLEY Unavailable PROBLEMS Type Condition ICD9-CM Code [id number] Code Onset Dates Condition S tatus SNOMED Code Problem Incontinence of feces, unspecified fecal incontinence type R15.9 Active 27923024 Problem Primary insomnia F51.01 Active 193 789310 Problem Hydronephrosis with ureteral stricture, not else where classified N13.1 Active 79846662 Problem Chronic fatigue, unspecified R53.82 A ctive 407412578 Problem Hypertension, benign I10 Active 70796676 Problem Mood disorder F39 Active 635605 05 Problem Neuropathy G62.9 Active 632817972 Problem Chronic pain syndrome G89.4 Active 880594568 Problem Abdominal pain, left lower quadrant R10.32 Active 473057596 Problem 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 Active 770984287 Problem 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 806303603 Problem Anxiety F41.9 Active 86110409 Problem Polyneuropathy G62.9 Active 47746 000 Problem Malignant neoplasm of colon, unspecified part of colon C18.9 Active 243413872 Problem Attention to urostomy Z43.6 Active [id number] ALLERGIES No Information ENCOUNTERS Encounter Location Date Diagnosis [facility] [address] [facility] [id number] [address] [place] [address] Apr, [facility] [address] [facility] [id number] [address] [place] [address] Feb, Primary insomnia F51.01 ; Ne uropathy G62.9 and Encounter for Medicare annual wellness exam Z00.00 [facility] [address] [facility] [id number] [address] [place] [address] Feb, Neuropathy G62.9 and Encount er for Medicare annual wellness exam Z00.00 [facility] [address] [id number] [address] [place] [address] Feb, Primary insomnia F51.01 and High risk medication use Z79.899 [facility] [address] [id number] [address] [place] [address] Jan, [facility] [address] [id number] [address] [place] [address] Jan, Neuropathy G62.9 [facility] [address] [id number] [address] [place] [id number] Dec, [facility] [address] [id number] [address] [place] [id number] Dec, Encounter for Medicare annua l wellness exam Z00.00 and Neuropathy G62.9 [facility] [address] [id number] [address] [place] [address] November, [facility] [address] [id number] [address] [place] [address] November, Encounter for Medicare annua l wellness exam Z00.00 ; 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 ; Mood disorder F39 ; Chronic fatigue, unspecified R53.82 and Neuropathy G62.9 [facility] [address] [id number] [address] [place] [address] November, Neuropathy G62.9 [facility] [address] [id number] [address] [place] [address] Oct, Neuropathy G62.9 [facility] [address] [id number] [address] [place] [address] Oct, Hypertension, benign I10 and Anxiety F41.9 [facility] [address] [id number] [address] [place] [address] Oct, [facility] [address] [id number] [address] [place] [address] Oct, [facility] [address] [id number] [address] [place] [address] Oct, [facility] [address] [id number] [address] [place] [address] Oct, Neuropathy G62.9 [facility] [address] [id number] [address] [place] [address] Sep, [facility] [address] [id number] [address] [place] [address] Sep, Neuropathy G62.9 [facility] [address] [id number] [address] [place] [address] Sep, [facility] [address] [id number] [address] [place] [address] Sep, H/O malignant carcinoid tumo r of rectum Z85.040 and Primary insomnia F51.01 [facility] [address] [id number] [address] [place] [address] Aug, [facility] [address] [id number] [address] [place] [address] Aug, Neuropathy G62.9 [facility] [address] [id number] [address] [place] [address] Aug, [facility] [address] [id number] [address] [place] [address] Jul, Non-recurrent acute suppurat francine otitis media of left ear without spontaneous rupture of tympanic membrane H66.002 [facility] [address] [id number] [address] [place] [address] Jul, Neuropathy G62.9 [facility] [address] [id number] [address] [place] [address] Jun, [facility] [address] [id number] [address] [place] [address] Jun, [facility] [address] [place] [id number] [place] [address] Jun, Neuropathy G62.9 [facility] [address] [address] Jun, [facility] [address] [id number] [place] [address] Jun, [facility] [address] [address] Jun, Lumbar neuritis M54.16 [facility] [address] [id number] [place] [address] May, Neuropathy G62.9 [facility] [address] [address] May, [facility] [address] [id number] May, Neuropathy G62.9 and Hyperte nsion, benign I10 [facility] [address] [address] Apr, Polyneuropathy G62.9 and Hyp ertension, benign I10 [facility] [address] [address] 17 Mar, 2018 Chronic pain syndrome G89.4 and Hypertension, benign I10 [facility] [address] [address] Mar, Polyneuropathy G62.9 and Hyp ertension, benign I10 [facility] [address] [address] Feb, [facility] [address] [address] Feb, Hypertension, benign I10 [facility] [address] [id number] [place] [address] Feb, Hypertension, benign I10 ; P olyneuropathy G62.9 and Primary insomnia F51.01 [facility] [address] [id number] [address] [place] [address] 17 Jan, 2018 Hypertension, benign I10 and Polyneuropathy G62.9 [facility] [address] [id number] [address] [place] [id number] 16 Jan, 2018 Hypertension, benign I10 and Neuropathy G62.9 [facility] [address] [id number] [address] [place] [address] Jan, [facility] [address] [id number] [address] [place] [address] Dec, Polyneuropathy G62.9 [facility] [address] [id number] [address] [place] [address] Dec, Mood disorder F39 [facility] [address] [id number] [address] [place] [address] November, Polyneuropathy G62.9 [facility] [address] [facility] [id number] [address] [place] [address] November, Medicare annual wellness vis it, initial Z00.00 [facility] [address] [id number] [address] [place] [address] November, Mood disorder F39 [facility] [address] [facility] [id number] [address] [place] [address] Oct, Polyneuropathy G62.9 [facility] [address] [facility] [id number] [address] [place] [address] Oct, [facility] [address] [facility] [id number] [address] [place] [address] Oct, [facility] [address] [facility] [id number] [address] [place] [address] Oct, Mood disorder F39 ; Attentio n to urostomy Z43.6 ; Chronic pain syndrome G89.4 and Polyneuropathy G62.9 [facility] [address] [id number] [address] [place] [address] Sep, Polyneuropathy G62.9 [facility] [address] [id number] [address] [place] [address] Sep, [facility] [address] [facility] [id number] [address] [place] [address] Sep, Polyneuropathy G62.9 [facility] [address] [facility] [id number] [address] [place] [address] Aug, Polyneuropathy G62.9 [facility] [address] [facility] [id number] [address] [place] [address] Aug, Malignant neoplasm of colon, unspecified part of colon C18.9 and Polyneuropathy G62.9 [facility] [address] [facility] [id number] [address] [place] [address] Aug, Neuropathy G62.9 and Polyneu ropathy G62.9 [facility] [address] [facility] [id number] [address] [place] [address] Jul, Encounter for drug screening Z02.83 [facility] [address] [facility] [id number] [address] [place] [address] Jul, Polyneuropathy G62.9 [facility] [address] [facility] [id number] [address] [place] [address] Jul, [facility] [address] [id number] [address] [place] [id number] Jul, Neuropathy G62.9 and Anxiety F41.9 [facility] [address] [facility] [id number] [address] [place] [address] Jul, [facility] [address] [facility] [id number] [address] [place] [address] Jul, [facility] [address] [facility] [id number] [address] [place] [address] Jul, [facility] [address] [address] Jul, Polyneuropathy G62.9 [facility] [address] [address] Jul, [facility] [address] [place] [id number] [place] [address] Jun, [facility] [address] [address] Jun, [facility] [address] [address] Jun, [facility] [address] [place] [address] [place] [address] 07 Jun, 2017 Encounter for dental examina tion Z01.20 [place] [id number] [address] Jun, Polyneuropathy G62.9 and Anx iety F41.9 [facility] [address] [address] Jun, [facility] [address] [place] [address] [place] [address] May, Dental examination Z01.20 [facility] [address] [address] May, Polyneuropathy G62.9 [facility] [address] [place] [id number] [address] [place] [address] Apr, Polyneuropathy G62.9 [facility] [address] [id number] [place] [address] Apr, Polyneuropathy G62.9 [facility] [address] [id number] [place] [address] Apr, Hypertension, benign I10 ; P olyneuropathy G62.9 and Anxiety F41.9 [facility] [address] [place] [id number] [place] [address] Apr, Primary insomnia F51.01 and Polyneuropathy G62.9 [facility] [address] [id number] [address] [place] [address] Apr, Primary insomnia F51.01 and Polyneuropathy G62.9 [facility] [address] [id number] [address] [place] [address] Mar, Primary insomnia F51.01 [facility] [address] [id number] [address] [place] [address], [place] [address] Mar, [facility] [address] [id number] [address] [place] [address] Mar, Polyneuropathy G62.9 [facility] [address] [facility] [id number] [address] [place] [address] Feb, Primary insomnia F51.01 [facility] [address] [id number] [address] [place] [address] Feb, [facility] [address] [id number] [address] [place] [address] Feb, [facility] [address] [facility] [id number] [address] [place] [address] Feb, Polyneuropathy G62.9 [facility] [address] [id number] [address] [place] [address] Feb, Primary insomnia F51.01 [facility] [address] [id number] [address] [place] [address] Jan, [facility] [address] [id number] [address] [place] [address] Jan, [facility] [address] [id number] [address] [place] [address] Dec, [facility] [address] [facility] [id number] [address] [place] [address] Dec, Primary insomnia F51.01 [facility] [address] [facility] [id number] [address] [place] [address] Dec, Primary insomnia F51.01 [facility] [address] [id number] [address] [place] [address] Dec, [facility] [address] [facility] [id number] [address] [place] [address] Dec, [facility] [address] [id number] [address] [place] [address] Dec, [facility] [address] [facility] [id number] [address] [place] [address] Dec, [facility] [address] [facility] [id number] [address] [place] [address] November, Primary insomnia F51.01 and Polyneuropathy G62.9 [facility] [address] [facility] [id number] [address] [place] [address] November, [facility] [address] [facility] [id number] [address] [place] [address] November, Abdominal pain, left lower q uadrant R10.32 [facility] [address] [facility] [id number] [address] [place] [address] November, [facility] [address] [facility] [id number] [address] [place] [address] Oct, [facility] [address] [facility] [id number] [address] [place] [address] Oct, Abdominal pain, left lower q uadrant R10.32 ; 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 and Neuropathy G62.9 [facility] [address] [facility] [id number] [address] [place] [address] Oct, [facility] [address] [facility] [id number] [address] [place] [address] Sep, [facility] [id number] [place] [id number] Sep, [facility] [address] [id number] [address] [place] [address] Sep, [facility] [address] [id number] [address] [place] [address] Aug, [facility] [address] [id number] [address] [place] [address] Aug, [facility] [address] [id number] [address] [place] [address] Aug, Abdominal pain, left lower q uadrant R10.32 ; Neuropathy G62.9 and Anxiety F41.9 [facility] [address] [place] [address] Jul, [facility] [address] [facility] [id number] [address] [place] [address] Jul, [facility] [address] [facility] [id number] [address] [place] [address] Jul, [facility] [address] [id number] [address] [place] [id number] Jul, [facility] [address] [facility] [id number] [address] [place] [address] Jul, [facility] [address] [id number] [address] [place] [address] Jun, [facility] [address] [id number] [address] [place] [address] May, [facility] [address] [id number] [address] [place] [address] May, [facility] [address] [id number] [address] [place] [address] Apr, [facility] [address] [facility] [id number] [address] [place] [address] Apr, Muscle spasms of both lower extremities M62.838 and Cellulitis, unspecified cellulitis site L03.90 [facility] [address] [id number] [address] [place] [phone] 07 Apr, 2016 [facility] [address] [id number] [address] [place] [address] 23 Mar, 2016 Generalized abdominal pain R 10.84 [facility] [address] [id number] [address] [place] [address] 20 Mar, 2016 [facility] [address] [id number] [address] [place] [id number] 14 Mar, 2016 [facility] [address] [id number] [address] [place] [id number] 14 Mar, 2016 [facility] [address] [id number] [address] [place] [id number] 13 Mar, 2016 [facility] [address] [id number] [address] [place] [address] 12 Mar, 2016 [facility] [address] [id number] [address] [place] [address] 09 Mar, 2016 [facility] [address] [id number] [address] [place] [address] 06 Mar, 2016 [facility] [address] [id number] [address] [place] [address] 17 Feb, 2016 Other specified diseases of anus and rectum K62.89 [facility] [address] [id number] [address] [place] [address] 15 Feb, 2016 [facility] [address] [id number] [address] [place] [id number] 09 Feb, 2016 Dizziness R42 [facility] [address] [id number] [address] [place] [phone] 08 Feb, 2016 [facility] [address] [id number] [address] [place] [address] Jan, Polyneuropathy G62.9 [facility] [address] [id number] [address] [place] [address], [place] [address] Jan, Other specified diseases of anus and rectum K62.89 [facility] [address] [id number] [address] [place] [address], [place] [address] Jan, [facility] [address] [id number] [address] [place] [address], [place] [address] 16 Jan, 2016 [facility] [address] [id number] [address] [place] [address], [place] [address] Jan, [facility] [address] [id number] [address] [place] [address], [place] [address] Jan, Dizziness R42 [facility] [address] [id number] [address] [place] [address], [place] [address] Dec, [facility] [address] [id number] [address] [place] [address], [place] [address] Dec, [facility] [address] [id number] [address] [place] [address], [place] [address] Dec, [facility] [address] [id number] [address] [place] [address], [place] [address] Dec, Dizziness R42 [facility] [address] [id number] [address] [place] [address], [place] [id number] November, [facility] [address] [id number] [address] [place] [address], [place] [id number] Oct, [facility] [address] [id number] [address] [place] [id number] Oct, [facility] [address] [id number] [address] [place] [address], [place] [id number] Oct, [facility] [address] [id number] [address] [place] [address], [place] [id number] Oct, [facility] [address] [id number] [address] [place] [address], [place] [id number] Sep, [facility] [address] [id number] Sep, Primary insomnia F51.01 [facility] [address] [id number] Sep, Primary insomnia F51.01 [facility] [address] [id number] Sep, [facility] [address] [id number] Aug, [facility] [address] [id number] Aug, [facility] [address] [address] Aug, Primary insomnia F51.01 ; Mo od disorder F39 ; Nausea and vomiting, unspecified intactability, vomiting of unspecified type R11.2 and Diarrhea R19.7 [facility] [address] [id number] Aug, [facility] [address] [id number] Aug, Folliculitis L73.9 [facility] [address] [id number] Aug, [facility] [address] [id number] Aug, [facility] [address] [id number] Jul, Folliculitis L73.9 [facility] [address] [id number] Jul, [facility] [address] [id number] Jun, Folliculitis L73.9 [facility] [address] [id number] Jun, [facility] [address] [id number] [address] [place] [id number] May, Polyneuropathy G62.9 [facility] [address] [id number] [address] [place] [id number] May, Other specified diseases of anus and rectum K62.89 [facility] [address] [id number] [address] [place] [id number] May, [facility] [address] [id number] [address] [place] [id number] May, Primary insomnia F51.01 [facility] [address] [facility] [id number] [address] [place] [id number] May, [facility] [facility] [address] [facility] [id number] [address] [place] [address] May, [facility] [address] [facility] [id number] [address] [place] [address] Apr, Other specified diseases of anus and rectum K62.89 ; Chronic fatigue R53.82 ; Urinary tract infection, site not specified N39.0 and Enterococcus as the cause of diseases classified elsewhere B95.2 [facility] [address] [facility] [id number] [address] [place] [address] 16 Apr, 2015 [facility] [address] [facility] [id number] [address] [place] [address] Apr, [facility] [address] [facility] [id number] [address] [place] [address] Apr, 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 [facility] [address] [facility] [id number] [address] [place] [address] Apr, [facility] [address] [facility] [id number] [address] [place] [id number] Mar, [facility] [address] [facility] [id number] [address] [place] [address] Mar, [facility] [address] [id number] [address] [place] [address] 17 Mar, 2015 [facility] [address] [id number] [address] [place] [address] 14 Mar, 2015 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 [facility] [address] [id number] [address] [place] [address] 12 Mar, 2015 [facility] [address] [id number] [address] [place] [address] 11 Mar, 2015 [facility] [address] [id number] [address] [place] [address] 11 Mar, 2015 [facility] [address] [id number] [address] [place] [address] 10 Mar, 2015 [facility] [address] [id number] [address] [place] [address] Feb, [facility] [address] [id number] [address] [place] [address] Feb, [facility] [address] [id number] [address] [place] [address] Feb, [facility] [address] [id number] [address] [place] [id number] 30 Jan, 2015 [facility] [address] [id number] [address] [place] [address] Jan, Nausea 787.02 and Neuropathy 355.9 [facility] [address] [id number] [address] [place] [address] Jan, [facility] [address] [id number] [address] [place] [address] Jan, [facility] [address] [id number] [address] [place] [id number] 16 Jan, 2015 [facility] [address] [id number] [address] [place] [id number] Jan, Dental examination V72.2 [facility] [address] [id number] [address] [place] [address], [place] [address] Jan, [facility] [address] [id number] [address] [place] [id number] Dec, [facility] [address] [id number] [address] [place] [id number] Dec, [facility] [address] [id number] [address] [place] [address] Dec, Neuropathy 355.9 [facility] [address] [id number] [address] [place] [address], [place] [address] November, [facility] [address] [id number] [address] [place] [address] November, [facility] [address] [id number] [address] [place] [id number] November, [facility] [address] [id number] [address] [place] [address] Oct, [facility] [address] [id number] [address] [place] [address] Oct, [facility] [address] [id number] [address] [place] [address] Sep, [facility] [address] [id number] [address] [place] [id number] Sep, [facility] [address] [id number] [address] [place] [address] Sep, [facility] [address] [id number] [address] [place] [address] Sep, [facility] [address] [id number] [address] [place] [id number] Sep, [facility] [address] [id number] [address] [place] [address] Sep, [facility] [address] [id number] [address] [place] [address], [place] [address] Sep, [facility] [address] [id number] [address] [place] [address], [place] [address] Sep, [facility] [address] [id number] [address] [place] [address], [place] [address] Aug, 2014 [facility] [address] [id number] [address] [place] [address], [place] [address] Aug, 2014 [facility] [address] [id number] [address] [place] [address], [place] [address] Aug, 2014 [facility] [address] [id number] [address] [place] [address], [place] [address] Aug, 2014 [facility] [address] [id number] [address] [place] [address], [place] [address] Aug, 2014 [facility] [address] [id number] [address] [place] [address], [place] [address] Aug, 2014 [facility] [address] [id number] [address] [place] [address], [place] [address] Aug, [facility] [address] [id number] [address] [place] [address], [place] [address] Aug, [facility] [address] [id number] [address] [place] [address], [place] [address] Jul, [facility] [address] [id number] [address] [place] [address] Jul, [facility] [address] [id number] [address] [place] [address], [place] [address] Jun, [facility] [address] [id number] [address] [place] [address], [place] [address] Jun, [facility] [address] [id number] [address] [place] [address], [place] [address] Jun, [facility] [address] [id number] [address] [place] [address] Jun, [facility] [address] [id number] [address] [place] [address], [place] [address] Jun, [facility] [address] [id number] [address] [place] [address], [place] [address] Jun, [facility] [address] [id number] [address] [place] [address], [place] [address] Jun, [facility] [address] [id number] [address] [place] [address], [place] [address] Jun, [facility] [address] [id number] [address] [place] [address], [place] [address] Jun, [facility] [address] [id number] [address] [place] [address], [place] [address] Jun, [facility] [address] [id number] [address] [place] [address], [place] [address] Jun, [facility] [address] [id number] [address] [place] [address], [place] [address] May, [facility] [address] [id number] [address] [place] [address], [place] [address] May, [facility] [address] [id number] [address] [place] [address], [place] [address] May, [facility] [address] [id number] [address] [place] [address], [place] [address] May, [facility] [address] [id number] [address] [place] [address], [place] [address] May, [facility] [address] [id number] [address] [place] [address], [place] [address] May, [facility] [address] [id number] [address] [place] [address], [place] [address] May, [facility] [address] [id number] [address] [place] [address], [place] [address] May, [facility] [address] [id number] [address] [place] [address], [place] [address] May, [facility] [address] [id number] [address] [place] [address], [place] [address] Apr, [facility] [address] [id number] [address] [place] [address], [place] [address] Apr, [facility] [address] [id number] [address] [place] [address], [place] [address] Apr, [facility] [address] [id number] [address] [place] [address], [place] [address] Apr, [facility] [address] [id number] [address] [place] [address], [place] [address] Apr, [facility] [address] [id number] [address] [place] [address], [place] [address] Mar, [facility] [address] [id number] [address] [place] [address], [place] [address] Mar, [facility] [address] [id number] [address] [place] [address], [place] [address] Feb, [facility] [address] [id number] [address] [place] [address], [place] [address] Feb, [facility] [address] [id number] [address] [place] [address], [place] [address] Feb, [facility] [address] [id number] [address] [place] [address], [place] [address] Feb, [facility] [address] [id number] [address] [place] [address], [place] [address] Feb, [facility] [address] [id number] [address] [place] [address], [place] [address] Feb, [facility] [address] [id number] [address] [place] [address], [place] [address] Jan, [facility] [address] [id number] [address] [place] [address], [place] [address] Jan, [facility] [address] [id number] [address] [address] Jan, [facility] [address] [id number] [address] [address] Jan, [facility] [address] [id number] [address] [address] Jan, [facility] [address] [id number] [address] [address] Jan, [facility] [address] [id number] [address] [address] Jan, [facility] [address] [id number] [address] [place] [address], [place] [address] Jan, [facility] [address] [id number] [address] [place] [address], [place] [address] Jan, [facility] [address] [id number] [address] [place] [address], [place] [address] Jan, [facility] [address] [id number] [address] [place] [address], [place] [address] Jan, [facility] [address] [id number] [address] [place] [address], [place] [address] Dec, [facility] [address] [id number] [address] [place] [address], [place] [address] Dec, [facility] [address] [id number] [address] [place] [address], [place] [address] Dec, [facility] [address] [id number] [address] [place] [address], [place] [address] Dec, [facility] [address] [id number] [address] [place] [address], [place] [address] Dec, [facility] [address] [id number] [address] [place] [address], [place] [address] Dec, [facility] [address] [id number] [address] [place] [address], [place] [address] November, [facility] [address] [id number] [address] [place] [address], [place] [address] November, [facility] [address] [id number] [address] [place] [address], [place] [address] November, [facility] [address] [id number] [address] [place] [address], [place] [address] November, [facility] [address] [id number] [address] [place] [address], [place] [address] November, [facility] [address] [id number] [address] [place] [address], [place] [address] November, [facility] [address] [id number] [address] [place] [address], [place] [address] Oct, [facility] [address] [id number] [address] [place] [address], [place] [address] Oct, [facility] [address] [id number] [address] [place] [address], [place] [address] Oct, [facility] [address] [id number] [address] [place] [address], [place] [address] Oct, [facility] [address] [id number] [address] [place] [address], [place] [address] Sep, [facility] [address] [id number] [address] [place] [address], [place] [address] 17 Sep, 2013 [facility] [address] [id number] [address] [place] [address], [place] [address] Sep, [facility] [address] [id number] [address] [place] [address], [place] [address] Sep, [facility] [address] [id number] [address] [place] [address], [place] [address] Sep, [facility] [address] [id number] [address] [place] [address], [place] [address] Aug, [facility] [address] [id number] [address] [place] [address], [place] [address] Aug, [facility] [address] [id number] [address] [place] [address], [place] [address] Aug, [facility] [address] [id number] [address] [place] [address], [place] [address] Aug, [facility] [address] [id number] [address] [place] [address], [place] [address] Aug, [facility] [id number] May, [facility] [address] [id number] [address] [place] [address], [place] [address] May, [facility] [address] [id number] [address] [place] [address], [place] [address] May, [facility] [address] [id number] [address] [place] [address], [place] [address] May, [facility] [address] [id number] [address] [place] [address], [place] [address] May, [facility] [address] [id number] [address] [place] [address], [place] [address] Apr, [facility] [address] [id number] [address] [place] [address], [place] [address] Apr, [facility] [address] [id number] [address] [place] [address], [place] [address] Apr, [facility] [address] [id number] [address] [place] [address], [place] [address] Apr, [facility] [address] [id number] [address] [place] [address], [place] [address] Apr, [facility] [address] [id number] [address] [place] [address], [place] [address] Apr, [facility] [address] [id number] [address] [place] [address], [place] [address] Apr, [facility] [address] [id number] [address] [place] [address], [place] [address] 28 Mar, 2013 [facility] [address] [id number] [address] [place] [address], [place] [address] Mar, [facility] [address] [id number] [address] [place] [address], [place] [address] 24 Mar, 2013 [facility] [address] [id number] [address] [place] [address], [place] [address] 16 Mar, 2013 [facility] [address] [id number] [address] [place] [address], [place] [address] Mar, [facility] [address] [id number] [address] [place] [address], [place] [address] Mar, [facility] [address] [id number] [address] [place] [address], [place] [address] Feb, [facility] [address] [id number] [address] [place] [address], [place] [address] Feb, [facility] [address] [id number] [address] [place] [address], [place] [address] Feb, [facility] [address] [id number] [address] [place] [address], [place] [address] Feb, [facility] [address] [id number] [address] [place] [address], [place] [address] Feb, [facility] [address] [id number] [address] [place] [address], [place] [address] Feb, [facility] [address] [id number] [address] [place] [address], [place] [address] Jan, [facility] [address] [id number] [address] [place] [address], [place] [address] Dec, [facility] [address] [id number] [address] [place] [address], [place] [address] Dec, [facility] [address] [id number] [address] [place] [address], [place] [address] 20 Dec, 2012 [facility] [address] [id number] [address] [place] [address], [place] [address] Dec, [facility] [address] [id number] [address] [place] [address], [place] [address] 19 Dec, 2012 [facility] [address] [id number] [address] [place] [address], [place] [address] 18 Dec, 2012 [facility] [address] [id number] [address] [place] [address], [place] [address] 17 Dec, 2012 [facility] [address] [id number] [address] [place] [address], [place] [address] Dec, [facility] [address] [id number] [address] [place] [address], [place] [address] 06 Dec, 2012 [facility] [address] [id number] [address] [place] [address], [place] [id number] November, [facility] [address] [id number] [address] [place] [address], [place] [id number] November, [facility] [address] [id number] [address] [place] [address], [place] [id number] Oct, [facility] [address] [id number] [address] [place] [address], [place] [id number] Sep, [facility] [address] [id number] [address] [place] [address], [place] [id number] Sep, [facility] [address] [id number] [address] [place] [address], [place] [id number] 15 Sep, 2012 [facility] [address] [id number] [address] [place] [address], [place] [id number] 11 Sep, 2012 [facility] [address] [id number] [address] [place] [address], [place] [id number] Aug, [facility] [address] [id number] [address] [place] [address], [place] [address] Aug, [facility] [address] [facility] [id number] [address] [place] [id number] Jul, [facility] [address] [facility] [id number] [address] [place] [id number] Jul, [facility] [address] [facility] [id number] [address] [place] [id number] Jul, [facility] [address] [facility] [id number] [address] [place] [id number] Sep, [facility] [address] [facility] [id number] [address] [place] [id number] Sep, [facility] [address] [facility] [id number] [address] [place] [id number] Sep, IMMUNIZATIONS No Known Immunizations SOCIAL HISTORY [...] Dehydration -[facility] 01/01/17 Hospitalization History [facility]- UTI/Sepsis 01/18/2018 Hospitalization History [facility] - infection 4 days 05/2018
[2020-01-14] MEDS ORDERED: PROMETHAZINE INJ 25 MG/ML (PHENERGAN) AMP IVP STA (23:05)
[2020-01-14] MEDS ORDERED: fentaNYL INJECTION 100 MCG/2 ML AMP IVP STA (23:05)
[2020-01-14] MEDS ORDERED: LACTATED RINGERS 1,000 ML IV ONE (23:05)
--- OUTSIDE RECORDS SUMMARY | 2020-01-14 23:05 | XMS REPORT ---
Author Author Melvin BENTLEY Organization [facility] Address [address] [place] [address] Care Team Providers Care Groundskeeper Supervisor Name Role Phone LINDA BENTLEY Unavailable PROBLEMS Type Condition ICD9-CM Code [id number] Code Onset Dates Condition S tatus SNOMED Code Problem Incontinence of feces, unspecified fecal incontinence type R15.9 Active 87026068 Problem Primary insomnia F51.01 Active 193 296998 Problem Hydronephrosis with ureteral stricture, not else where classified N13.1 Active 55440325 Problem Chronic fatigue, unspecified R53.82 A ctive 870797252 Problem Hypertension, benign I10 Active 29911674 Problem Mood disorder F39 Active 580207 05 Problem Neuropathy G62.9 Active 856372225 Problem Chronic pain syndrome G89.4 Active 268781191 Problem Abdominal pain, left lower quadrant R10.32 Active 520679964 Problem 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 Active 778289379 Problem 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 566734354 Problem Anxiety F41.9 Active 47938971 Problem Polyneuropathy G62.9 Active 32173 000 Problem Malignant neoplasm of colon, unspecified part of colon C18.9 Active 527655289 Problem Attention to urostomy Z43.6 Active 438825767 ALLERGIES No Information ENCOUNTERS Encounter Location Date Diagnosis [facility] [address] [id number] [address] [place] [phone] Mar, [facility] [address] [id number] [address] [place] [phone] Feb, Neuropathy G62.9 and Encount er for Medicare annual wellness exam Z00.00 [facility] [address] [id number] [address] [place] [phone] Feb, Primary insomnia F51.01 and High risk medication use Z79.899 [facility] [address] [id number] [address] [place] [phone] Jan, [facility] [address] [id number] [address] [place] [phone] Jan, Neuropathy G62.9 [facility] [address] [id number] [address] [place] [phone] Dec, [facility] [address] [id number] [address] [place] [phone] Dec, Encounter for Medicare annua l wellness exam Z00.00 and Neuropathy G62.9 [facility] [address] [id number] [address] [place] [phone] November, [facility] [address] [id number] [address] [place] [phone] November, Encounter for Medicare annua l wellness exam Z00.00 ; 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 ; Mood disorder F39 ; Chronic fatigue, unspecified R53.82 and Neuropathy G62.9 [facility] [address] [id number] [address] [place] [phone] November, Neuropathy G62.9 [facility] [address] [id number] [address] [place] [phone] Oct, Neuropathy G62.9 [facility] [address] [id number] [address] [place] [phone] Oct, Hypertension, benign I10 and Anxiety F41.9 [facility] [address] [id number] [address] [place] [phone] Oct, [facility] [address] [id number] [address] [place] [phone] Oct, [facility] [address] [id number] [address] [place] [phone] Oct, [facility] [address] [id number] [address] [place] [phone] Oct, Neuropathy G62.9 [facility] [address] [id number] [address] [place] [phone] Sep, [facility] [address] [id number] [address] [place] [phone] Sep, Neuropathy G62.9 [facility] [address] [id number] [address] [place] [phone] Sep, [facility] [address] [id number] [address] [place] [id number] Sep, H/O malignant carcinoid tumo r of rectum Z85.040 and Primary insomnia F51.01 [facility] [address] [id number] [address] [place] [phone] Aug, [facility] [address] [id number] [address] [place] [phone] Aug, Neuropathy G62.9 [facility] [address] [id number] [address] [place] [phone] Aug, [facility] [address] [id number] [address] [place] [phone] Jul, Non-recurrent acute suppurat francine otitis media of left ear without spontaneous rupture of tympanic membrane H66.002 [facility] [address] [id number] [address] [place] [phone] Jul, Neuropathy G62.9 [facility] [address] [id number] [address] [place] [phone] Jun, [facility] [address] [id number] [address] [place] [phone] Jun, [facility] [address] [id number] [address] [place] [phone] Jun, Neuropathy G62.9 [facility] [address] [id number] [address] [place] [phone] Jun, [facility] [address] [place] [id number] [address] [place] [phone] Jun, [facility] [address] [phone] Jun, Lumbar neuritis M54.16 [facility] [address] [address] [id number] [address] [place] [phone] May, Neuropathy G62.9 [facility] [address] [phone] May, [facility] [address] [address] May, Neuropathy G62.9 and Hyperte nsion, benign I10 [place] [address] [address] Apr, Polyneuropathy G62.9 and Hyp ertension, benign I10 [facility] [address] [phone] 17 Mar, 2018 Chronic pain syndrome G89.4 and Hypertension, benign I10 [place] [address] [phone] Mar, Polyneuropathy G62.9 and Hyp ertension, benign I10 [facility] [address] [address] Feb, [facility] [address] [address] Feb, Hypertension, benign I10 [facility] [address] [place] [place] [id number] [place] [phone] Feb, Hypertension, benign I10 ; P olyneuropathy G62.9 and Primary insomnia F51.01 [facility] [address] [id number] [address] [place] [phone] Jan, Hypertension, benign I10 and Polyneuropathy G62.9 [facility] [address] [place] [id number] [address] [place] [phone] Jan, Hypertension, benign I10 and Neuropathy G62.9 [facility] [address] [id number] [address] [place] [phone] Jan, [facility] [address] [id number] [address] [place] [phone] Dec, Polyneuropathy G62.9 [facility] [address] [id number] [address] [place] [phone] Dec, Mood disorder F39 [facility] [address] [id number] [address] [place] [phone] November, Polyneuropathy G62.9 [facility] [address] [id number] [address] [place] [phone] November, Medicare annual wellness vis it, initial Z00.00 [facility] [address] [id number] [address] [place] [phone] November, Mood disorder F39 [facility] [address] [id number] [address] [place] [phone] Oct, Polyneuropathy G62.9 [facility] [address] [id number] [address] [place] [phone] Oct, [facility] [address] [id number] [address] [place] [phone] Oct, [facility] [address] [id number] [address] [place] [phone] Oct, Mood disorder F39 ; Attentio n to urostomy Z43.6 ; Chronic pain syndrome G89.4 and Polyneuropathy G62.9 [facility] [address] [id number] [address] [place] [phone] Sep, Polyneuropathy G62.9 [facility] [address] [id number] [address] [place] [phone] Sep, [facility] [address] [id number] [address] [place] [phone] Sep, Polyneuropathy G62.9 [facility] [address] [id number] [address] [place] [phone] Aug, Polyneuropathy G62.9 [facility] [address] [id number] [address] [place] [phone] Aug, Malignant neoplasm of colon, unspecified part of colon C18.9 and Polyneuropathy G62.9 [facility] [address] [id number] [address] [place] [phone] Aug, Neuropathy G62.9 and Polyneu ropathy G62.9 [facility] [address] [id number] [address] [place] [phone] Jul, Encounter for drug screening Z02.83 [facility] [address] [id number] [address] [place] [phone] Jul, Polyneuropathy G62.9 [facility] [address] [id number] [address] [place] [phone] Jul, [facility] [address] [id number] [address] [place] [phone] Jul, Neuropathy G62.9 and Anxiety F41.9 [facility] [address] [id number] [address] [place] [phone] Jul, [facility] [address] [id number] [address] [place] [phone] Jul, [facility] [address] [id number] [address] [place] [phone] Jul, [facility] [address] [id number] [address] [place] [phone] Jul, Polyneuropathy G62.9 [facility] [address] [id number] [address] [place] [phone] Jul, [facility] [address] [id number] [address] [place] [phone] Jun, [facility] [address] [id number] [address] [place] [phone] Jun, [facility] [address] [id number] [address] [place] [phone] Jun, [facility] [address] [id number] [address] [place] [phone] 07 Jun, 2017 Encounter for dental examina tion Z01.20 [facility] [address] [id number] [address] [place] [phone] Jun, Polyneuropathy G62.9 and Anx iety F41.9 [facility] [address] [id number] [address] [place] [phone] Jun, [facility] [address] [id number] [place] [address] May, Dental examination Z01.20 [facility] [address] [id number] [address] [place] [phone] May, Polyneuropathy G62.9 [facility] [address] [id number] [address] [place] [phone] Apr, Polyneuropathy G62.9 [facility] [address] [place] [id number] [address] [place] [phone] Apr, Polyneuropathy G62.9 [facility] [address] [id number] [address] [place] [phone] Apr, Hypertension, benign I10 ; P olyneuropathy G62.9 and Anxiety F41.9 [facility] [address] [id number] [address] [place] [phone] Apr, Primary insomnia F51.01 and Polyneuropathy G62.9 [facility] [address] [id number] [address] [place] [phone] Apr, Primary insomnia F51.01 and Polyneuropathy G62.9 [facility] [address] [id number] [address] [place] [phone] Mar, Primary insomnia F51.01 [facility] [address] [id number] [address] [place] [phone] Mar, [facility] [address] [id number] [address] [place] [phone] Mar, Polyneuropathy G62.9 [facility] [address] [id number] [address] [place] [phone] Feb, Primary insomnia F51.01 [facility] [address] [id number] [address] [place] [phone] Feb, [facility] [address] [id number] [address] [place] [phone] Feb, [facility] [address] [id number] [address] [place] [phone] Feb, Polyneuropathy G62.9 [facility] [address] [id number] [address] [place] [address] Feb, Primary insomnia F51.01 [facility] [address] [id number] [address] [place] [phone] Jan, [facility] [address] [id number] [address] [place] [phone] Jan, [facility] [address] [id number] [address] [place] [phone] Dec, [facility] [address] [id number] [address] [place] [phone] Dec, Primary insomnia F51.01 [facility] [address] [id number] [address] [place] [phone] Dec, Primary insomnia F51.01 [facility] [address] [id number] [address] [place] [phone] Dec, [facility] [address] [id number] [address] [place] [phone] Dec, [facility] [address] [id number] [address] [place] [phone] Dec, [facility] [address] [id number] [address] [place] [phone] Dec, [facility] [address] [id number] [address] [place] [phone] November, Primary insomnia F51.01 and Polyneuropathy G62.9 [facility] [address] [id number] [address] [place] [phone] November, [facility] [address] [id number] [address] [place] [phone] November, Abdominal pain, left lower q uadrant R10.32 [facility] [address] [id number] [address] [place] [phone] November, [facility] [address] [id number] [address] [place] [phone] Oct, [facility] [address] [id number] [address] [place] [phone] Oct, Abdominal pain, left lower q uadrant R10.32 ; 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 and Neuropathy G62.9 [facility] [address] [id number] [address] [place] [phone] Oct, [facility] [address] [id number] [address] [place] [phone] Sep, [facility] [id number] [place] [id number] Sep, [facility] [address] [id number] [address] [place] [phone] Sep, [facility] [address] [id number] [address] [place] [phone] Aug, [facility] [address] [id number] [address] [place] [phone] Aug, [facility] [address] [id number] [address] [place] [phone] Aug, Abdominal pain, left lower q uadrant R10.32 ; Neuropathy G62.9 and Anxiety F41.9 [facility] [address] [place] [address] Jul, [facility] [address] [id number] [address] [place] [phone] Jul, [facility] [address] [id number] [address] [place] [phone] Jul, [facility] [address] [id number] [address] [place] [id number] Jul, [facility] [address] [id number] [address] [place] [phone] Jul, [facility] [address] [id number] [address] [place] [phone] Jun, [facility] [address] [id number] [address] [place] [phone] May, [facility] [address] [id number] [address] [place] [phone] May, [facility] [address] [id number] [address] [place] [id number] Apr, [facility] [address] [id number] [address] [place] [phone] Apr, Muscle spasms of both lower extremities M62.838 and Cellulitis, unspecified cellulitis site L03.90 [facility] [address] [id number] [address] [place] [phone] Apr, [facility] [address] [id number] [address] [place] [phone] 23 Mar, 2016 Generalized abdominal pain R 10.84 [facility] [address] [id number] [address] [place] [phone] 20 Mar, 2016 [facility] [address] [id number] [address] [place] [phone] 14 Mar, 2015 [facility] [address] [id number] [address] [place] [phone] 14 Mar, 2015 [facility] [address] [id number] [address] [place] [id number] 13 Mar, 2015 [facility] [address] [id number] [address] [place] [phone] 12 Mar, 2016 [facility] [address] [id number] [address] [place] [phone] 09 Mar, 2016 [facility] [address] [id number] [address] [place] [phone] 06 Mar, 2016 [facility] [address] [id number] [address] [place] [id number] Feb, Other specified diseases of anus and rectum K62.89 [facility] [address] [id number] [address] [place] [phone] Feb, [facility] [address] [id number] [address] [place] [phone] Feb, Dizziness R42 [facility] [address] [id number] [address] [place] [phone] Feb, [facility] [address] [id number] [address] [place] [phone] Jan, Polyneuropathy G62.9 [facility] [address] [id number] [address] [place] [phone] Jan, Other specified diseases of anus and rectum K62.89 [facility] [address] [id number] [address] [place] [phone] Jan, [facility] [address] [id number] [address] [place] [address], [place] [phone] 16 Jan, 2016 [facility] [address] [id number] [address] [place] [address], [place] [address] Jan, [facility] [address] [id number] [address] [place] [address], [place] [address] Jan, Dizziness R42 [facility] [address] [id number] [address] [place] [address], [place] [address] Dec, [facility] [address] [id number] [address] [place] [address], [place] [address] Dec, [facility] [address] [id number] [address] [place] [address], [place] [address] Dec, [facility] [address] [id number] [address] [place] [address], [place] [phone] Dec, Dizziness R42 [facility] [address] [id number] [address] [place] [address], [place] [phone] November, [facility] [address] [id number] [address] [place] [address], [place] [address] Oct, [facility] [address] [id number] [address] [place] [address], [place] [phone] Oct, [facility] [address] [id number] [address] [place] [address], [place] [phone] Oct, [facility] [address] [id number] [address] [place] [address], [place] [id number] Oct, [facility] [address] [id number] [address] [place] [address], [place] [id number] Sep, [facility] [address] [id number] [address] [place] [address], [place] [id number] Sep, Primary insomnia F51.01 [facility] [address] [id number] [address] [place] [address], [place] [address] Sep, Primary insomnia F51.01 [facility] [address] [id number] Sep, [facility] [address] [id number] Aug, [facility] [address] [id number] Aug, [facility] [address] [id number] Aug, Primary insomnia F51.01 ; Mo od disorder F39 ; Nausea and vomiting, unspecified intactability, vomiting of unspecified type R11.2 and Diarrhea R19.7 [facility] [address] [id number] Aug, [facility] [address] [id number] Aug, Folliculitis L73.9 [facility] [address] [id number] Aug, [facility] [address] [id number] Aug, [facility] [address] [address] Jul, Folliculitis L73.9 [facility] [address] [id number] Jul, [facility] [address] [id number] Jun, Folliculitis L73.9 [facility] [address] [id number] Jun, [facility] [address] [id number] May, Polyneuropathy G62.9 [facility] [address] [place] [id number] [address] [place] [id number] May, Other specified diseases of anus and rectum K62.89 [facility] [address] [id number] [address] [place] [id number] May, [facility] [address] [facility] [id number] [address] [place] [id number] May, Primary insomnia F51.01 [facility] [address] [id number] [address] [place] [id number] May, [facility] [address] [id number] [address] [place] [id number] May, [facility] [address] [facility] [id number] [address] [place] [id number] Apr, Other specified diseases of anus and rectum K62.89 ; Chronic fatigue R53.82 ; Urinary tract infection, site not specified N39.0 and Enterococcus as the cause of diseases classified elsewhere B95.2 [facility] [address] [id number] [address] [place] [id number] 16 Apr, 2015 [facility] [address] [id number] [address] [place] [id number] 15 Apr, 2015 [facility] [address] [facility] [id number] [address] [place] [id number] 14 Apr, 2015 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 [facility] [address] [id number] [address] [place] [id number] 05 Apr, 2015 [facility] [facility] [address] [id number] [address] [place] [id number] Mar, [facility] [address] [id number] [address] [place] [id number] 23 Mar, 2015 [facility] [address] [facility] [id number] [address] [place] [id number] 17 Mar, 2015 [facility] [address] [id number] [address] [place] [id number] 14 Mar, 2015 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 [facility] [address] [id number] [address] [place] [id number] 12 Mar, 2015 [facility] [address] [id number] [address] [place] [id number] Mar, [facility] [address] [id number] [address] [place] [id number] Mar, [facility] [address] [id number] [address] [place] [phone] Mar, [facility] [address] [id number] [address] [place] [id number] Feb, [facility] [address] [id number] [address] [place] [id number] Feb, [facility] [address] [id number] [address] [place] [phone] Feb, [facility] [address] [id number] [address] [place] [phone] Jan, [facility] [address] [id number] [address] [place] [phone] Jan, Nausea 787.02 and Neuropathy 355.9 [facility] [address] [id number] [address] [place] [phone] Jan, [facility] [address] [id number] [address] [place] [id number] Jan, [facility] [address] [id number] [address] [place] [id number] Jan, [facility] [address] [id number] [address] [place] [id number] Jan, Dental examination V72.2 [facility] [address] [id number] [address] [place] [phone] Jan, [facility] [address] [id number] [address] [place] [phone] Dec, [facility] [address] [id number] [address] [place] [address], [place] [id number] Dec, [facility] [address] [id number] [address] [place] [address], [place] [address] Dec, Neuropathy 355.9 [facility] [address] [id number] [address] [place] [address], [place] [address] November, [facility] [address] [id number] [address] [place] [address], [place] [id number] November, [facility] [address] [id number] [address] [place] [address], [place] [address] November, [facility] [address] [id number] [address] [place] [address], [place] [id number] Oct, [facility] [address] [id number] [address] [place] [address], [place] [id number] Oct, [facility] [address] [id number] [address] [place] [address], [place] [address] Sep, [facility] [address] [id number] [address] [place] [address], [place] [address] Sep, [facility] [address] [id number] [address] [place] [address], [place] [address] Sep, [facility] [address] [id number] [address] [place] [address], [place] [id number] Sep, [facility] [address] [id number] [address] [place] [id number] Sep, [facility] [address] [id number] [address] [place] [address], [place] [id number] Sep, [facility] [address] [id number] [address] [place] [address], [place] [address] Sep, [facility] [address] [id number] [address] [place] [id number] Sep, [facility] [address] [id number] [address] [place] [address], [place] [address] Aug, 2014 [facility] [address] [id number] [address] [place] [address], [place] [id number] Aug, 2014 [facility] [address] [id number] [address] [place] [address], [place] [address] Aug, 2014 [facility] [address] [id number] [address] [place] [address], [place] [address] Aug, 2014 [facility] [address] [id number] [address] [place] [address], [place] [address] Aug, [facility] [address] [id number] [address] [place] [address], [place] [id number] Aug, 2014 [facility] [address] [id number] [address] [place] [address], [place] [id number] Aug, [facility] [address] [id number] [address] [place] [address], [place] [address] Aug, [facility] [address] [id number] [address] [place] [address], [place] [address] Jul, [facility] [address] [id number] [address] [place] [address], [place] [address] Jul, [facility] [address] [id number] [address] [place] [address], [place] [address] Jun, [facility] [address] [id number] [address] [place] [address], [place] [address] Jun, [facility] [address] [id number] [address] [place] [address], [place] [address] Jun, [facility] [address] [id number] [address] [place] [address], [place] [address] Jun, [facility] [address] [id number] [address] [place] [address], [place] [address] Jun, [facility] [address] [id number] [address] [place] [address], [place] [address] Jun, [facility] [address] [id number] [address] [place] [address], [place] [address] Jun, [facility] [address] [id number] [address] [place] [address], [place] [address] Jun, [facility] [address] [id number] [address] [place] [address], [place] [address] Jun, [facility] [address] [id number] [address] [place] [address], [place] [address] Jun, [facility] [address] [id number] [address] [place] [address], [place] [address] Jun, [facility] [address] [id number] [address] [place] [address], [place] [address] May, [facility] [address] [id number] [address] [place] [address], [place] [address] May, [facility] [address] [id number] [address] [place] [address], [place] [address] May, [facility] [address] [id number] [address] [place] [address], [place] [address] May, [facility] [address] [id number] [address] [place] [address], [place] [address] May, [facility] [address] [id number] [address] [place] [address], [place] [address] May, [facility] [address] [id number] [address] [place] [address], [place] [address] May, [facility] [address] [id number] [address] [place] [address], [place] [address] May, [facility] [address] [id number] [address] [place] [address], [place] [address] May, [facility] [address] [id number] [address] [place] [address], [place] [address] Apr, [facility] [address] [id number] [address] [place] [address], [place] [address] Apr, [facility] [address] [id number] [address] [place] [address], [place] [address] Apr, [facility] [address] [id number] [address] [place] [address], [place] [address] Apr, [facility] [address] [id number] [address] [place] [address], [place] [address] Apr, [facility] [address] [id number] [address] [place] [address], [place] [address] Mar, [facility] [address] [id number] [address] [place] [address], [place] [address] Mar, [facility] [address] [id number] [address] [place] [address], [place] [address] Feb, [facility] [address] [id number] [address] [place] [address], [place] [address] Feb, [facility] [address] [id number] [address] [place] [address], [place] [address] Feb, [facility] [address] [id number] [address] [place] [address], [place] [address] Feb, [facility] [address] [id number] [address] [place] [address], [place] [id number] Feb, [facility] [address] [id number] [address] [place] [address], [place] [address] Feb, [facility] [address] [id number] [address] [place] [address], [place] [id number] Jan, [facility] [address] [id number] [address] [place] [address], [place] [address] Jan, [facility] [address] [id number] [address] [place] [address], [place] [address] Jan, [facility] [address] [id number] [address] [place] [address], [place] [address] Jan, [facility] [address] [id number] [facility] [place] [address] Jan, [facility] [address] [id number] [facility] [place] [address] Jan, [facility] [address] [id number] [facility] [place] [address] Jan, [facility] [address] [id number] [address] [place] [address], [place] [address] Jan, [facility] [address] [id number] [address] [place] [address], [place] [address] Jan, [facility] [address] [id number] [address] [place] [address], [place] [address] Jan, [facility] [address] [id number] [address] [place] [address], [place] [address] Jan, [facility] [address] [id number] [address] [place] [address], [place] [address] Dec, [facility] [address] [id number] [address] [place] [address], [place] [address] Dec, [facility] [address] [id number] [address] [place] [address], [place] [id number] Dec, [facility] [address] [id number] [address] [place] [address], [place] [address] Dec, [facility] [address] [id number] [address] [place] [address], [place] [address] Dec, [facility] [address] [id number] [address] [place] [address], [place] [address] Dec, [facility] [address] [id number] [address] [place] [address], [place] [address] November, [facility] [address] [id number] [address] [place] [address], [place] [address] November, [facility] [address] [id number] [facility] [place] [address] 15 Nov, 2013 [facility] [address] [id number] [address] [place] [address], [place] [address] November, [facility] [address] [id number] [address] [place] [address], [place] [address] November, [facility] [address] [id number] [address] [place] [address], [place] [address] November, [facility] [address] [id number] [address] [place] [address], [place] [address] Oct, [facility] [address] [id number] [address] [place] [address], [place] [address] Oct, [facility] [address] [id number] [address] [place] [address], [place] [address] Oct, [facility] [address] [id number] [address] [place] [address], [place] [address] Oct, [facility] [address] [id number] [address] [place] [address], [place] [address] 17 Sep, 2013 [facility] [address] [id number] [address] [place] [address], [place] [address] 17 Sep, 2013 [facility] [address] [id number] [address] [place] [address], [place] [address] Sep, [facility] [address] [id number] [address] [place] [address], [place] [address] Sep, [facility] [address] [id number] [address] [place] [address], [place] [address] Sep, [facility] [address] [id number] [address] [place] [address], [place] [address] Aug, [facility] [address] [id number] [address] [place] [address], [place] [address] Aug, [facility] [address] [id number] [address] [place] [address], [place] [id number] Aug, [facility] [address] [id number] [address] [place] [address], [place] [address] Aug, [facility] [address] [id number] [address] [place] [address], [place] [address] Aug, [facility] [place] [id number] May, [facility] [address] [id number] [address] [place] [address], [place] [address] May, [facility] [address] [id number] [address] [place] [address], [place] [address] May, [facility] [address] [id number] [address] [place] [address], [place] [id number] May, [facility] [address] [id number] [address] [place] [address], [place] [address] May, [facility] [address] [id number] [address] [place] [address], [place] [address] Apr, [facility] [address] [id number] [address] [place] [address], [place] [address] Apr, [facility] [address] [id number] [address] [place] [address], [place] [address] Apr, [facility] [address] [id number] [address] [place] [id number] Apr, [facility] [address] [id number] [address] [place] [address] Apr, [facility] [address] [id number] [address] [place] [address], [place] [address] Apr, [facility] [address] [id number] [address] [place] [address], [place] [address] Apr, [facility] [address] [id number] [address] [place] [address] Mar, [facility] [address] [id number] [address] [place] [id number] 25 Mar, 2013 [facility] [address] [id number] [address] [place] [address], [place] [id number] 24 Mar, 2013 [facility] [address] [id number] [address] [place] [address], [place] [address] 16 Mar, 2013 [facility] [address] [id number] [address] [place] [address], [place] [address] Mar, [facility] [address] [id number] [address] [place] [address], [place] [address] 06 Mar, 2013 [facility] [address] [id number] [address] [place] [address], [place] [address] Feb, [facility] [address] [id number] [address] [place] [address], [place] [address] Feb, [facility] [address] [id number] [address] [place] [address], [place] [address] Feb, [facility] [address] [id number] [address] [place] [address], [place] [address] Feb, [facility] [address] [id number] [address] [place] [address], [place] [address] Feb, [facility] [address] [id number] [address] [place] [address], [place] [id number] Feb, [facility] [address] [id number] [address] [place] [address], [place] [address] Jan, [facility] [address] [id number] [address] [place] [address], [place] [address] Dec, [facility] [address] [id number] [address] [place] [address], [place] [address] Dec, [facility] [address] [id number] [address] [place] [address], [place] [address] Dec, [facility] [address] [id number] [address] [place] [address], [place] [id number] Dec, [facility] [address] [id number] [address] [place] [address], [place] [id number] 19 Dec, 2012 [facility] [address] [id number] [address] [place] [address], [place] [address] 18 Dec, 2012 [facility] [address] [id number] [address] [place] [address], [place] [address] 17 Dec, 2012 [facility] [address] [id number] [address] [place] [address], [place] [address] Dec, [facility] [address] [id number] [address] [place] [address], [place] [address] Dec, [facility] [address] [id number] [address] [place] [address], [place] [address] November, [facility] [address] [id number] [address] [place] [address], [place] [address] November, [facility] [address] [id number] [address] [place] [address], [place] [address] Oct, [facility] [address] [id number] [address] [place] [address], [place] [address] Sep, [facility] [address] [id number] [address] [place] [address], [place] [address] Sep, [facility] [address] [id number] [address] [place] [address], [place] [address] Sep, [facility] [address] [id number] [address] [place] [address], [place] [address] Sep, [facility] [address] [id number] [address] [place] [address], [place] [id number] Aug, [facility] [address] [id number] [address] [place] [address], [place] [id number] Aug, [facility] [address] [id number] [address] [place] [address], [place] [id number] Jul, [facility] [address] [id number] [address] [place] [address], [place] [id number] Jul, [facility] [address] [id number] [address] [place] [id number] Jul, [facility] [address] [id number] [address] [place] [id number] 22 Sep, 2011 [facility] [address] [id number] [address] [place] [id number] Sep, [facility] [address] [id number] [address] [place] [id number] Sep, IMMUNIZATIONS No Known Immunizations SOCIAL HISTORY Never Assessed REASON FOR VISIT PLAN OF CARE VITAL SIGNS Height 67 in 2014-06-27 Weight 176 lbs 2014-06-27 Temperature 97.2 degrees Fahrenheit 2014-06-27 Heart Rate 80 bpm 2014-06-27 Respiratory Rate 18 2014-06-27 Blood pressure systolic 122 mmHg 2014-06-27 Blood pressure diastolic 82 mmHg 2014-06-27 MEDICATIONS Unknown Medications RESULTS No Results PROCEDURES [...] bowel obstruction, Dehydration -[facility] 01/01/17 Hospitalization History [facility]- UTI/Sepsis 01/18/[address] [facility] - infection 4 days 05/2018
--- OUTSIDE RECORDS SUMMARY | 2020-01-14 23:05 | XMS REPORT ---
Author Author Melvin BENTLEY Organization [facility] Address [address] [place] [address] Care Team Providers Care [employer] Estimator Name Role Phone LINDA BENTLEY Unavailable PROBLEMS Type Condition ICD9-CM Code ZZE67-JK Code Onset Dates Condition S tatus SNOMED Code Problem Incontinence of feces, unspecified fecal incontinence type R15.9 Active 23857806 Problem Primary insomnia F51.01 Active 193 826882 Problem Hydronephrosis with ureteral stricture, not else where classified N13.1 Active 38667051 Problem Chronic fatigue, unspecified R53.82 A ctive 542638589 Problem Hypertension, benign I10 Active 05534374 Problem Mood disorder F39 Active 248857 05 Problem Neuropathy G62.9 Active 747728864 Problem Chronic pain syndrome G89.4 Active 417934857 Problem Abdominal pain, left lower quadrant R10.32 Active 154919007 Problem 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 Active 048143204 Problem 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 233533563 Problem Anxiety F41.9 Active 31514697 Problem Polyneuropathy G62.9 Active 11229 000 Problem Malignant neoplasm of colon, unspecified part of colon C18.9 Active 922331523 Problem Attention to urostomy Z43.6 Active 231037370 ALLERGIES No Information ENCOUNTERS Encounter Location Date Diagnosis [facility] [address] [facility] [id number] [address] [place] [phone] Mar, [facility] [address] [facility] [id number] [address] [place] [phone] Feb, Neuropathy G62.9 and Encount er for Medicare annual wellness exam Z00.00 [facility] [address] [facility] [id number] [address] [place] [phone] Feb, Primary insomnia F51.01 and High risk medication use Z79.899 [facility] [address] [id number] [address] [place] [phone] Jan, [facility] [address] [id number] [address] [place] [phone] Jan, Neuropathy G62.9 [facility] [address] [id number] [address] [place] [id number] Dec, [facility] [address] [id number] [address] [place] [phone] Dec, Encounter for Medicare annua l wellness exam Z00.00 and Neuropathy G62.9 [facility] [address] [id number] [address] [place] [phone] November, [facility] [address] [id number] [address] [place] [id number] November, Encounter for Medicare annua l wellness exam Z00.00 ; 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 ; Mood disorder F39 ; Chronic fatigue, unspecified R53.82 and Neuropathy G62.9 [facility] [address] [id number] [address] [place] [id number] November, Neuropathy G62.9 [facility] [address] [id number] [address] [place] [phone] Oct, Neuropathy G62.9 [facility] [address] [id number] [address] [place] [phone] Oct, Hypertension, benign I10 and Anxiety F41.9 [facility] [address] [id number] [address] [place] [phone] Oct, [facility] [address] [id number] [address] [place] [phone] Oct, [facility] [address] [id number] [address] [place] [phone] Oct, [facility] [address] [id number] [address] [place] [id number] Oct, Neuropathy G62.9 [facility] [address] [facility] [id number] [address] [place] [phone] Sep, [facility] [address] [id number] [address] [place] [id number] Sep, Neuropathy G62.9 [facility] [address] [facility] [id number] [address] [place] [phone] Sep, [facility] [address] [facility] [id number] [address] [place] [id number] Sep, H/O malignant carcinoid tumo r of rectum Z85.040 and Primary insomnia F51.01 [facility] [address] [facility] [id number] [address] [place] [phone] Aug, [facility] [address] [facility] [id number] [address] [place] [id number] Aug, Neuropathy G62.9 [facility] [address] [facility] [id number] [address] [place] [phone] Aug, [facility] [address] [facility] [id number] [address] [place] [phone] Jul, Non-recurrent acute suppurat francine otitis media of left ear without spontaneous rupture of tympanic membrane H66.002 [facility] [address] [facility] [id number] [address] [place] [phone] Jul, Neuropathy G62.9 [facility] [address] [facility] [id number] [address] [place] [phone] Jun, [facility] [address] [facility] [id number] [address] [place] [phone] Jun, [facility] [address] [facility] [id number] [address] [place] [id number] Jun, Neuropathy G62.9 [facility] [address] [facility] [id number] [address] [place] [phone] Jun, [facility] [address] [place] [id number] [address] [place] [phone] Jun, [facility] [address] [address] Jun, Lumbar neuritis M54.16 [facility] [address] [place] [id number] [address] [place] [phone] May, Neuropathy G62.9 [facility] [address] [phone] May, [facility] [address] [id number] May, Neuropathy G62.9 and Hyperte nsion, benign I10 [place] [address] [address] Apr, Polyneuropathy G62.9 and Hyp ertension, benign I10 [facility] [address] [phone] 17 Mar, 2018 Chronic pain syndrome G89.4 and Hypertension, benign I10 [place] [address] [address] Mar, Polyneuropathy G62.9 and Hyp ertension, benign I10 [facility] [address] [address] Feb, [facility] [address] [address] Feb, Hypertension, benign I10 [facility] [address] [place] [id number] [place] [phone] Feb, Hypertension, benign I10 ; P olyneuropathy G62.9 and Primary insomnia F51.01 [facility] [address] [place] [id number] [address] [place] [id number] Jan, Hypertension, benign I10 and Polyneuropathy G62.9 [facility] [address] [place] [id number] [address] [place] [phone] Jan, Hypertension, benign I10 and Neuropathy G62.9 [facility] [address] [id number] [address] [place] [phone] Jan, [facility] [address] [facility] [id number] [address] [place] [phone] Dec, Polyneuropathy G62.9 [facility] [address] [id number] [address] [place] [phone] Dec, Mood disorder F39 [facility] [address] [id number] [address] [place] [phone] November, Polyneuropathy G62.9 [facility] [address] [facility] [id number] [address] [place] [phone] November, Medicare annual wellness vis it, initial Z00.00 [facility] [address] [facility] [id number] [address] [place] [phone] November, Mood disorder F39 [facility] [address] [facility] [id number] [address] [place] [phone] Oct, Polyneuropathy G62.9 [facility] [address] [facility] [id number] [address] [place] [phone] Oct, [facility] [address] [facility] [id number] [address] [place] [phone] Oct, [facility] [address] [facility] [id number] [address] [place] [id number] Oct, Mood disorder F39 ; Attentio n to urostomy Z43.6 ; Chronic pain syndrome G89.4 and Polyneuropathy G62.9 [facility] [address] [id number] [address] [place] [phone] Sep, Polyneuropathy G62.9 [facility] [address] [facility] [id number] [address] [place] [id number] Sep, [facility] [address] [facility] [id number] [address] [place] [phone] Sep, Polyneuropathy G62.9 [facility] [address] [facility] [id number] [address] [place] [id number] Aug, Polyneuropathy G62.9 [facility] [address] [facility] [id number] [address] [place] [phone] Aug, Malignant neoplasm of colon, unspecified part of colon C18.9 and Polyneuropathy G62.9 [facility] [address] [facility] [id number] [address] [place] [phone] Aug, Neuropathy G62.9 and Polyneu ropathy G62.9 [facility] [address] [facility] [id number] [address] [place] [id number] Jul, Encounter for drug screening Z02.83 [facility] [address] [facility] [id number] [address] [place] [id number] Jul, Polyneuropathy G62.9 [facility] [address] [facility] [id number] [address] [place] [phone] Jul, [facility] [address] [facility] [id number] [address] [place] [phone] Jul, Neuropathy G62.9 and Anxiety F41.9 [facility] [address] [facility] [id number] [address] [place] [phone] Jul, [facility] [address] [facility] [id number] [address] [place] [phone] Jul, [facility] [address] [facility] [id number] [address] [place] [phone] Jul, [facility] [address] [facility] [id number] [address] [place] [phone] Jul, Polyneuropathy G62.9 [facility] [address] [facility] [id number] [address] [place] [phone] Jul, [facility] [address] [facility] [id number] [address] [place] [phone] Jun, [facility] [address] [facility] [id number] [address] [place] [phone] Jun, [facility] [address] [facility] [id number] [address] [place] [phone] Jun, [facility] [address] [id number] [address] [place] [phone] 07 Jun, 2017 Encounter for dental examina tion Z01.20 [facility] [address] [facility] [id number] [address] [place] [phone] Jun, Polyneuropathy G62.9 and Anx iety F41.9 [facility] [address] [facility] [id number] [address] [place] [phone] Jun, [facility] [address] [id number] [place] [address] May, Dental examination Z01.20 [facility] [address] [facility] [id number] [address] [place] [id number] May, Polyneuropathy G62.9 [facility] [address] [facility] [id number] [address] [place] [phone] Apr, Polyneuropathy G62.9 [facility] [address] [place] [id number] [address] [place] [phone] Apr, Polyneuropathy G62.9 [facility] [address] [facility] [id number] [address] [place] [phone] Apr, Hypertension, benign I10 ; P olyneuropathy G62.9 and Anxiety F41.9 [facility] [address] [facility] [id number] [address] [place] [phone] Apr, Primary insomnia F51.01 and Polyneuropathy G62.9 [facility] [address] [facility] [id number] [address] [place] [phone] Apr, Primary insomnia F51.01 and Polyneuropathy G62.9 [facility] [address] [id number] [address] [place] [phone] Mar, Primary insomnia F51.01 [facility] [address] [id number] [address] [place] [phone] Mar, [facility] [address] [id number] [address] [place] [id number] Mar, Polyneuropathy G62.9 [facility] [address] [id number] [address] [place] [phone] Feb, Primary insomnia F51.01 [facility] [address] [id number] [address] [place] [id number] Feb, [facility] [address] [id number] [address] [place] [phone] Feb, [facility] [address] [id number] [address] [place] [phone] Feb, Polyneuropathy G62.9 [facility] [address] [id number] [address] [place] [id number] Feb, Primary insomnia F51.01 [facility] [address] [id number] [address] [place] [phone] Jan, [facility] [address] [id number] [address] [place] [phone] Jan, [facility] [address] [id number] [address] [place] [id number] Dec, [facility] [address] [id number] [address] [place] [id number] Dec, Primary insomnia F51.01 [facility] [address] [id number] [address] [place] [id number] Dec, Primary insomnia F51.01 [facility] [address] [id number] [address] [place] [phone] Dec, [facility] [address] [id number] [address] [place] [phone] Dec, [facility] [address] [facility] [id number] [address] [place] [phone] Dec, [facility] [address] [facility] [id number] [address] [place] [id number] Dec, [facility] [address] [facility] [id number] [address] [place] [phone] November, Primary insomnia F51.01 and Polyneuropathy G62.9 [facility] [address] [facility] [id number] [address] [place] [id number] November, [facility] [address] [facility] [id number] [address] [place] [phone] November, Abdominal pain, left lower q uadrant R10.32 [facility] [address] [facility] [id number] [address] [place] [phone] November, [facility] [address] [facility] [id number] [address] [place] [phone] Oct, [facility] [address] [facility] [id number] [address] [place] [phone] Oct, Abdominal pain, left lower q uadrant R10.32 ; 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 and Neuropathy G62.9 [facility] [address] [facility] [id number] [address] [place] [id number] Oct, [facility] [address] [facility] [id number] [address] [place] [phone] Sep, [facility] [id number] [place] [id number] Sep, [facility] [address] [facility] [id number] [address] [place] [id number] Sep, [facility] [address] [id number] [address] [place] [phone] Aug, [facility] [address] [id number] [address] [place] [phone] Aug, [facility] [address] [id number] [address] [place] [phone] Aug, Abdominal pain, left lower q uadrant R10.32 ; Neuropathy G62.9 and Anxiety F41.9 [facility] [address] [place] [address] Jul, [facility] [address] [id number] [address] [place] [phone] Jul, [facility] [address] [id number] [address] [place] [id number] Jul, [facility] [address] [id number] [address] [place] [id number] Jul, [facility] [address] [id number] [address] [place] [phone] Jul, [facility] [address] [id number] [address] [place] [phone] Jun, [facility] [address] [id number] [address] [place] [phone] May, [facility] [address] [id number] [address] [place] [phone] May, [facility] [address] [id number] [address] [place] [phone] Apr, [facility] [address] [id number] [address] [place] [phone] Apr, Muscle spasms of both lower extremities M62.838 and Cellulitis, unspecified cellulitis site L03.90 [facility] [address] [id number] [address] [place] [phone] Apr, [facility] [address] [id number] [address] [place] [phone] 23 Mar, 2016 Generalized abdominal pain R 10.84 [facility] [address] [id number] [address] [place] [phone] 20 Mar, 2016 [facility] [address] [id number] [address] [place] [phone] 14 Mar, 2015 [facility] [address] [id number] [address] [place] [phone] 14 Mar, 2015 [facility] [address] [id number] [address] [place] [phone] 13 Mar, 2015 [facility] [address] [id number] [address] [place] [phone] 12 Mar, 2016 [facility] [address] [id number] [address] [place] [id number] 09 Mar, 2016 [facility] [address] [id number] [address] [place] [phone] 06 Mar, 2016 [facility] [address] [id number] [address] [place] [phone] Feb, Other specified diseases of anus and rectum K62.89 [facility] [address] [id number] [address] [place] [phone] Feb, [facility] [address] [id number] [address] [place] [phone] Feb, Dizziness R42 [facility] [address] [id number] [address] [place] [id number] Feb, [facility] [address] [id number] [address] [place] [id number] Jan, Polyneuropathy G62.9 [facility] [address] [id number] [address] [place] [phone] Jan, Other specified diseases of anus and rectum K62.89 [facility] [address] [id number] [address] [place] [phone] Jan, [facility] [address] [id number] [address] [place] [address], [place] [id number] 16 Jan, 2016 [facility] [address] [id number] [address] [place] [address], [place] [id number] Jan, [facility] [address] [id number] [address] [place] [address], [place] [id number] Jan, Dizziness R42 [facility] [address] [id number] [address] [place] [address], [place] [id number] Dec, [facility] [address] [id number] [address] [place] [address], [place] [id number] Dec, [facility] [address] [id number] [address] [place] [address], [place] [id number] Dec, [facility] [address] [id number] [address] [place] [address], [place] [id number] Dec, Dizziness R42 [facility] [address] [id number] [address] [place] [address], [place] [id number] November, [facility] [address] [id number] [address] [place] [address], [place] [id number] Oct, [facility] [address] [id number] [address] [place] [address], [place] [id number] Oct, [facility] [address] [id number] [address] [place] [address], [place] [id number] Oct, [facility] [address] [id number] [address] [place] [address], [place] [id number] Oct, [facility] [address] [id number] [address] [place] [address], [place] [id number] Sep, [facility] [address] [id number] [address] [place] [address], [place] [id number] Sep, Primary insomnia F51.01 [facility] [address] [id number] [address] [place] [address], [place] [id number] Sep, Primary insomnia F51.01 [facility] [address] [id number] Sep, [facility] [address] [id number] Aug, [facility] [address] [id number] Aug, [facility] [address] [id number] Aug, Primary insomnia F51.01 ; Mo od disorder F39 ; Nausea and vomiting, unspecified intactability, vomiting of unspecified type R11.2 and Diarrhea R19.7 [facility] [address] [id number] Aug, [facility] [address] [id number] Aug, Folliculitis L73.9 [facility] [address] [id number] Aug, [facility] [address] [id number] Aug, [facility] [address] [id number] Jul, Folliculitis L73.9 [facility] [address] [id number] Jul, [facility] [address] [id number] Jun, Folliculitis L73.9 [facility] [address] [id number] Jun, [facility] [address] [id number] May, Polyneuropathy G62.9 [facility] [address] [place] [id number] [address] [place] [id number] May, Other specified diseases of anus and rectum K62.89 [facility] [address] [id number] [address] [place] [id number] May, [facility] [address] [facility] [id number] [address] [place] [id number] May, Primary insomnia F51.01 [facility] [address] [id number] [address] [place] [id number] May, [facility] [address] [id number] [address] [place] [id number] May, [facility] [address] [facility] [id number] [address] [place] [id number] Apr, Other specified diseases of anus and rectum K62.89 ; Chronic fatigue R53.82 ; Urinary tract infection, site not specified N39.0 and Enterococcus as the cause of diseases classified elsewhere B95.2 [facility] [address] [id number] [address] [place] [id number] 16 Apr, 2015 [facility] [address] [id number] [address] [place] [id number] 15 Apr, 2015 [facility] [address] [facility] [id number] [address] [place] [id number] 14 Apr, 2015 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 [facility] [facility] [address] [id number] [address] [place] [id number] 05 Apr, 2015 [facility] [address] [id number] [address] [place] [id number] Mar, [facility] [address] [id number] [address] [place] [id number] 23 Mar, 2015 [facility] [address] [facility] [id number] [address] [place] [id number] 17 Mar, 2015 [facility] [address] [id number] [address] [place] [id number] 14 Mar, 2015 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 [facility] [address] [id number] [address] [place] [id number] 12 Mar, 2015 [facility] [address] [id number] [address] [place] [phone] Mar, [facility] [address] [id number] [address] [place] [id number] Mar, [facility] [address] [id number] [address] [place] [phone] Mar, [facility] [address] [id number] [address] [place] [id number] Feb, [facility] [address] [id number] [address] [place] [phone] Feb, [facility] [address] [id number] [address] [place] [phone] Feb, [facility] [address] [id number] [address] [place] [id number] Jan, [facility] [address] [id number] [address] [place] [id number] Jan, Nausea 787.02 and Neuropathy 355.9 [facility] [address] [id number] [address] [place] [phone] Jan, [facility] [address] [id number] [address] [place] [id number] Jan, [facility] [address] [id number] [address] [place] [phone] Jan, [facility] [address] [id number] [address] [place] [id number] Jan, Dental examination V72.2 [facility] [address] [id number] [address] [place] [phone] Jan, [facility] [address] [id number] [address] [place] [phone] Dec, [facility] [address] [id number] [address] [place] [address], [place] [id number] Dec, [facility] [address] [id number] [address] [place] [address], [place] [id number] Dec, Neuropathy 355.9 [facility] [address] [id number] [address] [place] [address], [place] [id number] November, [facility] [address] [id number] [address] [place] [address], [place] [id number] November, [facility] [address] [id number] [address] [place] [address], [place] [id number] November, [facility] [address] [id number] [address] [place] [address], [place] [id number] Oct, [facility] [address] [id number] [address] [place] [address], [place] [id number] Oct, [facility] [address] [id number] [address] [place] [address], [place] [id number] Sep, [facility] [address] [id number] [address] [place] [address], [place] [id number] Sep, [facility] [address] [id number] [address] [place] [address], [place] [id number] Sep, [facility] [address] [id number] [address] [place] [address], [place] [id number] Sep, [facility] [address] [id number] [address] [place] [phone] Sep, [facility] [address] [id number] [address] [place] [address], [place] [id number] Sep, [facility] [address] [id number] [address] [place] [address], [place] [id number] Sep, [facility] [address] [id number] [address] [place] [phone] Sep, [facility] [address] [id number] [address] [place] [address], [place] [id number] Aug, 2014 [facility] [address] [id number] [address] [place] [address], [place] [id number] Aug, 2014 [facility] [address] [id number] [address] [place] [address], [place] [id number] Aug, 2014 [facility] [address] [id number] [address] [place] [address], [place] [id number] Aug, 2014 [facility] [address] [id number] [address] [place] [address], [place] [id number] Aug, [facility] [address] [id number] [address] [place] [address], [place] [id number] Aug, 2014 [facility] [address] [id number] [address] [place] [address], [place] [id number] Aug, [facility] [address] [id number] [address] [place] [address], [place] [id number] Aug, [facility] [address] [id number] [address] [place] [address], [place] [id number] Jul, [facility] [address] [id number] [address] [place] [address], [place] [id number] Jul, [facility] [address] [id number] [address] [place] [address], [place] [id number] Jun, [facility] [address] [id number] [address] [place] [address], [place] [id number] Jun, [facility] [address] [id number] [address] [place] [address], [place] [id number] Jun, [facility] [address] [id number] [address] [place] [address], [place] [id number] Jun, [facility] [address] [id number] [address] [place] [address], [place] [id number] Jun, [facility] [address] [id number] [address] [place] [address], [place] [id number] Jun, [facility] [address] [id number] [address] [place] [address], [place] [id number] Jun, [facility] [address] [id number] [address] [place] [address], [place] [id number] Jun, [facility] [address] [id number] [address] [place] [address], [place] [id number] Jun, [facility] [address] [id number] [address] [place] [address], [place] [id number] Jun, [facility] [address] [id number] [address] [place] [address], [place] [id number] Jun, [facility] [address] [id number] [address] [place] [address], [place] [id number] May, [facility] [address] [id number] [address] [place] [address], [place] [id number] May, [facility] [address] [id number] [address] [place] [address], [place] [id number] May, [facility] [address] [id number] [address] [place] [address], [place] [id number] May, [facility] [address] [id number] [address] [place] [address], [place] [id number] May, [facility] [address] [id number] [address] [place] [address], [place] [id number] May, [facility] [address] [id number] [address] [place] [address], [place] [id number] May, [facility] [address] [id number] [address] [place] [address], [place] [id number] May, [facility] [address] [id number] [address] [place] [address], [place] [id number] May, [facility] [address] [id number] [address] [place] [address], [place] [id number] Apr, [facility] [address] [id number] [address] [place] [address], [place] [id number] Apr, [facility] [address] [id number] [address] [place] [address], [place] [id number] Apr, [facility] [address] [id number] [address] [place] [address], [place] [id number] Apr, [facility] [address] [id number] [address] [place] [address], [place] [id number] Apr, [facility] [address] [id number] [address] [place] [address], [place] [id number] Mar, [facility] [address] [id number] [address] [place] [address], [place] [id number] Mar, [facility] [address] [id number] [address] [place] [address], [place] [id number] Feb, [facility] [address] [id number] [address] [place] [address], [place] [id number] Feb, [facility] [address] [id number] [address] [place] [address], [place] [id number] Feb, [facility] [address] [id number] [address] [place] [address], [place] [id number] Feb, [facility] [address] [id number] [address] [place] [address], [place] [id number] Feb, [facility] [address] [id number] [address] [place] [address], [place] [id number] Feb, [facility] [address] [id number] [address] [place] [address], [place] [id number] Jan, [facility] [address] [id number] [address] [place] [address], [place] [id number] Jan, [facility] [address] [id number] [address] [place] [address], [place] [id number] Jan, [facility] [address] [id number] [address] [place] [address], [place] [id number] Jan, [facility] [address] [id number] [facility] [place] [id number] Jan, [facility] [address] [id number] [facility] [place] [id number] Jan, [facility] [address] [id number] [facility] [place] [id number] Jan, [facility] [address] [id number] [address] [place] [address], [place] [id number] Jan, [facility] [address] [id number] [address] [place] [address], [place] [id number] Jan, [facility] [address] [id number] [address] [place] [address], [place] [id number] Jan, [facility] [address] [id number] [address] [place] [address], [place] [id number] Jan, [facility] [address] [id number] [address] [place] [address], [place] [id number] Dec, [facility] [address] [id number] [address] [place] [address], [place] [id number] Dec, [facility] [address] [id number] [address] [place] [address], [place] [id number] Dec, [facility] [address] [id number] [address] [place] [address], [place] [id number] Dec, [facility] [address] [id number] [address] [place] [address], [place] [id number] Dec, [facility] [address] [id number] [address] [place] [address], [place] [id number] Dec, [facility] [address] [id number] [address] [place] [address], [place] [address] November, [facility] [address] [id number] [address] [place] [address], [place] [id number] November, [facility] [address] [id number] [facility] [place] [id number] 15 Nov, 2013 [facility] [address] [id number] [address] [place] [address], [place] [id number] November, [facility] [address] [id number] [address] [place] [address], [place] [address] November, [facility] [address] [id number] [address] [place] [address], [place] [address] November, [facility] [address] [id number] [address] [place] [address], [place] [id number] Oct, [facility] [address] [id number] [address] [place] [address], [place] [id number] Oct, [facility] [address] [id number] [address] [place] [address], [place] [id number] Oct, [facility] [address] [id number] [address] [place] [address], [place] [id number] Oct, [facility] [address] [id number] [address] [place] [address], [place] [id number] 17 Sep, 2013 [facility] [address] [id number] [address] [place] [address], [place] [id number] 17 Sep, 2013 [facility] [address] [id number] [address] [place] [address], [place] [id number] Sep, [facility] [address] [id number] [address] [place] [address], [place] [id number] Sep, [facility] [address] [id number] [address] [place] [address], [place] [id number] Sep, [facility] [address] [id number] [address] [place] [address], [place] [id number] Aug, [facility] [address] [id number] [address] [place] [address], [place] [id number] Aug, [facility] [address] [id number] [address] [place] [address], [place] [id number] Aug, [facility] [address] [id number] [address] [place] [address], [place] [id number] Aug, [facility] [address] [id number] [address] [place] [address], [place] [id number] Aug, [facility] [address] [id number] May, [facility] [address] [id number] [address] [place] [address], [place] [id number] May, [facility] [address] [id number] [address] [place] [address], [place] [id number] May, [facility] [address] [id number] [address] [place] [address], [place] [address] May, [facility] [address] [id number] [address] [place] [address], [place] [id number] May, [facility] [address] [id number] [address] [place] [address], [place] [id number] Apr, [facility] [address] [id number] [address] [place] [address], [place] [id number] Apr, [facility] [address] [id number] [address] [place] [address], [place] [id number] Apr, [facility] [address] [id number] [address] [place] [id number] Apr, [facility] [address] [id number] [address] [place] [id number] Apr, [facility] [address] [id number] [address] [place] [address], [place] [id number] Apr, [facility] [address] [id number] [address] [place] [address], [place] [id number] Apr, [facility] [address] [id number] [address] [place] [id number] Mar, [facility] [address] [id number] [address] [place] [id number] 25 Mar, 2013 [facility] [address] [id number] [address] [place] [address], [place] [id number] 24 Mar, 2013 [facility] [address] [id number] [address] [place] [address], [place] [id number] 16 Mar, 2013 [facility] [address] [id number] [address] [place] [address], [place] [id number] Mar, [facility] [address] [id number] [address] [place] [address], [place] [id number] 06 Mar, 2013 [facility] [address] [id number] [address] [place] [address], [place] [id number] Feb, [facility] [address] [id number] [address] [place] [address], [place] [id number] Feb, [facility] [address] [id number] [address] [place] [address], [place] [id number] Feb, [facility] [address] [id number] [address] [place] [address], [place] [id number] Feb, [facility] [address] [id number] [address] [place] [address], [place] [id number] Feb, [facility] [address] [id number] [address] [place] [address], [place] [id number] Feb, [facility] [address] [id number] [address] [place] [address], [place] [id number] Jan, [facility] [address] [id number] [address] [place] [address], [place] [id number] Dec, [facility] [address] [id number] [address] [place] [address], [place] [id number] Dec, [facility] [address] [id number] [address] [place] [address], [place] [id number] Dec, [facility] [address] [id number] [address] [place] [address], [place] [id number] Dec, [facility] [address] [id number] [address] [place] [address], [place] [id number] 19 Dec, 2012 [facility] [address] [id number] [address] [place] [address], [place] [id number] 18 Dec, 2012 [facility] [address] [id number] [address] [place] [address], [place] [id number] 17 Dec, 2012 [facility] [address] [id number] [address] [place] [address], [place] [id number] Dec, [facility] [address] [id number] [address] [place] [address], [place] [id number] Dec, [facility] [address] [id number] [address] [place] [address], [place] [id number] November, [facility] [address] [id number] [address] [place] [address], [place] [id number] November, [facility] [address] [id number] [address] [place] [address], [place] [id number] Oct, [facility] [address] [id number] [address] [place] [address], [place] [id number] Sep, [facility] [address] [id number] [address] [place] [address], [place] [id number] Sep, [facility] [address] [id number] [address] [place] [address], [place] [id number] Sep, [facility] [address] [id number] [address] [place] [address], [place] [id number] Sep, [facility] [address] [id number] [address] [place] [address], [place] [id number] Aug, [facility] [address] [id number] [address] [place] [address], [place] [id number] Aug, [facility] [address] [id number] [address] [place] [address], [place] [id number] Jul, [facility] [address] [id number] [address] [place] [address], [place] [id number] Jul, [facility] [address] [facility] [id number] [address] [place] [id number] Jul, [facility] [address] [facility] [id number] [address] [place] [id number] Sep, [facility] [address] [facility] [id number] [address] [place] [phone] Sep, [facility] [address] [facility] [id number] [address] [place] [id number] Sep, IMMUNIZATIONS No Known Immunizations SOCIAL HISTORY [...] bowel obstruction, Dehydration -[facility] 01/01/17 Hospitalization History [facility]- UTI/Sepsis 01/18/2018 Hospitalization History [facility] - infection 4 days 05/2018
--- OUTSIDE RECORDS SUMMARY | 2020-01-14 23:05 | XMS REPORT ---
Author Author Melvin BENTLEY Organization [facility] Address [address] [place] [address] Care Team Providers Care Insurance Sales Manager Name Role Phone LINDA BENTLEY Unavailable PROBLEMS Type Condition ICD9-CM Code [id number] Code Onset Dates Condition S tatus SNOMED Code Problem Incontinence of feces, unspecified fecal incontinence type R15.9 Active 49841354 Problem Primary insomnia F51.01 Active 193 388285 Problem Hydronephrosis with ureteral stricture, not else where classified N13.1 Active 79061838 Problem Chronic fatigue, unspecified R53.82 A ctive 818677534 Problem Hypertension, benign I10 Active 10914328 Problem Mood disorder F39 Active 518535 05 Problem Neuropathy G62.9 Active 116744037 Problem Chronic pain syndrome G89.4 Active 478813712 Problem Abdominal pain, left lower quadrant R10.32 Active 524104233 Problem 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 Active 770354132 Problem 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 283053139 Problem Anxiety F41.9 Active 80040104 Problem Polyneuropathy G62.9 Active 27219 000 Problem Malignant neoplasm of colon, unspecified part of colon C18.9 Active 050750972 Problem Attention to urostomy Z43.6 Active 771336046 ALLERGIES No Information ENCOUNTERS Encounter Location Date Diagnosis [facility] [address] [facility] [id number] [address] [place] [phone] Mar, [facility] [address] [facility] [id number] [address] [place] [phone] Feb, Neuropathy G62.9 and Encount er for Medicare annual wellness exam Z00.00 [facility] [address] [facility] [id number] [address] [place] [phone] Feb, Primary insomnia F51.01 and High risk medication use Z79.899 [facility] [address] [id number] [address] [place] [phone] Jan, [facility] [address] [id number] [address] [place] [phone] Jan, Neuropathy G62.9 [facility] [address] [id number] [address] [place] [phone] Dec, [facility] [address] [id number] [address] [place] [phone] Dec, Encounter for Medicare annua l wellness exam Z00.00 and Neuropathy G62.9 [facility] [address] [id number] [address] [place] [phone] November, [facility] [address] [id number] [address] [place] [phone] November, Encounter for Medicare annua l wellness exam Z00.00 ; 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 ; Mood disorder F39 ; Chronic fatigue, unspecified R53.82 and Neuropathy G62.9 [facility] [address] [id number] [address] [place] [phone] November, Neuropathy G62.9 [facility] [address] [id number] [address] [place] [phone] Oct, Neuropathy G62.9 [facility] [address] [id number] [address] [place] [phone] Oct, Hypertension, benign I10 and Anxiety F41.9 [facility] [address] [id number] [address] [place] [phone] Oct, [facility] [address] [id number] [address] [place] [phone] Oct, [facility] [address] [id number] [address] [place] [phone] Oct, [facility] [address] [id number] [address] [place] [phone] Oct, Neuropathy G62.9 [facility] [address] [facility] [id number] [address] [place] [phone] Sep, [facility] [address] [id number] [address] [place] [phone] Sep, Neuropathy G62.9 [facility] [address] [facility] [id number] [address] [place] [phone] Sep, [facility] [address] [facility] [id number] [address] [place] [phone] Sep, H/O malignant carcinoid tumo r of rectum Z85.040 and Primary insomnia F51.01 [facility] [address] [facility] [id number] [address] [place] [phone] Aug, [facility] [address] [facility] [id number] [address] [place] [phone] Aug, Neuropathy G62.9 [facility] [address] [facility] [id number] [address] [place] [phone] Aug, [facility] [address] [facility] [id number] [address] [place] [phone] Jul, Non-recurrent acute suppurat francine otitis media of left ear without spontaneous rupture of tympanic membrane H66.002 [facility] [address] [facility] [id number] [address] [place] [phone] Jul, Neuropathy G62.9 [facility] [address] [facility] [id number] [address] [place] [phone] Jun, [facility] [address] [facility] [id number] [address] [place] [phone] Jun, [facility] [address] [facility] [id number] [address] [place] [phone] Jun, Neuropathy G62.9 [facility] [address] [facility] [id number] [address] [place] [phone] Jun, [facility] [address] [place] [id number] [address] [place] [phone] Jun, [facility] [address] [phone] Jun, Lumbar neuritis M54.16 [facility] [address] [place] [id number] [address] [place] [phone] May, Neuropathy G62.9 [facility] [address] [phone] May, [facility] [address] [address] May, Neuropathy G62.9 and Hyperte nsion, benign I10 [place] [address] [id number] Apr, Polyneuropathy G62.9 and Hyp ertension, benign I10 [facility] [address] [id number] 17 Mar, 2018 Chronic pain syndrome G89.4 and Hypertension, benign I10 [place] [address] [id number] Mar, Polyneuropathy G62.9 and Hyp ertension, benign I10 [facility] [address] [id number] Feb, [facility] [address] [id number] Feb, Hypertension, benign I10 [facility] [address] [place] [id number] [place] [phone] Feb, Hypertension, benign I10 ; P olyneuropathy G62.9 and Primary insomnia F51.01 [facility] [address] [place] [id number] [address] [place] [phone] Jan, Hypertension, benign I10 and Polyneuropathy G62.9 [facility] [address] [place] [id number] [address] [place] [phone] Jan, Hypertension, benign I10 and Neuropathy G62.9 [facility] [address] [id number] [address] [place] [phone] Jan, [facility] [address] [facility] [id number] [address] [place] [phone] Dec, Polyneuropathy G62.9 [facility] [address] [id number] [address] [place] [phone] Dec, Mood disorder F39 [facility] [address] [id number] [address] [place] [phone] November, Polyneuropathy G62.9 [facility] [address] [facility] [id number] [address] [place] [phone] November, Medicare annual wellness vis it, initial Z00.00 [facility] [address] [facility] [id number] [address] [place] [phone] November, Mood disorder F39 [facility] [address] [facility] [id number] [address] [place] [phone] Oct, Polyneuropathy G62.9 [facility] [address] [facility] [id number] [address] [place] [phone] Oct, [facility] [address] [facility] [id number] [address] [place] [phone] Oct, [facility] [address] [facility] [id number] [address] [place] [phone] Oct, Mood disorder F39 ; Attentio n to urostomy Z43.6 ; Chronic pain syndrome G89.4 and Polyneuropathy G62.9 [facility] [address] [id number] [address] [place] [phone] Sep, Polyneuropathy G62.9 [facility] [address] [facility] [id number] [address] [place] [phone] Sep, [facility] [address] [facility] [id number] [address] [place] [phone] Sep, Polyneuropathy G62.9 [facility] [address] [facility] [id number] [address] [place] [phone] Aug, Polyneuropathy G62.9 [facility] [address] [facility] [id number] [address] [place] [phone] Aug, Malignant neoplasm of colon, unspecified part of colon C18.9 and Polyneuropathy G62.9 [facility] [address] [facility] [id number] [address] [place] [phone] Aug, Neuropathy G62.9 and Polyneu ropathy G62.9 [facility] [address] [facility] [id number] [address] [place] [phone] Jul, Encounter for drug screening Z02.83 [facility] [address] [facility] [id number] [address] [place] [phone] Jul, Polyneuropathy G62.9 [facility] [address] [facility] [id number] [address] [place] [phone] Jul, [facility] [address] [facility] [id number] [address] [place] [phone] Jul, Neuropathy G62.9 and Anxiety F41.9 [facility] [address] [facility] [id number] [address] [place] [phone] Jul, [facility] [address] [facility] [id number] [address] [place] [phone] Jul, [facility] [address] [facility] [id number] [address] [place] [phone] Jul, [facility] [address] [facility] [id number] [address] [place] [phone] Jul, Polyneuropathy G62.9 [facility] [address] [facility] [id number] [address] [place] [phone] Jul, [facility] [address] [facility] [id number] [address] [place] [phone] Jun, [facility] [address] [facility] [id number] [address] [place] [phone] Jun, [facility] [address] [facility] [id number] [address] [place] [phone] Jun, [facility] [address] [id number] [place] [phone] 07 Jun, 2017 Encounter for dental examina tion Z01.20 [facility] [address] [facility] [id number] [address] [place] [phone] Jun, Polyneuropathy G62.9 and Anx iety F41.9 [facility] [address] [facility] [id number] [address] [place] [phone] Jun, [facility] [address] [id number] [place] [address] May, Dental examination Z01.20 [facility] [address] [facility] [id number] [address] [place] [phone] May, Polyneuropathy G62.9 [facility] [address] [facility] [id number] [address] [place] [phone] Apr, Polyneuropathy G62.9 [facility] [address] [place] [id number] [address] [place] [phone] Apr, Polyneuropathy G62.9 [facility] [address] [facility] [id number] [address] [place] [phone] Apr, Hypertension, benign I10 ; P olyneuropathy G62.9 and Anxiety F41.9 [facility] [address] [facility] [id number] [address] [place] [phone] Apr, Primary insomnia F51.01 and Polyneuropathy G62.9 [facility] [address] [facility] [id number] [address] [place] [phone] Apr, Primary insomnia F51.01 and Polyneuropathy G62.9 [facility] [address] [id number] [address] [place] [phone] Mar, Primary insomnia F51.01 [facility] [address] [id number] [address] [place] [phone] Mar, [facility] [address] [id number] [address] [place] [phone] Mar, Polyneuropathy G62.9 [facility] [address] [id number] [address] [place] [phone] Feb, Primary insomnia F51.01 [facility] [address] [id number] [address] [place] [phone] Feb, [facility] [address] [id number] [address] [place] [phone] Feb, [facility] [address] [id number] [address] [place] [phone] Feb, Polyneuropathy G62.9 [facility] [address] [id number] [address] [place] [phone] Feb, Primary insomnia F51.01 [facility] [address] [id number] [address] [place] [phone] Jan, [facility] [address] [id number] [address] [place] [phone] Jan, [facility] [address] [id number] [address] [place] [phone] Dec, [facility] [address] [id number] [address] [place] [phone] Dec, Primary insomnia F51.01 [facility] [address] [id number] [address] [place] [phone] Dec, Primary insomnia F51.01 [facility] [address] [id number] [address] [place] [phone] Dec, [facility] [address] [id number] [address] [place] [phone] Dec, [facility] [address] [facility] [id number] [address] [place] [phone] Dec, [facility] [address] [facility] [id number] [address] [place] [phone] Dec, [facility] [address] [facility] [id number] [address] [place] [phone] November, Primary insomnia F51.01 and Polyneuropathy G62.9 [facility] [address] [facility] [id number] [address] [place] [phone] November, [facility] [address] [facility] [id number] [address] [place] [phone] November, Abdominal pain, left lower q uadrant R10.32 [facility] [address] [facility] [id number] [address] [place] [phone] November, [facility] [address] [facility] [id number] [address] [place] [phone] Oct, [facility] [address] [facility] [id number] [address] [place] [phone] Oct, Abdominal pain, left lower q uadrant R10.32 ; 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 and Neuropathy G62.9 [facility] [address] [facility] [id number] [address] [place] [phone] Oct, [facility] [address] [facility] [id number] [address] [place] [phone] Sep, [facility] [id number] [place] [id number] Sep, [facility] [address] [facility] [id number] [address] [place] [phone] Sep, [facility] [address] [id number] [address] [place] [phone] Aug, [facility] [address] [id number] [address] [place] [phone] Aug, [facility] [address] [id number] [address] [place] [phone] Aug, Abdominal pain, left lower q uadrant R10.32 ; Neuropathy G62.9 and Anxiety F41.9 [facility] [address] [place] [address] Jul, [facility] [address] [id number] [address] [place] [phone] Jul, [facility] [address] [id number] [address] [place] [id number] Jul, [facility] [address] [id number] [address] [place] [phone] Jul, [facility] [address] [id number] [address] [place] [phone] Jul, [facility] [address] [id number] [address] [place] [id number] Jun, [facility] [address] [id number] [address] [place] [phone] May, [facility] [address] [id number] [address] [place] [phone] May, [facility] [address] [id number] [address] [place] [phone] Apr, [facility] [address] [id number] [address] [place] [phone] Apr, Muscle spasms of both lower extremities M62.838 and Cellulitis, unspecified cellulitis site L03.90 [facility] [address] [id number] [address] [place] [phone] Apr, [facility] [address] [id number] [address] [place] [phone] 23 Mar, 2016 Generalized abdominal pain R 10.84 [facility] [address] [id number] [address] [place] [phone] 20 Mar, 2016 [facility] [address] [id number] [address] [place] [phone] 14 Mar, 2015 [facility] [address] [id number] [address] [place] [id number] 14 Mar, 2015 [facility] [address] [id number] [address] [place] [phone] 13 Mar, 2015 [facility] [address] [id number] [address] [place] [phone] 12 Mar, 2016 [facility] [address] [id number] [address] [place] [phone] 09 Mar, 2016 [facility] [address] [id number] [address] [place] [phone] 06 Mar, 2016 [facility] [address] [id number] [address] [place] [phone] Feb, Other specified diseases of anus and rectum K62.89 [facility] [address] [id number] [address] [place] [phone] Feb, [facility] [address] [id number] [address] [place] [phone] Feb, Dizziness R42 [facility] [address] [id number] [address] [place] [phone] Feb, [facility] [address] [id number] [address] [place] [phone] Jan, Polyneuropathy G62.9 [facility] [address] [id number] [address] [place] [phone] Jan, Other specified diseases of anus and rectum K62.89 [facility] [address] [id number] [address] [place] [id number] Jan, [facility] [address] [id number] [address] [place] [address], [place] [id number] 16 Jan, 2016 [facility] [place] [address] [id number] [address] [place] [address], [place] [address] Jan, [facility] [place] [address] [id number] [address] [place] [address], [place] [address] Jan, Dizziness R42 [facility] [place] [address] [id number] [address] [place] [address], [place] [address] Dec, [facility] [address] [id number] [address] [place] [address], [place] [address] Dec, [facility] [address] [id number] [address] [place] [address], [place] [address] Dec, [facility] [address] [id number] [address] [place] [address], [place] [address] Dec, Dizziness R42 [facility] [place] [address] [id number] [address] [place] [address], [place] [address] November, [facility] [address] [id number] [address] [place] [address], [place] [address] Oct, [facility] [address] [id number] [address] [place] [address], [place] [address] Oct, [facility] [address] [id number] [address] [place] [address], [place] [address] Oct, [facility] [address] [id number] [address] [place] [address], [place] [address] Oct, [facility] [address] [id number] [address] [place] [address], [place] [address] Sep, [facility] [address] [id number] [address] [place] [address], [place] [address] Sep, Primary insomnia F51.01 [facility] [address] [id number] [address] [place] [address], [place] [address] Sep, Primary insomnia F51.01 [facility] [address] [id number] Sep, [facility] [address] [id number] Aug, [facility] [address] [id number] Aug, [facility] [address] [id number] Aug, Primary insomnia F51.01 ; Mo od disorder F39 ; Nausea and vomiting, unspecified intactability, vomiting of unspecified type R11.2 and Diarrhea R19.7 [facility] [address] [id number] Aug, [facility] [address] [id number] Aug, Folliculitis L73.9 [facility] [address] [id number] Aug, [facility] [facility] [address] [address] Aug, [facility] [address] [id number] Jul, Folliculitis L73.9 [facility] [address] [id number] Jul, [facility] [address] [address] Jun, Folliculitis L73.9 [facility] [address] [id number] Jun, [facility] [address] [address] May, Polyneuropathy G62.9 [facility] [address] [place] [id number] [address] [place] [id number] May, Other specified diseases of anus and rectum K62.89 [facility] [address] [id number] [address] [place] [id number] May, [facility] [address] [facility] [id number] [address] [place] [phone] May, Primary insomnia F51.01 [facility] [address] [id number] [address] [place] [phone] May, [facility] [address] [id number] [address] [place] [phone] May, [facility] [address] [facility] [id number] [address] [place] [phone] Apr, Other specified diseases of anus and rectum K62.89 ; Chronic fatigue R53.82 ; Urinary tract infection, site not specified N39.0 and Enterococcus as the cause of diseases classified elsewhere B95.2 [facility] [address] [id number] [address] [place] [id number] 16 Apr, 2015 [facility] [address] [id number] [address] [place] [id number] 15 Apr, 2015 [facility] [address] [facility] [id number] [address] [place] [phone] 14 Apr, 2015 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 [facility] [address] [id number] [address] [place] [id number] 05 Apr, 2015 [facility] [address] [id number] [address] [place] [id number] Mar, [facility] [address] [id number] [address] [place] [id number] 23 Mar, 2015 [facility] [address] [facility] [id number] [address] [place] [phone] 17 Mar, 2015 [facility] [address] [id number] [address] [place] [id number] 14 Mar, 2015 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 [facility] [address] [id number] [address] [place] [phone] 12 Mar, 2015 [facility] [address] [id number] [address] [place] [id number] Mar, [facility] [address] [id number] [address] [place] [phone] Mar, [facility] [address] [id number] [address] [place] [id number] Mar, [facility] [address] [id number] [address] [place] [phone] Feb, [facility] [address] [id number] [address] [place] [phone] Feb, [facility] [address] [id number] [address] [place] [phone] Feb, [facility] [address] [id number] [address] [place] [phone] Jan, [facility] [address] [id number] [address] [place] [id number] Jan, Nausea 787.02 and Neuropathy 355.9 [facility] [address] [id number] [address] [place] [phone] Jan, [facility] [address] [id number] [address] [place] [phone] Jan, [facility] [address] [id number] [address] [place] [id number] Jan, [facility] [address] [id number] [address] [place] [id number] Jan, Dental examination V72.2 [facility] [address] [id number] [address] [place] [phone] Jan, [facility] [address] [id number] [address] [place] [id number] Dec, [facility] [address] [id number] [address] [place] [address], [place] [address] Dec, [facility] [address] [id number] [address] [place] [address], [place] [address] Dec, Neuropathy 355.9 [facility] [address] [id number] [address] [place] [address], [place] [address] November, [facility] [address] [id number] [address] [place] [address], [place] [address] November, [facility] [address] [id number] [address] [place] [address], [place] [address] November, [facility] [address] [id number] [address] [place] [address], [place] [address] Oct, [facility] [address] [id number] [address] [place] [address], [place] [address] Oct, [facility] [address] [id number] [address] [place] [address], [place] [address] Sep, [facility] [address] [id number] [address] [place] [address], [place] [address] Sep, [facility] [address] [id number] [address] [place] [address], [place] [address] Sep, [facility] [address] [id number] [address] [place] [address], [place] [address] Sep, [facility] [address] [id number] [address] [place] [phone] Sep, [facility] [address] [id number] [address] [place] [address], [place] [address] Sep, [facility] [address] [id number] [address] [place] [address], [place] [address] Sep, [facility] [address] [id number] [address] [place] [phone] Sep, [facility] [address] [id number] [address] [place] [address], [place] [address] Aug, 2014 [facility] [address] [id number] [address] [place] [address], [place] [address] Aug, 2014 [facility] [address] [id number] [address] [place] [address], [place] [address] Aug, 2014 [facility] [address] [id number] [address] [place] [address], [place] [address] Aug, 2014 [facility] [address] [id number] [address] [place] [address], [place] [address] Aug, [facility] [address] [id number] [address] [place] [address], [place] [address] Aug, 2014 [facility] [address] [id number] [address] [place] [address], [place] [address] Aug, [facility] [address] [id number] [address] [place] [address], [place] [address] Aug, [facility] [address] [id number] [address] [place] [address], [place] [address] Jul, [facility] [address] [id number] [address] [place] [address], [place] [address] Jul, [facility] [address] [id number] [address] [place] [address], [place] [address] Jun, [facility] [address] [id number] [address] [place] [address], [place] [address] Jun, [facility] [address] [id number] [address] [place] [address], [place] [address] Jun, [facility] [address] [id number] [address] [place] [address], [place] [address] Jun, [facility] [address] [id number] [address] [place] [address], [place] [address] Jun, [facility] [address] [id number] [address] [place] [address], [place] [address] Jun, [facility] [address] [id number] [address] [place] [address], [place] [address] Jun, [facility] [address] [id number] [address] [place] [address], [place] [address] Jun, [facility] [address] [id number] [address] [place] [address], [place] [address] Jun, [facility] [address] [id number] [address] [place] [address], [place] [address] Jun, [facility] [address] [id number] [address] [place] [address], [place] [address] Jun, [facility] [address] [id number] [address] [place] [address], [place] [address] May, [facility] [address] [id number] [address] [place] [address], [place] [address] May, [facility] [address] [id number] [address] [place] [address], [place] [address] May, [facility] [address] [id number] [address] [place] [address], [place] [address] May, [facility] [address] [id number] [address] [place] [address], [place] [address] May, [facility] [address] [id number] [address] [place] [address], [place] [address] May, [facility] [address] [id number] [address] [place] [address], [place] [address] May, [facility] [address] [id number] [address] [place] [address], [place] [address] May, [facility] [address] [id number] [address] [place] [address], [place] [address] May, [facility] [address] [id number] [address] [place] [address], [place] [address] Apr, [facility] [address] [id number] [address] [place] [address], [place] [address] Apr, [facility] [address] [id number] [address] [place] [address], [place] [address] Apr, [facility] [address] [id number] [address] [place] [address], [place] [address] Apr, [facility] [address] [id number] [address] [place] [address], [place] [address] Apr, [facility] [address] [id number] [address] [place] [address], [place] [address] Mar, [facility] [address] [id number] [address] [place] [address], [place] [address] Mar, [facility] [address] [id number] [address] [place] [address], [place] [address] Feb, [facility] [address] [id number] [address] [place] [address], [place] [address] Feb, [facility] [address] [id number] [address] [place] [address], [place] [address] Feb, [facility] [address] [id number] [address] [place] [address], [place] [address] Feb, [facility] [address] [id number] [address] [place] [address], [place] [address] Feb, [facility] [address] [id number] [address] [place] [address], [place] [address] Feb, [facility] [address] [id number] [address] [place] [address], [place] [address] Jan, [facility] [address] [id number] [address] [place] [address], [place] [address] Jan, [facility] [address] [id number] [address] [place] [address], [place] [address] Jan, [facility] [address] [id number] [address] [place] [address], [place] [address] Jan, [facility] [address] [id number] [facility] [place] [address] Jan, [facility] [address] [id number] [facility] [place] [address] Jan, [facility] [address] [id number] [facility] [place] [address] Jan, [facility] [address] [id number] [address] [place] [address], [place] [address] Jan, [facility] [address] [id number] [address] [place] [address], [place] [address] Jan, [facility] [address] [id number] [address] [place] [address], [place] [address] Jan, [facility] [address] [id number] [address] [place] [address], [place] [address] Jan, [facility] [address] [id number] [address] [place] [address], [place] [address] Dec, [facility] [address] [id number] [address] [place] [address], [place] [address] Dec, [facility] [address] [id number] [address] [place] [address], [place] [address] Dec, [facility] [address] [id number] [address] [place] [address], [place] [address] Dec, [facility] [address] [id number] [address] [place] [address], [place] [address] Dec, [facility] [address] [id number] [address] [place] [address], [place] [address] Dec, [facility] [address] [id number] [address] [place] [address], [place] [address] November, [facility] [address] [id number] [address] [place] [address], [place] [address] November, [facility] [address] [id number] [facility] [place] [address] 15 Nov, 2013 [facility] [address] [id number] [address] [place] [address], [place] [address] November, [facility] [address] [id number] [address] [place] [address], [place] [address] November, [facility] [address] [id number] [address] [place] [address], [place] [address] November, [facility] [address] [id number] [address] [place] [address], [place] [address] Oct, [facility] [address] [id number] [address] [place] [address], [place] [address] Oct, [facility] [address] [id number] [address] [place] [address], [place] [address] Oct, [facility] [address] [id number] [address] [place] [address], [place] [address] Oct, [facility] [address] [id number] [address] [place] [address], [place] [address] 17 Sep, 2013 [facility] [address] [id number] [address] [place] [address], [place] [address] 17 Sep, 2013 [facility] [address] [id number] [address] [place] [address], [place] [address] Sep, [facility] [address] [id number] [address] [place] [address], [place] [address] Sep, [facility] [address] [id number] [address] [place] [address], [place] [address] Sep, [facility] [address] [id number] [address] [place] [address], [place] [address] Aug, [facility] [address] [id number] [address] [place] [address], [place] [address] Aug, [facility] [address] [id number] [address] [place] [address], [place] [address] Aug, [facility] [address] [id number] [address] [place] [address], [place] [address] Aug, [facility] [address] [id number] [address] [place] [address], [place] [address] Aug, [facility] [address] [place] [id number] May, [facility] [address] [id number] [address] [place] [address], [place] [address] May, [facility] [address] [id number] [address] [place] [address], [place] [address] May, [facility] [address] [id number] [address] [place] [address], [place] [address] May, [facility] [address] [id number] [address] [place] [address], [place] [address] May, [facility] [address] [id number] [address] [place] [address], [place] [address] Apr, [facility] [address] [id number] [address] [place] [address], [place] [address] Apr, [facility] [address] [id number] [address] [place] [address], [place] [address] Apr, [facility] [address] [id number] [address] [place] [address] Apr, [facility] [address] [id number] [address] [place] [id number] Apr, [facility] [address] [id number] [address] [place] [address], [place] [address] Apr, [facility] [address] [id number] [address] [place] [address], [place] [address] Apr, [facility] [address] [id number] [address] [place] [address] Mar, [facility] [address] [id number] [address] [place] [id number] 25 Mar, 2013 [facility] [address] [id number] [address] [place] [address], [place] [address] 24 Mar, 2013 [facility] [address] [id number] [address] [place] [address], [place] [address] 16 Mar, 2013 [facility] [address] [id number] [address] [place] [address], [place] [address] Mar, [facility] [address] [id number] [address] [place] [address], [place] [address] 06 Mar, 2013 [facility] [address] [id number] [address] [place] [address], [place] [address] Feb, [facility] [address] [id number] [address] [place] [address], [place] [address] Feb, [facility] [address] [id number] [address] [place] [address], [place] [address] Feb, [facility] [address] [id number] [address] [place] [address], [place] [address] Feb, [facility] [address] [id number] [address] [place] [address], [place] [address] Feb, [facility] [address] [id number] [address] [place] [address], [place] [address] Feb, [facility] [address] [id number] [address] [place] [address], [place] [address] Jan, [facility] [address] [id number] [address] [place] [address], [place] [address] Dec, [facility] [address] [id number] [address] [place] [address], [place] [address] Dec, [facility] [address] [id number] [address] [place] [address], [place] [address] Dec, [facility] [address] [id number] [address] [place] [address], [place] [address] Dec, [facility] [address] [id number] [address] [place] [address], [place] [id number] 19 Dec, 2012 [facility] [address] [id number] [address] [place] [address], [place] [address] 18 Dec, 2012 [facility] [address] [id number] [address] [place] [address], [place] [address] 17 Dec, 2012 [facility] [address] [id number] [address] [place] [address], [place] [address] Dec, [facility] [address] [id number] [address] [place] [address], [place] [address] Dec, [facility] [address] [id number] [address] [place] [address], [place] [address] November, [facility] [address] [id number] [address] [place] [address], [place] [address] November, [facility] [address] [id number] [address] [place] [address], [place] [address] Oct, [facility] [address] [id number] [address] [place] [address], [place] [address] Sep, [facility] [address] [id number] [address] [place] [address], [place] [address] Sep, [facility] [address] [id number] [address] [place] [address], [place] [address] Sep, [facility] [address] [id number] [address] [place] [address], [place] [address] Sep, [facility] [address] [id number] [address] [place] [address], [place] [address] Aug, [facility] [address] [id number] [address] [place] [address], [place] [address] Aug, [facility] [address] [id number] [address] [place] [address], [place] [address] Jul, [facility] [address] [id number] [address] [place] [address], [place] [address] Jul, [facility] [address] [facility] [id number] [address] [place] [id number] Jul, [facility] [address] [facility] [id number] [address] [place] [id number] Sep, [facility] [address] [facility] [id number] [address] [place] [id number] Sep, [facility] [address] [facility] [id number] [address] [place] [id number] Sep, IMMUNIZATIONS No Known Immunizations SOCIAL HISTORY [...] bowel obstruction, Dehydration -[facility] 01/01/17 Hospitalization History [facility]- UTI/Sepsis 01/18/2018 Hospitalization History [facility] - infection 4 days 05/2018
--- OUTSIDE RECORDS SUMMARY | 2020-01-14 23:06 | XMS REPORT ---
Author Author Melvin BENTLEY Organization [facility] Address [address] [place] [address] Care Team Providers Care Facing End Trimmer Name Role Phone SHEREELINDA Unavailable PROBLEMS Type Condition ICD9-CM Code [id number] Code Onset Dates Condition S tatus SNOMED Code Problem Incontinence of feces, unspecified fecal incontinence type R15.9 Active 28526728 Problem Primary insomnia F51.01 Active 193 802474 Problem Hydronephrosis with ureteral stricture, not else where classified N13.1 Active 46527835 Problem Chronic fatigue, unspecified R53.82 A ctive 609373968 Problem Hypertension, benign I10 Active 94051227 Problem Mood disorder F39 Active 727229 05 Problem Neuropathy G62.9 Active 580969245 Problem Chronic pain syndrome G89.4 Active 105150162 Problem Abdominal pain, left lower quadrant R10.32 Active 242244415 Problem 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 Active 244840733 Problem 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 059296312 Problem Anxiety F41.9 Active 34840198 Problem Polyneuropathy G62.9 Active 95268 000 Problem Malignant neoplasm of colon, unspecified part of colon C18.9 Active 538723627 Problem Attention to urostomy Z43.6 Active [id number] ALLERGIES No Information ENCOUNTERS Encounter Location Date Diagnosis [facility] [address] [facility] [id number] [address] [place] [phone] Mar, [facility] [address] [facility] [id number] [address] [place] [address] Feb, Neuropathy G62.9 and Encount er for Medicare annual wellness exam Z00.00 [facility] [address] [facility] [id number] [address] [place] [address] Feb, Primary insomnia F51.01 and High risk medication use Z79.899 [facility] [address] [id number] [address] [place] [address] Jan, [facility] [address] [id number] [address] [place] [address] Jan, Neuropathy G62.9 [facility] [address] [id number] [address] [place] [address] Dec, [facility] [address] [id number] [address] [place] [address] Dec, Encounter for Medicare annua l wellness exam Z00.00 and Neuropathy G62.9 [facility] [address] [id number] [address] [place] [address] November, [facility] [address] [id number] [address] [place] [address] November, Encounter for Medicare annua l wellness exam Z00.00 ; 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 ; Mood disorder F39 ; Chronic fatigue, unspecified R53.82 and Neuropathy G62.9 [facility] [address] [id number] [address] [place] [address] November, Neuropathy G62.9 [facility] [address] [id number] [address] [place] [address] Oct, Neuropathy G62.9 [facility] [address] [id number] [address] [place] [address] Oct, Hypertension, benign I10 and Anxiety F41.9 [facility] [address] [id number] [address] [place] [address] Oct, [facility] [address] [id number] [address] [place] [address] Oct, [facility] [address] [id number] [address] [place] [address] Oct, [facility] [address] [id number] [address] [place] [address] Oct, Neuropathy G62.9 [facility] [address] [facility] [id number] [address] [place] [phone] Sep, [facility] [address] [id number] [address] [place] [phone] Sep, Neuropathy G62.9 [facility] [address] [facility] [id number] [address] [place] [phone] Sep, [facility] [address] [facility] [id number] [address] [place] [address] Sep, H/O malignant carcinoid tumo r of rectum Z85.040 and Primary insomnia F51.01 [facility] [address] [facility] [id number] [address] [place] [address] Aug, [facility] [address] [facility] [id number] [address] [place] [address] Aug, Neuropathy G62.9 [facility] [address] [facility] [id number] [address] [place] [address] Aug, [facility] [address] [facility] [id number] [address] [place] [address] Jul, Non-recurrent acute suppurat francine otitis media of left ear without spontaneous rupture of tympanic membrane H66.002 [facility] [address] [facility] [id number] [address] [place] [address] Jul, Neuropathy G62.9 [facility] [address] [facility] [id number] [address] [place] [phone] Jun, [facility] [address] [facility] [id number] [address] [place] [address] Jun, [facility] [address] [facility] [id number] [address] [place] [address] Jun, Neuropathy G62.9 [facility] [address] [facility] [id number] [address] [place] [address] Jun, [facility] [address] [place] [id number] [address] [place] [address] Jun, [facility] [address] [address] Jun, Lumbar neuritis M54.16 [facility] [address] [place] [id number] [address] [place] [address] May, Neuropathy G62.9 [facility] [address] [address] May, [facility] [address] [address] May, Neuropathy G62.9 and Hyperte nsion, benign I10 [place] [address] [address] Apr, Polyneuropathy G62.9 and Hyp ertension, benign I10 [facility] [address] [address] 17 Mar, 2018 Chronic pain syndrome G89.4 and Hypertension, benign I10 [place] [address] [address] Mar, Polyneuropathy G62.9 and Hyp ertension, benign I10 [facility] [address] [address] Feb, [facility] [address] [address] Feb, Hypertension, benign I10 [facility] [address] [place] [id number] [place] [address] Feb, Hypertension, benign I10 ; P olyneuropathy G62.9 and Primary insomnia F51.01 [facility] [address] [place] [id number] [address] [place] [address] Jan, Hypertension, benign I10 and Polyneuropathy G62.9 [facility] [address] [place] [id number] [address] [place] [address] Jan, Hypertension, benign I10 and Neuropathy G62.9 [facility] [address] [id number] [address] [place] [address] Jan, [facility] [address] [facility] [id number] [address] [place] [address] Dec, Polyneuropathy G62.9 [facility] [address] [id number] [address] [place] [address] Dec, Mood disorder F39 [facility] [address] [id number] [address] [place] [address] November, Polyneuropathy G62.9 [facility] [address] [facility] [id number] [address] [place] [id number] November, Medicare annual wellness vis it, initial Z00.00 [facility] [address] [facility] [id number] [address] [place] [address] November, Mood disorder F39 [facility] [address] [facility] [id number] [address] [place] [address] Oct, Polyneuropathy G62.9 [facility] [address] [facility] [id number] [address] [place] [address] Oct, [facility] [address] [facility] [id number] [address] [place] [address] Oct, [facility] [address] [facility] [id number] [address] [place] [address] Oct, Mood disorder F39 ; Attentio n to urostomy Z43.6 ; Chronic pain syndrome G89.4 and Polyneuropathy G62.9 [facility] [address] [id number] [address] [place] [address] Sep, Polyneuropathy G62.9 [facility] [address] [facility] [id number] [address] [place] [address] Sep, [facility] [address] [facility] [id number] [address] [place] [address] Sep, Polyneuropathy G62.9 [facility] [address] [facility] [id number] [address] [place] [address] Aug, Polyneuropathy G62.9 [facility] [address] [facility] [id number] [address] [place] [address] Aug, Malignant neoplasm of colon, unspecified part of colon C18.9 and Polyneuropathy G62.9 [facility] [address] [facility] [id number] [address] [place] [address] Aug, Neuropathy G62.9 and Polyneu ropathy G62.9 [facility] [address] [facility] [id number] [address] [place] [address] Jul, Encounter for drug screening Z02.83 [facility] [address] [facility] [id number] [address] [place] [address] Jul, Polyneuropathy G62.9 [facility] [address] [facility] [id number] [address] [place] [address] Jul, [facility] [address] [facility] [id number] [address] [place] [address] Jul, Neuropathy G62.9 and Anxiety F41.9 [facility] [address] [facility] [id number] [address] [place] [address] Jul, [facility] [address] [facility] [id number] [address] [place] [address] Jul, [facility] [address] [facility] [id number] [address] [place] [id number] Jul, [facility] [address] [facility] [id number] [address] [place] [address] Jul, Polyneuropathy G62.9 [facility] [address] [facility] [id number] [address] [place] [address] Jul, [facility] [address] [facility] [id number] [address] [place] [address] Jun, [facility] [address] [facility] [id number] [address] [place] [address] Jun, [facility] [address] [facility] [id number] [address] [place] [address] Jun, [facility] [address] [id number] [address] [place] [address] 07 Jun, 2017 Encounter for dental examina tion Z01.20 [facility] [address] [facility] [id number] [address] [place] [address] Jun, Polyneuropathy G62.9 and Anx iety F41.9 [facility] [address] [facility] [id number] [address] [place] [address] Jun, [facility] [address] [id number] [place] [address] May, Dental examination Z01.20 [facility] [address] [facility] [id number] [address] [place] [address] May, Polyneuropathy G62.9 [facility] [address] [facility] [id number] [address] [place] [address] Apr, Polyneuropathy G62.9 [facility] [address] [place] [id number] [address] [place] [address] Apr, Polyneuropathy G62.9 [facility] [address] [facility] [id number] [address] [place] [address] Apr, Hypertension, benign I10 ; P olyneuropathy G62.9 and Anxiety F41.9 [facility] [address] [facility] [id number] [address] [place] [address] Apr, Primary insomnia F51.01 and Polyneuropathy G62.9 [facility] [address] [facility] [id number] [address] [place] [address] Apr, Primary insomnia F51.01 and Polyneuropathy G62.9 [facility] [address] [id number] [address] [place] [address] Mar, Primary insomnia F51.01 [facility] [address] [id number] [address] [place] [address] Mar, [facility] [address] [id number] [address] [place] [address] Mar, Polyneuropathy G62.9 [facility] [address] [id number] [address] [place] [address] Feb, Primary insomnia F51.01 [facility] [address] [id number] [address] [place] [address] Feb, [facility] [address] [id number] [address] [place] [address] Feb, [facility] [address] [id number] [address] [place] [address] Feb, Polyneuropathy G62.9 [facility] [address] [id number] [address] [place] [address] Feb, Primary insomnia F51.01 [facility] [address] [id number] [address] [place] [address] Jan, [facility] [address] [id number] [address] [place] [address] Jan, [facility] [address] [id number] [address] [place] [address] Dec, [facility] [address] [id number] [address] [place] [address] Dec, Primary insomnia F51.01 [facility] [address] [id number] [address] [place] [address] Dec, Primary insomnia F51.01 [facility] [address] [id number] [address] [place] [address] Dec, [facility] [address] [id number] [address] [place] [address] Dec, [facility] [address] [facility] [id number] [address] [place] [address] Dec, [facility] [address] [facility] [id number] [address] [place] [phone] Dec, [facility] [address] [facility] [id number] [address] [place] [address] November, Primary insomnia F51.01 and Polyneuropathy G62.9 [facility] [address] [facility] [id number] [address] [place] [address] November, [facility] [address] [facility] [id number] [address] [place] [address] November, Abdominal pain, left lower q uadrant R10.32 [facility] [address] [facility] [id number] [address] [place] [address] November, [facility] [address] [facility] [id number] [address] [place] [address] Oct, [facility] [address] [facility] [id number] [address] [place] [address] Oct, Abdominal pain, left lower q uadrant R10.32 ; 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 and Neuropathy G62.9 [facility] [address] [facility] [id number] [address] [place] [address] Oct, [facility] [address] [facility] [id number] [address] [place] [address] Sep, [facility] [id number] [place] [id number] Sep, [facility] [address] [facility] [id number] [address] [place] [address] Sep, [facility] [address] [id number] [address] [place] [address] Aug, [facility] [address] [id number] [address] [place] [address] Aug, [facility] [address] [id number] [address] [place] [address] Aug, Abdominal pain, left lower q uadrant R10.32 ; Neuropathy G62.9 and Anxiety F41.9 [facility] [address] [place] [address] Jul, [facility] [address] [id number] [address] [place] [id number] Jul, [facility] [address] [id number] [address] [place] [id number] Jul, [facility] [address] [id number] [address] [place] [address] Jul, [facility] [address] [id number] [address] [place] [address] Jul, [facility] [address] [id number] [address] [place] [id number] Jun, [facility] [address] [id number] [address] [place] [address] May, [facility] [address] [id number] [address] [place] [address] May, [facility] [address] [id number] [address] [place] [address] Apr, [facility] [address] [id number] [address] [place] [address] Apr, Muscle spasms of both lower extremities M62.838 and Cellulitis, unspecified cellulitis site L03.90 [facility] [address] [id number] [address] [place] [address] Apr, [facility] [address] [id number] [address] [place] [id number] 23 Mar, 2016 Generalized abdominal pain R 10.84 [facility] [address] [id number] [address] [place] [address] 20 Mar, 2016 [facility] [address] [id number] [address] [place] [id number] 14 Mar, 2015 [facility] [address] [id number] [address] [place] [address] 14 Mar, 2015 [facility] [address] [id number] [address] [place] [id number] 13 Mar, 2015 [facility] [address] [id number] [address] [place] [id number] 12 Mar, 2016 [facility] [address] [id number] [address] [place] [address] 09 Mar, 2016 [facility] [address] [id number] [address] [place] [address] 06 Mar, 2016 [facility] [address] [id number] [address] [place] [id number] Feb, Other specified diseases of anus and rectum K62.89 [facility] [address] [id number] [address] [place] [address] Feb, [facility] [address] [id number] [address] [place] [address] Feb, Dizziness R42 [facility] [address] [id number] [address] [place] [id number] Feb, [facility] [address] [id number] [address] [place] [id number] Jan, Polyneuropathy G62.9 [facility] [address] [id number] [address] [place] [id number] Jan, Other specified diseases of anus and rectum K62.89 [facility] [address] [id number] [address] [place] [id number] Jan, [facility] [address] [id number] [address] [place] [address], [place] [id number] 16 Jan, 2016 [facility] [address] [id number] [address] [place] [address], [place] [id number] Jan, [facility] [address] [id number] [address] [place] [address], [place] [id number] Jan, Dizziness R42 [facility] [address] [id number] [address] [place] [address], [place] [id number] Dec, [facility] [address] [id number] [address] [place] [address], [place] [id number] Dec, [facility] [address] [id number] [address] [place] [address], [place] [id number] Dec, [facility] [address] [id number] [address] [place] [address], [place] [id number] Dec, Dizziness R42 [facility] [address] [id number] [address] [place] [address], [place] [id number] November, [facility] [address] [id number] [address] [place] [address], [place] [id number] Oct, [facility] [address] [id number] [address] [place] [address], [place] [id number] Oct, [facility] [address] [id number] [address] [place] [address], [place] [id number] Oct, [facility] [address] [id number] [address] [place] [address], [place] [id number] Oct, [facility] [address] [id number] [address] [place] [address], [place] [id number] Sep, [facility] [address] [id number] [address] [place] [address], [place] [id number] Sep, Primary insomnia F51.01 [facility] [address] [id number] [address] [place] [address], [place] [address] Sep, Primary insomnia F51.01 [facility] [address] [id number] Sep, [facility] [address] [id number] Aug, [facility] [address] [id number] Aug, [facility] [address] [id number] Aug, Primary insomnia F51.01 ; Mo od disorder F39 ; Nausea and vomiting, unspecified intactability, vomiting of unspecified type R11.2 and Diarrhea R19.7 [facility] [address] [id number] Aug, [facility] [address] [id number] Aug, Folliculitis L73.9 [facility] [address] [id number] Aug, [facility] [address] [id number] Aug, [facility] [address] [id number] Jul, Folliculitis L73.9 [facility] [address] [id number] Jul, [facility] [address] [id number] Jun, Folliculitis L73.9 [facility] [address] [id number] Jun, [facility] [address] [id number] May, Polyneuropathy G62.9 [facility] [address] [place] [id number] [address] [place] [id number] May, Other specified diseases of anus and rectum K62.89 [facility] [address] [id number] [address] [place] [id number] May, [facility] [address] [facility] & [facility] [id number] [address] [place] [address] May, Primary insomnia F51.01 [facility] [address] [id number] [address] [place] [address] May, [facility] [address] [id number] [address] [place] [address] May, [facility] [address] [facility] [facility] [id number] [address] [place] [address] Apr, Other specified diseases of anus and rectum K62.89 ; Chronic fatigue R53.82 ; Urinary tract infection, site not specified N39.0 and Enterococcus as the cause of diseases classified elsewhere B95.2 [facility] [address] [id number] [address] [place] [id number] 16 Apr, 2015 [facility] [address] [id number] [address] [place] [address] 15 Apr, 2015 [facility] [address] [facility] [id number] [address] [place] [id number] 14 Apr, 2015 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 [facility] [address] [id number] [address] [place] [id number] 05 Apr, 2015 [facility] [address] [id number] [address] [place] [id number] Mar, [facility] [address] [id number] [address] [place] [id number] 23 Mar, 2015 [facility] [address] [facility] [id number] [address] [place] [id number] 17 Mar, 2015 [facility] [address] [id number] [address] [place] [address] 14 Mar, 2015 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 [facility] [address] [id number] [address] [place] [id number] 12 Mar, 2015 [facility] [address] [id number] [address] [place] [address] Mar, [facility] [address] [id number] [address] [place] [address] Mar, [facility] [address] [id number] [address] [place] [address] Mar, [facility] [address] [id number] [address] [place] [address] Feb, [facility] [address] [id number] [address] [place] [address] Feb, [facility] [address] [id number] [address] [place] [address] Feb, [facility] [address] [id number] [address] [place] [address] Jan, [facility] [address] [id number] [address] [place] [address] Jan, Nausea 787.02 and Neuropathy 355.9 [facility] [address] [id number] [address] [place] [address] Jan, [facility] [address] [id number] [address] [place] [id number] Jan, [facility] [address] [id number] [address] [place] [address] Jan, [facility] [address] [id number] [address] [place] [id number] Jan, Dental examination V72.2 [facility] [address] [id number] [address] [place] [id number] Jan, [facility] [address] [id number] [address] [place] [id number] Dec, [facility] [address] [id number] [address] [place] [address], [place] [address] Dec, [facility] [address] [id number] [address] [place] [address], [place] [address] Dec, Neuropathy 355.9 [facility] [address] [id number] [address] [place] [address], [place] [address] November, [facility] [address] [id number] [address] [place] [address], [place] [address] November, [facility] [address] [id number] [address] [place] [address], [place] [address] November, [facility] [address] [id number] [address] [place] [address], [place] [address] Oct, [facility] [address] [id number] [address] [place] [address], [place] [address] Oct, [facility] [address] [id number] [address] [place] [address], [place] [address] Sep, [facility] [address] [id number] [address] [place] [address], [place] [address] Sep, [facility] [address] [id number] [address] [place] [address], [place] [address] Sep, [facility] [address] [id number] [address] [place] [address], [place] [address] Sep, [facility] [address] [id number] [address] [place] [id number] Sep, [facility] [address] [id number] [address] [place] [address], [place] [address] Sep, [facility] [address] [id number] [address] [place] [address], [place] [address] Sep, [facility] [address] [id number] [address] [place] [id number] Sep, [facility] [address] [id number] [address] [place] [address], [place] [address] Aug, 2014 [facility] [address] [id number] [address] [place] [address], [place] [address] Aug, 2014 [facility] [address] [id number] [address] [place] [address], [place] [address] Aug, 2014 [facility] [address] [id number] [address] [place] [address], [place] [address] Aug, 2014 [facility] [address] [id number] [address] [place] [address], [place] [address] Aug, [facility] [address] [id number] [address] [place] [address], [place] [address] Aug, 2014 [facility] [address] [id number] [address] [place] [address], [place] [address] Aug, [facility] [address] [id number] [address] [place] [address], [place] [address] Aug, [facility] [address] [id number] [address] [place] [address], [place] [address] Jul, [facility] [address] [id number] [address] [place] [address], [place] [address] Jul, [facility] [address] [id number] [address] [place] [address], [place] [address] Jun, [facility] [address] [id number] [address] [place] [address], [place] [address] Jun, [facility] [address] [id number] [address] [place] [address], [place] [address] Jun, [facility] [address] [id number] [address] [place] [address], [place] [address] Jun, [facility] [address] [id number] [address] [place] [address], [place] [address] Jun, [facility] [address] [id number] [address] [place] [address], [place] [address] Jun, [facility] [address] [id number] [address] [place] [address], [place] [address] Jun, [facility] [address] [id number] [address] [place] [address], [place] [address] Jun, [facility] [address] [id number] [address] [place] [address], [place] [address] Jun, [facility] [address] [id number] [address] [place] [address], [place] [address] Jun, [facility] [address] [id number] [address] [place] [address], [place] [address] Jun, [facility] [address] [id number] [address] [place] [address], [place] [address] May, [facility] [address] [id number] [address] [place] [address], [place] [address] May, [facility] [address] [id number] [address] [place] [address], [place] [address] May, [facility] [address] [id number] [address] [place] [address], [place] [address] May, [facility] [address] [id number] [address] [place] [address], [place] [address] May, [facility] [address] [id number] [address] [place] [address], [place] [address] May, [facility] [address] [id number] [address] [place] [address], [place] [address] May, [facility] [address] [id number] [address] [place] [address], [place] [address] May, [facility] [address] [id number] [address] [place] [address], [place] [address] May, [facility] [address] [id number] [address] [place] [address], [place] [address] Apr, [facility] [address] [id number] [address] [place] [address], [place] [address] Apr, [facility] [address] [id number] [address] [place] [address], [place] [address] Apr, [facility] [address] [id number] [address] [place] [address], [place] [address] Apr, [facility] [address] [id number] [address] [place] [address], [place] [address] Apr, [facility] [address] [id number] [address] [place] [address], [place] [address] Mar, [facility] [address] [id number] [address] [place] [address], [place] [address] Mar, [facility] [address] [id number] [address] [place] [address], [place] [address] Feb, [facility] [address] [id number] [address] [place] [address], [place] [address] Feb, [facility] [address] [id number] [address] [place] [address], [place] [address] Feb, [facility] [address] [id number] [address] [place] [address], [place] [address] Feb, [facility] [address] [id number] [address] [place] [address], [place] [address] Feb, [facility] [address] [id number] [address] [place] [address], [place] [address] Feb, [facility] [address] [id number] [address] [place] [address], [place] [address] Jan, [facility] [address] [id number] [address] [place] [address], [place] [address] Jan, [facility] [address] [id number] [address] [place] [address], [place] [address] Jan, [facility] [address] [id number] [address] [place] [address], [place] [address] Jan, [facility] [address] [id number] [facility] [address] Jan, [facility] [address] [id number] [facility] [place] [address] Jan, [facility] [address] [id number] [facility] [place] [address] Jan, [facility] [address] [id number] [address] [place] [address], [place] [address] Jan, [facility] [address] [id number] [address] [place] [address], [place] [address] Jan, [facility] [address] [id number] [address] [place] [address], [place] [address] Jan, [facility] [address] [id number] [address] [place] [address], [place] [address] Jan, [facility] [address] [id number] [address] [place] [address], [place] [address] Dec, [facility] [address] [id number] [address] [place] [address], [place] [address] Dec, [facility] [address] [id number] [address] [place] [address], [place] [address] Dec, [facility] [address] [id number] [address] [place] [address], [place] [address] Dec, [facility] [address] [id number] [address] [place] [address], [place] [address] Dec, [facility] [address] [id number] [address] [place] [address], [place] [address] Dec, [facility] [address] [id number] [address] [place] [address], [place] [address] November, [facility] [address] [id number] [address] [place] [address], [place] [address] November, [facility] [address] [id number] [facility] [place] [address] 15 Nov, 2013 [facility] [address] [id number] [address] [place] [address], [place] [address] November, [facility] [address] [id number] [address] [place] [address], [place] [address] November, [facility] [address] [id number] [address] [place] [address], [place] [address] November, [facility] [address] [id number] [address] [place] [address], [place] [address] Oct, [facility] [address] [id number] [address] [place] [address], [place] [address] Oct, [facility] [address] [id number] [address] [place] [address], [place] [address] Oct, [facility] [address] [id number] [address] [place] [address], [place] [address] Oct, [facility] [address] [id number] [address] [place] [address], [place] [address] 17 Sep, 2013 [facility] [address] [id number] [address] [place] [address], [place] [address] 17 Sep, 2013 [facility] [address] [id number] [address] [place] [address], [place] [address] Sep, [facility] [address] [id number] [address] [place] [address], [place] [address] Sep, [facility] [address] [id number] [address] [place] [address], [place] [address] Sep, [facility] [address] [id number] [address] [place] [address], [place] [address] Aug, [facility] [address] [id number] [address] [place] [address], [place] [address] Aug, [facility] [address] [id number] [address] [place] [address], [place] [address] Aug, [facility] [address] [id number] [address] [place] [address], [place] [address] Aug, [facility] [address] [id number] [address] [place] [address], [place] [address] Aug, [facility] [address] [place] [id number] May, [facility] [address] [id number] [address] [place] [address], [place] [address] May, [facility] [address] [id number] [address] [place] [address], [place] [address] May, [facility] [address] [id number] [address] [place] [address], [place] [address] May, [facility] [address] [id number] [address] [place] [address], [place] [address] May, [facility] [address] [id number] [address] [place] [address], [place] [address] Apr, [facility] [address] [id number] [address] [place] [address], [place] [address] Apr, [facility] [address] [id number] [address] [place] [address], [place] [address] Apr, [facility] [address] [id number] [address] [place] [address] Apr, [facility] [address] [id number] [address] [place] [address] Apr, [facility] [address] [id number] [address] [place] [address], [place] [address] Apr, [facility] [address] [id number] [address] [place] [address], [place] [address] Apr, [facility] [address] [id number] [address] [place] [address] Mar, [facility] [address] [id number] [address] [place] [address] 25 Mar, 2013 [facility] [address] [id number] [address] [place] [address], [place] [address] 24 Mar, 2013 [facility] [address] [id number] [address] [place] [address], [place] [address] 16 Mar, 2013 [facility] [address] [id number] [address] [place] [address], [place] [address] Mar, [facility] [address] [id number] [address] [place] [address], [place] [address] 06 Mar, 2013 [facility] [address] [id number] [address] [place] [address], [place] [address] Feb, [facility] [address] [id number] [address] [place] [address], [place] [address] Feb, [facility] [address] [id number] [address] [place] [address], [place] [address] Feb, [facility] [address] [id number] [address] [place] [address], [place] [address] Feb, [facility] [address] [id number] [address] [place] [address], [place] [address] Feb, [facility] [address] [id number] [address] [place] [address], [place] [address] Feb, [facility] [address] [id number] [address] [place] [address], [place] [address] Jan, [facility] [address] [id number] [address] [place] [address], [place] [address] Dec, [facility] [address] [id number] [address] [place] [address], [place] [address] Dec, [facility] [address] [id number] [address] [place] [address], [place] [address] Dec, [facility] [address] [id number] [address] [place] [address], [place] [address] Dec, [facility] [address] [id number] [address] [place] [address], [place] [address] 19 Dec, 2012 [facility] [address] [id number] [address] [place] [address], [place] [address] 18 Dec, 2012 [facility] [address] [id number] [address] [place] [address], [place] [address] 17 Dec, 2012 [facility] [address] [id number] [address] [place] [address], [place] [address] Dec, [facility] [address] [id number] [address] [place] [address], [place] [address] Dec, [facility] [address] [id number] [address] [place] [address], [place] [address] November, [facility] [address] [id number] [address] [place] [address], [place] [id number] November, [facility] [address] [id number] [address] [place] [address], [place] [id number] Oct, [facility] [address] [id number] [address] [place] [address], [place] [id number] Sep, [facility] [address] [id number] [address] [place] [address], [place] [id number] Sep, [facility] [address] [id number] [address] [place] [address], [place] [id number] Sep, [facility] [address] [id number] [address] [place] [address], [place] [id number] Sep, [facility] [address] [id number] [address] [place] [address], [place] [id number] Aug, [facility] [address] [id number] [address] [place] [address], [place] [id number] Aug, [facility] [address] [id number] [address] [place] [address], [place] [id number] Jul, [facility] [address] [id number] [address] [place] [address], [place] [id number] Jul, [facility] [address] [facility] [facility] [id number] [address] [place] [id number] Jul, [facility] [address] [facility] [address] [facility] [id number] [address] [place] [id number] Sep, [facility] [address] [facility] [address] [facility] [id number] [address] [place] [id number] Sep, [facility] [address] [facility] [address] [facility] [id number] [address] [place] [id number] Sep, IMMUNIZATIONS No Known Immunizations SOCIAL HISTORY [...] bowel obstruction, Dehydration -[facility] 01/01/17 Hospitalization History [facility]- UTI/Sepsis 01/18/[address] [facility] [place] - infection 4 days 05/2018
--- OUTSIDE RECORDS SUMMARY | 2020-01-14 23:06 | XMS REPORT ---
Author Author Melvin BENTLEY Organization [facility] Address [address] [place] [address] Care Team Providers Care Fryer Line Helper Name Role Phone SHEREELINDA Unavailable PROBLEMS Type Condition ICD9-CM Code PYD22-AZ Code Onset Dates Condition S tatus SNOMED Code Problem Incontinence of feces, unspecified fecal incontinence type R15.9 Active 52536770 Problem Primary insomnia F51.01 Active 193 126092 Problem Hydronephrosis with ureteral stricture, not else where classified N13.1 Active 22157135 Problem Chronic fatigue, unspecified R53.82 A ctive 395351066 Problem Hypertension, benign I10 Active 96885758 Problem Mood disorder F39 Active 629218 05 Problem Neuropathy G62.9 Active 068630044 Problem Chronic pain syndrome G89.4 Active 099928785 Problem Abdominal pain, left lower quadrant R10.32 Active 419392767 Problem 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 Active 148871770 Problem 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 740367903 Problem Anxiety F41.9 Active 79187911 Problem Polyneuropathy G62.9 Active 16245 000 Problem Malignant neoplasm of colon, unspecified part of colon C18.9 Active 353218285 Problem Attention to urostomy Z43.6 Active 363706671 ALLERGIES No Information ENCOUNTERS Encounter Location Date Diagnosis [facility] [address] [facility] [id number] [address] [place] [phone] Mar, [facility] [address] [facility] [id number] [address] [place] [phone] Feb, Neuropathy G62.9 and Encount er for Medicare annual wellness exam Z00.00 [facility] [address] [facility] [id number] [address] [place] [phone] Feb, Primary insomnia F51.01 and High risk medication use Z79.899 [facility] [address] [id number] [address] [place] [phone] Jan, [facility] [address] [id number] [address] [place] [phone] Jan, Neuropathy G62.9 [facility] [address] [id number] [address] [place] [phone] Dec, [facility] [address] [id number] [address] [place] [phone] Dec, Encounter for Medicare annua l wellness exam Z00.00 and Neuropathy G62.9 [facility] [address] [id number] [address] [place] [phone] November, [facility] [address] [id number] [address] [place] [phone] November, Encounter for Medicare annua l wellness exam Z00.00 ; 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 ; Mood disorder F39 ; Chronic fatigue, unspecified R53.82 and Neuropathy G62.9 [facility] [address] [id number] [address] [place] [phone] November, Neuropathy G62.9 [facility] [address] [id number] [address] [place] [phone] Oct, Neuropathy G62.9 [facility] [address] [id number] [address] [place] [phone] Oct, Hypertension, benign I10 and Anxiety F41.9 [facility] [address] [id number] [address] [place] [phone] Oct, [facility] [address] [id number] [address] [place] [phone] Oct, [facility] [address] [id number] [address] [place] [phone] Oct, [facility] [address] [id number] [address] [place] [phone] Oct, Neuropathy G62.9 [facility] [address] [facility] [id number] [address] [place] [phone] Sep, [facility] [address] [id number] [address] [place] [phone] Sep, Neuropathy G62.9 [facility] [address] [facility] [id number] [address] [place] [phone] Sep, [facility] [address] [facility] [id number] [address] [place] [phone] Sep, H/O malignant carcinoid tumo r of rectum Z85.040 and Primary insomnia F51.01 [facility] [address] [facility] [id number] [address] [place] [phone] Aug, [facility] [address] [facility] [id number] [address] [place] [phone] Aug, Neuropathy G62.9 [facility] [address] [facility] [id number] [address] [place] [phone] Aug, [facility] [address] [facility] [id number] [address] [place] [phone] Jul, Non-recurrent acute suppurat francine otitis media of left ear without spontaneous rupture of tympanic membrane H66.002 [facility] [address] [facility] [id number] [address] [place] [phone] Jul, Neuropathy G62.9 [facility] [address] [facility] [id number] [address] [place] [phone] Jun, [facility] [address] [facility] [id number] [address] [place] [phone] Jun, [facility] [address] [facility] [id number] [address] [place] [phone] Jun, Neuropathy G62.9 [facility] [address] [facility] [id number] [address] [place] [phone] Jun, [facility] [address] [place] [id number] [address] [place] [phone] Jun, [facility] [address] [address] Jun, Lumbar neuritis M54.16 [facility] [address] [place] [id number] [address] [place] [phone] May, Neuropathy G62.9 [facility] [address] [phone] May, [facility] [address] [phone] May, Neuropathy G62.9 and Hyperte nsion, benign I10 [place] [address] [phone] Apr, Polyneuropathy G62.9 and Hyp ertension, benign I10 [facility] [address] [address] 17 Mar, 2018 Chronic pain syndrome G89.4 and Hypertension, benign I10 [place] [address] [phone] Mar, Polyneuropathy G62.9 and Hyp ertension, benign I10 [facility] [address] [id number] Feb, [facility] [address] [phone] Feb, Hypertension, benign I10 [facility] [address] [place] [id number] [place] [phone] Feb, Hypertension, benign I10 ; P olyneuropathy G62.9 and Primary insomnia F51.01 [facility] [address] [place] [id number] [address] [place] [phone] Jan, Hypertension, benign I10 and Polyneuropathy G62.9 [facility] [address] [place] [id number] [address] [place] [phone] Jan, Hypertension, benign I10 and Neuropathy G62.9 [facility] [address] [id number] [address] [place] [phone] Jan, [facility] [address] [facility] [id number] [address] [place] [phone] Dec, Polyneuropathy G62.9 [facility] [address] [id number] [address] [place] [phone] Dec, Mood disorder F39 [facility] [address] [id number] [address] [place] [phone] November, Polyneuropathy G62.9 [facility] [address] [facility] [id number] [address] [place] [phone] November, Medicare annual wellness vis it, initial Z00.00 [facility] [address] [facility] [id number] [address] [place] [phone] November, Mood disorder F39 [facility] [address] [facility] [id number] [address] [place] [phone] Oct, Polyneuropathy G62.9 [facility] [address] [facility] [id number] [address] [place] [phone] Oct, [facility] [address] [facility] [id number] [address] [place] [phone] Oct, [facility] [address] [facility] [id number] [address] [place] [phone] Oct, Mood disorder F39 ; Attentio n to urostomy Z43.6 ; Chronic pain syndrome G89.4 and Polyneuropathy G62.9 [facility] [address] [id number] [address] [place] [phone] Sep, Polyneuropathy G62.9 [facility] [address] [facility] [id number] [address] [place] [phone] Sep, [facility] [address] [facility] [id number] [address] [place] [phone] Sep, Polyneuropathy G62.9 [facility] [address] [facility] [id number] [address] [place] [phone] Aug, Polyneuropathy G62.9 [facility] [address] [facility] [id number] [address] [place] [phone] Aug, Malignant neoplasm of colon, unspecified part of colon C18.9 and Polyneuropathy G62.9 [facility] [address] [facility] [id number] [address] [place] [phone] Aug, Neuropathy G62.9 and Polyneu ropathy G62.9 [facility] [address] [facility] [id number] [address] [place] [phone] Jul, Encounter for drug screening Z02.83 [facility] [address] [facility] [id number] [address] [place] [phone] Jul, Polyneuropathy G62.9 [facility] [address] [facility] [id number] [address] [place] [phone] Jul, [facility] [address] [facility] [id number] [address] [place] [phone] Jul, Neuropathy G62.9 and Anxiety F41.9 [facility] [address] [facility] [id number] [address] [place] [phone] Jul, [facility] [address] [facility] [id number] [address] [place] [phone] Jul, [facility] [address] [facility] [id number] [address] [place] [phone] Jul, [facility] [address] [facility] [id number] [address] [place] [phone] Jul, Polyneuropathy G62.9 [facility] [address] [facility] [id number] [address] [place] [phone] Jul, [facility] [address] [facility] [id number] [address] [place] [phone] Jun, [facility] [address] [facility] [id number] [address] [place] [phone] Jun, [facility] [address] [facility] [id number] [address] [place] [phone] Jun, [facility] [address] [id number] [place] [phone] 07 Jun, 2017 Encounter for dental examina tion Z01.20 [facility] [address] [facility] [id number] [address] [place] [phone] Jun, Polyneuropathy G62.9 and Anx iety F41.9 [facility] [address] [facility] [id number] [address] [place] [phone] Jun, [facility] [address] [id number] [place] [address] May, Dental examination Z01.20 [facility] [address] [facility] [id number] [address] [place] [phone] May, Polyneuropathy G62.9 [facility] [address] [facility] [id number] [address] [place] [phone] Apr, Polyneuropathy G62.9 [facility] [address] [place] [id number] [address] [place] [phone] Apr, Polyneuropathy G62.9 [facility] [address] [facility] [id number] [address] [place] [phone] Apr, Hypertension, benign I10 ; P olyneuropathy G62.9 and Anxiety F41.9 [facility] [address] [facility] [id number] [address] [place] [phone] Apr, Primary insomnia F51.01 and Polyneuropathy G62.9 [facility] [address] [facility] [id number] [address] [place] [phone] Apr, Primary insomnia F51.01 and Polyneuropathy G62.9 [facility] [address] [id number] [address] [place] [phone] Mar, Primary insomnia F51.01 [facility] [address] [id number] [address] [place] [phone] Mar, [facility] [address] [id number] [address] [place] [phone] Mar, Polyneuropathy G62.9 [facility] [address] [id number] [address] [place] [phone] Feb, Primary insomnia F51.01 [facility] [address] [id number] [address] [place] [phone] Feb, [facility] [address] [id number] [address] [place] [phone] Feb, [facility] [address] [id number] [address] [place] [phone] Feb, Polyneuropathy G62.9 [facility] [address] [id number] [address] [place] [phone] Feb, Primary insomnia F51.01 [facility] [address] [id number] [address] [place] [phone] Jan, [facility] [address] [id number] [address] [place] [phone] Jan, [facility] [address] [id number] [address] [place] [phone] Dec, [facility] [address] [id number] [address] [place] [phone] Dec, Primary insomnia F51.01 [facility] [address] [id number] [address] [place] [phone] Dec, Primary insomnia F51.01 [facility] [address] [id number] [address] [place] [phone] Dec, [facility] [address] [id number] [address] [place] [phone] Dec, [facility] [address] [facility] [id number] [address] [place] [phone] Dec, [facility] [address] [facility] [id number] [address] [place] [phone] Dec, [facility] [address] [facility] [id number] [address] [place] [phone] November, Primary insomnia F51.01 and Polyneuropathy G62.9 [facility] [address] [facility] [id number] [address] [place] [phone] November, [facility] [address] [facility] [id number] [address] [place] [phone] November, Abdominal pain, left lower q uadrant R10.32 [facility] [address] [facility] [id number] [address] [place] [phone] November, [facility] [address] [facility] [id number] [address] [place] [phone] Oct, [facility] [address] [facility] [id number] [address] [place] [phone] Oct, Abdominal pain, left lower q uadrant R10.32 ; 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 and Neuropathy G62.9 [facility] [address] [facility] [id number] [address] [place] [phone] Oct, [facility] [address] [facility] [id number] [address] [place] [phone] Sep, [facility] [id number] [place] [id number] Sep, [facility] [address] [facility] [id number] [address] [place] [phone] Sep, [facility] [address] [id number] [address] [place] [phone] Aug, [facility] [address] [id number] [address] [place] [phone] Aug, [facility] [address] [id number] [address] [place] [phone] Aug, Abdominal pain, left lower q uadrant R10.32 ; Neuropathy G62.9 and Anxiety F41.9 [facility] [address] [place] [address] Jul, [facility] [address] [id number] [address] [place] [phone] Jul, [facility] [address] [id number] [address] [place] [phone] Jul, [facility] [address] [id number] [address] [place] [phone] Jul, [facility] [address] [id number] [address] [place] [phone] Jul, [facility] [address] [id number] [address] [place] [phone] Jun, [facility] [address] [id number] [address] [place] [phone] May, [facility] [address] [id number] [address] [place] [phone] May, [facility] [address] [id number] [address] [place] [phone] Apr, [facility] [address] [id number] [address] [place] [phone] Apr, Muscle spasms of both lower extremities M62.838 and Cellulitis, unspecified cellulitis site L03.90 [facility] [address] [id number] [address] [place] [id number] Apr, [facility] [address] [id number] [address] [place] [id number] 23 Mar, 2016 Generalized abdominal pain R 10.84 [facility] [address] [id number] [address] [place] [phone] 20 Mar, 2016 [facility] [address] [id number] [address] [place] [id number] 14 Mar, 2015 [facility] [address] [id number] [address] [place] [id number] 14 Mar, 2015 [facility] [address] [id number] [address] [place] [id number] 13 Mar, 2015 [facility] [address] [id number] [address] [place] [id number] 12 Mar, 2016 [facility] [address] [id number] [address] [place] [id number] 09 Mar, 2016 [facility] [address] [id number] [address] [place] [phone] 06 Mar, 2016 [facility] [address] [id number] [address] [place] [id number] Feb, Other specified diseases of anus and rectum K62.89 [facility] [address] [id number] [address] [place] [id number] Feb, [facility] [address] [id number] [address] [place] [phone] Feb, Dizziness R42 [facility] [address] [id number] [address] [place] [phone] Feb, [facility] [address] [id number] [address] [place] [id number] Jan, Polyneuropathy G62.9 [facility] [address] [id number] [address] [place] [id number] Jan, Other specified diseases of anus and rectum K62.89 [facility] [address] [id number] [address] [place] [phone] Jan, [facility] [address] [id number] [address] [place] [address], [place] [phone] 16 Jan, 2016 [facility] [address] [id number] [address] [place] [address], [place] [phone] Jan, [facility] [address] [id number] [address] [place] [address], [place] [id number] Jan, Dizziness R42 [facility] [address] [id number] [address] [place] [address], [place] [id number] Dec, [facility] [address] [id number] [address] [place] [address], [place] [id number] Dec, [facility] [address] [id number] [address] [place] [address], [place] [phone] Dec, [facility] [address] [id number] [address] [place] [address], [place] [phone] Dec, Dizziness R42 [facility] [address] [id number] [address] [place] [address], [place] [address] November, [facility] [address] [id number] [address] [place] [address], [place] [phone] Oct, [facility] [address] [id number] [address] [place] [address], [place] [id number] Oct, [facility] [address] [id number] [address] [place] [address], [place] [id number] Oct, [facility] [address] [id number] [address] [place] [address], [place] [id number] Oct, [facility] [address] [id number] [address] [place] [address], [place] [id number] Sep, [facility] [address] [id number] [address] [place] [address], [place] [address] Sep, Primary insomnia F51.01 [facility] [address] [id number] [address] [place] [address], [place] [address] Sep, Primary insomnia F51.01 [facility] [address] [id number] Sep, [facility] [address] [id number] Aug, [facility] [address] [id number] Aug, [facility] [facility] [address] [address] Aug, Primary insomnia F51.01 ; Mo od disorder F39 ; Nausea and vomiting, unspecified intactability, vomiting of unspecified type R11.2 and Diarrhea R19.7 [facility] [address] [address] Aug, [facility] [address] [address] Aug, Folliculitis L73.9 [facility] [address] [address] Aug, [facility] [address] [address] Aug, [facility] [address] [address] Jul, Folliculitis L73.9 [facility] [address] [address] Jul, [facility] [address] [address] Jun, Folliculitis L73.9 [facility] [address] [address] Jun, [facility] [address] [address] May, Polyneuropathy G62.9 [facility] [address] [place] [id number] [address] [place] [address] May, Other specified diseases of anus and rectum K62.89 [facility] [address] [id number] [address] [place] [id number] May, [facility] [address] [facility] [id number] [address] [place] [address] May, Primary insomnia F51.01 [facility] [address] [id number] [address] [place] [address] May, [facility] [address] [id number] [address] [place] [id number] May, [facility] [address] [facility] [id number] [address] [place] [address] Apr, Other specified diseases of anus and rectum K62.89 ; Chronic fatigue R53.82 ; Urinary tract infection, site not specified N39.0 and Enterococcus as the cause of diseases classified elsewhere B95.2 [facility] [address] [id number] [address] [place] [id number] 16 Apr, 2015 [facility] [address] [id number] [address] [place] [id number] 15 Apr, 2015 [facility] [address] [facility] [id number] [address] [place] [id number] 14 Apr, 2015 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 [facility] [address] [id number] [address] [place] [id number] 05 Apr, 2015 [facility] [address] [id number] [address] [place] [id number] Mar, [facility] [address] [id number] [address] [place] [id number] 23 Mar, 2015 [facility] [address] [facility] [id number] [address] [place] [id number] 17 Mar, 2015 [facility] [address] [id number] [address] [place] [id number] 14 Mar, 2015 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 [facility] [address] [id number] [address] [place] [id number] 12 Mar, 2015 [facility] [address] [id number] [address] [place] [id number] Mar, [facility] [address] [id number] [address] [place] [id number] Mar, [facility] [address] [id number] [address] [place] [id number] Mar, [facility] [address] [id number] [address] [place] [phone] Feb, [facility] [address] [id number] [address] [place] [id number] Feb, [facility] [address] [id number] [address] [place] [id number] Feb, [facility] [address] [id number] [address] [place] [id number] Jan, [facility] [address] [id number] [address] [place] [id number] Jan, Nausea 787.02 and Neuropathy 355.9 [facility] [address] [id number] [address] [place] [phone] Jan, [facility] [address] [id number] [address] [place] [address] Jan, [facility] [address] [id number] [address] [place] [phone] Jan, [facility] [address] [id number] [address] [place] [id number] Jan, Dental examination V72.2 [facility] [address] [id number] [address] [place] [phone] Jan, [facility] [address] [id number] [address] [place] [id number] Dec, [facility] [address] [id number] [address] [place] [address], [place] [address] Dec, [facility] [address] [id number] [address] [place] [address], [place] [address] Dec, Neuropathy 355.9 [facility] [address] [id number] [address] [place] [address], [place] [address] November, [facility] [address] [id number] [address] [place] [address], [place] [address] November, [facility] [address] [id number] [address] [place] [address], [place] [address] November, [facility] [address] [id number] [address] [place] [address], [place] [address] Oct, [facility] [address] [id number] [address] [place] [address], [place] [address] Oct, [facility] [address] [id number] [address] [place] [address], [place] [address] Sep, [facility] [address] [id number] [address] [place] [address], [place] [address] Sep, [facility] [address] [id number] [address] [place] [address], [place] [address] Sep, [facility] [address] [id number] [address] [place] [address], [place] [address] Sep, [facility] [address] [id number] [address] [place] [id number] Sep, [facility] [address] [id number] [address] [place] [address], [place] [address] Sep, [facility] [address] [id number] [address] [place] [address], [place] [address] Sep, [facility] [address] [id number] [address] [place] [phone] Sep, [facility] [address] [id number] [address] [place] [address], [place] [address] Aug, 2014 [facility] [address] [id number] [address] [place] [address], [place] [address] Aug, 2014 [facility] [address] [id number] [address] [place] [address], [place] [address] Aug, 2014 [facility] [address] [id number] [address] [place] [address], [place] [address] Aug, 2014 [facility] [address] [id number] [address] [place] [address], [place] [address] Aug, [facility] [address] [id number] [address] [place] [address], [place] [address] Aug, 2014 [facility] [address] [id number] [address] [place] [address], [place] [address] Aug, [facility] [address] [id number] [address] [place] [address], [place] [address] Aug, [facility] [address] [id number] [address] [place] [address], [place] [address] Jul, [facility] [address] [id number] [address] [place] [address], [place] [address] Jul, [facility] [address] [id number] [address] [place] [address], [place] [address] Jun, [facility] [address] [id number] [address] [place] [address], [place] [address] Jun, [facility] [address] [id number] [address] [place] [address], [place] [address] Jun, [facility] [address] [id number] [address] [place] [address], [place] [address] Jun, [facility] [address] [id number] [address] [place] [address], [place] [address] Jun, [facility] [address] [id number] [address] [place] [address], [place] [address] Jun, [facility] [address] [id number] [address] [place] [address], [place] [address] Jun, [facility] [address] [id number] [address] [place] [address], [place] [address] Jun, [facility] [address] [id number] [address] [place] [address], [place] [address] Jun, [facility] [address] [id number] [address] [place] [address], [place] [address] Jun, [facility] [address] [id number] [address] [place] [address], [place] [address] Jun, [facility] [address] [id number] [address] [place] [address], [place] [address] May, [facility] [address] [id number] [address] [place] [address], [place] [address] May, [facility] [address] [id number] [address] [place] [address], [place] [address] May, [facility] [address] [id number] [address] [place] [address], [place] [address] May, [facility] [address] [id number] [address] [place] [address], [place] [address] May, [facility] [address] [id number] [address] [place] [address], [place] [address] May, [facility] [address] [id number] [address] [place] [address], [place] [address] May, [facility] [address] [id number] [address] [place] [address], [place] [address] May, [facility] [address] [id number] [address] [place] [address], [place] [address] May, [facility] [address] [id number] [address] [place] [address], [place] [address] Apr, [facility] [address] [id number] [address] [place] [address], [place] [address] Apr, [facility] [address] [id number] [address] [place] [address], [place] [address] Apr, [facility] [address] [id number] [address] [place] [address], [place] [address] Apr, [facility] [address] [id number] [address] [place] [address], [place] [address] Apr, [facility] [address] [id number] [address] [place] [address], [place] [address] Mar, [facility] [address] [id number] [address] [place] [address], [place] [address] Mar, [facility] [address] [id number] [address] [place] [address], [place] [address] Feb, [facility] [address] [id number] [address] [place] [address], [place] [address] Feb, [facility] [address] [id number] [address] [place] [address], [place] [address] Feb, [facility] [address] [id number] [address] [place] [address], [place] [address] Feb, [facility] [address] [id number] [address] [place] [address], [place] [address] Feb, [facility] [address] [id number] [address] [place] [address], [place] [address] Feb, [facility] [address] [id number] [address] [place] [address], [place] [address] Jan, [facility] [address] [id number] [address] [place] [address], [place] [address] Jan, [facility] [address] [id number] [address] [place] [address], [place] [address] Jan, [facility] [address] [id number] [address] [place] [address], [place] [address] Jan, [facility] [address] [id number] [facility] [place] [address] Jan, [facility] [address] [id number] [facility] [place] [address] Jan, [facility] [address] [id number] [facility] [place] [address] Jan, [facility] [address] [id number] [address] [place] [address], [place] [address] Jan, [facility] [address] [id number] [address] [place] [address], [place] [address] Jan, [facility] [address] [id number] [address] [place] [address], [place] [address] Jan, [facility] [address] [id number] [address] [place] [address], [place] [address] Jan, [facility] [address] [id number] [address] [place] [address], [place] [address] Dec, [facility] [address] [id number] [address] [place] [address], [place] [address] Dec, [facility] [address] [id number] [address] [place] [address], [place] [address] Dec, [facility] [address] [id number] [address] [place] [address], [place] [address] Dec, [facility] [address] [id number] [address] [place] [address], [place] [address] Dec, [facility] [address] [id number] [address] [place] [address], [place] [address] Dec, [facility] [address] [id number] [address] [place] [address], [place] [address] November, [facility] [address] [id number] [address] [place] [address], [place] [address] November, [facility] [address] [id number] [facility] [place] [address] 15 Nov, 2013 [facility] [address] [id number] [address] [place] [address], [place] [address] November, [facility] [address] [id number] [address] [place] [address], [place] [address] November, [facility] [address] [id number] [address] [place] [address], [place] [address] November, [facility] [address] [id number] [address] [place] [address], [place] [address] Oct, [facility] [address] [id number] [address] [place] [address], [place] [address] Oct, [facility] [address] [id number] [address] [place] [address], [place] [address] Oct, [facility] [address] [id number] [address] [place] [address], [place] [address] Oct, [facility] [address] [id number] [address] [place] [address], [place] [address] 17 Sep, 2013 [facility] [address] [id number] [address] [place] [address], [place] [address] 17 Sep, 2013 [facility] [address] [id number] [address] [place] [address], [place] [address] Sep, [facility] [address] [id number] [address] [place] [address], [place] [address] Sep, [facility] [address] [id number] [address] [place] [address], [place] [address] Sep, [facility] [address] [id number] [address] [place] [address], [place] [address] Aug, [facility] [address] [id number] [address] [place] [address], [place] [address] Aug, [facility] [address] [id number] [address] [place] [address], [place] [address] Aug, [facility] [address] [id number] [address] [place] [address], [place] [address] Aug, [facility] [address] [id number] [address] [place] [address], [place] [address] Aug, [facility] [address] [place] [id number] May, [facility] [address] [id number] [address] [place] [address], [place] [address] May, [facility] [address] [id number] [address] [place] [address], [place] [address] May, [facility] [address] [id number] [address] [place] [address], [place] [address] May, [facility] [address] [id number] [address] [place] [address], [place] [address] May, [facility] [address] [id number] [address] [place] [address], [place] [address] Apr, [facility] [address] [id number] [address] [place] [address], [place] [address] Apr, [facility] [address] [id number] [address] [place] [address], [place] [address] Apr, [facility] [address] [id number] [address] [place] [address] Apr, [facility] [address] [id number] [address] [place] [address] Apr, [facility] [address] [id number] [address] [place] [address], [place] [address] Apr, [facility] [address] [id number] [address] [place] [address], [place] [address] Apr, [facility] [address] [id number] [address] [place] [address] Mar, [facility] [address] [id number] [address] [place] [address] 25 Mar, 2013 [facility] [address] [id number] [address] [place] [address], [place] [address] 24 Mar, 2013 [facility] [address] [id number] [address] [place] [address], [place] [address] 16 Mar, 2013 [facility] [address] [id number] [address] [place] [address], [place] [address] Mar, [facility] [address] [id number] [address] [place] [address], [place] [address] 06 Mar, 2013 [facility] [address] [id number] [address] [place] [address], [place] [address] Feb, [facility] [address] [id number] [address] [place] [address], [place] [address] Feb, [facility] [address] [id number] [address] [place] [address], [place] [address] Feb, [facility] [address] [id number] [address] [place] [address], [place] [address] Feb, [facility] [address] [id number] [address] [place] [address], [place] [address] Feb, [facility] [address] [id number] [address] [place] [address], [place] [address] Feb, [facility] [address] [id number] [address] [place] [address], [place] [address] Jan, [facility] [address] [id number] [address] [place] [address], [place] [address] Dec, [facility] [address] [id number] [address] [place] [address], [place] [address] Dec, [facility] [address] [id number] [address] [place] [address], [place] [address] Dec, [facility] [address] [id number] [address] [place] [address], [place] [address] Dec, [facility] [address] [id number] [address] [place] [address], [place] [address] 19 Dec, 2012 [facility] [address] [id number] [address] [place] [address], [place] [address] 18 Dec, 2012 [facility] [address] [id number] [address] [place] [address], [place] [address] 17 Dec, 2012 [facility] [address] [id number] [address] [place] [address], [place] [address] Dec, [facility] [address] [id number] [address] [place] [address], [place] [address] Dec, [facility] [address] [id number] [address] [place] [address], [place] [address] November, [facility] [address] [id number] [address] [place] [address], [place] [address] November, [facility] [address] [id number] [address] [place] [address], [place] [address] Oct, [facility] [address] [id number] [address] [place] [address], [place] [address] Sep, [facility] [address] [id number] [address] [place] [address], [place] [address] Sep, [facility] [address] [id number] [address] [place] [address], [place] [address] Sep, [facility] [address] [id number] [address] [place] [address], [place] [address] Sep, [facility] [address] [id number] [address] [place] [address], [place] [address] Aug, [facility] [address] [id number] [address] [place] [address], [place] [address] Aug, [facility] [address] [id number] [address] [place] [address], [place] [address] Jul, [facility] [address] [id number] [address] [place] [address], [place] [address] Jul, [facility] [address] [facility] [id number] [address] [place] [id number] Jul, [facility] [address] [facility] [id number] [address] [place] [address] Sep, [facility] [address] [facility] [id number] [address] [place] [address] Sep, [facility] [address] [facility] [id number] [address] [place] [id number] Sep, IMMUNIZATIONS No Known Immunizations SOCIAL HISTORY Never Assessed REASON FOR VISIT PLAN OF CARE VITAL SIGNS Height 67 in 2014-02-25 Weight 186.2 lbs 2014-02-25 Temperature 97.8 degrees Fahrenheit 2014-02-25 Heart Rate 70 bpm 2014-02-25 Respiratory Rate 18 2014-02-25 Blood pressure systolic 152 mmHg 2014-02-25 Blood pressure diastolic 84 mmHg 2014-02-25 MEDICATIONS Unknown Medications RESULTS No Results PROCEDURES [...] bowel obstruction, Dehydration -[facility] 01/01/[address] [facility]- UTI/Sepsis 01/18/2018 Hospitalization History [facility] - infection 4 days 05/2018
--- OUTSIDE RECORDS SUMMARY | 2020-01-14 23:07 | XMS REPORT ---
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 Name Role Phone LINDA BENTLEY Unavailable PROBLEMS Type Condition ICD9-CM Code EOF36-MD Code Onset Dates Condition S tatus SNOMED Code Problem Incontinence of feces, unspecified fecal incontinence type R15.9 Active 66230749 Problem Primary insomnia F51.01 Active 193 787774 Problem Hydronephrosis with ureteral stricture, not else where classified N13.1 Active 57739921 Problem Chronic fatigue, unspecified R53.82 A ctive 563107397 Problem Hypertension, benign I10 Active 70084284 Problem Mood disorder F39 Active 180590 05 Problem Neuropathy G62.9 Active 523381418 Problem Chronic pain syndrome G89.4 Active 649990929 Problem Abdominal pain, left lower quadrant R10.32 Active 777118876 Problem 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 Active 777898149 Problem 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 461422727 Problem Anxiety F41.9 Active 07467359 Problem Polyneuropathy G62.9 Active 52376 000 Problem Malignant neoplasm of colon, unspecified part of colon C18.9 Active 452669967 Problem Attention to urostomy Z43.6 Active 764785465 ALLERGIES No Information ENCOUNTERS Encounter Location Date Diagnosis [facility] [address] [facility] [id number] [address] [place] [phone] Feb, [facility] [address] [facility] [id number] [address] [place] [id number] Jan, [facility] [address] [facility] [id number] [address] [place] [id number] Dec, [facility] [address] [facility] [id number] [address] [place] [id number] Dec, Encounter for Medicare annua l wellness exam Z00.00 and Neuropathy G62.9 [facility] [address] [id number] [address] [place] [id number] November, [facility] [address] [id number] [address] [place] [id number] November, Encounter for Medicare annua l wellness exam Z00.00 ; 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 ; Mood disorder F39 ; Chronic fatigue, unspecified R53.82 and Neuropathy G62.9 [facility] [address] [id number] [address] [place] [id number] November, Neuropathy G62.9 [facility] [address] [id number] [address] [place] [phone] Oct, Neuropathy G62.9 [facility] [address] [id number] [address] [place] [phone] Oct, Hypertension, benign I10 and Anxiety F41.9 [facility] [address] [id number] [address] [place] [phone] Oct, [facility] [address] [id number] [address] [place] [phone] Oct, [facility] [address] [id number] [address] [place] [id number] Oct, [facility] [address] [id number] [address] [place] [phone] Oct, Neuropathy G62.9 [facility] [address] [id number] [address] [place] [id number] Sep, [facility] [address] [id number] [address] [place] [phone] Sep, Neuropathy G62.9 [facility] [address] [id number] [address] [place] [phone] Sep, [facility] [address] [id number] [address] [place] [id number] Sep, H/O malignant carcinoid tumo r of rectum Z85.040 and Primary insomnia F51.01 [facility] [address] [id number] [address] [place] [phone] Aug, [facility] [address] [id number] [address] [place] [phone] Aug, Neuropathy G62.9 [facility] [address] [id number] [address] [place] [phone] Aug, [facility] [address] [facility] [id number] [address] [place] [id number] Jul, Non-recurrent acute suppurat francine otitis media of left ear without spontaneous rupture of tympanic membrane H66.002 [facility] [address] [facility] [id number] [address] [place] [id number] Jul, Neuropathy G62.9 [facility] [address] [facility] [id number] [address] [place] [id number] Jun, [facility] [address] [id number] [address] [place] [phone] Jun, [facility] [address] [facility] [id number] [address] [place] [id number] Jun, Neuropathy G62.9 [facility] [address] [facility] [id number] [address] [place] [phone] Jun, [facility] [address] [facility] [id number] [address] [place] [phone] Jun, [facility] [address] [facility] [id number] [address] [place] [phone] Jun, Lumbar neuritis M54.16 [facility] [address] [facility] [id number] [address] [place] [id number] May, Neuropathy G62.9 [facility] [address] [facility] [id number] [address] [place] [phone] May, [facility] [address] [place] [id number] [address] [place] [phone] 05 May, 2018 Neuropathy G62.9 and Hyperte nsion, benign I10 [facility] [address] [place] [id number] [address] [place] [phone] 09 Apr, 2018 Polyneuropathy G62.9 and Hyp ertension, benign I10 [facility] [address] [place] [id number] [place] [phone] 17 Mar, 2018 Chronic pain syndrome G89.4 and Hypertension, benign I10 [place] [address] [place] [id number] [place] [phone] 11 Mar, 2018 Polyneuropathy G62.9 and Hyp ertension, benign I10 [place] [address] [place] [id number] [place] [phone] 27 Feb, 2018 [place] [address] [address] Feb, Hypertension, benign I10 [facility] [address] [place] [id number] [place] [phone] 15 Feb, 2018 Hypertension, benign I10 ; P olyneuropathy G62.9 and Primary insomnia F51.01 [facility] [address] [place] [id number] [address] [place] [phone] Jan, Hypertension, benign I10 and Polyneuropathy G62.9 [facility] [address] [place] [id number] [address] [place] [phone] Jan, Hypertension, benign I10 and Neuropathy G62.9 [facility] [address] [place] [id number] [address] [place] [phone] Jan, [facility] [address] [place] [id number] [address] [place] [phone] Dec, Polyneuropathy G62.9 [facility] [address] [place] [id number] [address] [place] [phone] 14 Dec, 2017 Mood disorder F39 [facility] [address] [facility] [id number] [address] [place] [id number] November, Polyneuropathy G62.9 [facility] [address] [facility] [id number] [address] [place] [id number] November, Medicare annual wellness vis it, initial Z00.00 [facility] [address] [facility] [id number] [address] [place] [phone] November, Mood disorder F39 [facility] [address] [facility] [id number] [address] [place] [id number] Oct, Polyneuropathy G62.9 [facility] [address] [facility] [id number] [address] [place] [id number] Oct, [facility] [address] [facility] [id number] [address] [place] [phone] Oct, [facility] [address] [facility] [id number] [address] [place] [phone] Oct, Mood disorder F39 ; Attentio n to urostomy Z43.6 ; Chronic pain syndrome G89.4 and Polyneuropathy G62.9 [facility] [address] [facility] [id number] [address] [place] [phone] Sep, Polyneuropathy G62.9 [facility] [address] [facility] [id number] [address] [place] [phone] Sep, [facility] [address] [facility] [id number] [address] [place] [phone] Sep, Polyneuropathy G62.9 [facility] [address] [facility] [id number] [address] [place] [phone] Aug, Polyneuropathy G62.9 [facility] [address] [facility] [id number] [address] [place] [id number] Aug, Malignant neoplasm of colon, unspecified part of colon C18.9 and Polyneuropathy G62.9 [facility] [address] [facility] [id number] [address] [place] [phone] Aug, Neuropathy G62.9 and Polyneu ropathy G62.9 [facility] [address] [facility] [id number] [address] [place] [id number] Jul, Encounter for drug screening Z02.83 [facility] [address] [facility] [id number] [address] [place] [id number] Jul, Polyneuropathy G62.9 [facility] [address] [facility] [id number] [address] [place] [id number] Jul, [facility] [address] [facility] [id number] [address] [place] [phone] Jul, Neuropathy G62.9 and Anxiety F41.9 [facility] [address] [facility] [id number] [address] [place] [phone] Jul, [facility] [address] [facility] [id number] [address] [place] [phone] Jul, [facility] [address] [facility] [id number] [address] [place] [id number] Jul, [facility] [address] [facility] [id number] [address] [place] [id number] Jul, Polyneuropathy G62.9 [facility] [address] [facility] [id number] [address] [place] [phone] Jul, [facility] [address] [facility] [id number] [address] [place] [id number] Jun, [facility] [address] [facility] [id number] [address] [place] [phone] Jun, [facility] [address] [facility] [id number] [address] [place] [phone] Jun, [facility] [address] [id number] [address] [place] [address] 07 Jun, 2017 Encounter for dental examina tion Z01.20 [facility] [address] [facility] [id number] [address] [place] [id number] Jun, Polyneuropathy G62.9 and Anx iety F41.9 [facility] [address] [facility] [id number] [address] [place] [phone] Jun, [facility] [address] [id number] [address] [place] [address] May, Dental examination Z01.20 [facility] [address] [facility] [id number] [address] [place] [id number] May, Polyneuropathy G62.9 [facility] [address] [facility] [id number] [address] [place] [id number] Apr, Polyneuropathy G62.9 [facility] [address] [facility] [id number] [address] [place] [phone] Apr, Polyneuropathy G62.9 [facility] [address] [place] [id number] [address] [place] [id number] Apr, Hypertension, benign I10 ; P olyneuropathy G62.9 and Anxiety F41.9 [facility] [address] [place] [id number] [address] [place] [phone] Apr, Primary insomnia F51.01 and Polyneuropathy G62.9 [facility] [address] [place] [id number] [address] [place] [phone] Apr, Primary insomnia F51.01 and Polyneuropathy G62.9 [facility] [address] [facility] [id number] [address] [place] [phone] Mar, Primary insomnia F51.01 [facility] [address] [facility] [id number] [address] [place] [phone] Mar, [facility] [address] [facility] [id number] [address] [place] [id number] Mar, Polyneuropathy G62.9 [place] [address] [id number] [address] [place] [address], [place] [address] Feb, Primary insomnia F51.01 [facility] [address] [id number] [address] [place] [address], [place] [address] Feb, [facility] [address] [id number] [address] [place] [address], [place] [address] Feb, [facility] [address] [id number] [address] [place] [address], [place] [address] Feb, Polyneuropathy G62.9 [facility] [address] [id number] [address] [place] [address], [place] [address] Feb, Primary insomnia F51.01 [facility] [address] [id number] [address] [place] [address], [place] [address] Jan, [facility] [address] [id number] [address] [place] [address], [place] [address] Jan, [facility] [address] [id number] [address] [place] [address], [place] [address] Dec, [facility] [address] [id number] [address] [place] [address], [place] [address] Dec, Primary insomnia F51.01 [facility] [address] [id number] [address] [place] [address], [place] [address] Dec, Primary insomnia F51.01 [facility] [address] [id number] [address] [place] [address], [place] [address] Dec, [facility] [address] [id number] [address] [place] [address], [place] [address] Dec, [facility] [address] [id number] [address] [place] [address], [place] [address] Dec, [facility] [address] [id number] [address] [place] [address], [place] [address] Dec, [facility] [address] [id number] [address] [place] [address] [address] November, Primary insomnia F51.01 and Polyneuropathy G62.9 [facility] [address] [facility] [id number] [address] [place] [phone] November, [facility] [address] [facility] [id number] [address] [place] [phone] November, Abdominal pain, left lower q uadrant R10.32 [facility] [address] [place] [id number] [address] [place] [phone] November, [facility] [address] [facility] [id number] [address] [place] [phone] Oct, [facility] [address] [facility] [id number] [address] [place] [id number] Oct, Abdominal pain, left lower q uadrant R10.32 ; 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 and Neuropathy G62.9 [facility] [address] [place] [id number] [address] [place] [phone] Oct, [facility] [address] [facility] [id number] [address] [place] [phone] Sep, [facility] [address] [place] [id number] [place] [id number] Sep, [facility] [address] [place] [id number] [address] [place] [phone] Sep, [facility] [address] [place] [id number] [address] [place] [phone] Aug, [facility] [address] [facility] [id number] [address] [place] [phone] Aug, [facility] [address] [facility] [id number] [address] [place] [id number] Aug, Abdominal pain, left lower q uadrant R10.32 ; Neuropathy G62.9 and Anxiety F41.9 [facility] [address] [place] [address] Jul, [facility] [address] [id number] [address] [place] [phone] Jul, [facility] [address] [id number] [address] [place] [phone] Jul, [facility] [address] [id number] [address] [place] [phone] Jul, [facility] [address] [id number] [address] [place] [id number] Jul, [facility] [address] [id number] [address] [place] [id number] Jun, [facility] [address] [id number] [address] [place] [phone] May, [facility] [address] [id number] [address] [place] [phone] May, [facility] [address] [id number] [address] [place] [phone] Apr, [facility] [address] [id number] [address] [place] [id number] Apr, Muscle spasms of both lower extremities M62.838 and Cellulitis, unspecified cellulitis site L03.90 [facility] [address] [id number] [address] [place] [id number] Apr, [facility] [address] [id number] [address] [place] [id number] 23 Mar, 2016 Generalized abdominal pain R 10.84 [facility] [address] [id number] [address] [place] [id number] 20 Mar, 2016 [facility] [address] [id number] [address] [place] [id number] 14 Mar, 2016 [facility] [address] [id number] [address] [place] [id number] 14 Mar, 2016 [facility] [address] [id number] [address] [place] [id number] 13 Mar, 2016 [facility] [address] [id number] [address] [place] [id number] 12 Mar, 2016 [facility] [address] [id number] [address] [place] [id number] 09 Mar, 2016 [facility] [address] [id number] [address] [place] [id number] Mar, [facility] [address] [id number] [address] [place] [phone] Feb, Other specified diseases of anus and rectum K62.89 [facility] [address] [id number] [address] [place] [id number] Feb, [facility] [address] [id number] [address] [place] [phone] Feb, Dizziness R42 [facility] [address] [id number] [address] [place] [phone] Feb, [facility] [address] [id number] [address] [place] [phone] Jan, Polyneuropathy G62.9 [facility] [address] [id number] [address] [place] [phone] Jan, Other specified diseases of anus and rectum K62.89 [facility] [address] [id number] [address] [place] [phone] Jan, [facility] [address] [id number] [address] [place] [phone] Jan, [facility] [address] [id number] [address] [place] [phone] Jan, [facility] [address] [id number] [address] [place] [phone] Jan, Dizziness R42 [facility] [address] [id number] [address] [place] [phone] Dec, [facility] [address] [id number] [address] [place] [address], [place] [id number] Dec, [facility] [address] [id number] [address] [place] [address], [place] [id number] Dec, [facility] [address] [id number] [address] [place] [address], [place] [phone] Dec, Dizziness R42 [facility] [address] [id number] [address] [place] [address], [place] [id number] November, [facility] [address] [id number] [address] [place] [address], [place] [id number] Oct, [facility] [address] [id number] [address] [place] [address], [place] [id number] Oct, [facility] [address] [id number] [address] [place] [address], [place] [phone] Oct, [facility] [address] [id number] [address] [place] [address], [place] [id number] Oct, [facility] [address] [id number] [address] [place] [address], [place] [address] Sep, [facility] [address] [id number] [address] [place] [address], [place] [address] Sep, Primary insomnia F51.01 [facility] [address] [id number] [address] [place] [address], [place] [address] Sep, Primary insomnia F51.01 [facility] [address] [id number] [address] [place] [address], [place] [address] Sep, [facility] [address] [id number] [address] [place] [address], [place] [address] Aug, [facility] [address] [id number] [address] [place] [address], [place] [address] Aug, [facility] [address] [id number] [address] [place] [address], [place] [address] Aug, Primary insomnia F51.01 ; Mo od disorder F39 ; Nausea and vomiting, unspecified intactability, vomiting of unspecified type R11.2 and Diarrhea R19.7 [facility] [address] [address] 15 Aug, 2015 [facility] [address] [address] Aug, Folliculitis L73.9 [facility] [address] [address] Aug, [facility] [address] [address] Aug, [facility] [address] [address] Jul, Folliculitis L73.9 [facility] [address] [address] Jul, [facility] [address] [address] Jun, Folliculitis L73.9 [facility] [address] [address] Jun, [facility] [address] [address] May, Polyneuropathy G62.9 [facility] [address] [address] May, Other specified diseases of anus and rectum K62.89 [facility] [address] [address] May, [facility] [address] [address] May, Primary insomnia F51.01 [facility] [address] [address] May, [facility] [address] [id number] [address] [place] [address] May, [facility] [address] [id number] [address] [place] [address] Apr, Other specified diseases of anus and rectum K62.89 ; Chronic fatigue R53.82 ; Urinary tract infection, site not specified N39.0 and Enterococcus as the cause of diseases classified elsewhere B95.2 [facility] [address] [id number] [address] [place] [id number] 16 Apr, 2015 [facility] [address] [id number] [address] [place] [id number] 15 Apr, 2015 [facility] [address] [id number] [address] [place] [address] 14 Apr, 2015 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 [facility] [address] [id number] [address] [place] [id number] 05 Apr, 2015 [facility] [address] [id number] [address] [place] [id number] 26 Mar, 2015 [facility] [address] [id number] [address] [place] [id number] 23 Mar, 2015 [facility] [address] [id number] [address] [place] [id number] 17 Mar, 2015 [facility] [address] [id number] [address] [place] [id number] 14 Mar, 2015 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 [facility] [address] [id number] [address] [place] [id number] 12 Mar, 2015 [facility] [address] [id number] [address] [place] [id number] 11 Mar, 2015 [facility] [address] [id number] [address] [place] [id number] 11 Mar, 2015 [facility] [address] [id number] [address] [place] [id number] Mar, [facility] [address] [id number] [address] [place] [phone] Feb, [facility] [address] [id number] [address] [place] [address] Feb, [facility] [address] [id number] [address] [place] [address] Feb, [facility] [address] [id number] [address] [place] [address] Jan, [facility] [address] [id number] [address] [place] [id number] Jan, Nausea 787.02 and Neuropathy 355.9 [facility] [address] [id number] [address] [place] [id number] Jan, [facility] [address] [id number] [address] [place] [id number] Jan, [facility] [address] [id number] [address] [place] [id number] Jan, [facility] [address] [id number] [address] [place] [id number] Jan, Dental examination V72.2 [facility] [address] [id number] [address] [place] [id number] Jan, [facility] [address] [id number] [address] [place] [id number] Dec, [facility] [address] [id number] [address] [place] [id number] Dec, [facility] [address] [id number] [address] [place] [address] Dec, Neuropathy 355.9 [facility] [address] [id number] [address] [place] [id number] November, [facility] [address] [id number] [address] [place] [id number] November, [facility] [address] [id number] [address] [place] [address], [place] [address] November, [facility] [address] [id number] [address] [place] [address], [place] [address] Oct, [facility] [address] [id number] [address] [place] [address], [place] [address] Oct, [facility] [address] [id number] [address] [place] [address], [place] [address] Sep, [facility] [address] [id number] [address] [place] [address], [place] [address] Sep, [facility] [address] [id number] [address] [place] [address], [place] [address] Sep, [facility] [address] [id number] [address] [place] [address], [place] [address] Sep, [facility] [address] [id number] [address] [place] [address], [place] [address] Sep, [facility] [address] [id number] [address] [place] [address], [place] [address] Sep, [facility] [address] [id number] [address] [place] [address], [place] [address] Sep, [facility] [address] [id number] [address] [place] [address], [place] [address] Sep, [facility] [address] [id number] [address] [place] [address], [place] [address] Aug, [facility] [address] [id number] [address] [place] [address], [place] [address] Aug, [facility] [address] [id number] [address] [place] [address], [place] [address] Aug, [facility] [address] [id number] [address] [place] [address], [place] [address] Aug, [facility] [address] [id number] [address] [place] [address], [place] [address] Aug, 2014 [facility] [address] [id number] [address] [place] [address], [place] [address] Aug, 2014 [facility] [address] [id number] [address] [place] [address], [place] [address] Aug, 2014 [facility] [address] [id number] [address] [place] [address], [place] [address] Aug, 2014 [facility] [address] [id number] [address] [place] [address], [place] [address] Jul, [facility] [address] [id number] [address] [place] [address], [place] [address] Jul, [facility] [address] [id number] [address] [place] [address], [place] [address] Jun, [facility] [address] [id number] [address] [place] [address], [place] [address] Jun, [facility] [address] [id number] [address] [place] [address], [place] [address] Jun, [facility] [address] [id number] [address] [place] [address], [place] [address] Jun, [facility] [address] [id number] [address] [place] [address], [place] [address] Jun, [facility] [address] [id number] [address] [place] [address], [place] [address] Jun, [facility] [address] [id number] [address] [place] [address], [place] [address] Jun, [facility] [address] [id number] [address] [place] [address], [place] [address] Jun, [facility] [address] [id number] [address] [place] [address], [place] [address] Jun, [facility] [address] [id number] [address] [place] [address], [place] [address] Jun, [facility] [address] [id number] [address] [place] [address], [place] [address] Jun, [facility] [address] [id number] [address] [place] [address], [place] [address] May, [facility] [address] [id number] [address] [place] [address], [place] [address] May, [facility] [address] [id number] [address] [place] [address], [place] [address] May, [facility] [address] [id number] [address] [place] [address], [place] [address] May, [facility] [address] [id number] [address] [place] [address], [place] [address] May, [facility] [address] [id number] [address] [place] [address], [place] [address] May, [facility] [address] [id number] [address] [place] [address], [place] [address] May, [facility] [address] [id number] [address] [place] [address], [place] [address] May, [facility] [address] [id number] [address] [place] [address], [place] [address] May, [facility] [address] [id number] [address] [place] [address], [place] [address] Apr, [facility] [address] [id number] [address] [place] [address], [place] [address] Apr, [facility] [address] [id number] [address] [place] [address], [place] [address] Apr, [facility] [address] [id number] [address] [place] [address], [place] [address] Apr, [facility] [address] [id number] [address] [place] [address], [place] [address] Apr, [facility] [address] [id number] [facility] [place] [address] Mar, [facility] [address] [id number] [facility] [place] [address] Mar, [facility] [address] [id number] [facility] [place] [address] Feb, [facility] [address] [id number] [address] [place] [address], [place] [address] Feb, [facility] [address] [id number] [address] [place] [address], [place] [address] Feb, [facility] [address] [id number] [address] [place] [address], [place] [address] Feb, [facility] [address] [id number] [address] [place] [address], [place] [address] Feb, [facility] [address] [id number] [address] [place] [address], [place] [address] Feb, [facility] [address] [id number] [address] [place] [address], [place] [address] Jan, [facility] [address] [id number] [address] [place] [address], [place] [address] Jan, [facility] [address] [id number] [address] [place] [address], [place] [address] Jan, [facility] [address] [id number] [address] [place] [address], [place] [address] Jan, [facility] [address] [id number] [address] [place] [address], [place] [address] Jan, [facility] [address] [id number] [address] [place] [address], [place] [address] Jan, [facility] [address] [id number] [address] [place] [address], [place] [address] Jan, [facility] [address] [id number] [address] [place] [address], [place] [address] Jan, [facility] [address] [id number] [facility] [place] [address] Jan, [facility] [address] [id number] [facility] [place] [address] Jan, [facility] [address] [id number] [facility] [place] [address] Jan, [facility] [address] [id number] [address] [place] [address], [place] [address] Dec, [facility] [address] [id number] [address] [place] [address], [place] [address] Dec, [facility] [address] [id number] [address] [place] [address], [place] [address] Dec, [facility] [address] [id number] [address] [place] [address], [place] [address] Dec, [facility] [address] [id number] [address] [place] [address], [place] [address] Dec, [facility] [address] [id number] [address] [place] [address], [place] [address] Dec, [facility] [address] [id number] [address] [place] [address], [place] [address] November, [facility] [address] [id number] [address] [place] [address], [place] [address] November, [facility] [address] [id number] [address] [place] [address], [place] [address] November, [facility] [address] [id number] [address] [place] [address], [place] [address] November, [facility] [address] [id number] [address] [place] [address], [place] [address] November, [facility] [address] [id number] [address] [place] [address], [place] [address] November, [facility] [address] [id number] [address] [place] [address], [place] [address] 30 Oct, 2013 [facility] [address] [id number] [address] [place] [address], [place] [address] 30 Oct, 2013 [facility] [address] [id number] [address] [place] [address], [place] [address] Oct, [facility] [address] [id number] [address] [place] [address], [place] [address] Oct, [facility] [address] [id number] [address] [place] [address], [place] [address] Sep, [facility] [address] [id number] [address] [place] [address], [place] [address] Sep, [facility] [address] [id number] [address] [place] [address], [place] [address] Sep, [facility] [address] [id number] [address] [place] [address], [place] [address] Sep, [facility] [address] [id number] [address] [place] [address], [place] [address] Sep, [facility] [address] [id number] [address] [place] [address], [place] [address] Aug, [facility] [address] [id number] [address] [place] [address], [place] [address] Aug, [facility] [address] [id number] [address] [place] [address], [place] [address] Aug, [facility] [address] [id number] [address] [place] [address], [place] [address] Aug, [facility] [address] [id number] [address] [place] [address], [place] [address] Aug, [facility] [address] [place] [id number] May, [facility] [address] [id number] [address] [place] [address], [place] [address] May, [facility] [address] [id number] [address] [place] [address], [place] [address] 08 May, 2013 [facility] [address] [id number] [address] [place] [address], [place] [address] May, [facility] [address] [id number] [address] [place] [address], [place] [address] May, [facility] [address] [id number] [address] [place] [address], [place] [address] Apr, [facility] [address] [id number] [address] [place] [address], [place] [address] Apr, [facility] [address] [id number] [address] [place] [address], [place] [address] Apr, [facility] [address] [id number] [address] [place] [address], [place] [address] Apr, [facility] [address] [id number] [address] [place] [address], [place] [address] Apr, [facility] [address] [id number] [address] [place] [address], [place] [address] Apr, [facility] [address] [id number] [address] [place] [address], [place] [address] Apr, [facility] [address] [id number] [address] [place] [address], [place] [address] 28 Mar, 2013 [facility] [address] [id number] [address] [place] [address], [place] [address] 25 Mar, 2012 [facility] [address] [id number] [address] [place] [address], [place] [address] 24 Sep, 2012 [facility] [address] [id number] [address] [place] [address], [place] [address] 16 Sep, 2012 [facility] [address] [id number] [address] [place] [address], [place] [address] 12 Sep, 2012 [facility] [address] [id number] [address] [place] [address] [address] Mar, [facility] [address] [id number] [address] [place] [address], [place] [address] Feb, [facility] [address] [id number] [address] [place] [address], [place] [address] Feb, [facility] [address] [id number] [address] [place] [address], [place] [address] Feb, [facility] [address] [id number] [address] [place] [address], [place] [address] Feb, [facility] [address] [id number] [address] [place] [address], [place] [address] Feb, [facility] [address] [id number] [address] [place] [address], [place] [address] Feb, [facility] [address] [id number] [address] [place] [address], [place] [address] Jan, [facility] [address] [id number] [address] [place] [address], [place] [address] Dec, [facility] [address] [id number] [address] [place] [address], [place] [address] Dec, [facility] [address] [id number] [address] [place] [address], [place] [address] Dec, [facility] [address] [id number] [address] [place] [address], [place] [address] Dec, [facility] [address] [id number] [address] [place] [address], [place] [address] Dec, [facility] [address] [id number] [address] [place] [address], [place] [address] 18 Dec, 2012 [facility] [address] [id number] [address] [place] [address], [place] [address] 17 Dec, 2012 [facility] [address] [id number] [address] [place] [address], [place] [address] 12 Dec, 2012 [facility] [address] [id number] [address] [place] [address], [place] [address] 06 Dec, 2012 [facility] [address] [id number] [address] [place] [address], [place] [address] November, [facility] [address] [id number] [address] [place] [address], [place] [address] November, [facility] [address] [id number] [address] [place] [address], [place] [address] Oct, [facility] [address] [id number] [address] [place] [address], [place] [address] Sep, [facility] [address] [id number] [address] [place] [address], [place] [address] Sep, [facility] [address] [id number] [address] [place] [address], [place] [address] 15 Sep, 2012 [facility] [address] [id number] [address] [place] [address], [place] [address] Sep, [facility] [address] [id number] [address] [place] [address], [place] [address] Aug, [facility] [address] [id number] [address] [place] [address], [place] [address] Aug, [facility] [address] [id number] [address] [place] [address], [place] [address] Jul, [facility] [address] [id number] [address] [place] [address], [place] [address] Jul, [facility] [address] [id number] [address] [place] [address], [place] [address] Jul, [facility] [address] [id number] [address] [place] [address], [place] [address] 22 Sep, 2011 [facility] [address] [id number] [address] [place] [address], [place] [address] 17 Sep, 2011 [facility] [address] [id number] [address] [place] [address], [place] [address] 10 Sep, 2011 IMMUNIZATIONS No Known Immunizations [...] bowel obstruction, Dehydration -[facility] 01/01/17 Hospitalization History [facility]- UTI/Sepsis 01/18/2018 Hospitalization History [facility] - infection 4 days 05/2018
--- OUTSIDE RECORDS SUMMARY | 2020-01-14 23:07 | XMS REPORT ---
Author Author Melvni BENTLEY Organization [facility] Address [address] [place] [address] Care Team Providers Care [employer] Business Partner Name Role Phone LINDA BENTLEY Unavailable PROBLEMS Type Condition ICD9-CM Code [id number] Code Onset Dates Condition S tatus SNOMED Code Problem Incontinence of feces, unspecified fecal incontinence type R15.9 Active 21965742 Problem Primary insomnia F51.01 Active 193 356040 Problem Hydronephrosis with ureteral stricture, not else where classified N13.1 Active 68518635 Problem Chronic fatigue, unspecified R53.82 A ctive 694022646 Problem Hypertension, benign I10 Active 63009528 Problem Mood disorder F39 Active 304918 05 Problem Neuropathy G62.9 Active 197475263 Problem Chronic pain syndrome G89.4 Active 979855507 Problem Abdominal pain, left lower quadrant R10.32 Active 166072363 Problem 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 Active 200263385 Problem 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 865608275 Problem Anxiety F41.9 Active 90370632 Problem Polyneuropathy G62.9 Active 19933 000 Problem Malignant neoplasm of colon, unspecified part of colon C18.9 Active 730185842 Problem Attention to urostomy Z43.6 Active [id number] ALLERGIES No Information ENCOUNTERS Encounter Location Date Diagnosis [facility] [address] [facility] [id number] [address] [place] [phone] Feb, [facility] [address] [facility] [id number] [address] [place] [phone] Jan, [facility] [address] [facility] [id number] [address] [place] [phone] Jan, Neuropathy G62.9 [facility] [address] [facility] [id number] [address] [place] [id number] Dec, [facility] [address] [id number] [address] [place] [id number] Dec, Encounter for Medicare annua l wellness exam Z00.00 and Neuropathy G62.9 [facility] [address] [id number] [address] [place] [phone] November, [facility] [address] [id number] [address] [place] [id number] November, Encounter for Medicare annua l wellness exam Z00.00 ; 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 ; Mood disorder F39 ; Chronic fatigue, unspecified R53.82 and Neuropathy G62.9 [facility] [address] [id number] [address] [place] [phone] November, Neuropathy G62.9 [facility] [address] [id number] [address] [place] [phone] Oct, Neuropathy G62.9 [facility] [address] [id number] [address] [place] [id number] Oct, Hypertension, benign I10 and Anxiety F41.9 [facility] [address] [id number] [address] [place] [phone] Oct, [facility] [address] [id number] [address] [place] [phone] Oct, [facility] [address] [id number] [address] [place] [phone] Oct, [facility] [address] [id number] [address] [place] [phone] Oct, Neuropathy G62.9 [facility] [address] [id number] [address] [place] [phone] Sep, [facility] [address] [id number] [address] [place] [phone] Sep, Neuropathy G62.9 [facility] [address] [id number] [address] [place] [id number] Sep, [facility] [address] [id number] [address] [place] [id number] Sep, H/O malignant carcinoid tumo r of rectum Z85.040 and Primary insomnia F51.01 [facility] [address] [id number] [address] [place] [id number] Aug, [facility] [address] [id number] [address] [place] [phone] Aug, Neuropathy G62.9 [facility] [address] [id number] [address] [place] [phone] Aug, [facility] [address] [facility] [id number] [address] [place] [id number] Jul, Non-recurrent acute suppurat francine otitis media of left ear without spontaneous rupture of tympanic membrane H66.002 [facility] [address] [id number] [address] [place] [phone] Jul, Neuropathy G62.9 [facility] [address] [id number] [address] [place] [phone] Jun, [facility] [address] [facility] [id number] [address] [place] [phone] Jun, [facility] [address] [facility] [id number] [address] [place] [phone] Jun, Neuropathy G62.9 [facility] [address] [facility] [id number] [address] [place] [phone] Jun, [facility] [address] [facility] [id number] [address] [place] [phone] Jun, [facility] [address] [facility] [id number] [address] [place] [phone] Jun, Lumbar neuritis M54.16 [facility] [address] [facility] [id number] [address] [place] [phone] May, Neuropathy G62.9 [facility] [address] [place] [id number] [address] [place] [phone] May, [facility] [address] [address] May, Neuropathy G62.9 and Hyperte nsion, benign I10 [facility] [address] [phone] Apr, Polyneuropathy G62.9 and Hyp ertension, benign I10 [facility] [address] [phone] 17 Mar, 2018 Chronic pain syndrome G89.4 and Hypertension, benign I10 [place] [address] [place] [id number] [place] [phone] Mar, Polyneuropathy G62.9 and Hyp ertension, benign I10 [facility] [address] [address] Feb, [facility] [address] [address] Feb, Hypertension, benign I10 [place] [address] [address] Feb, Hypertension, benign I10 ; P olyneuropathy G62.9 and Primary insomnia F51.01 [facility] [address] [place] [place] [id number] [address] [place] [phone] Jan, Hypertension, benign I10 and Polyneuropathy G62.9 [facility] [address] [place] [id number] [address] [place] [phone] Jan, Hypertension, benign I10 and Neuropathy G62.9 [facility] [address] [place] [id number] [address] [place] [phone] Jan, [facility] [address] [address] Dec, Polyneuropathy G62.9 [facility] [address] [id number] [address] [place] [phone] Dec, Mood disorder F39 [facility] [address] [facility] [id number] [address] [place] [phone] November, Polyneuropathy G62.9 [facility] [address] [facility] [id number] [address] [place] [phone] November, Medicare annual wellness vis it, initial Z00.00 [facility] [address] [id number] [address] [place] [phone] November, Mood disorder F39 [facility] [address] [facility] [id number] [address] [place] [phone] Oct, Polyneuropathy G62.9 [facility] [address] [facility] [id number] [address] [place] [phone] Oct, [facility] [address] [facility] [id number] [address] [place] [phone] Oct, [facility] [address] [facility] [id number] [address] [place] [id number] Oct, Mood disorder F39 ; Attentio n to urostomy Z43.6 ; Chronic pain syndrome G89.4 and Polyneuropathy G62.9 [facility] [address] [facility] [id number] [address] [place] [phone] Sep, Polyneuropathy G62.9 [facility] [address] [facility] [id number] [address] [place] [id number] Sep, [facility] [address] [facility] [id number] [address] [place] [id number] Sep, Polyneuropathy G62.9 [facility] [address] [facility] [id number] [address] [place] [address] Aug, Polyneuropathy G62.9 [facility] [address] [facility] [id number] [address] [place] [phone] Aug, Malignant neoplasm of colon, unspecified part of colon C18.9 and Polyneuropathy G62.9 [facility] [address] [id number] [address] [place] [id number] Aug, Neuropathy G62.9 and Polyneu ropathy G62.9 [facility] [address] [facility] [id number] [address] [place] [phone] Jul, Encounter for drug screening Z02.83 [facility] [address] [id number] [address] [place] [id number] Jul, Polyneuropathy G62.9 [facility] [address] [facility] [id number] [address] [place] [phone] Jul, [facility] [address] [facility] [id number] [address] [place] [phone] Jul, Neuropathy G62.9 and Anxiety F41.9 [facility] [address] [id number] [address] [place] [id number] Jul, [facility] [address] [id number] [address] [place] [phone] Jul, [facility] [address] [facility] [id number] [address] [place] [phone] Jul, [facility] [address] [id number] [address] [place] [id number] Jul, Polyneuropathy G62.9 [facility] [address] [id number] [address] [place] [phone] Jul, [facility] [address] [id number] [address] [place] [phone] Jun, [facility] [address] [facility] [id number] [address] [place] [phone] Jun, [facility] [address] [facility] [id number] [address] [place] [phone] Jun, [facility] [address] [id number] [address], [place] [address] 07 Jun, 2017 Encounter for dental examina tion Z01.20 [facility] [address] [place] [id number] [address] [place] [id number] Jun, Polyneuropathy G62.9 and Anx iety F41.9 [facility] [address] [place] [id number] [address] [place] [phone] Jun, [facility] [address] [id number] [address], [place] [address] May, Dental examination Z01.20 [facility] [address] [address] May, Polyneuropathy G62.9 [facility] [address] [address] Apr, Polyneuropathy G62.9 [facility] [address] [address] Apr, Polyneuropathy G62.9 [facility] [address] [address] Apr, Hypertension, benign I10 ; P olyneuropathy G62.9 and Anxiety F41.9 [place] [address] [place] [id number] [address] [place] [phone] Apr, Primary insomnia F51.01 and Polyneuropathy G62.9 [facility] [address] [place] [id number] [address] [place] [id number] Apr, Primary insomnia F51.01 and Polyneuropathy G62.9 [facility] [address] [place] [id number] [address] [place] [phone] Mar, Primary insomnia F51.01 [facility] [address] [place] [id number] [address] [place] [id number] Mar, [facility] [address] [id number] [address] [place] [address], [place] [phone] Mar, Polyneuropathy G62.9 [facility] [address] [id number] [address] [place] [address], [place] [address] Feb, Primary insomnia F51.01 [facility] [address] [id number] [address] [place] [address], [place] [phone] Feb, [facility] [address] [id number] [address] [place] [address], [place] [address] Feb, [facility] [address] [id number] [address] [place] [address], [place] [phone] Feb, Polyneuropathy G62.9 [facility] [address] [id number] [address] [place] [address], [place] [address] Feb, Primary insomnia F51.01 [facility] [address] [id number] [address] [place] [address], [place] [phone] Jan, [facility] [address] [id number] [address] [place] [address], [place] [address] Jan, [facility] [address] [id number] [address] [place] [address], [place] [address] Dec, [facility] [address] [id number] [address] [place] [phone] Dec, Primary insomnia F51.01 [facility] [address] [id number] [address] [place] [address], [place] [address] Dec, Primary insomnia F51.01 [facility] [address] [id number] [address] [place] [address], [place] [address] Dec, [facility] [address] [id number] [address] [place] [address], [place] [phone] Dec, [facility] [address] [id number] [address] [place] [phone] Dec, [facility] [address] [id number] [address] [place] [id number] Dec, [facility] [address] [facility] [id number] [address] [place] [phone] November, Primary insomnia F51.01 and Polyneuropathy G62.9 [facility] [address] [id number] [address] [place] [address] November, [facility] [address] [id number] [address] [place] [id number] November, Abdominal pain, left lower q uadrant R10.32 [facility] [address] [facility] [id number] [address] [place] [phone] November, [facility] [address] [facility] [id number] [address] [place] [id number] Oct, [facility] [address] [facility] [id number] [address] [place] [address] Oct, Abdominal pain, left lower q uadrant R10.32 ; H/O malignant carcinoid tumor of rectum Z85.040 and Neuropathy G62.9 [facility] [address] [facility] [id number] [address] [place] [id number] Oct, [facility] [address] [facility] [id number] [address] [place] [phone] Sep, [facility] [id number] [place] [id number] Sep, [facility] [address] [facility] [id number] [address] [place] [phone] Sep, [facility] [address] [facility] [id number] [address] [place] [address] Aug, [facility] [address] [facility] [id number] [address] [place] [phone] Aug, [facility] [address] [facility] [id number] [address] [place] [id number] Aug, Abdominal pain, left lower q uadrant R10.32 ; Neuropathy G62.9 and Anxiety F41.9 [facility] [address] [facility] [place] [address] Jul, [facility] [address] [id number] [address] [place] [id number] Jul, [facility] [address] [id number] [address] [place] [id number] Jul, [facility] [address] [id number] [address] [place] [phone] Jul, [facility] [address] [id number] [address] [place] [id number] Jul, [facility] [address] [id number] [address] [place] [phone] Jun, [facility] [address] [id number] [address] [place] [phone] May, [facility] [address] [id number] [address] [place] [phone] May, [facility] [address] [id number] [address] [place] [phone] Apr, [facility] [address] [id number] [address] [place] [id number] Apr, Muscle spasms of both lower extremities M62.838 and Cellulitis, unspecified cellulitis site L03.90 [facility] [address] [id number] [address] [place] [phone] Apr, [facility] [address] [id number] [address] [place] [id number] 23 Mar, 2016 Generalized abdominal pain R 10.84 [facility] [address] [id number] [address] [place] [id number] 20 Mar, 2016 [facility] [address] [id number] [address] [place] [id number] 14 Mar, 2016 [facility] [address] [id number] [address] [place] [phone] 14 Mar, 2015 [facility] [address] [id number] [address] [place] [id number] 13 Mar, 2015 [facility] [address] [id number] [address] [place] [id number] 12 Mar, 2016 [facility] [address] [id number] [address] [place] [phone] 09 Mar, 2016 [facility] [address] [id number] [address] [place] [id number] 06 Mar, 2016 [facility] [address] [id number] [address] [place] [address] Feb, Other specified diseases of anus and rectum K62.89 [facility] [address] [id number] [address] [place] [id number] Feb, [facility] [address] [id number] [address] [place] [phone] Feb, Dizziness R42 [facility] [address] [id number] [address] [place] [phone] Feb, [facility] [address] [id number] [address] [place] [address] Jan, Polyneuropathy G62.9 [facility] [address] [id number] [address] [place] [phone] Jan, Other specified diseases of anus and rectum K62.89 [facility] [address] [id number] [address] [place] [id number] Jan, [facility] [address] [id number] [address] [place] [id number] 16 Jan, 2016 [facility] [address] [id number] [address] [place] [phone] Jan, [facility] [address] [id number] [address] [place] [phone] Jan, Dizziness R42 [facility] [address] [id number] [address] [place] [address], [place] [phone] Dec, [facility] [address] [id number] [address] [place] [address], [place] [phone] Dec, [facility] [address] [id number] [address] [place] [address], [place] [phone] Dec, [facility] [address] [id number] [address] [place] [address], [place] [phone] Dec, Dizziness R42 [facility] [address] [id number] [address] [place] [address], [place] [phone] November, [facility] [address] [id number] [address] [place] [address], [place] [phone] Oct, [facility] [address] [id number] [address] [place] [address], [place] [phone] Oct, [facility] [address] [id number] [address] [place] [address], [place] [phone] Oct, [facility] [address] [id number] [address] [place] [address], [place] [phone] Oct, [facility] [address] [id number] [address] [place] [address], [place] [id number] Sep, [facility] [address] [id number] [address] [place] [address], [place] [phone] Sep, Primary insomnia F51.01 [facility] [address] [id number] [address] [place] [address], [place] [address] Sep, Primary insomnia F51.01 [facility] [address] [id number] [address] [place] [address], [place] [address] Sep, [facility] [address] [id number] [address] [place] [address], [place] [phone] Aug, [facility] [address] [id number] [address] [place] [address], [place] [address] Aug, [facility] [address] [id number] [address] [place] [id number] Aug, Primary insomnia F51.01 ; Mo od disorder F39 ; Nausea and vomiting, unspecified intactability, vomiting of unspecified type R11.2 and Diarrhea R19.7 [facility] [address] [id number] Aug, [facility] [address] [address] Aug, Folliculitis L73.9 [facility] [address] [id number] Aug, [facility] [address] [address] Aug, [facility] [address] [phone] Jul, Folliculitis L73.9 [facility] [address] [id number] Jul, [facility] [address] [id number] Jun, Folliculitis L73.9 [facility] [address] [id number] Jun, [facility] [address] [address] May, Polyneuropathy G62.9 [facility] [address] [place] [id number] [address] [place] [address] May, Other specified diseases of anus and rectum K62.89 [facility] [address] [id number] [address] [place] [phone] May, [facility] [address] [id number] May, Primary insomnia F51.01 [facility] [address] [id number] [address] [place] [id number] May, [facility] [address] [id number] [address] [place] [id number] May, [facility] [address] [id number] [address] [place] [phone] Apr, Other specified diseases of anus and rectum K62.89 ; Chronic fatigue R53.82 ; Urinary tract infection, site not specified N39.0 and Enterococcus as the cause of diseases classified elsewhere B95.2 [facility] [address] [id number] [address] [place] [id number] 16 Apr, 2015 [facility] [address] [id number] [address] [place] [id number] 15 Apr, 2015 [facility] [address] [id number] [address] [place] [id number] 14 Apr, 2015 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 [facility] [address] [id number] [address] [place] [phone] 05 Apr, 2015 [facility] [address] [id number] [address] [place] [id number] 26 Mar, 2015 [facility] [facility] [address] [id number] [address] [place] [id number] 23 Mar, 2015 [facility] [address] [id number] [address] [place] [id number] 17 Mar, 2015 [facility] [address] [id number] [address] [place] [id number] 14 Mar, 2015 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 [facility] [address] [id number] [address] [place] [id number] 12 Mar, 2015 [facility] [address] [id number] [address] [place] [id number] 11 Mar, 2015 [facility] [address] [id number] [address] [place] [id number] 11 Mar, 2015 [facility] [address] [id number] [address] [place] [phone] Mar, [facility] [address] [id number] [address] [place] [id number] Feb, [facility] [address] [id number] [address] [place] [phone] Feb, [facility] [address] [id number] [address] [place] [phone] Feb, [facility] [address] [id number] [address] [place] [phone] Jan, [facility] [address] [id number] [address] [place] [id number] Jan, Nausea 787.02 and Neuropathy 355.9 [facility] [address] [id number] [address] [place] [phone] Jan, [facility] [address] [id number] [address] [place] [phone] Jan, [facility] [address] [id number] [address] [place] [phone] Jan, [facility] [address] [id number] [address] [place] [id number] Jan, Dental examination V72.2 [facility] [address] [id number] [address] [place] [phone] Jan, [facility] [address] [id number] [address] [place] [id number] Dec, [facility] [address] [id number] [address] [place] [phone] Dec, [facility] [address] [id number] [address] [place] [phone] Dec, Neuropathy 355.9 [facility] [address] [id number] [address] [place] [address] [place] [address] November, [facility] [address] [id number] [address] [place] [address], [place] [address] November, [facility] [address] [id number] [address] [place] [address], [place] [address] November, [facility] [address] [id number] [address] [place] [address], [place] [address] Oct, [facility] [address] [id number] [address] [place] [address], [place] [address] Oct, [facility] [address] [id number] [address] [place] [address], [place] [address] Sep, [facility] [address] [id number] [address] [place] [address], [place] [address] Sep, [facility] [address] [id number] [address] [place] [address], [place] [address] Sep, [facility] [address] [id number] [address] [place] [address], [place] [address] Sep, [facility] [address] [id number] [address] [place] [address], [place] [address] Sep, [facility] [address] [id number] [address] [place] [address], [place] [address] Sep, [facility] [address] [id number] [address] [place] [address], [place] [address] Sep, [facility] [address] [id number] [address] [place] [address], [place] [address] Sep, [facility] [address] [id number] [address] [place] [address], [place] [address] Aug, [facility] [address] [id number] [address] [place] [address], [place] [address] Aug, [facility] [address] [id number] [address] [place] [address], [place] [address] Aug, [facility] [address] [id number] [address] [place] [address], [place] [address] Aug, 2014 [facility] [address] [id number] [address] [place] [address], [place] [address] Aug, 2014 [facility] [address] [id number] [address] [place] [address], [place] [address] Aug, 2014 [facility] [place] [address] [id number] [address] [place] [address], [place] [address] Aug, 2014 [facility] [address] [id number] [address] [place] [address], [place] [address] Aug, [facility] [address] [id number] [address] [place] [address], [place] [address] Jul, [facility] [address] [id number] [address] [place] [address], [place] [address] Jul, [facility] [address] [id number] [address] [place] [address], [place] [address] Jun, [facility] [address] [id number] [address] [place] [address], [place] [address] Jun, [facility] [address] [id number] [address] [place] [address], [place] [address] Jun, [facility] [address] [id number] [address] [place] [address], [place] [address] Jun, [facility] [address] [id number] [address] [place] [address], [place] [address] Jun, [facility] [address] [id number] [address] [place] [address], [place] [address] Jun, [facility] [address] [id number] [address] [place] [address], [place] [address] Jun, [facility] [address] [id number] [address] [place] [address], [place] [address] Jun, [facility] [place] [address] [id number] [address] [place] [address], [place] [address] Jun, [facility] [place] [address] [id number] [address] [place] [address], [place] [address] Jun, [facility] [address] [id number] [address] [place] [address], [place] [address] Jun, [facility] [place] [address] [id number] [address] [place] [address], [place] [address] May, [facility] [place] [address] [id number] [address] [place] [address], [place] [address] May, [facility] [place] [address] [id number] [address] [place] [address], [place] [address] May, [facility] [place] [address] [id number] [address] [place] [address], [place] [address] May, [facility] [address] [id number] [address] [place] [address], [place] [address] May, [facility] [address] [id number] [address] [place] [address], [place] [address] May, [facility] [place] [address] [id number] [address] [place] [address], [place] [address] May, [facility] [place] [address] [id number] [address] [place] [address], [place] [address] May, [facility] [place] [address] [id number] [address] [place] [address], [place] [address] May, [facility] [place] [address] [id number] [address] [place] [address], [place] [address] Apr, [facility] [place] [address] [id number] [address] [place] [address], [place] [address] Apr, [facility] [place] [address] [id number] [address] [place] [address], [place] [address] Apr, [facility] [place] [address] [id number] [address] [place] [address], [place] [address] Apr, [facility] [place] [address] [id number] [facility] [place] [address] Apr, [facility] [place] [facility] [address] [id number] [facility] [place] [address] Mar, [facility] [place] [address] [id number] [facility] [place] [address] Mar, [facility] [place] [facility] [address] [id number] [address] [place] [address], [place] [address] Feb, [facility] [place] [facility] [address] [id number] [address] [place] [address], [place] [address] Feb, [facility] [place] [address] [id number] [address] [place] [address], [place] [address] Feb, [facility] [place] [facility] [address] [id number] [address] [place] [address], [place] [address] Feb, [facility] [place] [facility] [address] [id number] [address] [place] [address], [place] [address] Feb, [facility] [place] [facility] [address] [id number] [address] [place] [address], [place] [address] Feb, [facility] [place] [address] [id number] [address] [place] [address], [place] [address] Jan, [facility] [place] [address] [id number] [address] [place] [address], [place] [address] Jan, [facility] [place] [address] [id number] [address] [place] [address], [place] [address] Jan, [facility] [place] [facility] [address] [id number] [address] [place] [address], [place] [address] Jan, [facility] [place] [facility] [address] [id number] [address] [place] [address], [place] [address] Jan, [facility] [place] [facility] [address] [id number] [address] [place] [address], [place] [address] Jan, [facility] [place] [facility] [address] [id number] [address] [place] [address], [place] [address] Jan, [facility] [address] [id number] [facility] [place] [address] Jan, [facility] [place] [address] [id number] [facility] [place] [address] Jan, [facility] [address] [id number] [facility] [place] [address] Jan, [facility] [place] [address] [id number] [address] [place] [address], [place] [address] Jan, [facility] [address] [id number] [facility] [place] [address] Dec, [facility] [address] [id number] [address] [place] [address], [place] [address] Dec, [facility] [address] [id number] [address] [place] [address], [place] [address] Dec, [facility] [address] [id number] [address] [place] [address], [place] [address] Dec, [facility] [address] [id number] [address] [place] [address], [place] [address] Dec, [facility] [address] [id number] [address] [place] [address], [place] [address] Dec, [facility] [address] [id number] [address] [place] [address], [place] [address] November, [facility] [address] [id number] [address] [place] [address], [place] [address] November, [facility] [address] [id number] [address] [place] [address], [place] [address] November, [facility] [place] [address] [id number] [address] [place] [address], [place] [address] November, [facility] [place] [facility] [address] [id number] [address] [place] [address], [place] [address] November, [facility] [place] [facility] [address] [id number] [address] [place] [address] November, [facility] [address] [id number] [address] [place] [address], [place] [address] Oct, [facility] [address] [id number] [facility] [place] [address] Oct, [facility] [address] [id number] [address] [place] [address], [place] [address] Oct, [facility] [address] [id number] [address] [place] [address], [place] [address] Oct, [facility] [address] [id number] [address] [place] [address], [place] [address] Sep, [facility] [address] [id number] [address] [place] [address], [place] [address] Sep, [facility] [address] [id number] [address] [place] [address], [place] [address] Sep, [facility] [address] [id number] [address] [place] [address], [place] [address] Sep, [facility] [address] [id number] [address] [place] [address], [place] [address] Sep, [facility] [address] [id number] [address] [place] [address], [place] [address] Aug, [facility] [address] [id number] [address] [place] [address], [place] [address] Aug, [facility] [address] [id number] [address] [place] [address], [place] [address] Aug, [facility] [address] [id number] [address] [place] [address], [place] [address] Aug, [facility] [address] [id number] [address] [place] [address], [place] [address] 14 Aug, 2013 [facility] [address] [place] [id number] May, [facility] [address] [id number] [address] [place] [address], [place] [address] May, [facility] [address] [id number] [address] [place] [address], [place] [address] May, [facility] [address] [id number] [address] [place] [address], [place] [address] May, [facility] [address] [id number] [address] [place] [address], [place] [address] May, [facility] [address] [id number] [address] [place] [address], [place] [address] Apr, [facility] [address] [id number] [address] [place] [address], [place] [address] Apr, [facility] [address] [id number] [address] [place] [address], [place] [address] Apr, [facility] [address] [id number] [address] [place] [address], [place] [address] Apr, [facility] [address] [id number] [address] [place] [address], [place] [address] Apr, [facility] [address] [id number] [address] [place] [id number] Apr, [facility] [address] [id number] [address] [place] [address], [place] [address] Apr, [facility] [address] [id number] [address] [place] [id number] 28 Mar, 2013 [facility] [address] [id number] [address] [place] [address], [place] [address] 25 Mar, 2013 [facility] [address] [id number] [address] [place] [address], [place] [address] 24 Mar, 2013 [facility] [address] [id number] [address] [place] [id number] 16 Mar, 2013 [facility] [address] [id number] [address] [place] [address] Mar, [facility] [address] [id number] [address] [place] [address], [place] [address] Mar, [facility] [address] [id number] [address] [place] [address], [place] [address] Feb, [facility] [address] [id number] [address] [place] [address], [place] [address] Feb, [facility] [address] [id number] [address] [place] [address], [place] [address] Feb, [facility] [address] [id number] [address] [place] [address], [place] [address] Feb, [facility] [address] [id number] [address] [place] [address], [place] [address] Feb, [facility] [address] [id number] [address] [place] [address], [place] [address] Feb, [facility] [address] [id number] [address] [place] [address], [place] [address] Jan, [facility] [address] [id number] [address] [place] [address], [place] [address] Dec, [facility] [address] [id number] [address] [place] [address], [place] [address] Dec, [facility] [address] [id number] [address] [place] [address], [place] [address] Dec, [facility] [address] [id number] [address] [place] [address], [place] [address] Dec, [facility] [address] [id number] [address] [place] [address], [place] [address] Dec, [facility] [address] [id number] [address] [place] [address], [place] [address] Dec, [facility] [address] [id number] [address] [place] [address], [place] [address] 17 Dec, 2012 [facility] [address] [id number] [address] [place] [address], [place] [address] Dec, [facility] [address] [id number] [address] [place] [address], [place] [address] Dec, [facility] [address] [id number] [address] [place] [address], [place] [address] November, [facility] [address] [id number] [address] [place] [address], [place] [address] November, [facility] [address] [id number] [address] [place] [address], [place] [address] Oct, [facility] [address] [id number] [address] [place] [address], [place] [address] Sep, [facility] [address] [id number] [address] [place] [address], [place] [address] Sep, [facility] [address] [id number] [address] [place] [address], [place] [address] Sep, [facility] [address] [id number] [address] [place] [address], [place] [address] Sep, [facility] [address] [id number] [address] [place] [address], [place] [address] Aug, [facility] [address] [id number] [address] [place] [address], [place] [address] Aug, [facility] [address] [id number] [address] [place] [address], [place] [address] Jul, [facility] [address] [id number] [address] [place] [address], [place] [address] Jul, [facility] [address] [id number] [address] [place] [address], [place] [address] Jul, [facility] [address] [id number] [address] [place] [address], [place] [address] Sep, [facility] [address] [id number] [address] [place] [address], [place] [address] Sep, [facility] [address] [facility] [id number] [address] [place] [address] Sep, IMMUNIZATIONS No Known Immunizations SOCIAL HISTORY [...] 09/21/16 Hospitalization History Large bowel obstruction, Dehydration -VC 01/01/17 Hospitalization History [facility]- UTI/Sepsis 01/18/2018 Hospitalization History [facility] - infection 4 days 05/2018
--- OUTSIDE RECORDS SUMMARY | 2020-01-14 23:07 | XMS REPORT ---
Author Author Melvin BENTLEY Organization [facility] [place] Address [address] [place] [address] Care Team Providers Care Planetarium Technician Name Role Phone LINDA BENTLEY Unavailable PROBLEMS Type Condition ICD9-CM Code ABK14-VN Code Onset Dates Condition S tatus SNOMED Code Problem Incontinence of feces, unspecified fecal incontinence type R15.9 Active 05097635 Problem Primary insomnia F51.01 Active 193 604414 Problem Hydronephrosis with ureteral stricture, not else where classified N13.1 Active 42356087 Problem Chronic fatigue, unspecified R53.82 A ctive 612075547 Problem Hypertension, benign I10 Active 97523655 Problem Mood disorder F39 Active 862475 05 Problem Neuropathy G62.9 Active 824704720 Problem Chronic pain syndrome G89.4 Active 443651590 Problem Abdominal pain, left lower quadrant R10.32 Active 531985809 Problem 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 Active 307862386 Problem 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 045859211 Problem Anxiety F41.9 Active 09056232 Problem Polyneuropathy G62.9 Active 70346 000 Problem Malignant neoplasm of colon, unspecified part of colon C18.9 Active 439145267 Problem Attention to urostomy Z43.6 Active 043048991 ALLERGIES No Information ENCOUNTERS Encounter Location Date Diagnosis [facility] [place] [address] [facility] [id number] [address] [place] [phone] Feb, [facility] [place] [address] [facility] [id number] [address] [place] [id number] Jan, [facility] [place] [address] [facility] [id number] [address] [place] [phone] Jan, Neuropathy G62.9 [facility] [place] [address] [facility] [id number] [address] [place] [phone] Dec, [facility] [place] [address] [id number] [address] [place] [phone] Dec, Encounter for Medicare annua l wellness exam Z00.00 and Neuropathy G62.9 [facility] [place] [address] [id number] [address] [place] [phone] November, [facility] [place] [address] [id number] [address] [place] [phone] November, Encounter for Medicare annua l wellness exam Z00.00 ; 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 ; Mood disorder F39 ; Chronic fatigue, unspecified R53.82 and Neuropathy G62.9 [facility] [place] [address] [id number] [address] [place] [phone] November, Neuropathy G62.9 [facility] [place] [address] [id number] [address] [place] [phone] Oct, Neuropathy G62.9 [facility] [place] [address] [id number] [address] [place] [phone] Oct, Hypertension, benign I10 and Anxiety F41.9 [facility] [place] [address] [id number] [address] [place] [id number] Oct, [facility] [place] [address] [id number] [address] [place] [phone] Oct, [facility] [place] [address] [id number] [address] [place] [phone] Oct, [facility] [place] [address] [id number] [address] [place] [phone] Oct, Neuropathy G62.9 [facility] [place] [address] [id number] [address] [place] [id number] Sep, [facility] [place] [address] [id number] [address] [place] [id number] Sep, Neuropathy G62.9 [facility] [place] [address] [id number] [address] [place] [phone] Sep, [facility] [place] [address] [id number] [address] [place] [phone] Sep, H/O malignant carcinoid tumo r of rectum Z85.040 and Primary insomnia F51.01 [facility] [place] [address] [id number] [address] [place] [phone] Aug, [facility] [place] [address] [id number] [address] [place] [phone] Aug, Neuropathy G62.9 [facility] [place] [address] [id number] [address] [place] [id number] Aug, [facility] [place] [address] [facility] [id number] [address] [place] [phone] Jul, Non-recurrent acute suppurat francine otitis media of left ear without spontaneous rupture of tympanic membrane H66.002 [facility] [place] [address] [id number] [address] [place] [id number] Jul, Neuropathy G62.9 [facility] [place] [address] [id number] [address] [place] [id number] Jun, [facility] [place] [address] [facility] [id number] [address] [place] [phone] Jun, [facility] [place] [address] [facility] [id number] [address] [place] [phone] Jun, Neuropathy G62.9 [facility] [place] [address] [facility] [id number] [address] [place] [phone] Jun, [facility] [place] [address] [facility] [id number] [address] [place] [phone] Jun, [facility] [place] [address] [facility] [id number] [address] [place] [phone] Jun, Lumbar neuritis M54.16 [facility] [place] [address] [facility] [id number] [address] [place] [phone] May, Neuropathy G62.9 [facility] [place] [address] [place] [id number] [address] [place] [phone] May, [facility] [place] [address] [id number] May, Neuropathy G62.9 and Hyperte nsion, benign I10 [facility] [place] [address] [address] Apr, Polyneuropathy G62.9 and Hyp ertension, benign I10 [facility] [place] [address] [id number] 17 Mar, 2018 Chronic pain syndrome G89.4 and Hypertension, benign I10 [place] [address] [place] [id number] [place] [phone] Mar, Polyneuropathy G62.9 and Hyp ertension, benign I10 [facility] [place] [address] [id number] Feb, [facility] [place] [address] [id number] Feb, Hypertension, benign I10 [place] [address] [id number] Feb, Hypertension, benign I10 ; P olyneuropathy G62.9 and Primary insomnia F51.01 [facility] [place] [address] [place] [id number] [address] [place] [phone] Jan, Hypertension, benign I10 and Polyneuropathy G62.9 [facility] [place] [address] [place] [id number] [address] [place] [phone] Jan, Hypertension, benign I10 and Neuropathy G62.9 [facility] [place] [address] [place] [id number] [address] [place] [phone] Jan, [facility] [place] [address] [id number] Dec, Polyneuropathy G62.9 [facility] [place] [address] [id number] [address] [place] [phone] Dec, Mood disorder F39 [facility] [place] [address] [facility] [id number] [address] [place] [phone] November, Polyneuropathy G62.9 [facility] [place] [address] [facility] [id number] [address] [place] [phone] November, Medicare annual wellness vis it, initial Z00.00 [facility] [place] [address] [id number] [address] [place] [phone] November, Mood disorder F39 [facility] [place] [address] [facility] [id number] [address] [place] [phone] Oct, Polyneuropathy G62.9 [facility] [place] [address] [facility] [id number] [address] [place] [phone] Oct, [facility] [place] [address] [facility] [id number] [address] [place] [phone] Oct, [facility] [place] [address] [facility] [id number] [address] [place] [phone] Oct, Mood disorder F39 ; Attentio n to urostomy Z43.6 ; Chronic pain syndrome G89.4 and Polyneuropathy G62.9 [facility] [place] [address] [facility] [id number] [address] [place] [phone] Sep, Polyneuropathy G62.9 [facility] [place] [address] [facility] [id number] [address] [place] [phone] Sep, [facility] [place] [address] [facility] [id number] [address] [place] [phone] Sep, Polyneuropathy G62.9 [facility] [place] [address] [facility] [id number] [address] [place] [phone] Aug, Polyneuropathy G62.9 [facility] [place] [address] [facility] [id number] [address] [place] [phone] Aug, Malignant neoplasm of colon, unspecified part of colon C18.9 and Polyneuropathy G62.9 [facility] [place] [address] [id number] [address] [place] [phone] Aug, Neuropathy G62.9 and Polyneu ropathy G62.9 [facility] [place] [address] [facility] [id number] [address] [place] [id number] Jul, Encounter for drug screening Z02.83 [facility] [place] [address] [id number] [address] [place] [id number] Jul, Polyneuropathy G62.9 [facility] [place] [address] [facility] [id number] [address] [place] [phone] Jul, [facility] [place] [address] [facility] [id number] [address] [place] [phone] Jul, Neuropathy G62.9 and Anxiety F41.9 [facility] [place] [address] [id number] [address] [place] [phone] Jul, [facility] [place] [address] [id number] [address] [place] [phone] Jul, [facility] [place] [address] [facility] [id number] [address] [place] [id number] Jul, [facility] [place] [address] [id number] [address] [place] [phone] Jul, Polyneuropathy G62.9 [facility] [place] [address] [id number] [address] [place] [phone] Jul, [facility] [place] [address] [id number] [address] [place] [id number] Jun, [facility] [place] [address] [facility] [id number] [address] [place] [phone] Jun, [facility] [place] [address] [facility] [id number] [address] [place] [phone] Jun, [facility] [address] [id number] [place] [address] 07 Jun, 2017 Encounter for dental examina tion Z01.20 [facility] [place] [address] [place] [id number] [address] [place] [id number] Jun, Polyneuropathy G62.9 and Anx iety F41.9 [facility] [place] [address] [place] [id number] [address] [place] [phone] Jun, [facility] [address] [id number] [place] [address] May, Dental examination Z01.20 [facility] [place] [address] [address] May, Polyneuropathy G62.9 [facility] [place] [address] [id number] Apr, Polyneuropathy G62.9 [facility] [place] [address] [id number] Apr, Polyneuropathy G62.9 [facility] [place] [address] [address] Apr, Hypertension, benign I10 ; P olyneuropathy G62.9 and Anxiety F41.9 [place] [address] [place] [id number] [address] [place] [id number] Apr, Primary insomnia F51.01 and Polyneuropathy G62.9 [facility] [place] [address] [place] [id number] [address] [place] [phone] Apr, Primary insomnia F51.01 and Polyneuropathy G62.9 [facility] [place] [address] [place] [id number] [address] [place] [phone] Mar, Primary insomnia F51.01 [facility] [place] [address] [place] [id number] [address] [place] [phone] Mar, [facility] [place] [address] [id number] [address] [place] [address], [place] [address] Mar, Polyneuropathy G62.9 [facility] [place] [address] [id number] [address] [place] [address], [place] [address] Feb, Primary insomnia F51.01 [facility] [place] [address] [id number] [address] [place] [address], [place] [address] Feb, [facility] [place] [address] [id number] [address] [place] [address], [place] [address] Feb, [facility] [place] [address] [id number] [address] [place] [address], [place] [address] Feb, Polyneuropathy G62.9 [facility] [place] [address] [id number] [address] [place] [address], [place] [address] Feb, Primary insomnia F51.01 [facility] [place] [address] [id number] [address] [place] [address], [place] [address] Jan, [facility] [place] [address] [id number] [address] [place] [address], [place] [address] Jan, [facility] [place] [address] [id number] [address] [place] [address], [place] [address] Dec, [facility] [place] [address] [id number] [address] [place] [id number] Dec, Primary insomnia F51.01 [facility] [place] [address] [id number] [address] [place] [address], [place] [address] Dec, Primary insomnia F51.01 [facility] [place] [address] [id number] [address] [place] [address], [place] [address] Dec, [facility] [place] [address] [id number] [address] [place] [address], [place] [address] Dec, [facility] [place] [address] [id number] [address] [place] [phone] Dec, [facility] [place] [address] [id number] [address] [place] [phone] Dec, [facility] [place] [address] [facility] [id number] [address] [place] [phone] November, Primary insomnia F51.01 and Polyneuropathy G62.9 [facility] [place] [address] [id number] [address] [place] [phone] November, [facility] [place] [address] [id number] [address] [place] [id number] November, Abdominal pain, left lower q uadrant R10.32 [facility] [place] [address] [facility] [id number] [address] [place] [phone] November, [facility] [place] [address] [facility] [id number] [address] [place] [phone] Oct, [facility] [place] [address] [facility] [id number] [address] [place] [id number] Oct, Abdominal pain, left lower q uadrant R10.32 ; H/O malignant carcinoid tumor of rectum Z85.040 and Neuropathy G62.9 [facility] [place] [address] [facility] [id number] [address] [place] [phone] Oct, [facility] [place] [address] [facility] [id number] [address] [place] [phone] Sep, [facility] [id number] [place] [id number] Sep, [facility] [address] [facility] [id number] [address] [place] [phone] Sep, [facility] [place] [address] [facility] [id number] [address] [place] [phone] Aug, [facility] [place] [address] [facility] [id number] [address] [place] [phone] Aug, [facility] [address] [facility] [id number] [address] [place] [phone] Aug, Abdominal pain, left lower q uadrant R10.32 ; Neuropathy G62.9 and Anxiety F41.9 [facility] [address] [facility] [place] [address] Jul, [facility] [place] [address] [id number] [address] [place] [id number] Jul, [facility] [address] [id number] [address] [place] [phone] Jul, [facility] [place] [address] [id number] [address] [place] [phone] Jul, [facility] [place], [facility] [address] [id number] [address] [place] [id number] Jul, [facility] [place], [facility] [address] [id number] [address] [place] [id number] Jun, [facility] [place], [facility] [address] [id number] [address] [place] [phone] May, [facility] [place], [facility] [address] [id number] [address] [place] [phone] May, [facility] [place], [facility] [address] [id number] [address] [place] [id number] Apr, [facility] [place], [facility] [address] [id number] [address] [place] [id number] Apr, Muscle spasms of both lower extremities M62.838 and Cellulitis, unspecified cellulitis site L03.90 [facility] [place], [facility] [address] [id number] [address] [place] [id number] Apr, [facility] [place], [facility] [address] [id number] [address] [place] [id number] 23 Mar, 2016 Generalized abdominal pain R 10.84 [facility] [place], [facility] [address] [id number] [address] [place] [id number] 20 Mar, 2016 [facility] [place], [facility] [address] [id number] [address] [place] [id number] 14 Mar, 2016 [facility] [place], [facility] [address] [id number] [address] [place] [phone] 14 Mar, 2015 [facility] [place], [facility] [address] [id number] [address] [place] [id number] 13 Mar, 2015 [facility] [place], [facility] [address] [id number] [address] [place] [id number] 12 Mar, 2016 [facility] [place], [facility] [address] [id number] [address] [place] [id number] 09 Mar, 2016 [facility] [place], [facility] [address] [id number] [address] [place] [id number] 06 Mar, 2016 [facility] [place], [facility] [address] [id number] [address] [place] [id number] Feb, Other specified diseases of anus and rectum K62.89 [facility] [place], [facility] [address] [id number] [address] [place] [id number] Feb, [facility] [place], [facility] [address] [id number] [address] [place] [id number] Feb, Dizziness R42 [facility] [place] [address] [id number] [address] [place] [id number] Feb, [facility] [place] [address] [id number] [address] [place] [id number] Jan, Polyneuropathy G62.9 [facility] [place] [address] [id number] [address] [place] [id number] Jan, Other specified diseases of anus and rectum K62.89 [facility] [place] [address] [id number] [address] [place] [id number] Jan, [facility] [address] [id number] [address] [place] [id number] 16 Jan, 2016 [facility] [place] [address] [id number] [address] [place] [phone] Jan, [facility] [place] [address] [id number] [address] [place] [id number] Jan, Dizziness R42 [facility] [address] [id number] [address] [place] [address], [place] [address] Dec, [facility] [address] [id number] [address] [place] [address], [place] [address] Dec, [facility] [address] [id number] [address] [place] [address], [place] [address] Dec, [facility] [address] [id number] [address] [place] [address], [place] [address] Dec, Dizziness R42 [facility] [address] [id number] [address] [place] [address], [place] [address] November, [facility] [address] [id number] [address] [place] [address], [place] [address] Oct, [facility] [address] [id number] [address] [place] [address], [place] [address] Oct, [facility] [address] [id number] [address] [place] [address], [place] [address] Oct, [facility] [address] [id number] [address] [place] [address], [place] [address] Oct, [facility] [address] [id number] [address] [place] [address], [place] [address] Sep, [facility] [address] [id number] [address] [place] [address], [place] [address] Sep, Primary insomnia F51.01 [facility] [address] [id number] [address] [place] [address], [place] [address] Sep, Primary insomnia F51.01 [facility] [address] [id number] [address] [place] [address], [place] [address] Sep, [facility] [address] [id number] [address] [place] [address], [place] [address] Aug, [facility] [address] [id number] [address] [place] [address], [place] [address] Aug, [facility] [place] [address] [id number] [address] [place] [id number] Aug, Primary insomnia F51.01 ; Mo od disorder F39 ; Nausea and vomiting, unspecified intactability, vomiting of unspecified type R11.2 and Diarrhea R19.7 [facility] [place] [address] [id number] Aug, [facility] [place] [address] [id number] Aug, Folliculitis L73.9 [facility] [place] [address] [id number] Aug, [facility] [place] [address] [id number] Aug, [facility] [place] [address] [id number] Jul, Folliculitis L73.9 [facility] [place] [address] [id number] Jul, [facility] [place] [address] [id number] Jun, Folliculitis L73.9 [facility] [place] [address] [id number] Jun, [facility] [place] [address] [id number] May, Polyneuropathy G62.9 [facility] [place] [address] [id number] [address] [place] [id number] May, Other specified diseases of anus and rectum K62.89 [facility] [place] [address] [id number] [address] [place] [id number] May, [facility] [place] [address] [id number] May, Primary insomnia F51.01 [facility] [place] [address] [id number] [address] [place] [id number] May, [facility] [place] [address] [id number] [address] [place] [id number] May, [facility] [place] [address] [id number] [address] [place] [id number] Apr, Other specified diseases of anus and rectum K62.89 ; Chronic fatigue R53.82 ; Urinary tract infection, site not specified N39.0 and Enterococcus as the cause of diseases classified elsewhere B95.2 [facility] [place] [address] [id number] [address] [place] [id number] 16 Apr, 2015 [facility] [place] [address] [id number] [address] [place] [id number] 15 Apr, 2015 [facility] [place] [address] [id number] [address] [place] [id number] 14 Apr, 2015 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 [facility] [place] [address] [id number] [address] [place] [id number] 05 Apr, 2015 [facility] [place] [address] [id number] [address] [place] [phone] 26 Mar, 2015 [facility] [place] [address] [id number] [address] [place] [id number] 23 Mar, 2015 [facility] [place] [address] [id number] [address] [place] [phone] 17 Mar, 2015 [facility] [place] [address] [id number] [address] [place] [id number] 14 Mar, 2015 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 [facility] [place] [address] [id number] [address] [place] [id number] 12 Mar, 2015 [facility] [place] [address] [id number] [address] [place] [id number] 11 Mar, 2015 [facility] [place] [address] [id number] [address] [place] [id number] 11 Mar, 2015 [facility] [address] [id number] [address] [place] [id number] Mar, [facility] [address] [id number] [address] [place] [id number] Feb, [facility] [address] [id number] [address] [place] [phone] Feb, [facility] [address] [id number] [address] [place] [phone] Feb, [facility] [address] [id number] [address] [place] [id number] Jan, [facility] [address] [id number] [address] [place] [id number] Jan, Nausea 787.02 and Neuropathy 355.9 [facility] [address] [id number] [address] [place] [id number] Jan, [facility] [address] [id number] [address] [place] [phone] Jan, [facility] [address] [id number] [address] [place] [id number] Jan, [facility] [address] [id number] [address] [place] [id number] Jan, Dental examination V72.2 [facility] [address] [id number] [address] [place] [phone] Jan, [facility] [address] [id number] [address] [place] [id number] Dec, [facility] [address] [id number] [address] [place] [phone] Dec, [facility] [address] [id number] [address] [place] [id number] Dec, Neuropathy 355.9 [facility] [address] [id number] [address] [place] [address] [place] [address] November, [facility] [address] [id number] [address] [place] [address], [place] [address] November, [facility] [address] [id number] [address] [place] [address], [place] [address] November, [facility] [address] [id number] [address] [place] [address], [place] [address] Oct, [facility] [address] [id number] [address] [place] [address], [place] [address] Oct, [facility] [address] [id number] [address] [place] [address], [place] [address] Sep, [facility] [address] [id number] [address] [place] [address], [place] [address] Sep, [facility] [address] [id number] [address] [place] [address], [place] [address] Sep, [facility] [address] [id number] [address] [place] [address], [place] [address] Sep, [facility] [address] [id number] [address] [place] [address], [place] [address] Sep, [facility] [address] [id number] [address] [place] [address], [place] [address] Sep, [facility] [address] [id number] [address] [place] [address], [place] [address] Sep, [facility] [address] [id number] [address] [place] [address], [place] [address] Sep, [facility] [address] [id number] [address] [place] [address], [place] [address] Aug, [facility] [address] [id number] [address] [place] [address], [place] [address] Aug, [facility] [address] [id number] [address] [place] [address], [place] [address] Aug, [facility] [address] [id number] [address] [place] [address], [place] [address] Aug, 2014 [facility] [address] [id number] [address] [place] [address], [place] [address] Aug, 2014 [facility] [address] [id number] [address] [place] [address], [place] [address] Aug, 2014 [facility] [place] [address] [id number] [address] [place] [address], [place] [address] Aug, 2014 [facility] [address] [id number] [address] [place] [address], [place] [address] Aug, [facility] [address] [id number] [address] [place] [address], [place] [address] Jul, [facility] [address] [id number] [address] [place] [address], [place] [address] Jul, [facility] [address] [id number] [address] [place] [address], [place] [address] Jun, [facility] [address] [id number] [address] [place] [address], [place] [address] Jun, [facility] [address] [id number] [address] [place] [address], [place] [address] Jun, [facility] [address] [id number] [address] [place] [address], [place] [address] Jun, [facility] [place] [address] [id number] [address] [place] [address], [place] [address] Jun, [facility] [place] [address] [id number] [address] [place] [address], [place] [address] Jun, [facility] [place] [address] [id number] [address] [place] [address], [place] [address] Jun, [facility] [place] [address] [id number] [address] [place] [address], [place] [address] Jun, [facility] [place] [address] [id number] [address] [place] [address], [place] [address] Jun, [facility] [place] [address] [id number] [address] [place] [address], [place] [address] Jun, [facility] [address] [id number] [address] [place] [address], [place] [address] Jun, [facility] [place] [address] [id number] [address] [place] [address], [place] [address] May, [facility] [place] [address] [id number] [address] [place] [address], [place] [address] May, [facility] [place] [address] [id number] [address] [place] [address], [place] [address] May, [facility] [place] [address] [id number] [address] [place] [address], [place] [address] May, [facility] [address] [id number] [address] [place] [address], [place] [address] May, [facility] [address] [id number] [address] [place] [address], [place] [address] May, [facility] [place] [address] [id number] [address] [place] [address], [place] [address] May, [facility] [place] [address] [id number] [address] [place] [address], [place] [address] May, [facility] [address] [id number] [address] [place] [address], [place] [address] May, [facility] [place] [address] [id number] [address] [place] [address], [place] [address] Apr, [facility] [place] [address] [id number] [address] [place] [address], [place] [address] Apr, [facility] [place] [address] [id number] [address] [place] [address], [place] [address] Apr, [facility] [place] [address] [id number] [address] [place] [address], [place] [address] Apr, [facility] [place] [facility] [address] [id number] [facility] [place] [address] Apr, [facility] [place] [facility] [address] [id number] [facility] [place] [address] Mar, [facility] [place] [facility] [address] [id number] [facility] [place] [address] Mar, [facility] [place] [facility] [address] [id number] [address] [place] [address], [place] [address] Feb, [facility] [place] [facility] [address] [id number] [address] [place] [address], [place] [address] Feb, [facility] [place] [facility] [address] [id number] [address] [place] [address], [place] [address] Feb, [facility] [place] [facility] [address] [id number] [address] [place] [address], [place] [address] Feb, [facility] [place] [facility] [address] [id number] [address] [place] [address], [place] [address] Feb, [facility] [place] [facility] [address] [id number] [address] [place] [address], [place] [address] Feb, [facility] [place] [facility] [address] [id number] [address] [place] [address], [place] [address] Jan, [facility] [place] [address] [id number] [address] [place] [address], [place] [address] Jan, [facility] [place] [facility] [address] [id number] [address] [place] [address], [place] [address] Jan, [facility] [place] [facility] [address] [id number] [address] [place] [address], [place] [address] Jan, [facility] [place] [facility] [address] [id number] [address] [place] [address], [place] [address] Jan, [facility] [place] [facility] [address] [id number] [address] [place] [address], [place] [address] Jan, [facility] [place] [facility] [address] [id number] [address] [place] [address], [place] [address] Jan, [facility] [address] [id number] [facility] [place] [address] Jan, [facility] [place] [facility] [address] [id number] [facility] [place] [address] Jan, [facility] [address] [id number] [facility] [place] [address] Jan, [facility] [place] [facility] [address] [id number] [address] [place] [address], [place] [address] Jan, [facility] [address] [id number] [facility] [place] [address] Dec, [facility] [address] [id number] [address] [place] [address], [place] [address] Dec, [facility] [address] [id number] [address] [place] [address], [place] [address] Dec, [facility] [address] [id number] [address] [place] [address], [place] [address] Dec, [facility] [address] [id number] [address] [place] [address], [place] [address] Dec, [facility] [address] [id number] [address] [place] [address], [place] [address] Dec, [facility] [address] [id number] [address] [place] [address], [place] [address] November, [facility] [address] [id number] [address] [place] [address], [place] [address] November, [facility] [place] [address] [id number] [address] [place] [address], [place] [address] November, [facility] [place] [facility] [address] [id number] [address] [place] [address], [place] [address] November, [facility] [place] [facility] [address] [id number] [address] [place] [address], [place] [address] November, [facility] [place] [facility] [address] [id number] [address] [place] [address] November, [facility] [address] [id number] [address] [place] [address], [place] [address] Oct, [facility] [address] [id number] [facility] [place] [address] Oct, [facility] [address] [id number] [address] [place] [address], [place] [address] Oct, [facility] [address] [id number] [address] [place] [address], [place] [address] Oct, [facility] [address] [id number] [address] [place] [address], [place] [address] Sep, [facility] [address] [id number] [address] [place] [address], [place] [address] Sep, [facility] [address] [id number] [address] [place] [address], [place] [address] Sep, [facility] [address] [id number] [address] [place] [address], [place] [address] Sep, [facility] [address] [id number] [address] [place] [address], [place] [address] Sep, [facility] [address] [id number] [address] [place] [address], [place] [address] Aug, [facility] [address] [id number] [address] [place] [address], [place] [address] Aug, [facility] [address] [id number] [address] [place] [address], [place] [address] Aug, [facility] [address] [id number] [address] [place] [address], [place] [address] Aug, [facility] [address] [id number] [address] [place] [address], [place] [address] 14 Aug, 2013 [facility] [address] [place] [id number] May, [facility] [address] [id number] [address] [place] [address], [place] [address] May, [facility] [address] [id number] [address] [place] [address], [place] [address] May, [facility] [address] [id number] [address] [place] [address], [place] [address] May, [facility] [address] [id number] [address] [place] [address], [place] [address] May, [facility] [address] [id number] [address] [place] [address], [place] [address] Apr, [facility] [address] [id number] [address] [place] [address], [place] [address] Apr, [facility] [address] [id number] [address] [place] [address], [place] [address] Apr, [facility] [address] [id number] [address] [place] [address], [place] [address] Apr, [facility] [address] [id number] [address] [place] [address], [place] [address] Apr, [facility] [address] [id number] [address] [place] [id number] Apr, [facility] [address] [id number] [address] [place] [address], [place] [address] Apr, [facility] [address] [id number] [address] [place] [id number] 28 Mar, 2013 [facility] [address] [id number] [address] [place] [address], [place] [address] 25 Mar, 2013 [facility] [address] [id number] [address] [place] [address], [place] [address] 24 Mar, 2013 [facility] [address] [id number] [address] [place] [id number] 16 Mar, 2013 [facility] [address] [id number] [address] [place] [id number] Mar, [facility] [address] [id number] [address] [place] [address], [place] [address] Mar, [facility] [address] [id number] [address] [place] [address], [place] [address] Feb, [facility] [address] [id number] [address] [place] [address], [place] [address] Feb, [facility] [address] [id number] [address] [place] [address], [place] [address] Feb, [facility] [address] [id number] [address] [place] [address], [place] [address] Feb, [facility] [address] [id number] [address] [place] [address], [place] [address] Feb, [facility] [address] [id number] [address] [place] [address], [place] [address] Feb, [facility] [address] [id number] [address] [place] [address], [place] [address] Jan, [facility] [address] [id number] [address] [place] [address], [place] [address] Dec, [facility] [address] [id number] [address] [place] [address], [place] [address] Dec, [facility] [address] [id number] [address] [place] [address], [place] [address] Dec, [facility] [address] [id number] [address] [place] [address], [place] [address] Dec, [facility] [address] [id number] [address] [place] [address], [place] [address] Dec, [facility] [address] [id number] [address] [place] [address], [place] [address] Dec, [facility] [address] [id number] [address] [place] [address], [place] [address] 17 Dec, 2012 [facility] [address] [id number] [address] [place] [address], [place] [address] Dec, [facility] [address] [id number] [address] [place] [address], [place] [address] Dec, [facility] [address] [id number] [address] [place] [address], [place] [address] November, [facility] [address] [id number] [address] [place] [address], [place] [address] November, [facility] [address] [id number] [address] [place] [address], [place] [address] Oct, [facility] [address] [id number] [address] [place] [address], [place] [address] Sep, [facility] [address] [id number] [address] [place] [address], [place] [address] Sep, [facility] [address] [id number] [address] [place] [address], [place] [address] Sep, [facility] [address] [id number] [address] [place] [address], [place] [address] Sep, [facility] [address] [id number] [address] [place] [address], [place] [address] Aug, [facility] [address] [id number] [address] [place] [address], [place] [address] Aug, [facility] [address] [id number] [address] [place] [address], [place] [address] Jul, [facility] [address] [id number] [address] [place] [address], [place] [address] Jul, [facility] [address] [id number] [address] [place] [address], [place] [id number] Jul, [facility] [address] [id number] [address] [place] [address], [place] [id number] Sep, [facility] [address] [id number] [address] [place] [address], [place] [id number] Sep, [facility] [place] [address] [facility] [id number] [address] [place] [address] Sep, IMMUNIZATIONS No Known Immunizations SOCIAL HISTORY Never Assessed REASON FOR VISIT PLAN OF CARE VITAL SIGNS Height 67 in 2014-09-15 Weight 173 lbs 2014-09-15 Temperature 97.6 degrees Fahrenheit 2014-09-15 Heart Rate 80 bpm 2014-09-15 Respiratory Rate 18 2014-09-15 Blood pressure systolic 116 mmHg 2014-09-15 Blood pressure diastolic 70 mmHg 2014-09-15 MEDICATIONS Unknown Medications RESULTS No Results PROCEDURES [...] bowel obstruction, Dehydration -H 01/01/17 Hospitalization History [facility]- UTI/Sepsis 01/18/2018 Hospitalization History [facility] - infection 4 days 05/2018
--- OUTSIDE RECORDS SUMMARY | 2020-01-14 23:08 | XMS REPORT ---
Author Author Melvin Hwang Doctor Organization [facility] Address Unknown Phone Unavailable Care Team Providers Care Tank Pumper Name Role Phone Migration, Doctor Unavailable Unavailable PROBLEMS Type Condition ICD9-CM Code [id number] Code Onset Dates Condition S tatus SNOMED Code Problem Incontinence of feces, unspecified fecal incontinence type R15.9 Active 23648504 Problem Primary insomnia F51.01 Active 193 455952 Problem Hydronephrosis with ureteral stricture, not else where classified N13.1 Active 24757080 Problem Chronic fatigue, unspecified R53.82 A ctive 368763822 Problem Hypertension, benign I10 Active 55662931 Problem Mood disorder F39 Active 134096 05 Problem Neuropathy G62.9 Active 327191561 Problem Chronic pain syndrome G89.4 Active 264038888 Problem Abdominal pain, left lower quadrant R10.32 Active 251867962 Problem 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 [id number] [address] [place] [phone] Dec, Encounter for Medicare annua l wellness exam Z00.00 and Neuropathy G62.9 [place] [id number] [facility] [id number] [address] [place] [address] November, [place] [address] [facility] [id number] [address] [place] [phone] November, Encounter for Medicare annua l wellness exam Z00.00 ; 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 ; Mood disorder F39 ; Chronic fatigue, unspecified R53.82 and Neuropathy G62.9 [facility] [address] [id number] [address] [place] [address] November, Neuropathy G62.9 [facility] [address] [id number] [address] [place] [address] Oct, Neuropathy G62.9 [facility] [address] [id number] [address] [place] [address] Oct, Hypertension, benign I10 and Anxiety F41.9 [facility] [address] [id number] [address] [place] [phone] Oct, [facility] [address] [id number] [address] [place] [phone] Oct, [facility] [address] [id number] [address] [place] [phone] Oct, [facility] [address] [id number] [address] [place] [address] Oct, Neuropathy G62.9 [facility] [address] [id number] [address] [place] [phone] Sep, [facility] [address] [id number] [address] [place] [address] Sep, Neuropathy G62.9 [facility] [address] [id number] [address] [place] [address] Sep, [facility] [address] [id number] [address] [place] [address] Sep, H/O malignant carcinoid tumo r of rectum Z85.040 and Primary insomnia F51.01 [facility] [address] [id number] [address] [place] [address] Aug, [facility] [address] [id number] [address] [place] [address] Aug, Neuropathy G62.9 [facility] [address] [facility] [id number] [address] [place] [phone] Aug, [facility] [address] [facility] [id number] [address] [place] [phone] Jul, Non-recurrent acute suppurat francine otitis media of left ear without spontaneous rupture of tympanic membrane H66.002 [facility] [address] [facility] [id number] [address] [place] [address] Jul, Neuropathy G62.9 [facility] [address] [facility] [id number] [address] [place] [phone] Jun, [facility] [address] [facility] [id number] [address] [place] [phone] Jun, [facility] [address] [place] [id number] [address] [place] [address] Jun, Neuropathy G62.9 [facility] [address] [facility] [id number] [address] [place] [phone] Jun, [facility] [address] [facility] [id number] [address] [place] [id number] Jun, [facility] [address] [facility] [id number] [address] [place] [address] Jun, Lumbar neuritis M54.16 [facility] [address] [facility] [id number] [address] [place] [address] May, Neuropathy G62.9 [facility] [address] [facility] [id number] [address] [place] [phone] May, [facility] [address] [facility] [id number] [address] [place] [address] May, Neuropathy G62.9 and Hyperte nsion, benign I10 [facility] [address] [facility] [id number] [address] [place] [address] Apr, Polyneuropathy G62.9 and Hyp ertension, benign I10 [facility] [address] [facility] [id number] [address] [place] [address] 17 Mar, 2018 Chronic pain syndrome G89.4 and Hypertension, benign I10 [facility] [address] [facility] [id number] [address] [place] [address] 11 Mar, 2018 Polyneuropathy G62.9 and Hyp ertension, benign I10 [facility] [address] [facility] [id number] [address] [place] [phone] 27 Feb, 2018 [facility] [address] [facility] [id number] [address] [place] [address] 16 Feb, 2018 Hypertension, benign I10 [facility] [address] [place] [id number] [place] [phone] 15 Feb, 2018 Hypertension, benign I10 ; P olyneuropathy G62.9 and Primary insomnia F51.01 [facility] [address] [place] [id number] [address] [place] [phone] 17 Jan, 2018 Hypertension, benign I10 and Polyneuropathy G62.9 [facility] [address] [facility] [id number] [address] [place] [phone] Jan, Hypertension, benign I10 and Neuropathy G62.9 [facility] [address] [place] [id number] [address] [place] [phone] Jan, [facility] [address] [place] [id number] [address] [place] [address] Dec, Polyneuropathy G62.9 [facility] [address] [facility] [id number] [address] [place] [phone] 14 Dec, 2017 Mood disorder F39 [facility] [address] [place] [id number] [place] [address] November, Polyneuropathy G62.9 [facility] [address] [place] [id number] [address] [place] [address] November, Medicare annual wellness vis it, initial Z00.00 [facility] [address] [place] [id number] [address] [place] [address] November, Mood disorder F39 [facility] [address] [facility] [id number] [address] [place] [address] Oct, Polyneuropathy G62.9 [facility] [address] [facility] [id number] [address] [place] [phone] Oct, [facility] [address] [facility] [id number] [address] [place] [phone] Oct, [facility] [address] [facility] [id number] [address] [place] [phone] Oct, Mood disorder F39 ; Attentio n to urostomy Z43.6 ; Chronic pain syndrome G89.4 and Polyneuropathy G62.9 [facility] [address] [facility] [id number] [address] [place] [address] Sep, Polyneuropathy G62.9 [facility] [address] [facility] [id number] [address] [place] [phone] Sep, [facility] [address] [facility] [id number] [address] [place] [address] Sep, Polyneuropathy G62.9 [facility] [address] [facility] [id number] [address] [place] [address] Aug, Polyneuropathy G62.9 [facility] [address] [facility] [id number] [address] [place] [address] Aug, Malignant neoplasm of colon, unspecified part of colon C18.9 and Polyneuropathy G62.9 [facility] [address] [facility] [id number] [address] [place] [address] Aug, Neuropathy G62.9 and Polyneu ropathy G62.9 [facility] [address] [facility] [id number] [address] [place] [address] Jul, Encounter for drug screening Z02.83 [facility] [address] [id number] [address] [place] [address] Jul, Polyneuropathy G62.9 [facility] [address] [id number] [address] [place] [address] Jul, [facility] [address] [facility] [id number] [address] [place] [phone] Jul, Neuropathy G62.9 and Anxiety F41.9 [facility] [address] [id number] [address] [place] [address] Jul, [facility] [address] [id number] [address] [place] [phone] Jul, [facility] [address] [facility] [id number] [address] [place] [address] Jul, [facility] [address] [facility] [id number] [address] [place] [address] Jul, Polyneuropathy G62.9 [facility] [address] [facility] [id number] [address] [place] [phone] Jul, [facility] [address] [facility] [id number] [address] [place] [phone] Jun, [facility] [address] [facility] [id number] [address] [place] [phone] Jun, [facility] [address] [facility] [id number] [address] [place] [address] Jun, [facility] [address] [id number] [place] [address] 07 Jun, 2017 Encounter for dental examina tion Z01.20 [facility] [address] [facility] [id number] [address] [place] [address] Jun, Polyneuropathy G62.9 and Anx iety F41.9 [facility] [address] [facility] [id number] [address] [place] [phone] Jun, [facility] [id number] [place] [address] May, Dental examination Z01.20 [facility] [id number] [place] [address] May, Polyneuropathy G62.9 [facility] [address] [place] [id number] [address] [place] [address] Apr, Polyneuropathy G62.9 [facility] [address] [place] [id number] [address] [place] [address] Apr, Polyneuropathy G62.9 [facility] [address] [place] [id number] [address] [place] [address] Apr, Hypertension, benign I10 ; P olyneuropathy G62.9 and Anxiety F41.9 [facility] [address] [place] [id number] [address] [place] [address] Apr, Primary insomnia F51.01 and Polyneuropathy G62.9 [facility] [address] [place] [id number] [address] [place] [address] Apr, Primary insomnia F51.01 and Polyneuropathy G62.9 [facility] [address] [place] [id number] [address] [place] [address] Mar, Primary insomnia F51.01 [facility] [address] [place] [address] Mar, [facility] [address] [place] [id number] [address] [place] [address] Mar, Polyneuropathy G62.9 [facility] [address] [place] [id number] [address] [place] [address] Feb, Primary insomnia F51.01 [facility] [address] [place] [id number] [address] [place] [phone] Feb, [facility] [address] [place] [id number] [address] [place] [address] Feb, [facility] [address] [id number] [address] [place] [address] Feb, Polyneuropathy G62.9 [facility] [address] [id number] [address] [place] [address] Feb, Primary insomnia F51.01 [facility] [address] [id number] [address] [place] [address], [place] [address] Jan, [facility] [address] [id number] [address] [place] [address] Jan, [facility] [address] [id number] [address] [place] [address] Dec, [facility] [address] [id number] [address] [place] [address] Dec, Primary insomnia F51.01 [facility] [address] [id number] [address] [place] [address] Dec, Primary insomnia F51.01 [facility] [address] [id number] [address] [place] [address], [place] [address] Dec, [facility] [address] [id number] [address] [place] [address] Dec, [facility] [address] [id number] [address] [place] [address] Dec, [facility] [address] [id number] [address] [place] [address] Dec, [facility] [address] [facility] [id number] [address] [place] [address] November, Primary insomnia F51.01 and Polyneuropathy G62.9 [facility] [address] [id number] [address] [place] [address] November, [facility] [address] [facility] [id number] [address] [place] [address] November, Abdominal pain, left lower q uadrant R10.32 [facility] [address] [id number] [address] [place] [address] November, [facility] [address] [id number] [address] [place] [address] Oct, [facility] [address] [id number] [address] [place] [address] Oct, Abdominal pain, left lower q uadrant R10.32 ; H/O malignant carcinoid tumor of rectum Z85.040 and Neuropathy G62.9 [facility] [address] [id number] [address] [place] [address] Oct, [facility] [address] [facility] [id number] [address] [place] [address] Sep, [facility] [id number] [id number] Sep, [facility] [address] [id number] [address] [place] [address] Sep, [facility] [address] [id number] [address] [place] [address] Aug, [facility] [address] [facility] [id number] [address] [place] [address] Aug, [facility] [address] [id number] [address] [place] [address] Aug, Abdominal pain, left lower q uadrant R10.32 ; Neuropathy G62.9 and Anxiety F41.9 [facility] [address] [place] [address] Jul, [facility] [address] [facility] [id number] [address] [place] [address] Jul, [facility] [address] [id number] [address] [place] [address] Jul, [facility] [address] [facility] [id number] [address] [place] [address] Jul, [facility] [address] [id number] [address] [place] [address] Jul, [facility] [address] [id number] [address] [place] [address] Jun, [facility] [address] [id number] [address] [place] [address] May, [facility] [address] [id number] [address] [place] [address] May, [facility] [address] [id number] [address] [place] [address] Apr, [facility] [address] [id number] [address] [place] [address] Apr, Muscle spasms of both lower extremities M62.838 and Cellulitis, unspecified cellulitis site L03.90 [facility] [address] [id number] [address] [place] [address] Apr, [facility] [address] [id number] [address] [place] [address] 23 Mar, 2016 Generalized abdominal pain R 10.84 [facility] [address] [id number] [address] [place] [address] 20 Mar, 2016 [facility] [address] [id number] [address] [place] [address] 14 Mar, 2016 [facility] [address] [id number] [address] [place] [address] 14 Mar, 2016 [facility] [address] [id number] [address] [place] [address] 13 Mar, 2016 [facility] [address] [id number] [address] [place] [address] 12 Mar, 2016 [facility] [address] [id number] [address] [place] [address] 09 Mar, 2016 [facility] [address] [id number] [address] [place] [address] Mar, [facility] [address] [id number] [address] [place] [address] Feb, Other specified diseases of anus and rectum K62.89 [facility] [address] [id number] [address] [place] [address] Feb, [facility] [address] [id number] [address] [place] [address] Feb, Dizziness R42 [facility] [address] [id number] [address] [place] [address] Feb, [facility] [address] [id number] [address] [place] [address] Jan, Polyneuropathy G62.9 [facility] [address] [id number] [address] [place] [address] Jan, Other specified diseases of anus and rectum K62.89 [facility] [address] [id number] [address] [place] [address] Jan, [facility] [address] [id number] [address] [place] [address] Jan, [facility] [address] [id number] [address] [place] [phone] Jan, [facility] [address] [id number] [address] [place] [address] Jan, Dizziness R42 [facility] [address] [id number] [address] [place] [phone] Dec, [facility] [address] [id number] [address] [place] [address] Dec, [facility] [address] [id number] [address] [place] [phone] Dec, [facility] [address] [id number] [address] [place] [id number] Dec, Dizziness R42 [facility] [address] [facility] [id number] [address] [place] [phone] November, [facility] [address] [facility] [id number] [address] [place] [phone] Oct, [facility] [address] [facility] [id number] [address] [place] [phone] Oct, [facility] [address] [facility] [id number] [address] [place] [phone] Oct, [facility] [address] [facility] [id number] [address] [place] [address] Oct, [facility] [address] [facility] [id number] [address] [place] [address] Sep, [facility] [address] [place] [id number] [address] [place] [address] Sep, Primary insomnia F51.01 [facility] [address] [facility] [id number] [address] [place] [address] Sep, Primary insomnia F51.01 [facility] [address] [id number] [address] [place] [phone] Sep, [facility] [address] [facility] [id number] [address] [place] [phone] Aug, [facility] [address] [id number] [address] [place] [phone] Aug, [facility] [address] [facility] [id number] [address] [place] [phone] Aug, Primary insomnia F51.01 ; Mo od disorder F39 ; Nausea and vomiting, unspecified intactability, vomiting of unspecified type R11.2 and Diarrhea R19.7 [facility] [address] [facility] [id number] [address] [place] [phone] Aug, [facility] [address] [id number] [address] [place] [phone] Aug, Folliculitis L73.9 [facility] [address] [id number] [address] [place] [phone] Aug, [facility] [address] [id number] [address] [place] [phone] Aug, [facility] [address] [id number] [address] [place] [id number] Jul, Folliculitis L73.9 [facility] [address] [id number] [address] [place] [phone] Jul, [facility] [address] [facility] [id number] [address] [place] [id number] Jun, Folliculitis L73.9 [facility] [address] [facility] [id number] [address] [place] [phone] Jun, [facility] [address] [facility] [id number] [address] [place] [id number] May, Polyneuropathy G62.9 [facility] [address] [id number] [address] [place] [id number] May, Other specified diseases of anus and rectum K62.89 [facility] [address] [facility] [id number] [address] [place] [id number] May, [facility] [address] [facility] [id number] [address] [place] [phone] May, Primary insomnia F51.01 [facility] [address] [id number] [address] [place] [phone] May, [facility] [address] [facility] [id number] [address] [place] [id number] May, [facility] [address] [facility] [id number] [address] [place] [phone] Apr, Other specified diseases of anus and rectum K62.89 ; Chronic fatigue R53.82 ; Urinary tract infection, site not specified N39.0 and Enterococcus as the cause of diseases classified elsewhere B95.2 [facility] [address] [id number] [address] [place] [id number] 16 Apr, 2015 [facility] [address] [id number] [address] [place] [address] 15 Apr, 2015 [facility] [address] [id number] [address] [place] [address] 14 Apr, 2015 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 [facility] [address] [id number] [address] [place] [id number] 05 Apr, 2015 [facility] [address] [id number] [address] [place] [address] 26 Mar, 2015 [facility] [address] [id number] [address] [place] [id number] 23 Mar, 2015 [facility] [address] [id number] [address] [place] [id number] 17 Mar, 2015 [facility] [address] [id number] [address] [place] [address] 14 Mar, 2015 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 [facility] [address] [id number] [address] [place] [id number] 12 Mar, 2015 [facility] [address] [id number] [address] [place] [id number] 11 Mar, 2015 [facility] [address] [id number] [address] [place] [id number] 11 Mar, 2015 [facility] [address] [id number] [address] [place] [address] 10 Mar, 2015 [facility] [address] [id number] [address] [place] [id number] Feb, [facility] [address] [id number] [address] [place] [id number] 14 Feb, 2015 [facility] [address] [id number] [address] [place] [address] Feb, [facility] [address] [id number] [address] [place] [id number] Jan, [facility] [address] [id number] [address] [place] [id number] Jan, Nausea 787.02 and Neuropathy 355.9 [facility] [address] [id number] [address] [place] [address] Jan, [facility] [address] [id number] [address] [place] [id number] Jan, [facility] [address] [id number] [address] [place] [address] Jan, [facility] [address] [id number] [address] [place] [id number] Jan, Dental examination V72.2 [facility] [address] [id number] [address] [place] [id number] Jan, [facility] [address] [id number] [address] [place] [address] Dec, [facility] [address] [id number] [address] [place] [address] Dec, [facility] [address] [id number] [address] [place] [id number] Dec, Neuropathy 355.9 [facility] [address] [id number] [address] [place] [id number] November, [facility] [address] [id number] [address] [place] [id number] November, [facility] [address] [id number] [address] [place] [address] November, [facility] [address] [id number] [address] [place] [address] Oct, [facility] [address] [id number] [address] [place] [address] Oct, [facility] [address] [id number] [address] [place] [address], [place] [address] Sep, [facility] [address] [id number] [address] [place] [id number] Sep, [facility] [address] [id number] [address] [place] [address], [place] [address] Sep, [facility] [address] [id number] [address] [place] [id number] Sep, [facility] [address] [id number] [address] [place] [address], [place] [address] Sep, [facility] [address] [id number] [address] [place] [address] Sep, [facility] [address] [id number] [address] [place] [id number] Sep, [facility] [address] [id number] [address] [place] [id number] Sep, [facility] [address] [id number] [address] [place] [address] Aug, [facility] [address] [id number] [address] [place] [address] Aug, [facility] [address] [id number] [address] [place] [address] Aug, 2014 [facility] [address] [id number] [address] [place] [id number] Aug, 2014 [facility] [address] [id number] [address] [place] [address] Aug, [facility] [address] [id number] [address] [place] [address] Aug, 2014 [facility] [address] [id number] [address] [place] [address] Aug, [facility] [address] [id number] [address] [place] [address], [place] [address] Aug, [facility] [address] [id number] [address] [place] [address], [place] [address] Jul, [facility] [address] [id number] [address] [place] [address], [place] [address] Jul, [facility] [address] [id number] [address] [place] [address], [place] [address] Jun, [facility] [address] [id number] [address] [place] [address], [place] [address] Jun, [facility] [address] [id number] [address] [place] [address], [place] [address] Jun, [facility] [address] [id number] [address] [place] [address], [place] [address] Jun, [facility] [address] [id number] [address] [place] [address], [place] [address] Jun, [facility] [address] [id number] [address] [place] [address], [place] [address] Jun, [facility] [address] [id number] [address] [place] [address], [place] [address] Jun, [facility] [address] [id number] [address] [place] [address], [place] [address] Jun, [facility] [address] [id number] [address] [place] [address], [place] [address] Jun, [facility] [address] [id number] [address] [place] [address], [place] [address] Jun, [facility] [address] [id number] [address] [place] [address], [place] [address] Jun, [facility] [address] [id number] [address] [place] [address], [place] [address] May, [facility] [address] [id number] [address] [place] [address], [place] [address] May, [facility] [address] [id number] [address] [place] [address], [place] [address] May, [facility] [address] [id number] [address] [place] [address], [place] [address] May, [facility] [address] [id number] [address] [place] [address], [place] [address] May, [facility] [address] [id number] [address] [place] [address], [place] [address] May, [facility] [address] [id number] [address] [place] [address], [place] [address] May, [facility] [address] [id number] [address] [place] [address], [place] [address] May, [facility] [address] [id number] [address] [place] [address], [place] [address] May, [facility] [address] [id number] [address] [place] [address], [place] [address] Apr, [facility] [address] [id number] [address] [place] [address], [place] [address] Apr, [facility] [address] [id number] [address] [place] [address], [place] [address] Apr, [facility] [address] [id number] [address] [place] [address], [place] [address] Apr, [facility] [address] [id number] [address] [place] [address], [place] [address] Apr, [facility] [address] [id number] [address] [place] [address], [place] [address] Mar, [facility] [address] [id number] [address] [place] [address], [place] [address] Mar, [facility] [address] [id number] [address] [place] [address], [place] [address] Feb, [facility] [address] [id number] [facility] [place] [address] Feb, [facility] [address] [id number] [facility] [place] [address] Feb, [facility] [address] [id number] [facility] [place] [address] Feb, [facility] [address] [id number] [facility] [place] [address] Feb, [facility] [address] [id number] [facility] [place] [address] Feb, [facility] [address] [id number] [facility] [place] [address] Jan, [facility] [address] [id number] [facility] [place] [address] Jan, [facility] [address] [id number] [address] [place] [address], [place] [address] Jan, [facility] [address] [id number] [address] [place] [address], [place] [address] Jan, [facility] [address] [id number] [address] [place] [address], [place] [address] Jan, [facility] [address] [id number] [address] [place] [address], [place] [address] Jan, [facility] [address] [id number] [address] [place] [address], [place] [address] Jan, [facility] [address] [id number] [address] [place] [address], [place] [address] Jan, [facility] [address] [id number] [address] [place] [address], [place] [address] Jan, [facility] [address] [id number] [address] [place] [address], [place] [address] Jan, [facility] [address] [id number] [address] [place] [address], [place] [address] Jan, [facility] [address] [id number] [facility] [place] [address] Dec, [facility] [address] [id number] [facility] [place] [address] Dec, [facility] [address] [id number] [facility] [place] [address] Dec, [facility] [address] [id number] [address] [place] [address], [place] [address] Dec, [facility] [address] [id number] [address] [place] [address], [place] [address] Dec, [facility] [address] [id number] [address] [place] [address], [place] [address] Dec, [facility] [address] [id number] [address] [place] [address], [place] [address] November, [facility] [address] [id number] [address] [place] [address], [place] [address] November, [facility] [address] [id number] [address] [place] [address], [place] [address] November, [facility] [address] [id number] [address] [place] [address], [place] [address] November, [facility] [address] [id number] [address] [place] [address], [place] [address] November, [facility] [address] [id number] [address] [place] [address], [place] [address] November, [facility] [address] [id number] [address] [place] [address], [place] [address] Oct, [facility] [address] [id number] [address] [place] [address], [place] [address] Oct, [facility] [address] [id number] [address] [place] [address], [place] [address] Oct, [facility] [address] [id number] [address] [place] [address], [place] [address] 16 Oct, 2013 [facility] [address] [id number] [address] [place] [address], [place] [address] 17 Sep, 2013 [facility] [address] [id number] [address] [place] [address], [place] [address] 17 Sep, 2013 [facility] [address] [id number] [address] [place] [address], [place] [address] Sep, [facility] [address] [id number] [address] [place] [address], [place] [address] Sep, [facility] [address] [id number] [address] [place] [address], [place] [address] Sep, [facility] [address] [id number] [address] [place] [address], [place] [address] Aug, [facility] [address] [id number] [address] [place] [address], [place] [address] Aug, [facility] [address] [id number] [address] [place] [address], [place] [address] Aug, [facility] [address] [id number] [address] [place] [address], [place] [address] Aug, [facility] [address] [id number] [address] [place] [address], [place] [address] Aug, [facility] [address] [place] [id number] May, [facility] [address] [id number] [address] [place] [address], [place] [address] May, [facility] [address] [id number] [address] [place] [address], [place] [address] May, [facility] [address] [id number] [address] [place] [address], [place] [address] May, [facility] [address] [id number] [address] [place] [address], [place] [address] May, [facility] [address] [id number] [address] [place] [address], [place] [address] Apr, [facility] [address] [id number] [address] [place] [address], [place] [address] Apr, [facility] [address] [id number] [address] [place] [address], [place] [address] Apr, [facility] [address] [id number] [address] [place] [address], [place] [address] Apr, [facility] [address] [id number] [address] [place] [address], [place] [address] Apr, [facility] [address] [id number] [address] [place] [address], [place] [address] Apr, [facility] [address] [id number] [address] [place] [address], [place] [address] Apr, [facility] [address] [id number] [address] [place] [address], [place] [address] Mar, [facility] [address] [id number] [address] [place] [address], [place] [address] 25 Mar, 2013 [facility] [address] [id number] [address] [place] [address], [place] [address] 24 Mar, 2013 [facility] [address] [id number] [address] [place] [address], [place] [address] 16 Mar, 2013 [facility] [address] [id number] [address] [place] [address], [place] [address] 12 Mar, 2013 [facility] [address] [id number] [address] [place] [address], [place] [address] 06 Mar, 2013 [facility] [address] [id number] [address] [place] [address], [place] [address] Feb, [facility] [address] [id number] [address] [place] [address], [place] [address] Feb, [facility] [address] [id number] [address] [place] [address], [place] [address] Feb, [facility] [address] [id number] [address] [place] [address], [place] [address] Feb, [facility] [address] [id number] [address] [place] [address], [place] [address] Feb, [facility] [address] [id number] [address] [place] [address], [place] [address] Feb, [facility] [address] [id number] [address] [place] [address], [place] [address] Jan, [facility] [address] [id number] [address] [place] [address], [place] [address] Dec, [facility] [address] [id number] [address] [place] [address], [place] [address] Dec, [facility] [address] [id number] [address] [place] [address], [place] [address] Dec, [facility] [address] [id number] [address] [place] [address], [place] [address] Dec, [facility] [address] [id number] [address] [place] [address], [place] [address] Dec, [facility] [address] [id number] [address] [place] [address], [place] [address] Dec, [facility] [address] [id number] [address] [place] [address], [place] [address] Dec, [facility] [address] [id number] [address] [place] [address], [place] [address] Dec, [facility] [address] [id number] [address] [place] [address], [place] [address] Dec, [facility] [address] [id number] [address] [place] [address], [place] [address] November, [facility] [address] [id number] [address] [place] [address], [place] [address] November, [facility] [address] [id number] [address] [place] [address] 03 Oct, 2012 [facility] [address] [id number] [address] [place] [address] Sep, [facility] [address] [id number] [address] [place] [address] Sep, [facility] [address] [id number] [address] [place] [phone] Sep, [facility] [address] [id number] [address] [place] [phone] Sep, [facility] [address] [id number] [address] [place] [phone] Aug, [facility] [address] [id number] [address] [place] [phone] Aug, [facility] [address] [id number] [address] [place] [id number] Jul, [facility] [address] [id number] [address] [place] [id number] Jul, [facility] [address] [id number] [address] [place] [id number] Jul, [facility] [address] [id number] [address] [place] [phone] Sep, [facility] [address] [id number] [address] [place] [id number] 17 Sep, 2011 [facility] [address] [id number] [address] [place] [phone] 10 Sep, 2011 IMMUNIZATIONS No Known Immunizations SOCIAL HISTORY Never Assessed REASON FOR VISIT EMR-[facility] [place] PLAN OF CARE VITAL SIGNS MEDICATIONS Medication Instructions Dosage Frequency Start Date End Date Duration S tat Klonopin 2 mg take 1 tablet (2 mg) by oral route 2 times per day PRN FOR ANXIETY 30 Sep, 2014 Active Zoloft 100 mg 1 tablet by Oral route 1 time per day 16 J an, 2015 Active Acidophilus 175 mg 1 capsule by Oral ro [place] 2 times per day crush and mix in soft food Aug, Active amitriptyline 25 mg 1 tablet by Oral route 1 time per day Sep, Active Cipro 500 mg 1 tablet by Oral route every 12 hours for 10 day(s) Feb, Active Bactrim DS 800-160 mg 1 tablet by Oral route 2 times p er day for 10 day(s) Dec, Active promethazine 25 mg 1 tablet by Oral route every 6 hours PRN Sep, Active Lyrica 100 mg take 1 capsule by Oral route 2 times per day Jun, Active Gabapentin 600 mg take 1 tablet (600 mg) by oral route 3 times per day Aug, Active dicyclomine 10 mg 1 capsule by Oral route every 6 hours PRN voucher 1st fill Sep, Active Acyclovir 400 mg take 1 tablet by Oral route 2 times p er day for 7 days May, Active Percocet 10-325 mg take 1 tablet by ora l route every 4 hours as needed for pain Sep, Active oxycodone 30 mg take 1 tablet (30 mg) by oral route ev lindy 6 hours Sep, Active Protonix 40 mg 1 tablet by Oral route 1 time per day Sep, Active RESULTS No Results PROCEDURES No [...] bowel obstruction, Dehydration -[facility] 01/01/17 [facility]2018 Hospitalization History [facility] - infection 4 days 05/2018
--- OUTSIDE RECORDS SUMMARY | 2020-01-14 23:08 | XMS REPORT ---
Author Author Melvin BENTLEY Organization [facility] Address [address] [place] [address] Care Team Providers Care Scientific Aide Name Role Phone LINDA BENTLEY Unavailable PROBLEMS Type Condition ICD9-CM Code HCD46-ES Code Onset Dates Condition S tatus SNOMED Code Problem Incontinence of feces, unspecified fecal incontinence type R15.9 Active 34824027 Problem Primary insomnia F51.01 Active 193 711502 Problem Hydronephrosis with ureteral stricture, not else where classified N13.1 Active 75480070 Problem Chronic fatigue, unspecified R53.82 A ctive 638039900 Problem Hypertension, benign I10 Active 87797803 Problem Mood disorder F39 Active 192707 05 Problem Neuropathy G62.9 Active 934990005 Problem Chronic pain syndrome G89.4 Active 111749490 Problem Abdominal pain, left lower quadrant R10.32 Active 003512045 Problem 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 Active 749058301 Problem 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 555791655 Problem Anxiety F41.9 Active 52714950 Problem Polyneuropathy G62.9 Active 44715 000 Problem Malignant neoplasm of colon, unspecified part of colon C18.9 Active 976570704 Problem Attention to urostomy Z43.6 Active 885757966 ALLERGIES Substance Reaction Event Type Date Status Morphine itching Drug Allergy Sep, Active Codeine nausea and vomiting Drug Allergy Sep, Active ENCOUNTERS Encounter Location Date Diagnosis [facility] [address] [facility] [id number] [address] [place] [phone] Dec, [facility] [address] [facility] [id number] [address] [place] [id number] Dec, Encounter for Medicare annua l wellness exam Z00.00 and Neuropathy G62.9 [facility] [address] [facility] [id number] [address] [place] [phone] November, [facility] [address] [facility] [id number] [address] [place] [phone] November, Encounter for Medicare annua l wellness exam Z00.00 ; 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 ; Mood disorder F39 ; Chronic fatigue, unspecified R53.82 and Neuropathy G62.9 [facility] [address] [id number] [address] [place] [address] November, Neuropathy G62.9 [facility] [address] [id number] [address] [place] [phone] Oct, Neuropathy G62.9 [facility] [address] [id number] [address] [place] [phone] Oct, Hypertension, benign I10 and Anxiety F41.9 [facility] [address] [facility] [id number] [address] [place] [phone] Oct, [facility] [address] [id number] [address] [place] [phone] Oct, [facility] [address] [id number] [address] [place] [phone] Oct, [facility] [address] [id number] [address] [place] [address] Oct, Neuropathy G62.9 [facility] [address] [facility] [id number] [address] [place] [phone] Sep, [facility] [address] [id number] [address] [place] [phone] Sep, Neuropathy G62.9 [facility] [address] [id number] [address] [place] [address] Sep, [facility] [address] [facility] [id number] [address] [place] [address] Sep, H/O malignant carcinoid tumo r of rectum Z85.040 and Primary insomnia F51.01 [facility] [address] [id number] [address] [place] [phone] Aug, [facility] [address] [id number] [address] [place] [address] Aug, Neuropathy G62.9 [facility] [address] [id number] [address] [place] [phone] Aug, [facility] [address] [facility] [id number] [address] [place] [phone] Jul, Non-recurrent acute suppurat francine otitis media of left ear without spontaneous rupture of tympanic membrane H66.002 [facility] [address] [id number] [address] [place] [phone] Jul, Neuropathy G62.9 [facility] [address] [id number] [address] [place] [phone] Jun, [facility] [address] [id number] [address] [place] [id number] Jun, [facility] [address] [facility] [id number] [address] [place] [address] Jun, Neuropathy G62.9 [facility] [address] [facility] [id number] [address] [place] [address] Jun, [facility] [address] [facility] [id number] [address] [place] [phone] Jun, [facility] [address] [id number] [address] [place] [phone] Jun, Lumbar neuritis M54.16 [facility] [address] [id number] [address] [place] [address] May, Neuropathy G62.9 [facility] [address] [facility] [id number] [address] [place] [phone] May, [facility] [address] [facility] [id number] [address] [place] [address] May, Neuropathy G62.9 and Hyperte nsion, benign I10 [facility] [address] [facility] [id number] [address] [place] [phone] 09 Apr, 2018 Polyneuropathy G62.9 and Hyp ertension, benign I10 [facility] [address] [facility] [id number] [address] [place] [phone] 17 Mar, 2018 Chronic pain syndrome G89.4 and Hypertension, benign I10 [facility] [address] [place] [id number] [address] [place] [phone] 11 Mar, 2018 Polyneuropathy G62.9 and Hyp ertension, benign I10 [facility] [address] [place] [id number] [address] [place] [phone] 27 Feb, 2018 [facility] [address] [place] [id number] [address] [place] [phone] Feb, Hypertension, benign I10 [facility] [address] [place] [id number] [place] [address] Feb, Hypertension, benign I10 ; P olyneuropathy G62.9 and Primary insomnia F51.01 [facility] [address] [place] [id number] [address] [place] [address] Jan, Hypertension, benign I10 and Polyneuropathy G62.9 [facility] [address] [place] [id number] [address] [place] [address] Jan, Hypertension, benign I10 and Neuropathy G62.9 [facility] [address] [place] [id number] [address] [place] [id number] Jan, [facility] [address] [facility] [id number] [address] [place] [address] Dec, Polyneuropathy G62.9 [facility] [address] [place] [id number] [address] [place] [address] Dec, Mood disorder F39 [facility] [address] [place] [id number] [address] [place] [phone] November, Polyneuropathy G62.9 [facility] [address] [facility] [id number] [address] [place] [phone] November, Medicare annual wellness vis it, initial Z00.00 [facility] [address] [facility] [id number] [address] [place] [phone] November, Mood disorder F39 [facility] [address] [facility] [id number] [address] [place] [phone] Oct, Polyneuropathy G62.9 [facility] [address] [facility] [id number] [address] [place] [address] Oct, [facility] [address] [facility] [id number] [address] [place] [phone] Oct, [facility] [address] [facility] [id number] [address] [place] [phone] Oct, Mood disorder F39 ; Attentio n to urostomy Z43.6 ; Chronic pain syndrome G89.4 and Polyneuropathy G62.9 [facility] [address] [facility] [id number] [address] [place] [address] Sep, Polyneuropathy G62.9 [facility] [address] [facility] [id number] [address] [place] [address] Sep, [facility] [address] [facility] [id number] [address] [place] [id number] Sep, Polyneuropathy G62.9 [facility] [address] [facility] [id number] [address] [place] [phone] Aug, Polyneuropathy G62.9 [facility] [address] [facility] [id number] [address] [place] [phone] Aug, Malignant neoplasm of colon, unspecified part of colon C18.9 and Polyneuropathy G62.9 [facility] [address] [facility] [id number] [address] [place] [phone] Aug, Neuropathy G62.9 and Polyneu ropathy G62.9 [facility] [address] [facility] [id number] [address] [place] [id number] Jul, Encounter for drug screening Z02.83 [facility] [address] [facility] [id number] [address] [place] [address] Jul, Polyneuropathy G62.9 [facility] [address] [facility] [id number] [address] [place] [id number] Jul, [facility] [address] [facility] [id number] [address] [place] [phone] Jul, Neuropathy G62.9 and Anxiety F41.9 [facility] [address] [facility] [id number] [address] [place] [phone] Jul, [facility] [address] [facility] [id number] [address] [place] [phone] Jul, [facility] [address] [facility] [id number] [address] [place] [id number] Jul, [facility] [address] [facility] [id number] [address] [place] [phone] Jul, Polyneuropathy G62.9 [facility] [address] [facility] [id number] [address] [place] [phone] Jul, [facility] [address] [facility] [id number] [address] [place] [phone] Jun, [facility] [address] [facility] [id number] [address] [place] [phone] Jun, [facility] [address] [facility] [id number] [address] [place] [phone] Jun, [facility] [address] [id number] [address] [address] 07 Jun, 2017 Encounter for dental examina tion Z01.20 [facility] [address] [facility] [id number] [address] [place] [address] Jun, Polyneuropathy G62.9 and Anx iety F41.9 [facility] [address] [facility] [id number] [address] [place] [address] Jun, [facility] [address] [id number] [address] [place] [address] May, Dental examination Z01.20 [facility] [address] [place] [id number] [address] [place] [address] May, Polyneuropathy G62.9 [facility] [address] [facility] [id number] [address] [place] [address] Apr, Polyneuropathy G62.9 [facility] [address] [place] [id number] [address] [place] [address] Apr, Polyneuropathy G62.9 [facility] [address] [place] [id number] [address] [place] [address] Apr, Hypertension, benign I10 ; P olyneuropathy G62.9 and Anxiety F41.9 [facility] [address] [place] [id number] [address] [place] [address] Apr, Primary insomnia F51.01 and Polyneuropathy G62.9 [facility] [address] [place] [id number] [address] [place] [address] Apr, Primary insomnia F51.01 and Polyneuropathy G62.9 [facility] [address] [place] [id number] [address] [place] [address] Mar, Primary insomnia F51.01 [facility] [address] [facility] [id number] [address] [place] [address] Mar, [facility] [address] [place] [id number] [address] [place] [address] Mar, Polyneuropathy G62.9 [facility] [address] [facility] [id number] [address] [place] [phone] Feb, Primary insomnia F51.01 [facility] [address] [id number] [address] [place] [address], [place] [address] Feb, [facility] [address] [id number] [address] [place] [address], [place] [address] Feb, [facility] [address] [id number] [address] [place] [address], [place] [address] Feb, Polyneuropathy G62.9 [facility] [address] [id number] [address] [place] [address], [place] [address] Feb, Primary insomnia F51.01 [facility] [address] [id number] [address] [place] [address], [place] [address] Jan, [facility] [address] [id number] [address] [place] [phone] Jan, [facility] [address] [id number] [address] [place] [phone] Dec, [facility] [address] [id number] [address] [place] [phone] Dec, Primary insomnia F51.01 [facility] [address] [id number] [address] [place] [address], [place] [address] Dec, Primary insomnia F51.01 [facility] [address] [id number] [address] [place] [phone] Dec, [facility] [address] [id number] [address] [place] [address] Dec, [facility] [address] [id number] [address] [place] [address] Dec, [facility] [address] [id number] [address] [place] [address] Dec, [facility] [address] [id number] [address] [place] [address] November, Primary insomnia F51.01 and Polyneuropathy G62.9 [facility] [address] [id number] [address] [place] [phone] November, [facility] [address] [id number] [address] [place] [address] November, Abdominal pain, left lower q uadrant R10.32 [facility] [address] [id number] [address] [place] [address] November, [facility] [address] [id number] [address] [place] [address] Oct, [facility] [address] [id number] [address] [place] [address] Oct, Abdominal pain, left lower q uadrant R10.32 ; H/O malignant carcinoid tumor of rectum Z85.040 and Neuropathy G62.9 [facility] [address] [id number] [address] [place] [address] Oct, [facility] [address] [id number] [address] [place] [address] Sep, [facility] [id number] [place] [id number] Sep, [facility] [address] [id number] [address] [place] [address] Sep, [facility] [address] [id number] [address] [place] [phone] Aug, [facility] [address] [id number] [address] [place] [address] Aug, [facility] [address] [id number] [address] [place] [address] Aug, Abdominal pain, left lower q uadrant R10.32 ; Neuropathy G62.9 and Anxiety F41.9 [facility] [address] [place] [address] Jul, [facility] [address] [id number] [address] [place] [address] Jul, [facility] [address] [id number] [address] [place] [phone] Jul, [facility] [address] [id number] [address] [place] [address] Jul, [facility] [address] [id number] [address] [place] [address] Jul, [facility] [address] [id number] [address] [place] [phone] Jun, [facility] [address] [id number] [address] [place] [phone] May, [facility] [address] [id number] [address] [place] [phone] May, [facility] [address] [id number] [address] [place] [id number] Apr, [facility] [address] [id number] [address] [place] [address] Apr, Muscle spasms of both lower extremities M62.838 and Cellulitis, unspecified cellulitis site L03.90 [facility] [address] [id number] [address] [place] [phone] Apr, [facility] [address] [id number] [address] [place] [address] 23 Mar, 2016 Generalized abdominal pain R 10.84 [facility] [address] [id number] [address] [place] [phone] 20 Mar, 2016 [facility] [address] [id number] [address] [place] [phone] 14 Mar, 2016 [facility] [address] [id number] [address] [place] [id number] 14 Mar, 2016 [facility] [address] [id number] [address] [place] [id number] 13 Mar, 2016 [facility] [address] [id number] [address] [place] [address] Mar, [facility] [address] [id number] [address] [place] [address], [place] [address] Mar, [facility] [address] [id number] [address] [place] [id number] Mar, [facility] [address] [id number] [address] [place] [phone] Feb, Other specified diseases of anus and rectum K62.89 [facility] [address] [id number] [address] [place] [phone] Feb, [facility] [address] [id number] [address] [place] [address] Feb, Dizziness R42 [facility] [address] [id number] [address] [place] [address] Feb, [facility] [address] [id number] [address] [place] [phone] Jan, Polyneuropathy G62.9 [facility] [address] [id number] [address] [place] [phone] Jan, Other specified diseases of anus and rectum K62.89 [facility] [address] [id number] [address] [place] [phone] Jan, [facility] [address] [id number] [address] [place] [phone] Jan, [facility] [address] [id number] [address] [place] [phone] Jan, [facility] [address] [id number] [address] [place] [phone] Jan, Dizziness R42 [facility] [address] [id number] [address] [place] [phone] Dec, [facility] [address] [id number] [address] [place] [phone] Dec, [facility] [address] [id number] [address] [place] [phone] Dec, [facility] [address] [id number] [address] [place] [address] Dec, Dizziness R42 [facility] [address] [facility] [id number] [address] [place] [phone] November, [facility] [address] [id number] [address] [place] [phone] Oct, [facility] [address] [id number] [address] [place] [phone] Oct, [facility] [address] [id number] [address] [place] [address], [place] [phone] Oct, [facility] [address] [facility] [id number] [address] [place] [id number] Oct, [facility] [address] [facility] [id number] [address] [place] [id number] Sep, [facility] [address] [facility] [id number] [address] [place] [phone] Sep, Primary insomnia F51.01 [facility] [address] [facility] [id number] [address] [place] [id number] Sep, Primary insomnia F51.01 [facility] [address] [facility] [id number] [address] [place] [phone] Sep, [facility] [address] [facility] [id number] [address] [place] [phone] Aug, [facility] [address] [facility] [id number] [address] [place] [phone] Aug, [facility] [address] [facility] [id number] [address] [place] [id number] Aug, Primary insomnia F51.01 ; Mo od disorder F39 ; Nausea and vomiting, unspecified intactability, vomiting of unspecified type R11.2 and Diarrhea R19.7 [facility] [address] [id number] [address] [place] [phone] 15 Aug, 2015 [facility] [address] [facility] [id number] [address] [place] [phone] 05 Aug, 2015 Folliculitis L73.9 [facility] [address] [facility] [id number] [address] [place] [phone] Aug, [facility] [address] [facility] [id number] [address] [place] [id number] Aug, [facility] [address] [facility] [id number] [address] [place] [id number] Jul, Folliculitis L73.9 [facility] [address] [facility] [id number] [address] [place] [address] [id number] Jul, [facility] [address] [facility] [id number] [address] [place] [address] Jun, Folliculitis L73.9 [facility] [address] [facility] [id number] [address] [place] [address] Jun, [facility] [address] [facility] [id number] [address] [place] [address] May, Polyneuropathy G62.9 [facility] [address] [facility] [id number] [address] [place] [address] May, Other specified diseases of anus and rectum K62.89 [facility] [address] [facility] [id number] [address] [place] [id number] May, [facility] [address] [facility] [id number] [address] [place] [address] May, Primary insomnia F51.01 [facility] [address] [facility] [id number] [address] [place] [address] May, [facility] [address] [facility] [id number] [address] [place] [address] May, [facility] [address] [id number] [address] [place] [address] Apr, Other specified diseases of anus and rectum K62.89 ; Chronic fatigue R53.82 ; Urinary tract infection, site not specified N39.0 and Enterococcus as the cause of diseases classified elsewhere B95.2 [facility] [address] [id number] [address] [place] [id number] 16 Apr, 2015 [facility] [address] [id number] [address] [place] [id number] 15 Apr, 2015 [facility] [address] [id number] [address] [place] [address] Apr, 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 [facility] [address] [id number] [address] [place] [id number] 05 Apr, 2015 [facility] [address] [id number] [address] [place] [phone] 26 Mar, 2015 [facility] [address] [id number] [address] [place] [phone] 23 Mar, 2015 [facility] [address] [id number] [address] [place] [id number] 17 Mar, 2015 [facility] [address] [id number] [address] [place] [phone] 14 Mar, 2015 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 [facility] [address] [id number] [address] [place] [id number] 12 Mar, 2015 [facility] [address] [id number] [address] [place] [id number] 11 Mar, 2015 [facility] [address] [id number] [address] [place] [id number] 11 Mar, 2015 [facility] [address] [id number] [address] [place] [phone] 10 Mar, 2015 [facility] [address] [id number] [address] [place] [phone] Feb, [facility] [address] [id number] [address] [place] [phone] Feb, [facility] [address] [id number] [address] [place] [id number] Feb, [facility] [address] [id number] [address] [place] [address] Jan, [facility] [address] [id number] [address] [place] [address] Jan, Nausea 787.02 and Neuropathy 355.9 [facility] [address] [id number] [address] [place] [phone] Jan, [facility] [address] [id number] [address] [place] [id number] Jan, [facility] [address] [id number] [address] [place] [id number] Jan, [facility] [address] [id number] [address] [place] [id number] Jan, Dental examination V72.2 [facility] [address] [id number] [address] [place] [address] Jan, [facility] [address] [id number] [address] [place] [id number] Dec, [facility] [address] [id number] [address] [place] [phone] Dec, [facility] [address] [id number] [address] [place] [phone] Dec, Neuropathy 355.9 [facility] [address] [id number] [address] [place] [phone] November, [facility] [address] [id number] [address] [place] [phone] November, [facility] [address] [id number] [address] [place] [address] November, [facility] [address] [id number] [address] [place] [address], [place] [address] Oct, [facility] [address] [id number] [address] [place] [address], [place] [address] Oct, [facility] [address] [id number] [address] [place] [address], [place] [address] Sep, [facility] [address] [id number] [address] [place] [address], [place] [address] Sep, [facility] [address] [id number] [address] [place] [address], [place] [address] Sep, [facility] [address] [id number] [address] [place] [address], [place] [address] Sep, [facility] [address] [id number] [address] [place] [address], [place] [address] Sep, [facility] [address] [id number] [address] [place] [address], [place] [address] Sep, [facility] [address] [id number] [address] [place] [address], [place] [address] Sep, [facility] [address] [id number] [address] [place] [address], [place] [address] Sep, [facility] [address] [id number] [address] [place] [address], [place] [address] Aug, [facility] [address] [id number] [address] [place] [id number] Aug, [facility] [address] [id number] [address] [place] [address], [place] [address] Aug, [facility] [address] [id number] [address] [place] [address], [place] [address] Aug, [facility] [address] [id number] [address] [place] [address], [place] [address] Aug, [facility] [address] [id number] [address] [place] [address], [place] [address] 02 Aug, 2014 [facility] [address] [id number] [address] [place] [address], [place] [address] Aug, 2014 [facility] [address] [id number] [address] [place] [address], [place] [address] Aug, [facility] [address] [id number] [address] [place] [address], [place] [address] Jul, [facility] [address] [id number] [address] [place] [address], [place] [address] Jul, [facility] [address] [id number] [address] [place] [address], [place] [address] Jun, [facility] [address] [id number] [address] [place] [address], [place] [address] Jun, [facility] [address] [id number] [address] [place] [address], [place] [address] Jun, [facility] [address] [id number] [address] [place] [address], [place] [address] Jun, [facility] [address] [id number] [address] [place] [address], [place] [address] Jun, [facility] [address] [id number] [address] [place] [address], [place] [address] Jun, [facility] [address] [id number] [address] [place] [address], [place] [address] Jun, [facility] [address] [id number] [address] [place] [address], [place] [address] Jun, [facility] [address] [id number] [address] [place] [address], [place] [address] Jun, [facility] [address] [id number] [address] [place] [address], [place] [address] Jun, [facility] [address] [id number] [address] [place] [address], [place] [address] Jun, [facility] [address] [id number] [address] [place] [address], [place] [address] May, [facility] [address] [id number] [address] [place] [address], [place] [address] May, [facility] [address] [id number] [address] [place] [address], [place] [address] May, [facility] [address] [id number] [address] [place] [address], [place] [address] May, [facility] [address] [id number] [address] [place] [address], [place] [address] May, [facility] [address] [id number] [address] [place] [address], [place] [address] May, [facility] [address] [id number] [address] [place] [address], [place] [address] May, [facility] [address] [id number] [address] [place] [address], [place] [address] May, [facility] [address] [id number] [address] [place] [address], [place] [address] May, [facility] [address] [id number] [address] [place] [address], [place] [address] Apr, [facility] [address] [id number] [address] [place] [address], [place] [address] Apr, [facility] [address] [id number] [address] [place] [address] Apr, [facility] [address] [id number] [address] [place] [address], [place] [address] Apr, [facility] [address] [id number] [address] [place] [address], [place] [address] Apr, [facility] [address] [id number] [address] [place] [address], [place] [address] Mar, [facility] [address] [id number] [address] [place] [address], [place] [address] Mar, [facility] [address] [id number] [facility] [place] [address] Feb, [facility] [address] [id number] [facility] [place] [address] Feb, [facility] [address] [id number] [facility] [place] [address] Feb, [facility] [address] [id number] [address] [place] [address], [place] [address] Feb, [facility] [address] [id number] [address] [place] [address], [place] [address] Feb, [facility] [address] [id number] [address] [place] [address], [place] [address] Feb, [facility] [address] [id number] [address] [place] [address], [place] [address] Jan, [facility] [address] [id number] [address] [place] [address], [place] [address] Jan, [facility] [address] [id number] [address] [place] [address], [place] [address] Jan, [facility] [address] [id number] [address] [place] [address], [place] [address] Jan, [facility] [address] [id number] [address] [place] [address], [place] [address] Jan, [facility] [address] [id number] [address] [place] [address], [place] [address] Jan, [facility] [address] [id number] [address] [place] [address], [place] [address] Jan, [facility] [address] [id number] [address] [place] [address], [place] [address] Jan, [facility] [address] [id number] [address] [place] [address], [place] [address] Jan, [facility] [address] [id number] [facility] [place] [address] Jan, [facility] [address] [id number] [facility] [place] [address] Jan, [facility] [address] [id number] [facility] [place] [address] Dec, [facility] [address] [id number] [address] [place] [address], [place] [address] Dec, [facility] [address] [id number] [address] [place] [address], [place] [address] Dec, [facility] [address] [id number] [address] [place] [address], [place] [address] Dec, [facility] [address] [id number] [address] [place] [address], [place] [address] Dec, [facility] [address] [id number] [address] [place] [address], [place] [address] Dec, [facility] [address] [id number] [address] [place] [address], [place] [address] November, [facility] [address] [id number] [address] [place] [address], [place] [address] November, [facility] [address] [id number] [address] [place] [address], [place] [address] November, [facility] [address] [id number] [address] [place] [address], [place] [address] November, [facility] [address] [id number] [address] [place] [address], [place] [address] November, [facility] [address] [id number] [address] [place] [address], [place] [address] November, [facility] [address] [id number] [address] [place] [address], [place] [address] Oct, [facility] [address] [id number] [address] [place] [address], [place] [address] 30 Oct, 2013 [facility] [address] [id number] [address] [place] [address], [place] [address] Oct, [facility] [address] [id number] [address] [place] [address], [place] [address] Oct, [facility] [address] [id number] [address] [place] [address], [place] [address] Sep, [facility] [address] [id number] [address] [place] [address], [place] [address] Sep, [facility] [address] [id number] [address] [place] [address], [place] [address] Sep, [facility] [address] [id number] [address] [place] [address], [place] [address] Sep, [facility] [address] [id number] [address] [place] [address], [place] [address] Sep, [facility] [address] [id number] [address] [place] [address], [place] [address] Aug, [facility] [address] [id number] [address] [place] [address], [place] [address] Aug, [facility] [address] [id number] [address] [place] [address], [place] [address] Aug, [facility] [address] [id number] [address] [place] [address], [place] [address] Aug, [facility] [address] [id number] [address] [place] [address], [place] [address] Aug, [facility] [address] [place] [id number] May, [facility] [address] [id number] [address] [place] [address], [place] [address] May, [facility] [address] [id number] [address] [place] [address], [place] [address] May, [facility] [address] [id number] [address] [place] [address], [place] [address] May, [facility] [address] [id number] [address] [place] [address], [place] [address] May, [facility] [address] [id number] [address] [place] [address], [place] [address] Apr, [facility] [address] [id number] [address] [place] [address], [place] [address] Apr, [facility] [address] [id number] [address] [place] [address], [place] [address] Apr, [facility] [address] [id number] [address] [place] [address], [place] [address] Apr, [facility] [address] [id number] [address] [place] [address], [place] [address] Apr, [facility] [address] [id number] [address] [place] [address], [place] [address] Apr, [facility] [address] [id number] [address] [place] [address], [place] [address] Apr, [facility] [address] [id number] [address] [place] [address], [place] [address] 28 Mar, 2013 [facility] [address] [id number] [address] [place] [address], [place] [address] Mar, [facility] [address] [id number] [address] [place] [address], [place] [address] 24 Mar, 2013 [facility] [address] [id number] [address] [place] [address], [place] [address] 16 Mar, 2013 [facility] [address] [id number] [address] [place] [address], [place] [address] 12 Mar, 2013 [facility] [address] [id number] [address] [place] [address], [place] [address] 06 Mar, 2013 [facility] [address] [id number] [address] [place] [address], [place] [address] Feb, [facility] [address] [id number] [address] [place] [address], [place] [address] Feb, [facility] [address] [id number] [address] [place] [address], [place] [address] Feb, [facility] [address] [id number] [address] [place] [address], [place] [address] Feb, [facility] [address] [id number] [address] [place] [address], [place] [address] Feb, [facility] [address] [id number] [address] [place] [address], [place] [address] Feb, [facility] [address] [id number] [address] [place] [address], [place] [address] Jan, [facility] [address] [id number] [address] [place] [address], [place] [address] Dec, [facility] [address] [id number] [address] [place] [address], [place] [address] Dec, [facility] [address] [id number] [address] [place] [address], [place] [phone] Dec, [facility] [address] [id number] [address] [place] [address], [place] [address] Dec, [facility] [address] [id number] [address] [place] [address], [place] [address] Dec, [facility] [address] [id number] [address] [place] [address], [place] [address] Dec, [facility] [address] [id number] [address] [place] [address], [place] [phone] 17 Dec, 2012 [facility] [address] [id number] [address] [place] [address], [place] [id number] Dec, [facility] [address] [id number] [address] [place] [address], [place] [address] Dec, [facility] [address] [id number] [address] [place] [phone] November, [facility] [address] [id number] [address] [place] [phone] November, [facility] [address] [id number] [address] [place] [phone] Oct, [facility] [address] [id number] [address] [place] [phone] Sep, [facility] [address] [id number] [address] [place] [phone] Sep, [facility] [address] [id number] [address] [place] [phone] Sep, [facility] [address] [id number] [address] [place] [phone] Sep, [facility] [address] [id number] [address] [place] [phone] Aug, [facility] [address] [id number] [address] [place] [phone] Aug, [facility] [address] [id number] [address] [place] [phone] Jul, [facility] [address] [id number] [address] [place] [phone] Jul, [facility] [address] [id number] [address] [place] [phone] Jul, [facility] [address] [id number] [address] [place] [phone] Sep, [facility] [address] [id number] [address] [place] [phone] 17 Sep, 2011 [facility] [address] [id number] [address] [place] [id number] 10 Sep, 2011 IMMUNIZATIONS No Known Immunizations SOCIAL HISTORY Never Assessed REASON FOR VISIT Hypertension f/u Beatris LIRA PLAN OF CARE VITAL SIGNS Height 67 in 2018-09-21 Weight 206.3 lbs 2018-09-21 Temperature 97.2 degrees Fahrenheit 2018-09-21 Heart Rate 72 bpm 2018-09-21 Respiratory Rate 20 2018-09-21 BMI 32.31 kg/m2 2018-09-21 Blood pressure systolic 142 mmHg 2018-09-21 Blood pressure diastolic 88 mmHg 2018-09-21 MEDICATIONS Medication Instructions Dosage Frequency Start Date End Date Duration S tatus Wheelchair 1 as directed Dec, Ac tive Acyclovir 5 % Externally Five times a day 1 application to affected area Dec, Active Amlodipine Besylate 10 mg Orally Once a day 1 tablet 24h Feb, 8 Active Blood Pressure Monitor 1 as directed Feb, Active Levaquin 750 MG Orally Once a day 1 tablet 24h Jul, 10 day(s) Not-Taking Oxycodone HCl 30 MG Orally 2 times a day 1 tablet as needed 12h Aug, 28 days Active Gabapentin 600 mg 1 tablet 8h Aug, Active Zoloft 100 mg Orally Once a day 1 tablet 24h Active PredniSONE 20 MG Orally Once a day 2 tablets 24h Jun, 5 days Not-Taking Promethazine HCl 25 Orally 4 times a day 1 tablet 6h Active Percocet 10-325 MG Orally every 4 hrs 1 tablet 4h Aug, 28 days Active Acyclovir 400 mg Orally Twice a day 1 tablet 12h Feb, Active Cyclobenzaprine HCl 10 MG Orally 2 times a day 1 tablet as needed 1 2h Jun, Not-Taking Lyrica 150 MG Orally 3 times a day 1 capsule 8h 08 Feb, 2017 28 days Active Incontinence Brief Large 1 as directed Aug, Active RESULTS No Results PROCEDURES No Known [...] bowel obstruction, Dehydration -[facility] 01/01/17 Hospitalization History [facility]- UTI/Sepsis 01/18/2018 Hospitalization History [facility] - infection 4 days 05/2018
--- OUTSIDE RECORDS SUMMARY | 2020-01-14 23:08 | XMS REPORT ---
Author Author Melvin BENTLEY Organization [facility] Address [address] [place] [address] Care Team Providers Care Manager Welding Name Role Phone LINDA BENTLEY Unavailable PROBLEMS Type Condition ICD9-CM Code NYZ75-RT Code Onset Dates Condition S tatus SNOMED Code Problem Incontinence of feces, unspecified fecal incontinence type R15.9 Active 39969949 Problem Primary insomnia F51.01 Active 193 574324 Problem Hydronephrosis with ureteral stricture, not else where classified N13.1 Active 59999844 Problem Chronic fatigue, unspecified R53.82 A ctive 255223393 Problem Hypertension, benign I10 Active 46951665 Problem Mood disorder F39 Active 330351 05 Problem Neuropathy G62.9 Active 989354085 Problem Chronic pain syndrome G89.4 Active 480623854 Problem Abdominal pain, left lower quadrant R10.32 Active 795025997 Problem 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 Active 820550795 Problem 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 763219370 Problem Anxiety F41.9 Active 67816812 Problem Polyneuropathy G62.9 Active 89014 000 Problem Malignant neoplasm of colon, unspecified part of colon C18.9 Active 601502554 Problem Attention to urostomy Z43.6 Active 703139011 ALLERGIES No Information ENCOUNTERS Encounter Location Date Diagnosis [facility] [address] [facility] [id number] [address] [place] [id number] Dec, [facility] [address] [facility] [id number] [address] [place] [id number] Dec, Encounter for Medicare annua l wellness exam Z00.00 and Neuropathy G62.9 [facility] [address] [facility] [id number] [address] [place] [id number] November, [facility] [address] [facility] [id number] [address] [place] [address] November, Encounter for Medicare annua l wellness exam Z00.00 ; 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 ; Mood disorder F39 ; Chronic fatigue, unspecified R53.82 and Neuropathy G62.9 [facility] [address] [id number] [address] [place] [address] November, Neuropathy G62.9 [facility] [address] [id number] [address] [place] [id number] Oct, Neuropathy G62.9 [facility] [address] [id number] [address] [place] [id number] Oct, Hypertension, benign I10 and Anxiety F41.9 [facility] [address] [id number] [address] [place] [phone] Oct, [facility] [address] [id number] [address] [place] [phone] Oct, [facility] [address] [id number] [address] [place] [phone] Oct, [facility] [address] [id number] [address] [place] [address] Oct, Neuropathy G62.9 [facility] [address] [id number] [address] [place] [id number] Sep, [facility] [address] [id number] [address] [place] [address] Sep, Neuropathy G62.9 [facility] [address] [id number] [address] [place] [phone] Sep, [facility] [address] [facility] [id number] [address] [place] [address] Sep, H/O malignant carcinoid tumo r of rectum Z85.040 and Primary insomnia F51.01 [facility] [address] [id number] [address] [place] [phone] Aug, [facility] [address] [id number] [address] [place] [phone] Aug, Neuropathy G62.9 [facility] [address] [id number] [address] [place] [address] Aug, [facility] [address] [facility] [id number] [address] [place] [id number] Jul, Non-recurrent acute suppurat francine otitis media of left ear without spontaneous rupture of tympanic membrane H66.002 [facility] [address] [id number] [address] [place] [phone] Jul, Neuropathy G62.9 [facility] [address] [id number] [address] [place] [id number] Jun, [facility] [address] [facility] [id number] [address] [place] [id number] Jun, [facility] [address] [facility] [id number] [address] [place] [address] Jun, Neuropathy G62.9 [facility] [address] [id number] [address] [place] [id number] Jun, [facility] [address] [facility] [id number] [address] [place] [id number] Jun, [facility] [address] [facility] [id number] [address] [place] [address] Jun, Lumbar neuritis M54.16 [facility] [address] [id number] [address] [place] [address] May, Neuropathy G62.9 [facility] [address] [id number] [address] [place] [address] May, [facility] [address] [facility] [id number] [address] [place] [address] May, Neuropathy G62.9 and Hyperte nsion, benign I10 [facility] [address] [id number] [address] [place] [address] 09 Apr, 2018 Polyneuropathy G62.9 and Hyp ertension, benign I10 [facility] [address] [place] [id number] [address] [place] [phone] 17 Mar, 2018 Chronic pain syndrome G89.4 and Hypertension, benign I10 [facility] [address] [place] [id number] [address] [place] [id number] 11 Mar, 2018 Polyneuropathy G62.9 and Hyp ertension, benign I10 [facility] [address] [place] [id number] [address] [place] [phone] Feb, [facility] [address] [place] [id number] [place] [address] Feb, Hypertension, benign I10 [facility] [address] [place] [id number] [place] [address] Feb, Hypertension, benign I10 ; P olyneuropathy G62.9 and Primary insomnia F51.01 [facility] [address] [place] [id number] [address] [place] [address] 17 Jan, 2018 Hypertension, benign I10 and Polyneuropathy G62.9 [facility] [address] [place] [id number] [address] [place] [address] Jan, Hypertension, benign I10 and Neuropathy G62.9 [facility] [address] [place] [place] [id number] [address] [place] [address] Jan, [facility] [address] [place] [place] [id number] [address] [place] [address] Dec, Polyneuropathy G62.9 [facility] [address] [place] [id number] [address] [place] [address] Dec, Mood disorder F39 [facility] [address] [place] [id number] [address] [place] [address] November, Polyneuropathy G62.9 [facility] [address] [place] [id number] [address] [place] [id number] November, Medicare annual wellness vis it, initial Z00.00 [facility] [address] [facility] [id number] [address] [place] [address] November, Mood disorder F39 [facility] [address] [facility] [id number] [address] [place] [address] Oct, Polyneuropathy G62.9 [facility] [address] [place] [id number] [address] [place] [phone] Oct, [facility] [address] [facility] [id number] [address] [place] [address] Oct, [facility] [address] [place] [id number] [address] [place] [address] Oct, Mood disorder F39 ; Attentio n to urostomy Z43.6 ; Chronic pain syndrome G89.4 and Polyneuropathy G62.9 [facility] [address] [facility] [id number] [address] [place] [address] Sep, Polyneuropathy G62.9 [facility] [address] [facility] [id number] [address] [place] [id number] Sep, [facility] [address] [place] [id number] [address] [place] [id number] Sep, Polyneuropathy G62.9 [facility] [address] [place] [id number] [address] [place] [id number] Aug, Polyneuropathy G62.9 [facility] [address] [facility] [id number] [address] [place] [id number] Aug, Malignant neoplasm of colon, unspecified part of colon C18.9 and Polyneuropathy G62.9 [facility] [address] [facility] [id number] [address] [place] [address] Aug, Neuropathy G62.9 and Polyneu ropathy G62.9 [facility] [address] [facility] [id number] [address] [place] [address] Jul, Encounter for drug screening Z02.83 [facility] [address] [id number] [address] [place] [address] Jul, Polyneuropathy G62.9 [facility] [address] [id number] [address] [place] [id number] Jul, [facility] [address] [facility] [id number] [address] [place] [address] Jul, Neuropathy G62.9 and Anxiety F41.9 [facility] [address] [id number] [address] [place] [id number] Jul, [facility] [address] [id number] [address] [place] [id number] Jul, [facility] [address] [facility] [id number] [address] [place] [address] Jul, [facility] [address] [facility] [id number] [address] [place] [address] Jul, Polyneuropathy G62.9 [facility] [address] [facility] [id number] [address] [place] [address] Jul, [facility] [address] [facility] [id number] [address] [place] [id number] Jun, [facility] [address] [facility] [id number] [address] [place] [phone] Jun, [facility] [address] [facility] [id number] [address] [place] [id number] Jun, [facility] [address] [id number] [place] [address] 07 Jun, 2017 Encounter for dental examina tion Z01.20 [facility] [address] [facility] [id number] [address] [place] [address] Jun, Polyneuropathy G62.9 and Anx iety F41.9 [facility] [id number] [place] [address] Jun, [facility] [address] [place] [address] [place] [address] May, Dental examination Z01.20 [facility] [id number] [place] [address] May, Polyneuropathy G62.9 [facility] [id number] [place] [address] Apr, Polyneuropathy G62.9 [facility] [id number] [place] [address] Apr, Polyneuropathy G62.9 [facility] [id number] [place] [address] Apr, Hypertension, benign I10 ; P olyneuropathy G62.9 and Anxiety F41.9 [facility] [id number] [place] [address] Apr, Primary insomnia F51.01 and Polyneuropathy G62.9 [facility] [address] [place] [id number] [address] [place] [address] Apr, Primary insomnia F51.01 and Polyneuropathy G62.9 [facility] [id number] [place] [address] Mar, Primary insomnia F51.01 [facility] [address] [place] [id number] [address] [place] [id number] Mar, [facility] [address] [place] [place] [id number] [address] [place] [address] Mar, Polyneuropathy G62.9 [facility] [address] [place] [id number] [address] [place] [id number] Feb, Primary insomnia F51.01 [facility] [address] [place] [id number] [address] [place] [id number] Feb, [facility] [address] [id number] [address] [place] [address], [place] [address] Feb, [facility] [address] [id number] [address] [place] [address], [place] [address] Feb, Polyneuropathy G62.9 [facility] [address] [id number] [address] [place] [address], [place] [address] Feb, Primary insomnia F51.01 [facility] [address] [id number] [address] [place] [address], [place] [address] Jan, [facility] [address] [id number] [address] [place] [address], [place] [address] Jan, [facility] [address] [id number] [address] [place] [address], [place] [address] Dec, [facility] [address] [id number] [address] [place] [address], [place] [address] Dec, Primary insomnia F51.01 [facility] [address] [id number] [address] [place] [address], [place] [address] Dec, Primary insomnia F51.01 [facility] [address] [id number] [address] [place] [address], [place] [address] Dec, [facility] [address] [id number] [address] [place] [address], [place] [address] Dec, [facility] [address] [id number] [address] [place] [address] Dec, [facility] [address] [id number] [address] [place] [address], [place] [address] Dec, [facility] [address] [id number] [address] [place] [address], [place] [address] November, Primary insomnia F51.01 and Polyneuropathy G62.9 [facility] [address] [id number] [address] [place] [address], [place] [address] November, [facility] [address] [id number] [address] [place] [address] November, Abdominal pain, left lower q uadrant R10.32 [facility] [address] [facility] [id number] [address] [place] [address] November, [facility] [address] [facility] [id number] [address] [place] [phone] Oct, [facility] [address] [facility] [id number] [address] [place] [address] Oct, Abdominal pain, left lower q uadrant R10.32 ; H/O malignant carcinoid tumor of rectum Z85.040 and Neuropathy G62.9 [facility] [address] [facility] [id number] [address] [place] [address] Oct, [facility] [address] [facility] [id number] [address] [place] [address] Sep, [facility] [id number] [place] [id number] Sep, [facility] [address] [facility] [id number] [address] [place] [address] Sep, [facility] [address] [facility] [id number] [address] [place] [address] Aug, [facility] [address] [facility] [id number] [address] [place] [address] Aug, [facility] [address] [facility] [id number] [address] [place] [address] Aug, Abdominal pain, left lower q uadrant R10.32 ; Neuropathy G62.9 and Anxiety F41.9 [facility] [address] [place] [address] Jul, [facility] [address] [facility] [id number] [address] [place] [address] Jul, [facility] [address] [facility] [id number] [address] [place] [address] Jul, [facility] [address] [id number] [address] [place] [id number] Jul, [facility] [address] [id number] [address] [place] [address] Jul, [facility] [address] [id number] [address] [place] [address] Jun, [facility] [address] [id number] [address] [place] [address] May, [facility] [address] [id number] [address] [place] [address] May, [facility] [address] [id number] [address] [place] [address] Apr, [facility] [address] [id number] [address] [place] [address] Apr, Muscle spasms of both lower extremities M62.838 and Cellulitis, unspecified cellulitis site L03.90 [facility] [address] [id number] [address] [place] [address] Apr, [facility] [address] [id number] [address] [place] [address] 23 Mar, 2016 Generalized abdominal pain R 10.84 [facility] [address] [id number] [address] [place] [address] 20 Mar, 2016 [facility] [address] [id number] [address] [place] [id number] 14 Mar, 2016 [facility] [address] [id number] [address] [place] [address] 14 Mar, 2016 [facility] [address] [id number] [address] [place] [address] 13 Mar, 2016 [facility] [address] [id number] [address] [place] [address] 12 Mar, 2016 [facility] [address] [id number] [address] [place] [id number] Mar, [facility] [address] [id number] [address] [place] [id number] Mar, [facility] [address] [id number] [address] [place] [id number] Feb, Other specified diseases of anus and rectum K62.89 [facility] [address] [id number] [address] [place] [address] Feb, [facility] [address] [id number] [address] [place] [address] Feb, Dizziness R42 [facility] [address] [id number] [address] [place] [address] Feb, [facility] [address] [id number] [address] [place] [address] Jan, Polyneuropathy G62.9 [facility] [address] [id number] [address] [place] [id number] Jan, Other specified diseases of anus and rectum K62.89 [facility] [address] [id number] [address] [place] [address] Jan, [facility] [address] [id number] [address] [place] [id number] Jan, [facility] [address] [id number] [address] [place] [phone] Jan, [facility] [address] [id number] [address] [place] [address] Jan, Dizziness R42 [facility] [address] [id number] [address] [place] [address] Dec, [facility] [address] [id number] [address] [place] [phone] Dec, [facility] [address] [facility] [id number] [address] [place] [id number] Dec, [facility] [address] [facility] [id number] [address] [place] [address] Dec, Dizziness R42 [facility] [address] [facility] [id number] [address] [place] [id number] November, [facility] [address] [facility] [id number] [address] [place] [id number] Oct, [facility] [address] [facility] [id number] [address] [place] [id number] Oct, [facility] [address] [facility] [id number] [address] [place] [address], [place] [id number] Oct, [facility] [address] [facility] [id number] [address] [place] [phone] Oct, [facility] [address] [facility] [id number] [address] [place] [id number] Sep, [facility] [address] [facility] [id number] [address] [place] [id number] Sep, Primary insomnia F51.01 [facility] [address] [facility] [id number] [address] [place] [id number] Sep, Primary insomnia F51.01 [facility] [address] [facility] [id number] [address] [place] [id number] Sep, [facility] [address] [facility] [id number] [address] [place] [phone] Aug, [facility] [address] [facility] [id number] [address] [place] [phone] Aug, [facility] [address] [facility] [id number] [address] [place] [id number] Aug, Primary insomnia F51.01 ; Mo od disorder F39 ; Nausea and vomiting, unspecified intactability, vomiting of unspecified type R11.2 and Diarrhea R19.7 [facility] [address] [place] [id number] [address] [place] [id number] Aug, [facility] [address] [facility] [id number] [address] [place] [phone] Aug, Folliculitis L73.9 [facility] [address] [facility] [id number] [address] [place] [phone] Aug, [facility] [address] [facility] [id number] [address] [place] [id number] Aug, [facility] [address] [facility] [id number] [address] [place] [id number] Jul, Folliculitis L73.9 [facility] [address] [facility] [id number] [address] [place] [phone] Jul, [facility] [address] [facility] [id number] [address] [place] [id number] Jun, Folliculitis L73.9 [facility] [address] [facility] [id number] [address] [place] [address] Jun, [facility] [address] [facility] [id number] [address] [place] [address] May, Polyneuropathy G62.9 [facility] [address] [facility] [id number] [address] [place] [address] May, Other specified diseases of anus and rectum K62.89 [facility] [address] [place] [id number] [address] [place] [address] May, [facility] [address] [facility] [id number] [address] [place] [address] May, Primary insomnia F51.01 [facility] [address] [facility] [id number] [address] [place] [address] May, [facility] [address] [facility] [id number] [address] [place] [address] May, [facility] [address] [place] [id number] [address] [place] [address] Apr, Other specified diseases of anus and rectum K62.89 ; Chronic fatigue R53.82 ; Urinary tract infection, site not specified N39.0 and Enterococcus as the cause of diseases classified elsewhere B95.2 [facility] [address] [id number] [address] [place] [address] 16 Apr, 2015 [facility] [address] [id number] [address] [place] [address] Apr, [facility] [address] [id number] [address] [place] [address] Apr, 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 [facility] [address] [id number] [address] [place] [address] 05 Apr, 2015 [facility] [address] [id number] [address] [place] [address] Mar, [facility] [address] [id number] [address] [place] [address] 23 Mar, 2015 [facility] [address] [id number] [address] [place] [address] 17 Mar, 2015 [facility] [address] [id number] [address] [place] [id number] 14 Mar, 2015 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 [facility] [address] [id number] [address] [place] [id number] 12 Mar, 2015 [facility] [address] [id number] [address] [place] [address] Mar, [facility] [address] [id number] [address] [place] [address] Mar, [facility] [address] [id number] [address] [place] [address] 10 Mar, 2015 [facility] [address] [id number] [address] [place] [address] Feb, [facility] [address] [id number] [address] [place] [address] Feb, [facility] [address] [id number] [address] [place] [address] Feb, [facility] [address] [id number] [address] [place] [address] Jan, [facility] [address] [id number] [address] [place] [address] Jan, Nausea 787.02 and Neuropathy 355.9 [facility] [address] [id number] [address] [place] [address] Jan, [facility] [address] [id number] [address] [place] [address] Jan, [facility] [address] [id number] [address] [place] [address] Jan, [facility] [address] [id number] [address] [place] [id number] Jan, Dental examination V72.2 [facility] [address] [id number] [address] [place] [address] Jan, [facility] [address] [id number] [address] [place] [address] Dec, [facility] [address] [id number] [address] [place] [address] Dec, [facility] [address] [id number] [address] [place] [address] Dec, Neuropathy 355.9 [facility] [address] [id number] [address] [place] [address] November, [facility] [address] [id number] [address] [place] [address] November, [facility] [address] [id number] [address] [place] [address] November, [facility] [address] [id number] [address] [place] [id number] 14 Oct, 2014 [facility] [address] [id number] [address] [place] [address], [place] [address] Oct, [facility] [address] [id number] [address] [place] [address], [place] [address] Sep, [facility] [address] [id number] [address] [place] [address], [place] [address] Sep, [facility] [address] [id number] [address] [place] [address] Sep, [facility] [address] [id number] [address] [place] [address], [place] [address] Sep, [facility] [address] [id number] [address] [place] [address], [place] [address] Sep, [facility] [address] [id number] [address] [place] [address], [place] [address] Sep, [facility] [address] [id number] [address] [place] [address] Sep, [facility] [address] [id number] [address] [place] [address], [place] [address] Sep, [facility] [address] [id number] [address] [place] [address] Aug, [facility] [address] [id number] [address] [place] [address] Aug, 2014 [facility] [address] [id number] [address] [place] [id number] Aug, [facility] [address] [id number] [address] [place] [address], [place] [address] Aug, [facility] [address] [id number] [address] [place] [id number] Aug, [facility] [address] [id number] [address] [place] [address] Aug, [facility] [address] [id number] [address] [place] [address], [place] [address] Aug, [facility] [address] [id number] [address] [place] [address], [place] [address] Aug, [facility] [address] [id number] [address] [place] [address], [place] [address] Jul, [facility] [address] [id number] [address] [place] [address], [place] [address] Jul, [facility] [address] [id number] [address] [place] [address], [place] [address] Jun, [facility] [address] [id number] [address] [place] [address], [place] [address] Jun, [facility] [address] [id number] [address] [place] [address], [place] [address] Jun, [facility] [address] [id number] [address] [place] [address], [place] [address] Jun, [facility] [address] [id number] [address] [place] [address], [place] [address] Jun, [facility] [address] [id number] [address] [place] [address], [place] [address] Jun, [facility] [address] [id number] [address] [place] [address], [place] [address] Jun, [facility] [address] [id number] [address] [place] [address], [place] [address] Jun, [facility] [address] [id number] [address] [place] [address], [place] [address] Jun, [facility] [address] [id number] [address] [place] [address], [place] [address] Jun, [facility] [address] [id number] [address] [place] [address], [place] [address] Jun, [facility] [address] [id number] [address] [place] [address], [place] [address] May, [facility] [address] [id number] [address] [place] [address], [place] [address] May, [facility] [address] [id number] [address] [place] [address], [place] [address] May, [facility] [address] [id number] [address] [place] [address], [place] [address] May, [facility] [address] [id number] [address] [place] [address], [place] [address] May, [facility] [address] [id number] [address] [place] [address], [place] [address] May, [facility] [address] [id number] [address] [place] [address], [place] [address] May, [facility] [address] [id number] [address] [place] [address], [place] [address] May, [facility] [address] [id number] [address] [place] [address], [place] [address] May, [facility] [address] [id number] [address] [place] [address], [place] [address] Apr, [facility] [address] [id number] [address] [place] [address], [place] [address] Apr, [facility] [address] [id number] [address] [place] [address], [place] [address] Apr, [facility] [address] [id number] [address] [place] [address], [place] [address] Apr, [facility] [address] [id number] [address] [place] [address], [place] [address] 15 Apr, 2014 [facility] [address] [id number] [address] [place] [address], [place] [address] 22 Mar, 2014 [facility] [address] [id number] [address] [place] [address], [place] [address] Mar, [facility] [address] [id number] [facility] [place] [address] Feb, [facility] [address] [id number] [facility] [place] [address] Feb, [facility] [address] [id number] [facility] [place] [address] Feb, [facility] [address] [id number] [facility] [place] [address] Feb, [facility] [address] [id number] [facility] [place] [address] Feb, [facility] [address] [id number] [address] [place] [address], [place] [address] Feb, [facility] [address] [id number] [address] [place] [address], [place] [address] Jan, [facility] [address] [id number] [address] [place] [address], [place] [address] Jan, [facility] [address] [id number] [address] [place] [address], [place] [address] Jan, [facility] [address] [id number] [address] [place] [address], [place] [address] Jan, [facility] [address] [id number] [address] [place] [address], [place] [address] Jan, [facility] [address] [id number] [address] [place] [address], [place] [address] Jan, [facility] [address] [id number] [address] [place] [address], [place] [address] Jan, [facility] [address] [id number] [address] [place] [address], [place] [address] Jan, [facility] [address] [id number] [address] [place] [address], [place] [address] Jan, [facility] [address] [id number] [address] [place] [address], [place] [address] Jan, [facility] [address] [id number] [address] [place] [address], [place] [address] Jan, [facility] [address] [id number] [address] [place] [address], [place] [address] Dec, [facility] [address] [id number] [address] [place] [address], [place] [address] Dec, [facility] [address] [id number] [address] [place] [address], [place] [address] Dec, [facility] [address] [id number] [address] [place] [address], [place] [address] Dec, [facility] [address] [id number] [address] [place] [address], [place] [address] Dec, [facility] [address] [id number] [address] [place] [address], [place] [address] Dec, [facility] [address] [id number] [address] [place] [address], [place] [address] November, [facility] [address] [id number] [address] [place] [address], [place] [address] November, [facility] [address] [id number] [address] [place] [address], [place] [address] November, [facility] [address] [id number] [address] [place] [address], [place] [address] November, [facility] [address] [id number] [address] [place] [address], [place] [address] November, [facility] [address] [id number] [address] [place] [address], [place] [address] November, [facility] [address] [id number] [address] [place] [address], [place] [address] Oct, [facility] [address] [id number] [address] [place] [address], [place] [address] Oct, [facility] [address] [id number] [address] [place] [address], [place] [address] 16 Oct, 2013 [facility] [address] [id number] [address] [place] [address], [place] [address] Oct, [facility] [address] [id number] [address] [place] [address], [place] [address] 17 Sep, 2013 [facility] [address] [id number] [address] [place] [address], [place] [address] 17 Sep, 2013 [facility] [address] [id number] [address] [place] [address], [place] [address] Sep, [facility] [address] [id number] [address] [place] [address], [place] [address] Sep, [facility] [address] [id number] [address] [place] [address], [place] [address] Sep, [facility] [address] [id number] [address] [place] [address], [place] [address] Aug, [facility] [address] [id number] [address] [place] [address], [place] [address] Aug, [facility] [address] [id number] [address] [place] [address], [place] [address] Aug, [facility] [address] [id number] [address] [place] [address], [place] [address] Aug, [facility] [address] [id number] [address] [place] [address], [place] [address] 14 Aug, 2013 [facility] [address] [place] [id number] May, [facility] [address] [id number] [address] [place] [address], [place] [address] May, [facility] [address] [id number] [address] [place] [address], [place] [address] 08 May, 2013 [facility] [address] [id number] [address] [place] [address], [place] [address] May, [facility] [address] [id number] [address] [place] [address], [place] [address] May, [facility] [address] [id number] [address] [place] [address], [place] [address] Apr, [facility] [address] [id number] [address] [place] [address], [place] [address] Apr, [facility] [address] [id number] [address] [place] [address], [place] [address] Apr, [facility] [address] [id number] [address] [place] [address], [place] [address] Apr, [facility] [address] [id number] [address] [place] [address], [place] [address] Apr, [facility] [address] [id number] [address] [place] [address], [place] [address] Apr, [facility] [address] [id number] [address] [place] [address], [place] [address] Apr, [facility] [address] [id number] [address] [place] [address], [place] [address] 28 Mar, 2013 [facility] [address] [id number] [address] [place] [address], [place] [address] 25 Mar, 2013 [facility] [address] [id number] [address] [place] [address], [place] [address] 24 Mar, 2013 [facility] [address] [id number] [address] [place] [address], [place] [address] 16 Mar, 2013 [facility] [address] [id number] [address] [place] [address], [place] [address] 12 Mar, 2013 [facility] [address] [id number] [address] [place] [address], [place] [address] 06 Mar, 2013 [facility] [address] [id number] [address] [place] [address], [place] [address] Feb, [facility] [address] [id number] [address] [place] [address], [place] [address] Feb, [facility] [address] [id number] [address] [place] [address], [place] [address] Feb, [facility] [address] [id number] [address] [place] [address], [place] [address] Feb, [facility] [address] [id number] [address] [place] [address], [place] [address] Feb, [facility] [address] [id number] [address] [place] [address], [place] [address] Feb, [facility] [address] [id number] [address] [place] [address], [place] [address] Jan, [facility] [address] [id number] [address] [place] [address], [place] [address] Dec, [facility] [address] [id number] [address] [place] [address], [place] [address] Dec, [facility] [address] [id number] [address] [place] [address], [place] [address] Dec, [facility] [address] [id number] [address] [place] [address], [place] [address] Dec, [facility] [address] [id number] [address] [place] [address], [place] [address] Dec, [facility] [address] [id number] [address] [place] [address], [place] [address] Dec, [facility] [address] [id number] [address] [place] [address], [place] [id number] Dec, [facility] [address] [id number] [address] [place] [address], [place] [address] Dec, [facility] [address] [id number] [address] [place] [address], [place] [address] Dec, [facility] [address] [id number] [address] [place] [address], [place] [address] November, [facility] [address] [id number] [address] [place] [id number] November, [facility] [address] [id number] [address] [place] [id number] Oct, [facility] [address] [id number] [address] [place] [id number] Sep, [facility] [address] [id number] [address] [place] [phone] Sep, [facility] [address] [id number] [address] [place] [phone] Sep, [facility] [address] [id number] [address] [place] [phone] Sep, [facility] [address] [id number] [address] [place] [phone] Aug, [facility] [address] [id number] [address] [place] [phone] Aug, [facility] [address] [id number] [address] [place] [id number] Jul, [facility] [address] [id number] [address] [place] [phone] Jul, [facility] [address] [id number] [address] [place] [phone] Jul, [facility] [address] [id number] [address] [place] [id number] Sep, [facility] [address] [id number] [address] [place] [id number] 17 Sep, 2011 [facility] [address] [id number] [address] [place] [id number] 10 Sep, 2011 IMMUNIZATIONS No Known Immunizations SOCIAL HISTORY Never Assessed REASON FOR VISIT PLAN OF CARE VITAL SIGNS Height 67 in 2014-09-05 Weight 174 lbs 2014-09-05 Temperature 97.7 degrees Fahrenheit 2014-09-05 Heart Rate 82 bpm 2014-09-05 Respiratory Rate 18 2014-09-05 Blood pressure systolic 110 mmHg 2014-09-05 Blood pressure diastolic 68 mmHg 2014-09-05 MEDICATIONS Unknown Medications RESULTS No Results PROCEDURES [...] bowel obstruction, Dehydration -[facility] 01/01/17 Hospitalization History [facility]- UTI/Sepsis 01/18/2018 Hospitalization History [facility] - infection 4 days 05/2018
--- OUTSIDE RECORDS SUMMARY | 2020-01-14 23:09 | XMS REPORT ---
Author Author Melvin Hwang Doctor Organization [facility] Address Unknown Phone Unavailable Care Team Providers Care Trim Mounter Name Role Phone Migration, Doctor Unavailable Unavailable PROBLEMS Type Condition ICD9-CM Code SNE63-LL Code Onset Dates Condition S tatus SNOMED Code Problem Primary insomnia F51.01 Active 193 647535 Problem Chronic fatigue, unspecified R53.82 A ctive 640272779 Problem Incontinence of feces, unspecified fecal incontinence type R15.9 Active 18538772 Problem Abdominal pain, left lower quadrant R10.32 Active 485685284 Problem Hypertension, benign I10 Active 98592163 Problem Mood disorder F39 Active 197067 05 Problem Attention to urostomy Z43.6 Active 577849573 Problem 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 909132470 Problem Chronic pain syndrome G89.4 Active 741496207 Problem Hydronephrosis with ureteral stricture, not else where classified N13.1 Active 57588508 Problem Neuropathy G62.9 Active 257287096 Problem Anxiety F41.9 Active 34674319 Problem Polyneuropathy G62.9 Active 56554 000 Problem Malignant neoplasm of colon, unspecified part of colon C18.9 Active 158120234 ALLERGIES No Information ENCOUNTERS Encounter Location Date Diagnosis [facility] [address] [facility] [id number] [address] [place] [phone] Oct, [facility] [address] [facility] [id number] [address] [place] [address] Oct, [facility] [address] [facility] [id number] [address] [place] [address] Oct, Neuropathy G62.9 [facility] [address] [facility] [id number] [address] [place] [phone] Sep, [facility] [address] [facility] [id number] [address] [place] [address] Sep, Neuropathy G62.9 [facility] [address] [id number] [address] [place] [address] Sep, [facility] [address] [id number] [address] [place] [address] Sep, H/O malignant carcinoid tumo r of rectum Z85.040 and Primary insomnia F51.01 [facility] [address] [id number] [address] [place] [address] Aug, [facility] [address] [id number] [address] [place] [address] Aug, Neuropathy G62.9 [facility] [address] [id number] [address] [place] [phone] Aug, [facility] [address] [facility] [id number] [address] [place] [address] Jul, Non-recurrent acute suppurat francine otitis media of left ear without spontaneous rupture of tympanic membrane H66.002 [facility] [address] [id number] [address] [place] [address] Jul, Neuropathy G62.9 [facility] [address] [id number] [address] [place] [address] Jun, [facility] [address] [facility] [id number] [address] [place] [phone] Jun, [facility] [address] [id number] [address] [place] [address] Jun, Neuropathy G62.9 [facility] [address] [id number] [address] [place] [phone] Jun, [facility] [address] [id number] [address] [place] [address] Jun, [facility] [address] [facility] [id number] [address] [place] [address] Jun, Lumbar neuritis M54.16 [facility] [address] [address] 30 May, 2018 Neuropathy G62.9 [facility] [address] [address] May, [facility] [address] [address] 05 May, 2018 Neuropathy G62.9 and Hyperte nsion, benign I10 [place] [address] [address] 09 Apr, 2018 Polyneuropathy G62.9 and Hyp ertension, benign I10 [place] [address] [address] 17 Mar, 2018 Chronic pain syndrome G89.4 and Hypertension, benign I10 [place] [address] [address] Mar, Polyneuropathy G62.9 and Hyp ertension, benign I10 [facility] [address] [address] Feb, [facility] [address] [address] Feb, Hypertension, benign I10 [place] [address] [address] Feb, Hypertension, benign I10 ; P olyneuropathy G62.9 and Primary insomnia F51.01 [facility] [address] [address] Jan, Hypertension, benign I10 and Polyneuropathy G62.9 [facility] [address] [address] Jan, Hypertension, benign I10 and Neuropathy G62.9 [facility] [address] [address] Jan, [facility] [address] [place] [address] Dec, Polyneuropathy G62.9 [facility] [address] [id number] [address] [place] [address] Dec, Mood disorder F39 [facility] [address] [id number] [address] [place] [address] November, Polyneuropathy G62.9 [facility] [address] [facility] [id number] [address] [place] [address] November, Medicare annual wellness vis it, initial Z00.00 [facility] [address] [facility] [id number] [address] [place] [address] November, Mood disorder F39 [facility] [address] [facility] [id number] [address] [place] [address] Oct, Polyneuropathy G62.9 [facility] [address] [facility] [id number] [address] [place] [phone] Oct, [facility] [address] [facility] [id number] [address] [place] [phone] Oct, [facility] [address] [facility] [id number] [address] [place] [address] Oct, Mood disorder F39 ; Attentio n to urostomy Z43.6 ; Chronic pain syndrome G89.4 and Polyneuropathy G62.9 [facility] [address] [id number] [address] [place] [address] Sep, Polyneuropathy G62.9 [facility] [address] [facility] [id number] [address] [place] [phone] Sep, [facility] [address] [facility] [id number] [address] [place] [address] Sep, Polyneuropathy G62.9 [facility] [address] [facility] [id number] [address] [place] [address] Aug, Polyneuropathy G62.9 [facility] [address] [id number] [address] [place] [address] Aug, Malignant neoplasm of colon, unspecified part of colon C18.9 and Polyneuropathy G62.9 [facility] [address] [facility] [id number] [address] [place] [address] Aug, Neuropathy G62.9 and Polyneu ropathy G62.9 [facility] [address] [facility] [id number] [address] [place] [address] Jul, Encounter for drug screening Z02.83 [facility] [address] [facility] [id number] [address] [place] [address] Jul, Polyneuropathy G62.9 [facility] [address] [facility] [id number] [address] [place] [address] Jul, [facility] [address] [facility] [id number] [address] [place] [address] Jul, Neuropathy G62.9 and Anxiety F41.9 [facility] [address] [facility] [id number] [address] [place] [id number] Jul, [facility] [address] [facility] [id number] [address] [place] [address] Jul, [facility] [address] [facility] [id number] [address] [place] [address] Jul, [facility] [address] [facility] [id number] [address] [place] [address] Jul, Polyneuropathy G62.9 [facility] [address] [facility] [id number] [address] [place] [address] Jul, [facility] [address] [facility] [id number] [address] [place] [address] Jun, [facility] [address] [facility] [id number] [address] [place] [address] Jun, [facility] [address] [facility] [id number] [address] [place] [address] Jun, [facility] [address] [id number] [place] [address] Jun, Encounter for dental examina tion Z01.20 [facility] [address] [facility] [id number] [address] [place] [address] Jun, Polyneuropathy G62.9 and Anx iety F41.9 [facility] [address] [facility] [id number] [address] [place] [address] Jun, [facility] [address] [id number] [place], [place] [address] May, Dental examination Z01.20 [facility] [address] [place] [id number] [address] [place] [address] May, Polyneuropathy G62.9 [facility] [address] [place] [id number] [address] [place] [address] Apr, Polyneuropathy G62.9 [facility] [address] [place] [id number] [address] [place] [address] Apr, Polyneuropathy G62.9 [facility] [address] [place] [id number] [address] [place] [address] Apr, Hypertension, benign I10 ; P olyneuropathy G62.9 and Anxiety F41.9 [facility] [address] [facility] [id number] [address] [place] [address] Apr, Primary insomnia F51.01 and Polyneuropathy G62.9 [facility] [address] [facility] [id number] [address] [place] [address] Apr, Primary insomnia F51.01 and Polyneuropathy G62.9 [facility] [address] [facility] [id number] [address] [place] [address] Mar, Primary insomnia F51.01 [facility] [address] [facility] [id number] [address] [place] [address] Mar, [facility] [address] [id number] [address] [place] [address], [place] [address] Mar, Polyneuropathy G62.9 [facility] [address] [id number] [address] [place] [address], [place] [address] Feb, Primary insomnia F51.01 [facility] [address] [id number] [address] [place] [address], [place] [address] Feb, [facility] [address] [id number] [address] [place] [address], [place] [address] Feb, [facility] [address] [id number] [address] [place] [address], [place] [address] Feb, Polyneuropathy G62.9 [facility] [address] [id number] [address] [place] [address], [place] [address] Feb, Primary insomnia F51.01 [facility] [address] [id number] [address] [place] [address] Jan, [facility] [address] [id number] [address] [place] [address], [place] [address] Jan, [facility] [address] [id number] [address] [place] [address] Dec, [facility] [address] [id number] [address] [place] [address] Dec, Primary insomnia F51.01 [facility] [address] [id number] [address] [place] [address] Dec, Primary insomnia F51.01 [facility] [address] [id number] [address] [place] [address] Dec, [facility] [address] [id number] [address] [place] [address] Dec, [facility] [address] [id number] [address] [place] [address] Dec, [facility] [address] [id number] [address] [place] [address] Dec, [facility] [address] [id number] [address] [place] [address] November, Primary insomnia F51.01 and Polyneuropathy G62.9 [facility] [address] [id number] [address] [place] [address] November, [facility] [address] [id number] [address] [place] [address] November, Abdominal pain, left lower q uadrant R10.32 [facility] [address] [id number] [address] [place] [address] November, [facility] [address] [id number] [address] [place] [address] Oct, [facility] [address] [facility] [id number] [address] [place] [address] Oct, Abdominal pain, left lower q uadrant R10.32 ; H/O malignant carcinoid tumor of rectum Z85.040 and Neuropathy G62.9 [facility] [address] [id number] [address] [place] [address] Oct, [facility] [address] [facility] [id number] [address] [place] [address] Sep, [facility] [id number] [place] [id number] Sep, [facility] [address] [facility] [id number] [address] [place] [address] Sep, [facility] [address] [facility] [id number] [address] [place] [address] Aug, [facility] [address] [facility] [id number] [address] [place] [address] Aug, [facility] [address] [facility] [id number] [address] [place] [address] Aug, Abdominal pain, left lower q uadrant R10.32 ; Neuropathy G62.9 and Anxiety F41.9 [facility] [address] [place] [address] Jul, [facility] [address] [id number] [address] [place] [address] Jul, [facility] [address] [id number] [address] [place] [id number] Jul, [facility] [address] [id number] [address] [place] [address] Jul, [facility] [address] [id number] [address] [place] [address] Jul, [facility] [address] [id number] [address] [place] [address] Jun, [facility] [address] [id number] [address] [place] [address] May, [facility] [address] [id number] [address] [place] [address] May, [facility] [address] [id number] [address] [place] [address] Apr, [facility] [address] [id number] [address] [place] [address] Apr, Muscle spasms of both lower extremities M62.838 and Cellulitis, unspecified cellulitis site L03.90 [facility] [address] [id number] [address] [place] [address] Apr, [facility] [address] [id number] [address] [place] [address] 23 Mar, 2016 Generalized abdominal pain R 10.84 [facility] [address] [id number] [address] [place] [address] 20 Mar, 2016 [facility] [address] [id number] [address] [place] [address] 14 Mar, 2016 [facility] [address] [id number] [address] [place] [address] 14 Mar, 2016 [facility] [address] [id number] [address] [place] [id number] 13 Mar, 2016 [facility] [address] [id number] [address] [place] [address] 12 Mar, 2016 [facility] [address] [id number] [address] [place] [id number] 09 Mar, 2016 [facility] [address] [id number] [address] [place] [address] 06 Mar, 2016 [facility] [address] [id number] [address] [place] [address] Feb, Other specified diseases of anus and rectum K62.89 [facility] [address] [id number] [address] [place] [address] Feb, [facility] [address] [id number] [address] [place] [address] Feb, Dizziness R42 [facility] [address] [id number] [address] [place] [address] Feb, [facility] [address] [id number] [address] [place] [address] Jan, Polyneuropathy G62.9 [facility] [address] [id number] [address] [place] [address] Jan, Other specified diseases of anus and rectum K62.89 [facility] [address] [id number] [address] [place] [id number] Jan, [facility] [address] [id number] [address] [place] [id number] 16 Jan, 2016 [facility] [address] [id number] [address] [place] [phone] Jan, [facility] [address] [id number] [address] [place] [address], [place] [address] 07 Jan, 2016 Dizziness R42 [facility] [address] [id number] [address] [place] [address], [place] [address] Dec, [facility] [address] [id number] [address] [place] [address], [place] [address] Dec, [facility] [address] [id number] [address] [place] [address], [place] [address] Dec, [facility] [address] [id number] [address] [place] [address], [place] [address] Dec, Dizziness R42 [facility] [address] [id number] [address] [place] [address], [place] [id number] November, [facility] [address] [id number] [address] [place] [address], [place] [address] Oct, [facility] [address] [id number] [address] [place] [address], [place] [address] Oct, [facility] [address] [id number] [address] [place] [address], [place] [address] Oct, [facility] [address] [id number] [address] [place] [address], [place] [id number] Oct, [facility] [address] [id number] [address] [place] [address], [place] [id number] Sep, [facility] [place] [address] [id number] [address] [place] [address], [place] [address] Sep, Primary insomnia F51.01 [facility] [address] [id number] [address] [place] [address], [place] [address] Sep, Primary insomnia F51.01 [facility] [address] [id number] [address] [place] [address], [place] [address] Sep, [facility] [address] [id number] [address] [place] [address], [place] [address] Aug, [facility] [address] [id number] Aug, [facility] [address] [id number] Aug, Primary insomnia F51.01 ; Mo od disorder F39 ; Nausea and vomiting, unspecified intactability, vomiting of unspecified type R11.2 and Diarrhea R19.7 [facility] [address] [id number] Aug, [facility] [address] [id number] Aug, Folliculitis L73.9 [facility] [address] [address] Aug, [facility] [address] [id number] Aug, [facility] [address] [address] Jul, Folliculitis L73.9 [facility] [address] [id number] Jul, [facility] [address] [id number] Jun, Folliculitis L73.9 [facility] [address] [address] Jun, [facility] [address] [id number] May, Polyneuropathy G62.9 [facility] [address] [id number] May, Other specified diseases of anus and rectum K62.89 [facility] [address] [id number] [address] [place] [address] May, [facility] [id number] [place] [address] 13 May, 2015 Primary insomnia F51.01 [facility] [address] [facility] [id number] [address] [place] [id number] May, [facility] [address] [facility] [id number] [address] [place] [id number] May, [facility] [address] [facility] [id number] [address] [place] [id number] Apr, Other specified diseases of anus and rectum K62.89 ; Chronic fatigue R53.82 ; Urinary tract infection, site not specified N39.0 and Enterococcus as the cause of diseases classified elsewhere B95.2 [facility] [address] [id number] [address] [place] [id number] 16 Apr, 2015 [facility] [address] [facility] [id number] [address] [place] [id number] 15 Apr, 2015 [facility] [address] [facility] [id number] [address] [place] [id number] 14 Apr, 2015 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 [facility] [address] [facility] [id number] [address] [place] [id number] 05 Apr, 2015 [facility] [address] [facility] [id number] [address] [place] [id number] 26 Mar, 2015 [facility] [address] [facility] [id number] [address] [place] [id number] 23 Mar, 2015 [facility] [address] [id number] [address] [place] [id number] 17 Mar, 2015 [facility] [address] [id number] [address] [place] [id number] 14 Mar, 2015 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 [facility] [address] [id number] [address] [place] [id number] 12 Mar, 2015 [facility] [address] [facility] [id number] [address] [place] [id number] Mar, [facility] [address] [id number] [address] [place] [id number] Mar, [facility] [address] [id number] [address] [place] [id number] Mar, [facility] [address] [id number] [address] [place] [id number] Feb, [facility] [address] [id number] [address] [place] [id number] Feb, [facility] [address] [id number] [address] [place] [id number] Feb, [facility] [address] [id number] [address] [place] [id number] Jan, [facility] [address] [id number] [address] [place] [id number] Jan, Nausea 787.02 and Neuropathy 355.9 [facility] [address] [id number] [address] [place] [id number] Jan, [facility] [address] [id number] [address] [place] [id number] Jan, [facility] [address] [id number] [address] [place] [id number] Jan, [facility] [address] [id number] [address] [place] [id number] Jan, Dental examination V72.2 [facility] [address] [id number] [address] [place] [id number] Jan, [facility] [address] [id number] [address] [place] [id number] Dec, [facility] [address] [id number] [address] [place] [id number] Dec, [facility] [address] [id number] [address] [place] [id number] Dec, Neuropathy 355.9 [facility] [address] [id number] [address] [place] [address], [place] [address] November, [facility] [address] [id number] [address] [place] [address], [place] [address] November, [facility] [address] [id number] [address] [place] [address], [place] [address] November, [facility] [address] [id number] [address] [place] [address], [place] [address] Oct, [facility] [address] [id number] [address] [place] [address], [place] [address] Oct, [facility] [address] [id number] [address] [place] [address], [place] [address] Sep, [facility] [address] [id number] [address] [place] [address], [place] [address] Sep, [facility] [address] [id number] [address] [place] [address], [place] [address] Sep, [facility] [address] [id number] [address] [place] [address], [place] [address] Sep, [facility] [address] [id number] [address] [place] [address], [place] [address] Sep, [facility] [address] [id number] [address] [place] [address], [place] [address] Sep, [facility] [address] [id number] [address] [place] [id number] Sep, [facility] [address] [id number] [address] [place] [address], [place] [address] Sep, [facility] [address] [id number] [address] [place] [address], [place] [address] Aug, [facility] [address] [id number] [address] [place] [address], [place] [address] Aug, [facility] [address] [id number] [address] [place] [address], [place] [address] Aug, 2014 [facility] [address] [id number] [address] [place] [address], [place] [address] Aug, 2014 [facility] [address] [id number] [address] [place] [address], [place] [address] Aug, 2014 [facility] [address] [id number] [address] [place] [address], [place] [address] Aug, 2014 [facility] [address] [id number] [address] [place] [address], [place] [address] Aug, 2014 [facility] [address] [id number] [address] [place] [address], [place] [address] Aug, 2014 [facility] [address] [id number] [address] [place] [address], [place] [address] Jul, [facility] [address] [id number] [address] [place] [address], [place] [address] Jul, [facility] [address] [id number] [address] [place] [address], [place] [address] Jun, [facility] [address] [id number] [address] [place] [address], [place] [address] Jun, [facility] [address] [id number] [address] [place] [address], [place] [address] Jun, [facility] [address] [id number] [address] [place] [address], [place] [address] Jun, [facility] [address] [id number] [address] [place] [address], [place] [address] Jun, [facility] [address] [id number] [address] [place] [address], [place] [address] Jun, [facility] [address] [id number] [address] [place] [address], [place] [address] Jun, [facility] [address] [id number] [address] [place] [address], [place] [address] Jun, [facility] [address] [id number] [address] [place] [address], [place] [address] Jun, [facility] [address] [id number] [address] [place] [address], [place] [address] Jun, [facility] [address] [id number] [address] [place] [address], [place] [address] Jun, [facility] [address] [id number] [address] [place] [address], [place] [address] May, [facility] [address] [id number] [address] [place] [address], [place] [address] May, [facility] [address] [id number] [address] [place] [address], [place] [address] May, [facility] [address] [id number] [address] [place] [address], [place] [address] May, [facility] [address] [id number] [address] [place] [address], [place] [address] May, [facility] [address] [id number] [address] [place] [address], [place] [address] May, [facility] [address] [id number] [address] [place] [address] May, [facility] [address] [id number] [address] [place] [address], [place] [address] May, [facility] [address] [id number] [address] [place] [address] May, [facility] [address] [id number] [address] [place] [address], [place] [address] Apr, [facility] [address] [id number] [address] [place] [address], [place] [address] Apr, [facility] [address] [id number] [address] [place] [address], [place] [address] Apr, [facility] [address] [id number] [address] [place] [id number] Apr, [facility] [address] [id number] [address] [place] [address], [place] [address] Apr, [facility] [address] [id number] [address] [place] [address], [place] [address] Mar, [facility] [address] [id number] [address] [place] [address], [place] [address] Mar, [facility] [address] [id number] [address] [place] [address], [place] [address] Feb, [facility] [address] [id number] [address] [place] [address], [place] [address] Feb, [facility] [address] [id number] [address] [place] [address], [place] [address] Feb, [facility] [address] [id number] [address] [place] [address], [place] [address] Feb, [facility] [address] [id number] [address] [place] [address], [place] [address] Feb, [facility] [address] [id number] [address] [place] [address], [place] [address] Feb, [facility] [address] [id number] [address] [place] [address], [place] [address] Jan, [facility] [address] [id number] [address] [place] [address], [place] [address] Jan, [facility] [address] [id number] [address] [place] [address], [place] [address] Jan, [facility] [address] [id number] [address] [place] [address], [place] [address] Jan, [facility] [address] [id number] [address] [place] [address], [place] [address] Jan, [facility] [address] [id number] [address] [place] [address], [place] [address] Jan, [facility] [address] [id number] [facility] [place] [address] Jan, [facility] [address] [id number] [facility] [place] [address] Jan, [facility] [address] [id number] [facility] [place] [address] Jan, [facility] [address] [id number] [facility] [place] [address] Jan, [facility] [address] [id number] [facility] [place] [address] Jan, [facility] [address] [id number] [facility] [place] [address] Dec, [facility] [address] [id number] [address] [place] [address], [place] [address] Dec, [facility] [address] [id number] [address] [place] [address], [place] [address] Dec, [facility] [address] [id number] [address] [place] [address], [place] [address] Dec, [facility] [address] [id number] [address] [place] [address], [place] [address] Dec, [facility] [address] [id number] [address] [place] [address], [place] [address] Dec, [facility] [address] [id number] [address] [place] [address], [place] [address] November, [facility] [address] [id number] [address] [place] [address], [place] [address] November, [facility] [address] [id number] [address] [place] [address], [place] [address] November, [facility] [address] [id number] [address] [place] [address], [place] [address] November, [facility] [address] [id number] [address] [place] [address], [place] [address] November, [facility] [address] [id number] [facility] [place] [address] November, [facility] [address] [id number] [facility] [place] [address] Oct, [facility] [address] [id number] [facility] [place] [address] Oct, [facility] [address] [id number] [address] [place] [address], [place] [address] Oct, [facility] [address] [id number] [address] [place] [address], [place] [address] Oct, [facility] [address] [id number] [address] [place] [address], [place] [address] Sep, [facility] [address] [id number] [address] [place] [address], [place] [address] Sep, [facility] [address] [id number] [address] [place] [address], [place] [address] Sep, [facility] [address] [id number] [address] [place] [address], [place] [address] Sep, [facility] [address] [id number] [address] [place] [address], [place] [address] Sep, [facility] [address] [id number] [address] [place] [address], [place] [address] Aug, [facility] [address] [id number] [address] [place] [address], [place] [address] Aug, [facility] [address] [id number] [address] [place] [address], [place] [address] Aug, [facility] [address] [id number] [address] [place] [address], [place] [address] Aug, [facility] [address] [id number] [address] [place] [address], [place] [address] 14 Aug, 2013 [facility] [address] [place] [id number] May, [facility] [address] [id number] [address] [place] [address], [place] [address] May, [facility] [address] [id number] [address] [place] [address], [place] [address] May, [facility] [address] [id number] [address] [place] [address], [place] [address] May, [facility] [address] [id number] [address] [place] [address], [place] [address] May, [facility] [address] [id number] [address] [place] [address], [place] [address] Apr, [facility] [address] [id number] [address] [place] [address], [place] [address] Apr, [facility] [address] [id number] [address] [place] [address], [place] [address] Apr, [facility] [address] [id number] [address] [place] [address], [place] [address] Apr, [facility] [address] [id number] [address] [place] [address], [place] [address] Apr, [facility] [address] [id number] [address] [place] [address], [place] [address] Apr, [facility] [address] [id number] [address] [place] [address], [place] [address] Apr, [facility] [address] [id number] [address] [place] [address], [place] [address] 28 Mar, 2013 [facility] [address] [id number] [address] [place] [address], [place] [address] 25 Mar, 2013 [facility] [address] [id number] [address] [place] [address], [place] [address] 24 Mar, 2013 [facility] [address] [id number] [address] [place] [address], [place] [address] 16 Mar, 2013 [facility] [address] [id number] [address] [place] [address], [place] [address] Mar, [facility] [address] [id number] [address] [place] [address], [place] [address] Mar, [facility] [address] [id number] [address] [place] [address], [place] [address] Feb, [facility] [address] [id number] [address] [place] [address], [place] [address] Feb, [facility] [address] [id number] [address] [place] [address], [place] [address] Feb, [facility] [address] [id number] [address] [place] [address], [place] [address] Feb, [facility] [address] [id number] [address] [place] [address], [place] [address] Feb, [facility] [address] [id number] [address] [place] [address], [place] [address] Feb, [facility] [address] [id number] [address] [place] [address], [place] [address] Jan, [facility] [address] [id number] [address] [place] [address], [place] [address] Dec, [facility] [address] [id number] [address] [place] [address], [place] [address] Dec, [facility] [address] [id number] [address] [place] [address], [place] [address] Dec, [facility] [address] [id number] [address] [place] [address], [place] [address] Dec, [facility] [address] [id number] [address] [place] [address], [place] [address] Dec, [facility] [address] [id number] [address] [place] [address], [place] [address] Dec, [facility] [address] [id number] [address] [place] [address], [place] [address] 17 Dec, 2012 [facility] [address] [id number] [address] [place] [address], [place] [address] Dec, [facility] [address] [id number] [address] [place] [address], [place] [address] Dec, [facility] [address] [id number] [address] [place] [address], [place] [address] November, [facility] [address] [id number] [address] [place] [address], [place] [address] November, [facility] [address] [id number] [address] [place] [address], [place] [id number] Oct, [facility] [address] [id number] [address] [place] [address], [place] [id number] Sep, [facility] [address] [id number] [address] [place] [address], [place] [id number] Sep, [facility] [address] [id number] [address] [place] [address], [place] [id number] 15 Sep, 2012 [facility] [address] [id number] [address] [place] [address], [place] [id number] Sep, [facility] [address] [id number] [address] [place] [address], [place] [id number] Aug, [facility] [address] [id number] [address] [place] [address], [place] [id number] Aug, [facility] [address] [id number] [address] [place] [address], [place] [id number] Jul, [facility] [address] [id number] [address] [place] [address], [place] [id number] Jul, [facility] [address] [id number] [address] [place] [address], [place] [id number] Jul, [facility] [address] [id number] [address] [place] [address], [place] [id number] Sep, [facility] [address] [id number] [address] [address] Sep[facility] [address] [facility] [id number] [address] [address] Sep, IMMUNIZATIONS No Known Immunizations SOCIAL HISTORY Never Assessed REASON FOR VISIT EMR[place] [place]AN OF CARE VITAL SIGNS MEDICATIONS Unknown [...] bowel obstruction, Dehydration -VC 01/01/17 Hospitalization History [facility]- UTI/Sepsis 01/18/2018 Hospitalization History [facility] - infection 4 days 05/2018
--- OUTSIDE RECORDS SUMMARY | 2020-01-14 23:09 | XMS REPORT ---
Author Author Melvin Hwang Doctor Organization [facility] Address Unknown Phone Unavailable Care Team Providers Care Weeder Name Role Phone Migration, Doctor Unavailable Unavailable PROBLEMS Type Condition ICD9-CM Code [id number] Code Onset Dates Condition S tatus SNOMED Code Problem Primary insomnia F51.01 Active 193 624365 Problem Chronic fatigue, unspecified R53.82 A ctive 140372207 Problem Incontinence of feces, unspecified fecal incontinence type R15.9 Active 23211633 Problem Abdominal pain, left lower quadrant R10.32 Active 031589793 Problem Hypertension, benign I10 Active 70809358 Problem Mood disorder F39 Active 953228 05 Problem Attention to urostomy Z43.6 Active 523696564 Problem 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 795384555 Problem Chronic pain syndrome G89.4 Active 990834122 Problem Hydronephrosis with ureteral stricture, not else where classified N13.1 Active 18350173 Problem Neuropathy G62.9 Active 337610658 Problem Anxiety F41.9 Active 04377852 Problem Polyneuropathy G62.9 Active 44410 000 Problem Malignant neoplasm of colon, unspecified part of colon C18.9 Active [id number] ALLERGIES No Information ENCOUNTERS Encounter Location Date Diagnosis [facility] [place] [address] [facility] [id number] [address] [place] [phone] Oct, [facility] [place] [address] [facility] [id number] [address] [place] [id number] Oct, [facility] [place] [address] [facility] [id number] [address] [place] [id number] Oct, Neuropathy G62.9 [facility] [place] [address] [facility] [id number] [address] [place] [id number] Sep, [facility] [place] [address] [facility] [id number] [address] [place] [id number] Sep, Neuropathy G62.9 [facility] [place] [address] [id number] [address] [place] [id number] Sep, [facility] [place] [address] [id number] [address] [place] [id number] Sep, H/O malignant carcinoid tumo r of rectum Z85.040 and Primary insomnia F51.01 [facility] [place] [address] [id number] [address] [place] [id number] Aug, [facility] [place] [address] [id number] [address] [place] [phone] Aug, Neuropathy G62.9 [facility] [place] [address] [id number] [address] [place] [id number] Aug, [facility] [place] [address] [facility] [id number] [address] [place] [phone] Jul, Non-recurrent acute suppurat francine otitis media of left ear without spontaneous rupture of tympanic membrane H66.002 [facility] [place] [address] [id number] [address] [place] [id number] Jul, Neuropathy G62.9 [facility] [place] [address] [id number] [address] [place] [id number] Jun, [facility] [place] [address] [facility] [id number] [address] [place] [id number] Jun, [facility] [place] [address] [id number] [address] [place] [id number] Jun, Neuropathy G62.9 [facility] [place] [address] [id number] [address] [place] [id number] Jun, [facility] [place] [address] [id number] [address] [place] [phone] Jun, [facility] [place] [address] [facility] [id number] [address] [place] [id number] Jun, Lumbar neuritis M54.16 [facility] [place] [address] [id number] 30 May, 2018 Neuropathy G62.9 [facility] [place] [address] [id number] May, [facility] [place] [address] [id number] 05 May, 2018 Neuropathy G62.9 and Hyperte nsion, benign I10 [place] [address] [id number] 09 Apr, 2018 Polyneuropathy G62.9 and Hyp ertension, benign I10 [place] [address] [id number] 17 Mar, 2018 Chronic pain syndrome G89.4 and Hypertension, benign I10 [place] [address] [address] Mar, Polyneuropathy G62.9 and Hyp ertension, benign I10 [facility] [place] [address] [id number] Feb, [facility] [place] [address] [address] Feb, Hypertension, benign I10 [place] [address] [address] Feb, Hypertension, benign I10 ; P olyneuropathy G62.9 and Primary insomnia F51.01 [facility] [place] [address] [address] Jan, Hypertension, benign I10 and Polyneuropathy G62.9 [facility] [place] [address] [id number] Jan, Hypertension, benign I10 and Neuropathy G62.9 [facility] [place] [address] [address] Jan, [facility] [place] [address] [place] [address] Dec, Polyneuropathy G62.9 [facility] [place] [address] [id number] [address] [place] [phone] Dec, Mood disorder F39 [facility] [place] [address] [id number] [address] [place] [id number] November, Polyneuropathy G62.9 [facility] [place] [address] [facility] [id number] [address] [place] [id number] November, Medicare annual wellness vis it, initial Z00.00 [facility] [place] [address] [facility] [id number] [address] [place] [phone] November, Mood disorder F39 [facility] [place] [address] [facility] [id number] [address] [place] [phone] Oct, Polyneuropathy G62.9 [facility] [place] [address] [facility] [id number] [address] [place] [id number] Oct, [facility] [place] [address] [facility] [id number] [address] [place] [id number] Oct, [facility] [place] [address] [facility] [id number] [address] [place] [phone] Oct, Mood disorder F39 ; Attentio n to urostomy Z43.6 ; Chronic pain syndrome G89.4 and Polyneuropathy G62.9 [facility] [place] [address] [id number] [address] [place] [id number] Sep, Polyneuropathy G62.9 [facility] [place] [address] [facility] [id number] [address] [place] [phone] Sep, [facility] [place] [address] [facility] [id number] [address] [place] [id number] Sep, Polyneuropathy G62.9 [facility] [place] [address] [facility] [id number] [address] [place] [phone] Aug, Polyneuropathy G62.9 [facility] [place] [address] [id number] [address] [place] [id number] Aug, Malignant neoplasm of colon, unspecified part of colon C18.9 and Polyneuropathy G62.9 [facility] [place] [address] [facility] [id number] [address] [place] [id number] Aug, Neuropathy G62.9 and Polyneu ropathy G62.9 [facility] [place] [address] [facility] [id number] [address] [place] [id number] Jul, Encounter for drug screening Z02.83 [facility] [place] [address] [facility] [id number] [address] [place] [id number] Jul, Polyneuropathy G62.9 [facility] [place] [address] [facility] [id number] [address] [place] [phone] Jul, [facility] [place] [address] [facility] [id number] [address] [place] [id number] Jul, Neuropathy G62.9 and Anxiety F41.9 [facility] [place] [address] [facility] [id number] [address] [place] [id number] Jul, [facility] [place] [address] [facility] [id number] [address] [place] [id number] Jul, [facility] [place] [address] [facility] [id number] [address] [place] [phone] Jul, [facility] [place] [address] [facility] [id number] [address] [place] [phone] Jul, Polyneuropathy G62.9 [facility] [place] [address] [facility] [id number] [address] [place] [id number] Jul, [facility] [place] [address] [facility] [id number] [address] [place] [id number] Jun, [facility] [place] [address] [facility] [id number] [address] [place] [id number] Jun, [facility] [place] [address] [facility] [id number] [address] [place] [phone] Jun, [facility] [address] [id number] [address] [address] Jun, Encounter for dental examina tion Z01.20 [facility] [place] [address] [facility] [id number] [address] [place] [id number] Jun, Polyneuropathy G62.9 and Anx iety F41.9 [facility] [place] [address] [facility] [id number] [address] [place] [phone] Jun, [facility] [address] [id number] [address] [address] May, Dental examination Z01.20 [facility] [place] [address] [place] [id number] [address] [place] [id number] May, Polyneuropathy G62.9 [facility] [place] [address] [place] [id number] [address] [place] [id number] Apr, Polyneuropathy G62.9 [facility] [place] [address] [place] [id number] [address] [place] [id number] Apr, Polyneuropathy G62.9 [facility] [place] [address] [place] [id number] [address] [place] [id number] Apr, Hypertension, benign I10 ; P olyneuropathy G62.9 and Anxiety F41.9 [facility] [place] [address] [facility] [id number] [address] [place] [phone] Apr, Primary insomnia F51.01 and Polyneuropathy G62.9 [facility] [place] [address] [facility] [id number] [address] [place] [phone] Apr, Primary insomnia F51.01 and Polyneuropathy G62.9 [facility] [place] [address] [facility] [id number] [address] [place] [id number] Mar, Primary insomnia F51.01 [facility] [place] [address] [facility] [id number] [address] [place] [id number] Mar, [facility] [address] [id number] [address] [place] [address], [place] [address] Mar, Polyneuropathy G62.9 [facility] [address] [id number] [address] [place] [address], [place] [address] Feb, Primary insomnia F51.01 [facility] [place] [address] [id number] [address] [place] [address], [place] [address] Feb, [facility] [address] [id number] [address] [place] [address], [place] [address] Feb, [facility] [address] [id number] [address] [place] [address], [place] [address] Feb, Polyneuropathy G62.9 [facility] [place] [address] [id number] [address] [place] [address], [place] [address] Feb, Primary insomnia F51.01 [facility] [place] [address] [id number] [address] [place] [id number] Jan, [facility] [place] [address] [id number] [address] [place] [address], [place] [address] Jan, [facility] [place] [address] [id number] [address] [place] [phone] Dec, [facility] [place] [address] [id number] [address] [place] [id number] Dec, Primary insomnia F51.01 [facility] [place] [address] [id number] [address] [place] [id number] Dec, Primary insomnia F51.01 [facility] [address] [id number] [address] [place] [id number] Dec, [facility] [address] [id number] [address] [place] [id number] Dec, [facility] [place] [address] [id number] [address] [place] [id number] Dec, [facility] [address] [id number] [address] [place] [id number] Dec, [facility] [address] [id number] [address] [place] [phone] November, Primary insomnia F51.01 and Polyneuropathy G62.9 [facility] [place] [address] [id number] [address] [place] [phone] November, [facility] [address] [id number] [address] [place] [id number] November, Abdominal pain, left lower q uadrant R10.32 [facility] [address] [id number] [address] [place] [id number] November, [facility] [address] [id number] [address] [place] [id number] Oct, [facility] [address] [facility] [id number] [address] [place] [phone] Oct, Abdominal pain, left lower q uadrant R10.32 ; H/O malignant carcinoid tumor of rectum Z85.040 and Neuropathy G62.9 [facility] [place] [address] [id number] [address] [place] [phone] Oct, [facility] [address] [facility] [id number] [address] [place] [phone] Sep, [facility] [place] [id number] [place] [id number] Sep, [facility] [address] [facility] [id number] [address] [place] [id number] Sep, [facility] [address] [facility] [id number] [address] [place] [id number] Aug, [facility] [address] [facility] [id number] [address] [place] [id number] Aug, [facility] [address] [facility] [id number] [address] [place] [id number] Aug, Abdominal pain, left lower q uadrant R10.32 ; Neuropathy G62.9 and Anxiety F41.9 [facility] [address] [place] [address] Jul, [facility] [place] [address] [id number] [address] [place] [id number] Jul, [facility] [address] [id number] [address] [place] [phone] Jul, [facility] [place] [address] [id number] [address] [place] [id number] Jul, [facility] [place] [address] [id number] [address] [place] [phone] Jul, [facility] [place] [address] [id number] [address] [place] [id number] Jun, [facility] [place] [address] [id number] [address] [place] [id number] May, [facility] [place] [address] [id number] [address] [place] [id number] May, [facility] [place] [address] [id number] [address] [place] [id number] Apr, [facility] [place] [address] [id number] [address] [place] [id number] Apr, Muscle spasms of both lower extremities M62.838 and Cellulitis, unspecified cellulitis site L03.90 [facility] [place] [address] [id number] [address] [place] [id number] Apr, [facility] [place] [address] [id number] [address] [place] [id number] 23 Mar, 2016 Generalized abdominal pain R 10.84 [facility] [place] [address] [id number] [address] [place] [id number] 20 Mar, 2016 [facility] [place] [address] [id number] [address] [place] [id number] 14 Mar, 2016 [facility] [place] [address] [id number] [address] [place] [id number] 14 Mar, 2016 [facility] [place] [address] [id number] [address] [place] [id number] 13 Mar, 2016 [facility] [place] [address] [id number] [address] [place] [phone] 12 Mar, 2016 [facility] [place] [address] [id number] [address] [place] [id number] 09 Mar, 2016 [facility] [place] [address] [id number] [address] [place] [id number] 06 Mar, 2016 [facility] [place] [address] [id number] [address] [place] [id number] Feb, Other specified diseases of anus and rectum K62.89 [facility] [place] [address] [id number] [address] [place] [id number] Feb, [facility] [place] [address] [id number] [address] [place] [id number] Feb, Dizziness R42 [facility] [place] [address] [id number] [address] [place] [id number] Feb, [facility] [place] [address] [id number] [address] [place] [id number] Jan, Polyneuropathy G62.9 [facility] [place] [address] [id number] [address] [place] [id number] Jan, Other specified diseases of anus and rectum K62.89 [facility] [place] [address] [id number] [address] [place] [id number] Jan, [facility] [address] [id number] [address] [place] [id number] 16 Jan, 2016 [facility] [place] [address] [id number] [address] [place] [id number] Jan, [facility] [address] [id number] [address] [place] [address], [place] [id number] 07 Jan, 2016 Dizziness R42 [facility] [address] [id number] [address] [place] [address], [place] [id number] Dec, [facility] [address] [id number] [address] [place] [address], [place] [id number] Dec, [facility] [address] [id number] [address] [place] [address], [place] [id number] Dec, [facility] [address] [id number] [address] [place] [address], [place] [id number] Dec, Dizziness R42 [facility] [address] [id number] [address] [place] [address], [place] [id number] November, [facility] [address] [id number] [address] [place] [address], [place] [id number] Oct, [facility] [address] [id number] [address] [place] [address], [place] [id number] Oct, [facility] [address] [id number] [address] [place] [address], [place] [id number] Oct, [facility] [address] [id number] [address] [place] [address], [place] [id number] Oct, [facility] [address] [id number] [address] [place] [address], [place] [id number] Sep, [facility] [address] [id number] [address] [place] [address], [place] [id number] Sep, Primary insomnia F51.01 [facility] [address] [id number] [address] [place] [address], [place] [address] Sep, Primary insomnia F51.01 [facility] [address] [id number] [address] [place] [address], [place] [address] Sep, [facility] [address] [id number] [address] [place] [address], [place] [address] Aug, [facility] [address] [id number] Aug, [facility] [place] [address] [address] Aug, Primary insomnia F51.01 ; Mo od disorder F39 ; Nausea and vomiting, unspecified intactability, vomiting of unspecified type R11.2 and Diarrhea R19.7 [facility] [place] [address] [id number] Aug, [facility] [place] [address] [address] Aug, Folliculitis L73.9 [facility] [place] [address] [id number] Aug, [facility] [place] [address] [id number] Aug, [facility] [place] [address] [id number] Jul, Folliculitis L73.9 [facility] [place] [address] [address] Jul, [facility] [place] [address] [id number] Jun, Folliculitis L73.9 [facility] [place] [address] [id number] Jun, [facility] [place] [address] [id number] May, Polyneuropathy G62.9 [facility] [place] [address] [address] May, Other specified diseases of anus and rectum K62.89 [facility] [place] [address] [id number] [address] [place] [address] May, [facility] [place] [address] [address] 13 May, 2015 Primary insomnia F51.01 [facility] [place] [address] [facility] [id number] [address] [place] [address] May, [facility] [place] [address] [facility] [id number] [address] [place] [id number] May, [facility] [place] [address] [facility] [id number] [address] [place] [address] Apr, Other specified diseases of anus and rectum K62.89 ; Chronic fatigue R53.82 ; Urinary tract infection, site not specified N39.0 and Enterococcus as the cause of diseases classified elsewhere B95.2 [facility] [place] [address] [id number] [address] [place] [id number] 16 Apr, 2015 [facility] [place] [address] [facility] [id number] [address] [place] [id number] 15 Apr, 2015 [facility] [place] [address] [facility] [id number] [address] [place] [id number] 14 Apr, 2015 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 [facility] [place] [address] [facility] [id number] [address] [place] [id number] 05 Apr, 2015 [facility] [place] [address] [facility] [id number] [address] [place] [id number] 26 Mar, 2015 [facility] [place] [address] [facility] [id number] [address] [place] [id number] 23 Mar, 2015 [facility] [place] [address] [id number] [address] [place] [id number] 17 Mar, 2015 [facility] [place] [address] [id number] [address] [place] [id number] 14 Mar, 2015 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 [facility] [place] [address] [id number] [address] [place] [id number] 12 Mar, 2015 [facility] [place] [address] [facility] [id number] [address] [place] [id number] Mar, [facility] [address] [id number] [address] [place] [id number] Mar, [facility] [address] [id number] [address] [place] [id number] Mar, [facility] [address] [id number] [address] [place] [id number] Feb, [facility] [address] [id number] [address] [place] [id number] Feb, [facility] [address] [id number] [address] [place] [id number] Feb, [facility] [address] [id number] [address] [place] [id number] Jan, [facility] [address] [id number] [address] [place] [id number] Jan, Nausea 787.02 and Neuropathy 355.9 [facility] [address] [id number] [address] [place] [id number] Jan, [facility] [address] [id number] [address] [place] [id number] Jan, [facility] [address] [id number] [address] [place] [id number] Jan, [facility] [address] [id number] [address] [place] [id number] Jan, Dental examination V72.2 [facility] [address] [id number] [address] [place] [id number] Jan, [facility] [address] [id number] [address] [place] [id number] Dec, [facility] [address] [id number] [address] [place] [id number] Dec, [facility] [address] [id number] [address] [place] [id number] Dec, Neuropathy 355.9 [facility] [address] [id number] [address] [place] [address], [place] [address] November, [facility] [place] [facility] [address] [id number] [address] [place] [address], [place] [address] November, [facility] [address] [id number] [address] [place] [address], [place] [address] November, [facility] [place] [facility] [address] [id number] [address] [place] [address], [place] [address] Oct, [facility] [address] [id number] [address] [place] [address], [place] [address] Oct, [facility] [place] [facility] [address] [id number] [address] [place] [address], [place] [address] Sep, [facility] [place] [facility] [address] [id number] [address] [place] [address], [place] [address] Sep, [facility] [address] [id number] [address] [place] [address], [place] [address] Sep, [facility] [place] [facility] [address] [id number] [address] [place] [address], [place] [address] Sep, [facility] [place] [facility] [address] [id number] [address] [place] [address], [place] [address] Sep, [facility] [place] [facility] [address] [id number] [address] [place] [address], [place] [address] Sep, [facility] [place] [facility] [address] [id number] [address] [place] [id number] Sep, [facility] [place] [facility] [address] [id number] [address] [place] [address], [place] [address] Sep, [facility] [place] [facility] [address] [id number] [address] [place] [address], [place] [address] Aug, [facility] [place] [facility] [address] [id number] [address] [place] [address], [place] [id number] Aug, [facility] [place] [facility] [address] [id number] [address] [place] [address], [place] [address] Aug, 2014 [facility] [address] [id number] [address] [place] [address], [place] [address] Aug, 2014 [facility] [address] [id number] [address] [place] [address], [place] [address] Aug, 2014 [facility] [address] [id number] [address] [place] [address], [place] [address] Aug, 2014 [facility] [address] [id number] [address] [place] [address], [place] [address] Aug, 2014 [facility] [address] [id number] [address] [place] [address], [place] [address] Aug, 2014 [facility] [address] [id number] [address] [place] [address], [place] [address] Jul, [facility] [address] [id number] [address] [place] [address], [place] [address] Jul, [facility] [address] [id number] [address] [place] [address], [place] [address] Jun, [facility] [address] [id number] [address] [place] [address], [place] [address] Jun, [facility] [address] [id number] [address] [place] [address], [place] [address] Jun, [facility] [address] [id number] [address] [place] [address], [place] [address] Jun, [facility] [address] [id number] [address] [place] [address], [place] [address] Jun, [facility] [address] [id number] [address] [place] [address], [place] [address] Jun, [facility] [address] [id number] [address] [place] [address], [place] [address] Jun, [facility] [address] [id number] [address] [place] [address], [place] [address] Jun, [facility] [place] [facility] [address] [id number] [address] [place] [address], [place] [address] Jun, [facility] [place] [facility] [address] [id number] [address] [place] [address], [place] [address] Jun, [facility] [place] [facility] [address] [id number] [address] [place] [address], [place] [address] Jun, [facility] [place] [facility] [address] [id number] [address] [place] [address], [place] [address] May, [facility] [place] [facility] [address] [id number] [address] [place] [address], [place] [address] May, [facility] [place] [facility] [address] [id number] [address] [place] [address], [place] [address] May, [facility] [place] [facility] [address] [id number] [address] [place] [address], [place] [address] May, [facility] [place] [facility] [address] [id number] [address] [place] [address], [place] [address] May, [facility] [place] [facility] [address] [id number] [address] [place] [address], [place] [address] May, [facility] [place] [facility] [address] [id number] [address] [place] [id number] May, [facility] [place] [facility] [address] [id number] [address] [place] [address], [place] [address] May, [facility] [place] [facility] [address] [id number] [address] [place] [id number] May, [facility] [place] [facility] [address] [id number] [address] [place] [address], [place] [address] Apr, [facility] [place] [facility] [address] [id number] [address] [place] [address], [place] [address] Apr, [facility] [place] [facility] [address] [id number] [address] [place] [address], [place] [address] Apr, [facility] [place] [facility] [address] [id number] [address] [place] [id number] Apr, [facility] [address] [id number] [address] [place] [address], [place] [address] Apr, [facility] [place] [facility] [address] [id number] [address] [place] [address], [place] [address] Mar, [facility] [address] [id number] [address] [place] [address], [place] [address] Mar, [facility] [place] [facility] [address] [id number] [address] [place] [address], [place] [address] Feb, [facility] [address] [id number] [address] [place] [address], [place] [address] Feb, [facility] [address] [id number] [address] [place] [address], [place] [address] Feb, [facility] [address] [id number] [address] [place] [address], [place] [address] Feb, [facility] [address] [id number] [address] [place] [address], [place] [address] Feb, [facility] [address] [id number] [address] [place] [address], [place] [address] Feb, [facility] [address] [id number] [address] [place] [address], [place] [address] Jan, [facility] [place] [facility] [address] [id number] [address] [place] [address], [place] [address] Jan, [facility] [place] [facility] [address] [id number] [address] [place] [address], [place] [address] Jan, [facility] [place] [facility] [address] [id number] [address] [place] [address], [place] [address] Jan, [facility] [place] [facility] [address] [id number] [address] [place] [address], [place] [address] Jan, [facility] [place] [facility] [address] [id number] [address] [place] [address], [place] [address] Jan, [facility] [place] [facility] [address] [id number] [facility] [place] [address] Jan, [facility] [place] [facility] [address] [id number] [facility] [place] [address] Jan, [facility] [place] [facility] [address] [id number] [facility] [place] [address] Jan, [facility] [place] [facility] [address] [id number] [facility] [place] [address] Jan, [facility] [place] [facility] [address] [id number] [facility] [place] [address] Jan, [facility] [place] [facility] [address] [id number] [facility] [place] [address] Dec, [facility] [place] [facility] [address] [id number] [address] [place] [address], [place] [address] Dec, [facility] [place] [facility] [address] [id number] [address] [place] [address], [place] [address] Dec, [facility] [address] [id number] [address] [place] [address], [place] [address] Dec, [facility] [place] [facility] [address] [id number] [address] [place] [address], [place] [address] Dec, [facility] [place] [facility] [address] [id number] [address] [place] [address], [place] [address] Dec, [facility] [place] [facility] [address] [id number] [address] [place] [address], [place] [address] November, [facility] [place] [facility] [address] [id number] [address] [place] [address], [place] [address] November, [facility] [place] [facility] [address] [id number] [address] [place] [address], [place] [address] November, [facility] [place] [facility] [address] [id number] [address] [place] [address], [place] [address] November, [facility] [place] [facility] [address] [id number] [address] [place] [address], [place] [address] November, [facility] [address] [id number] [facility] [place] [address] November, [facility] [address] [id number] [facility] [place] [address] Oct, [facility] [address] [id number] [facility] [place] [address] Oct, [facility] [address] [id number] [address] [place] [address], [place] [address] Oct, [facility] [address] [id number] [address] [place] [address], [place] [address] Oct, [facility] [address] [id number] [address] [place] [address], [place] [address] Sep, [facility] [address] [id number] [address] [place] [address], [place] [address] Sep, [facility] [address] [id number] [address] [place] [address], [place] [address] Sep, [facility] [address] [id number] [address] [place] [address], [place] [address] Sep, [facility] [address] [id number] [address] [place] [address], [place] [address] Sep, [facility] [address] [id number] [address] [place] [address], [place] [address] Aug, [facility] [place] [facility] [address] [id number] [address] [place] [address], [place] [address] Aug, [facility] [address] [id number] [address] [place] [address], [place] [address] Aug, [facility] [address] [id number] [address] [place] [address], [place] [address] Aug, [facility] [address] [id number] [address] [place] [address], [place] [address] 14 Aug, 2013 [facility] [address] [place] [id number] May, [facility] [address] [id number] [address] [place] [address], [place] [address] May, [facility] [address] [id number] [address] [place] [address], [place] [address] May, [facility] [address] [id number] [address] [place] [address], [place] [address] May, [facility] [address] [id number] [address] [place] [address], [place] [address] May, [facility] [address] [id number] [address] [place] [address], [place] [address] Apr, [facility] [address] [id number] [address] [place] [address], [place] [address] Apr, [facility] [address] [id number] [address] [place] [address], [place] [address] Apr, [facility] [address] [id number] [address] [place] [address], [place] [address] Apr, [facility] [address] [id number] [address] [place] [address], [place] [address] Apr, [facility] [address] [id number] [address] [place] [address], [place] [address] Apr, [facility] [address] [id number] [address] [place] [address], [place] [address] Apr, [facility] [address] [id number] [address] [place] [address], [place] [address] 28 Mar, 2013 [facility] [address] [id number] [address] [place] [address], [place] [id number] 25 Mar, 2013 [facility] [address] [id number] [address] [place] [address], [place] [id number] 24 Mar, 2013 [facility] [address] [id number] [address] [place] [address], [place] [id number] 16 Mar, 2013 [facility] [address] [id number] [address] [place] [address], [place] [id number] Mar, [facility] [address] [id number] [address] [place] [address], [place] [address] Mar, [facility] [address] [id number] [address] [place] [address], [place] [address] Feb, [facility] [address] [id number] [address] [place] [address], [place] [id number] Feb, [facility] [address] [id number] [address] [place] [address], [place] [id number] Feb, [facility] [address] [id number] [address] [place] [address], [place] [id number] Feb, [facility] [address] [id number] [address] [place] [address], [place] [address] Feb, [facility] [address] [id number] [address] [place] [address], [place] [address] Feb, [facility] [address] [id number] [address] [place] [address], [place] [id number] Jan, [facility] [address] [id number] [address] [place] [address], [place] [address] Dec, [facility] [address] [id number] [address] [place] [address], [place] [address] Dec, [facility] [address] [id number] [address] [place] [address], [place] [address] Dec, [facility] [address] [id number] [address] [place] [address], [place] [address] Dec, [facility] [address] [id number] [address] [place] [address], [place] [address] Dec, [facility] [address] [id number] [address] [place] [address], [place] [address] Dec, [facility] [address] [id number] [address] [place] [address], [place] [address] 17 Dec, 2012 [facility] [address] [id number] [address] [place] [address], [place] [id number] Dec, [facility] [address] [id number] [address] [place] [address], [place] [address] Dec, [facility] [address] [id number] [address] [place] [address], [place] [address] November, [facility] [address] [id number] [address] [place] [address], [place] [address] November, [facility] [address] [id number] [address] [place] [address], [place] [address] Oct, [facility] [address] [id number] [address] [place] [address], [place] [address] Sep, [facility] [address] [id number] [address] [place] [address], [place] [address] Sep, [facility] [address] [id number] [address] [place] [address], [place] [id number] 15 Sep, 2012 [facility] [address] [id number] [address] [place] [address], [place] [address] Sep, [facility] [address] [id number] [address] [place] [address], [place] [address] Aug, [facility] [address] [id number] [address] [place] [address], [place] [address] Aug, [facility] [address] [id number] [address] [place] [address], [place] [address] Jul, [facility] [address] [id number] [address] [place] [address], [place] [address] Jul, [facility] [address] [id number] [address] [place] [address], [place] [address] Jul, [facility] [address] [id number] [address] [place] [address], [place] [address] Sep, [facility] [address] [id number] [address] [address] Sep, [facility] [address] [facility] [id number] [address] [address] Sep, IMMUNIZATIONS No Known Immunizations SOCIAL HISTORY Never Assessed REASON FOR VISIT EMR-[facility] [place]AN OF CARE VITAL SIGNS MEDICATIONS Unknown [...] bowel obstruction, Dehydration -VC 01/01/17 Hospitalization History [facility]- UTI/Sepsis 01/18/2018 Hospitalization History [facility] - infection 4 days 05/2018
--- OUTSIDE RECORDS SUMMARY | 2020-01-14 23:09 | XMS REPORT ---
Author Author Melvin Hwang Doctor Organization [facility] Address Unknown Phone Unavailable Care Team Providers Care Architectural Representative Name Role Phone Migration, Doctor Unavailable Unavailable PROBLEMS Type Condition ICD9-CM Code BBV40-WK Code Onset Dates Condition S tatus SNOMED Code Problem Primary insomnia F51.01 Active 193 060392 Problem Chronic fatigue, unspecified R53.82 A ctive 900997209 Problem Incontinence of feces, unspecified fecal incontinence type R15.9 Active 21740016 Problem Abdominal pain, left lower quadrant R10.32 Active 200684503 Problem Hypertension, benign I10 Active 05712692 Problem Mood disorder F39 Active 478297 05 Problem Attention to urostomy Z43.6 Active 947775897 Problem 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 430072293 Problem Chronic pain syndrome G89.4 Active 082492622 Problem Hydronephrosis with ureteral stricture, not else where classified N13.1 Active 58546988 Problem Neuropathy G62.9 Active 488371840 Problem Anxiety F41.9 Active 17306605 Problem Polyneuropathy G62.9 Active 31787 000 Problem Malignant neoplasm of colon, unspecified part of colon C18.9 Active 418744233 ALLERGIES No Information ENCOUNTERS Encounter Location Date Diagnosis [facility] [address] [facility] [id number] [address] [place] [address] Oct, [facility] [address] [facility] [id number] [address] [place] [address] Oct, [facility] [address] [facility] [id number] [address] [place] [address] Oct, Neuropathy G62.9 [facility] [address] [facility] [id number] [address] [place] [address] Sep, [facility] [address] [facility] [id number] [address] [place] [address] Sep, Neuropathy G62.9 [facility] [address] [id number] [address] [place] [address] Sep, [facility] [address] [id number] [address] [place] [address] Sep, H/O malignant carcinoid tumo r of rectum Z85.040 and Primary insomnia F51.01 [facility] [address] [id number] [address] [place] [address] Aug, [facility] [address] [id number] [address] [place] [address] Aug, Neuropathy G62.9 [facility] [address] [id number] [address] [place] [address] Aug, [facility] [address] [facility] [id number] [address] [place] [address] Jul, Non-recurrent acute suppurat francine otitis media of left ear without spontaneous rupture of tympanic membrane H66.002 [facility] [address] [id number] [address] [place] [address] Jul, Neuropathy G62.9 [facility] [address] [id number] [address] [place] [address] Jun, [facility] [address] [facility] [id number] [address] [place] [address] Jun, [facility] [address] [id number] [address] [place] [address] Jun, Neuropathy G62.9 [facility] [address] [id number] [address] [place] [address] Jun, [facility] [address] [id number] [address] [place] [address] Jun, [facility] [address] [facility] [id number] [address] [place] [address] Jun, Lumbar neuritis M54.16 [facility] [address] [address] 30 May, 2018 Neuropathy G62.9 [facility] [address] [address] May, [facility] [address] [address] 05 May, 2018 Neuropathy G62.9 and Hyperte nsion, benign I10 [place] [address] [address] 09 Apr, 2018 Polyneuropathy G62.9 and Hyp ertension, benign I10 [place] [address] [address] 17 Mar, 2018 Chronic pain syndrome G89.4 and Hypertension, benign I10 [place] [address] [address] Mar, Polyneuropathy G62.9 and Hyp ertension, benign I10 [facility] [address] [address] Feb, [facility] [address] [address] Feb, Hypertension, benign I10 [place] [address] [address] Feb, Hypertension, benign I10 ; P olyneuropathy G62.9 and Primary insomnia F51.01 [facility] [address] [address] Jan, Hypertension, benign I10 and Polyneuropathy G62.9 [facility] [address] [address] Jan, Hypertension, benign I10 and Neuropathy G62.9 [facility] [address] [address] Jan, [facility] [address] [place] [address] Dec, Polyneuropathy G62.9 [facility] [address] [id number] [address] [place] [address] Dec, Mood disorder F39 [facility] [address] [id number] [address] [place] [address] November, Polyneuropathy G62.9 [facility] [address] [facility] [id number] [address] [place] [address] November, Medicare annual wellness vis it, initial Z00.00 [facility] [address] [facility] [id number] [address] [place] [address] November, Mood disorder F39 [facility] [address] [facility] [id number] [address] [place] [address] Oct, Polyneuropathy G62.9 [facility] [address] [facility] [id number] [address] [place] [address] Oct, [facility] [address] [facility] [id number] [address] [place] [address] Oct, [facility] [address] [facility] [id number] [address] [place] [address] Oct, Mood disorder F39 ; Attentio n to urostomy Z43.6 ; Chronic pain syndrome G89.4 and Polyneuropathy G62.9 [facility] [address] [id number] [address] [place] [address] Sep, Polyneuropathy G62.9 [facility] [address] [facility] [id number] [address] [place] [address] Sep, [facility] [address] [facility] [id number] [address] [place] [address] Sep, Polyneuropathy G62.9 [facility] [address] [facility] [id number] [address] [place] [address] Aug, Polyneuropathy G62.9 [facility] [address] [id number] [address] [place] [address] Aug, Malignant neoplasm of colon, unspecified part of colon C18.9 and Polyneuropathy G62.9 [facility] [address] [facility] [id number] [address] [place] [address] Aug, Neuropathy G62.9 and Polyneu ropathy G62.9 [facility] [address] [facility] [id number] [address] [place] [address] Jul, Encounter for drug screening Z02.83 [facility] [address] [facility] [id number] [address] [place] [address] Jul, Polyneuropathy G62.9 [facility] [address] [facility] [id number] [address] [place] [address] Jul, [facility] [address] [facility] [id number] [address] [place] [address] Jul, Neuropathy G62.9 and Anxiety F41.9 [facility] [address] [facility] [id number] [address] [place] [address] Jul, [facility] [address] [facility] [id number] [address] [place] [address] Jul, [facility] [address] [facility] [id number] [address] [place] [address] Jul, [facility] [address] [facility] [id number] [address] [place] [address] Jul, Polyneuropathy G62.9 [facility] [address] [facility] [id number] [address] [place] [address] Jul, [facility] [address] [facility] [id number] [address] [place] [address] Jun, [facility] [address] [facility] [id number] [address] [place] [address] Jun, [facility] [address] [facility] [id number] [address] [place] [address] Jun, [facility] [address] [id number] [address] [place] [address] Jun, Encounter for dental examina tion Z01.20 [facility] [address] [facility] [id number] [address] [place] [address] Jun, Polyneuropathy G62.9 and Anx iety F41.9 [facility] [address] [facility] [id number] [address] [place] [address] Jun, [facility] [address] [id number] [address] [place] [address] May, Dental examination Z01.20 [facility] [address] [place] [id number] [address] [place] [address] May, Polyneuropathy G62.9 [facility] [address] [place] [id number] [address] [place] [address] Apr, Polyneuropathy G62.9 [facility] [address] [place] [id number] [address] [place] [address] Apr, Polyneuropathy G62.9 [facility] [address] [place] [id number] [address] [place] [address] Apr, Hypertension, benign I10 ; P olyneuropathy G62.9 and Anxiety F41.9 [facility] [address] [facility] [id number] [address] [place] [address] Apr, Primary insomnia F51.01 and Polyneuropathy G62.9 [facility] [address] [facility] [id number] [address] [place] [address] Apr, Primary insomnia F51.01 and Polyneuropathy G62.9 [facility] [address] [facility] [id number] [address] [place] [address] Mar, Primary insomnia F51.01 [facility] [address] [facility] [id number] [address] [place] [address] Mar, [facility] [address] [id number] [address] [place] [address], [place] [address] Mar, Polyneuropathy G62.9 [facility] [address] [id number] [address] [place] [address], [place] [address] Feb, Primary insomnia F51.01 [facility] [address] [id number] [address] [place] [address], [place] [address] Feb, [facility] [address] [id number] [address] [place] [address], [place] [address] Feb, [facility] [address] [id number] [address] [place] [address], [place] [address] Feb, Polyneuropathy G62.9 [facility] [address] [id number] [address] [place] [address], [place] [address] Feb, Primary insomnia F51.01 [facility] [address] [id number] [address] [place] [address] Jan, [facility] [address] [id number] [address] [place] [address], [place] [address] Jan, [facility] [address] [id number] [address] [place] [address] Dec, [facility] [address] [id number] [address] [place] [address] Dec, Primary insomnia F51.01 [facility] [address] [id number] [address] [place] [address] Dec, Primary insomnia F51.01 [facility] [address] [id number] [address] [place] [address] Dec, [facility] [address] [id number] [address] [place] [address] Dec, [facility] [address] [id number] [address] [place] [address] Dec, [facility] [address] [id number] [address] [place] [address] Dec, [facility] [address] [id number] [address] [place] [address] November, Primary insomnia F51.01 and Polyneuropathy G62.9 [facility] [address] [id number] [address] [place] [address] November, [facility] [address] [id number] [address] [place] [address] November, Abdominal pain, left lower q uadrant R10.32 [facility] [address] [id number] [address] [place] [address] November, [facility] [address] [id number] [address] [place] [address] Oct, [facility] [address] [facility] [id number] [address] [place] [address] Oct, Abdominal pain, left lower q uadrant R10.32 ; H/O malignant carcinoid tumor of rectum Z85.040 and Neuropathy G62.9 [facility] [address] [id number] [address] [place] [address] Oct, [facility] [address] [facility] [id number] [address] [place] [address] Sep, [facility] [id number] [place] [id number] Sep, [facility] [address] [facility] [id number] [address] [place] [address] Sep, [facility] [address] [facility] [id number] [address] [place] [address] Aug, [facility] [address] [facility] [id number] [address] [place] [address] Aug, [facility] [address] [facility] [id number] [address] [place] [address] Aug, Abdominal pain, left lower q uadrant R10.32 ; Neuropathy G62.9 and Anxiety F41.9 [facility] [address] [place] [address] Jul, [facility] [address] [id number] [address] [place] [address] Jul, [facility] [address] [id number] [address] [place] [address] Jul, [facility] [address] [id number] [address] [place] [address] Jul, [facility] [address] [id number] [address] [place] [address] Jul, [facility] [address] [id number] [address] [place] [address] Jun, [facility] [address] [id number] [address] [place] [address] May, [facility] [address] [id number] [address] [place] [address] May, [facility] [address] [id number] [address] [place] [address] Apr, [facility] [address] [id number] [address] [place] [address] Apr, Muscle spasms of both lower extremities M62.838 and Cellulitis, unspecified cellulitis site L03.90 [facility] [address] [id number] [address] [place] [address] Apr, [facility] [address] [id number] [address] [place] [address] 23 Mar, 2016 Generalized abdominal pain R 10.84 [facility] [address] [id number] [address] [place] [address] 20 Mar, 2016 [facility] [address] [id number] [address] [place] [address] 14 Mar, 2016 [facility] [address] [id number] [address] [place] [address] 14 Mar, 2016 [facility] [address] [id number] [address] [place] [address] 13 Mar, 2016 [facility] [address] [id number] [address] [place] [address] 12 Mar, 2016 [facility] [address] [id number] [address] [place] [address] 09 Mar, 2016 [facility] [address] [id number] [address] [place] [address] 06 Mar, 2016 [facility] [address] [id number] [address] [place] [address] Feb, Other specified diseases of anus and rectum K62.89 [facility] [address] [id number] [address] [place] [address] Feb, [facility] [address] [id number] [address] [place] [address] Feb, Dizziness R42 [facility] [address] [id number] [address] [place] [address] Feb, [facility] [address] [id number] [address] [place] [address] Jan, Polyneuropathy G62.9 [facility] [address] [id number] [address] [place] [address] Jan, Other specified diseases of anus and rectum K62.89 [facility] [address] [id number] [address] [place] [address] Jan, [facility] [address] [id number] [address] [place] [address] 16 Jan, 2016 [facility] [address] [id number] [address] [place] [address] Jan, [facility] [place] [facility] [address] [id number] [address] [place] [address], [place] [address] 07 Jan, 2016 Dizziness R42 [facility] [address] [id number] [address] [place] [address], [place] [address] Dec, [facility] [address] [id number] [address] [place] [address], [place] [address] Dec, [facility] [address] [id number] [address] [place] [address], [place] [address] Dec, [facility] [address] [id number] [address] [place] [address], [place] [address] Dec, Dizziness R42 [facility] [address] [id number] [address] [place] [address], [place] [address] November, [facility] [address] [id number] [address] [place] [address], [place] [address] Oct, [facility] [address] [id number] [address] [place] [address], [place] [address] Oct, [facility] [address] [id number] [address] [place] [address], [place] [address] Oct, [facility] [address] [id number] [address] [place] [address], [place] [address] Oct, [facility] [address] [id number] [address] [place] [address], [place] [address] Sep, [facility] [address] [id number] [address] [place] [address], [place] [address] Sep, Primary insomnia F51.01 [facility] [address] [id number] [address] [place] [address], [place] [address] Sep, Primary insomnia F51.01 [facility] [address] [id number] [address] [place] [address], [place] [address] Sep, [facility] [address] [id number] [address] [place] [address], [place] [address] Aug, [facility] [address] [address] Aug, [facility] [address] [address] Aug, Primary insomnia F51.01 ; Mo od disorder F39 ; Nausea and vomiting, unspecified intactability, vomiting of unspecified type R11.2 and Diarrhea R19.7 [facility] [address] [address] Aug, [facility] [address] [address] Aug, Folliculitis L73.9 [facility] [address] [address] Aug, [facility] [address] [address] Aug, [facility] [address] [address] Jul, Folliculitis L73.9 [facility] [address] [address] Jul, [facility] [address] [address] Jun, Folliculitis L73.9 [facility] [address] [address] Jun, [facility] [address] [address] May, Polyneuropathy G62.9 [facility] [address] [id number] May, Other specified diseases of anus and rectum K62.89 [facility] [address] [place] [id number] [address] [place] [address] May, [facility] [id number] [place] [address] 13 May, 2015 Primary insomnia F51.01 [facility] [address] [facility] [id number] [address] [place] [address] May, [facility] [address] [facility] [id number] [address] [place] [address] May, [facility] [address] [facility] [id number] [address] [place] [address] Apr, Other specified diseases of anus and rectum K62.89 ; Chronic fatigue R53.82 ; Urinary tract infection, site not specified N39.0 and Enterococcus as the cause of diseases classified elsewhere B95.2 [facility] [address] [id number] [address] [place] [id number] 16 Apr, 2015 [facility] [address] [facility] [id number] [address] [place] [id number] 15 Apr, 2015 [facility] [address] [facility] [id number] [address] [place] [id number] 14 Apr, 2015 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 [facility] [address] [facility] [id number] [address] [place] [id number] 05 Apr, 2015 [facility] [address] [facility] [id number] [address] [place] [id number] 26 Mar, 2015 [facility] [address] [facility] [id number] [address] [place] [id number] 23 Mar, 2015 [facility] [address] [id number] [address] [place] [id number] 17 Mar, 2015 [facility] [address] [id number] [address] [place] [id number] 14 Mar, 2015 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 [facility] [address] [id number] [address] [place] [id number] 12 Mar, 2015 [facility] [address] [facility] [id number] [address] [place] [id number] Mar, [facility] [address] [id number] [address] [place] [id number] Mar, [facility] [address] [id number] [address] [place] [id number] Mar, [facility] [address] [id number] [address] [place] [id number] Feb, [facility] [address] [id number] [address] [place] [id number] Feb, [facility] [address] [id number] [address] [place] [id number] Feb, [facility] [address] [id number] [address] [place] [id number] Jan, [facility] [address] [id number] [address] [place] [id number] Jan, Nausea 787.02 and Neuropathy 355.9 [facility] [address] [id number] [address] [place] [id number] Jan, [facility] [address] [id number] [address] [place] [id number] Jan, [facility] [address] [id number] [address] [place] [id number] Jan, [facility] [address] [id number] [address] [place] [address] [id number] Jan, Dental examination V72.2 [facility] [address] [id number] [address] [place] [address] Jan, [facility] [address] [id number] [address] [place] [address] Dec, [facility] [address] [id number] [address] [place] [address] Dec, [facility] [address] [id number] [address] [place] [address] Dec, Neuropathy 355.9 [facility] [address] [id number] [address] [place] [address], [place] [address] November, [facility] [address] [id number] [address] [place] [address], [place] [address] November, [facility] [address] [id number] [address] [place] [address], [place] [address] November, [facility] [address] [id number] [address] [place] [address], [place] [address] Oct, [facility] [address] [id number] [address] [place] [address], [place] [address] Oct, [facility] [address] [id number] [address] [place] [address], [place] [address] Sep, [facility] [address] [id number] [address] [place] [address], [place] [address] Sep, [facility] [address] [id number] [address] [place] [address], [place] [address] Sep, [facility] [address] [id number] [address] [place] [address], [place] [address] Sep, [facility] [address] [id number] [address] [place] [address], [place] [address] Sep, [facility] [address] [id number] [address] [place] [address], [place] [address] Sep, [facility] [address] [id number] [address] [place] [address] Sep, [facility] [address] [id number] [address] [place] [address], [place] [address] Sep, [facility] [address] [id number] [address] [place] [address], [place] [address] Aug, [facility] [address] [id number] [address] [place] [address], [place] [address] Aug, [facility] [address] [id number] [address] [place] [address], [place] [address] Aug, 2014 [facility] [address] [id number] [address] [place] [address], [place] [address] Aug, 2014 [facility] [address] [id number] [address] [place] [address], [place] [address] Aug, 2014 [facility] [address] [id number] [address] [place] [address], [place] [address] Aug, 2014 [facility] [address] [id number] [address] [place] [address], [place] [address] Aug, 2014 [facility] [address] [id number] [address] [place] [address], [place] [address] Aug, 2014 [facility] [address] [id number] [address] [place] [address], [place] [address] Jul, [facility] [address] [id number] [address] [place] [address], [place] [address] Jul, [facility] [address] [id number] [address] [place] [address], [place] [address] Jun, [facility] [address] [id number] [address] [place] [address], [place] [address] Jun, [facility] [address] [id number] [address] [place] [address], [place] [address] Jun, [facility] [address] [id number] [address] [place] [address], [place] [address] Jun, [facility] [address] [id number] [address] [place] [address], [place] [address] Jun, [facility] [address] [id number] [address] [place] [address], [place] [address] Jun, [facility] [address] [id number] [address] [place] [address], [place] [address] Jun, [facility] [address] [id number] [address] [place] [address], [place] [address] Jun, [facility] [address] [id number] [address] [place] [address], [place] [address] Jun, [facility] [address] [id number] [address] [place] [address], [place] [address] Jun, [facility] [address] [id number] [address] [place] [address], [place] [address] Jun, [facility] [address] [id number] [address] [place] [address], [place] [address] May, [facility] [address] [id number] [address] [place] [address], [place] [address] May, [facility] [address] [id number] [address] [place] [address], [place] [address] May, [facility] [address] [id number] [address] [place] [address], [place] [address] May, [facility] [address] [id number] [address] [place] [address], [place] [address] May, [facility] [address] [id number] [address] [place] [address], [place] [address] May, [facility] [address] [id number] [address] [place] [address] May, [facility] [address] [id number] [address] [place] [address], [place] [address] May, [facility] [address] [id number] [address] [place] [address] May, [facility] [address] [id number] [address] [place] [address], [place] [address] Apr, [facility] [address] [id number] [address] [place] [address], [place] [address] Apr, [facility] [address] [id number] [address] [place] [address], [place] [address] Apr, [facility] [address] [id number] [address] [place] [address] Apr, [facility] [address] [id number] [address] [place] [address], [place] [address] Apr, [facility] [address] [id number] [address] [place] [address], [place] [address] Mar, [facility] [address] [id number] [address] [place] [address], [place] [address] Mar, [facility] [address] [id number] [address] [place] [address], [place] [address] Feb, [facility] [address] [id number] [address] [place] [address], [place] [address] Feb, [facility] [address] [id number] [address] [place] [address], [place] [address] Feb, [facility] [address] [id number] [address] [place] [address], [place] [address] Feb, [facility] [address] [id number] [address] [place] [address], [place] [address] Feb, [facility] [address] [id number] [address] [place] [address], [place] [address] Feb, [facility] [address] [id number] [address] [place] [address], [place] [address] Jan, [facility] [address] [id number] [address] [place] [address], [place] [address] Jan, [facility] [address] [id number] [address] [place] [address], [place] [address] Jan, [facility] [address] [id number] [address] [place] [address], [place] [address] Jan, [facility] [address] [id number] [address] [place] [address], [place] [address] Jan, [facility] [address] [id number] [address] [place] [address], [place] [address] Jan, [facility] [address] [id number] [facility] [place] [address] Jan, [facility] [address] [id number] [facility] [place] [address] Jan, [facility] [address] [id number] [facility] [place] [address] Jan, [facility] [address] [id number] [facility] [place] [address] Jan, [facility] [address] [id number] [facility] [place] [address] Jan, [facility] [address] [id number] [facility] [place] [address] Dec, [facility] [address] [id number] [address] [place] [address], [place] [address] Dec, [facility] [address] [id number] [address] [place] [address], [place] [address] Dec, [facility] [address] [id number] [address] [place] [address], [place] [address] Dec, [facility] [address] [id number] [address] [place] [address], [place] [address] Dec, [facility] [address] [id number] [address] [place] [address], [place] [address] Dec, [facility] [address] [id number] [address] [place] [address], [place] [address] November, [facility] [address] [id number] [address] [place] [address], [place] [address] November, [facility] [address] [id number] [address] [place] [address], [place] [address] November, [facility] [address] [id number] [address] [place] [address], [place] [address] November, [facility] [address] [id number] [address] [place] [address], [place] [address] November, [facility] [address] [id number] [facility] [place] [address] November, [facility] [address] [id number] [facility] [place] [address] Oct, [facility] [address] [id number] [facility] [place] [address] Oct, [facility] [address] [id number] [address] [place] [address], [place] [address] Oct, [facility] [address] [id number] [address] [place] [address], [place] [address] Oct, [facility] [address] [id number] [address] [place] [address], [place] [address] Sep, [facility] [address] [id number] [address] [place] [address], [place] [address] Sep, [facility] [address] [id number] [address] [place] [address], [place] [address] Sep, [facility] [address] [id number] [address] [place] [address], [place] [address] Sep, [facility] [address] [id number] [address] [place] [address], [place] [address] Sep, [facility] [address] [id number] [address] [place] [address], [place] [address] Aug, [facility] [address] [id number] [address] [place] [address], [place] [address] Aug, [facility] [address] [id number] [address] [place] [address], [place] [address] Aug, [facility] [address] [id number] [address] [place] [address], [place] [address] Aug, [facility] [address] [id number] [address] [place] [address], [place] [address] 14 Aug, 2013 [facility] [address] [place] [id number] May, [facility] [address] [id number] [address] [place] [address], [place] [address] May, [facility] [address] [id number] [address] [place] [address], [place] [address] May, [facility] [address] [id number] [address] [place] [address], [place] [address] May, [facility] [address] [id number] [address] [place] [address], [place] [address] May, [facility] [address] [id number] [address] [place] [address], [place] [address] Apr, [facility] [address] [id number] [address] [place] [address], [place] [address] Apr, [facility] [address] [id number] [address] [place] [address], [place] [address] Apr, [facility] [address] [id number] [address] [place] [address], [place] [address] Apr, [facility] [address] [id number] [address] [place] [address], [place] [address] Apr, [facility] [address] [id number] [address] [place] [address], [place] [address] Apr, [facility] [address] [id number] [address] [place] [address], [place] [address] Apr, [facility] [address] [id number] [address] [place] [address], [place] [address] 28 Mar, 2013 [facility] [address] [id number] [address] [place] [address], [place] [address] 25 Mar, 2013 [facility] [address] [id number] [address] [place] [address], [place] [address] 24 Mar, 2013 [facility] [address] [id number] [address] [place] [address], [place] [address] 16 Mar, 2013 [facility] [address] [id number] [address] [place] [address], [place] [address] Mar, [facility] [address] [id number] [address] [place] [address], [place] [address] Mar, [facility] [address] [id number] [address] [place] [address], [place] [address] Feb, [facility] [address] [id number] [address] [place] [address], [place] [address] Feb, [facility] [address] [id number] [address] [place] [address], [place] [address] Feb, [facility] [address] [id number] [address] [place] [address], [place] [address] Feb, [facility] [address] [id number] [address] [place] [address], [place] [address] Feb, [facility] [address] [id number] [address] [place] [address], [place] [address] Feb, [facility] [address] [id number] [address] [place] [address], [place] [address] Jan, [facility] [address] [id number] [address] [place] [address], [place] [address] Dec, [facility] [address] [id number] [address] [place] [address], [place] [address] Dec, [facility] [address] [id number] [address] [place] [address], [place] [address] Dec, [facility] [address] [id number] [address] [place] [address], [place] [address] Dec, [facility] [address] [id number] [address] [place] [address], [place] [address] Dec, [facility] [address] [id number] [address] [place] [address], [place] [address] Dec, [facility] [address] [id number] [address] [place] [address], [place] [address] 17 Dec, 2012 [facility] [address] [id number] [address] [place] [address], [place] [address] Dec, [facility] [address] [id number] [address] [place] [address], [place] [address] Dec, [facility] [address] [id number] [address] [place] [address], [place] [address] November, [facility] [address] [id number] [address] [place] [address], [place] [address] November, [facility] [address] [id number] [address] [place] [address], [place] [address] Oct, [facility] [address] [id number] [address] [place] [address], [place] [address] Sep, [facility] [address] [id number] [address] [place] [address], [place] [address] Sep, [facility] [address] [id number] [address] [place] [address], [place] [address] 15 Sep, 2012 [facility] [address] [id number] [address] [place] [address], [place] [address] Sep, [facility] [address] [id number] [address] [place] [address], [place] [address] Aug, [facility] [address] [id number] [address] [place] [address], [place] [address] Aug, [facility] [address] [id number] [address] [place] [address], [place] [address] Jul, [facility] [address] [id number] [address] [place] [address], [place] [address] Jul, [facility] [address] [id number] [address] [place] [address], [place] [address] Jul, [facility] [address] [id number] [address] [place] [address], [place] [address] Sep, [facility] [address] [id number] [address] [address] Sep, [facility] [address] [facility] [id number] [address] [address] Sep, IMMUNIZATIONS No Known Immunizations SOCIAL HISTORY Never Assessed REASON FOR VISIT EMR-[facility] PLAN OF CARE VITAL SIGNS MEDICATIONS Unknown [...] bowel obstruction, Dehydration -VC 01/01/17 Hospitalization History [facility]- UTI/Sepsis 01/18/2018 Hospitalization History [facility] - infection 4 days 05/2018
--- OUTSIDE RECORDS SUMMARY | 2020-01-14 23:10 | XMS REPORT ---
Author Author Melvin Hwang Doctor Organization [facility] Address Unknown Phone Unavailable Care Team Providers Care Size Cutter Name Role Phone Migration, Doctor Unavailable Unavailable PROBLEMS Type Condition ICD9-CM Code [id number] Code Onset Dates Condition S tatus SNOMED Code Problem Primary insomnia F51.01 Active 193 370580 Problem Chronic fatigue, unspecified R53.82 A ctive 000688544 Problem Incontinence of feces, unspecified fecal incontinence type R15.9 Active 81315272 Problem Abdominal pain, left lower quadrant R10.32 Active 459538181 Problem Hypertension, benign I10 Active 26539496 Problem Mood disorder F39 Active 283108 05 Problem Attention to urostomy Z43.6 Active 651401797 Problem 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 237650643 Problem Chronic pain syndrome G89.4 Active 851996798 Problem Hydronephrosis with ureteral stricture, not else where classified N13.1 Active 43058653 Problem Neuropathy G62.9 Active 289387592 Problem Anxiety F41.9 Active 28472011 Problem Polyneuropathy G62.9 Active 22663 000 Problem Malignant neoplasm of colon, unspecified part of colon C18.9 Active 336637230 ALLERGIES No Information ENCOUNTERS Encounter Location Date Diagnosis [place] [address] [facility] [id number] [address] [place] [phone] Oct, Neuropathy G62.9 [facility] [address] [facility] [id number] [address] [place] [phone] Sep, [facility] [address] [facility] [id number] [address] [place] [phone] Sep, Neuropathy G62.9 [facility] [address] [facility] [id number] [address] [place] [phone] Sep, [facility] [address] [facility] [id number] [address] [place] [address] Sep, H/O malignant carcinoid tumo r of rectum Z85.040 and Primary insomnia F51.01 [facility] [address] [id number] [address] [place] [address] Aug, [facility] [address] [id number] [address] [place] [address] Aug, Neuropathy G62.9 [facility] [address] [id number] [address] [place] [phone] Aug, [facility] [address] [id number] [address] [place] [phone] Jul, Non-recurrent acute suppurat francine otitis media of left ear without spontaneous rupture of tympanic membrane H66.002 [facility] [address] [id number] [address] [place] [phone] Jul, Neuropathy G62.9 [facility] [address] [id number] [address] [place] [address] Jun, [facility] [address] [id number] [address] [place] [phone] Jun, [facility] [address] [facility] [id number] [address] [place] [address] Jun, Neuropathy G62.9 [facility] [address] [facility] [id number] [address] [place] [phone] Jun, [facility] [address] [facility] [id number] [address] [place] [phone] Jun, [facility] [address] [facility] [id number] [address] [place] [address] Jun, Lumbar neuritis M54.16 [facility] [address] [facility] [id number] [address] [place] [phone] May, Neuropathy G62.9 [facility] [address] [facility] [id number] [address] [place] [address] May, [facility] [address] [place] [id number] [address] [place] [phone] 05 May, 2018 Neuropathy G62.9 and Hyperte nsion, benign I10 [facility] [address] [facility] [id number] [address] [place] [address] 09 Apr, 2018 Polyneuropathy G62.9 and Hyp ertension, benign I10 [place] [address] [place] [id number] [address] [place] [phone] 17 Mar, 2018 Chronic pain syndrome G89.4 and Hypertension, benign I10 [place] [address] [place] [id number] [address] [place] [phone] 11 Mar, 2018 Polyneuropathy G62.9 and Hyp ertension, benign I10 [place] [address] [place] [id number] [address] [place] [phone] 27 Feb, 2018 [place] [address] [address] Feb, Hypertension, benign I10 [place] [address] [place] [id number] [address] [place] [phone] 15 Feb, 2018 Hypertension, benign I10 ; P olyneuropathy G62.9 and Primary insomnia F51.01 [facility] [address] [place] [id number] [address] [place] [phone] Jan, Hypertension, benign I10 and Polyneuropathy G62.9 [place] [address] [place] [id number] [address] [place] [address] Jan, Hypertension, benign I10 and Neuropathy G62.9 [facility] [address] [facility] [id number] [address] [place] [phone] Jan, [place] [address] [place] [id number] [address] [place] [phone] Dec, Polyneuropathy G62.9 [facility] [address] [place] [id number] [address] [place] [address] 14 Dec, 2017 Mood disorder F39 [place] [address] [id number] [address] [place] [address] November, Polyneuropathy G62.9 [facility] [address] [facility] [id number] [address] [place] [address] November, Medicare annual wellness vis it, initial Z00.00 [facility] [address] [id number] [address] [place] [address] November, Mood disorder F39 [facility] [address] [id number] [address] [place] [address] Oct, Polyneuropathy G62.9 [facility] [address] [id number] [address] [place] [phone] Oct, [facility] [address] [id number] [address] [place] [phone] Oct, [facility] [address] [facility] [id number] [address] [place] [phone] Oct, Mood disorder F39 ; Attentio n to urostomy Z43.6 ; Chronic pain syndrome G89.4 and Polyneuropathy G62.9 [facility] [address] [id number] [address] [place] [phone] Sep, Polyneuropathy G62.9 [facility] [address] [id number] [address] [place] [phone] Sep, [facility] [address] [id number] [address] [place] [phone] Sep, Polyneuropathy G62.9 [facility] [address] [id number] [address] [place] [phone] Aug, Polyneuropathy G62.9 [facility] [address] [facility] [id number] [address] [place] [phone] Aug, Malignant neoplasm of colon, unspecified part of colon C18.9 and Polyneuropathy G62.9 [facility] [address] [id number] [address] [place] [phone] Aug, Neuropathy G62.9 and Polyneu ropathy G62.9 [facility] [address] [facility] [id number] [address] [place] [address] Jul, Encounter for drug screening Z02.83 [facility] [address] [facility] [id number] [address] [place] [phone] Jul, Polyneuropathy G62.9 [facility] [address] [facility] [id number] [address] [place] [phone] Jul, [facility] [address] [facility] [id number] [address] [place] [phone] Jul, Neuropathy G62.9 and Anxiety F41.9 [facility] [address] [facility] [id number] [address] [place] [phone] Jul, [facility] [address] [facility] [id number] [address] [place] [phone] Jul, [facility] [address] [facility] [id number] [address] [place] [phone] Jul, [facility] [address] [facility] [id number] [address] [place] [phone] Jul, Polyneuropathy G62.9 [facility] [address] [facility] [id number] [address] [place] [phone] Jul, [facility] [address] [facility] [id number] [address] [place] [phone] Jun, [facility] [address] [facility] [id number] [address] [place] [phone] Jun, [facility] [address] [facility] [id number] [address] [place] [phone] Jun, [facility] [address] [id number] [address] [address] 07 Jun, 2017 Encounter for dental examina tion Z01.20 [facility] [address] [facility] [id number] [address] [place] [phone] Jun, Polyneuropathy G62.9 and Anx iety F41.9 [facility] [address] [facility] [id number] [address] [place] [address] Jun, [facility] [address] [id number] [address] [place] [address] May, Dental examination Z01.20 [facility] [address] [place] [id number] [address] [place] [phone] May, Polyneuropathy G62.9 [facility] [address] [place] [id number] [address] [place] [address] Apr, Polyneuropathy G62.9 [facility] [address] [place] [id number] [address] [place] [phone] Apr, Polyneuropathy G62.9 [facility] [address] [place] [id number] [address] [place] [address] Apr, Hypertension, benign I10 ; P olyneuropathy G62.9 and Anxiety F41.9 [facility] [address] [place] [id number] [address] [place] [address] Apr, Primary insomnia F51.01 and Polyneuropathy G62.9 [facility] [address] [place] [id number] [address] [place] [address] Apr, Primary insomnia F51.01 and Polyneuropathy G62.9 [facility] [address] [facility] [id number] [address] [place] [phone] Mar, Primary insomnia F51.01 [facility] [address] [place] [id number] [address] [place] [address] Mar, [facility] [address] [facility] [id number] [address] [place] [phone] Mar, Polyneuropathy G62.9 [facility] [address] [place] [id number] [address] [place] [address], [place] [address] Feb, Primary insomnia F51.01 [facility] [address] [id number] [address] [place] [address], [place] [address] Feb, [facility] [address] [id number] [address] [place] [address], [place] [address] Feb, [facility] [address] [id number] [address] [place] [address], [place] [address] Feb, Polyneuropathy G62.9 [facility] [address] [id number] [address] [place] [address], [place] [address] Feb, Primary insomnia F51.01 [facility] [address] [id number] [address] [place] [address], [place] [address] Jan, [facility] [address] [id number] [address] [place] [address], [place] [address] Jan, [facility] [address] [id number] [address] [place] [address], [place] [address] Dec, [facility] [address] [id number] [address] [place] [address], [place] [address] Dec, Primary insomnia F51.01 [facility] [address] [id number] [address] [place] [address], [place] [address] Dec, Primary insomnia F51.01 [facility] [address] [id number] [address] [place] [address], [place] [address] Dec, [facility] [address] [id number] [address] [place] [address], [place] [address] Dec, [facility] [address] [id number] [address] [place] [address], [place] [address] Dec, [facility] [address] [id number] [address] [place] [address], [place] [address] Dec, [facility] [address] [id number] [address] [place] [address], [place] [address] November, Primary insomnia F51.01 and Polyneuropathy G62.9 [facility] [address] [facility] [id number] [address] [place] [phone] November, [facility] [address] [facility] [id number] [address] [place] [address] November, Abdominal pain, left lower q uadrant R10.32 [facility] [address] [place] [id number] [address] [place] [address] November, [facility] [address] [facility] [id number] [address] [place] [address] Oct, [facility] [address] [facility] [id number] [address] [place] [address] Oct, Abdominal pain, left lower q uadrant R10.32 ; H/O malignant carcinoid tumor of rectum Z85.040 and Neuropathy G62.9 [facility] [address] [place] [id number] [address] [place] [address] Oct, [facility] [address] [place] [id number] [address] [place] [phone] Sep, [facility] [address] [place] [id number] [place] [id number] Sep, [facility] [address] [place] [id number] [address] [place] [address] Sep, [facility] [address] [place] [id number] [address] [place] [phone] Aug, [facility] [address] [facility] [id number] [address] [place] [address] Aug, [facility] [address] [place] [id number] [address] [place] [address] Aug, Abdominal pain, left lower q uadrant R10.32 ; Neuropathy G62.9 and Anxiety F41.9 [facility] [address] [place] [address] Jul, [facility] [address] [id number] [address] [place] [phone] Jul, [facility] [address] [id number] [address] [place] [address] Jul, [facility] [address] [id number] [address] [place] [address] Jul, [facility] [address] [id number] [address] [place] [address] Jul, [facility] [address] [id number] [address] [place] [address] Jun, [facility] [address] [id number] [address] [place] [address] May, [facility] [address] [id number] [address] [place] [address] May, [facility] [address] [id number] [address] [place] [address] Apr, [facility] [address] [id number] [address] [place] [address] Apr, Muscle spasms of both lower extremities M62.838 and Cellulitis, unspecified cellulitis site L03.90 [facility] [address] [id number] [address] [place] [address] Apr, [facility] [address] [id number] [address] [place] [address] 23 Mar, 2016 Generalized abdominal pain R 10.84 [facility] [address] [id number] [address] [place] [address] 20 Mar, 2016 [facility] [address] [id number] [address] [place] [address] 14 Mar, 2016 [facility] [address] [id number] [address] [place] [address] 14 Mar, 2016 [facility] [address] [id number] [address] [place] [address] 13 Mar, 2016 [facility] [address] [id number] [address] [place] [address], [place] [address] 12 Mar, 2016 [facility] [address] [id number] [address] [place] [address], [place] [address] Mar, [facility] [address] [id number] [address] [place] [address] Mar, [facility] [address] [id number] [address] [place] [phone] Feb, Other specified diseases of anus and rectum K62.89 [facility] [address] [id number] [address] [place] [address] Feb, [facility] [address] [id number] [address] [place] [address] Feb, Dizziness R42 [facility] [address] [id number] [address] [place] [phone] Feb, [facility] [address] [id number] [address] [place] [address] Jan, Polyneuropathy G62.9 [facility] [address] [id number] [address] [place] [address] Jan, Other specified diseases of anus and rectum K62.89 [facility] [address] [id number] [address] [place] [address] Jan, [facility] [address] [id number] [address] [place] [address] Jan, [facility] [address] [id number] [address] [place] [phone] Jan, [facility] [address] [id number] [address] [place] [phone] Jan, Dizziness R42 [facility] [address] [id number] [address] [place] [address] Dec, [facility] [address] [id number] [address] [place] [address], [place] [address] Dec, [facility] [address] [id number] [address] [place] [address], [place] [address] Dec, [facility] [address] [id number] [address] [place] [address], [place] [address] Dec, Dizziness R42 [facility] [address] [id number] [address] [place] [address], [place] [address] November, [facility] [address] [id number] [address] [place] [address], [place] [address] Oct, [facility] [address] [id number] [address] [place] [address], [place] [address] Oct, [facility] [address] [id number] [address] [place] [address], [place] [address] Oct, [facility] [address] [id number] [address] [place] [address], [place] [address] Oct, [facility] [address] [id number] [address] [place] [address], [place] [address] Sep, [facility] [address] [id number] [address] [place] [address] Sep, Primary insomnia F51.01 [facility] [address] [id number] [address] [place] [phone] Sep, Primary insomnia F51.01 [facility] [address] [id number] [address] [place] [phone] Sep, [facility] [address] [id number] [address] [place] [address], [place] [address] Aug, [facility] [address] [id number] [address] [place] [phone] Aug, [facility] [address] [id number] [address] [place] [address] Aug, Primary insomnia F51.01 ; Mo od disorder F39 ; Nausea and vomiting, unspecified intactability, vomiting of unspecified type R11.2 and Diarrhea R19.7 [facility] [address] [id number] 15 Aug, 2015 [facility] [address] [id number] Aug, Folliculitis L73.9 [facility] [address] [id number] Aug, [facility] [address] [id number] Aug, [facility] [address] [address] Jul, Folliculitis L73.9 [facility] [address] [id number] Jul, [facility] [address] [id number] Jun, Folliculitis L73.9 [facility] [address] [id number] Jun, [facility] [address] [address] May, Polyneuropathy G62.9 [facility] [address] [address] May, Other specified diseases of anus and rectum K62.89 [facility] [address] [address] May, [facility] [address] [address] May, Primary insomnia F51.01 [facility] [address] [id number] May, [facility] [address] [id number] [address] [place] [id number] May, [facility] [address] [id number] [address] [place] [id number] Apr, Other specified diseases of anus and rectum K62.89 ; Chronic fatigue R53.82 ; Urinary tract infection, site not specified N39.0 and Enterococcus as the cause of diseases classified elsewhere B95.2 [facility] [address] [id number] [address] [place] [phone] 16 Apr, 2015 [facility] [address] [id number] [address] [place] [id number] 15 Apr, 2015 [facility] [address] [id number] [address] [place] [id number] Apr, 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 [facility] [address] [id number] [address] [place] [phone] 05 Apr, 2015 [facility] [address] [id number] [address] [place] [id number] 26 Mar, 2015 [facility] [address] [id number] [address] [place] [phone] 23 Mar, 2015 [facility] [address] [id number] [address] [place] [id number] 17 Mar, 2015 [facility] [address] [id number] [address] [place] [phone] 14 Mar, 2015 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 [facility] [address] [id number] [address] [place] [phone] 12 Mar, 2015 [facility] [address] [id number] [address] [place] [phone] 11 Mar, 2015 [facility] [address] [id number] [address] [place] [id number] 11 Mar, 2015 [facility] [address] [id number] [address] [place] [phone] Mar, [facility] [address] [id number] [address] [place] [phone] Feb, [facility] [address] [id number] [address] [place] [id number] Feb, [facility] [address] [id number] [address] [place] [id number] Feb, [facility] [address] [id number] 74 [place] [id number] Jan, [facility] [address] [id number] [address] [place] [phone] Jan, Nausea 787.02 and Neuropathy 355.9 [facility] [address] [id number] [address] [place] [phone] Jan, [facility] [address] [id number] [address] [place] [id number] Jan, [facility] [address] [id number] [address] [place] [id number] Jan, [facility] [address] [id number] [address] [place] [id number] Jan, Dental examination V72.2 [facility] [address] [id number] [address] [place] [phone] Jan, [facility] [address] [id number] [address] [place] [id number] Dec, [facility] [address] [id number] [address] [place] [phone] Dec, [facility] [address] [id number] [address] [place] [phone] Dec, Neuropathy 355.9 [facility] [address] [id number] [address] [place] [phone] November, [facility] [address] [id number] [address] [place] [id number] November, [facility] [address] [id number] [address] [place] [address], [place] [address] November, [facility] [address] [id number] [address] [place] [address], [place] [address] Oct, [facility] [address] [id number] [address] [place] [address], [place] [address] Oct, [facility] [address] [id number] [address] [place] [address], [place] [address] Sep, [facility] [address] [id number] [address] [place] [address], [place] [address] Sep, [facility] [address] [id number] [address] [place] [address], [place] [address] Sep, [facility] [address] [id number] [address] [place] [address], [place] [address] Sep, [facility] [address] [id number] [address] [place] [address], [place] [address] Sep, [facility] [address] [id number] [address] [place] [address], [place] [address] Sep, [facility] [address] [id number] [address] [place] [address], [place] [address] Sep, [facility] [address] [id number] [address] [place] [address], [place] [address] Sep, [facility] [address] [id number] [address] [place] [address], [place] [address] Aug, [facility] [address] [id number] [address] [place] [address], [place] [address] Aug, [facility] [address] [id number] [address] [place] [address], [place] [address] Aug, [facility] [address] [id number] [address] [place] [address], [place] [address] Aug, [facility] [address] [id number] [address] [place] [address], [place] [id number] 02 Aug, 2014 [facility] [address] [id number] [address] [place] [address], [place] [address] Aug, 2014 [facility] [address] [id number] [address] [place] [address], [place] [address] Aug, 2014 [facility] [address] [id number] [address] [place] [address], [place] [address] Aug, 2014 [facility] [address] [id number] [address] [place] [address], [place] [address] Jul, [facility] [address] [id number] [address] [place] [address], [place] [address] Jul, [facility] [address] [id number] [address] [place] [address], [place] [address] Jun, [facility] [address] [id number] [address] [place] [address], [place] [address] Jun, [facility] [address] [id number] [address] [place] [address], [place] [address] Jun, [facility] [address] [id number] [address] [place] [address], [place] [address] Jun, [facility] [address] [id number] [address] [place] [address], [place] [address] Jun, [facility] [address] [id number] [address] [place] [address], [place] [address] Jun, [facility] [address] [id number] [address] [place] [address], [place] [address] Jun, [facility] [address] [id number] [address] [place] [address], [place] [address] Jun, [facility] [address] [id number] [address] [place] [address], [place] [address] Jun, [facility] [address] [id number] [address] [place] [address], [place] [address] Jun, [facility] [address] [id number] [address] [place] [address], [place] [address] Jun, [facility] [address] [id number] [address] [place] [address], [place] [address] May, [facility] [address] [id number] [address] [place] [address], [place] [address] May, [facility] [address] [id number] [address] [place] [address], [place] [address] May, [facility] [address] [id number] [address] [place] [address], [place] [address] May, [facility] [address] [id number] [address] [place] [address], [place] [address] May, [facility] [address] [id number] [address] [place] [address], [place] [address] May, [facility] [address] [id number] [address] [place] [address], [place] [address] May, [facility] [address] [id number] [address] [place] [address], [place] [address] May, [facility] [place] [address] [id number] [address] [place] [id number] May, [facility] [place] [address] [id number] [address] [place] [address], [place] [address] Apr, [facility] [address] [id number] [address] [place] [id number] Apr, [facility] [place] [address] [id number] [address] [place] [address], [place] [address] Apr, [facility] [place] [address] [id number] [address] [place] [address], [place] [address] Apr, [facility] [place] [address] [id number] [address] [place] [phone] Apr, [facility] [place] [address] [id number] [address] [place] [id number] Mar, [facility] [address] [id number] [facility] [place] [address] Mar, [facility] [place] [facility] [address] [id number] [address] [place] [address], [place] [address] Feb, [facility] [address] [id number] [address] [place] [address], [place] [address] Feb, [facility] [address] [id number] [address] [place] [address], [place] [address] Feb, [facility] [address] [id number] [address] [place] [address], [place] [address] Feb, [facility] [address] [id number] [address] [place] [address], [place] [address] Feb, [facility] [address] [id number] [address] [place] [address], [place] [address] Feb, [facility] [address] [id number] [address] [place] [address], [place] [address] Jan, [facility] [address] [id number] [address] [place] [address], [place] [address] Jan, [facility] [address] [id number] [address] [place] [address], [place] [address] Jan, [facility] [address] [id number] [address] [place] [address], [place] [address] Jan, [facility] [place] [address] [id number] [address] [place] [address], [place] [address] Jan, [facility] [place] [address] [id number] [address] [place] [address], [place] [address] Jan, [facility] [place] [address] [id number] [address] [place] [address], [place] [address] Jan, [facility] [place] [facility] [address] [id number] [address] [place] [address], [place] [address] Jan, [facility] [place] [facility] [address] [id number] [facility] [address] Jan, [facility] [address] [id number] [facility] [place] [address] Jan, [facility] [place] [facility] [address] [id number] [facility] [place] [address] Jan, [facility] [place] [facility] [address] [id number] [facility] [place] [address] Dec, [facility] [place] [facility] [address] [id number] [facility] [place] [address] Dec, [facility] [place] [facility] [address] [id number] [address] [place] [address], [place] [address] Dec, [facility] [address] [id number] [address] [place] [address], [place] [address] Dec, [facility] [place] [address] [id number] [address] [place] [address], [place] [address] Dec, [facility] [address] [id number] [address] [place] [address], [place] [address] Dec, [facility] [address] [id number] [address] [place] [address], [place] [address] November, [facility] [address] [id number] [address] [place] [address], [place] [address] November, [facility] [place] [address] [id number] [address] [place] [address], [place] [address] November, [facility] [place] [address] [id number] [address] [place] [address], [place] [address] November, [facility] [address] [id number] [address] [place] [address], [place] [address] November, [facility] [address] [id number] [address] [place] [address], [place] [address] November, [facility] [address] [id number] [address] [place] [address], [place] [address] Oct, [facility] [address] [id number] [facility] [place] [address] Oct, [facility] [address] [id number] [address] [place] [address], [place] [address] Oct, [facility] [address] [id number] [address] [place] [address], [place] [address] Oct, [facility] [address] [id number] [address] [place] [address], [place] [address] Sep, [facility] [address] [id number] [facility] [place] [address] Sep, [facility] [address] [id number] [address] [place] [address], [place] [address] Sep, [facility] [address] [id number] [address] [place] [address], [place] [address] Sep, [facility] [address] [id number] [address] [place] [address], [place] [address] Sep, [facility] [address] [id number] [address] [place] [address], [place] [address] Aug, [facility] [address] [id number] [address] [place] [address], [place] [address] Aug, [facility] [address] [id number] [address] [place] [address], [place] [address] Aug, [facility] [address] [id number] [address] [place] [address], [place] [address] Aug, [facility] [address] [id number] [address] [place] [address], [place] [address] 14 Aug, 2013 [facility] [address] [place] [id number] May, [facility] [address] [id number] [address] [place] [address], [place] [address] May, [facility] [address] [id number] [place] [address] 08 May, 2013 [facility] [address] [id number] [address] [place] [address], [place] [address] May, [facility] [address] [id number] [address] [place] [address], [place] [address] May, [facility] [address] [id number] [address] [place] [address], [place] [address] Apr, [facility] [address] [id number] [address] [place] [address], [place] [address] Apr, [facility] [address] [id number] [address] [place] [address], [place] [address] Apr, [facility] [address] [id number] [address] [place] [address], [place] [address] Apr, [facility] [address] [id number] [address] [place] [address], [place] [address] Apr, [facility] [address] [id number] [address] [place] [address], [place] [address] Apr, [facility] [address] [id number] [address] [place] [address], [place] [address] Apr, [facility] [address] [id number] [address] [place] [address], [place] [address] 28 Mar, 2013 [facility] [address] [id number] [address] [place] [address], [place] [address] 25 Sep, 2012 [facility] [address] [id number] [address] [place] [address], [place] [address] 24 Sep, 2012 [facility] [address] [id number] [address] [place] [address], [place] [address] 16 Sep, 2012 [facility] [address] [id number] [address] [place] [address], [place] [address] 12 Sep, 2012 [facility] [address] [id number] [address] [place] [address], [place] [address] Mar, [facility] [address] [id number] [address] [place] [address], [place] [address] Feb, [facility] [address] [id number] [address] [place] [address], [place] [address] Feb, [facility] [address] [id number] [address] [place] [address], [place] [address] Feb, [facility] [address] [id number] [address] [place] [address], [place] [address] Feb, [facility] [address] [id number] [address] [place] [address], [place] [address] Feb, [facility] [address] [id number] [address] [place] [address], [place] [address] Feb, [facility] [address] [id number] [address] [place] [address], [place] [address] Jan, [facility] [address] [id number] [address] [place] [address], [place] [address] Dec, [facility] [address] [id number] [address] [place] [address], [place] [address] Dec, [facility] [address] [id number] [address] [place] [address], [place] [address] Dec, [facility] [address] [id number] [address] [place] [address], [place] [address] Dec, [facility] [address] [id number] [address] [place] [address], [place] [address] Dec, [facility] [address] [id number] [address] [place] [address], [place] [address] 18 Dec, 2012 [facility] [address] [id number] [address] [place] [address], [place] [address] 17 Dec, 2012 [facility] [address] [id number] [address] [place] [address], [place] [address] 12 Dec, 2012 [facility] [address] [id number] [address] [place] [id number] Dec, [facility] [address] [id number] [address] [place] [address], [place] [address] November, [facility] [address] [id number] [address] [place] [id number] November, [facility] [address] [id number] [address] [place] [id number] Oct, [facility] [address] [id number] [address] [place] [id number] Sep, [facility] [address] [id number] [address] [place] [address], [place] [address] Sep, [facility] [address] [id number] [address] [place] [id number] Sep, [facility] [address] [id number] [address] [place] [id number] Sep, [facility] [address] [id number] [address] [place] [id number] Aug, [facility] [address] [id number] [address] [place] [id number] Aug, [facility] [address] [id number] [address] [place] [id number] Jul, [facility] [address] [id number] [address] [place] [id number] Jul, [facility] [address] [id number] [address] [place] [id number] Jul, [facility] [address] [id number] [address] [place] [id number] Sep, [facility] [address] [id number] [address] [place] [id number] 17 Sep, 2011 [facility] [address] [id number] [address] [place] [id number] 10 Sep, 2011 IMMUNIZATIONS No Known Immunizations SOCIAL HISTORY Never Assessed REASON FOR VISIT [facility] PLAN OF CARE VITAL SIGNS MEDICATIONS Unknown [...] obstruction, Dehydration -VCH 01/01/17 Hospitalization History [facility]- UTI/Sepsis 01/18/2018 Hospitalization History [facility] - infection 4 days 05/2018
--- OUTSIDE RECORDS SUMMARY | 2020-01-14 23:10 | XMS REPORT ---
Author Author Melvin Hwang Doctor Organization [facility] Address Unknown Phone Unavailable Care Team Providers Care Patient Day Coordinator Name Role Phone Migration, Doctor Unavailable Unavailable PROBLEMS Type Condition ICD9-CM Code [id number] Code Onset Dates Condition S tatus SNOMED Code Problem Primary insomnia F51.01 Active 193 738845 Problem Chronic fatigue, unspecified R53.82 A ctive 169007884 Problem Incontinence of feces, unspecified fecal incontinence type R15.9 Active 11258936 Problem Abdominal pain, left lower quadrant R10.32 Active 664956432 Problem Hypertension, benign I10 Active 78451518 Problem Mood disorder F39 Active 128732 05 Problem Attention to urostomy Z43.6 Active 128174889 Problem 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 728878900 Problem Chronic pain syndrome G89.4 Active 853558272 Problem Hydronephrosis with ureteral stricture, not else where classified N13.1 Active 68410890 Problem Neuropathy G62.9 Active 424381489 Problem Anxiety F41.9 Active 40450888 Problem Polyneuropathy G62.9 Active 17800 000 Problem Malignant neoplasm of colon, unspecified part of colon C18.9 Active 079451768 ALLERGIES No Information ENCOUNTERS Encounter Location Date Diagnosis [place] [id number] [facility] [id number] [address] [place] [id number] Sep, [facility] [address] [facility] [id number] [address] [place] [address] Sep, Neuropathy G62.9 [facility] [address] [facility] [id number] [address] [place] [address] Sep, [facility] [address] [facility] [id number] [address] [place] [address] Sep, H/O malignant carcinoid tumo r of rectum Z85.040 and Primary insomnia F51.01 [place] [address] [id number] [address] [place] [address] Aug, [facility] [address] [id number] [address] [place] [address] Aug, Neuropathy G62.9 [facility] [address] [id number] [address] [place] [address] Aug, [facility] [address] [id number] [address] [place] [address] Jul, Non-recurrent acute suppurat francine otitis media of left ear without spontaneous rupture of tympanic membrane H66.002 [facility] [address] [id number] [address] [place] [address] Jul, Neuropathy G62.9 [facility] [address] [id number] [address] [place] [address] Jun, [facility] [address] [id number] [address] [place] [phone] Jun, [facility] [address] [id number] [address] [place] [address] Jun, Neuropathy G62.9 [facility] [address] [id number] [address] [place] [address] Jun, [facility] [address] [id number] [address] [place] [address] Jun, [facility] [address] [id number] [address] [place] [address] Jun, Lumbar neuritis M54.16 [facility] [address] [id number] [address] [place] [address] May, Neuropathy G62.9 [facility] [address] [facility] [id number] [address] [place] [address] May, [facility] [address] [id number] [address] [place] [address] May, Neuropathy G62.9 and Hyperte nsion, benign I10 [facility] [address] [facility] [id number] [address] [place] [id number] 09 Apr, 2018 Polyneuropathy G62.9 and Hyp ertension, benign I10 [facility] [address] [place] [id number] [address] [place] [phone] 17 Mar, 2018 Chronic pain syndrome G89.[address], benign I10 [facility] [address] [place] [id number] [place] [address] 11 Mar, 2018 Polyneuropathy G62.9 and Hyp ertension, benign I10 [facility] [address] [place] [id number] [address] [place] [address] Feb, [facility] [address] [place] [id number] [place] [address] Feb, Hypertension, benign I10 [facility] [address] [place] [id number] [place] [address] Feb, Hypertension, benign I10 ; P olyneuropathy G62.9 and Primary insomnia F51.01 [facility] [address] [place] [id number] [address] [place] [address] Jan, Hypertension, benign I10 and Polyneuropathy G62.9 [facility] [address] [place] [id number] [address] [place] [address] Jan, Hypertension, benign I10 and Neuropathy G62.9 [facility] [address] [place] [id number] [address] [place] [phone] Jan, [facility] [address] [place] [id number] [address] [place] [address] Dec, Polyneuropathy G62.9 [facility] [address] [place] [id number] [address] [place] [phone] Dec, Mood disorder F39 [facility] [address] [place] [id number] [address] [place] [address] November, Polyneuropathy G62.9 [facility] [address] [facility] [id number] [address] [place] [address] November, Medicare annual wellness vis it, initial Z00.00 [facility] [address] [facility] [id number] [address] [place] [address] November, Mood disorder F39 [facility] [address] [facility] [id number] [address] [place] [address] Oct, Polyneuropathy G62.9 [facility] [address] [facility] [id number] [address] [place] [address] Oct, [facility] [address] [facility] [id number] [address] [place] [address] Oct, [facility] [address] [facility] [id number] [address] [place] [address] Oct, Mood disorder F39 ; Attentio n to urostomy Z43.6 ; Chronic pain syndrome G89.[address] [facility] [address] [facility] [id number] [address] [place] [address] Sep, Polyneuropathy G62.9 [facility] [address] [facility] [id number] [address] [place] [phone] Sep, [facility] [address] [facility] [id number] [address] [place] [address] Sep, Polyneuropathy G62.9 [facility] [address] [facility] [id number] [address] [place] [address] Aug, Polyneuropathy G62.9 [facility] [address] [facility] [id number] [address] [place] [address] Aug, Malignant neoplasm of colon, unspecified part of colon C18.[address] [facility] [address] [facility] [id number] [address] [place] [address] Aug, Neuropathy G62.9 [address] G[address].9 [facility] [address] [id number] [address] [place] [address] Jul, Encounter for drug screening Z02.83 [facility] [address] [facility] [id number] [address] [place] [address] Jul, Polyneuropathy G62.9 [facility] [address] [facility] [id number] [address] [place] [address] Jul, [facility] [address] [facility] [id number] [address] [place] [address] Jul, Neuropathy G62.[address] [facility] [address] [facility] [id number] [address] [place] [address] Jul, [facility] [address] [facility] [id number] [address] [place] [address] Jul, [facility] [address] [facility] [id number] [address] [place] [address] Jul, [facility] [address] [facility] [id number] [address] [place] [address] Jul, Polyneuropathy G62.9 [facility] [address] [facility] [id number] [address] [place] [address] Jul, [facility] [address] [facility] [id number] [address] [place] [address] Jun, [facility] [address] [facility] [id number] [address] [place] [address] Jun, [facility] [address] [facility] [id number] [address] [place] [address] Jun, [facility] [address] [id number] [place] [address] 07 Jun, 2017 Encounter for dental examina tion Z01.20 [facility] [address] [facility] [id number] [address] [place] [address] Jun, Polyneuropathy G62.[address] [facility] [address] [facility] [id number] [address] [place] [address] Jun, [facility] [address] [place] [id number] [place] [address] May, Dental examination Z01.20 [facility] [address] [place] [id number] [address] [place] [address] May, Polyneuropathy G62.9 [facility] [address] [place] [id number] [address] [place] [address] Apr, Polyneuropathy G62.9 [facility] [address] [place] [id number] [address] [place] [address] Apr, Polyneuropathy G62.9 [facility] [address] [place] [id number] [address] [place] [address] Apr, Hypertension, benign I10 ; P olyneuropathy G62.[address] [facility] [address] [place] [id number] [address] [place] [address] Apr, Primary insomnia F51.[address] [facility] [address] [place] [id number] [address] [place] [address] Apr, Primary insomnia F51.[address] [facility] [id number] [place] [address] Mar, Primary insomnia F51.01 [facility] [address] [facility] [id number] [address] [place] [address] Mar, [facility] [address] [place] [id number] [address] [place] [address] Mar, Polyneuropathy G62.9 [facility] [address] [facility] [id number] [address] [place] [address] Feb, Primary insomnia F51.01 [facility] [id number] [place] [address] Feb, [facility] [address] [id number] [place] [address] Feb, [facility] [address] [id number] [address] [place] [address] Feb, Polyneuropathy G62.9 [facility] [address] [id number] [address] [place] [address], [place] [address] Feb, Primary insomnia F51.01 [facility] [address] [id number] [address] [place] [address], [place] [address] Jan, [facility] [address] [id number] [address] [place] [address] Jan, [facility] [address] [facility] [id number] [address] [place] [address], [place] [address] Dec, [facility] [address] [id number] [address] [place] [address] Dec, Primary insomnia F51.01 [facility] [address] [id number] [address] [place] [address], [place] [address] Dec, Primary insomnia F51.01 [facility] [address] [id number] [address] [place] [address] Dec, [facility] [address] [facility] [id number] [address] [place] [address] Dec, [facility] [address] [facility] [id number] [address] [place] [address] Dec, [facility] [address] [id number] [address] [place] [address] Dec, [facility] [address] [facility] [id number] [address] [place] [address] November, Primary insomnia F51.[address] [facility] [address] [id number] [address] [place] [address] November, [facility] [address] [id number] [address] [place] [address] November, Abdominal pain, left lower q uadrant R10.32 [facility] [address] [id number] [address] [place] [address] November, [facility] [address] [id number] [address] [place] [address] Oct, [facility] [address] [id number] [address] [place] [address] Oct, Abdominal pain, left lower q uadrant R10.32 ; H/O malignant carcinoid tumor of rectum Z85.[address] [facility] [address] [id number] [address] [place] [address] Oct, [facility] [address] [facility] [id number] [address] [place] [address] Sep, [facility] [id number] [id number] Sep, [facility] [address] [id number] [address] [place] [address] Sep, [facility] [address] [id number] [address] [place] [address] Aug, [facility] [address] [facility] [id number] [address] [place] [address] Aug, [facility] [address] [id number] [address] [place] [address] Aug, Abdominal pain, left lower q uadrant R10.32 ; Neuropathy G62.9 and Anxiety F41.[address] [facility] [address] [place] [address] Jul, [facility] [address] [facility] [id number] [address] [place] [address] Jul, [facility] [address] [id number] [address] [place] [address] Jul, [facility] [address] [id number] [address] [place] [address] Jul, [facility] [address] [id number] [address] [place] [address] Jul, [facility] [address] [id number] [address] [place] [address] Jun, [facility] [address] [id number] [address] [place] [address] May, [facility] [address] [id number] [address] [place] [address] May, [facility] [address] [id number] [address] [place] [address] Apr, [facility] [address] [id number] [address] [place] [address] Apr, Muscle spasms of both lower extremities M62.838 and Cellulitis, unspecified cellulitis site L03.90 [facility] [address] [id number] [address] [place] [address] Apr, [facility] [address] [id number] [address] [place] [address] 23 Mar, 2016 Generalized abdominal pain R 10.84 [facility] [address] [id number] [address] [place] [address] [address], [address] [facility] [address] [id number] [address] [place] [address] [address], [address] [facility] [address] [id number] [address] [place] [address] [address], [address] [facility] [address] [id number] [address] [place] [address] [address], [address] [facility] [address] [id number] [address] [place] [address] Mar, [facility] [address] [id number] [address] [place] [address] Mar, [facility] [address] [id number] [address] [place] [address] Mar, [facility] [address] [id number] [address] [place] [address] Feb, Other specified diseases of anus and rectum K62.89 [facility] [address] [id number] [address] [place] [address] Feb, [facility] [address] [id number] [address] [place] [address] Feb, Dizziness R42 [facility] [address] [id number] [address] [place] [address] Feb, [facility] [address] [id number] [address] [place] [address] Jan, Polyneuropathy G62.9 [facility] [address] [id number] [address] [place] [address] Jan, Other specified diseases of anus and rectum K62.89 [facility] [address] [id number] [address] [place] [address] Jan, [facility] [address] [id number] [address] [place] [address] Jan, [facility] [address] [id number] [address] [place] [address] Jan, [facility] [address] [id number] [address] [place] [address] Jan, Dizziness R42 [facility] [address] [id number] [address] [place] [address] Dec, [facility] [address] [id number] [address] [place] [address] Dec, [facility] [address] [id number] [address] [place] [address] Dec, [facility] [address] [id number] [address] [place] [address] Dec, Dizziness R42 [facility] [address] [facility] [id number] [address] [place] [address] November, [facility] [address] [facility] [id number] [address] [place] [address] Oct, [facility] [address] [id number] [address] [place] [address] Oct, [facility] [address] [facility] [id number] [address] [place] [address] Oct, [facility] [address] [facility] [id number] [address] [place] [address] Oct, [facility] [address] [facility] [id number] [address] [place] [address] Sep, [facility] [address] [facility] [id number] [address] [place] [address] Sep, Primary insomnia F51.01 [facility] [address] [place] [id number] [address] [place] [address] Sep, Primary insomnia F51.01 [facility] [address] [facility] [id number] [address] [place] [address] Sep, [facility] [address] [facility] [id number] [address] [place] [phone] Aug, [facility] [address] [facility] [id number] [address] [place] [address] Aug, [facility] [address] [facility] [id number] [address] [place] [address] Aug, Primary insomnia F51.01 ; Mo od disorder F39 ; Nausea and vomiting, unspecified intactability, vomiting of unspecified type R11.[address] [facility] [address] [id number] [address] [place] [id number] 15 Aug, 2015 [facility] [address] [facility] [id number] [address] [place] [id number] 05 Aug, [address] [facility] [address] [facility] [id number] [address] [place] [phone] Aug, [facility] [address] [facility] [id number] [address] [place] [phone] Aug, [facility] [address] [facility] [id number] [address] [place] [id number] Jul, Folliculitis L73.9 [facility] [address] [facility] [id number] [address] [place] [phone] Jul, [facility] [address] [facility] [id number] [address] [place] [phone] Jun, Folliculitis L73.9 [facility] [address] [facility] [id number] [address] [place] [id number] Jun, [facility] [address] [facility] [id number] [address] [place] [phone] May, Polyneuropathy G62.9 [facility] [address] [facility] [id number] [address] [place] [phone] May, Other specified diseases of anus and rectum K62.89 [facility] [address] [facility] [id number] [address] [place] [phone] May, [facility] [address] [facility] [id number] [address] [place] [id number] May, Primary insomnia F51.01 [facility] [address] [facility] [id number] [address] [place] [phone] May, [facility] [address] [facility] [id number] [address] [place] [phone] May, [facility] [address] [id number] [address] [place] [phone] Apr, Other specified diseases of anus and rectum K62.89 ; Chronic fatigue R53.82 ; Urinary tract infection, site not specified N39.0 and Enterococcus as the cause of diseases classified elsewhere B95.2 [facility] [address] [id number] [address] [place] [id number] [address], [address] [facility] [address] [id number] [address] [place] [phone] 15 Apr, 2015 [facility] [address] [id number] [address] [place] [id number] 14 Apr, 2015 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 [facility] [address] [id number] [address] [place] [phone] [address], [address] [facility] [address] [id number] [address] [place] [id number] [address], [address] [facility] [address] [id number] [address] [place] [id number] [address], [address] [facility] [address] [id number] [address] [place] [id number] [address], [address] [facility] [address] [id number] [address] [place] [id number] 14 Mar, 2015 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 [facility] [address] [id number] [address] [place] [phone] [address] [facility] [address] [id number] [address] [place] [id number] [address], [address] [facility] [address] [id number] [address] [place] [phone] 11 Mar, 2015 [facility] [address] [id number] [address] [place] [address] [address], [address] [facility] [address] [id number] [address] [place] [address] Feb, [facility] [address] [id number] [address] [place] [address] Feb, [facility] [address] [id number] [address] [place] [address] Feb, [facility] [address] [id number] [address] [place] [address] Jan, [facility] [address] [id number] [address] [place] [address] Jan, Nausea 787.02 and Neuropathy 355.9 [facility] [address] [id number] [address] [place] [address] Jan, [facility] [address] [id number] [address] [place] [address] Jan, [facility] [address] [id number] [address] [place] [address] Jan, [facility] [address] [id number] [address] [place] [id number] Jan, Dental examination V72.2 [facility] [address] [id number] [address] [place] [address] Jan, [facility] [address] [id number] [address] [place] [address] Dec, [facility] [address] [id number] [address] [place] [address] Dec, [facility] [address] [id number] [address] [place] [address] Dec, Neuropathy 355.9 [facility] [address] [id number] [address] [place] [id number] November, [facility] [address] [id number] [address] [place] [address] November, [facility] [address] [id number] [address] [place] [address] November, [facility] [address] [id number] [address] [place] [address], [place] [address] 14 Oct, 2014 [facility] [address] [id number] [address] [place] [address], [place] [address] Oct, [facility] [address] [id number] [address] [place] [address], [place] [address] Sep, [facility] [address] [id number] [address] [place] [address], [place] [address] Sep, [facility] [address] [id number] [address] [place] [address], [place] [address] Sep, [facility] [address] [id number] [address] [place] [address], [place] [address] Sep, [facility] [address] [id number] [address] [place] [address], [place] [address] Sep, [facility] [address] [id number] [address] [place] [address], [place] [address] Sep, [facility] [address] [id number] [address] [place] [address], [place] [address] Sep, [facility] [address] [id number] [address] [place] [address], [place] [address] Sep, [facility] [address] [id number] [address] [place] [address], [place] [address] Aug, [facility] [address] [id number] [address] [place] [address], [place] [address] Aug, [facility] [address] [id number] [address] [place] [address], [place] [address] Aug, [facility] [address] [id number] [address] [place] [address], [place] [address] Aug, [facility] [address] [id number] [address] [place] [address], [place] [address] Aug, [facility] [address] [id number] [address] [place] [address] Aug, 2014 [facility] [address] [id number] [address] [place] [address], [place] [address] Aug, [facility] [address] [id number] [address] [place] [address], [place] [address] Aug, [facility] [address] [id number] [address] [place] [address], [place] [address] Jul, [facility] [address] [id number] [address] [place] [address], [place] [address] Jul, [facility] [address] [id number] [address] [place] [address], [place] [address] Jun, [facility] [address] [id number] [address] [place] [address], [place] [address] Jun, [facility] [address] [id number] [address] [place] [address], [place] [address] Jun, [facility] [address] [id number] [address] [place] [address], [place] [address] Jun, [facility] [address] [id number] [address] [place] [address], [place] [address] Jun, [facility] [address] [id number] [address] [place] [address], [place] [address] Jun, [facility] [address] [id number] [address] [place] [address], [place] [address] Jun, [facility] [address] [id number] [address] [place] [address], [place] [address] Jun, [facility] [address] [id number] [address] [place] [address], [place] [address] Jun, [facility] [address] [id number] [address] [place] [address], [place] [address] Jun, [facility] [address] [id number] [address] [place] [address], [place] [address] Jun, [facility] [address] [id number] [address] [place] [address], [place] [address] May, [facility] [address] [id number] [address] [place] [address], [place] [address] May, [facility] [address] [id number] [address] [place] [address], [place] [address] May, [facility] [address] [id number] [address] [place] [address], [place] [address] May, [facility] [address] [id number] [address] [place] [address], [place] [address] May, [facility] [address] [id number] [address] [place] [address], [place] [address] May, [facility] [address] [id number] [address] [place] [address], [place] [address] May, [facility] [address] [id number] [address] [place] [address], [place] [address] May, [facility] [address] [id number] [address] [place] [address], [place] [address] May, [facility] [address] [id number] [address] [place] [address], [place] [address] Apr, [facility] [address] [id number] [address] [place] [address], [place] [address] Apr, [facility] [address] [id number] [address] [place] [address], [place] [address] Apr, [facility] [address] [id number] [address] [place] [address], [place] [address] Apr, [facility] [address] [id number] [address] [place] [address], [place] [address] 15 Apr, 2014 [facility] [address] [id number] [address] [place] [address], [place] [address] 22 Mar, 2014 [facility] [address] [id number] [address] [place] [address], [place] [address] Mar, [facility] [address] [id number] [facility] [place] [address] Feb, [facility] [address] [id number] [address] [place] [address], [place] [address] Feb, [facility] [address] [id number] [address] [place] [address], [place] [address] Feb, [facility] [address] [id number] [address] [place] [address], [place] [address] Feb, [facility] [address] [id number] [address] [place] [address], [place] [address] Feb, [facility] [address] [id number] [address] [place] [address], [place] [address] Feb, [facility] [address] [id number] [address] [place] [address], [place] [address] Jan, [facility] [address] [id number] [address] [place] [address], [place] [address] Jan, [facility] [address] [id number] [address] [place] [address], [place] [address] Jan, [facility] [address] [id number] [address] [place] [address], [place] [address] Jan, [facility] [address] [id number] [address] [place] [address], [place] [address] Jan, [facility] [address] [id number] [address] [place] [address], [place] [address] Jan, [facility] [address] [id number] [address] [place] [address], [place] [address] Jan, [facility] [address] [id number] [address] [place] [address], [place] [address] Jan, [facility] [address] [id number] [address] [place] [address], [place] [address] Jan, [facility] [address] [id number] [facility] [place] [address] Jan, [facility] [address] [id number] [facility] [place] [address] Jan, [facility] [address] [id number] [facility] [place] [address] Dec, [facility] [address] [id number] [address] [place] [address], [place] [address] Dec, [facility] [address] [id number] [address] [place] [address], [place] [address] Dec, [facility] [address] [id number] [address] [place] [address], [place] [address] Dec, [facility] [address] [id number] [address] [place] [address], [place] [address] Dec, [facility] [address] [id number] [address] [place] [address], [place] [address] Dec, [facility] [address] [id number] [address] [place] [address], [place] [address] November, [facility] [address] [id number] [address] [place] [address], [place] [address] November, [facility] [address] [id number] [address] [place] [address], [place] [address] November, [facility] [address] [id number] [address] [place] [address], [place] [address] November, [facility] [address] [id number] [address] [place] [address], [place] [address] November, [facility] [address] [id number] [address] [place] [address], [place] [address] November, [facility] [address] [id number] [address] [place] [address], [place] [address] Oct, [facility] [address] [id number] [address] [place] [address], [place] [address] Oct, [facility] [address] [id number] [address] [place] [address], [place] [address] Oct, [facility] [address] [id number] [address] [place] [address], [place] [address] Oct, [facility] [address] [id number] [address] [place] [address], [place] [address] Sep, [facility] [address] [id number] [address] [place] [address], [place] [address] Sep, [facility] [address] [id number] [address] [place] [address], [place] [address] Sep, [facility] [address] [id number] [address] [place] [address], [place] [address] Sep, [facility] [address] [id number] [address] [place] [address], [place] [address] Sep, [facility] [address] [id number] [address] [place] [address], [place] [address] Aug, [facility] [address] [id number] [address] [place] [address], [place] [address] Aug, [facility] [address] [id number] [address] [place] [address], [place] [address] Aug, [facility] [address] [id number] [address] [place] [address], [place] [address] Aug, [facility] [address] [id number] [address] [place] [address], [place] [address] Aug, [facility] [address] [place] [id number] May, [facility] [address] [id number] [address] [place] [address], [place] [address] May, [facility] [address] [id number] [address] [place] [address] May, [facility] [address] [id number] [address] [place] [address] May, [facility] [address] [id number] [address] [place] [address], [place] [address] May, [facility] [address] [id number] [address] [place] [address], [place] [address] Apr, [facility] [address] [id number] [address] [place] [address], [place] [address] Apr, [facility] [address] [id number] [address] [place] [address], [place] [address] Apr, [facility] [address] [id number] [address] [place] [address], [place] [address] Apr, [facility] [address] [id number] [address] [place] [address], [place] [address] Apr, [facility] [address] [id number] [address] [place] [address], [place] [address] Apr, [facility] [address] [id number] [address] [place] [address], [place] [address] Apr, [facility] [address] [id number] [address] [place] [address], [place] [address] 28 Mar, 2013 [facility] [address] [id number] [address] [place] [address], [place] [address] Mar, [facility] [address] [id number] [address] [place] [address], [place] [address] 24 Mar, 2013 [facility] [address] [id number] [address] [place] [address], [place] [address] 16 Mar, 2013 [facility] [address] [id number] [address] [place] [address], [place] [address] 12 Mar, 2013 [facility] [address] [id number] [address] [place] [address], [place] [address] 06 Mar, 2013 [facility] [address] [id number] [address] [place] [address], [place] [address] Feb, [facility] [address] [id number] [facility] [place] [address] Feb, [facility] [address] [id number] [address] [place] [address], [place] [address] Feb, [facility] [address] [id number] [facility] [place] [address] Feb, [facility] [address] [id number] [address] [place] [address], [place] [address] Feb, [facility] [address] [id number] [address] [place] [address], [place] [address] Feb, [facility] [address] [id number] [address] [place] [address], [place] [address] Jan, [facility] [address] [id number] [address] [place] [address], [place] [address] Dec, [facility] [address] [id number] [address] [place] [address], [place] [address] Dec, [facility] [address] [id number] [address] [place] [address], [place] [address] Dec, [facility] [address] [id number] [address] [place] [address], [place] [address] Dec, [facility] [address] [id number] [address] [place] [address], [place] [address] Dec, [facility] [address] [id number] [address] [place] [address], [place] [address] Dec, [facility] [address] [id number] [address] [place] [address], [place] [address] Dec, [facility] [address] [id number] [address] [place] [address], [place] [address] Dec, [facility] [address] [id number] [address] [place] [address], [place] [address] Dec, [facility] [address] [id number] [address] [place] [address], [place] [address] November, [facility] [address] [id number] [address] [place] [address] November, [facility] [address] [id number] [address] [place] [address] Oct, [facility] [address] [id number] [address] [place] [address] Sep, [facility] [address] [id number] [address] [place] [address] Sep, [facility] [address] [id number] [address] [place] [address] Sep, [facility] [address] [id number] [address] [place] [address] Sep, [facility] [address] [id number] [address] [place] [address] Aug, [facility] [address] [id number] [address] [place] [address] Aug, [facility] [address] [id number] [address] [place] [address] Jul, [facility] [address] [id number] [address] [place] [address] Jul, [facility] [address] [id number] [address] [place] [address] Jul, [facility] [address] [id number] [address] [place] [address] Sep, [facility] [address] [id number] [address] [place] [address] Sep, [facility] [address] [id number] [address] [place] [address] 10 Sep, 2011 IMMUNIZATIONS No Known Immunizations SOCIAL HISTORY Never Assessed REASON FOR VISIT EMR-[facility] PLAN OF CARE VITAL SIGNS [...] bowel obstruction, Dehydration -[facility] 01/01/17 Hospitalization History [facility]- UTI/Sepsis 01/18/2018 Hospitalization History [facility] - infection 4 days 05/2018
--- OUTSIDE RECORDS SUMMARY | 2020-01-14 23:10 | XMS REPORT ---
Author Author Melvin Hwang Doctor Organization [facility] Address Unknown Phone Unavailable Care Team Providers Care Solutions Architect Name Role Phone Migration, Doctor Unavailable Unavailable PROBLEMS Type Condition ICD9-CM Code AEO56-QT Code Onset Dates Condition S tatus SNOMED Code Problem Primary insomnia F51.01 Active 193 197377 Problem Chronic fatigue, unspecified R53.82 A ctive 289000339 Problem Incontinence of feces, unspecified fecal incontinence type R15.9 Active 21608228 Problem Abdominal pain, left lower quadrant R10.32 Active 643925786 Problem Hypertension, benign I10 Active 47194426 Problem Mood disorder F39 Active 662926 05 Problem Attention to urostomy Z43.6 Active 809202738 Problem 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 692977043 Problem Chronic pain syndrome G89.4 Active 957597312 Problem Hydronephrosis with ureteral stricture, not else where classified N13.1 Active 69914757 Problem Neuropathy G62.9 Active 685978238 Problem Anxiety F41.9 Active 64396417 Problem Polyneuropathy G62.9 Active 88578 000 Problem Malignant neoplasm of colon, unspecified part of colon C18.9 Active [id number] ALLERGIES No Information ENCOUNTERS Encounter Location Date Diagnosis [place] [address] [facility] [id number] [address] [place] [address] Oct, [facility] [address] [facility] [id number] [address] [place] [address] Sep, [facility] [address] [facility] [id number] [address] [place] [address] Sep, Neuropathy G62.9 [facility] [address] [facility] [id number] [address] [place] [address] Sep, [facility] [address] [facility] [id number] [address] [place] [address] Sep, H/O malignant carcinoid tumo r of rectum Z85.040 and Primary insomnia F51.01 [facility] [address] [id number] [address] [place] [address] Aug, [facility] [address] [id number] [address] [place] [address] Aug, Neuropathy G62.9 [facility] [address] [id number] [address] [place] [address] Aug, [facility] [address] [id number] [address] [place] [address] Jul, Non-recurrent acute suppurat francine otitis media of left ear without spontaneous rupture of tympanic membrane H66.002 [facility] [address] [id number] [address] [place] [address] Jul, Neuropathy G62.9 [facility] [address] [id number] [address] [place] [address] Jun, [facility] [address] [id number] [address] [place] [address] Jun, [facility] [address] [id number] [address] [place] [address] Jun, Neuropathy G62.9 [facility] [address] [facility] [id number] [address] [place] [address] Jun, [facility] [address] [id number] [address] [place] [address] Jun, [facility] [address] [facility] [id number] [address] [place] [address] Jun, Lumbar neuritis M54.16 [facility] [address] [id number] [address] [place] [address] May, Neuropathy G62.9 [facility] [address] [facility] [id number] [address] [place] [address] May, [facility] [address] [address] 05 May, 2018 Neuropathy G62.9 and Hyperte nsion, benign I10 [facility] [address] [address] 09 Apr, 2018 Polyneuropathy G62.9 and Hyp ertension, benign I10 [facility] [address] [id number] 17 Mar, 2018 Chronic pain syndrome G89.4 and Hypertension, benign I10 [facility] [address] [place] [id number] [place] [address] 11 Mar, 2018 Polyneuropathy G62.9 and Hyp ertension, benign I10 [place] [address] [place] [id number] [place] [address] 27 Feb, 2018 [place] [address] [id number] Feb, Hypertension, benign I10 [facility] [address] [address] 15 Feb, 2018 Hypertension, benign I10 ; P olyneuropathy G62.9 and Primary insomnia F51.01 [facility] [address] [place] [id number] [place] [address] Jan, Hypertension, benign I10 and Polyneuropathy G62.9 [facility] [address] [address] Jan, Hypertension, benign I10 and Neuropathy G62.9 [facility] [address] [place] [id number] [address] [place] [address] Jan, [facility] [address] [address] Dec, Polyneuropathy G62.9 [facility] [address] [place] [id number] [place] [address] 14 Dec, 2017 Mood disorder F39 [facility] [address] [place] [id number] [address] [place] [address] November, Polyneuropathy G62.9 [facility] [address] [facility] [id number] [address] [place] [address] November, Medicare annual wellness vis it, initial Z00.00 [facility] [address] [facility] [id number] [address] [place] [address] November, Mood disorder F39 [facility] [address] [facility] [id number] [address] [place] [address] Oct, Polyneuropathy G62.9 [facility] [address] [id number] [address] [place] [address] Oct, [facility] [address] [facility] [id number] [address] [place] [address] Oct, [facility] [address] [facility] [id number] [address] [place] [address] Oct, Mood disorder F39 ; Attentio n to urostomy Z43.6 ; Chronic pain syndrome G89.4 and Polyneuropathy G62.9 [facility] [address] [facility] [id number] [address] [place] [address] Sep, Polyneuropathy G62.9 [facility] [address] [facility] [id number] [address] [place] [address] Sep, [facility] [address] [facility] [id number] [address] [place] [address] Sep, Polyneuropathy G62.9 [facility] [address] [facility] [id number] [address] [place] [address] Aug, Polyneuropathy G62.9 [facility] [address] [facility] [id number] [address] [place] [address] Aug, Malignant neoplasm of colon, unspecified part of colon C18.9 and Polyneuropathy G62.9 [facility] [address] [facility] [id number] [address] [place] [address] Aug, Neuropathy G62.9 and Polyneu ropathy G62.9 [facility] [address] [facility] [id number] [address] [place] [address] Jul, Encounter for drug screening Z02.83 [facility] [address] [facility] [id number] [address] [place] [address] Jul, Polyneuropathy G62.9 [facility] [address] [id number] [address] [place] [address] Jul, [facility] [address] [facility] [id number] [address] [place] [address] Jul, Neuropathy G62.9 and Anxiety F41.9 [facility] [address] [facility] [id number] [address] [place] [address] Jul, [facility] [address] [facility] [id number] [address] [place] [address] Jul, [facility] [address] [id number] [address] [place] [address] Jul, [facility] [address] [facility] [id number] [address] [place] [address] Jul, Polyneuropathy G62.9 [facility] [address] [facility] [id number] [address] [place] [address] Jul, [facility] [address] [facility] [id number] [address] [place] [address] Jun, [facility] [address] [facility] [id number] [address] [place] [address] Jun, [facility] [address] [facility] [id number] [address] [place] [address] Jun, [facility] [address] [id number] [address] [place] [address] 07 Jun, 2017 Encounter for dental examina tion Z01.20 [facility] [address] [place] [address] Jun, Polyneuropathy G62.9 and Anx iety F41.9 [facility] [address] [place] [address] Jun, [facility] [address] [place] [id number] [place] [address] May, Dental examination Z01.20 [facility] [address] [address] May, Polyneuropathy G62.9 [facility] [address] [address] Apr, Polyneuropathy G62.9 [facility] [address] [address] Apr, Polyneuropathy G62.9 [facility] [address] [address] Apr, Hypertension, benign I10 ; P olyneuropathy G62.9 and Anxiety F41.9 [facility] [address] [place] [id number] [address] [place] [address] Apr, Primary insomnia F51.01 and Polyneuropathy G62.9 [facility] [address] [address] Apr, Primary insomnia F51.01 and Polyneuropathy G62.9 [facility] [address] [place] [id number] [address] [place] [address] Mar, Primary insomnia F51.01 [facility] [address] [address] Mar, [facility] [address] [place] [id number] [address] [place] [address] Mar, Polyneuropathy G62.9 [facility] [address] [place] [id number] [address] [place] [address] Feb, Primary insomnia F51.01 [facility] [address] [id number] [address] [place] [address], [place] [address] Feb, [facility] [address] [id number] [address] [place] [address], [place] [address] Feb, [facility] [address] [id number] [address] [place] [address], [place] [address] Feb, Polyneuropathy G62.9 [facility] [address] [id number] [address] [place] [address], [place] [address] Feb, Primary insomnia F51.01 [facility] [address] [id number] [address] [place] [address], [place] [address] Jan, [facility] [address] [facility] [id number] [address] [place] [address], [place] [address] Jan, [facility] [address] [id number] [address] [place] [address] Dec, [facility] [address] [id number] [address] [place] [address], [place] [address] Dec, Primary insomnia F51.01 [facility] [address] [id number] [address] [place] [address], [place] [address] Dec, Primary insomnia F51.01 [facility] [address] [id number] [address] [place] [address], [place] [address] Dec, [facility] [address] [id number] [address] [place] [address] Dec, [facility] [address] [id number] [address] [place] [address] Dec, [facility] [address] [facility] [id number] [address] [place] [address], [place] [address] Dec, [facility] [address] [facility] [id number] [address] [place] [address] November, Primary insomnia F51.01 and Polyneuropathy G62.9 [facility] [address] [facility] [id number] [address] [place] [address] November, [facility] [address] [place] [id number] [address] [place] [address] November, Abdominal pain, left lower q uadrant R10.32 [facility] [address] [place] [id number] [address] [place] [address] November, [facility] [address] [facility] [id number] [address] [place] [address] Oct, [facility] [address] [place] [id number] [address] [place] [address] Oct, Abdominal pain, left lower q uadrant R10.32 ; H/O malignant carcinoid tumor of rectum Z85.040 and Neuropathy G62.9 [facility] [address] [place] [id number] [address] [place] [address] Oct, [facility] [address] [facility] [id number] [address] [place] [address] Sep, [facility] [address] [place] [id number] [place] [id number] Sep, [facility] [address] [place] [id number] [address] [place] [address] Sep, [facility] [address] [place] [id number] [address] [place] [address] Aug, [facility] [address] [facility] [id number] [address] [place] [address] Aug, [facility] [address] [place] [id number] [address] [place] [address] Aug, Abdominal pain, left lower q uadrant R10.32 ; Neuropathy G62.9 and Anxiety F41.9 [facility] [address] [place] [address] Jul, [facility] [address] [place] [id number] [place] [address] Jul, [facility] [address] [id number] [address] [place] [address] Jul, [facility] [address] [id number] [address] [place] [address] Jul, [facility] [address] [id number] [address] [place] [address] Jul, [facility] [address] [id number] [address] [place] [address] Jun, [facility] [address] [id number] [address] [place] [address] May, [facility] [address] [id number] [address] [place] [address] May, [facility] [address] [id number] [address] [place] [address] Apr, [facility] [address] [id number] [address] [place] [address] Apr, Muscle spasms of both lower extremities M62.838 and Cellulitis, unspecified cellulitis site L03.90 [facility] [address] [id number] [address] [place] [address] Apr, [facility] [address] [id number] [address] [place] [address] 23 Mar, 2016 Generalized abdominal pain R 10.84 [facility] [address] [id number] [address] [place] [address] 20 Mar, 2016 [facility] [address] [id number] [address] [place] [address] 14 Mar, 2016 [facility] [address] [id number] [address] [place] [address] 14 Mar, 2016 [facility] [address] [id number] [address] [place] [address] 13 Mar, 2016 [facility] [address] [id number] [address] [place] [address] 12 Mar, 2016 [facility] [address] [id number] [address] [place] [address] Mar, [facility] [address] [id number] [address] [place] [address] Mar, [facility] [address] [id number] [address] [place] [address] Feb, Other specified diseases of anus and rectum K62.89 [facility] [address] [id number] [address] [place] [address] Feb, [facility] [address] [id number] [address] [place] [address] Feb, Dizziness R42 [facility] [address] [id number] [address] [place] [address] Feb, [facility] [address] [id number] [address] [place] [address] Jan, Polyneuropathy G62.9 [facility] [address] [id number] [address] [place] [address] Jan, Other specified diseases of anus and rectum K62.89 [facility] [address] [id number] [address] [place] [address] Jan, [facility] [address] [id number] [address] [place] [address] Jan, [facility] [address] [id number] [address] [place] [address] Jan, [facility] [address] [id number] [address] [place] [address] Jan, Dizziness R42 [facility] [address] [id number] [address] [place] [address] Dec, [facility] [address] [id number] [address] [place] [address] Dec, [facility] [address] [id number] [address] [place] [address], [place] [address] Dec, [facility] [address] [id number] [address] [place] [address], [place] [address] Dec, Dizziness R42 [facility] [address] [id number] [address] [place] [address] November, [facility] [address] [id number] [address] [place] [address], [place] [address] Oct, [facility] [address] [id number] [address] [place] [address], [place] [address] Oct, [facility] [address] [id number] [address] [place] [address] Oct, [facility] [address] [id number] [address] [place] [address] Oct, [facility] [address] [id number] [address] [place] [address] Sep, [facility] [address] [id number] [address] [place] [address] Sep, Primary insomnia F51.01 [facility] [address] [facility] [id number] [address] [place] [address] Sep, Primary insomnia F51.01 [facility] [address] [id number] [address] [place] [address] Sep, [facility] [address] [id number] [address] [place] [address] Aug, [facility] [address] [id number] [address] [place] [address] Aug, [facility] [address] [facility] [id number] [address] [place] [address] Aug, Primary insomnia F51.01 ; Mo od disorder F39 ; Nausea and vomiting, unspecified intactability, vomiting of unspecified type R11.2 and Diarrhea R19.7 [facility] [address] [place] [id number] [address] [place] [address] Aug, [facility] [address] [place] [id number] [address] [place] [address] Aug, Folliculitis L73.9 [facility] [address] [place] [id number] [place] [address] Aug, [facility] [address] [place] [id number] [place] [address] Aug, [facility] [address] [place] [id number] [place] [address] Jul, Folliculitis L73.9 [facility] [address] [place] [id number] [address] [place] [address] Jul, [facility] [address] [address] Jun, Folliculitis L73.9 [facility] [address] [address] Jun, [facility] [address] [address] May, Polyneuropathy G62.9 [facility] [address] [place] [id number] [address] [place] [address] May, Other specified diseases of anus and rectum K62.89 [facility] [address] [place] [id number] [address] [place] [address] May, [facility] [address] [address] May, Primary insomnia F51.01 [facility] [address] [place] [id number] [address] [place] [address] May, [facility] [address] [place] [id number] [place] [address] May, [facility] [address] [id number] [address] [place] [address] Apr, Other specified diseases of anus and rectum K62.89 ; Chronic fatigue R53.82 ; Urinary tract infection, site not specified N39.0 and Enterococcus as the cause of diseases classified elsewhere B95.2 [facility] [address] [id number] [address] [place] [phone] 16 Apr, 2015 [facility] [address] [id number] [address] [place] [phone] 15 Apr, 2015 [facility] [address] [id number] [address] [place] [phone] Apr, 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 [facility] [address] [id number] [address] [place] [id number] 05 Apr, 2015 [facility] [address] [id number] [address] [place] [phone] 26 Mar, 2015 [facility] [address] [id number] [address] [place] [phone] 23 Mar, 2015 [facility] [address] [id number] [address] [place] [phone] 17 Mar, 2015 [facility] [address] [id number] [address] [place] [phone] 14 Mar, 2015 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 [facility] [address] [id number] [address] [place] [phone] 12 Mar, 2015 [facility] [address] [id number] [address] [place] [phone] 11 Mar, 2015 [facility] [address] [id number] [address] [place] [phone] 11 Mar, 2015 [facility] [address] [id number] [address] [place] [phone] Mar, [facility] [address] [id number] [address] [place] [phone] Feb, [facility] [address] [id number] [address] [place] [phone] Feb, [facility] [address] [id number] [address] [place] [phone] Feb, [facility] [address] [id number] [address] [place] [phone] Jan, [facility] [address] [id number] [address] [place] [phone] Jan, Nausea 787.02 and Neuropathy 355.9 [facility] [address] [id number] [address] [place] [phone] Jan, [facility] [address] [id number] [address] [place] [phone] Jan, [facility] [address] [id number] [address] [place] [phone] Jan, [facility] [address] [id number] [address] [place] [phone] Jan, Dental examination V72.2 [facility] [address] [id number] [address] [place] [phone] Jan, [facility] [address] [id number] [address] [place] [phone] Dec, [facility] [address] [id number] [address] [place] [phone] Dec, [facility] [address] [id number] [address] [place] [phone] Dec, Neuropathy 355.9 [facility] [address] [address] [id number] [address] [place] [address] November, [facility] [address] [id number] [address] [place] [address] November, [facility] [address] [id number] [address] [place] [address], [place] [address] November, [facility] [address] [id number] [address] [place] [address], [place] [address] Oct, [facility] [address] [id number] [address] [place] [address], [place] [address] Oct, [facility] [address] [id number] [address] [place] [address], [place] [address] Sep, [facility] [address] [id number] [address] [place] [address], [place] [address] Sep, [facility] [address] [id number] [address] [place] [address], [place] [address] Sep, [facility] [address] [id number] [address] [place] [address], [place] [address] Sep, [facility] [address] [id number] [address] [place] [address], [place] [address] Sep, [facility] [address] [id number] [address] [place] [address], [place] [address] Sep, [facility] [address] [id number] [address] [place] [address], [place] [address] Sep, [facility] [address] [id number] [address] [place] [address], [place] [address] Sep, [facility] [address] [id number] [address] [place] [address], [place] [address] Aug, [facility] [address] [id number] [address] [place] [address], [place] [address] Aug, [facility] [address] [id number] [address] [place] [address], [place] [address] Aug, [facility] [address] [id number] [address] [place] [address], [place] [address] Aug, [facility] [address] [id number] [address] [place] [address], [place] [address] Aug, 2014 [facility] [address] [id number] [address] [place] [address], [place] [address] Aug, 2014 [facility] [address] [id number] [address] [place] [address], [place] [address] Aug, 2014 [facility] [address] [id number] [address] [place] [address], [place] [address] Aug, [facility] [address] [id number] [address] [place] [address], [place] [address] Jul, [facility] [address] [id number] [address] [place] [address], [place] [address] Jul, [facility] [address] [id number] [address] [place] [address], [place] [address] Jun, [facility] [address] [id number] [address] [place] [address], [place] [address] Jun, [facility] [address] [id number] [address] [place] [address], [place] [address] Jun, [facility] [address] [id number] [address] [place] [address], [place] [address] Jun, [facility] [address] [id number] [address] [place] [address], [place] [address] Jun, [facility] [address] [id number] [address] [place] [address], [place] [address] Jun, [facility] [address] [id number] [address] [place] [address], [place] [address] Jun, [facility] [address] [id number] [address] [place] [address], [place] [address] Jun, [facility] [address] [id number] [address] [place] [address], [place] [address] Jun, [facility] [address] [id number] [address] [place] [address], [place] [address] Jun, [facility] [address] [id number] [address] [place] [address], [place] [address] Jun, [facility] [address] [id number] [address] [place] [address], [place] [address] May, [facility] [address] [id number] [address] [place] [address], [place] [address] May, [facility] [address] [id number] [address] [place] [address], [place] [address] May, [facility] [address] [id number] [address] [place] [address], [place] [address] May, [facility] [address] [id number] [address] [place] [address], [place] [address] May, [facility] [address] [id number] [address] [place] [address], [place] [address] May, [facility] [address] [id number] [address] [place] [address], [place] [address] May, [facility] [address] [id number] [address] [place] [address], [place] [address] May, [facility] [address] [id number] [address] [place] [address], [place] [address] May, [facility] [address] [id number] [address] [place] [address], [place] [address] Apr, [facility] [address] [id number] [address] [place] [address], [place] [address] Apr, [facility] [address] [id number] [address] [place] [address], [place] [address] Apr, [facility] [address] [id number] [address] [place] [address], [place] [address] Apr, [facility] [address] [id number] [address] [place] [address], [place] [address] Apr, [facility] [address] [id number] [address] [place] [address], [place] [address] Mar, [facility] [address] [id number] [facility] [place] [address] Mar, [facility] [address] [id number] [address] [place] [address], [place] [address] Feb, [facility] [address] [id number] [address] [place] [address], [place] [address] Feb, [facility] [address] [id number] [address] [place] [address], [place] [address] Feb, [facility] [address] [id number] [address] [place] [address], [place] [address] Feb, [facility] [address] [id number] [address] [place] [address], [place] [address] Feb, [facility] [address] [id number] [address] [place] [address], [place] [address] Feb, [facility] [address] [id number] [address] [place] [address], [place] [address] Jan, [facility] [address] [id number] [address] [place] [address], [place] [address] Jan, [facility] [address] [id number] [address] [place] [address], [place] [address] Jan, [facility] [address] [id number] [address] [place] [address], [place] [address] Jan, [facility] [address] [id number] [address] [place] [address], [place] [address] Jan, [facility] [address] [id number] [address] [place] [address], [place] [address] Jan, [facility] [address] [id number] [address] [place] [address], [place] [address] Jan, [facility] [address] [id number] [address] [place] [address], [place] [address] Jan, [facility] [address] [id number] [facility] [place] [address] Jan, [facility] [address] [id number] [facility] [place] [address] Jan, [facility] [address] [id number] [facility] [place] [address] Jan, [facility] [address] [id number] [address] [place] [address], [place] [address] Dec, [facility] [address] [id number] [address] [place] [address], [place] [address] Dec, [facility] [address] [id number] [address] [place] [address], [place] [address] Dec, [facility] [address] [id number] [address] [place] [address], [place] [address] Dec, [facility] [address] [id number] [address] [place] [address], [place] [address] Dec, [facility] [address] [id number] [address] [place] [address], [place] [address] Dec, [facility] [address] [id number] [address] [place] [address], [place] [address] November, [facility] [address] [id number] [address] [place] [address], [place] [address] November, [facility] [address] [id number] [address] [place] [address], [place] [address] November, [facility] [address] [id number] [address] [place] [address], [place] [address] November, [facility] [address] [id number] [address] [place] [address], [place] [address] November, [facility] [address] [id number] [address] [place] [address], [place] [address] November, [facility] [address] [id number] [address] [place] [address], [place] [address] Oct, [facility] [address] [id number] [address] [place] [address], [place] [address] Oct, [facility] [address] [id number] [address] [place] [address], [place] [address] Oct, [facility] [address] [id number] [address] [place] [address], [place] [address] Oct, [facility] [address] [id number] [address] [place] [address], [place] [address] Sep, [facility] [address] [id number] [address] [place] [address], [place] [address] Sep, [facility] [address] [id number] [address] [place] [address], [place] [address] Sep, [facility] [address] [id number] [address] [place] [address], [place] [address] Sep, [facility] [address] [id number] [address] [place] [address], [place] [address] Sep, [facility] [address] [id number] [address] [place] [address], [place] [address] Aug, [facility] [address] [id number] [address] [place] [address], [place] [address] Aug, [facility] [address] [id number] [address] [place] [address], [place] [address] Aug, [facility] [address] [id number] [address] [place] [address], [place] [address] Aug, [facility] [address] [id number] [address] [place] [address], [place] [address] 14 Aug, 2013 [facility] [address] [place] [id number] May, [facility] [address] [id number] [address] [place] [address] May, [facility] [address] [id number] [address] [place] [address] 08 May, 2013 [facility] [address] [id number] [address] [place] [address], [place] [address] May, [facility] [address] [id number] [address] [place] [address], [place] [address] May, [facility] [address] [id number] [address] [place] [address], [place] [address] Apr, [facility] [address] [id number] [address] [place] [address], [place] [address] Apr, [facility] [address] [id number] [address] [place] [address], [place] [address] Apr, [facility] [address] [id number] [address] [place] [address], [place] [address] Apr, [facility] [address] [id number] [address] [place] [address], [place] [address] Apr, [facility] [address] [id number] [address] [place] [address], [place] [address] Apr, [facility] [address] [id number] [address] [place] [address], [place] [address] Apr, [facility] [address] [id number] [address] [place] [address], [place] [address] 28 Mar, 2013 [facility] [address] [id number] [address] [place] [address], [place] [address] 25 Sep, 2012 [facility] [address] [id number] [address] [place] [address], [place] [address] 24 Sep, 2012 [facility] [address] [id number] [address] [place] [address], [place] [address] 16 Sep, 2012 [facility] [address] [id number] [address] [place] [address], [place] [address] 12 Sep, 2012 [facility] [address] [id number] [address] [place] [address], [place] [address] 06 Sep, 2012 [facility] [address] [id number] [facility] [place] [address] Feb, [facility] [address] [id number] [facility] [place] [address] Feb, [facility] [address] [id number] [facility] [place] [address] Feb, [facility] [address] [id number] [address] [place] [address], [place] [address] Feb, [facility] [address] [id number] [address] [place] [address], [place] [address] Feb, [facility] [address] [id number] [address] [place] [address], [place] [address] Feb, [facility] [address] [id number] [address] [place] [address], [place] [address] Jan, [facility] [address] [id number] [address] [place] [address], [place] [address] Dec, [facility] [address] [id number] [address] [place] [address], [place] [address] Dec, [facility] [address] [id number] [address] [place] [address], [place] [address] Dec, [facility] [address] [id number] [address] [place] [address], [place] [address] Dec, [facility] [address] [id number] [address] [place] [address], [place] [address] Dec, [facility] [address] [id number] [address] [place] [address], [place] [address] 18 Dec, 2012 [facility] [address] [id number] [address] [place] [address], [place] [address] 17 Dec, 2012 [facility] [address] [id number] [address] [place] [address], [place] [address] Dec, [facility] [address] [id number] [address] [place] [address], [place] [address] Dec, [facility] [address] [id number] [address] [place] [address], [place] [address] November, [facility] [address] [id number] [address] [place] [address], [place] [address] November, [facility] [address] [id number] [address] [place] [address], [place] [address] Oct, [facility] [address] [id number] [address] [place] [address], [place] [address] Sep, [facility] [address] [id number] [address] [place] [address], [place] [address] Sep, [facility] [address] [id number] [address] [place] [address] Sep, [facility] [address] [id number] [address] [place] [address], [place] [address] Sep, [facility] [address] [id number] [address] [place] [address] Aug, [facility] [address] [id number] [address] [place] [address], [place] [address] Aug, [facility] [address] [id number] [address] [place] [address] Jul, [facility] [address] [id number] [address] [place] [address] Jul, [facility] [address] [id number] [address] [place] [address] Jul, [facility] [address] [id number] [address] [place] [address] Sep, [facility] [address] [id number] [address] [place] [address] 17 Sep, 2011 [facility] [address] [id number] [address] [place] [address] 10 Sep, 2011 IMMUNIZATIONS No Known Immunizations SOCIAL HISTORY Never Assessed REASON FOR VISIT EMR-Ryan PLAN OF CARE VITAL SIGNS MEDICATIONS Unknown [...] obstruction, Dehydration -VCH 01/01/17 Hospitalization History [facility]- UTI/Sepsis 01/18/2018 Hospitalization History [facility] - infection 4 days 05/2018
--- OUTSIDE RECORDS SUMMARY | 2020-01-14 23:11 | XMS REPORT ---
Author Author Melvin Hwang Doctor Organization [facility] Address Unknown Phone Unavailable Care Team Providers Care Road Roller Engineer Name Role Phone Migration, Doctor Unavailable Unavailable PROBLEMS Type Condition ICD9-CM Code YAR54-ZO Code Onset Dates Condition S tatus SNOMED Code Problem Primary insomnia F51.01 Active 193 765423 Problem Chronic fatigue, unspecified R53.82 A ctive 940324718 Problem Incontinence of feces, unspecified fecal incontinence type R15.9 Active 15680762 Problem Abdominal pain, left lower quadrant R10.32 Active 089077047 Problem Hypertension, benign I10 Active 77642949 Problem Mood disorder F39 Active 234220 05 Problem Attention to urostomy Z43.6 Active 003127255 Problem 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 067314141 Problem Chronic pain syndrome G89.4 Active 199347434 Problem Hydronephrosis with ureteral stricture, not else where classified N13.1 Active 02475149 Problem Neuropathy G62.9 Active 892515144 Problem Anxiety F41.9 Active 44537800 Problem Polyneuropathy G62.9 Active 03174 000 Problem Malignant neoplasm of colon, unspecified part of colon C18.9 Active 900513375 ALLERGIES No Information ENCOUNTERS Encounter Location Date Diagnosis [place] [address] [facility] [id number] [address] [place] [phone] Oct, Mood disorder F39 [facility] [address] [facility] [id number] [address] [place] [phone] Sep, [facility] [address] [facility] [id number] [address] [place] [phone] Sep, Neuropathy G62.9 [facility] [address] [facility] [id number] [address] [place] [phone] Sep, [facility] [address] [facility] [id number] [address] [place] [id number] Sep, H/O malignant carcinoid tumo r of rectum Z85.040 and Primary insomnia F51.01 [facility] [address] [id number] [address] [place] [phone] Aug, [facility] [address] [id number] [address] [place] [id number] Aug, Neuropathy G62.9 [facility] [address] [id number] [address] [place] [phone] Aug, [facility] [address] [id number] [address] [place] [phone] Jul, Non-recurrent acute suppurat francine otitis media of left ear without spontaneous rupture of tympanic membrane H66.002 [facility] [address] [id number] [address] [place] [id number] Jul, Neuropathy G62.9 [facility] [address] [id number] [address] [place] [phone] Jun, [facility] [address] [id number] [address] [place] [phone] Jun, [facility] [address] [id number] [address] [place] [phone] Jun, Neuropathy G62.9 [facility] [address] [id number] [address] [place] [phone] Jun, [facility] [address] [id number] [address] [place] [phone] Jun, [facility] [address] [id number] [address] [place] [phone] Jun, Lumbar neuritis M54.16 [facility] [address] [id number] [address] [place] [phone] May, Neuropathy G62.9 [facility] [address] [id number] [address] [place] [phone] May, [facility] [address] [place] [id number] [address] [place] [id number] 05 May, 2018 Neuropathy G62.9 and Hyperte nsion, benign I10 [place] [address] [place] [id number] [address] [place] [id number] 09 Apr, 2018 Polyneuropathy G62.9 and Hyp ertension, benign I10 [place] [address] [place] [id number] [address] [place] [id number] 17 Mar, 2018 Chronic pain syndrome G89.4 and Hypertension, benign I10 [place] [address] [place] [id number] [address] [place] [id number] 11 Mar, 2018 Polyneuropathy G62.9 and Hyp ertension, benign I10 [place] [address] [place] [id number] [address] [place] [phone] Feb, [place] [address] [id number] Feb, Hypertension, benign I10 [place] [address] [place] [id number] [place] [id number] 15 Feb, 2018 Hypertension, benign I10 ; P olyneuropathy G62.9 and Primary insomnia F51.01 [place] [address] [facility] [id number] [address] [place] [phone] Jan, Hypertension, benign I10 and Polyneuropathy G62.9 [place] [address] [place] [id number] [address] [place] [phone] Jan, Hypertension, benign I10 and Neuropathy G62.9 [place] [address] [facility] [id number] [address] [place] [phone] Jan, [place] [address] [place] [id number] [address] [place] [phone] Dec, Polyneuropathy G62.9 [place] [address] [place] [id number] [address] [place] [id number] 14 Dec, 2017 Mood disorder F39 [place] [address] [id number] [address] [place] [phone] November, Polyneuropathy G62.9 [facility] [address] [id number] [address] [place] [phone] November, Medicare annual wellness vis it, initial Z00.00 [facility] [address] [id number] [address] [place] [phone] November, Mood disorder F39 [facility] [address] [id number] [address] [place] [phone] Oct, Polyneuropathy G62.9 [facility] [address] [id number] [address] [place] [phone] Oct, [facility] [address] [id number] [address] [place] [phone] Oct, [facility] [address] [facility] [id number] [address] [place] [phone] Oct, Mood disorder F39 ; Attentio n to urostomy Z43.6 ; Chronic pain syndrome G89.4 and Polyneuropathy G62.9 [facility] [address] [id number] [address] [place] [phone] Sep, Polyneuropathy G62.9 [facility] [address] [id number] [address] [place] [phone] Sep, [facility] [address] [id number] [address] [place] [phone] Sep, Polyneuropathy G62.9 [facility] [address] [id number] [address] [place] [phone] Aug, Polyneuropathy G62.9 [facility] [address] [facility] [id number] [address] [place] [phone] Aug, Malignant neoplasm of colon, unspecified part of colon C18.9 and Polyneuropathy G62.9 [facility] [address] [id number] [address] [place] [id number] Aug, Neuropathy G62.9 and Polyneu ropathy G62.9 [facility] [address] [facility] [id number] [address] [place] [phone] Jul, Encounter for drug screening Z02.83 [facility] [address] [facility] [id number] [address] [place] [id number] Jul, Polyneuropathy G62.9 [facility] [address] [facility] [id number] [address] [place] [id number] Jul, [facility] [address] [facility] [id number] [address] [place] [phone] Jul, Neuropathy G62.9 and Anxiety F41.9 [facility] [address] [facility] [id number] [address] [place] [phone] Jul, [facility] [address] [facility] [id number] [address] [place] [phone] Jul, [facility] [address] [facility] [id number] [address] [place] [id number] Jul, [facility] [address] [facility] [id number] [address] [place] [id number] Jul, Polyneuropathy G62.9 [facility] [address] [facility] [id number] [address] [place] [phone] Jul, [facility] [address] [facility] [id number] [address] [place] [phone] Jun, [facility] [address] [facility] [id number] [address] [place] [phone] Jun, [facility] [address] [facility] [id number] [address] [place] [phone] Jun, [facility] [address] [id number] [address] [place] [address] 07 Jun, 2017 Encounter for dental examina tion Z01.20 [facility] [address] [place] [id number] [address] [place] [phone] Jun, Polyneuropathy G62.9 and Anx iety F41.9 [facility] [address] [facility] [id number] [address] [place] [phone] Jun, [facility] [address] [id number] [address] [place] [address] May, Dental examination Z01.20 [facility] [address] [place] [id number] [address] [place] [id number] May, Polyneuropathy G62.9 [facility] [address] [place] [id number] [address] [place] [address] Apr, Polyneuropathy G62.9 [facility] [address] [place] [id number] [address] [place] [phone] Apr, Polyneuropathy G62.9 [facility] [address] [place] [id number] [address] [place] [address] Apr, Hypertension, benign I10 ; P olyneuropathy G62.9 and Anxiety F41.9 [facility] [address] [place] [id number] [address] [place] [phone] Apr, Primary insomnia F51.01 and Polyneuropathy G62.9 [facility] [address] [place] [id number] [address] [place] [phone] Apr, Primary insomnia F51.01 and Polyneuropathy G62.9 [facility] [address] [facility] [id number] [address] [place] [phone] Mar, Primary insomnia F51.01 [facility] [address] [place] [id number] [address] [place] [id number] Mar, [facility] [address] [place] [id number] [address] [place] [id number] Mar, Polyneuropathy G62.9 [facility] [address] [place] [id number] [address] [place] [address], [place] [address] Feb, Primary insomnia F51.01 [facility] [address] [id number] [address] [place] [address], [place] [id number] Feb, [facility] [address] [id number] [address] [place] [address], [place] [id number] Feb, [facility] [address] [id number] [address] [place] [address], [place] [id number] Feb, Polyneuropathy G62.9 [facility] [address] [id number] [address] [place] [address], [place] [address] Feb, Primary insomnia F51.01 [facility] [address] [id number] [address] [place] [address], [place] [id number] Jan, [facility] [address] [id number] [address] [place] [address], [place] [id number] Jan, [facility] [address] [id number] [address] [place] [address], [place] [id number] Dec, [facility] [address] [id number] [address] [place] [address], [place] [address] Dec, Primary insomnia F51.01 [facility] [address] [id number] [address] [place] [address], [place] [address] Dec, Primary insomnia F51.01 [facility] [address] [id number] [address] [place] [address], [place] [address] Dec, [facility] [address] [id number] [address] [place] [address], [place] [id number] Dec, [facility] [address] [id number] [address] [place] [phone] Dec, [facility] [address] [id number] [address] [place] [address], [place] [address] Dec, [facility] [address] [id number] [address] [place] [phone] November, Primary insomnia F51.01 and Polyneuropathy G62.9 [facility] [address] [facility] [id number] [address] [place] [phone] November, [facility] [address] [facility] [id number] [address] [place] [id number] November, Abdominal pain, left lower q uadrant R10.32 [facility] [address] [place] [id number] [address] [place] [phone] November, [facility] [address] [facility] [id number] [address] [place] [id number] Oct, [facility] [address] [facility] [id number] [address] [place] [address] Oct, Abdominal pain, left lower q uadrant R10.32 ; H/O malignant carcinoid tumor of rectum Z85.040 and Neuropathy G62.9 [facility] [address] [place] [id number] [address] [place] [phone] Oct, [facility] [address] [facility] [id number] [address] [place] [id number] Sep, [facility] [address] [place] [id number] [place] [id number] Sep, [facility] [address] [place] [id number] [address] [place] [phone] Sep, [facility] [address] [place] [id number] [address] [place] [phone] Aug, [facility] [address] [facility] [id number] [address] [place] [phone] Aug, [facility] [address] [place] [id number] [address] [place] [id number] Aug, Abdominal pain, left lower q uadrant R10.32 ; Neuropathy G62.9 and Anxiety F41.9 [facility] [address] [place] [address] Jul, [facility] [address] [id number] [address] [place] [phone] Jul, [facility] [address] [id number] [address] [place] [address] Jul, [facility] [address] [id number] [address] [place] [id number] Jul, [facility] [address] [id number] [address] [place] [phone] Jul, [facility] [address] [id number] [address] [place] [phone] Jun, [facility] [address] [id number] [address] [place] [phone] May, [facility] [address] [id number] [address] [place] [phone] May, [facility] [address] [id number] [address] [place] [address] Apr, [facility] [address] [id number] [address] [place] [address] Apr, Muscle spasms of both lower extremities M62.838 and Cellulitis, unspecified cellulitis site L03.90 [facility] [address] [id number] [address] [place] [address] Apr, [facility] [address] [id number] [address] [place] [phone] 23 Mar, 2016 Generalized abdominal pain R 10.84 [facility] [address] [id number] [address] [place] [phone] 20 Mar, 2016 [facility] [address] [id number] [address] [place] [phone] 14 Mar, 2016 [facility] [address] [id number] [address] [place] [phone] 14 Mar, 2016 [facility] [address] [id number] [address] [place] [id number] 13 Mar, 2016 [facility] [address] [id number] [address] [place] [address], [place] [id number] 12 Mar, 2016 [facility] [address] [id number] [address] [place] [address], [place] [id number] Mar, [facility] [address] [id number] [address] [place] [address], [place] [id number] Mar, [facility] [address] [id number] [address] [place] [phone] Feb, Other specified diseases of anus and rectum K62.89 [facility] [address] [id number] [address] [place] [phone] Feb, [facility] [address] [id number] [address] [place] [phone] Feb, Dizziness R42 [facility] [address] [id number] [address] [place] [phone] Feb, [facility] [address] [id number] [address] [place] [id number] Jan, Polyneuropathy G62.9 [facility] [address] [id number] [address] [place] [phone] Jan, Other specified diseases of anus and rectum K62.89 [facility] [address] [id number] [address] [place] [phone] Jan, [facility] [address] [id number] [address] [place] [id number] Jan, [facility] [address] [id number] [address] [place] [phone] Jan, [facility] [address] [id number] [address] [place] [phone] Jan, Dizziness R42 [facility] [address] [id number] [address] [place] [phone] Dec, [facility] [address] [id number] [address] [place] [address], [place] [id number] Dec, [facility] [address] [id number] [address] [place] [address], [place] [address] Dec, [facility] [address] [id number] [address] [place] [address], [place] [address] Dec, Dizziness R42 [facility] [address] [id number] [address] [place] [address], [place] [address] November, [facility] [address] [id number] [address] [place] [address], [place] [id number] Oct, [facility] [address] [id number] [address] [place] [address], [place] [id number] Oct, [facility] [address] [id number] [address] [place] [address], [place] [address] Oct, [facility] [address] [id number] [address] [place] [address], [place] [address] Oct, [facility] [address] [id number] [address] [place] [address], [place] [address] Sep, [facility] [address] [id number] [address] [place] [address] Sep, Primary insomnia F51.01 [facility] [address] [id number] [address] [place] [id number] Sep, Primary insomnia F51.01 [facility] [address] [id number] [address] [place] [id number] Sep, [facility] [address] [id number] [address] [place] [address], [place] [address] Aug, [facility] [address] [id number] [address] [place] [phone] Aug, [facility] [address] [id number] [address] [place] [id number] Aug, Primary insomnia F51.01 ; Mo od disorder F39 ; Nausea and vomiting, unspecified intactability, vomiting of unspecified type R11.2 and Diarrhea R19.7 [facility] [address] [id number] 15 Aug, 2015 [facility] [address] [id number] Aug, Folliculitis L73.9 [facility] [address] [id number] Aug, [facility] [address] [id number] Aug, [facility] [address] [id number] Jul, Folliculitis L73.9 [facility] [address] [id number] Jul, [facility] [address] [id number] Jun, Folliculitis L73.9 [facility] [address] [id number] Jun, [facility] [address] [id number] May, Polyneuropathy G62.9 [facility] [address] [id number] May, Other specified diseases of anus and rectum K62.89 [facility] [address] [id number] May, [facility] [address] [id number] May, Primary insomnia F51.01 [facility] [address] [id number] May, [facility] [address] [id number] [address] [place] [id number] May, [facility] [address] [id number] [address] [place] [address] Apr, Other specified diseases of anus and rectum K62.89 ; Chronic fatigue R53.82 ; Urinary tract infection, site not specified N39.0 and Enterococcus as the cause of diseases classified elsewhere B95.2 [facility] [address] [id number] [address] [place] [id number] 16 Apr, 2015 [facility] [address] [id number] [address] [place] [id number] 15 Apr, 2015 [facility] [address] [id number] [address] [place] [id number] Apr, 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 [facility] [address] [id number] [address] [place] [id number] Apr, [facility] [address] [id number] [address] [place] [phone] 26 Mar, 2015 [facility] [address] [id number] [address] [place] [phone] 23 Mar, 2015 [facility] [address] [id number] [address] [place] [phone] 17 Mar, 2015 [facility] [address] [id number] [address] [place] [id number] 14 Mar, 2015 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 [facility] [address] [id number] [address] [place] [phone] 12 Mar, 2015 [facility] [address] [id number] [address] [place] [phone] 11 Mar, 2015 [facility] [address] [id number] [address] [place] [phone] 11 Mar, 2015 [facility] [address] [id number] [address] [place] [phone] Mar, [facility] [address] [id number] [address] [place] [phone] Feb, [facility] [address] [id number] [address] [place] [phone] Feb, [facility] [address] [id number] [address] [place] [phone] Feb, [facility] [address] [id number] [address] [place] [phone] Jan, [facility] [address] [id number] [address] [place] [phone] Jan, Nausea 787.02 and Neuropathy 355.9 [facility] [address] [id number] [address] [place] [phone] Jan, [facility] [address] [id number] [address] [place] [phone] Jan, [facility] [address] [id number] [address] [place] [phone] Jan, [facility] [address] [id number] [address] [place] [id number] Jan, Dental examination V72.2 [facility] [address] [id number] [address] [place] [phone] Jan, [facility] [address] [id number] [address] [place] [phone] Dec, [facility] [address] [address] [id number] [address] [place] [id number] Dec, [facility] [address] [id number] [address] [place] [id number] Dec, Neuropathy 355.9 [facility] [address] [id number] [address] [place] [id number] November, [facility] [address] [id number] [address] [place] [id number] November, [facility] [address] [id number] [address] [place] [address], [place] [address] November, [facility] [address] [id number] [address] [place] [address], [place] [address] Oct, [facility] [address] [id number] [address] [place] [address], [place] [address] Oct, [facility] [address] [id number] [address] [place] [address], [place] [address] Sep, [facility] [address] [id number] [address] [place] [address], [place] [address] Sep, [facility] [address] [id number] [address] [place] [address], [place] [address] Sep, [facility] [address] [id number] [address] [place] [address], [place] [address] Sep, [facility] [address] [id number] [address] [place] [address], [place] [address] Sep, [facility] [address] [id number] [address] [place] [address], [place] [address] Sep, [facility] [address] [id number] [address] [place] [address], [place] [address] Sep, [facility] [address] [id number] [address] [place] [address], [place] [address] Sep, [facility] [address] [id number] [address] [place] [id number] Aug, [facility] [address] [id number] [address] [place] [address], [place] [address] Aug, [facility] [address] [id number] [address] [place] [address], [place] [address] Aug, [facility] [address] [id number] [address] [place] [address], [place] [address] Aug, [facility] [address] [id number] [address] [place] [address], [place] [address] Aug, 2014 [facility] [address] [id number] [address] [place] [address], [place] [address] Aug, 2014 [facility] [address] [id number] [address] [place] [address], [place] [address] Aug, 2014 [facility] [address] [id number] [address] [place] [address], [place] [address] Aug, 2014 [facility] [address] [id number] [address] [place] [address], [place] [address] Jul, [facility] [address] [id number] [address] [place] [address], [place] [address] Jul, [facility] [address] [id number] [address] [place] [address], [place] [address] Jun, [facility] [address] [id number] [address] [place] [address], [place] [address] Jun, [facility] [address] [id number] [address] [place] [address], [place] [address] Jun, [facility] [address] [id number] [address] [place] [address], [place] [address] Jun, [facility] [address] [id number] [address] [place] [address], [place] [address] Jun, [facility] [address] [id number] [address] [place] [address], [place] [address] Jun, [facility] [address] [id number] [address] [place] [address], [place] [address] Jun, [facility] [address] [id number] [address] [place] [address], [place] [address] Jun, [facility] [address] [id number] [address] [place] [address], [place] [address] Jun, [facility] [address] [id number] [address] [place] [address], [place] [address] Jun, [facility] [address] [id number] [address] [place] [address], [place] [address] Jun, [facility] [address] [id number] [address] [place] [address], [place] [address] May, [facility] [address] [id number] [address] [place] [address], [place] [address] May, [facility] [address] [id number] [address] [place] [address], [place] [address] May, [facility] [address] [id number] [address] [place] [address], [place] [address] May, [facility] [address] [id number] [address] [place] [address], [place] [address] May, [facility] [address] [id number] [address] [place] [address], [place] [address] May, [facility] [address] [id number] [address] [place] [address], [place] [address] May, [facility] [address] [id number] [address] [place] [address], [place] [address] May, [facility] [address] [id number] [address] [place] [id number] May, [facility] [address] [id number] [address] [place] [id number] Apr, [facility] [address] [id number] [address] [place] [id number] Apr, [facility] [address] [id number] [address] [place] [address], [place] [address] Apr, [facility] [address] [id number] [address] [place] [address], [place] [address] Apr, [facility] [address] [id number] [address] [place] [id number] Apr, [facility] [address] [id number] [address] [place] [id number] Mar, [facility] [address] [id number] [facility] [address] Mar, [facility] [address] [id number] [address] [place] [address], [place] [address] Feb, [facility] [address] [id number] [address] [place] [address], [place] [address] Feb, [facility] [address] [id number] [address] [place] [address], [place] [address] Feb, [facility] [address] [id number] [address] [place] [address], [place] [address] Feb, [facility] [address] [id number] [address] [place] [address], [place] [address] Feb, [facility] [address] [id number] [address] [place] [address], [place] [address] Feb, [facility] [address] [id number] [address] [place] [address], [place] [address] Jan, [facility] [address] [id number] [address] [place] [address], [place] [address] Jan, [facility] [address] [id number] [address] [place] [address], [place] [address] Jan, [facility] [address] [id number] [address] [place] [address], [place] [address] Jan, [facility] [address] [id number] [address] [place] [address], [place] [address] Jan, [facility] [address] [id number] [address] [place] [address], [place] [address] Jan, [facility] [address] [id number] [address] [place] [address], [place] [address] Jan, [facility] [address] [id number] [address] [place] [address], [place] [address] Jan, [facility] [address] [id number] [facility] [address] Jan, [facility] [address] [id number] [facility] [address] Jan, [facility] [address] [id number] [facility] [address] Jan, [facility] [address] [id number] [facility] [address] Dec, [facility] [address] [id number] [facility] [address] Dec, [facility] [address] [id number] [facility] [address] Dec, [facility] [address] [id number] [address] [place] [address], [place] [address] Dec, [facility] [address] [id number] [address] [place] [address], [place] [address] Dec, [facility] [address] [id number] [address] [place] [address], [place] [address] Dec, [facility] [address] [id number] [address] [place] [address], [place] [address] November, [facility] [address] [id number] [address] [place] [address], [place] [address] November, [facility] [address] [id number] [address] [place] [address], [place] [address] November, [facility] [address] [id number] [address] [place] [address], [place] [address] November, [facility] [address] [id number] [address] [place] [address], [place] [address] November, [facility] [address] [id number] [address] [place] [address], [place] [address] November, [facility] [address] [id number] [address] [place] [address], [place] [address] Oct, [facility] [address] [id number] [facility] [address] 30 Oct, 2013 [facility] [address] [id number] [address] [place] [address], [place] [address] Oct, [facility] [address] [id number] [facility] [address] Oct, [facility] [address] [id number] [address] [place] [address], [place] [address] Sep, [facility] [address] [id number] [facility] [address] Sep, [facility] [address] [id number] [address] [place] [address], [place] [address] Sep, [facility] [address] [id number] [address] [place] [address], [place] [address] Sep, [facility] [address] [id number] [address] [place] [address], [place] [address] Sep, [facility] [address] [id number] [address] [place] [address], [place] [address] Aug, [facility] [address] [id number] [address] [place] [address], [place] [address] Aug, [facility] [address] [id number] [address] [place] [address], [place] [address] Aug, [facility] [address] [id number] [address] [place] [address], [place] [address] Aug, [facility] [address] [id number] [address] [place] [address], [place] [address] 14 Aug, 2013 [facility] [address] [place], [place] [id number] May, [facility] [address] [id number] [address] [place] [address], [place] [address] May, [facility] [address] [id number] [address] [place] [address], [place] [address] 08 May, 2013 [facility] [address] [id number] [address] [place] [address], [place] [address] May, [facility] [address] [id number] [address] [place] [address], [place] [address] May, [facility] [address] [id number] [address] [place] [address], [place] [address] Apr, [facility] [address] [id number] [address] [place] [address], [place] [address] Apr, [facility] [address] [id number] [address] [place] [address], [place] [address] Apr, [facility] [address] [id number] [address] [place] [address], [place] [address] Apr, [facility] [address] [id number] [address] [place] [address], [place] [address] Apr, [facility] [address] [id number] [address] [place] [address], [place] [address] Apr, [facility] [address] [id number] [address] [place] [address], [place] [address] Apr, [facility] [address] [id number] [address] [place] [address], [place] [address] 28 Mar, 2013 [facility] [address] [id number] [address] [place] [address], [place] [address] 25 Mar, 2012 [facility] [address] [id number] [address] [place] [address], [place] [address] 24 Sep, 2012 [facility] [address] [id number] [address] [place] [address], [place] [address] 16 Sep, 2012 [facility] [address] [id number] [address] [place] [address], [place] [address] 12 Sep, 2012 [facility] [address] [id number] [address] [place] [address], [place] [address] 06 Mar, 2013 [facility] [address] [id number] [address] [place] [address], [place] [address] Feb, [facility] [address] [id number] [address] [place] [address], [place] [address] Feb, [facility] [address] [id number] [address] [place] [address], [place] [address] Feb, [facility] [address] [id number] [address] [place] [address], [place] [address] Feb, [facility] [address] [id number] [address] [place] [address], [place] [address] Feb, [facility] [address] [id number] [address] [place] [address], [place] [address] Feb, [facility] [address] [id number] [address] [place] [address], [place] [address] Jan, [facility] [address] [id number] [address] [place] [address], [place] [address] Dec, [facility] [address] [id number] [address] [place] [address], [place] [address] Dec, [facility] [address] [id number] [address] [place] [address], [place] [address] Dec, [facility] [address] [id number] [address] [place] [address], [place] [address] Dec, [facility] [address] [id number] [address] [place] [address], [place] [address] Dec, [facility] [address] [id number] [address] [place] [address], [place] [address] 18 Dec, 2012 [facility] [address] [id number] [address] [place] [address], [place] [address] 17 Dec, 2012 [facility] [address] [id number] [address] [place] [address], [place] [address] 12 Dec, 2012 [facility] [address] [id number] [address] [address] Dec, [facility] [address] [id number] [address] [place] [address], [place] [address] November, [facility] [address] [id number] [address] [place] [id number] November, [facility] [address] [id number] [address] [place] [id number] Oct, [facility] [address] [id number] [address] [place] [id number] Sep, [facility] [address] [id number] [address] [place] [address], [place] [address] Sep, [facility] [address] [id number] [address] [place] [id number] Sep, [facility] [address] [id number] [address] [place] [id number] Sep, [facility] [address] [id number] [address] [place] [id number] Aug, [facility] [address] [id number] [address] [place] [id number] Aug, [facility] [address] [id number] [address] [place] [id number] Jul, [facility] [address] [id number] [address] [place] [id number] Jul, [facility] [address] [id number] [address] [place] [id number] Jul, [facility] [address] [id number] [address] [place] [id number] Sep, [facility] [address] [id number] [address] [place] [id number] 17 Sep, 2011 [facility] [address] [id number] [address] [place] [id number] 10 Sep, 2011 IMMUNIZATIONS No Known Immunizations SOCIAL HISTORY Never Assessed REASON FOR VISIT [facility] [place] PLAN OF CARE VITAL SIGNS MEDICATIONS [...] bowel obstruction, Dehydration -VCH 01/01/17 Hospitalization History [facility], [place], operated by [facility]- UTI/Sepsis 01/18/2018 Hospitalization History [facility] - infection 4 days 05/2018
--- OUTSIDE RECORDS SUMMARY | 2020-01-14 23:11 | XMS REPORT ---
Author Author Melvin Hwang Doctor Organization [facility] Address Unknown Phone Unavailable Care Team Providers Care Email Administrator Name Role Phone Migration, Doctor Unavailable Unavailable PROBLEMS Type Condition ICD9-CM Code UHO62-RL Code Onset Dates Condition S tatus SNOMED Code Problem Primary insomnia F51.01 Active 193 657642 Problem Chronic fatigue, unspecified R53.82 A ctive 662751615 Problem Incontinence of feces, unspecified fecal incontinence type R15.9 Active 18735765 Problem Abdominal pain, left lower quadrant R10.32 Active 911564692 Problem Hypertension, benign I10 Active 16758335 Problem Mood disorder F39 Active 802394 05 Problem Attention to urostomy Z43.6 Active 272252837 Problem 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 954123278 Problem Chronic pain syndrome G89.4 Active 661356655 Problem Hydronephrosis with ureteral stricture, not else where classified N13.1 Active 74834731 Problem Neuropathy G62.9 Active 638080820 Problem Anxiety F41.9 Active 56032525 Problem Polyneuropathy G62.9 Active 03235 000 Problem Malignant neoplasm of colon, unspecified part of colon C18.9 Active [id number] ALLERGIES No Information ENCOUNTERS Encounter Location Date Diagnosis [place] [id number] [facility] [id number] [address] [place] [phone] Sep, [facility] [place] [address] [facility] [id number] [address] [place] [phone] Sep, Neuropathy G62.9 [facility] [place] [address] [facility] [id number] [address] [place] [phone] Sep, [facility] [place] [address] [facility] [id number] [address] [place] [phone] Sep, H/O malignant carcinoid tumo r of rectum Z85.040 and Primary insomnia F51.01 [place] [address] [id number] [address] [place] [phone] Aug, [facility] [place] [address] [id number] [address] [place] [phone] Aug, Neuropathy G62.9 [facility] [place] [address] [id number] [address] [place] [phone] Aug, [facility] [place] [address] [id number] [address] [place] [phone] Jul, Non-recurrent acute suppurat francine otitis media of left ear without spontaneous rupture of tympanic membrane H66.002 [facility] [place] [address] [id number] [address] [place] [phone] Jul, Neuropathy G62.9 [facility] [place] [address] [id number] [address] [place] [phone] Jun, [facility] [place] [address] [id number] [address] [place] [phone] Jun, [facility] [place] [address] [id number] [address] [place] [phone] Jun, Neuropathy G62.9 [facility] [place] [address] [id number] [address] [place] [phone] Jun, [facility] [place] [address] [id number] [address] [place] [id number] Jun, [facility] [place] [address] [id number] [address] [place] [phone] Jun, Lumbar neuritis M54.16 [facility] [place] [address] [id number] [address] [place] [phone] May, Neuropathy G62.9 [facility] [place] [address] [facility] [id number] [address] [place] [phone] May, [facility] [place] [address] [id number] [address] [place] [phone] May, Neuropathy G62.9 and Hyperte nsion, benign I10 [facility] [place] [address] [facility] [id number] [address] [place] [phone] 09 Apr, 2018 Polyneuropathy G62.9 and Hyp ertension, benign I10 [facility] [place] [address] [place] [id number] [address] [place] [phone] 17 Mar, 2018 Chronic pain syndrome G89.4 and Hypertension, benign I10 [facility] [place] [address] [place] [id number] [place] [phone] 11 Mar, 2018 Polyneuropathy G62.9 and Hyp ertension, benign I10 [facility] [place] [address] [place] [id number] [address] [place] [phone] Feb, [facility] [place] [address] [place] [id number] [place] [phone] Feb, Hypertension, benign I10 [facility] [place] [address] [place] [id number] [place] [phone] Feb, Hypertension, benign I10 ; P olyneuropathy G62.9 and Primary insomnia F51.01 [facility] [place] [address] [place] [id number] [address] [place] [phone] Jan, Hypertension, benign I10 and Polyneuropathy G62.9 [facility] [place] [address] [place] [id number] [address] [place] [phone] Jan, Hypertension, benign I10 and Neuropathy G62.9 [facility] [place] [address] [place] [id number] [address] [place] [phone] Jan, [facility] [place] [address] [place] [id number] [address] [place] [phone] Dec, Polyneuropathy G62.9 [facility] [place] [address] [place] [id number] [address] [place] [phone] Dec, Mood disorder F39 [facility] [place] [address] [place] [id number] [address] [place] [phone] November, Polyneuropathy G62.9 [facility] [place] [address] [facility] [id number] [address] [place] [phone] November, Medicare annual wellness vis it, initial Z00.00 [facility] [place] [address] [facility] [id number] [address] [place] [phone] November, Mood disorder F39 [facility] [place] [address] [facility] [id number] [address] [place] [phone] Oct, Polyneuropathy G62.9 [facility] [place] [address] [facility] [id number] [address] [place] [phone] Oct, [facility] [place] [address] [facility] [id number] [address] [place] [phone] Oct, [facility] [place] [address] [facility] [id number] [address] [place] [phone] Oct, Mood disorder F39 ; Attentio n to urostomy Z43.6 ; Chronic pain syndrome G89.4 and Polyneuropathy G62.9 [facility] [place] [address] [facility] [id number] [address] [place] [phone] Sep, Polyneuropathy G62.9 [facility] [place] [address] [facility] [id number] [address] [place] [phone] Sep, [facility] [place] [address] [facility] [id number] [address] [place] [phone] Sep, Polyneuropathy G62.9 [facility] [place] [address] [facility] [id number] [address] [place] [phone] Aug, Polyneuropathy G62.9 [facility] [place] [address] [facility] [id number] [address] [place] [phone] Aug, Malignant neoplasm of colon, unspecified part of colon C18.9 and Polyneuropathy G62.9 [facility] [place] [address] [facility] [id number] [address] [place] [phone] Aug, Neuropathy G62.9 and Polyneu ropathy G62.9 [facility] [place] [address] [id number] [address] [place] [phone] Jul, Encounter for drug screening Z02.83 [facility] [place] [address] [facility] [id number] [address] [place] [phone] Jul, Polyneuropathy G62.9 [facility] [place] [address] [facility] [id number] [address] [place] [phone] Jul, [facility] [place] [address] [facility] [id number] [address] [place] [phone] Jul, Neuropathy G62.9 and Anxiety F41.9 [facility] [place] [address] [facility] [id number] [address] [place] [phone] Jul, [facility] [place] [address] [facility] [id number] [address] [place] [phone] Jul, [facility] [place] [address] [facility] [id number] [address] [place] [phone] Jul, [facility] [place] [address] [facility] [id number] [address] [place] [phone] Jul, Polyneuropathy G62.9 [facility] [place] [address] [facility] [id number] [address] [place] [phone] Jul, [facility] [place] [address] [facility] [id number] [address] [place] [phone] Jun, [facility] [place] [address] [facility] [id number] [address] [place] [phone] Jun, [facility] [place] [address] [facility] [id number] [address] [place] [phone] Jun, [facility] [address] [id number] [place] [address] 07 Jun, 2017 Encounter for dental examina tion Z01.20 [facility] [place] [address] [facility] [id number] [address] [place] [phone] Jun, Polyneuropathy G62.9 and Anx iety F41.9 [facility] [place] [address] [facility] [id number] [address] [place] [phone] Jun, [facility] [address] [place] [id number] [address] May, Dental examination Z01.20 [facility] [place] [address] [place] [id number] [address] [place] [phone] May, Polyneuropathy G62.9 [facility] [place] [address] [place] [id number] [address] [place] [phone] Apr, Polyneuropathy G62.9 [facility] [place] [address] [place] [id number] [address] [place] [phone] Apr, Polyneuropathy G62.9 [facility] [place] [address] [place] [id number] [address] [place] [phone] Apr, Hypertension, benign I10 ; P olyneuropathy G62.9 and Anxiety F41.9 [facility] [place] [address] [place] [id number] [address] [place] [phone] Apr, Primary insomnia F51.01 and Polyneuropathy G62.9 [facility] [place] [address] [place] [id number] [address] [place] [phone] Apr, Primary insomnia F51.01 and Polyneuropathy G62.9 [facility] [place] [address] [place] [phone] Mar, Primary insomnia F51.01 [facility] [place] [address] [facility] [id number] [address] [place] [phone] Mar, [facility] [place] [address] [place] [id number] [address] [place] [phone] Mar, Polyneuropathy G62.9 [facility] [place] [address] [facility] [id number] [address] [place] [phone] Feb, Primary insomnia F51.01 [facility] [place] [address] [place] [phone] Feb, [facility] [place] [address] [id number] [address] [place] [phone] Feb, [facility] [place] [address] [id number] [address] [place] [phone] Feb, Polyneuropathy G62.9 [facility] [place] [address] [id number] [address] [place] [address], [place] [address] Feb, Primary insomnia F51.01 [facility] [place] [address] [id number] [address] [place] [address], [place] [address] Jan, [facility] [place] [address] [id number] [address] [place] [phone] Jan, [facility] [place] [address] [facility] [id number] [address] [place] [address], [place] [address] Dec, [facility] [place] [address] [id number] [address] [place] [phone] Dec, Primary insomnia F51.01 [facility] [place] [address] [id number] [address] [place] [address], [place] [address] Dec, Primary insomnia F51.01 [facility] [place] [address] [id number] [address] [place] [phone] Dec, [facility] [place] [address] [facility] [id number] [address] [place] [phone] Dec, [facility] [place] [address] [facility] [id number] [address] [place] [phone] Dec, [facility] [place] [address] [id number] [address] [place] [id number] Dec, [facility] [place] [address] [facility] [id number] [address] [place] [phone] November, Primary insomnia F51.01 and Polyneuropathy G62.9 [facility] [place] [address] [id number] [address] [place] [phone] November, [facility] [place] [address] [id number] [address] [place] [id number] November, Abdominal pain, left lower q uadrant R10.32 [facility] [place] [address] [id number] [address] [place] [phone] November, [facility] [place] [address] [id number] [address] [place] [id number] Oct, [facility] [place] [address] [id number] [address] [place] [phone] Oct, Abdominal pain, left lower q uadrant R10.32 ; H/O malignant carcinoid tumor of rectum Z85.040 and Neuropathy G62.9 [facility] [place] [address] [id number] [address] [place] [phone] Oct, [facility] [place] [address] [facility] [id number] [address] [place] [phone] Sep, [facility] [address] [id number] [id number] Sep, [facility] [place] [address] [id number] [address] [place] [phone] Sep, [facility] [place] [address] [id number] [address] [place] [phone] Aug, [facility] [place] [address] [facility] [id number] [address] [place] [phone] Aug, [facility] [place] [address] [id number] [address] [place] [phone] Aug, Abdominal pain, left lower q uadrant R10.32 ; Neuropathy G62.9 and Anxiety F41.9 [facility] [address] [place] [address] Jul, [facility] [place] [address] [facility] [id number] [address] [place] [id number] Jul, [facility] [address] [id number] [address] [place] [phone] Jul, [facility] [place] [address] [id number] [address] [place] [phone] Jul, [facility] [place] [address] [id number] [address] [place] [phone] Jul, [facility] [place] [address] [id number] [address] [place] [phone] Jun, [facility] [place] [address] [id number] [address] [place] [phone] May, [facility] [place] [address] [id number] [address] [place] [id number] May, [facility] [place] [address] [id number] [address] [place] [phone] Apr, [facility] [place] [address] [id number] [address] [place] [id number] Apr, Muscle spasms of both lower extremities M62.838 and Cellulitis, unspecified cellulitis site L03.90 [facility] [place] [address] [id number] [address] [place] [phone] Apr, [facility] [place] [address] [id number] [address] [place] [id number] 23 Mar, 2016 Generalized abdominal pain R 10.84 [facility] [place] [address] [id number] [address] [place] [phone] 20 Mar, 2016 [facility] [place] [address] [id number] [address] [place] [id number] 14 Mar, 2016 [facility] [place] [address] [id number] [address] [place] [id number] 14 Mar, 2016 [facility] [place] [address] [id number] [address] [place] [id number] 13 Mar, 2016 [facility] [place] [address] [id number] [address] [place] [id number] Mar, [facility] [place] [address] [id number] [address] [place] [id number] Mar, [facility] [place] [address] [id number] [address] [place] [phone] Mar, [facility] [place] [address] [id number] [address] [place] [id number] Feb, Other specified diseases of anus and rectum K62.89 [facility] [place] [address] [id number] [address] [place] [id number] Feb, [facility] [place] [address] [id number] [address] [place] [phone] Feb, Dizziness R42 [facility] [place] [address] [id number] [address] [place] [phone] Feb, [facility] [place] [address] [id number] [address] [place] [phone] Jan, Polyneuropathy G62.9 [facility] [place] [address] [id number] [address] [place] [id number] Jan, Other specified diseases of anus and rectum K62.89 [facility] [place] [address] [id number] [address] [place] [phone] Jan, [facility] [address] [id number] [address] [place] [phone] Jan, [facility] [place] [address] [id number] [address] [place] [phone] Jan, [facility] [place] [address] [id number] [address] [place] [phone] Jan, Dizziness R42 [facility] [facility] [place] [address] [id number] [address] [place] [phone] Dec, [facility] [place] [address] [id number] [address] [place] [phone] Dec, [facility] [place] [address] [id number] [address] [place] [phone] Dec, [facility] [place] [address] [id number] [address] [place] [phone] Dec, Dizziness R42 [facility] [place] [address] [facility] [id number] [address] [place] [phone] November, [facility] [place] [address] [facility] [id number] [address] [place] [phone] Oct, [facility] [place] [address] [id number] [address] [place] [phone] Oct, [facility] [place] [address] [facility] [id number] [address] [place] [phone] Oct, [facility] [place] [address] [facility] [id number] [address] [place] [phone] Oct, [facility] [place] [address] [facility] [id number] [address] [place] [phone] Sep, [facility] [place] [address] [facility] [id number] [address] [place] [id number] Sep, Primary insomnia F51.01 [facility] [place] [address] [place] [id number] [address] [place] [id number] Sep, Primary insomnia F51.01 [facility] [place] [address] [facility] [id number] [address] [place] [phone] Sep, [facility] [place] [address] [facility] [id number] [address] [place] [phone] Aug, [facility] [place] [address] [facility] [id number] [address] [place] [phone] Aug, [facility] [place] [address] [facility] [id number] [address] [place] [phone] Aug, Primary insomnia F51.01 ; Mo od disorder F39 ; Nausea and vomiting, unspecified intactability, vomiting of unspecified type R11.2 and Diarrhea R19.7 [facility] [place] [address] [id number] [address] [place] [phone] 15 Aug, 2015 [facility] [place] [address] [facility] [id number] [address] [place] [phone] 05 Aug, 2015 Folliculitis L73.9 [facility] [place] [address] [facility] [id number] [address] [place] [phone] Aug, [facility] [place] [address] [facility] [id number] [address] [place] [phone] Aug, [facility] [place] [address] [facility] [id number] [address] [place] [phone] Jul, Folliculitis L73.9 [facility] [place] [address] [facility] [id number] [address] [place] [phone] Jul, [facility] [place] [address] [facility] [id number] [address] [place] [phone] Jun, Folliculitis L73.9 [facility] [place] [address] [facility] [id number] [address] [place] [phone] Jun, [facility] [place] [address] [facility] [id number] [address] [place] [phone] May, Polyneuropathy G62.9 [facility] [place] [address] [facility] [id number] [address] [place] [phone] May, Other specified diseases of anus and rectum K62.89 [facility] [place] [address] [facility] [id number] [address] [place] [phone] May, [facility] [place] [address] [facility] [id number] [address] [place] [phone] May, Primary insomnia F51.01 [facility] [place] [address] [facility] [id number] [address] [place] [phone] May, [facility] [place] [address] [facility] [id number] [address] [place] [phone] May, [facility] [place] [address] [id number] [address] [place] [phone] Apr, Other specified diseases of anus and rectum K62.89 ; Chronic fatigue R53.82 ; Urinary tract infection, site not specified N39.0 and Enterococcus as the cause of diseases classified elsewhere B95.2 [facility] [place] [address] [id number] [address] [place] [phone] 16 Apr, 2015 [facility] [place] [address] [id number] [address] [place] [phone] 15 Apr, 2015 [facility] [place] [address] [id number] [address] [place] [phone] 14 Apr, 2015 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 [facility] [place] [address] [id number] [address] [place] [phone] 05 Apr, 2015 [facility] [place] [address] [id number] [address] [place] [id number] 26 Mar, 2015 [facility] [place] [address] [id number] [address] [place] [phone] 23 Mar, 2015 [facility] [place] [address] [id number] [address] [place] [phone] 17 Mar, 2015 [facility] [place] [address] [id number] [address] [place] [phone] 14 Mar, 2015 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 [facility] [place] [address] [id number] [address] [place] [id number] 12 Mar, 2015 [facility] [place] [address] [id number] [address] [place] [phone] 11 Mar, 2015 [facility] [place] [address] [id number] [address] [place] [phone] 11 Mar, 2015 [facility] [place] [address] [id number] [address] [place] [phone] 10 Mar, 2015 [facility] [place] [address] [id number] [address] [place] [phone] Feb, [facility] [address] [id number] [address] [place] [phone] Feb, [facility] [address] [id number] [address] [place] [phone] Feb, [facility] [address] [id number] [address] [place] [phone] Jan, [facility] [address] [id number] [address] [place] [phone] Jan, Nausea 787.02 and Neuropathy 355.9 [facility] [address] [id number] [address] [place] [phone] Jan, [facility] [address] [id number] [address] [place] [phone] Jan, [facility] [address] [id number] [address] [place] [phone] Jan, [facility] [address] [id number] [address] [place] [id number] Jan, Dental examination V72.2 [facility] [address] [id number] [address] [place] [phone] Jan, [facility] [address] [id number] [address] [place] [phone] Dec, [facility] [address] [id number] [address] [place] [phone] Dec, [facility] [address] [id number] [address] [place] [phone] Dec, Neuropathy 355.9 [facility] [address] [id number] [address] [place] [phone] November, [facility] [address] [id number] [address] [place] [phone] November, [facility] [address] [id number] [address] [place] [phone] November, [facility] [address] [id number] [address] [place] [address], [place] [phone] 14 Oct, 2014 [facility] [address] [id number] [address] [place] [address], [place] [id number] Oct, [facility] [address] [id number] [address] [place] [address], [place] [address] Sep, [facility] [address] [id number] [address] [place] [address], [place] [address] Sep, [facility] [address] [id number] [address] [place] [address], [place] [phone] Sep, [facility] [address] [id number] [address] [place] [address], [place] [address] Sep, [facility] [address] [id number] [address] [place] [address], [place] [address] Sep, [facility] [address] [id number] [address] [place] [address], [place] [address] Sep, [facility] [address] [id number] [address] [place] [address], [place] [address] Sep, [facility] [address] [id number] [address] [place] [address], [place] [address] Sep, [facility] [address] [id number] [address] [place] [address], [place] [address] Aug, [facility] [address] [id number] [address] [place] [address], [place] [address] Aug, [facility] [address] [id number] [address] [place] [address], [place] [address] Aug, [facility] [address] [id number] [address] [place] [address], [place] [address] Aug, [facility] [address] [id number] [address] [place] [address], [place] [address] Aug, [facility] [address] [id number] [address] [place] [phone] Aug, 2014 [facility] [address] [id number] [address] [place] [address], [place] [address] Aug, [facility] [address] [id number] [address] [place] [address], [place] [address] Aug, [facility] [address] [id number] [address] [place] [address], [place] [address] Jul, [facility] [address] [id number] [address] [place] [address], [place] [address] Jul, [facility] [address] [id number] [address] [place] [address], [place] [address] Jun, [facility] [address] [id number] [address] [place] [address], [place] [address] Jun, [facility] [address] [id number] [address] [place] [address], [place] [address] Jun, [facility] [address] [id number] [address] [place] [address], [place] [address] Jun, [facility] [address] [id number] [address] [place] [address], [place] [address] Jun, [facility] [address] [id number] [address] [place] [address], [place] [address] Jun, [facility] [address] [id number] [address] [place] [address], [place] [address] Jun, [facility] [address] [id number] [address] [place] [address], [place] [address] Jun, [facility] [address] [id number] [address] [place] [address], [place] [address] Jun, [facility] [address] [id number] [address] [place] [address], [place] [address] Jun, [facility] [address] [id number] [address] [place] [address], [place] [address] Jun, [facility] [address] [id number] [address] [place] [address], [place] [address] May, [facility] [address] [id number] [address] [place] [address], [place] [address] May, [facility] [address] [id number] [address] [place] [address], [place] [address] May, [facility] [address] [id number] [address] [place] [address], [place] [address] May, [facility] [address] [id number] [address] [place] [address], [place] [address] May, [facility] [address] [id number] [address] [place] [address], [place] [address] May, [facility] [address] [id number] [address] [place] [address], [place] [address] May, [facility] [address] [id number] [address] [place] [address], [place] [address] May, [facility] [address] [id number] [address] [place] [address], [place] [address] May, [facility] [address] [id number] [address] [place] [address], [place] [address] Apr, [facility] [address] [id number] [address] [place] [address], [place] [address] Apr, [facility] [address] [id number] [address] [place] [address], [place] [address] Apr, [facility] [address] [id number] [address] [place] [address], [place] [address] Apr, [facility] [address] [id number] [address] [place] [address], [place] [address] 15 Apr, 2014 [facility] [address] [id number] [address] [place] [address], [place] [address] 22 Mar, 2014 [facility] [address] [id number] [address] [place] [address], [place] [address] Mar, [facility] [address] [id number] [facility] [place] [address] Feb, [facility] [address] [id number] [address] [place] [address], [place] [address] Feb, [facility] [address] [id number] [address] [place] [address], [place] [address] Feb, [facility] [address] [id number] [address] [place] [address], [place] [address] Feb, [facility] [address] [id number] [address] [place] [address], [place] [address] Feb, [facility] [address] [id number] [address] [place] [address], [place] [address] Feb, [facility] [address] [id number] [address] [place] [address], [place] [address] Jan, [facility] [address] [id number] [address] [place] [address], [place] [address] Jan, [facility] [address] [id number] [address] [place] [address], [place] [address] Jan, [facility] [address] [id number] [address] [place] [address], [place] [address] Jan, [facility] [address] [id number] [address] [place] [address], [place] [address] Jan, [facility] [address] [id number] [address] [place] [address], [place] [address] Jan, [facility] [address] [id number] [address] [place] [address], [place] [address] Jan, [facility] [address] [id number] [address] [place] [address], [place] [address] Jan, [facility] [address] [id number] [address] [place] [address], [place] [address] Jan, [facility] [address] [id number] [facility] [place] [address] Jan, [facility] [address] [id number] [facility] [place] [address] Jan, [facility] [address] [id number] [facility] [place] [address] Dec, [facility] [address] [id number] [address] [place] [address], [place] [address] Dec, [facility] [address] [id number] [address] [place] [address], [place] [address] Dec, [facility] [address] [id number] [address] [place] [address], [place] [address] Dec, [facility] [address] [id number] [address] [place] [address], [place] [address] Dec, [facility] [address] [id number] [address] [place] [address], [place] [address] Dec, [facility] [address] [id number] [address] [place] [address], [place] [address] November, [facility] [address] [id number] [address] [place] [address], [place] [address] November, [facility] [address] [id number] [address] [place] [address], [place] [address] November, [facility] [address] [id number] [address] [place] [address], [place] [address] November, [facility] [address] [id number] [address] [place] [address], [place] [address] November, [facility] [address] [id number] [address] [place] [address], [place] [address] November, [facility] [address] [id number] [address] [place] [address], [place] [address] Oct, [facility] [address] [id number] [address] [place] [address], [place] [address] Oct, [facility] [address] [id number] [address] [place] [address], [place] [address] Oct, [facility] [address] [id number] [address] [place] [address], [place] [address] Oct, [facility] [address] [id number] [address] [place] [address], [place] [address] Sep, [facility] [address] [id number] [address] [place] [address], [place] [address] Sep, [facility] [address] [id number] [address] [place] [address], [place] [address] Sep, [facility] [address] [id number] [address] [place] [address], [place] [address] Sep, [facility] [address] [id number] [address] [place] [address], [place] [address] Sep, [facility] [address] [id number] [address] [place] [address], [place] [address] Aug, [facility] [address] [id number] [address] [place] [address], [place] [address] Aug, [facility] [address] [id number] [address] [place] [address], [place] [address] Aug, [facility] [address] [id number] [address] [place] [address], [place] [address] Aug, [facility] [address] [id number] [address] [place] [address], [place] [address] Aug, [facility] [address] [place] [id number] May, [facility] [address] [id number] [address] [place] [address], [place] [address] May, [facility] [address] [id number] [address] [place] [address] May, [facility] [address] [id number] [address] [place] [id number] May, [facility] [address] [id number] [address] [place] [address], [place] [address] May, [facility] [address] [id number] [address] [place] [address], [place] [address] Apr, [facility] [address] [id number] [address] [place] [address], [place] [address] Apr, [facility] [address] [id number] [address] [place] [address], [place] [address] Apr, [facility] [address] [id number] [address] [place] [address], [place] [address] Apr, [facility] [address] [id number] [address] [place] [address], [place] [address] Apr, [facility] [address] [id number] [address] [place] [address], [place] [address] Apr, [facility] [address] [id number] [address] [place] [address], [place] [address] Apr, [facility] [address] [id number] [address] [place] [address], [place] [address] 28 Mar, 2013 [facility] [address] [id number] [address] [place] [address], [place] [address] Mar, [facility] [address] [id number] [address] [place] [address], [place] [address] 24 Mar, 2013 [facility] [address] [id number] [address] [place] [address], [place] [address] 16 Mar, 2013 [facility] [address] [id number] [address] [place] [address], [place] [address] 12 Mar, 2013 [facility] [address] [id number] [address] [place] [address], [place] [address] 06 Mar, 2013 [facility] [address] [id number] [address] [place] [address], [place] [address] Feb, [facility] [address] [id number] [facility] [place] [address] Feb, [facility] [address] [id number] [address] [place] [address], [place] [address] Feb, [facility] [address] [id number] [facility] [place] [address] Feb, [facility] [address] [id number] [address] [place] [address], [place] [address] Feb, [facility] [address] [id number] [address] [place] [address], [place] [address] Feb, [facility] [address] [id number] [address] [place] [address], [place] [address] Jan, [facility] [address] [id number] [address] [place] [address], [place] [address] Dec, [facility] [address] [id number] [address] [place] [address], [place] [address] Dec, [facility] [address] [id number] [address] [place] [address], [place] [address] Dec, [facility] [address] [id number] [address] [place] [address], [place] [address] Dec, [facility] [address] [id number] [address] [place] [address], [place] [phone] Dec, [facility] [address] [id number] [address] [place] [address], [place] [address] Dec, [facility] [address] [id number] [address] [place] [address], [place] [phone] Dec, [facility] [address] [id number] [address] [place] [address], [place] [address] Dec, [facility] [address] [id number] [address] [place] [address], [place] [address] Dec, [facility] [address] [id number] [address] [place] [address], [place] [address] November, [facility] [place] [address] [id number] [address] [place] [phone] November, [facility] [place] [address] [id number] [address] [place] [phone] Oct, [facility] [place] [address] [id number] [address] [place] [id number] Sep, [facility] [place] [address] [id number] [address] [place] [phone] Sep, [facility] [place] [address] [id number] [address] [place] [phone] Sep, [facility] [place] [address] [id number] [address] [place] [phone] Sep, [facility] [place] [address] [id number] [address] [place] [phone] Aug, [facility] [place] [address] [id number] [address] [place] [phone] Aug, [facility] [place] [address] [id number] [address] [place] [phone] Jul, [facility] [place] [address] [id number] [address] [place] [phone] Jul, [facility] [place] [address] [id number] [address] [place] [id number] Jul, [facility] [place] [address] [id number] [address] [place] [phone] Sep, [facility] [place] [address] [id number] [address] [place] [phone] Sep, [facility] [place] [address] [id number] [address] [place] [phone] 10 Sep, 2011 IMMUNIZATIONS No Known Immunizations SOCIAL HISTORY Never Assessed REASON FOR VISIT EMR-[facility] [place]AN OF CARE [...] bowel obstruction, Dehydration -[facility] 01/01/17 Hospitalization History [facility]- UTI/Sepsis 01/18/2018 Hospitalization History [facility] - infection 4 days 05/2018
--- OUTSIDE RECORDS SUMMARY | 2020-01-14 23:11 | XMS REPORT ---
Author Author Melvin Hwang Doctor Organization [facility] [facility] Address Unknown Phone Unavailable Care Team Providers Care Home Security Professional Name Role Phone Migration, Doctor Unavailable Unavailable PROBLEMS Type Condition ICD9-CM Code URF24-KN Code Onset Dates Condition S tatus SNOMED Code Problem Primary insomnia F51.01 Active 193 393136 Problem Chronic fatigue, unspecified R53.82 A ctive 656127344 Problem Incontinence of feces, unspecified fecal incontinence type R15.9 Active 68679359 Problem Abdominal pain, left lower quadrant R10.32 Active 752573373 Problem Hypertension, benign I10 Active 48856840 Problem Mood disorder F39 Active 495480 05 Problem Attention to urostomy Z43.6 Active 418911728 Problem 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 841503984 Problem Chronic pain syndrome G89.4 Active 678229582 Problem Hydronephrosis with ureteral stricture, not else where classified N13.1 Active 59267959 Problem Neuropathy G62.9 Active 363938828 Problem Anxiety F41.9 Active 85502592 Problem Polyneuropathy G62.9 Active 95729 000 Problem Malignant neoplasm of colon, unspecified part of colon C18.9 Active [id number] ALLERGIES No Information ENCOUNTERS Encounter Location Date Diagnosis [place] [id number] [facility] [id number] [address] [place] [id number] Sep, [facility] [address] [facility] [id number] [address] [place] [id number] Sep, Neuropathy G62.9 [facility] [address] [facility] [id number] [address] [place] [phone] Sep, [facility] [address] [facility] [id number] [address] [place] [id number] Sep, H/O malignant carcinoid tumo r of rectum Z85.040 and Primary insomnia F51.01 [place] [address] [id number] [address] [place] [phone] Aug, [facility] [address] [id number] [address] [place] [id number] Aug, Neuropathy G62.9 [facility] [address] [id number] [address] [place] [phone] Aug, [facility] [address] [id number] [address] [place] [id number] Jul, Non-recurrent acute suppurat francine otitis media of left ear without spontaneous rupture of tympanic membrane H66.002 [facility] [address] [id number] [address] [place] [phone] Jul, Neuropathy G62.9 [facility] [address] [id number] [address] [place] [phone] Jun, [facility] [address] [id number] [address] [place] [phone] Jun, [facility] [address] [id number] [address] [place] [phone] Jun, Neuropathy G62.9 [facility] [address] [id number] [address] [place] [id number] Jun, [facility] [address] [id number] [address] [place] [phone] Jun, [facility] [address] [id number] [address] [place] [id number] Jun, Lumbar neuritis M54.16 [facility] [address] [id number] [address] [place] [id number] May, Neuropathy G62.9 [facility] [address] [facility] [id number] [address] [place] [phone] May, [facility] [address] [id number] [address] [place] [phone] May, Neuropathy G62.9 and Hyperte nsion, benign I10 [facility] [address] [facility] [id number] [address] [place] [id number] 09 Apr, 2018 Polyneuropathy G62.9 and Hyp ertension, benign I10 [facility] [address] [place] [id number] [address] [place] [id number] 17 Mar, 2018 Chronic pain syndrome G89.4 and Hypertension, benign I10 [facility] [address] [place] [id number] [place] [phone] 11 Mar, 2018 Polyneuropathy G62.9 and Hyp ertension, benign I10 [facility] [address] [place] [id number] [address] [place] [phone] Feb, [facility] [address] [place] [id number] [place] [phone] Feb, Hypertension, benign I10 [facility] [address] [place] [id number] [place] [phone] Feb, Hypertension, benign I10 ; P olyneuropathy G62.9 and Primary insomnia F51.01 [facility] [address] [place] [id number] [address] [place] [phone] Jan, Hypertension, benign I10 and Polyneuropathy G62.9 [facility] [address] [place] [id number] [address] [place] [id number] Jan, Hypertension, benign I10 and Neuropathy G62.9 [facility] [address] [place] [id number] [address] [place] [phone] Jan, [facility] [address] [place] [id number] [address] [place] [phone] Dec, Polyneuropathy G62.9 [facility] [address] [place] [id number] [address] [place] [phone] Dec, Mood disorder F39 [facility] [address] [place] [id number] [address] [place] [phone] November, Polyneuropathy G62.9 [facility] [address] [facility] [id number] [address] [place] [phone] November, Medicare annual wellness vis it, initial Z00.00 [facility] [address] [facility] [id number] [address] [place] [phone] November, Mood disorder F39 [facility] [address] [facility] [id number] [address] [place] [phone] Oct, Polyneuropathy G62.9 [facility] [address] [facility] [id number] [address] [place] [phone] Oct, [facility] [address] [facility] [id number] [address] [place] [phone] Oct, [facility] [address] [facility] [id number] [address] [place] [phone] Oct, Mood disorder F39 ; Attentio n to urostomy Z43.6 ; Chronic pain syndrome G89.4 and Polyneuropathy G62.9 [facility] [address] [facility] [id number] [address] [place] [phone] Sep, Polyneuropathy G62.9 [facility] [address] [facility] [id number] [address] [place] [phone] Sep, [facility] [address] [facility] [id number] [address] [place] [phone] Sep, Polyneuropathy G62.9 [facility] [address] [facility] [id number] [address] [place] [phone] Aug, Polyneuropathy G62.9 [facility] [address] [facility] [id number] [address] [place] [phone] Aug, Malignant neoplasm of colon, unspecified part of colon C18.9 and Polyneuropathy G62.9 [facility] [address] [facility] [id number] [address] [place] [phone] Aug, Neuropathy G62.9 and Polyneu ropathy G62.9 [facility] [address] [id number] [address] [place] [id number] Jul, Encounter for drug screening Z02.83 [facility] [address] [facility] [id number] [address] [place] [phone] Jul, Polyneuropathy G62.9 [facility] [address] [facility] [id number] [address] [place] [phone] Jul, [facility] [address] [facility] [id number] [address] [place] [phone] Jul, Neuropathy G62.9 and Anxiety F41.9 [facility] [address] [facility] [id number] [address] [place] [phone] Jul, [facility] [address] [facility] [id number] [address] [place] [phone] Jul, [facility] [address] [facility] [id number] [address] [place] [phone] Jul, [facility] [address] [facility] [id number] [address] [place] [id number] Jul, Polyneuropathy G62.9 [facility] [address] [facility] [id number] [address] [place] [phone] Jul, [facility] [address] [facility] [id number] [address] [place] [id number] Jun, [facility] [address] [facility] [id number] [address] [place] [phone] Jun, [facility] [address] [facility] [id number] [address] [place] [phone] Jun, [facility] [address] [id number] [place] [address] 07 Jun, 2017 Encounter for dental examina tion Z01.20 [facility] [address] [facility] [id number] [address] [place] [id number] Jun, Polyneuropathy G62.9 and Anx iety F41.9 [facility] [address] [facility] [id number] [address] [place] [phone] Jun, [facility] [address] [place] [id number] [place] [address] May, Dental examination Z01.20 [facility] [address] [place] [id number] [address] [place] [id number] May, Polyneuropathy G62.9 [facility] [address] [place] [id number] [address] [place] [id number] Apr, Polyneuropathy G62.9 [facility] [address] [place] [id number] [address] [place] [phone] Apr, Polyneuropathy G62.9 [facility] [address] [place] [id number] [address] [place] [phone] Apr, Hypertension, benign I10 ; P olyneuropathy G62.9 and Anxiety F41.9 [facility] [address] [place] [id number] [address] [place] [id number] Apr, Primary insomnia F51.01 and Polyneuropathy G62.9 [facility] [address] [place] [id number] [address] [place] [id number] Apr, Primary insomnia F51.01 and Polyneuropathy G62.9 [facility] [id number] [place] [id number] Mar, Primary insomnia F51.01 [facility] [address] [facility] [id number] [address] [place] [phone] Mar, [facility] [address] [place] [id number] [address] [place] [id number] Mar, Polyneuropathy G62.9 [facility] [address] [facility] [id number] [address] [place] [id number] Feb, Primary insomnia F51.01 [facility] [id number] [place] [id number] Feb, [facility] [address] [id number] [address] [place] [id number] Feb, [facility] [address] [id number] [address] [place] [phone] Feb, Polyneuropathy G62.9 [facility] [address] [id number] [address] [place] [address], [place] [address] Feb, Primary insomnia F51.01 [facility] [address] [id number] [address] [place] [address], [place] [phone] Jan, [facility] [address] [id number] [address] [place] [phone] Jan, [facility] [address] [facility] [id number] [address] [place] [address], [place] [address] Dec, [facility] [address] [id number] [address] [place] [id number] Dec, Primary insomnia F51.01 [facility] [address] [id number] [address] [place] [address], [place] [address] Dec, Primary insomnia F51.01 [facility] [address] [id number] [address] [place] [id number] Dec, [facility] [address] [facility] [id number] [address] [place] [id number] Dec, [facility] [address] [facility] [id number] [address] [place] [phone] Dec, [facility] [address] [id number] [address] [place] [id number] Dec, [facility] [address] [facility] [id number] [address] [place] [id number] November, Primary insomnia F51.01 and Polyneuropathy G62.9 [facility] [address] [id number] [address] [place] [phone] November, [facility] [address] [id number] [address] [place] [id number] November, Abdominal pain, left lower q uadrant R10.32 [facility] [address] [id number] [address] [place] [phone] November, [facility] [address] [id number] [address] [place] [id number] Oct, [facility] [address] [id number] [address] [place] [id number] Oct, Abdominal pain, left lower q uadrant R10.32 ; H/O malignant carcinoid tumor of rectum Z85.040 and Neuropathy G62.9 [facility] [address] [id number] [address] [place] [phone] Oct, [facility] [address] [facility] [id number] [address] [place] [phone] Sep, [facility] [id number] [id number] Sep, [facility] [address] [id number] [address] [place] [id number] Sep, [facility] [address] [id number] [address] [place] [phone] Aug, [facility] [address] [facility] [id number] [address] [place] [id number] Aug, [facility] [address] [id number] [address] [place] [id number] Aug, Abdominal pain, left lower q uadrant R10.32 ; Neuropathy G62.9 and Anxiety F41.9 [facility] [address] [place] [address] Jul, [facility] [address] [facility] [id number] [address] [place] [phone] Jul, [facility] [address] [id number] [address] [place] [phone] Jul, [facility] [address] [id number] [address] [place] [phone] Jul, [facility] [address] [id number] [address] [place] [phone] Jul, [facility] [address] [id number] [address] [place] [phone] Jun, [facility] [address] [id number] [address] [place] [phone] May, [facility] [address] [id number] [address] [place] [phone] May, [facility] [address] [id number] [address] [place] [id number] Apr, [facility] [address] [id number] [address] [place] [phone] Apr, Muscle spasms of both lower extremities M62.838 and Cellulitis, unspecified cellulitis site L03.90 [facility] [address] [id number] [address] [place] [id number] Apr, [facility] [address] [id number] [address] [place] [id number] 23 Mar, 2016 Generalized abdominal pain R 10.84 [facility] [address] [id number] [address] [place] [id number] 20 Mar, 2016 [facility] [address] [id number] [address] [place] [id number] 14 Mar, 2016 [facility] [address] [id number] [address] [place] [phone] 14 Mar, 2016 [facility] [address] [id number] [address] [place] [phone] 13 Mar, 2016 [facility] [address] [id number] [address] [place] [phone] Mar, [facility] [address] [id number] [address] [place] [id number] Mar, [facility] [address] [id number] [address] [place] [id number] Mar, [facility] [address] [id number] [address] [place] [id number] Feb, Other specified diseases of anus and rectum K62.89 [facility] [address] [id number] [address] [place] [id number] Feb, [facility] [address] [id number] [address] [place] [phone] Feb, Dizziness R42 [facility] [address] [id number] [address] [place] [id number] Feb, [facility] [address] [id number] [address] [place] [id number] Jan, Polyneuropathy G62.9 [facility] [address] [id number] [address] [place] [id number] Jan, Other specified diseases of anus and rectum K62.89 [facility] [address] [id number] [address] [place] [id number] Jan, [facility] [address] [id number] [address] [place] [phone] Jan, [facility] [address] [id number] [address] [place] [phone] Jan, [facility] [address] [id number] [address] [place] [id number] Jan, Dizziness R42 [facility] [address] [id number] [address] [place] [id number] Dec, [facility] [address] [id number] [address] [place] [phone] Dec, [facility] [address] [id number] [address] [place] [phone] Dec, [facility] [address] [id number] [address] [place] [id number] Dec, Dizziness R42 [facility] [address] [facility] [id number] [address] [place] [id number] November, [facility] [address] [facility] [id number] [address] [place] [phone] Oct, [facility] [address] [id number] [address] [place] [id number] Oct, [facility] [address] [facility] [id number] [address] [place] [phone] Oct, [facility] [address] [facility] [id number] [address] [place] [id number] Oct, [facility] [address] [facility] [id number] [address] [place] [phone] Sep, [facility] [address] [facility] [id number] [address] [place] [id number] Sep, Primary insomnia F51.01 [facility] [address] [place] [id number] [address] [place] [id number] Sep, Primary insomnia F51.01 [facility] [address] [facility] [id number] [address] [place] [phone] Sep, [facility] [address] [facility] [id number] [address] [place] [phone] Aug, [facility] [address] [facility] [id number] [address] [place] [phone] Aug, [facility] [address] [facility] [id number] [address] [place] [phone] Aug, Primary insomnia F51.01 ; Mo od disorder F39 ; Nausea and vomiting, unspecified intactability, vomiting of unspecified type R11.2 and Diarrhea R19.7 [facility] [address] [id number] [address] [place] [phone] 15 Aug, 2015 [facility] [address] [facility] [id number] [address] [place] [phone] 05 Aug, 2015 Folliculitis L73.9 [facility] [address] [facility] [id number] [address] [place] [phone] Aug, [facility] [address] [facility] [id number] [address] [place] [phone] Aug, [facility] [address] [facility] [id number] [address] [place] [phone] Jul, Folliculitis L73.9 [facility] [address] [facility] [id number] [address] [place] [phone] Jul, [facility] [address] [facility] [id number] [address] [place] [phone] Jun, Folliculitis L73.9 [facility] [address] [facility] [id number] [address] [place] [phone] Jun, [facility] [address] [facility] [id number] [address] [place] [phone] May, Polyneuropathy G62.9 [facility] [address] [facility] [id number] [address] [place] [phone] May, Other specified diseases of anus and rectum K62.89 [facility] [address] [facility] [id number] [address] [place] [phone] May, [facility] [address] [facility] [id number] [address] [place] [phone] May, Primary insomnia F51.01 [facility] [address] [facility] [id number] [address] [place] [phone] May, [facility] [address] [facility] [id number] [address] [place] [phone] May, [facility] [address] [id number] [address] [place] [phone] Apr, Other specified diseases of anus and rectum K62.89 ; Chronic fatigue R53.82 ; Urinary tract infection, site not specified N39.0 and Enterococcus as the cause of diseases classified elsewhere B95.2 [facility] [address] [id number] [address] [place] [phone] 16 Apr, 2015 [facility] [address] [address] [id number] [address] [place] [id number] 15 Apr, 2015 [facility] [address] [id number] [address] [place] [id number] 14 Apr, 2015 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 [facility] [address] [id number] [address] [place] [id number] 05 Apr, 2015 [facility] [address] [id number] [address] [place] [id number] 26 Mar, 2015 [facility] [address] [id number] [address] [place] [id number] 23 Mar, 2015 [facility] [address] [id number] [address] [place] [id number] 17 Mar, 2015 [facility] [address] [id number] [address] [place] [id number] 14 Mar, 2015 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 [facility] [address] [id number] [address] [place] [id number] 12 Mar, 2015 [facility] [address] [id number] [address] [place] [id number] 11 Mar, 2015 [facility] [address] [id number] [address] [place] [id number] 11 Mar, 2015 [facility] [address] [id number] [address] [place] [id number] 10 Mar, 2015 [facility] [address] [id number] [address] [place] [phone] Feb, [facility] [address] [id number] [address] [place] [id number] Feb, [facility] [address] [id number] [address] [place] [id number] Feb, [facility] [address] [id number] [address] [place] [phone] Jan, [facility] [address] [id number] [address] [place] [id number] Jan, Nausea 787.02 and Neuropathy 355.9 [facility] [address] [id number] [address] [place] [id number] Jan, [facility] [address] [id number] [address] [place] [id number] Jan, [facility] [address] [id number] [address] [place] [id number] Jan, [facility] [address] [id number] [address] [place] [id number] Jan, Dental examination V72.2 [facility] [address] [id number] [address] [place] [phone] Jan, [facility] [address] [id number] [address] [place] [id number] Dec, [facility] [address] [id number] [address] [place] [id number] Dec, [facility] [address] [id number] [address] [place] [id number] Dec, Neuropathy 355.9 [facility] [address] [id number] [address] [place] [id number] November, [facility] [address] [id number] [address] [place] [id number] November, [facility] [address] [id number] [address] [place] [phone] November, [facility] [address] [id number] [address] [place] [address], [place] [address] 14 Oct, 2014 [facility] [address] [id number] [address] [place] [address], [place] [address] Oct, [facility] [address] [id number] [address] [place] [address], [place] [address] Sep, [facility] [address] [id number] [address] [place] [address], [place] [address] Sep, [facility] [address] [id number] [address] [place] [address], [place] [address] Sep, [facility] [address] [id number] [address] [place] [address], [place] [address] Sep, [facility] [address] [id number] [address] [place] [address], [place] [address] Sep, [facility] [address] [id number] [address] [place] [address], [place] [address] Sep, [facility] [address] [id number] [address] [place] [address], [place] [address] Sep, [facility] [address] [id number] [address] [place] [address], [place] [address] Sep, [facility] [address] [id number] [address] [place] [address], [place] [address] Aug, [facility] [address] [id number] [address] [place] [address], [place] [address] Aug, [facility] [address] [id number] [address] [place] [address], [place] [address] Aug, [facility] [address] [id number] [address] [place] [address], [place] [address] Aug, [facility] [address] [id number] [address] [place] [address], [place] [address] Aug, [facility] [address] [id number] [address] [place] [phone] Aug, 2014 [facility] [address] [id number] [address] [place] [address], [place] [address] Aug, [facility] [address] [id number] [address] [place] [address], [place] [address] Aug, [facility] [address] [id number] [address] [place] [address], [place] [address] Jul, [facility] [address] [id number] [address] [place] [address], [place] [address] Jul, [facility] [address] [id number] [address] [place] [address], [place] [address] Jun, [facility] [address] [id number] [address] [place] [address], [place] [address] Jun, [facility] [address] [id number] [address] [place] [address], [place] [address] Jun, [facility] [address] [id number] [address] [place] [address], [place] [address] Jun, [facility] [address] [id number] [address] [place] [address], [place] [address] Jun, [facility] [address] [id number] [address] [place] [address], [place] [address] Jun, [facility] [address] [id number] [address] [place] [address], [place] [address] Jun, [facility] [address] [id number] [address] [place] [address], [place] [address] Jun, [facility] [address] [id number] [address] [place] [address], [place] [address] Jun, [facility] [address] [id number] [address] [place] [address], [place] [address] Jun, [facility] [address] [id number] [address] [place] [address], [place] [address] Jun, [facility] [address] [id number] [address] [place] [address], [place] [address] May, [facility] [address] [id number] [address] [place] [address], [place] [address] May, [facility] [address] [id number] [address] [place] [address], [place] [address] May, [facility] [address] [id number] [address] [place] [address], [place] [address] May, [facility] [address] [id number] [address] [place] [address], [place] [address] May, [facility] [address] [id number] [address] [place] [address], [place] [address] May, [facility] [address] [id number] [address] [place] [address], [place] [address] May, [facility] [address] [id number] [address] [place] [address], [place] [address] May, [facility] [address] [id number] [address] [place] [address], [place] [address] May, [facility] [address] [id number] [address] [place] [address], [place] [address] Apr, [facility] [address] [id number] [address] [place] [address], [place] [address] Apr, [facility] [address] [id number] [address] [place] [address], [place] [address] Apr, [facility] [address] [id number] [address] [place] [address], [place] [address] Apr, [facility] [address] [id number] [address] [place] [address], [place] [address] 15 Apr, 2014 [facility] [address] [id number] [address] [place] [address], [place] [address] 22 Mar, 2014 [facility] [address] [id number] [address] [place] [address], [place] [address] Mar, [facility] [address] [id number] [facility] [place] [address] Feb, [facility] [address] [id number] [address] [place] [address], [place] [address] Feb, [facility] [address] [id number] [address] [place] [address], [place] [address] Feb, [facility] [address] [id number] [address] [place] [address], [place] [address] Feb, [facility] [address] [id number] [address] [place] [address], [place] [address] Feb, [facility] [address] [id number] [address] [place] [address], [place] [address] Feb, [facility] [address] [id number] [address] [place] [address], [place] [address] Jan, [facility] [address] [id number] [address] [place] [address], [place] [address] Jan, [facility] [address] [id number] [address] [place] [address], [place] [address] Jan, [facility] [address] [id number] [address] [place] [address], [place] [address] Jan, [facility] [address] [id number] [address] [place] [address], [place] [address] Jan, [facility] [address] [id number] [address] [place] [address], [place] [address] Jan, [facility] [address] [id number] [address] [place] [address], [place] [address] Jan, [facility] [address] [id number] [address] [place] [address], [place] [address] Jan, [facility] [address] [id number] [address] [place] [address], [place] [address] Jan, [facility] [address] [id number] [facility] [place] [address] Jan, [facility] [address] [id number] [facility] [place] [address] Jan, [facility] [address] [id number] [facility] [place] [address] Dec, [facility] [address] [id number] [address] [place] [address], [place] [address] Dec, [facility] [address] [id number] [address] [place] [address], [place] [address] Dec, [facility] [address] [id number] [address] [place] [address], [place] [address] Dec, [facility] [address] [id number] [address] [place] [address], [place] [address] Dec, [facility] [address] [id number] [address] [place] [address], [place] [address] Dec, [facility] [address] [id number] [address] [place] [address], [place] [address] November, [facility] [address] [id number] [address] [place] [address], [place] [address] November, [facility] [address] [id number] [address] [place] [address], [place] [address] November, [facility] [address] [id number] [address] [place] [address], [place] [address] November, [facility] [address] [id number] [address] [place] [address], [place] [address] November, [facility] [address] [id number] [address] [place] [address], [place] [address] November, [facility] [address] [id number] [address] [place] [address], [place] [address] Oct, [facility] [address] [id number] [address] [place] [address], [place] [address] Oct, [facility] [address] [id number] [address] [place] [address], [place] [address] Oct, [facility] [address] [id number] [address] [place] [address], [place] [address] Oct, [facility] [address] [id number] [address] [place] [address], [place] [address] Sep, [facility] [address] [id number] [address] [place] [address], [place] [address] Sep, [facility] [address] [id number] [address] [place] [address], [place] [address] Sep, [facility] [address] [id number] [address] [place] [address], [place] [address] Sep, [facility] [address] [id number] [address] [place] [address], [place] [address] Sep, [facility] [address] [id number] [address] [place] [address], [place] [address] Aug, [facility] [address] [id number] [address] [place] [address], [place] [address] Aug, [facility] [address] [id number] [address] [place] [address], [place] [address] Aug, [facility] [address] [id number] [address] [place] [address], [place] [address] Aug, [facility] [address] [id number] [address] [place] [address], [place] [address] Aug, [facility] [place] [id number] May, [facility] [address] [id number] [address] [place] [address], [place] [address] May, [facility] [address] [id number] [address] [place] [address] May, [facility] [address] [id number] [address] [place] [address] May, [facility] [address] [id number] [address] [place] [address], [place] [address] May, [facility] [address] [id number] [address] [place] [address], [place] [address] Apr, [facility] [address] [id number] [address] [place] [address], [place] [address] Apr, [facility] [address] [id number] [address] [place] [address], [place] [address] Apr, [facility] [address] [id number] [address] [place] [address], [place] [address] Apr, [facility] [address] [id number] [address] [place] [address], [place] [address] Apr, [facility] [address] [id number] [address] [place] [address], [place] [address] Apr, [facility] [address] [id number] [address] [place] [address], [place] [address] Apr, [facility] [address] [id number] [address] [place] [address], [place] [address] 28 Mar, 2013 [facility] [address] [id number] [address] [place] [address], [place] [address] Mar, [facility] [address] [id number] [address] [place] [address], [place] [address] 24 Mar, 2013 [facility] [address] [id number] [address] [place] [address], [place] [address] 16 Mar, 2013 [facility] [address] [id number] [address] [place] [address], [place] [address] 12 Mar, 2013 [facility] [address] [id number] [address] [place] [address], [place] [address] 06 Mar, 2013 [facility] [address] [id number] [address] [place] [address], [place] [address] Feb, [facility] [address] [id number] [facility] [place] [address] Feb, [facility] [address] [id number] [address] [place] [address], [place] [address] Feb, [facility] [address] [id number] [facility] [place] [address] Feb, [facility] [address] [id number] [address] [place] [address], [place] [address] Feb, [facility] [address] [id number] [address] [place] [address], [place] [address] Feb, [facility] [address] [id number] [address] [place] [address], [place] [address] Jan, [facility] [address] [id number] [address] [place] [address], [place] [address] Dec, [facility] [address] [id number] [address] [place] [address], [place] [address] Dec, [facility] [address] [id number] [address] [place] [address], [place] [address] Dec, [facility] [address] [id number] [address] [place] [address], [place] [address] Dec, [facility] [address] [id number] [address] [place] [address], [place] [address] Dec, [facility] [address] [id number] [address] [place] [address], [place] [address] Dec, [facility] [address] [id number] [address] [place] [address], [place] [address] Dec, [facility] [address] [id number] [address] [place] [address], [place] [address] Dec, [facility] [address] [id number] [address] [place] [address], [place] [address] Dec, [facility] [address] [id number] [address] [place] [address], [place] [address] November, [facility] [address] [id number] [address] [place] [id number] November, [facility] [address] [id number] [address] [place] [address] Oct, [facility] [address] [id number] [address] [place] [address] Sep, [facility] [address] [id number] [address] [place] [phone] Sep, [facility] [address] [id number] [address] [place] [phone] Sep, [facility] [address] [id number] [address] [place] [phone] Sep, [facility] [address] [id number] [address] [place] [phone] Aug, [facility] [address] [id number] [address] [place] [phone] Aug, [facility] [address] [id number] [address] [place] [phone] Jul, [facility] [address] [id number] [address] [place] [phone] Jul, [facility] [address] [id number] [address] [place] [phone] Jul, [facility] [address] [id number] [address] [place] [phone] Sep, [facility] [address] [id number] [address] [place] [phone] Sep, [facility] [address] [id number] [address] [place] [phone] 10 Sep, 2011 IMMUNIZATIONS No Known Immunizations SOCIAL HISTORY Never Assessed REASON FOR VISIT EMR-[facility] PLAN OF CARE VITAL SIGNS MEDICATIONS Unknown [...] bowel obstruction, Dehydration -[facility] 01/01/17 Hospitalization History [facility]- UTI/Sepsis 01/18/2018 Hospitalization History [facility] - infection 4 days 05/2018
--- OUTSIDE RECORDS SUMMARY | 2020-01-14 23:12 | XMS REPORT ---
Author Author Melvin BENTLEY Organization [facility] [place] Address [address] [place] [address] Care Team Providers Care Salvage Cutter Name Role Phone LINDA BENTLEY Unavailable PROBLEMS Type Condition ICD9-CM Code ANH82-YG Code Onset Dates Condition S tatus SNOMED Code Problem Primary insomnia F51.01 Active 193 384372 Problem Chronic fatigue, unspecified R53.82 A ctive 810800812 Problem Incontinence of feces, unspecified fecal incontinence type R15.9 Active 55172739 Problem Abdominal pain, left lower quadrant R10.32 Active 722730021 Problem Hypertension, benign I10 Active 51542116 Problem Mood disorder F39 Active 537731 05 Problem Attention to urostomy Z43.6 Active 761892943 Problem 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 690255482 Problem Chronic pain syndrome G89.4 Active 796587112 Problem Hydronephrosis with ureteral stricture, not else where classified N13.1 Active 36816661 Problem Neuropathy G62.9 Active 377686053 Problem Anxiety F41.9 Active 49457440 Problem Polyneuropathy G62.9 Active 22009 000 Problem Malignant neoplasm of colon, unspecified part of colon C18.9 Active [id number] ALLERGIES No Information ENCOUNTERS Encounter Location Date Diagnosis [facility] [place] [address] [facility] [id number] [address] [place] [phone] Oct, [facility] [place] [address] [facility] [id number] [address] [place] [phone] Sep, [facility] [place] [address] [facility] [id number] [address] [place] [id number] Sep, Neuropathy G62.9 [facility] [place] [address] [facility] [id number] [address] [place] [address] Sep, [facility] [place] [address] [facility] [id number] [address] [place] [address] Sep, H/O malignant carcinoid tumo r of rectum Z85.040 and Primary insomnia F51.01 [facility] [place] [address] [id number] [address] [place] [phone] Aug, [facility] [place] [address] [facility] [id number] [address] [place] [phone] Aug, Neuropathy G62.9 [facility] [place] [address] [id number] [address] [place] [phone] Aug, [facility] [place] [address] [id number] [address] [place] [id number] Jul, Non-recurrent acute suppurat francine otitis media of left ear without spontaneous rupture of tympanic membrane H66.002 [facility] [place] [address] [facility] [id number] [address] [place] [address] Jul, Neuropathy G62.9 [facility] [place] [address] [facility] [id number] [address] [place] [phone] Jun, [facility] [place] [address] [facility] [id number] [address] [place] [phone] Jun, [facility] [place] [address] [facility] [id number] [address] [place] [phone] Jun, Neuropathy G62.9 [facility] [place] [address] [facility] [id number] [address] [place] [phone] Jun, [facility] [place] [address] [facility] [id number] [address] [place] [phone] Jun, [facility] [place] [address] [facility] [id number] [address] [place] [phone] Jun, Lumbar neuritis M54.16 [facility] [place] [address] [facility] [id number] [address] [place] [phone] May, Neuropathy G62.9 [facility] [place] [address] [facility] [id number] [address] [place] [phone] May, [facility] [place] [address] [place] [id number] [address] [place] [phone] 05 May, 2018 Neuropathy G62.9 and Hyperte nsion, benign I10 [facility] [place] [address] [place] [id number] [address] [place] [phone] 09 Apr, 2018 Polyneuropathy G62.9 and Hyp ertension, benign I10 [place] [address] [place] [id number] [place] [phone] 17 Mar, 2018 Chronic pain syndrome G89.4 and Hypertension, benign I10 [place] [address] [phone] 11 Mar, 2018 Polyneuropathy G62.9 and Hyp ertension, benign I10 [place] [address] [address] Feb, [place] [address] [address] Feb, Hypertension, benign I10 [place] [address] [address] Feb, Hypertension, benign I10 ; P olyneuropathy G62.9 and Primary insomnia F51.01 [place] [address] [address] Jan, Hypertension, benign I10 and Polyneuropathy G62.9 [place] [address] [place] [id number] [place] [phone] Jan, Hypertension, benign I10 and Neuropathy G62.9 [place] [address] [phone] Jan, [facility] [place] [address] [place] [id number] [address] [place] [phone] Dec, Polyneuropathy G62.9 [facility] [place] [address] [place] [id number] [address] [place] [phone] Dec, Mood disorder F39 [facility] [place] [address] [id number] [address] [place] [id number] November, Polyneuropathy G62.9 [facility] [place] [address] [id number] [address] [place] [id number] November, Medicare annual wellness vis it, initial Z00.00 [facility] [place] [address] [facility] [id number] [address] [place] [phone] November, Mood disorder F39 [facility] [place] [address] [id number] [address] [place] [phone] Oct, Polyneuropathy G62.9 [facility] [place] [address] [id number] [address] [place] [phone] Oct, [facility] [place] [address] [id number] [address] [place] [phone] Oct, [facility] [place] [address] [facility] [id number] [address] [place] [phone] Oct, Mood disorder F39 ; Attentio n to urostomy Z43.6 ; Chronic pain syndrome G89.4 and Polyneuropathy G62.9 [facility] [place] [address] [id number] [address] [place] [phone] Sep, Polyneuropathy G62.9 [facility] [place] [address] [id number] [address] [place] [id number] Sep, [facility] [place] [address] [id number] [address] [place] [phone] Sep, Polyneuropathy G62.9 [facility] [place] [address] [id number] [address] [place] [address] Aug, Polyneuropathy G62.9 [facility] [place] [address] [facility] [id number] [address] [place] [phone] Aug, Malignant neoplasm of colon, unspecified part of colon C18.9 and Polyneuropathy G62.9 [facility] [place] [address] [id number] [address] [place] [phone] Aug, Neuropathy G62.9 and Polyneu ropathy G62.9 [facility] [place] [address] [facility] [id number] [address] [place] [address] Jul, Encounter for drug screening Z02.83 [facility] [place] [address] [facility] [id number] [address] [place] [phone] Jul, Polyneuropathy G62.9 [facility] [place] [address] [facility] [id number] [address] [place] [phone] Jul, [facility] [place] [address] [facility] [id number] [address] [place] [phone] Jul, Neuropathy G62.9 and Anxiety F41.9 [facility] [place] [address] [facility] [id number] [address] [place] [id number] Jul, [facility] [place] [address] [facility] [id number] [address] [place] [phone] Jul, [facility] [place] [address] [facility] [id number] [address] [place] [id number] Jul, [facility] [place] [address] [facility] [id number] [address] [place] [id number] Jul, Polyneuropathy G62.9 [facility] [place] [address] [facility] [id number] [address] [place] [phone] Jul, [facility] [place] [address] [facility] [id number] [address] [place] [phone] Jun, [facility] [place] [address] [facility] [id number] [address] [place] [phone] Jun, [facility] [place] [address] [facility] [id number] [address] [place] [phone] Jun, [facility] [address] [id number] [address] [place] [address] Jun, Encounter for dental examina tion Z01.20 [facility] [place] [address] [facility] [id number] [address] [place] [phone] Jun, Polyneuropathy G62.9 and Anx iety F41.9 [facility] [place] [address] [facility] [id number] [address] [place] [phone] Jun, [facility] [address] [id number] [address] [place] [address] May, Dental examination Z01.20 [facility] [place] [address] [facility] [id number] [address] [place] [id number] May, Polyneuropathy G62.9 [facility] [place] [address] [facility] [id number] [address] [place] [id number] Apr, Polyneuropathy G62.9 [facility] [place] [address] [place] [id number] [address] [place] [phone] Apr, Polyneuropathy G62.9 [facility] [place] [address] [facility] [id number] [address] [place] [id number] Apr, Hypertension, benign I10 ; P olyneuropathy G62.9 and Anxiety F41.9 [facility] [place] [address] [facility] [id number] [address] [place] [phone] Apr, Primary insomnia F51.01 and Polyneuropathy G62.9 [facility] [place] [address] [facility] [id number] [address] [place] [phone] Apr, Primary insomnia F51.01 and Polyneuropathy G62.9 [facility] [place] [address] [facility] [id number] [address] [place] [address] Mar, Primary insomnia F51.01 [facility] [place] [address] [facility] [id number] [address] [place] [id number] Mar, [facility] [place] [address] [facility] [id number] [address] [place] [address] Mar, Polyneuropathy G62.9 [facility] [place] [address] [id number] [address] [place] [address], [place] [address] Feb, Primary insomnia F51.01 [facility] [address] [id number] [address] [place] [address], [place] [phone] Feb, [facility] [address] [id number] [address] [place] [address], [place] [id number] Feb, [facility] [place] [address] [id number] [address] [place] [address], [place] [address] Feb, Polyneuropathy G62.9 [facility] [address] [id number] [address] [place] [address], [place] [address] Feb, Primary insomnia F51.01 [facility] [place] [address] [id number] [address] [place] [address], [place] [address] Jan, [facility] [place] [address] [id number] [address] [place] [address], [place] [address] Jan, [facility] [place] [address] [id number] [address] [place] [address], [place] [address] Dec, [facility] [place] [address] [id number] [address] [place] [address], [place] [address] Dec, Primary insomnia F51.01 [facility] [place] [address] [id number] [address] [place] [address], [place] [address] Dec, Primary insomnia F51.01 [facility] [place] [address] [id number] [address] [place] [address], [place] [address] Dec, [facility] [address] [id number] [address] [place] [address], [place] [address] Dec, [facility] [address] [id number] [address] [place] [address], [place] [address] Dec, [facility] [address] [id number] [address] [place] [address], [place] [address] Dec, [facility] [address] [id number] [address] [place] [phone] November, Primary insomnia F51.01 and Polyneuropathy G62.9 [facility] [place] [address] [facility] [id number] [address] [place] [address] November, [facility] [place] [address] [facility] [id number] [address] [place] [address] November, Abdominal pain, left lower q uadrant R10.32 [facility] [place] [address] [facility] [id number] [address] [place] [id number] November, [facility] [place] [address] [place] [id number] [address] [place] [address] Oct, [facility] [place] [address] [place] [id number] [address] [place] [address] Oct, Abdominal pain, left lower q uadrant R10.32 ; H/O malignant carcinoid tumor of rectum Z85.040 and Neuropathy G62.9 [facility] [place] [address] [place] [id number] [address] [place] [id number] Oct, [facility] [place] [address] [place] [id number] [address] [place] [id number] Sep, [facility] [address] [place] [id number] [place] [id number] Sep, [facility] [place] [address] [place] [id number] [address] [place] [phone] Sep, [facility] [place] [address] [place] [id number] [address] [place] [phone] Aug, [facility] [place] [address] [facility] [id number] [address] [place] [id number] Aug, [facility] [place] [address] [place] [id number] [address] [place] [address] Aug, Abdominal pain, left lower q uadrant R10.32 ; Neuropathy G62.9 and Anxiety F41.9 [facility] [address] [place] [address] Jul, [facility] [place] [address] [id number] [address] [place] [id number] Jul, [facility] [address] [id number] [address] [place] [address] Jul, [facility] [place] [address] [id number] [address] [place] [id number] Jul, [facility] [place] [address] [id number] [address] [place] [id number] Jul, [facility] [place] [address] [id number] [address] [place] [id number] Jun, [facility] [place] [address] [id number] [address] [place] [phone] May, [facility] [place] [address] [id number] [address] [place] [address] May, [facility] [place] [address] [id number] [address] [place] [id number] Apr, [facility] [place] [address] [id number] [address] [place] [address] Apr, Muscle spasms of both lower extremities M62.838 and Cellulitis, unspecified cellulitis site L03.90 [facility] [address] [id number] [address] [place] [address] Apr, [facility] [place] [address] [id number] [address] [place] [id number] 23 Mar, 2016 Generalized abdominal pain R 10.84 [facility] [place] [address] [id number] [address] [place] [phone] 20 Mar, 2016 [facility] [place] [address] [id number] [address] [place] [phone] 14 Mar, 2016 [facility] [address] [id number] [address] [place] [phone] Mar, [facility] [address] [id number] [address] [place] [id number] 13 Mar, 2016 [facility] [place] [address] [id number] [address] [place] [id number] 12 Mar, 2016 [facility] [address] [id number] [address] [place] [id number] 09 Mar, 2016 [facility] [place] [address] [id number] [address] [place] [phone] 06 Mar, 2016 [facility] [address] [id number] [address] [place] [phone] Feb, Other specified diseases of anus and rectum K62.89 [facility] [place] [address] [id number] [address] [place] [id number] Feb, [facility] [address] [id number] [address] [place] [id number] Feb, Dizziness R42 [facility] [place] [address] [id number] [address] [place] [phone] Feb, [facility] [place] [address] [id number] [address] [place] [phone] Jan, Polyneuropathy G62.9 [facility] [place] [address] [id number] [address] [place] [id number] Jan, Other specified diseases of anus and rectum K62.89 [facility] [place] [address] [id number] [address] [place] [phone] Jan, [facility] [address] [id number] [address] [place] [id number] Jan, [facility] [place] [address] [id number] [address] [place] [phone] Jan, [facility] [place] [address] [id number] [address] [place] [id number] Jan, Dizziness R42 [facility] [place] [address] [id number] [address] [place] [id number] Dec, [facility] [address] [id number] [address] [place] [address], [place] [id number] Dec, [facility] [address] [id number] [address] [place] [address], [place] [id number] Dec, [facility] [address] [id number] [address] [place] [address], [place] [id number] Dec, Dizziness R42 [facility] [address] [id number] [address] [place] [address], [place] [id number] November, [facility] [address] [id number] [address] [place] [address], [place] [id number] Oct, [facility] [address] [id number] [address] [place] [address], [place] [id number] Oct, [facility] [address] [id number] [address] [place] [address], [place] [id number] Oct, [facility] [address] [id number] [address] [place] [address], [place] [id number] Oct, [facility] [address] [id number] [address] [place] [address], [place] [id number] Sep, [facility] [address] [id number] [address] [place] [address], [place] [id number] Sep, Primary insomnia F51.01 [facility] [place] [address] [id number] [address] [place] [address], [place] [id number] Sep, Primary insomnia F51.01 [facility] [address] [id number] [address] [place] [address], [place] [id number] Sep, [facility] [address] [id number] [address] [place] [address], [place] [id number] Aug, [facility] [address] [id number] [address] [place] [address], [place] [address] Aug, [facility] [address] [id number] [address] [place] [address] [address] Aug, Primary insomnia F51.01 ; Mo od disorder F39 ; Nausea and vomiting, unspecified intactability, vomiting of unspecified type R11.2 and Diarrhea R19.7 [facility] [place] [address] [id number] Aug, [facility] [place] [address] [id number] Aug, Folliculitis L73.9 [facility] [place] [address] [id number] Aug, [facility] [place] [address] [id number] Aug, [facility] [place] [address] [id number] Jul, Folliculitis L73.9 [facility] [place] [address] [id number] Jul, [facility] [place] [address] [address] Jun, Folliculitis L73.9 [facility] [place] [address] [id number] Jun, [facility] [place] [address] [id number] May, Polyneuropathy G62.9 [facility] [place] [address] [id number] May, Other specified diseases of anus and rectum K62.89 [facility] [place] [address] [id number] May, [facility] [place] [address] [address] May, Primary insomnia F51.01 [facility] [place] [address] [id number] May, [facility] [place] [address] [id number] [address] [place] [id number] May, [facility] [place] [address] [id number] [address] [place] [id number] Apr, Other specified diseases of anus and rectum K62.89 ; Chronic fatigue R53.82 ; Urinary tract infection, site not specified N39.0 and Enterococcus as the cause of diseases classified elsewhere B95.2 [facility] [place] [address] [id number] [address] [place] [id number] 16 Apr, 2015 [facility] [place] [address] [id number] [address] [place] [id number] Apr, [facility] [place] [address] [id number] [address] [place] [id number] Apr, 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 [facility] [place] [address] [id number] [address] [place] [id number] 05 Apr, 2015 [facility] [place] [address] [id number] [address] [place] [id number] 26 Mar, 2015 [facility] [place] [address] [id number] [address] [place] [id number] 23 Mar, 2015 [facility] [place] [address] [id number] [address] [place] [id number] 17 Mar, 2015 [facility] [place] [address] [id number] [address] [place] [id number] 14 Mar, 2015 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 [facility] [place] [address] [id number] [address] [place] [phone] 12 Mar, 2015 [facility] [place] [address] [id number] [address] [place] [phone] Mar, [facility] [place] [address] [id number] [address] [place] [phone] Mar, [facility] [address] [id number] [address] [place] [phone] Mar, [facility] [address] [id number] [address] [place] [phone] Feb, [facility] [address] [id number] [address] [place] [id number] Feb, [facility] [address] [id number] [address] [place] [phone] Feb, [facility] [address] [id number] [address] [place] [id number] Jan, [facility] [address] [id number] [address] [place] [phone] Jan, Nausea 787.02 and Neuropathy 355.9 [facility] [address] [id number] [address] [place] [phone] Jan, [facility] [address] [id number] [address] [place] [phone] Jan, [facility] [address] [id number] [address] [place] [phone] Jan, [facility] [address] [id number] [address] [place] [id number] Jan, Dental examination V72.2 [facility] [address] [id number] [address] [place] [phone] Jan, [facility] [address] [id number] [address] [place] [phone] Dec, [facility] [address] [id number] [address] [place] [phone] Dec, [facility] [address] [id number] [address] [place] [phone] Dec, Neuropathy 355.9 [facility] [address] [id number] [address] [place] [phone] November, [facility] [address] [id number] [address] [place] [address], [place] [address] November, [facility] [address] [id number] [address] [place] [address], [place] [address] November, [facility] [address] [id number] [address] [place] [address], [place] [address] Oct, [facility] [address] [id number] [address] [place] [address], [place] [address] Oct, [facility] [address] [id number] [address] [place] [address], [place] [address] Sep, [facility] [address] [id number] [address] [place] [address], [place] [address] Sep, [facility] [address] [id number] [address] [place] [address], [place] [address] Sep, [facility] [address] [id number] [address] [place] [address], [place] [address] Sep, [facility] [address] [id number] [address] [place] [address], [place] [address] Sep, [facility] [address] [id number] [address] [place] [address], [place] [address] Sep, [facility] [address] [id number] [address] [place] [address], [place] [address] Sep, [facility] [address] [id number] [address] [place] [address], [place] [address] Sep, [facility] [address] [id number] [address] [place] [address], [place] [address] Aug, [facility] [address] [id number] [address] [place] [address], [place] [address] Aug, [facility] [address] [id number] [address] [place] [address], [place] [address] Aug, [facility] [address] [id number] [address] [place] [address], [place] [address] Aug, [facility] [address] [id number] [facility] [place] [address] Aug, 2014 [facility] [address] [id number] [address] [place] [address], [place] [address] Aug, 2014 [facility] [address] [id number] [address] [place] [address], [place] [address] Aug, 2014 [facility] [address] [id number] [address] [place] [address], [place] [address] Aug, 2014 [facility] [address] [id number] [address] [place] [address], [place] [address] Jul, [facility] [address] [id number] [address] [place] [address], [place] [address] Jul, [facility] [address] [id number] [address] [place] [address], [place] [address] Jun, [facility] [address] [id number] [address] [place] [address], [place] [address] Jun, [facility] [address] [id number] [address] [place] [address], [place] [address] Jun, [facility] [address] [id number] [address] [place] [address], [place] [address] Jun, [facility] [address] [id number] [address] [place] [address], [place] [address] Jun, [facility] [address] [id number] [address] [place] [address], [place] [address] Jun, [facility] [address] [id number] [address] [place] [address], [place] [address] Jun, [facility] [address] [id number] [address] [place] [address], [place] [address] Jun, [facility] [address] [id number] [address] [place] [address], [place] [address] Jun, [facility] [address] [id number] [address] [place] [address], [place] [address] Jun, [facility] [address] [id number] [address] [place] [address], [place] [address] Jun, [facility] [address] [id number] [address] [place] [address], [place] [address] May, [facility] [address] [id number] [address] [place] [address], [place] [address] May, [facility] [address] [id number] [address] [place] [address], [place] [address] May, [facility] [address] [id number] [address] [place] [address], [place] [address] May, [facility] [address] [id number] [address] [place] [address], [place] [address] May, [facility] [address] [id number] [address] [place] [address], [place] [address] May, [facility] [address] [id number] [address] [place] [address], [place] [address] May, [facility] [address] [id number] [address] [place] [address], [place] [address] May, [facility] [address] [id number] [address] [place] [address], [place] [address] May, [facility] [address] [id number] [address] [place] [address], [place] [address] Apr, [facility] [address] [id number] [address] [place] [address], [place] [address] Apr, [facility] [address] [id number] [address] [place] [address], [place] [address] Apr, [facility] [address] [id number] [address] [place] [address], [place] [address] Apr, [facility] [address] [id number] [address] [place] [address], [place] [address] Apr, [facility] [address] [id number] [facility] [place] [address] Mar, [facility] [address] [id number] [address] [place] [address], [place] [address] Mar, [facility] [address] [id number] [address] [place] [address], [place] [address] Feb, [facility] [address] [id number] [address] [place] [address], [place] [address] Feb, [facility] [address] [id number] [address] [place] [address], [place] [address] Feb, [facility] [address] [id number] [address] [place] [address], [place] [address] Feb, [facility] [address] [id number] [address] [place] [address], [place] [address] Feb, [facility] [address] [id number] [address] [place] [address], [place] [address] Feb, [facility] [address] [id number] [address] [place] [address], [place] [address] Jan, [facility] [address] [id number] [address] [place] [address], [place] [address] Jan, [facility] [address] [id number] [address] [place] [address], [place] [address] Jan, [facility] [address] [id number] [address] [place] [address], [place] [address] Jan, [facility] [address] [id number] [address] [place] [address], [place] [address] Jan, [facility] [address] [id number] [address] [place] [address], [place] [address] Jan, [facility] [address] [id number] [address] [place] [address], [place] [address] Jan, [facility] [address] [id number] [address] [place] [address], [place] [address] Jan, [facility] [address] [id number] [facility] [place] [address] Jan, [facility] [address] [id number] [address] [place] [address], [place] [address] Jan, [facility] [address] [id number] [facility] [place] [address] Jan, [facility] [address] [id number] [address] [place] [address], [place] [address] Dec, [facility] [address] [id number] [address] [place] [address], [place] [address] Dec, [facility] [address] [id number] [address] [place] [address], [place] [address] Dec, [facility] [address] [id number] [address] [place] [address], [place] [address] Dec, [facility] [address] [id number] [address] [place] [address], [place] [address] Dec, [facility] [address] [id number] [address] [place] [address], [place] [address] Dec, [facility] [address] [id number] [address] [place] [address], [place] [address] November, [facility] [address] [id number] [address] [place] [address], [place] [address] November, [facility] [address] [id number] [address] [place] [address], [place] [address] November, [facility] [address] [id number] [address] [place] [address], [place] [address] November, [facility] [address] [id number] [address] [place] [address], [place] [address] November, [facility] [address] [id number] [address] [place] [address], [place] [address] November, [facility] [address] [id number] [facility] [place] [address] 30 Oct, 2013 [facility] [address] [id number] [address] [place] [address], [place] [address] 30 Oct, 2013 [facility] [address] [id number] [address] [place] [address], [place] [address] 16 Oct, 2013 [facility] [address] [id number] [address] [place] [address], [place] [address] Oct, [facility] [address] [id number] [address] [place] [address], [place] [address] Sep, [facility] [address] [id number] [address] [place] [address], [place] [address] Sep, [facility] [address] [id number] [address] [place] [address], [place] [address] Sep, [facility] [address] [id number] [address] [place] [address], [place] [address] Sep, [facility] [address] [id number] [address] [place] [address], [place] [address] Sep, [facility] [address] [id number] [address] [place] [address], [place] [address] Aug, [facility] [address] [id number] [address] [place] [address], [place] [address] Aug, [facility] [address] [id number] [address] [place] [address], [place] [address] Aug, [facility] [address] [id number] [address] [place] [address], [place] [address] Aug, [facility] [address] [id number] [address] [place] [address], [place] [address] 14 Aug, 2013 [facility] [address] [place] [id number] May, [facility] [address] [id number] [address] [place] [address], [place] [address] May, [facility] [address] [id number] [address] [place] [address], [place] [address] May, [facility] [address] [id number] [address] [place] [address], [place] [address] May, [facility] [address] [id number] [address] [place] [address], [place] [address] May, [facility] [address] [id number] [address] [place] [address], [place] [address] Apr, [facility] [address] [id number] [address] [place] [address], [place] [address] Apr, [facility] [address] [id number] [address] [place] [address], [place] [address] Apr, [facility] [address] [id number] [address] [place] [address], [place] [address] Apr, [facility] [address] [id number] [address] [place] [address], [place] [address] Apr, [facility] [address] [id number] [address] [place] [address], [place] [address] Apr, [facility] [address] [id number] [address] [place] [address], [place] [address] Apr, [facility] [address] [id number] [address] [place] [address], [place] [address] 28 Mar, 2013 [facility] [address] [id number] [address] [place] [address], [place] [address] 25 Mar, 2013 [facility] [address] [id number] [address] [place] [address], [place] [address] 24 Sep2012 [facility] [address] [id number] [address] [place] [address] [address] 16 Sep2012 [facility] [address] [id number] [address] [place] [address], [place] [address] 12 Mar, 2013 [facility] [address] [id number] [address] [place] [address] [place] [address] Mar, [facility] [address] [id number] [address] [place] [address], [place] [address] Feb, [facility] [address] [id number] [address] [place] [address], [place] [address] Feb, [facility] [address] [id number] [address] [place] [address], [place] [address] Feb, [facility] [address] [id number] [address] [place] [address], [place] [address] Feb, [facility] [address] [id number] [address] [place] [address], [place] [address] Feb, [facility] [address] [id number] [address] [place] [address], [place] [address] Feb, [facility] [address] [id number] [address] [place] [address], [place] [address] Jan, [facility] [address] [id number] [address] [place] [address], [place] [address] Dec, [facility] [address] [id number] [address] [place] [address], [place] [id number] Dec, [facility] [address] [id number] [address] [place] [address], [place] [id number] Dec, [facility] [address] [id number] [address] [place] [address], [place] [id number] Dec, [facility] [address] [id number] [address] [place] [address], [place] [address] Dec, [facility] [address] [id number] [address] [place] [address], [place] [id number] 18 Dec, 2012 [facility] [address] [id number] [address] [place] [address], [place] [id number] 17 Dec, 2012 [facility] [address] [id number] [address] [place] [address], [place] [id number] 12 Dec, 2012 [facility] [address] [id number] [address] [place] [address], [place] [id number] Dec, [facility] [address] [id number] [address] [place] [address], [place] [id number] November, [facility] [address] [id number] [address] [place] [address], [place] [id number] November, [facility] [address] [id number] [address] [place] [address], [place] [id number] Oct, [facility] [address] [id number] [address] [place] [address], [place] [id number] Sep, [facility] [address] [id number] [address] [place] [address], [place] [address] Sep, [facility] [address] [id number] [address] [place] [address], [place] [address] Sep, [facility] [address] [id number] [address] [place] [address], [place] [address] Sep, [facility] [address] [id number] [address] [place] [address], [place] [id number] Aug, [facility] [address] [id number] [address] [place] [address], [place] [id number] Aug, [facility] [address] [id number] [address] [place] [address], [place] [id number] Jul, [facility] [address] [id number] [address] [place] [address], [place] [address] Jul, [facility] [address] [id number] [address] [place] [address], [place] [address] Jul, [facility] [address] [id number] [address] [place] [address], [place] [id number] 22 Sep, 2011 [facility] [address] [id number] [address] [place] [address], [place] [id number] 17 Sep, 2011 [facility] [address] [id number] [address] [place] [address], [place] [address] Sep, IMMUNIZATIONS No Known Immunizations SOCIAL HISTORY Never Assessed REASON FOR VISIT Request return call PLAN OF CARE VITAL SIGNS [...] bowel obstruction, Dehydration -[facility] 01/01/17 Hospitalization History [facility]- UTI/Sepsis 01/18/2018 Hospitalization History [facility] - infection 4 days 05/2018
--- OUTSIDE RECORDS SUMMARY | 2020-01-14 23:12 | XMS REPORT ---
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 Role Phone Migration, Doctor Unavailable Unavailable PROBLEMS Type Condition ICD9-CM Code VOF23-JD Code Onset Dates Condition S tatus SNOMED Code Problem Primary insomnia F51.01 Active 193 145783 Problem Chronic fatigue, unspecified R53.82 A ctive 641439078 Problem Incontinence of feces, unspecified fecal incontinence type R15.9 Active 12177328 Problem Abdominal pain, left lower quadrant R10.32 Active 069037463 Problem Hypertension, benign I10 Active 51148677 Problem Mood disorder F39 Active 902832 05 Problem Attention to urostomy Z43.6 Active 207426106 Problem 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 685135795 Problem Chronic pain syndrome G89.4 Active 261570102 Problem Hydronephrosis with ureteral stricture, not else where classified N13.1 Active 76806116 Problem Neuropathy G62.9 Active 265194351 Problem Anxiety F41.9 Active 98833293 Problem Polyneuropathy G62.9 Active 96960 000 Problem Malignant neoplasm of colon, unspecified part of colon C18.9 Active 756286307 ALLERGIES No Information ENCOUNTERS Encounter Location Date Diagnosis [place] [address] [address] [facility] [id number] [address] [place] [id number] Oct, [facility] [address] [facility] [id number] [address] [place] [id number] Sep, [facility] [address] [facility] [id number] [address] [place] [phone] Sep, Neuropathy G62.9 [facility] [address] [facility] [id number] [address] [place] [id number] Sep, [place] [address] [address] [facility] [id number] [address] [place] [id number] Sep, H/O malignant carcinoid tumo r of rectum Z85.040 and Primary insomnia F51.01 [facility] [address] [id number] [address] [place] [id number] Aug, [facility] [address] [id number] [address] [place] [phone] Aug, Neuropathy G62.9 [facility] [address] [id number] [address] [place] [phone] Aug, [facility] [address] [id number] [address] [place] [address] Jul, Non-recurrent acute suppurat francine otitis media of left ear without spontaneous rupture of tympanic membrane H66.002 [facility] [address] [id number] [address] [place] [address] Jul, Neuropathy G62.9 [facility] [address] [id number] [address] [place] [id number] Jun, [facility] [address] [id number] [address] [place] [id number] Jun, [facility] [address] [id number] [address] [place] [address] Jun, Neuropathy G62.9 [facility] [address] [facility] [id number] [address] [place] [phone] Jun, [facility] [address] [id number] [address] [place] [phone] Jun, [facility] [address] [facility] [id number] [address] [place] [phone] Jun, Lumbar neuritis M54.16 [facility] [address] [id number] [address] [place] [phone] May, Neuropathy G62.9 [facility] [address] [facility] [id number] [address] [place] [phone] May, [facility] [address] [id number] 05 May, 2018 Neuropathy G62.9 and Hyperte nsion, benign I10 [facility] [address] [id number] 09 Apr, 2018 Polyneuropathy G62.9 and Hyp ertension, benign I10 [facility] [address] [id number] 17 Mar, 2018 Chronic pain syndrome G89.4 and Hypertension, benign I10 [facility] [address] [place] [id number] [place] [id number] 11 Mar, 2018 Polyneuropathy G62.9 and Hyp ertension, benign I10 [place] [address] [address] [place] [id number] [place] [id number] 27 Feb, 2018 [place] [address] [address] Feb, Hypertension, benign I10 [facility] [address] [id number] 15 Feb, 2018 Hypertension, benign I10 ; P olyneuropathy G62.9 and Primary insomnia F51.01 [facility] [address] [place] [id number] [place] [phone] Jan, Hypertension, benign I10 and Polyneuropathy G62.9 [facility] [address] [id number] Jan, Hypertension, benign I10 and Neuropathy G62.9 [facility] [address] [place] [id number] [address] [place] [phone] Jan, [facility] [address] [address] Dec, Polyneuropathy G62.9 [facility] [address] [place] [id number] [place] [id number] 14 Dec, 2017 Mood disorder F39 [facility] [address] [place] [id number] [address] [place] [address] November, Polyneuropathy G62.9 [facility] [address] [facility] [id number] [address] [place] [address] November, Medicare annual wellness vis it, initial Z00.00 [facility] [address] [facility] [id number] [address] [place] [phone] November, Mood disorder F39 [facility] [address] [facility] [id number] [address] [place] [address] Oct, Polyneuropathy G62.9 [facility] [address] [id number] [address] [place] [address] Oct, [facility] [address] [facility] [id number] [address] [place] [phone] Oct, [facility] [address] [facility] [id number] [address] [place] [id number] Oct, Mood disorder F39 ; Attentio n to urostomy Z43.6 ; Chronic pain syndrome G89.4 and Polyneuropathy G62.9 [facility] [address] [facility] [id number] [address] [place] [address] Sep, Polyneuropathy G62.9 [facility] [address] [facility] [id number] [address] [place] [phone] Sep, [facility] [address] [facility] [id number] [address] [place] [id number] Sep, Polyneuropathy G62.9 [facility] [address] [facility] [id number] [address] [place] [address] Aug, Polyneuropathy G62.9 [facility] [address] [facility] [id number] [address] [place] [address] Aug, Malignant neoplasm of colon, unspecified part of colon C18.9 and Polyneuropathy G62.9 [facility] [address] [facility] [id number] [address] [place] [address] Aug, Neuropathy G62.9 and Polyneu ropathy G62.9 [facility] [address] [facility] [id number] [address] [place] [address] Jul, Encounter for drug screening Z02.83 [facility] [address] [facility] [id number] [address] [place] [address] Jul, Polyneuropathy G62.9 [facility] [address] [id number] [address] [place] [id number] Jul, [facility] [address] [facility] [id number] [address] [place] [address] Jul, Neuropathy G62.9 and Anxiety F41.9 [facility] [address] [facility] [id number] [address] [place] [address] Jul, [facility] [address] [facility] [id number] [address] [place] [phone] Jul, [facility] [address] [id number] [address] [place] [phone] Jul, [facility] [address] [facility] [id number] [address] [place] [address] Jul, Polyneuropathy G62.9 [facility] [address] [facility] [id number] [address] [place] [address] Jul, [facility] [address] [facility] [id number] [address] [place] [phone] Jun, [facility] [address] [facility] [id number] [address] [place] [id number] Jun, [facility] [address] [facility] [id number] [address] [place] [phone] Jun, [facility] [address] [id number] [address] [place] [address] 07 Jun, 2017 Encounter for dental examina tion Z01.20 [facility] [id number] [place] [address] Jun, Polyneuropathy G62.9 and Anx iety F41.9 [facility] [id number] [place] [address] Jun, [facility] [address] [place] [id number] [place] [address] May, Dental examination Z01.20 [facility] [address] [address] May, Polyneuropathy G62.9 [facility] [address] [address] Apr, Polyneuropathy G62.9 [facility] [address] [address] Apr, Polyneuropathy G62.9 [facility] [address] [address] Apr, Hypertension, benign I10 ; P olyneuropathy G62.9 and Anxiety F41.9 [facility] [address] [place] [id number] [address] [place] [address] Apr, Primary insomnia F51.01 and Polyneuropathy G62.9 [facility] [address] [address] Apr, Primary insomnia F51.01 and Polyneuropathy G62.9 [facility] [address] [place] [id number] [address] [place] [address] Mar, Primary insomnia F51.01 [facility] [address] [address] Mar, [facility] [address] [place] [id number] [address] [place] [address] Mar, Polyneuropathy G62.9 [facility] [address] [place] [id number] [address] [place] [address] Feb, Primary insomnia F51.01 [facility] [address] [id number] [address] [place] [address], [place] [id number] Feb, [facility] [address] [id number] [address] [place] [address], [place] [id number] Feb, [facility] [address] [id number] [address] [place] [address], [place] [id number] Feb, Polyneuropathy G62.9 [facility] [address] [id number] [address] [place] [address], [place] [id number] Feb, Primary insomnia F51.01 [facility] [address] [id number] [address] [place] [address], [place] [id number] Jan, [facility] [address] [facility] [id number] [address] [place] [address], [place] [id number] Jan, [facility] [address] [id number] [address] [place] [address] Dec, [facility] [address] [id number] [address] [place] [address], [place] [id number] Dec, Primary insomnia F51.01 [facility] [address] [id number] [address] [place] [address], [place] [id number] Dec, Primary insomnia F51.01 [facility] [address] [id number] [address] [place] [address], [place] [id number] Dec, [facility] [address] [id number] [address] [place] [address] Dec, [facility] [address] [id number] [address] [place] [address] Dec, [facility] [address] [facility] [id number] [address] [place] [address], [place] [id number] Dec, [facility] [address] [facility] [id number] [address] [place] [id number] November, Primary insomnia F51.01 and Polyneuropathy G62.9 [facility] [address] [facility] [id number] [address] [place] [address] November, [facility] [address] [place] [id number] [address] [place] [phone] November, Abdominal pain, left lower q uadrant R10.32 [facility] [address] [place] [id number] [address] [place] [address] November, [facility] [address] [facility] [id number] [address] [place] [address] Oct, [facility] [address] [place] [id number] [address] [place] [address] Oct, Abdominal pain, left lower q uadrant R10.32 ; H/O malignant carcinoid tumor of rectum Z85.040 and Neuropathy G62.9 [facility] [address] [place] [id number] [address] [place] [address] Oct, [facility] [address] [facility] [id number] [address] [place] [address] Sep, [facility] [address] [place] [id number] [place] [id number] Sep, [facility] [address] [place] [id number] [address] [place] [address] Sep, [facility] [address] [place] [id number] [address] [place] [address] Aug, [facility] [address] [facility] [id number] [address] [place] [phone] Aug, [facility] [address] [place] [id number] [address] [place] [address] Aug, Abdominal pain, left lower q uadrant R10.32 ; Neuropathy G62.9 and Anxiety F41.9 [facility] [address] [place] [address] Jul, [facility] [address] [place] [id number] [place] [address] Jul, [facility] [address] [id number] [address] [place] [address] Jul, [facility] [address] [id number] [address] [place] [address] Jul, [facility] [address] [id number] [address] [place] [address] Jul, [facility] [address] [id number] [address] [place] [address] Jun, [facility] [address] [id number] [address] [place] [address] May, [facility] [address] [id number] [address] [place] [address] May, [facility] [address] [id number] [address] [place] [address] Apr, [facility] [address] [id number] [address] [place] [address] Apr, Muscle spasms of both lower extremities M62.838 and Cellulitis, unspecified cellulitis site L03.90 [facility] [address] [id number] [address] [place] [address] Apr, [facility] [address] [id number] [address] [place] [address] 23 Mar, 2016 Generalized abdominal pain R 10.84 [facility] [address] [id number] [address] [place] [address] 20 Mar, 2016 [facility] [address] [id number] [address] [place] [address] 14 Mar, 2016 [facility] [address] [id number] [address] [place] [address] 14 Mar, 2016 [facility] [address] [id number] [address] [place] [id number] 13 Mar, 2016 [facility] [address] [id number] [address] [place] [id number] 12 Mar, 2016 [facility] [address] [id number] [address] [place] [address] Mar, [facility] [address] [id number] [address] [place] [address] Mar, [facility] [address] [id number] [address] [place] [address] Feb, Other specified diseases of anus and rectum K62.89 [facility] [address] [id number] [address] [place] [address] Feb, [facility] [address] [id number] [address] [place] [id number] Feb, Dizziness R42 [facility] [address] [id number] [address] [place] [address] Feb, [facility] [address] [id number] [address] [place] [address] Jan, Polyneuropathy G62.9 [facility] [address] [id number] [address] [place] [address] Jan, Other specified diseases of anus and rectum K62.89 [facility] [address] [id number] [address] [place] [id number] Jan, [facility] [address] [id number] [address] [place] [id number] Jan, [facility] [address] [id number] [address] [place] [address] Jan, [facility] [address] [id number] [address] [place] [address] Jan, Dizziness R42 [facility] [address] [id number] [address] [place] [address] Dec, [facility] [address] [id number] [address] [place] [id number] Dec, [facility] [address] [id number] [address] [place] [address], [place] [id number] Dec, [facility] [address] [id number] [address] [place] [address], [place] [id number] Dec, Dizziness R42 [facility] [address] [id number] [address] [place] [phone] November, [facility] [address] [id number] [address] [place] [address], [place] [id number] Oct, [facility] [address] [id number] [address] [place] [address], [place] [id number] Oct, [facility] [address] [id number] [address] [place] [phone] Oct, [facility] [address] [id number] [address] [place] [phone] Oct, [facility] [address] [id number] [address] [place] [address] Sep, [facility] [address] [id number] [address] [place] [address] Sep, Primary insomnia F51.01 [facility] [address] [facility] [id number] [address] [place] [address] Sep, Primary insomnia F51.01 [facility] [address] [id number] [address] [place] [id number] Sep, [facility] [address] [id number] [address] [place] [phone] Aug, [facility] [address] [id number] [address] [place] [phone] Aug, [facility] [address] [facility] [id number] [address] [place] [address] Aug, Primary insomnia F51.01 ; Mo od disorder F39 ; Nausea and vomiting, unspecified intactability, vomiting of unspecified type R11.2 and Diarrhea R19.7 [facility] [address] [place] [id number] [address] [place] [id number] Aug, [facility] [address] [place] [id number] [address] [place] [address] Aug, Folliculitis L73.9 [facility] [address] [place] [id number] [place] [phone] Aug, [facility] [id number] [place] [phone] Aug, [facility] [id number] [place] [phone] Jul, Folliculitis L73.9 [facility] [id number] [place] [id number] Jul, [facility] [address] [id number] Jun, Folliculitis L73.9 [facility] [address] [id number] Jun, [facility] [address] [id number] May, Polyneuropathy G62.9 [facility] [id number] [place] [id number] May, Other specified diseases of anus and rectum K62.89 [facility] [id number] [place] [phone] May, [facility] [address] [id number] May, Primary insomnia F51.01 [facility] [id number] [place] [id number] May, [facility] [id number] [place] [phone] May, [facility] [address] [id number] [address] [place] [id number] Apr, Other specified diseases of anus and rectum K62.89 ; Chronic fatigue R53.82 ; Urinary tract infection, site not specified N39.0 and Enterococcus as the cause of diseases classified elsewhere B95.2 [facility] [address] [id number] [address] [place] [id number] 16 Apr, 2015 [facility] [address] [id number] [address] [place] [id number] 15 Apr, 2015 [facility] [address] [id number] [address] [place] [id number] Apr, 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 [facility] [address] [id number] [address] [place] [id number] 05 Apr, 2015 [facility] [address] [id number] [address] [place] [phone] 26 Mar, 2015 [facility] [address] [id number] [address] [place] [id number] 23 Mar, 2015 [facility] [address] [id number] [address] [place] [phone] 17 Mar, 2015 [facility] [address] [id number] [address] [place] [id number] 14 Mar, 2015 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 [facility] [address] [id number] [address] [place] [phone] 12 Mar, 2015 [facility] [address] [id number] [address] [place] [id number] 11 Mar, 2015 [facility] [address] [id number] [address] [place] [id number] 11 Mar, 2015 [facility] [address] [id number] [address] [place] [phone] Mar, [facility] [address] [id number] [address] [place] [phone] Feb, [facility] [address] [id number] [address] [place] [id number] Feb, [facility] [address] [id number] [address] [place] [id number] Feb, [facility] [address] [id number] [address] [place] [id number] Jan, [facility] [address] [id number] [address] [place] [id number] Jan, Nausea 787.02 and Neuropathy 355.9 [facility] [address] [id number] [address] [place] [id number] Jan, [facility] [address] [id number] [address] [place] [id number] Jan, [facility] [address] [id number] [address] [place] [id number] Jan, [facility] [address] [id number] [address] [place] [id number] Jan, Dental examination V72.2 [facility] [address] [id number] [address] [place] [id number] Jan, [facility] [address] [id number] [address] [place] [id number] Dec, [facility] [address] [id number] [address] [place] [id number] Dec, [facility] [address] [id number] [address] [place] [id number] Dec, Neuropathy 355.9 [facility] [address] [id number] [address] [place] [id number] November, [facility] [address] [id number] [address] [place] [phone] November, [facility] [address] [id number] [address] [place] [address], [place] [id number] November, [facility] [address] [id number] [address] [place] [address], [place] [id number] Oct, [facility] [address] [id number] [address] [place] [address], [place] [id number] Oct, [facility] [address] [id number] [address] [place] [address], [place] [id number] Sep, [facility] [address] [id number] [address] [place] [address], [place] [id number] Sep, [facility] [address] [id number] [address] [place] [address], [place] [id number] Sep, [facility] [address] [id number] [address] [place] [address], [place] [id number] Sep, [facility] [address] [id number] [address] [place] [address], [place] [id number] Sep, [facility] [address] [id number] [address] [place] [address], [place] [id number] Sep, [facility] [address] [id number] [address] [place] [address], [place] [id number] Sep, [facility] [address] [id number] [address] [place] [address], [place] [id number] Sep, [facility] [address] [id number] [address] [place] [address], [place] [id number] Aug, [facility] [address] [id number] [address] [place] [address], [place] [id number] Aug, [facility] [address] [id number] [address] [place] [address], [place] [id number] Aug, [facility] [address] [id number] [address] [place] [address], [place] [id number] Aug, [facility] [address] [id number] [address] [place] [address], [place] [id number] Aug, 2014 [facility] [address] [id number] [address] [place] [address], [place] [id number] Aug, 2014 [facility] [address] [id number] [address] [place] [address], [place] [id number] Aug, 2014 [facility] [address] [id number] [address] [place] [address], [place] [id number] Aug, [facility] [address] [id number] [address] [place] [address], [place] [id number] Jul, [facility] [address] [id number] [address] [place] [address], [place] [id number] Jul, [facility] [address] [id number] [address] [place] [address], [place] [id number] Jun, [facility] [address] [id number] [address] [place] [address], [place] [id number] Jun, [facility] [address] [id number] [address] [place] [address], [place] [id number] Jun, [facility] [address] [id number] [address] [place] [address], [place] [id number] Jun, [facility] [address] [id number] [address] [place] [address], [place] [id number] Jun, [facility] [address] [id number] [address] [place] [address], [place] [id number] Jun, [facility] [address] [id number] [address] [place] [address], [place] [id number] Jun, [facility] [address] [id number] [address] [place] [address], [place] [id number] Jun, [facility] [address] [id number] [address] [place] [address], [place] [id number] Jun, [facility] [address] [id number] [address] [place] [address], [place] [id number] Jun, [facility] [address] [id number] [address] [place] [address], [place] [id number] Jun, [facility] [address] [id number] [address] [place] [address], [place] [id number] May, [facility] [address] [id number] [address] [place] [address], [place] [id number] May, [facility] [address] [id number] [address] [place] [address], [place] [id number] May, [facility] [address] [id number] [address] [place] [address], [place] [id number] May, [facility] [address] [id number] [address] [place] [address], [place] [id number] May, [facility] [address] [id number] [address] [place] [address], [place] [id number] May, [facility] [address] [id number] [address] [place] [address], [place] [id number] May, [facility] [address] [id number] [address] [place] [address], [place] [id number] May, [facility] [address] [id number] [address] [place] [address], [place] [id number] May, [facility] [address] [id number] [address] [place] [address], [place] [id number] Apr, [facility] [address] [id number] [address] [place] [address], [place] [id number] Apr, [facility] [address] [id number] [address] [place] [address], [place] [id number] Apr, [facility] [address] [id number] [address] [place] [address], [place] [id number] Apr, [facility] [address] [id number] [address] [place] [address], [place] [id number] Apr, [facility] [address] [id number] [address] [place] [address], [place] [id number] Mar, [facility] [address] [id number] [address] [place] [id number] Mar, [facility] [address] [id number] [address] [place] [address], [place] [id number] Feb, [facility] [address] [id number] [address] [place] [address], [place] [id number] Feb, [facility] [address] [id number] [address] [place] [address], [place] [id number] Feb, [facility] [address] [id number] [address] [place] [address], [place] [id number] Feb, [facility] [address] [id number] [address] [place] [address], [place] [id number] Feb, [facility] [address] [id number] [address] [place] [address], [place] [id number] Feb, [facility] [address] [id number] [address] [place] [address], [place] [id number] Jan, [facility] [address] [id number] [address] [place] [address], [place] [id number] Jan, [facility] [address] [id number] [address] [place] [address], [place] [id number] Jan, [facility] [address] [id number] [address] [place] [address], [place] [id number] Jan, [facility] [address] [id number] [address] [place] [address], [place] [id number] Jan, [facility] [address] [id number] [address] [place] [address], [place] [id number] Jan, [facility] [address] [id number] [address] [place] [address], [place] [id number] Jan, [facility] [address] [id number] [address] [place] [address], [place] [id number] Jan, [facility] [address] [id number] [address] [place] [id number] Jan, [facility] [address] [id number] [address] [place] [id number] Jan, [facility] [address] [id number] [address] [place] [id number] Jan, [facility] [address] [id number] [address] [place] [address], [place] [id number] Dec, [facility] [address] [id number] [address] [place] [address], [place] [id number] Dec, [facility] [address] [id number] [address] [place] [address], [place] [id number] Dec, [facility] [address] [id number] [address] [place] [address], [place] [id number] Dec, [facility] [address] [id number] [address] [place] [address], [place] [id number] Dec, [facility] [address] [id number] [address] [place] [address], [place] [id number] Dec, [facility] [address] [id number] [address] [place] [address], [place] [id number] November, [facility] [address] [id number] [address] [place] [address], [place] [id number] November, [facility] [address] [id number] [address] [place] [address], [place] [id number] November, [facility] [address] [id number] [address] [place] [address], [place] [id number] November, [facility] [address] [id number] [address] [place] [address], [place] [id number] November, [facility] [address] [id number] [address] [place] [address], [place] [id number] November, [facility] [address] [id number] [address] [place] [address], [place] [id number] Oct, [facility] [address] [id number] [address] [place] [address], [place] [id number] Oct, [facility] [address] [id number] [address] [place] [address], [place] [id number] Oct, [facility] [address] [id number] [address] [place] [address], [place] [id number] Oct, [facility] [address] [id number] [address] [place] [address], [place] [id number] Sep, [facility] [address] [id number] [address] [place] [address], [place] [id number] Sep, [facility] [address] [id number] [address] [place] [address], [place] [id number] Sep, [facility] [address] [id number] [address] [place] [address], [place] [id number] Sep, [facility] [address] [id number] [address] [place] [address], [place] [id number] Sep, [facility] [address] [id number] [address] [place] [address], [place] [id number] Aug, [facility] [address] [id number] [address] [place] [address], [place] [id number] Aug, [facility] [address] [id number] [address] [place] [address], [place] [id number] Aug, [facility] [address] [id number] [address] [place] [address], [place] [id number] Aug, [facility] [address] [id number] [address] [place] [address], [place] [id number] 14 Aug, 2013 [facility] [address] [place] [id number] May, [facility] [address] [id number] [address] [place] [id number] May, [facility] [address] [id number] [address] [place] [id number] 08 May, 2013 [facility] [address] [id number] [address] [place] [address], [place] [id number] May, [facility] [address] [id number] [address] [place] [address], [place] [id number] May, [facility] [address] [id number] [address] [place] [address], [place] [id number] Apr, [facility] [address] [id number] [address] [place] [address], [place] [id number] Apr, [facility] [address] [id number] [address] [place] [address], [place] [id number] Apr, [facility] [address] [id number] [address] [place] [address], [place] [id number] Apr, [facility] [address] [id number] [address] [place] [address], [place] [id number] Apr, [facility] [address] [id number] [address] [place] [address], [place] [id number] Apr, [facility] [address] [id number] [address] [place] [address], [place] [id number] Apr, [facility] [address] [id number] [address] [place] [address], [place] [id number] 28 Mar, 2013 [facility] [address] [id number] [address] [place] [address], [place] [id number] 25 Sep, 2012 [facility] [address] [id number] [address] [place] [address], [place] [id number] 24 Sep, 2012 [facility] [address] [id number] [address] [place] [address], [place] [id number] 16 Sep, 2012 [facility] [address] [id number] [address] [place] [address], [place] [id number] 12 Sep, 2012 [facility] [address] [id number] [address] [place] [address], [place] [id number] 06 Sep, 2012 [facility] [address] [id number] [address] [place] [id number] Feb, [facility] [address] [id number] [address] [place] [id number] Feb, [facility] [address] [id number] [address] [place] [id number] Feb, [facility] [address] [id number] [address] [place] [address], [place] [id number] Feb, [facility] [address] [id number] [address] [place] [address], [place] [id number] Feb, [facility] [address] [id number] [address] [place] [address], [place] [id number] Feb, [facility] [address] [id number] [address] [place] [address], [place] [id number] Jan, [facility] [address] [id number] [address] [place] [address], [place] [id number] Dec, [facility] [address] [id number] [address] [place] [address], [place] [id number] Dec, [facility] [address] [id number] [address] [place] [address], [place] [id number] Dec, [facility] [address] [id number] [address] [place] [address], [place] [id number] Dec, [facility] [address] [id number] [address] [place] [address], [place] [id number] Dec, [facility] [address] [id number] [address] [place] [address], [place] [id number] 18 Dec, 2012 [facility] [address] [id number] [address] [place] [address], [place] [id number] 17 Dec, 2012 [facility] [address] [id number] [address] [place] [address], [place] [id number] Dec, [facility] [address] [id number] [address] [place] [address], [place] [id number] Dec, [facility] [address] [id number] [address] [place] [address], [place] [id number] November, [facility] [address] [id number] [address] [place] [address], [place] [id number] November, [facility] [address] [id number] [address] [place] [address], [place] [id number] Oct, [facility] [address] [id number] [address] [place] [address], [place] [id number] Sep, [facility] [address] [id number] [address] [place] [address], [place] [id number] Sep, [facility] [address] [id number] [address] [place] [id number] Sep, [facility] [address] [id number] [address] [place] [address], [place] [id number] Sep, [facility] [address] [id number] [address] [place] [id number] Aug, [facility] [address] [id number] [address] [place] [address], [place] [id number] Aug, [facility] [address] [id number] [address] [place] [id number] Jul, [facility] [address] [id number] [address] [place] [id number] Jul, [facility] [address] [id number] [address] [place] [id number] Jul, [facility] [address] [id number] [address] [place] [id number] Sep, [facility] [address] [id number] [address] [place] [id number] 17 Sep, 2011 [facility] [address] [id number] [address] [place] [id number] 10 Sep, 2011 IMMUNIZATIONS No Known Immunizations [...] bowel obstruction, Dehydration -VCH 01/01/17 Hospitalization History [facility]- UTI/Sepsis 01/18/2018 Hospitalization History [facility] - infection 4 days 05/2018
--- OUTSIDE RECORDS SUMMARY | 2020-01-14 23:12 | XMS REPORT ---
Author Author Melvin Hwang Doctor Organization [facility] Address Unknown Phone Unavailable Care Team Providers Care Cloth Roll Winder Name Role Phone Migration, Doctor Unavailable Unavailable PROBLEMS Type Condition ICD9-CM Code SRZ36-CS Code Onset Dates Condition S tatus SNOMED Code Problem Primary insomnia F51.01 Active 193 458046 Problem Chronic fatigue, unspecified R53.82 A ctive 599442307 Problem Incontinence of feces, unspecified fecal incontinence type R15.9 Active 75205345 Problem Abdominal pain, left lower quadrant R10.32 Active 225995207 Problem Hypertension, benign I10 Active 80252978 Problem Mood disorder F39 Active 856319 05 Problem Attention to urostomy Z43.6 Active 656910509 Problem 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 954510405 Problem Chronic pain syndrome G89.4 Active 723371964 Problem Hydronephrosis with ureteral stricture, not else where classified N13.1 Active 66223591 Problem Neuropathy G62.9 Active 278246334 Problem Anxiety F41.9 Active 38482923 Problem Polyneuropathy G62.9 Active 89103 000 Problem Malignant neoplasm of colon, unspecified part of colon C18.9 Active 197555078 ALLERGIES No Information ENCOUNTERS Encounter Location Date Diagnosis [place] [address] [facility] [id number] [address] [place] [address] Oct, Mood disorder F39 [facility] [address] [facility] [id number] [address] [place] [address] Sep, [facility] [address] [facility] [id number] [address] [place] [address] Sep, Neuropathy G62.9 [facility] [address] [facility] [id number] [address] [place] [address] Sep, [facility] [address] [facility] [id number] [address] [place] [address] Sep, H/O malignant carcinoid tumo r of rectum Z85.040 and Primary insomnia F51.01 [facility] [address] [id number] [address] [place] [address] Aug, [facility] [address] [id number] [address] [place] [address] Aug, Neuropathy G62.9 [facility] [address] [id number] [address] [place] [address] Aug, [facility] [address] [id number] [address] [place] [address] Jul, Non-recurrent acute suppurat francine otitis media of left ear without spontaneous rupture of tympanic membrane H66.002 [facility] [address] [id number] [address] [place] [address] Jul, Neuropathy G62.9 [facility] [address] [id number] [address] [place] [address] Jun, [facility] [address] [id number] [address] [place] [address] Jun, [facility] [address] [id number] [address] [place] [address] Jun, Neuropathy G62.9 [facility] [address] [id number] [address] [place] [address] Jun, [facility] [address] [id number] [address] [place] [address] Jun, [facility] [address] [id number] [address] [place] [address] Jun, Lumbar neuritis M54.16 [facility] [address] [id number] [address] [place] [address] May, Neuropathy G62.9 [facility] [address] [id number] [address] [place] [address] May, [facility] [address] [place] [id number] [address] [place] [id number] 05 May, 2018 Neuropathy G62.9 and Hyperte nsion, benign I10 [place] [address] [place] [id number] [address] [place] [id number] 09 Apr, 2018 Polyneuropathy G62.9 and Hyp ertension, benign I10 [place] [address] [place] [id number] [address] [place] [id number] 17 Mar, 2018 Chronic pain syndrome G89.4 and Hypertension, benign I10 [place] [address] [place] [id number] [address] [place] [id number] 11 Mar, 2018 Polyneuropathy G62.9 and Hyp ertension, benign I10 [place] [address] [place] [id number] [address] [place] [address] Feb, [place] [address] [address] Feb, Hypertension, benign I10 [place] [address] [place] [id number] [place] [address] 15 Feb, 2018 Hypertension, benign I10 ; P olyneuropathy G62.9 and Primary insomnia F51.01 [place] [address] [facility] [id number] [address] [place] [address] Jan, Hypertension, benign I10 and Polyneuropathy G62.9 [place] [address] [place] [id number] [address] [place] [address] Jan, Hypertension, benign I10 and Neuropathy G62.9 [place] [address] [facility] [id number] [address] [place] [address] Jan, [place] [address] [place] [id number] [address] [place] [address] Dec, Polyneuropathy G62.9 [place] [address] [place] [id number] [address] [place] [address] 14 Dec, 2017 Mood disorder F39 [place] [address] [id number] [address] [place] [address] November, Polyneuropathy G62.9 [facility] [address] [id number] [address] [place] [address] November, Medicare annual wellness vis it, initial Z00.00 [facility] [address] [id number] [address] [place] [address] November, Mood disorder F39 [facility] [address] [id number] [address] [place] [address] Oct, Polyneuropathy G62.9 [facility] [address] [id number] [address] [place] [address] Oct, [facility] [address] [id number] [address] [place] [address] Oct, [facility] [address] [facility] [id number] [address] [place] [address] Oct, Mood disorder F39 ; Attentio n to urostomy Z43.6 ; Chronic pain syndrome G89.4 and Polyneuropathy G62.9 [facility] [address] [id number] [address] [place] [address] Sep, Polyneuropathy G62.9 [facility] [address] [id number] [address] [place] [address] Sep, [facility] [address] [id number] [address] [place] [address] Sep, Polyneuropathy G62.9 [facility] [address] [id number] [address] [place] [address] Aug, Polyneuropathy G62.9 [facility] [address] [facility] [id number] [address] [place] [address] Aug, Malignant neoplasm of colon, unspecified part of colon C18.9 and Polyneuropathy G62.9 [facility] [address] [id number] [address] [place] [address] Aug, Neuropathy G62.9 and Polyneu ropathy G62.9 [facility] [address] [facility] [id number] [address] [place] [address] Jul, Encounter for drug screening Z02.83 [facility] [address] [facility] [id number] [address] [place] [address] Jul, Polyneuropathy G62.9 [facility] [address] [facility] [id number] [address] [place] [address] Jul, [facility] [address] [facility] [id number] [address] [place] [address] Jul, Neuropathy G62.9 and Anxiety F41.9 [facility] [address] [facility] [id number] [address] [place] [address] Jul, [facility] [address] [facility] [id number] [address] [place] [address] Jul, [facility] [address] [facility] [id number] [address] [place] [address] Jul, [facility] [address] [facility] [id number] [address] [place] [address] Jul, Polyneuropathy G62.9 [facility] [address] [facility] [id number] [address] [place] [address] Jul, [facility] [address] [facility] [id number] [address] [place] [address] Jun, [facility] [address] [facility] [id number] [address] [place] [address] Jun, [facility] [address] [facility] [id number] [address] [place] [address] Jun, [facility] [address] [id number] [address] [place] [address] 07 Jun, 2017 Encounter for dental examina tion Z01.20 [facility] [address] [place] [id number] [address] [place] [address] Jun, Polyneuropathy G62.9 and Anx iety F41.9 [facility] [address] [facility] [id number] [address] [place] [address] Jun, [facility] [address] [id number] [address] [place] [address] May, Dental examination Z01.20 [facility] [address] [place] [id number] [address] [place] [address] May, Polyneuropathy G62.9 [facility] [address] [place] [id number] [address] [place] [address] Apr, Polyneuropathy G62.9 [facility] [address] [place] [id number] [address] [place] [address] Apr, Polyneuropathy G62.9 [facility] [address] [place] [id number] [address] [place] [address] Apr, Hypertension, benign I10 ; P olyneuropathy G62.9 and Anxiety F41.9 [facility] [address] [place] [id number] [address] [place] [address] Apr, Primary insomnia F51.01 and Polyneuropathy G62.9 [facility] [address] [place] [id number] [address] [place] [address] Apr, Primary insomnia F51.01 and Polyneuropathy G62.9 [facility] [address] [facility] [id number] [address] [place] [address] Mar, Primary insomnia F51.01 [facility] [address] [place] [id number] [address] [place] [address] Mar, [facility] [address] [place] [id number] [address] [place] [address] Mar, Polyneuropathy G62.9 [facility] [address] [place] [id number] [address] [place] [address], [place] [address] Feb, Primary insomnia F51.01 [facility] [address] [id number] [address] [place] [address], [place] [address] Feb, [facility] [address] [id number] [address] [place] [address], [place] [address] Feb, [facility] [address] [id number] [address] [place] [address], [place] [address] Feb, Polyneuropathy G62.9 [facility] [address] [id number] [address] [place] [address], [place] [address] Feb, Primary insomnia F51.01 [facility] [address] [id number] [address] [place] [address], [place] [address] Jan, [facility] [address] [id number] [address] [place] [address], [place] [address] Jan, [facility] [address] [id number] [address] [place] [address], [place] [address] Dec, [facility] [address] [id number] [address] [place] [address], [place] [address] Dec, Primary insomnia F51.01 [facility] [address] [id number] [address] [place] [address], [place] [address] Dec, Primary insomnia F51.01 [facility] [address] [id number] [address] [place] [address], [place] [address] Dec, [facility] [address] [id number] [address] [place] [address], [place] [address] Dec, [facility] [address] [id number] [address] [place] [address] Dec, [facility] [address] [id number] [address] [place] [address], [place] [address] Dec, [facility] [address] [id number] [address] [place] [address] November, Primary insomnia F51.01 and Polyneuropathy G62.9 [facility] [address] [facility] [id number] [address] [place] [address] November, [facility] [address] [facility] [id number] [address] [place] [address] November, Abdominal pain, left lower q uadrant R10.32 [facility] [address] [place] [id number] [address] [place] [address] November, [facility] [address] [facility] [id number] [address] [place] [address] Oct, [facility] [address] [facility] [id number] [address] [place] [address] Oct, Abdominal pain, left lower q uadrant R10.32 ; H/O malignant carcinoid tumor of rectum Z85.040 and Neuropathy G62.9 [facility] [address] [place] [id number] [address] [place] [address] Oct, [facility] [address] [facility] [id number] [address] [place] [address] Sep, [facility] [address] [place] [id number] [place] [id number] Sep, [facility] [address] [place] [id number] [address] [place] [address] Sep, [facility] [address] [place] [id number] [address] [place] [address] Aug, [facility] [address] [facility] [id number] [address] [place] [address] Aug, [facility] [address] [place] [id number] [address] [place] [address] Aug, Abdominal pain, left lower q uadrant R10.32 ; Neuropathy G62.9 and Anxiety F41.9 [facility] [address] [place] [address] Jul, [facility] [address] [id number] [address] [place] [address] Jul, [facility] [address] [id number] [address] [place] [address] Jul, [facility] [address] [id number] [address] [place] [address] Jul, [facility] [address] [id number] [address] [place] [address] Jul, [facility] [address] [id number] [address] [place] [address] Jun, [facility] [address] [id number] [address] [place] [address] May, [facility] [address] [id number] [address] [place] [address] May, [facility] [address] [id number] [address] [place] [address] Apr, [facility] [address] [id number] [address] [place] [address] Apr, Muscle spasms of both lower extremities M62.838 and Cellulitis, unspecified cellulitis site L03.90 [facility] [address] [id number] [address] [place] [address] Apr, [facility] [address] [id number] [address] [place] [address] 23 Mar, 2016 Generalized abdominal pain R 10.84 [facility] [address] [id number] [address] [place] [address] 20 Mar, 2016 [facility] [address] [id number] [address] [place] [address] 14 Mar, 2016 [facility] [address] [id number] [address] [place] [address] 14 Mar, 2016 [facility] [address] [id number] [address] [place] [address] 13 Mar, 2016 [facility] [address] [id number] [address] [place] [address], [place] [address] 12 Mar, 2016 [facility] [address] [id number] [address] [place] [address], [place] [address] Mar, [facility] [address] [id number] [address] [place] [address], [place] [address] Mar, [facility] [address] [id number] [address] [place] [address] Feb, Other specified diseases of anus and rectum K62.89 [facility] [address] [id number] [address] [place] [address] Feb, [facility] [address] [id number] [address] [place] [address] Feb, Dizziness R42 [facility] [address] [id number] [address] [place] [address] Feb, [facility] [address] [id number] [address] [place] [address] Jan, Polyneuropathy G62.9 [facility] [address] [id number] [address] [place] [address] Jan, Other specified diseases of anus and rectum K62.89 [facility] [address] [id number] [address] [place] [address] Jan, [facility] [address] [id number] [address] [place] [address] Jan, [facility] [address] [id number] [address] [place] [address] Jan, [facility] [address] [id number] [address] [place] [address] Jan, Dizziness R42 [facility] [address] [id number] [address] [place] [address] Dec, [facility] [address] [id number] [address] [place] [address], [place] [address] Dec, [facility] [address] [id number] [address] [place] [address], [place] [address] Dec, [facility] [address] [id number] [address] [place] [address], [place] [address] Dec, Dizziness R42 [facility] [address] [id number] [address] [place] [address], [place] [address] November, [facility] [address] [id number] [address] [place] [address], [place] [address] Oct, [facility] [address] [id number] [address] [place] [address], [place] [address] Oct, [facility] [address] [id number] [address] [place] [address], [place] [address] Oct, [facility] [address] [id number] [address] [place] [address], [place] [address] Oct, [facility] [address] [id number] [address] [place] [address], [place] [address] Sep, [facility] [address] [id number] [address] [place] [address] Sep, Primary insomnia F51.01 [facility] [address] [id number] [address] [place] [address] Sep, Primary insomnia F51.01 [facility] [address] [id number] [address] [place] [address] Sep, [facility] [address] [id number] [address] [place] [address], [place] [address] Aug, [facility] [address] [id number] [address] [place] [address] Aug, [facility] [address] [id number] [address] [place] [address] Aug, Primary insomnia F51.01 ; Mo od disorder F39 ; Nausea and vomiting, unspecified intactability, vomiting of unspecified type R11.2 and Diarrhea R19.7 [facility] [address] [address] 15 Aug, 2015 [facility] [address] [address] Aug, Folliculitis L73.9 [facility] [address] [address] Aug, [facility] [address] [id number] Aug, [facility] [address] [address] Jul, Folliculitis L73.9 [facility] [address] [address] Jul, [facility] [address] [address] Jun, Folliculitis L73.9 [facility] [address] [address] Jun, [facility] [address] [address] May, Polyneuropathy G62.9 [facility] [address] [address] May, Other specified diseases of anus and rectum K62.89 [facility] [address] [address] May, [facility] [address] [address] May, Primary insomnia F51.01 [facility] [address] [address] May, [facility] [address] [id number] [address] [place] [address] May, [facility] [address] [id number] [address] [place] [address] Apr, Other specified diseases of anus and rectum K62.89 ; Chronic fatigue R53.82 ; Urinary tract infection, site not specified N39.0 and Enterococcus as the cause of diseases classified elsewhere B95.2 [facility] [address] [id number] [address] [place] [address] 16 Apr, 2015 [facility] [address] [id number] [address] [place] [id number] 15 Apr, 2015 [facility] [address] [id number] [address] [place] [address] Apr, 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 [facility] [address] [id number] [address] [place] [address] Apr, [facility] [address] [id number] [address] [place] [address] 26 Mar, 2015 [facility] [address] [id number] [address] [place] [address] 23 Mar, 2015 [facility] [address] [id number] [address] [place] [id number] 17 Mar, 2015 [facility] [address] [id number] [address] [place] [id number] 14 Mar, 2015 Unspecified inflammatory and toxic neuropathy 357.9 [facility] [address] [id number] [address] [place] [phone] 12 Mar, 2015 [facility] [address] [id number] [address] [place] [phone] 11 Mar, 2015 [facility] [address] [id number] [address] [place] [id number] 11 Mar, 2015 [facility] [address] [id number] [address] [place] [id number] Mar, [facility] [address] [id number] [address] [place] [id number] Feb, [facility] [address] [id number] [address] [place] [phone] Feb, [facility] [address] [id number] [address] [place] [phone] Feb, [facility] [address] [id number] [address] [place] [id number] Jan, [facility] [address] [id number] [address] [place] [id number] Jan, Nausea 787.02 and Neuropathy 355.9 [facility] [address] [id number] [address] [place] [phone] Jan, [facility] [address] [id number] [address] [place] [id number] Jan, [facility] [address] [id number] [address] [place] [id number] Jan, [facility] [address] [id number] [address] [place] [id number] Jan, Dental examination V72.2 [facility] [address] [id number] [address] [place] [phone] Jan, [facility] [address] [id number] [address] [place] [id number] Dec, [facility] [address] [id number] [address] [place] [phone] Dec, [facility] [address] [id number] [address] [place] [id number] Dec, Neuropathy 355.[address] [facility] [address] [id number] [address] [place] [address] November, [facility] [address] [id number] [address] [place] [address] November, [facility] [address] [id number] [address] [place] [address], [place] [address] November, [facility] [address] [id number] [address] [place] [address], [place] [address] Oct, [facility] [address] [id number] [address] [place] [address], [place] [address] Oct, [facility] [address] [id number] [address] [place] [address], [place] [address] Sep, [facility] [address] [id number] [address] [place] [address], [place] [address] Sep, [facility] [address] [id number] [address] [place] [address], [place] [address] Sep, [facility] [address] [id number] [address] [place] [address], [place] [address] Sep, [facility] [address] [id number] [address] [place] [address], [place] [address] Sep, [facility] [address] [id number] [address] [place] [address], [place] [address] Sep, [facility] [address] [id number] [address] [place] [address], [place] [address] Sep, [facility] [address] [id number] [address] [place] [address], [place] [address] Sep, [facility] [address] [id number] [address] [place] [address] Aug, [facility] [address] [id number] [address] [place] [address], [place] [address] Aug, [facility] [address] [id number] [address] [place] [address], [place] [address] Aug, [facility] [address] [id number] [address] [place] [address], [place] [address] Aug, [facility] [address] [id number] [address] [place] [address], [place] [address] Aug, 2014 [facility] [address] [id number] [address] [place] [address], [place] [address] Aug, 2014 [facility] [address] [id number] [address] [place] [address], [place] [address] Aug, 2014 [facility] [address] [id number] [address] [place] [address], [place] [address] Aug, 2014 [facility] [address] [id number] [address] [place] [address], [place] [address] Jul, [facility] [address] [id number] [address] [place] [address], [place] [address] Jul, [facility] [address] [id number] [address] [place] [address], [place] [address] Jun, [facility] [address] [id number] [address] [place] [address], [place] [address] Jun, [facility] [address] [id number] [address] [place] [address], [place] [address] Jun, [facility] [address] [id number] [address] [place] [address], [place] [address] Jun, [facility] [address] [id number] [address] [place] [address], [place] [address] Jun, [facility] [address] [id number] [address] [place] [address], [place] [address] Jun, [facility] [address] [id number] [address] [place] [address], [place] [address] Jun, [facility] [address] [id number] [address] [place] [address], [place] [address] Jun, [facility] [address] [id number] [address] [place] [address], [place] [address] Jun, [facility] [address] [id number] [address] [place] [address], [place] [address] Jun, [facility] [address] [id number] [address] [place] [address], [place] [address] Jun, [facility] [address] [id number] [address] [place] [address], [place] [address] May, [facility] [address] [id number] [address] [place] [address], [place] [address] May, [facility] [address] [id number] [address] [place] [address], [place] [address] May, [facility] [address] [id number] [address] [place] [address], [place] [address] May, [facility] [address] [id number] [address] [place] [address], [place] [address] May, [facility] [address] [id number] [address] [place] [address], [place] [address] May, [facility] [address] [id number] [address] [place] [address], [place] [address] May, [facility] [address] [id number] [address] [place] [address], [place] [address] May, [facility] [address] [id number] [address] [place] [address] May, [facility] [address] [id number] [address] [place] [address] Apr, [facility] [address] [id number] [address] [place] [address] Apr, [facility] [address] [id number] [address] [place] [address], [place] [address] Apr, [facility] [address] [id number] [address] [place] [address], [place] [address] Apr, [facility] [address] [id number] [address] [place] [address] Apr, [facility] [address] [id number] [address] [place] [address] Mar, [facility] [address] [id number] [facility] [place] [address] Mar, [facility] [address] [id number] [address] [place] [address], [place] [address] Feb, [facility] [address] [id number] [address] [place] [address], [place] [address] Feb, [facility] [address] [id number] [address] [place] [address], [place] [address] Feb, [facility] [address] [id number] [address] [place] [address], [place] [address] Feb, [facility] [address] [id number] [address] [place] [address], [place] [address] Feb, [facility] [address] [id number] [address] [place] [address], [place] [address] Feb, [facility] [address] [id number] [address] [place] [address], [place] [address] Jan, [facility] [address] [id number] [address] [place] [address], [place] [address] Jan, [facility] [address] [id number] [address] [place] [address], [place] [address] Jan, [facility] [address] [id number] [address] [place] [address], [place] [address] Jan, [facility] [address] [id number] [address] [place] [address], [place] [address] Jan, [facility] [address] [id number] [address] [place] [address], [place] [address] Jan, [facility] [address] [id number] [address] [place] [address], [place] [address] Jan, [facility] [address] [id number] [address] [place] [address], [place] [address] Jan, [facility] [address] [id number] [facility] [place] [address] Jan, [facility] [address] [id number] [facility] [place] [address] Jan, [facility] [address] [id number] [facility] [place] [address] Jan, [facility] [address] [id number] [facility] [place] [address] Dec, [facility] [address] [id number] [facility] [place] [address] Dec, [facility] [address] [id number] [facility] [place] [address] Dec, [facility] [address] [id number] [address] [place] [address], [place] [address] Dec, [facility] [address] [id number] [address] [place] [address], [place] [address] Dec, [facility] [address] [id number] [address] [place] [address], [place] [address] Dec, [facility] [address] [id number] [address] [place] [address], [place] [address] November, [facility] [address] [id number] [address] [place] [address], [place] [address] November, [facility] [address] [id number] [address] [place] [address], [place] [address] November, [facility] [address] [id number] [address] [place] [address], [place] [address] November, [facility] [address] [id number] [address] [place] [address], [place] [address] November, [facility] [address] [id number] [address] [place] [address], [place] [address] November, [facility] [address] [id number] [address] [place] [address], [place] [address] Oct, [facility] [address] [id number] [facility] [place] [address] 30 Oct, 2013 [facility] [address] [id number] [address] [place] [address], [place] [address] Oct, [facility] [address] [id number] [facility] [place] [address] Oct, [facility] [address] [id number] [address] [place] [address], [place] [address] Sep, [facility] [address] [id number] [facility] [place] [address] Sep, [facility] [address] [id number] [address] [place] [address], [place] [address] Sep, [facility] [address] [id number] [address] [place] [address], [place] [address] Sep, [facility] [address] [id number] [address] [place] [address], [place] [address] Sep, [facility] [address] [id number] [address] [place] [address], [place] [address] Aug, [facility] [address] [id number] [address] [place] [address], [place] [address] Aug, [facility] [address] [id number] [address] [place] [address], [place] [address] Aug, [facility] [address] [id number] [address] [place] [address], [place] [address] Aug, [facility] [address] [id number] [address] [place] [address], [place] [address] 14 Aug, 2013 [facility] [address] [place] [id number] May, [facility] [address] [id number] [address] [place] [address], [place] [address] May, [facility] [address] [id number] [address] [place] [address], [place] [address] 08 May, 2013 [facility] [address] [id number] [address] [place] [address], [place] [address] May, [facility] [address] [id number] [address] [place] [address], [place] [address] May, [facility] [address] [id number] [address] [place] [address], [place] [address] Apr, [facility] [address] [id number] [address] [place] [address], [place] [address] Apr, [facility] [address] [id number] [address] [place] [address], [place] [address] Apr, [facility] [address] [id number] [address] [place] [address], [place] [address] Apr, [facility] [address] [id number] [address] [place] [address], [place] [address] Apr, [facility] [address] [id number] [address] [place] [address], [place] [address] Apr, [facility] [address] [id number] [address] [place] [address], [place] [address] Apr, [facility] [address] [id number] [address] [place] [address], [place] [address] 28 Mar, 2013 [facility] [address] [id number] [address] [place] [address], [place] [address] 25 Mar, 2012 [facility] [address] [id number] [address] [place] [address], [place] [address] 24 Sep, 2012 [facility] [address] [id number] [address] [place] [address], [place] [address] 16 Sep, 2012 [facility] [address] [id number] [address] [place] [address], [place] [address] 12 Sep, 2012 [facility] [address] [id number] [address] [place] [address], [place] [address] 06 Mar, 2013 [facility] [address] [id number] [address] [place] [address], [place] [address] Feb, [facility] [address] [id number] [address] [place] [address], [place] [address] Feb, [facility] [address] [id number] [address] [place] [address], [place] [address] Feb, [facility] [address] [id number] [address] [place] [address], [place] [address] Feb, [facility] [address] [id number] [address] [place] [address], [place] [address] Feb, [facility] [address] [id number] [address] [place] [address], [place] [address] Feb, [facility] [address] [id number] [address] [place] [address], [place] [address] Jan, [facility] [address] [id number] [address] [place] [address], [place] [address] Dec, [facility] [address] [id number] [address] [place] [address], [place] [address] Dec, [facility] [address] [id number] [address] [place] [address], [place] [address] Dec, [facility] [address] [id number] [address] [place] [address], [place] [address] Dec, [facility] [address] [id number] [address] [place] [address], [place] [address] Dec, [facility] [address] [id number] [address] [place] [address], [place] [address] 18 Dec, 2012 [facility] [address] [id number] [address] [place] [address], [place] [address] 17 Dec, 2012 [facility] [address] [id number] [address] [place] [address], [place] [address] 12 Dec, 2012 [facility] [address] [id number] [address] [address] Dec, [facility] [address] [id number] [address] [place] [address], [place] [address] November, [facility] [address] [id number] [address] [place] [address] November, [facility] [address] [id number] [address] [place] [address] Oct, [facility] [address] [id number] [address] [place] [address] Sep, [facility] [address] [id number] [address] [place] [address], [place] [address] Sep, [facility] [address] [id number] [address] [place] [address] Sep, [facility] [address] [id number] [address] [place] [address] Sep, [facility] [address] [id number] [address] [place] [address] Aug, [facility] [address] [id number] [address] [place] [address] Aug, [facility] [address] [id number] [address] [place] [address] Jul, [facility] [address] [id number] [address] [place] [address] Jul, [facility] [address] [id number] [address] [place] [address] Jul, [facility] [address] [id number] [address] [place] [address] Sep, [facility] [address] [id number] [address] [place] [address] 17 Sep, 2011 [facility] [address] [id number] [address] [place] [address] 10 Sep, 2011 IMMUNIZATIONS No Known Immunizations SOCIAL HISTORY Never Assessed REASON FOR VISIT [facility] PLAN OF CARE [...] bowel obstruction, Dehydration -VCH 01/01/17 Hospitalization History [facility]- UTI/Sepsis 01/18/2018 Hospitalization History [facility] - infection 4 days 05/2018
--- OUTSIDE RECORDS SUMMARY | 2020-01-14 23:13 | XMS REPORT ---
Author Author Melvin Hwang Doctor Organization [facility] Address Unknown Phone Unavailable Care Team Providers Care Steelscope Operator Name Role Phone Migration, Doctor Unavailable Unavailable PROBLEMS Type Condition ICD9-CM Code [id number] Code Onset Dates Condition S tatus SNOMED Code Problem Primary insomnia F51.01 Active 193 932409 Problem Chronic fatigue, unspecified R53.82 A ctive 736838971 Problem Incontinence of feces, unspecified fecal incontinence type R15.9 Active 89378308 Problem Abdominal pain, left lower quadrant R10.32 Active 903981226 Problem Hypertension, benign I10 Active 34809696 Problem Mood disorder F39 Active 285696 05 Problem Attention to urostomy Z43.6 Active 283535196 Problem 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 347020155 Problem Chronic pain syndrome G89.4 Active 132023818 Problem Hydronephrosis with ureteral stricture, not else where classified N13.1 Active 87519897 Problem Neuropathy G62.9 Active 281768972 Problem Anxiety F41.9 Active 71694321 Problem Polyneuropathy G62.9 Active 35499 000 Problem Malignant neoplasm of colon, unspecified part of colon C18.9 Active 090136527 ALLERGIES No Information ENCOUNTERS Encounter Location Date Diagnosis [place] [address] [facility] [id number] [address] [place] [address] Oct, [facility] [address] [facility] [id number] [address] [place] [address] Sep, Neuropathy G62.9 [facility] [address] [facility] [id number] [address] [place] [address] Sep, [place] [id number] [facility] [id number] [address] [place] [address] Sep, H/O malignant carcinoid tumo r of rectum Z85.040 and Primary insomnia F51.01 [place] [address] [id number] [address] [place] [address] Aug, [facility] [address] [id number] [address] [place] [address] Aug, Neuropathy G62.9 [facility] [address] [id number] [address] [place] [address] Aug, [facility] [address] [id number] [address] [place] [address] Jul, Non-recurrent acute suppurat francine otitis media of left ear without spontaneous rupture of tympanic membrane H66.002 [facility] [address] [id number] [address] [place] [address] Jul, Neuropathy G62.9 [facility] [address] [id number] [address] [place] [address] Jun, [facility] [address] [id number] [address] [place] [address] Jun, [facility] [address] [id number] [address] [place] [address] Jun, Neuropathy G62.9 [facility] [address] [id number] [address] [place] [address] Jun, [facility] [address] [id number] [address] [place] [address] Jun, [facility] [address] [id number] [address] [place] [address] Jun, Lumbar neuritis M54.16 [facility] [address] [id number] [address] [place] [address] May, Neuropathy G62.9 [facility] [address] [facility] [id number] [address] [place] [address] May, [facility] [address] [id number] [address] [place] [address] May, Neuropathy G62.9 and Hyperte nsion, benign I10 [facility] [address] [facility] [id number] [address] [place] [phone] 09 Apr, 2018 Polyneuropathy G62.9 and Hyp ertension, benign I10 [facility] [address] [place] [id number] [address] [place] [phone] 17 Mar, 2018 Chronic pain syndrome G89.4 and Hypertension, benign I10 [facility] [address] [place] [id number] [place] [phone] 11 Mar, 2018 Polyneuropathy G62.9 and Hyp ertension, benign I10 [facility] [address] [place] [id number] [address] [place] [address] Feb, [facility] [address] [place] [id number] [place] [address] Feb, Hypertension, benign I10 [facility] [address] [place] [id number] [place] [address] Feb, Hypertension, benign I10 ; P olyneuropathy G62.9 and Primary insomnia F51.01 [facility] [address] [place] [id number] [address] [place] [address] Jan, Hypertension, benign I10 and Polyneuropathy G62.9 [facility] [address] [place] [id number] [address] [place] [phone] Jan, Hypertension, benign I10 and Neuropathy G62.9 [facility] [address] [place] [id number] [address] [place] [address] Jan, [facility] [address] [place] [id number] [address] [place] [address] Dec, Polyneuropathy G62.9 [facility] [address] [place] [id number] [address] [place] [address] Dec, Mood disorder F39 [facility] [address] [place] [id number] [address] [place] [address] November, Polyneuropathy G62.9 [facility] [address] [facility] [id number] [address] [place] [address] November, Medicare annual wellness vis it, initial Z00.00 [facility] [address] [facility] [id number] [address] [place] [address] November, Mood disorder F39 [facility] [address] [facility] [id number] [address] [place] [address] Oct, Polyneuropathy G62.9 [facility] [address] [facility] [id number] [address] [place] [address] Oct, [facility] [address] [facility] [id number] [address] [place] [address] Oct, [facility] [address] [facility] [id number] [address] [place] [address] Oct, Mood disorder F39 ; Attentio n to urostomy Z43.6 ; Chronic pain syndrome G89.4 and Polyneuropathy G62.9 [facility] [address] [facility] [id number] [address] [place] [address] Sep, Polyneuropathy G62.9 [facility] [address] [facility] [id number] [address] [place] [address] Sep, [facility] [address] [facility] [id number] [address] [place] [address] Sep, Polyneuropathy G62.9 [facility] [address] [facility] [id number] [address] [place] [address] Aug, Polyneuropathy G62.9 [facility] [address] [facility] [id number] [address] [place] [address] Aug, Malignant neoplasm of colon, unspecified part of colon C18.9 and Polyneuropathy G62.9 [facility] [address] [facility] [id number] [address] [place] [address] Aug, Neuropathy G62.9 and Polyneu ropathy G62.9 [facility] [address] [id number] [address] [place] [address] Jul, Encounter for drug screening Z02.83 [facility] [address] [facility] [id number] [address] [place] [address] Jul, Polyneuropathy G62.9 [facility] [address] [facility] [id number] [address] [place] [address] Jul, [facility] [address] [facility] [id number] [address] [place] [address] Jul, Neuropathy G62.9 and Anxiety F41.9 [facility] [address] [facility] [id number] [address] [place] [address] Jul, [facility] [address] [facility] [id number] [address] [place] [address] Jul, [facility] [address] [facility] [id number] [address] [place] [address] Jul, [facility] [address] [facility] [id number] [address] [place] [address] Jul, Polyneuropathy G62.9 [facility] [address] [facility] [id number] [address] [place] [address] Jul, [facility] [address] [facility] [id number] [address] [place] [address] Jun, [facility] [address] [facility] [id number] [address] [place] [address] Jun, [facility] [address] [facility] [id number] [address] [place] [address] Jun, [facility] [address] [id number] [place] [address] 07 Jun, 2017 Encounter for dental examina tion Z01.20 [facility] [address] [facility] [id number] [address] [place] [address] Jun, Polyneuropathy G62.9 and Anx iety F41.9 [facility] [address] [facility] [id number] [address] [place] [address] Jun, [facility] [address] [place] [id number] [address] May, Dental examination Z01.20 [facility] [address] [place] [id number] [address] [place] [address] May, Polyneuropathy G62.9 [facility] [address] [place] [id number] [address] [place] [address] Apr, Polyneuropathy G62.9 [facility] [address] [place] [id number] [address] [place] [address] Apr, Polyneuropathy G62.9 [facility] [address] [place] [id number] [address] [place] [address] Apr, Hypertension, benign I10 ; P olyneuropathy G62.9 and Anxiety F41.9 [facility] [address] [place] [id number] [address] [place] [address] Apr, Primary insomnia F51.01 and Polyneuropathy G62.9 [facility] [address] [place] [id number] [address] [place] [address] Apr, Primary insomnia F51.01 and Polyneuropathy G62.9 [facility] [id number] [place] [address] Mar, Primary insomnia F51.01 [facility] [address] [facility] [id number] [address] [place] [address] Mar, [facility] [address] [place] [id number] [address] [place] [address] Mar, Polyneuropathy G62.9 [facility] [address] [facility] [id number] [address] [place] [address] Feb, Primary insomnia F51.01 [facility] [id number] [place] [address] Feb, [facility] [address] [id number] [address] [place] [address] Feb, [facility] [address] [id number] [address] [place] [address] Feb, Polyneuropathy G62.9 [facility] [address] [id number] [address] [place] [address], [place] [address] Feb, Primary insomnia F51.01 [facility] [address] [id number] [address] [place] [address], [place] [address] Jan, [facility] [address] [id number] [address] [place] [address] Jan, [facility] [address] [facility] [id number] [address] [place] [address], [place] [address] Dec, [facility] [address] [id number] [address] [place] [address] Dec, Primary insomnia F51.01 [facility] [address] [id number] [address] [place] [address], [place] [address] Dec, Primary insomnia F51.01 [facility] [address] [id number] [address] [place] [address] Dec, [facility] [address] [facility] [id number] [address] [place] [address] Dec, [facility] [address] [facility] [id number] [address] [place] [address] Dec, [facility] [address] [id number] [address] [place] [address] Dec, [facility] [address] [facility] [id number] [address] [place] [address] November, Primary insomnia F51.01 and Polyneuropathy G62.9 [facility] [address] [id number] [address] [place] [address] November, [facility] [address] [id number] [address] [place] [address] November, Abdominal pain, left lower q uadrant R10.32 [facility] [address] [id number] [address] [place] [address] November, [facility] [address] [id number] [address] [place] [address] Oct, [facility] [address] [id number] [address] [place] [address] Oct, Abdominal pain, left lower q uadrant R10.32 ; H/O malignant carcinoid tumor of rectum Z85.040 and Neuropathy G62.9 [facility] [address] [id number] [address] [place] [address] Oct, [facility] [address] [facility] [id number] [address] [place] [address] Sep, [facility] [id number] [id number] Sep, [facility] [address] [id number] [address] [place] [address] Sep, [facility] [address] [id number] [address] [place] [address] Aug, [facility] [address] [facility] [id number] [address] [place] [address] Aug, [facility] [address] [id number] [address] [place] [address] Aug, Abdominal pain, left lower q uadrant R10.32 ; Neuropathy G62.9 and Anxiety F41.9 [facility] [address] [place] [address] Jul, [facility] [address] [facility] [id number] [address] [place] [address] Jul, [facility] [address] [id number] [address] [place] [address] Jul, [facility] [address] [id number] [address] [place] [address] Jul, [facility] [address] [id number] [address] [place] [address] Jul, [facility] [address] [id number] [address] [place] [address] Jun, [facility] [address] [id number] [address] [place] [address] May, [facility] [address] [id number] [address] [place] [address] May, [facility] [address] [id number] [address] [place] [address] Apr, [facility] [address] [id number] [address] [place] [address] Apr, Muscle spasms of both lower extremities M62.838 and Cellulitis, unspecified cellulitis site L03.90 [facility] [address] [id number] [address] [place] [address] Apr, [facility] [address] [id number] [address] [place] [address] 23 Mar, 2016 Generalized abdominal pain R 10.84 [facility] [address] [id number] [address] [place] [address] 20 Mar, 2016 [facility] [address] [id number] [address] [place] [address] 14 Mar, 2016 [facility] [address] [id number] [address] [place] [address] 14 Mar, 2016 [facility] [address] [id number] [address] [place] [address] 13 Mar, 2016 [facility] [address] [id number] [address] [place] [address] Mar, [facility] [address] [id number] [address] [place] [address] Mar, [facility] [address] [id number] [address] [place] [address] Mar, [facility] [address] [id number] [address] [place] [address] Feb, Other specified diseases of anus and rectum K62.89 [facility] [address] [id number] [address] [place] [address] Feb, [facility] [address] [id number] [address] [place] [address] Feb, Dizziness R42 [facility] [address] [id number] [address] [place] [address] Feb, [facility] [address] [id number] [address] [place] [address] Jan, Polyneuropathy G62.9 [facility] [address] [id number] [address] [place] [address] Jan, Other specified diseases of anus and rectum K62.89 [facility] [address] [id number] [address] [place] [address] Jan, [facility] [address] [id number] [address] [place] [address] Jan, [facility] [address] [id number] [address] [place] [address] Jan, [facility] [address] [id number] [address] [place] [address] Jan, Dizziness R42 [facility] [address] [id number] [address] [place] [address] Dec, [facility] [address] [id number] [address] [place] [address] Dec, [facility] [address] [id number] [address] [place] [address] Dec, [facility] [address] [id number] [address] [place] [address] Dec, Dizziness R42 [facility] [address] [facility] [id number] [address] [place] [address] November, [facility] [address] [facility] [id number] [address] [place] [address] Oct, [facility] [address] [id number] [address] [place] [address] Oct, [facility] [address] [facility] [id number] [address] [place] [address] Oct, [facility] [address] [facility] [id number] [address] [place] [address] Oct, [facility] [address] [facility] [id number] [address] [place] [phone] Sep, [facility] [address] [facility] [id number] [address] [place] [address] Sep, Primary insomnia F51.01 [facility] [address] [place] [id number] [address] [place] [address] Sep, Primary insomnia F51.01 [facility] [address] [facility] [id number] [address] [place] [address] Sep, [facility] [address] [facility] [id number] [address] [place] [address] Aug, [facility] [address] [facility] [id number] [address] [place] [address] Aug, [facility] [address] [facility] [id number] [address] [place] [address] Aug, Primary insomnia F51.01 ; Mo od disorder F39 ; Nausea and vomiting, unspecified intactability, vomiting of unspecified type R11.2 and Diarrhea R19.7 [facility] [address] [id number] [address] [place] [phone] 15 Aug, 2015 [facility] [address] [facility] [id number] [address] [place] [phone] 05 Aug, 2015 Folliculitis L73.9 [facility] [address] [facility] [id number] [address] [place] [phone] Aug, [facility] [address] [facility] [id number] [address] [place] [phone] Aug, [facility] [address] [facility] [id number] [address] [place] [phone] Jul, Folliculitis L73.9 [facility] [address] [facility] [id number] [address] [place] [phone] Jul, [facility] [address] [facility] [id number] [address] [place] [phone] Jun, Folliculitis L73.9 [facility] [address] [facility] [id number] [address] [place] [phone] Jun, [facility] [address] [facility] [id number] [address] [place] [phone] May, Polyneuropathy G62.9 [facility] [address] [facility] [id number] [address] [place] [phone] May, Other specified diseases of anus and rectum K62.89 [facility] [address] [facility] [id number] [address] [place] [phone] May, [facility] [address] [facility] [id number] [address] [place] [phone] May, Primary insomnia F51.01 [facility] [address] [facility] [id number] [address] [place] [phone] May, [facility] [address] [facility] [id number] [address] [place] [phone] May, [facility] [address] [id number] [address] [place] [phone] Apr, Other specified diseases of anus and rectum K62.89 ; Chronic fatigue R53.82 ; Urinary tract infection, site not specified N39.0 and Enterococcus as the cause of diseases classified elsewhere B95.2 [facility] [address] [id number] [address] [place] [phone] 16 Apr, 2015 [facility] [address] [id number] [address] [place] [phone] 15 Apr, 2015 [facility] [address] [id number] [address] [place] [phone] 14 Apr, 2015 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.9 [facility] [address] [id number] [address] [place] [phone] 05 Apr, 2015 [facility] [address] [id number] [address] [place] [phone] 26 Mar, 2015 [facility] [address] [id number] [address] [place] [phone] 23 Mar, 2015 [facility] [address] [id number] [address] [place] [id number] 17 Mar, 2015 [facility] [address] [id number] [place] [id number] 14 Mar, 2015 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.9 [facility] [address] [id number] [address] [place] [id number] 12 Mar, 2015 [facility] [address] [id number] [address] [place] [id number] 11 Mar, 2015 [facility] [address] [id number] [address] [place] [id number] 11 Mar, 2015 [facility] [address] [id number] [address] [place] [id number] 10 Mar, 2015 [facility] [address] [id number] [address] [place] [id number] Feb, [facility] [address] [id number] [address] [place] [id number] Feb, [facility] [address] [id number] [address] [place] [id number] Feb, [facility] [address] [id number] [address] [place] [address] Jan, [facility] [address] [id number] [address] [place] [phone] Jan, Nausea 787.02 and Neuropathy 355.9 [facility] [address] [id number] [address] [place] [id number] Jan, [facility] [address] [id number] [address] [place] [phone] Jan, [facility] [address] [id number] [address] [place] [phone] Jan, [facility] [address] [id number] [address] [place] [id number] Jan, Dental examination V72.2 [facility] [address] [id number] [address] [place] [id number] Jan, [facility] [address] [id number] [address] [place] [id number] Dec, [facility] [address] [id number] [address] [place] [phone] Dec, [facility] [address] [id number] [address] [place] [id number] Dec, Neuropathy 355.9 [facility] [address] [id number] [address] [place] [phone] November, [facility] [address] [id number] [address] [place] [id number] November, [facility] [address] [id number] [address] [place] [address] November, [facility] [address] [id number] [address] [place] [address], [place] [address] 14 Oct, 2014 [facility] [address] [id number] [address] [place] [address], [place] [address] Oct, [facility] [address] [id number] [address] [place] [address], [place] [address] Sep, [facility] [address] [id number] [address] [place] [address], [place] [address] Sep, [facility] [address] [id number] [address] [place] [address], [place] [address] Sep, [facility] [address] [id number] [address] [place] [address], [place] [address] Sep, [facility] [address] [id number] [address] [place] [address], [place] [address] Sep, [facility] [address] [id number] [address] [place] [address], [place] [address] Sep, [facility] [address] [id number] [address] [place] [address], [place] [address] Sep, [facility] [address] [id number] [address] [place] [address], [place] [address] Sep, [facility] [address] [id number] [address] [place] [address], [place] [address] Aug, [facility] [address] [id number] [address] [place] [address], [place] [address] Aug, [facility] [address] [id number] [address] [place] [address], [place] [address] Aug, [facility] [address] [id number] [address] [place] [address], [place] [address] Aug, [facility] [address] [id number] [address] [place] [address], [place] [address] Aug, [facility] [address] [id number] [address] [place] [phone] Aug, 2014 [facility] [address] [id number] [address] [place] [address], [place] [address] Aug, [facility] [address] [id number] [address] [place] [address], [place] [address] Aug, [facility] [address] [id number] [address] [place] [address], [place] [address] Jul, [facility] [address] [id number] [address] [place] [address], [place] [address] Jul, [facility] [address] [id number] [address] [place] [address], [place] [address] Jun, [facility] [address] [id number] [address] [place] [address], [place] [address] Jun, [facility] [address] [id number] [address] [place] [address], [place] [address] Jun, [facility] [address] [id number] [address] [place] [address], [place] [address] Jun, [facility] [address] [id number] [address] [place] [address], [place] [address] Jun, [facility] [address] [id number] [address] [place] [address], [place] [address] Jun, [facility] [address] [id number] [address] [place] [address], [place] [address] Jun, [facility] [address] [id number] [address] [place] [address], [place] [address] Jun, [facility] [address] [id number] [address] [place] [address], [place] [address] Jun, [facility] [address] [id number] [address] [place] [address], [place] [address] Jun, [facility] [address] [id number] [address] [place] [address], [place] [address] Jun, [facility] [address] [id number] [address] [place] [address], [place] [address] May, [facility] [address] [id number] [address] [place] [address], [place] [address] May, [facility] [address] [id number] [address] [place] [address], [place] [address] May, [facility] [address] [id number] [address] [place] [address], [place] [address] May, [facility] [address] [id number] [address] [place] [address], [place] [address] May, [facility] [address] [id number] [address] [place] [address], [place] [address] May, [facility] [address] [id number] [address] [place] [address], [place] [address] May, [facility] [address] [id number] [address] [place] [address], [place] [address] May, [facility] [address] [id number] [address] [place] [address], [place] [address] May, [facility] [address] [id number] [address] [place] [address], [place] [address] Apr, [facility] [address] [id number] [address] [place] [address], [place] [address] Apr, [facility] [address] [id number] [address] [place] [address], [place] [address] Apr, [facility] [address] [id number] [address] [place] [address], [place] [address] Apr, [facility] [address] [id number] [address] [place] [address], [place] [address] 15 Apr, 2014 [facility] [address] [id number] [address] [place] [address], [place] [address] 22 Mar, 2014 [facility] [address] [id number] [address] [place] [address], [place] [address] Mar, [facility] [address] [id number] [facility] [place] [address] Feb, [facility] [address] [id number] [address] [place] [address], [place] [address] Feb, [facility] [address] [id number] [address] [place] [address], [place] [address] Feb, [facility] [address] [id number] [address] [place] [address], [place] [address] Feb, [facility] [address] [id number] [address] [place] [address], [place] [address] Feb, [facility] [address] [id number] [address] [place] [address], [place] [address] Feb, [facility] [address] [id number] [address] [place] [address], [place] [address] Jan, [facility] [address] [id number] [address] [place] [address], [place] [address] Jan, [facility] [address] [id number] [address] [place] [address], [place] [address] Jan, [facility] [address] [id number] [address] [place] [address], [place] [address] Jan, [facility] [address] [id number] [address] [place] [address], [place] [address] Jan, [facility] [address] [id number] [address] [place] [address], [place] [address] Jan, [facility] [address] [id number] [address] [place] [address], [place] [address] Jan, [facility] [address] [id number] [address] [place] [address], [place] [address] Jan, [facility] [address] [id number] [address] [place] [address], [place] [address] Jan, [facility] [address] [id number] [facility] [address] Jan, [facility] [address] [id number] [facility] [place] [address] Jan, [facility] [address] [id number] [facility] [address] Dec, [facility] [address] [id number] [address] [place] [address], [place] [address] Dec, [facility] [address] [id number] [address] [place] [address], [place] [address] Dec, [facility] [address] [id number] [address] [place] [address], [place] [address] Dec, [facility] [address] [id number] [address] [place] [address], [place] [address] Dec, [facility] [address] [id number] [address] [place] [address], [place] [address] Dec, [facility] [address] [id number] [address] [place] [address], [place] [address] November, [facility] [address] [id number] [address] [place] [address], [place] [address] November, [facility] [address] [id number] [address] [place] [address], [place] [address] November, [facility] [address] [id number] [address] [place] [address], [place] [address] November, [facility] [address] [id number] [address] [place] [address], [place] [address] November, [facility] [address] [id number] [address] [place] [address], [place] [address] November, [facility] [address] [id number] [address] [place] [address], [place] [address] Oct, [facility] [address] [id number] [address] [place] [address], [place] [address] Oct, [facility] [address] [id number] [address] [place] [address], [place] [address] Oct, [facility] [address] [id number] [address] [place] [address], [place] [address] Oct, [facility] [address] [id number] [address] [place] [address], [place] [address] Sep, [facility] [address] [id number] [address] [place] [address], [place] [address] Sep, [facility] [address] [id number] [address] [place] [address], [place] [address] Sep, [facility] [address] [id number] [address] [place] [address], [place] [address] Sep, [facility] [address] [id number] [address] [place] [address], [place] [address] Sep, [facility] [address] [id number] [address] [place] [address], [place] [address] Aug, [facility] [address] [id number] [address] [place] [address], [place] [address] Aug, [facility] [address] [id number] [address] [place] [address], [place] [address] Aug, [facility] [address] [id number] [address] [place] [address], [place] [address] Aug, [facility] [address] [id number] [address] [place] [address], [place] [address] Aug, [facility] [address] [place], [place] [id number] May, [facility] [address] [id number] [address] [place] [address], [place] [address] May, [facility] [address] [id number] [address] [place] [address] May, [facility] [address] [id number] [address] [place] [address] May, [facility] [address] [id number] [address] [place] [address], [place] [address] May, [facility] [address] [id number] [address] [place] [address], [place] [address] Apr, [facility] [address] [id number] [address] [place] [address], [place] [address] Apr, [facility] [address] [id number] [address] [place] [address], [place] [address] Apr, [facility] [address] [id number] [address] [place] [address], [place] [address] Apr, [facility] [address] [id number] [address] [place] [address], [place] [address] Apr, [facility] [address] [id number] [address] [place] [address], [place] [address] Apr, [facility] [address] [id number] [address] [place] [address], [place] [address] Apr, [facility] [address] [id number] [address] [place] [address], [place] [address] 28 Mar, 2013 [facility] [address] [id number] [address] [place] [address], [place] [address] Mar, [facility] [address] [id number] [address] [place] [address], [place] [address] 24 Mar, 2013 [facility] [address] [id number] [address] [place] [address], [place] [address] 16 Mar, 2013 [facility] [address] [id number] [address] [place] [address], [place] [address] 12 Mar, 2013 [facility] [address] [id number] [address] [place] [address], [place] [address] 06 Mar, 2013 [facility] [address] [id number] [address] [place] [address], [place] [address] Feb, [facility] [address] [id number] [facility] [address] Feb, [facility] [address] [id number] [address] [place] [address], [place] [address] Feb, [facility] [address] [id number] [facility] [place] [address] Feb, [facility] [address] [id number] [address] [place] [address], [place] [address] Feb, [facility] [address] [id number] [address] [place] [address], [place] [address] Feb, [facility] [address] [id number] [address] [place] [address], [place] [address] Jan, [facility] [address] [id number] [address] [place] [address], [place] [address] Dec, [facility] [address] [id number] [address] [place] [address], [place] [address] Dec, [facility] [address] [id number] [address] [place] [address], [place] [address] Dec, [facility] [address] [id number] [address] [place] [address], [place] [address] Dec, [facility] [address] [id number] [address] [place] [address], [place] [address] Dec, [facility] [address] [id number] [address] [place] [address], [place] [address] Dec, [facility] [address] [id number] [address] [place] [address], [place] [address] Dec, [facility] [address] [id number] [address] [place] [address], [place] [address] Dec, [facility] [address] [id number] [address] [place] [address], [place] [address] Dec, [facility] [address] [id number] [address] [place] [address], [place] [address] November, [facility] [address] [id number] [address] [place] [address] November, [facility] [address] [id number] [address] [place] [address] Oct, [facility] [address] [id number] [address] [place] [address] Sep, [facility] [address] [id number] [address] [place] [address] Sep, [facility] [address] [id number] [address] [place] [address] Sep, [facility] [address] [id number] [address] [place] [address] Sep, [facility] [address] [id number] [address] [place] [address] Aug, [facility] [address] [id number] [address] [place] [address] Aug, [facility] [address] [id number] [address] [place] [address] Jul, [facility] [address] [id number] [address] [place] [address] Jul, [facility] [address] [id number] [address] [place] [address] Jul, [facility] [address] [id number] [address] [place] [address] Sep, [facility] [address] [id number] [address] [place] [id number] Sep, [facility] [address] [id number] [address] [place] [address] 10 Sep, 2011 IMMUNIZATIONS No Known Immunizations SOCIAL HISTORY Never Assessed REASON FOR VISIT EMR-[facility] PLAN OF CARE VITAL SIGNS MEDICATIONS Unknown [facility] Hospitalization History [facility] - infection 4 days 05/2018
--- OUTSIDE RECORDS SUMMARY | 2020-01-14 23:13 | XMS REPORT ---
Author Author Melvin BENTLEY Organization [facility] Address [address] [place] [address] Care Team Providers Care Parts Driver Name Role Phone LINDA BENTLEY Unavailable PROBLEMS Type Condition ICD9-CM Code [id number] Code Onset Dates Condition S tatus SNOMED Code Problem Primary insomnia F51.01 Active 193 389256 Problem Chronic fatigue, unspecified R53.82 A ctive 176480861 Problem Incontinence of feces, unspecified fecal incontinence type R15.9 Active 83680538 Problem Abdominal pain, left lower quadrant R10.32 Active 422897965 Problem Hypertension, benign I10 Active 77516191 Problem Mood disorder F39 Active 671568 05 Problem Attention to urostomy Z43.6 Active 472702171 Problem 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 544079389 Problem Chronic pain syndrome G89.4 Active 124077311 Problem Hydronephrosis with ureteral stricture, not else where classified N13.1 Active 53680882 Problem Neuropathy G62.9 Active 575866508 Problem Anxiety F41.9 Active 50065452 Problem Polyneuropathy G62.9 Active 02099 000 Problem Malignant neoplasm of colon, unspecified part of colon C18.9 Active [id number] ALLERGIES No Information ENCOUNTERS Encounter Location Date Diagnosis [facility] [address] [facility] [id number] [address] [place] [id number] Oct, [facility] [address] [facility] [id number] [address] [place] [id number] Sep, Neuropathy G62.9 [facility] [address] [facility] [id number] [address] [place] [id number] Sep, [facility] [address] [facility] [id number] [address] [place] [id number] Sep, H/O malignant carcinoid tumo r of rectum Z85.040 and Primary insomnia F51.01 [facility] [address] [id number] [address] [place] [id number] Aug, [facility] [address] [id number] [address] [place] [id number] Aug, Neuropathy G62.9 [facility] [address] [id number] [address] [place] [id number] Aug, [facility] [address] [id number] [address] [place] [id number] Jul, Non-recurrent acute suppurat francine otitis media of left ear without spontaneous rupture of tympanic membrane H66.002 [facility] [address] [id number] [address] [place] [id number] Jul, Neuropathy G62.9 [facility] [address] [id number] [address] [place] [id number] Jun, [facility] [address] [id number] [address] [place] [id number] Jun, [facility] [address] [id number] [address] [place] [id number] Jun, Neuropathy G62.9 [facility] [address] [id number] [address] [place] [id number] Jun, [facility] [address] [id number] [address] [place] [id number] Jun, [facility] [address] [id number] [address] [place] [id number] Jun, Lumbar neuritis M54.16 [facility] [address] [id number] [address] [place] [id number] May, Neuropathy G62.9 [facility] [address] [id number] [address] [place] [id number] May, [facility] [address] [id number] [address] [place] [phone] May, Neuropathy G62.9 and Hyperte nsion, benign I10 [facility] [address] [id number] [address] [place] [id number] 09 Apr, 2018 Polyneuropathy G62.9 and Hyp ertension, benign I10 [facility] [address] [id number] [address] [place] [id number] 17 Mar, 2018 Chronic pain syndrome G89.4 and Hypertension, benign I10 [facility] [id number] [place] [phone] 11 Mar, 2018 Polyneuropathy G62.9 and Hyp ertension, benign I10 [facility] [address] [id number] [place] [phone] 27 Feb, 2018 [facility] [address] [address] Feb, Hypertension, benign I10 [facility] [address] [id number] Feb, Hypertension, benign I10 ; P olyneuropathy G62.9 and Primary insomnia F51.01 [facility] [address] [id number] [address] [place] [id number] Jan, Hypertension, benign I10 and Polyneuropathy G62.9 [facility] [address] [id number] [address] [place] [id number] Jan, Hypertension, benign I10 and Neuropathy G62.9 [facility] [address] [id number] [address] [place] [id number] Jan, [facility] [address] [address] Dec, Polyneuropathy G62.9 [facility] [address] [id number] [address] [place] [phone] 14 Dec, 2017 Mood disorder F39 [facility] [address] [id number] November, Polyneuropathy G62.9 [facility] [address] [facility] [id number] [address] [place] [id number] November, Medicare annual wellness vis it, initial Z00.00 [facility] [address] [facility] [id number] [address] [place] [id number] November, Mood disorder F39 [facility] [address] [facility] [id number] [address] [place] [id number] Oct, Polyneuropathy G62.9 [facility] [address] [id number] [address] [place] [phone] Oct, [facility] [address] [facility] [id number] [address] [place] [id number] Oct, [facility] [address] [facility] [id number] [address] [place] [id number] Oct, Mood disorder F39 ; Attentio n to urostomy Z43.6 ; Chronic pain syndrome G89.4 and Polyneuropathy G62.9 [facility] [address] [id number] [address] [place] [id number] Sep, Polyneuropathy G62.9 [facility] [address] [facility] [id number] [address] [place] [id number] Sep, [facility] [address] [facility] [id number] [address] [place] [id number] Sep, Polyneuropathy G62.9 [facility] [address] [facility] [id number] [address] [place] [id number] Aug, Polyneuropathy G62.9 [facility] [address] [facility] [id number] [address] [place] [phone] Aug, Malignant neoplasm of colon, unspecified part of colon C18.9 and Polyneuropathy G62.9 [facility] [address] [facility] [id number] [address] [place] [id number] Aug, Neuropathy G62.9 and Polyneu ropathy G62.9 [facility] [address] [facility] [id number] [address] [place] [id number] Jul, Encounter for drug screening Z02.83 [facility] [address] [facility] [id number] [address] [place] [id number] Jul, Polyneuropathy G62.9 [facility] [address] [facility] [id number] [address] [place] [id number] Jul, [facility] [address] [facility] [id number] [address] [place] [id number] Jul, Neuropathy G62.9 and Anxiety F41.9 [facility] [address] [facility] [id number] [address] [place] [id number] Jul, [facility] [address] [facility] [id number] [address] [place] [id number] Jul, [facility] [address] [facility] [id number] [address] [place] [id number] Jul, [facility] [address] [facility] [id number] [address] [place] [id number] Jul, Polyneuropathy G62.9 [facility] [address] [facility] [id number] [address] [place] [id number] Jul, [facility] [address] [facility] [id number] [address] [place] [phone] Jun, [facility] [address] [facility] [id number] [address] [place] [id number] Jun, [facility] [address] [facility] [id number] [address] [place] [id number] Jun, [facility] [address] [id number] [place] [address] 07 Jun, 2017 Encounter for dental examina tion Z01.20 [facility] [address] [facility] [id number] [address] [place] [phone] Jun, Polyneuropathy G62.9 and Anx iety F41.9 [facility] [address] [id number] [address] [place] [phone] Jun, [facility] [address] [id number] [address] [place] [address] May, Dental examination Z01.20 [facility] [address] [place] [id number] [address] [place] [id number] May, Polyneuropathy G62.9 [facility] [address] [facility] [id number] [address] [place] [id number] Apr, Polyneuropathy G62.9 [facility] [address] [place] [place] [id number] [address] [place] [id number] Apr, Polyneuropathy G62.9 [facility] [address] [place] [id number] [address] [place] [id number] Apr, Hypertension, benign I10 ; P olyneuropathy G62.9 and Anxiety F41.9 [facility] [address] [place] [id number] [address] [place] [id number] Apr, Primary insomnia F51.01 and Polyneuropathy G62.9 [facility] [address] [place] [place] [id number] [address] [place] [id number] Apr, Primary insomnia F51.01 and Polyneuropathy G62.9 [facility] [address] [id number] [address] [place] [id number] Mar, Primary insomnia F51.01 [facility] [address] [place] [id number] [address] [place] [id number] Mar, [facility] [address] [place] [id number] [address] [place] [id number] Mar, Polyneuropathy G62.9 [facility] [address] [id number] [address] [place] [id number] Feb, Primary insomnia F51.01 [facility] [address] [id number] [address] [facility] [address] Feb, [facility] [address] [id number] [address] [place] [address], [place] [address] Feb, [facility] [address] [id number] [address] [place] [address], [place] [address] Feb, Polyneuropathy G62.9 [facility] [address] [id number] [address] [place] [address], [place] [address] Feb, Primary insomnia F51.01 [facility] [address] [id number] [address] [place] [address], [place] [address] Jan, [facility] [address] [id number] [address] [place] [address], [place] [address] Jan, [facility] [address] [id number] [address] [place] [address], [place] [address] Dec, [facility] [address] [id number] [address] [place] [address], [place] [address] Dec, Primary insomnia F51.01 [facility] [address] [id number] [address] [place] [address], [place] [address] Dec, Primary insomnia F51.01 [facility] [address] [id number] [address] [place] [address], [place] [address] Dec, [facility] [address] [id number] [address] [place] [id number] Dec, [facility] [address] [id number] [address] [place] [address], [place] [address] Dec, [facility] [address] [id number] [address] [place] [address], [place] [address] Dec, [facility] [address] [id number] [address] [place] [address], [place] [address] November, Primary insomnia F51.01 and Polyneuropathy G62.9 [facility] [address] [facility] [id number] [address] [place] [id number] November, [facility] [address] [facility] [id number] [address] [place] [id number] November, Abdominal pain, left lower q uadrant R10.32 [facility] [address] [facility] [id number] [address] [place] [id number] November, [facility] [address] [facility] [id number] [address] [place] [id number] Oct, [facility] [address] [facility] [id number] [address] [place] [id number] Oct, Abdominal pain, left lower q uadrant R10.32 ; H/O malignant carcinoid tumor of rectum Z85.040 and Neuropathy G62.9 [facility] [address] [facility] [id number] [address] [place] [id number] Oct, [facility] [address] [facility] [id number] [address] [place] [id number] Sep, [facility] [id number] [place] [id number] Sep, [facility] [address] [facility] [id number] [address] [place] [phone] Sep, [facility] [address] [facility] [id number] [address] [place] [phone] Aug, [facility] [address] [facility] [id number] [address] [place] [id number] Aug, [facility] [address] [facility] [id number] [address] [place] [id number] Aug, Abdominal pain, left lower q uadrant R10.32 ; Neuropathy G62.9 and Anxiety F41.9 [facility] [address] [place] [address] Jul, [facility] [address] [facility] [id number] [address] [place] [id number] Jul, [facility] [address] [id number] [address] [place] [id number] Jul, [facility] [address] [id number] [address] [place] [id number] Jul, [facility] [address] [id number] [address] [place] [phone] Jul, [facility] [address] [id number] [address] [place] [id number] Jun, [facility] [address] [id number] [address] [place] [id number] May, [facility] [address] [id number] [address] [place] [id number] May, [facility] [address] [id number] [address] [place] [id number] Apr, [facility] [address] [id number] [address] [place] [id number] Apr, Muscle spasms of both lower extremities M62.838 and Cellulitis, unspecified cellulitis site L03.90 [facility] [address] [id number] [address] [place] [phone] Apr, [facility] [address] [id number] [address] [place] [id number] 23 Mar, 2016 Generalized abdominal pain R 10.84 [facility] [address] [id number] [address] [place] [id number] 20 Mar, 2016 [facility] [address] [id number] [address] [place] [id number] 14 Mar, 2016 [facility] [address] [id number] [address] [place] [id number] 14 Mar, 2016 [facility] [address] [id number] [address] [place] [id number] 13 Mar, 2016 [facility] [address] [id number] [address] [place] [id number] Mar, [facility] [address] [id number] [address] [place] [phone] Mar, [facility] [address] [id number] [address] [place] [id number] Mar, [facility] [address] [id number] [address] [place] [id number] Feb, Other specified diseases of anus and rectum K62.89 [facility] [address] [id number] [address] [place] [id number] Feb, [facility] [address] [id number] [address] [place] [id number] Feb, Dizziness R42 [facility] [address] [id number] [address] [place] [phone] Feb, [facility] [address] [id number] [address] [place] [phone] Jan, Polyneuropathy G62.9 [facility] [address] [id number] [address] [place] [phone] Jan, Other specified diseases of anus and rectum K62.89 [facility] [address] [id number] [address] [place] [phone] Jan, [facility] [address] [id number] [address] [place] [phone] Jan, [facility] [address] [id number] [address] [place] [phone] Jan, [facility] [address] [id number] [address] [place] [phone] Jan, Dizziness R42 [facility] [address] [id number] [address] [place] [id number] Dec, [facility] [address] [id number] [address] [place] [id number] Dec, [facility] [address] [id number] [address] [place] [phone] Dec, [facility] [address] [id number] [address] [place] [phone] Dec, Dizziness R42 [facility] [address] [facility] [id number] [address] [place] [phone] November, [facility] [address] [id number] [address] [place] [id number] Oct, [facility] [address] [id number] [address] [place] [phone] Oct, [facility] [address] [id number] [address] [place] [phone] Oct, [facility] [address] [id number] [address] [place] [phone] Oct, [facility] [address] [id number] [address] [place] [phone] Sep, [facility] [address] [facility] [id number] [address] [place] [phone] Sep, Primary insomnia F51.01 [facility] [address] [facility] [id number] [address] [place] [phone] Sep, Primary insomnia F51.01 [facility] [facility] [address] [facility] [id number] [address] [place] [id number] Sep, [facility] [address] [id number] [address] [place] [id number] Aug, [facility] [address] [facility] [id number] [address] [place] [id number] Aug, [facility] [address] [facility] [id number] [address] [place] [id number] Aug, Primary insomnia F51.01 ; Mo od disorder F39 ; Nausea and vomiting, unspecified intactability, vomiting of unspecified type R11.2 and Diarrhea R19.7 [facility] [address] [facility] [id number] [address] [place] [id number] 15 Aug, 2015 [facility] [address] [facility] [id number] [address] [place] [id number] Aug, Folliculitis L73.9 [facility] [address] [facility] [id number] [address] [place] [id number] Aug, [facility] [address] [facility] [id number] [address] [place] [phone] Aug, [facility] [address] [place] [id number] [address] [place] [id number] Jul, Folliculitis L73.9 [facility] [address] [place] [id number] [address] [place] [id number] Jul, [facility] [address] [place] [id number] [address] [place] [id number] Jun, Folliculitis L73.9 [facility] [address] [facility] [id number] [address] [place] [id number] Jun, [facility] [address] [place] [id number] [address] [place] [id number] May, Polyneuropathy G62.9 [facility] [address] [facility] [id number] [address] [place] [id number] May, Other specified diseases of anus and rectum K62.89 [facility] [address] [facility] [id number] [address] [place] [id number] May, [facility] [address] [place] [id number] [address] [place] [id number] May, Primary insomnia F51.01 [facility] [address] [place] [id number] [address] [place] [id number] May, [facility] [address] [place] [id number] [address] [place] [id number] May, [facility] [address] [id number] [address] [place] [id number] Apr, Other specified diseases of anus and rectum K62.89 ; Chronic fatigue R53.82 ; Urinary tract infection, site not specified N39.0 and Enterococcus as the cause of diseases classified elsewhere B95.2 [facility] [address] [id number] [address] [place] [id number] 16 Apr, 2015 [facility] [address] [id number] [address] [place] [id number] 15 Apr, 2015 [facility] [address] [id number] [address] [place] [id number] Apr, 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.9 [facility] [address] [id number] [address] [place] [id number] 05 Apr, 2015 [facility] [address] [id number] [address] [place] [id number] 26 Mar, 2015 [facility] [address] [id number] [address] [place] [id number] 23 Mar, 2015 [facility] [address] [id number] [address] [place] [id number] 17 Mar, 2015 [facility] [address] [id number] [address] [place] [id number] 14 Mar, 2015 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.9 [facility] [address] [id number] [address] [place] [id number] 12 Mar, 2015 [facility] [address] [id number] [address] [place] [id number] 11 Mar, 2015 [facility] [address] [id number] [address] [place] [id number] 11 Mar, 2015 [facility] [address] [id number] [address] [place] [id number] 10 Mar, 2015 [facility] [address] [id number] [address] [place] [id number] Feb, [facility] [address] [id number] [address] [place] [id number] Feb, [facility] [address] [id number] [address] [place] [id number] Feb, [facility] [address] [id number] [address] [place] [id number] Jan, [facility] [address] [id number] [address] [place] [id number] Jan, Nausea 787.02 and Neuropathy 355.9 [facility] [address] [id number] [address] [place] [id number] Jan, [facility] [address] [id number] [address] [place] [id number] Jan, [facility] [address] [id number] [address] [place] [id number] Jan, [facility] [address] [id number] [address] [place] [id number] Jan, Dental examination V72.2 [facility] [address] [id number] [address] [place] [id number] Jan, [facility] [address] [id number] [address] [place] [id number] Dec, [facility] [address] [id number] [address] [place] [id number] Dec, [facility] [address] [id number] [address] [place] [id number] Dec, Neuropathy 355.9 [facility] [address] [id number] [address] [place] [id number] November, [facility] [address] [id number] [address] [place] [id number] November, [facility] [address] [id number] [address] [place] [address], [place] [address] November, [facility] [address] [id number] [address] [place] [address], [place] [address] Oct, [facility] [address] [id number] [address] [place] [address], [place] [address] Oct, [facility] [address] [id number] [address] [place] [address], [place] [address] Sep, [facility] [address] [id number] [address] [place] [address], [place] [address] Sep, [facility] [address] [id number] [address] [place] [address], [place] [address] Sep, [facility] [address] [id number] [address] [place] [address], [place] [address] Sep, [facility] [address] [id number] [address] [place] [address], [place] [address] Sep, [facility] [address] [id number] [address] [place] [address], [place] [address] Sep, [facility] [address] [id number] [address] [place] [address], [place] [address] Sep, [facility] [address] [id number] [address] [place] [address], [place] [address] Sep, [facility] [address] [id number] [address] [place] [address], [place] [address] Aug, [facility] [address] [id number] [address] [place] [address], [place] [address] Aug, [facility] [address] [id number] [address] [place] [address], [place] [address] Aug, [facility] [address] [id number] [address] [place] [address], [place] [address] Aug, [facility] [address] [id number] [address] [place] [address], [place] [address] Aug, [facility] [address] [id number] [facility] [place] [address] Aug, 2014 [facility] [address] [id number] [address] [place] [address], [place] [address] Aug, 2014 [facility] [address] [id number] [address] [place] [address], [place] [address] Aug, [facility] [address] [id number] [address] [place] [address], [place] [address] Jul, [facility] [address] [id number] [address] [place] [address], [place] [address] Jul, [facility] [address] [id number] [address] [place] [address], [place] [address] Jun, [facility] [address] [id number] [address] [place] [address], [place] [address] Jun, [facility] [address] [id number] [address] [place] [address], [place] [address] Jun, [facility] [address] [id number] [address] [place] [address], [place] [address] Jun, [facility] [address] [id number] [address] [place] [address], [place] [address] Jun, [facility] [address] [id number] [address] [place] [address], [place] [address] Jun, [facility] [address] [id number] [address] [place] [address], [place] [address] Jun, [facility] [address] [id number] [address] [place] [address], [place] [address] Jun, [facility] [address] [id number] [address] [place] [address], [place] [address] Jun, [facility] [address] [id number] [address] [place] [address], [place] [address] Jun, [facility] [address] [id number] [address] [place] [address], [place] [address] Jun, [facility] [address] [id number] [address] [place] [address], [place] [address] May, [facility] [address] [id number] [address] [place] [address], [place] [address] May, [facility] [address] [id number] [address] [place] [address], [place] [address] May, [facility] [address] [id number] [address] [place] [address], [place] [address] May, [facility] [address] [id number] [address] [place] [address], [place] [address] May, [facility] [address] [id number] [address] [place] [address], [place] [address] May, [facility] [address] [id number] [address] [place] [address], [place] [address] May, [facility] [address] [id number] [address] [place] [address], [place] [address] May, [facility] [address] [id number] [address] [place] [address], [place] [address] May, [facility] [address] [id number] [address] [place] [address], [place] [address] Apr, [facility] [address] [id number] [address] [place] [address], [place] [address] Apr, [facility] [address] [id number] [address] [place] [address], [place] [address] Apr, [facility] [address] [id number] [address] [place] [address], [place] [address] Apr, [facility] [address] [id number] [address] [place] [address], [place] [address] Apr, [facility] [address] [id number] [address] [place] [address], [place] [address] Mar, [facility] [address] [id number] [facility] [place] [address] Mar, [facility] [address] [id number] [address] [place] [address], [place] [address] Feb, [facility] [address] [id number] [address] [place] [address], [place] [address] Feb, [facility] [address] [id number] [address] [place] [address], [place] [address] Feb, [facility] [address] [id number] [address] [place] [address], [place] [address] Feb, [facility] [address] [id number] [address] [place] [address], [place] [address] Feb, [facility] [address] [id number] [address] [place] [address], [place] [address] Feb, [facility] [address] [id number] [address] [place] [address], [place] [address] Jan, [facility] [address] [id number] [address] [place] [address], [place] [address] Jan, [facility] [address] [id number] [address] [place] [address], [place] [address] Jan, [facility] [address] [id number] [address] [place] [address], [place] [address] Jan, [facility] [address] [id number] [address] [place] [address], [place] [address] Jan, [facility] [address] [id number] [address] [place] [address], [place] [address] Jan, [facility] [address] [id number] [address] [place] [address], [place] [address] Jan, [facility] [address] [id number] [address] [place] [address], [place] [address] Jan, [facility] [address] [id number] [address] [place] [address], [place] [address] Jan, [facility] [address] [id number] [facility] [place] [address] Jan, [facility] [address] [id number] [address] [place] [address], [place] [address] Jan, [facility] [address] [id number] [address] [place] [address], [place] [address] Dec, [facility] [address] [id number] [address] [place] [address], [place] [address] Dec, [facility] [address] [id number] [address] [place] [address], [place] [address] Dec, [facility] [address] [id number] [address] [place] [address], [place] [address] Dec, [facility] [address] [id number] [address] [place] [address], [place] [address] Dec, [facility] [address] [id number] [address] [place] [address], [place] [address] Dec, [facility] [address] [id number] [address] [place] [address], [place] [address] November, [facility] [address] [id number] [address] [place] [address], [place] [address] November, [facility] [address] [id number] [address] [place] [address], [place] [address] November, [facility] [address] [id number] [address] [place] [address], [place] [address] November, [facility] [address] [id number] [address] [place] [address], [place] [address] November, [facility] [address] [id number] [address] [place] [address], [place] [address] November, [facility] [address] [id number] [address] [place] [address], [place] [address] Oct, [facility] [address] [id number] [facility] [place] [address] 30 Oct, 2013 [facility] [address] [id number] [address] [place] [address], [place] [address] Oct, [facility] [address] [id number] [address] [place] [address], [place] [address] 16 Oct, 2013 [facility] [address] [id number] [address] [place] [address], [place] [address] 17 Sep, 2013 [facility] [address] [id number] [address] [place] [address], [place] [address] 17 Sep, 2013 [facility] [address] [id number] [address] [place] [address], [place] [address] Sep, [facility] [address] [id number] [address] [place] [address], [place] [address] Sep, [facility] [address] [id number] [address] [place] [address], [place] [address] Sep, [facility] [address] [id number] [address] [place] [address], [place] [address] Aug, [facility] [address] [id number] [address] [place] [address], [place] [address] Aug, [facility] [address] [id number] [address] [place] [address], [place] [address] Aug, [facility] [address] [id number] [address] [place] [address], [place] [address] Aug, [facility] [address] [id number] [address] [place] [address], [place] [address] 14 Aug, 2013 [facility] [place] [address] [place] [id number] May, [facility] [address] [id number] [address] [place] [address], [place] [address] May, [facility] [address] [id number] [address] [place] [address], [place] [address] May, [facility] [address] [id number] [address] [place] [address], [place] [address] May, [facility] [address] [id number] [address] [place] [address], [place] [address] May, [facility] [address] [id number] [address] [place] [address], [place] [address] Apr, [facility] [address] [id number] [address] [place] [address], [place] [address] Apr, [facility] [address] [id number] [address] [place] [address], [place] [address] Apr, [facility] [address] [id number] [address] [place] [address], [place] [address] Apr, [facility] [address] [id number] [address] [place] [address], [place] [address] Apr, [facility] [address] [id number] [address] [place] [address], [place] [address] Apr, [facility] [address] [id number] [address] [place] [address], [place] [address] Apr, [facility] [address] [id number] [address] [place] [address], [place] [address] 28 Mar, 2013 [facility] [address] [id number] [address] [place] [address], [place] [address] 25 Mar, 2013 [facility] [address] [id number] [address] [place] [address], [place] [address] 24 Sep, 2012 [facility] [address] [id number] [address] [place] [address], [place] [address] 16 Sep2012 [facility] [address] [id number] [address] [place] [address], [place] [address] 12 Sep2012 [facility] [address] [id number] [address] [place] [address], [place] [address] 06 Sep, 2012 [facility] [address] [id number] [address] [place] [address] [place] [address] Feb, [facility] [address] [id number] [address] [place] [address], [place] [address] Feb, [facility] [address] [id number] [address] [place] [address], [place] [address] Feb, [facility] [address] [id number] [address] [place] [address], [place] [address] Feb, [facility] [address] [id number] [address] [place] [address], [place] [address] Feb, [facility] [address] [id number] [address] [place] [address], [place] [address] Feb, [facility] [address] [id number] [address] [place] [address], [place] [address] Jan, [facility] [address] [id number] [address] [place] [address], [place] [address] Dec, [facility] [address] [id number] [address] [place] [address], [place] [address] Dec, [facility] [address] [id number] [address] [place] [address], [place] [address] Dec, [facility] [address] [id number] [address] [place] [address], [place] [address] Dec, [facility] [address] [id number] [address] [place] [address], [place] [address] Dec, [facility] [address] [id number] [address] [place] [address], [place] [address] 18 Dec, 2012 [facility] [address] [id number] [address] [place] [address], [place] [address] 17 Dec, 2012 [facility] [address] [id number] [address] [place] [address], [place] [address] Dec, [facility] [address] [id number] [address] [place] [address], [place] [address] Dec, [facility] [address] [id number] [address] [place] [id number] November, [facility] [address] [id number] [address] [place] [phone] November, [facility] [address] [id number] [address] [place] [id number] Oct, [facility] [address] [id number] [address] [place] [id number] Sep, [facility] [address] [id number] [address] [place] [phone] Sep, [facility] [address] [id number] [address] [place] [id number] 15 Sep, 2012 [facility] [address] [id number] [address] [place] [phone] Sep, [facility] [address] [id number] [address] [place] [phone] Aug, [facility] [address] [id number] [address] [place] [id number] Aug, [facility] [address] [id number] [address] [place] [phone] Jul, [facility] [address] [id number] [address] [place] [id number] Jul, [facility] [address] [id number] [address] [place] [phone] Jul, [facility] [address] [id number] [address] [place] [phone] Sep, [facility] [address] [id number] [address] [place] [id number] 17 Sep, 2011 [facility] [address] [id number] [address] [place] [phone] 10 Sep, 2011 IMMUNIZATIONS No Known Immunizations [...] obstruction, Dehydration -[facility] 01/01/[address] [facility]- UTI/Sepsis 01/18/2018 Hospitalization History [facility] - infection 4 days 05/2018
--- OUTSIDE RECORDS SUMMARY | 2020-01-14 23:13 | XMS REPORT ---
Author Author Melvin Hwang Doctor Organization [facility] Address Unknown Phone Unavailable Care Team Providers Care Quality Assurance Clerk Name Role Phone Migration, Doctor Unavailable Unavailable PROBLEMS Type Condition ICD9-CM Code [id number] Code Onset Dates Condition S tatus SNOMED Code Problem Primary insomnia F51.01 Active 193 920550 Problem Chronic fatigue, unspecified R53.82 A ctive 200444435 Problem Incontinence of feces, unspecified fecal incontinence type R15.9 Active 26767564 Problem Abdominal pain, left lower quadrant R10.32 Active 645408139 Problem Hypertension, benign I10 Active 89693619 Problem Mood disorder F39 Active 726302 05 Problem Attention to urostomy Z43.6 Active 772895652 Problem 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 729205306 Problem Chronic pain syndrome G89.4 Active 472011470 Problem Hydronephrosis with ureteral stricture, not else where classified N13.1 Active 50267057 Problem Neuropathy G62.9 Active 055095605 Problem Anxiety F41.9 Active 23675678 Problem Polyneuropathy G62.9 Active 80508 000 Problem Malignant neoplasm of colon, unspecified part of colon C18.9 Active [id number] ALLERGIES No Information ENCOUNTERS Encounter Location Date Diagnosis [place] [address] [address] [facility] [id number] [address] [place] [phone] Oct, [facility] [address] [facility] [id number] [address] [place] [address] Sep, [facility] [address] [facility] [id number] [address] [place] [address] Sep, Neuropathy G62.9 [facility] [address] [facility] [id number] [address] [place] [address] Sep, [place] [address] [address] [facility] [id number] [address] [place] [address] Sep, H/O malignant carcinoid tumo r of rectum Z85.040 and Primary insomnia F51.01 [facility] [address] [id number] [address] [place] [address] Aug, [facility] [address] [id number] [address] [place] [address] Aug, Neuropathy G62.9 [facility] [address] [id number] [address] [place] [address] Aug, [facility] [address] [id number] [address] [place] [address] Jul, Non-recurrent acute suppurat francine otitis media of left ear without spontaneous rupture of tympanic membrane H66.002 [facility] [address] [id number] [address] [place] [address] Jul, Neuropathy G62.9 [facility] [address] [id number] [address] [place] [address] Jun, [facility] [address] [id number] [address] [place] [address] Jun, [facility] [address] [id number] [address] [place] [address] Jun, Neuropathy G62.9 [facility] [address] [facility] [id number] [address] [place] [address] Jun, [facility] [address] [id number] [address] [place] [address] Jun, [facility] [address] [facility] [id number] [address] [place] [address] Jun, Lumbar neuritis M54.16 [facility] [address] [id number] [address] [place] [address] May, Neuropathy G62.9 [facility] [address] [facility] [id number] [address] [place] [address] May, [facility] [address] [address] 05 May, 2018 Neuropathy G62.9 and Hyperte nsion, benign I10 [facility] [address] [address] 09 Apr, 2018 Polyneuropathy G62.9 and Hyp ertension, benign I10 [facility] [address] [address] 17 Mar, 2018 Chronic pain syndrome G89.4 and Hypertension, benign I10 [facility] [address] [place] [id number] [place] [address] 11 Mar, 2018 Polyneuropathy G62.9 and Hyp ertension, benign I10 [place] [address] [address] [place] [id number] [place] [address] 27 Feb, 2018 [place] [address] [address] Feb, Hypertension, benign I10 [facility] [address] [id number] 15 Feb, 2018 Hypertension, benign I10 ; P olyneuropathy G62.9 and Primary insomnia F51.01 [facility] [address] [place] [id number] [place] [address] Jan, Hypertension, benign I10 and Polyneuropathy G62.9 [facility] [address] [address] Jan, Hypertension, benign I10 and Neuropathy G62.9 [facility] [address] [place] [id number] [address] [place] [address] Jan, [facility] [address] [address] Dec, Polyneuropathy G62.9 [facility] [address] [place] [id number] [place] [address] 14 Dec, 2017 Mood disorder F39 [facility] [address] [place] [id number] [address] [place] [address] November, Polyneuropathy G62.9 [facility] [address] [facility] [id number] [address] [place] [address] November, Medicare annual wellness vis it, initial Z00.00 [facility] [address] [facility] [id number] [address] [place] [address] November, Mood disorder F39 [facility] [address] [facility] [id number] [address] [place] [address] Oct, Polyneuropathy G62.9 [facility] [address] [id number] [address] [place] [address] Oct, [facility] [address] [facility] [id number] [address] [place] [address] Oct, [facility] [address] [facility] [id number] [address] [place] [address] Oct, Mood disorder F39 ; Attentio n to urostomy Z43.6 ; Chronic pain syndrome G89.4 and Polyneuropathy G62.9 [facility] [address] [facility] [id number] [address] [place] [address] Sep, Polyneuropathy G62.9 [facility] [address] [facility] [id number] [address] [place] [address] Sep, [facility] [address] [facility] [id number] [address] [place] [address] Sep, Polyneuropathy G62.9 [facility] [address] [facility] [id number] [address] [place] [address] Aug, Polyneuropathy G62.9 [facility] [address] [facility] [id number] [address] [place] [address] Aug, Malignant neoplasm of colon, unspecified part of colon C18.9 and Polyneuropathy G62.9 [facility] [address] [facility] [id number] [address] [place] [address] Aug, Neuropathy G62.9 and Polyneu ropathy G62.9 [facility] [address] [facility] [id number] [address] [place] [address] Jul, Encounter for drug screening Z02.83 [facility] [address] [facility] [id number] [address] [place] [address] Jul, Polyneuropathy G62.9 [facility] [address] [id number] [address] [place] [address] Jul, [facility] [address] [facility] [id number] [address] [place] [address] Jul, Neuropathy G62.9 and Anxiety F41.9 [facility] [address] [facility] [id number] [address] [place] [address] Jul, [facility] [address] [facility] [id number] [address] [place] [address] Jul, [facility] [address] [id number] [address] [place] [address] Jul, [facility] [address] [facility] [id number] [address] [place] [address] Jul, Polyneuropathy G62.9 [facility] [address] [facility] [id number] [address] [place] [address] Jul, [facility] [address] [facility] [id number] [address] [place] [address] Jun, [facility] [address] [facility] [id number] [address] [place] [address] Jun, [facility] [address] [facility] [id number] [address] [place] [address] Jun, [facility] [address] [id number] [address] [place] [address] 07 Jun, 2017 Encounter for dental examina tion Z01.20 [facility] [id number] [place] [address] Jun, Polyneuropathy G62.9 and Anx iety F41.9 [facility] [id number] [place] [address] Jun, [facility] [address] [place] [address] [place] [address] May, Dental examination Z01.20 [facility] [address] [address] May, Polyneuropathy G62.9 [facility] [address] [address] Apr, Polyneuropathy G62.9 [facility] [address] [address] Apr, Polyneuropathy G62.9 [facility] [address] [address] Apr, Hypertension, benign I10 ; P olyneuropathy G62.9 and Anxiety F41.9 [facility] [address] [place] [id number] [address] [place] [address] Apr, Primary insomnia F51.01 and Polyneuropathy G62.9 [facility] [address] [address] Apr, Primary insomnia F51.01 and Polyneuropathy G62.9 [facility] [address] [place] [id number] [address] [place] [address] Mar, Primary insomnia F51.01 [facility] [address] [address] Mar, [facility] [address] [place] [id number] [address] [place] [address] Mar, Polyneuropathy G62.9 [facility] [address] [place] [id number] [address] [place] [address] Feb, Primary insomnia F51.01 [facility] [address] [id number] [address] [place] [address], [place] [address] Feb, [facility] [address] [id number] [address] [place] [address], [place] [address] Feb, [facility] [address] [id number] [address] [place] [address], [place] [address] Feb, Polyneuropathy G62.9 [facility] [address] [id number] [address] [place] [address], [place] [address] Feb, Primary insomnia F51.01 [facility] [address] [id number] [address] [place] [address], [place] [address] Jan, [facility] [address] [facility] [id number] [address] [place] [address], [place] [address] Jan, [facility] [address] [id number] [address] [place] [address] Dec, [facility] [address] [id number] [address] [place] [address], [place] [address] Dec, Primary insomnia F51.01 [facility] [address] [id number] [address] [place] [address], [place] [address] Dec, Primary insomnia F51.01 [facility] [address] [id number] [address] [place] [address], [place] [address] Dec, [facility] [address] [id number] [address] [place] [address] Dec, [facility] [address] [id number] [address] [place] [address] Dec, [facility] [address] [facility] [id number] [address] [place] [address], [place] [address] Dec, [facility] [address] [facility] [id number] [address] [place] [address] November, Primary insomnia F51.01 and Polyneuropathy G62.9 [facility] [address] [facility] [id number] [address] [place] [address] November, [facility] [address] [place] [id number] [address] [place] [address] November, Abdominal pain, left lower q uadrant R10.32 [facility] [address] [place] [id number] [address] [place] [address] November, [facility] [address] [facility] [id number] [address] [place] [address] Oct, [facility] [address] [place] [id number] [address] [place] [address] Oct, Abdominal pain, left lower q uadrant R10.32 ; H/O malignant carcinoid tumor of rectum Z85.040 and Neuropathy G62.9 [facility] [address] [place] [id number] [address] [place] [address] Oct, [facility] [address] [facility] [id number] [address] [place] [address] Sep, [facility] [address] [place] [id number] [place] [id number] Sep, [facility] [address] [place] [id number] [address] [place] [address] Sep, [facility] [address] [place] [id number] [address] [place] [address] Aug, [facility] [address] [facility] [id number] [address] [place] [address] Aug, [facility] [address] [place] [id number] [address] [place] [address] Aug, Abdominal pain, left lower q uadrant R10.32 ; Neuropathy G62.9 and Anxiety F41.9 [facility] [address] [place] [address] Jul, [facility] [address] [place] [id number] [place] [address] Jul, [facility] [address] [id number] [address] [place] [address] Jul, [facility] [address] [id number] [address] [place] [address] Jul, [facility] [address] [id number] [address] [place] [address] Jul, [facility] [address] [id number] [address] [place] [address] Jun, [facility] [address] [id number] [address] [place] [address] May, [facility] [address] [id number] [address] [place] [address] May, [facility] [address] [id number] [address] [place] [address] Apr, [facility] [address] [id number] [address] [place] [address] Apr, Muscle spasms of both lower extremities M62.838 and Cellulitis, unspecified cellulitis site L03.90 [facility] [address] [id number] [address] [place] [address] Apr, [facility] [address] [id number] [address] [place] [address] 23 Mar, 2016 Generalized abdominal pain R 10.84 [facility] [address] [id number] [address] [place] [address] 20 Mar, 2016 [facility] [address] [id number] [address] [place] [address] 14 Mar, 2016 [facility] [address] [id number] [address] [place] [address] 14 Mar, 2016 [facility] [address] [id number] [address] [place] [address] 13 Mar, 2016 [facility] [address] [id number] [address] [place] [address] 12 Mar, 2016 [facility] [address] [id number] [address] [place] [address] Mar, [facility] [address] [id number] [address] [place] [address] Mar, [facility] [address] [id number] [address] [place] [address] Feb, Other specified diseases of anus and rectum K62.89 [facility] [address] [id number] [address] [place] [address] Feb, [facility] [address] [id number] [address] [place] [address] Feb, Dizziness R42 [facility] [address] [id number] [address] [place] [address] Feb, [facility] [address] [id number] [address] [place] [address] Jan, Polyneuropathy G62.9 [facility] [address] [id number] [address] [place] [address] Jan, Other specified diseases of anus and rectum K62.89 [facility] [address] [id number] [address] [place] [address] Jan, [facility] [address] [id number] [address] [place] [address] Jan, [facility] [address] [id number] [address] [place] [phone] Jan, [facility] [address] [id number] [address] [place] [address] Jan, Dizziness R42 [facility] [address] [id number] [address] [place] [address] Dec, [facility] [address] [id number] [address] [place] [address] Dec, [facility] [address] [id number] [address] [place] [address], [place] [address] Dec, [facility] [address] [id number] [address] [place] [address], [place] [address] Dec, Dizziness R42 [facility] [address] [id number] [address] [place] [address] November, [facility] [address] [id number] [address] [place] [address], [place] [address] Oct, [facility] [address] [id number] [address] [place] [address], [place] [address] Oct, [facility] [address] [id number] [address] [place] [address] Oct, [facility] [address] [id number] [address] [place] [address] Oct, [facility] [address] [id number] [address] [place] [address] Sep, [facility] [address] [id number] [address] [place] [address] Sep, Primary insomnia F51.01 [facility] [address] [facility] [id number] [address] [place] [address] Sep, Primary insomnia F51.01 [facility] [address] [id number] [address] [place] [address] Sep, [facility] [address] [id number] [address] [place] [address] Aug, [facility] [address] [id number] [address] [place] [address] Aug, [facility] [address] [facility] [id number] [address] [place] [address] Aug, Primary insomnia F51.01 ; Mo od disorder F39 ; Nausea and vomiting, unspecified intactability, vomiting of unspecified type R11.2 and Diarrhea R19.7 [facility] [address] [place] [id number] [address] [place] [address] Aug, [facility] [address] [place] [id number] [address] [place] [address] Aug, Folliculitis L73.9 [facility] [address] [place] [id number] [place] [address] Aug, [facility] [address] [place] [id number] [place] [address] Aug, [facility] [address] [place] [id number] [place] [address] Jul, Folliculitis L73.9 [facility] [address] [place] [id number] [address] [place] [address] Jul, [facility] [address] [address] Jun, Folliculitis L73.9 [facility] [address] [address] Jun, [facility] [address] [address] May, Polyneuropathy G62.9 [facility] [address] [place] [id number] [address] [place] [address] May, Other specified diseases of anus and rectum K62.89 [facility] [address] [place] [id number] [address] [place] [address] May, [facility] [address] [address] May, Primary insomnia F51.01 [facility] [address] [place] [id number] [address] [place] [address] May, [facility] [address] [place] [id number] [place] [address] May, [facility] [address] [id number] [address] [place] [id number] Apr, Other specified diseases of anus and rectum K62.89 ; Chronic fatigue R53.82 ; Urinary tract infection, site not specified N39.0 and Enterococcus as the cause of diseases classified elsewhere B95.2 [facility] [address] [id number] [address] [place] [id number] 16 Apr, 2015 [facility] [address] [id number] [address] [place] [id number] 15 Apr, 2015 [facility] [address] [id number] [address] [place] [id number] Apr, Unspecified inflammatory and toxic neuropathy 357.9 [facility] [address] [id number] [address] [place] [id number] 05 Apr, 2015 [facility] [address] [id number] [address] [place] [id number] 26 Mar, 2015 [facility] [address] [id number] [address] [place] [id number] 23 Mar, 2015 [facility] [address] [id number] [address] [place] [id number] 17 Mar, 2015 [facility] [address] [id number] [address] [place] [id number] 14 Mar, 2015 Unspecified inflammatory and toxic neuropathy 357.9 [facility] [address] [id number] [address] [place] [id number] 12 Mar, 2015 [facility] [address] [id number] [address] [place] [id number] 11 Mar, 2015 [facility] [address] [id number] [address] [place] [id number] 11 Mar, 2015 [facility] [address] [id number] [address] [place] [id number] Mar, [facility] [address] [id number] [address] [place] [id number] Feb, [facility] [address] [id number] [address] [place] [id number] Feb, [facility] [address] [id number] [address] [place] [id number] Feb, [facility] [address] [id number] [address] [place] [id number] Jan, [facility] [address] [id number] [address] [place] [phone] Jan, Nausea 787.02 and Neuropathy 355.9 [facility] [address] [id number] [address] [place] [id number] Jan, [facility] [address] [id number] [address] [place] [id number] Jan, [facility] [address] [id number] [address] [place] [id number] Jan, [facility] [address] [id number] [address] [place] [id number] Jan, Dental examination V72.2 [facility] [address] [id number] [address] [place] [phone] Jan, [facility] [address] [id number] [address] [place] [id number] Dec, [facility] [address] [id number] [address] [place] [id number] Dec, [facility] [address] [id number] [address] [place] [phone] Dec, Neuropathy 355.9 [facility] [address] [id number] [address] [place] [address] November, [facility] [address] [id number] [address] [place] [address] November, [facility] [address] [id number] [address] [place] [address], [place] [address] November, [facility] [address] [id number] [address] [place] [address], [place] [address] Oct, [facility] [address] [id number] [address] [place] [address], [place] [address] Oct, [facility] [address] [id number] [address] [place] [address], [place] [address] Sep, [facility] [address] [id number] [address] [place] [address], [place] [address] Sep, [facility] [address] [id number] [address] [place] [address], [place] [address] Sep, [facility] [address] [id number] [address] [place] [address], [place] [address] Sep, [facility] [address] [id number] [address] [place] [address], [place] [address] Sep, [facility] [address] [id number] [address] [place] [address], [place] [address] Sep, [facility] [address] [id number] [address] [place] [address], [place] [address] Sep, [facility] [address] [id number] [address] [place] [address], [place] [address] Sep, [facility] [address] [id number] [address] [place] [address], [place] [address] Aug, [facility] [address] [id number] [address] [place] [address], [place] [address] Aug, [facility] [address] [id number] [address] [place] [address], [place] [address] Aug, [facility] [address] [id number] [address] [place] [address], [place] [address] Aug, [facility] [address] [id number] [address] [place] [address], [place] [address] Aug, 2014 [facility] [address] [id number] [address] [place] [address], [place] [address] Aug, 2014 [facility] [address] [id number] [address] [place] [address], [place] [address] Aug, 2014 [facility] [address] [id number] [address] [place] [address], [place] [address] Aug, [facility] [address] [id number] [address] [place] [address], [place] [address] Jul, [facility] [address] [id number] [address] [place] [address], [place] [address] Jul, [facility] [address] [id number] [address] [place] [address], [place] [address] Jun, [facility] [address] [id number] [address] [place] [address], [place] [address] Jun, [facility] [address] [id number] [address] [place] [address], [place] [address] Jun, [facility] [address] [id number] [address] [place] [address], [place] [address] Jun, [facility] [address] [id number] [address] [place] [address], [place] [address] Jun, [facility] [address] [id number] [address] [place] [address], [place] [address] Jun, [facility] [address] [id number] [address] [place] [address], [place] [address] Jun, [facility] [address] [id number] [address] [place] [address], [place] [address] Jun, [facility] [address] [id number] [address] [place] [address], [place] [address] Jun, [facility] [address] [id number] [address] [place] [address], [place] [address] Jun, [facility] [address] [id number] [address] [place] [address], [place] [address] Jun, [facility] [address] [id number] [address] [place] [address], [place] [address] May, [facility] [address] [id number] [address] [place] [address], [place] [address] May, [facility] [address] [id number] [address] [place] [address], [place] [address] May, [facility] [address] [id number] [address] [place] [address], [place] [address] May, [facility] [address] [id number] [address] [place] [address], [place] [address] May, [facility] [address] [id number] [address] [place] [address], [place] [address] May, [facility] [address] [id number] [address] [place] [address], [place] [address] May, [facility] [address] [id number] [address] [place] [address], [place] [address] May, [facility] [address] [id number] [address] [place] [address], [place] [address] May, [facility] [address] [id number] [address] [place] [address], [place] [address] Apr, [facility] [address] [id number] [address] [place] [address], [place] [address] Apr, [facility] [address] [id number] [address] [place] [address], [place] [address] Apr, [facility] [address] [id number] [address] [place] [address], [place] [address] Apr, [facility] [address] [id number] [address] [place] [address], [place] [address] Apr, [facility] [address] [id number] [address] [place] [address], [place] [address] Mar, [facility] [address] [id number] [facility] [place] [address] Mar, [facility] [address] [id number] [address] [place] [address], [place] [address] Feb, [facility] [address] [id number] [address] [place] [address], [place] [address] Feb, [facility] [address] [id number] [address] [place] [address], [place] [address] Feb, [facility] [address] [id number] [address] [place] [address], [place] [address] Feb, [facility] [address] [id number] [address] [place] [address], [place] [address] Feb, [facility] [address] [id number] [address] [place] [address], [place] [address] Feb, [facility] [address] [id number] [address] [place] [address], [place] [address] Jan, [facility] [address] [id number] [address] [place] [address], [place] [address] Jan, [facility] [address] [id number] [address] [place] [address], [place] [address] Jan, [facility] [address] [id number] [address] [place] [address], [place] [address] Jan, [facility] [address] [id number] [address] [place] [address], [place] [address] Jan, [facility] [address] [id number] [address] [place] [address], [place] [address] Jan, [facility] [address] [id number] [address] [place] [address], [place] [address] Jan, [facility] [address] [id number] [address] [place] [address], [place] [address] Jan, [facility] [address] [id number] [facility] [place] [address] Jan, [facility] [address] [id number] [facility] [place] [address] Jan, [facility] [address] [id number] [facility] [place] [address] Jan, [facility] [address] [id number] [address] [place] [address], [place] [address] Dec, [facility] [address] [id number] [address] [place] [address], [place] [address] Dec, [facility] [address] [id number] [address] [place] [address], [place] [address] Dec, [facility] [address] [id number] [address] [place] [address], [place] [address] Dec, [facility] [address] [id number] [address] [place] [address], [place] [address] Dec, [facility] [address] [id number] [address] [place] [address], [place] [address] Dec, [facility] [address] [id number] [address] [place] [address], [place] [address] November, [facility] [address] [id number] [address] [place] [address], [place] [address] November, [facility] [address] [id number] [address] [place] [address], [place] [address] November, [facility] [address] [id number] [address] [place] [address], [place] [address] November, [facility] [address] [id number] [address] [place] [address], [place] [address] November, [facility] [address] [id number] [address] [place] [address], [place] [address] November, [facility] [address] [id number] [address] [place] [address], [place] [address] Oct, [facility] [address] [id number] [address] [place] [address], [place] [address] Oct, [facility] [address] [id number] [address] [place] [address], [place] [address] Oct, [facility] [address] [id number] [address] [place] [address], [place] [address] Oct, [facility] [address] [id number] [address] [place] [address], [place] [address] Sep, [facility] [address] [id number] [address] [place] [address], [place] [address] Sep, [facility] [address] [id number] [address] [place] [address], [place] [address] Sep, [facility] [address] [id number] [address] [place] [address], [place] [address] Sep, [facility] [address] [id number] [address] [place] [address], [place] [address] Sep, [facility] [address] [id number] [address] [place] [address], [place] [address] Aug, [facility] [address] [id number] [address] [place] [address], [place] [address] Aug, [facility] [address] [id number] [address] [place] [address], [place] [address] Aug, [facility] [address] [id number] [address] [place] [address], [place] [address] Aug, [facility] [address] [id number] [address] [place] [address], [place] [address] 14 Aug, 2013 [facility] [address] [place] [id number] May, [facility] [address] [id number] [address] [place] [address] May, [facility] [address] [id number] [address] [place] [address] 08 May, 2013 [facility] [address] [id number] [address] [place] [address], [place] [address] May, [facility] [address] [id number] [address] [place] [address], [place] [address] May, [facility] [address] [id number] [address] [place] [address], [place] [address] Apr, [facility] [address] [id number] [address] [place] [address], [place] [address] Apr, [facility] [address] [id number] [address] [place] [address], [place] [address] Apr, [facility] [address] [id number] [address] [place] [address], [place] [address] Apr, [facility] [address] [id number] [address] [place] [address], [place] [address] Apr, [facility] [address] [id number] [address] [place] [address], [place] [address] Apr, [facility] [address] [id number] [address] [place] [address], [place] [address] Apr, [facility] [address] [id number] [address] [place] [address], [place] [address] 28 Mar, 2013 [facility] [address] [id number] [address] [place] [address], [place] [address] 25 Sep, 2012 [facility] [address] [id number] [address] [place] [address], [place] [address] 24 Sep, 2012 [facility] [address] [id number] [address] [place] [address], [place] [address] 16 Sep, 2012 [facility] [address] [id number] [address] [place] [address], [place] [address] 12 Sep, 2012 [facility] [address] [id number] [address] [place] [address], [place] [address] 06 Sep, 2012 [facility] [address] [id number] [facility] [place] [address] Feb, [facility] [address] [id number] [facility] [place] [address] Feb, [facility] [address] [id number] [facility] [place] [address] Feb, [facility] [address] [id number] [address] [place] [address], [place] [address] Feb, [facility] [address] [id number] [address] [place] [address], [place] [address] Feb, [facility] [address] [id number] [address] [place] [address], [place] [address] Feb, [facility] [address] [id number] [address] [place] [address], [place] [address] Jan, [facility] [address] [id number] [address] [place] [address], [place] [address] Dec, [facility] [address] [id number] [address] [place] [address], [place] [address] Dec, [facility] [address] [id number] [address] [place] [address], [place] [address] Dec, [facility] [address] [id number] [address] [place] [address], [place] [address] Dec, [facility] [address] [id number] [address] [place] [address], [place] [address] Dec, [facility] [address] [id number] [address] [place] [address], [place] [address] 18 Dec, 2012 [facility] [address] [id number] [address] [place] [address], [place] [address] 17 Dec, [address] [facility] [address] [id number] [address] [place] [address], [place] [address] Dec, [facility] [address] [id number] [address] [place] [address], [place] [address] Dec, [facility] [address] [id number] [address] [place] [address], [place] [address] November, [facility] [address] [id number] [address] [place] [address], [place] [address] November, [facility] [address] [id number] [address] [place] [address], [place] [address] Oct, [facility] [address] [id number] [address] [place] [address], [place] [address] Sep, [facility] [address] [id number] [address] [place] [address], [place] [address] Sep, [facility] [address] [id number] [address] [place] [address] Sep, [facility] [address] [id number] [address] [place] [address], [place] [address] Sep, [facility] [address] [id number] [address] [place] [address] Aug, [facility] [address] [id number] [address] [place] [address], [place] [address] Aug, [facility] [address] [id number] [address] [place] [address] Jul, [facility] [address] [id number] [address] [place] [address] Jul, [facility] [address] [id number] [address] [place] [address] Jul, [facility] [address] [id number] [address] [place] [address] Sep, [facility] [address] [id number] [address] [place] [address] 17 Sep, 2011 [facility] [address] [id number] [address] [place] [address] 10 Sep, 2011 IMMUNIZATIONS No Known Immunizations [...] [facility]- UTI/Sepsis 01/18/2018 Hospitalization History [facility] - infection 4 days 05/2018
--- OUTSIDE RECORDS SUMMARY | 2020-01-14 23:14 | XMS REPORT ---
Author Author Melvin BENTLEY Organization [facility] Address [address] [place] [address] Care Team Providers Care Warranty Clerk Name Role Phone LINDA BENTLEY Unavailable PROBLEMS Type Condition ICD9-CM Code LDP02-PL Code Onset Dates Condition S tatus SNOMED Code Problem Abdominal pain, left lower quadrant R10.32 Active 474057876 Problem Mood disorder F39 Active 738593 05 Problem Hypertension, benign I10 Active 17731110 Problem Chronic pain syndrome G89.4 Active 584789530 Problem Attention to urostomy Z43.6 Active 583247413 Problem Anxiety F41.9 Active 54716742 Problem Neuropathy G62.9 Active 183960533 Problem Malignant neoplasm of colon, unspecified part of colon C18.9 Active 032831729 Problem Polyneuropathy G62.9 Active 68724 000 Problem Incontinence of feces, unspecified fecal incontinence type R15.9 Active 30663659 Problem Chronic fatigue, unspecified R53.82 A ctive 409657308 Problem Hydronephrosis with ureteral stricture, not else where classified N13.1 Active 09282717 Problem Primary insomnia F51.01 Active 193 430427 Problem 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 722344560 ALLERGIES Substance Reaction Event Type Date Status Morphine itching Drug Allergy Jun, Active Codeine nausea and vomiting Drug Allergy Jun, Active ENCOUNTERS Encounter Location Date Diagnosis [facility] [address] [facility] [id number] [address] [place] [address] Jul, [facility] [address] [facility] [id number] [address] [place] [address] Jun, [facility] [address] [facility] [id number] [address] [place] [address] Jun, [facility] [address] [facility] [id number] [address] [place] [address] Jun, Lumbar neuritis M54.16 [facility] [id number] [place] [address] May, Neuropathy G62.9 [facility] [address] [place] [id number] [address] [place] [address] May, [facility] [address] [place] [id number] [place] [address] May, Neuropathy G62.9 and Hyperte nsion, benign I10 [facility] [address] [place] [id number] [place] [address] 09 Apr, 2018 Polyneuropathy G62.9 and Hyp ertension, benign I10 [place] [address] [place] [id number] [place] [address] 17 Mar, 2018 Chronic pain syndrome G89.4 and Hypertension, benign I10 [place] [address] [address] Mar, Polyneuropathy G62.9 and Hyp ertension, benign I10 [facility] [address] [address] Feb, [facility] [address] [address] Feb, Hypertension, benign I10 [place] [address] [address] Feb, Hypertension, benign I10 ; P olyneuropathy G62.9 and Primary insomnia F51.01 [facility] [address] [place] [id number] [address] [place] [address] Jan, Hypertension, benign I10 and Polyneuropathy G62.9 [facility] [address] [place] [id number] [address] [place] [address] Jan, Hypertension, benign I10 and Neuropathy G62.9 [facility] [address] [place] [id number] [address] [place] [address] Jan, [facility] [address] [id number] [address] [place] [address] Dec, Polyneuropathy G62.9 [facility] [address] [id number] [address] [place] [address] Dec, Mood disorder F39 [facility] [address] [id number] [address] [place] [address] November, Polyneuropathy G62.9 [facility] [address] [id number] [address] [place] [address] November, Medicare annual wellness vis it, initial Z00.00 [facility] [address] [id number] [address] [place] [address] November, Mood disorder F39 [facility] [address] [id number] [address] [place] [address] 24 Oct, 2017 Polyneuropathy G62.9 [facility] [address] [id number] [address] [place] [address] 17 Oct, 2017 [facility] [address] [facility] [id number] [address] [place] [address] Oct, [facility] [address] [facility] [id number] [address] [place] [address] Oct, Mood disorder F39 ; Attentio n to urostomy Z43.6 ; Chronic pain syndrome G89.4 and Polyneuropathy G62.9 [facility] [address] [id number] [address] [place] [address] Sep, Polyneuropathy G62.9 [facility] [address] [id number] [address] [place] [address] Sep, [facility] [address] [facility] [id number] [address] [place] [address] Sep, Polyneuropathy G62.9 [facility] [address] [id number] [address] [place] [address] Aug, Polyneuropathy G62.9 [facility] [address] [facility] [id number] [address] [place] [address] Aug, Malignant neoplasm of colon, unspecified part of colon C18.9 and Polyneuropathy G62.9 [facility] [address] [facility] [id number] [address] [place] [address] Aug, Neuropathy G62.9 and Polyneu ropathy G62.9 [facility] [address] [facility] [id number] [address] [place] [address] Jul, Encounter for drug screening Z02.83 [facility] [address] [facility] [id number] [address] [place] [address] Jul, Polyneuropathy G62.9 [facility] [address] [facility] [id number] [address] [place] [address] Jul, [facility] [address] [facility] [id number] [address] [place] [address] Jul, Neuropathy G62.9 and Anxiety F41.9 [facility] [address] [facility] [id number] [address] [place] [address] Jul, [facility] [address] [facility] [id number] [address] [place] [address] Jul, [facility] [address] [facility] [id number] [address] [place] [address] Jul, [facility] [address] [facility] [id number] [address] [place] [address] Jul, Polyneuropathy G62.9 [facility] [address] [facility] [id number] [address] [place] [id number] Jul, [facility] [address] [facility] [id number] [address] [place] [address] Jun, [facility] [address] [facility] [id number] [address] [place] [address] Jun, [facility] [address] [facility] [id number] [address] [place] [address] Jun, [facility] [address] [id number] [place] [address] Jun, Encounter for dental examina tion Z01.20 [facility] [address] [facility] [id number] [address] [place] [address] Jun, Polyneuropathy G62.9 and Anx iety F41.9 [facility] [address] [facility] [id number] [address] [place] [address] Jun, [facility] [address] [id number] [place] [address] May, Dental examination Z01.20 [facility] [address] [facility] [id number] [address] [place] [address] May, Polyneuropathy G62.9 [facility] [address] [facility] [id number] [address] [place] [address] Apr, Polyneuropathy G62.9 [facility] [address] [facility] [id number] [address] [place] [address] Apr, Polyneuropathy G62.9 [facility] [address] [facility] [id number] [address] [place] [address] Apr, Hypertension, benign I10 ; P olyneuropathy G62.9 and Anxiety F41.9 [facility] [address] [facility] [id number] [address] [place] [address] Apr, Primary insomnia F51.01 and Polyneuropathy G62.9 [facility] [address] [facility] [id number] [address] [place] [address] Apr, Primary insomnia F51.01 and Polyneuropathy G62.9 [facility] [address] [facility] [id number] [address] [place] [address] Mar, Primary insomnia F51.01 [facility] [address] [id number] [address] [place] [address] Mar, [facility] [address] [id number] [address] [place] [address], [place] [address] Mar, Polyneuropathy G62.9 [facility] [address] [id number] [address] [place] [address], [place] [address] Feb, Primary insomnia F51.01 [facility] [address] [id number] [address] [place] [address], [place] [address] Feb, [facility] [address] [id number] [address] [place] [address], [place] [address] Feb, [facility] [address] [id number] [address] [place] [address], [place] [address] Feb, Polyneuropathy G62.9 [facility] [address] [id number] [address] [place] [address], [place] [address] Feb, Primary insomnia F51.01 [facility] [address] [id number] [address] [place] [address], [place] [address] Jan, [facility] [address] [id number] [address] [place] [address], [place] [address] Jan, [facility] [address] [id number] [address] [place] [address], [place] [address] Dec, [facility] [address] [id number] [address] [place] [address], [place] [address] Dec, Primary insomnia F51.01 [facility] [address] [id number] [address] [place] [address], [place] [address] Dec, Primary insomnia F51.01 [facility] [address] [id number] [address] [place] [address], [place] [address] Dec, [facility] [address] [id number] [address] [place] [address], [place] [address] Dec, [facility] [address] [id number] [address] [place] [address] Dec, [facility] [address] [id number] [address] [place] [address] Dec, [facility] [address] [id number] [address] [place] [address] November, Primary insomnia F51.01 and Polyneuropathy G62.9 [facility] [address] [id number] [address] [place] [address] November, [facility] [address] [id number] [address] [place] [address] November, Abdominal pain, left lower q uadrant R10.32 [facility] [address] [id number] [address] [place] [address] November, [facility] [address] [facility] [id number] [address] [place] [address] Oct, [facility] [address] [id number] [address] [place] [address] Oct, Abdominal pain, left lower q uadrant R10.32 ; H/O malignant carcinoid tumor of rectum Z85.040 and Neuropathy G62.9 [facility] [address] [id number] [address] [place] [address] Oct, [facility] [address] [facility] [id number] [address] [place] [phone] Sep, [facility] [id number] [place] [id number] Sep, [facility] [address] [facility] [id number] [address] [place] [address] Sep, [facility] [address] [facility] [id number] [address] [place] [id number] Aug, [facility] [address] [facility] [id number] [address] [place] [address] Aug, [facility] [address] [id number] [address] [place] [address] Aug, Abdominal pain, left lower q uadrant R10.32 ; Neuropathy G62.9 and Anxiety F41.9 [facility] [address] [place] [address] Jul, [facility] [address] [id number] [address] [place] [address] Jul, [facility] [address] [id number] [address] [place] [address] Jul, [facility] [address] [id number] [address] [place] [address] Jul, [facility] [address] [id number] [address] [place] [address] Jul, [facility] [address] [facility] [id number] [address] [place] [id number] Jun, [facility] [address] [id number] [address] [place] [address] May, [facility] [address] [id number] [address] [place] [address] May, [facility] [address] [id number] [address] [place] [address] Apr, [facility] [address] [id number] [address] [place] [address] Apr, Muscle spasms of both lower extremities M62.838 and Cellulitis, unspecified cellulitis site L03.90 [facility] [address] [id number] [address] [place] [address] Apr, [facility] [address] [facility] [id number] [address] [place] [address] Mar, Generalized abdominal pain R 10.84 [facility] [address] [id number] [address] [place] [address] Mar, [facility] [address] [id number] [address] [place] [address], [place] [address] 14 Mar, 2015 [facility] [address] [id number] [address] [place] [address] 14 Mar, 2016 [facility] [address] [id number] [address] [place] [id number] 13 Mar, 2015 [facility] [address] [id number] [address] [place] [address], [place] [address] 12 Mar, 2016 [facility] [address] [id number] [address] [place] [address], [place] [address] 09 Mar, 2016 [facility] [address] [id number] [address] [place] [address], [place] [address] 06 Mar, 2016 [facility] [address] [id number] [address] [place] [address] 17 Feb, 2016 Other specified diseases of anus and rectum K62.89 [facility] [address] [id number] [address] [place] [address] Feb, [facility] [address] [id number] [address] [place] [address] Feb, Dizziness R42 [facility] [address] [id number] [address] [place] [address] Feb, [facility] [address] [id number] [address] [place] [address] Jan, Polyneuropathy G62.9 [facility] [address] [id number] [address] [place] [address] Jan, Other specified diseases of anus and rectum K62.89 [facility] [address] [id number] [address] [place] [address] Jan, [facility] [address] [id number] [address] [place] [phone] 16 Jan, 2016 [facility] [address] [id number] [address] [place] [address] Jan, [facility] [address] [id number] [address] [place] [address], [place] [address] Jan, Dizziness R42 [facility] [address] [id number] [address] [place] [address], [place] [address] Dec, [facility] [address] [id number] [address] [place] [address], [place] [address] Dec, [facility] [address] [id number] [address] [place] [address], [place] [address] Dec, [facility] [address] [id number] [address] [place] [address], [place] [address] Dec, Dizziness R42 [facility] [address] [id number] [address] [place] [address], [place] [address] November, [facility] [address] [id number] [address] [place] [address], [place] [address] Oct, [facility] [address] [id number] [address] [place] [address], [place] [address] Oct, [facility] [address] [id number] [address] [place] [address], [place] [address] Oct, [facility] [address] [id number] [address] [place] [address], [place] [address] Oct, [facility] [address] [id number] [address] [place] [address], [place] [address] Sep, [facility] [address] [id number] [address] [place] [address], [place] [address] 14 Sep, 2015 Primary insomnia F51.01 [facility] [address] [id number] [address] [place] [address], [place] [address] Sep, Primary insomnia F51.01 [facility] [address] [id number] [address] [place] [address], [place] [address] Sep, [facility] [address] [id number] [address] [place] [address] Aug, [facility] [address] [address] Aug, [facility] [id number] [place] [address] Aug, Primary insomnia F51.01 ; Mo od disorder F39 ; Nausea and vomiting, unspecified intactability, vomiting of unspecified type R11.2 and Diarrhea R19.7 [facility] [address] [address] Aug, [facility] [address] [address] Aug, Folliculitis L73.9 [facility] [address] [id number] Aug, [facility] [address] [address] Aug, [facility] [address] [address] Jul, Folliculitis L73.9 [facility] [address] [id number] Jul, [facility] [address] [address] Jun, Folliculitis L73.9 [facility] [address] [id number] [address] [place] [address] Jun, [facility] [address] [address] May, Polyneuropathy G62.9 [facility] [address] [id number] [address] [place] [address] May, Other specified diseases of anus and rectum K62.89 [facility] [address] [address] May, [facility] [address] [id number] [address] [place] [address] May, Primary insomnia F51.01 [facility] [address] [id number] [address] [place] [address] May, [facility] [address] [id number] [address] [place] [address] May, [facility] [address] [id number] [address] [place] [address] Apr, Other specified diseases of anus and rectum K62.89 ; Chronic fatigue R53.82 ; Urinary tract infection, site not specified N39.0 and Enterococcus as the cause of diseases classified elsewhere B95.2 [facility] [address] [id number] [address] [place] [address] 16 Apr, 2015 [facility] [address] [id number] [address] [place] [id number] Apr, [facility] [address] [id number] [address] [place] [id number] Apr, Unspecified inflammatory and toxic neuropathy 357.9 [facility] [address] [id number] [address] [place] [id number] 05 Apr, 2015 [facility] [address] [id number] [address] [place] [phone] Mar, [facility] [address] [id number] [address] [place] [phone] 23 Mar, 2015 [facility] [address] [id number] [address] [place] [phone] 17 Mar, 2015 [facility] [address] [facility] [id number] [address] [place] [id number] 14 Mar, 2015 Unspecified inflammatory and toxic neuropathy 357.9 [facility] [address] [id number] [address] [place] [phone] 12 Mar, 2015 [facility] [address] [id number] [address] [place] [phone] Mar, [facility] [address] [id number] [address] [place] [id number] Mar, [facility] [address] [id number] [address] [place] [id number] Mar, [facility] [address] [id number] [address] [place] [id number] Feb, [facility] [address] [id number] [address] [place] [id number] Feb, [facility] [address] [id number] [address] [place] [id number] Feb, [facility] [address] [id number] [address] [place] [id number] Jan, [facility] [address] [id number] [address] [place] [id number] Jan, Nausea 787.02 and Neuropathy 355.9 [facility] [address] [id number] [address] [place] [phone] Jan, [facility] [address] [id number] [address] [place] [phone] Jan, [facility] [address] [id number] [address] [place] [phone] Jan, [facility] [address] [id number] [address] [place] [id number] 10 Jan, 2015 Dental examination V72.2 [facility] [address] [id number] [address] [place] [id number] Jan, [facility] [address] [address] [id number] [address] [place] [address] Dec, [facility] [address] [id number] [address] [place] [address] Dec, [facility] [address] [id number] [address] [place] [address], [place] [address] Dec, Neuropathy 355.9 [facility] [address] [id number] [address] [place] [address], [place] [address] November, [facility] [address] [id number] [address] [place] [address], [place] [address] November, [facility] [address] [id number] [address] [place] [address], [place] [address] November, [facility] [address] [id number] [address] [place] [address], [place] [address] Oct, [facility] [address] [id number] [address] [place] [address], [place] [address] Oct, [facility] [address] [id number] [address] [place] [address], [place] [address] Sep, [facility] [address] [id number] [address] [place] [address], [place] [address] Sep, [facility] [address] [id number] [address] [place] [address], [place] [address] Sep, [facility] [address] [id number] [address] [place] [address], [place] [address] Sep, [facility] [address] [id number] [address] [place] [address], [place] [address] Sep, [facility] [address] [id number] [address] [place] [address], [place] [address] Sep, [facility] [address] [id number] [address] [place] [address], [place] [address] Sep, [facility] [address] [id number] [address] [place] [address], [place] [address] Sep, [facility] [address] [id number] [address] [place] [address], [place] [address] Aug, [facility] [address] [id number] [address] [place] [address], [place] [address] Aug, 2014 [facility] [address] [id number] [address] [place] [address], [place] [address] Aug, 2014 [facility] [address] [id number] [address] [place] [address], [place] [address] Aug, 2014 [facility] [address] [id number] [address] [place] [address], [place] [address] Aug, 2014 [facility] [address] [id number] [address] [place] [address], [place] [address] Aug, 2014 [facility] [address] [id number] [address] [place] [address], [place] [address] Aug, 2014 [facility] [address] [id number] [address] [place] [address], [place] [address] Aug, 2014 [facility] [address] [id number] [address] [place] [address], [place] [address] Jul, [facility] [address] [id number] [address] [place] [address], [place] [address] Jul, [facility] [address] [id number] [address] [place] [address], [place] [address] Jun, [facility] [address] [id number] [address] [place] [address], [place] [address] Jun, [facility] [address] [id number] [address] [place] [address], [place] [address] Jun, [facility] [address] [id number] [address] [place] [address], [place] [address] Jun, [facility] [address] [id number] [address] [place] [address], [place] [address] Jun, [facility] [address] [id number] [address] [place] [address], [place] [address] Jun, [facility] [address] [id number] [address] [place] [address], [place] [address] Jun, [facility] [address] [id number] [address] [place] [address], [place] [address] Jun, [facility] [address] [id number] [address] [place] [address], [place] [address] Jun, [facility] [address] [id number] [address] [place] [address], [place] [address] Jun, [facility] [address] [id number] [address] [place] [address], [place] [address] Jun, [facility] [address] [id number] [address] [place] [address], [place] [address] May, [facility] [address] [id number] [address] [place] [address], [place] [address] May, [facility] [address] [id number] [address] [place] [address], [place] [address] May, [facility] [address] [id number] [address] [place] [address], [place] [address] May, [facility] [address] [id number] [address] [place] [address], [place] [address] May, [facility] [address] [id number] [address] [place] [address], [place] [address] May, [facility] [address] [id number] [address] [place] [address], [place] [address] May, [facility] [address] [id number] [address] [place] [address], [place] [address] May, [facility] [address] [id number] [address] [place] [address], [place] [address] May, [facility] [address] [id number] [address] [place] [address], [place] [address] Apr, [facility] [address] [id number] [address] [place] [address], [place] [address] Apr, [facility] [address] [id number] [address] [place] [address], [place] [address] Apr, [facility] [address] [id number] [facility] [place] [address] Apr, [facility] [address] [id number] [address] [place] [address], [place] [address] Apr, [facility] [address] [id number] [address] [place] [address], [place] [address] Mar, [facility] [address] [id number] [address] [place] [address], [place] [address] Mar, [facility] [address] [id number] [address] [place] [address], [place] [address] Feb, [facility] [address] [id number] [address] [place] [address], [place] [address] Feb, [facility] [address] [id number] [address] [place] [address], [place] [address] Feb, [facility] [address] [id number] [address] [place] [address], [place] [address] Feb, [facility] [address] [id number] [address] [place] [address], [place] [address] Feb, [facility] [address] [id number] [address] [place] [address], [place] [address] Feb, [facility] [address] [id number] [address] [place] [address], [place] [address] Jan, [facility] [address] [id number] [address] [place] [address], [place] [address] Jan, [facility] [address] [id number] [address] [place] [address], [place] [address] Jan, [facility] [address] [id number] [address] [place] [address], [place] [address] Jan, [facility] [address] [id number] [address] [place] [address], [place] [address] Jan, [facility] [address] [id number] [facility] [place] [address] Jan, [facility] [address] [id number] [facility] [place] [address] Jan, [facility] [address] [id number] [facility] [place] [address] Jan, [facility] [address] [id number] [address] [place] [address], [place] [address] Jan, [facility] [address] [id number] [address] [place] [address], [place] [address] Jan, [facility] [address] [id number] [address] [place] [address], [place] [address] Jan, [facility] [address] [id number] [address] [place] [address], [place] [address] Dec, [facility] [address] [id number] [address] [place] [address], [place] [address] Dec, [facility] [address] [id number] [address] [place] [address], [place] [address] Dec, [facility] [address] [id number] [address] [place] [address], [place] [address] Dec, [facility] [address] [id number] [address] [place] [address], [place] [address] Dec, [facility] [address] [id number] [address] [place] [address], [place] [address] Dec, [facility] [address] [id number] [address] [place] [address], [place] [address] November, [facility] [address] [id number] [address] [place] [address], [place] [address] November, [facility] [address] [id number] [address] [place] [address], [place] [address] November, [facility] [address] [id number] [address] [place] [address], [place] [address] November, [facility] [address] [id number] [address] [place] [address], [place] [address] November, [facility] [address] [id number] [address] [place] [address], [place] [address] November, [facility] [address] [id number] [address] [place] [address], [place] [address] Oct, [facility] [address] [id number] [address] [place] [address], [place] [address] Oct, [facility] [address] [id number] [address] [place] [address], [place] [address] Oct, [facility] [address] [id number] [address] [place] [address], [place] [address] Oct, [facility] [address] [id number] [address] [place] [address], [place] [address] Sep, [facility] [address] [id number] [address] [place] [address], [place] [address] Sep, [facility] [address] [id number] [address] [place] [address], [place] [address] Sep, [facility] [address] [id number] [address] [place] [address], [place] [address] Sep, [facility] [address] [id number] [address] [place] [address], [place] [address] Sep, [facility] [address] [id number] [address] [place] [address], [place] [address] Aug, [facility] [address] [id number] [address] [place] [address], [place] [address] Aug, [facility] [address] [id number] [address] [place] [address], [place] [address] Aug, [facility] [address] [id number] [address] [place] [address], [place] [address] Aug, [facility] [address] [id number] [address] [place] [address], [place] [address] 14 Aug, 2013 [facility] [address] [place] [id number] May, [facility] [address] [id number] [address] [place] [address], [place] [address] May, [facility] [address] [id number] [address] [place] [address], [place] [address] May, [facility] [address] [id number] [address] [place] [address], [place] [address] May, [facility] [address] [id number] [address] [place] [address], [place] [address] May, [facility] [address] [id number] [address] [place] [address], [place] [address] Apr, [facility] [address] [id number] [address] [place] [address], [place] [address] Apr, [facility] [address] [id number] [address] [place] [address], [place] [address] Apr, [facility] [address] [id number] [address] [place] [address], [place] [address] Apr, [facility] [address] [id number] [address] [place] [address], [place] [address] Apr, [facility] [address] [id number] [address] [place] [address], [place] [address] Apr, [facility] [address] [id number] [address] [place] [address], [place] [address] Apr, [facility] [address] [id number] [address] [place] [address], [place] [address] Mar, [facility] [address] [id number] [address] [place] [address], [place] [address] Mar, [facility] [address] [id number] [address] [place] [address], [place] [address] Mar, [facility] [address] [id number] [address] [place] [address], [place] [address] 16 Mar, 2013 [facility] [address] [id number] [address] [place] [address], [place] [address] 12 Mar, 2013 [facility] [address] [id number] [address] [place] [address], [place] [address] Mar, [facility] [address] [id number] [address] [place] [address], [place] [address] Feb, [facility] [address] [id number] [address] [place] [address], [place] [address] Feb, [facility] [address] [id number] [address] [place] [address], [place] [address] Feb, [facility] [address] [id number] [address] [place] [address], [place] [address] Feb, [facility] [address] [id number] [address] [place] [address], [place] [address] Feb, [facility] [address] [id number] [address] [place] [address], [place] [address] Feb, [facility] [address] [id number] [address] [place] [address], [place] [address] Jan, [facility] [address] [id number] [address] [place] [address], [place] [address] Dec, [facility] [address] [id number] [address] [place] [address], [place] [address] Dec, [facility] [address] [id number] [address] [place] [address], [place] [address] Dec, [facility] [address] [id number] [address] [place] [address], [place] [address] Dec, [facility] [address] [id number] [address] [place] [address], [place] [address] Dec, [facility] [address] [id number] [address] [place] [address], [place] [address] Dec, [facility] [address] [id number] [facility] [place] [address] Dec, [facility] [address] [id number] [address] [place] [address], [place] [address] Dec, [facility] [address] [id number] [address] [place] [address], [place] [address] Dec, [facility] [address] [id number] [address] [place] [address], [place] [address] November, [facility] [address] [id number] [address] [place] [address], [place] [address] November, [facility] [address] [id number] [address] [place] [address], [place] [address] Oct, [facility] [address] [id number] [address] [place] [address], [place] [address] Sep, [facility] [address] [id number] [address] [place] [address], [place] [address] Sep, [facility] [address] [id number] [address] [place] [address], [place] [address] Sep, [facility] [address] [id number] [address] [place] [address], [place] [address] Sep, [facility] [address] [id number] [address] [place] [address], [place] [address] Aug, [facility] [address] [id number] [address] [place] [address], [place] [address] Aug, [facility] [address] [id number] [address] [place] [address], [place] [address] Jul, [facility] [address] [id number] [address] [place] [address], [place] [address] Jul, [facility] [address] [id number] [address] [place] [address], [place] [address] Jul, [facility] [address] [id number] [address] [address] Sep, [facility] [address] [facility] [id number] [address] [place] [address] Sep, [facility] [address] [facility] [id number] [address] [place] [address] 10 Sep, 2011 IMMUNIZATIONS Vaccine Route Administration Date Status TORADOL (IM) 60 MG/2ML (UP TO 15 MG) IM Intramuscular Jun 20 Administered SOCIAL HISTORY Never Assessed REASON FOR VISIT Pain management (chronic), PT reports he was in [facility] 06/09 for four days due to a n infection. -Quintin LIRA PLAN OF CARE VITAL SIGNS Height 67 in 2018-06-20 Weight 201 lbs 2018-06-20 Temperature 97.7 degrees Fahrenheit 2018-06-20 Heart Rate 86 bpm 2018-06-20 Respiratory Rate 20 2018-06-20 Oximetry 97 % 2018-06-20 BMI 31.48 kg/m2 2018-06-20 Blood pressure systolic 130 mmHg 2018-06-20 Blood pressure diastolic 72 mmHg 2018-06-20 MEDICATIONS Medication Instructions Dosage Frequency Start Date End Date Duration S tatus Acyclovir 5 % Externally Five times a day 1 application to affected area Dec, Active Acyclovir 400 mg Orally Twice a day 1 tablet 12h Feb, Active Incontinence Brief Large 1 as directed Aug, Active Wheelchair 1 as directed Dec, Ac tive Promethazine HCl 25 TAKE ONE TABLET BY M OUTH EVERY 6 HOURS NEEDED FOR NAUSEA AND VOMITING 30 days Active Oxycodone HCl 30 MG Orally 2 times a day 1 tablet as needed 12h May, 28 days Active Cyclobenzaprine HCl 10 MG Orally 2 times a day 1 tablet as needed 1 2h Jun, Active Amlodipine Besylate 10 mg Orally Once a day 1 tablet 24h Feb, 8 Active Gabapentin 600 mg 1 tablet 8h Aug, Active PredniSONE 20 MG Orally Once a day 2 tablets 24h Jun, 05 days Active Lyrica 150 MG Orally 3 times a day 1 capsule 8h Feb, 28 days Active Blood Pressure Monitor 1 as directed Feb, Active Percocet 10-325 MG Orally every 4 hrs 1 tablet 4h May, 28 days Active Zoloft 100 mg Orally Once a day 1 tablet 24h Active RESULTS No Results PROCEDURES Procedure Date Ordered Result Body Site [facility] VISIT ESTABLISHED PATIENT Jun 20, 2018 THER/PROPH/DIAG INJ, SC/IM Jun 20, 2018 TORADOL (IM) 60 MG/2ML (UP TO 15 MG) Jun 20, 2018 INSTRUCTIONS MEDICATIONS ADMINISTERED No Known Medications [...] bowel obstruction, Dehydration -[facility] 01/01/17 Hospitalization History [facility]- UTI/Sepsis 01/18/2018 Hospitalization History [facility] - infection 4 days 05/2018
--- OUTSIDE RECORDS SUMMARY | 2020-01-14 23:14 | XMS REPORT ---
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 Name Role Phone LINDA BENTLEY Unavailable PROBLEMS Type Condition ICD9-CM Code [id number] Code Onset Dates Condition S tatus SNOMED Code Problem Abdominal pain, left lower quadrant R10.32 Active 361063964 Problem Mood disorder F39 Active 836981 05 Problem Hypertension, benign I10 Active 18862576 Problem Chronic pain syndrome G89.4 Active 235609827 Problem Attention to urostomy Z43.6 Active 193653182 Problem Anxiety F41.9 Active 61335653 Problem Neuropathy G62.9 Active 163469440 Problem Malignant neoplasm of colon, unspecified part of colon C18.9 Active 997342559 Problem Polyneuropathy G62.9 Active 37963 000 Problem Incontinence of feces, unspecified fecal incontinence type R15.9 Active 65315225 Problem Chronic fatigue, unspecified R53.82 A ctive 328140869 Problem Hydronephrosis with ureteral stricture, not else where classified N13.1 Active 20995171 Problem Primary insomnia F51.01 Active 193 189787 Problem 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 656823831 ALLERGIES No Information ENCOUNTERS Encounter Location Date Diagnosis [facility] [address] [facility] [id number] [address] [place] [address] Jun, [facility] [address] [facility] [id number] [address] [place] [address] May, Neuropathy G62.9 [facility] [address] [facility] [id number] [address] [place] [address] May, [facility] [address] [facility] [id number] [address] [place] [address] May, Neuropathy G62.9 and Hyperte nsion, benign I10 [facility] [address] [facility] [id number] [address] [place] [address] 09 Apr, 2018 Polyneuropathy G62.9 and Hyp ertension, benign I10 [facility] [address] [facility] [id number] [address] [place] [address] 17 Mar, 2018 Chronic pain syndrome G89.4 and Hypertension, benign I10 [facility] [address] [facility] [id number] [address] [place] [address] 11 Mar, 2018 Polyneuropathy G62.9 and Hyp ertension, benign I10 [facility] [address] [facility] [id number] [address] [place] [address] Feb, [facility] [address] [facility] [id number] [address] [place] [address] Feb, Hypertension, benign I10 [facility] [address] [facility] [id number] [address] [place] [address] Feb, Hypertension, benign I10 ; P olyneuropathy G62.9 and Primary insomnia F51.01 [facility] [address] [facility] [id number] [address] [place] [address] Jan, Hypertension, benign I10 and Polyneuropathy G62.9 [facility] [address] [facility] [id number] [address] [place] [address] Jan, Hypertension, benign I10 and Neuropathy G62.9 [facility] [address] [facility] [id number] [address] [place] [address] Jan, [facility] [address] [facility] [id number] [address] [place] [address] Dec, Polyneuropathy G62.9 [facility] [address] [facility] [id number] [address] [place] [address] Dec, Mood disorder F39 [facility] [address] [facility] [id number] [address] [place] [address] November, Polyneuropathy G62.9 [facility] [address] [facility] [id number] [address] [place] [address] November, Medicare annual wellness vis it, initial Z00.00 [facility] [address] [facility] [id number] [address] [place] [address] November, Mood disorder F39 [facility] [address] [facility] [id number] [address] [place] [address] Oct, Polyneuropathy G62.9 [facility] [address] [facility] [id number] [address] [place] [address] Oct, [facility] [address] [facility] [id number] [address] [place] [address] Oct, [facility] [address] [facility] [id number] [address] [place] [address] Oct, Mood disorder F39 ; Attentio n to urostomy Z43.6 ; Chronic pain syndrome G89.4 and Polyneuropathy G62.9 [facility] [address] [facility] [id number] [address] [place] [address] Sep, Polyneuropathy G62.9 [facility] [address] [facility] [id number] [address] [place] [address] Sep, [facility] [address] [facility] [id number] [address] [place] [address] Sep, Polyneuropathy G62.9 [facility] [address] [facility] [id number] [address] [place] [address] Aug, Polyneuropathy G62.9 [facility] [address] [facility] [id number] [address] [place] [address] Aug, Malignant neoplasm of colon, unspecified part of colon C18.9 and Polyneuropathy G62.9 [facility] [address] [facility] [id number] [address] [place] [address] Aug, Neuropathy G62.9 and Polyneu ropathy G62.9 [facility] [address] [facility] [id number] [address] [place] [address] 31 Jul, 2017 Encounter for drug screening Z02.83 [facility] [address] [facility] [id number] [address] [place] [address] Jul, Polyneuropathy G62.9 [facility] [address] [facility] [id number] [address] [place] [address] Jul, [facility] [address] [facility] [id number] [address] [place] [address] Jul, Neuropathy G62.9 and Anxiety F41.9 [facility] [address] [facility] [id number] [address] [place] [address] Jul, [facility] [address] [facility] [id number] [address] [place] [address] Jul, [facility] [address] [facility] [id number] [address] [place] [address] Jul, [facility] [address] [facility] [id number] [address] [place] [address] Jul, Polyneuropathy G62.9 [facility] [address] [facility] [id number] [address] [place] [address] Jul, [facility] [address] [facility] [id number] [address] [place] [address] Jun, [facility] [address] [facility] [id number] [address] [place] [address] Jun, [facility] [address] [facility] [id number] [address] [place] [address] Jun, [facility] [address] [id number] [place] [address] 07 Jun, 2017 Encounter for dental examina tion Z01.20 [facility] [address] [facility] [id number] [address] [place] [address] Jun, Polyneuropathy G62.9 and Anx iety F41.9 [facility] [address] [facility] [id number] [address] [place] [address] Jun, [facility] [address] [id number] [address] [address] May, Dental examination Z01.20 [facility] [address] [facility] [id number] [address] [place] [address] May, Polyneuropathy G62.9 [facility] [address] [facility] [id number] [address] [place] [address] Apr, Polyneuropathy G62.9 [facility] [address] [place] [id number] [address] [place] [address] Apr, Polyneuropathy G62.9 [facility] [address] [place] [id number] [address] [place] [address] Apr, Hypertension, benign I10 ; P olyneuropathy G62.9 and Anxiety F41.9 [facility] [address] [place] [id number] [address] [place] [address] Apr, Primary insomnia F51.01 and Polyneuropathy G62.9 [facility] [address] [place] [id number] [address] [place] [address] Apr, Primary insomnia F51.01 and Polyneuropathy G62.9 [facility] [address] [place] [id number] [address] [place] [address] Mar, Primary insomnia F51.01 [facility] [address] [facility] [id number] [address] [place] [address] Mar, [facility] [address] [place] [id number] [address] [place] [address] Mar, Polyneuropathy G62.9 [facility] [address] [facility] [id number] [address] [place] [address] Feb, Primary insomnia F51.01 [facility] [address] [place] [id number] [address] [place] [address], [place] [address] Feb, [facility] [address] [id number] [address] [place] [address], [place] [address] Feb, [facility] [address] [facility] [id number] [address] [place] [address], [place] [address] Feb, Polyneuropathy G62.9 [facility] [address] [facility] [id number] [address] [place] [address], [place] [address] Feb, Primary insomnia F51.01 [facility] [address] [id number] [address] [place] [address], [place] [address] Jan, [facility] [address] [id number] [address] [place] [address], [place] [address] Jan, [facility] [address] [facility] [id number] [address] [place] [address], [place] [address] Dec, [facility] [address] [facility] [id number] [address] [place] [address] Dec, Primary insomnia F51.01 [facility] [address] [id number] [address] [place] [address], [place] [address] Dec, Primary insomnia F51.01 [facility] [address] [id number] [address] [place] [address], [place] [address] Dec, [facility] [address] [facility] [id number] [address] [place] [address] Dec, [facility] [address] [facility] [id number] [address] [place] [address] Dec, [facility] [address] [id number] [address] [place] [address] Dec, [facility] [address] [facility] [id number] [address] [place] [address] November, Primary insomnia F51.01 and Polyneuropathy G62.9 [facility] [address] [facility] [id number] [address] [place] [address] November, [facility] [address] [id number] [address] [place] [address] November, Abdominal pain, left lower q uadrant R10.32 [facility] [address] [id number] [address] [place] [address] November, [facility] [address] [id number] [address] [place] [address] Oct, [facility] [address] [id number] [address] [place] [address] Oct, Abdominal pain, left lower q uadrant R10.32 ; 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 and Neuropathy G62.9 [facility] [address] [id number] [address] [place] [address] Oct, [facility] [address] [facility] [id number] [address] [place] [address] Sep, [facility] [id number] [id number] Sep, [facility] [address] [id number] [address] [place] [address] Sep, [facility] [address] [facility] [id number] [address] [place] [address] Aug, [facility] [address] [facility] [id number] [address] [place] [address] Aug, [facility] [address] [id number] [address] [place] [address] Aug, Abdominal pain, left lower q uadrant R10.32 ; Neuropathy G62.9 and Anxiety F41.9 [facility] [address] [place] [address] Jul, [facility] [address] [facility] [id number] [address] [place] [address] Jul, [facility] [address] [id number] [address] [place] [address] Jul, [facility] [address] [id number] [address] [place] [address] Jul, [facility] [address] [id number] [address] [place] [address] Jul, [facility] [address] [id number] [address] [place] [address] Jun, [facility] [address] [id number] [address] [place] [address] May, [facility] [address] [id number] [address] [place] [address] May, [facility] [address] [id number] [address] [place] [address] Apr, [facility] [address] [id number] [address] [place] [address] Apr, Muscle spasms of both lower extremities M62.838 and Cellulitis, unspecified cellulitis site L03.90 [facility] [address] [id number] [address] [place] [address] Apr, [facility] [address] [id number] [address] [place] [address] 23 Mar, 2016 Generalized abdominal pain R 10.84 [facility] [address] [id number] [address] [place] [address] 20 Mar, 2016 [facility] [address] [id number] [address] [place] [address] 14 Mar, 2016 [facility] [address] [id number] [address] [place] [address] 14 Mar, 2016 [facility] [address] [id number] [address] [place] [address] 13 Mar, 2016 [facility] [address] [id number] [address] [place] [address] 12 Mar, 2016 [facility] [address] [id number] [address] [place] [address] Mar, [facility] [address] [id number] [address] [place] [address] Mar, [facility] [address] [id number] [address] [place] [address] Feb, Other specified diseases of anus and rectum K62.89 [facility] [address] [id number] [address] [place] [address] Feb, [facility] [address] [id number] [address] [place] [address] Feb, Dizziness R42 [facility] [address] [id number] [address] [place] [address] Feb, [facility] [address] [id number] [address] [place] [address] Jan, Polyneuropathy G62.9 [facility] [address] [id number] [address] [place] [address] Jan, Other specified diseases of anus and rectum K62.89 [facility] [address] [id number] [address] [place] [address] Jan, [facility] [address] [id number] [address] [place] [address] Jan, [facility] [address] [id number] [address] [place] [address] Jan, [facility] [address] [id number] [address] [place] [address] Jan, Dizziness R42 [facility] [address] [id number] [address] [place] [address] Dec, [facility] [address] [id number] [address] [place] [address] Dec, [facility] [address] [id number] [address] [place] [address] Dec, [facility] [address] [facility] [id number] [address] [place] [address] Dec, Dizziness R42 [facility] [address] [facility] [id number] [address] [place] [address] November, [facility] [address] [facility] [id number] [address] [place] [address] Oct, [facility] [address] [facility] [id number] [address] [place] [address] Oct, [facility] [address] [facility] [id number] [address] [place] [address] Oct, [facility] [address] [facility] [id number] [address] [place] [address] Oct, [facility] [address] [place] [id number] [address] [place] [address] Sep, [facility] [address] [facility] [id number] [address] [place] [address] Sep, Primary insomnia F51.01 [facility] [address] [place] [id number] [address] [place] [address] Sep, Primary insomnia F51.01 [facility] [address] [place] [id number] [address] [place] [address] Sep, [facility] [address] [facility] [id number] [address] [place] [address] Aug, [facility] [address] [facility] [id number] [address] [place] [address] Aug, [facility] [address] [facility] [id number] [address] [place] [address] Aug, Primary insomnia F51.01 ; Mo od disorder F39 ; Nausea and vomiting, unspecified intactability, vomiting of unspecified type R11.2 and Diarrhea R19.7 [facility] [address] [facility] [id number] [address] [place] [address] 15 Aug, 2015 [facility] [address] [id number] [address] [place] [address] 05 Aug, 2015 Folliculitis L73.9 [facility] [address] [facility] [id number] [address] [place] [address] Aug, [facility] [address] [facility] [id number] [address] [place] [address] Aug, [facility] [address] [facility] [id number] [address] [place] [address] Jul, Folliculitis L73.9 [facility] [address] [facility] [id number] [address] [place] [address] Jul, [facility] [address] [facility] [id number] [address] [place] [address] Jun, Folliculitis L73.9 [facility] [address] [facility] [id number] [address] [place] [address] Jun, [facility] [address] [facility] [id number] [address] [place] [address] May, Polyneuropathy G62.9 [facility] [address] [facility] [id number] [address] [place] [id number] May, Other specified diseases of anus and rectum K62.89 [facility] [address] [facility] [id number] [address] [place] [id number] May, [facility] [address] [facility] [id number] [address] [place] [id number] May, Primary insomnia F51.01 [facility] [address] [facility] [id number] [address] [place] [id number] May, [facility] [address] [facility] [id number] [address] [place] [id number] May, [facility] [address] [id number] [address] [place] [address] Apr, Other specified diseases of anus and rectum K62.89 ; Chronic fatigue R53.82 ; Urinary tract infection, site not specified N39.0 and Enterococcus as the cause of diseases classified elsewhere B95.2 [facility] [address] [id number] [address] [place] [id number] 16 Apr, 2015 [facility] [address] [id number] [address] [place] [phone] 15 Apr, 2015 [facility] [address] [id number] [address] [place] [id number] 14 Apr, 2015 Unspecified inflammatory and toxic neuropathy 357.9 [facility] [address] [id number] [address] [place] [id number] 05 Apr, 2015 [facility] [address] [id number] [address] [place] [id number] 26 Mar, 2015 [facility] [address] [id number] [address] [place] [phone] 23 Mar, 2015 [facility] [address] [id number] [address] [place] [id number] 17 Mar, 2015 [facility] [address] [id number] [address] [place] [phone] 14 Mar, 2015 Unspecified inflammatory and toxic neuropathy 357.9 [facility] [address] [id number] [address] [place] [id number] 12 Mar, 2015 [facility] [address] [id number] [address] [place] [id number] 11 Mar, 2015 [facility] [address] [id number] [address] [place] [phone] 11 Mar, 2015 [facility] [address] [id number] [address] [place] [id number] 10 Mar, 2015 [facility] [address] [id number] [address] [place] [id number] Feb, [facility] [address] [id number] [address] [place] [id number] Feb, [facility] [address] [id number] [address] [place] [phone] Feb, [facility] [address] [id number] [address] [place] [phone] Jan, [facility] [address] [id number] [address] [place] [id number] Jan, Nausea 787.02 and Neuropathy 355.9 [facility] [address] [id number] [address] [place] [id number] Jan, [facility] [address] [id number] [address] [place] [phone] Jan, [facility] [address] [id number] [address] [place] [id number] Jan, [facility] [address] [id number] [address] [place] [id number] Jan, Dental examination V72.2 [facility] [address] [id number] [address] [place] [phone] Jan, [facility] [address] [id number] [address] [place] [id number] Dec, [facility] [address] [id number] [address] [place] [id number] Dec, [facility] [address] [id number] [address] [place] [id number] Dec, Neuropathy [facility] [facility] [address] [id number] [address] [place] [address] November, [facility] [address] [id number] [address] [place] [address] November, [facility] [address] [id number] [address] [place] [address] November, [facility] [address] [id number] [address] [place] [address], [place] [address] 14 Oct, 2014 [facility] [address] [id number] [address] [place] [address], [place] [address] 13 Oct, 2014 [facility] [address] [id number] [address] [place] [address], [place] [address] Sep, [facility] [address] [id number] [address] [place] [address], [place] [address] Sep, [facility] [address] [id number] [address] [place] [address], [place] [address] Sep, [facility] [address] [id number] [address] [place] [address], [place] [address] Sep, [facility] [address] [id number] [address] [place] [address], [place] [address] Sep, [facility] [address] [id number] [address] [place] [address], [place] [address] Sep, [facility] [address] [id number] [address] [place] [address], [place] [address] Sep, [facility] [address] [id number] [address] [place] [address], [place] [address] Sep, [facility] [address] [id number] [address] [place] [address], [place] [address] Aug, [facility] [address] [id number] [address] [place] [address], [place] [address] Aug, [facility] [address] [id number] [address] [place] [address], [place] [address] Aug, [facility] [address] [id number] [address] [place] [address], [place] [address] Aug, [facility] [address] [id number] [address] [place] [address], [place] [address] Aug, [facility] [address] [id number] [address] [place] [address], [place] [address] Aug, [facility] [address] [id number] [address] [place] [address], [place] [address] Aug, [facility] [address] [id number] [address] [place] [address], [place] [address] Aug, [facility] [address] [id number] [address] [place] [address], [place] [address] Jul, [facility] [address] [id number] [address] [place] [address], [place] [address] Jul, [facility] [address] [id number] [address] [place] [address], [place] [address] Jun, [facility] [address] [id number] [address] [place] [address], [place] [address] Jun, [facility] [address] [id number] [address] [place] [address], [place] [address] Jun, [facility] [address] [id number] [address] [place] [address], [place] [address] Jun, [facility] [address] [id number] [address] [place] [address], [place] [address] Jun, [facility] [address] [id number] [address] [place] [address], [place] [address] Jun, [facility] [address] [id number] [address] [place] [address], [place] [address] Jun, [facility] [address] [id number] [address] [place] [address], [place] [address] Jun, [facility] [address] [id number] [address] [place] [address], [place] [address] Jun, [facility] [address] [id number] [address] [place] [address], [place] [address] Jun, [facility] [address] [id number] [address] [place] [address], [place] [address] Jun, [facility] [address] [id number] [address] [place] [address], [place] [address] May, [facility] [address] [id number] [address] [place] [address], [place] [address] May, [facility] [address] [id number] [address] [place] [address], [place] [address] May, [facility] [address] [id number] [address] [place] [address], [place] [address] May, [facility] [address] [id number] [address] [place] [address], [place] [address] May, [facility] [address] [id number] [address] [place] [address], [place] [address] May, [facility] [address] [id number] [address] [place] [address], [place] [address] May, [facility] [address] [id number] [address] [place] [address], [place] [address] May, [facility] [address] [id number] [address] [place] [address], [place] [address] May, [facility] [address] [id number] [address] [place] [address], [place] [address] Apr, [facility] [address] [id number] [address] [place] [address], [place] [address] Apr, [facility] [address] [id number] [address] [place] [address], [place] [address] Apr, [facility] [address] [id number] [address] [place] [address], [place] [address] Apr, [facility] [address] [id number] [address] [place] [address], [place] [address] 15 Apr, 2014 [facility] [address] [id number] [address] [place] [address], [place] [address] 22 Mar, 2014 [facility] [address] [id number] [address] [place] [address], [place] [address] Mar, [facility] [address] [id number] [facility] [address] Feb, [facility] [address] [id number] [facility] [address] Feb, [facility] [address] [id number] [facility] [address] Feb, [facility] [address] [id number] [address] [place] [address], [place] [address] Feb, [facility] [address] [id number] [facility] [address] Feb, [facility] [address] [id number] [address] [place] [address], [place] [address] Feb, [facility] [address] [id number] [address] [place] [address], [place] [address] Jan, [facility] [address] [id number] [address] [place] [address], [place] [address] Jan, [facility] [address] [id number] [address] [place] [address], [place] [address] Jan, [facility] [address] [id number] [address] [place] [address], [place] [address] Jan, [facility] [address] [id number] [address] [place] [address], [place] [address] Jan, [facility] [address] [id number] [address] [place] [address], [place] [address] Jan, [facility] [address] [id number] [address] [place] [address], [place] [address] Jan, [facility] [address] [id number] [address] [place] [address], [place] [address] Jan, [facility] [address] [id number] [address] [place] [address], [place] [address] Jan, [facility] [address] [id number] [facility] [address] Jan, [facility] [address] [id number] [address] [place] [address], [place] [address] Jan, [facility] [address] [id number] [address] [place] [address], [place] [address] Dec, [facility] [address] [id number] [address] [place] [address], [place] [address] Dec, [facility] [address] [id number] [address] [place] [address], [place] [address] Dec, [facility] [address] [id number] [address] [place] [address], [place] [address] Dec, [facility] [address] [id number] [address] [place] [address], [place] [address] Dec, [facility] [address] [id number] [address] [place] [address], [place] [address] Dec, [facility] [address] [id number] [address] [place] [address], [place] [address] November, [facility] [address] [id number] [address] [place] [address], [place] [address] November, [facility] [address] [id number] [address] [place] [address], [place] [address] November, [facility] [address] [id number] [address] [place] [address], [place] [address] November, [facility] [address] [id number] [address] [place] [address], [place] [address] November, [facility] [address] [id number] [address] [place] [address], [place] [address] November, [facility] [address] [id number] [address] [place] [address], [place] [address] Oct, [facility] [address] [id number] [address] [place] [address], [place] [address] Oct, [facility] [address] [id number] [address] [place] [address], [place] [address] Oct, [facility] [address] [id number] [address] [place] [address], [place] [address] Oct, [facility] [address] [id number] [address] [place] [address], [place] [address] Sep, [facility] [address] [id number] [address] [place] [address], [place] [address] Sep, [facility] [address] [id number] [address] [place] [address], [place] [address] Sep, [facility] [address] [id number] [address] [place] [address], [place] [address] Sep, [facility] [address] [id number] [address] [place] [address], [place] [address] Sep, [facility] [address] [id number] [address] [place] [address], [place] [address] Aug, [facility] [address] [id number] [address] [place] [address], [place] [address] Aug, [facility] [address] [id number] [address] [place] [address], [place] [address] Aug, [facility] [address] [id number] [address] [place] [address], [place] [address] Aug, [facility] [address] [id number] [address] [place] [address], [place] [address] Aug, [facility] [place] [id number] May, [facility] [address] [id number] [address] [place] [address], [place] [address] May, [facility] [address] [id number] [address] [place] [address], [place] [address] May, [facility] [address] [id number] [address] [place] [address], [place] [address] May, [facility] [address] [id number] [address] [place] [address], [place] [address] May, [facility] [address] [id number] [address] [place] [address], [place] [address] Apr, [facility] [address] [id number] [address] [place] [address], [place] [address] Apr, [facility] [address] [id number] [address] [place] [address], [place] [address] Apr, [facility] [address] [id number] [address] [place] [address], [place] [address] Apr, [facility] [address] [id number] [address] [place] [address], [place] [address] Apr, [facility] [address] [id number] [address] [place] [address], [place] [address] Apr, [facility] [address] [id number] [address] [place] [address], [place] [address] Apr, [facility] [address] [id number] [address] [place] [address], [place] [address] Mar, [facility] [address] [id number] [address] [place] [address], [place] [address] Mar, [facility] [address] [id number] [address] [place] [address], [place] [address] 24 Mar, 2013 [facility] [address] [id number] [address] [place] [address], [place] [address] 16 Mar, 2013 [facility] [address] [id number] [address] [place] [address], [place] [address] 12 Mar, 2013 [facility] [address] [id number] [address] [place] [address], [place] [address] 06 Mar, 2013 [facility] [address] [id number] [address] [place] [address], [place] [address] Feb, [facility] [address] [id number] [address] [place] [address], [place] [address] Feb, [facility] [address] [id number] [address] [place] [address], [place] [address] Feb, [facility] [address] [id number] [address] [place] [address], [place] [address] Feb, [facility] [address] [id number] [address] [place] [address], [place] [address] Feb, [facility] [address] [id number] [address] [place] [address], [place] [address] Feb, [facility] [address] [id number] [address] [place] [address], [place] [address] Jan, [facility] [address] [id number] [address] [place] [address], [place] [address] Dec, [facility] [address] [id number] [address] [place] [address], [place] [address] Dec, [facility] [address] [id number] [address] [place] [address], [place] [address] Dec, [facility] [address] [id number] [address] [place] [address], [place] [address] Dec, [facility] [address] [id number] [address] [place] [address], [place] [address] Dec, [facility] [address] [id number] [address] [place] [address], [place] [address] Dec, [facility] [address] [id number] [address] [place] [address], [place] [address] Dec, [facility] [address] [id number] [address] [place] [address], [place] [address] Dec, [facility] [address] [id number] [address] [place] [address], [place] [address] Dec, [facility] [address] [id number] [address] [place] [address], [place] [address] November, [facility] [address] [id number] [address] [place] [address] November, [facility] [address] [id number] [address] [place] [address] Oct, [facility] [address] [id number] [address] [place] [address] Sep, [facility] [address] [id number] [address] [place] [address] Sep, [facility] [address] [id number] [address] [place] [address] Sep, [facility] [address] [id number] [address] [place] [address] Sep, [facility] [address] [id number] [address] [place] [address] Aug, [facility] [address] [id number] [address] [place] [address] Aug, [facility] [address] [id number] [address] [place] [address] Jul, [facility] [address] [id number] [address] [place] [address] Jul, [facility] [address] [id number] [address] [place] [address] Jul, [facility] [address] [id number] [address] [place] [address] Sep, [facility] [address] [id number] [address] [place] [address] Sep, [facility] [address] [id number] [address] [place] [address] Sep, IMMUNIZATIONS No Known Immunizations SOCIAL HISTORY Never Assessed REASON FOR VISIT Controlled Med Refill PLAN OF CARE VITAL SIGNS MEDICATIONS Medication Instructions Dosage Frequency Start Date End Date Duration S tatus Lyrica 150 MG Orally 3 times a day 1 capsule 8h Feb, 28 days Active Oxycodone HCl 30 MG Orally 2 times a day 1 tablet as needed 12h May, 28 days Active Percocet 10-325 MG Orally every 4 hrs 1 tablet 4h May, 28 days Active RESULTS No Results PROCEDURES [...] bowel obstruction, Dehydration -VC 01/01/17 Hospitalization History [facility]- UTI/Sepsis 01/18/2018
--- OUTSIDE RECORDS SUMMARY | 2020-01-14 23:14 | XMS REPORT ---
Author Author Melvin BENTLEY Organization [facility] Address [address] [place] [address] Care Team Providers Care Engine Watchman Name Role Phone LINDA BENTLEY Unavailable PROBLEMS Type Condition ICD9-CM Code DEC15-ZU Code Onset Dates Condition S tatus SNOMED Code Problem Abdominal pain, left lower quadrant R10.32 Active 576679145 Problem Mood disorder F39 Active 249065 05 Problem Hypertension, benign I10 Active 47430326 Problem Chronic pain syndrome G89.4 Active 255152277 Problem Attention to urostomy Z43.6 Active 250896557 Problem Anxiety F41.9 Active 58413329 Problem Neuropathy G62.9 Active 344485704 Problem Malignant neoplasm of colon, unspecified part of colon C18.9 Active 372773065 Problem Polyneuropathy G62.9 Active 67608 000 Problem Incontinence of feces, unspecified fecal incontinence type R15.9 Active 84284767 Problem Chronic fatigue, unspecified R53.82 A ctive 159910522 Problem Hydronephrosis with ureteral stricture, not else where classified N13.1 Active 15969318 Problem Primary insomnia F51.01 Active 193 791552 Problem 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 [address] [facility] [id number] [address] [place] [phone] Jun, [place] [address] [address] [facility] [id number] [address] [place] [address] Jun, Lumbar neuritis M54.16 [facility] [address] [facility] [id number] [address] [place] [phone] May, Neuropathy G62.9 [place] [address] [address] May, [facility] [address] [address] 05 May, 2018 Neuropathy G62.9 and Hyperte nsion, benign I10 [facility] [address] [place] [id number] [place] [phone] 09 Apr, 2018 Polyneuropathy G62.9 and Hyp ertension, benign I10 [facility] [address] [place] [id number] [place] [id number] 17 Mar, 2018 Chronic pain syndrome G89.4 and Hypertension, benign I10 [place] [address] [place] [id number] [place] [phone] 11 Mar, 2018 Polyneuropathy G62.9 and Hyp ertension, benign I10 [place] [address] [address] Feb, [facility] [address] [place] [id number] [place] [place] [phone] Feb, Hypertension, benign I10 [place] [address] [address] Feb, Hypertension, benign I10 ; P olyneuropathy G62.9 and Primary insomnia F51.01 [place] [address] [address] Jan, Hypertension, benign I10 and Polyneuropathy G62.9 [facility] [address] [place] [id number] [address] [place] [address] Jan, Hypertension, benign I10 and Ne[address]9 [facility] [address] [place] [id number] [address] [place] [address] Jan, [facility] [address] [place] [id number] [address] [place] [address] Dec, Polyneuropathy G62.9 [facility] [address] [place] [id number] [address] [place] [phone] Dec, Mood disorder F39 [facility] [address] [facility] [id number] [address] [place] [id number] November, Polyneuropathy G62.9 [facility] [address] [facility] [id number] [address] [place] [address] November, Medicare annual wellness vis it, initial Z00.00 [facility] [address] [facility] [id number] [address] [place] [phone] November, Mood disorder F39 [facility] [address] [id number] [address] [place] [address] Oct, Polyneuropathy G62.9 [facility] [address] [facility] [id number] [address] [place] [phone] Oct, [facility] [address] [facility] [id number] [address] [place] [address] Oct, [facility] [address] [facility] [id number] [address] [place] [address] Oct, Mood disorder F39 ; Attentio n to urostomy Z43.6 ; Chronic pain syndrome G89.[address] [facility] [address] [facility] [id number] [address] [place] [address] Sep, Polyneuropathy G62.9 [facility] [address] [facility] [id number] [address] [place] [address] Sep, [facility] [address] [facility] [id number] [address] [place] [phone] Sep, Polyneuropathy G62.9 [facility] [address] [facility] [id number] [address] [place] [address] Aug, Polyneuropathy G62.9 [facility] [address] [facility] [id number] [address] [place] [address] Aug, Malignant neoplasm of colon, unspecified part of colon C18.[address] [facility] [address] [facility] [id number] [address] [place] [phone] Aug, Neuropathy G62.9 [address] G[address].9 [facility] [address] [facility] [id number] [address] [place] [address] Jul, Encounter for drug screening Z02.83 [facility] [address] [facility] [id number] [address] [place] [address] Jul, Polyneuropathy G62.9 [facility] [address] [facility] [id number] [address] [place] [phone] Jul, [facility] [address] [facility] [id number] [address] [place] [address] Jul, Neuropathy G62.[address] [facility] [address] [facility] [id number] [address] [place] [address] Jul, [facility] [address] [facility] [id number] [address] [place] [phone] Jul, [facility] [address] [facility] [id number] [address] [place] [id number] Jul, [facility] [address] [facility] [id number] [address] [place] [address] Jul, Polyneuropathy G62.9 [facility] [address] [facility] [id number] [address] [place] [address] Jul, [facility] [address] [facility] [id number] [address] [place] [address] Jun, [facility] [address] [facility] [id number] [address] [place] [address] Jun, [facility] [address] [facility] [id number] [address] [place] [address] Jun, [facility] [address] [facility] [id number] [address] [place] [address] 07 Jun, 2017 Encounter for dental examina tion Z01.20 [facility] [address] [facility] [id number] [address] [place] [phone] Jun, Polyneuropathy G62.[address] F[address] [facility] [address] [facility] [id number] [address] [place] [address] Jun, [facility] [address] [id number] [address] [place] [address] May, Dental examination Z01.20 [facility] [address] [facility] [id number] [address] [place] [address] May, Polyneuropathy G62.9 [facility] [address] [facility] [id number] [address] [place] [address] Apr, Polyneuropathy G62.9 [facility] [address] [place] [id number] [address] [place] [address] Apr, Polyneuropathy G62.9 [facility] [address] [place] [id number] [address] [place] [address] Apr, Hypertension, benign I10 ; P olyneuropathy G62.[address] [facility] [address] [place] [id number] [address] [place] [address] Apr, Primary insomnia F51.[address] [facility] [address] [facility] [id number] [address] [place] [address] Apr, Primary insomnia F51.[address] [facility] [address] [place] [id number] [address] [place] [address] Mar, Primary insomnia F51.01 [facility] [address] [facility] [id number] [address] [place] [address] Mar, [facility] [address] [place] [id number] [address] [place] [address] Mar, Polyneuropathy G62.9 [facility] [address] [id number] [address] [place] [address] Feb, Primary insomnia F51.01 [facility] [address] [id number] [address] [place] [address] Feb, [facility] [address] [id number] [place] [address] Feb, [facility] [address] [id number] [address] [place] [address] Feb, Polyneuropathy G62.9 [facility] [address] [id number] [address] [place] [address] Feb, Primary insomnia F51.01 [facility] [address] [id number] [address] [place] [address] Jan, [facility] [address] [id number] [address] [place] [address] Jan, [facility] [address] [id number] [address] [place] [address] Dec, [facility] [address] [id number] [address] [place] [address] Dec, Primary insomnia F51.01 [facility] [address] [id number] [address] [place] [address] Dec, Primary insomnia F51.01 [facility] [address] [id number] [address] [place] [address] Dec, [facility] [address] [id number] [address] [place] [id number] Dec, [facility] [address] [id number] [address] [place] [address] Dec, [facility] [address] [id number] [address] [place] [phone] Dec, [facility] [address] [facility] [id number] [address] [place] [address] November, Primary insomnia F51.[address] [facility] [address] [facility] [id number] [address] [place] [address] November, [facility] [address] [facility] [id number] [address] [place] [address] November, Abdominal pain, left lower q uadrant R10.32 [facility] [address] [facility] [id number] [address] [place] [id number] November, [facility] [address] [facility] [id number] [address] [place] [phone] Oct, [facility] [address] [facility] [id number] [address] [place] [address] Oct, Abdominal pain, left lower q uadrant R10.32 ; H/O malignant carcinoid tumor of rectum Z85.[address] [facility] [address] [facility] [id number] [address] [place] [phone] Oct, [facility] [address] [facility] [id number] [address] [place] [address] Sep, [facility] [place] [id number] [place] [id number] Sep, [facility] [address] [facility] [id number] [address] [place] [address] Sep, [facility] [address] [facility] [id number] [address] [place] [address] Aug, [facility] [address] [facility] [id number] [address] [place] [phone] Aug, [facility] [address] [facility] [id number] [address] [place] [address] Aug, Abdominal pain, left lower q uadrant R10.32 ; Neuropathy G62.9 and Anxiety F41.9 [facility] [address] [facility] [place] [id number] Jul, [facility] [address] [id number] [address] [place] [address] Jul, [facility] [address] [id number] [address] [place] [address] Jul, [facility] [address] [id number] [address] [place] [address] Jul, [facility] [address] [id number] [address] [place] [address] Jul, [facility] [address] [id number] [address] [place] [phone] Jun, [facility] [address] [id number] [address] [place] [address] May, [facility] [address] [id number] [address] [place] [phone] May, [facility] [address] [id number] [address] [place] [address] Apr, [facility] [address] [id number] [address] [place] [address] Apr, Muscle spasms of both lower extremities M62.838 and Cellulitis, unspecified cellulitis site L03.90 [facility] [address] [id number] [address] [place] [address] Apr, [facility] [address] [id number] [address] [place] [address] 23 Mar, 2016 Generalized abdominal pain R 10.84 [facility] [address] [id number] [address] [place] [phone] 20 Mar, 2016 [facility] [address] [id number] [address] [place] [id number] 14 Mar, 2016 [facility] [address] [id number] [address] [place] [phone] 14 Mar, 2016 [facility] [address] [id number] [address] [place] [address], [place] [id number] 13 Mar, 2016 [facility] [address] [id number] [address] [place] [address], [place] [id number] 12 Mar, 2016 [facility] [address] [id number] [address] [place] [address], [place] [id number] 09 Mar, 2016 [facility] [address] [id number] [address] [place] [id number] 06 Mar, 2016 [facility] [address] [id number] [address] [place] [address] Feb, Other specified diseases of anus and rectum K62.89 [facility] [address] [id number] [address] [place] [address] Feb, [facility] [address] [id number] [address] [place] [phone] Feb, Dizziness R42 [facility] [address] [id number] [address] [place] [id number] Feb, [facility] [address] [id number] [address] [place] [phone] Jan, Polyneuropathy G62.9 [facility] [address] [id number] [address] [place] [address] Jan, Other specified diseases of anus and rectum K62.89 [facility] [address] [id number] [address] [place] [address] Jan, [facility] [address] [id number] [address] [place] [phone] Jan, [facility] [address] [id number] [address] [place] [phone] Jan, [facility] [address] [id number] [address] [place] [phone] Jan, Dizziness R42 [facility] [address] [id number] [address] [place] [address], [place] [id number] Dec, [facility] [address] [id number] [address] [place] [address], [place] [id number] Dec, [facility] [address] [id number] [address] [place] [address], [place] [id number] Dec, [facility] [address] [id number] [address] [place] [address], [place] [id number] Dec, Dizziness R42 [facility] [address] [id number] [address] [place] [address], [place] [id number] November, [facility] [address] [id number] [address] [place] [address], [place] [id number] Oct, [facility] [address] [id number] [address] [place] [address], [place] [id number] Oct, [facility] [address] [id number] [address] [place] [address], [place] [id number] Oct, [facility] [address] [id number] [address] [place] [address], [place] [id number] Oct, [facility] [address] [id number] [address] [place] [address], [place] [id number] Sep, [facility] [address] [id number] [address] [place] [address], [place] [id number] Sep, Primary insomnia F51.01 [facility] [address] [id number] [address] [place] [address], [place] [id number] Sep, Primary insomnia F51.01 [facility] [address] [id number] [address] [place] [address], [place] [id number] Sep, [facility] [address] [id number] [address] [place] [address], [place] [id number] Aug, [facility] [address] [id number] [address] [place] [address], [place] [id number] Aug, [facility] [address] [id number] Aug, Primary insomnia F51.01 ; Mo od disorder F39 ; Nausea and vomiting, unspecified intactability, vomiting of unspecified type R11.[address] [facility] [address] [id number] Aug, [facility] [address] [id number] Aug, Folliculitis L73.9 [facility] [address] [id number] Aug, [facility] [address] [id number] Aug, [facility] [address] [id number] Jul, Folliculitis L73.9 [facility] [address] [id number] Jul, [facility] [address] [id number] Jun, Folliculitis L73.9 [facility] [address] [id number] Jun, [facility] [address] [id number] May, Polyneuropathy G62.9 [facility] [address] [id number] May, Other specified diseases of anus and rectum K62.89 [facility] [address] [id number] May, [facility] [address] [id number] May, Primary insomnia F51.01 [facility] [address] [id number] [address] [place] [id number] May, [facility] [address] [id number] [address] [place] [id number] May, [facility] [address] [id number] [address] [place] [id number] Apr, Other specified diseases of anus and rectum K62.89 ; Chronic fatigue R53.82 ; Urinary tract infection, site not specified N39.0 and Enterococcus as the cause of diseases classified elsewhere B95.2 [facility] [address] [id number] [address] [place] [id number] [address] Apr, 2015 [facility] [address] [id number] [address] [place] [id number] 15 Apr, 2015 [facility] [address] [id number] [address] [place] [id number] Apr, Unspecified inflammatory and toxic neuropathy 357.9 [facility] [address] [id number] [address] [place] [id number] 05 Apr, 2015 [facility] [address] [id number] [address] [place] [id number] 26 Mar, 2015 [facility] [address] [id number] [address] [place] [id number] 23 Mar, 2015 [facility] [address] [id number] [address] [place] [id number] 17 Mar, 2015 [facility] [address] [id number] [address] [place] [id number] 14 Mar, 2015 Unspecified inflammatory and toxic neuropathy 357.9 [facility] [address] [id number] [address] [place] [id number] 12 Mar, 2015 [facility] [address] [id number] [address] [place] [id number] [address], [address] [facility] [address] [id number] [address] [place] [id number] Mar, [facility] [address] [id number] [address] [place] [id number] Mar, [facility] [address] [id number] [address] [place] [id number] Feb, [facility] [address] [id number] [address] [place] [id number] Feb, [facility] [address] [id number] [address] [place] [id number] Feb, [facility] [address] [id number] [address] [place] [phone] Jan, [facility] [address] [id number] [address] [place] [id number] Jan, Nausea 787.02 and Neuropathy 355.9 [facility] [address] [id number] [address] [place] [id number] Jan, [facility] [address] [id number] [address] [place] [id number] Jan, [facility] [address] [id number] [address] [place] [id number] Jan, [facility] [address] [id number] [address] [place] [id number] Jan, Dental examination V72.2 [facility] [address] [id number] [address] [place] [id number] Jan, [facility] [address] [id number] [address] [place] [id number] Dec, [facility] [address] [id number] [address] [place] [phone] Dec, [facility] [address] [id number] [address] [place] [id number] Dec, Neuropathy 355.9 [facility] [address] [id number] [address] [place] [id number] November, [facility] [address] [id number] [address] [place] [address], [place] [id number] November, [facility] [address] [id number] [address] [place] [address], [place] [id number] November, [facility] [address] [id number] [address] [place] [address], [place] [id number] Oct, [facility] [address] [id number] [address] [place] [address], [place] [id number] Oct, [facility] [address] [id number] [address] [place] [address], [place] [id number] Sep, [facility] [address] [id number] [address] [place] [address], [place] [id number] Sep, [facility] [address] [id number] [address] [place] [address], [place] [id number] Sep, [facility] [address] [id number] [address] [place] [address], [place] [id number] Sep, [facility] [address] [id number] [address] [place] [address], [place] [id number] Sep, [facility] [address] [id number] [address] [place] [address], [place] [id number] Sep, [facility] [address] [id number] [address] [place] [address], [place] [id number] Sep, [facility] [address] [id number] [address] [place] [phone] Sep, [facility] [address] [id number] [address] [place] [address], [place] [id number] Aug, [facility] [address] [id number] [address] [place] [address], [place] [id number] Aug, [facility] [address] [id number] [address] [place] [address], [place] [id number] Aug, [facility] [address] [id number] [address] [place] [address], [place] [id number] 04 Aug, 2014 [facility] [address] [id number] [address] [place] [address], [place] [id number] Aug, 2014 [facility] [address] [id number] [address] [place] [address], [place] [id number] Aug, 2014 [facility] [address] [id number] [address] [place] [address], [place] [id number] Aug, 2014 [facility] [address] [id number] [address] [place] [address], [place] [id number] Aug, 2014 [facility] [address] [id number] [address] [place] [address], [place] [id number] Jul, [facility] [address] [id number] [address] [place] [address], [place] [id number] Jul, [facility] [address] [id number] [address] [place] [address], [place] [id number] Jun, [facility] [address] [id number] [address] [place] [address], [place] [id number] Jun, [facility] [address] [id number] [address] [place] [address], [place] [id number] Jun, [facility] [address] [id number] [address] [place] [address], [place] [id number] Jun, [facility] [address] [id number] [address] [place] [address], [place] [id number] Jun, [facility] [address] [id number] [address] [place] [address], [place] [id number] Jun, [facility] [address] [id number] [address] [place] [address], [place] [id number] Jun, [facility] [address] [id number] [address] [place] [address], [place] [id number] Jun, [facility] [address] [id number] [address] [place] [address], [place] [id number] Jun, [facility] [address] [id number] [address] [place] [address], [place] [id number] Jun, [facility] [address] [id number] [address] [place] [address], [place] [id number] Jun, [facility] [address] [id number] [address] [place] [address], [place] [id number] May, [facility] [address] [id number] [address] [place] [address], [place] [id number] May, [facility] [address] [id number] [address] [place] [address], [place] [id number] May, [facility] [address] [id number] [address] [place] [address], [place] [id number] May, [facility] [address] [id number] [address] [place] [address], [place] [id number] May, [facility] [address] [id number] [address] [place] [address], [place] [id number] May, [facility] [address] [id number] [address] [place] [address], [place] [id number] May, [facility] [address] [id number] [address] [place] [address], [place] [id number] May, [facility] [address] [id number] [address] [place] [address], [place] [id number] May, [facility] [address] [id number] [address] [place] [id number] Apr, [facility] [address] [id number] [address] [place] [address], [place] [id number] Apr, [facility] [address] [id number] [address] [place] [address], [place] [id number] Apr, [facility] [address] [id number] [address] [place] [id number] Apr, [facility] [address] [id number] [address] [place] [id number] Apr, [facility] [address] [id number] [facility] [place] [id number] Mar, [facility] [address] [id number] [address] [place] [address], [place] [id number] Mar, [facility] [address] [id number] [address] [place] [address], [place] [id number] Feb, [facility] [address] [id number] [address] [place] [address], [place] [id number] Feb, [facility] [address] [id number] [address] [place] [address], [place] [id number] Feb, [facility] [address] [id number] [address] [place] [address], [place] [id number] Feb, [facility] [address] [id number] [address] [place] [address], [place] [id number] Feb, [facility] [address] [id number] [address] [place] [address], [place] [id number] Feb, [facility] [address] [id number] [address] [place] [address], [place] [id number] Jan, [facility] [address] [id number] [address] [place] [address], [place] [id number] Jan, [facility] [address] [id number] [address] [place] [address], [place] [id number] Jan, [facility] [address] [id number] [address] [place] [address], [place] [id number] Jan, [facility] [address] [id number] [address] [place] [address], [place] [id number] Jan, [facility] [address] [id number] [address] [place] [address], [place] [id number] Jan, [facility] [address] [id number] [address] [place] [address], [place] [id number] Jan, [facility] [address] [id number] [facility] [place] [id number] Jan, [facility] [address] [id number] [facility] [place] [id number] Jan, [facility] [address] [id number] [facility] [place] [address] Jan, [facility] [address] [id number] [facility] [place] [id number] Jan, [facility] [address] [id number] [facility] [place] [id number] Dec, [facility] [address] [id number] [facility] [place] [id number] Dec, [facility] [address] [id number] [facility] [place] [id number] Dec, [facility] [address] [id number] [address] [place] [address], [place] [id number] Dec, [facility] [address] [id number] [address] [place] [address], [place] [id number] Dec, [facility] [address] [id number] [address] [place] [address], [place] [id number] Dec, [facility] [address] [id number] [address] [place] [address], [place] [id number] November, [facility] [address] [id number] [address] [place] [address], [place] [id number] November, [facility] [address] [id number] [address] [place] [address], [place] [id number] November, [facility] [address] [id number] [address] [place] [address], [place] [id number] November, [facility] [address] [id number] [address] [place] [address], [place] [id number] November, [facility] [address] [id number] [address] [place] [address], [place] [id number] November, [facility] [address] [id number] [facility] [place] [id number] Oct, [facility] [address] [id number] [facility] [place] [id number] Oct, [facility] [address] [id number] [facility] [place] [id number] Oct, [facility] [address] [id number] [address] [place] [address], [place] [id number] Oct, [facility] [address] [id number] [facility] [place] [id number] Sep, [facility] [address] [id number] [address] [place] [address], [place] [id number] Sep, [facility] [address] [id number] [address] [place] [address], [place] [id number] Sep, [facility] [address] [id number] [address] [place] [address], [place] [id number] Sep, [facility] [address] [id number] [address] [place] [address], [place] [id number] Sep, [facility] [address] [id number] [address] [place] [address], [place] [id number] Aug, [facility] [address] [id number] [address] [place] [address], [place] [id number] Aug, [facility] [address] [id number] [address] [place] [address], [place] [id number] Aug, [facility] [address] [id number] [address] [place] [address], [place] [id number] Aug, [facility] [address] [id number] [address] [place] [address], [place] [id number] Aug, [facility] [place] [id number] May, [facility] [address] [id number] [address] [place] [address], [place] [id number] May, [facility] [address] [id number] [address] [place] [address], [place] [id number] May, [facility] [address] [id number] [address] [place] [address], [place] [id number] May, [facility] [address] [id number] [address] [place] [address], [place] [id number] May, [facility] [address] [id number] [address] [place] [address], [place] [id number] Apr, [facility] [address] [id number] [address] [place] [address], [place] [id number] Apr, [facility] [address] [id number] [address] [place] [address], [place] [id number] Apr, [facility] [address] [id number] [address] [place] [address], [place] [id number] Apr, [facility] [address] [id number] [address] [place] [address], [place] [id number] Apr, [facility] [address] [id number] [address] [place] [address], [place] [id number] Apr, [facility] [address] [id number] [address] [place] [address], [place] [id number] Apr, [facility] [address] [id number] [address] [place] [address], [place] [id number] 28 Mar, 2013 [facility] [address] [id number] [address] [place] [address], [place] [id number] 25 Mar, 2012 [facility] [address] [id number] [address] [place] [address], [place] [id number] 24 Mar, 2012 [facility] [address] [id number] [address] [place] [address], [place] [id number] 16 Sep, 2012 [facility] [address] [id number] [address] [place] [address], [place] [id number] 12 Mar, 2013 [facility] [address] [id number] [address] [place] [address], [place] [id number] Mar, [facility] [address] [id number] [address] [place] [address], [place] [id number] Feb, [facility] [address] [id number] [address] [place] [address], [place] [id number] Feb, [facility] [address] [id number] [address] [place] [address], [place] [id number] Feb, [facility] [address] [id number] [address] [place] [address], [place] [id number] Feb, [facility] [address] [id number] [address] [place] [address], [place] [id number] Feb, [facility] [address] [id number] [address] [place] [address], [place] [id number] Feb, [facility] [address] [id number] [address] [place] [address], [place] [id number] Jan, [facility] [address] [id number] [address] [place] [address], [place] [id number] Dec, [facility] [address] [id number] [address] [place] [address], [place] [id number] Dec, [facility] [address] [id number] [address] [place] [address], [place] [id number] Dec, [facility] [address] [id number] [address] [place] [address], [place] [id number] Dec, [facility] [address] [id number] [address] [place] [address], [place] [id number] Dec, [facility] [address] [id number] [address] [place] [address], [place] [id number] 18 Dec, 2012 [facility] [address] [id number] [address] [place] [address], [place] [id number] 17 Dec, 2012 [facility] [address] [id number] [address] [place] [address], [place] [id number] Dec, [facility] [address] [id number] [address] [place] [address], [place] [id number] Dec, [facility] [address] [id number] [address] [place] [address], [place] [id number] November, [facility] [address] [id number] [address] [place] [address], [place] [id number] November, [facility] [address] [id number] [address] [place] [address], [place] [id number] Oct, [facility] [address] [id number] [address] [place] [address], [place] [id number] Sep, [facility] [address] [id number] [address] [place] [address], [place] [id number] Sep, [facility] [address] [id number] [address] [place] [address], [place] [id number] Sep, [facility] [address] [id number] [address] [place] [address], [place] [id number] Sep, [facility] [address] [id number] [address] [place] [address], [place] [id number] Aug, [facility] [address] [id number] [address] [place] [address], [place] [id number] Aug, [facility] [address] [id number] [address] [place] [address], [place] [id number] Jul, [facility] [address] [id number] [address] [place] [address], [place] [id number] Jul, [facility] [address] [id number] [address] [place] [address], [place] [id number] Jul, [facility] [address] [id number] [address] [place] [address], [place] [id number] Sep, [facility] [address] [id number] [address] [place] [address], [place] [id number] 17 Sep, 2011 [facility] [address] [id number] [address] [place] [address] 10 Sep, 2011 IMMUNIZATIONS No Known Immunizations [...] bowel obstruction, Dehydration -[facility] 01/01/17 Hospitalization History [facility]- UTI/Sepsis 01/18/2018 Hospitalization History [facility] - infection 4 days 05/2018
[2020-01-14 23:15] LABS: BASOPHILS % (AUTO) 0 % (0-10); EOSINOPHILS % (AUTO) 0 % (0-10); HEMATOCRIT 41 % (40-54); HEMOGLOBIN 14.4 G/DL (13.3-17.7); LYMPHOCYTES # (AUTO) 2.3 X 10^3 (1.0-4.0); LYMPHOCYTES % (AUTO) 22 % (12-44); MEAN CORPUSCULAR HEMOGLOBIN 27 PG (25-34); MEAN CORPUSCULAR HGB CONC 35 G/DL (32-36); MEAN CORPUSCULAR VOLUME 77 FL (80-99); MEAN PLATELET VOLUME 10.7 FL (7.4-10.4); MONOCYTES # (AUTO) 0.7 X 10^3 (0.0-1.0); MONOCYTES % (AUTO) 7 % (0-12); NEUTROPHILS # (AUTO) 7.4 X 10^3 (1.8-7.8); NEUTROPHILS % (AUTO) 71 % (42-75); PLATELET COUNT 267 10^3/uL (130-400); RED CELL DISTRIBUTION WIDTH 14.9 % (10.0-14.5); WHITE BLOOD COUNT 10.3 10^3/uL (4.3-11.0)
--- OUTSIDE RECORDS SUMMARY | 2020-01-14 23:15 | XMS REPORT ---
Author Author Melvin BENTLEY Organization [facility] Address [address] [place] [address] Care Team Providers Care Chair Springer Name Role Phone LINDA BENTLEY Unavailable PROBLEMS Type Condition ICD9-CM Code [id number] Code Onset Dates Condition S tatus SNOMED Code Problem Abdominal pain, left lower quadrant R10.32 Active 876992847 Problem Mood disorder F39 Active 921851 05 Problem Hypertension, benign I10 Active 45038296 Problem Chronic pain syndrome G89.4 Active 611746555 Problem Attention to urostomy Z43.6 Active 486108268 Problem Anxiety F41.9 Active 22127466 Problem Neuropathy G62.9 Active 361017699 Problem Malignant neoplasm of colon, unspecified part of colon C18.9 Active 190060085 Problem Polyneuropathy G62.9 Active 30333 000 Problem Incontinence of feces, unspecified fecal incontinence type R15.9 Active 35923883 Problem Chronic fatigue, unspecified R53.82 A ctive 684005600 Problem Hydronephrosis with ureteral stricture, not else where classified N13.1 Active 26604205 Problem Primary insomnia F51.01 Active 193 465089 Problem 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 480940491 ALLERGIES No Information ENCOUNTERS Encounter Location Date Diagnosis [facility] [address] [facility] [id number] [address] [place] [phone] Jun, [facility] [address] [facility] [id number] [address] [place] [phone] May, Neuropathy G62.9 [facility] [address] [facility] [id number] [address] [place] [phone] May, [facility] [address] [facility] [id number] [address] [place] [phone] May, Neuropathy G62.9 and Hyperte nsion, benign I10 [facility] [address] [facility] [id number] [address] [place] [phone] 09 Apr, 2018 Polyneuropathy G62.9 and Hyp ertension, benign I10 [facility] [address] [facility] [id number] [address] [place] [phone] 17 Mar, 2018 Chronic pain syndrome G89.4 and Hypertension, benign I10 [facility] [address] [facility] [id number] [address] [place] [phone] 11 Mar, 2018 Polyneuropathy G62.9 and Hyp ertension, benign I10 [facility] [address] [facility] [id number] [address] [place] [phone] Feb, [facility] [address] [facility] [id number] [address] [place] [phone] Feb, Hypertension, benign I10 [facility] [address] [facility] [id number] [address] [place] [phone] Feb, Hypertension, benign I10 ; P olyneuropathy G62.9 and Primary insomnia F51.01 [facility] [address] [facility] [id number] [address] [place] [phone] Jan, Hypertension, benign I10 and Polyneuropathy G62.9 [facility] [address] [facility] [id number] [address] [place] [phone] Jan, Hypertension, benign I10 and Neuropathy G62.9 [facility] [address] [facility] [id number] [address] [place] [phone] Jan, [facility] [address] [facility] [id number] [address] [place] [phone] Dec, Polyneuropathy G62.9 [facility] [address] [facility] [id number] [address] [place] [phone] Dec, Mood disorder F39 [facility] [address] [facility] [id number] [address] [place] [phone] November, Polyneuropathy G62.9 [facility] [address] [facility] [id number] [address] [place] [phone] November, Medicare annual wellness vis it, initial Z00.00 [facility] [address] [facility] [id number] [address] [place] [phone] November, Mood disorder F39 [facility] [address] [facility] [id number] [address] [place] [phone] Oct, Polyneuropathy G62.9 [facility] [address] [facility] [id number] [address] [place] [phone] Oct, [facility] [address] [facility] [id number] [address] [place] [phone] Oct, [facility] [address] [facility] [id number] [address] [place] [phone] Oct, Mood disorder F39 ; Attentio n to urostomy Z43.6 ; Chronic pain syndrome G89.4 and Polyneuropathy G62.9 [facility] [address] [facility] [id number] [address] [place] [phone] Sep, Polyneuropathy G62.9 [facility] [address] [facility] [id number] [address] [place] [phone] Sep, [facility] [address] [facility] [id number] [address] [place] [phone] Sep, Polyneuropathy G62.9 [facility] [address] [facility] [id number] [address] [place] [phone] Aug, Polyneuropathy G62.9 [facility] [address] [facility] [id number] [address] [place] [phone] Aug, Malignant neoplasm of colon, unspecified part of colon C18.9 and Polyneuropathy G62.9 [facility] [address] [facility] [id number] [address] [place] [phone] Aug, Neuropathy G62.9 and Polyneu ropathy G62.9 [facility] [address] [facility] [id number] [address] [place] [phone] 31 Jul, 2017 Encounter for drug screening Z02.83 [facility] [address] [facility] [id number] [address] [place] [phone] Jul, Polyneuropathy G62.9 [facility] [address] [facility] [id number] [address] [place] [phone] Jul, [facility] [address] [facility] [id number] [address] [place] [phone] Jul, Neuropathy G62.9 and Anxiety F41.9 [facility] [address] [facility] [id number] [address] [place] [phone] Jul, [facility] [address] [facility] [id number] [address] [place] [phone] Jul, [facility] [address] [facility] [id number] [address] [place] [phone] Jul, [facility] [address] [facility] [id number] [address] [place] [phone] Jul, Polyneuropathy G62.9 [facility] [address] [facility] [id number] [address] [place] [phone] Jul, [facility] [address] [facility] [id number] [address] [place] [phone] Jun, [facility] [address] [facility] [id number] [address] [place] [phone] Jun, [facility] [address] [facility] [id number] [address] [place] [phone] Jun, [facility] [address] [id number] [address] [place] [address] 07 Jun, 2017 Encounter for dental examina tion Z01.20 [facility] [address] [facility] [id number] [address] [place] [phone] Jun, Polyneuropathy G62.9 and Anx iety F41.9 [facility] [address] [facility] [id number] [address] [place] [phone] Jun, [facility] [address] [id number] [address] [place] [address] May, Dental examination Z01.20 [facility] [address] [facility] [id number] [address] [place] [phone] May, Polyneuropathy G62.9 [facility] [address] [facility] [id number] [address] [place] [phone] Apr, Polyneuropathy G62.9 [facility] [address] [place] [id number] [address] [place] [phone] Apr, Polyneuropathy G62.9 [facility] [address] [place] [id number] [address] [place] [phone] Apr, Hypertension, benign I10 ; P olyneuropathy G62.9 and Anxiety F41.9 [facility] [address] [place] [id number] [address] [place] [phone] Apr, Primary insomnia F51.01 and Polyneuropathy G62.9 [facility] [address] [place] [id number] [address] [place] [phone] Apr, Primary insomnia F51.01 and Polyneuropathy G62.9 [facility] [address] [place] [id number] [address] [place] [phone] Mar, Primary insomnia F51.01 [facility] [address] [facility] [id number] [address] [place] [phone] Mar, [facility] [address] [place] [id number] [address] [place] [phone] Mar, Polyneuropathy G62.9 [facility] [address] [facility] [id number] [address] [place] [phone] Feb, Primary insomnia F51.01 [facility] [address] [place] [id number] [address] [place] [address], [place] [address] Feb, [facility] [address] [id number] [address] [place] [address], [place] [address] Feb, [facility] [address] [facility] [id number] [address] [place] [address], [place] [address] Feb, Polyneuropathy G62.9 [facility] [address] [facility] [id number] [address] [place] [address], [place] [address] Feb, Primary insomnia F51.01 [facility] [address] [id number] [address] [place] [address], [place] [address] Jan, [facility] [address] [id number] [address] [place] [address], [place] [address] Jan, [facility] [address] [facility] [id number] [address] [place] [address], [place] [address] Dec, [facility] [address] [facility] [id number] [address] [place] [phone] Dec, Primary insomnia F51.01 [facility] [address] [id number] [address] [place] [address], [place] [address] Dec, Primary insomnia F51.01 [facility] [address] [id number] [address] [place] [address], [place] [address] Dec, [facility] [address] [facility] [id number] [address] [place] [phone] Dec, [facility] [address] [facility] [id number] [address] [place] [phone] Dec, [facility] [address] [id number] [address] [place] [phone] Dec, [facility] [address] [facility] [id number] [address] [place] [phone] November, Primary insomnia F51.01 and Polyneuropathy G62.9 [facility] [address] [facility] [id number] [address] [place] [phone] November, [facility] [address] [id number] [address] [place] [phone] November, Abdominal pain, left lower q uadrant R10.32 [facility] [address] [id number] [address] [place] [phone] November, [facility] [address] [id number] [address] [place] [phone] Oct, [facility] [address] [id number] [address] [place] [phone] Oct, Abdominal pain, left lower q uadrant R10.32 ; 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 and Neuropathy G62.9 [facility] [address] [id number] [address] [place] [phone] Oct, [facility] [address] [facility] [id number] [address] [place] [phone] Sep, [facility] [id number] [id number] Sep, [facility] [address] [id number] [address] [place] [phone] Sep, [facility] [address] [facility] [id number] [address] [place] [phone] Aug, [facility] [address] [facility] [id number] [address] [place] [phone] Aug, [facility] [address] [id number] [address] [place] [phone] Aug, Abdominal pain, left lower q uadrant R10.32 ; Neuropathy G62.9 and Anxiety F41.9 [facility] [address] [place] [address] Jul, [facility] [address] [facility] [id number] [address] [place] [phone] Jul, [facility] [address] [id number] [address] [place] [phone] Jul, [facility] [address] [id number] [address] [place] [phone] Jul, [facility] [address] [id number] [address] [place] [phone] Jul, [facility] [address] [id number] [address] [place] [phone] Jun, [facility] [address] [id number] [address] [place] [phone] May, [facility] [address] [id number] [address] [place] [phone] May, [facility] [address] [id number] [address] [place] [phone] Apr, [facility] [address] [id number] [address] [place] [phone] Apr, Muscle spasms of both lower extremities M62.838 and Cellulitis, unspecified cellulitis site L03.90 [facility] [address] [id number] [address] [place] [phone] Apr, [facility] [address] [id number] [address] [place] [phone] 23 Mar, 2016 Generalized abdominal pain R 10.84 [facility] [address] [id number] [address] [place] [phone] 20 Mar, 2016 [facility] [address] [id number] [address] [place] [phone] 14 Mar, 2016 [facility] [address] [id number] [address] [place] [phone] 14 Mar, 2016 [facility] [address] [id number] [address] [place] [id number] 13 Mar, 2016 [facility] [address] [id number] [address] [place] [phone] 12 Mar, 2016 [facility] [address] [id number] [address] [place] [phone] Mar, [facility] [address] [id number] [address] [place] [phone] Mar, [facility] [address] [id number] [address] [place] [phone] Feb, Other specified diseases of anus and rectum K62.89 [facility] [address] [id number] [address] [place] [phone] Feb, [facility] [address] [id number] [address] [place] [phone] Feb, Dizziness R42 [facility] [address] [id number] [address] [place] [phone] Feb, [facility] [address] [id number] [address] [place] [phone] Jan, Polyneuropathy G62.9 [facility] [address] [id number] [address] [place] [phone] Jan, Other specified diseases of anus and rectum K62.89 [facility] [address] [id number] [address] [place] [phone] Jan, [facility] [address] [id number] [address] [place] [phone] Jan, [facility] [address] [id number] [address] [place] [phone] Jan, [facility] [address] [id number] [address] [place] [phone] Jan, Dizziness R42 [facility] [address] [id number] [address] [place] [phone] Dec, [facility] [address] [id number] [address] [place] [phone] Dec, [facility] [address] [id number] [address] [place] [phone] Dec, [facility] [address] [facility] [id number] [address] [place] [phone] Dec, Dizziness R42 [facility] [address] [facility] [id number] [address] [place] [phone] November, [facility] [address] [facility] [id number] [address] [place] [phone] Oct, [facility] [address] [facility] [id number] [address] [place] [phone] Oct, [facility] [address] [facility] [id number] [address] [place] [phone] Oct, [facility] [address] [facility] [id number] [address] [place] [phone] Oct, [facility] [address] [place] [id number] [address] [place] [phone] Sep, [facility] [address] [facility] [id number] [address] [place] [phone] Sep, Primary insomnia F51.01 [facility] [address] [place] [id number] [address] [place] [phone] Sep, Primary insomnia F51.01 [facility] [address] [place] [id number] [address] [place] [phone] Sep, [facility] [address] [facility] [id number] [address] [place] [phone] Aug, [facility] [address] [facility] [id number] [address] [place] [phone] Aug, [facility] [address] [facility] [id number] [address] [place] [phone] Aug, Primary insomnia F51.01 ; Mo od disorder F39 ; Nausea and vomiting, unspecified intactability, vomiting of unspecified type R11.2 and Diarrhea R19.7 [facility] [address] [facility] [id number] [address] [place] [phone] 15 Aug, 2015 [facility] [address] [id number] [address] [place] [phone] 05 Aug, 2015 Folliculitis L73.9 [facility] [address] [facility] [id number] [address] [place] [phone] Aug, [facility] [address] [facility] [id number] [address] [place] [phone] Aug, [facility] [address] [facility] [id number] [address] [place] [phone] Jul, Folliculitis L73.9 [facility] [address] [facility] [id number] [address] [place] [phone] Jul, [facility] [address] [facility] [id number] [address] [place] [phone] Jun, Folliculitis L73.9 [facility] [address] [facility] [id number] [address] [place] [phone] Jun, [facility] [address] [facility] [id number] [address] [place] [phone] May, Polyneuropathy G62.9 [facility] [address] [facility] [id number] [address] [place] [phone] May, Other specified diseases of anus and rectum K62.89 [facility] [address] [facility] [id number] [address] [place] [phone] May, [facility] [address] [facility] [id number] [address] [place] [phone] May, Primary insomnia F51.01 [facility] [address] [facility] [id number] [address] [place] [phone] May, [facility] [address] [facility] [id number] [address] [place] [phone] May, [facility] [address] [id number] [address] [place] [phone] Apr, Other specified diseases of anus and rectum K62.89 ; Chronic fatigue R53.82 ; Urinary tract infection, site not specified N39.0 and Enterococcus as the cause of diseases classified elsewhere B95.2 [facility] [address] [id number] [address] [place] [phone] 16 Apr, 2015 [facility] [address] [id number] [address] [place] [phone] 15 Apr, 2015 [facility] [address] [id number] [address] [place] [phone] 14 Apr, 2015 Unspecified inflammatory and toxic neuropathy 357.9 [facility] [address] [id number] [address] [place] [phone] 05 Apr, 2015 [facility] [address] [id number] [address] [place] [phone] 26 Mar, 2015 [facility] [address] [id number] [address] [place] [phone] 23 Mar, 2015 [facility] [address] [id number] [address] [place] [phone] 17 Mar, 2015 [facility] [address] [id number] [address] [place] [phone] 14 Mar, 2015 Unspecified inflammatory and toxic neuropathy 357.9 [facility] [address] [id number] [address] [place] [phone] 12 Mar, 2015 [facility] [facility] [address] [id number] [address] [place] [id number] 11 Mar, 2015 [facility] [address] [id number] [address] [place] [id number] 11 Mar, 2015 [facility] [address] [id number] [address] [place] [id number] 10 Mar, 2015 [facility] [address] [id number] [address] [place] [id number] Feb, [facility] [address] [id number] [address] [place] [phone] Feb, [facility] [address] [id number] [address] [place] [phone] Feb, [facility] [address] [id number] [address] [place] [phone] Jan, [facility] [address] [id number] [address] [place] [phone] Jan, Nausea 787.02 and Neuropathy 355.9 [facility] [address] [id number] [address] [place] [phone] Jan, [facility] [address] [id number] [address] [place] [phone] Jan, [facility] [address] [id number] [address] [place] [phone] Jan, [facility] [address] [id number] [address] [place] [id number] Jan, Dental examination V72.2 [facility] [address] [id number] [address] [place] [phone] Jan, [facility] [address] [id number] [address] [place] [phone] Dec, [facility] [address] [id number] [address] [place] [phone] Dec, [facility] [address] [id number] [address] [place] [phone] Dec, Neuropathy 355.9 [facility] [address] [id number] [address] [place] [phone] November, [facility] [address] [id number] [address] [place] [phone] November, [facility] [address] [id number] [address] [place] [phone] November, [facility] [address] [id number] [address] [place] [address], [place] [address] 14 Oct, 2014 [facility] [address] [id number] [address] [place] [address], [place] [address] 13 Oct, 2014 [facility] [address] [id number] [address] [place] [address], [place] [address] Sep, [facility] [address] [id number] [address] [place] [address], [place] [address] Sep, [facility] [address] [id number] [address] [place] [address], [place] [address] Sep, [facility] [address] [id number] [address] [place] [address], [place] [address] Sep, [facility] [address] [id number] [address] [place] [address], [place] [address] Sep, [facility] [address] [id number] [address] [place] [address], [place] [address] Sep, [facility] [address] [id number] [address] [place] [address], [place] [address] Sep, [facility] [address] [id number] [address] [place] [address], [place] [address] Sep, [facility] [address] [id number] [address] [place] [address], [place] [address] Aug, [facility] [address] [id number] [address] [place] [address], [place] [address] Aug, [facility] [address] [id number] [address] [place] [address], [place] [address] Aug, [facility] [address] [id number] [address] [place] [address], [place] [address] Aug, [facility] [address] [id number] [address] [place] [address], [place] [address] Aug, [facility] [address] [id number] [address] [place] [address], [place] [address] Aug, [facility] [address] [id number] [address] [place] [address], [place] [address] Aug, [facility] [address] [id number] [address] [place] [address], [place] [address] Aug, [facility] [address] [id number] [address] [place] [address], [place] [address] Jul, [facility] [address] [id number] [address] [place] [address], [place] [address] Jul, [facility] [address] [id number] [address] [place] [address], [place] [address] Jun, [facility] [address] [id number] [address] [place] [address], [place] [address] Jun, [facility] [address] [id number] [address] [place] [address], [place] [address] Jun, [facility] [address] [id number] [address] [place] [address], [place] [address] Jun, [facility] [address] [id number] [address] [place] [address], [place] [address] Jun, [facility] [address] [id number] [address] [place] [address], [place] [address] Jun, [facility] [address] [id number] [address] [place] [address], [place] [address] Jun, [facility] [address] [id number] [address] [place] [address], [place] [address] Jun, [facility] [address] [id number] [address] [place] [address], [place] [address] Jun, [facility] [address] [id number] [address] [place] [address], [place] [address] Jun, [facility] [address] [id number] [address] [place] [address], [place] [address] Jun, [facility] [address] [id number] [address] [place] [address], [place] [address] May, [facility] [address] [id number] [address] [place] [address], [place] [address] May, [facility] [address] [id number] [address] [place] [address], [place] [address] May, [facility] [address] [id number] [address] [place] [address], [place] [address] May, [facility] [address] [id number] [address] [place] [address], [place] [address] May, [facility] [address] [id number] [address] [place] [address], [place] [address] May, [facility] [address] [id number] [address] [place] [address], [place] [address] May, [facility] [address] [id number] [address] [place] [address], [place] [address] May, [facility] [address] [id number] [address] [place] [address], [place] [address] May, [facility] [address] [id number] [address] [place] [address], [place] [address] Apr, [facility] [address] [id number] [address] [place] [address], [place] [address] Apr, [facility] [address] [id number] [address] [place] [address], [place] [address] Apr, [facility] [address] [id number] [address] [place] [address], [place] [address] Apr, [facility] [address] [id number] [address] [place] [address], [place] [address] 15 Apr, 2014 [facility] [address] [id number] [address] [place] [address], [place] [address] 22 Mar, 2014 [facility] [address] [id number] [address] [place] [address], [place] [address] Mar, [facility] [address] [id number] [facility] [place] [address] Feb, [facility] [address] [id number] [facility] [place] [address] Feb, [facility] [address] [id number] [facility] [place] [address] Feb, [facility] [address] [id number] [address] [place] [address], [place] [address] Feb, [facility] [address] [id number] [facility] [place] [address] Feb, [facility] [address] [id number] [address] [place] [address], [place] [address] Feb, [facility] [address] [id number] [address] [place] [address], [place] [address] Jan, [facility] [address] [id number] [address] [place] [address], [place] [address] Jan, [facility] [address] [id number] [address] [place] [address], [place] [address] Jan, [facility] [address] [id number] [address] [place] [address], [place] [address] Jan, [facility] [address] [id number] [address] [place] [address], [place] [address] Jan, [facility] [address] [id number] [address] [place] [address], [place] [address] Jan, [facility] [address] [id number] [address] [place] [address], [place] [address] Jan, [facility] [address] [id number] [address] [place] [address], [place] [address] Jan, [facility] [address] [id number] [address] [place] [address], [place] [address] Jan, [facility] [address] [id number] [facility] [place] [address] Jan, [facility] [address] [id number] [address] [place] [address], [place] [address] Jan, [facility] [address] [id number] [address] [place] [address], [place] [address] Dec, [facility] [address] [id number] [address] [place] [address], [place] [address] Dec, [facility] [address] [id number] [address] [place] [address], [place] [address] Dec, [facility] [address] [id number] [address] [place] [address], [place] [address] Dec, [facility] [address] [id number] [address] [place] [address], [place] [address] Dec, [facility] [address] [id number] [address] [place] [address], [place] [address] Dec, [facility] [address] [id number] [address] [place] [address], [place] [address] November, [facility] [address] [id number] [address] [place] [address], [place] [address] November, [facility] [address] [id number] [address] [place] [address], [place] [address] November, [facility] [address] [id number] [address] [place] [address], [place] [address] November, [facility] [address] [id number] [address] [place] [address], [place] [address] November, [facility] [address] [id number] [address] [place] [address], [place] [address] November, [facility] [address] [id number] [address] [place] [address], [place] [address] Oct, [facility] [address] [id number] [address] [place] [address], [place] [address] Oct, [facility] [address] [id number] [address] [place] [address], [place] [address] Oct, [facility] [address] [id number] [address] [place] [address], [place] [address] Oct, [facility] [address] [id number] [address] [place] [address], [place] [address] Sep, [facility] [address] [id number] [address] [place] [address], [place] [address] Sep, [facility] [address] [id number] [address] [place] [address], [place] [address] Sep, [facility] [address] [id number] [address] [place] [address], [place] [address] Sep, [facility] [address] [id number] [address] [place] [address], [place] [address] Sep, [facility] [address] [id number] [address] [place] [address], [place] [address] Aug, [facility] [address] [id number] [address] [place] [address], [place] [address] Aug, [facility] [address] [id number] [address] [place] [address], [place] [address] Aug, [facility] [address] [id number] [address] [place] [address], [place] [address] Aug, [facility] [address] [id number] [address] [place] [address], [place] [address] Aug, [facility] [place] [id number] May, [facility] [address] [id number] [address] [place] [address], [place] [address] May, [facility] [address] [id number] [address] [place] [address], [place] [address] May, [facility] [address] [id number] [address] [place] [address], [place] [address] May, [facility] [address] [id number] [address] [place] [address], [place] [address] May, [facility] [address] [id number] [address] [place] [address], [place] [address] Apr, [facility] [address] [id number] [address] [place] [address], [place] [address] Apr, [facility] [address] [id number] [address] [place] [address], [place] [address] Apr, [facility] [address] [id number] [address] [place] [address], [place] [address] Apr, [facility] [address] [id number] [address] [place] [address], [place] [address] Apr, [facility] [address] [id number] [address] [place] [address], [place] [address] Apr, [facility] [address] [id number] [address] [place] [address], [place] [address] Apr, [facility] [address] [id number] [address] [place] [address], [place] [address] Mar, [facility] [address] [id number] [address] [place] [address], [place] [address] Mar, [facility] [address] [id number] [address] [place] [address], [place] [address] 24 Mar, 2013 [facility] [address] [id number] [address] [place] [address], [place] [address] 16 Mar, 2013 [facility] [address] [id number] [address] [place] [address], [place] [address] 12 Mar, 2013 [facility] [address] [id number] [address] [place] [address], [place] [address] 06 Mar, 2013 [facility] [address] [id number] [address] [place] [address], [place] [address] Feb, [facility] [address] [id number] [address] [place] [address], [place] [address] Feb, [facility] [address] [id number] [address] [place] [address], [place] [address] Feb, [facility] [address] [id number] [address] [place] [address], [place] [address] Feb, [facility] [address] [id number] [address] [place] [address], [place] [address] Feb, [facility] [address] [id number] [address] [place] [address], [place] [address] Feb, [facility] [address] [id number] [address] [place] [address], [place] [address] Jan, [facility] [address] [id number] [address] [place] [address], [place] [address] Dec, [facility] [address] [id number] [address] [place] [address], [place] [address] Dec, [facility] [address] [id number] [address] [place] [address], [place] [address] Dec, [facility] [address] [id number] [address] [place] [address], [place] [address] Dec, [facility] [address] [id number] [address] [place] [address], [place] [address] Dec, [facility] [address] [id number] [address] [place] [address], [place] [address] Dec, [facility] [address] [id number] [address] [place] [address], [place] [address] Dec, [facility] [address] [id number] [address] [place] [address], [place] [address] Dec, [facility] [address] [id number] [address] [place] [address], [place] [address] Dec, [facility] [address] [id number] [address] [place] [address], [place] [address] November, [facility] [address] [id number] [address] [place] [id number] November, [facility] [address] [id number] [address] [place] [address] Oct, [facility] [address] [id number] [address] [place] [address] Sep, [facility] [address] [id number] [address] [place] [address] Sep, [facility] [address] [id number] [address] [place] [phone] Sep, [facility] [address] [id number] [address] [place] [address] Sep, [facility] [address] [id number] [address] [place] [address] Aug, [facility] [address] [id number] [address] [place] [address] Aug, [facility] [address] [id number] [address] [place] [phone] Jul, [facility] [address] [id number] [address] [place] [phone] Jul, [facility] [address] [id number] [address] [place] [phone] Jul, [facility] [address] [id number] [address] [place] [phone] Sep, [facility] [address] [id number] [address] [place] [phone] Sep, [facility] [address] [id number] [address] [place] [id number] 10 Sep, 2011 IMMUNIZATIONS No Known Immunizations SOCIAL HISTORY Never Assessed REASON FOR VISIT medication PLAN OF CARE VITAL SIGNS MEDICATIONS Unknown [...] bowel obstruction, Dehydration -VC 01/01/17 Hospitalization History [facility]- UTI/Sepsis 01/18/2018
[2020-01-14 23:21] LABS: ALBUMIN 4.5 GM/DL (3.2-4.5); CHLORIDE 106 MMOL/L (98-107); POTASSIUM 2.8 MMOL/L (3.6-5.0); SODIUM 141 MMOL/L (135-145)
[2020-01-14 23:22] LABS: CALCIUM 9.5 MG/DL (8.5-10.1)
[2020-01-14 23:23] LABS: GLUCOSE 110 MG/DL (70-105)
--- OUTSIDE RECORDS SUMMARY | 2020-01-14 23:23 | XMS REPORT ---
Author Author Melvin BENTLEY Organization [facility] Address [address] [place] [address] Care Team Providers Care President Of [employer] [place] Name Role Phone LINDA BENTLEY Unavailable PROBLEMS Type Condition ICD9-CM Code VTL37-AS Code Onset Dates Condition S tatus SNOMED Code Problem Incontinence of feces, unspecified fecal incontinence type R15.9 Active 36655988 Problem Primary insomnia F51.01 Active 193 176553 Problem Hydronephrosis with ureteral stricture, not else where classified N13.1 Active 71884820 Problem Chronic fatigue, unspecified R53.82 A ctive 142232207 Problem Hypertension, benign I10 Active 38904037 Problem Mood disorder F39 Active 333840 05 Problem Neuropathy G62.9 Active 517100640 Problem Chronic pain syndrome G89.4 Active 928164227 Problem Abdominal pain, left lower quadrant R10.32 Active 328504857 Problem 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 Active 150001897 Problem 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 567790202 Problem Anxiety F41.9 Active 35393142 Problem Polyneuropathy G62.9 Active 14108 000 Problem Malignant neoplasm of colon, unspecified part of colon C18.9 Active 265774042 Problem Attention to urostomy Z43.6 Active 255463149 ALLERGIES No Information ENCOUNTERS Encounter Location Date Diagnosis [facility] [address] [facility] [id number] [address] [place] [phone] 16 Oct, 2019 Attention to urostomy Z43.6 and Hypertension, benign I10 [facility] [address] [facility] [id number] [address] [place] [phone] 15 Oct, 2019 [facility] [address] [facility] [id number] [address] [place] [phone] 14 Oct, 2019 Neuropathy G62.9 ; Anxiety F 41.9 and Encounter for Medicare annual wellness exam Z00.00 [facility] [address] [id number] [address] [place] [phone] 10 Sep, 2019 Neuropathy G62.9 ; Anxiety F 41.9 and Encounter for Medicare annual wellness exam Z00.00 [facility] [address] [id number] [address] [place] [phone] 12 Aug, 2019 Anxiety F41.9 ; Neuropathy G 62.9 and Encounter for Medicare annual wellness exam Z00.00 [facility] [address] [id number] [address] [place] [id number] 31 Jul, 2019 [facility] [address] [id number] [address] [place] [address] Jul, Primary insomnia F51.01 and Anxiety F41.9 [facility] [address] [id number] [address] [place] [id number] 14 Jul, 2019 Primary insomnia F51.01 ; Ne uropathy G62.9 and Encounter for Medicare annual wellness exam Z00.00 [facility] [address] [id number] [address] [place] [address] Jun, Neuropathy G62.9 and Encount er for Medicare annual wellness exam Z00.00 [facility] [address] [id number] [address] [place] [phone] 18 Jun, 2019 Primary insomnia F51.01 [facility] [address] [id number] [address] [place] [address] 17 Jun, 2019 Primary insomnia F51.01 ; En counter for Medicare annual wellness exam Z00.00 and Neuropathy G62.9 [facility] [address] [id number] [address] [place] [address] Jun, Malignant neoplasm of colon, unspecified part of colon C18.9 and Chronic fatigue, unspecified R53.82 [facility] [address] [id number] [address] [place] [address] May, Neuropathy G62.9 and Encount er for Medicare annual wellness exam Z00.00 [facility] [address] [id number] [address] [place] [address] 15 May, 2019 Primary insomnia F51.01 [facility] [address] [id number] [address] [place] [address] May, Neuropathy G62.9 and Anxiety F41.9 [facility] [address] [id number] [address] [place] [phone] 30 Apr, 2019 Encounter for Medicare annua l wellness exam Z00.00 [facility] [address] [id number] [address] [place] [id number] 16 Apr, 2019 Neuropathy G62.9 and Encount er for Medicare annual wellness exam Z00.00 [facility] [address] [id number] [address] [place] [phone] 26 Mar, 2019 Neuropathy G62.9 and Primary insomnia F51.01 [facility] [address] [id number] [address] [place] [address] Mar, [facility] [address] [id number] [address] [place] [address] Feb, Primary insomnia F51.01 ; Ne uropathy G62.9 and Encounter for Medicare annual wellness exam Z00.00 [facility] [address] [id number] [address] [place] [address] Feb, Neuropathy G62.9 and Encount er for Medicare annual wellness exam Z00.00 [facility] [address] [id number] [address] [place] [address] Feb, Primary insomnia F51.01 and High risk medication use Z79.899 [facility] [address] [id number] [address] [place] [address] Jan, [facility] [address] [id number] [address] [place] [address] Jan, Neuropathy G62.9 [facility] [address] [id number] [address] [place] [phone] Dec, [facility] [address] [id number] [address] [place] [address] Dec, Encounter for Medicare annua l wellness exam Z00.00 and Neuropathy G62.9 [facility] [address] [id number] [address] [place] [address] November, [facility] [address] [id number] [address] [place] [address] November, Encounter for Medicare annua l wellness exam Z00.00 ; 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 ; Mood disorder F39 ; Chronic fatigue, unspecified R53.82 and Neuropathy G62.9 [facility] [address] [id number] [address] [place] [address] November, Neuropathy G62.9 [facility] [address] [id number] [address] [place] [address] Oct, Neuropathy G62.9 [facility] [address] [id number] [address] [place] [phone] Oct, Hypertension, benign I10 and Anxiety F41.9 [facility] [address] [id number] [address] [place] [address] Oct, [facility] [address] [id number] [address] [place] [phone] Oct, [facility] [address] [id number] [address] [place] [address] Oct, [facility] [address] [id number] [address] [place] [address] Oct, Neuropathy G62.9 [facility] [address] [id number] [address] [place] [phone] Sep, [facility] [address] [id number] [address] [place] [address] Sep, Neuropathy G62.9 [facility] [address] [id number] [address] [place] [address] Sep, [facility] [address] [facility] [id number] [address] [place] [address] Sep, H/O malignant carcinoid tumo r of rectum Z85.040 and Primary insomnia F51.01 [facility] [address] [id number] [address] [place] [address] Aug, [facility] [address] [id number] [address] [place] [address] Aug, Neuropathy G62.9 [facility] [address] [id number] [address] [place] [address] Aug, [facility] [address] [facility] [id number] [address] [place] [address] Jul, Non-recurrent acute suppurat francine otitis media of left ear without spontaneous rupture of tympanic membrane H66.002 [facility] [address] [facility] [id number] [address] [place] [address] Jul, Neuropathy G62.9 [facility] [address] [facility] [id number] [address] [place] [phone] Jun, [facility] [address] [facility] [id number] [address] [place] [address] Jun, [facility] [address] [facility] [id number] [address] [place] [address] Jun, Neuropathy G62.9 [facility] [address] [facility] [id number] [address] [place] [address] Jun, [facility] [address] [facility] [id number] [address] [place] [address] Jun, [facility] [address] [facility] [id number] [address] [place] [address] Jun, Lumbar neuritis M54.16 [facility] [address] [facility] [id number] [address] [place] [address] May, Neuropathy G62.9 [facility] [address] [place] [id number] [address] [place] [address] May, [facility] [address] [place] [id number] [address] [place] [phone] 05 May, 2018 Neuropathy G62.9 and Hyperte nsion, benign I10 [facility] [address] [place] [id number] [place] [address] Apr, Polyneuropathy G62.9 and Hyp ertension, benign I10 [facility] [address] [place] [id number] [place] [phone] 17 Mar, 2018 Chronic pain syndrome G89.4 and Hypertension, benign I10 [place] [address] [place] [id number] [place] [address] Mar, Polyneuropathy G62.9 and Hyp ertension, benign I10 [facility] [address] [place] [id number] [address] [place] [address] Feb, [facility] [address] [address] Feb, Hypertension, benign I10 [facility] [address] [place] [id number] [place] [phone] Feb, Hypertension, benign I10 ; P olyneuropathy G62.9 and Primary insomnia F51.01 [facility] [address] [place] [id number] [address] [place] [address] Jan, Hypertension, benign I10 and Polyneuropathy G62.9 [facility] [address] [place] [id number] [address] [place] [address] Jan, Hypertension, benign I10 and Neuropathy G62.9 [facility] [address] [place] [id number] [address] [place] [address] Jan, [facility] [address] [place] [id number] [address] [place] [address] Dec, Polyneuropathy G62.9 [facility] [address] [id number] [address] [place] [address] Dec, Mood disorder F39 [facility] [address] [id number] [address] [place] [address] November, Polyneuropathy G62.9 [facility] [address] [facility] [id number] [address] [place] [address] November, Medicare annual wellness vis it, initial Z00.00 [facility] [address] [id number] [address] [place] [address] November, Mood disorder F39 [facility] [address] [id number] [address] [place] [address] Oct, Polyneuropathy G62.9 [facility] [address] [facility] [id number] [address] [place] [address] Oct, [facility] [address] [facility] [id number] [address] [place] [id number] Oct, [facility] [address] [facility] [id number] [address] [place] [address] Oct, Mood disorder F39 ; Attentio n to urostomy Z43.6 ; Chronic pain syndrome G89.4 and Polyneuropathy G62.9 [facility] [address] [facility] [id number] [address] [place] [address] Sep, Polyneuropathy G62.9 [facility] [address] [id number] [address] [place] [phone] Sep, [facility] [address] [id number] [address] [place] [address] Sep, Polyneuropathy G62.9 [facility] [address] [facility] [id number] [address] [place] [address] Aug, Polyneuropathy G62.9 [facility] [address] [facility] [id number] [address] [place] [address] Aug, Malignant neoplasm of colon, unspecified part of colon C18.9 and Polyneuropathy G62.9 [facility] [address] [facility] [id number] [address] [place] [address] Aug, Neuropathy G62.9 and Polyneu ropathy G62.9 [facility] [address] [facility] [id number] [address] [place] [address] Jul, Encounter for drug screening Z02.83 [facility] [address] [id number] [address] [place] [address] Jul, Polyneuropathy G62.9 [facility] [address] [facility] [id number] [address] [place] [address] Jul, [facility] [address] [facility] [id number] [address] [place] [address] Jul, Neuropathy G62.9 and Anxiety F41.9 [facility] [address] [facility] [id number] [address] [place] [address] Jul, [facility] [address] [facility] [id number] [address] [place] [address] Jul, [facility] [address] [facility] [id number] [address] [place] [address] Jul, [facility] [address] [facility] [id number] [address] [place] [address] Jul, Polyneuropathy G62.9 [facility] [address] [id number] [address] [place] [address] Jul, [facility] [address] [facility] [id number] [address] [place] [phone] Jun, [facility] [address] [facility] [id number] [address] [place] [address] Jun, [facility] [address] [facility] [id number] [address] [place] [address] Jun, [facility] [address] [id number] [place] [address] 07 Jun, 2017 Encounter for dental examina tion Z01.20 [facility] [address] [place] [id number] [address] [place] [address] Jun, Polyneuropathy G62.9 and Anx iety F41.9 [facility] [address] [place] [id number] [address] [place] [address] Jun, [facility] [address] [id number] [place] [address] May, Dental examination Z01.20 [facility] [address] [place] [id number] [address] [place] [address] May, Polyneuropathy G62.9 [place] [id number] [place] [id number] [address] [place] [address] Apr, Polyneuropathy G62.9 [facility] [address] [place] [id number] [address] [place] [address] Apr, Polyneuropathy G62.9 [facility] [address] [place] [id number] [place] [address] Apr, Hypertension, benign I10 ; P olyneuropathy G62.9 and Anxiety F41.9 [place] [address] [place] [id number] [address] [place] [address] Apr, Primary insomnia F51.01 and Polyneuropathy G62.9 [facility] [address] [place] [id number] [address] [place] [address] Apr, Primary insomnia F51.01 and Polyneuropathy G62.9 [facility] [address] [place] [id number] [address] [place] [address] Mar, Primary insomnia F51.01 [facility] [address] [place] [id number] [address] [place] [address] Mar, [place] [address] [id number] [address] [place] [address], [place] [address] Mar, Polyneuropathy G62.9 [facility] [address] [id number] [address] [place] [address], [place] [address] Feb, Primary insomnia F51.01 [facility] [address] [id number] [address] [place] [address], [place] [address] Feb, [facility] [address] [id number] [address] [place] [address], [place] [address] Feb, [facility] [address] [id number] [address] [place] [address], [place] [address] Feb, Polyneuropathy G62.9 [facility] [address] [id number] [address] [place] [address], [place] [address] Feb, Primary insomnia F51.01 [facility] [address] [id number] [address] [place] [address], [place] [address] Jan, [facility] [address] [id number] [address] [place] [address], [place] [address] Jan, [facility] [address] [id number] [address] [place] [address], [place] [address] Dec, [facility] [address] [id number] [address] [place] [address] Dec, Primary insomnia F51.01 [facility] [address] [id number] [address] [place] [address], [place] [address] Dec, Primary insomnia F51.01 [facility] [address] [id number] [address] [place] [address], [place] [address] Dec, [facility] [address] [id number] [address] [place] [address] Dec, [facility] [address] [id number] [address] [place] [address] Dec, [facility] [address] [id number] [address] [place] [id number] Dec, [facility] [address] [facility] [id number] [address] [place] [address] November, Primary insomnia F51.01 and Polyneuropathy G62.9 [facility] [address] [id number] [address] [place] [address] November, [facility] [address] [facility] [id number] [address] [place] [address] November, Abdominal pain, left lower q uadrant R10.32 [facility] [address] [facility] [id number] [address] [place] [address] November, [facility] [address] [facility] [id number] [address] [place] [address] Oct, [facility] [address] [facility] [id number] [address] [place] [address] Oct, Abdominal pain, left lower q uadrant R10.32 ; H/O malignant carcinoid tumor of rectum Z85.040 and Neuropathy G62.9 [facility] [address] [facility] [id number] [address] [place] [address] Oct, [facility] [address] [facility] [id number] [address] [place] [phone] Sep, [facility] [id number] [place] [id number] Sep, [facility] [address] [facility] [id number] [address] [place] [id number] Sep, [facility] [address] [facility] [id number] [address] [place] [phone] Aug, [facility] [address] [facility] [id number] [address] [place] [id number] Aug, [facility] [address] [facility] [id number] [address] [place] [phone] Aug, Abdominal pain, left lower q uadrant R10.32 ; Neuropathy G62.9 and Anxiety F41.9 [facility] [address] [id number] [place] [id number] Jul, [facility] [address] [id number] [address] [place] [phone] Jul, [facility] [address] [id number] [address] [place] [phone] Jul, [facility] [address] [id number] [address] [place] [phone] Jul, [facility] [address] [id number] [address] [place] [id number] Jul, [facility] [address] [id number] [address] [place] [phone] Jun, [facility] [address] [id number] [address] [place] [id number] May, [facility] [address] [id number] [address] [place] [phone] May, [facility] [address] [id number] [address] [place] [phone] Apr, [facility] [address] [facility] [id number] [address] [place] [phone] Apr, Muscle spasms of both lower extremities M62.838 and Cellulitis, unspecified cellulitis site L03.90 [facility] [address] [id number] [address] [place] [phone] Apr, [facility] [address] [id number] [address] [place] [phone] 23 Mar, 2016 Generalized abdominal pain R 10.84 [facility] [address] [id number] [address] [place] [id number] 20 Mar, 2016 [facility] [address] [facility] [id number] [address] [place] [phone] 14 Mar, 2016 [facility] [address] [id number] [address] [place] [id number] 14 Mar, 2015 [facility] [address] [id number] [address] [place] [phone] 13 Mar, 2016 [facility] [address] [id number] [address] [place] [phone] 12 Mar, 2016 [facility] [address] [id number] [address] [place] [id number] 09 Mar, 2016 [facility] [address] [id number] [address] [place] [address] 06 Mar, 2016 [facility] [address] [id number] [address] [place] [address] Feb, Other specified diseases of anus and rectum K62.89 [facility] [address] [id number] [address] [place] [address] Feb, [facility] [address] [id number] [address] [place] [address] Feb, Dizziness R42 [facility] [address] [id number] [address] [place] [address] Feb, [facility] [address] [id number] [address] [place] [address] Jan, Polyneuropathy G62.9 [facility] [address] [id number] [address] [place] [address] Jan, Other specified diseases of anus and rectum K62.89 [facility] [address] [id number] [address] [place] [address] Jan, [facility] [address] [id number] [address] [place] [address] 16 Jan, 2016 [facility] [address] [id number] [address] [place] [phone] 15 Jan, 2016 [facility] [address] [id number] [address] [place] [address] Jan, Dizziness R42 [facility] [address] [id number] [address] [place] [address], [place] [address] Dec, [facility] [address] [id number] [address] [place] [address], [place] [address] Dec, [facility] [address] [id number] [address] [place] [address], [place] [address] Dec, [facility] [address] [id number] [address] [place] [address], [place] [address] Dec, Dizziness R42 [facility] [address] [id number] [address] [place] [address], [place] [address] November, [facility] [address] [id number] [address] [place] [address], [place] [address] Oct, [facility] [address] [id number] [address] [place] [address], [place] [address] Oct, [facility] [address] [id number] [address] [place] [address], [place] [address] Oct, [facility] [address] [id number] [address] [place] [address], [place] [address] Oct, [facility] [address] [id number] [address] [place] [address], [place] [address] Sep, [facility] [address] [id number] [address] [place] [address], [place] [address] Sep, Primary insomnia F51.01 [facility] [address] [id number] [address] [place] [address], [place] [address] Sep, Primary insomnia F51.01 [facility] [address] [id number] [address] [place] [address], [place] [address] Sep, [facility] [address] [id number] [address] [place] [address], [place] [address] Aug, [facility] [address] [id number] [address] [address] Aug, [facility] [address] [id number] [address] [place] [address] Aug, Primary insomnia F51.01 ; Mo od disorder F39 ; Nausea and vomiting, unspecified intactability, vomiting of unspecified type R11.2 and Diarrhea R19.7 [facility] [address] [id number] [address] [place] [address] Aug, [facility] [address] [id number] [address] [place] [address] Aug, Folliculitis L73.9 [facility] [address] [address] Aug, [facility] [id number] [place] [address] Aug, [facility] [id number] [place] [address] Jul, Folliculitis L73.9 [facility] [address] [id number] [address] [place] [address] Jul, [facility] [address] [address] Jun, Folliculitis L73.9 [facility] [address] [id number] [address] [place] [address] Jun, [facility] [address] [id number] [address] [place] [address] May, Polyneuropathy G62.9 [facility] [address] [id number] [address] [place] [address] May, Other specified diseases of anus and rectum K62.89 [facility] [address] [id number] [address] [place] [address] May, [facility] [id number] [place] [address] May, Primary insomnia F51.01 [facility] [address] [id number] [address] [place] [address] May, [facility] [address] [id number] [address] [place] [address] May, [facility] [address] [id number] [address] [place] [address] Apr, Other specified diseases of anus and rectum K62.89 ; Chronic fatigue R53.82 ; Urinary tract infection, site not specified N39.0 and Enterococcus as the cause of diseases classified elsewhere B95.2 [facility] [address] [id number] [address] [place] [id number] 16 Apr, 2015 [facility] [address] [id number] [address] [place] [address] 15 Apr, 2015 [facility] [address] [id number] [address] [place] [address] Apr, Unspecified inflammatory and toxic neuropathy 357.9 [facility] [address] [id number] [address] [place] [id number] 05 Apr, 2015 [facility] [address] [id number] [address] [place] [phone] 26 Mar, 2015 [facility] [address] [id number] [address] [place] [address] 23 Mar, 2015 [facility] [address] [id number] [address] [place] [address] 17 Mar, 2015 [facility] [address] [id number] [address] [place] [phone] 14 Mar, 2015 Unspecified inflammatory and toxic neuropathy 357.9 [facility] [address] [id number] [address] [place] [address] 12 Mar, 2015 [facility] [address] [id number] [address] [place] [phone] 11 Mar, 2015 [facility] [address] [id number] [address] [place] [address] Mar, [facility] [address] [id number] [address] [place] [address] Mar, [facility] [address] [id number] [address] [place] [address] Feb, [facility] [address] [id number] [address] [place] [address] Feb, [facility] [address] [id number] [address] [place] [phone] Feb, [facility] [address] [id number] [address] [place] [address] Jan, [facility] [address] [id number] [address] [place] [address] Jan, Nausea 787.02 and Neuropathy 355.9 [facility] [address] [id number] [address] [place] [address] Jan, [facility] [address] [id number] [address] [place] [address] Jan, [facility] [address] [id number] [address] [place] [address] Jan, [facility] [address] [id number] [address] [place] [id number] Jan, Dental examination V72.2 [facility] [address] [id number] [address] [place] [phone] Jan, [facility] [address] [id number] [address] [place] [address] Dec, [facility] [address] [id number] [address] [place] [address] Dec, [facility] [address] [id number] [address] [place] [address] Dec, Neuropathy 355.9 [facility] [address] [id number] [address] [place] [address], [place] [address] November, [facility] [address] [id number] [address] [place] [address], [place] [address] November, [facility] [address] [id number] [address] [place] [address], [place] [address] November, [facility] [address] [id number] [address] [place] [address], [place] [address] Oct, [facility] [address] [id number] [address] [place] [address], [place] [address] Oct, [facility] [address] [id number] [address] [place] [address], [place] [address] Sep, [facility] [address] [id number] [address] [place] [address], [place] [address] Sep, [facility] [address] [id number] [address] [place] [address], [place] [address] Sep, [facility] [address] [id number] [address] [place] [address], [place] [address] Sep, [facility] [address] [id number] [address] [place] [address], [place] [address] Sep, [facility] [address] [id number] [address] [place] [address], [place] [address] Sep, [facility] [address] [id number] [address] [place] [address], [place] [address] Sep, [facility] [address] [id number] [address] [place] [address], [place] [address] Sep, [facility] [address] [id number] [address] [place] [address], [place] [address] Aug, [facility] [address] [id number] [address] [place] [address], [place] [address] Aug, [facility] [address] [id number] [address] [place] [address], [place] [address] Aug, 2014 [facility] [address] [id number] [address] [place] [address], [place] [address] Aug, 2014 [facility] [address] [id number] [address] [place] [address], [place] [address] Aug, 2014 [facility] [address] [id number] [address] [place] [address], [place] [address] Aug, 2014 [facility] [address] [id number] [address] [place] [address], [place] [address] Aug, 2014 [facility] [address] [id number] [address] [place] [address], [place] [address] Aug, [facility] [address] [id number] [address] [place] [address], [place] [address] Jul, [facility] [address] [id number] [address] [place] [address], [place] [address] Jul, [facility] [address] [id number] [address] [place] [address], [place] [address] Jun, [facility] [address] [id number] [address] [place] [address], [place] [address] Jun, [facility] [address] [id number] [address] [place] [address], [place] [address] Jun, [facility] [address] [id number] [address] [place] [address], [place] [address] Jun, [facility] [address] [id number] [address] [place] [address], [place] [address] Jun, [facility] [address] [id number] [address] [place] [address], [place] [address] Jun, [facility] [address] [id number] [address] [place] [address], [place] [address] Jun, [facility] [address] [id number] [address] [place] [address], [place] [address] Jun, [facility] [address] [id number] [address] [place] [address], [place] [address] Jun, [facility] [address] [id number] [address] [place] [address], [place] [address] Jun, [facility] [address] [id number] [address] [place] [address], [place] [address] Jun, [facility] [address] [id number] [address] [place] [address], [place] [address] May, [facility] [address] [id number] [address] [place] [address], [place] [address] May, [facility] [address] [id number] [address] [place] [address], [place] [address] May, [facility] [address] [id number] [address] [place] [address], [place] [address] May, [facility] [address] [id number] [address] [place] [address], [place] [address] May, [facility] [address] [id number] [address] [place] [address], [place] [address] May, [facility] [address] [id number] [address] [place] [address], [place] [address] May, [facility] [address] [id number] [address] [place] [address], [place] [address] May, [facility] [address] [id number] [address] [place] [address], [place] [address] May, [facility] [address] [id number] [address] [place] [address], [place] [address] Apr, [facility] [address] [id number] [address] [place] [address], [place] [address] Apr, [facility] [address] [id number] [address] [place] [address], [place] [address] Apr, [facility] [address] [id number] [address] [place] [address], [place] [address] Apr, [facility] [address] [id number] [facility] [address] Apr, [facility] [address] [id number] [address] [place] [address], [place] [address] Mar, [facility] [address] [id number] [address] [place] [address], [place] [address] Mar, [facility] [address] [id number] [address] [place] [address], [place] [address] Feb, [facility] [address] [id number] [address] [place] [address], [place] [address] Feb, [facility] [address] [id number] [address] [place] [address], [place] [address] Feb, [facility] [address] [id number] [address] [place] [address], [place] [address] Feb, [facility] [address] [id number] [address] [place] [address], [place] [address] Feb, [facility] [address] [id number] [address] [place] [address], [place] [address] Feb, [facility] [address] [id number] [address] [place] [address], [place] [address] Jan, [facility] [address] [id number] [address] [place] [address], [place] [address] Jan, [facility] [address] [id number] [address] [place] [address], [place] [address] Jan, [facility] [address] [id number] [address] [place] [address], [place] [address] Jan, [facility] [address] [id number] [address] [place] [address], [place] [address] Jan, [facility] [address] [id number] [address] [place] [address], [place] [address] Jan, [facility] [address] [id number] [address] [place] [address], [place] [address] Jan, [facility] [address] [id number] [facility] [address] Jan, [facility] [address] [id number] [facility] [address] Jan, [facility] [address] [id number] [facility] [address] Jan, [facility] [address] [id number] [address] [place] [address], [place] [address] Jan, [facility] [address] [id number] [address] [place] [address], [place] [address] Dec, [facility] [address] [id number] [address] [place] [address], [place] [address] Dec, [facility] [address] [id number] [address] [place] [address], [place] [address] Dec, [facility] [address] [id number] [address] [place] [address], [place] [address] Dec, [facility] [address] [id number] [address] [place] [address], [place] [address] Dec, [facility] [address] [id number] [address] [place] [address], [place] [address] Dec, [facility] [address] [id number] [address] [place] [address], [place] [address] November, [facility] [address] [id number] [address] [place] [address], [place] [address] November, [facility] [address] [id number] [address] [place] [address], [place] [address] November, [facility] [address] [id number] [address] [place] [address], [place] [address] November, [facility] [address] [id number] [address] [place] [address], [place] [address] November, [facility] [address] [id number] [facility] [address] November, [facility] [address] [id number] [facility] [address] Oct, [facility] [address] [id number] [facility] [address] Oct, [facility] [address] [id number] [address] [place] [address], [place] [address] Oct, [facility] [address] [id number] [address] [place] [address], [place] [address] Oct, [facility] [address] [id number] [address] [place] [address], [place] [address] Sep, [facility] [address] [id number] [address] [place] [address], [place] [address] Sep, [facility] [address] [id number] [address] [place] [address], [place] [address] Sep, [facility] [address] [id number] [address] [place] [address], [place] [address] Sep, [facility] [address] [id number] [address] [place] [address], [place] [address] Sep, [facility] [address] [id number] [address] [place] [address], [place] [address] Aug, [facility] [address] [id number] [address] [place] [address], [place] [address] Aug, [facility] [address] [id number] [address] [place] [address], [place] [address] Aug, [facility] [address] [id number] [address] [place] [address], [place] [address] 17 Aug, 2013 [facility] [address] [id number] [address] [place] [address], [place] [address] 14 Aug, 2013 [facility] [address] [place] [id number] May, [facility] [address] [id number] [address] [place] [address], [place] [address] May, [facility] [address] [id number] [address] [place] [id number] May, [facility] [address] [id number] [address] [place] [address], [place] [address] May, [facility] [address] [id number] [address] [place] [address] May, [facility] [address] [id number] [address] [place] [address], [place] [address] Apr, [facility] [address] [id number] [address] [place] [address] Apr, [facility] [address] [id number] [address] [place] [address], [place] [address] Apr, [facility] [address] [id number] [address] [place] [address] Apr, [facility] [address] [id number] [address] [place] [address] Apr, [facility] [address] [id number] [address] [place] [address] Apr, [facility] [address] [id number] [address] [place] [phone] Apr, [facility] [address] [id number] [address] [place] [id number] 28 Mar, 2013 [facility] [address] [id number] [address] [place] [phone] 25 Mar, 2013 [facility] [address] [id number] [address] [place] [phone] 24 Mar, 2013 [facility] [address] [id number] [address] [place] [phone] 16 Mar, 2013 [facility] [address] [id number] [address] [place] [address], [place] [address] Mar, [facility] [address] [id number] [address] [place] [address], [place] [address] Mar, [facility] [address] [id number] [address] [place] [address], [place] [address] Feb, [facility] [address] [id number] [address] [place] [address], [place] [address] Feb, [facility] [address] [id number] [address] [place] [address], [place] [address] Feb, [facility] [address] [id number] [address] [place] [address], [place] [address] Feb, [facility] [address] [id number] [address] [place] [address], [place] [address] Feb, [facility] [address] [id number] [address] [place] [address], [place] [address] Feb, [facility] [address] [id number] [address] [place] [address], [place] [address] Jan, [facility] [address] [id number] [address] [place] [address], [place] [address] Dec, [facility] [address] [id number] [address] [place] [address], [place] [address] Dec, [facility] [address] [id number] [address] [place] [address], [place] [address] Dec, [facility] [address] [id number] [address] [place] [address], [place] [address] Dec, [facility] [address] [id number] [address] [place] [address], [place] [address] Dec, [facility] [address] [id number] [address] [place] [address], [place] [address] 18 Dec, 2012 [facility] [address] [id number] [address] [place] [address], [place] [address] 17 Dec, 2012 [facility] [address] [id number] [address] [place] [address], [place] [address] Dec, [facility] [address] [id number] [address] [place] [address], [place] [address] Dec, [facility] [address] [id number] [address] [place] [address], [place] [address] November, [facility] [address] [id number] [address] [place] [address], [place] [address] November, [facility] [address] [id number] [address] [place] [address], [place] [address] Oct, [facility] [address] [id number] [address] [place] [address], [place] [address] Sep, [facility] [facility] [address] [id number] [address] [place] [address], [place] [address] Sep, [facility] [address] [id number] [address] [place] [address], [place] [address] Sep, [facility] [address] [id number] [address] [place] [address], [place] [address] Sep, [facility] [address] [id number] [address] [place] [address], [place] [address] Aug, [facility] [address] [id number] [address] [place] [address], [place] [address] Aug, [facility] [address] [id number] [address] [place] [address], [place] [address] Jul, [facility] [address] [id number] [address] [place] [address], [place] [address] Jul, [facility] [address] [id number] [address] [place] [address], [place] [address] Jul, [facility] [address] [id number] [address] [place] [address], [place] [address] Sep, [facility] [address] [id number] [address] [place] [id number] Sep, [facility] [address] [facility] [id number] [address] [address] Sep, IMMUNIZATIONS No Known Immunizations SOCIAL HISTORY [...] bowel obstruction, Dehydration -[facility] 01/01/17 Hospitalization History [facility]- UTI/Sepsis 01/18/2018 Hospitalization History [facility] - infection 4 days 05/2018
--- OUTSIDE RECORDS SUMMARY | 2020-01-14 23:23 | XMS REPORT ---
Author Author Melvin BENTLEY Organization [facility] Address [address] [place] [address] Care Team Providers Care Stack Clerk Name Role Phone LINDA BENTLEY Unavailable PROBLEMS Type Condition ICD9-CM Code VVM70-OH Code Onset Dates Condition S tatus SNOMED Code Problem Incontinence of feces, unspecified fecal incontinence type R15.9 Active 22125290 Problem Primary insomnia F51.01 Active 193 417912 Problem Hydronephrosis with ureteral stricture, not else where classified N13.1 Active 65584384 Problem Chronic fatigue, unspecified R53.82 A ctive 439805892 Problem Hypertension, benign I10 Active 08200163 Problem Mood disorder F39 Active 844625 05 Problem Neuropathy G62.9 Active 571977932 Problem Chronic pain syndrome G89.4 Active 115046462 Problem Abdominal pain, left lower quadrant R10.32 Active 109393202 Problem 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 Active 950257978 Problem 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 272951783 Problem Anxiety F41.9 Active 41588830 Problem Polyneuropathy G62.9 Active 66580 000 Problem Malignant neoplasm of colon, unspecified part of colon C18.9 Active 972729524 Problem Attention to urostomy Z43.6 Active 210948120 ALLERGIES No Information ENCOUNTERS Encounter Location Date Diagnosis [facility] [address] [facility] [id number] [address] [place] [phone] 16 Oct, 2019 Attention to urostomy Z43.6 and Hypertension, benign I10 [facility] [address] [facility] [id number] [address] [place] [phone] 15 Oct, 2019 [facility] [address] [facility] [id number] [address] [place] [address] 14 Oct, 2019 Neuropathy G62.9 ; Anxiety F 41.9 and Encounter for Medicare annual wellness exam Z00.00 [facility] [address] [id number] [address] [place] [address] 10 Sep, 2019 Neuropathy G62.9 ; Anxiety F 41.9 and Encounter for Medicare annual wellness exam Z00.00 [facility] [address] [id number] [address] [place] [address] 12 Aug, 2019 Anxiety F41.9 ; Neuropathy G 62.9 and Encounter for Medicare annual wellness exam Z00.00 [facility] [address] [id number] [address] [place] [address] 31 Jul, 2019 [facility] [address] [id number] [address] [place] [address] Jul, Primary insomnia F51.01 and Anxiety F41.9 [facility] [address] [id number] [address] [place] [address] 14 Jul, 2019 Primary insomnia F51.01 ; Ne uropathy G62.9 and Encounter for Medicare annual wellness exam Z00.00 [facility] [address] [id number] [address] [place] [address] Jun, Neuropathy G62.9 and Encount er for Medicare annual wellness exam Z00.00 [facility] [address] [id number] [address] [place] [address] 18 Jun, 2019 Primary insomnia F51.01 [facility] [address] [id number] [address] [place] [address] 17 Jun, 2019 Primary insomnia F51.01 ; En counter for Medicare annual wellness exam Z00.00 and Neuropathy G62.9 [facility] [address] [id number] [address] [place] [address] Jun, Malignant neoplasm of colon, unspecified part of colon C18.9 and Chronic fatigue, unspecified R53.82 [facility] [address] [id number] [address] [place] [address] May, Neuropathy G62.9 and Encount er for Medicare annual wellness exam Z00.00 [facility] [address] [id number] [address] [place] [address] 15 May, 2019 Primary insomnia F51.01 [facility] [address] [id number] [address] [place] [address] May, Neuropathy G62.9 and Anxiety F41.9 [facility] [address] [id number] [address] [place] [address] 30 Apr, 2019 Encounter for Medicare annua l wellness exam Z00.00 [facility] [address] [id number] [address] [place] [address] 16 Apr, 2019 Neuropathy G62.9 and Encount er for Medicare annual wellness exam Z00.00 [facility] [address] [id number] [address] [place] [address] 26 Mar, 2019 Neuropathy G62.9 and Primary insomnia F51.01 [facility] [address] [id number] [address] [place] [address] Mar, [facility] [address] [id number] [address] [place] [address] Feb, Primary insomnia F51.01 ; Ne uropathy G62.9 and Encounter for Medicare annual wellness exam Z00.00 [facility] [address] [id number] [address] [place] [address] Feb, Neuropathy G62.9 and Encount er for Medicare annual wellness exam Z00.00 [facility] [address] [id number] [address] [place] [address] Feb, Primary insomnia F51.01 and High risk medication use Z79.899 [facility] [address] [id number] [address] [place] [address] Jan, [facility] [address] [id number] [address] [place] [address] Jan, Neuropathy G62.9 [facility] [address] [id number] [address] [place] [address] Dec, [facility] [address] [id number] [address] [place] [address] Dec, Encounter for Medicare annua l wellness exam Z00.00 and Neuropathy G62.9 [facility] [address] [id number] [address] [place] [address] November, [facility] [address] [id number] [address] [place] [address] November, Encounter for Medicare annua l wellness exam Z00.00 ; 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 ; Mood disorder F39 ; Chronic fatigue, unspecified R53.82 and Neuropathy G62.9 [facility] [address] [id number] [address] [place] [address] November, Neuropathy G62.9 [facility] [address] [id number] [address] [place] [address] Oct, Neuropathy G62.9 [facility] [address] [id number] [address] [place] [address] Oct, Hypertension, benign I10 and Anxiety F41.9 [facility] [address] [id number] [address] [place] [address] Oct, [facility] [address] [id number] [address] [place] [address] Oct, [facility] [address] [id number] [address] [place] [address] Oct, [facility] [address] [id number] [address] [place] [address] Oct, Neuropathy G62.9 [facility] [address] [id number] [address] [place] [address] Sep, [facility] [address] [id number] [address] [place] [address] Sep, Neuropathy G62.9 [facility] [address] [id number] [address] [place] [address] Sep, [facility] [address] [facility] [id number] [address] [place] [address] Sep, H/O malignant carcinoid tumo r of rectum Z85.040 and Primary insomnia F51.01 [facility] [address] [id number] [address] [place] [address] Aug, [facility] [address] [id number] [address] [place] [address] Aug, Neuropathy G62.9 [facility] [address] [id number] [address] [place] [address] Aug, [facility] [address] [facility] [id number] [address] [place] [address] Jul, Non-recurrent acute suppurat francine otitis media of left ear without spontaneous rupture of tympanic membrane H66.002 [facility] [address] [facility] [id number] [address] [place] [address] Jul, Neuropathy G62.9 [facility] [address] [facility] [id number] [address] [place] [address] Jun, [facility] [address] [facility] [id number] [address] [place] [address] Jun, [facility] [address] [facility] [id number] [address] [place] [address] Jun, Neuropathy G62.9 [facility] [address] [facility] [id number] [address] [place] [address] Jun, [facility] [address] [facility] [id number] [address] [place] [address] Jun, [facility] [address] [facility] [id number] [address] [place] [address] Jun, Lumbar neuritis M54.16 [facility] [address] [facility] [id number] [address] [place] [address] May, Neuropathy G62.9 [facility] [address] [place] [id number] [address] [place] [address] May, [facility] [address] [id number] [address] [place] [address] 05 May, 2018 Neuropathy G62.9 and Hyperte nsion, benign I10 [facility] [id number] [place] [address] Apr, Polyneuropathy G62.9 and Hyp ertension, benign I10 [facility] [id number] [place] [address] 17 Mar, 2018 Chronic pain syndrome G89.4 and Hypertension, benign I10 [place] [id number] [place] [address] Mar, Polyneuropathy G62.9 and Hyp ertension, benign I10 [facility] [address] [place] [id number] [address] [place] [address] Feb, [facility] [address] [address] Feb, Hypertension, benign I10 [facility] [id number] [place] [address] Feb, Hypertension, benign I10 ; P olyneuropathy G62.9 and Primary insomnia F51.01 [facility] [address] [id number] [address] [place] [address] Jan, Hypertension, benign I10 and Polyneuropathy G62.9 [facility] [address] [id number] [address] [place] [address] Jan, Hypertension, benign I10 and Neuropathy G62.9 [facility] [address] [id number] [address] [place] [address] Jan, [facility] [address] [id number] [address] [place] [address] Dec, Polyneuropathy G62.9 [facility] [address] [id number] [address] [place] [address] Dec, Mood disorder F39 [facility] [address] [id number] [address] [place] [address] November, Polyneuropathy G62.9 [facility] [address] [facility] [id number] [address] [place] [address] November, Medicare annual wellness vis it, initial Z00.00 [facility] [address] [id number] [address] [place] [address] November, Mood disorder F39 [facility] [address] [id number] [address] [place] [address] Oct, Polyneuropathy G62.9 [facility] [address] [facility] [id number] [address] [place] [address] Oct, [facility] [address] [facility] [id number] [address] [place] [address] Oct, [facility] [address] [facility] [id number] [address] [place] [address] Oct, Mood disorder F39 ; Attentio n to urostomy Z43.6 ; Chronic pain syndrome G89.4 and Polyneuropathy G62.9 [facility] [address] [facility] [id number] [address] [place] [address] Sep, Polyneuropathy G62.9 [facility] [address] [id number] [address] [place] [address] Sep, [facility] [address] [id number] [address] [place] [address] Sep, Polyneuropathy G62.9 [facility] [address] [facility] [id number] [address] [place] [address] Aug, Polyneuropathy G62.9 [facility] [address] [facility] [id number] [address] [place] [address] Aug, Malignant neoplasm of colon, unspecified part of colon C18.9 and Polyneuropathy G62.9 [facility] [address] [facility] [id number] [address] [place] [address] Aug, Neuropathy G62.9 and Polyneu ropathy G62.9 [facility] [address] [facility] [id number] [address] [place] [address] Jul, Encounter for drug screening Z02.83 [facility] [address] [id number] [address] [place] [address] Jul, Polyneuropathy G62.9 [facility] [address] [facility] [id number] [address] [place] [address] Jul, [facility] [address] [facility] [id number] [address] [place] [address] Jul, Neuropathy G62.9 and Anxiety F41.9 [facility] [address] [facility] [id number] [address] [place] [address] Jul, [facility] [address] [facility] [id number] [address] [place] [address] Jul, [facility] [address] [facility] [id number] [address] [place] [address] Jul, [facility] [address] [facility] [id number] [address] [place] [address] Jul, Polyneuropathy G62.9 [facility] [address] [id number] [address] [place] [address] Jul, [facility] [address] [facility] [id number] [address] [place] [address] Jun, [facility] [address] [facility] [id number] [address] [place] [address] Jun, [facility] [address] [facility] [id number] [address] [place] [address] Jun, [facility] [address] [id number] [place] [address] 07 Jun, 2017 Encounter for dental examina tion Z01.20 [facility] [address] [id number] [address] [place] [address] Jun, Polyneuropathy G62.9 and Anx iety F41.9 [facility] [address] [id number] [address] [place] [address] Jun, [facility] [address] [id number] [place] [address] May, Dental examination Z01.20 [facility] [address] [id number] [address] [place] [address] May, Polyneuropathy G62.9 [place] [address] [place] [id number] [address] [place] [address] Apr, Polyneuropathy G62.9 [facility] [address] [id number] [address] [place] [address] Apr, Polyneuropathy G62.9 [facility] [id number] [place] [address] Apr, Hypertension, benign I10 ; P olyneuropathy G62.9 and Anxiety F41.9 [place] [address] [id number] [address] [place] [address] Apr, Primary insomnia F51.01 and Polyneuropathy G62.9 [facility] [address] [id number] [address] [place] [address] Apr, Primary insomnia F51.01 and Polyneuropathy G62.9 [facility] [address] [id number] [address] [place] [address] Mar, Primary insomnia F51.01 [facility] [address] [id number] [address] [place] [address] Mar, [place] [address] [id number] [address] [place] [address], [place] [address] Mar, Polyneuropathy G62.9 [facility] [address] [id number] [address] [place] [address], [place] [address] Feb, Primary insomnia F51.01 [facility] [address] [id number] [address] [place] [address], [place] [address] Feb, [facility] [address] [id number] [address] [place] [address], [place] [address] Feb, [facility] [address] [id number] [address] [place] [address], [place] [address] Feb, Polyneuropathy G62.9 [facility] [address] [id number] [address] [place] [address], [place] [address] Feb, Primary insomnia F51.01 [facility] [address] [id number] [address] [place] [address], [place] [address] Jan, [facility] [address] [id number] [address] [place] [address], [place] [address] Jan, [facility] [address] [id number] [address] [place] [address], [place] [address] Dec, [facility] [address] [id number] [address] [place] [address] Dec, Primary insomnia F51.01 [facility] [address] [id number] [address] [place] [address], [place] [address] Dec, Primary insomnia F51.01 [facility] [address] [id number] [address] [place] [address], [place] [address] Dec, [facility] [address] [id number] [address] [place] [address] Dec, [facility] [address] [id number] [address] [place] [address] Dec, [facility] [address] [id number] [address] [place] [address] Dec, [facility] [address] [facility] [id number] [address] [place] [address] November, Primary insomnia F51.01 and Polyneuropathy G62.9 [facility] [address] [id number] [address] [place] [address] November, [facility] [address] [facility] [id number] [address] [place] [address] November, Abdominal pain, left lower q uadrant R10.32 [facility] [address] [facility] [id number] [address] [place] [address] November, [facility] [address] [facility] [id number] [address] [place] [address] Oct, [facility] [address] [facility] [id number] [address] [place] [address] Oct, Abdominal pain, left lower q uadrant R10.32 ; H/O malignant carcinoid tumor of rectum Z85.040 and Neuropathy G62.9 [facility] [address] [facility] [id number] [address] [place] [address] Oct, [facility] [address] [facility] [id number] [address] [place] [address] Sep, [facility] [id number] [place] [address] [id number] Sep, [facility] [address] [facility] [id number] [address] [place] [address] Sep, [facility] [address] [facility] [id number] [address] [place] [address] Aug, [facility] [address] [facility] [id number] [address] [place] [address] Aug, [facility] [address] [facility] [id number] [address] [place] [address] Aug, Abdominal pain, left lower q uadrant R10.32 ; Neuropathy G62.9 and Anxiety F41.9 [facility] [address] [id number] [place] [address] Jul, [facility] [address] [id number] [address] [place] [address] Jul, [facility] [address] [id number] [address] [place] [address] Jul, [facility] [address] [id number] [address] [place] [address] Jul, [facility] [address] [id number] [address] [place] [id number] Jul, [facility] [address] [id number] [address] [place] [phone] Jun, [facility] [address] [id number] [address] [place] [phone] May, [facility] [address] [id number] [address] [place] [id number] May, [facility] [address] [id number] [address] [place] [id number] Apr, [facility] [address] [facility] [id number] [address] [place] [id number] Apr, Muscle spasms of both lower extremities M62.838 and Cellulitis, unspecified cellulitis site L03.90 [facility] [address] [id number] [address] [place] [phone] Apr, [facility] [address] [id number] [address] [place] [id number] 23 Mar, 2016 Generalized abdominal pain R 10.84 [facility] [address] [id number] [address] [place] [id number] 20 Mar, 2016 [facility] [address] [facility] [id number] [address] [place] [id number] 14 Mar, 2016 [facility] [address] [id number] [address] [place] [id number] 14 Mar, 2015 [facility] [address] [id number] [address] [place] [id number] 13 Mar, 2016 [facility] [address] [id number] [address] [place] [phone] 12 Mar, 2016 [facility] [address] [id number] [address] [place] [id number] 09 Mar, 2016 [facility] [address] [id number] [address] [place] [id number] 06 Mar, 2016 [facility] [address] [id number] [address] [place] [id number] Feb, Other specified diseases of anus and rectum K62.89 [facility] [address] [id number] [address] [place] [id number] Feb, [facility] [address] [id number] [address] [place] [id number] Feb, Dizziness R42 [facility] [address] [id number] [address] [place] [phone] Feb, [facility] [address] [id number] [address] [place] [id number] Jan, Polyneuropathy G62.9 [facility] [address] [id number] [address] [place] [id number] Jan, Other specified diseases of anus and rectum K62.89 [facility] [address] [id number] [address] [place] [phone] Jan, [facility] [address] [id number] [address] [place] [id number] 16 Jan, 2016 [facility] [address] [id number] [address] [place] [id number] 15 Jan, 2016 [facility] [address] [id number] [address] [place] [id number] Jan, Dizziness R42 [facility] [address] [id number] [address] [place] [address], [place] [phone] Dec, [facility] [address] [id number] [address] [place] [address], [place] [id number] Dec, [facility] [facility] [address] [id number] [address] [place] [address], [place] [address] Dec, [facility] [address] [id number] [address] [place] [address], [place] [address] Dec, Dizziness R42 [facility] [address] [id number] [address] [place] [address], [place] [address] November, [facility] [address] [id number] [address] [place] [address], [place] [address] Oct, [facility] [address] [id number] [address] [place] [address], [place] [address] Oct, [facility] [address] [id number] [address] [place] [address], [place] [address] Oct, [facility] [address] [id number] [address] [place] [address], [place] [address] Oct, [facility] [address] [id number] [address] [place] [address], [place] [address] Sep, [facility] [address] [id number] [address] [place] [address], [place] [address] Sep, Primary insomnia F51.01 [facility] [address] [id number] [address] [place] [address], [place] [address] Sep, Primary insomnia F51.01 [facility] [address] [id number] [address] [place] [address], [place] [address] Sep, [facility] [address] [id number] [address] [place] [address], [place] [address] Aug, [facility] [address] [id number] [place] [address] Aug, [facility] [address] [id number] [address] [place] [address] Aug, Primary insomnia F51.01 ; Mo od disorder F39 ; Nausea and vomiting, unspecified intactability, vomiting of unspecified type R11.2 and Diarrhea R19.7 [facility] [address] [id number] [address] [place] [address] Aug, [facility] [address] [id number] [address] [place] [address] Aug, Folliculitis L73.9 [facility] [address] [address] Aug, [facility] [id number] [place] [address] Aug, [facility] [id number] [place] [address] Jul, Folliculitis L73.9 [facility] [address] [id number] [address] [place] [address] Jul, [facility] [address] [address] Jun, Folliculitis L73.9 [facility] [address] [id number] [address] [place] [address] Jun, [facility] [address] [id number] [address] [place] [address] May, Polyneuropathy G62.9 [facility] [address] [id number] [address] [place] [address] May, Other specified diseases of anus and rectum K62.89 [facility] [address] [id number] [address] [place] [address] May, [facility] [id number] [place] [address] May, Primary insomnia F51.01 [facility] [address] [id number] [address] [place] [address] May, [facility] [address] [id number] [address] [place] [address] May, [facility] [address] [id number] [address] [place] [address] Apr, Other specified diseases of anus and rectum K62.89 ; Chronic fatigue R53.82 ; Urinary tract infection, site not specified N39.0 and Enterococcus as the cause of diseases classified elsewhere B95.2 [facility] [address] [id number] [address] [place] [address] 16 Apr, 2015 [facility] [address] [id number] [address] [place] [address] 15 Apr, 2015 [facility] [address] [id number] [address] [place] [address] Apr, Unspecified inflammatory and toxic neuropathy 357.9 [facility] [address] [id number] [address] [place] [address] 05 Apr, 2015 [facility] [address] [id number] [address] [place] [address] 26 Mar, 2015 [facility] [address] [id number] [address] [place] [address] 23 Mar, 2015 [facility] [address] [id number] [address] [place] [address] 17 Mar, 2015 [facility] [address] [id number] [address] [place] [address] 14 Mar, 2015 Unspecified inflammatory and toxic neuropathy 357.9 [facility] [address] [id number] [address] [place] [address] 12 Mar, 2015 [facility] [address] [id number] [address] [place] [address] 11 Mar, 2015 [facility] [address] [id number] [address] [place] [address] Mar, [facility] [address] [id number] [address] [place] [address] Mar, [facility] [address] [id number] [address] [place] [address] Feb, [facility] [address] [id number] [address] [place] [address] Feb, [facility] [address] [id number] [address] [place] [address] Feb, [facility] [address] [id number] [address] [place] [address] Jan, [facility] [address] [id number] [address] [place] [address] Jan, Nausea 787.02 and Neuropathy 355.9 [facility] [address] [id number] [address] [place] [address] Jan, [facility] [address] [id number] [address] [place] [address] Jan, [facility] [address] [id number] [address] [place] [address] Jan, [facility] [address] [id number] [address] [place] [id number] Jan, Dental examination V72.2 [facility] [address] [id number] [address] [place] [address] Jan, [facility] [address] [id number] [address] [place] [address] Dec, [facility] [address] [id number] [address] [place] [address] Dec, [facility] [address] [id number] [address] [place] [address] Dec, Neuropathy 355.9 [facility] [address] [id number] [address] [place] [address], [place] [address] November, [facility] [address] [id number] [address] [place] [address], [place] [address] November, [facility] [address] [id number] [address] [place] [address], [place] [address] November, [facility] [address] [id number] [address] [place] [address], [place] [address] Oct, [facility] [address] [id number] [address] [place] [address], [place] [address] Oct, [facility] [address] [id number] [address] [place] [address], [place] [address] Sep, [facility] [address] [id number] [address] [place] [address], [place] [address] Sep, [facility] [address] [id number] [address] [place] [address], [place] [address] Sep, [facility] [address] [id number] [address] [place] [address], [place] [address] Sep, [facility] [address] [id number] [address] [place] [address], [place] [address] Sep, [facility] [address] [id number] [address] [place] [address], [place] [address] Sep, [facility] [address] [id number] [address] [place] [address], [place] [address] Sep, [facility] [address] [id number] [address] [place] [address], [place] [address] Sep, [facility] [address] [id number] [address] [place] [address], [place] [address] Aug, [facility] [address] [id number] [address] [place] [address], [place] [address] Aug, [facility] [address] [id number] [address] [place] [address], [place] [address] Aug, 2014 [facility] [address] [id number] [address] [place] [address], [place] [address] Aug, 2014 [facility] [address] [id number] [address] [place] [address], [place] [address] Aug, 2014 [facility] [address] [id number] [address] [place] [address], [place] [address] Aug, 2014 [facility] [address] [id number] [address] [place] [address], [place] [address] Aug, 2014 [facility] [address] [id number] [address] [place] [address], [place] [address] Aug, [facility] [address] [id number] [address] [place] [address], [place] [address] Jul, [facility] [address] [id number] [address] [place] [address], [place] [address] Jul, [facility] [address] [id number] [address] [place] [address], [place] [address] Jun, [facility] [address] [id number] [address] [place] [address], [place] [address] Jun, [facility] [address] [id number] [address] [place] [address], [place] [address] Jun, [facility] [address] [id number] [address] [place] [address], [place] [address] Jun, [facility] [address] [id number] [address] [place] [address], [place] [address] Jun, [facility] [address] [id number] [address] [place] [address], [place] [address] Jun, [facility] [address] [id number] [address] [place] [address], [place] [address] Jun, [facility] [address] [id number] [address] [place] [address], [place] [address] Jun, [facility] [address] [id number] [address] [place] [address], [place] [address] Jun, [facility] [address] [id number] [address] [place] [address], [place] [address] Jun, [facility] [address] [id number] [address] [place] [address], [place] [address] Jun, [facility] [address] [id number] [address] [place] [address], [place] [address] May, [facility] [address] [id number] [address] [place] [address], [place] [address] May, [facility] [address] [id number] [address] [place] [address], [place] [address] May, [facility] [address] [id number] [address] [place] [address], [place] [address] May, [facility] [address] [id number] [address] [place] [address], [place] [address] May, [facility] [address] [id number] [address] [place] [address], [place] [address] May, [facility] [address] [id number] [address] [place] [address], [place] [address] May, [facility] [address] [id number] [address] [place] [address], [place] [address] May, [facility] [address] [id number] [address] [place] [address], [place] [address] May, [facility] [address] [id number] [address] [place] [address], [place] [address] Apr, [facility] [address] [id number] [address] [place] [address], [place] [address] Apr, [facility] [address] [id number] [address] [place] [address], [place] [address] Apr, [facility] [address] [id number] [address] [place] [address], [place] [address] Apr, [facility] [address] [id number] [facility] [place] [address] Apr, [facility] [address] [id number] [address] [place] [address], [place] [address] Mar, [facility] [address] [id number] [address] [place] [address], [place] [address] Mar, [facility] [address] [id number] [address] [place] [address], [place] [address] Feb, [facility] [address] [id number] [address] [place] [address], [place] [address] Feb, [facility] [address] [id number] [address] [place] [address], [place] [address] Feb, [facility] [address] [id number] [address] [place] [address], [place] [address] Feb, [facility] [address] [id number] [address] [place] [address], [place] [address] Feb, [facility] [address] [id number] [address] [place] [address], [place] [address] Feb, [facility] [address] [id number] [address] [place] [address], [place] [address] Jan, [facility] [address] [id number] [address] [place] [address], [place] [address] Jan, [facility] [address] [id number] [address] [place] [address], [place] [address] Jan, [facility] [address] [id number] [address] [place] [address], [place] [address] Jan, [facility] [address] [id number] [address] [place] [address], [place] [address] Jan, [facility] [address] [id number] [address] [place] [address], [place] [address] Jan, [facility] [address] [id number] [address] [place] [address], [place] [address] Jan, [facility] [address] [id number] [facility] [place] [address] Jan, [facility] [address] [id number] [facility] [place] [address] Jan, [facility] [address] [id number] [facility] [place] [address] Jan, [facility] [address] [id number] [address] [place] [address], [place] [address] Jan, [facility] [address] [id number] [address] [place] [address], [place] [address] Dec, [facility] [address] [id number] [address] [place] [address], [place] [address] Dec, [facility] [address] [id number] [address] [place] [address], [place] [address] Dec, [facility] [address] [id number] [address] [place] [address], [place] [address] Dec, [facility] [address] [id number] [address] [place] [address], [place] [address] Dec, [facility] [address] [id number] [address] [place] [address], [place] [address] Dec, [facility] [address] [id number] [address] [place] [address], [place] [address] November, [facility] [address] [id number] [address] [place] [address], [place] [address] November, [facility] [address] [id number] [address] [place] [address], [place] [address] November, [facility] [address] [id number] [address] [place] [address], [place] [address] November, [facility] [address] [id number] [address] [place] [address], [place] [address] November, [facility] [address] [id number] [facility] [place] [address] November, [facility] [address] [id number] [facility] [place] [address] Oct, [facility] [address] [id number] [facility] [place] [address] Oct, [facility] [address] [id number] [address] [place] [address], [place] [address] Oct, [facility] [address] [id number] [address] [place] [address], [place] [address] Oct, [facility] [address] [id number] [address] [place] [address], [place] [address] Sep, [facility] [address] [id number] [address] [place] [address], [place] [address] Sep, [facility] [address] [id number] [address] [place] [address], [place] [address] Sep, [facility] [address] [id number] [address] [place] [address], [place] [address] Sep, [facility] [address] [id number] [address] [place] [address], [place] [address] Sep, [facility] [address] [id number] [address] [place] [address], [place] [address] Aug, [facility] [address] [id number] [address] [place] [address], [place] [address] Aug, [facility] [address] [id number] [address] [place] [address], [place] [address] Aug, [facility] [address] [id number] [address] [place] [address], [place] [address] 17 Aug, 2013 [facility] [address] [id number] [address] [place] [address], [place] [address] 14 Aug, 2013 [facility] [place] [id number] May, [facility] [address] [id number] [address] [place] [address], [place] [address] May, [facility] [address] [id number] [address] [place] [address] May, [facility] [address] [id number] [address] [place] [address], [place] [address] May, [facility] [address] [id number] [address] [place] [address] May, [facility] [address] [id number] [address] [place] [address], [place] [address] Apr, [facility] [address] [id number] [address] [place] [address] Apr, [facility] [address] [id number] [address] [place] [address], [place] [address] Apr, [facility] [address] [id number] [address] [place] [address] Apr, [facility] [address] [id number] [address] [place] [address] Apr, [facility] [address] [id number] [address] [place] [address] Apr, [facility] [address] [id number] [address] [place] [address] Apr, [facility] [address] [id number] [address] [place] [address] 28 Mar, 2013 [facility] [address] [id number] [address] [place] [address] 25 Mar, 2013 [facility] [address] [id number] [address] [place] [address] 24 Mar, 2013 [facility] [address] [id number] [address] [place] [address] 16 Mar, 2013 [facility] [address] [id number] [address] [place] [address], [place] [address] Mar, [facility] [address] [id number] [address] [place] [address], [place] [address] Mar, [facility] [address] [id number] [address] [place] [address], [place] [address] Feb, [facility] [address] [id number] [address] [place] [address], [place] [address] Feb, [facility] [address] [id number] [address] [place] [address], [place] [address] Feb, [facility] [address] [id number] [address] [place] [address], [place] [address] Feb, [facility] [address] [id number] [address] [place] [address], [place] [address] Feb, [facility] [address] [id number] [address] [place] [address], [place] [address] Feb, [facility] [address] [id number] [address] [place] [address], [place] [address] Jan, [facility] [address] [id number] [address] [place] [address], [place] [address] Dec, [facility] [address] [id number] [address] [place] [address], [place] [address] Dec, [facility] [address] [id number] [address] [place] [address], [place] [address] Dec, [facility] [address] [id number] [address] [place] [address], [place] [address] Dec, [facility] [address] [id number] [address] [place] [address], [place] [address] Dec, [facility] [address] [id number] [address] [place] [address], [place] [address] 18 Dec, 2012 [facility] [address] [id number] [address] [place] [address], [place] [address] 17 Dec, 2012 [facility] [address] [id number] [address] [place] [address], [place] [address] Dec, [facility] [address] [id number] [address] [place] [address], [place] [address] Dec, [facility] [address] [id number] [address] [place] [address], [place] [address] November, [facility] [address] [id number] [address] [place] [address], [place] [address] November, [facility] [address] [id number] [address] [place] [address], [place] [address] Oct, [facility] [address] [id number] [address] [place] [address], [place] [address] Sep, [facility] [address] [id number] [address] [place] [address], [place] [address] Sep, [facility] [address] [id number] [address] [place] [address], [place] [address] Sep, [facility] [address] [id number] [address] [place] [address], [place] [address] Sep, [facility] [address] [id number] [address] [place] [address], [place] [address] Aug, [facility] [address] [id number] [address] [place] [address], [place] [address] Aug, [facility] [address] [id number] [address] [place] [address], [place] [address] Jul, [facility] [address] [id number] [address] [place] [address], [place] [address] Jul, [facility] [address] [id number] [address] [place] [address], [place] [address] Jul, [facility] [address] [id number] [address] [place] [address], [place] [address] Sep, [facility] [address] [id number] [address] [place] [address] Sep, [facility] [address] [facility] [id number] [address] [address] Sep, IMMUNIZATIONS No Known Immunizations SOCIAL HISTORY [...] bowel obstruction, Dehydration -[facility] 01/01/17 Hospitalization History [facility]- UTI/Sepsis 01/18/2018 Hospitalization History [facility] - infection 4 days 05/2018
[2020-01-14 23:24] LABS: TOTAL PROTEIN 7.7 GM/DL (6.4-8.2)
--- OUTSIDE RECORDS SUMMARY | 2020-01-14 23:24 | XMS REPORT ---
Author Author Melvin BENTLEY Organization [facility] Address [address] [place] [address] Care Team Providers Care Travel Nurse Name Role Phone LINDA BENTLEY Unavailable PROBLEMS Type Condition ICD9-CM Code PIY86-MH Code Onset Dates Condition S tatus SNOMED Code Problem Incontinence of feces, unspecified fecal incontinence type R15.9 Active 52038376 Problem Primary insomnia F51.01 Active 193 296606 Problem Hydronephrosis with ureteral stricture, not else where classified N13.1 Active 13965120 Problem Chronic fatigue, unspecified R53.82 A ctive 041977750 Problem Hypertension, benign I10 Active 96257189 Problem Mood disorder F39 Active 117798 05 Problem Neuropathy G62.9 Active 201457400 Problem Chronic pain syndrome G89.4 Active 177991409 Problem Abdominal pain, left lower quadrant R10.32 Active 074651176 Problem 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 Active 185041482 Problem 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 547258297 Problem Anxiety F41.9 Active 89142566 Problem Polyneuropathy G62.9 Active 18055 000 Problem Malignant neoplasm of colon, unspecified part of colon C18.9 Active 682517135 Problem Attention to urostomy Z43.6 Active 645193555 ALLERGIES No Information ENCOUNTERS Encounter Location Date Diagnosis [facility] [address] [facility] [id number] [address] [place] [id number] 16 Oct, 2019 Attention to urostomy Z43.6 and Hypertension, benign I10 [facility] [address] [facility] [id number] [address] [place] [id number] 15 Oct, 2019 [facility] [address] [facility] [id number] [address] [place] [id number] 14 Oct, 2019 Neuropathy G62.9 ; Anxiety F 41.9 and Encounter for Medicare annual wellness exam Z00.00 [facility] [address] [id number] [address] [place] [phone] 10 Sep, 2019 Neuropathy G62.9 ; Anxiety F 41.9 and Encounter for Medicare annual wellness exam Z00.00 [facility] [address] [id number] [address] [place] [id number] 12 Aug, 2019 Anxiety F41.9 ; Neuropathy G 62.9 and Encounter for Medicare annual wellness exam Z00.00 [facility] [address] [id number] [address] [place] [id number] 31 Jul, 2019 [facility] [address] [id number] [address] [place] [phone] Jul, Primary insomnia F51.01 and Anxiety F41.9 [facility] [address] [id number] [address] [place] [id number] 14 Jul, 2019 Primary insomnia F51.01 ; Ne uropathy G62.9 and Encounter for Medicare annual wellness exam Z00.00 [facility] [address] [id number] [address] [place] [phone] Jun, Neuropathy G62.9 and Encount er for Medicare annual wellness exam Z00.00 [facility] [address] [id number] [address] [place] [id number] 18 Jun, 2019 Primary insomnia F51.01 [facility] [address] [id number] [address] [place] [phone] 17 Jun, 2019 Primary insomnia F51.01 ; En counter for Medicare annual wellness exam Z00.00 and Neuropathy G62.9 [facility] [address] [id number] [address] [place] [phone] Jun, Malignant neoplasm of colon, unspecified part of colon C18.9 and Chronic fatigue, unspecified R53.82 [facility] [address] [id number] [address] [place] [phone] May, Neuropathy G62.9 and Encount er for Medicare annual wellness exam Z00.00 [facility] [address] [id number] [address] [place] [id number] 15 May, 2019 Primary insomnia F51.01 [facility] [address] [id number] [address] [place] [phone] May, Neuropathy G62.9 and Anxiety F41.9 [facility] [address] [id number] [address] [place] [id number] 30 Apr, 2019 Encounter for Medicare annua l wellness exam Z00.00 [facility] [address] [id number] [address] [place] [id number] 16 Apr, 2019 Neuropathy G62.9 and Encount er for Medicare annual wellness exam Z00.00 [facility] [address] [id number] [address] [place] [id number] 26 Mar, 2019 Neuropathy G62.9 and Primary insomnia F51.01 [facility] [address] [id number] [address] [place] [phone] Mar, [facility] [address] [id number] [address] [place] [id number] Feb, Primary insomnia F51.01 ; Ne uropathy G62.9 and Encounter for Medicare annual wellness exam Z00.00 [facility] [address] [id number] [address] [place] [phone] Feb, Neuropathy G62.9 and Encount er for Medicare annual wellness exam Z00.00 [facility] [address] [id number] [address] [place] [phone] Feb, Primary insomnia F51.01 and High risk medication use Z79.899 [facility] [address] [id number] [address] [place] [phone] Jan, [facility] [address] [id number] [address] [place] [phone] Jan, Neuropathy G62.9 [facility] [address] [id number] [address] [place] [phone] Dec, [facility] [address] [id number] [address] [place] [phone] Dec, Encounter for Medicare annua l wellness exam Z00.00 and Neuropathy G62.9 [facility] [address] [id number] [address] [place] [phone] November, [facility] [address] [id number] [address] [place] [phone] November, Encounter for Medicare annua l wellness exam Z00.00 ; 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 ; Mood disorder F39 ; Chronic fatigue, unspecified R53.82 and Neuropathy G62.9 [facility] [address] [id number] [address] [place] [phone] November, Neuropathy G62.9 [facility] [address] [id number] [address] [place] [phone] Oct, Neuropathy G62.9 [facility] [address] [id number] [address] [place] [phone] Oct, Hypertension, benign I10 and Anxiety F41.9 [facility] [address] [id number] [address] [place] [phone] Oct, [facility] [address] [id number] [address] [place] [phone] Oct, [facility] [address] [id number] [address] [place] [phone] Oct, [facility] [address] [id number] [address] [place] [phone] Oct, Neuropathy G62.9 [facility] [address] [id number] [address] [place] [phone] Sep, [facility] [address] [id number] [address] [place] [phone] Sep, Neuropathy G62.9 [facility] [address] [id number] [address] [place] [phone] Sep, [facility] [address] [facility] [id number] [address] [place] [id number] Sep, H/O malignant carcinoid tumo r of rectum Z85.040 and Primary insomnia F51.01 [facility] [address] [id number] [address] [place] [phone] Aug, [facility] [address] [id number] [address] [place] [phone] Aug, Neuropathy G62.9 [facility] [address] [id number] [address] [place] [phone] Aug, [facility] [address] [facility] [id number] [address] [place] [phone] Jul, Non-recurrent acute suppurat francine otitis media of left ear without spontaneous rupture of tympanic membrane H66.002 [facility] [address] [facility] [id number] [address] [place] [phone] Jul, Neuropathy G62.9 [facility] [address] [facility] [id number] [address] [place] [id number] Jun, [facility] [address] [facility] [id number] [address] [place] [phone] Jun, [facility] [address] [facility] [id number] [address] [place] [phone] Jun, Neuropathy G62.9 [facility] [address] [facility] [id number] [address] [place] [phone] Jun, [facility] [address] [facility] [id number] [address] [place] [phone] Jun, [facility] [address] [facility] [id number] [address] [place] [phone] Jun, Lumbar neuritis M54.16 [facility] [address] [facility] [id number] [address] [place] [phone] May, Neuropathy G62.9 [facility] [address] [place] [id number] [address] [place] [phone] May, [facility] [address] [place] [place] [id number] [address] [place] [id number] 05 May, 2018 Neuropathy G62.9 and Hyperte nsion, benign I10 [facility] [address] [place] [id number] [place] [phone] Apr, Polyneuropathy G62.9 and Hyp ertension, benign I10 [facility] [address] [place] [id number] [place] [phone] 17 Mar, 2018 Chronic pain syndrome G89.4 and Hypertension, benign I10 [place] [address] [place] [address] [id number] [place] [phone] Mar, Polyneuropathy G62.9 and Hyp ertension, benign I10 [facility] [address] [place] [id number] [address] [place] [phone] Feb, [facility] [address] [phone] Feb, Hypertension, benign I10 [facility] [address] [place] [id number] [place] [phone] Feb, Hypertension, benign I10 ; P olyneuropathy G62.9 and Primary insomnia F51.01 [facility] [address] [place] [place] [id number] [address] [place] [phone] Jan, Hypertension, benign I10 and Polyneuropathy G62.9 [facility] [address] [place] [place] [id number] [address] [place] [phone] Jan, Hypertension, benign I10 and Neuropathy G62.9 [facility] [address] [place] [id number] [address] [place] [phone] Jan, [facility] [address] [place] [id number] [address] [place] [phone] Dec, Polyneuropathy G62.9 [facility] [address] [id number] [address] [place] [phone] Dec, Mood disorder F39 [facility] [address] [id number] [address] [place] [phone] November, Polyneuropathy G62.9 [facility] [address] [facility] [id number] [address] [place] [phone] November, Medicare annual wellness vis it, initial Z00.00 [facility] [address] [id number] [address] [place] [phone] November, Mood disorder F39 [facility] [address] [id number] [address] [place] [phone] Oct, Polyneuropathy G62.9 [facility] [address] [facility] [id number] [address] [place] [phone] Oct, [facility] [address] [facility] [id number] [address] [place] [phone] Oct, [facility] [address] [facility] [id number] [address] [place] [phone] Oct, Mood disorder F39 ; Attentio n to urostomy Z43.6 ; Chronic pain syndrome G89.4 and Polyneuropathy G62.9 [facility] [address] [facility] [id number] [address] [place] [phone] Sep, Polyneuropathy G62.9 [facility] [address] [id number] [address] [place] [phone] Sep, [facility] [address] [id number] [address] [place] [phone] Sep, Polyneuropathy G62.9 [facility] [address] [facility] [id number] [address] [place] [phone] Aug, Polyneuropathy G62.9 [facility] [address] [facility] [id number] [address] [place] [phone] Aug, Malignant neoplasm of colon, unspecified part of colon C18.9 and Polyneuropathy G62.9 [facility] [address] [facility] [id number] [address] [place] [phone] Aug, Neuropathy G62.9 and Polyneu ropathy G62.9 [facility] [address] [facility] [id number] [address] [place] [phone] Jul, Encounter for drug screening Z02.83 [facility] [address] [id number] [address] [place] [id number] Jul, Polyneuropathy G62.9 [facility] [address] [facility] [id number] [address] [place] [id number] Jul, [facility] [address] [facility] [id number] [address] [place] [phone] Jul, Neuropathy G62.9 and Anxiety F41.9 [facility] [address] [facility] [id number] [address] [place] [phone] Jul, [facility] [address] [facility] [id number] [address] [place] [phone] Jul, [facility] [address] [facility] [id number] [address] [place] [phone] Jul, [facility] [address] [facility] [id number] [address] [place] [id number] Jul, Polyneuropathy G62.9 [facility] [address] [id number] [address] [place] [phone] Jul, [facility] [address] [facility] [id number] [address] [place] [phone] Jun, [facility] [address] [facility] [id number] [address] [place] [phone] Jun, [facility] [address] [facility] [id number] [address] [place] [phone] Jun, [facility] [address] [id number] [address] [address] 07 Jun, 2017 Encounter for dental examina tion Z01.20 [facility] [address] [place] [id number] [address] [place] [phone] Jun, Polyneuropathy G62.9 and Anx iety F41.9 [facility] [address] [place] [id number] [address] [place] [phone] Jun, [facility] [address] [id number] [address], [place] [address] May, Dental examination Z01.20 [facility] [address] [place] [id number] [address] [place] [phone] May, Polyneuropathy G62.9 [place] [address] [place] [id number] [address] [place] [phone] Apr, Polyneuropathy G62.9 [facility] [address] [place] [id number] [address] [place] [id number] Apr, Polyneuropathy G62.9 [facility] [address] [place] [id number] [place] [address] Apr, Hypertension, benign I10 ; P olyneuropathy G62.9 and Anxiety F41.9 [place] [address] [place] [id number] [address] [place] [phone] Apr, Primary insomnia F51.01 and Polyneuropathy G62.9 [facility] [address] [place] [id number] [address] [place] [id number] Apr, Primary insomnia F51.01 and Polyneuropathy G62.9 [facility] [address] [place] [id number] [address] [place] [phone] Mar, Primary insomnia F51.01 [facility] [address] [place] [id number] [address] [place] [phone] Mar, [place] [address] [id number] [address] [place] [address], [place] [address] Mar, Polyneuropathy G62.9 [facility] [address] [id number] [address] [place] [address], [place] [address] Feb, Primary insomnia F51.01 [facility] [address] [id number] [address] [place] [address], [place] [address] Feb, [facility] [address] [id number] [address] [place] [address], [place] [address] Feb, [facility] [address] [id number] [address] [place] [address], [place] [address] Feb, Polyneuropathy G62.9 [facility] [address] [id number] [address] [place] [address], [place] [address] Feb, Primary insomnia F51.01 [facility] [address] [id number] [address] [place] [address], [place] [address] Jan, [facility] [address] [id number] [address] [place] [address], [place] [address] Jan, [facility] [address] [id number] [address] [place] [address], [place] [address] Dec, [facility] [address] [id number] [address] [place] [id number] Dec, Primary insomnia F51.01 [facility] [address] [id number] [address] [place] [address], [place] [address] Dec, Primary insomnia F51.01 [facility] [address] [id number] [address] [place] [address], [place] [address] Dec, [facility] [address] [id number] [address] [place] [phone] Dec, [facility] [address] [id number] [address] [place] [phone] Dec, [facility] [address] [id number] [address] [place] [id number] Dec, [facility] [address] [facility] [id number] [address] [place] [id number] November, Primary insomnia F51.01 and Polyneuropathy G62.9 [facility] [address] [id number] [address] [place] [phone] November, [facility] [address] [facility] [id number] [address] [place] [phone] November, Abdominal pain, left lower q uadrant R10.32 [facility] [address] [facility] [id number] [address] [place] [phone] November, [facility] [address] [facility] [id number] [address] [place] [phone] Oct, [facility] [address] [facility] [id number] [address] [place] [phone] Oct, Abdominal pain, left lower q uadrant R10.32 ; H/O malignant carcinoid tumor of rectum Z85.040 and Neuropathy G62.9 [facility] [address] [facility] [id number] [address] [place] [phone] Oct, [facility] [address] [facility] [id number] [address] [place] [phone] Sep, [facility] [id number] [place] [id number] Sep, [facility] [address] [facility] [id number] [address] [place] [phone] Sep, [facility] [address] [facility] [id number] [address] [place] [phone] Aug, [facility] [address] [facility] [id number] [address] [place] [phone] Aug, [facility] [address] [facility] [id number] [address] [place] [phone] Aug, Abdominal pain, left lower q uadrant R10.32 ; Neuropathy G62.9 and Anxiety F41.9 [facility] [address] [id number] [place] [phone] Jul, [facility] [address] [id number] [address] [place] [phone] Jul, [facility] [address] [id number] [address] [place] [phone] Jul, [facility] [address] [id number] [address] [place] [id number] Jul, [facility] [address] [id number] [address] [place] [phone] Jul, [facility] [address] [id number] [address] [place] [phone] Jun, [facility] [address] [id number] [address] [place] [phone] May, [facility] [address] [id number] [address] [place] [phone] May, [facility] [address] [id number] [address] [place] [phone] Apr, [facility] [address] [facility] [id number] [address] [place] [phone] Apr, Muscle spasms of both lower extremities M62.838 and Cellulitis, unspecified cellulitis site L03.90 [facility] [address] [id number] [address] [place] [phone] Apr, [facility] [address] [id number] [address] [place] [phone] 23 Mar, 2016 Generalized abdominal pain R 10.84 [facility] [address] [id number] [address] [place] [phone] 20 Mar, 2016 [facility] [address] [facility] [id number] [address] [place] [phone] 14 Mar, 2016 [facility] [address] [id number] [address] [place] [phone] 14 Mar, 2015 [facility] [address] [id number] [address] [place] [phone] 13 Mar, 2016 [facility] [address] [id number] [address] [place] [phone] 12 Mar, 2016 [facility] [address] [id number] [address] [place] [phone] 09 Mar, 2016 [facility] [address] [id number] [address] [place] [phone] 06 Mar, 2016 [facility] [address] [id number] [address] [place] [phone] Feb, Other specified diseases of anus and rectum K62.89 [facility] [address] [id number] [address] [place] [phone] Feb, [facility] [address] [id number] [address] [place] [phone] Feb, Dizziness R42 [facility] [address] [id number] [address] [place] [phone] Feb, [facility] [address] [id number] [address] [place] [phone] Jan, Polyneuropathy G62.9 [facility] [address] [id number] [address] [place] [phone] Jan, Other specified diseases of anus and rectum K62.89 [facility] [address] [id number] [address] [place] [phone] Jan, [facility] [address] [id number] [address] [place] [phone] 16 Jan, 2016 [facility] [address] [id number] [address] [place] [phone] 15 Jan, 2016 [facility] [address] [id number] [address] [place] [phone] Jan, Dizziness R42 [facility] [address] [id number] [address] [place] [place] [address], [place] [address] Dec, [facility] [address] [id number] [address] [place] [address], [place] [address] Dec, [facility] [address] [id number] [address] [place] [address], [place] [address] Dec, [facility] [address] [id number] [address] [place] [address], [place] [address] Dec, Dizziness R42 [facility] [address] [id number] [address] [place] [address], [place] [address] November, [facility] [address] [id number] [address] [place] [address], [place] [address] Oct, [facility] [address] [id number] [address] [place] [address], [place] [address] Oct, [facility] [address] [id number] [address] [place] [address], [place] [address] Oct, [facility] [address] [id number] [address] [place] [address], [place] [address] Oct, [facility] [address] [id number] [address] [place] [address], [place] [address] Sep, [facility] [address] [id number] [address] [place] [address], [place] [address] Sep, Primary insomnia F51.01 [facility] [address] [id number] [address] [place] [address], [place] [address] Sep, Primary insomnia F51.01 [facility] [address] [id number] [address] [place] [address], [place] [address] Sep, [facility] [address] [id number] [address] [place] [address], [place] [address] Aug, [facility] [address] [id number] [address] [address] Aug, [facility] [address] [id number] [address] [place] [address] Aug, Primary insomnia F51.01 ; Mo od disorder F39 ; Nausea and vomiting, unspecified intactability, vomiting of unspecified type R11.2 and Diarrhea R19.7 [facility] [address] [id number] [address] [place] [address] Aug, [facility] [address] [id number] [address] [place] [address] Aug, Folliculitis L73.9 [facility] [address] [address] Aug, [facility] [id number] [place] [address] Aug, [facility] [id number] [place] [address] Jul, Folliculitis L73.9 [facility] [address] [id number] [address] [place] [address] Jul, [facility] [address] [address] Jun, Folliculitis L73.9 [facility] [address] [id number] [address] [place] [id number] Jun, [facility] [address] [id number] [address] [place] [address] May, Polyneuropathy G62.9 [facility] [address] [id number] [address] [place] [address] May, Other specified diseases of anus and rectum K62.89 [facility] [address] [id number] [address] [place] [address] May, [facility] [id number] [place] [address] May, Primary insomnia F51.01 [facility] [address] [id number] [address] [place] [id number] May, [facility] [address] [id number] [address] [place] [id number] May, [facility] [address] [id number] [address] [place] [address] Apr, Other specified diseases of anus and rectum K62.89 ; Chronic fatigue R53.82 ; Urinary tract infection, site not specified N39.0 and Enterococcus as the cause of diseases classified elsewhere B95.2 [facility] [address] [id number] [address] [place] [id number] 16 Apr, 2015 [facility] [address] [id number] [address] [place] [id number] 15 Apr, 2015 [facility] [address] [id number] [address] [place] [address] Apr, Unspecified inflammatory and toxic neuropathy 357.9 [facility] [address] [id number] [address] [place] [id number] 05 Apr, 2015 [facility] [address] [id number] [address] [place] [id number] 26 Mar, 2015 [facility] [address] [id number] [address] [place] [id number] 23 Mar, 2015 [facility] [address] [id number] [address] [place] [id number] 17 Mar, 2015 [facility] [address] [id number] [address] [place] [id number] 14 Mar, 2015 Unspecified inflammatory and toxic neuropathy 357.9 [facility] [address] [id number] [address] [place] [phone] 12 Mar, 2015 [facility] [address] [id number] [address] [place] [id number] 11 Mar, 2015 [facility] [address] [id number] [address] [place] [phone] Mar, [facility] [address] [id number] [address] [place] [phone] Mar, [facility] [address] [id number] [address] [place] [phone] Feb, [facility] [address] [id number] [address] [place] [phone] Feb, [facility] [address] [id number] [address] [place] [phone] Feb, [facility] [address] [id number] [address] [place] [phone] Jan, [facility] [address] [id number] [address] [place] [phone] Jan, Nausea 787.02 and Neuropathy 355.9 [facility] [address] [id number] [address] [place] [phone] Jan, [facility] [address] [id number] [address] [place] [phone] Jan, [facility] [address] [id number] [address] [place] [id number] Jan, [facility] [address] [id number] [address] [place] [id number] Jan, Dental examination V72.2 [facility] [address] [id number] [address] [place] [phone] Jan, [facility] [address] [id number] [address] [place] [phone] Dec, [facility] [address] [id number] [address] [place] [phone] Dec, [facility] [address] [id number] [address] [place] [phone] Dec, Neuropathy 355.9 [facility] [address] [id number] [address] [place] [address], [place] [address] November, [facility] [address] [id number] [address] [place] [address], [place] [address] November, [facility] [address] [id number] [address] [place] [address], [place] [address] November, [facility] [address] [id number] [address] [place] [address], [place] [address] Oct, [facility] [address] [id number] [address] [place] [address], [place] [address] Oct, [facility] [address] [id number] [address] [place] [address], [place] [address] Sep, [facility] [address] [id number] [address] [place] [address], [place] [address] Sep, [facility] [address] [id number] [address] [place] [address], [place] [address] Sep, [facility] [address] [id number] [address] [place] [address], [place] [address] Sep, [facility] [address] [id number] [address] [place] [address], [place] [address] Sep, [facility] [address] [id number] [address] [place] [address], [place] [address] Sep, [facility] [address] [id number] [address] [place] [address], [place] [address] Sep, [facility] [address] [id number] [address] [place] [address], [place] [address] Sep, [facility] [address] [id number] [address] [place] [address], [place] [address] Aug, [facility] [address] [id number] [address] [place] [address], [place] [address] Aug, [facility] [address] [id number] [address] [place] [address], [place] [address] Aug, 2014 [facility] [address] [id number] [address] [place] [address], [place] [address] Aug, 2014 [facility] [address] [id number] [address] [place] [address], [place] [address] Aug, 2014 [facility] [address] [id number] [address] [place] [address], [place] [address] Aug, 2014 [facility] [address] [id number] [address] [place] [address], [place] [address] Aug, 2014 [facility] [address] [id number] [address] [place] [address], [place] [address] Aug, [facility] [address] [id number] [address] [place] [address], [place] [address] Jul, [facility] [address] [id number] [address] [place] [address], [place] [address] Jul, [facility] [address] [id number] [address] [place] [address], [place] [address] Jun, [facility] [address] [id number] [address] [place] [address], [place] [address] Jun, [facility] [address] [id number] [address] [place] [address], [place] [address] Jun, [facility] [address] [id number] [address] [place] [address], [place] [address] Jun, [facility] [address] [id number] [address] [place] [address], [place] [address] Jun, [facility] [address] [id number] [address] [place] [address], [place] [address] Jun, [facility] [address] [id number] [address] [place] [address], [place] [address] Jun, [facility] [address] [id number] [address] [place] [address], [place] [address] Jun, [facility] [address] [id number] [address] [place] [address], [place] [address] Jun, [facility] [address] [id number] [address] [place] [address], [place] [address] Jun, [facility] [address] [id number] [address] [place] [address], [place] [address] Jun, [facility] [address] [id number] [address] [place] [address], [place] [address] May, [facility] [address] [id number] [address] [place] [address], [place] [address] May, [facility] [address] [id number] [address] [place] [address], [place] [address] May, [facility] [address] [id number] [address] [place] [address], [place] [address] May, [facility] [address] [id number] [address] [place] [address], [place] [address] May, [facility] [address] [id number] [address] [place] [address], [place] [address] May, [facility] [address] [id number] [address] [place] [address], [place] [address] May, [facility] [address] [id number] [address] [place] [address], [place] [address] May, [facility] [address] [id number] [address] [place] [address], [place] [address] May, [facility] [address] [id number] [address] [place] [address], [place] [address] Apr, [facility] [address] [id number] [address] [place] [address], [place] [address] Apr, [facility] [address] [id number] [address] [place] [address], [place] [address] Apr, [facility] [address] [id number] [address] [place] [address], [place] [address] Apr, [facility] [address] [id number] [facility] [place] [address] Apr, [facility] [address] [id number] [address] [place] [address], [place] [address] Mar, [facility] [address] [id number] [address] [place] [address], [place] [address] Mar, [facility] [address] [id number] [address] [place] [address], [place] [address] Feb, [facility] [address] [id number] [address] [place] [address], [place] [address] Feb, [facility] [address] [id number] [address] [place] [address], [place] [address] Feb, [facility] [address] [id number] [address] [place] [address], [place] [address] Feb, [facility] [address] [id number] [address] [place] [address], [place] [address] Feb, [facility] [address] [id number] [address] [place] [address], [place] [address] Feb, [facility] [address] [id number] [address] [place] [address], [place] [address] Jan, [facility] [address] [id number] [address] [place] [address], [place] [address] Jan, [facility] [address] [id number] [address] [place] [address], [place] [address] Jan, [facility] [address] [id number] [address] [place] [address], [place] [address] Jan, [facility] [address] [id number] [address] [place] [address], [place] [address] Jan, [facility] [address] [id number] [address] [place] [address], [place] [address] Jan, [facility] [address] [id number] [address] [place] [address], [place] [address] Jan, [facility] [address] [id number] [facility] [place] [address] Jan, [facility] [address] [id number] [facility] [place] [address] Jan, [facility] [address] [id number] [facility] [place] [address] Jan, [facility] [address] [id number] [address] [place] [address], [place] [address] Jan, [facility] [address] [id number] [address] [place] [address], [place] [address] Dec, [facility] [address] [id number] [address] [place] [address], [place] [address] Dec, [facility] [address] [id number] [address] [place] [address], [place] [address] Dec, [facility] [address] [id number] [address] [place] [address], [place] [address] Dec, [facility] [address] [id number] [address] [place] [address], [place] [address] Dec, [facility] [address] [id number] [address] [place] [address], [place] [address] Dec, [facility] [address] [id number] [address] [place] [address], [place] [address] November, [facility] [address] [id number] [address] [place] [address], [place] [address] November, [facility] [address] [id number] [address] [place] [address], [place] [address] November, [facility] [address] [id number] [address] [place] [address], [place] [address] November, [facility] [address] [id number] [address] [place] [address], [place] [address] November, [facility] [address] [id number] [facility] [place] [address] November, [facility] [address] [id number] [facility] [place] [address] Oct, [facility] [address] [id number] [facility] [place] [address] Oct, [facility] [address] [id number] [address] [place] [address], [place] [address] Oct, [facility] [address] [id number] [address] [place] [address], [place] [address] Oct, [facility] [address] [id number] [address] [place] [address], [place] [address] Sep, [facility] [address] [id number] [address] [place] [address], [place] [address] Sep, [facility] [address] [id number] [address] [place] [address], [place] [address] Sep, [facility] [address] [id number] [address] [place] [address], [place] [address] Sep, [facility] [address] [id number] [address] [place] [address], [place] [address] Sep, [facility] [address] [id number] [address] [place] [address], [place] [address] Aug, [facility] [address] [id number] [address] [place] [address], [place] [address] Aug, [facility] [address] [id number] [address] [place] [address], [place] [address] Aug, [facility] [address] [id number] [address] [place] [address], [place] [address] 17 Aug, 2013 [facility] [address] [id number] [address] [place] [address], [place] [address] 14 Aug, 2013 [facility] [address] [place] [id number] May, [facility] [address] [id number] [address] [place] [address], [place] [address] May, [facility] [address] [id number] [address] [place] [address] May, [facility] [address] [id number] [address] [place] [address], [place] [address] May, [facility] [address] [id number] [address] [place] [address] May, [facility] [address] [id number] [address] [place] [address], [place] [address] Apr, [facility] [address] [id number] [address] [place] [phone] Apr, [facility] [address] [id number] [address] [place] [address], [place] [address] Apr, [facility] [address] [id number] [address] [place] [phone] Apr, [facility] [address] [id number] [address] [place] [address] Apr, [facility] [address] [id number] [address] [place] [address] Apr, [facility] [address] [id number] [address] [place] [address] Apr, [facility] [address] [id number] [address] [place] [id number] 28 Mar, 2013 [facility] [address] [id number] [address] [place] [phone] 25 Mar, 2013 [facility] [address] [id number] [address] [place] [phone] 24 Mar, 2013 [facility] [address] [id number] [address] [place] [phone] 16 Mar, 2013 [facility] [address] [id number] [address] [place] [address], [place] [address] Mar, [facility] [address] [id number] [address] [place] [address], [place] [address] Mar, [facility] [address] [id number] [address] [place] [address], [place] [address] Feb, [facility] [address] [id number] [address] [place] [address], [place] [address] Feb, [facility] [address] [id number] [address] [place] [address], [place] [address] Feb, [facility] [address] [id number] [address] [place] [address], [place] [address] Feb, [facility] [address] [id number] [address] [place] [address], [place] [address] Feb, [facility] [address] [id number] [address] [place] [address], [place] [address] Feb, [facility] [address] [id number] [address] [place] [address], [place] [address] Jan, [facility] [address] [id number] [address] [place] [address], [place] [address] Dec, [facility] [address] [id number] [address] [place] [address], [place] [address] Dec, [facility] [address] [id number] [address] [place] [address], [place] [address] Dec, [facility] [address] [id number] [address] [place] [address], [place] [address] Dec, [facility] [address] [id number] [address] [place] [address], [place] [address] Dec, [facility] [address] [id number] [address] [place] [address], [place] [address] 18 Dec, 2012 [facility] [address] [id number] [address] [place] [address], [place] [address] 17 Dec, 2012 [facility] [address] [id number] [address] [place] [address], [place] [address] Dec, [facility] [address] [id number] [address] [place] [address], [place] [address] Dec, [facility] [address] [id number] [address] [place] [address], [place] [address] November, [facility] [address] [id number] [address] [place] [address], [place] [address] November, [facility] [address] [id number] [address] [place] [address], [place] [address] Oct, [facility] [address] [id number] [address] [place] [address], [place] [address] Sep, [facility] [address] [id number] [address] [place] [address], [place] [address] Sep, [facility] [address] [id number] [address] [place] [address], [place] [address] Sep, [facility] [address] [id number] [address] [place] [address], [place] [address] Sep, [facility] [address] [id number] [address] [place] [address], [place] [address] Aug, [facility] [address] [id number] [address] [place] [address], [place] [address] Aug, [facility] [address] [id number] [address] [place] [address], [place] [address] Jul, [facility] [address] [id number] [address] [place] [address], [place] [address] Jul, [facility] [address] [id number] [address] [place] [address], [place] [address] Jul, [facility] [address] [id number] [address] [place] [address], [place] [address] Sep, [facility] [address] [id number] [address] [place] [phone] Sep, [facility] [address] [facility] [id number] [address] [address] Sep, IMMUNIZATIONS No Known Immunizations SOCIAL HISTORY Never Assessed REASON FOR VISIT PA Approved PLAN OF CARE VITAL SIGNS MEDICATIONS No [...] bowel obstruction, Dehydration -[facility] 01/01/17 Hospitalization History [facility], [place]- UTI/Sepsis 01/18/2018 Hospital[facility] days 05/2018
--- OUTSIDE RECORDS SUMMARY | 2020-01-14 23:24 | XMS REPORT ---
Author Author Melvin BENTLEY Organization [facility] Address [address] [place] [address] Care Team Providers [employer]ator Name Role Phone LINDA BENTLEY Unavailable PROBLEMS Type Condition ICD9-CM Code [id number] Code Onset Dates Condition S tatus SNOMED Code Problem Incontinence of feces, unspecified fecal incontinence type R15.9 Active 38389320 Problem Primary insomnia F51.01 Active 193 004829 Problem Hydronephrosis with ureteral stricture, not else where classified N13.1 Active 43066713 Problem Chronic fatigue, unspecified R53.82 A ctive 321331230 Problem Hypertension, benign I10 Active 88767395 Problem Mood disorder F39 Active 709394 05 Problem Neuropathy G62.9 Active 868694871 Problem Chronic pain syndrome G89.4 Active 033963868 Problem Abdominal pain, left lower quadrant R10.32 Active 708191427 Problem 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 Active 797795926 Problem 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 679490959 Problem Anxiety F41.9 Active 52112751 Problem Polyneuropathy G62.9 Active 96492 000 Problem Malignant neoplasm of colon, unspecified part of colon C18.9 Active 550355203 Problem Attention to urostomy Z43.6 Active 506001995 ALLERGIES No Information ENCOUNTERS Encounter Location Date Diagnosis [facility] [address] [facility] [id number] [address] [place] [id number] 16 Oct, 2019 Attention to urostomy Z43.6 and Hypertension, benign I10 [facility] [address] [facility] [id number] [address] [place] [id number] 15 Oct, 2019 [facility] [address] [facility] [id number] [address] [place] [address] 14 Oct, 2019 Neuropathy G62.9 ; Anxiety F 41.9 and Encounter for Medicare annual wellness exam Z00.00 [facility] [address] [id number] [address] [place] [address] 10 Sep, 2019 Neuropathy G62.9 ; Anxiety F 41.9 and Encounter for Medicare annual wellness exam Z00.00 [facility] [address] [id number] [address] [place] [id number] 12 Aug, 2019 Anxiety F41.9 ; Neuropathy G 62.9 and Encounter for Medicare annual wellness exam Z00.00 [facility] [address] [id number] [address] [place] [id number] 31 Jul, 2019 [facility] [address] [id number] [address] [place] [id number] Jul, Primary insomnia F51.01 and Anxiety F41.9 [facility] [address] [id number] [address] [place] [address] 14 Jul, 2019 Primary insomnia F51.01 ; Ne uropathy G62.9 and Encounter for Medicare annual wellness exam Z00.00 [facility] [address] [id number] [address] [place] [address] Jun, Neuropathy G62.9 and Encount er for Medicare annual wellness exam Z00.00 [facility] [address] [id number] [address] [place] [id number] 18 Jun, 2019 Primary insomnia F51.01 [facility] [address] [id number] [address] [place] [address] 17 Jun, 2019 Primary insomnia F51.01 ; En counter for Medicare annual wellness exam Z00.00 and Neuropathy G62.9 [facility] [address] [id number] [address] [place] [address] Jun, Malignant neoplasm of colon, unspecified part of colon C18.9 and Chronic fatigue, unspecified R53.82 [facility] [address] [id number] [address] [place] [address] May, Neuropathy G62.9 and Encount er for Medicare annual wellness exam Z00.00 [facility] [address] [id number] [address] [place] [id number] 15 May, 2019 Primary insomnia F51.01 [facility] [address] [id number] [address] [place] [address] May, Neuropathy G62.9 and Anxiety F41.9 [facility] [address] [id number] [address] [place] [id number] 30 Apr, 2019 Encounter for Medicare annua l wellness exam Z00.00 [facility] [address] [id number] [address] [place] [id number] 16 Apr, 2019 Neuropathy G62.9 and Encount er for Medicare annual wellness exam Z00.00 [facility] [address] [id number] [address] [place] [id number] 26 Mar, 2019 Neuropathy G62.9 and Primary insomnia F51.01 [facility] [address] [id number] [address] [place] [id number] Mar, [facility] [address] [id number] [address] [place] [address] Feb, Primary insomnia F51.01 ; Ne uropathy G62.9 and Encounter for Medicare annual wellness exam Z00.00 [facility] [address] [id number] [address] [place] [address] Feb, Neuropathy G62.9 and Encount er for Medicare annual wellness exam Z00.00 [facility] [address] [id number] [address] [place] [address] Feb, Primary insomnia F51.01 and High risk medication use Z79.899 [facility] [address] [id number] [address] [place] [id number] Jan, [facility] [address] [id number] [address] [place] [address] Jan, Neuropathy G62.9 [facility] [address] [id number] [address] [place] [id number] Dec, [facility] [address] [id number] [address] [place] [address] Dec, Encounter for Medicare annua l wellness exam Z00.00 and Neuropathy G62.9 [facility] [address] [id number] [address] [place] [id number] November, [facility] [address] [id number] [address] [place] [address] November, Encounter for Medicare annua l wellness exam Z00.00 ; 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 ; Mood disorder F39 ; Chronic fatigue, unspecified R53.82 and Neuropathy G62.9 [facility] [address] [id number] [address] [place] [address] November, Neuropathy G62.9 [facility] [address] [id number] [address] [place] [address] Oct, Neuropathy G62.9 [facility] [address] [id number] [address] [place] [address] Oct, Hypertension, benign I10 and Anxiety F41.9 [facility] [address] [id number] [address] [place] [address] Oct, [facility] [address] [id number] [address] [place] [address] Oct, [facility] [address] [id number] [address] [place] [address] Oct, [facility] [address] [id number] [address] [place] [address] Oct, Neuropathy G62.9 [facility] [address] [id number] [address] [place] [address] Sep, [facility] [address] [id number] [address] [place] [address] Sep, Neuropathy G62.9 [facility] [address] [id number] [address] [place] [address] Sep, [facility] [address] [facility] [id number] [address] [place] [address] Sep, H/O malignant carcinoid tumo r of rectum Z85.040 and Primary insomnia F51.01 [facility] [address] [id number] [address] [place] [address] Aug, [facility] [address] [id number] [address] [place] [address] Aug, Neuropathy G62.9 [facility] [address] [id number] [address] [place] [address] Aug, [facility] [address] [facility] [id number] [address] [place] [id number] Jul, Non-recurrent acute suppurat francine otitis media of left ear without spontaneous rupture of tympanic membrane H66.002 [facility] [address] [facility] [id number] [address] [place] [address] Jul, Neuropathy G62.9 [facility] [address] [facility] [id number] [address] [place] [address] Jun, [facility] [address] [facility] [id number] [address] [place] [phone] Jun, [facility] [address] [facility] [id number] [address] [place] [address] Jun, Neuropathy G62.9 [facility] [address] [facility] [id number] [address] [place] [phone] Jun, [facility] [address] [facility] [id number] [address] [place] [address] Jun, [facility] [address] [facility] [id number] [address] [place] [address] Jun, Lumbar neuritis M54.16 [facility] [address] [facility] [id number] [address] [place] [address] May, Neuropathy G62.9 [facility] [address] [place] [id number] [address] [place] [address] May, [facility] [address] [id number] [address] [place] [address] 05 May, 2018 Neuropathy G62.9 and Hyperte nsion, benign I10 [facility] [address] [place] [id number] [place] [address] Apr, Polyneuropathy G62.9 and Hyp ertension, benign I10 [facility] [address] [id number] [place] [address] 17 Mar, 2018 Chronic pain syndrome G89.4 and Hypertension, benign I10 [place] [address] [id number] [place] [address] Mar, Polyneuropathy G62.9 and Hyp ertension, benign I10 [facility] [address] [place] [id number] [address] [place] [address] Feb, [facility] [address] [address] Feb, Hypertension, benign I10 [facility] [address] [place] [id number] [place] [address] Feb, Hypertension, benign I10 ; P olyneuropathy G62.9 and Primary insomnia F51.01 [facility] [address] [id number] [address] [place] [address] Jan, Hypertension, benign I10 and Polyneuropathy G62.9 [facility] [address] [id number] [address] [place] [address] Jan, Hypertension, benign I10 and Neuropathy G62.9 [facility] [address] [place] [place] [id number] [address] [place] [address] Jan, [facility] [address] [place] [place] [id number] [address] [place] [address] Dec, Polyneuropathy G62.9 [facility] [address] [id number] [address] [place] [address] Dec, Mood disorder F39 [facility] [address] [id number] [address] [place] [address] November, Polyneuropathy G62.9 [facility] [address] [facility] [id number] [address] [place] [address] November, Medicare annual wellness vis it, initial Z00.00 [facility] [address] [id number] [address] [place] [address] November, Mood disorder F39 [facility] [address] [id number] [address] [place] [id number] Oct, Polyneuropathy G62.9 [facility] [address] [facility] [id number] [address] [place] [address] Oct, [facility] [address] [facility] [id number] [address] [place] [phone] Oct, [facility] [address] [facility] [id number] [address] [place] [address] Oct, Mood disorder F39 ; Attentio n to urostomy Z43.6 ; Chronic pain syndrome G89.4 and Polyneuropathy G62.9 [facility] [address] [facility] [id number] [address] [place] [address] Sep, Polyneuropathy G62.9 [facility] [address] [id number] [address] [place] [address] Sep, [facility] [address] [id number] [address] [place] [id number] Sep, Polyneuropathy G62.9 [facility] [address] [facility] [id number] [address] [place] [phone] Aug, Polyneuropathy G62.9 [facility] [address] [facility] [id number] [address] [place] [id number] Aug, Malignant neoplasm of colon, unspecified part of colon C18.9 and Polyneuropathy G62.9 [facility] [address] [facility] [id number] [address] [place] [address] Aug, Neuropathy G62.9 and Polyneu ropathy G62.9 [facility] [address] [facility] [id number] [address] [place] [address] Jul, Encounter for drug screening Z02.83 [facility] [address] [id number] [address] [place] [address] Jul, Polyneuropathy G62.9 [facility] [address] [facility] [id number] [address] [place] [address] Jul, [facility] [address] [facility] [id number] [address] [place] [address] Jul, Neuropathy G62.9 and Anxiety F41.9 [facility] [address] [facility] [id number] [address] [place] [address] Jul, [facility] [address] [facility] [id number] [address] [place] [address] Jul, [facility] [address] [facility] [id number] [address] [place] [address] Jul, [facility] [address] [facility] [id number] [address] [place] [address] Jul, Polyneuropathy G62.9 [facility] [address] [id number] [address] [place] [address] Jul, [facility] [address] [facility] [id number] [address] [place] [address] Jun, [facility] [address] [facility] [id number] [address] [place] [address] Jun, [facility] [address] [facility] [id number] [address] [place] [address] Jun, [facility] [address] [id number] [place] [address] 07 Jun, 2017 Encounter for dental examina tion Z01.20 [facility] [address] [place] [id number] [address] [place] [address] Jun, Polyneuropathy G62.9 and Anx iety F41.9 [facility] [address] [place] [id number] [address] [place] [address] Jun, [facility] [address] [id number] [place] [address] May, Dental examination Z01.20 [facility] [address] [place] [id number] [address] [place] [address] May, Polyneuropathy G62.9 [place] [id number] [place] [id number] [address] [place] [address] Apr, Polyneuropathy G62.9 [facility] [address] [id number] [address] [place] [address] Apr, Polyneuropathy G62.9 [facility] [address] [id number] [place] [address] Apr, Hypertension, benign I10 ; P olyneuropathy G62.9 and Anxiety F41.9 [place] [address] [place] [id number] [address] [place] [address] Apr, Primary insomnia F51.01 and Polyneuropathy G62.9 [facility] [address] [place] [place] [id number] [address] [place] [address] Apr, Primary insomnia F51.01 and Polyneuropathy G62.9 [facility] [address] [place] [place] [id number] [address] [place] [address] Mar, Primary insomnia F51.01 [facility] [address] [place] [id number] [address] [place] [address] Mar, [place] [address] [id number] [address] [place] [address], [place] [address] Mar, Polyneuropathy G62.9 [facility] [address] [id number] [address] [place] [address], [place] [address] Feb, Primary insomnia F51.01 [facility] [address] [id number] [address] [place] [address], [place] [address] Feb, [facility] [address] [id number] [address] [place] [address], [place] [address] Feb, [facility] [address] [id number] [address] [place] [address], [place] [address] Feb, Polyneuropathy G62.9 [facility] [address] [id number] [address] [place] [address], [place] [address] Feb, Primary insomnia F51.01 [facility] [address] [id number] [address] [place] [address], [place] [address] Jan, [facility] [address] [id number] [address] [place] [address], [place] [address] Jan, [facility] [address] [id number] [address] [place] [address], [place] [address] Dec, [facility] [address] [id number] [address] [place] [address] Dec, Primary insomnia F51.01 [facility] [address] [id number] [address] [place] [address], [place] [address] Dec, Primary insomnia F51.01 [facility] [address] [id number] [address] [place] [address], [place] [address] Dec, [facility] [address] [id number] [address] [place] [address] Dec, [facility] [address] [id number] [address] [place] [address] Dec, [facility] [address] [id number] [address] [place] [address] Dec, [facility] [address] [facility] [id number] [address] [place] [address] November, Primary insomnia F51.01 and Polyneuropathy G62.9 [facility] [address] [id number] [address] [place] [address] November, [facility] [address] [facility] [id number] [address] [place] [address] November, Abdominal pain, left lower q uadrant R10.32 [facility] [address] [facility] [id number] [address] [place] [address] November, [facility] [address] [facility] [id number] [address] [place] [address] Oct, [facility] [address] [facility] [id number] [address] [place] [address] Oct, Abdominal pain, left lower q uadrant R10.32 ; H/O malignant carcinoid tumor of 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 and Neuropathy G62.9 [facility] [address] [facility] [id number] [address] [place] [address] Oct, [facility] [address] [facility] [id number] [address] [place] [address] Sep, [facility] [id number] [place] [id number] Sep, [facility] [address] [facility] [id number] [address] [place] [address] Sep, [facility] [address] [facility] [id number] [address] [place] [address] Aug, [facility] [address] [facility] [id number] [address] [place] [address] Aug, [facility] [address] [facility] [id number] [address] [place] [address] Aug, Abdominal pain, left lower q uadrant R10.32 ; Neuropathy G62.9 and Anxiety F41.9 [facility] [id number] [place] [address] Jul, [facility] [address] [id number] [address] [place] [address] Jul, [facility] [address] [id number] [address] [place] [address] Jul, [facility] [address] [id number] [address] [place] [address] Jul, [facility] [address] [id number] [address] [place] [address] Jul, [facility] [address] [id number] [address] [place] [address] Jun, [facility] [address] [id number] [address] [place] [address] May, [facility] [address] [id number] [address] [place] [address] May, [facility] [address] [id number] [address] [place] [address] Apr, [facility] [address] [facility] [id number] [address] [place] [id number] Apr, Muscle spasms of both lower extremities M62.838 and Cellulitis, unspecified cellulitis site L03.90 [facility] [address] [id number] [address] [place] [id number] Apr, [facility] [address] [id number] [address] [place] [phone] 23 Mar, 2016 Generalized abdominal pain R 10.84 [facility] [address] [id number] [address] [place] [phone] 20 Mar, 2016 [facility] [address] [facility] [id number] [address] [place] [phone] 14 Mar, 2016 [facility] [address] [id number] [address] [place] [phone] 14 Mar, 2015 [facility] [address] [id number] [address] [place] [phone] 13 Mar, 2016 [facility] [address] [id number] [address] [place] [phone] 12 Mar, 2016 [facility] [address] [id number] [address] [place] [phone] 09 Mar, 2016 [facility] [address] [id number] [address] [place] [id number] 06 Mar, 2016 [facility] [address] [id number] [address] [place] [phone] Feb, Other specified diseases of anus and rectum K62.89 [facility] [address] [id number] [address] [place] [phone] Feb, [facility] [address] [id number] [address] [place] [phone] Feb, Dizziness R42 [facility] [address] [id number] [address] [place] [id number] Feb, [facility] [address] [id number] [address] [place] [phone] Jan, Polyneuropathy G62.9 [facility] [address] [id number] [address] [place] [phone] Jan, Other specified diseases of anus and rectum K62.89 [facility] [address] [id number] [address] [place] [phone] Jan, [facility] [address] [id number] [address] [place] [id number] 16 Jan, 2016 [facility] [address] [id number] [address] [place] [phone] 15 Jan, 2016 [facility] [address] [id number] [address] [place] [phone] Jan, Dizziness R42 [facility] [address] [id number] [address] [place] [address], [place] [phone] Dec, [facility] [address] [id number] [address] [place] [address], [place] [phone] Dec, [facility] [address] [id number] [address] [place] [address], [place] [id number] Dec, [facility] [address] [id number] [address] [place] [address], [place] [phone] Dec, Dizziness R42 [facility] [address] [id number] [address] [place] [address], [place] [id number] November, [facility] [address] [id number] [address] [place] [address], [place] [id number] Oct, [facility] [address] [id number] [address] [place], [place] [address], [place] [address] Oct, [facility] [address] [id number] [address] [place] [address], [place] [address] Oct, [facility] [address] [id number] [address] [place] [address], [place] [address] Oct, [facility] [address] [id number] [address] [place] [address], [place] [address] Sep, [facility] [address] [id number] [address] [place] [address], [place] [address] Sep, Primary insomnia F51.01 [facility] [address] [id number] [address] [place] [address], [place] [address] Sep, Primary insomnia F51.01 [facility] [address] [id number] [address] [place] [address], [place] [address] Sep, [facility] [address] [id number] [address] [place] [address], [place] [address] Aug, [facility] [address] [id number] [address] [address] Aug, [facility] [address] [id number] [address] [place] [address] Aug, Primary insomnia F51.01 ; Mo od disorder F39 ; Nausea and vomiting, unspecified intactability, vomiting of unspecified type R11.2 and Diarrhea R19.7 [facility] [address] [id number] [address] [place] [address] Aug, [facility] [address] [id number] [address] [place] [address] Aug, Folliculitis L73.9 [facility] [address] [address] Aug, [facility] [id number] [place] [address] Aug, [facility] [id number] [place] [address] Jul, Folliculitis L73.9 [facility] [address] [id number] [address] [place] [address] Jul, [facility] [address] [address] Jun, Folliculitis L73.9 [facility] [address] [id number] [address] [place] [address] Jun, [facility] [address] [id number] [address] [place] [address] May, Polyneuropathy G62.9 [facility] [address] [id number] [address] [place] [address] May, Other specified diseases of anus and rectum K62.89 [facility] [address] [id number] [address] [place] [address] May, [facility] [id number] [place] [address] May, Primary insomnia F51.01 [facility] [address] [id number] [address] [place] [address] May, [facility] [address] [id number] [address] [place] [address] May, [facility] [address] [id number] [address] [place] [address] Apr, Other specified diseases of anus and rectum K62.89 ; Chronic fatigue R53.82 ; Urinary tract infection, site not specified N39.0 and Enterococcus as the cause of diseases classified elsewhere B95.2 [facility] [address] [id number] [address] [place] [address] 16 Apr, 2015 [facility] [address] [id number] [address] [place] [address] 15 Apr, 2015 [facility] [address] [id number] [address] [place] [address] Apr, Unspecified inflammatory and toxic neuropathy 357.9 [facility] [address] [id number] [address] [place] [address] 05 Apr, 2015 [facility] [address] [id number] [address] [place] [id number] 26 Mar, 2015 [facility] [address] [id number] [address] [place] [phone] 23 Mar, 2015 [facility] [address] [id number] [address] [place] [id number] 17 Mar, 2015 [facility] [address] [id number] [address] [place] [address] 14 Mar, 2015 Unspecified inflammatory and toxic neuropathy 357.9 [facility] [address] [id number] [address] [place] [id number] 12 Mar, 2015 [facility] [address] [id number] [address] [place] [id number] 11 Mar, 2015 [facility] [address] [id number] [address] [place] [phone] Mar, [facility] [address] [id number] [address] [place] [address] Mar, [facility] [address] [id number] [address] [place] [address] Feb, [facility] [address] [id number] [address] [place] [address] Feb, [facility] [address] [id number] [address] [place] [address] Feb, [facility] [address] [id number] [address] [place] [address] Jan, [facility] [address] [id number] [address] [place] [address] Jan, Nausea 787.02 and Neuropathy 355.9 [facility] [address] [id number] [address] [place] [address] Jan, [facility] [address] [id number] [address] [place] [address] Jan, [facility] [address] [id number] [address] [place] [address] Jan, [facility] [address] [id number] [address] [place] [id number] Jan, Dental examination V72.2 [facility] [address] [id number] [address] [place] [address] Jan, [facility] [address] [id number] [address] [place] [address] Dec, [facility] [address] [id number] [address] [place] [address] Dec, [facility] [address] [id number] [address] [place] [address] Dec, Neuropathy 355.9 [facility] [address] [id number] [address] [place] [address], [place] [address] November, [facility] [address] [id number] [address] [place] [address], [place] [address] November, [facility] [address] [id number] [address] [place] [address], [place] [address] November, [facility] [address] [id number] [address] [place] [address], [place] [address] Oct, [facility] [address] [id number] [address] [place] [address], [place] [address] Oct, [facility] [address] [id number] [address] [place] [address], [place] [address] Sep, [facility] [address] [id number] [address] [place] [address], [place] [address] Sep, [facility] [address] [id number] [address] [place] [address], [place] [address] Sep, [facility] [address] [id number] [address] [place] [address], [place] [address] Sep, [facility] [address] [id number] [address] [place] [address], [place] [address] Sep, [facility] [address] [id number] [address] [place] [address], [place] [address] Sep, [facility] [address] [id number] [address] [place] [address], [place] [address] Sep, [facility] [address] [id number] [address] [place] [address], [place] [address] Sep, [facility] [address] [id number] [address] [place] [address], [place] [address] Aug, [facility] [address] [id number] [address] [place] [address], [place] [address] Aug, [facility] [address] [id number] [address] [place] [address], [place] [address] Aug, 2014 [facility] [address] [id number] [address] [place] [address], [place] [address] Aug, 2014 [facility] [address] [id number] [address] [place] [address], [place] [address] Aug, 2014 [facility] [address] [id number] [address] [place] [address], [place] [address] Aug, 2014 [facility] [address] [id number] [address] [place] [address], [place] [address] Aug, 2014 [facility] [address] [id number] [address] [place] [address], [place] [address] Aug, [facility] [address] [id number] [address] [place] [address], [place] [address] Jul, [facility] [address] [id number] [address] [place] [address], [place] [address] Jul, [facility] [address] [id number] [address] [place] [address], [place] [address] Jun, [facility] [address] [id number] [address] [place] [address], [place] [address] Jun, [facility] [address] [id number] [address] [place] [address], [place] [address] Jun, [facility] [address] [id number] [address] [place] [address], [place] [address] Jun, [facility] [address] [id number] [address] [place] [address], [place] [address] Jun, [facility] [address] [id number] [address] [place] [address], [place] [address] Jun, [facility] [address] [id number] [address] [place] [address], [place] [address] Jun, [facility] [address] [id number] [address] [place] [address], [place] [address] Jun, [facility] [address] [id number] [address] [place] [address], [place] [address] Jun, [facility] [address] [id number] [address] [place] [address], [place] [address] Jun, [facility] [address] [id number] [address] [place] [address], [place] [address] Jun, [facility] [address] [id number] [address] [place] [address], [place] [address] May, [facility] [address] [id number] [address] [place] [address], [place] [address] May, [facility] [address] [id number] [address] [place] [address], [place] [address] May, [facility] [address] [id number] [address] [place] [address], [place] [address] May, [facility] [address] [id number] [address] [place] [address], [place] [address] May, [facility] [address] [id number] [address] [place] [address], [place] [address] May, [facility] [address] [id number] [address] [place] [address], [place] [address] May, [facility] [address] [id number] [address] [place] [address], [place] [address] May, [facility] [address] [id number] [address] [place] [address], [place] [address] May, [facility] [address] [id number] [address] [place] [address], [place] [address] Apr, [facility] [address] [id number] [address] [place] [address], [place] [address] Apr, [facility] [address] [id number] [address] [place] [address], [place] [address] Apr, [facility] [address] [id number] [address] [place] [address], [place] [address] Apr, [facility] [address] [id number] [facility] [address] Apr, [facility] [address] [id number] [address] [place] [address], [place] [address] Mar, [facility] [address] [id number] [address] [place] [address], [place] [address] Mar, [facility] [address] [id number] [address] [place] [address], [place] [address] Feb, [facility] [address] [id number] [address] [place] [address], [place] [address] Feb, [facility] [address] [id number] [address] [place] [address], [place] [address] Feb, [facility] [address] [id number] [address] [place] [address], [place] [address] Feb, [facility] [address] [id number] [address] [place] [address], [place] [address] Feb, [facility] [address] [id number] [address] [place] [address], [place] [address] Feb, [facility] [address] [id number] [address] [place] [address], [place] [address] Jan, [facility] [address] [id number] [address] [place] [address], [place] [address] Jan, [facility] [address] [id number] [address] [place] [address], [place] [address] Jan, [facility] [address] [id number] [address] [place] [address], [place] [address] Jan, [facility] [address] [id number] [address] [place] [address], [place] [address] Jan, [facility] [address] [id number] [address] [place] [address], [place] [address] Jan, [facility] [address] [id number] [address] [place] [address], [place] [address] Jan, [facility] [address] [id number] [facility] [address] Jan, [facility] [address] [id number] [facility] [address] Jan, [facility] [address] [id number] [facility] [address] Jan, [facility] [address] [id number] [address] [place] [address], [place] [address] Jan, [facility] [address] [id number] [address] [place] [address], [place] [address] Dec, [facility] [address] [id number] [address] [place] [address], [place] [address] Dec, [facility] [address] [id number] [address] [place] [address], [place] [address] Dec, [facility] [address] [id number] [address] [place] [address], [place] [address] Dec, [facility] [address] [id number] [address] [place] [address], [place] [address] Dec, [facility] [address] [id number] [address] [place] [address], [place] [address] Dec, [facility] [address] [id number] [address] [place] [address], [place] [address] November, [facility] [address] [id number] [address] [place] [address], [place] [address] November, [facility] [address] [id number] [address] [place] [address], [place] [address] November, [facility] [address] [id number] [address] [place] [address], [place] [address] November, [facility] [address] [id number] [address] [place] [address], [place] [address] November, [facility] [address] [id number] [facility] [address] November, [facility] [address] [id number] [facility] [address] Oct, [facility] [address] [id number] [facility] [address] Oct, [facility] [address] [id number] [address] [place] [address], [place] [address] Oct, [facility] [address] [id number] [address] [place] [address], [place] [address] Oct, [facility] [address] [id number] [address] [place] [address], [place] [address] Sep, [facility] [address] [id number] [address] [place] [address], [place] [address] Sep, [facility] [address] [id number] [address] [place] [address], [place] [address] Sep, [facility] [address] [id number] [address] [place] [address], [place] [address] Sep, [facility] [address] [id number] [address] [place] [address], [place] [address] Sep, [facility] [address] [id number] [address] [place] [address], [place] [address] Aug, [facility] [address] [id number] [address] [place] [address], [place] [address] Aug, [facility] [address] [id number] [address] [place] [address], [place] [address] Aug, [facility] [address] [id number] [address] [place] [address], [place] [address] 17 Aug, 2013 [facility] [address] [id number] [address] [place] [address], [place] [address] 14 Aug, 2013 [facility] [address] [place] [id number] May, [facility] [address] [id number] [address] [place] [address], [place] [address] May, [facility] [address] [id number] [address] [place] [address] May, [facility] [address] [id number] [address] [place] [address], [place] [address] May, [facility] [address] [id number] [address] [place] [address] May, [facility] [address] [id number] [address] [place] [address], [place] [address] Apr, [facility] [address] [id number] [address] [place] [address] Apr, [facility] [address] [id number] [address] [place] [address], [place] [address] Apr, [facility] [address] [id number] [address] [place] [address] Apr, [facility] [address] [id number] [address] [place] [address] Apr, [facility] [address] [id number] [address] [place] [address] Apr, [facility] [address] [id number] [address] [place] [address] Apr, [facility] [address] [id number] [address] [place] [address] 28 Mar, 2013 [facility] [address] [id number] [address] [place] [address] 25 Mar, 2013 [facility] [address] [id number] [address] [place] [address] 24 Mar, 2013 [facility] [address] [id number] [address] [place] [address] 16 Mar, 2013 [facility] [address] [id number] [address] [place] [address], [place] [address] Mar, [facility] [address] [id number] [address] [place] [address], [place] [address] Mar, [facility] [address] [id number] [address] [place] [address], [place] [address] Feb, [facility] [address] [id number] [address] [place] [address], [place] [address] Feb, [facility] [address] [id number] [address] [place] [address], [place] [address] Feb, [facility] [address] [id number] [address] [place] [address], [place] [address] Feb, [facility] [address] [id number] [address] [place] [address], [place] [address] Feb, [facility] [address] [id number] [address] [place] [address], [place] [address] Feb, [facility] [address] [id number] [address] [place] [address], [place] [address] Jan, [facility] [address] [id number] [address] [place] [address], [place] [address] Dec, [facility] [address] [id number] [address] [place] [address], [place] [address] Dec, [facility] [address] [id number] [address] [place] [address], [place] [address] Dec, [facility] [address] [id number] [address] [place] [address], [place] [address] Dec, [facility] [address] [id number] [address] [place] [address], [place] [address] Dec, [facility] [address] [id number] [address] [place] [address], [place] [address] 18 Dec, 2012 [facility] [address] [id number] [address] [place] [address], [place] [address] 17 Dec, 2012 [facility] [address] [id number] [address] [place] [address], [place] [address] Dec, [facility] [address] [id number] [address] [place] [address], [place] [address] Dec, [facility] [address] [id number] [address] [place] [address], [place] [address] November, [facility] [address] [id number] [address] [place] [address], [place] [address] November, [facility] [address] [id number] [address] [place] [address], [place] [address] Oct, [facility] [address] [id number] [address] [place] [address], [place] [address] Sep, [facility] [address] [id number] [address] [place] [address], [place] [address] Sep, [facility] [address] [id number] [address] [place] [address], [place] [address] Sep, [facility] [address] [id number] [address] [place] [address], [place] [address] Sep, [facility] [address] [id number] [address] [place] [address], [place] [address] Aug, [facility] [address] [id number] [address] [place] [address], [place] [address] Aug, [facility] [address] [id number] [address] [place] [address], [place] [address] Jul, [facility] [address] [id number] [address] [place] [address], [place] [address] Jul, [facility] [address] [id number] [address] [place] [address], [place] [address] Jul, [facility] [address] [id number] [address] [place] [address], [place] [address] Sep, [facility] [address] [id number] [address] [place] [id number] Sep, [facility] [address] [facility] [id number] [address] [place] [address] Sep, IMMUNIZATIONS No Known Immunizations SOCIAL HISTORY Never Assessed REASON FOR VISIT PLAN OF CARE VITAL SIGNS Height 67 in 2014-05-21 Weight 171 lbs 2014-05-21 Temperature 98.4 degrees Fahrenheit 2014-05-21 Heart Rate 88 bpm 2014-05-21 Respiratory Rate 18 2014-05-21 Blood pressure systolic 120 mmHg 2014-05-21 Blood pressure diastolic 80 mmHg 2014-05-21 MEDICATIONS No Known Medications RESULTS No Results [...] [facility] 01/18/2018 Hospitalization History [facility] - infection 4 days 05/2018
[2020-01-14 23:25] LABS: BILIRUBIN,TOTAL 0.9 MG/DL (0.1-1.0); CARBON DIOXIDE 22 MMOL/L (21-32)
--- OUTSIDE RECORDS SUMMARY | 2020-01-14 23:25 | XMS REPORT ---
Author Author Melvin BENTLEY Organization [facility] Address [address] [place] [address] Care Team Providers [employer] Operations Manager Name Role Phone LINDA BENTLEY Unavailable PROBLEMS Type Condition ICD9-CM Code VOT96-ZA Code Onset Dates Condition S tatus SNOMED Code Problem Incontinence of feces, unspecified fecal incontinence type R15.9 Active 58369666 Problem Primary insomnia F51.01 Active 193 865794 Problem Hydronephrosis with ureteral stricture, not else where classified N13.1 Active 34030950 Problem Chronic fatigue, unspecified R53.82 A ctive 361637899 Problem Hypertension, benign I10 Active 79288779 Problem Mood disorder F39 Active 155935 05 Problem Neuropathy G62.9 Active 322732883 Problem Chronic pain syndrome G89.4 Active 271750584 Problem Abdominal pain, left lower quadrant R10.32 Active 690251072 Problem 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 Active 832009663 Problem 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 641466111 Problem Anxiety F41.9 Active 35592199 Problem Polyneuropathy G62.9 Active 09844 000 Problem Malignant neoplasm of colon, unspecified part of colon C18.9 Active 885073585 Problem Attention to urostomy Z43.6 Active 323853505 ALLERGIES No Information ENCOUNTERS Encounter Location Date Diagnosis [facility] [id number] [place] [address] Sep, [facility] [address] [place] [address] 10 Sep, 2019 Neuropathy G62.9 ; Anxiety F41.9 and Enc ounter for Medicare annual wellness exam Z00.00 [facility] [id number] [place] [address] 12 Aug, 2019 Anxiety F41.9 ; Neuropathy G62.9 and Enc ounter for Medicare annual wellness exam Z00.00 [facility] [id number] [place] [address] Jul, [facility] [id number] [place] [address] Jul, Primary insomnia F51.01 and Anxiety F41. 9 [facility] [id number] [place] [address] Jul, Primary insomnia F51.01 ; Neuropathy G62 .9 and Encounter for Medicare annual wellness exam Z00.00 [facility] [id number] [place] [address] Jun, Neuropathy G62.9 and Encounter for Medic are annual wellness exam Z00.00 [facility] [id number] [place] [address] 18 Jun, 2019 Primary insomnia F51.01 [facility] [id number] [place] [address] Jun, Primary insomnia F51.01 ; Encounter for Medicare annual wellness exam Z00.00 and Neuropathy G62.9 [facility] [id number] [place] [address] Jun, Malignant neoplasm of colon, unspecified part of colon C18.9 and Chronic fatigue, unspecified R53.82 [facility] [id number] [place] [address] May, Neuropathy G62.9 and Encounter for Medic are annual wellness exam Z00.00 [facility] [id number] [place] [address] 15 May, 2019 Primary insomnia F51.01 [facility] [id number] [place] [address] May, Neuropathy G62.9 and Anxiety F41.9 [facility] [id number] [place] [address] Apr, Encounter for Medicare annual wellness e xam Z00.00 [facility] [address] [address] Apr, Neuropathy G62.9 and Encounter for Medic are annual wellness exam Z00.00 [facility] [address] [address] 26 Mar, 2019 Neuropathy G62.9 and Primary insomnia F5 1.01 [facility] [address] [address] 18 Mar, 2019 [facility] [facility] [address] [address] Feb, Primary insomnia F51.01 ; Neuropathy G62 .9 and Encounter for Medicare annual wellness exam Z00.00 [facility] [address] [address] Feb, Neuropathy G62.9 and Encounter for Medic are annual wellness exam Z00.00 [facility] [address] [address] Feb, Primary insomnia F51.01 and High risk me dication use Z79.899 [facility] [address] [address] Jan, [facility] [address] [address] Jan, Neuropathy G62.9 [facility] [address] [address] Dec, [facility] [address] [address] Dec, Encounter for Medicare annual wellness e xam Z00.00 and Neuropathy G62.9 [facility] [address] [address] November, [facility] [address] [address] November, Encounter for Medicare annual wellness e xam Z00.00 ; 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 ; Mood disorder F39 ; Chronic fatigue, unspecified R53.82 and Neuropathy G62.9 [facility] [address] [address] November, Neuropathy G62.9 [facility] [address] [address] Oct, Neuropathy G62.9 [facility] [address] [address] Oct, Hypertension, benign I10 and Anxiety F41 .9 [facility] [address] [address] Oct, [facility] [address] [address] Oct, [facility] [address] [address] Oct, [facility] [address] [address] Oct, Neuropathy G62.9 [facility] [address] [address] Sep, [facility] [address] [address] Sep, Neuropathy G62.9 [facility] [address] [address] Sep, [facility] [address] [address] Sep, H/O malignant carcinoid tumor of rectum Z85.040 and Primary insomnia F51.01 [facility] [address] [address] Aug, [facility] [address] [address] Aug, Neuropathy G62.9 [facility] [address] [address] Aug, [facility] [address] [address] Jul, Non-recurrent acute suppurative otitis m edia of left ear without spontaneous rupture of tympanic membrane H66.002 [facility] [address] [address] Jul, Neuropathy G62.9 [facility] [address] [address] Jun, [facility] [address] [address] Jun, [facility] [address] [address] Jun, Neuropathy G62.9 [facility] [address] [address] Jun, [facility] [address] [address] Jun, [facility] [address] [address] Jun, Lumbar neuritis M54.16 [facility] [address] [address] May, Neuropathy G62.9 [facility] [address] [address] May, [facility] [address] [address] May, Neuropathy G62.9 and Hypertension, benig n I10 [facility] [address] [address] Apr, Polyneuropathy G62.9 and Hypertension, b enign I10 [facility] [address] [address] 17 Mar, 2018 Chronic pain syndrome G89.4 and Hyperten shalini, benign I10 [facility] [address] [address] Mar, Polyneuropathy G62.9 and Hypertension, b enign I10 [facility] [id number] [place] [address] Feb, [facility] [id number] [place] [address] Feb, Hypertension, benign I10 [facility] [id number] [place] [address] 15 Feb, 2018 Hypertension, benign I10 ; Polyneuropath y G62.9 and Primary insomnia F51.01 [facility] [id number] [place] [address] 17 Jan, 2018 Hypertension, benign I10 and Polyneuropa thy G62.9 [facility] [id number] [place] [address] Jan, Hypertension, benign I10 and Neuropathy G62.9 [facility] [address] [address] Jan, [facility] [address] [address] Dec, Polyneuropathy G62.9 [facility] [address] [address] Dec, Mood disorder F39 [facility] [address] [address] November, Polyneuropathy G62.9 [facility] [id number] [place] [address] November, Medicare annual wellness visit, initial Z00.00 [facility] [address] [address] November, Mood disorder F39 [facility] [address] [address] Oct, Polyneuropathy G62.9 [facility] [id number] [place] [address] Oct, [facility] [address] [address] Oct, [facility] [address] [address] Oct, Mood disorder F39 ; Attention to urostom y Z43.6 ; Chronic pain syndrome G89.4 and Polyneuropathy G62.9 [facility] [address] [address] Sep, Polyneuropathy G62.9 [facility] [address] [address] Sep, [facility] [facility] [address] [address] Sep, Polyneuropathy G62.9 [facility] [address] [address] Aug, Polyneuropathy G62.9 [facility] [facility] [address] [address] Aug, Malignant neoplasm of colon, unspecified part of colon C18.9 and Polyneuropathy G62.9 [facility] [address] [address] Aug, Neuropathy G62.9 and Polyneuropathy G62. 9 [facility] [address] [address] Jul, Encounter for drug screening Z02.83 [facility] [address] [address] Jul, Polyneuropathy G62.9 [facility] [address] [address] Jul, [facility] [address] [address] Jul, Neuropathy G62.9 and Anxiety F41.9 [facility] [address] [address] Jul, [place] [id number] [place] [address] Jul, [facility] [address] [address] Jul, [facility] [id number] [place] [address] Jul, Polyneuropathy G62.9 [facility] [address] [address] Jul, [facility] [id number] [place] [address] Jun, [facility] [address] [address] Jun, [facility] [id number] [place] [address] Jun, [facility] [address] [id number] [address] 07 Jun, 2017 Encounter for dental examina tion Z01.20 [facility] [id number] [place] [address] Jun, Polyneuropathy G62.9 and Anxiety F41.9 [facility] [id number] [place] [address] Jun, [facility] [address] [id number] [place] [address] May, Dental examination Z01.20 [facility] [id number] [place] [address] May, Polyneuropathy G62.9 [facility] [address] [address] Apr, Polyneuropathy G62.9 [facility] [id number] [place] [address] Apr, Polyneuropathy G62.9 [facility] [address] [address] Apr, Hypertension, benign I10 ; Polyneuropath y G62.9 and Anxiety F41.9 [facility] [address] [address] Apr, Primary insomnia F51.01 and Polyneuropat hy G62.9 [facility] [address] [address] Apr, Primary insomnia F51.01 and Polyneuropat hy G62.9 [facility] [address] [address] Mar, Primary insomnia F51.01 [facility] [address] [address] Mar, [facility] [address] [address] Mar, Polyneuropathy G62.9 [facility] [address] [address] Feb, Primary insomnia F51.01 [facility] [address] [address] Feb, [facility] [address] [address] Feb, [facility] [address] [address] Feb, Polyneuropathy G62.9 [facility] [address] [address] Feb, Primary insomnia F51.01 [facility] [address] [address] Jan, [facility] [address] [address] Jan, [facility] [address] [address] Dec, [facility] [address] [address] Dec, Primary insomnia F51.01 [facility] [address] [address] Dec, Primary insomnia F51.01 [facility] [address] [address] Dec, [facility] [address] [address] Dec, [facility] [address] [address] Dec, [facility] [address] [address] Dec, [facility] [address] [address] November, Primary insomnia F51.01 and Polyneuropat hy G62.9 [facility] [address] [address] November, [facility] [address] [address] November, Abdominal pain, left lower quadrant R10. 32 [facility] [address] [address] November, [facility] [address] [address] Oct, [facility] [address] [address] Oct, Abdominal pain, left lower quadrant R10. 32 ; H/O malignant carcinoid tumor of rectum Z85.040 and Neuropathy G62.9 [facility] [address] [address] Oct, [facility] [address] [address] Sep, [facility] [address] [id number] [id number] Sep, [facility] [id number] [place] [address] Sep, [facility] [address] [address] Aug, [facility] [address] [address] Aug, [facility] [address] [address] Aug, Abdominal pain, left lower quadrant R10. 32 ; Neuropathy G62.9 and Anxiety F41.9 [facility] [address] [place] [address] Jul, [facility] [address] [address] Jul, [facility] [address] [facility] [id number] [place] [address] Jul, [facility] [address] [address] Jul, [facility] [address] [address] Jul, [facility] [address] [address] Jun, [facility] [address] [address] May, [facility] [address] [address] May, [facility] [address] [address] Apr, [facility] [address] [address] Apr, Muscle spasms of both lower extremities M62.838 and Cellulitis, unspecified cellulitis site L03.90 [facility] [address] [address] Apr, [facility] [id number] [place] [address] 23 Mar, 2016 Generalized abdominal pain R10.84 [facility] [id number] [place] [address] 20 Mar, 2016 [facility] [id number] [place] [address] 14 Mar, 2016 [facility] [address] [address] 14 Mar, 2016 [facility] [address] [address] 13 Mar, 2016 [facility] [address] [address] 12 Mar, 2016 [facility] [address] [address] 09 Mar, 2016 [facility] [address] [address] 06 Mar, 2016 [facility] [id number] [place] [address] 17 Feb, 2016 Other specified diseases of anus and rec wilton K62.89 [facility] [id number] [place] [address] Feb, [facility] [address] [address] Feb, Dizziness R42 [facility] [address] [address] Feb, [facility] [id number] [place] [address] Jan, Polyneuropathy G62.9 [facility] [id number] [place] [address] Jan, Other specified diseases of anus and rec wilton K62.89 [facility] [id number] [place] [address] Jan, [facility] [address] [facility] [id number] [place] [address] Jan, [facility] [id number] [place] [address] Jan, [facility] [id number] [place] [address] Jan, Dizziness R42 [facility] [id number] [place] [address] Dec, [facility] [id number] [place] [address] Dec, [facility] [id number] [place] [address] Dec, [facility] [id number] [place] [address] Dec, Dizziness R42 [facility] [id number] [place] [address] November, [facility] [id number] [place] [address] Oct, [facility] [id number] [place] [address] Oct, [facility] [id number] [place] [address] Oct, [facility] [id number] [place] [address] Oct, [facility] [id number] [place] [address] Sep, [facility] [id number] [place] [address] Sep, Primary insomnia F51.01 [facility] [id number] [place] [address] Sep, Primary insomnia F51.01 [facility] [id number] [place] [address] Sep, [facility] [address] [address] Aug, [facility] [address] [address] Aug, [facility] [address] [address] Aug, Primary insomnia F51.01 ; Mood disorder F39 ; Nausea and vomiting, unspecified intactability, vomiting of unspecified type R11.2 and Diarrhea R19.7 [facility] [address] [address] Aug, [facility] [address] [address] Aug, Folliculitis L73.9 [facility] [address] [address] Aug, [facility] [address] [address] Aug, [facility] [address] [address] Jul, Folliculitis L73.9 [facility] [address] [address] Jul, [facility] [address] [address] Jun, Folliculitis L73.9 [facility] [address] [address] Jun, [facility] [address] [address] May, Polyneuropathy G62.9 [facility] [address] [address] May, Other specified diseases of anus and rec wilton K62.89 [facility] [address] [address] May, [facility] [id number] [place] [address] May, Primary insomnia F51.01 [facility] [id number] [place] [address] May, [facility] [id number] [place] [address] May, [facility] [address] [address] Apr, Other specified diseases of anus and rec wilton K62.89 ; Chronic fatigue R53.82 ; Urinary tract infection, site not specified N39.0 and Enterococcus as the cause of diseases classified elsewhere B95.2 [facility] [id number] [place] [address] Apr, [facility] [id number] [place] [address] Apr, [facility] [address] [address] Apr, Unspecified inflammatory and toxic neuro carol 357.9 [facility] [id number] [place] [address] Apr, [facility] [id number] [place] [address] Mar, [facility] [id number] [place] [address] Mar, [facility] [id number] [place] [address] 17 Mar, 2015 [facility] [id number] [place] [address] 14 Mar, 2015 Unspecified inflammatory and toxic neuro carol 357.9 [facility] [id number] [place] [address] 12 Mar, 2015 [facility] [address] [address] 11 Mar, 2015 [facility] [address] [id number] [place] [address] 11 Mar, 2015 [facility] [address] [id number] [place] [address] Mar, [facility] [address] [id number] [place] [address] Feb, [facility] [id number] [place] [address] Feb, [facility] [id number] [place] [address] Feb, [facility] [address] [id number] [place] [address] Jan, [facility] [id number] [place] [address] Jan, Nausea 787.02 and Neuropathy 355.9 [facility] [id number] [place] [address] Jan, [facility] [id number] [place] [address] Jan, [facility] [address] [id number] [place] [address] Jan, [facility] [address] [id number] [place] [id number] Jan, Dental examination V72.2 [facility] [address] [id number] [place] [address] Jan, [facility] [address] [id number] [place] [address] Dec, [facility] [address] [id number] [place] [address] Dec, [facility] [address] [id number] [place] [address] Dec, Neuropathy 355.9 [facility] [address] [id number] [place] [address] November, [facility] [address] [id number] [place] [address] November, [facility] [address] [facility] [id number] [place] [address] November, [facility] [address] [id number] [place] [address] Oct, [facility] [address] [id number] [place] [address] Oct, [facility] [address] [id number] [place] [address] Sep, [facility] [address] [id number] [place] [address] Sep, [facility] [address] [id number] [place] [address] Sep, [facility] [address] [id number] [place] [address] Sep, [facility] [address] [facility] [id number] [place] [address] Sep, [facility] [address] [id number] [place] [address] Sep, [facility] [address] [id number] [place] [address] Sep, [facility] [address] [id number] [place] [address] Sep, [facility] [address] [id number] [place] [address] Aug, [facility] [address] [id number] [place] [address] Aug, [facility] [address] [id number] [place] [address] Aug, [facility] [address] [id number] [place] [address] Aug, [facility] [address] [id number] [place] [address] Aug, [facility] [address] [id number] [place] [address] Aug, 2014 [facility] [address] [id number] [place] [address] Aug, 2014 [facility] [address] [id number] [place] [address] Aug, 2014 [facility] [address] [id number] [place] [address] Jul, [facility] [address] [id number] [place] [address] Jul, [facility] [address] [id number] [place] [address] Jun, [facility] [address] [id number] [place] [address] Jun, [facility] [address] [id number] [place] [address] Jun, [facility] [address] [id number] [place] [address] Jun, [facility] [address] [id number] [place] [address] Jun, [facility] [address] [id number] [place] [address] Jun, [facility] [address] [id number] [place] [address] Jun, [facility] [address] [id number] [place] [address] Jun, [facility] [address] [id number] [place] [address] Jun, [facility] [address] [id number] [place] [address] Jun, [facility] [address] [id number] [place] [address] Jun, [facility] [address] [id number] [place] [address] May, [facility] [address] [id number] [place] [address] May, [facility] [address] [id number] [place] [address] May, [facility] [address] [id number] [place] [address] May, [facility] [address] [id number] [place] [address] May, [facility] [address] [id number] [place] [address] May, [facility] [address] [id number] [place] [address] May, [facility] [address] [id number] [place] [address] May, [facility] [address] [id number] [place] [address] May, [facility] [address] [id number] [place] [address] Apr, [facility] [address] [id number] [place] [address] Apr, [facility] [address] [id number] [place] [address] Apr, [facility] [address] [id number] [place] [address] Apr, [facility] [address] [id number] [place] [address] Apr, [facility] [address] [id number] [place] [address] Mar, [facility] [address] [id number] [place] [address] Mar, [facility] [address] [id number] [place] [address] Feb, [facility] [address] [id number] [facility] [place] [address] Feb, [facility] [address] [id number] [facility] [place] [address] Feb, [facility] [address] [facility] [id number] [facility] [address] Feb, [facility] [address] [facility] [id number] [facility] [address] Feb, [facility] [address] [facility] [id number] [facility] [address] Feb, [facility] [address] [id number] [place] [address] Jan, [facility] [address] [facility] [id number] [place] [address] Jan, [facility] [address] [id number] [place] [address] Jan, [facility] [address] [facility] [id number] [facility] [place] [address] Jan, [facility] [address] [id number] [place] [address] Jan, [facility] [address] [facility] [id number] [place] [address] Jan, [facility] [address] [id number] [place] [address] Jan, [facility] [address] [id number] [place] [address] Jan, [facility] [address] [facility] [id number] [place] [address] Jan, [facility] [address] [facility] [id number] [place] [address] Jan, [facility] [address] [facility] [id number] [place] [address] Jan, [facility] [address] [id number] [place] [address] Dec, [facility] [address] [id number] [facility] [place] [address] Dec, [facility] [address] [facility] [id number] [facility] [address] Dec, [facility] [address] [facility] [id number] [facility] [address] Dec, [facility] [address] [id number] [facility] [address] Dec, [facility] [address] [facility] [id number] [facility] [address] Dec, [facility] [address] [id number] [facility] [address] November, [facility] [address] [id number] [place] [address] November, [facility] [address] [id number] [facility] [address] November, [facility] [address] [facility] [id number] [place] [address] November, [facility] [address] [id number] [place] [address] November, [facility] [address] [id number] [place] [address] November, [facility] [address] [id number] [place] [address] Oct, [facility] [address] [facility] [id number] [facility] [address] Oct, [facility] [address] [id number] [place] [address] Oct, [facility] [address] [facility] [id number] [place] [address] Oct, [facility] [address] [id number] [facility] [place] [address] Sep, [facility] [address] [id number] [place] [address] Sep, [facility] [address] [id number] [place] [address] Sep, [facility] [address] [id number] [place] [address] Sep, [facility] [address] [id number] [place] [address] Sep, [facility] [address] [id number] [place] [address] Aug, [facility] [address] [id number] [place] [address] Aug, [facility] [address] [id number] [place] [address] Aug, [facility] [address] [id number] [place] [address] Aug, [facility] [address] [id number] [place] [address] Aug, [facility] [address] [place] [id number] May, [facility] [address] [id number] [place] [address] May, [facility] [address] [id number] [place] [address] May, [facility] [address] [id number] [place] [address] May, [facility] [address] [id number] [place] [address] May, [facility] [id number] [place] [address] Apr, [facility] [address] [id number] [place] [address] Apr, [facility] [address] [id number] [place] [address] Apr, [facility] [address] [id number] [place] [address] Apr, [facility] [address] [facility] [id number] [place] [address] Apr, [facility] [address] [facility] [id number] [place] [address] Apr, [facility] [address] [id number] [place] [address] Apr, [facility] [address] [facility] [id number] [place] [address] Mar, [facility] [address] [id number] [place] [address] Mar, [facility] [address] [id number] [place] [address] Mar, [facility] [address] [id number] [place] [address] Mar, [facility] [address] [id number] [place] [address] Mar, [facility] [address] [id number] [place] [address] Mar, [facility] [address] [id number] [place] [address] Feb, [facility] [address] [id number] [place] [address] Feb, [facility] [address] [id number] [place] [address] Feb, [facility] [address] [facility] [id number] [place] [address] Feb, [facility] [address] [id number] [place] [address] Feb, [facility] [address] [id number] [place] [address] Feb, [facility] [address] [id number] [place] [address] Jan, [facility] [address] [facility] [id number] [place] [address] Dec, [facility] [address] [id number] [place] [address] Dec, [facility] [address] [id number] [place] [address] Dec, [facility] [address] [id number] [place] [address] Dec, [facility] [address] [facility] [id number] [facility] [address] Dec, [facility] [address] [id number] [place] [address] Dec, [facility] [address] [id number] [place] [address] Dec, [facility] [address] [id number] [place] [address] Dec, [facility] [address] [id number] [place] [address] Dec, [facility] [address] [id number] [place] [address] November, [facility] [address] [id number] [place] [address] November, [facility] [address] [id number] [place] [address] Oct, [facility] [address] [id number] [place] [address] Sep, [facility] [address] [id number] [place] [address] Sep, [facility] [address] [id number] [place] [address] 15 Sep, 2012 [facility] [address] [id number] [place] [address] Sep, [facility] [address] [id number] [place] [address] Aug, [facility] [address] [id number] [place] [address] Aug, [facility] [id number] [place] [address] Jul, [facility] [id number] [place] [address] Jul, [facility] [id number] [place] [address] Jul, [facility] [id number] [place] [address] Sep, [facility] [id number] [place] [address] Sep, [facility] [id number] [place] [address] Sep, IMMUNIZATIONS No Known Immunizations SOCIAL HISTORY [...] [facility] 01/18/2018 Hospitalization History [facility] - infection 4 days 05/2018
--- OUTSIDE RECORDS SUMMARY | 2020-01-14 23:25 | XMS REPORT ---
Author Author Melvin BENTLEY Organization [facility] Address [address] [place] [address] Care Team Providers Care Roving Tester Laboratory Name Role Phone LINDA BENTLEY Unavailable PROBLEMS Type Condition ICD9-CM Code MPX69-NW Code Onset Dates Condition S tatus SNOMED Code Problem Incontinence of feces, unspecified fecal incontinence type R15.9 Active 51890873 Problem Primary insomnia F51.01 Active 193 941227 Problem Hydronephrosis with ureteral stricture, not else where classified N13.1 Active 35216152 Problem Chronic fatigue, unspecified R53.82 A ctive 365574460 Problem Hypertension, benign I10 Active 41873166 Problem Mood disorder F39 Active 846707 05 Problem Neuropathy G62.9 Active 171870002 Problem Chronic pain syndrome G89.4 Active 187251258 Problem Abdominal pain, left lower quadrant R10.32 Active 456886403 Problem 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 Active 966105703 Problem 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 981722253 Problem Anxiety F41.9 Active 53412809 Problem Polyneuropathy G62.9 Active 56126 000 Problem Malignant neoplasm of colon, unspecified part of colon C18.9 Active 937771146 Problem Attention to urostomy Z43.6 Active 602343109 ALLERGIES No Information ENCOUNTERS Encounter Location Date Diagnosis [place] [id number] [facility] [id number] [address] [place] [phone] 10 Sep, 2019 Neuropathy G62.9 ; Anxiety F 41.9 and Encounter for Medicare annual wellness exam Z00.00 [place] [address] [address] [facility] [id number] [address] [place] [phone] 12 Aug, 2019 Anxiety F41.9 ; Neuropathy G 62.9 and Encounter for Medicare annual wellness exam Z00.00 [place] [address] [address] [facility] [id number] [address] [place] [phone] Jul, [facility] [address] [id number] [address] [place] [address] Jul, Primary insomnia F51.01 and Anxiety F41.9 [facility] [address] [id number] [address] [place] [phone] 14 Jul, 2019 Primary insomnia F51.01 ; Ne uropathy G62.9 and Encounter for Medicare annual wellness exam Z00.00 [facility] [address] [id number] [address] [place] [phone] Jun, Neuropathy G62.9 and Encount er for Medicare annual wellness exam Z00.00 [facility] [address] [id number] [address] [place] [address] Jun, Primary insomnia F51.01 [facility] [address] [id number] [address] [place] [address] Jun, Primary insomnia F51.01 ; En counter for Medicare annual wellness exam Z00.00 and Neuropathy G62.9 [facility] [address] [id number] [address] [place] [phone] Jun, Malignant neoplasm of colon, unspecified part of colon C18.9 and Chronic fatigue, unspecified R53.82 [facility] [address] [id number] [address] [place] [address] May, Neuropathy G62.9 and Encount er for Medicare annual wellness exam Z00.00 [facility] [address] [id number] [address] [place] [address] 15 May, 2019 Primary insomnia F51.01 [facility] [address] [id number] [address] [place] [phone] May, Neuropathy G62.9 and Anxiety F41.9 [facility] [address] [id number] [address] [place] [address] Apr, Encounter for Medicare annua l wellness exam Z00.00 [facility] [address] [id number] [address] [place] [phone] 16 Apr, 2019 Neuropathy G62.9 and Encount er for Medicare annual wellness exam Z00.00 [facility] [address] [id number] [address] [place] [phone] 26 Mar, 2019 Neuropathy G62.9 and Primary insomnia F51.01 [facility] [address] [id number] [address] [place] [address] Mar, [facility] [address] [id number] [address] [place] [address] Feb, Primary insomnia F51.01 ; Ne uropathy G62.9 and Encounter for Medicare annual wellness exam Z00.00 [facility] [address] [id number] [address] [place] [phone] Feb, Neuropathy G62.9 and Encount er for Medicare annual wellness exam Z00.00 [facility] [address] [id number] [address] [place] [address] Feb, Primary insomnia F51.01 and High risk medication use Z79.899 [facility] [address] [id number] [address] [place] [address] Jan, [facility] [address] [id number] [address] [place] [address] Jan, Neuropathy G62.9 [facility] [address] [id number] [address] [place] [address] Dec, [facility] [address] [id number] [address] [place] [address] Dec, Encounter for Medicare annua l wellness exam Z00.00 and Neuropathy G62.9 [facility] [address] [id number] [address] [place] [address] November, [facility] [address] [id number] [address] [place] [address] November, Encounter for Medicare annua l wellness exam Z00.00 ; 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 ; Mood disorder F39 ; Chronic fatigue, unspecified R53.82 and Neuropathy G62.9 [facility] [address] [id number] [address] [place] [phone] November, Neuropathy G62.9 [facility] [address] [id number] [address] [place] [address] Oct, Neuropathy G62.9 [facility] [address] [id number] [address] [place] [address] Oct, Hypertension, benign I10 and Anxiety F41.9 [facility] [address] [id number] [address] [place] [address] Oct, [facility] [address] [id number] [address] [place] [address] Oct, [facility] [address] [id number] [address] [place] [address] Oct, [facility] [address] [id number] [address] [place] [address] Oct, Neuropathy G62.9 [facility] [address] [id number] [address] [place] [address] Sep, [facility] [address] [id number] [address] [place] [address] Sep, Neuropathy G62.9 [facility] [address] [id number] [address] [place] [address] Sep, [facility] [address] [id number] [address] [place] [address] Sep, H/O malignant carcinoid tumo r of rectum Z85.040 and Primary insomnia F51.01 [facility] [address] [id number] [address] [place] [address] Aug, [facility] [address] [id number] [address] [place] [address] Aug, Neuropathy G62.9 [facility] [address] [facility] [id number] [address] [place] [phone] Aug, [facility] [address] [facility] [id number] [address] [place] [address] Jul, Non-recurrent acute suppurat francine otitis media of left ear without spontaneous rupture of tympanic membrane H66.002 [facility] [address] [facility] [id number] [address] [place] [address] Jul, Neuropathy G62.9 [facility] [address] [facility] [id number] [address] [place] [address] Jun, [facility] [address] [facility] [id number] [address] [place] [address] Jun, [facility] [address] [place] [id number] [address] [place] [address] Jun, Neuropathy G62.9 [facility] [address] [facility] [id number] [address] [place] [address] Jun, [facility] [address] [facility] [id number] [address] [place] [address] Jun, [facility] [address] [facility] [id number] [address] [place] [address] Jun, Lumbar neuritis M54.16 [facility] [address] [facility] [id number] [address] [place] [phone] May, Neuropathy G62.9 [facility] [address] [facility] [id number] [address] [place] [address] May, [facility] [address] [facility] [id number] [address] [place] [address] May, Neuropathy G62.9 and Hyperte nsion, benign I10 [facility] [address] [facility] [id number] [address] [place] [address] Apr, Polyneuropathy G62.9 and Hyp ertension, benign I10 [facility] [address] [facility] [id number] [address] [place] [address] 17 Mar, 2018 Chronic pain syndrome G89.4 and Hypertension, benign I10 [facility] [address] [facility] [id number] [address] [place] [phone] 11 Mar, 2018 Polyneuropathy G62.9 and Hyp ertension, benign I10 [facility] [address] [facility] [id number] [address] [place] [phone] 27 Feb, 2018 [facility] [address] [facility] [id number] [address] [place] [phone] 16 Feb, 2018 Hypertension, benign I10 [facility] [address] [place] [id number] [place] [address] 15 Feb, 2018 Hypertension, benign I10 ; P olyneuropathy G62.9 and Primary insomnia F51.01 [facility] [address] [place] [id number] [address] [place] [address] 17 Jan, 2018 Hypertension, benign I10 and Polyneuropathy G62.9 [facility] [address] [facility] [id number] [address] [place] [address] Jan, Hypertension, benign I10 and Neuropathy G62.9 [facility] [address] [place] [id number] [address] [place] [phone] Jan, [facility] [address] [place] [id number] [address] [place] [address] Dec, Polyneuropathy G62.9 [facility] [address] [facility] [id number] [address] [place] [id number] 14 Dec, 2017 Mood disorder F39 [facility] [address] [place] [id number] [place] [address] November, Polyneuropathy G62.9 [facility] [address] [place] [id number] [address] [place] [address] November, Medicare annual wellness vis it, initial Z00.00 [facility] [address] [place] [id number] [address] [place] [address] November, Mood disorder F39 [facility] [address] [facility] [id number] [address] [place] [address] Oct, Polyneuropathy G62.9 [facility] [address] [facility] [id number] [address] [place] [address] Oct, [facility] [address] [facility] [id number] [address] [place] [address] Oct, [facility] [address] [facility] [id number] [address] [place] [address] Oct, Mood disorder F39 ; Attentio n to urostomy Z43.6 ; Chronic pain syndrome G89.4 and Polyneuropathy G62.9 [facility] [address] [facility] [id number] [address] [place] [address] Sep, Polyneuropathy G62.9 [facility] [address] [facility] [id number] [address] [place] [address] Sep, [facility] [address] [facility] [id number] [address] [place] [address] Sep, Polyneuropathy G62.9 [facility] [address] [facility] [id number] [address] [place] [address] Aug, Polyneuropathy G62.9 [facility] [address] [facility] [id number] [address] [place] [address] Aug, Malignant neoplasm of colon, unspecified part of colon C18.9 and Polyneuropathy G62.9 [facility] [address] [facility] [id number] [address] [place] [address] Aug, Neuropathy G62.9 and Polyneu ropathy G62.9 [facility] [address] [facility] [id number] [address] [place] [address] Jul, Encounter for drug screening Z02.83 [facility] [address] [id number] [address] [place] [address] Jul, Polyneuropathy G62.9 [facility] [address] [id number] [address] [place] [address] Jul, [facility] [address] [facility] [id number] [address] [place] [address] Jul, Neuropathy G62.9 and Anxiety F41.9 [facility] [address] [id number] [address] [place] [address] Jul, [facility] [address] [id number] [address] [place] [address] Jul, [facility] [address] [facility] [id number] [address] [place] [address] Jul, [facility] [address] [facility] [id number] [address] [place] [address] Jul, Polyneuropathy G62.9 [facility] [address] [facility] [id number] [address] [place] [address] Jul, [facility] [address] [facility] [id number] [address] [place] [address] Jun, [facility] [address] [facility] [id number] [address] [place] [address] Jun, [facility] [address] [facility] [id number] [address] [place] [address] Jun, [facility] [address] [id number] [address] [address] 07 Jun, 2017 Encounter for dental examina tion Z01.20 [facility] [address] [facility] [id number] [address] [place] [address] Jun, Polyneuropathy G62.9 and Anx iety F41.9 [facility] [address] [facility] [id number] [address] [place] [address] Jun, [facility] [id number] [place] [address] May, Dental examination Z01.20 [facility] [id number] [place] [address] May, Polyneuropathy G62.9 [facility] [address] [place] [id number] [address] [place] [address] Apr, Polyneuropathy G62.9 [facility] [address] [place] [id number] [address] [place] [address] Apr, Polyneuropathy G62.9 [facility] [address] [place] [id number] [address] [place] [address] Apr, Hypertension, benign I10 ; P olyneuropathy G62.9 and Anxiety F41.9 [facility] [address] [place] [id number] [address] [place] [address] Apr, Primary insomnia F51.01 and Polyneuropathy G62.9 [facility] [address] [place] [id number] [address] [place] [address] Apr, Primary insomnia F51.01 and Polyneuropathy G62.9 [facility] [address] [place] [id number] [address] [place] [address] Mar, Primary insomnia F51.01 [facility] [id number] [place] [address] Mar, [facility] [address] [place] [id number] [address] [place] [address] Mar, Polyneuropathy G62.9 [facility] [address] [place] [id number] [address] [place] [address] Feb, Primary insomnia F51.01 [facility] [address] [place] [id number] [address] [place] [address] Feb, [facility] [address] [place] [id number] [address] [place] [address] Feb, [facility] [address] [id number] [address] [place] [address] Feb, Polyneuropathy G62.9 [facility] [address] [id number] [address] [place] [address] Feb, Primary insomnia F51.01 [facility] [address] [id number] [address] [place] [address], [place] [address] Jan, [facility] [address] [id number] [address] [place] [address] Jan, [facility] [address] [id number] [address] [place] [address] Dec, [facility] [address] [id number] [address] [place] [address] Dec, Primary insomnia F51.01 [facility] [address] [id number] [address] [place] [address] Dec, Primary insomnia F51.01 [facility] [address] [id number] [address] [place] [address], [place] [address] Dec, [facility] [address] [id number] [address] [place] [address] Dec, [facility] [address] [id number] [address] [place] [address] Dec, [facility] [address] [id number] [address] [place] [address] Dec, [facility] [address] [facility] [id number] [address] [place] [address] November, Primary insomnia F51.01 and Polyneuropathy G62.9 [facility] [address] [id number] [address] [place] [address] November, [facility] [address] [facility] [id number] [address] [place] [address] November, Abdominal pain, left lower q uadrant R10.32 [facility] [address] [id number] [address] [place] [address] November, [facility] [address] [facility] [id number] [address] [place] [address] Oct, [facility] [address] [facility] [id number] [address] [place] [address] Oct, Abdominal pain, left lower q uadrant R10.32 ; H/O malignant carcinoid tumor of 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 and Neuropathy G62.9 [facility] [address] [id number] [address] [place] [address] Oct, [facility] [address] [facility] [id number] [address] [place] [address] Sep, [facility] [id number] [id number] Sep, [facility] [address] [facility] [id number] [address] [place] [address] Sep, [facility] [address] [facility] [id number] [address] [place] [address] Aug, [facility] [address] [facility] [id number] [address] [place] [address] Aug, [facility] [address] [facility] [id number] [address] [place] [address] Aug, Abdominal pain, left lower q uadrant R10.32 ; Neuropathy G62.9 and Anxiety F41.[address] [facility] [address] [id number] [place] [address] Jul, [facility] [address] [facility] [id number] [address] [place] [address] Jul, [facility] [address] [facility] [id number] [address] [place] [address] Jul, [facility] [address] [facility] [id number] [address] [place] [address] Jul, [facility] [address] [id number] [address] [place] [address] Jul, [facility] [address] [id number] [address] [place] [address] Jun, [facility] [address] [id number] [address] [place] [address] May, [facility] [address] [id number] [address] [place] [address] May, [facility] [address] [id number] [address] [place] [phone] Apr, [facility] [address] [id number] [address] [place] [phone] Apr, Muscle spasms of both lower extremities M62.838 and Cellulitis, unspecified cellulitis site L03.90 [facility] [address] [id number] [address] [place] [id number] Apr, [facility] [address] [id number] [address] [place] [phone] 23 Mar, 2016 Generalized abdominal pain R 10.84 [facility] [address] [id number] [address] [place] [phone] 20 Mar, 2016 [facility] [address] [id number] [address] [place] [phone] 14 Mar, 2016 [facility] [address] [id number] [address] [place] [phone] 14 Mar, 2016 [facility] [address] [id number] [address] [place] [phone] 13 Mar, 2016 [facility] [address] [id number] [address] [place] [phone] 12 Mar, 2016 [facility] [address] [id number] [address] [place] [phone] 09 Mar, 2015 [facility] [address] [id number] [address] [place] [phone] Mar, [facility] [address] [id number] [address] [place] [phone] Feb, Other specified diseases of anus and rectum K62.89 [facility] [address] [id number] [address] [place] [phone] Feb, [facility] [address] [id number] [address] [place] [phone] Feb, Dizziness R42 [facility] [address] [id number] [address] [place] [phone] Feb, [facility] [address] [id number] [address] [place] [phone] Jan, Polyneuropathy G62.9 [facility] [address] [id number] [address] [place] [phone] Jan, Other specified diseases of anus and rectum K62.89 [facility] [facility] [address] [id number] [address] [place] [address] Jan, [facility] [address] [id number] [address] [place] [address] Jan, [facility] [address] [id number] [address] [place] [address] Jan, [facility] [address] [id number] [address] [place] [address] Jan, Dizziness R42 [facility] [address] [id number] [address] [place] [address] Dec, [facility] [address] [id number] [address] [place] [address] Dec, [facility] [address] [id number] [address] [place] [address] Dec, [facility] [address] [id number] [address] [place] [address] Dec, Dizziness R42 [facility] [address] [facility] [id number] [address] [place] [address] November, [facility] [address] [facility] [id number] [address] [place] [address] Oct, [facility] [address] [facility] [id number] [address] [place] [address] Oct, [facility] [address] [facility] [id number] [address] [place] [address] Oct, [facility] [address] [facility] [id number] [address] [place] [address] Oct, [facility] [address] [facility] [id number] [address] [place] [address] Sep, [facility] [address] [facility] [id number] [address] [place] [address] Sep, Primary insomnia F51.01 [facility] [address] [facility] [id number] [address] [place] [address] Sep, Primary insomnia F51.01 [facility] [address] [facility] [id number] [address] [place] [phone] Sep, [facility] [address] [id number] [address] [place] [address] Aug, [facility] [address] [id number] [address] [place] [address] Aug, [facility] [address] [facility] [id number] [address] [place] [address] Aug, Primary insomnia F51.01 ; Mo od disorder F39 ; Nausea and vomiting, unspecified intactability, vomiting of unspecified type R11.2 and Diarrhea R19.7 [facility] [address] [id number] [address] [place] [address] Aug, [facility] [address] [id number] [address] [place] [address] Aug, Folliculitis L73.9 [facility] [address] [id number] [address] [place] [address] Aug, [facility] [address] [id number] [address] [place] [address] Aug, [facility] [address] [id number] [address] [place] [address] Jul, Folliculitis L73.9 [facility] [address] [id number] [address] [place] [address] Jul, [facility] [address] [id number] [address] [place] [address] Jun, Folliculitis L73.9 [facility] [address] [facility] [id number] [address] [place] [address] Jun, [facility] [address] [facility] [id number] [address] [place] [address] May, Polyneuropathy G62.9 [facility] [address] [id number] [address] [place] [address] May, Other specified diseases of anus and rectum K62.89 [facility] [address] [facility] [id number] [address] [place] [address] May, [facility] [address] [facility] [id number] [address] [place] [address] May, Primary insomnia F51.01 [facility] [address] [facility] [id number] [address] [place] [address] May, [facility] [address] [facility] [id number] [address] [place] [address] May, [facility] [address] [facility] [id number] [address] [place] [phone] Apr, Other specified diseases of anus and rectum K62.89 ; Chronic fatigue R53.82 ; Urinary tract infection, site not specified N39.0 and Enterococcus as the cause of diseases classified elsewhere B95.2 [facility] [address] [id number] [address] [place] [address] 16 Apr, 2015 [facility] [address] [id number] [address] [place] [address] 15 Apr, 2015 [facility] [address] [id number] [address] [place] [phone] 14 Apr, 2015 Unspecified inflammatory and toxic neuropathy 357.9 [facility] [address] [id number] [address] [place] [address] 05 Apr, 2015 [facility] [address] [id number] [address] [place] [id number] 26 Mar, 2015 [facility] [address] [id number] [address] [place] [phone] 23 Mar, 2015 [facility] [address] [id number] [address] [place] [phone] 17 Mar, 2015 [facility] [address] [id number] [address] [place] [phone] 14 Mar, 2015 Unspecified inflammatory and toxic neuropathy 357.9 [facility] [address] [id number] [address] [place] [address] 12 Mar, 2015 [facility] [address] [id number] [address] [place] [phone] 11 Mar, 2015 [facility] [address] [id number] [address] [place] [id number] 11 Mar, 2015 [facility] [address] [id number] [address] [place] [phone] 10 Mar, 2015 [facility] [address] [id number] [address] [place] [address] Feb, [facility] [address] [id number] [address] [place] [phone] Feb, [facility] [address] [id number] [address] [place] [address] Feb, [facility] [address] [id number] [address] [place] [address] Jan, [facility] [address] [id number] [address] [place] [address] Jan, Nausea 787.02 and Neuropathy 355.9 [facility] [address] [id number] [address] [place] [phone] Jan, [facility] [address] [id number] [address] [place] [address] Jan, [facility] [address] [id number] [address] [place] [phone] Jan, [facility] [address] [id number] [address] [place] [id number] Jan, Dental examination V72.2 [facility] [address] [id number] [address] [place] [address] Jan, [facility] [address] [id number] [address] [place] [phone] Dec, [facility] [address] [id number] [address] [place] [address] Dec, [facility] [address] [id number] [address] [place] [phone] Dec, Neuropathy 355.9 [facility] [address] [id number] [address] [place] [phone] November, [facility] [address] [id number] [address] [place] [phone] November, [facility] [address] [id number] [address] [place] [phone] November, [facility] [address] [id number] [address] [place] [phone] Oct, [facility] [address] [id number] [address] [place] [address], [place] [address] Oct, [facility] [address] [id number] [address] [place] [address], [place] [address] Sep, [facility] [address] [id number] [address] [place] [address], [place] [address] Sep, [facility] [address] [id number] [address] [place] [address], [place] [address] Sep, [facility] [address] [id number] [address] [place] [address], [place] [address] Sep, [facility] [address] [id number] [address] [place] [address], [place] [address] Sep, [facility] [address] [id number] [address] [place] [address], [place] [address] Sep, [facility] [address] [id number] [address] [place] [address], [place] [address] Sep, [facility] [address] [id number] [address] [place] [address], [place] [address] Sep, [facility] [address] [id number] [address] [place] [address], [place] [address] Aug, 2014 [facility] [address] [id number] [address] [place] [address], [place] [address] Aug, 2014 [facility] [address] [id number] [address] [place] [address], [place] [address] Aug, 2014 [facility] [address] [id number] [address] [place] [address], [place] [address] Aug, 2014 [facility] [address] [id number] [address] [place] [address], [place] [address] Aug, 2014 [facility] [address] [id number] [address] [place] [address], [place] [address] Aug, 2014 [facility] [address] [id number] [address] [place] [address], [place] [address] Aug, [facility] [address] [id number] [address] [place] [address], [place] [address] Aug, [facility] [address] [id number] [address] [place] [address], [place] [address] Jul, [facility] [address] [id number] [address] [place] [address], [place] [address] Jul, [facility] [address] [id number] [address] [place] [address], [place] [address] Jun, [facility] [address] [id number] [address] [place] [address], [place] [address] Jun, [facility] [address] [id number] [address] [place] [address], [place] [address] Jun, [facility] [address] [id number] [address] [place] [address], [place] [address] Jun, [facility] [address] [id number] [address] [place] [address], [place] [address] Jun, [facility] [address] [id number] [address] [place] [address], [place] [address] Jun, [facility] [address] [id number] [address] [place] [address], [place] [address] Jun, [facility] [address] [id number] [address] [place] [address], [place] [address] Jun, [facility] [address] [id number] [address] [place] [address], [place] [address] Jun, [facility] [address] [id number] [address] [place] [address], [place] [address] Jun, [facility] [address] [id number] [address] [place] [address], [place] [address] Jun, [facility] [address] [id number] [address] [place] [address], [place] [address] May, [facility] [address] [id number] [address] [place] [address], [place] [address] May, [facility] [address] [id number] [address] [place] [address], [place] [address] May, [facility] [address] [id number] [address] [place] [address], [place] [address] May, [facility] [address] [id number] [address] [place] [address], [place] [address] May, [facility] [address] [id number] [address] [place] [address], [place] [address] May, [facility] [address] [id number] [address] [place] [address], [place] [address] May, [facility] [address] [id number] [address] [place] [address], [place] [address] May, [facility] [address] [id number] [address] [place] [address], [place] [address] May, [facility] [address] [id number] [address] [place] [address], [place] [address] Apr, [facility] [address] [id number] [address] [place] [address], [place] [address] Apr, [facility] [address] [id number] [address] [place] [address], [place] [address] Apr, [facility] [address] [id number] [address] [place] [address], [place] [address] Apr, [facility] [address] [id number] [address] [place] [address], [place] [address] Apr, [facility] [address] [id number] [address] [place] [address], [place] [address] Mar, [facility] [address] [id number] [address] [place] [address], [place] [address] Mar, [facility] [address] [id number] [address] [place] [address], [place] [address] Feb, [facility] [address] [id number] [facility] [place] [address] Feb, [facility] [address] [id number] [facility] [address] Feb, [facility] [address] [id number] [facility] [place] [address] Feb, [facility] [address] [id number] [address] [place] [address], [place] [address] Feb, [facility] [address] [id number] [address] [place] [address], [place] [address] Feb, [facility] [address] [id number] [address] [place] [address], [place] [address] Jan, [facility] [address] [id number] [address] [place] [address], [place] [address] Jan, [facility] [address] [id number] [address] [place] [address], [place] [address] Jan, [facility] [address] [id number] [address] [place] [address], [place] [address] Jan, [facility] [address] [id number] [address] [place] [address], [place] [address] Jan, [facility] [address] [id number] [address] [place] [address], [place] [address] Jan, [facility] [address] [id number] [address] [place] [address], [place] [address] Jan, [facility] [address] [id number] [address] [place] [address], [place] [address] Jan, [facility] [address] [id number] [address] [place] [address], [place] [address] Jan, [facility] [address] [id number] [address] [place] [address], [place] [address] Jan, [facility] [address] [id number] [address] [place] [address], [place] [address] Jan, [facility] [address] [id number] [facility] [place] [address] Dec, [facility] [address] [id number] [address] [place] [address], [place] [address] Dec, [facility] [address] [id number] [address] [place] [address], [place] [address] Dec, [facility] [address] [id number] [address] [place] [address], [place] [address] Dec, [facility] [address] [id number] [address] [place] [address], [place] [address] Dec, [facility] [address] [id number] [address] [place] [address], [place] [address] Dec, [facility] [address] [id number] [address] [place] [address], [place] [address] November, [facility] [address] [id number] [address] [place] [address], [place] [address] November, [facility] [address] [id number] [address] [place] [address], [place] [address] November, [facility] [address] [id number] [address] [place] [address], [place] [address] November, [facility] [address] [id number] [address] [place] [address], [place] [address] November, [facility] [address] [id number] [address] [place] [address], [place] [address] November, [facility] [address] [id number] [address] [place] [address], [place] [address] Oct, [facility] [address] [id number] [address] [place] [address], [place] [address] Oct, [facility] [address] [id number] [address] [place] [address], [place] [address] Oct, [facility] [address] [id number] [address] [place] [address], [place] [address] 16 Oct, 2013 [facility] [address] [id number] [address] [place] [address], [place] [address] 17 Sep, 2013 [facility] [address] [id number] [address] [place] [address], [place] [address] 17 Sep, 2013 [facility] [address] [id number] [address] [place] [address], [place] [address] Sep, [facility] [address] [id number] [address] [place] [address], [place] [address] Sep, [facility] [address] [id number] [address] [place] [address], [place] [address] Sep, [facility] [address] [id number] [address] [place] [address], [place] [address] Aug, [facility] [address] [id number] [address] [place] [address], [place] [address] Aug, [facility] [address] [id number] [address] [place] [address], [place] [address] Aug, [facility] [address] [id number] [address] [place] [address], [place] [address] Aug, [facility] [address] [id number] [address] [place] [address], [place] [address] 14 Aug, 2013 [facility] [place] [address] [place] [id number] May, [facility] [address] [id number] [address] [place] [address], [place] [address] May, [facility] [address] [id number] [address] [place] [address], [place] [address] May, [facility] [address] [id number] [address] [place] [address], [place] [address] May, [facility] [address] [id number] [address] [place] [address], [place] [address] May, [facility] [address] [id number] [address] [place] [address], [place] [address] Apr, [facility] [address] [id number] [address] [place] [address], [place] [address] Apr, [facility] [address] [id number] [address] [place] [address], [place] [address] Apr, [facility] [address] [id number] [address] [place] [address], [place] [address] Apr, [facility] [address] [id number] [address] [place] [address], [place] [address] Apr, [facility] [address] [id number] [address] [place] [address], [place] [address] Apr, [facility] [address] [id number] [address] [place] [address], [place] [address] Apr, [facility] [address] [id number] [address] [place] [address], [place] [address] Mar, [facility] [address] [id number] [address] [place] [address], [place] [address] Mar, [facility] [address] [id number] [address] [place] [id number] 24 Mar, 2013 [facility] [address] [id number] [address] [place] [phone] 16 Mar, 2013 [facility] [address] [id number] [address] [place] [phone] 12 Mar, 2013 [facility] [address] [id number] [address] [place] [address], [place] [address] 06 Mar, 2013 [facility] [address] [id number] [address] [place] [address], [place] [address] Feb, [facility] [address] [id number] [address] [place] [phone] Feb, [facility] [address] [id number] [address] [place] [phone] Feb, [facility] [address] [id number] [address] [place] [address], [place] [address] Feb, [facility] [address] [id number] [address] [place] [address], [place] [address] Feb, [facility] [address] [id number] [address] [place] [address], [place] [address] Feb, [facility] [address] [id number] [address] [place] [address], [place] [address] Jan, [facility] [address] [id number] [address] [place] [address], [place] [address] Dec, [facility] [address] [id number] [address] [place] [address], [place] [address] Dec, [facility] [address] [id number] [address] [place] [address], [place] [address] Dec, [facility] [address] [id number] [address] [place] [address], [place] [address] Dec, [facility] [address] [id number] [address] [place] [address], [place] [address] Dec, [facility] [address] [id number] [address] [place] [address], [place] [address] Dec, [facility] [address] [id number] [address] [place] [address], [place] [address] Dec, [facility] [address] [id number] [address] [place] [address], [place] [address] Dec, [facility] [address] [id number] [address] [place] [address], [place] [address] Dec, [facility] [address] [id number] [address] [place] [address], [place] [address] November, [facility] [address] [id number] [address] [place] [address], [place] [address] November, [facility] [address] [id number] [address] [place] [id number] Oct, [facility] [address] [id number] [address] [place] [phone] Sep, [facility] [address] [id number] [address] [place] [phone] Sep, [facility] [address] [id number] [address] [place] [id number] Sep, [facility] [address] [id number] [address] [place] [phone] Sep, [facility] [address] [id number] [address] [place] [id number] Aug, [facility] [address] [id number] [address] [place] [phone] Aug, [facility] [address] [id number] [address] [place] [id number] Jul, [facility] [address] [id number] [address] [place] [id number] Jul, [facility] [address] [id number] [address] [place] [id number] Jul, [facility] [address] [id number] [address] [place] [id number] Sep, [facility] [address] [id number] [address] [place] [id number] Sep, [facility] [address] [id number] [address] [place] [id number] 10 Sep, 2011 IMMUNIZATIONS No Known Immunizations [...] bowel obstruction, Dehydration -[facility] 01[facility]01/17 [facility] Hospitalization History [facility] - infection 4 days 05/2018
--- OUTSIDE RECORDS SUMMARY | 2020-01-14 23:25 | XMS REPORT ---
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 [employer] Name Role Phone LINDA BENTLEY Unavailable PROBLEMS Type Condition ICD9-CM Code FHL93-AG Code Onset Dates Condition S tatus SNOMED Code Problem Incontinence of feces, unspecified fecal incontinence type R15.9 Active 14220676 Problem Primary insomnia F51.01 Active 193 652980 Problem Hydronephrosis with ureteral stricture, not else where classified N13.1 Active 38026372 Problem Chronic fatigue, unspecified R53.82 A ctive 511361115 Problem Hypertension, benign I10 Active 26782737 Problem Mood disorder F39 Active 145070 05 Problem Neuropathy G62.9 Active 056197692 Problem Chronic pain syndrome G89.4 Active 212577338 Problem Abdominal pain, left lower quadrant R10.32 Active 422681339 Problem 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 Active 661152238 Problem 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 395953460 Problem Anxiety F41.9 Active 11675386 Problem Polyneuropathy G62.9 Active 10345 000 Problem Malignant neoplasm of colon, unspecified part of colon C18.9 Active 058953944 Problem Attention to urostomy Z43.6 Active 173599568 ALLERGIES No Information ENCOUNTERS Encounter Location Date Diagnosis [facility] [id number] [place] [address] Sep, [facility] [address] [place] [address] 10 Sep, 2019 Neuropathy G62.9 ; Anxiety F41.9 and Enc ounter for Medicare annual wellness exam Z00.00 [facility] [id number] [place] [address] 12 Aug, 2019 Anxiety F41.9 ; Neuropathy G62.9 and Enc ounter for Medicare annual wellness exam Z00.00 [facility] [id number] [place] [address] Jul, [facility] [id number] [place] [address] Jul, Primary insomnia F51.01 and Anxiety F41. 9 [facility] [id number] [place] [address] Jul, Primary insomnia F51.01 ; Neuropathy G62 .9 and Encounter for Medicare annual wellness exam Z00.00 [facility] [id number] [place] [address] Jun, Neuropathy G62.9 and Encounter for Medic are annual wellness exam Z00.00 [facility] [id number] [place] [address] 18 Jun, 2019 Primary insomnia F51.01 [facility] [id number] [place] [address] Jun, Primary insomnia F51.01 ; Encounter for Medicare annual wellness exam Z00.00 and Neuropathy G62.9 [facility] [id number] [place] [address] Jun, Malignant neoplasm of colon, unspecified part of colon C18.9 and Chronic fatigue, unspecified R53.82 [facility] [id number] [place] [address] May, Neuropathy G62.9 and Encounter for Medic are annual wellness exam Z00.00 [facility] [id number] [place] [address] 15 May, 2019 Primary insomnia F51.01 [facility] [id number] [place] [address] May, Neuropathy G62.9 and Anxiety F41.9 [facility] [id number] [place] [address] Apr, Encounter for Medicare annual wellness e xam Z00.00 [facility] [address] [address] Apr, Neuropathy G62.9 and Encounter for Medic are annual wellness exam Z00.00 [facility] [address] [address] 26 Mar, 2019 Neuropathy G62.9 and Primary insomnia F5 1.01 [facility] [address] [address] 18 Mar, 2019 [facility] [address] [address] Feb, Primary insomnia F51.01 ; Neuropathy G62 .9 and Encounter for Medicare annual wellness exam Z00.00 [facility] [address] [address] Feb, Neuropathy G62.9 and Encounter for Medic are annual wellness exam Z00.00 [facility] [address] [address] Feb, Primary insomnia F51.01 and High risk me dication use Z79.899 [facility] [address] [address] Jan, [facility] [address] [address] Jan, Neuropathy G62.9 [facility] [address] [address] Dec, [facility] [address] [address] Dec, Encounter for Medicare annual wellness e xam Z00.00 and Neuropathy G62.9 [facility] [address] [address] November, [facility] [address] [address] November, Encounter for Medicare annual wellness e xam Z00.00 ; 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 ; Mood disorder F39 ; Chronic fatigue, unspecified R53.82 and Neuropathy G62.9 [facility] [address] [address] November, Neuropathy G62.9 [facility] [address] [address] Oct, Neuropathy G62.9 [facility] [address] [address] Oct, Hypertension, benign I10 and Anxiety F41 .9 [facility] [address] [address] Oct, [facility] [address] [address] Oct, [facility] [address] [address] Oct, [facility] [address] [address] Oct, Neuropathy G62.9 [facility] [address] [address] Sep, [facility] [address] [address] Sep, Neuropathy G62.9 [facility] [address] [address] Sep, [facility] [address] [address] Sep, H/O malignant carcinoid tumor of rectum Z85.040 and Primary insomnia F51.01 [facility] [address] [address] Aug, [facility] [address] [address] Aug, Neuropathy G62.9 [facility] [address] [address] Aug, [facility] [address] [address] Jul, Non-recurrent acute suppurative otitis m edia of left ear without spontaneous rupture of tympanic membrane H66.002 [facility] [address] [address] Jul, Neuropathy G62.9 [facility] [address] [address] Jun, [facility] [address] [address] Jun, [facility] [address] [address] Jun, Neuropathy G62.9 [facility] [address] [address] Jun, [facility] [address] [address] Jun, [facility] [address] [address] Jun, Lumbar neuritis M54.16 [facility] [address] [address] May, Neuropathy G62.9 [facility] [address] [address] May, [facility] [address] [address] May, Neuropathy G62.9 and Hypertension, benig n I10 [facility] [address] [address] Apr, Polyneuropathy G62.9 and Hypertension, b enign I10 [facility] [address] [address] 17 Mar, 2018 Chronic pain syndrome G89.4 and Hyperten shalini, benign I10 [facility] [address] [address] Mar, Polyneuropathy G62.9 and Hypertension, b enign I10 [facility] [id number] [place] [address] Feb, [facility] [id number] [place] [address] Feb, Hypertension, benign I10 [facility] [id number] [place] [address] 15 Feb, 2018 Hypertension, benign I10 ; Polyneuropath y G62.9 and Primary insomnia F51.01 [facility] [id number] [place] [address] 17 Jan, 2018 Hypertension, benign I10 and Polyneuropa thy G62.9 [facility] [id number] [place] [address] Jan, Hypertension, benign I10 and Neuropathy G62.9 [facility] [address] [address] Jan, [facility] [address] [address] Dec, Polyneuropathy G62.9 [facility] [address] [address] Dec, Mood disorder F39 [facility] [address] [address] November, Polyneuropathy G62.9 [facility] [id number] [place] [address] November, Medicare annual wellness visit, initial Z00.00 [facility] [address] [address] November, Mood disorder F39 [facility] [address] [address] Oct, Polyneuropathy G62.9 [facility] [id number] [place] [address] Oct, [facility] [address] [address] Oct, [facility] [address] [address] Oct, Mood disorder F39 ; Attention to urostom y Z43.6 ; Chronic pain syndrome G89.4 and Polyneuropathy G62.9 [facility] [address] [address] Sep, Polyneuropathy G62.9 [facility] [address] [address] Sep, [facility] [address] [address] Sep, Polyneuropathy G62.9 [facility] [address] [address] Aug, Polyneuropathy G62.9 [facility] [address] [address] Aug, Malignant neoplasm of colon, unspecified part of colon C18.9 and Polyneuropathy G62.9 [facility] [address] [address] Aug, Neuropathy G62.9 and Polyneuropathy G62. 9 [facility] [address] [address] Jul, Encounter for drug screening Z02.83 [facility] [address] [address] Jul, Polyneuropathy G62.9 [facility] [address] [address] Jul, [facility] [address] [address] Jul, Neuropathy G62.9 and Anxiety F41.9 [facility] [address] [address] Jul, [facility] [id number] [place] [address] Jul, [facility] [address] [address] Jul, [facility] [id number] [place] [address] Jul, Polyneuropathy G62.9 [facility] [address] [address] Jul, [facility] [id number] [place] [address] Jun, [facility] [address] [address] Jun, [facility] [id number] [place] [address] Jun, [facility] [address] [place] [address] 07 Jun, 2017 Encounter for dental examina tion Z01.20 [facility] [id number] [place] [address] Jun, Polyneuropathy G62.9 and Anxiety F41.9 [facility] [id number] [place] [address] Jun, [facility] [address] [facility] [id number] [address] May, Dental examination Z01.20 [facility] [id number] [place] [address] May, Polyneuropathy G62.9 [facility] [address] [address] Apr, Polyneuropathy G62.9 [facility] [id number] [place] [address] Apr, Polyneuropathy G62.9 [facility] [address] [address] Apr, Hypertension, benign I10 ; Polyneuropath y G62.9 and Anxiety F41.9 [facility] [address] [address] Apr, Primary insomnia F51.01 and Polyneuropat hy G62.9 [facility] [address] [address] Apr, Primary insomnia F51.01 and Polyneuropat hy G62.9 [facility] [address] [address] Mar, Primary insomnia F51.01 [facility] [address] [address] Mar, [facility] [address] [address] Mar, Polyneuropathy G62.9 [facility] [address] [address] Feb, Primary insomnia F51.01 [facility] [address] [address] Feb, [facility] [address] [address] Feb, [facility] [address] [address] Feb, Polyneuropathy G62.9 [facility] [address] [address] Feb, Primary insomnia F51.01 [facility] [address] [address] Jan, [facility] [address] [address] Jan, [facility] [address] [address] Dec, [facility] [address] [address] Dec, Primary insomnia F51.01 [facility] [address] [address] Dec, Primary insomnia F51.01 [facility] [address] [address] Dec, [facility] [address] [address] Dec, [facility] [address] [address] Dec, [facility] [address] [address] Dec, [facility] [address] [address] November, Primary insomnia F51.01 and Polyneuropat hy G62.9 [facility] [address] [address] November, [facility] [address] [address] November, Abdominal pain, left lower quadrant R10. 32 [facility] [address] [address] November, [facility] [address] [address] Oct, [facility] [address] [address] Oct, Abdominal pain, left lower quadrant R10. 32 ; H/O malignant carcinoid tumor of rectum Z85.040 and Neuropathy G62.9 [facility] [address] [address] Oct, [facility] [address] [address] Sep, [facility] [address] [id number] [id number] Sep, [facility] [id number] [place] [address] Sep, [facility] [address] [address] Aug, [facility] [address] [address] Aug, [facility] [address] [address] Aug, Abdominal pain, left lower quadrant R10. 32 ; Neuropathy G62.9 and Anxiety F41.9 [facility] [address] [place] [address] Jul, [facility] [address] [address] Jul, [facility] [id number] [place] [address] Jul, [facility] [address] [address] Jul, [facility] [address] [address] Jul, [facility] [address] [address] Jun, [facility] [address] [address] May, [facility] [address] [address] May, [facility] [address] [address] Apr, [facility] [address] [address] Apr, Muscle spasms of both lower extremities M62.838 and Cellulitis, unspecified cellulitis site L03.90 [facility] [address] [address] Apr, [facility] [id number] [place] [address] 23 Mar, 2016 Generalized abdominal pain R10.84 [facility] [id number] [place] [address] 20 Mar, 2016 [facility] [id number] [place] [address] 14 Mar, 2016 [facility] [address] [address] 14 Mar, 2016 [facility] [address] [address] 13 Mar, 2016 [facility] [address] [address] 12 Mar, 2016 [facility] [address] [address] 09 Mar, 2016 [facility] [address] [address] 06 Mar, 2016 [facility] [id number] [place] [address] 17 Feb, 2016 Other specified diseases of anus and rec wilton K62.89 [facility] [id number] [place] [address] Feb, [facility] [address] [address] Feb, Dizziness R42 [facility] [address] [address] Feb, [facility] [id number] [place] [address] Jan, Polyneuropathy G62.9 [facility] [id number] [place] [address] Jan, Other specified diseases of anus and rec wilton K62.89 [facility] [id number] [place] [address] Jan, [facility] [id number] [place] [address] Jan, [facility] [id number] [place] [address] Jan, [facility] [id number] [place] [address] Jan, Dizziness R42 [facility] [id number] [place] [address] Dec, [facility] [id number] [place] [address] Dec, [facility] [id number] [place] [address] Dec, [facility] [id number] [place] [address] Dec, Dizziness R42 [facility] [id number] [place] [address] November, [facility] [id number] [place] [address] Oct, [facility] [id number] [place] [address] Oct, [facility] [id number] [place] [address] Oct, [facility] [id number] [place] [address] Oct, [facility] [id number] [place] [address] Sep, [facility] [id number] [place] [address] Sep, Primary insomnia F51.01 [facility] [id number] [place] [address] Sep, Primary insomnia F51.01 [facility] [id number] [place] [address] Sep, [facility] [address] [address] Aug, [facility] [address] [address] Aug, [facility] [address] [address] Aug, Primary insomnia F51.01 ; Mood disorder F39 ; Nausea and vomiting, unspecified intactability, vomiting of unspecified type R11.2 and Diarrhea R19.7 [facility] [address] [address] Aug, [facility] [address] [address] Aug, Folliculitis L73.9 [facility] [address] [address] Aug, [facility] [address] [address] Aug, [facility] [address] [address] Jul, Folliculitis L73.9 [facility] [address] [address] Jul, [facility] [address] [address] Jun, Folliculitis L73.9 [facility] [address] [address] Jun, [facility] [address] [address] May, Polyneuropathy G62.9 [facility] [address] [address] May, Other specified diseases of anus and rec wilton K62.89 [facility] [address] [address] May, [facility] [id number] [place] [address] May, Primary insomnia F51.01 [facility] [id number] [place] [address] May, [facility] [id number] [place] [address] May, [facility] [address] [address] Apr, Other specified diseases of anus and rec wilton K62.89 ; Chronic fatigue R53.82 ; Urinary tract infection, site not specified N39.0 and Enterococcus as the cause of diseases classified elsewhere B95.2 [facility] [id number] [place] [address] Apr, [facility] [id number] [place] [address] Apr, [facility] [address] [address] Apr, Unspecified inflammatory and toxic neuro carol 357.9 [facility] [id number] [place] [address] Apr, [facility] [id number] [place] [address] Mar, [facility] [id number] [place] [address] Mar, [facility] [id number] [place] [address] 17 Mar, 2015 [facility] [id number] [place] [address] 14 Mar, 2015 Unspecified inflammatory and toxic neuro carol 357.9 [facility] [id number] [place] [address] 12 Mar, 2015 [facility] [address] [address] 11 Mar, 2015 [facility] [address] [id number] [place] [address] 11 Mar, 2015 [facility] [address] [id number] [place] [address] Mar, [facility] [address] [id number] [place] [address] Feb, [facility] [id number] [place] [address] Feb, [facility] [id number] [place] [address] Feb, [facility] [address] [id number] [place] [address] Jan, [facility] [id number] [place] [address] Jan, Nausea 787.02 and Neuropathy 355.9 [facility] [id number] [place] [address] Jan, [facility] [id number] [place] [address] Jan, [facility] [id number] [place] [address] Jan, [facility] [address] [id number] [place] [id number] Jan, Dental examination V72.2 [facility] [id number] [place] [address] Jan, [facility] [id number] [place] [address] Dec, [facility] [id number] [place] [address] Dec, [facility] [id number] [place] [address] Dec, Neuropathy 355.9 [facility] [id number] [place] [address] November, [facility] [id number] [place] [address] November, [facility] [address] [id number] [place] [address] November, [facility] [address] [id number] [place] [address] Oct, [facility] [address] [id number] [place] [address] Oct, [facility] [address] [id number] [place] [address] Sep, [facility] [address] [id number] [place] [address] Sep, [facility] [address] [id number] [place] [address] Sep, [facility] [address] [id number] [place] [address] Sep, [facility] [address] [id number] [place] [address] Sep, [facility] [address] [id number] [place] [address] Sep, [facility] [address] [id number] [place] [address] Sep, [facility] [address] [id number] [place] [address] Sep, [facility] [address] [id number] [place] [address] Aug, [facility] [address] [id number] [place] [address] Aug, [facility] [address] [id number] [place] [address] Aug, [facility] [address] [id number] [place] [address] Aug, [facility] [address] [id number] [place] [address] Aug, [facility] [address] [id number] [place] [address] Aug, 2014 [facility] [address] [id number] [place] [address] Aug, 2014 [facility] [address] [id number] [place] [address] Aug, 2014 [facility] [address] [id number] [place] [address] Jul, [facility] [address] [id number] [place] [address] Jul, [facility] [address] [id number] [place] [address] Jun, [facility] [address] [id number] [place] [address] Jun, [facility] [address] [id number] [place] [address] Jun, [facility] [address] [id number] [place] [address] Jun, [facility] [address] [id number] [place] [address] Jun, [facility] [address] [id number] [place] [address] Jun, [facility] [address] [id number] [place] [address] Jun, [facility] [address] [id number] [place] [address] Jun, [facility] [address] [id number] [place] [address] Jun, [facility] [address] [id number] [place] [address] Jun, [facility] [address] [id number] [place] [address] Jun, [facility] [address] [id number] [place] [address] May, [facility] [address] [id number] [place] [address] May, [facility] [address] [id number] [place] [address] May, [facility] [address] [id number] [place] [address] May, [facility] [address] [id number] [place] [address] May, [facility] [address] [id number] [place] [address] May, [facility] [address] [id number] [place] [address] May, [facility] [address] [id number] [place] [address] May, [facility] [address] [id number] [place] [address] May, [facility] [address] [id number] [place] [address] Apr, [facility] [address] [id number] [place] [address] Apr, [facility] [address] [id number] [place] [address] Apr, [facility] [address] [id number] [place] [address] Apr, [facility] [address] [id number] [place] [address] Apr, [facility] [address] [id number] [place] [address] Mar, [facility] [address] [id number] [place] [address] Mar, [facility] [address] [id number] [place] [address] Feb, [facility] [address] [id number] [facility] [place] [address] Feb, [facility] [address] [id number] [facility] [place] [address] Feb, [facility] [address] [id number] [facility] [place] [address] Feb, [facility] [address] [id number] [facility] [place] [address] Feb, [facility] [address] [id number] [facility] [place] [address] Feb, [facility] [address] [id number] [place] [address] Jan, [facility] [address] [id number] [place] [address] Jan, [facility] [address] [id number] [place] [address] Jan, [facility] [address] [id number] [facility] [place] [address] Jan, [facility] [address] [id number] [place] [address] Jan, [facility] [address] [id number] [place] [address] Jan, [facility] [address] [id number] [place] [address] Jan, [facility] [address] [id number] [place] [address] Jan, [facility] [address] [id number] [place] [address] Jan, [facility] [address] [id number] [place] [address] Jan, [facility] [address] [id number] [place] [address] Jan, [facility] [address] [id number] [place] [address] Dec, [facility] [address] [id number] [facility] [place] [address] Dec, [facility] [address] [id number] [facility] [place] [address] Dec, [facility] [address] [id number] [facility] [place] [address] Dec, [facility] [address] [id number] [facility] [place] [address] Dec, [facility] [address] [id number] [facility] [place] [address] Dec, [facility] [address] [id number] [facility] [place] [address] November, [facility] [address] [id number] [place] [address] November, [facility] [address] [id number] [facility] [place] [address] November, [facility] [address] [id number] [place] [address] November, [facility] [address] [id number] [place] [address] November, [facility] [address] [id number] [place] [address] November, [facility] [address] [id number] [place] [address] Oct, [facility] [address] [id number] [facility] [place] [address] Oct, [facility] [address] [id number] [place] [address] Oct, [facility] [address] [id number] [place] [address] Oct, [facility] [address] [id number] [facility] [place] [address] Sep, [facility] [address] [id number] [place] [address] Sep, [facility] [address] [id number] [place] [address] Sep, [facility] [address] [id number] [place] [address] Sep, [facility] [address] [id number] [place] [address] Sep, [facility] [address] [id number] [place] [address] Aug, [facility] [address] [id number] [place] [address] Aug, [facility] [address] [id number] [place] [address] Aug, [facility] [address] [id number] [place] [address] Aug, [facility] [address] [id number] [place] [address] Aug, [facility] [address] [place] [id number] May, [facility] [address] [id number] [place] [address] May, [facility] [address] [id number] [place] [address] May, [facility] [address] [id number] [place] [address] May, [facility] [address] [id number] [place] [address] May, [facility] [id number] [place] [address] Apr, [facility] [address] [id number] [place] [address] Apr, [facility] [address] [id number] [place] [address] Apr, [facility] [address] [id number] [place] [address] Apr, [facility] [address] [id number] [place] [address] Apr, [facility] [address] [id number] [place] [address] Apr, [facility] [address] [id number] [place] [address] Apr, [facility] [address] [id number] [place] [address] Mar, [facility] [address] [id number] [place] [address] Mar, [facility] [address] [id number] [place] [address] Mar, [facility] [address] [id number] [place] [address] Mar, [facility] [address] [id number] [place] [address] Mar, [facility] [address] [id number] [place] [address] Mar, [facility] [address] [id number] [place] [address] Feb, [facility] [address] [id number] [place] [address] Feb, [facility] [address] [id number] [place] [address] Feb, [facility] [address] [id number] [place] [address] Feb, [facility] [address] [id number] [place] [address] Feb, [facility] [address] [id number] [place] [address] Feb, [facility] [address] [id number] [place] [address] Jan, [facility] [address] [id number] [place] [address] Dec, [facility] [address] [id number] [place] [address] Dec, [facility] [address] [id number] [place] [address] Dec, [facility] [address] [id number] [place] [address] Dec, [facility] [address] [id number] [facility] [place] [address] Dec, [facility] [address] [id number] [place] [address] Dec, [facility] [address] [id number] [place] [address] Dec, [facility] [address] [id number] [place] [address] Dec, [facility] [address] [id number] [place] [address] Dec, [facility] [address] [id number] [place] [address] November, [facility] [address] [id number] [place] [address] November, [facility] [address] [id number] [place] [address] Oct, [facility] [address] [id number] [place] [address] Sep, [facility] [address] [id number] [place] [address] Sep, [facility] [address] [id number] [place] [address] 15 Sep, 2012 [facility] [address] [id number] [place] [address] Sep, [facility] [address] [id number] [place] [address] Aug, [facility] [address] [id number] [place] [address] Aug, [facility] [id number] [place] [address] Jul, [facility] [id number] [place] [address] Jul, [facility] [id number] [place] [address] Jul, [facility] [id number] [place] [address] Sep, [facility] [id number] [place] [address] Sep, [facility] [id number] [place] [address] Sep, IMMUNIZATIONS No Known Immunizations SOCIAL HISTORY [...] bowel obstruction, Dehydration -[facility] 01/01/17 Hospitalization History [facility]- UTI/Sepsis 01/18/2018 Hospitalization History [facility] - infection 4 days 05/2018
--- OUTSIDE RECORDS SUMMARY | 2020-01-14 23:26 | XMS REPORT ---
Author Author Melvin BENTLEY Organization [facility] Address [address] [place] [address] Care Team Providers Care Health Information Technologist Name Role Phone LINDA BENTLEY Unavailable PROBLEMS Type Condition ICD9-CM Code CIW58-KG Code Onset Dates Condition S tatus SNOMED Code Problem Incontinence of feces, unspecified fecal incontinence type R15.9 Active 64121593 Problem Primary insomnia F51.01 Active 193 503477 Problem Hydronephrosis with ureteral stricture, not else where classified N13.1 Active 34148397 Problem Chronic fatigue, unspecified R53.82 A ctive 847142963 Problem Hypertension, benign I10 Active 24401264 Problem Mood disorder F39 Active 619367 05 Problem Neuropathy G62.9 Active 302908157 Problem Chronic pain syndrome G89.4 Active 829252136 Problem Abdominal pain, left lower quadrant R10.32 Active 221712764 Problem 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 Active 805322821 Problem 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 835652733 Problem Anxiety F41.9 Active 66158213 Problem Polyneuropathy G62.9 Active 22188 000 Problem Malignant neoplasm of colon, unspecified part of colon C18.9 Active 765716485 Problem Attention to urostomy Z43.6 Active 819129127 ALLERGIES No Information ENCOUNTERS Encounter Location Date Diagnosis [facility] [id number] [place] [address] Aug, [facility] [address] [place] [address] Aug, Anxiety F41.9 ; Neuropathy G62.9 and Enc ounter for Medicare annual wellness exam Z00.00 [facility] [id number] [place] [address] Jul, [address] [place] [address] Jul, Primary insomnia F51.01 and Anxiety F41. 9 [facility] [address] [address] Jul, Primary insomnia F51.01 ; Neuropathy G62 .9 and Encounter for Medicare annual wellness exam Z00.00 [facility] [address] [address] Jun, Neuropathy G62.9 and Encounter for Medic are annual wellness exam Z00.00 [place] [address] [address] 18 Jun, 2019 Primary insomnia F51.01 [place] [address] [address] Jun, Primary insomnia F51.01 ; Encounter for Medicare annual wellness exam Z00.00 and Neuropathy G62.9 [place] [address] [address] Jun, Malignant neoplasm of colon, unspecified part of colon C18.9 and Chronic fatigue, unspecified R53.82 [facility] [facility] [address] [address] May, Neuropathy G62.9 and Encounter for Medic are annual wellness exam Z00.00 [place] [address] [address] 15 May, 2019 Primary insomnia F51.01 [place] [address] [address] May, Neuropathy G62.9 and Anxiety F41.9 [facility] [facility] [address] [address] Apr, Encounter for Medicare annual wellness e xam Z00.00 [place] [address] [address] Apr, Neuropathy G62.9 and Encounter for Medic are annual wellness exam Z00.00 [place] [address] [address] Mar, Neuropathy G62.9 and Primary insomnia F5 1.01 [facility] [id number] [place] [address] 18 Mar, 2019 [facility] [address] [address] Feb, Primary insomnia F51.01 ; Neuropathy G62 .9 and Encounter for Medicare annual wellness exam Z00.00 [facility] [address] [address] Feb, Neuropathy G62.9 and Encounter for Medic [facility] annual wellness exam Z00.00 [address] [address] [address] Feb, Primary insomnia F51.01 and High risk me dication use Z79.899 [place] [address] [address] Jan, [facility] [address] [address] Jan, Neuropathy G62.9 [facility] [address] [address] Dec, [facility] [address] [address] Dec, Encounter for Medicare annual wellness e xam Z00.00 and Neuropathy G62.9 [facility] [address] [address] November, [facility] [address] [address] November, Encounter for Medicare annual wellness e xam Z00.00 ; 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 ; Mood disorder F39 ; Chronic fatigue, unspecified R53.82 and Neuropathy G62.9 [facility] [id number] [place] [address] November, Neuropathy G62.9 [facility] [address] [address] Oct, Neuropathy G62.9 [facility] [address] [address] Oct, Hypertension, benign I10 and Anxiety F41 .9 [facility] [address] [address] Oct, [facility] [address] [address] Oct, [facility] [address] [address] Oct, [facility] [address] [address] Oct, Neuropathy G62.9 [facility] [address] [address] Sep, [facility] [address] [address] Sep, Neuropathy G62.9 [facility] [address] [address] Sep, [facility] [address] [address] Sep, H/O malignant carcinoid tumor of rectum Z85.040 and Primary insomnia F51.01 [facility] [address] [address] Aug, [facility] [address] [address] Aug, Neuropathy G62.9 [facility] [address] [address] Aug, [facility] [address] [address] Jul, Non-recurrent acute suppurative otitis m edia of left ear without spontaneous rupture of tympanic membrane H66.002 [facility] [address] [address] Jul, Neuropathy G62.9 [facility] [address] [address] Jun, [facility] [address] [address] Jun, [facility] [address] [address] Jun, Neuropathy G62.9 [facility] [address] [address] Jun, [facility] [address] [address] Jun, [facility] [address] [address] Jun, Lumbar neuritis M54.16 [place] [address] [address] May, Neuropathy G62.9 [facility] [address] [address] May, [facility] [address] [address] May, Neuropathy G62.9 and Hypertension, jet n I10 [place] [address] [address] Apr, Polyneuropathy G62.9 and Hypertension, b enign I10 [facility] [address] [address] 17 Mar, 2018 Chronic pain syndrome G89.4 and Hyperten shalini, benign I10 [facility] [address] [address] Mar, Polyneuropathy G62.9 and Hypertension, b enign I10 [facility] [address] [address] Feb, [facility] [address] [address] 16 Feb, 2018 Hypertension, benign I10 [facility] [address] [address] 15 Feb, 2018 Hypertension, benign I10 ; Polyneuropath y G62.9 and Primary insomnia F51.01 [facility] [address] [address] 17 Jan, 2018 Hypertension, benign I10 and Polyneuropa thy G62.9 [facility] [address] [address] Jan, Hypertension, benign I10 and Neuropathy G62.9 [facility] [address] [address] Jan, [facility] [address] [address] Dec, Polyneuropathy G62.9 [facility] [address] [address] Dec, Mood disorder F39 [facility] [address] [address] November, Polyneuropathy G62.9 [facility] [address] [address] November, Medicare annual wellness visit, initial Z00.00 [facility] [address] [address] November, Mood disorder F39 [facility] [address] [address] Oct, Polyneuropathy G62.9 [facility] [address] [address] Oct, [facility] [address] [address] Oct, [facility] [address] [address] Oct, Mood disorder F39 ; Attention to urostom y Z43.6 ; Chronic pain syndrome G89.4 and Polyneuropathy G62.9 [facility] [address] [address] Sep, Polyneuropathy G62.9 [facility] [address] [address] Sep, [facility] [address] [address] Sep, Polyneuropathy G62.9 [facility] [address] [address] Aug, Polyneuropathy G62.9 [place] [address] [address] Aug, Malignant neoplasm of colon, unspecified part of colon C18.9 and Polyneuropathy G62.9 [place] [address] [address] Aug, Neuropathy G62.9 and Polyneuropathy G62. 9 [place] [address] [address] Jul, Encounter for drug screening Z02.83 [place] [address] [address] Jul, Polyneuropathy G62.9 [place] [address] [address] Jul, [place] [address] [address] Jul, Neuropathy G62.9 and Anxiety F41.9 [place] [address] [address] Jul, [place] [address] [address] Jul, [place] [address] [address] Jul, [facility] [address] [address] Jul, Polyneuropathy G62.9 [facility] [address] [address] Jul, [facility] [address] [address] Jun, [facility] [address] [address] Jun, [facility] [address] [address] Jun, [facility] [address] [facility] [address] Jun, Encounter for dental examina tion Z01.20 [facility] [address] [address] Jun, Polyneuropathy G62.9 and Anxiety F41.9 [facility] [address] [address] Jun, [facility] [address] [facility] [address] May, Dental examination Z01.20 [facility] [address] [address] May, Polyneuropathy G62.9 [facility] [address] [address] Apr, Polyneuropathy G62.9 [facility] [address] [address] Apr, Polyneuropathy G62.9 [facility] [address] [address] Apr, Hypertension, benign I10 ; Polyneuropath y G62.9 and Anxiety F41.9 [facility] [address] [address] Apr, Primary insomnia F51.01 and Polyneuropat hy G62.9 [facility] [address] [facility] [place] [address] Apr, Primary insomnia F51.01 and Polyneuropat hy G62.9 [facility] [id number] [place] [address] Mar, Primary insomnia F51.01 [facility] [id number] [place] [address] Mar, [facility] [address] [address] Mar, Polyneuropathy G62.9 [facility] [address] [address] Feb, Primary insomnia F51.01 [facility] [address] [address] Feb, [facility] [address] [address] Feb, [facility] [address] [address] Feb, Polyneuropathy G62.9 [facility] [id number] [place] [address] Feb, Primary insomnia F51.01 [facility] [address] [address] Jan, [facility] [address] [address] Jan, [facility] [address] [address] Dec, [facility] [address] [address] Dec, Primary insomnia F51.01 [facility] [address] [address] Dec, Primary insomnia F51.01 [facility] [id number] [place] [address] Dec, [facility] [address] [address] Dec, [facility] [id number] [place] [address] Dec, [facility] [address] [address] Dec, [facility] [address] [address] November, Primary insomnia F51.01 and Polyneuropat hy G62.9 [facility] [id number] [place] [address] November, [facility] [address] [address] November, Abdominal pain, left lower quadrant R10. 32 [facility] [id number] [place] [address] November, [facility] [address] [address] Oct, [facility] [address] [address] Oct, Abdominal pain, left lower quadrant R10. 32 ; H/O malignant carcinoid tumor of rectum Z85.040 and Neuropathy G62.9 [facility] [id number] [place] [address] Oct, [facility] [id number] [place] [address] Sep, [facility] [address] [id number] [id number] Sep, [facility] [address] [id number] [place] [address] Sep, [facility] [id number] [place] [address] Aug, [facility] [address] [address] Aug, [facility] [address] [address] Aug, Abdominal pain, left lower quadrant R10. 32 ; Neuropathy G62.9 and Anxiety F41.9 [facility] [address] [place] [address] Jul, [facility] [address] [address] Jul, [facility] [address] [facility] [id number] [place] [address] Jul, [facility] [address] [address] Jul, [facility] [address] [address] Jul, [facility] [address] [address] Jun, [facility] [address] [address] May, [facility] [address] [address] May, [facility] [address] [address] Apr, [facility] [address] [address] Apr, Muscle spasms of both lower extremities M62.838 and Cellulitis, unspecified cellulitis site L03.90 [facility] [address] [address] Apr, [facility] [address] [address] Mar, Generalized abdominal pain R10.84 [facility] [address] [address] 20 Mar, 2015 [facility] [address] [id number] [place] [address] 14 Mar, 2016 [facility] [id number] [place] [address] 14 Mar, 2016 [facility] [id number] [place] [address] 13 Mar, 2016 [facility] [id number] [place] [address] 12 Mar, 2016 [facility] [id number] [place] [address] 09 Mar, 2016 [facility] [id number] [place] [address] 06 Mar, 2016 [facility] [id number] [place] [address] 17 Feb, 2016 Other specified diseases of anus and rec wilton K62.89 [facility] [id number] [place] [address] 15 Feb, 2016 [facility] [id number] [place] [address] Feb, Dizziness R42 [facility] [id number] [place] [address] Feb, [facility] [id number] [place] [address] Jan, Polyneuropathy G62.9 [facility] [id number] [place] [address] Jan, Other specified diseases of anus and rec wilton K62.89 [facility] [id number] [place] [address] Jan, [facility] [address] [facility] [id number] [address] [place] [address] Jan, [facility] [id number] [place] [address] Jan, [facility] [address] [id number] [place] [address] Jan, [facility]izziness R42 [facility] [address] [id number] [place] [address] Dec, [facility] [address] [id number] [place] [address] Dec, [facility] [id number] [place] [address] Dec, [facility] [address] [id number] [place] [address] Dec, Dizziness R42 [facility] [id number] [place] [address] November, [facility] [id number] [place] [address] Oct, [facility] [id number] [place] [address] Oct, [facility] [address] [id number] [place] [address] Oct, [facility] [id number] [place] [address] Oct, [facility] [address] [id number] [place] [address] Sep, [facility] [id number] [place] [address] Sep, Primary insomnia F51.01 [facility] [address] [id number] [place] [address] Sep, Primary insomnia F51.01 [facility] [id number] [place] [address] Sep, [facility] [id number] [place] [address] Aug, [facility] [id number] [place] [address] Aug, [facility] [address] [address] 15 Aug, 2015 Primary insomnia F51.01 ; Mood disorder F39 ; Nausea and vomiting, unspecified intactability, vomiting of unspecified type R11.2 and Diarrhea R19.7 [facility] [address] [address] 15 Aug, 2015 [facility] [address] [address] Aug, Folliculitis L73.9 [facility] [address] [address] Aug, [facility] [address] [address] Aug, [facility] [address] [address] Jul, Folliculitis L73.9 [facility] [address] [address] Jul, [facility] [address] [address] Jun, Folliculitis L73.9 [facility] [address] [address] Jun, [facility] [address] [address] May, Polyneuropathy G62.9 [facility] [address] [address] May, Other specified diseases of anus and rec wilton K62.89 [facility] [address] [address] May, [facility] [address] [address] May, Primary insomnia F51.01 [facility] [address] [address] May, [facility] [id number] [place] [address] May, [facility] [id number] [place] [address] Apr, Other specified diseases of anus and rec wilton K62.89 ; Chronic fatigue R53.82 ; Urinary tract infection, site not specified N39.0 and Enterococcus as the cause of diseases classified elsewhere B95.2 [facility] [id number] [place] [address] 16 Apr, 2015 [facility] [id number] [place] [address] 15 Apr, 2015 [facility] [address] [address] Apr, Unspecified inflammatory and toxic neuro carol 357.9 [facility] [id number] [place] [address] 05 Apr, 2015 [facility] [id number] [place] [address] 26 Mar, 2015 [facility] [id number] [place] [address] 23 Mar, 2015 [facility] [id number] [place] [address] 17 Mar, 2015 [facility] [address] [address] 14 Mar, 2015 Unspecified inflammatory and toxic neuro carol 357.9 [facility] [id number] [place] [address] 12 Mar, 2015 [facility] [id number] [place] [address] 11 Mar, 2015 [facility] [id number] [place] [address] 11 Mar, 2015 [facility] [id number] [place] [address] 10 Mar, 2015 [facility] [id number] [place] [address] Feb, [facility] [id number] [place] [address] Feb, [facility] [id number] [place] [address] Feb, [facility] [id number] [place] [address] Jan, [facility] [id number] [place] [address] Jan, Nausea 787.02 and Neuropathy 355.9 [facility] [id number] [place] [address] Jan, [facility] [address] [id number] [place] [address] Jan, [facility] [address] [id number] [place] [address] Jan, [facility] [address] [id number] [place] [id number] Jan, Dental examination V72.2 [facility] [address] [id number] [place] [address] Jan, [facility] [address] [id number] [place] [address] Dec, [facility] [address] [id number] [place] [address] Dec, [facility] [address] [id number] [place] [address] Dec, Neuropathy 355.9 [facility] [id number] [place] [address] November, [facility] [id number] [place] [address] November, [facility] [address] [id number] [place] [address] November, [facility] [address] [id number] [place] [address] 14 Oct, 2014 [facility] [address] [id number] [place] [address] Oct, [facility] [address] [id number] [place] [address] Sep, [facility] [address] [id number] [place] [address] Sep, [facility] [address] [id number] [place] [address] Sep, [facility] [address] [id number] [place] [address] Sep, [facility] [address] [id number] [place] [address] Sep, [facility] [address] [id number] [place] [address] Sep, [facility] [address] [id number] [place] [address] Sep, [facility] [address] [id number] [place] [address] Sep, [facility] [address] [id number] [place] [address] Aug, 2014 [facility] [address] [id number] [place] [address] Aug, 2014 [facility] [address] [id number] [place] [address] Aug, 2014 [facility] [address] [id number] [place] [address] Aug, 2014 [facility] [address] [id number] [place] [address] Aug, [facility] [address] [id number] [place] [address] Aug, 2014 [facility] [address] [id number] [place] [address] Aug, [facility] [address] [id number] [place] [address] Aug, [facility] [place] [facility] [address] [id number] [place] [address] Jul, [facility] [place] [facility] [address] [id number] [place] [address] Jul, [facility] [place] [facility] [address] [id number] [place] [address] Jun, [facility] [place] [facility] [address] [id number] [place] [address] Jun, [facility] [place] [facility] [address] [id number] [place] [address] Jun, [facility] [place] [facility] [address] [id number] [place] [address] Jun, [facility] [place] [facility] [address] [id number] [place] [address] Jun, [facility] [place] [facility] [address] [id number] [place] [address] Jun, [facility] [place] [facility] [address] [id number] [place] [address] Jun, [facility] [place] [facility] [address] [id number] [place] [address] Jun, [facility] [place] [facility] [address] [id number] [place] [address] Jun, [facility] [place] [facility] [address] [id number] [place] [address] Jun, [facility] [place] [facility] [address] [id number] [place] [address] Jun, [facility] [place] [facility] [address] [id number] [place] [address] May, [facility] [place] [facility] [address] [id number] [place] [address] May, [facility] [place] [facility] [address] [id number] [place] [address] May, [facility] [place] [facility] [address] [id number] [place] [address] May, [facility] [place] [facility] [address] [id number] [place] [address] May, [facility] [place] [facility] [address] [id number] [place] [address] May, [facility] [place] [facility] [address] [id number] [place] [address] May, [facility] [place] [facility] [address] [id number] [place] [address] May, [facility] [place] [facility] [address] [id number] [place] [address] May, [facility] [place] [facility] [address] [id number] [place] [address] Apr, [facility] [place] [facility] [address] [id number] [place] [address] Apr, [facility] [place] [facility] [address] [id number] [place] [address] Apr, [facility] [place] [facility] [address] [id number] [place] [address] Apr, [facility] [place] [facility] [address] [id number] [place] [address] Apr, [facility] [place] [facility] [address] [id number] [place] [address] Mar, [facility] [place] [facility] [address] [id number] [place] [address] Mar, [facility] [place] [facility] [address] [id number] [place] [address] Feb, [facility] [place] [facility] [address] [id number] [place] [address] Feb, [facility] [place] [facility] [address] [id number] [place] [address] Feb, [facility] [place] [facility] [address] [id number] [place] [address] Feb, [facility] [place] [facility] [address] [facility] [id number] [facility] [place] [address] Feb, [facility] [place] [facility] [address] [facility] [id number] [place] [address] Feb, [facility] [place] [facility] [address] [id number] [facility] [place] [address] Jan, [facility] [place] [facility] [address] [facility] [id number] [facility] [place] [address] Jan, [facility] [place] [facility] [address] [id number] [place] [address] Jan, [facility] [place] [facility] [address] [facility] [id number] [place] [address] Jan, [facility] [place] [facility] [address] [id number] [place] [address] Jan, [facility] [place] [facility] [address] [facility] [id number] [place] [address] Jan, [facility] [place] [facility] [address] [facility] [id number] [place] [address] Jan, [facility] [place] [facility] [address] [facility] [id number] [place] [address] Jan, [facility] [place] [facility] [address] [facility] [id number] [place] [address] Jan, [facility] [place] [facility] [address] [facility] [id number] [place] [address] Jan, [facility] [place] [facility] [address] [id number] [place] [address] Jan, [facility] [place] [facility] [address] [facility] [id number] [place] [address] Dec, [facility] [place] [facility] [address] [facility] [id number] [place] [address] Dec, [facility] [place] [facility] [address] [facility] [id number] [facility] [place] [address] Dec, [facility] [place] [facility] [address] [facility] [id number] [facility] [place] [address] Dec, [facility] [place] [facility] [address] [facility] [id number] [facility] [place] [address] Dec, [facility] [place] [facility] [address] [id number] [place] [address] Dec, [facility] [place] [facility] [address] [id number] [facility] [place] [address] November, [facility] [place] [facility] [address] [facility] [id number] [place] [address] November, [facility] [place] [facility] [address] [id number] [place] [address] November, [facility] [place] [facility] [address] [id number] [place] [address] November, [facility] [place] [facility] [address] [id number] [place] [address] November, [facility] [place] [facility] [address] [facility] [id number] [facility] [place] [address] November, [facility] [place] [facility] [address] [id number] [place] [address] Oct, [facility] [place] [facility] [address] [id number] [place] [address] Oct, [facility] [place] [facility] [address] [id number] [facility] [place] [address] Oct, [facility] [place] [facility] [address] [facility] [id number] [facility] [place] [address] 16 Oct, 2013 [facility] [place] [facility] [address] [id number] [facility] [place] [address] 17 Sep, 2013 [facility] [place] [facility] [address] [id number] [facility] [place] [address] 17 Sep, 2013 [facility] [place] [facility] [address] [id number] [facility] [place] [address] Sep, [facility] [place] [facility] [address] [facility] [id number] [place] [address] Sep, [facility] [place] [facility] [address] [facility] [id number] [place] [address] Sep, [facility] [place] [facility] [address] [facility] [id number] [place] [address] Aug, [facility] [place] [facility] [address] [id number] [place] [address] Aug, [facility] [place] [facility] [address] [id number] [place] [address] Aug, [facility] [place] [facility] [address] [id number] [place] [address] Aug, [facility] [place] [facility] [address] [id number] [place] [address] Aug, [facility] [address] [place] [id number] May, [facility] [place] [facility] [address] [id number] [place] [address] May, [facility] [place] [facility] [address] [id number] [place] [address] May, [facility] [place] [facility] [address] [id number] [place] [address] May, [facility] [place] [facility] [address] [id number] [place] [address] May, [facility] [place] [facility] [address] [id number] [place] [address] Apr, [facility] [place] [facility] [address] [id number] [place] [address] Apr, [facility] [place] [facility] [address] [id number] [place] [address] Apr, [facility] [place] [facility] [address] [id number] [place] [address] Apr, [facility] [place] [facility] [address] [id number] [place] [address] Apr, [facility] [place] [facility] [address] [id number] [facility] [place] [address] Apr, [facility] [place] [facility] [address] [facility] [id number] [facility] [place] [address] Apr, [facility] [place] [facility] [address] [id number] [place] [address] Mar, [facility] [place] [facility] [address] [id number] [facility] [place] [address] Mar, [facility] [place] [facility] [address] [facility] [id number] [facility] [place] [address] Mar, [facility] [place] [facility] [address] [id number] [place] [address] Mar, [facility] [place] [facility] [address] [id number] [place] [address] Mar, [facility] [place] [facility] [address] [id number] [place] [address] Mar, [facility] [place] [facility] [address] [id number] [place] [address] Feb, [facility] [place] [facility] [address] [id number] [place] [address] Feb, [facility] [place] [facility] [address] [id number] [place] [address] Feb, [facility] [place] [facility] [address] [id number] [place] [address] Feb, [facility] [place] [facility] [address] [id number] [place] [address] Feb, [facility] [place] [facility] [address] [id number] [place] [address] Feb, [facility] [place] [facility] [address] [id number] [place] [address] Jan, [facility] [place] [facility] [address] [id number] [place] [address] Dec, [facility] [place] [facility] [address] [id number] [place] [address] Dec, [facility] [place] [facility] [address] [facility] [id number] [facility] [place] [address] Dec, [facility] [place] [facility] [address] [id number] [place] [address] Dec, [facility] [place] [facility] [address] [id number] [place] [address] Dec, [facility] [place] [facility] [address] [id number] [place] [address] Dec, [facility] [place] [facility] [address] [facility] [id number] [facility] [place] [address] Dec, [facility] [place] [facility] [address] [id number] [place] [address] Dec, [facility] [place] [facility] [address] [id number] [place] [address] Dec, [facility] [place] [facility] [address] [id number] [place] [address] November, [facility] [place] [facility] [address] [id number] [place] [address] November, [facility] [place] [facility] [address] [id number] [place] [address] Oct, [facility] [place] [facility] [address] [id number] [place] [address] Sep, [facility] [place] [facility] [address] [id number] [place] [address] Sep, [facility] [place] [facility] [address] [facility] [id number] [place] [address] 15 Sep, 2012 [facility] [place] [facility] [address] [id number] [place] [address] Sep, [facility] [place] [facility] [address] [id number] [place] [address] Aug, [facility] [place] [facility] [address] [id number] [place] [address] 08 Aug, 2012 [facility] [address] [id number] [place] [address] Jul, [facility] [id number] [place] [address] Jul, [facility] [address] [id number] [place] [address] Jul, [facility] [address] [id number] [place] [address] Sep, [facility] [id number] [place] [address] Sep, [facility] [id number] [place] [address] Sep, IMMUNIZATIONS No Known Immunizations SOCIAL HISTORY [...] Dehydration -[facility] 01/01/17 Hospitalization History [facility]- UTI/Sepsis 01/18/2018 Hospitalization History [facility] - infection 4 days 05/2018
--- OUTSIDE RECORDS SUMMARY | 2020-01-14 23:26 | XMS REPORT ---
Author Author Melvin BENTLEY Organization [facility] Address [address] [place] [address] Care Team Providers Care Medical Manager Name Role Phone LINDA BENTLEY Unavailable PROBLEMS Type Condition ICD9-CM Code JPB41-MS Code Onset Dates Condition S tatus SNOMED Code Problem Incontinence of feces, unspecified fecal incontinence type R15.9 Active 18235075 Problem Primary insomnia F51.01 Active 193 984479 Problem Hydronephrosis with ureteral stricture, not else where classified N13.1 Active 79164752 Problem Chronic fatigue, unspecified R53.82 A ctive 612636348 Problem Hypertension, benign I10 Active 75954630 Problem Mood disorder F39 Active 343317 05 Problem Neuropathy G62.9 Active 619246188 Problem Chronic pain syndrome G89.4 Active 193726200 Problem Abdominal pain, left lower quadrant R10.32 Active 411313164 Problem 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 Active 302774966 Problem 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 266766247 Problem Anxiety F41.9 Active 73447523 Problem Polyneuropathy G62.9 Active 10289 000 Problem Malignant neoplasm of colon, unspecified part of colon C18.9 Active 292912766 Problem Attention to urostomy Z43.6 Active 455461581 ALLERGIES No Information ENCOUNTERS Encounter Location Date Diagnosis [facility] [id number] [place] [address] Sep, [facility] [address] [place] [address] 10 Sep, 2019 Neuropathy G62.9 ; Anxiety F41.9 and Enc ounter for Medicare annual wellness exam Z00.00 [facility] [facility] [id number] [place] [address] 12 Aug, 2019 Anxiety F41.9 ; Neuropathy G62.9 and Enc ounter for Medicare annual wellness exam Z00.00 [facility] [id number] [place] [address] Jul, [facility] [id number] [place] [address] Jul, Primary insomnia F51.01 and Anxiety F41. 9 [facility] [id number] [place] [address] Jul, Primary insomnia F51.01 ; Neuropathy G62 .9 and Encounter for Medicare annual wellness exam Z00.00 [facility] [id number] [place] [address] Jun, Neuropathy G62.9 and Encounter for Medic are annual wellness exam Z00.00 [facility] [id number] [place] [address] 18 Jun, 2019 Primary insomnia F51.01 [facility] [id number] [place] [address] Jun, Primary insomnia F51.01 ; Encounter for Medicare annual wellness exam Z00.00 and Neuropathy G62.9 [facility] [id number] [place] [address] Jun, Malignant neoplasm of colon, unspecified part of colon C18.9 and Chronic fatigue, unspecified R53.82 [facility] [id number] [place] [address] May, Neuropathy G62.9 and Encounter for Medic are annual wellness exam Z00.00 [facility] [id number] [place] [address] 15 May, 2019 Primary insomnia F51.01 [facility] [id number] [place] [address] May, Neuropathy G62.9 and Anxiety F41.9 [facility] [id number] [place] [address] Apr, Encounter for Medicare annual wellness e xam Z00.00 [facility] [address] [address] Apr, Neuropathy G62.9 and Encounter for Medic are annual wellness exam Z00.00 [facility] [address] [address] 26 Mar, 2019 Neuropathy G62.9 and Primary insomnia F5 1.01 [place] [address] [address] 18 Mar, 2019 [place] [address] [address] Feb, Primary insomnia F51.01 ; Neuropathy G62 .9 and Encounter for Medicare annual wellness exam Z00.00 [place] [address] [address] Feb, Neuropathy G62.9 and Encounter for Medic are annual wellness exam Z00.00 [place] [address] [address] Feb, Primary insomnia F51.01 and High risk me dication use Z79.899 [place] [address] [address] Jan, [facility] [address] [address] Jan, Neuropathy G62.9 [place] [address] [address] Dec, [place] [address] [address] Dec, Encounter for Medicare annual wellness e xam Z00.00 and Neuropathy G62.9 [place] [address] [address] November, [place] [address] [address] November, Encounter for Medicare annual wellness e xam Z00.00 ; 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 ; Mood disorder F39 ; Chronic fatigue, unspecified R53.82 and Neuropathy G62.9 [facility] [address] [address] November, Neuropathy G62.9 [facility] [address] [address] Oct, Neuropathy G62.9 [facility] [address] [address] Oct, Hypertension, benign I10 and Anxiety F41 .9 [facility] [address] [address] Oct, [facility] [address] [address] Oct, [facility] [address] [address] Oct, [facility] [address] [address] Oct, Neuropathy G62.9 [facility] [address] [address] Sep, [facility] [address] [address] Sep, Neuropathy G62.9 [facility] [address] [address] Sep, [facility] [address] [address] Sep, H/O malignant carcinoid tumor of rectum Z85.040 and Primary insomnia F51.01 [facility] [address] [address] Aug, [facility] [address] [address] Aug, Neuropathy G62.9 [facility] [address] [address] Aug, [facility] [address] [address] Jul, Non-recurrent acute suppurative otitis m edia of left ear without spontaneous rupture of tympanic membrane H66.002 [place] [address] [address] Jul, Neuropathy G62.9 [place] [address] [address] Jun, [place] [address] [address] Jun, [place] [address] [address] Jun, Neuropathy G62.9 [place] [address] [address] Jun, [place] [address] [address] Jun, [place] [address] [address] Jun, Lumbar neuritis M54.16 [place] [address] [address] May, Neuropathy G62.9 [place] [address] [address] May, [place] [address] [address] May, Neuropathy G62.9 and Hypertension, benig n I10 [place] [address] [address] Apr, Polyneuropathy G62.9 and Hypertension, b enign I10 [place] [address] [address] 17 Mar, 2018 Chronic pain syndrome G89.4 and Hyperten shalini, benign I10 [place] [address] [address] Mar, Polyneuropathy G62.9 and Hypertension, b enign I10 [facility] [id number] [place] [address] Feb, [facility] [id number] [place] [address] Feb, Hypertension, benign I10 [facility] [id number] [place] [address] 15 Feb, 2018 Hypertension, benign I10 ; Polyneuropath y G62.9 and Primary insomnia F51.01 [facility] [id number] [place] [address] 17 Jan, 2018 Hypertension, benign I10 and Polyneuropa thy G62.9 [facility] [id number] [place] [address] Jan, Hypertension, benign I10 and Neuropathy G62.9 [facility] [address] [address] Jan, [facility] [address] [address] Dec, Polyneuropathy G62.9 [facility] [address] [address] Dec, Mood disorder F39 [facility] [address] [address] November, Polyneuropathy G62.9 [facility] [id number] [place] [address] November, Medicare annual wellness visit, initial Z00.00 [facility] [address] [address] November, Mood disorder F39 [facility] [address] [address] Oct, Polyneuropathy G62.9 [facility] [id number] [place] [address] Oct, [facility] [address] [address] Oct, [facility] [address] [address] Oct, Mood disorder F39 ; Attention to urostom y Z43.6 ; Chronic pain syndrome G89.4 and Polyneuropathy G62.9 [facility] [address] [address] Sep, Polyneuropathy G62.9 [facility] [address] [address] Sep, [place] [address] [address] Sep, Polyneuropathy G62.9 [facility] [address] [address] Aug, Polyneuropathy G62.9 [place] [address] [address] Aug, Malignant neoplasm of colon, unspecified part of colon C18.9 and Polyneuropathy G62.9 [place] [address] [address] Aug, Neuropathy G62.9 and Polyneuropathy G62. 9 [facility] [address] [address] Jul, Encounter for drug screening Z02.83 [facility] [address] [address] Jul, Polyneuropathy G62.9 [facility] [address] [address] Jul, [facility] [address] [address] Jul, Neuropathy G62.9 and Anxiety F41.9 [facility] [address] [address] Jul, [place] [id number] [place] [address] Jul, [facility] [address] [address] Jul, [facility] [id number] [place] [address] Jul, Polyneuropathy G62.9 [facility] [address] [address] Jul, [facility] [id number] [place] [address] Jun, [facility] [address] [address] Jun, [facility] [id number] [place] [address] Jun, [facility] [address] [id number] [address] 07 Jun, 2017 Encounter for dental examina tion Z01.20 [facility] [id number] [place] [address] Jun, Polyneuropathy G62.9 and Anxiety F41.9 [facility] [id number] [place] [address] Jun, [facility] [address] [id number] [place] [address] May, Dental examination Z01.20 [facility] [id number] [place] [address] May, Polyneuropathy G62.9 [facility] [address] [address] Apr, Polyneuropathy G62.9 [facility] [id number] [place] [address] Apr, Polyneuropathy G62.9 [facility] [address] [address] Apr, Hypertension, benign I10 ; Polyneuropath y G62.9 and Anxiety F41.9 [facility] [address] [address] Apr, Primary insomnia F51.01 and Polyneuropat hy G62.9 [facility] [address] [address] Apr, Primary insomnia F51.01 and Polyneuropat hy G62.9 [facility] [address] [address] Mar, Primary insomnia F51.01 [facility] [address] [address] Mar, [facility] [address] [address] Mar, Polyneuropathy G62.9 [facility] [address] [address] Feb, Primary insomnia F51.01 [facility] [address] [address] Feb, [facility] [address] [address] Feb, [facility] [address] [address] Feb, Polyneuropathy G62.9 [facility] [address] [address] Feb, Primary insomnia F51.01 [facility] [address] [address] Jan, [facility] [address] [address] Jan, [facility] [address] [address] Dec, [facility] [address] [address] Dec, Primary insomnia F51.01 [facility] [address] [address] Dec, Primary insomnia F51.01 [facility] [address] [address] Dec, [facility] [address] [address] Dec, [facility] [address] [address] Dec, [facility] [address] [address] Dec, [facility] [address] [address] November, Primary insomnia F51.01 and Polyneuropat hy G62.9 [facility] [address] [address] November, [facility] [address] [address] November, Abdominal pain, left lower quadrant R10. 32 [facility] [address] [address] November, [facility] [address] [address] Oct, [facility] [address] [address] Oct, Abdominal pain, left lower quadrant R10. 32 ; H/O malignant carcinoid tumor of rectum Z85.040 and Neuropathy G62.9 [facility] [address] [address] Oct, [facility] [address] [address] Sep, [facility] [address] [id number] [id number] Sep, [facility] [id number] [place] [address] Sep, [facility] [address] [address] Aug, [facility] [address] [address] Aug, [facility] [address] [address] Aug, Abdominal pain, left lower quadrant R10. 32 ; Neuropathy G62.9 and Anxiety F41.9 [facility] [address] [place] [address] Jul, [facility] [address] [address] Jul, [facility] [address] [facility] [id number] [place] [address] Jul, [facility] [address] [address] Jul, [facility] [address] [address] Jul, [facility] [address] [address] Jun, [facility] [address] [address] May, [facility] [address] [address] May, [facility] [address] [address] Apr, [facility] [address] [address] Apr, Muscle spasms of both lower extremities M62.838 and Cellulitis, unspecified cellulitis site L03.90 [facility] [address] [address] Apr, [facility] [id number] [place] [address] 23 Mar, 2016 Generalized abdominal pain R10.84 [facility] [id number] [place] [address] 20 Mar, 2016 [facility] [id number] [place] [address] 14 Mar, 2016 [facility] [address] [address] 14 Mar, 2016 [facility] [address] [address] 13 Mar, 2016 [facility] [address] [address] 12 Mar, 2016 [facility] [address] [address] 09 Mar, 2016 [facility] [address] [address] 06 Mar, 2016 [facility] [id number] [place] [address] 17 Feb, 2016 Other specified diseases of anus and rec wilton K62.89 [facility] [id number] [place] [address] Feb, [facility] [address] [address] Feb, Dizziness R42 [facility] [address] [address] Feb, [facility] [id number] [place] [address] Jan, Polyneuropathy G62.9 [facility] [id number] [place] [address] Jan, Other specified diseases of anus and rec wilton K62.89 [facility] [id number] [place] [address] Jan, [facility] [address] [facility] [id number] [address] [place] [address] Jan, [facility] [id number] [place] [address] Jan, [facility] [id number] [place] [address] Jan, Dizziness R42 [facility] [id number] [place] [address] Dec, [facility] [id number] [place] [address] Dec, [facility] [id number] [place] [address] Dec, [facility] [id number] [place] [address] Dec, Dizziness R42 [facility] [id number] [place] [address] November, [facility] [id number] [place] [address] Oct, [facility] [id number] [place] [address] Oct, [facility] [id number] [place] [address] Oct, [facility] [id number] [place] [address] Oct, [facility] [id number] [place] [address] Sep, [facility] [id number] [place] [address] Sep, Primary insomnia F51.01 [facility] [id number] [place] [address] Sep, Primary insomnia F51.01 [facility] [id number] [place] [address] Sep, [facility] [address] [address] Aug, [facility] [address] [address] Aug, [facility] [address] [address] Aug, Primary insomnia F51.01 ; Mood disorder F39 ; Nausea and vomiting, unspecified intactability, vomiting of unspecified type R11.2 and Diarrhea R19.7 [facility] [address] [address] Aug, [facility] [address] [address] Aug, Folliculitis L73.9 [facility] [address] [address] Aug, [facility] [address] [address] Aug, [facility] [address] [address] Jul, Folliculitis L73.9 [facility] [address] [address] Jul, [facility] [address] [address] Jun, Folliculitis L73.9 [facility] [address] [address] Jun, [facility] [address] [address] May, Polyneuropathy G62.9 [facility] [address] [address] May, Other specified diseases of anus and rec wilton K62.89 [facility] [address] [address] May, [facility] [id number] [place] [address] May, Primary insomnia F51.01 [facility] [id number] [place] [address] May, [facility] [id number] [place] [address] May, [facility] [address] [address] Apr, Other specified diseases of anus and rec wilton K62.89 ; Chronic fatigue R53.82 ; Urinary tract infection, site not specified N39.0 and Enterococcus as the cause of diseases classified elsewhere B95.2 [facility] [id number] [place] [address] Apr, [facility] [id number] [place] [address] Apr, [facility] [address] [address] Apr, Unspecified inflammatory and toxic neuro carol 357.9 [facility] [id number] [place] [address] Apr, [facility] [id number] [place] [address] Mar, [facility] [id number] [place] [address] Mar, [facility] [id number] [place] [address] 17 Mar, 2015 [facility] [id number] [place] [address] 14 Mar, 2015 Unspecified inflammatory and toxic neuro carol 357.9 [facility] [id number] [place] [address] 12 Mar, 2015 [facility] [address] [address] 11 Mar, 2015 [facility] [address] [id number] [place] [address] 11 Mar, 2015 [facility] [address] [id number] [place] [address] Mar, [facility] [address] [id number] [place] [address] Feb, [facility] [id number] [place] [address] Feb, [facility] [id number] [place] [address] Feb, [facility] [address] [id number] [place] [address] Jan, [facility] [id number] [place] [address] Jan, Nausea 787.02 and Neuropathy 355.9 [facility] [id number] [place] [address] Jan, [facility] [id number] [place] [address] Jan, [facility] [id number] [place] [address] Jan, [facility] [address] [id number] [place] [id number] Jan, Dental examination V72.2 [facility] [id number] [place] [address] Jan, [facility] [id number] [place] [address] Dec, [facility] [id number] [place] [address] Dec, [facility] [id number] [place] [address] Dec, Neuropathy 355.9 [facility] [id number] [place] [address] November, [facility] [id number] [place] [address] November, [facility] [address] [facility] [id number] [place] [address] November, [facility] [address] [id number] [place] [address] Oct, [facility] [address] [id number] [place] [address] Oct, [facility] [address] [id number] [place] [address] Sep, [facility] [address] [id number] [place] [address] Sep, [facility] [address] [id number] [place] [address] Sep, [facility] [address] [id number] [place] [address] Sep, [facility] [address] [id number] [place] [address] Sep, [facility] [address] [id number] [place] [address] Sep, [facility] [address] [id number] [place] [address] Sep, [facility] [address] [id number] [place] [address] Sep, [facility] [address] [id number] [place] [address] Aug, [facility] [address] [id number] [place] [address] Aug, [facility] [address] [id number] [place] [address] Aug, [facility] [address] [id number] [place] [address] Aug, [facility] [address] [id number] [place] [address] Aug, [facility] [address] [id number] [place] [address] Aug, 2014 [facility] [address] [id number] [place] [address] Aug, 2014 [facility] [address] [id number] [place] [address] Aug, 2014 [facility] [address] [id number] [place] [address] Jul, [facility] [address] [id number] [place] [address] Jul, [facility] [address] [id number] [place] [address] Jun, [facility] [address] [id number] [place] [address] Jun, [facility] [address] [id number] [place] [address] Jun, [facility] [address] [id number] [place] [address] Jun, [facility] [address] [id number] [place] [address] Jun, [facility] [address] [id number] [place] [address] Jun, [facility] [address] [id number] [place] [address] Jun, [facility] [address] [id number] [place] [address] Jun, [facility] [address] [id number] [place] [address] Jun, [facility] [address] [id number] [place] [address] Jun, [facility] [address] [id number] [place] [address] Jun, [facility] [address] [id number] [place] [address] May, [facility] [address] [id number] [place] [address] May, [facility] [address] [id number] [place] [address] May, [facility] [address] [id number] [place] [address] May, [facility] [address] [id number] [place] [address] May, [facility] [address] [id number] [place] [address] May, [facility] [address] [id number] [place] [address] May, [facility] [address] [id number] [place] [address] May, [facility] [address] [id number] [place] [address] May, [facility] [address] [id number] [place] [address] Apr, [facility] [address] [id number] [place] [address] Apr, [facility] [address] [id number] [place] [address] Apr, [facility] [address] [id number] [place] [address] Apr, [facility] [address] [id number] [place] [address] Apr, [facility] [address] [id number] [place] [address] Mar, [facility] [address] [id number] [place] [address] Mar, [facility] [address] [id number] [place] [address] Feb, [facility] [address] [id number] [facility] [place] [address] Feb, [facility] [address] [id number] [facility] [place] [address] Feb, [facility] [address] [facility] [id number] [facility] [place] [address] Feb, [facility] [address] [facility] [id number] [facility] [place] [address] Feb, [facility] [address] [facility] [id number] [facility] [place] [address] Feb, [facility] [address] [id number] [place] [address] Jan, [facility] [address] [facility] [id number] [place] [address] Jan, [facility] [address] [id number] [place] [address] Jan, [facility] [address] [facility] [id number] [facility] [place] [address] Jan, [facility] [address] [id number] [place] [address] Jan, [facility] [address] [facility] [id number] [place] [address] Jan, [facility] [address] [id number] [place] [address] Jan, [facility] [address] [id number] [place] [address] Jan, [facility] [address] [facility] [id number] [place] [address] Jan, [facility] [address] [facility] [id number] [place] [address] Jan, [facility] [address] [facility] [id number] [place] [address] Jan, [facility] [address] [id number] [place] [address] Dec, [facility] [address] [id number] [facility] [place] [address] Dec, [facility] [address] [facility] [id number] [facility] [place] [address] Dec, [facility] [address] [facility] [id number] [facility] [place] [address] Dec, [facility] [address] [id number] [facility] [place] [address] Dec, [facility] [address] [facility] [id number] [facility] [place] [address] Dec, [facility] [address] [id number] [facility] [place] [address] November, [facility] [address] [id number] [place] [address] November, [facility] [address] [id number] [facility] [place] [address] November, [facility] [address] [facility] [id number] [place] [address] November, [facility] [address] [id number] [place] [address] November, [facility] [address] [id number] [place] [address] November, [facility] [address] [id number] [place] [address] Oct, [facility] [address] [facility] [id number] [facility] [place] [address] Oct, [facility] [address] [id number] [place] [address] Oct, [facility] [address] [facility] [id number] [place] [address] Oct, [facility] [address] [id number] [facility] [place] [address] Sep, [facility] [address] [id number] [place] [address] Sep, [facility] [address] [id number] [place] [address] Sep, [facility] [address] [id number] [place] [address] Sep, [facility] [address] [id number] [place] [address] Sep, [facility] [address] [id number] [place] [address] Aug, [facility] [address] [id number] [place] [address] Aug, [facility] [address] [id number] [place] [address] Aug, [facility] [address] [id number] [place] [address] Aug, [facility] [address] [id number] [place] [address] Aug, [facility] [address] [place] [id number] May, [facility] [address] [id number] [place] [address] May, [facility] [address] [id number] [place] [address] May, [facility] [address] [id number] [place] [address] May, [facility] [address] [id number] [place] [address] May, [facility] [id number] [place] [address] Apr, [facility] [address] [id number] [place] [address] Apr, [facility] [address] [id number] [place] [address] Apr, [facility] [address] [id number] [place] [address] Apr, [facility] [address] [facility] [id number] [place] [address] Apr, [facility] [address] [facility] [id number] [place] [address] Apr, [facility] [address] [id number] [place] [address] Apr, [facility] [address] [facility] [id number] [place] [address] Mar, [facility] [address] [id number] [place] [address] Mar, [facility] [address] [id number] [place] [address] Mar, [facility] [address] [id number] [place] [address] Mar, [facility] [address] [id number] [place] [address] Mar, [facility] [address] [id number] [place] [address] Mar, [facility] [address] [id number] [place] [address] Feb, [facility] [address] [id number] [place] [address] Feb, [facility] [address] [id number] [place] [address] Feb, [facility] [address] [facility] [id number] [place] [address] Feb, [facility] [address] [id number] [place] [address] Feb, [facility] [address] [id number] [place] [address] Feb, [facility] [address] [id number] [place] [address] Jan, [facility] [address] [facility] [id number] [place] [address] Dec, [facility] [address] [id number] [place] [address] Dec, [facility] [address] [id number] [place] [address] Dec, [facility] [address] [id number] [place] [address] Dec, [facility] [address] [facility] [id number] [facility] [place] [address] Dec, [facility] [address] [id number] [place] [address] Dec, [facility] [address] [id number] [place] [address] Dec, [facility] [address] [id number] [place] [address] Dec, [facility] [address] [id number] [place] [address] Dec, [facility] [address] [id number] [place] [address] November, [facility] [address] [id number] [place] [address] November, [facility] [address] [id number] [place] [address] Oct, [facility] [address] [id number] [place] [address] Sep, [facility] [address] [id number] [place] [address] Sep, [facility] [address] [id number] [place] [address] 15 Sep, 2012 [facility] [address] [id number] [place] [address] Sep, [facility] [address] [id number] [place] [address] Aug, [facility] [id number] [place] [address] Aug, [facility] [id number] [place] [address] Jul, [facility] [id number] [place] [address] Jul, [facility] [address] [address] Jul, [facility] [address] [address] Sep, [facility] [id number] [place] [address] Sep, [facility] [id number] [place] [address] Sep, IMMUNIZATIONS No Known Immunizations SOCIAL HISTORY Never Assessed REASON FOR VISIT PLAN OF CARE VITAL SIGNS Height 67 in 2013-09-02 Weight 158.2 lbs 2013-09-02 Temperature 98.1 degrees Fahrenheit 2013-09-02 Heart Rate 96 bpm 2013-09-02 Respiratory Rate 20 2013-09-02 Blood pressure systolic 128 mmHg 2013-09-02 Blood pressure diastolic 88 mmHg 2013-09-02 MEDICATIONS Unknown Medications RESULTS No Results PROCEDURES [...] dizziness and nausea 12/06 Hospitalization History UTI, AMS-[facility] 09/21/16 Hospitalization History Large bowel obstruction, Dehydration -[facility] 01/01/17 Hospitalization History [facility]- UTI/Sepsis 01/18/2018 Hospitalization History [facility] - infection 4 days 05/2018
--- OUTSIDE RECORDS SUMMARY | 2020-01-14 23:26 | XMS REPORT ---
Author Author Melvin BENTLEY Organization [facility] Address [address] [place] [address] Care Team Providers Care Sap Director Name Role Phone LINDA BENTLEY Unavailable PROBLEMS Type Condition ICD9-CM Code DAQ78-AE Code Onset Dates Condition S tatus SNOMED Code Problem Incontinence of feces, unspecified fecal incontinence type R15.9 Active 24772069 Problem Primary insomnia F51.01 Active 193 617435 Problem Hydronephrosis with ureteral stricture, not else where classified N13.1 Active 16950768 Problem Chronic fatigue, unspecified R53.82 A ctive 448138365 Problem Hypertension, benign I10 Active 79318348 Problem Mood disorder F39 Active 732496 05 Problem Neuropathy G62.9 Active 238421457 Problem Chronic pain syndrome G89.4 Active 301073642 Problem Abdominal pain, left lower quadrant R10.32 Active 367007959 Problem 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 Active 671495021 Problem 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 171393931 Problem Anxiety F41.9 Active 21156273 Problem Polyneuropathy G62.9 Active 60753 000 Problem Malignant neoplasm of colon, unspecified part of colon C18.9 Active 486261873 Problem Attention to urostomy Z43.6 Active 179290678 ALLERGIES No Information ENCOUNTERS Encounter Location Date Diagnosis [facility] [id number] [place] [address] 12 Aug, 2019 Anxiety F41.9 ; Neuropathy G62.9 and Enc ounter for Medicare annual wellness exam Z00.00 [facility] [address] [address] Jul, [facility] [address] [address] Jul, Primary insomnia F51.01 and Anxiety F41. 9 [place] [id number] [address] 14 Jul, 2019 Primary insomnia F51.01 ; Neuropathy G62 .9 and Encounter for Medicare annual wellness exam Z00.00 [facility] [address] [address] 23 Jun, 2019 Neuropathy G62.9 and Encounter for Medic are annual wellness exam Z00.00 [facility] [address] [address] 18 Jun, 2019 Primary insomnia F51.01 [place] [address] [address] 17 Jun, 2019 Primary insomnia F51.01 ; Encounter for Medicare annual wellness exam Z00.00 and Neuropathy G62.9 [place] [address] [address] 11 Jun, 2019 Malignant neoplasm of colon, unspecified part of colon C18.9 and Chronic fatigue, unspecified R53.82 [place] [address] [address] 20 May, 2019 Neuropathy G62.9 and Encounter for Medic are annual wellness exam Z00.00 [place] [address] [address] 15 May, 2019 Primary insomnia F51.01 [place] [address] [address] May, Neuropathy G62.9 and Anxiety F41.9 [place] [address] [address] 30 Apr, 2019 Encounter for Medicare annual wellness e xam Z00.00 [place] [address] [address] 16 Apr, 2019 Neuropathy G62.9 and Encounter for Medic are annual wellness exam Z00.00 [place] [address] [address] Mar, Neuropathy G62.9 and Primary insomnia F5 1.01 [place] [id number] [place] [address] 18 Mar, 2019 [facility] [id number] [place] [address] Feb, Primary insomnia F51.01 ; Neuropathy G62 .9 and Encounter for Medicare annual wellness exam Z00.00 [facility] [id number] [place] [address] Feb, Neuropathy G62.9 and Encounter for [facility] annual wellness exam Z00.00 [facility] [id number] [place] [address] Feb, Primary insomnia F51.01 and High risk me dication use Z79.899 [facility] [id number] [place] [address] Jan, [facility] [id number] [place] [address] Jan, Neuropathy G62.9 [facility] [id number] [place] [address] Dec, [facility] [address] [address] Dec, Encounter for Medicare annual wellness e xam Z00.00 and Neuropathy G62.9 [facility] [id number] [place] [address] November, [facility] [address] [address] November, Encounter for Medicare annual wellness e xam Z00.00 ; 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 ; Mood disorder F39 ; Chronic fatigue, unspecified R53.82 and Neuropathy G62.9 [facility] [id number] [place] [address] November, Neuropathy G62.9 [facility] [id number] [place] [address] Oct, Neuropathy G62.9 [facility] [id number] [place] [address] Oct, Hypertension, benign I10 and Anxiety F41 .9 [facility] [id number] [place] [address] Oct, [facility] [id number] [place] [address] Oct, [facility] [id number] [place] [address] Oct, [facility] [address] [address] Oct, Neuropathy G62.9 [facility] [address] [address] Sep, [facility] [id number] [place] [address] Sep, Neuropathy G62.9 [facility] [address] [address] Sep, [facility] [id number] [place] [address] Sep, H/O malignant carcinoid tumor of rectum Z85.040 and Primary insomnia F51.01 [facility] [id number] [place] [address] Aug, [facility] [id number] [place] [address] Aug, Neuropathy G62.9 [facility] [id number] [place] [address] Aug, [facility] [id number] [place] [address] Jul, Non-recurrent acute suppurative otitis m edia of left ear without spontaneous rupture of tympanic membrane H66.002 [facility] [id number] [place] [address] Jul, Neuropathy G62.9 [facility] [address] [address] Jun, [facility] [address] [address] Jun, [facility] [address] [address] Jun, Neuropathy G62.9 [facility] [address] [address] Jun, [facility] [address] [address] Jun, [facility] [address] [address] Jun, Lumbar neuritis M54.16 [facility] [address] [address] May, Neuropathy G62.9 [facility] [address] [address] May, [facility] [address] [address] May, Neuropathy G62.9 and Hypertension, benig n I10 [place] [address] [address] Apr, Polyneuropathy G62.9 and Hypertension, b enign I10 [place] [address] [address] Mar, Chronic pain syndrome G89.4 and Hyperten shalini, benign I10 [facility] [address] [address] Mar, Polyneuropathy G62.9 and Hypertension, b enign I10 [facility] [address] [address] Feb, [facility] [address] [address] Feb, Hypertension, benign I10 [facility] [address] [address] 15 Feb, 2018 Hypertension, benign I10 ; Polyneuropath y G62.9 and Primary insomnia F51.01 [facility] [address] [address] Jan, Hypertension, benign I10 and Polyneuropa thy G62.9 [facility] [address] [address] Jan, Hypertension, benign I10 and Neuropathy G62.9 [facility] [address] [address] Jan, [facility] [address] [address] Dec, Polyneuropathy G62.9 [facility] [address] [address] Dec, Mood disorder F39 [facility] [address] [address] November, Polyneuropathy G62.9 [facility] [address] [address] November, Medicare annual wellness visit, initial Z00.00 [facility] [address] [address] November, Mood disorder F39 [facility] [address] [address] Oct, Polyneuropathy G62.9 [facility] [address] [address] Oct, [facility] [address] [address] Oct, [facility] [address] [address] Oct, Mood disorder F39 ; Attention to urostom y Z43.6 ; Chronic pain syndrome G89.4 and Polyneuropathy G62.9 [facility] [id number] [place] [address] Sep, Polyneuropathy G62.9 [facility] [address] [address] Sep, [facility] [address] [address] Sep, Polyneuropathy G62.9 [facility] [address] [address] Aug, Polyneuropathy G62.9 [facility] [address] [address] Aug, Malignant neoplasm of colon, unspecified part of colon C18.9 and Polyneuropathy G62.9 [facility] [address] [address] Aug, Neuropathy G62.9 and Polyneuropathy G62. 9 [facility] [address] [address] Jul, Encounter for drug screening Z02.83 [facility] [address] [address] Jul, Polyneuropathy G62.9 [facility] [address] [address] Jul, [facility] [address] [address] Jul, Neuropathy G62.9 and Anxiety F41.9 [facility] [address] [address] Jul, [facility] [address] [address] Jul, [facility] [address] [address] Jul, [facility] [address] [address] Jul, Polyneuropathy G62.9 [facility] [address] [address] Jul, [facility] [address] [address] Jun, [facility] [address] [address] Jun, [facility] [address] [address] Jun, [facility] [address] [address] Jun, Encounter for dental examina tion Z01.20 [place] [address] [address] Jun, Polyneuropathy G62.9 and Anxiety F41.9 [place] [address] [address] Jun, [facility] [address] [id number] [place] [address] May, Dental examination Z01.20 [place] [address] [address] May, Polyneuropathy G62.9 [place] [address] [address] Apr, Polyneuropathy G62.9 [place] [address] [address] Apr, Polyneuropathy G62.9 [place] [address] [address] Apr, Hypertension, benign I10 ; Polyneuropath y G62.9 and Anxiety F41.9 [facility] [address] [address] Apr, Primary insomnia F51.01 and Polyneuropat hy G62.9 [facility] [address] [id number] [place] [address] Apr, Primary insomnia F51.01 and Polyneuropat hy G62.9 [facility] [address] [id number] [place] [address] Mar, Primary insomnia F51.01 [facility] [address] [id number] [place] [address] Mar, [facility] [id number] [place] [address] Mar, Polyneuropathy G62.9 [facility] [address] [id number] [place] [address] Feb, Primary insomnia F51.01 [facility] [id number] [place] [address] Feb, [facility] [id number] [place] [address] Feb, [facility] [id number] [place] [address] Feb, Polyneuropathy G62.9 [facility] [id number] [place] [address] Feb, Primary insomnia F51.01 [facility] [id number] [place] [address] Jan, [facility] [id number] [place] [address] Jan, [facility] [id number] [place] [address] Dec, [facility] [id number] [place] [address] Dec, Primary insomnia F51.01 [facility] [id number] [place] [address] Dec, Primary insomnia F51.01 [facility] [id number] [place] [address] Dec, [facility] [id number] [place] [address] Dec, [facility] [id number] [place] [address] Dec, [facility] [id number] [place] [address] Dec, [facility] [id number] [place] [address] November, Primary insomnia F51.01 and Polyneuropat hy G62.9 [facility] [address] [address] November, [facility] [address] [address] November, Abdominal pain, left lower quadrant R10. 32 [facility] [id number] [place] [address] November, [facility] [id number] [place] [address] Oct, [facility] [address] [address] Oct, Abdominal pain, left lower quadrant R10. 32 ; H/O malignant carcinoid tumor of rectum Z85.040 and Neuropathy G62.9 [facility] [id number] [place] [address] Oct, [facility] [id number] [place] [address] Sep, [facility] [address] [place] [id number] [place] [id number] Sep, [facility] [id number] [place] [address] Sep, [facility] [id number] [place] [address] Aug, [facility] [id number] [place] [address] 07 Aug, 2016 [facility] [address] [address] Aug, Abdominal pain, left lower quadrant R10. 32 ; Neuropathy G62.9 and Anxiety F41.9 [facility] [address] [place] [address] Jul, [facility] [address] [address] Jul, [facility] [address] [facility] [id number] [address] Jul, [facility] [address] [address] Jul, [facility] [address] [address] Jul, [facility] [address] [address] Jun, [facility] [address] [address] May, [facility] [address] [address] May, [facility] [address] [address] Apr, [facility] [address] [address] Apr, Muscle spasms of both lower extremities M62.838 and Cellulitis, unspecified cellulitis site L03.90 [facility] [address] [address] Apr, [facility] [address] [address] Mar, Generalized abdominal pain R10.84 [facility] [address] [address] Mar, [facility] [address] [address] 14 Mar, 2015 [facility] [address] [id number] [place] [address] 14 Mar, 2016 [facility] [id number] [place] [address] 13 Mar, 2016 [facility] [id number] [place] [address] 12 Mar, 2016 [facility] [id number] [place] [address] 09 Mar, 2016 [facility] [address] [id number] [place] [address] 06 Mar, 2016 [facility] [id number] [place] [address] Feb, Other specified diseases of anus and rec wilton K62.89 [facility] [id number] [place] [address] Feb, [facility] [id number] [place] [address] Feb, Dizziness R42 [facility] [id number] [place] [address] Feb, [facility] [id number] [place] [address] Jan, Polyneuropathy G62.9 [facility] [id number] [place] [address] Jan, Other specified diseases of anus and rec wilton K62.89 [facility] [address] [id number] [place] [address] Jan, [facility] [address] [facility] [id number] [place] [address] Jan, [facility] [address] [id number] [place] [address] Jan, [facility] [id number] [place] [address] Jan, Dizziness R42 [facility] [id number] [place] [address] Dec, [facility] [id number] [place] [address] Dec, [facility] [id number] [place] [address] Dec, [facility] [id number] [place] [address] Dec, Dizziness R42 [facility] [address] [id number] [place] [address] November, [facility] [id number] [place] [address] Oct, [facility] [id number] [place] [address] Oct, [facility] [id number] [place] [address] Oct, [facility] [id number] [place] [address] Oct, [facility] [id number] [place] [address] Sep, [facility] [id number] [place] [address] Sep, Primary insomnia F51.01 [facility] [id number] [place] [address] Sep, Primary insomnia F51.01 [facility] [id number] [place] [address] Sep, [facility] [id number] [place] [address] Aug, [facility] [id number] [place] [address] Aug, [facility] [id number] [place] [address] Aug, Primary insomnia F51.01 ; Mood disorder F39 ; Nausea and vomiting, unspecified intactability, vomiting of unspecified type R11.2 and Diarrhea R19.7 [facility] [address] [address] 15 Aug, 2015 [facility] [address] [address] Aug, Folliculitis L73.9 [facility] [address] [address] Aug, [facility] [address] [address] Aug, [facility] [address] [address] Jul, Folliculitis L73.9 [facility] [address] [address] Jul, [facility] [address] [address] Jun, Folliculitis L73.9 [facility] [address] [address] Jun, [facility] [address] [address] May, Polyneuropathy G62.9 [facility] [address] [address] May, Other specified diseases of anus and rec wilton K62.89 [facility] [address] [address] May, [facility] [address] [address] May, Primary insomnia F51.01 [facility] [address] [address] May, [facility] [address] [address] May, [facility] [id number] [place] [address] Apr, Other specified diseases of anus and rec wilton K62.89 ; Chronic fatigue R53.82 ; Urinary tract infection, site not specified N39.0 and Enterococcus as the cause of diseases classified elsewhere B95.2 [facility] [id number] [place] [address] 16 Apr, 2015 [facility] [id number] [place] [address] 15 Apr, 2015 [facility] [address] [address] 14 Apr, 2015 Unspecified inflammatory and toxic neuro carol 357.9 [facility] [id number] [place] [address] 05 Apr, 2015 [facility] [id number] [place] [address] 26 Mar, 2015 [facility] [id number] [place] [address] 23 Mar, 2015 [facility] [id number] [place] [address] 17 Mar, 2015 [facility] [id number] [place] [address] 14 Mar, 2015 Unspecified inflammatory and toxic neuro carol 357.9 [facility] [id number] [place] [address] 12 Mar, 2015 [facility] [id number] [place] [address] 11 Mar, 2015 [facility] [address] [address] 11 Mar, 2015 [facility] [id number] [place] [address] 10 Mar, 2015 [facility] [id number] [place] [address] Feb, [facility] [id number] [place] [address] Feb, [facility] [id number] [place] [address] Feb, [facility] [id number] [place] [address] Jan, [facility] [id number] [place] [address] Jan, Nausea 787.02 and Neuropathy 355.9 [facility] [address] [id number] [place] [address] Jan, [facility] [id number] [place] [address] Jan, [facility] [address] [id number] [place] [address] Jan, [facility] [id number] [place] [id number] Jan, Dental examination V72.2 [facility] [address] [id number] [place] [address] Jan, [facility] [id number] [place] [address] Dec, [facility] [address] [id number] [place] [address] Dec, [facility] [id number] [place] [address] Dec, Neuropathy 355.9 [facility] [address] [id number] [place] [address] November, [facility] [id number] [place] [address] November, [facility] [id number] [place] [address] November, [facility] [id number] [place] [address] Oct, [facility] [address] [id number] [place] [address] Oct, [facility] [address] [id number] [place] [address] Sep, [facility] [address] [id number] [place] [address] Sep, [facility] [address] [id number] [place] [address] Sep, [facility] [address] [id number] [place] [address] Sep, [facility] [place] [facility] [address] [id number] [place] [address] Sep, [facility] [place] [facility] [address] [id number] [place] [address] Sep, [facility] [place] [facility] [address] [id number] [place] [address] Sep, [facility] [place] [facility] [address] [id number] [place] [address] Sep, [facility] [place] [facility] [address] [id number] [place] [address] Aug, [facility] [place] [facility] [address] [id number] [place] [address] Aug, 2014 [facility] [place] [facility] [address] [id number] [place] [address] Aug, 2014 [facility] [place] [facility] [address] [id number] [place] [address] Aug, 2014 [facility] [place] [facility] [address] [id number] [place] [address] Aug, [facility] [place] [facility] [address] [id number] [place] [address] Aug, 2014 [facility] [place] [facility] [address] [id number] [place] [address] Aug, 2014 [facility] [place] [facility] [address] [id number] [place] [address] Aug, [facility] [place] [facility] [address] [id number] [place] [address] Jul, [facility] [place] [facility] [address] [id number] [place] [address] Jul, [facility] [place] [facility] [address] [id number] [place] [address] Jun, [facility] [place] [facility] [address] [id number] [place] [address] Jun, [facility] [place] [facility] [address] [id number] [place] [address] Jun, [facility] [place] [facility] [address] [id number] [place] [address] Jun, [facility] [place] [facility] [address] [id number] [place] [address] Jun, [facility] [place] [facility] [address] [id number] [place] [address] Jun, [facility] [place] [facility] [address] [id number] [place] [address] Jun, [facility] [place] [facility] [address] [id number] [place] [address] Jun, [facility] [place] [facility] [address] [id number] [place] [address] Jun, [facility] [place] [facility] [address] [id number] [place] [address] Jun, [facility] [place] [facility] [address] [id number] [place] [address] Jun, [facility] [place] [facility] [address] [id number] [place] [address] May, [facility] [place] [facility] [address] [id number] [place] [address] May, [facility] [place] [facility] [address] [id number] [place] [address] May, [facility] [place] [facility] [address] [facility] [id number] [place] [address] May, [facility] [place] [facility] [address] [facility] [id number] [place] [address] May, [facility] [place] [facility] [address] [facility] [id number] [place] [address] May, [facility] [place] [facility] [address] [id number] [place] [address] May, [facility] [place] [facility] [address] [id number] [place] [address] May, [facility] [place] [facility] [address] [id number] [place] [address] May, [facility] [place] [facility] [address] [id number] [place] [address] Apr, [facility] [place] [facility] [address] [id number] [place] [address] Apr, [facility] [place] [facility] [address] [id number] [place] [address] Apr, [facility] [place] [facility] [address] [id number] [place] [address] Apr, [facility] [place] [facility] [address] [id number] [place] [address] Apr, [facility] [place] [facility] [address] [id number] [place] [address] Mar, [facility] [place] [facility] [address] [id number] [place] [address] Mar, [facility] [place] [facility] [address] [id number] [place] [address] Feb, [facility] [place] [facility] [address] [id number] [place] [address] Feb, [facility] [place] [facility] [address] [id number] [place] [address] Feb, [facility] [place] [facility] [address] [id number] [place] [address] Feb, [facility] [place] [facility] [address] [id number] [place] [address] Feb, [facility] [place] [facility] [address] [facility] [id number] [place] [address] Feb, [facility] [place] [facility] [address] [facility] [id number] [place] [address] Jan, [facility] [place] [facility] [address] [facility] [id number] [facility] [place] [address] Jan, [facility] [place] [facility] [address] [facility] [id number] [place] [address] Jan, [facility] [place] [facility] [address] [facility] [id number] [place] [address] Jan, [facility] [place] [facility] [address] [facility] [id number] [place] [address] Jan, [facility] [place] [facility] [address] [id number] [place] [address] Jan, [facility] [place] [facility] [address] [facility] [id number] [place] [address] Jan, [facility] [place] [facility] [address] [facility] [id number] [place] [address] Jan, [facility] [place] [facility] [address] [id number] [place] [address] Jan, [facility] [place] [facility] [address] [id number] [place] [address] Jan, [facility] [place] [facility] [address] [facility] [id number] [place] [address] Jan, [facility] [place] [facility] [address] [facility] [id number] [place] [address] Dec, [facility] [place] [facility] [address] [facility] [id number] [place] [address] Dec, [facility] [place] [facility] [address] [id number] [place] [address] Dec, [facility] [place] [facility] [address] [facility] [id number] [place] [address] Dec, [facility] [place] [facility] [address] [facility] [id number] [facility] [place] [address] Dec, [facility] [place] [facility] [address] [facility] [id number] [facility] [place] [address] Dec, [facility] [place] [facility] [address] [id number] [facility] [place] [address] November, [facility] [place] [facility] [address] [facility] [id number] [place] [address] November, [facility] [place] [facility] [address] [facility] [id number] [place] [address] November, [facility] [place] [facility] [address] [id number] [facility] [place] [address] November, [facility] [place] [facility] [address] [id number] [facility] [place] [address] November, [facility] [place] [facility] [address] [id number] [facility] [place] [address] November, [facility] [place] [facility] [address] [facility] [id number] [facility] [place] [address] Oct, [facility] [place] [facility] [address] [id number] [facility] [place] [address] Oct, [facility] [place] [facility] [address] [id number] [place] [address] Oct, [facility] [place] [facility] [address] [id number] [facility] [place] [address] Oct, [facility] [place] [facility] [address] [facility] [id number] [facility] [place] [address] Sep, [facility] [place] [facility] [address] [id number] [facility] [place] [address] Sep, [facility] [place] [facility] [address] [facility] [id number] [facility] [place] [address] Sep, [facility] [place] [facility] [address] [id number] [facility] [place] [address] Sep, [facility] [place] [facility] [address] [id number] [place] [address] Sep, [facility] [address] [facility] [id number] [place] [address] Aug, [facility] [place] [facility] [address] [id number] [place] [address] Aug, [facility] [address] [id number] [place] [address] Aug, [facility] [place] [facility] [address] [id number] [place] [address] Aug, [facility] [address] [id number] [place] [address] Aug, [facility] [address] [place] [id number] May, [facility] [address] [id number] [place] [address] May, [facility] [place] [facility] [address] [id number] [place] [address] May, [facility] [place] [facility] [address] [id number] [place] [address] May, [facility] [place] [facility] [address] [id number] [place] [address] May, [facility] [place] [facility] [address] [id number] [place] [address] Apr, [facility] [place] [facility] [address] [id number] [place] [address] Apr, [facility] [place] [facility] [address] [id number] [place] [address] Apr, [facility] [place] [facility] [address] [id number] [place] [address] Apr, [facility] [place] [facility] [address] [id number] [place] [address] Apr, [facility] [place] [facility] [address] [id number] [place] [address] Apr, [facility] [place] [facility] [address] [id number] [place] [address] Apr, [facility] [place] [facility] [address] [id number] [facility] [place] [address] Mar, [facility] [place] [facility] [address] [id number] [place] [address] Mar, [facility] [place] [facility] [address] [id number] [place] [address] 24 Mar, 2013 [facility] [place] [facility] [address] [facility] [id number] [place] [address] 16 Mar, 2013 [facility] [place] [facility] [address] [id number] [place] [address] Mar, [facility] [place] [facility] [address] [id number] [place] [address] Mar, [facility] [place] [facility] [address] [id number] [place] [address] Feb, [facility] [place] [facility] [address] [id number] [place] [address] Feb, [facility] [place] [facility] [address] [id number] [place] [address] Feb, [facility] [place] [facility] [address] [id number] [place] [address] Feb, [facility] [place] [facility] [address] [id number] [place] [address] Feb, [facility] [place] [facility] [address] [id number] [place] [address] Feb, [facility] [place] [facility] [address] [id number] [place] [address] Jan, [facility] [place] [facility] [address] [id number] [place] [address] Dec, [facility] [place] [facility] [address] [id number] [place] [address] Dec, [facility] [place] [facility] [address] [id number] [facility] [place] [address] Dec, [facility] [place] [facility] [address] [facility] [id number] [facility] [place] [address] Dec, [facility] [place] [facility] [address] [id number] [place] [address] Dec, [facility] [place] [facility] [address] [id number] [place] [address] Dec, [facility] [place] [facility] [address] [id number] [place] [address] Dec, [facility] [place] [facility] [address] [id number] [facility] [place] [address] Dec, [facility] [place] [facility] [address] [id number] [place] [address] Dec, [facility] [place] [facility] [address] [id number] [place] [address] November, [facility] [place] [facility] [address] [id number] [place] [address] November, [facility] [place] [facility] [address] [id number] [place] [address] Oct, [facility] [place] [facility] [address] [id number] [place] [address] Sep, [facility] [place] [facility] [address] [id number] [place] [address] Sep, [facility] [place] [facility] [address] [id number] [place] [address] 15 Sep, 2012 [facility] [place] [facility] [address] [id number] [place] [address] Sep, [facility] [place] [facility] [address] [id number] [place] [address] Aug, [facility] [place] [facility] [address] [id number] [place] [address] 08 Aug, 2012 [facility] [place] [facility] [address] [id number] [place] [address] Jul, [facility] [place] [facility] [address] [id number] [place] [address] Jul[facility] [address] [id number] [place] [address] Jul, [facility] [address] [id number] [place] [address] Sep, [facility] [address] [id number] [place] [address] Sep, [facility] [address] [id number] [place] [address] Sep, IMMUNIZATIONS No Known Immunizations SOCIAL HISTORY [...] obstruction, Dehydration -[facility]CH 01/01/[address] [facility]- UTI/Sepsis 01/18/2018 Hospitalization History [facility] - infection 4 days 05/2018
[2020-01-14 23:27] LABS: ALKALINE PHOSPHATASE 79 U/L (40-136); CREATININE SERUM 1.13 MG/DL (0.60-1.30); GFR ESTIMATED > 60
--- OUTSIDE RECORDS SUMMARY | 2020-01-14 23:27 | XMS REPORT ---
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 Name Role Phone LINDA BENTLEY Unavailable PROBLEMS Type Condition ICD9-CM Code XED70-SJ Code Onset Dates Condition S tatus SNOMED Code Problem Incontinence of feces, unspecified fecal incontinence type R15.9 Active 60420011 Problem Primary insomnia F51.01 Active 193 423384 Problem Hydronephrosis with ureteral stricture, not else where classified N13.1 Active 46948386 Problem Chronic fatigue, unspecified R53.82 A ctive 817703236 Problem Hypertension, benign I10 Active 51281780 Problem Mood disorder F39 Active 911444 05 Problem Neuropathy G62.9 Active 908632180 Problem Chronic pain syndrome G89.4 Active 111316765 Problem Abdominal pain, left lower quadrant R10.32 Active 598156863 Problem 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 Active 603757089 Problem 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 598422891 Problem Anxiety F41.9 Active 48369409 Problem Polyneuropathy G62.9 Active 65844 000 Problem Malignant neoplasm of colon, unspecified part of colon C18.9 Active 570820626 Problem Attention to urostomy Z43.6 Active 517151237 ALLERGIES No Information ENCOUNTERS Encounter Location Date Diagnosis [facility] [id number] [place] [address] Aug, [facility] [address] [place] [address] Aug, Anxiety F41.9 ; Neuropathy G62.9 and Enc ounter for Medicare annual wellness exam Z00.00 [facility] [id number] [place] [address] Jul, [address] [place] [address] Jul, Primary insomnia F51.01 and Anxiety F41. 9 [facility] [address] [address] Jul, Primary insomnia F51.01 ; Neuropathy G62 .9 and Encounter for Medicare annual wellness exam Z00.00 [facility] [address] [address] Jun, Neuropathy G62.9 and Encounter for Medic are annual wellness exam Z00.00 [facility] [address] [address] 18 Jun, 2019 Primary insomnia F51.01 [facility] [address] [address] Jun, Primary insomnia F51.01 ; Encounter for Medicare annual wellness exam Z00.00 and Neuropathy G62.9 [facility] [address] [address] Jun, Malignant neoplasm of colon, unspecified part of colon C18.9 and Chronic fatigue, unspecified R53.82 [facility] [address] [address] May, Neuropathy G62.9 and Encounter for Medic are annual wellness exam Z00.00 [facility] [address] [address] 15 May, 2019 Primary insomnia F51.01 [facility] [address] [address] May, Neuropathy G62.9 and Anxiety F41.9 [facility] [address] [address] Apr, Encounter for Medicare annual wellness e xam Z00.00 [facility] [address] [address] Apr, Neuropathy G62.9 and Encounter for Medic are annual wellness exam Z00.00 [facility] [address] [address] Mar, Neuropathy G62.9 and Primary insomnia F5 1.01 [facility] [id number] [place] [address] 18 Mar, 2019 [facility] [address] [address] Feb, Primary insomnia F51.01 ; Neuropathy G62 .9 and Encounter for Medicare annual wellness exam Z00.00 [facility] [address] [address] Feb, Neuropathy G62.9 and Encounter for Medic [facility] annual wellness exam Z00.00 [place] [address] [address] Feb, Primary insomnia F51.01 and High risk me dication use Z79.899 [facility] [address] [address] Jan, [facility] [address] [address] Jan, Neuropathy G62.9 [facility] [address] [address] Dec, [facility] [address] [address] Dec, Encounter for Medicare annual wellness e xam Z00.00 and Neuropathy G62.9 [facility] [address] [address] November, [facility] [address] [address] November, Encounter for Medicare annual wellness e xam Z00.00 ; 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 ; Mood disorder F39 ; Chronic fatigue, unspecified R53.82 and Neuropathy G62.9 [facility] [id number] [place] [address] November, Neuropathy G62.9 [facility] [address] [address] Oct, Neuropathy G62.9 [facility] [address] [address] Oct, Hypertension, benign I10 and Anxiety F41 .9 [facility] [address] [address] Oct, [facility] [address] [address] Oct, [facility] [address] [address] Oct, [facility] [address] [address] Oct, Neuropathy G62.9 [facility] [address] [address] Sep, [facility] [address] [address] Sep, Neuropathy G62.9 [facility] [address] [address] Sep, [facility] [address] [address] Sep, H/O malignant carcinoid tumor of rectum Z85.040 and Primary insomnia F51.01 [facility] [address] [address] Aug, [facility] [address] [address] Aug, Neuropathy G62.9 [facility] [address] [address] Aug, [facility] [address] [address] Jul, Non-recurrent acute suppurative otitis m edia of left ear without spontaneous rupture of tympanic membrane H66.002 [facility] [address] [address] Jul, Neuropathy G62.9 [facility] [address] [address] Jun, [facility] [address] [address] Jun, [facility] [address] [address] Jun, Neuropathy G62.9 [facility] [address] [address] Jun, [facility] [address] [address] Jun, [facility] [address] [address] Jun, Lumbar neuritis M54.16 [facility] [address] [address] May, Neuropathy G62.9 [facility] [address] [address] May, [facility] [address] [address] May, Neuropathy G62.9 and Hypertension, jet n I10 [facility] [address] [address] Apr, Polyneuropathy G62.9 and Hypertension, b enign I10 [facility] [address] [address] 17 Mar, 2018 Chronic pain syndrome G89.4 and Hyperten shalini, benign I10 [facility] [address] [address] Mar, Polyneuropathy G62.9 and Hypertension, b enign I10 [facility] [address] [address] Feb, [facility] [address] [address] 16 Feb, 2018 Hypertension, benign I10 [facility] [address] [address] 15 Feb, 2018 Hypertension, benign I10 ; Polyneuropath y G62.9 and Primary insomnia F51.01 [facility] [address] [address] 17 Jan, 2018 Hypertension, benign I10 and Polyneuropa thy G62.9 [facility] [address] [address] Jan, Hypertension, benign I10 and Neuropathy G62.9 [facility] [address] [address] Jan, [facility] [address] [address] Dec, Polyneuropathy G62.9 [facility] [address] [address] Dec, Mood disorder F39 [facility] [address] [address] November, Polyneuropathy G62.9 [facility] [address] [address] November, Medicare annual wellness visit, initial Z00.00 [facility] [address] [address] November, Mood disorder F39 [facility] [address] [address] Oct, Polyneuropathy G62.9 [facility] [address] [address] Oct, [facility] [address] [address] Oct, [facility] [address] [address] Oct, Mood disorder F39 ; Attention to urostom y Z43.6 ; Chronic pain syndrome G89.4 and Polyneuropathy G62.9 [facility] [address] [address] Sep, Polyneuropathy G62.9 [facility] [address] [address] Sep, [facility] [address] [address] Sep, Polyneuropathy G62.9 [facility] [address] [address] Aug, Polyneuropathy G62.9 [facility] [address] [address] Aug, Malignant neoplasm of colon, unspecified part of colon C18.9 and Polyneuropathy G62.9 [facility] [address] [address] Aug, Neuropathy G62.9 and Polyneuropathy G62. 9 [facility] [address] [address] Jul, Encounter for drug screening Z02.83 [facility] [address] [address] Jul, Polyneuropathy G62.9 [facility] [address] [address] Jul, [facility] [address] [address] Jul, Neuropathy G62.9 and Anxiety F41.9 [facility] [address] [address] Jul, [facility] [address] [address] Jul, [place] [address] [address] Jul, [facility] [address] [address] Jul, Polyneuropathy G62.9 [facility] [address] [address] Jul, [facility] [address] [address] Jun, [facility] [address] [address] Jun, [facility] [address] [address] Jun, [facility] [address] [facility] [address] Jun, Encounter for dental examina tion Z01.20 [facility] [address] [address] Jun, Polyneuropathy G62.9 and Anxiety F41.9 [facility] [address] [address] Jun, [facility] [address] [facility] [address] May, Dental examination Z01.20 [facility] [address] [address] May, Polyneuropathy G62.9 [facility] [address] [address] Apr, Polyneuropathy G62.9 [facility] [address] [address] Apr, Polyneuropathy G62.9 [facility] [address] [address] Apr, Hypertension, benign I10 ; Polyneuropath y G62.9 and Anxiety F41.9 [facility] [address] [address] Apr, Primary insomnia F51.01 and Polyneuropat hy G62.9 [facility] [address] [id number] [place] [address] Apr, Primary insomnia F51.01 and Polyneuropat hy G62.9 [facility] [id number] [place] [address] Mar, Primary insomnia F51.01 [facility] [id number] [place] [address] Mar, [facility] [address] [address] Mar, Polyneuropathy G62.9 [facility] [address] [address] Feb, Primary insomnia F51.01 [facility] [address] [address] Feb, [facility] [address] [address] Feb, [facility] [address] [address] Feb, Polyneuropathy G62.9 [facility] [id number] [place] [address] Feb, Primary insomnia F51.01 [facility] [address] [address] Jan, [facility] [address] [address] Jan, [facility] [address] [address] Dec, [facility] [address] [address] Dec, Primary insomnia F51.01 [facility] [address] [address] Dec, Primary insomnia F51.01 [facility] [id number] [place] [address] Dec, [facility] [address] [address] Dec, [facility] [id number] [place] [address] Dec, [facility] [address] [address] Dec, [facility] [address] [address] November, Primary insomnia F51.01 and Polyneuropat hy G62.9 [facility] [id number] [place] [address] November, [facility] [address] [address] November, Abdominal pain, left lower quadrant R10. 32 [facility] [id number] [place] [address] November, [facility] [address] [address] Oct, [facility] [address] [address] Oct, Abdominal pain, left lower quadrant R10. 32 ; H/O malignant carcinoid tumor of rectum Z85.040 and Neuropathy G62.9 [facility] [id number] [place] [address] Oct, [facility] [id number] [place] [address] Sep, [facility] [address] [place] [id number] [id number] Sep, [facility] [address] [id number] [place] [address] Sep, [facility] [id number] [place] [address] Aug, [facility] [address] [address] Aug, [facility] [address] [address] Aug, Abdominal pain, left lower quadrant R10. 32 ; Neuropathy G62.9 and Anxiety F41.9 [facility] [address] [place] [address] Jul, [facility] [address] [address] Jul, [facility] [address] [facility] [id number] [place] [address] Jul, [facility] [address] [address] Jul, [facility] [address] [address] Jul, [facility] [address] [address] Jun, [facility] [address] [address] May, [facility] [address] [address] May, [facility] [address] [address] Apr, [facility] [address] [address] Apr, Muscle spasms of both lower extremities M62.838 and Cellulitis, unspecified cellulitis site L03.90 [facility] [address] [address] Apr, [facility] [address] [address] Mar, Generalized abdominal pain R10.84 [facility] [address] [address] 20 Mar, 2015 [facility] [address] [id number] [place] [address] 14 Mar, 2016 [facility] [id number] [place] [address] 14 Mar, 2016 [facility] [id number] [place] [address] 13 Mar, 2016 [facility] [id number] [place] [address] 12 Mar, 2016 [facility] [id number] [place] [address] 09 Mar, 2016 [facility] [id number] [place] [address] 06 Mar, 2016 [facility] [id number] [place] [address] 17 Feb, 2016 Other specified diseases of anus and rec wilton K62.89 [facility] [id number] [place] [address] 15 Feb, 2016 [facility] [id number] [place] [address] Feb, Dizziness R42 [facility] [id number] [place] [address] Feb, [facility] [id number] [place] [address] Jan, Polyneuropathy G62.9 [facility] [id number] [place] [address] Jan, Other specified diseases of anus and rec wilton K62.89 [facility] [id number] [place] [address] Jan, [facility] [address] [facility] [id number] [place] [address] Jan, [facility] [id number] [place] [address] Jan, [facility] [address] [id number] [place] [address] Jan, Dizziness R42 [facility] [address] [id number] [place] [address] Dec, [facility] [address] [id number] [place] [address] Dec, [facility] [id number] [place] [address] Dec, [facility] [address] [id number] [place] [address] Dec, Dizziness R42 [facility] [id number] [place] [address] November, [facility] [id number] [place] [address] Oct, [facility] [id number] [place] [address] Oct, [facility] [address] [id number] [place] [address] Oct, [facility] [id number] [place] [address] Oct, [facility] [address] [id number] [place] [address] Sep, [facility] [id number] [place] [address] Sep, Primary insomnia F51.01 [facility] [address] [id number] [place] [address] Sep, Primary insomnia F51.01 [facility] [id number] [place] [address] Sep, [facility] [id number] [place] [address] Aug, [facility] [id number] [place] [address] Aug, [facility] [address] [address] 15 Aug, 2015 Primary insomnia F51.01 ; Mood disorder F39 ; Nausea and vomiting, unspecified intactability, vomiting of unspecified type R11.2 and Diarrhea R19.7 [facility] [address] [address] 15 Aug, 2015 [facility] [address] [address] Aug, Folliculitis L73.9 [facility] [address] [address] Aug, [facility] [address] [address] Aug, [facility] [address] [address] Jul, Folliculitis L73.9 [facility] [address] [address] Jul, [facility] [address] [address] Jun, Folliculitis L73.9 [facility] [address] [address] Jun, [facility] [address] [address] May, Polyneuropathy G62.9 [facility] [address] [address] May, Other specified diseases of anus and rec wilton K62.89 [facility] [address] [address] May, [facility] [address] [address] May, Primary insomnia F51.01 [facility] [address] [address] May, [facility] [id number] [place] [address] May, [facility] [id number] [place] [address] Apr, Other specified diseases of anus and rec wilton K62.89 ; Chronic fatigue R53.82 ; Urinary tract infection, site not specified N39.0 and Enterococcus as the cause of diseases classified elsewhere B95.2 [facility] [id number] [place] [address] 16 Apr, 2015 [facility] [id number] [place] [address] 15 Apr, 2015 [facility] [address] [address] Apr, Unspecified inflammatory and toxic neuro carol 357.9 [facility] [id number] [place] [address] 05 Apr, 2015 [facility] [id number] [place] [address] 26 Mar, 2015 [facility] [id number] [place] [address] 23 Mar, 2015 [facility] [id number] [place] [address] 17 Mar, 2015 [facility] [address] [address] 14 Mar, 2015 Unspecified inflammatory and toxic neuro carol 357.9 [facility] [id number] [place] [address] 12 Mar, 2015 [facility] [id number] [place] [address] 11 Mar, 2015 [facility] [id number] [place] [address] 11 Mar, 2015 [facility] [id number] [place] [address] 10 Mar, 2015 [facility] [id number] [place] [address] Feb, [facility] [id number] [place] [address] Feb, [facility] [id number] [place] [address] Feb, [facility] [id number] [place] [address] Jan, [facility] [id number] [place] [address] Jan, Nausea 787.02 and Neuropathy 355.9 [facility] [id number] [place] [address] Jan, [facility] [id number] [place] [address] Jan, [facility] [id number] [place] [address] Jan, [facility] [address] [id number] [place] [id number] Jan, Dental examination V72.2 [facility] [id number] [place] [address] Jan, [facility] [id number] [place] [address] Dec, [facility] [id number] [place] [address] Dec, [facility] [id number] [place] [address] Dec, Neuropathy 355.9 [facility] [id number] [place] [address] November, [facility] [id number] [place] [address] November, [facility] [id number] [place] [address] November, [facility] [address] [id number] [place] [address] 14 Oct, 2014 [facility] [address] [id number] [place] [address] Oct, [facility] [address] [id number] [place] [address] Sep, [facility] [address] [id number] [place] [address] Sep, [facility] [address] [id number] [place] [address] Sep, [facility] [address] [id number] [place] [address] Sep, [facility] [address] [id number] [place] [address] Sep, [facility] [address] [id number] [place] [address] Sep, [facility] [address] [id number] [place] [address] Sep, [facility] [address] [id number] [place] [address] Sep, [facility] [address] [id number] [place] [address] Aug, 2014 [facility] [address] [id number] [place] [address] Aug, 2014 [facility] [address] [id number] [place] [address] Aug, 2014 [facility] [address] [id number] [place] [address] Aug, 2014 [facility] [place] [facility] [address] [id number] [place] [address] Aug, [facility] [place] [facility] [address] [id number] [place] [address] Aug, 2014 [facility] [place] [facility] [address] [id number] [place] [address] Aug, [facility] [place] [facility] [address] [id number] [place] [address] Aug, [facility] [place] [facility] [address] [id number] [place] [address] Jul, [facility] [place] [facility] [address] [id number] [place] [address] Jul, [facility] [place] [facility] [address] [id number] [place] [address] Jun, [facility] [place] [facility] [address] [id number] [place] [address] Jun, [facility] [place] [facility] [address] [id number] [place] [address] Jun, [facility] [place] [facility] [address] [id number] [place] [address] Jun, [facility] [place] [facility] [address] [id number] [place] [address] Jun, [facility] [place] [facility] [address] [id number] [place] [address] Jun, [facility] [place] [facility] [address] [id number] [place] [address] Jun, [facility] [place] [facility] [address] [id number] [place] [address] Jun, [facility] [place] [facility] [address] [id number] [place] [address] Jun, [facility] [place] [facility] [address] [id number] [place] [address] Jun, [facility] [place] [facility] [address] [id number] [place] [address] Jun, [facility] [place] [facility] [address] [id number] [place] [address] May, [facility] [place] [facility] [address] [id number] [place] [address] May, [facility] [place] [facility] [address] [id number] [place] [address] May, [facility] [place] [facility] [address] [id number] [place] [address] May, [facility] [place] [facility] [address] [id number] [place] [address] May, [facility] [place] [facility] [address] [id number] [place] [address] May, [facility] [place] [facility] [address] [id number] [place] [address] May, [facility] [place] [facility] [address] [id number] [place] [address] May, [facility] [place] [facility] [address] [id number] [place] [address] May, [facility] [place] [facility] [address] [id number] [place] [address] Apr, [facility] [place] [facility] [address] [id number] [place] [address] Apr, [facility] [place] [facility] [address] [id number] [place] [address] Apr, [facility] [place] [facility] [address] [id number] [place] [address] Apr, [facility] [place] [facility] [address] [id number] [place] [address] Apr, [facility] [place] [facility] [address] [id number] [place] [address] Mar, [facility] [place] [facility] [address] [id number] [place] [address] Mar, [facility] [place] [facility] [address] [id number] [place] [address] Feb, [facility] [place] [facility] [address] [id number] [place] [address] Feb, [facility] [place] [facility] [address] [id number] [place] [address] Feb, [facility] [place] [facility] [address] [id number] [place] [address] Feb, [facility] [place] [facility] [address] [facility] [id number] [place] [address] Feb, [facility] [place] [facility] [address] [facility] [id number] [place] [address] Feb, [facility] [place] [facility] [address] [id number] [place] [address] Jan, [facility] [place] [facility] [address] [facility] [id number] [place] [address] Jan, [facility] [place] [facility] [address] [id number] [place] [address] Jan, [facility] [place] [facility] [address] [facility] [id number] [place] [address] Jan, [facility] [place] [facility] [address] [id number] [place] [address] Jan, [facility] [place] [facility] [address] [facility] [id number] [place] [address] Jan, [facility] [place] [facility] [address] [facility] [id number] [place] [address] Jan, [facility] [place] [facility] [address] [facility] [id number] [place] [address] Jan, [facility] [place] [facility] [address] [facility] [id number] [place] [address] Jan, [facility] [place] [facility] [address] [facility] [id number] [place] [address] Jan, [facility] [place] [facility] [address] [id number] [place] [address] Jan, [facility] [place] [facility] [address] [facility] [id number] [place] [address] Dec, [facility] [place] [facility] [address] [facility] [id number] [place] [address] Dec, [facility] [place] [facility] [address] [facility] [id number] [place] [address] Dec, [facility] [place] [facility] [address] [facility] [id number] [place] [address] Dec, [facility] [place] [facility] [address] [facility] [id number] [place] [address] Dec, [facility] [place] [facility] [address] [id number] [place] [address] Dec, [facility] [place] [facility] [address] [id number] [place] [address] November, [facility] [place] [facility] [address] [facility] [id number] [place] [address] November, [facility] [place] [facility] [address] [id number] [place] [address] November, [facility] [place] [facility] [address] [id number] [place] [address] November, [facility] [place] [facility] [address] [id number] [place] [address] November, [facility] [place] [facility] [address] [facility] [id number] [place] [address] November, [facility] [place] [facility] [address] [id number] [place] [address] Oct, [facility] [place] [facility] [address] [id number] [place] [address] Oct, [facility] [place] [facility] [address] [id number] [place] [address] Oct, [facility] [place] [facility] [address] [facility] [id number] [place] [address] 16 Oct, 2013 [facility] [place] [facility] [address] [id number] [place] [address] 17 Sep, 2013 [facility] [place] [facility] [address] [id number] [place] [address] 17 Sep, 2013 [facility] [place] [facility] [address] [id number] [place] [address] Sep, [facility] [place] [facility] [address] [facility] [id number] [place] [address] Sep, [facility] [place] [facility] [address] [facility] [id number] [place] [address] Sep, [facility] [place] [facility] [address] [facility] [id number] [place] [address] Aug, [facility] [place] [facility] [address] [id number] [place] [address] Aug, [facility] [place] [facility] [address] [id number] [place] [address] Aug, [facility] [place] [facility] [address] [id number] [place] [address] Aug, [facility] [place] [facility] [address] [id number] [place] [address] Aug, [facility] [address] [place] [id number] May, [facility] [place] [facility] [address] [id number] [place] [address] May, [facility] [place] [facility] [address] [id number] [place] [address] May, [facility] [place] [facility] [address] [id number] [place] [address] May, [facility] [place] [facility] [address] [id number] [place] [address] May, [facility] [place] [facility] [address] [id number] [place] [address] Apr, [facility] [place] [facility] [address] [id number] [place] [address] Apr, [facility] [place] [facility] [address] [id number] [place] [address] Apr, [facility] [place] [facility] [address] [id number] [place] [address] Apr, [facility] [place] [facility] [address] [id number] [place] [address] Apr, [facility] [place] [facility] [address] [id number] [place] [address] Apr, [facility] [place] [facility] [address] [facility] [id number] [place] [address] Apr, [facility] [place] [facility] [address] [id number] [place] [address] Mar, [facility] [place] [facility] [address] [id number] [place] [address] Mar, [facility] [place] [facility] [address] [facility] [id number] [place] [address] Mar, [facility] [place] [facility] [address] [id number] [place] [address] Mar, [facility] [place] [facility] [address] [id number] [place] [address] Mar, [facility] [place] [facility] [address] [id number] [place] [address] Mar, [facility] [place] [facility] [address] [id number] [place] [address] Feb, [facility] [place] [facility] [address] [id number] [place] [address] Feb, [facility] [place] [facility] [address] [id number] [place] [address] Feb, [facility] [place] [facility] [address] [id number] [place] [address] Feb, [facility] [place] [facility] [address] [id number] [place] [address] Feb, [facility] [place] [facility] [address] [id number] [place] [address] Feb, [facility] [place] [facility] [address] [id number] [place] [address] Jan, [facility] [place] [facility] [address] [id number] [place] [address] Dec, [facility] [place] [facility] [address] [id number] [place] [address] Dec, [facility] [place] [facility] [address] [facility] [id number] [place] [address] Dec, [facility] [place] [facility] [address] [id number] [place] [address] Dec, [facility] [place] [facility] [address] [id number] [place] [address] Dec, [facility] [place] [facility] [address] [id number] [place] [address] Dec, [facility] [place] [facility] [address] [facility] [id number] [place] [address] Dec, [facility] [place] [facility] [address] [id number] [place] [address] Dec, [facility] [place] [facility] [address] [id number] [place] [address] Dec, [facility] [place] [facility] [address] [id number] [place] [address] November, [facility] [place] [facility] [address] [id number] [place] [address] November, [facility] [place] [facility] [address] [id number] [place] [address] Oct, [facility] [place] [facility] [address] [id number] [place] [address] Sep, [facility] [place] [facility] [address] [id number] [place] [address] Sep, [facility] [place] [facility] [address] [facility] [id number] [place] [address] 15 Sep, 2012 [facility] [place] [facility] [address] [id number] [place] [address] Sep, [facility] [place] [facility] [address] [id number] [place] [address] Aug, [facility] [place] [facility] [address] [id number] [place] [address] 08 Aug, 2012 [facility] [address] [id number] [place] [address] Jul, [facility] [id number] [place] [address] Jul, [facility] [id number] [place] [address] Jul, [facility] [id number] [place] [address] Sep, [facility] [id number] [place] [address] Sep, [facility] [address] [address] Sep, IMMUNIZATIONS No Known Immunizations SOCIAL HISTORY Never Assessed REASON FOR VISIT PLAN OF CARE VITAL SIGNS Height 67 in 2013-10-30 Weight 155 lbs 2013-10-30 Temperature 97.8 degrees Fahrenheit 2013-10-30 Heart Rate 80 bpm 2013-10-30 Respiratory Rate 20 2013-10-30 Blood pressure systolic 132 mmHg 2013-10-30 Blood pressure diastolic 74 mmHg 2013-10-30 MEDICATIONS Unknown Medications RESULTS No Results PROCEDURES [...] dizziness and nausea 12/06 Hospitalization History UTI, AMS-[facility] 09/21/16 Hospitalization History Large bowel obstruction, Dehydration -[facility] 01/01/17 Hospitalization History [facility]- UTI/Sepsis 01/18/2018 Hospitalization History [facility] - infection 4 days 05/2018
--- OUTSIDE RECORDS SUMMARY | 2020-01-14 23:27 | XMS REPORT ---
Author Author Melvin BENTLEY Organization [facility] Address [address] [place] [address] Care Team Providers Care Purchaser Name Role Phone LINDA BENTLEY Unavailable PROBLEMS Type Condition ICD9-CM Code [id number] Code Onset Dates Condition S tatus SNOMED Code Problem Incontinence of feces, unspecified fecal incontinence type R15.9 Active 14321200 Problem Primary insomnia F51.01 Active 193 338591 Problem Hydronephrosis with ureteral stricture, not else where classified N13.1 Active 08366768 Problem Chronic fatigue, unspecified R53.82 A ctive 807073984 Problem Hypertension, benign I10 Active 54845788 Problem Mood disorder F39 Active 277506 05 Problem Neuropathy G62.9 Active 550970419 Problem Chronic pain syndrome G89.4 Active 934472855 Problem Abdominal pain, left lower quadrant R10.32 Active 002994327 Problem 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 Active 858446280 Problem 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 183485284 Problem Anxiety F41.9 Active 11489309 Problem Polyneuropathy G62.9 Active 60108 000 Problem Malignant neoplasm of colon, unspecified part of colon C18.9 Active 788003902 Problem Attention to urostomy Z43.6 Active 467262179 ALLERGIES No Information ENCOUNTERS Encounter Location Date Diagnosis [facility] [id number] [place] [address] Aug, [facility] [address] [address] Jul, [facility] [address] [address] Jul, Primary insomnia F51.01 and Anxiety F41. 9 [facility] [address] [address] Jul, Primary insomnia F51.01 ; Neuropathy G62 .9 and Encounter for Medicare annual wellness exam Z00.00 [place] [address] [address] Jun, Neuropathy G62.9 and Encounter for Medic are annual wellness exam Z00.00 [facility] [address] [address] Jun, Primary insomnia F51.01 [place] [address] [address] Jun, Primary insomnia F51.01 ; Encounter for Medicare annual wellness exam Z00.00 and Neuropathy G62.9 [place] [address] [address] Jun, Malignant neoplasm of colon, unspecified part of colon C18.9 and Chronic fatigue, unspecified R53.82 [place] [address] [address] May, Neuropathy G62.9 and Encounter for Medic are annual wellness exam Z00.00 [place] [address] [address] 15 May, 2019 Primary insomnia F51.01 [place] [address] [address] May, Neuropathy G62.9 and Anxiety F41.9 [place] [address] [address] Apr, Encounter for Medicare annual wellness e xam Z00.00 [place] [address] [address] 16 Apr, 2019 Neuropathy G62.9 and Encounter for Medic are annual wellness exam Z00.00 [place] [address] [address] Mar, Neuropathy G62.9 and Primary insomnia F5 1.01 [place] [address] [address] 18 Mar, 2019 [facility] [id number] [place] [address] Feb, Primary insomnia F51.01 ; Neuropathy G62 .9 and Encounter for Medicare annual wellness exam Z00.00 [facility] [address] [address] 06 Feb, 2019 Neuropathy G62.9 and Encounter for [facility] annual wellness exam Z00.00 [facility] [address] [address] Feb, Primary insomnia F51.01 and High risk me dication use Z79.899 [place] [address] [address] Jan, [place] [address] [address] Jan, Neuropathy G62.9 [place] [address] [address] Dec, [place] [address] [address] Dec, Encounter for Medicare annual wellness e xam Z00.00 and Neuropathy G62.9 [place] [address] [address] November, [place] [address] [address] November, Encounter for Medicare annual wellness e xam Z00.00 ; 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 ; Mood disorder F39 ; Chronic fatigue, unspecified R53.82 and Neuropathy G62.9 [place] [address] [address] November, Neuropathy G62.9 [place] [address] [address] Oct, Neuropathy G62.9 [facility] [address] [address] Oct, Hypertension, benign I10 and Anxiety F41 .9 [facility] [address] [address] Oct, [facility] [address] [address] Oct, [facility] [address] [address] Oct, [facility] [address] [address] Oct, Neuropathy G62.9 [facility] [address] [address] Sep, [facility] [address] [address] Sep, Neuropathy G62.9 [facility] [address] [address] Sep, [facility] [address] [address] Sep, H/O malignant carcinoid tumor of rectum Z85.040 and Primary insomnia F51.01 [facility] [address] [address] Aug, [facility] [address] [address] Aug, Neuropathy G62.9 [facility] [address] [address] Aug, [facility] [address] [address] Jul, Non-recurrent acute suppurative otitis m edia of left ear without spontaneous rupture of tympanic membrane H66.002 [facility] [address] [address] Jul, Neuropathy G62.9 [facility] [address] [address] Jun, [facility] [address] [address] Jun, [facility] [address] [address] Jun, Neuropathy G62.9 [facility] [address] [address] Jun, [facility] [address] [address] Jun, [facility] [address] [address] Jun, Lumbar neuritis M54.16 [place] [address] [address] May, Neuropathy G62.9 [place] [address] [address] May, [facility] [address] [address] May, Neuropathy G62.9 and Hypertension, benig n I10 [place] [address] [address] Apr, Polyneuropathy G62.9 and Hypertension, b enign I10 [place] [address] [address] 17 Mar, 2018 Chronic pain syndrome G89.4 and Hyperten shalini, benign I10 [place] [address] [address] 11 Mar, 2018 Polyneuropathy G62.9 and Hypertension, b enign I10 [place] [address] [address] Feb, [facility] [address] [address] Feb, Hypertension, benign I10 [place] [address] [address] Feb, Hypertension, benign I10 ; Polyneuropath y G62.9 and Primary insomnia F51.01 [facility] [address] [address] 17 Jan, 2018 Hypertension, benign I10 and Polyneuropa thy G62.9 [facility] [id number] [place] [address] Jan, Hypertension, benign I10 and Neuropathy G62.9 [facility] [address] [address] Jan, [facility] [address] [address] Dec, Polyneuropathy G62.9 [facility] [address] [address] Dec, Mood disorder F39 [facility] [address] [address] November, Polyneuropathy G62.9 [facility] [address] [address] November, Medicare annual wellness visit, initial Z00.00 [facility] [address] [address] November, Mood disorder F39 [facility] [address] [address] Oct, Polyneuropathy G62.9 [facility] [address] [address] Oct, [facility] [address] [address] Oct, [facility] [address] [address] Oct, Mood disorder F39 ; Attention to urostom y Z43.6 ; Chronic pain syndrome G89.4 and Polyneuropathy G62.9 [facility] [address] [address] Sep, Polyneuropathy G62.9 [facility] [address] [address] Sep, [facility] [address] [address] Sep, Polyneuropathy G62.9 [facility] [address] [address] Aug, Polyneuropathy G62.9 [facility] [address] [address] Aug, Malignant neoplasm of colon, unspecified part of colon C18.9 and Polyneuropathy G62.9 [facility] [address] [address] Aug, Neuropathy G62.9 and Polyneuropathy G62. 9 [facility] [address] [address] Jul, Encounter for drug screening Z02.83 [facility] [address] [address] Jul, Polyneuropathy G62.9 [facility] [address] [address] Jul, [facility] [address] [address] Jul, Neuropathy G62.9 and Anxiety F41.9 [facility] [address] [address] Jul, [facility] [address] [address] Jul, [facility] [address] [address] Jul, [facility] [address] [address] Jul, Polyneuropathy G62.9 [facility] [address] [address] Jul, [facility] [address] [address] Jun, [facility] [address] [address] Jun, [facility] [address] [address] Jun, [facility] [address] [address] Jun, Encounter for dental examina tion Z01.20 [facility] [address] [address] Jun, Polyneuropathy G62.9 and Anxiety F41.9 [place] [address] [address] Jun, [facility] [address] [place] [address] May, Dental examination Z01.20 [facility] [address] [address] May, Polyneuropathy G62.9 [place] [address] [address] Apr, Polyneuropathy G62.9 [place] [address] [address] Apr, Polyneuropathy G62.9 [place] [address] [address] Apr, Hypertension, benign I10 ; Polyneuropath y G62.9 and Anxiety F41.9 [facility] [address] [address] Apr, Primary insomnia F51.01 and Polyneuropat hy G62.9 [facility] [address] [address] Apr, Primary insomnia F51.01 and Polyneuropat hy G62.9 [facility] [address] [id number] [place] [address] Mar, Primary insomnia F51.01 [facility] [address] [id number] [place] [address] Mar, [facility] [address] [id number] [place] [address] Mar, Polyneuropathy G62.9 [facility] [address] [id number] [place] [address] Feb, Primary insomnia F51.01 [facility] [address] [address] Feb, [facility] [address] [address] Feb, [facility] [address] [address] Feb, Polyneuropathy G62.9 [facility] [address] [id number] [place] [address] Feb, Primary insomnia F51.01 [facility] [id number] [place] [address] Jan, [facility] [id number] [place] [address] Jan, [facility] [address] [address] Dec, [facility] [address] [id number] [place] [address] Dec, Primary insomnia F51.01 [facility] [id number] [place] [address] Dec, Primary insomnia F51.01 [facility] [id number] [place] [address] Dec, [facility] [address] [address] Dec, [facility] [id number] [place] [address] Dec, [facility] [address] [address] Dec, [facility] [id number] [place] [address] November, Primary insomnia F51.01 and Polyneuropat hy G62.9 [facility] [address] [address] November, [facility] [address] [address] November, Abdominal pain, left lower quadrant R10. 32 [facility] [id number] [place] [address] November, [facility] [address] [address] Oct, [facility] [id number] [place] [address] Oct, Abdominal pain, left lower quadrant R10. 32 ; H/O malignant carcinoid tumor of rectum Z85.040 and Neuropathy G62.9 [facility] [id number] [place] [address] Oct, [facility] [id number] [place] [address] Sep, [facility] [id number] [id number] Sep, [facility] [id number] [place] [address] Sep, [facility] [id number] [place] [address] Aug, [facility] [id number] [place] [address] Aug, [facility] [address] [place] [address] Aug, Abdominal pain, left lower quadrant R10. 32 ; Neuropathy G62.9 and Anxiety F41.9 [facility] [address] [facility] [place] [address] Jul, [facility] [address] [address] Jul, [facility] [address] [facility] [id number] [place] [address] Jul, [facility] [address] [address] Jul, [facility] [address] [address] Jul, [facility] [address] [address] Jun, [facility] [address] [address] May, [facility] [address] [address] May, [facility] [address] [address] Apr, [facility] [address] [address] Apr, Muscle spasms of both lower extremities M62.838 and Cellulitis, unspecified cellulitis site L03.90 [facility] [address] [address] Apr, [facility] [address] [address] Mar, Generalized abdominal pain R10.84 [facility] [address] [address] 20 Mar, 2016 [facility] [address] [address] 14 Mar, 2016 [facility] [address] [place] [address] 14 Mar, 2016 [facility] [address] [address] 13 Mar, 2016 [facility] [address] [address] 12 Mar, 2016 [facility] [address] [address] 09 Mar, 2016 [facility] [address] [address] 06 Mar, 2016 [facility] [address] [address] Feb, Other specified diseases of anus and rec wilton K62.89 [facility] [address] [address] Feb, [facility] [address] [address] Feb, Dizziness R42 [facility] [id number] [place] [address] Feb, [facility] [address] [address] Jan, Polyneuropathy G62.9 [facility] [address] [address] Jan, Other specified diseases of anus and rec wilton K62.89 [facility] [id number] [place] [address] Jan, [facility] [address] [facility] [id number] [address] [place] [address] Jan, [facility] [address] [address] Jan, [facility] [address] [address] Jan, Dizziness R42 [facility] [address] [address] Dec, [facility] [id number] [place] [address] Dec, [facility] [id number] [place] [address] Dec, [facility] [id number] [place] [address] Dec, Dizziness R42 [facility] [id number] [place] [address] November, [facility] [id number] [place] [address] Oct, [facility] [id number] [place] [address] Oct, [facility] [id number] [place] [address] Oct, [facility] [id number] [place] [address] Oct, [facility] [id number] [place] [address] Sep, [facility] [id number] [place] [address] Sep, Primary insomnia F51.01 [facility] [id number] [place] [address] Sep, Primary insomnia F51.01 [facility] [id number] [place] [address] Sep, [facility] [id number] [place] [address] Aug, [facility] [id number] [place] [address] Aug, [facility] [id number] [place] [address] Aug, Primary insomnia F51.01 ; Mood disorder F39 ; Nausea and vomiting, unspecified intactability, vomiting of unspecified type R11.2 and Diarrhea R19.7 [facility] [address] [address] 15 Aug, 2015 [facility] [address] [address] 05 Aug, 2015 Folliculitis L73.9 [facility] [address] [address] Aug, [facility] [address] [address] Aug, [facility] [address] [address] Jul, Folliculitis L73.9 [facility] [address] [address] Jul, [facility] [address] [address] Jun, Folliculitis L73.9 [facility] [address] [address] Jun, [facility] [address] [address] May, Polyneuropathy G62.9 [facility] [address] [address] May, Other specified diseases of anus and rec wilton K62.89 [facility] [address] [address] May, [facility] [address] [address] May, Primary insomnia F51.01 [facility] [address] [address] May, [facility] [address] [address] May, [facility] [address] [address] Apr, Other specified diseases of anus and rec wilton K62.89 ; Chronic fatigue R53.82 ; Urinary tract infection, site not specified N39.0 and Enterococcus as the cause of diseases classified elsewhere B95.2 [facility] [id number] [place] [address] 16 Apr, 2015 [facility] [address] [address] Apr, [facility] [address] [address] Apr, Unspecified inflammatory and toxic neuro carol 357.9 [facility] [address] [address] Apr, [facility] [address] [address] Mar, [facility] [address] [address] 23 Mar, 2015 [facility] [address] [address] 17 Mar, 2015 [facility] [address] [address] 14 Mar, 2015 Unspecified inflammatory and toxic neuro carol 357.9 [facility] [address] [address] 12 Mar, 2015 [facility] [address] [address] Mar, [facility] [address] [address] Mar, [facility] [address] [address] Mar, [facility] [address] [address] Feb, [facility] [address] [address] Feb, [facility] [id number] [place] [address] Feb, [facility] [id number] [place] [address] Jan, [facility] [id number] [place] [address] Jan, Nausea 787.02 and Neuropathy 355.9 [facility] [id number] [place] [address] Jan, [facility] [id number] [place] [address] Jan, [facility] [id number] [place] [address] Jan, [facility] [address] [id number] [place] [id number] Jan, Dental examination V72.2 [facility] [address] [id number] [place] [address] Jan, [facility] [address] [id number] [place] [address] Dec, [facility] [address] [id number] [place] [address] Dec, [facility] [address] [id number] [place] [address] Dec, Neuropathy 355.9 [facility] [address] [id number] [place] [address] November, [facility] [address] [id number] [place] [address] November, [facility] [id number] [place] [address] November, [facility] [address] [id number] [place] [address] 14 Oct, 2014 [facility] [id number] [place] [address] Oct, [facility] [address] [id number] [place] [address] Sep, [facility] [address] [id number] [place] [address] Sep, [facility] [address] [id number] [place] [address] Sep, [facility] [address] [id number] [place] [address] Sep, [facility] [address] [id number] [place] [address] Sep, [facility] [address] [id number] [place] [address] Sep, [facility] [address] [id number] [place] [address] Sep, [facility] [address] [id number] [place] [address] Sep, [facility] [address] [id number] [place] [address] Aug, 2014 [facility] [address] [id number] [place] [address] Aug, 2014 [facility] [address] [id number] [place] [address] Aug, 2014 [facility] [address] [id number] [place] [address] Aug, 2014 [facility] [address] [id number] [place] [address] Aug, 2014 [facility] [address] [id number] [place] [address] Aug, 2014 [facility] [address] [id number] [place] [address] Aug, 2014 [facility] [address] [id number] [place] [address] Aug, 2014 [facility] [address] [id number] [place] [address] Jul, [facility] [address] [id number] [place] [address] Jul, [facility] [address] [id number] [place] [address] Jun, [facility] [address] [id number] [place] [address] Jun, [facility] [address] [id number] [place] [address] Jun, [facility] [address] [id number] [place] [address] Jun, [facility] [place] [facility] [address] [id number] [place] [address] Jun, [facility] [place] [facility] [address] [id number] [place] [address] Jun, [facility] [place] [facility] [address] [id number] [place] [address] Jun, [facility] [place] [facility] [address] [id number] [place] [address] Jun, [facility] [place] [facility] [address] [id number] [place] [address] Jun, [facility] [place] [facility] [address] [id number] [place] [address] Jun, [facility] [place] [facility] [address] [id number] [place] [address] Jun, [facility] [place] [facility] [address] [id number] [place] [address] May, [facility] [place] [facility] [id number] [place] [address] May, [facility] [place] [facility] [address] [id number] [place] [address] May, [facility] [place] [facility] [address] [id number] [place] [address] May, [facility] [place] [facility] [address] [id number] [place] [address] May, [facility] [place] [facility] [address] [id number] [place] [address] May, [facility] [place] [facility] [address] [id number] [place] [address] May, [facility] [place] [facility] [address] [id number] [place] [address] May, [facility] [place] [facility] [address] [id number] [place] [address] May, [facility] [place] [facility] [address] [id number] [place] [address] Apr, [facility] [place] [facility] [address] [id number] [place] [address] Apr, [facility] [place] [facility] [address] [id number] [place] [address] Apr, [facility] [place] [facility] [address] [id number] [place] [address] Apr, [facility] [place] [facility] [address] [id number] [place] [address] Apr, [facility] [place] [facility] [address] [id number] [place] [address] Mar, [facility] [place] [facility] [address] [id number] [place] [address] Mar, [facility] [place] [facility] [address] [id number] [place] [address] Feb, [facility] [place] [facility] [address] [id number] [place] [address] Feb, [facility] [place] [facility] [address] [id number] [place] [address] Feb, [facility] [place] [facility] [address] [id number] [place] [address] Feb, [facility] [place] [facility] [address] [id number] [place] [address] Feb, [facility] [place] [facility] [address] [id number] [facility] [place] [address] Feb, [facility] [place] [facility] [address] [id number] [place] [address] Jan, [facility] [place] [facility] [address] [facility] [id number] [facility] [place] [address] Jan, [facility] [place] [facility] [address] [id number] [facility] [place] [address] Jan, [facility] [place] [facility] [address] [facility] [id number] [facility] [place] [address] Jan, [facility] [place] [facility] [address] [id number] [place] [address] Jan, [facility] [place] [facility] [address] [facility] [id number] [place] [address] Jan, [facility] [place] [facility] [address] [facility] [id number] [facility] [place] [address] Jan, [facility] [place] [facility] [address] [facility] [id number] [facility] [place] [address] Jan, [facility] [place] [facility] [address] [facility] [id number] [facility] [place] [address] Jan, [facility] [place] [facility] [address] [facility] [id number] [place] [address] Jan, [facility] [place] [facility] [address] [facility] [id number] [place] [address] Jan, [facility] [place] [facility] [address] [facility] [id number] [facility] [place] [address] Dec, [facility] [place] [facility] [address] [id number] [place] [address] Dec, [facility] [place] [facility] [address] [facility] [id number] [place] [address] Dec, [facility] [place] [facility] [address] [facility] [id number] [facility] [place] [address] Dec, [facility] [place] [facility] [address] [facility] [id number] [place] [address] Dec, [facility] [place] [facility] [address] [id number] [place] [address] Dec, [facility] [place] [facility] [address] [facility] [id number] [place] [address] November, [facility] [place] [facility] [address] [id number] [place] [address] November, [facility] [place] [facility] [address] [id number] [place] [address] November, [facility] [place] [facility] [address] [id number] [place] [address] November, [facility] [place] [facility] [address] [id number] [place] [address] November, [facility] [place] [facility] [address] [id number] [place] [address] November, [facility] [place] [facility] [address] [id number] [place] [address] Oct, [facility] [place] [facility] [address] [id number] [place] [address] Oct, [facility] [place] [facility] [address] [id number] [place] [address] Oct, [facility] [place] [facility] [address] [id number] [place] [address] Oct, [facility] [place] [facility] [address] [id number] [place] [address] Sep, [facility] [place] [facility] [address] [facility] [id number] [place] [address] 17 Sep, 2013 [facility] [place] [facility] [address] [id number] [place] [address] Sep, [facility] [place] [facility] [address] [id number] [place] [address] Sep, [facility] [place] [facility] [address] [id number] [place] [address] Sep, [facility] [place] [facility] [address] [facility] [id number] [place] [address] Aug, [facility] [address] [facility] [id number] [place] [address] Aug, [facility] [place] [facility] [address] [facility] [id number] [place] [address] Aug, [facility] [place] [facility] [address] [id number] [place] [address] Aug, [facility] [place] [facility] [address] [facility] [id number] [place] [address] Aug, [facility] [address] [place] [id number] May, [facility] [place] [facility] [address] [id number] [place] [address] May, [facility] [address] [id number] [place] [address] May, [facility] [place] [facility] [address] [id number] [place] [address] May, [facility] [place] [facility] [address] [id number] [place] [address] May, [facility] [place] [facility] [address] [id number] [place] [address] Apr, [facility] [place] [facility] [address] [id number] [place] [address] Apr, [facility] [place] [facility] [address] [id number] [place] [address] Apr, [facility] [place] [facility] [address] [id number] [place] [address] Apr, [facility] [place] [facility] [address] [id number] [place] [address] Apr, [facility] [place] [facility] [address] [id number] [place] [address] Apr, [facility] [place] [facility] [address] [id number] [place] [address] Apr, [facility] [place] [facility] [address] [id number] [facility] [place] [address] 28 Mar, 2013 [facility] [place] [facility] [address] [facility] [id number] [facility] [place] [address] Mar, [facility] [place] [facility] [address] [id number] [place] [address] 24 Mar, 2013 [facility] [place] [facility] [address] [id number] [place] [address] 16 Mar, 2013 [facility] [place] [facility] [address] [facility] [id number] [facility] [place] [address] Mar, [facility] [place] [facility] [address] [id number] [place] [address] Mar, [facility] [place] [facility] [address] [id number] [place] [address] Feb, [facility] [place] [facility] [address] [id number] [place] [address] Feb, [facility] [place] [facility] [address] [id number] [place] [address] Feb, [facility] [place] [facility] [address] [id number] [place] [address] Feb, [facility] [place] [facility] [address] [id number] [place] [address] Feb, [facility] [place] [facility] [address] [id number] [place] [address] Feb, [facility] [place] [facility] [address] [id number] [place] [address] Jan, [facility] [place] [facility] [address] [id number] [place] [address] Dec, [facility] [place] [facility] [address] [id number] [place] [address] Dec, [facility] [place] [facility] [address] [id number] [place] [address] Dec, [facility] [place] [facility] [address] [id number] [place] [address] Dec, [facility] [place] [facility] [address] [facility] [id number] [place] [address] Dec, [facility] [place] [facility] [address] [id number] [place] [address] Dec, [facility] [place] [facility] [address] [id number] [place] [address] Dec, [facility] [place] [facility] [address] [id number] [place] [address] Dec, [facility] [place] [facility] [address] [id number] [place] [address] Dec, [facility] [place] [facility] [address] [id number] [place] [address] November, [facility] [place] [facility] [address] [id number] [place] [address] November, [facility] [place] [facility] [address] [id number] [place] [address] Oct, [facility] [place] [facility] [address] [id number] [place] [address] Sep, [facility] [place] [facility] [address] [id number] [place] [address] Sep, [facility] [place] [facility] [address] [id number] [place] [address] Sep, [facility] [place] [facility] [address] [id number] [place] [address] Sep, [facility] [place] [facility] [address] [id number] [place] [address] Aug, [facility] [place] [facility] [address] [id number] [place] [address] Aug, [facility] [place] [facility] [address] [id number] [place] [address] Jul, [facility] [place] [facility] [address] [id number] [place] [address] Jul, [facility] [address] [id number] [place] [address] Jul, [facility] [address] [id number] [place] [address] Sep, [facility] [address] [id number] [place] [address] Sep, [facility] [address] [id number] [place] [address] Sep, IMMUNIZATIONS No Known Immunizations SOCIAL HISTORY [...] bowel obstruction, Dehydration -[facility] 01/01/17 Hospitalization History [facility]- UTI/Sepsis 01/18/2018 Hospitalization History [facility] - infection 4 days 05/2018
--- OUTSIDE RECORDS SUMMARY | 2020-01-14 23:27 | XMS REPORT ---
Author Author Melvin BENTLEY Organization [facility] Address [address] [place] [address] Care Team Providers Care Hammerer Helper Name Role Phone LINDA BENTLEY Unavailable PROBLEMS Type Condition ICD9-CM Code CXA89-GQ Code Onset Dates Condition S tatus SNOMED Code Problem Incontinence of feces, unspecified fecal incontinence type R15.9 Active 73313726 Problem Primary insomnia F51.01 Active 193 610616 Problem Hydronephrosis with ureteral stricture, not else where classified N13.1 Active 63772386 Problem Chronic fatigue, unspecified R53.82 A ctive 637586878 Problem Hypertension, benign I10 Active 96691885 Problem Mood disorder F39 Active 677870 05 Problem Neuropathy G62.9 Active 401309272 Problem Chronic pain syndrome G89.4 Active 822612491 Problem Abdominal pain, left lower quadrant R10.32 Active 318563375 Problem 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 9 [place] [id number] [place] [address] 14 Jul, 2019 Primary insomnia F51.01 ; Neuropathy G62 .9 and Encounter for Medicare annual wellness exam Z00.00 [place] [address] [address] Jun, Neuropathy G62.9 and Encounter for Medic are annual wellness exam Z00.00 [facility] [address] [address] 18 Jun, 2019 Primary insomnia F51.01 [facility] [address] [address] Jun, Primary insomnia F51.01 ; Encounter for Medicare annual wellness exam Z00.00 and Neuropathy G62.9 [facility] [address] [address] Jun, Malignant neoplasm of colon, unspecified part of colon C18.9 and Chronic fatigue, unspecified R53.82 [facility] [address] [address] May, Neuropathy G62.9 and Encounter for Medic are annual wellness exam Z00.00 [facility] [address] [address] 15 May, 2019 Primary insomnia F51.01 [facility] [address] [address] May, Neuropathy G62.9 and Anxiety F41.9 [facility] [address] [address] Apr, Encounter for Medicare annual wellness e xam Z00.00 [place] [address] [address] Apr, Neuropathy G62.9 and Encounter for Medic are annual wellness exam Z00.00 [facility] [address] [address] Mar, Neuropathy G62.9 and Primary insomnia F5 1.01 [facility] [address] [address] Mar, [facility] [address] [address] Feb, Primary insomnia F51.01 ; Neuropathy G62 .9 and Encounter for Medicare annual wellness exam Z00.00 [facility] [address] [address] Feb, Neuropathy G62.9 and Encounter for [facility] annual wellness exam Z00.00 [facility] [address] [address] Feb, Primary insomnia F51.01 and High risk me dication use Z79.899 [facility] [address] [address] Jan, [place] [address] [address] Jan, Neuropathy G62.9 [place] [address] [address] Dec, [place] [address] [address] Dec, Encounter for Medicare annual wellness e xam Z00.00 and Neuropathy G62.9 [facility] [address] [address] November, [place] [address] [address] November, Encounter for Medicare annual wellness e xam Z00.00 ; 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 ; Mood disorder F39 ; Chronic fatigue, unspecified R53.82 and Neuropathy G62.9 [facility] [id number] [place] [address] November, Neuropathy G62.9 [facility] [address] [address] Oct, Neuropathy G62.9 [facility] [address] [address] Oct, Hypertension, benign I10 and Anxiety F41 .9 [facility] [address] [address] Oct, [facility] [address] [address] Oct, [facility] [address] [address] Oct, [facility] [address] [address] Oct, Neuropathy G62.9 [facility] [address] [address] Sep, [facility] [address] [address] Sep, Neuropathy G62.9 [facility] [address] [address] Sep, [facility] [address] [address] Sep, H/O malignant carcinoid tumor of rectum Z85.040 and Primary insomnia F51.01 [facility] [address] [address] Aug, [facility] [address] [address] Aug, Neuropathy G62.9 [facility] [address] [address] Aug, [facility] [address] [address] Jul, Non-recurrent acute suppurative otitis m edia of left ear without spontaneous rupture of tympanic membrane H66.002 [facility] [address] [address] Jul, Neuropathy G62.9 [facility] [address] [address] Jun, [facility] [address] [address] Jun, [place] [address] [address] Jun, Neuropathy G62.9 [place] [address] [address] Jun, [facility] [address] [address] Jun, [place] [address] [address] Jun, Lumbar neuritis M54.16 [place] [address] [address] May, Neuropathy G62.9 [place] [address] [address] May, [place] [address] [address] May, Neuropathy G62.9 and Hypertension, benig n I10 [place] [address] [address] 09 Apr, 2018 Polyneuropathy G62.9 and Hypertension, b enign I10 [place] [address] [address] 17 Mar, 2018 Chronic pain syndrome G89.4 and Hyperten shalini, benign I10 [place] [address] [address] Mar, Polyneuropathy G62.9 and Hypertension, b enign I10 [place] [address] [address] Feb, [place] [address] [address] Feb, Hypertension, benign I10 [place] [address] [address] 15 Feb, 2018 Hypertension, benign I10 ; Polyneuropath y G62.9 and Primary insomnia F51.01 [place] [address] [address] Jan, Hypertension, benign I10 and Polyneuropa thy G62.9 [facility] [address] [address] Jan, Hypertension, benign I10 and Neuropathy G62.9 [facility] [address] [address] Jan, [facility] [address] [address] Dec, Polyneuropathy G62.9 [facility] [address] [address] Dec, Mood disorder F39 [facility] [address] [address] November, Polyneuropathy G62.9 [facility] [address] [address] November, Medicare annual wellness visit, initial Z00.00 [facility] [address] [address] November, Mood disorder F39 [facility] [address] [address] Oct, Polyneuropathy G62.9 [facility] [address] [address] Oct, [facility] [address] [address] Oct, [facility] [address] [address] Oct, Mood disorder F39 ; Attention to urostom y Z43.6 ; Chronic pain syndrome G89.4 and Polyneuropathy G62.9 [facility] [id number] [place] [address] Sep, Polyneuropathy G62.9 [facility] [address] [address] Sep, [facility] [id number] [place] [address] Sep, Polyneuropathy G62.9 [facility] [id number] [place] [address] Aug, Polyneuropathy G62.9 [facility] [address] [address] Aug, Malignant neoplasm of colon, unspecified part of colon C18.9 and Polyneuropathy G62.9 [facility] [address] [address] Aug, Neuropathy G62.9 and Polyneuropathy G62. 9 [facility] [address] [address] Jul, Encounter for drug screening Z02.83 [facility] [address] [address] Jul, Polyneuropathy G62.9 [facility] [address] [address] Jul, [facility] [address] [address] Jul, Neuropathy G62.9 and Anxiety F41.9 [facility] [address] [address] Jul, [facility] [address] [address] Jul, [facility] [address] [address] Jul, [facility] [address] [address] Jul, Polyneuropathy G62.9 [facility] [address] [address] Jul, [facility] [address] [address] Jun, [facility] [address] [address] Jun, [facility] [address] [address] Jun, [facility] [id number] [place] [address] Jun, Encounter for dental examina tion Z01.20 [facility] [address] [address] Jun, Polyneuropathy G62.9 and Anxiety F41.9 [facility] [address] [address] Jun, [facility] [id number] [place] [address] May, Dental examination Z01.20 [facility] [address] [address] May, Polyneuropathy G62.9 [facility] [address] [address] Apr, Polyneuropathy G62.9 [facility] [address] [address] Apr, Polyneuropathy G62.9 [facility] [address] [address] Apr, Hypertension, benign I10 ; Polyneuropath y G62.9 and Anxiety F41.9 [facility] [address] [address] Apr, Primary insomnia F51.01 and Polyneuropat hy G62.9 [facility] [address] [address] Apr, Primary insomnia F51.01 and Polyneuropat hy G62.9 [facility] [address] [address] Mar, Primary insomnia F51.01 [facility] [address] [id number] [place] [address] Mar, [facility] [address] [id number] [place] [address] Mar, Polyneuropathy G62.9 [facility] [id number] [place] [address] Feb, Primary insomnia F51.01 [facility] [address] [id number] [place] [address] Feb, [facility] [id number] [place] [address] Feb, [facility] [id number] [place] [address] Feb, Polyneuropathy G62.9 [facility] [id number] [place] [address] Feb, Primary insomnia F51.01 [facility] [address] [id number] [place] [address] Jan, [facility] [id number] [place] [address] Jan, [facility] [id number] [place] [address] Dec, [facility] [id number] [place] [address] Dec, Primary insomnia F51.01 [facility] [address] [id number] [place] [address] Dec, Primary insomnia F51.01 [facility] [id number] [place] [address] Dec, [facility] [id number] [place] [address] Dec, [facility] [id number] [place] [address] Dec, [facility] [id number] [place] [address] Dec, [facility] [address] [address] November, Primary insomnia F51.01 and Polyneuropat hy G62.9 [facility] [address] [address] November, [facility] [address] [address] November, Abdominal pain, left lower quadrant R10. 32 [facility] [address] [address] November, [facility] [address] [address] Oct, [facility] [address] [address] Oct, Abdominal pain, left lower quadrant R10. 32 ; H/O malignant carcinoid tumor of rectum Z85.040 and Neuropathy G62.9 [facility] [address] [address] Oct, [facility] [address] [address] Sep, [facility] [address] [id number] [id number] Sep, [facility] [id number] [place] [address] Sep, [facility] [id number] [place] [address] Aug, [facility] [address] [address] Aug, [facility] [address] [address] Aug, Abdominal pain, left lower quadrant R10. 32 ; Neuropathy G62.9 and Anxiety F41.9 [facility] [address] [place] [address] Jul, [facility] [address] [address] Jul, [facility] [address] [facility] [id number] [place] [address] Jul, [facility] [address] [address] Jul, [facility] [address] [address] Jul, [facility] [address] [address] Jun, [facility] [address] [address] May, [facility] [address] [address] May, [facility] [address] [address] Apr, [facility] [address] [address] Apr, Muscle spasms of both lower extremities M62.838 and Cellulitis, unspecified cellulitis site L03.90 [facility] [address] [address] Apr, [facility] [address] [address] 23 Mar, 2016 Generalized abdominal pain R10.84 [facility] [address] [address] 20 Mar, 2016 [facility] [address] [address] 14 Mar, 2016 [facility] [address] [address] 14 Mar, 2016 [facility] [address] [place] [address] 13 Mar, 2016 [facility] [address] [id number] [place] [address] 12 Mar, 2016 [facility] [id number] [place] [address] Mar, [facility] [address] [id number] [place] [address] Mar, [facility] [id number] [place] [address] Feb, Other specified diseases of anus and rec wilton K62.89 [facility] [id number] [place] [address] Feb, [facility] [id number] [place] [address] Feb, Dizziness R42 [facility] [id number] [place] [address] Feb, [facility] [id number] [place] [address] Jan, Polyneuropathy G62.9 [facility] [id number] [place] [address] Jan, Other specified diseases of anus and rec wilton K62.89 [facility] [address] [id number] [place] [address] Jan, [facility] [address] [facility] [id number] [place] [address] Jan, [facility] [address] [id number] [place] [address] Jan, [facility] [id number] [place] [address] Jan, Dizziness R42 [facility] [address] [id number] [place] [address] Dec, [facility] [id number] [place] [address] Dec, [facility] [id number] [place] [address] Dec, [facility] [id number] [place] [address] Dec, Dizziness R42 [facility] [id number] [place] [address] November, [facility] [id number] [place] [address] Oct, [facility] [id number] [place] [address] Oct, [facility] [id number] [place] [address] Oct, [facility] [id number] [place] [address] Oct, [facility] [id number] [place] [address] Sep, [facility] [id number] [place] [address] Sep, Primary insomnia F51.01 [facility] [id number] [place] [address] Sep, Primary insomnia F51.01 [facility] [id number] [place] [address] Sep, [facility] [id number] [place] [address] Aug, [facility] [id number] [place] [address] Aug, [facility] [id number] [place] [address] Aug, Primary insomnia F51.01 ; Mood disorder F39 ; Nausea and vomiting, unspecified intactability, vomiting of unspecified type R11.2 and Diarrhea R19.7 [facility] [id number] [place] [address] 15 Aug, 2015 [facility] [address] [address] Aug, Folliculitis L73.9 [facility] [id number] [place] [address] Aug, [facility] [address] [address] Aug, [facility] [address] [address] Jul, Folliculitis L73.9 [facility] [address] [address] Jul, [facility] [address] [address] Jun, Folliculitis L73.9 [facility] [address] [address] Jun, [facility] [address] [address] May, Polyneuropathy G62.9 [facility] [address] [address] May, Other specified diseases of anus and rec wilton K62.89 [facility] [address] [address] May, [facility] [address] [address] May, Primary insomnia F51.01 [facility] [address] [address] May, [facility] [address] [address] May, [facility] [address] [address] Apr, Other specified diseases of anus and rec wilton K62.89 ; Chronic fatigue R53.82 ; Urinary tract infection, site not specified N39.0 and Enterococcus as the cause of diseases classified elsewhere B95.2 [facility] [id number] [place] [address] 16 Apr, 2015 [facility] [id number] [place] [address] 15 Apr, 2015 [facility] [id number] [place] [address] 14 Apr, 2015 Unspecified inflammatory and toxic neuro carol 357.9 [facility] [id number] [place] [address] 05 Apr, 2015 [facility] [id number] [place] [address] 26 Mar, 2015 [facility] [id number] [place] [address] 23 Mar, 2015 [facility] [id number] [place] [address] 17 Mar, 2015 [facility] [id number] [place] [address] 14 Mar, 2015 Unspecified inflammatory and toxic neuro carol 357.9 [facility] [id number] [place] [address] 12 Mar, 2015 [facility] [id number] [place] [address] 11 Mar, 2015 [facility] [id number] [place] [address] 11 Mar, 2015 [facility] [id number] [place] [address] 10 Mar, 2015 [facility] [id number] [place] [address] Feb, [facility] [id number] [place] [address] Feb, [facility] [id number] [place] [address] Feb, [facility] [id number] [place] [address] Jan, [facility] [id number] [place] [address] Jan, Nausea 787.02 and Neuropathy 355.9 [facility] [id number] [place] [address] Jan, [facility] [id number] [place] [address] Jan, [facility] [id number] [place] [address] Jan, [facility] [id number] [place] [id number] Jan, Dental examination V72.2 [facility] [id number] [place] [address] Jan, [facility] [id number] [place] [address] Dec, [facility] [id number] [place] [address] Dec, [facility] [id number] [place] [address] Dec, Neuropathy 355.9 [facility] [id number] [place] [address] November, [facility] [id number] [place] [address] November, [facility] [id number] [place] [address] November, [facility] [id number] [place] [address] Oct, [facility] [id number] [place] [address] Oct, [facility] [id number] [place] [address] Sep, [facility] [address] [id number] [place] [address] Sep, [facility] [address] [id number] [place] [address] Sep, [facility] [address] [id number] [place] [address] Sep, [facility] [address] [id number] [place] [address] Sep, [facility] [address] [id number] [place] [address] Sep, [facility] [address] [id number] [place] [address] Sep, [facility] [address] [id number] [place] [address] Sep, [facility] [address] [id number] [place] [address] Aug, 2014 [facility] [address] [id number] [place] [address] Aug, 2014 [facility] [address] [id number] [place] [address] Aug, 2014 [facility] [address] [id number] [place] [address] Aug, 2014 [facility] [address] [id number] [place] [address] Aug, 2014 [facility] [address] [id number] [place] [address] Aug, 2014 [facility] [address] [id number] [place] [address] Aug, 2014 [facility] [address] [id number] [place] [address] Aug, 2014 [facility] [address] [id number] [place] [address] Jul, [facility] [address] [id number] [place] [address] Jul, [facility] [address] [id number] [place] [address] Jun, [facility] [address] [id number] [place] [address] Jun, [facility] [address] [id number] [place] [address] Jun, [facility] [address] [id number] [place] [address] Jun, [facility] [address] [id number] [place] [address] Jun, [facility] [address] [id number] [place] [address] Jun, [facility] [address] [id number] [place] [address] Jun, [facility] [address] [id number] [place] [address] Jun, [facility] [address] [id number] [place] [address] Jun, [facility] [address] [id number] [place] [place] [address] Jun, [facility] [place] [facility] [address] [id number] [place] [address] Jun, [facility] [place] [facility] [address] [id number] [place] [address] May, [facility] [place] [facility] [address] [id number] [place] [address] May, [facility] [place] [facility] [id number] [place] [address] May, [facility] [place] [facility] [address] [id number] [place] [address] May, [facility] [place] [facility] [address] [id number] [place] [address] May, [facility] [place] [facility] [address] [facility] [id number] [place] [address] May, [facility] [place] [facility] [address] [id number] [place] [address] May, [facility] [place] [facility] [address] [id number] [place] [address] May, [facility] [place] [facility] [address] [id number] [place] [address] May, [facility] [place] [facility] [address] [id number] [place] [address] Apr, [facility] [place] [facility] [address] [id number] [place] [address] Apr, [facility] [place] [facility] [address] [id number] [place] [address] Apr, [facility] [place] [facility] [address] [id number] [place] [address] Apr, [facility] [place] [facility] [address] [id number] [place] [address] Apr, [facility] [place] [facility] [address] [id number] [place] [address] Mar, [facility] [place] [facility] [address] [id number] [place] [address] Mar, [facility] [place] [facility] [address] [id number] [place] [address] Feb, [facility] [place] [facility] [address] [id number] [place] [address] Feb, [facility] [place] [facility] [address] [id number] [place] [address] Feb, [facility] [place] [facility] [address] [id number] [place] [address] Feb, [facility] [place] [facility] [address] [id number] [place] [address] Feb, [facility] [place] [facility] [address] [id number] [place] [address] Feb, [facility] [place] [facility] [address] [id number] [place] [address] Jan, [facility] [place] [facility] [address] [facility] [id number] [place] [address] Jan, [facility] [place] [facility] [address] [facility] [id number] [place] [address] Jan, [facility] [place] [facility] [address] [id number] [place] [address] Jan, [facility] [place] [facility] [address] [facility] [id number] [place] [address] Jan, [facility] [place] [facility] [address] [id number] [place] [address] Jan, [facility] [place] [facility] [address] [facility] [id number] [place] [address] Jan, [facility] [place] [facility] [address] [facility] [id number] [place] [address] Jan, [facility] [place] [facility] [address] [facility] [id number] [place] [address] Jan, [facility] [place] [facility] [address] [id number] [place] [address] Jan, [facility] [place] [facility] [address] [facility] [id number] [place] [address] Jan, [facility] [place] [facility] [address] [facility] [id number] [place] [address] Dec, [facility] [place] [facility] [address] [facility] [id number] [place] [address] Dec, [facility] [place] [facility] [address] [id number] [place] [address] Dec, [facility] [place] [facility] [address] [facility] [id number] [place] [address] Dec, [facility] [place] [facility] [address] [facility] [id number] [place] [address] Dec, [facility] [place] [facility] [address] [id number] [place] [address] Dec, [facility] [place] [facility] [address] [id number] [place] [address] November, [facility] [place] [facility] [address] [id number] [place] [address] November, [facility] [place] [facility] [address] [id number] [place] [address] November, [facility] [place] [facility] [address] [id number] [place] [address] November, [facility] [place] [facility] [address] [id number] [place] [address] November, [facility] [place] [facility] [address] [id number] [place] [address] November, [facility] [place] [facility] [address] [id number] [place] [address] Oct, [facility] [place] [facility] [address] [id number] [place] [address] Oct, [facility] [place] [facility] [address] [id number] [place] [address] Oct, [facility] [place] [facility] [address] [id number] [place] [address] Oct, [facility] [place] [facility] [address] [id number] [place] [address] Sep, [facility] [place] [facility] [address] [id number] [place] [address] Sep, [facility] [place] [facility] [address] [id number] [place] [address] Sep, [facility] [place] [facility] [address] [id number] [place] [address] Sep, [facility] [place] [facility] [address] [id number] [place] [address] Sep, [facility] [place] [facility] [address] [id number] [place] [address] Aug, [facility] [place] [facility] [address] [facility] [id number] [place] [address] Aug, [facility] [address] [id number] [place] [address] Aug, [facility] [place] [facility] [address] [id number] [place] [address] Aug, [facility] [address] [id number] [place] [address] Aug, [facility], [place] [id number] May, [facility] [address] [id number] [place] [address] May, [facility] [place] [facility] [address] [id number] [place] [address] May, [facility] [address] [id number] [place] [address] May, [facility] [place] [facility] [address] [id number] [place] [address] May, [facility] [address] [id number] [place] [address] Apr, [facility] [place] [facility] [address] [id number] [place] [address] Apr, [facility] [place] [facility] [address] [id number] [place] [address] Apr, [facility] [place] [facility] [address] [id number] [place] [address] Apr, [facility] [place] [facility] [address] [id number] [place] [address] Apr, [facility] [place] [facility] [address] [id number] [place] [address] Apr, [facility] [place] [facility] [address] [id number] [place] [address] Apr, [facility] [place] [facility] [address] [id number] [place] [address] 28 Mar, 2012 [facility] [place] [facility] [address] [id number] [place] [address] 25 Mar, 2013 [facility] [place] [facility] [address] [facility] [id number] [place] [address] 24 Mar, 2013 [facility] [place] [facility] [address] [id number] [place] [address] 16 Mar, 2013 [facility] [place] [facility] [address] [id number] [place] [address] 12 Mar, 2013 [facility] [place] [facility] [address] [facility] [id number] [place] [address] Mar, [facility] [place] [facility] [address] [id number] [place] [address] Feb, [facility] [place] [facility] [address] [id number] [place] [address] Feb, [facility] [place] [facility] [address] [id number] [place] [address] Feb, [facility] [place] [facility] [address] [id number] [place] [address] Feb, [facility] [place] [facility] [address] [id number] [place] [address] Feb, [facility] [place] [facility] [address] [id number] [place] [address] Feb, [facility] [place] [facility] [address] [id number] [place] [address] Jan, [facility] [place] [facility] [address] [id number] [place] [address] Dec, [facility] [place] [facility] [address] [id number] [place] [address] Dec, [facility] [place] [facility] [address] [id number] [place] [address] Dec, [facility] [place] [facility] [address] [id number] [place] [address] Dec, [facility] [place] [facility] [address] [id number] [place] [address] Dec, [facility] [place] [facility] [address] [facility] [id number] [place] [address] Dec, [facility] [place] [facility] [address] [id number] [place] [address] Dec, [facility] [place] [facility] [address] [id number] [place] [address] Dec, [facility] [place] [facility] [address] [id number] [place] [address] Dec, [facility] [place] [facility] [address] [id number] [place] [address] November, [facility] [place] [facility] [address] [id number] [place] [address] November, [facility] [place] [facility] [address] [id number] [place] [address] Oct, [facility] [place] [facility] [address] [id number] [place] [address] Sep, [facility] [place] [facility] [address] [id number] [place] [address] Sep, [facility] [place] [facility] [address] [id number] [place] [address] Sep, [facility] [place] [facility] [address] [id number] [place] [address] Sep, [facility] [place] [facility] [address] [id number] [place] [address] Aug, [facility] [place] [facility] [address] [id number] [place] [address] Aug, [facility] [place] [facility] [address] [id number] [place] [address] Jul, [facility] [place] [facility] [address] [id number] [place] [address] Jul, [facility] [place] [facility] [address] [id number] [place] [address] Jul, [facility] [address] [facility] [id number] [place] [address] Sep, [facility] [address] [id number] [place] [address] Sep, [facility] [address] [facility] [id number] [place] [address] Sep, IMMUNIZATIONS No Known Immunizations SOCIAL HISTORY [...] bowel obstruction, Dehydration -[facility] 01/01/17 Hospitalization History [facility]- UTI/Sepsis 01/18/2018 Hospitalization History [facility] - infection 4 days 05/2018
[2020-01-14 23:28] LABS: BUN/CREATININE RATIO 12
--- OUTSIDE RECORDS SUMMARY | 2020-01-14 23:28 | XMS REPORT ---
Author Author Melvin BENTLEY Organization [facility] [place] Address [address] [place] [address] Care Team Providers Care Orientation & Mobility Specialist Name Role Phone LINDA BENTLEY Unavailable PROBLEMS Type Condition ICD9-CM Code [id number] Code Onset Dates Condition S tatus SNOMED Code Problem Incontinence of feces, unspecified fecal incontinence type R15.9 Active 38825018 Problem Primary insomnia F51.01 Active 193 808497 Problem Hydronephrosis with ureteral stricture, not else where classified N13.1 Active 03756424 Problem Chronic fatigue, unspecified R53.82 A ctive 944804176 Problem Hypertension, benign I10 Active 26274524 Problem Mood disorder F39 Active 448562 05 Problem Neuropathy G62.9 Active 464522333 Problem Chronic pain syndrome G89.4 Active 876423900 Problem Abdominal pain, left lower quadrant R10.32 Active 368939192 Problem 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 9 [facility] [id number] [place] [address] 14 Jul, 2019 Primary insomnia F51.01 ; Neuropathy G62 .9 and Encounter for Medicare annual wellness exam Z00.00 [facility] [address] [address] Jun, Neuropathy G62.9 and Encounter for Medic are annual wellness exam Z00.00 [facility] [place] [address] [address] 18 Jun, 2019 Primary insomnia F51.01 [facility] [place] [address] [address] Jun, Primary insomnia F51.01 ; Encounter for Medicare annual wellness exam Z00.00 and Neuropathy G62.9 [facility] [place] [address] [address] Jun, Malignant neoplasm of colon, unspecified part of colon C18.9 and Chronic fatigue, unspecified R53.82 [facility] [place] [address] [address] May, Neuropathy G62.9 and Encounter for Medic are annual wellness exam Z00.00 [facility] [place] [address] [address] 15 May, 2019 Primary insomnia F51.01 [facility] [place] [address] [address] May, Neuropathy G62.9 and Anxiety F41.9 [facility] [place] [address] [address] Apr, Encounter for Medicare annual wellness e xam Z00.00 [facility] [address] [address] Apr, Neuropathy G62.9 and Encounter for Medic are annual wellness exam Z00.00 [facility] [place] [address] [address] Mar, Neuropathy G62.9 and Primary insomnia F5 1.01 [facility] [place] [address] [address] Mar, [facility] [place] [address] [address] Feb, Primary insomnia F51.01 ; Neuropathy G62 .9 and Encounter for Medicare annual wellness exam Z00.00 [facility] [place] [address] [address] Feb, Neuropathy G62.9 and Encounter for [facility] annual wellness exam Z00.00 [facility] [place] [address] [address] Feb, Primary insomnia F51.01 and High risk me dication use Z79.899 [facility] [place] [address] [address] Jan, [facility] [address] [address] Jan, Neuropathy G62.9 [facility] [address] [address] Dec, [place] [address] [address] Dec, Encounter for Medicare annual wellness e xam Z00.00 and Neuropathy G62.9 [facility] [place] [address] [address] November, [facility] [address] [address] November, Encounter for Medicare annual wellness e xam Z00.00 ; 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 ; Mood disorder F39 ; Chronic fatigue, unspecified R53.82 and Neuropathy G62.9 [facility] [place] [id number] [place] [address] November, Neuropathy G62.9 [facility] [place] [address] [address] Oct, Neuropathy G62.9 [facility] [place] [address] [address] Oct, Hypertension, benign I10 and Anxiety F41 .9 [facility] [place] [address] [address] Oct, [facility] [place] [address] [address] Oct, [facility] [place] [address] [address] Oct, [facility] [place] [address] [address] Oct, Neuropathy G62.9 [facility] [place] [address] [address] Sep, [facility] [place] [address] [address] Sep, Neuropathy G62.9 [facility] [place] [address] [address] Sep, [facility] [place] [address] [address] Sep, H/O malignant carcinoid tumor of rectum Z85.040 and Primary insomnia F51.01 [facility] [place] [address] [address] Aug, [facility] [place] [address] [address] Aug, Neuropathy G62.9 [facility] [place] [address] [address] Aug, [facility] [place] [address] [address] Jul, Non-recurrent acute suppurative otitis m edia of left ear without spontaneous rupture of tympanic membrane H66.002 [facility] [place] [address] [address] Jul, Neuropathy G62.9 [facility] [place] [address] [address] Jun, [facility] [place] [address] [address] Jun, [place] [address] [address] Jun, Neuropathy G62.9 [place] [address] [address] Jun, [facility] [place] [address] [address] Jun, [place] [address] [address] Jun, Lumbar neuritis M54.16 [place] [address] [address] May, Neuropathy G62.9 [facility] [address] [address] May, [place] [address] [address] May, Neuropathy G62.9 and Hypertension, benig n I10 [place] [address] [address] 09 Apr, 2018 Polyneuropathy G62.9 and Hypertension, b enign I10 [place] [address] [address] 17 Mar, 2018 Chronic pain syndrome G89.4 and Hyperten shalini, benign I10 [place] [address] [address] Mar, Polyneuropathy G62.9 and Hypertension, b enign I10 [place] [address] [address] Feb, [place] [address] [address] Feb, Hypertension, benign I10 [place] [address] [address] 15 Feb, 2018 Hypertension, benign I10 ; Polyneuropath y G62.9 and Primary insomnia F51.01 [place] [address] [address] Jan, Hypertension, benign I10 and Polyneuropa thy G62.9 [facility] [place] [address] [address] Jan, Hypertension, benign I10 and Neuropathy G62.9 [facility] [place] [address] [address] Jan, [facility] [place] [address] [address] Dec, Polyneuropathy G62.9 [facility] [place] [address] [address] Dec, Mood disorder F39 [facility] [place] [address] [address] November, Polyneuropathy G62.9 [facility] [place] [address] [address] November, Medicare annual wellness visit, initial Z00.00 [facility] [place] [address] [address] November, Mood disorder F39 [facility] [place] [address] [address] Oct, Polyneuropathy G62.9 [facility] [place] [address] [address] Oct, [facility] [place] [address] [address] Oct, [facility] [place] [address] [address] Oct, Mood disorder F39 ; Attention to urostom y Z43.6 ; Chronic pain syndrome G89.4 and Polyneuropathy G62.9 [facility] [place] [id number] [place] [address] Sep, Polyneuropathy G62.9 [facility] [place] [address] [address] Sep, [facility] [place] [id number] [place] [address] Sep, Polyneuropathy G62.9 [facility] [place] [id number] [place] [address] Aug, Polyneuropathy G62.9 [facility] [place] [address] [address] Aug, Malignant neoplasm of colon, unspecified part of colon C18.9 and Polyneuropathy G62.9 [facility] [place] [address] [address] Aug, Neuropathy G62.9 and Polyneuropathy G62. 9 [facility] [place] [address] [address] Jul, Encounter for drug screening Z02.83 [facility] [place] [address] [address] Jul, Polyneuropathy G62.9 [facility] [place] [address] [address] Jul, [facility] [place] [address] [address] Jul, Neuropathy G62.9 and Anxiety F41.9 [facility] [place] [address] [address] Jul, [facility] [place] [address] [address] Jul, [facility] [place] [address] [address] Jul, [facility] [place] [address] [address] Jul, Polyneuropathy G62.9 [facility] [place] [address] [address] Jul, [facility] [place] [address] [address] Jun, [facility] [place] [address] [address] Jun, [facility] [place] [address] [address] Jun, [facility] [address] [id number] [place] [address] Jun, Encounter for dental examina tion Z01.20 [facility] [place] [address] [address] Jun, Polyneuropathy G62.9 and Anxiety F41.9 [facility] [place] [address] [address] Jun, [facility] [address] [id number] [place] [address] May, Dental examination Z01.20 [facility] [place] [address] [address] May, Polyneuropathy G62.9 [facility] [place] [address] [address] Apr, Polyneuropathy G62.9 [facility] [place] [address] [address] Apr, Polyneuropathy G62.9 [facility] [place] [address] [address] Apr, Hypertension, benign I10 ; Polyneuropath y G62.9 and Anxiety F41.9 [facility] [place] [address] [address] Apr, Primary insomnia F51.01 and Polyneuropat hy G62.9 [facility] [place] [address] [address] Apr, Primary insomnia F51.01 and Polyneuropat hy G62.9 [facility] [place] [address] [address] Mar, Primary insomnia F51.01 [facility] [place] [address] [id number] [place] [address] Mar, [facility] [place] [address] [id number] [place] [address] Mar, Polyneuropathy G62.9 [facility] [place] [id number] [place] [address] Feb, Primary insomnia F51.01 [facility] [place] [address] [id number] [place] [address] Feb, [facility] [place] [id number] [place] [address] Feb, [facility] [place] [id number] [place] [address] Feb, Polyneuropathy G62.9 [facility] [place] [id number] [place] [address] Feb, Primary insomnia F51.01 [facility] [place] [address] [id number] [place] [address] Jan, [facility] [place] [id number] [place] [address] Jan, [facility] [place] [id number] [place] [address] Dec, [facility] [place] [id number] [place] [address] Dec, Primary insomnia F51.01 [facility] [place] [address] [id number] [place] [address] Dec, Primary insomnia F51.01 [facility] [place] [id number] [place] [address] Dec, [facility] [place] [id number] [place] [address] Dec, [facility] [place] [id number] [place] [address] Dec, [facility] [place] [id number] [place] [address] Dec, [facility] [place] [address] [address] November, Primary insomnia F51.01 and Polyneuropat hy G62.9 [facility] [place] [address] [address] November, [facility] [place] [address] [address] November, Abdominal pain, left lower quadrant R10. 32 [facility] [place] [address] [address] November, [facility] [place] [address] [address] Oct, [facility] [place] [address] [address] Oct, Abdominal pain, left lower quadrant R10. 32 ; H/O malignant carcinoid tumor of rectum Z85.040 and Neuropathy G62.9 [facility] [place] [address] [address] Oct, [facility] [place] [address] [address] Sep, [facility] [address] [id number] [id number] Sep, [facility] [place] [id number] [place] [address] Sep, [facility] [place] [id number] [place] [address] Aug, [facility] [place] [address] [address] Aug, [facility] [place] [address] [address] Aug, Abdominal pain, left lower quadrant R10. 32 ; Neuropathy G62.9 and Anxiety F41.9 [facility] [address] [place] [address] Jul, [facility] [place] [address] [address] Jul, [facility] [address] [facility] [id number] [place] [address] Jul, [facility] [place] [address] [address] Jul, [facility] [place] [address] [address] Jul, [facility] [place] [address] [address] Jun, [facility] [place] [address] [address] May, [facility] [place] [address] [address] May, [facility] [place] [address] [address] Apr, [facility] [place] [address] [address] Apr, Muscle spasms of both lower extremities M62.838 and Cellulitis, unspecified cellulitis site L03.90 [facility] [place] [address] [address] Apr, [facility] [place] [address] [address] 23 Mar, 2016 Generalized abdominal pain R10.84 [facility] [place] [address] [address] 20 Mar, 2016 [facility] [place] [address] [address] 14 Mar, 2016 [facility] [place] [address] [address] 14 Mar, 2016 [facility] [place] [address] [place] [address] 13 Mar, 2016 [facility] [place] [address] [id number] [place] [address] 12 Mar, 2016 [facility] [place] [id number] [place] [address] Mar, [facility] [place] [address] [id number] [place] [address] Mar, [facility] [place] [id number] [place] [address] Feb, Other specified diseases of anus and rec wilton K62.89 [facility] [place] [id number] [place] [address] Feb, [facility] [place] [id number] [place] [address] Feb, Dizziness R42 [facility] [place] [id number] [place] [address] Feb, [facility] [place] [id number] [place] [address] Jan, Polyneuropathy G62.9 [facility] [place] [id number] [place] [address] Jan, Other specified diseases of anus and rec wilton K62.89 [facility] [place] [address] [id number] [place] [address] Jan, [facility] [address] [facility] [id number] [place] [address] Jan, [facility] [place] [address] [id number] [place] [address] Jan, [facility] [place] [id number] [place] [address] Jan, Dizziness R42 [facility] [place] [address] [id number] [place] [address] Dec, [facility] [place] [id number] [place] [address] Dec, [facility] [place] [id number] [place] [address] Dec, [facility] [place] [id number] [place] [address] Dec, Dizziness R42 [facility] [place] [id number] [place] [address] November, [facility] [place] [id number] [place] [address] Oct, [facility] [place] [id number] [place] [address] Oct, [facility] [place] [id number] [place] [address] Oct, [facility] [place] [id number] [place] [address] Oct, [facility] [place] [id number] [place] [address] Sep, [facility] [place] [id number] [place] [address] Sep, Primary insomnia F51.01 [facility] [place] [id number] [place] [address] Sep, Primary insomnia F51.01 [facility] [place] [id number] [place] [address] Sep, [facility] [place] [id number] [place] [address] Aug, [facility] [place] [address] [id number] [place] [address] Aug, [facility] [place] [id number] [place] [address] Aug, Primary insomnia F51.01 ; Mood disorder F39 ; Nausea and vomiting, unspecified intactability, vomiting of unspecified type R11.2 and Diarrhea R19.7 [facility] [place] [id number] [place] [address] 15 Aug, 2015 [facility] [place] [address] [address] Aug, Folliculitis L73.9 [facility] [place] [id number] [place] [address] Aug, [facility] [place] [address] [address] Aug, [facility] [place] [address] [address] Jul, Folliculitis L73.9 [facility] [place] [address] [address] Jul, [facility] [place] [address] [address] Jun, Folliculitis L73.9 [facility] [place] [address] [address] Jun, [facility] [place] [address] [address] May, Polyneuropathy G62.9 [facility] [place] [address] [address] May, Other specified diseases of anus and rec wilton K62.89 [facility] [place] [address] [address] May, [facility] [place] [address] [address] May, Primary insomnia F51.01 [facility] [place] [address] [address] May, [facility] [place] [address] [address] May, [facility] [place] [address] [address] Apr, Other specified diseases of anus and rec wilton K62.89 ; Chronic fatigue R53.82 ; Urinary tract infection, site not specified N39.0 and Enterococcus as the cause of diseases classified elsewhere B95.2 [facility] [place] [id number] [place] [address] 16 Apr, 2015 [facility] [place] [id number] [place] [address] 15 Apr, 2015 [facility] [place] [id number] [place] [address] 14 Apr, 2015 Unspecified inflammatory and toxic neuro carol 357.9 [facility] [place] [id number] [place] [address] 05 Apr, 2015 [facility] [place] [id number] [place] [address] 26 Mar, 2015 [facility] [place] [id number] [place] [address] 23 Mar, 2015 [facility] [place] [id number] [place] [address] 17 Mar, 2015 [facility] [place] [id number] [place] [address] 14 Mar, 2015 Unspecified inflammatory and toxic neuro carol 357.9 [facility] [place] [id number] [place] [address] 12 Mar, 2015 [facility] [place] [id number] [place] [address] 11 Mar, 2015 [facility] [place] [id number] [place] [address] 11 Mar, 2015 [facility] [place] [id number] [place] [address] 10 Mar, 2015 [facility] [place] [id number] [place] [address] Feb, [facility] [place] [id number] [place] [address] Feb, [facility] [place] [id number] [place] [address] Feb, [facility] [id number] [place] [address] Jan, [facility] [id number] [place] [address] Jan, Nausea 787.02 and Neuropathy 355.9 [facility] [id number] [place] [address] Jan, [facility] [id number] [place] [address] Jan, [facility] [id number] [place] [address] Jan, [facility] [id number] [place] [id number] Jan, Dental examination V72.2 [facility] [id number] [place] [address] Jan, [facility] [id number] [place] [address] Dec, [facility] [id number] [place] [address] Dec, [facility] [id number] [place] [address] Dec, Neuropathy 355.9 [facility] [id number] [place] [address] November, [facility] [id number] [place] [address] November, [facility] [id number] [place] [address] November, [facility] [place] [facility] [id number] [place] [address] Oct, [facility] [place] [facility] [id number] [place] [address] Oct, [facility] [place] [facility] [id number] [place] [address] Sep, [facility] [place] [facility] [address] [id number] [place] [address] Sep, [facility] [place] [facility] [address] [id number] [place] [address] Sep, [facility] [place] [facility] [address] [id number] [place] [address] Sep, [facility] [place] [facility] [address] [id number] [place] [address] Sep, [facility] [place] [facility] [address] [id number] [place] [address] Sep, [facility] [place] [facility] [address] [id number] [place] [address] Sep, [facility] [place] [facility] [address] [id number] [place] [address] Sep, [facility] [place] [facility] [address] [id number] [place] [address] Aug, 2014 [facility] [place] [facility] [address] [id number] [place] [address] Aug, 2014 [facility] [place] [facility] [address] [id number] [place] [address] Aug, 2014 [facility] [place] [facility] [address] [id number] [place] [address] Aug, 2014 [facility] [place] [facility] [address] [id number] [place] [address] Aug, 2014 [facility] [place] [facility] [address] [id number] [place] [address] Aug, 2014 [facility] [place] [facility] [address] [id number] [place] [address] Aug, 2014 [facility] [place] [facility] [address] [id number] [place] [address] Aug, 2014 [facility] [place] [facility] [address] [id number] [place] [address] Jul, [facility] [place] [facility] [address] [id number] [place] [address] Jul, [facility] [place] [facility] [address] [id number] [place] [address] Jun, [facility] [place] [facility] [address] [id number] [place] [address] Jun, [facility] [place] [facility] [address] [id number] [place] [address] Jun, [facility] [place] [facility] [address] [id number] [place] [address] Jun, [facility] [place] [facility] [address] [id number] [place] [address] Jun, [facility] [place] [facility] [address] [id number] [place] [address] Jun, [facility] [place] [facility] [address] [id number] [place] [address] Jun, [facility] [place] [facility] [address] [id number] [place] [address] Jun, [facility] [place] [facility] [address] [id number] [place] [address] Jun, [facility] [place] [facility] [address] [id number] [place] [address] Jun, [facility] [place] [facility] [address] [id number] [place] [address] Jun, [facility] [place] [facility] [address] [id number] [place] [address] May, [facility] [place] [facility] [address] [id number] [place] [address] May, [facility] [place] [facility] [id number] [place] [address] May, [facility] [place] [facility] [address] [id number] [place] [address] May, [facility] [place] [facility] [address] [id number] [place] [address] May, [facility] [place] [facility] [address] [facility] [id number] [place] [address] May, [facility] [place] [facility] [address] [id number] [place] [address] May, [facility] [place] [facility] [address] [id number] [place] [address] May, [facility] [place] [facility] [address] [id number] [place] [address] May, [facility] [place] [facility] [address] [id number] [place] [address] Apr, [facility] [place] [facility] [address] [id number] [place] [address] Apr, [facility] [place] [facility] [address] [id number] [place] [address] Apr, [facility] [place] [facility] [address] [id number] [place] [address] Apr, [facility] [place] [facility] [address] [id number] [place] [address] Apr, [facility] [place] [facility] [address] [id number] [place] [address] Mar, [facility] [place] [facility] [address] [id number] [place] [address] Mar, [facility] [place] [facility] [address] [id number] [place] [address] Feb, [facility] [place] [facility] [address] [id number] [place] [address] Feb, [facility] [place] [facility] [address] [id number] [place] [address] Feb, [facility] [place] [facility] [address] [id number] [place] [address] Feb, [facility] [place] [facility] [address] [id number] [place] [address] Feb, [facility] [place] [facility] [address] [id number] [place] [address] Feb, [facility] [place] [facility] [address] [id number] [facility] [place] [place] [address] Jan, [facility] [place] [facility] [address] [facility] [id number] [facility] [address] Jan, [facility] [place] [facility] [address] [facility] [id number] [facility] [place] [address] Jan, [facility] [place] [facility] [address] [id number] [facility] [place] [address] Jan, [facility] [place] [facility] [address] [facility] [id number] [facility] [place] [address] Jan, [facility] [place] [facility] [address] [id number] [place] [address] Jan, [facility] [place] [facility] [address] [facility] [id number] [place] [address] Jan, [facility] [place] [facility] [address] [facility] [id number] [facility] [place] [address] Jan, [facility] [place] [facility] [address] [facility] [id number] [place] [address] Jan, [facility] [place] [facility] [address] [id number] [facility] [place] [address] Jan, [facility] [place] [facility] [address] [facility] [id number] [place] [address] Jan, [facility] [place] [facility] [address] [facility] [id number] [place] [address] Dec, [facility] [place] [facility] [address] [facility] [id number] [facility] [place] [address] Dec, [facility] [place] [facility] [address] [id number] [place] [address] Dec, [facility] [place] [facility] [address] [facility] [id number] [place] [address] Dec, [facility] [place] [facility] [address] [facility] [id number] [facility] [place] [address] Dec, [facility] [place] [facility] [address] [id number] [place] [address] Dec, [facility] [place] [facility] [address] [id number] [place] [address] November, [facility] [place] [facility] [address] [id number] [place] [address] November, [facility] [place] [facility] [address] [id number] [place] [address] November, [facility] [place] [facility] [address] [id number] [place] [address] November, [facility] [place] [facility] [address] [id number] [place] [address] November, [facility] [place] [facility] [address] [id number] [place] [address] November, [facility] [place] [facility] [address] [id number] [place] [address] Oct, [facility] [place] [facility] [address] [id number] [place] [address] Oct, [facility] [place] [facility] [address] [id number] [place] [address] Oct, [facility] [place] [facility] [address] [id number] [place] [address] Oct, [facility] [place] [facility] [address] [id number] [place] [address] Sep, [facility] [place] [facility] [address] [id number] [place] [address] Sep, [facility] [place] [facility] [address] [id number] [place] [address] Sep, [facility] [place] [facility] [address] [id number] [place] [address] Sep, [facility] [place] [facility] [address] [id number] [place] [address] Sep, [facility] [place] [facility] [address] [id number] [place] [address] Aug, [facility] [place] [facility] [address] [facility] [id number] [place] [address] Aug, [facility] [address] [id number] [place] [address] Aug, [facility] [place] [facility] [address] [id number] [place] [address] Aug, [facility] [address] [id number] [place] [address] Aug, [facility] [address] [facility] [id number] May, [facility] [address] [id number] [place] [address] May, [facility] [place] [facility] [address] [id number] [place] [address] May, [facility] [address] [id number] [place] [address] May, [facility] [place] [facility] [address] [id number] [place] [address] May, [facility] [address] [id number] [place] [address] Apr, [facility] [place] [facility] [address] [id number] [place] [address] Apr, [facility] [place] [facility] [address] [id number] [place] [address] Apr, [facility] [place] [facility] [address] [id number] [place] [address] Apr, [facility] [place] [facility] [address] [id number] [place] [address] Apr, [facility] [place] [facility] [address] [id number] [place] [address] Apr, [facility] [place] [facility] [address] [id number] [place] [address] Apr, [facility] [place] [facility] [address] [id number] [place] [address] 28 Mar, 2012 [facility] [place] [facility] [address] [id number] [facility] [place] [address] 25 Mar, 2013 [facility] [place] [facility] [address] [facility] [id number] [facility] [place] [address] 24 Mar, 2013 [facility] [place] [facility] [address] [id number] [place] [address] 16 Mar, 2013 [facility] [place] [facility] [address] [id number] [facility] [place] [address] 12 Mar, 2013 [facility] [place] [facility] [address] [facility] [id number] [facility] [place] [address] Mar, [facility] [place] [facility] [address] [id number] [place] [address] Feb, [facility] [place] [facility] [address] [id number] [place] [address] Feb, [facility] [place] [facility] [address] [id number] [place] [address] Feb, [facility] [place] [facility] [address] [id number] [place] [address] Feb, [facility] [place] [facility] [address] [id number] [place] [address] Feb, [facility] [place] [facility] [address] [id number] [place] [address] Feb, [facility] [place] [facility] [address] [id number] [place] [address] Jan, [facility] [place] [facility] [address] [id number] [place] [address] Dec, [facility] [place] [facility] [address] [id number] [place] [address] Dec, [facility] [place] [facility] [address] [id number] [place] [address] Dec, [facility] [place] [facility] [address] [id number] [place] [address] Dec, [facility] [place] [facility] [address] [id number] [place] [address] Dec, [facility] [place] [facility] [address] [facility] [id number] [place] [address] Dec, [facility] [place] [facility] [address] [id number] [place] [address] Dec, [facility] [place] [facility] [address] [id number] [place] [address] Dec, [facility] [place] [facility] [address] [id number] [place] [address] Dec, [facility] [place] [facility] [address] [id number] [place] [address] November, [facility] [place] [facility] [address] [id number] [place] [address] November, [facility] [place] [facility] [address] [id number] [place] [address] Oct, [facility] [place] [facility] [address] [id number] [place] [address] Sep, [facility] [place] [facility] [address] [id number] [place] [address] Sep, [facility] [place] [facility] [address] [id number] [place] [address] Sep, [facility] [place] [facility] [address] [id number] [place] [address] Sep, [facility] [place] [facility] [address] [id number] [place] [address] Aug, [facility] [place] [facility] [address] [id number] [place] [address] Aug, [facility] [place] [facility] [address] [id number] [place] [address] Jul, [facility] [place] [facility] [address] [id number] [place] [address] Jul, [facility] [place] [facility] [address] [id number] [place] [address] Jul, [facility] [place] [address] [facility] [id number] [place] [address] Sep, [facility] [place] [address] [id number] [place] [address] Sep, [facility] [place] [address] [facility] [id number] [place] [address] Sep, IMMUNIZATIONS No Known Immunizations SOCIAL HISTORY [...] [facility]- UTI/Sepsis 01/18/2018 Hospitalization History [facility] - infection 4 days 05/2018
--- OUTSIDE RECORDS SUMMARY | 2020-01-14 23:28 | XMS REPORT ---
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 Name Role Phone LINDA BENTLEY Unavailable PROBLEMS Type Condition ICD9-CM Code [id number] Code Onset Dates Condition S tatus SNOMED Code Problem Incontinence of feces, unspecified fecal incontinence type R15.9 Active 50123802 Problem Primary insomnia F51.01 Active 193 089138 Problem Hydronephrosis with ureteral stricture, not else where classified N13.1 Active 89755932 Problem Chronic fatigue, unspecified R53.82 A ctive 225896351 Problem Hypertension, benign I10 Active 12687047 Problem Mood disorder F39 Active 890825 05 Problem Neuropathy G62.9 Active 237225250 Problem Chronic pain syndrome G89.4 Active 679158126 Problem Abdominal pain, left lower quadrant R10.32 Active 479540562 Problem 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 9 [facility] [id number] [place] [address] 14 Jul, 2019 Primary insomnia F51.01 ; Neuropathy G62 .9 and Encounter for Medicare annual wellness exam Z00.00 [facility] [address] [address] Jun, Neuropathy G62.9 and Encounter for Medic are annual wellness exam Z00.00 [facility] [address] [address] 18 Jun, 2019 Primary insomnia F51.01 [facility] [address] [address] Jun, Primary insomnia F51.01 ; Encounter for Medicare annual wellness exam Z00.00 and Neuropathy G62.9 [facility] [address] [address] Jun, Malignant neoplasm of colon, unspecified part of colon C18.9 and Chronic fatigue, unspecified R53.82 [facility] [address] [address] May, Neuropathy G62.9 and Encounter for Medic are annual wellness exam Z00.00 [facility] [address] [address] 15 May, 2019 Primary insomnia F51.01 [facility] [address] [address] May, Neuropathy G62.9 and Anxiety F41.9 [facility] [address] [address] Apr, Encounter for Medicare annual wellness e xam Z00.00 [facility] [facility] [address] [address] Apr, Neuropathy G62.9 and Encounter for Medic are annual wellness exam Z00.00 [facility] [address] [address] Mar, Neuropathy G62.9 and Primary insomnia F5 1.01 [facility] [address] [address] Mar, [facility] [address] [address] Feb, Primary insomnia F51.01 ; Neuropathy G62 .9 and Encounter for Medicare annual wellness exam Z00.00 [facility] [address] [address] Feb, Neuropathy G62.9 and Encounter for [facility] annual wellness exam Z00.00 [facility] [address] [address] Feb, Primary insomnia F51.01 and High risk me dication use Z79.899 [facility] [address] [address] Jan, [facility] [address] [address] Jan, Neuropathy G62.9 [facility] [address] [address] Dec, [facility] [address] [address] Dec, Encounter for Medicare annual wellness e xam Z00.00 and Neuropathy G62.9 [facility] [address] [address] November, [facility] [address] [address] November, Encounter for Medicare annual wellness e xam Z00.00 ; 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 ; Mood disorder F39 ; Chronic fatigue, unspecified R53.82 and Neuropathy G62.9 [facility] [id number] [place] [address] November, Neuropathy G62.9 [facility] [address] [address] Oct, Neuropathy G62.9 [facility] [address] [address] Oct, Hypertension, benign I10 and Anxiety F41 .9 [facility] [address] [address] Oct, [facility] [address] [address] Oct, [facility] [address] [address] Oct, [facility] [address] [address] Oct, Neuropathy G62.9 [facility] [address] [address] Sep, [facility] [address] [address] Sep, Neuropathy G62.9 [facility] [address] [address] Sep, [facility] [address] [address] Sep, H/O malignant carcinoid tumor of rectum Z85.040 and Primary insomnia F51.01 [facility] [address] [address] Aug, [facility] [address] [address] Aug, Neuropathy G62.9 [facility] [address] [address] Aug, [facility] [address] [address] Jul, Non-recurrent acute suppurative otitis m edia of left ear without spontaneous rupture of tympanic membrane H66.002 [facility] [address] [address] Jul, Neuropathy G62.9 [facility] [address] [address] Jun, [facility] [address] [address] Jun, [facility] [address] [address] Jun, Neuropathy G62.9 [facility] [address] [address] Jun, [facility] [address] [address] Jun, [facility] [address] [address] Jun, Lumbar neuritis M54.16 [facility] [place] [address] [address] May, Neuropathy G62.9 [facility] [address] [address] May, [facility] [address] [address] May, Neuropathy G62.9 and Hypertension, benig n I10 [facility] [address] [address] 09 Apr, 2018 Polyneuropathy G62.9 and Hypertension, b enign I10 [facility] [address] [address] 17 Mar, 2018 Chronic pain syndrome G89.4 and Hyperten shalini, benign I10 [facility] [address] [address] Mar, Polyneuropathy G62.9 and Hypertension, b enign I10 [facility] [address] [address] Feb, [facility] [address] [address] Feb, Hypertension, benign I10 [place] [address] [address] 15 Feb, 2018 Hypertension, benign I10 ; Polyneuropath y G62.9 and Primary insomnia F51.01 [place] [address] [address] Jan, Hypertension, benign I10 and Polyneuropa thy G62.9 [facility] [address] [address] Jan, Hypertension, benign I10 and Neuropathy G62.9 [facility] [address] [address] Jan, [facility] [address] [address] Dec, Polyneuropathy G62.9 [facility] [address] [address] Dec, Mood disorder F39 [facility] [address] [address] November, Polyneuropathy G62.9 [facility] [address] [address] November, Medicare annual wellness visit, initial Z00.00 [facility] [address] [address] November, Mood disorder F39 [facility] [address] [address] Oct, Polyneuropathy G62.9 [facility] [address] [address] Oct, [facility] [address] [address] Oct, [facility] [address] [address] Oct, Mood disorder F39 ; Attention to urostom y Z43.6 ; Chronic pain syndrome G89.4 and Polyneuropathy G62.9 [facility] [id number] [place] [address] Sep, Polyneuropathy G62.9 [facility] [address] [address] Sep, [facility] [id number] [place] [address] Sep, Polyneuropathy G62.9 [facility] [id number] [place] [address] Aug, Polyneuropathy G62.9 [facility] [address] [address] Aug, Malignant neoplasm of colon, unspecified part of colon C18.9 and Polyneuropathy G62.9 [facility] [address] [address] Aug, Neuropathy G62.9 and Polyneuropathy G62. 9 [facility] [address] [address] Jul, Encounter for drug screening Z02.83 [facility] [address] [address] Jul, Polyneuropathy G62.9 [facility] [address] [address] Jul, [facility] [address] [address] Jul, Neuropathy G62.9 and Anxiety F41.9 [facility] [address] [address] Jul, [facility] [address] [address] Jul, [facility] [address] [address] Jul, [facility] [address] [address] Jul, Polyneuropathy G62.9 [facility] [address] [address] Jul, [facility] [address] [address] Jun, [facility] [address] [address] Jun, [facility] [address] [address] Jun, [facility] [address] [id number] [place] [address] Jun, Encounter for dental examina tion Z01.20 [facility] [address] [address] Jun, Polyneuropathy G62.9 and Anxiety F41.9 [facility] [address] [address] Jun, [facility] [address] [id number] [place] [address] May, Dental examination Z01.20 [facility] [address] [address] May, Polyneuropathy G62.9 [facility] [address] [address] Apr, Polyneuropathy G62.9 [facility] [address] [address] Apr, Polyneuropathy G62.9 [facility] [address] [address] Apr, Hypertension, benign I10 ; Polyneuropath y G62.9 and Anxiety F41.9 [facility] [address] [address] Apr, Primary insomnia F51.01 and Polyneuropat hy G62.9 [facility] [address] [address] Apr, Primary insomnia F51.01 and Polyneuropat hy G62.9 [facility] [address] [address] Mar, Primary insomnia F51.01 [facility] [address] [id number] [place] [address] Mar, [facility] [address] [id number] [place] [address] Mar, Polyneuropathy G62.9 [facility] [id number] [place] [address] Feb, Primary insomnia F51.01 [facility] [address] [id number] [place] [address] Feb, [facility] [id number] [place] [address] Feb, [facility] [id number] [place] [address] Feb, Polyneuropathy G62.9 [facility] [id number] [place] [address] Feb, Primary insomnia F51.01 [facility] [address] [id number] [place] [address] Jan, [facility] [id number] [place] [address] Jan, [facility] [id number] [place] [address] Dec, [facility] [id number] [place] [address] Dec, Primary insomnia F51.01 [facility] [address] [id number] [place] [address] Dec, Primary insomnia F51.01 [facility] [id number] [place] [address] Dec, [facility] [id number] [place] [address] Dec, [facility] [id number] [place] [address] Dec, [facility] [id number] [place] [address] Dec, [facility] [address] [address] November, Primary insomnia F51.01 and Polyneuropat hy G62.9 [facility] [address] [address] November, [facility] [address] [address] November, Abdominal pain, left lower quadrant R10. 32 [facility] [address] [address] November, [facility] [address] [address] Oct, [facility] [address] [address] Oct, Abdominal pain, left lower quadrant R10. 32 ; H/O malignant carcinoid tumor of rectum Z85.040 and Neuropathy G62.9 [facility] [address] [address] Oct, [facility] [address] [address] Sep, [facility] [address] [place] [id number] [id number] Sep, [facility] [id number] [place] [address] Sep, [facility] [id number] [place] [address] Aug, [facility] [address] [address] Aug, [facility] [address] [address] Aug, Abdominal pain, left lower quadrant R10. 32 ; Neuropathy G62.9 and Anxiety F41.9 [facility] [address] [place] [address] Jul, [facility] [address] [address] Jul, [facility] [address] [facility] [id number] [place] [address] Jul, [facility] [address] [address] Jul, [facility] [address] [address] Jul, [facility] [address] [address] Jun, [facility] [address] [address] May, [facility] [address] [address] May, [facility] [address] [address] Apr, [facility] [address] [address] Apr, Muscle spasms of both lower extremities M62.838 and Cellulitis, unspecified cellulitis site L03.90 [facility] [address] [address] Apr, [facility] [address] [address] 23 Mar, 2016 Generalized abdominal pain R10.84 [facility] [address] [address] 20 Mar, 2016 [facility] [address] [address] 14 Mar, 2016 [facility] [address] [address] 14 Mar, 2016 [facility] [address] [place] [address] 13 Mar, 2016 [facility] [address] [id number] [place] [address] 12 Mar, 2016 [facility] [id number] [place] [address] Mar, [facility] [address] [id number] [place] [address] Mar, [facility] [id number] [place] [address] Feb, Other specified diseases of anus and rec wilton K62.89 [facility] [id number] [place] [address] Feb, [facility] [id number] [place] [address] Feb, Dizziness R42 [facility] [id number] [place] [address] Feb, [facility] [id number] [place] [address] Jan, Polyneuropathy G62.9 [facility] [id number] [place] [address] Jan, Other specified diseases of anus and rec wilton K62.89 [facility] [address] [id number] [place] [address] Jan, [facility] [address] [facility] [id number] [place] [address] Jan, [facility] [address] [id number] [place] [address] Jan, [facility] [id number] [place] [address] Jan, Dizziness R42 [facility] [address] [id number] [place] [address] Dec, [facility] [id number] [place] [address] Dec, [facility] [id number] [place] [address] Dec, [facility] [id number] [place] [address] Dec, Dizziness R42 [facility] [id number] [place] [address] November, [facility] [id number] [place] [address] Oct, [facility] [id number] [place] [address] Oct, [facility] [id number] [place] [address] Oct, [facility] [id number] [place] [address] Oct, [facility] [id number] [place] [address] Sep, [facility] [id number] [place] [address] Sep, Primary insomnia F51.01 [facility] [id number] [place] [address] Sep, Primary insomnia F51.01 [facility] [id number] [place] [address] Sep, [facility] [id number] [place] [address] Aug, [facility] [id number] [place] [address] Aug, [facility] [id number] [place] [address] Aug, Primary insomnia F51.01 ; Mood disorder F39 ; Nausea and vomiting, unspecified intactability, vomiting of unspecified type R11.2 and Diarrhea R19.7 [facility] [id number] [place] [address] 15 Aug, 2015 [facility] [address] [address] Aug, Folliculitis L73.9 [facility] [id number] [place] [address] Aug, [facility] [address] [address] Aug, [facility] [address] [address] Jul, Folliculitis L73.9 [facility] [address] [address] Jul, [facility] [address] [address] Jun, Folliculitis L73.9 [facility] [address] [address] Jun, [facility] [address] [address] May, Polyneuropathy G62.9 [facility] [address] [address] May, Other specified diseases of anus and rec wilton K62.89 [facility] [address] [address] May, [facility] [address] [address] May, Primary insomnia F51.01 [facility] [address] [address] May, [facility] [address] [address] May, [facility] [address] [address] Apr, Other specified diseases of anus and rec wilton K62.89 ; Chronic fatigue R53.82 ; Urinary tract infection, site not specified N39.0 and Enterococcus as the cause of diseases classified elsewhere B95.2 [facility] [id number] [place] [address] 16 Apr, 2015 [facility] [id number] [place] [address] 15 Apr, 2015 [facility] [id number] [place] [address] 14 Apr, 2015 Unspecified inflammatory and toxic neuro carol 357.9 [facility] [id number] [place] [address] 05 Apr, 2015 [facility] [id number] [place] [address] 26 Mar, 2015 [facility] [id number] [place] [address] 23 Mar, 2015 [facility] [id number] [place] [address] 17 Mar, 2015 [facility] [id number] [place] [address] 14 Mar, 2015 Unspecified inflammatory and toxic neuro carol 357.9 [facility] [id number] [place] [address] 12 Mar, 2015 [facility] [id number] [place] [address] 11 Mar, 2015 [facility] [id number] [place] [address] 11 Mar, 2015 [facility] [id number] [place] [address] 10 Mar, 2015 [facility] [id number] [place] [address] Feb, [facility] [id number] [place] [address] Feb, [facility] [id number] [place] [address] Feb, [facility] [id number] [place] [address] Jan, [facility] [id number] [place] [address] Jan, Nausea 787.02 and Neuropathy 355.9 [facility] [id number] [place] [address] Jan, [facility] [id number] [place] [address] Jan, [facility] [id number] [place] [address] Jan, [facility] [id number] [place] [id number] Jan, Dental examination V72.2 [facility] [address] [id number] [place] [address] Jan, [facility] [id number] [place] [address] Dec, [facility] [id number] [place] [address] Dec, [facility] [address] [id number] [place] [address] Dec, Neuropathy 355.9 [facility] [address] [id number] [place] [address] November, [facility] [id number] [place] [address] November, [facility] [address] [id number] [place] [address] November, [facility] [id number] [place] [address] Oct, [facility] [id number] [place] [address] Oct, [facility] [id number] [place] [address] Sep, [facility] [address] [id number] [place] [address] Sep, [facility] [address] [id number] [place] [address] Sep, [facility] [address] [id number] [place] [address] Sep, [facility] [address] [id number] [place] [address] Sep, [facility] [address] [id number] [place] [address] Sep, [facility] [address] [id number] [place] [address] Sep, [facility] [address] [id number] [place] [address] Sep, [facility] [address] [id number] [place] [address] Aug, 2014 [facility] [address] [id number] [place] [address] Aug, 2014 [facility] [address] [id number] [place] [address] Aug, 2014 [facility] [address] [id number] [place] [address] Aug, 2014 [facility] [address] [id number] [place] [address] Aug, 2014 [facility] [address] [id number] [place], [place] [address] Aug, 2014 [facility] [place] [facility] [address] [id number] [place] [address] Aug, 2014 [facility] [place] [facility] [address] [id number] [place] [address] Aug, 2014 [facility] [place] [facility] [address] [id number] [place] [address] Jul, [facility] [place] [facility] [address] [id number] [place] [address] Jul, [facility] [place] [facility] [address] [id number] [place] [address] Jun, [facility] [place] [facility] [address] [id number] [place] [address] Jun, [facility] [place] [facility] [address] [id number] [place] [address] Jun, [facility] [place] [facility] [address] [id number] [place] [address] Jun, [facility] [place] [facility] [address] [id number] [place] [address] Jun, [facility] [place] [facility] [address] [id number] [place] [address] Jun, [facility] [place] [facility] [address] [id number] [place] [address] Jun, [facility] [place] [facility] [address] [id number] [place] [address] Jun, [facility] [place] [facility] [address] [id number] [place] [address] Jun, [facility] [place] [facility] [address] [id number] [place] [address] Jun, [facility] [place] [facility] [address] [id number] [place] [address] Jun, [facility] [place] [facility] [address] [id number] [place] [address] May, [facility] [place] [facility] [address] [id number] [place] [address] May, [facility] [place] [facility] [id number] [place] [address] May, [facility] [place] [facility] [address] [id number] [place] [address] May, [facility] [place] [facility] [address] [id number] [place] [address] May, [facility] [place] [facility] [address] [facility] [id number] [place] [address] May, [facility] [place] [facility] [address] [id number] [place] [address] May, [facility] [place] [facility] [address] [id number] [place] [address] May, [facility] [place] [facility] [address] [id number] [place] [address] May, [facility] [place] [facility] [address] [id number] [place] [address] Apr, [facility] [place] [facility] [address] [id number] [place] [address] Apr, [facility] [place] [facility] [address] [id number] [place] [address] Apr, [facility] [place] [facility] [address] [id number] [place] [address] Apr, [facility] [place] [facility] [address] [id number] [place] [address] Apr, [facility] [place] [facility] [address] [id number] [place] [address] Mar, [facility] [place] [facility] [address] [id number] [place] [address] Mar, [facility] [place] [facility] [address] [id number] [place] [address] Feb, [facility] [place] [facility] [address] [id number] [place] [address] Feb, [facility] [place] [facility] [address] [id number] [place] [address] Feb, [facility] [place] [facility] [address] [id number] [place] [address] Feb, [facility] [place] [facility] [address] [id number] [place] [address] Feb, [facility] [place] [facility] [address] [id number] [place] [address] Feb, [facility] [place] [facility] [address] [id number] [facility] [place] [address] Jan, [facility] [place] [facility] [address] [facility] [id number] [facility] [place] [address] Jan, [facility] [place] [facility] [address] [facility] [id number] [facility] [place] [address] Jan, [facility] [place] [facility] [address] [id number] [facility] [place] [address] Jan, [facility] [place] [facility] [address] [facility] [id number] [facility] [place] [address] Jan, [facility] [place] [facility] [address] [id number] [place] [address] Jan, [facility] [place] [facility] [address] [facility] [id number] [place] [address] Jan, [facility] [place] [facility] [address] [facility] [id number] [facility] [place] [address] Jan, [facility] [place] [facility] [address] [facility] [id number] [place] [address] Jan, [facility] [place] [facility] [address] [id number] [facility] [place] [address] Jan, [facility] [place] [facility] [address] [facility] [id number] [place] [address] Jan, [facility] [place] [facility] [address] [facility] [id number] [place] [address] Dec, [facility] [place] [facility] [address] [facility] [id number] [facility] [place] [address] Dec, [facility] [place] [facility] [address] [id number] [place] [address] Dec, [facility] [place] [facility] [address] [facility] [id number] [place] [address] Dec, [facility] [place] [facility] [address] [facility] [id number] [facility] [place] [address] Dec, [facility] [place] [facility] [address] [id number] [place] [address] Dec, [facility] [place] [facility] [address] [id number] [place] [address] November, [facility] [place] [facility] [address] [id number] [place] [address] November, [facility] [place] [facility] [address] [id number] [place] [address] November, [facility] [place] [facility] [address] [id number] [place] [address] November, [facility] [place] [facility] [address] [id number] [place] [address] November, [facility] [place] [facility] [address] [id number] [place] [address] November, [facility] [place] [facility] [address] [id number] [place] [address] Oct, [facility] [place] [facility] [address] [id number] [place] [address] Oct, [facility] [place] [facility] [address] [id number] [place] [address] Oct, [facility] [place] [facility] [address] [id number] [place] [address] Oct, [facility] [place] [facility] [address] [id number] [place] [address] Sep, [facility] [place] [facility] [address] [id number] [place] [address] Sep, [facility] [place] [facility] [address] [id number] [place] [address] Sep, [facility] [place] [facility] [address] [id number] [place] [address] Sep, [facility] [place] [facility] [address] [id number] [place] [address] Sep, [facility] [place] [facility] [address] [id number] [place] [address] Aug, [facility] [place] [facility] [address] [facility] [id number] [place] [address] Aug, [facility] [address] [id number] [place] [address] Aug, [facility] [place] [facility] [address] [id number] [place] [address] Aug, [facility] [facility] [address] [id number] [place] [address] Aug, [facility] [address] [facility] [id number] May, [facility] [address] [id number] [place] [address] May, [facility] [place] [facility] [address] [id number] [place] [address] May, [facility] [address] [id number] [place] [address] May, [facility] [place] [facility] [address] [id number] [place] [address] May, [facility] [address] [id number] [place] [address] Apr, [facility] [place] [facility] [address] [id number] [place] [address] Apr, [facility] [place] [facility] [address] [id number] [place] [address] Apr, [facility] [place] [facility] [address] [id number] [place] [address] Apr, [facility] [place] [facility] [address] [id number] [place] [address] Apr, [facility] [place] [facility] [address] [id number] [place] [address] Apr, [facility] [place] [facility] [address] [id number] [place] [address] Apr, [facility] [place] [facility] [address] [id number] [place] [address] 28 Mar, 2012 [facility] [place] [facility] [address] [id number] [facility] [place] [address] 25 Mar, 2013 [facility] [place] [facility] [address] [facility] [id number] [facility] [place] [address] 24 Mar, 2013 [facility] [place] [facility] [address] [id number] [place] [address] 16 Mar, 2013 [facility] [place] [facility] [address] [id number] [facility] [place] [address] 12 Mar, 2013 [facility] [place] [facility] [address] [facility] [id number] [facility] [place] [address] Mar, [facility] [place] [facility] [address] [id number] [place] [address] Feb, [facility] [place] [facility] [address] [id number] [place] [address] Feb, [facility] [place] [facility] [address] [id number] [place] [address] Feb, [facility] [place] [facility] [address] [id number] [place] [address] Feb, [facility] [place] [facility] [address] [id number] [place] [address] Feb, [facility] [place] [facility] [address] [id number] [place] [address] Feb, [facility] [place] [facility] [address] [id number] [place] [address] Jan, [facility] [place] [facility] [address] [id number] [place] [address] Dec, [facility] [place] [facility] [address] [id number] [place] [address] Dec, [facility] [place] [facility] [address] [id number] [place] [address] Dec, [facility] [place] [facility] [address] [id number] [place] [address] Dec, [facility] [place] [facility] [address] [id number] [place] [address] Dec, [facility] [place] [facility] [address] [facility] [id number] [place] [address] Dec, [facility] [place] [facility] [address] [id number] [place] [address] Dec, [facility] [place] [facility] [address] [id number] [place] [address] Dec, [facility] [place] [facility] [address] [id number] [place] [address] Dec, [facility] [place] [facility] [address] [id number] [place] [address] November, [facility] [place] [facility] [address] [id number] [place] [address] November, [facility] [place] [facility] [address] [id number] [place] [address] Oct, [facility] [place] [facility] [address] [id number] [place] [address] Sep, [facility] [place] [facility] [address] [id number] [place] [address] Sep, [facility] [place] [facility] [address] [id number] [place] [address] Sep, [facility] [place] [facility] [address] [id number] [place] [address] Sep, [facility] [place] [facility] [address] [id number] [place] [address] Aug, [facility] [place] [facility] [address] [id number] [place] [address] Aug, [facility] [place] [facility] [address] [id number] [place] [address] Jul, [facility] [place] [facility] [address] [id number] [place] [address] Jul, [facility] [place] [facility] [address] [id number] [place] [address] Jul, [facility] [address] [facility] [id number] [place] [address] Sep, [facility] [address] [id number] [place] [address] Sep, [facility] [address] [facility] [id number] [place] [address] Sep, IMMUNIZATIONS No Known Immunizations SOCIAL HISTORY [...] bowel obstruction, Dehydration -[facility] 01/01/17 Hospitalization History [facility]- UTI/Sepsis 01/18/2018 Hospitalization History [facility] - infection 4 days 05/2018
--- OUTSIDE RECORDS SUMMARY | 2020-01-14 23:29 | XMS REPORT ---
Author Author Melvin BENTLEY Organization [facility] Address [address] [place] [address] Care Team Providers Care Audiology Technician Name Role Phone LINDA BENTLEY Unavailable PROBLEMS Type Condition ICD9-CM Code XKQ23-CN Code Onset Dates Condition S tatus SNOMED Code Problem Incontinence of feces, unspecified fecal incontinence type R15.9 Active 54828111 Problem Primary insomnia F51.01 Active 193 946309 Problem Hydronephrosis with ureteral stricture, not else where classified N13.1 Active 66667749 Problem Chronic fatigue, unspecified R53.82 A ctive 533755082 Problem Hypertension, benign I10 Active 57177524 Problem Mood disorder F39 Active 880196 05 Problem Neuropathy G62.9 Active 442692291 Problem Chronic pain syndrome G89.4 Active 034813808 Problem Abdominal pain, left lower quadrant R10.32 Active 610698311 Problem 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 9 [place] [id number] [address] Jul, Primary insomnia F51.01 ; Neuropathy G62 .9 and Encounter for Medicare annual wellness exam Z00.00 [place] [address] [address] Jun, Neuropathy G62.9 and Encounter for Medic are annual wellness exam Z00.00 [facility] [address] [address] 18 Jun, 2019 Primary insomnia F51.01 [facility] [address] [address] Jun, Primary insomnia F51.01 ; Encounter for Medicare annual wellness exam Z00.00 and Neuropathy G62.9 [facility] [address] [address] Jun, Malignant neoplasm of colon, unspecified part of colon C18.9 and Chronic fatigue, unspecified R53.82 [facility] [address] [address] May, Neuropathy G62.9 and Encounter for Medic are annual wellness exam Z00.00 [facility] [address] [address] 15 May, 2019 Primary insomnia F51.01 [facility] [address] [address] May, Neuropathy G62.9 and Anxiety F41.9 [facility] [address] [address] Apr, Encounter for Medicare annual wellness e xam Z00.00 [place] [address] [address] Apr, Neuropathy G62.9 and Encounter for Medic are annual wellness exam Z00.00 [facility] [address] [address] Mar, Neuropathy G62.9 and Primary insomnia F5 1.01 [facility] [address] [address] Mar, [facility] [address] [address] Feb, Primary insomnia F51.01 ; Neuropathy G62 .9 and Encounter for Medicare annual wellness exam Z00.00 [facility] [address] [address] Feb, Neuropathy G62.9 and Encounter for [facility] annual wellness exam Z00.00 [facility] [address] [address] Feb, Primary insomnia F51.01 and High risk me dication use Z79.899 [facility] [address] [address] Jan, [place] [address] [address] Jan, Neuropathy G62.9 [place] [address] [address] Dec, [place] [address] [address] Dec, Encounter for Medicare annual wellness e xam Z00.00 and Neuropathy G62.9 [facility] [address] [address] November, [place] [address] [address] November, Encounter for Medicare annual wellness e xam Z00.00 ; 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 ; Mood disorder F39 ; Chronic fatigue, unspecified R53.82 and Neuropathy G62.9 [facility] [id number] [place] [address] November, Neuropathy G62.9 [facility] [address] [address] Oct, Neuropathy G62.9 [facility] [address] [address] Oct, Hypertension, benign I10 and Anxiety F41 .9 [facility] [address] [address] Oct, [facility] [address] [address] Oct, [facility] [address] [address] Oct, [facility] [address] [address] Oct, Neuropathy G62.9 [facility] [address] [address] Sep, [facility] [address] [address] Sep, Neuropathy G62.9 [facility] [address] [address] Sep, [facility] [address] [address] Sep, H/O malignant carcinoid tumor of rectum Z85.040 and Primary insomnia F51.01 [facility] [address] [address] Aug, [facility] [address] [address] Aug, Neuropathy G62.9 [facility] [address] [address] Aug, [facility] [address] [address] Jul, Non-recurrent acute suppurative otitis m edia of left ear without spontaneous rupture of tympanic membrane H66.002 [facility] [address] [address] Jul, Neuropathy G62.9 [facility] [address] [address] Jun, [facility] [address] [address] Jun, [place] [address] [address] Jun, Neuropathy G62.9 [place] [address] [address] Jun, [facility] [address] [address] Jun, [place] [address] [address] Jun, Lumbar neuritis M54.16 [place] [address] [address] May, Neuropathy G62.9 [place] [address] [address] May, [place] [address] [address] May, Neuropathy G62.9 and Hypertension, benig n I10 [place] [address] [address] 09 Apr, 2018 Polyneuropathy G62.9 and Hypertension, b enign I10 [place] [address] [address] 17 Mar, 2018 Chronic pain syndrome G89.4 and Hyperten shalini, benign I10 [place] [address] [address] Mar, Polyneuropathy G62.9 and Hypertension, b enign I10 [place] [address] [address] Feb, [place] [address] [address] Feb, Hypertension, benign I10 [place] [address] [address] 15 Feb, 2018 Hypertension, benign I10 ; Polyneuropath y G62.9 and Primary insomnia F51.01 [place] [address] [address] Jan, Hypertension, benign I10 and Polyneuropa thy G62.9 [facility] [address] [address] Jan, Hypertension, benign I10 and Neuropathy G62.9 [facility] [address] [address] Jan, [facility] [address] [address] Dec, Polyneuropathy G62.9 [facility] [address] [address] Dec, Mood disorder F39 [facility] [address] [address] November, Polyneuropathy G62.9 [facility] [address] [address] November, Medicare annual wellness visit, initial Z00.00 [facility] [address] [address] November, Mood disorder F39 [facility] [address] [address] Oct, Polyneuropathy G62.9 [facility] [address] [address] Oct, [facility] [address] [address] Oct, [facility] [address] [address] Oct, Mood disorder F39 ; Attention to urostom y Z43.6 ; Chronic pain syndrome G89.4 and Polyneuropathy G62.9 [facility] [id number] [place] [address] Sep, Polyneuropathy G62.9 [facility] [address] [address] Sep, [facility] [id number] [place] [address] Sep, Polyneuropathy G62.9 [facility] [id number] [place] [address] Aug, Polyneuropathy G62.9 [facility] [address] [address] Aug, Malignant neoplasm of colon, unspecified part of colon C18.9 and Polyneuropathy G62.9 [facility] [address] [address] Aug, Neuropathy G62.9 and Polyneuropathy G62. 9 [facility] [address] [address] Jul, Encounter for drug screening Z02.83 [facility] [address] [address] Jul, Polyneuropathy G62.9 [facility] [address] [address] Jul, [facility] [address] [address] Jul, Neuropathy G62.9 and Anxiety F41.9 [facility] [address] [address] Jul, [facility] [address] [address] Jul, [facility] [address] [address] Jul, [facility] [address] [address] Jul, Polyneuropathy G62.9 [facility] [address] [address] Jul, [facility] [address] [address] Jun, [facility] [address] [address] Jun, [facility] [address] [address] Jun, [facility] [address] [id number] [place] [address] Jun, Encounter for dental examina tion Z01.20 [facility] [address] [address] Jun, Polyneuropathy G62.9 and Anxiety F41.9 [facility] [address] [address] Jun, [facility] [address] [id number] [place] [address] May, Dental examination Z01.20 [facility] [address] [address] May, Polyneuropathy G62.9 [facility] [address] [address] Apr, Polyneuropathy G62.9 [facility] [address] [address] Apr, Polyneuropathy G62.9 [facility] [address] [address] Apr, Hypertension, benign I10 ; Polyneuropath y G62.9 and Anxiety F41.9 [facility] [address] [address] Apr, Primary insomnia F51.01 and Polyneuropat hy G62.9 [facility] [address] [address] Apr, Primary insomnia F51.01 and Polyneuropat hy G62.9 [facility] [address] [address] Mar, Primary insomnia F51.01 [facility] [address] [id number] [place] [address] Mar, [facility] [address] [facility] [place] [address] Mar, Polyneuropathy G62.9 [facility] [id number] [place] [address] Feb, Primary insomnia F51.01 [facility] [address] [id number] [place] [address] Feb, [facility] [id number] [place] [address] Feb, [facility] [id number] [place] [address] Feb, Polyneuropathy G62.9 [facility] [id number] [place] [address] Feb, Primary insomnia F51.01 [facility] [address] [id number] [place] [address] Jan, [facility] [id number] [place] [address] Jan, [facility] [id number] [place] [address] Dec, [facility] [id number] [place] [address] Dec, Primary insomnia F51.01 [facility] [address] [id number] [place] [address] Dec, Primary insomnia F51.01 [facility] [id number] [place] [address] Dec, [facility] [id number] [place] [address] Dec, [facility] [id number] [place] [address] Dec, [facility] [id number] [place] [address] Dec, [facility] [address] [address] November, Primary insomnia F51.01 and Polyneuropat hy G62.9 [facility] [address] [address] November, [facility] [address] [address] November, Abdominal pain, left lower quadrant R10. 32 [facility] [address] [address] November, [facility] [address] [address] Oct, [facility] [address] [address] Oct, Abdominal pain, left lower quadrant R10. 32 ; H/O malignant carcinoid tumor of rectum Z85.040 and Neuropathy G62.9 [facility] [address] [address] Oct, [facility] [address] [address] Sep, [facility] [address] [id number] [id number] Sep, [facility] [id number] [place] [address] Sep, [facility] [id number] [address] Aug, [facility] [address] [address] Aug, [facility] [address] [address] Aug, Abdominal pain, left lower quadrant R10. 32 ; Neuropathy G62.9 and Anxiety F41.9 [facility] [address] [place] [address] Jul, [facility] [address] [address] Jul, [facility] [address] [facility] [id number] [place] [address] Jul, [facility] [address] [address] Jul, [facility] [address] [address] Jul, [facility] [address] [address] Jun, [facility] [address] [address] May, [facility] [address] [address] May, [facility] [address] [address] Apr, [facility] [address] [address] Apr, Muscle spasms of both lower extremities M62.838 and Cellulitis, unspecified cellulitis site L03.90 [facility] [address] [address] Apr, [facility] [address] [address] 23 Mar, 2016 Generalized abdominal pain R10.84 [facility] [address] [address] 20 Mar, 2016 [facility] [address] [address] 14 Mar, 2016 [facility] [address] [address] 14 Mar, 2016 [facility] [address] [place] [address] 13 Mar, 2016 [facility] [address] [id number] [place] [address] 12 Mar, 2016 [facility] [id number] [place] [address] Mar, [facility] [address] [id number] [place] [address] Mar, [facility] [id number] [place] [address] Feb, Other specified diseases of anus and rec wilton K62.89 [facility] [id number] [place] [address] Feb, [facility] [id number] [place] [address] Feb, Dizziness R42 [facility] [id number] [place] [address] Feb, [facility] [id number] [place] [address] Jan, Polyneuropathy G62.9 [facility] [id number] [place] [address] Jan, Other specified diseases of anus and rec wilton K62.89 [facility] [address] [id number] [place] [address] Jan, [facility] [address] [facility] [id number] [place] [address] Jan, [facility] [address] [id number] [place] [address] Jan, [facility] [id number] [place] [address] Jan, Dizziness R42 [facility] [address] [id number] [place] [address] Dec, [facility] [id number] [place] [address] Dec, [facility] [id number] [place] [address] Dec, [facility] [id number] [place] [address] Dec, Dizziness R42 [facility] [id number] [place] [address] November, [facility] [id number] [place] [address] Oct, [facility] [id number] [place] [address] Oct, [facility] [id number] [place] [address] Oct, [facility] [id number] [place] [address] Oct, [facility] [id number] [place] [address] Sep, [facility] [id number] [place] [address] Sep, Primary insomnia F51.01 [facility] [id number] [place] [address] Sep, Primary insomnia F51.01 [facility] [id number] [place] [address] Sep, [facility] [id number] [place] [address] Aug, [facility] [id number] [place] [address] Aug, [facility] [id number] [place] [address] Aug, Primary insomnia F51.01 ; Mood disorder F39 ; Nausea and vomiting, unspecified intactability, vomiting of unspecified type R11.2 and Diarrhea R19.7 [facility] [id number] [place] [address] 15 Aug, 2015 [facility] [address] [address] Aug, Folliculitis L73.9 [facility] [id number] [place] [address] Aug, [facility] [address] [address] Aug, [facility] [address] [address] Jul, Folliculitis L73.9 [facility] [address] [address] Jul, [facility] [address] [address] Jun, Folliculitis L73.9 [facility] [address] [address] Jun, [facility] [address] [address] May, Polyneuropathy G62.9 [facility] [address] [address] May, Other specified diseases of anus and rec wilton K62.89 [facility] [address] [address] May, [facility] [address] [address] May, Primary insomnia F51.01 [facility] [address] [address] May, [facility] [address] [address] May, [facility] [address] [address] Apr, Other specified diseases of anus and rec wilton K62.89 ; Chronic fatigue R53.82 ; Urinary tract infection, site not specified N39.0 and Enterococcus as the cause of diseases classified elsewhere B95.2 [facility] [id number] [place] [address] 16 Apr, 2015 [facility] [id number] [place] [address] 15 Apr, 2015 [facility] [id number] [place] [address] 14 Apr, 2015 Unspecified inflammatory and toxic neuro carol 357.9 [facility] [id number] [place] [address] 05 Apr, 2015 [facility] [id number] [place] [address] 26 Mar, 2015 [facility] [id number] [place] [address] 23 Mar, 2015 [facility] [id number] [place] [address] 17 Mar, 2015 [facility] [id number] [place] [address] 14 Mar, 2015 Unspecified inflammatory and toxic neuro carol 357.9 [facility] [id number] [place] [address] 12 Mar, 2015 [facility] [id number] [place] [address] 11 Mar, 2015 [facility] [id number] [place] [address] 11 Mar, 2015 [facility] [id number] [place] [address] 10 Mar, 2015 [facility] [id number] [place] [address] Feb, [facility] [id number] [place] [address] Feb, [facility] [id number] [place] [address] Feb, [facility] [id number] [place] [address] Jan, [facility] [id number] [place] [address] Jan, Nausea 787.02 and Neuropathy 355.9 [facility] [id number] [place] [address] Jan, [facility] [id number] [place] [address] Jan, [facility] [id number] [place] [address] Jan, [facility] [id number] [place] [id number] Jan, Dental examination V72.2 [facility] [id number] [place] [address] Jan, [facility] [id number] [place] [address] Dec, [facility] [id number] [place] [address] Dec, [facility] [id number] [place] [address] Dec, Neuropathy 355.9 [facility] [id number] [place] [address] November, [facility] [id number] [place] [address] November, [facility] [id number] [place] [address] November, [facility] [id number] [place] [address] Oct, [facility] [id number] [place] [address] Oct, [facility] [id number] [place] [address] Sep, [facility] [address] [id number] [place] [address] Sep, [facility] [address] [id number] [place] [address] Sep, [facility] [address] [id number] [place] [address] Sep, [facility] [address] [id number] [place] [address] Sep, [facility] [address] [id number] [place] [address] Sep, [facility] [address] [id number] [place] [address] Sep, [facility] [address] [id number] [place] [address] Sep, [facility] [address] [id number] [place] [address] Aug, 2014 [facility] [address] [id number] [place] [address] Aug, 2014 [facility] [address] [id number] [place] [address] Aug, 2014 [facility] [address] [id number] [place] [address] Aug, 2014 [facility] [address] [id number] [place] [address] Aug, 2014 [facility] [address] [id number] [place] [address] Aug, 2014 [facility] [address] [id number] [place] [address] Aug, 2014 [facility] [address] [id number] [place] [address] Aug, 2014 [facility] [address] [id number] [place] [address] Jul, [facility] [address] [id number] [place] [address] Jul, [facility] [address] [id number] [place] [address] Jun, [facility] [address] [id number] [place] [address] Jun, [facility] [address] [id number] [place] [address] Jun, [facility] [address] [id number] [place] [address] Jun, [facility] [facility] [address] [id number] [place] [address] Jun, [facility] [address] [id number] [place] [address] Jun, [facility] [address] [id number] [place] [address] Jun, [facility] [address] [id number] [place] [address] Jun, [facility] [address] [id number] [place] [address] Jun, [facility] [address] [id number] [place] [address] Jun, [facility] [address] [id number] [place] [address] Jun, [facility] [address] [id number] [place] [address] May, [facility] [address] [id number] [place] [address] May, [facility] [id number] [place] [address] May, [facility] [address] [id number] [place] [address] May, [facility] [address] [id number] [place] [address] May, [facility] [address] [facility] [id number] [place] [address] May, [facility] [address] [id number] [place] [address] May, [facility] [address] [id number] [place] [address] May, [facility] [address] [id number] [place] [address] May, [facility] [address] [id number] [place] [address] Apr, [facility] [address] [id number] [place] [address] Apr, [facility] [address] [id number] [place] [address] Apr, [facility] [address] [id number] [place] [address] Apr, [facility] [address] [id number] [place] [address] Apr, [facility] [address] [id number] [place] [address] Mar, [facility] [address] [id number] [place] [address] Mar, [facility] [address] [id number] [place] [address] Feb, [facility] [address] [id number] [place] [address] Feb, [facility] [address] [id number] [place] [address] Feb, [facility] [address] [id number] [place] [address] Feb, [facility] [address] [id number] [place] [address] Feb, [facility] [address] [id number] [place] [address] Feb, [facility] [address] [id number] [place] [address] Jan, [facility] [address] [facility] [id number] [place] [address] Jan, [facility] [address] [facility] [id number] [place] [address] Jan, [facility] [address] [id number] [place] [address] Jan, [facility] [address] [facility] [id number] [place] [address] Jan, [facility] [address] [id number] [place] [address] Jan, [facility] [address] [facility] [id number] [place] [address] Jan, [facility] [address] [facility] [id number] [place] [address] Jan, [facility] [address] [facility] [id number] [place] [address] Jan, [facility] [address] [id number] [place] [address] Jan, [facility] [address] [facility] [id number] [place] [address] Jan, [facility] [address] [facility] [id number] [place] [address] Dec, [facility] [address] [facility] [id number] [place] [address] Dec, [facility] [address] [id number] [place] [address] Dec, [facility] [address] [facility] [id number] [place] [address] Dec, [facility] [address] [facility] [id number] [place] [address] Dec, [facility] [address] [id number] [place] [address] Dec, [facility] [address] [id number] [place] [address] November, [facility] [address] [id number] [place] [address] November, [facility] [address] [id number] [place] [address] November, [facility] [address] [id number] [place] [address] November, [facility] [address] [id number] [place] [address] November, [facility] [address] [id number] [place] [address] November, [facility] [address] [id number] [place] [address] Oct, [facility] [address] [id number] [place] [address] Oct, [facility] [address] [id number] [place] [address] Oct, [facility] [address] [id number] [place] [address] Oct, [facility] [address] [id number] [place] [address] Sep, [facility] [address] [id number] [place] [address] Sep, [facility] [address] [id number] [place] [address] Sep, [facility] [address] [id number] [place] [address] Sep, [facility] [address] [id number] [place] [address] Sep, [facility] [address] [id number] [place] [address] Aug, [facility] [address] [facility] [id number] [place] [address] Aug, [facility] [address] [id number] [place] [address] Aug, [facility] [address] [id number] [place] [address] Aug, [facility] [address] [id number] [place] [address] Aug, [facility] OP [address] [facility] [place] [id number] May, [facility] [address] [id number] [place] [address] May, [facility] [address] [id number] [place] [address] May, [facility] [address] [id number] [place] [address] May, [facility] [address] [id number] [place] [address] May, [facility] [address] [id number] [place] [address] Apr, [facility] [address] [id number] [place] [address] Apr, [facility] [address] [id number] [place] [address] Apr, [facility] [address] [id number] [place] [address] Apr, [facility] [address] [id number] [place] [address] Apr, [facility] [address] [id number] [place] [address] Apr, [facility] [address] [id number] [place] [address] Apr, [facility] [address] [id number] [place] [address] 28 Mar, 2012 [facility] [address] [id number] [place] [address] 25 Mar, 2013 [facility] [address] [facility] [id number] [place] [address] 24 Mar, 2013 [facility] [address] [id number] [place] [address] 16 Mar, 2013 [facility] [address] [id number] [place] [address] 12 Mar, 2013 [facility] [address] [facility] [id number] [place] [address] Mar, [facility] [address] [id number] [place] [address] Feb, [facility] [address] [id number] [place] [address] Feb, [facility] [address] [id number] [place] [address] Feb, [facility] [address] [id number] [place] [address] Feb, [facility] [address] [id number] [place] [address] Feb, [facility] [address] [id number] [place] [address] Feb, [facility] [address] [id number] [place] [address] Jan, [facility] [address] [id number] [place] [address] Dec, [facility] [address] [id number] [place] [address] Dec, [facility] [address] [id number] [place] [address] Dec, [facility] [address] [id number] [place] [address] Dec, [facility] [address] [id number] [place] [address] Dec, [facility] [address] [facility] [id number] [place] [address] Dec, [facility] [address] [id number] [place] [address] Dec, [facility] [address] [id number] [place] [address] Dec, [facility] [address] [id number] [place] [address] Dec, [facility] [address] [id number] [place] [address] November, [facility] [address] [id number] [place] [address] November, [facility] [address] [id number] [place] [address] Oct, [facility] [address] [id number] [place] [address] Sep, [facility] [address] [id number] [place] [address] Sep, [facility] [address] [id number] [place] [address] Sep, [facility] [address] [id number] [place] [address] Sep, [facility] [address] [id number] [place] [address] Aug, [facility] [address] [id number] [place] [address] Aug, [facility] [address] [id number] [place] [address] Jul, [facility] [address] [id number] [place] [address] Jul, [facility] [address] [id number] [place] [address] Jul, [facility] [address] [facility] [id number] [place] [address] Sep, [facility] [address] [id number] [place] [address] Sep, [facility] [address] [facility] [id number] [place] [address] Sep, IMMUNIZATIONS No Known Immunizations SOCIAL HISTORY [...] [facility]- UTI/[facility]epsis 01/18/2018 Hospitalization History [facility] - infection 4 days 05/2018
--- OUTSIDE RECORDS SUMMARY | 2020-01-14 23:29 | XMS REPORT ---
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 Name Role Phone LINDA BENTLEY Unavailable PROBLEMS Type Condition ICD9-CM Code SNB49-PA Code Onset Dates Condition S tatus SNOMED Code Problem Incontinence of feces, unspecified fecal incontinence type R15.9 Active 70349093 Problem Primary insomnia F51.01 Active 193 947341 Problem Hydronephrosis with ureteral stricture, not else where classified N13.1 Active 43566724 Problem Chronic fatigue, unspecified R53.82 A ctive 938624071 Problem Hypertension, benign I10 Active 33648350 Problem Mood disorder F39 Active 914133 05 Problem Neuropathy G62.9 Active 986626484 Problem Chronic pain syndrome G89.4 Active 200913761 Problem Abdominal pain, left lower quadrant R10.32 Active 558766201 Problem 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 9 [facility] [id number] [place] [address] Jul, Primary insomnia F51.01 ; Neuropathy G62 .9 and Encounter for Medicare annual wellness exam Z00.00 [facility] [address] [address] Jun, Neuropathy G62.9 and Encounter for Medic are annual wellness exam Z00.00 [facility] [address] [address] 18 Jun, 2019 Primary insomnia F51.01 [facility] [address] [address] Jun, Primary insomnia F51.01 ; Encounter for Medicare annual wellness exam Z00.00 and Neuropathy G62.9 [facility] [address] [address] Jun, Malignant neoplasm of colon, unspecified part of colon C18.9 and Chronic fatigue, unspecified R53.82 [facility] [address] [address] May, Neuropathy G62.9 and Encounter for Medic are annual wellness exam Z00.00 [facility] [address] [address] 15 May, 2019 Primary insomnia F51.01 [facility] [address] [address] May, Neuropathy G62.9 and Anxiety F41.9 [facility] [address] [address] Apr, Encounter for Medicare annual wellness e xam Z00.00 [facility] [facility] [address] [address] Apr, Neuropathy G62.9 and Encounter for Medic are annual wellness exam Z00.00 [facility] [address] [address] Mar, Neuropathy G62.9 and Primary insomnia F5 1.01 [facility] [address] [address] Mar, [facility] [address] [address] Feb, Primary insomnia F51.01 ; Neuropathy G62 .9 and Encounter for Medicare annual wellness exam Z00.00 [facility] [address] [address] Feb, Neuropathy G62.9 and Encounter for [facility] annual wellness exam Z00.00 [facility] [address] [address] Feb, Primary insomnia F51.01 and High risk me dication use Z79.899 [facility] [address] [address] Jan, [facility] [facility] [address] [address] Jan, Neuropathy G62.9 [facility] [address] [address] Dec, [facility] [address] [address] Dec, Encounter for Medicare annual wellness e xam Z00.00 and Neuropathy G62.9 [facility] [address] [address] November, [facility] [address] [address] November, Encounter for Medicare annual wellness e xam Z00.00 ; 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 ; Mood disorder F39 ; Chronic fatigue, unspecified R53.82 and Neuropathy G62.9 [facility] [id number] [place] [address] November, Neuropathy G62.9 [facility] [address] [address] Oct, Neuropathy G62.9 [facility] [address] [address] Oct, Hypertension, benign I10 and Anxiety F41 .9 [facility] [address] [address] Oct, [facility] [address] [address] Oct, [facility] [address] [address] Oct, [facility] [address] [address] Oct, Neuropathy G62.9 [facility] [address] [address] Sep, [facility] [address] [address] Sep, Neuropathy G62.9 [facility] [address] [address] Sep, [facility] [address] [address] Sep, H/O malignant carcinoid tumor of rectum Z85.040 and Primary insomnia F51.01 [facility] [address] [address] Aug, [facility] [address] [address] Aug, Neuropathy G62.9 [facility] [address] [address] Aug, [facility] [address] [address] Jul, Non-recurrent acute suppurative otitis m edia of left ear without spontaneous rupture of tympanic membrane H66.002 [facility] [address] [address] Jul, Neuropathy G62.9 [facility] [address] [address] Jun, [facility] [address] [address] Jun, [facility] [address] [address] Jun, Neuropathy G62.9 [facility] [address] [address] Jun, [facility] [address] [address] Jun, [facility] [address] [address] Jun, Lumbar neuritis M54.16 [facility] [address] [address] May, Neuropathy G62.9 [facility] [address] [address] May, [facility] [address] [address] May, Neuropathy G62.9 and Hypertension, benig n I10 [facility] [address] [address] 09 Apr, 2018 Polyneuropathy G62.9 and Hypertension, b enign I10 [facility] [address] [address] 17 Mar, 2018 Chronic pain syndrome G89.4 and Hyperten shalini, benign I10 [facility] [address] [address] Mar, Polyneuropathy G62.9 and Hypertension, b enign I10 [facility] [address] [address] Feb, [facility] [place] [address] [address] Feb, Hypertension, benign I10 [facility] [place] [address] [address] 15 Feb, 2018 Hypertension, benign I10 ; Polyneuropath y G62.9 and Primary insomnia F51.01 [facility] [address] [address] Jan, Hypertension, benign I10 and Polyneuropa thy G62.9 [facility] [address] [address] Jan, Hypertension, benign I10 and Neuropathy G62.9 [facility] [address] [address] Jan, [facility] [address] [address] Dec, Polyneuropathy G62.9 [facility] [address] [address] Dec, Mood disorder F39 [facility] [address] [address] November, Polyneuropathy G62.9 [facility] [address] [address] November, Medicare annual wellness visit, initial Z00.00 [facility] [address] [address] November, Mood disorder F39 [facility] [address] [address] Oct, Polyneuropathy G62.9 [facility] [address] [address] Oct, [facility] [address] [address] Oct, [facility] [address] [address] Oct, Mood disorder F39 ; Attention to urostom y Z43.6 ; Chronic pain syndrome G89.4 and Polyneuropathy G62.9 [facility] [id number] [place] [address] Sep, Polyneuropathy G62.9 [facility] [address] [address] Sep, [facility] [id number] [place] [address] Sep, Polyneuropathy G62.9 [facility] [id number] [place] [address] Aug, Polyneuropathy G62.9 [facility] [address] [address] Aug, Malignant neoplasm of colon, unspecified part of colon C18.9 and Polyneuropathy G62.9 [facility] [address] [address] Aug, Neuropathy G62.9 and Polyneuropathy G62. 9 [facility] [address] [address] Jul, Encounter for drug screening Z02.83 [facility] [address] [address] Jul, Polyneuropathy G62.9 [facility] [address] [address] Jul, [facility] [address] [address] Jul, Neuropathy G62.9 and Anxiety F41.9 [facility] [address] [address] Jul, [facility] [address] [address] Jul, [facility] [address] [address] Jul, [facility] [address] [address] Jul, Polyneuropathy G62.9 [facility] [address] [address] Jul, [facility] [address] [address] Jun, [facility] [address] [address] Jun, [facility] [address] [address] Jun, [facility] [address] [id number] [place] [address] Jun, Encounter for dental examina tion Z01.20 [facility] [address] [address] Jun, Polyneuropathy G62.9 and Anxiety F41.9 [facility] [address] [address] Jun, [facility] [address] [facility] [address] May, Dental examination Z01.20 [facility] [address] [address] May, Polyneuropathy G62.9 [facility] [address] [address] Apr, Polyneuropathy G62.9 [facility] [address] [address] Apr, Polyneuropathy G62.9 [facility] [address] [address] Apr, Hypertension, benign I10 ; Polyneuropath y G62.9 and Anxiety F41.9 [facility] [address] [address] Apr, Primary insomnia F51.01 and Polyneuropat hy G62.9 [facility] [address] [address] Apr, Primary insomnia F51.01 and Polyneuropat hy G62.9 [facility] [address] [address] Mar, Primary insomnia F51.01 [facility] [address] [id number] [place] [address] Mar, [facility] [address] [facility] [place] [address] Mar, Polyneuropathy G62.9 [facility] [id number] [place] [address] Feb, Primary insomnia F51.01 [facility] [address] [facility] [place] [address] Feb, [facility] [id number] [place] [address] Feb, [facility] [id number] [place] [address] Feb, Polyneuropathy G62.9 [facility] [id number] [place] [address] Feb, Primary insomnia F51.01 [facility] [address] [facility] [place] [address] Jan, [facility] [id number] [place] [address] Jan, [facility] [id number] [place] [address] Dec, [facility] [id number] [place] [address] Dec, Primary insomnia F51.01 [facility] [address] [facility] [place] [address] Dec, Primary insomnia F51.01 [facility] [id number] [place] [address] Dec, [facility] [id number] [place] [address] Dec, [facility] [id number] [place] [address] Dec, [facility] [id number] [place] [address] Dec, [facility] [address] [address] November, Primary insomnia F51.01 and Polyneuropat hy G62.9 [facility] [address] [address] November, [facility] [address] [address] November, Abdominal pain, left lower quadrant R10. 32 [facility] [address] [address] November, [facility] [address] [address] Oct, [facility] [address] [address] Oct, Abdominal pain, left lower quadrant R10. 32 ; H/O malignant carcinoid tumor of rectum Z85.040 and Neuropathy G62.9 [facility] [address] [address] Oct, [facility] [address] [address] Sep, [facility] [id number] [id number] Sep, [facility] [id number] [place] [address] Sep, [facility] [id number] [place] [address] Aug, [facility] [address] [address] Aug, [facility] [address] [address] Aug, Abdominal pain, left lower quadrant R10. 32 ; Neuropathy G62.9 and Anxiety F41.9 [facility] [address] [place] [address] Jul, [facility] [address] [address] Jul, [facility] [address] [facility] [id number] [place] [address] Jul, [facility] [address] [address] Jul, [facility] [address] [address] Jul, [facility] [address] [address] Jun, [facility] [address] [address] May, [facility] [address] [address] May, [facility] [address] [address] Apr, [facility] [address] [address] Apr, Muscle spasms of both lower extremities M62.838 and Cellulitis, unspecified cellulitis site L03.90 [facility] [address] [address] Apr, [facility] [address] [address] 23 Mar, 2016 Generalized abdominal pain R10.84 [facility] [address] [address] 20 Mar, 2016 [facility] [address] [address] 14 Mar, 2016 [facility] [address] [address] 14 Mar, 2016 [facility] [address] [place] [address] 13 Mar, 2016 [facility] [address] [id number] [place] [address] 12 Mar, 2016 [facility] [id number] [place] [address] Mar, [facility] [address] [id number] [place] [address] Mar, [facility] [id number] [place] [address] Feb, Other specified diseases of anus and rec wilton K62.89 [facility] [id number] [place] [address] Feb, [facility] [id number] [place] [address] Feb, Dizziness R42 [facility] [id number] [place] [address] Feb, [facility] [id number] [place] [address] Jan, Polyneuropathy G62.9 [facility] [id number] [place] [address] Jan, Other specified diseases of anus and rec wilton K62.89 [facility] [address] [id number] [place] [address] Jan, [facility] [address] [facility] [id number] [address] [place] [address] Jan, [facility] [address] [id number] [place] [address] Jan, [facility] [id number] [place] [address] Jan, Dizziness R42 [facility] [address] [facility] [place] [address] Dec, [facility] [id number] [place] [address] Dec, [facility] [id number] [place] [address] Dec, [facility] [id number] [place] [address] Dec, Dizziness R42 [facility] [id number] [place] [address] November, [facility] [id number] [place] [address] Oct, [facility] [id number] [place] [address] Oct, [facility] [id number] [place] [address] Oct, [facility] [id number] [place] [address] Oct, [facility] [id number] [place] [address] Sep, [facility] [id number] [place] [address] Sep, Primary insomnia F51.01 [facility] [id number] [place] [address] Sep, Primary insomnia F51.01 [facility] [id number] [place] [address] Sep, [facility] [id number] [place] [address] Aug, [facility] [id number] [place] [address] Aug, [facility] [id number] [place] [address] Aug, Primary insomnia F51.01 ; Mood disorder F39 ; Nausea and vomiting, unspecified intactability, vomiting of unspecified type R11.2 and Diarrhea R19.7 [facility] [id number] [place] [address] 15 Aug, 2015 [facility] [address] [address] Aug, Folliculitis L73.9 [facility] [id number] [place] [address] Aug, [facility] [address] [address] Aug, [facility] [address] [address] Jul, Folliculitis L73.9 [facility] [address] [address] Jul, [facility] [address] [address] Jun, Folliculitis L73.9 [facility] [address] [address] Jun, [facility] [address] [address] May, Polyneuropathy G62.9 [facility] [address] [address] May, Other specified diseases of anus and rec wilton K62.89 [facility] [address] [address] May, [facility] [address] [address] May, Primary insomnia F51.01 [facility] [address] [address] May, [facility] [address] [address] May, [facility] [address] [address] Apr, Other specified diseases of anus and rec wilton K62.89 ; Chronic fatigue R53.82 ; Urinary tract infection, site not specified N39.0 and Enterococcus as the cause of diseases classified elsewhere B95.2 [facility] [id number] [place] [address] 16 Apr, 2015 [facility] [id number] [place] [address] 15 Apr, 2015 [facility] [id number] [place] [address] 14 Apr, 2015 Unspecified inflammatory and toxic neuro carol 357.9 [facility] [id number] [place] [address] 05 Apr, 2015 [facility] [id number] [place] [address] 26 Mar, 2015 [facility] [id number] [place] [address] 23 Mar, 2015 [facility] [id number] [place] [address] 17 Mar, 2015 [facility] [id number] [place] [address] 14 Mar, 2015 Unspecified inflammatory and toxic neuro carol 357.9 [facility] [id number] [place] [address] 12 Mar, 2015 [facility] [id number] [place] [address] 11 Mar, 2015 [facility] [id number] [place] [address] 11 Mar, 2015 [facility] [id number] [place] [address] 10 Mar, 2015 [facility] [id number] [place] [address] Feb, [facility] [id number] [place] [address] Feb, [facility] [id number] [place] [address] Feb, [facility] [id number] [place] [address] Jan, [facility] [id number] [place] [address] Jan, Nausea 787.02 and Neuropathy 355.9 [facility] [id number] [place] [address] Jan, [facility] [id number] [place] [address] Jan, [facility] [id number] [place] [address] Jan, [facility] [id number] [place] [id number] Jan, Dental examination V72.2 [facility] [id number] [place] [address] Jan, [facility] [id number] [place] [address] Dec, [facility] [id number] [place] [address] Dec, [facility] [id number] [place] [address] Dec, Neuropathy 355.9 [facility] [id number] [place] [address] November, [facility] [id number] [place] [address] November, [facility] [address] [id number] [place] [address] November, [facility] [id number] [place] [address] Oct, [facility] [id number] [place] [address] Oct, [facility] [id number] [place] [address] Sep, [facility] [address] [id number] [place] [address] Sep, [facility] [address] [id number] [place] [address] Sep, [facility] [address] [id number] [place] [address] Sep, [facility] [address] [id number] [place] [address] Sep, [facility] [address] [id number] [place] [address] Sep, [facility] [address] [id number] [place] [address] Sep, [facility] [address] [id number] [place] [address] Sep, [facility] [address] [id number] [place] [address] Aug, 2014 [facility] [address] [id number] [place] [address] Aug, 2014 [facility] [address] [id number] [place] [address] Aug, 2014 [facility] [address] [id number] [place] [address] Aug, 2014 [facility] [address] [id number] [place] [address] Aug, 2014 [facility] [address] [id number] [place] [address] Aug, 2014 [facility] [address] [id number] [place] [address] Aug, 2014 [facility] [address] [id number] [place] [address] Aug, 2014 [facility] [address] [id number] [place] [address] Jul, [facility] [address] [id number] [place] [address] Jul, [facility] [address] [id number] [place] [address] Jun, [facility] [place] [facility] [address] [id number] [place] [address] Jun, [facility] [place] [facility] [address] [id number] [place] [address] Jun, [facility] [place] [facility] [address] [id number] [place] [address] Jun, [facility] [place] [facility] [address] [id number] [place] [address] Jun, [facility] [place] [facility] [address] [id number] [place] [address] Jun, [facility] [place] [facility] [address] [id number] [place] [address] Jun, [facility] [place] [facility] [address] [id number] [place] [address] Jun, [facility] [place] [facility] [address] [id number] [place] [address] Jun, [facility] [place] [facility] [address] [id number] [place] [address] Jun, [facility] [place] [facility] [address] [id number] [place] [address] Jun, [facility] [place] [facility] [address] [id number] [place] [address] May, [facility] [place] [facility] [address] [id number] [place] [address] May, [facility] [place] [facility] [id number] [place] [address] May, [facility] [place] [facility] [address] [id number] [place] [address] May, [facility] [place] [facility] [address] [id number] [place] [address] May, [facility] [place] [facility] [address] [facility] [id number] [place] [address] May, [facility] [place] [facility] [address] [id number] [place] [address] May, [facility] [place] [facility] [address] [id number] [place] [address] May, [facility] [place] [facility] [address] [id number] [place] [address] May, [facility] [place] [facility] [address] [id number] [place] [address] Apr, [facility] [place] [facility] [address] [id number] [place] [address] Apr, [facility] [place] [facility] [address] [id number] [place] [address] Apr, [facility] [place] [facility] [address] [id number] [place] [address] Apr, [facility] [place] [facility] [address] [id number] [place] [address] Apr, [facility] [place] [facility] [address] [id number] [place] [address] Mar, [facility] [place] [facility] [address] [id number] [place] [address] Mar, [facility] [place] [facility] [address] [id number] [place] [address] Feb, [facility] [place] [facility] [address] [id number] [place] [address] Feb, [facility] [place] [facility] [address] [id number] [place] [address] Feb, [facility] [place] [facility] [address] [id number] [place] [address] Feb, [facility] [place] [facility] [address] [id number] [place] [address] Feb, [facility] [place] [facility] [address] [id number] [place] [address] Feb, [facility] [place] [facility] [address] [id number] [facility] [address] Jan, [facility] [place] [facility] [address] [facility] [id number] [facility] [place] [address] Jan, [facility] [place] [facility] [address] [facility] [id number] [place] [address] Jan, [facility] [place] [facility] [address] [id number] [facility] [place] [address] Jan, [facility] [place] [facility] [address] [facility] [id number] [place] [place] [address] Jan, [facility] [place] [facility] [address] [id number] [place] [address] Jan, [facility] [place] [facility] [address] [facility] [id number] [place] [address] Jan, [facility] [place] [facility] [address] [facility] [id number] [facility] [place] [address] Jan, [facility] [place] [facility] [address] [facility] [id number] [place] [address] Jan, [facility] [place] [facility] [address] [id number] [facility] [place] [address] Jan, [facility] [place] [facility] [address] [facility] [id number] [place] [address] Jan, [facility] [place] [facility] [address] [facility] [id number] [place] [address] Dec, [facility] [place] [facility] [address] [facility] [id number] [facility] [place] [address] Dec, [facility] [place] [facility] [address] [id number] [place] [address] Dec, [facility] [place] [facility] [address] [facility] [id number] [place] [address] Dec, [facility] [place] [facility] [address] [facility] [id number] [facility] [place] [address] Dec, [facility] [place] [facility] [address] [id number] [place] [address] Dec, [facility] [place] [facility] [address] [id number] [place] [address] November, [facility] [place] [facility] [address] [id number] [place] [address] November, [facility] [place] [facility] [address] [id number] [place] [address] November, [facility] [place] [facility] [address] [id number] [place] [address] November, [facility] [place] [facility] [address] [id number] [place] [address] November, [facility] [place] [facility] [address] [id number] [place] [address] November, [facility] [place] [facility] [address] [id number] [place] [address] Oct, [facility] [place] [facility] [address] [id number] [place] [address] Oct, [facility] [place] [facility] [address] [id number] [place] [address] Oct, [facility] [place] [facility] [address] [id number] [place] [address] Oct, [facility] [place] [facility] [address] [id number] [place] [address] Sep, [facility] [place] [facility] [address] [id number] [place] [address] Sep, [facility] [place] [facility] [address] [id number] [place] [address] Sep, [facility] [place] [facility] [address] [id number] [place] [address] Sep, [facility] [place] [facility] [address] [id number] [place] [address] Sep, [facility] [place] [facility] [address] [id number] [place] [address] Aug, [facility] [place] [facility] [address] [facility] [id number] [place] [address] Aug, [facility] [address] [id number] [place] [address] Aug, [facility] [place] [facility] [address] [id number] [place] [address] Aug, [facility] [address] [id number] [place] [address] Aug, [facility] [address] [facility] [id number] May, [facility] [address] [id number] [place] [address] May, [facility] [place] [facility] [address] [id number] [place] [address] May, [facility] [address] [id number] [place] [address] May, [facility] [place] [facility] [address] [id number] [place] [address] May, [facility] [address] [id number] [place] [address] Apr, [facility] [place] [facility] [address] [id number] [place] [address] Apr, [facility] [place] [facility] [address] [id number] [place] [address] Apr, [facility] [place] [facility] [address] [id number] [place] [address] Apr, [facility] [place] [facility] [address] [id number] [place] [address] Apr, [facility] [place] [facility] [address] [id number] [place] [address] Apr, [facility] [place] [facility] [address] [id number] [place] [address] Apr, [facility] [place] [facility] [address] [id number] [place] [address] 28 Mar, 2012 [facility] [place] [facility] [address] [id number] [facility] [address] 25 Mar, 2013 [facility] [place] [facility] [address] [facility] [id number] [facility] [address] 24 Mar, 2013 [facility] [place] [facility] [address] [id number] [place] [address] 16 Mar, 2013 [facility] [place] [facility] [address] [id number] [place] [address] 12 Mar, 2013 [facility] [place] [facility] [address] [facility] [id number] [place] [address] Mar, [facility] [place] [facility] [address] [id number] [place] [address] Feb, [facility] [place] [facility] [address] [id number] [place] [address] Feb, [facility] [place] [facility] [address] [id number] [place] [address] Feb, [facility] [place] [facility] [address] [id number] [place] [address] Feb, [facility] [place] [facility] [address] [id number] [place] [address] Feb, [facility] [place] [facility] [address] [id number] [place] [address] Feb, [facility] [place] [facility] [address] [id number] [place] [address] Jan, [facility] [place] [facility] [address] [id number] [place] [address] Dec, [facility] [place] [facility] [address] [id number] [place] [address] Dec, [facility] [place] [facility] [address] [id number] [place] [address] Dec, [facility] [place] [facility] [address] [id number] [place] [address] Dec, [facility] [place] [facility] [address] [id number] [place] [address] Dec, [facility] [place] [facility] [address] [facility] [id number] [place] [address] Dec, [facility] [place] [facility] [address] [id number] [place] [address] Dec, [facility] [place] [facility] [address] [id number] [place] [address] Dec, [facility] [place] [facility] [address] [id number] [place] [address] Dec, [facility] [place] [facility] [address] [id number] [place] [address] November, [facility] [place] [facility] [address] [id number] [place] [address] November, [facility] [place] [facility] [address] [id number] [place] [address] Oct, [facility] [place] [facility] [address] [id number] [place] [address] Sep, [facility] [place] [facility] [address] [id number] [place] [address] Sep, [facility] [place] [facility] [address] [id number] [place] [address] Sep, [facility] [place] [facility] [address] [id number] [place] [address] Sep, [facility] [place] [facility] [address] [id number] [place] [address] Aug, [facility] [place] [facility] [address] [id number] [place] [address] Aug, [facility] [place] [facility] [address] [id number] [place] [address] Jul, [facility] [place] [facility] [address] [id number] [place] [address] Jul, [facility] [place] [facility] [address] [id number] [place] [address] Jul, [facility] [address] [facility] [id number] [place] [address] Sep, [facility] [address] [id number] [place] [address] Sep, [facility] [address] [facility] [id number] [place] [address] Sep, IMMUNIZATIONS No Known Immunizations SOCIAL HISTORY [...] [facility]- UTI/Sepsis 01/18/2018 Hospitalization History [facility] - infection 4 days 05/2018
[2020-01-14 23:30] LABS: ALANINE AMINOTRANSFERASE 25 U/L (0-55); MAGNESIUM 1.7 MG/DL (1.6-2.4)
[2020-01-14] MEDS ORDERED: POTASSIUM CL 10MEQ/50ML IVPB 50 ML IV ONE (23:30)
--- NOTE | 2020-01-14 23:35 | ED Abdominal Pain ---
General Chief Complaint: Abdominal/GI Problems Stated Complaint: ABD PAIN Nursing T[facility] Note[facility]/D REPORTS UNABLE TO KEEP MEDICATIONS DOWN X2 DAYS. Sepsis Screen: No Definite Risk Source of Information: Patient Exam Limitations: No Limitations History of Present Illness Date Seen by Provider: Jan 14, 2020 Time Seen by Provider: 23:02 Initial Comments Here with report with acute onset of nausea, vomiting and diarrhea over the last 2 days. Reports unable to really eat or drink well over the last 24 hours. Does have multiple chronic medical problems including rectal cancer, bladder resection and an diverting urostomy. Patient unable to take any of his normal home medications including pain and nausea medicines. States he is not out of his medicines he just cannot keep them down. Follows with on [facility] with Leonardo Quintana. Denies fever or chills. Denies upper respiratory symptoms. Denies contact with COVID positive patient's or any significant travel history. States that he self isolates home to prevent infection. Denies blood in his vomit or stool. Timing/Duration: 1-2 Days Severity/Quality: Moderate, Cramping Location: Generalized Abdomen Modifying Factors: Worsens With Eating Associated Symptoms: No Chest Pain, No Fever/Chills; Fatigue, Nausea/Vomiting; No Shortness of Air, No Weakness Allergies and Home Medications Allergies Coded Allergies: morphine (Verified Allergy, Intermediate, 01/01/17) codeine (Verified Adverse Reaction, Unknown, NAUSEA, 01/01/17) Home Medications Amlodipine Besylate 10 Mg Tablet, 10 MG PO DAILY, (Reported) Aspirin/Acetaminophen/Caffeine 1 Each Tablet, 2 TAB PO DAILY PRN for HEADACHE, (Reported) Cefdinir 300 Mg Capsule, 300 MG PO BID Prescribed by: ABRIL KEYS on 06/12/181006 Cefuroxime Axetil 250 Mg Tablet, 250 MG PO BID Prescribed by: STEVEN MCCANN on 08/15/192040 Lisinopril 10 Mg Tablet, 10 MG PO DAILY Prescribed by: ABRIL KEYS on 06/12/181006 Metoclopramide HCl 10 Mg Tablet, 10 MG PO ACHS Prescribed by: ABRIL KEYS on 06/12/181006 Omeprazole 40 Mg Capsule.dr, 40 MG PO DAILY Prescribed by: ABRIL KEYS on 06/12/181006 Ondansetron 8 Mg Tab.rapdis, 8 MG PO Q8H PRN for NAUSEA/VOMITING-1ST LINE Prescribed by: ABRIL KEYS on 06/12/18 1007 Oxycodone HCl 30 Mg Tablet, 30 MG PO BID PRN for SEVERE PAIN, (Reported) Oxycodone HCl/Acetaminophen 1 Each Tablet, 1 TAB PO Q4H, (Reported) Pregabalin 150 Mg Capsule, 150 MG PO TID, (Reported) Promethazine HCl 25 Mg Tablet, 25 MG PO Q6H PRN for NAUSEA/VOMITING-2ND LINE, (Reported) Scopolamine 1 Each Patch.td.3, 1 EACH TD Q72H Prescribed by: ABRIL KEYS on 06/12/18 1007 Sertraline HCl 100 Mg Tablet, 100 MG PO DAILY PRN for EMOTIONS, (Reported) Patient Home Medication List Home Medication List Reviewed: Yes Review of Systems Review of Systems Constitutional: see HPI; No chills, No fever EENTM: See HPI; No Nose Pain, No Throat Pain Respiratory: Denies Cough, Denies Shortness of Air Cardiovascular: No Symptoms Reported Gastrointestinal: See HPI, Abdominal Pain, Diarrhea, Nausea, Vomiting Genitourinary: No Symptoms Reported Musculoskeletal: no symptoms reported All Other Systems Reviewed Negative Unless Noted: Yes Past Vwclanz-Zyldwf-Ihgsiu Hx Past Med/Social Hx: Reviewed Nursing Past Med/Soc Hx Patient Social History Alcohol Use: Denies Use Recreational Drug Use: No Smoking Status: Never a Smoker 2nd Hand Smoke Exposure: No Recent Foreign Travel: No Contact w/Someone Who Travel: No Recent Infectious Disease Expo: No Recent Hopitalizations: No Physical Abuse: No Sexual Abuse: No Mistreated: No Fear: No Immunizations Up To Date Tetanus Booster (TDap): Unknown PED Vaccines UTD: No Seasonal Allergies Seasonal Allergies: No Past Medical History Surgeries: Yes (urostomy, colonresection) Abdominal, Bladder Surgery, Bowel Surgery, Cystectomy, Orthopedic, Rectal, Re nal, Vascular Surgery Respiratory: No Currently Using CPAP: No Currently Using BIPAP: No Cardiac: Yes High Cholesterol, Hypertension Neurological: Yes Headaches /Migraines Reproductive Disorders: Yes (E.D.) Sexually Transmitted Disease: No HIV/AIDS: No Genitourinary: Yes Neurogenic Bladder, UTI-Chronic Gastrointestinal: Yes Colitis Musculoskeletal: No Endocrine: No HEENT: No Loss of Vision: Denies Hearing Impairment: Denies Cancer: Yes Rectal Did You Recieve Any Treatments: Yes What Type of Treatment Did You: Chemotherapy, Radiation, Surgical Intervention Psychosocial: Yes Anxiety, Depression Integumentary: No Blood Disorders: No Adverse Reaction/Blood Tranf: No Family Medical History Reviewed Nursing Family Hx Cataract 03 FATHER, Onset:Unknown Chest pain 03 FATHER, Onset:50's - 60 Family history: Allergy 03 MOTHER Family history: Arthritis 03 FATHER 03 MOTHER Family history: Asthma 03 MOTHER Family history: Cardiovascular disease 03 FATHER Family history: Diabetes mellitus 03 FATHER 03 MOTHER Family history: Hypertension 03 FATHER 03 MOTHER Headache 03 FATHER 03 MOTHER Heart disease 03 FATHER History of - respiratory disease 03 MOTHER Hypercholesterolemia 03 FATHER 03 MOTHER Kidney disease 03 MOTHER Psychotic disorder 03 MOTHER Visual impairment 03 FATHER 03 MOTHER No Family History of: Abdominal aortic aneurysm Tift's disease Alcoholism Aphasia Cancer Cancer of colon Congenital heart disease Congestive heart failure Cystic fibrosis Dementia Dysphagia Family history: Alzheimer's disease Family history: Breast disease Family history: Coronary thrombosis Family history: Gastrointestinal disease Family history: Glaucoma Family history: Osteoporosis Family history: Thyroid disorder Hearing loss Hereditary disease History of - anemia History of - disorder History of drug abuse Human immunodeficiency virus (HIV) seropositivity Infertile Malignant neoplasm of lung Myocardial infarction Parkinson's disease Prostate cancer Seizure disorder Stroke Tuberculosis CAD Under 55 Years Old, COPD, Diabetes, Hypertension Physical Exam Vital Signs Vital Signs - First Documented 01/14/20 22:55 Temp 36.8 Pulse 52 Resp 18 B/P (MAP) 183/124 (143) Pulse Ox 99 O2 Delivery Room Air Capillary Refill : Less Than 3 Seconds Height/Weight/BMI Height: 5'7.00" Weight: 197lbs. 3.0oz. [id number]; 33.00 BMI Method:Estimated General Appearance: WD/WN, no apparent distress HEENT: PERRL/EOMI, pharynx normal Neck: full range of motion, supple Respiratory: lungs clear, normal breath sounds Cardiovascular: regular rate, rhythm, no murmur Gastrointestinal: soft, tenderness (diffuse mild) Extremities: non-tender, normal inspection Back: normal inspection, no CVA tenderness, no vertebral tenderness Neurologic/Psychiatric: alert, oriented x 3 Skin: normal color, warm/dry Progress/Results/Core Measures Results/Orders Lab Results Laboratory Tests Test 01/14/20 23:05 Range/Units White Blood Count 10.3 4.3-11.0 10^3/uL Red Blood Count 5.35 4.35-5.85 10^6/uL Hemoglobin 14.4 13.3-17.7 G/DL Hematocrit 41 40-54 % Mean Corpuscular Volume 77 L 80-99 FL Mean Corpuscular Hemoglobin 27 25-34 PG Mean Corpuscular Hemoglobin Concent 35 32-36 G/DL Red Cell Distribution Width 14.9 H 10.0-14.5 % Platelet Count 267 130-400 10^3/uL Mean Platelet Volume 10.7 H 7.4-10.4 FL Neutrophils (%) (Auto) 71 42-75 % Lymphocytes (%) (Auto) 22 12-44 % Monocytes (%) (Auto) 7 0-12 % Eosinophils (%) (Auto) 0 0-10 % Basophils (%) (Auto) 0 0-10 % Neutrophils # (Auto) 7.4 1.8-7.8 X 10^3 Lymphocytes # (Auto) 2.3 1.0-4.0 X 10^3 Monocytes # (Auto) 0.7 0.0-1.0 X 10^3 Eosinophils # (Auto) 0.0 0.0-0.3 10^3/uL Basophils # (Auto) 0.0 0.0-0.1 10^3/uL Sodium Level 141 135-145 MMOL/L Potassium Level 2.8 L 3.6-5.0 MMOL/L Chloride Level 106 98-107 MMOL/L Carbon Dioxide Level 22 21-32 MMOL/L Anion Gap 13 5-14 MMOL/L Blood Urea Nitrogen 14 7-18 MG/DL Creatinine 1.13 0.60-1.30 MG/DL Estimat Glomerular Filtration Rate > 60 BUN/Creatinine Ratio 12 Glucose Level 110 H 70-105 MG/DL Calcium Level 9.5 8.5-10.1 MG/DL Corrected Calcium 9.1 8.5-10.1 MG/DL Magnesium Level 1.7 1.6-2.4 MG/DL Total Bilirubin 0.9 0.1-1.0 MG/DL Aspartate Amino Transf (AST/SGOT) 23 5-34 U/L Alanine Aminotransferase (ALT/SGPT) 25 0-55 U/L Alkaline Phosphatase 79 40-136 U/L C-Reactive Protein High Sensitivity 0.90 H 0.00-0.50 MG/DL Total Protein 7.7 6.4-8.2 GM/DL Albumin 4.5 3.2-4.5 GM/DL My Orders Orders - WAYLON TAYLOR MD Ed Iv/Invasive Line Start (01/14/20 23:05) Lactated Ringers (Lr 1000 Ml Iv Solution (01/14/20 23:05) Promethazine Injection (Phenergan Injec (01/14/20 23:05) Fentanyl Injection (Sublimaze Injection (01/14/20 23:05) Cbc With Automated Diff (01/14/20 23:07) Comprehensive Metabolic Panel (01/14/20 23:07) Hs C Reactive Protein (01/14/20 23:07) Magnesium (01/14/20 23:07) Potassium Cl 10meq/50ml Ivpb (Kcl 10 Meq (01/14/20 23:30) Fentanyl Injection (Sublimaze Injection (01/15/20 00:05) Ondansetron Injection (Zofran Injectio (01/15/20 00:30) Ketorolac Injection (Toradol Injection) (01/15/20 01:26) Lorazepam Injection (Ativan Injection) (01/15/20 01:30) Promethazine Injection (Phenergan Injec (01/15/20 02:46) Hydralazine Injection (Apresoline Inject (01/15/20 03:00) Ns (Ivpb) (Sodium Chloride 0.9% Ivpb Bag (01/15/20 02:50) Ct Abdomen/Pelvis W (01/15/20 03:20) Fentanyl Injection (Sublimaze Injection (01/15/20 03:30) Iohexol Injection (Omnipaque 350 Mg/Ml 1 (01/15/20 04:30) Ns (Ivpb) (Sodium Chloride 0.9% Ivpb Bag (01/15/20 04:30) Medications Given in ED Current Medications Medications Dose Ordered Sig/Kenny Route Start Time Stop Time Status Last Admin Dose Admin Hydralazine HCl 10 mg ONCE ONCE IV 01/15/20 03:00 01/15/20 03:01 DC 01/15/20 02:58 10 MG Iohexol 100 ml ONCE ONCE IV 01/15/20 04:30 01/15/20 04:31 UNV 01/15/20 04:20 100 ML Lactated Ringer's 1,000 ml @ 0 mls/hr Q0M ONCE IV 01/14/20 23:05 01/14/20 23:07 DC 01/14/20 23:10 0 MLS/HR Lorazepam 0.5 mg ONCE ONCE IVP 01/15/20 01:30 01/15/20 01:31 DC 01/15/20 01:39 0.5 MG Ondansetron HCl 8 mg ONCE ONCE IVP 01/15/20 00:30 01/15/20 00:31 DC 01/15/20 00:30 8 MG Potassium Chloride 50 ml @ 50 mls/hr ONCE ONCE IV 01/14/20 23:30 01/15/20 00:29 DC 01/14/20 23:38 50 MLS/HR Sodium Chloride 50 ml @ ud STK-MED ONCE .ROUTE 01/15/20 02:50 01/15/20 02:52 DC 01/15/20 02:59 999 MLS/HR Sodium Chloride 80 ml ONCE ONCE IV 01/15/20 04:30 01/15/20 04:31 UNV 01/15/20 04:20 80 ML Vital Signs/I&O 01/14/20 22:55 Temp 36.8 Pulse 52 Resp 18 B/P (MAP) 183/124 (143) Pulse Ox 99 O2 Delivery Room Air Blood Pressure Mean: 143 Progress Progress Note : Progress Note Seen and evaluated. History reviewed. Patient well-known to me. We will establish IV and check basic labs. LR 1 L bolus. Fentanyl 100 g IV and Phenergan 25 mg IV which is usually very effective and resolving acute nausea and vomiting episodes and him. Monitor patient. 2335: Potassium noted to be 2.8. KCl 10 mEq IV ordered. Monitor patient. 0300: Patient has additionally received second dose of fentanyl 100 g IV as well as Toradol 80 mg IV and Ativan 0.5 mg IV for continuation of symptoms. Despite this he is still vomiting. We will try 1 more dose of Phenergan see if we can resolve his symptoms. Usually he is able to go home but occasionally has intractable nausea and vomiting. He would like to try this and see if he can still go home as that would be his preference. I'm hesitant to CT scan his abdomen and pelvis given the significant number of previous scans on him. He agrees we will continue to monitor for now and see if he improves with the Phenergan. Blood pressure is elevated. Hydralazine 10 mg IV given. Monitor patient. 0430: Repeat dose of fentanyl [address] scan of the abdomen and pelvis ordered due to persistent intractable abdominal pain and nausea and vomiting. Monitor patient. 0507: CT does not reveal any significant findings. I did discuss the case with Dr. Keys and she accepts patient for admission, inpatient status. Requested consult with Dr. Hills which was ordered for the a.m. We will continue potassium replacement. Patient agrees to plan. Diagnostic Imaging Diagonstic Imaging: CT Plain Films/CT/US/NM/MRI: abdomen, pelvis Comments Hepatic steatosis. Mild splenomegaly. Status post cystectomy with the left lower quadrant urinary diversion. Postsurgical changes within the bowel. There is apparently thickening of the sigmoid colon which may be secondary to under distention versus a nonspecific colitis. Departure Communication (Admissions) Time/Spoke to Admitting Phy: 05:05 Impression Primary Impression: Intractable nausea and vomiting Additional Impressions: Intractable abdominal pain Hypokalemia Disposition: ADMITTED INPATIENT Condition: Stable Admissions Decision to Admit Reason: Admit from ER (General) Decision to Admit/Date: Jan 15, 2020 Time/Decision to Admit Time: 05:05 Departure-Patient Inst. Referrals: NIKHIL PITTS DO (PCP) Primary Care Physician LINDA BENTLEY (Family) Primary Care Physician WAYLON TAYLOR MD Jan 14, 2020 23:35
--- OUTSIDE RECORDS SUMMARY | 2020-01-14 23:37 | XMS REPORT | Continuity of Care Document ---
Author Organization Unknown Address Unknown Phone Unavailable Allergies Active Description Code Type Severity Reaction Onset Reported/Identified Relationship to Patient Clinical Status Yes CODEINE SULFATE M ODERATE GI PROBLEMS - NAUSEA Yes MORPHINE MODERATE ITCHING Yes trazodone 50 mg tablet Drug Allergy 10/17/2012 Yes trazodone 50 mg tablet Drug Allergy N/A N/A 10/17/2012 Yes codeine [id number] Drug Allergy Unknown NAUSEA 01/01/2017 Yes morphine [id number] Drug Allergy Moderate N/A 01/01/2017 Medications Medication Packaging Start Date St op Date Route Dosage Sig LACTATED RINGERS 1000CC IV BAG INJ ml 04/13/2018 04/20/2018 CONTINUOUSEVERY 0 Hour FENTANYL INJ 100 MCG/2CC VIAL MCG 04/16/2018 04/16/2018 [id number] Problems Date Dx Coded Attending Type Code [...] VIRAJ SOLIS, ROXI Oseguera Ot 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 06/15/1108 VIRAJ SOLIS, ROXI Oseguera Ot Z92.3 PERSONAL HISTORY OF IRRADIATION 06/17/2011 Ot 729.5 PAIN IN LIMB 09/24/2011 796.2 PREH YPERTENSION 09/24/2011 LINDA BENTLEY APRN 79 6.2 PREHYPERTENSION 09/24/2011 796.2 PREH YPERTENSION 09/24/2011 SANTOS SOLIS, ADOLPH Jon 79 6.2 PREHYPERTENSION 09/24/2011 LINDA BENTLEY APRN 79 6.2 PREHYPERTENSION 09/24/2011 LINDA BENTLEY APRN T 79 6.2 PREHYPERTENSION 09/24/2011 796.2 PREH YPERTENSION 09/24/2011 796.2 PREH YPERTENSION 09/24/2011 796.2 PREH YPERTENSION 09/24/2011 796.2 PREH YPERTENSION 09/24/2011 796.2 PREH YPERTENSION 09/24/2011 PITTS NIKHIL DICKSON Ana Rosa 796.2 PREHYPERTENSION 09/24/2011 LINDA BENTLEY APRN T 79 6.2 PREHYPERTENSION 09/24/2011 RIVER ARCE MD 796.2 PREHYPERTENSION 09/24/2011 ADOLPH GRAHAM MD 79 6.2 PREHYPERTENSION 09/24/2011 LINDA BENTLEY APRN 79 6.2 PREHYPERTENSION 09/24/2011 JANINE HERNDON MD N 796 .2 PREHYPERTENSION 09/24/2011 LINDA BENTLEY APRN 79 6.2 PREHYPERTENSION 09/24/2011 LINDA BENTLEY APRN 79 6.2 PREHYPERTENSION 09/24/2011 LINDA BENTLEY APRN 79 6.2 PREHYPERTENSION 09/24/2011 LINDA BENTLEY APRN T 79 6.2 PREHYPERTENSION 09/24/2011 LINDA BENTLEY APRN T 79 6.2 PREHYPERTENSION 09/24/2011 LINDA BENTLEY APRN T 79 6.2 PREHYPERTENSION 09/24/2011 LINDA BENTLEY APRN T 79 6.2 PREHYPERTENSION 09/24/2011 LINDA BENTLEY APRN T 79 6.2 PREHYPERTENSION 09/24/2011 LINDA BENTLEY APRN 79 6.2 PREHYPERTENSION 09/24/2011 JANINE HERNDON MD N 796 .2 PREHYPERTENSION 09/24/2011 LINDA BENTLEY APRN 79 6.2 PREHYPERTENSION 09/24/2011 JANINE HERNDON MD N 796 .2 PREHYPERTENSION 10/01/2011 401.1 ESSE NTIAL HYPERTENSION BENIGN 10/01/2011 LINDA BENTLEY APRN 40 1.1 ESSENTIAL HYPERTENSION BENIGN 10/01/2011 401.1 ESSE NTIAL HYPERTENSION BENIGN 10/01/2011 ADOLPH GRAHAM MD M 40 1.1 ESSENTIAL HYPERTENSION BENIGN 10/01/2011 LINDA BENTLEY APRN 40 1.1 ESSENTIAL HYPERTENSION BENIGN 10/01/2011 SHEREE [employer], LINDA T 40 1.1 ESSENTIAL HYPERTENSION BENIGN 10/01/2011 401.1 ESSE NTIAL HYPERTENSION BENIGN 10/01/2011 401.1 ESSE NTIAL HYPERTENSION BENIGN 10/01/2011 401.1 ESSE NTIAL HYPERTENSION BENIGN 10/01/2011 401.1 ESSE NTIAL HYPERTENSION BENIGN 10/01/2011 401.1 ESSE NTIAL HYPERTENSION BENIGN 10/01/2011 HONG DICKSONNIKHIL 401.1 ESSENTIAL HYPERTENSION BENIGN 10/01/2011 LINDA BENTLEY APRN T 40 1.1 ESSENTIAL HYPERTENSION BENIGN 10/01/2011 RIVER ARCE MD 401.1 ESSENTIAL HYPERTENSION BENIGN 10/01/2011 SANTOS SOLIS, ADOLPH Jon 40 1.1 ESSENTIAL HYPERTENSION BENIGN 10/01/2011 LINDA BENTLEY APRN T 40 1.1 ESSENTIAL HYPERTENSION BENIGN 10/01/2011 JANINE HERNDON MD 401 .1 ESSENTIAL HYPERTENSION BENIGN 10/01/2011 LINDA BENTLEY APRN T 40 1.1 ESSENTIAL HYPERTENSION BENIGN 10/01/2011 LINDA BENTLEY APRN T 40 1.1 ESSENTIAL HYPERTENSION BENIGN 10/01/2011 LINDA BENTLEY APRN T 40 1.1 ESSENTIAL HYPERTENSION BENIGN 10/01/2011 LINDA BENTLEY APRN T 40 1.1 ESSENTIAL HYPERTENSION BENIGN 10/01/2011 LINDA BENTLEY APRN T 40 1.1 ESSENTIAL HYPERTENSION BENIGN 10/01/2011 LINDA BENTLEY APRN T 40 1.1 ESSENTIAL HYPERTENSION BENIGN 10/01/2011 LINDA BENTLEY APRN T 40 1.1 ESSENTIAL HYPERTENSION BENIGN 10/01/2011 LINDA BENTLEY APRN T 40 1.1 ESSENTIAL HYPERTENSION BENIGN 10/01/2011 LINDA BENTLEY APRN T 40 1.1 ESSENTIAL HYPERTENSION BENIGN 10/01/2011 JANINE HERNDON MD N 401 .1 ESSENTIAL HYPERTENSION BENIGN 10/01/2011 LINDA BENTLEY APRN T 40 1.1 ESSENTIAL HYPERTENSION BENIGN 10/01/2011 JANINE HERNDON MD N 401 .1 ESSENTIAL HYPERTENSION BENIGN 08/03/2012 578.1 BLOO D IN STOOL 08/03/2012 LINDA BENTLEY APRN 57 8.1 BLOOD IN STOOL 08/03/2012 578.1 BLOO D IN STOOL 08/03/2012 SANTOS SOLIS, ADOLPH M 57 8.1 BLOOD IN STOOL 08/03/2012 LINDA BENTLEY APRN 57 8.1 BLOOD IN STOOL 08/03/2012 [employer], LINDA T 57 8.1 BLOOD IN STOOL 08/03/2012 578.1 BLOO D IN STOOL 08/03/2012 578.1 BLOO D IN STOOL 08/03/2012 578.1 BLOO D IN STOOL 08/03/2012 578.1 BLOO D IN STOOL 08/03/2012 578.1 BLOO D IN STOOL 08/03/2012 HONG DICKSONNIKHIL Ana Rosa 578.1 BLOOD IN STOOL 08/03/2012 LINDA BENTLEY APRN T 57 8.1 BLOOD IN STOOL 08/03/2012 RIVER ARCE MD 578.1 BLOOD IN STOOL 08/03/2012 SANTOS SOLIS, ADOLPH Jon 57 8.1 BLOOD IN STOOL 08/03/2012 LINDA BENTLEY APRN T 57 8.1 BLOOD IN STOOL 08/03/2012 JANINE HERNDON MD N 578 .1 BLOOD IN STOOL 08/03/2012 LINDA BENTLEY APRN T 57 8.1 BLOOD IN STOOL 08/03/2012 LINDA BENTLEY APRN T 57 8.1 BLOOD IN STOOL 08/03/2012 LINDA BENTLEY APRN T 57 8.1 BLOOD IN STOOL 08/03/2012 LINDA BENTLEY APRN T 57 8.1 BLOOD IN STOOL 08/03/2012 LINDA BENTLEY APRN T 57 8.1 BLOOD IN STOOL 08/03/2012 LINDA BENTLEY APRN T 57 8.1 BLOOD IN STOOL 08/03/2012 LINDA BENTLEY APRN T 57 8.1 BLOOD IN STOOL 08/03/2012 LINDA BENTLEY APRN T 57 8.1 BLOOD IN STOOL 08/03/2012 LINDA BENTLEY APRN T 57 8.1 BLOOD IN STOOL 08/03/2012 JANINE HERNDON MD N 578 .1 BLOOD IN STOOL 08/03/2012 LINDA BENTLEY APRN 57 8.1 BLOOD IN STOOL 08/03/2012 JANINE HERNDON MD N 578 .1 BLOOD IN STOOL 08/30/2012 Ot 154.1 SAGAR GNANT NEOPL RECTUM 08/30/2012 Ot 211.3 CONSTANCE GN NEOPLASM LG BOWEL 08/30/2012 Ot 280.0 CHR BLOOD LOSS ANEMIA 10/03/2012 LINDA BENTLEY APRN 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 OR MAINTAINING SLEEP 10/03/2012 LINDA BENTLEY APRN 569.42 ANAL OR RECTAL PAIN 10/03/2012 LINDA BENTLEY APRN 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 OR MAINTAINING SLEEP 10/03/2012 LINDA BENTLEY APRN 569.42 ANAL OR RECTAL PAIN 10/03/2012 307.42 PER SISTENT DISORDER OF INITIATING OR MAINTAINING SLEEP 10/03/2012 569.42 DWIGHT OR RECTAL PAIN 10/03/2012 307.42 PER SISTENT DISORDER OF INITIATING OR MAINTAINING SLEEP 10/03/2012 569.42 DWIGHT OR RECTAL PAIN 10/03/2012 307.42 PER SISTENT DISORDER OF INITIATING OR MAINTAINING SLEEP 10/03/2012 569.42 DWIGHT OR RECTAL PAIN 10/03/2012 307.42 PER SISTENT DISORDER OF INITIATING OR MAINTAINING SLEEP 10/03/2012 569.42 DWIGHT OR RECTAL PAIN 10/03/2012 307.42 PER SISTENT DISORDER OF INITIATING OR MAINTAINING SLEEP 10/03/2012 569.42 DWIGHT OR RECTAL PAIN 10/03/2012 PITTS NIKHIL DICKSON 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 OR MAINTAINING SLEEP 10/03/2012 PITTS NIKHIL DICKSON 569.42 ANAL OR RECTAL PAIN 10/03/2012 LINDA BENTLEY APRN 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 OR MAINTAINING SLEEP 10/03/2012 LINDA BENTLEY APRN 569.42 ANAL OR RECTAL PAIN 10/03/2012 RIVER ARCE MD 307.4 2 PERSISTENT DISORDER OF INITIATING OR MAINTAINING SLEEP 10/03/2012 RIVER ARCE MD 569.4 2 ANAL OR RECTAL PAIN 10/03/2012 SANTOS SOLIS, ADOLPH Jon 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 OR MAINTAINING SLEEP 10/03/2012 SANTOS SOLIS, ADOLPH Jon 569.42 ANAL OR RECTAL PAIN 10/03/2012 LINDA BENLTEY APRN 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 OR MAINTAINING SLEEP 10/03/2012 LINDA BENTLEY APRN 569.42 ANAL OR RECTAL PAIN 10/03/2012 JANINE HERNDON MD 307 .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 DISORDER OF INITIATING OR MAINTAINING SLEEP 10/03/2012 JANINE HERNDON MD 569 .42 ANAL OR RECTAL PAIN 10/03/2012 LINDA BENTLEY [...] T 569.42 ANAL OR RECTAL PAIN 10/03/2012 JANINE HERNDON MD 307 .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 DISORDER OF INITIATING OR MAINTAINING SLEEP 10/03/2012 JANINE HERNDON MD 569 .42 ANAL OR RECTAL PAIN 10/03/2012 LINDA BENTLEY APRN T 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 OR MAINTAINING SLEEP 10/03/2012 LINDA BENTLEY APRN T 569.42 ANAL OR RECTAL PAIN 10/03/2012 JANINE HERNDON MD 307 .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 DISORDER OF INITIATING OR MAINTAINING SLEEP 10/03/2012 JANINE HERNDON MD 569 .42 ANAL OR RECTAL PAIN 11/27/2012 SANTOS SOLIS, ADOLPH Jon Ot 154.1 MALIGNANT NEOPL RECTUM 11/27/2012 SANTOS SOLIS, ADOLPH Jon Ot V15.3 HX OF IRRADIATION 11/27/2012 SANTOS SOLIS, ADOLPH Jon Ot V87.41 PERSONAL HISTORY OF ANTINEOPLASTIC CHEMO 12/10/2012 VIRAJ SOLIS, ROXI Oseguera Ot 154.1 MALIGNANT NEOPL RECTUM 12/10/2012 VIRAJ SOLIS, ROXI Oseguera Ot 285.9 ANEMIA NOS 12/10/2012 VIRAJ SOLIS, ROXI Oseguera Ot V58.0 ENCOUNTER FOR RADIOTHERAPY 12/17/2012 SANTOS SOLIS, ADOLPH Jon Ot 154.1 MALIGNANT NEOPL RECTUM 12/17/2012 SANTOS SOLIS, ADOLPH Jon Ot 275.3 DIS PHOSPHORUS METABOL 12/17/2012 SANTOS SOLIS, ADOLPH Jon Ot 276.8 HYPOPOTASSEMIA 12/17/2012 SANTOS SOLIS, ADOLPH Jon Ot 560.1 PARALYTIC ILEUS 12/17/2012 SANTOS SOLIS, ADOLPH Jon Ot 596.54 NEUROGENIC BLADDER, NOT OTHERWISE SPECIF 12/17/2012 SANTOS SOLIS, ADOLPH Jon Ot 788.20 RETENTION OF URINE NOS 12/17/2012 SANTOS SOLIS, ADOLPH Jon Ot 997.49 OTHER DIGESTIVE SYSTEM COMPLICATIONS 12/17/2012 SANTOS SOLIS, ADOLPH Jon Ot 997.5 SURG COMPL-URINARY TRACT 01/01/2013 296.90 MOO D DISORDER 01/01/2013 599.0 URIN SHELLI TRACT INFECTION 01/01/2013 789.05 ABD OMINAL PAIN PERIUMBILIC 01/01/2013 296.90 MOO D DISORDER 01/01/2013 599.0 URIN SHELLI TRACT INFECTION 01/01/2013 789.05 ABD OMINAL PAIN PERIUMBILIC 01/01/2013 296.90 MOO D DISORDER 01/01/2013 599.0 URIN SHELLI TRACT INFECTION 01/01/2013 789.05 ABD OMINAL PAIN PERIUMBILIC 01/01/2013 296.90 MOO D DISORDER 01/01/2013 599.0 URIN SHELLI TRACT INFECTION 01/01/2013 789.05 ABD OMINAL PAIN PERIUMBILIC 01/01/2013 296.90 MOO D DISORDER 01/01/2013 599.0 URIN SHELLI TRACT INFECTION 01/01/2013 789.05 ABD OMINAL PAIN PERIUMBILIC 01/01/2013 NIKHIL PITTS DO 296.90 MOOD DISORDER 01/01/2013 NIKHIL PITTS DO 599.0 URINARY TRACT INFECTION 01/01/2013 NIKHIL PITTS DO 789.05 ABDOMINAL PAIN PERIUMBILIC 01/01/2013 LINDA BENTLEY APRN 296.90 MOOD DISORDER 01/01/2013 SHEREE FARRELL LINDA T 59 9.0 URINARY TRACT INFECTION 01/01/2013 SHEREE FARRELL, LINDA T 789.05 ABDOMINAL PAIN PERIUMBILIC 01/01/2013 RIVER ARCE MD 296.9 0 MOOD DISORDER 01/01/2013 RIVER ARCE MD 599.0 URINARY TRACT INFECTION 01/01/2013 RIVER ARCE MD 789.0 5 ABDOMINAL PAIN PERIUMBILIC 01/01/2013 SANTOS SOLIS, ADOLPH M 296.90 MOOD DISORDER 01/01/2013 SANTOS SOLIS, ADOLPH M 59 9.0 URINARY TRACT INFECTION 01/01/2013 SANTOS SOLIS, ADOLPH M 789.05 ABDOMINAL PAIN PERIUMBILIC 01/01/2013 SHEREE FARRELL LINDA T 296.90 MOOD DISORDER 01/01/2013 SHEREE FARRELL LINDA T 59 9.0 URINARY TRACT INFECTION 01/01/2013 LINDA BENTLEY APRN T 789.05 ABDOMINAL PAIN PERIUMBILIC 01/01/2013 JANINE HERNDON MD N 296 .90 MOOD DISORDER 01/01/2013 JANINE HERNDON MD N 599 .0 URINARY TRACT INFECTION 01/01/2013 JANINE HERNDON MD N 789 .05 ABDOMINAL PAIN PERIUMBILIC 01/01/2013 SHEREE FARRELL LINDA T 296.90 MOOD DISORDER 01/01/2013 SHEREE FARRELL LINDA T 59 9.0 URINARY TRACT INFECTION 01/01/2013 SHEREE FARRELL LINDA T 789.05 ABDOMINAL PAIN PERIUMBILIC 01/01/2013 SHEREE FARRELL LINDA T 296.90 MOOD DISORDER 01/01/2013 SHEREE FARRELL LINDA T 59 9.0 URINARY TRACT INFECTION 01/01/2013 SHEREE FARRELL LINDA T 789.05 ABDOMINAL PAIN PERIUMBILIC 01/01/2013 SHEREE FARRELL LINDA T 296.90 MOOD DISORDER 01/01/2013 SHEREE FARRELL LINDA T 59 9.0 URINARY TRACT INFECTION 01/01/2013 SHEREE FARRELL LINDA T 789.05 ABDOMINAL PAIN PERIUMBILIC 01/01/2013 LINDA BENTLEY APRN T 296.90 MOOD DISORDER 01/01/2013 SHEREE FARRELL LINDA T 59 9.0 URINARY TRACT INFECTION 01/01/2013 SHEREE FARRELL LINDA T 789.05 ABDOMINAL PAIN PERIUMBILIC 01/01/2013 SHEREE FARRELL LINDA T 296.90 MOOD DISORDER 01/01/2013 [employer], LINDA T 59 9.0 URINARY TRACT INFECTION 01/01/2013 SHEREE FARRELL, LINDA T 789.05 ABDOMINAL PAIN PERIUMBILIC 01/01/2013 SHEREE FARRELL, LINDA T 296.90 MOOD DISORDER 01/01/2013 SHEREE RIVASN, LINDA T 59 9.0 URINARY TRACT INFECTION 01/01/2013 SHEREE FARRELL, LINDA T 789.05 ABDOMINAL PAIN PERIUMBILIC 01/01/2013 SHEREE FARRELL LINDA T 296.90 MOOD DISORDER 01/01/2013 SHEREE RIVASN, LINDA T 59 9.0 URINARY TRACT INFECTION 01/01/2013 SHEREE RIVASN, LINDA T 789.05 ABDOMINAL PAIN PERIUMBILIC 01/01/2013 SHEREE RIVASN, LINDA T 296.90 MOOD DISORDER 01/01/2013 SHEREE FARRELL, LINDA T 59 9.0 URINARY TRACT INFECTION 01/01/2013 SHEREE FARRELL, LINDA T 789.05 ABDOMINAL PAIN PERIUMBILIC 01/01/2013 SHEREE FARRELL LINDA T 296.90 MOOD DISORDER 01/01/2013 SHEREE FARRELL LINDA T 59 9.0 URINARY TRACT INFECTION 01/01/2013 SHEREE FARRELL, LINDA T 789.05 ABDOMINAL PAIN PERIUMBILIC 01/01/2013 JANINE HERNDON MD N 296 .90 MOOD DISORDER 01/01/2013 JANINE HERNDON MD N 599 .0 URINARY TRACT INFECTION 01/01/2013 JANINE HERNDON MD N 789 .05 ABDOMINAL PAIN PERIUMBILIC 01/01/2013 SHEREE FARRELL LINDA T 296.90 MOOD DISORDER 01/01/2013 SHEREE FARRELL, LINDA T 59 9.0 URINARY TRACT INFECTION 01/01/2013 SHEREE FARRELL LINDA T 789.05 ABDOMINAL PAIN PERIUMBILIC 01/01/2013 JANINE HERNDON MD N 296 .90 MOOD DISORDER 01/01/2013 JANINE HERNDON MD N 599 .0 URINARY TRACT INFECTION 01/01/2013 JANINE HERNDON MD N 789 .05 ABDOMINAL PAIN PERIUMBILIC 01/07/2013 154.1 SAGAR GNANT NEOPLASM OF RECTUM 01/07/2013 154.1 SAGAR GNANT NEOPLASM OF RECTUM 01/07/2013 154.1 SAGAR GNANT NEOPLASM OF RECTUM 01/07/2013 NIKHIL PITTS DO 154.1 MALIGNANT NEOPLASM OF RECTUM 01/07/2013 SHEREE FARRELL LINDA T 15 4.1 MALIGNANT NEOPLASM OF RECTUM 01/07/2013 CLAUDE SOLIS, RIVER 154.1 MALIGNANT NEOPLASM OF RECTUM 01/07/2013 SANTOS SOLIS, ADOLPH M 15 4.1 MALIGNANT NEOPLASM OF RECTUM 01/07/2013 SHEREE FARRELL LINDA T 15 4.1 MALIGNANT NEOPLASM OF RECTUM 01/07/2013 JANINE HERNDON MD N 154 .1 MALIGNANT NEOPLASM OF RECTUM 01/07/2013 SHEREE FARRELL LINDA T 15 4.1 MALIGNANT NEOPLASM OF RECTUM 01/07/2013 SHEREE FARRELL LINDA T 15 4.1 MALIGNANT NEOPLASM OF RECTUM 01/07/2013 [employer], LINDA T 15 4.1 MALIGNANT NEOPLASM OF RECTUM 01/07/2013 SHEREE FARRELL LINDA T 15 4.1 MALIGNANT NEOPLASM OF RECTUM 01/07/2013 SHEREE FARRELL LINDA T 15 4.1 MALIGNANT NEOPLASM OF RECTUM 01/07/2013 SHEREE FARRELL LINDA T 15 4.1 MALIGNANT NEOPLASM OF RECTUM 01/07/2013 SHEREE FARRELL LINDA T 15 4.1 MALIGNANT NEOPLASM OF RECTUM 01/07/2013 SHEREE FARRELL LINDA T 15 4.1 MALIGNANT NEOPLASM OF RECTUM 01/07/2013 SHEREE FARRELL LINDA T 15 4.1 MALIGNANT NEOPLASM OF RECTUM 01/07/2013 JANINE HERNDON MD N 154 .1 MALIGNANT NEOPLASM OF RECTUM 01/07/2013 SHEREE FARRELL LINDA T 15 4.1 MALIGNANT NEOPLASM OF RECTUM 01/07/2013 JANINE HERNDON MD N 154 .1 MALIGNANT NEOPLASM OF RECTUM 02/21/2013 NADIA SOLIS, VIPIN David Ot 591 HYDRONEPHROSIS 02/21/2013 NADIA SOLIS, VIPIN David Ot 788. 0 RENAL COLIC 02/21/2013 VIPIN ZUNIGA MD Ot 789. 04 ABDOMINAL PAIN, LEFT LOWER QUADRANT 03/26/2013 PITTS [...] DO, NIKHIL K Ot 596.54 03/26/2013 PITTS DONIKHIL Ot V10.06 03/26/2013 PITTS DO, NIKHIL Oseguera Ot V15.3 03/26/2013 PITTS DO, NIKHIL Oseguera Ot V44.2 03/26/2013 PITTS DO, NIKHIL Oseguera Ot V45.72 03/26/2013 PITTS DO, NIKHIL Oseguera Ot V45.89 03/26/2013 PITTS DO, NIKHIL Oseguera Ot V87.41 04/23/2013 SANTOS SOLIS, ADOLPH Jon Ot 276.8 HYPOPOTASSEMIA 04/23/2013 ADOLPH GRAHAM MD Ot 596.54 NEUROGENIC BLADDER, NOT OTHERWISE SPECIF 04/23/2013 ADOLPH GRAHAM MD Ot V10.06 HX-RECTAL ANAL MALIGN 04/23/2013 ADOLPH GRAHAM MD Ot V55.2 ATTEN TO ILEOSTOMY 04/25/2013 VIRAJ SOLIS, ROXI Oseguera Ot 154.1 MALIGNANT NEOPL RECTUM 04/25/2013 VIRAJ SOLIS, ROXI Oseguera Ot V58.81 FIT/ADJ VASCULAR CATHETER 05/02/2013 ADOLPH GRAHAM MD Ot 041.04 STREPTOCOCCUS INFECTION NOS, GROUP D (EN 05/02/2013 SANTOS SOLIS, ADOLPH Jon Ot 041.85 BACTERIAL INFEC DUE TO OTH GRAM-NEG ORGA 05/02/2013 ADOLPH GRAHAM MD Ot 276.8 HYPOPOTASSEMIA 05/02/2013 ADOLPH GRAHAM MD Ot 276.9 ELECTROLYT/FLUID DIS NEC 05/02/2013 ADOLPH GRAHAM MD Ot 401.9 HYPERTENSION NOS 05/02/2013 ADOLPH GRAHAM MD Ot 59 1 HYDRONEPHROSIS 05/02/2013 ADOLPH GRAHAM MD Ot 596.54 NEUROGENIC BLADDER, NOT OTHERWISE SPECIF 05/02/2013 ADOLPH GRAHAM MD Ot 599.0 URIN TRACT INFECTION NOS 05/02/2013 ADOLPH GRAHAM MD Ot V10.06 HX-RECTAL ANAL MALIGN 05/02/2013 ADOLPH GRAHAM MD Ot V45.89 POSTSURGICAL STATES NEC 05/20/2013 LINDA BENLTEY APRN 59 1 HYDRONEPHROSIS 05/20/2013 KATRINA SOLIS, JANINE N 591 HYDRONEPHROSIS 05/20/2013 LINDA BENTLEY APRN 59 1 HYDRONEPHROSIS 05/20/2013 SHEREE FARRELL LINDA T 59 1 HYDRONEPHROSIS 05/20/2013 SHEREE FARRELL LINDA T 59 1 HYDRONEPHROSIS 05/20/2013 SHEREE FARRELL LINDA T 59 1 HYDRONEPHROSIS 05/20/2013 SHEREE FARRELL LINDA T 59 1 HYDRONEPHROSIS 05/20/2013 SHEREE FARRELL LINDA T 59 1 HYDRONEPHROSIS 05/20/2013 LINDA BENTLEY APRN T 59 1 HYDRONEPHROSIS 05/20/2013 LINDA BENTLEY APRN T 59 1 HYDRONEPHROSIS 05/20/2013 SHEREE FARRELL LINDA T 59 1 HYDRONEPHROSIS 05/20/2013 KATRINA SOLIS, JANINE N 591 HYDRONEPHROSIS 05/20/2013 LINDA BENTLEY APRN T 59 1 HYDRONEPHROSIS 05/20/2013 KATRINA SOLIS, JANINE N 591 HYDRONEPHROSIS 07/10/2013 BEATRICE WILEY DOA K Ot 154.1 MALIGNANT NEOPL RECTUM 07/10/2013 INEZBEATRICE Mai DOA Ana Rosa Ot 599.0 URIN TRACT INFECTION NOS 07/10/2013 BEATRICE WILEY DOA K Ot 599.70 HEMATURIA, UNSPECIFIED 08/08/2013 ROXI CALI [...] INCONTINENCE 08/08/2013 ROXI CALI MD Ot V10.06 HX- RECTAL ANAL MALIGN 08/08/2013 ROXI CALI MD Ot V13.02 PERSONAL HISTORY, URINARY (TRACT) INFECT 08/08/2013 ROXI CALI MD, Ot V15.3 HX OF IRRADIATION 08/08/2013 ROXI CALI MD Ot V45.79 ACQRD ABSENCE OF OTH ORGAN 08/08/2013 ROXI CALI MD Ot V87.41 PERSONAL HISTORY OF ANTINEOPLASTIC CHEMO 08/24/2013 JANINE HERNDON MD Ot 008.42 PSEUDOMONAS ENTERITIS 08/24/2013 JANINE HERNDON MD Ot 041.49 OTHER AND UNSPECIFIED ESCHERICHIA COLI [ 08/24/2013 JANINE HERNDON MD Ot 154 .1 MALIGNANT NEOPL RECTUM 08/24/2013 JANIEN HERNDON MD Ot 276.51 DEHYDRATION 08/24/2013 JANINE HERNDON MD Ot 401 .9 HYPERTENSION NOS 08/24/2013 JANINE HERNDON MD Ot 535.50 UNSP GASTRITIS GASTRODUODENITIS W/O ME 08/24/2013 JANINE HERNDON MD Ot 536 .3 GASTROPARESIS 08/24/2013 JANINE HERNDON MD Ot 593 .4 URETERIC OBSTRUCTION NEC 08/24/2013 JANINE HERNDON MD Ot 593 .9 RENAL URETERAL DIS NOS 08/24/2013 JNAINE HERNDON MD Ot 596.54 NEUROGENIC BLADDER, NOT OTHERWISE SPECIF 08/24/2013 JANINE HERNDON MD Ot 599 .0 URIN TRACT INFECTION NOS 08/24/2013 JANINE HERNDON MD Ot 787.01 NAUSEA WITH VOMITING 08/24/2013 JANINE HERNDON MD Ot 788.20 RETENTION OF URINE NOS 08/24/2013 JANINE HERNDON MD, Ot V13.02 PERSONAL HISTORY, URINARY (TRACT) INFECT [...] V15.3 HX OF IRRADIATION 08/26/2013 ROXI CALI MD, Ot V58.11 ENCOUNTER FOR ANTINEOPLASTIC CHEMOTHERAP 08/26/2013 ROXI CALI MD, Ot V58.69 OTH MED,LT,CURRENT USE 08/26/2013 ROXI CALI MD, Ot V87.41 PERSONAL HISTORY OF ANTINEOPLASTIC CHEMO 09/06/2013 JANINE HERNDON MD 783 .41 FAILURE TO THRIVE 09/06/2013 LINDA BENTLEY APRN 783.41 FAILURE TO THRIVE 09/06/2013 LINDA BENTLEY APRN 783.41 FAILURE TO THRIVE 09/06/2013 LINDA BENTLEY APRN 783.41 FAILURE TO THRIVE 09/06/2013 LINDA BENTLEY APRN 783.41 FAILURE TO THRIVE 09/06/2013 LINDA BENTLEY APRN 783.41 FAILURE TO THRIVE 09/06/2013 LINDA BENTLEY APRN 783.41 FAILURE TO THRIVE 09/06/2013 LINDA BENTLEY APRN 783.41 FAILURE TO THRIVE 09/06/2013 LINDA BENTLEY APRN 783.41 FAILURE TO THRIVE 09/06/2013 LINDA BENTLEY APRN 783.41 FAILURE TO THRIVE 09/06/2013 JANINE HERNDON MD 783 .41 FAILURE TO THRIVE 09/06/2013 LINDA BENTLEY APRN 783.41 FAILURE TO THRIVE 09/06/2013 JANINE HERNDON MD N 783 .41 FAILURE TO THRIVE 10/21/2013 ROXI CALI MD, Ot 041.49 OTHER AND UNSPECIFIED ESCHERICHIA COLI [ 10/21/2013 VIRAJ SOLIS, ROXI Oseguera Ot 154.1 MALIGNANT NEOPL RECTUM 10/21/2013 ROXI CALI MD Ot 276.8 HYPOPOTASSEMIA 10/21/2013 ROXI CALI MD Ot 285.9 ANEMIA NOS 10/21/2013 VIRAJ SOLIS, ROXI Oseguera Ot 311 DEPRESSIVE DISORDER NEC 10/21/2013 ROXI [...] Ot 599.0 URIN TRACT INFECTION NOS 10/21/2013 VIRAJ SOLIS, ROXI Oseguera Ot 607.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, ORGANIC ORIGN 10/21/2013 ROXI CALI MD Ot 788.20 RETENTION OF URINE NOS 10/21/2013 VIRAJ SOLIS, ROXI Oseguera Ot V12.79 PERSONAL HISTORY OTH SPEC DIGESTIVE SYST 12/11/2013 LINDA BENTLEY APRN 35 7.9 NEUROPATHY UNSP 12/11/2013 LINDA BENTLEY APRN 35 7.9 NEUROPATHY UNSP 12/11/2013 LINDA BENTLEY APRN 35 7.9 NEUROPATHY UNSP 12/11/2013 LINDA BENTLEY APRN 35 7.9 NEUROPATHY UNSP 12/11/2013 LINDA BENTLEY APRN 35 7.9 NEUROPATHY UNSP 12/11/2013 LINDA BENTLEY APRN 35 7.9 NEUROPATHY UNSP 12/11/2013 LINDA BENTLEY APRN 35 7.9 NEUROPATHY UNSP 12/11/2013 LINDA BENTLEY APRN 35 7.9 NEUROPATHY UNSP 12/11/2013 JANINE HERNDON MD N 357 .9 NEUROPATHY UNSP 12/11/2013 LINDA BENTLEY APRN 35 7.9 NEUROPATHY UNSP 12/11/2013 JANINE HERNDON MD N 357 .9 NEUROPATHY UNSP 12/23/2013 ROXI CALI MD Ot [...] V87.41 PERSONAL HISTORY OF ANTINEOPLASTIC CHEMO 01/24/2014 NADIA SOLIS, VIPIN David Ot 276. 8 HYPOPOTASSEMIA 01/24/2014 NADIA SOLIS, VIPIN David Ot 599. 0 URIN TRACT INFECTION NOS 03/17/2014 WAYLON TAYLOR MD Ot 154.1 03/17/2014 WAYLON TAYLOR MD Ot 401.9 03/17/2014 WAYLON TAYLOR MD Ot V55.6 06/04/2014 LINDA BENTLEY APRN 728.87 WEAKNESS 06/04/2014 LINDA BENTLEY APRN 728.87 WEAKNESS 06/04/2014 LINDA BENTLEY APRN 728.87 WEAKNESS 06/04/2014 JANINE HERNDON MD N 728 .87 WEAKNESS 06/04/2014 LINDA BENTLEY APRN 728.87 WEAKNESS 06/04/2014 JANINE HERNDON MD N 728 .87 WEAKNESS 06/20/2014 SANTOS SOLIS, ADOLPH Jon Ot V72.84 06/20/2014 ADOLPH GRAHAM MD Ot 153.9 06/20/2014 ADOLPH GRAHAM MD Ot V72.81 06/20/2014 ADOLPH GRAHAM MD Ot V74.8 06/20/2014 LINDA BENTLEY Ot 59 1 06/20/2014 LINDA BENTLEY Ot 789.05 06/20/2014 CLAUDE SOLIS, RIVER Fenton Ot 788 .1 06/20/2014 ROXI CALI MD Ot 154.1 06/20/2014 ROXI CALI MD Ot 280.9 06/20/2014 ROXI CALI MD Ot 311 06/20/2014 VIRAJ SOLIS, ROXI Oseguera Ot 780.52 06/20/2014 VIRAJ SOLIS, ROXI Oseguera Ot 788.38 06/20/2014 VIRAJ SOLIS, ROXI Oseguera Ot V15.3 06/20/2014 VIRAJ SOLIS, ROXI Oseguera Ot V58.69 06/20/2014 VIRAJ SOLIS, ROXI Oseguera Ot V87.41 06/27/2014 [employer], LINDA T 68 2.8 CELLULITIS AND ABSCESS OF OTHER SPECIFIED SITES 06/27/2014 SHEREE FARRELL LINDA T 68 2.8 CELLULITIS AND ABSCESS OF OTHER SPECIFIED SITES 06/27/2014 JANINE HERNDON MD N 682 .8 CELLULITIS AND ABSCESS OF OTHER SPECIFIED SITES 06/27/2014 LINDA BENTLEY APRN T 68 2.8 CELLULITIS AND ABSCESS OF OTHER SPECIFIED SITES 06/27/2014 JANINE HERNDON MD 682 .8 CELLULITIS AND ABSCESS OF OTHER SPECIFIED SITES 08/15/2014 LESLYE BLANCO Ot 599.0 08/15/2014 LESLYE BLANCO Ot 786.50 08/15/2014 LESLYE BLANCO Ot 787.01 08/15/2014 LESLYE BLANCO Ot V10.05 08/15/2014 LESLYE BLANCO Ot V58.69 08/18/2014 LIZBETH SOLIS, SHANTE David Ot 593.4 08/18/2014 LIZBETH SOLIS, SHANTE David Ot V72.8 4 08/18/2014 LIZBETH SOLIS, SHANTE David Ot 593.4 08/18/2014 LIZBETH SOLIS, SHANTE David Ot V74.8 08/18/2014 SANTOS SOLIS, ADOLPH Jon Ot 154.1 09/11/2014 Ot 276.8 09/11/2014 Ot 530.81 09/11/2014 Ot 536.3 09/11/2014 Ot 553.3 09/11/2014 Ot 787.01 09/11/2014 Ot 787.91 09/11/2014 Ot 789.00 09/11/2014 Ot 791.9 09/11/2014 Ot V10.06 10/08/2014 JANINE HERNDON MD Ot 154 .1 MALIGNANT NEOPL RECTUM 10/08/2014 JANINE HERNDON MD Ot 276 .8 HYPOPOTASSEMIA 10/08/2014 JANINE HERNDON MD Ot 338 .3 NEOPLASM RELATED PAIN (ACUTE)(CHRONIC) 10/08/2014 JANINE HERNDON MD Ot 401 .9 HYPERTENSION NOS 10/08/2014 JANINE HERNDON MD Ot 536 .3 GASTROPARESIS 10/08/2014 JANINE HERNDON MD Ot 791 .9 ABN URINE FINDINGS NEC 10/08/2014 JANINE HERNDON MD Ot V13.02 PERSONAL HISTORY, URINARY (TRACT) INFECT 10/08/2014 JANINE HERNDON MD Ot V44 .6 URINOSTOMY STATUS NEC 10/10/2014 LINDA CASAS DO Ot 787.01 NAUSEA WITH VOMITING 10/10/2014 LINDA CASAS DO Ot 789.00 ABDOMINAL PAIN, UNSPECIFIED SITE 10/12/2014 SHAY ALFONSO MD Ot 276.8 HYPOPOTASSEMIA 10/12/2014 SHAY ALFONSO MD Ot 401.9 HYPERTENSION NOS 10/12/2014 SHAY ALFONSO MD Ot 787.01 NAUSEA WITH VOMITING 10/12/2014 SHAY ALFONSO MD Ot 789.09 ABDOMINAL PAIN, OTHER SPECIFIED SITE 10/18/2014 SHAY ALFONSO MD Ot V55.3 ATTEN TO COLOSTOMY 03/26/2015 WAYLON TAYLOR MD Ot 787.01 NAUSEA WITH VOMITING 03/26/2015 WAYLON TAYLOR MD Ot 789.09 ABDOMINAL PAIN, OTHER SPECIFIED SITE 03/26/2015 LIZBETH SOLIS, SHANTE David Ot 154.1 03/26/2015 LIZBETH SOLIS, SHANTE David Ot 571.8 03/26/2015 SHANTE NIEVES MD Ot 591 03/26/2015 SANTOS SOLIS, ADOLPH Jon Ot 154.1 03/26/2015 SANTOS SOLIS, ADOLPH Jon Ot V72.63 03/26/2015 SANTOS SOLIS, ADOLPH Jon Ot V74.8 03/26/2015 TED PA DIRECTOR OF GRADUATE ADMISSIONS Ot 154.1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 ADMISSIONS Ot 530.81 ESOPHAGEAL REFLUX 09/21/2016 TED PA DIRECTOR OF GRADUATE ADMISSIONS Ot 536.3 GASTROPARESIS 09/21/2016 TED PA DIRECTOR OF GRADUATE ADMISSIONS Ot 607.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, ORGANIC ORIGN 09/21/2016 TED PA DIRECTOR OF GRADUATE ADMISSIONS Ot V58.69 OTH MED,LT,CURRENT USE 09/21/2016 VIRAJ SOLIS, ROXI Oseguera Ot 154.1 MALIGNANT NEOPL RECTUM 09/21/2016 ROXI CALI MD Ot 154.1 MALIGNANT NEOPL RECTUM 09/21/2016 VIRAJ SOLIS, ROXI Oseguera Ot C20 MALIGNANT NEOPLASM OF RECTUM 09/21/2016 ROXI CALI MD Ot C20 MALIGNANT NEOPLASM OF RECTUM 09/21/2016 ROXI CALI MD Ot D50.9 IRON DEFICIENCY ANEMIA, UNSPECIFIED 09/21/2016 VIRAJ SOLIS, ROXI Oseguera Ot F33.9 MAJOR DEPRESSIVE DISORDER, RECURRENT, UN 09/21/2016 VIRAJ SOLIS, ROXI Oseguera Ot G47.00 INSOMNIA, UNSPECIFIED 09/21/2016 VIRAJ SOLIS, ROXI Oseguera Ot N39.490 OVERFLOW INCONTINENCE 09/21/2016 VIRAJ SOLIS, ROXI Oseguera Ot Z79.899 OTHER RETIREMENT (CURRENT) DRUG THERAPY 09/21/2016 VIRAJ SOLIS, ROXI Oseguera Ot Z92.3 PERSONAL HISTORY OF IRRADIATION 09/21/2016 LIZBETH SOLIS, SHANTE David Ot 154.1 MALIGNANT NEOPL RECTUM 09/21/2016 LIZBETH SOLIS, SHANTE David Ot 571.8 CHRONIC LIVER DIS NEC 09/21/2016 LIZBETH SOLIS, SHANTE David Ot 591 HYDRONEPHROSIS 09/21/2016 SANTOS SOLIS, ADOLPH Jon Ot 154.1 MALIGNANT NEOPL RECTUM 09/21/2016 SANTOS SOLIS, ADOLPH Jon Ot V72.63 PRE-PROCEDURAL LABORATORY EXAMINATION 09/21/2016 SANTOS SOLIS, ADOLPH Jon Ot V74.8 SCREEN-BACTERIAL DIS NEC 09/21/2016 TED PA DIRECTOR OF GRADUATE ADMISSIONS Ot 154.1 MALIGNANT NEOPL RECTUM 09/21/2016 TED PA DIRECTOR OF GRADUATE ADMISSIONS Ot 280.9 IRON DEFIC ANEMIA NOS 09/21/2016 TED PA DIRECTOR OF GRADUATE ADMISSIONS Ot 3 11 DEPRESSIVE DISORDER NEC 09/21/2016 TED PA DIRECTOR OF GRADUATE ADMISSIONS Ot 530.81 ESOPHAGEAL REFLUX 09/21/2016 TED PA DIRECTOR OF GRADUATE ADMISSIONS Ot 536.3 GASTROPARESIS 09/21/2016 TED PA DIRECTOR OF GRADUATE ADMISSIONS Ot 607.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, ORGANIC ORIGN 09/21/2016 TED PA DIRECTOR OF GRADUATE ADMISSIONS Ot V58.69 OTH MED,LT,CURRENT USE 09/21/2016 TED PA DIRECTOR OF GRADUATE ADMISSIONS Ot 154.1 MALIGNANT NEOPL RECTUM 09/21/2016 TED PA DIRECTOR OF GRADUATE ADMISSIONS Ot 280.9 IRON DEFIC ANEMIA NOS 09/21/2016 THIERNO TED Juan DIRECTOR OF GRADUATE ADMISSIONS Ot 3 11 DEPRESSIVE DISORDER NEC 09/21/2016 CRISTO PAMIGUEL A Juan DIRECTOR OF GRADUATE ADMISSIONS Ot 530.81 ESOPHAGEAL REFLUX 09/21/2016 THIERNO TED Juan DIRECTOR OF GRADUATE ADMISSIONS Ot 536.3 GASTROPARESIS 09/21/2016 PATED Juan DIRECTOR OF GRADUATE ADMISSIONS Ot 607.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, ORGANIC ORIGN 09/21/2016 TED PA DIRECTOR OF GRADUATE ADMISSIONS Ot V58.69 OTH MED,LT,CURRENT USE 09/21/2016 VIRAJ SOLIS, ROXI Oseguera Ot 154.1 MALIGNANT NEOPL RECTUM 09/21/2016 VIRAJ SOLIS, ROXI Oseguera Ot 154.1 MALIGNANT NEOPL RECTUM 09/21/2016 VIRAJ SOLIS, ROXI Oseguera Ot C20 MALIGNANT NEOPLASM OF RECTUM 09/21/2016 VIRAJ SOLIS, ROXI Oseguera Ot C20 MALIGNANT NEOPLASM OF RECTUM 09/21/2016 VIRAJ SOLIS, ROXI Oseguera Ot D50.9 IRON DEFICIENCY ANEMIA, UNSPECIFIED 09/21/2016 VIRAJ SOLIS, ROXI Oseguera Ot F33.9 MAJOR DEPRESSIVE DISORDER, RECURRENT, UN 09/21/2016 VIRAJ SOLIS, ROXI Oseguera Ot G47.00 INSOMNIA, UNSPECIFIED 09/21/2016 VIRAJ SOLIS, ROXI Oseguera Ot N39.490 OVERFLOW INCONTINENCE 09/21/2016 VIRAJ SOLIS, ROXI Oseguera Ot Z79.899 OTHER RETIREMENT (CURRENT) DRUG THERAPY 09/21/2016 VIRAJ SOLIS, ROXI Oseguera Ot Z92.3 PERSONAL HISTORY OF IRRADIATION 09/22/2016 ABRIL KEYS DO Ot C20 MALIGNANT NEOPLASM OF RECTUM 09/22/2016 ABRIL KEYS DO Ot E87.6 HYPOKALEMIA 09/22/2016 ABRIL KEYS DO Ot F32.9 MAJOR DEPRESSIVE DISORDER, SINGLE EPISOD 09/22/2016 ABRIL KEYS DO Ot F41.9 ANXIETY DISORDER, UNSPECIFIED 09/22/2016 ABRIL KEYS DO Ot G89.29 OTHER CHRONIC PAIN 09/22/2016 FRANK KEYS DOI Ot I10 ESSENTIAL (PRIMARY) HYPERTENSION 09/22/2016 KEYS DO, ABRIL Ot K21.9 GASTRO-ESOPHAGEAL REFLUX DISEASE WITHOUT 09/22/2016 KEYS DO ABRIL Ot K59.09 OTHER CONSTIPATION 09/22/2016 KEYS DO, ABRIL Ot N39.0 URINARY TRACT INFECTION, SITE NOT SPECIF 09/22/2016 KEYS DO ABRIL Ot R41.82 ALTERED MENTAL STATUS, UNSPECIFIED 09/22/2016 KEYS DO ABRIL Ot T40.2X 5A ADVERSE EFFECT OF OTHER OPIOIDS, INITIAL 09/22/2016 KEYS DO ABRIL Ot Z93.2 ILEOSTOMY STATUS 09/22/2016 KEYS DO ABRIL Ot 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 10/06/2016 VIRAJ SOLIS, ROXI Oseguera Ot C20 MALIGNANT NEOPLASM OF RECTUM 10/06/2016 VIRAJ SOLIS, ROXI Oseguera Ot D50.9 IRON DEFICIENCY ANEMIA, UNSPECIFIED 10/06/2016 VIRAJ SOLIS, ROXI Oseguera Ot F33.9 MAJOR DEPRESSIVE DISORDER, RECURRENT, UN 10/06/2016 VIRAJ SOLIS, ROXI Oseguera Ot G47.00 INSOMNIA, UNSPECIFIED 10/06/2016 VIRAJ SOLIS, ROXI Oseguera Ot N39.490 OVERFLOW INCONTINENCE 10/06/2016 ROXI CALI MD Ot Z79.899 OTHER RETIREMENT (CURRENT) DRUG THERAPY 10/06/2016 VIRAJ SOLIS, ROXI Oseguera Ot Z92.3 PERSONAL HISTORY OF IRRADIATION 10/06/2016 LIZBETH SOLIS, SHANTE David Ot 154.1 MALIGNANT NEOPL RECTUM 10/06/2016 LIZBETH SOLIS, SHANTE David Ot 571.8 CHRONIC LIVER DIS NEC 10/06/2016 LIZBETH SOLIS, SHANTE David Ot 591 HYDRONEPHROSIS 10/06/2016 SANTOS SOLSI, ADOLPH Jon Ot 154.1 MALIGNANT NEOPL RECTUM 10/06/2016 SANTOS SOLIS, ADOLPH Jon Ot V72.63 PRE-PROCEDURAL LABORATORY EXAMINATION 10/06/2016 SANTOS SOLIS, ADOLPH Jon Ot V74.8 SCREEN-BACTERIAL DIS NEC 10/06/2016 TED PA DIRECTOR OF GRADUATE ADMISSIONS Ot 154.1 MALIGNANT NEOPL RECTUM 10/06/2016 TED PA DIRECTOR OF GRADUATE ADMISSIONS Ot 280.9 IRON DEFIC ANEMIA NOS 10/06/2016 TED PA DIRECTOR OF GRADUATE ADMISSIONS Ot 3 11 DEPRESSIVE DISORDER NEC 10/06/2016 TED PA DIRECTOR OF GRADUATE ADMISSIONS Ot 530.81 ESOPHAGEAL REFLUX 10/06/2016 TED PA DIRECTOR OF GRADUATE ADMISSIONS Ot 536.3 GASTROPARESIS 10/06/2016 CRISTO PAMIGUEL A Juan DIRECTOR OF GRADUATE ADMISSIONS Ot 607.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, ORGANIC ORIGN 10/06/2016 CRISTO PAMIGUEL A Juan DIRECTOR OF GRADUATE ADMISSIONS Ot V58.69 OTH MED,LT,CURRENT USE 10/06/2016 CRISTO PAMIGUEL A Juan DIRECTOR OF GRADUATE ADMISSIONS Ot 154.1 MALIGNANT NEOPL RECTUM 10/06/2016 CRISTO PAMIGUEL A Drake DIRECTOR OF GRADUATE ADMISSIONS Ot 280.9 IRON DEFIC ANEMIA NOS 10/06/2016 TED PA DIRECTOR OF GRADUATE ADMISSIONS Ot 3 11 DEPRESSIVE DISORDER NEC 10/06/2016 CRISTO PAMIGUEL A Drake DIRECTOR OF GRADUATE ADMISSIONS Ot 530.81 ESOPHAGEAL REFLUX 10/06/2016 TED PA DIRECTOR OF GRADUATE ADMISSIONS Ot 536.3 GASTROPARESIS 10/06/2016 TED PA DIRECTOR OF GRADUATE ADMISSIONS Ot 607.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, ORGANIC ORIGN 10/06/2016 CRISTO PAMIGUEL A Drake DIRECTOR OF GRADUATE ADMISSIONS Ot V58.69 OTH MED,LT,CURRENT USE 10/06/2016 ROXI CALI MD Ot 154.1 MALIGNANT NEOPL RECTUM 10/06/2016 ROXI CALI MD Ot 154.1 MALIGNANT NEOPL RECTUM 10/06/2016 ROXI CALI MD Ot C20 [...] 10/06/2016 ROXI CALI MD Ot Z79.899 OTHER RETIREMENT (CURRENT) DRUG THERAPY 10/06/2016 VIRAJ SOLIS, ROXI Oseguera Ot Z92.3 PERSONAL HISTORY OF IRRADIATION 10/07/2016 JOSE ANTONIO WILEY DO Ot F11.20 OPIOID DEPENDENCE, UNCOMPLICATED 10/07/2016 JOSE ANTONIO WILEY DO Ot I10 ESSENTIAL (PRIMARY) HYPERTENSION 10/07/2016 JOSE ANTONIO WILEY DO Ot N39.0 URINARY TRACT INFECTION, SITE NOT SPECIF 10/07/2016 JOSE ANTONIO WILEY DO Ot R11.2 NAUSEA WITH VOMITING, UNSPECIFIED 10/07/2016 INEZ DOBEATRICEA K Ot R42 DIZZINESS AND GIDDINESS 10/07/2016 INEZ DOBEATRICEA K Ot 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 10/07/2016 INEZ DO JOSE ANTONIO K Ot Z85.038 PERSONAL HISTORY OF MALIGNANT NEOPLASM O 10/07/2016 INEZ DOBEATRICEA K Ot Z90.6 ACQUIRED ABSENCE OF OTHER PARTS OF URINA 10/07/2016 INEZ DOBEATRICEA K Ot 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 10/07/2016 INEZ DOBEATRICEA K Ot F11.20 OPIOID DEPENDENCE, UNCOMPLICATED 10/07/2016 INEZ DO JOSE ANTONIO K Ot I10 ESSENTIAL (PRIMARY) HYPERTENSION 10/07/2016 INEZ DOJOSE ANTONIO Ot N39.0 URINARY TRACT INFECTION, SITE NOT SPECIF 10/07/2016 INEZ DOJOSE ANTONIO K Ot R11.2 NAUSEA WITH VOMITING, UNSPECIFIED 10/07/2016 INEZ DOJOSE ANTONIO K Ot R42 DIZZINESS AND GIDDINESS 10/07/2016 INEZ DOJOSE ANTONIO Ot 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 10/07/2016 INEZ DOBEATRICEA K Ot Z85.038 PERSONAL HISTORY OF MALIGNANT NEOPLASM O 10/07/2016 INEZ DOJOSE ANTONIO Ot Z90.6 ACQUIRED ABSENCE OF OTHER PARTS OF URINA 10/07/2016 INEZ JOSE ANTONIO K Ot 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 10/12/2016 ROXI CALI MD Ot C20 MALIGNANT NEOPLASM OF RECTUM 10/12/2016 ROXI CALI MD Ot D50.9 IRON DEFICIENCY ANEMIA, UNSPECIFIED 10/12/2016 ROXI CALI MD Ot F33.9 MAJOR DEPRESSIVE DISORDER, RECURRENT, UN 10/12/2016 ROXI CALI MD Ot G47.00 INSOMNIA, UNSPECIFIED 10/12/2016 ROXI CALI MD Ot N39.490 OVERFLOW INCONTINENCE 10/12/2016 ROXI CALI MD Ot 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 10/12/2016 ROXI CALI MD Ot Z92.3 PERSONAL HISTORY OF IRRADIATION 10/15/2016 JOSE ANTONIO WILEY DO Ot G89.29 OTHER CHRONIC PAIN 10/15/2016 INEZ JOSE ANTONIO DICKSON Ot K76.0 FATTY (CHANGE OF) LIVER, NOT ELSEWHERE C 10/15/2016 INEZ BEATRICE DICKSONA K Ot R10.84 GENERALIZED ABDOMINAL PAIN 10/15/2016 INEZ JOSE ANTONIO K Ot R11.2 NAUSEA WITH VOMITING, UNSPECIFIED 10/15/2016 INEZ JOSE ANTONIO K Ot Z85.048 PRSNL HX OF MALIG NEOPLM OF RECTUM, RECT 10/15/2016 INEZ DICKSON JOSE ANTONIO Ana Rosa Ot Z93.2 ILEOSTOMY STATUS 10/15/2016 JOSE ANTONIO WILEY DO Ot Z98.0 INTESTINAL BYPASS AND ANASTOMOSIS STATUS 10/21/2016 SHAY ALFONSO MD Ot E87.6 HYPOKALEMIA 10/21/2016 SHAY ALFONSO MD Ot N39.0 URINARY TRACT INFECTION, SITE NOT SPECIF 10/21/2016 SHAY ALFONSO MD Ot R10.84 GENERALIZED ABDOMINAL PAIN 10/21/2016 SHAY ALFONSO MD Ot R11.2 NAUSEA WITH VOMITING, UNSPECIFIED 10/21/2016 SHAY ALFONSO MD Ot R19.7 DIARRHEA, UNSPECIFIED 10/21/2016 SHAY ALFONSO MD Ot R42 DIZZINESS AND GIDDINESS 10/21/2016 SHAY ALFONSO MD Ot Z85.048 PRSNL HX OF MALIG NEOPLM OF RECTUM, RECT 10/21/2016 SHAY ALFONSO MD Ot Z92.21 [...] MD Ot R42 DIZZINESS AND GIDDINESS 10/23/2016 NATY SOLIS, SHAY Lester Ot Z85.048 PRSNL HX OF MALIG NEOPLM OF RECTUM, RECT 10/23/2016 NATY SOLIS, SHAY Lester Ot Z92.21 PERSONAL HISTORY OF ANTINEOPLASTIC CHEMO 10/23/2016 NATY SOLIS, SHAY Lester Ot Z92.3 PERSONAL HISTORY OF IRRADIATION 10/24/2016 LIZBETH SOLIS, SHANTE David Ot 154.1 MALIGNANT NEOPL RECTUM 10/24/2016 LIZBETH SOLIS, SHANTE David Ot 571.8 CHRONIC LIVER DIS NEC 10/24/2016 LIZBETH SOLIS, SHANTE David Ot 591 HYDRONEPHROSIS 10/24/2016 SANTOS SOLIS, ADOLPH Jon Ot 154.1 MALIGNANT NEOPL RECTUM 10/24/2016 SANTOS SOLIS, ADOLPH Jon Ot V72.63 PRE-PROCEDURAL LABORATORY EXAMINATION 10/24/2016 SANTOS SOLIS, ADOLPH Jon Ot V74.8 SCREEN-BACTERIAL DIS NEC 10/24/2016 TED PA DIRECTOR OF GRADUATE ADMISSIONS Ot 154.1 MALIGNANT NEOPL RECTUM 10/24/2016 TED PA S DIRECTOR OF GRADUATE ADMISSIONS Ot 280.9 IRON DEFIC ANEMIA NOS 10/24/2016 TED PA S DIRECTOR OF GRADUATE ADMISSIONS Ot 3 11 DEPRESSIVE DISORDER NEC 10/24/2016 TED PA S DIRECTOR OF GRADUATE ADMISSIONS Ot 530.81 ESOPHAGEAL REFLUX 10/24/2016 TED PA S DIRECTOR OF GRADUATE ADMISSIONS Ot 536.3 GASTROPARESIS 10/24/2016 TED PA S DIRECTOR OF GRADUATE ADMISSIONS Ot 607.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, ORGANIC ORIGN 10/24/2016 TED PA S DIRECTOR OF GRADUATE ADMISSIONS Ot V58.69 OT MED,LT,CURRENT USE 10/24/2016 TED PA S DIRECTOR OF GRADUATE ADMISSIONS Ot 154.1 MALIGNANT NEOPL RECTUM 10/24/2016 TED PA S DIRECTOR OF GRADUATE ADMISSIONS Ot 280.9 IRON DEFIC ANEMIA NOS 10/24/2016 CRISTO PAAH S DIRECTOR OF GRADUATE ADMISSIONS Ot 3 11 DEPRESSIVE DISORDER NEC 10/24/2016 TED PA S DIRECTOR OF GRADUATE ADMISSIONS Ot 530.81 ESOPHAGEAL REFLUX 10/24/2016 TED PA S DIRECTOR OF GRADUATE ADMISSIONS Ot 536.3 GASTROPARESIS 10/24/2016 TED PA S DIRECTOR OF GRADUATE ADMISSIONS Ot 607.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, ORGANIC ORIGN 10/24/2016 TED PA S DIRECTOR OF GRADUATE ADMISSIONS Ot V58.69 OT MED,LT,CURRENT USE 10/24/2016 VIRAJ SOLIS, ROXI Oseguera Ot 154.1 MALIGNANT NEOPL RECTUM 10/24/2016 VIRAJ SOLIS, ROXI Oseguera Ot 154.1 MALIGNANT NEOPL RECTUM 10/24/2016 ROXI CALI MD, Ot C20 [...] 10/24/2016 ROXI CALI MD, Ot 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 10/24/2016 ROXI CALI MD, [...] Ot N39.490 OVERFLOW INCONTINENCE 10/24/2016 ROXI CALI MD Ot Z79.899 OTHER RETIREMENT (CURRENT) DRUG THERAPY 10/24/2016 ROXI CALI MD [...] Ot N39.490 OVERFLOW INCONTINENCE 10/24/2016 ROXI CALI MD Ot Z79.899 OTHER RETIREMENT (CURRENT) DRUG THERAPY 10/24/2016 ROXI CALI MD, Ot Z92.3 PERSONAL HISTORY OF IRRADIATION 10/24/2016 ROXI CALI MD, Ot C20 MALIGNANT NEOPLASM OF RECTUM 11/12/2016 AUGUSTO DICKSONLINDA Ot E86.0 DEHYDRATION 11/12/2016 AUGUSTO DICKSONLINDA Ot E87.6 HYPOKALEMIA 11/12/2016 AUGUSTO DICKSONLINDA Ot G89.29 OTHER CHRONIC PAIN 11/12/2016 AUGUSTO DICKSONLINDA Ot R10.84 GENERALIZED ABDOMINAL PAIN 11/12/2016 AUGUSTO DICKSONLINDA Ot R11.2 NAUSEA WITH VOMITING, UNSPECIFIED 11/12/2016 AUGUSTO DICKSONLINDA Ot R19.7 DIARRHEA, UNSPECIFIED 11/12/2016 AUGUSTO DICKSONLINDA Ot Z85.048 PRSNL HX OF MALIG NEOPLM OF RECTUM, RECT 11/12/2016 AUGUSTO DICKSONLINDA Ot Z93.2 ILEOSTOMY STATUS 11/13/2016 INEZ DICKSON JOSE ANTONIO K Ot G89.29 OTHER CHRONIC PAIN 11/13/2016 INEZ DOJOSE ANTONIO Ot K76.0 FATTY (CHANGE OF) LIVER, NOT ELSEWHERE C 11/13/2016 INEZ JOSE ANTONIO DICKSON Ot R10.84 GENERALIZED ABDOMINAL PAIN 11/13/2016 INEZ DICKSONJOSE ANTONIO Ot R11.2 NAUSEA WITH VOMITING, UNSPECIFIED 11/13/2016 INEZ JOSE ANTONIO DICKSON Ot Z85.048 PRSNL HX OF MALIG NEOPLM OF RECTUM, RECT 11/13/2016 INEZ DICKSONJOSE ANTONIO Ot Z93.2 ILEOSTOMY STATUS 11/13/2016 JOSE ANTONIO WILEY DO Ot Z98.0 INTESTINAL BYPASS AND ANASTOMOSIS STATUS 11/15/2016 VIRAJ SOLIS, ROXI Oseguera Ot C20 MALIGNANT NEOPLASM OF RECTUM 11/29/2016 ROXI CALI MD, Ot C20 MALIGNANT NEOPLASM OF RECTUM 12/09/2016 ROXI CALI MD, Ot C20 MALIGNANT NEOPLASM OF RECTUM 12/09/2016 ROXI CALI MD Ot D50.9 IRON DEFICIENCY ANEMIA, UNSPECIFIED 12/09/2016 ROXI CALI MD, Ot F33.9 MAJOR DEPRESSIVE DISORDER, RECURRENT, UN 12/09/2016 ROXI CALI MD Ot G47.00 INSOMNIA, UNSPECIFIED 12/09/2016 ROXI CALI MD Ot N39.490 OVERFLOW INCONTINENCE 12/09/2016 ROXI CALI MD, Ot 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 12/09/2016 ROXI CALI MD, [...] 12/11/2016 ROXI CALI MD, Ot 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 12/11/2016 ROXI CALI MD, Ot Z92.3 PERSONAL HISTORY OF IRRADIATION 12/15/2016 LINDA CASAS DO, Ot E86.0 DEHYDRATION 12/15/2016 LINDA CASAS DO, Ot E87.6 HYPOKALEMIA 12/15/2016 LINDA CASAS DO, Ot G89.29 OTHER CHRONIC PAIN 12/15/2016 LINDA CASAS DO, Ot R10.84 GENERALIZED ABDOMINAL PAIN 12/15/2016 LINDA CASAS DO, Ot R11.2 NAUSEA WITH VOMITING, UNSPECIFIED 12/15/2016 LINDA CASAS DO, Ot R19.7 DIARRHEA, UNSPECIFIED 12/15/2016 LINDA CASAS DO, Ot Z85.048 PRSNL HX OF MALIG NEOPLM OF RECTUM, RECT 12/15/2016 LINDA CASAS DO, Ot Z93.2 ILEOSTOMY STATUS 01/01/2017 CLAUDIA PLEITEZ MD, Ot C20 MALIGNANT NEOPLASM OF RECTUM 01/01/2017 CLAUDIA PLEITEZ MD, Ot D50. 9 IRON DEFICIENCY ANEMIA, UNSPECIFIED 01/01/2017 CLAUDIA PLEITEZ MD, Ot F33. 9 MAJOR DEPRESSIVE DISORDER, RECURRENT, UN 01/01/2017 CLAUDIA PLEITEZ MD, Ot G47. 00 INSOMNIA, UNSPECIFIED 01/01/2017 CLAUDIA PLEITEZ MD, Ot N39.490 OVERFLOW INCONTINENCE 01/01/2017 CLAUDIA PLEITEZ MD, Ot Z79.899 OTHER RETIREMENT (CURRENT) DRUG THERAPY 01/01/2017 CLAUDIA PLEITZE MD, Ot Z92. 3 PERSONAL HISTORY OF IRRADIATION 01/03/2017 KATRINAJANINE CALABRESE MD Ot E86 .0 DEHYDRATION 01/03/2017 JANINE HERNDON MD Ot E87 .2 ACIDOSIS 01/03/2017 JANINE HERNDON MD, Ot E87 .6 HYPOKALEMIA 01/03/2017 JANINE HERNDON MD Ot F32 .9 MAJOR DEPRESSIVE DISORDER, SINGLE EPISOD 01/03/2017 JANINE HERNDON MD Ot F41 .9 ANXIETY DISORDER, UNSPECIFIED 01/03/2017 JANINE HERNDON MD, Ot I10 ESSENTIAL (PRIMARY) HYPERTENSION 01/03/2017 JANINE HERNDON MD Ot K21 .9 GASTRO-ESOPHAGEAL REFLUX DISEASE WITHOUT 01/03/2017 JANINE HERNDON MD Ot K44 .9 DIAPHRAGMATIC HERNIA WITHOUT OBSTRUCTION 01/03/2017 JANINE HERNDON MD Ot K56.60 UNSPECIFIED INTESTINAL OBSTRUCTION 01/03/2017 JANINE HERNDON MD, Ot K56 .7 ILEUS, UNSPECIFIED 01/03/2017 JANINE HERNDON MD Ot K59.03 DRUG INDUCED CONSTIPATION 01/03/2017 JANINE HERNDON MD Ot N17 .9 ACUTE KIDNEY FAILURE, UNSPECIFIED 01/03/2017 JANINE HERNDON MD Ot N39 .0 URINARY TRACT INFECTION, SITE NOT SPECIF 01/03/2017 JANINE HERNDON MD Ot N99.521 INFECTION OF INCONTINENT EXTERNAL STOMA 01/03/2017 JANINE HERNDON MD Ot R15 .9 FULL INCONTINENCE OF FECES 01/03/2017 JANINE HERNDON MD Ot R63 .0 ANOREXIA 01/03/2017 JANINE HERNDON MD Ot T40.2X5A ADVERSE EFFECT OF OTHER OPIOIDS, INITIAL 01/03/2017 JANINE HERNDON MD Ot Z85.048 PRSNL HX OF MALIG NEOPLM OF RECTUM, RECT 01/03/2017 JANINE HERNDON MD, Ot Z85.51 PERSONAL HISTORY OF MALIGNANT NEOPLASM O 01/03/2017 JANINE HERNDON MD, Ot Z92.21 PERSONAL HISTORY OF ANTINEOPLASTIC CHEMO 01/03/2017 JANINE HERNDON MD, Ot Z92 .3 PERSONAL HISTORY OF IRRADIATION 01/12/2017 NATY SOLIS, SHAY Lester Ot E87.6 HYPOKALEMIA 01/12/2017 NATY SOLIS, SHAY Lester Ot F32.9 MAJOR DEPRESSIVE DISORDER, SINGLE EPISOD 01/12/2017 NATY SOLIS, SHAY Lester Ot F41.9 ANXIETY DISORDER, UNSPECIFIED 01/12/2017 NATY SOLIS, SHAY Lester Ot I10 ESSENTIAL (PRIMARY) HYPERTENSION 01/12/2017 NATY SOLIS, SHAY Lester Ot K21.9 GASTRO-ESOPHAGEAL REFLUX DISEASE WITHOUT 01/12/2017 NATY SOLIS, SHAY Lester Ot K59.00 CONSTIPATION, UNSPECIFIED 01/12/2017 NATY SOLIS, SHAY Lester Ot N39.0 URINARY TRACT INFECTION, SITE NOT SPECIF 01/12/2017 NATY SOLIS, SHAY Lester Ot R10.31 RIGHT LOWER QUADRANT PAIN 01/12/2017 NATY SOLIS, SHAY Lester Ot R10.32 LEFT LOWER QUADRANT PAIN 01/12/2017 NATY SOLIS, SHAY Lester Ot Z79.899 OTHER RETIREMENT (CURRENT) DRUG THERAPY 01/30/2017 INEZ DO, JOSE ANTONIO K Ot F32.9 MAJOR DEPRESSIVE DISORDER, SINGLE EPISOD 01/30/2017 INEZ DO JOSE ANTONIO K Ot F41.9 ANXIETY DISORDER, UNSPECIFIED 01/30/2017 INEZ DO, JOSE ANTONIO K Ot G43.909 MIGRAINE, UNSP, NOT INTRACTABLE, WITHOUT 01/30/2017 INEZ DO, JOSE ANTONIO K Ot I10 ESSENTIAL (PRIMARY) HYPERTENSION 01/30/2017 INEZ DO JOSE ANTONIO K Ot K21.9 GASTRO-ESOPHAGEAL REFLUX DISEASE WITHOUT 01/30/2017 INEZ DO JOSE ANTONIO K Ot M54.9 DORSALGIA, UNSPECIFIED 01/30/2017 INEZ DO JOSE ANTONIO K Ot N39.0 URINARY TRACT INFECTION, SITE NOT SPECIF 01/30/2017 INEZ DO JOSE ANTONIO K Ot R11.2 NAUSEA WITH VOMITING, UNSPECIFIED 01/30/2017 INEZ DO JOSE ANTONIO K Ot R19.7 DIARRHEA, UNSPECIFIED 01/30/2017 INEZ DO JOSE ANTONIO K Ot Z82.49 FAMILY HX OF ISCHEM HEART DIS AND OTH DI 01/30/2017 INEZ DO JOSE ANTONIO K Ot Z85.048 PRSNL HX OF MALIG NEOPLM OF RECTUM, RECT 01/30/2017 INEZ DICKSON JOSE ANTONIO K Ot Z85.51 PERSONAL HISTORY OF MALIGNANT NEOPLASM O 01/30/2017 INEZ DO JOSE ANTONIO Oseguera Ot Z87.19 PERSONAL HISTORY OF OTHER DISEASES OF TH 01/30/2017 INEZ DICKSON JOSE ANTONIO Ana Rosa Ot 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 03/14/2017 CLAUDIA PLEITEZ MD, Ot C20 MALIGNANT NEOPLASM OF RECTUM 03/14/2017 CLAUDIA PLEITEZ MD, Ot D50. 9 IRON DEFICIENCY ANEMIA, UNSPECIFIED 03/14/2017 CLAUDIA PLEITEZ MD, Ot F33. 9 MAJOR DEPRESSIVE DISORDER, RECURRENT, UN 03/14/2017 CLAUDIA PLEITEZ MD, Ot G47. 00 INSOMNIA, UNSPECIFIED 03/14/2017 CLAUDIA PLEITEZ MD, Ot N39.490 OVERFLOW INCONTINENCE 03/14/2017 CLAUDIA PLEITEZ MD, Ot 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 03/14/2017 CLAUDIA PLEITEZ MD, Ot Z92. 3 PERSONAL HISTORY OF IRRADIATION 03/17/2017 LINDA CASAS DO, Ot E86.0 DEHYDRATION 03/17/2017 LINDA CASAS DO, Ot E87.6 HYPOKALEMIA 03/17/2017 LINDA CASAS DO, Ot G89.29 OTHER CHRONIC PAIN 03/17/2017 LINDA CASAS DO, Ot R10.84 GENERALIZED ABDOMINAL PAIN 03/17/2017 LINDA CASAS DO, Ot R11.2 NAUSEA WITH VOMITING, UNSPECIFIED 03/17/2017 LINDA CASAS DO, Ot R19.7 DIARRHEA, UNSPECIFIED 03/17/2017 LINDA CASAS DO, Ot Z85.048 PRSNL HX OF MALIG NEOPLM OF RECTUM, RECT 03/17/2017 LINDA CASAS DO, Ot Z93.2 ILEOSTOMY STATUS 04/07/2017 CLAUDIA PLEITEZ MD, Ot C20 MALIGNANT NEOPLASM OF RECTUM 04/07/2017 CLAUDIA PLEITEZ MD, Ot D50. 9 IRON DEFICIENCY ANEMIA, UNSPECIFIED 04/07/2017 CLAUDIA PLEITEZ MD, Ot F33. 9 MAJOR DEPRESSIVE DISORDER, RECURRENT, UN 04/07/2017 CLAUDIA PLEITEZ MD, Ot G47. 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 3 PERSONAL HISTORY OF IRRADIATION 04/15/2017 CLAUDIA PLEITEZ MD Ot C20 MALIGNANT NEOPLASM OF RECTUM 04/15/2017 CLAUDIA PLEITEZ MD Ot D50. 9 IRON DEFICIENCY ANEMIA, UNSPECIFIED 04/15/2017 CLAUDIA PLEITEZ MD Ot F33. 9 MAJOR DEPRESSIVE DISORDER, RECURRENT, UN 04/15/2017 CLAUDIA PLEITEZ MD Ot G47. 00 INSOMNIA, UNSPECIFIED 04/15/2017 CLAUDIA PLEITEZ MD Ot N39.490 OVERFLOW INCONTINENCE 04/15/2017 CLAUDIA PLEITEZ MD Ot Z79.899 OTHER RETIREMENT (CURRENT) DRUG THERAPY 04/15/2017 CLAUDIA PLEITEZ MD, Ot Z92. 3 PERSONAL HISTORY OF IRRADIATION 04/18/2017 LIZBETH SOLIS, SHANTE David Ot 154.1 MALIGNANT NEOPL RECTUM 04/18/2017 LIZBETH SOLIS, SHANTE David Ot 571.8 CHRONIC LIVER DIS NEC 04/18/2017 SHANTE NIEVES MD Ot 591 HYDRONEPHROSIS 04/18/2017 SANTOS SOLIS, ADOLPH Jon Ot 154.1 MALIGNANT NEOPL RECTUM 04/18/2017 SANTOS SOLIS, ADOLPH Jon Ot V72.63 PRE-PROCEDURAL LABORATORY EXAMINATION 04/18/2017 SANTOS SOLIS, ADOLPH Jon Ot V74.8 SCREEN-BACTERIAL DIS NEC 04/18/2017 TED PA DIRECTOR OF GRADUATE ADMISSIONS Ot 154.1 MALIGNANT NEOPL RECTUM 04/18/2017 TED PAP Ot 280.9 IRON DEFIC ANEMIA NOS 04/18/2017 TED PA DIRECTOR OF GRADUATE ADMISSIONS Ot 3 11 DEPRESSIVE DISORDER NEC 04/18/2017 TED PA DIRECTOR OF GRADUATE ADMISSIONS Ot 530.81 ESOPHAGEAL REFLUX 04/18/2017 TED PA DIRECTOR OF GRADUATE ADMISSIONS Ot 536.3 GASTROPARESIS 04/18/2017 TED PA DIRECTOR OF GRADUATE ADMISSIONS Ot 607.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, ORGANIC ORIGN 04/18/2017 TED PAP Ot V58.69 OTH MED,LT,CURRENT USE 04/18/2017 TED PA DIRECTOR OF GRADUATE ADMISSIONS Ot 154.1 MALIGNANT NEOPL RECTUM 04/18/2017 TED PA DIRECTOR OF GRADUATE ADMISSIONS Ot 280.9 IRON DEFIC ANEMIA NOS 04/18/2017 TED PA DIRECTOR OF GRADUATE ADMISSIONS Ot 3 11 DEPRESSIVE DISORDER NEC 04/18/2017 TED PA DIRECTOR OF GRADUATE ADMISSIONS Ot 530.81 ESOPHAGEAL REFLUX 04/18/2017 TED PA DIRECTOR OF GRADUATE ADMISSIONS Ot 536.3 GASTROPARESIS 04/18/2017 TED PA DIRECTOR OF GRADUATE ADMISSIONS Ot 607.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, ORGANIC ORIGN 04/18/2017 TED PA DIRECTOR OF GRADUATE ADMISSIONS Ot V58.69 OT MED,LT,CURRENT USE 04/18/2017 VIRAJ SOLIS, ROXI Oseguera Ot 154.1 MALIGNANT NEOPL RECTUM 04/18/2017 VIRAJ SOLIS, ROXI Oseguera Ot 154.1 MALIGNANT NEOPL RECTUM 04/18/2017 VIRAJ SOLIS, ROXI Oseguera Ot C20 MALIGNANT NEOPLASM OF RECTUM 04/18/2017 VIRAJ SOLIS, ROXI Oseguera Ot C20 MALIGNANT NEOPLASM OF RECTUM 04/18/2017 CLAUDIA PLEITEZ MD, Ot C20 MALIGNANT NEOPLASM OF RECTUM 04/18/2017 CLAUDIA PLEITEZ MD Ot D50. 9 IRON DEFICIENCY ANEMIA, UNSPECIFIED 04/18/2017 CLAUDIA PLEITEZ MD Ot F33. 9 MAJOR DEPRESSIVE DISORDER, RECURRENT, UN 04/18/2017 CLAUDIA PLEITEZ MD Ot G47. 00 INSOMNIA, UNSPECIFIED 04/18/2017 CLAUDIA PLEITEZ MD Ot N39.490 OVERFLOW INCONTINENCE 04/18/2017 CLAUDIA PLEITEZ MD Ot 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 04/18/2017 CLAUDIA PLEITEZ MD Ot Z92. 3 PERSONAL HISTORY OF IRRADIATION 04/18/2017 WAYLON TAYLOR MD Ot F32.9 MAJOR DEPRESSIVE DISORDER, SINGLE EPISOD 04/18/2017 WAYLON TAYLOR MD Ot F41.9 ANXIETY DISORDER, UNSPECIFIED 04/18/2017 WAYLON TAYLOR MD Ot G43.909 MIGRAINE, UNSP, NOT INTRACTABLE, WITHOUT 04/18/2017 WAYLON TAYLOR MD Ot I10 ESSENTIAL (PRIMARY) HYPERTENSION 04/18/2017 WAYLON TAYLOR MD, Ot K21.9 GASTRO-ESOPHAGEAL REFLUX DISEASE WITHOUT 04/18/2017 WAYLON TYALOR MD Ot R11.2 NAUSEA WITH VOMITING, UNSPECIFIED 04/18/2017 WAYLON TAYLOR MD Ot R19.7 DIARRHEA, UNSPECIFIED 04/18/2017 WAYLON TAYLOR MD, Ot Z85.048 PRSNL HX OF MALIG NEOPLM OF RECTUM, RECT 04/18/2017 WAYLON TAYLOR MD, Ot Z85.59 PERSONAL HISTORY OF MALIG NEOPLASM OF UR 04/18/2017 WAYLON TAYLOR MD, Ot Z92.21 PERSONAL HISTORY OF ANTINEOPLASTIC CHEMO 04/25/2017 SHAY ALFONSO MD Ot F32.9 MAJOR DEPRESSIVE DISORDER, SINGLE EPISOD 04/25/2017 SHAY ALFONSO MD, Ot F41.9 ANXIETY DISORDER, UNSPECIFIED 04/25/2017 SHAY ALFONSO MD Ot G43.909 MIGRAINE, UNSP, NOT INTRACTABLE, WITHOUT 04/25/2017 SHAY ALFONSO MD Ot I10 ESSENTIAL (PRIMARY) HYPERTENSION 04/25/2017 SHAY ALFONSO MD Ot K21.9 GASTRO-ESOPHAGEAL REFLUX DISEASE WITHOUT 04/25/2017 SHAY ALFONSO MD Ot M79.621 PAIN IN RIGHT UPPER ARM 04/25/2017 SHAY ALFONSO MD Ot S42.342A DISPLACED SPIRAL FX SHAFT OF HUMERUS, LE 04/25/2017 SHAY ALFONSO MD Ot V48.5XXA SALES CONSULTANT INSURANCE INJURED IN NONCLSN [facility] ACCI 04/25/2017 SHAY ALFONSO MD, Ot Y92.410 [facility] [address] 04/25/2017 SHAY ALFONSO MD Ot Z82.49 FAMILY HX OF ISCHEM HEART DIS AND OTH DI 04/25/2017 SHAY ALFONSO MD, Ot Z85.048 PRSNL HX OF MALIG NEOPLM OF RECTUM, RECT 04/25/2017 SHAY ALFONSO MD Ot Z87.11 PERSONAL HISTORY OF PEPTIC ULCER DISEASE 04/25/2017 SHAY ALFONSO MD Ot Z87.440 PERSONAL HISTORY OF URINARY (TRACT) INFE 04/25/2017 SHAY ALFONSO MD Ot Z92.21 PERSONAL HISTORY OF ANTINEOPLASTIC CHEMO 04/25/2017 SHAY ALFONSO MD Ot Z92.3 PERSONAL HISTORY OF IRRADIATION 04/27/2017 SHAY ALFONSO MD Ot F32.9 MAJOR DEPRESSIVE DISORDER, SINGLE EPISOD 04/27/2017 SHAY ALFONSO MD, Ot F41.9 ANXIETY DISORDER, UNSPECIFIED 04/27/2017 SHAY ALFONSO MD Ot G43.909 MIGRAINE, UNSP, NOT INTRACTABLE, WITHOUT 04/27/2017 SHAY ALFONSO MD Ot I10 ESSENTIAL (PRIMARY) HYPERTENSION 04/27/2017 SHAY ALFONSO MD Ot K21.9 GASTRO-ESOPHAGEAL REFLUX DISEASE WITHOUT 04/27/2017 SHAY ALFONSO MD Ot M79.621 PAIN IN RIGHT UPPER ARM 04/27/2017 SHAY ALFONSO MD Ot S42.342A DISPLACED SPIRAL FX SHAFT OF HUMERUS, LE 04/27/2017 SHAY ALFONSO MD Ot V48.5XXA SALES CONSULTANT INSURANCE INJURED IN NONCLSN [facility] ACC[facility] 04/27/2017 SHAY ALFONSO MD Ot Y92.410 [facility] [address] 04/27/2017 SHAY ALFONSO MD Ot Z82.49 FAMILY HX OF ISCHEM HEART DIS AND OTH DI 04/27/2017 SHAY ALFONSO MD Ot Z85.048 PRSNL HX OF MALIG NEOPLM OF RECTUM, RECT 04/27/2017 SHAY ALFONSO MD Ot Z87.11 PERSONAL HISTORY OF PEPTIC ULCER DISEASE 04/27/2017 SHAY ALFONSO MD Ot Z87.440 PERSONAL HISTORY OF URINARY (TRACT) INFE 04/27/2017 SHAY ALFONSO MD Ot Z92.21 PERSONAL HISTORY OF ANTINEOPLASTIC CHEMO 04/27/2017 SHAY ALFONSO MD Ot Z92.3 PERSONAL HISTORY OF IRRADIATION 05/02/2017 SHAY ALFONSO MD, Ot F32.9 MAJOR DEPRESSIVE DISORDER, SINGLE EPISOD 05/02/2017 SHAY ALFONSO MD, Ot F41.9 ANXIETY DISORDER, UNSPECIFIED 05/02/2017 SHAY ALFONSO MD Ot G43.909 MIGRAINE, UNSP, NOT INTRACTABLE, WITHOUT 05/02/2017 NATY SOLIS, SHAY Lester Ot I10 ESSENTIAL (PRIMARY) HYPERTENSION 05/02/2017 HSAY ALFONSO MD, Ot K21.9 GASTRO-ESOPHAGEAL REFLUX DISEASE WITHOUT 05/02/2017 SHAY ALFONSO MD, Ot M79.621 PAIN IN RIGHT UPPER ARM 05/02/2017 SHAY ALFONSO MD, Ot S42.342A DISPLACED SPIRAL FX SHAFT OF HUMERUS, LE 05/02/2017 SHAY ALFONSO MD, Ot V48.5XXA SALES CONSULTANT INSURANCE INJURED IN NONCLSN [facility] ACCI 05/02/2017 SHAY ALFONSO MD, Ot Y92.410 [facility] [address] 05/02/2017 SHAY ALFONSO MD, Ot Z82.49 FAMILY HX OF ISCHEM HEART DIS AND OTH DI 05/02/2017 SHAY ALFONSO MD, Ot Z85.048 PRSNL HX OF MALIG NEOPLM OF RECTUM, RECT 05/02/2017 SHAY ALFONSO MD, Ot Z87.11 PERSONAL HISTORY OF PEPTIC ULCER DISEASE 05/02/2017 SHAY ALFONSO MD, Ot Z87.440 PERSONAL HISTORY OF URINARY (TRACT) INFE 05/02/2017 SHAY ALFONSO MD, Ot Z92.21 PERSONAL HISTORY OF ANTINEOPLASTIC CHEMO 05/02/2017 SHAY ALFONSO MD, Ot Z92.3 PERSONAL HISTORY OF IRRADIATION 05/06/2017 JOSE ANTONIO WILEY DO, Ot F41.9 ANXIETY DISORDER, UNSPECIFIED 05/06/2017 JOSE ANTONIO WILEY DO, Ot G89.18 OTHER ACUTE POSTPROCEDURAL PAIN 05/06/2017 JOSE ANTONIO WILEY DO, Ot M79.602 PAIN IN LEFT ARM 05/06/2017 JOSE ANTONIO WILEY DO, Ot S46.912 A STRAIN UNSP MUSC/FASC/TEND AT SHLDR/UP A 05/06/2017 JOSE ANTONIO WILEY DO, Ot X50.0XX A OVEREXERTION FROM STRENUOUS MOVEMENT OR 05/06/2017 JOSE ANTONIO WILEY DO, Ot Z82.49 FAMILY HX OF ISCHEM HEART DIS AND OTH DI 05/06/2017 VIRAJ SOLIS, ROXI Oseguera Ot C20 MALIGNANT NEOPLASM OF RECTUM 05/06/2017 ROXI CALI MD Ot C20 MALIGNANT NEOPLASM OF RECTUM 05/06/2017 CLAUDIA PLEITEZ MD, Ot C20 MALIGNANT NEOPLASM OF RECTUM 05/06/2017 CLAUDIA PLEITEZ MD, Ot D50. 9 IRON DEFICIENCY ANEMIA, UNSPECIFIED 05/06/2017 CLAUDIA PLEITEZ MD, Ot F33. 9 MAJOR DEPRESSIVE DISORDER, RECURRENT, UN 05/06/2017 CLAUDIA PLEITEZ MD, Ot G47. 00 INSOMNIA, UNSPECIFIED 05/06/2017 CLAUDIA PLEITEZ MD, Ot N39.490 OVERFLOW INCONTINENCE 05/06/2017 CLAUDIA PLEITEZ MD, Ot Z79.899 OTHER RETIREMENT (CURRENT) DRUG THERAPY 05/06/2017 CLAUDIA PLEITEZ MD, Ot Z92. 3 PERSONAL HISTORY OF IRRADIATION 05/09/2017 JOSE ANTONIO WILEY DO, Ot F41.9 ANXIETY DISORDER, UNSPECIFIED 05/09/2017 JOSE ANTONIO WILEY DO, Ot G89.18 OTHER ACUTE POSTPROCEDURAL PAIN 05/09/2017 JOSE ANTONIO WILEY DO, Ot M79.602 PAIN IN LEFT ARM 05/09/2017 JOSE ANTONIO WILEY DO, Ot S46.912 A STRAIN UNSP MUSC/FASC/TEND AT SHLDR/UP A 05/09/2017 JOSE ANTONIO WILEY DO, Ot X50.0XX A OVEREXERTION FROM STRENUOUS MOVEMENT OR 05/09/2017 JOSE ANTONIO WILEY DO, Ot Z82.49 FAMILY HX OF ISCHEM HEART DIS AND OTH DI 05/11/2017 NATY SOLIS, SHAY Lester Ot F32.9 MAJOR DEPRESSIVE DISORDER, SINGLE EPISOD 05/11/2017 NATY SOLIS, SHAY Lester Ot F41.9 ANXIETY DISORDER, UNSPECIFIED 05/11/2017 SHAY ALFONSO MD, Ot G43.909 MIGRAINE, UNSP, NOT INTRACTABLE, WITHOUT 05/11/2017 SHAY ALFONSO MD Ot I10 ESSENTIAL (PRIMARY) HYPERTENSION 05/11/2017 SHAY ALFONSO MD, Ot K21.9 GASTRO-ESOPHAGEAL REFLUX DISEASE WITHOUT 05/11/2017 SHAY ALFONSO MD, Ot M79.621 PAIN IN RIGHT UPPER ARM 05/11/2017 SHAY ALFONSO MD Ot S42.342A DISPLACED SPIRAL FX SHAFT OF HUMERUS, LE 05/11/2017 SHAY ALFONSO MD, Ot V48.5XXA SALES CONSULTANT INSURANCE INJURED IN NONCLSN [facility] ACCI 05/11/2017 SHAY ALFONSO MD, Ot Y92.410 [facility] [address] 05/11/2017 SHAY ALFONSO MD, Ot Z82.49 FAMILY HX OF ISCHEM HEART DIS AND OTH DI 05/11/2017 SHAY ALFONSO MD Ot Z85.048 PRSNL HX OF MALIG NEOPLM OF RECTUM, RECT 05/11/2017 SHAY ALFONSO MD Ot Z87.11 PERSONAL HISTORY OF PEPTIC ULCER DISEASE 05/11/2017 SHAY ALFONSO MD Ot Z87.440 PERSONAL HISTORY OF URINARY (TRACT) INFE 05/11/2017 SHAY ALFONSO MD Ot Z92.21 PERSONAL HISTORY OF ANTINEOPLASTIC CHEMO 05/11/2017 SHAY ALFONSO MD Ot Z92.3 PERSONAL HISTORY OF IRRADIATION 06/13/2017 JOSE ANTONIO WILEY DO Ot F41.9 ANXIETY DISORDER, UNSPECIFIED 06/13/2017 JOSE ANTONIO WILEY DO Ot G89.18 OTHER ACUTE POSTPROCEDURAL PAIN 06/13/2017 JOSE ANTONIO WILEY DO Ot M79.602 PAIN IN LEFT ARM 06/13/2017 JOSE ANTONIO WILEY DO Ot S46.912 A STRAIN UNSP MUSC/FASC/TEND AT SHLDR/UP A 06/13/2017 JOSE ANTONIO WILEY DO Ot X50.0XX A OVEREXERTION FROM STRENUOUS MOVEMENT OR 06/13/2017 JOSE ANTONIO WILEY DO Ot Z82.49 FAMILY HX OF ISCHEM HEART DIS AND OTH DI 06/13/2017 JOSE ANTONIO WILEY DO Ot F41.9 ANXIETY DISORDER, UNSPECIFIED 06/13/2017 JOSE ANTONIO WILEY DO Ot G89.18 OTHER ACUTE POSTPROCEDURAL PAIN 06/13/2017 JOSE ANTONIO WILEY DO Ot M79.602 PAIN IN LEFT ARM 06/13/2017 JOSE ANTONIO WILEY DO Ot S46.912 A STRAIN UNSP MUSC/FASC/TEND AT SHLDR/UP A 06/13/2017 JOSE ANTONIO WILEY DO Ot X50.0XX A OVEREXERTION FROM STRENUOUS MOVEMENT OR 06/13/2017 JOSE ANTONIO WILEY DO Ot Z82.49 FAMILY HX OF ISCHEM HEART DIS AND OTH DI 09/11/2017 CLAUDIA PLEITEZ MD, Ot K76. 0 FATTY (CHANGE OF) LIVER, NOT ELSEWHERE C 09/11/2017 CLAUDIA PLEITEZ MD, Ot R74. 8 ABNORMAL LEVELS OF OTHER SERUM ENZYMES 09/11/2017 CLAUDIA PLEITEZ MD, Ot Z85.048 PRSNL HX OF MALIG NEOPLM OF RECTUM, RECT 09/11/2017 CLAUDIA PLEITEZ MD, Ot Z90. 6 ACQUIRED ABSENCE OF OTHER PARTS OF URINA 09/11/2017 CLAUDIA PLEITEZ MD, Ot Z93. 8 OTHER ARTIFICIAL OPENING STATUS 10/04/2017 CLAUDIA PLEITEZ MD, Ot D50. 9 IRON DEFICIENCY ANEMIA, UNSPECIFIED 10/04/2017 CLAUDIA PLEITEZ MD, Ot F33. 9 MAJOR DEPRESSIVE DISORDER, RECURRENT, UN 10/04/2017 CLAUDIA PLEITEZ MD, Ot G47. 00 INSOMNIA, UNSPECIFIED 10/04/2017 CLAUDIA PLEITEZ MD, Ot G62. 89 OTHER SPECIFIED POLYNEUROPATHIES 10/04/2017 CLAUDIA PLEITEZ MD, Ot K21. 9 GASTRO-ESOPHAGEAL REFLUX DISEASE WITHOUT 10/04/2017 CLAUDIA PLEITEZ MD, Ot K31. 84 GASTROPARESIS 10/04/2017 CLAUDIA PLEITEZ MD, Ot N39.490 OVERFLOW INCONTINENCE 10/04/2017 CLAUDIA PLEITEZ MD, Ot R79. 89 OTHER SPECIFIED ABNORMAL FINDINGS OF BLO 10/04/2017 CLAUDIA PLEITEZ MD, Ot Z08 ENCNTR FOR FOLLOW-UP EXAM AFTER TRTMT FO 10/04/2017 CLAUDIA PLEITEZ MD, Ot Z79.899 OTHER RETIREMENT (CURRENT) DRUG THERAPY 10/04/2017 CLAUDIA PLEITEZ MD, Ot Z85.048 PRSNL HX OF MALIG NEOPLM OF RECTUM, RECT 10/04/2017 CLAUDIA PLEITEZ MD, Ot Z87.440 PERSONAL HISTORY OF URINARY (TRACT) INFE 10/04/2017 CLAUDIA PLEITEZ MD, Ot Z92. 21 PERSONAL HISTORY OF ANTINEOPLASTIC CHEMO 10/04/2017 CLAUDIA PLEITEZ MD, Ot Z92. 3 PERSONAL HISTORY OF IRRADIATION 10/06/2017 CLAUDIA PLEITEZ MD, Ot K76. 0 FATTY (CHANGE OF) LIVER, NOT ELSEWHERE C 10/06/2017 CLAUDIA PLEITEZ MD, Ot R74. 8 ABNORMAL LEVELS OF OTHER SERUM ENZYMES 10/06/2017 CLAUDIA PLEITEZ MD, Ot Z85.048 PRSNL HX OF MALIG NEOPLM OF RECTUM, RECT 10/06/2017 CLAUDIA PLEITEZ MD, Ot Z90. 6 ACQUIRED ABSENCE OF OTHER PARTS OF URINA 10/06/2017 CLAUDIA PLEITEZ MD, Ot Z93. 8 OTHER ARTIFICIAL OPENING STATUS 10/11/2017 CLAUDIA PLEITEZ MD, Ot D50. 9 IRON DEFICIENCY ANEMIA, UNSPECIFIED 10/11/2017 CLAUDIA PLEITEZ MD, Ot F33. 9 MAJOR DEPRESSIVE DISORDER, RECURRENT, UN 10/11/2017 CLAUDIA PLEITEZ MD, Ot G47. 00 INSOMNIA, UNSPECIFIED 10/11/2017 CLAUDIA PLEITEZ MD, Ot G62. 89 OTHER SPECIFIED POLYNEUROPATHIES 10/11/2017 CLAUDIA PLEITEZ MD, Ot K21. 9 GASTRO-ESOPHAGEAL REFLUX DISEASE WITHOUT 10/11/2017 CLAUDIA PLEITEZ MD, Ot K31. 84 GASTROPARESIS 10/11/2017 CLAUDIA PLEITEZ MD, Ot N39.490 OVERFLOW INCONTINENCE 10/11/2017 CLAUDIA PLEITEZ MD, Ot R79. 89 OTHER SPECIFIED ABNORMAL FINDINGS OF BLO 10/11/2017 CLAUDIA PLEITEZ MD, Ot Z08 ENCNTR FOR FOLLOW-UP EXAM AFTER TRTMT FO 10/11/2017 CLAUDIA PLEITEZ MD, Ot Z79.899 OTHER RETIREMENT (CURRENT) DRUG THERAPY 10/11/2017 CLAUDIA PLEITEZ MD, Ot Z85.048 PRSNL HX OF MALIG NEOPLM OF RECTUM, RECT 10/11/2017 CLAUDIA PLEITEZ MD, Ot Z87.440 PERSONAL HISTORY OF URINARY (TRACT) INFE 10/11/2017 CLAUDIA PLEITEZ MD, Ot Z92. 21 PERSONAL HISTORY OF ANTINEOPLASTIC CHEMO 10/11/2017 CLAUDIA PLEITEZ MD, Ot Z92. 3 PERSONAL HISTORY OF IRRADIATION 10/12/2017 CLAUDIA PLEITEZ MD, Ot K76. 0 FATTY (CHANGE OF) LIVER, NOT ELSEWHERE C 10/12/2017 CLAUDIA PLEITEZ MD, Ot R74. 8 ABNORMAL LEVELS OF OTHER SERUM ENZYMES 10/12/2017 CLAUDIA PLEITEZ MD, Ot Z85.048 PRSNL HX OF MALIG NEOPLM OF RECTUM, RECT 10/12/2017 CLAUDIA PLEITEZ MD, Ot Z90. 6 ACQUIRED ABSENCE OF OTHER PARTS OF URINA 10/12/2017 CLAUDIA PLEITEZ MD, Ot Z93. 8 OTHER ARTIFICIAL OPENING STATUS 12/04/2017 CLAUDIA PLEITEZ MD, Ot D50. 9 IRON DEFICIENCY ANEMIA, UNSPECIFIED 12/04/2017 CLAUDIA PLEITEZ MD, Ot F33. 9 MAJOR DEPRESSIVE DISORDER, RECURRENT, UN 12/04/2017 CLAUDIA PLEITEZ MD, Ot G47. 00 INSOMNIA, UNSPECIFIED 12/04/2017 CLAUDIA PLEITEZ MD, Ot G62. 89 OTHER SPECIFIED POLYNEUROPATHIES 12/04/2017 CLAUDIA PLEITEZ MD, Ot K21. 9 GASTRO-ESOPHAGEAL REFLUX DISEASE WITHOUT 12/04/2017 CLAUDIA PLEITEZ MD, Ot K31. 84 GASTROPARESIS 12/04/2017 CLAUDIA PLEITEZ MD, Ot N39.490 OVERFLOW INCONTINENCE 12/04/2017 CLAUDIA PLEITEZ MD, Ot R79. 89 OTHER SPECIFIED ABNORMAL FINDINGS OF BLO 12/04/2017 CLAUDIA PLEITEZ MD, Ot Z08 ENCNTR FOR FOLLOW-UP EXAM AFTER TRTMT FO 12/04/2017 CLAUDIA PLEITEZ MD, Ot Z79.899 OTHER RETIREMENT (CURRENT) DRUG THERAPY 12/04/2017 CLAUDIA PLEITEZ MD, Ot Z85.048 PRSNL HX OF MALIG NEOPLM OF RECTUM, RECT 12/04/2017 CLAUDIA PLEITEZ MD, Ot Z87.440 PERSONAL HISTORY OF URINARY (TRACT) INFE 12/04/2017 CLAUDIA PLEITEZ MD, Ot Z92. 21 PERSONAL HISTORY OF ANTINEOPLASTIC CHEMO 12/04/2017 CLAUDIA PLEITEZ MD, Ot Z92. 3 PERSONAL HISTORY OF IRRADIATION 12/05/2017 CLAUDIA PLEITEZ MD, Ot D50. 9 IRON DEFICIENCY ANEMIA, UNSPECIFIED 12/05/2017 CLAUDIA PLEITEZ MD, Ot F33. 9 MAJOR DEPRESSIVE DISORDER, RECURRENT, UN 12/05/2017 CLAUDIA PLEITEZ MD, Ot G47. 00 INSOMNIA, UNSPECIFIED 12/05/2017 CLAUDIA PLEITEZ MD, Ot G62. 89 OTHER SPECIFIED POLYNEUROPATHIES 12/05/2017 CLAUDIA PLEITEZ MD, Ot K21. 9 GASTRO-ESOPHAGEAL REFLUX DISEASE WITHOUT 12/05/2017 CLAUDIA PLEITEZ MD, Ot K31. 84 GASTROPARESIS 12/05/2017 CLAUDIA PLEITEZ MD, Ot N39.490 OVERFLOW INCONTINENCE 12/05/2017 CLAUDIA PLEITEZ MD, Ot R79. 89 OTHER SPECIFIED ABNORMAL FINDINGS OF BLO 12/05/2017 CLAUDIA PLEITEZ MD, Ot Z08 ENCNTR FOR FOLLOW-UP EXAM AFTER TRTMT FO 12/05/2017 CLAUDIA PLEITEZ MD, Ot Z79.899 OTHER RETIREMENT (CURRENT) DRUG THERAPY 12/05/2017 CLAUDIA PLEITEZ MD, Ot Z85.048 PRSNL HX OF MALIG NEOPLM OF RECTUM, RECT 12/05/2017 CLAUDIA PLEITEZ MD, Ot Z87.440 PERSONAL HISTORY OF URINARY (TRACT) INFE 12/05/2017 CLAUDIA PLEITEZ MD, Ot Z92. 21 PERSONAL HISTORY OF ANTINEOPLASTIC CHEMO 12/05/2017 CLAUDIA PLEITEZ MD, Ot Z92. 3 PERSONAL HISTORY OF IRRADIATION 01/18/2018 NANCY CLEVELAND DO, Ot F32.9 MAJOR DEPRESSIVE DISORDER, SINGLE EPISOD 01/18/2018 NANCY CLEVELAND DO, Ot F41.9 ANXIETY DISORDER, UNSPECIFIED 01/18/2018 NANCY CLEVELAND DO, Ot G43.909 MIGRAINE, UNSP, NOT INTRACTABLE, WITHOUT 01/18/2018 NANCY CLEVELAND DO, Ot K21.9 GASTRO-ESOPHAGEAL REFLUX DISEASE WITHOUT 01/18/2018 NANCY CLEVELAND DO, Ot K52.9 NONINFECTIVE GASTROENTERITIS AND COLITIS 01/18/2018 NANCY CLEVELAND DO, Ot N28.9 DISORDER OF KIDNEY AND URETER, UNSPECIFI 01/18/2018 NANCY CLEVELAND DO, Ot N39.0 URINARY TRACT INFECTION, SITE NOT SPECIF 01/18/2018 NANCY CLEVELAND DO, Ot R11.2 NAUSEA WITH VOMITING, UNSPECIFIED 01/18/2018 NANCY CLEVELAND DO, Ot 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 01/18/2018 NANCY CLEVELAND DO Ot Z79.899 OTHER RETIREMENT (CURRENT) DRUG THERAPY 01/18/2018 AIDANANDREYNANCY Gonzales DO Ot Z85.048 PRSNL HX OF MALIG NEOPLM OF RECTUM, RECT 01/18/2018 NANCY CLEVELAND DO Ot Z92.21 PERSONAL HISTORY OF ANTINEOPLASTIC CHEMO 01/18/2018 MEGHA DICKSON NANCY Gonzales Ot Z92.3 PERSONAL HISTORY OF IRRADIATION 03/29/2018 LIZBETH SOLIS, SHANTE David Ot 154.1 MALIGNANT NEOPL RECTUM 03/29/2018 LIZBETH SOLIS, SHANTE David Ot 571.8 CHRONIC LIVER DIS NEC 03/29/2018 LIZBETH SOLIS, SHANTE David Ot 591 HYDRONEPHROSIS 03/29/2018 SANTOS SOLIS, ADOLPH Jon Ot 154.1 MALIGNANT NEOPL RECTUM 03/29/2018 SANTOS SOLIS, ADOLPH Jon Ot V72.63 PRE-PROCEDURAL LABORATORY EXAMINATION 03/29/2018 SANTOS SOLIS, ADOLPH Jon Ot V74.8 SCREEN-BACTERIAL DIS NEC 03/29/2018 TED PA DIRECTOR OF GRADUATE ADMISSIONS Ot 154.1 MALIGNANT NEOPL RECTUM 03/29/2018 TED PA DIRECTOR OF GRADUATE ADMISSIONS Ot 280.9 IRON DEFIC ANEMIA NOS 03/29/2018 TED PA DIRECTOR OF GRADUATE ADMISSIONS Ot 3 11 DEPRESSIVE DISORDER NEC 03/29/2018 TED PA DIRECTOR OF GRADUATE ADMISSIONS Ot 530.81 ESOPHAGEAL REFLUX 03/29/2018 TED PA DIRECTOR OF GRADUATE ADMISSIONS Ot 536.3 GASTROPARESIS 03/29/2018 TED PA DIRECTOR OF GRADUATE ADMISSIONS Ot 607.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, ORGANIC ORIGN 03/29/2018 TED PA DIRECTOR OF GRADUATE ADMISSIONS Ot V58.69 OT MED,LT,CURRENT USE 03/29/2018 TED PA DIRECTOR OF GRADUATE ADMISSIONS Ot 154.1 MALIGNANT NEOPL RECTUM 03/29/2018 TED PA DIRECTOR OF GRADUATE ADMISSIONS Ot 280.9 IRON DEFIC ANEMIA NOS 03/29/2018 TED PA DIRECTOR OF GRADUATE ADMISSIONS Ot 3 11 DEPRESSIVE DISORDER NEC 03/29/2018 TED PA DIRECTOR OF GRADUATE ADMISSIONS Ot 530.81 ESOPHAGEAL REFLUX 03/29/2018 TED PA DIRECTOR OF GRADUATE ADMISSIONS Ot 536.3 GASTROPARESIS 03/29/2018 TED PA DIRECTOR OF GRADUATE ADMISSIONS Ot 607.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, ORGANIC ORIGN 03/29/2018 TED PA DIRECTOR OF GRADUATE ADMISSIONS Ot V58.69 OT MED,LT,CURRENT USE 03/29/2018 ROXI ACLI MD Ot 154.1 MALIGNANT NEOPL RECTUM 03/29/2018 ROXI CALI MD Ot 154.1 MALIGNANT NEOPL RECTUM 03/29/2018 ROXI CALI MD Ot C20 MALIGNANT NEOPLASM OF RECTUM 03/29/2018 ROXI CALI MD, Ot C20 MALIGNANT NEOPLASM OF RECTUM 03/29/2018 CLAUDIA PLEITEZ MD, Ot K76. 0 FATTY (CHANGE OF) LIVER, NOT ELSEWHERE C 03/29/2018 CLAUDIA PLEITEZ MD, Ot R74. 8 ABNORMAL LEVELS OF OTHER SERUM ENZYMES 03/29/2018 CLAUDIA PLEITEZ MD, Ot Z85.048 PRSNL HX OF MALIG NEOPLM OF RECTUM, RECT 03/29/2018 CLAUDIA PLEITEZ MD, Ot Z90. 6 ACQUIRED ABSENCE OF OTHER PARTS OF URINA 03/29/2018 CLAUDIA PLEITEZ MD, Ot Z93. 8 OTHER ARTIFICIAL OPENING STATUS 03/29/2018 CLAUDIA PLEITEZ MD, Ot D50. 9 IRON DEFICIENCY ANEMIA, UNSPECIFIED 03/29/2018 CLAUDIA PLEITEZ MD, Ot F33. 9 MAJOR DEPRESSIVE DISORDER, RECURRENT, UN 03/29/2018 CLAUDIA PLEITEZ MD, Ot G47. 00 INSOMNIA, UNSPECIFIED 03/29/2018 CLAUDIA PLEITEZ MD, Ot G62. 89 OTHER SPECIFIED POLYNEUROPATHIES 03/29/2018 CLAUDIA PLEITEZ MD, Ot K21. 9 GASTRO-ESOPHAGEAL REFLUX DISEASE WITHOUT 03/29/2018 CLAUDIA PLEITEZ MD, Ot K31. 84 GASTROPARESIS 03/29/2018 CLAUDIA PLEITEZ MD, Ot N39.490 OVERFLOW INCONTINENCE 03/29/2018 CLAUDIA PLEITEZ MD, Ot R79. 89 OTHER SPECIFIED ABNORMAL FINDINGS OF BLO 03/29/2018 CLAUDIA PLEITEZ MD, Ot Z08 ENCNTR FOR FOLLOW-UP EXAM AFTER TRTMT FO 03/29/2018 CLAUDIA PLEITEZ MD, Ot 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 03/29/2018 CLAUDIA PLEITEZ MD, Ot Z85.048 PRSNL HX OF MALIG NEOPLM OF RECTUM, RECT 03/29/2018 CLAUDIA PLEITEZ MD Ot Z87.440 PERSONAL HISTORY OF URINARY (TRACT) INFE 03/29/2018 CLAUDIA PLEITEZ MD, Ot Z92. 21 PERSONAL HISTORY OF ANTINEOPLASTIC CHEMO 03/29/2018 CLAUDIA PLEITEZ MD, Ot Z92. 3 PERSONAL HISTORY OF IRRADIATION 03/29/2018 CLAUDIA PLEITEZ MD, Ot D50. 9 IRON DEFICIENCY ANEMIA, UNSPECIFIED 03/29/2018 CLAUDIA PLEITEZ MD, Ot F33. 9 MAJOR DEPRESSIVE DISORDER, RECURRENT, UN 03/29/2018 CLAUDIA PLEITEZ MD, Ot G47. 00 INSOMNIA, UNSPECIFIED 03/29/2018 CLAUDIA PLEITEZ MD, Ot G62. 89 OTHER SPECIFIED POLYNEUROPATHIES 03/29/2018 CLAUDIA PLEITEZ MD, Ot K21. 9 GASTRO-ESOPHAGEAL REFLUX DISEASE WITHOUT 03/29/2018 CLAUDIA PLEITEZ MD Ot K31. 84 GASTROPARESIS 03/29/2018 CLAUDIA PLEITEZ MD, Ot N39.490 OVERFLOW INCONTINENCE 03/29/2018 CLAUDIA PLEITEZ MD, Ot R79. 89 OTHER SPECIFIED ABNORMAL FINDINGS OF BLO 03/29/2018 CLAUDIA PLEITEZ MD, Ot Z08 ENCNTR FOR FOLLOW-UP EXAM AFTER TRTMT FO 03/29/2018 CLAUDIA PLEITEZ MD, Ot Z79.899 OTHER RETIREMENT (CURRENT) DRUG THERAPY 03/29/2018 CLAUDIA PLEITEZ MD, Ot Z85.048 PRSNL HX OF MALIG NEOPLM OF RECTUM, RECT 03/29/2018 CLAUDIA PLEITEZ MD, Ot Z87.440 PERSONAL HISTORY OF URINARY (TRACT) INFE 03/29/2018 CLAUDIA PLEITEZ MD, Ot Z92. 21 PERSONAL HISTORY OF ANTINEOPLASTIC CHEMO 03/29/2018 CLAUDIA PLEITEZ MD, Ot Z92. 3 PERSONAL HISTORY OF IRRADIATION 04/15/2018 CLAUDIA PLEITEZ MD, Ot D50. 9 IRON DEFICIENCY ANEMIA, UNSPECIFIED 04/15/2018 CLAUDIA PLEITEZ MD, Ot F33. 9 MAJOR DEPRESSIVE DISORDER, RECURRENT, UN 04/15/2018 CLAUDIA PLEITEZ MD Ot G47. 00 INSOMNIA, UNSPECIFIED 04/15/2018 CLAUDIA PLEITEZ MD, Ot G62. 89 OTHER SPECIFIED POLYNEUROPATHIES 04/15/2018 CLAUDIA PLEITEZ MD, Ot K21. 9 GASTRO-ESOPHAGEAL REFLUX DISEASE WITHOUT 04/15/2018 CLAUDIA PLEITEZ MD, Ot K31. 84 GASTROPARESIS 04/15/2018 CLAUDIA PLEITEZ MD, Ot N39.490 OVERFLOW INCONTINENCE 04/15/2018 CLAUDIA PLEITEZ MD, Ot R79. 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 21 PERSONAL HISTORY OF ANTINEOPLASTIC CHEMO 04/15/2018 CLAUDIA PLEITEZ MD, Ot Z92. 3 PERSONAL HISTORY OF IRRADIATION 04/16/2018 Jay Aguilar W 569.0 ANAL AND RECTAL POLYP 04/16/2018 Jay Aguilar W 787.91 DIARRHEA 04/16/2018 Jay Aguilar W K62.1 RECTAL POLYP 04/16/2018 Jay Aguilar W R19.7 DIARRHEA, UNSPECIFIED 04/16/2018 Jay Aguilar W V10.91 PERSONAL HISTORY OF MALIGNANT NEUROENDOCRINE TUMOR 04/16/2018 Jay Aguilar Z85.040 PERSONAL HISTORY OF MALIGNANT CARCINOID TUMOR OF RECTUM 04/17/2018 CLAUDIA PLEITEZ MD, Ot D50. 9 IRON DEFICIENCY ANEMIA, UNSPECIFIED 04/17/2018 CLAUDIA PLEITEZ MD, Ot F33. 9 MAJOR DEPRESSIVE DISORDER, RECURRENT, UN 04/17/2018 CLAUDIA PLEITEZ MD, Ot G47. 00 INSOMNIA, UNSPECIFIED 04/17/2018 CLAUDIA PLEITEZ MD, Ot G62. 89 OTHER SPECIFIED POLYNEUROPATHIES 04/17/2018 CLAUDIA PLEITEZ MD, Ot K21. 9 GASTRO-ESOPHAGEAL REFLUX DISEASE WITHOUT 04/17/2018 CLAUDIA PLEITEZ MD, Ot K31. 84 GASTROPARESIS 04/17/2018 CLAUDIA PLEITEZ MD, Ot N39.490 OVERFLOW INCONTINENCE 04/17/2018 CLAUDIA PLEITEZ MD, Ot R79. 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 21 PERSONAL HISTORY OF ANTINEOPLASTIC CHEMO 04/17/2018 CLAUDIA PLEITEZ MD, Ot Z92. 3 PERSONAL HISTORY OF IRRADIATION 06/09/2018 LIZBETH SOLIS, SHANTE David Ot 154.1 MALIGNANT NEOPL RECTUM 06/09/2018 SHANTE NIEVES MD Ot 571.8 CHRONIC LIVER DIS NEC 06/09/2018 SHANTE NIEVES MD Ot 591 HYDRONEPHROSIS 06/09/2018 SANTOS SOLIS, ADOLPH Jon Ot 154.1 MALIGNANT NEOPL RECTUM 06/09/2018 SANTOS SOLIS, ADOLPH Jon Ot V72.63 PRE-PROCEDURAL LABORATORY EXAMINATION 06/09/2018 SANTOS SOLIS, ADOLPH Jon Ot V74.8 SCREEN-BACTERIAL DIS NEC 06/09/2018 TED PAP Ot 154.1 MALIGNANT NEOPL RECTUM 06/09/2018 TED PA DIRECTOR OF GRADUATE ADMISSIONS Ot 280.9 IRON DEFIC ANEMIA NOS 06/09/2018 TED PA DIRECTOR OF GRADUATE ADMISSIONS Ot 3 11 DEPRESSIVE DISORDER NEC 06/09/2018 TED PA DIRECTOR OF GRADUATE ADMISSIONS Ot 530.81 ESOPHAGEAL REFLUX 06/09/2018 TED PA DIRECTOR OF GRADUATE ADMISSIONS Ot 536.3 GASTROPARESIS 06/09/2018 TED PA DIRECTOR OF GRADUATE ADMISSIONS Ot 607.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, ORGANIC ORIGN 06/09/2018 TED PA DIRECTOR OF GRADUATE ADMISSIONS Ot V58.69 OTH MED,LT,CURRENT USE 06/09/2018 TED PA DIRECTOR OF GRADUATE ADMISSIONS Ot 154.1 MALIGNANT NEOPL RECTUM 06/09/2018 TED PAP Ot 280.9 IRON DEFIC ANEMIA NOS 06/09/2018 TED PA DIRECTOR OF GRADUATE ADMISSIONS Ot 3 11 DEPRESSIVE DISORDER NEC 06/09/2018 TED PA DIRECTOR OF GRADUATE ADMISSIONS Ot 530.81 ESOPHAGEAL REFLUX 06/09/2018 TED PAP Ot 536.3 GASTROPARESIS 06/09/2018 TED PA DIRECTOR OF GRADUATE ADMISSIONS Ot 607.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, ORGANIC ORIGN 06/09/2018 TED PAP Ot V58.69 OT MED,LT,CURRENT USE 06/09/2018 VIRAJ SOLIS, ROXI Oseguera Ot 154.1 MALIGNANT NEOPL RECTUM 06/09/2018 ROXI CALI MD, Ot 154.1 MALIGNANT NEOPL RECTUM 06/09/2018 ROXI CALI MD, Ot C20 MALIGNANT NEOPLASM OF RECTUM 06/09/2018 ROXI CALI MD, Ot C20 MALIGNANT NEOPLASM OF RECTUM 06/09/2018 CLAUDIA PLEITEZ MD, Ot K76. 0 FATTY (CHANGE OF) LIVER, NOT ELSEWHERE C 06/09/2018 CLAUDIA PLEITEZ MD, Ot R74. 8 ABNORMAL LEVELS OF OTHER SERUM ENZYMES 06/09/2018 CLAUDIA PLEITEZ MD, Ot Z85.048 PRSNL HX OF MALIG NEOPLM OF RECTUM, RECT 06/09/2018 CLAUDIA PLEITEZ MD, Ot Z90. 6 ACQUIRED ABSENCE OF OTHER PARTS OF URINA 06/09/2018 CLAUDIA PLEITEZ MD, Ot Z93. 8 OTHER ARTIFICIAL OPENING STATUS 06/09/2018 CLAUDIA PLEITEZ MD, Ot D50. 9 IRON DEFICIENCY ANEMIA, UNSPECIFIED 06/09/2018 CLAUDIA PLEITEZ MD, Ot F33. 9 MAJOR DEPRESSIVE DISORDER, RECURRENT, UN 06/09/2018 CLAUDIA PLEITEZ MD, Ot G47. 00 INSOMNIA, UNSPECIFIED 06/09/2018 CLAUDIA PLEITEZ MD, Ot G62. 89 OTHER SPECIFIED POLYNEUROPATHIES 06/09/2018 LCAUDIA PLEITEZ MD, Ot K21. 9 GASTRO-ESOPHAGEAL REFLUX DISEASE WITHOUT 06/09/2018 CLAUDIA PLEITEZ MD, Ot K31. 84 GASTROPARESIS 06/09/2018 CLAUDIA PLEITEZ MD, Ot N39.490 OVERFLOW INCONTINENCE 06/09/2018 CLAUDIA PLEITEZ MD, Ot R79. 89 OTHER SPECIFIED ABNORMAL FINDINGS OF BLO 06/09/2018 CLAUDIA PLEITEZ MD Ot Z08 ENCNTR FOR FOLLOW-UP EXAM AFTER TRTMT FO 06/09/2018 CLAUDIA PLEITEZ MD Ot Z79.899 OTHER RETIREMENT (CURRENT) DRUG THERAPY 06/09/2018 CLAUDIA PLEITEZ MD Ot Z85.048 PRSNL HX OF MALIG NEOPLM OF RECTUM, RECT 06/09/2018 CLAUDIA PLEITEZ MD Ot Z87.440 PERSONAL HISTORY OF URINARY (TRACT) INFE 06/09/2018 CLAUDIA PLEITEZ MD Ot Z92. 21 PERSONAL HISTORY OF ANTINEOPLASTIC CHEMO 06/09/2018 CLAUDIA PLEITEZ MD, Ot Z92. 3 PERSONAL HISTORY OF IRRADIATION 06/12/2018 ABRIL KEYS DO Ot A08.4 VIRAL INTESTINAL INFECTION, UNSPECIFIED 06/12/2018 LUDMILA DICKSON ABRIL Ot B96.1 KLEBSIELLA PNEUMONIAE THE CAUSE OF DI 06/12/2018 FRANK KEYS DOI Ot B96.89 OTH BACTERIAL AGENTS THE CAUSE OF DIS 06/12/2018 FRANK KEYS DOI Ot E87.6 HYPOKALEMIA 06/12/2018 FRANK KEYS DOI Ot F32.9 MAJOR DEPRESSIVE DISORDER, SINGLE EPISOD 06/12/2018 FRANK KEYS DOI Ot F41.9 ANXIETY DISORDER, UNSPECIFIED 06/12/2018 FRANK KEYS DOI Ot G89.29 OTHER CHRONIC PAIN 06/12/2018 LUDMILA DICKSON ABRIL Ot I10 ESSENTIAL (PRIMARY) HYPERTENSION 06/12/2018 FRANK KEYS DOI Ot N28.9 DISORDER OF KIDNEY AND URETER, UNSPECIFI 06/12/2018 FRANK KEYS DOI Ot N39.0 URINARY TRACT INFECTION, SITE NOT SPECIF 06/12/2018 FRANK KEYS DOI Ot R55 SYNCOPE AND COLLAPSE 06/12/2018 FRANK KEYS DOI Ot Z79.82 HEALTHCARE NETWORK CONSULTANT (CURRENT) USE OF ASPIRIN 06/12/2018 ABRIL KEYS DO Ot Z79.89 9 OTHER RETIREMENT (CURRENT) DRUG THERAPY 06/12/2018 ABRIL KEYS DO Ot Z85.04 8 PRSNL HX OF MALIG NEOPLM OF RECTUM, RECT 06/12/2018 ABRIL KEYS DO Ot Z88.5 ALLERGY STATUS TO NARCOTIC AGENT STATUS 06/12/2018 ABRIL KEYS DO Ot Z90.49 ACQUIRED ABSENCE OF OTHER SPECIFIED PART 06/12/2018 ABRIL KEYS DO Ot Z90.6 ACQUIRED ABSENCE OF OTHER PARTS OF URINA 06/12/2018 ABRIL KEYS DO, Ot Z92.21 PERSONAL HISTORY OF ANTINEOPLASTIC CHEMO 06/12/2018 ABRIL KEYS DO, Ot Z92.3 PERSONAL HISTORY OF IRRADIATION 02/21/2019 CLAUDIA PLEITEZ MD, Ot D50. 9 IRON DEFICIENCY ANEMIA, UNSPECIFIED 02/21/2019 CLAUDIA PLEITEZ MD, Ot F33. 9 MAJOR DEPRESSIVE DISORDER, RECURRENT, UN 02/21/2019 CLAUDIA PLEITEZ MD, Ot G47. 00 INSOMNIA, UNSPECIFIED 02/21/2019 CLAUDIA PLEITEZ MD, Ot G62. 89 OTHER SPECIFIED POLYNEUROPATHIES 02/21/2019 CLAUDIA PLEITEZ MD, Ot K21. 9 GASTRO-ESOPHAGEAL REFLUX DISEASE WITHOUT 02/21/2019 CLAUDIA PLEITEZ MD, Ot K31. 84 GASTROPARESIS 02/21/2019 CLAUDIA PLEITEZ MD, Ot N39.490 OVERFLOW INCONTINENCE 02/21/2019 CLAUDIA PLEITEZ MD, Ot R79. 89 OTHER SPECIFIED ABNORMAL FINDINGS OF BLO 02/21/2019 CLAUDIA PLEITEZ MD, Ot Z08 ENCNTR FOR FOLLOW-UP EXAM AFTER TRTMT FO 02/21/2019 CLAUDIA PLEITEZ MD, Ot 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 02/21/2019 CLAUDIA PLEITEZ MD, Ot Z85.048 PRSNL HX OF MALIG NEOPLM OF RECTUM, RECT 02/21/2019 CLAUDIA PLEITEZ MD, Ot Z87.440 PERSONAL HISTORY OF URINARY (TRACT) INFE 02/21/2019 CLAUDIA PLEITEZ MD, Ot Z92. 21 PERSONAL HISTORY OF ANTINEOPLASTIC CHEMO 02/21/2019 CLAUDIA PLEITEZ MD, Ot Z92. 3 PERSONAL HISTORY OF IRRADIATION 02/21/2019 ROXI CALI MD Ot 154.1 MALIGNANT NEOPL RECTUM 02/21/2019 ROXI CALI MD, Ot 154.1 MALIGNANT NEOPL RECTUM 02/21/2019 ROXI CALI MD Ot C20 MALIGNANT NEOPLASM OF RECTUM 02/21/2019 ROXI CALI MD, Ot C20 MALIGNANT NEOPLASM OF RECTUM 02/21/2019 CLAUDIA PLEITEZ MD, Ot K76. 0 FATTY (CHANGE OF) LIVER, NOT ELSEWHERE C 02/21/2019 CLAUDIA PLEITEZ MD, Ot R74. 8 ABNORMAL LEVELS OF OTHER SERUM ENZYMES 02/21/2019 CLAUDIA PLEITEZ MD, Ot Z85.048 PRSNL HX OF MALIG NEOPLM OF RECTUM, RECT 02/21/2019 CLAUDIA PLEITEZ MD, Ot Z90. 6 ACQUIRED ABSENCE OF OTHER PARTS OF URINA 02/21/2019 CLAUDIA PLEITEZ MD, Ot Z93. 8 OTHER ARTIFICIAL OPENING STATUS 02/27/2019 ROXI CALI MD Ot 154.1 MALIGNANT NEOPL RECTUM 02/27/2019 ROXI CALI MD Ot 154.1 MALIGNANT NEOPL RECTUM 02/27/2019 ROXI CALI MD Ot C20 MALIGNANT NEOPLASM OF RECTUM 02/27/2019 ROXI CALI MD Ot C20 MALIGNANT NEOPLASM OF RECTUM 02/27/2019 CLAUDIA PLEITEZ MD, Ot K76. 0 FATTY (CHANGE OF) LIVER, NOT ELSEWHERE C 02/27/2019 CLAUDIA PLEITEZ MD, Ot R74. 8 ABNORMAL LEVELS OF OTHER SERUM ENZYMES 02/27/2019 CLAUDIA PLEITEZ MD, Ot Z85.048 PRSNL HX OF MALIG NEOPLM OF RECTUM, RECT 02/27/2019 CLAUDIA PLEITEZ MD, Ot Z90. 6 ACQUIRED ABSENCE OF OTHER PARTS OF URINA 02/27/2019 CLAUDIA PLEITEZ MD, Ot Z93. 8 OTHER ARTIFICIAL OPENING STATUS 03/07/2019 CLAUDIA PLEITEZ MD, Ot D50. 9 IRON DEFICIENCY ANEMIA, UNSPECIFIED 03/07/2019 CLAUDIA PLEITEZ MD, Ot F33. 9 MAJOR DEPRESSIVE DISORDER, RECURRENT, UN 03/07/2019 CLAUDIA PLEITEZ MD, Ot G47. 00 INSOMNIA, UNSPECIFIED 03/07/2019 CLAUDIA PLEITEZ MD, Ot G62. 89 OTHER SPECIFIED POLYNEUROPATHIES 03/07/2019 CLAUDIA PLEITEZ MD, Ot K21. 9 GASTRO-ESOPHAGEAL REFLUX DISEASE WITHOUT 03/07/2019 CLAUDIA PLEITEZ MD, Ot K31. 84 GASTROPARESIS 03/07/2019 CLAUDIA PLEITEZ MD, Ot N39.490 OVERFLOW INCONTINENCE 03/07/2019 CLAUDIA PLEITEZ MD, Ot R79. 89 OTHER SPECIFIED ABNORMAL FINDINGS OF BLO 03/07/2019 CLAUDIA PLEITEZ MD, Ot Z08 ENCNTR FOR FOLLOW-UP EXAM AFTER TRTMT FO 03/07/2019 CLAUDIA PLEITEZ MD, Ot 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 03/07/2019 CLAUDIA PLEITEZ MD, Ot Z85.048 PRSNL HX OF MALIG NEOPLM OF RECTUM, RECT 03/07/2019 CLAUDIA PLEITEZ MD, Ot Z87.440 PERSONAL HISTORY OF URINARY (TRACT) INFE 03/07/2019 CLAUDIA PLEITEZ MD, Ot Z92. 21 PERSONAL HISTORY OF ANTINEOPLASTIC CHEMO 03/07/2019 CLAUDIA PLEITEZ MD, Ot Z92. 3 PERSONAL HISTORY OF IRRADIATION 03/07/2019 CLAUDIA PLEITEZ MD, Ot C21. 0 MALIGNANT NEOPLASM OF ANUS, UNSPECIFIED 03/08/2019 CLAUDIA PLEITEZ MD, Ot C21. 0 MALIGNANT NEOPLASM OF ANUS, UNSPECIFIED 03/08/2019 CLAUDIA PLEITEZ MD, Ot D50. 9 IRON DEFICIENCY ANEMIA, UNSPECIFIED 03/08/2019 CLAUDIA PLEITEZ MD, Ot F33. 9 MAJOR DEPRESSIVE DISORDER, RECURRENT, UN 03/08/2019 CLAUDIA PLEITEZ MD, Ot G47. 00 INSOMNIA, UNSPECIFIED 03/08/2019 CLAUDIA PLEITEZ MD Ot G62. 89 OTHER SPECIFIED POLYNEUROPATHIES 03/08/2019 CLAUDIA PLEITEZ MD, Ot K21. 9 GASTRO-ESOPHAGEAL REFLUX DISEASE WITHOUT 03/08/2019 CLAUDIA PLEITEZ MD, Ot K31. 84 GASTROPARESIS 03/08/2019 CLAUDIA PLEITEZ MD, Ot N39.490 OVERFLOW INCONTINENCE 03/08/2019 CLAUDIA PLEITEZ MD, Ot R79. 89 OTHER SPECIFIED ABNORMAL FINDINGS OF BLO 03/08/2019 CLAUDIA PLEITEZ MD Ot Z08 ENCNTR FOR FOLLOW-UP EXAM AFTER TRTMT FO 03/08/2019 CLAUDIA PLEITEZ MD, Ot Z79.899 OTHER RETIREMENT (CURRENT) DRUG THERAPY 03/08/2019 CLAUDIA PLEITEZ MD, Ot Z85.048 PRSNL HX OF MALIG NEOPLM OF RECTUM, RECT 03/08/2019 CLAUDIA PLEITEZ MD, Ot Z87.440 PERSONAL HISTORY OF URINARY (TRACT) INFE 03/08/2019 CLAUDIA PLEITEZ MD, Ot Z92. 21 PERSONAL HISTORY OF ANTINEOPLASTIC CHEMO 03/08/2019 CLAUDIA PLEITEZ MD, Ot Z92. 3 PERSONAL HISTORY OF IRRADIATION 04/03/2019 CLAUDIA PLEITEZ MD, Ot C21. 0 MALIGNANT NEOPLASM OF ANUS, UNSPECIFIED 04/03/2019 CLAUDIA PLEITEZ MD, Ot D50. 9 IRON DEFICIENCY ANEMIA, UNSPECIFIED 04/03/2019 CLAUDIA PLEITEZ MD, Ot F33. 9 MAJOR DEPRESSIVE DISORDER, RECURRENT, UN 04/03/2019 CLAUDIA PLEITEZ MD, Ot G47. 00 INSOMNIA, UNSPECIFIED 04/03/2019 CLAUDIA PLEITEZ MD, Ot G62. 89 OTHER SPECIFIED POLYNEUROPATHIES 04/03/2019 CLAUDIA PLEITEZ MD, Ot K21. 9 GASTRO-ESOPHAGEAL REFLUX DISEASE WITHOUT 04/03/2019 CLAUDIA PLEITEZ MD, Ot K31. 84 GASTROPARESIS 04/03/2019 CLAUDIA PLEITEZ MD, Ot N39.490 OVERFLOW INCONTINENCE 04/03/2019 CLAUDIA PLEITEZ MD, Ot R79. 89 OTHER SPECIFIED ABNORMAL FINDINGS OF BLO 04/03/2019 CLAUDIA PLEITEZ MD, Ot Z08 ENCNTR FOR FOLLOW-UP EXAM AFTER TRTMT FO 04/03/2019 CLAUDIA PLEITEZ MD, Ot 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 04/03/2019 CLAUDIA PLEITEZ MD, Ot Z85.048 PRSNL HX OF MALIG NEOPLM OF RECTUM, RECT 04/03/2019 CLAUDIA PLEITEZ MD, Ot Z87.440 PERSONAL HISTORY OF URINARY (TRACT) INFE 04/03/2019 CLAUDIA PLEITEZ MD, Ot Z92. 21 PERSONAL HISTORY OF ANTINEOPLASTIC CHEMO 04/03/2019 CLAUDIA PLEITEZ MD, Ot Z92. 3 PERSONAL HISTORY OF IRRADIATION 07/01/2019 ROXI CALI MD Ot C20 MALIGNANT NEOPLASM OF RECTUM 07/01/2019 ROXI CALI MD, Ot C20 MALIGNANT NEOPLASM OF RECTUM 07/01/2019 CLAUDIA PLEITEZ MD, Ot K76. 0 FATTY (CHANGE OF) LIVER, NOT ELSEWHERE C 07/01/2019 CLAUDIA PLEITEZ MD, Ot R74. 8 ABNORMAL LEVELS OF OTHER SERUM ENZYMES 07/01/2019 CLAUDIA PLEITEZ MD, Ot Z85.048 PRSNL HX OF MALIG NEOPLM OF RECTUM, RECT 07/01/2019 CLAUDIA PLEITEZ MD, Ot Z90. 6 ACQUIRED ABSENCE OF OTHER PARTS OF URINA 07/01/2019 CLAUDIA PLEITEZ MD, Ot Z93. 8 OTHER ARTIFICIAL OPENING STATUS 07/01/2019 CLAUDIA PLEITEZ MD, Ot C21. 0 MALIGNANT NEOPLASM OF ANUS, UNSPECIFIED 07/01/2019 CLAUDIA PLEITEZ MD, Ot D50. 9 IRON DEFICIENCY ANEMIA, UNSPECIFIED 07/01/2019 CLAUDIA PLEITEZ MD, Ot F33. 9 MAJOR DEPRESSIVE DISORDER, RECURRENT, UN 07/01/2019 CLAUDIA PLEITEZ MD, Ot G47. 00 INSOMNIA, UNSPECIFIED 07/01/2019 CLAUDIA PLEITEZ MD, Ot G62. 89 OTHER SPECIFIED POLYNEUROPATHIES 07/01/2019 CLAUDIA PLEITEZ MD, Ot K21. 9 GASTRO-ESOPHAGEAL REFLUX DISEASE WITHOUT 07/01/2019 CLAUDIA PLEITEZ MD, Ot K31. 84 GASTROPARESIS 07/01/2019 CLAUDIA PLEITEZ MD, Ot N39.490 OVERFLOW INCONTINENCE 07/01/2019 CLAUDIA PLEITEZ MD, Ot R79. 89 OTHER SPECIFIED ABNORMAL FINDINGS OF BLO 07/01/2019 CLAUDIA PLEITEZ MD, Ot Z08 ENCNTR FOR FOLLOW-UP EXAM AFTER TRTMT FO 07/01/2019 CLAUDIA PLEITEZ MD, Ot Z79.899 OTHER RETIREMENT (CURRENT) DRUG THERAPY 07/01/2019 CLAUDIA PLEITEZ MD, Ot Z85.048 PRSNL HX OF MALIG NEOPLM OF RECTUM, RECT 07/01/2019 CLAUDIA PLEITEZ MD, Ot Z87.440 PERSONAL HISTORY OF URINARY (TRACT) INFE 07/01/2019 CLAUDIA PLEITEZ MD, Ot Z92. 21 PERSONAL HISTORY OF ANTINEOPLASTIC CHEMO 07/01/2019 CLAUDIA PLEITEZ MD, Ot Z92. 3 PERSONAL HISTORY OF IRRADIATION 08/15/2019 ROXI CALI MD, Ot C20 MALIGNANT NEOPLASM OF RECTUM 08/15/2019 ROXI CALI MD, Ot C20 MALIGNANT NEOPLASM OF RECTUM 08/15/2019 CLAUDIA PLEITEZ MD, Ot K76. 0 FATTY (CHANGE OF) LIVER, NOT ELSEWHERE C 08/15/2019 CLAUDIA PLEITEZ MD, Ot R74. 8 ABNORMAL LEVELS OF OTHER SERUM ENZYMES 08/15/2019 CLAUDIA PLEITEZ MD, Ot Z85.048 PRSNL HX OF MALIG NEOPLM OF RECTUM, RECT 08/15/2019 CLAUDIA PLEITEZ MD, Ot Z90. 6 ACQUIRED ABSENCE OF OTHER PARTS OF URINA 08/15/2019 CLAUDIA PLEITEZ MD, Ot Z93. 8 OTHER ARTIFICIAL OPENING STATUS 08/15/2019 CLAUDIA PLEITEZ MD, Ot C21. 0 MALIGNANT NEOPLASM OF ANUS, UNSPECIFIED 08/15/2019 CLAUDIA PLEITEZ MD, Ot D50. 9 IRON DEFICIENCY ANEMIA, UNSPECIFIED 08/15/2019 CLAUDIA PLEITEZ MD, Ot F33. 9 MAJOR DEPRESSIVE DISORDER, RECURRENT, UN 08/15/2019 CLAUDIA PLEITEZ MD, Ot G47. 00 INSOMNIA, UNSPECIFIED 08/15/2019 CLAUDIA PLEITEZ MD, Ot G62. 89 OTHER SPECIFIED POLYNEUROPATHIES 08/15/2019 CLAUDIA PLEITEZ MD, Ot K21. 9 GASTRO-ESOPHAGEAL REFLUX DISEASE WITHOUT 08/15/2019 CLAUDIA PLEITEZ MD, Ot K31. 84 GASTROPARESIS 08/15/2019 CLAUDIA PLEITEZ MD, Ot N39.490 OVERFLOW INCONTINENCE 08/15/2019 CLAUDIA PLEITEZ MD, Ot R79. 89 OTHER SPECIFIED ABNORMAL FINDINGS OF BLO 08/15/2019 CLAUDIA PLEITEZ MD, Ot Z08 ENCNTR FOR FOLLOW-UP EXAM AFTER TRTMT FO 08/15/2019 CLAUDIA PLEITEZ MD, Ot 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 08/15/2019 CLAUDIA PLEITEZ MD, Ot Z85.048 PRSNL HX OF MALIG NEOPLM OF RECTUM, RECT 08/15/2019 CLAUDIA PLEITEZ MD, Ot Z87.440 PERSONAL HISTORY OF URINARY (TRACT) INFE 08/15/2019 CLAUDIA PLEITEZ MD Ot Z92. 21 PERSONAL HISTORY OF ANTINEOPLASTIC CHEMO 08/15/2019 CLAUDIA PLEITEZ MD, Ot Z92. 3 PERSONAL HISTORY OF IRRADIATION 08/15/2019 STEVEN MCCANN APRN Ot F11.20 OPIOID DEPENDENCE, UNCOMPLICATED 08/15/2019 STEVEN MCCANN APRN Ot F32 .9 MAJOR DEPRESSIVE DISORDER, SINGLE EPISOD 08/15/2019 STEVEN MCCANN APRN Ot F41 .9 ANXIETY DISORDER, UNSPECIFIED 08/15/2019 STEVEN MCCANN APRN Ot I10 ESSENTIAL (PRIMARY) HYPERTENSION 08/15/2019 STEVEN MCCANN APRN Ot M54 .5 LOW BACK PAIN 08/15/2019 STEVEN MCCANN [employer] Ot M54 .9 DORSALGIA, UNSPECIFIED 08/15/2019 STEVEN MCCANN [employer] Ot N39 .0 URINARY TRACT INFECTION, SITE NOT SPECIF 08/15/2019 STEVEN MCCANN [employer] WORK[employer] Ot Z79.82 RETIREMENT (CURRENT) USE OF ASPIRIN 08/15/2019 STEVEN MCCANN APRN Ot Z85.048 PRSNL HX OF MALIG NEOPLM OF RECTUM, RECT 08/15/2019 STEVEN MCCANN APRN Ot Z88 .5 ALLERGY STATUS TO NARCOTIC AGENT STATUS 08/15/2019 STEVEN MCCANN [employer] Ot Z93 .2 ILEOSTOMY STATUS 08/15/2019 STEVEN MCCANN [employer] WORKER Ot Z93 .6 OTHER ARTIFICIAL OPENINGS OF URINARY TRA 08/15/2019 STEVEN MCCANN [employer] WORKER Ot Z96 .0 PRESENCE OF UROGENITAL IMPLANTS 08/19/2019 STEVEN MCCANN APRN Ot F11.20 OPIOID DEPENDENCE, UNCOMPLICATED 08/19/2019 STEVEN MCCANN APRN Ot F32 .9 MAJOR DEPRESSIVE DISORDER, SINGLE EPISOD 08/19/2019 STEVEN MCCANN APRN Ot F41 .9 ANXIETY DISORDER, UNSPECIFIED 08/19/2019 STEVEN MCCANN [employer] Ot I10 ESSENTIAL (PRIMARY) HYPERTENSION 08/19/2019 STEVEN MCCANN APRN Ot M54 .5 LOW BACK PAIN 08/19/2019 STEVEN MCCANN APRN Ot M54 .9 DORSALGIA, UNSPECIFIED 08/19/2019 STEVEN MCCANN APRN Ot N39 .0 URINARY TRACT INFECTION, SITE NOT SPECIF 08/19/2019 STEVEN MCCANN APRN Ot Z79.82 HEALTHCARE NETWORK CONSULTANT (CURRENT) USE OF ASPIRIN 08/19/2019 STEVEN MCCANN APRN Ot Z85.048 PRSNL HX OF MALIG NEOPLM OF RECTUM, RECT 08/19/2019 STEVEN MCCANN APRN Ot Z88 .5 ALLERGY STATUS TO NARCOTIC AGENT STATUS 08/19/2019 STEVEN MCCANN [employer] Ot Z93 .2 ILEOSTOMY STATUS 08/19/2019 STEVEN MCCANN [employer] WORKER Ot Z93 .6 OTHER ARTIFICIAL OPENINGS OF URINARY TRA 08/19/2019 RAMY, STEVEN Barger [employer] WORKER Ot Z96 .0 PRESENCE OF UROGENITAL IMPLANTS 08/26/2019 VIRAJ SOLIS, ROXI Oseguera Ot C20 MALIGNANT NEOPLASM OF RECTUM 08/26/2019 ROXI CALI MD Ot C20 MALIGNANT NEOPLASM OF RECTUM 08/26/2019 CLAUDIA PLEITEZ MD, Ot K76. 0 FATTY (CHANGE OF) LIVER, NOT ELSEWHERE C 08/26/2019 CLAUDIA PLEITEZ MD, Ot R74. 8 ABNORMAL LEVELS OF OTHER SERUM ENZYMES 08/26/2019 CLAUDIA PLEITEZ MD, Ot Z85.048 PRSNL HX OF MALIG NEOPLM OF RECTUM, RECT 08/26/2019 CLAUDIA PLEITEZ MD, Ot Z90. 6 ACQUIRED ABSENCE OF OTHER PARTS OF URINA 08/26/2019 CLAUDIA PLEITEZ MD, Ot Z93. 8 OTHER ARTIFICIAL OPENING STATUS 08/26/2019 CLAUDIA PLEITEZ MD, Ot C21. 0 MALIGNANT NEOPLASM OF ANUS, UNSPECIFIED 08/26/2019 CLAUDIA PLEITEZ MD, Ot D50. 9 IRON DEFICIENCY ANEMIA, UNSPECIFIED 08/26/2019 CLAUDIA PLEITEZ MD, Ot F33. 9 MAJOR DEPRESSIVE DISORDER, RECURRENT, UN 08/26/2019 CLAUDIA PLEITEZ MD, Ot G47. 00 INSOMNIA, UNSPECIFIED 08/26/2019 CLAUDIA PLEITEZ MD, Ot G62. 89 OTHER SPECIFIED POLYNEUROPATHIES 08/26/2019 CLAUDIA PLEITEZ MD, Ot K21. 9 GASTRO-ESOPHAGEAL REFLUX DISEASE WITHOUT 08/26/2019 CLAUDIA PLEITEZ MD, Ot K31. 84 GASTROPARESIS 08/26/2019 CLAUDIA PLEITEZ MD, Ot N39.490 OVERFLOW INCONTINENCE 08/26/2019 CLAUDIA PLEITEZ MD, Ot R79. 89 OTHER SPECIFIED ABNORMAL FINDINGS OF BLO 08/26/2019 CLAUDIA PLEITEZ MD, Ot Z08 ENCNTR FOR FOLLOW-UP EXAM AFTER TRTMT FO 08/26/2019 CLAUDIA PLEITEZ MD, Ot Z79.899 OTHER RETIREMENT (CURRENT) DRUG THERAPY 08/26/2019 CLAUDIA PLEITEZ MD, Ot Z85.048 PRSNL HX OF MALIG NEOPLM OF RECTUM, RECT 08/26/2019 CLAUDIA PLEITEZ MD, Ot Z87.440 PERSONAL HISTORY OF URINARY (TRACT) INFE 08/26/2019 CLAUDIA PLEITEZ MD, Ot Z92. 21 PERSONAL HISTORY OF ANTINEOPLASTIC CHEMO 08/26/2019 CLAUDIA PLEITEZ MD, Ot Z92. 3 PERSONAL HISTORY OF IRRADIATION 08/27/2019 CLAUDIA PLEITEZ MD, Ot D50. 9 IRON DEFICIENCY ANEMIA, UNSPECIFIED 08/27/2019 CLAUDIA PLEITEZ MD, Ot F33. 9 MAJOR DEPRESSIVE DISORDER, RECURRENT, UN 08/27/2019 CLAUDIA PLEITEZ MD, Ot G47. 00 INSOMNIA, UNSPECIFIED 08/27/2019 CLAUDIA PLEITEZ MD, Ot G62. 89 OTHER SPECIFIED POLYNEUROPATHIES 08/27/2019 CLAUDIA PLEITEZ MD, Ot K21. 9 GASTRO-ESOPHAGEAL REFLUX DISEASE WITHOUT 08/27/2019 CLAUDIA PLEITEZ MD, Ot K31. 84 GASTROPARESIS 08/27/2019 CLAUDIA PLEITEZ MD, Ot N39.490 OVERFLOW INCONTINENCE 08/27/2019 CLAUDIA PLEITEZ MD, Ot R79. 89 OTHER SPECIFIED ABNORMAL FINDINGS OF BLO 08/27/2019 CLAUDIA PLEITEZ MD, Ot Z08 ENCNTR FOR FOLLOW-UP EXAM AFTER TRTMT FO 08/27/2019 CLAUDIA PLEITEZ MD, Ot 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 08/27/2019 CLAUDIA PLEITEZ MD, Ot Z85.048 PRSNL HX OF MALIG NEOPLM OF RECTUM, RECT 08/27/2019 CLAUDIA PLETIEZ MD, Ot Z87.440 PERSONAL HISTORY OF URINARY (TRACT) INFE 08/27/2019 CLAUDIA PLEITEZ MD, Ot Z92. 21 PERSONAL HISTORY OF ANTINEOPLASTIC CHEMO 08/27/2019 CLAUDIA PLEITEZ MD, Ot Z92. 3 PERSONAL HISTORY OF IRRADIATION 09/23/2019 ROXI CALI MD Ot C20 MALIGNANT NEOPLASM OF RECTUM 09/23/2019 ROXI CALI MD, Ot C20 MALIGNANT NEOPLASM OF RECTUM 09/23/2019 CLAUDIA PLEITEZ MD, Ot K76. 0 FATTY (CHANGE OF) LIVER, NOT ELSEWHERE C 09/23/2019 CLAUDIA PLEITEZ MD, Ot R74. 8 ABNORMAL LEVELS OF OTHER SERUM ENZYMES 09/23/2019 CLAUDIA PLEITEZ MD, Ot Z85.048 PRSNL HX OF MALIG NEOPLM OF RECTUM, RECT 09/23/2019 CLAUDIA PLEITEZ MD, Ot Z90. 6 ACQUIRED ABSENCE OF OTHER PARTS OF URINA 09/23/2019 CLAUDIA PLEITEZ MD, Ot Z93. 8 OTHER ARTIFICIAL OPENING STATUS 09/23/2019 CLAUDIA PLEITEZ MD, Ot C21. 0 MALIGNANT NEOPLASM OF ANUS, UNSPECIFIED 09/23/2019 CLAUDIA PLEITEZ MD, Ot D50. 9 IRON DEFICIENCY ANEMIA, UNSPECIFIED 09/23/2019 CLAUDIA PLEITEZ MD, Ot F33. 9 MAJOR DEPRESSIVE DISORDER, RECURRENT, UN 09/23/2019 CLAUDIA PLEITEZ MD, Ot G47. 00 INSOMNIA, UNSPECIFIED 09/23/2019 CLAUDIA PLEITEZ MD, Ot G62. 89 OTHER SPECIFIED POLYNEUROPATHIES 09/23/2019 CLAUDIA PLEITEZ MD, Ot K21. 9 GASTRO-ESOPHAGEAL REFLUX DISEASE WITHOUT 09/23/2019 CLAUDIA PLEITEZ MD, Ot K31. 84 GASTROPARESIS 09/23/2019 CLAUDIA PLEITEZ MD, Ot N39.490 OVERFLOW INCONTINENCE 09/23/2019 CLAUDIA PLEITEZ MD, Ot R79. 89 OTHER SPECIFIED ABNORMAL FINDINGS OF BLO 09/23/2019 CLAUDIA PLEITEZ MD, Ot Z08 ENCNTR FOR FOLLOW-UP EXAM AFTER TRTMT FO 09/23/2019 CLAUDIA PLEITEZ MD, Ot Z79.899 OTHER RETIREMENT (CURRENT) DRUG THERAPY 09/23/2019 CLAUDIA PLEITEZ MD, Ot Z85.048 PRSNL HX OF MALIG NEOPLM OF RECTUM, RECT 09/23/2019 CLAUDIA PLEITEZ MD, Ot Z87.440 PERSONAL HISTORY OF URINARY (TRACT) INFE 09/23/2019 CLAUDIA PLEITEZ MD, Ot Z92. 21 PERSONAL HISTORY OF ANTINEOPLASTIC CHEMO 09/23/2019 CLAUDIA PLEITEZ MD, Ot Z92. 3 PERSONAL HISTORY OF IRRADIATION 09/23/2019 CLAUDIA PLEITEZ MD, Ot D50. 9 IRON DEFICIENCY ANEMIA, UNSPECIFIED 09/23/2019 CLAUDIA PLEITEZ MD, Ot F33. 9 MAJOR DEPRESSIVE DISORDER, RECURRENT, UN 09/23/2019 CLAUDIA PLEITEZ MD, Ot G47. 00 INSOMNIA, UNSPECIFIED 09/23/2019 CLAUDIA PLEITEZ MD, Ot G62. 89 OTHER SPECIFIED POLYNEUROPATHIES 09/23/2019 CLAUDIA PLEITEZ MD, Ot K21. 9 GASTRO-ESOPHAGEAL REFLUX DISEASE WITHOUT 09/23/2019 CLAUDIA PLEITEZ MD, Ot K31. 84 GASTROPARESIS 09/23/2019 CLAUDIA PLEITEZ MD, Ot N39.490 OVERFLOW INCONTINENCE 09/23/2019 CLAUDIA PLEITEZ MD Ot R79. 89 OTHER SPECIFIED ABNORMAL FINDINGS OF BLO 09/23/2019 CLAUDIA PLEITEZ MD, Ot Z08 ENCNTR FOR FOLLOW-UP EXAM AFTER TRTMT FO 09/23/2019 CLAUDIA PLEITEZ MD, Ot 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 09/23/2019 CLAUDIA PLEITEZ MD, Ot Z85.048 PRSNL HX OF MALIG NEOPLM OF RECTUM, RECT 09/23/2019 CLAUDIA PLEITEZ MD, Ot Z87.440 PERSONAL HISTORY OF URINARY (TRACT) INFE 09/23/2019 CLAUDIA PLEITEZ MD, Ot Z92. 21 PERSONAL HISTORY OF ANTINEOPLASTIC CHEMO 09/23/2019 CLAUDIA PLEITEZ MD, Ot Z92. 3 PERSONAL HISTORY OF IRRADIATION 09/25/2019 CLAUDIA PLEITEZ MD, Ot D50. 9 IRON DEFICIENCY ANEMIA, UNSPECIFIED 09/25/2019 CLAUDIA PLEITEZ MD, Ot F33. 9 MAJOR DEPRESSIVE DISORDER, RECURRENT, UN 09/25/2019 CLAUDIA PLEITEZ MD, Ot G47. 00 INSOMNIA, UNSPECIFIED 09/25/2019 CLAUDIA PLEITEZ MD Ot G62. 89 OTHER SPECIFIED POLYNEUROPATHIES 09/25/2019 CLAUDIA PLEITEZ MD, Ot K21. 9 GASTRO-ESOPHAGEAL REFLUX DISEASE WITHOUT 09/25/2019 CLAUDIA PLEITEZ MD Ot K31. 84 GASTROPARESIS 09/25/2019 CLAUDIA PLEITEZ MD Ot N39.490 OVERFLOW INCONTINENCE 09/25/2019 CLAUDIA PLEITEZ MD Ot R79. 89 OTHER SPECIFIED ABNORMAL FINDINGS OF BLO 09/25/2019 CLAUDIA PLEITEZ MD, Ot Z08 ENCNTR FOR FOLLOW-UP EXAM AFTER TRTMT FO 09/25/2019 CLAUDIA PLEITEZ MD, Ot 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 09/25/2019 CLAUDIA PLEITEZ MD, Ot Z85.048 PRSNL HX OF MALIG NEOPLM OF RECTUM, RECT 09/25/2019 LCAUDIA PLEITEZ MD Ot Z87.440 PERSONAL HISTORY OF URINARY (TRACT) INFE 09/25/2019 CLAUDIA PLEITEZ MD Ot Z92. 21 PERSONAL HISTORY OF ANTINEOPLASTIC CHEMO 09/25/2019 MAIK SOLIS CLAUDIA Ot Z92. 3 PERSONAL HISTORY OF IRRADIATION 10/04/2019 STEVEN MCCANN APRN Ot F11.20 OPIOID DEPENDENCE, UNCOMPLICATED 10/04/2019 STEVEN MCCANN APRN Ot F32 .9 MAJOR DEPRESSIVE DISORDER, SINGLE EPISOD 10/04/2019 STEVEN MCCANN APRN Ot F41 .9 ANXIETY DISORDER, UNSPECIFIED 10/04/2019 STEVEN MCCANN APRN Ot I10 ESSENTIAL (PRIMARY) HYPERTENSION 10/04/2019 STEVEN MCCANN APRN Ot M54 .5 LOW BACK PAIN 10/04/2019 STEVEN MCCANN APRN Ot M54 .9 DORSALGIA, UNSPECIFIED 10/04/2019 STEVEN MCCANN APRN Ot N39 .0 URINARY TRACT INFECTION, SITE NOT SPECIF 10/04/2019 STEVEN MCCANN APRN Ot Z79.82 RETIREMENT (CURRENT) USE OF ASPIRIN 10/04/2019 STEVEN MCCANN APRN Ot Z85.048 PRSNL HX OF MALIG NEOPLM OF RECTUM, RECT 10/04/2019 STEVEN MCCANN APRN Ot Z88 .5 ALLERGY STATUS TO NARCOTIC AGENT STATUS 10/04/2019 STEVEN MCCANN APRN Ot Z93 .2 ILEOSTOMY STATUS 10/04/2019 STEVEN MCCANN APRN Ot Z93 .6 OTHER ARTIFICIAL OPENINGS OF URINARY TRA 10/04/2019 STEVEN MCCANN APRN Ot Z96 .0 PRESENCE OF UROGENITAL IMPLANTS Procedures Code [place] [address] ROUT INE VENIPUNCTURE 08/10/2012 22282 HEMOCCULT 08/10/2012 28099 HEMOCCULT 08/10/2012 18826 CBC 08/10/2012 49842 CMP 08/10/2012 70160 LIPI D PANEL 08/10/20123469424 GF R CALC (RESULT ONLY) 08/10/2012 85990 HEMO GLOBIN (IN-HOUSE) 08/27/2012 45.42 08/29/2012 48.24 08/29/2012 Medical O [facility] 10/04/2012 46.01 12/06/2012 47.19 12/06/2012 48.63 12/06/2012 86.07 12/06/2012 57.32 12/13/2012 44817 UA W / CULTURE IF INDICATED 01/01/2013 59581 URIN E DRUG SCREEN (IN-HOUSE) 01/01/[address] A BDOMEN & PELVIS W/ & W/O CONTRAST 01/02/2013 26721 ROUT INE VENIPUNCTURE 01/02/2013 71012 CULT URE URINE 01/02/2013 11053 CMP 01/03/2013 [id number] GF R CALC (RESULT ONLY) 01/03/2013 41068 CBC 01/03/2013 45.92 SM B OWEL-RECT STUMP ANAS 04/18/2013 46.51 SM B OWEL STOMA CLOSURE 04/18/2013 45.16 ESOP HAGOGASTRODUODENOSCOPY [EGD] W/CLOSE 07/19/2013 45.23 COLO NOSCOPY 10/18/2013 Physical P hysical Therapy, [facility] 05/21/2014 GENERAL S KASSANDRA, RICH 08/01/2014 Results Test Result Range Complete blood count (CBC) with automate d white blood cell (WBC) differential - 02/28/16 02:10 Blood leukocytes automated count (number/volume) 7.9 10*3/uL 4.3-11.0 Blood erythrocytes automated count (number/volume) 5.58 10*6/uL 4.35-5.85 Venous blood hemoglobin measurement (mass/volume) 15.1 g/dL 13.3-17.7 Blood hematocrit (volume fraction) 45 % 40-54 Automated erythrocyte mean corpuscular volume 81 [ foz_us] 80-99 Automated erythrocyte mean corpuscular h emoglobin (mass per erythrocyte) 27 pg 25-34 Automated erythrocyte mean corpuscular h emoglobin concentration measurement (mass/volume) 34 g/dL 32-36 Automated erythrocyte distribution width ratio 15. 3 % 10.0- 14.5 Automated blood platelet count (count/volume) 286 10*3/uL 130-400 Automated blood platelet mean volume measurement 10.4 [foz_us] 7.4-10.4 Automated blood neutrophils/100 leukocytes 76 % 42-75 Automated blood lymphocytes/100 leukocytes 17 % 12-44 Blood monocytes/100 leukocytes 5 % 0-12 Automated blood eosinophils/100 leukocytes 2 % 0-10 Automated blood basophils/100 leukocytes 0 % 0-10 Blood neutrophils automated count (number/volume) 6.0 10*3 1.8-7.8 Blood lymphocytes automated count (number/volume) 1.4 10*3 1.0-4.0 Blood monocytes automated count (number/volume) 0. 4 10*3 0.0-1.0 Automated eosinophil count 0.2 10*3/uL 0 .0-0.3 Automated blood basophil count (count/volume) 0.0 10*3/uL 0.0-0.1 Comprehensive metabolic panel - 02/28/16 02:10 Serum or plasma sodium measurement (moles/volume) 139 mmol/L 135-145 Serum or plasma potassium measurement (moles/volume) 3.5 mmol/L 3.6-5.0 Serum or plasma chloride measurement (moles/volume) 109 mmol/L 98-107 Carbon dioxide 15 mmol/L 21-32 Serum or plasma anion gap determination (moles/volume) 15 mmol/L 5-14 Serum or plasma urea nitrogen measurement (mass/volume ) 11 mg/dL 7-18 Serum or plasma creatinine measurement (mass/volume) 1.70 mg/dL 0.60-1.30 Serum or plasma urea nitrogen/creatinine mass ratio 6 NRG Serum or plasma creatinine measurement w ith calculation of estimated glomerular filtration rate 43 NRG Serum or plasma glucose measurement (mass/volume) 117 mg/dL 70-105 Serum or plasma calcium measurement (mass/volume) 9.3 mg/dL 8.5-10.1 Serum or plasma total bilirubin measurement (mass/volu me) 0.5 mg/dL 0.1-1.0 Serum or plasma alkaline phosphatase renée surement (enzymatic activity/volume) 93 U/L 40-136 Serum or plasma aspartate aminotransfera se measurement (enzymatic activity/volume) 26 U/L 5-34 Serum or plasma alanine aminotransferase measurement (enzymatic activity/volume) 41 U/L 0-55 Serum or plasma protein measurement (mass/volume) 7.3 g/dL 6.4-8.2 Serum or plasma albumin measurement (mass/volume) 4.4 g/dL 3.2-4.5 Lipase - 02/28/16 02:10 Lipase 21 U/L 8-78 Serum or plasma ethanol measurement (mas s/volume) - 02/28/16 02:10 Serum or plasma ethanol measurement (mass/volume) < mg/dL <10 Complete urinalysis with reflex to cultu re - 02/28/16 02:15 Urine color determination YELLOW NRG Urine clarity determination TURBID NR G Urine pH measurement by test strip 6 5-9 Specific gravity of urine by test strip 1.020 1.016-1.022 Urine protein assay by test strip, semi-quantitative 2+ NEGATIVE Urine glucose detection by automated test strip NE GATIVE NEGATIVE Erythrocytes detection in urine sediment by light micr oscopy 1+ NEGATIVE Urine ketones detection by automated test strip NE GATIVE NEGATIVE Urine nitrite detection by test strip POSITIVE NEGATIVE Urine total bilirubin detection by test strip NEGA TIVE NEGATIVE Urine urobilinogen measurement by automated test strip (mass/volume) NORMAL NORMAL Urine leukocyte esterase detection by dipstick 3+ NEGATIVE Automated urine sediment erythrocyte cou nt by microscopy (number/high power field) [HPF] NRG Automated urine sediment leukocyte count by microscopy (number/high power field) [HPF] NRG Bacteria detection in urine sediment by light microsco py LARGE NRG Crystals detection in urine sediment by light microsco py NONE NRG Casts detection in urine sediment by light microscopy NONE NRG Mucus detection in urine sediment by light microscopy NEGATIVE NRG Complete urinalysis with reflex to culture YES NRG Urine drug screening test - 02/28/16 02: 15 Urine acetaminophen detection by screening method NEGATIVE NEGATIVE Urine phencyclidine detection by screening method NEGATIVE NEGATIVE Urine benzodiazepines detection by screening method NEGATIVE NEGATIVE Urine cocaine detection NEGATIVE NEGATI VE Urine amphetamines detection by screening method N EGATIVE NEGATIVE Urine methamphetamine detection by screening method NEGATIVE NEGATIVE Urine cannabinoids detection by screening method N EGATIVE NEGATIVE Urine opiates detection by screening method NEGATI VE NEGATIVE Urine barbiturates detection NEGATIVE N EGATIVE Screening urine tricyclic antidepressants detection POSITIVE NEGATIVE Urine methadone detection by screening method NEGA TIVE NEGATIVE Bacterial urine culture - 02/28/16 02:15 Bacterial urine culture [id number] NRG COLONY COUNT 10,000/ML - 100,000/ML NRG FTX;REPORTABLE SENSITIVITY REPORTED 03/01 08:40 NRG Bacterial susceptibility panel - 6 02:15 Gentamicin susceptibility test by minimum inhibitory c oncentration <= NRG Trimethoprim/sulfamethoxazole susceptibi lity test by minimum inhibitoryconcentration <= NRG Ampicillin susceptibility test by minimum inhibitory c oncentration >= NRG Tobramycin susceptibility test by minimum inhibitory c oncentration <= NRG Cefazolin susceptibility test by minimum inhibitory co ncentration <= NRG Ceftriaxone susceptibility test by minimum inhibitory concentration <= NRG Ampicillin/sulbactam susceptibility test by minimum inhibitory concentration 4 NRG Piperacillin/tazobactam susceptibility t est by minimum inhibitory concentration <= NRG Ciprofloxacin susceptibility test by minimum inhibitor y concentration <= NRG Meropenem susceptibility test by minimum inhibitory co ncentration <= NRG Nitrofurantoin susceptibility test by mi nimum inhibitory concentration 64 NRG Aztreonam susceptibility test by minimum inhibitory co ncentration <= NRG Extended spectrum beta lactamase (ESBL) producing bacteria susceptibility test by minimum inhibitory concentration - [facility] [place] Bacterial susceptibility panel - 6 02:15 Gentamicin susceptibility test by minimum inhibitory c oncentration S NRG Vancomycin susceptibility test by minimum inhibitory c oncentration 1 NRG Levofloxacin susceptibility test by minimum inhibitory concentration >= NRG Tetracycline susceptibility test by minimum inhibitory concentration >= NRG Ampicillin susceptibility test by minimum inhibitory c oncentration <= NRG Ciprofloxacin susceptibility test by minimum inhibitor y concentration R NRG Nitrofurantoin susceptibility test by mi nimum inhibitory concentration <= NRG Linezolid susceptibility test by minimum inhibitory co ncentration 2 NRG Bacterial urine culture - 05/30/16 13:50 Bacterial urine culture [id number] NRG COLONY COUNT >100,000/ML NR FTX;REPORTABLE SEE COMMENT NRG FREE TEXT ENTRY 2 PLUS MIXED GRAM POSITIVES NRG FREE TEXT ENTRY 3 <10,000/ML [facility] [place] Bacterial susceptibility panel - 6 13:50 Gentamicin susceptibility test by minimum inhibitory c oncentration <= NRG Trimethoprim/sulfamethoxazole susceptibi lity test by minimum inhibitoryconcentration <= NRG Ampicillin susceptibility test by minimum inhibitory c oncentration >= NRG Tobramycin susceptibility test by minimum inhibitory c oncentration <= NRG Cefazolin susceptibility test by minimum inhibitory co ncentration <= NRG Ceftriaxone susceptibility test by minimum inhibitory concentration <= NRG Ampicillin/sulbactam susceptibility test by minimum inhibitory concentration 8 NRG Piperacillin/tazobactam susceptibility t est by minimum inhibitory concentration <= NRG Ciprofloxacin susceptibility test by minimum inhibitor y concentration <= NRG Meropenem susceptibility test by minimum inhibitory co ncentration <= NRG Nitrofurantoin susceptibility test by mi nimum inhibitory concentration 64 NRG Aztreonam susceptibility test by minimum inhibitory co ncentration <= NRG Extended spectrum beta lactamase (ESBL) producing bacteria susceptibility test by minimum inhibitory concentration - NR Bacterial susceptibility panel - 6 13:50 Gentamicin susceptibility test by minimum inhibitory c oncentration <= NRG Trimethoprim/sulfamethoxazole susceptibi lity test by minimum inhibitoryconcentration <= NRG Ampicillin susceptibility test by minimum inhibitory c oncentration 8 NRG Tobramycin susceptibility test by minimum inhibitory c oncentration <= NRG Cefazolin susceptibility test by minimum inhibitory co ncentration <= NRG Ceftriaxone susceptibility test by minimum inhibitory concentration <= NRG Ampicillin/sulbactam susceptibility test by minimum inhibitory concentration 4 NRG Piperacillin/tazobactam susceptibility t est by minimum inhibitory concentration <= NRG Ciprofloxacin susceptibility test by minimum inhibitor y concentration <= NRG Meropenem susceptibility test by minimum inhibitory co ncentration <= NRG Nitrofurantoin susceptibility test by mi nimum inhibitory concentration <= NRG Aztreonam susceptibility test by minimum inhibitory co ncentration <= NRG Extended spectrum beta lactamase (ESBL) producing bacteria susceptibility test by minimum inhibitory concentration - NRG Complete blood count (CBC) with automate d white blood cell (WBC) differential - 08/14/16 01:05 Blood leukocytes automated count (number/volume) 11.6 10*3/uL 4.3-11.0 Blood erythrocytes automated count (number/volume) 6.00 10*6/uL 4.35-5.85 Venous blood hemoglobin measurement (mass/volume) 17.0 g/dL 13.3-17.7 Blood hematocrit (volume fraction) 49 % 40-54 Automated erythrocyte mean corpuscular volume 82 [ foz_us] 80-99 Automated erythrocyte mean corpuscular h emoglobin (mass per erythrocyte) 28 pg 25-34 Automated erythrocyte mean corpuscular h emoglobin concentration measurement (mass/volume) 34 g/dL 32-36 Automated erythrocyte distribution width ratio 15. 3 % 10.0- 14.5 Automated blood platelet count (count/volume) 480 10*3/uL 130-400 Automated blood platelet mean volume measurement 9.3 [foz_us] 7.4-10.4 Automated blood neutrophils/100 leukocytes 75 % 42-75 Automated blood lymphocytes/100 leukocytes 19 % 12-44 Blood monocytes/100 leukocytes 6 % 0-12 Automated blood eosinophils/100 leukocytes 0 % 0-10 Automated blood basophils/100 leukocytes 0 % 0-10 Blood neutrophils automated count (number/volume) 8.7 10*3 1.8-7.8 Blood lymphocytes automated count (number/volume) 2.2 10*3 1.0-4.0 Blood monocytes automated count (number/volume) 0. 7 10*3 0.0-1.0 Automated eosinophil count 0.0 10*3/uL 0 .0-0.3 Automated blood basophil count (count/volume) 0.0 10*3/uL 0.0-0.1 Comprehensive metabolic panel - 08/14/16 01:05 Serum or plasma sodium measurement (moles/volume) 141 mmol/L 135-145 Serum or plasma potassium measurement (moles/volume) 3.2 mmol/L 3.6-5.0 Serum or plasma chloride measurement (moles/volume) 108 mmol/L 98-107 Carbon dioxide 20 mmol/L 21-32 Serum or plasma anion gap determination (moles/volume) 13 mmol/L 5-14 Serum or plasma urea nitrogen measurement (mass/volume ) 11 mg/dL 7-18 Serum or plasma creatinine measurement (mass/volume) 1.35 mg/dL 0.60-1.30 Serum or plasma urea nitrogen/creatinine mass ratio 8 NRG Serum or plasma creatinine measurement w ith calculation of estimated glomerular filtration rate 56 NRG Serum or plasma glucose measurement (mass/volume) 87 mg/dL 70-105 Serum or plasma calcium measurement (mass/volume) 9.2 mg/dL 8.5-10.1 Serum or plasma total bilirubin measurement (mass/volu me) 0.8 mg/dL 0.1-1.0 Serum or plasma alkaline phosphatase renée surement (enzymatic activity/volume) 92 U/L 40-136 Serum or plasma aspartate aminotransfera se measurement (enzymatic activity/volume) 19 U/L 5-34 Serum or plasma alanine aminotransferase measurement (enzymatic activity/volume) 30 U/L 0-55 Serum or plasma protein measurement (mass/volume) 7.5 g/dL 6.4-8.2 Serum or plasma albumin measurement (mass/volume) 4.4 g/dL 3.2-4.5 Lipase - 08/14/16 01:05 Lipase 26 U/L 8-78 Complete urinalysis with reflex to cultu re - 08/14/16 01:13 Urine color determination YELLOW NRG Urine clarity determination SLIGHTLY CLOUDY NRG Urine pH measurement by test strip 7 5-9 Specific gravity of urine by test strip 1.010 1.016-1.022 Urine protein assay by test strip, semi-quantitative 2+ NEGATIVE Urine glucose detection by automated test strip NE GATIVE NEGATIVE Erythrocytes detection in urine sediment by light micr oscopy 2+ NEGATIVE Urine ketones detection by automated test strip NE GATIVE NEGATIVE Urine nitrite detection by test strip POSITIVE NEGATIVE Urine total bilirubin detection by test strip NEGA TIVE NEGATIVE Urine urobilinogen measurement by automated test strip (mass/volume) NORMAL NORMAL Urine leukocyte esterase detection by dipstick 3+ NEGATIVE Automated urine sediment erythrocyte cou nt by microscopy (number/high power field) [HPF] NRG Automated urine sediment leukocyte count by microscopy (number/high power field) [HPF] NRG Bacteria detection in urine sediment by light microsco py LARGE NRG Crystals detection in urine sediment by light microsco py NONE NRG Casts detection in urine sediment by light microscopy NONE NRG Mucus detection in urine sediment by light microscopy SMALL NRG Complete urinalysis with reflex to culture YES NRG Urine drug screening test - 08/14/16 01: 13 Urine phencyclidine detection by screening method NEGATIVE NEGATIVE Urine benzodiazepines detection by screening method NEGATIVE NEGATIVE Urine cocaine detection NEGATIVE NEGATI VE Urine amphetamines detection by screening method N EGATIVE NEGATIVE Urine methamphetamine detection by screening method NEGATIVE NEGATIVE Urine cannabinoids detection by screening method N EGATIVE NEGATIVE Urine opiates detection by screening method NEGATI VE NEGATIVE Urine barbiturates detection NEGATIVE N EGATIVE Screening urine tricyclic antidepressants detection POSITIVE NEGATIVE Urine methadone detection by screening method NEGA TIVE NEGATIVE Urine oxycodone detection NEGATIVE NEGA TIVE Urine propoxyphene detection NEGATIVE N EGATIVE Bacterial urine culture - 08/14/16 01:13 Bacterial urine culture [id number] NRG COLONY COUNT >100,000/ML NRG FTX;REPORTABLE SENSITIVITY REPORTED 08/16/16 10:05 NRG URINE CULTURE RESULTS PLUS NRG Bacterial susceptibility panel - 7 01:13 Gentamicin susceptibility test by minimum inhibitory c oncentration <= NRG Trimethoprim/sulfamethoxazole susceptibi lity test by minimum inhibitoryconcentration <= NRG Ampicillin susceptibility test by minimum inhibitory c oncentration 4 NRG Tobramycin susceptibility test by minimum inhibitory c oncentration <= NRG Cefazolin susceptibility test by minimum inhibitory co ncentration <= NRG Ceftriaxone susceptibility test by minimum inhibitory concentration <= NRG Ampicillin/sulbactam susceptibility test by minimum inhibitory concentration <= NRG Piperacillin/tazobactam susceptibility t est by minimum inhibitory concentration <= NRG Ciprofloxacin susceptibility test by minimum inhibitor y concentration <= NRG Meropenem susceptibility test by minimum inhibitory co ncentration <= NRG Nitrofurantoin susceptibility test by mi nimum inhibitory concentration <= NRG Aztreonam susceptibility test by minimum inhibitory co ncentration <= NRG Extended spectrum beta lactamase (ESBL) producing bacteria susceptibility test by minimum inhibitory concentration - [facility] [place] Bacterial susceptibility panel - 7 01:13 Gentamicin susceptibility test by minimum inhibitory c oncentration <= NRG Trimethoprim/sulfamethoxazole susceptibi lity test by minimum inhibitoryconcentration <= NRG Ampicillin susceptibility test by minimum inhibitory c oncentration >= NRG Tobramycin susceptibility test by minimum inhibitory c oncentration <= NRG Cefazolin susceptibility test by minimum inhibitory co ncentration 8 NRG Ceftriaxone susceptibility test by minimum inhibitory concentration <= NRG Ampicillin/sulbactam susceptibility test by minimum inhibitory concentration 16 NRG Piperacillin/tazobactam susceptibility t est by minimum inhibitory concentration <= NRG Ciprofloxacin susceptibility test by minimum inhibitor y concentration <= NRG Meropenem susceptibility test by minimum inhibitory co ncentration <= NRG Nitrofurantoin susceptibility test by mi nimum inhibitory concentration <= NRG Aztreonam susceptibility test by minimum inhibitory co ncentration <= NRG Extended spectrum beta lactamase (ESBL) producing bacteria susceptibility test by minimum inhibitory concentration - [facility] [place] Bacterial susceptibility panel - 7 01:13 Gentamicin susceptibility test by minimum inhibitory c oncentration S NRG Vancomycin susceptibility test by minimum inhibitory c oncentration 1 NRG Levofloxacin susceptibility test by minimum inhibitory concentration >= NRG Tetracycline susceptibility test by minimum inhibitory concentration >= NRG Ampicillin susceptibility test by minimum inhibitory c oncentration <= NRG Ciprofloxacin susceptibility test by minimum inhibitor y concentration R NRG Nitrofurantoin susceptibility test by mi nimum inhibitory concentration <= NRG Linezolid susceptibility test by minimum inhibitory co ncentration 2 NRG Complete blood count (CBC) with automate d white blood cell (WBC) differential - 09/21/16 09:30 Blood leukocytes automated count (number/volume) 10.2 10*3/uL 4.3-11.0 Blood erythrocytes automated count (number/volume) 5.47 10*6/uL 4.35-5.85 Venous blood hemoglobin measurement (mass/volume) 16.0 g/dL 13.3-17.7 Blood hematocrit (volume fraction) 47 % 40-54 Automated erythrocyte mean corpuscular volume 85 [ foz_us] 80-99 Automated erythrocyte mean corpuscular h emoglobin (mass per erythrocyte) 29 pg 25-34 Automated erythrocyte mean corpuscular h emoglobin concentration measurement (mass/volume) 34 g/dL 32-36 Automated erythrocyte distribution width ratio 13. 8 % 10.0- 14.5 Automated blood platelet count (count/volume) 204 10*3/uL 130-400 Automated blood platelet mean volume measurement 10.5 [foz_us] 7.4-10.4 Automated blood neutrophils/100 leukocytes 76 % 42-75 Automated blood lymphocytes/100 leukocytes 16 % 12-44 Blood monocytes/100 leukocytes 6 % 0-12 Automated blood eosinophils/100 leukocytes 2 % 0-10 Automated blood basophils/100 leukocytes 0 % 0-10 Blood neutrophils automated count (number/volume) 7.7 10*3 1.8-7.8 Blood lymphocytes automated count (number/volume) 1.6 10*3 1.0-4.0 Blood monocytes automated count (number/volume) 0. 7 10*3 0.0-1.0 Automated eosinophil count 0.2 10*3/uL 0 .0-0.3 Automated blood basophil count (count/volume) 0.0 10*3/uL 0.0-0.1 PT panel in platelet poor plasma by coag ulation assay - 09/21/16 09:30 Prothrombin time (PT) in platelet poor plasma by coagu lation assay 13.0 s 12.2-14.7 INR in platelet poor plasma or blood by coagulation as say 1.0 0.8-1.4 Activated partial thromboplastin time (a PTT) in platelet poor plasma bycoagulation assay - 09/21/16 09:30 Activated partial thromboplastin time (a PTT) in platelet poor plasma bycoagulation assay 28 s 24-35 Influenza virus A and B antigen detectio n - 03/08/17 09:30 FLU RESULT NEGATIVE FOR INFLUENZA A AND B ANTIGENS BY IA NRG Blood lactic acid measurement (moles/vol ume) - 09/21/16 09:30 Blood lactic acid measurement (moles/volume) 1.61 mmol/L 0.50-2.00 Comprehensive metabolic panel - 09/21/16 09:30 Serum or plasma sodium measurement (moles/volume) 140 mmol/L 135-145 Serum or plasma potassium measurement (moles/volume) 3.8 mmol/L 3.6-5.0 Serum or plasma chloride measurement (moles/volume) 105 mmol/L 98-107 Carbon dioxide 25 mmol/L 21-32 Serum or plasma anion gap determination (moles/volume) 10 mmol/L 5-14 Serum or plasma urea nitrogen measurement (mass/volume ) 15 mg/dL 7-18 Serum or plasma creatinine measurement (mass/volume) 1.52 mg/dL 0.60-1.30 Serum or plasma urea nitrogen/creatinine mass ratio 10 NRG Serum or plasma creatinine measurement w ith calculation of estimated glomerular filtration rate 49 NRG Serum or plasma glucose measurement (mass/volume) 106 mg/dL 70-105 Serum or plasma calcium measurement (mass/volume) 9.5 mg/dL 8.5-10.1 Serum or plasma total bilirubin measurement (mass/volu me) 0.8 mg/dL 0.1-1.0 Serum or plasma alkaline phosphatase renée surement (enzymatic activity/volume) 84 U/L 40-136 Serum or plasma aspartate aminotransfera se measurement (enzymatic activity/volume) 53 U/L 5-34 Serum or plasma alanine aminotransferase measurement (enzymatic activity/volume) 64 U/L 0-55 Serum or plasma protein measurement (mass/volume) 7.9 g/dL 6.4-8.2 Serum or plasma albumin measurement (mass/volume) 4.6 g/dL 3.2-4.5 Magnesium - 09/21/16 09:30 Magnesium 1.9 mg/dL 1.8-2.4 Serum or plasma thyrotropin measurement by detection limit <=0.05 miu/l (units/volume) - 09/21/16 09:30 Serum or plasma thyrotropin measurement by detection limit <=0.05 miu/l (units/volume) 2.57 u[iU]/mL 0.35-4.94 Serum or plasma ethanol measurement (mas s/volume) - 09/21/16 09:30 Serum or plasma ethanol measurement (mass/volume) < mg/dL <10 Acute hepatitis panel - 09/21/16 09:30 Confirmatory quantitative serum or plasm a hepatitis B virus surface antigen measurement Non-Reactive Non-Reactive Hepatitis A virus IgM antibody assay Non-Reactive Non- Reactive Hepatitis B virus core IgM antibody assay Non-Reac tive Non- Reactive Serum hepatitis C virus antibody detection Non-Noemi ctive Non-Reactive Bacterial blood culture - 09/21/16 09:30 FREE TEXT EXTERNAL SEE COMMENT NRG QUANTITY OF GROWTH Isolated NRG Bacterial blood culture [id number] NRG Capillary blood glucose measurement by g lucometer (mass/volume) - 09/21/16 09:38 Capillary blood glucose measurement by glucometer (mas s/volume) 103 mg/dL 70-110 Arterial blood gas measurement - 7 09:55 Blood pCO2 33 mm[Hg] 35-45 Blood pO2 70 mm[Hg] 79-93 Arterial blood bicarbonate measurement (moles/volume) 21 mmol/L 23-27 Arterial blood base excess by calculation -3.2 mmo l/L -2.5-2.5 Arterial blood oxygen saturation measurement 95 % 94-100 * Inhaled oxygen flow rate 3 NRG Arterial blood pH measurement with patient temperature correction 7.42 7.37-7.43 Arterial blood carbon dioxide, total measurement (mole s/volume) 21.4 mmol/L 21.0-31.0 Body site RT RAD NRG Assessment of wrist artery patency prior to arterial p uncture YES-POS NRG Setting of ventilation mode NO NR G Measurement of body temperature 100.3 NRG Bacterial blood culture - 09/21/16 10:00 QUANTITY OF GROWTH Isolated NRG Bacterial blood culture [id number] NRG FREE TEXT ENTRY 2 NOT STREPTOCOCCUS PNEUMONIAE AND NRG FREE TEXT ENTRY 3 NOT GROUP D STREP NRG Complete urinalysis with reflex to cultu re - 09/21/16 10:15 Urine color determination YELLOW NRG Urine clarity determination VERY CLOUDY NRG Urine pH measurement by test strip 6 5-9 Specific gravity of urine by test strip 1.010 1.016-1.022 Urine protein assay by test strip, semi-quantitative 3+ NEGATIVE Urine glucose detection by automated test strip NE GATIVE NEGATIVE Erythrocytes detection in urine sediment by light micr oscopy 5+ NEGATIVE Urine ketones detection by automated test strip NE GATIVE NEGATIVE Urine nitrite detection by test strip NEGATIVE NEGATIVE Urine total bilirubin detection by test strip NEGA TIVE NEGATIVE Urine urobilinogen measurement by automated test strip (mass/volume) NORMAL NORMAL Urine leukocyte esterase detection by dipstick 3+ NEGATIVE Automated urine sediment erythrocyte cou nt by microscopy (number/high power field) > [HPF] NRG Automated urine sediment leukocyte count by microscopy (number/high power field) > [HPF] NRG Bacteria detection in urine sediment by light microsco py MODERATE NRG Squamous epithelial cells detection in u rine sediment by light microscopy 0-2 NRG Crystals detection in urine sediment by light microsco py NONE NRG Casts detection in urine sediment by light microscopy NONE NRG Mucus detection in urine sediment by light microscopy NEGATIVE NRG Complete urinalysis with reflex to culture YES NRG Urine drug screening test - 09/21/16 10: 15 Urine phencyclidine detection by screening method NEGATIVE NEGATIVE Urine benzodiazepines detection by screening method POSITIVE NEGATIVE Urine cocaine detection NEGATIVE NEGATI VE Urine amphetamines detection by screening method N EGATIVE NEGATIVE Urine methamphetamine detection by screening method NEGATIVE NEGATIVE Urine cannabinoids detection by screening method N EGATIVE NEGATIVE Urine opiates detection by screening method POSITI VE NEGATIVE Urine barbiturates detection NEGATIVE N EGATIVE Screening urine tricyclic antidepressants detection NEGATIVE NEGATIVE Urine methadone detection by screening method NEGA TIVE NEGATIVE Urine oxycodone detection POSITIVE NEGA TIVE Urine propoxyphene detection NEGATIVE N EGATIVE Bacterial urine culture - 09/21/16 10:15 Bacterial urine culture [id number] NRG COLONY COUNT 10,000/ML - 100,000/ML NRG FTX;REPORTABLE SENSITIVITY REPORTED AT 1712, 3-9-1 7 NR Bacterial susceptibility panel - 7 10:15 Gentamicin susceptibility test by minimum inhibitory c oncentration <= NRG Trimethoprim/sulfamethoxazole susceptibi lity test by minimum inhibitoryconcentration <= NRG Ampicillin susceptibility test by minimum inhibitory c oncentration 4 NRG Tobramycin susceptibility test by minimum inhibitory c oncentration <= NRG Cefazolin susceptibility test by minimum inhibitory co ncentration <= NRG Ceftriaxone susceptibility test by minimum inhibitory concentration <= NRG Ampicillin/sulbactam susceptibility test by minimum inhibitory concentration 4 NRG Piperacillin/tazobactam susceptibility t est by minimum inhibitory concentration <= NRG Ciprofloxacin susceptibility test by minimum inhibitor y concentration <= NRG Meropenem susceptibility test by minimum inhibitory co ncentration <= NRG Nitrofurantoin susceptibility test by mi nimum inhibitory concentration <= NRG Aztreonam susceptibility test by minimum inhibitory co ncentration <= NRG Extended spectrum beta lactamase (ESBL) producing bacteria susceptibility test by minimum inhibitory concentration - NR Bacterial susceptibility panel - 7 10:15 Gentamicin susceptibility test by minimum inhibitory c oncentration <= NRG Trimethoprim/sulfamethoxazole susceptibi lity test by minimum inhibitoryconcentration <= NRG Ampicillin susceptibility test by minimum inhibitory c oncentration >= NRG Tobramycin susceptibility test by minimum inhibitory c oncentration <= NRG Cefazolin susceptibility test by minimum inhibitory co ncentration <= NRG Ceftriaxone susceptibility test by minimum inhibitory concentration <= NRG Ampicillin/sulbactam susceptibility test by minimum inhibitory concentration 4 NRG Piperacillin/tazobactam susceptibility t est by minimum inhibitory concentration <= NRG Ciprofloxacin susceptibility test by minimum inhibitor y concentration <= NRG Meropenem susceptibility test by minimum inhibitory co ncentration <= NRG Nitrofurantoin susceptibility test by mi nimum inhibitory concentration 32 NRG Aztreonam susceptibility test by minimum inhibitory co ncentration <= NRG Extended spectrum beta lactamase (ESBL) producing bacteria susceptibility test by minimum inhibitory concentration - NR Complete blood count (CBC) with automate d white blood cell (WBC) differential - 09/22/16 05:09 Blood leukocytes automated count (number/volume) 5.7 10*3/uL 4.3-11.0 Blood erythrocytes automated count (number/volume) 4.20 10*6/uL 4.35-5.85 Venous blood hemoglobin measurement (mass/volume) 12.1 g/dL 13.3-17.7 Blood hematocrit (volume fraction) 36 % 40-54 Automated erythrocyte mean corpuscular volume 86 [ foz_us] 80-99 Automated erythrocyte mean corpuscular h emoglobin (mass per erythrocyte) 29 pg 25-34 Automated erythrocyte mean corpuscular h emoglobin concentration measurement (mass/volume) 33 g/dL 32-36 Automated erythrocyte distribution width ratio 13. 2 % 10.0- 14.5 Automated blood platelet count (count/volume) 150 10*3/uL 130-400 Automated blood platelet mean volume measurement 10.8 [foz_us] 7.4-10.4 Automated blood neutrophils/100 leukocytes 61 % 42-75 Automated blood lymphocytes/100 leukocytes 26 % 12-44 Blood monocytes/100 leukocytes 9 % 0-12 Automated blood eosinophils/100 leukocytes 5 % 0-10 Automated blood basophils/100 leukocytes 0 % 0-10 Blood neutrophils automated count (number/volume) 3.4 10*3 1.8-7.8 Blood lymphocytes automated count (number/volume) 1.5 10*3 1.0-4.0 Blood monocytes automated count (number/volume) 0. 5 10*3 0.0-1.0 Automated eosinophil count 0.3 10*3/uL 0 .0-0.3 Automated blood basophil count (count/volume) 0.0 10*3/uL 0.0-0.1 Comprehensive metabolic panel - 09/22/16 05:09 Serum or plasma sodium measurement (moles/volume) 137 mmol/L 135-145 Serum or plasma potassium measurement (moles/volume) 3.4 mmol/L 3.6-5.0 Serum or plasma chloride measurement (moles/volume) 106 mmol/L 98-107 Carbon dioxide 23 mmol/L 21-32 Serum or plasma anion gap determination (moles/volume) 8 mmol/L 5-14 Serum or plasma urea nitrogen measurement (mass/volume ) 10 mg/dL 7-18 Serum or plasma creatinine measurement (mass/volume) 0.92 mg/dL 0.60-1.30 Serum or plasma urea nitrogen/creatinine mass ratio 11 NRG Serum or plasma creatinine measurement w ith calculation of estimated glomerular filtration rate > NRG Serum or plasma glucose measurement (mass/volume) 105 mg/dL 70-105 Serum or plasma calcium measurement (mass/volume) 8.0 mg/dL 8.5-10.1 Serum or plasma total bilirubin measurement (mass/volu me) 1.1 mg/dL 0.1-1.0 Serum or plasma alkaline phosphatase renée surement (enzymatic activity/volume) 58 U/L 40-136 Serum or plasma aspartate aminotransfera se measurement (enzymatic activity/volume) 25 U/L 5-34 Serum or plasma alanine aminotransferase measurement (enzymatic activity/volume) 36 U/L 0-55 Serum or plasma protein measurement (mass/volume) 5.4 g/dL 6.4-8.2 Serum or plasma albumin measurement (mass/volume) 3.2 g/dL 3.2-4.5 Complete blood count (CBC) with automate d white blood cell (WBC) differential - 10/06/16 21:50 Blood leukocytes automated count (number/volume) 12.8 10*3/uL 4.3-11.0 Blood erythrocytes automated count (number/volume) 5.91 10*6/uL 4.35-5.85 Venous blood hemoglobin measurement (mass/volume) 17.2 g/dL 13.3-17.7 Blood hematocrit (volume fraction) 49 % 40-54 Automated erythrocyte mean corpuscular volume 83 [ foz_us] 80-99 Automated erythrocyte mean corpuscular h emoglobin (mass per erythrocyte) 29 pg 25-34 Automated erythrocyte mean corpuscular h emoglobin concentration measurement (mass/volume) 35 g/dL 32-36 Automated erythrocyte distribution width ratio 14. 2 % 10.0- 14.5 Automated blood platelet count (count/volume) 453 10*3/uL 130-400 Automated blood platelet mean volume measurement 10.4 [foz_us] 7.4-10.4 Automated blood neutrophils/100 leukocytes 65 % 42-75 Automated blood lymphocytes/100 leukocytes 25 % 12-44 Blood monocytes/100 leukocytes 9 % 0-12 Automated blood eosinophils/100 leukocytes 0 % 0-10 Automated blood basophils/100 leukocytes 0 % 0-10 Blood neutrophils automated count (number/volume) 8.4 10*3 1.8-7.8 Blood lymphocytes automated count (number/volume) 3.2 10*3 1.0-4.0 Blood monocytes automated count (number/volume) 1. 2 10*3 0.0-1.0 Automated eosinophil count 0.0 10*3/uL 0 .0-0.3 Automated blood basophil count (count/volume) 0.0 10*3/uL 0.0-0.1 Comprehensive metabolic panel - 10/06/16 21:50 Serum or plasma sodium measurement (moles/volume) 142 mmol/L 135-145 Serum or plasma potassium measurement (moles/volume) 3.6 mmol/L 3.6-5.0 Serum or plasma chloride measurement (moles/volume) 111 mmol/L 98-107 Carbon dioxide 19 mmol/L 21-32 Serum or plasma anion gap determination (moles/volume) 12 mmol/L 5-14 Serum or plasma urea nitrogen measurement (mass/volume ) 14 mg/dL 7-18 Serum or plasma creatinine measurement (mass/volume) 1.42 mg/dL 0.60-1.30 Serum or plasma urea nitrogen/creatinine mass ratio 10 NRG Serum or plasma creatinine measurement w ith calculation of estimated glomerular filtration rate 53 NRG Serum or plasma glucose measurement (mass/volume) 96 mg/dL 70-105 Serum or plasma calcium measurement (mass/volume) 9.3 mg/dL 8.5-10.1 Serum or plasma total bilirubin measurement (mass/volu me) 1.0 mg/dL 0.1-1.0 Serum or plasma alkaline phosphatase renée surement (enzymatic activity/volume) 75 U/L 40-136 Serum or plasma aspartate aminotransfera se measurement (enzymatic activity/volume) 37 U/L 5-34 Serum or plasma alanine aminotransferase measurement (enzymatic activity/volume) 52 U/L 0-55 Serum or plasma protein measurement (mass/volume) 7.7 g/dL 6.4-8.2 Serum or plasma albumin measurement (mass/volume) 4.7 g/dL 3.2-4.5 Serum or plasma amylase measurement (enz ymatic activity/volume) - 10/06/16 21:50 Serum or plasma amylase measurement (enzymatic activit y/volume) 95 U/L 25-125 Lipase - 10/06/16 21:50 Lipase 41 U/L 8-78 Urine drug screening test - 10/06/16 22: 20 Urine phencyclidine detection by screening method NEGATIVE NEGATIVE Urine benzodiazepines detection by screening method POSITIVE NEGATIVE Urine cocaine detection NEGATIVE NEGATI VE Urine amphetamines detection by screening method N EGATIVE NEGATIVE Urine methamphetamine detection by screening method NEGATIVE NEGATIVE Urine cannabinoids detection by screening method N EGATIVE NEGATIVE Urine opiates detection by screening method NEGATI VE NEGATIVE Urine barbiturates detection NEGATIVE N EGATIVE Screening urine tricyclic antidepressants detection NEGATIVE NEGATIVE Urine methadone detection by screening method NEGA TIVE NEGATIVE Urine oxycodone detection NEGATIVE NEGA TIVE Urine propoxyphene detection NEGATIVE N EGATIVE Complete urinalysis with reflex to cultu re - 10/06/16 22:20 Urine color determination YELLOW NRG Urine clarity determination SLIGHTLY CLOUDY NRG Urine pH measurement by test strip 6.5 5-9 Specific gravity of urine by test strip 1.015 1.016-1.022 Urine protein assay by test strip, semi-quantitative 2+ NEGATIVE Urine glucose detection by automated test strip NE GATIVE NEGATIVE Erythrocytes detection in urine sediment by light micr oscopy 2+ NEGATIVE Urine ketones detection by automated test strip NE GATIVE NEGATIVE Urine nitrite detection by test strip POSITIVE NEGATIVE Urine total bilirubin detection by test strip NEGA TIVE NEGATIVE Urine urobilinogen measurement by automated test strip (mass/volume) NORMAL NORMAL Urine leukocyte esterase detection by dipstick 3+ NEGATIVE Automated urine sediment erythrocyte cou nt by microscopy (number/high power field) [HPF] NRG Automated urine sediment leukocyte count by microscopy (number/high power field) [HPF] NRG Bacteria detection in urine sediment by light microsco py MODERATE NRG Squamous epithelial cells detection in u rine sediment by light microscopy 25-50 NRG Crystals detection in urine sediment by light microsco py NONE NRG Casts detection in urine sediment by light microscopy NONE NRG Mucus detection in urine sediment by light microscopy NEGATIVE NRG Complete urinalysis with reflex to culture YES NRG Bacterial urine culture - 10/06/16 22:20 Bacterial urine culture FOOTNOTE NRG Stool leukocytes detection by light micr oscopy - 10/06/16 22:33 FECAL WBC RESULTS NO WBC'S OBSERVED ON DIRECT SMEA R NRG FECAL NOTE FECAL LEUKOCYTES MAY BE INTE RMITTENTLY PRESENT OR NRG FECAL NOTE UNEVENLY DISTRIBUTED IN STOO L SPECIMENS, AND WBC NRG FECAL NOTE MORPHOLOGY DEGRADES DURING TRANSPORT NRG FECAL NOTE NOTE: NRG C DIFFICILE AG + TOXIN A/B. - 10/06/16 2 2:33 RESULTS NEGATIVE FOR ANTIGEN AND TOXIN A/B NRG Stool bacteria identification by culture - 10/06/16 22:33 NEGATIVE FOR 0157 NEGATIVE FOR E COLI 0157 NRG NEGATIVE FOR CAMPY NEGATIVE FOR CAMPYLOBACTER NRG NEGATIVE FOR SHIGELLA NEGATIVE FOR SHIGELLA NRG NEGATIVE FOR SALMONELLA NEGATIVE FOR SALMONELLA NRG Complete blood count (CBC) with automate d white blood cell (WBC) differential - 10/20/16 23:36 Blood leukocytes automated count (number/volume) 10.6 10*3/uL 4.3-11.0 Blood erythrocytes automated count (number/volume) 5.99 10*6/uL 4.35-5.85 Venous blood hemoglobin measurement (mass/volume) 17.1 g/dL 13.3-17.7 Blood hematocrit (volume fraction) 51 % 40-54 Automated erythrocyte mean corpuscular volume 84 [ foz_us] 80-99 Automated erythrocyte mean corpuscular h emoglobin (mass per erythrocyte) 29 pg 25-34 Automated erythrocyte mean corpuscular h emoglobin concentration measurement (mass/volume) 34 g/dL 32-36 Automated erythrocyte distribution width ratio 14. 4 % 10.0- 14.5 Automated blood platelet count (count/volume) 260 10*3/uL 130-400 Automated blood platelet mean volume measurement 10.5 [foz_us] 7.4-10.4 Automated blood neutrophils/100 leukocytes 69 % 42-75 Automated blood lymphocytes/100 leukocytes 20 % 12-44 Blood monocytes/100 leukocytes 9 % 0-12 Automated blood eosinophils/100 leukocytes 2 % 0-10 Automated blood basophils/100 leukocytes 0 % 0-10 Blood neutrophils automated count (number/volume) 7.3 10*3 1.8-7.8 Blood lymphocytes automated count (number/volume) 2.1 10*3 1.0-4.0 Blood monocytes automated count (number/volume) 0. 9 10*3 0.0-1.0 Automated eosinophil count 0.2 10*3/uL 0 .0-0.3 Automated blood basophil count (count/volume) 0.0 10*3/uL 0.0-0.1 Comprehensive metabolic panel - 10/20/16 23:36 Serum or plasma sodium measurement (moles/volume) 145 mmol/L 135-145 Serum or plasma potassium measurement (moles/volume) 3.1 mmol/L 3.6-5.0 Serum or plasma chloride measurement (moles/volume) 107 mmol/L 98-107 Carbon dioxide 25 mmol/L 21-32 Serum or plasma anion gap determination (moles/volume) 13 mmol/L 5-14 Serum or plasma urea nitrogen measurement (mass/volume ) 15 mg/dL 7-18 Serum or plasma creatinine measurement (mass/volume) 1.41 mg/dL 0.60-1.30 Serum or plasma urea nitrogen/creatinine mass ratio 11 NRG Serum or plasma creatinine measurement w ith calculation of estimated glomerular filtration rate 53 NRG Serum or plasma glucose measurement (mass/volume) 100 mg/dL 70-105 Serum or plasma calcium measurement (mass/volume) 9.5 mg/dL 8.5-10.1 Serum or plasma total bilirubin measurement (mass/volu me) 1.2 mg/dL 0.1-1.0 Serum or plasma alkaline phosphatase renée surement (enzymatic activity/volume) 74 U/L 40-136 Serum or plasma aspartate aminotransfera se measurement (enzymatic activity/volume) 34 U/L 5-34 Serum or plasma alanine aminotransferase measurement (enzymatic activity/volume) 33 U/L 0-55 Serum or plasma protein measurement (mass/volume) 7.6 g/dL 6.4-8.2 Serum or plasma albumin measurement (mass/volume) 4.5 g/dL 3.2-4.5 Magnesium - 10/20/16 23:36 Magnesium 2.3 mg/dL 1.8-2.4 Lipase - 10/20/16 23:36 Lipase 26 U/L 8-78 Serum or plasma C reactive protein measu rement (mass/volume) - 10/20/16 23:36 Serum or plasma C reactive protein measurement (mass/v olume) 0.71 mg/dL 0.00-0.50 Complete urinalysis with reflex to cultu re - 10/21/16 00:27 Urine color determination YELLOW NRG Urine clarity determination SLIGHTLY CLOUDY NRG Urine pH measurement by test strip 6 5-9 Specific gravity of urine by test strip 1.015 1.016-1.022 Urine protein assay by test strip, semi-quantitative 2+ NEGATIVE Urine glucose detection by automated test strip NE GATIVE NEGATIVE Erythrocytes detection in urine sediment by light micr oscopy 2+ NEGATIVE Urine ketones detection by automated test strip NE GATIVE NEGATIVE Urine nitrite detection by test strip POSITIVE NEGATIVE Urine total bilirubin detection by test strip NEGA TIVE NEGATIVE Urine urobilinogen measurement by automated test strip (mass/volume) NORMAL NORMAL Urine leukocyte esterase detection by dipstick 3+ NEGATIVE Automated urine sediment erythrocyte cou nt by microscopy (number/high power field) NONE NRG Automated urine sediment leukocyte count by microscopy (number/high power field) [HPF] NRG Bacteria detection in urine sediment by light microsco py LARGE NRG Squamous epithelial cells detection in u rine sediment by light microscopy 2-5 NRG Crystals detection in urine sediment by light microsco py NONE NRG Casts detection in urine sediment by light microscopy NONE NRG Mucus detection in urine sediment by light microscopy LARGE NRG Complete urinalysis with reflex to culture YES NRG Bacterial urine culture - 10/21/16 00:27 Bacterial urine culture [id number] NRG COLONY COUNT 10,000/ML - 100,000/ML NRG FTX;REPORTABLE SENSITIVITY REPORTED 10/23/16 8:45 NRG Bacterial susceptibility panel - 7 00:27 Oxacillin susceptibility test by minimum inhibitory co ncentration <= NRG Gentamicin susceptibility test by minimum inhibitory c oncentration <= NRG Trimethoprim/sulfamethoxazole susceptibi lity test by minimum inhibitoryconcentration <= NRG Vancomycin susceptibility test by minimum inhibitory c oncentration <= NRG Levofloxacin susceptibility test by minimum inhibitory concentration <= NRG Rifampin susceptibility test by minimum inhibitory con centration <= NRG Tetracycline susceptibility test by minimum inhibitory concentration <= NRG Bacterial susceptibility panel - 7 00:27 Gentamicin susceptibility test by minimum inhibitory c oncentration S NRG Vancomycin susceptibility test by minimum inhibitory c oncentration 1 NRG Levofloxacin susceptibility test by minimum inhibitory concentration >= NRG Tetracycline susceptibility test by minimum inhibitory concentration >= NRG Ampicillin susceptibility test by minimum inhibitory c oncentration <= NRG Ciprofloxacin susceptibility test by minimum inhibitor y concentration R NRG Nitrofurantoin susceptibility test by mi nimum inhibitory concentration <= NRG Linezolid susceptibility test by minimum inhibitory co ncentration 1 NRG Complete blood count (CBC) with automate d white blood cell (WBC) differential - 01/01/17 04:09 Blood leukocytes automated count (number/volume) 16.0 10*3/uL 4.3-11.0 Blood erythrocytes automated count (number/volume) 6.16 10*6/uL 4.35-5.85 Venous blood hemoglobin measurement (mass/volume) 17.6 g/dL 13.3-17.7 Blood hematocrit (volume fraction) 51 % 40-54 Automated erythrocyte mean corpuscular volume 82 [ foz_us] 80-99 Automated erythrocyte mean corpuscular h emoglobin (mass per erythrocyte) 29 pg 25-34 Automated erythrocyte mean corpuscular h emoglobin concentration measurement (mass/volume) 35 g/dL 32-36 Automated erythrocyte distribution width ratio 13. 8 % 10.0- 14.5 Automated blood platelet count (count/volume) 490 10*3/uL 130-400 Automated blood platelet mean volume measurement 10.2 [foz_us] 7.4-10.4 Automated blood neutrophils/100 leukocytes 68 % 42-75 Automated blood lymphocytes/100 leukocytes 23 % 12-44 Blood monocytes/100 leukocytes 8 % 0-12 Automated blood eosinophils/100 leukocytes 1 % 0-10 Automated blood basophils/100 leukocytes 0 % 0-10 Blood neutrophils automated count (number/volume) 10.9 10*3 1.8-7.8 Blood lymphocytes automated count (number/volume) 3.6 10*3 1.0-4.0 Blood monocytes automated count (number/volume) 1. 3 10*3 0.0-1.0 Automated eosinophil count 0.1 10*3/uL 0 .0-0.3 Automated blood basophil count (count/volume) 0.1 10*3/uL 0.0-0.1 PT panel in platelet poor plasma by coag ulation assay - 01/01/17 04:09 Prothrombin time (PT) in platelet poor plasma by coagu lation assay 13.4 s 12.2-14.7 INR in platelet poor plasma or blood by coagulation as say 1.1 0.8-1.4 Activated partial thromboplastin time (a PTT) in platelet poor plasma bycoagulation assay - 01/01/17 04:09 Activated partial thromboplastin time (a PTT) in platelet poor plasma bycoagulation assay 28 s 24-35 Comprehensive metabolic panel - 01/01/17 04:09 Serum or plasma sodium measurement (moles/volume) 138 mmol/L 135-145 Serum or plasma potassium measurement (moles/volume) 3.0 mmol/L 3.6-5.0 Serum or plasma chloride measurement (moles/volume) 108 mmol/L 98-107 Carbon dioxide 14 mmol/L 21-32 Serum or plasma anion gap determination (moles/volume) 16 mmol/L 5-14 Serum or plasma urea nitrogen measurement (mass/volume ) 13 mg/dL 7-18 Serum or plasma creatinine measurement (mass/volume) 1.56 mg/dL 0.60-1.30 Serum or plasma urea nitrogen/creatinine mass ratio 8 0-20 Serum or plasma creatinine measurement w ith calculation of estimated glomerular filtration rate 47 NRG Serum or plasma glucose measurement (mass/volume) 118 mg/dL 70-105 Serum or plasma calcium measurement (mass/volume) 10.1 mg/dL 8.5-10.1 Serum or plasma total bilirubin measurement (mass/volu me) 0.6 mg/dL 0.1-1.0 Serum or plasma alkaline phosphatase renée surement (enzymatic activity/volume) 97 U/L 40-136 Serum or plasma aspartate aminotransfera se measurement (enzymatic activity/volume) 31 U/L 5-34 Serum or plasma alanine aminotransferase measurement (enzymatic activity/volume) 56 U/L 0-55 Serum or plasma protein measurement (mass/volume) 8.8 g/dL 6.4-8.2 Serum or plasma albumin measurement (mass/volume) 4.8 g/dL 3.2-4.5 Magnesium - 01/01/17 04:09 Magnesium 2.4 mg/dL 1.8-2.4 Serum or plasma troponin i.cardiac measu rement (mass/volume) - 01/01/17 04:09 Serum or plasma troponin i.cardiac measurement (mass/v olume) < ng/mL <0.30 Serum or plasma amylase measurement (enz ymatic activity/volume) - 01/01/17 04:09 Serum or plasma amylase measurement (enzymatic activit y/volume) 85 U/L 25-125 Blood manual differential performed dete ction - 01/01/17 04:09 Blood monocytes/100 leukocytes 6 % NRG Manual blood segmented neutrophils/100 leukocytes 63 % NRG Blood band neutrophils/100 leukocytes 2 % NRG Manual blood lymphocytes/100 leukocytes 29 % NRG Blood erythrocyte morphology finding identification NORMAL NRG Lipase - 01/01/17 04:09 Lipase 35 U/L 8-78 Serum or plasma thyrotropin measurement by detection limit <=0.05 miu/l (units/volume) - 01/01/17 04:09 Serum or plasma thyrotropin measurement by detection limit <=0.05 miu/l (units/volume) 1.36 u[iU]/mL 0.35-4.94 Complete urinalysis with reflex to cultu re - 01/01/17 04:12 Urine color determination YELLOW NRG Urine clarity determination MUCOUS NR G Urine pH measurement by test strip 7 5-9 Specific gravity of urine by test strip 1.010 1.016-1.022 Urine protein assay by test strip, semi-quantitative 2+ NEGATIVE Urine glucose detection by automated test strip NE GATIVE NEGATIVE Erythrocytes detection in urine sediment by light micr oscopy 2+ NEGATIVE Urine ketones detection by automated test strip NE GATIVE NEGATIVE Urine nitrite detection by test strip NEGATIVE NEGATIVE Urine total bilirubin detection by test strip NEGA TIVE NEGATIVE Urine urobilinogen measurement by automated test strip (mass/volume) NORMAL NORMAL Urine leukocyte esterase detection by dipstick 3+ NEGATIVE Automated urine sediment erythrocyte cou nt by microscopy (number/high power field) [HPF] NRG Automated urine sediment leukocyte count by microscopy (number/high power field) [HPF] NRG Bacteria detection in urine sediment by light microsco py LARGE NRG Squamous epithelial cells detection in u rine sediment by light microscopy NONE NRG Crystals detection in urine sediment by light microsco py NONE NRG Casts detection in urine sediment by light microscopy NONE NRG Mucus detection in urine sediment by light microscopy NEGATIVE NRG Complete urinalysis with reflex to culture YES NRG Urine drug screening test - 01/01/17 04: 12 Urine phencyclidine detection by screening method NEGATIVE NEGATIVE Urine benzodiazepines detection by screening method POSITIVE NEGATIVE Urine cocaine detection NEGATIVE NEGATI VE Urine amphetamines detection by screening method N EGATIVE NEGATIVE Urine methamphetamine detection by screening method NEGATIVE NEGATIVE Urine cannabinoids detection by screening method N EGATIVE NEGATIVE Urine opiates detection by screening method NEGATI VE NEGATIVE Urine barbiturates detection NEGATIVE N EGATIVE Screening urine tricyclic antidepressants detection NEGATIVE NEGATIVE Urine methadone detection by screening method NEGA TIVE NEGATIVE Urine oxycodone detection NEGATIVE NEGA TIVE Urine propoxyphene detection NEGATIVE N EGATIVE Bacterial urine culture - 01/01/17 04:12 Bacterial urine culture [id number] NRG COLONY COUNT 10,000/ML - 100,000/ML NRG FTX;REPORTABLE SENSITIVITY REPORTED 01/02 19:05 NRG FREE TEXT ENTRY 3 MIXED GRAM 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 NRG Bacterial susceptibility panel - 7 04:12 Gentamicin susceptibility test by minimum inhibitory c oncentration <= NRG Trimethoprim/sulfamethoxazole susceptibi lity test by minimum inhibitoryconcentration <= NRG Ampicillin susceptibility test by minimum inhibitory c oncentration >= NRG Tobramycin susceptibility test by minimum inhibitory c oncentration <= NRG Cefazolin susceptibility test by minimum inhibitory co ncentration <= NRG Ceftriaxone susceptibility test by minimum inhibitory concentration <= NRG Ampicillin/sulbactam susceptibility test by minimum inhibitory concentration 4 NRG Piperacillin/tazobactam susceptibility t est by minimum inhibitory concentration <= NRG Ciprofloxacin susceptibility test by minimum inhibitor y concentration <= NRG Meropenem susceptibility test by minimum inhibitory co ncentration <= NRG Nitrofurantoin susceptibility test by mi nimum inhibitory concentration 64 NRG Aztreonam susceptibility test by minimum inhibitory co ncentration <= NRG Extended spectrum beta lactamase (ESBL) producing bacteria susceptibility test by minimum inhibitory concentration - [facility] [place] Bacterial susceptibility panel - 7 04:12 Gentamicin susceptibility test by minimum inhibitory c oncentration <= NRG Trimethoprim/sulfamethoxazole susceptibi lity test by minimum inhibitoryconcentration <= NRG Ampicillin susceptibility test by minimum inhibitory c oncentration R NRG Tobramycin susceptibility test by minimum inhibitory c oncentration <= NRG Cefazolin susceptibility test by minimum inhibitory co ncentration >= NRG Ceftriaxone susceptibility test by minimum inhibitory concentration <= NRG Ampicillin/sulbactam susceptibility test by minimum inhibitory concentration <= NRG Piperacillin/tazobactam susceptibility t est by minimum inhibitory concentration <= NRG Ciprofloxacin susceptibility test by minimum inhibitor y concentration <= NRG Meropenem susceptibility test by minimum inhibitory co ncentration <= NRG Nitrofurantoin susceptibility test by mi nimum inhibitory concentration R NRG Aztreonam susceptibility test by minimum inhibitory co ncentration <= [facility] [place] Bacterial susceptibility panel - 7 04:12 Gentamicin susceptibility test by minimum inhibitory c oncentration <= NRG Trimethoprim/sulfamethoxazole susceptibi lity test by minimum inhibitoryconcentration <= NRG Ampicillin susceptibility test by minimum inhibitory c oncentration 16 NRG Tobramycin susceptibility test by minimum inhibitory c oncentration <= NRG Cefazolin susceptibility test by minimum inhibitory co ncentration <= NRG Ceftriaxone susceptibility test by minimum inhibitory concentration <= NRG Ampicillin/sulbactam susceptibility test by minimum inhibitory concentration I NRG Piperacillin/tazobactam susceptibility t est by minimum inhibitory concentration <= NRG Ciprofloxacin susceptibility test by minimum inhibitor y concentration <= NRG Meropenem susceptibility test by minimum inhibitory co ncentration <= NRG Nitrofurantoin susceptibility test by mi nimum inhibitory concentration <= NRG Aztreonam susceptibility test by minimum inhibitory co ncentration <= NRG Extended spectrum beta lactamase (ESBL) producing bacteria susceptibility test by minimum inhibitory concentration - [facility] [place] Blood lactic acid measurement (moles/vol ume) - 01/01/17 16:17 Blood lactic acid measurement (moles/volume) 1.12 mmol/L 0.50-2.00 Complete blood count (CBC) with automate d white blood cell (WBC) differential - 01/02/17 04:22 Blood leukocytes automated count (number/volume) 8.1 10*3/uL 4.3-11.0 Blood erythrocytes automated count (number/volume) 5.18 10*6/uL 4.35-5.85 Venous blood hemoglobin measurement (mass/volume) 14.6 g/dL 13.3-17.7 Blood hematocrit (volume fraction) 44 % 40-54 Automated erythrocyte mean corpuscular volume 85 [ foz_us] 80-99 Automated erythrocyte mean corpuscular h emoglobin (mass per erythrocyte) 28 pg 25-34 Automated erythrocyte mean corpuscular h emoglobin concentration measurement (mass/volume) 33 g/dL 32-36 Automated erythrocyte distribution width ratio 13. 6 % 10.0- 14.5 Automated blood platelet count (count/volume) 266 10*3/uL 130-400 Automated blood platelet mean volume measurement 10.1 [foz_us] 7.4-10.4 Automated blood neutrophils/100 leukocytes 58 % 42-75 Automated blood lymphocytes/100 leukocytes 33 % 12-44 Blood monocytes/100 leukocytes 6 % 0-12 Automated blood eosinophils/100 leukocytes 3 % 0-10 Automated blood basophils/100 leukocytes 0 % 0-10 Blood neutrophils automated count (number/volume) 4.7 10*3 1.8-7.8 Blood lymphocytes automated count (number/volume) 2.7 10*3 1.0-4.0 Blood monocytes automated count (number/volume) 0. 5 10*3 0.0-1.0 Automated eosinophil count 0.2 10*3/uL 0 .0-0.3 Automated blood basophil count (count/volume) 0.0 10*3/uL 0.0-0.1 Comprehensive metabolic panel - 01/02/17 04:27 Serum or plasma sodium measurement (moles/volume) 138 mmol/L 135-145 Serum or plasma potassium measurement (moles/volume) 3.5 mmol/L 3.6-5.0 Serum or plasma chloride measurement (moles/volume) 111 mmol/L 98-107 Carbon dioxide 17 mmol/L 21-32 Serum or plasma anion gap determination (moles/volume) 10 mmol/L 5-14 Serum or plasma urea nitrogen measurement (mass/volume ) 12 mg/dL 7-18 Serum or plasma creatinine measurement (mass/volume) 1.33 mg/dL 0.60-1.30 Serum or plasma urea nitrogen/creatinine mass ratio 9 0-20 Serum or plasma creatinine measurement w ith calculation of estimated glomerular filtration rate 57 NRG Serum or plasma glucose measurement (mass/volume) 93 mg/dL 70-105 Serum or plasma calcium measurement (mass/volume) 8.2 mg/dL 8.5-10.1 Serum or plasma total bilirubin measurement (mass/volu me) 1.0 mg/dL 0.1-1.0 Serum or plasma alkaline phosphatase renée surement (enzymatic activity/volume) 71 U/L 40-136 Serum or plasma aspartate aminotransfera se measurement (enzymatic activity/volume) 24 U/L 5-34 Serum or plasma alanine aminotransferase measurement (enzymatic activity/volume) 36 U/L 0-55 Serum or plasma protein measurement (mass/volume) 6.2 g/dL 6.4-8.2 Serum or plasma albumin measurement (mass/volume) 3.7 g/dL 3.2-4.5 Complete blood count (CBC) with automate d white blood cell (WBC) differential - 01/03/17 06:11 Blood leukocytes automated count (number/volume) 5.5 10*3/uL 4.3-11.0 Blood erythrocytes automated count (number/volume) 4.51 10*6/uL 4.35-5.85 Venous blood hemoglobin measurement (mass/volume) 12.9 g/dL 13.3-17.7 Blood hematocrit (volume fraction) 40 % 40-54 Automated erythrocyte mean corpuscular volume 88 [ foz_us] 80-99 Automated erythrocyte mean corpuscular h emoglobin (mass per erythrocyte) 29 pg 25-34 Automated erythrocyte mean corpuscular h emoglobin concentration measurement (mass/volume) 33 g/dL 32-36 Automated erythrocyte distribution width ratio 13. 6 % 10.0- 14.5 Automated blood platelet count (count/volume) 214 10*3/uL 130-400 Automated blood platelet mean volume measurement 10.2 [foz_us] 7.4-10.4 Automated blood neutrophils/100 leukocytes 53 % 42-75 Automated blood lymphocytes/100 leukocytes 36 % 12-44 Blood monocytes/100 leukocytes 8 % 0-12 Automated blood eosinophils/100 leukocytes 2 % 0-10 Automated blood basophils/100 leukocytes 0 % 0-10 Blood neutrophils automated count (number/volume) 2.9 10*3 1.8-7.8 Blood lymphocytes automated count (number/volume) 2.0 10*3 1.0-4.0 Blood monocytes automated count (number/volume) 0. 4 10*3 0.0-1.0 Automated eosinophil count 0.1 10*3/uL 0 .0-0.3 Automated blood basophil count (count/volume) 0.0 10*3/uL 0.0-0.1 Comprehensive metabolic panel - 01/03/17 06:11 Serum or plasma sodium measurement (moles/volume) 143 mmol/L 135-145 Serum or plasma potassium measurement (moles/volume) 4.4 mmol/L 3.6-5.0 Serum or plasma chloride measurement (moles/volume) 118 mmol/L 98-107 Carbon dioxide 19 mmol/L 21-32 Serum or plasma anion gap determination (moles/volume) 6 mmol/L 5-14 Serum or plasma urea nitrogen measurement (mass/volume ) 7 mg/dL 7-18 Serum or plasma creatinine measurement (mass/volume) 1.56 mg/dL 0.60-1.30 Serum or plasma urea nitrogen/creatinine mass ratio 4 0-20 Serum or plasma creatinine measurement w ith calculation of estimated glomerular filtration rate 47 NRG Serum or plasma glucose measurement (mass/volume) 77 mg/dL 70-105 Serum or plasma calcium measurement (mass/volume) 8.1 mg/dL 8.5-10.1 Serum or plasma total bilirubin measurement (mass/volu me) 0.4 mg/dL 0.1-1.0 Serum or plasma alkaline phosphatase renée surement (enzymatic activity/volume) 63 U/L 40-136 Serum or plasma aspartate aminotransfera se measurement (enzymatic activity/volume) 20 U/L 5-34 Serum or plasma alanine aminotransferase measurement (enzymatic activity/volume) 29 U/L 0-55 Serum or plasma protein measurement (mass/volume) 5.8 g/dL 6.4-8.2 Serum or plasma albumin measurement (mass/volume) 3.4 g/dL 3.2-4.5 Complete blood count (CBC) with automate d white blood cell (WBC) differential - 01/12/17 05:20 Blood leukocytes automated count (number/volume) 10.7 10*3/uL 4.3-11.0 Blood erythrocytes automated count (number/volume) 5.59 10*6/uL 4.35-5.85 Venous blood hemoglobin measurement (mass/volume) 15.9 g/dL 13.3-17.7 Blood hematocrit (volume fraction) 47 % 40-54 Automated erythrocyte mean corpuscular volume 84 [ foz_us] 80-99 Automated erythrocyte mean corpuscular h emoglobin (mass per erythrocyte) 28 pg 25-34 Automated erythrocyte mean corpuscular h emoglobin concentration measurement (mass/volume) 34 g/dL 32-36 Automated erythrocyte distribution width ratio 13. 6 % 10.0- 14.5 Automated blood platelet count (count/volume) 225 10*3/uL 130-400 Automated blood platelet mean volume measurement 10.5 [foz_us] 7.4-10.4 Automated blood neutrophils/100 leukocytes 79 % 42-75 Automated blood lymphocytes/100 leukocytes 14 % 12-44 Blood monocytes/100 leukocytes 6 % 0-12 Automated blood eosinophils/100 leukocytes 1 % 0-10 Automated blood basophils/100 leukocytes 0 % 0-10 Blood neutrophils automated count (number/volume) 8.5 10*3 1.8-7.8 Blood lymphocytes automated count (number/volume) 1.5 10*3 1.0-4.0 Blood monocytes automated count (number/volume) 0. 6 10*3 0.0-1.0 Automated eosinophil count 0.1 10*3/uL 0 .0-0.3 Automated blood basophil count (count/volume) 0.0 10*3/uL 0.0-0.1 Complete urinalysis with reflex to cultu re - 01/12/17 05:20 Urine color determination YELLOW NRG Urine clarity determination SLIGHTLY CLOUDY NRG Urine pH measurement by test strip 7 5-9 Specific gravity of urine by test strip 1.010 1.016-1.022 Urine protein assay by test strip, semi-quantitative 2+ NEGATIVE Urine glucose detection by automated test strip NE GATIVE NEGATIVE Erythrocytes detection in urine sediment by light micr oscopy 2+ NEGATIVE Urine ketones detection by automated test strip NE GATIVE NEGATIVE Urine nitrite detection by test strip POSITIVE NEGATIVE Urine total bilirubin detection by test strip NEGA TIVE NEGATIVE Urine urobilinogen measurement by automated test strip (mass/volume) NORMAL NORMAL Urine leukocyte esterase detection by dipstick 2+ NEGATIVE Automated urine sediment erythrocyte cou nt by microscopy (number/high power field) [HPF] NRG Automated urine sediment leukocyte count by microscopy (number/high power field) [HPF] NRG Bacteria detection in urine sediment by light microsco py FEW NRG Squamous epithelial cells detection in u rine sediment by light microscopy 2-5 NRG Crystals detection in urine sediment by light microsco py NONE NRG Casts detection in urine sediment by light microscopy NONE NRG Mucus detection in urine sediment by light microscopy LARGE NRG Complete urinalysis with reflex to culture YES NRG Comprehensive metabolic panel - 01/12/17 05:20 Serum or plasma sodium measurement (moles/volume) 140 mmol/L 135-145 Serum or plasma potassium measurement (moles/volume) 3.3 mmol/L 3.6-5.0 Serum or plasma chloride measurement (moles/volume) 109 mmol/L 98-107 Carbon dioxide 16 mmol/L 21-32 Serum or plasma anion gap determination (moles/volume) 15 mmol/L 5-14 Serum or plasma urea nitrogen measurement (mass/volume ) 14 mg/dL 7-18 Serum or plasma creatinine measurement (mass/volume) 0.97 mg/dL 0.60-1.30 Serum or plasma urea nitrogen/creatinine mass ratio 14 NRG Serum or plasma creatinine measurement w ith calculation of estimated glomerular filtration rate > NRG Serum or plasma glucose measurement (mass/volume) 121 mg/dL 70-105 Serum or plasma calcium measurement (mass/volume) 9.2 mg/dL 8.5-10.1 Serum or plasma total bilirubin measurement (mass/volu me) 0.5 mg/dL 0.1-1.0 Serum or plasma alkaline phosphatase renée surement (enzymatic activity/volume) 81 U/L 40-136 Serum or plasma aspartate aminotransfera se measurement (enzymatic activity/volume) 46 U/L 5-34 Serum or plasma alanine aminotransferase measurement (enzymatic activity/volume) 53 U/L 0-55 Serum or plasma protein measurement (mass/volume) 7.4 g/dL 6.4-8.2 Serum or plasma albumin measurement (mass/volume) 4.2 g/dL 3.2-4.5 Lipase - 01/12/17 05:20 Lipase 26 U/L 8-78 Bacterial urine culture - 01/12/17 05:20 Bacterial urine culture [id number] NRG COLONY COUNT 10,000/ML - 100,000/ML NRG FTX;REPORTABLE SENSITIVITY REPORTED 01/14 10:25 NRG Bacterial susceptibility panel - 7 05:20 Gentamicin susceptibility test by minimum inhibitory c oncentration S NRG Vancomycin susceptibility test by minimum inhibitory c oncentration 1 NRG Levofloxacin susceptibility test by minimum inhibitory concentration >= NRG Tetracycline susceptibility test by minimum inhibitory concentration >= NRG Ampicillin susceptibility test by minimum inhibitory c oncentration <= NRG Ciprofloxacin susceptibility test by minimum inhibitor y concentration R NRG Nitrofurantoin susceptibility test by mi nimum inhibitory concentration <= NRG Linezolid susceptibility test by minimum inhibitory co ncentration 2 NRG Bacterial susceptibility panel - 7 05:20 Oxacillin susceptibility test by minimum inhibitory co ncentration 0.5 NRG Gentamicin susceptibility test by minimum inhibitory c oncentration <= NRG Trimethoprim/sulfamethoxazole susceptibi lity test by minimum inhibitoryconcentration <= NRG Vancomycin susceptibility test by minimum inhibitory c oncentration <= NRG Levofloxacin susceptibility test by minimum inhibitory concentration <= NRG Rifampin susceptibility test by minimum inhibitory con centration <= NRG Tetracycline susceptibility test by minimum inhibitory concentration <= NRG Complete blood count (CBC) with automate d white blood cell (WBC) differential - 01/30/17 00:34 Blood leukocytes automated count (number/volume) 8.7 10*3/uL 4.3-11.0 Blood erythrocytes automated count (number/volume) 5.07 10*6/uL 4.35-5.85 Venous blood hemoglobin measurement (mass/volume) 14.4 g/dL 13.3-17.7 Blood hematocrit (volume fraction) 43 % 40-54 Automated erythrocyte mean corpuscular volume 85 [ foz_us] 80-99 Automated erythrocyte mean corpuscular h emoglobin (mass per erythrocyte) 28 pg 25-34 Automated erythrocyte mean corpuscular h emoglobin concentration measurement (mass/volume) 33 g/dL 32-36 Automated erythrocyte distribution width ratio 14. 1 % 10.0- 14.5 Automated blood platelet count (count/volume) 245 10*3/uL 130-400 Automated blood platelet mean volume measurement 10.7 [foz_us] 7.4-10.4 Automated blood neutrophils/100 leukocytes 75 % 42-75 Automated blood lymphocytes/100 leukocytes 17 % 12-44 Blood monocytes/100 leukocytes 7 % 0-12 Automated blood eosinophils/100 leukocytes 1 % 0-10 Automated blood basophils/100 leukocytes 0 % 0-10 Blood neutrophils automated count (number/volume) 6.5 10*3 1.8-7.8 Blood lymphocytes automated count (number/volume) 1.5 10*3 1.0-4.0 Blood monocytes automated count (number/volume) 0. 6 10*3 0.0-1.0 Automated eosinophil count 0.1 10*3/uL 0 .0-0.3 Automated blood basophil count (count/volume) 0.0 10*3/uL 0.0-0.1 Comprehensive metabolic panel - 01/30/17 00:34 Serum or plasma sodium measurement (moles/volume) 142 mmol/L 135-145 Serum or plasma potassium measurement (moles/volume) 3.3 mmol/L 3.6-5.0 Serum or plasma chloride measurement (moles/volume) 111 mmol/L 98-107 Carbon dioxide 19 mmol/L 21-32 Serum or plasma anion gap determination (moles/volume) 12 mmol/L 5-14 Serum or plasma urea nitrogen measurement (mass/volume ) 9 mg/dL 7-18 Serum or plasma creatinine measurement (mass/volume) 1.44 mg/dL 0.60-1.30 Serum or plasma urea nitrogen/creatinine mass ratio 6 NRG Serum or plasma creatinine measurement w ith calculation of estimated glomerular filtration rate 52 NRG Serum or plasma glucose measurement (mass/volume) 99 mg/dL 70-105 Serum or plasma calcium measurement (mass/volume) 8.5 mg/dL 8.5-10.1 Serum or plasma total bilirubin measurement (mass/volu me) 0.5 mg/dL 0.1-1.0 Serum or plasma alkaline phosphatase renée surement (enzymatic activity/volume) 69 U/L 40-136 Serum or plasma aspartate aminotransfera se measurement (enzymatic activity/volume) 15 U/L 5-34 Serum or plasma alanine aminotransferase measurement (enzymatic activity/volume) 32 U/L 0-55 Serum or plasma protein measurement (mass/volume) 6.8 g/dL 6.4-8.2 Serum or plasma albumin measurement (mass/volume) 3.9 g/dL 3.2-4.5 Magnesium - 01/30/17 00:34 Magnesium 2.0 mg/dL 1.8-2.4 Serum or plasma amylase measurement (enz ymatic activity/volume) - 01/30/17 00:34 Serum or plasma amylase measurement (enzymatic activit y/volume) 80 U/L 25-125 Lipase - 01/30/17 00:34 Lipase 28 U/L 8-78 Urine drug screening test - 01/30/17 00: 41 Urine phencyclidine detection by screening method NEGATIVE NEGATIVE Urine benzodiazepines detection by screening method POSITIVE NEGATIVE Urine cocaine detection NEGATIVE NEGATI VE Urine amphetamines detection by screening method N EGATIVE NEGATIVE Urine methamphetamine detection by screening method NEGATIVE NEGATIVE Urine cannabinoids detection by screening method N EGATIVE NEGATIVE Urine opiates detection by screening method NEGATI VE NEGATIVE Urine barbiturates detection NEGATIVE N EGATIVE Screening urine tricyclic antidepressants detection NEGATIVE NEGATIVE Urine methadone detection by screening method NEGA TIVE NEGATIVE Urine oxycodone detection NEGATIVE NEGA TIVE Urine propoxyphene detection NEGATIVE N EGATIVE Complete urinalysis with reflex to cultu re - 01/30/17 00:41 Urine color determination YELLOW NRG Urine clarity determination SLIGHTLY CLOUDY NRG Urine pH measurement by test strip 6.5 5-9 Specific gravity of urine by test strip 1.010 1.016-1.022 Urine protein assay by test strip, semi-quantitative 2+ NEGATIVE Urine glucose detection by automated test strip NE GATIVE NEGATIVE Erythrocytes detection in urine sediment by light micr oscopy 5+ NEGATIVE Urine ketones detection by automated test strip 1+ NEGATIVE Urine nitrite detection by test strip NEGATIVE NEGATIVE Urine total bilirubin detection by test strip NEGA TIVE NEGATIVE Urine urobilinogen measurement by automated test strip (mass/volume) NORMAL NORMAL Urine leukocyte esterase detection by dipstick 3+ NEGATIVE Automated urine sediment erythrocyte cou nt by microscopy (number/high power field) [HPF] NRG Automated urine sediment leukocyte count by microscopy (number/high power field) [HPF] NRG Bacteria detection in urine sediment by light microsco py FEW NRG Squamous epithelial cells detection in u rine sediment by light microscopy 0-2 NRG Crystals detection in urine sediment by light microsco py NONE NRG Casts detection in urine sediment by light microscopy NONE NRG Mucus detection in urine sediment by light microscopy NONE NRG Complete urinalysis with reflex to culture YES NRG Bacterial urine culture - 01/30/17 00:41 Bacterial urine culture [id number] NRG COLONY COUNT >100,000/ML NRG FTX;REPORTABLE SENSITIVITY REPORTED 01/31/17 11:25 NRG Bacterial susceptibility panel - 7 00:41 Oxacillin susceptibility test by minimum inhibitory co ncentration <= NRG Gentamicin susceptibility test by minimum inhibitory c oncentration <= NRG Trimethoprim/sulfamethoxazole susceptibi lity test by minimum inhibitoryconcentration <= NRG Vancomycin susceptibility test by minimum inhibitory c oncentration 1 NRG Levofloxacin susceptibility test by minimum inhibitory concentration <= NRG Rifampin susceptibility test by minimum inhibitory con centration <= NRG Tetracycline susceptibility test by minimum inhibitory concentration <= NRG Complete blood count (CBC) with automate d white blood cell (WBC) differential - 04/18/17 06:49 Blood leukocytes automated count (number/volume) 17.2 10*3/uL 4.3-11.0 Blood erythrocytes automated count (number/volume) 6.04 10*6/uL 4.35-5.85 Venous blood hemoglobin measurement (mass/volume) 17.1 g/dL 13.3-17.7 Blood hematocrit (volume fraction) 50 % 40-54 Automated erythrocyte mean corpuscular volume 82 [ foz_us] 80-99 Automated erythrocyte mean corpuscular h emoglobin (mass per erythrocyte) 28 pg 25-34 Automated erythrocyte mean corpuscular h emoglobin concentration measurement (mass/volume) 34 g/dL 32-36 Automated erythrocyte distribution width ratio 13. 7 % 10.0- 14.5 Automated blood platelet count (count/volume) 559 10*3/uL 130-400 Automated blood platelet mean volume measurement 10.2 [foz_us] 7.4-10.4 Automated blood neutrophils/100 leukocytes 77 % 42-75 Automated blood lymphocytes/100 leukocytes 17 % 12-44 Blood monocytes/100 leukocytes 6 % 0-12 Automated blood eosinophils/100 leukocytes 0 % 0-10 Automated blood basophils/100 leukocytes 0 % 0-10 Blood neutrophils automated count (number/volume) 13.3 10*3 1.8-7.8 Blood lymphocytes automated count (number/volume) 2.9 10*3 1.0-4.0 Blood monocytes automated count (number/volume) 0. 9 10*3 0.0-1.0 Automated eosinophil count 0.0 10*3/uL 0 .0-0.3 Automated blood basophil count (count/volume) 0.0 10*3/uL 0.0-0.1 Comprehensive metabolic panel - 04/18/17 06:49 Serum or plasma sodium measurement (moles/volume) 140 mmol/L 135-145 Serum or plasma potassium measurement (moles/volume) 3.3 mmol/L 3.6-5.0 Serum or plasma chloride measurement (moles/volume) 104 mmol/L 98-107 Carbon dioxide 21 mmol/L 21-32 Serum or plasma anion gap determination (moles/volume) 15 mmol/L 5-14 Serum or plasma urea nitrogen measurement (mass/volume ) 16 mg/dL 7-18 Serum or plasma creatinine measurement (mass/volume) 1.52 mg/dL 0.60-1.30 Serum or plasma urea nitrogen/creatinine mass ratio 11 NRG Serum or plasma creatinine measurement w ith calculation of estimated glomerular filtration rate 49 NRG Serum or plasma glucose measurement (mass/volume) 123 mg/dL 70-105 Serum or plasma calcium measurement (mass/volume) 9.8 mg/dL 8.5-10.1 Serum or plasma total bilirubin measurement (mass/volu me) 1.0 mg/dL 0.1-1.0 Serum or plasma alkaline phosphatase renée surement (enzymatic activity/volume) 93 U/L 40-136 Serum or plasma aspartate aminotransfera se measurement (enzymatic activity/volume) 39 U/L 5-34 Serum or plasma alanine aminotransferase measurement (enzymatic activity/volume) 57 U/L 0-55 Serum or plasma protein measurement (mass/volume) 8.7 g/dL 6.4-8.2 Serum or plasma albumin measurement (mass/volume) 4.8 g/dL 3.2-4.5 Serum or plasma amylase measurement (enz ymatic activity/volume) - 04/18/17 06:49 Serum or plasma amylase measurement (enzymatic activit y/volume) 114 U/L 25-125 Lipase - 04/18/17 06:49 Lipase 36 U/L 8-78 Blood manual differential performed dete ction - 04/18/17 06:49 Blood monocytes/100 leukocytes 7 % NRG Manual blood segmented neutrophils/100 leukocytes 81 % NRG Blood band neutrophils/100 leukocytes 0 % NRG Manual blood lymphocytes/100 leukocytes 6 % NRG Manual eosinophils/100 leukocytes in nose 1 % NRG Manual blood basophils/100 leukocytes 0 % NRG Blood lymphocytes variant/100 leukocytes 5 % NRG Blood erythrocyte morphology finding identification NORMAL NR Automated blood complete blood count (he mogram) panel - 04/25/17 08:23 Blood leukocytes automated count (number/volume) 7.0 10*3/uL 4.3-11.0 Blood erythrocytes automated count (number/volume) 5.15 10*6/uL 4.35-5.85 Venous blood hemoglobin measurement (mass/volume) 14.7 g/dL 13.3-17.7 Blood hematocrit (volume fraction) 43 % 40-54 Automated erythrocyte mean corpuscular volume 83 [ foz_us] 80-99 Automated erythrocyte mean corpuscular h emoglobin (mass per erythrocyte) 29 pg 25-34 Automated erythrocyte mean corpuscular h emoglobin concentration measurement (mass/volume) 34 g/dL 32-36 Automated erythrocyte distribution width ratio 13. 2 % 10.0- 14.5 Automated blood platelet count (count/volume) 279 10*3/uL 130-400 Automated blood platelet mean volume measurement 10.6 [foz_us] 7.4-10.4 Liver function panel (serum or plasma al k phos, alb, total and direct bili, total protein, ALT, AST) - 04/25/17 08:23 Serum or plasma total bilirubin measurement (mass/volu me) 0.3 mg/dL 0.1-1.0 Serum or plasma alkaline phosphatase renée surement (enzymatic activity/volume) 72 U/L 40-136 Serum or plasma aspartate aminotransfera se measurement (enzymatic activity/volume) 23 U/L 5-34 Serum or plasma alanine aminotransferase measurement (enzymatic activity/volume) 34 U/L 0-55 Serum or plasma protein measurement (mass/volume) 7.0 g/dL 6.4-8.2 Serum or plasma albumin measurement (mass/volume) 4.0 g/dL 3.2-4.5 Bilirubin direct 0.2 mg/dL 0.0-0.3 Serum or plasma indirect bilirubin measurement (mass/v olume) 0.1 mg/dL NRG Whole blood basic metabolic panel - 04/16 08:23 Serum or plasma sodium measurement (moles/volume) 138 mmol/L 135-145 Serum or plasma potassium measurement (moles/volume) 2.9 mmol/L 3.6-5.0 Serum or plasma chloride measurement (moles/volume) 103 mmol/L 98-107 Carbon dioxide 25 mmol/L 21-32 Serum or plasma anion gap determination (moles/volume) 10 mmol/L 5-14 Serum or plasma urea nitrogen measurement (mass/volume ) 18 mg/dL 7-18 Serum or plasma creatinine measurement (mass/volume) 1.28 mg/dL 0.60-1.30 Serum or plasma urea nitrogen/creatinine mass ratio 14 NRG Serum or plasma creatinine measurement w ith calculation of estimated glomerular filtration rate 59 NRG Serum or plasma glucose measurement (mass/volume) 122 mg/dL 70-105 Serum or plasma calcium measurement (mass/volume) 9.0 mg/dL 8.5-10.1 Serum or plasma ethanol measurement (mas s/volume) - 04/25/17 08:23 Serum or plasma ethanol measurement (mass/volume) < mg/dL <10 [id number] - 04/25/17 08:23 [id number] SPECIMEN AVAILABLE NRG Complete urinalysis with reflex to cultu re - 04/25/17 09:17 Urine color determination YELLOW NRG Urine clarity determination SLIGHTLY CLOUDY NRG Urine pH measurement by test strip 6.5 5-9 Specific gravity of urine by test strip 1.010 1.016-1.022 Urine protein assay by test strip, semi-quantitative 1+ NEGATIVE Urine glucose detection by automated test strip NE GATIVE NEGATIVE Erythrocytes detection in urine sediment by light micr oscopy 4+ NEGATIVE Urine ketones detection by automated test strip NE GATIVE NEGATIVE Urine nitrite detection by test strip NEGATIVE NEGATIVE Urine total bilirubin detection by test strip NEGA TIVE NEGATIVE Urine urobilinogen measurement by automated test strip (mass/volume) NORMAL NORMAL Urine leukocyte esterase detection by dipstick 3+ NEGATIVE Automated urine sediment erythrocyte cou nt by microscopy (number/high power field) [HPF] NRG Automated urine sediment leukocyte count by microscopy (number/high power field) > [HPF] NRG Bacteria detection in urine sediment by light microsco py FEW NRG Crystals detection in urine sediment by light microsco py NONE NRG Casts detection in urine sediment by light microscopy NONE NRG Mucus detection in urine sediment by light microscopy NEGATIVE NRG Complete urinalysis with reflex to culture YES NRG Bacterial urine culture - 04/25/17 09:17 Bacterial urine culture [id number] NRG COLONY COUNT 10,000/ML - 100,000/ML NRG FTX;REPORTABLE SENSITIVITY REPORTED 04/27/17 8:40 NRG Bacterial susceptibility panel - 7 09:17 Oxacillin susceptibility test by minimum inhibitory co ncentration 0.5 NRG Gentamicin susceptibility test by minimum inhibitory c oncentration <= NRG Trimethoprim/sulfamethoxazole susceptibi lity test by minimum inhibitoryconcentration <= NRG Vancomycin susceptibility test by minimum inhibitory c oncentration 1 NRG Levofloxacin susceptibility test by minimum inhibitory concentration <= NRG Rifampin susceptibility test by minimum inhibitory con centration <= NRG Tetracycline susceptibility test by minimum inhibitory concentration <= NRG Bacterial susceptibility panel - 7 09:17 Gentamicin susceptibility test by minimum inhibitory c oncentration <= NRG Trimethoprim/sulfamethoxazole susceptibi lity test by minimum inhibitoryconcentration <= NRG Tobramycin susceptibility test by minimum inhibitory c oncentration <= NRG Cefazolin susceptibility test by minimum inhibitory co ncentration R NRG Piperacillin/tazobactam susceptibility t est by minimum inhibitory concentration <= NRG Ciprofloxacin susceptibility test by minimum inhibitor y concentration <= NRG Meropenem susceptibility test by minimum inhibitory co ncentration <= NRG Nitrofurantoin susceptibility test by mi nimum inhibitory concentration 64 NRG Aztreonam susceptibility test by minimum inhibitory co ncentration <= NRG Cefepime susceptibility test by minimum inhibitory con centration <= NRG Complete blood count (CBC) with automate d white blood cell (WBC) differential - 01/17/18 00:54 Blood leukocytes automated count (number/volume) 9.1 10*3/uL 4.3-11.0 Blood erythrocytes automated count (number/volume) 5.41 10*6/uL 4.35-5.85 Venous blood hemoglobin measurement (mass/volume) 15.0 g/dL 13.3-17.7 Blood hematocrit (volume fraction) 42 % 40-54 Automated erythrocyte mean corpuscular volume 78 [ foz_us] 80-99 Automated erythrocyte mean corpuscular h emoglobin (mass per erythrocyte) 28 pg 25-34 Automated erythrocyte mean corpuscular h emoglobin concentration measurement (mass/volume) 36 g/dL 32-36 Automated erythrocyte distribution width ratio 14. 5 % 10.0- 14.5 Automated blood platelet count (count/volume) 334 10*3/uL 130-400 Automated blood platelet mean volume measurement 10.6 [foz_us] 7.4-10.4 Automated blood neutrophils/100 leukocytes 64 % 42-75 Automated blood lymphocytes/100 leukocytes 26 % 12-44 Blood monocytes/100 leukocytes 9 % 0-12 Automated blood eosinophils/100 leukocytes 1 % 0-10 Automated blood basophils/100 leukocytes 0 % 0-10 Blood neutrophils automated count (number/volume) 5.8 10*3 1.8-7.8 Blood lymphocytes automated count (number/volume) 2.4 10*3 1.0-4.0 Blood monocytes automated count (number/volume) 0. 8 10*3 0.0-1.0 Automated eosinophil count 0.1 10*3/uL 0 .0-0.3 Automated blood basophil count (count/volume) 0.0 10*3/uL 0.0-0.1 Complete urinalysis with reflex to cultu re - 01/17/18 00:54 Urine color determination YELLOW NRG Urine clarity determination VERY CLOUDY NRG Urine pH measurement by test strip 8 5-9 Specific gravity of urine by test strip 1.010 1.016-1.022 Urine protein assay by test strip, semi-quantitative 2+ NEGATIVE Urine glucose detection by automated test strip NE GATIVE NEGATIVE Erythrocytes detection in urine sediment by light micr oscopy 4+ NEGATIVE Urine ketones detection by automated test strip NE GATIVE NEGATIVE Urine nitrite detection by test strip NEGATIVE NEGATIVE Urine total bilirubin detection by test strip NEGA TIVE NEGATIVE Urine urobilinogen measurement by automated test strip (mass/volume) NORMAL NORMAL Urine leukocyte esterase detection by dipstick 3+ NEGATIVE Automated urine sediment erythrocyte cou nt by microscopy (number/high power field) [HPF] NRG Automated urine sediment leukocyte count by microscopy (number/high power field) [HPF] NRG Bacteria detection in urine sediment by light microsco py LARGE NRG Squamous epithelial cells detection in u rine sediment by light microscopy RARE NRG Crystals detection in urine sediment by light microsco py NONE NRG Casts detection in urine sediment by light microscopy NONE NRG Mucus detection in urine sediment by light microscopy SMALL NRG Complete urinalysis with reflex to culture YES NRG Comprehensive metabolic panel - 01/17/18 00:54 Serum or plasma sodium measurement (moles/volume) 135 mmol/L 135-145 Serum or plasma potassium measurement (moles/volume) 3.3 mmol/L 3.6-5.0 Serum or plasma chloride measurement (moles/volume) 104 mmol/L 98-107 Carbon dioxide 14 mmol/L 21-32 Serum or plasma anion gap determination (moles/volume) 17 mmol/L 5-14 Serum or plasma urea nitrogen measurement (mass/volume ) 23 mg/dL 7-18 Serum or plasma creatinine measurement (mass/volume) 1.75 mg/dL 0.60-1.30 Serum or plasma urea nitrogen/creatinine mass ratio 13 NRG Serum or plasma creatinine measurement w ith calculation of estimated glomerular filtration rate 41 NRG Serum or plasma glucose measurement (mass/volume) 88 mg/dL 70-105 Serum or plasma calcium measurement (mass/volume) 9.2 mg/dL 8.5-10.1 Serum or plasma total bilirubin measurement (mass/volu me) 0.6 mg/dL 0.1-1.0 Serum or plasma alkaline phosphatase renée surement (enzymatic activity/volume) 83 U/L 40-136 Serum or plasma aspartate aminotransfera se measurement (enzymatic activity/volume) 43 U/L 5-34 Serum or plasma alanine aminotransferase measurement (enzymatic activity/volume) 47 U/L 0-55 Serum or plasma protein measurement (mass/volume) 7.3 g/dL 6.4-8.2 Serum or plasma albumin measurement (mass/volume) 4.3 g/dL 3.2-4.5 PT panel in platelet poor plasma by coag ulation assay - 01/17/18 00:54 Prothrombin time (PT) in platelet poor plasma by coagu lation assay 13.8 s 12.2-14.7 INR in platelet poor plasma or blood by coagulation as say 1.1 0.8-1.4 Activated partial thromboplastin time (a PTT) in platelet poor plasma bycoagulation assay - 01/17/18 00:54 Activated partial thromboplastin time (a PTT) in platelet poor plasma bycoagulation assay 26 s 24-35 Bacterial urine culture - 01/17/18 00:54 Bacterial urine culture SEE COMMEN NRG COLONY COUNT . NRG FTX;REPORTABLE RML SUSCEPTIBILITY REPORTED AT 0905 , NR FREE TEXT ENTRY 2 01-19-18 NR RML Sensitivity Panel - 01/17/18 00:54 Gentamicin susceptibility test by minimum inhibitory c oncentration <= NRG Trimethoprim/sulfamethoxazole susceptibi lity test by minimum inhibitoryconcentration <= NRG Levofloxacin susceptibility test by minimum inhibitory concentration <= NRG Ampicillin susceptibility test by minimum inhibitory c oncentration > NRG Cefazolin susceptibility test by minimum inhibitory co ncentration 2 NRG Ceftriaxone susceptibility test by minimum inhibitory concentration <= NRG Ciprofloxacin susceptibility test by minimum inhibitor y concentration <= NRG Meropenem susceptibility test by minimum inhibitory co ncentration <= NRG Nitrofurantoin susceptibility test by mi nimum inhibitory concentration > NRG Amoxicillin and clavulanate potassium susc PEPE <= NRG Bacterial blood culture - 01/17/18 01:00 Bacterial blood culture NG NRG Blood lactic acid measurement (moles/vol ume) - 01/17/18 01:02 Blood lactic acid measurement (moles/volume) 2.54 mmol/L 0.50-2.00 Bacterial blood culture - 01/17/18 01:15 Bacterial blood culture NG NRG Complete blood count (CBC) with automate d white blood cell (WBC) differential - 01/17/18 06:20 Blood leukocytes automated count (number/volume) 8.7 10*3/uL 4.3-11.0 Blood erythrocytes automated count (number/volume) 5.04 10*6/uL 4.35-5.85 Venous blood hemoglobin measurement (mass/volume) 14.0 g/dL 13.3-17.7 Blood hematocrit (volume fraction) 40 % 40-54 Automated erythrocyte mean corpuscular volume 79 [ foz_us] 80-99 Automated erythrocyte mean corpuscular h emoglobin (mass per erythrocyte) 28 pg 25-34 Automated erythrocyte mean corpuscular h emoglobin concentration measurement (mass/volume) 35 g/dL 32-36 Automated erythrocyte distribution width ratio 14. 5 % 10.0- 14.5 Automated blood platelet count (count/volume) 278 10*3/uL 130-400 Automated blood platelet mean volume measurement 10.4 [foz_us] 7.4-10.4 Automated blood neutrophils/100 leukocytes 70 % 42-75 Automated blood lymphocytes/100 leukocytes 22 % 12-44 Blood monocytes/100 leukocytes 8 % 0-12 Automated blood eosinophils/100 leukocytes 1 % 0-10 Automated blood basophils/100 leukocytes 0 % 0-10 Blood neutrophils automated count (number/volume) 6.1 10*3 1.8-7.8 Blood lymphocytes automated count (number/volume) 1.9 10*3 1.0-4.0 Blood monocytes automated count (number/volume) 0. 7 10*3 0.0-1.0 Automated eosinophil count 0.0 10*3/uL 0 .0-0.3 Automated blood basophil count (count/volume) 0.0 10*3/uL 0.0-0.1 Blood lactic acid measurement (moles/vol ume) - 01/17/18 06:20 Blood lactic acid measurement (moles/volume) 1.54 mmol/L 0.50-2.00 Whole blood basic metabolic panel - 11/01 06:20 Serum or plasma sodium measurement (moles/volume) 135 mmol/L 135-145 Serum or plasma potassium measurement (moles/volume) 3.6 mmol/L 3.6-5.0 Serum or plasma chloride measurement (moles/volume) 105 mmol/L 98-107 Carbon dioxide 17 mmol/L 21-32 Serum or plasma anion gap determination (moles/volume) 13 mmol/L 5-14 Serum or plasma urea nitrogen measurement (mass/volume ) 22 mg/dL 7-18 Serum or plasma creatinine measurement (mass/volume) 1.55 mg/dL 0.60-1.30 Serum or plasma urea nitrogen/creatinine mass ratio 14 NRG Serum or plasma creatinine measurement w ith calculation of estimated glomerular filtration rate 48 NRG Serum or plasma glucose measurement (mass/volume) 98 mg/dL 70-105 Serum or plasma calcium measurement (mass/volume) 8.5 mg/dL 8.5-10.1 Complete blood count (CBC) with automate d white blood cell (WBC) differential - 01/18/18 05:51 Blood leukocytes automated count (number/volume) 9.9 10*3/uL 4.3-11.0 Blood erythrocytes automated count (number/volume) 5.37 10*6/uL 4.35-5.85 Venous blood hemoglobin measurement (mass/volume) 14.5 g/dL 13.3-17.7 Blood hematocrit (volume fraction) 41 % 40-54 Automated erythrocyte mean corpuscular volume 77 [ foz_us] 80-99 Automated erythrocyte mean corpuscular h emoglobin (mass per erythrocyte) 27 pg 25-34 Automated erythrocyte mean corpuscular h emoglobin concentration measurement (mass/volume) 35 g/dL 32-36 Automated erythrocyte distribution width ratio 14. 3 % 10.0- 14.5 Automated blood platelet count (count/volume) 328 10*3/uL 130-400 Automated blood platelet mean volume measurement 10.5 [foz_us] 7.4-10.4 Automated blood neutrophils/100 leukocytes 83 % 42-75 Automated blood lymphocytes/100 leukocytes 12 % 12-44 Blood monocytes/100 leukocytes 5 % 0-12 Automated blood eosinophils/100 leukocytes 0 % 0-10 Automated blood basophils/100 leukocytes 0 % 0-10 Blood neutrophils automated count (number/volume) 8.2 10*3 1.8-7.8 Blood lymphocytes automated count (number/volume) 1.2 10*3 1.0-4.0 Blood monocytes automated count (number/volume) 0. 5 10*3 0.0-1.0 Automated eosinophil count 0.0 10*3/uL 0 .0-0.3 Automated blood basophil count (count/volume) 0.0 10*3/uL 0.0-0.1 Whole blood basic metabolic panel - 12/01 05:51 Serum or plasma sodium measurement (moles/volume) 134 mmol/L 135-145 Serum or plasma potassium measurement (moles/volume) 3.9 mmol/L 3.6-5.0 Serum or plasma chloride measurement (moles/volume) 103 mmol/L 98-107 Carbon dioxide 19 mmol/L 21-32 Serum or plasma anion gap determination (moles/volume) 12 mmol/L 5-14 Serum or plasma urea nitrogen measurement (mass/volume ) 11 mg/dL 7-18 Serum or plasma creatinine measurement (mass/volume) 1.04 mg/dL 0.60-1.30 Serum or plasma urea nitrogen/creatinine mass ratio 11 NRG Serum or plasma creatinine measurement w ith calculation of estimated glomerular filtration rate > NRG Serum or plasma glucose measurement (mass/volume) 120 mg/dL 70-105 Serum or plasma calcium measurement (mass/volume) 9.3 mg/dL 8.5-10.1 Magnesium - 01/18/18 05:51 Magnesium 1.8 mg/dL 1.8-2.4 PDM - 09 PANEL (PROFILE 1) - 04/02/18 10 :07 Prescribed Drug 1 Oxycodone NRG Creatinine 130.7 mg/dL > or = 20.0 pH 7.04 4.5 - 9.0 Oxidant POSITIVE mcg/mL <200 Amphetamines NEGATIVE ng/mL <500 medMATCH Amphetamines CONSISTENT NRG Benzodiazepines NEGATIVE ng/mL <100 medMATCH Benzodiazepines CONSISTENT NRG Marijuana Metabolite NEGATIVE ng/mL <20 medMATCH Marijuana Metab CONSISTENT NRG Cocaine Metabolite NEGATIVE ng/mL <150 medMATCH Cocaine Metab CONSISTENT NRG Opiates NEGATIVE CONFIRMED ng/mL <100 Oxycodone POSITIVE ng/mL <100 COMMENT NRG Codeine NEGATIVE ng/mL <50 medMATCH Codeine CONSISTENT NRG Hydrocodone NEGATIVE ng/mL <50 medMATCH Hydrocodone CONSISTENT NRG Hydromorphone NEGATIVE ng/mL <50 medMATCH Hydromorphone CONSISTENT NRG Morphine NEGATIVE ng/mL <50 medMATCH Morphine CONSISTENT NRG Norhydrocodone NEGATIVE ng/mL <50 medMATCH Norhydrocodone CONSISTENT NRG Prescribed Drug 2 Lyrica(TM) NRG Prescribed Drug 3 Percocet(TM) NRG Abnormal Specimen Validity Test: NRG Noroxycodone >17468 ng/mL <50 medMATCH Noroxycodone CONSISTENT NRG Oxycodone 39381 ng/mL <50 medMATCH Oxycodone CONSISTENT NRG Oxymorphone 42228 ng/mL <50 medMATCH Oxymorphone CONSISTENT NRG Barbiturates NEGATIVE ng/mL <300 medMATCH Barbiturates CONSISTENT NRG Methadone Metabolite NEGATIVE ng/mL <100 medMATCH Methadone Metab CONSISTENT NRG Phencyclidine NEGATIVE ng/mL <25 medMATCH Phencyclidine CONSISTENT NRG Comprehensive Metabolic Panel - 04/09/18 12:20 Albumin 4.3 g/dL 3.6-5.1 ALP 90 U/L 35-130 ALT 54 U/L 6-45 Anion Gap 14 6-14 AST 63 U/L 2-40 BUN 15 mg/dL 5-25 Calcium 9.2 mg/dL 8.3-10.4 Chloride 105 mmol/L 95-114 CO2 23 mEq/L 22-33 Creat 1.02 mg/dL 0.50-1.50 eGFR 77 mL/min/1.73m2 >59 Globulin 2.9 g/dL 2.3-3.5 Glucose 95 mg/dL 70-110 Osmo 286 280-295 Potassium 4.0 mmol/L 3.5-5.3 Sodium 138 mmol/L 134-148 TBil 0.7 mg/dL 0.2-1.2 TP 7.2 g/dL 6.0-8.3 Surgical Pathology - 04/16/18 11:44 Surg Path Sent to [facility] Complete blood count (CBC) with automate d white blood cell (WBC) differential - 06/09/18 18:12 Blood leukocytes automated count (number/volume) 14.4 10*3/uL 4.3-11.0 Blood erythrocytes automated count (number/volume) 5.73 10*6/uL 4.35-5.85 Venous blood hemoglobin measurement (mass/volume) 15.8 g/dL 13.3-17.7 Blood hematocrit (volume fraction) 44 % 40-54 Automated erythrocyte mean corpuscular volume 78 [ foz_us] 80-99 Automated erythrocyte mean corpuscular h emoglobin (mass per erythrocyte) 28 pg 25-34 Automated erythrocyte mean corpuscular h emoglobin concentration measurement (mass/volume) 36 g/dL 32-36 Automated erythrocyte distribution width ratio 15. 9 % 10.0- 14.5 Automated blood platelet count (count/volume) 399 10*3/uL 130-400 Automated blood platelet mean volume measurement 10.5 [foz_us] 7.4-10.4 Automated blood neutrophils/100 leukocytes 81 % 42-75 Automated blood lymphocytes/100 leukocytes 13 % 12-44 Blood monocytes/100 leukocytes 5 % 0-12 Automated blood eosinophils/100 leukocytes 1 % 0-10 Automated blood basophils/100 leukocytes 0 % 0-10 Blood neutrophils automated count (number/volume) 11.6 10*3 1.8-7.8 Blood lymphocytes automated count (number/volume) 1.9 10*3 1.0-4.0 Blood monocytes automated count (number/volume) 0. 7 10*3 0.0-1.0 Automated eosinophil count 0.1 10*3/uL 0 .0-0.3 Automated blood basophil count (count/volume) 0.0 10*3/uL 0.0-0.1 Comprehensive metabolic panel - 06/09/18 18:12 Serum or plasma sodium measurement (moles/volume) 139 mmol/L 135-145 Serum or plasma potassium measurement (moles/volume) 3.9 mmol/L 3.6-5.0 Serum or plasma chloride measurement (moles/volume) 108 mmol/L 98-107 Carbon dioxide 14 mmol/L 21-32 Serum or plasma anion gap determination (moles/volume) 17 mmol/L 5-14 Serum or plasma urea nitrogen measurement (mass/volume ) 18 mg/dL 7-18 Serum or plasma creatinine measurement (mass/volume) 1.30 mg/dL 0.60-1.30 Serum or plasma urea nitrogen/creatinine mass ratio 14 NRG Serum or plasma creatinine measurement w ith calculation of estimated glomerular filtration rate 58 NRG Serum or plasma glucose measurement (mass/volume) 122 mg/dL 70-105 Serum or plasma calcium measurement (mass/volume) 10.3 mg/dL 8.5-10.1 Serum or plasma total bilirubin measurement (mass/volu me) 1.3 mg/dL 0.1-1.0 Serum or plasma alkaline phosphatase renée surement (enzymatic activity/volume) 110 U/L 40-136 Serum or plasma aspartate aminotransfera se measurement (enzymatic activity/volume) 43 U/L 5-34 Serum or plasma alanine aminotransferase measurement (enzymatic activity/volume) 46 U/L 0-55 Serum or plasma protein measurement (mass/volume) 8.8 g/dL 6.4-8.2 Serum or plasma albumin measurement (mass/volume) 4.7 g/dL 3.2-4.5 Magnesium - 06/09/18 18:12 Magnesium 2.4 mg/dL 1.8-2.4 Lipase - 06/09/18 18:12 Lipase 32 U/L 8-78 Serum or plasma C reactive protein measu rement (mass/volume) - 06/09/18 18:12 Serum or plasma C reactive protein measurement (mass/v olume) 0.72 mg/dL 0.00-0.50 Urine drug screening test - 06/09/18 19: 03 Urine phencyclidine detection by screening method NEGATIVE NEGATIVE Urine benzodiazepines detection by screening method NEGATIVE NEGATIVE Urine cocaine detection NEGATIVE NEGATI VE Urine amphetamines detection by screening method N EGATIVE NEGATIVE Urine methamphetamine detection by screening method NEGATIVE NEGATIVE Urine cannabinoids detection by screening method N EGATIVE NEGATIVE Urine opiates detection by screening method POSITI VE NEGATIVE Urine barbiturates detection NEGATIVE N EGATIVE Screening urine tricyclic antidepressants detection NEGATIVE NEGATIVE Urine methadone detection by screening method NEGA TIVE NEGATIVE Urine oxycodone detection NEGATIVE NEGA TIVE Urine propoxyphene detection NEGATIVE N EGATIVE Complete urinalysis with reflex to cultu re - 06/09/18 19:03 Urine color determination YELLOW NRG Urine clarity determination VERY CLOUDY NRG Urine pH measurement by test strip 6 5-9 Specific gravity of urine by test strip 1.010 1.016-1.022 Urine protein assay by test strip, semi-quantitative 3+ NEGATIVE Urine glucose detection by automated test strip NE GATIVE NEGATIVE Erythrocytes detection in urine sediment by light micr oscopy 2+ NEGATIVE Urine ketones detection by automated test strip 1+ NEGATIVE Urine nitrite detection by test strip NEGATIVE NEGATIVE Urine total bilirubin detection by test strip NEGA TIVE NEGATIVE Urine urobilinogen measurement by automated test strip (mass/volume) NORMAL NORMAL Urine leukocyte esterase detection by dipstick 3+ NEGATIVE Automated urine sediment erythrocyte cou nt by microscopy (number/high power field) NONE NRG Automated urine sediment leukocyte count by microscopy (number/high power field) [HPF] NRG Bacteria detection in urine sediment by light microsco py LARGE NRG Squamous epithelial cells detection in u rine sediment by light microscopy 5-10 NRG Crystals detection in urine sediment by light microsco py PRESENT NRG Casts detection in urine sediment by light microscopy NONE NRG Mucus detection in urine sediment by light microscopy NEGATIVE NRG Complete urinalysis with reflex to culture YES NRG Amorphous sediment detection in urine sediment by ligh t microscopy MOD FLORES URATES NRG Bacterial urine culture - 06/09/18 19:03 Bacterial urine culture [id number] NRG COLONY COUNT >100,000/ML NRG FTX;REPORTABLE RML FINAL REPORT WITH SENSITIVITIES NRG FREE TEXT ENTRY 2 SENT 06/12/18 09:05 N RG FREE TEXT ENTRY 3 RML SENT ID REPORTS 06/11 14:05 NRG RML Sensitivity Panel - 06/09/18 19:03 Gentamicin susceptibility test by minimum inhibitory c oncentration <= NRG Trimethoprim/sulfamethoxazole susceptibi lity test by minimum inhibitoryconcentration <= NRG Levofloxacin susceptibility test by minimum inhibitory concentration <= NRG Ampicillin susceptibility test by minimum inhibitory c oncentration R NRG Cefazolin susceptibility test by minimum inhibitory co ncentration <= NRG Ceftriaxone susceptibility test by minimum inhibitory concentration <= NRG Ciprofloxacin susceptibility test by minimum inhibitor y concentration <= NRG Meropenem susceptibility test by minimum inhibitory co ncentration <= NRG Nitrofurantoin susceptibility test by mi nimum inhibitory concentration 64 NRG Amoxicillin and clavulanate potassium susc PEPE <= NRG RML Sensitivity Panel - 06/09/18 19:03 Gentamicin susceptibility test by minimum inhibitory c oncentration <= NRG Trimethoprim/sulfamethoxazole susceptibi lity test by minimum inhibitoryconcentration <= NRG Levofloxacin susceptibility test by minimum inhibitory concentration <= NRG Ampicillin susceptibility test by minimum inhibitory c oncentration > NRG Cefazolin susceptibility test by minimum inhibitory co ncentration 4 NRG Ceftriaxone susceptibility test by minimum inhibitory concentration <= NRG Ciprofloxacin susceptibility test by minimum inhibitor y concentration <= NRG Meropenem susceptibility test by minimum inhibitory co ncentration <= NRG Nitrofurantoin susceptibility test by mi nimum inhibitory concentration <= NRG Amoxicillin and clavulanate potassium susc PEPE = NRG Blood lactic acid measurement (moles/vol ume) - 06/09/18 19:28 Blood lactic acid measurement (moles/volume) 1.70 mmol/L 0.50-2.00 Bacterial blood culture - 06/09/18 19:28 QUANTITY OF GROWTH . NRG Bacterial blood culture SEE REPORT NRG Bacterial blood culture - 06/09/18 19:48 Bacterial blood culture NG NRG C DIFFICILE AG + TOXIN A/B. - 06/10/18 0 3:05 RESULTS NEGATIVE FOR ANTIGEN AND TOXIN A/B NRG Complete blood count (CBC) with automate d white blood cell (WBC) differential - 06/10/18 05:40 Blood leukocytes automated count (number/volume) 14.1 10*3/uL 4.3-11.0 Blood erythrocytes automated count (number/volume) 5.26 10*6/uL 4.35-5.85 Venous blood hemoglobin measurement (mass/volume) 14.5 g/dL 13.3-17.7 Blood hematocrit (volume fraction) 42 % 40-54 Automated erythrocyte mean corpuscular volume 79 [ foz_us] 80-99 Automated erythrocyte mean corpuscular h emoglobin (mass per erythrocyte) 28 pg 25-34 Automated erythrocyte mean corpuscular h emoglobin concentration measurement (mass/volume) 35 g/dL 32-36 Automated erythrocyte distribution width ratio 15. 1 % 10.0- 14.5 Automated blood platelet count (count/volume) 327 10*3/uL 130-400 Automated blood platelet mean volume measurement 10.8 [foz_us] 7.4-10.4 Automated blood neutrophils/100 leukocytes 85 % 42-75 Automated blood lymphocytes/100 leukocytes 10 % 12-44 Blood monocytes/100 leukocytes 5 % 0-12 Automated blood eosinophils/100 leukocytes 0 % 0-10 Automated blood basophils/100 leukocytes 0 % 0-10 Blood neutrophils automated count (number/volume) 12.1 10*3 1.8-7.8 Blood lymphocytes automated count (number/volume) 1.4 10*3 1.0-4.0 Blood monocytes automated count (number/volume) 0. 7 10*3 0.0-1.0 Automated eosinophil count 0.0 10*3/uL 0 .0-0.3 Automated blood basophil count (count/volume) 0.0 10*3/uL 0.0-0.1 Blood manual differential performed dete ction - 06/10/18 05:40 Blood monocytes/100 leukocytes 6 % NRG Manual blood segmented neutrophils/100 leukocytes 82 % NRG Blood band neutrophils/100 leukocytes 0 % NRG Manual blood lymphocytes/100 leukocytes 8 % NRG Manual eosinophils/100 leukocytes in nose 0 % NRG Manual blood basophils/100 leukocytes 0 % NRG Blood lymphocytes variant/100 leukocytes 4 % NRG Blood anisocytosis detection by light microscopy [facility] [place] Comprehensive metabolic panel - 06/10/18 05:40 Serum or plasma sodium measurement (moles/volume) 139 mmol/L 135-145 Serum or plasma potassium measurement (moles/volume) 3.4 mmol/L 3.6-5.0 Serum or plasma chloride measurement (moles/volume) 107 mmol/L 98-107 Carbon dioxide 16 mmol/L 21-32 Serum or plasma anion gap determination (moles/volume) 16 mmol/L 5-14 Serum or plasma urea nitrogen measurement (mass/volume ) 17 mg/dL 7-18 Serum or plasma creatinine measurement (mass/volume) 1.33 mg/dL 0.60-1.30 Serum or plasma urea nitrogen/creatinine mass ratio 13 NRG Serum or plasma creatinine measurement w ith calculation of estimated glomerular filtration rate 57 NRG Serum or plasma glucose measurement (mass/volume) 131 mg/dL 70-105 Serum or plasma calcium measurement (mass/volume) 9.4 mg/dL 8.5-10.1 Serum or plasma total bilirubin measurement (mass/volu me) 1.4 mg/dL 0.1-1.0 Serum or plasma alkaline phosphatase renée surement (enzymatic activity/volume) 94 U/L 40-136 Serum or plasma aspartate aminotransfera se measurement (enzymatic activity/volume) 24 U/L 5-34 Serum or plasma alanine aminotransferase measurement (enzymatic activity/volume) 33 U/L 0-55 Serum or plasma protein measurement (mass/volume) 7.4 g/dL 6.4-8.2 Serum or plasma albumin measurement (mass/volume) 4.3 g/dL 3.2-4.5 CALCIUM CORRECTED 9.2 mg/dL 8.5-10.1 Complete blood count (CBC) with automate d white blood cell (WBC) differential - 06/11/18 06:15 Blood leukocytes automated count (number/volume) 9.2 10*3/uL 4.3-11.0 Blood erythrocytes automated count (number/volume) 5.08 10*6/uL 4.35-5.85 Venous blood hemoglobin measurement (mass/volume) 13.9 g/dL 13.3-17.7 Blood hematocrit (volume fraction) 40 % 40-54 Automated erythrocyte mean corpuscular volume 80 [ foz_us] 80-99 Automated erythrocyte mean corpuscular h emoglobin (mass per erythrocyte) 27 pg 25-34 Automated erythrocyte mean corpuscular h emoglobin concentration measurement (mass/volume) 34 g/dL 32-36 Automated erythrocyte distribution width ratio 15. 0 % 10.0- 14.5 Automated blood platelet count (count/volume) 262 10*3/uL 130-400 Automated blood platelet mean volume measurement 10.7 [foz_us] 7.4-10.4 Automated blood neutrophils/100 leukocytes 75 % 42-75 Automated blood lymphocytes/100 leukocytes 18 %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
[2020-01-15] MEDS ORDERED: fentaNYL INJECTION 100 MCG/2 ML AMP IVP STA ×2 (00:05→03:30)
[2020-01-15] MEDS ORDERED: ONDANSETRON 4 MG/2 ML (SDV) Z0FRAN IVP ONE (00:30)
[2020-01-15] MEDS ORDERED: KETOROLAC 30 MG/ML VIAL IVP STA (01:26)
[2020-01-15] MEDS ORDERED: LORazepam INJ 2 MG/ML (ATIVAN) VIAL IVP ONE (01:30)
[2020-01-15] MEDS ORDERED: PROMETHAZINE INJ 25 MG/ML (PHENERGAN) AMP IVP STA (02:46)
[2020-01-15] MEDS ORDERED: NS (IVPB) 50 ML ONE (02:50)
[2020-01-15] MEDS ORDERED: hydrALAZINE (APESOLINE) 20 MG/ML VIAL IV ONE (03:00)
[2020-01-15] MEDS ORDERED: IOHEXOL 350 MG/ML 100 ML (OMNIPAQUE 350) VIAL IV ONE (04:30)
[2020-01-15] MEDS ORDERED: NS 100 ML (IVPB) BAG IV ONE (04:30)
--- NOTE | 2020-01-15 06:01 | NUR ---
JOSH LOERA FROM ED CALLED IN REPORT ON PT TO THIS RN AT 2192.
--- NOTE | 2020-01-15 06:10 | NUR ---
PT admitted to room 411-1, with an admitting diagnosis of INTRACTABLE N/V, ABDOMINAL PAIN, AND HYPOKALEMIA, on 01/15/20 from [facility] via W/C, accompanied by STAFF. WAYLON MCNULTY SR introduced to surroundings, call light, bed controls, phone, TV, temperature control, lights, meal times, smoking policy, visitor policy, side rail policy, bathrooms and showers. Patient Rights given to patient in the handbook. WAYLON MCNULTY SR verbalizes understanding that [facility] is not responsible for the loss or damage to any personal effects or valuables that are kept in the patients possession during their hospitalization. Patient and/or family were informed about the Rapid Response Team and its purpose.
[2020-01-15] MEDS ORDERED: LACTATED RINGERS 1,000 ML IV ONE (06:16)
[2020-01-15 06:18] VITALS: BP 193/100
[2020-01-15] MEDS ORDERED: fentaNYL INJECTION 100 MCG/2 ML AMP ONE (06:26)
[2020-01-15] MEDS: fentaNYL INJECTION 100 MCG/2 ML AMP IV PRN ×9 (06:41→23:20)
[2020-01-15] MEDS: LACTATED RINGERS 1,000 ML IV SCH ×2 (06:42→14:55)
[2020-01-15] MEDS: ONDANSETRON 4 MG/2 ML (SDV) Z0FRAN IV PRN ×5 (06:49→23:17)
[2020-01-15] MEDS: POTASSIUM CL 10 MEQ/50 ML IVPB (PRE-MIX) IV SCH ×2 (06:54→08:42)
--- NOTE | 2020-01-15 07:39 | Diagnostic Imaging Report ---
PROCEDURE: CT abdomen and pelvis with contrast. TECHNIQUE: Multiple contiguous axial images were obtained through the abdomen and pelvis after administration of intravenous contrast. Auto Exposure Controls were utilized during the CT exam to meet ALARA standards for radiation dose reduction. INDICATION: Abdominal pain. FINDINGS: There is diffuse hepatic steatosis. The gallbladder and bile ducts are normal. The spleen is mildly prominent. The pancreas and adrenals are normal. There is mild atrophy of the left kidney as compared to the right. 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 There are changes of prior bowel surgery with sutures seen at the rectosigmoid junction region. There is mild mucosal thickening of the sigmoid colon proximal to this. This could be due to underdistention. Inflammation is a possibility. No obstruction or perforation is evident. The small bowel is within normal limits. There is no free intraperitoneal air or fluid. There is no adenopathy. There is no acute bony abnormality. IMPRESSION: There is hepatic steatosis. There is mild splenomegaly. Possible mild colitis involving the sigmoid colon. Dictated by: Dictated on workstation # [id number]
[2020-01-15 08:00] VITALS: BP 186/95
[2020-01-15] MEDS ORDERED: PREG225C7 PO (08:22)
[2020-01-15] MEDS ORDERED: GBPN600T PO ×2 (08:22)
[2020-01-15] MEDS ORDERED: CLON2TAB12 PO (08:22)
[2020-01-15] MEDS ORDERED: PANT40TA3 PO (08:22)
[2020-01-15] MEDS: PROMETHAZINE INJ 25 MG/ML (PHENERGAN) AMP IV PRN ×3 (08:42→21:17)
--- NOTE | 2020-01-15 09:26 | History & Physical-Hospitalist ---
History of Present Illness HPI/Chief Complaint CC: Severe nausea and vomiting and abdominal pain HPI: This is a 54yoWM clinic pt of Leonardo Noam at [facility] who has a PMH of rectal carcinoma and s/p multiple abdominal surgeries back in 2012 who was set for revision of his colostomy and Dr. Hills was consulted due to his severe nausea and vomiting. Pt spent 6hrs in the ER could not be managed so he was placed in inpatient status. Pt reports nausea is improved and a little bit of dry heaving still. Source: patient Exam Limitations: no limitations Date Seen 01/15/20 Time Seen by a Provider: 10:00 Attending Physician Cammie Keys DO PCP Jyotsna Teresa DO Referring Physician Date of Admission Jan 15, 2020 at 05:05 Home Medications & Allergies Home Medications Reviewed patient Home Medication Reconciliation performed by pharmacy medication reconciliations library information technician and/or nursing. Patients Allergies have been reviewed. Allergies Allergies Coded Allergies morphine (Verified Allergy, Intermediate, 01/01/17) codeine (Verified Adverse Reaction, Unknown, NAUSEA, 01/01/17) Past Sadrttp-Ftjdfz-Fqmnmd Hx Past Med/Social Hx: Reviewed Nursing Past Med/Soc Hx, Reviewed and Corrections made Patient Social History Marrital Status: single Employed/Student: employed, unemployed Alcohol Use: Denies Use Recreational Drug Use: No Smoking Status: Former Smoker 2nd Hand Smoke Exposure: No Recent Foreign Travel: No Contact w/other who traveled: No Recent Hopitalizations: No Recent Infectious Disease Expo: No Immunizations Up To Date Tetanus Booster (TDap): Unknown Pediatric: No Seasonal Allergies Seasonal Allergies: No Past Medical History Surgeries: Abdominal, Bladder Surgery, Bowel Surgery, Cystectomy, Orthopedic, Rectal, Renal, Vascular Surgery Respiratory: COPD, Pneumonia Currently Using CPAP: No Currently Using BIPAP: No Cardiac: High Cholesterol, Hypertension Neurological: Headaches /Migraines, Neuropathy Reproductive: Yes (E.D.) Sexually Transmitted Disease: No HIV/AIDS: No Genitourinary: Neurogenic Bladder, UTI-Chronic Gastrointestinal: Colitis, Gastroesophageal Reflux, Chronic Constipation Musculoskeletal: Arthritis, Chronic Back Pain Loss of Vision: Denies Hearing Impairment: Denies Cancer: Rectal Did You Recieve Any Treatments: Yes What Type of Treatment Did You: Chemotherapy, Radiation, Surgical Intervention Psychosocial: Anxiety, Depression History of Blood Disorders: No Adverse Reaction to Blood Adams: No Family History Reviewed Nursing Family Hx Cataract 03 FATHER, Onset:Unknown Chest pain 03 FATHER, Onset:50's - 60 Family history: Allergy 03 MOTHER Family history: Arthritis 03 FATHER 03 MOTHER Family history: Asthma 03 MOTHER Family history: Cardiovascular disease 03 FATHER Family history: Diabetes mellitus 03 FATHER 03 MOTHER Family history: Hypertension 03 FATHER 03 MOTHER Headache 03 FATHER 03 MOTHER Heart disease 03 FATHER History of - respiratory disease 03 MOTHER Hypercholesterolemia 03 FATHER 03 MOTHER Kidney disease 03 MOTHER Psychotic disorder 03 MOTHER Visual impairment 03 FATHER 03 MOTHER No Family History of: Abdominal aortic aneurysm Sreedhar's disease Alcoholism Aphasia Cancer Cancer of colon Congenital heart disease Congestive heart failure Cystic fibrosis Dementia Dysphagia Family history: Alzheimer's disease Family history: Breast disease Family history: Coronary thrombosis Family history: Gastrointestinal disease Family history: Glaucoma Family history: Osteoporosis Family history: Thyroid disorder Hearing loss Hereditary disease History of - anemia History of - disorder History of drug abuse Human immunodeficiency virus (HIV) seropositivity Infertile Malignant neoplasm of lung Myocardial infarction Parkinson's disease Prostate cancer Seizure disorder Stroke Tuberculosis CAD Under 55 Years Old, COPD, Diabetes, Hypertension Review of Systems Constitutional: see HPI, dizziness, malaise, weakness Respiratory: no symptoms reported Cardiovascular: no symptoms reported Gastrointestinal: abdominal pain, loss of appetite, nausea, vomiting Genitourinary: decreased output Musculoskeletal: back pain Physical Exam Physical Exam Vital Signs Vital Signs - First Documented 01/14/20 22:55 Temp 36.8 Pulse 52 Resp 18 B/P (MAP) 183/124 (143) Pulse Ox 99 O2 Delivery Room Air Capillary Refill : Less Than 3 Seconds Height, Weight, BMI Height: 5'7.00" Weight: 197lbs. 3.0oz. 89.497068sf; 33.73 BMI Method:Estimated General Appearance: No Apparent Distress, Chronically ill, Obese Respiratory: Chest Non Tender, Lungs Clear, Normal Breath Sounds, No Accessory Muscle Use, No Respiratory Distress Cardiovascular: Regular Rate, Rhythm, No Edema, No Gallop, No JVD, No Murmur, Normal Peripheral Pulses Gastrointestinal: Tenderness Extremity: Normal Capillary Refill, Normal Inspection, Normal Range of Motion, Non Tender, No Calf Tenderness, No Pedal Edema Neurologic/Psychiatric: Alert, Oriented x3, No Motor/Sensory Deficits, Normal Mood/Affect Results Results/Procedures Labs Laboratory Tests 01/14/20 23:05 Patient resulted labs reviewed. Assessment/Plan Admission Diagnosis Assessment: Severe nausea and vomiting refractory Abdominal surgeries Abdominal pain acute on chronic Rectal cancer history Hypokalemia GERD HTN Plan: Supportive IV fluids Dr. Hills consult Pain control Nausea control Admission Status: Inpatient Order (span 2 midnights) Reason for Inpatient Admission: refractory n/v in rectal cancer patient Clinical Quality Measures DVT/VTE Risk/Contraindication: Risk Factor Score Per Nursin RFS Level Per Nursing on Admit: 1=Low/No VTE PPX CAMMIE KEYS DO Jan 15, 2020 09:26
--- NOTE | 2020-01-15 10:49 | NUR ---
SPOKE WITH THE PT AND WENT THRU THE EXT MED HISTORY TO COMPLETE THE MED REC PT WAS ABLE TO LIST ALL HIS MEDS WELL WHEN/HOW HE TAKES EACH OTC MEDS: MIGNON
[2020-01-15] MEDS ORDERED: PROMETHAZINE 25 MG (PHENERGAN) TAB PO PRN (12:00)
[2020-01-15] MEDS ORDERED: SERTRALINE 100 MG (ZOLOFT) TAB PO PRN (12:00)
[2020-01-15] MEDS ORDERED: NON-FORMULARY MEDICATION 1 EA EA (Aspirin/Acetaminophen/Caffeine (Excedrin Migraine Caplet PO PRN (12:00)
[2020-01-15] MEDS ORDERED: GABAPENTIN 600 MG (NEURONTIN) TAB PO PRN (12:00)
[2020-01-15 12:30] VITALS: BP 186/96
--- NOTE | 2020-01-15 12:31 | NUR ---
CALLED DR COOK. PATIENT IS NPO. CLARIFIED- NO ICE CHIPS. OKAY TO GIVE HOME MEDICATIONS WITH A SIP OF WATER. DR COOK INFORMED OF INCREASED BLOOD PRESSURE.
[2020-01-15] MEDS: oxyCODONE/APAP 10/325MG (PERCOCET 10) TABLET PO SCH ×3 (12:51→20:24)
--- NOTE | 2020-01-15 13:35 | NUR ---
"RD ASSESSMENT PMHx: hypercholesterolemia; HTN; chronic-UTI; colitis; CA(rectal) PT INTERACTION: Pt was awake and pleasant during nutrition assessment. Pt states current appetite is not good, and has been that way for about 3d. Note pt currently NPO, per chart review. Pt states following a regular diet at home, and has some issues with chewing/swallowing food. Pt states recent issues with nausea, vomiting, and diarrhea, and that his last BM was 01/13. Note pt not currently on bowel regimen per chart review. Pt states no recent wt changes. Note unable to determine recent wt hx, per chart review. ABNORMAL NUTRITION-RELATED LAB VALUES LOW: K 2.8 HIGH: glu 110 Est. kcal needs: 6270-9671 kcal | 15-20 kcal/kg Est. Pro needs: 78-98 g Pro | 0.8-1.0 g Pro/kg PES STATEMENT: Inadequate oral intake (NI-2.1) related to loss of appetite | nausea | vomiting | constipation as evidenced by pt interview INTERVENTION: Note pt currently NPO. Would recommend diet advancement as medically able and as tolerated. Will continue to follow and reassess as pt needs, intake, and status change. MONITOR/EVALUATE: PO Intake; Plan of Care; Hydration Status; Weight Status; Lab Values Jayla Garcia, MS, RD, LD"
[2020-01-15 16:23] VITALS: BP 142/83
[2020-01-15 19:25] VITALS: BP 153/87
--- NOTE | 2020-01-15 20:44 | Consultation - Surgery ---
History of Present Illness History of Present Illness Patient Consulted On(ronna/time) 01/15/20 08:04 Date Seen by Provider: Jan 15, 2020 Time Seen by Provider: 08:04 History of Present Illness Consult requested by Dr. Smith for N/V, abdominal pain. 54 year old male with history of rectal cancer, then lost function of bladder and had to have it removed and urostomy. Patient having 3 days nausea, vomiting and diarrhea. Patient unable to keep anything down and having a lot of dry heaves. Patient slightly better this morning but continues to have pain throughout abdomen. It is cramping in nature. No radiation. Moderate pain. Eating makes worse. Nothing makes better. Patient states has chronic pain but can't take his pain medication cuase he candace throw it up. He is having diarrhea and passing flatus. No blood in stool. Denies fever sweats chills shortness of breath or chest pain. Had ct scan showing a little thickend area of sigmoid colon ? colitis, hepatic steatosis. Allergies and Home Medications Allergies Coded Allergies: morphine (Verified Allergy, Intermediate, 01/01/17) codeine (Verified Adverse Reaction, Unknown, NAUSEA, 01/01/17) Home Medications Amlodipine Besylate 10 Mg Tablet, 10 MG PO DAILY, (Reported) Aspirin/Acetaminophen/Caffeine 1 Each Tablet, 2 TAB PO DAILY PRN for HEADACHE, (Reported) Clonazepam 2 Mg Tablet, 4 MG PO HS, (Reported) TAKES 2 (2MG) TABS Gabapentin 600 Mg Tablet, 600 MG PO HS, (Reported) Gabapentin 600 Mg Tablet, 600 MG PO BID PRN for PAIN-BREAKTHROUGH, (Reported) Oxycodone HCl 30 Mg Tablet, 30 MG PO BID, (Reported) Oxycodone HCl/Acetaminophen 1 Each Tablet, 1 EA PO Q4H, (Reported) Pantoprazole Sodium 40 Mg Tablet.dr, 40 MG PO DAILY, (Reported) Pregabalin 225 Mg Capsule, 225 MG PO BID, (Reported) Promethazine HCl 25 Mg Tablet, 25 MG PO Q6H PRN for NAUSEA/VOMITING-2ND LINE, (Reported) Sertraline HCl 100 Mg Tablet, 100 MG PO DAILY PRN for EMOTIONS, (Reported) Patient Home Medication List Home Medication List Reviewed: Yes Past Xneazhg-Sosayx-Ahmbfy Hx Patient Social History Alcohol Use: Denies Use Recreational Drug Use: No Smoking Status: Former Smoker 2nd Hand Smoke Exposure: No Recent Foreign Travel: No Contact w/Someone Who Travel: No Recent Infectious Disease Expo: No Recent Hopitalizations: No Immunizations Up To Date Tetanus Booster (TDap): Unknown PED Vaccines UTD: No Seasonal Allergies Seasonal Allergies: No Surgeries History of Surgeries: Yes (urostomy, colonresection) Surgeries: Abdominal, Bladder Surgery, Bowel Surgery, Cystectomy, Orthopedic, Rectal, Renal, Vascular Surgery Respiratory History of Respiratory Disorde: No Cardiovascular History of Cardiac Disorders: Yes Cardiac Disorders: High Cholesterol, Hypertension Neurological History of Neurological Disord: Yes Neurological Disorders: Headaches /Migraines, Neuropathy Reproductive System Hx Reproductive Disorders: Yes (E.D.) Sexually Transmitted Disease: No HIV/AIDS: No Genitourinary History of Genitourinary Disor: Yes Genitourinary Disorders: Neurogenic Bladder, UTI-Chronic Gastrointestinal History of Gastrointestinal Di: Yes Gastrointestinal Disorders: Colitis, Gastroesophageal Reflux, Chronic Constipation Musculoskeletal History of Musculoskeletal Dis: No Musculoskeletal Disorders: Arthritis, Chronic Back Pain Endocrine History of Endocrine Disorders: No HEENT History of HEENT Disorders: No Loss of Vision: Denies Hearing Impairment: Denies Cancer History of Cancer: Yes Cancer: Rectal Psychosocial History of Psychiatric Problem: Yes Behavioral Health Disorders: Anxiety, Depression Integumentary History of Skin or Integumenta: No Blood Transfusions History of Blood Disorders: No Adverse Reaction to a Blood Tr: No Reviewed Nursing Assessment Reviewed/Agree w Nursing PMH: Yes Family Medical History Significant Family History: CAD Under 55 Years Old, COPD, Diabetes, Hypertension Family Medial History: Cataract 03 FATHER, Onset:Unknown Chest pain 03 FATHER, Onset:50's - 60 Family history: Allergy 03 MOTHER Family history: Arthritis 03 FATHER 03 MOTHER Family history: Asthma 03 MOTHER Family history: Cardiovascular disease 03 FATHER Family history: Diabetes mellitus 03 FATHER 03 MOTHER Family history: Hypertension 03 FATHER 03 MOTHER Headache 03 FATHER 03 MOTHER Heart disease 03 FATHER History of - respiratory disease 03 MOTHER Hypercholesterolemia 03 FATHER 03 MOTHER Kidney disease 03 MOTHER Psychotic disorder 03 MOTHER Visual impairment 03 FATHER 03 MOTHER No Family History of: Abdominal aortic aneurysm Sreedhar's disease Alcoholism Aphasia Cancer Cancer of colon Congenital heart disease Congestive heart failure Cystic fibrosis Dementia Dysphagia Family history: Alzheimer's disease Family history: Breast disease Family history: Coronary thrombosis Family history: Gastrointestinal disease Family history: Glaucoma Family history: Osteoporosis Family history: Thyroid disorder Hearing loss Hereditary disease History of - anemia History of - disorder History of drug abuse Human immunodeficiency virus (HIV) seropositivity Infertile Malignant neoplasm of lung Myocardial infarction Parkinson's disease Prostate cancer Seizure disorder Stroke Tuberculosis Review of Systems-General Constitutional: no symptoms reported; No chills, No diaphoresis EENTM: no symptoms reported; No hearing loss, No ear pain, No blurred vision Respiratory: No cough, No dyspnea on exertion Cardiovascular: No chest pain, No edema Gastrointestinal: abdominal pain (diffuse), diarrhea, nausea, vomiting Genitourinary: No hematuria; other (urostomy functioning) Musculoskeletal: No back pain, No joint pain Skin: No change in color, No change in hair/nails Psychiatric/Neurological: Denies Anxiety, Denies Depressed, Denies Emotional Problems Physical Exam-General Problems Physical Exam Vital Signs Vital Signs - First Documented 01/14/20 22:55 Temp 36.8 Pulse 52 Resp 18 B/P (MAP) 183/124 (143) Pulse Ox 99 O2 Delivery Room Air Capillary Refill : Less Than 3 Seconds General Appearance: WD/WN, no apparent distress HEENT: PERRL/EOMI, normal ENT inspection Neck: full range of motion, supple, normal inspection Respiratory: chest non-tender, no respiratory distress, no accessory muscle use Cardiovascular: regular rate, rhythm, no edema Gastrointestinal: soft; No guarding, No rebound; tenderness (mild diffusely), other (urostomy pink with output) Rectal: deferred Back: no CVA tenderness, no vertebral tenderness Extremities: non-tender, normal inspection Neurologic/Psychiatric: alert, normal mood/affect, oriented x 3 Skin: normal color, warm/dry Lymphatic: no adenopathy Data Review Labs Laboratory Tests 01/14/20 23:05: White Blood Count 10.3, Red Blood Count 5.35, Hemoglobin 14.4, Hematocrit 41, Mean Corpuscular Volume 77L, Mean Corpuscular Hemoglobin 27, Mean Corpuscular Hemoglobin Concent 35, Red Cell Distribution Width 14.9H, Platelet Count 267, Me an Platelet Volume 10.7H, Neutrophils (%) (Auto) 71, Lymphocytes (%) (Auto) 22, Monocytes (%) (Auto) 7, Eosinophils (%) (Auto) 0, Basophils (%) (Auto) 0, Neutrophils # (Auto) 7.4, Lymphocytes # (Auto) 2.3, Monocytes # (Auto) 0.7, Eosinophils # (Auto) 0.0, Basophils # (Auto) 0.0, Sodium Level 141, Potassium Level 2.8L, Chloride Level 106, Carbon Dioxide Level 22, Anion Gap 13, Blood Urea Nitrogen 14, Creatinine 1.13, Estimat Glomerular Filtration Rate > 60, BUN/Creatinine Ratio 12, Glucose Level 110H, Calcium Level 9.5, Corrected Calcium 9.1, Magnesium Level 1.7, Total Bilirubin 0.9, Aspartate Amino Transf (AST/SGOT) 23, Alanine Aminotransferase (ALT/SGPT) 25, Alkaline Phosphatase 79, C-Reactive Protein High Sensitivity 0.90H, Total Protein 7.7, Albumin 4.5 Assessment/Plan Assessment/Plan Assessment/Plan history of rectal cancer with colectomy and bladder removed with urostomy formation intractable n/v diffuse abdominal pain abnormal ct scan abdomen pelvis, thickening of sigmoid ? colitis chronic pain hypokalemia feeling a little better today was previously unable to keep pain medications down, starting to get better undercontrol bowel rest K - replace no surgical intervention will need colonoscopy in near future to evaluate colon due to thickening by ct will follow Clinical Quality Measures DVT/VTE Risk/Contraindication: Risk Factor Score Per Nursin RFS Level Per Nursing on Admit: 1=Low/No VTE PPX KEYLA COOK DO Jan 15, 2020 20:44
[2020-01-15] MEDS: PREGABALIN 150 MG (LYRICA) CAPSULE PO SCH (22:28)
[2020-01-15] MEDS: clonazePAM 1 MG (KlonoPIN) TAB PO SCH (22:29)
[2020-01-15] MEDS: PREGABALIN 75 MG (LYRICA) CAP PO SCH (22:30)
[2020-01-15] MEDS: GABAPENTIN 600 MG (NEURONTIN) TAB PO SCH (22:30)
[2020-01-16] VITALS (7 sets, daily range): BP systolic 102–149; BP diastolic 59–88
[2020-01-16] MEDS: oxyCODONE/APAP 10/325MG (PERCOCET 10) TABLET PO SCH ×5 (00:46→15:13)
[2020-01-16] MEDS: fentaNYL INJECTION 100 MCG/2 ML AMP IV PRN (01:23)
[2020-01-16] MEDS: LACTATED RINGERS 1,000 ML IV SCH ×4 (01:30→21:22)
[2020-01-16] MEDS ORDERED: LORazepam INJ 2 MG/ML (ATIVAN) VIAL ONE (02:21)
[2020-01-16] MEDS: LORazepam INJ 2 MG/ML (ATIVAN) VIAL IVP PRN ×2 (02:29→07:08)
--- NOTE | 2020-01-16 03:07 | NUR ---
AT APPROXIMATELY 0130 PT'S CALL LIGHT WENT OFF. UPON ENTERING ROOM IT WAS NOTED THAT PT HAD PULLED HIS CALL LIGHT OUT OF THE WALL. PT WAS NOTED TO HAVE HIS CALL LIGHT CORD, HIS UROSTOMY CATHETER BAG TUBING, AND HIS IV TUBING ALL TANGLED TOGETHER. THIS RN AND THE PT TECH ASSISTED PT IN UNTANGLING THE CORDS. PT WAS NOTED TO BE ALERT BUT MORE CONFUSED. PT WAS SEEING THINGS THAT WERE NOT THERE AND WALKING AROUND ROOM WITH NO APPARENT DIRECTION. VSS. PT EASILY REDIRECTED BUT DOES NOT STAY REDIRECTED LONG. BEFORE THIS RN LEFT PT'S ROOM ALL FOUR BED RAILS WERE RAISED AND BED ALARM WAS PUT ON. THIS RN EDUCATED PT ON THE IMPORTANCE OF CALLING BEFORE GETTING OUT OF BED AND ON THE IMPORTANCE OF NOT PULLING AT HIS UROSTOMY TUBING AND IV TUBING. PT VOICED UNDERSTANDING. APPROXIMATELY 10 MINUTES AFTER LEAVING PT'S ROOM PT'S BED ALARM SOUNDED. PT CLIMBING OVER BED RAILS. PT VERY UPSET REGARDING BED ALARM. THIS RN EXPLAINED TO PT WHY WE NEED TO USE THE BED ALARM AT THIS TIME FOR HIS SAFETY. PT CONTINUED TO ATTEMPT TO GET OUT OF BED AND CONTINUED PULLING ON TUBES. THIS RN INSTRUCTED PT TECH TO SIT WITH PT ONE-ON-ONE. THIS RN MESSAGED DR. KEYS AT 0204 TO UPDATE HER ON PT'S INCREASED CONFUSION. DR. KEYS CALLED THIS RN BACK AND GAVE ORDERS FOR ATIVAN 0.5MG IV Q2 HOURS PRN AND INSTRUCTED TO CONTINUE WITH ONE-ON-ONE SITTER AND CONTINUE TO MONITOR PT. PRN ATIVAN GIVEN TO PT AT 0230. PT IS RESTING IN BED AT THIS TIME WITH EYES CLOSED.
--- NOTE | 2020-01-16 06:24 | Progress Note - Hospitalist ---
Subjective HPI/CC On Admission Date Seen by Provider: Jan 16, 2020 Time Seen by Provider: 09:30 CC: Severe nausea and vomiting and abdominal pain HPI: This is a 54yoWM clinic pt of Leonardo Santacruz at [facility] who has a PMH of rectal carcinoma and s/p multiple abdominal surgeries back in 2012 who was set for revision of his colostomy and Dr. Hills was consulted due to his severe nausea and vomiting. Pt spent 6hrs in the ER could not be managed so he was placed in inpatient status. Pt reports nausea is improved and a little bit of dry heaving still. Subjective/Events-last exam Pt was confused last night required Ativan 0.5mg IV Q2hrs Pt is sedated currently Will change long acting pain medication to as needed because of the oversedation Potassium 2.9 and I am replacing that IV form Creatinine is 1.38 Review of Systems General: Other (confusion drowsiness) Gastrointestinal: Nausea, Vomiting, Abdominal Pain Objective Exam Vital Signs Vital Signs Date Time Temp Pulse Resp B/P (MAP) Pulse Ox O2 Delivery O2 Flow Rate FiO2 01/16/20 19:23 36.6 70 18 149/80 (103) 97 Room Air Capillary Refill : Less Than 3 Seconds General Appearance: No Apparent Distress, WD/WN, Other (drowsy) Respiratory: Chest Non Tender, Lungs Clear, Normal Breath Sounds, No Accessory Muscle Use, No Respiratory Distress Cardiovascular: Regular Rate, Rhythm, No Edema, No Gallop, No JVD, No Murmur, Normal Peripheral Pulses Results/Procedures Lab Laboratory Tests 01/16/20 06:12 Patient resulted labs reviewed. Assessment/Plan Assessment and Plan Assess & Plan/Chief Complaint Assessment: Severe nausea and vomiting refractory Abdominal surgeries Abdominal pain acute on chronic Rectal cancer history Hypokalemia GERD HTN Oversedation from narcotics Confusion last night responded to Ativan Plan: Supportive IV fluids Dr. Hills consult Pain control Nausea control Limit narcotics Change pain medication to PRN instead of scheduled Clinical Quality Measures DVT/VTE Risk/Contraindication: Risk Factor Score Per Nursin RFS Level Per Nursing on Admit: 1=Low/No VTE PPX ABRIL KEYS DO Jan 16, 2020 06:24
[2020-01-16 06:32] LABS: BASOPHILS % (AUTO) 0 % (0-10); EOSINOPHILS % (AUTO) 0 % (0-10); HEMATOCRIT 37 % (40-54); HEMOGLOBIN 12.6 G/DL (13.3-17.7); LYMPHOCYTES # (AUTO) 2.8 X 10^3 (1.0-4.0); LYMPHOCYTES % (AUTO) 30 % (12-44); MEAN CORPUSCULAR HEMOGLOBIN 27 PG (25-34); MEAN CORPUSCULAR HGB CONC 34 G/DL (32-36); MEAN CORPUSCULAR VOLUME 80 FL (80-99); MEAN PLATELET VOLUME 11.2 FL (7.4-10.4); MONOCYTES # (AUTO) 0.6 X 10^3 (0.0-1.0); MONOCYTES % (AUTO) 7 % (0-12); NEUTROPHILS # (AUTO) 5.7 X 10^3 (1.8-7.8); NEUTROPHILS % (AUTO) 62 % (42-75); PLATELET COUNT 207 10^3/uL (130-400); RED CELL DISTRIBUTION WIDTH 15.2 % (10.0-14.5); WHITE BLOOD COUNT 9.2 10^3/uL (4.3-11.0)
[2020-01-16 06:45] LABS: ALBUMIN 3.8 GM/DL (3.2-4.5); CALCIUM 8.6 MG/DL (8.5-10.1); CREATININE SERUM 1.38 MG/DL (0.60-1.30); POTASSIUM 2.9 MMOL/L (3.6-5.0); TOTAL PROTEIN 6.3 GM/DL (6.4-8.2)
[2020-01-16] MEDS ORDERED: MAGNESIUM 1 GM/100 ML IVPB 100 ML IV NR (09:30)
[2020-01-16] MEDS: amLODIPine 10 MG (NORVASC) TAB PO SCH ×2 (09:55→13:23)
[2020-01-16] MEDS: PREGABALIN 75 MG (LYRICA) CAP PO SCH ×2 (10:28→21:16)
[2020-01-16] MEDS: PREGABALIN 150 MG (LYRICA) CAPSULE PO SCH ×2 (10:31→21:00)
[2020-01-16] MEDS: POTASSIUM CL 10MEQ/50ML IVPB 50 ML IV SCH ×4 (10:31→15:02)
[2020-01-16] MEDS: PANTOPRAZOLE 40 MG (PROTONIX) TAB PO SCH (10:31)
--- NOTE | 2020-01-16 16:42 | Progress Note - Surgery ---
Subjective Date Seen by a Provider: Jan 16, 2020 Time Seen by a Provider: 16:39 Subjective/Events-last exam Patient feeling better. Today. Pain better controlled. BM today. Nausea improving. Hypokalemia. Urostomy functioning. Denies fever sweats schills shortness of breath or chest pain. Objective Exam Vital Signs Date Time Temp Pulse Resp B/P (MAP) Pulse Ox O2 Delivery O2 Flow Rate FiO2 01/16/20 15:59 36.6 58 20 149/88 (108) 96 Room Air 01/16/20 13:24 36.3 54 16 144/80 (101) 93 Room Air 01/16/20 11:30 36.3 54 16 103/59 (74) 93 Room Air 01/16/20 08:00 Room Air 01/16/20 07:46 36.2 56 18 113/71 (85) 96 Room Air 01/16/20 04:56 36.4 60 16 102/65 (77) 94 Room Air 01/16/20 00:39 36.4 68 20 124/78 (93) 92 Room Air 01/15/20 20:30 Room Air 01/15/20 19:25 37.2 62 18 153/87 (109) 94 Room Air I & O 01/16/20 07:00 Intake Total 1100 ml Output Total 2000 ml Balance -900 ml Capillary Refill : Less Than 3 Seconds General Appearance: No Apparent Distress, WD/WN, Other (drowsy) HEENT: PERRL/EOMI Neck: Non Tender, Supple Respiratory: Chest Non Tender, No Accessory Muscle Use, No Respiratory Distress Cardiovascular: Regular Rate, Rhythm, No Edema, Normal Peripheral Pulses Gastrointestinal: soft; No guarding, No rebound; tenderness (less today, diffuse), other (urostomy pink with output) Extremity: Normal Capillary Refill, Normal Inspection, Normal Range of Motion, Non Tender, No Calf Tenderness, No Pedal Edema Neurologic/Psychiatric: Alert, Oriented x3, No Motor/Sensory Deficits, Normal Mood/Affect Skin: Normal Color, Warm/Dry Lymphatic: No Adenopathy Results Lab Laboratory Tests 01/16/20 06:12: White Blood Count 9.2, Red Blood Count 4.64, Hemoglobin 12.6L, Hematocrit 37L, Mean Corpuscular Volume 80, Mean Corpuscular Hemoglobin 27, Mean Corpuscular Hemoglobin Concent 34, Red Cell Distribution Width 15.2H, Platelet Count 207, Mean Platelet Volume 11.2H, Neutrophils (%) (Auto) 62, Lymphocytes (%) (Auto) 30, Monocytes (%) (Auto) 7, Eosinophils (%) (Auto) 0, Basophils (%) (Auto) 0, Neutrophils # (Auto) 5.7, Lymphocytes # (Auto) 2.8, Monocytes # (Auto) 0.6, Eosinophils # (Auto) 0.0, Basophils # (Auto) 0.0, Sodium Level 139, Potassium Level 2.9L, Chloride Level 104, Carbon Dioxide Level 21, Anion Gap 14, Blood Ur ea Nitrogen 19H, Creatinine 1.38H, Estimat Glomerular Filtration Rate 54, BUN/Creatinine Ratio 14, Glucose Level 84, Calcium Level 8.6, Corrected Calcium 8.8, Magnesium Level 1.5L, Total Bilirubin 1.0, Aspartate Amino Transf (AST/SGOT) 28, Alanine Aminotransferase (ALT/SGPT) 22, Alkaline Phosphatase 61, Total Protein 6.3L, Albumin 3.8 Assessment/Plan Assessment/Plan Assessment/Plan history of rectal cancer with colectomy and bladder removed with urostomy formation intractable n/v diffuse abdominal pain abnormal ct scan abdomen pelvis, thickening of sigmoid ? colitis chronic pain hypokalemia pain control slowly advance diet tomorrow K - replace no surgical intervention will need colonoscopy in near future to evaluate colon due to thickening by ct will follow Clinical Quality Measures DVT/VTE Risk/Contraindication: Risk Factor Score Per Nursin RFS Level Per Nursing on Admit: 1=Low/No VTE PPX KEYLA COOK DO Jan 16, 2020 16:42
[2020-01-16] MEDS: oxyCODONE/APAP 10/325MG (PERCOCET 10) TABLET PO PRN (18:38)
[2020-01-16] MEDS: GABAPENTIN 600 MG (NEURONTIN) TAB PO SCH (21:16)
[2020-01-16] MEDS: clonazePAM 1 MG (KlonoPIN) TAB PO SCH (21:17)
[2020-01-17 00:10] VITALS: BP 99/64
[2020-01-17 03:29] VITALS: BP 100/70
[2020-01-17] MEDS: LACTATED RINGERS 1,000 ML IV SCH (07:08)
[2020-01-17 07:38] LABS: BASOPHILS % (AUTO) 0 % (0-10); EOSINOPHILS # (AUTO) 0.1 10^3/uL (0.0-0.3); EOSINOPHILS % (AUTO) 2 % (0-10); HEMATOCRIT 42 % (40-54); HEMOGLOBIN 13.8 G/DL (13.3-17.7); LYMPHOCYTES # (AUTO) 2.2 X 10^3 (1.0-4.0); LYMPHOCYTES % (AUTO) 34 % (12-44); MEAN CORPUSCULAR HEMOGLOBIN 27 PG (25-34); MEAN CORPUSCULAR HGB CONC 33 G/DL (32-36); MEAN CORPUSCULAR VOLUME 82 FL (80-99); MEAN PLATELET VOLUME 11.2 FL (7.4-10.4); MONOCYTES # (AUTO) 0.4 X 10^3 (0.0-1.0); MONOCYTES % (AUTO) 7 % (0-12); NEUTROPHILS # (AUTO) 3.7 X 10^3 (1.8-7.8); NEUTROPHILS % (AUTO) 57 % (42-75); PLATELET COUNT 171 10^3/uL (130-400); RED CELL DISTRIBUTION WIDTH 15.5 % (10.0-14.5); WHITE BLOOD COUNT 6.5 10^3/uL (4.3-11.0)
[2020-01-17] MEDS: PREGABALIN 150 MG (LYRICA) CAPSULE PO SCH (07:53)
[2020-01-17] MEDS: PREGABALIN 75 MG (LYRICA) CAP PO SCH (07:53)
[2020-01-17 07:54] LABS: ALBUMIN 4.2 GM/DL (3.2-4.5); CHLORIDE 104 MMOL/L (98-107); POTASSIUM 3.2 MMOL/L (3.6-5.0); SODIUM 138 MMOL/L (135-145)
[2020-01-17] MEDS: amLODIPine 10 MG (NORVASC) TAB PO SCH (07:54)
[2020-01-17] MEDS: PANTOPRAZOLE 40 MG (PROTONIX) TAB PO SCH (07:54)
[2020-01-17 07:55] LABS: CALCIUM 8.6 MG/DL (8.5-10.1)
[2020-01-17 07:56] LABS: GLUCOSE 63 MG/DL (70-105); TOTAL PROTEIN 7.1 GM/DL (6.4-8.2)
[2020-01-17 07:57] LABS: CARBON DIOXIDE 19 MMOL/L (21-32)
[2020-01-17 07:58] LABS: BILIRUBIN,TOTAL 0.9 MG/DL (0.1-1.0)
[2020-01-17] MEDS: oxyCODONE/APAP 10/325MG (PERCOCET 10) TABLET PO PRN ×2 (07:58→13:48)
[2020-01-17 08:00] LABS: ALKALINE PHOSPHATASE 75 U/L (40-136); CREATININE SERUM 1.16 MG/DL (0.60-1.30); GFR ESTIMATED > 60
[2020-01-17 08:01] LABS: BUN/CREATININE RATIO 20
[2020-01-17 08:03] LABS: ALANINE AMINOTRANSFERASE 35 U/L (0-55)
[2020-01-17 08:06] VITALS: BP 115/65
[2020-01-17] MEDS ORDERED: POTA10TA36 PO (09:45)
--- NOTE | 2020-01-17 09:47 | Discharge Summary ---
Discharge Summary Hospital Course Was the Problem List Reviewed?: Yes Problems/Dx: (1) Intractable nausea and vomiting Status: Acute (2) Intractable abdominal pain Status: Acute (3) Hypokalemia Status: Resolved (4) Chronic narcotic dependence Status: Acute (5) Acute renal insufficiency Status: Resolved (6) History of rectal cancer Status: Chronic Hospital Course Date of Admission: Jan 15, 2020 at 05:05 Admission Diagnosis : Family Physician/Provider: Liam Santacruz Date of Discharge: 01/17/20 Discharge Diagnosis: Abdominal pain, nausea and vomiting, rectal cancer Hospital Course: Patient had an uneventful hospital course he was admitted for severe nausea and vomiting abdominal pain history of rectal caner severe Hypokalemia resolved with aggressive supplementation anti-emetics maintained. Dr. Hills consulted and over all patient felt well enough. labs remain stable with creatinine of 1.16 he was discharged in improved condition on potassium supplements sent to pharmacy Labs and Pending Lab Test: Laboratory Tests 01/17/20 06:01: White Blood Count 6.5, Red Blood Count 5.10, Hemoglobin 13.8, Hematocrit 42, Mean Corpuscular Volume 82, Mean Corpuscular Hemoglobin 27, Mean Corpuscular Hemoglobin Concent 33, Red Cell Distribution Width 15.5H, Platelet Count 171, Mean Platelet Volume 11.2H, Neutrophils (%) (Auto) 57, Lymphocytes (%) (Auto) 3 4, Monocytes (%) (Auto) 7, Eosinophils (%) (Auto) 2, Basophils (%) (Auto) 0, Neutrophils # (Auto) 3.7, Lymphocytes # (Auto) 2.2, Monocytes # (Auto) 0.4, Eosinophils # (Auto) 0.1, Basophils # (Auto) 0.0, Sodium Level 138, Potassium Level 3.2L, Chloride Level 104, Carbon Dioxide Level 19L, Anion Gap 15H, Blood Urea Nitrogen 23H, Creatinine 1.16, Estimat Glomerular Filtration Rate > 60, BUN/Creatinine Ratio 20, Glucose Level 63L, Calcium Level 8.6, Corrected Calcium 8.4L, Total Bilirubin 0.9, Aspartate Amino Transf (AST/SGOT) 50H, Alanine Aminotransferase (ALT/SGPT) 35, Alkaline Phosphatase 75, Total Protein 7.1, Alb umin 4.2 Home Meds Active Potassium Chloride 10 Meq Tab.er.prt 10 Meq PO BID Reported Pregabalin 225 Mg Capsule 225 Mg PO BID Gabapentin 600 Mg Tablet 600 Mg PO BID PRN Gabapentin 600 Mg Tablet 600 Mg PO HS Clonazepam 2 Mg Tablet 4 Mg PO HS TAKES 2 (2MG) TABS Pantoprazole Sodium 40 Mg Tablet.dr 40 Mg PO DAILY Excedrin Migraine Caplet (Aspirin/Acetaminophen/Caffeine) 1 Each Tablet 2 Tab PO DAILY PRN Promethazine Tablet (Promethazine HCl) 25 Mg Tablet 25 Mg PO Q6H PRN Amlodipine Besylate 10 Mg Tablet 10 Mg PO DAILY Sertraline HCl 100 Mg Tablet 100 Mg PO DAILY PRN Oxycodone-Acetaminophen 10-325 (Oxycodone HCl/Acetaminophen) 1 Each Tablet 1 Ea PO Q4H Oxycodone HCl 30 Mg Tablet 30 Mg PO BID Assessment/Pt Instructions [facility] in one week Discharge Planning: <30 minutes discharge planning Discharge Instructions Discharge Diet: Soft Diet Activity as Tolerated: Yes Discharge Physical Examination Vital Signs Vital Signs Date Time Temp Pulse Resp B/P (MAP) Pulse Ox O2 Delivery O2 Flow Rate FiO2 01/17/20 08:06 36.6 65 18 115/65 (82) 96 Room Air General Appearance: No Apparent Distress, WD/WN, Chronically ill Allergies: Coded Allergies: morphine (Verified Allergy, Intermediate, 01/01/17) codeine (Verified Adverse Reaction, Unknown, NAUSEA, 01/01/17) Discharge Summary Date of Admission Jan 15, 2020 at 05:05 Date of Discharge Discharge Date: Jan 17, 2020 Admission Diagnosis Assessment: Severe nausea and vomiting refractory Abdominal surgeries Abdominal pain acute on chronic Rectal cancer history Hypokalemia GERD HTN Plan: Supportive IV fluids Dr. Hills consult Pain control Nausea control Discharge Diagnosis Assessment: Severe nausea and vomiting refractory Abdominal surgeries Abdominal pain acute on chronic Rectal cancer history Hypokalemia GERD HTN Oversedation from narcotics Confusion last night responded to Ativan Plan: Supportive IV fluids Dr. Hills consult Pain control Nausea control Limit narcotics Change pain medication to PRN instead of scheduled Clinical Quality Measures DVT/VTE Risk/Contraindication: Risk Factor Score Per Nursin RFS Level Per Nursing on Admit: 1=Low/No VTE PPX ABRIL KEYS DO Jan 17, 2020 09:47
[2020-01-17 11:51] VITALS: BP 100/61
--- NOTE | 2020-01-17 14:37 | NUR ---
CM/SS: Visited with pt as to plan for discharge Plan: Pt to return home, with no identified needs. Summary: Pt report having problems with keeping his medications down the lat two day. He reports usually he comes to ER they give him something to help and he returns home. However this time it did not work. He does report feeling better, and will go home later today once can pick him up. He reports he sees the [employer] at [facility] one time per month, he will see him again on 01/27/20. He is encouraged to keep appointment. He verbalizes understanding, and is wished well.
--- NOTE | 2020-01-17 15:12 | Progress Note - Surgery ---
Subjective Date Seen by a Provider: Jan 17, 2020 Time Seen by a Provider: 08:10 Subjective/Events-last exam Patient feeling better today. Pain controlled. Passing flatus and bm. Not having nausea or emesis. Abdominal pain improved. Tolerating diet. Denies n/v fever sweats chills shortness of breath or chest pain. Objective Exam Vital Signs Date Time Temp Pulse Resp B/P (MAP) Pulse Ox O2 Delivery O2 Flow Rate FiO2 01/17/20 11:51 36.5 53 16 100/61 (74) 91 Room Air 01/17/20 08:06 36.6 65 18 115/65 (82) 96 Room Air 01/17/20 08:00 96 Room Air 01/17/20 03:29 36.4 66 21 100/70 (80) 97 Room Air 01/17/20 00:10 36.5 65 20 99/64 (76) 95 Room Air 01/16/20 22:00 36.4 01/16/20 22:00 36.4 01/16/20 21:50 36.4 01/16/20 21:49 36.4 01/16/20 21:19 36.6 01/16/20 20:00 95 Room Air 01/16/20 19:23 36.6 70 18 149/80 (103) 97 Room Air 01/16/20 15:59 36.6 58 20 149/88 (108) 96 Room Air I & O 01/17/20 07:00 Intake Total 4900 ml Output Total 1650 ml Balance 3250 ml Capillary Refill : Less Than 3 SecondsLess Than 3 Seconds General Appearance: No Apparent Distress, WD/WN, Chronically ill HEENT: PERRL/EOMI Neck: Non Tender, Supple Respiratory: Chest Non Tender, No Accessory Muscle Use, No Respiratory Distress Cardiovascular: Regular Rate, Rhythm, No Edema, Normal Peripheral Pulses Gastrointestinal: soft; No guarding, No rebound; tenderness (minimal diffuse), other (urostomy pink with output) Extremity: Normal Capillary Refill, Normal Inspection, Normal Range of Motion, Non Tender, No Calf Tenderness, No Pedal Edema Neurologic/Psychiatric: Alert, Oriented x3, No Motor/Sensory Deficits, Normal Mood/Affect Skin: Normal Color, Warm/Dry Lymphatic: No Adenopathy Results Lab Laboratory Tests 01/17/20 06:01: White Blood Count 6.5, Red Blood Count 5.10, Hemoglobin 13.8, Hematocrit 42, Mean Corpuscular Volume 82, Mean Corpuscular Hemoglobin 27, Mean Corpuscular Hemoglobin Concent 33, Red Cell Distribution Width 15.5H, Platelet Count 171, Mean Platelet Volume 11.2H, Neutrophils (%) (Auto) 57, Lymphocytes (%) (Auto) 34, Monocytes (%) (Auto) 7, Eosinophils (%) (Auto) 2, Basophils (%) (Auto) 0, Neutrophils # (Auto) 3.7, Lymphocytes # (Auto) 2.2, Monocytes # (Auto) 0.4, Eosinophils # (Auto) 0.1, Basophils # (Auto) 0.0, Sodium Level 138, Potassium Level 3.2L, Chloride Level 104, Carbon Dioxide Level 19L, Anion Gap 15H, Blood Urea Nitrogen 23H, Creatinine 1.16, Estimat Glomerular Filtration Rate > 60, BUN/Creatinine Ratio 20, Glucose Level 63L, Calcium Level 8.6, Corrected Calcium 8.4L, Total Bilirubin 0.9, Aspartate Amino Transf (AST/SGOT) 50H, Alanine Aminotransferase (ALT/SGPT) 35, Alkaline Phosphatase 75, Total Protein 7.1, Albumin 4.2 Assessment/Plan Assessment/Plan Assessment/Plan history of rectal cancer with colectomy and bladder removed with urostomy formation intractable n/v diffuse abdominal pain abnormal ct scan abdomen pelvis, thickening of sigmoid ? colitis chronic pain hypokalemia tolerating diet pain improved will need colonoscopy in near future to evaluate colon due to thickening by ct no surgical intervention at this time likely home today Clinical Quality Measures DVT/VTE Risk/Contraindication: Risk Factor Score Per Nursin RFS Level Per Nursing on Admit: 1=Low/No VTE PPX KEYLA COOK DO Jan 17, 2020 15:12
== END 2020-01-17 16:18 | disposition home or self-care (01) | DRG 392 ==
LOC: EDUNIT# 22:50 → ER 22:51 → 4TH 01-15 05:05
PROVIDERS: ADMIT Internal Medicine; ATTEND Internal Medicine
DX: R11.2 Nausea with vomiting, unspecified (principal); R19.7 Diarrhea, unspecified; R10.84 Generalized abdominal pain; K76.0 Fatty (change of) liver, not elsewhere classified; E87.6 Hypokalemia; Z85.048 Personal history of other malignant neoplasm of rectum, rectosigmoid junction, and anus; Z90.6 Acquired absence of other parts of urinary tract; Z93.6 Other artificial openings of urinary tract status; E78.00 Pure hypercholesterolemia, unspecified; I10 Essential (primary) hypertension; N31.9 Neuromuscular dysfunction of bladder, unspecified; K52.9 Noninfective gastroenteritis and colitis, unspecified; F41.9 Anxiety disorder, unspecified; F32.9 Major depressive disorder, single episode, unspecified; J44.9 Chronic obstructive pulmonary disease, unspecified; N28.9 Disorder of kidney and ureter, unspecified; G62.9 Polyneuropathy, unspecified; K21.9 Gastro-esophageal reflux disease without esophagitis; M19.91 Primary osteoarthritis, unspecified site; M54.5 Low back pain; R41.0 Disorientation, unspecified; T40.605A Adverse effect of unspecified narcotics, initial encounter; Z87.891 Personal history of nicotine dependence; Z87.01 Personal history of pneumonia (recurrent); Z79.891 Long term (current) use of opiate analgesic
CPT/HCPCS: 36415; 74177; 80053; 83735; 85025; 86141; 96361; 96374; 96375; 96376

== ENCOUNTER → 2020-04-06 | Outpatient (CLI) | payer MEDICARE, MEDICAID ==
[~2020-04-06] MED LIST changes: +CLON2TAB12 PO; -OXYC-465; -OXYC-465 PO; +OXYC-556; +OXYC-556 PO; +PANT40TA52 PO; +PREG225C7 PO
[2020-04-06 14:45] LABS: BASOPHILS % (AUTO) 0 % (0-10); EOSINOPHILS # (AUTO) 0.2 10^3/uL (0.0-0.3); EOSINOPHILS % (AUTO) 3 % (0-10); HEMATOCRIT 39 % (40-54); HEMOGLOBIN 13.1 G/DL (13.3-17.7); LYMPHOCYTES # (AUTO) 2.4 X 10^3 (1.0-4.0); LYMPHOCYTES % (AUTO) 32 % (12-44); MEAN CORPUSCULAR HEMOGLOBIN 26 PG (25-34); MEAN CORPUSCULAR HGB CONC 33 G/DL (32-36); MEAN CORPUSCULAR VOLUME 79 FL (80-99); MEAN PLATELET VOLUME 10.7 FL (7.4-10.4); MONOCYTES # (AUTO) 0.4 X 10^3 (0.0-1.0); MONOCYTES % (AUTO) 6 % (0-12); NEUTROPHILS # (AUTO) 4.4 X 10^3 (1.8-7.8); NEUTROPHILS % (AUTO) 59 % (42-75); PLATELET COUNT 248 10^3/uL (130-400); WHITE BLOOD COUNT 7.4 10^3/uL (4.3-11.0)
[2020-04-06 15:01] LABS: ALANINE AMINOTRANSFERASE 50 U/L (0-55); ALKALINE PHOSPHATASE 76 U/L (40-136); BILIRUBIN,TOTAL 0.5 MG/DL (0.1-1.0); BUN/CREATININE RATIO 13; CALCIUM 8.4 MG/DL (8.5-10.1); CARBON DIOXIDE 20 MMOL/L (21-32); CHLORIDE 109 MMOL/L (98-107); GFR ESTIMATED > 60; GLUCOSE 114 MG/DL (70-105); POTASSIUM 3.5 MMOL/L (3.6-5.0); SODIUM 141 MMOL/L (135-145); TOTAL PROTEIN 6.8 GM/DL (6.4-8.2)
== END ==
LOC: ONC 14:29
PROVIDERS: ATTEND Internal Medicine Hematology & Oncology
DX: C20 Malignant neoplasm of rectum (principal); K76.0 Fatty (change of) liver, not elsewhere classified; K31.84 Gastroparesis; G62.89 Other specified polyneuropathies
CPT/HCPCS: 80053; 82378; 85025; 99213

== ENCOUNTER 2020-07-20 06:46 | Inpatient (IN) | payer MEDICARE, MEDICAID ==
[~2020-07-20] VITALS: Ht 170.2 cm; Wt 94.2 kg
[~2020-07-20 06:46] MED LIST changes: +AMLO-251 PO; -AMLO10TA7 PO
[2020-07-20] MEDS ORDERED: LACTATED RINGERS 1,000 ML IV ONE ×2 (06:57→07:00)
[2020-07-20] MEDS ORDERED: ONDANSETRON 4 MG/2 ML (SDV) Z0FRAN ONE (06:58)
[2020-07-20] MEDS ORDERED: ONDANSETRON 4 MG/2 ML (SDV) Z0FRAN IVP ONE (07:00)
[2020-07-20] MEDS ORDERED: FAMOTIDINE 20MG/2ML IV (PEPCID) IVP ONE (07:00)
--- NOTE | 2020-07-20 07:10 | ED Abdominal Pain ---
General Chief Complaint: Abdominal/GI Problems Stated Complaint: PUI;VOMITING;DIARRHEA;FEVER Source of Information: Patient, Old Records Exam Limitations: No Limitations (SHAY ALFONSO MD) History of Present Illness Date Seen by Provider: Jul 20, 2020 Time Seen by Provider: 06:47 Initial Comments This 54-year-old man presents to the emergency room with complaints of lower abdominal pain, nausea, vomiting, diarrhea, but he had fever. EMS measured his temperature as 100.9. He has had a positive COVID-19 exposure within the family within the past month. He denies any respiratory symptoms. He has history of colorectal cancer as well as cystectomy and urostomy. Symptoms started in the night. (SHAY ALFONSO MD) Allergies and Home Medications Allergies Coded Allergies: morphine (Verified Allergy, Intermediate, 01/01/17) codeine (Verified Adverse Reaction, Unknown, NAUSEA, 01/01/17) Home Medications Amlodipine Besylate 10 Mg Tablet, 10 MG PO HS, (Reported) Clonazepam 2 Mg Tablet, 4 MG PO HS, (Reported) TAKES 2 (2MG) TABS Oxycodone HCl 30 Mg Tablet, 30 MG PO BID, (Reported) Oxycodone HCl/Acetaminophen 1 Each Tablet, 1 EA PO Q6H, (Reported) Pantoprazole Sodium 40 Mg Tablet.dr, 40 MG PO 1200, (Reported) Pregabalin 225 Mg Capsule, 225 MG PO BID, (Reported) Promethazine HCl 25 Mg Tablet, 25 MG PO BID PRN for NAUSEA/VOMITING-2ND LINE, (Reported) Sertraline HCl 100 Mg Tablet, 100 MG PO DAILY PRN for EMOTIONS, (Reported) Patient Home Medication List Home Medication List Reviewed: Yes (SHAY ALFONSO MD) Review of Systems Review of Systems Constitutional: see HPI EENTM: No Symptoms Reported Respiratory: No Symptoms Reported Cardiovascular: No Symptoms Reported Gastrointestinal: See HPI Genitourinary: See HPI Musculoskeletal: no symptoms reported Skin: no symptoms reported Psychiatric/Neurological: No Symptoms Reported Endocrine: No Symptoms Reported Hematologic/Lymphatic: No Symptoms Reported (SHAY ALFONSO MD) Past Tfzowab-Ffzkom-Vqrcyt Hx Past Med/Social Hx: Reviewed Nursing Past Med/Soc Hx (SHAY ALFONSO MD) Patient Social History 2nd Hand Smoke Exposure: No Recent Hopitalizations: No (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 [email or web address]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) Immunizations Up To Date Tetanus Booster (TDap): Unknown PED Vaccines UTD: No (LAURA VEGAS STUDENT) Seasonal Allergies Seasonal Allergies: No (LAURA VE[place]AS [email or web address] PORFIRIO) Past Medical History Surgeries: Yes (urostomy, colonresection) Abdominal, Bladder Surgery, Bowel Surgery, Cystectomy, Orthopedic, Rectal, Renal, Vascular Surgery Respiratory: No Currently Using CPAP: No Currently Using BIPAP: No Cardiac: Yes High Cholesterol, Hypertension Neurological: Yes Headaches /Migraines, Neuropathy Reproductive Disorders: Yes (E.D.) Sexually Transmitted Disease: No HIV/AIDS: No Genitourinary: Yes Neurogenic Bladder, UTI-Chronic Gastrointestinal: Yes Colitis, Gastroesophageal Reflux, Chronic Constipation Musculoskeletal: No Arthritis, Chronic Back Pain Endocrine: No HEENT: No Loss of Vision: Denies Hearing Impairment: Denies Cancer: Yes Rectal Did You Recieve Any Treatments: Yes What Type of Treatment Did You: Chemotherapy, Radiation, Surgical Intervention Psychosocial: Yes Anxiety, Depression Integumentary: No Blood Disorders: No Adverse Reaction/Blood Tranf: No (LAURA [email or web address] STUDENT) Family Medical History Cataract 03 FATHER, Onset:Unknown Chest pain 03 FATHER, Onset:50's - 60 Family history: Allergy 03 MOTHER Family history: Arthritis 03 FATHER 03 MOTHER Family history: Asthma 03 MOTHER Family history: Cardiovascular disease 03 FATHER Family history: Diabetes mellitus 03 FATHER 03 MOTHER Family history: Hypertension 03 FATHER 03 MOTHER Headache 03 FATHER 03 MOTHER Heart disease 03 FATHER History of - respiratory disease 03 MOTHER Hypercholesterolemia 03 FATHER 03 MOTHER Kidney disease 03 MOTHER Psychotic disorder 03 MOTHER Visual impairment 03 FATHER 03 MOTHER No Family History of: Abdominal aortic aneurysm Foard's disease Alcoholism Aphasia Cancer Cancer of colon Congenital heart disease Congestive heart failure Cystic fibrosis Dementia Dysphagia Family history: Alzheimer's disease Family history: Breast disease Family history: Coronary thrombosis Family history: Gastrointestinal disease Family history: Glaucoma Family history: Osteoporosis Family history: Thyroid disorder Hearing loss Hereditary disease History of - anemia History of - disorder History of drug abuse Human immunodeficiency virus (HIV) seropositivity Infertile Malignant neoplasm of lung Myocardial infarction Parkinson's disease Prostate cancer Seizure disorder Stroke Tuberculosis CAD Under 55 Years Old, COPD, Diabetes, Hypertension (LAURA VEGAS [email or web address] STUDENT) Physical Exam Vital Signs Vital Signs - First Documented 07/20/20 06:52 Temp 38.0 Pulse 100 Resp 20 B/P (MAP) 171/99 (123) Pulse Ox 99 O2 Delivery Room Air (SHAY ALFONSO MD) Vital Signs Capillary Refill : (LA[employer]A [employer] X MED STUDENT) Height/Weight/BMI Height: 5'7.00" Weight: 197lbs. 3.0oz. 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, no motor/sensory deficits, alert, normal mood/affect, oriented x 3 Skin: normal color, warm/dry (SHAY ALFONSO MD) Focused Exam Lactate Level 07/20/20 06:55: Lactic Acid Level 1.79 (SHAY ALFONSO MD) Lactic Acid Level Laboratory Tests Test 07/20/20 06:55 Lactic Acid Level 1.79 MMOL/L (0.50-2.00) (SHAY ALFONSO MD) Progress/Results/Core Measures Results/Orders Lab Results Laboratory Tests Test 07/20/20 06:55 07/20/20 07:00 07/20/20 07:35 Range/Units White Blood Count 15.5 H 4.3-11.0 10^3/uL Red Blood Count 5.48 4.30-5.52 10^6/uL Hemoglobin 14.7 13.3-17.7 g/dL Hematocrit 44 40-54 % Mean Corpuscular Volume 80 80-99 fL Mean Corpuscular Hemoglobin 27 25-34 pg Mean Corpuscular Hemoglobin Concent 34 32-36 g/dL Red Cell Distribution Width 14.6 H 10.0-14.5 % Platelet Count 502 H 130-400 10^3/uL Mean Platelet Volume 10.7 9.0-12.2 fL Immature Granulocyte % (Auto) 1 % Neutrophils (%) (Auto) 88 H 42-75 % Lymphocytes (%) (Auto) 8 L 12-44 % Monocytes (%) (Auto) 3 0-12 % Eosinophils (%) (Auto) 0 0-10 % Basophils (%) (Auto) 0 0-10 % Neutrophils # (Auto) 13.5 H 1.8-7.8 10^3/uL Lymphocytes # (Auto) 1.3 1.0-4.0 10^3/uL Monocytes # (Auto) 0.5 0.0-1.0 10^3/uL Eosinophils # (Auto) 0.0 0.0-0.3 10^3/uL Basophils # (Auto) 0.0 0.0-0.1 10^3/uL Immature Granulocyte # (Auto) 0.2 H 0.0-0.1 10^3/uL Neutrophils % (Manual) 85 % Lymphocytes % (Manual) 12 % Monocytes % (Manual) 2 % Band Neutrophils 1 % Blood Morphology Comment NORMAL Prothrombin Time 13.7 12.2-14.7 SEC INR Comment 1.0 0.8-1.4 Activated Partial Thromboplast Time 33 24-35 SEC Sodium Level 139 135-145 MMOL/L Potassium Level 3.2 L 3.6-5.0 MMOL/L Chloride Level 104 98-107 MMOL/L Carbon Dioxide Level 20 L 21-32 MMOL/L Anion Gap 15 H 5-14 MMOL/L Blood Urea Nitrogen 17 7-18 MG/DL Creatinine 0.97 0.60-1.30 MG/DL Estimat Glomerular Filtration Rate > 60 BUN/Creatinine Ratio 18 Glucose Level 202 H 70-105 MG/DL Lactic Acid Level 1.79 0.50-2.00 MMOL/L Calcium Level 9.4 8.5-10.1 MG/DL Corrected Calcium 9.0 8.5-10.1 MG/DL Total Bilirubin 0.8 0.1-1.0 MG/DL Aspartate Amino Transf (AST/SGOT) 19 5-34 U/L Alanine Aminotransferase (ALT/SGPT) 22 0-55 U/L Alkaline Phosphatase 102 40-136 U/L Lactate Dehydrogenase 361 H 125-220 U/L C-Reactive Protein High Sensitivity 4.33 H 0.00-0.50 MG/DL Total Protein 8.1 6.4-8.2 GM/DL Albumin 4.5 3.2-4.5 GM/DL Lipase 6 L 8-78 U/L Procalcitonin 0.21 H <0.10 NG/ML Coronavirus 2019 (EVA) Positive H Negative Urine Color YELLOW Urine Clarity SL CLOUDY Urine pH 7.5 5-9 Urine Specific [place] 1.015 L 1.016-1.022 Urine Protein 2+ H NEGATIVE Urine Glucose (UA) NEGATIVE NEGATIVE Urine Ketones 2+ H NEGATIVE Urine Nitrite POSITIVE H NEGATIVE Urine Bilirubin NEGATIVE NEGATIVE Urine Urobilinogen 0.2 < = 1.0 MG/DL Urine Leukocyte Esterase TRACE H NEGATIVE Urine RBC (Auto) NEGATIVE NEGATIVE Urine RBC 0-2 /HPF Urine WBC 10-25 H /HPF Urine Squamous Epithelial Cells 0-2 /HPF Urine Crystals PRESENT H /LPF Urine Amorphous Sediment LARGE FLORES URATES H /LPF Urine Bacteria LARGE H /HPF Urine Casts NONE /LPF Urine Mucus NEGATIVE /LPF Urine Culture Indicated YES (SHAY ALFONSO MD) Micro Results Microbiology 07/20/20 Influenza Types A,B Antigen (PEPE) - Final, Complete (SHAY ALFONSO MD) My Orders Orders - SHAY ALFONSO MD Cbc With Automated Diff (07/20/20 06:58) Comprehensive Metabolic Panel (07/20/20 06:58) Blood Culture (07/20/20 06:58) Sputum Culture (07/20/20 06:58) Urinalysis (07/20/20 06:58) Urine Culture (07/20/20 06:58) Protime With Inr (07/20/20 06:58) Partial Thromboplastin Time (07/20/20 06:58) Chest 1 View, Ap/Pa Only (07/20/20 06:58) Ed Iv/Invasive Line Start (07/20/20 06:58) Ed Iv/Invasive Line Start (07/20/20 06:58) Vital Signs Adult Sepsis Patie Q15M (07/20/20 06:58) O2 (07/20/20 06:58) Remove Rings In Anticipation O (07/20/20 06:58) Lactic Acid Analyzer (07/20/20 06:58) Influenza A And B Antigens (07/20/20 06:58) Lipase (07/20/20 06:58) Ondansetron Injection (Zofran Injectio (07/20/20 07:00) Famotidine Injection (Pepcid Injection) (07/20/20 07:00) Lactated Ringers (Lr 1000 Ml Iv Solution (07/20/20 07:00) Procalcitonin (Pct) (07/20/20 06:59) Hs C Reactive Protein (07/20/20 06:59) LDH (07/20/20 06:59) Covid 19 Inhouse Test (07/20/20 06:59) Lactated Ringers (Lr 1000 Ml Iv Solution (07/20/20 06:57) Ondansetron Injection (Zofran Injectio (07/20/20 06:58) Manual Differential (07/20/20 06:55) Fentanyl Injection (Sublimaze Injection (07/20/20 07:45) Fentanyl Injection (Sublimaze Injection (07/20/20 07:37) Ct Abdomen/Pelvis W (07/20/20 07:48) Iohexol Injection (Omnipaque 350 Mg/Ml 1 (07/20/20 08:00) Received Contrast (Hold Metformin- Contr (07/20/20 08:00) Sodium Chloride Flush (Catheter Flush Sy (07/20/20 08:00) Ns (Ivpb) (Sodium Chloride 0.9% Ivpb Bag (07/20/20 08:00) Ceftriaxone For Iv Use (Rocephin For I (07/20/20 09:30) Promethazine Injection (Phenergan Injec (07/20/20 10:00) Fentanyl Injection (Sublimaze Injection (07/20/20 10:45) (SHAY ALFONSO MD) Medications Given in ED Current Medications Medications Dose Ordered Sig/Kenny Route Start Time Stop Time Status Last Admin Dose Admin Ceftriaxone Sodium 1000 mg/ Sterile Water 10 ml @ 200 mls/hr ONCE ONCE IV 07/20/20 09:30 07/20/20 09:32 DC 07/20/20 09:48 200 MLS/HR Fentanyl Citrate 75 mcg ONCE ONCE IVP 07/20/20 07:45 07/20/20 07:46 DC 07/20/20 07:42 75 MCG Fentanyl Citrate 75 mcg ONCE ONCE IVP 07/20/20 10:45 07/20/20 10:46 DC 07/20/20 11:30 75 MCG Iohexol 100 ml ONCE ONCE IV 07/20/20 08:00 07/20/20 08:07 DC 07/20/20 08:30 100 ML Promethazine HCl 25 mg ONCE ONCE IVP 07/20/20 10:00 07/20/20 10:01 DC 07/20/20 10:02 25 MG Sodium Chloride 100 ml ONCE ONCE IV 07/20/20 08:00 07/20/20 08:07 DC 07/20/20 08:30 80 ML (SHAY ALFONSO MD) Vital Signs/I&O 07/20/20 06:52 Temp 38.0 Pulse 100 Resp 20 B/P (MAP) 171/99 (123) Pulse Ox 99 O2 Delivery Room Air (SHAY ALFONSO MD) Progress Progress Note #1: Time: 07:32 Progress Note Patient is being treated with Pepcid, Zofran, and IV fluids. Rapid Covid screen was positive. Progress Note #2: Time: 10:40 Progress Note Patient exhibits signs and symptoms of sepsis including elevated WBC, fever, and tachycardia with evidence of pyuria in his urine. Although some of these may be related to Covid, sepsis from UTI cannot be ruled out. Rocephin was initiated in the ER. He received a liter of IV fluids. I have reviewed prior urine cultures. I discussed the case with Dr. Dawson who is now in the emergency room to assess the patient. He is requesting more pain medication and a second dose of fentanyl was ordered. Phenergan was ordered for refractory nausea and vomiting. (SHAY ALFONSO MD) Diagnostic Imaging Diagonstic Imaging: CT Plain Films/CT/US/NM/MRI: abdomen, pelvis Comments CT abdomen and pelvis viewed by me and report reviewed. See report below: NAME: WAYLON MCNULTY MED REC#: [id number] PT STATUS: REG ER : 1965 PHYSICIAN: SHAY ALFONSO MD ADMIT DATE: 07/20/20/ER Signed Date of Exam:07/20/20 CT ABDOMEN/PELVIS W PROCEDURE: CT abdomen and pelvis with contrast. TECHNIQUE: Multiple contiguous axial images were obtained through the abdomen and pelvis after administration of intravenous contrast. Auto Exposure Controls were utilized during the CT exam to meet ALARA standards for radiation dose reduction. All CT scans use one or more of the following dose optimizing techniques: automated exposure control, MA and/or KvP adjustment based on patient size and exam type or iterative reconstruction. INDICATION: Pelvic pain, fever, and elevated white blood cell count. Covid 19 positive. COMPARISON: Multiple priors, most recently performed on 01/15/2020. FINDINGS: Multiple images are degraded by patient motion which diminishes detail, and interpretation was made in light of this technical confine. LOWER THORAX: Mild subsegmental dependent atelectasis in both lower lobes. Visualized heart is normal in size. LIVER: No acute abnormality or focal lesion. GALLBLADDER: No gallstones, gallbladder wall thickening, or pericholecystic fluid. BILE DUCTS: No biliary ductal dilatation. SPLEEN: Top normal in size measuring 13 cm in length. No focal lesion or acute abnormality. PANCREAS: Moderately atrophic; otherwise, unremarkable. No pancreatic ductal dilatation. ADRENAL GLANDS: No nodules. KIDNEYS AND URETERS: The kidneys are symmetric in size and demonstrate normal enhancement. There is a calyceal calculus measuring approximately 2 mm in the left lower pole collecting system. There is no renal calculus on the right. There is no hydronephrosis on either side. A subcentimeter focus of low-attenuation in the lower pole of the left kidney is too small to characterize but likely represents a cyst. No suspicious lesion is appreciated. No abnormality is noted in the visualized ureters. The patient is status post cystectomy with ileal conduit formation. STOMACH AND BOWEL: There is moderate wall thickening involving the 2nd and 3rd portions of the duodenum as well as the proximal jejunum. There is no evidence of obstruction. No inflammatory change involving the colon. No abnormality at the anastomotic suture lines in the terminal ileum or region of the rectum. APPENDIX: Surgically absent. PELVIC ORGANS/BLADDER: The bladder is surgically absent. The prostate gland is normal in size. PERITONEUM AND RETROPERITONEUM: No pneumoperitoneum. No abdominal free fluid or loculated collection. LYMPH NODES: No lymphadenopathy. VESSELS: Mild atherosclerotic calcification. Abdominal aorta is nonaneurysmal. No venous thrombosis. ABDOMINAL WALL: A left lower quadrant ostomy is again demonstrated. There is prominent fat adjacent to the ileal conduit, which is stable in appearance compared to multiple prior exams, without discrete hernia noted. Midline ventral abdominal scar is also again seen. BONES: Mild degenerative changes involve the spine. Bilateral pars interarticularis defect is noted involving the L3 vertebral body without associated anterolisthesis of L3 on L4. No acute osseous abnormality is identified. IMPRESSION: Wall thickening involving the duodenum and proximal jejunum, felt to reflect a nonspecific infectious/inflammatory enteritis. There is no evidence of pneumoperitoneum, obstruction, or involvement of the colon. Otherwise, no acute abdominal or pelvic pathology to account for the patient's symptoms. The patient is status post cystectomy with ileal conduit formation. Incidental note is made of a nonobstructing calyceal calculus in the left kidney. Other chronic and incidental findings are detailed above. The report was faxed to Infection Control by [email or web address]@9:01 AM. Dictated by: Dictated on workstation # [id number] Dict: 07/20/20829 Trans: 07/20/20929 ERNESTO [id number] Interpreted by: JOSÉ OH DO Electronically signed by: JOSÉ OH DO 07/20/20929 Diagonstic Imaging: Xray Plain Films/CT/US/NM/MRI: chest Comments Chest x-ray viewed by me and report reviewed. See report below: NAME: WAYLON MCNULTY MED REC#: [id number] PT STATUS: REG ER : 1965 PHYSICIAN: SHAY ALFONSO MD ADMIT DATE: 07/20/20/ER Draft Date of Exam:07/20/20 CHEST 1 VIEW, AP/PA ONLY INDICATION: sepsis. TECHNIQUE: Single view chest 8:09 AM. CORRELATION STUDY: 04/25/2017 FINDINGS: Right IJ Ldhrzu-b-Hxjn catheter tip over the SVC, stable. Mediastinal configuration unchanged. Vasculature however appears slightly more prominent. Lung palacios remain relatively clear without significant infiltrate. IMPRESSION: 1. Vascular perhaps very slightly more prominent from prior study but without overt failure otherwise acute findings of the chest. Dictated on workstation # [id number] Dict: 07/20/20832 Trans: 07/20/2037 [id number] [id number] Interpreted by: MARLON ARZOLA DO (SHAY ALFONSO MD) Departure Communication (Admissions) Time/Spoke to Admitting Phy: 10:40 Dr. Dawson (SHAY ALFONSO MD) Impression Primary Impression: Sepsis Qualified Codes: A41.9 - Sepsis, unspecified organism Additional Impressions: COVID-19 Nausea, vomiting, and diarrhea Gastroenteritis Urinary tract infection Qualified Codes: N39.0 - Urinary tract infection, site not specified Disposition: HOME, SELF-CARE Condition: Improved Admissions Decision to Admit Reason: Admit from ER (General) Decision to Admit/Date: Jul 20, 2020 Time/Decision to Admit Time: 09:15 (SHAY ALFONSO MD) Departure-Patient Inst. Referrals: NIKHIL PITTS DO (PCP) Primary Care Physician LINDA BENTLEY (Family) Primary Care Physician [employer] MED STUDENT Jul 20, 2020 07:10 SHAY ALFONSO MD Jul 20, 2020 07:33
[2020-07-20 07:20] LABS: BASOPHILS % (AUTO) 0 % (0-10); EOSINOPHILS % (AUTO) 0 % (0-10); HEMATOCRIT 44 % (40-54); HEMOGLOBIN 14.7 g/dL (13.3-17.7); LYMPHOCYTES # (AUTO) 1.3 10^3/uL (1.0-4.0); LYMPHOCYTES % (AUTO) 8 % (12-44); MEAN CORPUSCULAR HEMOGLOBIN 27 pg (25-34); MEAN CORPUSCULAR HGB CONC 34 g/dL (32-36); MEAN CORPUSCULAR VOLUME 80 fL (80-99); MEAN PLATELET VOLUME 10.7 fL (9.0-12.2); MONOCYTES # (AUTO) 0.5 10^3/uL (0.0-1.0); MONOCYTES % (AUTO) 3 % (0-12); NEUTROPHILS # (AUTO) 13.5 10^3/uL (1.8-7.8); NEUTROPHILS % (AUTO) 88 % (42-75); PLATELET COUNT 502 10^3/uL (130-400); WHITE BLOOD COUNT 15.5 10^3/uL (4.3-11.0)
[2020-07-20 07:30] LABS: ALBUMIN 4.5 GM/DL (3.2-4.5); CHLORIDE 104 MMOL/L (98-107); POTASSIUM 3.2 MMOL/L (3.6-5.0); SODIUM 139 MMOL/L (135-145)
[2020-07-20 07:32] LABS: CALCIUM 9.4 MG/DL (8.5-10.1)
[2020-07-20 07:33] LABS: GLUCOSE 202 MG/DL (70-105); TOTAL PROTEIN 8.1 GM/DL (6.4-8.2)
[2020-07-20 07:34] LABS: CARBON DIOXIDE 20 MMOL/L (21-32)
[2020-07-20 07:35] LABS: BILIRUBIN,TOTAL 0.8 MG/DL (0.1-1.0)
[2020-07-20 07:36] LABS: ALKALINE PHOSPHATASE 102 U/L (40-136)
[2020-07-20 07:37] LABS: CREATININE SERUM 0.97 MG/DL (0.60-1.30); GFR ESTIMATED > 60
[2020-07-20] MEDS ORDERED: fentaNYL INJECTION 100 MCG/2 ML AMP ONE (07:37)
[2020-07-20 07:38] LABS: BUN/CREATININE RATIO 18
[2020-07-20 07:39] LABS: ALANINE AMINOTRANSFERASE 22 U/L (0-55)
[2020-07-20 07:40] LABS: LIPASE 6 U/L (8-78); PROTHROMBIN TIME PATIENT 13.7 SEC (12.2-14.7)
[2020-07-20] MEDS ORDERED: fentaNYL INJECTION 100 MCG/2 ML AMP IVP ONE ×2 (07:45→10:45)
[2020-07-20 07:46] LABS: BILIRUBIN,URINE NEGATIVE (NEGATIVE); CLARITY,URINE SL CLOUDY; COLOR,URINE YELLOW; GLUCOSE, URINE (UA) NEGATIVE (NEGATIVE); KETONES,URINE 2+ (NEGATIVE); LEUKOCYTE ESTERASE ,URINE TRACE (NEGATIVE); NITRITE,URINE POSITIVE (NEGATIVE); PH,URINE 7.5 (5-9); PROTEIN,URINE 2+ (NEGATIVE)
[2020-07-20 07:56] LABS: AMORPHOUS SEDIMENT,UR LARGE AMOR URATES /LPF; BACTERIA,URINE LARGE /HPF; RBC,URINE 0-2 /HPF; SQUAMOUS EPITHELIAL CELL,UR 0-2 /HPF
[2020-07-20] MEDS ORDERED: NS 100 ML (IVPB) BAG IV ONE (08:00)
[2020-07-20] MEDS ORDERED: IOHEXOL 350 MG/ML 100 ML (OMNIPAQUE 350) VIAL IV ONE (08:00)
[2020-07-20] MEDS ORDERED: HOLD METFORMIN - RECEIVED CONTRAST 20 ML VIAL IV SCH (08:00)
[2020-07-20] MEDS ORDERED: CATHETER FLUSH 10 ML SYR IV PRN (08:00)
[2020-07-20 08:05] LABS: BAND NEUTROPHILS 1 %; LYMPHOCYTES % (MANUAL) 12 %; MONOCYTES % (MANUAL) 2 %; NEUTROPHILS % (MANUAL) 85 %; RBC MORPH NORMAL
--- NOTE | 2020-07-20 08:38 | Diagnostic Imaging Report ---
INDICATION: sepsis. TECHNIQUE: Single view chest 8:09 AM. CORRELATION STUDY: 04/25/2017 FINDINGS: Right IJ Yhtufq-l-Atrv catheter tip over the SVC, stable. Mediastinal configuration unchanged. Vasculature however appears slightly more prominent. Lung palacios remain relatively clear without significant infiltrate. IMPRESSION: 1. Vascular perhaps very slightly more prominent from prior study but without overt failure otherwise acute findings of the chest. Dictated by: Dictated on workstation # [id number]
--- NOTE | 2020-07-20 09:02 | Diagnostic Imaging Report ---
PROCEDURE: CT abdomen and pelvis with contrast. TECHNIQUE: Multiple contiguous axial images were obtained through the abdomen and pelvis after administration of intravenous contrast. Auto Exposure Controls were utilized during the CT exam to meet ALARA standards for radiation dose reduction. All CT scans use one or more of the following dose optimizing techniques: automated exposure control, MA and/or KvP adjustment based on patient size and exam type or iterative reconstruction. INDICATION: Pelvic pain, fever, and elevated white blood cell count. Covid 19 positive. COMPARISON: Multiple priors, most recently performed on 01/15/2020. FINDINGS: Multiple images are degraded by patient motion which diminishes detail, and interpretation was made in light of this technical confine. LOWER THORAX: Mild subsegmental dependent atelectasis in both lower lobes. Visualized heart is normal in size. LIVER: No acute abnormality or focal lesion. GALLBLADDER: No gallstones, gallbladder wall thickening, or pericholecystic fluid. BILE DUCTS: No biliary ductal dilatation. SPLEEN: Top normal in size measuring 13 cm in length. No focal lesion or acute abnormality. PANCREAS: Moderately atrophic; otherwise, unremarkable. No pancreatic ductal dilatation. ADRENAL GLANDS: No nodules. KIDNEYS AND URETERS: The kidneys are symmetric in size and demonstrate normal enhancement. There is a calyceal calculus measuring approximately 2 mm in the left lower pole collecting system. There is no renal calculus on the right. There is no hydronephrosis on either side. A subcentimeter focus of low-attenuation in the lower pole of the left kidney is too small to characterize but likely represents a cyst. No suspicious lesion is appreciated. No abnormality is noted in the visualized ureters. The patient is status post cystectomy with ileal conduit formation. STOMACH AND BOWEL: There is moderate wall thickening involving the 2nd and 3rd portions of the duodenum as well as the proximal jejunum. There is no evidence of obstruction. No inflammatory change involving the colon. No abnormality at the anastomotic suture lines in the terminal ileum or region of the rectum. APPENDIX: Surgically absent. PELVIC ORGANS/BLADDER: The bladder is surgically absent. The prostate gland is normal in size. PERITONEUM AND RETROPERITONEUM: No pneumoperitoneum. No abdominal free fluid or loculated collection. LYMPH NODES: No lymphadenopathy. VESSELS: Mild atherosclerotic calcification. Abdominal aorta is nonaneurysmal. No venous thrombosis. ABDOMINAL WALL: A left lower quadrant ostomy is again demonstrated. There is prominent fat adjacent to the ileal conduit, which is stable in appearance compared to multiple prior exams, without discrete hernia noted. Midline ventral abdominal scar is also again seen. BONES: Mild degenerative changes involve the spine. Bilateral pars interarticularis defect is noted involving the L3 vertebral body without associated anterolisthesis of L3 on L4. No acute osseous abnormality is identified. IMPRESSION: Wall thickening involving the duodenum and proximal jejunum, felt to reflect a nonspecific infectious/inflammatory enteritis. There is no evidence of pneumoperitoneum, obstruction, or involvement of the colon. Otherwise, no acute abdominal or pelvic pathology to account for the patient's symptoms. The patient is status post cystectomy with ileal conduit formation. Incidental note is made of a nonobstructing calyceal calculus in the left kidney. Other chronic and incidental findings are detailed above. The report was faxed to Infection Control by [email or web address]@9:01 AM. Dictated by: Dictated on workstation # [id number]
[2020-07-20] MEDS ORDERED: cefTRIAXone FOR IV USE 1,000 MG in WATER (STERILE) FOR INJECTION 10 ML IV ONE (09:30)
[2020-07-20] MEDS ORDERED: PROMETHAZINE INJ 25 MG/ML (PHENERGAN) AMP IVP ONE (10:00)
[2020-07-20 12:08] VITALS: BP 177/88
[2020-07-20 12:09] VITALS: BP 177/88
[2020-07-20] MEDS: NS W/KCL 20 MEQ/L 1,000 ML IV SCH ×2 (13:03→21:29)
[2020-07-20] MEDS: fentaNYL INJECTION 100 MCG/2 ML AMP IVP PRN ×3 (13:03→19:07)
[2020-07-20 16:48] VITALS: BP 159/84
[2020-07-20] MEDS ORDERED: SERTRALINE 100 MG (ZOLOFT) TAB PO PRN (17:15)
[2020-07-20] MEDS: oxyCODONE/APAP 10/325MG (PERCOCET 10) TABLET PO SCH (19:57)
[2020-07-20 20:58] VITALS: BP 157/87
[2020-07-20] MEDS ORDERED: PREGABALIN 225 MG PO SCH (21:00)
[2020-07-20] MEDS ORDERED: CLONAZEPAM 4 MG PO SCH (21:00)
[2020-07-20] MEDS ORDERED: NON-FORMULARY MEDICATION 1 EA EA (Oxycodone HCl 30 MG) PO SCH (21:00)
[2020-07-20] MEDS: ONDANSETRON 4 MG/2 ML (SDV) Z0FRAN IVP PRN (21:26)
[2020-07-20] MEDS: amLODIPine 10 MG (NORVASC) TAB PO SCH (21:29)
[2020-07-20] MEDS: clonazePAM 1 MG (KlonoPIN) TAB PO SCH (21:29)
[2020-07-20] MEDS: PREGABALIN 75 MG (LYRICA) CAP PO SCH (21:29)
[2020-07-21 00:27] VITALS: BP 165/84
[2020-07-21] MEDS: oxyCODONE/APAP 10/325MG (PERCOCET 10) TABLET PO SCH ×5 (00:31→23:59)
[2020-07-21] MEDS: fentaNYL INJECTION 100 MCG/2 ML AMP IVP PRN ×2 (01:09→05:05)
[2020-07-21] MEDS: PROMETHAZINE 25 MG (PHENERGAN) TAB PO PRN (01:16)
[2020-07-21 04:38] VITALS: BP 154/90
[2020-07-21] MEDS: NS W/KCL 20 MEQ/L 1,000 ML IV SCH ×3 (06:11→23:59)
[2020-07-21 06:56] LABS: HEMOGLOBIN 13.7 g/dL (13.3-17.7); MEAN PLATELET VOLUME 10.1 fL (9.0-12.2); WHITE BLOOD COUNT 16.8 10^3/uL (4.3-11.0)
[2020-07-21 07:20] LABS: ALANINE AMINOTRANSFERASE 19 U/L (0-55); ALBUMIN 3.9 GM/DL (3.2-4.5); ALKALINE PHOSPHATASE 89 U/L (40-136); BILIRUBIN,TOTAL 0.5 MG/DL (0.1-1.0); BUN/CREATININE RATIO 19; CALCIUM 8.4 MG/DL (8.5-10.1); CARBON DIOXIDE 22 MMOL/L (21-32); CHLORIDE 106 MMOL/L (98-107); CREATININE SERUM 0.83 MG/DL (0.60-1.30); GFR ESTIMATED > 60; GLUCOSE 107 MG/DL (70-105); SODIUM 140 MMOL/L (135-145); TOTAL PROTEIN 7.3 GM/DL (6.4-8.2)
[2020-07-21 07:30] VITALS: BP 165/67
[2020-07-21] MEDS ORDERED: ACETAMINOPHEN 500 MG TAB (TYLENOL) PO PRN (08:00)
[2020-07-21] MEDS: PREGABALIN 75 MG (LYRICA) CAP PO SCH ×2 (08:58→20:15)
[2020-07-21] MEDS: ENOXAPARIN 40 MG/0.4 ML (LOVENOX) SYR SC SCH (08:58)
[2020-07-21] MEDS: POTASSIUM CL 10MEQ/50ML IVPB 50 ML IV SCH ×4 (09:13→12:38)
[2020-07-21] MEDS: cefTRIAXone FOR IV USE 1,000 MG in WATER (STERILE) FOR INJECTION 10 ML IV SCH (11:52)
--- NOTE | 2020-07-21 11:54 | NUR ---
SPOKE WITH THE PT (CALLED THE ROOM PHONE) AND WENT THRU THE EXT MED HISTORY TO COMPLETE THE MED REC PT WAS ABLE TO NAME ALL HIS MEDICATIONS WELL WHEN/HOW HE TAKES EACH PT IS ADAMANT THAT HE DOES NOT TAKES SERTRALINE 100MG DAILY AND JUST TAKES IT NEEDED FOR EMOTIONS OTC MEDS: NONE
[2020-07-21 12:00] VITALS: BP 134/83
--- NOTE | 2020-07-21 12:18 | History & Physical ---
HPI History of Present Illness: Pt presented to the ER due to fever, nausea, vomiting and diarrhea. Denies shortness of breath or cough. Feeling much better today already. Has chronic abdominal pain and history of colon resection and bladder resection with ileal conduit. Source: patient Exam Limitations: no limitations Date seen by provider: Jul 21, 2020 Time Seen by Provider: 11:30 Attending Physician Janine Dawson MD PCP Jyotsna Teresa DO Consult Date of Admission Jul 20, 2020 at 10:50 Home Medications Home Medications Reviewed patient Home Medication Reconciliation performed by pharmacy medication reconciliations quality control technician and/or nursing. Patients Allergies have been reviewed. Allergies Coded Allergies: morphine (Verified Allergy, Intermediate, 01/01/17) codeine (Verified Adverse Reaction, Unknown, NAUSEA, 01/01/17) [id number] Hx Patient Social History 2nd Hand Smoke Exposure: No Recent Foreign Travel: No Contact w/other who traveled: No Recent Hopitalizations: No Recent Infectious Disease Expo: No Immunizations Up To Date Tetanus Booster (TDap): Unknown Past Medical History 1. Rectal Cancer Stage II [id number]- s/p chemotherapy and radiation stopped secondary to intolerance. Last chemo 07/16/14 2. Gastroparesis secondary #1 3. Severe Gastritis per EGD 07-30 Aleksandrao 4. Small hiatal hernia 3cm 07-30 Kido 5. Grade B reflux esophagitis 07/30 6. Recurrent episodes of nausea and vomiting secondary to #2, and #3 7. Bladder Removal 8. HTN 9. C-Diff colitis 10. Mood disorder with depression 11. Recurrent Headaches 12. Recurrent admissions for dehydration secondary and acute renal insufficiency secondary to #2, #3, #6 13. Recurrent hypokalemia and hypomagnesia secondary to other co-morbidities Past Surgical History 1. Placement of JJ stent for hydronephrosis 03-06-13 Rene 2. EGD 07-30 Aleksandrao, severe gastritis 3. Diverting loop ileostomy with colon resection 12-06-12 Joey 4. Reversal of ileostomy 04-18-13 5. Colonoscopy x2 by Dr. Aguilar 6. Nephrostomy tube placement with cystectomy 03/30 KU 7. Left Arm Fracture 04/2017 Family Medical History Significant Family History: CAD Under 55 Years Old, COPD, Diabetes, Hypertension Family History: Cataract 03 FATHER, Onset:Unknown Chest pain 03 FATHER, Onset:50's - 60 Family history: Allergy 03 MOTHER Family history: Arthritis 03 FATHER 03 MOTHER Family history: Asthma 03 MOTHER Family history: Cardiovascular disease 03 FATHER Family history: Diabetes mellitus 03 FATHER 03 MOTHER Family history: Hypertension 03 FATHER 03 MOTHER Headache 03 FATHER 03 MOTHER Heart disease 03 FATHER History of - respiratory disease 03 MOTHER Hypercholesterolemia 03 FATHER 03 MOTHER Kidney disease 03 MOTHER Psychotic disorder 03 MOTHER Visual impairment 03 FATHER 03 MOTHER No Family History of: Abdominal aortic aneurysm Dundy's disease Alcoholism Aphasia Cancer Cancer of colon Congenital heart disease Congestive heart failure Cystic fibrosis Dementia Dysphagia Family history: Alzheimer's disease Family history: Breast disease Family history: Coronary thrombosis Family history: Gastrointestinal disease Family history: Glaucoma Family history: Osteoporosis Family history: Thyroid disorder Hearing loss Hereditary disease History of - anemia History of - disorder History of drug abuse Human immunodeficiency virus (HIV) seropositivity Infertile Malignant neoplasm of lung Myocardial infarction Parkinson's disease Prostate cancer Seizure disorder Stroke Tuberculosis Review of Systems ([facility]) Constitutional: fever, malaise Respiratory: No cough, No short of breath Cardiovascular: No chest pain Gastrointestinal: abdominal pain, diarrhea, nausea, vomiting Genitourinary: no symptoms reported Musculoskeletal: no symptoms reported Skin: no symptoms reported Psychiatric/Neurological: No Symptoms Reported Reviewed Test Results Reviewed Test Results Lab Laboratory Tests Test 07/20/20 06:55 07/20/20 07:00 07/20/20 07:35 07/21/20 06:40 Range/Units White Blood Count 15.5 H 16.8 H 4.3-11.0 10^3/uL Red Blood Count 5.48 5.03 4.30-5.52 10^6/uL Hemoglobin 14.7 13.7 13.3-17.7 g/dL Hematocrit 44 41 40-54 % Mean Corpuscular Volume 80 81 80-99 fL Mean Corpuscular Hemoglobin 27 27 25-34 pg Mean Corpuscular Hemoglobin Concent 34 34 32-36 g/dL Red Cell Distribution Width 14.6 H 15.1 H 10.0-14.5 % Platelet Count 502 H 420 H 130-400 10^3/uL Mean Platelet Volume 10.7 10.1 9.0-12.2 fL Immature Granulocyte % (Auto) 1 % Neutrophils (%) (Auto) 88 H 42-75 % Lymphocytes (%) (Auto) 8 L 12-44 % Monocytes (%) (Auto) 3 0-12 % Eosinophils (%) (Auto) 0 0-10 % Basophils (%) (Auto) 0 0-10 % Neutrophils # (Auto) 13.5 H 1.8-7.8 10^3/uL Lymphocytes # (Auto) 1.3 1.0-4.0 10^3/uL Monocytes # (Auto) 0.5 0.0-1.0 10^3/uL Eosinophils # (Auto) 0.0 0.0-0.3 10^3/uL Basophils # (Auto) 0.0 0.0-0.1 10^3/uL Immature Granulocyte # (Auto) 0.2 H 0.0-0.1 10^3/uL Neutrophils % (Manual) 85 % Lymphocytes % (Manual) 12 % Monocytes % (Manual) 2 % Band Neutrophils 1 % Blood Morphology Comment NORMAL Prothrombin Time 13.7 12.2-14.7 SEC INR Comment 1.0 0.8-1.4 Activated Partial Thromboplast Time 33 24-35 SEC Sodium Level 139 140 135-145 MMOL/L Potassium Level 3.2 L 3.0 L 3.6-5.0 MMOL/L Chloride Level 104 106 98-107 MMOL/L Carbon Dioxide Level 20 L 22 21-32 MMOL/L Anion Gap 15 H 12 5-14 MMOL/L Blood Urea Nitrogen 17 16 7-18 MG/DL Creatinine 0.97 0.83 0.60-1.30 MG/DL Estimat Glomerular Filtration Rate > 60 > 60 BUN/Creatinine Ratio 18 19 Glucose Level 202 H 107 H 70-105 MG/DL Lactic Acid Level 1.79 0.50-2.00 MMOL/L Calcium Level 9.4 8.4 L 8.5-10.1 MG/DL Corrected Calcium 9.0 8.5 8.5-10.1 MG/DL Total Bilirubin 0.8 0.5 0.1-1.0 MG/DL Aspartate Amino Transf (AST/SGOT) 19 20 5-34 U/L Alanine Aminotransferase (ALT/SGPT) 22 19 0-55 U/L Alkaline Phosphatase 102 89 40-136 U/L Lactate Dehydrogenase 361 H 125-220 U/L C-Reactive Protein High Sensitivity 4.33 H 0.00-0.50 MG/DL Total Protein 8.1 7.3 6.4-8.2 GM/DL Albumin 4.5 3.9 3.2-4.5 GM/DL Lipase 6 L 8-78 U/L Procalcitonin 0.21 H <0.10 NG/ML Coronavirus 2019 (EVA) Positive H Negative Urine Color YELLOW Urine Clarity SL CLOUDY Urine pH 7.5 5-9 Urine Specific Lawrence 1.015 L 1.016-1.022 Urine Protein 2+ H NEGATIVE Urine Glucose (UA) NEGATIVE NEGATIVE Urine Ketones 2+ H NEGATIVE Urine Nitrite POSITIVE H NEGATIVE Urine Bilirubin NEGATIVE NEGATIVE Urine Urobilinogen 0.2 < = 1.0 MG/DL Urine Leukocyte Esterase TRACE H NEGATIVE Urine RBC (Auto) NEGATIVE NEGATIVE Urine RBC 0-2 /HPF Urine WBC 10-25 H /HPF Urine Squamous Epithelial Cells 0-2 /HPF Urine Crystals PRESENT H /LPF Urine Amorphous Sediment LARGE FLORES URATES H /LPF Urine Bacteria LARGE H /HPF Urine Casts NONE /LPF Urine Mucus NEGATIVE /LPF Urine Culture Indicated YES Radiology 07/20/20 CXR IMPRESSION: 1. Vascular perhaps very slightly more prominent from prior study but without overt failure otherwise acute findings of the chest. CT abd/pelvis 07/20/20: IMPRESSION: Wall thickening involving the duodenum and proximal jejunum, felt to reflect a nonspecific infectious/inflammatory enteritis. There is no evidence of pneumoperitoneum, obstruction, or involvement of the colon.Otherwise, no acute abdominal or pelvic pathology to account for the patient's symptoms. The patient is status post cystectomy with ileal conduit formation. Incidental note is made of a nonobstructing calyceal calculus in the left kidney." Physical Exam-([facility]) Physical Exam Vital Signs VS - Last 72 Hours, by Label 07/20/20 07/20/20 07/20/20 07/20/20 06:52 11:40 12:08 12:09 Temp 38.0 37.0 37.5 37.5 Pulse 100 89 108 108 Resp 20 18 18 18 B/P (MAP) 171/99 (123) 158/81 177/88 (117) 177/88 Pulse Ox 99 100 100 100 O2 Delivery Room Air Room Air Room Air Room Air 07/20/20 07/20/20 07/20/20 07/20/20 12:39 16:48 20:58 21:30 Temp 37.7 38.0 Pulse 103 107 Resp 18 20 B/P (MAP) 159/84 (109) 157/87 (110) Pulse Ox 100 95 96 O2 Delivery Room Air Room Air Room Air Room Air 07/20/20 07/21/20 07/21/20 07/21/20 21:58 00:27 04:38 07:30 Temp 37.5 36.2 37.2 37.5 Pulse 104 101 98 Resp 20 18 20 B/P (MAP) 165/84 (111) 154/90 (111) 165/67 (99) Pulse Ox 92 97 64 O2 Delivery Room Air Room Air Room Air 07/21/20 08:00 O2 Delivery Room Air Capillary Refill : Less Than 3 Seconds General Appearance: WD/WN, no apparent distress Respiratory: lungs clear, normal breath sounds Cardiovascular: regular rate, rhythm, no murmur Gastrointestinal: normal bowel sounds, soft, tenderness (greater on left), other (ileal conduit draining yellow urine) Extremities: no pedal edema Neurologic/Psychiatric: alert, normal mood/affect Skin: normal color, warm/dry Assessment/Plan Assessment/Plan Admission Status: Inpatient Order (span 2 midnights) Reason for Inpatient Admission: Sepsis with underlying comorbidities (1) Sepsis Status: Acute Assessment & Plan: Suspect secondary to UTI. Ceftriaxone. No signs of severe sepsis. Qualifiers: Qualified Codes: A41.9 - Sepsis, unspecified organism (2) Urinary tract infection Status: Acute Assessment & Plan: Ceftriaxone, previous cultures have shown bacteria sensitive to ceftriaxone. Difficult to determine pathogenicity of organisms given ileeal conduit but based on leukocytosis and fever, suspect true infection at this time. Qualifiers: (3) Hypertension Status: Chronic Assessment & Plan: Resume home medications Qualifiers: Qualified Codes: I10 - Essential (primary) hypertension (4) Polyneuropathy Status: Chronic Assessment & Plan: Resume home medications. 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 (7) Hypokalemia Status: Acute Assessment & Plan: Replace and follow. (8) History of rectal cancer Status: Chronic (9) COVID-19 Status: Acute Assessment & Plan: No respiratory issues, monitor. (10) Nausea, vomiting, and diarrhea Status: Acute Assessment & Plan: Anti-emetics, IVF (11) DVT prophylaxis Status: Acute Assessment & Plan: Enoxaparin Clinical Quality Measures DVT/VTE Risk/Contraindication: Risk Factor Score Per Nursin RFS Level Per Nursing on Admit: 4+=Very High JANINE DAWSON MD Jul 21, 2020 12:18
[2020-07-21] MEDS: PANTOPRAZOLE 40 MG (PROTONIX) TAB PO SCH (12:38)
--- NOTE | 2020-07-21 14:48 | NUR ---
"RD ASSESSMENT PMHx: CA(colorectal); hypercholesterolemia; HTN; chronic UTI; colitis; GERD; chronic constipation; PT INTERACTION: Received dietary consult for MST score. Note pt is currently in COVID isolation, per chart review. Note all diet information for nutrition assessment is per Ángela RN or per chart review. Ángela states current appetite appears to be getting better. Note avg PO intake 25-50% x1d, per chart review. Ángela states no issues with n/v/c/d today, and that the pt states his last BM was 1/3. Note ED report stated pt admitted with issues of n/v/d, per chart review. Note recent 6# wt loss x6mon, per chart review. Note unable to complete visual assessment d/t isolation precautions. Note BMI of 32.5 (Obese I for age). Given PO intake and wt hx, pt does not meet criteria for malnutrition per ASPEN guidelines. Est. kcal needs: 9810-6051 kcal | 15-20 kcal/kg Est. Pro needs: 76-94 g Pro | 0.8-1.0 g Pro/kg PES STATEMENT: Inadequate oral intake (NI-2.1) related to loss of appetite, nausea, vomiting, and diarrhea, as evidenced by chart review, communication with care staff, and avg PO intake 25-50% x1d. INTERVENTION: Continue with current diet order of Regular diet. Add Ensure Enlive to meals TID, for increased kcal intake. Provides 350 kcal and 20 g Pro per serving. Will continue to follow and reassess as pt needs, intake, and status change. Drake LORENZO, MS RD [phone] cell"
[2020-07-21 16:24] VITALS: BP 114/67
[2020-07-21 20:14] VITALS: BP 136/76
[2020-07-21] MEDS: amLODIPine 10 MG (NORVASC) TAB PO SCH (20:15)
[2020-07-21] MEDS: clonazePAM 1 MG (KlonoPIN) TAB PO SCH (20:15)
[2020-07-22 00:21] VITALS: BP 106/59
[2020-07-22] MEDS: fentaNYL INJECTION 100 MCG/2 ML AMP IVP PRN ×3 (04:22→22:19)
[2020-07-22] MEDS: oxyCODONE/APAP 10/325MG (PERCOCET 10) TABLET PO SCH ×3 (06:27→17:33)
[2020-07-22 06:44] LABS: HEMOGLOBIN 12.7 g/dL (13.3-17.7); MEAN PLATELET VOLUME 10.3 fL (9.0-12.2); WHITE BLOOD COUNT 7.9 10^3/uL (4.3-11.0)
[2020-07-22 07:01] LABS: ALBUMIN 3.8 GM/DL (3.2-4.5); CHLORIDE 108 MMOL/L (98-107); POTASSIUM 3.5 MMOL/L (3.6-5.0); SODIUM 138 MMOL/L (135-145)
[2020-07-22 07:02] LABS: CALCIUM 8.1 MG/DL (8.5-10.1)
[2020-07-22 07:03] LABS: GLUCOSE 80 MG/DL (70-105); TOTAL PROTEIN 6.8 GM/DL (6.4-8.2)
[2020-07-22 07:04] LABS: CARBON DIOXIDE 22 MMOL/L (21-32)
[2020-07-22 07:05] LABS: BILIRUBIN,TOTAL 0.5 MG/DL (0.1-1.0)
[2020-07-22 07:06] LABS: ALKALINE PHOSPHATASE 84 U/L (40-136)
[2020-07-22 07:07] LABS: CREATININE SERUM 1.02 MG/DL (0.60-1.30); GFR ESTIMATED > 60
[2020-07-22 07:08] LABS: BUN/CREATININE RATIO 15
[2020-07-22 07:10] LABS: ALANINE AMINOTRANSFERASE 24 U/L (0-55)
[2020-07-22] MEDS: NS W/KCL 20 MEQ/L 1,000 ML IV SCH ×3 (07:17→20:22)
[2020-07-22 08:00] VITALS: BP 135/89
[2020-07-22] MEDS ORDERED: KCL 20 MEQ TAB (K-DUR) PO NR (08:15)
[2020-07-22] MEDS: PREGABALIN 75 MG (LYRICA) CAP PO SCH ×2 (08:33→20:22)
[2020-07-22] MEDS: ENOXAPARIN 40 MG/0.4 ML (LOVENOX) SYR SC SCH (08:33)
--- NOTE | 2020-07-22 08:44 | NUR ---
ATTEMPT TO ASSIST KAY JASBIR REACHING FAMILY. PATIENT IS UPSET 'S PHONE IS OFF; THIS RN ATTEMPTED TO REACH , RECORDING STATES UNABLE TO RECEIVE CALLS, ASSISTED PATIENT IN CALLING NEXT OF KIN, MOTHER. VOICEMAIL LEFT.
[2020-07-22] MEDS: ONDANSETRON 4 MG/2 ML (SDV) Z0FRAN IVP PRN (09:43)
--- NOTE | 2020-07-22 09:48 | NUR ---
ZOFRAN FOR C/O NAUSEA. NO EMESIS. CRACKERS, COOL CLOTH PROVIDED. PATIENT REPORTS THIS IS A DAILY OCCURRENCE. REPORTS BM TODAY, SOFT, BROWN, MODERATE IN SIZE. RR 14, SPO2 95% ON RA. NO FURTHER C/O. CONT TO MONITOR.
--- NOTE | 2020-07-22 10:30 | NUR ---
PATIENT RESTING EYES CLOSED, RR EVEN AND UNLABORED. AWAKENS EASILY. STATES HIS NAUSEA IS A 'LITTLE' BETTER. CONT TO MONITOR.
--- NOTE | 2020-07-22 11:33 | Progress Note ---
Subjective Subjective/Events-last exam Afebrile, labs improved, but he states he had worsening pain overnight and feels like he is having a hard time breathing and like he was waking up short of breath. He denies history of sleep apnea. Focused Exam Lactate Level 07/20/20 06:55: Lactic Acid Level 1.79 Objective Exam Last Set of Vital Signs Vital Signs Date Time Temp Pulse Resp B/P (MAP) Pulse Ox O2 Delivery O2 Flow Rate FiO2 07/22/20 08:00 37.6 96 18 135/89 (104) 95 Room Air 07/21/20 13:16 5.00 Capillary Refill : Less Than 3 Seconds I&O Intake and Output 07/22/20 00:00 Intake Total 1600 ml Output Total 1100 ml Balance 500 ml Intake Oral 1600 ml Output Urine Total 1100 ml General: Alert, No Acute Distress Lungs: Clear to Auscultation, Normal Air Movement Heart: Regular Rate, No Murmurs Abdomen: Normal Bowel Sounds, Soft, Other (diffuse ttp) Neuro: Normal Speech Psych/Mental Status: Mood NL Results/Procedures Lab Laboratory Tests 07/22/20 06:04: White Blood Count 7.9, Red Blood Count 4.71, Hemoglobin 12.7L, Hematocrit 40, Mean Corpuscular Volume 84, Mean Corpuscular Hemoglobin 27, Mean Corpuscular Hemoglobin Concent 32, Red Cell Distribution Width 14.7H, Platelet Count 284, Mean Platelet Volume 10.3, Sodium Level 138, Potassium Level 3.5L, Chloride Level 108H, Carbon Dioxide Level 22, Anion Gap 8, Blood Urea Nitrogen 15, Creatinine 1.02, Estimat Glomerular Filtration Rate > 60, BUN/Creatinine Ratio 15, Glucose Level 80, Calcium Level 8.1L, Corrected Calcium 8.3L, Total Bilirubin 0.5, Aspartate Amino Transf (AST/SGOT) 39H, Alanine Aminotransferase (ALT/SGPT) 24, Alkaline Phosphatase 84, Total Protein 6.8, Albumin 3.8 Microbiology 07/20/20 Blood Culture - Preliminary, Resulted Staph, Coag Neg (BUSINESS SYSTEMS ADVISOR) 07/20/20 Urine Culture - Preliminary, Resulted Escherichia coli Escherichia coli#2 Klebsiella pneumoniae Enterococcus faecalis Susceptibility To Follow See Comments 07/20/20 Influenza Types A,B Antigen (PEPE) - Final, Complete Radiology 07/20/20 CXR IMPRESSION: 1. Vascular perhaps very slightly more prominent from prior study but without overt failure otherwise acute findings of the chest. CT abd/pelvis 07/20/20: IMPRESSION: Wall thickening involving the duodenum and proximal jejunum, felt to reflect a nonspecific infectious/inflammatory enteritis. There is no evidence of pneumoperitoneum, obstruction, or involvement of the colon.Otherwise, no acute abdominal or pelvic pathology to account for the patient's symptoms. The patient is status post cystectomy with ileal conduit formation. Incidental note is made of a nonobstructing calyceal calculus in the left kidney. Assessment/Plan Assessment/Plan (1) Sepsis Status: Acute Assessment & Plan: Suspect secondary to UTI. Ceftriaxone. No signs of severe sepsis. 07/22 improved, WBC down to normal, platelets down to normal. Continue ceftriaxone. Urine culture with multiple bacteria as expected due to ileal conduit status. Qualifiers: Qualified Codes: A41.9 - Sepsis, unspecified organism (2) Urinary tract infection Status: Acute Assessment & Plan: Ceftriaxone, previous cultures have shown bacteria sensitive to ceftriaxone. Difficult to determine pathogenicity of organisms given ileeal conduit but based on leukocytosis and fever, suspect true infection at this time. Culture with multiple bacteria, sensitivities pending. Qualifiers: (3) Hypertension Status: Chronic Assessment & Plan: Resume home medications Qualifiers: Qualified Codes: I10 - Essential (primary) hypertension (4) Polyneuropathy Status: Chronic Assessment & Plan: Resume home medications. 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 (7) Hypokalemia Status: Acute Assessment & Plan: Replace and follow. (8) History of rectal cancer Status: Chronic (9) COVID-19 Status: Acute Assessment & Plan: No respiratory issues, monitor. 07/22 reporting shortness of breath but without documented hypoxia to date, monitor closely. (10) Nausea, vomiting, and diarrhea Status: Acute Assessment & Plan: Anti-emetics, IVF (11) DVT prophylaxis Status: Acute Assessment & Plan: Enoxaparin Clinical Quality Measures DVT/VTE Risk/Contraindication: Risk Factor Score Per Nursin RFS Level Per Nursing on Admit: 4+=Very High JANINE HERNDON MD Jul 22, 2020 11:33
[2020-07-22] MEDS: cefTRIAXone FOR IV USE 1,000 MG in WATER (STERILE) FOR INJECTION 10 ML IV SCH (11:55)
[2020-07-22] MEDS: PROMETHAZINE 25 MG (PHENERGAN) TAB PO PRN (11:58)
--- NOTE | 2020-07-22 11:59 | NUR ---
PHENERGAN FOR C/O NAUSEA. DENIES FURHTER NEEDS OR C/O. NO DYSPNEA NOTED. RATES PAIN 8/10 IN ABDOMEN THAT IS CHRONIC. PATIENT REPORTS HE TAKES NARCOTICS AT HOME FOR THIS SAME UNCHANGED PAIN HE IS C/O AT THIS TIME. CONT TO MONITOR. SCHEDULED NARCOTICS ADMIN ORDERED
[2020-07-22] MEDS: PANTOPRAZOLE 40 MG (PROTONIX) TAB PO SCH (12:13)
[2020-07-22 16:06] VITALS: BP 132/78
[2020-07-22] MEDS: clonazePAM 1 MG (KlonoPIN) TAB PO SCH (20:23)
[2020-07-22] MEDS: amLODIPine 10 MG (NORVASC) TAB PO SCH (20:23)
[2020-07-22 23:25] VITALS: BP 124/68
[2020-07-23] MEDS: oxyCODONE/APAP 10/325MG (PERCOCET 10) TABLET PO SCH ×5 (00:09→23:01)
[2020-07-23] MEDS: NS W/KCL 20 MEQ/L 1,000 ML IV SCH ×3 (03:41→21:14)
[2020-07-23 06:17] LABS: HEMOGLOBIN 11.8 g/dL (13.3-17.7); MEAN PLATELET VOLUME 10.5 fL (9.0-12.2)
[2020-07-23 06:46] LABS: ALBUMIN 3.6 GM/DL (3.2-4.5); CHLORIDE 107 MMOL/L (98-107); POTASSIUM 3.6 MMOL/L (3.6-5.0); SODIUM 138 MMOL/L (135-145)
[2020-07-23 06:47] LABS: CALCIUM 8.1 MG/DL (8.5-10.1)
[2020-07-23 06:48] LABS: GLUCOSE 83 MG/DL (70-105); TOTAL PROTEIN 6.2 GM/DL (6.4-8.2)
[2020-07-23 06:49] LABS: CARBON DIOXIDE 16 MMOL/L (21-32)
[2020-07-23 06:50] LABS: BILIRUBIN,TOTAL 0.4 MG/DL (0.1-1.0)
[2020-07-23 06:52] LABS: ALKALINE PHOSPHATASE 81 U/L (40-136); CREATININE SERUM 0.95 MG/DL (0.60-1.30); GFR ESTIMATED > 60
[2020-07-23 06:53] LABS: BUN/CREATININE RATIO 9
[2020-07-23 06:55] LABS: ALANINE AMINOTRANSFERASE 26 U/L (0-55)
[2020-07-23 08:00] VITALS: BP 135/78
[2020-07-23] MEDS: PREGABALIN 75 MG (LYRICA) CAP PO SCH ×2 (08:26→21:14)
[2020-07-23] MEDS: ENOXAPARIN 40 MG/0.4 ML (LOVENOX) SYR SC SCH (08:27)
[2020-07-23] MEDS: fentaNYL INJECTION 100 MCG/2 ML AMP IVP PRN ×4 (09:33→21:16)
[2020-07-23] MEDS: ONDANSETRON 4 MG/2 ML (SDV) Z0FRAN IVP PRN ×2 (09:33→18:15)
[2020-07-23] MEDS: cefTRIAXone FOR IV USE 1,000 MG in WATER (STERILE) FOR INJECTION 10 ML IV SCH (12:15)
[2020-07-23] MEDS: PANTOPRAZOLE 40 MG (PROTONIX) TAB PO SCH (12:16)
[2020-07-23] MEDS: PROMETHAZINE 25 MG (PHENERGAN) TAB PO PRN ×2 (12:21→21:14)
[2020-07-23 15:34] VITALS: BP 128/77
--- NOTE | 2020-07-23 15:51 | Progress Note ---
Subjective Subjective/Events-last exam States breathing higgins he is feeling better. Ate breakfast and took his medications this AM and vomited and had a bout of diarrhea. Review of Systems Pulmonary: No Dyspnea, No Cough Cardiovascular: No: Chest Pain, Palpitations Gastrointestinal: Nausea, Vomiting, Diarrhea Neurological: No: Weakness Objective Exam Last Set of Vital Signs Vital Signs Date Time Temp Pulse Resp B/P (MAP) Pulse Ox O2 Delivery O2 Flow Rate FiO2 07/23/20 15:34 36.6 80 18 128/77 (94) 95 Room Air 07/21/20 13:16 5.00 Capillary Refill : Less Than 3 Seconds I&O Intake and Output 07/23/20 00:00 Intake Total 3130 ml Output Total 2925 ml Balance 205 ml Intake Oral 1910 ml IV Total 1220 ml Output Urine Total 2925 ml # Bowel Movements 1 General: Alert, Oriented X3, No Acute Distress Lungs: Clear to Auscultation, Normal Air Movement Heart: Regular Rate, No Murmurs Abdomen: Normal Bowel Sounds, Soft, No Tenderness, No Masses, Other (No rashes or skin lesions around urostomy) Extremities: No Edema, No Tenderness/Swelling Neuro: Normal Speech, Sensation Intact, Cranial Nerves 3-12 NL Results/Procedures Lab Laboratory Tests 07/23/20 05:45: White Blood Count 6.0, Red Blood Count 4.31, Hemoglobin 11.8L, Hematocrit 36L, Mean Corpuscular Volume 83, Mean Corpuscular Hemoglobin 27, Mean Corpuscular Hemoglobin Concent 33, Red Cell Distribution Width 14.3, Platelet Count 264, Mean Platelet Volume 10.5, Sodium Level 138, Potassium Level 3.6, Chloride Level 107, Carbon Dioxide Level 16L, Anion Gap 15H, Blood Urea Nitrogen 9, Creatinine 0.95, Estimat Glomerular Filtration Rate > 60, BUN/Creatinine Ratio 9, Glucose Level 83, Calcium Level 8.1L, Corrected Calcium 8.4L, Total Bilirubin 0.4, Aspartate Amino Transf (AST/SGOT) 33, Alanine Aminotransferase (ALT/SGPT) 26, Alkaline Phosphatase 81, Total Protein 6.2L, Albumin 3.6 Microbiology 07/20/20 Blood Culture - Preliminary, Resulted Staph, Coag Neg (CHANGE NUMBER OPERATOR) 07/20/20 Urine Culture - Final, Complete Escherichia coli Escherichia coli#2 Klebsiella pneumoniae Enterococcus faecalis 07/20/20 Influenza Types A,B Antigen (PEPE) - Final, Complete Radiology 07/20/20 CXR IMPRESSION: 1. Vascular perhaps very slightly more prominent from prior study but without overt failure otherwise acute findings of the chest. CT abd/pelvis 07/20/20: IMPRESSION: Wall thickening involving the duodenum and proximal jejunum, felt to reflect a nonspecific infectious/inflammatory enteritis. There is no evidence of pneumoperitoneum, obstruction, or involvement of the colon.Otherwise, no acute abdominal or pelvic pathology to account for the patient's symptoms. The patient is status post cystectomy with ileal conduit formation. Incidental note is made of a nonobstructing calyceal calculus in the left kidney. Assessment/Plan Assessment/Plan (1) Sepsis Status: Resolved Assessment & Plan: Suspect secondary to UTI. Ceftriaxone. No signs of severe sepsis. 07/22 improved, WBC down to normal, platelets down to normal. Continue ceftriaxone. Urine culture with multiple bacteria as expected due to ileal conduit status. Qualifiers: Qualified Codes: A41.9 - Sepsis, unspecified organism (2) Urinary tract infection Status: Acute Assessment & Plan: Ceftriaxone, previous cultures have shown bacteria sensitive to ceftriaxone. Difficult to determine pathogenicity of organisms given ileeal conduit but based on leukocytosis and fever, suspect true infection at this time. Culture with multiple bacteria, sensitivities pending. Qualifiers: (3) Hypertension Status: Chronic Assessment & Plan: Resume home medications Qualifiers: Qualified Codes: I10 - Essential (primary) hypertension (4) Polyneuropathy Status: Chronic Assessment & Plan: Resume home medications. 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 (7) Hypokalemia Status: Acute Assessment & Plan: Replace and follow. (8) History of rectal cancer Status: Chronic (9) COVID-19 Status: Acute Assessment & Plan: No respiratory issues, monitor. 07/22 reporting shortness of breath but without documented hypoxia to date, monitor closely. 07/23: At baseline, no shortness of breath (10) Nausea, vomiting, and diarrhea Status: Acute Assessment & Plan: Anti-emetics, IVF (11) DVT prophylaxis Status: Acute Assessment & Plan: Enoxaparin Clinical Quality Measures DVT/VTE Risk/Contraindication: Risk Factor Score Per Nursin RFS Level Per Nursing on Admit: 4+=Very High GAULT,WARREN R MD Jul 23, 2020 15:51
[2020-07-23] MEDS: clonazePAM 1 MG (KlonoPIN) TAB PO SCH (21:15)
[2020-07-23] MEDS: amLODIPine 10 MG (NORVASC) TAB PO SCH (21:16)
[2020-07-24] VITALS: BP 110/69
[2020-07-24] MEDS: NS W/KCL 20 MEQ/L 1,000 ML IV SCH (05:19)
[2020-07-24] MEDS: oxyCODONE/APAP 10/325MG (PERCOCET 10) TABLET PO SCH ×2 (05:20→11:01)
[2020-07-24] MEDS: fentaNYL INJECTION 100 MCG/2 ML AMP IVP PRN ×4 (05:20→12:34)
[2020-07-24 06:22] LABS: BASOPHILS % (AUTO) 0 % (0-10); EOSINOPHILS # (AUTO) 0.4 10^3/uL (0.0-0.3); EOSINOPHILS % (AUTO) 6 % (0-10); HEMATOCRIT 40 % (40-54); LYMPHOCYTES # (AUTO) 1.8 10^3/uL (1.0-4.0); LYMPHOCYTES % (AUTO) 29 % (12-44); MEAN CORPUSCULAR HEMOGLOBIN 27 pg (25-34); MEAN CORPUSCULAR HGB CONC 33 g/dL (32-36); MEAN CORPUSCULAR VOLUME 83 fL (80-99); MEAN PLATELET VOLUME 10.3 fL (9.0-12.2); MONOCYTES # (AUTO) 0.3 10^3/uL (0.0-1.0); MONOCYTES % (AUTO) 5 % (0-12); NEUTROPHILS # (AUTO) 3.8 10^3/uL (1.8-7.8); NEUTROPHILS % (AUTO) 59 % (42-75); PLATELET COUNT 287 10^3/uL (130-400); WHITE BLOOD COUNT 6.5 10^3/uL (4.3-11.0)
[2020-07-24 06:36] LABS: CHLORIDE 105 MMOL/L (98-107); POTASSIUM 3.7 MMOL/L (3.6-5.0); SODIUM 137 MMOL/L (135-145)
[2020-07-24 06:37] LABS: CALCIUM 8.5 MG/DL (8.5-10.1)
[2020-07-24 06:38] LABS: GLUCOSE 74 MG/DL (70-105)
[2020-07-24 06:40] LABS: CARBON DIOXIDE 20 MMOL/L (21-32)
[2020-07-24 06:42] LABS: CREATININE SERUM 0.93 MG/DL (0.60-1.30); GFR ESTIMATED > 60
[2020-07-24 06:43] LABS: BUN/CREATININE RATIO 6
[2020-07-24 08:00] VITALS: BP 119/76
[2020-07-24] MEDS: ENOXAPARIN 40 MG/0.4 ML (LOVENOX) SYR SC SCH (08:13)
[2020-07-24] MEDS: PREGABALIN 75 MG (LYRICA) CAP PO SCH (08:16)
[2020-07-24] MEDS: PROMETHAZINE 25 MG (PHENERGAN) TAB PO PRN (09:52)
[2020-07-24] MEDS: PANTOPRAZOLE 40 MG (PROTONIX) TAB PO SCH (11:01)
[2020-07-24] MEDS: cefTRIAXone FOR IV USE 1,000 MG in WATER (STERILE) FOR INJECTION 10 ML IV SCH (11:01)
--- NOTE | 2020-07-24 11:15 | Discharge Summary ---
Diagnosis/Chief Complaint Date of Admission Jul 20, 2020 at 10:50 Date of Discharge Discharge Diagnosis Problems/Diagnosis: (1) Sepsis Assessment & Plan: Suspect secondary to UTI. Ceftriaxone. No signs of severe sepsis. 07/22 improved, WBC down to normal, platelets down to normal. Continue ceftriaxone. Urine culture with multiple bacteria as expected due to ileal conduit status. Qualifiers: Qualified Codes: A41.9 - Sepsis, unspecified organism Status: Resolved Resolution Date/Time: 07/23/20 @ 15:52 (2) Urinary tract infection Assessment & Plan: Ceftriaxone, previous cultures have shown bacteria sensitive to ceftriaxone. Difficult to determine pathogenicity of organisms given ileeal conduit but based on leukocytosis and fever, suspect true infection at this time. Culture with multiple bacteria, sensitivities pending. Qualifiers: Status: Acute (3) Hypertension Assessment & Plan: Resume home medications Qualifiers: Qualified Codes: I10 - Essential (primary) hypertension Status: Chronic (4) Polyneuropathy Assessment & Plan: Resume home medications. 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 Status: Chronic (7) Hypokalemia Assessment & Plan: Replace and follow. Status: Acute (8) History of rectal cancer Status: Chronic (9) COVID-19 Assessment & Plan: No respiratory issues, monitor. 07/22 reporting shortness of breath but without documented hypoxia to date, monitor closely. 07/23: At baseline, no shortness of breath Status: Acute (10) Nausea, vomiting, and diarrhea Assessment & Plan: Anti-emetics, IVF Status: Acute (11) DVT prophylaxis Assessment & Plan: Enoxaparin Status: Acute Chief Complaint/HPI Chief Complaint/HPI Pt presented to the ER due to fever, nausea, vomiting and diarrhea. Denies shortness of breath or cough. Feeling much better today already. Has chronic abdominal pain and history of colon resection and bladder resection with ileal conduit. Discharge Summary-Simple/Stand Consultations Discharge Physical Examination Allergies: Coded Allergies: morphine (Verified Allergy, Intermediate, 01/01/17) codeine (Verified Adverse Reaction, Unknown, NAUSEA, 01/01/17) Vitals & I&Os Vital Sign - Last 12Hours Date Time Temp Pulse Resp B/P (MAP) Pulse Ox O2 Delivery O2 Flow Rate FiO2 07/24/20 08:00 36.5 89 20 119/76 (90) 98 Room Air 07/21/20 13:16 5.00 Intake and Output 07/24/20 00:00 Intake Total 2010 ml Output Total 2175 ml Balance -165 ml Hospital Course See final discharge diagnosis. Radiology Reviewed 07/20/20 CXR IMPRESSION: 1. Vascular perhaps very slightly more prominent from prior study but without overt failure otherwise acute findings of the chest. CT abd/pelvis 07/20/20: IMPRESSION: Wall thickening involving the duodenum and proximal jejunum, felt to reflect a nonspecific infectious/inflammatory enteritis. There is no evidence of pneumoperitoneum, obstruction, or involvement of the colon.Otherwise, no acute abdominal or pelvic pathology to account for the patient's symptoms. The patient is status post cystectomy with ileal conduit formation. Incidental note is made of a nonobstructing calyceal calculus in the left kidney. Discharge Instructions to patient/family Please see electronic discharge instructions given to patient. Discharge Medications Reviewed and agree with Discharge Medication list on patient's Discharge Instruction sheet Clinical Quality Measures DVT/VTE Risk/Contraindication: Risk Factor Score Per Nursin RFS Level Per Nursing on Admit: 4+=Very High WARREN LUNA MD Jul 24, 2020 11:15
[2020-07-24] MEDS ORDERED: PROM25TA14 PO (11:19)
[2020-07-24] MEDS ORDERED: CEFD300C3 PO (11:19)
--- NOTE | 2020-07-24 11:19 | Discharge Summary ---
Discharge [facility] Reconcile Patient Problems Problems Reviewed?: Yes Discharge Medications New, Converted or Re-Newed RX: Transmitted to Pharmacy New Medications: Cefdinir (Cefdinir) 300 Mg Capsule 300 MG PO BID for 3 Days, #6 CAP Continued Medications: Amlodipine Besylate (Amlodipine Besylate) 10 Mg Tablet 10 MG PO HS, TAB Clonazepam (Clonazepam) 2 Mg Tablet 4 MG PO HS, TAB TAKES 2 (2MG) TABS Oxycodone HCl (Oxycodone HCl) 30 Mg Tablet 30 MG PO BID, TAB Oxycodone HCl/Acetaminophen (Oxycodone-Acetaminophen 10-325) 1 Each Tablet 1 EA PO Q6H, TAB Pantoprazole Sodium (Pantoprazole Sodium) 40 Mg Tablet.dr 40 MG PO 1200, TAB Pregabalin (Pregabalin) 225 Mg Capsule 225 MG PO BID, CAP Promethazine HCl (Promethazine Tablet) 25 Mg Tablet 25 MG PO BID PRN for NAUSEA/VOMITING-2ND LINE, #14 TAB (This prescription has been renewed) Sertraline HCl (Sertraline HCl) 100 Mg Tablet 100 MG PO DAILY PRN for EMOTIONS, TAB Patient Instructions Goal/Follow Up Appt: Next week with PCP at [facility] Activity & Diet Discharge Diet: ADA Diet Activity as Tolerated: Yes Orders-Post D/C & Referrals Pneu Vac Indicated: Yes WARREN LUNA MD Jul 24, 2020 11:19
[2020-07-24 14:20] VITALS: BP 119/76
--- NOTE | 2020-07-24 14:20 | NUR ---
DISMISSED PER W/C, ACCOMPANIED BY STAFF, ALERT AND ORIENTED, DENIES PAIN OR SOB AT THIS TIME, RESP EVEN, O2 SAT 96 PERCENT, IV DC, SITE WITHOUT REDNESS OR SWELLING, VERBALIZED UNDERSTANDING OF DISCHARGE INSTRUCTIONS.
== END 2020-07-24 14:20 | disposition home or self-care (01) | DRG 871 ==
LOC: EDUNIT# 06:46 → ER 06:47 → 4TH 10:50
PROVIDERS: ADMIT Family Medicine; ATTEND Family Medicine
DX: A41.9 Sepsis, unspecified organism (principal); U07.1 COVID-19; N39.0 Urinary tract infection, site not specified; C20 Malignant neoplasm of rectum; K31.84 Gastroparesis; K21.9 Gastro-esophageal reflux disease without esophagitis; I10 Essential (primary) hypertension; F32.9 Major depressive disorder, single episode, unspecified; G62.9 Polyneuropathy, unspecified; G89.29 Other chronic pain; R10.9 Unspecified abdominal pain; E87.6 Hypokalemia; R11.2 Nausea with vomiting, unspecified; R19.7 Diarrhea, unspecified; Z92.21 Personal history of antineoplastic chemotherapy
CPT/HCPCS: 36415; 71045; 74177; 80048; 80053; 81000; 83605; 83615; 83690; 84145; 85007; 85025; 85027; 85610; 85730; 86141; 87040; 87077; 87088; 87186; 87635; 87804

== ENCOUNTER 2020-09-21 14:54 | Inpatient (IN) | payer MEDICARE, MEDICAID ==
[~2020-09-21] VITALS: Ht 170.1 cm; Wt 90.7 kg
[~2020-09-21 14:54] MED LIST changes: -LISI10TA2 PO; +LISI10TA25 PO; +SERT-414 PO; -SERT100T8 PO
[2020-09-21] MEDS ORDERED: ACETAMINOPHEN 500 MG TAB (TYLENOL) PO PRN (15:30)
[2020-09-21] MEDS ORDERED: ONDANSETRON 4 MG/2 ML (SDV) Z0FRAN IVP ONE (15:30)
[2020-09-21] MEDS ORDERED: LACTATED RINGERS 1,000 ML IV ONE ×2 (15:30)
[2020-09-21] MEDS ORDERED: fentaNYL INJECTION 100 MCG/2 ML AMP IVP ONE ×2 (15:30→18:15)
--- NOTE | 2020-09-21 15:31 | ED Abdominal Pain ---
General Chief Complaint: Abdominal/GI Problems Stated Complaint: FEVER,N/V,DIARRHEA Source of Information: Patient Exam Limitations: No Limitations History of Present Illness Date Seen by Provider: Sep 21, 2020 Time Seen by Provider: 15:07 Initial Comments The patient presents to the ER by private conveyance from home with chief compla int last couple days nausea vomiting diarrhea and today when he went to the oncology clinic for routine appointment he was discovered to have had 101 degrees fever. No cough or shortness of air. Is having some bilateral lower abdominal pain. He has a diverting loop ileostomy for urine as well as he has had multiple surgeries on his abdomen related to rectal cancer. Is under the care of Dr. Montenegro and Dr. Nisha Booth for primary care. He does not follow with a surgeon routinely. Not having any chest pain. No rash. He has not had any antipyretics today. His had COVID-19 in May and from it in June. He states he tested positive for it and July, 2 months ago but then they told him it was a false positive. He says has been having difficulty with some off again on again diarrhea for the past 2 months ever since his doctor started messing with his opiates saying that he was on too much. Presently he takes 10 mg Dunellen 4-6 times a day. He states the last time they changed his opiates was to increase them about 2 weeks ago. He just assumed the diarrhea nausea was related to the changes in his pain medicine. Allergies and Home Medications Allergies Coded Allergies: morphine (Verified Allergy, Intermediate, 01/01/17) codeine (Verified Adverse Reaction, Unknown, NAUSEA, 01/01/17) Home Medications Amlodipine Besylate 10 Mg Tablet, 10 MG PO HS, (Reported) Cefdinir 300 Mg Capsule, 300 MG PO BID Prescribed by: WARREN LUNA on 07/24/20 1119 Clonazepam 2 Mg Tablet, 4 MG PO HS, (Reported) TAKES 2 (2MG) TABS Oxycodone HCl 30 Mg Tablet, 30 MG PO BID, (Reported) Oxycodone HCl/Acetaminophen 1 Each Tablet, 1 EA PO Q6H, (Reported) Pantoprazole Sodium 40 Mg Tablet.dr, 40 MG PO 1200, (Reported) Pregabalin 225 Mg Capsule, 225 MG PO BID, (Reported) Promethazine HCl 25 Mg Tablet, 25 MG PO BID PRN for NAUSEA/VOMITING-2ND LINE Prescribed by: WARREN LUNA on 07/24/20 1119 Sertraline HCl 100 Mg Tablet, 100 MG PO DAILY PRN for EMOTIONS, (Reported) Patient Home Medication List Home Medication List Reviewed: Yes Review of Systems Review of Systems Constitutional: No chills, No diaphoresis EENTM: No Blurred Vision, No Double Vision, No Eye Pain Respiratory: Denies Cough, Denies Shortness of Air Cardiovascular: Denies Chest Pain, Denies Lightheadedness Gastrointestinal: Abdominal Pain; Denies Constipated; Diarrhea, Nausea, Poor Fluid Intake, Vomiting Genitourinary: Denies Burning, Denies Discharge Musculoskeletal: No back pain, No joint pain Psychiatric/Neurological: Denies Anxiety, Denies Depressed All Other Systems Reviewed Negative Unless Noted: Yes Past Bzkfgup-Uidqdx-Hgbpso Hx Patient Social History Alcohol Use: Denies Use Smoking Status: Never a Smoker 2nd Hand Smoke Exposure: No Recent Hopitalizations: No Immunizations Up To Date Tetanus Booster (TDap): Unknown PED Vaccines UTD: No Seasonal Allergies Seasonal Allergies: No Past Medical History Surgeries: Yes (urostomy, colonresection) Abdominal, Bladder Surgery, Bowel Surgery, Cystectomy, Orthopedic, Rectal, Renal, Vascular Surgery Respiratory: No Currently Using CPAP: No Currently Using BIPAP: No Cardiac: Yes High Cholesterol, Hypertension Neurological: Yes Headaches /Migraines, Neuropathy Reproductive Disorders: Yes (E.D.) Sexually Transmitted Disease: No HIV/AIDS: No Genitourinary: Yes Neurogenic Bladder, UTI-Chronic Gastrointestinal: Yes Colitis, Gastroesophageal Reflux, Chronic Constipation Musculoskeletal: No Arthritis, Chronic Back Pain Endocrine: No HEENT: No Loss of Vision: Denies Hearing Impairment: Denies Cancer: Yes Rectal Did You Recieve Any Treatments: Yes What Type of Treatment Did You: Chemotherapy, Radiation, Surgical Intervention Psychosocial: Yes Anxiety, Depression Integumentary: No Blood Disorders: No Adverse Reaction/Blood Tranf: No Family Medical History Cataract 03 FATHER, Onset:Unknown Chest pain 03 FATHER, Onset:50's - 60 Family history: Allergy 03 MOTHER Family history: Arthritis 03 FATHER 03 MOTHER Family history: Asthma 03 MOTHER Family history: Cardiovascular disease 03 FATHER Family history: Diabetes mellitus 03 FATHER 03 MOTHER Family history: Hypertension 03 FATHER 03 MOTHER Headache 03 FATHER 03 MOTHER Heart disease 03 FATHER History of - respiratory disease 03 MOTHER Hypercholesterolemia 03 FATHER 03 MOTHER Kidney disease 03 MOTHER Psychotic disorder 03 MOTHER Visual impairment 03 FATHER 03 MOTHER No Family History of: Abdominal aortic aneurysm [place]'s disease Alcoholism Aphasia Cancer Cancer of colon Congenital heart disease Congestive heart failure Cystic fibrosis Dementia Dysphagia Family history: Alzheimer's disease Family history: Breast disease Family history: Coronary thrombosis Family history: Gastrointestinal disease Family history: Glaucoma Family history: Osteoporosis Family history: Thyroid disorder Hearing loss Hereditary disease History of - anemia History of - disorder History of drug abuse Human immunodeficiency virus (HIV) seropositivity Infertile Malignant neoplasm of lung Myocardial infarction Parkinson's disease Prostate cancer Seizure disorder Stroke Tuberculosis CAD Under 55 Years Old, COPD, Diabetes, Hypertension Physical Exam Vital Signs Vital Signs - First Documented 09/21/20 15:05 Temp 38.2 Pulse 97 Resp 20 B/P (MAP) 189/135 (153) Pulse Ox 97 O2 Delivery Room Air Capillary Refill : Height/Weight/BMI Height: 5'7.00" Weight: 197lbs. 3.0oz. [id number]; 32.51 BMI Method:Estimated General Appearance: WD/WN, mild distress HEENT: PERRL/EOMI, pharynx normal Neck: full range of motion, normal inspection Respiratory: lungs clear, normal breath sounds, no respiratory distress, no accessory muscle use Cardiovascular: normal peripheral pulses, regular rate, rhythm Peripheral Pulses: 2+ Radial Pulses (R), 2+ Radial Pulses (L) Gastrointestinal: normal bowel sounds, soft, tenderness (Bilateral lower quadrants including around the urostomy but no erythema or discharge or fluctuance palpable around the urostomy.) Extremities: normal range of motion, no pedal edema, normal capillary refill Neurologic/Psychiatric: alert, normal mood/affect, oriented x 3 Skin: normal color, warm/dry Focused Exam Sepsis Stage: Sepsis Possible Source: GI Tract/Intra-Abdominal Lactate Level 09/21/20 15:25: Lactic Acid Level 1.02 Time of Focused Exam: 17:51 Respiratory: Lungs Clear, Normal Breath Sounds, No Accessory Muscle Use, No Respiratory Distress Cardiovascular: Regular Rate, Rhythm, No Edema Capillary Refill: Less Than 3 Seconds Peripheral Pulses: 2+ Radial Pulses (R), 2+ Radial Pulses (L) Skin: normal color, warm/dry Lactic Acid Level Laboratory Tests Test 09/21/20 15:25 Lactic Acid Level 1.02 MMOL/L (0.50-2.00) Within 3hrs of presentation: Admin fluids, Admin ABX, Blood cultures prior to ABX's, Focus exam, Lactate level Progress/Results/Core Measures Results/Orders Lab Results Laboratory Tests Test 09/21/20 15:25 09/21/20 15:30 09/21/20 15:33 Range/Units White Blood Count 8.3 4.3-11.0 10^3/uL Red Blood Count 5.59 H 4.30-5.52 10^6/uL Hemoglobin 15.1 13.3-17.7 g/dL Hematocrit 45 40-54 % Mean Corpuscular Volume 80 80-99 fL Mean Corpuscular Hemoglobin 27 25-34 pg Mean Corpuscular Hemoglobin Concent 34 32-36 g/dL Red Cell Distribution Width 14.2 10.0-14.5 % Platelet Count 255 130-400 10^3/uL Mean Platelet Volume 10.4 9.0-12.2 fL Immature Granulocyte % (Auto) 0 % Neutrophils (%) (Auto) 78 H 42-75 % Lymphocytes (%) (Auto) 17 12-44 % Monocytes (%) (Auto) 5 0-12 % Eosinophils (%) (Auto) 0 0-10 % Basophils (%) (Auto) 0 0-10 % Neutrophils # (Auto) 6.5 1.8-7.8 X 10^3 Lymphocytes # (Auto) 1.4 1.0-4.0 X 10^3 Monocytes # (Auto) 0.4 0.0-1.0 X 10^3 Eosinophils # (Auto) 0.0 0.0-0.3 10^3/uL Basophils # (Auto) 0.0 0.0-0.1 10^3/uL Immature Granulocyte # (Auto) 0.0 0.0-0.1 10^3/uL Prothrombin Time 13.5 12.2-14.7 SEC INR Comment 1.0 0.8-1.4 Activated Partial Thromboplast Time 29 24-35 SEC Sodium Level 140 135-145 MMOL/L Potassium Level 2.8 L 3.6-5.0 MMOL/L Chloride Level 105 98-107 MMOL/L Carbon Dioxide Level 21 21-32 MMOL/L Anion Gap 14 5-14 MMOL/L Blood Urea Nitrogen 15 7-18 MG/DL Creatinine 0.94 0.60-1.30 MG/DL Estimat Glomerular Filtration Rate > 60 BUN/Creatinine Ratio 16 Glucose Level 113 H 70-105 MG/DL Lactic Acid Level 1.02 0.50-2.00 MMOL/L Calcium Level 9.1 8.5-10.1 MG/DL Corrected Calcium 8.5-10.1 MG/DL Total Bilirubin 1.2 H 0.1-1.0 MG/DL Aspartate Amino Transf (AST/SGOT) 22 5-34 U/L Alanine Aminotransferase (ALT/SGPT) 19 0-55 U/L Alkaline Phosphatase 74 40-136 U/L C-Reactive Protein High Sensitivity 0.72 H 0.00-0.50 MG/DL Total Protein 7.7 6.4-8.2 GM/DL Albumin 4.6 H 3.2-4.5 GM/DL Procalcitonin 0.09 <0.10 NG/ML Coronavirus 2019 (EVA) Negative Negative Urine Color MILTON H Urine Clarity TURBID Urine pH 6.0 5-9 Urine Specific Epsom 1.010 L 1.016-1.022 Urine Protein TRACE H NEGATIVE Urine Glucose (UA) NEGATIVE NEGATIVE Urine Ketones NEGATIVE NEGATIVE Urine Nitrite POSITIVE H NEGATIVE Urine Bilirubin NEGATIVE NEGATIVE Urine Urobilinogen 0.2 < = 1.0 MG/DL Urine Leukocyte Esterase 3+ H NEGATIVE Urine RBC (Auto) 1+ H NEGATIVE Urine RBC 5-10 H /HPF Urine WBC 50-100 H /HPF Urine Squamous Epithelial Cells 0-2 /HPF Urine Crystals PRESENT H /LPF Urine Amorphous Sediment MOD FLORES URATES H /LPF Urine Bacteria LARGE H /HPF Urine Casts NONE /LPF Urine Mucus NEGATIVE /LPF Urine Culture Indicated CULTURE PENDING Micro Results Microbiology 09/21/20 Influenza Types A,B Antigen (PEPE) - Final, Complete My Orders Orders - TERESA SPIVEY Cbc With Automated Diff (09/21/20 15:17) Comprehensive Metabolic Panel (09/21/20 15:17) Blood Culture (09/21/20 15:17) Sputum Culture (09/21/20 15:17) Urinalysis (09/21/20 15:17) Urine Culture (09/21/20 15:17) Protime With Inr (09/21/20 15:17) Partial Thromboplastin Time (09/21/20 15:17) Chest 1 View, Ap/Pa Only (09/21/20 15:17) Acetaminophen Tablet (Tylenol Tablet) (09/21/20 15:30) Ed Iv/Invasive Line Start (09/21/20 15:17) Ed Iv/Invasive Line Start (09/21/20 15:17) Vital Signs Adult Sepsis Patie Q15M (09/21/20 15:17) O2 (09/21/20 15:17) Remove Rings In Anticipation O (09/21/20 15:17) Lactic Acid Analyzer (09/21/20 15:17) Influenza A And B Antigens (09/21/20 15:17) Lactated Ringers (Lr 1000 Ml Iv Solution (09/21/20 15:30) Lactated Ringers (Lr 1000 Ml Iv Solution (09/21/20 15:30) Covid 19 Inhouse Test (09/21/20 15:17) Ct Abdomen/Pelvis W (09/21/20 15:17) Fentanyl Injection (Sublimaze Injection (09/21/20 15:30) Ondansetron Injection (Zofran Injectio (09/21/20 15:30) Procalcitonin (Pct) (09/21/20 15:41) Hs C Reactive Protein (09/21/20 15:41) Coronavirus Sars-Cov-2 So 2018 (09/21/20 15:30) Potassium Chloride (Tablet) (K Dur Table (09/21/20 16:45) Iohexol Injection (Omnipaque 350 Mg/Ml 1 (09/21/20 16:45) Received Contrast (Hold Metformin- Contr (09/21/20 16:45) Sodium Chloride Flush (Catheter Flush Sy (09/21/20 16:45) Ns (Ivpb) (Sodium Chloride 0.9% Ivpb Bag (09/21/20 16:45) Medications Given in ED Current Medications Medications Dose Ordered Sig/Kenny Route Start Time Stop Time Status Last Admin Dose Admin Acetaminophen 1,000 mg ONCE PRN PO 09/21/20 15:30 09/21/20 15:51 DC 09/21/20 15:51 1,000 MG Fentanyl Citrate 75 mcg ONCE ONCE IVP 09/21/20 15:30 09/21/20 15:31 DC 09/21/20 15:47 75 MCG Iohexol 100 ml ONCE ONCE IV 09/21/20 16:45 09/21/20 16:46 DC 09/21/20 17:03 100 ML Lactated Ringer's 1,000 ml @ 0 mls/hr Q0M ONCE IV 09/21/20 15:30 09/21/20 15:31 DC 09/21/20 15:45 1,000 MLS/HR Lactated Ringer's 1,000 ml @ 0 mls/hr Q0M ONCE IV 09/21/20 15:30 09/21/20 15:31 DC 09/21/20 16:41 1,000 MLS/HR Ondansetron HCl 4 mg ONCE ONCE IVP 09/21/20 15:30 09/21/20 15:31 DC 09/21/20 15:45 4 MG Potassium Chloride 20 meq ONCE ONCE PO 09/21/20 16:45 09/21/20 16:46 DC 09/21/20 16:41 20 MEQ Sodium Chloride 10 ml NEEDED PRN IV 09/21/20 16:45 09/21/20 17:03 10 ML Sodium Chloride 100 ml ONCE ONCE IV 09/21/20 16:45 09/21/20 16:46 DC 09/21/20 17:03 80 ML Vital Signs/I&O 09/21/20 15:05 Temp 38.2 Pulse 97 Resp 20 B/P (MAP) 189/135 (153) Pulse Ox 97 O2 Delivery Room Air Progress Progress Note #1: Time: 15:31 Progress Note Go ahead and get him swabbed for Covid and influenza with a rapid Covid. We will give him 2 L of fluids which would be about 20 mL/kg. We will hold off on antibiotics as COVID-19 is in the differential although less likely but also because of the diarrhea if it is viral in nature would not want to get worse. There is some suspicion since he is having some left costovertebral angle tenderness and has a loop urostomy that he could be having pyelonephritis. Septic work-up otherwise. I expect that the urinalysis is going to demonstrate gross contamination and he had multiple bugs grow out before they were easily killed by second generation cephalosporins. CT scan will help us look for evidence of inflammation around the kidneys or colon. Progress Note #2: Time: 17:52 Progress Note We will initiate antibiotics since he appears to have an infectious source likely bacterial. Zosyn every 8 will be initiated. He is also having some increased pains we will give him another 50 mcg of fentanyl. Nausea is under control. He did get adequate pain control from the initial fentanyl. Diagnostic Imaging Diagonstic Imaging: CT (With IV contrast) Plain Films/CT/US/NM/MRI: abdomen, pelvis Comments NAME: WAYLON MCNULTY MED REC#: [id number] PT STATUS: REG ER : 1965 PHYSICIAN: TERESA SPIVEY MD ADMIT DATE: 09/21/20/ER Draft Date of Exam:09/21/20 CT ABDOMEN/PELVIS W PROCEDURE: CT abdomen and pelvis with contrast. TECHNIQUE: Multiple contiguous axial images were obtained through the abdomen and pelvis after administration of intravenous contrast. Auto Exposure Controls were utilized during the CT exam to meet ALARA standards for radiation dose reduction. All CT scans use one or more of the following dose optimizing techniques: automated exposure control, MA and/or KvP adjustment based on patient size and exam type or iterative reconstruction. INDICATION: Abdominal pain and diarrhea. The lung bases are clear. There is fatty infiltration of the liver. Gallbladder is present. Pancreas appears normal. Spleen is enlarged measuring 14.5 cm. Portal vein is patent. Common duct is not dilated. Patient appears to have had resection of part of the distal small bowel. Kidneys and adrenals appear normal. There is a diverting urostomy in the left lower quadrant. Urinary bladder is surgically absent. There is large amount of stool throughout the colon. There is thickening of the wall of the rectosigmoid colon. Patient has had partial rectosigmoid resection with low anastomosis. There is no intraperitoneal free air or free fluid. IMPRESSION: Segmental sigmoid colitis. Dictated on workstation # [id number] Dict: 09/21/20 1704 Trans: 09/21/20 1720 [facility] [id number] Interpreted by: WAYLON REAL MD Electronically signed by: Reviewed: Reviewed by Me Diagonstic Imaging: Xray Plain Films/CT/US/NM/MRI: chest Comments [facility]. [place], [place] NAME: WAYLON MCNULTY Jermaine MED REC#: [id number] PT STATUS: REG ER : 1965 PHYSICIAN: TERESA SPIVEY MD ADMIT DATE: 09/21/20/ER Draft Date of Exam:09/21/20 CHEST 1 VIEW, AP/PA ONLY INDICATION: Sepsis and shortness of breath. EXAMINATION: Frontal chest obtained at 04:08 p.m. and compared to 07/20/2020. FINDINGS: Port-A-Cath is unchanged with tip overlying mid SVC. Heart and mediastinal silhouette are normal in appearance. Lungs are clear. There is no pneumothorax or pleural fluid. IMPRESSION: No acute process in the chest. Dictated on workstation # [id number] Dict: 09/21/20 1611 Trans: 09/21/20 1614 [facility] [id number] Interpreted by: PIOTR VICTOR MD Electronically signed by: Reviewed: Reviewed by Me Departure Communication (Admissions) Time/Spoke to Admitting Phy: 18:00 Discussed the case with Dr. Smith and she would like a consult to general surgery and, Zosyn, fluids and she is okay with placing the patient on the floor. Time/Spoke to Consulting Phy: 18:10 Discussed the case with Dr. Henry and he agrees to consult on the case. Impression Primary Impression: Colitis Additional Impression: Sepsis Qualified Codes: A41.9 - Sepsis, unspecified organism Disposition: ADMITTED INPATIENT Condition: Stable Admissions Decision to Admit Reason: Admit from ER (General) Decision to Admit/Date: Sep 21, 2020 Time/Decision to Admit Time: 17:45 Departure-Patient Inst. Referrals: NIKHIL PITTS DO (PCP) Primary Care Physician LINDA BENTLEY (Family) Primary Care Physician TERESA SPIVEY Sep 21, 2020 15:31
[2020-09-21 15:46] LABS: BASOPHILS % (AUTO) 0 % (0-10); EOSINOPHILS % (AUTO) 0 % (0-10); HEMATOCRIT 45 % (40-54); HEMOGLOBIN 15.1 g/dL (13.3-17.7); LYMPHOCYTES # (AUTO) 1.4 X 10^3 (1.0-4.0); LYMPHOCYTES % (AUTO) 17 % (12-44); MEAN CORPUSCULAR HEMOGLOBIN 27 pg (25-34); MEAN CORPUSCULAR HGB CONC 34 g/dL (32-36); MEAN CORPUSCULAR VOLUME 80 fL (80-99); MEAN PLATELET VOLUME 10.4 fL (9.0-12.2); MONOCYTES # (AUTO) 0.4 X 10^3 (0.0-1.0); MONOCYTES % (AUTO) 5 % (0-12); NEUTROPHILS # (AUTO) 6.5 X 10^3 (1.8-7.8); NEUTROPHILS % (AUTO) 78 % (42-75); PLATELET COUNT 255 10^3/uL (130-400); WHITE BLOOD COUNT 8.3 10^3/uL (4.3-11.0)
[2020-09-21 15:46] LABS: BILIRUBIN,URINE NEGATIVE (NEGATIVE); CLARITY,URINE TURBID; COLOR,URINE AMBER; GLUCOSE, URINE (UA) NEGATIVE (NEGATIVE); KETONES,URINE NEGATIVE (NEGATIVE); LEUKOCYTE ESTERASE ,URINE 3+ (NEGATIVE); NITRITE,URINE POSITIVE (NEGATIVE); PROTEIN,URINE TRACE (NEGATIVE)
[2020-09-21 16:03] LABS: ALBUMIN 4.6 GM/DL (3.2-4.5); CHLORIDE 105 MMOL/L (98-107); POTASSIUM 2.8 MMOL/L (3.6-5.0); SODIUM 140 MMOL/L (135-145)
[2020-09-21 16:04] LABS: CALCIUM 9.1 MG/DL (8.5-10.1)
[2020-09-21 16:05] LABS: AMORPHOUS SEDIMENT,UR MOD AMOR URATES /LPF; BACTERIA,URINE LARGE /HPF; SQUAMOUS EPITHELIAL CELL,UR 0-2 /HPF; WBC,URINE 50-100 /HPF
[2020-09-21 16:05] LABS: GLUCOSE 113 MG/DL (70-105); TOTAL PROTEIN 7.7 GM/DL (6.4-8.2)
[2020-09-21 16:06] LABS: CARBON DIOXIDE 21 MMOL/L (21-32)
[2020-09-21 16:07] LABS: BILIRUBIN,TOTAL 1.2 MG/DL (0.1-1.0)
[2020-09-21 16:09] LABS: ALKALINE PHOSPHATASE 74 U/L (40-136); CREATININE SERUM 0.94 MG/DL (0.60-1.30); GFR ESTIMATED > 60
[2020-09-21 16:10] LABS: BUN/CREATININE RATIO 16
[2020-09-21 16:12] LABS: ALANINE AMINOTRANSFERASE 19 U/L (0-55)
--- NOTE | 2020-09-21 16:14 | Diagnostic Imaging Report ---
INDICATION: Sepsis and shortness of breath. EXAMINATION: Frontal chest obtained at 04:08 p.m. and compared to 07/20/2020. FINDINGS: Port-A-Cath is unchanged with tip overlying mid SVC. Heart and mediastinal silhouette are normal in appearance. Lungs are clear. There is no pneumothorax or pleural fluid. IMPRESSION: No acute process in the chest. Dictated by: Dictated on workstation # [id number]
[2020-09-21 16:18] LABS: PROTHROMBIN TIME PATIENT 13.5 SEC (12.2-14.7)
[2020-09-21] MEDS ORDERED: KCL 20 MEQ TAB (K-DUR) PO ONE (16:45)
[2020-09-21] MEDS ORDERED: CATHETER FLUSH 10 ML SYR IV PRN (16:45)
[2020-09-21] MEDS ORDERED: HOLD METFORMIN - RECEIVED CONTRAST 20 ML VIAL IV SCH (16:45)
[2020-09-21] MEDS ORDERED: NS 100 ML (IVPB) BAG IV ONE (16:45)
[2020-09-21] MEDS ORDERED: IOHEXOL 350 MG/ML 100 ML (OMNIPAQUE 350) VIAL IV ONE (16:45)
--- NOTE | 2020-09-21 17:20 | Diagnostic Imaging Report ---
PROCEDURE: CT abdomen and pelvis with contrast. TECHNIQUE: Multiple contiguous axial images were obtained through the abdomen and pelvis after administration of intravenous contrast. Auto Exposure Controls were utilized during the CT exam to meet ALARA standards for radiation dose reduction. All CT scans use one or more of the following dose optimizing techniques: automated exposure control, MA and/or KvP adjustment based on patient size and exam type or iterative reconstruction. INDICATION: Abdominal pain and diarrhea. The lung bases are clear. There is fatty infiltration of the liver. Gallbladder is present. Pancreas appears normal. Spleen is enlarged measuring 14.5 cm. Portal vein is patent. Common duct is not dilated. Patient appears to have had resection of part of the distal small bowel. Kidneys and adrenals appear normal. There is a diverting urostomy in the left lower quadrant. Urinary bladder is surgically absent. There is large amount of stool throughout the colon. There is thickening of the wall of the rectosigmoid colon. Patient has had partial rectosigmoid resection with low anastomosis. There is no intraperitoneal free air or free fluid. IMPRESSION: Segmental sigmoid colitis. Dictated by: Dictated on workstation # [id number]
[2020-09-21] MEDS ORDERED: PIPERACILLIN SODIUM/TAZOBACTAM 4.5 GM in NS (IVPB) 100 ML IV ONE (18:15)
[2020-09-21] MEDS ORDERED: PIPERACILLIN/TAZO 4.5 GM VIAL (ZOSYN) IV ONE (18:38)
[2020-09-21] MEDS ORDERED: NS (IVPB) 250 ML ONE (18:39)
[2020-09-21] MEDS ORDERED: NS W/KCL 40 MEQ/L 1,000 ML IV ONE (19:46)
--- NOTE | 2020-09-21 19:47 | Consultation - Surgery ---
History of Present Illness History of Present Illness Patient Consulted On(ronna/time) 09/21/20 19:42 Time Seen by Provider: 19:03 History of Present Illness Surgery asked to consult regarding Colitis. HPI per ED: The patient presents to the ER by private conveyance from home with chief complaint last couple days nausea vomiting diarrhea and today when he went to the oncology clinic for routine appointment he was discovered to have had 101 degrees fever. No cough or shortness of air. Is having some bilateral lower abdominal pain. He has a diverting loop ileostomy for urine as well as he has had multiple surgeries on his abdomen related to rectal cancer. Is under the care of Dr. Montenegro and Dr. Nisha Booth for primary care. He does not follow with a surgeon routinely. Not having any chest pain. No rash. He has not had any antipyretics today. His had COVID-19 in May and from it in June. He states he tested positive for it and July, 2 months ago but then they told him it was a false positive. He says has been having difficulty with some off again on again diarrhea for the past 2 months ever since his doctor started messing with his opiates saying that he was on too much. Presently he takes 10 mg [place] 4-6 times a day. He states the last time they changed his opiates was to increase them about 2 weeks ago. He just assumed the diarrhea nausea was related to the changes in his pain medicine. When I saw the pt he states he has felt "bad" for at least 3 days; plus, he states that since his bladder resection in 2014 he has felt like this occasionally...."but never this long or this severe." Pt states he had a fever this time and that usually doesn't happen. He states he was due for a colonoscopy in June, but unfortunately his got Covid-19 and then in July. He doesn't remember if anything was found during last colonoscopy, he had colon resection in 2012 for colon cancer. Allergies and Home Medications Allergies Coded Allergies: morphine (Verified Allergy, Intermediate, 01/01/17) codeine (Verified Adverse Reaction, Unknown, NAUSEA, 01/01/17) Home Medications Amlodipine Besylate 10 Mg Tablet, 10 MG PO HS, (Reported) Cefdinir 300 Mg Capsule, 300 MG PO BID Prescribed by: WARREN LUNA on 07/24/20 1119 Clonazepam 2 Mg Tablet, 4 MG PO HS, (Reported) TAKES 2 (2MG) TABS Oxycodone HCl 30 Mg Tablet, 30 MG PO BID, (Reported) Oxycodone HCl/Acetaminophen 1 Each Tablet, 1 EA PO Q6H, (Reported) Pantoprazole Sodium 40 Mg Tablet.dr, 40 MG PO 1200, (Reported) Pregabalin 225 Mg Capsule, 225 MG PO BID, (Reported) Promethazine HCl 25 Mg Tablet, 25 MG PO BID PRN for NAUSEA/VOMITING-2ND LINE Prescribed by: WARREN LUNA on 07/24/20 1119 Sertraline HCl 100 Mg Tablet, 100 MG PO DAILY PRN for EMOTIONS, (Reported) Patient Home Medication List Home Medication List Reviewed: Yes Past Jpqhuuf-Vwdfyh-Ziyyox Hx Patient Social History Smoking Status: Never a Smoker 2nd Hand Smoke Exposure: No Recent Hopitalizations: No Immunizations Up To Date Tetanus Booster (TDap): Unknown PED Vaccines UTD: No Seasonal Allergies Seasonal Allergies: No Surgeries History of Surgeries: Yes (urostomy, colonresection) Surgeries: Abdominal, Bladder Surgery, Bowel Surgery, Cystectomy, Orthopedic, Rectal, Renal, Vascular Surgery Respiratory History of Respiratory Disorde: No Cardiovascular History of Cardiac Disorders: Yes Cardiac Disorders: High Cholesterol, Hypertension Neurological History of Neurological Disord: Yes Neurological Disorders: Headaches /Migraines, Neuropathy Reproductive System Hx Reproductive Disorders: Yes (E.D.) Sexually Transmitted Disease: No HIV/AIDS: No Genitourinary History of Genitourinary Disor: Yes Genitourinary Disorders: Neurogenic Bladder, UTI-Chronic Gastrointestinal History of Gastrointestinal Di: Yes Gastrointestinal Disorders: Colitis, Gastroesophageal Reflux, Chronic Constipation Musculoskeletal History of Musculoskeletal Dis: No Musculoskeletal Disorders: Arthritis, Chronic Back Pain Endocrine History of Endocrine Disorders: No HEENT History of HEENT Disorders: No Loss of Vision: Denies Hearing Impairment: Denies Cancer History of Cancer: Yes Cancer: Rectal Psychosocial History of Psychiatric Problem: Yes Behavioral Health Disorders: Anxiety, Depression Integumentary History of Skin or Integumenta: No Blood Transfusions History of Blood Disorders: No Adverse Reaction to a Blood Tr: No Family Medical History Significant Family History: CAD Under 55 Years Old, COPD, Diabetes, Hypertension Family Medial History: Cataract 03 FATHER, Onset:Unknown Chest pain 03 FATHER, Onset:50's - 60 Family history: Allergy 03 MOTHER Family history: Arthritis 03 FATHER 03 MOTHER Family history: Asthma 03 MOTHER Family history: Cardiovascular disease 03 FATHER Family history: Diabetes mellitus 03 FATHER 03 MOTHER Family history: Hypertension 03 FATHER 03 MOTHER Headache 03 FATHER 03 MOTHER Heart disease 03 FATHER History of - respiratory disease 03 MOTHER Hypercholesterolemia 03 FATHER 03 MOTHER Kidney disease 03 MOTHER Psychotic disorder 03 MOTHER Visual impairment 03 FATHER 03 MOTHER No Family History of: Abdominal aortic aneurysm [place]'s disease Alcoholism Aphasia Cancer Cancer of colon Congenital heart disease Congestive heart failure Cystic fibrosis Dementia Dysphagia Family history: Alzheimer's disease Family history: Breast disease Family history: Coronary thrombosis Family history: Gastrointestinal disease Family history: Glaucoma Family history: Osteoporosis Family history: Thyroid disorder Hearing loss Hereditary disease History of - anemia History of - disorder History of drug abuse Human immunodeficiency virus (HIV) seropositivity Infertile Malignant neoplasm of lung Myocardial infarction Parkinson's disease Prostate cancer Seizure disorder Stroke Tuberculosis Review of Systems-General Constitutional: fever, malaise, weakness EENTM: No blurred vision, No double vision, No mouth pain, No mouth swelling, No epistaxis Respiratory: No cough, No dyspnea on exertion, No hemoptysis, No short of breath Cardiovascular: No chest pain, No edema, No palpitations Gastrointestinal: abdominal pain; No hematemesis, No jaundice; loss of appetite, nausea, vomiting Genitourinary: No dysuria, No frequency, No hematuria; other ( pt has a urostomy, with chronic colonization that occasionally leads to UTI) Musculoskeletal: joint pain, joint swelling, muscle pain, muscle stiffness Skin: No change in color, No change in hair/nails, No lesions Psychiatric/Neurological: Anxiety, Depressed; Denies Pre-Existing Deficit, Denies Seizure Other pt denies any hx of abnormal bleeding or bruising Physical Exam-General Problems Physical Exam Vital Signs Vital Signs - First Documented 09/21/20 15:05 Temp 38.2 Pulse 97 Resp 20 B/P (MAP) 189/135 (153) Pulse Ox 97 O2 Delivery Room Air Capillary Refill : Less Than 3 Seconds General Appearance: WD/WN, no apparent distress Eyes: Bilateral Eye PERRL, Bilateral Eye EOMI HEENT: pharynx normal; No scleral icterus (R), No scleral icterus (L) Neck: full range of motion, supple Respiratory: lungs clear, normal breath sounds, no respiratory distress, no accessory muscle use Cardiovascular: regular rate, rhythm, no murmur Gastrointestinal: normal bowel sounds, soft, no organomegaly, other (urostomy in place, pink and fxning) Back: no CVA tenderness, no vertebral tenderness Extremities: no pedal edema, no calf tenderness, normal capillary refill Neurologic/Psychiatric: 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 tender II-XII nml as tested, alert, normal mood/affect, oriented x 3 Skin: normal color, warm/dry Lymphatic: no adenopathy (neck, axilla or groin) Data Review Labs Laboratory Tests 09/21/20 15:25: White Blood Count 8.3, Red Blood Count 5.59H, Hemoglobin 15.1, Hematocrit 45, Mean Corpuscular Volume 80, Mean Corpuscular Hemoglobin 27, Mean Corpuscular Hemoglobin Concent 34, Red Cell Distribution Width 14.2, Platelet Count 255, Mean Platelet Volume 10.4, Immature Granulocyte % (Auto) 0, Neutrophils (%) (Auto) 78H, Lymphocytes (%) (Auto) 17, Monocytes (%) (Auto) 5, Eosinophils (%) (Auto) 0, Basophils (%) (Auto) 0, Neutrophils # (Auto) 6.5, Lymphocytes # (Auto) 1.4, Monocytes # (Auto) 0.4, Eosinophils # (Auto) 0.0, Basophils # (Auto) 0.0, Immature Granulocyte # (Auto) 0.0, Prothrombin Time 13.5, INR Comment 1.0, Activated Partial Thromboplast Time 29, Sodium Level 140, Potassium Level 2.8L, Chloride Level 105, Carbon Dioxide Level 21, Anion Gap 14, Blood Urea Nitrogen 15, Creatinine 0.94, Estimat Glomerular Filtration Rate > 60, BUN/Creatinine Ratio 16, Glucose Level 113H, Lactic Acid Level 1.02, Calcium Level 9.1, Corrected Calcium , Total Bilirubin 1.2H, Aspartate Amino Transf (AST/SGOT) 22, Alanine Aminotransferase (ALT/SGPT) 19, Alkaline Phosphatase 74, C-Reactive Protein High Sensitivity 0.72H, Total Protein 7.7, Albumin 4.6H, Procalcitonin 0.09 09/21/20 15:30: Coronavirus 2019 (EVA) Negative 09/21/20 15:33: Urine Color AMBERH, Urine Clarity TURBID, Urine pH 6.0, Urine Specific [place] 1.010L, Urine Protein TRACEH, Urine Glucose (UA) NEGATIVE, Urine Ketones NEGATIVE, Urine Nitrite POSITIVEH, Urine Bilirubin NEGATIVE, Urine Urobilinogen 0.2, Urine Leukocyte Esterase 3+H, Urine RBC (Auto) 1+H, Urine RBC 5-10H, Urine WBC 50-100H, Urine Squamous Epithelial Cells 0-2, Urine Crystals PRESENTH, Urine Amorphous Sediment MOD FLORES URATESH, Urine Bacteria LARGEH, Urine Casts NONE, Urine Mucus NEGATIVE, Urine Culture Indicated CULTURE PENDING Microbiology 09/21/20 Influenza Types A,B Antigen (PEPE) - Final, Complete Assessment/Plan Assessment/Plan Assessment/Plan Colitis Urinary Tract Infection Pt has some thickening and possibly inflammation in the sigmoid colon and I think there may be some narrowing just above anastomosis. Will monitor pt, needs colonoscopy as an outpt. SHRUTI EDWARDS DO Sep 21, 2020 19:47
[2020-09-21] MEDS ORDERED: ONDANSETRON 4 MG/2 ML (SDV) Z0FRAN IV PRN (20:00)
[2020-09-21] MEDS ORDERED: ANTACID SUSP 30 ML UDC (MYLANTA) PO PRN (20:00)
[2020-09-21] MEDS ORDERED: ACETAMINOPHEN 650 MG SUPP (TYLENOL) PR PRN (20:00)
[2020-09-21] MEDS ORDERED: ACETAMINOPHEN 325 MG TABLET PO PRN (20:00)
[2020-09-21 20:02] VITALS: BP 183/88
[2020-09-21] MEDS: NS W/KCL 40 MEQ/L 1,000 ML IV SCH (20:10)
[2020-09-21] MEDS ORDERED: cloNIDine 0.1 MG (CATAPRES) TAB PO PRN (21:00)
[2020-09-21] MEDS ORDERED: hydrALAZINE (APRESOLINE) 25 MG TAB PO PRN (21:00)
[2020-09-21] MEDS ORDERED: hydrALAZINE (APESOLINE) 20 MG/ML VIAL IV PRN (21:00)
[2020-09-21] MEDS ORDERED: amLODIPine 10 MG (NORVASC) TAB PO ONE (21:00)
[2020-09-21] MEDS ORDERED: NITROGLYCERIN 2% OINT 1 GM UNIT DOSE PACKET TOP PRN (21:00)
[2020-09-21] MEDS: LACTOBACILLUS ACIDOPHILUS (PROBIOTIC) CAPSULE PO SCH (21:31)
[2020-09-21] MEDS: oxyCODONE/APAP 10/325MG (PERCOCET 10) TABLET PO SCH (21:31)
[2020-09-21] MEDS: ENOXAPARIN 40 MG/0.4 ML (LOVENOX) SYR SC SCH (21:32)
[2020-09-21] MEDS: fentaNYL INJECTION 100 MCG/2 ML AMP IV PRN (21:33)
[2020-09-22] VITALS (7 sets, daily range): BP systolic 148–181; BP diastolic 62–100
[2020-09-22] MEDS: fentaNYL INJECTION 100 MCG/2 ML AMP IV PRN ×7 (00:07→21:06)
[2020-09-22] MEDS ORDERED: PIPERACILLIN/TAZO 4.5 GM VIAL (ZOSYN) IV ONE (02:25)
[2020-09-22] MEDS ORDERED: NS (IVPB) 100 ML ONE (02:26)
[2020-09-22] MEDS: oxyCODONE/APAP 10/325MG (PERCOCET 10) TABLET PO SCH ×4 (02:47→20:18)
[2020-09-22] MEDS: PIPERACILLIN/TAZO 4.5 GM/NS 100 ML IV SCH ×6 (02:48→16:28)
[2020-09-22] MEDS: NS W/KCL 40 MEQ/L 1,000 ML IV SCH ×4 (02:59→22:32)
[2020-09-22 06:02] LABS: BASOPHILS % (AUTO) 0 % (0-10); EOSINOPHILS # (AUTO) 0.1 10^3/uL (0.0-0.3); EOSINOPHILS % (AUTO) 1 % (0-10); HEMATOCRIT 46 % (40-54); HEMOGLOBIN 15.2 g/dL (13.3-17.7); LYMPHOCYTES # (AUTO) 3.5 10^3/uL (1.0-4.0); LYMPHOCYTES % (AUTO) 38 % (12-44); MEAN CORPUSCULAR HEMOGLOBIN 27 pg (25-34); MEAN CORPUSCULAR HGB CONC 33 g/dL (32-36); MEAN CORPUSCULAR VOLUME 81 fL (80-99); MEAN PLATELET VOLUME 11.1 fL (9.0-12.2); MONOCYTES # (AUTO) 0.5 10^3/uL (0.0-1.0); MONOCYTES % (AUTO) 6 % (0-12); NEUTROPHILS # (AUTO) 5.1 10^3/uL (1.8-7.8); NEUTROPHILS % (AUTO) 56 % (42-75); PLATELET COUNT 256 10^3/uL (130-400); WHITE BLOOD COUNT 9.3 10^3/uL (4.3-11.0)
[2020-09-22 06:27] LABS: ALBUMIN 4.5 GM/DL (3.2-4.5); CHLORIDE 104 MMOL/L (98-107); POTASSIUM 3.3 MMOL/L (3.6-5.0); SODIUM 137 MMOL/L (135-145)
[2020-09-22 06:28] LABS: CALCIUM 8.6 MG/DL (8.5-10.1)
[2020-09-22 06:29] LABS: GLUCOSE 86 MG/DL (70-105); TOTAL PROTEIN 7.7 GM/DL (6.4-8.2)
[2020-09-22 06:31] LABS: BILIRUBIN,TOTAL 1.2 MG/DL (0.1-1.0); CARBON DIOXIDE 20 MMOL/L (21-32)
[2020-09-22 06:33] LABS: ALKALINE PHOSPHATASE 71 U/L (40-136); CREATININE SERUM 0.84 MG/DL (0.60-1.30); GFR ESTIMATED > 60
[2020-09-22 06:34] LABS: BUN/CREATININE RATIO 11
[2020-09-22 06:36] LABS: ALANINE AMINOTRANSFERASE 18 U/L (0-55)
[2020-09-22] MEDS: amLODIPine 10 MG (NORVASC) TAB PO SCH (08:31)
[2020-09-22] MEDS: LACTOBACILLUS ACIDOPHILUS (PROBIOTIC) CAPSULE PO SCH ×2 (08:31→20:17)
[2020-09-22] MEDS: PREGABALIN 75 MG (LYRICA) CAP PO SCH ×2 (08:31→20:18)
--- NOTE | 2020-09-22 09:12 | History & Physical-Hospitalist ---
[facility] 09/22/20 0912: History of Present Illness HPI/Chief Complaint Melvin is a 55 year old male that presented to [facility] ER on 09/21 for three days of abdominal pain, diarrhea and nausea. Just prior to his ER arrival he was at his 6 month follow up with oncology. He had a temperature of 101 and was then sent to the ER. He describe the pain as crampy and located more in LLQ with radiation to the umbilical area. He states he always has some fullness in his pelvic area but has never had pain like this before. Nothing at home made it better or worse. No radiation of pain to shoulders or back area. He has a PMH of colon cancer back in 2012. 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 He no longer needs to follow with urology. He states his K+ is always low. CT imaging performed showed rectosigmoid thickening. General Surgery has seen and evaluated patient. He is currently receiving zosyn for colitis. He had a bowel movement today which he described as watery/soft with no blood. Source: patient Exam Limitations: no limitations Date Seen 09/22/20 Attending Physician Cammie Keys Julie A MD Referring Physician Date of Admission Sep 21, 2020 at 18:00 Home Medications & Allergies Home Medications Reviewed patient Home Medication Reconciliation performed by pharmacy medication reconciliations fuel cell technician and/or nursing. Patients Allergies have been reviewed. Allergies Allergies Coded Allergies morphine (Verified Allergy, Intermediate, 01/01/17) codeine (Verified Adverse Reaction, Unknown, NAUSEA, 01/01/17) Past Hnrouzh-Odhypq-Rybycz Hx Patient Social History Alcohol Use: Denies Use Recreational Drug Use: No Smoking Status: Never a Smoker 2nd Hand Smoke Exposure: No Recent Foreign Travel: No Contact w/other who traveled: No Recent Hopitalizations: No Recent Infectious Disease Expo: No Immunizations Up To Date Tetanus Booster (TDap): Unknown Pediatric: No Seasonal Allergies Seasonal Allergies: No Past Medical History Surgeries: Abdominal, Bladder Surgery, Bowel Surgery, Cystectomy, Orthopedic, Rectal, Renal, Vascular Surgery Respiratory: COPD, Pneumonia Currently Using CPAP: No Currently Using BIPAP: No Cardiac: High Cholesterol, Hypertension Neurological: Headaches /Migraines, Neuropathy Reproductive: Yes (E.D.) Sexually Transmitted Disease: No HIV/AIDS: No Genitourinary: Neurogenic Bladder, UTI-Chronic Gastrointestinal: Colitis, Gastroesophageal Reflux, Chronic Constipation Musculoskeletal: Arthritis, Chronic Back Pain Loss of Vision: Denies Hearing Impairment: Denies Cancer: Rectal Did You Recieve Any Treatments: Yes What Type of Treatment Did You: Chemotherapy, Radiation, Surgical Intervention Psychosocial: Anxiety, Depression History of Blood Disorders: No Adverse Reaction to Blood Adams: No Family History Cataract 03 FATHER, Onset:Unknown Chest pain 03 FATHER, Onset:50's - 60 Family history: Allergy 03 MOTHER Family history: Arthritis 03 FATHER 03 MOTHER Family history: Asthma 03 MOTHER Family history: Cardiovascular disease 03 FATHER Family history: Diabetes mellitus 03 FATHER 03 MOTHER Family history: Hypertension 03 FATHER 03 MOTHER Headache 03 FATHER 03 MOTHER Heart disease 03 FATHER History of - respiratory disease 03 MOTHER Hypercholesterolemia 03 FATHER 03 MOTHER Kidney disease 03 MOTHER Psychotic disorder 03 MOTHER Visual impairment 03 FATHER 03 MOTHER No Family History of: Abdominal aortic aneurysm [place]'s disease Alcoholism Aphasia Cancer Cancer of colon Congenital heart disease Congestive heart failure Cystic fibrosis Dementia Dysphagia Family history: Alzheimer's disease Family history: Breast disease Family history: Coronary thrombosis Family history: Gastrointestinal disease Family history: Glaucoma Family history: Osteoporosis Family history: Thyroid disorder Hearing loss Hereditary disease History of - anemia History of - disorder History of drug abuse Human immunodeficiency virus (HIV) seropositivity Infertile Malignant neoplasm of lung Myocardial infarction Parkinson's disease Prostate cancer Seizure disorder Stroke Tuberculosis CAD Under 55 Years Old, COPD, Diabetes, Hypertension Review of Systems Constitutional: chills; No dizziness EENTM: no symptoms reported Respiratory: no symptoms reported Cardiovascular: no symptoms reported Gastrointestinal: LLQ, abdominal pain (LLQ), diarrhea, nausea, vomiting (dry heaving ), other (radiiation to periumbilical area) Genitourinary: other (ileal diversion ) Musculoskeletal: no symptoms reported Skin: no symptoms reported Psychiatric/Neurological: No Symptoms Reported Physical Exam Physical Exam Vital Signs Vital Signs - First Documented 09/21/20 15:05 Temp 38.2 Pulse 97 Resp 20 B/P (MAP) 189/135 (153) Pulse Ox 97 O2 Delivery Room Air Capillary Refill : Less Than 3 Seconds Height, Weight, BMI Height: 5'7.00" Weight: 197lbs. 3.0oz. [id number]; 31.34 BMI Method:Estimated General Appearance: No Apparent Distress, WD/WN HEENT: PERRL/EOMI Neck: Non Tender, Supple Respiratory: Chest Non Tender, Lungs Clear, No Accessory Muscle Use, No Respiratory Distress Gastrointestinal: Distended (minimal ), Tenderness (LLQ and periumbilical area) Extremity: No Calf Tenderness, No Pedal Edema Neurologic/Psychiatric: Alert, Oriented x3 Skin: Normal Color, Warm/Dry Lymphatic: No Adenopathy Results Results/Procedures Labs Laboratory Tests 09/21/20 15:25 09/22/20 05:42 Patient resulted labs reviewed. Assessment/Plan Admission Diagnosis Assessment: 1. Colitis 2. Hypokalemia 3. Abnormal Urinary analysis 4. HTN 5. Hx colon cancer Plan 09/21 - continue zosyn - appreciate surg rec - clear liquad diet - hypokalemia likely 2/2 to ileal conduit. Patient denies being on pottasium c itrate or supplement for this. Does not follow with urology. But if he has to he states "I will go back to [employer]". - Abnormal UA, culture pending. - Continue HTN meds - Patient follows with onlcology for hx of colon cancer - monitor labs CAMMIE KEYS DO 09/24/20 0438: History of Present Illness HPI/Chief Complaint CC: Abdominal pain with colitis HPI: This is a 55yoWM with history of colon cancer s/p ileoconduitt with cystectomy due to inability to perform in-and-out catheters who presented yesterday with colitis and abdominal pain, Dr. Henry saw him in consultation and placed him on clear liquid diet and it appears that he was placed on Zosyn and urine cultures pending but preliminary is Klebsiella. At this current time Pt reports loose stools and will discontinue telemetry. His Covid test was negative. Time Seen by a Provider: 09:30 Past Hzcuabo-Nlsqca-Isgnvy Hx Past Med/Social Hx: Reviewed Nursing Past Med/Soc Hx, Reviewed and Corrections made Patient Social History Marrital Status: single Employed/Student: unemployed Alcohol Use: Denies Use Smoking Status: Current Everyday Smoker Past Medical History Surgeries: Abdominal Respiratory: COPD Cancer: Colon Did You Recieve Any Treatments: Yes What Type of Treatment Did You: Surgical Intervention Family History Cataract 03 FATHER, Onset:Unknown Chest pain 03 FATHER, Onset:50's - 60 Family history: Allergy 03 MOTHER Family history: Arthritis 03 FATHER 03 MOTHER Family history: Asthma 03 MOTHER Family history: Cardiovascular disease 03 FATHER Family history: Diabetes mellitus 03 FATHER 03 MOTHER Family history: Hypertension 03 FATHER 03 MOTHER Headache 03 FATHER 03 MOTHER Heart disease 03 FATHER History of - respiratory disease 03 MOTHER Hypercholesterolemia 03 FATHER 03 MOTHER Kidney disease 03 MOTHER Psychotic disorder 03 MOTHER Visual impairment 03 FATHER 03 MOTHER No Family History of: Abdominal aortic aneurysm [place]'s disease Alcoholism Aphasia Cancer Cancer of colon Congenital heart disease Congestive heart failure Cystic fibrosis Dementia Dysphagia Family history: Alzheimer's disease Family history: Breast disease Family history: Coronary thrombosis Family history: Gastrointestinal disease Family history: Glaucoma Family history: Osteoporosis Family history: Thyroid disorder Hearing loss Hereditary disease History of - anemia History of - disorder History of drug abuse Human immunodeficiency virus (HIV) seropositivity Infertile Malignant neoplasm of lung Myocardial infarction Parkinson's disease Prostate cancer Seizure disorder Stroke Tuberculosis Review of Systems Constitutional: see HPI Physical Exam Physical Exam General Appearance: No Apparent Distress, Anxious, Chronically ill Respiratory: Lungs Clear Cardiovascular: Regular Rate, Rhythm Neurologic/Psychiatric: Alert, Oriented x3, No Motor/Sensory Deficits, Normal Mood/Affect Assessment/Plan Admission Diagnosis Assessment: Colitis Acute on chronic abdominal pain Hypokalemia Plan: Replace potassium Supportive care IV abx Pain control Admission Status: Inpatient Order (span 2 midnights) Reason for Inpatient Admission: colitis with colon cancer Diagnosis/Problems Diagnosis/Problems (1) Gastroenteritis Status: Acute (2) Nausea, vomiting, and diarrhea Status: Acute (3) History of rectal cancer Status: Chronic Supervisory-Addendum Brief Verification & Attestation Participated in pt care: history, MDM, physical Personally performed: exam, history, MDM, supervision of care Care discussed with: Medical Student Procedures: n/a Results interpretation: Verified all documentation Verification and Attestation of Medical Student E/M Service A medical student performed and documented this service in my presence. I reviewed and verified all information documented by the medical student and made modifications to such information, when appropriate. I personally performed the physical exam and medical decision making. Cammie Keys, Sep 24, 2020,04:38 [facility] Sep 22, 2020 09:12 CAMMIE KEYS DO Sep 24, 2020 04:38
[2020-09-22] MEDS ORDERED: IBUP-2473 PO (10:51)
[2020-09-22] MEDS: PANTOPRAZOLE 40 MG (PROTONIX) TAB PO SCH (11:36)
[2020-09-22] MEDS: ENOXAPARIN 40 MG/0.4 ML (LOVENOX) SYR SC SCH (20:17)
[2020-09-22] MEDS ORDERED: clonazePAM 1 MG (KlonoPIN) TAB PO SCH (21:00)
[2020-09-23] VITALS: BP 135/86
[2020-09-23] MEDS: PIPERACILLIN/TAZO 4.5 GM/NS 100 ML IV SCH ×8 (00:02→23:59)
[2020-09-23] MEDS: NS W/KCL 40 MEQ/L 1,000 ML IV SCH ×3 (03:32→19:51)
[2020-09-23] MEDS: oxyCODONE/APAP 10/325MG (PERCOCET 10) TABLET PO SCH ×4 (03:32→19:52)
[2020-09-23 03:34] VITALS: BP 137/83
[2020-09-23] MEDS: fentaNYL INJECTION 100 MCG/2 ML AMP IV PRN ×7 (03:52→23:59)
[2020-09-23 06:14] LABS: BASOPHILS % (AUTO) 1 % (0-10); EOSINOPHILS # (AUTO) 0.1 10^3/uL (0.0-0.3); EOSINOPHILS % (AUTO) 1 % (0-10); HEMATOCRIT 42 % (40-54); HEMOGLOBIN 13.4 g/dL (13.3-17.7); LYMPHOCYTES # (AUTO) 2.3 10^3/uL (1.0-4.0); LYMPHOCYTES % (AUTO) 35 % (12-44); MEAN CORPUSCULAR HEMOGLOBIN 27 pg (25-34); MEAN CORPUSCULAR HGB CONC 32 g/dL (32-36); MEAN CORPUSCULAR VOLUME 84 fL (80-99); MEAN PLATELET VOLUME 11.3 fL (9.0-12.2); MONOCYTES # (AUTO) 0.4 10^3/uL (0.0-1.0); MONOCYTES % (AUTO) 6 % (0-12); NEUTROPHILS # (AUTO) 3.8 10^3/uL (1.8-7.8); NEUTROPHILS % (AUTO) 58 % (42-75); PLATELET COUNT 172 10^3/uL (130-400); WHITE BLOOD COUNT 6.6 10^3/uL (4.3-11.0)
[2020-09-23 06:35] LABS: ALBUMIN 3.7 GM/DL (3.2-4.5); CHLORIDE 110 MMOL/L (98-107); POTASSIUM 3.5 MMOL/L (3.6-5.0); SODIUM 139 MMOL/L (135-145)
[2020-09-23 06:36] LABS: CALCIUM 7.9 MG/DL (8.5-10.1)
[2020-09-23 06:37] LABS: GLUCOSE 136 MG/DL (70-105); TOTAL PROTEIN 6.1 GM/DL (6.4-8.2)
[2020-09-23 06:38] LABS: CARBON DIOXIDE 19 MMOL/L (21-32)
[2020-09-23 06:39] LABS: BILIRUBIN,TOTAL 0.5 MG/DL (0.1-1.0)
[2020-09-23 06:41] LABS: ALKALINE PHOSPHATASE 62 U/L (40-136); CREATININE SERUM 0.97 MG/DL (0.60-1.30); GFR ESTIMATED > 60
[2020-09-23 06:42] LABS: BUN/CREATININE RATIO 6
[2020-09-23 06:44] LABS: ALANINE AMINOTRANSFERASE 17 U/L (0-55)
[2020-09-23] MEDS: LACTOBACILLUS ACIDOPHILUS (PROBIOTIC) CAPSULE PO SCH ×2 (08:10→19:51)
[2020-09-23] MEDS: PREGABALIN 75 MG (LYRICA) CAP PO SCH ×2 (08:11→19:52)
[2020-09-23] MEDS: amLODIPine 10 MG (NORVASC) TAB PO SCH (08:11)
[2020-09-23 08:16] VITALS: BP 157/99
--- NOTE | 2020-09-23 10:09 | Progress Note - Surgery ---
KAILEE ADAM MED STUDENT 09/23/20 1009: Subjective Date Seen by a Provider: Sep 23, 2020 Time Seen by a Provider: 09:30 Subjective/Events-last exam Patient is awake and sitting on the side of the bed this morning. States that his pain is climbing a bit but is better than yesterday. He recently received pain medication which he states helped. He has eaten scrambled eggs this morning with no difficulties, no nausea or vomiting. His last bowel movement was 10 minutes prior, states it was diarrhea but no blood, does state it was a bit dark. He is ambulating around his room. He has pain at the site of his urine bag, states the pain in the rest of the abdomen is not nearly as bad. He denies chest pain, SOB, or pains in legs this morning. There is about 300ml of urine in the container. His only question is about advancing to more solid foods. Review of Systems HEENT: No Head Aches, No Visual Changes Pulmonary: No Dyspnea Cardiovascular: No: Chest Pain, Palpitations, Edema Gastrointestinal: Abdominal Pain, Diarrhea; No: Nausea, Vomiting Genitourinary: No Dysuria Focused Exam Lactate Level 09/21/20 15:25: Lactic Acid Level 1.02 Time of Focused Exam: 17:51 Objective Exam Vital Signs Date Time Temp Pulse Resp B/P (MAP) Pulse Ox O2 Delivery O2 Flow Rate FiO2 09/23/20 08:16 36.2 62 18 157/99 (118) 98 Room Air 09/23/20 08:00 98 Room Air 09/23/20 03:34 36.2 63 20 137/83 (101) 98 Room Air 09/23/20 00:00 36.6 59 20 135/86 (102) 96 Room Air 09/22/20 20:20 Room Air 09/22/20 19:31 36.5 73 18 154/93 (113) 100 Room Air 09/22/20 15:48 36.6 80 18 151/95 (113) 98 Room Air 09/22/20 12:24 67 09/22/20 12:10 36.1 70 18 148/77 (100) 98 Room Air 09/22/20 10:37 160/62 (94) I & O 09/23/20 06:59 Intake Total 2680 ml Output Total 1600 ml Balance 1080 ml Capillary Refill : Less Than 3 Seconds General Appearance: No Apparent Distress Respiratory: Chest Non Tender, Lungs Clear, Normal Breath Sounds, No Accessory Muscle Use, No Respiratory Distress Cardiovascular: Regular Rate, Rhythm, No Edema, No Murmur Peripheral Pulses: 2+ Radial Pulses (R), 2+ Radial Pulses (L) Gastrointestinal: normal bowel sounds, soft, no organomegaly, other (urostomy in place, pink and fxning) Extremity: No Calf Tenderness, No Pedal Edema Neurologic/Psychiatric: Alert, Oriented x3 Skin: Normal Color, Warm/Dry Results Lab Laboratory Tests 09/23/20 06:08: White Blood Count 6.6, Red Blood Count 5.00, Hemoglobin 13.4, Hematocrit 42, Mean Corpuscular Volume 84, Mean Corpuscular Hemoglobin 27, Mean Corpuscular Hemoglobin Concent 32, Red Cell Distribution Width 14.2, Platelet Count 172, Mean Platelet Volume 11.3, Immature Granulocyte % (Auto) 0, Neutrophils (%) (Auto) 58, Lymphocytes (%) (Auto) 35, Monocytes (%) (Auto) 6, Eosinophils (%) (Auto) 1, Basophils (%) (Auto) 1, Neutrophils # (Auto) 3.8, Lymphocytes # (Auto) 2.3, Monocytes # (Auto) 0.4, Eosinophils # (Auto) 0.1, Basophils # (Auto) 0.0, Immature Granulocyte # (Auto) 0.0, Sodium Level 139, Potassium Level 3.5L, Chloride Level 110H, Carbon Dioxide Level 19L, Anion Gap 10, Blood Urea Nitrogen 6L, Creatinine 0.97, Estimat Glomerular Filtration Rate > 60, BUN/Creatinine Ratio 6, Glucose Level 136H, Calcium Level 7.9L, Corrected Calcium 8.1L, Total Bilirubin 0.5, Aspartate Amino Transf (AST/SGOT) 21, Alanine Aminotransferase (ALT/SGPT) 17, Alkaline Phosphatase 62, Total Protein 6.1L, Albumin 3.7 Microbiology 09/21/20 Blood Culture - Preliminary, Resulted No growth 09/21/20 Urine Culture - Preliminary, Resulted Escherichia coli 09/21/20 Influenza Types A,B Antigen (PEPE) - Final, Complete Assessment/Plan Assessment/Plan Assessment/Plan 1. Colitis -Continue soft foods -Continue pain medication -Schedule colonoscopy for outpatient -Discharge when patient can tolerate pain and is off IV abx 2. Urinary Tract Infection -Continue ABX -WBC 6.6 this morning, pt afebrile -Daily CBC to monitor WBC GILDARDO HENRY DO 09/23/20 1250: Subjective Time Seen by a Provider: 12:26 Subjective/Events-last exam Pt seen and examined, states he still has abdominal pain but thinks it is better than yesterday. He was able to eat today without difficulty. Review of Systems HEENT: No Head Aches, No Visual Changes Pulmonary: No Dyspnea Cardiovascular: No: Chest Pain, Palpitations, Edema Gastrointestinal: Abdominal Pain, Diarrhea; No: Nausea, Vomiting Objective Exam General Appearance: No Apparent Distress Respiratory: Chest Non Tender, Lungs Clear, Normal Breath Sounds, No Accessory Muscle Use, No Respiratory Distress Cardiovascular: Regular Rate, Rhythm, No Murmur Gastrointestinal: normal bowel sounds, soft, no organomegaly, other (urostomy in place, pink and fxning) Assessment/Plan Assessment/Plan Assessment/Plan 1. Colitis -Continue diet as tolerated, pain meds as needed, pt will need colonoscopy as an outpatient - told to call Dr. Aguilar 2. Urinary Tract Infection -Continue ABX, -WBC 6.6 this morning, pt afebrile; this is most likely normal colonization for his urostomy Supervisory-Addendum Brief Verification & Attestation Participated in pt care: history, MDM, physical Personally performed: exam, history, MDM Care discussed with: Medical Student Procedures: n/a Verification and Attestation of Medical Student E/M Service A medical student performed and documented this service. I then reviewed and verified all information documented by the medical student and made modifications to such information, when appropriate. I personally performed a physical exam, medical decision making and then discussed any differences between the notes and made revisions as necessary to create one note. Gildardo Henry , 09/23/20 , 12:50 KAILEE ADAM MED STUDENT Sep 23, 2020 10:09 GILDARDO HENRY DO Sep 23, 2020 12:50
[2020-09-23] MEDS: KCL 20 MEQ TAB (K-DUR) PO SCH ×2 (11:28→19:51)
--- NOTE | 2020-09-23 12:11 | Progress Note - Hospitalist ---
FLAVIO GONZALEZ [facility] 09/23/20 1211: Subjective HPI/CC On Admission Melvin is a 55 year old male that presented to [facility] ER on 09/21 for three days of abdominal pain, diarrhea and nausea. Just prior to his ER arrival he was at his 6 month follow up with oncology. He had a temperature of 101 and was then sent to the ER. He describe the pain as crampy and located more in LLQ with radiation to the umbilical area. He states he always has some fullness in his pelvic area but has never had pain like this before. Nothing at home made it better or worse. No radiation of pain to shoulders or back area. He has a PMH of colon cancer back in 2012. 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 He no longer needs to follow with urology. He states his K+ is always low. CT imaging performed showed rectosigmoid thickening. General Surgery has seen and evaluated patient. He is currently receiving zosyn for colitis. He had a bowel movement today which he described as watery/soft with no blood. Subjective/Events-last exam Alert and pleasant sitting in bed. He has had 4 BM, which he describes as watery. No blood in stool. Pain is improved. Conduit is draining clear yellow urine. He is tolerating Dys 2 diet. He is up walking around. Per Rn: patient had an episode last night where he was delirious and tried walking to the elevator with his sister (who was not there). He was easily redirected. Overall Improving. Denies: F/C, N/V, Chest pain, SOB, dizzness and blood in stool. Review of Systems General: No Chills Pulmonary: No Dyspnea, No Cough, No Pleuritic Chest Pain Cardiovascular: No: Chest Pain, Edema Gastrointestinal: Abdominal Pain (minimal, improved compared to previous day); No: Nausea, Vomiting Focused Exam Lactate Level 09/21/20 15:25: Lactic Acid Level 1.02 Time of Focused Exam: 17:51 Objective Exam Vital Signs Vital Signs Date Time Temp Pulse Resp B/P (MAP) Pulse Ox O2 Delivery O2 Flow Rate FiO2 09/23/20 16:00 36.6 76 18 164/99 (120) 95 Room Air Capillary Refill : Less Than 3 Seconds General Appearance: No Apparent Distress, Thin Neck: Full Range of Motion, Non Tender Respiratory: Chest Non Tender, No Accessory Muscle Use, No Respiratory Distress Cardiovascular: Regular Rate, Rhythm, No Edema, Normal Peripheral Pulses Gastrointestinal: Soft, Tenderness (minimal at LLQ. Improved when compared to previous day. ) Back: No CVA Tenderness, No Vertebral Tenderness Extremity: Non Tender, No Calf Tenderness, No Pedal Edema Neurologic/Psychiatric: Alert, Oriented x3 Skin: Normal Color, Warm/Dry Lymphatic: No Adenopathy Results/Procedures Lab Laboratory Tests 09/23/20 06:08 Patient resulted labs reviewed. Assessment/Plan Assessment and Plan Assess & Plan/Chief Complaint Assessment: 1. Colitis 2. Hypokalemia 3. Abnormal Urinary analysis 4. HTN 5. 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 Patient denies being on pottasium citrate or supplement for this. Does not follow with urology. But if he has to he states "I will go back to ". - Abnormal UA, culture pending. - Continue HTN meds - Patient follows with onlcology for hx of colon cancer - monitor labs Plan 09/23 - continue abx - appreciate surg recs - Diet was upgraded to Dysphagia 2 - D/C klonpin - Hypokalemia: improved, ordered PO K+ - UA + for Klebsiella and Ecoli, sensitivity pending. Consider treatment if patient is not improving. 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 - monitor labs, consider ordering a Magnesium level CAMMIE KEYS DO 09/24/20 0519: Subjective HPI/CC On Admission Date Seen by Provider: Sep 23, 2020 Time Seen by Provider: 09:00 Subjective/Events-last exam Pt had Klonopin last night and was sleep walking and confused Will Dc that We talked about his pain management and Dr. Levin and technique she has used to decrease the pain medication UA shows Klebsiella and E.coli maintain on Zosyn Potassium 3.5 on IV supplementation so will initiate 20 mEq twice daily He sees urology up at Abdominal pain is improved Dr. Henry has advanced his diet Review of Systems General: Fatigue Gastrointestinal: Abdominal Pain (minimal, improved compared to previous day) Objective Exam General Appearance: No Apparent Distress, WD/WN, Chronically ill Respiratory: Lungs Clear Cardiovascular: Regular Rate, Rhythm Neurologic/Psychiatric: Alert, Oriented x3, No Motor/Sensory Deficits, Normal Mood/Affect Assessment/Plan Assessment and Plan Assess & Plan/Chief Complaint Supportive care MIGUEL Garner Supervisory-Addendum Brief Verification & Attestation Participated in pt care: history, MDM, physical Personally performed: exam, history, MDM, supervision of care Care discussed with: Medical Student Procedures: n/a Results interpretation: Verified all documentation Verification and Attestation of Medical Student E/M Service A medical student performed and documented this service in my presence. I reviewed and verified all information documented by the medical student and made modifications to such information, when appropriate. I personally performed the physical exam and medical decision making. Cammie Keys, Sep 24, 2020,05:19 FLAVIO GONZALEZ [facility] Sep 23, 2020 12:11 CAMMIE KEYS DO Sep 24, 2020 05:19
[2020-09-23 12:24] VITALS: BP 157/95
[2020-09-23] MEDS: PANTOPRAZOLE 40 MG (PROTONIX) TAB PO SCH (12:42)
[2020-09-23 16:00] VITALS: BP 164/99
[2020-09-23] MEDS: ENOXAPARIN 40 MG/0.4 ML (LOVENOX) SYR SC SCH (19:52)
[2020-09-23 23:41] VITALS: BP 156/78
[2020-09-24] MEDS: oxyCODONE/APAP 10/325MG (PERCOCET 10) TABLET PO SCH ×4 (02:13→20:25)
[2020-09-24] MEDS: fentaNYL INJECTION 100 MCG/2 ML AMP IV PRN ×6 (02:13→22:26)
[2020-09-24 06:43] LABS: BASOPHILS % (AUTO) 0 % (0-10); EOSINOPHILS # (AUTO) 0.2 10^3/uL (0.0-0.3); EOSINOPHILS % (AUTO) 2 % (0-10); HEMATOCRIT 45 % (40-54); HEMOGLOBIN 14.5 g/dL (13.3-17.7); LYMPHOCYTES # (AUTO) 2.7 10^3/uL (1.0-4.0); LYMPHOCYTES % (AUTO) 28 % (12-44); MEAN CORPUSCULAR HEMOGLOBIN 27 pg (25-34); MEAN CORPUSCULAR HGB CONC 33 g/dL (32-36); MEAN CORPUSCULAR VOLUME 83 fL (80-99); MONOCYTES # (AUTO) 0.7 10^3/uL (0.0-1.0); MONOCYTES % (AUTO) 7 % (0-12); NEUTROPHILS # (AUTO) 6.1 10^3/uL (1.8-7.8); NEUTROPHILS % (AUTO) 63 % (42-75); PLATELET COUNT 242 10^3/uL (130-400); WHITE BLOOD COUNT 9.7 10^3/uL (4.3-11.0)
[2020-09-24 06:59] LABS: ALANINE AMINOTRANSFERASE 20 U/L (0-55); ALBUMIN 4.4 GM/DL (3.2-4.5); ALKALINE PHOSPHATASE 65 U/L (40-136); BILIRUBIN,TOTAL 0.8 MG/DL (0.1-1.0); BUN/CREATININE RATIO 9; CALCIUM 8.6 MG/DL (8.5-10.1); CARBON DIOXIDE 18 MMOL/L (21-32); CHLORIDE 107 MMOL/L (98-107); CREATININE SERUM 0.98 MG/DL (0.60-1.30); GFR ESTIMATED > 60; GLUCOSE 85 MG/DL (70-105); POTASSIUM 3.6 MMOL/L (3.6-5.0); SODIUM 139 MMOL/L (135-145); TOTAL PROTEIN 7.4 GM/DL (6.4-8.2)
[2020-09-24] MEDS: NS W/KCL 40 MEQ/L 1,000 ML IV SCH ×4 (07:16→17:37)
[2020-09-24 08:01] VITALS: BP 164/88
--- NOTE | 2020-09-24 08:11 | Progress Note - Surgery ---
KAILEE ADAM MED STUDENT 09/24/20 0811: Subjective Date Seen by a Provider: Sep 24, 2020 Time Seen by a Provider: 07:35 Subjective/Events-last exam Patient is sitting up in [place] this morning, eating breakfast. States he is in more pain this morning and has the sensations that something is inside his rectum and trying to fall out. He had some nausea last night but received medication and states it got better, was not associated with food intake. States he has been having lots of diarrhea, 8 already this morning. Denies any blood or dark stools. States he has now gone through 60 adult diapers since admission. He does have some blood with wiping sometimes now and states his anal area is sore. He is ambulating around his room. States that he would really prefer to stay one more day. Review of Systems General: No Chills HEENT: No Head Aches, No Visual Changes Pulmonary: No Dyspnea Cardiovascular: No: Chest Pain Gastrointestinal: Nausea, Abdominal Pain, Diarrhea; No: Vomiting, Melena, Hematochezia Musculoskeletal: No: leg pain Focused Exam Lactate Level 09/21/20 15:25: Lactic Acid Level 1.02 Time of Focused Exam: 17:51 Objective Exam Vital Signs Date Time Temp Pulse Resp B/P (MAP) Pulse Ox O2 Delivery O2 Flow Rate FiO2 09/24/20 08:01 36.6 69 20 164/88 (113) 97 Room Air 09/23/20 23:41 36.6 79 18 156/78 (104) 97 Room Air 09/23/20 20:28 Room Air 09/23/20 16:00 36.6 76 18 164/99 (120) 95 Room Air 09/23/20 15:53 36.2 09/23/20 12:24 36.2 70 18 157/95 (115) 99 Room Air 09/23/20 08:16 36.2 62 18 157/99 (118) 98 Room Air I & O 09/24/20 07:00 Intake Total 3792 ml Output Total 3125 ml Balance 667 ml Capillary Refill : Less Than 3 Seconds General Appearance: No Apparent Distress, WD/WN Respiratory: Chest Non Tender, Lungs Clear, Normal Breath Sounds, No Accessory Muscle Use, No Respiratory Distress Cardiovascular: Regular Rate, Rhythm, No Edema, No Murmur, Normal Peripheral Pulses Peripheral Pulses: 2+ Radial Pulses (R), 2+ Radial Pulses (L) Gastrointestinal: abnormal bowel sounds (Hyperechoic), distended (Slightly softer than yesterday), other (Urostomy bag in place) Extremity: Non Tender, No Calf Tenderness, No Pedal Edema Neurologic/Psychiatric: Alert, Oriented x3 Skin: Normal Color, Warm/Dry Results Lab Laboratory Tests 09/24/20 06:32: White Blood Count 9.7, Red Blood Count 5.39, Hemoglobin 14.5, Hematocrit 45, Mean Corpuscular Volume 83, Mean Corpuscular Hemoglobin 27, Mean Corpuscular Hemoglobin Concent 33, Red Cell Distribution Width 14.1, Platelet Count 242, Mean Platelet Volume 11.0, Immature Granulocyte % (Auto) 0, Neutrophils (%) (Auto) 63, Lymphocytes (%) (Auto) 28, Monocytes (%) (Auto) 7, Eosinophils (%) (Auto) 2, Basophils (%) (Auto) 0, Neutrophils # (Auto) 6.1, Lymphocytes # (Auto) 2.7, Monocytes # (Auto) 0.7, Eosinophils # (Auto) 0.2, Basophils # (Auto) 0.0, Immature Granulocyte # (Auto) 0.0, Sodium Level 139, Potassium Level 3.6, Chloride Level 107, Carbon Dioxide Level 18L, Anion Gap 14, Blood Urea Nitrogen 9, Creatinine 0.98, Estimat Glomerular Filtration Rate > 60, BUN/Creatinine Ratio 9, Glucose Level 85, Calcium Level 8.6, Corrected Calcium 8.3L, Total Bilirubin 0.8, Aspartate Amino Transf (AST/SGOT) 21, Alanine Aminotransferase (ALT/SGPT) 20, Alkaline Phosphatase 65, Total Protein 7.4, Albumin 4.4 Microbiology 09/21/20 Blood Culture - Preliminary, Resulted No growth 09/21/20 Urine Culture - Preliminary, Resulted Escherichia coli 09/21/20 Influenza Types A,B Antigen (PEPE) - Final, Complete Assessment/Plan Assessment/Plan Assessment/Plan 1. Colitis -Continue with soft food diet -Continue pain meds -Colonoscopy outpatient -Discharge pt if pain is controlled and ABX completed 2. UTI -WBC up to 9.7 from 6.6 yesterday -Pt afebrile -Continue ABX SHRUTI HENRY DO 09/24/20 1150: Subjective Time Seen by a Provider: 09:01 Subjective/Events-last exam Pt seen and examined, states he thinks his pain is worse this am. He also has new pain and sensation in rectal area. He is still having copious amounts of diarrhea. Review of Systems General: No Chills HEENT: No Head Aches, No Visual Changes Pulmonary: No Dyspnea Cardiovascular: No: Chest Pain Gastrointestinal: Nausea, Abdominal Pain, Diarrhea; No: Vomiting, Melena, Hematochezia Objective Exam General Appearance: No Apparent Distress, WD/WN Respiratory: Chest Non Tender, Lungs Clear, Normal Breath Sounds, No Accessory Muscle Use, No Respiratory Distress Cardiovascular: Regular Rate, Rhythm, No Murmur Gastrointestinal: abnormal bowel sounds (Hyperechoic), distended (Slightly softer than yesterday), other (Urostomy bag in place pink and fxn) Assessment/Plan Assessment/Plan Assessment/Plan 1. Colitis -Continue diet as tolerated and pain meds, I would still recommend a colonoscopy as outpatient, but may need flex sig inpt if pain does not improve 2. UTI 3. Diarrhea stool for culture, O&P, plus C. Diff Supervisory-Addendum Brief Verification & Attestation Participated in pt care: history, MDM, physical Personally performed: exam, history, MDM Care discussed with: Medical Student Procedures: n/a Verification and Attestation of Medical Student E/M Service A medical student performed and documented this service. I then reviewed and verified all information documented by the medical student and made modifications to such information, when appropriate. I personally performed a physical exam, medical decision making and then discussed any differences between the notes and made revisions as necessary to create one note. Shruti Henry , 09/24/20 , 11:50 KAILEE ADAM MED STUDENT Sep 24, 2020 08:11 SHRUTI HENRY DO Sep 24, 2020 11:50
[2020-09-24] MEDS: PREGABALIN 75 MG (LYRICA) CAP PO SCH ×2 (08:40→20:25)
[2020-09-24] MEDS: CIPROFLOXACIN 500 MG (CIPRO) TABLET PO SCH ×2 (08:40→20:25)
[2020-09-24] MEDS: amLODIPine 10 MG (NORVASC) TAB PO SCH (08:40)
[2020-09-24] MEDS: KCL 20 MEQ TAB (K-DUR) PO SCH ×2 (08:41→20:25)
[2020-09-24] MEDS: LACTOBACILLUS ACIDOPHILUS (PROBIOTIC) CAPSULE PO SCH ×2 (08:41→20:25)
--- NOTE | 2020-09-24 09:28 | Progress Note - Hospitalist ---
Subjective HPI/CC On Admission Date Seen by Provider: Sep 24, 2020 Time Seen by Provider: 09:15 CC: Abdominal pain with colitis HPI: This is a 55yoWM with history of colon cancer s/p ileoconduitt with cystectomy due to inability to perform in-and-out catheters who presented yesterday with colitis and abdominal pain, Dr. Henry saw him in consultation and placed him on clear liquid diet and it appears that he was placed on Zosyn and urine cultures pending but preliminary is Klebsiella. At this current time Pt reports loose stools and will discontinue telemetry. His Covid test was negative. Subjective/Events-last exam Patient is alert sitting in bed. He has had 19 BM yesterday and is already on his 9th this morning. I asked about hx of cdiff and he states " I have had it before". He describes his stools as no bloody, stringy and very smelly. He states his pain is improved but does have more localization of pain to the LLQ today. Overall his pain is improved, he is eating and drinking and urine from conduit is draining clear yellow urine. He has nausea without vomiting last night. No delirium during the overnight. He has been active walking around in his room. Review of Systems General: No Chills Pulmonary: No Dyspnea, No Cough Cardiovascular: No: Chest Pain, Palpitations Gastrointestinal: Nausea, Abdominal Pain (improved and more localized to LLQ); No: Vomiting Focused Exam Lactate Level 09/21/20 15:25: Lactic Acid Level 1.02 Time of Focused Exam: 17:51 Objective Exam Vital Signs Vital Signs Date Time Temp Pulse Resp B/P (MAP) Pulse Ox O2 Delivery O2 Flow Rate FiO2 09/24/20 08:03 97 Room Air 09/24/20 08:01 36.6 69 20 164/88 (113) Capillary Refill : Less Than 3 Seconds General Appearance: No Apparent Distress Respiratory: Chest Non Tender, Normal Breath Sounds, No Accessory Muscle Use, No Respiratory Distress Cardiovascular: Regular Rate, Rhythm, Normal Peripheral Pulses Gastrointestinal: Soft, Tenderness (Minimal LLQ) Back: No Vertebral Tenderness Extremity: No Calf Tenderness Neurologic/Psychiatric: Alert, Oriented x3 Lymphatic: No Adenopathy Results/Procedures Lab Laboratory Tests 09/24/20 06:32 Patient resulted labs reviewed. Assessment/Plan Assessment and Plan Assess & Plan/Chief Complaint Assessment: 1. Colitis 2. Hypokalemia 3. Abnormal Urinary analysis 4. HTN 5. 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 Patient denies being on pottasium citrate or supplement for this. Does not follow with urology. But if he has to he states "I will go back to [facility]". - Abnormal UA, culture pending. - Continue HTN meds - Patient follows with onlcology for hx of colon cancer - monitor labs Plan 09/23 - continue abx - appreciate surg recs - Diet was upgraded to Dysphagia 2 - D/C klonpin - Hypokalemia: improved, ordered PO K+ - UA + for Klebsiella and Ecoli, sensitivity pending. Consider treatment if patient is not improving. 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 - monitor labs, consider ordering a Magnesium level Plan 09/24 - Possible C.diff - continue Abx, consider adding oral vancomycin - contact percaution - Hypokalemia: resolved - UA + Ecoli and Klebsiella, sensitivity for Ecoli reviewed. Will consider treatment. - continue to monitor labs - appreciate surg recs, will have outpatient Colonoscopy with Dr. Henry. FLAVIO GONZALEZ [facility] Sep 24, 2020 09:28
[2020-09-24 11:17] VITALS: BP 167/95
[2020-09-24] MEDS: PANTOPRAZOLE 40 MG (PROTONIX) TAB PO SCH (12:36)
[2020-09-24] MEDS: oxyCODONE ER 20 MG (OxyCONTIN CR) TAB PO SCH ×2 (12:36→20:25)
--- NOTE | 2020-09-24 13:40 | Physician Query Clarification ---
Physician Query-General Query to Physician: Clinical Validation Clarification : Cammie Keys Sepsis has been documented in the medical record. After study, do you consider Sepsis a clinically valid diagnosis? If not clinically valid, please document "(Diagnosis here), ruled out" on the progress notes and/or discharge summary. 1. Not agreed, Sepsis not clinically valid/ruled out 2. Agreed, Sepsis clinically valid diagnosis 3. Other, with explanation of the clinical findings 4. Clinically undetermined, no explanation for the clinical findings Additional information: Admission VS/Labs P 97,RR 20, BP 189/135, SpO2 97% on RA T 38.2 WBC: 8.3, LA 1.02 ER Treatment: Please remember a lack of response to the above will prompt a phone page by CDI/coding staff. In responding to this query, please exercise your independent professional judgment. The purpose of this communication is to more accurately reflect the complexity of your patients condition. The fact that a question is asked does not imply that any particular answer is desired or expected. Thank you for timely response to this clarification. Johanna Whitfield, MSN, RN RN Specialist-Clinical Doc Improvement CD -Health Info Mgmt Operations [address] [facility] t: [phone] | f: [phone] If you are unable to reach me at my extension, I may be working from home. Edna oliveira contact me at [phone] PHYSICIAN RESPONSE: Based on the clinical findings in the record, please respond to the query above on this document as an addendum. Physician Response: Physician Response 1 If you have questions please contact: [employer]: Ext: Thank you for your time and cooperation. Clinical [employer] Operator Helper/[employer] This is a permanent part of the medical record JOHANNA WHITFIELD Sep 24, 2020 13:40 CAMMIE KEYS DO Sep 24, 2020 20:29
[2020-09-24 16:27] VITALS: BP 156/78
[2020-09-24] MEDS: ENOXAPARIN 40 MG/0.4 ML (LOVENOX) SYR SC SCH (20:24)
[2020-09-24 23:39] VITALS: BP 151/83
[2020-09-25] MEDS: NS W/KCL 40 MEQ/L 1,000 ML IV SCH ×2 (00:20→06:46)
[2020-09-25] MEDS: fentaNYL INJECTION 100 MCG/2 ML AMP IV PRN ×2 (01:44→10:43)
[2020-09-25] MEDS: oxyCODONE/APAP 10/325MG (PERCOCET 10) TABLET PO SCH ×2 (03:47→08:12)
[2020-09-25 06:00] LABS: BASOPHILS % (AUTO) 0 % (0-10); EOSINOPHILS # (AUTO) 0.2 10^3/uL (0.0-0.3); EOSINOPHILS % (AUTO) 3 % (0-10); HEMATOCRIT 40 % (40-54); HEMOGLOBIN 12.6 g/dL (13.3-17.7); LYMPHOCYTES # (AUTO) 2.7 10^3/uL (1.0-4.0); LYMPHOCYTES % (AUTO) 38 % (12-44); MEAN CORPUSCULAR HEMOGLOBIN 26 pg (25-34); MEAN CORPUSCULAR HGB CONC 32 g/dL (32-36); MEAN CORPUSCULAR VOLUME 82 fL (80-99); MEAN PLATELET VOLUME 11.3 fL (9.0-12.2); MONOCYTES # (AUTO) 0.4 10^3/uL (0.0-1.0); MONOCYTES % (AUTO) 6 % (0-12); NEUTROPHILS # (AUTO) 3.7 10^3/uL (1.8-7.8); NEUTROPHILS % (AUTO) 52 % (42-75); PLATELET COUNT 188 10^3/uL (130-400); WHITE BLOOD COUNT 7.1 10^3/uL (4.3-11.0)
[2020-09-25 06:14] LABS: ALBUMIN 3.9 GM/DL (3.2-4.5); CHLORIDE 109 MMOL/L (98-107); POTASSIUM 4.3 MMOL/L (3.6-5.0); SODIUM 134 MMOL/L (135-145)
[2020-09-25 06:16] LABS: CALCIUM 8.3 MG/DL (8.5-10.1)
[2020-09-25 06:17] LABS: GLUCOSE 114 MG/DL (70-105); TOTAL PROTEIN 6.4 GM/DL (6.4-8.2)
[2020-09-25 06:18] LABS: CARBON DIOXIDE 18 MMOL/L (21-32)
[2020-09-25 06:19] LABS: BILIRUBIN,TOTAL 0.4 MG/DL (0.1-1.0)
[2020-09-25 06:20] LABS: ALKALINE PHOSPHATASE 64 U/L (40-136); CREATININE SERUM 0.85 MG/DL (0.60-1.30); GFR ESTIMATED > 60
[2020-09-25 06:21] LABS: BUN/CREATININE RATIO 9
[2020-09-25 06:23] LABS: ALANINE AMINOTRANSFERASE 22 U/L (0-55)
[2020-09-25 08:00] VITALS: BP 143/86
[2020-09-25] MEDS: LACTOBACILLUS ACIDOPHILUS (PROBIOTIC) CAPSULE PO SCH (08:11)
[2020-09-25] MEDS: oxyCODONE ER 20 MG (OxyCONTIN CR) TAB PO SCH (08:11)
[2020-09-25] MEDS: amLODIPine 10 MG (NORVASC) TAB PO SCH (08:11)
[2020-09-25] MEDS: CIPROFLOXACIN 500 MG (CIPRO) TABLET PO SCH (08:11)
[2020-09-25] MEDS: KCL 20 MEQ TAB (K-DUR) PO SCH (08:11)
[2020-09-25] MEDS: PREGABALIN 75 MG (LYRICA) CAP PO SCH (08:12)
--- NOTE | 2020-09-25 08:34 | Progress Note - Surgery ---
KAILEE ADAM MED STUDENT 09/25/20 0833: Subjective Date Seen by a Provider: Sep 25, 2020 Time Seen by a Provider: 07:10 Subjective/Events-last exam Pt is awake and alert lying in bed this morning. States that his pain has improved a lot but is still painful. States his anus is still sore. States that Dr Smith changed some of pain medications and it is working a lot better for him. He has had 3 soft BMs since last night. States not diarrhea and that it is improving. States that there is some blood when he wipes. States that he is still on his soft diet, is not having any dysphagia, nausea, or vomiting. Would like to advance his diet to more solid food. He is still ambulating around his room. Stool studies were negative. Review of Systems General: No Chills HEENT: No Head Aches, No Visual Changes, No Ear Pain Pulmonary: No Dyspnea, No Cough Cardiovascular: No: Chest Pain, Palpitations, Edema Gastrointestinal: Abdominal Pain, Diarrhea; No: Nausea, Vomiting, Melena, Hematochezia Genitourinary: No Dysuria, No Hematuria Musculoskeletal: No: leg pain Focused Exam Time of Focused Exam: 17:51 Objective Exam Vital Signs Date Time Temp Pulse Resp B/P (MAP) Pulse Ox O2 Delivery O2 Flow Rate FiO2 09/24/20 23:39 36.4 73 18 151/83 (105) 96 Room Air 09/24/20 20:31 Room Air 09/24/20 16:27 36.6 76 16 156/78 (104) 97 Room Air 09/24/20 11:17 86 18 167/95 (119) 96 Room Air I & O 09/25/20 07:00 Intake Total 3030 ml Output Total 1000 ml Balance 2030 ml Capillary Refill : Less Than 3 Seconds General Appearance: No Apparent Distress, WD/WN Respiratory: Chest Non Tender, Lungs Clear, Normal Breath Sounds, No Accessory Muscle Use, No Respiratory Distress Cardiovascular: Regular Rate, Rhythm, No Murmur Peripheral Pulses: 2+ Radial Pulses (R), 2+ Radial Pulses (L) Gastrointestinal: soft, abnormal bowel sounds (Hyperechoic), tenderness (On LLQ), other (Urostomy bag in place pink and fxn) Extremity: No Calf Tenderness, No Pedal Edema Neurologic/Psychiatric: Alert, Oriented x3 Skin: Normal Color, Warm/Dry Lymphatic: No Adenopathy Results Lab Laboratory Tests 09/25/20 05:28: White Blood Count 7.1, Red Blood Count 4.82, Hemoglobin 12.6L, Hematocrit 40, Mean Corpuscular Volume 82, Mean Corpuscular Hemoglobin 26, Mean Corpuscular Hemoglobin Concent 32, Red Cell Distribution Width 14.1, Platelet Count 188, Mean Platelet Volume 11.3, Immature Granulocyte % (Auto) 0, Neutrophils (%) (Auto) 52, Lymphocytes (%) (Auto) 38, Monocytes (%) (Auto) 6, Eosinophils (%) (Auto) 3, Basophils (%) (Auto) 0, Neutrophils # (Auto) 3.7, Lymphocytes # (Auto) 2.7, Monocytes # (Auto) 0.4, Eosinophils # (Auto) 0.2, Basophils # (Auto) 0.0, Immature Granulocyte # (Auto) 0.0, Sodium Level 134L, Potassium Level 4.3, Chloride Level 109H, Carbon Dioxide Level 18L, Anion Gap 7, Blood Urea Nitrogen 8, Creatinine 0.85, Estimat Glomerular Filtration Rate > 60, BUN/Creatinine Ratio 9, Glucose Level 114H, Calcium Level 8.3L, Corrected Calcium 8.4L, Total Bilirubin 0.4, Aspartate Amino Transf (AST/SGOT) 24, Alanine Aminotransferase (ALT/SGPT) 22, Alkaline Phosphatase 64, Total Protein 6.4, Albumin 3.9 Microbiology 09/24/20 Stool Culture - Preliminary, Resulted 09/21/20 Blood Culture - Preliminary, Resulted No growth 09/21/20 Urine Culture - Final, Complete Escherichia coli 09/21/20 Influenza Types A,B Antigen (PEPE) - Final, Complete Assessment/Plan Assessment/Plan Assessment/Plan 1. Colitis -Improving, pain decreasing and BM more normal. -Advance diet to more solid foods -Continue pain meds -Colonoscopy outpatient -Discharge pt if pain is controlled and ABX completed 2. UTI -WBC down to 7.1 from 9.7yesterday -Pt afebrile -Continue ABX 3. Diarrhea -Stool studies resulted negative -BM more formed today GILDARDO HENRY DO 09/25/20 1203: Subjective Time Seen by a Provider: 10:12 Subjective/Events-last exam Pt seen and examined, states his BMs are more formed but he still has a lot of pain. He is tolerating diet. Review of Systems General: No Chills HEENT: No Head Aches, No Visual Changes Pulmonary: No Dyspnea, No Cough Cardiovascular: No: Chest Pain, Palpitations Gastrointestinal: Abdominal Pain, Diarrhea (improving); No: Nausea, Vomiting, Melena Genitourinary: No Dysuria, No Hematuria Objective Exam General Appearance: No Apparent Distress, WD/WN Respiratory: Lungs Clear, Normal Breath Sounds, No Accessory Muscle Use, No Respiratory Distress Cardiovascular: Regular Rate, Rhythm, No Murmur Gastrointestinal: soft, abnormal bowel sounds (Hyperechoic), tenderness (On LLQ), other (Urostomy bag in place pink and fxn) Assessment/Plan Assessment/Plan Assessment/Plan 1. Colitis -Improving, pain decreasing and BM more normal. -Advance diet to more solid foods -Continue pain meds per IM -Colonoscopy outpatient -OK to Discharge pt from surgical standpoint (could go today if needed) 2. UTI - most likely just colonization 3. Diarrhea -Stool studies resulted negative -BM more formed today Supervisory-Addendum Brief Verification & Attestation Participated in pt care: history, MDM, physical Personally performed: exam, history, MDM Care discussed with: Medical Student Procedures: n/a Verification and Attestation of Medical Student E/M Service A medical student performed and documented this service. I then reviewed and verified all information documented by the medical student and made modifications to such information, when appropriate. I personally performed a p hysical exam, medical decision making and then discussed any differences between the notes and made revisions as necessary to create one note. Gildardo Henry , 09/25/20 , 12:03 KAILEE ADAM MED STUDENT Sep 25, 2020 08:33 GILDARDO HENRY DO Sep 25, 2020 12:03
[2020-09-25] MEDS: PANTOPRAZOLE 40 MG (PROTONIX) TAB PO SCH (12:04)
[2020-09-25] MEDS ORDERED: CIPR500T5 PO (12:19)
[2020-09-25] MEDS ORDERED: OXC20TCR PO (12:19)
[2020-09-25] MEDS ORDERED: OXYC-556 PO (12:19)
[2020-09-25] MEDS ORDERED: POTA10TA36 PO (12:19)
--- NOTE | 2020-09-25 12:39 | Discharge Summary ---
FLAVIO GONZALEZ [facility] [place] 09/25/20 1239: Diagnosis/Chief Complaint Date of Admission Sep 21, 2020 at 18:00 Date of Discharge Discharge Date: Sep 25, 2020 Admission Diagnosis Assessment: Colitis Acute on chronic abdominal pain Hypokalemia Plan: Replace potassium Supportive care IV abx Pain control Primary Care Nisha Booth MD Discharge Diagnosis (1) Gastroenteritis Status: Acute (2) Nausea, vomiting, and diarrhea Status: Acute (3) History of rectal cancer Status: Chronic Discharge Summary Discharge Physical Exam Allergies: Coded Allergies: morphine (Verified Allergy, Intermediate, 01/01/17) codeine (Verified Adverse Reaction, Unknown, NAUSEA, 01/01/17) Vitals & I&Os Vital Signs Date Time Temp Pulse Resp B/P (MAP) Pulse Ox O2 Delivery O2 Flow Rate FiO2 09/25/20 08:40 96 Room Air 09/25/20 08:00 36.6 60 18 143/86 (105) General Appearance: No Apparent Distress Respiratory: Chest Non Tender, Normal Breath Sounds, No Accessory Muscle Use, No Respiratory Distress Cardiovascular: No Edema, Normal Peripheral Pulses Gastrointestinal: Normal Bowel Sounds, Soft, Tenderness (minimal at left flank. Improved ) Extremity: Normal Capillary Refill, No Calf Tenderness Skin: Normal Color, Warm/Dry Neurologic/Psychiatric: Alert, Oriented x3 Hospital Course Was the Problem List Reviewed?: Yes Melvin is a 55 y/o male that presented to [facility] on 09/21/20 and will be discharged today 09/25/20. 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 He was under the care of Internal medicine Dr. Keys and General Surgery Dr. Henry. He presented with severe abdominal pain, N/V and F/C. Labs showed hypokalemia and a positive UA. CT was positive for segmental sigmoid colitis. CXR was unremarkable. The patient received IV Abx, fluids, electrolytes and pain management. Since admission he has improved and is feeling much better. His abdomen is soft with minimal tenderness to the left flank. Tolerating mechanical diet. His labs have normalized or reached an acceptable level. He will be discharged today in stable condition. The patient was instructed to adhere to all medication and follow up appointments outlined in discharge instructions. He expressed understanding. The following information is only a summary of the patients admission at [facility] and is not all inclusive. Please review entire chart for more information. Labs (last 24 hrs) Laboratory Tests 09/25/20 05:28: White Blood Count 7.1, Red Blood Count 4.82, Hemoglobin 12.6L, Hematocrit 40, Mean Corpuscular Volume 82, Mean Corpuscular Hemoglobin 26, Mean Corpuscular Hemoglobin Concent 32, Red Cell Distribution Width 14.1, Platelet Count 188, Mean Platelet Volume 11.3, Immature Granulocyte % (Auto) 0, Neutrophils (%) (Auto) 52, Lymphocytes (%) (Auto) 38, Monocytes (%) (Auto) 6, Eosinophils (%) (Auto) 3, Basophils (%) (Auto) 0, Neutrophils # (Auto) 3.7, Lymphocytes # (Auto) 2.7, Monocytes # (Auto) 0.4, Eosinophils # (Auto) 0.2, Basophils # (Auto) 0.0, Immature Granulocyte # (Auto) 0.0, Sodium Level 134L, Potassium Level 4.3, Chloride Level 109H, Carbon Dioxide Level 18L, Anion Gap 7, Blood Urea Nitrogen 8, Creatinine 0.85, Estimat Glomerular Filtration Rate > 60, BUN/Creatinine Ratio 9, Glucose Level 114H, Calcium Level 8.3L, Corrected Calcium 8.4L, Total Bilirubin 0.4, Aspartate Amino Transf (AST/SGOT) 24, Alanine Aminotransferase (ALT/SGPT) 22, Alkaline Phosphatase 64, Total Protein 6.4, Albumin 3.9 09/25/20 10:46: Glucometer 109 Microbiology 09/24/20 Stool Culture - Preliminary, Resulted 09/21/20 Blood Culture - Preliminary, Resulted No growth 09/21/20 Urine Culture - Final, Complete Escherichia coli 09/21/20 Influenza Types A,B Antigen (PEPE) - Final, Complete Patient resulted labs reviewed. Pending Labs Laboratory Tests 09/25/20 05:28: White Blood Count 7.1, Red Blood Count 4.82, Hemoglobin 12.6, Hematocrit 40, Mean Corpuscular Volume 82, Mean Corpuscular Hemoglobin 26, Mean Corpuscular Hemoglobin Concent 32, Red Cell Distribution Width 14.1, Platelet Count 188, Mean Platelet Volume 11.3, Immature Granulocyte % (Auto) 0, Neutrophils (%) (Auto) 52, Lymphocytes (%) (Auto) 38, Monocytes (%) (Auto) 6, Eosinophils (%) (Auto) 3, Basophils (%) (Auto) 0, Neutrophils # (Auto) 3.7, Lymphocytes # (Auto) 2.7, Monocytes # (Auto) 0.4, Eosinophils # (Auto) 0.2, Basophils # (Auto) 0.0, Immature Granulocyte # (Auto) 0.0, Sodium Level 134, Potassium Level 4.3, Chloride Level 109, Carbon Dioxide Level 18, Anion Gap 7, Blood Urea Nitrogen 8, Creatinine 0.85, Estimat Glomerular Filtration Rate > 60, BUN/Creatinine Ratio 9, Glucose Level 114, Calcium Level 8.3, Corrected Calcium 8.4, Total Bilirubin 0.4, Aspartate Amino Transf (AST/SGOT) 24, Alanine Aminotransferase (ALT/SGPT) 22, Alkaline Phosphatase 64, Total Protein 6.4, Albumin 3.9 09/25/20 10:46: Glucometer 109 Discharge Home Medications: Active Scripts Active Potassium Chloride 10 Meq Tab.er.prt 10 Meq PO DAILY Oxycodone HCl ER (Oxycodone HCl) 20 Mg Tab.er.12h 20 Mg PO BID Ciprofloxacin HCl 500 Mg Tablet 500 Mg PO BID Oxycodone-Acetaminophen 10-325 (Oxycodone HCl/Acetaminophen) 1 Each Tablet 1 Ea PO Q6H Reported Ibuprofen 200 Mg Tablet 400-600 Mg PO Q6H PRN Pregabalin 225 Mg Capsule 225 Mg PO BID Pantoprazole Sodium 40 Mg Tablet.dr 40 Mg PO DAILY PRN Amlodipine Besylate 10 Mg Tablet 10 Mg PO DAILY Sertraline HCl 100 Mg Tablet 100 Mg PO DAILY PRN Instructions to patient/family Please see electronic discharge instructions given to patient. CAMMIE KEYS DO 09/26/202031: Diagnosis/Chief Complaint Discharge Diagnosis (1) Sepsis Status: Resolved (2) Nausea, vomiting, and diarrhea Status: Acute (3) History of rectal cancer Status: Chronic (4) Chronic narcotic dependence Status: Chronic (5) Gastroenteritis Status: Acute (6) Hypokalemia Status: Acute (7) Chronic UTI Status: Chronic (8) Chronic abdominal pain Status: Chronic Discharge Summary Discharge Physical Exam Allergies: Coded Allergies: morphine (Verified Allergy, Intermediate, 01/01/17) codeine (Verified Adverse Reaction, Unknown, NAUSEA, 01/01/17) General Appearance: No Apparent Distress, WD/WN, Chronically ill Hospital Course Was the Problem List Reviewed?: Yes Verification and Attestation of Medical Student E/M Service A medical student performed and documented this service in my presence. I reviewed and verified all information documented by the medical student and made modifications to such information, when appropriate. I personally performed the physical exam and medical decision making. Cammie Keys, Sep 26, 2020,20:32 Discussion & Recommendations Discharge Planning: <30 minutes discharge planning Supervisory-Addendum Brief Verification & Attestation Participated in pt care: history, MDM, physical Personally performed: exam, history, MDM, supervision of care Care discussed with: Medical Student Procedures: n/a Results interpretation: Verified all documentation Verification and Attestation of Medical Student E/M Service A medical student performed and documented this service in my presence. I reviewed and verified all information documented by the medical student and made modifications to such information, when appropriate. I personally performed the physical exam and medical decision making. Cammie Keys, Sep 26, 2020,20:32 Problem Qualifiers (1) Sepsis: Sepsis type: sepsis due to unspecified organism Sepsis acute organ dysfunction status: without acute organ dysfunction Qualified Codes: A41.9 - Sepsis, unspecified organism FLAVIO GONZALEZ Sep 25, 2020 12:39 CAMMIE KEYS DO Sep 26, 2020 20:32
[2020-09-25 13:00] VITALS: BP 155/83
[2020-09-25 13:17] VITALS: BP 143/86
== END 2020-09-25 13:17 | disposition home or self-care (01) | DRG 392 ==
LOC: EDUNIT# 14:54 → ER 14:57 → 4TH 18:00
PROVIDERS: ADMIT Internal Medicine; ATTEND Internal Medicine
DX: K52.9 Noninfective gastroenteritis and colitis, unspecified (principal); N39.0 Urinary tract infection, site not specified; E78.00 Pure hypercholesterolemia, unspecified; I10 Essential (primary) hypertension; K21.9 Gastro-esophageal reflux disease without esophagitis; G89.29 Other chronic pain; M54.9 Dorsalgia, unspecified; Z20.822 Contact with and (suspected) exposure to COVID-19; G43.909 Migraine, unspecified, not intractable, without status migrainosus; F41.9 Anxiety disorder, unspecified; F32.9 Major depressive disorder, single episode, unspecified; G62.9 Polyneuropathy, unspecified; M19.90 Unspecified osteoarthritis, unspecified site; E87.6 Hypokalemia; J44.9 Chronic obstructive pulmonary disease, unspecified; F17.210 Nicotine dependence, cigarettes, uncomplicated; Z85.038 Personal history of other malignant neoplasm of large intestine
CPT/HCPCS: 36415; 71045; 74177; 80053; 81000; 82962; 83605; 84145; 85025; 85610; 85730; 86141; 87015; 87040; 87045; 87046; 87077; 87088; 87186; 87324; 87328; 87329; 87449; 87635; 87804; 87899; 94760; 96361; 96365; 96366; 96375; 96376

== ENCOUNTER 2020-10-26 14:23 | Outpatient (RCR) | payer MEDICARE, MEDICAID ==
[~2020-10-26 14:23] MED LIST changes: +CIPR500T5 PO; +HYOS0.1296 SL; +IBUP-2473 PO; -OMEP40CA27 PO; +OMEP40CA6 PO; +OXC20TCR PO; +OXC5T PO; +OXYC1TAB12 PO; +POTA-51 PO; -SULF1TAB35 PO; +SULF1TAB38 PO
[2020-10-26 14:39] LABS: BASOPHILS % (AUTO) 0 % (0-10); EOSINOPHILS # (AUTO) 0.2 10^3/uL (0.0-0.3); EOSINOPHILS % (AUTO) 2 % (0-10); HEMATOCRIT 42 % (40-54); HEMOGLOBIN 13.7 g/dL (13.3-17.7); LYMPHOCYTES # (AUTO) 2.6 X 10^3 (1.0-4.0); LYMPHOCYTES % (AUTO) 32 % (12-44); MEAN CORPUSCULAR HEMOGLOBIN 26 pg (25-34); MEAN CORPUSCULAR HGB CONC 33 g/dL (32-36); MEAN CORPUSCULAR VOLUME 80 fL (80-99); MEAN PLATELET VOLUME 10.6 fL (9.0-12.2); MONOCYTES # (AUTO) 0.4 X 10^3 (0.0-1.0); MONOCYTES % (AUTO) 5 % (0-12); NEUTROPHILS % (AUTO) 61 % (42-75); PLATELET COUNT 273 10^3/uL (130-400); WHITE BLOOD COUNT 8.3 10^3/uL (4.3-11.0)
[2020-10-26 14:57] LABS: ALANINE AMINOTRANSFERASE 24 U/L (0-55); ALBUMIN 4.4 GM/DL (3.2-4.5); ALKALINE PHOSPHATASE 84 U/L (40-136); BILIRUBIN,TOTAL 0.4 MG/DL (0.1-1.0); BUN/CREATININE RATIO 14; CALCIUM 8.6 MG/DL (8.5-10.1); CARBON DIOXIDE 20 MMOL/L (21-32); CHLORIDE 107 MMOL/L (98-107); CREATININE SERUM 1.19 MG/DL (0.60-1.30); GFR ESTIMATED > 60; GLUCOSE 119 MG/DL (70-105); POTASSIUM 3.6 MMOL/L (3.6-5.0); SODIUM 136 MMOL/L (135-145); TOTAL PROTEIN 7.3 GM/DL (6.4-8.2)
== END 2021-01-24 | disposition home or self-care (01) ==
LOC: ONC 14:23
PROVIDERS: ATTEND Internal Medicine Hematology & Oncology
DX: C19 Malignant neoplasm of rectosigmoid junction (principal); K52.9 Noninfective gastroenteritis and colitis, unspecified; K76.0 Fatty (change of) liver, not elsewhere classified; F32.9 Major depressive disorder, single episode, unspecified; G47.00 Insomnia, unspecified; K31.84 Gastroparesis; K21.9 Gastro-esophageal reflux disease without esophagitis; N52.9 Male erectile dysfunction, unspecified; E66.9 Obesity, unspecified; D50.9 Iron deficiency anemia, unspecified; N39.0 Urinary tract infection, site not specified; Z92.3 Personal history of irradiation; Z92.21 Personal history of antineoplastic chemotherapy; Z98.890 Other specified postprocedural states; Z86.16 Personal history of COVID-19; Z68.31 Body mass index [BMI] 31.0-31.9, adult; Z79.899 Other long term (current) drug therapy; Z79.2 Long term (current) use of antibiotics; Z79.52 Long term (current) use of systemic steroids
CPT/HCPCS: 80053; 82378; 85025; 99213

== ENCOUNTER 2021-02-23 15:29 | Outpatient (RCR) | payer MEDICARE, MEDICAID ==
[2021-02-23 14:32] LABS: BASOPHILS % (AUTO) 1 % (0-10); EOSINOPHILS # (AUTO) 0.3 10^3/uL (0.0-0.3); EOSINOPHILS % (AUTO) 4 % (0-10); HEMATOCRIT 41 % (40-54); HEMOGLOBIN 13.6 g/dL (13.3-17.7); LYMPHOCYTES # (AUTO) 2.4 10^3/uL (1.0-4.0); LYMPHOCYTES % (AUTO) 32 % (12-44); MEAN CORPUSCULAR HEMOGLOBIN 27 pg (25-34); MEAN CORPUSCULAR HGB CONC 33 g/dL (32-36); MEAN CORPUSCULAR VOLUME 81 fL (80-99); MEAN PLATELET VOLUME 10.5 fL (9.0-12.2); MONOCYTES # (AUTO) 0.5 10^3/uL (0.0-1.0); MONOCYTES % (AUTO) 6 % (0-12); NEUTROPHILS # (AUTO) 4.3 10^3/uL (1.8-7.8); NEUTROPHILS % (AUTO) 57 % (42-75); PLATELET COUNT 268 10^3/uL (130-400); WHITE BLOOD COUNT 7.5 10^3/uL (4.3-11.0)
[2021-02-23 14:49] LABS: ALBUMIN 4.3 GM/DL (3.2-4.5); BILIRUBIN,TOTAL 0.5 MG/DL (0.1-1.0); CALCIUM 9.2 MG/DL (8.5-10.1); CREATININE SERUM 1.22 MG/DL (0.60-1.30); POTASSIUM 3.7 MMOL/L (3.6-5.0); TOTAL PROTEIN 7.7 GM/DL (6.4-8.2)
[2021-03-25] MEDS ORDERED: SULF1TAB38 PO (21:12)
[2021-03-25] MEDS ORDERED: ONDA8TAB13 PO (21:12)
== END 2021-05-24 | disposition home or self-care (01) ==
LOC: ONC 15:29
PROVIDERS: ATTEND Internal Medicine Hematology & Oncology
DX: C19 Malignant neoplasm of rectosigmoid junction (principal); K52.9 Noninfective gastroenteritis and colitis, unspecified; K76.0 Fatty (change of) liver, not elsewhere classified; F32.9 Major depressive disorder, single episode, unspecified; G47.00 Insomnia, unspecified; K31.84 Gastroparesis; K21.9 Gastro-esophageal reflux disease without esophagitis; N52.9 Male erectile dysfunction, unspecified; E66.9 Obesity, unspecified; D50.9 Iron deficiency anemia, unspecified; N39.0 Urinary tract infection, site not specified; Z92.3 Personal history of irradiation; Z92.21 Personal history of antineoplastic chemotherapy; Z98.890 Other specified postprocedural states; Z86.16 Personal history of COVID-19; Z68.31 Body mass index [BMI] 31.0-31.9, adult; Z79.899 Other long term (current) drug therapy; Z79.2 Long term (current) use of antibiotics; Z79.52 Long term (current) use of systemic steroids
CPT/HCPCS: 80053; 82378; 85025; 99213

== ENCOUNTER 2021-03-25 18:01 | Emergency (ER) | payer MEDICARE, MEDICAID ==
[~2021-03-25] VITALS: Ht 170.2 cm; Wt 86.2 kg
--- NOTE | 2021-03-25 18:58 | ED General ---
General Chief Complaint: COVID19 Suspect/Confirmed Stated Complaint: COUGH, SNEEZING, VOMITING, CHILLS Nursing Triage Note: pt amb to rm 9 with complaint of n/v, cough, runny nose and sore throat. has not taken medications due to vomiting. states started 2 days ago. Source of Information: Patient Exam Limitations: No Limitations History of Present Illness Date Seen by Provider: Mar 25, 2021 Time Seen by Provider: 18:58 Initial Comments To ER with suprapubic abdominal pain nausea vomiting cough and sneezing. He had Covid 4 months ago but is not vaccinated against Covid. No fevers but he has had chills. He has a urostomy secondary to cystectomy after rectal cancer in 2013 and he states that his "bladder exploded". The symptoms began 2 days ago. Timing/Duration: 1-2 Days Severity: Moderate Associated Systoms: Nausea/Vomiting Allergies and Home Medications Allergies Coded Allergies: morphine (Verified Allergy, Intermediate, 01/01/17) codeine (Verified Adverse Reaction, Unknown, NAUSEA, 01/01/17) Patient Home Medication List Home Medication List Reviewed: Yes Amlodipine Besylate (Amlodipine Besylate) 10 Mg Tablet, 10 MG PO DAILY, ( Reported) Entered as Reported by: BELA DUBON on 06/11/18 1401 Hyoscyamine Sulfate (Oscimin) 0.125 Mg Tablet, 0.25 MG SL Q4H PRN for CRAMPS Prescribed by: ABRIL KEYS on 10/12/20 1016 Ibuprofen (Ibuprofen) 200 Mg Tablet, 400-600 MG PO Q6H PRN for PAIN-MILD (1-4), (Reported) Entered as Reported by: YAIR DOMINGUEZ on 09/22/20 1051 Metoclopramide HCl (Reglan) 10 Mg Tablet, 10 MG PO ACHS Prescribed by: ABRIL KEYS on 10/12/20 1016 Oxycodone HCl (Oxycodone HCl ER) 20 Mg Tab.er.12h, 20 MG PO BID Prescribed by: ABRIL KEYS on 10/12/20 1017 Oxycodone Hcl (Oxyir Tablet) 5 Mg Tab, 10 MG PO Q4H PRN for PAIN-SEVERE (8-10) Prescribed by: ABRIL KEYS on 10/12/20 1017 Pantoprazole Sodium (Pantoprazole Sodium) 40 Mg Tablet.dr, 40 MG PO DAILY PRN for HEARTBURN, (Reported) Entered as Reported by: YAIR DOMINGUEZ on 01/15/20 08 Potassium Chloride (Potassium Chloride) 20 Meq Tablet.er, 20 MEQ PO BID Prescribed by: ABRIL KEYS on 10/12/20 1016 Pregabalin (Pregabalin) 225 Mg Capsule, 225 MG PO BID, (Reported) Entered as Reported by: YAIR DOMINGUEZ on 01/15/20 08 Sertraline HCl (Sertraline HCl) 100 Mg Tablet, 100 MG PO DAILY PRN for EMOTIONS, (Reported) Entered as Reported by: BELA DUBON on 06/11/18 1401 Review of Systems Review of Systems Constitutional: see HPI EENTM: see HPI Respiratory: no symptoms reported Cardiovascular: no symptoms reported Gastrointestinal: abdominal pain Genitourinary: no symptoms reported Musculoskeletal: no symptoms reported Skin: no symptoms reported Psychiatric/Neurological: No Symptoms Reported Hematologic/Lymphatic: No Symptoms Reported Past Qqebhte-Pxqzet-Nkmzqu Hx Patient Social History Tobacco Use?: No Use of E-Cig and/or Vaping dev: No Substance use?: No Alcohol Use?: No Pt feels they are or have been: No Immunizations Up To Date Tetanus Booster (TDap): Unknown PED Vaccines UTD: No Seasonal Allergies Seasonal Allergies: No Past Medical History Surgeries: Yes (urostomy, colonresection) Abdominal Respiratory: No Currently Using CPAP: No Currently Using BIPAP: No Cardiac: Yes High Cholesterol, Hypertension Neurological: Yes Headaches /Migraines, Neuropathy Reproductive Disorders: Yes (E.D.) Sexually Transmitted Disease: No HIV/AIDS: No Genitourinary: Yes Neurogenic Bladder, UTI-Chronic Gastrointestinal: Yes Colitis, Gastroesophageal Reflux, Chronic Constipation Musculoskeletal: No Arthritis, Chronic Back Pain Endocrine: No HEENT: No Loss of Vision: Denies Hearing Impairment: Denies Cancer: Yes Colon Did You Recieve Any Treatments: Yes What Type of Treatment Did You: Surgical Intervention Psychosocial: Yes Anxiety, Depression Integumentary: No Blood Disorders: No Adverse Reaction/Blood Tranf: No Family Medical History Cataract 03 FATHER, Onset:Unknown Chest pain 03 FATHER, Onset:50's - 60 Family history: Allergy 03 MOTHER Family history: Arthritis 03 FATHER 03 MOTHER Family history: Asthma 03 MOTHER Family history: Cardiovascular disease 03 FATHER Family history: Diabetes mellitus 03 FATHER 03 MOTHER Family history: Hypertension 03 FATHER 03 MOTHER Headache 03 FATHER 03 MOTHER Heart disease 03 FATHER History of - respiratory disease 03 MOTHER Hypercholesterolemia 03 FATHER 03 MOTHER Kidney disease 03 MOTHER Psychotic disorder 03 MOTHER Visual impairment 03 FATHER 03 MOTHER No Family History of: Abdominal aortic aneurysm Ney's disease Alcoholism Aphasia Cancer Cancer of colon Congenital heart disease Congestive heart failure Cystic fibrosis Dementia Dysphagia Family history: Alzheimer's disease Family history: Breast disease Family history: Coronary thrombosis Family history: Gastrointestinal disease Family history: Glaucoma Family history: Osteoporosis Family history: Thyroid disorder Hearing loss Hereditary disease History of - anemia History of - disorder History of drug abuse Human immunodeficiency virus (HIV) seropositivity Infertile Malignant neoplasm of lung Myocardial infarction Parkinson's disease Prostate cancer Seizure disorder Stroke Tuberculosis CAD Under 55 Years Old, COPD, Diabetes, Hypertension Physical Exam Vital Signs Vital Signs - First Documented 03/25/21 18:35 Temp 35.6 Pulse 81 Resp 16 B/P (MAP) 157/101 (119) Pulse Ox 99 O2 Delivery Room Air Capillary Refill : Less Than 3 Seconds Height, Weight, BMI Height: 5'7.00" Weight: 197lbs. 3.0oz. 89.054201fi; 29.00 BMI Method:Estimated General Appearance: No Apparent Distress, WD/WN Eyes: Bilateral Eye Normal Inspection, Bilateral Eye PERRL, Bilateral Eye EOMI Neck: Full Range of Motion, Normal Inspection Respiratory: No Accessory Muscle Use, No Respiratory Distress Gastrointestinal: Soft, Tenderness Extremity: Normal Capillary Refill, Normal Inspection Neurologic/Psychiatric: Alert, Oriented x3 Skin: Normal Color, Warm/Dry Progress/Results/Core Measures Suspected Sepsis SIRS Temperature: Pulse: 81 Respiratory Rate: 16 Laboratory Tests 03/25/21 19:09: White Blood Count 10.3 Blood Pressure 157 /101 Mean: 119 Laboratory Tests 03/25/21 19:09: Creatinine 1.01, Platelet Count 360, Total Bilirubin 0.9 Results/Orders Lab Results Laboratory Tests Test 03/25/21 18:45 03/25/21 19:09 03/25/21 19:27 Range/Units SARS-CoV-2 RNA (RT-PCR) Not Detected Not Detecte White Blood Count 10.3 4.3-11.0 10^3/uL Red Blood Count 5.65 H 4.30-5.52 10^6/uL Hemoglobin 15.0 13.3-17.7 g/dL Hematocrit 46 40-54 % Mean Corpuscular Volume 81 80-99 fL Mean Corpuscular Hemoglobin 27 25-34 pg Mean Corpuscular Hemoglobin Concent 33 32-36 g/dL Red Cell Distribution Width 13.8 10.0-14.5 % Platelet Count 360 130-400 10^3/uL Mean Platelet Volume 10.3 9.0-12.2 fL Immature Granulocyte % (Auto) 1 % Neutrophils (%) (Auto) 81 H 42-75 % Lymphocytes (%) (Auto) 15 12-44 % Monocytes (%) (Auto) 4 0-12 % Eosinophils (%) (Auto) 0 0-10 % Basophils (%) (Auto) 0 0-10 % Neutrophils # (Auto) 8.3 H 1.8-7.8 10^3/uL Lymphocytes # (Auto) 1.5 1.0-4.0 10^3/uL Monocytes # (Auto) 0.4 0.0-1.0 10^3/uL Eosinophils # (Auto) 0.0 0.0-0.3 10^3/uL Basophils # (Auto) 0.0 0.0-0.1 10^3/uL Immature Granulocyte # (Auto) 0.1 0.0-0.1 10^3/uL Sodium Level 140 135-145 MMOL/L Potassium Level 3.3 L 3.6-5.0 MMOL/L Chloride Level 106 98-107 MMOL/L Carbon Dioxide Level 20 L 21-32 MMOL/L Anion Gap 14 5-14 MMOL/L Blood Urea Nitrogen 12 7-18 MG/DL Creatinine 1.01 0.60-1.30 MG/DL Estimat Glomerular Filtration Rate 77 BUN/Creatinine Ratio 12 Glucose Level 118 H 70-105 MG/DL Calcium Level 9.9 8.5-10.1 MG/DL Corrected Calcium 8.5-10.1 MG/DL Total Bilirubin 0.9 0.1-1.0 MG/DL Aspartate Amino Transf (AST/SGOT) 31 5-34 U/L Alanine Aminotransferase (ALT/SGPT) 27 0-55 U/L Alkaline Phosphatase 94 40-136 U/L Total Protein 8.4 H 6.4-8.2 GM/DL Albumin 4.7 H 3.2-4.5 GM/DL Urine Color YELLOW Urine Clarity CLOUDY Urine pH 7.5 5-9 Urine Specific [place] 1.020 1.016-1.022 Urine Protein 1+ H NEGATIVE Urine Glucose (UA) NEGATIVE NEGATIVE Urine Ketones TRACE H NEGATIVE Urine Nitrite POSITIVE H NEGATIVE Urine Bilirubin NEGATIVE NEGATIVE Urine Urobilinogen 0.2 < = 1.0 MG/DL Urine Leukocyte Esterase 2+ H NEGATIVE Urine RBC (Auto) TRACE-I NEGATIVE Urine RBC RARE /HPF Urine WBC 10-25 H /HPF Urine Squamous Epithelial Cells RARE /HPF Urine Crystals NONE /LPF Urine Bacteria LARGE H /HPF Urine Casts NONE /LPF Urine Mucus NEGATIVE /LPF Urine Culture Indicated YES My Orders Orders - STEVEN MCCANN APRN Covid 19 Inhouse Test (03/25/21 18:45) Ondansetron Oral Dissolve Tab (Zofran (03/25/21 19:15) Ondansetron Injection (Zofran Injectio (03/25/21 19:04) Cbc With Automated Diff (03/25/21 19:16) Comprehensive Metabolic Panel (03/25/21 19:16) Ua Culture If Indicated (03/25/21 19:16) Ed Iv/Invasive Line Start (03/25/21 19:16) Lactated Ringers (Lr 1000 Ml Iv Solution (03/25/21 19:30) Fentanyl Inj (Sublimaze Injection) (03/25/21 19:30) Urine Culture (03/25/21 19:27) Ceftriaxone (Rocephin) (03/25/21 20:15) Ct Abdomen/Pelvis W (03/25/21 20:18) Iohexol Injection (Omnipaque 350 Mg/Ml 1 (03/25/21 20:30) Received Contrast (Hold Metformin- Contr (03/25/21 20:30) Ns (Ivpb) (Sodium Chloride 0.9% Ivpb Bag (03/25/21 20:30) Medications Given in ED Current Medications Medications Dose Ordered Sig/Kenny Route Start Time Stop Time Status Last Admin Dose Admin Ceftriaxone Sodium 1000 mg/ Sterile Water 10 ml @ 200 mls/hr ONCE ONCE IV 03/25/21 20:15 03/25/21 20:17 DC 03/25/21 20:17 200 MLS/HR Fentanyl Citrate 75 mcg ONCE ONCE IVP 03/25/21 19:30 03/25/21 19:31 DC 03/25/21 19:24 75 MCG Iohexol 100 ml ONCE ONCE IV 03/25/21 20:30 03/25/21 20:31 DC 03/25/21 20:32 100 ML Ondansetron HCl 8 mg ONCE ONCE PO 03/25/21 19:15 03/25/21 19:16 DC 03/25/21 19:10 8 MG Sodium Chloride 100 ml ONCE ONCE IV 03/25/21 20:30 03/25/21 20:31 DC 03/25/21 20:32 80 ML Vital Signs/I&O 03/25/21 18:35 Temp 35.6 Pulse 81 Resp 16 B/P (MAP) 157/101 (119) Pulse Ox 99 O2 Delivery Room Air Capillary Refill : Less Than 3 Seconds Blood Pressure Mean: 119 Departure Communication (Admissions) Family Conversation [id number]-states that he still has some nausea and his pain is starting to come back. Discussed with him that I have no indication for admission. Will need to give him his home dose of pain medication, some IV Phenergan, Rocephin and discharged home with Bactrim for UTI. NAME: HAMLETWAYLON Denita Dean [facility] REC#: [id number] PT STATUS: REG ER : 1965 PHYSICIAN: STEVEN MCCANN ABSTRACT CLERK ADMIT DATE: 03/25/21/ER Draft Date of Exam:03/25/21 CT ABDOMEN/PELVIS W CT abdomen/pelvis with contrast. TECHNIQUE: Multiple contiguous axial images were obtained through the abdomen and pelvis after administration of intravenous contrast. All CT scans use one or more of the following dose optimizing techniques: automated exposure control, MA and/or KvP adjustment based on patient size and exam type or iterative reconstruction. INDICATION: Lower abdominal pain. History of rectal cancer. COMPARISON: 10/03/2020. FINDINGS: Lower chest: The lung bases are clear. No pericardial or pleural effusion. Peritoneum: No free intraperitoneal air or fluid. Liver and biliary system: Unchanged diffuse hepatic steatosis. No focal hepatic lesion. The gallbladder is normal. No biliary duct dilation. Spleen and Pancreas: Spleen is normal. The pancreas enhances normally without mass lesion or peripancreatic inflammatory changes. Adrenals: Normal. tract: Status post cystectomy with diverting ileostomy in the left lower quadrant. Mild dilation of the ureters is unchanged and expected with prior cystectomy. No renal or ureteral stone. No solid renal mass. GI tract: Stomach is partially filled with fluid and air. No bowel obstruction. Stable postoperative changes of distal colon resection. There remains mild wall thickening in the sigmoid colon without surrounding inflammatory induration. The appendix is surgically absent. Vasculature and Lymph nodes: Normal caliber aorta. No abdominal or pelvic lymphadenopathy. Musculoskeletal: No concerning osseous lesion. IMPRESSION: 1. Unchanged distal colonic wall thickening and presacral soft tissue thickening all likely due to post treatment change. No features of acute colitis. 2. Cystectomy without urinary tract obstruction. 3. Unchanged diffuse hepatic steatosis. Dictated on workstation # [id number] Dict: 03/25/212047 Trans: 03/25/212054 [facility] [id number] Interpreted by: JUAN LUIS NORIEGA MD Electronically signed by: Impression Primary Impression: Nausea, vomiting, and diarrhea Additional Impression: Urinary tract infection Disposition: 01 HOME, SELF-CARE Condition: Stable Departure-Patient Inst. Decision time for Depature: 21:07 Referrals: PAPO DAMON MD (PCP/Family) Primary Care Physician Patient Instructions: Nausea and Vomiting, Adult, Urinary Tract Infection, Adult (DC) Scripts Ondansetron (Ondansetron Odt) 8 Mg Tab.rapdis 8 MG PO Q6H PRN for NAUSEA-1ST LINE, #10 TAB Prov: STEVEN MCCANN APRN 03/25/21 Sulfamethoxazole/Trimethoprim (Bactrim Ds Tablet) 1 Each Tablet 1 EACH PO BID, #20 TAB Prov: STEVEN MCCANN APRN 03/25/21 STEVEN MCCANN APRN Mar 25, 2021 18:58
[2021-03-25] MEDS ORDERED: ONDANSETRON 4 MG/2 ML (SDV) Z0FRAN ONE (19:04)
[2021-03-25] MEDS ORDERED: ONDANSETRON 4 MG (ZOFRAN) ORAL DISSOLVE TAB PO ONE (19:15)
[2021-03-25 19:23] LABS: BASOPHILS % (AUTO) 0 % (0-10); EOSINOPHILS % (AUTO) 0 % (0-10); HEMATOCRIT 46 % (40-54); LYMPHOCYTES # (AUTO) 1.5 10^3/uL (1.0-4.0); LYMPHOCYTES % (AUTO) 15 % (12-44); MEAN CORPUSCULAR HEMOGLOBIN 27 pg (25-34); MEAN CORPUSCULAR HGB CONC 33 g/dL (32-36); MEAN CORPUSCULAR VOLUME 81 fL (80-99); MEAN PLATELET VOLUME 10.3 fL (9.0-12.2); MONOCYTES # (AUTO) 0.4 10^3/uL (0.0-1.0); MONOCYTES % (AUTO) 4 % (0-12); NEUTROPHILS # (AUTO) 8.3 10^3/uL (1.8-7.8); NEUTROPHILS % (AUTO) 81 % (42-75); PLATELET COUNT 360 10^3/uL (130-400); WHITE BLOOD COUNT 10.3 10^3/uL (4.3-11.0)
[2021-03-25] MEDS ORDERED: fentaNYL INJ 100 MCG/2 ML AMP IVP ONE (19:30)
[2021-03-25] MEDS ORDERED: LACTATED RINGERS 1,000 ML IV SCH (19:30)
[2021-03-25 19:32] LABS: ALBUMIN 4.7 GM/DL (3.2-4.5); CHLORIDE 106 MMOL/L (98-107); POTASSIUM 3.3 MMOL/L (3.6-5.0); SODIUM 140 MMOL/L (135-145)
[2021-03-25 19:33] LABS: BILIRUBIN,URINE NEGATIVE (NEGATIVE); CLARITY,URINE CLOUDY; COLOR,URINE YELLOW; GLUCOSE, URINE (UA) NEGATIVE (NEGATIVE); KETONES,URINE TRACE (NEGATIVE); LEUKOCYTE ESTERASE ,URINE 2+ (NEGATIVE); NITRITE,URINE POSITIVE (NEGATIVE); PH,URINE 7.5 (5-9); PROTEIN,URINE 1+ (NEGATIVE)
[2021-03-25 19:34] LABS: CALCIUM 9.9 MG/DL (8.5-10.1)
[2021-03-25 19:35] LABS: GLUCOSE 118 MG/DL (70-105); TOTAL PROTEIN 8.4 GM/DL (6.4-8.2)
[2021-03-25 19:36] LABS: CARBON DIOXIDE 20 MMOL/L (21-32)
[2021-03-25 19:37] LABS: BILIRUBIN,TOTAL 0.9 MG/DL (0.1-1.0)
[2021-03-25 19:38] LABS: ALKALINE PHOSPHATASE 94 U/L (40-136); CREATININE SERUM 1.01 MG/DL (0.60-1.30); GFR ESTIMATED 77
[2021-03-25 19:39] LABS: BUN/CREATININE RATIO 12
[2021-03-25 19:40] LABS: BACTERIA,URINE LARGE /HPF; RBC,URINE RARE /HPF; SQUAMOUS EPITHELIAL CELL,UR RARE /HPF
[2021-03-25 19:41] LABS: ALANINE AMINOTRANSFERASE 27 U/L (0-55)
[2021-03-25] MEDS ORDERED: cefTRIAXone 1,000 MG in WATER (STERILE) FOR INJECTION 10 ML IV ONE (20:15)
[2021-03-25] MEDS ORDERED: HOLD METFORMIN - RECEIVED CONTRAST 20 ML VIAL IV SCH (20:30)
[2021-03-25] MEDS ORDERED: IOHEXOL 350 MG/ML 100 ML (OMNIPAQUE 350) VIAL IV ONE (20:30)
[2021-03-25] MEDS ORDERED: NS 100 ML (IVPB) BAG IV ONE (20:30)
--- NOTE | 2021-03-25 20:56 | Diagnostic Imaging Report ---
CT abdomen/pelvis with contrast. TECHNIQUE: Multiple contiguous axial images were obtained through the abdomen and pelvis after administration of intravenous contrast. All CT scans use one or more of the following dose optimizing techniques: automated exposure control, MA and/or KvP adjustment based on patient size and exam type or iterative reconstruction. INDICATION: Lower abdominal pain. History of rectal cancer. COMPARISON: 10/03/2020. FINDINGS: Lower chest: The lung bases are clear. No pericardial or pleural effusion. Peritoneum: No free intraperitoneal air or fluid. Liver and biliary system: Unchanged diffuse hepatic steatosis. No focal hepatic lesion. The gallbladder is normal. No biliary duct dilation. Spleen and Pancreas: Spleen is normal. The pancreas enhances normally without mass lesion or peripancreatic inflammatory changes. Adrenals: Normal. tract: Status post cystectomy with diverting ileostomy in the left lower quadrant. Mild dilation of the ureters is unchanged and expected with prior cystectomy. No renal or ureteral stone. No solid renal mass. GI tract: Stomach is partially filled with fluid and air. No bowel obstruction. Stable postoperative changes of distal colon resection. There remains mild wall thickening in the sigmoid colon without surrounding inflammatory induration. The appendix is surgically absent. Vasculature and Lymph nodes: Normal caliber aorta. No abdominal or pelvic lymphadenopathy. Musculoskeletal: No concerning osseous lesion. IMPRESSION: 1. Unchanged distal colonic wall thickening and presacral soft tissue thickening all likely due to post treatment change. No features of acute colitis. 2. Cystectomy without urinary tract obstruction. 3. Unchanged diffuse hepatic steatosis. Dictated by: Dictated on workstation # [id number]
[2021-03-25] MEDS ORDERED: SULF1TAB38 PO (21:12)
[2021-03-25] MEDS ORDERED: ONDA8TAB13 PO (21:12)
[2021-03-25] MEDS ORDERED: oxyCODONE ER 20 MG (OxyCONTIN CR) TAB PO ONE (21:15)
[2021-03-25] MEDS ORDERED: PROMETHAZINE INJ 25 MG/ML (PHENERGAN) AMP IVP ONE (21:15)
[2021-03-25] MEDS ORDERED: TRIM/SULFAMETH 160/800 (SEPTRA DS) TAB PO ONE (21:15)
[2021-03-25] MEDS ORDERED: oxyCODONE/APAP 10/325MG (PERCOCET 10) TABLET PO ONE (21:15)
[2021-03-25 21:45] VITALS: BP 136/84
== END 2021-03-25 21:45 | disposition home or self-care (01) ==
LOC: EDUNIT# 18:01 → ER 18:03
DX: R11.2 Nausea with vomiting, unspecified (principal); R19.7 Diarrhea, unspecified; N39.0 Urinary tract infection, site not specified; I10 Essential (primary) hypertension; F41.9 Anxiety disorder, unspecified; F32.9 Major depressive disorder, single episode, unspecified; K21.9 Gastro-esophageal reflux disease without esophagitis; G89.29 Other chronic pain; M54.9 Dorsalgia, unspecified; Z20.822 Contact with and (suspected) exposure to COVID-19; Z79.899 Other long term (current) drug therapy; Z79.891 Long term (current) use of opiate analgesic
CPT/HCPCS: 36415; 74177; 80053; 81000; 85025; 87077; 87088; 87186; 87636

== ENCOUNTER 2021-08-31 14:19 | Outpatient (RCR) | payer MEDICARE, MEDICAID ==
[~2021-08-31 14:19] MED LIST changes: +POTA10TA37 PO
[2021-08-31 14:34] LABS: BASOPHILS % (AUTO) 0 % (0-10); EOSINOPHILS # (AUTO) 0.2 10^3/uL (0.0-0.3); EOSINOPHILS % (AUTO) 3 % (0-10); HEMATOCRIT 37 % (40-54); LYMPHOCYTES # (AUTO) 1.6 10^3/uL (1.0-4.0); LYMPHOCYTES % (AUTO) 23 % (12-44); MEAN CORPUSCULAR HEMOGLOBIN 27 pg (25-34); MEAN CORPUSCULAR HGB CONC 33 g/dL (32-36); MEAN CORPUSCULAR VOLUME 81 fL (80-99); MEAN PLATELET VOLUME 10.8 fL (9.0-12.2); MONOCYTES # (AUTO) 0.4 10^3/uL (0.0-1.0); MONOCYTES % (AUTO) 6 % (0-12); NEUTROPHILS # (AUTO) 4.6 10^3/uL (1.8-7.8); NEUTROPHILS % (AUTO) 68 % (42-75); PLATELET COUNT 274 10^3/uL (130-400); WHITE BLOOD COUNT 6.8 10^3/uL (4.3-11.0)
[2021-08-31 14:54] LABS: ALBUMIN 3.9 GM/DL (3.2-4.5); BILIRUBIN,TOTAL 0.7 MG/DL (0.1-1.0); CALCIUM 8.5 MG/DL (8.5-10.1); CREATININE SERUM 1.35 MG/DL (0.60-1.30); POTASSIUM 3.8 MMOL/L (3.6-5.0); TOTAL PROTEIN 6.9 GM/DL (6.4-8.2)
== END 2021-09-13 | disposition home or self-care (01) ==
LOC: ONC 14:19
PROVIDERS: ATTEND Internal Medicine Hematology & Oncology
DX: C19 Malignant neoplasm of rectosigmoid junction (principal); K52.9 Noninfective gastroenteritis and colitis, unspecified; K76.0 Fatty (change of) liver, not elsewhere classified; F32.9 Major depressive disorder, single episode, unspecified; G47.00 Insomnia, unspecified; K31.84 Gastroparesis; K21.9 Gastro-esophageal reflux disease without esophagitis; N52.9 Male erectile dysfunction, unspecified; E66.9 Obesity, unspecified; D50.9 Iron deficiency anemia, unspecified; N39.0 Urinary tract infection, site not specified; Z92.3 Personal history of irradiation; Z92.21 Personal history of antineoplastic chemotherapy; Z98.890 Other specified postprocedural states; Z86.16 Personal history of COVID-19; Z68.31 Body mass index [BMI] 31.0-31.9, adult; Z79.899 Other long term (current) drug therapy; Z79.2 Long term (current) use of antibiotics; Z79.52 Long term (current) use of systemic steroids
CPT/HCPCS: 36415; 80053; 82728; 83540; 83550; 85025; 99213

== ENCOUNTER 2021-12-08 10:20 | Outpatient (RCR) | payer MEDICARE, MEDICAID ==
[~2021-12-08 10:20] MED LIST changes: -ASPI-789 PO; +ASPI1TAB23 PO
[2021-12-08 10:33] LABS: HEMOGLOBIN 12.2 g/dL (13.3-17.7); LYMPHOCYTES # (AUTO) 2.7 10^3/uL (1.0-4.0)
[2021-12-08 10:35] LABS: BASOPHILS % (AUTO) 1 % (0-10); EOSINOPHILS # (AUTO) 0.3 10^3/uL (0.0-0.3); EOSINOPHILS % (AUTO) 3 % (0-10); HEMATOCRIT 37 % (40-54); LYMPHOCYTES % (AUTO) 35 % (12-44); MEAN CORPUSCULAR HEMOGLOBIN 27 pg (25-34); MEAN CORPUSCULAR HGB CONC 33 g/dL (32-36); MEAN CORPUSCULAR VOLUME 81 fL (80-99); MEAN PLATELET VOLUME 10.5 fL (9.0-12.2); MONOCYTES # (AUTO) 0.5 10^3/uL (0.0-1.0); MONOCYTES % (AUTO) 6 % (0-12); NEUTROPHILS # (AUTO) 4.1 10^3/uL (1.8-7.8); NEUTROPHILS % (AUTO) 55 % (42-75); PLATELET COUNT 168 10^3/uL (130-400); WHITE BLOOD COUNT 7.6 10^3/uL (4.3-11.0)
[2021-12-08 10:57] LABS: ALBUMIN 3.9 GM/DL (3.2-4.5); POTASSIUM 3.4 MMOL/L (3.6-5.0)
[2021-12-08 10:58] LABS: CALCIUM 8.5 MG/DL (8.5-10.1)
[2021-12-08 11:00] LABS: TOTAL PROTEIN 6.7 GM/DL (6.4-8.2)
[2021-12-08 11:02] LABS: BILIRUBIN,TOTAL 0.4 MG/DL (0.1-1.0)
[2021-12-08 11:03] LABS: CREATININE SERUM 1.16 MG/DL (0.60-1.30)
== END 2021-12-14 | disposition home or self-care (01) ==
LOC: ONC 10:20
PROVIDERS: ATTEND Internal Medicine Hematology & Oncology
DX: C19 Malignant neoplasm of rectosigmoid junction (principal); K52.9 Noninfective gastroenteritis and colitis, unspecified; K76.0 Fatty (change of) liver, not elsewhere classified; F32.9 Major depressive disorder, single episode, unspecified; G47.00 Insomnia, unspecified; K31.84 Gastroparesis; K21.9 Gastro-esophageal reflux disease without esophagitis; N52.9 Male erectile dysfunction, unspecified; D50.9 Iron deficiency anemia, unspecified; Z92.3 Personal history of irradiation; Z92.21 Personal history of antineoplastic chemotherapy; Z98.890 Other specified postprocedural states; Z86.16 Personal history of COVID-19; Z79.899 Other long term (current) drug therapy
CPT/HCPCS: 36415; 80053; 82378; 82728; 83540; 83550; 85025; 99213

== ENCOUNTER → 2022-03-16 | Outpatient (RCR) | payer MEDICARE, MEDICAID ==
[2022-03-16 13:11] LABS: BASOPHILS % (AUTO) 0 % (0-10); EOSINOPHILS # (AUTO) 0.3 10^3/uL (0.0-0.3); EOSINOPHILS % (AUTO) 4 % (0-10); HEMATOCRIT 40 % (40-54); HEMOGLOBIN 13.1 g/dL (13.3-17.7); LYMPHOCYTES # (AUTO) 1.6 10^3/uL (1.0-4.0); LYMPHOCYTES % (AUTO) 22 % (12-44); MEAN CORPUSCULAR HEMOGLOBIN 26 pg (25-34); MEAN CORPUSCULAR HGB CONC 33 g/dL (32-36); MEAN CORPUSCULAR VOLUME 80 fL (80-99); MEAN PLATELET VOLUME 11.3 fL (9.0-12.2); MONOCYTES # (AUTO) 0.5 10^3/uL (0.0-1.0); MONOCYTES % (AUTO) 6 % (0-12); NEUTROPHILS # (AUTO) 4.6 10^3/uL (1.8-7.8); NEUTROPHILS % (AUTO) 66 % (42-75); PLATELET COUNT 176 10^3/uL (130-400)
[2022-03-16 13:42] LABS: ALBUMIN 4.2 GM/DL (3.2-4.5); BILIRUBIN,TOTAL 0.6 MG/DL (0.1-1.0); CALCIUM 8.9 MG/DL (8.5-10.1); CREATININE SERUM 1.14 MG/DL (0.60-1.30); POTASSIUM 3.8 MMOL/L (3.6-5.0); TOTAL PROTEIN 7.4 GM/DL (6.4-8.2)
== END | disposition home or self-care (01) ==
LOC: ONC 12:34
PROVIDERS: ATTEND Internal Medicine Hematology & Oncology
DX: C19 Malignant neoplasm of rectosigmoid junction (principal); K52.9 Noninfective gastroenteritis and colitis, unspecified; K76.0 Fatty (change of) liver, not elsewhere classified; F32.9 Major depressive disorder, single episode, unspecified; G47.00 Insomnia, unspecified; K31.84 Gastroparesis; K21.9 Gastro-esophageal reflux disease without esophagitis; N52.9 Male erectile dysfunction, unspecified; D50.9 Iron deficiency anemia, unspecified; Z92.3 Personal history of irradiation; Z92.21 Personal history of antineoplastic chemotherapy; Z98.890 Other specified postprocedural states; Z86.16 Personal history of COVID-19; Z79.899 Other long term (current) drug therapy
CPT/HCPCS: 36415; 80053; 82378; 82728; 83540; 83550; 85025; 99213

== ENCOUNTER → 2022-06-06 | Outpatient (CLI) | payer MEDICARE, MEDICAID ==
[~2022-06-06] MED LIST changes: +POTA-177 PO; -POTA10TA37 PO
[2022-06-06 12:48] LABS: AMPHETAMINE SCREEN, URINE NEGATIVE (NEGATIVE); BARBITURATE SCREEN URINE NEGATIVE (NEGATIVE); BENZODIAZEPINES SCREEN URINE NEGATIVE (NEGATIVE); CANNABINOID SCREEN, URINE NEGATIVE (NEGATIVE); COCAINE SCREEN URINE NEGATIVE (NEGATIVE); METHADONE STAT NEGATIVE (NEGATIVE); OPIATE SCREEN URINE NEGATIVE (NEGATIVE); OXYCODONE STAT NEGATIVE (NEGATIVE); PROPOXYPHENE STAT NEGATIVE (NEGATIVE); TRICYCLIC ANTIDEPRESSANTS SCRE POSITIVE (NEGATIVE)
== END ==
LOC: LAB 12:15
PROVIDERS: ATTEND Emergency Medicine
DX: F11.20 Opioid dependence, uncomplicated (principal)
CPT/HCPCS: 80306

== ENCOUNTER 2022-06-15 16:47 | Inpatient (IN) | payer MEDICARE, MEDICAID ==
[~2022-06-15] VITALS: Ht 170 cm; Wt 104.7 kg
[2022-06-15 17:56] LABS: BASOPHILS % (AUTO) 0 % (0-10); EOSINOPHILS # (AUTO) 0.1 10^3/uL (0.0-0.3); EOSINOPHILS % (AUTO) 1 % (0-10); HEMATOCRIT 41 % (40-54); HEMOGLOBIN 13.5 g/dL (13.3-17.7); LYMPHOCYTES # (AUTO) 1.4 10^3/uL (1.0-4.0); LYMPHOCYTES % (AUTO) 19 % (12-44); MEAN CORPUSCULAR HEMOGLOBIN 26 pg (25-34); MEAN CORPUSCULAR HGB CONC 33 g/dL (32-36); MEAN CORPUSCULAR VOLUME 79 fL (80-99); MEAN PLATELET VOLUME 10.2 fL (9.0-12.2); MONOCYTES # (AUTO) 0.5 10^3/uL (0.0-1.0); MONOCYTES % (AUTO) 6 % (0-12); NEUTROPHILS # (AUTO) 5.4 10^3/uL (1.8-7.8); NEUTROPHILS % (AUTO) 74 % (42-75); PLATELET COUNT 216 10^3/uL (130-400); WHITE BLOOD COUNT 7.3 10^3/uL (4.3-11.0)
[2022-06-15] MEDS ORDERED: ONDANSETRON 4 MG/2 ML (SDV) Z0FRAN IVP ONE (18:00)
[2022-06-15] MEDS ORDERED: LACTATED RINGERS 1,000 ML IV SCH (18:00)
[2022-06-15] MEDS ORDERED: fentaNYL INJ 100 MCG/2 ML AMP IVP ONE (18:00)
--- NOTE | 2022-06-15 18:01 | ED Abdominal Pain ---
General Chief Complaint: Abdominal/GI Problems Stated Complaint: TROUBLE DEFECATING,ABD SWELLING Nursing Triage Note: PT AMB TO RM 7 PT CO OF ABD PAIN , N/V HAS NOT HAD BM FOR SEVERAL DAYS UP TO 14. PT ABD VERY DISTENDED. PT HAS ILLEOSTOMY ON L SIDE ABD. PT HAS RECENTLY STARTED TAKING SIBOXONE Source of Information: Patient Exam Limitations: No Limitations History of Present Illness Date Seen by Provider: Jun 15, 2022 Time Seen by Provider: 17:56 Initial Comments To ER via private vehicle with reports of constipation and abdominal swelling. He is also had nausea and vomiting. No fevers or chills. No bowel movement for 14 days. He is not passing any gas. His abdomen is very distended. He has a left-sided ileostomy. History of a simple cystectomy with ileal conduit for urinary incontinence and left ureteral stricture following radiation for his colon cancer in [address] Link. In 2012 he had resection of the rectal carcinoma here with Dr. Cook with primary anastomosis. Timing/Duration: Other (3 weeks) Severity/Quality: Moderate Location: Generalized Abdomen Radiation: No Radiation Activities at Onset: None Associated Symptoms: Nausea/Vomiting Allergies and Home Medications Allergies Coded Allergies: morphine (Verified Allergy, Intermediate, 01/01/17) codeine (Verified Adverse Reaction, Unknown, NAUSEA, 01/01/17) Patient Home Medication List Home Medication List Reviewed: Yes Amlodipine Besylate (Amlodipine Besylate) 10 Mg Tablet, 10 MG PO DAILY, (Reported) Entered as Reported by: BELA DUBON on 06/11/18 1401 Hyoscyamine Sulfate (Oscimin) 0.125 Mg Tablet, 0.25 MG SL Q4H PRN for CRAMPS Prescribed by: ABRIL KEYS on 10/12/20 1016 Ibuprofen (Ibuprofen) 200 Mg Tablet, 400-600 MG PO Q6H PRN for PAIN-MILD (1-4), (Reported) Entered as Reported by: YAIR DOMINGUEZ on 09/22/20 1051 Metoclopramide HCl (Reglan) 10 Mg Tablet, 10 MG PO ACHS Prescribed by: ABRIL KEYS on 10/12/20 1016 Ondansetron (Ondansetron Odt) 8 Mg Tab.rapdis, 8 MG PO Q6H PRN for NAUSEA-1ST LINE Prescribed by: STEVEN MCCANN on 03/25/212111 Oxycodone HCl (Oxycodone HCl ER) 20 Mg Tab.er.12h, 20 MG PO BID Prescribed by: ABRIL KEYS on 10/12/20 101 Oxycodone Hcl (Oxyir Tablet) 5 Mg Tab, 10 MG PO Q4H PRN for PAIN-SEVERE (8-10) Prescribed by: ABRIL KEYS on 10/12/20 1017 Pantoprazole Sodium (Pantoprazole Sodium) 40 Mg Tablet.dr, 40 MG PO DAILY PRN for HEARTBURN, (Reported) Entered as Reported by: YAIR DOMINGUEZ on 01/15/20821 Potassium Chloride (Potassium Chloride) 20 Meq Tablet.er, 20 MEQ PO BID Prescribed by: ABRIL KEYS on 10/12/20 1016 Pregabalin (Pregabalin) 225 Mg Capsule, 225 MG PO BID, (Reported) Entered as Reported by: AYIR DOMINGUEZ on 01/15/20821 Sertraline HCl (Sertraline HCl) 100 Mg Tablet, 100 MG PO DAILY PRN for EMOTIONS, (Reported) Entered as Reported by: BELA DUBON on 06/11/18 1401 Sulfamethoxazole/Trimethoprim (Bactrim Ds Tablet) 1 Each Tablet, 1 EACH PO BID Prescribed by: STEVEN MCCANN on 03/25/212111 Review of Systems Review of Systems Constitutional: see HPI EENTM: No Symptoms Reported Respiratory: No Symptoms Reported Cardiovascular: No Symptoms Reported Gastrointestinal: See HPI, Abdominal Pain, Constipated, Nausea, Vomiting Genitourinary: No Symptoms Reported Musculoskeletal: no symptoms reported Skin: no symptoms reported Psychiatric/Neurological: No Symptoms Reported Endocrine: No Symptoms Reported Hematologic/Lymphatic: No Symptoms Reported Past Ampzmzu-Fliafx-Heegdx Hx Patient Social History Tobacco Use?: No Substance use?: No Alcohol Use?: No Pt feels they are or have been: No Immunizations Up To Date Tetanus Booster (TDap): Unknown PED Vaccines UTD: No Influenza Vaccine Up-to-Date: No; Not Current Seasonal Allergies Seasonal Allergies: No Past Medical History Surgery/Hospitalization HX: ILLEOSTOMY AND HX KIDNEY CA, HTN, SIBOXONE Surgeries: Yes (urostomy, colonresection) Abdominal Respiratory: No Currently Using CPAP: No Currently Using BIPAP: No Cardiac: Yes High Cholesterol, Hypertension Neurological: Yes Headaches /Migraines, Neuropathy Reproductive Disorders: Yes (E.D.) Sexually Transmitted Disease: No HIV/AIDS: No Genitourinary: Yes Neurogenic Bladder, UTI-Chronic Gastrointestinal: Yes Colitis, Gastroesophageal Reflux, Chronic Constipation Musculoskeletal: No Arthritis, Chronic Back Pain Endocrine: No HEENT: No Loss of Vision: Denies Hearing Impairment: Denies Cancer: Yes Colon Did You Recieve Any Treatments: Yes What Type of Treatment Did You: Surgical Intervention Psychosocial: Yes Anxiety, Depression Integumentary: No Blood Disorders: No Adverse Reaction/Blood Tranf: No Family Medical History Cataract 03 FATHER, Onset:Unknown Chest pain 03 FATHER, Onset:50's - 60 Family history: Allergy 03 MOTHER Family history: Arthritis 03 FATHER 03 MOTHER Family history: Asthma 03 MOTHER Family history: Cardiovascular disease 03 FATHER Family history: Diabetes mellitus 03 FATHER 03 MOTHER Family history: Hypertension 03 FATHER 03 MOTHER Headache 03 FATHER 03 MOTHER Heart disease 03 FATHER History of - respiratory disease 03 MOTHER Hypercholesterolemia 03 FATHER 03 MOTHER Kidney disease 03 MOTHER Psychotic disorder 03 MOTHER Visual impairment 03 FATHER 03 MOTHER No Family History of: Abdominal aortic aneurysm Sreedhar's disease Alcoholism Aphasia Cancer Cancer of colon Congenital heart disease Congestive heart failure Cystic fibrosis Dementia Dysphagia Family history: Alzheimer's disease Family history: Breast disease Family history: Coronary thrombosis Family history: Gastrointestinal disease Family history: Glaucoma Family history: Osteoporosis Family history: Thyroid disorder Hearing loss Hereditary disease History of - anemia History of - disorder History of drug abuse Human immunodeficiency virus (HIV) seropositivity Infertile Malignant neoplasm of lung Myocardial infarction Parkinson's disease Prostate cancer Seizure disorder Stroke Tuberculosis CAD Under 55 Years Old, COPD, Diabetes, Hypertension Physical Exam Vital Signs Vital Signs - First Documented 06/15/22 17:00 Temp 36.4 Pulse 96 Resp 16 B/P (MAP) 161/108 (125) Pulse Ox 96 Capillary Refill : Less Than 3 Seconds Height/Weight/BMI Height: 5'7.00" Weight: 197lbs. 3.0oz. 89.660740ek; 35.00 BMI Method:Estimated General Appearance: WD/WN, no apparent distress HEENT: PERRL/EOMI, normal ENT inspection Neck: non-tender, full range of motion Respiratory: no respiratory distress, no accessory muscle use Cardiovascular: regular rate, rhythm, no murmur Gastrointestinal: soft, abnormal bowel sounds (hypoactive), distended Extremities: normal range of motion, non-tender Neurologic/Psychiatric: alert, normal mood/affect, oriented x 3 Skin: normal color, warm/dry Progress/Results/Core Measures Results/Orders Lab Results Laboratory Tests Test 06/15/22 17:33 Range/Units White Blood Count 7.3 4.3-11.0 10^3/uL Red Blood Count 5.22 4.30-5.52 10^6/uL Hemoglobin 13.5 13.3-17.7 g/dL Hematocrit 41 40-54 % Mean Corpuscular Volume 79 L 80-99 fL Mean Corpuscular Hemoglobin 26 25-34 pg Mean Corpuscular Hemoglobin Concent 33 32-36 g/dL Red Cell Distribution Width 15.4 H 10.0-14.5 % Platelet Count 216 130-400 10^3/uL Mean Platelet Volume 10.2 9.0-12.2 fL Immature Granulocyte % (Auto) 0 % Neutrophils (%) (Auto) 74 42-75 % Lymphocytes (%) (Auto) 19 12-44 % Monocytes (%) (Auto) 6 0-12 % Eosinophils (%) (Auto) 1 0-10 % Basophils (%) (Auto) 0 0-10 % Neutrophils # (Auto) 5.4 1.8-7.8 10^3/uL Lymphocytes # (Auto) 1.4 1.0-4.0 10^3/uL Monocytes # (Auto) 0.5 0.0-1.0 10^3/uL Eosinophils # (Auto) 0.1 0.0-0.3 10^3/uL Basophils # (Auto) 0.0 0.0-0.1 10^3/uL Immature Granulocyte # (Auto) 0.0 0.0-0.1 10^3/uL Sodium Level 130 L 135-145 MMOL/L Potassium Level 2.8 L 3.6-5.0 MMOL/L Chloride Level 97 L 98-107 MMOL/L Carbon Dioxide Level 20 L 21-32 MMOL/L Anion Gap 13 5-14 MMOL/L Blood Urea Nitrogen 22 H 7-18 MG/DL Creatinine 1.07 0.60-1.30 MG/DL Estimat Glomerular Filtration Rate 82 BUN/Creatinine Ratio 21 Glucose Level 144 H 70-105 MG/DL Calcium Level 8.7 8.5-10.1 MG/DL Corrected Calcium 8.9 8.5-10.1 MG/DL Total Bilirubin 0.7 0.1-1.0 MG/DL Aspartate Amino Transf (AST/SGOT) 48 H 5-34 U/L Alanine Aminotransferase (ALT/SGPT) 42 0-55 U/L Alkaline Phosphatase 102 40-136 U/L Total Protein 7.1 6.4-8.2 GM/DL Albumin 3.7 3.2-4.5 GM/DL Lipase 15 8-78 U/L My Orders Orders - STEVEN MCCANN WINDING INSPECTOR Cbc With Automated Diff (06/15/22 17:12) Comprehensive Metabolic Panel (06/15/22 17:12) Lipase (06/15/22 17:12) Ed Iv/Invasive Line Start (06/15/22 17:12) Ct Abdomen/Pelvis Wo (06/15/22 17:12) Chest 1 View, Ap/Pa Only (06/15/22 17:32) Fentanyl Inj (Sublimaze Injection) (06/15/22 18:00) Ondansetron Injection (Zofran Injectio (06/15/22 18:00) Lactated Ringers (Lr 1000 Ml Iv Solution (06/15/22 18:00) Na Phos/Na Biphos Enema (Fleet Enema Max (06/15/22 18:45) Medications Given in ED Current Medications Medications Dose Ordered Sig/Kenny Route Start Time Stop Time Status Last Admin Dose Admin Fentanyl Citrate 50 mcg ONCE ONCE IVP 06/15/22 18:00 06/15/22 18:01 DC 06/15/22 18:54 50 MCG Ondansetron HCl 8 mg ONCE ONCE IVP 06/15/22 18:00 06/15/22 18:01 DC 06/15/22 18:54 8 MG Vital Signs/I&O 06/15/22 17:00 Temp 36.4 Pulse 96 Resp 16 B/P (MAP) 161/108 (125) Pulse Ox 96 Blood Pressure Mean: 125 Departure Communication (Admissions) Spoke with Dr. CANNON on-call for surgery recommends enemas until clear, admit to medicine. Spoke with Dr. Renner, will consult. I will replace the potassium, enemas pain and nausea medication admit to medical. Impression Primary Impression: Colonic obstruction Additional Impression: Hypokalemia Disposition: ADMITTED INPATIENT Condition: Stable Admissions Decision to Admit Reason: Admit from ER (General) Decision to Admit/Date: Jun 15, 2022 Time/Decision to Admit Time: 19:00 Departure-Patient Inst. Referrals: LEXIS LANGFORD DO (PCP/Family) Primary Care Physician STEVEN MCCANN APRN Jun 15, 2022 18:00
[2022-06-15 18:03] LABS: ALBUMIN 3.7 GM/DL (3.2-4.5)
[2022-06-15 18:04] LABS: POTASSIUM 2.8 MMOL/L (3.6-5.0)
[2022-06-15 18:05] LABS: CALCIUM 8.7 MG/DL (8.5-10.1)
[2022-06-15 18:06] LABS: TOTAL PROTEIN 7.1 GM/DL (6.4-8.2)
--- NOTE | 2022-06-15 18:06 | Diagnostic Imaging Report ---
INDICATION: Shortness of air EXAMINATION: Chest 06/15/2022 COMPARISON: 09/21/20 FINDINGS: The lungs are clear with no effusions or infiltrates. No pneumothorax. Heart and pulmonary vasculature normal. Right central line tip in the distal SVC. IMPRESSION: 1. No acute cardiopulmonary process. Dictated by: Dictated on workstation # [id number]
[2022-06-15 18:08] LABS: BILIRUBIN,TOTAL 0.7 MG/DL (0.1-1.0)
[2022-06-15 18:10] LABS: CREATININE SERUM 1.07 MG/DL (0.60-1.30)
[2022-06-15] MEDS ORDERED: FLEET ENEMA ADULT 1 EA BTL PR ONE (18:45)
--- NOTE | 2022-06-15 18:51 | Diagnostic Imaging Report ---
EXAMINATION: CT abdomen and pelvis without contrast, 06/15/2022. TECHNIQUE: Multiple contiguous axial images were obtained through the abdomen and pelvis without the use of intravenous contrast. Auto Exposure Controls were utilized during the CT exam to meet ALARA standards for radiation dose reduction. INDICATION: Abdominal pain, nausea, and vomiting. No bowel movement for several days up to 14 days. Distention. History of ileostomy on left side. COMPARISON: 03/25/2021. FINDINGS: Scattered patchy airspace opacity is seen throughout the visualized lungs. Scattered infiltrate is suspected. Within the abdomen and pelvis, there is fatty infiltration throughout the liver. Gallbladder is unremarkable. Spleen is normal. Adrenal glands are unremarkable. Pancreas is atrophied. No acute process is seen in either kidney. Mild atrophy of the left kidney is noted. Markedly distended stool-filled large bowel is noted, especially the left colon and transverse colon. Within the pelvis, there is a suture line in the distal sigmoid region. Just proximal to the suture line, there is focal narrowing, possibly a transition point with secondary proximal obstruction. Presacral fat stranding is noted with soft tissue prominence in the region, similar to the previous examination. Adjacent postoperative changes are noted. Although the soft tissue thickening could be due to post-treatment changes, an underlying mass in the area is difficult to completely exclude although the stability does suggest a benign etiology. There are diffusely dilated fluid-filled small bowel loops throughout the abdomen into the pelvis. Findings are likely due to a distal colonic obstruction causing secondary distention of the small bowel. A small bowel obstructive process is felt to be less likely but not excluded in the right lower quadrant. No free air is appreciated. Ileostomy changes are noted in the left lower abdomen. The osseous structures appear intact. IMPRESSION: 1. Severe findings of constipation with secondary dilatation of the colon with a possible obstructive process in the distal sigmoid colon as detailed above just proximal to a suture line. 2. Persistent but stable presacral fat stranding and thickening. Findings are likely due to post-treatment change given stability. 3. Findings of likely scattered bilateral multifocal infiltrates in the visualized lungs with other findings as above. Dictated by: Dictated on workstation # [id number]
[2022-06-15 20:52] VITALS: BP 174/96
[2022-06-15] MEDS ORDERED: PROMETHAZINE INJ 25 MG/ML (PHENERGAN) AMP IVP PRN (21:45)
[2022-06-15] MEDS: NS IV 1000 ML 1,000 ML IV SCH (21:51)
[2022-06-15] MEDS: POTASSIUM CL 10MEQ/50ML IVPB 50 ML IV SCH ×2 (21:53→22:56)
[2022-06-15] MEDS ORDERED: LABETALOL HCL 20 MG/4 ML VIAL IV PRN (22:15)
[2022-06-15] MEDS ORDERED: AMIT100T2 PO (22:51)
[2022-06-15] MEDS ORDERED: BUPR8TAB SL (22:55)
[2022-06-16] VITALS (11 sets, daily range): BP systolic 111–154; BP diastolic 73–93
[2022-06-16] MEDS: POTASSIUM CL 10MEQ/50ML IVPB 50 ML IV SCH ×6 (00:05→19:30)
[2022-06-16] MEDS: NS IV 1000 ML 1,000 ML IV SCH ×3 (05:08→21:39)
[2022-06-16 05:41] LABS: BASOPHILS % (AUTO) 0 % (0-10); EOSINOPHILS # (AUTO) 0.1 10^3/uL (0.0-0.3); EOSINOPHILS % (AUTO) 1 % (0-10); HEMATOCRIT 42 % (40-54); HEMOGLOBIN 13.5 g/dL (13.3-17.7); LYMPHOCYTES # (AUTO) 1.3 10^3/uL (1.0-4.0); LYMPHOCYTES % (AUTO) 21 % (12-44); MEAN CORPUSCULAR HEMOGLOBIN 26 pg (25-34); MEAN CORPUSCULAR HGB CONC 33 g/dL (32-36); MEAN CORPUSCULAR VOLUME 81 fL (80-99); MEAN PLATELET VOLUME 10.2 fL (9.0-12.2); MONOCYTES # (AUTO) 0.5 10^3/uL (0.0-1.0); MONOCYTES % (AUTO) 7 % (0-12); NEUTROPHILS # (AUTO) 4.4 10^3/uL (1.8-7.8); NEUTROPHILS % (AUTO) 71 % (42-75); PLATELET COUNT 185 10^3/uL (130-400); WHITE BLOOD COUNT 6.3 10^3/uL (4.3-11.0)
[2022-06-16 05:57] LABS: POTASSIUM 3.2 MMOL/L (3.6-5.0)
[2022-06-16 05:58] LABS: CALCIUM 8.5 MG/DL (8.5-10.1)
[2022-06-16 06:03] LABS: CREATININE SERUM 0.94 MG/DL (0.60-1.30)
[2022-06-16] MEDS: HYDROmorphone 2 MG/ML VIAL (DILAUDID) IV PRN ×3 (10:57→20:43)
--- NOTE | 2022-06-16 11:19 | Progress Note-Pre Operative ---
Pre-Operative Progress Note Date of Available H&P: Jun 16, 2022 Date H&P Reviewed: Jun 16, 2022 Time H&P Reviewed: 11:00 History & Physical: No changes noted Pre-Operative Diagnosis: fecal impaction VIJAY CANNON MD Jun 16, 2022 11:19
[2022-06-16] MEDS ORDERED: METO50TA7 PO (11:21)
[2022-06-16] MEDS ORDERED: HYDR25TA4 PO (11:21)
[2022-06-16] MEDS ORDERED: AMLO-251 PO (11:21)
--- NOTE | 2022-06-16 12:04 | Consultation - Hospitalist ---
HPI History of Present Illness: HPI/Chief Complaint Pt is a 56yoCM with a PMH of HTN, Chronic pain, rectal cancer who presented to the Er duet abdominal pain. He states he has not had a BM for 2 weeks and has no longer been passing gas. His abdomen was becoming more and more distended as well. He has had multiple abdominal surgeries in the past for rectal carcinoma and also cystectomy and ileal conduit. CT showed possible obstructive process and severe constipation. He was admitted to surgery for further management and I am consulted for medical management. His only complaint this morning is abd pain. He denies any resultant BM or gas from his enemas. Source: patient Exam Limitations: no limitations Date Seen 06/16/22 Attending Physician Marvin Mathews DO PCP Admitting Physician: Jay Aguilar MD Attending Physician: Jay Aguilar MD Referring Physician Date of Admission Jun 15, 2022 at 19:15 Home Medications & Allergies Home Medications Reviewed patient Home Medication Reconciliation performed by pharmacy medication reconciliations coal gasification technician and/or nursing. Patients Allergies have been reviewed. Allergies Allergies Coded Allergies morphine (Verified Allergy, Intermediate, 01/01/17) codeine (Verified Adverse Reaction, Unknown, NAUSEA, 01/01/17) Past Ierzomg-Vplhwx-Bdmbrc Hx Patient Social History Tobacco Use?: No Smoking Status: Never a Smoker Use of E-Cig and/or Vaping dev: No Substance use?: No Alcohol Use?: No Pt feels they are or have been: No Immunizations Up To Date Tetanus Booster (TDap): Unknown Hepatitis A: No Hepatitis B: No PED Vaccines UTD: No Seasonal Allergies Seasonal Allergies: No Current Status Advance Directives: No Communicates: Verbally Primary Language: Djib[place]ian Preferred Spoken Language: [place]ib[place]ian Is interpretation needed?: No Implanted or Applied Medical D: Port-a-cath Past Medical History Surgeries: Abdominal Currently Using CPAP: No Currently Using BIPAP: No High Cholesterol, Hypertension Headaches /Migraines, Neuropathy Sexually Transmitted Disease: No HIV/AIDS: No Neurogenic Bladder, UTI-Chronic Colitis, Gastroesophageal Reflux, Chronic Constipation Arthritis, Chronic Back Pain Loss of Vision: Denies Hearing Impairment: Denies Colon Did You Recieve Any Treatments: Yes What Type of Treatment Did You: Surgical Intervention Anxiety, Depression Blood Disorders: No Adverse Reaction/Blood Tranf: No 1. Rectal Cancer Stage II [id number]- s/p chemotherapy and radiation stopped secondary to intolerance. Last chemo 07/16/14 2. Gastroparesis secondary #1 3. Severe Gastritis per EGD 07-30 Kido 4. Small hiatal hernia 3cm 07-30 Kido 5. Grade B reflux esophagitis 07/30 6. Recurrent episodes of nausea and vomiting secondary to #2, and #3 7. Bladder Removal 8. HTN 9. C-Diff colitis 10. Mood disorder with depression 11. Recurrent Headaches 12. Recurrent admissions for dehydration secondary and acute renal insufficiency secondary to #2, #3, #6 13. Recurrent hypokalemia and hypomagnesia secondary to other co-morbidities Past Surgical History 1. Placement of JJ stent for hydronephrosis 03-06-13 Rene 2. EGD 07-30 Kido, severe gastritis 3. Diverting loop ileostomy with colon resection 12-06-12 Joey 4. Reversal of ileostomy 04-18-13 5. Colonoscopy x2 by Dr. Aguilar 6. Nephrostomy tube placement with cystectomy 03/30 KU 7. Left Arm Fracture 04/2017 Family Medical History Reviewed Nursing Family Hx Cataract 03 FATHER, Onset:Unknown Chest pain 03 FATHER, Onset:50's - 60 Family history: Allergy 03 MOTHER Family history: Arthritis 03 FATHER 03 MOTHER Family history: Asthma 03 MOTHER Family history: Cardiovascular disease 03 FATHER Family history: Diabetes mellitus 03 FATHER 03 MOTHER Family history: Hypertension 03 FATHER 03 MOTHER Headache 03 FATHER 03 MOTHER Heart disease 03 FATHER History of - respiratory disease 03 MOTHER Hypercholesterolemia 03 FATHER 03 MOTHER Kidney disease 03 MOTHER Psychotic disorder 03 MOTHER Visual impairment 03 FATHER 03 MOTHER No Family History of: Abdominal aortic aneurysm Ringgold's disease Alcoholism Aphasia Cancer Cancer of colon Congenital heart disease Congestive heart failure Cystic fibrosis Dementia Dysphagia Family history: Alzheimer's disease Family history: Breast disease Family history: Coronary thrombosis Family history: Gastrointestinal disease Family history: Glaucoma Family history: Osteoporosis Family history: Thyroid disorder Hearing loss Hereditary disease History of - anemia History of - disorder History of drug abuse Human immunodeficiency virus (HIV) seropositivity Infertile Malignant neoplasm of lung Myocardial infarction Parkinson's disease Prostate cancer Seizure disorder Stroke Tuberculosis CAD Under 55 Years Old, COPD, Diabetes, Hypertension Review of Systems Constitutional: No chills, No fever EENTM: no symptoms reported Respiratory: no symptoms reported Cardiovascular: no symptoms reported Gastrointestinal: see HPI Genitourinary: no symptoms reported Musculoskeletal: no symptoms reported Skin: no symptoms reported Psychiatric/Neurological: No Symptoms Reported Physical Exam Physical Exam Vital Signs Vital Signs - First Documented 06/15/22 06/15/22 17:00 20:27 Temp 36.4 Pulse 96 Resp 16 B/P (MAP) 161/108 (125) Pulse Ox 96 O2 Delivery Room Air Capillary Refill : Less Than 3 Seconds Height, Weight, BMI Height: 5'7.00" Weight: 197lbs. 3.0oz. 89.032178up; 34.65 BMI Method:Estimated General Appearance: No Apparent Distress, Chronically ill, Obese HEENT: PERRL/EOMI, Moist Mucous Membranes; No Scleral Icterus (L), No Scleral Icterus (R) Neck: Normal Inspection, Supple Respiratory: Lungs Clear, No Accessory Muscle Use, No Respiratory Distress Cardiovascular: Regular Rate, Rhythm, No Murmur Gastrointestinal: Abnormal Bowel Sounds (absent), Distended; No Rebound; Tenderness Extremity: Normal Capillary Refill, No Calf Tenderness, No Pedal Edema Neurologic/Psychiatric: Alert, Oriented x3 Results Results/Procedures Labs Laboratory Tests 06/15/22 17:33 06/16/22 05:33 Patient resulted labs reviewed. Imaging: Reviewed Imaging Report Imaging [facility], [place] NAME: WAYLON MCNULTY MED REC#: [id number] PT STATUS: REG ER : 1965 PHYSICIAN: STEVEN MCCANN APRN ADMIT DATE: 06/15/22/ER Signed Date of Exam:06/15/22 CT ABDOMEN/PELVIS WO EXAMINATION: CT abdomen and pelvis without contrast, 06/15/2022. TECHNIQUE: Multiple contiguous axial images were obtained through the abdomen and pelvis without the use of intravenous contrast. Auto Exposure Controls were utilized during the CT exam to meet ALARA standards for radiation dose reduction. INDICATION: Abdominal pain, nausea, and vomiting. No bowel movement for several days up to 14 days. Distention. History of ileostomy on left side. COMPARISON: 03/25/2021. FINDINGS: Scattered patchy airspace opacity is seen throughout the visualized lungs. Scattered infiltrate is suspected. Within the abdomen and pelvis, there is fatty infiltration throughout the liver. Gallbladder is unremarkable. Spleen is normal. Adrenal glands are unremarkable. Pancreas is atrophied. No acute process is seen in either kidney. Mild atrophy of the left kidney is noted. Markedly distended stool-filled large bowel is noted, especially the left colon and transverse colon. Within the pelvis, there is a suture line in the distal sigmoid region. Just proximal to the suture line, there is focal narrowing, possibly a transition point with secondary proximal obstruction. Presacral fat stranding is noted with soft tissue prominence in the region, similar to the previous examination. Adjacent postoperative changes are noted. Although the soft tissue thickening could be due to post-treatment changes, an underlying mass in the area is difficult to completely exclude although the stability does suggest a benign etiology. There are diffusely dilated fluid-filled small bowel loops throughout the abdomen into the pelvis. Findings are likely due to a distal colonic obstruction causing secondary distention of the small bowel. A small bowel obstructive process is felt to be less likely but not excluded in the right lower quadrant. No free air is appreciated. Ileostomy changes are noted in the left lower abdomen. The osseous structures appear intact. IMPRESSION: 1. Severe findings of constipation with secondary dilatation of the colon with a possible obstructive process in the distal sigmoid colon as detailed above just proximal to a suture line. 2. Persistent but stable presacral fat stranding and thickening. Findings are likely due to post-treatment change given stability. 3. Findings of likely scattered bilateral multifocal infiltrates in the visualized lungs with other findings as above. Dictated by: Dictated on workstation # [id number] Dict: 06/15/221831 Trans: 06/15/221915 [id number] Interpreted by: EVERT GRAHAM MD Electronically signed by: EVERT GRAHAM MD 06/15/221915 Assessment/Plan Assessment and Plan Assess & Plan/Chief Complaint Colonic obstruction History of rectal cancer Management per primary Pain regimen NPO Enemas discontinued due to bleeding Likely will need surgery- defer to Dr Aguilar HTN BP elevated on arrival but improved today Trend Hypokalemia K up to 3.2 Replace Diagnosis/Problems Diagnosis/Problems (1) Colonic obstruction Status: Acute (2) Hypertension Status: Chronic (3) Hypokalemia Status: Acute AMNA LEE MD Jun 16, 2022 12:04
[2022-06-16] MEDS ORDERED: NS IV 500 ML 500 ML IV PRN (12:30)
--- NOTE | 2022-06-16 16:25 | Discharge Inst-Surgical ---
D/C Lap Instructions-KASSANDRA Follow Up Appt in 2 weeks Activity as tolerated High Fiber Diet 25g or more per day Avoid Alcohol, Caffeine, Spicy [place] and Acid foods. Drink 64 fluid oz or more of fluids per day. Symptoms to Report: Fever over 101 degree F, Nausea/Vomiting If any problems/questions: Contact your physician or go to Emergency Room VIJAY CANNON MD Jun 16, 2022 16:25
[2022-06-16] MEDS ORDERED: LIDOCAINE 1% INJ 20 ML VIAL ONE (16:26)
[2022-06-16] MEDS: LACTATED RINGERS 1,000 ML IV PRN ×3 (16:30→19:06)
[2022-06-16] MEDS ORDERED: SEVOFLURANE (ULTANE) 15 ML INHAL SOLN ONE (16:35)
[2022-06-16] MEDS ORDERED: LIDOCAINE PF 2% 5 ML (XYLOCAINE) VIAL ONE (16:35)
[2022-06-16] MEDS ORDERED: proPOfol 200 MG/20 ML (DIPRIVAN) VIAL IV ONE (16:35)
[2022-06-16] MEDS ORDERED: fentaNYL INJ 100 MCG/2 ML AMP ONE (16:36)
[2022-06-16] MEDS ORDERED: MIDAZOLAM 2 MG/2 ML (VERSED) VIAL ONE (16:36)
[2022-06-16] MEDS ORDERED: ONDANSETRON 4 MG/2 ML (SDV) Z0FRAN ONE (16:38)
--- NOTE | 2022-06-16 16:41 | HISTORY AND PHYSICAL ---
ATTENDING PRIMARY CARE PHYSICIAN: Dr. Marvin Mathews. HISTORY OF PRESENT ILLNESS: The patient is a 56-year-old male with an extensive past medical history including hypertension, chronic pain issues as well as rectal cancer. He underwent chemoradiation for the rectal cancer and then what sounds to be a low anterior colorectal resection for a stage II T3 N0 M0 rectal cancer. Since that time, he has had multiple issues including urinary incontinence, hydronephrosis as well as a number of other urologic issues. He also has had a longstanding history of chronic constipation and potential stricture in the area of the anastomosis. He presented to the emergency department with abdominal distention and crampy pain and diagnostic imaging was performed, which did show a large stool bolus within the rectum. There is also mention of a possible stricture near the staple line. PAST MEDICAL HISTORY: History of rectal cancer, gastroesophageal reflux disease, chronic constipation, chronic urinary tract infection, neurogenic bladder, degenerative joint disease, anxiety, depression. PAST SURGICAL HISTORY: Chemoradiation followed by a low anterior colorectal resection, suprapubic catheter placement, placement of bilateral ureteral stents, nephrostomy tube placement. ALLERGIES: MORPHINE, CODEINE. MEDICATIONS: Amitriptyline 100 mg daily, amlodipine 10 mg daily, buprenorphine 8 mg sublingual q.i.d., hydrochlorothiazide 25 mg daily, metoprolol 50 mg daily, pregabalin 225 mg daily, sertraline 100 mg daily. SOCIAL HISTORY: Negative smoking, negative alcohol. FAMILY HISTORY: Noncontributory. VITAL SIGNS: Temperature 36.5, blood pressure 137/87, pulse 87, respirations 20, pulse ox 93% on room air. REVIEW OF SYSTEMS: A well-nourished male, currently in no acute distress. He is not experiencing any shortness of breath or difficulty breathing. No chest pain, palpitations, diaphoresis. No nausea, vomiting with abdominal distention and crampy pain and has not had a bowel movement in what he states is around 2 weeks. No red blood per rectum, no dark tarry stools. No fever or chills. No recent inadvertent weight loss. All other review of systems negative. PHYSICAL EXAMINATION: CHEST: Clear, good breath sounds bilaterally. HEART: Regular with no murmurs. EXTREMITIES: No lower extremity edema. Negative Homans sign. HEENT: No scleral icterus. No cervical lymphadenopathy. ABDOMEN: Soft, distended with diffuse pain upon palpation. No hernias. SKIN: Warm and dry. LABORATORY DATA: WBC 6.3, hemoglobin 13.5, hematocrit 42, platelets 185. creatinine 0.94. ASSESSMENT AND PLAN: A 56-year-old male with chronic constipation with a history of rectal cancer, status post chemoradiation and low anterior colorectal resection and neurogenic bladder. He also likely has a history of an anastomotic stricture and we will proceed with anal exam under anesthesia, pudendal nerve block and fecal disimpaction on this admission. Job ID: [id number] DocumentID: [id number] Dictated Date: 06/16/2022 15:30:39 [employer] Supervisor Date: 06/16/2022 16:39:00 Dictated By: VIJAY CANNON MD MTDD
--- NOTE | 2022-06-16 17:37 | Progress Note-Post Operative ---
Post-Operative Progess Note Surgeon (s)/Spray Gun Striper (s) Surgeon VIJAY CANNON MD Spray Gun Striper: leatha simons MANAGER RESEARCH Pre-Operative Diagnosis fecal impaction Post-Operative Diagnosis same, colorectal anastomotic stricture. Procedure & Operative Findings Date of Procedure 06/16/22 Procedure Performed/Findings anal exam under anesthesia, pudendal nerve block, fecal disimpaction. dilatation anastomotic stricture. Anesthesia Type general LMA Estimated Blood Loss Estimated blood loss (mL): minimal Specimens/Packing Specimens Removed none VIJAY CANNON MD Jun 16, 2022 17:37
[2022-06-16] MEDS ORDERED: MEPERIDINE (DEMEROL) INJ 50 MG/ML IVP ONE (17:45)
[2022-06-16] MEDS ORDERED: fentaNYL INJ 100 MCG/2 ML AMP IVP ONE (17:45)
[2022-06-16] MEDS ORDERED: ONDANSETRON 4 MG/2 ML (SDV) Z0FRAN IVP PRN (17:45)
[2022-06-16] MEDS ORDERED: PROMETHAZINE INJ 25 MG/ML (PHENERGAN) AMP IVP ONE (17:45)
--- NOTE | 2022-06-16 17:45 | Progress Note-Pre Operative ---
Pre-Operative Progress Note Date of Available H&P: Jun 16, 2022 Date H&P Reviewed: Jun 16, 2022 Time H&P Reviewed: 18:00 History & Physical: No changes noted Pre-Operative Diagnosis: colorectal stricture with chronic obstruction. VIJAY CANNON MD Jun 16, 2022 17:45
--- NOTE | 2022-06-16 17:46 | Anesthesia-General Post-Op ---
General Patient Condition Mental Status/LOC: Same as Preop Cardiovascular: Satisfactory Nausea/Vomiting: Absent Respiratory: Satisfactory Pain: Controlled Complications: Absent Post Op Complications Complications None Follow Up Care/Instructions Patient Instructions None needed. Anesthesia/Patient Condition Patient Condition Patient is doing well, no complaints, stable vital signs, no apparent adverse anesthesia problems. No complications reported per nursing. JEIMY CUEVAS CRNA Jun 16, 2022 17:46
[2022-06-16] MEDS: ONDANSETRON 4 MG/2 ML (SDV) Z0FRAN IV PRN (20:47)
[2022-06-17] VITALS (13 sets, daily range): BP systolic 97–170; BP diastolic 63–107
[2022-06-17] MEDS: NS IV 1000 ML 1,000 ML IV SCH ×3 (00:53→23:03)
[2022-06-17] MEDS: HYDROmorphone 2 MG/ML VIAL (DILAUDID) IV PRN ×3 (00:58→11:40)
[2022-06-17] MEDS: ONDANSETRON 4 MG/2 ML (SDV) Z0FRAN IV PRN ×2 (02:38→11:39)
[2022-06-17] MEDS: POTASSIUM CL 10MEQ/50ML IVPB 50 ML IV SCH ×3 (06:00→10:01)
[2022-06-17] MEDS: KCL 20 MEQ TAB (K-DUR) PO SCH (06:00)
--- NOTE | 2022-06-17 06:25 | OPERATIVE REPORT ---
DATE OF SERVICE: 06/16/2022 ATTENDING PRIMARY CARE PHYSICIAN: Marvin Mathews DO PREOPERATIVE DIAGNOSIS: Fecal impaction, rule out colorectal anastomotic stricture. POSTOPERATIVE DIAGNOSIS: Stool in the rectal vault, colorectal anastomotic stricture. PROCEDURE: Anal exam under anesthesia, pudendal nerve block, disimpaction rectal vault, manual dilatation of colorectal stricture. SURGEON: Vijay Cannon MD BIOFUELS PROCESSING TECHNICIAN: Alexander Bowles APRN ANESTHESIA: General laryngeal mask airway. ESTIMATED BLOOD LOSS: Minimal. FINDINGS: Stool in the rectal vault, colorectal anastomotic stricture. DISPOSITION: The patient tolerated the procedure well. INDICATIONS: The patient is a 56-year-old male with an extensive past medical history including hypertension, chronic pain issues, neurogenic bladder and rectal cancer. He underwent chemoradiation for the rectal cancer and then what sounds to be a low anterior colorectal resection for a stage II, T3 N0 M0 rectal cancer. Since that time, he has had multiple issues including urinary incontinence, hydronephrosis as well as a number of other urologic issues. He has had a longstanding history of chronic constipation and a stricture in the area of the anastomosis. He presented to the Emergency Department with abdominal distention and crampy abdominal pain and diagnostic imaging was performed with a CT scan, which did show a large stool bolus within the rectum; however, also proximally. There also appeared to be a stricture at the colorectal anastomosis. DESCRIPTION OF PROCEDURE: The patient was brought to the operating room, laid supine on the table. After adequate IV pain and sedative medications and general laryngeal mask airway intubation, the patient was placed in lithotomy position. A 1% lidocaine was then used to proceed with a pudendal nerve block approximately 1 cm below the ischial tuberosity bilaterally. Once the anal sphincters relaxed, a self-retaining speculum was placed. There were no masses identified. There was some solid stool within the rectal vault, which was evacuated with finger disimpaction. Upon palpation of the rectum, a significant colorectal stricture was identified and we proceeded with gentle manual dilatation of the stricture. Once this was done, some liquid stools did drain out, which was suctioned out. The patient tolerated the procedure well. We feel that due to the stricture, this will be an ongoing issue and worsen over time and that he would most likely need an end colostomy and Reyes's pouch to rectify this issue long-term. We will proceed with a sigmoidoscopy to evaluate the stricture as well as the colon more proximal to the stricture and possible more decompression of the liquid stool on this admission. Job ID: [id number] DocumentID: [id number] Dictated Date: 06/16/2022 17:43:52 Supervisor [employer] Date: 06/17/2022 06:23:00 Dictated By: VIJAY CANNON MD
[2022-06-17 06:27] LABS: HEMATOCRIT 35 % (40-54); HEMOGLOBIN 11.5 g/dL (13.3-17.7); MEAN CORPUSCULAR HEMOGLOBIN 26 pg (25-34); MEAN CORPUSCULAR HGB CONC 33 g/dL (32-36); MEAN CORPUSCULAR VOLUME 79 fL (80-99); MEAN PLATELET VOLUME 10.7 fL (9.0-12.2); PLATELET COUNT 196 10^3/uL (130-400); WHITE BLOOD COUNT 8.3 10^3/uL (4.3-11.0)
[2022-06-17 06:51] LABS: POTASSIUM 3.4 MMOL/L (3.6-5.0)
[2022-06-17 06:53] LABS: CALCIUM 8.3 MG/DL (8.5-10.1)
[2022-06-17 06:57] LABS: CREATININE SERUM 0.8 MG/DL (0.60-1.30)
[2022-06-17 06:59] LABS: MAGNESIUM 1.8 MG/DL (1.6-2.4)
[2022-06-17] MEDS: MAGNESIUM 1 GM/100 ML IVPB 100 ML IV SCH (07:02)
--- NOTE | 2022-06-17 07:07 | Progress Note - Hospitalist ---
Subjective HPI/CC On Admission Date Seen by Provider: Jun 17, 2022 Pt is a 56yoCM with a PMH of HTN, Chronic pain, rectal cancer who presented to the Er duet abdominal pain. He states he has not had a BM for 2 weeks and has no longer been passing gas. His abdomen was becoming more and more distended as well. He has had multiple abdominal surgeries in the past for rectal carcinoma and also cystectomy and ileal conduit. CT showed possible obstructive process and severe constipation. He was admitted to surgery for further management and I am consulted for medical management. His only complaint this morning is abd pain. He denies any resultant BM or gas from his enemas. Subjective/Events-last exam Pt reports still having tightness in his abd and pain despite disimpaction yesterday. Planning for EGD today. Objective Exam Vital Signs Vital Signs Date Time Temp Pulse Resp B/P (MAP) Pulse Ox O2 Delivery O2 Flow Rate FiO2 06/17/22 04:15 36.1 90 18 158/97 (117) 92 Room Air 06/16/22 18:10 4.00 Capillary Refill : Less Than 3 Seconds General Appearance: No Apparent Distress, Chronically ill, Obese Cardiovascular: Regular Rate, Rhythm, No Murmur Gastrointestinal: Abnormal Bowel Sounds (quiet), Distended, Tenderness Neurologic/Psychiatric: Alert, Oriented x3 Results/Procedures Lab Laboratory Tests 06/17/22 05:37 Patient resulted labs reviewed. Imaging: Reviewed Imaging Report Assessment/Plan Assessment and Plan Assess & Plan/Chief Complaint Colonic obstruction History of rectal cancer Management per primary Pain regimen s/p EUA with fecal disimpaction Planning for EGD today HTN BP relatively well controlled Trend Hypokalemia K up to 3.4 Replace per protocol Will round prn, please call for any needs Diagnosis/Problems Diagnosis/Problems (1) Colonic obstruction Status: Acute (2) Hypertension Status: Chronic (3) Hypokalemia Status: Acute AMNA LEE MD Jun 17, 2022 07:07
[2022-06-17] MEDS ORDERED: MIDAZOLAM 2 MG/2 ML (VERSED) VIAL ONE ×3 (14:26→17:26)
[2022-06-17] MEDS ORDERED: PROPOFOL INJECTION 50 ML IV ONE (14:27)
[2022-06-17] MEDS ORDERED: LACTATED RINGERS 1,000 ML IV STA (14:28)
[2022-06-17] MEDS ORDERED: LIDOCAINE JELLY 2% 6 ML SYRINGE MM PRN (14:30)
[2022-06-17] MEDS ORDERED: LIDOCAINE JELLY 2% 6 ML SYRINGE ONE (14:34)
[2022-06-17] MEDS ORDERED: proPOfol 200 MG/20 ML (DIPRIVAN) VIAL IV ONE ×2 (15:17→17:25)
[2022-06-17] MEDS ORDERED: ROCURONIUM 10 MG/ML 5 ML SYRINGE IV ONE (15:30)
[2022-06-17] MEDS ORDERED: PROPOFOL DRIP (ICU) 100 ML IV ONE (15:59)
[2022-06-17] MEDS: PROPOFOL DRIP (ICU) 100 ML IV SCH (16:00)
--- NOTE | 2022-06-17 17:06 | Tele-ICU Consult ---
History of Present Illness History of Present Illness Date Seen by Provider: Jun 17, 2022 Time Seen by Provider: 16:49 Date of Admission eICU admit note 56 M with Hx of rectal Ca, had lower abd resection, has rectal stricture which was balloon dilated in past. Is admitted for severe constipation, no BM for 2 weeks, pt has chronic pain and taking oxycodone Today Pt went underwent attempt to disimpact, While on OR table aspirated snf was intubated promptly, fecal material came out from ETT OG drained 200 mL of what looks like fecal material Had chemotherapy and RT for rectal Ca Now to go back to OR for colostomy and Quintanilla's pouch Distension was bad enough to interfere with ventilation On vent AC 20 Vt 500 PEEP 7 FiO2 100%, SpO2 is 91 On IV propofo @ 20 THis am renal and liver function ok, Started on IV Ancef before surgery CXR looks ok but diaphragms are elevated-this was taken pre aspiration, another is pending [place] 43 AM labs showed normal renal and liver function, WBC 8.5, Hb 11 Allergies and Home Medications Allergies Coded Allergies: morphine (Verified Allergy, Intermediate, 01/01/17) codeine (Verified Adverse Reaction, Unknown, NAUSEA, 01/01/17) Home Medications Amitriptyline HCl 100 Mg Tablet, 100 MG PO HS, (Reported) Amlodipine Besylate 10 Mg Tablet, 10 MG PO DAILY, (Reported) LAST FILLED 01-24-2022 #90/90 DAY SUPPLY Buprenorphine HCl 8 Mg Tab.subl, 8 MG SL QID, (Reported) Hydrochlorothiazide 25 Mg Tablet, 25 MG PO DAILY, (Reported) LAST FILLED 04-14-2022 #30/30 DAY SUPPLY Metoprolol Succinate 50 Mg Tab.er.24h, 50 MG PO DAILY, (Reported) LAST FILLED 01-24-2022 #90/90 DAY SUPPLY Pregabalin 225 Mg Capsule, 225 MG PO BID, (Reported) Sertraline HCl 100 Mg Tablet, 100 MG PO DAILY PRN for EMOTIONS, (Reported) Past Medical/Social/Family Hx Patient Social History Tobacco Use?: No Smoking Status: Never a Smoker Use of E-Cig and/or Vaping dev: No Substance use?: No Alcohol Use?: No Pt stated abuse/neglect: No Immunizations Up To Date Influenza Vaccine Up-to-Date: No; Not Current Tetanus Booster (TDap): Unknown Hepatitis A: No Hepatitis B: No TB Skin Test: None Current Status Advance Directives: No Communicates: Verbally Primary Language: [place] Preferred Spoken Language: [place] Is interpretation needed?: No Implanted or Applied Medical D: Port-a-cath Past Medical History 1. Rectal Cancer Stage II T3N0M0- s/p chemotherapy and radiation stopped secondary to intolerance. Last chemo 07/16/14 2. Gastroparesis secondary #1 3. Severe Gastritis per EGD 07-30 Aleksandrao 4. Small hiatal hernia 3cm 07-30 Kido 5. Grade B reflux esophagitis 07/30 6. Recurrent episodes of nausea and vomiting secondary to #2, and #3 7. Bladder Removal 8. HTN 9. C-Diff colitis 10. Mood disorder with depression 11. Recurrent Headaches 12. Recurrent admissions for dehydration secondary and acute renal insufficiency secondary to #2, #3, #6 13. Recurrent hypokalemia and hypomagnesia secondary to other co-morbidities Past Surgical History 1. Placement of JJ stent for hydronephrosis 03-06-13 Rene 2. EGD 07-30 Lauren, severe gastritis 3. Diverting loop ileostomy with colon resection 12-06-12 Joey 4. Reversal of ileostomy 04-18-13 5. Colonoscopy x2 by Dr. Aguilar 6. Nephrostomy tube placement with cystectomy 03/30 [facility] 7. Left Arm Fracture 04/2017 Review of Systems Constitutional: other (sedated) Respiratory: see HPI Gastrointestinal: constipation, other (marked distension) Focused Exam Height, Weight, BMI Height: 5'7.00" Weight: 197lbs. 3.0oz. 89.517743bu; 34.65 BMI Method:Estimated Exam Exam Patient acknowledged, consented, and participated in this virtual visit which was conducted using real time audio/video Vital Signs Date Time Temp Pulse Resp B/P (MAP) Pulse Ox O2 Delivery O2 Flow Rate FiO2 06/17/22 16:04 29 20 89 100 06/17/22 12:54 36.5 86 19 145/92 (109) 92 Room Air 06/17/22 08:30 Room Air 06/17/22 08:30 36.2 88 19 152/88 (109) 92 Room Air 06/17/22 04:15 36.1 90 18 158/97 (117) 92 Room Air 06/17/22 00:13 36.7 94 18 136/71 (92) 93 Room Air 06/16/22 20:30 Room Air 06/16/22 19:25 36.4 89 17 146/88 (107) 92 Room Air 06/16/22 18:25 Room Air 06/16/22 18:20 36.1 16 136/93 (107) 93 Room Air 06/16/22 18:10 16 135/83 (100) 98 OxyMask 4.00 06/16/22 18:10 OxyMask 2.00 06/16/22 18:00 14 114/82 (93) 97 OxyMask 4.00 06/16/22 17:55 OxyMask 4.00 06/16/22 17:50 14 114/76 (89) 97 OxyMask 4.00 06/16/22 17:40 36.4 16 111/73 (86) 97 OxyMask 6.00 06/16/22 17:40 OxyMask 6.00 I & O 06/17/22 07:00 Intake Total 4100 ml Output Total 1950 ml Balance 2150 ml Height & Weight Height: 5'7.00" Weight: 197lbs. 3.0oz. 89.624122ff; 34.65 BMI Method:Estimated General Appearance: No Apparent Distress, Chronically ill, Obese HEENT: PERRL/EOMI, Moist Mucous Membranes; No Scleral Icterus (L), No Scleral Icterus (R) Neck: Normal Inspection, Supple Respiratory: Lungs Clear, No Accessory Muscle Use, No Respiratory Distress, Rhonci Cardiovascular: Regular Rate, Rhythm, No Murmur, Tachycardia Capillary Refill: Less Than 3 Seconds Gastrointestinal: soft, abnormal bowel sounds (hypoactive), distended, other (no bowel sounds, very distended) Extremity: Normal Capillary Refill, No Calf Tenderness, No Pedal Edema, Pedal Edema (+ edema), Other Neurologic/Psychiatric: Alert, Oriented x3 Results Lab Laboratory Tests 06/15/22 17:33 06/16/22 05:33 06/17/22 05:37 Assessment/Plan Assessment/Plan rectal stenosis leading to severe constipation leading to aspiration Going back to OR for colostomy and Quintanilla's pouch Would expand abx coverate to Zosyn, Flagyl, Vanco keep on vent for now, monitor BP, SpO2 Spoke to RN and Dr Aguilar at length Critical Care: Ventilator Management Time spent with patient (mins): 35 HOMER MC MD Jun 17, 2022 17:06
[2022-06-17] MEDS: LACTATED RINGERS 1,000 ML IV PRN ×3 (17:21→20:30)
[2022-06-17] MEDS ORDERED: SUCCINYLCHOLINE INJ 100 MG/5 ML SYR/VIAL INJ ONE (18:11)
[2022-06-17] MEDS ORDERED: PHENYLEPHRINE 100 MCG/ML 10 ML (ANESTHESIA) SYR ONE (18:42)
[2022-06-17] MEDS ORDERED: NS (IVPB) 100 ML ONE ×2 (18:44→19:44)
[2022-06-17] MEDS ORDERED: PHENYLEPHRINE INJ 10 MG/ML (FOR PYXIS KITS ONLY) ONE ×2 (18:45→19:45)
[2022-06-17] MEDS ORDERED: HEParin 1000 UNIT/ML (10ML VIAL) FOR BOLUS ONE (18:48)
[2022-06-17] MEDS ORDERED: NS IV 500 ML 500 ML IV PRN (19:45)
[2022-06-17] MEDS ORDERED: HEParin (CENTRAL IV FLUSH) 500 UNIT/5 ML SYR ONE (20:19)
--- NOTE | 2022-06-17 20:27 | Progress Note-Post Operative ---
Post-Operative Progess Note Surgeon (s)/Manager Deli (s) Surgeon VIJAY CANNON MD Manager Deli: leatha simons DEPUTY TREASURER Pre-Operative Diagnosis colorectal stricture with chronic obstruction. abdominal compartment syndro Post-Operative Diagnosis same Procedure & Operative Findings Date of Procedure 06/17/22 Procedure Performed/Findings exploratory laparotomy, henriquez's pouch, end colostomy, central line placement. Anesthesia Type get Estimated Blood Loss Estimated blood loss (mL): 100ml Specimens/Packing Specimens Removed none VIJAY CANNON MD Jun 17, 2022 20:27
[2022-06-17] MEDS ORDERED: PHENYLEPHRINE DRIP 250 ML IV ONE (20:57)
[2022-06-17] MEDS ORDERED: SEVOFLURANE (ULTANE) 15 ML INHAL SOLN ONE ×2 (21:02→21:03)
[2022-06-17] MEDS: PHENYLEPHRINE DRIP 250 ML IV SCH (21:03)
--- NOTE | 2022-06-17 21:12 | Diagnostic Imaging Report ---
INDICATION: OG tube placement. COMPARISON: 06/15/2022. TECHNIQUE: 2 radiographs of the chest dated 06/17/2022. FINDINGS: Endotracheal tube is now identified with the distal tip above the level the suad by approximately 4.5 cm. Right IJ central venous catheter is stable. Interval placement of a left-sided central venous catheter is noted with the distal tip overlying the cavoatrial junction. No pneumothorax. Interval placement of an enteric catheter extending the left upper abdomen, likely within the body of the stomach. Increasing perihilar and left basilar predominantly interstitial opacities. No significant pleural effusion. No pneumothorax. Osseous structures appear stable. Gas-distended loops of bowel within the upper abdomen IMPRESSION: Interval placement of an enteric catheter extending into the left upper abdomen, likely within the body of stomach. Interval placement of a left-sided central venous catheter with the distal tip overlying the cavoatrial junction without pneumothorax. Gas-distended loops of bowel within the upper abdomen. This is also noted on prior CT. Bowel obstruction not excluded. Increasing left greater than right edema versus infiltrate. Dictated by: Dictated on workstation # [id number]
[2022-06-17 21:50] LABS: ABG BASE EXCESS -9.1 MMOL/L (-2.5-2.5); ABG OXYGEN SATURATION 98 % (94-100); ABG PCO2 35 MMHG (35-45); ABG PO2 90 MMHG (79-93); ABG TCO2 17.8 MMOL/L (21.0-31.0)
[2022-06-17 21:57] LABS: ABG PH 7.28 (7.37-7.43)
[2022-06-17 21:58] LABS: ALLENS TEST YES-POS
[2022-06-17 21:59] LABS: PATIENT TEMP 35.4; VENTILATOR YES
[2022-06-17] MEDS ORDERED: FLUCONAZOLE 200 MG/100 ML 100 ML IV ONE (22:15)
[2022-06-17] MEDS ORDERED: PIPERACILLIN SODIUM/TAZOBACTAM 4.5 GM in NS (IVPB) 100 ML IV ONE (22:30)
[2022-06-18] MEDS ORDERED: fentaNYL INJ 100 MCG/2 ML AMP IVP PRN (00:15)
[2022-06-18] MEDS: fentaNYL INJ 100 MCG/2 ML AMP IVP PRN ×3 (00:41→05:48)
--- NOTE | 2022-06-18 02:05 | OPERATIVE REPORT ---
DATE OF SERVICE: 06/17/2022 ATTENDING PRIMARY CARE PHYSICIAN: Marvin Mathews DO PREOPERATIVE DIAGNOSIS: Symptomatic colorectal stricture with history of rectal cancer. POSTOPERATIVE DIAGNOSIS: Symptomatic colorectal stricture with history of rectal cancer. PROCEDURE: Sigmoidoscopy with evacuation of liquid stool and balloon dilatation. SURGEON: Vijay Cannon MD ANESTHESIA: Monitored anesthesia care. ESTIMATED BLOOD LOSS: Minimal. FINDINGS: Symptomatic colorectal stricture with history of rectal cancer. DISPOSITION: The patient tolerated the procedure well. INDICATIONS: The patient is a 56-year-old male known to us. He was diagnosed with a rectal cancer and underwent neoadjuvant chemotherapy and radiation and then eventually a low anterior colorectal resection. He then had multiple complications including a neurogenic bladder requiring suprapubic catheter placement, bilateral ureteral stents, nephrostomy tubes and eventually bilateral urostomy formation. He states he was admitted for abdominal distention and a CT scan was performed, which did show a significant amount of distended colonic stool. He underwent an anal exam under anesthesia, where he was found to have a significant stricture at the previous anastomotic line. DESCRIPTION OF PROCEDURE: The patient was brought to the endoscopy suite and laid in the left lateral decubitus position. After adequate IV pain and sedative medications and monitored anesthesia care, a digital rectal examination was performed where the stricture was again felt. The gastroscope was placed through the area of the stricture where there was a significant amount of liquid stool, which was evacuated as well as possible with suction and irrigation, were at least 800 mL of stool was evacuated. We also proceeded with balloon dilatation of the stricture to approximately 19 mm in luminal diameter. We did this in a stepwise fashion for approximately 5 atmospheres of pressure. We felt moderate resistance and left this in place for approximately 60 seconds. The balloon was then desufflated with visualization with good hemostasis as well as no mucosal tears. The endoscope was then slowly withdrawn to take a second look and suctioned of residual air with no additional findings. The patient tolerated the procedure well. We will await to see if he does have a significant bowel function, but it was explained to the patient that he will likely need to have an end colostomy or Reyes's pouch due to the extremely tight stricture at some point. Job ID: [id number] DocumentID: [id number] Dictated Date: 06/17/2022 15:18:36 Head Counselor Date: 06/18/2022 02:04:00 Dictated By: VIJAY CANNON MD
[2022-06-18] MEDS: inSUlin ASPART (NovoLOG) 1 UNIT/0.01 ML (CHARGE PER UNIT) SC SCH ×4 (02:21→18:49)
[2022-06-18 02:38] VITALS: BP 103/73
[2022-06-18] MEDS: PROPOFOL DRIP (ICU) 100 ML IV SCH ×7 (03:15→20:39)
[2022-06-18 03:16] LABS: BASOPHILS % (AUTO) 0 % (0-10); EOSINOPHILS % (AUTO) 0 % (0-10); HEMATOCRIT 39 % (40-54); HEMOGLOBIN 12.5 g/dL (13.3-17.7); LYMPHOCYTES # (AUTO) 0.7 10^3/uL (1.0-4.0); LYMPHOCYTES % (AUTO) 10 % (12-44); MEAN CORPUSCULAR HEMOGLOBIN 26 pg (25-34); MEAN CORPUSCULAR HGB CONC 32 g/dL (32-36); MEAN CORPUSCULAR VOLUME 81 fL (80-99); MEAN PLATELET VOLUME 10.5 fL (9.0-12.2); MONOCYTES # (AUTO) 0.3 10^3/uL (0.0-1.0); MONOCYTES % (AUTO) 4 % (0-12); NEUTROPHILS # (AUTO) 5.7 10^3/uL (1.8-7.8); NEUTROPHILS % (AUTO) 85 % (42-75); PLATELET COUNT 344 10^3/uL (130-400); WHITE BLOOD COUNT 6.7 10^3/uL (4.3-11.0)
[2022-06-18 03:19] LABS: SMEAR SCAN COMMENT YES
[2022-06-18 03:26] LABS: ABG BASE EXCESS -9.6 MMOL/L (-2.5-2.5); ABG OXYGEN SATURATION 100 % (94-100); ABG PCO2 27 MMHG (35-45); ABG PH 7.36 (7.37-7.43); ABG PO2 191 MMHG (79-93); ABG TCO2 15.5 MMOL/L (21.0-31.0)
[2022-06-18 03:29] LABS: ALLENS TEST YES-POS
[2022-06-18 03:30] LABS: PATIENT TEMP 37.3; VENTILATOR YES
[2022-06-18 03:37] LABS: ALBUMIN 2.6 GM/DL (3.2-4.5); BILIRUBIN,TOTAL 1.3 MG/DL (0.1-1.0); CALCIUM 7.8 MG/DL (8.5-10.1); CREATININE SERUM 1.12 MG/DL (0.60-1.30); MAGNESIUM 1.5 MG/DL (1.6-2.4); PHOSPHORUS 3.9 MG/DL (2.3-4.7); POTASSIUM 3.8 MMOL/L (3.6-5.0)
[2022-06-18] MEDS: PIPERACILLIN SODIUM/TAZOBACTAM 4.5 GM in NS (IVPB) 100 ML IV SCH ×3 (05:47→20:40)
[2022-06-18] MEDS: MAGNESIUM 1 GM/100 ML IVPB 100 ML IV SCH ×4 (06:05→06:35)
[2022-06-18] MEDS: POTASSIUM CL 10MEQ/50ML IVPB 50 ML IV SCH ×2 (06:05→06:06)
[2022-06-18] MEDS: KCL 20 MEQ TAB (K-DUR) PO SCH ×2 (06:08)
--- NOTE | 2022-06-18 06:10 | Tele-ICU Progress Note ---
Progress Note Over the past 1-2 hours patient has developed clothing drenching diaphoresis. Otherwise without clinical signs. Endorsed pain and was given fentanyl. Labs sent and unremarkable. Troponin negative. Temp improved from 35 to 37. After that, waited an hour to see if that was on an upward trajectory, but did not spike a fever. Now becoming hypotensive at 88/60, tachy at 115. Suspect hypotension is related to hypovolemia secondary to insensible losses, will give 1L bolus. Diaphoresis suspected to be medication related given otherwise normal values. Potential for serotonin syndrome after intraop sevoflorane, post op propofol and fentanyl, and baseline home sertraline. Or could be withdrawal syndrome from home amitryptiline, buprenorhine, pregabalin and/or sertraline. Giving trial versed 2 mg IV now and re-evaluate diaphoresis and tachycardia. Stop propofol, start precedex. Avoid fentanyl for now. Current BP will not tolerate morphine or dilaudid but anticipate improvement after fluids. Will need clearance from surgery before restarting any PO meds. Focused Exam Lactate Level 06/18/22 00:55: Lactic Acid Level 2.79*H 06/18/22 02:59: Lactic Acid Level 2.81*H 06/18/22 05:50: Height, Weight, BMI Height: 5'7.00" Weight: 197lbs. 3.0oz. 89.411961fx; 34.65 BMI Method:Estimated Lactic Acid Level Laboratory Tests Test 06/18/22 02:59 06/18/22 05:50 Lactic Acid Level 2.81 MMOL/L (0.50-2.00) *H LARISSA SCHUSTER MD Jun 18, 2022 06:10
[2022-06-18] MEDS ORDERED: DexMEDEtomidine 250 ML DRIP 250 ML IV SCH (06:15)
[2022-06-18] MEDS ORDERED: LACTATED RINGERS 1,000 ML IV SCH (06:15)
[2022-06-18] MEDS ORDERED: MIDAZOLAM 2 MG/2 ML (VERSED) VIAL IVP ONE (06:15)
[2022-06-18] MEDS: PHENYLEPHRINE DRIP 250 ML IV SCH ×3 (06:26→23:49)
[2022-06-18] MEDS: NS IV 1000 ML 1,000 ML IV SCH ×2 (06:34→09:07)
--- NOTE | 2022-06-18 07:27 | Diagnostic Imaging Report ---
INDICATION: OG tube placement. EXAMINATION: Chest 06/17/2022 COMPARISON: 06/17/2022 at 8:52 PM FINDINGS: ET tube stable. There is an enteric tube coursing beneath the diaphragm. A left central line tip in the distal SVC with the right central line also in the SVC. Heart is stable. Pulmonary vasculature is minimally congested. There are linear areas of atelectasis at the bases with increasing density in the right lung base possibly early infiltrate. No pneumothorax. IMPRESSION: 1. Tubes and lines as above with OG tube tip in the left upper quadrant. 2. Bibasal atelectasis with early infiltrate on the right not excluded continued follow-up recommended. Dictated by: Dictated on workstation # [id number]
[2022-06-18 07:42] VITALS: BP 108/63
[2022-06-18] MEDS ORDERED: PROPOFOL DRIP (ICU) 100 ML IV ONE (07:47)
--- NOTE | 2022-06-18 08:24 | OPERATIVE REPORT ---
DATE OF SERVICE: 06/17/2022 ATTENDING PRIMARY CARE PHYSICIAN: Marvin Mathews DO PREOPERATIVE DIAGNOSES: Abdominal compartment syndrome, chronic distal colonic obstruction secondary to colorectal stricture. POSTOPERATIVE DIAGNOSES: Abdominal compartment syndrome, chronic distal colonic obstruction secondary to colorectal stricture. PROCEDURES: Exploratory laparotomy, lysis of adhesions, Reyes's pouch creation, end-colostomy, placement left subclavian central venous catheter. SURGEON: Jay Aguilar MD METAL SPRAYER PROTECTIVE COATING: Alexander Bowles APRN ANESTHESIA: General endotracheal. ESTIMATED BLOOD LOSS: 100 mL. FINDINGS: Severely distended small bowel and colon. No perforation. DISPOSITION: The patient tolerated the procedure well. INDICATIONS: The patient is a 56-year-old male with an extensive past medical history including hypertension, chronic pain issues, neurogenic bladder and rectal cancer. He underwent chemoradiation for rectal cancer and what sounds to be a low anterior colorectal resection for stage II, T3 N0 M0 rectal cancer. Since that time, he has had multiple issues including urinary incontinence, hydronephrosis as well as a number of other urologic issues. He has a longstanding history of chronic constipation and a stricture in the area of the anastomosis as well. He presented to the emergency department with abdominal distention and crampy abdominal pain and diagnostic imaging was performed with a CT scan, which did show a significant amount of stool and liquid within the colon and rectum and there also appeared to be a transition point where the previous stricture was identified. The patient underwent an anal exam under anesthesia and was again found to have severe colorectal anastomotic stricture. He underwent the anal exam under anesthesia after pudendal nerve block and digital disimpaction of the rectal wall. He then underwent a sigmoidoscopy today in hopes of further decompressing his abdomen. However, he developed increased abdominal distention, likely from the air insufflation and abdominal compartment syndrome requiring intubation. Due to the obstruction and compartment syndrome, he will need an exploratory laparotomy. DESCRIPTION OF PROCEDURE: The patient was brought to the operating room, laid supine on the table. After adequate IV pain and sedative medications and general endotracheal intubation, the neck and chest were prepped and draped in standard surgical fashion. The left subclavian vein was then cannulated withdrawing of venous blood and a guidewire was then inserted without any resistance and the cannulating needle removed. A skin incision was made using an 11 blade. A tract was then created through the abdominal wall layers using a venous dilator and through this opening, a triple lumen central venous catheter was placed over the guidewire using the Seldinger technique. All 3 ports talat venous blood and saline flushed without any resistance. The catheter was then sutured to the skin using 3-0 silk interrupted sutures. The catheter was then cleaned and covered with Op-Site. The abdomen was then prepped and draped in standard surgical fashion. We proceeded with a midline laparotomy incision along the same previous scar using a 10 blade. The subcutaneous tissue was then dissected using electrocautery. The fascia was then identified and then opened using cautery. The peritoneal lining was then opened and the remainder of the fascia and peritoneum were then opened to the length of the skin incision under direct visualization using electrocautery. A four quadrant abdominal exploration was performed. There was a significantly distended colon and small bowel. There was no perforation identified. We then proceeded with dissection of the lysis of adhesions from his previous surgeries including a low anterior resection as well as a urostomy formation. This took greater than 90 minutes. Once we were able to free the area of the colorectal anastomosis in the pelvis, we were able to place a green load TA stapler at the level of the rectum at the level of the stricture and the stapler was fired with visualization with good hemostasis. We then proceeded with mobilization of the sigmoid colon taking the white lines of Toldt as well as opening the mesentery to provide enough length to proceed with placement of a colostomy on the right side. Before this, we then proceeded with decompression of the entirety of the small bowel and colon using multiple suctions and milking the succuss entericus from the small bowel as well as stool from the colon until both the small bowel and colon were significantly decompressed. Good hemostasis was observed. The open end was then stapled and transected using a ADRIANA-75 mm blue load stapler. Our ostomy site was then created on the right lateral abdomen, contralateral to his urostomy site using electrocautery. The subcutaneous tissue and fascia were then opened vertically using electrocautery. The peritoneal lining was opened similarly and the sigmoid colon was pulled through and sutured to the skin using interrupted 3-0 silk sutures. We then proceeded to place two 19-Hungarian Laci-Figueroa drains, along both paracolic gutters as well as into the pelvis. Before this, 4-6 liters of warm saline were irrigated and suctioned out. The drains were then sutured to the skin using 3-0 nylon sutures. The fascia was then closed using #1 looped PDS suture starting superiorly and inferiorly and tied in the middle. The skin was then loosely approximated using skin gaurav. This wound was then covered. We then proceeded with maturation of the end colostomy by opening the staple line using Metzenbaum scissors and imbricating the mucosa with interrupted 0 Vicryl sutures. There was good bleeding at the edges and the mucosa appeared pink and viable. A colostomy appliance was then placed. The patient tolerated the procedure well. We will admit him back to the ICU and keep him on the ventilator overnight and allow eICU to proceed with ventilatory management and extubation. We will continue with NG tube decompression for now. Once he does have bowel function, then we will start clear liquids and advance as tolerated. Job ID: [id number] DocumentID: [id number] Dictated Date: 06/17/2022 20:40:05 Comfort Station Supervisor Date: 06/18/2022 08:22:00 Dictated By: JAY AGUILAR MD
--- NOTE | 2022-06-18 08:55 | OPERATIVE REPORT ---
DATE OF SERVICE: 06/17/2022 ATTENDING PRIMARY CARE PHYSICIAN: Marvin Mathews DO PREOPERATIVE DIAGNOSES: Near obstructing distal colorectal anastomosis, status post a low anterior colorectal resection. POSTOPERATIVE DIAGNOSIS: Near obstructing distal colorectal anastomosis, status post a low anterior colorectal resection with abdominal compartment syndrome. PROCEDURE: Sigmoidoscopy with balloon dilatation and evacuation of liquid stools. SURGEON: Vijay Cannon MD ANESTHESIA: Monitored anesthesia care. ESTIMATED BLOOD LOSS: Minimal. FINDINGS: Near obstructing distal colorectal anastomosis, status post low anterior colorectal resection with abdominal compartment syndrome. DISPOSITION: The patient tolerated the procedure well. INDICATIONS: The patient is a 56-year-old male known to us. He had a history of rectal cancer requiring neoadjuvant chemoradiation and eventual low anterior colorectal resection. He developed a number of different issues likely secondary to the radiation including a neurogenic bladder as well as ureteral dysmotility requiring ureteral stent placement, suprapubic catheter placement and eventually a urostomy formation. He has a known colorectal stricture as well identified on colonoscopy that was done a few years ago, which was dilated. Since that time, we have not seen him and the family states that he has had significant abdominal distention and crampy pain for quite some time now. He presented with abdominal pain and distention and a CT scan was performed, which did show significantly dilated colon as well as some small bowel. He underwent an anal exam under anesthesia and there was only a small amount of solid stool within the rectal vault and the stricture was palpable and very tight and I was unable to advance my index finger past the stricture. Our intention was to then proceed with a sigmoidoscopy, balloon dilatation as well as evacuation as much liquid stools as well as gas to help with decompression of the gastrointestinal tract and abdomen. DESCRIPTION OF PROCEDURE: The patient was brought to the endoscopy suite and laid in the left lateral decubitus position. After adequate IV pain, sedative medications and monitored anesthesia care, a digital rectal examination was performed. Once again, the stricture was identified. A gastroscope was then placed into the anus and the rectum was gently insufflated. The endoscope was able to advance past the stricture where there was a domenica dilated colon with a large amount of air as well as liquid stools. This was irrigated and suctioned as well as possible. The endoscope was then advanced through the descending colon to around the splenic flexure where again a domenica dilated colon was identified as well as significant amounts of stools. We evacuated as much air and stool as possible. However, during this process, there was some insufflation and this insufflation may have caused a small bowel dilatation due to incompetent ileocecal valve because his abdominal distention worsened and his abdomen was extremely distended and tight. The abdomen was so tight. This was consistent with an abdominal compartment syndrome. Anesthesia had difficulty ventilating the patient and the patient was intubated in the endoscopy suite and transferred to the ICU. It was decided to take the patient to the operating room for an exploratory laparotomy as well as creation of a Reyes's pouch distal to the stricture and placement of end-colostomy to rectify the near obstruction of the distal colon. Before this was done, an attempt was made to dilate the stricture and we were only able to get to approximately 19 mm in luminal diameter with significant resistance and left this in place for approximately 60 seconds. The balloon was then desufflated and removed with visualization of good hemostasis as well as no mucosal tears. We will consult eICU and then immediately take him to the operating room for the exploratory laparotomy. Job ID: [id number] DocumentID: [id number] Dictated Date: 06/18/2022 00:22:49 Telecommunications Network Engineer Date: 06/18/2022 08:53:00 Dictated By: VIJAY CANNON MD
--- NOTE | 2022-06-18 08:57 | Tele-ICU Progress Note ---
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 3.0oz. [id number]; 34.65 BMI Method:Estimated Focused Exam Lactate Level 06/18/22 02:59: Lactic Acid Level 2.81*H 06/18/22 05:50: Lactic Acid Level 3.28*H 06/18/22 07:55: Lactic Acid Level 2.84*H Lactic Acid Level Laboratory Tests Test 06/18/22 05:50 06/18/22 07:55 Lactic Acid Level 3.28 MMOL/L (0.50-2.00) *H 2.84 MMOL/L (0.50-2.00) *H Exam Exam Patient acknowledged, consented, and participated in this virtual visit which was conducted using real time audio/video Vital Signs Date Time Temp Pulse Resp B/P (MAP) Pulse Ox O2 Delivery O2 Flow Rate FiO2 06/18/22 08:00 37.3 101 25 116/78 (91) 100 Mechanical Ventilator 60.00 111/64 (80) 06/18/22 08:00 100 Mechanical Ventilator 60 06/18/22 07:42 100 24 100 70 06/18/22 07:15 101 114/71 06/18/22 07:00 36.9 103 23 118/73 (88) 100 Mechanical Ventilator 60.00 102/63 (76) 06/18/22 07:00 99 06/18/22 06:26 116 96/64 06/18/22 06:00 37.1 116 25 104/71 (82) 100 Mechanical Ventilator 60.00 95/63 (74) 06/18/22 05:00 37.0 118 35 125/76 (92) 100 Mechanical Ventilator 60.00 106/69 (81) 06/18/22 04:00 100 Mechanical Ventilator 60 06/18/22 04:00 37.3 114 24 112/74 (87) 100 Mechanical Ventilator 60.00 118/74 (89) 06/18/22 03:00 37.6 112 23 120/85 (97) 100 Mechanical Ventilator 60.00 116/73 (87) 06/18/22 02:38 114 24 100 70 06/18/22 02:00 37.6 113 29 127/90 (102) 100 Mechanical Ventilator 60.00 118/77 (91) 06/18/22 01:00 37.6 111 27 124/84 (97) 100 Mechanical Ventilator 60.00 118/78 (91) 06/18/22 01:00 108 06/18/22 00:00 36.9 Mechanical Ventilator 100.00 06/18/22 00:00 36.7 104 27 119/84 (96) 100 Mechanical Ventilator 60.00 103/78 (86) 06/17/22 23:59 100 Mechanical Ventilator 100 06/17/22 22:45 35.9 99 28 108/80 (89) 100 Mechanical Ventilator 100.00 97/70 (79) 06/17/22 22:35 98 28 100 100 06/17/22 22:22 98 106/72 06/17/22 22:15 98 28 90/74 (79) 100 Mechanical Ventilator 100.00 100/74 (83) 06/17/22 22:11 97 91/67 06/17/22 21:45 98 20 100/74 (83) 100 Mechanical Ventilator 100.00 121/79 (93) 06/17/22 21:40 Mechanical Ventilator 06/17/22 21:40 35.9 20 111/77 (88) 100 Mechanical Ventilator 06/17/22 21:30 96 20 111/77 (88) 100 Mechanical Ventilator 100.00 130/75 (93) 06/17/22 21:30 19 110/77 (88) 100 Mechanical Ventilator 06/17/22 21:25 Mechanical Ventilator 06/17/22 21:20 20 101/71 (81) 99 Mechanical Ventilator 06/17/22 21:15 93 19 101/71 (81) 98 Mechanical Ventilator 100.00 116/68 (84) 06/17/22 21:10 Mechanical Ventilator 06/17/22 21:10 19 97/77 (84) 98 Mechanical Ventilator 06/17/22 21:03 108 120/63 06/17/22 21:00 100 Mechanical Ventilator 100 06/17/22 21:00 89 20 97/72 (80) 100 Mechanical Ventilator 100.00 123/77 (92) 06/17/22 21:00 20 97/72 (80) 99 Mechanical Ventilator 06/17/22 20:56 90 06/17/22 20:55 20 117/74 (88) 100 Mechanical Ventilator 06/17/22 20:50 Mechanical Ventilator 06/17/22 20:50 36.0 20 110/63 (79) 100 Mechanical Ventilator 06/17/22 16:04 29 20 89 100 06/17/22 16:00 125 19 143/90 (107) 90 Mechanical Ventilator 100.00 06/17/22 16:00 126 159/90 06/17/22 12:54 36.5 86 19 145/92 (109) 92 Room Air I & O 06/18/22 07:00 Intake Total 4550 ml Output Total 2048 ml Balance 2502 ml Height & Weight Height: 5'7.00" Weight: 197lbs. 3.0oz. 89.016367re; 34.65 BMI Method:Estimated General Appearance: No Apparent Distress, Chronically ill, Obese HEENT: PERRL/EOMI, Moist Mucous Membranes Neck: Normal Inspection, Supple Respiratory: Lungs Clear, No Accessory Muscle Use, No Respiratory Distress, Rhonci Cardiovascular: Regular Rate, Rhythm, No Murmur, Tachycardia Capillary Refill: Less Than 3 Seconds Gastrointestinal: soft, abnormal bowel sounds, distended, other (stomach much less distended but minimal bowel sounds) Extremity: Normal Capillary Refill, No Calf Tenderness, No Pedal Edema, Pedal Edema (+ 1 edema in hands and legs), Other Neurologic/Psychiatric: Alert, Oriented x3 Results Lab Laboratory Tests 06/17/22 05:37 06/18/22 02:59 Assessment/Plan Assessment/Plan Colon stenosis, now relevieved with much better ventilation will try on SBT tomorrow, continue present abx Critical Care: Ventilator Management Time spent with patient (mins): 30 HOMER MC MD Jun 18, 2022 08:57
--- NOTE | 2022-06-18 09:12 | Progress Note - Hospitalist ---
Subjective HPI/CC On Admission Date Seen by Provider: Jun 18, 2022 Pt is a 56yoCM with a PMH of HTN, Chronic pain, rectal cancer who presented to the [facility] duet abdominal pain. He states he has not had a BM for 2 weeks and has no longer been passing gas. His abdomen was becoming more and more distended as well. He has had multiple abdominal surgeries in the past for rectal carcinoma and also cystectomy and ileal conduit. CT showed possible obstructive process and severe constipation. He was admitted to surgery for further management and I am consulted for medical management. His only complaint this morning is abd pain. He denies any resultant BM or gas from his enemas. Subjective/Events-last exam Reviewed events and operative notes from yesterday. Currently on vent. Afebrile. Not diaphoretic at this time. RN reports no new concerns or needs this AM. No family at bedside. Focused Exam Lactate Level 06/18/22 02:59: Lactic Acid Level 2.81*H 06/18/22 05:50: Lactic Acid Level 3.28*H 06/18/22 07:55: Lactic Acid Level 2.84*H Lactic Acid Level Laboratory Tests Test 06/18/22 05:50 06/18/22 07:55 Lactic Acid Level 3.28 MMOL/L (0.50-2.00) *H 2.84 MMOL/L (0.50-2.00) *H Objective Exam Vital Signs Vital Signs Date Time Temp Pulse Resp B/P (MAP) Pulse Ox O2 Delivery O2 Flow Rate FiO2 06/18/22 08:00 37.3 101 25 116/78 (91) 100 Mechanical Ventilator 60.00 111/64 (80) 06/18/22 08:00 60 Capillary Refill : Less Than 3 Seconds General Appearance: Other (sedated on vent) Respiratory: Crackles (bases), Decreased Breath Sounds; No Rhonci, No Wheezing Cardiovascular: Regular Rate, Rhythm, No Murmur Gastrointestinal: Soft, Abnormal Bowel Sounds (quiet), Other (abd softer today, JOSEF drain in place, ostomy created) Genital/Rectal: Other (barriga) Neurologic/Psychiatric: Other (sedated, appears comfortable) Results/Procedures Lab Laboratory Tests 06/18/22 02:59 Patient resulted labs reviewed. Imaging: Reviewed Imaging Report Assessment/Plan Assessment and Plan Assess & Plan/Chief Complaint Colorectal stricture with obstruction Abdominal compartment syndrome History of rectal cancer Postoperative respiratory insufficiency Shock Likely aspiration Management per primary S/p ex lap with henriquez's pouch, end colostomy on 06/17 TeleICU consulted for ventmanagement planning sedation vacation per note On phenylephrine for BP support HTN Now hypotension On pressors Hypokalemia- resolved Critical Care Ventilator Management Diagnosis/Problems Diagnosis/Problems (1) Colonic obstruction Status: Acute (2) Hypertension Status: Chronic (3) Hypokalemia Status: Acute AMNA LEE MD Jun 18, 2022 9:12 am
[2022-06-18 10:13] VITALS: BP 132/74
[2022-06-18] MEDS: HYDROmorphone 2 MG/ML VIAL (DILAUDID) IV PRN ×2 (11:42→16:17)
--- NOTE | 2022-06-18 11:51 | Progress Note ---
Subjective Date Seen by a Provider: Jun 18, 2022 Time Seen by a Provider: 11:40 Subjective/Events-last exam Patient seen with Dr. Aguilar. Patient lying in bed sedated on vent. Family at bedside. On phenylephrine drip for BP. Focused Exam Lactate Level 06/18/22 05:50: Lactic Acid Level 3.28*H 06/18/22 07:55: Lactic Acid Level 2.84*H 06/18/22 09:50: Lactic Acid Level 2.93*H Lactic Acid Level Laboratory Tests Test 06/18/22 07:55 06/18/22 09:50 Lactic Acid Level 2.84 MMOL/L (0.50-2.00) *H 2.93 MMOL/L (0.50-2.00) *H Objective Exam Vital Signs Date Time Temp Pulse Resp B/P (MAP) Pulse Ox O2 Delivery O2 Flow Rate FiO2 06/18/22 11:00 37.0 101 26 105/76 (86) Mechanical Ventilator 45.00 107/65 (79) 06/18/22 10:13 98 28 70 06/18/22 10:00 36.9 98 26 107/80 (89) Mechanical Ventilator 45.00 97/59 (72) 06/18/22 09:06 99 118/67 06/18/22 09:06 99 118/67 06/18/22 09:00 36.3 101 26 108/67 (81) Mechanical Ventilator 45.00 06/18/22 09:00 36.5 101 25 106/74 (85) 100 Mechanical Ventilator 60.00 112/64 (80) 06/18/22 08:00 37.3 101 25 116/78 (91) 100 Mechanical Ventilator 60.00 111/64 (80) 06/18/22 08:00 100 Mechanical Ventilator 60 06/18/22 07:42 100 24 100 70 06/18/22 07:15 101 114/71 06/18/22 07:00 36.9 103 23 118/73 (88) 100 Mechanical Ventilator 60.00 102/63 (76) 06/18/22 07:00 99 06/18/22 06:26 116 96/64 06/18/22 06:00 37.1 116 25 104/71 (82) 100 Mechanical Ventilator 60.00 95/63 (74) 06/18/22 05:00 37.0 118 35 125/76 (92) 100 Mechanical Ventilator 60.00 106/69 (81) 06/18/22 04:00 100 Mechanical Ventilator 60 06/18/22 04:00 37.3 114 24 112/74 (87) 100 Mechanical Ventilator 60.00 118/74 (89) 06/18/22 03:00 37.6 112 23 120/85 (97) 100 Mechanical Ventilator 60.00 116/73 (87) 06/18/22 02:38 114 24 100 70 06/18/22 02:00 37.6 113 29 127/90 (102) 100 Mechanical Ventilator 60.00 118/77 (91) 06/18/22 01:00 37.6 111 27 124/84 (97) 100 Mechanical Ventilator 60.00 118/78 (91) 06/18/22 01:00 108 06/18/22 00:00 36.9 Mechanical Ventilator 100.00 06/18/22 00:00 36.7 104 27 119/84 (96) 100 Mechanical Ventilator 60.00 103/78 (86) 06/17/22 23:59 100 Mechanical Ventilator 100 06/17/22 22:45 35.9 99 28 108/80 (89) 100 Mechanical Ventilator 100.00 97/70 (79) 06/17/22 22:35 98 28 100 100 06/17/22 22:22 98 106/72 06/17/22 22:15 98 28 90/74 (79) 100 Mechanical Ventilator 100.00 100/74 (83) 06/17/22 22:11 97 91/67 06/17/22 21:45 98 20 100/74 (83) 100 Mechanical Ventilator 100.00 121/79 (93) 06/17/22 21:40 Mechanical Ventilator 06/17/22 21:40 35.9 20 111/77 (88) 100 Mechanical Ventilator 06/17/22 21:30 96 20 111/77 (88) 100 Mechanical Ventilator 100.00 130/75 (93) 06/17/22 21:30 19 110/77 (88) 100 Mechanical Ventilator 06/17/22 21:25 Mechanical Ventilator 06/17/22 21:20 20 101/71 (81) 99 Mechanical Ventilator 06/17/22 21:15 93 19 101/71 (81) 98 Mechanical Ventilator 100.00 116/68 (84) 06/17/22 21:10 Mechanical Ventilator 06/17/22 21:10 19 97/77 (84) 98 Mechanical Ventilator 06/17/22 21:03 108 120/63 06/17/22 21:00 100 Mechanical Ventilator 100 06/17/22 21:00 89 20 97/72 (80) 100 Mechanical Ventilator 100.00 123/77 (92) 06/17/22 21:00 20 97/72 (80) 99 Mechanical Ventilator 06/17/22 20:56 90 06/17/22 20:55 20 117/74 (88) 100 Mechanical Ventilator 06/17/22 20:50 Mechanical Ventilator 06/17/22 20:50 36.0 20 110/63 (79) 100 Mechanical Ventilator 06/17/22 16:04 29 20 89 100 06/17/22 16:00 125 19 143/90 (107) 90 Mechanical Ventilator 100.00 06/17/22 16:00 126 159/90 06/17/22 12:54 36.5 86 19 145/92 (109) 92 Room Air I & O 06/18/22 06:59 Intake Total 4550 ml Output Total 2048 ml Balance 2502 ml Capillary Refill : Less Than 3 Seconds General Appearance: No Apparent Distress, WD/WN Respiratory: Other (On vent) Cardiovascular: Regular Rate, Rhythm, No Murmur Gastrointestinal: normal bowel sounds, soft, distended, other (2 abdominal JOSEF drains with SS drainge. Right colostomy functioning. Midline incision with dressing in place with minimal SS drainage on dressing. left urostomy functioning.) Neurologic/Psychiatric: Other (Sedated on vent) Skin: Normal Color, Cool Results Lab Laboratory Tests 06/17/22 16:48: Glucometer 171H 06/17/22 21:18: Lactic Acid Level 2.12*H 06/17/22 21:45: Blood Gas Puncture Site LEFT ARTLINE, Blood Gas Patient Temperature 35.4, Arterial Blood pH 7.28*L, Arterial Blood Partial Pressure CO2 35, Arterial Blood Partial Pressure O2 90, Arterial Blood HCO3 17*L, Arterial Blood Total CO2 17.8L , Arterial Blood Oxygen Saturation 98, Arterial Blood Base Excess -9.1L, El Test YES-POS, Blood Gas Ventilator Setting YES, Blood Gas Inspired Oxygen NA 06/17/22 23:12: Lactic Acid Level 2.80*H 06/17/22 23:54: Glucometer 108 06/18/22 00:55: Lactic Acid Level 2.79*H 06/18/22 02:05: Glucometer 139H 06/18/22 02:59: Lactic Acid Level 2.81*H, White Blood Count 6.7, Red Blood Count 4.79, Hemoglobin 12.5L, Hematocrit 39L, Mean Corpuscular Volume 81, Mean Corpuscular Hemoglobin 26, Mean Corpuscular Hemoglobin Concent 32, Red Cell Distribution Wi dth 15.6H, Platelet Count 344, Mean Platelet Volume 10.5, Immature Granulocyte % (Auto) 1, Neutrophils (%) (Auto) 85H, Lymphocytes (%) (Auto) 10L, Monocytes (%) (Auto) 4, Eosinophils (%) (Auto) 0, Basophils (%) (Auto) 0, Neutrophils # (Auto) 5.7, Lymphocytes # (Auto) 0.7L, Monocytes # (Auto) 0.3, Eosinophils # (Auto) 0.0, Basophils # (Auto) 0.0, Immature Granulocyte # (Auto) 0.0, Sodium Level 135, Potassium Level 3.8, Chloride Level 109H, Carbon Dioxide Level 14L, Anion Gap 12, Blood Urea Nitrogen 17, Creatinine 1.12, Estimat Glomerular Filtration Rate 78, BUN/Creatinine Ratio 15, Glucose Level 152H, Calcium Level 7.8L, Corrected Calcium 8.9, Phosphorus Level 3.9, Magnesium Level 1.5L, Total Biliru bin 1.3H, Aspartate Amino Transf (AST/SGOT) 54H, Alanine Aminotransferase (ALT/SGPT) 60H, Alkaline Phosphatase 81, Troponin I < 0.028, Total Protein 5.0L, Albumin 2.6L, Smear Scan YES 06/18/22 03:20: Blood Gas Puncture Site LEFT ARTLINE, Blood Gas Patient Temperature 37.3, Arterial Blood pH 7.36L, Arterial Blood Partial Pressure CO2 27L, Arterial Blood Partial Pressure O2 191H, Arterial Blood HCO3 15*L, Arterial Blood Total CO2 15.5L, Arterial Blood Oxygen Saturation 100, Arterial Blood Base Excess -9.6L, El Test YES-POS, Blood Gas Ventilator Setting YES, Blood Gas Inspired Oxygen NA 06/18/22 05:42: Glucometer 150H 06/18/22 05:50: Lactic Acid Level 3.28*H 06/18/22 07:55: Lactic Acid Level 2.84*H 06/18/22 09:50: Lactic Acid Level 2.93*H, Triglycerides Level 125 06/18/22 11:18: Glucometer 150H Assessment/Plan Assessment/Plan Assess & Plan/Chief Complaint A 56 year old male who history of colon cancer and LAR, who developed colonic stricture and abdominal compartment syndrome He underwent an Exploratory laparotomy, lysis of adhesions, Reyes's pouch creation, end-colostomy, placement left subclavian central venous catheter on 06/17/2022 He is currently sedated and on vent - FiO2 down to 30% On pressors for BP support WBC 6.7 - on abx Hgb stable at 12.5 Lactic acid trending down to 2.84 Continue with abx and pain meds Continue medical management and will work on weaning off vent MARTHA BURDEN APRN Jun 18, 2022 11:51
--- NOTE | 2022-06-18 13:00 | Physical Therapy Progress Note ---
Therapy Progress Note Therapy orders received. Chart review completed. Patient currently acutely ill with ventilation and sedation. Therapy will continue to assess and will begin active PT when patient able to actively participate. SADAF NEAL PT Jun 18, 2022 13:00
[2022-06-18 14:38] VITALS: BP 131/63
[2022-06-18 19:55] VITALS: BP 129/79
[2022-06-18] MEDS: FLUCONAZOLE 100 MG/50 ML 50 ML IV SCH (20:40)
[2022-06-18 22:45] VITALS: BP 100/64
[2022-06-19] MEDS: inSUlin ASPART (NovoLOG) 1 UNIT/0.01 ML (CHARGE PER UNIT) SC SCH ×4 (00:15→18:58)
[2022-06-19] MEDS: NS IV 1000 ML 1,000 ML IV SCH ×4 (00:55→21:45)
[2022-06-19] MEDS: PROPOFOL DRIP (ICU) 100 ML IV SCH ×4 (01:01→10:13)
[2022-06-19 02:33] LABS: BASOPHILS % (AUTO) 0 % (0-10); EOSINOPHILS % (AUTO) 0 % (0-10); HEMATOCRIT 30 % (40-54); HEMOGLOBIN 9.9 g/dL (13.3-17.7); LYMPHOCYTES % (AUTO) 9 % (12-44); MEAN CORPUSCULAR HEMOGLOBIN 26 pg (25-34); MEAN CORPUSCULAR HGB CONC 33 g/dL (32-36); MEAN CORPUSCULAR VOLUME 79 fL (80-99); MEAN PLATELET VOLUME 10.5 fL (9.0-12.2); MONOCYTES # (AUTO) 0.6 10^3/uL (0.0-1.0); MONOCYTES % (AUTO) 5 % (0-12); NEUTROPHILS # (AUTO) 9.6 10^3/uL (1.8-7.8); NEUTROPHILS % (AUTO) 85 % (42-75); PLATELET COUNT 243 10^3/uL (130-400); WHITE BLOOD COUNT 11.3 10^3/uL (4.3-11.0)
[2022-06-19 02:42] LABS: ALBUMIN 2.2 GM/DL (3.2-4.5)
[2022-06-19 02:43] LABS: CALCIUM 7.4 MG/DL (8.5-10.1)
[2022-06-19 02:45] LABS: TOTAL PROTEIN 4.7 GM/DL (6.4-8.2)
[2022-06-19 02:46] LABS: BILIRUBIN,TOTAL 1.2 MG/DL (0.1-1.0)
[2022-06-19 02:48] LABS: CREATININE SERUM 1.19 MG/DL (0.60-1.30); PHOSPHORUS 3.7 MG/DL (2.3-4.7)
[2022-06-19 02:51] VITALS: BP 138/65
[2022-06-19 05:25] LABS: ABG BASE EXCESS -8.6 MMOL/L (-2.5-2.5); ABG OXYGEN SATURATION 99 % (94-100); ABG PCO2 26 MMHG (35-45); ABG PH 7.39 (7.37-7.43); ABG PO2 110 MMHG (79-93); ABG TCO2 16.1 MMOL/L (21.0-31.0)
[2022-06-19 05:32] LABS: ALLENS TEST YES-POS; VENTILATOR YES
[2022-06-19 05:33] LABS: PATIENT TEMP 37.3
[2022-06-19] MEDS: PIPERACILLIN SODIUM/TAZOBACTAM 4.5 GM in NS (IVPB) 100 ML IV SCH ×3 (05:43→21:21)
[2022-06-19 07:06] VITALS: BP 128/58
[2022-06-19] MEDS: POTASSIUM CL 10MEQ/50ML IVPB 50 ML IV SCH ×10 (08:04→20:48)
[2022-06-19] MEDS: MAGNESIUM 1 GM/100 ML IVPB 100 ML IV SCH ×2 (08:04)
[2022-06-19] MEDS: KCL 20 MEQ TAB (K-DUR) PO SCH ×2 (08:05)
[2022-06-19] MEDS: HYDROmorphone 2 MG/ML VIAL (DILAUDID) IV PRN (08:46)
--- NOTE | 2022-06-19 09:41 | Tele-ICU Progress Note ---
Progress Note video rounds completed 56 y/o male with sigmoid stricture Taken to OR yesterday for sigmoid colectomy and colostomy]Now intubated vent: 26/500/30%/10 ABG this am 7.39/26/110/16 PE: comfortable on vent HR 98 NSR BP: 101/56 O2 sat: 97% IMP: sigmoid stricture with large bowel obstruction tretated with sigmoid resection an dcolostomy Post op vent. PLAN: SBT add protonix and SQ heparin for DVT px Focused Exam Lactate Level 06/18/22 14:45: Lactic Acid Level 2.49*H 06/18/22 17:45: Lactic Acid Level 2.44*H 06/18/22 19:58: Lactic Acid Level 2.07*H Height, Weight, BMI Height: 5'7.00" Weight: 197lbs. 3.0oz. 89.041748uk; 38.82 BMI Method:Estimated Labs Laboratory Tests 06/19/22 02:22 Results Results/Procedures Labs Laboratory Tests 06/18/22 02:59 06/19/22 02:22 Patient resulted labs reviewed. Imaging: Reviewed Imaging Report Results Labs Labs Laboratory Tests 06/18/22 09:50: Lactic Acid Level 2.93*H, Triglycerides Level 125 06/18/22 11:18: Glucometer 150H 06/18/22 12:00: Lactic Acid Level 2.75*H, Glucometer 167H 06/18/22 14:45: Lactic Acid Level 2.49*H 06/18/22 17:45: Lactic Acid Level 2.44*H 06/18/22 18:08: Glucometer 139H 06/18/22 19:58: Lactic Acid Level 2.07*H 06/19/22 00:23: Glucometer 124H 06/19/22 02:22: White Blood Count 11.3H, Red Blood Count 3.81L, Hemoglobin 9.9#L, Hematocrit 30L , Mean Corpuscular Volume 79L, Mean Corpuscular Hemoglobin 26, Mean Corpuscular Hemoglobin Concent 33, Red Cell Distribution Width 16.3H, Platelet Count 243, Mean Platelet Volume 10.5, Immature Granulocyte % (Auto) 1, Neutrophils (%) (Auto) 85H, Lymphocytes (%) (Auto) 9L, Monocytes (%) (Auto) 5, Eosinophils (%) (Auto) 0, Basophils (%) (Auto) 0, Neutrophils # (Auto) 9.6H, Lymphocytes # (Auto) 1.0, Monocytes # (Auto) 0.6, Eosinophils # (Auto) 0.0, Basophils # (Auto) 0.0, Immature Granulocyte # (Auto) 0.1, Sodium Level 139, Potassium Level 3.0L, Chloride Level 114H, Carbon Dioxide Level 14L, Anion Gap 11, Blood Urea Nitrogen 25H, Creatinine 1.19, Estimat Glomerular Filtration Rate 72, BUN/Creatinine Ratio 21, Glucose Level 141H, Calcium Level 7.4L, Corrected Calcium 8.8, Phosphorus Level 3.7, Magnesium Level 2.0, Total Bilirubin 1.2H, Aspartate Amino Transf (AST/SGOT) 23, Alanine Aminotransferase (ALT/SGPT) 34, Alkaline Phosphatase 64, Total Protein 4.7L, Albumin 2.2L 06/19/22 05:12: Blood Gas Puncture Site LEFT ARTLINE, Blood Gas Patient Temperature 37.3, Arterial Blood pH 7.39, Arterial Blood Partial Pressure CO2 26L, Arterial Blood Partial Pressure O2 110H, Arterial Blood HCO3 15*L, Arterial Blood Total CO2 16.1L, Arterial Blood Oxygen Saturation 99, Arterial Blood Base Excess -8.6L, El Test YES-POS, Blood Gas Ventilator Setting YES, Blood Gas Inspired Oxygen NA 06/19/22 06:16: Glucometer 134H Microbiology 06/17/22 Blood Culture - Preliminary, Resulted No growth HOMER CRUZ MD Jun 19, 2022 09:41
--- NOTE | 2022-06-19 10:10 | Progress Note - Hospitalist ---
Subjective HPI/CC On Admission Date Seen by Provider: Jun 19, 2022 Pt is a 56yoCM with a PMH of HTN, Chronic pain, rectal cancer who presented to the [facility] abdominal pain. He states he has not had a BM for 2 weeks and has no longer been passing gas. His abdomen was becoming more and more distended as well. He has had multiple abdominal surgeries in the past for rectal carcinoma and also cystectomy and ileal conduit. CT showed possible obstructive process and severe constipation. He was admitted to surgery for further management and I am consulted for medical management. His only complaint this morning is abd pain. He denies any resultant BM or gas from his enemas. Subjective/Events-last exam Pt remains sedated on vent. No concerns per RN. No family at bedside. Focused Exam Lactate Level 06/18/22 14:45: Lactic Acid Level 2.49*H 06/18/22 17:45: Lactic Acid Level 2.44*H 06/18/22 19:58: Lactic Acid Level 2.07*H Objective Exam Vital Signs Vital Signs Date Time Temp Pulse Resp B/P (MAP) Pulse Ox O2 Delivery O2 Flow Rate FiO2 06/19/22 09:35 101 118/72 06/19/22 09:00 36.9 20 97 Mechanical Ventilator 45.00 06/19/22 07:06 30 Capillary Refill : Less Than 3 Seconds General Appearance: Chronically ill, Obese HEENT: Other Respiratory: Lungs Clear, No Respiratory Distress, Other (on vent) Cardiovascular: Regular Rate, Rhythm, No Murmur Gastrointestinal: Soft, Abnormal Bowel Sounds (quiet), Other (output in ostomy, JOSEF with serosanguinous output) Genital/Rectal: Other (barriga) Extremity: Normal Capillary Refill, Pedal Edema (trace) Neurologic/Psychiatric: Other (sedated, appears comfortable) Skin: Normal Color, Warm/Dry Results/Procedures Lab Laboratory Tests 06/19/22 02:22 Patient resulted labs reviewed. Imaging: Reviewed Imaging Report Assessment/Plan Assessment and Plan Assess & Plan/Chief Complaint Colorectal stricture with obstruction Abdominal compartment syndrome History of rectal cancer Postoperative respiratory insufficiency Shock Likely aspiration Management per primary S/p ex lap with henriquez's pouch, end colostomy on 06/17 TeleICU consulted for vent management SBT per teleICU Off phenylephrine, doing better HTN BP stable today Off pressors Hypokalemia- resolved Critical Care Ventilator Management Diagnosis/Problems Diagnosis/Problems (1) Colonic obstruction Status: Acute (2) Hypertension Status: Chronic (3) Hypokalemia Status: Acute AMNA LEE MD Jun 19, 2022 10:10
--- NOTE | 2022-06-19 10:19 | Progress Note ---
Subjective Date Seen by a Provider: Jun 19, 2022 Time Seen by a Provider: 10:10 Subjective/Events-last exam Patient seen with Dr. Aguilar. Patient sedated on vent. Pressors off. Family at bedside. Focused Exam Lactate Level 06/18/22 14:45: Lactic Acid Level 2.49*H 06/18/22 17:45: Lactic Acid Level 2.44*H 06/18/22 19:58: Lactic Acid Level 2.07*H Objective Exam Vital Signs Date Time Temp Pulse Resp B/P (MAP) Pulse Ox O2 Delivery O2 Flow Rate FiO2 06/19/22 09:35 101 118/72 06/19/22 09:00 36.9 101 20 118/72 (87) 97 Mechanical Ventilator 45.00 06/19/22 08:00 37.0 101 25 124/80 (95) 98 Mechanical Ventilator 45.00 06/19/22 07:06 104 26 99 30 06/19/22 07:00 37.0 101 25 123/79 (94) 99 Mechanical Ventilator 45.00 06/19/22 07:00 105 06/19/22 06:37 101 160/68 06/19/22 06:00 37.4 101 26 117/72 (87) 99 Mechanical Ventilator 45.00 06/19/22 05:30 101 113/70 06/19/22 05:00 37.4 101 26 113/70 (84) 99 Mechanical Ventilator 45.00 06/19/22 04:00 97 Mechanical Ventilator 30 06/19/22 04:00 37.4 101 26 105/75 (85) 98 Mechanical Ventilator 45.00 06/19/22 03:00 37.4 104 26 122/77 (92) 99 Mechanical Ventilator 45.00 06/19/22 02:51 105 26 99 30 06/19/22 02:00 37.3 103 26 114/73 (87) 98 Mechanical Ventilator 45.00 06/19/22 01:18 101 116/63 06/19/22 01:00 37.4 101 26 119/74 (89) 98 Mechanical Ventilator 45.00 06/19/22 01:00 101 06/19/22 00:40 101 116/63 06/19/22 00:00 37.4 101 26 105/67 (80) 98 Mechanical Ventilator 45.00 06/18/22 23:59 98 Mechanical Ventilator 30 06/18/22 23:49 101 116/63 06/18/22 23:00 37.4 101 26 101/64 (76) 98 Mechanical Ventilator 45.00 06/18/22 22:45 102 26 98 30 06/18/22 22:00 37.6 101 26 118/75 (89) 98 Mechanical Ventilator 45.00 06/18/22 21:25 100 Mechanical Ventilator 30 06/18/22 21:00 37.5 103 26 103/71 (82) 98 Mechanical Ventilator 45.00 06/18/22 20:39 105 129/79 06/18/22 20:20 105 129/79 06/18/22 20:00 100 Mechanical Ventilator 30 06/18/22 20:00 37.6 105 26 122/75 (91) 99 Mechanical Ventilator 45.00 06/18/22 19:55 105 26 98 30 06/18/22 19:00 103 06/18/22 19:00 37.5 103 26 100/68 (79) 100 Mechanical Ventilator 45.00 06/18/22 18:00 37.4 104 25 99/71 (80) 98 Mechanical Ventilator 45.00 124/65 (84) 06/18/22 17:00 37.5 107 25 104/65 (78) 99 Mechanical Ventilator 45.00 108/59 (75) 06/18/22 16:53 37.1 06/18/22 16:51 105 127/63 06/18/22 16:18 105 127/63 06/18/22 16:00 37.5 105 26 117/78 (91) 98 Mechanical Ventilator 45.00 127/63 (84) 06/18/22 16:00 100 Mechanical Ventilator 35 06/18/22 15:00 37.4 105 25 103/70 (81) 98 Mechanical Ventilator 45.00 117/59 (78) 06/18/22 14:38 104 26 98 70 06/18/22 14:22 97 97/62 06/18/22 14:00 37.3 96 26 123/83 (96) 97 Mechanical Ventilator 45.00 119/69 (86) 06/18/22 13:06 97 97/62 06/18/22 13:00 37.1 97 25 97/62 (74) 97 Mechanical Ventilator 45.00 97/62 (74) 06/18/22 12:50 100 06/18/22 12:00 100 Mechanical Ventilator 60 06/18/22 12:00 36.9 101 25 103/74 (84) 98 Mechanical Ventilator 45.00 106/66 (79) 06/18/22 11:56 101 107/65 06/18/22 11:00 37.0 101 26 105/76 (86) Mechanical Ventilator 45.00 107/65 (79) I & O 06/19/22 07:00 Intake Total 2700 ml Output Total 2560 ml Balance 140 ml Capillary Refill : Less Than 3 Seconds General Appearance: No Apparent Distress, WD/WN Neck: Normal Inspection, Supple Respiratory: Other (On vent 30% FiO2) Cardiovascular: Regular Rate, Rhythm, No Edema Gastrointestinal: normal bowel sounds, soft, distended (Improving), other (Right colostomy functioning, Left urostomy functioning. JOSEF drains x2 with SS drainage. Midline incision dressing in place with mild drainage on dressing.) Neurologic/Psychiatric: Other (Sedated on Vent) Skin: Normal Color, Warm/Dry Results Lab Laboratory Tests 06/18/22 11:18: Glucometer 150H 06/18/22 12:00: Glucometer 167H, Lactic Acid Level 2.75*H 06/18/22 14:45: Lactic Acid Level 2.49*H 06/18/22 17:45: Lactic Acid Level 2.44*H 06/18/22 18:08: Glucometer 139H 06/18/22 19:58: Lactic Acid Level 2.07*H 06/19/22 00:23: Glucometer 124H 06/19/22 02:22: White Blood Count 11.3H, Red Blood Count 3.81L, Hemoglobin 9.9#L, Hematocrit 30L , Mean Corpuscular Volume 79L, Mean Corpuscular Hemoglobin 26, Mean Corpuscular Hemoglobin Concent 33, Red Cell Distribution Width 16.3H, Platelet Count 243, Mean Platelet Volume 10.5, Immature Granulocyte % (Auto) 1, Neutrophils (%) (Auto) 85H, Lymphocytes (%) (Auto) 9L, Monocytes (%) (Auto) 5, Eosinophils (%) (Auto) 0, Basophils (%) (Auto) 0, Neutrophils # (Auto) 9.6H, Lymphocytes # (Auto) 1.0, Monocytes # (Auto) 0.6, Eosinophils # (Auto) 0.0, Basophils # (Auto) 0.0, Immature Granulocyte # (Auto) 0.1, Sodium Level 139, Potassium Level 3.0L, Chloride Level 114H, Carbon Dioxide Level 14L, Anion Gap 11, Blood Urea Nitrogen 25H, Creatinine 1.19, Estimat Glomerular Filtration Rate 72, BUN/Creatinine Ratio 21, Glucose Level 141H, Calcium Level 7.4L, Corrected Calcium 8.8, Phosphorus Level 3.7, Magnesium Level 2.0, Total Bilirubin 1.2H, Aspartate Amino Transf (AST/SGOT) 23, Alanine Aminotransferase (ALT/SGPT) 34, Alkaline Phosphatase 64, Total Protein 4.7L, Albumin 2.2L 06/19/22 05:12: Blood Gas Puncture Site LEFT ARTLINE, Blood Gas Patient Temperature 37.3, Arterial Blood pH 7.39, Arterial Blood Partial Pressure CO2 26L, Arterial Blood Partial Pressure O2 110H, Arterial Blood HCO3 15*L, Arterial Blood Total CO2 16.1L, Arterial Blood Oxygen Saturation 99, Arterial Blood Base Excess -8.6L, El Test YES-POS, Blood Gas Ventilator Setting YES, Blood Gas Inspired Oxygen NA 06/19/22 06:16: Glucometer 134H Microbiology 06/17/22 Blood Culture - Preliminary, Resulted No growth 06/17/22 Gram Stain - Final, Resulted 06/17/22 Sputum Culture, Resulted Pending Assessment/Plan Assessment/Plan Assess & Plan/Chief Complaint A 56 year old male who history of colon cancer and LAR, who developed colonic stricture and abdominal compartment syndrome He underwent an Exploratory laparotomy, lysis of adhesions, Reyes's pouch creation, end-colostomy, placement left subclavian central venous catheter on 06/17/2022 He is currently sedated and on vent - FiO2 down to 30% Off pressors WBC 11.3 - on abx and diflucan Hgb 9.9 - will continue to monitor Lactic acid trending down to 2.07 Continue with abx and pain meds Continue medical management and will work on weaning off vent MARTHA BURDEN APRN Jun 19, 2022 10:19
[2022-06-19 10:32] VITALS: BP 123/56
--- NOTE | 2022-06-19 11:14 | Tele-ICU Progress Note ---
Progress Note passed SBT, will extubate Focused Exam Lactate Level 06/18/22 14:45: Lactic Acid Level 2.49*H 06/18/22 17:45: Lactic Acid Level 2.44*H 06/18/22 19:58: Lactic Acid Level 2.07*H Height, Weight, BMI Height: 5'7.00" Weight: 197lbs. 3.0oz. 89.659069mc; 38.82 BMI Method:Estimated HOMER CRUZ MD Jun 19, 2022 11:14
[2022-06-19] MEDS: fentaNYL INJ 100 MCG/2 ML AMP IVP PRN ×4 (11:33→21:29)
[2022-06-19 15:36] LABS: POTASSIUM 2.9 MMOL/L (3.6-5.0)
[2022-06-19 15:37] LABS: CALCIUM 7.3 MG/DL (8.5-10.1)
[2022-06-19] MEDS: ONDANSETRON 4 MG/2 ML (SDV) Z0FRAN IV PRN (18:01)
[2022-06-19] MEDS: FLUCONAZOLE 100 MG/50 ML 50 ML IV SCH (21:20)
[2022-06-19] MEDS: LABETALOL HCL 20 MG/4 ML VIAL IV PRN (22:05)
[2022-06-20] MEDS: fentaNYL INJ 100 MCG/2 ML AMP IVP PRN ×6 (01:37→19:59)
[2022-06-20] MEDS: NS IV 1000 ML 1,000 ML IV SCH ×3 (01:37→23:09)
[2022-06-20] MEDS: PHENYLEPHRINE DRIP 250 ML IV SCH ×2 (02:20→16:00)
[2022-06-20] MEDS: PIPERACILLIN SODIUM/TAZOBACTAM 4.5 GM in NS (IVPB) 100 ML IV SCH ×3 (05:01→21:23)
[2022-06-20 05:33] LABS: BASOPHILS % (AUTO) 0 % (0-10); EOSINOPHILS % (AUTO) 0 % (0-10); HEMATOCRIT 24 % (40-54); HEMOGLOBIN 7.6 g/dL (13.3-17.7); LYMPHOCYTES # (AUTO) 0.8 10^3/uL (1.0-4.0); LYMPHOCYTES % (AUTO) 10 % (12-44); MEAN CORPUSCULAR HEMOGLOBIN 26 pg (25-34); MEAN CORPUSCULAR HGB CONC 32 g/dL (32-36); MEAN CORPUSCULAR VOLUME 79 fL (80-99); MEAN PLATELET VOLUME 10.5 fL (9.0-12.2); MONOCYTES # (AUTO) 0.4 10^3/uL (0.0-1.0); MONOCYTES % (AUTO) 5 % (0-12); NEUTROPHILS # (AUTO) 6.6 10^3/uL (1.8-7.8); NEUTROPHILS % (AUTO) 83 % (42-75); PLATELET COUNT 174 10^3/uL (130-400); WHITE BLOOD COUNT 7.9 10^3/uL (4.3-11.0)
[2022-06-20 05:41] LABS: ALBUMIN 2.2 GM/DL (3.2-4.5); BILIRUBIN,TOTAL 0.9 MG/DL (0.1-1.0); CALCIUM 7.5 MG/DL (8.5-10.1); CREATININE SERUM 0.85 MG/DL (0.60-1.30); MAGNESIUM 2.1 MG/DL (1.6-2.4); PHOSPHORUS 1.9 MG/DL (2.3-4.7); POTASSIUM 2.6 MMOL/L (3.6-5.0); TOTAL PROTEIN 4.6 GM/DL (6.4-8.2)
[2022-06-20] MEDS: inSUlin ASPART (NovoLOG) 1 UNIT/0.01 ML (CHARGE PER UNIT) SC SCH ×4 (06:00→18:00)
[2022-06-20] MEDS: POTASSIUM CL 10MEQ/50ML IVPB 50 ML IV SCH ×7 (06:00→18:28)
[2022-06-20] MEDS: KCL 20 MEQ TAB (K-DUR) PO SCH (06:00)
[2022-06-20] MEDS: MAGNESIUM 1 GM/100 ML IVPB 100 ML IV SCH (06:00)
[2022-06-20] MEDS: LABETALOL HCL 20 MG/4 ML VIAL IV PRN ×3 (06:12→23:05)
[2022-06-20] MEDS: ONDANSETRON 4 MG/2 ML (SDV) Z0FRAN IV PRN ×2 (08:01→23:07)
[2022-06-20] MEDS: PANTOPRAZOLE 40 MG (PROTONIX) VIAL IV SCH ×2 (08:01→21:20)
[2022-06-20] MEDS: PROPOFOL DRIP (ICU) 100 ML IV SCH ×3 (08:05→22:44)
--- NOTE | 2022-06-20 09:43 | Tele-ICU Progress Note ---
Subjective Date Seen by a Provider: Jun 20, 2022 Time Seen by a Provider: 09:43 Subjective/Events-last exam (Tele-ICU Physician , consultation) Available chart/ vitals / labs / Images reviewed H&P is from ER notes Patient's information available about PMH, allergy reviewed in EMR. ROS as per chart and RN report Video assessment done using teleICU camera, rest of exam as per RN Discussed with RN. This patient with a past medical history of hypertension and a rectal cancer presented with abdominal pain and found to have a intestinal obstruction. He underwent exploratory laparotomy and placement of Quintanilla's pouch with end colostomy. Postoperatively he is intubated and subsequently extubated. Currently he is tolerating oxygenation with nasal cannula. Per RN the colostomy is working well and urine output is good. He is hemodynamically stable. Impression 1. Colorectal stricture with obstruction. 2. Status post exploratory laparotomy and placement of Quintanilla's pouch and end colostomy. 3. Postoperative respiratory failure improved and extubated. 4. Hypokalemia improved 5. Hypotension resolved. Recommendations 1. Continue monitor his respiratory status and blood pressure. 2. Perioperative management per general surgeon. 3. DVT prophylaxis and ulcer prophylaxis. Sepsis Event Evaluation Height, Weight, BMI Height: 5'7.00" Weight: 197lbs. 3.0oz. 89.309900kb; 38.99 BMI Method:Estimated Focused Exam Lactate Level 06/18/22 14:45: Lactic Acid Level 2.49*H 06/18/22 17:45: Lactic Acid Level 2.44*H 06/18/22 19:58: Lactic Acid Level 2.07*H Exam Exam Patient acknowledged, consented, and participated in this virtual visit which was conducted using real time audio/video Vital Signs Date Time Temp Pulse Resp B/P (MAP) Pulse Ox O2 Delivery O2 Flow Rate FiO2 06/20/22 08:00 36.0 06/20/22 08:00 93 33 159/95 (116) 92 Room Air 06/20/22 07:33 90 06/20/22 07:00 87 26 169/101 (123) 96 Room Air 06/20/22 06:00 100 28 162/99 (120) 94 Room Air 06/20/22 05:00 101 13 159/90 (113) 95 Room Air 06/20/22 04:00 96 Room Air 06/20/22 04:00 102 16 158/95 (116) 94 Nasal Cannula 0.50 06/20/22 03:00 103 30 141/74 (96) 94 Nasal Cannula 0.50 06/20/22 02:00 101 28 143/78 (99) 94 Nasal Cannula 0.50 06/20/22 01:00 102 26 164/97 (119) 94 Nasal Cannula 0.50 06/20/22 01:00 103 06/20/22 00:00 99 27 156/103 (120) 97 Nasal Cannula 0.50 06/19/22 23:59 95 Room Air 06/19/22 23:00 94 36 154/100 (118) 98 Nasal Cannula 0.50 06/19/22 22:00 89 33 171/108 (129) 97 Nasal Cannula 0.50 06/19/22 21:00 101 36 166/104 (124) 98 Nasal Cannula 0.50 06/19/22 20:00 97 Room Air 06/19/22 20:00 94 25 159/99 (119) 97 Nasal Cannula 0.50 06/19/22 19:00 92 33 154/98 (116) 97 Nasal Cannula 0.50 06/19/22 19:00 93 06/19/22 18:00 86 33 156/105 (122) 96 Nasal Cannula 0.50 06/19/22 17:00 101 27 159/93 (115) 98 Nasal Cannula 0.50 06/19/22 16:00 97 Room Air 06/19/22 16:00 36.5 06/19/22 16:00 102 33 161/102 (121) 98 Nasal Cannula 0.50 06/19/22 15:00 104 13 152/92 (112) 99 Nasal Cannula 0.50 06/19/22 14:00 103 30 145/95 (112) 99 Nasal Cannula 0.50 06/19/22 13:00 105 06/19/22 13:00 103 145/95 (112) Nasal Cannula 0.50 06/19/22 12:00 107 28 117/72 (87) 98 Mechanical Ventilator 45.00 06/19/22 12:00 97 Room Air 06/19/22 11:00 36.7 103 25 139/75 (96) 96 Mechanical Ventilator 45.00 06/19/22 10:32 100 26 96 30 06/19/22 10:13 101 118/72 I & O 06/20/22 07:00 Intake Total 990 ml Output Total 3415 ml Balance -2425 ml Height & Weight Height: 5'7.00" Weight: 197lbs. 3.0oz. 89.115015eg; 38.99 BMI Method:Estimated General Appearance: No Apparent Distress, WD/WN HEENT: Other Neck: Normal Inspection, Supple Respiratory: Other (On vent 30% FiO2) Cardiovascular: Regular Rate, Rhythm, No Edema Capillary Refill: Less Than 3 Seconds Gastrointestinal: normal bowel sounds, soft, distended (Improving), other (Right colostomy functioning, Left urostomy functioning. JOSEF drains x2 with SS drainage. Midline incision dressing in place with mild drainage on dressing.) Extremity: Normal Capillary Refill, Pedal Edema (trace) Neurologic/Psychiatric: Other (Sedated on Vent) Skin: Normal Color, Warm/Dry Results Lab Laboratory Tests 06/19/22 02:22 06/19/22 15:20 06/20/22 05:10 Assessment/Plan Assessment/Plan as above Critical Care: Critically Ill Patient Time spent with patient (mins): 15 YANELIS YADAV MD Jun 20, 2022 09:43
--- NOTE | 2022-06-20 09:54 | Physical Therapy Evaluation ---
PT Evaluation-General Medical Diagnosis Admission Date Jun 15, 2022 at 19:15 Medical Diagnosis: colonic obstruction & hypokalemia Onset Date: Jun 15, 2022 Therapy Diagnosis Therapy Diagnosis: Gait deficit, strength deficit Height/Weight Height (Feet): 5 Height (Inches): 7.00 Weight (Pounds): 197 Weight (Ounces): 3.0 Precautions Precautions/Isolations: Fall Prevention, Standard Precautions Weight Bear Status Right Lower Extremity: Right Full Weight Bearing Left Lower Extremity: Left Full Weight Bearing Referral Physician: Dr. Aguilar Reason for Referral: Evaluation/Treatment Medical History Reviewed History: Yes Social History Home: Single Level Current Living Status: Children Entry Into Home: Stairs With Railing PT Steps Into Home: 6 Prior Prior Level of Function SCALE: Activities may be completed with or without assistive devices. 0-Yuhlleuzfu-reuoxxy completes the activity by him/herself with no assistance from a helper. 5-Set-up or Clean-up Assistance-helper sets up or cleans up; patient completes activity. Edison assists only prior to or following the activity. 4-Supervision or Touching Assistance-helper provides verbal cues and/or touching/steadying and/or contact guard assistance as patient completes activity. Assistance may be provided throughout the activity or intermittently. 3-Partial/Moderate Assistance-helper does LESS THAN HALF the effort. Edison lifts, holds or supports trunk or limbs, but provides less than half the effort. 2-Substantial/Maximal Assistance-helper does MORE THAN HALF the effort. Edison lifts or holds trunk or limbs and provides more than half the effort. 8-Epxxuoper-zazgys does ALL the effort. Patient does none of the effort to complete the activity. Or, the assistance of 2 or more helpers is required for the patient to complete the activity. If activity was not attempted, code reason: 7-Patient Refused. 9-Not Applicable-not attempted and the patient did not perform the activity before the current illness, exacerbation or injury. 10-Not Attempted due to Environmental Limitations-(lack of equipment, weather restraints, etc.). 88-Not Attempted due to Medical Conditions or Safety Concerns. Bed Mobility: 6 Transfers (B,C,W/C): 6 Gait: 6 Stairs: 6 Indoor Mobility (Ambulation): Independent Stairs: Independent Prior Devices Use: None PT Evaluation-Current Subjective Patient lying supine in bed upon PT arrival, agreeable to treatment. Patient reports not pain currently. Nurse reports that since his extubation, he has been vomiting bile, however she does feel it would benefit the patient to participate in PT> ROM/Strength ROM Lower Extremities Patient limited all planes to PROM ~25 % of normal ROM due to prolonged bed rest. Strength Lower Extremities 3-/5 all planes bilaterally Sensory Vision: Functional Hearing: Functional Sensation Right Lower Extremit: Intact Sensation Left Lower Extremity: Intact Transfers Roll Left to Right (QC): 2 Sit to Lying (QC): 1 Lying to Sitting/Side of Bed(Q: 1 Gait Does the Patient Walk?: No and Walking Goal IS indicated Balance Sitting Static: Fair Sitting Dynamic: Poor Assessment/Needs Patient tolerated evaluation and treatment well. He was able to sit at the edge of the bed ~15 minutes and perform UE activities and nursing washed his back and gown change. Patient performs LE PROM 20 all planes bilaterally. Patient performs all observe bed mobility and transfers with max/Total A. Patient in bed post treatment with all needs met, nursing notified, call light in hand and sister in the room. Rehab Potential: Fair PT Short Term Goals Short Term Goals Time Frame: Jul 02, 2022 Roll Left & Right: 4 Sit to lyin Lying to sitting on side of be: 4 Sit to stand: 4 Chair/tkg-iw-pkjct transfer: 4 Walk 10 feet: 3 Walk 50 feet with two turns: 3 PT Care Home Goals Care Home Goals PT Care Home Goals Time Frame: Jul 16, 2022 Roll Left & Right (QC): 6 Sit to Lying (QC): 6 Lying-Sitting on Side/Bed(QC): 6 Sit to Stand (QC): 6 Chair/Xnl-va-Icyrf Xfer(QC): 6 Toilet Transfer (QC): 6 Car Transfer (QC): 4 Does the Patient Walk: Yes Walk 10 feet (QC): 4 Walk 50ft with 2 Turns (QC): 4 Walk 150 ft (QC): 4 1 Step (curb) (QC): 3 4 Steps (QC): 3 PT Plan Problem List Problem List: Activity Tolerance, Functional Strength, Safety, Balance, Gait, Transfer, Bed Mobility, ROM Treatment/Plan Treatment Plan: Continue Plan of Care Treatment Plan: Bed Mobility, Education, Functional Activity Fernando, Functional Strength, Group Therapy, Gait, Safety, Therapeutic Exercise, Transfers Treatment Duration: Aug 13, 2022 Frequency: 6 times per week Estimated Hrs Per Day: .25 hour per day Patient and/or Family Agrees t: Yes Safety Risks/Education Patient Education: Transfer Techniques Teaching Recipient: Patient, Family Teaching Methods: Demonstration, Discussion Response to Teaching: Verbalize Understanding, Return Demonstration Discharge Recommendations Target Placement Patient would benefit from rehab after 2-3 days of continued medical management to ensure patient is improving with previous surgery Time Time In: 904 Time Out: 945 DATE: Jun 20, 2022 Total Billed Treatment Time: 41 Total Billed Treatment Visit, Georges PATEL, PEREZ JANE PT Jun 20, 2022 09:54
[2022-06-20 11:35] LABS: BASOPHILS % (AUTO) 0 % (0-10); EOSINOPHILS % (AUTO) 0 % (0-10); HEMATOCRIT 22 % (40-54); HEMOGLOBIN 7.3 g/dL (13.3-17.7); LYMPHOCYTES # (AUTO) 0.7 10^3/uL (1.0-4.0); LYMPHOCYTES % (AUTO) 9 % (12-44); MEAN CORPUSCULAR HEMOGLOBIN 26 pg (25-34); MEAN CORPUSCULAR HGB CONC 33 g/dL (32-36); MEAN CORPUSCULAR VOLUME 79 fL (80-99); MEAN PLATELET VOLUME 10.2 fL (9.0-12.2); MONOCYTES # (AUTO) 0.4 10^3/uL (0.0-1.0); MONOCYTES % (AUTO) 5 % (0-12); NEUTROPHILS # (AUTO) 6.6 10^3/uL (1.8-7.8); NEUTROPHILS % (AUTO) 84 % (42-75); PLATELET COUNT 154 10^3/uL (130-400); WHITE BLOOD COUNT 7.8 10^3/uL (4.3-11.0)
--- NOTE | 2022-06-20 13:50 | Occupational Therapy Eval ---
OT Evaluation-General/PLF Medical Diagnosis Admission Date Jun 15, 2022 at 19:15 Medical Diagnosis: colonic obstruction & hypokalemia Onset Date: Jun 15, 2022 Therapy Diagnosis Therapy Diagnosis: decreased ADL status, weakness Height/Weight Height (Feet): 5 Height (Inches): 7.00 Weight (Pounds): 197 Weight (Ounces): 3.0 Precautions Precautions/Isolations: Fall Prevention, Standard Precautions Referral Physician: Dr. Aguilar Referral Reason: Evaluation/Treatment Medical History Additional Medical History HTN, chronic pain, rectal cancer with chemo, GERD, DJD, anxiety/depression, low anterior colorectal resection, nephrostomy tube placement Current History ED with abdominal distention, crampy pain. imaging showed large stool bolus within rectum. 06/17/22 s/p exp lap, henriquez's pouch, end colostomy Social History Home: Single Level Current Living Status: Children Entry Into Home: Stairs With Railing Steps Into Home: 6 ADL-Prior Level of Function SCALE: Activities may be completed with or without assistive devices. 3-Rlduvzroea-durquos completes the activity by him/herself with no assistance from a helper. 5-Set-up or Clean-up Assistance-helper sets up or cleans up; patient completes activity. Tiffin assists only prior to or following the activity. 4-Supervision or Touching Assistance-helper provides verbal cues and/or touching/steadying and/or contact guard assistance as patient completes activity . Assistance may be provided throughout the activity or intermittently. 3-Partial/Moderate Assistance-helper does LESS THAN HALF the effort. Tiffin lifts, holds or supports trunk or limbs, but provides less than half the effort. 2-Substantial/Maximal Assistance-helper does MORE THAN HALF the effort. Tiffin lifts or holds trunk or limbs and provides more than half the effort. 0-Wwrcakexx-cgnlqf does ALL the effort. Patient does none of the effort to complete the activity. Or, the assistance of 2 or more helpers is required for the patient to complete the activity. If activity was not attempted, code reason: 7-Patient Refused. 9-Not Applicable-not attempted and the patient did not perform the activity before the current illness, exacerbation or injury. 10-Not Attempted due to Environmental Limitations-(lack of equipment, weather restraints, etc.). 88-Not Attempted due to Medical Conditions or Safety Concerns. ADL PLOF Comments Pt reports IND with ADLs and functional mobility, no AD. Self Care: Independent Functional Cognition: Independent OT Current Status Subjective Pt in bed, agreeable to OT Tx. Pt's colostomy bag leaked during tx, requiring full linen change. Pt c/o pain, but doesn't verbalize location or pain rating Mental Status/Objective Attachments: Colostomy/Ileostomy, IV Current Hand Dominance: Right Upper Extremity ROM RUE decreased. Pt unable to perform AROM, AAROM/PROM R shoulder flexion to approx 80 degrees. LUE shoulder flexion to approx 100 degrees Upper Extremity Coordination decreased bilaterally Upper Extremity Strength grossly 2/5 ADL-Treatment Eating (QC): 2 (Pt would require assistance with task due to UE deficits in ROM/strength) Oral Hygiene (QC): 7 (Pt declined stating he can complete at home. ) Shower/Bathe Self (QC): 1 (2 person assist required ) Lower Body Dressing (QC): 1 (pt would require total assist, 2 person assist) On/Off Footwear (QC): 1 (pt would require total assist) Toileting Hygiene (QC): 1 (person requires 2 person assist at bed level.) Other Treatments Pt in bed, agreeable to OT Tx. Pt provided information about PLOF and home set up, and participated in UE screen. Pt declined ADLs, agreeable to UE exercises in order to increase BUE Strength and activity tolerance. Pt completed x5 reps each AAROM for the following: shoulder flexion & front punch. Pt then states his ostomy bag was leaking. OT emptied ostomy bag and performed pericare dependently. Nurse notified of BM on pt's abdominal dressing. Noted soiled fitted sheet. 2 person assistance required for rolling side to side in bed to perform posterior hygiene and for linen change. x2 person to boost towards HOB. Post tx, pt in bed, call light in reach and all needs met. Education OT Patient Education: Correct positioning, Energy conservation, Modified ADL techniques, Progress toward Goal/Update tx plan, Purpose of tx/functional activities, Rehab process Teaching Recipient: Patient Teaching Methods: Discussion Response to Teaching: Verbalize Understanding, Reinforcement Needed OT Retirement Goals Retirement Goals Time Frame: Jul 08, 2022 Eating (QC): 5 Oral Hygiene (QC): 5 Toileting Hygiene (QC): 4 Shower/Bathe Self (QC): 3 Upper Body Dressing (QC): 4 Lower Body Dressing (QC): 3 On/Off Footwear (QC): 2 Additional Goals: 1-Demonstrate ADL Tasks, 2-Verbalize Understanding, 3- ImproveStrength/Fernando 1=Demonstrate adherence to instructed precautions during ADL tasks. 2=Patient will verbalize/demonstrate understanding of assistive devices/modifications for ADL. 3=Patient will improve strength/tolerance for activity to enable patient to perform ADL's. OT Education/Plan Problem List/Assessment Assessment: Decreased Activ Tolerance, Decreased Safety Aware, Decreased UE Strength, Dependent Transfers, Impaired Bed Mobility, Impaired Coordination, Impaired Funct Balance, Impaired I ADL's, Impaired Self-Care Skills, Restricted Funct UE ROM Discharge Recommendations Plan/Recommendations: Continue POC Treatment Plan/Plan of Care Patient would benefit from OT for education, treatment and training to promote independence in ADL's, mobility, safety and/or upper extremity function for ADL's. Plan of Care: ADL Retraining, Functional Mobility, UE Funct Exercise/Act Treatment Duration: Jul 08, 2022 Frequency: 3 times per week (3-5 times per week) Estimated Hrs Per Day: .25 hour per day Agreement: Yes Rehab Potential: Fair Time Start Time: 13:10 Stop Time: 13:38 DATE: Jun 20, 2022 Total Time Billed (hr/min): 28 Billed Treatment Time 1, EVH (10'), ADL (18') CHRISTIAN GAR OT Jun 20, 2022 13:50
[2022-06-20 15:31] LABS: CALCIUM 7.5 MG/DL (8.5-10.1); CREATININE SERUM 0.8 MG/DL (0.60-1.30)
[2022-06-20 15:40] LABS: POTASSIUM 2.5 MMOL/L (3.6-5.0)
--- NOTE | 2022-06-20 17:56 | Progress Note - Hospitalist ---
Subjective HPI/CC On Admission Date Seen by Provider: Jun 20, 2022 Time Seen by Provider: 09:50 Pt is a 56yoCM with a PMH of HTN, Chronic pain, rectal cancer who presented to the [facility] duet abdominal pain. He states he has not had a BM for 2 weeks and has no longer been passing gas. His abdomen was becoming more and more distended as w ell. He has had multiple abdominal surgeries in the past for rectal carcinoma and also cystectomy and ileal conduit. CT showed possible obstructive process and severe constipation. He was admitted to surgery for further management and I am consulted for medical management. His only complaint this morning is abd pain. He denies any resultant BM or gas from his enemas. Subjective/Events-last exam He had some nausea and vomiting last night. This may have been due to drinking a Sprite too quickly. He denies any nausea or vomiting this morning. He denies abdominal pain. Focused Exam Lactate Level 06/18/22 14:45: Lactic Acid Level 2.49*H 06/18/22 17:45: Lactic Acid Level 2.44*H 06/18/22 19:58: Lactic Acid Level 2.07*H Objective Exam Vital Signs Vital Signs Date Time Temp Pulse Resp B/P (MAP) Pulse Ox O2 Delivery O2 Flow Rate FiO2 06/20/22 17:00 96 27 135/80 (98) 97 Room Air 06/20/22 15:49 36.1 06/20/22 05:00 06/19/22 10:32 30 Capillary Refill : Less Than 3 Seconds General Appearance: No Apparent Distress, Obese Respiratory: Lungs Clear, No Respiratory Distress Cardiovascular: Regular Rate, Rhythm, No Murmur Gastrointestinal: Normal Bowel Sounds, Soft, Other (colostomy and urostomy in place) Extremity: Normal Inspection, No Pedal Edema Neurologic/Psychiatric: Alert, Normal Mood/Affect, Motor Weakness Skin: Warm/Dry, Pallor Results/Procedures Lab Laboratory Tests 06/20/22 05:10 06/20/22 11:30 06/20/22 15:10 Patient resulted labs reviewed. Imaging: Reviewed Imaging Report Assessment/Plan Assessment and Plan Assess & Plan/Chief Complaint Colorectal stricture with obstruction Abdominal compartment syndrome History of rectal cancer Postoperative anemia Management per primary S/p ex lap with henriquez's pouch, end colostomy on 06/17 TeleICU following Hgb trending down slowly, monitor HTN IV antihypertensives as needed Likely due to pain Hypokalemia Monitor and replace as needed Shock- resolved Postoperative respiratory insufficiency- resolved Endotracheally intubated- resolved Diagnosis/Problems Diagnosis/Problems (1) Colonic obstruction Status: Acute (2) Colonic stricture Status: Acute (3) Abdominal compartment syndrome Status: Acute Qualifiers: Compartment syndrome type: non-traumatic Qualified Codes: M79.A3 - Nontraumatic compartment syndrome of abdomen (4) Postoperative anemia Status: Acute (5) History of rectal cancer Status: Chronic (6) Hypokalemia Status: Acute (7) Shock Status: Resolved Resolution Date/Time: 06/20/22 @ 17:58 (8) Acute postoperative respiratory insufficiency Status: Resolved (9) Endotracheally intubated Status: Resolved Resolution Date/Time: 06/20/22 @ 17:58 RACHAEL SHELDON MD Jun 20, 2022 17:56
--- NOTE | 2022-06-20 19:31 | Progress Note ---
Subjective Date Seen by a Provider: Jun 20, 2022 Time Seen by a Provider: 19:30 Subjective/Events-last exam doing well. tolerating clears. pain controlled. no fever/chills. colostomy functional Focused Exam Lactate Level 06/18/22 14:45: Lactic Acid Level 2.49*H 06/18/22 17:45: Lactic Acid Level 2.44*H 06/18/22 19:58: Lactic Acid Level 2.07*H Objective Exam Vital Signs Date Time Temp Pulse Resp B/P (MAP) Pulse Ox O2 Delivery O2 Flow Rate FiO2 06/20/22 18:00 96 36 148/81 (103) 98 Room Air 06/20/22 17:00 96 27 135/80 (98) 97 Room Air 06/20/22 16:00 Room Air 06/20/22 16:00 91 30 147/79 (101) 98 Room Air 06/20/22 15:49 36.1 06/20/22 15:00 87 34 131/84 (100) 97 Room Air 06/20/22 14:00 95 24 127/77 (94) 96 Room Air 06/20/22 13:03 92 06/20/22 13:00 93 29 140/84 (102) 94 Room Air 06/20/22 12:00 86 28 148/87 (107) 96 Room Air 06/20/22 12:00 Room Air 06/20/22 12:00 35.8 06/20/22 11:00 85 20 146/87 (106) 97 Room Air 06/20/22 10:00 80 30 141/86 (104) 95 Room Air 06/20/22 09:00 90 36 170/100 (123) 94 Room Air 06/20/22 08:00 36.0 06/20/22 08:00 93 33 159/95 (116) 92 Room Air 06/20/22 08:00 Room Air 06/20/22 07:33 90 06/20/22 07:00 87 26 169/101 (123) 96 Room Air 06/20/22 06:00 100 28 162/99 (120) 94 Room Air 06/20/22 05:00 101 13 159/90 (113) 95 Room Air 06/20/22 04:00 96 Room Air 06/20/22 04:00 102 16 158/95 (116) 94 Nasal Cannula 0.50 06/20/22 03:00 103 30 141/74 (96) 94 Nasal Cannula 0.50 06/20/22 02:00 101 28 143/78 (99) 94 Nasal Cannula 0.50 06/20/22 01:00 102 26 164/97 (119) 94 Nasal Cannula 0.50 06/20/22 01:00 103 06/20/22 00:00 99 27 156/103 (120) 97 Nasal Cannula 0.50 06/19/22 23:59 95 Room Air 06/19/22 23:00 94 36 154/100 (118) 98 Nasal Cannula 0.50 06/19/22 22:00 89 33 171/108 (129) 97 Nasal Cannula 0.50 06/19/22 21:00 101 36 166/104 (124) 98 Nasal Cannula 0.50 06/19/22 20:00 97 Room Air 06/19/22 20:00 94 25 159/99 (119) 97 Nasal Cannula 0.50 I & O 06/20/22 07:00 Intake Total 990 ml Output Total 3415 ml Balance -2425 ml Capillary Refill : Less Than 3 Seconds General Appearance: No Apparent Distress HEENT: PERRL/EOMI Neck: Full Range of Motion Respiratory: Chest Non Tender, Decreased Breath Sounds Cardiovascular: Regular Rate, Rhythm Gastrointestinal: soft, tenderness, other (colostomy pink/viable, wounds clean/dry) Extremity: Normal Capillary Refill Neurologic/Psychiatric: Alert, Oriented x3 Skin: Normal Color Lymphatic: No Adenopathy Results Lab Laboratory Tests 06/20/22 00:26: Glucometer 129H 06/20/22 05:10: White Blood Count 7.9, Red Blood Count 2.98L, Hemoglobin 7.6#L, Hematocrit 24L, Mean Corpuscular Volume 79L, Mean Corpuscular Hemoglobin 26, Mean Corpuscular Hemoglobin Concent 32, Red Cell Distribution Width 16.0H, Platelet Count 174, Mean Platelet Volume 10.5, Immature Granulocyte % (Auto) 1, Neutrophils (%) (Auto) 83H, Lymphocytes (%) (Auto) 10L, Monocytes (%) (Auto) 5, Eosinophils (%) (Auto) 0, Basophils (%) (Auto) 0, Neutrophils # (Auto) 6.6, Lymphocytes # (Auto) 0.8L, Monocytes # (Auto) 0.4, Eosinophils # (Auto) 0.0, Basophils # (Auto) 0.0, Immature Granulocyte # (Auto) 0.1, Sodium Level 141, Potassium Level 2.6L, Chloride Level 117H, Carbon Dioxide Level 15L, Anion Gap 9, Blood Urea Nitrogen 23H, Creatinine 0.85, Estimat Glomerular Filtration Rate 103, BUN/Creatinine Ratio 27, Glucose Level 130H, Calcium Level 7.5L, Corrected Calcium 8.9, Phosphorus Level 1.9L, Magnesium Level 2.1, Total Bilirubin 0.9, Aspartate Amino Transf (AST/SGOT) 20, Alanine Aminotransferase (ALT/SGPT) 28, Alkaline Phosphatase 62, Total Protein 4.6L, Albumin 2.2L 06/20/22 06:16: Glucometer 120H 06/20/22 11:30: White Blood Count 7.8, Red Blood Count 2.79L, Hemoglobin 7.3L, Hematocrit 22L, Mean Corpuscular Volume 79L, Mean Corpuscular Hemoglobin 26, Mean Corpuscular Hemoglobin Concent 33, Red Cell Distribution Width 16.1H, Platelet Count 154, Mean Platelet Volume 10.2, Immature Granulocyte % (Auto) 2, Neutrophils (%) (Au to) 84H, Lymphocytes (%) (Auto) 9L, Monocytes (%) (Auto) 5, Eosinophils (%) (Auto) 0, Basophils (%) (Auto) 0, Neutrophils # (Auto) 6.6, Lymphocytes # (Auto) 0.7L, Monocytes # (Auto) 0.4, Eosinophils # (Auto) 0.0, Basophils # (Auto) 0.0, Immature Granulocyte # (Auto) 0.1 06/20/22 15:10: Sodium Level 140, Potassium Level 2.5*L, Chloride Level 117H, Carbon Dioxide Level 17L, Anion Gap 6, Blood Urea Nitrogen 21H, Creatinine 0.80, Estimat Glomerular Filtration Rate 105, BUN/Creatinine Ratio 26, Glucose Level 136H, Calcium Level 7.5L Microbiology 06/17/22 Blood Culture - Preliminary, Resulted Gram Positive [place] 06/17/22 Gram Stain - Final, Resulted 06/17/22 Sputum Culture - Preliminary, Resulted Escherichia coli Susceptibility To Follow Assessment/Plan Assessment/Plan Assess & Plan/Chief Complaint s/p exploratory laparotomy, henriquez's pouch formation, 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 correct electrolytes. ambulate. advance diet. VIJAY CANNON MD Jun 20, 2022 19:30
[2022-06-20] MEDS: FLUCONAZOLE 100 MG/50 ML 50 ML IV SCH (21:22)
[2022-06-21 00:18] LABS: POTASSIUM 2.6 MMOL/L (3.6-5.0)
[2022-06-21 00:19] LABS: CALCIUM 7.3 MG/DL (8.5-10.1)
[2022-06-21 00:24] LABS: CREATININE SERUM 0.76 MG/DL (0.60-1.30); PHOSPHORUS 1.7 MG/DL (2.3-4.7)
[2022-06-21 00:26] LABS: MAGNESIUM 1.9 MG/DL (1.6-2.4)
[2022-06-21] MEDS: fentaNYL INJ 100 MCG/2 ML AMP IVP PRN ×8 (01:15→21:43)
[2022-06-21] MEDS: LABETALOL HCL 20 MG/4 ML VIAL IV PRN ×3 (04:23→14:33)
[2022-06-21 04:41] LABS: BASOPHILS % (AUTO) 0 % (0-10); EOSINOPHILS % (AUTO) 1 % (0-10); HEMATOCRIT 21 % (40-54); LYMPHOCYTES # (AUTO) 0.9 10^3/uL (1.0-4.0); LYMPHOCYTES % (AUTO) 12 % (12-44); MEAN CORPUSCULAR HEMOGLOBIN 26 pg (25-34); MEAN CORPUSCULAR HGB CONC 33 g/dL (32-36); MEAN CORPUSCULAR VOLUME 80 fL (80-99); MEAN PLATELET VOLUME 10.1 fL (9.0-12.2); MONOCYTES # (AUTO) 0.5 10^3/uL (0.0-1.0); MONOCYTES % (AUTO) 6 % (0-12); NEUTROPHILS # (AUTO) 5.6 10^3/uL (1.8-7.8); NEUTROPHILS % (AUTO) 77 % (42-75); PLATELET COUNT 164 10^3/uL (130-400); WHITE BLOOD COUNT 7.3 10^3/uL (4.3-11.0)
[2022-06-21 04:47] LABS: HEMOGLOBIN 6.9 g/dL (13.3-17.7)
[2022-06-21 04:50] LABS: ALBUMIN 2.2 GM/DL (3.2-4.5)
[2022-06-21 04:51] LABS: CALCIUM 7.4 MG/DL (8.5-10.1)
[2022-06-21 04:52] LABS: TOTAL PROTEIN 4.7 GM/DL (6.4-8.2)
[2022-06-21 04:54] LABS: BILIRUBIN,TOTAL 0.8 MG/DL (0.1-1.0)
[2022-06-21 04:56] LABS: CREATININE SERUM 0.74 MG/DL (0.60-1.30)
[2022-06-21 04:57] LABS: POTASSIUM 2.5 MMOL/L (3.6-5.0)
[2022-06-21] MEDS: PHENYLEPHRINE DRIP 250 ML IV SCH (05:00)
[2022-06-21] MEDS: POTASSIUM CL 10MEQ/50ML IVPB 50 ML IV SCH ×12 (05:31→23:55)
[2022-06-21] MEDS: PIPERACILLIN SODIUM/TAZOBACTAM 4.5 GM in NS (IVPB) 100 ML IV SCH ×3 (05:33→20:50)
[2022-06-21] MEDS: inSUlin ASPART (NovoLOG) 1 UNIT/0.01 ML (CHARGE PER UNIT) SC SCH ×5 (06:00→23:26)
[2022-06-21] MEDS: KCL 20 MEQ TAB (K-DUR) PO SCH (06:00)
[2022-06-21] MEDS: MAGNESIUM 1 GM/100 ML IVPB 100 ML IV SCH (06:00)
[2022-06-21] MEDS: PROPOFOL DRIP (ICU) 100 ML IV SCH (06:27)
[2022-06-21] MEDS: ONDANSETRON 4 MG/2 ML (SDV) Z0FRAN IV PRN (06:37)
[2022-06-21] MEDS: NS IV 1000 ML 1,000 ML IV SCH ×3 (07:55→21:45)
--- NOTE | 2022-06-21 08:39 | Physical Therapy Daily Note ---
PT Daily Note-Current Subjective Patient in bed pre-tx, did not report pain, agrees to PT. Pain Section J - Health Conditions 1. Rarely or not at all 2. Occasionally 3. Frequently 4. Almost constantly 8. Unable to answer Pain Effect on Sleep: 1 Pain Interference with Therapy: 1 Pain Interference w/Day-to-Day: 1 Appearance Patient in bed with nurse in room, tray, phone, nurse call, all needs met. Mental Status Patient Orientation: Person, Place, Situation Attachments: Colostomy/Ileostomy, Suprapubic Catheter, Drains Transfers SCALE: Activities may be completed with or without assistive devices. 7-Qrzcbxckqe-anjsojo completes the activity by him/herself with no assistance from a helper. 5-Set-up or Clean-up Assistance-helper sets up or cleans up; patient completes activity. Wheeler assists only prior to or following the activity. 4-Supervision or Touching Assistance-helper provides verbal cues and/or to uching/steadying and/or contact guard assistance as patient completes activity. Assistance may be provided throughout the activity or intermittently. 3-Partial/Moderate Assistance-helper does LESS THAN HALF the effort. Wheeler lifts, holds or supports trunk or limbs, but provides less than half the effort. 2-Substantial/Maximal Assistance-helper does MORE THAN HALF the effort. Wheeler lifts or holds trunk or limbs and provides more than half the effort. 7-Yzcbrrckh-euiukf does ALL the effort. Patient does none of the effort to complete the activity. Or, the assistance of 2 or more helpers is required for the patient to complete the activity. If activity was not attempted, code reason: 7-Patient Refused. 9-Not Applicable-not attempted and the patient did not perform the activity before the current illness, exacerbation or injury. 10-Not Attempted due to Environmental Limitations-(lack of equipment, weather restraints, etc.). 88-Not Attempted due to Medical Conditions or Safety Concerns. Roll Left & Right (QC): 1 Sit to Lying (QC): 1 Lying to Sitting/Side of Bed(Q: 1 Sit to Stand (QC): 3 Dependent with bed mobility Weight Bearing Right Lower Extremity: Right Full Weight Bearing Left Lower Extremity: Left Full Weight Bearing Assessment Current Status: Poor Progress Patient is dependent with bed mobility. We sat EOB and stood with min assist when ostomy bag began to leak. Nurse notified and was cleaned up, and laid back down in bed. Patient extremely weak and doesn't say much during treatment. PT Short Term Goals Short Term Goals Time Frame: Jul 02, 2022 Roll Left & Right: 4 Sit to lyin Lying to sitting on side of be: 4 Sit to stand: 4 Chair/fck-xm-uencp transfer: 4 Walk 10 feet: 3 Walk 50 feet with two turns: 3 PT Fabric Worker Leader Goals Custodial Goals PT Fabric Worker Leader Goals Time Frame: Jul 16, 2022 Roll Left & Right (QC): 6 Sit to Lying (QC): 6 Lying-Sitting on Side/Bed(QC): 6 Sit to Stand (QC): 6 Chair/Jcl-fg-Gkrqq Xfer(QC): 6 Toilet Transfer (QC): 6 Car Transfer (QC): 4 Does the Patient Walk: Yes Walk 10 feet (QC): 4 Walk 50ft with 2 Turns (QC): 4 Walk 150 ft (QC): 4 1 Step (curb) (QC): 3 4 Steps (QC): 3 PT Plan Problem List Problem List: Activity Tolerance, Functional Strength, Safety, Balance, Gait, Transfer, Bed Mobility, ROM Treatment/Plan Treatment Plan: Continue Plan of Care Treatment Plan: Bed Mobility, Education, Functional Activity Fernando, Functional Strength, Group Therapy, Gait, Safety, Therapeutic Exercise, Transfers Treatment Duration: Aug 13, 2022 Frequency: 6 times per week Estimated Hrs Per Day: .25 hour per day Patient and/or Family Agrees t: Yes Safety Risks/Education Patient Education: Correct Positioning, Safety Issues Teaching Recipient: Patient Teaching Methods: Demonstration, Discussion Response to Teaching: Reinforcement Needed Time Time In: 0800 Time Out: 15 DATE: Jun 21, 2022 Total Billed Treatment Time: 15 Total Billed Treatment 1 visit FA DANNI AMADOR PT Jun 21, 2022 08:39
--- NOTE | 2022-06-21 08:58 | Occupational Ther Daily Note ---
OT Current Status-Daily Note Subjective Pt in bed, agreeable to OT Tx. Pt doesn't say much throughout tx. Mental Status/Objective Attachments: Colostomy/Ileostomy, Drains, Gonzalez Catheter, IV ADL-Treatment Therapy Code Descriptions/Definitions Functional [place] Measure: 0=Not Assessed/NA 4=Minimal Assistance 1=Total Assistance 5=Supervision or Setup 2=Maximal Assistance 6=Modified [place] 3=Moderate Assistance 7=Complete IndependenceSCALE: Activities may be completed with or without assistive devices. 8-Jtxspdzzde-vjihnpp completes the activity by him/herself with no assistance from a helper. 5-Set-up or Clean-up Assistance-helper sets up or cleans up; patient completes activity. [place] assists only prior to or following the activity. 4-Supervision or Touching Assistance-helper provides verbal cues and/or touching/steadying and/or contact guard assistance as patient completes activity. Assistance may be provided throughout the activity or intermittently. 3-Partial/Moderate Assistance-helper does LESS THAN HALF the effort. [place] lifts, holds or supports trunk or limbs, but provides less than half the effort. 2-Substantial/Maximal Assistance-helper does MORE THAN HALF the effort. [place] l ifts or holds trunk or limbs and provides more than half the effort. 9-Exozstrqk-ebzgyp does ALL the effort. Patient does none of the effort to complete the activity. Or, the assistance of 2 or more helpers is required for the patient to complete the activity. If activity was not attempted, code reason: 7-Patient Refused. 9-Not Applicable-not attempted and the patient did not perform the activity before the current illness, exacerbation or injury. 10-Not Attempted due to Environmental Limitations-(lack of equipment, weather restraints, etc.). 88-Not Attempted due to Medical Conditions or Safety Concerns. Toileting Hygiene (QC): 1 Other Treatment Pt transferred supine to sit EOB, assist x2. Pt sat EOB, then stood at EOB with FWW (min A). Pt's ostomy bag began to leak, RN notified. Pt dependent for hygiene to clean up leaked BM. Pt transferred supine dependent, RN present for dressing change and to assess ostomy bag. Post tx, pt in bed, call light in reach and all needs met. RN present. Education OT Patient Education: Correct positioning, Energy conservation, Modified ADL techniques, Progress toward Goal/Update tx plan, Purpose of tx/functional activities Teaching Recipient: Patient Teaching Methods: Discussion Response to Teaching: Reinforcement Needed OT Assisted Goals Assisted Goals Time Frame: Jul 08, 2022 Eating (QC): 5 Oral Hygiene (QC): 5 Toileting Hygiene (QC): 4 Shower/Bathe Self (QC): 3 Upper Body Dressing (QC): 4 Lower Body Dressing (QC): 3 On/Off Footwear (QC): 2 Additional Goals: 1-Demonstrate ADL Tasks, 2-Verbalize Understanding, 3- ImproveStrength/[place] 1=Demonstrate adherence to instructed precautions during ADL tasks. 2=Patient will verbalize/demonstrate understanding of assistive devices/modifications for ADL. 3=Patient will improve strength/tolerance for activity to enable patient to perform ADL's. OT Education/Plan Problem List/Assessment Assessment: Decreased Activ Tolerance, Decreased UE Strength, Dependent Transfers, Impaired Bed Mobility, Impaired Funct Balance, Impaired I ADL's, Impaired Self-Care Skills Discharge Recommendations Plan/Recommendations: Continue POC Treatment Plan/Plan of Care Patient would benefit from OT for education, treatment and training to promote independence in ADL's, mobility, safety and/or upper extremity function for ADL's. Plan of Care: ADL Retraining, Functional Mobility, UE Funct Exercise/Act Treatment Duration: Jul 08, 2022 Frequency: 3 times per week (3-5 times per week) Estimated Hrs Per Day: .25 hour per day Agreement: Yes Rehab Potential: Fair Time Start Time: 08:00 Stop Time: 08:15 DATE: Jun 21, 2022 Total Time Billed (hr/min): 15 Billed Treatment Time 1, ADL CHRISTIAN GAR OT Jun 21, 2022 08:58
[2022-06-21] MEDS: PANTOPRAZOLE 40 MG (PROTONIX) VIAL IV SCH ×3 (09:00→20:18)
[2022-06-21] MEDS ORDERED: NS IV 500 ML 500 ML IV SCH (10:30)
[2022-06-21 12:48] VITALS: BP 170/105
[2022-06-21 13:06] VITALS: BP 161/107
--- NOTE | 2022-06-21 13:35 | Tele-ICU Progress Note ---
Subjective Date Seen by a Provider: Jun 21, 2022 Time Seen by a Provider: 13:30 Subjective/Events-last exam (Tele-ICU Physician , consultation) Available chart/ vitals / labs / Images reviewed H&P is from ER notes Patient's information available about PMH, allergy reviewed in EMR. ROS as per chart and RN report Video assessment done using teleICU camera, rest of exam as per RN Discussed with RN. Today patient has no shortness of breath however his blood pressure has been high and also he is having moderate to severe pain requiring pain medications. Apparently ostomy bag leaked and it has been replaced today. Urine output is satisfactory. Impression 1. Colorectal stricture with obstruction. 2. Status post exploratory laparotomy and placement of Quintanilla's pouch and end colostomy. 3. Postoperative respiratory failure improved and extubated. 4. Hypokalemia improved 5. Hypotension resolved. ^. post op pain. 7.hypertension Recommendations 1. Continue monitor his respiratory status and blood pressure. will give prn labetolol. 2. Perioperative management per general surgeon. 3. DVT prophylaxis and ulcer prophylaxis. Sepsis Event Evaluation Height, Weight, BMI Height: 5'7.00" Weight: 197lbs. 3.0oz. [id number]; 37.61 BMI Method:Estimated Focused Exam Lactate Level 06/18/22 14:45: Lactic Acid Level 2.49*H 06/18/22 17:45: Lactic Acid Level 2.44*H 06/18/22 19:58: Lactic Acid Level 2.07*H Exam Exam Patient acknowledged, consented, and participated in this virtual visit which was conducted using real time audio/video Vital Signs Date Time Temp Pulse Resp B/P (MAP) Pulse Ox O2 Delivery O2 Flow Rate FiO2 06/21/22 13:06 36.1 73 22 161/107 98 Room Air 06/21/22 12:48 36.2 75 23 170/105 97 Room Air 06/21/22 11:51 36.6 06/21/22 09:00 75 21 179/103 (128) 97 Room Air 06/21/22 08:00 80 26 175/107 (129) 97 Room Air 06/21/22 08:00 35.8 06/21/22 07:00 75 26 171/102 (125) 98 Room Air 06/21/22 06:50 82 06/21/22 06:00 81 27 175/102 (126) 96 Room Air 06/21/22 05:00 78 26 168/92 (117) 97 Room Air 06/21/22 04:00 76 25 162/93 (116) 97 Room Air 06/21/22 04:00 97 Room Air 06/21/22 03:00 73 24 161/90 (113) 96 Room Air 06/21/22 02:00 73 27 165/84 (111) 95 Room Air 06/21/22 01:00 78 06/21/22 01:00 78 27 157/88 (111) 96 Room Air 06/21/22 00:00 74 28 154/82 (106) 97 Room Air 06/20/22 23:59 95 Room Air 06/20/22 23:00 88 29 174/99 (124) 97 Room Air 06/20/22 22:58 82 30 171/100 (123) 97 Room Air 06/20/22 22:00 92 32 180/91 (120) 95 Room Air 06/20/22 21:00 93 31 154/85 (108) 96 Room Air 06/20/22 20:11 36.6 06/20/22 20:00 97 Room Air 06/20/22 20:00 92 34 147/82 (103) 96 Room Air 06/20/22 19:00 90 06/20/22 19:00 90 27 143/85 (104) 97 Room Air 06/20/22 18:00 96 36 148/81 (103) 98 Room Air 06/20/22 17:00 96 27 135/80 (98) 97 Room Air 06/20/22 16:00 Room Air 06/20/22 16:00 91 30 147/79 (101) 98 Room Air 06/20/22 15:49 36.1 06/20/22 15:00 87 34 131/84 (100) 97 Room Air 06/20/22 14:00 95 24 127/77 (94) 96 Room Air I & O 06/21/22 07:00 Intake Total 1790 ml Output Total 4355 ml Balance -2565 ml Height & Weight Height: 5'7.00" Weight: 197lbs. 3.0oz. 89.906122xf; 37.61 BMI Method:Estimated General Appearance: No Apparent Distress HEENT: PERRL/EOMI Neck: Full Range of Motion Respiratory: Chest Non Tender, Decreased Breath Sounds Cardiovascular: Regular Rate, Rhythm Capillary Refill: Less Than 3 Seconds Gastrointestinal: soft, tenderness, other (colostomy pink/viable, wounds clean/dry) Extremity: Normal Capillary Refill Neurologic/Psychiatric: Alert, Oriented x3 Skin: Normal Color Lymphatic: No Adenopathy Results Lab Laboratory Tests 06/19/22 15:20 06/20/22 05:10 06/20/22 11:30 06/20/22 15:10 06/20/22 23:58 06/21/22 04:30 Assessment/Plan Assessment/Plan as above Critical Care: Critically Ill Patient Time spent with patient (mins): 15 YANELIS YADAV MD Jun 21, 2022 13:35
--- NOTE | 2022-06-21 14:55 | Progress Note ---
Subjective Date Seen by a Provider: Jun 21, 2022 Time Seen by a Provider: 14:00 Subjective/Events-last exam doing well. did have an episode of regurgitation however tolerating diet for the most part. copious stool output per colostomy. Focused Exam Lactate Level 06/18/22 17:45: Lactic Acid Level 2.44*H 06/18/22 19:58: Lactic Acid Level 2.07*H Objective Exam Vital Signs Date Time Temp Pulse Resp B/P (MAP) Pulse Ox O2 Delivery O2 Flow Rate FiO2 06/21/22 13:06 36.1 73 22 161/107 98 Room Air 06/21/22 12:48 36.2 75 23 170/105 97 Room Air 06/21/22 11:51 36.6 06/21/22 09:00 75 21 179/103 (128) 97 Room Air 06/21/22 08:00 80 26 175/107 (129) 97 Room Air 06/21/22 08:00 35.8 06/21/22 07:00 75 26 171/102 (125) 98 Room Air 06/21/22 06:50 82 06/21/22 06:00 81 27 175/102 (126) 96 Room Air 06/21/22 05:00 78 26 168/92 (117) 97 Room Air 06/21/22 04:00 76 25 162/93 (116) 97 Room Air 06/21/22 04:00 97 Room Air 06/21/22 03:00 73 24 161/90 (113) 96 Room Air 06/21/22 02:00 73 27 165/84 (111) 95 Room Air 06/21/22 01:00 78 06/21/22 01:00 78 27 157/88 (111) 96 Room Air 06/21/22 00:00 74 28 154/82 (106) 97 Room Air 06/20/22 23:59 95 Room Air 06/20/22 23:00 88 29 174/99 (124) 97 Room Air 06/20/22 22:58 82 30 171/100 (123) 97 Room Air 06/20/22 22:00 92 32 180/91 (120) 95 Room Air 06/20/22 21:00 93 31 154/85 (108) 96 Room Air 06/20/22 20:11 36.6 06/20/22 20:00 97 Room Air 06/20/22 20:00 92 34 147/82 (103) 96 Room Air 06/20/22 19:00 90 06/20/22 19:00 90 27 143/85 (104) 97 Room Air 06/20/22 18:00 96 36 148/81 (103) 98 Room Air 06/20/22 17:00 96 27 135/80 (98) 97 Room Air 06/20/22 16:00 Room Air 06/20/22 16:00 91 30 147/79 (101) 98 Room Air 06/20/22 15:49 36.1 06/20/22 15:00 87 34 131/84 (100) 97 Room Air I & O 06/21/22 07:00 Intake Total 1790 ml Output Total 4355 ml Balance -2565 ml Capillary Refill : Less Than 3 Seconds General Appearance: No Apparent Distress HEENT: PERRL/EOMI Neck: Full Range of Motion Respiratory: Chest Non Tender Cardiovascular: Regular Rate, Rhythm Gastrointestinal: normal bowel sounds, soft, tenderness, other (colostomy pink/viable, wounds clean/dry) Extremity: Normal Capillary Refill Neurologic/Psychiatric: Alert, Oriented x3 Skin: Normal Color Lymphatic: No Adenopathy Results Lab Laboratory Tests 06/20/22 15:10: Sodium Level 140, Potassium Level 2.5*L, Chloride Level 117H, Carbon Dioxide Level 17L, Anion Gap 6, Blood Urea Nitrogen 21H, Creatinine 0.80, Estimat Glomerular Filtration Rate 105, BUN/Creatinine Ratio 26, Glucose Level 136H, Calcium Level 7.5L 06/20/22 23:58: Sodium Level 139, Potassium Level 2.6L, Chloride Level 116H, Carbon Dioxide Level 15L, Anion Gap 8, Blood Urea Nitrogen 18, Creatinine 0.76, Estimat Glomerular Filtration Rate 106, BUN/Creatinine Ratio 24, Glucose Level 122H, Calcium Level 7.3L, Phosphorus Level 1.7L, Magnesium Level 1.9 06/21/22 00:41: Glucometer 129H 06/21/22 04:30: Sodium Level 140, Potassium Level 2.5*L, Chloride Level 117H, Carbon Dioxide Level 16L, Anion Gap 7, Blood Urea Nitrogen 17, Creatinine 0.74, Estimat Glomerular Filtration Rate 107, BUN/Creatinine Ratio 23, Glucose Level 120H, Calcium Level 7.4L, Phosphorus Level 2.0L, Magnesium Level 2.0, White Blood Count 7.3, Red Blood Count 2.64L, Hemoglobin 6.9*L, Hematocrit 21L, Mean Corpuscular Volume 80, Mean Corpuscular Hemoglobin 26, Mean Corpuscular Hemoglobin Concent 33, Red Cell Distribution Width 16.2H, Platelet Count 164, Mean Platelet Volume 10.1, Immature Granulocyte % (Auto) 4, Neutrophils (%) (Auto) 77H, Lymphocytes (%) (Auto) 12, Monocytes (%) (Auto) 6, Eosinophils (%) (Auto) 1, Basophils (%) (Auto) 0, Neutrophils # (Auto) 5.6, Lymphocytes # (Auto) 0.9L, Monocytes # (Auto) 0.5, Eosinophils # (Auto) 0.0, Basophils # (Auto) 0.0, Immature Granulocyte # (Auto) 0.3H, Corrected Calcium 8.8, Total Bilirubin 0.8, Aspartate Amino Transf (AST/SGOT) 22, Alanine Aminotransferase (ALT/SGPT) 22, Alkaline Phosphatase 59, Total Protein 4.7L, Albumin 2.2L 06/21/22 05:34: Glucometer 108 06/21/22 11:28: Glucometer 97 Microbiology 06/17/22 Blood Culture - Preliminary, Resulted Anaerobic Gram Positive [place] 06/17/22 Gram Stain - Final, Complete 06/17/22 Sputum Culture - Final, Complete Escherichia coli Usual upper respiratory paramjit Assessment/Plan Assessment/Plan Assess & Plan/Chief Complaint s/p exploratory laparotomy, henriquez's pouch formation, 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 correct electrolytes. ambulate. give one unit PRBC. advance diet. ok to transfer to floor. VIJAY CANNON MD Jun 21, 2022 14:55
[2022-06-21 15:06] VITALS: BP 171/117
[2022-06-21 17:42] LABS: HEMOGLOBIN 8.8 g/dL (13.3-17.7)
[2022-06-21 17:55] LABS: POTASSIUM 2.7 MMOL/L (3.6-5.0)
[2022-06-21 17:56] LABS: CALCIUM 7.5 MG/DL (8.5-10.1)
[2022-06-21 18:01] LABS: CREATININE SERUM 0.71 MG/DL (0.60-1.30)
--- NOTE | 2022-06-21 18:30 | Progress Note - Hospitalist ---
Subjective HPI/CC On Admission Date Seen by Provider: Jun 21, 2022 Time Seen by Provider: 10:15 Pt is a 56yoCM with a PMH of HTN, Chronic pain, rectal cancer who presented to the Er duet abdominal pain. He states he has not had a BM for 2 weeks and has no longer been passing gas. His abdomen was becoming more and more distended as w ell. He has had multiple abdominal surgeries in the past for rectal carcinoma and also cystectomy and ileal conduit. CT showed possible obstructive process and severe constipation. He was admitted to surgery for further management and I am consulted for medical management. His only complaint this morning is abd pain. He denies any resultant BM or gas from his enemas. Subjective/Events-last exam He is feeling ok today. His pain is better now. He is still having some serosanguinous output from his drains. He is having output from his colostomy. Focused Exam Lactate Level 06/18/22 19:58: Lactic Acid Level 2.07*H Objective Exam Vital Signs Vital Signs Date Time Temp Pulse Resp B/P (MAP) Pulse Ox O2 Delivery O2 Flow Rate FiO2 06/21/22 17:00 75 25 166/111 (129) 97 Room Air 06/21/22 15:06 36.2 06/20/22 05:00 06/19/22 10:32 30 Capillary Refill : Less Than 3 Seconds General Appearance: No Apparent Distress, Obese Respiratory: No Respiratory Distress, Decreased Breath Sounds Cardiovascular: Regular Rate, Rhythm, No Murmur Gastrointestinal: Normal Bowel Sounds, Soft, Tenderness, Other (colostomy and urostomy appear well, JOSEF drains with serosanguinous output) Extremity: Normal Inspection, Pedal Edema Neurologic/Psychiatric: Alert, Motor Weakness Results/Procedures Lab Laboratory Tests 06/20/22 23:58 06/21/22 04:30 06/21/22 17:15 Patient resulted labs reviewed. Imaging: Reviewed Imaging Report Assessment/Plan Assessment and Plan Assess & Plan/Chief Complaint Colorectal stricture with obstruction Abdominal compartment syndrome History of rectal cancer Postoperative anemia Management per primary S/p ex lap with henriquez's pouch, end colostomy on 06/17 TeleICU following Hgb trending down, 6.9 today Transfuse 1 unit PRBC HTN IV antihypertensives as needed Appears to be due to pain Hypokalemia Monitor and replace as needed Shock- resolved Postoperative respiratory insufficiency- resolved Endotracheally intubated- resolved Critical Care Critically Ill Patient Diagnosis/Problems Diagnosis/Problems (1) Colonic obstruction Status: Acute (2) Colonic stricture Status: Acute (3) Abdominal compartment syndrome Status: Acute Qualifiers: Compartment syndrome type: non-traumatic Qualified Codes: M79.A3 - Nontraumatic compartment syndrome of abdomen (4) Postoperative anemia Status: Acute (5) History of rectal cancer Status: Chronic (6) Hypokalemia Status: Acute (7) Shock Status: Resolved Resolution Date/Time: 06/20/22 @ 17:58 (8) Acute postoperative respiratory insufficiency Status: Resolved (9) Endotracheally intubated Status: Resolved Resolution Date/Time: 06/20/22 @ 17:58 RACHAEL SHELDON MD Jun 21, 2022 18:30
[2022-06-21 19:38] VITALS: BP 167/90
[2022-06-21] MEDS: FLUCONAZOLE 100 MG/50 ML 50 ML IV SCH (20:14)
[2022-06-21 20:28] VITALS: BP 159/85
[2022-06-21 23:30] VITALS: BP 152/85
[2022-06-21] MEDS: PROMETHAZINE INJ 25 MG/ML (PHENERGAN) AMP IVP PRN (23:50)
[2022-06-22] VITALS (9 sets, daily range): BP systolic 146–174; BP diastolic 78–97
[2022-06-22] MEDS: NS IV 1000 ML 1,000 ML IV SCH ×3 (00:45→16:23)
[2022-06-22] MEDS: POTASSIUM CL 10MEQ/50ML IVPB 50 ML IV SCH ×10 (01:03→23:04)
[2022-06-22] MEDS: fentaNYL INJ 100 MCG/2 ML AMP IVP PRN ×7 (01:04→21:04)
[2022-06-22] MEDS: LABETALOL HCL 20 MG/4 ML VIAL IV PRN ×2 (03:37→06:17)
[2022-06-22] MEDS: inSUlin ASPART (NovoLOG) 1 UNIT/0.01 ML (CHARGE PER UNIT) SC SCH ×2 (06:00→12:27)
[2022-06-22 06:16] LABS: BASOPHILS % (AUTO) 0 % (0-10); EOSINOPHILS # (AUTO) 0.1 10^3/uL (0.0-0.3); EOSINOPHILS % (AUTO) 1 % (0-10); HEMATOCRIT 25 % (40-54); HEMOGLOBIN 8.3 g/dL (13.3-17.7); LYMPHOCYTES # (AUTO) 1.3 10^3/uL (1.0-4.0); LYMPHOCYTES % (AUTO) 13 % (12-44); MEAN CORPUSCULAR HEMOGLOBIN 26 pg (25-34); MEAN CORPUSCULAR HGB CONC 34 g/dL (32-36); MEAN CORPUSCULAR VOLUME 79 fL (80-99); MEAN PLATELET VOLUME 10.2 fL (9.0-12.2); MONOCYTES # (AUTO) 0.7 10^3/uL (0.0-1.0); MONOCYTES % (AUTO) 7 % (0-12); NEUTROPHILS % (AUTO) 71 % (42-75); PLATELET COUNT 197 10^3/uL (130-400); WHITE BLOOD COUNT 9.8 10^3/uL (4.3-11.0)
[2022-06-22 06:27] LABS: ALBUMIN 2.4 GM/DL (3.2-4.5)
[2022-06-22 06:28] LABS: CALCIUM 7.6 MG/DL (8.5-10.1)
[2022-06-22 06:30] LABS: POTASSIUM 2.5 MMOL/L (3.6-5.0); SMEAR SCAN COMMENT YES; TOTAL PROTEIN 5.2 GM/DL (6.4-8.2)
[2022-06-22 06:33] LABS: CREATININE SERUM 0.68 MG/DL (0.60-1.30); PHOSPHORUS 1.8 MG/DL (2.3-4.7)
[2022-06-22 06:36] LABS: MAGNESIUM 1.7 MG/DL (1.6-2.4)
[2022-06-22] MEDS: PANTOPRAZOLE 40 MG (PROTONIX) VIAL IV SCH ×2 (07:55→19:55)
--- NOTE | 2022-06-22 09:26 | Occupational Ther Daily Note ---
OT Current Status-Daily Note Subjective Pt in bed, alert. Pt agrees to therapy. Pt reports he is in a lot of pain, no rating. Pt B/P is 160/84, nursing is aware. Mental Status/Objective Patient Orientation: Person, Place, Time, Situation Attachments: Colostomy/Ileostomy, Drains, IV, Telemetry ADL-Treatment Pt was provided a breakfast tray but declined. Agrees to complete oral care in bed due to high BP. Pt completes task by self after set up. He was provided warm cloth to clean face. Pt is able to sequence task and complete without VC's or assist. Pt takes an extended amount of time to complete task due to fatigue and pain. In bed post tx, phone and call light in reach. All needs met. Therapy Code Descriptions/Definitions Functional [place] Measure: 0=Not Assessed/NA 4=Minimal Assistance 1=Total Assistance 5=Supervision or Setup 2=Maximal Assistance 6=Modified [place] 3=Moderate Assistance 7=Complete IndependenceSCALE: Activities may be completed with or without assistive devices. 0-Wqozjelcfp-cpaxoqv completes the activity by him/herself with no assistance from a helper. 5-Set-up or Clean-up Assistance-helper sets up or cleans up; patient completes activity. [place] assists only prior to or following the activity. 4-Supervision or Touching Assistance-helper provides verbal cues and/or zeb manda/steadying and/or contact guard assistance as patient completes activity. Assistance may be provided throughout the activity or intermittently. 3-Partial/Moderate Assistance-helper does LESS THAN HALF the effort. [place] lifts, holds or supports trunk or limbs, but provides less than half the effort. 2-Substantial/Maximal Assistance-helper does MORE THAN HALF the effort. [place] lifts or holds trunk or limbs and provides more than half the effort. 2-Wpqvvobfq-dtldbb does ALL the effort. Patient does none of the effort to complete the activity. Or, the assistance of 2 or more helpers is required for the patient to complete the activity. If activity was not attempted, code reason: 7-Patient Refused. 9-Not Applicable-not attempted and the patient did not perform the activity before the current illness, exacerbation or injury. 10-Not Attempted due to Environmental Limitations-(lack of equipment, weather restraints, etc.). 88-Not Attempted due to Medical Conditions or Safety Concerns. Oral Hygiene (QC): 5 OT Treasury Agent Goals Senior Living Goals Time Frame: Jul 08, 2022 Eating (QC): 5 Oral Hygiene (QC): 5 Toileting Hygiene (QC): 4 Shower/Bathe Self (QC): 3 Upper Body Dressing (QC): 4 Lower Body Dressing (QC): 3 On/Off Footwear (QC): 2 Additional Goals: 1-Demonstrate ADL Tasks, 2-Verbalize Understanding, 3- ImproveStrength/[place] 1=Demonstrate adherence to instructed precautions during ADL tasks. 2=Patient will verbalize/demonstrate understanding of assistive devices/modifications for ADL. 3=Patient will improve strength/tolerance for activity to enable patient to perform ADL's. OT Education/Plan Problem List/Assessment Assessment: Decreased Activ Tolerance, Impaired Self-Care Skills Discharge Recommendations Plan/Recommendations: Continue POC Treatment Plan/Plan of Care Patient would benefit from OT for education, treatment and training to promote independence in ADL's, mobility, safety and/or upper extremity function for ADL's. Plan of Care: ADL Retraining, Functional Mobility, UE Funct Exercise/Act Treatment Duration: Jul 08, 2022 Frequency: 3 times per week (3-5 times per week) Estimated Hrs Per Day: .25 hour per day Agreement: Yes Rehab Potential: Fair Time Start Time: 08:56 Stop Time: 09:09 DATE: Jun 22, 2022 Total Time Billed (hr/min): 13 Billed Treatment Time 1 visit ADL (13 min) DOMINIQUE MCCOY Jun 22, 2022 09:26
[2022-06-22] MEDS ORDERED: POTASSIUM CL 10MEQ/50ML IVPB 50 ML IV ONE (11:30)
--- NOTE | 2022-06-22 11:30 | Physical Therapy Daily Note ---
PT Daily Note-Current Subjective Pt laying Supine in bed upon arrival. Pt asked for pain medicine but too early for Lortab but could have Fentanyl injection. Pain Section J - Health Conditions 1. Rarely or not at all 2. Occasionally 3. Frequently 4. Almost constantly 8. Unable to answer Pain Effect on Sleep: 1 Pain Interference with Therapy: 1 Pain Interference w/Day-to-Day: 1 Mental Status Patient Orientation: Person, Place, Situation Attachments: Colostomy/Ileostomy, Drains Transfers SCALE: Activities may be completed with or without assistive devices. 0-Sidtttwqru-hzvqdkm completes the activity by him/herself with no assistance from a helper. 5-Set-up or Clean-up Assistance-helper sets up or cleans up; patient completes activity. [place] assists only prior to or following the activity. 4-Supervision or Touching Assistance-helper provides verbal cues and/or touching/steadying and/or contact guard assistance as patient completes activity. Assistance may be provided throughout the activity or intermittently. 3-Partial/Moderate Assistance-helper does LESS THAN HALF the effort. [place] lifts, holds or supports trunk or limbs, but provides less than half the effort. 2-Substantial/Maximal Assistance-helper does MORE THAN HALF the effort. [place] lifts or holds trunk or limbs and provides more than half the effort. 7-Nnyaraekr-xyhqzb does ALL the effort. Patient does none of the effort to complete the activity. Or, the assistance of 2 or more helpers is required for the patient to complete the activity. If activity was not attempted, code reason: 7-Patient Refused. 9-Not Applicable-not attempted and the patient did not perform the activity before the current illness, exacerbation or injury. 10-Not Attempted due to Environmental Limitations-(lack of equipment, weather restraints, etc.). 88-Not Attempted due to Medical Conditions or Safety Concerns. Sit to Lying (QC): 1 Lying to Sitting/Side of Bed(Q: 1 Sit to Stand (QC): 3 Weight Bearing Right Lower Extremity: Right Full Weight Bearing Left Lower Extremity: Left Full Weight Bearing Treatments TF to EOB then Nurse give Lovenox & Fentanyl shots before pt stands. Pt stands for approx. 30 sec. before needing to sit back down. TF to Supine in bed, repositioned to comfort. All needs met, call light in hand. Assessment Current Status: Fair Progress Pt continues to demonstrate difficulty with TF and standing for very long at a t arabella. PT Short Term Goals Short Term Goals Time Frame: Jul 02, 2022 Roll Left & Right: 4 Sit to lyin Lying to sitting on side of be: 4 Sit to stand: 4 Chair/aca-os-ssarh transfer: 4 Walk 10 feet: 3 Walk 50 feet with two turns: 3 PT Detention Goals Cap Sewer Goals PT Cap Sewer Goals Time Frame: Jul 16, 2022 Roll Left & Right (QC): 6 Sit to Lying (QC): 6 Lying-Sitting on Side/Bed(QC): 6 Sit to Stand (QC): 6 Chair/Rat-rd-[place] Xfer(QC): 6 Toilet Transfer (QC): 6 Car Transfer (QC): 4 Does the Patient Walk: Yes Walk 10 feet (QC): 4 Walk 50ft with 2 Turns (QC): 4 Walk 150 ft (QC): 4 1 Step (curb) (QC): 3 4 Steps (QC): 3 PT Plan Problem List Problem List: Activity Tolerance, Functional Strength Treatment/Plan Treatment Plan: Continue Plan of Care Treatment Plan: Bed Mobility, Education, Functional Activity [place], Functional Strength, Group Therapy, Gait, Safety, Therapeutic Exercise, Transfers Treatment Duration: Aug 13, 2022 Frequency: 6 times per week Estimated Hrs Per Day: .25 hour per day Patient and/or Family Agrees t: Yes Safety Risks/Education Patient Education: Transfer Techniques, Correct Positioning, Safety Issues Teaching Recipient: Patient Teaching Methods: Discussion Response to Teaching: Verbalize Understanding Time Time In: 1020 Time Out: 1045 DATE: Jun 22, 2022 Total Billed Treatment Time: 25 Total Billed Treatment 1, FA x2 (25m) LARISSA LARSEN PTA Jun 22, 2022 11:30
--- NOTE | 2022-06-22 11:45 | Physical Therapy Daily Note ---
PT Daily Note-Current Subjective Patient in bed pre-tx, reports pain 10/10 in abdomen, agrees to PT exercises in bed. Pain Section J - Health Conditions 1. Rarely or not at all 2. Occasionally 3. Frequently 4. Almost constantly 8. Unable to answer Pain Effect on Sleep: 1 Pain Interference with Therapy: 1 Pain Interference w/Day-to-Day: 1 Mental Status Patient Orientation: Person, Place, Situation, Mumbles Attachments: Colostomy/Ileostomy, Suprapubic Catheter, IV Transfers SCALE: Activities may be completed with or without assistive devices. 2-Sbylbnebfa-eqcogtf completes the activity by him/herself with no assistance from a helper. 5-Set-up or Clean-up Assistance-helper sets up or cleans up; patient completes activity. [place] assists only prior to or following the activity. 4-Supervision or Touching Assistance-helper provides verbal cues and/or touching/steadying and/or contact guard assistance as patient completes activi ty. Assistance may be provided throughout the activity or intermittently. 3-Partial/Moderate Assistance-helper does LESS THAN HALF the effort. [place] lifts, holds or supports trunk or limbs, but provides less than half the effort. 2-Substantial/Maximal Assistance-helper does MORE THAN HALF the effort. [place] lifts or holds trunk or limbs and provides more than half the effort. 1-Twmgzgnxg-hypaok does ALL the effort. Patient does none of the effort to complete the activity. Or, the assistance of 2 or more helpers is required for the patient to complete the activity. If activity was not attempted, code reason: 7-Patient Refused. 9-Not Applicable-not attempted and the patient did not perform the activity before the current illness, exacerbation or injury. 10-Not Attempted due to Environmental Limitations-(lack of equipment, weather restraints, etc.). 88-Not Attempted due to Medical Conditions or Safety Concerns. Weight Bearing Right Lower Extremity: Right Full Weight Bearing Left Lower Extremity: Left Full Weight Bearing Exercises Supine Ex: Ankle pumps, Quad Set, Heel Slides, Short Arc Quads Supine Reps: 10 Treatments LE Strengthening Assessment Current Status: Fair Progress Patient moved slowly through the exercises requiring verbal and tactile cueing. Patient in bed post-tx with nurse call in reach, tray, phone, nurse in room, all needs met. PT Short Term Goals Short Term Goals Time Frame: Jul 02, 2022 Roll Left & Right: 4 Sit to lyin Lying to sitting on side of be: 4 Sit to stand: 4 Chair/vfj-zg-atvpg transfer: 4 Walk 10 feet: 3 Walk 50 feet with two turns: 3 PT Skilled Nursing Goals Spray Booth Operator Goals PT Skilled Nursing Goals Time Frame: Jul 16, 2022 Roll Left & Right (QC): 6 Sit to Lying (QC): 6 Lying-Sitting on Side/Bed(QC): 6 Sit to Stand (QC): 6 Chair/Hyt-fe-Jdwio Xfer(QC): 6 Toilet Transfer (QC): 6 Car Transfer (QC): 4 Does the Patient Walk: Yes Walk 10 feet (QC): 4 Walk 50ft with 2 Turns (QC): 4 Walk 150 ft (QC): 4 1 Step (curb) (QC): 3 4 Steps (QC): 3 PT Plan Problem List Problem List: Activity Tolerance, Functional Strength, Safety, Balance, Gait, Transfer, Bed Mobility, ROM Treatment/Plan Treatment Plan: Continue Plan of Care Treatment Plan: Bed Mobility, Education, Functional Activity Fernando, Functional Strength, Group Therapy, Gait, Safety, Therapeutic Exercise, Transfers Treatment Duration: Aug 13, 2022 Frequency: 6 times per week Estimated Hrs Per Day: .25 hour per day Patient and/or Family Agrees t: Yes Safety Risks/Education Patient Education: Correct Positioning, Safety Issues Teaching Recipient: Patient Teaching Methods: Demonstration, Discussion Response to Teaching: Reinforcement Needed Time Time In: 1015 Time Out: 1025 DATE: Jun 22, 2022 Total Billed Treatment Time: 10 Total Billed Treatment 1 visit EX 10' PEREZ HARLEY PT Jun 22, 2022 11:45
[2022-06-22] MEDS ORDERED: HYPOCHLOROUS ACID/NaCl (VASHE) 250 ML IR PRN (16:30)
--- NOTE | 2022-06-22 16:33 | Progress Note - Hospitalist ---
Subjective HPI/CC On Admission Date Seen by Provider: Jun 22, 2022 Time Seen by Provider: 10:25 Pt is a 56yoCM with a PMH of HTN, Chronic pain, rectal cancer who presented to the Er duet abdominal pain. He states he has not had a BM for 2 weeks and has no longer been passing gas. His abdomen was becoming more and more distended as w ell. He has had multiple abdominal surgeries in the past for rectal carcinoma and also cystectomy and ileal conduit. CT showed possible obstructive process and severe constipation. He was admitted to surgery for further management and I am consulted for medical management. His only complaint this morning is abd pain. He denies any resultant BM or gas from his enemas. Subjective/Events-last exam He is still having pain. The fentanyl does not seem to be lasting long enough. He is working with PT. Objective Exam Vital Signs Vital Signs Date Time Temp Pulse Resp B/P (MAP) Pulse Ox O2 Delivery O2 Flow Rate FiO2 06/22/22 15:52 36.4 83 18 158/78 (104) 95 Room Air 06/20/22 05:00 06/19/22 10:32 30 Capillary Refill : Less Than 3 Seconds General Appearance: No Apparent Distress, Obese Respiratory: Lungs Clear, No Respiratory Distress Cardiovascular: Regular Rate, Rhythm, No Murmur Gastrointestinal: Normal Bowel Sounds, Soft Extremity: Normal Inspection, No Pedal Edema Neurologic/Psychiatric: Alert, Depressed Affect Results/Procedures Lab Laboratory Tests 06/21/22 17:15 06/22/22 06:08 Patient resulted labs reviewed. Imaging: Reviewed Imaging Report Assessment/Plan Assessment and Plan Assess & Plan/Chief Complaint Colorectal stricture with obstruction Abdominal compartment syndrome History of rectal cancer Postoperative anemia Management per primary S/p ex lap with henriquez's pouch, end colostomy on 06/17 Hgb relatively stable, 8.3 this morning s/p 1 unit PRBC HTN BP remains elevated IV antihypertensives as needed Begin Lisinopril Hypokalemia Monitor and replace as needed Debility PT/OT Previously independent IRF evaluation requested Shock- resolved Postoperative respiratory insufficiency- resolved Endotracheally intubated- resolved Critical Care Critically Ill Patient Diagnosis/Problems Diagnosis/Problems (1) Colonic obstruction Status: Acute (2) Colonic stricture Status: Acute (3) Abdominal compartment syndrome Status: Acute Qualifiers: Compartment syndrome type: non-traumatic Qualified Codes: M79.A3 - Nontraumatic compartment syndrome of abdomen (4) Postoperative anemia Status: Acute (5) History of rectal cancer Status: Chronic (6) Hypokalemia Status: Acute (7) Shock Status: Resolved Resolution Date/Time: 06/20/22 @ 17:58 (8) Acute postoperative respiratory insufficiency Status: Resolved (9) Endotracheally intubated Status: Resolved Resolution Date/Time: 06/20/22 @ 17:58 RACHAEL SHELDON MD Jun 22, 2022 16:33
[2022-06-22] MEDS ORDERED: lisINopril 40 MG (PRINIVIL) TABLET PO ONE (16:45)
[2022-06-22] MEDS ORDERED: lisINopril 20 MG (PRINIVIL) TABLET PO NR (16:45)
[2022-06-22] MEDS: HYDROmorphone 2 MG/ML VIAL (DILAUDID) IV PRN (18:22)
[2022-06-22] MEDS ORDERED: POT PHOS/NA PHOS (K-PHOS NEUTRAL) PO NR (19:15)
[2022-06-22] MEDS: MAGNESIUM 1 GM/100 ML IVPB 100 ML IV SCH ×2 (19:56→21:00)
[2022-06-22] MEDS ORDERED: POTASSIUM CL 10MEQ/50ML IVPB 100 ML IV ONE (20:56)
[2022-06-23] VITALS (7 sets, daily range): BP systolic 128–169; BP diastolic 82–100
[2022-06-23] MEDS: POTASSIUM CL 10MEQ/50ML IVPB 50 ML IV SCH ×8 (01:15→22:56)
[2022-06-23] MEDS: fentaNYL INJ 100 MCG/2 ML AMP IVP PRN ×6 (03:11→21:56)
[2022-06-23 05:41] LABS: BASOPHILS % (AUTO) 0 % (0-10); EOSINOPHILS # (AUTO) 0.1 10^3/uL (0.0-0.3); EOSINOPHILS % (AUTO) 1 % (0-10); HEMATOCRIT 28 % (40-54); HEMOGLOBIN 9.4 g/dL (13.3-17.7); LYMPHOCYTES # (AUTO) 1.5 10^3/uL (1.0-4.0); LYMPHOCYTES % (AUTO) 11 % (12-44); MEAN CORPUSCULAR HEMOGLOBIN 26 pg (25-34); MEAN CORPUSCULAR HGB CONC 34 g/dL (32-36); MEAN CORPUSCULAR VOLUME 77 fL (80-99); MEAN PLATELET VOLUME 10.1 fL (9.0-12.2); MONOCYTES # (AUTO) 0.8 10^3/uL (0.0-1.0); MONOCYTES % (AUTO) 6 % (0-12); NEUTROPHILS # (AUTO) 9.3 10^3/uL (1.8-7.8); NEUTROPHILS % (AUTO) 71 % (42-75); PLATELET COUNT 244 10^3/uL (130-400); WHITE BLOOD COUNT 13.1 10^3/uL (4.3-11.0)
[2022-06-23 05:54] LABS: ALBUMIN 2.6 GM/DL (3.2-4.5); POTASSIUM 2.6 MMOL/L (3.6-5.0)
[2022-06-23 05:55] LABS: CALCIUM 7.9 MG/DL (8.5-10.1)
[2022-06-23 05:57] LABS: TOTAL PROTEIN 5.6 GM/DL (6.4-8.2)
[2022-06-23 05:58] LABS: BILIRUBIN,TOTAL 1.1 MG/DL (0.1-1.0)
[2022-06-23 06:00] LABS: CREATININE SERUM 0.66 MG/DL (0.60-1.30); PHOSPHORUS 2.3 MG/DL (2.3-4.7)
[2022-06-23] MEDS: MAGNESIUM 1 GM/100 ML IVPB 100 ML IV SCH (06:00)
[2022-06-23] MEDS: KCL 20 MEQ TAB (K-DUR) PO SCH (06:00)
[2022-06-23 06:03] LABS: MAGNESIUM 1.8 MG/DL (1.6-2.4)
[2022-06-23] MEDS ORDERED: KCL 20 MEQ TAB (K-DUR) PO ONE ×3 (08:00→12:00)
[2022-06-23] MEDS: lisINopril 20 MG (PRINIVIL) TABLET PO SCH (08:05)
[2022-06-23] MEDS: PANTOPRAZOLE 40 MG (PROTONIX) VIAL IV SCH ×2 (08:05→19:51)
[2022-06-23] MEDS: HYDROmorphone 2 MG/ML VIAL (DILAUDID) IV PRN (08:10)
[2022-06-23] MEDS: SPIRONOLACTONE 25 MG (ALDACTONE) TAB PO SCH (08:10)
[2022-06-23] MEDS ORDERED: lisINopril 40 MG (PRINIVIL) TABLET PO SCH (09:00)
--- NOTE | 2022-06-23 10:00 | Wound Care Assessment ---
Wound Care Assessment Date Seen by Provider: Jun 23, 2022 Time Seen by Provider: 09:10 Chief Complaint Abdominal wound HPI Mr. Ramos is a 56 year old male with a complicated past medical and surgical history who is POD#6 from exploratory laparotomy, lysis of adhesions, Reyes's pouch creation, end-colostomy, and placement left subclavian central venous catheter with Dr. Aguilar. He initially presented to the ED on JUN 07 for abdominal pain. He has a history of a simple cystectomy with ileal conduit for urinary incontinence and left ureteral stricture following radiation for his rectal cancer in [address] Link. In 2012 he had resection of the rectal carcinoma with Dr. Cook with primary anastomosis. He progressed to needing a colonoscopy and surgery as previously mentioned on JUL [address] Aguilar. Per the operative note, a primary closure was attempted. Wound care was consulted to place a wound-vac over his dehisced abdominal wound today. Today he has abdominal pain that is controlled with medicine. He denies fevers or chills but has nausea and vomiting. Denies shortness of breath, trouble breathing, or chest pain. Past Medical History: Admits Cancer, Treaments; Denies Diabetes Type I, Denies Diabetes Type II HTN Smoking Status: Never a Smoker Recreational Drug Use: No Alcohol Use: Denies Use Review of Systems General: No Chills; Fatigue Pulmonary: No Dyspnea, No Cough Cardiovascular: No: Chest Pain, Palpitations Gastrointestinal: Nausea, Vomiting, Abdominal Pain Exam Vital Signs Date Time Temp Pulse Resp B/P (MAP) Pulse Ox O2 Delivery O2 Flow Rate FiO2 06/23/22 07:57 35.3 91 18 145/92 (109) 95 Room Air 06/20/22 05:00 06/19/22 10:32 30 Capillary Refill : Less Than 3 Seconds General Appearance: WD/WN, no apparent distress (Patient given pain medicine during wound-vac application and was resting comfortably) HEENT: PERRL/EOMI; No pale conjunctivae (R), No pale conjunctivae (L) Cardiovascular: normal peripheral pulses, regular rate, rhythm Respiratory: chest non-tender, lungs clear, normal breath sounds, no respiratory distress, no accessory muscle use Gastrointestinal: tenderness, other (Open abdominal wound with wound-vac placed) Neurologic/Psychiatric: alert (Alert and oriented before medicine was given for wound-vac. Somnolent after medicine.), normal mood/affect, oriented x 3 Patient has an open surgical wound on his ventral abdomen from exploratory laparotomy on JUL 07. The wound measures 16.7 x 8.5 x 5.3. The primary etiology is surgical. There is 0.5 cm of undermining at the 2-4 o'clock margin at the inferior aspect of the wound. There is no tunneling. The epithelialization is none. Necrosis is large and slough. Granulation is none. Drainage is large and serosanguineous. There is what looks like exposed fascia and PDS suture at the inferior half of the wound. A wound-vac was placed with white foam at the inferior margin of the wound. Results Laboratory Tests 06/22/22 12:21: Glucometer 107 06/22/22 17:05: Glucometer 89 06/22/22 19:58: Potassium Level 2.4*L 06/23/22 05:33: Potassium Level 2.6L, White Blood Count 13.1H, Red Blood Count 3.63L, Hemoglobin 9.4L, Hematocrit 28L, Mean Corpuscular Volume 77L, Mean Corpuscular Hemoglobin 26, Mean Corpuscular Hemoglobin Concent 34, Red Cell Distribution Width 15.7H, Platelet Count 244, Mean Platelet Volume 10.1, Immature Granulocyte % (Auto) 11, Neutrophils (%) (Auto) 71, Lymphocytes (%) (Auto) 11L, Monocytes (%) (Auto) 6, Eosinophils (%) (Auto) 1, Basophils (%) (Auto) 0, Neutrophils # (Auto) 9.3H, Lymphocytes # (Auto) 1.5, Monocytes # (Auto) 0.8, Eosinophils # (Auto) 0.1, Basophils # (Auto) 0.0, Immature Granulocyte # (Auto) 1.4H, Sodium Level 130L, Chloride Level 102, Carbon Dioxide Level 17L, Anion Gap 11, Blood Urea Nitrogen 9, Creatinine 0.66, Estimat Glomerular Filtration Rate 111, BUN/Creatinine Ratio 14, Glucose Level 105, Calcium Level 7.9L, Corrected Calcium 9.0, Phosphorus Level 2.3, Magnesium Level 1.8, Total Bilirubin 1.1H, Aspartate Amino Transf (AST/SGOT) 32, Alanine Aminotransferase (ALT/SGPT) 33, Alkaline Phosphatase 83, Total Protein 5.6L, Albumin 2.6L Microbiology 06/17/22 Blood Culture - Preliminary, Resulted Anaerobic Gram Positive [place] Culture In Progress 06/17/22 Gram Stain - Final, Complete 06/17/22 Sputum Culture - Final, Complete Escherichia coli Usual upper respiratory paramjit Assessment/Plan/Dx Open abdominal wound Surgical etiology s/p exploratory laparotomy on JUL [address] Aguilar Abdominal Compartment Syndrome History of rectal cancer with radiation Leukocytosis Post-op anemia Hyponatremia Hypokalemia 1. Continue treatment recommendations per primary team 2. Wound-vac placed over open abdominal wound with white foam over exposed underlying structures and sutures. One piece of white foam was used. The wound- vac was placed to 125 mmHg suction. Plan for dressing changes twice weekly while admitted. Will plan for continued follow up as outpatient upon d/c home. 3. Continue urostomy and colostomy care as done previously 4. Will plan for follow-up in wound care clinic for wound-vac changes. Consider possible home health needs. Supervisory-Addendum Brief Verification & Attestation Participated in pt care: history, MDM, physical Personally performed: exam Care discussed with: Medical Student Procedures: n/a Results interpretation: Verified all documentation GERHARD Russell Jun 23, 2022 10:00 MEGHNA RODRIGUEZ MD Jun 23, 2022 13:01
--- NOTE | 2022-06-23 10:30 | Occupational Ther Daily Note ---
OT Current Status-Daily Note Subjective Pt in bed, alert. Pt agrees to therapy. Nursing in room applying wound vac. Mental Status/Objective Patient Orientation: Person, Place, Time, Situation Attachments: Colostomy/Ileostomy, Drains, [place] Catheter, IV, Oxygen, Other-See Comments (wound vac) ADL-Treatment Therapy Code Descriptions/Definitions Functional [place] Measure: 0=Not Assessed/NA 4=Minimal Assistance 1=Total Assistance 5=Supervision or Setup 2=Maximal Assistance 6=Modified [place] 3=Moderate Assistance 7=Complete IndependenceSCALE: Activities may be completed with or without assistive devices. 1-Kewlbuacsv-hlchahw completes the activity by him/herself with no assistance from a helper. 5-Set-up or Clean-up Assistance-helper sets up or cleans up; patient completes activity. [place] assists only prior to or following the activity. 4-Supervision or Touching Assistance-helper provides verbal cues and/or touching/steadying and/or contact guard assistance as patient completes activity. Assistance may be provided throughout the activity or intermittently. 3-Partial/Moderate Assistance-helper does LESS THAN HALF the effort. [place] lifts, holds or supports trunk or limbs, but provides less than half the effort. 2-Substantial/Maximal Assistance-helper does MORE THAN HALF the effort. [place] lifts or holds trunk or limbs and provides more than half the effort. 2-Azwbawzqo-tenrdo does ALL the effort. Patient does none of the effort to complete the activity. Or, the assistance of 2 or more helpers is required for the patient to complete the activity. If activity was not attempted, code reason: 7-Patient Refused. 9-Not Applicable-not attempted and the patient did not perform the activity before the current illness, exacerbation or injury. 10-Not Attempted due to Environmental Limitations-(lack of equipment, weather restraints, etc.). 88-Not Attempted due to Medical Conditions or Safety Concerns. Other Treatment Wound care nrsg in room applying wound vac. Pt requires assistance for all bed mobility. Pt somnolent due to pain medication. Pt in bed post tx, phone and call light in reach. Nursing remained in room. All needs met. OT Usp Goals Audio Video Technician Goals Time Frame: Jul 08, 2022 Eating (QC): 5 Oral Hygiene (QC): 5 Toileting Hygiene (QC): 4 Shower/Bathe Self (QC): 3 Upper Body Dressing (QC): 4 Lower Body Dressing (QC): 3 On/Off Footwear (QC): 2 Additional Goals: 1-Demonstrate ADL Tasks, 2-Verbalize Understanding, 3-ImproveStrength/[place] 1=Demonstrate adherence to instructed precautions during ADL tasks. 2=Patient will verbalize/demonstrate understanding of assistive devices/modifications for ADL. 3=Patient will improve strength/tolerance for activity to enable patient to perform ADL's. OT Education/Plan Problem List/Assessment Assessment: Decreased Activ Tolerance, Impaired Self-Care Skills Discharge Recommendations Plan/Recommendations: Continue POC Treatment Plan/Plan of Care Patient would benefit from OT for education, treatment and training to promote independence in ADL's, mobility, safety and/or upper extremity function for ADL's. Plan of Care: ADL Retraining, Functional Mobility, UE Funct Exercise/Act Treatment Duration: Jul 08, 2022 Frequency: 3 times per week (3-5 times per week) Estimated Hrs Per Day: .25 hour per day Agreement: Yes Rehab Potential: Fair Time Start Time: 09:15 Stop Time: 09:49 DATE: Jun 23, 2022 Total Time Billed (hr/min): 34 Billed Treatment Time 1 visit FA 2 (34 min) DOMINIQUE MCCOY Jun 23, 2022 10:30
--- NOTE | 2022-06-23 10:33 | Physical Therapy Daily Note ---
PT Daily Note-Current Subjective Pt found lying in bed upon entry. Does not rate or report any change in pain. Agreed to PT. Pain Section J - Health Conditions 1. Rarely or not at all 2. Occasionally 3. Frequently 4. Almost constantly 8. Unable to answer Pain Effect on Sleep: 1 Pain Interference with Therapy: 1 Pain Interference w/Day-to-Day: 1 Mental Status Patient Orientation: Person, Place, Time, [place] Attachments: Colostomy/Ileostomy, Suprapubic Catheter, Drains, IV Transfers SCALE: Activities may be completed with or without assistive devices. 3-Muwhbmgwzf-gytxbnb completes the activity by him/herself with no assistance from a helper. 5-Set-up or Clean-up Assistance-helper sets up or cleans up; patient completes activity. [place] assists only prior to or following the activity. 4-Supervision or Touching Assistance-helper provides verbal cues and/or touching/steadying and/or contact guard assistance as patient completes activity. Assistance may be provided throughout the activity or intermittently. 3-Partial/Moderate Assistance-helper does LESS THAN HALF the effort. [place] lifts, holds or supports trunk or limbs, but provides less than half the effort. 2-Substantial/Maximal Assistance-helper does MORE THAN HALF the effort. [place] lifts or holds trunk or limbs and provides more than half the effort. 5-Hacsifxow-whefvg does ALL the effort. Patient does none of the effort to complete the activity. Or, the assistance of 2 or more helpers is required for the patient to complete the activity. If activity was not attempted, code reason: 7-Patient Refused. 9-Not Applicable-not attempted and the patient did not perform the activity before the current illness, exacerbation or injury. 10-Not Attempted due to Environmental Limitations-(lack of equipment, weather restraints, etc.). 88-Not Attempted due to Medical Conditions or Safety Concerns. Roll Left & Right (QC): 2 Sit to Lying (QC): 2 Lying to Sitting/Side of Bed(Q: 2 Sit to Stand (QC): 3 Pt MAX assist /c bed mobility. MOD assist /c sit<->stand. Weight Bearing Right Lower Extremity: Right Full Weight Bearing Left Lower Extremity: Left Full Weight Bearing Gait Training Does the Patient Walk?: No and Walking Goal IS indicated Gait Assistive Device: FWW Wheelchair Training Does the Pt Use a Wheelchair?: No Assessment Current Status: Fair Progress Pt very slow to complete bed mobility. Can only stand for a few seconds before needing to rest. Continue to progress pt as tolerated per POC to increase endurance, functional ability, and strength. PT Short Term Goals Short Term Goals Time Frame: Jul 02, 2022 Roll Left & Right: 4 Sit to lyin Lying to sitting on side of be: 4 Sit to stand: 4 Chair/osy-ln-kzjcg transfer: 4 Walk 10 feet: 3 Walk 50 feet with two turns: 3 PT Brain Surgeon Goals Shelter Goals PT Brain Surgeon Goals Time Frame: Jul 16, 2022 Roll Left & Right (QC): 6 Sit to Lying (QC): 6 Lying-Sitting on Side/Bed(QC): 6 Sit to Stand (QC): 6 Chair/Evd-cd-Yrvtj Xfer(QC): 6 Toilet Transfer (QC): 6 Car Transfer (QC): 4 Does the Patient Walk: Yes Walk 10 feet (QC): 4 Walk 50ft with 2 Turns (QC): 4 Walk 150 ft (QC): 4 1 Step (curb) (QC): 3 4 Steps (QC): 3 PT Plan Treatment/Plan Treatment Plan: Continue Plan of Care Treatment Plan: Bed Mobility, Education, Functional Activity Fernando, Functional Strength, Group Therapy, Gait, Safety, Therapeutic Exercise, Transfers Treatment Duration: Aug 13, 2022 Frequency: 6 times per week Estimated Hrs Per Day: .25 hour per day Patient and/or Family Agrees t: Yes Time Time In: 0845 Time Out: 901 DATE: Jun 23, 2022 Total Billed Treatment Time: 17 Total Billed Treatment 1 visit LUCAS Miller RETAIL ADVERTISING SALES MANAGER Jun 23, 2022 10:32
[2022-06-23] MEDS ORDERED: PIPERACILLIN SODIUM/TAZOBACTAM 4.5 GM in NS (IVPB) 100 ML IV ONE (14:30)
--- NOTE | 2022-06-23 14:35 | Progress Note - Hospitalist ---
Subjective HPI/CC On Admission Date Seen by Provider: Jun 23, 2022 Time Seen by Provider: 10:30 Pt is a 56yoCM with a PMH of HTN, Chronic pain, rectal cancer who presented to the [facility] duet abdominal pain. He states he has not had a BM for 2 weeks and has no longer been passing gas. His abdomen was becoming more and more distended as w ell. He has had multiple abdominal surgeries in the past for rectal carcinoma and also cystectomy and ileal conduit. CT showed possible obstructive process and severe constipation. He was admitted to surgery for further management and I am consulted for medical management. His only complaint this morning is abd pain. He denies any resultant BM or gas from his enemas. Subjective/Events-last exam He is still having pain. He has been trying to work with therapy. He has no other complaints. Objective Exam Vital Signs Vital Signs Date Time Temp Pulse Resp B/P (MAP) Pulse Ox O2 Delivery O2 Flow Rate FiO2 06/23/22 12:00 36.9 93 18 149/100 (116) 96 Room Air 06/20/22 05:00 06/19/22 10:32 30 Capillary Refill : Less Than 3 Seconds General Appearance: No Apparent Distress, Obese Respiratory: No Respiratory Distress, Decreased Breath Sounds Cardiovascular: Regular Rate, Rhythm, No Murmur Gastrointestinal: Normal Bowel Sounds, Soft, Other (colostomy, urostomy, wound vac) Extremity: Normal Inspection, Pedal Edema Neurologic/Psychiatric: Alert, Normal Mood/Affect Results/Procedures Lab Laboratory Tests 06/22/22 19:58 06/23/22 05:33 Patient resulted labs reviewed. Imaging: Reviewed Imaging Report Assessment/Plan Assessment and Plan Assess & Plan/Chief Complaint Colorectal stricture with obstruction Abdominal compartment syndrome History of rectal cancer Postoperative anemia Management per primary S/p ex lap with henriquez's pouch, end colostomy on 06/17 Hgb relatively stable, 8.3 this morning s/p 1 unit PRBC HTN BP remains elevated IV antihypertensives as needed Continue Lisinopril Add Aldactone Hypokalemia Monitor and replace as needed Debility PT/OT Previously independent IRF consult, monitoring progress with PT Shock- resolved Postoperative respiratory insufficiency- resolved Endotracheally intubated- resolved Critical Care Critically Ill Patient Diagnosis/Problems Diagnosis/Problems (1) Colonic obstruction Status: Acute (2) Colonic stricture Status: Acute (3) Abdominal compartment syndrome Status: Acute Qualifiers: Compartment syndrome type: non-traumatic Qualified Codes: M79.A3 - Nontra umatic compartment syndrome of abdomen (4) Postoperative anemia Status: Acute (5) History of rectal cancer Status: Chronic (6) Hypokalemia Status: Acute (7) Shock Status: Resolved Resolution Date/Time: 06/20/22 @ 17:58 (8) Acute postoperative respiratory insufficiency Status: Resolved (9) Endotracheally intubated Status: Resolved Resolution Date/Time: 06/20/22 @ 17:58 RACHAEL SHELDON MD Jun 23, 2022 14:35
--- NOTE | 2022-06-23 15:31 | Progress Note ---
Subjective Date Seen by a Provider: Jun 23, 2022 Time Seen by a Provider: 15:00 Subjective/Events-last exam doing ok. wound vac placed. colostomy appears dusky yet functioning. less nausea then yesterday. no fever/chills. Objective Exam Vital Signs Date Time Temp Pulse Resp B/P (MAP) Pulse Ox O2 Delivery O2 Flow Rate FiO2 06/23/22 13:05 96 06/23/22 12:00 36.9 93 18 149/100 (116) 96 Room Air 06/23/22 08:00 Room Air 06/23/22 07:57 35.3 91 18 145/92 (109) 95 Room Air 06/23/22 07:37 92 06/23/22 04:15 36.3 94 18 159/87 (111) 94 Room Air 06/23/22 01:09 92 06/23/22 00:00 36.3 87 18 140/82 (101) 95 Room Air 06/22/22 20:06 Room Air 06/22/22 19:32 36.4 83 20 153/88 (109) 98 Room Air 06/22/22 19:00 79 06/22/22 15:52 36.4 83 18 158/78 (104) 95 Room Air I & O 06/23/22 07:00 Intake Total 2400 ml Output Total 9560 ml Balance -7160 ml Capillary Refill : Less Than 3 Seconds General Appearance: No Apparent Distress HEENT: PERRL/EOMI Neck: Full Range of Motion Respiratory: Chest Non Tender, Decreased Breath Sounds Cardiovascular: Regular Rate, Rhythm Gastrointestinal: soft, tenderness, other (functional end colostomy mucosa however functional) Extremity: Normal Capillary Refill Neurologic/Psychiatric: Alert, Oriented x3 Skin: Normal Color Lymphatic: No Adenopathy Results Lab Laboratory Tests 06/22/22 17:05: Glucometer 89 06/22/22 19:58: Potassium Level 2.4*L 06/23/22 05:33: Potassium Level 2.6L, White Blood Count 13.1H, Red Blood Count 3.63L, Hemoglobin 9.4L, Hematocrit 28L, Mean Corpuscular Volume 77L, Mean Corpuscular Hemoglobin 26, Mean Corpuscular Hemoglobin Concent 34, Red Cell Distribution Width 15.7H, Platelet Count 244, Mean Platelet Volume 10.1, Immature Granulocyte % (Auto) 11, Neutrophils (%) (Auto) 71, Lymphocytes (%) (Auto) 11L, Monocytes (%) (Auto) 6, Eosinophils (%) (Auto) 1, Basophils (%) (Auto) 0, Neutrophils # (Auto) 9.3H, Lymphocytes # (Auto) 1.5, Monocytes # (Auto) 0.8, Eosinophils # (Auto) 0.1, Basophils # (Auto) 0.0, Immature Granulocyte # (Auto) 1.4H, Sodium Level 130L, Chloride Level 102, Carbon Dioxide Level 17L, Anion Gap 11, Blood Urea Nitrogen 9, Creatinine 0.66, Estimat Glomerular Filtration Rate 111, BUN/Creatinine Ratio 14, Glucose Level 105, Calcium Level 7.9L, Corrected Calcium 9.0, Phosphorus Level 2.3, Magnesium Level 1.8, Total Bilirubin 1.1H, Aspartate Amino Transf (AST/SGOT) 32, Alanine Aminotransferase (ALT/SGPT) 33, Alkaline Phosphatase 83, Total Protein 5.6L, Albumin 2.6L Microbiology 06/17/22 Blood Culture - Preliminary, Resulted Anaerobic Gram Positive [place] Culture In Progress 06/17/22 Gram Stain - Final, Complete 06/17/22 Sputum Culture - Final, Complete Escherichia coli Usual upper respiratory paramjit Assessment/Plan Assessment/Plan Assess & Plan/Chief Complaint s/p exploratory laparotomy, henriquez's pouch formation, 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 correct electrolytes. ambulate. give one unit PRBC. advance diet. ok to transfer to floor. wound infxn s/p bedside opening and packing. now has wound vac. end colostomy appears to be dusky however functional. will monitor closely. VIJAY CANNON MD Jun 23, 2022 15:30
[2022-06-23] MEDS ORDERED: KCL 20 MEQ TAB (K-DUR) PO NR ×3 (19:30→23:30)
[2022-06-23] MEDS: NS IV 500 ML 500 ML IV PRN (19:36)
[2022-06-23] MEDS: PIPERACILLIN SODIUM/TAZOBACTAM 4.5 GM in NS (IVPB) 100 ML IV SCH (22:12)
[2022-06-24] MEDS: fentaNYL INJ 100 MCG/2 ML AMP IVP PRN ×10 (00:04→20:24)
[2022-06-24] MEDS: ONDANSETRON 4 MG/2 ML (SDV) Z0FRAN IV PRN ×3 (02:20→12:05)
[2022-06-24 04:04] VITALS: BP 153/93
[2022-06-24 04:37] LABS: BASOPHILS % (AUTO) 0 % (0-10); EOSINOPHILS # (AUTO) 0.1 10^3/uL (0.0-0.3); EOSINOPHILS % (AUTO) 1 % (0-10); HEMATOCRIT 28 % (40-54); HEMOGLOBIN 9.6 g/dL (13.3-17.7); LYMPHOCYTES # (AUTO) 1.6 10^3/uL (1.0-4.0); LYMPHOCYTES % (AUTO) 12 % (12-44); MEAN CORPUSCULAR HEMOGLOBIN 26 pg (25-34); MEAN CORPUSCULAR HGB CONC 34 g/dL (32-36); MEAN CORPUSCULAR VOLUME 77 fL (80-99); MEAN PLATELET VOLUME 10.3 fL (9.0-12.2); MONOCYTES # (AUTO) 0.7 10^3/uL (0.0-1.0); MONOCYTES % (AUTO) 5 % (0-12); NEUTROPHILS # (AUTO) 9.8 10^3/uL (1.8-7.8); NEUTROPHILS % (AUTO) 73 % (42-75); PLATELET COUNT 273 10^3/uL (130-400); WHITE BLOOD COUNT 13.3 10^3/uL (4.3-11.0)
[2022-06-24 05:19] LABS: ALBUMIN 2.6 GM/DL (3.2-4.5); BILIRUBIN,TOTAL 0.9 MG/DL (0.1-1.0); CALCIUM 7.8 MG/DL (8.5-10.1); CREATININE SERUM 0.64 MG/DL (0.60-1.30); MAGNESIUM 1.8 MG/DL (1.6-2.4); PHOSPHORUS 2.1 MG/DL (2.3-4.7); TOTAL PROTEIN 5.5 GM/DL (6.4-8.2)
[2022-06-24] MEDS: POTASSIUM CL 10MEQ/50ML IVPB 50 ML IV SCH ×7 (05:23→10:31)
[2022-06-24] MEDS: MAGNESIUM 1 GM/100 ML IVPB 100 ML IV SCH (05:23)
[2022-06-24] MEDS: KCL 20 MEQ TAB (K-DUR) PO SCH (05:24)
[2022-06-24] MEDS: PIPERACILLIN SODIUM/TAZOBACTAM 4.5 GM in NS (IVPB) 100 ML IV SCH ×3 (06:07→21:00)
[2022-06-24 08:00] VITALS: BP 169/97
[2022-06-24] MEDS: PANTOPRAZOLE 40 MG (PROTONIX) VIAL IV SCH ×2 (08:26→20:23)
--- NOTE | 2022-06-24 08:31 | Occ Therapy Progress Note ---
Therapy Progress Note COREAS attempted to see pt. Pt nauseous, increased pain and pallor skin. Nrsg in room, recommended to hold therapy at this time. Will attempt at next available time. DOMINIQUE MCCOY Jun 24, 2022 08:31
[2022-06-24] MEDS: SPIRONOLACTONE 25 MG (ALDACTONE) TAB PO SCH (08:33)
[2022-06-24] MEDS: PREGABALIN 150 MG (LYRICA) CAPSULE PO SCH ×2 (08:33→20:23)
[2022-06-24] MEDS: lisINopril 20 MG (PRINIVIL) TABLET PO SCH (08:33)
[2022-06-24] MEDS: PREGABALIN 75 MG (LYRICA) CAP PO SCH ×2 (08:33→20:23)
--- NOTE | 2022-06-24 09:05 | Physical Therapy Progress Note ---
Therapy Progress Note Pt reports feeling sick this morning and does not feel well enough for PT. Tells TELETYPE OPERATOR to come back in the afternoon. LUCAS RAMESH PTA Jun 24, 2022 09:05
--- NOTE | 2022-06-24 11:40 | Progress Note ---
Subjective Date Seen by a Provider: Jun 24, 2022 Time Seen by a Provider: 11:00 Subjective/Events-last exam doing ok. seems very depressed. states one small episode of emesis however tolerating majority of diet for the most part. colostomy remains dusky however continue to fxn well. Objective Exam Vital Signs Date Time Temp Pulse Resp B/P (MAP) Pulse Ox O2 Delivery O2 Flow Rate FiO2 06/24/22 08:00 36.2 101 20 169/97 (121) 95 Room Air 06/24/22 08:00 Room Air 06/24/22 07:00 100 06/24/22 04:04 36.0 97 20 153/93 (113) 98 Room Air 0.00 0.00 06/24/22 01:00 100 06/23/22 23:44 36.2 94 20 164/91 (115) 96 Room Air 06/23/22 20:00 Room Air 06/23/22 19:15 36.4 99 20 169/88 (115) 95 Room Air 06/23/22 19:00 101 06/23/22 16:12 36.5 90 24 128/82 (97) 94 Room Air 06/23/22 13:05 96 06/23/22 12:00 36.9 93 18 149/100 (116) 96 Room Air I & O 06/24/22 07:00 Intake Total 2950 ml Output Total 4025 ml Balance -1075 ml Capillary Refill : Less Than 3 Seconds General Appearance: No Apparent Distress HEENT: PERRL/EOMI Neck: Full Range of Motion Respiratory: Decreased Breath Sounds Cardiovascular: Regular Rate, Rhythm Gastrointestinal: soft, tenderness, other (end colostomy dusky however functional, wound vac in place) Extremity: Normal Capillary Refill Neurologic/Psychiatric: Alert, Oriented x3 Skin: Normal Color Lymphatic: No Adenopathy Results Lab Laboratory Tests 06/23/22 17:40: Potassium Level 2.6L 06/24/22 04:30: Potassium Level 3.0L, White Blood Count 13.3H, Red Blood Count 3.66L, Hemoglobin 9.6L, Hematocrit 28L, Mean Corpuscular Volume 77L, Mean Corpuscular Hemoglobin 26, Mean Corpuscular Hemoglobin Concent 34, Red Cell Distribution Width 15.5H, Platelet Count 273, Mean Platelet Volume 10.3, Immature Granulocyte % (Auto) 9, Neutrophils (%) (Auto) 73, Lymphocytes (%) (Auto) 12, Monocytes (%) (Auto) 5, Eosinophils (%) (Auto) 1, Basophils (%) (Auto) 0, Neutrophils # (Auto) 9.8H, Lymphocytes # (Auto) 1.6, Monocytes # (Auto) 0.7, Eosinophils # (Auto) 0.1, Basophils # (Auto) 0.0, Immature Granulocyte # (Auto) 1.2H, Sodium Level 131L, Chloride Level 104, Carbon Dioxide Level 16L, Anion Gap 11, Blood Urea Nitrogen 11, Creatinine 0.64, Estimat Glomerular Filtration Rate 112, BUN/Creatinine Ratio 17, Glucose Level 112H, Calcium Level 7.8L, Corrected Calcium 8.9, Phosphorus Level 2.1L, Magnesium Level 1.8, Total Bilirubin 0.9, Aspartate Amino Transf (AST/SGOT) 29, Alanine Aminotransferase (ALT/SGPT) 34, Alkaline Phosphatase 102, Total Protein 5.5L, Albumin 2.6L Microbiology 06/17/22 Blood Culture - Final, Complete Eggerthella lenta See Comments 06/17/22 Gram Stain - Final, Complete 06/17/22 Sputum Culture - Final, Complete Escherichia coli Usual upper respiratory paramjit Assessment/Plan Assessment/Plan Assess & Plan/Chief Complaint s/p exploratory laparotomy, henriquez's pouch formation, 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 correct electrolytes. ambulate. give one unit PRBC. advance diet. ok to transfer to floor. wound infxn s/p bedside opening and packing. now has wound vac. end colostomy appears to be dusky however functional. will monitor closely. awaiting possible transfer to rehab. very depressed and may need psych consult. VIJAY CANNON MD Jun 24, 2022 11:40
--- NOTE | 2022-06-24 12:28 | Physician Query Clarification ---
Physician Query-General Query to Physician: The medical record reflects the following clinical scenario: The patient, in the setting of History/Risk factors, Abdomen rigid and distended on admission, Had endoscopic procedure on 06/17/2022 with "possible aspiration" Clinical Findings Procedure completed at 1509 on 06/17/2022 within 2 hours of this patient required Manual ventilation, 02 a 10L and then intubation, placed on Mechanical ventilation with 02 sat initially 89-90 on 100% FiO2 (P/F=57), later that day taken back to OR for Ex Lap/Quintanilla's pouch gradually weaned off vent over 24 to 48 hours (approx 44 hours) and was able to be weaned to RA in less than 24 hours later Treatment High flow 02, Intubation with mechanical ventilation and weaning 24 to 48 hours, ICU monitoring, Question: Do you agree with the impression of Postoperative Respiratory failure (improved and extubated) per Dr. Sunny Monterroso? 1. Yes; will document Postoperative Respiratory Failure, now resolved in the Progress Notes 2. No; will continue current documentation in the Progress Notes 3. Other; will document explanation of clinical findings 4. Clinically undetermined; no explanation for clinical findings Please clarify and document your clinical opinion in the Progress Notes and Discharge Summary including the definitive and/or presumptive diagnosis, (suspected or probable), related to the above clinical findings. Please include clinical findings supporting your diagnosis. In responding to this query, please exercise your independent professional judgment. The purpose of this communication is to more accurately reflect the complexity of your patients condition. The fact that a question is asked does not imply that any particular answer is desired or expected. Thank you for timely response to this clarification. Johanna Whitfield, MSN, RN, Clinical Mining And Quarrying Machinery Repairer [phone] [email or web address] PHYSICIAN RESPONSE: Based on the clinical findings in the record, please respond to the query above on this document as an addendum. Physician Response: Physician Response already documented If you have questions please contact: Special Collections Librarian: Ext: Thank you for your time and cooperation. Clinical Mining And Quarrying Machinery Repairer/Special Collections Librarian This is a permanent part of the medical record JOHANNA WHITFIELD Jun 24, 2022 12:28 RACHAEL SHELDON MD Jun 24, 2022 12:39
[2022-06-24] MEDS ORDERED: SCOPOLAMINE 1.5 MG (TRANSDERM-SCOP) PATCH TD NR (12:30)
--- NOTE | 2022-06-24 12:41 | Progress Note - Hospitalist ---
Subjective HPI/CC On Admission Date Seen by Provider: Jun 24, 2022 Time Seen by Provider: 11:10 Pt is a 56yoCM with a PMH of HTN, Chronic pain, rectal cancer who presented to the [facility] du[facility] abdominal pain. He states he has not had a BM for 2 weeks and has no longer been passing gas. His abdomen was becoming more and more distended as w ell. He has had multiple abdominal surgeries in the past for rectal carcinoma and also cystectomy and ileal conduit. CT showed possible obstructive process and severe constipation. He was admitted to surgery for further management and I am consulted for medical management. His only complaint this morning is abd pain. He denies any resultant BM or gas from his enemas. Subjective/Events-last exam He is feeling ok. He is still in pain. He has been working with therapy. He has no other complaints. Objective Exam Vital Signs Vital Signs Date Time Temp Pulse Resp B/P (MAP) Pulse Ox O2 Delivery O2 Flow Rate FiO2 06/24/22 08:00 36.2 101 20 169/97 (121) 95 Room Air 06/24/22 04:04 0.00 0.00 06/19/22 10:32 30 Capillary Refill : Less Than 3 Seconds General Appearance: No Apparent Distress, Obese Respiratory: Lungs Clear, No Respiratory Distress Cardiovascular: Regular Rate, Rhythm, No Murmur Gastrointestinal: Normal Bowel Sounds, Soft, Other (colostomy, urostomy, wound vac) Extremity: Normal Inspection, No Pedal Edema Neurologic/Psychiatric: Alert, Normal Mood/Affect Results/Procedures Lab Laboratory Tests 06/23/22 17:40 06/24/22 04:30 Patient resulted labs reviewed. Imaging: Reviewed Imaging Report Assessment/Plan Assessment and Plan Assess & Plan/Chief Complaint Colorectal stricture with obstruction Abdominal compartment syndrome History of rectal cancer Postoperative anemia Management per primary S/p ex lap with henriquez's pouch, end colostomy on 06/17 Hgb relatively stable, 8.3 this morning s/p 1 unit PRBC HTN BP remains elevated IV antihypertensives as needed Continue Lisinopril and Aldactone Hypokalemia Monitor and replace as needed Debility PT/OT Previously independent IRF consult, submitting to insurance Shock- resolved Postoperative respiratory insufficiency- resolved Endotracheally intubated- resolved Critical Care Critically Ill Patient Diagnosis/Problems Diagnosis/Problems (1) Colonic obstruction Status: Acute (2) Colonic stricture Status: Acute (3) Abdominal compartment syndrome Status: Acute Qualifiers: Compartment syndrome type: non-traumatic Qualified Codes: M79.A3 - Nontraumatic compartment syndrome of abdomen (4) Postoperative anemia Status: Acute (5) History of rectal cancer Status: Chronic (6) Hypokalemia Status: Acute (7) Shock Status: Resolved Resolution Date/Time: 06/20/22 @ 17:58 (8) Acute postoperative respiratory insufficiency Status: Resolved (9) Endotracheally intubated Status: Resolved Resolution Date/Time: 06/20/22 @ 17:58 RACHAEL SHELDON MD Jun 24, 2022 12:41
[2022-06-24 12:42] VITALS: BP_SYST 117; BP_SYST 170; BP_DIAS 100; BP_DIAS 62
--- NOTE | 2022-06-24 13:32 | Occ Therapy Progress Note ---
Therapy Progress Note Pt continues to be nauseous/vomiting and incontinent of bowel, unable to see pt at this time. OT to check on pt at next available date. DOMINIQUE MCCOY Jun 24, 2022 13:31
[2022-06-24] MEDS: oxyCODONE/APAP 10/325MG (PERCOCET 10) TABLET PO PRN (13:44)
[2022-06-24 15:36] VITALS: BP 125/79
--- NOTE | 2022-06-24 16:23 | Diagnostic Imaging Report ---
CLINICAL INDICATION: Patient with altered mental status, confusion and weakness. EXAM: Axial CT scan of the brain performed without IV contrast. High-resolution axial CT brain images with sagittal and coronal reformations were also created. Auto Exposure Controls were utilized during the CT exam to meet ALARA standards for radiation dose reduction. COMPARISON: CT scan of the head and cervical spine without contrast dated 04/25/2017. FINDINGS: There is no evidence of acute cerebral infarct, intracranial hemorrhage, or gross mass effect. The brain parenchymal volume appears appropriate for patient's age. There is normal moscoso-white matter distinction. There is no significant midline shift or herniation. Stable suspected prominent perivascular spaces beneath the bilateral basal ganglia regions. There is no evidence of hydrocephalus. The basal cisterns are unremarkable. The skull, extracranial soft tissue, and orbits are unremarkable. The paranasal sinuses are unremarkable. Temporal bones show no significant abnormality. IMPRESSION: 1: Stable CT scan of the brain with no evidence of acute intracranial process. There is no dense vessel sign. Results of this report were discussed with Dr. Justo Montelongo via the telephone on 06/24/2022 at 1618 hours. Dictated by: Dictated on workstation # [id number]
[2022-06-24 19:39] VITALS: BP_SYST 145; BP_SYST 169; BP_DIAS 76; BP_DIAS 90
[2022-06-25] VITALS (10 sets, daily range): BP systolic 107–164; BP diastolic 67–99
[2022-06-25 04:29] LABS: BASOPHILS % (AUTO) 0 % (0-10); EOSINOPHILS # (AUTO) 0.1 10^3/uL (0.0-0.3); EOSINOPHILS % (AUTO) 1 % (0-10); HEMATOCRIT 27 % (40-54); LYMPHOCYTES # (AUTO) 1.7 10^3/uL (1.0-4.0); LYMPHOCYTES % (AUTO) 13 % (12-44); MEAN CORPUSCULAR HEMOGLOBIN 26 pg (25-34); MEAN CORPUSCULAR HGB CONC 33 g/dL (32-36); MEAN CORPUSCULAR VOLUME 77 fL (80-99); MEAN PLATELET VOLUME 10.5 fL (9.0-12.2); MONOCYTES # (AUTO) 0.7 10^3/uL (0.0-1.0); MONOCYTES % (AUTO) 5 % (0-12); NEUTROPHILS # (AUTO) 9.2 10^3/uL (1.8-7.8); NEUTROPHILS % (AUTO) 72 % (42-75); PLATELET COUNT 292 10^3/uL (130-400); WHITE BLOOD COUNT 12.8 10^3/uL (4.3-11.0)
[2022-06-25 04:51] LABS: ALBUMIN 2.5 GM/DL (3.2-4.5); BILIRUBIN,TOTAL 0.8 MG/DL (0.1-1.0); CALCIUM 7.9 MG/DL (8.5-10.1); CREATININE SERUM 0.7 MG/DL (0.60-1.30); MAGNESIUM 1.7 MG/DL (1.6-2.4); PHOSPHORUS 2.5 MG/DL (2.3-4.7); POTASSIUM 2.9 MMOL/L (3.6-5.0); TOTAL PROTEIN 5.4 GM/DL (6.4-8.2)
[2022-06-25] MEDS ORDERED: MAGNESIUM 1 GM/100 ML IVPB 100 ML IV SCH (05:00)
[2022-06-25] MEDS: POTASSIUM CL 10MEQ/50ML IVPB 50 ML IV SCH ×5 (05:04→15:05)
[2022-06-25] MEDS: MAGNESIUM 1 GM/100 ML IVPB 100 ML IV SCH ×3 (05:05→11:46)
[2022-06-25] MEDS: KCL 20 MEQ TAB (K-DUR) PO SCH ×5 (05:05→15:07)
[2022-06-25] MEDS: oxyCODONE/APAP 10/325MG (PERCOCET 10) TABLET PO PRN (05:18)
[2022-06-25] MEDS: PIPERACILLIN SODIUM/TAZOBACTAM 4.5 GM in NS (IVPB) 100 ML IV SCH ×2 (05:19→14:01)
[2022-06-25] MEDS: PREGABALIN 150 MG (LYRICA) CAPSULE PO SCH ×2 (09:05→10:30)
[2022-06-25] MEDS: SPIRONOLACTONE 25 MG (ALDACTONE) TAB PO SCH ×2 (09:05→10:30)
[2022-06-25] MEDS: PANTOPRAZOLE 40 MG (PROTONIX) VIAL IV SCH (09:05)
[2022-06-25] MEDS: PREGABALIN 75 MG (LYRICA) CAP PO SCH ×2 (09:05→10:31)
[2022-06-25] MEDS: lisINopril 20 MG (PRINIVIL) TABLET PO SCH ×2 (09:05→10:31)
[2022-06-25] MEDS ORDERED: fentaNYL INJ 100 MCG/2 ML AMP IVP PRN (10:45)
--- NOTE | 2022-06-25 10:47 | Tele-ICU Progress Note ---
Subjective Date Seen by a Provider: Jun 25, 2022 Subjective/Events-last exam This virtual visit was conducted using real time audio/video. Thank you for asking us to see this patient for AMS/possible sepsis, transferred from floor. Admitted 06/15 w colonic obstruction, now has end colostomy, Reyes's Pouch and wound vac. PMH:HTN, rectal CA, ileal conduit. SH: smoking history: never PE: Highly somnolent. VSS. O2 sat 94% on RA HEENT: No obvious masses, adenopathy or JVD. Chest: clear to auscultation. CV: RRR S1 S2 No murmur or added sounds. Abd: Per RN. Bowel sounds diminished. : Unremarkable. Gonzalez Y. CRIMINAL RESEARCHER/psychiatric: Grossly intact. No obvious focal findings. Extremities: No edema. thready pulses. Skin: reddened, discolored around wound vac.. Results: Elevated WCC 12.8. Decreased Hb9.0, Na 133, K2.9, Alb 2.5. CXR: 06/17/2022 unremarkable. CTH normal. Available chart/ vitals / labs / images reviewed. Video assessment done using teleICU camera, rest of exam as per RN. A/P: AMS with possible sepsis. To be seen by surgery. Critical Care: critically ill patient. Cont.PPI, abx, heparin. Change Fent to IV. Discussed with JOSH Hughes. Asked RN to reach out to eICU if any questions or concerns later. Time spent with patient/coordination of care with other health professionals (mins): Sepsis Event Evaluation Height, Weight, BMI Height: 5'7.00" Weight: 197lbs. 3.0oz. [id number]; 36.22 BMI Method:Estimated Exam Exam Patient acknowledged, consented, and participated in this virtual visit which was conducted using real time audio/video Vital Signs Date Time Temp Pulse Resp B/P (MAP) Pulse Ox O2 Delivery O2 Flow Rate FiO2 06/25/22 08:26 37.0 79 18 149/82 (104) Room Air 06/25/22 07:00 78 06/25/22 04:33 36.4 86 18 148/74 (98) 97 Room Air 06/25/22 01:00 92 06/25/22 00:35 36.2 97 18 130/84 (99) 95 Room Air 06/24/22 20:23 Room Air 06/24/22 19:39 36.9 99 18 145/76 (99) 97 Room Air 06/24/22 19:00 100 06/24/22 15:36 36.0 96 20 125/79 (94) 97 Room Air 06/24/22 13:00 107 06/24/22 12:42 36.3 101 21 170/100 (123) 96 Room Air I & O 06/25/22 06:59 Intake Total 2210 ml Output Total 3843 ml Balance -1633 ml Height & Weight Height: 5'7.00" Weight: 197lbs. 3.0oz. 89.410122gx; 36.22 BMI Method:Estimated General Appearance: No Apparent Distress, Obese HEENT: PERRL/EOMI Neck: Full Range of Motion Respiratory: Lungs Clear, No Respiratory Distress Cardiovascular: Regular Rate, Rhythm, No Murmur Capillary Refill: Less Than 3 Seconds Gastrointestinal: soft, tenderness, other (end colostomy dusky however functional, wound vac in place) Extremity: Normal Inspection, No Pedal Edema Neurologic/Psychiatric: Alert, Normal Mood/Affect Skin: Normal Color Lymphatic: No Adenopathy Results Lab Laboratory Tests 06/23/22 17:40 06/24/22 04:30 06/24/22 20:55 06/25/22 04:22 Assessment/Plan Assessment/Plan See free text. Critical Care: Critically Ill Patient ONESIMO MENDOZA MD Jun 25, 2022 10:47
[2022-06-25] MEDS: PROMETHAZINE INJ 25 MG/ML (PHENERGAN) AMP IVP PRN (11:45)
[2022-06-25] MEDS: HYDROmorphone 2 MG/ML VIAL (DILAUDID) IV PRN (11:45)
[2022-06-25] MEDS: NS IV 500 ML 500 ML IV PRN (11:47)
[2022-06-25] MEDS ORDERED: LACTATED RINGERS 1,000 ML IV PRN (13:15)
--- NOTE | 2022-06-25 13:15 | Progress Note - Surgery ---
Subjective Time Seen by a Provider: 11:57 Subjective/Events-last exam Pt seen and examined in the ICU. I was actually on the fourth floor when I saw him get moved up to ICU. The nurse stated he was hypotensive and bradycardcic with flat affect and not really answering questions; nurse was concerned with altered mental status and thought he might be septic. When I saw him in the ICU he was slow to answer questions, but did not appear to be in severe distress. His BP was 160/79 and HR was in the 90s. He seemed to be a little confused and only had minimal abdominal pain. The nurse was concerned with midline incision and wound VAC, also concerned about the ostomy. "It smells bad". Review of Systems General: Fatigue, Malaise Pulmonary: No Dyspnea, No Cough Cardiovascular: No: Chest Pain, Palpitations Gastrointestinal: Abdominal Pain; No: Nausea, Vomiting Genitourinary: Other (has urostomy) Neurological: Incoordination, Change in speech, Confusion Objective Exam Vital Signs Date Time Temp Pulse Resp B/P (MAP) Pulse Ox O2 Delivery O2 Flow Rate FiO2 06/25/22 12:57 87 06/25/22 12:00 36.0 06/25/22 12:00 92 25 161/92 (115) 94 Room Air 06/25/22 11:00 73 24 149/92 (111) 97 Room Air 06/25/22 10:00 89 23 151/89 (109) 97 Room Air 06/25/22 09:00 73 135/77 (96) Room Air 06/25/22 08:26 37.0 79 18 149/82 (104) Room Air 06/25/22 07:00 78 06/25/22 04:33 36.4 86 18 148/74 (98) 97 Room Air 06/25/22 01:00 92 06/25/22 00:35 36.2 97 18 130/84 (99) 95 Room Air 06/24/22 20:23 Room Air 06/24/22 19:39 36.9 99 18 145/76 (99) 97 Room Air 06/24/22 19:00 100 06/24/22 15:36 36.0 96 20 125/79 (94) 97 Room Air I & O 06/25/22 07:00 Intake Total 2210 ml Output Total 3843 ml Balance -1633 ml Capillary Refill : Less Than 3 Seconds General Appearance: Mild Distress, Obese HEENT: PERRL/EOMI, Other (poor dentition) Respiratory: Lungs Clear, Normal Breath Sounds, No Accessory Muscle Use, No Respiratory Distress Cardiovascular: Regular Rate, Rhythm, No Murmur Gastrointestinal: soft, tenderness, other (Wound vac in midline looks completely normal, Ostomy smells foul and is actually necrotic) Extremity: No Pedal Edema Neurologic/Psychiatric: Alert Skin: Normal Color Results Lab Laboratory Tests 06/24/22 15:42: Glucometer 111H 06/24/22 20:55: Potassium Level 2.8L 06/25/22 04:22: Potassium Level 2.9L, White Blood Count 12.8H, Red Blood Count 3.52L, Hemoglobin 9.0L, Hematocrit 27L, Mean Corpuscular Volume 77L, Mean Corpuscular Hemoglobin 26, Mean Corpuscular Hemoglobin Concent 33, Red Cell Distribution Width 16.1H, Platelet Count 292, Mean Platelet Volume 10.5, Immature Granulocyte % (Auto) 9, Neutrophils (%) (Auto) 72, Lymphocytes (%) (Auto) 13, Monocytes (%) (Auto) 5, Eosinophils (%) (Auto) 1, Basophils (%) (Auto) 0, Neutrophils # (Auto) 9.2H, Lymphocytes # (Auto) 1.7, Monocytes # (Auto) 0.7, Eosinophils # (Auto) 0.1, Basophils # (Auto) 0.0, Immature Granulocyte # (Auto) 1.1H, Sodium Level 133L, Chloride Level 106, Carbon Dioxide Level 16L, Anion Gap 11, Blood Urea Nitrogen 12, Creatinine 0.70, Estimat Glomerular Filtration Rate 109, BUN/Creatinine Ratio 17, Glucose Level 108H, Calcium Level 7.9L, Corrected Calcium 9.1, Phosphorus Level 2.5, Magnesium Level 1.7, Total Bilirubin 0.8, Aspartate Amino Transf (AST/SGOT) 23, Alanine Aminotransferase (ALT/SGPT) 32, Alkaline Phosphatase 89, Total Protein 5.4L, Albumin 2.5L Microbiology 06/17/22 Blood Culture - Final, Complete Eggerthella lenta See Comments 06/17/22 Gram Stain - Final, Complete 06/17/22 Sputum Culture - Final, Complete Escherichia coli Usual upper respiratory paramjit Assessment/Plan Assessment/Plan Assessment/Plan Necrotic Ostomy s/p exploratory laparotomy, henriquez's pouch formation, 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 Pt will need to go Urgently to the OR for revision of colostomy, I am hoping I can just do this through the current ostomy site. When I was palpating the area I could not tell if all of the colon had or just the distal portion. I also was unable to to tell if it went into the abdomen. He will need this area explored and may need to do an exploratory laparotomy through midline. I am very concerned about what the rest of the bowel looks like and feel like the distended colon initially may not be the healthiest. When I looked at CT I would have considered sub-total colectomy; however, I do not know what it looked like during surgery. My concern is that it was so dilated it may not even function. SHRUTI EDWARDS DO Jun 25, 2022 13:15
[2022-06-25] MEDS ORDERED: MIDAZOLAM 2 MG/2 ML (VERSED) VIAL ONE (15:43)
[2022-06-25] MEDS ORDERED: fentaNYL INJ 100 MCG/2 ML AMP ONE (15:43)
[2022-06-25] MEDS ORDERED: HYDROmorphone 2 MG/ML VIAL (DILAUDID) ONE (16:32)
[2022-06-25] MEDS ORDERED: proPOfol 200 MG/20 ML (DIPRIVAN) VIAL IV ONE (16:37)
[2022-06-25] MEDS ORDERED: LIDOCAINE PF 2% 5 ML (XYLOCAINE) VIAL ONE (16:37)
[2022-06-25] MEDS ORDERED: SUCCINYLCHOLINE INJ 20 MG/1 ML 10 ML VIAL ONE (16:37)
[2022-06-25] MEDS ORDERED: ROCURONIUM 10 MG/ML 5 ML SYRINGE IV ONE ×2 (16:37→17:22)
[2022-06-25] MEDS ORDERED: ONDANSETRON 4 MG/2 ML (SDV) Z0FRAN ONE (16:37)
[2022-06-25] MEDS ORDERED: PHENYLEPHRINE 100 MCG/ML 10 ML (ANESTHESIA) SYR ONE (17:15)
[2022-06-25] MEDS ORDERED: SEVOFLURANE (ULTANE) 15 ML INHAL SOLN ONE (17:23)
[2022-06-25] MEDS ORDERED: fentaNYL DRIP PRE-MIX 250 ML IV SCH (18:00)
[2022-06-25] MEDS ORDERED: fentaNYL DRIP PRE-MIX 250 ML IV ONE (18:09)
--- NOTE | 2022-06-25 18:21 | Progress Note-Post Operative ---
Post-Operative Progess Note Surgeon (s)/Accounting Teacher (s) Surgeon SHRUTI EDWARDS DO Accounting Teacher: Jeana Pre-Operative Diagnosis Necrotic Ostomy/colon Post-Operative Diagnosis Necrotic sigmoid colon dehiscence of rectal stump Intraperitoneal abscess possible perforation of ileal conduit Procedure & Operative Findings Date of Procedure 06/25/22 Procedure Performed/Findings Exploratory laparotomy with Take down of colostomy and Sigmoid colon resection Repair of Ileal conduit Placement of Abthera wound VAC Anesthesia Type GET Estimated Blood Loss Estimated blood loss (mL): appx 100ml Specimens/Packing Specimens Removed portion of sigmoid colon Packin SHRUTI EDWARDS DO Jun 25, 2022 18:21
[2022-06-25] MEDS ORDERED: PROPOFOL DRIP (ICU) 100 ML IV ONE (18:45)
[2022-06-25] MEDS ORDERED: PROPOFOL DRIP (ICU) 100 ML IV SCH (19:00)
[2022-06-25] MEDS ORDERED: NORMAL SALINE 250 ML ONE (21:57)
--- NOTE | 2022-06-25 23:01 | OPERATIVE REPORT ---
PREOPERATIVE DIAGNOSIS: Necrotic colostomy, possible colon. POSTOPERATIVE DIAGNOSES: 1. Necrotic sigmoid colon. 2. Dehiscence of rectal stump. 3. Intraperitoneal abscess. 4. Possible perforation of ileal conduit. PROCEDURES: 1. Exploratory laparotomy with takedown of colostomy and sigmoid colon resection. 2. Repair of ileal conduit. 3. Placement of ABThera wound VAC. SURGEON: Gildardo Henry DO LIGHTING TECHNICIAN: Dr. Hills. ANESTHESIA: General endotracheal tube. SPECIMENS: Portion of sigmoid colon. BLOOD LOSS: Approximately 100 mL. FLUIDS: Per anesthesia. POSTOPERATIVE CONDITION: Stable, but guarded. INDICATIONS FOR PROCEDURE: The patient is a 56-year-old male who has had a long process of multiple medical problems with previous colorectal cancer, neurogenic bladder and then ileal conduit creation. He has had previous suprapubic catheter as well as nephrostomy tubes. He came in on this admission with abdominal distention and pain. CT showed rectal stricture and very dilated colon. Attempted to decompress this in endoscopy, this did not work and the patient was then taken to the OR where he had extensive lysis of adhesions, resection of the rectal stricture and then creation of a colostomy with the sigmoid colon. The patient then has been in and out of the ICU. He would have rapids called on him, getting better and then doing worse. He was on the fourth floor tonight, transferred to the ICU, possible mental status changes, thought to be possibly septic. I saw him in the ICU and he has had a foul smelling of the colostomy and colon was . Told him that we would need to take him to the OR, possibly could repair this with the ostomy or he would need exploratory laparotomy with all other indicated procedures. FINDINGS: The patient had necrotic sigmoid colon that had back and was spilling fecal material into the abdomen. He also had dehiscence of the rectal stump. He had intraperitoneal abscess. His small intestine was very dilated. There were adhesions that were taken down and then there was possible perforation of the portion of the ileal conduit. DESCRIPTION OF PROCEDURE: After informed consent was obtained, the patient was brought to the operating room. We had draped off the ileostomy, taken out the right drain and he was then prepped with Betadine. Wound VAC was taken down, opened the incision. Immediately upon entry, noted very dilated. We were not sure whether it was colon or small intestine, found to be small intestine. We opened the incision opening the previous closure, then opening further in superior direction. The stomach was very dilated, had NG tube placed, suctioned this out. I then started trying to free up the small intestine, able to mostly finger fracture this gently and also used a lap sponge to gently separate the adhesions trying to find this area. Once we were able to get in, could see that the portion of sigmoid colon had back at least 7-8 inches, spilling some fecal material into the abdomen. This was pulled out of the ostomy opening, then started trying to run the small intestine to kind of find the large intestine, freeing the adhesions up in the upper abdomen and then because it was so distended, we milked some of this fluid in the small intestine back into the stomach. This was suctioned out through the NG tube. Trying to stay away from the ileal conduit that was on the left abdominal wall, going into the pelvis and we got into the pelvis, there was abscess. In fact, there was abscess in between the small bowel loops in the mesentery. Opening up, we were getting out abscess purulent fluid and then down in the pelvis appeared that the rectal stump had dehisced. There was stool and abscess and then in the left lower quadrant while we were trying to figure out where the sigmoid colon went carefully trying to finger fracture, irrigating, suctioning this out and then using blunt dissection as well as some sharp dissection with Metzenbaum scissors, noted an opening and clear fluid was coming out. This was possibly the ileal conduit. I am not sure whether this was iatrogenic or from the abscess, but elected to close this with 3-0 Vicryl running suture to close this area. I had elected to resect the necrotic sigmoid colon with a ADRIANA-75, clamped, held for 30 seconds and then fired removing the necrotic portion of colon. At this point, Dr. Hills and I had a discussion of what was the next best step. We had discussed possible loop colostomy to avoid the sigmoid area, but the main concern was if we were in the ileal conduit, this will need repaired. He might need percutaneous nephrostomy tubes and Urology to take a look at this and we can do not have Urology or any of that available here, so we elected to place an ABThera wound VAC, placed in the abdomen as well as small portion in the old colostomy opening, bridged together and then placed ABThera VAC, suctioned down and hooked up the wound VAC to -125. This wound VAC covered almost the entire abdomen and was greater than 50 square cm. It suctioned down nicely. No air leaks and at this time, I elected to just stop and get this patient transferred up to a tertiary center. Sponge, instrument and needle counts were correct at the end of the case. Dr. Hills helped to assist on this case, identifying anatomy, holding anatomy out of the way and closing. Job ID: [id number] DocumentID: [id number] Dictated Date: 06/25/2022 18:26:53 Bow Maker Machine Tender Date: 06/25/2022 22:59:00 Dictated By: DO KEISHA ROSARIO
[2022-06-27] MEDS ORDERED: SCOPOLAMINE PATCH REMOVAL TP NR (12:29)
--- NOTE | 2022-06-27 13:48 | Anesthesia-General Post-Op ---
General Post Op Complications Complications None Follow Up Care/Instructions Patient Instructions None needed. Anesthesia/Patient Condition Patient Condition A postoperative anesthesia visit was unable to be done secondary to patient being transferred postop on 06-25-22 for a higher level of care. VISHNU ROSEN DO Jun 27, 2022 13:48
== END 2022-06-25 22:01 | disposition short-term general hospital (02) | DRG 329 ==
LOC: EDUNIT# 16:47 → ER 16:50 → 4TH 19:15 → ICU 06-17 15:36 → 4TH 06-21 19:11 → ICU 06-25 09:46
PROVIDERS: ADMIT Surgery; ATTEND Surgery
PROC: 0D7 Gastrointestinal System, Dilation (ICD-10-PCS; 2022-06-16)
PROC: 0D7N8ZZ Dilation of Sigmoid Colon, Via Natural or Artificial Opening Endoscopic (ICD-10-PCS; 2022-06-17)
PROC: 0D1N0Z4 Bypass Sigmoid Colon to Cutaneous, Open Approach (ICD-10-PCS; principal; 2022-06-17 14:32)
PROC: 0DBN0ZZ Excision of Sigmoid Colon, Open Approach (ICD-10-PCS; 2022-06-25)
PROC: 0DQB0ZZ Repair Ileum, Open Approach (ICD-10-PCS; 2022-06-25)
DX: K91.89 Other postprocedural complications and disorders of digestive system (principal); J95.821 Acute postprocedural respiratory failure; K65.1 Peritoneal abscess; M79.A3 Nontraumatic compartment syndrome of abdomen; R57.9 Shock, unspecified; T81.32XA Disruption of internal operation (surgical) wound, not elsewhere classified, initial encounter; K94.09 Other complications of colostomy; D64.9 Anemia, unspecified; E87.6 Hypokalemia; K59.09 Other constipation; R32 Unspecified urinary incontinence; N31.9 Neuromuscular dysfunction of bladder, unspecified; E78.00 Pure hypercholesterolemia, unspecified; I10 Essential (primary) hypertension; G62.9 Polyneuropathy, unspecified; K21.9 Gastro-esophageal reflux disease without esophagitis; F41.9 Anxiety disorder, unspecified; F32.A Depression, unspecified; Z85.038 Personal history of other malignant neoplasm of large intestine; Z88.5 Allergy status to narcotic agent
CPT/HCPCS: 36415; 70450; 71045; 74176; 80048; 80053; 82805; 82947; 83605; 83690; 83735; 84100; 84132; 84478; 84484; 85014; 85018; 85025; 85027; 86850; 86900; 86901; 86920; 87040; 87070; 87077; 87186; 87205; 94002; 94003; 94799; 96361; 96374; 96375